=== PATIENT | male | born 1980 | race Caucasian/White ===

== ENCOUNTER 2019-09-11 08:44 | Observation (INO) | payer MEDICARE, MEDICAID, SELFPAY ==
[2019-09-11] VITALS (19 sets, daily range): BP systolic 164–207; BP diastolic 98–124; PULSE 82–112; RESP 16–26; TEMP 36.5–36.6; O2SAT 91–98; BMI 22.1
--- NOTE | 2019-09-11 08:47 | XR_ITS ---
WS: [id number] XR chest 1V portable [id number] REASON FOR EXAM: cough FINDINGS: There is evidence of a diffuse interstitial reaction the right lower lung base suggesting i nterstitial pneumonia. The heart remaining lung cantu show increased markings markedly accentuated from previous exam of [place] 2018. The heart is borderline enlarged. The hilum since and apices are normal. XR/XR chest 1V portable [id number] IMPRESSION: Interstitial infiltrate right lung base.
--- NOTE | 2019-09-11 08:48 | ED_ITS ---
HPI - General Adult General: Chief complaint: General Medical Stated complaint: SOB/missed dialysis Time Seen by Provider: 09/11/19 08:47 History of Present Illness: HPI narrative: Mr. Gibbs is a pleasant 39-year-old male who was transferred here from [facility] for dialysis. The patient was treated there for shortness of breath after missing his last 2 dialysis treatments. He denies any fever but occasionally has a cough productive of brown sputum. He has had increasing edema in his legs and orthopnea. The patient is a smoker but denies any history of COPD. He was noted to be in pulmonary edema at [facility] but also had a CT scan to evaluate for pulmonary embolism. Associated symptoms: Reports dyspnea; Deny chest pain, confusion, diaphoresis, headache(s), malaise, nausea, rash, palpitations, syncope or vomiting Review of Systems General: Reports: other (negative unless marked) Const: Denies: fever, chills, body aches, fatigue, malaise or diaphoresis Eyes: Denies: change in vision or blurry vision ENMT: Denies: throat pain, painful swallowing, hoarseness, ear pain, ear discharge, Change in hearing or nasal discharge Card: Reports: swelling of feet/ankles; Denies: chest pain, palpitations, irregular heart rhythm, syncope, pre-syncope, shortness of breath on exertion or shortness of breath when lying down Resp: Reports: shortness of breath, productive cough and non-productive cough; Denies: wheezing, coughing up blood or chest congestion GI: Denies: abdominal pain, nausea, vomiting, vomiting blood, coffee grounds in vomit, diarrhea, constipation, cramping, blood in stool or black tarry stool : Denies: flank pain, difficulty urinating, painful urination, urinary frequency, urinary urgency, decreased urine ouput, urinary incontinence or blood in urine Musc: Denies: neck pain, back pain, extremity pain, extremity swelling, joint pain, joint swelling, joint warmth or joint stiffness Skin/Breast: Denies: rash, skin tenderness or yellow skin Neuro: Denies: headache, numbness in extremities, weakness in extremities, changes in sensation, lack of coordination, difficulty walking, dizziness, vertigo or confusion Endo: Denies: excessive thirst, tired all the time, cold intolerance, excessive sweating, flushing or hot flashes Jefferson/Lymph: Denies: easy bruising, easy bleeding, petechiae or enlarged lymph nodes All/Imm: Denies: hives, throat swelling, tongue swelling, facial swelling or acute wheezing PFSH ED PFSH: Medical History End-stage renal disease on hemodialysis Hypertension Surgical History H/O hand surgery History of adenoidectomy Social History Smoking and tobacco status: current every day smoker Physical Exam Const: COMMON NORMALS: no apparent distress, oriented x3, no limitations, healthy appearing and well nourished EXAM LIMITATIONS: no altered mental status GENERAL APPEARANCE: cooperative, well kempt and well developed ORIENTATION/CONSCIOUSNESS: Yes awake HENMT: COMMON NORMALS: normocephalic, head/scalp atraumatic, hearing grossly normal bilaterally, external ears normal, EAC's normal, external nose normal and moist oral mucous membranes HEAD & SCALP: normal to inspection, normocephalic and atraumatic FACE & SINUS: normal facial exam and face symmetric NOSE: external nose normal and nares normal EXTERNAL EAR: Yes external ears normal EXTERNAL AUDITORY CANAL: EAC's normal MOUTH: oral and palatal mucosa normal and tongue normal Eye: COMMON NORMALS: PERRL, EOMs intact bilaterally, conjunctivae normal and no scleral icterus GENERAL EYE: normal appearance of both eyes and normal light reflex CONJUNCTIVA: Yes conjunctivae normal SCLERA: sclerae normal CORNEA: Yes corneas normal PUPIL: Yes PERRL DIRECT OPHTHALMOSCOPY: Yes normal light reflex Neck/C-Spine: COMMON NORMALS: full ROM, no lymphadenopathy, supple, no meningeal signs and no JVD GENERAL: Yes normal visual inspection and Yes trachea midline CERVICAL SPINE: Yes cervical ROM normal Chest: COMMONS NORMALS: inspection of chest normal and palpation of chest normal Resp: COMMON NORMALS: normal respiratory effort, no retractions and no use of accessory muscles EFFORT & INSPECTION: Yes able to speak in complete sentences AUSCULTATION: rales bilateral and diffuse Cardio: COMMON NORMALS: no JVD, regular rate, regular rhythm, S1 normal heart sound, S2 normal heart sound, no gallops, no clicks, no murmurs and no rub JUGULAR VENOUS DISTENTION: no JVD RATE: regular rate RHYTHM: regular rhythm HEART SOUNDS: S1 normal and S2 normal GI: COMMON NORMALS: soft to palpation, non-tender, no hepatosplenomegaly and no masses INSPECTION: Yes normal to inspection PALPATION: Yes soft and Yes no hepatosplenomegaly : COMMON NORMALS: Yes no CVA tenderness BLADDER/KIDNEY EXAM: Yes no CVA tenderness Back/Pelvis: COMMON NORMALS: no CVA tenderness, thoracic and lumbar spine normal to inspection, no thoracic nor lumbar tenderness and thoraco-lumbar ROM normal Extremity: COMMON NORMALS: normal to inspection, full ROM, normal capillary refill, no joint enlargement, no clubbing, cyanosis or edema and no calf tenderness Neuro: COMMON NORMALS: oriented x3, CN's II-XII intact bilaterally, moves all extremities, no focal motor deficits and no sensory deficits noted MENINGEAL SIGNS: Yes no meningeal signs Psych: COMMON NORMALS: mental status grossly normal, thought process normal, cooperative, affect normal, speech normal and activity/motor behavior normal APPEARANCE: Yes well kempt SPEECH: Yes normal speech THOUGHT PROCESS: normal thought process Skin: COMMON NORMALS: no rashes or lesions noted, skin turgor normal, no jaundice, no petechiae and no mottling GENERAL SKIN EXAM: no rashes or lesions noted and turgor normal Course Vital Signs: Vital signs: Vital Signs Temperature 97.7 F 09/11/19 08:50 Pulse Rate 101 H 09/11/19 08:50 Respiratory Rate 18 09/11/19 08:50 Blood Pressure 167/109 09/11/19 08:50 Pulse Oximetry 94 09/11/19 08:57 MDM - General Adult MDM Narrative: Medical decision making narrative: Mr. Gibbs is a nice 39-year-old male who comes from [facility] for the need of dialysis. Please see the chart that will be scanned in to the record for labs and work-up done there. Ultimately he had a normal white count and was slightly anemic with a hemoglobin of 9.4 but a normal platelet count. His potassium was normal at 4.9 but BUN and creatinine are elevated as expected for a dialysis patient. Calcium uncorrected was 7.5. Chest x-ray and CT revealed probable pulmonary edema but no pulmonary embolism. Dr. Seo was consulted from the ER is aware. Dr. Villegas is aware the patient and will see him when he arrives for dialysis. Patient will be tested for the coronavirus and be on precautions. EKG Data^: EKG 1: Attestation: I personally reviewed and interpreted this EKG as follows: EKG interpretation date: 09/11/19 EKG interpretation time: 05:09 Interpretation: EKG obtained from [facility], normal sinus rhythm at 98 beats a minute, prolonged QTC at 492 ms, normal axis, no other acute ST or T wave changes Computer generated interpretation: Chest X-Ray 09/11/19 08:47 IMPRESSION: Interstitial infiltrate right lung base. Discharge Plan Discharge Patient Disposition: Admitted As Inpatient Clinical Impression: End-stage renal disease on hemodialysis, Pulmonary edema Condition: Stable Referrals: Mal Junior [Primary Care Provider] - Coding Level of Care Code ED Manager Chemical for Chg Fwd Exam Comprehensive
[2019-09-11] MEDS: cefTRIAXone 1,000 MG in sodium chloride 0.9% (plus) 50 ML 100 MG IV (09:49)
--- NOTE | 2019-09-11 10:04 | PM.CONSULT ---
Providers/Reason For Consult Consulting Physican/Specialty*: Imani Seo DO, telenephrology Reason for Consult*: ESRD, pulmonary edema Requesting Physcian: Dr Hand Primary Care Provider: Mal Junior History of Present Illness History of Present Illness Mal Gibbs is a 39 year old male who presented to outside hospital with chief complaint of shortness of breath. Has ESRD, last dialysis was September 04. States he missed last 2 HD treatments because he needed to take daughter to physician out of town. + weakness, mild nonproductive cough, no fever, no chest pain Meds/Allergies Home Medications and Allergies Home Medications Medication Instructions Recorded Confirmed Last Taken Type albuterol sulfate 1 - 2 puff INHALATION PRN PRN 09/11/19 09/11/19 09/10/19 History clonidine HCl 0.1 mg PO PRN PRN 09/11/19 09/11/19 09/11/19 History lisinopril 20 mg PO DAILY 09/11/19 09/11/19 09/11/19 History minoxidil 2.5 mg PO DAILY 09/11/19 09/11/19 09/10/19 History nifedipine 60 mg PO DAILY 09/11/19 09/11/19 09/10/19 History Allergies Allergy/AdvReac Type Severity Reaction Status Date / Time No Known Allergies Allergy Verified 09/11/19 08:55 PFSH Acute PFSH: Medical History End-stage renal disease on hemodialysis Hypertension Surgical History H/O hand surgery History of adenoidectomy Social History Smoking and tobacco status: current every day smoker Vitals/I&O/Wt Last Vital Signs Temp 97.7 F 09/11/19 08:50 Pulse 90 09/11/19 09:32 Resp 18 09/11/19 08:50 BP 175/114 09/11/19 09:32 Pulse Ox 95 09/11/19 09:32 Weight last 48 hrs Weight 76.204 kg Physical Exam Const: GENERAL APPEARANCE: cooperative and lethargic ORIENTATION/CONSCIOUSNESS: Yes lethargic Eye: COMMON NORMALS: no scleral icterus Resp: EFFORT & INSPECTION: Yes symmetric chest movement AUSCULTATION: rales Cardio: COMMON NORMALS: regular rhythm RHYTHM: regular rhythm Extremity: NARRATIVE EXTREMITY EXAM: left arm AVF + bruit, no signs of infection Neuro: SENSORIUM/ORIENTATION: Yes lethargic Data Micro: Micro: Microbiology 09/11/19 09:32 Blood Culture - Pr eliminary Blood SPECIMEN [facility] 09/11/19 09:31 Blood Culture - Pr eliminary Blood SPECIMEN [facility] Other Data: Other data: CXR FINDINGS: There is evidence of a diffuse interstitial reaction the right lower lung base suggesting interstitial pneumonia. The heart remaining lung cantu show increased markings markedly accentuated from previous exam of December 13, 2018. The heart is borderline enlarged. The hilum since and apices are normal. A&P Additional A&P Information 1. ESRD 2. Possible pneumonia 3. Hypertension Recommend: HD today 3.5 hours, 2 liter UF as BP tolerates. HD again tomorrow to return to MWF schedule. Mal agrees with this plan. COVID test pending. Labs pending. No IVS, BPs, blood draws left arm. Adjust any medication for eGFR < 10 ml/min Coding Level of Care Code Acute Aviation Survival Technician for Chg Roxi
[2019-09-11 11:13] LABS: Hepatitis C Virus Antibody Non-Reactive (Nonreactive)
[2019-09-11 11:14] LABS: Hepatitis B Surface Antigen Non-Reactive (Nonreactive)
[2019-09-11] MEDS: acetaminophen 500 mg Tablet 1000 MG PO (12:28)
[2019-09-11] MEDS: ondansetron 2 mg/ML SDV 2 mL 4 MG IVP (15:08)
[2019-09-11] MEDS: morphine 4 mg/mL SDV 1 mL IVP (15:14)
--- NOTE | 2019-09-11 17:08 | PM.HP ---
Providers/Chief Complaint Admitting Physician: Tiarra Villegas MD Primary Care Provider: Mal Junior Chief Complaint: PULM EDEMA History of Present Illness Mal Gibbs is a 39 year old male with past medical history of hypertension and end-stage renal disease for which he undergoes maintenance hemodialysis on Thursday and Thursday as an outpatient. He reports having missed his last 2 dialysis sessions as he had to take his daughter to [place] for orthopedic treatment. He presented at [facility] today complaining of shortness of breath and was found to have pulmonary edema. He was transferred to us for urgent dialysis. He also complained of some shortness of breath and orthopnea and leg swelling increasing over the past few weeks. He says he has been coughing over the past few weeks productive of a brownish sputum. He denied any fever. Given the travel history and history of cough, COVID-19 rule out was sent. He is currently undergoing dialysis at the time of my exam. States that his shortness of breath is persisting however improved from presentation at [facility]. Per outside hospital labs are notable for creatinine of 16, potassium normal range at 3.8. CT of the chest was negative for any PE. Review of Systems General: Reports: 10 or more systems reviewed and unremarkable except in HPI and below Const: Denies: fever, chills or body aches Eyes: Denies: change in vision, blurry vision or photophobia ENMT: Reports: hoarseness; Denies: throat pain, enlarged tonsils, painful swallowing or nasal congestion Card: Denies: chest pain, palpitations, irregular heart rhythm, edema, swelling of feet/ankles, lightheadedness, pre-syncope, shortness of breath on exertion or shortness of breath when lying down Resp: Reports: shortness of breath, productive cough and wheezing; Denies: non-productive cough, stridor, pain on inspiration, change in phlegm color, coughing up blood or chest congestion GI: Denies: abdominal pain, nausea, vomiting, vomiting blood, coffee grounds in vomit, difficulty swallowing, heartburn/indigestion, diarrhea, constipation, cramping, change in stool character, blood in stool or black tarry stool : Denies: flank pain, painful urination, urinary frequency, urinary urgency, urinary hesitancy or blood in urine Musc: Denies: neck pain, back pain, extremity pain, joint swelling, joint warmth or deformity Neuro: Denies: headache, numbness in extremities, weakness in extremities, changes in sensation, difficulty walking, frequent falls, dizziness, vertigo, behavioral changes, slurred speech or seizure-like activity Psych: Denies: anxiety, depression, suicidal ideation or homicidal ideation Endo: Denies: excessive urination, excessive thirst, tired all the time, cold intolerance or hot flashes Jefferson/Lymph: Denies: easy bruising or easy bleeding Medications/Allergies Home Medications Medication Instructions Recorded Confirmed Last Taken Type albuterol sulfate 1 - 2 puff INHALATION PRN PRN 09/11/19 09/11/19 09/10/19 History clonidine HCl 0.1 mg PO PRN PRN 09/11/19 09/11/19 09/11/19 History lisinopril 20 mg PO DAILY 09/11/19 09/11/19 09/11/19 History minoxidil 2.5 mg PO DAILY 09/11/19 09/11/19 09/10/19 History nifedipine 60 mg PO DAILY 09/11/19 09/11/19 09/10/19 History Allergies Allergy/AdvReac Type Severity Reaction Status Date / Time No Known Allergies Allergy Verified 09/11/19 08:55 PFSH Acute PFSH: Medical History End-stage renal disease on hemodialysis Hypertension Surgical History H/O hand surgery History of adenoidectomy Social History Smoking and tobacco status: current every day smoker Vitals/I&O/Wt Last Vital Signs Temp 97.7 F 09/11/19 08:50 Pulse 87 09/11/19 16:48 Resp 16 09/11/19 16:48 BP 170/118 09/11/19 16:45 Pulse Ox 93 09/11/19 16:48 09/11/19 09/11/19 09/11/19 06:59 14:59 22:59 Intake Total 300 / 300 Balance 300 / 300 Weight last 48 hrs Weight 76.204 kg Physical Exam Narrative: EXAM NARRATIVE: GEN: Awake, alert and oriented, no acute distress CVS: S1S2 N RS: CTA B/L Abd: Soft, nt/nd , bs+ ALLERGIST/PEDIATRIC PULMONOLOGIST: no focal neuro deficits SKIN: multiple healed abrasions over B/L upper extremities Data Micro: Microbiology 09/11/19 09:32 Blood Culture - Preliminary Blood SPECIMEN COLLECTED 09/11/19 09:31 Blood Culture - Preliminary Blood SPECIMEN COLLECTED A&P Assessment and plan (1) Pulmonary edema: Status: Acute Qualifiers: Chronicity: acute Qualified Code(s): J81.0 - Acute pulmonary edema (2) End-stage renal disease on hemodialysis: Status: Acute (3) Hypertension: Status: Acute Additional A&P Information Admit to ICU for urgent dialysis. 1. End-stage renal disease on maintenance hemodialysis Patient missed his 2 sessions recently and likely resulted in pulmonary edema because of missed dialysis. He is currently undergoing dialysis when seen in the ICU. Symptomatically he feels much improved. Likely to get another session tomorrow prior to discharge. Because of complaint of recent worsening cough and history of travel to [place], patient underwent COVID testing in the ER with results of which are still pending at this time 2. Hypertension resume his home meds of lisinopril nifedipine and minoxidil and clonidine. Full code DVT ppx: lovenox Attestations Medical Necessity Statement*: Anticipate less than 1 midnight admission for urgent dialysis. Coding Level of Care Code Acute Waste Management Recycling Technician for Cristi Diane Diagnoses Pulmonary edema J81.0 Chronicity: acute End-stage renal disease on hemodialysis N18.6; Z99.2 Hypertension I10
[2019-09-11] MEDS: cloNIDine 0.1 mg Tablet PO (19:59)
[2019-09-12] VITALS (149 sets, daily range): BP systolic 137–190; BP diastolic 77–127; PULSE 77–114; RESP 6–28; TEMP 36.9–37.1; O2SAT 88–100; BMI 22.1
[2019-09-12 04:58] LABS: Basophils # 0.1 10^3/uL (0.0-0.1); Basophils % 0.7 %; Eosinophils # 0.2 10^3/uL (0.0-0.8); Eosinophils % 2.7 %; Hematocrit 28.1 % (42.0-52.0); Hemoglobin 9.2 g/dL (11.7-16.6); Lymphocytes # 1.5 10^3/uL (0.8-4.8); Lymphocytes % 22.5 %; Mean Corpuscular HGB Conc 32.7 g/dL (30.0-36.0); Mean Corpuscular Hemoglobin 30.3 pg (28.0-34.0); Mean Corpuscular Volume 92.4 fL (80-94); Mean Platelet Volume 10.5 fL (7.4-10.4); Monocytes # 0.5 10^3/uL (0.2-0.9); Monocytes % 6.7 %; Neutrophils # 4.6 10^3/uL (1.8-7.7); Neutrophils % 67.3 %; Nucleated Red Blood Cells % 0 %; Platelet Count 224 10^3/cmm (130-400); Red Blood Count 3.04 10^6/uL (4.1-5.3); Red Cell Distribution Width 13.9 % (12.1-15.1); White Blood Count 6.8 10^3/uL (4.0-10.0)
[2019-09-12 05:28] LABS: Alanine Aminotransferase 9 U/L (0-41); Albumin Level 3.1 g/dL (3.5-5.2); Alkaline Phosphatase 83 IU/L (40-130); Blood Urea Nitrogen 34 mg/dL (6-20); Carbon Dioxide 27 mmol/L (22-29); Chloride 96 mmol/L (98-107); Globulin 3.1 g/dL (1.3-4.6); Glomerular Filtration Rate 5.8 mL/min (90-130); Glucose 67 mg/dL (65-115); Osmolality Calculated 280 mOsm/kg (285-295); Sodium 137 mmol/L (136-145); Total Bilirubin 0.2 mg/dL (0.15-1.2); Total Protein 6.2 g/dL (6.6-8.7)
[2019-09-12 05:41] LABS: Aspartate Amino Transferase 12 U/L (0-40)
[2019-09-12 06:16] LABS: Phosphorus 7.9 mg/dL (2.5-4.5)
[2019-09-12] MEDS: minoxidil 10 mg Tablet 2.5 MG PO (08:27)
[2019-09-12] MEDS: NIFEdipine ER (24 hr) 30 mg Tablet 60 MG PO (08:27)
[2019-09-12] MEDS: lisinopril 20 mg Tablet PO (08:27)
--- NOTE | 2019-09-12 09:19 | P.PN_ITS ---
Subjective Subjective: Interval history: Patient discussed with RN as he is currently under COVID rule out and he doesn't have a phone in the room. Per RN he is well today after dialysis yesterday with improving SOB. Bps remain high today. No other acute uremic Sx. Vitals/I&O/Wt Last Vital Signs Temp 98.5 F 09/12/19 05:54 Pulse 99 09/12/19 08:40 Resp 28 H 09/12/19 08:40 BP 180/114 09/12/19 08:45 Pulse Ox 94 09/12/19 08:40 09/11/19 09/12/19 09/12/19 22:59 06:59 14:59 Intake Total 540 / 540 120 / 660 Balance 540 / 540 120 / 660 Weight last 48 hrs Weight 76.204 kg Weight 76.204 kg Physical Exam Narrative: EXAM NARRATIVE: PE relayed to me by bedside RN GEN: Awake, alert and oriented, no acute distress CVS: S1S2 N RS: CTA B/L Abd: Soft, nt/nd , bs+ SHIP'S ELECTRONIC WARFARE OFFICER: no focal neuro deficits SKIN: multiple healed abrasions over B/L upper extremities Const: COMMON NORMALS: no apparent distress, oriented x3, no limitations, healthy appearing and well nourished EXAM LIMITATIONS: no altered mental status GENERAL APPEARANCE: cooperative, well kempt, well developed and lethargic ORIENTATION/CONSCIOUSNESS: Yes awake and Yes lethargic HENMT: COMMON NORMALS: normocephalic, head/scalp atraumatic, hearing grossly normal bilaterally, external ears normal, EAC's normal, external nose normal and moist oral mucous membranes HEAD & SCALP: normal to inspection, normocephalic and atraumatic FACE & SINUS: normal facial exam and face symmetric NOSE: external nose normal and nares normal EXTERNAL EAR: Yes external ears normal EXTERNAL AUDITORY CANAL: EAC's normal MOUTH: oral and palatal mucosa normal and tongue normal Eye: COMMON NORMALS: PERRL, EOMs intact bilaterally, conjunctivae normal and n o scleral icterus GENERAL EYE: normal appearance of both eyes and normal light reflex CONJUNCTIVA: Yes conjunctivae normal SCLERA: sclerae normal CORNEA: Yes corneas normal PUPIL: Yes PERRL DIRECT OPHTHALMOSCOPY: Yes normal light reflex Neck/C-Spine: COMMON NORMALS: full ROM, no lymphadenopathy, supple, no meningeal signs and no JVD GENERAL: Yes normal visual inspection and Yes trachea midline CERVICAL SPINE: Yes cervical ROM normal Chest: COMMONS NORMALS: inspection of chest normal and palpation of chest normal Resp: COMMON NORMALS: normal respiratory effort, no retractions and no use of accessory muscles EFFORT & INSPECTION: Yes able to speak in complete sentences and Yes symmetric chest movement AUSCULTATION: rales bilateral and diffuse Cardio: COMMON NORMALS: no JVD, regular rate, regular rhythm, S1 normal heart sound, S2 normal heart sound, no gallops, no clicks, no murmurs and no rub JUGULAR VENOUS DISTENTION: no JVD RATE: regular rate RHYTHM: regular rhythm HEART SOUNDS: S1 normal and S2 normal GI: COMMON NORMALS: soft to palpation, non-tender, no hepatosplenomegaly and no masses INSPECTION: Yes normal to inspection PALPATION: Yes soft and Yes no hepatosplenomegaly : COMMON NORMALS: Yes no CVA tenderness BLADDER/KIDNEY EXAM: Yes no CVA tenderness Back/Pelvis: COMMON NORMALS: no CVA tenderness, thoracic and lumbar spine normal to inspection, no thoracic nor lumbar tenderness and thoraco-lumbar ROM normal Extremity: COMMON NORMALS: normal to inspection, full ROM, normal capillary refill, no joint enlargement, no clubbing, cyanosis or edema and no calf tenderness NARRATIVE EXTREMITY EXAM: left arm AVF + bruit, no signs of infection Neuro: COMMON NORMALS: oriented x3, CN's II-XII intact bilaterally, moves all extremities, no focal motor deficits and no sensory deficits noted SENSORIUM/ORIENTATION: Yes lethargic MENINGEAL SIGNS: Yes no meningeal signs Psych: COMMON NORMALS: mental status grossly normal, thought process normal, cooperative, affect normal, speech normal and activity/motor behavior normal APPEARANCE: Yes well kempt SPEECH: Yes normal speech THOUGHT PROCESS: normal thought process Skin: COMMON NORMALS: no rashes or lesions noted, skin turgor normal, no jaundice, no petechiae and no mottling GENERAL SKIN EXAM: no rashes or lesions noted and turgor normal Data : 09/12/19 04:40 09/12/19 04:40 Micro: Microbiology 09/11/19 09:32 Blood Culture - Preliminary Blood SPECIMEN COLLECTED 09/11/19 09:31 Blood Culture - Preliminary Blood SPECIMEN COLLECTED A&P Additional A&P Information 1. ESRD - will dialyze now (it'll make life easier for the dialysis team) - 2K, UF 2-3L 2. Hypertension - no change in meds until after ultrafiltration today 3. Anemia/ Bone metabolism of ESRD to be managed in the outpatient clinic, cont home meds 4. SOB; likely just needed dialysis to clean him up - pending COVID rule out then ok to go home Attestations Medical Necessity Statement*: ESRD mgmt Coding Level of Care Code Acute Freight Air Brake Fitter for Cristi Diane
[2019-09-12 15:40] LABS: Coronavirus Lab Test PTC NOT DETECTED
--- NOTE | 2019-09-12 15:56 | P.DS_ITS ---
Discharge Providers Date of Admission: 09/11/19 09:20 Date of Discharge: September 12, 2019 Attending Provider at Admission: Tiarra Villegas MD Attending Provider at Discharge: Anya Vargas MD Primary Care Provider: Mal Junior Diagnoses at Discharge Discharge Diagnosis (1) Noncompliance: Status: Resolved Problem details: secondary to acute family medical issues (2) Pulmonary edema: Status: Acute Qualifiers: Chronicity: acute Qualified Code(s): J81.0 - Acute pulmonary edema (3) End-stage renal disease on hemodialysis: Status: Chronic (4) Hypertension: Status: Chronic Qualifiers: Hypertension type: renovascular hypertension Qualified Code(s): I15.0 - Renovascular hypertension Reason for Visit Reason for Visit: Reason For Visit: PULM EDEMA Hospital Course Hospital Course: Patient is a 39-year-old on hemodialysis Wednesdays and Fridays, following with Dr. Delcid, who presented to the hospital with increasing shortness of breath. He presented originally to [facility] and was transferred here for urgent dialysis. This was done on the day of admission and again the following day. Patient's daughter has been ill and receiving medical care in [place]. This was actually why he had missed dialysis. With his travel history and report of worsening cough, he did undergo COVID testing which was negative. Blood pressures were quite variable the did respond to his usual home medication regimen. Patient was in stable condition for discharge. No changes to chronic medications although I did provide him with a refill of albuterol. Physical Exam Const: OTHER: Alert, oriented x3, cooperative Resp: OTHER: Clear to auscultation bilaterally rales rhonchi or wheezes noted, no accessory muscle use noted Cardio: OTHER: Regular rate and rhythm, no murmurs gallops or rubs. Pulses 2+ and equal at both feet. GI: OTHER: Abdomen soft, nontender Discharge Data Data Completed and Pending: Completed Studies During Hospitalization Category Date Time Status XR chest 1V sabino ble [id number] Stat Exams 09/11/19 08:47 Completed Pending at discharge Category Date Time Status Blood Culture Sta t Lab 09/11/19 09:32 Results Labs from last 24 hours 09/12/19 09/12/19 09/12/19 04:40 04:40 04:40 WBC 6.8 RBC 3.04 L Hgb 9.2 L Hct 28.1 L MCV 92.4 MCH 30.3 MCHC 32.7 RDW 13.9 Plt Count 224 MPV 10.5 H Neut % (Auto) 67.3 Lymph % (Auto) 22.5 Flagler % (Auto) 6.7 Eos % (Auto) 2.7 Baso % (Auto) 0.7 Neut # (Auto) 4.6 Lymph # (Auto) 1.5 Flagler # (Auto) 0.5 Eos # (Auto) 0.2 Baso # (Auto) 0.1 Nucleated RBC % (a uto) 0 Nucleated RBCs # 0.0 Sodium 137 Potassium 5.0 Chloride 96 L Carbon Dioxide 27 Anion Gap 19.0 BUN 34 H Creatinine 10.2 H* GFR Calculation 5.8 L Glucose 67 Calculated Osmolal ity 280 L Calcium 8.0 L Phosphorus 7.9 H* Total Bilirubin 0.2 AST 12 ALT 9 Alkaline Phosphata se 83 Total Protein 6.2 L Albumin 3.1 L Globulin 3.1 Nasal/Oral COVID-1 9 PCR 09/11/19 10:05 WBC RBC Hgb Hct MCV MCH MCHC RDW Plt Count MPV Neut % (Auto) Lymph % (Auto) Flag[place] % (Auto) Eos % (Auto) Baso % (Auto) Neut # (Auto) Lymph # (Auto) [place] # (Auto) Eos # (Auto) Baso # (Auto) Nucleated RBC % (a uto) Nucleated RBCs # Sodium Potassium Chloride Carbon Dioxide Anion Gap BUN Creatinine GFR Calculation Glucose Calculated Osmolal ity Calcium Phosphorus Total Bilirubin AST ALT Alkaline Phosphata se Total Protein Albumin Globulin Nasal/Oral COVID-1 9 PCR Not detected Vitals: Last Vital Signs Temp 98.5 F 09/12/19 05:54 Pulse 109 H 09/12/19 14:25 Resp 17 09/12/19 14:25 BP 137/77 09/12/19 14:25 Pulse Ox 93 09/12/19 14:25 Discharge Plan Discharge Patient Disposition: Home, Self-Care Condition: Stable Prescriptions: Continued clonidine HCl 0.1 mg tablet 0.1 mg PO PRN PRN (Reason: Anxiety) RF: 0 lisinopril 20 mg tablet 20 mg PO DAILY RF: 0 minoxidil 2.5 mg tablet 2.5 mg PO DAILY RF: 0 nifedipine 60 mg tablet extended release 60 mg PO DAILY RF: 0 Changed albuterol sulfate 90 mcg/actuation HFA aerosol inhaler 1 - 2 puff INHALATION Q6H PRN (Reason: DIFFICULTY BREATHING) Qty: 18 RF: 0 Discharge Orders: Discharge Order (Routine); Ordered 09/12/19 Ordered By: Anya Vargas Referrals: Dialysis, as scheduled [Other] - 1-3 days Nephrology [Provider Group] - 7-10 days Mal Junior [Primary Care Provider] - 1 week (Appointment made for Thursday, September 19, 2019 at 1:40pm. ) Discharge Diet: Usual diet Discharge Activity: Resume usual activity Patient Instructions: Pulmonary Edema (DC), Hemodialysis (DC) Discharge Date/Time: 09/12/19 18:32 Discharge Attestations Time Spent in Discharge Care*: less than 30 min Quality Metrics Clinical Quality Measures During this hospital stay, did patient experience: None Coding Level of Care Code Acute Ticket Speculator for Chg Fwd Diagnoses Noncompliance Z91.19 Pulmonary edema J81.0 Chronicity: acute End-stage renal disease on hemodialysis N18.6; Z99.2 Hypertension I15.0 Hypertension type: renovascular hypertension
[2019-09-12] MEDS: cloNIDine 0.1 mg Tablet PO (16:27)
== END 2019-09-12 18:32 | disposition home or self-care (01) ==
LOC: ER 12:40 → ICU 15:23
PROVIDERS: Internal Medicine; Admitting Provider Student in an Organized Health Care Education/Training Program; Emergency Provider Emergency Medicine; PCP Family Medicine; Visit Provider Hospitalist
DX: J81.0 Acute pulmonary edema (principal); I12.0 Hypertensive chronic kidney disease with stage 5 chronic kidney disease or end stage renal disease; N18.6 End stage renal disease; Z99.2 Dependence on renal dialysis; Z91.19 Patient's noncompliance with other medical treatment and regimen; D63.1 Anemia in chronic kidney disease; F17.210 Nicotine dependence, cigarettes, uncomplicated
CPT/HCPCS: 12345; 36415; 71045; 80053; 84100; 85025; 86706; 86803; 87040; 87340; 87635; 90935; 96365; 96375; 99283; 99285; G0378; J0696; J2270; J2405

== ENCOUNTER 2019-10-22 20:48 | Inpatient (IN) | payer MEDICARE, MEDICAID, SELFPAY ==
[2019-10-22 20:49] VITALS: BP 184/126; PULSE 99; RESP 18; TEMP 36.6; O2SAT 96; BMI 21.3
[2019-10-22] MEDS: hyDRALAzine 20 mg/mL INJ 1 mL IVP ×2 (21:19→23:57)
[2019-10-22 21:21] VITALS: BP 181/122; PULSE 101; RESP 22; O2SAT 100
[2019-10-22 22:20] LABS: Bilirubin Urine Neg (NEGATIVE); Blood Urine 2+ (Negative); Glucose Urine UA 1+ (Normal); Ketones Urine Negative (Negative); Leukocyte Esterase Urine Negative (Negative); Nitrate Urine Negative (Negative); Protein Urine 3+ (Negative); Sulfosalicylic Acid Urine Positive (Negative); Urine Appearance Clear (CLEAR); Urine Color Yellow (Yellow); Urobilinogen Urine Norm (Negative); pH Urine 9 (5-7)
[2019-10-22 22:21] LABS: Add Urine Microscopic? YES
[2019-10-22 22:22] LABS: Add Urine Culture? Yes; Bacteria Urine TRACE; Mucus Urine TRACE; Squamous Epithelial Cell Urine RARE (0-5); WBC Urine 0-4 /hpf (0-5)
[2019-10-22 22:45] VITALS: BP 192/126; PULSE 76; RESP 16; O2SAT 100
--- NOTE | 2019-10-22 22:50 | PM.HP ---
Providers/Chief Complaint Admitting Physician: Bob Gonzalez Primary Care Provider: Mal Junior Chief Complaint: NEEDS DIALYSIS History of Present Illness Mal Gibbs is a 39 year old gentleman transferred to our ER from [facility] where he presented with dyspnea, severe orthopnea where he cannot lay down flat, the symptoms have been reportedly progressively worsening for about a week. He does get hemodialysis 3 times a week, and says he did miss a session last week, but this week has undergone all of them. Last dialysis was yesterday. At [facility] he was assessed by CTA PE protocol, which did not reveal PE, but revealed interstitial edema, possibly pneumonitis. D-dimer was abnormal at 3.45. Troponin was elevated 59. Otherwise no leukocytosis, mild anemia hemoglobin 10.4, mild hyponatremia sodium 135, potassium 3.5, BUN 22, creatinine 0.24, phosphorus mildly elevated 5.3. He was transferred here for additional assessment and admission. In ER he is noted to be very hypertensive, blood pressure 190s over 130s, for which he received 20 mg of hydralazine, yet blood pressure still 192/126 after initial improvement. He states that his blood pressure is very often very elevated, and in fact for him these numbers are actually good . He states that not infrequently his top numbers may be in the high 200s, bottom number close to 200. 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 He does not have an automatic 1. He has not had any fever, but does report that he has been having cough, also lasting for about a week. He says cough is productive of phlegm, sometimes yellowish in appearance. He is not having chest pain. Denies any hemoptysis. He is feeling somewhat cold, denies chills. Review of Systems Const: Denies: fever(s), chills, body aches or malaise Eyes: Denies: change in vision or eye redness ENMT: Denies: throat pain, oral sores or ear or mastoid pain Card: Reports: edema (trace), dyspnea on exertion and orthopnea; Denies: chest pain or pre-syncope Resp: Reports: dyspnea and productive cough; Denies: change in phlegm color or hemoptysis GI: Denies: abdominal pain, nausea, vomiting, diarrhea, constipation, hematochezia or melena : Denies: flank pain, difficulty urinating, urinary frequency or hematuria Musc: Denies: back pain, joint swelling or joint redness Skin/Breast: Denies: rash, sores or new lesions Neuro: Denies: headache(s), numbness in extremities, weakness in extremities, dizziness, confusion or seizure-like activity Endo: Denies: polyuria or polydipsia Jefferson/Lymph: Denies: easy bleeding or purpura All/Imm: Denies: urticaria, throat swelling or tongue swelling Medications/Allergies Home Medications Medication Instructions Recorded Confirmed Last Taken Type clonidine HCl 0.1 mg PO PRN PRN 09/11/19 09/11/19 09/11/19 History lisinopril 20 mg PO DAILY 09/11/19 09/11/19 09/11/19 History minoxidil 2.5 mg PO DAILY 09/11/19 09/11/19 09/10/19 History nifedipine 60 mg PO DAILY 09/11/19 09/11/19 09/10/19 History albuterol sulfate 1 - 2 puff INHALATION Q6H PRN #18 09/12/19 Unknown Rx gm Allergies Allergy/AdvReac Type Severity Reaction Status Date / Time No Known Allergies Allergy Verified 09/11/19 08:55 PFSH Acute PFSH: Medical History End-stage renal disease on hemodialysis Hypertension Surgical History H/O hand surgery History of adenoidectomy Family History Other Healthy adult Social History Smoking and tobacco status: current every day smoker Alcohol intake: never Substance/Drug Use: never Household members: family Marital status: Current occupational status: disabled Vitals/I&O/Wt Last Vital Signs Temp 97.9 F 10/22/19 20:49 Pulse 76 10/22/19 22:45 Resp 16 10/22/19 22:45 BP 192/126 10/22/19 22:45 Pulse Ox 100 10/22/19 22:45 Weight last 48 hrs Weight 73.482 kg Physical Exam Const: COMMON NORMALS: no acute distress and patient oriented x3 OTHER: Sitting forward HENMT: COMMON NORMALS: oropharynx normal Neck/C-Spine: COMMON NORMALS: no JVD Resp: COMMON NORMALS: normal respiratory effort AUSCULTATION: wheezes and diminished lung sounds Cardio: COMMON NORMALS: no JVD, regular rhythm, S1 normal heart sound present, S2 normal heart sound present and No murmurs present (Cardio) RHYTHM: regular rhythm HEART SOUNDS: S1 normal heart sound present and S2 normal heart sound present GI: COMMON NORMALS: Normal to inspection, nondistended, normoactive bowel sounds present, Soft to palpation and non-tender PALPATION: Yes Soft to palpation Extremity: COMMON NORMALS: no joint enlargement GENERAL: Yes edema (trace) Neuro: COMMON NORMALS: patient oriented x3 and moves all extremities Skin: COMMON NORMALS: no rashes or lesions noted GENERAL SKIN EXAM: no rashes or lesions noted A&P Assessment and plan (1) Dyspnea: Progressive dyspnea, orthopnea, progressive over the last 7 days or so. At [facility] had CTA of the chest which did not reveal PE. Bilateral inflow trace, interstitial edema, pneumonitis cannot be ruled out. He does have productive cough. He is also wheezing on exam. He is a current smoker. I cannot rule out he also has underlying COPD, although he was never formally assessed. He does at least have some bronchitis. Reports yellow sputum. I do not see that he received any medications at [facility]. At this time he is not requiring any oxygen, but is dyspneic, sitting forward in bed. Distal request for nephrology assessment, additional hemodialysis session. We will treat for community-acquired pneumonia. Check for COVID-19. Check UDS. Assess TTE. Treat suspected undiagnosed underlying COPD exacerbation. Status: Acute (2) Pulmonary edema: Additional session hemodialysis tonight. Treatment extremely high blood pressures. Interstitial pulmonary edema, assess for COVID-19 as above. Possible pneumonitis, treated as above for suspected community acquired pneumonia. Monitor oxygenation. TTE. Renal, hemodialysis, cardiac diet. Status: Acute Qualifiers: Chronicity: acute Qualified Code(s): J81.0 - Acute pulmonary edema (3) Pneumonitis: As above. Collect sputum culture, bacterial antigens. Rapid flu negative. Antibiotics as above. Status: Acute (4) Hypertension: Extremely poorly controlled, resistant hypertension, on multiple medications following with nephrology. Reports his blood pressures not infrequently may be in 300s systolic, 200s diastolic. Here after receiving a dose of hydralazine 20 mg blood pressure initially down into 180s over 120s, however, subsequently with a rise again into 190s systolic. At this time will resume his home medications. Will make clonidine scheduled. Add hydralazine as needed for persistently elevated blood pressures. HD tonight. He states he has not been measuring blood pressures at home as he does not know how to do that by himself. Discussed with him his extreme elevated blood pressures, risk for cardiovascular complications, and other complications, to which she states understands and will try to purchase himself and automatic pressure monitor. Status: Chronic Qualifiers: Hypertension type: renovascular hypertension Qualified Code(s): I15.0 - Renovascular hypertension (5) Troponin level elevated: Troponin level 59 over at [facility]. Will order troponin EKG series here. He denies any chest pain at this time. EKG without obvious changes indicative of ischemia. Will assess A1c, lipid profile. Status: Acute (6) Smoking addiction: Discussed for 3 and half minutes. He reports he understands he needs to quit, and has actually been cutting down. Will provide nicotine replacement while in the hospital. Status: Acute (7) End-stage renal disease on hemodialysis: Hemodialysis Thursday. Reports secondary to hypertensive nephropathy. Follows with Dr. Ramsey. Appreciate nephrology assessment. Status: Chronic Attestations Medical Necessity Statement*: Admission of over 2 midnights is been needed for assessment of management of pulmonary edema, possible pneumonia, poorly controlled, severely elevated blood pressure, in the setting of end-stage renal disease and other comorbidities. Coding Level of Care Code Acute Nutritional Services Cook for Cristi Diane Diagnoses Dyspnea R06.00 Pulmonary edema J81.0 Chronicity: acute Pneumonitis J18.9 Hypertension I15.0 Hypertension type: renovascular hypertension Troponin level elevated R79.89 Smoking addiction F17.200 End-stage renal disease on hemodialysis N18.6; Z99.2
[2019-10-22 23:21] VITALS: BP 188/132; PULSE 109; RESP 16; O2SAT 97
--- NOTE | 2019-10-22 23:32 | PM.CONSULT ---
Providers/Reason For Consult Consulting Physican/Specialty*: Imani Seo DO, telenephrology Reason for Consult*: ESRD, pulmonary edema Requesting Physcian: Bob Gonzalez Attending Physician: Bob Gonzalez Primary Care Provider: Mal Junior History of Present Illness History of Present Illness Mal Gibbs is a 39 year old male who presented to outside hospital with chief complaint of dyspnea. + orthopnea. CTA no PE. CXR pulmonary edema v interstital pneumonia. ESRD, receives [facility]center HD MWF. Last treatment 10/21/2019 Meds/Allergies Home Medications and Allergies Home Medications Medication Instructions Recorded Confirmed Last Taken Type clonidine HCl 0.1 mg PO PRN PRN 09/11/19 09/11/19 09/11/19 History lisinopril 20 mg PO DAILY 09/11/19 09/11/19 09/11/19 History minoxidil 2.5 mg PO DAILY 09/11/19 09/11/19 09/10/19 History nifedipine 60 mg PO DAILY 09/11/19 09/11/19 09/10/19 History albuterol sulfate 1 - 2 puff INHALATION Q6H PRN #18 09/12/19 Unknown Rx gm Allergies Allergy/AdvReac Type Severity Reaction Status Date / Time No Known Allergies Allergy Verified 09/11/19 08:55 PFSH Acute PFSH: Medical History End-stage renal disease on hemodialysis Hypertension Surgical History H/O hand surgery History of adenoidectomy Family History Other Healthy adult Social History Smoking and tobacco status: current every day smoker Alcohol intake: never Substance/Drug Use: never Household members: family Marital status: Current occupational status: disabled Vitals/I&O/Wt Last Vital Signs Temp 97.9 F 10/22/19 20:49 Pulse 109 H 10/22/19 23:21 Resp 16 10/22/19 23:21 BP 188/132 10/22/19 23:21 Pulse Ox 97 10/22/19 23:21 Weight last 48 hrs Weight 73.482 kg A&P Additional A&P Information Impression: Orthopnea, severe hypertension, ESRD Recommendation: HD/UF 2 liters/ 2hours tonight. Agree with IV hydralazine. Lisinopril can be increased. Consult Attestations Medical Necessity Statement: per primary service Coding Level of Care Code Acute Pressure Steamer Tender for Cristi Diane
[2019-10-23] VITALS (50 sets, daily range): BP systolic 130–215; BP diastolic 90–133; PULSE 88–115; RESP 4–25; TEMP 37–37.2; O2SAT 89–98; BMI 21.3
[2019-10-23 00:14] LABS: Amphetamines Screen Urine Negative (Negative); Barbiturates Screen Urine Negative (Negative); Benzodiazepines Screen Urine Negative (Negative); Cocaine Screen Urine Negative (Negative); Opiate Screen Urine Negative (Negative); PCP Screen Urine Negative (Negative); THC Screen Urine Negative (Negative)
--- NOTE | 2019-10-23 00:15 | ECG_ITS ---
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 Measurements Intervals [place] Rate: 111 P: 55 HI: 144 QRS: 81 QRSD: 94 T: 88 QT: 394 QTc: 538 Interpretive Statements SINUS TACHYCARDIA POSSIBLE LEFT ATRIAL ENLARGEMENT [-0.1mV P WAVE IN V1/V2] NONSPECIFIC T-WAVE ABNORMALITY Compared to ECG 08/01/2018 03:42:44 T-wave abnormality now present Electronically Signed On 10-23-2019 13:39:08 CDT by Rosalia Dia M.D. [email or web address]
[2019-10-23] MEDS: cefTRIAXone 1,000 MG in sodium chloride 0.9% (plus) 50 ML 100 MG IV (00:38)
[2019-10-23] MEDS: heparin 5,000 unit/mL INJ 1 mL 5000 UNIT SUBCUT ×3 (00:38→16:58)
[2019-10-23] MEDS: nicotine 14 mg Patch 1 PATCH TRANSDERMA (00:39)
[2019-10-23 00:55] LABS: Chol HDL Ratio 4.31 mg/dL (1.0-5.00); Cholesterol 151 mg/dL (0-200); HDL Cholesterol 35 mg/dL (60-100); LDL Cholesterol Calculated 93 mg/dL (50-129); Triglycerides 114 mg/dL (0-150); Troponin(5th) Baseline 58 ng/L (0-15); VLDL Cholestrol Calculation 23 mg/dL (0-30)
--- NOTE | 2019-10-23 01:00 | PC.NURSE ---
Dialysis nurse at bedside. Telenephrology cart used to receive call from Dr. Sanders in nephrology. She was made aware of pt high BP and instructed nurse to NOT give any medicine for BP until we see how dialysis affects pressures.
[2019-10-23] MEDS: azithromycin 500 MG in sodium chloride 0.9% 250 ML 250 MG IV (01:06)
--- NOTE | 2019-10-23 01:24 | ED_ITS ---
HPI - SOB/Dyspnea General: Chief Complaint: Shortness of Breath/Dyspnea Stated Complaint: Direct Admit Time Seen by Provider: 10/22/19 20:57 History of Present Illness: HPI Narrative: 39-year-old male dialysis patient, transferred here from an outside facility, with shortness of breath. The patient states he cannot lie down without feeling significantly short of breath. He is hypertensive, which is not terribly abnormal for him. He had dialysis yesterday normally. He is not had fever. He has no contact that is known with any patients with coronavirus he is no more swollen than usual. CTA was performed during work-up at the outside facility showing no pulmonary embolus, but significant interstitial edema/pneumonitis. MD elicited complaint: shortness of breath Pertinent past history: other (No failure) Onset (ago): hour(s) Timing: constant Severity: moderate Exacerbating factors: lying flat Relieving factors: oxygen Associated symptoms: Reports chest pain and cough; Deny abdominal pain, dizziness, fever(s), nausea or vomiting Treatment prior to arrival: oxygen Related Data: Home oxygen amount: none Review of Systems Const: Denies: fever(s) or chills Eyes: Denies: change in vision ENMT: Denies: swelling of lips/tongue, epistaxis, post nasal drip or sinus pain Card: Reports: chest pain Resp: Denies: dyspnea, productive cough, non-productive cough or wheezing GI: Denies: abdominal pain, nausea or vomiting : Denies: difficulty urinating or hematuria Musc: Reports: back pain; Denies: neck pain or joint warmth Skin/Breast: Denies: rash, pruritus or erythema Neuro: Denies: headache(s), dizziness or vertigo Psych: Denies: anxiety PFSH ED PFSH: Medical History End-stage renal disease on hemodialysis Hypertension Surgical History H/O hand surgery History of adenoidectomy Family History Other Healthy adult Social History Smoking and tobacco status: current every day smoker Alcohol intake: never Substance/Drug Use: never Household members: family Marital status: Current occupational status: disabled Physical Exam Const: GENERAL APPEARANCE: well developed ORIENTATION/CONSCIOUSNESS: Yes oriented to person, Yes oriented to place and Yes oriented to time HENMT: COMMON NORMALS: normocephalic, external ears normal and Normal external nose present HEAD & SCALP: normocephalic FACE & SINUS: normal facial exam NOSE: Normal external nose present and No nasal discharge present EXTERNAL EAR: Yes external ears normal MOUTH: tongue normal Eye: COMMON NORMALS: Equal, round and reactive pupils present, EOMs intact bilaterally and conjunctivae normal EYELID: eyelids normal CONJUNCTIVA: Yes conjunctivae normal PUPIL: Yes Equal, round and reactive pupils present Neck/C-Spine: GENERAL: No tracheal deviation Chest: COMMONS NORMALS: normal inspection of the chest CHEST: No tenderness Resp: EFFORT & INSPECTION: Yes tachypneic, Yes respiratory distress, No retractions, No uses accessory muscles and No tracheal deviation AUSCULTATION: rhonchi, wheezes and lung sounds not diminished Cardio: COMMON NORMALS: regular rate and regular rhythm RATE: regular rate RHYTHM: regular rhythm HEART SOUNDS: no murmurs PERIPHERAL PULSES: radial pulses present GI: INSPECTION: No abdominal distension AUSCULTATION: No Hyperactive bowel sounds present and No Hypoactive bowel sounds present PALPATION: No Guarding due to palpation present (GI) and No Rigid due to palpation PERCUSSION: no dullness to percussion and no tympanic to percussion Neuro: SENSORIUM/ORIENTATION: Yes oriented to person, Yes oriented to place and Yes oriented to time Psych: COMMON NORMALS: mental status grossly normal Skin: COMMON NORMALS: no rashes or lesions noted GENERAL SKIN EXAM: no rashes or lesions noted Course Vital Signs: Vital signs: Vital Signs Temperature 97.9 F 10/22/19 20:49 Pulse Rate 108 H 10/23/19 00:10 Respiratory Rate 20 H 10/23/19 00:10 Blood Pressure 198/122 10/23/19 00:10 Pulse Oximetry 96 10/23/19 00:10 MDM - SOB/Dyspnea MDM Narrative: Medical decision making narrative: 39-year-old male with chronic renal failure presents with significant shortness of breath. CTA at outside facility shows interstitial edema versus pneumonitis. He is significantly hypertensive. There are no effusions. This is likely related to the hypertension, although other causes cannot be ruled out. He is placed on oxygen, and feels better. His blood pressure is treated. Nephrology was consulted from the ER, and will provide a couple of hours of ultrafiltration given his presenting symptoms. He is tested for novel coronavirus from the ER, and will remain on isolation precautions in the ICU. Lab Data: Labs: Lab Results 10/22/19 10/22/19 Range/Units 21:17 21:17 Urine Color Yellow (Yellow) Urine Appearance Clear (CLEAR) Urine pH 9 H (5-7) Ur Specific Gravit y 1.010 (1.005-1.030) Urine Protein 3+ H (Negative) Urine Glucose (UA) 1+ (Normal) Urine Ketones Negative (Negative) Urine Blood 2+ H (Negative) Urine Nitrate Negative (Negative) Urine Bilirubin Neg (NEGATIVE) Prot Sulfosalicyli c Acd Positive (Negative) Urine Urobilinogen Norm (Negative) mg/dL Ur Leukocyte Maricel ase Negative (Negative) Urine RBC 10-15 H (0-2) /hpf Urine WBC 0-4 H (0-5) /hpf Ur Squamous Epith Cells Rare (0-5) Urine Bacteria Trace (NONE) Urine Mucus Trace Urine Opiates Scre en Negative (Negative) ng/mL Ur Barbiturates Sc reen Negative (Negative) ng/mL Ur Phencyclidine S crn Negative (Negative) ng/mL Ur Amphetamines Sc reen Negative (Negative) ng/mL U Benzodiazepines Scrn Negative (Negative) ng/mL Urine Cocaine Scre en Negative (Negative) ng/mL U Marijuana (THC) Screen Negative (Negative) ng/mL Discharge Plan Discharge Patient Disposition: Admitted As Inpatient Admit Provider: Bob Gonzalez Clinical Impression: End-stage renal disease on hemodialysis Hypertension Qualifiers: Hypertension type: secondary to other renal disorders Qualified Code(s): I15.1 - Hypertension secondary to other renal disorders Pulmonary edema Qualifiers: Chronicity: acute Qualified Code(s): J81.0 - Acute pulmonary edema Condition: Stable Discharge Date/Time: 10/23/19 00:14 Coding Level of Care Code ED Wire Communications Engineer for Cristi Fwd Exam Comprehensive
[2019-10-23] MEDS: ondansetron 2 mg/ML SDV 2 mL 4 MG IVP (01:47)
[2019-10-23 02:24] LABS: Troponin 5 2HR 58.22 ng/L (0-15); Troponin 5 2HR Delta 0.22 ABS# (0-10)
[2019-10-23] MEDS: hyDRALAzine 20 mg/mL INJ 1 mL IVP ×3 (03:03→22:29)
[2019-10-23] MEDS: cloNIDine 0.1 mg Tablet PO (03:40)
--- NOTE | 2019-10-23 03:43 | PC.NURSE ---
Pt has been very stoic since arrival to ICU. Pt was nauseated when the nicotine oatch was applied, but once it was removied and zofran was given, pt stated nausea went away. Pt said his head was hurting but that this was normal when his BP was high. Pt denies any other pain, but seems to be anxious or in pain. Pt was sitting up, curled into a ball on the bed for the duration of dialysis. Nurse was able to get pt to lay back and rest a bit afterwards, but pt continues to have a high BP. Dr. Gonzalez wa notified.
[2019-10-23] MEDS: albuterol 8 gm MDI 1 PUFF INHALATION (03:54)
--- NOTE | 2019-10-23 05:12 | ECG_ITS ---
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 Measurements Intervals [place] Rate: -1 P: NC: -1 QRS: 0 QRSD: -1 T: 0 QT: -1 QTc: Interpretive Statements SINUS TACHYCARDIA POSSIBLE LEFT ATRIAL ENLARGEMENT WARNING: DATA QUALITY MAY AFFECT INTERPRETATION Compared to ECG 10/23/2019 00:39:19 Sinus tachycardia no longer present T-wave abnormality no longer present Electronically Signed On 10-23-2019 13:45:43 CDT by Rosalia Dia M.D. [id number]
[2019-10-23 06:18] LABS: Basophils # 0.1 10^3/uL (0.0-0.1); Basophils % 0.7 %; Eosinophils # 0.2 10^3/uL (0.0-0.8); Eosinophils % 2.3 %; Hematocrit 32.7 % (42.0-52.0); Hemoglobin 10.4 g/dL (11.7-16.6); Lymphocytes % 13.9 %; Mean Corpuscular HGB Conc 31.8 g/dL (30.0-36.0); Mean Corpuscular Hemoglobin 30.1 pg (28.0-34.0); Mean Corpuscular Volume 94.8 fL (80-94); Mean Platelet Volume 9.3 fL (7.4-10.4); Monocytes # 0.5 10^3/uL (0.2-0.9); Monocytes % 6.6 %; Neutrophils # 5.4 10^3/uL (1.8-7.7); Neutrophils % 76.4 %; Nucleated Red Blood Cells % 0 %; Platelet Count 225 10^3/cmm (130-400); Red Blood Count 3.45 10^6/uL (4.1-5.3); Red Cell Distribution Width 14.2 % (12.1-15.1); White Blood Count 7.1 10^3/uL (4.0-10.0)
[2019-10-23 06:40] LABS: Alanine Aminotransferase 13 U/L (0-41); Albumin Level 3.4 g/dL (3.5-5.2); Alkaline Phosphatase 82 IU/L (40-130); Anion Gap 19.1 (5-19); Aspartate Amino Transferase 13 U/L (0-40); Blood Urea Nitrogen 26 mg/dL (6-20); Calcium 9.1 mg/dL (8.5-10.5); Carbon Dioxide 28 mmol/L (22-29); Chloride 93 mmol/L (98-107); Globulin 3.1 g/dL (1.3-4.6); Glomerular Filtration Rate 6.3 mL/min (90-130); Glucose 84 mg/dL (65-115); Osmolality Calculated 278 mOsm/kg (285-295); Potassium 4.1 mmol/L (3.5-5.1); Sodium 136 mmol/L (136-145); Total Bilirubin 0.3 mg/dL (0.15-1.2); Total Protein 6.5 g/dL (6.6-8.7)
[2019-10-23 06:41] LABS: Troponin 5 6HR 80.98 ng/L (0-15)
[2019-10-23 07:01] LABS: Troponin 5 6HR Delta 22.98 ng/L (0-12)
[2019-10-23 07:11] LABS: Estmated Average Glucose 80; Hemoglobin A1C 4.4 % (4.0-6.0)
[2019-10-23] MEDS: minoxidil 10 mg Tablet 2.5 MG PO ×2 (08:16→16:59)
[2019-10-23] MEDS: NIFEdipine ER (24 hr) 30 mg Tablet 60 MG PO (08:16)
[2019-10-23] MEDS: lisinopril 20 mg Tablet PO ×2 (08:17→17:00)
[2019-10-23] MEDS: acetaminophen 325 mg Tablet 650 MG PO ×2 (09:35→23:22)
[2019-10-23 10:52] LABS: Hepatitis B Surface Antigen Non-Reactive (Nonreactive)
--- NOTE | 2019-10-23 11:16 | P.PN_ITS ---
Subjective Subjective: Interval history: Admitted overnight. H&P and labs noted. Patient underwent dialysis overnight and was 2 L negative ultrafiltrate. Today morning examination patient is lying comfortably in bed without oxygen and sleeping. He is responding to verbal cues. Denies of having any nausea, vomiting, headache, palpitations. Vitals noted. Medications: Reviewed: Yes Vitals/I&O/Wt Last Vital Signs Temp 98.7 F 10/23/19 08:00 Pulse 109 H 10/23/19 10:00 Resp 18 10/23/19 10:00 BP 168/108 10/23/19 10:00 Pulse Ox 92 10/23/19 10:00 10/22/19 10/23/19 10/23/19 22:59 06:59 14:59 Intake Total 300 / 300 30 / 30 Output Total 275 / 275 Balance 300 / 300 -245 / -245 Weight last 48 hrs Weight 73.391 kg Weight 73.482 kg Physical Exam Const: COMMON NORMALS: no acute distress and patient oriented x3 HENMT: COMMON NORMALS: oropharynx normal Neck/C-Spine: COMMON NORMALS: no JVD Resp: COMMON NORMALS: normal respiratory effort AUSCULTATION: wheezes and diminished lung sounds Cardio: COMMON NORMALS: no JVD, regular rhythm, S1 normal heart sound present, S2 normal heart sound present and No murmurs present (Cardio) RHYTHM: regular rhythm HEART SOUNDS: S1 normal heart sound present and S2 normal heart sound present GI: COMMON NORMALS: Normal to inspection, nondistended, normoactive bowel sounds present, Soft to palpation and non-tender PALPATION: Yes Soft to palpation Extremity: COMMON NORMALS: no joint enlargement GENERAL: Yes edema (trace) Neuro: COMMON NORMALS: patient oriented x3 and moves all extremities Skin: COMMON NORMALS: no rashes or lesions noted GENERAL SKIN EXAM: no rashes or lesions noted Data : 10/23/19 06:12 10/23/19 06:12 A&P Assessment and plan (1) Dyspnea: Progressive shortness of breath, orthopnea for last 7 days. CTA PE done at [facility] negative for PE but concerning for a possible pneumonitis versus congestion pattern. Patient is 2 L negative ultrafiltrate overnight. Overnight COVID-19 was sent. Results awaited. Last checked on September 10 and was negative. Patient has remained afebrile. Saturating 95% on room air while lying down. Overnight started on ceftriaxone and azithromycin. We will continue for now. If patient remains afebrile for next 24 hours can most likely discontinue a ntibiotics. Urine Legionella, bacterial antigen, sputum culture awaited. We will do blood cultures as not done last night. Oxygen supplementation keeping saturation over 92%. As patient is COVID-19 rule out will avoid nebulizations. Can give Spiriva and Advair for now. Status: Acute (2) Pneumonitis: As above. Status: Acute (3) Hypertension: Extremely poorly controlled, resistant hypertension, on multiple medications following with nephrology. Reports his blood pressures not infrequently may be in 300s systolic, 200s diastolic. At present patient is on lisinopril 20 mg twice daily, nifedipine 60 mg, minoxidil 2.5 mg twice daily was added today morning. Blood pressure still on elevated side. As patient has remained tachycardic we will add carvedilol 6.25 mg twice daily. Will uptitrate medications as required. Will not put higher dose right now to avoid reactionary hypotension. Hydralazine 20 mg every 4 hours as needed . Status: Chronic Qualifiers: Hypertension type: secondary to other renal disorders Qualified Code(s): I15.1 - Hypertension secondary to other renal disorders; N28.89 - Other specified disorders of kidney and ureter (4) Hypertensive urgency: Resolved. Target blood pressure 25% of blood pressure on admission. We will try to avoid sudden decrease in blood pressures as well. Status: Acute (5) Pulmonary edema: Most likely because of hypertensive urgency. No echocardiogram on file. Echocardiogram has been requested results awaited. If required patient will get 1 more session of dialysis today. For now patient seems to be at his baseline volume status. Status: Acute Qualifiers: Chronicity: acute Qualified Code(s): J81.0 - Acute pulmonary edema (6) Troponin level elevated: No active chest pain. Troponin delta most likely because of type II CA due to hypertensive urgency. We will continue to monitor for chest pain. A1c and lipid panel results appreciated. Status: Acute (7) Smoking addiction: Discussed for 3 and half minutes. He reports he understands he needs to quit, and has actually been cutting down. Will provide nicotine replacement while in the hospital. Status: Acute (8) End-stage renal disease on hemodialysis: Hemodialysis Thursday. Reports secondary to hypertensive nephropathy. Follows with Dr. Ramsey. Appreciate nephrology assessment. Status: Chronic Additional A&P Information Full code. Heparin 5000 q. 8 hourly for DVT prophylaxis Continue contact isolation/droplet isolation until COVID-19 has been ruled out. Continue ICU care. Attestations Medical Necessity Statement*: Hypertensive urgency, shortness of breath, pulmonary edema, end-stage renal disease on hemodialysis Time Spent in Patient Care: Greater than 35 minutes (>than 50% of time spent in counselling and/or direct pt care on unit) . Coding Level of Care Code Acute Layer Out for [facility] Fwd Diagnoses Dyspnea R06.00 Pneumonitis J18.9 Hypertension I15.1; N28.89 Hypertension type: secondary to other renal disorders Hypertensive urgency I16.0 Pulmonary edema J81.0 Chronicity: acute Troponin level elevated R79.89 Smoking addiction F17.200 End-stage renal disease on hemodialysis N18.6; Z99.2
[2019-10-23] MEDS: carvedilol 6.25 mg Tablet PO ×2 (11:41→17:00)
--- NOTE | 2019-10-23 11:54 | P.PN_ITS ---
Subjective Subjective: Interval history: severe hypertension, pulmonary edema, ESRD unable to visit patient due to COVID19 isolation pending lab result Medications: Reviewed: Yes Vitals/I&O/Wt Last Vital Signs Temp 98.7 F 10/23/19 08:00 Pulse 106 H 10/23/19 11:30 Resp 16 10/23/19 11:30 BP 193/113 10/23/19 11:30 Pulse Ox 95 10/23/19 11:30 10/22/19 10/23/19 10/23/19 22:59 06:59 14:59 Intake Total 300 / 300 30 / 30 Output Total 275 / 275 Balance 300 / 300 -245 / -245 Weight last 48 hrs Weight 73.391 kg Weight 73.482 kg Data : 10/23/19 06:12 10/23/19 06:12 A&P Additional A&P Information Impression: Orthopnea, severe hypertension, ESRD Recommendation: increase lisinopril and minoxidil to BID, fluid restrict, HD 10/24/2019 Attestations Medical Necessity Statement*: per primary service Coding Level of Care Code Acute Industrial Controls Technician for Cristi Diane
[2019-10-23 20:28] LABS: Coronavirus Lab Test PTC SEE COMMENTS
[2019-10-23] MEDS: albuterol 8 gm MDI INHALATION (20:34)
--- NOTE | 2019-10-23 20:40 | PC.NURSE ---
COVID results Lab called with patients pending COVID results. results are negative. notified
[2019-10-24] VITALS (19 sets, daily range): BP systolic 136–178; BP diastolic 87–108; PULSE 87–108; RESP 9–25; TEMP 36.4–36.9; O2SAT 93–97
--- NOTE | 2019-10-24 00:15 | USCV_ITS ---
Mal Gibbs Age: 39 Gender: M : 1980 Exam Date: 10/24/2019 06:33 Ordering Phys: Bob Gonzalez MD Technologist: Grabiel Camacho Exam Location: [facility] [place] Indication: HTN BP: 163 / 100 HR: 100 Rhythm: Sinus Technical Quality: Good MEASUREMENTS (Male / Female) Normal Values 2D ECHO LV Diastolic Diameter PLAX 4.1 cm 4.2 - 5.9 / 3.9 - 5.3 cm LV Systolic Diameter PLAX 3.7 cm IVS Diastolic Thickness 1.3 cm 0.6 - 1.0 / 0.6 - 0.9 cm IVS Systolic Thickness 2.0 cm LVPW Diastolic Thickness 1.0 cm 0.6 - 1.0 / 0.6 - 0.9 cm LVPW Systolic Thickness 1.7 cm LVOT Diameter 2.0 cm LV Ejection Fraction 2D Teich 23.8 % LV Ejection Fraction MOD 2C 66.3 % LV Ejection Fraction 2C AL 65.6 % LA Diameter 4.3 cm LA Width 4.6 cm LA Height 5.4 cm RA Width 4.6 cm RA Height 4.8 cm Aorta at Sinotubular Diameter 2.8 cm M-MODE LV Diastolic Diameter MM 5.7 cm 4.2 - 5.9 / 3.9 - 5.3 cm LV Systolic Diameter MM 3.6 cm LV Ejection Fraction MM Teich 65.7 % IVS Diastolic Thickness MM 1.2 cm 0.6 - 1.0 / 0.6 - 0.9 cm IVS Systolic Thickness MM 1.8 cm LVPW Diastolic Thickness MM 1.3 cm 0.6 - 1.0 / 0.6 - 0.9 cm LVPW Systolic Thickness MM 2.3 cm RV Diastolic Diameter MM 2.2 cm Aortic Annulus Diameter 3.2 cm LA Ao Ratio MM 1.3 MV E Point Septal Separation 1.6 cm DOPPLER AV Peak Velocity 195.0 cm/s LVOT Peak Velocity 150.0 cm/s AV Area Cont Eq vti 3.4 cm squared AV Area Cont Eq pk 2.5 cm squared MV Area PHT 3.9 cm squared Mitral E to A Ratio 3.0 MV E' Velocity 15.0 cm/s Mitral E to MV E' Ratio 9.6 Mitral E to LV E' Lateral Ratio 9.8 Mitral E to LV E' Septal Ratio 9.6 TR Peak Velocity 167.0 cm/s TR Peak Gradient 11.2 mmHg TV Peak E Velocity 141.0 cm/s Right Atrial Pressure 3.0 mmHg Pulmonary Artery Systolic Pressu 14.2 mmHg PV Peak Velocity 146.0 cm/s FINDINGS Left Ventricle Normal left ventricular size and systolic function, EF 65 %. Mild left ventricular hypertrophy. No regional wall motion abnormalities. Right Ventricle The right ventricle is normal in size and function. Right Atrium Mildly increased right atrial size. Left Atrium Mildly increased left atrial size. Mitral Valve Trace mitral valve regurgitation. Aortic Valve Structurally normal aortic valve without significant sclerosis or stenosis. There is no aortic regurgitation. Tricuspid Valve Trace tricuspid valve regurgitation. Pulmonic Valve Mild pulmonary valve regurgitation. Pericardium Normal pericardium without effusion. Aorta Normal aortic annulus size. CONCLUSIONS Normal left ventricular size and systolic function, EF 65 %. Mild left ventricular hypertrophy. No regional wall motion abnormalities. Mild biatrial enlargement Trace of mitral and tricuspid regurgitation There is no pericardial effusion. There are no intracardiac masses. No previous study is available for comparison. Dr Ruba Hussein MD FAC (Electronically Signed) Final Date: 24 October 2019 08:38 S
[2019-10-24] MEDS: cefTRIAXone 1,000 MG in sodium chloride 0.9% (plus) 50 ML 100 MG IV (00:48)
[2019-10-24] MEDS: heparin 5,000 unit/mL INJ 1 mL 5000 UNIT SUBCUT ×2 (00:48→07:55)
[2019-10-24] MEDS: hyDRALAzine 20 mg/mL INJ 1 mL IVP (06:26)
--- NOTE | 2019-10-24 07:41 | PM.PN ---
Subjective Subjective: Interval history: History and physical reviewed. Mal reports a headache currently. Otherwise he is hungry. He reports he may be a little short of breath. Medications: Reviewed: Yes Vitals/I&O/Wt Last Vital Signs Temp 98.5 F 10/24/19 04:00 Pulse 95 10/24/19 04:00 Resp 16 10/24/19 04:00 BP 168/90 10/24/19 04:00 Pulse Ox 94 10/24/19 04:00 10/23/19 10/24/19 10/24/19 22:59 06:59 14:59 Intake Total 360 / 510 222 / 732 Output Total 0 / 275 0 / 275 Balance 360 / 235 222 / 457 Weight last 48 hrs Weight 72.235 kg Weight 73.391 kg Weight 73.482 kg Physical Exam Narrative: EXAM NARRATIVE: Laying flat when I entered the room with adequate oxygen saturation Cardiovascular slight tachycardia, no murmur Lungs clear no wheezing or crackles Abdomen is soft, positive bowel sounds Extremities no cyanosis clubbing or edema Data : 10/23/19 06:12 10/23/19 06:12 Micro: Microbiology 10/23/19 18:30 Blood Culture - Preliminary Blood SPECIMEN COLLECTED 10/23/19 18:30 Blood Culture - Preliminary Blood SPECIMEN COLLECTED 10/22/19 21:17 Bacterial Antigens - Final Urine,Voided 10/22/19 21:17 Legionella Urinary Antigen - Final Urine Kidney A&P Assessment and plan (1) Dyspnea: CTA negative for pulmonary embolism Imaging concerning for pneumonitis. Placed on Rocephin and azithromycin Covid 19 is negative May also be secondary to mild pulmonary congestion from end-stage renal disease on hemodialysis, hypertensive urgency. Ultrafiltrate of 2 L night of October 21 after admission. Blood cultures negative to date No evidence of COPD exacerbation on exam Status: Acute (2) Pneumonitis: As above. Status: Acute (3) Hypertension: Poorly controlled. Continue nifedipine lisinopril minoxidil. Increase carvedilol. Has hydralazine PRN. Nephrology will address as well. Status: Chronic Qualifiers: Hypertension type: secondary to other renal disorders Qualified Code(s): I15.1 - Hypertension secondary to other renal disorders; N28.89 - Other specified disorders of kidney and ureter (4) Hypertensive urgency: Resolved. Medication being adjusted. Status: Acute (5) Pulmonary edema: Most likely because of hypertensive urgency. Awaiting echocardiogram Status: Acute Qualifiers: Chronicity: acute Qualified Code(s): J81.0 - Acute pulmonary edema (6) Troponin level elevated: No active chest pain. No concerning EKG changes. Appears to be type II Status: Acute (7) Smoking addiction: Counseling occurred, 3 to 5 minutes Status: Acute (8) End-stage renal disease on hemodialysis: Receives dialysis Thursday Status: Chronic Additional A&P Information Full code Heparin for DVT prophylaxis Attestations Medical Necessity Statement*: Needs continued hospitalization for further adjustment of medications secondary to hypertensive urgency and possibly providing dialysis today. Coding Level of Care Code Acute Clinical Quality Manager for [facility] Fwd Diagnoses Dyspnea R06.00 Pneumonitis J18.9 Hypertension I15.1; N28.89 Hypertension type: secondary to other renal disorders Hypertensive urgency I16.0 Pulmonary edema J81.0 Chronicity: acute Troponin level elevated R79.89 Smoking addiction F17.200 End-stage renal disease on hemodialysis N18.6; Z99.2
[2019-10-24] MEDS: acetaminophen 325 mg Tablet 650 MG PO (07:55)
[2019-10-24] MEDS: albuterol 8 gm MDI INHALATION (07:59)
--- NOTE | 2019-10-24 08:01 | PC.NURSE ---
ROUNDED WITH DR MARTINEZ. PT SOB, APPEARS TO NOT FEEL WELL. C/O HEADACHE, TYLENOL GIVEN DIALYSIS NURSE CHITO HERE, STATES THAT THIS IS NOT NORMAL FOR PT.
[2019-10-24 09:29] LABS: Basophils % 0.8 %; Eosinophils # 0.2 10^3/uL (0.0-0.8); Eosinophils % 3.3 %; Hematocrit 32.1 % (42.0-52.0); Hemoglobin 10.5 g/dL (11.7-16.6); Lymphocytes # 1.1 10^3/uL (0.8-4.8); Lymphocytes % 21.8 %; Mean Corpuscular HGB Conc 32.7 g/dL (30.0-36.0); Mean Corpuscular Hemoglobin 30.3 pg (28.0-34.0); Mean Corpuscular Volume 92.8 fL (80-94); Monocytes # 0.1 10^3/uL (0.2-0.9); Monocytes % 2.9 %; Neutrophils # 3.4 10^3/uL (1.8-7.7); Neutrophils % 70.8 %; Nucleated Red Blood Cells % 0 %; Platelet Count 213 10^3/cmm (130-400); Red Blood Count 3.46 10^6/uL (4.1-5.3); Red Cell Distribution Width 14.4 % (12.1-15.1); White Blood Count 4.8 10^3/uL (4.0-10.0)
[2019-10-24 09:48] LABS: Alanine Aminotransferase 10 U/L (0-41); Albumin Level 3.4 g/dL (3.5-5.2); Alkaline Phosphatase 77 IU/L (40-130); Anion Gap 20.5 (5-19); Aspartate Amino Transferase 11 U/L (0-40); Blood Urea Nitrogen 38 mg/dL (6-20); Calcium 9.2 mg/dL (8.5-10.5); Carbon Dioxide 26 mmol/L (22-29); Chloride 93 mmol/L (98-107); Globulin 2.5 g/dL (1.3-4.6); Glomerular Filtration Rate 5.6 mL/min (90-130); Glucose 142 mg/dL (65-115); Magnesium 1.9 mg/dL (1.7-2.3); Osmolality Calculated 282 mOsm/kg (285-295); Potassium 3.5 mmol/L (3.5-5.1); Sodium 136 mmol/L (136-145); Thyroid Stimulating Hormone 0.59 uIU/mL (0.27-4.20); Total Bilirubin 0.2 mg/dL (0.15-1.2); Total Protein 5.9 g/dL (6.6-8.7)
--- NOTE | 2019-10-24 12:03 | PC.RESP ---
Smoking Cessation information and a schedule of classes to patient.
[2019-10-24] MEDS: azithromycin 250 mg Tablet 500 MG PO (13:15)
[2019-10-24] MEDS: minoxidil 10 mg Tablet 2.5 MG PO (13:15)
[2019-10-24] MEDS: lisinopril 20 mg Tablet PO (13:16)
[2019-10-24] MEDS: NIFEdipine ER (24 hr) 30 mg Tablet 60 MG PO (13:16)
[2019-10-24] MEDS: carvedilol 12.5 mg Tablet PO (13:16)
--- NOTE | 2019-10-24 16:04 | P.PN_ITS ---
Subjective Subjective: Interval history: HD today with 3 L UF. Dyspnea prior to dialysis now resolved. Medications: Reviewed: Yes Vitals/I&O/Wt Last Vital Signs Temp 97.5 F L 10/24/19 07:53 Pulse 87 10/24/19 14:00 Resp 19 H 10/24/19 14:00 BP 148/94 10/24/19 14:00 Pulse Ox 95 10/24/19 14:00 10/24/19 10/24/19 10/24/19 06:59 14:59 22:59 Intake Total 222 / 732 60 / 60 Output Total 0 / 275 250 / 250 Balance 222 / 457 -190 / -190 Weight last 48 hrs Weight 72.235 kg Weight 73.391 kg Weight 73.482 kg Physical Exam Const: COMMON NORMALS: no acute distress GENERAL APPEARANCE: cooperative Resp: COMMON NORMALS: normal respiratory effort and clear to auscultation bilaterally AUSCULTATION: clear to auscultation bilaterally Cardio: COMMON NORMALS: regular rate RATE: regular rate Extremity: COMMON NORMALS: no clubbing, cyanosis or edema Data : 10/24/19 08:35 10/24/19 08:35 Micro: Microbiology 10/22/19 21:17 Urine Culture - Preliminary Urine,Clean Catch 10/23/19 18:30 Blood Culture - Preliminary Blood SPECIMEN COLLECTED 10/23/19 18:30 Blood Culture - Preliminary Blood SPECIMEN COLLECTED 10/22/19 21:17 Bacterial Antigens - Final Urine,Voided 10/22/19 21:17 Legionella Urinary Antigen - Final Urine Kidney A&P Additional A&P Information Impression: 1. Volume overload - improved 2. severe hypertension - improved 3. ESRD s/p HD today 4. anemia Recommendation: Stable for discharge - return to outpatient dialysis unit. Continue to restrict salt and water. Reduce target weight at dialysis Attestations 2 Medical Necessity Statement*: per primary service Time Spent in Patient Care: 16 - 35 minutes Coding Level of Care Code Acute Grain Elevator Superintendent for Cristi Diane
--- NOTE | 2019-10-24 16:20 | P.DS_ITS ---
Discharge Providers Date of Admission: 10/22/19 21:49 Date of Discharge: October 24, 2019 Attending Provider at Admission: Bob Gonzalez Attending Provider at Discharge: Db Bauman MD Primary Care Provider: Mal Junior Diagnoses at Discharge Discharge Diagnosis (1) Dyspnea: Status: Acute Problem details: Resolved with hemodialysis (2) Pneumonitis: Status: Acute Problem details: To finish 7 days of cefuroxime (3) Hypertension: Status: Chronic Problem details: Improved. Medications adjusted Qualifiers: Hypertension type: secondary to other renal disorders Qualified Code(s): I15.1 - Hypertension secondary to other renal disorders; N28.89 - Other specified disorders of kidney and ureter (4) Hypertensive urgency: Status: Acute Problem details: Resolved (5) Pulmonary edema: Status: Acute Problem details: Resolved Qualifiers: Chronicity: acute Qualified Code(s): J81.0 - Acute pulmonary edema (6) Troponin level elevated: Status: Acute (7) Smoking addiction: Status: Acute (8) End-stage renal disease on hemodialysis: Status: Chronic Reason for Visit Reason for Visit: NEEDS DIALYSIS Hospital Course Hospital Course: Mal is a 39-year-old patient with end-stage renal disease on hemodialysis that presented to the hospital short of breath. There was concern for pneumonia, as well as pulmonary edema. He was ultrafiltrated soon after admission. He received Rocephin and Zithromax for possible pneumonia. Blood pressure medications were adjusted for markedly elevated blood pressures. By October 23 he was doing much better. He received dialysis again and reported he was back to normal with no significant shortness of breath. It was thought he could be discharged home, to finish up a course of cefuroxime. Again, blood pressure medications were adjusted with addition of carvedilol and increase of lisinopril. He will follow-up with his solar sales consultant as well as his primary care provider. Troponin was elevated during hospital stay but patient had no chest pain or EKG changes and this was thought to be a type II elevation. Echocardiogram was performed and demonstrated no wall motion abnormalities, normal EF. He will be visiting with his solar sales consultant regarding his recent hospital stay, to determine how much fluid will need to be removed at subsequent hemodialysis and his compliance with fluid intake. Physical Exam Narrative: EXAM NARRATIVE: See exam from today Discharge Data Data Completed and Pending: Completed Studies During Hospitalization Category Date Time Status CV echo complete* [id number] Routine Ultrasound 10/24/19 00:15 Completed Pending at discharge Category Date Time Status Blood Culture Sta t Lab 10/23/19 18:30 Results Complete Blood Co unt w/Auto AM LABS Lab 10/25/19 04:00 Ordered Comprehensive Met abolic Panel AM LA BS Lab 10/25/19 04:00 Ordered Sputum Culture an d Gram Stain Routi ne Lab 10/23/19 00:15 Uncollected Urine Culture Sta t Lab 10/22/19 21:17 Results Labs from last 24 hours 10/24/19 10/24/19 10/22/19 08:35 08:35 22:55 WBC 4.8 RBC 3.46 L Hgb 10.5 L Hct 32.1 L MCV 92.8 MCH 30.3 MCHC 32.7 RDW 14.4 Plt Count 213 MPV 10.0 Neut % (Auto) 70.8 Lymph % (Auto) 21.8 Dane % (Auto) 2.9 Eos % (Auto) 3.3 Baso % (Auto) 0.8 Neut # (Auto) 3.4 Lymph # (Auto) 1.1 Dane # (Auto) 0.1 L Eos # (Auto) 0.2 Baso # (Auto) 0.0 Nucleated RBC % (a uto) 0 Nucleated RBCs # 0.0 Sodium 136 Potassium 3.5 Chloride 93 L Carbon Dioxide 26 Anion Gap 20.5 H BUN 38 H Creatinine 10.5 H* GFR Calculation 5.6 L Glucose 142 H Calculated Osmolal ity 282 L Calcium 9.2 Phosphorus 6.0 H Magnesium 1.9 Total Bilirubin 0.2 AST 11 ALT 10 Alkaline Phosphata se 77 Total Protein 5.9 L Albumin 3.4 L Globulin 2.5 TSH 0.59 Nasal/Oral COVID-1 9 PCR See comments Vitals: Last Vital Signs Temp 97.5 F L 10/24/19 07:53 Pulse 87 10/24/19 14:00 Resp 19 H 10/24/19 14:00 BP 148/94 10/24/19 14:00 Pulse Ox 95 10/24/19 14:00 Discharge Plan Discharge Patient Disposition: Home, Self-Care Condition: Stable Prescriptions: New carvedilol 12.5 mg Tablet 12.5 mg PO BID Qty: 60 RF: 0 cefuroxime axetil 500 mg tablet 500 mg PO BID 7 Days Qty: 14 RF: 0 lisinopril 20 mg Tablet 20 mg PO BID Qty: 60 RF: 0 Continued clonidine HCl 0.1 mg tablet 0.1 mg PO PRN PRN (Reason: Blood Pressure) RF: 0 minoxidil 2.5 mg tablet 2.5 mg PO DAILY RF: 0 nifedipine 60 mg tablet extended release 60 mg PO DAILY RF: 0 albuterol sulfate 90 mcg/actuation HFA aerosol inhaler 1 - 2 puff INHALATION Q6H PRN (Reason: DIFFICULTY BREATHING) Qty: 18 RF: 0 Discontinued lisinopril 20 mg tablet 20 mg PO DAILY RF: 0 Discharge Orders: Discharge Order (Routine); Ordered 10/24/19 Ordered By: Db Bauman Referrals: Mal Junior [Primary Care Provider] - 4-7 days Discharge Diet: Cardiac Discharge Activity: Increase activity as tolerated Activity Restrictions/Additional Instructions: Follow-up with primary care provider 3 to 5 days Follow-up with nephrology for his dialysis on Thursday. Discharge Attestations Time Spent in Discharge Care*: greater than 30 min Quality Metrics Clinical Quality Measures During this hospital stay, did patient experience: None Coding Level of Care Code Acute Rn Internal Medicine for g Fwd Diagnoses Dyspnea R06.00 Pneumonitis J18.9 Hypertension I15.1; N28.89 Hypertension type: secondary to other renal disorders Hypertensive urgency I16.0 Pulmonary edema J81.0 Chronicity: acute Troponin level elevated R79.89 Smoking addiction F17.200 End-stage renal disease on hemodialysis N18.6; Z99.2
--- NOTE | 2019-10-24 19:00 | PC.NURSE ---
1809- REVIEWED DISCHARGE INSTRUCTIONS WITH PT. VERBALIZED UNDERSTANDING. RESP INHALERS GIVEN TO PT, HE STATED THAT THEY DID MAKE A BIG DIFFERENCE. [facility] DELIVERED NEW MEDICATIONS TO HIS ROOM. HIS MOM WAS GOING TO PICK HIM UP, AMBULATED TO EMERGENCY ROOM WITH THIS NURSE. TOLERATED WELL. WISHED HIM GOOD LUCK. PERSONAL BELONGINGS WITH PT.
== END 2019-10-24 18:10 | disposition home or self-care (01) | DRG 193 ==
LOC: ER 21:07 → ICU 22:46
PROVIDERS: Emergency Medicine; Internal Medicine; Admitting Provider Internal Medicine; PCP Family Medicine; Visit Provider Internal Medicine
DX: J18.9 Pneumonia, unspecified organism (principal); J81.0 Acute pulmonary edema; N18.6 End stage renal disease; I12.0 Hypertensive chronic kidney disease with stage 5 chronic kidney disease or end stage renal disease; J44.1 Chronic obstructive pulmonary disease with (acute) exacerbation; J44.0 Chronic obstructive pulmonary disease with (acute) lower respiratory infection; I16.0 Hypertensive urgency; Z99.2 Dependence on renal dialysis; F17.210 Nicotine dependence, cigarettes, uncomplicated
CPT/HCPCS: 12345; 36415; 80053; 80061; 80306; 81001; 83036; 83735; 84100; 84443; 84484; 85025; 86403; 87040; 87086; 87340; 87449; 87635; 90935; 93005; 93306; 94640; 94664; 96372; 96374; 96375; 96376; 99284; 99285; J0360; J0456; J0696; J1644; J2405; J7050; Q0144; Q3014

== ENCOUNTER 2019-10-22 20:48 | Emergency (ER) | payer MEDICARE, MEDICAID, SELFPAY | END 2019-10-23 00:14 | disposition admitted as inpatient to this hospital (09) | LOC: ER 10-23 04:42 | PROVIDERS: Emergency Provider Emergency Medicine; PCP Family Medicine | DX: I12.0 Hypertensive chronic kidney disease with stage 5 chronic kidney disease or end stage renal disease (principal); N18.6 End stage renal disease; Z99.2 Dependence on renal dialysis; J81.0 Acute pulmonary edema; F17.210 Nicotine dependence, cigarettes, uncomplicated | CPT/HCPCS: 80306; 86403; 87086; 87449; 96374; 96375; 96376; 99284; 99285; J0360; Q3014 ==

== ENCOUNTER 2019-12-01 12:23 | Outpatient (CLI) | payer MEDICARE, MEDICAID, SELFPAY ==
--- NOTE | 2019-12-01 12:36 | CT_ITS ---
WS: [id number] CT ABDOMEN AND PELVIS NONCONTRAST HISTORY: HEMATURIA TECHNIQUE: Imaging performed through the abdomen and pelvis. Coronal and sagittal reformats are submi tted. All CT scans at [facility] use at least one of these dose optimization techniques: automated exposure control; mA and/or kV adjustment per patient size (includes targeted exams where d ose is matched to clinical indication); or iterative reconstruction. DLP: 1152.75 mGycm COMPARISON: 08/01/2018 Lower thorax: New small RIGHT pleural effusion. At the RIGHT lung base. Increased opacification and m ild groundglass attenuation. At the posterior LEFT lung base there is also some mild groundglass atte nuation. Liver: Marked hepatomegaly. Liver extends over length of at least 21 cm. Bile ducts are normal size. There is a small amount of fluid adjacent to the RIGHT lobe of the liver inferiorly. Gallbladder: Unremarkable. Pancreas: Normal. Spleen: 13.0 cm in length. Mild splenomegaly. Adrenal glands: Normal. Right kidney: Moderate atrophy of the RIGHT kidney. RIGHT kidney measures 7.7 cm in length with mild diffuse cortical thinning. There is a small amount of perinephric stranding. No obstruction. Left kidney: Small atrophied kidney with no obstruction. Kidney measures 7.7 cm in length. Mild atherosclerosis distal aorta. No lymph nodes are identified on this unenhanced study. Lack of fat makes evaluation for lymph nodes difficult. There are a few small, subcentimeter retroperitoneal lymph nodes measuring 7 to 8 mm. GI tract: The appendix is identified and contains increased density which may be calcification. No ad jacent inflammation. Mild constipation. No obstruction. Abdominal wall: Mild diffuse anasarca. Pelvis: Normally distended urinary bladder. No free fluid. Bilateral inguinal lymph nodes. Largest ly mph node measures 12 mm on the RIGHT and maintains an ovoid shaped. Loss of the normal fatty moiz. Osseous structures: Grade 1 anterolisthesis of L5 due to bilateral pars defects. 9 mm [address] of L5. CT/CT abdomen pelvis wo con [id number] IMPRESSION: 1. Moderate bilateral renal atrophy with no obstruction. Atrophy has progresse d since 08/01/2018. 2. Marked hepatomegaly and mild splenomegaly. New since 08/01/2018. 3. Small, new RIGHT pleural effusion with bibasilar groundglass attenuation wh ich is probably pneumonitis. 4. Small amount of fluid around the RIGHT lobe of the liver and around the sup erior pole RIGHT kidney. 5. Bilateral inguinal lymph nodes with the largest measuring 12 mm on the RIGH T. May be reactive. Increase in size since 08/01/2018.
== END 2019-12-01 12:24 | disposition home or self-care (01) ==
PROVIDERS: PCP Family Medicine; Visit Provider Internal Medicine Nephrology
DX: R31.9 Hematuria, unspecified (principal); N26.1 Atrophy of kidney (terminal); R16.0 Hepatomegaly, not elsewhere classified; R16.1 Splenomegaly, not elsewhere classified; J90 Pleural effusion, not elsewhere classified; R59.9 Enlarged lymph nodes, unspecified
CPT/HCPCS: 74176

== ENCOUNTER → 2019-12-26 09:28 | Outpatient (BNVA) | payer MEDICARE, MEDICAID, SELFPAY | PROVIDERS: PCP Family Medicine; Visit Provider Nurse Practitioner Family | DX: N18.6 End stage renal disease (principal); Z99.2 Dependence on renal dialysis; I15.1 Hypertension secondary to other renal disorders; N28.89 Other specified disorders of kidney and ureter; F17.200 Nicotine dependence, unspecified, uncomplicated; F41.9 Anxiety disorder, unspecified; F32.9 Major depressive disorder, single episode, unspecified; M79.89 Other specified soft tissue disorders; R06.02 Shortness of breath; M54.5 Low back pain | CPT/HCPCS: 80053; 80061; 84443; 85025 ==

== ENCOUNTER 2020-01-12 14:54 | Outpatient (CLI) | payer MEDICARE, MEDICAID, SELFPAY ==
--- NOTE | 2020-01-12 15:45 | XR_ITS ---
WS: [id number] Lumbar spine, 3 views, 01/12/2020 Clinical Data: low back pain Comparison: None. Findings: No compression fractures are seen. Degenerative disc narrowing at L5-S1 is noted. There is a subluxat ion of L5 on S1 of 1.2 cm. Bilateral spondylolysis is present. Minimal osteoarthritic change of the a nterior aspect of the L4 and L5 vertebral bodies is noted. The transverse processes and SI joints are normal. The liver is enlarged. XR/XR lumbar spine 2-3V* [id number] Impression: 1. Degenerative disc narrowing at L5-S1. 2. Anterior subluxation with bilateral spondylolysis at L5-S1. 3. Mild osteoarthritic spurring at L4 and L5. 4. Hepatomegaly.
--- NOTE | 2020-01-12 15:45 | XR_ITS ---
WS: [id number] Chest 2 views, 01/12/2020 Clinical Data: SOB Comparison: Portable chest, 09/11/2019. Findings: No nodules, masses or effusions are seen. The heart is enlarged. The pulmonary vascularity is not increased. No pneumonia or pneumothorax is seen. The diaphragms are flattened. XR/XR chest 2V* [id number] Impression: Cardiomegaly and hyperinflation.
== END 2020-01-12 14:55 | disposition home or self-care (01) ==
LOC: RAD 14:57
PROVIDERS: PCP Family Medicine; Visit Provider Nurse Practitioner Family
DX: M54.5 Low back pain (principal); R06.02 Shortness of breath; R16.0 Hepatomegaly, not elsewhere classified; M47.817 Spondylosis without myelopathy or radiculopathy, lumbosacral region; I51.7 Cardiomegaly
CPT/HCPCS: 71046; 72100

== ENCOUNTER 2020-04-13 10:32 | Inpatient (IN) | payer MEDICARE, MEDICAID, SELFPAY ==
[2020-04-13] VITALS (9 sets, daily range): BP systolic 148–198; BP diastolic 88–110; PULSE 59–88; RESP 18–21; TEMP 36.9; O2SAT 85–99; BMI 24.4
--- NOTE | 2020-04-13 11:17 | CT_ITS ---
WS: [id number] CT ABDOMEN AND PELVIS WITH CONTRAST HISTORY: abdominal pain TECHNIQUE: Imaging performed of the abdomen and pelvis with IV contrast. Single phase imaging of the abdomen. Coronal and sagittal reformats are submitted. All CT scans at [facility] use at least one of these dose optimization techniques: automated exposure control; mA and/or kV adjustment per patient size (includes targeted exams where dose is matched to clinical indication); or iterativ e reconstruction. IV CONTRAST: Visipaque 320; 95 mL IV. Oral contrast: No DLP: 881.39 mGy.cm COMPARISON: 12/01/2019 Lower thorax: Small bilateral pleural effusions have increased in size. Mild groundglass attenuation at the lung bases. Heart is moderately enlarged. There is a small pericardial effusion. No hiatal her domenica. Liver/biliary system: Liver is enlarged and heterogeneous. Marked decreased attenuation throughout th e liver suspect hepatic congestion. Gallbladder: Normal. No gallstones or wall thickening. No pericholecystic fluid. Pancreas: Normal. Spleen: Slightly enlarged at 14 cm in length. Adrenal glands: Normal. Right kidney: Severe atrophy, unchanged. No hydronephrosis. Left kidney: Severe atrophy, unchanged. No hydronephrosis. Aorta: Mild atherosclerosis with no aneurysm. Lymphadenopathy: None. Free fluid: There is a small amount of ascites throughout the peritoneal cavity. There is marked mese nteric edema. Marked anasarca. GI tract: No obstruction. Mildly distended fluid-filled small bowel loops. Abdominal wall: Diffuse marked anasarca. Pelvis: Small amount of free fluid in the pelvis. The urinary bladder is minimally distended. Bones: L5 anterolisthesis by 4.9 mm. Bilateral pars defects. CT/CT abdomen pelvis w con* [id number] IMPRESSION: 1. Diffuse severe development of anasarca and a small amount of ascites with m esenteric edema. 2. Mild but increasing bilateral pleural effusions. 3. Small pericardial effusion. 4. No GI tract obstruction. There is mild fluid-filled distal loops of small b owel but at this time no obstruction.
--- NOTE | 2020-04-13 11:18 | ED_ITS ---
HPI - Abdominal Pain General: Chief Complaint: Nausea/Vomiting/Diarrhea Stated Complaint: ABD PAIN/PCP STATED POSS BOWEL OBSTRUCTION Time Seen by Provider: 04/13/20 11:10 History of Present Illness: HPI narrative: This patient is a 39 year old on ESRD presenting with abdominal pain and distension for the past 3 - 4 weeks. He was sent from dialysis today due to the abdominal pain with concerns for a bowel obstruction. He last got dialysis on Thursday - Thursday he was in the ED at [place] with abdominal pain and so missed dialysis and he didn't get it today because he was sent here. He says that [place] ED didn't do anything other than blood work. He has not had a bowel movement in 3 weeks. He is not a very good historian due to being in severe pain. He does not make any urine. He has a history of hypertension and apparently that is the cause of his renal failure. MD elicited complaint: abdominal pain Pertinent past history: constipation and other (ESRD) Onset (ago): week(s) (4) Pain Consistency: constant Location: Diffuse Severity: severe Quality: stabbing and aching Radiation: none Migration to: no migration Exacerbating factors: nothing Relieving factors: nothing Associated Symptoms: Reports constipation and vomiting; Denies chills and fever(s) Review of Systems General: Reports: 10 or more systems reviewed and unremarkable except in HPI and below Const: Reports: fatigue and malaise; Denies: fever(s) or chills Eyes: Denies: change in vision ENMT: Denies: odynophagia Card: Reports: swelling of feet/ankles; Denies: chest pain Resp: Reports: dyspnea; Denies: productive cough or non-productive cough GI: Reports: abdominal pain, vomiting and constipation : Denies: flank pain Musc: Denies: neck pain or back pain Skin/Breast: Denies: rash Neuro: Denies: headache(s), numbness in extremities or weakness in extremities Jefferson/Lymph: Denies: easy bruising or easy bleeding [facility] ED PFSH: Medical History Anxiety with depression Arteriovenous fistula for hemodialysis in place, secondary COPD (chronic obstructive pulmonary disease) Current smoker Degenerative disc disease, lumbar End-stage renal disease on hemodialysis Hepatomegaly Hypertension Surgical History H/O hand surgery Amputation right 2&3 fingers 2017 History of adenoidectomy Family History Other Hypertension Denies family history of Diabetes Chronic kidney disease (CKD) Lung disease Cancer Stroke Social History Smoking and tobacco status: current every day smoker Second hand smoke exposure: Yes Smoking risk assessment/counseling performed?: Yes Alcohol intake: never Desire information about alcohol rehabilitation?: No Counseling given: No Desire information about substance/drug rehabilitation?: No Counseling given: No Adopted: No Caregiver/support person: No Lives independently: Yes Household members: spouse and family Housing: House Marital status: Number of children: 3 service: No Current occupational status: disabled Pets and animals: Yes Pets & animals: cat(s) and dog(s) History of recent travel: No Current gender identity: Male Physical Exam Const: COMMON NORMALS: patient oriented x3 and alert EXAM LIMITATIONS: other limitations (pain) GENERAL APPEARANCE: cooperative, in distress, ill appearing and other (poor skin tone) ORIENTATION/CONSCIOUSNESS: Yes awake HENMT: HEAD & SCALP: normal to inspection FACE & SINUS: normal facial exam Eye: GENERAL EYE: appearance normal, both eyes and all related structures Neck/C-Spine: COMMON NORMALS: supple, no meningeal signs and no JVD Chest: COMMONS NORMALS: normal inspection of the chest Resp: COMMON NORMALS: normal respiratory effort, No use of accessory muscles and clear to auscultation bilaterally AUSCULTATION: clear to auscultation bilaterally Cardio: COMMON NORMALS: no JVD, regular rate, regular rhythm and No murmurs present (Cardio) RATE: regular rate RHYTHM: regular rhythm GI: INSPECTION: Yes abdominal distension AUSCULTATION: Yes Hypoactive bowel sounds present PALPATION: Yes Firmness to palpation present (GI) and Yes Tenderness to palpation present (GI) PERCUSSION: tympanic to percussion Back/Pelvis: COMMON NORMALS: thoracic and lumbar spine normal to inspection Extremity: GENERAL: Yes edema (3) Neuro: COMMON NORMALS: patient oriented x3, moves all extremities, no focal motor deficits and no sensory deficits noted SENSORIUM/ORIENTATION: Yes alert MENINGEAL SIGNS: Yes no meningeal signs Psych: COMMON NORMALS: mental status grossly normal, cooperative and normal affect Skin: COMMON NORMALS: no rashes or lesions noted and turgor normal GENERAL SKIN EXAM: no rashes or lesions noted and turgor normal Course ED course: Patient with a tender and distended abdomen - vomiting and no BM. CT does not show an obstruction but ascites and edema of the mesentary. He is overdue for dialysis and will be admitted here for further evaluation of his abdominal pain as well as dialysis. Vital Signs: Vital signs: Vital Signs Temperature 98.4 F 04/13/20 11:02 Pulse Rate 78 04/13/20 13:07 Respiratory Rate 18 04/13/20 13:07 Blood Pressure 158/100 04/13/20 13:07 Pulse Oximetry 98 04/13/20 13:07 MDM - Abdominal Pain Lab Data: Labs: Lab Results 04/13/20 04/13/20 04/13/20 Range/Units 11:50 11:50 11:50 WBC 5.5 (4.0-10.0) 10^3/ uL RBC 2.88 L (4.1-5.3) 10^6/u L Hgb 8.6 L (11.7-16.6) g/dL Hct 27.2 L (42.0-52.0) % MCV 94.4 H (80-94) fL MCH 29.9 (28.0-34.0) pg MCHC 31.6 (30.0-36.0) g/dL RDW 18.6 H (12.1-15.1) % Plt Count 173 (130-400) 10^3/c mm MPV 9.4 (7.4-10.4) fL Neut % (Auto) 74.4 % Lymph % (Auto) 11.9 % [place] % (Auto) 7.1 % Eos % (Auto) 5.5 % Baso % (Auto) 0.9 % Neut # (Auto) 4.07 (1.8-7.7) 10^3/u L Lymph # (Auto) 0.7 L (0.8-4.8) 10^3/u L [place] # (Auto) 0.4 (0.2-0.9) 10^3/u L Eos # (Auto) 0.3 (0.0-0.8) 10^3/u L Baso # (Auto) 0.1 (0.0-0.1) 10^3/u L Nucleated RBC % (a uto) 0 % Nucleated RBCs # 0.0 /100WBC Sodium 133 L (136-145) mmol/L Potassium 6.1 H (3.5-5.1) mmol/L Chloride 93 L (98-107) mmol/L Carbon Dioxide 30 H (22-29) mmol/L Anion Gap 16.1 (5-19) BUN 49 H (6-20) mg/dL Creatinine 10.4 H* (0.7-1.2) mg/dL GFR Calculation 5.6 L (90-130) mL/min Glucose 89 (65-115) mg/dL Calculated Osmolal ity 288 (285-295) mOsm/k g Lactic Acid 0.6 (0.5-2.2) mmol/L Calcium 9.0 (8.5-10.5) mg/dL Total Bilirubin 0.5 (0.15-1.2) mg/dL AST 9 (0-40) U/L ALT 8 (0-41) U/L Alkaline Phosphata se 117 (40-130) IU/L Total Protein 7.0 (6.6-8.7) g/dL Albumin 3.3 L (3.5-5.2) g/dL Globulin 3.7 (1.3-4.6) g/dL Lipase 19 (13-60) U/L Discharge Plan Discharge Admit Provider: Tiarra Villegas Coding Level of Care Code 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
[2020-04-13] MEDS: ondansetron 2 mg/ML SDV 2 mL 4 MG IVP (11:56)
[2020-04-13] MEDS: morphine 4 mg/mL SDV 1 mL IVP (11:56)
[2020-04-13 12:01] LABS: Basophils # 0.1 10^3/uL (0.0-0.1); Basophils % 0.9 %; Eosinophils # 0.3 10^3/uL (0.0-0.8); Eosinophils % 5.5 %; Hematocrit 27.2 % (42.0-52.0); Hemoglobin 8.6 g/dL (11.7-16.6); Lymphocytes # 0.7 10^3/uL (0.8-4.8); Lymphocytes % 11.9 %; Mean Corpuscular HGB Conc 31.6 g/dL (30.0-36.0); Mean Corpuscular Hemoglobin 29.9 pg (28.0-34.0); Mean Corpuscular Volume 94.4 fL (80-94); Mean Platelet Volume 9.4 fL (7.4-10.4); Monocytes # 0.4 10^3/uL (0.2-0.9); Monocytes % 7.1 %; Neutrophils # 4.07 10^3/uL (1.8-7.7); Neutrophils % 74.4 %; Nucleated Red Blood Cells % 0 %; Platelet Count 173 10^3/cmm (130-400); Red Blood Count 2.88 10^6/uL (4.1-5.3); Red Cell Distribution Width 18.6 % (12.1-15.1); White Blood Count 5.5 10^3/uL (4.0-10.0)
[2020-04-13] MEDS: iodixanol 320 mg/mL 100mL Btl IV (12:21)
[2020-04-13 12:22] LABS: Lactic Sepsis W/Reflex 0.6 mmol/L (0.5-2.2)
[2020-04-13 12:23] LABS: Alanine Aminotransferase 8 U/L (0-41); Albumin Level 3.3 g/dL (3.5-5.2); Alkaline Phosphatase 117 IU/L (40-130); Anion Gap 16.1 (5-19); Aspartate Amino Transferase 9 U/L (0-40); Blood Urea Nitrogen 49 mg/dL (6-20); Carbon Dioxide 30 mmol/L (22-29); Chloride 93 mmol/L (98-107); Globulin 3.7 g/dL (1.3-4.6); Glomerular Filtration Rate 5.6 mL/min (90-130); Glucose 89 mg/dL (65-115); Lipase 19 U/L (13-60); Osmolality Calculated 288 mOsm/kg (285-295); Potassium 6.1 mmol/L (3.5-5.1); Sodium 133 mmol/L (136-145); Total Bilirubin 0.5 mg/dL (0.15-1.2)
--- NOTE | 2020-04-13 14:19 | P.HP_ITS ---
Providers/Chief Complaint Admitting Physician: Tiarra Villegas MD Primary Care Provider: Mal Junior Chief Complaint: ABD PAIN/PCP STATED POSS BOWEL OBSTRUCTION History of Present Illness Mal Gibbs is a 39 year old male with past medical history of hypertension and end-stage renal disease for which he undergoes maintenance hemodialysis on Thursday and Thursday as an outpatient. He reports having missed his last session 2 days ago as he was at [facility] ER for abdominal pain and nausea. He still c/o abdominal pain and increasing distension over this period along with mutlipel episodes of vomiting. CT abdomen performed in the ER withotu any acute events, however shows increased ascites. He is due for HD today. Hb today is at 8.6, baseline ~9-10, K 6.1, cr 10.4 (CKD) Review of Systems General: Reports: 10 or more systems reviewed and unremarkable except in HPI and below Const: Denies: fever(s), chills or body aches Eyes: Denies: change in vision, blurry vision or photophobia ENMT: Reports: hoarseness; Denies: throat pain, enlarged tonsils, odynophagia or nasal congestion Card: Denies: chest pain, palpitations, irregular heart rhythm, edema, swelling of feet/ankles, lightheadedness, pre-syncope, dyspnea on exertion or orthopnea Resp: Denies: dyspnea, productive cough, non-productive cough, wheezing, stridor, pain on inspiration, change in phlegm color, hemoptysis or chest congestion GI: Denies: abdominal pain, nausea, vomiting, hematemesis, coffee ground emesis, dysphagia, heartburn, diarrhea, constipation, GI cramping, change in stool character, hematochezia or melena : Denies: flank pain, dysuria, urinary frequency, urinary urgency, urinary hesitancy or hematuria Musc: Denies: neck pain, back pain, extremity pain, joint swelling, joint warmth or deformity Skin/Breast: Denies: rash Neuro: Denies: headache(s), numbness in extremities, weakness in extremities, sensory changes, difficulty walking, frequent falls, dizziness, vertigo, behavioral changes, Slurred speech present or seizure-like activity Psych: Denies: anxiety, depression, suicidal ideation or homicidal ideation Endo: Denies: polyuria, polydipsia, tired all the time, cold intolerance or hot flashes Jefferson/Lymph: Denies: easy bruising or easy bleeding All/Imm: Denies: acute wheezing Medications/Allergies Home Medications Medication Instructions Recorded Confirmed Last Taken Type clonidine HCl 0.1 mg tablet 0.1 mg PO BID PRN 30 Days #60 tab 12/26/19 04/13/20 Unknown Rx calcium acetate 667 mg tablet See Rx Instructions .ROUTE 01/24/20 04/13/20 04/12/20 History .COMPLEX tab carvedilol 25 mg tablet 12.5 mg PO Q12H tab 01/24/20 04/13/20 04/13/20 History levalbuterol tartrate 45 2 inh INHALATION Q6H PRN #15 gm 01/24/20 04/13/20 Unknown Rx mcg/actuation aerosol inhaler minoxidil 2.5 mg tablet 10 mg PO BID@ tab 01/24/20 04/13/20 04/13/20 History spironolactone 25 mg tablet 25 mg PO DAILY@ tab 01/24/20 04/13/20 04/13/20 History umeclidinium 62.5 mcg/actuation 1 inh INHALATION Q24H #30 each 02/02/20 04/13/20 Unknown Rx blister powder for inhalation Lexapro 10 mg PO DAILY@199904/13/20 04/13/20 04/12/20 History docusate sodium 200 mg PO BID@04/13/20 04/13/20 04/12/20 History lisinopril 20 mg PO BID@04/13/20 04/13/20 04/13/20 History terazosin 2 mg PO BEDTIME@04/13/20 04/13/20 04/12/20 History trazodone 50 mg PO BEDTIME@04/13/20 04/13/20 04/12/20 History Allergies Allergy/AdvReac Type Severity Reaction Status Date / Time No Known Allergies Allergy Verified 09/11/19 08:55 PFSH Acute PFSH: Medical History Anxiety with depression Arteriovenous fistula for hemodialysis in place, secondary COPD (chronic obstructive pulmonary disease) Current smoker Degenerative disc disease, lumbar End-stage renal disease on hemodialysis Hepatomegaly Hypertension Surgical History H/O hand surgery Amputation right 2&3 fingers 2017 History of adenoidectomy Family History Other Hypertension Denies family history of Diabetes Chronic kidney disease (CKD) Lung disease Cancer Stroke Social History Smoking and tobacco status: current every day smoker Second hand smoke exposure: Yes Smoking risk assessment/counseling performed?: Yes Alcohol intake: never Desire information about alcohol rehabilitation?: No Counseling given: No Desire information about substance/drug rehabilitation?: No Counseling given: No Adopted: No Caregiver/support person: No Lives independently: Yes Household members: spouse and family Housing: House Marital status: Number of children: 3 service: No Current occupational status: disabled Pets and animals: Yes Pets & animals: cat(s) and dog(s) History of recent travel: No Current gender identity: Male Vitals/I&O/Wt Last Vital Signs Temp 98.4 F 04/13/20 11:02 Pulse 88 04/13/20 14:00 Resp 19 H 04/13/20 14:00 BP 148/88 04/13/20 14:00 Pulse Ox 98 04/13/20 14:00 Weight last 48 hrs Weight 81.647 kg Physical Exam Narrative: EXAM NARRATIVE: GEN: Awake, alert, chronically ill appearing man in no acute distress CVS: S1S2 N RS: B/L crackles to auscultation Abd: Soft, distended, discomfort to palpation 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 Data : 04/13/20 11:50 04/13/20 11:50 A&P Assessment and plan (1) Intractable nausea and vomiting: Symptoatic managemenet with prn zofran and compazine alternating may be related to uremia from missed dialysis vs mesenteric edema as noted on CT CT abdomen without acute events , anasarca noted check covid 19 ag to evalute for viral gastroenteritis Status: Acute (2) Abdominal pain: Status: Acute (3) COPD (chronic obstructive pulmonary disease): not currently excarebated duonebs q4h prn Status: Chronic (4) Anxiety with depression: Status: Acute (5) End-stage renal disease on hemodialysis: Renal consulted for HD today, hyperkalemia on labs, expect to resolve with HD Status: Chronic Attestations Medical Necessity Statement*: inpatient admission for HD, hyperkalemia and intractable nausea and vomiting Coding Level of Care Code Acute Oliving Machine Operator for Chg Fwd Diagnoses Intractable nausea and vomiting R11.2 Abdominal pain R10.9 COPD (chronic obstructive pulmonary disease) J44.9 Anxiety with depression F41.8 End-stage renal disease on hemodialysis N18.6; Z99.2
--- NOTE | 2020-04-13 14:25 | XR_ITS ---
WS: [id number] PORTABLE CHEST HISTORY: dyspnea COMPARISON: 01/12/2020 Mild interstitial edema. No pneumonia. Tiny LEFT pleural effusion is suspected. Cardiac size: Mildly enlarged cardiac silhouette. Mediastinum/Aorta: Normal mediastinum. No osseous abnormality seen. XR/XR chest 1V portable [id number] IMPRESSION: Mild interstitial edema. Cardiac silhouette is also slightly increased in size.
--- NOTE | 2020-04-13 15:00 | P.CONIM_ITS ---
Providers/Reason For Consult Consulting Physican/Specialty*: Imani Seo DO, telenephrology Reason for Consult*: ESRD, hyperkalemia Attending Physician: Tiarra Villegas MD Primary Care Provider: Mal Junior History of Present Illness History of Present Illness Mal Gibbs is a 39 year old male presenting to ER for evaluation of abdominal pain. Has not had bowel movement in > 1 week. Has taken many different laxatives. Denies vomiting. Missed HD 04/11 - was seen at another hospital that day Meds/Allergies Home Medications and Allergies Home Medications Medication Instructions Recorded Confirmed Last Taken Type clonidine HCl 0.1 mg tablet 0.1 mg PO BID PRN 30 Days #60 tab 12/26/19 04/13/20 Unknown Rx calcium acetate 667 mg tablet See Rx Instructions .ROUTE 01/24/20 04/13/20 04/12/20 History .COMPLEX tab carvedilol 25 mg tablet 12.5 mg PO Q12H tab 01/24/20 04/13/20 04/13/20 History levalbuterol tartrate 45 2 inh INHALATION Q6H PRN #15 gm 01/24/20 04/13/20 Unknown Rx mcg/actuation aerosol inhaler minoxidil 2.5 mg tablet 10 mg PO BID@ tab 01/24/20 04/13/20 04/13/20 History spironolactone 25 mg tablet 25 mg PO DAILY@ tab 01/24/20 04/13/20 04/13/20 History umeclidinium 62.5 mcg/actuation 1 inh INHALATION Q24H #30 each 02/02/20 04/13/20 Unknown Rx blister powder for inhalation Lexapro 10 mg PO DAILY@199904/13/20 04/13/20 04/12/20 History docusate sodium 200 mg PO BID@04/13/20 04/13/20 04/12/20 History lisinopril 20 mg PO BID@04/13/20 04/13/20 04/13/20 History terazosin 2 mg PO BEDTIME@04/13/20 04/13/20 04/12/20 History trazodone 50 mg PO BEDTIME@04/13/20 04/13/20 04/12/20 History Allergies Allergy/AdvReac Type Severity Reaction Status Date / Time No Known Allergies Allergy Verified 09/11/19 08:55 PFSH Acute PFSH: Medical History Anxiety with depression Arteriovenous fistula for hemodialysis in place, secondary COPD (chronic obstructive pulmonary disease) Current smoker Degenerative disc disease, lumbar End-stage renal disease on hemodialysis Hepatomegaly Hypertension Surgical History H/O hand surgery Amputation right 2&3 fingers 2017 History of adenoidectomy Family History Other Hypertension Denies family history of Diabetes Chronic kidney disease (CKD) Lung disease Cancer Stroke Social History Smoking and tobacco status: current every day smoker Second hand smoke exposure: Yes Smoking risk assessment/counseling performed?: Yes Alcohol intake: never Desire information about alcohol rehabilitation?: No Counseling given: No Desire information about substance/drug rehabilitation?: No Counseling given: No Adopted: No Caregiver/support person: No Lives independently: Yes Household members: spouse and family Housing: House Marital status: Number of children: 3 service: No Current occupational status: disabled Pets and animals: Yes Pets & animals: cat(s) and dog(s) History of recent travel: No Current gender identity: Male Vitals/I&O/Wt Last Vital Signs Temp 98.4 F 04/13/20 11:02 Pulse 88 04/13/20 14:22 Resp 19 H 04/13/20 14:22 BP 148/88 04/13/20 14:22 Pulse Ox 98 04/13/20 14:22 Weight last 48 hrs Weight 81.647 kg Physical Exam Extremity: NARRATIVE EXTREMITY EXAM: left forearm AVF no signs of infection GENERAL: Yes edema Data Imaging^: CT Abd/Pel: Radiologist's impression: 1. Diffuse severe development of anasarca and a small amount of ascites with mesenteric edema. 2. Mild but increasing bilateral pleural effusions. 3. Small pericardial effusion. 4. No GI tract obstruction. There is mild fluid-filled distal loops of small bowel but at this time no obstruction. A&P Additional A&P Information Impression: 1. ESRD, volume overload, hyperkalemia. Missed HD 04/11/2020. Volume overload is chronic. 2. Obstipation 3. Anemia Recommendation: HD today 4 hours, 4 liter UF, 2K bath - again tomorrow No IVs, BPs, blood drawns left arm Epogen at dialysis GI or surgery evaluation Consult Attestations Medical Necessity Statement: per primary service Time Spent in Patient Care: 16 - 35 minutes Coding Level of Care Code Acute Service Administrator for Cristi Diane
[2020-04-13 18:35] LABS: Hepatitis B Surface Antigen Non-Reactive (Nonreactive); Hepatitis C Virus Antibody Non-Reactive (Nonreactive)
[2020-04-13] MEDS: heparin 5,000 unit/mL INJ 1 mL 5000 UNIT SUBCUT (19:17)
[2020-04-13] MEDS: acetaminophen 325 mg Tablet 650 MG PO (19:18)
[2020-04-13] MEDS: carvedilol 25 mg Tablet 12.5 MG PO (20:58)
[2020-04-13] MEDS: trazodone 50 mg Tablet PO (20:58)
[2020-04-13] MEDS: minoxidil 10 mg Tablet PO (20:58)
[2020-04-13] MEDS: lisinopril 20 mg Tablet PO (20:58)
[2020-04-13] MEDS: escitalopram 10 mg Tablet PO (20:58)
[2020-04-13] MEDS: docusate sodium 100 mg Capsule 200 MG PO (20:58)
[2020-04-14] VITALS (13 sets, daily range): BP systolic 120–188; BP diastolic 75–92; PULSE 82–94; RESP 14–24; TEMP 36.4–37.5; O2SAT 92–97
[2020-04-14] MEDS: morphine 4 mg/mL SDV 1 mL 2 MG IVP ×2 (02:12→17:18)
--- NOTE | 2020-04-14 03:32 | PC.NURSE ---
Patient refused his rapid covid test, stating that he had one last week.
[2020-04-14 03:49] LABS: Basophils % 0.7 %; Eosinophils # 0.3 10^3/uL (0.0-0.8); Eosinophils % 7.3 %; Hematocrit 27.9 % (42.0-52.0); Hemoglobin 8.5 g/dL (11.7-16.6); Lymphocytes # 0.7 10^3/uL (0.8-4.8); Lymphocytes % 15.6 %; Mean Corpuscular HGB Conc 30.5 g/dL (30.0-36.0); Mean Corpuscular Hemoglobin 28.9 pg (28.0-34.0); Mean Corpuscular Volume 94.9 fL (80-94); Mean Platelet Volume 9.3 fL (7.4-10.4); Monocytes # 0.3 10^3/uL (0.2-0.9); Monocytes % 7.3 %; Neutrophils # 3.01 10^3/uL (1.8-7.7); Neutrophils % 68.9 %; Nucleated Red Blood Cells % 0 %; Platelet Count 158 10^3/cmm (130-400); Red Blood Count 2.94 10^6/uL (4.1-5.3); Red Cell Distribution Width 18.5 % (12.1-15.1); White Blood Count 4.4 10^3/uL (4.0-10.0)
[2020-04-14 04:12] LABS: Alanine Aminotransferase 7 U/L (0-41); Albumin Level 3.2 g/dL (3.5-5.2); Alkaline Phosphatase 104 IU/L (40-130); Aspartate Amino Transferase 8 U/L (0-40); Blood Urea Nitrogen 26 mg/dL (6-20); Calcium 8.7 mg/dL (8.5-10.5); Carbon Dioxide 31 mmol/L (22-29); Chloride 95 mmol/L (98-107); Globulin 3.3 g/dL (1.3-4.6); Glomerular Filtration Rate 8.2 mL/min (90-130); Glucose 92 mg/dL (65-115); Osmolality Calculated 284 mOsm/kg (285-295); Sodium 135 mmol/L (136-145); Total Bilirubin 0.5 mg/dL (0.15-1.2); Total Protein 6.5 g/dL (6.6-8.7)
[2020-04-14] MEDS: heparin 5,000 unit/mL INJ 1 mL 5000 UNIT SUBCUT ×2 (05:18→17:17)
[2020-04-14] MEDS: carvedilol 25 mg Tablet 12.5 MG PO ×2 (08:29→19:35)
[2020-04-14] MEDS: calcium acetate 667 mg Capsule PO (08:29)
[2020-04-14] MEDS: spironolactone 25 mg Tablet PO (08:30)
[2020-04-14] MEDS: docusate sodium 100 mg Capsule 200 MG PO ×2 (08:30→19:47)
[2020-04-14] MEDS: levalbuterol 1.25 mg/3 mL Neb INHALATION (08:31)
[2020-04-14] MEDS: minoxidil 10 mg Tablet PO ×2 (08:32→19:38)
[2020-04-14] MEDS: lisinopril 20 mg Tablet PO ×2 (08:32→19:35)
--- NOTE | 2020-04-14 09:23 | P.PN_ITS ---
Subjective Subjective: Interval history: Seen during dialysis. Received IV morphine for abdominal pain. Reports no bowel movement Medications: Reviewed: Yes Vitals/I&O/Wt Last Vital Signs Temp 98.1 F 04/14/20 07:54 Pulse 84 04/14/20 08:40 Resp 18 04/14/20 08:36 BP 161/90 04/14/20 07:54 Pulse Ox 92 04/14/20 08:36 04/13/20 04/14/20 04/14/20 22:59 06:59 14:59 Intake Total 0 / 0 Output Total 0 / 0 Balance 0 / 0 Weight last 48 hrs Weight 81.647 kg Data : 04/14/20 03:22 04/14/20 03:22 A&P Additional A&P Information Impression: 1. ESRD, volume overload, hyperkalemia. Missed HD 04/11/2020. Volume overload is chronic. 2. Obstipation 3. Anemia 4. Hypertension Recommendation: HD today 4 hours, 3 liter UF, 2K bath. Next HD 04/16/2020 No IVs, BPs, blood drawns left arm Epogen at dialysis Lactulose 30 ml BID, stop spironolactone, hold calcium acetate for now. GI or surgery evaluation Attestations Medical Necessity Statement*: per primary service Time Spent in Patient Care: 16 - 35 minutes Coding Level of Care Code Acute Television Announcer for Cristi Diane
[2020-04-14] MEDS: morphine 4 mg/mL SDV 1 mL IVP (10:50)
--- NOTE | 2020-04-14 12:17 | PC.CHAP ---
Pastoral Care Encounter/Spiritual Assessment Type of Contact [] Declined lead worker of housekeeping and laundry visit [] Patient/Family/Request visit [] Outpatient visit [] Follow-up visit [] Physician referral [] Code/Alert [x] Routine visit [] Staff referral [] Actively dying [] Patient sleeping [] Family support [] [] Out of room [] Palliative care [] [] Receiving care in room [] Pre-surgical visit [] Trauma [] Long length of stay [] ICU visit [] Other: Relational/Emotional Strength [] Patient feels connected with others/family/visitors/staff [] Distress [] Loneliness/isolation [] Abandonment Spirituality of Patient [] Person of Ct [] Attends Christian of their Ct [] Believes in Prayer [] Reads Bible or Samaritan materials [] There are Spiritual issues to be addressed Applied Statistician Interventions [] Prayer [] Active listening [] Non-anxious presence [] Spiritual/emotional support [] Crisis/trauma care [] Spiritual counseling [] Bereavement support [] Provided bereavement packet [] Provided Bible/devotional materials [] Provided toy/stuffed animal, coloring book to patient or family member [] Provided Communion [] Anointing/[place] [] Salvation [] Completed spiritual assessment [] Other: Impact on Illness or Injury [] Angry [] Fearful [] Anxious [] Often cries [] Exhaustion [] Unable to work [] Unable to attend scientology [] Unable to walk/stand [] Unable to read [] Unable to drive [] Unable to eat/drink [] Unable to sleep [] Unable to be with family [] Patient intubated [] Other: Summary Time spent with patient
--- NOTE | 2020-04-14 13:48 | P.PN_ITS ---
Subjective Subjective: Interval history: Complains of ongoing back pain today. Abdominal pain is resolved as is nausea and vomiting. Also complains of tenderness to palpation over the lower back today. Plan for another session of dialysis today. Medications: Reviewed: Yes Vitals/I&O/Wt Last Vital Signs Temp 98.1 F 04/14/20 07:54 Pulse 84 04/14/20 08:40 Resp 18 04/14/20 10:50 BP 161/90 04/14/20 07:54 Pulse Ox 92 04/14/20 08:36 04/13/20 04/14/20 04/14/20 22:59 06:59 14:59 Intake Total 0 / 0 320 / 320 Output Total 0 / 0 Balance 0 / 0 320 / 320 Weight last 48 hrs Weight 81.647 kg Physical Exam Narrative: EXAM NARRATIVE: GEN: Awake, alert, chronically ill appearing man in moderate distress due to pain CVS: S1S2 N RS: B/L clear Abd: Soft, less distended than yesterday's exams, tenderness to palpation lower back Extremities multiple scabs seen over upper extremities, which patient attributes to itching, however appear more to be healed scabs from folliculitis. KETTLE CHIPPER: no focal neuro deficits Data : 04/14/20 03:22 04/14/20 03:22 A&P Assessment and plan (1) Intractable nausea and vomiting: Symptoatic managemenet with prn zofran and compazine alternating may be related to uremia from missed dialysis vs mesenteric edema as noted on CT CT abdomen without acute events , anasarca noted Patient refused checking of COVID-19 antigen Status: Acute (2) Abdominal pain: States this is imrpoved today, reports site of pain as mostly to be lower back today Status: Acute Qualifiers: Abdominal location: generalized Qualified Code(s): R10.84 - Generalized abdominal pain (3) COPD (chronic obstructive pulmonary disease): not currently excarebated duonebs q4h prn Status: Chronic (4) Anxiety with depression: Status: Acute (5) End-stage renal disease on hemodialysis: Renal consulted for HD today, hyperkalemia on labs, expect to resolve with HD Dialysis session planned for today Status: Chronic (6) Back pain: Patient has previously had x-ray of the lumbar spine dating back to January 2020 which showed degenerative disc narrowing at L5-S1, anterior subluxation with bilateral spondylolysis at L5-S1 and osteoarthritic spurring at L4 and L5. Added morphine for pain control as needed, lidocaine patch to site. Status: Acute Attestations Medical Necessity Statement*: HD today, pain control Coding Level of Care Code Acute Aircraft Detail Draftsperson for Adriannag Fwd Diagnoses Intractable nausea and vomiting R11.2 Abdominal pain R10.84 Abdominal location: generalized COPD (chronic obstructive pulmonary disease) J44.9 Anxiety with depression F41.8 End-stage renal disease on hemodialysis N18.6; Z99.2 Back pain M54.9
[2020-04-14] MEDS: lidocaine 2% viscous 15 ML, aluminum-mag hydrox-simethicon 30 ML, sucralfate oral liq 1 GM PO (15:36)
[2020-04-14] MEDS: lactulose oral liq 20 gm/30 mL UDC 30 GM PO (15:37)
[2020-04-14] MEDS: bisacodyl 10 mg Supp PR (15:43)
[2020-04-14] MEDS: trazodone 50 mg Tablet PO (19:35)
[2020-04-14] MEDS: escitalopram 10 mg Tablet PO (19:35)
[2020-04-14] MEDS: lidocaine 5% Patch 1 PATCH TOPICAL (21:19)
[2020-04-15] VITALS (9 sets, daily range): BP systolic 149–189; BP diastolic 63–103; PULSE 80–98; RESP 14–24; TEMP 36.7–37.1; O2SAT 93–95
[2020-04-15] MEDS: lactulose oral liq 20 gm/30 mL UDC 30 GM PO (00:07)
--- NOTE | 2020-04-15 04:00 | XRR_ITS ---
PROCEDURE INFORMATION: Exam: XR Abdomen, 1 View Exam date and time: 04/15/2020 5:51 AM Age: 39 years old Clinical indication: Abdominal pain; Additional info: [place] for sbo/ileus TECHNIQUE: Imaging protocol: XR of the abdomen. Views: Frontal supine view of the abdomen. 1 View. COMPARISON: CT abdomen pelvis w con* [id number] 04/13/2020 12:11 PM FINDINGS: Gastrointestinal tract: Gas distention of bowel centrally and within the upper pelvis predominantly colonic most suggestive of colonic ileus. Paucity of bowel gas in the right upper quadrant possibly on the basis of abdominal ascites and hepatomegaly. Minor central left small bowel gas. No extreme dilatation of bowel. Bones/joints: Unremarkable. XR/XR abdomen 1V* [id number] IMPRESSION: 1. Likely minor left central and colonic ileus. 2. Prominent soft tissues upper abdomen likely secondary to combination ascites and hepatomegaly.
[2020-04-15] MEDS: heparin 5,000 unit/mL INJ 1 mL 5000 UNIT SUBCUT (05:04)
[2020-04-15] MEDS: cloNIDine 0.1 mg Tablet PO ×2 (05:06→15:57)
[2020-04-15 07:23] LABS: Basophils # 0.1 10^3/uL (0.0-0.1); Basophils % 1.1 %; Eosinophils # 0.3 10^3/uL (0.0-0.8); Eosinophils % 6.6 %; Hematocrit 27.7 % (42.0-52.0); Hemoglobin 8.6 g/dL (11.7-16.6); Lymphocytes # 0.7 10^3/uL (0.8-4.8); Lymphocytes % 16.1 %; Mean Corpuscular Hemoglobin 29.7 pg (28.0-34.0); Mean Corpuscular Volume 95.5 fL (80-94); Mean Platelet Volume 9.2 fL (7.4-10.4); Monocytes # 0.4 10^3/uL (0.2-0.9); Monocytes % 8.4 %; Neutrophils # 2.99 10^3/uL (1.8-7.7); Neutrophils % 67.6 %; Nucleated Red Blood Cells % 0 %; Platelet Count 148 10^3/cmm (130-400); Red Cell Distribution Width 18.1 % (12.1-15.1); White Blood Count 4.4 10^3/uL (4.0-10.0)
[2020-04-15 08:04] LABS: Anion Gap 12.4 (5-19); Blood Urea Nitrogen 14 mg/dL (6-20); Calcium 9.1 mg/dL (8.5-10.5); Carbon Dioxide 31 mmol/L (22-29); Chloride 94 mmol/L (98-107); Glomerular Filtration Rate 12.3 mL/min (90-130); Glucose 72 mg/dL (65-115); Osmolality Calculated 275 mOsm/kg (285-295); Phosphorus 4.2 mg/dL (2.5-4.5); Potassium 4.4 mmol/L (3.5-5.1); Sodium 133 mmol/L (136-145)
[2020-04-15] MEDS: lidocaine 5% Patch 1 PATCH TOPICAL (08:15)
[2020-04-15] MEDS: docusate sodium 100 mg Capsule 200 MG PO (08:15)
[2020-04-15] MEDS: lisinopril 20 mg Tablet PO (08:15)
[2020-04-15] MEDS: carvedilol 25 mg Tablet 12.5 MG PO (08:16)
[2020-04-15] MEDS: minoxidil 10 mg Tablet PO (08:18)
--- NOTE | 2020-04-15 12:30 | P.DS_ITS ---
Discharge Providers Date of Admission: 04/13/20 13:11 Date of Discharge: April 15, 2020 Attending Provider at Admission: Tiarra Villegas MD Attending Provider at Discharge: Tiarra Villegas MD Primary Care Provider: Mal Junior Diagnoses at Discharge Discharge Diagnosis (1) Intractable nausea and vomiting: Status: Acute (2) Abdominal pain: Status: Acute Qualifiers: Abdominal location: generalized Qualified Code(s): R10.84 - Generalized abdominal pain (3) COPD (chronic obstructive pulmonary disease): Status: Chronic (4) Anxiety with depression: Status: Acute (5) End-stage renal disease on hemodialysis: Status: Chronic (6) Back pain: Status: Acute Reason for Visit Reason for Visit: ABD PAIN/PCP STATED POSS BOWEL OBSTRUCTION Hospital Course Hospital Course Mal Gibbs is a 39 year old male with past medical history of hypertension and end-stage renal disease for which he undergoes maintenance hemodialysis on Thursday and Thursday as an outpatient. He reports having missed his last session 2 days ago as he was at [facility] for abdominal pain and nausea. He complains of abdominal pain, distention over this. Along with episodes of vomiting. CT abdomen performed in the ER without any acute events however showed increased ascites. Upon admission his labs were with a potassium of 6.1 creatinine 10.4, he underwent hemodialysis on 04/13/2012 with significant improvement in his nausea and vomiting. Likely that this could have been related to uremia. Also possible that this may have been related to mesenteric edema as noted on CT. Patient refused COVID-19 antigen testing better controlled with enteritis. He was given laxatives including lactulose and docusate. She had 1 bowel movement today. He is passing gas freely. He is tolerating a p.o. intake and requesting advancement from change to regular diet. He tolerated a regular meal at lunch without any adverse events. He also complained of some back pain, review of previous x-rays showed that he had degenerative disease. Lidocaine patch was placed with significant relief of his back pain. Discharged today in stable improved condition. He will continue outpatient dialysis tomorrow. 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: no focal neuro deficits Discharge Data Data Completed and Pending: Completed Studies During Hospitalization Category Date Time Status CT abdomen pelvis w con* [id number] Urge nt Cat Scan 04/13/20 11:17 Completed XR abdomen 1V* 74 018 AM LABS Exams 04/15/20 04:00 Completed XR chest 1V sabino ble [id number] Routine Exams 04/13/20 14:25 Completed Pending at discharge Category Date Time Status Blood Culture AM LABS Lab 04/15/20 07:09 Results Labs from last 24 hours 04/15/20 04/15/20 07:05 07:05 WBC 4.4 RBC 2.90 L Hgb 8.6 L Hct 27.7 L MCV 95.5 H MCH 29.7 MCHC 31.0 RDW 18.1 H Plt Count 148 MPV 9.2 Neut % (Auto) 67.6 Lymph % (Auto) 16.1 [place] % (Auto) 8.4 Eos % (Auto) 6.6 Baso % (Auto) 1.1 Neut # (Auto) 2.99 Lymph # (Auto) 0.7 L [place] # (Auto) 0.4 Eos # (Auto) 0.3 Baso # (Auto) 0.1 Nucleated RBC % (a uto) 0 Nucleated RBCs # 0.0 Sodium 133 L Potassium 4.4 Chloride 94 L Carbon Dioxide 31 H Anion Gap 12.4 BUN 14 Creatinine 5.3 H GFR Calculation 12.3 L Glucose 72 Calculated Osmolal ity 275 L Calcium 9.1 Phosphorus 4.2 Vitals: Last Vital Signs Temp 98.1 F 04/15/20 12:00 Pulse 98 04/15/20 12:00 Resp 18 04/15/20 12:00 BP 173/63 04/15/20 12:00 Pulse Ox 93 04/15/20 09:16 Discharge Plan Discharge Patient Disposition: Home Condition: Stable Prescriptions: New lactulose 20 gram/30 mL Solution 30 g PO Q12H 15 Days Qty: 1350 RF: 0 lidocaine 4 % adhesive patch,medicated 1 patch topical DAILY Qty: 10 RF: 0 Percocet 5-325 mg tablet 1 tab PO Q8H PRN (Reason: pain) Qty: 20 RF: 0 Continued clonidine HCl 0.1 mg tablet 0.1 mg PO BID PRN (Reason: Blood Pressure) 30 Days Qty: 60 RF: 2 carvedilol 25 mg tablet 12.5 mg PO Q12H RF: 0 spironolactone 25 mg tablet 25 mg PO DAILY@08 RF: 0 calcium acetate 667 mg tablet See Rx Instructions .ROUTE .COMPLEX RF: 0 levalbuterol tartrate [Xopenex HFA] 45 mcg/actuation HFA aerosol inhaler 2 inh INHALATION Q6H PRN (Reason: shortness of breath or wheezing) Qty: 15 R F: 2 Incruse Ellipta 62.5 mcg/actuation blister with device 1 inh INHALATION Q24H Qty: 30 RF: 2 minoxidil 2.5 mg tablet 10 mg PO BID@08,20 RF: 0 Lexapro 10 mg tablet 10 mg PO DAILY@1999 RF: 0 trazodone 50 mg Tablet 50 mg PO BEDTIME@20 RF: 0 terazosin 2 mg Capsule 2 mg PO BEDTIME@20 RF: 0 docusate sodium 100 mg Capsule 200 mg PO BID@08,20 RF: 0 lisinopril 20 mg tablet 20 mg PO BID@,20 RF: 0 Discharge Orders: Discharge Order (Routine); Ordered 04/15/20 Ordered By: Tiarra Villegas Referrals: Mal Junior [Primary Care Provider] - 4-7 days (Please call Thursday to make a follow up appointment.) Discharge Diet: Usual diet Discharge Activity: Resume usual activity Patient Instructions: Back Pain, COPD, Oxycodone/Acetaminophen (By mouth), Lactulose (By mouth), Lidocaine (On the skin), COPD Stoplight Discharge Attestations Time Spent in Discharge Care*: less than 30 min Quality Metrics Clinical Quality Measures During this hospital stay, did patient experience: None Coding Level of Care Code Acute Residential Appliance Repair Technician for Chg Fwd Diagnoses Intractable nausea and vomiting R11.2 Abdominal pain R10.84 Abdominal location: generalized COPD (chronic obstructive pulmonary disease) J44.9 Anxiety with depression F41.8 End-stage renal disease on hemodialysis N18.6; Z99.2 Back pain M54.9
--- NOTE | 2020-04-16 13:44 | PC.RESP ---
Smoking Cessation and Pulmonary Rehab packet sent to patient.
== END 2020-04-15 17:30 | disposition home or self-care (01) | DRG 640 ==
LOC: ER 12:38 → MEDSURG 14:04
PROVIDERS: Internal Medicine; Admitting Provider Student in an Organized Health Care Education/Training Program; Emergency Provider Emergency Medicine; PCP Family Medicine; Visit Provider Student in an Organized Health Care Education/Training Program
DX: E87.5 Hyperkalemia (principal); N18.6 End stage renal disease; I12.0 Hypertensive chronic kidney disease with stage 5 chronic kidney disease or end stage renal disease; R18.8 Other ascites; R11.2 Nausea with vomiting, unspecified; Z99.2 Dependence on renal dialysis; F41.8 Other specified anxiety disorders; J44.9 Chronic obstructive pulmonary disease, unspecified; F17.210 Nicotine dependence, cigarettes, uncomplicated; M47.897 Other spondylosis, lumbosacral region; M47.816 Spondylosis without myelopathy or radiculopathy, lumbar region; R16.0 Hepatomegaly, not elsewhere classified; Z89.021 Acquired absence of right finger(s); K59.00 Constipation, unspecified; D63.1 Anemia in chronic kidney disease
CPT/HCPCS: 12345; 36415; 71045; 74018; 74177; 80048; 80053; 83605; 83690; 84100; 85025; 86803; 87040; 87340; 94640; 96372; 96375; 99283; J1644; J2270; J2405; J7614; Q4081; Q9967

== ENCOUNTER 2020-05-03 12:48 | Inpatient (IN) | payer MEDICARE, MEDICAID, SELFPAY ==
[2020-05-03 12:57] VITALS: BP 204/126; PULSE 91; RESP 26; TEMP 36.3; O2SAT 97; BMI 24.6
--- NOTE | 2020-05-03 13:45 | CT_ITS ---
WS: [id number] Exam: CT abdomen pelvis w con* [id number] Date/Time of Exam: 05/03/2020 3:25 PM Reason For Exam: abd pain Moderate sized left posterior pleural effusion with small posterior right pleural effusion. Visualize d lower lung zones are clear. The heart is enlarged. Pericardial effusion noted. Effusion measures a maximum of 1.6 cm at greatest thickness along the posterior right heart border. Large amount of abdom inal and pelvic ascites. Hepatosplenomegaly. The liver measures 23 cm in greatest dimension, the sple en 15 cm. The abdominal aorta is normal in caliber. Bilateral atrophic kidneys. Normal bilateral adre nal glands. Anasarca. The pancreas is unremarkable. The stomach appears to be grossly intact. No calc ified stones in the gallbladder. No lymphadenopathy or free air. Mild fluid distention of several sma ll bowel loops in the left abdomen which may represent localized ileus. There is gas and stool in the colon. Normal appendix. No lymphadenopathy in the abdomen or pelvis. Intact urinary bladder. Enlarge d bilateral inguinal lymph nodes. The largest nodes measure about 1.8 cm at greatest short axis dimen jonnie. Some lymph nodes demonstrate fatty replacement. No destructive bone lesions. Bilateral pars def ect of L5 with grade 1 spondylolisthesis of L5 on S1. CT/CT abdomen pelvis w con* [id number] IMPRESSION: 1. Bilateral pleural effusions most marked on the right. Pericardial effusion. Cardiac enlargement. 2. Extensive abdominal and pelvic ascites. Anasarca. 3. Hepatosplenomegaly. Bilateral renal atrophy. 4. Fluid distention of several small bowel loops in the left abdomen probably r epresenting localized ileus. No sign of maida bowel obstruction or pneumoperito neum. 5. Bilateral inguinal lymphadenopathy.
--- NOTE | 2020-05-03 13:55 | W.ED.ABDPA2 ---
HPI - Abdominal Pain General: Chief Complaint: Abdominal Pain Stated Complaint: abd pain Time Seen by Provider: 05/03/20 13:03 History of Present Illness: HPI narrative: 39-year-old male with end-stage renal disease. Presents emergency room complaining of abdominal pain. He previously was on peritoneal dialysis several years ago he has scars from his abdomen from peritoneal dialysis of port attempt. He states his last BM was 3 to 4 days ago. He missed dialysis yesterday he usually gets it Thursday he has been taking lactulose as prescribed but has not been having a bowel movement. He was here 3 weeks ago for similar complaint denies any medication melena hematemesis or coffee-ground emesis. MD elicited complaint: abdominal pain Pertinent past history: constipation Onset (ago): day(s) Pain Consistency: constant Location: Diffuse Quality: cramping Migration to: no migration Exacerbating factors: movement Relieving factors: rest Associated Symptoms: Reports anorexia, bloating, change in bowel habits, constipation, GI cramping, loose stools and poor appetite; Denies belching, change in stool character, chills, coffee ground emesis, diarrhea, dyspepsia, dysuria, excessive flatus, fever(s), heartburn, hematochezia, hematuria, hematemesis, fecal incontinence, melena, nausea, syncope and vomiting Review of Systems Const: Denies: fever(s) or chills ENMT: Denies: throat pain, ear or mastoid pain, nasal discharge or nasal congestion Card: Denies: syncope Resp: Denies: dyspnea, productive cough or non-productive cough GI: Reports: constipation, bloating, GI cramping and change in bowel habits; Denies: nausea, vomiting, hematemesis, coffee ground emesis, heartburn, diarrhea, belching, excessive flatus, fecal incontinence, change in stool character, hematochezia or melena : Denies: dysuria or hematuria Skin/Breast: Denies: rash or pruritus PFSH ED PFSH: Medical History Anxiety with depression Arteriovenous fistula for hemodialysis in place, secondary COPD (chronic obstructive pulmonary disease) Current smoker Degenerative disc disease, lumbar End-stage renal disease on hemodialysis Hepatomegaly Hypertension Surgical History H/O hand surgery Amputation right 2&3 fingers 2017 History of adenoidectomy Family History Other Hypertension Denies family history of Diabetes Chronic kidney disease (CKD) Lung disease Cancer Stroke Social History Smoking and tobacco status: current every day smoker Second hand smoke exposure: Yes Smoking risk assessment/counseling performed?: Yes Alcohol intake: never Desire information about alcohol rehabilitation?: No Counseling given: No Desire information about substance/drug rehabilitation?: No Counseling given: No Adopted: No Caregiver/support person: No Lives independently: Yes Household members: spouse and family Housing: House Marital status: Number of children: 3 service: No Current occupational status: disabled Pets and animals: Yes Pets & animals: cat(s) and dog(s) History of recent travel: No Current gender identity: Male Physical Exam Const: COMMON NORMALS: no acute distress GENERAL APPEARANCE: cooperative and comfortable ORIENTATION/CONSCIOUSNESS: Yes awake, Yes oriented to person, Yes oriented to place and Yes oriented to time HENMT: COMMON NORMALS: normocephalic, atraumatic, hearing grossly normal bilaterally, external ears normal, EAC's normal, TM's normal bilaterally, Normal nasal mucous membranes and turbinates present, moist oral mucous membranes and oropharynx normal HEAD & SCALP: normocephalic and atraumatic NOSE: Normal nasal mucous membranes and turbinates present EXTERNAL EAR: Yes external ears normal EXTERNAL AUDITORY CANAL: EAC's normal TYMPANIC MEMBRANE: TM's normal bilaterally Eye: COMMON NORMALS: Equal, round and reactive pupils present, EOMs intact bilaterally, conjunctivae normal and no scleral icterus CONJUNCTIVA: Yes conjunctivae normal PUPIL: Yes Equal, round and reactive pupils present Neck/C-Spine: COMMON NORMALS: full ROM, no lymphadenopathy, supple and no JVD Lymph: LYMPHATIC: no lymphadenopathy noted and no lymphedema noted Resp: COMMON NORMALS: normal respiratory effort, No retractions, No use of accessory muscles and clear to auscultation bilaterally AUSCULTATION: clear to auscultation bilaterally Cardio: COMMON NORMALS: no JVD, regular rate, regular rhythm and No murmurs present (Cardio) RATE: regular rate RHYTHM: regular rhythm GI: COMMON NORMALS: No hepatosplenomegaly present AUSCULTATION: Yes normoactive bowel sounds PALPATION: No Tenderness to palpation present (GI), No Guarding due to palpation present (GI) and Yes No hepatosplenomegaly present Extremity: COMMON NORMALS: normal to inspection, capillary refill normal, no clubbing, cyanosis or edema, no calf tenderness and no pedal edema Neuro: SENSORIUM/ORIENTATION: Yes oriented to person, Yes oriented to place and Yes oriented to time Skin: COMMON NORMALS: no rashes or lesions noted GENERAL SKIN EXAM: no rashes or lesions noted Course Vital Signs: Vital signs: Vital Signs Temperature 99.0 F 05/04/20 07:49 Pulse Rate 89 05/04/20 07:49 Respiratory Rate 20 H 05/04/20 07:49 Blood Pressure 211/141 05/04/20 07:49 Pulse Oximetry 93 05/04/20 07:49 MDM - Abdominal Pain MDM Narrative: Medical decision making narrative: CT showed poor contrast perfusion to the abdomen. He does have significant hepatomegaly he also has some fluid in his abdomen. Concerned about SBP. He did miss his dialysis yesterday. Will consult nephrology and admit with the hospitalist discussed Dr. Villegas Lab Data: Labs: Lab Results 05/03/20 05/03/20 05/03/20 Range/Units 14:08 14:08 14:08 WBC 5.7 (4.0-10.0) 10^3/ uL RBC 3.22 L (4.1-5.3) 10^6/u L Hgb 9.4 L (11.7-16.6) g/dL Hct 29.9 L (42.0-52.0) % MCV 92.9 (80-94) fL MCH 29.2 (28.0-34.0) pg MCHC 31.4 (30.0-36.0) g/dL RDW 17.0 H (12.1-15.1) % Plt Count 261 (130-400) 10^3/c mm MPV 10.3 (7.4-10.4) fL Neut % (Auto) 73.2 % Lymph % (Auto) 12.6 % [place] % (Auto) 7.9 % Eos % (Auto) 4.9 % Baso % (Auto) 1.2 % Neut # (Auto) 4.18 (1.8-7.7) 10^3/u L Lymph # (Auto) 0.7 L (0.8-4.8) 10^3/u L [place] # (Auto) 0.5 (0.2-0.9) 10^3/u L Eos # (Auto) 0.3 (0.0-0.8) 10^3/u L Baso # (Auto) 0.1 (0.0-0.1) 10^3/u L Nucleated RBC % (a uto) 0 % Nucleated RBCs # 0.0 /100WBC Sodium 133 L (136-145) mmol/L Potassium 4.6 (3.5-5.1) mmol/L Chloride 90 L (98-107) mmol/L Carbon Dioxide 29 (22-29) mmol/L Anion Gap 18.6 (5-19) BUN 38 H (6-20) mg/dL Creatinine 9.5 H* (0.7-1.2) mg/dL GFR Calculation 6.3 L (90-130) mL/min Glucose 80 (65-115) mg/dL Calculated Osmolal ity 284 L (285-295) mOsm/k g Calcium 9.3 (8.5-10.5) mg/dL Total Bilirubin 0.5 (0.15-1.2) mg/dL AST 8 (0-40) U/L ALT 7 (0-41) U/L Alkaline Phosphata se 96 (40-130) IU/L Creatine Kinase 47 (39-308) U/L C-Reactive Protein (0.0-4.9) mg/L Total Protein 7.5 (6.6-8.7) g/dL Albumin 3.5 (3.5-5.2) g/dL Globulin 4.0 (1.3-4.6) g/dL Hep Bs Antigen Non-reactive (Nonreactive) Hep Bs Antibody 245.1 H (0-8.5) Hepatitis C Antibo dy Non-reactive (Nonreactive) 05/03/20 Range/Units 16:40 WBC (4.0-10.0) 10^3/ uL RBC (4.1-5.3) 10^6/u L Hgb (11.7-16.6) g/dL Hct (42.0-52.0) % MCV (80-94) fL MCH (28.0-34.0) pg MCHC (30.0-36.0) g/dL RDW (12.1-15.1) % Plt Count (130-400) 10^3/c mm MPV (7.4-10.4) fL Neut % (Auto) % Lymph % (Auto) % [place] % (Auto) % Eos % (Auto) % Baso % (Auto) % Neut # (Auto) (1.8-7.7) 10^3/u L Lymph # (Auto) (0.8-4.8) 10^3/u L [place] # (Auto) (0.2-0.9) 10^3/u L Eos # (Auto) (0.0-0.8) 10^3/u L Baso # (Auto) (0.0-0.1) 10^3/u L Nucleated RBC % (a uto) % Nucleated RBCs # /100WBC Sodium (136-145) mmol/L Potassium (3.5-5.1) mmol/L Chloride (98-107) mmol/L Carbon Dioxide (22-29) mmol/L Anion Gap (5-19) BUN (6-20) mg/dL Creatinine (0.7-1.2) mg/dL GFR Calculation (90-130) mL/min Glucose (65-115) mg/dL Calculated Osmolal ity (285-295) mOsm/k g Calcium (8.5-10.5) mg/dL Total Bilirubin (0.15-1.2) mg/dL AST (0-40) U/L ALT (0-41) U/L Alkaline Phosphata se (40-130) IU/L Creatine Kinase (39-308) U/L C-Reactive Protein 51.4 H (0.0-4.9) mg/L Total Protein (6.6-8.7) g/dL Albumin (3.5-5.2) g/dL Globulin (1.3-4.6) g/dL Hep Bs Antigen (Nonreactive) Hep Bs Antibody (0-8.5) Hepatitis C Antibo dy (Nonreactive) Discharge Plan Discharge Patient Disposition: Admitted As Inpatient Admit Provider: Emanuel Nation Coding Level of Care Code ED Nurse Private Duty for Chg Fwd Exam Comprehensive
[2020-05-03 14:27] LABS: Basophils # 0.1 10^3/uL (0.0-0.1); Basophils % 1.2 %; Eosinophils # 0.3 10^3/uL (0.0-0.8); Eosinophils % 4.9 %; Hematocrit 29.9 % (42.0-52.0); Hemoglobin 9.4 g/dL (11.7-16.6); Lymphocytes # 0.7 10^3/uL (0.8-4.8); Lymphocytes % 12.6 %; Mean Corpuscular HGB Conc 31.4 g/dL (30.0-36.0); Mean Corpuscular Hemoglobin 29.2 pg (28.0-34.0); Mean Corpuscular Volume 92.9 fL (80-94); Mean Platelet Volume 10.3 fL (7.4-10.4); Monocytes # 0.5 10^3/uL (0.2-0.9); Monocytes % 7.9 %; Neutrophils # 4.18 10^3/uL (1.8-7.7); Neutrophils % 73.2 %; Nucleated Red Blood Cells % 0 %; Platelet Count 261 10^3/cmm (130-400); Red Blood Count 3.22 10^6/uL (4.1-5.3); White Blood Count 5.7 10^3/uL (4.0-10.0)
--- NOTE | 2020-05-03 16:21 | US_ITS ---
WS: [id number] ULTRASOUND ABDOMEN LIMITED CLINICAL INFORMATION: suspected SBP COMPARISON: None. FINDINGS: Small volume perihepatic and pelvic ascites. Adequate window cannot be obtained to safely perform par acentesis. Liver extends into the right lower quadrant. US/US abdomen limited [id number] IMPRESSION: No suitable window to safely perform paracentesis
[2020-05-03] MEDS: morphine 4 mg/mL SDV 1 mL IVP ×2 (16:47→23:12)
[2020-05-03] MEDS: nitroglycerin 1 gm/inch oint Pkt 1 INCH TOPICAL (16:48)
[2020-05-03] MEDS: ondansetron 2 mg/ML SDV 2 mL 4 MG IVP (16:48)
[2020-05-03] MEDS: cefTRIAXone 2,000 MG in sodium chloride 0.9% (plus) 50 ML 100 MG IV (16:48)
[2020-05-03 16:51] VITALS: BP 208/139; PULSE 88; O2SAT 100
[2020-05-03 16:51] LABS: Alanine Aminotransferase 7 U/L (0-41); Albumin Level 3.5 g/dL (3.5-5.2); Alkaline Phosphatase 96 IU/L (40-130); Anion Gap 18.6 (5-19); Aspartate Amino Transferase 8 U/L (0-40); Blood Urea Nitrogen 38 mg/dL (6-20); Calcium 9.3 mg/dL (8.5-10.5); Carbon Dioxide 29 mmol/L (22-29); Chloride 90 mmol/L (98-107); Creatine Phosphokinase 47 U/L (39-308); Glomerular Filtration Rate 6.3 mL/min (90-130); Glucose 80 mg/dL (65-115); Osmolality Calculated 284 mOsm/kg (285-295); Potassium 4.6 mmol/L (3.5-5.1); Sodium 133 mmol/L (136-145); Total Bilirubin 0.5 mg/dL (0.15-1.2); Total Protein 7.5 g/dL (6.6-8.7)
[2020-05-03 17:05] LABS: C Reactive Protein 51.4 mg/L (0.0-4.9)
--- NOTE | 2020-05-03 17:36 | P.CONIM_ITS ---
Providers/Reason For Consult Consulting Physican/Specialty*: tona Betancourt md / telenephrology Reason for Consult*: ESRD care Primary Care Provider: Mal Junior History of Present Illness History of Present Illness Mal Gibbs is a 39 year old male HSM, anxiety, htn, esrd. pt has missed HD due to abd pain. he has hadmultiple episodes of abd pain and weight gain. usually his pain improves w/ a couple of dialysis sessions. Pt states he has abd pain, constipation, nausea, swelling, headaches, feels sick. Review of Systems General: Reports: 10 or more systems reviewed and unremarkable except in HPI and below Narrative: weak sob, swollen, abd pain and distention, edema, headaches Meds/Allergies Home Medications and Allergies Home Medications Medication Instructions Recorded Confirmed Last Taken Type calcium acetate 667 mg tablet See Rx Instructions .ROUTE 01/24/20 05/03/20 04/12/20 History .COMPLEX tab carvedilol 25 mg tablet 12.5 mg PO Q12H tab 01/24/20 05/03/20 05/03/20 History levalbuterol tartrate 45 2 inh INHALATION Q6H PRN #15 gm 01/24/20 05/03/20 Unknown Rx mcg/actuation aerosol inhaler minoxidil 2.5 mg tablet 10 mg PO BID@,20 tab 01/24/20 05/03/20 05/03/20 History spironolactone 25 mg tablet 25 mg PO DAILY@08 tab 01/24/20 05/03/20 05/03/20 History docusate sodium 200 mg PO BID@,04/13/20 05/03/20 05/03/20 History lisinopril 20 mg PO BID@,20 04/13/20 05/03/20 05/03/20 History terazosin 2 mg PO BEDTIME@20 04/13/20 05/03/20 05/02/20 History trazodone 50 mg PO BEDTIME@20 04/13/20 05/03/20 05/02/20 History Incruse Ellipta 1 inh INHALATION DAILY@0800 05/03/20 05/03/20 05/03/20 History Allergies Allergy/AdvReac Type Severity Reaction Status Date / Time No Known Allergies Allergy Verified 09/11/19 08:55 PFSH Acute PFSH: Medical History Anxiety with depression Arteriovenous fistula for hemodialysis in place, secondary COPD (chronic obstructive pulmonary disease) Current smoker Degenerative disc disease, lumbar End-stage renal disease on hemodialysis Hepatomegaly Hypertension Surgical History H/O hand surgery Amputation right 2&3 fingers 2017 History of adenoidectomy Family History Other Hypertension Denies family history of Diabetes Chronic kidney disease (CKD) Lung disease Cancer Stroke Social History Smoking and tobacco status: current every day smoker Second hand smoke exposure: Yes Smoking risk assessment/counseling performed?: Yes Alcohol intake: never Desire information about alcohol rehabilitation?: No Counseling given: No Desire information about substance/drug rehabilitation?: No Counseling given: No Adopted: No Caregiver/support person: No Lives independently: Yes Household members: spouse and family Housing: House Marital status: Number of children: 3 service: No Current occupational status: disabled Pets and animals: Yes Pets & animals: cat(s) and dog(s) History of recent travel: No Current gender identity: Male Vitals/I&O/Wt Last Vital Signs Temp 97.3 F L 05/03/20 12:57 Pulse 88 05/03/20 16:51 Resp 26 H 05/03/20 12:57 BP 208/139 05/03/20 16:51 Pulse Ox 100 05/03/20 16:51 Weight last 48 hrs Weight 84.822 kg Physical Exam Narrative: EXAM NARRATIVE: uncomfortable, BP elevated heent- nc/at, eomi, anicteric neck no jvp lungs dull bases heart- no rub abd soft, +BS, tender, HSM ext b/l edema LUE AVF neuro- a,a, o x2 pulses poor Data Micro: Micro: Microbiology 05/03/20 14:08 Blood Culture - Pr eliminary Blood SPECIMEN COLLEC CLARI A&P Additional A&P Information 39 yr old man 1. volume overload, abd pain, ct w/ pericardial effusion and pleural effusion, and htn- pt needs HD now for voluem remoal and repeat in am 2. Q of ileus- per medicine- monitor w/ HD 3. pericardial and pleural effusion- voluem overload- please get echo to assess pericardial effusion -pt can not miss HD sessions- as his uremia can be contrinuiting to pericardial effusions. also missing hd is contribuiting to volume overload 4. monitor hgb, phos discussed w/ pt, RN, HD rN, and ER physician Consult Attestations Medical Necessity Statement: ESRD, htn, abd pain, pericardial and pleural effusion Time Spent in Patient Care: Greater than 35 minutes Coding Level of Care Code Acute Biology Internship for [facility]
[2020-05-03] MEDS: hyDRALAzine 25 mg Tablet PO (17:39)
--- NOTE | 2020-05-03 17:54 | USCV_ITS ---
Mal Gibbs Age: 39 Gender: M : 1980 Exam Date: 05/03/2020 18:19 Ordering Phys: Sina Betancourt MD Technologist: Francesca Head Exam Location: [facility] [place] Indication: pericardial effusion BP: 204 / 131 HR: 84 Rhythm: Sinus Technical Quality: Good MEASUREMENTS (Male / Female) Normal Values 2D ECHO LV Diastolic Diameter PLAX 5.1 cm 4.2 - 5.9 / 3.9 - 5.3 cm LV Systolic Diameter PLAX 3.8 cm LV Chamber Size 3.3 cm IVS Diastolic Thickness 1.4 cm 0.6 - 1.0 / 0.6 - 0.9 cm IVS Systolic Thickness 1.4 cm LVPW Diastolic Thickness 2.1 cm 0.6 - 1.0 / 0.6 - 0.9 cm LVPW Systolic Thickness 2.5 cm RV Chamber Size 2.6 cm LVOT Diameter 2.0 cm LV Ejection Fraction 2D Teich 51.4 % LV Ejection Fraction MOD 2C 55.2 % LV Ejection Fraction 2C AL 55.5 % LA Diameter 4.3 cm LA Width 3.7 cm LA Height 6.7 cm RA Width 4.8 cm RA Height 4.8 cm Aorta at Sinotubular Diameter 2.3 cm M-MODE LV Diastolic Diameter MM 5.8 cm 4.2 - 5.9 / 3.9 - 5.3 cm LV Systolic Diameter MM 4.4 cm LV Ejection Fraction MM Teich 48.2 % IVS Diastolic Thickness MM 1.5 cm 0.6 - 1.0 / 0.6 - 0.9 cm IVS Systolic Thickness MM 1.7 cm LVPW Diastolic Thickness MM 1.4 cm 0.6 - 1.0 / 0.6 - 0.9 cm LVPW Systolic Thickness MM 2.1 cm Aortic Annulus Diameter 3.1 cm LA Ao Ratio MM 1.6 MV E Point Septal Separation 1.2 cm DOPPLER AV Peak Velocity 165.0 cm/s LVOT Peak Velocity 136.0 cm/s AV Area Cont Eq vti 2.6 cm squared AV Area Cont Eq pk 2.7 cm squared MV Area PHT 6.7 cm squared Mitral E to A Ratio 3.3 MV E' Velocity 88.0 cm/s Mitral E to MV E' Ratio 15.8 Mitral E to LV E' Lateral Ratio 17.1 Mitral E to LV E' Septal Ratio 14.7 TR Peak Velocity 310.6 cm/s TR Peak Gradient 38.6 mmHg TR Mean Velocity 257.1 cm/s TR Mean Gradient 29.9 mmHg TR Velocity Time Integral 118.9 cm TV Peak E Velocity 64.0 cm/s Right Atrial Pressure 3.0 mmHg Pulmonary Artery Systolic Pressu 41.6 mmHg PV Peak Velocity 100.0 cm/s RV Acceleration Time 0.1 s RV Ejection Time 0.4 s RV AcT/ET 0.3 FINDINGS Left Ventricle Normal left ventricular size and systolic function with no regional wall motion abnormalities. LVEF is 55 to 60%. Mild left ventricular hypertrophy is noted. Diastolic function is abnormal with elevated filling pressures. Right Ventricle The right ventricle is normal in size and function. Right Atrium The right atrium is mildly enlarged Left Atrium The left atrium is mildly enlarged Mitral Valve Structurally normal mitral valve without significant stenosis or prolapse. There is mild mitral regurgitation. Aortic Valve Structurally normal aortic valve without significant sclerosis or stenosis. There is no aortic regurgitation. Tricuspid Valve Structurally normal tricuspid valve without significant stenosis. There is mild tricuspid regurgitation. RVSP is 40 to 45 mmHg. This is consistent with mild pulmonary hypertension. Pulmonic Valve Structurally normal pulmonic valve without significant stenosis. There is trace pulmonic regurgitation. Pericardium There is small pericardial effusion seen. No echocardiographic features of Pericardial tamponade. Aorta Normal ascending aorta dimension. CONCLUSIONS LV systolic function is normal with EF of 55 to 60%. Diastolic function is abnormal with elevated filling pressures. Mild biatrial enlargement. Mild mitral regurgitation, mild tricuspid regurgitation. Mild pulmonary hypertension is noted. Small pericardial effusion is seen without echo features of pericardial tamponade. Compared to prior echocardiogram from 10/24/2019, small pericardial effusion is now seen. Brijesh King MD (Electronically Signed) Final Date: 04 May 2020 10:12 S
[2020-05-03 18:34] VITALS: BP 196/128; PULSE 85; O2SAT 99
[2020-05-03 19:19] VITALS: BP 200/131; PULSE 88; RESP 17; O2SAT 100
--- NOTE | 2020-05-03 20:40 | PC.NURSE ---
Dialysis nurse assumed care of pt at 1950
--- NOTE | 2020-05-03 21:54 | PM.HP ---
Providers/Chief Complaint Primary Care Provider: Mal Junior Chief Complaint: abd pain History of Present Illness Mal Gibbs is a 39 year old male past medical history of hypertension and end-stage renal disease for which he undergoes maintenance hemodialysis on Thursday and Thursday as an outpatient. He reports having missed his last session 1 days ago. C/o abdominal pain, hypertenhsive urgency upon admission. Taken for HD from ER. Parecentesis attempted but not enough fkluid. CT wiyj possible ileus. Last BM thursday, passing less flatus than usual per him Review of Systems General: Reports: 10 or more systems reviewed and unremarkable except in HPI and below Const: Denies: fever(s), chills or body aches Eyes: Denies: change in vision, blurry vision or photophobia ENMT: Reports: hoarseness; Denies: throat pain, enlarged tonsils, odynophagia or nasal congestion Card: Denies: chest pain, palpitations, irregular heart rhythm, edema, swelling of feet/ankles, lightheadedness, pre-syncope, dyspnea on exertion or orthopnea Resp: Denies: dyspnea, productive cough, non-productive cough, wheezing, stridor, pain on inspiration, change in phlegm color, hemoptysis or chest congestion GI: Denies: abdominal pain, nausea, vomiting, hematemesis, coffee ground emesis, dysphagia, heartburn, diarrhea, constipation, GI cramping, change in stool character, hematochezia or melena : Denies: flank pain, dysuria, urinary frequency, urinary urgency, urinary hesitancy or hematuria Musc: Denies: neck pain, back pain, extremity pain, joint swelling, joint warmth or deformity Neuro: Denies: headache(s), numbness in extremities, weakness in extremities, sensory changes, difficulty walking, frequent falls, dizziness, vertigo, behavioral changes, Slurred speech present or seizure-like activity Psych: Denies: anxiety, depression, suicidal ideation or homicidal ideation Endo: Denies: polyuria, polydipsia, tired all the time, cold intolerance or hot flashes [place]/Lymph: Denies: easy bruising or easy bleeding Medications/Allergies Home Medications Medication Instructions Recorded Confirmed Last Taken Type calcium acetate 667 mg tablet See Rx Instructions .ROUTE 01/24/20 05/03/20 04/12/20 History .COMPLEX tab carvedilol 25 mg tablet 12.5 mg PO Q12H tab 01/24/20 05/03/20 05/03/20 History levalbuterol tartrate 45 2 inh INHALATION Q6H PRN #15 gm 01/24/20 05/03/20 Unknown Rx mcg/actuation aerosol inhaler minoxidil 2.5 mg tablet 10 mg PO BID@08,20 tab 01/24/20 05/03/20 05/03/20 History spironolactone 25 mg tablet 25 mg PO DAILY@08 tab 01/24/20 05/03/20 05/03/20 History docusate sodium 200 mg PO BID@,04/13/20 05/03/20 05/03/20 History lisinopril 20 mg PO BID@,04/13/20 05/03/20 05/03/20 History terazosin 2 mg PO BEDTIME@20 04/13/20 05/03/20 05/02/20 History trazodone 50 mg PO BEDTIME@20 04/13/20 05/03/20 05/02/20 History Incruse Ellipta 1 inh INHALATION DAILY@0800 05/03/20 05/03/20 05/03/20 History Allergies Allergy/AdvReac Type Severity Reaction Status Date / Time No Known Allergies Allergy Verified 05/04/20 16:45 PFSH Acute PFSH: Medical History Anxiety with depression Arteriovenous fistula for hemodialysis in place, secondary COPD (chronic obstructive pulmonary disease) Current smoker Degenerative disc disease, lumbar End-stage renal disease on hemodialysis Hepatomegaly Hypertension Surgical History H/O hand surgery Amputation right 2&3 fingers 2017 History of adenoidectomy Family History Other Hypertension Denies family history of Diabetes Chronic kidney disease (CKD) Lung disease Cancer Stroke Social History Smoking and tobacco status: current every day smoker Second hand smoke exposure: Yes Smoking risk assessment/counseling performed?: Yes Alcohol intake: never Desire information about alcohol rehabilitation?: No Counseling given: No Desire information about substance/drug rehabilitation?: No Counseling given: No Adopted: No Caregiver/support person: No Lives independently: Yes Household members: spouse and family Housing: House Marital status: Number of children: 3 service: No Current occupational status: disabled Pets and animals: Yes Pets & animals: cat(s) and dog(s) History of recent travel: No Current gender identity: Male Vitals/I&O/Wt Last Vital Signs Temp 97.3 F L 05/03/20 12:57 Pulse 88 05/03/20 19:19 Resp 17 05/03/20 19:19 BP 200/131 05/03/20 19:19 Pulse Ox 100 05/03/20 19:19 05/03/20 05/03/20 05/03/20 06:59 14:59 22:59 Intake Total 50 / 50 Balance 50 / 50 Weight last 48 hrs Weight 84.822 kg Physical Exam Const: COMMON NORMALS: no acute distress, average body habitus, patient oriented x3, no limitations, healthy appearing, alert and well nourished HENMT: COMMON NORMALS: normocephalic and atraumatic HEAD & SCALP: normocephalic and atraumatic Eye: COMMON NORMALS: Equal, round and reactive pupils present, EOMs intact bilaterally, conjunctivae normal and no scleral icterus CONJUNCTIVA: Yes conjunctivae normal PUPIL: Yes Equal, round and reactive pupils present Neck/C-Spine: COMMON NORMALS: no JVD Resp: COMMON NORMALS: normal respiratory effort, No retractions, No use of accessory muscles, clear to auscultation bilaterally and percussion normal AUSCULTATION: clear to auscultation bilaterally PERCUSSION: percussion normal Cardio: COMMON NORMALS: no JVD, regular rate, regular rhythm, S1 normal heart sound present, S2 normal heart sound present, No gallops present (Cardio), No clicks present (Cardio), No murmurs present (Cardio), No rub (Cardio) and Peripheral pulses 2+ throughout RATE: regular rate RHYTHM: regular rhythm HEART SOUNDS: S1 normal heart sound present and S2 normal heart sound present PERIPHERAL PULSES: Peripheral pulses 2+ throughout GI: COMMON NORMALS: Normal to inspection, nondistended, normoactive bowel sounds present, Soft to palpation, non-tender, No hepatosplenomegaly present, no masses and no bruits PALPATION: Yes Soft to palpation and Yes No hepatosplenomegaly present Extremity: COMMON NORMALS: normal to inspection, full ROM, capillary refill normal, no joint enlargement, no clubbing, cyanosis or edema, no calf tenderness and no pedal edema Neuro: COMMON NORMALS: patient oriented x3, CN's II-XII intact bilaterally, moves all extremities, no focal motor deficits, no sensory deficits noted, deep tendon reflexes 2+ bilaterally and gait normal SENSORIUM/ORIENTATION: Yes alert Psych: COMMON NORMALS: mental status grossly normal, Normal thought process present, cooperative, normal affect, speech normal, activity/motor behavior normal, denies hallucinations, denies homicidal ideation and denies suicidal ideation SPEECH: Yes normal speech THOUGHT PROCESS: Normal thought process present Skin: COMMON NORMALS: no rashes or lesions noted, no wounds, turgor normal, no jaundice, no petechiae and no mottling GENERAL SKIN EXAM: no rashes or lesions noted and turgor normal Data : 05/04/20 04:50 05/04/20 04:50 Micro: Microbiology 05/03/20 18:55 Blood Culture - Preliminary Blood SPECIMEN COLLECTED 05/03/20 14:08 Blood Culture - Preliminary Blood SPECIMEN COLLECTED A&P Assessment and plan (1) End-stage renal disease on hemodialysis: Status: Chronic (2) Hypertension: Status: Chronic Qualifiers: Hypertension type: secondary to other renal disorders Qualified Code(s): I15.1 - Hypertension secondary to other renal disorders; N28.89 - Other specified disorders of kidney and ureter (3) Anasarca: Status: Acute (4) Ileus: Status: Acute Additional A&P Information Admit med/surg Anarsarca likely 2/2 ESRD , H Dtoday Abdominal pain, likely 2/2 anasarca, ileus on CT, bowel rest for now, montior paracentesis unsuccessful in ER may have SBP given tendernes son exam, empirioc CTX, unable to obtain specimen HTN, likely to improve post hD, add amlodipine to regimen and NitroBID, monitot Attestations Medical Necessity Statement*: expected to cross >2MN for HD, anasarca, iv abx for SBP, ileus Coding Level of Care Code Acute Ocean Lifeguard Specialist for [facility] Fwd Diagnoses End-stage renal disease on hemodialysis N18.6; Z99.2 Hypertension I15.1; N28.89 Hypertension type: secondary to other renal disorders Anasarca R60.1 Ileus K56.7
[2020-05-03 22:50] VITALS: PULSE 88; O2SAT 97
[2020-05-03 23:18] LABS: Hepatitis B Surface AB 245.1 (0-8.5); Hepatitis B Surface Antigen Non-Reactive (Nonreactive); Hepatitis C Virus Antibody Non-Reactive (Nonreactive)
--- NOTE | 2020-05-03 23:19 | PC.NURSE ---
Report called to Genesis MONTESINOS at [phone]
[2020-05-04] VITALS (10 sets, daily range): BP systolic 154–240; BP diastolic 85–141; PULSE 83–97; RESP 12–20; TEMP 36.4–37.5; O2SAT 90–100
--- NOTE | 2020-05-04 00:32 | PC.NURSE ---
dialysis completed and pt taken to [facility]
[2020-05-04] MEDS: carvedilol 12.5 mg Tablet PO ×3 (01:01→22:33)
[2020-05-04] MEDS: sennosides 8.6 mg Tablet 17.2 MG PO ×2 (01:01→19:41)
[2020-05-04] MEDS: docusate sodium 100 mg Capsule 200 MG PO ×3 (01:01→19:40)
[2020-05-04] MEDS: morphine 4 mg/mL SDV 1 mL 2 MG IVP (03:38)
[2020-05-04] MEDS: enalaprilat 1.25 mg/mL Inj 0.625 MG IVP (04:19)
[2020-05-04 05:13] LABS: Basophils # 0.1 10^3/uL (0.0-0.1); Basophils % 0.9 %; Eosinophils # 0.2 10^3/uL (0.0-0.8); Eosinophils % 2.9 %; Hemoglobin 9.5 g/dL (11.7-16.6); Lymphocytes # 0.6 10^3/uL (0.8-4.8); Lymphocytes % 8.5 %; Mean Corpuscular HGB Conc 31.7 g/dL (30.0-36.0); Mean Corpuscular Hemoglobin 29.1 pg (28.0-34.0); Mean Platelet Volume 9.6 fL (7.4-10.4); Monocytes # 0.4 10^3/uL (0.2-0.9); Monocytes % 6.5 %; Neutrophils # 5.21 10^3/uL (1.8-7.7); Neutrophils % 80.9 %; Nucleated Red Blood Cells % 0 %; Platelet Count 256 10^3/cmm (130-400); Red Blood Count 3.26 10^6/uL (4.1-5.3); White Blood Count 6.5 10^3/uL (4.0-10.0)
[2020-05-04 05:49] LABS: Calcium 9.2 mg/dL (8.5-10.5); Parathyroid Hormone 294.3 pg/mL (15-65)
[2020-05-04 05:56] LABS: Alanine Aminotransferase 8 U/L (0-41); Albumin Level 3.3 g/dL (3.5-5.2); Alkaline Phosphatase 98 IU/L (40-130); Anion Gap 15.6 (5-19); Aspartate Amino Transferase 7 U/L (0-40); Blood Urea Nitrogen 21 mg/dL (6-20); Calcium 9.4 mg/dL (8.5-10.5); Carbon Dioxide 29 mmol/L (22-29); Chloride 94 mmol/L (98-107); Glomerular Filtration Rate 10.8 mL/min (90-130); Glucose 90 mg/dL (65-115); Lipase 10 U/L (13-60); Magnesium 2.1 mg/dL (1.7-2.3); Osmolality Calculated 281 mOsm/kg (285-295); Phosphorus 5.1 mg/dL (2.5-4.5); Potassium 4.6 mmol/L (3.5-5.1); Sodium 134 mmol/L (136-145); Total Bilirubin 0.5 mg/dL (0.15-1.2); Total Protein 7.3 g/dL (6.6-8.7)
[2020-05-04 06:29] LABS: HIV 1 & 2 Antibody Non-Reactive (Non-Reactiv); HIV 1 & 2 Antigen Non-Reactive (Non-Reactiv)
[2020-05-04] MEDS: lisinopril 20 mg Tablet PO ×2 (07:15→19:41)
[2020-05-04] MEDS: minoxidil 10 mg Tablet PO (07:15)
--- NOTE | 2020-05-04 09:25 | PC.CHAP ---
Pastoral Care Encounter/Spiritual Assessment Type of Contact [] Declined lyric writer visit [] Patient/Family/Request visit [] Outpatient visit [] Follow-up visit [] Physician referral [] Code/Alert [] Routine visit [] Staff referral [] Actively dying [x] Patient sleeping [] Family support [] [] Out of room [] Palliative care [] [] Receiving care in room [] Pre-surgical visit [] Trauma [] Long length of stay [] ICU visit [] Other: Relational/Emotional Strength [] Patient feels connected with others/family/visitors/staff [] Distress [] Loneliness/isolation [] Abandonment Spirituality of Patient [] Person of Ct [] Attends Protestant of their Ct [] Believes in Prayer [] Reads Bible or Taoism materials [] There are Spiritual issues to be addressed Patent Attorney Interventions [] Prayer [] Active listening [] Non-anxious presence [] Spiritual/emotional support [] Crisis/trauma care [] Spiritual counseling [] Bereavement support [] Provided bereavement packet [] Provided Bible/devotional materials [] Provided toy/stuffed animal, coloring book to patient or family member [] Provided Communion [] Anointing/[place] [] Salvation [] Completed spiritual assessment [] Other: Impact on Illness or Injury [] Angry [] Fearful [] Anxious [] Often cries [] Exhaustion [] Unable to work [] Unable to attend gnosticist [] Unable to walk/stand [] Unable to read [] Unable to drive [] Unable to eat/drink [] Unable to sleep [] Unable to be with family [] Patient intubated [] Other: Summary Time spent with patient
[2020-05-04] MEDS: calcium acetate 667 mg Capsule 1334 MG PO ×3 (09:39→17:26)
[2020-05-04] MEDS: spironolactone 25 mg Tablet PO (09:39)
[2020-05-04] MEDS: amlodipine 10 mg Tablet PO (09:40)
[2020-05-04] MEDS: pantoprazole DR 40 mg Tablet PO (09:40)
[2020-05-04] MEDS: cefTRIAXone 1,000 MG in sodium chloride 0.9% (plus) 50 ML 100 MG IV (09:40)
--- NOTE | 2020-05-04 09:46 | PC.NURSE ---
Told nurse about high blood pressure. Manual:220/110 Automatic: 211/141
[2020-05-04] MEDS: morphine 4 mg/mL SDV 1 mL IVP (09:48)
[2020-05-04] MEDS: nitroglycerin 1 gm/inch oint Pkt 1 INCH TOPICAL ×2 (10:18→17:25)
--- NOTE | 2020-05-04 11:23 | PM.PN ---
Subjective Subjective: Interval history: Feels a little better since admission, dialyzed last night. On ice chip diet. Denies abdominal pain. No nausea and vomiting on my exam. Vitals/I&O/Wt Last Vital Signs Temp 99.0 F 05/04/20 07:49 Pulse 89 05/04/20 07:49 Resp 16 05/04/20 09:48 BP 211/141 05/04/20 07:49 Pulse Ox 93 05/04/20 07:49 05/03/20 05/04/20 05/04/20 22:59 06:59 14:59 Intake Total 50 / 50 100 / 150 Balance 50 / 50 100 / 150 Weight last 48 hrs Weight 84.822 kg Physical Exam Narrative: EXAM NARRATIVE: Constitutional: Awake, conversant HEENT: Wet mucosa, no jvp, non icteric Lungs: Bilaterally clear without discernible wheeze or rales in all lung zones CVS: S1 S2, no murmurs Abdo: Soft, BS ok Ext 4: 1+ edema, peripheral perfusion with no cyanosis Neurological: Grossly non-focal Data : 05/04/20 04:50 05/04/20 04:50 Micro: Microbiology 05/03/20 18:55 Blood Culture - Preliminary Blood SPECIMEN COLLECTED 05/03/20 14:08 Blood Culture - Preliminary Blood SPECIMEN COLLECTED A&P Additional A&P Information 1. ESRD - plan for dialysis in the am, 3K, UF 3-4L - than continue MWF schedule - dose meds for eGFR < 15 on dialysis 2. HTN - Bp high, recalcitrant - DC minixidil; it is assoc with pericardial/pleural effusions - will change Amlodipine to high dose Nifedipine ER 90mg po BID - aggressive UF will help 3. Anemia mild, follow for now 4. Abdo pain - mgmt per medical team; ? SBP, on Rocephin - ice chips - Ileus Thank you for consultation, it is a pleasure to follow these cases with you Exam and interview performed with aid of bedside RN using telemedicine Time spent 20 min inc > 50% of time in face to face counseling Caden Salazar MD [facility] [phone] Attestations Medical Necessity Statement*: eval for ESRD Coding Level of Care Code Acute Phlebotomy Manager for Chg Fwd
--- NOTE | 2020-05-04 11:46 | PC.NURSE ---
Told nurse about high blood pressure. Automatic: 181/100
[2020-05-04] MEDS: NIFEdipine ER (24 hr) 30 mg Tablet 90 MG PO ×2 (11:53→17:24)
--- NOTE | 2020-05-04 15:57 | PM.CONSULT ---
Providers/Reason For Consult Consulting Physican/Specialty*: Bhavik Hurst MD Reason for Consult*: Abdominal pain assocaited with constipation Attending Physician: Tiarra Vlilegas MD Primary Care Provider: Mal Junior History of Present Illness History of Present Illness Chief Complaint: My belly hurts History of present illness:Mr Mal Gibbs is a 39 year old male with multiple medical comorbidities in the form of COPD. End-stage renal disease on hemodialysis via left upper extremity. Hepatomegaly and history of hypertension. Patient on chronic hemodialysis Thursday,Thursday and Fridays. Has been complaining of abdominal pain for the past few months or so,he reports that his last bowel movement was last Thursday as well as passing gas. Patient is admitted to the hospital service because of the worsening abdominal discomfort and he did undergo multiple imaging studies as shown below. CT scan of the abdomen and pelvis done in December 01 2019 1. Moderate bilateral renal atrophy with no obstruction. Atrophy has progressed since 08/01/2018. 2. Marked hepatomegaly and mild splenomegaly. New since 08/01/2018. 3. Small, new RIGHT pleural effusion with bibasilar groundglass attenuation which is probably pneumonitis. 4. Small amount of fluid around the RIGHT lobe of the liver and around the superior pole RIGHT kidney. 5. Bilateral inguinal lymph nodes with the largest measuring 12 mm on the RIGHT. May be reactive. Increase in size since 08/01/2018. CT scan of the abdomen and pelvis 04/13/2020 IMPRESSION: 1. Diffuse severe development of anasarca and a small amount of ascites with mesenteric edema. 2. Mild but increasing bilateral pleural effusions. 3. Small pericardial effusion. 4. No GI tract obstruction. There is mild fluid-filled distal loops of small bowel but at this time no obstruction. CT scan of the abdomen and pelvis 05/03/2020: Moderate sized left posterior pleural effusion with small posterior right pleural effusion. Visualized lower lung zones are clear. The heart is enlarged. Pericardial effusion noted. Effusion measures a maximum of 1.6 cm at greatest thickness along the posterior right heart border. Large amount of abdominal and pelvic ascites. Hepatosplenomegaly. The liver measures 23 cm in greatest dimension, the spleen 15 cm. The abdominal aorta is normal in caliber. Bilateral atrophic kidneys. Normal bilateral adrenal glands. Anasarca. The pancreas is unremarkable. The stomach appears to be grossly intact. No calcified stones in the gallbladder. No lymphadenopathy or free air. Mild fluid distention of several small bowel loops in the left abdomen which may represent localized ileus. There is gas and stool in the colon. Normal appendix. No lymphadenopathy in the abdomen or pelvis. Intact urinary bladder. Enlarged bilateral inguinal lymph nodes. The largest nodes measure about 1.8 cm at greatest short axis dimension. Some lymph nodes demonstrate fatty replacement. No destructive bone lesions. Bilateral pars defect of L5 with grade 1 spondylolisthesis of L5 on S1. CT/CT abdomen pelvis w con* [id number] IMPRESSION: 1. Bilateral pleural effusions most marked on the right. Pericardial effusion. Cardiac enlargement. 2. Extensive abdominal and pelvic ascites. Anasarca. 3. Hepatosplenomegaly. Bilateral renal atrophy. 4. Fluid distention of several small bowel loops in the left abdomen probably representing localized ileus. No sign of maida bowel obstruction or pneumoperitoneum. 5. Bilateral inguinal lymphadenopathy. Patient denies any nausea or vomiting or fevers yet he does have some chills he was tested recently for COVID-19 and was negative for that,patient reports also that he had been receiving MiraLAX but without obvious results General surgery was consulted for further evaluation of patient's abdominal pain and chronic constipation. Review of Systems General: Reports: 10 or more systems reviewed and unremarkable except in HPI and below Meds/Allergies Home Medications and Allergies Home Medications Medication Instructions Recorded Confirmed Last Taken Type calcium acetate 667 mg tablet See Rx Instructions .ROUTE 01/24/20 05/03/20 04/12/20 History .COMPLEX tab carvedilol 25 mg tablet 12.5 mg PO Q12H tab 01/24/20 05/03/20 05/03/20 History levalbuterol tartrate 45 2 inh INHALATION Q6H PRN #15 gm 01/24/20 05/03/20 Unknown Rx mcg/actuation aerosol inhaler minoxidil 2.5 mg tablet 10 mg PO BID@ tab 01/24/20 05/03/20 05/03/20 History spironolactone 25 mg tablet 25 mg PO DAILY@08 tab 01/24/20 05/03/20 05/03/20 History docusate sodium 200 mg PO BID@,20 04/13/20 05/03/20 05/03/20 History lisinopril 20 mg PO BID@08,20 04/13/20 05/03/20 05/03/20 History terazosin 2 mg PO BEDTIME@04/13/20 05/03/20 05/02/20 History trazodone 50 mg PO BEDTIME@04/13/20 05/03/20 05/02/20 History Incruse Ellipta 1 inh INHALATION DAILY@0800 05/03/20 05/03/20 05/03/20 History Allergies Allergy/AdvReac Type Severity Reaction Status Date / Time No Known Allergies Allergy Verified 05/04/20 16:45 Current Medications Current Medications Generic Name Dose Route Start Last Admin Trade Name Freq PRN Reason Stop Dose Admin Calcium Acetate 1,334 mg 05/04/20 08:00 05/04/20 11:52 Calcium Acetate 667 Mg Capsule PO 1,334 mg TIDWM ARTEM Administration Carvedilol 12.5 mg 05/03/20 22:45 05/04/20 09:43 Carvedilol 12.5 Mg Tablet PO 12.5 mg Q12H ARTEM Administration Docusate Sodium 200 mg 05/03/20 22:30 05/04/20 09:40 Docusate Sodium 100 Mg Capsule PO 200 mg BID@ ARTEM Administration Ceftriaxone Sodium 1,000 mg/ 50 mls @ 100 mls/hr 05/04/20 09:00 05/04/20 09:40 Sodium Chloride IV 100 mls/hr DAILY ARTEM Administration Protocol Lisinopril 20 mg 05/04/20 08:00 05/04/20 07:15 Lisinopril 20 Mg Tablet PO 20 mg BID@ ARTEM Administration Nifedipine 90 mg 05/04/20 12:00 05/04/20 11:53 Nifedipine Er (24 Hr) 30 Mg Tablet PO 90 mg BID ARTEM Administration Non-Formulary Medication 1 inh 05/04/20 08:00 05/04/20 09:38 Umeclidinium [Incruse Ellipta] INHALATION Not Given DAILY@0800 [facility] Pantoprazole Sodium 40 mg 05/04/20 09:00 05/04/20 09:[address] 40 Mg Tablet PO 40 mg DAILY ARTEM Administration Senna 17.2 mg 05/03/20 22:15 05/04/20 01:01 Sennosides 8.6 Mg Tablet PO 17.2 mg BEDTIME ARTEM Administration Spironolactone 25 mg 05/04/20 08:00 05/04/20 09:39 Spironolactone 25 Mg Tablet PO 25 mg DAILY@08 ARTEM Administration PFSH Acute PFSH: Medical History Anxiety with depression Arteriovenous fistula for hemodialysis in place, secondary COPD (chronic obstructive pulmonary disease) Current smoker Degenerative disc disease, lumbar End-stage renal disease on hemodialysis Hepatomegaly Hypertension Surgical History H/O hand surgery Amputation right 2&3 fingers 2017 History of adenoidectomy Family History Other Hypertension Denies family history of Diabetes Chronic kidney disease (CKD) Lung disease Cancer Stroke Social History Smoking and tobacco status: current every day smoker Second hand smoke exposure: Yes Smoking risk assessment/counseling performed?: Yes Alcohol intake: never Desire information about alcohol rehabilitation?: No Counseling given: No Desire information about substance/drug rehabilitation?: No Counseling given: No Adopted: No Caregiver/support person: No Lives independently: Yes Household members: spouse and family Housing: House Marital status: Number of children: 3 service: No Current occupational status: disabled Pets and animals: Yes Pets & animals: cat(s) and dog(s) History of recent travel: No Current gender identity: Male Vitals/I&O/Wt Last Vital Signs Temp 99.5 F 05/04/20 11:42 Pulse 85 05/04/20 11:42 Resp 17 05/04/20 11:42 BP 181/100 05/04/20 11:42 Pulse Ox 92 05/04/20 11:42 05/04/20 05/04/20 05/04/20 06:59 14:59 22:59 Intake Total 100 / 150 Balance 100 / 150 Weight last 48 hrs Weight 187 lb Physical Exam Narrative: EXAM NARRATIVE: Patient is conscious alert oriented X3 BMI 25 Head and neck examination PERRLA no masses no cervical lymphadenopathy no jaundice Cardiac examination audible S1-S2 no murmurs no gallops no arrhythmias Chest is clear bilateral,abscence of Rhonchi or wheezes,no surgical emphysema Abdomen diffusley tender nondistended soft no organomegaly guarding or rigidity/no signs of peritonitis Anasarca with associated bilateral soft pitting edema of the lower extremity LUE AV hemodialysis graft in place without complications Data Micro: Micro: Microbiology 05/04/20 04:50 Cryptococcal Antig en - Final Blood 05/03/20 18:55 Blood Culture - Pr eliminary Blood SPECIMEN [facility] 05/03/20 14:08 Blood Culture - Pr eliminary Blood SPECIMEN [facility] A&P Assessment and plan (1) Constipation: After thorough history physical examination and reviewing the chart and reviewing images of the CT scan of the abdomen pelvis and with my personal interpretation. I do not see indication for any surgical intervention at this point yet I do believe that the patient is constipated and will require a bowel regimen. I will start the patient on mag citrate and will see how he would perform once he start having bowel movements we will start him on clear liquid diet and then advance as tolerated, I will hold on milk and molasses enema for now. Repeated physical examination We will continue coordinating care with Dr. Brewster Assurance and education All questions have been answered and all concerns have been addressed to patient's satisfaction. Thank you for consulting general surgery to participate taking care Mr. Gibbs Status: Acute Consult Attestations Medical Necessity Statement: Continue hospitalization for medical and surgical care Time Spent in Patient Care: 16 - 35 minutes (>than 50% of time spent in counselling and/or direct pt care on unit). Coding Level of Care Code Acute Marble Cleaner for Cristi Diane Diagnoses Constipation K59.00
[2020-05-04] MEDS: magnesium citrate Btl 296 mL 150 ML PO (17:24)
--- NOTE | 2020-05-04 18:26 | P.PN_ITS ---
Subjective Subjective: Interval history: conitnues to c/o pain. states cant pass flatus. HD tomorrow Medications: Reviewed: Yes Vitals/I&O/Wt Last Vital Signs Temp 98.2 F 05/04/20 16:00 Pulse 94 05/04/20 16:00 Resp 16 05/04/20 16:00 BP 171/86 05/04/20 16:00 Pulse Ox 91 05/04/20 16:00 05/04/20 05/04/20 05/04/20 06:59 14:59 22:59 Intake Total 100 / 150 30 / 30 Balance 100 / 150 30 / 30 Weight last 48 hrs Weight 84.822 kg Physical Exam Narrative: EXAM NARRATIVE: GEN: Awake, alert and oriented, no acute distress CVS: S1S2 N RS: CTA B/L Abd: Soft, distended, tender FOOT TENDER: no focal neuro deficits Data : 05/04/20 04:50 05/04/20 04:50 Micro: Microbiology 05/03/20 14:08 Blood Culture - Preliminary Blood NEGATIVE TO DATE 05/04/20 04:50 Cryptococcal Antigen - Final Blood 05/03/20 18:55 Blood Culture - Preliminary Blood SPECIMEN COLLECTED A&P Assessment and plan (1) End-stage renal disease on hemodialysis: Status: Chronic (2) Hypertension: Status: Chronic Qualifiers: Hypertension type: secondary to other renal disorders Qualified Code(s): I15.1 - Hypertension secondary to other renal disorders; N28.89 - Other specified disorders of kidney and ureter (3) Anasarca: Status: Acute (4) Ileus: Status: Acute Additional A&P Information Admit med/surg Anarsarca likely 2/2 ESRD , HD tomorrow Abdominal pain, likely 2/2 anasarca, ileus on CT, bowel rest for now, montior, surgery consult paracentesis unsuccessful in ER may have SBP given tendernes son exam, empirioc CTX, unable to obtain specimen HTN, likely to improve post hD, add amlodipine to regimen, add also imdur 30mg po qd full code dvt ppx: heparin Attestations Medical Necessity Statement*: ileus, awaiting return of bowel function Coding Level of Care Code Acute Operations Liaison for [facility] Fwd Diagnoses End-stage renal disease on hemodialysis N18.6; Z99.2 Hypertension I15.1; N28.89 Hypertension type: secondary to other renal disorders Anasarca R60.1 Ileus K56.7
[2020-05-04] MEDS: heparin 5,000 unit/mL INJ 1 mL 5000 UNIT SUBCUT (19:41)
[2020-05-04] MEDS: trazodone 50 mg Tablet PO (22:33)
[2020-05-05 03:29] VITALS: BP 146/75; PULSE 83; RESP 18; TEMP 36.7; O2SAT 94
[2020-05-05 06:09] LABS: Basophils # 0.1 10^3/uL (0.0-0.1); Basophils % 1.6 %; Eosinophils # 0.3 10^3/uL (0.0-0.8); Eosinophils % 5.6 %; Hematocrit 29.4 % (42.0-52.0); Hemoglobin 9.3 g/dL (11.7-16.6); Lymphocytes # 0.9 10^3/uL (0.8-4.8); Lymphocytes % 20.4 %; Mean Corpuscular HGB Conc 31.6 g/dL (30.0-36.0); Mean Corpuscular Hemoglobin 29.3 pg (28.0-34.0); Mean Corpuscular Volume 92.7 fL (80-94); Mean Platelet Volume 9.9 fL (7.4-10.4); Monocytes # 0.4 10^3/uL (0.2-0.9); Monocytes % 9.7 %; Neutrophils # 2.78 10^3/uL (1.8-7.7); Neutrophils % 62.5 %; Nucleated Red Blood Cells % 0 %; Platelet Count 266 10^3/cmm (130-400); Red Blood Count 3.17 10^6/uL (4.1-5.3); Red Cell Distribution Width 16.8 % (12.1-15.1); White Blood Count 4.5 10^3/uL (4.0-10.0)
[2020-05-05 06:13] LABS: Alanine Aminotransferase < 5 U/L (0-41); Albumin Level 3.3 g/dL (3.5-5.2); Alkaline Phosphatase 88 IU/L (40-130); Anion Gap 17.4 (5-19); Aspartate Amino Transferase 6 U/L (0-40); Blood Urea Nitrogen 31 mg/dL (6-20); Calcium 9.6 mg/dL (8.5-10.5); Carbon Dioxide 29 mmol/L (22-29); Chloride 91 mmol/L (98-107); Globulin 3.6 g/dL (1.3-4.6); Glomerular Filtration Rate 7.4 mL/min (90-130); Glucose 68 mg/dL (65-115); Magnesium 2.3 mg/dL (1.7-2.3); Osmolality Calculated 281 mOsm/kg (285-295); Potassium 4.4 mmol/L (3.5-5.1); Sodium 133 mmol/L (136-145); Total Bilirubin 0.4 mg/dL (0.15-1.2); Total Protein 6.9 g/dL (6.6-8.7)
[2020-05-05 06:54] VITALS: BP 140/61; PULSE 81; RESP 18; TEMP 36.4; O2SAT 90
--- NOTE | 2020-05-05 07:47 | P.PN_ITS ---
Subjective Subjective: Interval history: Attempted to ingest mag citrate yesterday when the patient vomited and still did not have any bowel movement. Patient expressed his interest to start some broth this can stimulate him to have a bowel movement. Otherwise no acute events overnight Vitals/I&O/Wt Last Vital Signs Temp 97.6 F 05/05/20 06:54 Pulse 81 05/05/20 06:54 Resp 18 05/05/20 06:54 BP 140/61 05/05/20 06:54 Pulse Ox 90 05/05/20 06:54 05/04/20 05/05/20 05/05/20 22:59 06:59 14:59 Intake Total 120 / 150 Output Total 800 / 800 Balance -680 / -650 Weight last 48 hrs Weight 187 lb Physical Exam Narrative: EXAM NARRATIVE: Patient is conscious alert oriented X3 BMI 25 Head and neck examination PERRLA no masses no cervical lymphadenopathy no jaundice Abdomen relatively less diffusely tender mildly distended soft no organomegaly guarding or rigidity/no signs of peritonitis Left upper extremity AV graft in place with good bruit and thrill Data : 05/05/20 04:20 05/05/20 04:20 Micro: Microbiology 05/03/20 18:55 Blood Culture - Preliminary Blood NEGATIVE TO DATE 05/03/20 14:08 Blood Culture - Preliminary Blood NEGATIVE TO DATE 05/04/20 04:50 Cryptococcal Antigen - Final Blood A&P Assessment and plan (1) Constipation: We will start the patient slowly on clear liquid diet and if that did not stimulate him to have a bowel movement will order GoLYTELY mixed with Powerade or Gatorade to help him have a bowel movement Encourage ambulation Repeated physical examination We will continue coordinating care with Dr. Brewster Assurance and education All questions have been answered and all concerns have been addressed to patient's satisfaction. Thank you for consulting general surgery to participate taking care Mr. Gibbs Status: Acute Attestations Medical Necessity Statement*: Continue hospitalization for medical and surgical care Time Spent in Patient Care: (>than 50% of time spent in counselling and/or direct pt care on unit) . Coding Level of Care Code Acute General Milling Superintendent for Cristi Diane Diagnoses Constipation K59.00
[2020-05-05] MEDS: NIFEdipine ER (24 hr) 30 mg Tablet 90 MG PO ×2 (08:06→17:36)
[2020-05-05] MEDS: pantoprazole DR 40 mg Tablet PO (08:06)
[2020-05-05] MEDS: isosorbide mononitrate ER 30 mg Tablet PO (08:06)
[2020-05-05] MEDS: lisinopril 20 mg Tablet PO ×2 (08:07→20:20)
[2020-05-05] MEDS: cefTRIAXone 1,000 MG in sodium chloride 0.9% (plus) 50 ML 100 MG IV (08:07)
[2020-05-05] MEDS: spironolactone 25 mg Tablet PO (08:07)
[2020-05-05] MEDS: nitroglycerin 1 gm/inch oint Pkt 1 INCH TOPICAL (08:07)
[2020-05-05] MEDS: calcium acetate 667 mg Capsule 1334 MG PO ×3 (08:07→17:36)
[2020-05-05] MEDS: docusate sodium 100 mg Capsule 200 MG PO ×2 (08:07→20:20)
[2020-05-05 08:43] VITALS: PULSE 81; RESP 18; O2SAT 94
--- NOTE | 2020-05-05 09:36 | PC.NURSE ---
Pt taken to dialysis via bed.
--- NOTE | 2020-05-05 11:53 | P.PN_ITS ---
Subjective Subjective: Interval history: Seen and examined on dialysis today. So far tolerating it well, his blood pressure has come down nicely to 140/61. Still not having any bowel movements or passing gas. Mild abdominal discomfort. Now he has progressed to clear liquid diet. No uremic symptoms. Medications: Reviewed: Yes Vitals/I&O/Wt Last Vital Signs Temp 97.6 F 05/05/20 06:54 Pulse 81 05/05/20 08:43 Resp 18 05/05/20 08:43 BP 140/61 05/05/20 06:54 Pulse Ox 94 05/05/20 08:43 05/04/20 05/05/20 05/05/20 22:59 06:59 14:59 Intake Total 30 / 80 120 / 200 1200 / 1200 Output Total 800 / 800 Balance 30 / 80 -680 / -600 1200 / 1200 Weight last 48 hrs Weight 84.822 kg Physical Exam Narrative: EXAM NARRATIVE: Constitutional: Awake, conversant HEENT: Wet mucosa, no jvp, non icteric Lungs: Bilaterally clear without discernible wheeze or rales in all lung zones CVS: S1 S2, no murmurs Abdo: Soft, BS ok Ext 4: 1+ edema, peripheral perfusion with no cyanosis Neurological: Grossly non-focal Data : 05/05/20 04:20 05/05/20 04:20 Micro: Microbiology 05/03/20 18:55 Blood Culture - Preliminary Blood NEGATIVE TO DATE 05/03/20 14:08 Blood Culture - Preliminary Blood NEGATIVE TO DATE 05/04/20 04:50 Cryptococcal Antigen - Final Blood A&P Additional A&P Information 1. ESRD - Seen and examined on dialysis 3K, UF 3-4L - then continue MWF schedule - dose meds for eGFR < 15 on dialysis 2. HTN - Bp better controlled - Imdur, Nifedipine ER 90mg po BID - aggressive UF will help 3. Anemia mild, follow for now 4. Abdo pain - mgmt per medical team; ? SBP, on Rocephin - clear liquid diet - Ileus Thank you for consultation, it is a pleasure to follow these cases with you Exam and interview performed with aid of bedside RN using telemedicine Time spent 20 min inc > 50% of time in face to face counseling Caden Salazar MD [facility] [phone] Attestations Medical Necessity Statement*: eval for ESRD mgmt Coding Level of Care Code Acute Hand Roller for Cristi Diane
--- NOTE | 2020-05-05 12:31 | P.PN_ITS ---
Subjective Subjective: Interval history: Blood pressure is better controlled today after addition on Imdur and changing amlodipine to nifedipine, HD today, still complains of ongoing abdominal pain, attempted mag citrate this morning but ended up vomiting, trial of GoLYTELY later today. Wishes to advance diet, clears up and started Medications: Reviewed: Yes Vitals/I&O/Wt Last Vital Signs Temp 97.6 F 05/05/20 06:54 Pulse 81 05/05/20 08:43 Resp 18 05/05/20 08:43 BP 140/61 05/05/20 06:54 Pulse Ox 94 05/05/20 08:43 05/04/20 05/05/20 05/05/20 22:59 06:59 14:59 Intake Total 30 / 80 120 / 200 1200 / 1200 Output Total 800 / 800 Balance 30 / 80 -680 / -600 1200 / 1200 Weight last 48 hrs Weight 84.822 kg Physical Exam Narrative: EXAM NARRATIVE: GEN: Awake, alert and oriented, no acute distress CVS: S1S2 N RS: CTA B/L Abd: Soft, distended, discomfort to palpation THREADER: no focal neuro deficits Data : 05/05/20 04:20 05/05/20 04:20 Micro: Microbiology 05/03/20 18:55 Blood Culture - Preliminary Blood NEGATIVE TO DATE 05/03/20 14:08 Blood Culture - Preliminary Blood NEGATIVE TO DATE 05/04/20 04:50 Cryptococcal Antigen - Final Blood A&P Assessment and plan (1) End-stage renal disease on hemodialysis: Continue dialysis Thursday Appreciate renal recommendations Status: Chronic (2) Hypertension: Continue nifedipine 90 mg p.o. twice daily Continue lisinopril 20 mg p.o. twice daily Continue spironolactone 25, 25 mg p.o. daily Continue Imdur 30 mg daily, discontinue Nitro-Bid today, will increase Imdur if needed after removal of Nitro-Bid. Continue carvedilol 12.5 mg p.o. every 12 hours Status: Chronic Qualifiers: Hypertension type: secondary to other renal disorders Qualified Code(s): I15.1 - Hypertension secondary to other renal disorders; N28.89 - Other specified disorders of kidney and ureter (3) Anasarca: Likely related to end-stage renal disease, HD ongoing Due to possibility of SBP, patient is currently on empiric doses of ceftriaxone, plan for 5 days course total. Status: Acute (4) Ileus: Likely related to constipation, trial of GoLYTELY today Appreciate surgical recommendations Status: Acute Additional A&P Information full code dvt ppx: heparin Attestations Medical Necessity Statement*: Ongoing need for HD, ileus, abdominal pain, titration of blood pressure medications, monitor for response Coding Level of Care Code Acute Dinkey Engine Mechanic for [facility] Fwd Diagnoses End-stage renal disease on hemodialysis N18.6; Z99.2 Hypertension I15.1; N28.89 Hypertension type: secondary to other renal disorders Anasarca R60.1 Ileus K56.7
[2020-05-05] MEDS: HYDROcodone-acetaminophen 5-325 mg Tablet 1 TAB PO ×2 (12:58→23:22)
[2020-05-05] MEDS: peg /e-lyte soln 4,000 mL Btl 1500 ML PO (14:36)
[2020-05-05] MEDS: carvedilol 12.5 mg Tablet PO ×2 (14:36→23:19)
[2020-05-05 15:13] VITALS: BP 144/63; PULSE 84; RESP 18; TEMP 36.6; O2SAT 92
[2020-05-05] MEDS: heparin 5,000 unit/mL INJ 1 mL 5000 UNIT SUBCUT (17:36)
[2020-05-05 19:36] VITALS: PULSE 79; RESP 19; O2SAT 95
[2020-05-05 20:00] VITALS: BP 161/84; PULSE 78; RESP 17; TEMP 36.8; O2SAT 95
[2020-05-05] MEDS: sennosides 8.6 mg Tablet 17.2 MG PO (20:19)
[2020-05-05] MEDS: trazodone 50 mg Tablet PO (20:20)
[2020-05-06] VITALS (7 sets, daily range): BP systolic 131–163; BP diastolic 70–94; PULSE 69–76; RESP 16–18; TEMP 36.3–36.9; O2SAT 93–98
[2020-05-06 05:24] LABS: Basophils # 0.1 10^3/uL (0.0-0.1); Basophils % 1.5 %; Eosinophils # 0.3 10^3/uL (0.0-0.8); Eosinophils % 6.9 %; Hematocrit 29.9 % (42.0-52.0); Hemoglobin 9.5 g/dL (11.7-16.6); Lymphocytes % 23.8 %; Mean Corpuscular HGB Conc 31.8 g/dL (30.0-36.0); Mean Corpuscular Hemoglobin 29.1 pg (28.0-34.0); Mean Corpuscular Volume 91.7 fL (80-94); Mean Platelet Volume 9.8 fL (7.4-10.4); Monocytes # 0.4 10^3/uL (0.2-0.9); Monocytes % 8.8 %; Neutrophils % 58.8 %; Nucleated Red Blood Cells % 0 %; Platelet Count 249 10^3/cmm (130-400); Red Blood Count 3.26 10^6/uL (4.1-5.3); Red Cell Distribution Width 16.4 % (12.1-15.1); White Blood Count 4.1 10^3/uL (4.0-10.0)
[2020-05-06] MEDS: heparin 5,000 unit/mL INJ 1 mL 5000 UNIT SUBCUT ×2 (05:41→17:54)
[2020-05-06 05:52] LABS: Alanine Aminotransferase < 5 U/L (0-41); Albumin Level 3.2 g/dL (3.5-5.2); Alkaline Phosphatase 88 IU/L (40-130); Anion Gap 15.1 (5-19); Aspartate Amino Transferase 8 U/L (0-40); Blood Urea Nitrogen 17 mg/dL (6-20); Calcium 9.1 mg/dL (8.5-10.5); Carbon Dioxide 28 mmol/L (22-29); Chloride 91 mmol/L (98-107); Globulin 3.7 g/dL (1.3-4.6); Glomerular Filtration Rate 10.6 mL/min (90-130); Glucose 93 mg/dL (65-115); Magnesium 2.2 mg/dL (1.7-2.3); Osmolality Calculated 271 mOsm/kg (285-295); Phosphorus 3.3 mg/dL (2.5-4.5); Potassium 4.1 mmol/L (3.5-5.1); Sodium 130 mmol/L (136-145); Total Bilirubin 0.3 mg/dL (0.15-1.2); Total Protein 6.9 g/dL (6.6-8.7)
--- NOTE | 2020-05-06 06:31 | PM.PN ---
Subjective Subjective: Interval history: Patient had 2 relatively large bowel movements overnight and feels better in response to GoLYTELY Vitals/I&O/Wt Last Vital Signs Temp 97.9 F 05/06/20 03:29 Pulse 76 05/06/20 03:29 Resp 16 05/06/20 03:29 BP 138/70 05/06/20 03:29 Pulse Ox 94 05/06/20 03:29 05/05/20 05/05/20 05/06/20 14:59 22:59 06:59 Intake Total 1200 / 1200 600 / 1800 1400 / 3200 Output Total 600 / 600 Balance 600 / 600 600 / 1200 1400 / 2600 Physical Exam Narrative: EXAM NARRATIVE: Patient is conscious alert oriented X3 BMI 24.7 Head and neck examination PERRLA no masses no cervical lymphadenopathy no jaundice Abdomen less tender nondistended soft no organomegaly guarding or rigidity/no signs of peritonitis Data : 05/06/20 04:25 05/06/20 04:25 A&P Assessment and plan (1) Constipation: From surgical standpoint of view we will start the patient on soft GI renal diet Encourage ambulation If patient continues to do well with that regard can be discharged from surgery side High-fiber diet Metamucil twice a day/Benefiber Assurance and education All questions have been answered and all concerns have been addressed to patient's satisfaction. Thank you for consulting general surgery to participate taking care Mr. Gibbs Status: Acute Attestations Medical Necessity Statement*: Inpatient hospitalization for medical and surgical care Time Spent in Patient Care: (>than 50% of time spent in counselling and/or direct pt care on unit). Coding Level of Care Code Acute Leisure Travel Agent for Cristi Diane Diagnoses Constipation K59.00
--- NOTE | 2020-05-06 06:41 | PC.NURSE ---
Patient stated to Dr. Hurst with this nurse that he had two bowel movements through the night. Neither one witnessed by staff.
[2020-05-06] MEDS: docusate sodium 100 mg Capsule 200 MG PO ×2 (08:07→20:03)
[2020-05-06] MEDS: calcium acetate 667 mg Capsule 1334 MG PO ×3 (08:07→17:20)
[2020-05-06] MEDS: pantoprazole DR 40 mg Tablet PO (08:07)
[2020-05-06] MEDS: spironolactone 25 mg Tablet PO (08:07)
[2020-05-06] MEDS: NIFEdipine ER (24 hr) 30 mg Tablet 90 MG PO ×2 (08:07→17:20)
[2020-05-06] MEDS: lisinopril 20 mg Tablet PO ×2 (08:07→09:00)
[2020-05-06] MEDS: isosorbide mononitrate ER 30 mg Tablet PO (08:07)
[2020-05-06] MEDS: cefTRIAXone 1,000 MG in sodium chloride 0.9% (plus) 50 ML 100 MG IV (08:11)
--- NOTE | 2020-05-06 08:22 | PM.PN ---
Subjective Subjective: Interval history: feels better. 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 Medications: Reviewed: Yes Medication Review Details: Current Medications Hydrocodone Bitart/Acetaminophen (Hydrocodone-Acetaminophen 5-325 Mg Tablet) 1 tab PO Q4H PRN PRN Reason: MODERATE PAIN Last Admin: 05/05/20 23:22 Dose: 1 tab Documented by: Bisacodyl (Bisacodyl 5 Mg Tablet) 10 mg PO DAILY PRN PRN Reason: CONSTIPATION Calcium Acetate (Calcium Acetate 667 Mg Capsule) 1,334 mg PO TIDWM [facility] Last Admin: 05/06/20 08:07 Dose: 1,334 mg Documented by: Carvedilol (Carvedilol 12.5 Mg Tablet) 12.5 mg PO Q12H [facility] Last Admin: 05/05/20 23:19 Dose: 12.5 mg Documented by: Docusate Sodium (Docusate Sodium 100 Mg Capsule) 200 mg PO BID@, [facility] Last Admin: 05/06/20 08:07 Dose: 200 mg Documented by: Heparin Sodium (Beef Lung) (Heparin 5,000 Unit/Ml Inj 1 Ml) 5,000 unit SUBCUT Q12H [facility] Last Admin: 05/06/20 05:41 Dose: 5,000 unit Documented by: Hydromorphone HCl (Hydromorphone 1 Mg/Ml Inj 1 Ml) 0.4 mg IVP Q8H PRN PRN Reason: PAIN Ceftriaxone Sodium 1,000 mg/ (Sodium Chloride) 50 mls @ 100 mls/hr IV DAILY [facility]; Protocol Last Admin: 05/06/20 08:11 Dose: 100 mls/hr Documented by: Albumin Human (Albumin) 12.5 gm in 50 mls @ 60 mls/hr IV PRN PRN PRN Reason: Hypotension and/or symptomatic Isosorbide Mononitrate (Isosorbide Mononitrate Er 30 Mg Tablet) 30 mg PO DAILY [facility] Last Admin: 05/06/20 08:07 Dose: 30 mg Documented by: Lisinopril (Lisinopril 20 Mg Tablet) 20 mg PO BID@08,20 [facility] Last Admin: 05/06/20 08:07 Dose: 20 mg Documented by: Naloxone HCl (Naloxone 0.4 Mg/Ml Sdv) 0.1 mg IVP Q2M PRN PRN Reason: OPIATERV Nifedipine (Nifedipine Er (24 Hr) 30 Mg Tablet) 90 mg PO BID [facility] Last Admin: 05/06/20 08:07 Dose: 90 mg Documented by: Non-Formulary Medication (Levalbuterol Tartrate [Xopenex Hfa]) 2 inh INHALATION Q6H PRN PRN Reason: shortness of breath or wheezing Non-Formulary Medication (Umeclidinium [Incruse Ellipta]) 1 inh INHALATION DAILY@0800 [facility] Last Admin: 05/05/20 14:30 Dose: Not Given Documented by: Ondansetron HCl (Ondansetron 2 Mg/Ml Sdv 2 Ml) 4 mg IVP Q8H PRN PRN Reason: vomiting, or N/V if npo Ondansetron HCl (Ondansetron 2 Mg/Ml Sdv 2 Ml) 4 mg IVP Q6H PRN PRN Reason: NAUSEA AND VOMITING Pantoprazole Sodium (Pantoprazole Dr 40 Mg Tablet) 40 mg PO DAILY [facility] Last Admin: 05/06/20 08:07 Dose: 40 mg Documented by: Senna (Sennosides 8.6 Mg Tablet) 17.2 mg PO BEDTIME [facility] Last Admin: 05/05/20 20:19 Dose: 17.2 mg Documented by: Spironolactone (Spironolactone 25 Mg Tablet) 25 mg PO DAILY@08 [facility] Last Admin: 05/06/20 08:07 Dose: 25 mg Documented by: Terazosin HCl (Terazosin 1 Mg Capsule) 2 mg PO BEDTIME@20 [facility] Last Admin: 05/05/20 20:20 Dose: 2 mg Documented by: Trazodone HCl (Trazodone 50 Mg Tablet) 50 mg PO BEDTIME@20 [facility] Last Admin: 05/05/20 20:20 Dose: 50 mg Documented by: Vitals/I&O/Wt Last Vital Signs Temp 97.9 F 05/06/20 08:00 Pulse 71 05/06/20 08:00 Resp 18 05/06/20 08:00 BP 142/88 05/06/20 08:00 Pulse Ox 97 05/06/20 08:00 05/05/20 05/06/20 05/06/20 22:59 06:59 14:59 Intake Total 600 / 1850 1400 / 3250 Balance 600 / 1250 1400 / 2650 Physical Exam Narrative: EXAM NARRATIVE: comfortable in bed, NARd, VSS heent- nc/at, eomi, anicteric neck no jvp lungs- clear heart- no rub abd soft, +BS, tender, HSM ext b/l edema in feet LUE AVF neuro- a,a, o x3 pulses poor Data : 05/06/20 04:25 05/06/20 04:25 A&P Additional A&P Information 1. ESRD - needs to go to all of his dialysis sessions -continue MWF schedule - dose meds for eGFR < 15 on dialysis 2. HTN - Bp better controlled - taper down meds- as difficult for outpt compliance- attempt to put on daily meds, not bid or tid - aggressive UF will help 3. Anemia-epo on hd 4. Abdo pain - per surgery -is improving 5. pericardial and pleural effusions -echo- CONCLUSIONS LV systolic function is normal with EF of 55 to 60%. Diastolic function is abnormal with elevated filling pressures. Mild biatrial enlargement. Mild mitral regurgitation, mild tricuspid regurgitation. Mild pulmonary hypertension is noted. Small pericardial effusion is seen without echo features of pericardial tamponade. Compared to prior echocardiogram from 10/24/2019, small pericardial effusion is now seen. 6. pth 294 Exam and interview performed with aid of bedside RN using telemedicine Attestations Medical Necessity Statement*: esrd, htn, abd pain Time Spent in Patient Care: 16 - 35 minutes Coding Level of Care Code Acute [employer] for [employer] Diane
--- NOTE | 2020-05-06 10:15 | PC.SOCIAL ---
Pg 2 IMM Explained to pt Pg 2 IMM. No questions voiced. Provided pt a copy. Signed, dated, & timed a copy & placed in chart.
--- NOTE | 2020-05-06 10:54 | P.PN_ITS ---
Subjective Subjective: Interval history: Had 2 large BM overnight, diet advanved, still c/o abdominal pain but improving. 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 twice daily Continue lisinopril 20 mg p.o. twice daily Continue 25 mg p.o. daily Continue Imdur 30 mg daily Continue carvedilol 12.5 mg p.o. every 12 hours Status: Chronic Qualifiers: Hypertension type: secondary to other renal disorders Qualified Code(s): I15.1 - Hypertension secondary to other renal disorders; N28.89 - Other specified disorders of kidney and ureter (3) Anasarca: Likely related to end-stage renal disease, HD ongoing Due to possibility of SBP, patient is currently on empiric doses of ceftriaxone, plan for 5 days course total. Status: Acute (4) Ileus: Likely related to constipation, 2 Bm overnight after golytely, diet advanced Appreciate surgical recommendations Status: Acute Additional A&P Information full code dvt ppx: heparin Attestations Medical Necessity Statement*: monitor bowel function, HD tomorrow w Coding Level of Care Code Acute Qc Analyst for [facility] Fwd Diagnoses End-stage renal disease on hemodialysis N18.6; Z99.2 Hypertension I15.1; N28.89 Hypertension type: secondary to other renal disorders Anasarca R60.1 Ileus K56.7
[2020-05-06] MEDS: carvedilol 12.5 mg Tablet PO ×2 (11:02→22:51)
[2020-05-06] MEDS: HYDROcodone-acetaminophen 5-325 mg Tablet 1 TAB PO ×2 (15:23→20:02)
--- NOTE | 2020-05-06 17:53 | PC.NURSE ---
Patient reported to nurse that he had another bowel movement. This was not visualized by nurse herself. Patient's abdomen still distended but has good bowel sounds.
[2020-05-06] MEDS: sennosides 8.6 mg Tablet 17.2 MG PO (20:03)
[2020-05-06] MEDS: trazodone 50 mg Tablet PO (20:03)
[2020-05-07 04:00] VITALS: BP 157/86; PULSE 76; RESP 17; TEMP 36.9; O2SAT 94
[2020-05-07] MEDS: heparin 5,000 unit/mL INJ 1 mL 5000 UNIT SUBCUT (06:50)
[2020-05-07 07:29] VITALS: BP 162/91; PULSE 68; RESP 18; TEMP 36.8; O2SAT 98
[2020-05-07] MEDS: lisinopril 20 mg Tablet PO (08:03)
[2020-05-07] MEDS: HYDROcodone-acetaminophen 5-325 mg Tablet 1 TAB PO ×2 (08:03→13:18)
[2020-05-07] MEDS: isosorbide mononitrate ER 30 mg Tablet PO (08:03)
[2020-05-07] MEDS: NIFEdipine ER (24 hr) 30 mg Tablet 90 MG PO (08:03)
[2020-05-07] MEDS: spironolactone 25 mg Tablet PO (08:03)
[2020-05-07] MEDS: calcium acetate 667 mg Capsule 1334 MG PO ×2 (08:12→13:17)
--- NOTE | 2020-05-07 09:42 | P.PN_ITS ---
Subjective Subjective: Interval history: seen on HD. feels better. eating, +BM, dec abd pain Medications: Reviewed: Yes Medication Review Details: Current Medications Hydrocodone Bitart/Acetaminophen (Hydrocodone-Acetaminophen 5-325 Mg Tablet) 1 tab PO Q4H PRN PRN Reason: MODERATE PAIN Last Admin: 05/07/20 08:03 Dose: 1 tab Documented by: Bisacodyl (Bisacodyl 5 Mg Tablet) 10 mg PO DAILY PRN PRN Reason: CONSTIPATION Calcium Acetate (Calcium Acetate 667 Mg Capsule) 1,334 mg PO TIDWM [facility] Last Admin: 05/07/20 08:12 Dose: 1,334 mg Documented by: Carvedilol (Carvedilol 12.5 Mg Tablet) 12.5 mg PO Q12H [facility] Last Admin: 05/06/20 22:51 Dose: 12.5 mg Documented by: Docusate Sodium (Docusate Sodium 100 Mg Capsule) 200 mg PO BID@08,20 [facility] Last Admin: 05/07/20 08:15 Dose: Not Given Documented by: Heparin Sodium (Beef Lung) (Heparin 5,000 Unit/Ml Inj 1 Ml) 5,000 unit SUBCUT Q12H [facility] Last Admin: 05/07/20 06:50 Dose: 5,000 unit Documented by: Hydromorphone HCl (Hydromorphone 1 Mg/Ml Inj 1 Ml) 0.4 mg IVP Q8H PRN PRN Reason: PAIN Ceftriaxone Sodium 1,000 mg/ (Sodium Chloride) 50 mls @ 100 mls/hr IV DAILY [facility]; Protocol Last Admin: 05/07/20 08:14 Dose: Not Given Documented by: Albumin Human (Albumin) 12.5 gm in 50 mls @ 60 mls/hr IV PRN PRN PRN Reason: Hypotension and/or symptomatic Isosorbide Mononitrate (Isosorbide Mononitrate Er 30 Mg Tablet) 30 mg PO DAILY [facility] Last Admin: 05/07/20 08:03 Dose: 30 mg Documented by: Lisinopril (Lisinopril 20 Mg Tablet) 20 mg PO DAILY [facility] Last Admin: 05/07/20 08:03 Dose: 20 mg Documented by: Naloxone HCl (Naloxone 0.4 Mg/Ml Sdv) 0.1 mg IVP Q2M PRN PRN Reason: OPIATERV Nifedipine (Nifedipine Er (24 Hr) 30 Mg Tablet) 90 mg PO BID [facility] Last Admin: 05/07/20 08:03 Dose: 90 mg Documented by: Non-Formulary Medication (Levalbuterol Tartrate [Xopenex Hfa]) 2 inh INHALATION Q6H PRN PRN Reason: shortness of breath or wheezing Non-Formulary Medication (Umeclidinium [Incruse Ellipta]) 1 inh INHALATION DAILY@0800 [facility] Last Admin: 05/05/20 14:30 Dose: Not Given Documented by: Ondansetron HCl (Ondansetron 2 Mg/Ml Sdv 2 Ml) 4 mg IVP Q8H PRN PRN Reason: vomiting, or N/V if npo Ondansetron HCl (Ondansetron 2 Mg/Ml Sdv 2 Ml) 4 mg IVP Q6H PRN PRN Reason: NAUSEA AND VOMITING Pantoprazole Sodium (Pantoprazole Dr 40 Mg Tablet) 40 mg PO DAILY [facility] Last Admin: 05/07/20 08:15 Dose: Not Given Documented by: Senna (Sennosides 8.6 Mg Tablet) 17.2 mg PO BEDTIME [facility] Last Admin: 05/06/20 20:03 Dose: 17.2 mg Documented by: Spironolactone (Spironolactone 25 Mg Tablet) 25 mg PO DAILY@08 [facility] Last Admin: 05/07/20 08:03 Dose: 25 mg Documented by: Terazosin HCl (Terazosin 1 Mg Capsule) 2 mg PO BEDTIME@20 [facility] Last Admin: 05/06/20 20:23 Dose: 2 mg Documented by: Trazodone HCl (Trazodone 50 Mg Tablet) 50 mg PO BEDTIME@20 [facility] Last Admin: 05/06/20 20:03 Dose: 50 mg Documented by: Vitals/I&O/Wt Last Vital Signs Temp 98.3 F 05/07/20 07:29 Pulse 68 05/07/20 07:29 Resp 18 05/07/20 07:29 BP 162/91 05/07/20 07:29 Pulse Ox 98 05/07/20 07:29 05/06/20 05/07/20 05/07/20 22:59 06:59 14:59 Intake Total 840 / 1440 Output Total Balance 840 / 1440 - / 1438 Physical Exam Narrative: EXAM NARRATIVE: comfortable in bed, NARD, VS noted- BP elevated heent- nc/at, eomi, anicteric neck no jvp lungs- clear heart- no rub abd soft, +BS, less tender, HSM ext b/l edema in feet LUE AVF neuro- a,a, o x3 pulses poor Data : 05/06/20 04:25 05/06/20 04:25 A&P Additional A&P Information 1. ESRD - needs to go to all of his dialysis sessions -continue MWF schedule -on HD now- 4 hrs, 3k, remove 3.5l - dose meds for eGFR < 15 on dialysis 2. HTN - Bp better controlled - taper down meds- as difficult for outpt compliance- attempt to put on daily meds, not bid or tid - aggressive UF will help 3. Anemia-epo on hd 4. Abdo pain and ileus - per surgery -is improving 5. pericardial and pleural effusions -echo- CONCLUSIONS LV systolic function is normal with EF of 55 to 60%. Diastolic function is abnormal with elevated filling pressures. Mild biatrial enlargement. Mild mitral regurgitation, mild tricuspid regurgitation. Mild pulmonary hypertension is noted. Small pericardial effusion is seen without echo features of pericardial tamponade. Compared to prior echocardiogram from 10/24/2019, small pericardial effusion is now seen. -hope to improve w/ HD and fluid removal. however, pt needs to come to all dialysis sessions 6. 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
--- NOTE | 2020-05-07 14:24 | PC.RESP ---
Smoking Cessation and Pulmonary Rehab information sent to patient.
--- NOTE | 2020-05-07 14:30 | P.DS_ITS ---
Discharge Providers Date of Admission: 05/03/20 16:49 Date of Discharge: May 07, 2020 Attending Provider at Admission: Emanuel Nation MD Attending Provider at Discharge: Tiarra Villegas MD Primary Care Provider: Mal Junior Diagnoses at Discharge Discharge Diagnosis (1) End-stage renal disease on hemodialysis: Status: Chronic (2) Hypertension: Status: Chronic Qualifiers: Hypertension type: secondary to other renal disorders Qualified Code(s): I15.1 - Hypertension secondary to other renal disorders; N28.89 - Other specified disorders of kidney and ureter (3) Anasarca: Status: Acute (4) Ileus: Status: Acute Reason for Visit Reason for Visit: [facility] Hospital Course Hospital Course Mal Gibbs is a 39 year old male past medical history of hypertension and end-stage renal disease for which he undergoes maintenance hemodialysis on Thursday and Thursday as an outpatient. He was admitted on May 03 with chief complaints of abdominal pain and hypertensive urgency. He did undergo dialysis on the day of admission. A paracentesis was attempted but there was not enough fluid to be safely removed. CT of the abdomen and pelvis was performed which showed possibility of ileus, he did report having constipation and difficulty passing flatus. He was evaluated by general surgery and his constipation did improve after being administered GoLYTELY. At the time of discharge he is advised to continue Metamucil and a high-fiber diet to prevent constipation. He has been able to have bowel movements prior to discharge. Abdominal pain is improved. Because SBP could not be excluded conclusively, he did receive an empiric course of ceftriaxone for 5 days while being admitted. For his hypertensive urgency, blood pressure medicines were adjusted. He is continued on his home doses of carvedilol at 12.5 mg p.o. every 12 hours, lisinopril 20 mg p.o. daily, spironolactone 25 mg p.o. daily, nifedipine 90 mg p.o. twice daily and Imdur 60 mg p.o. daily has been newly added with better blood pressure control. Home medications were arranged to be delivered to bedside and he is encouraged to comply with his blood pressure regimen. Reasons for missed dialysis were discussed and extensively with the patient. He states the most common reason why he misses dialysis is due to lack of transport. Usually he drives himself or his drives him, however due to abdominal pain recently he has not felt up to driving. I did offer to arrange ready transport/medical transportation to and fro to his dialysis facility, however he declined this saying he has tried this in the past but does not like the way that those drivers usually drive and feels unsafe with them. Physical Exam Narrative: EXAM NARRATIVE: GEN: Awake, alert and oriented, no acute distress CVS: S1S2 N RS: CTA B/L Abd: Soft, distended, improved discomfort , bs+ DIRECTOR OF ANNUAL GIVING: no focal neuro deficits Discharge Data Data Completed and Pending: Completed Studies During Hospitalization Category Date Time Status CT abdomen pelvis w con* [id number] Stat Cat Scan 05/03/20 13:45 Completed CV echo complete* [id number] Urgent Ultrasound 05/03/20 17:54 Completed US abdomen limite d [id number] Stat Ultrasound 05/03/20 16:21 Completed Pending at discharge Category Date Time Status Blood Culture Sta t Lab 05/03/20 18:55 Results Vitals: Last Vital Signs Temp 98.3 F 05/07/20 07:29 Pulse 68 05/07/20 07:29 Resp 18 05/07/20 07:29 BP 162/91 05/07/20 07:29 Pulse Ox 98 05/07/20 07:29 Discharge Plan Discharge Patient Disposition: Home Condition: Stable Prescriptions: New nifedipine 30 mg Tablet Extended Release 24hr 90 mg PO BID 30 Days Qty: 60 RF: 0 Senna Lax 8.6 mg Tablet 17.2 mg PO BEDTIME 10 Days Qty: 10 RF: 0 hydrocodone-acetaminophen 5-325 mg Tablet 1 tab PO Q4H PRN (Reason: Moderate Pain) 5 Days Qty: 20 RF: 0 isosorbide mononitrate 30 mg Tablet Extended Release 24 Hr 60 mg PO DAILY 30 Days Qty: 30 RF: 0 pantoprazole 40 mg Tablet,Delayed Release (Dr/Ec) 40 mg PO DAILY 30 Days Qty: 30 RF: 0 bisacodyl 5 mg Tablet,Delayed Release (Dr/Ec) 10 mg PO DAILY PRN (Reason: Constipation) 10 Days Qty: 10 RF: 0 Continued carvedilol 25 mg tablet 12.5 mg PO Q12H RF: 0 spironolactone 25 mg tablet 25 mg PO DAILY@08 RF: 0 calcium acetate 667 mg tablet See Rx Instructions .ROUTE .COMPLEX RF: 0 levalbuterol tartrate [Xopenex HFA] 45 mcg/actuation HFA aerosol inhaler 2 inh INHALATION Q6H PRN (Reason: shortness of breath or wheezing) Qty: 15 RF: 2 trazodone 50 mg Tablet 50 mg PO BEDTIME@20 RF: 0 terazosin 2 mg Capsule 2 mg PO BEDTIME@20 RF: 0 docusate sodium 100 mg Capsule 200 mg PO BID@08,20 RF: 0 lisinopril 20 mg tablet 20 mg PO BID@08,20 RF: 0 Incruse Ellipta 62.5 mcg/actuation blister with device 1 inh INHALATION DAILY@0800 RF: 0 Discontinued minoxidil 2.5 mg tablet 10 mg PO BID@08,20 RF: 0 Discharge Orders: Discharge Order (Routine); Ordered 05/07/20 Ordered By: Tiarra Villegas Referrals: Mal Junior [Primary Care Provider] - 05/15/20 9:00 am Discharge Activity: Resume usual activity Patient Instructions: Nifedipine (By mouth), Hydrocodone/Acetaminophen (By mouth), Laxative, Stimulant (By mouth), Isosorbide Mononitrate (By mouth), Pantoprazole (By mouth), Bisacodyl (By mouth), Constipation (DC), Dialysis Diet (DC), Chronic Hypertension (DC), Ileus (DC) Discharge Attestations Time Spent in Discharge Care*: greater than 30 min Specific Discharge Activities: documenting/other paperwork and evaluating patient/reviewing data Quality Metrics Clinical Quality Measures During this hospital stay, did patient experience: None 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
[2020-05-07 14:42] VITALS: BP 162/91; PULSE 68; RESP 18; TEMP 36.8; O2SAT 98
== END 2020-05-07 14:43 | disposition home or self-care (01) | DRG 388 ==
LOC: ER 13:03 → MEDSURG 21:58
PROVIDERS: Internal Medicine Nephrology; Admitting Provider Internal Medicine; Emergency Provider Family Medicine; PCP Family Medicine; Visit Provider Student in an Organized Health Care Education/Training Program
DX: K56.7 Ileus, unspecified (principal); N18.6 End stage renal disease; I12.0 Hypertensive chronic kidney disease with stage 5 chronic kidney disease or end stage renal disease; I31.3 Pericardial effusion (noninflammatory); J90 Pleural effusion, not elsewhere classified; Z99.2 Dependence on renal dialysis; F41.8 Other specified anxiety disorders; J44.9 Chronic obstructive pulmonary disease, unspecified; F17.210 Nicotine dependence, cigarettes, uncomplicated; M51.36 Other intervertebral disc degeneration, lumbar region; R16.0 Hepatomegaly, not elsewhere classified; Z89.021 Acquired absence of right finger(s); D63.1 Anemia in chronic kidney disease; K59.00 Constipation, unspecified; I16.0 Hypertensive urgency; I08.1 Rheumatic disorders of both mitral and tricuspid valves; I27.20 Pulmonary hypertension, unspecified
CPT/HCPCS: 12345; 36415; 74177; 76705; 80053; 82310; 82550; 83690; 83735; 83970; 84100; 85025; 86140; 86706; 86803; 87040; 87327; 87340; 87806; 90935; 93306; 96372; 99283; J0696; J1644; J2270; J2405; J3490; Q3014

== ENCOUNTER 2020-09-13 04:22 | Inpatient (IN) | payer MEDICARE, MEDICAID, SELFPAY ==
[2020-09-13] VITALS (33 sets, daily range): BP systolic 138–224; BP diastolic 82–134; PULSE 71–109; RESP 15–22; TEMP 36.8–37.2; O2SAT 77–100; BMI 25.6
--- NOTE | 2020-09-13 04:24 | XRR_ITS ---
PROCEDURE INFORMATION: Exam: XR Chest Exam date and time: 09/13/2020 4:25 AM Age: 40 years old Clinical indication: Dyspnea and shortness of breath; Patient HX: SOB and dyspnea TECHNIQUE: Imaging protocol: XR of the chest. Views: 1 view. COMPARISON: CR XR chest 1V portable [id number] 04/13/2020 2:25 PM FINDINGS: Lungs: Mildly increased lung markings, suggestive of mild pulmonary congestion. No focal consolidation. Pleural spaces: No pleural effusion or pneumothorax. Heart/Mediastinum: Stable mildly enlarged heart. Bones/joints: Unremarkable. XR/XR chest 1V portable [id number] IMPRESSION: Possible mild pulmonary congestion.
--- NOTE | 2020-09-13 04:43 | ECG_ITS ---
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 Measurements Intervals [place] Rate: 80 P: 54 MS: 186 QRS: 63 QRSD: 112 T: 62 QT: 413 QTc: 477 Interpretive Statements SINUS RHYTHM MODERATE INTRAVENTRICULAR CONDUCTION DELAY [110+ ms QRS DURATION] Compared to ECG 10/23/2019 05:11:16 Intraventricular conduction delay now present Sinus tachycardia no longer present Electronically Signed On 09-13-2020 19:26:25 CDT by Brijesh King M.D. [email or web address] [employer] hospitalVyyknselect [id number]
[2020-09-13] MEDS: HYDROmorphone 1 mg/mL INJ 1 mL IVP ×2 (04:55→20:50)
[2020-09-13] MEDS: ondansetron 2 mg/ML SDV 2 mL 4 MG IVP (04:55)
[2020-09-13 05:00] LABS: Basophils # 0.1 10^3/uL (0.0-0.1); Basophils % 0.8 %; Eosinophils # 0.2 10^3/uL (0.0-0.8); Eosinophils % 2.5 %; Hematocrit 25.3 % (42.0-52.0); Hemoglobin 7.9 g/dL (11.7-16.6); Lymphocytes # 0.7 10^3/uL (0.8-4.8); Lymphocytes % 7.5 %; Mean Corpuscular HGB Conc 31.2 g/dL (30.0-36.0); Mean Corpuscular Hemoglobin 25.1 pg (28.0-34.0); Mean Corpuscular Volume 80.3 fL (80-94); Mean Platelet Volume 10.3 fL (7.4-10.4); Monocytes # 0.7 10^3/uL (0.2-0.9); Monocytes % 8.6 %; Neutrophils # 6.94 10^3/uL (1.8-7.7); Neutrophils % 80.3 %; Nucleated Red Blood Cells % 0 %; Platelet Count 384 10^3/cmm (130-400); Red Blood Count 3.15 10^6/uL (4.1-5.3); Red Cell Distribution Width 19.1 % (12.1-15.1); White Blood Count 8.7 10^3/uL (4.0-10.0)
[2020-09-13] MEDS: labetalol 5 mg/mL SDV 20mL 20 MG IVP ×2 (05:06→05:21)
--- NOTE | 2020-09-13 05:22 | W.ED.SOB ---
Documented by User: Dayana Nunez MD 09/13/20 05:36 HPI - SOB/Dyspnea General: Chief Complaint: Shortness of Breath/Dyspnea Stated Complaint: difficulty breathing, back pain Time Seen by Provider: 09/13/20 04:24 Source: patient Mode of arrival: ambulatory Limitations: no limitations History of Present Illness: HPI Narrative: 40-year-old male has a history of chronic uncontrolled hypertension leading to end-stage renal disease and is currently on dialysis. Patient receives dialysis Thursday. He did receive his dialysis yesterday. States that he also is chronic back pain and had increasing back pain throughout the night. States pain is sharp nature and rates it a 7 out of 10. He states he is also had some shortness of breath. He denies any fevers or cough. Patient denies any chest pain. Patient currently is 97% on room air. He is quite hypertensive here. Associated symptoms: Deny abdominal pain, chest pain, fever(s), nausea or vomiting Review of Systems Const: Denies: fever(s), chills, body aches or change in appetite Eyes: Denies: blurry vision or eye discomfort ENMT: Denies: throat pain or dental pain Card: Denies: chest pain Resp: Reports: dyspnea GI: Denies: abdominal pain, nausea, vomiting or diarrhea : Denies: dysuria Musc: Reports: back pain Skin/Breast: Denies: rash Neuro: Denies: headache(s) Psych: Denies: depression Jefferson/Lymph: Denies: easy bruising All/Imm: Denies: urticaria PFSH ED PFSH: Medical History Anxiety with depression Arteriovenous fistula for hemodialysis in place, secondary COPD (chronic obstructive pulmonary disease) Current smoker Degenerative disc disease, lumbar End-stage renal disease on hemodialysis Hepatomegaly Hypertension Surgical History H/O hand surgery Amputation right 2&3 fingers 2017 History of adenoidectomy Family History Other Hypertension Denies family history of Diabetes Chronic kidney disease (CKD) Lung disease Cancer Stroke Social History Smoking and tobacco status: current every day smoker Second hand smoke exposure: Yes Smoking risk assessment/counseling performed?: Yes Alcohol intake: never Desire information about alcohol rehabilitation?: No Counseling given: No Desire information about substance/drug rehabilitation?: No Counseling given: No Adopted: No Caregiver/support person: No Lives independently: Yes Household members: spouse and family Housing: House Marital status: Number of children: 3 service: No Current occupational status: disabled Pets and animals: Yes Pets & animals: cat(s) and dog(s) History of recent travel: No Current gender identity: Male Physical Exam Const: COMMON NORMALS: no acute distress and patient oriented x3 GENERAL APPEARANCE: disheveled, frail appearing and appears older than stated age HENMT: COMMON NORMALS: normocephalic and atraumatic HEAD & SCALP: normocephalic and atraumatic Eye: COMMON NORMALS: Equal, round and reactive pupils present and EOMs intact bilaterally PUPIL: Yes Equal, round and reactive pupils present Neck/C-Spine: COMMON NORMALS: full ROM and supple Chest: COMMONS NORMALS: normal inspection of the chest and normal palpation of entire chest wall Resp: COMMON NORMALS: normal respiratory effort, No retractions, No use of accessory muscles and clear to auscultation bilaterally AUSCULTATION: clear to auscultation bilaterally Cardio: COMMON NORMALS: regular rate, regular rhythm and No murmurs present (Cardio) RATE: regular rate RHYTHM: regular rhythm GI: COMMON NORMALS: Normal to inspection, nondistended, normoactive bowel sounds present, Soft to palpation, non-tender and no masses PALPATION: Yes Soft to palpation Extremity: COMMON NORMALS: full ROM NARRATIVE EXTREMITY EXAM: 2+ edema Neuro: COMMON NORMALS: patient oriented x3, moves all extremities and no focal motor deficits Psych: COMMON NORMALS: mental status grossly normal, Normal thought process present and cooperative THOUGHT PROCESS: Normal thought process present Skin: COMMON NORMALS: no rashes or lesions noted and no wounds GENERAL SKIN EXAM: no rashes or lesions noted Course Vital Signs: Vital signs: Vital Signs Temperature 98.9 F 09/13/20 04:37 Pulse Rate 82 09/13/20 06:58 Respiratory Rate 21 H 09/13/20 06:58 Blood Pressure 166/101 09/13/20 06:58 Pulse Oximetry 93 09/13/20 06:58 MDM - SOB/Dyspnea Lab Data: Labs: Lab Results 09/13/20 09/13/20 09/13/20 Range/Units 04:51 04:51 04:51 WBC 8.7 (4.0-10.0) 10^3/ uL RBC 3.15 L (4.1-5.3) 10^6/u L Hgb 7.9 L (11.7-16.6) g/dL Hct 25.3 L (42.0-52.0) % MCV 80.3 (80-94) fL MCH 25.1 L (28.0-34.0) pg MCHC 31.2 (30.0-36.0) g/dL RDW 19.1 H (12.1-15.1) % Plt Count 384 (130-400) 10^3/c mm MPV 10.3 (7.4-10.4) fL Neut % (Auto) 80.3 % Lymph % (Auto) 7.5 % Dixon % (Auto) 8.6 % Eos % (Auto) 2.5 % Baso % (Auto) 0.8 % Neut # (Auto) 6.94 (1.8-7.7) 10^3/u L Lymph # (Auto) 0.7 L (0.8-4.8) 10^3/u L Dixon # (Auto) 0.7 (0.2-0.9) 10^3/u L Eos # (Auto) 0.2 (0.0-0.8) 10^3/u L Baso # (Auto) 0.1 (0.0-0.1) 10^3/u L Nucleated RBC % (a uto) 0 % Nucleated RBCs # 0.0 /100WBC PT 17.90 H (12.1-14.9) SECO NDS INR 1.44 H (0.8-1.2) Sodium 133 L (136-145) mmol/L Potassium 3.9 (3.5-5.1) mmol/L Chloride 90 L (98-107) mmol/L Carbon Dioxide 34 H (22-29) mmol/L Anion Gap 12.9 (5-19) BUN 21 H (6-20) mg/dL Creatinine 4.2 H (0.7-1.2) mg/dL GFR Calculation 16.0 L (90-130) mL/min Glucose 90 (65-115) mg/dL Calculated Osmolal ity 279 L (285-295) mOsm/k g Calcium 8.9 (8.5-10.5) mg/dL Total Bilirubin 0.8 (0.15-1.2) mg/dL AST 11 (0-40) U/L ALT 6 (0-41) U/L Alkaline Phosphata se 150 H (40-130) IU/L Troponin T Baselin e (0-15) ng/L Troponin T 120 Min [place] (0-15) ng/L Delta Troponin T (0-10) ABS# NT-Pro-B Natriuret Pep > 17828 H (0-125) pg/mL Total Protein 8.5 (6.6-8.7) g/dL Albumin 3.3 L (3.5-5.2) g/dL Globulin 5.2 H (1.3-4.6) g/dL 09/13/20 09/13/20 Range/Units 04:51 06:20 WBC (4.0-10.0) 10^3/ uL RBC (4.1-5.3) 10^6/u L Hgb (11.7-16.6) g/dL Hct (42.0-52.0) % MCV (80-94) fL MCH (28.0-34.0) pg MCHC (30.0-36.0) g/dL RDW (12.1-15.1) % Plt Count (130-400) 10^3/c mm MPV (7.4-10.4) fL Neut % (Auto) % Lymph % (Auto) % Dixon % (Auto) % Eos % (Auto) % Baso % (Auto) % Neut # (Auto) (1.8-7.7) 10^3/u L Lymph # (Auto) (0.8-4.8) 10^3/u L Dixon # (Auto) (0.2-0.9) 10^3/u L Eos # (Auto) (0.0-0.8) 10^3/u L Baso # (Auto) (0.0-0.1) 10^3/u L Nucleated RBC % (a uto) % Nucleated RBCs # /100WBC PT (12.1-14.9) SECO NDS INR (0.8-1.2) Sodium (136-145) mmol/L Potassium (3.5-5.1) mmol/L Chloride (98-107) mmol/L Carbon Dioxide (22-29) mmol/L Anion Gap (5-19) BUN (6-20) mg/dL Creatinine (0.7-1.2) mg/dL GFR Calculation (90-130) mL/min Glucose (65-115) mg/dL Calculated Osmolal ity (285-295) mOsm/k g Calcium (8.5-10.5) mg/dL Total Bilirubin (0.15-1.2) mg/dL AST (0-40) U/L ALT (0-41) U/L Alkaline Phosphata se (40-130) IU/L Troponin T Baselin e 102 H* (0-15) ng/L Troponin T 120 Min [place] 81.66 H (0-15) ng/L Delta Troponin T -20.34 L (0-10) ABS# NT-Pro-B Natriuret Pep (0-125) pg/mL Total Protein (6.6-8.7) g/dL Albumin (3.5-5.2) g/dL Globulin (1.3-4.6) g/dL Imaging Data^: CXR: Attestation: I personally reviewed and interpreted this imaging study as follows: Radiologist's impression: [address] [address] XRay Report Signed Patient: Mal Gibbs V Unit #: [id number] : 1980 Age/Sex: 40 / M ADM Date: 09/13/20 Loc: ER Room/Bed: Attending Dr: Ordering Provider/Ordering MD: Dayana Nunez MD Date of Service: 09/13/20 Procedure(s): XR chest 1V portable [id number] Accession Number(s): [id number] Report Number: [id number] PROCEDURE INFORMATION: Exam: XR Chest Exam date and time: 09/13/2020 4:25 AM Age: 40 years old Clinical indication: Dyspnea and shortness of breath; Patient HX: SOB and dyspnea TECHNIQUE: Imaging protocol: XR of the chest. Views: 1 view. COMPARISON: CR XR chest 1V portable [id number] 04/13/2020 2:25 PM FINDINGS: Lungs: Mildly increased lung markings, suggestive of mild pulmonary congestion. No focal consolidation. Pleural spaces: No pleural effusion or pneumothorax. Heart/Mediastinum: Stable mildly enlarged heart. Bones/joints: Unremarkable. XR/XR chest 1V portable [id number] IMPRESSION: Possible mild pulmonary congestion. EKG Data^: EKG 1: Attestation: I personally reviewed and interpreted this EKG as follows: EKG Interpretation Date: 09/13/20 EKG interpretation time: 05:33 Interpretation: nsr hr [address] or t wave abnormalities qrs 112 qtc 448 Discharge Plan Discharge Patient Disposition: Admitted As Inpatient Clinical Impression: Hypertension, End-stage renal disease on hemodialysis, Congestive heart failure, Anemia Condition: Stable Sign Out Sign Out Data: Patient Sign Out occurred on 09/13/20 at 06:10. Patient's care was discussed, and care was transferred from to Pato Rivera DO. Coding Level of Care Code ED Pharmacy Affairs Assistant for Chg Fwd Exam Comprehensive Documented by User: Pato Rivera DO 09/13/20 07:45 HPI - SOB/Dyspnea General: Chief Complaint: Shortness of Breath/Dyspnea Stated Complaint: difficulty breathing, back pain Time Seen by Provider: 09/13/20 04:24 History of Present Illness: HPI Narrative: Care assumed a change of shift. 40-year-old male history of end-stage renal disease and COPD comes in with accelerated hypertension shortness of breath. Increasing orthopnea. Patient gets dialysis Thursday he did receive dialysis yesterday he reports he went from 93.2 kg to 88.1 kg with his dialysis run yesterday. He denies any chest pain. He is unsure about if he has been taking all of his medications. MD elicited complaint: shortness of breath Pertinent past history: congestive heart failure and other (ESRD) Onset (ago): day(s) Timing: constant Severity: severe Exacerbating factors: lying flat and exertion Relieving factors: oxygen, rest and upright position Known history of: congestive heart failure and other (ESRD) [facility] ED PFSH: Medical History Anxiety with depression Arteriovenous fistula for hemodialysis in place, secondary COPD (chronic obstructive pulmonary disease) Current smoker Degenerative disc disease, lumbar End-stage renal disease on hemodialysis Hepatomegaly Hypertension Surgical History H/O hand surgery Amputation right 2&3 fingers 2017 History of adenoidectomy Family History Other Hypertension Denies family history of Diabetes Chronic kidney disease (CKD) Lung disease Cancer Stroke Social History Smoking and tobacco status: current every day smoker Second hand smoke exposure: Yes Smoking risk assessment/counseling performed?: Yes Alcohol intake: never Desire information about alcohol rehabilitation?: No Counseling given: No Desire information about substance/drug rehabilitation?: No Counseling given: No Adopted: No Caregiver/support person: No Lives independently: Yes Household members: spouse and family Housing: House Marital status: Number of children: 3 service: No Current occupational status: disabled Pets and animals: Yes Pets & animals: cat(s) and dog(s) History of recent travel: No Current gender identity: Male Physical Exam Const: COMMON NORMALS: no acute distress GENERAL APPEARANCE: cooperative and comfortable ORIENTATION/CONSCIOUSNESS: Yes awake, Yes oriented to person, Yes oriented to place and Yes oriented to time HENMT: COMMON NORMALS: normocephalic, atraumatic and hearing grossly normal bilaterally HEAD & SCALP: normocephalic and atraumatic Neck/C-Spine: COMMON NORMALS: no JVD Resp: AUSCULTATION: crackles and diminished lung sounds Cardio: COMMON NORMALS: no JVD, regular rate, regular rhythm and No murmurs present (Cardio) RATE: regular rate RHYTHM: regular rhythm GI: COMMON NORMALS: Soft to palpation and No hepatosplenomegaly present AUSCULTATION: Yes normoactive bowel sounds PALPATION: Yes Soft to palpation, No Tenderness to palpation present (GI), No Guarding due to palpation present (GI) and Yes No hepatosplenomegaly present Extremity: GENERAL: Yes edema (2+ edema lower extremities) Neuro: SENSORIUM/ORIENTATION: Yes oriented to person, Yes oriented to place and Yes oriented to time Skin: COMMON NORMALS: no rashes or lesions noted GENERAL SKIN EXAM: no rashes or lesions noted Course Vital Signs: Vital signs: Vital Signs Temperature 98.9 F 09/13/20 04:37 Pulse Rate 82 09/13/20 06:58 Respiratory Rate 21 H 09/13/20 06:58 Blood Pressure 166/101 09/13/20 06:58 Pulse Oximetry 93 09/13/20 06:58 MDM - SOB/Dyspnea MDM Narrative: Medical decision making narrative: Patient is in acute congestive heart failure had a previous echo that showed Ejection fraction of 55 to 60% with diastolic dysfunction left ventricular hypertrophy. Will need further diuresis and blood pressure control. Will consult nephrology and admit patient. I am starting him on Nitropaste and discussed with hospitalist. Lab Data: Labs: Lab Results 09/13/20 09/13/20 09/13/20 Range/Units 04:51 04:51 04:51 WBC 8.7 (4.0-10.0) 10^3/ uL RBC 3.15 L (4.1-5.3) 10^6/u L Hgb 7.9 L (11.7-16.6) g/dL Hct 25.3 L (42.0-52.0) % MCV 80.3 (80-94) fL MCH 25.1 L (28.0-34.0) pg MCHC 31.2 (30.0-36.0) g/dL RDW 19.1 H (12.1-15.1) % Plt Count 384 (130-400) 10^3/c mm MPV 10.3 (7.4-10.4) fL Neut % (Auto) 80.3 % Lymph % (Auto) 7.5 % Dixon % (Auto) 8.6 % Eos % (Auto) 2.5 % Baso % (Auto) 0.8 % Neut # (Auto) 6.94 (1.8-7.7) 10^3/u L Lymph # (Auto) 0.7 L (0.8-4.8) 10^3/u L Dixon # (Auto) 0.7 (0.2-0.9) 10^3/u L Eos # (Auto) 0.2 (0.0-0.8) 10^3/u L Baso # (Auto) 0.1 (0.0-0.1) 10^3/u L Nucleated RBC % (a uto) 0 % Nucleated RBCs # 0.0 /100WBC PT 17.90 H (12.1-14.9) SECO NDS INR 1.44 H (0.8-1.2) Sodium 133 L (136-145) mmol/L Potassium 3.9 (3.5-5.1) mmol/L Chloride 90 L (98-107) mmol/L Carbon Dioxide 34 H (22-29) mmol/L Anion Gap 12.9 (5-19) BUN 21 H (6-20) mg/dL Creatinine 4.2 H (0.7-1.2) mg/dL GFR Calculation 16.0 L (90-130) mL/min Glucose 90 (65-115) mg/dL Calculated Osmolal ity 279 L (285-295) mOsm/k g Calcium 8.9 (8.5-10.5) mg/dL Total Bilirubin 0.8 (0.15-1.2) mg/dL AST 11 (0-40) U/L ALT 6 (0-41) U/L Alkaline Phosphata se 150 H (40-130) IU/L Troponin T Baselin e (0-15) ng/L Troponin T 120 Min [place] (0-15) ng/L Delta Troponin T (0-10) ABS# NT-Pro-B Natriuret Pep > 86985 H (0-125) pg/mL Total Protein 8.5 (6.6-8.7) g/dL Albumin 3.3 L (3.5-5.2) g/dL Globulin 5.2 H (1.3-4.6) g/dL 09/13/20 09/13/20 Range/Units 04:51 06:20 WBC (4.0-10.0) 10^3/ uL RBC (4.1-5.3) 10^6/u L Hgb (11.7-16.6) g/dL Hct (42.0-52.0) % MCV (80-94) fL MCH (28.0-34.0) pg MCHC (30.0-36.0) g/dL RDW (12.1-15.1) % Plt Count (130-400) 10^3/c mm MPV (7.4-10.4) fL Neut % (Auto) % Lymph % (Auto) % Dixon % (Auto) % Eos % (Auto) % Baso % (Auto) % Neut # (Auto) (1.8-7.7) 10^3/u L Lymph # (Auto) (0.8-4.8) 10^3/u L Dixon # (Auto) (0.2-0.9) 10^3/u L Eos # (Auto) (0.0-0.8) 10^3/u L Baso # (Auto) (0.0-0.1) 10^3/u L Nucleated RBC % (a uto) % Nucleated RBCs # /100WBC PT (12.1-14.9) SECO NDS INR (0.8-1.2) Sodium (136-145) mmol/L Potassium (3.5-5.1) mmol/L Chloride (98-107) mmol/L Carbon Dioxide (22-29) mmol/L Anion Gap (5-19) BUN (6-20) mg/dL Creatinine (0.7-1.2) mg/dL GFR Calculation (90-130) mL/min Glucose (65-115) mg/dL Calculated Osmolal ity (285-295) mOsm/k g Calcium (8.5-10.5) mg/dL Total Bilirubin (0.15-1.2) mg/dL AST (0-40) U/L ALT (0-41) U/L Alkaline Phosphata se (40-130) IU/L Troponin T Baselin e 102 H* (0-15) ng/L Troponin T 120 Min [place] 81.66 H (0-15) ng/L Delta Troponin T -20.34 L (0-10) ABS# NT-Pro-B Natriuret Pep (0-125) pg/mL Total Protein (6.6-8.7) g/dL Albumin (3.5-5.2) g/dL Globulin (1.3-4.6) g/dL Discharge Plan Discharge Patient Disposition: Admitted As Inpatient Clinical Impression: Hypertension, End-stage renal disease on hemodialysis, Congestive heart failure, Anemia Condition: Stable Sign Out Sign Out Data: Patient Sign Out occurred on 09/13/20 at 06:10. Patient's care was discussed, and care was transferred from to Pato Rivera DO. Coding Level of Care Code ED Pharmacy Affairs Assistant for Adriannag Fwd Exam Comprehensive
[2020-09-13 05:24] LABS: INR 1.44 (0.8-1.2)
--- NOTE | 2020-09-13 05:37 | ECG_ITS ---
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 Measurements Intervals [place] Rate: 78 P: 58 HI: 180 QRS: 58 QRSD: 109 T: 68 QT: 432 QTc: 495 Interpretive Statements SINUS RHYTHM POSSIBLE LEFT ATRIAL ENLARGEMENT [-0.1mV P WAVE IN V1/V2] NONSPECIFIC T-WAVE ABNORMALITY PROLONGED QT INTERVAL WARNING: DATA QUALITY MAY AFFECT INTERPRETATION Compared to ECG 09/13/2020 05:33:01 T-wave abnormality now present Prolonged QT interval now present Intraventricular conduction delay no longer present Electronically Signed On 09-13-2020 19:26:22 CDT by Brijesh King M.D. [id number]
[2020-09-13 05:44] LABS: Alanine Aminotransferase 6 U/L (0-41); Albumin Level 3.3 g/dL (3.5-5.2); Alkaline Phosphatase 150 IU/L (40-130); Anion Gap 12.9 (5-19); Aspartate Amino Transferase 11 U/L (0-40); Blood Urea Nitrogen 21 mg/dL (6-20); Calcium 8.9 mg/dL (8.5-10.5); Carbon Dioxide 34 mmol/L (22-29); Chloride 90 mmol/L (98-107); Globulin 5.2 g/dL (1.3-4.6); Glucose 90 mg/dL (65-115); Osmolality Calculated 279 mOsm/kg (285-295); Potassium 3.9 mmol/L (3.5-5.1); Sodium 133 mmol/L (136-145); Total Bilirubin 0.8 mg/dL (0.15-1.2); Total Protein 8.5 g/dL (6.6-8.7)
[2020-09-13 06:12] LABS: NT Pro B Type Natriuretic Pept > 70000 pg/mL (0-125)
[2020-09-13 06:13] LABS: Troponin(5th) Baseline 102 ng/L (0-15)
[2020-09-13 06:46] LABS: Troponin 5 2HR 81.66 ng/L (0-15)
--- NOTE | 2020-09-13 07:37 | ECG_ITS ---
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 Measurements Intervals [place] Rate: 85 P: 57 OH: 203 QRS: 67 QRSD: 112 T: 59 QT: 401 QTc: 479 Interpretive Statements SINUS RHYTHM POSSIBLE LEFT ATRIAL ENLARGEMENT [-0.1mV P WAVE IN V1/V2] MODERATE INTRAVENTRICULAR CONDUCTION DELAY [110+ ms QRS DURATION] Compared to ECG 09/13/2020 06:17:20 Intraventricular conduction delay now present T-wave abnormality no longer present Prolonged QT interval no longer present Electronically Signed On 09-13-2020 19:33:03 CDT by Brijesh King M.D. [id number]
[2020-09-13] MEDS: nitroglycerin 1 gm/inch oint Pkt 1 INCH TOPICAL ×3 (07:50→22:38)
--- NOTE | 2020-09-13 08:46 | PM.CONSULT ---
Providers/Reason For Consult Consulting Physican/Specialty*: Imani Seo DO, telenephrology Reason for Consult*: ESRD, volume overload Attending Physician: Db Bauman MD Primary Care Provider: Mal Junior History of Present Illness History of Present Illness Mal Gibbs is a 40 year old male presenting with severe hypertension and dyspnea. Had HD yesterday with removal 5L fluid. States he is compliant with medications and fluid restriction. Review of Systems Card: Reports: edema, swelling of feet/ankles and dyspnea on exertion; Denies: chest pain Resp: Reports: dyspnea Meds/Allergies Home Medications and Allergies Home Medications Medication Instructions Recorded Confirmed Last Taken Type calcium acetate 667 mg tablet See Rx Instructions .ROUTE 01/24/20 09/13/20 04/12/20 History .COMPLEX tab carvedilol 25 mg tablet 25 mg PO Q12H tab 01/24/20 09/13/20 05/03/20 History levalbuterol tartrate 45 2 inh INHALATION Q6H PRN #15 gm 01/24/20 09/13/20 Unknown Rx mcg/actuation aerosol inhaler spironolactone 25 mg tablet 50 mg PO DAILY@08 tab 01/24/20 09/13/20 05/03/20 History docusate sodium 200 mg PO BID@08,20 04/13/20 09/13/20 05/03/20 History lisinopril 20 mg PO DAILY 04/13/20 09/13/20 05/03/20 History trazodone 50 mg PO BEDTIME@20 04/13/20 09/13/20 05/02/20 History Incruse Ellipta 1 inh INHALATION DAILY@0800 05/03/20 09/13/20 05/03/20 History bisacodyl 5 mg PO BID PRN 09/13/20 09/13/20 Unknown History clonidine HCl 0.2 mg PO BID PRN 09/13/20 09/13/20 Unknown History hydrocodone-acetaminophen 1 tab PO TID PRN 09/13/20 09/13/20 Unknown History isosorbide mononitrate 60 mg PO DAILY 09/13/20 09/13/20 Unknown History minoxidil 20 mg PO BID 09/13/20 09/13/20 Unknown History pantoprazole 40 mg PO DAILY 09/13/20 09/13/20 Unknown History sennosides-docusate sodium 1 tab PO BID 09/13/20 09/13/20 Unknown History [Stimulant Laxative Plus] terazosin 10 mg PO BEDTIME@199909/13/20 09/13/20 Unknown History Allergies Allergy/AdvReac Type Severity Reaction Status Date / Time No Known Allergies Allergy Verified 05/04/20 16:45 PFSH Acute PFSH: Medical History Anxiety with depression Arteriovenous fistula for hemodialysis in place, secondary COPD (chronic obstructive pulmonary disease) Current smoker Degenerative disc disease, lumbar End-stage renal disease on hemodialysis Hepatomegaly Hypertension Surgical History H/O hand surgery Amputation right 2&3 fingers 2017 History of adenoidectomy Family History Other Hypertension Denies family history of Diabetes Chronic kidney disease (CKD) Lung disease Cancer Stroke Social History Smoking and tobacco status: current every day smoker Second hand smoke exposure: Yes Smoking risk assessment/counseling performed?: Yes Alcohol intake: never Desire information about alcohol rehabilitation?: No Counseling given: No Desire information about substance/drug rehabilitation?: No Counseling given: No Adopted: No Caregiver/support person: No Lives independently: Yes Household members: spouse and family Housing: House Marital status: Number of children: 3 service: No Current occupational status: disabled Pets and animals: Yes Pets & animals: cat(s) and dog(s) History of recent travel: No Current gender identity: Male Vitals/I&O/Wt Last Vital Signs Temp 98.9 F 09/13/20 04:37 Pulse 82 09/13/20 08:05 Resp 18 09/13/20 08:05 BP 142/93 09/13/20 08:05 Pulse Ox 94 09/13/20 08:05 Weight last 48 hrs Weight 88.1 kg Physical Exam Const: GENERAL APPEARANCE: cooperative; not well kempt Extremity: GENERAL: Yes edema OTHER: LUE AVF no signs of infection Psych: APPEARANCE: No well kempt Data Labs: Other Labs: BNP > 70,000, SF 1278, TSAT 11%, trop +, albumin 3.3 Imaging^: CTA Chest: Radiologist's impression: 1. No significant pulmonary embolism centrally. Inconclusive for very tiny peripheral LEFT lower lobe pulmonary artery subsegmental emboli versus poor opacification. 2. Significant change in appearance of the heart and pulmonary artery since 12/01/2018. 3. Marked cardiac enlargement with RIGHT heart strain. 4. Marked enlargement of the pulmonary artery consistent with pulmonary hypertension. Pulmonary artery diameter has increased from 2.8 to 4.0 cm. 5. Small axillary and hilar lymph nodes. Minimal increase in size since the prior study. 6. Severe hepatomegaly and hepatic venous congestion. 7. Diffuse soft tissue anasarca. 8. Diffuse groundglass attenuation throughout both lungs. May be due to edema, pneumonitis or chronic PE. CXR: Radiologist's impression: Lungs: Mildly increased lung markings, suggestive of mild pulmonary congestion. No focal consolidation. Pleural spaces: No pleural effusion or pneumothorax. Heart/Mediastinum: Stable mildly enlarged heart. Bones/joints: Unremarkable. CT Abd/Pel: Radiologist's impression: April 2020: 1. Bilateral pleural effusions most marked on the right. Pericardial effusion. Cardiac enlargement. 2. Extensive abdominal and pelvic ascites. Anasarca. 3. Hepatosplenomegaly. Bilateral renal atrophy. 4. Fluid distention of several small bowel loops in the left abdomen probably representing localized ileus. No sign of maida bowel obstruction or pneumoperitoneum. 5. Bilateral inguinal lymphadenopathy. A&P Additional A&P Information Impression: 1. ESRD 2. Volume overload, anasarca, pulmonary edema 3. Pulmonary hypertension, right heart strain, hepatosplenomegaly 4. Anemia 5. Severe hypertension Recommendation: HD today, 3H, 3L UF; HD again tomorrow. No IVs, BPs, blood draws left arm. Consider echocardiogram and abdominal ultrasound. Cardiology evaluation. Continue ACEi and beta patricia. Consult Attestations Medical Necessity Statement: critically ill in ICU Time Spent in Patient Care: Greater than 35 minutes Coding Level of Care Code Acute Mass Spectrometry Manager for Cristi Diane
--- NOTE | 2020-09-13 09:13 | CT_ITS ---
WS: [id number] CT CHEST ANGIOGRAPHY WITH REFORMATS HISTORY: hemoptysis TECHNIQUE: Contiguous axial images are obtained through the chest during arterial injection of intrav enous contrast. Images are reconstructed to evaluate the pulmonary arteries. MIP imaging also reviewe d. All CT scans at [facility] use at least one of these dose optimization techniques: aut omated exposure control; mA and/or kV adjustment per patient size (includes targeted exams where dose is matched to clinical indication); or iterative reconstruction. CONTRAST: Visipaque 320; 95 mL IV. DLP: 515.06 mGy.cm COMPARISON: 12/01/2018 Good opacification of the pulmonary arteries. There is a very small filling defect in the distal LEFT lower lobe pulmonary artery subsegmental branch. This could be poor opacification due to injection o r very small emboli. Not likely symptomatic. There is good opacification of the remaining pulmonary a rteries. Pulmonary artery is enlarged measuring 4.0 cm. Normal size thoracic aorta. Marked enlargement of the heart. There is RIGHT heart strain with clockwise rotation of the heart as compared to 12/01/2018. Diffuse groundglass attenuation throughout both lungs. More focal increasing opacification but still groundglass at the lung bases. No effusion. Prominent axillary and hilar lymph nodes. Largest hilar l ymph node on the RIGHT measures 2.0 cm in diameter. There is diffuse soft tissue edema and anasarca. Liver is severely enlarged and edematous. There is a small amount of fluid surrounding the liver and spleen. CT/CT angio chest PE protcl [id number] IMPRESSION: 1. No significant pulmonary embolism centrally. Inconclusive for very tiny per ipheral LEFT lower lobe pulmonary artery subsegmental emboli versus poor opacif ication. 2. Significant change in appearance of the heart and pulmonary artery since . 3. Marked cardiac enlargement with RIGHT heart strain. 4. Marked enlargement of the pulmonary artery consistent with pulmonary hypert ension. Pulmonary artery diameter has increased from 2.8 to 4.0 cm. 5. Small axillary and hilar lymph nodes. Minimal increase in size since the pr ior study. 6. Severe hepatomegaly and hepatic venous congestion. 7. Diffuse soft tissue anasarca. 8. Diffuse groundglass attenuation throughout both lungs. May be due to edema, pneumonitis or chronic PE.
[2020-09-13] MEDS: lisinopril 20 mg Tablet 40 MG PO (09:18)
--- NOTE | 2020-09-13 09:18 | USCV_ITS ---
Mal Gibbs Age: 40 Gender: M : 1980 Exam Date: 09/13/2020 15:22 Ordering Phys: Db Bauman MD Technologist: Francesca Head Exam Location: [facility] [place]_ Indication: SWELLING HISTORY: Lower extremity swelling. PROCEDURES: Venous duplex imaging was performed in bilateral lower extremities. The following venous structures were evaluated: common femoral vein, profunda vein, proximal portion of the greater saphenous vein, superficial femoral vein, and the popliteal vein. In addition, the posterior tibial and peroneal trunk were evaluated. Serial compression, augmentation maneuvers, and spectral Doppler flow evaluation were performed. FINDINGS: Normal 2-D Doppler and augmentation and compressibility throughout the lower extremity venous structures. Additional imaging through the proximal calf veins also reveals no thrombus. Limited evaluation of the greater saphenous vein is patent with no thrombus. Extensive soft tissue edema. CONCLUSIONS No DVT bilateral lower extremities. Dr. Judie Peter DO (Electronically Signed) Final Date: 13 Sep 2020 16:26 S
--- NOTE | 2020-09-13 09:23 | P.HP_ITS ---
Providers/Chief Complaint Admitting Physician: Db Bauman MD Primary Care Provider: Mal Vernon Chief Complaint: difficulty breathing, back pain History of Present Illness Mal Gibbs is a 40 year old male who presents with swelling, and shortness of breath. He states is really been going on for a month but worse in the last several days. He occasionally will miss dialysis with his last missed dialysis on Thursday. He reports that he frequently talked to him regarding fluid restriction. He denies having to stop dialysis early yesterday. He reports after he got dialysis he felt better and less short of breath but after going home he realized he still could not lay flat. He has had some mid back pain. He has an occasional cough and reports to me occasional hemoptysis. He reports his abdomen, penis, and legs are swollen. He reports occasional sharp chest discomfort that lasts seconds. He has had no vomiting. He reports he tries to be compliant with his medication. He reports no history of Covid, exposure to it or vaccine for it. Review of Systems General: Reports: 10 or more systems reviewed and unremarkable except in HPI and below Const: Reports: fatigue; Denies: fever(s) or chills Eyes: Denies: change in vision ENMT: Denies: throat pain Card: Reports: chest pain, swelling of feet/ankles, dyspnea on exertion and orthopnea Resp: Reports: dyspnea and hemoptysis GI: Denies: abdominal pain, nausea or vomiting : Denies: flank pain Musc: Denies: neck pain Skin/Breast: Denies: rash Neuro: Denies: headache(s) Psych: Denies: anxiety or depression Endo: Denies: polyuria [place]/Lymph: Denies: easy bruising All/Imm: Denies: urticaria Medications/Allergies Home Medications Medication Instructions Recorded Confirmed Last Taken Type calcium acetate 667 mg tablet See Rx Instructions .ROUTE 01/24/20 09/13/20 04/12/20 History .COMPLEX tab carvedilol 25 mg tablet 25 mg PO Q12H tab 01/24/20 09/13/20 05/03/20 History levalbuterol tartrate 45 2 inh INHALATION Q6H PRN #15 gm 01/24/20 09/13/20 Unknown Rx mcg/actuation aerosol inhaler spironolactone 25 mg tablet 50 mg PO DAILY@08 tab 01/24/20 09/13/20 05/03/20 History docusate sodium 200 mg PO BID@08,20 04/13/20 09/13/20 05/03/20 History lisinopril 20 mg PO DAILY 04/13/20 09/13/20 05/03/20 History trazodone 50 mg PO BEDTIME@20 04/13/20 09/13/20 05/02/20 History Incruse Ellipta 1 inh INHALATION DAILY@0800 05/03/20 09/13/20 05/03/20 History bisacodyl 5 mg PO BID PRN 09/13/20 09/13/20 Unknown History clonidine HCl 0.2 mg PO BID PRN 09/13/20 09/13/20 Unknown History hydrocodone-acetaminophen 1 tab PO TID PRN 09/13/20 09/13/20 Unknown History isosorbide mononitrate 60 mg PO DAILY 09/13/20 09/13/20 Unknown History minoxidil 20 mg PO BID 09/13/20 09/13/20 Unknown History pantoprazole 40 mg PO DAILY 09/13/20 09/13/20 Unknown History sennosides-docusate sodium 1 tab PO BID 09/13/20 09/13/20 Unknown History [Stimulant Laxative Plus] terazosin 10 mg PO BEDTIME@199909/13/20 09/13/20 Unknown History Allergies Allergy/AdvReac Type Severity Reaction Status Date / Time No Known Allergies Allergy Verified 05/04/20 16:45 PFSH Acute PFSH: Medical History Anxiety with depression Arteriovenous fistula for hemodialysis in place, secondary COPD (chronic obstructive pulmonary disease) Current smoker Degenerative disc disease, lumbar End-stage renal disease on hemodialysis Hepatomegaly Hypertension Surgical History H/O hand surgery Amputation right 2&3 fingers 2017 History of adenoidectomy Family History Other Hypertension Denies family history of Diabetes Chronic kidney disease (CKD) Lung disease Cancer Stroke Social History Smoking and tobacco status: current every day smoker Second hand smoke exposure: Yes Smoking risk assessment/counseling performed?: Yes Alcohol intake: never Desire information about alcohol rehabilitation?: No Counseling given: No Desire information about substance/drug rehabilitation?: No Counseling given: No Adopted: No Caregiver/support person: No Lives independently: Yes Household members: spouse and family Housing: House Marital status: Number of children: 3 service: No Current occupational status: disabled Pets and animals: Yes Pets & animals: cat(s) and dog(s) History of recent travel: No Current gender identity: Male Vitals/I&O/Wt Last Vital Signs Temp 98.9 F 09/13/20 04:37 Pulse 86 09/13/20 08:47 Resp 18 09/13/20 08:05 BP 142/93 09/13/20 08:05 Pulse Ox 96 09/13/20 08:47 Weight last 48 hrs Weight 88.1 kg Physical Exam Narrative: EXAM NARRATIVE: General exam is an edematous appearing white male sitting up in bed. HEENT: Pupils equally round. Oropharynx is clear. Neck is supple no lymphadenopathy or thyromegaly Cardiovascular regular rate and rhythm without murmur, no S3 or S4 Lungs crackles bibasilar Abdomen is soft. Appears to have some distention likely fluid. Some mild global tenderness demonstrates edematous penis and scrotum Extremities 3+ edema, cap refill brisk Skin no rash Neuro no obvious focal deficits Data : 09/13/20 04:51 09/13/20 04:51 Other data: INR is 1.44 AST and ALT are 11, 6. Calcium normal at 8.9. Alk phos 150 Troponin I 02 with repeat 81 BNP 70,000 Chest x-ray which I reviewed demonstrates cardiomegaly, pulmonary congestion EKG demonstrates sinus rhythm, normal axis, intraventricular conduction delay A&P Assessment and plan (1) Anasarca: Significant fluid overload, that may be compounded with patient's compliance with dialysis overall or fluid restriction. Either way dialysis will be the most effective method to reduce his total body fluid. Status: Acute (2) Hemoptysis: Patient complaints of hemoptysis, and concomitant dyspnea brings up concern of pulmonary emboli. Patient without hypotension, or significant tachycardia currently. I have ordered a CTA, which is now back demonstrating indeterminate pulmonary embolus left lung. Will initiate heparin drip secondary to concordant CT findings of right heart strain, enlargement of pulmonary arteries consistent with pulmonary hypertension. Will obtain echocardiogram. Check venous duplex lower extremities Status: Acute (3) Congestive heart failure: Secondary to fluid overload. Consistent with acute diastolic heart f ailure. Effective means of reducing fluid is dialysis. Elevated troponin consistent with type II elevation. Check echocardiogram secondary to concern of right heart strain on CTA, history of pericardial effusion on last echocardiogram Status: Acute (4) Anemia: Likely secondary to chronic kidney disease. Add Protonix Check stool Hemoccult, iron studies No need for transfusion at this point. Status: Acute (5) End-stage renal disease on hemodialysis: Nephrology consult for dialysis Status: Chronic (6) Hypertension: Continue many of his home medications, with addition of nitroglycerin ointment. Hydralazine as needed Status: Chronic Additional A&P Information Acute respiratory failure, hypoxic. Secondary to fluid overload. Tobacco dependency. Counseled on abstinence. Full code Heparin for DVT prophylaxis. Attestations Medical Necessity Statement*: Will need greater than 2 midnight stay for evaluation and treatment of anasarca, acute diastolic heart failure, probable pulmonary embolism Time Spent in Patient Care: Greater than 35 minutes Coding Level of Care Code Acute Clinical Nurse Educator for [facility] Fwd Diagnoses Anasarca R60.1 Hemoptysis R04.2 Congestive heart failure I50.9 Anemia D64.9 End-stage renal disease on hemodialysis N18.6; Z99.2 Hypertension I10
--- NOTE | 2020-09-13 09:26 | PC.CHAP ---
Pastoral Care Encounter/Spiritual Assessment Type of Contact [] Declined service center representative visit [] Patient/Family/Request visit [] Outpatient visit [] Follow-up visit [] Physician referral [] Code/Alert [x] Routine visit [] Staff referral [] Actively dying [x] Patient sleeping [] Family support [] [] Out of room [] Palliative care [] [] Receiving care in room [] Pre-surgical visit [] Trauma [] Long length of stay [x] ICU visit [x] Other: feet swollen ...recent intake .. Relational/Emotional Strength [] Patient feels connected with others/family/visitors/staff [] Distress [] Loneliness/isolation [] Abandonment Spirituality of Patient [] Person of Ct [] Attends Jew of their Ct [] Believes in Prayer [] Reads Bible or Uatsdin materials [] There are Spiritual issues to be addressed Director Of Public Safety Interventions [x] Prayer [] Active listening [] Non-anxious presence [] Spiritual/emotional support [] Crisis/trauma care [] Spiritual counseling [] Bereavement support [] Provided bereavement packet [] Provided Bible/devotional materials [] Provided toy/stuffed animal, coloring book to patient or family member [] Provided Communion [] Anointing/[place] [] Salvation [x] Completed spiritual assessment [] Other: Impact on Illness or Injury [] Angry [] Fearful [] Anxious [] Often cries [] Exhaustion [] Unable to work [] Unable to attend anabaptism [] Unable to walk/stand [] Unable to read [] Unable to drive [] Unable to eat/drink [] Unable to sleep [] Unable to be with family [] Patient intubated [] Other: Summary Time spent with patient
[2020-09-13] MEDS: iodixanol 320 mg/mL 100mL Btl IV (09:38)
[2020-09-13] MEDS: heparin 5,000 unit/mL INJ 1 mL 5000 UNIT SUBCUT (09:54)
[2020-09-13] MEDS: carvedilol 25 mg Tablet PO ×2 (09:54→20:50)
--- NOTE | 2020-09-13 10:20 | USCV_ITS ---
Mal Gibbs Age: 40 Gender: M : 1980 Exam Date: 09/13/2020 15:09 Ordering Phys: Db Bauman MD Technologist: Francesca Head Exam Location: [facility] [place] Indication: PE BP: 164 / 105 HR: 76 Rhythm: Sinus Technical Quality: Adequate MEASUREMENTS (Male / Female) Normal Values 2D ECHO LV Diastolic Diameter PLAX 5.1 cm 4.2 - 5.9 / 3.9 - 5.3 cm LV Systolic Diameter PLAX 3.9 cm LV Chamber Size 2.6 cm IVS Diastolic Thickness 1.3 cm 0.6 - 1.0 / 0.6 - 0.9 cm IVS Systolic Thickness 1.5 cm LVPW Diastolic Thickness 2.1 cm 0.6 - 1.0 / 0.6 - 0.9 cm LVPW Systolic Thickness 2.8 cm RV Chamber Size 3.3 cm LVOT Diameter 2.1 cm LV Ejection Fraction 2D Teich 47.6 % LV Ejection Fraction MOD 2C 36.7 % LV Ejection Fraction 2C AL 35.3 % LA Diameter 4.7 cm LA Width 4.5 cm LA Height 5.9 cm RA Width 4.9 cm RA Height 5.8 cm Aorta at Sinotubular Diameter 2.7 cm M-MODE LV Diastolic Diameter MM 5.5 cm 4.2 - 5.9 / 3.9 - 5.3 cm LV Systolic Diameter MM 4.3 cm LV Ejection Fraction MM Teich 43.9 % IVS Diastolic Thickness MM 1.4 cm 0.6 - 1.0 / 0.6 - 0.9 cm IVS Systolic Thickness MM 1.4 cm LVPW Diastolic Thickness MM 1.6 cm 0.6 - 1.0 / 0.6 - 0.9 cm LVPW Systolic Thickness MM 1.7 cm Aortic Annulus Diameter 3.1 cm LA Ao Ratio MM 1.5 MV E Point Septal Separation 1.3 cm DOPPLER AV Peak Velocity 147.0 cm/s LVOT Peak Velocity 156.0 cm/s AV Area Cont Eq vti 3.2 cm squared AV Area Cont Eq pk 3.5 cm squared MV Area PHT 5.1 cm squared Mitral E to A Ratio 1.5 MV E' Velocity 72.0 cm/s Mitral E to MV E' Ratio 13.6 Mitral E to LV E' Lateral Ratio 11.1 Mitral E to LV E' Septal Ratio 17.3 TR Peak Velocity 280.0 cm/s TR Peak Gradient 31.4 mmHg TV Peak E Velocity 67.0 cm/s Right Atrial Pressure 3.0 mmHg Pulmonary Artery Systolic Pressu 34.4 mmHg PV Peak Velocity 107.0 cm/s RV Acceleration Time 0.1 s RV Ejection Time 0.3 s RV AcT/ET 0.4 FINDINGS Left Ventricle Normal left ventricular size. LV systolic function is normal with EF of 50-55%. No regional wall motion abnormalities. Diastolic function is abnormal Right Ventricle The right ventricle is normal in size and function. Right Atrium The right atrium is enlarged Left Atrium The left atrium is enlarged Mitral Valve Structurally normal mitral valve without significant stenosis or prolapse. There is mild mitral regurgitation. Aortic Valve Structurally normal aortic valve without significant sclerosis or stenosis. There is no aortic regurgitation. Tricuspid Valve Structurally normal tricuspid valve without significant stenosis. Mild tricuspid regurgitation. RVSP is 40-45mmHg. This is consistent with moderate pulmonary hypertension Pulmonic Valve Structurally normal pulmonic valve without significant stenosis. There is no pulmonic regurgitation. Pericardium Trivial pericardial effusion is present. Pleural effusion is noted as well. Aorta Normal ascending aorta dimension. CONCLUSIONS LV systolic function is normal with EF of 50-55% Diastolic function is abnormal Biatrial enlargement Mild mitral regurgitation Moderate pulmonary hypertension Trivial pericardial effusion and moderate pleural effusion noted Compared to prior echocardiogram from 05/02/2021, no significant changes are noted Brijesh King MD (Electronically Signed) Final Date: 13 Sep 2020 17:06 S
[2020-09-13 10:53] LABS: Iron 20 ug/dL (59-158); Percent Saturation 11.3 % (20-50); Total Iron Binding Capacity 176 mcg/dl; Unsaturated Iron Binding 156 ug/dL (112-347)
[2020-09-13 11:08] LABS: Ferritin 1278 ng/mL (30-400)
--- NOTE | 2020-09-13 11:37 | ECG_ITS ---
[facility] Test Date: 2020-09-13 Pat Name: Mal Gibbs Department: Room: [facility] Gender: Male House Visitor: : 1980 Requested By: Dayana Nunez Order Number: [id number] Mohini MD: Brijesh King M.D. Measurements Intervals [place] Rate: 86 P: 55 RI: 185 QRS: 60 QRSD: 110 T: 87 QT: 390 QTc: 468 Interpretive Statements SINUS RHYTHM POSSIBLE LEFT ATRIAL ENLARGEMENT [-0.1mV P WAVE IN V1/V2] NONSPECIFIC T-WAVE ABNORMALITY Compared to ECG 09/13/2020 08:32:36 T-wave abnormality now present Intraventricular conduction delay no longer present Electronically Signed On 09-13-2020 19:32:33 CDT by Brijesh King M.D. [id number]
[2020-09-13 11:44] LABS: Troponin 5 6HR 79.37 ng/L (0-15)
[2020-09-13] MEDS: hyDRALAzine 20 mg/mL INJ 1 mL 10 MG IVP (12:14)
[2020-09-13] MEDS: cloNIDine 0.1 mg Tablet PO (13:31)
[2020-09-13 13:52] LABS: Glucose Point of Care 107 mg/dL (70-110)
[2020-09-13 14:03] LABS: Hepatitis B Surface Antigen Non-Reactive (Nonreactive)
[2020-09-13] MEDS: HYDROcodone-acetaminophen 5-325 mg Tablet 1 TAB PO ×2 (14:18→19:29)
--- NOTE | 2020-09-13 14:19 | US_ITS ---
WS: [id number] Complete ABDOMINAL ULTRASOUND HISTORY: distention, pain COMPARISON: None available. Liver: 23.2 cm in length. Marked hepatomegaly. Mild heterogeneity within the liver consistent with he patic congestion. No mass or bile duct dilatation. Gallbladder: Mildly contracted gallbladder with diffuse wall thickening measuring up to 3 mm. Wall th ickening is likely due to the ascites. Gallbladder wall thickness: 0.3 cm. Pancreas: Normal size and echogenicity. CBD: 0.4 cm. Right kidney: 7.7 cm x 4.4 cm x 3.4 cm. Poorly visualized kidney. Left kidney: Not identified. Spleen: Not identified. IVC is dilated. Mild atherosclerosis aorta. Small amount of ascites around the liver and spleen. US/US abdomen complete* [id number] IMPRESSION: 1. Limited evaluation of the abdominal structures due to body habitus and flui d/edema. 2. Contracted gallbladder with wall thickening on the basis of ascites and/or hepatocellular disease. 3. Marked hepatomegaly with hepatic venous congestion. 4. Spleen and LEFT kidney are not identified.
[2020-09-13] MEDS: heparin 5,000 unit/mL INJ 1 mL IV (18:27)
[2020-09-13] MEDS: heparin drip 25,000 UNIT/500 ML PREMIX 25 UNIT IV (18:27)
[2020-09-13] MEDS: terazosin 5 mg Capsule 10 MG PO (19:29)
[2020-09-14] VITALS (23 sets, daily range): BP systolic 132–189; BP diastolic 87–123; PULSE 70–88; RESP 15–18; TEMP 36.6–37.1; O2SAT 87–100
[2020-09-14] MEDS: HYDROcodone-acetaminophen 5-325 mg Tablet 1 TAB PO ×2 (00:29→16:30)
[2020-09-14] MEDS: lidocaine 5% Patch 1 PATCH TOPICAL (00:51)
[2020-09-14 01:26] LABS: Partial Thromboplastin Time 47.8 SECONDS (23.9-36.7)
[2020-09-14] MEDS: heparin 5,000 unit/mL INJ 1 mL IV ×2 (01:31→10:23)
[2020-09-14] MEDS: HYDROmorphone 1 mg/mL INJ 1 mL IVP (01:50)
--- NOTE | 2020-09-14 02:04 | PC.NURSE ---
PT refusing to leave BP cuff on for measurement
[2020-09-14] MEDS: hyDRALAzine 20 mg/mL INJ 1 mL 10 MG IVP (03:02)
[2020-09-14] MEDS: HYDROmorphone 1 mg/mL INJ 1 mL 2 MG IVP ×3 (03:16→20:32)
[2020-09-14] MEDS: nitroglycerin 1 gm/inch oint Pkt 1 INCH TOPICAL ×4 (03:50→22:05)
[2020-09-14 04:11] LABS: Basophils # 0.1 10^3/uL (0.0-0.1); Basophils % 0.8 %; Eosinophils # 0.3 10^3/uL (0.0-0.8); Hematocrit 23.1 % (42.0-52.0); Lymphocytes # 0.7 10^3/uL (0.8-4.8); Lymphocytes % 8.7 %; Mean Corpuscular HGB Conc 30.3 g/dL (30.0-36.0); Mean Corpuscular Hemoglobin 24.6 pg (28.0-34.0); Mean Corpuscular Volume 81.3 fL (80-94); Mean Platelet Volume 10.3 fL (7.4-10.4); Monocytes # 0.6 10^3/uL (0.2-0.9); Monocytes % 8.2 %; Neutrophils # 5.97 10^3/uL (1.8-7.7); Nucleated Red Blood Cells % 0 %; Platelet Count 353 10^3/cmm (130-400); Red Blood Count 2.84 10^6/uL (4.1-5.3); White Blood Count 7.7 10^3/uL (4.0-10.0)
[2020-09-14 04:23] LABS: Alanine Aminotransferase 13 U/L (0-41); Alkaline Phosphatase 130 IU/L (40-130); Anion Gap 10.6 (5-19); Aspartate Amino Transferase 19 U/L (0-40); Blood Urea Nitrogen 24 mg/dL (6-20); Calcium 8.6 mg/dL (8.5-10.5); Carbon Dioxide 33 mmol/L (22-29); Chloride 93 mmol/L (98-107); Globulin 4.6 g/dL (1.3-4.6); Glomerular Filtration Rate 15.1 mL/min (90-130); Glucose 86 mg/dL (65-115); Osmolality Calculated 277 mOsm/kg (285-295); Potassium 4.6 mmol/L (3.5-5.1); Sodium 132 mmol/L (136-145); Total Bilirubin 0.6 mg/dL (0.15-1.2); Total Protein 7.6 g/dL (6.6-8.7)
--- NOTE | 2020-09-14 06:57 | P.PN_ITS ---
Subjective Subjective: Interval history: No complaints. Seen during dialysis Medications: Reviewed: Yes Vitals/I&O/Wt Last Vital Signs Temp 98.2 F 09/13/20 08:30 Pulse 87 09/14/20 06:00 Resp 15 09/14/20 06:20 BP 158/96 09/14/20 06:00 Pulse Ox 87 L 09/14/20 06:00 09/13/20 09/13/20 09/14/20 14:59 22:59 06:59 Intake Total 850 / 850 176.667 / 1026.667 Output Total 0 / 0 Balance 850 / 850 176.667 / 1026.667 Weight last 48 hrs Weight 88.1 kg Physical Exam Const: COMMON NORMALS: no acute distress GENERAL APPEARANCE: disheveled NUTRITIONAL APPEARANCE: thin Extremity: GENERAL: Yes edema OTHER: Left forearm AVF - no signs of infection Data : 09/14/20 03:28 09/14/20 03:28 Other Labs: TSAT 10%, SF > 1000 A&P Additional A&P Information Impression: 1. ESRD, receiving 3rd daily HD today 2. Volume overload, anasarca, pulmonary edema 3. Pulmonary hypertension, right heart strain, hepatosplenomegaly 4. Anemia, received 1u PRBC today 5. Severe hypertension Recommendation: HD today, 3H, 3L UF. No IVs, BPs, blood draws left arm. EPogen at HD Attestations Medical Necessity Statement*: see above Time Spent in Patient Care: 16 - 35 minutes Coding Level of Care Code Acute Quality Cloth Tester for [facility]
--- NOTE | 2020-09-14 08:00 | PC.NURSE ---
Pt requested milk with breakfast. Discussed Renal diet, milk not on tray. Pt verbalized understanding. Pt still wanted milk. Milk provided at his request and understanding it was against his diet order.
[2020-09-14] MEDS: pantoprazole DR 40 mg Tablet PO (08:23)
[2020-09-14] MEDS: lisinopril 20 mg Tablet 40 MG PO (08:23)
[2020-09-14] MEDS: carvedilol 25 mg Tablet PO ×2 (08:30→20:29)
[2020-09-14] MEDS: sodium chloride 0.9% (100 ml) 100 ML (09:35)
--- NOTE | 2020-09-14 09:50 | PM.PN ---
Subjective Subjective: Interval history: Mal reports he feels much better than he did. He is less short of breath. Abdomen does not feel as distended. Medications: Reviewed: Yes Vitals/I&O/Wt Last Vital Signs Temp 98.8 F 09/14/20 09:29 Pulse 76 09/14/20 09:29 Resp 16 09/14/20 09:29 BP 155/100 09/14/20 09:29 Pulse Ox 100 09/14/20 09:29 09/13/20 09/14/20 09/14/20 22:59 06:59 14:59 Intake Total 850 / 850 176.667 / 1026.667 0 / 0 Output Total 0 / 0 Balance 850 / 850 176.667 / 1026.667 0 / 0 Weight last 48 hrs Weight 88.1 kg Physical Exam Narrative: EXAM NARRATIVE: General exam no apparent distress Neck is supple no lymphadenopathy or thyromegaly Cardiovascular regular rate and rhythm without murmur, no S3 or S4 Lungs crackles improved aeration. Still a few crackles. Abdomen is soft. Appears to have some distention likely fluid. Some mild global tenderness Extremities 2+ edema, brisk capillary refill Data : 09/14/20 03:28 09/14/20 03:28 A&P Assessment and plan (1) Anasarca: Significant fluid overload, that may be compounded with patient's compliance with dialysis overall or fluid restriction. Either way dialysis will be the most effective method to reduce his total body fluid. Received dialysis September 13, and I believe there are plans for it again today. Status: Acute (2) Hemoptysis: Patient complaints of hemoptysis, and concomitant dyspnea brings up concern of pulmonary emboli. Patient without hypotension, or significant tachycardia currently. I have ordered a CTA, which is now back demonstrating indeterminate pulmonary embolus left lung. Heparin drip secondary to concordant CT findings of right heart strain, enlargement of pulmonary arteries consistent with pulmonary hypertension. Venous duplex lower extremities was negative. Echocardiogram demonstrated EF 50 to 55%, abnormal diastolic dysfunction and moderate pulmonary hypertension. Pericardial effusion was trivial. I believe his pulmonary hypertension could be secondary to pulmonary embolism, or perhaps chronic fluid overload from noncompliance with fluid restriction/noncompliance with dialysis treatments. Will need to transition to oral anticoagulation prior to discharge if hemoglobin remained stable. Status: Acute (3) Congestive heart failure: Secondary to fluid overload. Consistent with acute diastolic heart failure. Effective means of reducing fluid is dialysis. He has already started to improve Elevated troponin consistent with type II elevation. See echocardiogram results listed above Status: Acute (4) Anemia: Likely secondary to chronic kidney disease. Add Protonix Awaiting stool Hemoccult Hemoglobin has drifted down to 7, despite dialysis. No clear evidence for active bleeding. Transfuse 1 unit of packed red blood cells with dialysis. Status: Acute (5) End-stage renal disease on hemodialysis: Nephrology consult for dialysis Status: Chronic (6) Hypertension: Continue many of his home medications, with addition of nitroglycerin ointment. Hydralazine as needed Blood pressure has markedly improved with above as well as dialysis. Status: Chronic Additional A&P Information Hepatomegaly, elevated INR. Hepatitis panel recently negative. I suspect this is congestion from chronic heart failure. Acute respiratory failure, hypoxic. Secondary to fluid overload. Improved. Currently on 2 L of oxygen Tobacco dependency. Counseled on abstinence. Full code Heparin for DVT prophylaxis. May transition out of ICU today. Attestations Medical Necessity Statement*: Needs continued hospitalization for further dialysis secondary to acute diastolic heart failure, possible pulmonary embolism. Coding Level of Care Code Acute Jigger Machine Operator for [facility] Fwd Diagnoses Anasarca R60.1 Hemoptysis R04.2 Congestive heart failure I50.9 Anemia D64.9 End-stage renal disease on hemodialysis N18.6; Z99.2 Hypertension I10
[2020-09-14 10:03] LABS: Partial Thromboplastin Time 44.5 SECONDS (23.9-36.7)
--- NOTE | 2020-09-14 11:17 | PC.NURSE ---
Report faxed to [facility].
--- NOTE | 2020-09-14 11:28 | PC.NURSE ---
Report called to [facility], for room 279-1. Report given to
[2020-09-14] MEDS: heparin drip 25,000 UNIT/500 ML PREMIX 31 UNIT IV (13:54)
[2020-09-14] MEDS: apixaban 5 mg Tablet PO (20:28)
[2020-09-14] MEDS: terazosin 5 mg Capsule 10 MG PO (20:28)
[2020-09-15] VITALS (22 sets, daily range): BP systolic 144–206; BP diastolic 76–147; PULSE 76–92; RESP 16–18; TEMP 36.3–37.2; O2SAT 92–97
[2020-09-15] MEDS: HYDROmorphone 1 mg/mL INJ 1 mL 2 MG IVP ×4 (02:03→18:43)
[2020-09-15] MEDS: nitroglycerin 1 gm/inch oint Pkt 1 INCH TOPICAL ×4 (04:22→21:39)
[2020-09-15 05:03] LABS: Basophils % 0.7 %; Eosinophils # 0.3 10^3/uL (0.0-0.8); Eosinophils % 5.7 %; Hematocrit 22.8 % (42.0-52.0); Hemoglobin 6.9 g/dL (11.7-16.6); Lymphocytes # 0.7 10^3/uL (0.8-4.8); Mean Corpuscular HGB Conc 30.3 g/dL (30.0-36.0); Mean Corpuscular Hemoglobin 25.1 pg (28.0-34.0); Mean Corpuscular Volume 82.9 fL (80-94); Mean Platelet Volume 10.3 fL (7.4-10.4); Monocytes # 0.6 10^3/uL (0.2-0.9); Monocytes % 9.5 %; Neutrophils % 71.8 %; Nucleated Red Blood Cells % 0 %; Platelet Count 338 10^3/cmm (130-400); Red Blood Count 2.75 10^6/uL (4.1-5.3)
[2020-09-15 05:26] LABS: Alanine Aminotransferase 12 U/L (0-41); Albumin Level 2.9 g/dL (3.5-5.2); Alkaline Phosphatase 155 IU/L (40-130); Anion Gap 12.9 (5-19); Aspartate Amino Transferase 17 U/L (0-40); Blood Urea Nitrogen 27 mg/dL (6-20); Calcium 8.9 mg/dL (8.5-10.5); Carbon Dioxide 30 mmol/L (22-29); Chloride 96 mmol/L (98-107); Globulin 4.9 g/dL (1.3-4.6); Glomerular Filtration Rate 15.1 mL/min (90-130); Glucose 83 mg/dL (65-115); Osmolality Calculated 282 mOsm/kg (285-295); Potassium 4.9 mmol/L (3.5-5.1); Sodium 134 mmol/L (136-145); Total Bilirubin 0.6 mg/dL (0.15-1.2); Total Protein 7.8 g/dL (6.6-8.7)
[2020-09-15] MEDS: hyDRALAzine 20 mg/mL INJ 1 mL 10 MG IVP (05:37)
--- NOTE | 2020-09-15 07:08 | PM.PN ---
Subjective Subjective: Interval history: telenephrology cart not working. RN reports patient has chronic back and scrotal pain from edema Medications: Reviewed: Yes Vitals/I&O/Wt Last Vital Signs Temp 99.0 F 09/15/20 03:33 Pulse 79 09/15/20 03:33 Resp 18 09/15/20 03:33 BP 191/100 09/15/20 06:31 Pulse Ox 95 09/15/20 03:33 09/14/20 09/15/20 09/15/20 22:59 06:59 14:59 Intake Total 671 / 4.333 Output Total 0 / 0 0 / 0 Balance 671 / 2044.333 0 / 4.333 Weight last 48 hrs Weight 83.416 kg Data : 09/15/20 04:45 09/15/20 04:45 A&P Additional A&P Information 1. ESRD 2. Volume overload, anasarca, pulmonary edema, improving 3. Pulmonary hypertension, right heart strain, hepatosplenomegaly 4. Anemia, received 1u PRBC today 5. Severe hypertension Recommendation: amlodipine and minoxidil added Attestations Medical Necessity Statement*: per primary service Time Spent in Patient Care: less than 15 minutes Coding Level of Care Code Acute Machine Presser for Cristi Diane
[2020-09-15] MEDS: apixaban 5 mg Tablet PO ×2 (08:05→20:31)
[2020-09-15] MEDS: lisinopril 20 mg Tablet 40 MG PO (08:05)
[2020-09-15] MEDS: amlodipine 10 mg Tablet PO (08:06)
[2020-09-15] MEDS: pantoprazole DR 40 mg Tablet PO (08:06)
[2020-09-15] MEDS: minoxidil 10 mg Tablet PO ×2 (09:47→12:22)
[2020-09-15] MEDS: carvedilol 25 mg Tablet PO ×2 (09:47→20:32)
[2020-09-15] MEDS: polyethylene glycol 3350 Pkt 17 gm PO (12:21)
[2020-09-15] MEDS: sodium chloride 0.9% (100 ml) 100 ML 75 ML (12:28)
[2020-09-15] MEDS: HYDROcodone-acetaminophen 5-325 mg Tablet 1 TAB PO ×2 (14:25→20:37)
--- NOTE | 2020-09-15 14:54 | PC.NURSE ---
Late entry for 1200: Patients IV infiltrated while blood was running. New IV was started. Blood was started prior to the 20 minutes, it was double checked by CRIME, and restarted.
[2020-09-15] MEDS: cloNIDine 0.1 mg Tablet 0.2 MG PO ×2 (15:51→20:31)
[2020-09-15] MEDS: ALPRAZolam 0.5 mg Tablet PO (15:51)
[2020-09-15] MEDS: docusate sodium 100 mg Capsule PO (17:43)
--- NOTE | 2020-09-15 19:38 | PM.PN ---
Subjective Subjective: Interval history: Patient was complaining of chronic lower back pain.He was also very anxious this morning, wanted to leave AMA, we explained to him the importance of staying in the hospital,we told him that his hemoglobin has dropped to 6.9 in spite of 1 unit PRBC transfusion, and the need for transfusion as well as the need to monitor the hemoglobin, given the fact that he is on full anticoagulation with Eliquis. After much persuasion patient decided to stay overnight. Medications: Reviewed: Yes Vitals/I&O/Wt Last Vital Signs Temp 98.9 F 09/15/20 16:00 Pulse 78 09/15/20 16:00 Resp 16 09/15/20 18:43 BP 155/84 09/15/20 16:00 Pulse Ox 94 09/15/20 16:00 09/15/20 09/15/20 09/15/20 06:59 14:59 22:59 Intake Total 930 / 930 120 / 1050 Output Total 0 / 0 Balance 0 / 4.333 930 / 930 120 / 1050 Weight last 48 hrs Weight 83.416 kg Physical Exam Const: COMMON NORMALS: patient oriented x3 HENMT: COMMON NORMALS: normocephalic and atraumatic HEAD & SCALP: normocephalic and atraumatic Chest: CHEST: Yes Symmetrical chest wall rise OTHER: Minimal B/L Basal Crackles Resp: COMMON NORMALS: normal respiratory effort, No retractions, No use of accessory muscles and clear to auscultation bilaterally EFFORT & INSPECTION: Yes symmetric chest movement AUSCULTATION: clear to auscultation bilaterally Cardio: COMMON NORMALS: regular rate, regular rhythm, S1 normal heart sound present, S2 normal heart sound present, No gallops present (Cardio), No murmurs present (Cardio), No rub (Cardio) and Peripheral pulses 2+ throughout RATE: regular rate RHYTHM: regular rhythm HEART SOUNDS: S1 normal heart sound present and S2 normal heart sound present PERIPHERAL PULSES: Peripheral pulses 2+ throughout GI: COMMON NORMALS: Soft to palpation, non-tender, No hepatosplenomegaly present and no masses AUSCULTATION: Yes normoactive bowel sounds PALPATION: Yes Soft to palpation and Yes No hepatosplenomegaly present RECTAL EXAM: Yes deferred OTHER: Distended abdomen. Extremity: NARRATIVE EXTREMITY EXAM: 2+ B/L Pitting edema present in both l/e Neuro: COMMON NORMALS: patient oriented x3 Data : 09/15/20 04:45 09/15/20 04:45 A&P Assessment and plan (1) Anasarca: Significant fluid overload, that may be compounded with patient's compliance with dialysis overall or fluid restriction. Either way dialysis will be the most effective method to reduce his total body fluid. Received dialysis September 13, and I believe there are plans for it again today. Status: Acute (2) Hemoptysis: Patient complaints of hemoptysis, and concomitant dyspnea brings up concern of pulmonary emboli. Patient without hypotension, or significant tachycardia currently. I have ordered a CTA, which is now back demonstrating indeterminate pulmonary embolus left lung. Heparin drip secondary to concordant CT findings of right heart strain, enlargement of pulmonary arteries consistent with pulmonary hypertension. Venous duplex lower extremities was negative. Echocardiogram demonstrated EF 50 to 55%, abnormal diastolic dysfunction and moderate pulmonary hypertension. Pericardial effusion was trivial. I believe his pulmonary hypertension could be secondary to pulmonary embolism, or perhaps chronic fluid overload from noncompliance with fluid restriction/noncompliance with dialysis treatments. Will need to transition to oral anticoagulation prior to discharge if hemoglobin remained stable. Status: Acute (3) Congestive heart failure: Secondary to fluid overload. Consistent with acute diastolic heart failure. Effective means of reducing fluid is dialysis. He has already started to improve Elevated troponin consistent with type II elevation. See echocardiogram results listed above Status: Acute (4) Anemia: Likely secondary to chronic kidney disease. Add Protonix Awaiting stool Hemoccult Hemoglobin has drifted down to 7, despite dialysis. No clear evidence for active bleeding. S/P 1 U PRBC Transfusion hb : was 6.9. Will transfuse another unit today.CBC Am. Likely will have to discontinue Eliquis in Light of dropping H/H. Status: Acute (5) End-stage renal disease on hemodialysis: Nephrology consult for dialysis Status: Chronic (6) Hypertension: Continue many of his home medications, with addition of nitroglycerin ointment. Hydralazine as needed Blood pressure has markedly improved with above as well as dialysis. Status: Chronic Additional A&P Information Hepatomegaly, elevated INR. Hepatitis panel recently negative. I suspect this is congestion from chronic heart failure. Acute respiratory failure, hypoxic. Secondary to fluid overload. Improved. Currently on 2 L of oxygen Tobacco dependency. Counseled on abstinence. Full code Heparin for DVT prophylaxis. May transition out of ICU today. Attestations Medical Necessity Statement*: Patient needs to be in hospital for the management of above defined problems Coding Level of Care Code Acute Petrology Teacher for Cristi Fwd Diagnoses Anasarca R60.1 Hemoptysis R04.2 Congestive heart failure I50.9 Anemia D64.9 End-stage renal disease on hemodialysis N18.6; Z99.2 Hypertension I10
[2020-09-15] MEDS: terazosin 5 mg Capsule 10 MG PO (20:32)
[2020-09-16] VITALS (8 sets, daily range): BP systolic 113–134; BP diastolic 62–70; PULSE 80–86; RESP 16–20; TEMP 36.6–37.6; O2SAT 93–95
[2020-09-16] MEDS: HYDROmorphone 1 mg/mL INJ 1 mL 2 MG IVP (01:13)
[2020-09-16] MEDS: nitroglycerin 1 gm/inch oint Pkt 1 INCH TOPICAL ×2 (04:02→10:01)
[2020-09-16 05:18] LABS: Basophils % 0.8 %; Eosinophils # 0.3 10^3/uL (0.0-0.8); Eosinophils % 5.2 %; Hematocrit 26.3 % (42.0-52.0); Hemoglobin 8.3 g/dL (11.7-16.6); Lymphocytes # 0.7 10^3/uL (0.8-4.8); Lymphocytes % 12.4 %; Mean Corpuscular HGB Conc 31.6 g/dL (30.0-36.0); Mean Corpuscular Hemoglobin 25.9 pg (28.0-34.0); Mean Corpuscular Volume 81.9 fL (80-94); Mean Platelet Volume 10.2 fL (7.4-10.4); Monocytes # 0.5 10^3/uL (0.2-0.9); Monocytes % 9.2 %; Neutrophils # 3.78 10^3/uL (1.8-7.7); Neutrophils % 72.2 %; Nucleated Red Blood Cells % 0 %; Platelet Count 337 10^3/cmm (130-400); Red Blood Count 3.21 10^6/uL (4.1-5.3); Red Cell Distribution Width 18.7 % (12.1-15.1); White Blood Count 5.2 10^3/uL (4.0-10.0)
[2020-09-16 05:35] LABS: Blood Urea Nitrogen 44 mg/dL (6-20); Calcium 8.8 mg/dL (8.5-10.5); Carbon Dioxide 26 mmol/L (22-29); Chloride 92 mmol/L (98-107); Glucose 83 mg/dL (65-115); Osmolality Calculated 280 mOsm/kg (285-295); Sodium 130 mmol/L (136-145)
[2020-09-16 05:38] LABS: Anion Gap 16.9 (5-19); Potassium 4.9 mmol/L (3.5-5.1)
[2020-09-16] MEDS: cloNIDine 0.1 mg Tablet 0.2 MG PO (08:00)
[2020-09-16] MEDS: polyethylene glycol 3350 Pkt 17 gm PO (08:00)
[2020-09-16] MEDS: HYDROcodone-acetaminophen 5-325 mg Tablet 1 TAB PO (08:00)
[2020-09-16] MEDS: docusate sodium 100 mg Capsule PO (08:01)
[2020-09-16] MEDS: apixaban 5 mg Tablet PO (08:01)
[2020-09-16] MEDS: amlodipine 10 mg Tablet PO (08:01)
[2020-09-16] MEDS: lisinopril 20 mg Tablet 40 MG PO (08:01)
[2020-09-16] MEDS: ALPRAZolam 0.5 mg Tablet PO (08:01)
[2020-09-16] MEDS: pantoprazole DR 40 mg Tablet PO (08:01)
[2020-09-16] MEDS: minoxidil 10 mg Tablet 20 MG PO (08:06)
--- NOTE | 2020-09-16 09:01 | P.PN_ITS ---
Subjective Subjective: Interval history: No new issues today. He feels fine. Slightly fatigued but otherwise has no specific complaints. Chronic lower extremity edema. No shortness of breath at rest. No other uremic symptoms. Did receive dialysis on Thursday Vitals/I&O/Wt Last Vital Signs Temp 97.9 F 09/16/20 07:40 Pulse 82 09/16/20 07:45 Resp 20 H 09/16/20 07:45 BP 134/70 09/16/20 08:00 Pulse Ox 94 09/16/20 07:45 09/15/20 09/16/20 09/16/20 22:59 06:59 14:59 Intake Total 200 / 1130 440 / 1570 Balance 200 / 1130 440 / 1570 Weight last 48 hrs Weight 86.5 kg Weight 83.416 kg Physical Exam Narrative: EXAM NARRATIVE: Constitutional: Awake, comfortable HEENT: Wet mucosa, no jvp, non icteric Lungs: Bilaterally clear without discernible wheeze or rales in all lung zones CVS: S1 S2, no murmurs Abdo: Soft, BS ok Ext 4: 2-3+ edema, peripheral perfusion with no cyanosis Neurological: Grossly non-focal Data : 09/16/20 05:08 09/16/20 05:08 A&P Additional A&P Information 1. ESRD We will plan for dialysis for tomorrow, continue Thursday schedule. 2K, UF 3-4 L Dose medication for GFR less than 15 on dialysis. 2. Hypertension and anasarca. Hemodynamics currently reviewed, blood pressure remains well controlled. Will stop minoxidil as this can be associated with significant edema. Would favor getting him down to dry weight using ultrafiltration with dialysis. 3. Anemia. Hemoglobin is currently stable, iron and EPO as outpatient in outpatient dialysis clinic 4. Chemistry Minor aberration, noncritical, continue to follow Thank you for consultation, it is a pleasure to follow these cases with you Exam and interview performed with aid of bedside RN using telemedicine Time spent 20 min inc > 50% of time in face to face counseling Caden Salazar MD [facility] [phone] Attestations Medical Necessity Statement*: Eval for ESRD Coding Level of Care Code Acute Operating Room Specialist for Chg Roxi
[2020-09-16] MEDS: carvedilol 25 mg Tablet PO (10:01)
--- NOTE | 2020-09-16 10:58 | PC.SOCIAL ---
Pg 2 IMM Explained to pt Pg 2 IMM. No questions voiced. Provided pt a copy. Signed, dated, & timed a copy & placed in chart.
--- NOTE | 2020-09-16 13:05 | PM.DCS ---
Discharge Providers Date of Admission: 09/13/20 07:41 Date of Discharge: September 16, 2020 Attending Provider at Admission: Db Bauman MD Attending Provider at Discharge: Carroll Hercules MD Primary Care Provider: Mal Junior Diagnoses at Discharge Discharge Diagnosis (1) Anasarca: Status: Chronic (2) Hemoptysis: Status: Resolved (3) Congestive heart failure: Status: Chronic (4) Anemia: Status: Chronic (5) End-stage renal disease on hemodialysis: Status: Chronic (6) Hypertension: Status: Chronic Reason for Visit Reason for Visit: difficulty breathing, back pain Hospital Course Hospital Course 40-year-old male with past medical history of, uncontrolled hypertension end-stage renal disease dialysis dependent Thursday, COPD, anxiety with depression, was admitted with chief complaint of worsening shortness of breath as well as generalized swelling, worsening shortness of breath and generalized swelling has been going on for a month, it is more marked when he misses his dialysis, he occasionally does miss his dialysis, patient was also complaining of worsening cough with occasional hemoptysis. He was admitted for management of anasarca, Hemoptysis, decompensated diastolic congestive heart failure, chronic anemia of CKD, uncontrolled hypertension. He was started on routine hemodialysis during the admission, to which he responded very well, shortness of breath improved, for his anasarca he will have to continue with routine dialysis, that will help him overall with his fluid state, during his hospital stay he also received CT angio of the chest as on admission the patient was hypotensive tachycardic and was having hemoptysis, CT angiogram chest with contrast was indeterminate for PE in left lung, given the high clinical suspicion, as well as right heart strain seen on CT he was started on heparin and later was transitioned to Eliquis p.o. 5 mg every 12 hours daily.Venous duplex lower extremities was negative. Echocardiogram demonstrated EF 50 to 55%, abnormal diastolic dysfunction and moderate pulmonary hypertension. Pericardial effusion was trivial. pulmonary hypertension seen on echo, could be possible due to PE or volume overload.Hospital course was also complicated by development of anemia, requiring 2 units PRBC transfer, anemia is likely secondary to anemia of renal disease, no obvious source of bleeding was identified.Post post 2 units PRBC transfusion his hemoglobin remained Stable. Patient has been educated regarding complications of anticoagulation, most important being bleeding, he has been educated on the signs and symptoms of blood loss, CBC should be monitored very closely, and if the patient fails to tolerate anticoagulation due to bleeding, either repeat CT angiogram chest should be done, to confirm the PE diagnosis, or anticoagulation should be withheld, depending upon the clinical course of the patient after being on anticoagulation.Patient has been started on Protonix also. There was no fresh episodes of hemoptysis during the hospital stay.Trazodone was discontinued during this hospital stay as the patient was not tolerating it well. At the time of discharge he was saturating well on room air, no home oxygen was needed. 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 Physical Exam Const: COMMON NORMALS: patient oriented x3 HENMT: COMMON NORMALS: normocephalic, atraumatic, hearing grossly normal bilaterally and external ears normal HEAD & SCALP: normocephalic and atraumatic EXTERNAL EAR: Yes external ears normal Eye: COMMON NORMALS: no scleral icterus GENERAL EYE: appearance normal, both eyes and all related structures Chest: COMMONS NORMALS: normal inspection of the chest and normal palpation of entire chest wall CHEST: Yes Symmetrical chest wall rise Resp: OTHER: B/L BASAL CRACKLES PRESENT IN BOTH QUARLES Cardio: COMMON NORMALS: regular rate, regular rhythm, S1 normal heart sound present, S2 normal heart sound present, No gallops present (Cardio), No murmurs present (Cardio), No rub (Cardio) and Peripheral pulses 2+ throughout RATE: regular rate RHYTHM: regular rhythm HEART SOUNDS: S1 normal heart sound present and S2 normal heart sound present PERIPHERAL PULSES: Peripheral pulses 2+ throughout GI: COMMON NORMALS: Soft to palpation, non-tender, No hepatosplenomegaly present and no masses AUSCULTATION: Yes normoactive bowel sounds PALPATION: Yes Soft to palpation and Yes No hepatosplenomegaly present RECTAL EXAM: Yes deferred OTHER: Distended abdomen, with fluid thrill. Extremity: COMMON NORMALS: no clubbing, cyanosis or edema and no pedal edema Neuro: COMMON NORMALS: patient oriented x3 Discharge Data Data Completed and Pending: Completed Studies During Hospitalization Category Date Time Status CT angio chest PE protcl [id number] Stat Cat Scan 09/13/20 09:13 Completed XR chest 1V sabino ble [id number] Stat Exams 09/13/20 04:24 Completed CV echo complete* [id number] Routine Ultrasound 09/13/20 10:20 [place] [id number] Routin e Ultrasound 09/13/20 09:18 Completed US abdomen comple te* [id number] Routine Ultrasound 09/13/20 14:19 Completed Pending at discharge Category Date Time Status Basic Metabolic P tennille AM LABS Lab 09/17/20 04:00 Ordered Complete Blood Co unt w/Auto AM LABS Lab 09/17/20 04:00 Ordered Immunochemical Fe nikos OCB Routine Lab 09/13/20 10:28 Uncollected Platelet Count Q2 D Lab 09/17/20 04:00 Ordered Urinalysis Routin e Lab 09/13/20 09:17 Uncollected Labs from last 24 hours 09/16/20 09/16/20 09/14/20 05:08 05:08 08:05 WBC 5.2 RBC 3.21 L Hgb 8.3 L Hct 26.3 L MCV 81.9 MCH 25.9 L MCHC 31.6 RDW 18.7 H Plt Count 337 MPV 10.2 Neut % (Auto) 72.2 Lymph % (Auto) 12.4 Hamlin % (Auto) 9.2 Eos % (Auto) 5.2 Baso % (Auto) 0.8 Neut # (Auto) 3.78 Lymph # (Auto) 0.7 L Hamlin # (Auto) 0.5 Eos # (Auto) 0.3 Baso # (Auto) 0.0 Nucleated RBC % (a uto) 0 Nucleated RBCs # 0.0 Sodium 130 L Potassium 4.9 Chloride 92 L Carbon Dioxide 26 Anion Gap 16.9 BUN 44 H Creatinine 5.8 H* GFR Calculation 11.0 L Glucose 83 Calculated Osmolal ity 280 L Calcium 8.8 Blood Type O Positive Rho(D) Type Positive / 4+ Antibody Screen Negative Crossmatch See Detail Vitals: Last Vital Signs Temp 98.3 F 09/16/20 10:45 Pulse 82 09/16/20 10:45 Resp 18 09/16/20 10:45 BP 113/69 09/16/20 10:45 Pulse Ox 94 09/16/20 10:45 Discharge Plan Discharge Patient Disposition: Home Condition: Stable Prescriptions: New Eliquis 5 mg Tablet 5 mg PO BID@0900,2100 Qty: 60 RF: 3 alprazolam 0.5 mg Tablet 0.5 mg PO TID PRN (Reason: Anxiety) 30 Days Qty: 15 RF: 0 Continued carvedilol 25 mg tablet 25 mg PO Q12H RF: 0 spironolactone 25 mg tablet 50 mg PO DAILY@08 RF: 0 calcium acetate 667 mg tablet See Rx Instructions .ROUTE .COMPLEX RF: 0 levalbuterol tartrate [Xopenex HFA] 45 mcg/actuation HFA aerosol inhaler 2 inh INHALATION Q6H PRN (Reason: shortness of breath or wheezing) Qty: 15 RF: 2 docusate sodium 100 mg Capsule 200 mg PO BID@08,20 RF: 0 lisinopril 20 mg tablet 20 mg PO DAILY RF: 0 Incruse Ellipta 62.5 mcg/actuation blister with device 1 inh INHALATION DAILY@0800 RF: 0 hydrocodone-acetaminophen 5-325 mg tablet 1 tab PO TID PRN (Reason: Pain) RF: 0 Stimulant Laxative Plus 8.6-50 mg tablet 1 tab PO BID RF: 0 minoxidil 2.5 mg Tablet 20 mg PO BID RF: 0 isosorbide mononitrate 60 mg tablet extended release 24 hr 60 mg PO DAILY RF: 0 clonidine HCl 0.2 mg tablet 0.2 mg PO BID PRN (Reason: Blood Pressure) RF: 0 pantoprazole 40 mg tablet,delayed release (DR/EC) 40 mg PO DAILY RF: 0 bisacodyl 5 mg tablet,delayed release (DR/EC) 5 mg PO BID PRN (Reason: Constipation) RF: 0 terazosin 10 mg capsule 10 mg PO BEDTIME@1999 RF: 0 Discontinued trazodone 50 mg Tablet 50 mg PO BEDTIME@20 RF: 0 Discharge Orders: Discharge Order (Routine); Ordered 09/16/20 Ordered By: Carroll Hercules Referrals: Mal Junior [Primary Care Provider] - 1 week (Please call office tomorrow to make follow up appointment. ) Discharge Diet: Low Salt Discharge Activity: Resume usual activity Patient Instructions: Anemia, Alprazolam (By mouth), Apixaban (By mouth), Heart Failure (GEN), Ileus (GEN), Anxiety (GEN), Anticoagulation Therapy, COPD Stoplight, Opioid Safety Discharge Attestations Time Spent in Discharge Care*: less than 30 min Specific Discharge Activities: educating patient, educating and/or supporting family/caregiver, discussing with pcp/other providers, discussing with supportive employment case manager/social workers/dc planners, documenting/other paperwork and evaluating patient/reviewing data Status at Discharge: Cognitive status at discharge: cognitively intact, Behavioral status at discharge: cooperative, Functional status at discharge: independent ambulation Overall status at discharge: patient is back to baseline Quality Metrics Clinical Quality Measures During this hospital stay, did patient experience: None Coding Level of Care Code Acute g DC note Diagnoses Anasarca R60.1 Hemoptysis R04.2 Congestive heart failure I50.9 Anemia D64.9 End-stage renal disease on hemodialysis N18.6; Z99.2 Hypertension I10
--- NOTE | 2020-09-16 16:28 | PC.NURSE ---
Discharge instructions given to and patient, all questions answered. Patient states verbal understanding. IV catheter removed, tip intact. Patient tolerated well. Patient discharged at this time in stable condition in the care of his .
--- NOTE | 2020-09-17 12:25 | PC.RESP ---
Smoking Cessation and Pulmonary Rehab information sent to patient.
== END 2020-09-16 16:30 | disposition home or self-care (01) | DRG 291 ==
LOC: ER 07:20 → ICU 07:56 → MEDSURG 09-14 14:30
PROVIDERS: Emergency Medicine; Internal Medicine; Admitting Provider Internal Medicine; Emergency Provider Family Medicine; PCP Family Medicine; Visit Provider Internal Medicine
DX: I13.2 Hypertensive heart and chronic kidney disease with heart failure and with stage 5 chronic kidney disease, or end stage renal disease (principal); I50.33 Acute on chronic diastolic (congestive) heart failure; N18.6 End stage renal disease; J96.01 Acute respiratory failure with hypoxia; I26.99 Other pulmonary embolism without acute cor pulmonale; R04.2 Hemoptysis; D63.1 Anemia in chronic kidney disease; I27.20 Pulmonary hypertension, unspecified; R16.2 Hepatomegaly with splenomegaly, not elsewhere classified; F17.200 Nicotine dependence, unspecified, uncomplicated; F41.8 Other specified anxiety disorders; Z99.2 Dependence on renal dialysis; Z79.891 Long term (current) use of opiate analgesic
CPT/HCPCS: 36415; 36416; 36430; 71045; 71275; 76700; 80048; 80053; 82728; 82962; 83540; 83550; 83880; 84484; 85025; 85610; 85730; 86850; 86900; 86920; 87340; 90935; 93005; 93306; 93970; 96372; J0360; J1170; J1644; J2405; J3490; P9016; Q3014; Q4081; Q9967

== ENCOUNTER 2020-10-01 09:25 | Inpatient (IN) | payer MEDICARE, MEDICAID, SELFPAY ==
[2020-10-01] VITALS (10 sets, daily range): BP systolic 153–220; BP diastolic 83–113; PULSE 72–89; RESP 15–24; TEMP 36.9–37.1; O2SAT 93–98; BMI 28.3
--- NOTE | 2020-10-01 09:52 | CTR_ITS ---
PROCEDURE INFORMATION: Exam: CT Abdomen And Pelvis With Contrast Exam date and time: 10/01/2020 10:05 AM Age: 40 years old Clinical indication: Bloating and nausea and vomiting; Abdominal pain; Generalized; Patient HX: Abd pain and distention with n/v. End stage renal failure. TECHNIQUE: Imaging protocol: Computed tomography of the abdomen and pelvis with contrast. Radiation optimization: All CT scans at this facility use at least one of these dose optimization techniques: automated exposure control; mA and/or kV adjustment per patient size (includes targeted exams where dose is matched to clinical indication); or iterative reconstruction. Contrast material: VISI 320; Contrast volume: 75 ml; Contrast route: INTRAVENOUS (IV); COMPARISON: CT abdomen pelvis w con* [id number] 05/03/2020 3:19 PM RADIATION DOSE METRICS: Total DLP (mGy-cm): 1738.62 FINDINGS: Pleural spaces: There are trace pleural effusions that are decreased compared to the prior. Heart: The heart is enlarged. There is and unchanged small pericardial fluid collection present. Liver: The liver is enlarged and very heterogeneous in density. No discrete mass. The heterogeneous appearance of the liver could reflect cirrhosis or infiltrative neoplasm. The liver measures 24.2 cm in length. Gallbladder and bile ducts: Normal. No calcified stones. No ductal dilation. Pancreas: The pancreas is normal. Spleen: The spleen is normal. An accessory splenule is present. Adrenal glands: The adrenal glands are normal. Kidneys and ureters: There is bilateral renal cortical thinning and renal atrophy. No hydronephrosis or nephrolithiasis. Stomach and bowel: There is no evidence of intestinal perforation or obstruction. There is no evidence of colitis/diverticulitis. Appendix: A normal appendix is identified. Intraperitoneal space: There is a large volume of ascites. The ascites has increased compared to the prior exam. Vasculature: Unremarkable.No abdominal aortic aneurysm. Lymph nodes: enlarged bilateral inguinal lymph nodes with fatty centers measuring up to 2.3 cm in short axis on the right. Subcentimeter lymph nodes are noted in the retroperitoneum and along the pelvic sidewalls. Urinary bladder: The bladder is decompressed. Reproductive: Unremarkable as visualized. Bones/joints: There are unchanged there is bilateral spondylolysis of L5 with grade 1 spondylolisthesis of L5 on S1. No acute bony abnormality. Soft tissues: Unremarkable. CT/CT abdomen pelvis w con* [id number] IMPRESSION: 1. Large volume ascites increased compared to the prior exam. Hepatomegaly with very heterogeneous liver. 2. The heterogeneous appearance of the liver could reflect cirrhosis or infiltrative neoplasm. Abdomen/liver MRI would be most sensitive for further characterization. 3. Bilateral unchanged renal atrophy. 4. No bowel thickening or inflammatory changes. No ileus or obstruction. Radiation Dose CTDIVOL = (mGy): DLP = 1738.62 (mGy-cm)
[2020-10-01 10:11] LABS: Basophils # 0.1 10^3/uL (0.0-0.1); Eosinophils # 0.3 10^3/uL (0.0-0.8); Eosinophils % 3.8 %; Lymphocytes # 0.7 10^3/uL (0.8-4.8); Lymphocytes % 9.9 %; Mean Corpuscular Hemoglobin 25.5 pg (28.0-34.0); Mean Corpuscular Volume 82.2 fL (80-94); Mean Platelet Volume 9.2 fL (7.4-10.4); Monocytes # 0.5 10^3/uL (0.2-0.9); Monocytes % 7.9 %; Neutrophils # 5.27 10^3/uL (1.8-7.7); Neutrophils % 77.1 %; Nucleated Red Blood Cells % 0 %; Platelet Count 269 10^3/cmm (130-400); Red Blood Count 3.53 10^6/uL (4.1-5.3); Red Cell Distribution Width 19.9 % (12.1-15.1); White Blood Count 6.8 10^3/uL (4.0-10.0)
[2020-10-01] MEDS: iodixanol 320 mg/mL 100mL Btl IV (10:17)
[2020-10-01 10:26] LABS: Lactic Sepsis W/Reflex 0.6 mmol/L (0.5-2.2)
[2020-10-01] MEDS: cloNIDine 0.1 mg Tablet 0.2 MG PO (10:33)
[2020-10-01] MEDS: hyDRALAzine 20 mg/mL INJ 1 mL IVP (10:33)
[2020-10-01] MEDS: metoprolol tartrate 1 mg/1 mL SDV 5 mL 5 MG IV (10:33)
[2020-10-01 10:36] LABS: Alanine Aminotransferase 8 U/L (0-41); Albumin Level 3.3 g/dL (3.5-5.2); Alkaline Phosphatase 119 IU/L (40-130); Anion Gap 18.5 (5-19); Aspartate Amino Transferase 10 U/L (0-40); Blood Urea Nitrogen 51 mg/dL (6-20); Calcium 8.7 mg/dL (8.5-10.5); Carbon Dioxide 29 mmol/L (22-29); Chloride 94 mmol/L (98-107); Globulin 4.3 g/dL (1.3-4.6); Glomerular Filtration Rate 7.9 mL/min (90-130); Glucose 88 mg/dL (65-115); Osmolality Calculated 295 mOsm/kg (285-295); Potassium 5.5 mmol/L (3.5-5.1); Sodium 136 mmol/L (136-145); Total Bilirubin 0.4 mg/dL (0.15-1.2); Total Protein 7.6 g/dL (6.6-8.7)
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
[2020-10-01] MEDS: morphine 4 mg/mL SDV 1 mL 2 MG IVP (11:20)
[2020-10-01] MEDS: ondansetron 2 mg/ML SDV 2 mL 4 MG IVP (11:20)
--- NOTE | 2020-10-01 12:19 | P.CONIM_ITS ---
Providers/Reason For Consult Consulting Physician/Specialty*: tona rosario md / telenephrology Reason for Consult*: ESRD care Attending Physician: Tunde Umana MD Primary Care Provider: Mal Junior History of Present Illness History of Present Illness Mal Gibbs is a 40 year old male presented to ER w/ n/v, and b/l arm pain. he is very swollen and has missed some dialysis over the last week. pt is weak and SOB Review of Systems General: Reports: 10 or more systems reviewed and unremarkable except in HPI and below Narrative: weak, nausea, swollen, sob, edema, arm numbness, confusion, weakness. Meds/Allergies Home Medications and Allergies Home Medications Medication Instructions Recorded Confirmed Last Taken Type calcium acetate 667 mg tablet See Rx Instructions .ROUTE 01/24/20 10/01/20 09/27/20 History .COMPLEX tab carvedilol 25 mg tablet 25 mg PO Q12H tab 01/24/20 10/01/20 09/27/20 History levalbuterol tartrate 45 2 inh INHALATION Q6H PRN #15 gm 01/24/20 10/01/20 Unknown Rx mcg/actuation aerosol inhaler spironolactone 25 mg tablet 50 mg PO DAILY@08 tab 01/24/20 10/01/20 09/27/20 History docusate sodium 200 mg PO BID@08,20 04/13/20 10/01/20 05/03/20 History lisinopril 20 mg PO DAILY 04/13/20 10/01/20 09/27/20 History Incruse Ellipta 1 inh INHALATION DAILY@0800 05/03/20 10/01/20 09/30/20 History bisacodyl 5 mg PO BID PRN 09/13/20 10/01/20 09/27/20 History clonidine HCl 0.2 mg PO BID PRN 09/13/20 10/01/20 Unknown History hydrocodone-acetaminophen 1 tab PO TID PRN 09/13/20 10/01/20 Unknown History isosorbide mononitrate 60 mg PO DAILY 09/13/20 10/01/20 09/27/20 History minoxidil 20 mg PO BID 09/13/20 10/01/20 09/27/20 History pantoprazole 40 mg PO DAILY 09/13/20 10/01/20 09/27/20 History sennosides-docusate sodium 1 tab PO BID 09/13/20 10/01/20 09/27/20 History [Stimulant Laxative Plus] terazosin 10 mg PO BEDTIME@199909/13/20 10/01/20 09/27/20 History alprazolam 0.5 mg PO TID PRN 30 Days #15 tab 09/16/20 10/01/20 09/27/20 Rx apixaban [Eliquis] 5 mg PO BID@0900,2100 #60 tab 09/16/20 10/01/20 09/27/20 Rx Allergies Allergy/AdvReac Type Severity Reaction Status Date / Time No Known Allergies Allergy Verified 05/04/20 16:45 PFSH Acute PFSH: Medical History Anasarca Anemia Anxiety with depression Arteriovenous fistula for hemodialysis in place, secondary Congestive heart failure COPD (chronic obstructive pulmonary disease) Current smoker Degenerative disc disease, lumbar End-stage renal disease on hemodialysis Hemoptysis Hepatomegaly Hypertension Surgical History H/O hand surgery Amputation right 2&3 fingers 2017 History of adenoidectomy Family History Other Hypertension Denies family history of Diabetes Chronic kidney disease (CKD) Lung disease Cancer Stroke Social History Smoking and tobacco status: current every day smoker Second hand smoke exposure: Yes Smoking risk assessment/counseling performed?: Yes Alcohol intake: never Desire information about alcohol rehabilitation?: No Counseling given: No Desire information about substance/drug rehabilitation?: No Counseling given: No Adopted: No Caregiver/support person: No Lives independently: Yes Household members: spouse and family Housing: House Marital status: Number of children: 3 service: No Current occupational status: disabled Pets and animals: Yes Pets & animals: cat(s) and dog(s) History of recent travel: No Current gender identity: Male Vitals/I&O/Wt Last Vital Signs Temp 98.4 F 10/01/20 09:38 Pulse 89 10/01/20 09:38 Resp 24 H 10/01/20 11:20 BP 220/113 10/01/20 09:38 Pulse Ox 97 10/01/20 09:38 Weight last 48 hrs Weight 97.522 kg Physical Exam Narrative: EXAM NARRATIVE: vs noted uncomfortable in bed, anasarca heent- nc/at, eomi, anicteric neck + jvp lungs - dull bases and b/l crackles heart +s1, s2, +NASEEM abd soft, distended, ascites ext LUE AVF w/ thrill and bruit leg edema neuro- a,a, o x 2+ mood- depressed Data Micro: Micro: Microbiology 10/01/20 10:40 Blood Culture - Pr eliminary Blood SPECIMEN [facility] 10/01/20 10:30 Blood Culture - Pr eliminary Blood SPECIMEN [facility] A&P Additional A&P Information 40 yr old man 1. ESRD- HD now- 4 hrs, 2k, remove 4 l as tolerated 2. htn- monitor w/ hd 3. anasarca- limit IDWG 4. diastolic dysfunction 5. bone- mineral- metabolism of ESRD - monitor ca, phos, pth 6. anemia- hgb above baseline recent ferritin 1278. 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
[2020-10-01 13:30] LABS: Hepatitis B Surface AB 146.6 (11.5-1000); Hepatitis B Surface Antigen Non-Reactive (Nonreactive); Hepatitis C Virus Antibody Non-Reactive (Nonreactive)
--- NOTE | 2020-10-01 13:44 | PM.HP ---
Providers/Chief Complaint Admitting Physician: Tunde Umana MD Primary Care Provider: Mal Junior Chief Complaint: Numbness in Arms, Possible Sepsis History of Present Illness Mal Gibbs is a 40 year old male with a past medical history of end-stage renal disease hemodialysis dependent, CHF, COPD, current smoker, history of anemia, history of high suspicion of pulmonary emboli on Eliquis, hypertension, hyperlipidemia, who presents to [facility] due to feeling unwell, and an abdominal pain. Patient tells me that he is not been feeling well for the last few days, he might of had a fever 1 day, is not sure, he started developing abdominal pain, increased abdominal distention. He missed dialysis on Thursday, but is adamant he went to dialysis on Thursday. Mildly nauseous, some has some acid reflux. No sick contacts, no known exposure to COVID-19. Has not had a bowel movement, no diarrhea. No dysuria, no hematuria. Denies a history of SBP. Denies a history of alcohol use. Denies history of esophageal varices. Review of Systems Const: Reports: fever(s), fatigue and malaise; Denies: chills Eyes: Denies: change in vision or blurry vision ENMT: Denies: nasal congestion Card: Denies: chest pain or palpitations Resp: Denies: dyspnea, productive cough, non-productive cough or wheezing GI: Reports: abdominal pain and nausea; Denies: vomiting, hematemesis, diarrhea, constipation, hematochezia or melena : Denies: flank pain, difficulty urinating, dysuria or urinary frequency Musc: Denies: neck pain or back pain Skin/Breast: Reports: rash Neuro: Denies: headache(s), dizziness or vertigo Endo: Denies: polydipsia Medications/Allergies Home Medications Medication Instructions Recorded Confirmed Last Taken Type calcium acetate 667 mg tablet See Rx Instructions .ROUTE 01/24/20 10/01/20 09/27/20 History .COMPLEX tab carvedilol 25 mg tablet 25 mg PO Q12H tab 01/24/20 10/01/20 09/27/20 History levalbuterol tartrate 45 2 inh INHALATION Q6H PRN #15 gm 01/24/20 10/01/20 Unknown Rx mcg/actuation aerosol inhaler spironolactone 25 mg tablet 50 mg PO DAILY@08 tab 01/24/20 10/01/20 09/27/20 History docusate sodium 200 mg PO BID@08,20 04/13/20 10/01/20 05/03/20 History lisinopril 20 mg PO DAILY 04/13/20 10/01/20 09/27/20 History Incruse Ellipta 1 inh INHALATION DAILY@0800 05/03/20 10/01/20 09/30/20 History bisacodyl 5 mg PO BID PRN 09/13/20 10/01/20 09/27/20 History clonidine HCl 0.2 mg PO BID PRN 09/13/20 10/01/20 Unknown History hydrocodone-acetaminophen 1 tab PO TID PRN 09/13/20 10/01/20 Unknown History isosorbide mononitrate 60 mg PO DAILY 09/13/20 10/01/20 09/27/20 History minoxidil 20 mg PO BID 09/13/20 10/01/20 09/27/20 History pantoprazole 40 mg PO DAILY 09/13/20 10/01/20 09/27/20 History sennosides-docusate sodium 1 tab PO BID 09/13/20 10/01/20 09/27/20 History [Stimulant Laxative Plus] terazosin 10 mg PO BEDTIME@199909/13/20 10/01/20 09/27/20 History alprazolam 0.5 mg PO TID PRN 30 Days #15 tab 09/16/20 10/01/20 09/27/20 Rx apixaban [Eliquis] 5 mg PO BID@0900,2100 #60 tab 09/16/20 10/01/20 09/27/20 Rx Allergies Allergy/AdvReac Type Severity Reaction Status Date / Time No Known Allergies Allergy Verified 05/04/20 16:45 PFSH Acute PFSH: Medical History Anasarca Anemia Anxiety with depression Arteriovenous fistula for hemodialysis in place, secondary Congestive heart failure COPD (chronic obstructive pulmonary disease) Current smoker Degenerative disc disease, lumbar End-stage renal disease on hemodialysis Hemoptysis Hepatomegaly Hypertension Surgical History H/O hand surgery Amputation right 2&3 fingers 2017 History of adenoidectomy Family History Other Hypertension Denies family history of Diabetes Chronic kidney disease (CKD) Lung disease Cancer Stroke Social History Smoking and tobacco status: current every day smoker Second hand smoke exposure: Yes Smoking risk assessment/counseling performed?: Yes Alcohol intake: never Desire information about alcohol rehabilitation?: No Counseling given: No Desire information about substance/drug rehabilitation?: No Counseling given: No Adopted: No Caregiver/support person: No Lives independently: Yes Household members: spouse and family Housing: House Marital status: Number of children: 3 service: No Current occupational status: disabled Pets and animals: Yes Pets & animals: cat(s) and dog(s) History of recent travel: No Current gender identity: Male Vitals/I&O/Wt Last Vital Signs Temp 98.8 F 10/01/20 13:25 Pulse 87 10/01/20 13:25 Resp 18 10/01/20 13:25 BP 163/96 10/01/20 13:25 Pulse Ox 95 10/01/20 13:25 Weight last 48 hrs Weight 97.522 kg Physical Exam Const: COMMON NORMALS: no acute distress and patient oriented x3 HENMT: COMMON NORMALS: normocephalic HEAD & SCALP: normocephalic Eye: COMMON NORMALS: Equal, round and reactive pupils present and EOMs intact bilaterally GENERAL EYE: appearance normal, both eyes and all related structures PUPIL: Yes Equal, round and reactive pupils present Neck/C-Spine: COMMON NORMALS: full ROM and no lymphadenopathy THYROID: Thyroid normal Lymph: LYMPHATIC: no lymphadenopathy noted Resp: COMMON NORMALS: normal respiratory effort, No retractions, No use of accessory muscles and clear to auscultation bilaterally AUSCULTATION: clear to auscultation bilaterally Cardio: COMMON NORMALS: regular rate, regular rhythm, S1 normal heart sound present, S2 normal heart sound present, No gallops present (Cardio), No clicks present (Cardio) and No murmurs present (Cardio) RATE: regular rate RHYTHM: regular rhythm HEART SOUNDS: S1 normal heart sound present and S2 normal heart sound present GI: COMMON NORMALS: Soft to palpation INSPECTION: Yes normal to inspection and Yes abdominal distension PALPATION: Yes Soft to palpation and Yes Tenderness to palpation present (GI) (Generalized tenderness) Extremity: COMMON NORMALS: normal to inspection, full ROM and no pedal edema Neuro: COMMON NORMALS: patient oriented x3, CN's II-XII intact bilaterally, moves all extremities and no focal motor deficits Psych: COMMON NORMALS: mental status grossly normal, Normal thought process present and cooperative THOUGHT PROCESS: Normal thought process present Data : 10/01/20 10:00 10/01/20 10:00 Micro: Microbiology 10/01/20 10:40 Blood Culture - Preliminary Blood SPECIMEN COLLECTED 10/01/20 10:30 Blood Culture - Preliminary Blood SPECIMEN COLLECTED A&P Assessment and plan (1) Abdominal distention: -Likely secondary to fluid overload from missed dialysis days, -However given abdominal pain, abdominal distention, complains of fevers, needs to be evaluated for spontaneous bacterial peritonitis Plan: -Monitor for fevers -Start Cipro and Flagyl -We will hold off on albumin -Unfortunately do not have a radiologist in house, will consult radiology tomorrow morning for paracentesis, paracentesis cultures -We will have dialysis today -Morphine for pain -Hold Eliquis, heparin drip for history of PE, heparin drip will have to be held before paracentesis, will coordinate with radiology department tomorrow morning -Full code -SCDs -Cardiac diet Status: Acute (2) Constipation: Status: Acute (3) COPD (chronic obstructive pulmonary disease): Status: Chronic (4) Arteriovenous fistula for hemodialysis in place, secondary: Status: Acute (5) Hepatomegaly: Status: Acute (6) Smoking addiction: Status: Acute (7) Fluid overload: Status: Acute (8) ESRD (end stage renal disease): Status: Acute (9) Anemia: Acute on chronic anemia, did require 2 units PRBC during last hospital admission, no overt signs of bleeding, Hemoccult stools, heparin drip as above, monitor hemoglobin Status: Acute (10) Pulmonary embolism: ct angio: 09/13/2020 . No significant pulmonary embolism centrally. Inconclusive for very tiny peripheral LEFT lower lobe pulmonary artery subsegmental emboli versus poor opacification. 2. Significant change in appearance of the heart and pulmonary artery since 12/01/2018. 3. Marked cardiac enlargement with RIGHT heart strain. 4. Marked enlargement of the pulmonary artery consistent with pulmonary hypertension. Pulmonary artery diameter has increased from 2.8 to 4.0 cm -cardiac echo showed: LV systolic function is normal with EF of 50-55% Diastolic function is abnormal Biatrial enlargement Mild mitral regurgitation Moderate pulmonary hypertension Trivial pericardial effusion and moderate pleural effusion noted -Venous duplex negative forvenous duplex negative for dvt -Due to complaints of shortness of breath on last hospital admission, evidence of right heart strain, CT angiogram of the chest was indeterminate for PE, decision was made to anticoagulate with Eliquis -Hold Eliquis, start heparin drip, monitor hemoglobin Status: Acute (11) PHT (pulmonary hypertension): Status: Acute Additional A&P Information Of note patient is wanted by the behavioral pediatrician department, I was told our in-house security team is managing this, monitoring patient Attestations Medical Necessity Statement*: Patient requires hospitalization, inpatient, fro fluid overload and sbp Coding Level of Care Code Acute Absorption And Adsorption Engineer for Chg Fwd Diagnoses Abdominal distention R14.0 Constipation K59.00 COPD (chronic obstructive pulmonary disease) J44.9 Arteriovenous fistula for hemodialysis in place, secondary Z99.2 Hepatomegaly R16.0 Smoking addiction F17.200 Fluid overload E87.70 ESRD (end stage renal disease) N18.6 Anemia D64.9 Pulmonary embolism I26.99 PHT (pulmonary hypertension) I27.20
[2020-10-01] MEDS: pantoprazole 40 mg SDV IVP (14:51)
[2020-10-01] MEDS: ciprofloxacin 400 MG/200 ML PREMIX 200 MG IV (14:51)
[2020-10-01] MEDS: polyethylene glycol 3350 Pkt 17 gm PO (14:55)
[2020-10-01] MEDS: carvedilol 25 mg Tablet PO (14:55)
--- NOTE | 2020-10-01 15:19 | PC.NURSE ---
Patient to dialysis at this time.
--- NOTE | 2020-10-01 15:25 | PC.NURSE ---
Dr. Umana gave a verbal order at this time to hold Heparin drip until after dialysis.
[2020-10-01 15:34] LABS: Procalcitonin 0.49 ng/mL (0-0.5); Thyroid Stimulating Hormone 9.37 uIU/mL (0.27-4.20)
[2020-10-01 15:45] LABS: C Reactive Protein 25.5 mg/L (0.0-4.9)
--- NOTE | 2020-10-01 15:46 | PC.NURSE ---
Patient has what he calls chigger biters all over his arms and abdomen
[2020-10-01 15:53] LABS: Erythrocyte Sedimentation Rate 64 mm/hr (0-10)
[2020-10-01 16:00] LABS: NT Pro B Type Natriuretic Pept > 70000 pg/mL (0-125)
[2020-10-01 18:10] LABS: Hematocrit 26.9 % (42.0-52.0); Hemoglobin 8.5 g/dL (11.7-16.6)
[2020-10-01 18:33] LABS: Ammonia 19 umol/L (16-60)
--- NOTE | 2020-10-01 18:50 | PC.NURSE ---
Report to Haley RN at this time.
[2020-10-01] MEDS: morphine 4 mg/mL SDV 1 mL 1 MG IVP (19:11)
[2020-10-01 20:09] LABS: Partial Thromboplastin Time 43.9 SECONDS (23.9-36.7)
[2020-10-01] MEDS: metroNIDAZOLE IV 500 MG/100 ML PREMIX 100 MG IV (20:16)
[2020-10-01] MEDS: sucralfate 1 gm Tablet PO (20:16)
[2020-10-01] MEDS: docusate sodium 100 mg Capsule 200 MG PO (20:16)
[2020-10-01] MEDS: terazosin 5 mg Capsule 10 MG PO (20:16)
[2020-10-01] MEDS: heparin 5,000 unit/mL INJ 1 mL IV (22:24)
[2020-10-01] MEDS: heparin drip 25,000 UNIT/500 ML PREMIX 27 UNIT IV (22:25)
[2020-10-02] VITALS (13 sets, daily range): BP systolic 108–200; BP diastolic 79–119; PULSE 74–88; RESP 16–18; TEMP 36.4–37.2; O2SAT 95
[2020-10-02] MEDS: morphine 4 mg/mL SDV 1 mL 1 MG IVP ×4 (00:11→16:34)
[2020-10-02 02:00] LABS: Hematocrit 28.4 % (42.0-52.0); Hemoglobin 8.7 g/dL (11.7-16.6)
[2020-10-02] MEDS: carvedilol 25 mg Tablet PO ×2 (02:41→14:32)
[2020-10-02] MEDS: ciprofloxacin 400 MG/200 ML PREMIX 200 MG IV ×2 (02:41→14:33)
[2020-10-02] MEDS: pantoprazole 40 mg SDV IVP ×2 (02:41→14:32)
[2020-10-02] MEDS: metroNIDAZOLE IV 500 MG/100 ML PREMIX 100 MG IV ×3 (04:38→20:31)
[2020-10-02 04:45] LABS: Basophils % 0.8 %; Eosinophils # 0.2 10^3/uL (0.0-0.8); Eosinophils % 4.3 %; Hematocrit 27.6 % (42.0-52.0); Hemoglobin 8.3 g/dL (11.7-16.6); Lymphocytes # 0.7 10^3/uL (0.8-4.8); Lymphocytes % 14.5 %; Mean Corpuscular HGB Conc 30.1 g/dL (30.0-36.0); Mean Corpuscular Hemoglobin 25.2 pg (28.0-34.0); Mean Corpuscular Volume 83.6 fL (80-94); Mean Platelet Volume 8.9 fL (7.4-10.4); Monocytes # 0.5 10^3/uL (0.2-0.9); Neutrophils % 70.2 %; Nucleated Red Blood Cells % 0 %; Platelet Count 212 10^3/cmm (130-400); Red Cell Distribution Width 20.3 % (12.1-15.1); White Blood Count 5.1 10^3/uL (4.0-10.0)
[2020-10-02] MEDS: labetalol 5 mg/mL SDV 20mL 10 MG IVP ×2 (05:00→10:14)
[2020-10-02 05:02] LABS: Alanine Aminotransferase 7 U/L (0-41); Albumin Level 3.1 g/dL (3.5-5.2); Alkaline Phosphatase 100 IU/L (40-130); Anion Gap 16.1 (5-19); Aspartate Amino Transferase 8 U/L (0-40); Blood Urea Nitrogen 32 mg/dL (6-20); Calcium 8.6 mg/dL (8.5-10.5); Carbon Dioxide 29 mmol/L (22-29); Chloride 96 mmol/L (98-107); Glomerular Filtration Rate 11.5 mL/min (90-130); Glucose 86 mg/dL (65-115); Magnesium 1.9 mg/dL (1.7-2.3); Osmolality Calculated 288 mOsm/kg (285-295); Phosphorus 5.8 mg/dL (2.5-4.5); Potassium 5.1 mmol/L (3.5-5.1); Sodium 136 mmol/L (136-145); Total Bilirubin 0.5 mg/dL (0.15-1.2); Total Protein 7.1 g/dL (6.6-8.7)
[2020-10-02 05:30] LABS: Calcium 8.3 mg/dL (8.5-10.5)
--- NOTE | 2020-10-02 05:47 | PC.NURSE ---
shift summary Patient got back to room from dialysis around 19:30. 4 liters if fluid was removed. Has had a fairly good night, did complain of pain a couple of times and morphine was given. Heparin drip was started at 22:27 and a second IV was placed to give antibiotics and other IV medications. Patient has been NPO since mid-night. BP was 200/102 manually during 4:00 rounding, prn of 10mg of labetalol was given.
[2020-10-02] MEDS: sucralfate 1 gm Tablet PO ×4 (06:10→20:30)
[2020-10-02 06:17] LABS: Parathyroid Hormone 562.7 pg/mL (15-65)
[2020-10-02] MEDS: acetaminophen 325 mg Tablet 650 MG PO (08:29)
[2020-10-02] MEDS: minoxidil 10 mg Tablet 20 MG PO ×2 (08:29→18:01)
[2020-10-02] MEDS: bisacodyl 5 mg Tablet PO (08:29)
[2020-10-02] MEDS: docusate sodium 100 mg Capsule 200 MG PO ×2 (08:29→20:30)
[2020-10-02] MEDS: sennosides-docusate Tablet 1 TAB PO ×2 (08:30→18:01)
[2020-10-02] MEDS: b-complex-vitamin c Tablet 1 EACH PO (08:30)
[2020-10-02] MEDS: spironolactone 25 mg Tablet 50 MG PO (08:30)
[2020-10-02] MEDS: lisinopril 20 mg Tablet PO (08:30)
[2020-10-02] MEDS: isosorbide mononitrate ER 60 mg Tablet PO (08:30)
--- NOTE | 2020-10-02 09:40 | PC.NURSE ---
heparin drip stopped at 0937 for procedure.
[2020-10-02] MEDS: Fleet Enema 133 mL Enema PR (10:13)
[2020-10-02] MEDS: amlodipine 10 mg Tablet PO (10:13)
[2020-10-02 10:43] LABS: Hematocrit 27.3 % (42.0-52.0); Hemoglobin 8.3 g/dL (11.7-16.6)
--- NOTE | 2020-10-02 10:48 | PC.CHAP ---
Pastoral Care Encounter/Spiritual Assessment Type of Contact [] Declined senior lead developer visit [] Patient/Family/Request visit [] Outpatient visit [] Follow-up visit [] Physician referral [] Code/Alert [x] Routine visit [] Staff referral [] Actively dying [x] Patient sleeping [] Family support [] [] Out of room [] Palliative care [] [] Receiving care in room [] Pre-surgical visit [] Trauma [] Long length of stay [] ICU visit [] Other: Relational/Emotional Strength [] Patient feels connected with others/family/visitors/staff [] Distress [] Loneliness/isolation [] Abandonment Spirituality of Patient [] Person of Ct [] Attends Rastafarian of their Ct [] Believes in Prayer [] Reads Bible or Uatsdin materials [] There are Spiritual issues to be addressed Remote Broadcast Technician Interventions [] Prayer [] Active listening [] Non-anxious presence [] Spiritual/emotional support [] Crisis/trauma care [] Spiritual counseling [] Bereavement support [] Provided bereavement packet [] Provided Bible/devotional materials [] Provided toy/stuffed animal, coloring book to patient or family member [] Provided Communion [] Anointing/[place] [] Salvation [] Completed spiritual assessment [] Other: Impact on Illness or Injury [] Angry [] Fearful [] Anxious [] Often cries [] Exhaustion [] Unable to work [] Unable to attend tenriism [] Unable to walk/stand [] Unable to read [] Unable to drive [] Unable to eat/drink [] Unable to sleep [] Unable to be with family [] Patient intubated [] Other: Summary Time spent with patient
[2020-10-02 10:51] LABS: Partial Thromboplastin Time 40.3 SECONDS (23.9-36.7)
--- NOTE | 2020-10-02 10:53 | P.PN_ITS ---
Subjective Subjective: Interval history: ABD PAIN, nausea, sob, weak, swollen Medications: Reviewed: Yes Medication Review Details: Current Medications Acetaminophen (Acetaminophen 325 Mg Tablet) 650 mg PO Q6H PRN PRN Reason: Mild/Mod Pain Or Temp >/= 101 Last Admin: 10/02/20 08:29 Dose: 650 mg Documented by: Alprazolam (Alprazolam 0.5 Mg Tablet) 0.5 mg PO TID PRN PRN Reason: Anxiety Amlodipine Besylate (Amlodipine 10 Mg Tablet) 10 mg PO DAILY [facility] Last Admin: 10/02/20 10:13 Dose: 10 mg Documented by: Bisacodyl (Bisacodyl 5 Mg Tablet) 5 mg PO BID PRN PRN Reason: Constipation Last Admin: 10/02/20 08:29 Dose: 5 mg Documented by: Carvedilol (Carvedilol 25 Mg Tablet) 25 mg PO Q12H [facility] Last Admin: 10/02/20 02:41 Dose: 25 mg Documented by: Docusate Sodium (Docusate Sodium 100 Mg Capsule) 200 mg PO BID@08,20 [facility] Last Admin: 10/02/20 08:29 Dose: 200 mg Documented by: Heparin Sodium (Beef Lung) (Heparin 5,000 Unit/Ml Inj 1 Ml) 0 unit IV PRN PRN; Protocol PRN Reason: Heparin weight-base protocol Last Admin: 10/01/20 22:24 Dose: 4,800 unit Documented by: Ciprofloxacin/Dextrose (Cipro) 400 mg in 200 mls @ 200 mls/hr IV Q12H [facility]; Protocol Last Infusion: 10/02/20 04:38 Dose: Infused Documented by: Metronidazole (Flagyl Iv) 500 mg in 100 mls @ 100 mls/hr IV Q8H [facility]; Protocol Last Infusion: 10/02/20 06:16 Dose: Infused Documented by: Heparin Sodium/Sodium Chloride (Heparin Drip) 25,000 unit in 500 mls @ 0 mls/hr IV .Q0M [facility]; Protocol Last Admin: 10/01/20 22:25 Dose: 13.84 unit/kg/hr, 27 mls/hr Documented by: Isosorbide Mononitrate (Isosorbide Mononitrate Er 60 Mg Tablet) 60 mg PO DAILY [facility] Last Admin: 10/02/20 08:30 Dose: 60 mg Documented by: Labetalol HCl (Labetalol 5 Mg/Ml Sdv 20ml) 10 mg IVP Q4H PRN PRN Reason: FOR SBP>180 or DBP>100, HOLD IF HR<60 Last Admin: 10/02/20 10:14 Dose: 10 mg Documented by: Lactulose (Lactulose Oral Liq 20 Gm/30 Ml Udc) 20 gm PO Q12H PRN PRN Reason: constipation Lisinopril (Lisinopril 20 Mg Tablet) 20 mg PO DAILY [facility] Last Admin: 10/02/20 08:30 Dose: 20 mg Documented by: Minoxidil (Minoxidil 10 Mg Tablet) 20 mg PO BID [facility] Last Admin: 10/02/20 08:29 Dose: 20 mg Documented by: Morphine Sulfate (Morphine 4 Mg/Ml Sdv 1 Ml) 1 mg IVP Q4H PRN PRN Reason: SEVERE PAIN Last Admin: 10/02/20 06:10 Dose: 1 mg Documented by: Multivitamins (Q-Uuhwdjz-Rsgqprb C Tablet) 1 each PO DAILY [facility] Last Admin: 10/02/20 08:30 Dose: 1 each Documented by: Non-Formulary Medication (Levalbuterol Tartrate [Xopenex Hfa]) 2 inh INHALATION Q6H PRN PRN Reason: shortness of breath or wheezing Non-Formulary Medication (Umeclidinium [Incruse Ellipta]) 1 inh INHALATION DAILY@0800 [facility] Ondansetron HCl (Ondansetron 2 Mg/Ml Sdv 2 Ml) 4 mg IVP Q6H PRN PRN Reason: NAUSEA AND VOMITING Pantoprazole Sodium (Pantoprazole 40 Mg Sdv) 40 mg IVP Q12H [facility] Last Admin: 10/02/20 02:41 Dose: 40 mg Documented by: Polyethylene Glycol (Polyethylene Glycol 3350 Pkt 17 Gm) 17 gm PO Q24H [facility] Last Admin: 10/01/20 14:55 Dose: 17 gm Documented by: Senna/Docusate Sodium (Sennosides-Docusate Tablet) 1 tab PO BID [facility] Last Admin: 10/02/20 08:30 Dose: 1 tab Documented by: Spironolactone (Spironolactone 25 Mg Tablet) 50 mg PO DAILY@08 [facility] Last Admin: 10/02/20 08:30 Dose: 50 mg Documented by: Sucralfate (Sucralfate 1 Gm Tablet) 1 gm PO AC&BEDTIME [facility] Last Admin: 10/02/20 06:10 Dose: 1 gm Documented by: Terazosin HCl (Terazosin 5 Mg Capsule) 10 mg PO BEDTIME@1999 [facility] Last Admin: 10/01/20 20:16 Dose: 10 mg Documented by: Vitals/I&O/Wt Last Vital Signs Temp 98.1 F 10/02/20 07:18 Pulse 81 10/02/20 07:18 Resp 18 10/02/20 07:18 BP 189/119 10/02/20 07:18 Pulse Ox 95 10/02/20 07:18 10/01/20 10/02/20 10/02/20 22:59 06:59 14:59 Intake Total 420 / 420 300 / 720 Output Total 0 / 0 Balance 420 / 420 300 / 720 Weight last 48 hrs Weight 97.522 kg Physical Exam Narrative: EXAM NARRATIVE: vs noted - remains hypertensive uncomfortable in bed, anasarca heent- nc/at, eomi, anicteric neck + jvp lungs - dull bases and b/l crackles heart +s1, s2, +NASEEM abd soft, distended, ascites ext LUE AVF w/ thrill and bruit leg edema neuro- a,a, o x 2+ mood- depressed/ anxious Data : 10/02/20 10:22 10/02/20 04:34 Micro: Microbiology 10/01/20 10:40 Blood Culture - Preliminary Blood SPECIMEN COLLECTED 10/01/20 10:30 Blood Culture - Preliminary Blood SPECIMEN COLLECTED A&P Additional A&P Information 40 yr old man 1. ESRD- HD MWF- for paracentesis in am -plan repeat HD in am- 4 hrs, 2k, remove 4 l as tolerated 2. htn- monitor w/ hd and paracentesis- as gets more euvolemic, will likely need to dec bp meds- i doubt he is compliant w/ all of them as outpt 3. anasarca- limit IDWG -paracentesis today -abd ct : - Large volume ascites increased compared to the prior exam. Hepatomegaly with very heterogeneous liver. -The heterogeneous appearance of the liver could reflect cirrhosis or infiltrative neoplasm. Abdomen/liver MRI would be most sensitive for further characterization. - No bowel thickening or inflammatory changes. No ileus or obstruction. 4. diastolic dysfunction - hold aldactone till pt shows up regurally for HD 5. bone- mineral- metabolism of ESRD - monitor ca normal, phos - 5.8- binders and hd, pth 562- zemplar w/ hd 6. anemia- hgb 8.3 recent ferritin 1278. yet tsat 11% seen and examined w/ rN discussed w/ pt, his mom, and HD RN Attestations Medical Necessity Statement*: ESRD, anasarca, htn Time Spent in Patient Care: 16 - 35 minutes Coding Level of Care Code Acute Industrial Engineering Director for Chg Roxi
--- NOTE | 2020-10-02 13:37 | US_ITS ---
WS: [id number] ULTRASOUND-GUIDED PARACENTESIS CLINICAL INFORMATION: ascites, sbp COMPARISON: None. Procedure Informed consent: The risks, benefits, and alternatives of the procedure were discussed with the mariah ent. Verbal and written consent was obtained. Timeout: A timeout was performed to confirm the correct patient, procedure, and site. Preparation: A suitable skin site was identified. The patient was prepped and draped in usual sterile fashion. Lidocaine 1% was used for local anesthesia. Catheter: 4 Setswana One-step Yueh catheter. Side: Left Lower quadrant. Fluid Volume: 4500 ml Color: Clear yellow DISPOSITION: 50 cc sent for requested diagnostic tests. Complications: None. US/[place] abd w [id number] IMPRESSION: Uncomplicated ultrasound-guided paracentesis. Removal of 4500 cc
[2020-10-02] MEDS: polyethylene glycol 3350 Pkt 17 gm PO (14:32)
--- NOTE | 2020-10-02 15:10 | PM.PN ---
Subjective Subjective: Interval history: This morning patient was examined, denies fevers, chills overnight, has not had a bowel movement, his abdomen still feels quite tight, no bloody or black stools, no lightheadedness, no nausea, no vomiting, he did receive dialysis yesterday, feels a bit better in terms of his breathing Vitals/I&O/Wt Last Vital Signs Temp 98.1 F 10/02/20 11:03 Pulse 79 10/02/20 14:00 Resp 18 10/02/20 11:07 BP 108/79 10/02/20 11:03 Pulse Ox 95 10/02/20 11:03 10/02/20 10/02/20 10/02/20 06:59 14:59 22:59 Intake Total 300 / 720 100 / 100 Output Total 0 / 0 Balance 300 / 720 100 / 100 Weight last 48 hrs Weight 97.522 kg Physical Exam Const: COMMON NORMALS: no acute distress and patient oriented x3 Resp: COMMON NORMALS: normal respiratory effort, No retractions, No use of accessory muscles and clear to auscultation bilaterally AUSCULTATION: clear to auscultation bilaterally Cardio: COMMON NORMALS: regular rate, regular rhythm, S1 normal heart sound present and S2 normal heart sound present RATE: regular rate RHYTHM: regular rhythm HEART SOUNDS: S1 normal heart sound present and S2 normal heart sound present GI: COMMON NORMALS: Soft to palpation INSPECTION: Yes normal to inspection and Yes abdominal distension AUSCULTATION: Yes normoactive bowel sounds PALPATION: Yes Soft to palpation and Yes Tenderness to palpation present (GI) Extremity: COMMON NORMALS: no pedal edema Neuro: COMMON NORMALS: patient oriented x3 Psych: COMMON NORMALS: mental status grossly normal Data : 10/02/20 10:22 10/02/20 04:34 Micro: Microbiology 10/02/20 12:03 Occult Blood (FIT) - Final Stool Routine Collection 10/01/20 10:30 Blood Culture - Preliminary Blood 10/01/20 10:40 Blood Culture - Preliminary Blood NEGATIVE TO DATE A&P Assessment and plan (1) Abdominal distention: -Likely secondary to fluid overload from missed dialysis days, -However given abdominal pain, abdominal distention, complains of fevers, needs to be evaluated for spontaneous bacterial peritonitis -We will have an abdominal paracentesis this morning, with peritoneal studies Plan: -Monitor for fevers -Continue with Cipro and Flagyl -We will hold off on albumin -We will have dialysis tomorrow -Bowel regimen -Morphine for pain -Hold heparin drip 4 hours before paracentesis, hemoglobin down to 8.3, no signs of bleeding -Full code -SCDs -Cardiac diet Status: Acute (2) Constipation: Status: Acute (3) COPD (chronic obstructive pulmonary disease): Status: Chronic (4) Arteriovenous fistula for hemodialysis in place, secondary: Status: Acute (5) Hepatomegaly: Status: Acute (6) Smoking addiction: Status: Acute (7) Fluid overload: Status: Acute (8) ESRD (end stage renal disease): Status: Acute (9) Anemia: Acute on chronic anemia, did require 2 units PRBC during last hospital admission, no overt signs of bleeding, Hemoccult stools, heparin drip as above, monitor hemoglobin Status: Acute (10) Pulmonary embolism: ct angio: 09/13/2020 . No significant pulmonary embolism centrally. Inconclusive for very tiny peripheral LEFT lower lobe pulmonary artery subsegmental emboli versus poor opacification. 2. Significant change in appearance of the heart and pulmonary artery since 12/01/2018. 3. Marked cardiac enlargement with RIGHT heart strain. 4. Marked enlargement of the pulmonary artery consistent with pulmonary hypertension. Pulmonary artery diameter has increased from 2.8 to 4.0 cm -cardiac echo showed: LV systolic function is normal with EF of 50-55% Diastolic function is abnormal Biatrial enlargement Mild mitral regurgitation Moderate pulmonary hypertension Trivial pericardial effusion and moderate pleural effusion noted -Venous duplex negative forvenous duplex negative for dvt -Due to complaints of shortness of breath on last hospital admission, evidence of right heart strain, CT angiogram of the chest was indeterminate for PE, decision was made to anticoagulate with Eliquis -Hold Eliquis, start heparin drip, monitor hemoglobin Status: Acute (11) PHT (pulmonary hypertension): Status: Acute Additional A&P Information Of note patient is wanted by the surface supply breathing apparatus department, I was told our in-house security team is managing this, monitoring patient Attestations Medical Necessity Statement*: Patient requires hospitalization for abdominal distention concerning for fluid overload, possible SBP, requiring IV antibiotics, paracentesis, peritoneal studies, dialysis Coding Level of Care Code Acute Painting Supervisor for Chg Fwd Diagnoses Abdominal distention R14.0 Constipation K59.00 COPD (chronic obstructive pulmonary disease) J44.9 Arteriovenous fistula for hemodialysis in place, secondary Z99.2 Hepatomegaly R16.0 Smoking addiction F17.200 Fluid overload E87.70 ESRD (end stage renal disease) N18.6 Anemia D64.9 Pulmonary embolism I26.99 PHT (pulmonary hypertension) I27.20
[2020-10-02 16:01] LABS: Body Fluid Polynuclear #Cells 0.022; Body Fluid WBC 185 /uL; Monocytes # Body Fluid 0.163
[2020-10-02 16:27] LABS: Apprearance, Body Fluid CLEAR; Color, Body Fluid YELLOW; Fluid Alkaline Phos. 51 IU/L
[2020-10-02 16:28] LABS: Albumin Body Fluid 2.3 g/dL; Amylase Body Fluid 15 U/L; Cholesterol Body Fluid 65 mg/dL (0-200); LDH Body Fluid 132 U/L; PATH Referral YES; Total Protein Body Fluid 4.9 g/dL; Triglycerides Body Fluid 27 mg/dL (0-150); Uric Acid Body Fluid 4 mg/dL
[2020-10-02 16:41] LABS: Body Fluid Specific Gravity 1.005
[2020-10-02 17:42] LABS: Hematocrit 32.5 % (42.0-52.0)
[2020-10-02] MEDS: terazosin 5 mg Capsule 10 MG PO (20:30)
[2020-10-02 22:10] LABS: Partial Thromboplastin Time 41.5 SECONDS (23.9-36.7)
[2020-10-02] MEDS: heparin 5,000 unit/mL INJ 1 mL IV (22:25)
[2020-10-03] VITALS (11 sets, daily range): BP systolic 135–151; BP diastolic 71–88; PULSE 75–91; RESP 16–18; TEMP 36.6–37.1; O2SAT 94–96
[2020-10-03] MEDS: morphine 4 mg/mL SDV 1 mL 1 MG IVP ×2 (00:53→14:11)
[2020-10-03] MEDS: pantoprazole 40 mg SDV IVP ×2 (02:18→15:28)
[2020-10-03] MEDS: carvedilol 25 mg Tablet PO ×2 (02:18→15:27)
[2020-10-03] MEDS: ciprofloxacin 400 MG/200 ML PREMIX 200 MG IV (02:18)
[2020-10-03] MEDS: metroNIDAZOLE IV 500 MG/100 ML PREMIX 100 MG IV ×2 (03:48→20:20)
[2020-10-03] MEDS: heparin drip 25,000 UNIT/500 ML PREMIX 31 UNIT IV (04:12)
[2020-10-03 04:26] LABS: Basophils % 0.8 %; Eosinophils # 0.2 10^3/uL (0.0-0.8); Eosinophils % 4.2 %; Hematocrit 27.8 % (42.0-52.0); Hemoglobin 8.7 g/dL (11.7-16.6); Lymphocytes # 0.6 10^3/uL (0.8-4.8); Lymphocytes % 13.5 %; Mean Corpuscular HGB Conc 31.3 g/dL (30.0-36.0); Mean Corpuscular Hemoglobin 25.7 pg (28.0-34.0); Mean Corpuscular Volume 82.2 fL (80-94); Mean Platelet Volume 9.1 fL (7.4-10.4); Monocytes # 0.5 10^3/uL (0.2-0.9); Monocytes % 11.4 %; Neutrophils % 69.7 %; Nucleated Red Blood Cells % 0 %; Platelet Count 220 10^3/cmm (130-400); Red Blood Count 3.38 10^6/uL (4.1-5.3); Red Cell Distribution Width 20.4 % (12.1-15.1); White Blood Count 4.7 10^3/uL (4.0-10.0)
[2020-10-03 04:33] LABS: Partial Thromboplastin Time 44.1 SECONDS (23.9-36.7)
[2020-10-03] MEDS: heparin 5,000 unit/mL INJ 1 mL IV (04:54)
[2020-10-03 04:55] LABS: Alanine Aminotransferase < 5 U/L (0-41); Albumin Level 2.9 g/dL (3.5-5.2); Alkaline Phosphatase 93 IU/L (40-130); Anion Gap 16.7 (5-19); Aspartate Amino Transferase 7 U/L (0-40); Blood Urea Nitrogen 47 mg/dL (6-20); Calcium 8.1 mg/dL (8.5-10.5); Carbon Dioxide 28 mmol/L (22-29); Chloride 94 mmol/L (98-107); Globulin 3.8 g/dL (1.3-4.6); Glomerular Filtration Rate 8.7 mL/min (90-130); Glucose 100 mg/dL (65-115); Magnesium 1.9 mg/dL (1.7-2.3); Osmolality Calculated 288 mOsm/kg (285-295); Phosphorus 6.4 mg/dL (2.5-4.5); Potassium 5.7 mmol/L (3.5-5.1); Sodium 133 mmol/L (136-145); Total Bilirubin 0.4 mg/dL (0.15-1.2); Total Protein 6.7 g/dL (6.6-8.7)
[2020-10-03] MEDS: sucralfate 1 gm Tablet PO ×3 (06:23→20:20)
[2020-10-03] MEDS: lisinopril 20 mg Tablet PO (07:55)
[2020-10-03] MEDS: b-complex-vitamin c Tablet 1 EACH PO (07:55)
[2020-10-03] MEDS: amlodipine 10 mg Tablet PO (07:55)
[2020-10-03] MEDS: minoxidil 10 mg Tablet 20 MG PO (07:55)
[2020-10-03] MEDS: isosorbide mononitrate ER 60 mg Tablet PO (07:55)
[2020-10-03] MEDS: sennosides-docusate Tablet 1 TAB PO ×2 (07:55→17:38)
[2020-10-03] MEDS: docusate sodium 100 mg Capsule 200 MG PO ×2 (07:55→20:20)
--- NOTE | 2020-10-03 08:30 | PM.PN ---
Subjective Subjective: Interval history: abd less distended after paracentesis. c/o abd pain, weak, swollen Medications: Reviewed: Yes Medication Review Details: Current Medications Acetaminophen (Acetaminophen 325 Mg Tablet) 650 mg PO Q6H PRN PRN Reason: Mild/Mod Pain Or Temp >/= 101 Last Admin: 10/02/20 08:29 Dose: 650 mg Documented by: Alprazolam (Alprazolam 0.5 Mg Tablet) 0.5 mg PO TID PRN PRN Reason: Anxiety Amlodipine Besylate (Amlodipine 10 Mg Tablet) 10 mg PO DAILY [facility] Last Admin: 10/03/20 07:55 Dose: 10 mg Documented by: Bisacodyl (Bisacodyl 5 Mg Tablet) 5 mg PO BID PRN PRN Reason: Constipation Last Admin: 10/02/20 08:29 Dose: 5 mg Documented by: Carvedilol (Carvedilol 25 Mg Tablet) 25 mg PO Q12H [facility] Last Admin: 10/03/20 02:18 Dose: 25 mg Documented by: Docusate Sodium (Docusate Sodium 100 Mg Capsule) 200 mg PO BID@08,20 [facility] Last Admin: 10/03/20 07:55 Dose: 200 mg Documented by: Heparin Sodium (Beef Lung) (Heparin 5,000 Unit/Ml Inj 1 Ml) 0 unit IV PRN PRN; Protocol PRN Reason: Heparin weight-base protocol Last Admin: 10/03/20 04:54 Dose: 3,800 unit Documented by: Ciprofloxacin/Dextrose (Cipro) 400 mg in 200 mls @ 200 mls/hr IV Q12H [facility]; Protocol Last Infusion: 10/03/20 03:30 Dose: Infused Documented by: Metronidazole (Flagyl Iv) 500 mg in 100 mls @ 100 mls/hr IV Q8H [facility]; Protocol Last Infusion: 10/03/20 05:05 Dose: Infused Documented by: Heparin Sodium/Sodium Chloride (Heparin Drip) 25,000 unit in 500 mls @ 0 mls/hr IV .Q0M [facility]; Protocol Last Admin: 10/03/20 04:12 Dose: 15.89 unit/kg/hr, 31 mls/hr Documented by: Isosorbide Mononitrate (Isosorbide Mononitrate Er 60 Mg Tablet) 60 mg PO DAILY [facility] Last Admin: 10/03/20 07:55 Dose: 60 mg Documented by: Labetalol HCl (Labetalol 5 Mg/Ml Sdv 20ml) 10 mg IVP Q4H PRN PRN Reason: FOR SBP>180 or DBP>100, HOLD IF HR<60 Last Admin: 10/02/20 10:14 Dose: 10 mg Documented by: Lactulose (Lactulose Oral Liq 20 Gm/30 Ml Udc) 20 gm PO Q12H PRN PRN Reason: constipation Lisinopril (Lisinopril 20 Mg Tablet) 20 mg PO DAILY [facility] Last Admin: 10/03/20 07:55 Dose: 20 mg Documented by: Minoxidil (Minoxidil 10 Mg Tablet) 20 mg PO BID [facility] Last Admin: 10/03/20 07:55 Dose: 20 mg Documented by: Morphine Sulfate (Morphine 4 Mg/Ml Sdv 1 Ml) 1 mg IVP Q4H PRN PRN Reason: SEVERE PAIN Last Admin: 10/03/20 00:53 Dose: 1 mg Documented by: Multivitamins (I-Ywxucis-Jstrczp C Tablet) 1 each PO DAILY [facility] Last Admin: 10/03/20 07:55 Dose: 1 each Documented by: Non-Formulary Medication (Levalbuterol Tartrate [Xopenex Hfa]) 2 inh INHALATION Q6H PRN PRN Reason: shortness of breath or wheezing Non-Formulary Medication (Umeclidinium [Incruse Ellipta]) 1 inh INHALATION DAILY@0800 [facility] Ondansetron HCl (Ondansetron 2 Mg/Ml Sdv 2 Ml) 4 mg IVP Q6H PRN PRN Reason: NAUSEA AND VOMITING Pantoprazole Sodium (Pantoprazole 40 Mg Sdv) 40 mg IVP Q12H [facility] Last Admin: 10/03/20 02:18 Dose: 40 mg Documented by: Polyethylene Glycol (Polyethylene Glycol 3350 Pkt 17 Gm) 17 gm PO Q24H [facility] Last Admin: 10/02/20 14:32 Dose: 17 gm Documented by: Senna/Docusate Sodium (Sennosides-Docusate Tablet) 1 tab PO BID [facility] Last Admin: 10/03/20 07:55 Dose: 1 tab Documented by: Sucralfate (Sucralfate 1 Gm Tablet) 1 gm PO AC&BEDTIME [facility] Last Admin: 10/03/20 06:23 Dose: 1 gm Documented by: Terazosin HCl (Terazosin 5 Mg Capsule) 10 mg PO BEDTIME@1999 [facility] Last Admin: 10/02/20 20:30 Dose: 10 mg Documented by: Vitals/I&O/Wt Last Vital Signs Temp 98.1 F 10/03/20 07:12 Pulse 75 10/03/20 07:12 Resp 16 10/03/20 07:12 BP 141/76 10/03/20 07:12 Pulse Ox 96 10/03/20 07:12 10/02/20 10/03/20 10/03/20 22:59 06:59 14:59 Intake Total 1660 / 1760 520 / 2280 Output Total 0 / 0 Balance 1660 / 1760 520 / 2280 Weight last 48 hrs Weight 97.522 kg Physical Exam Narrative: EXAM NARRATIVE: vs noted -BP improved comfortable sitting up, dec anasarca heent- nc/at, eomi, anicteric neck + jvp lungs - dull bases and b/l crackles heart +s1, s2, +NASEEM abd soft, +BS, less distended ext LUE AVF w/ thrill and bruit leg edema neuro- a,a, o x 3 mood- improved Data : 10/03/20 04:11 10/03/20 04:11 Micro: Microbiology 10/01/20 Unknown Gram Stain - Final Peritoneal Fluid 10/02/20 12:03 Occult Blood (FIT) - Final Stool Routine Collection 10/01/20 10:30 Blood Culture - Preliminary Blood 10/01/20 10:40 Blood Culture - Preliminary Blood NEGATIVE TO DATE A&P Additional A&P Information 40 yr old man 1. ESRD- HD MWF- for HD now- 4 hrs, 2k, remove 4 l as tolerated 2. htn- BP improving w/ hd and paracentesis- will dec meds 3. anasarca- limit IDWG -paracentesis yesterday w/ 4. 5 l removed -abd ct : - Large volume ascites increased compared to the prior exam. Hepatomegaly with very heterogeneous liver. -The heterogeneous appearance of the liver could reflect cirrhosis or infiltrative neoplasm. Abdomen/liver MRI would be most sensitive for further characterization. - No bowel thickening or inflammatory changes. No ileus or obstruction. 4. diastolic dysfunction - hold aldactone till pt shows up regurally for HD 5. bone- mineral- metabolism of ESRD - monitor ca normal, phos - 6.4- binders and hd, pth 562- zemplar w/ hd 6. anemia- hgb 8.7 -epo recent ferritin 1278. iron sat 11%- epo seen and examined w/ rN discussed w/ pt and RN Attestations Medical Necessity Statement*: esrd, volume overload, esrd, anemia Time Spent in Patient Care: 16 - 35 minutes Coding Level of Care Code Acute Overhead Line Worker for Chg Roxi
--- NOTE | 2020-10-03 10:20 | PC.CHAP ---
Pastoral Care Encounter/Spiritual Assessment Type of Contact [] Declined sales order administrator visit [] Patient/Family/Request visit [] Outpatient visit [] Follow-up visit [] Physician referral [] Code/Alert [x] Routine visit [] Staff referral [] Actively dying [] Patient sleeping [] Family support [] [] Out of room [] Palliative care [] [] Receiving care in room [] Pre-surgical visit [] Trauma [] Long length of stay [] ICU visit [] Other: Relational/Emotional Strength []x Patient feels connected with others/family/visitors/staff [] Distress [] Loneliness/isolation [] Abandonment Spirituality of Patient [x] Person of Ct [] Attends Voodoo of their Ct [] Believes in Prayer [] Reads Bible or Gnosticist materials [] There are Spiritual issues to be addressed Bi Data Architect Interventions [x] Prayer [x] Active listening [x] Non-anxious presence [] Spiritual/emotional support [] Crisis/trauma care [] Spiritual counseling [] Bereavement support [] Provided bereavement packet [] Provided Bible/devotional materials [] Provided toy/stuffed animal, coloring book to patient or family member [] Provided Communion [] Anointing/[place] [] Salvation [x] Completed spiritual assessment [] Other: Impact on Illness or Injury [] Angry [x] Fearful [] Anxious [] Often cries [] Exhaustion [] Unable to work [] Unable to attend orthodox [] Unable to walk/stand [] Unable to read [] Unable to drive [] Unable to eat/drink [] Unable to sleep [] Unable to be with family [] Patient intubated [] Other: Summary patient uncertain about his future Time spent with patient 15 min
[2020-10-03 11:31] LABS: Partial Thromboplastin Time 69.9 SECONDS (23.9-36.7)
[2020-10-03] MEDS: paricalcitol 2 mcg/mL SDV 1 mL 3 MCG IV (13:02)
[2020-10-03] MEDS: polyethylene glycol 3350 Pkt 17 gm PO (15:28)
[2020-10-03] MEDS: minoxidil 10 mg Tablet 5 MG PO (17:38)
[2020-10-03 17:46] LABS: Partial Thromboplastin Time > 250.0 SECONDS (23.9-36.7)
--- NOTE | 2020-10-03 17:47 | PM.PN ---
Subjective Subjective: Interval history: Patient tells me that he is just not feeling well this morning, his abdomen is less distended, he did have a paracentesis of over 4.5 L, he is getting dialysis at the moment, he did have bowel movement yesterday, Vitals/I&O/Wt Last Vital Signs Temp 97.9 F 10/03/20 15:24 Pulse 91 10/03/20 15:24 Resp 18 10/03/20 15:24 BP 151/79 10/03/20 15:24 Pulse Ox 96 10/03/20 15:24 10/03/20 10/03/20 10/03/20 06:59 14:59 22:59 Intake Total 520 / 2280 240 / 240 120 / 360 Output Total 0 / 0 Balance 520 / 2280 240 / 240 120 / 360 Physical Exam Const: COMMON NORMALS: no acute distress ORIENTATION/CONSCIOUSNESS: Yes awake, Yes oriented to person, Yes oriented to place and Yes oriented to time Resp: COMMON NORMALS: normal respiratory effort, No retractions, No use of accessory muscles and clear to auscultation bilaterally AUSCULTATION: clear to auscultation bilaterally Cardio: COMMON NORMALS: regular rate, regular rhythm, S1 normal heart sound present and S2 normal heart sound present RATE: regular rate RHYTHM: regular rhythm HEART SOUNDS: S1 normal heart sound present and S2 normal heart sound present GI: INSPECTION: Yes normal to inspection and Yes abdominal distension AUSCULTATION: Yes normoactive bowel sounds PALPATION: No Tenderness to palpation present (GI) Extremity: COMMON NORMALS: no pedal edema Neuro: SENSORIUM/ORIENTATION: Yes oriented to person, Yes oriented to place and Yes oriented to time Data : 10/03/20 04:11 10/03/20 04:11 Micro: Microbiology 10/01/20 10:30 Blood Culture - Preliminary Blood Staphylococcus sp coag neg 10/01/20 Unknown Gram Stain - Final Peritoneal Fluid A&P Assessment and plan (1) Abdominal distention: -Likely secondary to fluid overload from missed dialysis days, -However given abdominal pain, abdominal distention, complains of fevers, needs to be evaluated for spontaneous bacterial peritonitis -Status post paracentesis, over 4.5 L removed, PMN cells less than 250, culture so far negative, stain so far negative, but continues to complain of abdominal pain and fatigue and malaise Plan: -Monitor for fevers -Continue with Cipro and Flagyl -Will have dialysis today -If cultures are -48 hours will discharge -Bowel regimen -Morphine for pain -Continue heparin, monitor hemoglobin, currently 8.7, no overt signs of bleeding -Full code -SCDs -Cardiac diet Status: Acute (2) Constipation: Status: Acute (3) COPD (chronic obstructive pulmonary disease): Status: Chronic (4) Arteriovenous fistula for hemodialysis in place, secondary: Status: Acute (5) Hepatomegaly: Status: Acute (6) Smoking addiction: Status: Acute (7) Fluid overload: Status: Acute (8) ESRD (end stage renal disease): Status: Acute (9) Anemia: Acute on chronic anemia, did require 2 units PRBC during last hospital admission, no overt signs of bleeding, Hemoccult stools, heparin drip as above, monitor hemoglobin Status: Acute (10) Pulmonary embolism: ct angio: 09/13/2020 . No significant pulmonary embolism centrally. Inconclusive for very tiny peripheral LEFT lower lobe pulmonary artery subsegmental emboli versus poor opacification. 2. Significant change in appearance of the heart and pulmonary artery since 12/01/2018. 3. Marked cardiac enlargement with RIGHT heart strain. 4. Marked enlargement of the pulmonary artery consistent with pulmonary hypertension. Pulmonary artery diameter has increased from 2.8 to 4.0 cm -cardiac echo showed: LV systolic function is normal with EF of 50-55% Diastolic function is abnormal Biatrial enlargement Mild mitral regurgitation Moderate pulmonary hypertension Trivial pericardial effusion and moderate pleural effusion noted -Venous duplex negative forvenous duplex negative for dvt -Due to complaints of shortness of breath on last hospital admission, evidence of right heart strain, CT angiogram of the chest was indeterminate for PE, decision was made to anticoagulate with Eliquis -Hold Eliquis, start heparin drip, monitor hemoglobin Status: Acute (11) PHT (pulmonary hypertension): Status: Acute Additional A&P Information Of note patient is wanted by the community coordinator department, I was told our in-house security team is managing this, monitoring patient Attestations Medical Necessity Statement*: Patient requires hospitalization for abdominal pain concerning for fluid overload, SBP Coding Level of Care Code Acute Carbider for Chg Fwd Diagnoses Abdominal distention R14.0 Constipation K59.00 COPD (chronic obstructive pulmonary disease) J44.9 Arteriovenous fistula for hemodialysis in place, secondary Z99.2 Hepatomegaly R16.0 Smoking addiction F17.200 Fluid overload E87.70 ESRD (end stage renal disease) N18.6 Anemia D64.9 Pulmonary embolism I26.99 PHT (pulmonary hypertension) I27.20
[2020-10-03] MEDS: HYDROcodone-acetaminophen 5-325 mg Tablet 1 TAB PO ×2 (18:18→21:29)
--- NOTE | 2020-10-03 19:12 | PC.NURSE ---
LAB CALLED WITH CRITICAL PTT OF GREATER THAN 250. DR. CAMACHO NOTIFIED. ORDER GIVEN TO STOP HEPARIN DRIP AND REPEAT PTT IN 6 HOURS.
[2020-10-03] MEDS: terazosin 5 mg Capsule 10 MG PO (20:26)
[2020-10-04] VITALS: BP 157/81; PULSE 90; RESP 18; TEMP 36.7; O2SAT 95
[2020-10-04 00:19] LABS: Partial Thromboplastin Time 36.3 SECONDS (23.9-36.7)
[2020-10-04] MEDS: heparin 5,000 unit/mL INJ 1 mL IV (00:42)
[2020-10-04] MEDS: heparin drip 25,000 UNIT/500 ML PREMIX 33 UNIT IV (02:00)
[2020-10-04] MEDS: ciprofloxacin 400 MG/200 ML PREMIX 200 MG IV (03:21)
[2020-10-04] MEDS: carvedilol 25 mg Tablet PO (03:21)
[2020-10-04] MEDS: HYDROcodone-acetaminophen 5-325 mg Tablet 1 TAB PO ×2 (03:23→09:27)
[2020-10-04] MEDS: ALPRAZolam 0.5 mg Tablet PO (03:26)
[2020-10-04] MEDS: pantoprazole 40 mg SDV IVP (03:46)
[2020-10-04 04:00] VITALS: BP 159/84; PULSE 89; RESP 20; TEMP 37.2; O2SAT 95
[2020-10-04] MEDS: metroNIDAZOLE IV 500 MG/100 ML PREMIX 100 MG IV (04:37)
[2020-10-04 06:00] VITALS: PULSE 84
[2020-10-04 06:53] LABS: Basophils % 0.8 %; Eosinophils # 0.2 10^3/uL (0.0-0.8); Eosinophils % 4.4 %; Hematocrit 27.3 % (42.0-52.0); Hemoglobin 8.4 g/dL (11.7-16.6); Lymphocytes # 0.8 10^3/uL (0.8-4.8); Lymphocytes % 15.5 %; Mean Corpuscular HGB Conc 30.8 g/dL (30.0-36.0); Mean Corpuscular Hemoglobin 25.5 pg (28.0-34.0); Mean Corpuscular Volume 82.7 fL (80-94); Mean Platelet Volume 9.2 fL (7.4-10.4); Monocytes # 0.6 10^3/uL (0.2-0.9); Neutrophils # 3.38 10^3/uL (1.8-7.7); Neutrophils % 67.9 %; Nucleated Red Blood Cells % 0 %; Platelet Count 209 10^3/cmm (130-400); Red Cell Distribution Width 20.9 % (12.1-15.1)
[2020-10-04 07:06] LABS: Partial Thromboplastin Time 56.8 SECONDS (23.9-36.7)
[2020-10-04 07:11] LABS: Alanine Aminotransferase < 5 U/L (0-41); Alkaline Phosphatase 90 IU/L (40-130); Anion Gap 16.4 (5-19); Aspartate Amino Transferase 7 U/L (0-40); Blood Urea Nitrogen 36 mg/dL (6-20); Calcium 8.5 mg/dL (8.5-10.5); Carbon Dioxide 27 mmol/L (22-29); Chloride 95 mmol/L (98-107); Glomerular Filtration Rate 11.9 mL/min (90-130); Glucose 82 mg/dL (65-115); Magnesium 1.8 mg/dL (1.7-2.3); Osmolality Calculated 283 mOsm/kg (285-295); Phosphorus 5.7 mg/dL (2.5-4.5); Potassium 5.4 mmol/L (3.5-5.1); Sodium 133 mmol/L (136-145); Total Bilirubin 0.4 mg/dL (0.15-1.2)
[2020-10-04 07:29] VITALS: BP 153/83; PULSE 83; RESP 14; TEMP 37.1; O2SAT 94
[2020-10-04] MEDS: sucralfate 1 gm Tablet PO (07:29)
--- NOTE | 2020-10-04 08:43 | PM.PN ---
Subjective Subjective: Interval history: still sob, swollen, weak, abd pain. improving appetite Medications: Reviewed: Yes Medication Review Details: Current Medications Acetaminophen (Acetaminophen 325 Mg Tablet) 650 mg PO Q6H PRN PRN Reason: Mild/Mod Pain Or Temp >/= 101 Last Admin: 10/02/20 08:29 Dose: 650 mg Documented by: Hydrocodone Bitart/Acetaminophen (Hydrocodone-Acetaminophen 5-325 Mg Tablet) 1 tab PO Q4H PRN PRN Reason: MODERATE PAIN Last Admin: 10/04/20 03:23 Dose: 1 tab Documented by: Alprazolam (Alprazolam 0.5 Mg Tablet) 0.5 mg PO TID PRN PRN Reason: Anxiety Last Admin: 10/04/20 03:26 Dose: 0.5 mg Documented by: Amlodipine Besylate (Amlodipine 5 Mg Tablet) 5 mg PO DAILY [facility] Bisacodyl (Bisacodyl 5 Mg Tablet) 5 mg PO BID PRN PRN Reason: Constipation Last Admin: 10/02/20 08:29 Dose: 5 mg Documented by: Carvedilol (Carvedilol 25 Mg Tablet) 25 mg PO Q12H ARTEM Last Admin: 10/04/20 03:21 Dose: 25 mg Documented by: Docusate Sodium (Docusate Sodium 100 Mg Capsule) 200 mg PO BID@08,20 [facility] Last Admin: 10/03/20 20:20 Dose: 200 mg Documented by: Heparin Sodium (Beef Lung) (Heparin 5,000 Unit/Ml Inj 1 Ml) 0 unit IV PRN PRN; Protocol PRN Reason: Heparin weight-base protocol Last Admin: 10/04/20 00:42 Dose: 3,800 unit Documented by: Metronidazole (Flagyl Iv) 500 mg in 100 mls @ 100 mls/hr IV Q8H ARTEM; Protocol Last Infusion: 10/04/20 06:03 Dose: Infused Documented by: Heparin Sodium/Sodium Chloride (Heparin Drip) 25,000 unit in 500 mls @ 0 mls/hr IV .Q0M ARTEM; Protocol Last Admin: 10/04/20 02:00 Dose: 16.92 unit/kg/hr, 33 mls/hr Documented by: Ciprofloxacin/Dextrose (Cipro) 400 mg in 200 mls @ 200 mls/hr IV Q24H ARTEM; Protocol Last Infusion: 10/04/20 04:23 Dose: Infused Documented by: Isosorbide Mononitrate (Isosorbide Mononitrate Er 60 Mg Tablet) 60 mg PO DAILY [facility] Last Admin: 10/03/20 07:55 Dose: 60 mg Documented by: Labetalol HCl (Labetalol 5 Mg/Ml Sdv 20ml) 10 mg IVP Q4H PRN PRN Reason: FOR SBP>180 or DBP>100, HOLD IF HR<60 Last Admin: 10/02/20 10:14 Dose: 10 mg Documented by: Lactulose (Lactulose Oral Liq 20 Gm/30 Ml Udc) 20 gm PO Q12H PRN PRN Reason: constipation Lisinopril (Lisinopril 20 Mg Tablet) 20 mg PO DAILY [facility] Last Admin: 10/03/20 07:55 Dose: 20 mg Documented by: Minoxidil (Minoxidil 10 Mg Tablet) 5 mg PO BID [facility] Last Admin: 10/03/20 17:38 Dose: 5 mg Documented by: Multivitamins (Z-Jklfvfr-Yuvnbis C Tablet) 1 each PO DAILY [facility] Last Admin: 10/03/20 07:55 Dose: 1 each Documented by: Non-Formulary Medication (Levalbuterol Tartrate [Xopenex Hfa]) 2 inh INHALATION Q6H PRN PRN Reason: shortness of breath or wheezing Non-Formulary Medication (Umeclidinium [Incruse Ellipta]) 1 inh INHALATION DAILY@0800 [facility] Ondansetron HCl (Ondansetron 2 Mg/Ml Sdv 2 Ml) 4 mg IVP Q6H PRN PRN Reason: NAUSEA AND VOMITING Pantoprazole Sodium (Pantoprazole 40 Mg Sdv) 40 mg IVP Q12H [facility] Last Admin: 10/04/20 03:46 Dose: 40 mg Documented by: Polyethylene Glycol (Polyethylene Glycol 3350 Pkt 17 Gm) 17 gm PO Q24H [facility] Last Admin: 10/03/20 15:28 Dose: 17 gm Documented by: Senna/Docusate Sodium (Sennosides-Docusate Tablet) 1 tab PO BID [facility] Last Admin: 10/03/20 17:38 Dose: 1 tab Documented by: Sucralfate (Sucralfate 1 Gm Tablet) 1 gm PO AC&BEDTIME [facility] Last Admin: 10/04/20 07:29 Dose: 1 gm Documented by: Terazosin HCl (Terazosin 5 Mg Capsule) 10 mg PO BEDTIME@1999 [facility] Last Admin: 10/03/20 20:26 Dose: 10 mg Documented by: Vitals/I&O/Wt Last Vital Signs Temp 98.8 F 10/04/20 07:29 Pulse 83 10/04/20 07:29 Resp 14 10/04/20 07:29 BP 153/83 10/04/20 07:29 Pulse Ox 94 10/04/20 07:29 10/03/20 10/04/20 10/04/20 22:59 06:59 14:59 Intake Total 835.517 / 0226.201 5737.483 / 2210.000 Balance 835.517 / 8551.651 1218.483 / 2210.000 Physical Exam Narrative: EXAM NARRATIVE: vs noted -BP improving comfortable sitting up, still has anasarca heent- nc/at, eomi, anicteric neck + jvp lungs - dull bases and b/l crackles heart +s1, s2, +NASEEM abd soft, +BS, less distended ext LUE AVF w/ thrill and bruit leg edema neuro- a,a, o x 3 mood- improved Data : 10/04/20 06:30 10/04/20 06:30 Micro: Microbiology 10/01/20 10:30 Blood Culture - Preliminary Blood Staphylococcus sp coag neg A&P Additional A&P Information 40 yr old man 1. ESRD- HD MWF- s/p HD yesterday- as htn, swollen, sob, hyperkalemia- repeat HD now- 3.5 hrs, 2k, remove 3 l as tolerated 2. htn- BP improving w/ hd and paracentesis- will apr meds 3. anasarca- limit IDWG -paracentesis yesterday w/ 4. 5 l removed -abd ct 10/01-: - Large volume ascites increased compared to the prior exam. Hepatomegaly with very heterogeneous liver. -The heterogeneous appearance of the liver could reflect cirrhosis or infiltrative neoplasm. Abdomen/liver MRI would be most sensitive for further characterization. - No bowel thickening or inflammatory changes. No ileus or obstruction. 4. diastolic dysfunction - hold aldactone till pt shows up regurally for HD 5. bone- mineral- metabolism of ESRD - monitor ca normal, phos - 6.4 to 5.7 w/ binders and hd, pth 562- zemplar w/ hd 6. anemia- hgb 8.4 -epo recent ferritin 1278. iron sat 11%- epo seen and examined w/ rN discussed w/ pt and RN Attestations Medical Necessity Statement*: htn, esrd Time Spent in Patient Care: 16 - 35 minutes Coding Level of Care Code Acute Resin Mixer for Chg Roxi
[2020-10-04] MEDS: minoxidil 10 mg Tablet 5 MG PO (09:19)
[2020-10-04] MEDS: docusate sodium 100 mg Capsule 200 MG PO (09:20)
[2020-10-04] MEDS: isosorbide mononitrate ER 60 mg Tablet PO (09:20)
[2020-10-04] MEDS: b-complex-vitamin c Tablet 1 EACH PO (09:20)
[2020-10-04] MEDS: amlodipine 5 mg Tablet PO (09:20)
[2020-10-04] MEDS: lisinopril 20 mg Tablet PO (09:20)
[2020-10-04] MEDS: sennosides-docusate Tablet 1 TAB PO (09:20)
--- NOTE | 2020-10-04 10:24 | PC.SOCIAL ---
*IMM UPDATE* Gave patient IMM update, provided copy of page 2. 10/04/20 @ 0915 Initialed, dated, timed and placed in chart.
[2020-10-04 12:42] LABS: Partial Thromboplastin Time 56.5 SECONDS (23.9-36.7)
--- NOTE | 2020-10-04 13:34 | PM.DCS ---
Discharge Providers Date of Admission: 10/01/20 11:47 Date of Discharge: October 04, 2020 Attending Provider at Admission: Tunde Umana MD Attending Provider at Discharge: Tunde Umana MD Primary Care Provider: Mal Junior Diagnoses at Discharge Discharge Diagnosis (1) Abdominal distention: Status: Acute (2) Constipation: Status: Acute (3) COPD (chronic obstructive pulmonary disease): Status: Chronic (4) Arteriovenous fistula for hemodialysis in place, secondary: Status: Acute (5) Hepatomegaly: Status: Acute (6) Smoking addiction: Status: Acute (7) Fluid overload: Status: Acute (8) ESRD (end stage renal disease): Status: Acute (9) Anemia: Status: Acute (10) Pulmonary embolism: Status: Acute (11) PHT (pulmonary hypertension): Status: Acute Reason for Visit Reason for Visit: Numbness in Arms, Possible Sepsis Hospital Course Hospital Course Mal Gibbs is a 40 year old male with a past medical history of end-stage renal disease hemodialysis dependent, CHF, COPD, current smoker, history of anemia, history of high suspicion of pulmonary emboli on Eliquis, hypertension, hyperlipidemia, who presents to [facility] due to feeling unwell, and an abdominal pain. For abdominal distention, likely due to missed dialysis days, there was a suspicion of spontaneous bacterial peritonitis given his complaints of fever, abdominal pain he received paracentesis over 4.5 L removed, PMN cells less than 250s, Gram stain was negative, culture so far negative, thus SBP is fairly unlikely. Patient's abdominal distention improved, remained afebrile, I will nonetheless discharged him on 5 remaining days of Cipro and Flagyl. For his fluid overload, he was dialyzed as inpatient, tolerated it well, advised to be compliant with dialysis days For anemia, patient has chronic anemia, hemoglobin 8 - 9, he is on Eliquis for recent history of possible pulmonary emboli, I kept him on heparin drip as inpatient to monitor his hemoglobin, no overt signs of bleeding, no bloody or black stools, no hemodynamic compromise, hemoglobin remained 8-9, his Hemoccults were negative. Likely significant component of his anemia is related to his end-stage renal disease. But cannot rule out a slow GI bleed. Discharged on Protonix, Carafate. Nonetheless I have discharged him with a close follow-up with Dr. Caputo for recheck CBC in 1 week. Follow-up with general surgery for EGD and colonoscopy in 1 month. Patient was advised if he were to have bloody or black stools, lightheadedness or dizziness go to the emergency room. Patient was also found to have a heterogeneous appearance of the liver on CT imaging, infiltrative neoplasm versus cirrhosis, patient will follow up with hematology oncology as outpatient. Physical Exam Const: COMMON NORMALS: no acute distress and patient oriented x3 Resp: COMMON NORMALS: normal respiratory effort, No retractions, No use of accessory muscles and clear to auscultation bilaterally AUSCULTATION: clear to auscultation bilaterally Cardio: COMMON NORMALS: regular rate, regular rhythm, S1 normal heart sound present, S2 normal heart sound present, No gallops present (Cardio), No clicks present (Cardio) and No murmurs present (Cardio) RATE: regular rate RHYTHM: regular rhythm HEART SOUNDS: S1 normal heart sound present and S2 normal heart sound present GI: COMMON NORMALS: Normal to inspection, nondistended, normoactive bowel sounds present, Soft to palpation and non-tender PALPATION: Yes Soft to palpation Extremity: COMMON NORMALS: no pedal edema Neuro: COMMON NORMALS: patient oriented x3 Psych: COMMON NORMALS: mental status grossly normal, Normal thought process present and cooperative THOUGHT PROCESS: Normal thought process present Discharge Data Data Completed and Pending: Completed Studies During Hospitalization Category Date Time Status CT abdomen pelvis w con* [id number] Stat Cat Scan 10/01/20 09:52 [place] w [id number] Routine Ultrasound 10/02/20 13:37 Completed Pending at discharge Category Date Time Status Anaerobic Culture Routine Lab 10/01/20 Results Blood Culture Sta t Lab 10/01/20 10:40 Results Blood Culture Sta t Lab 10/04/20 12:13 Results Body Fluid Cultur e & GS Routine Lab 10/01/20 Results Complete Blood Co unt w/Auto AM LABS Lab 10/05/20 04:00 Ordered Complete Blood Co unt w/Auto AM LABS Lab 10/06/20 04:00 Ordered Complete Blood Co unt w/Auto AM LABS Lab 10/07/20 04:00 Ordered Comprehensive Met abolic Panel AM LA BS Lab 10/05/20 04:00 Ordered Comprehensive Met abolic Panel AM LA BS Lab 10/06/20 04:00 Ordered Comprehensive Met abolic Panel AM LA BS Lab 10/07/20 04:00 Ordered Magnesium AM LABS Lab 10/05/20 04:00 Ordered Magnesium AM LABS Lab 10/06/20 04:00 Ordered Magnesium AM LABS Lab 10/07/20 04:00 Ordered PTT [Partial Thro mboplastin Time] T imed Lab 10/04/20 18:30 Ordered Phosphorus AM LAB S Lab 10/05/20 04:00 Ordered Phosphorus AM LAB S Lab 10/06/20 04:00 Ordered Phosphorus AM LAB S Lab 10/07/20 04:00 Ordered Platelet Count Q2 D Lab 10/05/20 04:00 Ordered Urinalysis Stat Lab 10/01/20 09:51 Uncollected Cytology [PTH] Ro utine Pth 10/01/20 13:39 Received Labs from last 24 hours 10/04/20 10/04/20 10/04/20 12:11 06:30 06:30 WBC RBC Hgb Hct MCV MCH MCHC RDW Plt Count MPV Neut % (Auto) Lymph % (Auto) [place] % (Auto) Eos % (Auto) Baso % (Auto) Neut # (Auto) Lymph # (Auto) [place] # (Auto) Eos # (Auto) Baso # (Auto) Nucleated RBC % (a uto) Nucleated RBCs # APTT 56.5 H 56.8 H D Sodium 133 L Potassium 5.4 H Chloride 95 L Carbon Dioxide 27 Anion Gap 16.4 BUN 36 H Creatinine 5.4 H GFR Calculation 11.9 L Glucose 82 Calculated Osmolal ity 283 L Calcium 8.5 Phosphorus 5.7 H Magnesium 1.8 Total Bilirubin 0.4 AST 7 ALT < 5 Alkaline Phosphata se 90 Total Protein 7.0 Albumin 3.0 L Globulin 4.0 10/04/20 10/04/20 10/03/20 06:30 00:00 16:53 WBC 5.0 RBC 3.30 L Hgb 8.4 L Hct 27.3 L MCV 82.7 MCH 25.5 L MCHC 30.8 RDW 20.9 H Plt Count 209 MPV 9.2 Neut % (Auto) 67.9 Lymph % (Auto) 15.5 [place] % (Auto) 11.0 Eos % (Auto) 4.4 Baso % (Auto) 0.8 Neut # (Auto) 3.38 Lymph # (Auto) 0.8 [place] # (Auto) 0.6 Eos # (Auto) 0.2 Baso # (Auto) 0.0 Nucleated RBC % (a uto) 0 Nucleated RBCs # 0.0 APTT 36.3 D > 250.0 H* D Sodium Potassium Chloride Carbon Dioxide Anion Gap BUN Creatinine GFR Calculation Glucose Calculated Osmolal ity Calcium Phosphorus Magnesium Total Bilirubin AST ALT Alkaline Phosphata se Total Protein Albumin Globulin Vitals: Last Vital Signs Temp 98.8 F 10/04/20 07:29 Pulse 83 10/04/20 07:29 Resp 14 10/04/20 07:29 BP 153/83 10/04/20 07:29 Pulse Ox 94 10/04/20 07:29 Discharge Plan Discharge Patient Disposition: Home Condition: Stable Prescriptions: New B-complex with vitamin C Tablet 1 ea PO DAILY 30 Days Qty: 30 RF: 0 amlodipine 5 mg Tablet 5 mg PO DAILY 30 Days Qty: 30 RF: 0 metronidazole [Flagyl] 500 mg tablet 500 mg PO Q8H 5 Days Qty: 15 RF: 0 pantoprazole [Protonix] 40 mg tablet,delayed release (DR/EC) 40 mg PO Q12H 30 Days Qty: 60 RF: 0 sucralfate [Carafate] 1 gram tablet 1 g PO BID 28 Days Qty: 56 RF: 0 ciprofloxacin HCl [Cipro] 250 mg tablet 250 mg PO BID 5 Days Qty: 10 RF: 0 Continued carvedilol 25 mg tablet 25 mg PO Q12H RF: 0 spironolactone 25 mg tablet 50 mg PO DAILY@08 RF: 0 calcium acetate 667 mg tablet See Rx Instructions .ROUTE .COMPLEX RF: 0 levalbuterol tartrate [Xopenex HFA] 45 mcg/actuation HFA aerosol inhaler 2 inh INHALATION Q6H PRN (Reason: shortness of breath or wheezing) Qty: 15 RF: 2 docusate sodium 100 mg Capsule 200 mg PO BID@08,20 RF: 0 lisinopril 20 mg tablet 20 mg PO DAILY RF: 0 Incruse Ellipta 62.5 mcg/actuation blister with device 1 inh INHALATION DAILY@0800 RF: 0 hydrocodone-acetaminophen 5-325 mg tablet 1 tab PO TID PRN (Reason: Pain) RF: 0 sennosides-docusate sodium [Stimulant Laxative Plus] 8.6-50 mg tablet 1 tab PO BID RF: 0 minoxidil 2.5 mg Tablet 20 mg PO BID RF: 0 isosorbide mononitrate 60 mg tablet extended release 24 hr 60 mg PO DAILY RF: 0 clonidine HCl 0.2 mg tablet 0.2 mg PO BID PRN (Reason: Blood Pressure) RF: 0 pantoprazole 40 mg tablet,delayed release (DR/EC) 40 mg PO DAILY RF: 0 bisacodyl 5 mg tablet,delayed release (DR/EC) 5 mg PO BID PRN (Reason: Constipation) RF: 0 terazosin 10 mg capsule 10 mg PO BEDTIME@2000 RF: 0 Eliquis 5 mg Tablet 5 mg PO BID@0900,2100 Qty: 60 RF: 3 alprazolam 0.5 mg Tablet 0.5 mg PO TID PRN (Reason: Anxiety) 30 Days Qty: 15 RF: 0 Discharge Orders: Discharge Order (Routine); Ordered 10/04/20 Ordered By: Tunde Umana Referrals: Sam Resendez MD [Physician] - 2 weeks (egd and colonosocpy) Mal Junior [Primary Care Provider] - 4-7 days (recheck cbc) Vahe Gagnon MD [Hospitalist] - 1 month (heterogenous liver, possible liver neoplam) Discharge Diet: Cardiac Discharge Activity: Increase activity as tolerated Patient Instructions: Opioid Safety Activity Restrictions/Additional Instructions: -Take antibiotics as prescribed -Please be compliant with dialysis schedule -Monitor for bloody black stools if so go to emergency room -if you feel lightheaded or dizzy go to the emergency room -Follow-up with Dr. Caputo in a week for recheck CBC -Follow-up with general surgery in 2 to 4 weeks for consideration of EGD Discharge Attestations Time Spent in Discharge Care*: greater than 30 min Status at Discharge: Cognitive status at discharge: cognitively intact, Behavioral status at discharge: cooperative, Quality Metrics Clinical Quality Measures During this hospital stay, did patient experience: None Coding Level of Care Code Acute Chg [facility] note Exam Detailed Diagnoses Abdominal distention R14.0 Constipation K59.00 COPD (chronic obstructive pulmonary disease) J44.9 Arteriovenous fistula for hemodialysis in place, secondary Z99.2 Hepatomegaly R16.0 Smoking addiction F17.200 Fluid overload E87.70 ESRD (end stage renal disease) N18.6 Anemia D64.9 Pulmonary embolism I26.99 PHT (pulmonary hypertension) I27.20
[2020-10-04 15:22] VITALS: BP 156/73; PULSE 86; PULSE 97; RESP 16; TEMP 36.7; O2SAT 92; O2SAT 98
[2020-10-04 15:25] VITALS: O2SAT 98
--- NOTE | 2020-10-09 10:31 | PC.SOCIAL ---
Addendum entered by Savanah Wiseman, RN 10/10/20 14:30: Still unable to reach patient or . Original Note: Critical micro report received from lab on blood culture 1 out of 4 positive for Staph Aureus. Discussed with Dr Umana by phone and no further orders given. Per Dr Umana suspect a contaminate. Tried to reach patient 4 times on 10/08/2020 would answer but was unable to hear me therefore unable to communicate results. Contacted [facility]3] (PCP Dr Junior office) and spoke to [facility].Explained results and provider opinion listed above who dc'd patient from hospital. Confirmed fax number and asked that information be given to provider to review. Fax number given was [phone] Faxed micro report along with dc summary to provider office with confirmation that it was sent successfully and to Dr Junior/ Kallie attention. Per Kallie patient had appt this am at 10am and did attend. Will attempt again today to reach patient to notify of result.
== END 2020-10-04 16:13 | disposition home or self-care (01) | DRG 640 ==
LOC: ER 09:46 → MEDSURG 12:09
PROVIDERS: Internal Medicine; Internal Medicine Nephrology; Admitting Provider Family Medicine; Emergency Provider Family Medicine; PCP Family Medicine; Visit Provider Family Medicine
DX: E87.79 Other fluid overload (principal); N18.6 End stage renal disease; I13.2 Hypertensive heart and chronic kidney disease with heart failure and with stage 5 chronic kidney disease, or end stage renal disease; I50.32 Chronic diastolic (congestive) heart failure; R18.8 Other ascites; Z91.15 Patient's noncompliance with renal dialysis; Z99.2 Dependence on renal dialysis; J44.9 Chronic obstructive pulmonary disease, unspecified; F17.210 Nicotine dependence, cigarettes, uncomplicated; D63.1 Anemia in chronic kidney disease; Z86.711 Personal history of pulmonary embolism; E78.5 Hyperlipidemia, unspecified; F41.8 Other specified anxiety disorders; M51.36 Other intervertebral disc degeneration, lumbar region; R16.0 Hepatomegaly, not elsewhere classified; Z89.021 Acquired absence of right finger(s); K59.00 Constipation, unspecified; I27.20 Pulmonary hypertension, unspecified; Z79.891 Long term (current) use of opiate analgesic; Z79.01 Long term (current) use of anticoagulants; E87.5 Hyperkalemia
CPT/HCPCS: 36415; 49083; 74177; 80053; 80500; 82042; 82140; 82150; 82274; 82310; 82465; 82945; 83605; 83615; 83735; 83880; 83970; 83986; 84075; 84100; 84145; 84157; 84315; 84443; 84478; 84560; 85014; 85018; 85025; 85651; 85730; 86140; 86706; 86803; 87040; 87070; 87075; 87077; 87186; 87205; 87340; 88304; 89050; 94664; 96374; 96375; 99285; C9113; J0360; J0744; J1644; J2270; J2405; J2501; J3490; Q3014; Q4081; Q9967; S0030

== ENCOUNTER 2020-11-01 11:25 | Outpatient (CLI) | payer MEDICARE, MEDICAID, SELFPAY ==
--- NOTE | 2020-11-01 11:00 | US_ITS ---
WS: [id number] ULTRASOUND-GUIDED PARACENTESIS CLINICAL INFORMATION: N18.6 - End stage renal disease COMPARISON: None. Procedure Informed consent: The risks, benefits, and alternatives of the procedure were discussed with the mariah ent. Verbal and written consent was obtained. Timeout: A timeout was performed to confirm the correct patient, procedure, and site. Preparation: A suitable skin site was identified. The patient was prepped and draped in usual sterile fashion. Lidocaine 1% was used for local anesthesia. Catheter: 4 [place] One-step Yueh catheter. Side: Left Lower quadrant. Fluid Volume: 5400 ml Color: Bonny DISPOSITION: Discarded safely. Complications: None. Patient disposition: Discharged from the department in stable condition. US/US paracentesis abd w [id number] IMPRESSION: Uncomplicated ultrasound-guided paracentesis. Removal of 5400 cc
[2020-11-01 11:42] VITALS: BMI 25.8
[2020-11-01 11:48] VITALS: BP 188/113; PULSE 102; RESP 20; TEMP 36.8; O2SAT 96
[2020-11-01 12:18] VITALS: BP 182/119; PULSE 92; RESP 18; O2SAT 95
--- NOTE | 2020-11-01 12:19 | PC.NURSE ---
pt states he did not take blood pressure medication this morning. pt states he will take medication as soon as he gets home. states he has a machine to check blood pressure at home.
[2020-11-01 12:47] VITALS: BP 214/136; PULSE 91; RESP 20; O2SAT 95
--- NOTE | 2020-11-01 12:48 | PC.NURSE ---
pt instructed that he should see the ER dr concerning his blood pressure. pt states i've seen it higher. does not want to go to the ER at this time.
[2020-11-01 13:12] VITALS: BP 174/109; PULSE 90; RESP 18; O2SAT 97
== END 2020-11-01 11:26 | disposition home or self-care (01) ==
PROVIDERS: PCP Family Medicine; Visit Provider Surgery
DX: N18.6 End stage renal disease (principal)
CPT/HCPCS: 49083

== ENCOUNTER → 2020-11-08 07:48 | Day surgery (SDC) | payer MEDICARE, MEDICAID, SELFPAY ==
--- NOTE | 2020-11-08 08:00 | PC.NURSE ---
Pt to GI Lab via wheelcair for transfusion of one unit PRBC's. Pt short of breath. States he has been this way for some time and that it is not a new thing. States he has had a paracentesis in the past and that it feels like he needs another one. Abdomen very round and firm. Pt encouraged to contact Dr. Hurst's office and discuss ascities with physician. VSS. Sao2 at 97% on RA. BP slightly elevated at 180/93. Pt states he woke up late and forgot to take his medicine prior to coming in for transfusion. Lung sounds very diminished in bases. Will continue to monitor.
[2020-11-08 08:11] VITALS: BP 180/93; PULSE 97; RESP 18; TEMP 36.7; O2SAT 96
[2020-11-08 08:16] VITALS: BP 171/106; PULSE 95; RESP 18; TEMP 36.3; O2SAT 94
[2020-11-08 08:34] VITALS: BP 189/109; PULSE 96; RESP 18; TEMP 36.7; O2SAT 98
[2020-11-08 08:49] VITALS: BP 185/96; PULSE 93; RESP 18; TEMP 36.7; O2SAT 98
[2020-11-08 09:49] VITALS: BP 194/92; PULSE 92; RESP 18; TEMP 36.8; O2SAT 94
[2020-11-08 10:49] VITALS: BP 188/98; PULSE 96; RESP 18; TEMP 36.7; O2SAT 95
--- NOTE | 2020-11-08 10:55 | PC.NURSE ---
Transfusion of one unit PRBC complete. No reaction noted. Pt VSS. BP remains elevated at 180/90. Pt states he will take his BP medicine as soon as he gets home. Sao2 remains stabe at 96% on room air. Pt continues to work at breathing. Pt encouraged to call primary physician for ascites and possibly scheduling another paracentesis. Pt denied the need to be evaluated in the ER. States this is normal for him and he is fine. [facility] dialysis clinical nurse occupational medicine called and updated on patient status. Pt scheduled to receive hemodialysis tomorrow.
[2020-11-08] MEDS: sodium chloride 0.9% (100 ml) 100 ML 10 ML (11:08)
== END ==
PROVIDERS: PCP Family Medicine; Visit Provider Internal Medicine Nephrology
DX: D63.1 Anemia in chronic kidney disease (principal)
CPT/HCPCS: 36430; 86850; 86900; 86920; P9016

== ENCOUNTER → 2020-11-20 07:38 | Day surgery (SDC) | payer MEDICARE, MEDICAID, SELFPAY ==
--- NOTE | 2020-11-20 | US_ITS ---
WS: [id number] ULTRASOUND-GUIDED THERAPEUTIC PARACENTESIS Procedure, risks, and complications have been explained to the patient. Consent is obtained. Utilizing aseptic technique and 1% buffered lidocaine, a small dermatome was made through which a 5 F rench Yueh catheter was inserted. Approximately 2700 ml of clear peritoneal fluid was obtained witho ut difficulty. No complications encountered. US/US paracentesis abd w [id number] IMPRESSION: Uncomplicated paracentesis yielding 2700 ml of peritoneal fluid.
[2020-11-20 07:58] VITALS: BP 188/101; PULSE 101; RESP 18; TEMP 36.5; O2SAT 98
--- NOTE | 2020-11-20 08:35 | PC.NURSE ---
Albumin 50 gm infusing as ordered. Lot #[id number] Exp Jun 2022. Dr. Peter at bedside earlier to perform paracentesis. Bonny fluid draining without difficulty. Pt tolerating well.
== END ==
PROVIDERS: PCP Family Medicine; Visit Provider Surgery
DX: R18.8 Other ascites (principal)
CPT/HCPCS: 49083; 96365; P9047

== ENCOUNTER → 2020-12-06 12:34 | Day surgery (SDC) | payer MEDICARE, MEDICAID, SELFPAY ==
--- NOTE | 2020-12-06 12:28 | US_ITS ---
WS: [id number] ULTRASOUND-GUIDED THERAPEUTIC PARACENTESIS Procedure, risks, and complications have been explained to the patient. Consent is obtained. Utilizing aseptic technique and 1% buffered lidocaine, a small dermatome was made through which a 5 F rench Yueh catheter was inserted. Approximately 300 ml of clear peritoneal fluid was obtained withou t difficulty. No complications encountered. US/US paracentesis abd w [id number] IMPRESSION: Uncomplicated paracentesis yielding 3300 ml of peritoneal fluid.
[2020-12-06 12:53] VITALS: BP 170/101; PULSE 84; RESP 18; TEMP 36.5; O2SAT 92
--- NOTE | 2020-12-06 13:19 | PC.NURSE ---
1300 Dr Peter at bedside for US guided paracentesis. Lidocaine 1% 10 mL used for local and injected into LLQ para site. Bonny liquid returned and draining without difficulty. Albumin 50 gm IVPB started to right hand. Lot #[id number]. Exp Mar 2022.
[2020-12-06 13:45] VITALS: BP 168/89; PULSE 89; RESP 20; O2SAT 92
== END ==
PROVIDERS: PCP Family Medicine; Visit Provider Surgery
DX: R18.8 Other ascites (principal)
CPT/HCPCS: 49083; 96365; P9047

== ENCOUNTER → 2020-12-18 07:14 | Day surgery (SDC) | payer MEDICARE, MEDICAID, SELFPAY ==
[2020-12-18 07:44] VITALS: BP 195/118; PULSE 87; RESP 18; TEMP 36.6; O2SAT 96
[2020-12-18 07:45] VITALS: BMI 23.8
[2020-12-18 08:34] VITALS: BP 205/124; PULSE 92; RESP 18; TEMP 36.8; O2SAT 100
[2020-12-18] MEDS: sodium chloride 0.9% (100 ml) 100 ML 10 ML (08:40)
--- NOTE | 2020-12-18 08:41 | PC.NURSE ---
The patient came in with high B/p today. He stated he did not take his blood pressure medication this morning. He denies any headache with the high B/P. He stated this was normal for him. He is asymptomatic at this time.
[2020-12-18 08:55] VITALS: BP 207/120; PULSE 95; RESP 18; TEMP 36.9; O2SAT 100
[2020-12-18 09:10] VITALS: BP 207/135; PULSE 95; RESP 18; TEMP 36.7; O2SAT 93
[2020-12-18 10:10] VITALS: BP 224/136; PULSE 97; RESP 18; TEMP 36.8; O2SAT 97
[2020-12-18 10:33] VITALS: BP 198/124; PULSE 99; RESP 18; TEMP 36.7; O2SAT 98
--- NOTE | 2020-12-18 10:47 | PC.NURSE ---
Patient was advised to go the ER to be checked out due to his high B/P. The patient refused. Reminded the patient to take his B/P medication at home. His mother drove him home from the appointment.
== END ==
PROVIDERS: PCP Family Medicine; Visit Provider Internal Medicine Nephrology
DX: D64.9 Anemia, unspecified (principal)
CPT/HCPCS: 36415; 36430; 86850; 86900; 86920; P9016

== ENCOUNTER 2020-12-20 11:10 | Outpatient (CLI) | payer MEDICARE, MEDICAID, SELFPAY ==
--- NOTE | 2020-12-20 09:36 | US_ITS ---
WS: [id number] ULTRASOUND-GUIDED THERAPEUTIC PARACENTESIS Procedure, risks, and complications have been explained to the patient. Consent is obtained. Utilizing aseptic technique and 1% buffered lidocaine, a small dermatome was made through which a 5 F rench Yueh catheter was inserted. Approximately 4200 ml of clear peritoneal fluid was obtained witho ut difficulty. No complications encountered. US/US paracentesis abd w [id number] IMPRESSION: Uncomplicated paracentesis yielding 4200 ml of peritoneal fluid.
--- NOTE | 2020-12-20 09:50 | US_ITS ---
WS: [id number] RENAL ULTRASOUND HISTORY: hematuria COMPARISON: None available. TECHNIQUE: 2-D and color Doppler imaging of the kidney submitted. Right kidney: 6.1 cm x 3.5 cm x 2.8 cm. Marked atrophy of the kidney. No obstruction or solid mass. Left kidney: 6.8 cm x 3.4 cm x 3.1 cm. Marked atrophy of the kidney. No obstruction or solid mass. Aorta: Normal. Urinary Bladder: Bladder is not visualized. There is a large amount of ascites throughout the periton eal cavity. US/US renal BI* [id number] IMPRESSION: 1. Marked atrophy of each kidney with no hydronephrosis. 2. Urinary bladder is not identified. 3. Large amount of ascites.
[2020-12-20 11:31] VITALS: BP 181/106; PULSE 87; RESP 18; TEMP 36.9; O2SAT 93
--- NOTE | 2020-12-20 11:58 | PC.NURSE ---
Pt to GI lab for US guided paracentesis and Renal US. Dr. Peter at bedside. Lidocaine 1% 10 mL used to numb RLQ paracentesis site. Clear, fer fluid draining without difficulty. Albumin 50 gm IVPB initiated as ordered per Dr. Cruz. Lot# [id number], Exp 07/24.
[2020-12-20 12:35] VITALS: BP 183/111; PULSE 89; RESP 18; O2SAT 93
== END 2020-12-20 11:11 | disposition home or self-care (01) ==
LOC: GILAB 11:13
PROVIDERS: PCP Family Medicine; Visit Provider Internal Medicine Nephrology
DX: R18.8 Other ascites (principal)
CPT/HCPCS: 49083; 76770; 96365; P9047

== ENCOUNTER → 2020-12-21 09:54 | Outpatient (BNVA) | payer MEDICARE, MEDICAID, SELFPAY | PROVIDERS: PCP Family Medicine; Visit Provider Surgery | DX: D64.9 Anemia, unspecified (principal); Z20.822 Contact with and (suspected) exposure to COVID-19 | CPT/HCPCS: 87635 ==

== ENCOUNTER 2021-01-03 11:16 | Outpatient (CLI) | payer MEDICARE, MEDICAID, SELFPAY ==
--- NOTE | 2021-01-03 11:31 | US_ITS ---
WS: [id number] ULTRASOUND-GUIDED THERAPEUTIC PARACENTESIS Procedure, risks, and complications have been explained to the patient. Consent is obtained. Utilizing aseptic technique and 1% buffered lidocaine, a small dermatome was made through which a 5 F rench Yueh catheter was inserted. Approximately 3100 ml of clear peritoneal fluid was obtained witho ut difficulty. No complications encountered. US/US paracentesis abd w [id number] IMPRESSION: Uncomplicated paracentesis yielding 3100 ml of peritoneal fluid.
[2021-01-03 11:41] VITALS: BP 186/120; PULSE 83; RESP 18; TEMP 36.7; O2SAT 94
[2021-01-03 13:02] VITALS: BP 181/108; PULSE 70; RESP 18; O2SAT 92
== END 2021-01-03 11:17 | disposition home or self-care (01) ==
LOC: GILAB 11:19
PROVIDERS: PCP Family Medicine; Visit Provider Internal Medicine Nephrology
DX: R18.8 Other ascites (principal)
CPT/HCPCS: 49083; 96365; P9047

== ENCOUNTER → 2021-01-17 11:15 | Day surgery (SDC) | payer MEDICARE, MEDICAID, SELFPAY ==
--- NOTE | 2021-01-17 11:39 | US_ITS ---
WS: [id number] ULTRASOUND-GUIDED THERE ARE A FEW INTACT PARACENTESIS Procedure, risks, and complications have been explained to the patient. Consent is obtained. Utilizing aseptic technique and 1% buffered lidocaine, a small dermatome was made through which a 5 F rench Yueh catheter was inserted. Approximately 2800 ml of clear peritoneal fluid was obtained witho ut difficulty. No complications encountered. US/US paracentesis abd w [id number] IMPRESSION: Uncomplicated paracentesis yielding 2800 ml of peritoneal fluid.
[2021-01-17 11:45] VITALS: BP 159/99; PULSE 78; RESP 18; TEMP 36.7; O2SAT 100
--- NOTE | 2021-01-17 12:24 | PC.NURSE ---
Albumin 25% 50 gm IV given as ordered with paracentesis. Lot [id number] Aug 24
== END ==
PROVIDERS: PCP Family Medicine; Visit Provider Surgery
DX: R18.8 Other ascites (principal)
CPT/HCPCS: 49083; 96365; P9047

== ENCOUNTER → 2021-01-31 11:09 | Day surgery (SDC) | payer MEDICARE, MEDICAID, SELFPAY ==
--- NOTE | 2021-01-31 11:32 | US_ITS ---
WS: [id number] Abdominal ultrasound, limited. History: Evaluate for ascites. Comparison: None. All 4 quadrants are imaged by ultrasound to evaluate for ascites. There is a small amount of ascites in all 4 quadrants. Patient has elected to wait for accumulation of fluid before having a paracentesi s. US/US abdomen limited [id number] IMPRESSION: No paracentesis performed today due to only a small amount of ascites in all 4 quadrants.
--- NOTE | 2021-01-31 12:14 | PC.NURSE ---
Per doctor Rome, not enough fluid to safely drain. reason explained to patient who understood. Patient instructed to return if condition worsens.
[2021-01-31 12:19] VITALS: BP 158/108; PULSE 70; RESP 20; TEMP 36.2; O2SAT 96
== END ==
PROVIDERS: PCP Family Medicine; Visit Provider Surgery
DX: R18.8 Other ascites (principal)
CPT/HCPCS: 76705

== ENCOUNTER → 2021-02-14 11:21 | Day surgery (SDC) | payer MEDICARE, MEDICAID, SELFPAY ==
[2021-02-14 11:28] VITALS: BP 184/124; PULSE 91; RESP 20; TEMP 37.2; O2SAT 95; BMI 22.3
--- NOTE | 2021-02-14 11:34 | US_ITS ---
WS: [id number] ULTRASOUND-GUIDED THERAPEUTIC PARACENTESIS Procedure, risks, and complications have been explained to the patient. Consent is obtained. Utilizing aseptic technique and 1% buffered lidocaine, a small dermatome was made through which a 5 F rench Yueh catheter was inserted. Approximately 2200 ml of clear peritoneal fluid was obtained witho ut difficulty. No complications encountered. US/US paracentesis abd w [id number] IMPRESSION: Uncomplicated paracentesis yielding 2200 ml of peritoneal fluid.
== END ==
PROVIDERS: PCP Family Medicine; Visit Provider Surgery
DX: R18.8 Other ascites (principal)
CPT/HCPCS: 49083; 96365; P9047

== ENCOUNTER 2021-02-18 13:07 | Emergency (ER) | payer MEDICARE, MEDICAID, SELFPAY ==
[2021-02-18 13:25] VITALS: BP 179/102; PULSE 75; RESP 20; TEMP 36.4; O2SAT 99; BMI 18.3
[2021-02-18 14:39] VITALS: BP 176/106; PULSE 71; RESP 18; O2SAT 98
--- NOTE | 2021-02-18 14:41 | XRR_ITS ---
PROCEDURE INFORMATION: Exam: XR Right Ribs with PA Chest Exam date and time: 02/18/2021 2:41 PM Age: 40 years old Clinical indication: Pain and injury or trauma; Rib area; Blunt trauma (contusions or hematomas); Chest wall pain; Injury date: 2 weeks ago; Patient HX: --fall 2 wks ago, mid back pain right sided rib pain; Additional info: Fall 2 weeks ago. Rib pain TECHNIQUE: Imaging protocol: XR Right ribs with PA chest. Views: 3 views COMPARISON: CR XR chest 1V portable [id number] 09/13/2020 4:29 AM FINDINGS: Lungs: Pulmonary vascular congestion. No overt edema. No consolidation. Pleural spaces: No large pleural effusion. No pneumothorax. Heart/Mediastinum: Markedly enlarged cardiac silhouette. Bones/joints: Minimally displaced fracture right posterior rib 7 with angular margins. No other confirmed fractures. XR/XR ribs RT mn 3V w CXR1V [id number] IMPRESSION: 1. Minimally displaced fracture right posterior rib 7. 2. Enlarged cardiac silhouette with pulmonary vascular congestion but no overt edema. 3. No evidence of pneumothorax. Radiation Dose CTDIVOL = (mGy): DLP = (mGy-cm)
--- NOTE | 2021-02-18 14:41 | XRR_ITS ---
PROCEDURE INFORMATION: Exam: XR Thoracic Spine Exam date and time: 02/18/2021 2:41 PM Age: 40 years old Clinical indication: Pain and injury or trauma; Fall; Blunt trauma (contusions or hematomas); Pain in thoracic spine; Injury date: 2 weeks ago; Additional info: Fall 2 weeks ago, mid back pain TECHNIQUE: Imaging protocol: XR of the thoracic spine. Views: 3 views. COMPARISON: 1. CT abdomen pelvis w con* [id number] 10/01/2020 10:12 AM 2. CR XR ribs RT mn 3V w CXR1V [id number] 02/18/2021 3:21:28 PM FINDINGS: Bones/joints: Vertebral bodies and posterior elements appear intact and normally aligned. The cervicothoracic junction is difficult to visualized on lateral projections due to soft tissues. Soft tissues: Unremarkable. XR/XR thoracic spine 3V* [id number] IMPRESSION: Spine appears intact and normally aligned. Radiation Dose CTDIVOL = (mGy): DLP = (mGy-cm)
--- NOTE | 2021-02-18 14:45 | W.ED.BACK ---
HPI - Back Pain/Injury General: Chief Complaint: Back Pain/Injury Stated Complaint: SOB/RIB & BACK PAIN Time Seen by Provider: 02/18/21 14:29 History of Present Illness: HPI Narrative: Patient is a 40-year-old male comes to the ED with right rib pain and and mid back pain. Patient says 2 weeks ago he lost his balance and had a fall. He went to the emergency department in [place] after fall and he was cleared and told to rest. Patient says he still having right rib pain and mid back pain that he rates a 10 out of 10. Denies any head injury, headache or loss of consciousness after the fall. Associated symptoms: Deny abdominal pain, chills, dysuria, fatigue, fever(s), hematuria, nausea or vomiting Review of Systems Const: Denies: fever(s), chills or fatigue Eyes: Denies: change in vision or eye discomfort ENMT: Denies: throat pain, odynophagia, nasal discharge or nasal congestion Card: Denies: chest pain, palpitations, edema, swelling of feet/ankles, dyspnea on exertion or orthopnea Resp: Reports: pain on inspiration (Right rib); Denies: dyspnea, productive cough or non-productive cough GI: Denies: abdominal pain, nausea, vomiting, diarrhea, constipation or hematochezia : Denies: flank pain, difficulty urinating, dysuria or hematuria Musc: Reports: back pain (Mid back); Denies: neck pain or extremity swelling Skin/Breast: Denies: rash or new lesions Neuro: Denies: headache(s), numbness in extremities or weakness in extremities PFS ED PFSH: Medical History Anasarca Anemia Anxiety with depression Arteriovenous fistula for hemodialysis in place, secondary Congestive heart failure COPD (chronic obstructive pulmonary disease) Current smoker Degenerative disc disease, lumbar End-stage renal disease on hemodialysis Gross hematuria Hemoptysis Hepatomegaly Hypertension Surgical History H/O hand surgery Amputation right 2&3 fingers 2017 History of adenoidectomy Family History Father No problems noted. Other Hypertension Social History Smoking and tobacco status: current every day smoker Alcohol intake: never Marital status: Number of children: 3 Current occupational status: disabled History of recent travel: No Physical Exam Const: COMMON NORMALS: no acute distress, patient oriented x3 and alert GENERAL APPEARANCE: cooperative and comfortable HENMT: COMMON NORMALS: normocephalic HEAD & SCALP: normocephalic MOUTH: Normal oral and palatal mucosa present THROAT: posterior oropharynx normal and uvula midline Eye: COMMON NORMALS: Equal, round and reactive pupils present PUPIL: Yes Equal, round and reactive pupils present Neck/C-Spine: COMMON NORMALS: supple GENERAL: Yes normal visual inspection Chest: CHEST: Yes tenderness rib right anterior-axillary line involving the 7th rib, involving the 8th rib and involving the 9th rib Resp: COMMON NORMALS: normal respiratory effort, No retractions, No use of accessory muscles and clear to auscultation bilaterally AUSCULTATION: clear to auscultation bilaterally Cardio: COMMON NORMALS: regular rate, regular rhythm, S1 normal heart sound present, S2 normal heart sound present, No gallops present (Cardio), No clicks present (Cardio), No murmurs present (Cardio) and Peripheral pulses 2+ throughout RATE: regular rate RHYTHM: regular rhythm HEART SOUNDS: S1 normal heart sound present and S2 normal heart sound present PERIPHERAL PULSES: Peripheral pulses 2+ throughout GI: COMMON NORMALS: Normal to inspection, nondistended, normoactive bowel sounds present, Soft to palpation, non-tender and no masses PALPATION: Yes Soft to palpation : COMMON NORMALS: Yes no CVA tenderness BLADDER/KIDNEY EXAM: Yes no CVA tenderness Back/Pelvis: COMMON NORMALS: no CVA tenderness THORACIC SPINE/UPPER BACK: Yes pain with ROM, Yes thoracic spinal tenderness and Yes paraspinal muscle tenderness Extremity: COMMON NORMALS: normal to inspection Neuro: COMMON NORMALS: patient oriented x3 and moves all extremities SENSORIUM/ORIENTATION: Yes alert Skin: GENERAL SKIN EXAM: dry skin Course Vital Signs: Vital signs: Vital Signs Temperature 97.6 F 02/18/21 13:25 Pulse Rate 73 02/18/21 16:44 Respiratory Rate 14 02/18/21 16:44 Blood Pressure 156/96 02/18/21 16:44 Pulse Oximetry 92 02/18/21 16:44 MDM - Back Pain/Injury MDM Narrative: Medical decision making narrative: Patient is a 40-year-old male who comes to the ED with right rib pain and midthoracic back pain after having a fall 2 weeks ago. Vitals are stable. Patient has some right rib tenderness upon palpation along with bilateral thoracic paraspinal muscle tenderness. Lungs clear to auscultation bilaterally. X-ray of right ribs showed minimally displaced fracture of right posterior rib 7. Thoracic spine x-ray showed no acute fractures or findings. Patient was diagnosed with a right rib fracture and discharged home with a prescription for hydrocodone for pain. He was told to rest and apply cold pack on right ribs to help with symptoms. Follow-up with PCP in 7 to 10 days for reevaluation. Return to ED precautions given. Patient understood and agree with plan. Imaging Data^: Other Xray: Attestation: I personally reviewed and interpreted this imaging study as follows: Radiologist's impression: [address] [place] [address] XRay Report Signed Patient: Mal Gibbs V Unit #: [id number] : 1980 Age/Sex: 40 / M ADM Date: 02/18/21 Loc: ER Room/Bed: Attending Dr: Ordering Provider/Ordering MD: Caden Mcpherson Date of Service: 02/18/21 Procedure(s): XR ribs RT mn 3V w CXR1V [id number] Accession Number(s): [id number] Report Number: [id number] PROCEDURE INFORMATION: Exam: XR Right Ribs with PA Chest Exam date and time: 02/18/2021 2:41 PM Age: 40 years old Clinical indication: Pain and injury or trauma; Rib area; Blunt trauma (contusions or hematomas); Chest wall pain; Injury date: 2 weeks ago; Patient HX: --fall 2 wks ago, mid back pain right sided rib pain; Additional info: Fall 2 weeks ago. Rib pain TECHNIQUE: Imaging protocol: XR Right ribs with PA chest. Views: 3 views COMPARISON: CR XR chest 1V portable [id number] 09/13/2020 4:29 AM FINDINGS: Lungs: Pulmonary vascular congestion. No overt edema. No consolidation. Pleural spaces: No large pleural effusion. No pneumothorax. Heart/Mediastinum: Markedly enlarged cardiac silhouette. Bones/joints: Minimally displaced fracture right posterior rib 7 with angular margins. No other confirmed fractures. XR/XR ribs RT mn 3V w CXR1V [id number] IMPRESSION: 1. Minimally displaced fracture right posterior rib 7. 2. Enlarged cardiac silhouette with pulmonary vascular congestion but no overt edema. 3. No evidence of pneumothorax. Radiation Dose CTDIVOL = (mGy): DLP = (mGy-cm) Dictated By: Dre Naylor MD Signed By: Dre Naylor MD Signed Date/Time: 02/18/21 162 DD/ [address] [address] XRay Report Signed Patient: Mal Gibbs V Unit #: [id number] : 1980 Age/Sex: 40 / M ADM Date: 02/18/21 Loc: ER Room/Bed: Attending Dr: Ordering Provider/Ordering MD: Caden Mcpherson Date of Service: 02/18/21 Procedure(s): XR thoracic spine 3V* [id number] Accession Number(s): [id number] Report Number: [id number] PROCEDURE INFORMATION: Exam: XR Thoracic Spine Exam date and time: 02/18/2021 2:41 PM Age: 40 years old Clinical indication: Pain and injury or trauma; Fall; Blunt trauma (contusions or hematomas); Pain in thoracic spine; Injury date: 2 weeks ago; Additional info: Fall 2 weeks ago, mid back pain TECHNIQUE: Imaging protocol: XR of the thoracic spine. Views: 3 views. COMPARISON: 1. CT abdomen pelvis w con* [id number] 10/01/2020 10:12 AM 2. CR XR ribs RT mn 3V w CXR1V [id number] 02/18/2021 3:21:28 PM FINDINGS: Bones/joints: Vertebral bodies and posterior elements appear intact and normally aligned. The cervicothoracic junction is difficult to visualized on lateral projections due to soft tissues. Soft tissues: Unremarkable. XR/XR thoracic spine 3V* [id number] IMPRESSION: Spine appears intact and normally aligned. Radiation Dose CTDIVOL = (mGy): DLP = (mGy-cm) Dictated By: Dre Naylor MD Signed By: Dre Naylor MD Signed Date/Time: 02/18/21 1623 DD/ 1441 Discharge Plan Discharge Patient Disposition: Home Clinical Impression: Right rib fracture Qualifiers: Encounter type: initial encounter Rib fracture type: single rib Fracture type: closed Qualified Code(s): S22.31XA - Fracture of one rib, right side, initial encounter for closed fracture Condition: Stable Prescriptions: No Action carvedilol 25 mg tablet 25 mg PO Q12H RF: 0 calcium acetate 667 mg tablet See Rx Instructions .ROUTE .COMPLEX RF: 0 levalbuterol tartrate [Xopenex HFA] 45 mcg/actuation HFA aerosol inhaler 2 inh INHALATION Q6H PRN (Reason: shortness of breath or wheezing) Qty: 15 RF: 2 lisinopril 20 mg tablet 20 mg PO DAILY RF: 0 Incruse Ellipta 62.5 mcg/actuation blister with device 1 inh INHALATION DAILY@0800 RF: 0 clonidine 0.3 mg/24 hr patch weekly 0.3 mg transdermal AC RF: 0 amlodipine 10 mg tablet 10 mg PO DAILY RF: 0 Discharge Orders: Discharge ED (Routine); Ordered 02/18/21 Ordered By: Caden Mcpherson Referrals: Mal Junior [Primary Care Provider] - Discharge Diet: Regular Discharge Activity: Increase activity as tolerated Patient Instructions: Rib Fracture (ED), Opioid Safety Activity Restrictions/Additional Instructions: Follow-up with medical provider as directed in 7 to 10 days for reevaluation. Rest and apply cold pack on sore ribs to help with symptoms. Take medications as prescribed. Return to the ER or your medical provider if condition worsens. Please read and understand discharge instructions. Thank you for choosing [facility] for your healthcare needs today. Please realize this is an emergency room and that we are providing you with a medical screening exam and this may not be complete and all inclusive of all the testing and or work up that you may need to determine your ailment or severity of your illness. It is very important that you follow up as instructed or that you return to the Emergency Department should you have concerns or if your condition changes or worsens in any way. Coding Level of Care Code ED Guest Services Director for Cristi Diane Exam Comprehensive
[2021-02-18] MEDS: HYDROcodone-acetaminophen 7.5-325 mg Tablet 1 TAB PO (15:00)
[2021-02-18 16:44] VITALS: BP 156/96; PULSE 73; RESP 14; O2SAT 92
== END 2021-02-18 16:38 | disposition home or self-care (01) ==
PROVIDERS: Emergency Provider Physician Assistant; PCP Family Medicine
DX: S22.31XA Fracture of one rib, right side, initial encounter for closed fracture (principal); I13.2 Hypertensive heart and chronic kidney disease with heart failure and with stage 5 chronic kidney disease, or end stage renal disease; N18.6 End stage renal disease; I50.9 Heart failure, unspecified; J44.9 Chronic obstructive pulmonary disease, unspecified; F17.210 Nicotine dependence, cigarettes, uncomplicated; W19.XXXA Unspecified fall, initial encounter
CPT/HCPCS: 71101; 72072; 99283

== ENCOUNTER 2021-02-25 10:56 | Inpatient (IN) | payer MEDICARE, MEDICAID, SELFPAY ==
[2021-02-25] VITALS (94 sets, daily range): BP systolic 136–235; BP diastolic 83–155; PULSE 72–107; RESP 11–35; TEMP 36.4–36.9; O2SAT 75–100; BMI 23.7
--- NOTE | 2021-02-25 10:59 | ECG_ITS ---
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 Measurements Intervals [place] Rate: 83 P: 46 VA: 235 QRS: 16 QRSD: 78 T: 60 QT: 352 QTc: 416 Interpretive Statements SINUS RHYTHM WITH FIRST DEGREE AV BLOCK Compared to ECG 09/13/2020 11:27:21 First degree AV block now present T-wave abnormality no longer present Electronically Signed On 02-25-2021 23:47:29 CDT by Ruba Hussein M.D. [id number]
--- NOTE | 2021-02-25 11:13 | ECG_ITS ---
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 Measurements Intervals [place] Rate: 86 P: 73 MT: 232 QRS: 56 QRSD: 133 T: 80 QT: 383 QTc: 459 Interpretive Statements SINUS RHYTHM WITH FIRST DEGREE AV BLOCK LEFT ATRIAL ENLARGEMENT [-0.15mV P-WAVE IN V1/V2] INTRAVENTRICULAR CONDUCTION DELAY [130+ ms QRS DURATION] POSSIBLE LEFT VENTRICULAR HYPERTROPHY [VOLTAGE CRITERIA PLUS LAE OR QRS WIDENING] Compared to ECG 02/25/2021 12:28:26 Atrial abnormality now present Intraventricular conduction delay now present Electronically Signed On 02-25-2021 23:47:47 CDT by Ruba Hussein M.D. [id number]
--- NOTE | 2021-02-25 11:13 | XR_ITS ---
WS: [id number] Exam: XR chest 1V portable [id number] Date/Time of Exam: 02/25/2021 11:13 AM Reason For Exam: dyspnea Comparison 02/18/2021. Mild infiltrate in the mid right lung suspicious for developing pneumonia. Remaining lung cantu are clear. The heart is enlarged but unchanged in size. The mediastinum is not widened. No pleural effusi on or pneumothorax. Previously noted fracture of the posterior right seventh rib not definitely seen on today's exam. XR/XR chest 1V portable [id number] IMPRESSION: 1. Mild infiltrate in the mid right lung suspicious for developing pneumonia. 2. Cardiac enlargement unchanged. No obvious sign of CHF.
[2021-02-25 11:33] LABS: Basophils # 0.1 10^3/uL (0.0-0.1); Basophils % 1.5 %; Eosinophils # 0.5 10^3/uL (0.0-0.8); Hematocrit 32.3 % (42.0-52.0); Hemoglobin 10.1 g/dL (11.7-16.6); Lymphocytes # 0.9 10^3/uL (0.8-4.8); Lymphocytes % 13.2 %; Mean Corpuscular HGB Conc 31.3 g/dL (30.0-36.0); Mean Corpuscular Hemoglobin 28.9 pg (28.0-34.0); Mean Corpuscular Volume 92.6 fl (80-94); Mean Platelet Volume 9.9 fL (7.4-10.4); Monocytes # 0.4 10^3/uL (0.2-0.9); Monocytes % 5.5 %; Neutrophils # 4.73 10^3/uL (1.8-7.7); Neutrophils % 72.5 %; Nucleated Red Blood Cells % 0 %; Platelet Count 237 10^3/cmm (130-400); Red Blood Count 3.49 10^6/uL (4.1-5.3); Red Cell Distribution Width 17.7 % (12.1-15.1); White Blood Count 6.5 10^3/uL (4.0-10.0)
--- NOTE | 2021-02-25 11:37 | CT_ITS ---
WS: [id number] CT CHEST ANGIOGRAPHY WITH REFORMATS HISTORY: hypoxia/tachycardia TECHNIQUE: Contiguous axial images are obtained through the chest during arterial injection of intrav enous contrast. Images are reconstructed to evaluate the pulmonary arteries. MIP imaging also reviewe d. All CT scans at [facility] use at least one of these dose optimization techniques: automat ed exposure control; mA and/or kV adjustment per patient size (includes targeted exams where dose is matched to clinical indication); or iterative reconstruction. CONTRAST: Omnipaque 350; 95 mL IV. DLP: 605.91 mGy.cm COMPARISON: 09/13/2020 Opacification of the pulmonary arteries. Portions of the RIGHT main pulmonary artery are obscured by the incoming contrast in the SVC. No filling defects are identified to the segmental and portions of the subsegmental pulmonary arteries. The pulmonary artery is enlarged as seen on the prior examinatio n measuring 3.9 cm in diameter. Normal aorta. Enlargement of the LEFT heart chambers. There is a smal l pericardial effusion. Small layering RIGHT pleural effusion. Atelectatic lung at the RIGHT lung bas e. There is mild haziness throughout both lungs suggesting mild pulmonary edema. Mediastinal and hilar prominent lymphoid tissue. Lymph nodes measure up to 20 mm. Similar to the prio r examination. Destruction of the lateral posterior RIGHT sixth rib. New finding since the prior study. Could be a h ealing remote fracture with callus. New since 09/13/2020. Ascites within the upper abdomen. The liver is enlarged. Bilateral gynecomastia. CT/CT angio chest PE protcl [id number] IMPRESSION: 1. No pulmonary embolism is identified. 2. Enlarged LEFT heart chambers. Similar to the prior examination. 3. Ascites and hepatomegaly. 4. Small RIGHT pleural effusion with adjacent RIGHT lower lobe atelectasis. 5. Abnormality in the posterior RIGHT sixth rib. Suspect this is probably a he aling fracture. New since 09/13/2020. Alternatively could be an of destructive b one lesion but no history of malignancy has been provided.
--- NOTE | 2021-02-25 11:39 | ED_ITS ---
HPI - SOB/Dyspnea General: Chief Complaint: Shortness of Breath/Dyspnea Stated Complaint: TROUBLE BREATHING Time Seen by Provider: 02/25/21 11:13 History of Present Illness: MD elicited complaint: shortness of breath and pain with inspiration Pertinent past history: COPD and other (ESRD) Onset (ago): hour(s) Timing: constant Severity: mild Exacerbating factors: nothing Relieving factors: nothing Known history of: COPD and other (ESRD) Associated symptoms: Reports cough and sense of impending doom; Deny abdominal pain, chest congestion, chest pain, diaphoresis, dizziness, extremity pain, fever(s), hemoptysis, lightheadedness, myalgias, nausea, orthopnea, palpitations, paresthesias, polydipsia, polyuria, rash, syncope or vomiting Treatment prior to arrival: none Review of Systems Const: Denies: fever(s) or diaphoresis ENMT: Denies: throat pain, ear or mastoid pain, nasal discharge or nasal congestion Card: Denies: chest pain, palpitations, lightheadedness, syncope or orthopnea Resp: Denies: hemoptysis or chest congestion GI: Denies: abdominal pain, nausea or vomiting : Denies: flank pain, dysuria, urinary frequency or urinary urgency Musc: Denies: extremity pain Skin/Breast: Denies: rash or pruritus Neuro: Denies: dizziness Endo: Denies: polyuria or polydipsia PFSH ED PFSH: Medical History Acute diastolic CHF (congestive heart failure) Anasarca Anemia Anxiety with depression Arteriovenous fistula for hemodialysis in place, secondary Congestive heart failure COPD (chronic obstructive pulmonary disease) Current smoker Degenerative disc disease, lumbar End-stage renal disease on hemodialysis Gross hematuria Hemoptysis Hepatomegaly Hyperkalemia Hypertension Hypertensive emergency PHT (pulmonary hypertension) Surgical History H/O hand surgery Amputation right 2&3 fingers 2017 History of adenoidectomy Family History Father No problems noted. Other Hypertension Social History Smoking and tobacco status: current every day smoker Alcohol intake: never Marital status: Number of children: 3 Current occupational status: disabled History of recent travel: No Physical Exam Const: COMMON NORMALS: no acute distress GENERAL APPEARANCE: cooperative and comfortable ORIENTATION/CONSCIOUSNESS: Yes awake, Yes oriented to person, Yes oriented to place and Yes oriented to time HENMT: COMMON NORMALS: normocephalic, atraumatic and hearing grossly normal bilaterally HEAD & SCALP: normocephalic and atraumatic Neck/C-Spine: COMMON NORMALS: no JVD Resp: COMMON NORMALS: normal respiratory effort, No retractions, No use of accessory muscles and clear to auscultation bilaterally AUSCULTATION: clear to auscultation bilaterally Cardio: COMMON NORMALS: no JVD, regular rate, regular rhythm and No murmurs present (Cardio) RATE: regular rate RHYTHM: regular rhythm GI: COMMON NORMALS: Soft to palpation and No hepatosplenomegaly present AUSCULTATION: Yes normoactive bowel sounds PALPATION: Yes Soft to palpation, No Tenderness to palpation present (GI), No Guarding due to palpation present (GI) and Yes No hepatosplenomegaly present Extremity: COMMON NORMALS: normal to inspection, capillary refill normal, no clubbing, cyanosis or edema, no calf tenderness and no pedal edema Neuro: SENSORIUM/ORIENTATION: Yes oriented to person, Yes oriented to place and Yes oriented to time Skin: COMMON NORMALS: no rashes or lesions noted GENERAL SKIN EXAM: no rashes or lesions noted Course Vital Signs: Vital signs: Vital Signs Temperature 97.9 F 02/27/21 18:00 Pulse Rate 81 02/27/21 18:55 Respiratory Rate 20 H 02/27/21 18:55 Blood Pressure 158/91 02/27/21 18:55 Pulse Oximetry 97 02/27/21 18:55 MDM - SOB/Dyspnea MDM Narrative: Medical decision making narrative: Accelerated hypertension end-stage renal disease with hyperkalemia. Troponin is elevated as well. He has exacerbation of COPD. Multiple system involvement. Discussed with Dr. Gonzalez consult nephrology. Orders written for admission. Lab Data: Labs: Lab Results 02/25/21 02/25/21 02/25/21 11:10 11:20 11:20 WBC 6.5 10^3/uL 10^3/ uL (4.0-10.0) RBC 3.49 10^6/uL L 10 ^6/uL (4.1-5.3) Hgb 10.1 g/dL L g/dL (11.7-16.6) Hct 32.3 % L % (42.0-52.0) MCV 92.6 fl fl (80-94) MCH 28.9 pg pg (28.0-34.0) MCHC 31.3 g/dL g/dL (30.0-36.0) RDW 17.7 % H % (12.1-15.1) Plt Count 237 10^3/cmm 10^3 /cmm (130-400) MPV 9.9 fL fL (7.4-10.4) Neut % (Auto) 72.5 % % Lymph % (Auto) 13.2 % % Humphreys % (Auto) 5.5 % % Eos % (Auto) 7.0 % % Baso % (Auto) 1.5 % % Neut # (Auto) 4.73 10^3/uL 10^3 /uL (1.8-7.7) Lymph # (Auto) 0.9 10^3/uL 10^3/ uL (0.8-4.8) Humphreys # (Auto) 0.4 10^3/uL 10^3/ uL (0.2-0.9) Eos # (Auto) 0.5 10^3/uL 10^3/ uL (0.0-0.8) Baso # (Auto) 0.1 10^3/uL 10^3/ uL (0.0-0.1) Nucleated RBC % (a uto) 0 % % Nucleated RBCs # 0.0 /100WBC /100W BC Specimen Type Sample Site ABG pH ABG pCO2 ABG pO2 ABG HCO3 ABG O2 Saturation ABG Base Excess Alexei Test A-a O2 Gradient Hematocrit Hgb O2 Saturation Carboxyhemoglobin Methemoglobin Total Hemoglobin Ionized Calcium O2 Delivery Device Indoor Landscape Architect ID Sodium 132 mmol/L L mmol /L (136-145) Potassium 7.0 mmol/L H* mmo l/L (3.5-5.1) Chloride 91 mmol/L L mmol/ L (98-107) Carbon Dioxide 24 mmol/L mmol/L (22-29) Anion Gap 24.0 H (5-19) BUN 43 mg/dL H mg/dL (6-20) Creatinine 8.0 mg/dL H* mg/d L (0.7-1.2) GFR Calculation 7.6 mL/min L mL/m in (90-130) Glucose 81 mg/dL mg/dL (65-115) Calculated Osmolal ity 284 mOsm/kg L mOs m/kg (285-295) Calcium 9.8 mg/dL mg/dL (8.5-10.5) Total Bilirubin 0.6 mg/dL mg/dL (0.15-1.2) AST 12 U/L U/L (0-40) ALT 7 U/L U/L (0-41) Alkaline Phosphata se 142 IU/L H IU/L (40-130) Troponin T Baselin e NT-Pro-B Natriuret Pep > 96221 pg/mL H p g/mL (0-125) Total Protein 8.1 g/dL g/dL (6.6-8.7) Albumin 4.2 g/dL g/dL (3.5-5.2) Globulin 3.9 g/dL g/dL (1.3-4.6) Nasal/Oral COVID-1 9 PCR Not detected Hep Bs Antigen Hep Bs Antibody Hepatitis C Antibo dy 02/25/21 02/25/21 02/25/21 11:20 11:20 11:34 WBC RBC Hgb Hct MCV MCH MCHC RDW Plt Count MPV Neut % (Auto) Lymph % (Auto) Humphreys % (Auto) Eos % (Auto) Baso % (Auto) Neut # (Auto) Lymph # (Auto) Humphreys # (Auto) Eos # (Auto) Baso # (Auto) Nucleated RBC % (a uto) Nucleated RBCs # Specimen Type Venous Sample Site Brachial, right ABG pH 7.32 L (7.35-7.45) ABG pCO2 53.7 mmHg H mmHg (35-45) ABG pO2 31.3 mmHg L* mmHg (80.0-100.0) ABG HCO3 27.6 mmol/L H mmo l/L (22-26) ABG O2 Saturation 51.3 ABG Base Excess 0.9 mmol/L mmol/L (-2.0-2.0) Alexei Test Pos A-a O2 Gradient 7.0 mmHg mmHg (5-10) Hematocrit 30.5 % L % (42-52) Hgb O2 Saturation 49.6 % L % (95-100) Carboxyhemoglobin 2.3 %THgb %THgb (0.4-20.1) Methemoglobin 1.0 % % (0.4-1.5) Total Hemoglobin 10.0 g/dL L g/dL (14-18) Ionized Calcium 1.2 mmol/L mmol/L (1.1-1.4) O2 Delivery Device Nrb Indoor Landscape Architect ID Amh Sodium 131.0 mmol/L mmol /L (131-143) Potassium 6.9 mmol/L H mmol /L (3.5-5.0) Chloride Carbon Dioxide Anion Gap BUN Creatinine GFR Calculation Glucose 84.0 mg/dL mg/dL (70-115) Calculated Osmolal ity Calcium Total Bilirubin AST ALT Alkaline Phosphata se Troponin T Baselin e 67 ng/L H ng/L (0-15) NT-Pro-B Natriuret Pep Total Protein Albumin Globulin Nasal/Oral COVID-1 9 PCR Hep Bs Antigen Non-reactive (Nonreactive) Hep Bs Antibody > 1000.0 H (11.5-1000) Hepatitis C Antibo dy Non-reactive (Nonreactive) Discharge Plan Discharge Patient Disposition: Admitted As Inpatient Admit Provider: Bob Gonzalez Clinical Impression: Acute exacerbation of chronic obstructive airways disease, ESRD (end stage renal disease), Troponin level elevated, Hypertensive emergency, Hyperkalemia Condition: Stable Discharge Diet: As Directed Discharge Activity: Increase activity as tolerated Coding Level of Care Code 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
[2021-02-25 11:40] LABS: ABG PCO2 53.7 mmHg (35-45); ABG PH Result 7.32 (7.35-7.45); Arterial Blood Gas Hematocrit 30.5 % (42-52); Base Excess ABG 0.9 mmol/L (-2.0-2.0); Blood Gas Allen Test Pos; Blood Gas Operator Identificat AMH; Blood Gas Sample Site Brachial, right; Carboxyhemoglobin 2.3 %THgb (0.4-20.1); HCO3 ABG 27.6 mmol/L (22-26); HGB O2 Sat 49.6 % (95-100); Ionized Calcium Level - ABG 1.2 mmol/L (1.1-1.4); Oxygen Device NRB; Oxygen Saturation ABG 51.3; PO2 ABG 31.3 mmHg (80.0-100.0); Potassium Level - ABG 6.9 mmol/L (3.5-5.0)
[2021-02-25] MEDS: ipratropium-albuterol 3 mL Neb INHALATION (11:45)
[2021-02-25 11:59] LABS: Troponin(5th) Baseline 67 ng/L (0-15)
[2021-02-25 12:00] LABS: Alanine Aminotransferase 7 U/L (0-41); Albumin Level 4.2 g/dL (3.5-5.2); Alkaline Phosphatase 142 IU/L (40-130); Aspartate Amino Transferase 12 U/L (0-40); Blood Urea Nitrogen 43 mg/dL (6-20); Calcium 9.8 mg/dL (8.5-10.5); Carbon Dioxide 24 mmol/L (22-29); Chloride 91 mmol/L (98-107); Globulin 3.9 g/dL (1.3-4.6); Glomerular Filtration Rate 7.6 mL/min (90-130); Glucose 81 mg/dL (65-115); Osmolality Calculated 284 mOsm/kg (285-295); Sodium 132 mmol/L (136-145); Total Bilirubin 0.6 mg/dL (0.15-1.2); Total Protein 8.1 g/dL (6.6-8.7)
[2021-02-25] MEDS: morphine 4 mg/mL SDV 1 mL IVP ×2 (12:02→21:10)
[2021-02-25 12:07] LABS: Blood Gas Sample Type Venous
[2021-02-25 12:27] LABS: NT Pro B Type Natriuretic Pept > 70000 pg/mL (0-125)
[2021-02-25] MEDS: insulin regular-human 100 units/1 mL 5 UNIT IVP (12:33)
--- NOTE | 2021-02-25 12:43 | P.CONIM_ITS ---
Providers/Reason For Consult Consulting Physician/Specialty*: tona rosario md/ telenephrology Reason for Consult*: ESRD, hyperkalemia, htn urgency Requesting Physician: Dr. Schwarz Primary Care Provider: Mal Junior History of Present Illness History of Present Illness Mal Gibbs is a 40 year old male ESRD on HD MWF, diastolic dysfunction, anemia, copd, and anxiety. pt presents w/ SOB, PEDRAZA, julio, htn, weakness. Pt found htn on labetalol drip and hyperkalemic. renal called for ESRD management. Review of Systems General: Reports: 10 or more systems reviewed and unremarkable except in HPI and below Narrative: weak, julio. swollen, htn, sob, edema, sad Meds/Allergies Home Medications and Allergies Home Medications Medication Instructions Recorded Confirmed Last Taken Type calcium acetate 667 mg tablet See Rx Instructions .ROUTE 01/24/20 02/14/21 02/14/21 History .COMPLEX tab carvedilol 25 mg tablet 25 mg PO Q12H tab 01/24/20 02/14/21 02/14/21 History levalbuterol tartrate 45 2 inh INHALATION Q6H PRN #15 gm 01/24/20 02/14/21 02/14/21 Rx mcg/actuation aerosol inhaler lisinopril 20 mg PO DAILY 04/13/20 02/14/21 02/14/21 History Incruse Ellipta 1 inh INHALATION DAILY@0800 05/03/20 02/14/21 02/14/21 History amlodipine 10 mg PO DAILY 01/17/21 02/14/21 02/14/21 History clonidine 0.3 mg TRANSDERMAL AC 01/17/21 02/14/21 02/14/21 History Allergies Allergy/AdvReac Type Severity Reaction Status Date / Time nifedipine Allergy KATERINY-Swell Verified 02/14/21 11:35 Lip/Tongue/Throat PFSH Acute PFSH: Medical History Anasarca Anemia Anxiety with depression Arteriovenous fistula for hemodialysis in place, secondary Congestive heart failure COPD (chronic obstructive pulmonary disease) Current smoker Degenerative disc disease, lumbar End-stage renal disease on hemodialysis Gross hematuria Hemoptysis Hepatomegaly Hypertension Surgical History H/O hand surgery Amputation right 2&3 fingers 2017 History of adenoidectomy Family History Father No problems noted. Other Hypertension Social History Smoking and tobacco status: current every day smoker Alcohol intake: never Marital status: Number of children: 3 Current occupational status: disabled History of recent travel: No Vitals/I&O/Wt Last Vital Signs Temp 97.6 F 02/25/21 11:14 Pulse 85 02/25/21 12:26 Resp 16 02/25/21 12:26 BP 226/142 02/25/21 12:26 Pulse Ox 90 02/25/21 12:26 Weight last 48 hrs Weight 81.647 kg Physical Exam Narrative: EXAM NARRATIVE: uncomfortable, SOB, weak vs noted- BP elevated heent- nc/at, eomi, anicteric neck- no jvp lungs crackles and wheezes b/l heart reg, + s1, s2 abd soft, nt, distended, + bs ext b/l edema LUE AVF w/ thrill and bruit neuro-a,a, o x 2, weak A&P Additional A&P Information 40 yr old man 1. ESRD- HD now- 3.5 hrs, 2k, remove 4 l as tolerated 1b. hyperkalemia- emergent HD 2. htn- monitor w/ hd - wean off labetalol 3. hyponatremia - should improve w/ hd -check tsh 4. diastolic dysfunction - remove fluids w/ hd -bp control 5. bone- mineral- metabolism of ESRD - monitor ca, phos, pth 6. anemia- hgb above baseline - monitor -hold epo w/ htn 7. f/u abg seen and examined w/ RN- telehealth visit time spent 55 minutes discussed w/ RN, Dr. Torres and Dr. Aponte Consult Attestations Medical Necessity Statement: htn emergency and ESRD w/ hyperkalemia Time Spent in Patient Care: Greater than 35 minutes (>than 50% of time spent in counselling and/or direct pt care on unit) . 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
[2021-02-25] MEDS: sodium bicarbonate 8.4% 1 mEq/mL 50mL Syr 50 MEQ IVP (12:44)
[2021-02-25] MEDS: dextrose 50% syringe 50 mL IVP (12:44)
[2021-02-25] MEDS: calcium gluconate 0.1 gm/mL 10% SDV 10mL 1 GM IVP (12:45)
[2021-02-25 12:54] LABS: Glucose Point of Care 73 mg/dL (70-110)
[2021-02-25] MEDS: labetalol 300 MG in sodium chloride 0.9% 240 ML 30 MG IV (13:10)
--- NOTE | 2021-02-25 13:13 | ECG_ITS ---
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 Measurements Intervals [place] Rate: 84 P: 63 NM: 192 QRS: 80 QRSD: 118 T: 98 QT: 427 QTc: 506 Interpretive Statements SINUS RHYTHM LEFT ATRIAL ENLARGEMENT [-0.15mV P-WAVE IN V1/V2] MODERATE INTRAVENTRICULAR CONDUCTION DELAY [110+ ms QRS DURATION] PROLONGED QT INTERVAL Compared to ECG 02/25/2021 12:33:02 Prolonged QT interval now present First degree AV block no longer present Electronically Signed On 02-25-2021 23:57:36 CDT by Ruba Hussein M.D. [id number]
--- NOTE | 2021-02-25 13:14 | PC.PHAR ---
PT STATES HE TAKES CARE OF HIS OWN MEDICATIONS-PT STATES HE IS UNSURE OF THE NAMES OF WHAT HE TAKES -CALLED PTS NO ANSWER-MEDICATIONS ENTERED ARE MEDS THAT SHOW HAVE BEEN FILLED RECENTLY-NOTES ARE MADE IN THE PHARMACY COMMENTS-EXT MED HISTORY SHOWS ELIQUIS 5MG BID LAST FILLED ON 11/13/20 30D/S AND LEXAPRO 20MG DAILY LAST FILLED ON 11/15/20 30D/S
[2021-02-25] MEDS: iohexol 350 mg/mL 100 mL Btl IV (13:41)
--- NOTE | 2021-02-25 15:47 | P.HP_ITS ---
Providers/Chief Complaint Admitting Physician: Bob Gonzalez Primary Care Provider: Mal Junior Chief Complaint: TROUBLE BREATHING History of Present Illness 40-year-old gentleman with history of ESRD, hemodialysis MWF, poor adherence, recurrent episodes of somnolence, abdominal distention, congestive heart failure, chronic lower extremity swelling, COPD, smoking addiction, other chronic problems, has been experiencing shortness of breath over the last 3 days, reports with productive cough, sometimes with color change to the phlegm, denies any fever, has been having mild headache, in ER hypoxic on presentation, saturation as low as 75%, initially requiring up to 15 L of oxygen, subsequently down to 4, currently 6 L to maintain saturation 93%. CTA without PE, enlarged left heart chambers, small right pleural effusion with adjacent right lower lobe atelectasis. Abnormality in posterior right sixth rib noted incidentally on CTA, probably a healing fracture, new since 09/13/2020. Bone lesion could not be excluded. He reported also sharp sternal chest pain worse with coughing and inspiration, currently resolved, but reproducible on palpation. His blood pressure initially was very elevated up as high as 235/155, had to be started on labetalol drip in ER. He is afebrile, without leukocytosis. Noted mild hyponatremia, 132, hyperkalemia, potassium 7, bicarb 24, anion gap 24. Alk phos 142, other liver parameters normal. Troponin baseline 67, 2-hour 53.7. NT proBNP more than 70,000, similar to last 2 values in September. He does not usually use supplemental oxygen. He lives at home with his mother. He had vaccination for COVID-19. When asked when his last hemodialysis was, states Thursday. When asked if state for the full session, states he has. When asked if he missed any sessions last week, does not reply. Denies taking any extra medication has been in his usual. Abdomen chronically distended, reports some abdominal discomfort recently. No nausea or vomiting. No diarrhea, no melena or hematochezia. Reports last bowel movement day before yesterday, last meal yesterday. Reports is passing flatus. States he is hungry and wants to eat. Review of Systems Const: Denies: fever(s), chills, body aches or malaise Eyes: Denies: change in vision or eye redness ENMT: Denies: throat pain, oral sores or ear or mastoid pain Card: Reports: chest pain and edema; Denies: pre-syncope or dyspnea on exertion Resp: Reports: dyspnea, productive cough and change in phlegm color; Denies: hemoptysis GI: Reports: abdominal pain; Denies: nausea, vomiting, diarrhea, constipation, hematochezia or melena : Denies: flank pain, difficulty urinating, urinary frequency or hematuria Musc: Denies: back pain, joint swelling or joint redness Skin/Breast: Denies: rash, sores or new lesions Neuro: Denies: headache(s), numbness in extremities, weakness in extremities, dizziness, confusion or seizure-like activity Endo: Denies: polyuria or polydipsia [place]/Lymph: Denies: easy bleeding or purpura All/Imm: Denies: urticaria, throat swelling or tongue swelling Medications/Allergies Home Medications Medication Instructions Recorded Confirmed Last Taken Type carvedilol 25 mg tablet 50 mg PO BID tab 01/24/20 02/25/21 02/14/21 History lisinopril 20 mg PO DAILY 04/13/20 02/25/21 02/14/21 History Incruse Ellipta 1 inh INHALATION DAILY 05/03/20 02/25/21 02/14/21 History amlodipine 10 mg PO BEDTIME 01/17/21 02/25/21 02/14/21 History clonidine 0.3 mg TRANSDERMAL Q7D 01/17/21 02/25/21 02/14/21 History clonidine HCl 0.2 mg PO BID 02/25/21 02/25/21 Unknown History cyclobenzaprine 5 mg PO TID PRN 02/25/21 02/25/21 Unknown History hydrocodone-acetaminophen 1 tab PO Q6H PRN 02/25/21 02/25/21 Unknown History isosorbide mononitrate 60 mg PO DAILY 02/25/21 02/25/21 Unknown History lactulose 15 ml PO TID 02/25/21 02/25/21 Unknown History lisinopril 40 mg PO DAILY 02/25/21 02/25/21 Unknown History minoxidil 2.5 mg PO BID 02/25/21 02/25/21 Unknown History omeprazole 40 mg PO BID 02/25/21 02/25/21 Unknown History pantoprazole 40 mg PO BID 02/25/21 02/25/21 Unknown History sennosides-docusate sodium 1 tab PO BID 02/25/21 02/25/21 Unknown History [Stimulant Laxative Plus] sevelamer carbonate [Renvela] See Rx Instructions .ROUTE .COMPLEX 02/25/21 02/25/21 Unknown History spironolactone 50 mg PO DAILY 02/25/21 02/25/21 Unknown History vit B,U-FF-fwhw-selen-vit D3-E 1 tab PO BEDTIME 02/25/21 02/25/21 Unknown Histor y [RenaPlex-D] Allergies Allergy/AdvReac Type Severity Reaction Status Date / Time nifedipine Allergy ALGY-Swell Verified 02/14/21 11:35 Lip/Tongue/Throat PFSH Acute PFSH: Medical History Anasarca Anemia Anxiety with depression Arteriovenous fistula for hemodialysis in place, secondary Congestive heart failure COPD (chronic obstructive pulmonary disease) Current smoker Degenerative disc disease, lumbar End-stage renal disease on hemodialysis Gross hematuria Hemoptysis Hepatomegaly Hypertension Surgical History H/O hand surgery Amputation right 2&3 fingers 2017 History of adenoidectomy Family History Father No problems noted. Other Hypertension Social History Smoking and tobacco status: current every day smoker Alcohol intake: never Marital status: Number of children: 3 Current occupational status: disabled History of recent travel: No Vitals/I&O/Wt Last Vital Signs Temp 98.3 F 02/25/21 14:23 Pulse 78 02/25/21 14:23 Resp 16 02/25/21 14:23 BP 168/114 02/25/21 14:23 Pulse Ox 93 02/25/21 14:23 Weight last 48 hrs Weight 85.5 kg Weight 81.647 kg Physical Exam Const: COMMON NORMALS: no acute distress and patient oriented x3 EXAM LIMITATIONS: altered mental status GENERAL APPEARANCE: cooperative ORIENTATION/CONSCIOUSNESS: Yes lethargic OTHER: Wakes up to voice, shoulder squeeze answers a few questions, promptly falls back asleep. HENMT: COMMON NORMALS: oropharynx normal Neck/C-Spine: COMMON NORMALS: no JVD Resp: COMMON NORMALS: normal respiratory effort AUSCULTATION: diminished lung sounds Cardio: COMMON NORMALS: no JVD, regular rhythm, S1 normal heart sound present, S2 normal heart sound present and No murmurs present (Cardio) RHYTHM: regular rhythm HEART SOUNDS: S1 normal heart sound present and S2 normal heart sound present GI: COMMON NORMALS: Normal to inspection, nondistended, normoactive bowel sounds present, Soft to palpation and non-tender PALPATION: Yes Soft to palpation Extremity: GENERAL: Yes edema (Chronic pitting and non-piting edema BL LE, 2+) Neuro: COMMON NORMALS: patient oriented x3 and moves all extremities Skin: COMMON NORMALS: no rashes or lesions noted GENERAL SKIN EXAM: no rashes or lesions noted Data : 02/25/21 11:20 02/25/21 11:20 A&P Assessment and plan (1) Hypertensive emergency: Hypertensive emergency at presentation, extremely elevated blood pressure associated with chest pain. Blood pressure improved with labetalol drip, hemodialysis. Chest pain resolved. Monitor. Resume clonidine, Imdur, carvedilol. Hold spironolactone, lisinopril for now due to hyperkalemia. Follow-up troponin EKG series. Status: Acute (2) Acute respiratory failure with hypoxia: Requiring 6 L oxygen by nasal cannula, at presentation needing up to 15 L. States has been ill for about 3 days with productive cough with change in sputum color. Diminished air entry. Severe acute COPD exacerbation. Levaquin, prednisone, collect sputum culture. Cannot entirely exclude pneumonia, although appears less likely. Small right pleural effusion, right lower lobe atelectasis. Acute diastolic congestive heart failure. Hemodialysis today. COVID-19 PCR. Status: Acute (3) Hyperkalemia: Hemodialysis today. Status: Acute (4) Atelectasis: Incentive spirometry. Status: Acute (5) Acute diastolic CHF (congestive heart failure): Acute diastolic congestive heart failure. Hemodialysis today. Status: Acute (6) PHT (pulmonary hypertension): Noted. Status: Acute (7) Abnormality of rib determined by X-ray: Possibly healing fracture, but other etiologies, including due to malignant lesion not excluded. Will need follow-up. Status: Acute (8) Chest pain: Sternal sharp chest pain, possibly related to hypertensive emergency, although not as report pleuritic nature, worse with cough, deep inspiration, reproducible on palpation. Perhaps more so related to his recent shortness of breath, cough in the last 3 days. Complete troponin EKG series. Monitor blood pressures, treat severe hypertension. Status: Acute Additional A&P Information Acute/chronic encephalopathy: Recurrent episodes of somnolence. May be related to medications he is taking including cyclobenzaprine, [place]. He denies taking more than prescribed. I do not see documented history of liver cirrhosis, although CT repeat paracentesis. Heterogenous appearing liver, enlarged on CT in September, possibly cirrhosis or infiltrative neoplasm. History of ileus Smoking addiction Attestations Medical Necessity Statement*: Admission of over 2 midnights is going to be needed for assessment of management of hypoxic respiratory failure with severe COPD exacerbation, diastolic congestive heart failure in the setting of ESRD and hemodialysis, hypertensive emergency on presentation with elevated blood pressure and chest pain, abnormal troponin. Severe hyperkalemia. 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
--- NOTE | 2021-02-25 16:22 | PC.NURSE ---
Admit Note Patient admitted to ICU from [ER. Patient presents with ABD distention, lower extremity edema, JVD, and Lethargy. Patient presented on a non rebreather and was able to be put on 6L NC. Scabs in different stages of healing cover patients entire body. Orders reviewed & will continue to monitor. 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 Other education includes:call light education and dialysis. Patient aware.
[2021-02-25 16:58] LABS: Thyroid Stimulating Hormone 3.02 uIU/mL (0.27-4.20)
[2021-02-25] MEDS: heparin 5,000 unit/mL INJ 1 mL 5000 UNIT SUBCUT (17:16)
[2021-02-25] MEDS: sevelamer 800 mg Tablet 3200 MG PO (17:16)
[2021-02-25] MEDS: sennosides-docusate Tablet 1 TAB PO (17:17)
[2021-02-25] MEDS: levoFLOXacin 750 mg Tablet PO (17:17)
[2021-02-25] MEDS: pantoprazole DR 40 mg Tablet PO (17:17)
[2021-02-25 18:17] LABS: Troponin 5 6HR 54.77 ng/L (0-15); Troponin 5 6HR Delta -12.23 ng/L (0-12)
[2021-02-25] MEDS: labetalol 300 MG in sodium chloride 0.9% 240 ML 60 MG IV (18:26)
[2021-02-25] MEDS: hyDRALAzine 20 mg/mL INJ 1 mL 5 MG IVP ×2 (18:26→19:50)
--- NOTE | 2021-02-25 19:15 | PC.NURSE ---
Labetolol Drip Upon assessment of patient at 1914, Labetolol drip running at 2 mg/min. MAR displaying 1 mg/min; MAR adjusted to show running dose at 1914.
--- NOTE | 2021-02-25 20:21 | PC.NURSE ---
Clonidine Patch Clonidine patch on left shoulder of patient on assessment. Patch undated; when asked, patient states he does wear these regularly and this one was put on about 1 week ago. Patch removed and placed in sharps container. Pharmacy notified of continued use.
[2021-02-25] MEDS: lactulose oral liq 20 gm/30 mL UDC 10 GM PO (20:39)
[2021-02-25] MEDS: carvedilol 25 mg Tablet 50 MG PO (20:39)
[2021-02-25] MEDS: cloNIDine 0.3 mg/24 hr Patch 1 PATCH TRANSDERMA (20:40)
--- NOTE | 2021-02-25 20:45 | PC.NURSE ---
Pain Patient complains of rib pain 9 out of 10 on a numeric 1-[address] Vargas notified and orders received for PRN pain medication. Morphine administered per JUL. Pain to be reassessed.
--- NOTE | 2021-02-25 20:47 | PC.NURSE ---
Clonidine Patch New patch applied to right shoulder. Dated and initialed
[2021-02-25] MEDS: labetalol 300 MG in sodium chloride 0.9% 240 ML 120 MG IV (21:23)
--- NOTE | 2021-02-25 23:10 | PC.NURSE ---
Vital Signs Vital signs charted at 2255 and 2258 were actually obtained prior to and following dialysis received earlier in the day. Refer to updated vital signs for patient status.
--- NOTE | 2021-02-25 23:30 | PC.NURSE ---
Nasal Cannula Off Message to nurse received from Dr. Gonzalez: target oxygen saturation 88-92%. Nasal cannula weaned down to 2 L at 2315 and turned off completely at 2330. Patients sats have maintained within target range.
[2021-02-25 23:34] LABS: Hepatitis C Virus Antibody Non-Reactive (Nonreactive)
[2021-02-26] VITALS (63 sets, daily range): BP systolic 120–203; BP diastolic 73–117; PULSE 66–99; RESP 9–25; TEMP 36.1–36.7; O2SAT 88–98; BMI 24.1
--- NOTE | 2021-02-26 01:27 | PC.NURSE ---
Labetolol Drip Off Patient blood pressure sustaining around 130 systolic, labetolol drip turned off per JUL. Dr. Vargas notified and blood pressure 144/86 at 0115.
[2021-02-26 03:21] LABS: ABG PCO2 44.9 mmHg (35-45); ABG PH Result 7.41 (7.35-7.45); Arterial Blood Gas Hematocrit 32.1 % (42-52); Base Excess ABG 3.6 mmol/L (-2.0-2.0); Blood Gas Allen Test Pos; Blood Gas Sample Site Radial, right; Blood Gas Sample Type Arterial; HCO3 ABG 28.7 mmol/L (22-26); Oxygen Device ROOM AIR; PO2 ABG 62.2 mmHg (80.0-100.0)
[2021-02-26] MEDS: morphine 4 mg/mL SDV 1 mL IVP ×2 (04:34→20:39)
[2021-02-26] MEDS: labetalol 300 MG in sodium chloride 0.9% 240 ML 90 MG IV (05:24)
[2021-02-26] MEDS: HYDROcodone-acetaminophen 5-325 mg Tablet 1 TAB PO ×3 (05:51→21:15)
[2021-02-26] MEDS: heparin 5,000 unit/mL INJ 1 mL 5000 UNIT SUBCUT ×2 (05:52→17:43)
[2021-02-26 06:08] LABS: Basophils % 0.1 %; Hematocrit 27.2 % (42.0-52.0); Hemoglobin 8.6 g/dL (11.7-16.6); Lymphocytes # 0.3 10^3/uL (0.8-4.8); Lymphocytes % 4.6 %; Mean Corpuscular HGB Conc 31.6 g/dL (30.0-36.0); Mean Corpuscular Hemoglobin 29.3 pg (28.0-34.0); Mean Corpuscular Volume 92.5 fl (80-94); Mean Platelet Volume 10.2 fL (7.4-10.4); Monocytes # 0.2 10^3/uL (0.2-0.9); Monocytes % 3.6 %; Neutrophils # 6.11 10^3/uL (1.8-7.7); Neutrophils % 91.3 %; Nucleated Red Blood Cells % 0 %; Platelet Count 196 10^3/cmm (130-400); Red Blood Count 2.94 10^6/uL (4.1-5.3); Red Cell Distribution Width 17.5 % (12.1-15.1); White Blood Count 6.7 10^3/uL (4.0-10.0)
--- NOTE | 2021-02-26 06:20 | PC.NURSE ---
Pain Patient received Hydrocodone for a pain level of 5 out of 10. Upon pain reassessment, patient rates pain at a 4 out of 10. Patient states this is an acceptable pain level and that he does not want any additional pain medication.
[2021-02-26 06:31] LABS: Alanine Aminotransferase < 5 U/L (0-41); Albumin Level 3.4 g/dL (3.5-5.2); Alkaline Phosphatase 106 IU/L (40-130); Anion Gap 18.6 (5-19); Aspartate Amino Transferase 11 U/L (0-40); Blood Urea Nitrogen 32 mg/dL (6-20); Calcium 9.5 mg/dL (8.5-10.5); Carbon Dioxide 26 mmol/L (22-29); Chloride 93 mmol/L (98-107); Globulin 3.7 g/dL (1.3-4.6); Glomerular Filtration Rate 10.6 mL/min (90-130); Glucose 126 mg/dL (65-115); Magnesium 1.9 mg/dL (1.7-2.3); Osmolality Calculated 280 mOsm/kg (285-295); Phosphorus 6.5 mg/dL (2.5-4.5); Sodium 131 mmol/L (136-145); Total Bilirubin 0.5 mg/dL (0.15-1.2); Total Protein 7.1 g/dL (6.6-8.7)
[2021-02-26 06:33] LABS: Ammonia 21 umol/L (16-60)
--- NOTE | 2021-02-26 06:36 | PC.NURSE ---
Shift Note Frequent safety and comfort rounds continue. Orders and/or nursing care completed as indicated. Patient monitored for response to intervention and treatment(s). Education provided includes information regarding SCDs, a clear liquid diet, and morphine/hydrocodone administration. Patient verbalized understanding. Will continue to monitor.
[2021-02-26 06:39] LABS: Potassium 6.6 mmol/L (3.5-5.1)
--- NOTE | 2021-02-26 07:18 | PM.PN ---
Subjective Subjective: Interval history: weak, lethargic. weaning off labetalol drip. still sob and edema Medications: Reviewed: Yes Medication Review Details: Current Medications Acetaminophen (Acetaminophen 325 Mg Tablet) 650 mg PO Q6H PRN PRN Reason: Mild/Mod Pain Or Temp >/= 101 Hydrocodone Bitart/Acetaminophen (Hydrocodone-Acetaminophen 5-325 Mg Tablet) 1 tab PO Q6H PRN PRN Reason: MODERATE PAIN Last Admin: 02/26/21 05:51 Dose: 1 tab Documented by: Carvedilol (Carvedilol 25 Mg Tablet) 50 mg PO BID@0900,2100 [facility] Last Admin: 02/25/21 20:39 Dose: 50 mg Documented by: Clonidine HCl (Clonidine 0.3 Mg/24 Hr Patch) 1 patch TRANSDERMA Q7D PRN PRN Reason: HIGH BLOOD PRESSURE Last Admin: 02/25/21 20:40 Dose: 1 patch Documented by: Cyclobenzaprine HCl (Cyclobenzaprine 10 Mg Tablet) 5 mg PO TID PRN PRN Reason: MUSCLE SPASMS Heparin Sodium (Porcine) (Heparin 5,000 Unit/Ml Inj 1 Ml) 5,000 unit SUBCUT Q12H [facility] Last Admin: 02/26/21 05:52 Dose: 5,000 unit Documented by: Hydralazine HCl (Hydralazine 20 Mg/Ml Inj 1 Ml) 5 mg IVP Q4H PRN PRN Reason: HYPERTENSION Last Admin: 02/25/21 19:50 Dose: 5 mg Documented by: Labetalol HCl 300 mg/ Sodium (Chloride) 300 mls @ 0 mls/hr IV .Q0M [facility]; Protocol Last Titration: 02/26/21 06:15 Dose: 0 mg/min, 0 mls/hr Documented by: Isosorbide Mononitrate (Isosorbide Mononitrate Er 60 Mg Tablet) 60 mg PO DAILY [facility] Lactulose (Lactulose Oral Liq 20 Gm/30 Ml Udc) 10 gm PO TID [facility] Last Admin: 02/25/21 20:39 Dose: 10 gm Documented by: Levofloxacin (Levofloxacin 500 Mg Tablet) 500 mg PO Q48H [facility] Morphine Sulfate (Morphine 4 Mg/Ml Sdv 1 Ml) 4 mg IVP Q6H PRN PRN Reason: SEVERE PAIN Last Admin: 02/26/21 04:34 Dose: 4 mg Documented by: Non-Formulary Medication (Minoxidil) 2.5 mg PO BID [facility] Last Admin: 02/25/21 17:42 Dose: Not Given Documented by: Non-Formulary Medication (Vit B,O-Wb-Mire-Selen-Vit D3-E [Renaplex-D]) 1 tab PO BEDTIME [facility] Last Admin: 02/25/21 21:19 Dose: Not Given Documented by: Non-Formulary Medication (Umeclidinium [Incruse Ellipta]) 1 inh INHALATION DAILY [facility] Ondansetron HCl (Ondansetron 2 Mg/Ml Sdv 2 Ml) 4 mg IVP Q4H PRN PRN Reason: NAUSEA AND VOMITING Pantoprazole Sodium (Pantoprazole Dr 40 Mg Tablet) 40 mg PO BID [facility] Last Admin: 02/25/21 17:17 Dose: 40 mg Documented by: Prednisone (Prednisone 20 Mg Tablet) 40 mg PO DAILY [facility] Senna/Docusate Sodium (Sennosides-Docusate Tablet) 1 tab PO BID [facility] Last Admin: 02/25/21 17:17 Dose: 1 tab Documented by: Sevelamer Carbonate (Sevelamer 800 Mg Tablet) 3,200 mg PO TIDWM [facility] Last Admin: 02/25/21 18:25 Dose: Not Given Documented by: Sevelamer Carbonate (Sevelamer 800 Mg Tablet) 800 mg PO BID PRN PRN Reason: WITH SNACKS Vitals/I&O/Wt Last Vital Signs Temp 97.9 F 02/26/21 04:15 Pulse 76 02/26/21 06:30 Resp 12 02/26/21 06:30 BP 155/93 02/26/21 06:30 Pulse Ox 95 02/26/21 06:30 02/25/21 02/26/21 02/26/21 22:59 06:59 14:59 Intake Total 1393.0 / 1393.0 1101.0 / 2494.0 Output Total 4300 / 4300 Balance -2907.0 / -2907.0 1101.0 / -1806.0 Weight last 48 hrs Weight 83.143 kg Weight 82.6 kg Weight 85.5 kg Weight 81.647 kg Physical Exam Narrative: EXAM NARRATIVE: more comfortable, SOB, weak in bed vs noted- BP improving heent- nc/at, eomi, anicteric neck- no jvp lungs crackles and wheezes b/l heart reg, + s1, s2 abd soft, nt, distended, + bs ext b/l edema LUE AVF w/ thrill and bruit neuro-a,a, o x 3, weak Data : 02/26/21 05:42 02/26/21 05:42 A&P Additional A&P Information 40 yr old man 1. ESRD- HD now- 3.5 hrs, 2k, remove 3 l as tolerated 2. hyperkalemia- med therapy and emergent HD 3. htn- monitor w/ hd - wean off labetalol- add norvasc -no ron-i/ arb until k improves 4. hyponatremia - should improve w/ hd -normal tsh 5. diastolic dysfunction - remove fluids w/ hd -bp control 6. bone- mineral- metabolism of ESRD - monitor ca, phos binders, f/u pth 7. anemia- hgb 8.6- epo when bp improves -check iron studies 8. + trop per cardiology seen and examined w/ RN- telehealth visit time spent 30 minutes discussed w/ RN Attestations Medical Necessity Statement*: esrd, htn, hyperkalemia, NSTEMI Time Spent in Patient Care: 16 - 35 minutes (>than 50% of time spent in counselling and/or direct pt care on unit). Coding Level of Care Code Acute Baker Bench for Cristi Diane
[2021-02-26 07:48] LABS: Ferritin 863 ng/mL (30-400); Iron 36 ug/dL (59-158); Total Iron Binding Capacity 224 mcg/dl; Unsaturated Iron Binding 188 ug/dL (112-347)
[2021-02-26] MEDS: insulin regular-human 10 UNIT in SYRINGE 1 EACH IVP (08:54)
[2021-02-26] MEDS: isosorbide mononitrate ER 60 mg Tablet PO (08:57)
[2021-02-26] MEDS: sodium polystyrene sulfonate 15 gm/60 mL Btl 30 GM PO (08:57)
[2021-02-26] MEDS: sevelamer 800 mg Tablet 3200 MG PO ×3 (08:57→17:42)
[2021-02-26] MEDS: lactulose oral liq 20 gm/30 mL UDC 10 GM PO ×3 (08:57→20:26)
[2021-02-26] MEDS: carvedilol 25 mg Tablet 50 MG PO ×2 (08:58→20:26)
[2021-02-26] MEDS: pantoprazole DR 40 mg Tablet PO ×2 (08:58→17:43)
[2021-02-26] MEDS: sennosides-docusate Tablet 1 TAB PO (08:58)
[2021-02-26] MEDS: cyclobenzaprine 10 mg Tablet 5 MG PO ×2 (08:59→23:58)
[2021-02-26] MEDS: dextrose 50% syringe 50 mL 25 ML IVP (08:59)
[2021-02-26] MEDS: predniSONE 20 mg Tablet 40 MG PO (09:00)
--- NOTE | 2021-02-26 09:36 | PM.PN ---
Subjective Subjective: Interval history: Is having some pain in his right side posterior rib cage, stating that he fell off a chair several days back. Denies formal diagnosis of cirrhosis. Abdomen is nondistended, but no pain, and tolerating oral intake well. Denies nausea or vomiting. No trouble breathing. More awake/alert today. Vitals/I&O/Wt Last Vital Signs Temp 97.9 F 02/26/21 04:15 Pulse 76 02/26/21 06:30 Resp 12 02/26/21 06:30 BP 155/93 02/26/21 06:30 Pulse Ox 95 02/26/21 06:30 02/25/21 02/26/21 02/26/21 22:59 06:59 14:59 Intake Total 1393.0 / 1393.0 1101.0 / 2494.0 Output Total 4300 / 4300 Balance -2907.0 / -2907.0 1101.0 / -1806.0 Weight last 48 hrs Weight 83.143 kg Weight 82.6 kg Weight 85.5 kg Weight 81.647 kg Physical Exam Const: COMMON NORMALS: no acute distress and patient oriented x3 EXAM LIMITATIONS: altered mental status GENERAL APPEARANCE: cooperative and lethargic ORIENTATION/CONSCIOUSNESS: Yes lethargic OTHER: Wakes up to voice, shoulder squeeze answers a few questions, promptly falls back asleep. HENMT: COMMON NORMALS: oropharynx normal Neck/C-Spine: COMMON NORMALS: no JVD Resp: COMMON NORMALS: normal respiratory effort AUSCULTATION: diminished lung sounds (Better) Cardio: COMMON NORMALS: no JVD, regular rhythm, S1 normal heart sound present, S2 normal heart sound present and No murmurs present (Cardio) RHYTHM: regular rhythm HEART SOUNDS: S1 normal heart sound present and S2 normal heart sound present GI: COMMON NORMALS: Normal to inspection, nondistended, normoactive bowel sounds present, Soft to palpation and non-tender PALPATION: Yes Soft to palpation Extremity: GENERAL: Yes edema (Chronic pitting and non-piting edema BL LE, 2+) Neuro: COMMON NORMALS: patient oriented x3 and moves all extremities SENSORIUM/ORIENTATION: Yes lethargic Skin: COMMON NORMALS: no rashes or lesions noted GENERAL SKIN EXAM: no rashes or lesions noted Data : 02/26/21 05:42 02/26/21 05:42 A&P Assessment and plan (1) Hypertensive emergency: Resolved. Weaned off labetalol. Will need to confirm whether he in fact takes amlodipine given angioedema reported with nifedipine. Monitor blood pressures. Additional hemodialysis today. Hypertensive emergency at presentation, extremely elevated blood pressure associated with chest pain. Blood pressure improved with labetalol drip, hemodialysis. Chest pain resolved. Monitor. Resume clonidine, Imdur, carvedilol. Hold spironolactone, lisinopril for now due to hyperkalemia. Follow-up troponin EKG series. Status: Acute (2) Acute respiratory failure with hypoxia: Improving. Weaning off oxygen. Air entry appears to be showing improvement. Requiring 6 L oxygen by nasal cannula on admission, at presentation needing up to 15 L. States has been ill for about 3 days with productive cough with change in sputum color. Diminished air entry. Severe acute COPD exacerbation. Levaquin, prednisone, collect sputum culture. Cannot entirely exclude pneumonia, although appears less likely. Small right pleural effusion, right lower lobe atelectasis. Acute diastolic congestive heart failure. Additional hemodialysis today. COVID-19 PCR pending. Status: Acute (3) Hyperkalemia: Better. Potassium still 6.6. Additional hemodialysis today. Status: Acute (4) Atelectasis: Incentive spirometry. Status: Acute (5) Acute diastolic CHF (congestive heart failure): Acute diastolic congestive heart failure. Hemodialysis today. Status: Acute (6) PHT (pulmonary hypertension): Noted. Status: Acute (7) Abnormality of rib determined by X-ray: Possibly healing fracture, but other etiologies, including due to malignant lesion not excluded. He now reports falling off a stool several days back. Discussed with him etiology other than fracture cannot be excluded also entirely. Will need follow-up. Status: Acute (8) Chest pain: Sternal sharp chest pain, possibly related to hypertensive emergency, although not as report pleuritic nature, worse with cough, deep inspiration, reproducible on palpation. Perhaps more so related to his recent shortness of breath, cough in the last 3 days. Complete troponin EKG series. Monitor blood pressures, treat severe hypertension. Troponin trend not suggestive of acute [place]. No chest pain apart from rib cage pain after recent fall off a chair. Consider follow-up assessment with stress testing. Status: Acute Additional A&P Information Acute/chronic encephalopathy: Recurrent episodes of somnolence. May be related to medications he is taking including cyclobenzaprine, [place]. He denies taking more than prescribed. I do not see documented history of liver cirrhosis, although CT repeat paracentesis. Heterogenous appearing liver, enlarged on CT in September, possibly cirrhosis or infiltrative neoplasm. History of ileus Smoking addiction Attestations Medical Necessity Statement*: Continue admission for additional hemodialysis given persistent hyperkalemia, potassium 6.6, treatment of improving respiratory failure with severe COPD exacerbation, optimization of blood pressure control in a gentleman with underlying ESRD. Coding Level of Care Code Acute Assembly Stock Supervisor for g Fwd Exam Comprehensive Diagnoses Hypertensive emergency I16.1 Acute respiratory failure with hypoxia J96.01 Hyperkalemia E87.5 Atelectasis J98.11 Acute diastolic CHF (congestive heart failure) I50.31 PHT (pulmonary hypertension) I27.20 Abnormality of rib determined by X-ray Q76.6 Chest pain R07.9
[2021-02-26 10:43] LABS: Glucose Point of Care 134 mg/dL (70-110)
[2021-02-26 11:23] LABS: Hepatitis B Surface AB > 1000.0 (11.5-1000); Hepatitis B Surface Antigen Non-Reactive (Nonreactive)
[2021-02-26] MEDS: amlodipine 10 mg Tablet PO (12:14)
[2021-02-26] MEDS: hyDRALAzine 20 mg/mL INJ 1 mL 5 MG IVP ×3 (15:20→20:45)
--- NOTE | 2021-02-26 15:23 | PC.NURSE ---
Dr. Gonzalez aware of multiple bag of labetalol running over yesterday and through the night. No new orders
[2021-02-26] MEDS: ipratropium-albuterol 3 mL Neb INHALATION ×2 (15:25→19:59)
--- NOTE | 2021-02-26 16:31 | PC.NURSE ---
PRN hydralazine was given with no results. SBP still 190's. New orders.
--- NOTE | 2021-02-26 20:00 | PC.NURSE ---
Addendum entered by Mague Trinh RN 02/26/21 23:01: Mother, Jo, would like to be contacted and informed of COVID test results upon receiving them. Original Note: Family Update MotherJo, called and received update on patient status from nurse. Information given on patient's blood pressure control, oxygen requirements, and dialysis treatments. Mother verbalized understanding.
--- NOTE | 2021-02-26 22:15 | PC.NURSE ---
Physician Communication Patient's systolic blood pressure ranging from 160-180s despite receiving doses of amlodipine, carvedilol, clonidine patch, PRN hydralazine, and pain medication per JUL. Dr. Vargas notified of patient status and message received to alert her if systolic BP remains =/>190. Further orders received for additional medication at 2315, orders carried out per JUL.
[2021-02-26] MEDS: hyDRALAzine 25 mg Tablet PO (23:22)
[2021-02-26] MEDS: ondansetron 2 mg/ML SDV 2 mL 4 MG IVP (23:58)
[2021-02-27] VITALS (42 sets, daily range): BP systolic 106–176; BP diastolic 59–108; PULSE 71–96; RESP 7–22; TEMP 36.6–36.7; O2SAT 88–97; BMI 23.3
--- NOTE | 2021-02-27 00:07 | PC.NURSE ---
Abdominal Pain/Nausea Patient complains of abdominal pain and slight nausea. Abdomen remains to be firm, round, and distended with no additional distention. Upon assessment, patient states abdomen is tender. Bowel sounds present in all 4 quadrants. All vital signs remain stable. Medications administered per JUL.
[2021-02-27] MEDS: ipratropium-albuterol 3 mL Neb INHALATION ×2 (02:54→08:02)
[2021-02-27] MEDS: heparin 5,000 unit/mL INJ 1 mL 5000 UNIT SUBCUT ×2 (05:31→18:26)
[2021-02-27 05:36] LABS: Hematocrit 27.4 % (42.0-52.0); Hemoglobin 8.6 g/dL (11.7-16.6); Lymphocytes # 0.4 10^3/uL (0.8-4.8); Lymphocytes % 5.9 %; Mean Corpuscular HGB Conc 31.4 g/dL (30.0-36.0); Mean Corpuscular Hemoglobin 29.2 pg (28.0-34.0); Mean Corpuscular Volume 92.9 fl (80-94); Mean Platelet Volume 9.9 fL (7.4-10.4); Monocytes # 0.5 10^3/uL (0.2-0.9); Monocytes % 6.8 %; Neutrophils # 5.93 10^3/uL (1.8-7.7); Nucleated Red Blood Cells % 0 %; Platelet Count 216 10^3/cmm (130-400); Red Blood Count 2.95 10^6/uL (4.1-5.3); Red Cell Distribution Width 17.9 % (12.1-15.1); White Blood Count 6.8 10^3/uL (4.0-10.0)
[2021-02-27] MEDS: HYDROcodone-acetaminophen 5-325 mg Tablet 1 TAB PO ×2 (05:38→15:08)
[2021-02-27 05:58] LABS: Alanine Aminotransferase 6 U/L (0-41); Albumin Level 3.5 g/dL (3.5-5.2); Alkaline Phosphatase 100 IU/L (40-130); Anion Gap 15.3 (5-19); Aspartate Amino Transferase 9 U/L (0-40); Blood Urea Nitrogen 22 mg/dL (6-20); Calcium 9.3 mg/dL (8.5-10.5); Carbon Dioxide 28 mmol/L (22-29); Chloride 92 mmol/L (98-107); Globulin 3.5 g/dL (1.3-4.6); Glomerular Filtration Rate 12.8 mL/min (90-130); Glucose 99 mg/dL (65-115); Magnesium 1.9 mg/dL (1.7-2.3); Osmolality Calculated 273 mOsm/kg (285-295); Phosphorus 6.6 mg/dL (2.5-4.5); Potassium 5.3 mmol/L (3.5-5.1); Sodium 130 mmol/L (136-145); Total Bilirubin 0.4 mg/dL (0.15-1.2)
--- NOTE | 2021-02-27 06:28 | PC.NURSE ---
Pain Education provided on PO hydrocodone on hlaf life and time taken to be effective. Patient does not wish for additional pain medication at this time.
--- NOTE | 2021-02-27 06:41 | PC.NURSE ---
Shift Note Frequent safety and comfort rounds continue. Orders and/or nursing care completed as indicated. Patient monitored for response to intervention and treatment(s). Education provided includes information regarding zofran/hydrocodone, SCDs, prescribed diet, and pain management goals. Patient verbalized understanding. Will continue to monitor.
--- NOTE | 2021-02-27 08:02 | PM.PN ---
Subjective Subjective: Interval history: arm pain, sob, less weak, very hungry. Medications: Reviewed: Yes Medication Review Details: Current Medications Acetaminophen (Acetaminophen 325 Mg Tablet) 650 mg PO Q6H PRN PRN Reason: Mild/Mod Pain Or Temp >/= 101 Hydrocodone Bitart/Acetaminophen (Hydrocodone-Acetaminophen 5-325 Mg Tablet) 1 tab PO Q6H PRN PRN Reason: MODERATE PAIN Last Admin: 02/27/21 05:38 Dose: 1 tab Documented by: Albuterol/Ipratropium (Ipratropium-Albuterol 3 Ml Neb) 3 ml INHALATION Q6H.RESPIRATORY [facility] Last Admin: 02/27/21 08:02 Dose: 3 ml Documented by: Amlodipine Besylate (Amlodipine 10 Mg Tablet) 10 mg PO DAILY [facility] Last Admin: 02/26/21 12:14 Dose: 10 mg Documented by: Carvedilol (Carvedilol 25 Mg Tablet) 50 mg PO BID@0900,2100 [facility] Last Admin: 02/26/21 20:26 Dose: 50 mg Documented by: Clonidine HCl (Clonidine 0.3 Mg/24 Hr Patch) 1 patch TRANSDERMA Q7D PRN PRN Reason: HIGH BLOOD PRESSURE Last Admin: 02/25/21 20:40 Dose: 1 patch Documented by: Cyclobenzaprine HCl (Cyclobenzaprine 10 Mg Tablet) 5 mg PO TID PRN PRN Reason: MUSCLE SPASMS Last Admin: 02/26/21 23:58 Dose: 5 mg Documented by: Heparin Sodium (Porcine) (Heparin 5,000 Unit/Ml Inj 1 Ml) 5,000 unit SUBCUT Q12H [facility] Last Admin: 02/27/21 05:31 Dose: 5,000 unit Documented by: Hydralazine HCl (Hydralazine 20 Mg/Ml Inj 1 Ml) 5 mg IVP Q4H PRN PRN Reason: HYPERTENSION Last Admin: 02/26/21 20:45 Dose: 5 mg Documented by: Hydralazine HCl (Hydralazine 25 Mg Tablet) 25 mg PO TID [facility] Last Admin: 02/26/21 23:22 Dose: 25 mg Documented by: Isosorbide Mononitrate (Isosorbide Mononitrate Er 60 Mg Tablet) 120 mg PO DAILY [facility] Lactulose (Lactulose Oral Liq 20 Gm/30 Ml Udc) 10 gm PO TID [facility] Last Admin: 02/26/21 20:26 Dose: 10 gm Documented by: Levofloxacin (Levofloxacin 500 Mg Tablet) 500 mg PO Q48H [facility] Morphine Sulfate (Morphine 4 Mg/Ml Sdv 1 Ml) 4 mg IVP Q6H PRN PRN Reason: SEVERE PAIN Last Admin: 02/26/21 20:39 Dose: 4 mg Documented by: Non-Formulary Medication (Minoxidil) 2.5 mg PO BID [facility] Last Admin: 02/26/21 17:43 Dose: Not Given Documented by: Non-Formulary Medication (Vit B,J-Iy-Vrdp-Selen-Vit D3-E [Renaplex-D]) 1 tab PO BEDTIME [facility] Last Admin: 02/26/21 20:50 Dose: Not Given Documented by: Non-Formulary Medication (Umeclidinium [Incruse Ellipta]) 1 inh INHALATION DAILY [facility] Last Admin: 02/26/21 10:58 Dose: Not Given Documented by: Ondansetron HCl (Ondansetron 2 Mg/Ml Sdv 2 Ml) 4 mg IVP Q4H PRN PRN Reason: NAUSEA AND VOMITING Last Admin: 02/26/21 23:58 Dose: 4 mg Documented by: Pantoprazole Sodium (Pantoprazole Dr 40 Mg Tablet) 40 mg PO BID [facility] Last Admin: 02/26/21 17:43 Dose: 40 mg Documented by: Prednisone (Prednisone 20 Mg Tablet) 40 mg PO DAILY [facility] Last Admin: 02/26/21 09:00 Dose: 40 mg Documented by: Senna/Docusate Sodium (Sennosides-Docusate Tablet) 1 tab PO BID [facility] Last Admin: 02/26/21 17:43 Dose: Not Given Documented by: Sevelamer Carbonate (Sevelamer 800 Mg Tablet) 3,200 mg PO TIDWM [facility] Last Admin: 02/26/21 17:42 Dose: 3,200 mg Documented by: Vitals/I&O/Wt Last Vital Signs Temp 98.1 F 02/27/21 04:00 Pulse 90 02/27/21 06:00 Resp 12 02/27/21 06:00 BP 152/84 02/27/21 06:00 Pulse Ox 93 02/27/21 06:00 02/26/21 02/27/21 02/27/21 22:59 06:59 14:59 Intake Total 600 / 900.1 582 / 1482.1 Balance 600 / -2399.9 582 / -1817.9 Weight last 48 hrs Weight 80.104 kg Weight 83.6 kg Weight 83.143 kg Weight 82.6 kg Weight 85.5 kg Weight 81.647 kg Physical Exam Narrative: EXAM NARRATIVE: uncomfortable in bed, less sob. vs noted- BP still elevated and has edeam heent- nc/at, eomi, anicteric neck- no jvp lungs crackles b/l heart reg, + s1, s2 abd soft, nt, distended, + bs ext b/l edema LUE AVF w/ thrill and bruit neuro-a,a, o x 3, weak Data : 02/27/21 04:20 02/27/21 04:20 A&P Additional A&P Information 40 yr old man 1. ESRD- HD now- 3.5 hrs, 2k, remove 3 l as tolerated 2. hyperkalemia- cont HD. -recommend fistulagram by vascular surgery as outpt 3. htn- monitor w/ hd - wean off BP meds - dec EDW -no ron-i/ arb until k improves -try to place on daily meds to help w/ compliance 4. hyponatremia - should improve w/ hd -normal tsh 5. diastolic dysfunction - remove fluids w/ hd -bp control 6. bone- mineral- metabolism of ESRD - monitor ca, phos binders, f/u pth 7. anemia- hgb 8.6- epo - iron sat 16% ferritin 863- one dose iv iron 8. + trop per cardiology seen and examined w/ RN- telehealth visit time spent 30 minutes discussed w/ RN Attestations Medical Necessity Statement*: chf, htn, esrd Time Spent in Patient Care: 16 - 35 minutes Coding Level of Care Code Acute Certified Ophthalmic Assistant for Cristi Diane
[2021-02-27] MEDS: amlodipine 10 mg Tablet PO (08:32)
[2021-02-27] MEDS: pantoprazole DR 40 mg Tablet PO ×2 (08:32→18:25)
[2021-02-27] MEDS: isosorbide mononitrate ER 60 mg Tablet 120 MG PO (08:35)
[2021-02-27] MEDS: carvedilol 25 mg Tablet 50 MG PO (08:35)
[2021-02-27] MEDS: lactulose oral liq 20 gm/30 mL UDC 10 GM PO ×2 (08:35→15:08)
[2021-02-27] MEDS: sennosides-docusate Tablet 1 TAB PO ×2 (08:35→18:30)
[2021-02-27] MEDS: sevelamer 800 mg Tablet 3200 MG PO ×3 (08:36→18:30)
[2021-02-27] MEDS: ferric gluconate 125 MG in sodium chloride 0.9% (100 ml) 100 ML 110 MG IV (08:37)
[2021-02-27] MEDS: acetaminophen 325 mg Tablet 650 MG PO ×2 (08:45→18:26)
[2021-02-27] MEDS: morphine 4 mg/mL SDV 1 mL IVP (09:50)
--- NOTE | 2021-02-27 10:08 | PC.CHAP ---
Pastoral Care Encounter/Spiritual Assessment Type of Contact [] Declined crm architect visit [] Patient/Family/Request visit [] Outpatient visit [] Follow-up visit [] Physician referral [] Code/Alert [x] Routine visit [] Staff referral [] Actively dying [] Patient sleeping [] Family support [] [] Out of room [] Palliative care [] [x] Receiving care in room [] Pre-surgical visit [] Trauma [] Long length of stay [x] ICU visit [x] Other: sitting up in bed Relational/Emotional Strength [] Patient feels connected with others/family/visitors/staff [] Distress [] Loneliness/isolation [] Abandonment Spirituality of Patient [] Person of Ct [] Attends Hindu of their Ct [] Believes in Prayer [] Reads Bible or Christianity materials [] There are Spiritual issues to be addressed Guest Relations Representative Interventions [x] Prayer [] Active listening [] Non-anxious presence [] Spiritual/emotional support [] Crisis/trauma care [] Spiritual counseling [] Bereavement support [] Provided bereavement packet [] Provided Bible/devotional materials [] Provided toy/stuffed animal, coloring book to patient or family member [] Provided Communion [] Anointing/[place] [] Salvation [x] Completed spiritual assessment [] Other: Impact on Illness or Injury [] Angry [] Fearful [] Anxious [] Often cries [] Exhaustion [] Unable to work [] Unable to attend restorationist [] Unable to walk/stand [] Unable to read [] Unable to drive [] Unable to eat/drink [] Unable to sleep [] Unable to be with family [] Patient intubated [] Other: Summary Time spent with patient
[2021-02-27 11:04] LABS: Coronavirus Test Green County Not Detected
--- NOTE | 2021-02-27 13:54 | PC.NURSE ---
Patient reported pain of 7 on 0-10 pain scale this AM. Tylenol brought pain to 6. PRN morphine brought pain to 3. Current plan is for patient to receive dialysis this afternoon and discharge to home. Patient is currently resting after consuming lunch. SR 73, O2 91, BP 136/86.
[2021-02-27] MEDS: lidocaine 5% Patch 1 PATCH TOPICAL (14:01)
[2021-02-27] MEDS: levoFLOXacin 500 mg Tablet PO (18:25)
--- NOTE | 2021-02-27 22:18 | PM.DCS ---
Discharge Providers Date of Admission: 02/25/21 12:23 Date of Discharge: February 27, 2021 Attending Provider at Admission: Bob Gonzalez Attending Provider at Discharge: Bob Gonzalez Primary Care Provider: Mal Junior Diagnoses at Discharge Discharge Diagnosis (1) Hypertensive emergency: Status: Acute (2) Acute respiratory failure with hypoxia: Status: Acute (3) Hyperkalemia: Status: Acute (4) Atelectasis: Status: Acute (5) Acute diastolic CHF (congestive heart failure): Status: Acute (6) PHT (pulmonary hypertension): Status: Acute (7) Abnormality of rib determined by X-ray: Status: Acute (8) Chest pain: Status: Acute Reason for Visit Reason for Visit: TROUBLE BREATHING Brief History: 40-year-old gentleman with history of ESRD, hemodialysis MWF, poor adherence, recurrent episodes of somnolence, abdominal distention, congestive heart failure, chronic lower extremity swelling, COPD, smoking addiction, other chronic problems, has been experiencing shortness of breath over the last 3 days, reports with productive cough, sometimes with color change to the phlegm, denies any fever, has been having mild headache, in ER hypoxic on presentation, saturation as low as 75%, initially requiring up to 15 L of oxygen, subsequently down to 4, currently 6 L to maintain saturation 93%. CTA without PE, enlarged left heart chambers, small right pleural effusion with adjacent right lower lobe atelectasis. Abnormality in posterior right sixth rib noted incidentally on CTA, probably a healing fracture, new since 09/13/2020. Bone lesion could not be excluded. He reported also sharp sternal chest pain worse with coughing and inspiration, currently resolved, but reproducible on palpation. His blood pressure initially was very elevated up as high as 235/155, had to be started on labetalol drip in ER. He is afebrile, without leukocytosis. Noted mild hyponatremia, 132, hyperkalemia, potassium 7, bicarb 24, anion gap 24. Alk phos 142, other liver parameters normal. Troponin baseline 67, 2-hour 53.7. NT proBNP more than 70,000, similar to last 2 values in September. He does not usually use supplemental oxygen. He lives at home with his mother. He had vaccination for COVID-19. When asked when his last hemodialysis was, states Thursday. When asked if state for the full session, states he has. When asked if he missed any sessions last week, does not reply. Denies taking any extra medication has been in his usual. Abdomen chronically distended, reports some abdominal discomfort recently. No nausea or vomiting. No diarrhea, no melena or hematochezia. Reports last bowel movement day before yesterday, last meal yesterday. Reports is passing flatus. States he is hungry and wants to eat. Hospital Course Hospital Course In the hospital underwent treatment of multifactorial causes of hypoxia including for severe COPD exacerbation with short course of prednisone, Levaquin, breathing treatments. Continue antibiotic due to possible pneumonia as well. Noted small right pleural effusion, right lower lobe atelectasis. At presentation also noted acute hypercapnia which improved with treatment. Encouraged to incentive spirometry. For acute CHF exacerbation with fluid overload underwent hemodialysis with additional session on Thursday, and again today. On presentation with severe hyperkalemia which improved with initial dialysis, but required additional dialysis yesterday and today. Of note left wrist fistula noted not functioning optimally, due to this he is encouraged to make sure to keep his appointment with his vascular surgeon. Due to recurrent hyperkalemia his lisinopril and spironolactone are discontinued. Please follow-up lab work in office. On presentation with chest pain in the setting of elevated blood pressure, subsequently with pain in the right posterior rib cage. Reproducible on palpation. Reported a fall off a chair recently. Of note seen to have abnormality of 6 right rib, possibly healing fracture, but other etiologies including due to lytic malignant lesion not excluded. Discussed with him. This will need additional follow-up. Discussed with him also prior imaging of the liver showing heterogenous appearance, again with malignancy not excluded, this will also need additional follow-up. Consider referral to hepatology. Perhaps biopsy may be considered given suspicion for possible cirrhosis otherwise, not so far formally diagnosed. Initially with noted acute encephalopathy/somnolence, possibly combination secondary to hypoxia, hypercapnia, metabolic abnormalities, there is gradually resolved. Ammonia level checked and was normal. Today he is doing much better. He denies trouble breathing. Bothered by some pain in the posterior rib cage for which he is provided also with lidocaine patch. Feels ready to return home. Of note blood pressure is very elevated at presentation and intermittently through hospitalization requiring several doses of IV hydralazine. These gradually improved with treatment and additional sessions of hemodialysis. Initially with hypertensive emergency due to elevated blood pressure chest pain. No recurrence of chest pain, no suggestion of acute VT while in the hospital, with some triple elevation without peak. Please consider referral for additional risk stratification by stress testing. He is encouraged to continue monitoring his blood pressure closely and maintain a log his Imdur dose is increased to 120 mg daily. Continue to encourage smoking cessation. Physical Exam Const: COMMON NORMALS: no acute distress, patient oriented x3 and alert GENERAL APPEARANCE: cooperative and comfortable ORIENTATION/CONSCIOUSNESS: Yes awake HENMT: COMMON NORMALS: oropharynx normal Neck/C-Spine: COMMON NORMALS: no JVD Resp: COMMON NORMALS: normal respiratory effort and clear to auscultation bilaterally AUSCULTATION: clear to auscultation bilaterally Cardio: COMMON NORMALS: no JVD, regular rhythm, S1 normal heart sound present, S2 normal heart sound present and No murmurs present (Cardio) RHYTHM: regular rhythm HEART SOUNDS: S1 normal heart sound present and S2 normal heart sound present GI: COMMON NORMALS: Normal to inspection, nondistended, normoactive bowel sounds present, Soft to palpation and non-tender PALPATION: Yes Soft to palpation Extremity: GENERAL: Yes edema (Chronic pitting and non-piting edema BL LE, 2+) Neuro: COMMON NORMALS: patient oriented x3 and moves all extremities SENSORIUM/ORIENTATION: Yes alert Skin: COMMON NORMALS: no rashes or lesions noted GENERAL SKIN EXAM: no rashes or lesions noted Discharge Data Data Completed and Pending: Completed Studies During Hospitalization Category Date Time Status CT angio chest PE protcl [id number] Stat Cat Scan 02/25/21 11:37 Completed XR chest 1V sabino ble [id number] Urgent Exams 02/25/21 11:13 Completed Labs from last 24 hours 02/27/21 02/27/21 02/25/21 04:20 04:20 11:10 WBC 6.8 RBC 2.95 L Hgb 8.6 L Hct 27.4 L MCV 92.9 MCH 29.2 MCHC 31.4 RDW 17.9 H Plt Count 216 MPV 9.9 Neut % (Auto) 87.0 Lymph % (Auto) 5.9 [place] % (Auto) 6.8 Eos % (Auto) 0.0 Baso % (Auto) 0.0 Neut # (Auto) 5.93 Lymph # (Auto) 0.4 L [place] # (Auto) 0.5 Eos # (Auto) 0.0 Baso # (Auto) 0.0 Nucleated RBC % (a uto) 0 Nucleated RBCs # 0.0 Sodium 130 L Potassium 5.3 H Chloride 92 L Carbon Dioxide 28 Anion Gap 15.3 BUN 22 H Creatinine 5.1 H GFR Calculation 12.8 L Glucose 99 Calculated Osmolal ity 273 L Calcium 9.3 Phosphorus 6.6 H Magnesium 1.9 Total Bilirubin 0.4 AST 9 ALT 6 Alkaline Phosphata se 100 Total Protein 7.0 Albumin 3.5 Globulin 3.5 Nasal/Oral COVID-1 9 PCR Not detected Vitals: Last Vital Signs Temp 97.9 F 02/27/21 18:00 Pulse 81 02/27/21 18:55 Resp 20 H 02/27/21 18:55 BP 158/91 02/27/21 18:55 Pulse Ox 97 02/27/21 18:55 Discharge Plan Discharge Patient Disposition: Home Condition: Stable Prescriptions: New levofloxacin 500 mg Tablet 500 mg PO Q48H Qty: 3 RF: 0 Continued carvedilol 25 mg tablet 50 mg PO BID RF: 0 Incruse Ellipta 62.5 mcg/actuation blister with device 1 inh INHALATION DAILY RF: 0 clonidine 0.3 mg/24 hr patch weekly 0.3 mg transdermal Q7D RF: 0 amlodipine 10 mg tablet 10 mg PO BEDTIME RF: 0 hydrocodone-acetaminophen 5-325 mg tablet 1 tab PO Q6H PRN (Reason: Pain) RF: 0 omeprazole 40 mg capsule,delayed release(DR/EC) 40 mg PO BID RF: 0 minoxidil 2.5 mg tablet 2.5 mg PO BID RF: 0 clonidine HCl 0.2 mg tablet 0.2 mg PO BID RF: 0 pantoprazole 40 mg tablet,delayed release (DR/EC) 40 mg PO BID RF: 0 cyclobenzaprine 5 mg tablet 5 mg PO TID PRN (Reason: Spasms) RF: 0 lactulose 10 gram/15 mL solution 15 ml PO TID RF: 0 sevelamer carbonate [Renvela] 800 mg tablet See Rx Instructions .ROUTE .COMPLEX RF: 0 Stimulant Laxative Plus 8.6-50 mg tablet 1 tab PO BID RF: 0 RenaPlex-D 800 mcg-12.5 mg -2,000 unit tablet 1 tab PO BEDTIME RF: 0 Changed isosorbide mononitrate 60 mg tablet extended release 24 hr 120 mg PO DAILY Qty: 60 RF: 0 Discontinued lisinopril 20 mg tablet 20 mg PO DAILY RF: 0 lisinopril 40 mg tablet 40 mg PO DAILY RF: 0 spironolactone 50 mg tablet 50 mg PO DAILY RF: 0 Discharge Orders: Discharge Order (Routine); Ordered 02/27/21 Ordered By: Bob Gonzalez Referrals: Vascular, surgeon [Other] (THIS APPOINTMENT WILL BE THRU [facility] , SCHEDULED .PATIENT KNOWS THIS INSTRUCTIONS. ) Hank Cruz MD [Referring] - 2 weeks (MAL FOR HIS USUAL FOLLOW UP AND TIME Thursday TIME AT 11:30 AMA TO FOLLOW PATIENT AT [facility]) Mal Junior [Primary Care Provider] - 4-7 days (THIS APPOINTMENT SCHEDULED AT [facility] FOR THE FOLLOWING DATE OF MARCH 05, 2021 AT 1:20 PM ) Discharge Diet: As Directed Discharge Activity: Increase activity as tolerated Patient Instructions: Levofloxacin (By mouth), Dialysis Diet (DC), Hyperkalemia (DC), End Stage Kidney Disease (DC), Shortness of Breath (DC), COPD Stoplight, Chest Pain Stoplight, Opioid Safety Activity Restrictions/Additional Instructions: Please continue follow-up with your hemodialysis center and [employer] education teacher. Continue hemodialysis renal diet. Complete antibiotic course for COPD exacerbation. Please follow-up with your primary doctor to assess for resolution of COPD exacerbation. Please note your COVID-19 confirmatory test is pending. Please follow-up with your primary doctor for additional closer assessment of your liver. Please note that back in January your liver was seen enlarged and with very heterogenous appearance on abdominal CT. This may be concerning for liver cirrhosis or infiltrative neoplasm. Please discuss with your primary doctor referral for additional imaging/testing, referral to liver specialist, consideration of liver biopsy. Continue to abstain from any alcohol, even in small amounts. Avoid any NSAIDs like ibuprofen, Aleve, etc. Do not take more than 2000 mg of acetaminophen a day. Please follow-up also with your primary doctor with regards to sixth right rib lesion, which may be a healing fracture after recent fall, but cannot at this time exclude destructive bone lesion/possible malignant cause. Please make sure to follow-up with your vascular surgeon on March 12 to reassess your fistula which is found not functioning optimally. Please monitor your blood pressures closely at home 3 times daily, write down values to discuss with your primary doctor, [employer] education teacher. Please note your Imdur dose is increased. If your blood pressure persistently stays elevated above 190 systolic (top number or 110 diastolic (bottom number), despite taking your medications or you experience chest pain or pressure, or other concerning symptoms, please call 911. Please do not take lisinopril or spironolactone any further due to very high potassium seen on admission. Both these medications can contribute to retention of potassium. Please maintain low potassium diet. Discharge Attestations Time Spent in Discharge Care*: greater than 30 min Status at Discharge: Cognitive status at discharge: cognitively intact, Behavioral status at discharge: cooperative, Quality Metrics Clinical Quality Measures During this hospital stay, did patient experience: None Coding Level of Care Code Acute [facility] note Diagnoses Hypertensive emergency I16.1 Acute respiratory failure with hypoxia J96.01 Hyperkalemia E87.5 Atelectasis J98.11 Acute diastolic CHF (congestive heart failure) I50.31 PHT (pulmonary hypertension) I27.20 Abnormality of rib determined by X-ray Q76.6 Chest pain R07.9
--- NOTE | 2021-03-04 14:55 | PC.RESP ---
SMOKING CESSATION AND PULMONARY REHAB INFORMATION SENT TO PATIENT.
== END 2021-02-27 18:57 | disposition home or self-care (01) | DRG 304 ==
LOC: ER 11:16 → ICU 13:00
PROVIDERS: Emergency Medicine; Internal Medicine Nephrology; Admitting Provider Internal Medicine; Emergency Provider Family Medicine; PCP Family Medicine; Visit Provider Internal Medicine
DX: I16.1 Hypertensive emergency (principal); N18.6 End stage renal disease; I50.31 Acute diastolic (congestive) heart failure; J96.02 Acute respiratory failure with hypercapnia; J96.01 Acute respiratory failure with hypoxia; J44.1 Chronic obstructive pulmonary disease with (acute) exacerbation; G93.40 Encephalopathy, unspecified; I13.2 Hypertensive heart and chronic kidney disease with heart failure and with stage 5 chronic kidney disease, or end stage renal disease; Z99.2 Dependence on renal dialysis; D63.1 Anemia in chronic kidney disease; F41.9 Anxiety disorder, unspecified; F17.210 Nicotine dependence, cigarettes, uncomplicated; M51.36 Other intervertebral disc degeneration, lumbar region; E87.5 Hyperkalemia; I27.20 Pulmonary hypertension, unspecified; S22.31XD Fracture of one rib, right side, subsequent encounter for fracture with routine healing; W19.XXXD Unspecified fall, subsequent encounter; Z79.891 Long term (current) use of opiate analgesic
CPT/HCPCS: 36415; 36416; 36600; 71045; 71275; 80051; 80053; 82140; 82330; 82728; 82803; 82805; 82962; 83540; 83550; 83735; 83880; 84100; 84443; 84484; 85025; 86706; 86803; 87340; 87635; 90935; 93005; 94640; 94664; 94760; 96365; 96372; 96375; 99285; J0360; J0610; J1644; J1815; J2270; J2405; J2916; J2930; J3490; J7050; J7512; Q3014; Q9967

== ENCOUNTER 2021-03-01 13:41 | Emergency (ER) | payer MEDICARE, MEDICAID, SELFPAY ==
[2021-03-01 13:51] VITALS: BP 208/118; PULSE 90; RESP 18; TEMP 36.2; O2SAT 96; BMI 23.1
--- NOTE | 2021-03-01 14:20 | ED_ITS ---
HPI - Headache General: Chief Complaint: Headache Stated Complaint: PAIN IN BACK OF HEAD SWELLING AROUND EYES Time Seen by Provider: 03/01/21 14:19 History of Present Illness: HPI Narrative: Mr. Gibbs is a 40-year-old gentleman with complex past medical history including end-stage renal disease on dialysis, COPD, pulmonary embolism and recent hospitalization for hypertensive emergency presents the emergency department due to generalized complaint. He en dorses headache, abdominal pain, and generalized malaise. Symptom onset was last night and woke him up from sleep. He describes a moderate intensity stabbing pain in the back of his head. He additionally notes left eye swelling. He denies frequent history of headaches. He has mild chest discomfort. His abdominal pain is generalized without GI upset or diarrhea. He has not tried home medications. He reports compliance with his medication regimen. No other specific exacerbating or alleviating factors. Review of Systems General: Reports: 10 or more systems reviewed and unremarkable except in HPI and below PFSH ED PFSH: Medical History Acute diastolic CHF (congestive heart failure) Anasarca Anemia Anxiety with depression Arteriovenous fistula for hemodialysis in place, secondary Congestive heart failure COPD (chronic obstructive pulmonary disease) Current smoker Degenerative disc disease, lumbar End-stage renal disease on hemodialysis Gross hematuria Hemoptysis Hepatomegaly Hyperkalemia Hypertension Hypertensive emergency PHT (pulmonary hypertension) Surgical History H/O hand surgery Amputation right 2&3 fingers 2017 History of adenoidectomy Family History Father No problems noted. Other Hypertension Social History Smoking and tobacco status: current every day smoker Alcohol intake: never Marital status: Number of children: 3 Current occupational status: disabled History of recent travel: No Physical Exam Narrative: EXAM NARRATIVE: GENERAL/CONSTITUTIONAL -chronically ill-appearing. Eyes - PERRL, no conjunctival injection. Left periorbital edema greater than right. No pain with extraocular movements. No evidence of entrapment. ENMT - Atraumatic external nose and ears. Moist mucous membranes NECK - supple. trachea midline CARDIOVASCULAR - regular rate and rhythm. RESPIRATORY -clear to auscultation bilaterally. ABDOMEN/GI -mild generalized tenderness palpation. Nondistended. No peritonitis. MSK - Extremities without obvious deformity or tenderness to palpation SKIN - Warm, Dry NEURO - alert and appropriately oriented. Moves all extremities equally. Course ED course: - Patient was seen and evaluated by me at bedside - Patient placed on cardiac monitors, IV access obtained - Initial evaluation notable for exam as noted, no acute distress. - Labs notable for no leukocytosis, normocytic anemia. Metabolic panel evidence of likely dehydration, fluids given. No emergent need for dialysis. - Imaging notable for no acute abnormality to explain patient's symptoms - Upon serial reexamination after treatment the patient was improved - Based on patient history, evaluation, labs, and imaging as interpreted the most likely cause of the patient's condition is unclear, there does appear to be mild preseptal cellulitis without evidence of deep infection - The results of ED evaluation were discussed with the patient including prescriptions and/or symptomatic cares (if applicable) including appropriate and responsible use, followup plan, and return precautions. The patient verbalized understanding and felt safe for discharge. Additionally patient felt that he could safely wait for his dialysis appointment. - Patient discharged in satisfactory condition. Vital Signs: Vital signs: Vital Signs Temperature 97.1 F L 03/01/21 13:51 Pulse Rate 70 03/01/21 19:46 Respiratory Rate 18 03/01/21 19:46 Blood Pressure 178/96 03/01/21 19:46 Pulse Oximetry 100 03/01/21 19:46 MDM - Headache Medical Records: Attestation: I reviewed the patient's medical records. Lab Data: Attestation: I reviewed the patient's lab results. Labs: Lab Results 03/01/21 03/01/21 03/01/21 14:40 14:40 14:40 WBC 6.5 10^3/uL 10^3/ uL (4.0-10.0) RBC 3.07 10^6/uL L 10 ^6/uL (4.1-5.3) Hgb 9.0 g/dL L g/dL (11.7-16.6) Hct 28.5 % L % (42.0-52.0) MCV 92.8 fl fl (80-94) MCH 29.3 pg pg (28.0-34.0) MCHC 31.6 g/dL g/dL (30.0-36.0) RDW 17.7 % H % (12.1-15.1) Plt Count 222 10^3/cmm 10^3 /cmm (130-400) MPV 9.8 fL fL (7.4-10.4) Neut % (Auto) 74.0 % % Lymph % (Auto) 11.8 % % [place] % (Auto) 6.5 % % Eos % (Auto) 6.6 % % Baso % (Auto) 0.8 % % Neut # (Auto) 4.81 10^3/uL 10^3 /uL (1.8-7.7) Lymph # (Auto) 0.8 10^3/uL 10^3/ uL (0.8-4.8) Piatt # (Auto) 0.4 10^3/uL 10^3/ uL (0.2-0.9) Eos # (Auto) 0.4 10^3/uL 10^3/ uL (0.0-0.8) Baso # (Auto) 0.1 10^3/uL 10^3/ uL (0.0-0.1) Nucleated RBC % (a uto) 0 % % Nucleated RBCs # 0.0 /100WBC /100W BC Sodium 132 mmol/L L mmol /L (136-145) Potassium 5.2 mmol/L H mmol /L (3.5-5.1) Chloride 93 mmol/L L mmol/ L (98-107) Carbon Dioxide 24 mmol/L mmol/L (22-29) Anion Gap 20.2 H (5-19) BUN 41 mg/dL H mg/dL (6-20) Creatinine 5.8 mg/dL H* mg/d L (0.7-1.2) GFR Calculation 11.0 mL/min L mL/ min (90-130) Glucose 72 mg/dL mg/dL (65-115) Calculated Osmolal ity 283 mOsm/kg L mOs m/kg (285-295) Lactate 0.7 mmol/L mmol/L (0.5-2.2) Calcium 9.3 mg/dL mg/dL (8.5-10.5) Total Bilirubin 0.5 mg/dL mg/dL (0.15-1.2) AST 8 U/L U/L (0-40) ALT 6 U/L U/L (0-41) Alkaline Phosphata se 108 IU/L IU/L (40-130) Troponin T Baselin e Troponin T 120 Min [place] Troponin T Total Protein 7.2 g/dL g/dL (6.6-8.7) Albumin 3.5 g/dL g/dL (3.5-5.2) Globulin 3.7 g/dL g/dL (1.3-4.6) Lipase 21 U/L U/L (13-60) 03/01/21 03/01/21 14:40 17:09 WBC RBC Hgb Hct MCV MCH MCHC RDW Plt Count MPV Neut % (Auto) Lymph % (Auto) [place] % (Auto) Eos % (Auto) Baso % (Auto) Neut # (Auto) Lymph # (Auto) [place] # (Auto) Eos # (Auto) Baso # (Auto) Nucleated RBC % (a uto) Nucleated RBCs # Sodium Potassium Chloride Carbon Dioxide Anion Gap BUN Creatinine GFR Calculation Glucose Calculated Osmolal ity Lactate Calcium Total Bilirubin AST ALT Alkaline Phosphata se Troponin T Baselin e 56 ng/L H ng/L (0-15) Troponin T 120 Min [place] 50.25 ng/L H ng/L (0-15) Delta Troponin T -5.75 ABS# L ABS# (0-10) Total Protein Albumin Globulin Lipase EKG Data^: EKG 1: Attestation: I personally reviewed and interpreted this EKG as follows: EKG interpretation date: 03/01/21 EKG interpretation time: 15:16 Interpretation: Twelve-lead EKG shows a regular rhythm at a rate of 83. NH interval 199, QRS duration 112, QTc 418 Normal axis Interpretation: Sinus rhythm. Interventricular conduction delay EKG 2: Attestation: I personally reviewed and interpreted this EKG as follows: EKG interpretation date: 03/01/21 EKG interpretation time: 16:58 Interpretation: Twelve-lead EKG shows a regular rhythm and rate of 59. NH interval 180, QRS duration 110, QTc 427. Normal axis. Interpretation: Sinus rhythm. Interventricular conduction delay. Similar to prior. Discharge Plan Discharge Patient Disposition: Home Clinical Impression: Headache, ESRD (end stage renal disease), Preseptal cellulitis of left eye Condition: Stable Prescriptions: New clindamycin HCl 150 mg capsule 450 mg PO TID 7 Days Qty: 63 RF: 0 No Action carvedilol 25 mg tablet 50 mg PO BID RF: 0 Incruse Ellipta 62.5 mcg/actuation blister with device 1 inh INHALATION DAILY RF: 0 clonidine 0.3 mg/24 hr patch weekly 0.3 mg transdermal Q7D RF: 0 amlodipine 10 mg tablet 10 mg PO BEDTIME RF: 0 hydrocodone-acetaminophen 5-325 mg tablet 1 tab PO Q6H PRN (Reason: Pain) RF: 0 omeprazole 40 mg capsule,delayed release(DR/EC) 40 mg PO BID RF: 0 minoxidil 2.5 mg tablet 2.5 mg PO BID RF: 0 clonidine HCl 0.2 mg tablet 0.2 mg PO BID RF: 0 pantoprazole 40 mg tablet,delayed release (DR/EC) 40 mg PO BID RF: 0 cyclobenzaprine 5 mg tablet 5 mg PO TID PRN (Reason: Spasms) RF: 0 lactulose 10 gram/15 mL solution 15 ml PO TID RF: 0 sevelamer carbonate [Renvela] 800 mg tablet See Rx Instructions .ROUTE .COMPLEX RF: 0 Stimulant Laxative Plus 8.6-50 mg tablet 1 tab PO BID RF: 0 RenaPlex-D 800 mcg-12.5 mg -2,000 unit tablet 1 tab PO BEDTIME RF: 0 levofloxacin 500 mg Tablet 500 mg PO Q48H Qty: 3 RF: 0 isosorbide mononitrate 60 mg tablet extended release 24 hr 120 mg PO DAILY Qty: 60 RF: 0 Discharge Orders: Discharge ED (Routine); Ordered 03/01/21 Ordered By: Jerry Stevens Referrals: Mal Junior [Primary Care Provider] - Discharge Diet: Usual diet Discharge Activity: Resume usual activity Patient Instructions: Acute Headache (ED), Periorbital Cellulitis in Adults (ED), Opioid Safety Activity Restrictions/Additional Instructions: Thank you for visiting the emergency department. You were seen and evaluated for headache. The exact cause of your symptoms is unclear though we are pleased that this improved with symptom treatment. Additionally you have cellulitis of the left eye. Please follow-up with your primary care provider. Please return to the emergency department for worsening symptoms, need for dialysis, or anyth ing else that you are concerned about and feel needs emergency department evaluation. Coding Level of Care Code ED Director [employer] for Cristi Diane
--- NOTE | 2021-03-01 14:31 | CT_ITS ---
WS: [id number] CT HEAD NONCONTRAST HISTORY: headache TECHNIQUE: Contiguous axial imaging performed through the brain in 2.5 mm imaging. Bone and soft tiss ue windows. Sagittal and coronal reformats reviewed. All CT scans at [facility] use at least one of these dose optimization techniques: automated exposure control; mA and/or kV adjustment per pa tient size (includes targeted exams where dose is matched to clinical indication); or iterative recon struction. DLP: 806.63 mGy.cm COMPARISON: None available. No acute intracranial hemorrhage, midline shift or mass effect. Very mild cerebral atrophy. Prominent perivascular space along the inferior RIGHT basal ganglia. Norm al silva-white matter differentiation. Ventricles: Normal size with no hydrocephalus. Paranasal sinuses: As visualized are clear. Mastoid air cells: Well pneumatized. Calvarium and scalp: Skull is intact with no soft tissue edema or swelling. CT/CT head wo con* [id number] IMPRESSION: 1. No acute intracranial hemorrhage or edema. 2. Very minimal cerebral atrophy. Prominent RIGHT perivascular space.
--- NOTE | 2021-03-01 14:31 | ECG_ITS ---
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 Measurements Intervals [place] Rate: 83 P: 59 PA: 199 QRS: 74 QRSD: 112 T: 79 QT: 378 QTc: 446 Interpretive Statements SINUS RHYTHM POSSIBLE LEFT ATRIAL ENLARGEMENT [-0.1mV P-WAVE IN V1/V2] MODERATE INTRAVENTRICULAR CONDUCTION DELAY [110+ ms QRS DURATION] Compared to ECG 02/25/2021 18:16:36 Prolonged QT interval no longer present Electronically Signed On 03-02-2021 8:52:24 CDT by Rosalia Dia M.D. [email or web address]
--- NOTE | 2021-03-01 14:31 | XR_ITS ---
WS: [id number] Exam: XR chest 1V portable [id number] Date/Time of Exam: 03/01/2021 2:43 PM Reason For Exam: chest pain Comparison 02/25/2021. The lungs are fully expanded. Small area of infiltrate and/or atelectasis along the left heart border . This is new since prior study. No pleural effusion seen. The heart is enlarged but unchanged in siz e. Pulmonary vascularity is within normal limits. The mediastinum and bony thorax are unremarkable XR/XR chest 1V portable [id number] IMPRESSION: 1. Small area of infiltrate and/or atelectasis along the left heart border. 2. Mild cardiac enlargement unchanged.
[2021-03-01 14:50] LABS: Basophils # 0.1 10^3/uL (0.0-0.1); Basophils % 0.8 %; Eosinophils # 0.4 10^3/uL (0.0-0.8); Eosinophils % 6.6 %; Hematocrit 28.5 % (42.0-52.0); Lymphocytes # 0.8 10^3/uL (0.8-4.8); Lymphocytes % 11.8 %; Mean Corpuscular HGB Conc 31.6 g/dL (30.0-36.0); Mean Corpuscular Hemoglobin 29.3 pg (28.0-34.0); Mean Corpuscular Volume 92.8 fl (80-94); Mean Platelet Volume 9.8 fL (7.4-10.4); Monocytes # 0.4 10^3/uL (0.2-0.9); Monocytes % 6.5 %; Neutrophils # 4.81 10^3/uL (1.8-7.7); Nucleated Red Blood Cells % 0 %; Platelet Count 222 10^3/cmm (130-400); Red Blood Count 3.07 10^6/uL (4.1-5.3); Red Cell Distribution Width 17.7 % (12.1-15.1); White Blood Count 6.5 10^3/uL (4.0-10.0)
[2021-03-01 15:12] LABS: Lactate (Lactic Acid level) 0.7 mmol/L (0.5-2.2)
[2021-03-01 15:13] LABS: Alanine Aminotransferase 6 U/L (0-41); Albumin Level 3.5 g/dL (3.5-5.2); Alkaline Phosphatase 108 IU/L (40-130); Anion Gap 20.2 (5-19); Aspartate Amino Transferase 8 U/L (0-40); Blood Urea Nitrogen 41 mg/dL (6-20); Calcium 9.3 mg/dL (8.5-10.5); Carbon Dioxide 24 mmol/L (22-29); Chloride 93 mmol/L (98-107); Globulin 3.7 g/dL (1.3-4.6); Glucose 72 mg/dL (65-115); Lipase 21 U/L (13-60); Osmolality Calculated 283 mOsm/kg (285-295); Potassium 5.2 mmol/L (3.5-5.1); Sodium 132 mmol/L (136-145); Total Bilirubin 0.5 mg/dL (0.15-1.2); Total Protein 7.2 g/dL (6.6-8.7); Troponin(5th) Baseline 56 ng/L (0-15)
[2021-03-01] MEDS: morphine 4 mg/mL SDV 1 mL IVP (15:23)
[2021-03-01] MEDS: hyDRALAzine 20 mg/mL INJ 1 mL 10 MG IVP ×2 (15:23→16:47)
[2021-03-01] MEDS: metoclopramide 5 mg/mL SDV 2 mL 10 MG IVP ×2 (15:23→17:36)
[2021-03-01] MEDS: diphenhydrAMINE 50 mg/mL SDV 1mL 25 MG IVP ×2 (15:23→17:35)
--- NOTE | 2021-03-01 15:55 | CTR_ITS ---
PROCEDURE INFORMATION: Exam: CT Chest Without Contrast; Diagnostic Exam date and time: 03/01/2021 3:55 PM Age: 40 years old Clinical indication: Abdominal pain; Generalized; Chest pressure; Patient HX: Dialysis PT C/O SOB cp and gen abd pain w malaise; Additional info: Chest and abdominal pain TECHNIQUE: Imaging protocol: Diagnostic computed tomography of the chest without contrast. Radiation optimization: All CT scans at this facility use at least one of these dose optimization techniques: automated exposure control; mA and/or kV adjustment per patient size (includes targeted exams where dose is matched to clinical indication); or iterative reconstruction. COMPARISON: CT angio chest PE protcl [id number] 02/25/2021 1:37 PM RADIATION DOSE METRICS: Total DLP (mGy-cm): 1223.17 FINDINGS: Lungs: Minor curvilinear scarring at the left mid and lower lung. Calcified granulomas noted in the right lower lobe. No consolidation. No masses. Pleural spaces: No pneumothorax. Small volume pericardial effusions. Heart: Mild cardiomegaly. Small volume pericardial effusion. Aorta: Unremarkable. No aortic aneurysm. Lymph nodes: Unremarkable. No enlarged lymph nodes. Bones/joints: No acute fracture. Soft tissues: Unremarkable. IMPRESSION: 1. Small volume pericardial effusions. 2. Mild cardiomegaly and small volume pericardial effusion. PROCEDURE INFORMATION: Exam: CT Abdomen And Pelvis Without Contrast Exam date and time: 03/01/2021 3:55 PM Age: 40 years old Clinical indication: Abdominal pain; Generalized; Chest pressure; Patient HX: Dialysis PT C/O SOB cp and gen abd pain w malaise; Additional info: Chest and abdominal pain TECHNIQUE: Imaging protocol: Computed tomography of the abdomen and pelvis without contrast. Radiation optimization: All CT scans at this facility use at least one of these dose optimization techniques: automated exposure control; mA and/or kV adjustment per patient size (includes targeted exams where dose is matched to clinical indication); or iterative reconstruction. COMPARISON: CT angio chest PE protcl [id number] 02/25/2021 1:37 PM RADIATION DOSE METRICS: Total DLP (mGy-cm): 1223.17 FINDINGS: Liver: Hepatomegaly with the right hepatic lobe measuring 23 cm in length. No mass. Gallbladder and bile ducts: Normal. No calcified stones. No ductal dilation. Pancreas: Normal. No ductal dilation. Spleen: Normal. No splenomegaly. Adrenal glands: Normal. No mass. Kidneys and ureters: Atrophic kidneys. Stomach and bowel: Unremarkable. No obstruction. No mucosal thickening. Appendix: No evidence of appendicitis. Intraperitoneal space: No free air. Moderate volume abdominal/pelvic ascites. Vasculature: No abdominal aortic aneurysm. Lymph nodes: Unremarkable. No enlarged lymph nodes. Urinary bladder: Unremarkable as visualized. Reproductive: Unremarkable as visualized. Bones/joints: No acute fracture. Grade 1 anterolisthesis of L5 on S1 with bilateral pars defects. Soft tissues: Unremarkable. CT/CT chest abd pel wo con IMPRESSION: 1. Moderate volume abdominal/pelvic ascites. 2. Hepatomegaly. Radiation Dose CTDIVOL = (mGy): DLP = 1223.17~1223.17 (mGy-cm)
[2021-03-01 16:06] VITALS: BP 170/104; PULSE 91; RESP 20; O2SAT 95
--- NOTE | 2021-03-01 16:31 | ECG_ITS ---
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 Measurements Intervals [place] Rate: 89 P: 55 WA: 180 QRS: 76 QRSD: 110 T: 85 QT: 380 QTc: 464 Interpretive Statements SINUS RHYTHM POSSIBLE LEFT ATRIAL ENLARGEMENT [-0.1mV P-WAVE IN V1/V2] Compared to ECG 03/01/2021 14:50:45 Intraventricular conduction delay no longer present Electronically Signed On 03-02-2021 8:55:48 CDT by Rosalia Dia M.D. [id number]
[2021-03-01] MEDS: sodium chloride 0.9% 500 ML 999 ML IV (16:47)
[2021-03-01] MEDS: ketorolac 30 mg/mL INJ 15 MG IVP (17:36)
[2021-03-01 17:51] LABS: Troponin 5 2HR 50.25 ng/L (0-15)
[2021-03-01 17:52] LABS: Troponin 5 2HR Delta -5.75 ABS# (0-10)
[2021-03-01 19:46] VITALS: BP 178/96; PULSE 70; RESP 18; O2SAT 100
== END 2021-03-01 19:47 | disposition home or self-care (01) ==
PROVIDERS: Emergency Provider Emergency Medicine; PCP Family Medicine
DX: R51.9 Headache, unspecified (principal); I12.0 Hypertensive chronic kidney disease with stage 5 chronic kidney disease or end stage renal disease; N18.6 End stage renal disease; L03.213 Periorbital cellulitis; I11.0 Hypertensive heart disease with heart failure; I50.9 Heart failure, unspecified; J44.9 Chronic obstructive pulmonary disease, unspecified; F41.9 Anxiety disorder, unspecified; F32.A Depression, unspecified; F17.200 Nicotine dependence, unspecified, uncomplicated
CPT/HCPCS: 70450; 71045; 71250; 74176; 80053; 83605; 83690; 84484; 85025; 93005; 96374; 96375; 96376; 99284; J0360; J1200; J1885; J2270; J2765; J2930; J7040

== ENCOUNTER → 2021-03-08 09:34 | Day surgery (SDC) | payer MEDICARE, MEDICAID, SELFPAY ==
--- NOTE | 2021-03-08 09:58 | US_ITS ---
WS: [id number] ULTRASOUND-GUIDED THERAPEUTIC PARACENTESIS Procedure, risks, and complications have been explained to the patient. Consent is obtained. Utilizing aseptic technique and 1% buffered lidocaine, a small dermatome was made through which a 5 F rench Yueh catheter was inserted. Approximately 3400 ml of clear peritoneal fluid was obtained witho ut difficulty. No complications encountered. US/US paracentesis abd w [id number] IMPRESSION: Uncomplicated paracentesis yielding 3400 ml of peritoneal fluid.
[2021-03-08 10:02] VITALS: BP 183/112; PULSE 80; RESP 18; TEMP 36.8; O2SAT 97
--- NOTE | 2021-03-08 10:37 | PC.NURSE ---
Pt to GI lab for US guided paracentesis. Dr. Peter at bedside. Approx 12 mL Lidocaine used as local to RLQ para site. Albumin 25% 50 grams to be infused as ordered. Lot [id number]. Exp September 2022. Pt tolerating well.
[2021-03-08 11:03] VITALS: BP 157/95; PULSE 74; RESP 18; O2SAT 93
== END ==
LOC: RAD 09:35 → GILAB 09:57
PROVIDERS: PCP Family Medicine; Visit Provider Surgery
DX: R18.8 Other ascites (principal)
CPT/HCPCS: 49083; 96365; P9047

== ENCOUNTER → 2021-04-04 11:02 | Day surgery (SDC) | payer MEDICARE, MEDICAID, SELFPAY ==
--- NOTE | 2021-04-04 11:18 | US_ITS ---
WS: [id number] INDICATION: Paracentesis ascites TECHNIQUE: Ultrasound 4 quadrants FINDINGS: Ultrasound abdomen 4 quadrants for paracentesis. Only a small amount of ascites visualized today. Insufficient ascites for paracentesis. US/US abdomen lmt fluid [id number] IMPRESSION: Insufficient ascites for paracentesis.
[2021-04-04 11:30] VITALS: BMI 23.7
[2021-04-04 11:33] VITALS: BP 148/87; PULSE 75; RESP 16; TEMP 36.8; O2SAT 99
== END | disposition home or self-care (01) ==
PROVIDERS: PCP Family Medicine; Visit Provider Surgery
DX: R18.8 Other ascites (principal)
CPT/HCPCS: 76705

== ENCOUNTER → 2021-05-02 10:17 | Day surgery (SDC) | payer MEDICARE, MEDICAID, SELFPAY ==
[2021-05-02 10:32] VITALS: BMI 23.1
[2021-05-02 10:41] VITALS: BP 186/112; PULSE 73; RESP 18; TEMP 36.5; O2SAT 95
--- NOTE | 2021-05-02 10:44 | US_ITS ---
WS: [id number] ULTRASOUND ABDOMEN LIMITED CLINICAL INFORMATION: ascites COMPARISON: None. FINDINGS: Mild ascites is visualized. Insufficient fluid for paracentesis at this time US/US abdomen limited [id number] IMPRESSION: Insufficient fluid for paracentesis at this time
--- NOTE | 2021-05-02 11:03 | PC.NURSE ---
Procedure aborted due to not enough fluid at this time.
== END ==
PROVIDERS: PCP Family Medicine; Visit Provider Internal Medicine Nephrology
DX: R18.8 Other ascites (principal)
CPT/HCPCS: 76705

== ENCOUNTER 2021-05-16 10:24 | Day surgery (SDC) | payer MEDICARE, MEDICAID, SELFPAY ==
[2021-05-14 12:25] VITALS: BMI 23.1
--- NOTE | 2021-05-16 10:32 | US_ITS ---
WS: [id number] INDICATION: Ascites TECHNIQUE: Ultrasound abdomen limited FINDINGS: Ultrasound of the 4 quadrants. Small amount of abdominal ascites. Insufficient fluid for pa racentesis. US/US abdomen lmt fluid [id number] IMPRESSION: Small volume abdominal ascites.
[2021-05-16 10:37] VITALS: BP 170/104; PULSE 76; RESP 20; TEMP 36.5; O2SAT 98
--- NOTE | 2021-05-16 10:49 | PC.NURSE ---
Case aborted due to lack of peritoneal fluid.
== END 2021-05-16 12:11 | disposition home or self-care (01) ==
LOC: GILAB 10:26
PROVIDERS: Radiology Neuroradiology; PCP Family Medicine; Visit Provider Surgery
DX: R18.8 Other ascites (principal)
CPT/HCPCS: 49083; 76705

== ENCOUNTER 2021-05-17 12:40 | Emergency (ER) | payer MEDICARE, MEDICAID, SELFPAY ==
[2021-05-17 12:56] VITALS: BP 202/124; PULSE 77; RESP 16; TEMP 36.6; O2SAT 97
--- NOTE | 2021-05-17 13:21 | CT_ITS ---
WS: [id number] CT ORBITS TECHNIQUE: Noncontrast CT of the orbits with coronal and sagittal reformatted images. CLINICAL INFORMATION: hit by horse COMPARISON: None. DLP: 400.[address] scans at [facility] use at least one of these dose optimization techniques: automated e xposure control; mA and/or kV adjustment per patient size (includes targeted exams where dose is matc hed to clinical indication); or iterative reconstruction. FINDINGS: Orbits are normal in appearance. Chronic appearing left to right nasal septal deviation measuring 3 t o 4 mm with a rightward directed spur. Anterior nasal tip is normal in appearance. No evidence of acu te nasal bone fracture. Normal pterygoid plates. Mild soft tissue edema overlying the right facial so ft tissues. Right orbit appears intact. Normal lamina papyracea. Inferior orbits are normal. No acute orbital fractures. Zygoma appear normal. Maxillary sinuses are well aerated. Paranasal sinuses are w ell aerated. Mucosal thickening in the partially visualized mastoid air cells. Advanced degenerative changes involving the left mandible condyle and condylar fossa. This may be posttraumatic. CT/CT orbit BI wo con* [id number] IMPRESSION: 1. No acute nasal bone fractures. Chronic appearing mild left to right nasal s eptal deviation described above. 2. Orbits are normal. 3. Paranasal sinuses are well aerated. 4. Mild mucosal thickening in the mastoid air cells. 5. Advanced degenerative changes involving the left mandible condyle in the co ndylar fossa. This may be posttraumatic.
--- NOTE | 2021-05-17 13:44 | ED_ITS ---
Documented by User: Danielle Noble PA-C 05/17/21 15:04 HPI - Eye Problem General: Chief complaint: Eye Problems Stated complaint: RIGHT EYE INJURY Time Seen by Provider: 05/17/21 13:16 Source: patient Mode of arrival: ambulatory Limitations: no limitations History of Present Illness: HPI Narrative: 40-year-old male with a history of COPD, end-stage renal disease, and anxiety and depression, presents to the ER today for right eye pain and face pain after being hit by a horse. Patient reports he was trying to get the horses back in the pen about 2 hours ago when one of the horses spun their head around and hit patient in the eye. Patient reports blurry vision, headache and some dizziness. Patient went to dialysis and they sent patient to the ER given the eye injury. Patient reports pain opening the eye, swelling in the face. MD chief complaint: eye pain, eye injury and vision change Onset (ago): hour(s) Location: right eye Eye Symptoms: blurry vision Place: home Mechanism: direct trauma Severity: moderate Severity scale (1-10): 6 If Pain, Quality: sharp and aching Context: trauma Associated symptoms: Reports headache(s) Treatments Prior to Arrival: none Review of Systems General: Reports: 10 or more systems reviewed and unremarkable except in HPI and below Neuro: Reports: headache(s) PFSH ED PFSH: Medical History Acute diastolic CHF (congestive heart failure) Anasarca Anemia Anxiety with depression Arteriovenous fistula for hemodialysis in place, secondary Congestive heart failure COPD (chronic obstructive pulmonary disease) Current smoker Degenerative disc disease, lumbar End-stage renal disease on hemodialysis Gross hematuria Hemoptysis Hepatomegaly Hyperkalemia Hypertension Hypertensive emergency PHT (pulmonary hypertension) Surgical History H/O hand surgery Amputation right 2&3 fingers 2017 History of adenoidectomy Family History Father No problems noted. Other Hypertension Social History Smoking and tobacco status: current every day smoker Alcohol intake: never Marital status: Number of children: 3 Current occupational status: disabled History of recent travel: No Physical Exam Const: COMMON NORMALS: average body habitus, patient oriented x3 and alert GENERAL APPEARANCE: cooperative ORIENTATION/CONSCIOUSNESS: Yes oriented to time HENMT: COMMON NORMALS: normocephalic, atraumatic, external ears normal and Normal external nose present HEAD & SCALP: normocephalic and atraumatic NOSE: Normal external nose present EXTERNAL EAR: Yes external ears normal Eye: CONJUNCTIVA: Yes conjunctival abnormal (Right conjunctiva is noted to be swollen and blistered.) positive right OTHER: Patient has tenderness to the inferior right orbit Neck/C-Spine: COMMON NORMALS: full ROM and no lymphadenopathy Resp: COMMON NORMALS: normal respiratory effort EFFORT & INSPECTION: Yes able to speak in complete sentences Cardio: COMMON NORMALS: regular rate and regular rhythm RATE: regular rate RHYTHM: regular rhythm Neuro: COMMON NORMALS: patient oriented x3 SENSORIUM/ORIENTATION: Yes alert and Yes oriented to time Psych: COMMON NORMALS: mental status grossly normal, Normal thought process present and cooperative THOUGHT PROCESS: Normal thought process present Skin: COMMON NORMALS: no rashes or lesions noted and no wounds GENERAL SKIN EXAM: no rashes or lesions noted Course ED course: Patient presents to the ER today after being hit in the head by a horse. Patient reports the horse spun his head around and hit patient just below the right eye and in the right eye. Patient reports blurry vision, swelling, pain to the right eye, and a headache. Patient was on his way to dialysis and dialysis sent him to the ER to be examined. We will get CT of the orbit given injury. Patient does have abnormalities in the conjunctiva noted on exam. Vital Signs: Vital signs: Vital Signs Temperature 97.8 F 05/17/21 12:56 Pulse Rate 70 05/17/21 13:54 Respiratory Rate 18 05/17/21 13:54 Blood Pressure 188/107 05/17/21 13:54 Pulse Oximetry 98 05/17/21 13:54 MDM - Eye Problem MDM Narrative: Medical decision making narrative: 40-year-old male presents to the ER today for right eye pain that started after a horse head butted him. Patient reported facial pain and swelling and redness of the eye. This occurred about 2 hours ago. On exam patient is noted to have swelling of the conjunctive a, the iris and cornea appear intact. CT of the orbit appears normal at this time. Discussed findings with patient. We will treat with gentamicin and refer to ophthalmology. Patient will follow-up first of next week. For any new or worsening symptoms return to the ER. Patient verbalized understanding and is in agreement with the treatment plan. Imaging Data^: Other CT: Radiologist's impression: [facility] [address] [address] CT Scan Report Signed Patient: Mal Gibbs V Unit #: [id number] : 1980 Age/Sex: 40 / M ADM Date: 05/17/21 Loc: ER Room/Bed: Attending Dr: Ordering Provider/Ordering MD: Danielle Noble Date of Service: 05/17/21 Procedure(s): CT orbit BI wo con* [id number] Accession Number(s): [id number] Report Number: [id number] WS: [id number] CT ORBITS TECHNIQUE: Noncontrast CT of the orbits with coronal and sagittal reformatted images. CLINICAL INFORMATION: hit by horse COMPARISON: None. DLP: 400.[address] scans at [facility] use at least one of these dose optimization techniques: automated exposure control; mA and/or kV adjustment per patient size (includes targeted exams where dose is matched to clinical indication); or iterative reconstruction. FINDINGS: Orbits are normal in appearance. Chronic appearing left to right nasal septal deviation measuring 3 to 4 mm with a rightward directed spur. Anterior nasal tip is normal in appearance. No evidence of acute nasal bone fracture. Normal pterygoid plates. Mild soft tissue edema overlying the right facial soft tissues. Right orbit appears intact. Normal lamina papyracea. Inferior orbits are normal. No acute orbital fractures. Zygoma appear normal. Maxillary sinuses are well aerated. Paranasal sinuses are well aerated. Mucosal thickening in the partially visualized mastoid air cells. Advanced degenerative changes involving the left mandible condyle and condylar fossa. This may be posttraumatic. CT/CT orbit BI wo con* [id number] IMPRESSION: 1. No acute nasal bone fractures. Chronic appearing mild left to right nasal septal deviation described above. 2. Orbits are normal. 3. Paranasal sinuses are well aerated. 4. Mild mucosal thickening in the mastoid air cells. 5. Advanced degenerative changes involving the left mandible condyle in the condylar fossa. This may be posttraumatic. Dictated By: Saurabh Leslie MD Signed By: Saurabh Leslie MD Signed Date/Time: 05/17/21 1444 DD/ 1438 Critical Care Time Critical Care Time: Critical Care Time: No Discharge Plan Discharge Patient Disposition: Home Clinical Impression: Right eye trauma Qualifiers: Encounter type: initial encounter Qualified Code(s): S05.91XA - Unspecified injury of right eye and orbit, initial encounter Condition: Stable Prescriptions: New gentamicin 0.3 % drops 1 drp ophthalmic (eye) Q6H Qty: 5 RF: 0 No Action carvedilol 25 mg tablet 50 mg PO BID RF: 0 Incruse Ellipta 62.5 mcg/actuation blister with device 1 inh INHALATION DAILY RF: 0 clonidine 0.3 mg/24 hr patch weekly 0.3 mg transdermal Q7D RF: 0 amlodipine 10 mg tablet 10 mg PO DAILY RF: 0 minoxidil 2.5 mg tablet 5 mg PO BID RF: 0 pantoprazole 40 mg tablet,delayed release (DR/EC) 40 mg PO BID RF: 0 sevelamer carbonate [Renvela] 800 mg tablet See Rx Instructions .ROUTE .COMPLEX RF: 0 RenaPlex-D 800 mcg-12.5 mg -2,000 unit tablet 1 tab PO BEDTIME RF: 0 isosorbide mononitrate 60 mg tablet extended release 24 hr 120 mg PO DAILY Qty: 60 RF: 0 Discharge Orders: Discharge ED (Routine); Ordered 05/17/21 Ordered By: Danielle Noble Referrals: Mal Junior [Primary Care Provider] - Discharge Diet: Usual diet Discharge Activity: Resume usual activity Patient Instructions: Opioid Safety Activity Restrictions/Additional Instructions: Use eyedrops as prescribed. Follow-up with testing projects administrator next week. Apply ice to reduce swelling and pain. Return to the ER with new or worsening symptoms. Coding Level of Care Code ED Meter Tester Polyphase for Adriannag Fwd Exam Comprehensive Documented by User: Pato Rivera DO 05/21/21 06:55 HPI - Eye Problem General: Chief complaint: Eye Problems Stated complaint: RIGHT EYE INJURY Time Seen by Provider: 05/17/21 13:16 [facility] ED PFSH: Medical History Acute diastolic CHF (congestive heart failure) Anasarca Anemia Anxiety with depression Arteriovenous fistula for hemodialysis in place, secondary Congestive heart failure COPD (chronic obstructive pulmonary disease) Current smoker Degenerative disc disease, lumbar End-stage renal disease on hemodialysis Gross hematuria Hemoptysis Hepatomegaly Hyperkalemia Hypertension Hypertensive emergency PHT (pulmonary hypertension) Surgical History H/O hand surgery Amputation right 2&3 fingers 2017 History of adenoidectomy Family History Father No problems noted. Other Hypertension Social History Smoking and tobacco status: current every day smoker Alcohol intake: never Marital status: Number of children: 3 Current occupational status: disabled History of recent travel: No Course Vital Signs: Vital signs: Vital Signs Temperature 97.8 F 05/17/21 12:56 Pulse Rate 70 05/17/21 13:54 Respiratory Rate 18 05/17/21 13:54 Blood Pressure 188/107 05/17/21 13:54 Pulse Oximetry 98 05/17/21 13:54 MDM - Eye Problem MDM Narrative: Medical decision making narrative: Chart reviewed and patient discussed with midlevel. Agree with assessment and plan. Discharge Plan Discharge Patient Disposition: Home Clinical Impression: Right eye trauma Qualifiers: Encounter type: initial encounter Qualified Code(s): S05.91XA - Unspecified injury of right eye and orbit, initial encounter Condition: Stable Prescriptions: New gentamicin 0.3 % drops 1 drp ophthalmic (eye) Q6H Qty: 5 RF: 0 No Action carvedilol 25 mg tablet 50 mg PO BID RF: 0 Incruse Ellipta 62.5 mcg/actuation blister with device 1 inh INHALATION DAILY RF: 0 clonidine 0.3 mg/24 hr patch weekly 0.3 mg transdermal Q7D RF: 0 amlodipine 10 mg tablet 10 mg PO DAILY RF: 0 minoxidil 2.5 mg tablet 5 mg PO BID RF: 0 pantoprazole 40 mg tablet,delayed release (DR/EC) 40 mg PO BID RF: 0 sevelamer carbonate [Renvela] 800 mg tablet See Rx Instructions .ROUTE .COMPLEX RF: 0 RenaPlex-D 800 mcg-12.5 mg -2,000 unit tablet 1 tab PO BEDTIME RF: 0 isosorbide mononitrate 60 mg tablet extended release 24 hr 120 mg PO DAILY Qty: 60 RF: 0 Discharge Orders: Discharge ED (Routine); Ordered 05/17/21 Ordered By: Danielle Noble Referrals: Mal Junior [Primary Care Provider] - Discharge Diet: Usual diet Discharge Activity: Resume usual activity Patient Instructions: Opioid Safety Activity Restrictions/Additional Instructions: Use eyedrops as prescribed. Follow-up with testing projects administrator next week. Apply ice to reduce swelling and pain. Return to the ER with new or worsening symptoms. Coding Level of Care Code ED Meter Tester Polyphase for Cristi Fwchloé Exam Comprehensive
[2021-05-17 13:54] VITALS: BP 188/107; PULSE 70; RESP 18; O2SAT 98
--- NOTE | 2021-05-20 10:33 | DCPLANNER ---
Addendum entered by Sharmin Scott 06/14/21 08:56: manager heart failure called the office of Dr. Bingham to confirm if an appointment had been scheduled for patient. manager heart failure was told that clinic called patient and left a message for patient to call clinic to schedule an appointment. Clinic is waiting on patient. Original Note: manager heart failure had message to schedule a follow up appointment for patient with ophthamology for right eye trauma. manager heart failure attempted to call patient at phone number [phone], unable to speak with patient at this time, a voicemail was left for patient. manager heart failure faxed patients information to the office of Dr. Bingham for review. Clinic will call patient with appointment information.
== END 2021-05-17 15:24 | disposition home or self-care (01) ==
PROVIDERS: Emergency Provider Physician Assistant; PCP Family Medicine
DX: S05.91XA Unspecified injury of right eye and orbit, initial encounter (principal); W55.12XA Struck by horse, initial encounter; I13.2 Hypertensive heart and chronic kidney disease with heart failure and with stage 5 chronic kidney disease, or end stage renal disease; N18.6 End stage renal disease; I50.31 Acute diastolic (congestive) heart failure; J44.9 Chronic obstructive pulmonary disease, unspecified; F17.210 Nicotine dependence, cigarettes, uncomplicated
CPT/HCPCS: 70480; 99282

== ENCOUNTER 2021-05-26 13:15 | Inpatient (IN) | payer MEDICARE, MEDICAID, SELFPAY ==
[2021-05-26] VITALS (11 sets, daily range): BP systolic 201–267; BP diastolic 118–152; PULSE 76–87; RESP 16–24; TEMP 36.6; O2SAT 94–98; BMI 23.1
--- NOTE | 2021-05-26 16:04 | CTR_ITS ---
PROCEDURE INFORMATION: Exam: CT Abdomen And Pelvis With Contrast Exam date and time: 05/26/2021 4:04 PM Age: 40 years old Clinical indication: Abdominal pain; Generalized; Additional info: Eval for infection TECHNIQUE: Imaging protocol: Computed tomography of the abdomen and pelvis with contrast. Radiation optimization: All CT scans at this facility use at least one of these dose optimization techniques: automated exposure control; mA and/or kV adjustment per patient size (includes targeted exams where dose is matched to clinical indication); or iterative reconstruction. Contrast material: OMNI 300; Contrast volume: 95 ml; Contrast route: INTRAVENOUS (IV); COMPARISON: 1. CT chest abd pel wo con 03/01/2021 4:[address] abdomen pelvis w con* [id number] 10/01/2020 10:12 AM RADIATION DOSE METRICS: Total DLP (mGy-cm): 1602.01 FINDINGS: Lungs: Lung bases are clear. Pleural spaces: Thank you there is a tiny left pleural effusion smaller than on 03/01/2021. Heart: The heart is moderately enlarged. Liver: There is a diffuse decrease in hepatic parenchymal density, consistent with mild fatty infiltration. Liver demonstrates heterogeneous enhancement pattern similar to 10/01/2020. This could represent hepatic fibrosis or cirrhosis or other infiltrating hepatic disease. There is moderate enlargement of the liver. Liver measures 25 cm in height. Gallbladder and bile ducts: Normal. No calcified stones. No ductal dilation. Pancreas: The pancreas is normal. Spleen: There is mild nonspecific splenomegaly. The spleen measures approximately 16 cm in length. Adrenal glands: The adrenal glands are normal. Kidneys and ureters: Kidneys are atrophic, not significantly changed. There is no evidence of hydronephrosis. There is no evidence of renal or ureteral calcifications. Stomach and bowel: There is no evidence of colitis/diverticulitis. Appendix: Not identified Intraperitoneal space: There is a large amount of free intraperitoneal fluid present. Ascites is more than on 03/01/2021. Vasculature: The aorta demonstrates mild atherosclerotic calcification. There is no evidence of an abdominal aortic aneurysm. Lymph nodes: There are prominent inguinal lymph nodes not significantly changed. There is also prominent periaortic adenopathy measuring up to 12 x 26 mm not significantly changed. Urinary bladder: Unremarkable as visualized. Reproductive: Unremarkable as visualized. Bones/joints: Unremarkable. No acute fracture. Soft tissues: Unremarkable. CT/CT abdomen pelvis w con* [id number] IMPRESSION: 1. Severe ascites 2. Abnormal enhancement pattern of the liver suggesting underlying liver disease. 3. Splenomegaly 4. Atrophic kidneys
--- NOTE | 2021-05-26 16:20 | ED_ITS ---
Documented by User: Ratna Vázquez MD 05/30/21 08:04 HPI - General Adult General: Chief complaint: ER Hold Stated complaint: body aches,sob Time Seen by Provider: 05/26/21 15:39 History of Present Illness: HPI narrative: Patient is a 40-year-old male with a history of diastolic heart failure, anasarca, COPD, ESRD on dialysis Thursday/Thursday/Thursday emergency room with complaints of 1 day of generalized abdominal pain, nausea, fever/chills, and sore throat. Patient denies any diarrhea. Patient tells me that he is unable to hold anything down. Patient has not had any prior paracentesis given the fact that he has never had large-volume ascites. Patient denies any melena/hematochezia or hematemesis. Reports shortness of breath and non- productive cough. Onset: 1 day ago Duration:1 day Location:home Severity:moderate Associated symptoms: Reports dyspnea, malaise, nausea and vomiting; Deny chest pain, rash or palpitations Review of Systems 2 Const: Reports: fever(s), chills, fatigue and malaise Eyes: Denies: change in vision ENMT: Denies: mouth pain Card: Denies: chest pain or palpitations Resp: Reports: dyspnea and non-productive cough GI: Reports: abdominal pain, nausea, vomiting and other (+abdominal distension); Denies: diarrhea : Denies: dysuria Musc: Denies: extremity pain Skin/Breast: Denies: rash or new lesions Neuro: Denies: weakness in extremities Psych: Reports: other (Normal mood) Jefferson/Lymph: Denies: easy bruising [facility] ED PFSH: Medical History (Updated 05/27/21 @ 13:05 by Emanuel Nation MD) Acute diastolic CHF (congestive heart failure) Anasarca Anemia Anxiety with depression Arteriovenous fistula for hemodialysis in place, secondary Congestive heart failure COPD (chronic obstructive pulmonary disease) Current smoker Degenerative disc disease, lumbar End-stage renal disease on hemodialysis Gross hematuria Hematuria Hemoptysis Hepatomegaly Hyperkalemia Hypertension Hypertensive emergency PHT (pulmonary hypertension) Surgical History H/O hand surgery Amputation right 2&3 fingers 2017 History of adenoidectomy Family History Father No problems noted. Other Hypertension Social History Smoking and tobacco status: current every day smoker Alcohol intake: never Marital status: Number of children: 3 Current occupational status: disabled History of recent travel: No Physical Exam Const: COMMON NORMALS: alert HENMT: COMMON NORMALS: atraumatic HEAD & SCALP: atraumatic MOUTH: moist mucous membranes not abnormal Eye: COMMON NORMALS: EOMs intact bilaterally and conjunctivae normal CONJUNCTIVA: Yes conjunctivae normal Neck/C-Spine: COMMON NORMALS: full ROM and supple Resp: COMMON NORMALS: normal respiratory effort and clear to auscultation bilaterally AUSCULTATION: clear to auscultation bilaterally Cardio: COMMON NORMALS: regular rate RATE: regular rate GI: OTHER: +Diffuse abdominal distention, moderate tenderness to palpation diffusely. NO guarding rebound, guarding, rigidity. No CVA tenderness to percussion. Neg Hemphill/Neg McBurney's point tenderness, no suprabupic tenderness to palpation. Extremity: COMMON NORMALS: full ROM Neuro: SENSORIUM/ORIENTATION: Yes alert MOTOR EXAM: No Abnormal motor strength present and Other motor observations present (no focal motor deficits) Psych: COMMON NORMALS: speech normal SPEECH: Yes normal speech MOOD & AFFECT: Yes euthymic mood Procedures Paracentesis Amount of fluid obtained (mL): 2 Fluid: clear Post Procedure Exam: awake, alert, normal BP, normal HR and normal SpO2 Patient Tolerated Procedure: well Complications: none Course Vital Signs: Vital signs: Vital Signs Temperature 98.6 F 05/29/21 23:45 Pulse Rate 80 05/30/21 06:30 Respiratory Rate 13 05/30/21 06:30 Blood Pressure 141/72 05/30/21 06:30 Pulse Oximetry 94 05/30/21 06:30 MDM - General Adult MDM Narrative Medical decision making narrative: 40-year-old male with a history of CHF, prior anasarca, ESRD on dialysis M/W/Fpresenting to the emergency room for evaluation of dyspnea, cough, abdominal distention and generalized abdominal pain x1 day. On exam, patient is afebrile with focal tenderness to palpation diffusely in the abdomen. No guarding or rebound tenderness. Work-up: CBC, CMP, lipase, CT abdomen pelvis, UA lactic acid, blood culture Intervention: IVF, morphine CT abd+pelvis shows severe ascites. I looked with the ultrasound and did not see any targettable pockets for paracentesis. Patient has bowel that reach the surface of the abdomen. WBC of 3.3, afebrile but patient exhibit significant pain, will treat as SBP though most likely tense sascites. A diagnostic paracentesis was performed and sample was sent for culture and WBC analysis. (Please refer to the procedure note) S/p zosyn for coverage of SBP. Patient c ontinues to be hemodynamically stable. Will need therapeutic paracentesis. Patient is also covid positive today. Continues to be satting well on RA. Disposition: admission Lab Data Result diagrams: 05/30/21 03:07 05/30/21 03:07 Labs: Lab Results 05/26/21 05/26/21 05/26/21 17:15 17:35 17:35 WBC 3.3 10^3/uL L 10^3/uL (4.0-10.0) RBC 3.68 10^6/uL L 10^6/uL (4.1-5.3) Hgb 10.0 g/dL L g/dL (11.7-16.6) Hct 32.1 % L % (42.0-52.0) MCV 87.2 fl fl (80-94) MCH 27.2 pg L pg (28.0-34.0) MCHC 31.2 g/dL g/dL (30.0-36.0) RDW 18.7 % H % (12.1-15.1) Plt Count 107 10^3/cmm L 10^3/cmm (130-400) MPV 10.3 fL fL (7.4-10.4) Neut % (Auto) 73.8 % % Lymph % (Auto) 16.5 % % Ritchie % (Auto) 6.1 % % Eos % (Auto) 2.7 % % Baso % (Auto) 0.6 % % Neut # (Auto) 2.42 10^3/uL 10^3/uL (1.8-7.7) Lymph # (Auto) 0.5 10^3/uL L 10^3/uL (0.8-4.8) Ritchie # (Auto) 0.2 10^3/uL 10^3/uL (0.2-0.9) Eos # (Auto) 0.1 10^3/uL 10^3/uL (0.0-0.8) Baso # (Auto) 0.0 10^3/uL 10^3/uL (0.0-0.1) Nucleated RBC % (auto) 0 % % Nucleated RBCs # 0.0 /100WBC /100WBC PT 15.00 SECONDS H SECONDS (12.1-14.9) INR 1.15 (0.8-1.2) APTT 40.2 SECONDS H SECONDS (23.9-36.7) Sodium Potassium Chloride Carbon Dioxide Anion Gap BUN Creatinine GFR Calculation Glucose POC Glucose Calculated Osmolality Lactate Calcium Total Bilirubin AST ALT Alkaline Phosphatase Total Protein Albumin Globulin Lipase Coronavirus 229E (PCR) Not detected (NOT DETECT) SARS-CoV-2 (PCR) Detected A (NOT DETECT) 05/26/21 05/26/21 05/27/21 17:35 17:35 00:39 WBC RBC Hgb Hct MCV MCH MCHC RDW Plt Count MPV Neut % (Auto) Lymph % (Auto) Ritchie % (Auto) Eos % (Auto) Baso % (Auto) Neut # (Auto) Lymph # (Auto) Ritchie # (Auto) Eos # (Auto) Baso # (Auto) Nucleated RBC % (auto) Nucleated RBCs # PT INR APTT Sodium 129 mmol/L L mmol/L (136-145) Potassium 6.1 mmol/L H mmol/L (3.5-5.1) Chloride 91 mmol/L L mmol/L (98-107) Carbon Dioxide 22 mmol/L mmol/L (22-29) Anion Gap 22.1 H (5-19) BUN 32 mg/dL H mg/dL (6-20) Creatinine 8.8 mg/dL H* mg/dL (0.7-1.2) GFR Calculation 6.8 mL/min L mL/min (90-130) Glucose 77 mg/dL mg/dL (65-115) POC Glucose 28 mg/dL L* mg/dL (70-110) Calculated Osmolality 274 mOsm/kg L mOsm/kg (285-295) Lactate 0.8 mmol/L mmol/L (0.5-2.2) Calcium 8.2 mg/dL L mg/dL (8.5-10.5) Total Bilirubin 0.4 mg/dL mg/dL (0.15-1.2) AST 32 U/L U/L (0-40) ALT 31 U/L U/L (0-41) Alkaline Phosphatase 149 IU/L H IU/L (40-130) Total Protein 7.0 g/dL g/dL (6.6-8.7) Albumin 3.5 g/dL g/dL (3.5-5.2) Globulin 3.5 g/dL g/dL (1.3-4.6) Lipase 31 U/L U/L (13-60) Coronavirus 229E (PCR) SARS-CoV-2 (PCR) 05/27/21 05/27/21 05/27/21 00:42 00:43 00:45 WBC RBC Hgb Hct MCV MCH MCHC RDW Plt Count MPV Neut % (Auto) Lymph % (Auto) Ritchie % (Auto) Eos % (Auto) Baso % (Auto) Neut # (Auto) Lymph # (Auto) Ritchie # (Auto) Eos # (Auto) Baso # (Auto) Nucleated RBC % (auto) Nucleated RBCs # PT INR APTT Sodium Potassium Chloride Carbon Dioxide Anion Gap BUN Creatinine GFR Calculation Glucose POC Glucose 301 mg/dL H mg/dL 207 mg/dL H mg/dL 118 mg/dL H mg/dL (70-110) (70-110) (70-110) Calculated Osmolality Lactate Calcium Total Bilirubin AST ALT Alkaline Phosphatase Total Protein Albumin Globulin Lipase Coronavirus 229E (PCR) SARS-CoV-2 (PCR) 05/27/21 05/27/21 05/27/21 01:05 01:38 02:06 WBC RBC Hgb Hct MCV MCH MCHC RDW Plt Count MPV Neut % (Auto) Lymph % (Auto) Ritchie % (Auto) Eos % (Auto) Baso % (Auto) Neut # (Auto) Lymph # (Auto) Ritchie # (Auto) Eos # (Auto) Baso # (Auto) Nucleated RBC % (auto) Nucleated RBCs # PT INR APTT Sodium Potassium Chloride Carbon Dioxide Anion Gap BUN Creatinine GFR Calculation Glucose POC Glucose 80 mg/dL mg/dL 49 mg/dL L mg/dL 79 mg/dL mg/dL (70-110) (70-110) (70-110) Calculated Osmolality Lactate Calcium Total Bilirubin AST ALT Alkaline Phosphatase Total Protein Albumin Globulin Lipase Coronavirus 229E (PCR) SARS-CoV-2 (PCR) 05/27/21 05/27/21 02:46 02:49 WBC RBC Hgb Hct MCV MCH MCHC RDW Plt Count MPV Neut % (Auto) Lymph % (Auto) Ritchie % (Auto) Eos % (Auto) Baso % (Auto) Neut # (Auto) Lymph # (Auto) Ritchie # (Auto) Eos # (Auto) Baso # (Auto) Nucleated RBC % (auto) Nucleated RBCs # PT INR APTT Sodium Potassium Chloride Carbon Dioxide Anion Gap BUN Creatinine GFR Calculation Glucose POC Glucose 58 mg/dL L mg/dL 55 mg/dL L mg/dL (70-110) (70-110) Calculated Osmolality Lactate Calcium Total Bilirubin AST ALT Alkaline Phosphatase Total Protein Albumin Globulin Lipase Coronavirus 229E (PCR) SARS-CoV-2 (PCR) Imaging Data^ Other Imaging: Radiologist's impression: [address] [place] [id number] ReportSigned Patient: Mal Gibbs #: [id number]: 1980Acct#:[id number]/Sex: 40 / MADM Date: 05/26/21Loc: [facility]/Bed:Attending Dr: Ordering Provider/Ordering MD: Ratna Vázquez MD Date of Service: 05/26/21 Procedure(s): XR chest 1V portable [id number] Accession Number(s): [id number] Report Number: [id number] PROCEDURE INFORMATION: Exam: XR Chest Exam date and time: 05/26/2021 4:25 PM Age: 40 years old Clinical indication: Dyspnea TECHNIQUE: Imaging protocol: XR of the chest. Views: 1 view. COMPARISON: 1. CT chest abd pel wo con 03/01/2021 4:22 PM 2. CR XR chest 1V portable [id number] 03/01/2021 2:40 PM FINDINGS: Lungs: There is calcified granuloma in the right mid lung. No focal infiltrate is identified. Pleural spaces: The pleural effusion is cleared compared with 03/01/2021. Heart/Mediastinum: The heart is mildly enlarged. Bones/joints: Unremarkable. XR/XR chest 1V portable [id number] IMPRESSION: Mild cardiomegaly. No acute infiltrate. Dictated By:Indira Tavaresigned By:Alejo Tavares Date/Time:05/26/21 1710DD/ [address] [facility] [place], [place] [address]NQ Scan ReportSigned Patient: Mal Gibbs #: [id number]: [id number]#:[id number]/Sex: 40 / MADM Date: 05/26/21Loc: [facility]/B ed:Attending Dr: Ordering Provider/Ordering MD: Ratna Vázquez MD Date of Service: 05/26/21 Procedure(s): CT abdomen pelvis w con* [id number] Accession Number(s): [id number] Report Number: [id number] PROCEDURE INFORMATION: Exam: CT Abdomen And Pelvis With Contrast Exam date and time: 05/26/2021 4:04 PM Age: 40 years old Clinical indication: Abdominal pain; Generalized; Additional info: Eval for infection TECHNIQUE: Imaging protocol: Computed tomography of the abdomen and pelvis with contrast. Radiation optimization: All CT scans at this facility use at least one of these dose optimization techniques: automated exposure control; mA and/or kV adjustment per patient size (includes targeted exams where dose is matched to clinical indication); or iterative reconstruction. Contrast material: OMNI 300; Contrast volume: 95 ml; Contrast route: INTRAVENOUS (IV); COMPARISON: 1. CT chest abd pel wo con 03/01/2021 4:[address] abdomen pelvis w con* [id number] 10/01/2020 10:12 AM RADIATION DOSE METRICS: Total DLP (mGy-cm): 1602.01 FINDINGS: Lungs: Lung bases are clear. Pleural spaces: Thank you there is a tiny left pleural effusion smaller than on 03/01/2021. Heart: The heart is moderately enlarged. Liver: There is a diffuse decrease in hepatic parenchymal density, consistent with mild fatty infiltration. Liver demonstrates heterogeneous enhancement pattern similar to 10/01/2020. This could represent hepatic fibrosis or cirrhosis or other infiltrating hepatic disease. There is moderate enlargement of the liver. Liver measures 25 cm in height. Gallbladder and bile ducts: Normal. No calcified stones. No ductal dilation. Pancreas: The pancreas is normal. Spleen: There is mild nonspecific splenomegaly. The spleen measures approximately 16 cm in length. Adrenal glands: The adrenal glands are normal. Kidneys and ureters: Kidneys are atrophic, not significantly changed. There is no evidence of hydronephrosis. There is no evidence of renal or ureteral calcifications. Stomach and bowel: There is no evidence of colitis/diverticulitis. Appendix: Not identified Intraperitoneal space: There is a large amount of free intraperitoneal fluid present. Ascites is more than on 03/01/2021. Vasculature: The aorta demonstrates mild atherosclerotic calcification. There is no evidence of an abdominal aortic aneurysm. Lymph nodes: There are prominent inguinal lymph nodes not significantly changed. There is also prominent periaortic adenopathy measuring up to 12 x 26 mm not significantly changed. Urinary bladder: Unremarkable as visualized. Reproductive: Unremarkable as visualized. Bones/joints: Unremarkable. No acute fracture. Soft tissues: Unremarkable. CT/CT abdomen pelvis w con* [id number] IMPRESSION: 1. Severe ascites 2. Abnormal enhancement pattern of the liver suggesting underlying liver disease. 3. Splenomegaly 4. Atrophic kidneys Dictated By:Indira Tavaresigned By:Alejo Tavares Date/Time:05/26/21 1840DD/ 1604 Discharge Plan Discharge Patient Disposition: Admitted As Inpatient Admit Provider: Carroll Hercules Clinical Impression: Generalized abdominal pain, Nausea & vomiting, Abdominal distension, Abdominal ascites, COVID Condition: Stable Coding Level of Care Code ED Motion Study Analyst for Chg Fwd Exam Comprehensive Documented by User: Pato Rivera DO 05/27/21 08:46 HPI - General Adult General: Chief complaint: ER Hold Stated complaint: body aches,sob Time Seen by Provider: 05/26/21 15:39 PFSH ED PFSH: Medical History (Updated 05/27/21 @ 13:05 by Emanuel Nation MD) Acute diastolic CHF (congestive heart failure) Anasarca Anemia Anxiety with depression Arteriovenous fistula for hemodialysis in place, secondary Congestive heart failure COPD (chronic obstructive pulmonary disease) Current smoker Degenerative disc disease, lumbar End-stage renal disease on hemodialysis Gross hematuria Hematuria Hemoptysis Hepatomegaly Hyperkalemia Hypertension Hypertensive emergency PHT (pulmonary hypertension) Surgical History H/O hand surgery Amputation right 2&3 fingers 2017 History of adenoidectomy Family History Father No problems noted. Other Hypertension Social History Smoking and tobacco status: current every day smoker Alcohol intake: never Marital status: Number of children: 3 Current occupational status: disabled History of recent travel: No Course Vital Signs: Vital signs: Vital Signs Temperature 98.6 F 05/29/21 23:45 Pulse Rate 80 05/30/21 06:30 Respiratory Rate 13 05/30/21 06:30 Blood Pressure 141/72 05/30/21 06:30 Pulse Oximetry 94 05/30/21 06:30 MDM - General Adult MDM Narrative Medical decision making narrative: Patient still present emergency room on ER hold. Nephrology's been consulted they are planning to go ahead and dialyze him in the department. Dr. Vázquze and Dr. Leigh attempted paracentesis and evidently were not able to get any fluid out. Ultrasound has been ordered and I discussed with Dr. Peter to do paracentesis here in the department. Lab Data Result diagrams: 05/30/21 03:07 05/30/21 03:07 Labs: Lab Results 05/26/21 05/26/21 05/26/21 17:15 17:35 17:35 WBC 3.3 10^3/uL L 10^3/uL (4.0-10.0) RBC 3.68 10^6/uL L 10^6/uL (4.1-5.3) Hgb 10.0 g/dL L g/dL (11.7-16.6) Hct 32.1 % L % (42.0-52.0) MCV 87.2 fl fl (80-94) MCH 27.2 pg L pg (28.0-34.0) MCHC 31.2 g/dL g/dL (30.0-36.0) RDW 18.7 % H % (12.1-15.1) Plt Count 107 10^3/cmm L 10^3/cmm (130-400) MPV 10.3 fL fL (7.4-10.4) Neut % (Auto) 73.8 % % Lymph % (Auto) 16.5 % % Ritchie % (Auto) 6.1 % % Eos % (Auto) 2.7 % % Baso % (Auto) 0.6 % % Neut # (Auto) 2.42 10^3/uL 10^3/uL (1.8-7.7) Lymph # (Auto) 0.5 10^3/uL L 10^3/uL (0.8-4.8) Ritchie # (Auto) 0.2 10^3/uL 10^3/uL (0.2-0.9) Eos # (Auto) 0.1 10^3/uL 10^3/uL (0.0-0.8) Baso # (Auto) 0.0 10^3/uL 10^3/uL (0.0-0.1) Nucleated RBC % (auto) 0 % % Nucleated RBCs # 0.0 /100WBC /100WBC PT 15.00 SECONDS H SECONDS (12.1-14.9) INR 1.15 (0.8-1.2) APTT 40.2 SECONDS H SECONDS (23.9-36.7) Sodium Potassium Chloride Carbon Dioxide Anion Gap BUN Creatinine GFR Calculation Glucose POC Glucose Calculated Osmolality Lactate Calcium Total Bilirubin AST ALT Alkaline Phosphatase Total Protein Albumin Globulin Lipase Coronavirus 229E (PCR) Not detected (NOT DETECT) SARS-CoV-2 (PCR) Detected A (NOT DETECT) 05/26/21 05/26/21 05/27/21 17:35 17:35 00:39 WBC RBC Hgb Hct MCV MCH MCHC RDW Plt Count MPV Neut % (Auto) Lymph % (Auto) Ritchie % (Auto) Eos % (Auto) Baso % (Auto) Neut # (Auto) Lymph # (Auto) Ritchie # (Auto) Eos # (Auto) Baso # (Auto) Nucleated RBC % (auto) Nucleated RBCs # PT INR APTT Sodium 129 mmol/L L mmol/L (136-145) Potassium 6.1 mmol/L H mmol/L (3.5-5.1) Chloride 91 mmol/L L mmol/L (98-107) Carbon Dioxide 22 mmol/L mmol/L (22-29) Anion Gap 22.1 H (5-19) BUN 32 mg/dL H mg/dL (6-20) Creatinine 8.8 mg/dL H* mg/dL (0.7-1.2) GFR Calculation 6.8 mL/min L mL/min (90-130) Glucose 77 mg/dL mg/dL (65-115) POC Glucose 28 mg/dL L* mg/dL (70-110) Calculated Osmolality 274 mOsm/kg L mOsm/kg (285-295) Lactate 0.8 mmol/L mmol/L (0.5-2.2) Calcium 8.2 mg/dL L mg/dL (8.5-10.5) Total Bilirubin 0.4 mg/dL mg/dL (0.15-1.2) AST 32 U/L U/L (0-40) ALT 31 U/L U/L (0-41) Alkaline Phosphatase 149 IU/L H IU/L (40-130) Total Protein 7.0 g/dL g/dL (6.6-8.7) Albumin 3.5 g/dL g/dL (3.5-5.2) Globulin 3.5 g/dL g/dL (1.3-4.6) Lipase 31 U/L U/L (13-60) Coronavirus 229E (PCR) SARS-CoV-2 (PCR) 05/27/21 05/27/21 05/27/21 00:42 00:43 00:45 WBC RBC Hgb Hct MCV MCH MCHC RDW Plt Count MPV Neut % (Auto) Lymph % (Auto) Ritchie % (Auto) Eos % (Auto) Baso % (Auto) Neut # (Auto) Lymph # (Auto) Ritchie # (Auto) Eos # (Auto) Baso # (Auto) Nucleated RBC % (auto) Nucleated RBCs # PT INR APTT Sodium Potassium Chloride Carbon Dioxide Anion Gap BUN Creatinine GFR Calculation Glucose POC Glucose 301 mg/dL H mg/dL 207 mg/dL H mg/dL 118 mg/dL H mg/dL (70-110) (70-110) (70-110) Calculated Osmolality Lactate Calcium Total Bilirubin AST ALT Alkaline Phosphatase Total Protein Albumin Globulin Lipase Coronavirus 229E (PCR) SARS-CoV-2 (PCR) 05/27/21 05/27/21 05/27/21 01:05 01:38 02:06 WBC RBC Hgb Hct MCV MCH MCHC RDW Plt Count MPV Neut % (Auto) Lymph % (Auto) Ritchie % (Auto) Eos % (Auto) Baso % (Auto) Neut # (Auto) Lymph # (Auto) Ritchie # (Auto) Eos # (Auto) Baso # (Auto) Nucleated RBC % (auto) Nucleated RBCs # PT INR APTT Sodium Potassium Chloride Carbon Dioxide Anion Gap BUN Creatinine GFR Calculation Glucose POC Glucose 80 mg/dL mg/dL 49 mg/dL L mg/dL 79 mg/dL mg/dL (70-110) (70-110) (70-110) Calculated Osmolality Lactate Calcium Total Bilirubin AST ALT Alkaline Phosphatase Total Protein Albumin Globulin Lipase Coronavirus 229E (PCR) SARS-CoV-2 (PCR) 05/27/21 05/27/21 02:46 02:49 WBC RBC Hgb Hct MCV MCH MCHC RDW Plt Count MPV Neut % (Auto) Lymph % (Auto) Ritchie % (Auto) Eos % (Auto) Baso % (Auto) Neut # (Auto) Lymph # (Auto) Ritchie # (Auto) Eos # (Auto) Baso # (Auto) Nucleated RBC % (auto) Nucleated RBCs # PT INR APTT Sodium Potassium Chloride Carbon Dioxide Anion Gap BUN Creatinine GFR Calculation Glucose POC Glucose 58 mg/dL L mg/dL 55 mg/dL L mg/dL (70-110) (70-110) Calculated Osmolality Lactate Calcium Total Bilirubin AST ALT Alkaline Phosphatase Total Protein Albumin Globulin Lipase Coronavirus 229E (PCR) SARS-CoV-2 (PCR) Discharge Plan Discharge Patient Disposition: Admitted As Inpatient Admit Provider: Carroll Hercules Clinical Impression: Generalized abdominal pain, Nausea & vomiting, Abdominal distension, Abdominal ascites, COVID Condition: Stable Coding Level of Care Code ED Motion Study Analyst for Chg Fwd Exam Comprehensive
--- NOTE | 2021-05-26 16:25 | XRR_ITS ---
PROCEDURE INFORMATION: Exam: XR Chest Exam date and time: 05/26/2021 4:25 PM Age: 40 years old Clinical indication: Dyspnea TECHNIQUE: Imaging protocol: XR of the chest. Views: 1 view. COMPARISON: 1. CT chest abd pel wo con 03/01/2021 4:22 PM 2. CR XR chest 1V portable [id number] 03/01/2021 2:40 PM FINDINGS: Lungs: There is calcified granuloma in the right mid lung. No focal infiltrate is identified. Pleural spaces: The pleural effusion is cleared compared with 03/01/2021. Heart/Mediastinum: The heart is mildly enlarged. Bones/joints: Unremarkable. XR/XR chest 1V portable [id number] IMPRESSION: Mild cardiomegaly. No acute infiltrate.
[2021-05-26] MEDS: sodium chloride 0.9% 1,000 ML 999 ML IV (16:48)
[2021-05-26] MEDS: morphine 4 mg/mL SDV 1 mL 2 MG IVP (16:58)
[2021-05-26] MEDS: iodixanol 320 mg/mL 100mL Btl IV (17:41)
[2021-05-26 17:51] LABS: Basophils % 0.6 %; Eosinophils # 0.1 10^3/uL (0.0-0.8); Eosinophils % 2.7 %; Hematocrit 32.1 % (42.0-52.0); Lymphocytes # 0.5 10^3/uL (0.8-4.8); Lymphocytes % 16.5 %; Mean Corpuscular HGB Conc 31.2 g/dL (30.0-36.0); Mean Corpuscular Hemoglobin 27.2 pg (28.0-34.0); Mean Corpuscular Volume 87.2 fl (80-94); Mean Platelet Volume 10.3 fL (7.4-10.4); Monocytes # 0.2 10^3/uL (0.2-0.9); Monocytes % 6.1 %; Neutrophils # 2.42 10^3/uL (1.8-7.7); Neutrophils % 73.8 %; Nucleated Red Blood Cells % 0 %; Platelet Count 107 10^3/cmm (130-400); Red Blood Count 3.68 10^6/uL (4.1-5.3); Red Cell Distribution Width 18.7 % (12.1-15.1); White Blood Count 3.3 10^3/uL (4.0-10.0)
[2021-05-26 18:05] LABS: INR 1.15 (0.8-1.2)
[2021-05-26 18:06] LABS: Partial Thromboplastin Time 40.2 SECONDS (23.9-36.7)
[2021-05-26 18:09] LABS: Lactate (Lactic Acid level) 0.8 mmol/L (0.5-2.2)
[2021-05-26 18:10] LABS: Alanine Aminotransferase 31 U/L (0-41); Albumin Level 3.5 g/dL (3.5-5.2); Alkaline Phosphatase 149 IU/L (40-130); Anion Gap 22.1 (5-19); Aspartate Amino Transferase 32 U/L (0-40); Blood Urea Nitrogen 32 mg/dL (6-20); Calcium 8.2 mg/dL (8.5-10.5); Carbon Dioxide 22 mmol/L (22-29); Chloride 91 mmol/L (98-107); Globulin 3.5 g/dL (1.3-4.6); Glomerular Filtration Rate 6.8 mL/min (90-130); Glucose 77 mg/dL (65-115); Lipase 31 U/L (13-60); Osmolality Calculated 274 mOsm/kg (285-295); Potassium 6.1 mmol/L (3.5-5.1); Sodium 129 mmol/L (136-145); Total Bilirubin 0.4 mg/dL (0.15-1.2)
[2021-05-26 19:01] LABS: Adenovirus Not Detected (NOT DETECT); Chlamydia Pneumoniae Not Detected (NOT DETECT); Coronavirus 229E,HKU1,NL63,OC4 Not Detected (NOT DETECT); Human Metapneumovirus Not Detected (NOT DETECT); Human Rhinovirus/Enterovirus Not Detected (NOT DETECT); Influenza A Not Detected (NOT DETECT); Influenza A H1 Not Detected (NOT DETECT); Influenza A H1-2009 Not Detected (NOT DETECT); Influenza A H3 Not Detected (NOT DETECT); Influenza B Not Detected (NOT DETECT); Mycoplasma Pneumoniae Not Detected (NOT DETECT); Parainfluenza Virus Type 1 Not Detected (NOT DETECT); Parainfluenza Virus Type 2 Not Detected (NOT DETECT); Parainfluenza Virus Type 3 Not Detected (NOT DETECT); Parainfluenza Virus Type 4 Not Detected (NOT DETECT); Respiratory Syncytial Virus A Not Detected (NOT DETECT); Respiratory Syncytial Virus B Not Detected (NOT DETECT); SARS-COV-2 Detected (NOT DETECT)
[2021-05-26] MEDS: piperacillin-tazobactam 4.5 GM in sodium chloride 0.9% (plus) 50 ML IV (19:52)
[2021-05-26] MEDS: HYDROmorphone 1 mg/mL INJ 1 mL 0.5 MG IVP (19:52)
[2021-05-26] MEDS: fentaNYL 50 mcg/mL INJ 2mL 75 MCG IVP (21:19)
--- NOTE | 2021-05-26 21:32 | P.HP_ITS ---
Providers/Chief Complaint Primary Care Provider: Mal Junior Chief Complaint: body aches,sob History of Present Illness Mal Gibbs is a 40 year old male with past medical history of end-stage renal disease dialysis dependent Thursday, hypertension, diastolic congestive heart failure, COPD, came in with chief complaint of generalized abdominal pain nausea, vomiting , fever, chills with sore throat, going on for the last 2 days. Upon arrival in the ER he was worked up for above-mentioned complaints. Pertinent imaging studies: CT abdomen pelvis w con: 1. Severe ascites 2. Abnormal enhancement pattern of the liver suggesting underlying liver disease. 3. Splenomegaly 4. Atrophic kidneys XR chest : Mild cardiomegaly. No acute infiltrate. Pertinent labs: WBC 3.3, H&H 10/ 32 , PLT : 107 , serum sodium 129, serum potassium 6.1, BUN/SCR : 32/8.8 Patient was given a dose of Zosyn in the ER. Diagnostic tap was attempted: With insufficient fluid: Review of Systems Const: Denies: diaphoresis Card: Denies: palpitations or leg pain with exertion Resp: Denies: wheezing or pain on inspiration GI: Denies: constipation : Denies: flank pain Musc: Denies: back pain, extremity pain or extremity swelling Neuro: Denies: headache(s), difficulty walking or confusion Medications/Allergies Home Medications Medication Instructions Recorded Confirmed Last Taken Type carvedilol 25 mg tablet 50 mg PO BID tab 01/24/20 05/16/21 05/16/21 History Incruse Ellipta 1 inh INHALATION DAILY 05/03/20 05/16/21 05/16/21 History amlodipine 10 mg PO DAILY 01/17/21 05/16/21 05/16/21 History clonidine 0.3 mg TRANSDERMAL Q7D 01/17/21 05/16/21 05/12/21 History RenaPlex-D 1 tab PO BEDTIME 02/25/21 05/16/21 05/15/21 History minoxidil 5 mg PO BID 02/25/21 05/16/21 05/16/21 History pantoprazole 40 mg PO BID 02/25/21 05/16/21 05/16/21 History sevelamer carbonate [Renvela] See Rx Instructions .ROUTE .COMPLEX 02/25/21 05/16/21 05/16/21 History isosorbide mononitrate 120 mg PO DAILY #60 tab 02/27/21 05/16/21 05/16/21 Rx gentamicin 1 drp OPHTHALMIC (EYE) Q6H #5 ml 05/17/21 Unknown Rx Allergies Allergy/AdvReac Type Severity Reaction Status Date / Time nifedipine Allergy Seth Verified 05/17/21 12:59 Lip/Tongue/Throat PFSH Acute PFSH: Medical History Acute diastolic CHF (congestive heart failure) Anasarca Anemia Anxiety with depression Arteriovenous fistula for hemodialysis in place, secondary Congestive heart failure COPD (chronic obstructive pulmonary disease) Current smoker Degenerative disc disease, lumbar End-stage renal disease on hemodialysis Gross hematuria Hemoptysis Hepatomegaly Hyperkalemia Hypertension Hypertensive emergency PHT (pulmonary hypertension) Surgical History H/O hand surgery Amputation right 2&3 fingers 2017 History of adenoidectomy Family History Father No problems noted. Other Hypertension Social History Smoking and tobacco status: current every day smoker Alcohol intake: never Marital status: Number of children: 3 Current occupational status: disabled History of recent travel: No Vitals/I&O/Wt Last Vital Signs Temp 97.8 F 05/26/21 14:13 Pulse 77 05/26/21 21:18 Resp 22 H 05/26/21 21:19 BP 217/151 05/26/21 21:18 Pulse Ox 95 05/26/21 21:18 05/26/21 05/26/21 05/26/21 06:59 14:59 22:59 Intake Total 1050 / 1050 Balance 1050 / 1050 Weight last 48 hrs Weight 79.379 kg Physical Exam Const: COMMON NORMALS: patient oriented x3 HENMT: COMMON NORMALS: normocephalic and atraumatic HEAD & SCALP: normocephalic and atraumatic Resp: COMMON NORMALS: clear to auscultation bilaterally AUSCULTATION: clear to auscultation bilaterally Cardio: COMMON NORMALS: regular rate, regular rhythm, S1 normal heart sound present, S2 normal heart sound present, No gallops present (Cardio), No murmurs present (Cardio), No rub (Cardio) and Peripheral pulses 2+ throughout RATE: regular rate RHYTHM: regular rhythm HEART SOUNDS: S1 normal heart sound present and S2 normal heart sound present PERIPHERAL PULSES: Peripheral pulses 2+ throughout GI: AUSCULTATION: Yes normoactive bowel sounds RECTAL EXAM: Yes deferred OTHER: Distended abdomen, with fluid thrill , generalized abdominal tenderness, no rebound tenderness Extremity: COMMON NORMALS: no clubbing, cyanosis or edema and no pedal edema Neuro: COMMON NORMALS: patient oriented x3 Data : 05/26/21 17:35 05/26/21 17:35 A&P Assessment and plan (1) Generalized abdominal pain: Status: Acute (2) Abdominal ascites: Status: Acute (3) Hyperkalemia: Status: Acute (4) COVID: Status: Acute (5) ESRD (end stage renal disease): Status: Acute (6) Hyponatremia: Status: Acute (7) COPD (chronic obstructive pulmonary disease): Status: Chronic (8) Diastolic heart failure: Status: Acute Additional A&P Information Mal Gibbs is a 40 year old male with past medical history of end-stage renal disease dialysis dependent Thursday, hypertension, diastolic congestive heart failure, COPD, came in with chief complaint of gener alized abdominal pain nausea, vomiting , fever, chills with sore throat, going on for the last 2 days. #Generalized abdominal pain secondary to tense ascites cannot conclusively rule out underlying SBP: #Hypertensive urgency: #Hyperkalemia #COVID-19 infection #Hyponatremia #End-stage renal disease dialysis dependent #HFpEF #COPD #Liver cirrhosis #Hypoglycemia : likely 2/2 to Liver Cirrhosis Current plan is to IR guided paracentesis Continue ceftriaxone 2 g every 24 hours Continue home antihypertensive medication on nitro drip as patient is allergic to Nifedpine. Currently patient is saturating well on minimal supplemental oxygen, x-ray did not suggest infiltrates Will avoid dexamethasone and remdesivir for now Hyperkalemia cocktail correction given Renal Consult in a.m. for routine hemodialysis Has received 4 AMps of dextrose but currently on D10W @100CC/Hr Monitor FSG Q1 Hrs Follow ascitic fluid cell count and differential, as well as Gram stain culture and sensitivity Procedures Paracentesis Time out performed: Yes Indication: possible spontaneous bacterial peritonitis Procedure: diagnostic paracentesis Location: RLQ Local anesthetic used: lidocaine 1% Bedside ultrasound used: yes, real-time guidance Preparation: sterile prep and drape Amount of fluid obtained (ml): 10 Fluid: clear Post procedure exam: awake, alert, normal BP and normal HR Patient tolerated procedure: well Complications: none Attestations Medical Necessity Statement*: Patient needs to be in hospital for the management of Hypertensive urgency, tense ascites, hyperkalemia. Anticipated LOS Greater then 2 midnights. Time Spent in Patient Care: Greater than 35 minutes Critical Care Time: Critical Care Time (min): 40 Other Attestations: The high probability of a clinically significant, sudden or life threatening deterioration of the patient's [] system(s) required my full and direct attention, intervention and personal management. The critical care time is as shown. This time is in addition to time spent performing any reported procedures but includes the following: [x] Data and vital sign review and interpretation [x] Patient assessment, examination and intervention [x] Documentation [x] Medication orders and management Coding Level of Care Code Acute Acidizer Helper for [facility] Fwd Exam Detailed Diagnoses Generalized abdominal pain R10.84 Abdominal ascites R18.8 Hyperkalemia E87.5 COVID U07.1 ESRD (end stage renal disease) N18.6 Hyponatremia E87.1 COPD (chronic obstructive pulmonary disease) J44.9 Diastolic heart failure I50.30
[2021-05-26] MEDS: cloNIDine 0.1 mg Tablet 0.2 MG PO (22:00)
[2021-05-26] MEDS: cefTRIAXone 2,000 MG in sodium chloride 0.9% (plus) 50 ML 100 MG IV (22:00)
[2021-05-26] MEDS: minoxidil 10 mg Tablet 5 MG PO (22:26)
[2021-05-26] MEDS: dextrose 50% syringe 50 mL IVP (22:26)
[2021-05-26] MEDS: insulin regular-human 100 units/1 mL 10 UNIT IVP (22:27)
[2021-05-26] MEDS: sodium polystyrene sulfonate 15 gm/60 mL Btl PO (23:47)
[2021-05-27] VITALS (24 sets, daily range): BP systolic 162–258; BP diastolic 105–160; PULSE 60–111; RESP 15–26; TEMP 36.5; O2SAT 95–100; BMI 23.2
[2021-05-27 00:42] LABS: Glucose Point of Care 28 mg/dL (70-110)
[2021-05-27] MEDS: dextrose 50% syringe 50 mL ×2 (00:45→02:52)
[2021-05-27 00:51] LABS: Glucose Point of Care 118 mg/dL (70-110)
[2021-05-27 00:52] LABS: Glucose Point of Care 207 mg/dL (70-110)
[2021-05-27 00:52] LABS: Glucose Point of Care 301 mg/dL (70-110)
[2021-05-27 01:08] LABS: Glucose Point of Care 80 mg/dL (70-110)
[2021-05-27] MEDS: dextrose 5%-sod chloride 0.9% 1,000 ML 125 ML IV (01:24)
[2021-05-27] MEDS: dextrose 50% syringe 50 mL IVP (01:40)
[2021-05-27 01:41] LABS: Glucose Point of Care 49 mg/dL (70-110)
--- NOTE | 2021-05-27 01:46 | PC.NURSE ---
rebekah Dyson, advised Dr. Ward, received order for amp d50w IVP
--- NOTE | 2021-05-27 01:57 | PC.NURSE ---
called Dr. Hercules about patient BP of 225/127. Dr. Hercules gave verbal order for clonidine 0.3 mg PO once now and minoxidil 5 mg PO once now.
[2021-05-27 02:09] LABS: Glucose Point of Care 79 mg/dL (70-110)
[2021-05-27] MEDS: cloNIDine 0.1 mg Tablet 0.3 MG PO (02:17)
[2021-05-27 02:53] LABS: Glucose Point of Care 55 mg/dL (70-110)
[2021-05-27 02:53] LABS: Glucose Point of Care 58 mg/dL (70-110)
[2021-05-27] MEDS: dextrose 10% 1,000 ML 100 ML IV (03:02)
[2021-05-27] MEDS: minoxidil 10 mg Tablet 5 MG PO ×2 (03:07→10:18)
[2021-05-27 03:29] LABS: Glucose Point of Care 79 mg/dL (70-110)
[2021-05-27 04:05] LABS: Glucose Point of Care 62 mg/dL (70-110)
[2021-05-27] MEDS: dextrose 50% syringe 50 mL 100 ML IVP (04:35)
[2021-05-27] MEDS: hyDRALAzine 20 mg/mL INJ 1 mL 10 MG IVP (04:35)
[2021-05-27] MEDS: enalaprilat 1.25 mg/mL Inj IVP ×2 (05:00→22:45)
[2021-05-27 05:08] LABS: Glucose Point of Care 135 mg/dL (70-110)
--- NOTE | 2021-05-27 05:15 | PC.NURSE ---
Notified Dr. Hercules of patient blood pressure of 252/150 after hydralazine 10 mg IVP and Vasotec 1.25 mg IVP. No new orders received.
[2021-05-27 05:55] LABS: Glucose Point of Care 87 mg/dL (70-110)
--- NOTE | 2021-05-27 06:27 | PC.NURSE ---
Advised Dr. Hercules of patient BP, verbal order for nitroglycerin titratable drip IV
[2021-05-27] MEDS: dextrose 10% 1,000 ML 50 ML IV (06:36)
[2021-05-27] MEDS: nitroglycerin drip 50 MG/250 ML PREMIX IV (06:45)
[2021-05-27 06:52] LABS: Glucose Point of Care 90 mg/dL (70-110)
[2021-05-27 08:04] LABS: Basophils % 0.7 %; Eosinophils # 0.1 10^3/uL (0.0-0.8); Eosinophils % 2.3 %; Hematocrit 32.5 % (42.0-52.0); Hemoglobin 10.3 g/dL (11.7-16.6); Lymphocytes # 0.6 10^3/uL (0.8-4.8); Lymphocytes % 13.2 %; Mean Corpuscular HGB Conc 31.7 g/dL (30.0-36.0); Mean Corpuscular Hemoglobin 27.3 pg (28.0-34.0); Mean Corpuscular Volume 86.2 fl (80-94); Monocytes # 0.1 10^3/uL (0.2-0.9); Monocytes % 3.2 %; Neutrophils # 3.54 10^3/uL (1.8-7.7); Neutrophils % 80.4 %; Nucleated Red Blood Cells % 0.5 %; Platelet Count 109 10^3/cmm (130-400); Red Blood Count 3.77 10^6/uL (4.1-5.3); Red Cell Distribution Width 18.7 % (12.1-15.1); White Blood Count 4.4 10^3/uL (4.0-10.0)
[2021-05-27 08:21] LABS: INR 1.09 (0.8-1.2)
[2021-05-27 08:25] LABS: Alanine Aminotransferase 30 U/L (0-41); Albumin Level 3.4 g/dL (3.5-5.2); Alkaline Phosphatase 134 IU/L (40-130); Anion Gap 24.4 (5-19); Aspartate Amino Transferase 25 U/L (0-40); Blood Urea Nitrogen 35 mg/dL (6-20); Calcium 9.1 mg/dL (8.5-10.5); Carbon Dioxide 20 mmol/L (22-29); Chloride 90 mmol/L (98-107); Globulin 3.9 g/dL (1.3-4.6); Glomerular Filtration Rate 6.9 mL/min (90-130); Glucose 85 mg/dL (65-115); Osmolality Calculated 275 mOsm/kg (285-295); Potassium 5.4 mmol/L (3.5-5.1); Sodium 129 mmol/L (136-145); Total Bilirubin 0.5 mg/dL (0.15-1.2); Total Protein 7.3 g/dL (6.6-8.7)
[2021-05-27 08:26] LABS: Lactic Sepsis W/Reflex 0.9 mmol/L (0.5-2.2)
[2021-05-27] MEDS: labetalol 300 MG in sodium chloride 0.9% 240 ML 30 MG IV (08:29)
[2021-05-27 08:40] LABS: Phosphorus 7.8 mg/dL (2.5-4.5)
[2021-05-27 08:41] LABS: Glucose Point of Care 69 mg/dL (70-110)
[2021-05-27 08:41] LABS: Glucose Point of Care 101 mg/dL (70-110)
[2021-05-27 08:41] LABS: Glucose Point of Care 122 mg/dL (70-110)
[2021-05-27 08:45] LABS: Procalcitonin 17.22 ng/mL (0-0.5)
[2021-05-27] MEDS: amlodipine 10 mg Tablet PO (09:00)
[2021-05-27] MEDS: bisacodyl 5 mg Tablet 10 MG PO (09:00)
[2021-05-27] MEDS: isosorbide mononitrate ER 60 mg Tablet PO (09:01)
[2021-05-27] MEDS: carvedilol 25 mg Tablet PO ×2 (09:01→21:15)
--- NOTE | 2021-05-27 09:01 | PC.PHAR ---
Addendum entered by Lou Giraldo 05/27/21 09:06: pt states he is no longer taking renaplex d ext med history shows last filled 10/16/20 90ds=pt states he is no longer taking eliquis 5mg bid ext med history shows last filled 11/13/20 30d/s Original Note: pt states he takes care of his own medications-notes are made in the pharmacy comments
[2021-05-27] MEDS: cloNIDine 0.1 mg Tablet 0.2 MG PO ×2 (10:18→21:15)
--- NOTE | 2021-05-27 10:18 | PM.CONSULT ---
Providers/Reason For Consult Consulting Physician/Specialty*: tona rosario md Reason for Consult*: ESRD, htn, AMS, hypoglycemia Attending Physician: Emanuel Nation MD Primary Care Provider: Mal uJnior History of Present Illness History of Present Illness Mal Gibbs is a 40 year old male with past medical history of end-stage renal disease dialysis dependent Thursday, hypertension, diastolic congestive heart failure, COPD. Pt admitted w/ htn, volume overload and hypoglycemia. CT abdomen pelvis w con: 1. Severe ascites 2. Abnormal enhancement pattern of the liver suggesting underlying liver disease. 3. Splenomegaly 4. Atrophic kidneys XR chest : Mild cardiomegaly. No acute infiltrate. Review of Systems General: Reports: ROS unobtainable due to medical condition and ROS unobtainable due to mental status Narrative: lethargic, weak. confused, edema. sob Medications/Allergies Home Medications Medication Instructions Recorded Confirmed Last Taken Type carvedilol 25 mg tablet 50 mg PO BID tab 01/24/20 05/27/21 05/16/21 History Incruse Ellipta 1 inh INHALATION DAILY 05/03/20 05/27/21 05/16/21 History amlodipine 10 mg PO DAILY 01/17/21 05/27/21 05/16/21 History clonidine 0.3 mg TRANSDERMAL Q7D 01/17/21 05/27/21 05/19/21 History minoxidil 2.5 mg PO BID 02/25/21 05/27/21 05/16/21 History pantoprazole 40 mg PO BID 02/25/21 05/27/21 05/16/21 History sevelamer carbonate [Renvela] See Rx Instructions .ROUTE .COMPLEX 02/25/21 05/27/21 05/16/21 History albuterol sulfate [ProAir HFA] 2 puff INHALATION QID PRN 05/27/21 05/27/21 Unknown History clonidine HCl See Rx Instructions .ROUTE .COMPLEX 05/27/21 05/27/21 Unknown History fluticasone propionate 2 spray INTRANASAL DAILY PRN 05/27/21 05/27/21 Unknown History gentamicin 1 drp OPHTHALMIC (EYE) Q6H 05/27/21 05/27/21 Unknown History isosorbide mononitrate 60 mg PO QAM 05/27/21 05/27/21 Unknown History lisinopril 40 mg PO DAILY 05/27/21 05/27/21 Unknown History trazodone 50 mg PO BEDTIME PRN 05/27/21 05/27/21 Unknown History Allergies Allergy/AdvReac Type Severity Reaction Status Date / Time nifedipine Allergy Seth Verified 05/27/21 09:01 Lip/Tongue/Throat Current Medications Generic Name Dose Route Start Last Admin Trade Name Freq PRN Reason Stop Dose Admin Amlodipine Besylate 10 mg 05/27/21 09:00 05/27/21 09:00 Amlodipine 10 Mg Tablet PO 10 mg DAILY ARTEM Administration Bisacodyl 10 mg 05/26/21 21:16 05/27/21 09:00 Bisacodyl 5 Mg Tablet PO 10 mg DAILY PRN Administration Constipation (see protocol) Protocol Carvedilol 25 mg 05/27/21 09:00 05/27/21 09:01 Carvedilol 25 Mg Tablet PO 25 mg BID ARTEM Administration Clonidine HCl 0.2 mg 05/26/21 21:25 05/26/21 22:00 Clonidine 0.1 Mg Tablet PO 0.2 mg TID ARTEM Administration Enalaprilat 1.25 mg 05/27/21 04:39 05/27/21 05:00 Enalaprilat 1.25 Mg/Ml Inj IVP 1.25 mg Q6H PRN Administration HYPERTENSION Hydromorphone HCl 2 mg 05/26/21 21:45 05/27/21 03:46 Hydromorphone 4 Mg Tablet PO 2 mg Q6H ARTEM Administration Ceftriaxone Sodium 2,000 mg/ 50 mls @ 100 mls/hr 05/26/21 21:30 05/27/21 01:24 Sodium Chloride IV Infused Q24H ARTEM Infusion Protocol Dextrose 1,000 mls @ 100 mls/hr 05/27/21 03:00 05/27/21 09:34 D10w IV Infused .Q10H ARTEM Infusion Nitroglycerin/Dextrose 50 mg in 250 mls @ 0 mls/hr 05/27/21 06:15 05/27/21 07:59 Nitroglycerin Drip IV 15 mcg/min .Q0M ARTEM 4.5 mls/hr Titration Protocol Per Protocol Dextrose 1,000 mls @ 50 mls/hr 05/27/21 06:30 05/27/21 09:34 D10w IV 0 mls/hr .Q20H ARTEM Infusion Labetalol HCl 300 mg/ Sodium 300 mls @ 0 mls/hr 05/27/21 08:00 05/27/21 08:29 Chloride IV 0.5 mg/min .Q0M ARTEM 30 mls/hr Administration Protocol Per Protocol Isosorbide Mononitrate 60 mg 05/27/21 09:00 05/27/21 09:01 Isosorbide Mononitrate Er 60 Mg Tablet PO 60 mg DAILY ARTEM Administration Minoxidil 5 mg 05/26/21 21:25 05/26/21 22:26 Minoxidil 10 Mg Tablet PO 5 mg BID ARTEM Administration PFSH Acute PFSH: Medical History Acute diastolic CHF (congestive heart failure) Anasarca Anemia Anxiety with depression Arteriovenous fistula for hemodialysis in place, secondary Congestive heart failure COPD (chronic obstructive pulmonary disease) Current smoker Degenerative disc disease, lumbar End-stage renal disease on hemodialysis Gross hematuria Hemoptysis Hepatomegaly Hyperkalemia Hypertension Hypertensive emergency PHT (pulmonary hypertension) Surgical History H/O hand surgery Amputation right 2&3 fingers 2017 History of adenoidectomy Family History Father No problems noted. Other Hypertension Social History Smoking and tobacco status: current every day smoker Alcohol intake: never Marital status: Number of children: 3 Current occupational status: disabled History of recent travel: No Vitals/I&O/Wt Last Vital Signs Temp 97.8 F 05/26/21 14:13 Pulse 79 05/27/21 08:41 Resp 18 05/27/21 08:41 BP 196/136 05/27/21 09:35 Pulse Ox 99 05/27/21 08:41 05/26/21 05/27/21 05/27/21 22:59 06:59 14:59 Intake Total 1050 / 1050 614.583 / 1664.583 793.700 / 793.700 Balance 1050 / 1050 614.583 / 1664.583 793.700 / 793.700 Weight last 48 hrs Weight 79.379 kg Physical Exam Narrative: EXAM NARRATIVE: swollen, sob in bed vs noted- on nitro and labetalol drips heent- nc/at, eomi, anicteric neck supple lungs wheezes and crackles heart reg abd soft, distended, ascites ext b/l 2+ edema neuro- lethrgic + avf Data Micro: Micro: Microbiology 05/26/21 22:00 Blood Culture - Pr eliminary Blood SPECIMEN [facility] 05/26/21 22:03 Blood Culture - Pr eliminary Blood SPECIMEN [facility] A&P Additional A&P Information 40 yr old man 1. ESRD, hyperkalemia, htn- emergent HD- for HD today - 3.5 hrs, 2k, remove 3.5 l 2. htn- monitor w/ hd - wean off labetalol and nitro 3. hyponatremia - should improve w/ hd -check tsh 4. diastolic dysfunction - remove fluids w/ hd -bp control 5. bone- mineral- metabolism of ESRD - monitor ca, phos, pth- phos binders 6. anemia- hgb stable -hold epo w/ htn seen and examined w/ RN- telehealth visit time spent 50 minutes discussed w/ RN, and Dr. Nation Consult Attestations Medical Necessity Statement: esrd, hyperkalemia, volume overload, htn urgency Time Spent in Patient Care: Greater than 35 minutes (>than 50% of time spent in counselling and/or direct pt care on unit). Coding Level of Care Code Acute Funnel Coater for Cristi Diane
[2021-05-27 10:21] LABS: Glucose Point of Care 108 mg/dL (70-110)
[2021-05-27 10:59] LABS: Glucose Point of Care 87 mg/dL (70-110)
--- NOTE | 2021-05-27 10:59 | PC.NURSE ---
AT APPROXIMATELY 934, PROVIDER SPOKE WITH NURSE ABOUT PATIENT BLOOD SUGARS AND BLOOD PRESSURE. PROVIDER STATED TO STOP DEXTROSE AND CONTINUE WITH LABETALOL AND NITRO. NURSE VERBALIZED BACK. AT APPROXIMATELY 1100, PROVIDER NOTIFIED THAT PATIENT BLOOD SUGAR HAD DROPPED 40 POINTS IN 1 HOUR. PROVIDER STATED TO PROVIDER FOOD AND RESTART DEXTROSE AND CONTINUE TO RECHECK BLOOD SUGARS. IF STABILIZED, CAN REMOVE DEXTROSE.
[2021-05-27 11:56] LABS: Hepatitis B Surface Antigen Non-Reactive (Nonreactive); Hepatitis C Virus Antibody Non-Reactive (Nonreactive)
[2021-05-27 12:09] LABS: Glucose Point of Care 95 mg/dL (70-110)
--- NOTE | 2021-05-27 12:56 | PM.PN ---
Subjective Subjective: Interval history: This morning patient was seen in the ER He was sitting in the bed very lethargic and tired Able to answer my question appropriately I updated his mother as well and talked about active clinical issues, treatment plan, as she is high risk for cardiac and respiratory complications All questions were answered to her satisfaction I spoke with with employment coach Dr. Betancourt as well Vitals/I&O/Wt Last Vital Signs Temp 97.8 F 05/26/21 14:13 Pulse 65 05/27/21 12:29 Resp 17 05/27/21 12:29 BP 177/114 05/27/21 12:09 Pulse Ox 98 05/27/21 12:29 05/26/21 05/27/21 05/27/21 22:59 06:59 14:59 Intake Total 1050 / 1050 614.583 / 1664.583 793.700 / 793.700 Balance 1050 / 1050 614.583 / 1664.583 793.700 / 793.700 Weight last 48 hrs Weight 79.379 kg Physical Exam Narrative: EXAM NARRATIVE: Patient sitting in his bed Lethargic and fatigued Saturating well on 3 L nasal cannula Unkept appearance Venous stasis dermatitis Left arm fistula Nonfocal neuro exam His abdomen is soft and most of the quadrant except at the site of attempted paracentesis in the right lower quadrant, distended abdomen, ascites Organomegaly noted Bilateral breath sound with rhonchi at the bases Diminished airflow Patient is on 2 antihypertensive gtt. Hyperglycemia noted this morning Data : 05/27/21 08:00 05/27/21 08:00 Micro: Microbiology 05/26/21 22:00 Blood Culture - Preliminary Blood SPECIMEN COLLECTED 05/26/21 22:03 Blood Culture - Preliminary Blood SPECIMEN COLLECTED A&P Assessment and plan (1) Diastolic heart failure: Status: Acute (2) Hyponatremia: Status: Acute (3) Acute exacerbation of chronic obstructive airways disease: Status: Acute (4) Hypertensive emergency: Status: Acute (5) Hyperkalemia: Status: Acute (6) Generalized abdominal pain: Status: Acute (7) Abdominal distension: Status: Acute (8) Abdominal ascites: Status: Acute (9) COVID: Status: Acute (10) Anemia: Status: Acute (11) ESRD (end stage renal disease): Status: Acute Additional A&P Information COVID-19 related hypoxia currently on 3 to nasal cannula Hypertensive emergency currently on 2 antibiotics rigidity, mean arterial pressure reduction 25 to 30% in next 6 to 8 hours Abdominal pain Rule out SBP continue ceftriaxone 2 g, We will add nadolol No active signs of hepatic encephalopathy, check ammonia level Awaiting therapeutic and diagnostic paracentesis, 10 mL of peritoneal fluid was sent by admitting MD End-stage renal disease telemetry nephro consulted We also trying to find ICU bed for him in outside facility if no beds available for him in next few hours in our hospital Appreciate nephro recommendations Hyperkalemia: Improved Anemia of chronic disease: Stable Full code Mother updated DVT prophylaxis: Start heparin 8-12 hours after paracentesis Attestations Medical Necessity Statement*: Needs ICU Time Spent in Patient Care: 16 - 35 minutes Coding Level of Care Code Acute Ice House Supervisor for [facility] Fwd Diagnoses Diastolic heart failure I50.30 Hyponatremia E87.1 Acute exacerbation of chronic obstructive airways disease J44.1 Hypertensive emergency I16.1 Hyperkalemia E87.5 Generalized abdominal pain R10.84 Abdominal distension R14.0 Abdominal ascites R18.8 COVID U07.1 Anemia D64.9 ESRD (end stage renal disease) N18.6
[2021-05-27 12:58] LABS: Glucose Point of Care 97 mg/dL (70-110)
--- NOTE | 2021-05-27 13:57 | PC.NURSE ---
PATIENT VERY LETHARGIC IN ROOM AND RESPONDS TO VERBAL COMMAND AND PAIN. PATIENT STATES THAT HE IS TAPPED OUT AND VERY SORE.
[2021-05-27 13:59] LABS: Glucose Point of Care 99 mg/dL (70-110)
--- NOTE | 2021-05-27 15:20 | PC.NURSE ---
PROVIDER PRESENT FOR DISCUSSION OF CURRENT PATIENT STATUS. PROVIDER NOTIFIED THAT PHYSICIAN HAS BEEN IN LETHARGIC AND DROWSY STUPOR FOR MOST OF THE DAY. PROVIDER VERBALIZED TO HOLD CLONIDINE AND DILAUDID AT 3 PM DUE TO BLOOD PRESSURE AND LOC. NURSE VERBALIZED BACK.
--- NOTE | 2021-05-27 15:38 | PC.NURSE ---
PATIENT PROVIDED WITH BEDSIDE COMMODE.
[2021-05-27 15:40] LABS: Glucose Point of Care 98 mg/dL (70-110)
[2021-05-27 15:46] LABS: Hepatitis B Surface AB > 1000.0 (11.5-1000)
--- NOTE | 2021-05-27 15:57 | PC.NURSE ---
PROVIDER NOTIFIED OF CHANGES. PROVIDER VERBALIZED TO TURN OFF THE LABETALOL AND CONTINUE TO INCREASE THE NITRO. PROVIDER WANTS THE PATIENT BP MAP BETWEEN 100-120.
[2021-05-27 16:03] LABS: ABG PCO2 40.7 mmHg (35-45); ABG PH Result 7.35 (7.35-7.45); Arterial Blood Gas Hematocrit 29.6 % (42-52); Base Excess ABG -3.2 mmol/L (-2.0-2.0); Blood Gas Allen Test Pos; Blood Gas Operator Identificat GD; Blood Gas Sample Site Radial, right; Blood Gas Sample Type Arterial; HCO3 ABG 22.3 mmol/L (22-26); Oxygen Device NC
[2021-05-27 17:15] LABS: Glucose Point of Care 77 mg/dL (70-110)
--- NOTE | 2021-05-27 18:32 | PC.NURSE ---
PATIENT IN DIALYSIS TREATMENT AT THIS TIME.
[2021-05-27 18:53] LABS: Ammonia 26 umol/L (16-60)
--- NOTE | 2021-05-27 20:00 | PC.NURSE ---
HD continuing. patient tolerating well. BP still elevated.
[2021-05-27] MEDS: cefTRIAXone 2,000 MG in sodium chloride 0.9% (plus) 50 ML 100 MG IV (21:16)
[2021-05-27 22:16] LABS: Glucose Point of Care 95 mg/dL (70-110)
[2021-05-27] MEDS: ondansetron 2 mg/ML SDV 2 mL 4 MG IVP (23:39)
[2021-05-27] MEDS: hyDRALAzine 20 mg/mL INJ 1 mL IVP (23:55)
[2021-05-28] VITALS (86 sets, daily range): BP systolic 118–252; BP diastolic 52–130; PULSE 65–90; RESP 12–32; TEMP 36.5–36.8; O2SAT 88–99; BMI 23.2
[2021-05-28] MEDS: metoprolol tartrate 1 mg/1 mL SDV 5 mL 5 MG IVP ×2 (01:05→02:01)
[2021-05-28] MEDS: ondansetron 2 mg/ML SDV 2 mL 4 MG IVP ×2 (02:04→09:23)
[2021-05-28] MEDS: hyDRALAzine 50 mg Tablet PO ×3 (02:11→17:48)
[2021-05-28] MEDS: esmolol drip 2,500 MG/250 ML PREMIX 23.99 MG IV (02:12)
[2021-05-28] MEDS: nitroglycerin drip 50 MG/250 ML PREMIX 60 MG IV ×3 (02:27→11:32)
[2021-05-28] MEDS: enalaprilat 1.25 mg/mL Inj IVP (05:15)
[2021-05-28 05:32] LABS: Alanine Aminotransferase 20 U/L (0-41); Alkaline Phosphatase 108 IU/L (40-130); Anion Gap 21.5 (5-19); Aspartate Amino Transferase 14 U/L (0-40); Blood Urea Nitrogen 21 mg/dL (6-20); Calcium 8.9 mg/dL (8.5-10.5); Carbon Dioxide 21 mmol/L (22-29); Chloride 94 mmol/L (98-107); Globulin 3.7 g/dL (1.3-4.6); Glomerular Filtration Rate 9.8 mL/min (90-130); Glucose 95 mg/dL (65-115); Magnesium 1.8 mg/dL (1.7-2.3); Osmolality Calculated 277 mOsm/kg (285-295); Phosphorus 5.8 mg/dL (2.5-4.5); Potassium 4.5 mmol/L (3.5-5.1); Sodium 132 mmol/L (136-145); Total Bilirubin 0.4 mg/dL (0.15-1.2); Total Protein 6.7 g/dL (6.6-8.7)
[2021-05-28 05:40] LABS: Basophils % 0.5 %; Eosinophils # 0.2 10^3/uL (0.0-0.8); Hematocrit 30.3 % (42.0-52.0); Hemoglobin 9.6 g/dL (11.7-16.6); Lymphocytes # 0.4 10^3/uL (0.8-4.8); Mean Corpuscular HGB Conc 31.7 g/dL (30.0-36.0); Mean Corpuscular Hemoglobin 27.7 pg (28.0-34.0); Mean Corpuscular Volume 87.6 fl (80-94); Mean Platelet Volume 10.4 fL (7.4-10.4); Monocytes # 0.2 10^3/uL (0.2-0.9); Monocytes % 4.8 %; Neutrophils # 2.96 10^3/uL (1.8-7.7); Neutrophils % 79.4 %; Nucleated Red Blood Cells % 0 %; Platelet Count 122 10^3/cmm (130-400); Red Blood Count 3.46 10^6/uL (4.1-5.3); White Blood Count 3.7 10^3/uL (4.0-10.0)
[2021-05-28] MEDS: esmolol drip 2,500 MG/250 ML PREMIX 95.96 MG IV ×3 (06:00→11:28)
[2021-05-28] MEDS: hyDRALAzine 20 mg/mL INJ 1 mL IVP (06:04)
[2021-05-28] MEDS: dextrose 10% 1,000 ML 50 ML IV (06:14)
[2021-05-28] MEDS: cloNIDine 0.1 mg Tablet 0.2 MG PO (07:05)
--- NOTE | 2021-05-28 07:11 | PC.NURSE ---
Blood Pressure See vital sign entries for high blood pressures throughout the night. See MAR for titrations of drips and administration of PRN medications. The following communication occurred at the designated times with Dr. Umana in attempts to decrease hypertension. 05/27/21 at 2350: Dr. Umana called and aware that patient is on the maximum rate of nitroglycerin drip administration per protocol with vasotec previously administered. Order received for hydralazine 20 mg IVP Q6H as needed for HTN and to alert of BP in 30 minutes after administration. 05/28/21 at 0030: Communication with Dr. Umana placed; order for 5 mg metoprolol IVP one time now and to alert of BP 30 minutes after medication administration. at 0130: BP relayed. Order received to repeat the one time dose of 5 mg Metoprolol IVP and alert of following BP. at 0200: BP relayed. Order received to begin Esmolol drip per protocol. Additionally, Dr. Umana made aware of patient being physically ill; order received for 4 mg Zofran IVP Q4H PRN. Esmolol drip titrated per JUL. BP started to decrease slightly; Dr. Umana aware of critical HTN during this period of time. at 0435: BP relayed yet again. Goal BP order received for SBP <160. No additional orders. at 0700: After administering PRN medications as per JUL, BP still high. Dr. Umana notified. ORder received to administer clonidine 0900 dose now. Order carried out per JUL. No additional orders received.
--- NOTE | 2021-05-28 08:02 | PM.PN ---
Subjective Subjective: Interval history: weak, nausea, swollen, sob, julio Medications: Reviewed: Yes Medication Review Details: Current Medications Acetaminophen (Acetaminophen 325 Mg Tablet) 650 mg PO Q6H PRN PRN Reason: Mild/Mod Pain Or Temp >/= 101 Albuterol/Ipratropium (Ipratropium-Albuterol 3 Ml Neb) 3 ml INHALATION Q6H.RESPIRATORY PRN PRN Reason: SHORTNESS OF BREATH Amlodipine Besylate (Amlodipine 10 Mg Tablet) 10 mg PO DAILY [facility] [place] Last Admin: 05/27/21 09:00 Dose: 10 mg Documented by: Bisacodyl (Bisacodyl 5 Mg Tablet) 10 mg PO DAILY PRN; Protocol PRN Reason: Constipation (see protocol) Last Admin: 05/27/21 09:00 Dose: 10 mg Documented by: Carvedilol (Carvedilol 25 Mg Tablet) 25 mg PO BID [facility] [place] Last Admin: 05/27/21 21:15 Dose: 25 mg Documented by: Clonidine HCl (Clonidine 0.1 Mg Tablet) 0.2 mg PO TID [facility] Last Admin: 05/28/21 07:05 Dose: 0.2 mg Documented by: Enalaprilat (Enalaprilat 1.25 Mg/Ml Inj) 1.25 mg IVP Q6H PRN PRN Reason: HYPERTENSION Last Admin: 05/28/21 05:15 Dose: 1.25 mg Documented by: Hydralazine HCl (Hydralazine 20 Mg/Ml Inj 1 Ml) 20 mg IVP Q6H PRN PRN Reason: HYPERTENSION Last Admin: 05/28/21 06:04 Dose: 20 mg Documented by: Hydralazine HCl (Hydralazine 50 Mg Tablet) 50 mg PO Q8H [facility] [place] Last Admin: 05/28/21 02:11 Dose: 50 mg Documented by: Hydromorphone HCl (Hydromorphone 4 Mg Tablet) 2 mg PO Q6H [facility] [place] Last Admin: 05/28/21 04:05 Dose: 2 mg Documented by: Ceftriaxone Sodium 2,000 mg/ (Sodium Chloride) 50 mls @ 100 mls/hr IV Q24H [facility] [place]; Protocol Last Admin: 05/27/21 21:16 Dose: 100 mls/hr Documented by: Dextrose (D10w) 1,000 mls @ 100 mls/hr IV .Q10H [facility] [place] Last Admin: 05/28/21 00:38 Dose: Not Given Documented by: Nitroglycerin/Dextrose (Nitroglycerin Drip) 50 mg in 250 mls @ 0 mls/hr IV .Q0M [facility] [place]; Protocol Last Admin: 05/28/21 06:33 Dose: 200 mcg/min, 60 mls/hr Documented by: Dextrose (D10w) 1,000 mls @ 50 mls/hr IV .Q20H [facility] [place] Last Admin: 05/28/21 06:14 Dose: 50 mls/hr Documented by: Labetalol HCl 300 mg/ Sodium (Chloride) 300 mls @ 0 mls/hr IV .Q0M [facility]; Protocol Last Admin: 05/27/21 08:29 Dose: 0.5 mg/min, 30 mls/hr Documented by: Esmolol HCl (Brevibloc Drip) 2,500 mg in 250 mls @ 0 mls/hr IV .Q0M [facility] [place]; Protocol Last Admin: 05/28/21 06:00 Dose: 200 mcg/kg/min, 95.96 mls/hr Documented by: Isosorbide Mononitrate (Isosorbide Mononitrate Er 60 Mg Tablet) 60 mg PO DAILY [facility] [place] Last Admin: 05/27/21 09:01 Dose: 60 mg Documented by: Minoxidil (Minoxidil 10 Mg Tablet) 5 mg PO BID [facility] [place] Last Admin: 05/28/21 00:04 Dose: Not Given Documented by: Naloxone HCl (Naloxone 0.4 Mg/Ml Sdv) 0.1 mg IVP Q2M PRN PRN Reason: OPIATERV Ondansetron HCl (Ondansetron 2 Mg/Ml Sdv 2 Ml) 4 mg IVP Q4H PRN PRN Reason: vomiting, or N/V if npo Vitals/I&O/Wt Last Vital Signs Temp 98.2 F 05/28/21 04:00 Pulse 76 05/28/21 06:45 Resp 17 05/28/21 06:45 BP 207/67 05/28/21 07:05 Pulse Ox 95 05/28/21 06:45 05/27/21 05/28/21 05/28/21 22:59 06:59 14:59 Intake Total 36.675 / 570.110 8380.292 / 2645.667 Balance 36.675 / 586.768 0526.292 / 2645.667 Weight last 48 hrs Weight 79.968 kg Weight 79.968 kg Weight 79.379 kg Physical Exam Narrative: EXAM NARRATIVE: swollen, sob in bed vs noted- on nitro and labetalol drips heent- nc/at, eomi, anicteric neck supple lungs wheezes and crackles heart reg abd soft, distended, ascites ext b/l 2+ edema neuro- lethrgic + avf Data : 05/28/21 04:20 05/28/21 04:20 Micro: Microbiology 05/26/21 22:03 Blood Culture - Preliminary Blood NEGATIVE TO DATE 05/26/21 22:00 Blood Culture - Preliminary Blood NEGATIVE TO DATE 05/26/21 19:08 Gram Stain - Final Peritoneal Fluid A&P Assessment and plan (1) ESRD (end stage renal disease): see below Status: Acute Plan 40? yr old man ascites, ESRD, COVID-19+ 1. ESRD,? hyperkalemia, htn- s/p HD yesterday. -repeat HD today - 3 hrs, 3k, remove 3 l 2. htn- monitor w/ hd 3. hyponatremia - should improve w/ hd -check tsh 4. diastolic dysfunction - remove fluids w/ hd -bp control 5. bone- mineral-? metabolism of ESRD - monitor ca, phos, pth- phos binders 6. anemia-? hgb okay for ESRD and COVID-19 -hold epo w/ htn and covid -check iron studies seen and examined w/ RN- telehealth visit time spent 30 minutes discussed w/ RN, Attestations Medical Necessity Statement*: sob, htn, esrd, covid Time Spent in Patient Care: 16 - 35 minutes (>than 50% of time spent in counselling and/or direct pt care on unit). 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
[2021-05-28 08:56] LABS: Iron 31 ug/dL (59-158); Percent Saturation 15.8 % (20-50); Total Iron Binding Capacity 196 mcg/dl; Unsaturated Iron Binding 165 ug/dL (112-347)
[2021-05-28] MEDS: carvedilol 25 mg Tablet PO ×2 (09:05→17:48)
[2021-05-28] MEDS: amlodipine 10 mg Tablet PO (09:06)
[2021-05-28] MEDS: isosorbide mononitrate ER 60 mg Tablet PO (09:07)
[2021-05-28 09:17] LABS: Ferritin 1523 ng/mL (30-400)
[2021-05-28] MEDS: minoxidil 10 mg Tablet 5 MG PO ×2 (09:17→17:48)
[2021-05-28 09:45] LABS: Glucose Point of Care 115 mg/dL (70-110)
[2021-05-28] MEDS: LORazepam 2 mg/mL INJ 1 mL 1 MG IVP (09:47)
[2021-05-28 11:48] LABS: Calcium 8.5 mg/dL (8.5-10.5)
--- NOTE | 2021-05-28 12:04 | PM.PN ---
Subjective Subjective: Interval history: This morning patient is stating as per the nurse he was able to wake up for a brief moment had some conversation, he was able to notify the nurse about his right side abdominal pain Vitals/I&O/Wt Last Vital Signs Temp 98.2 F 05/28/21 04:00 Pulse 78 05/28/21 08:28 Resp 18 05/28/21 08:28 BP 207/67 05/28/21 07:05 Pulse Ox 93 05/28/21 09:05 05/27/21 05/28/21 05/28/21 22:59 06:59 14:59 Intake Total 36.675 / 274.017 4368.292 / 2645.667 725.506 / 725.506 Balance 36.675 / 742.704 9910.292 / 2645.667 725.506 / 725.506 Weight last 48 hrs Weight 79.968 kg Weight 79.968 kg Weight 79.379 kg Physical Exam Narrative: EXAM NARRATIVE: No new neurological focal deficit He responds to verbal command Blood pressure this morning slightly better, however labile Abdomen with ascites, no guarding or rigidity or rebound tenderness however he is very tender on right lower quadrant Hepatomegaly noted Venous stasis dermatitis Unkept appearance No signs of meningitis Muscle mass loss Data : 05/28/21 04:20 05/28/21 04:20 Micro: Microbiology 05/26/21 22:03 Blood Culture - Preliminary Blood NEGATIVE TO DATE 05/26/21 22:00 Blood Culture - Preliminary Blood NEGATIVE TO DATE 05/26/21 19:08 Gram Stain - Final Peritoneal Fluid A&P Assessment and plan (1) Diastolic heart failure: Status: Acute (2) Hyponatremia: Status: Acute (3) Acute exacerbation of chronic obstructive airways disease: Status: Acute (4) COVID: Status: Acute (5) Abdominal ascites: Status: Acute (6) Generalized abdominal pain: Status: Acute (7) Hyperkalemia: Status: Acute (8) Hypertensive emergency: Status: Acute (9) Nausea & vomiting: Status: Acute (10) Abdominal distension: Status: Acute (11) ESRD (end stage renal disease): Status: Acute Plan Hypertensive emergency Patient is still drowsy and with labetalol blood pressure has not really improved, not able to do drug screen as he does not make any urine, my differential would definitely include polysubstance abuse I would use Cardene drip COVID-19 related hypoxia this morning he is on room air saturating well no active shortness of breath no conversational dyspnea Abdominal pain: Continue ceftriaxone Rule out SBP Ammonia level unremarkable Add nadolol Lactulose and rifaximin End-stage renal disease Dialysis session today appreciate nephro recommendations, Hyperkalemia: Improved DVT prophylaxis: Heparin Full code Attestations Medical Necessity Statement*: Continue ICU management Coding Level of Care Code 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
--- NOTE | 2021-05-28 12:40 | PC.NURSE ---
Report received from JAGUAR Dunbar. Care assumed. Pt resting in bed with eyes closed. SBP less cantrell 160. Esmolol gtt at 200mcg/kg/min, Nitro gtt at 200mcg/min, D10 infusing at 50ml/hr.
[2021-05-28] MEDS: cloNIDine 0.1 mg Tablet 0.3 MG PO ×3 (13:31→20:45)
[2021-05-28] MEDS: esmolol drip 2,500 MG/250 ML PREMIX 91.16 MG IV ×3 (15:11→21:14)
[2021-05-28] MEDS: nitroglycerin drip 50 MG/250 ML PREMIX 51 MG IV (15:11)
--- NOTE | 2021-05-28 19:46 | PC.NURSE ---
Shift Note: Pt rested in bed most of shift, with eyes closed. When he did wake up he would sit straight up in bed. 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 Abdomen remains firm, round and tender to touch. Pt afebrile. Oliguria noted. SBP improved enough to reduce Nitro gtt to 130mcg/min and Esmolol to 190mcg/kg/min. Frequent safety and comfort rounds continue. Orders and/or nursing care completed as indicated. Patient monitored for response to intervention and treatment(s). Education provided includes clonidine, Esmolol, Nitro and plan of care. Patient and/or licensing representative verbalized understanding of mediations, progress and plan of care. Will continue to monitor.
[2021-05-28 20:00] LABS: Glucose Point of Care 115 mg/dL (70-110)
[2021-05-28] MEDS: cefTRIAXone 2,000 MG in sodium chloride 0.9% (plus) 50 ML 100 MG IV (20:45)
--- NOTE | 2021-05-28 21:15 | PC.NURSE ---
Dialysis Patient receiving dialysis treatment at this time. All vitals stable.
[2021-05-28] MEDS: nitroglycerin drip 50 MG/250 ML PREMIX 30 MG IV (21:29)
[2021-05-29] VITALS (68 sets, daily range): BP systolic 121–209; BP diastolic 57–108; PULSE 64–81; RESP 12–33; TEMP 36.4–37; O2SAT 85–100; BMI 24.4
[2021-05-29] MEDS: esmolol drip 2,500 MG/250 ML PREMIX 91.16 MG IV (00:10)
--- NOTE | 2021-05-29 01:00 | PC.NURSE ---
Dialysis Finished At about this time patient finished dialysis. Brief discussion with dialysis nurse reveals no complications during therapy and approximately 3L of fluid removed. All vitals remain stable.
[2021-05-29] MEDS: dextrose 10% 1,000 ML 50 ML IV ×2 (01:18→20:32)
[2021-05-29] MEDS: hyDRALAzine 50 mg Tablet PO ×3 (02:23→17:09)
[2021-05-29] MEDS: esmolol drip 2,500 MG/250 ML PREMIX 79.17 MG IV ×4 (03:02→13:14)
[2021-05-29 03:49] LABS: Basophils % 0.5 %; Eosinophils # 0.1 10^3/uL (0.0-0.8); Eosinophils % 5.4 %; Hematocrit 29.3 % (42.0-52.0); Lymphocytes # 0.5 10^3/uL (0.8-4.8); Lymphocytes % 25.6 %; Mean Corpuscular HGB Conc 30.7 g/dL (30.0-36.0); Mean Corpuscular Hemoglobin 26.9 pg (28.0-34.0); Mean Corpuscular Volume 87.7 fl (80-94); Mean Platelet Volume 10.8 fL (7.4-10.4); Monocytes # 0.2 10^3/uL (0.2-0.9); Monocytes % 9.9 %; Neutrophils # 1.18 10^3/uL (1.8-7.7); Neutrophils % 58.1 %; Nucleated Red Blood Cells % 0 %; Platelet Count 129 10^3/cmm (130-400); Red Blood Count 3.34 10^6/uL (4.1-5.3); Red Cell Distribution Width 19.1 % (12.1-15.1)
[2021-05-29 04:11] LABS: Alanine Aminotransferase 15 U/L (0-41); Alkaline Phosphatase 108 IU/L (40-130); Anion Gap 16.3 (5-19); Aspartate Amino Transferase 11 U/L (0-40); Blood Urea Nitrogen 13 mg/dL (6-20); Calcium 7.6 mg/dL (8.5-10.5); Carbon Dioxide 25 mmol/L (22-29); Chloride 93 mmol/L (98-107); Globulin 3.3 g/dL (1.3-4.6); Glomerular Filtration Rate 11.7 mL/min (90-130); Glucose 100 mg/dL (65-115); Magnesium 1.9 mg/dL (1.7-2.3); Osmolality Calculated 270 mOsm/kg (285-295); Phosphorus 4.9 mg/dL (2.5-4.5); Potassium 4.3 mmol/L (3.5-5.1); Sodium 130 mmol/L (136-145); Total Bilirubin 0.3 mg/dL (0.15-1.2); Total Protein 6.3 g/dL (6.6-8.7)
[2021-05-29] MEDS: ondansetron 2 mg/ML SDV 2 mL 4 MG IVP ×4 (07:52→21:49)
[2021-05-29] MEDS: dexamethasone 10 mg/mL INJ 6 MG IVP (08:22)
[2021-05-29] MEDS: isosorbide mononitrate ER 60 mg Tablet PO (08:22)
[2021-05-29] MEDS: cloNIDine 0.1 mg Tablet 0.3 MG PO ×3 (08:23→20:31)
[2021-05-29] MEDS: minoxidil 10 mg Tablet 5 MG PO ×2 (08:23→17:09)
[2021-05-29] MEDS: remdesivir 200 MG in sodium chloride 0.9% (100 ml) 60 ML 100 MG IV (08:24)
[2021-05-29] MEDS: amlodipine 10 mg Tablet PO (08:24)
[2021-05-29] MEDS: carvedilol 25 mg Tablet PO ×2 (08:24→17:09)
--- NOTE | 2021-05-29 08:27 | PM.PN ---
Subjective Subjective: Interval history: pt only wants paracentesis from GI. dec edema. improved breathing. no julio. dec nausea. dec sob. + weak Medications: Reviewed: Yes Medication Review Details: Current Medications Acetaminophen (Acetaminophen 325 Mg Tablet) 650 mg PO Q6H PRN PRN Reason: Mild/Mod Pain Or Temp >/= 101 Albuterol/Ipratropium (Ipratropium-Albuterol 3 Ml Neb) 3 ml INHALATION Q6H.RESPIRATORY PRN PRN Reason: SHORTNESS OF BREATH Amlodipine Besylate (Amlodipine 10 Mg Tablet) 10 mg PO DAILY [facility] Last Admin: 05/29/21 08:24 Dose: 10 mg Documented by: Bisacodyl (Bisacodyl 5 Mg Tablet) 10 mg PO DAILY PRN; Protocol PRN Reason: Constipation (see protocol) Last Admin: 05/27/21 09:00 Dose: 10 mg Documented by: Carvedilol (Carvedilol 25 Mg Tablet) 25 mg PO BID [facility] Last Admin: 05/29/21 08:24 Dose: 25 mg Documented by: Clonidine HCl (Clonidine 0.1 Mg Tablet) 0.3 mg PO TID [facility] Last Admin: 05/29/21 08:23 Dose: 0.3 mg Documented by: Dexamethasone (Dexamethasone 10 Mg/Ml Inj) 6 mg IVP Q24H [facility] Last Admin: 05/29/21 08:22 Dose: 6 mg Documented by: Enalaprilat (Enalaprilat 1.25 Mg/Ml Inj) 1.25 mg IVP Q6H PRN PRN Reason: HYPERTENSION Last Admin: 05/28/21 05:15 Dose: 1.25 mg Documented by: Hydralazine HCl (Hydralazine 20 Mg/Ml Inj 1 Ml) 20 mg IVP Q6H PRN PRN Reason: HYPERTENSION Last Admin: 05/28/21 06:04 Dose: 20 mg Documented by: Hydralazine HCl (Hydralazine 50 Mg Tablet) 50 mg PO Q8H [facility] Last Admin: 05/29/21 08:22 Dose: 50 mg Documented by: Hydromorphone HCl (Hydromorphone 4 Mg Tablet) 2 mg PO Q6H [facility] Last Admin: 05/29/21 08:24 Dose: 2 mg Documented by: Ceftriaxone Sodium 2,000 mg/ (Sodium Chloride) 50 mls @ 100 mls/hr IV Q24H [facility]; Protocol Last Infusion: 05/28/21 21:21 Dose: Infused Documented by: Dextrose (D10w) 1,000 mls @ 100 mls/hr IV .Q10H [facility] Last Admin: 05/29/21 06:30 Dose: Not Given Documented by: Nitroglycerin/Dextrose (Nitroglycerin Drip) 50 mg in 250 mls @ 0 mls/hr IV .Q0M [facility]; Protocol Last Titration: 05/29/21 07:39 Dose: 0 mcg/min, 0 mls/hr Documented by: Dextrose (D10w) 1,000 mls @ 50 mls/hr IV .Q20H [facility] Last Admin: 05/29/21 01:18 Dose: 50 mls/hr Documented by: Labetalol HCl 300 mg/ Sodium (Chloride) 300 mls @ 0 mls/hr IV .Q0M [facility]; Protocol Last Admin: 05/27/21 08:29 Dose: 0.5 mg/min, 30 mls/hr Documented by: Esmolol HCl (Brevibloc Drip) 2,500 mg in 250 mls @ 0 mls/hr IV .Q0M [facility]; Protocol Last Admin: 05/29/21 06:53 Dose: 165 mcg/kg/min, 79.17 mls/hr Documented by: Albumin Human (Albumin) 12.5 gm in 50 mls @ 60 mls/hr IV PRN PRN PRN Reason: Hypotension and/or symptomatic Remdesivir 100 mg/ Sodium (Chloride) 100 mls @ 100 mls/hr IV Q24H [facility] Stop: 06/02/21 06:59 Remdesivir 200 mg/ Sodium (Chloride) 60 mls @ 100 mls/hr IV ONCE ONE Stop: 05/29/21 08:35 Last Admin: 05/29/21 08:24 Dose: 100 mls/hr Documented by: Isosorbide Mononitrate (Isosorbide Mononitrate Er 60 Mg Tablet) 60 mg PO DAILY [facility] Last Admin: 05/29/21 08:22 Dose: 60 mg Documented by: Minoxidil (Minoxidil 10 Mg Tablet) 5 mg PO BID [facility] Last Admin: 05/29/21 08:23 Dose: 5 mg Documented by: Naloxone HCl (Naloxone 0.4 Mg/Ml Sdv) 0.1 mg IVP Q2M PRN PRN Reason: OPIATERV Ondansetron HCl (Ondansetron 2 Mg/Ml Sdv 2 Ml) 4 mg IVP Q4H PRN PRN Reason: vomiting, or N/V if npo Last Admin: 05/29/21 07:52 Dose: 4 mg Documented by: Vitals/I&O/Wt Last Vital Signs Temp 98.2 F 05/29/21 04:15 Pulse 70 05/29/21 06:15 Resp 16 05/29/21 06:15 BP 152/80 05/29/21 08:23 Pulse Ox 97 05/29/21 06:15 05/28/21 05/29/21 05/29/21 22:59 06:59 14:59 Intake Total 1638.525 / 2882.031 2457.250 / 5339.281 7.05 / 7.05 Output Total 0 / 0 Balance 1638.525 / 2882.031 2457.250 / 5339.281 7.05 / 7.05 Weight last 48 hrs Weight 84.051 kg Weight 79.968 kg Weight 79.968 kg Physical Exam Narrative: EXAM NARRATIVE: less swollen, looks much improved, comfortable in bed vs noted- on nitro and esmolol drips heent- nc/at, eomi, anicteric neck supple lungs -improved air movement, dec dullness, dec wheezes heart reg abd soft, distended, ascites ext b/l 2+ edema neuro- a,a, o x 3 + avf Data : 05/29/21 02:55 05/29/21 02:55 Micro: Microbiology 05/26/21 19:08 Gram Stain - Final Peritoneal Fluid Body Fluid Culture - Preliminary A&P Assessment and plan (1) ESRD (end stage renal disease): see below Status: Acute Plan 40? yr old man ascites, ESRD, COVID-19+ 1. ESRD,? hyperkalemia, htn- s/p HD x 2days -repeat HD in am - 3.5 hrs, 3k, remove 3 l 2. htn- monitor w/ paracentesis - on coreg 25 bid, clonidine .3 tid, hydralazine - wean off drips 3. covid-19 on remdesivir 4. hyponatremia - should improve w/ hd -check tsh 4. bone- mineral-? metabolism of ESRD - monitor ca, phos, pth- phos binders -zemplar w/ hd 6. anemia-? hgb okay for ESRD and COVID-19 -hold epo w/ htn and covid -check iron studies - ferritin 1523 from covid- no iron seen and examined w/ RN- telehealth visit time spent 30 minutes discussed w/ RN, Attestations Medical Necessity Statement*: covid- 19, ascites, esrd, htn urgency Time Spent in Patient Care: 16 - 35 minutes (>than 50% of time spent in counselling and/or direct pt care on unit). Coding Level of Care Code Acute Dinker for Chg Fwd Diagnoses ESRD (end stage renal disease) N18.6
--- NOTE | 2021-05-29 10:35 | PC.CHAP ---
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 [] Patient/Family/Request visit [] Outpatient visit [] Follow-up visit [] Physician referral [] Code/Alert [x] Routine visit [] Staff referral [] Actively dying [] Patient sleeping [] Family support [] [] Out of room [] Palliative care [] [] Receiving care in room [] Pre-surgical visit [] Trauma [] Long length of stay [x] ICU visit [] Other: Relational/Emotional Strength [] Patient feels connected with others/family/visitors/staff [] Distress [] Loneliness/isolation [] Abandonment Spirituality of Patient [] Person of Ct [] Attends Shinto of their Ct [] Believes in Prayer [] Reads Bible or Nondenominational materials [] There are Spiritual issues to be addressed Generator Technician Interventions [x] Prayer [] Active listening [] Non-anxious presence [] Spiritual/emotional support [] Crisis/trauma care [] Spiritual counseling [] Bereavement support [] Provided bereavement packet [] Provided Bible/devotional materials [] Provided toy/stuffed animal, coloring book to patient or family member [] Provided Communion [] Anointing/[place] [] Salvation [x] Completed spiritual assessment [] Other: Impact on Illness or Injury [] Angry [] Fearful [] Anxious [] Often cries [] Exhaustion [] Unable to work [] Unable to attend jewish [] Unable to walk/stand [] Unable to read [] Unable to drive [] Unable to eat/drink [] Unable to sleep [] Unable to be with family [] Patient intubated [] Other: Summary Time spent with patient
--- NOTE | 2021-05-29 10:47 | US_ITS ---
WS: [id number] ULTRASOUND-GUIDED PARACENTESIS CLINICAL INFORMATION: sbp COMPARISON: None. Procedure Informed consent: The risks, benefits, and alternatives of the procedure were discussed with the mariah ent. Verbal and written consent was obtained. Timeout: A timeout was performed to confirm the correct patient, procedure, and site. Preparation: A suitable skin site was identified. The patient was prepped and draped in usual sterile fashion. Lidocaine 1% was used for local anesthesia. Catheter: 4 [place] One-step Yueh catheter. Side: Left Lower quadrant. Fluid Volume: 3300 ml Color: Clear yellow DISPOSITION: Discarded safely. Complications: None. US/US paracentesis abd w [id number] IMPRESSION: Uncomplicated ultrasound-guided paracentesis. Removal of 3300 cc
--- NOTE | 2021-05-29 14:00 | P.PN_ITS ---
Subjective Subjective: Interval history: Blood pressure improved, nitro drip has been turned off, esmolol drip to region weaned off Patient is endorsing feeling better, Inadequate sample at the time of admission for paracentesis, requested abdominal paracentesis for diagnostic purposes Neutropenia noted Febrile Mentation is better Today requiring 2 L nasal cannula Abdominal pain is better No bowel movement yet Vitals/I&O/Wt Last Vital Signs Temp 98.2 F 05/29/21 04:15 Pulse 73 05/29/21 13:40 Resp 14 05/29/21 12:00 BP 161/108 05/29/21 12:00 Pulse Ox 99 05/29/21 12:00 05/28/21 05/29/21 05/29/21 22:59 06:59 14:59 Intake Total 1638.525 / 2882.031 2457.250 / 5339.281 1291.009 / 1291.009 Output Total 0 / 0 3300 / 3300 Balance 1638.525 / 2882.031 2457.250 / 5339.281 -2007.991 / -2007.991 Weight last 48 hrs Weight 84.051 kg Weight 79.968 kg Weight 79.968 kg Physical Exam Narrative: EXAM NARRATIVE: Patient's mentation has improved He is awake and alert Able to answer all my question Nonfocal neuro exam No active signs of encephalopathy Abdominal pain right lower quadrant, hepatomegaly Tenderness to deep palpation , Ascites Venous stasis dermatitis Nonpitting edema Lymphedema Saturating well on 2 L nasal cannula EOMI, PERRLA Data : 05/29/21 02:55 05/29/21 02:55 Micro: Microbiology 05/26/21 19:08 Gram Stain - Final Peritoneal Fluid Body Fluid Culture - Preliminary A&P Assessment and plan (1) Diastolic heart failure: Status: Acute (2) Hyponatremia: Status: Acute (3) Acute exacerbation of chronic obstructive airways disease: Status: Acute (4) Hypertensive emergency: Status: Acute (5) Hyperkalemia: Status: Acute (6) Abdominal distension: Status: Acute (7) Abdominal ascites: Status: Acute (8) COVID: Status: Acute (9) ESRD (end stage renal disease): Status: Acute (10) Anemia: Status: Acute Plan Hypertensive emergency: Nitro drip has been turned off, esmolol drip to be weaned off today Continue p.o. antibiotic regimen Appreciate nephro recommendation SBP: Requested IR paracentesis Continue ceftriaxone Afebrile Neutropenia noted End-stage renal disease Dialysis as per nephro Anemia of chronic disease hemoglobin stable Chronic hyponatremia related to hypervolemia: Patient does not make any urine Dialysis would help COVID-19 related hypoxia currently on 2 L cannula Remdesivir and Decadron Ultrasound-guided paracentesis 3 L out Albumin 3.0 Attestations Medical Necessity Statement*: Plan to discharge patient in next 48 hours, he is refusing [facility], Time Spent in Patient Care: 20mins Coding Level of Care Code 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
[2021-05-29 14:46] LABS: Apprearance, Body Fluid CLEAR; Body Fluid Polynuclear #Cells 0.006; Body Fluid WBC 134 /uL; Color, Body Fluid AMBER; Monocytes # Body Fluid 0.128; PATH Referral YES
[2021-05-29] MEDS: esmolol drip 2,500 MG/250 ML PREMIX 57.58 MG IV (16:50)
--- NOTE | 2021-05-29 17:59 | PC.NURSE ---
PT sitting up in bed, c/o nausea multiple times today. Zofran given several times. C/o some abd pain. Paracentesis performed per MD, 3300ml fluid obtained. Samples sent to lab. Pt AAOx4. VSS. Brevibloc drip titrated down throughout shift. Nitro gtt stopped this AM. No UOP. Will monitor.
[2021-05-29] MEDS: cefTRIAXone 2,000 MG in sodium chloride 0.9% (plus) 50 ML 100 MG IV (20:31)
[2021-05-29] MEDS: oxyCODONE 5 mg IR Tab/Cap 10 MG PO (21:49)
[2021-05-29] MEDS: esmolol drip 2,500 MG/250 ML PREMIX 47.98 MG IV (21:52)
--- NOTE | 2021-05-29 22:03 | PC.NURSE ---
pt c/o of ongoing heartburn and nausea, no emesis observed; requesting antiemetic more frequently that is currently ordered along with request for something for heartburn ; no antacid, H2 or PPI currently ordered. notified dr Umana, on-call hospitalist, of pt c/o and request. new orders received.
[2021-05-29] MEDS: famotidine 20 mg Tablet 40 MG PO (22:09)
[2021-05-29] MEDS: hyDRALAzine 20 mg/mL INJ 1 mL IVP (23:53)
--- NOTE | 2021-05-29 23:58 | PC.NURSE ---
Pt BP elevated at 209/88 at this time, confirmed thru repeat reading; pt nauseous and having dry heaves without emesis. Hydralizine IVP given PRN at this time.
[2021-05-30] VITALS (59 sets, daily range): BP systolic 112–196; BP diastolic 51–116; PULSE 66–94; RESP 9–27; TEMP 36.5–36.6; O2SAT 86–99; BMI 24.1
--- NOTE | 2021-05-30 00:43 | PC.NURSE ---
Pt c/o my heartburn is so bad, I can't stand it at this time; sitting up in bed rocking back and forth holding basin for potential emesis. initially had stated one time dose of famotidine had really helped . notified Dr Umana of pt c/o. new order received.
[2021-05-30] MEDS: hyDRALAzine 50 mg Tablet PO ×3 (00:58→17:04)
[2021-05-30] MEDS: lidocaine 2% viscous 15 ML, aluminum-mag hydrox-simethicon 30 ML, sucralfate oral liq 1 GM PO (00:58)
[2021-05-30] MEDS: ondansetron 2 mg/ML SDV 2 mL 4 MG IVP (02:37)
[2021-05-30] MEDS: esmolol drip 2,500 MG/250 ML PREMIX 47.98 MG IV (02:54)
[2021-05-30 03:44] LABS: Hematocrit 29.9 % (42.0-52.0); Hemoglobin 9.4 g/dL (11.7-16.6); Lymphocytes # 0.3 10^3/uL (0.8-4.8); Mean Corpuscular HGB Conc 31.4 g/dL (30.0-36.0); Mean Corpuscular Hemoglobin 27.1 pg (28.0-34.0); Mean Corpuscular Volume 86.2 fl (80-94); Mean Platelet Volume 10.3 fL (7.4-10.4); Monocytes # 0.2 10^3/uL (0.2-0.9); Monocytes % 5.4 %; Neutrophils % 86.3 %; Nucleated Red Blood Cells % 0 %; Platelet Count 148 10^3/cmm (130-400); Red Blood Count 3.47 10^6/uL (4.1-5.3); White Blood Count 3.1 10^3/uL (4.0-10.0)
[2021-05-30 04:18] LABS: Alanine Aminotransferase 12 U/L (0-41); Albumin Level 2.9 g/dL (3.5-5.2); Alkaline Phosphatase 101 IU/L (40-130); Anion Gap 21.9 (5-19); Aspartate Amino Transferase 9 U/L (0-40); Blood Urea Nitrogen 20 mg/dL (6-20); Calcium 8.9 mg/dL (8.5-10.5); Carbon Dioxide 20 mmol/L (22-29); Chloride 88 mmol/L (98-107); Globulin 3.5 g/dL (1.3-4.6); Glomerular Filtration Rate 9.5 mL/min (90-130); Glucose 108 mg/dL (65-115); Magnesium 1.7 mg/dL (1.7-2.3); Osmolality Calculated 263 mOsm/kg (285-295); Potassium 4.9 mmol/L (3.5-5.1); Sodium 125 mmol/L (136-145); Total Bilirubin 0.3 mg/dL (0.15-1.2); Total Protein 6.4 g/dL (6.6-8.7)
[2021-05-30] MEDS: remdesivir 100 MG in sodium chloride 0.9% (100 ml) 100 ML IV (05:39)
--- NOTE | 2021-05-30 07:18 | P.PN_ITS ---
Subjective Subjective: Interval history: seen and examined in ICU- feels better. remains on esmolol drip. s/p paracentesis and 3300 ml removed yesterday Medications: Reviewed: Yes Medication Review Details: Current Medications Acetaminophen (Acetaminophen 325 Mg Tablet) 650 mg PO Q6H PRN PRN Reason: Mild/Mod Pain Or Temp >/= 101 Albuterol/Ipratropium (Ipratropium-Albuterol 3 Ml Neb) 3 ml INHALATION Q6H.RESPIRATORY PRN PRN Reason: SHORTNESS OF BREATH Amlodipine Besylate (Amlodipine 10 Mg Tablet) 10 mg PO DAILY [facility] Last Admin: 05/29/21 08:24 Dose: 10 mg Documented by: Bisacodyl (Bisacodyl 5 Mg Tablet) 10 mg PO DAILY PRN; Protocol PRN Reason: Constipation (see protocol) Last Admin: 05/27/21 09:00 Dose: 10 mg Documented by: Carvedilol (Carvedilol 25 Mg Tablet) 25 mg PO BID [facility] Last Admin: 05/29/21 17:09 Dose: 25 mg Documented by: Clonidine HCl (Clonidine 0.1 Mg Tablet) 0.3 mg PO TID [facility] Last Admin: 05/29/21 20:31 Dose: 0.3 mg Documented by: Dexamethasone (Dexamethasone 10 Mg/Ml Inj) 6 mg IVP Q24H [facility] Last Admin: 05/29/21 08:22 Dose: 6 mg Documented by: Enalaprilat (Enalaprilat 1.25 Mg/Ml Inj) 1.25 mg IVP Q6H PRN PRN Reason: HYPERTENSION Last Admin: 05/28/21 05:15 Dose: 1.25 mg Documented by: Hydralazine HCl (Hydralazine 20 Mg/Ml Inj 1 Ml) 20 mg IVP Q6H PRN PRN Reason: HYPERTENSION Last Admin: 05/29/21 23:53 Dose: 20 mg Documented by: Hydralazine HCl (Hydralazine 50 Mg Tablet) 50 mg PO Q8H [facility] Last Admin: 05/30/21 00:58 Dose: 50 mg Documented by: Ceftriaxone Sodium 2,000 mg/ (Sodium Chloride) 50 mls @ 100 mls/hr IV Q24H [facility]; Protocol Last Infusion: 05/29/21 21:01 Dose: Infused Documented by: Dextrose (D10w) 1,000 mls @ 100 mls/hr IV .Q10H [facility] Last Admin: 05/29/21 17:11 Dose: Not Given Documented by: Nitroglycerin/Dextrose (Nitroglycerin Drip) 50 mg in 250 mls @ 0 mls/hr IV .Q0M [facility]; Protocol Last Titration: 05/29/21 07:39 Dose: 0 mcg/min, 0 mls/hr Documented by: Dextrose (D10w) 1,000 mls @ 50 mls/hr IV .Q20H [facility] Last Admin: 05/29/21 20:32 Dose: 50 mls/hr Documented by: Labetalol HCl 300 mg/ Sodium (Chloride) 300 mls @ 0 mls/hr IV .Q0M [facility]; Protocol Last Admin: 05/27/21 08:29 Dose: 0.5 mg/min, 30 mls/hr Documented by: Esmolol HCl (Brevibloc Drip) 2,500 mg in 250 mls @ 0 mls/hr IV .Q0M [facility]; Protocol Last Admin: 05/30/21 02:54 Dose: 100 mcg/kg/min, 47.98 mls/hr Documented by: Albumin Human (Albumin) 12.5 gm in 50 mls @ 60 mls/hr IV PRN PRN PRN Reason: Hypotension and/or symptomatic Remdesivir 100 mg/ Sodium (Chloride) 100 mls @ 100 mls/hr IV Q24H [facility] Stop: 06/02/21 06:59 Last Infusion: 05/30/21 06:39 Dose: Infused Documented by: Albumin Human (Albumin) 12.5 gm in 50 mls @ 60 mls/hr IV PRN PRN PRN Reason: Hypotension and/or symptomatic Isosorbide Mononitrate (Isosorbide Mononitrate Er 60 Mg Tablet) 60 mg PO DAILY [facility] Last Admin: 05/29/21 08:22 Dose: 60 mg Documented by: Minoxidil (Minoxidil 10 Mg Tablet) 5 mg PO BID [facility] Last Admin: 05/29/21 17:09 Dose: 5 mg Documented by: Naloxone HCl (Naloxone 0.4 Mg/Ml Sdv) 0.1 mg IVP Q2M PRN PRN Reason: OPIATERV Ondansetron HCl (Ondansetron 2 Mg/Ml Sdv 2 Ml) 4 mg IVP Q4H PRN PRN Reason: vomiting, or N/V if npo Last Admin: 05/30/21 02:37 Dose: 4 mg Documented by: Oxycodone HCl (Oxycodone 5 Mg Ir Tab/Cap) 10 mg PO Q4H PRN PRN Reason: SEVERE PAIN Last Admin: 05/29/21 21:49 Dose: 10 mg Documented by: Vitals/I&O/Wt Last Vital Signs Temp 98.6 F 05/29/21 23:45 Pulse 80 05/30/21 06:30 Resp 13 05/30/21 06:30 BP 141/72 05/30/21 06:30 Pulse Ox 94 05/30/21 06:30 05/29/21 05/30/21 05/30/21 22:59 06:59 14:59 Intake Total 1687.708 / 2978.717 581.499 / 3560.216 Output Total 0 / 3300 300 / 3600 Balance 1687.708 / -321.283 281.499 / -39.784 Weight last 48 hrs Weight 82.962 kg Weight 84.051 kg Physical Exam Narrative: EXAM NARRATIVE: less swollen, comfortable in bed vs noted- on esmolol drip heent- nc/at, eomi, anicteric neck supple lungs -improved air movement, dec dullness, dec wheezes heart reg abd soft, nt, less distended ext b/l 2+ edema neuro- a,a, o x 3 + avf Data : 05/30/21 03:07 05/30/21 03:07 Micro: Microbiology 05/26/21 19:08 Gram Stain - Final Peritoneal Fluid Body Fluid Culture - Preliminary A&P Assessment and plan (1) ESRD (end stage renal disease): see below Status: Acute Plan 40? yr old man ascites, ESRD, COVID-19+ 1. ESRD,? hyperkalemia, htn- s/p HD x 2days -repeat HD now - 3.5 hrs, 2k, remove 3 - 3.5 l 2. htn- improving s/p paracentesis - on esmolol, coreg 25 bid, clonidine .3 tid, hydralazine, minoxidil, enalapril. -wean off esmolol 3. covid-19 on remdesivir 4. hyponatremia - should improve w/ hd -check tsh 4. bone- mineral-? metabolism of ESRD - monitor ca, phos, pth- phos binders -zemplar w/ hd 6. anemia-? hgb okay for ESRD and COVID-19 -hold epo w/ htn and covid - ferritin 1523 from covid- no iron seen and examined w/ RN- telehealth visit time spent 30 minutes discussed w/ RN Attestations Medical Necessity Statement*: on esmolol dip for htn, covid-19, esrd Time Spent in Patient Care: 16 - 35 minutes (>than 50% of time spent in counselling and/or direct pt care on unit) . Coding Level of Care Code Acute Sales Agent Financial Report Service for Chg Fwd Diagnoses ESRD (end stage renal disease) N18.6
[2021-05-30] MEDS: minoxidil 10 mg Tablet 5 MG PO ×2 (08:01→17:05)
[2021-05-30] MEDS: cloNIDine 0.1 mg Tablet 0.3 MG PO ×3 (08:01→20:16)
[2021-05-30] MEDS: isosorbide mononitrate ER 60 mg Tablet PO (08:01)
[2021-05-30] MEDS: carvedilol 25 mg Tablet PO ×2 (08:02→17:05)
[2021-05-30] MEDS: amlodipine 10 mg Tablet PO (08:02)
[2021-05-30] MEDS: dexamethasone 10 mg/mL INJ 6 MG IVP (08:02)
[2021-05-30 08:40] LABS: Tumor Marker Alpha Fetoprotein 0.6 ng/mL (0-8.3)
[2021-05-30] MEDS: esmolol drip 2,500 MG/250 ML PREMIX 35.99 MG IV (09:32)
[2021-05-30] MEDS: oxyCODONE 5 mg IR Tab/Cap 10 MG PO (09:34)
--- NOTE | 2021-05-30 12:07 | PC.SOCIAL ---
IMM update IMM updated with patient's mother. Verbalized an understanding. Initialled, dated, timed, and placed in chart.
[2021-05-30] MEDS: guaiFENesin-dextromethorphan UDC 10 mL PO (17:16)
[2021-05-30] MEDS: paricalcitol 2 mcg/mL SDV 1 mL 3 MCG IV (17:46)
[2021-05-30] MEDS: dextrose 10% 1,000 ML 50 ML IV (17:59)
--- NOTE | 2021-05-30 18:21 | PC.NURSE ---
PT sitting up in bed. AAOx4, vss. Esmolol turned off at 1715. BP stable at this time. Dialysis completed at this time, 2500 off. Tolerated well. No other issues noted. Will monitor.
[2021-05-30] MEDS: cefTRIAXone 2,000 MG in sodium chloride 0.9% (plus) 50 ML 100 MG IV (20:15)
--- NOTE | 2021-05-30 20:26 | PM.PN ---
Subjective Subjective: Interval history: Patient is endorsing feeling slightly better, endorsing cough, abdominal pain present however slightly improved, SBP ruled out Requested alpha-fetoprotein, Paracentesis 05/29 Albumin to be given with dialysis When I asked patient what caused liver damage he was not able to answer he is denying drug abuse, family history of liver cirrhosis, alcohol abuse, Vitals/I&O/Wt Last Vital Signs Temp 97.9 F 05/30/21 08:01 Pulse 82 05/30/21 18:00 Resp 17 05/30/21 18:00 BP 158/79 05/30/21 18:00 Pulse Ox 95 05/30/21 18:00 05/30/21 05/30/21 05/30/21 06:59 14:59 22:59 Intake Total 581.499 / 3560.216 1517.549 / 2789.478 1974 / 2997.549 Output Total 300 / 3600 2500 / 2500 Balance 281.499 / -39.784 1517.549 / 1517.549 -1020 / 497.549 Weight last 48 hrs Weight 82.962 kg Weight 84.051 kg Physical Exam Narrative: EXAM NARRATIVE: Young male Malnourished Muscle mass loss Ascites Tender abdomen on deep palpation right quadrant Awake and alert Nonfocal neuro exam No signs of asterixis S1, S2 Venous stasis dermatitis Anasarca Data : 05/30/21 03:07 05/30/21 03:07 Micro: Microbiology 05/26/21 19:08 Gram Stain - Final Peritoneal Fluid Body Fluid Culture - Final 05/29/21 14:25 Gram Stain - Final Ascites Fluid A&P Assessment and plan (1) Diastolic heart failure: Status: Acute (2) Hyponatremia: Status: Acute (3) Hypertensive emergency: Status: Acute (4) Generalized abdominal pain: Status: Acute (5) Abdominal ascites: Status: Acute (6) COVID: Status: Acute (7) ESRD (end stage renal disease): Status: Acute (8) Hepatomegaly: Status: Acute Plan Recurrent ascites Hepatosplenomegaly SBP ruled out No organism, neutrophil less than 250 I would continue ceftriaxone for now Patient has hepatomegaly alpha-fetoprotein level ordered Lymphocytes noted on the paracentesis sample Malignancy has not been ruled out Patient is not sure what caused liver cirrhosis however no biopsy has been taken, TIPS never discussed with the patient Patient has child Bruner class B No asterixis My suspicion is high for hepatorenal syndrome, undiagnosed etiology for liver cirrhosis I am going to discuss this case with GI to see if he would benefit from TIPS Patient denied polysubstance abuse, alcohol abuse, hepatitis panel, HIV panel negative Hypertensive emergency: Esmolol being titrated Patient does look cachectic and malnourished appearance Anemia of chronic disease stable Hyponatremia related to hypervolemia End-stage renal disease appreciate nephro recommendations Attestations Medical Necessity Statement*: Continue medical management Time Spent in Patient Care: 30min Coding Level of Care Code Acute 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
[2021-05-30 22:43] LABS: Iron 46 ug/dL (59-158); Percent Saturation 24.5 % (20-50); Total Iron Binding Capacity 187 mcg/dl; Unsaturated Iron Binding 141 ug/dL (112-347)
[2021-05-30 22:55] LABS: Ferritin 1172 ng/mL (30-400)
[2021-05-31] VITALS (56 sets, daily range): BP systolic 99–157; BP diastolic 40–116; PULSE 62–77; RESP 8–21; TEMP 36.3–36.8; O2SAT 92–99; BMI 23.7
[2021-05-31] MEDS: guaiFENesin-dextromethorphan UDC 10 mL PO (00:55)
[2021-05-31] MEDS: hyDRALAzine 50 mg Tablet PO ×3 (00:55→17:16)
[2021-05-31] MEDS: remdesivir 100 MG in sodium chloride 0.9% (100 ml) 100 ML IV (05:17)
[2021-05-31 06:01] LABS: Alanine Aminotransferase 10 U/L (0-41); Alkaline Phosphatase 102 IU/L (40-130); Anion Gap 17.4 (5-19); Aspartate Amino Transferase 10 U/L (0-40); Blood Urea Nitrogen 16 mg/dL (6-20); Calcium 8.1 mg/dL (8.5-10.5); Carbon Dioxide 26 mmol/L (22-29); Chloride 91 mmol/L (98-107); Globulin 3.5 g/dL (1.3-4.6); Glomerular Filtration Rate 12.5 mL/min (90-130); Glucose 120 mg/dL (65-115); Magnesium 1.9 mg/dL (1.7-2.3); Osmolality Calculated 272 mOsm/kg (285-295); Phosphorus 5.8 mg/dL (2.5-4.5); Potassium 4.4 mmol/L (3.5-5.1); Sodium 130 mmol/L (136-145); Total Bilirubin 0.2 mg/dL (0.15-1.2); Total Protein 6.5 g/dL (6.6-8.7)
[2021-05-31] MEDS: oxyCODONE 5 mg IR Tab/Cap 10 MG PO ×2 (08:03→17:20)
[2021-05-31] MEDS: isosorbide mononitrate ER 60 mg Tablet PO (08:04)
[2021-05-31] MEDS: minoxidil 10 mg Tablet 5 MG PO ×2 (08:04→17:16)
[2021-05-31] MEDS: cloNIDine 0.1 mg Tablet 0.3 MG PO ×3 (08:04→20:25)
[2021-05-31] MEDS: carvedilol 25 mg Tablet PO ×2 (08:04→17:16)
[2021-05-31] MEDS: amlodipine 10 mg Tablet PO (08:04)
[2021-05-31] MEDS: dexamethasone 10 mg/mL INJ 6 MG IVP (08:05)
--- NOTE | 2021-05-31 09:37 | P.PN_ITS ---
Subjective Subjective: Interval history: This morning patient is stating that he does not want liver biopsy, I try to explain him why it is needed, He is adamant that he does not want to be transferred to any facility for TIPS or want liver biopsy Agreeable for treatment of Covid Off esmolol drip Blood pressure stable Still complaining of nonproductive cough which makes abdominal pain worse, 1 bowel movement Vitals/I&O/Wt Last Vital Signs Temp 97.6 F 05/31/21 08:00 Pulse 68 05/31/21 08:37 Resp 20 H 05/31/21 08:37 BP 118/53 05/31/21 08:30 Pulse Ox 97 05/31/21 08:37 05/30/21 05/31/21 05/31/21 22:59 06:59 14:59 Intake Total 1680.2 / 3197.749 460 / 3657.749 480 / 480 Output Total 2500 / 2500 0 / 2500 Balance -819.8 / 697.749 460 / 1157.749 480 / 480 Weight last 48 hrs Weight 81.511 kg Weight 82.962 kg Physical Exam Narrative: EXAM NARRATIVE: Patient is awake and alert On 2 L nasal cannula Abdomen soft tender in the right quadrants Bowel sound present No active signs of hepatic encephalopathy Nonfocal neuro exam Nonproductive cough Venous stasis dermatitis S1, S2 sinus rhythm Data : 05/30/21 03:07 05/31/21 05:00 Micro: Microbiology 05/26/21 19:08 Gram Stain - Final Peritoneal Fluid Body Fluid Culture - Final 05/29/21 14:25 Gram Stain - Final Ascites Fluid A&P Assessment and plan (1) Diastolic heart failure: Status: Acute (2) Hyponatremia: Status: Acute (3) ESRD (end stage renal disease): Status: Acute (4) Anemia: Status: Acute (5) Abdominal ascites: Status: Acute (6) Abdominal distension: Status: Acute (7) Nausea & vomiting: Status: Acute (8) Generalized abdominal pain: Status: Acute (9) Hyperkalemia: Status: Acute (10) Hypertensive emergency: Status: Acute (11) Acute exacerbation of chronic obstructive airways disease: Status: Acute Plan Hypertensive emergency: Off esmolol drip today Hepatomegaly, ascites, 3300 cc drained, child Bruner score B, a Candidate for liver transplant and TIPS however patient refused to be transferred to higher level of care He also refused liver biopsy COVID-19 related hypoxia continue remdesivir and Decadron currently on 2 L Electrolyte imbalance: Resolved Hyponatremia improved with dialysis I have started liver cirrhosis work-up, he is HIV and hepatitis panel negative Patient denies alcohol abuse, polysubstance abuse Full code Renal dialysis diet DVT prophylaxis to be started today Attestations Medical Necessity Statement*: Transfer out of ICU for stay stable Time Spent in Patient Care: 15 Coding Level of Care Code Acute Meat Cutting Teacher for Chg Fwd Diagnoses Diastolic heart failure I50.30 Hyponatremia E87.1 ESRD (end stage renal disease) N18.6 Anemia D64.9 Abdominal ascites R18.8 Abdominal distension R14.0 Nausea & vomiting R11.2 Generalized abdominal pain R10.84 Hyperkalemia E87.5 Hypertensive emergency I16.1 Acute exacerbation of chronic obstructive airways disease J44.1
--- NOTE | 2021-05-31 09:39 | USCV_ITS ---
Mal Gibbs Age: 40 Gender: M : 1980 Exam Date: 05/31/2021 10:36 Ordering Phys: Emanuel Nation MD Technologist: SUSIE Exam Location: [facility] [place] Indication: COVID isolation. c/o BLE edema. No hx DVT per patient. HISTORY: COVID isolation. c/o BLE edema. No hx DVT per patient. PROCEDURES: The venous duplex Doppler examination of both lower extremities was performed in the standard fashion. In addition, the posterior tibial veins and peroneal veins were evaluated. FINDINGS: Normal 2-D Doppler and augmentation and compressibility throughout the lower extremity venous structures. Additional imaging through the proximal calf veins also reveals no thrombus. Limited evaluation of the greater saphenous vein is patent with no thrombus. CONCLUSIONS No DVT bilateral lower extremities. Dr. Judie Peter DO (Electronically Signed) Final Date: 31 May 2021 11:36 S
[2021-05-31] MEDS: cefTRIAXone 1,000 MG in sodium chloride 0.9% (plus) 50 ML 100 MG IV (09:57)
--- NOTE | 2021-05-31 11:34 | P.PN_ITS ---
Subjective Subjective: Interval history: Mr. Gibbs is comfortable today. Esmolol infusion has been tapered off. His edema is significantly improved. No uremic symptoms. No other acute issues. Plan for dialysis tomorrow. Vitals/I&O/Wt Last Vital Signs Temp 97.6 F 05/31/21 08:00 Pulse 64 05/31/21 10:00 Resp 19 H 05/31/21 10:00 BP 132/65 05/31/21 10:00 Pulse Ox 96 05/31/21 10:00 05/30/21 05/31/21 05/31/21 22:59 06:59 14:59 Intake Total 1680.2 / 3197.749 460 / 3657.749 530 / 530 Output Total 2500 / 2500 0 / 2500 Balance -819.8 / 697.749 460 / 1157.749 530 / 530 Weight last 48 hrs Weight 81.511 kg Weight 82.962 kg Physical Exam Narrative: EXAM NARRATIVE: Constitutional: Awake, comfortable HEENT: Wet mucosa, no jvp, non icteric Lungs: Bilaterally clear without discernible wheeze, rales in all lung zones CVS: S1 S2, no murmurs Abdo: Soft, BS ok Ext 4: Minimal edema, peripheral perfusion with no cyanosis Neurological: Grossly non-focal Data : 05/30/21 03:07 05/31/21 05:00 Micro: Microbiology 05/29/21 14:25 Gram Stain - Final Ascites Fluid Body Fluid Culture - Preliminary 05/26/21 19:08 Gram Stain - Final Peritoneal Fluid Body Fluid Culture - Final A&P Assessment and plan (1) ESRD (end stage renal disease): Status: Acute Plan 1. ESRD Plan for dialysis tomorrow, 3K, ultrafiltration 2-3 L. Continue TTS schedule, Dose medication for GFR less than 15 on dialysis 2. Chemistry Noncritical minor aberration, continue to monitor. 3. Anemia Hemoglobin relatively stable at 9.4, continue to monitor 4. Hemodynamics, Just tapered off esmolol infusion, hemodynamics currently look nicely stable. 5. Liver cirrhosis Appreciate the need for liver biopsy/potential candidate for TIPS, at this time patient does not wish to proceed with this. I appreciate the input from Dr. Rios Salazar MD Nephrology [phone] Patient seen and examined via telemedicine, with the assistance of the bedside RN > 25 min spent in evaluation and mgmt of patient Attestations Medical Necessity Statement*: esrd mgmt Coding Level of Care Code Acute Underwriting Operations Manager for Chg Fwd Diagnoses ESRD (end stage renal disease) N18.6
[2021-05-31] MEDS: dextrose 10% 1,000 ML 50 ML IV (14:43)
--- NOTE | 2021-05-31 17:53 | PC.NURSE ---
PT sitting up in bed, VSS. AAOX4. Makes all needs known. C/O abd pain intermittently throughout the day. Pain meds given as ordered. On RA with no SOB. Uses BSC PRN. D10 infusing at 50ml/h per orders. BP have remained WNL throughout the shift. No other needs issued. Will monitor.
[2021-05-31] MEDS: ondansetron 2 mg/ML SDV 2 mL 4 MG IVP (19:14)
--- NOTE | 2021-05-31 20:00 | PC.NURSE ---
Temperature Extra blankets applied to patient.
[2021-06-01] VITALS (53 sets, daily range): BP systolic 96–148; BP diastolic 46–82; PULSE 59–71; RESP 8–23; TEMP 36.4–36.8; O2SAT 90–99; BMI 23.8
[2021-06-01] MEDS: hyDRALAzine 50 mg Tablet PO ×3 (01:21→16:29)
[2021-06-01] MEDS: oxyCODONE 5 mg IR Tab/Cap 10 MG PO ×2 (03:56→16:29)
[2021-06-01] MEDS: remdesivir 100 MG in sodium chloride 0.9% (100 ml) 100 ML IV (05:10)
[2021-06-01 06:30] LABS: Alanine Aminotransferase 7 U/L (0-41); Albumin Level 2.8 g/dL (3.5-5.2); Alkaline Phosphatase 100 IU/L (40-130); Anion Gap 17.7 (5-19); Aspartate Amino Transferase 9 U/L (0-40); Blood Urea Nitrogen 31 mg/dL (6-20); Calcium 8.2 mg/dL (8.5-10.5); Carbon Dioxide 25 mmol/L (22-29); Chloride 88 mmol/L (98-107); Globulin 3.5 g/dL (1.3-4.6); Glomerular Filtration Rate 9.2 mL/min (90-130); Glucose 102 mg/dL (65-115); Magnesium 1.9 mg/dL (1.7-2.3); Osmolality Calculated 269 mOsm/kg (285-295); Phosphorus 6.8 mg/dL (2.5-4.5); Potassium 4.7 mmol/L (3.5-5.1); Sodium 126 mmol/L (136-145); Total Bilirubin 0.2 mg/dL (0.15-1.2); Total Protein 6.3 g/dL (6.6-8.7)
--- NOTE | 2021-06-01 08:02 | PM.PN ---
Subjective Subjective: Interval history: No new issues. Remains weak but otherwise comfortable. Dialysis is pending for today. No extremity edema. Ascites is appreciated. Hemodynamics soft but stable Medications: Reviewed: Yes Medication Review Details: Current Medications Acetaminophen (Acetaminophen 325 Mg Tablet) 650 mg PO Q6H PRN PRN Reason: Mild/Mod Pain Or Temp >/= 101 Albuterol/Ipratropium (Ipratropium-Albuterol 3 Ml Neb) 3 ml INHALATION Q6H.RESPIRATORY PRN PRN Reason: SHORTNESS OF BREATH Amlodipine Besylate (Amlodipine 10 Mg Tablet) 10 mg PO DAILY [facility] Last Admin: 05/29/21 08:24 Dose: 10 mg Documented by: Bisacodyl (Bisacodyl 5 Mg Tablet) 10 mg PO DAILY PRN; Protocol PRN Reason: Constipation (see protocol) Last Admin: 05/27/21 09:00 Dose: 10 mg Documented by: Carvedilol (Carvedilol 25 Mg Tablet) 25 mg PO BID [facility] Last Admin: 05/29/21 17:09 Dose: 25 mg Documented by: Clonidine HCl (Clonidine 0.1 Mg Tablet) 0.3 mg PO TID [facility] Last Admin: 05/29/21 20:31 Dose: 0.3 mg Documented by: Dexamethasone (Dexamethasone 10 Mg/Ml Inj) 6 mg IVP Q24H [facility] Last Admin: 05/29/21 08:22 Dose: 6 mg Documented by: Enalaprilat (Enalaprilat 1.25 Mg/Ml Inj) 1.25 mg IVP Q6H PRN PRN Reason: HYPERTENSION Last Admin: 05/28/21 05:15 Dose: 1.25 mg Documented by: Hydralazine HCl (Hydralazine 20 Mg/Ml Inj 1 Ml) 20 mg IVP Q6H PRN PRN Reason: HYPERTENSION Last Admin: 05/29/21 23:53 Dose: 20 mg Documented by: Hydralazine HCl (Hydralazine 50 Mg Tablet) 50 mg PO Q8H [facility] Last Admin: 05/30/21 00:58 Dose: 50 mg Documented by: Ceftriaxone Sodium 2,000 mg/ (Sodium Chloride) 50 mls @ 100 mls/hr IV Q24H [facility]; Protocol Last Infusion: 05/29/21 21:01 Dose: Infused Documented by: Dextrose (D10w) 1,000 mls @ 100 mls/hr IV .Q10H [facility] Last Admin: 05/29/21 17:11 Dose: Not Given Documented by: Nitroglycerin/Dextrose (Nitroglycerin Drip) 50 mg in 250 mls @ 0 mls/hr IV .Q0M [facility]; Protocol Last Titration: 05/29/21 07:39 Dose: 0 mcg/min, 0 mls/hr Documented by: Dextrose (D10w) 1,000 mls @ 50 mls/hr IV .Q20H [facility] Last Admin: 05/29/21 20:32 Dose: 50 mls/hr Documented by: Labetalol HCl 300 mg/ Sodium (Chloride) 300 mls @ 0 mls/hr IV .Q0M [facility]; Protocol Last Admin: 05/27/21 08:29 Dose: 0.5 mg/min, 30 mls/hr Documented by: Esmolol HCl (Brevibloc Drip) 2,500 mg in 250 mls @ 0 mls/hr IV .Q0M [facility]; Protocol Last Admin: 05/30/21 02:54 Dose: 100 mcg/kg/min, 47.98 mls/hr Documented by: Albumin Human (Albumin) 12.5 gm in 50 mls @ 60 mls/hr IV PRN PRN PRN Reason: Hypotension and/or symptomatic Remdesivir 100 mg/ Sodium (Chloride) 100 mls @ 100 mls/hr IV Q24H [facility] Stop: 06/02/21 06:59 Last Infusion: 05/30/21 06:39 Dose: Infused Documented by: Albumin Human (Albumin) 12.5 gm in 50 mls @ 60 mls/hr IV PRN PRN PRN Reason: Hypotension and/or symptomatic Isosorbide Mononitrate (Isosorbide Mononitrate Er 60 Mg Tablet) 60 mg PO DAILY [facility] Last Admin: 05/29/21 08:22 Dose: 60 mg Documented by: Minoxidil (Minoxidil 10 Mg Tablet) 5 mg PO BID [facility] Last Admin: 05/29/21 17:09 Dose: 5 mg Documented by: Naloxone HCl (Naloxone 0.4 Mg/Ml Sdv) 0.1 mg IVP Q2M PRN PRN Reason: OPIATERV Ondansetron HCl (Ondansetron 2 Mg/Ml Sdv 2 Ml) 4 mg IVP Q4H PRN PRN Reason: vomiting, or N/V if npo Last Admin: 05/30/21 02:37 Dose: 4 mg Documented by: Oxycodone HCl (Oxycodone 5 Mg Ir Tab/Cap) 10 mg PO Q4H PRN PRN Reason: SEVERE PAIN Last Admin: 05/29/21 21:49 Dose: 10 mg Documented by: Vitals/I&O/Wt Last Vital Signs Temp 97.6 F 06/01/21 04:01 Pulse 60 06/01/21 06:00 Resp 11 L 06/01/21 06:00 BP 107/51 06/01/21 06:00 Pulse Ox 97 06/01/21 06:00 05/31/21 06/01/21 06/01/21 22:59 06:59 14:59 Intake Total 240 / 2250 340 / 2590 Balance 240 / 2250 340 / 2590 Weight last 48 hrs Weight 81.964 kg Weight 81.511 kg Physical Exam Narrative: EXAM NARRATIVE: Constitutional: Awake, comfortable HEENT: Wet mucosa, no jvp, non icteric Lungs: Bilaterally clear without discernible wheeze, rales in all lung zones CVS: S1 S2, no murmurs Abdo: Soft, BS ok Ext 4: Minimal edema, peripheral perfusion with no cyanosis Neurological: Grossly non-focal Data : 05/30/21 03:07 06/01/21 05:05 Micro: Microbiology 05/26/21 22:03 Blood Culture - Final Blood NO GROWTH AFTER 5 DAYS 05/26/21 22:00 Blood Culture - Final Blood NO GROWTH AFTER 5 DAYS 05/29/21 14:25 Gram Stain - Final Ascites Fluid Body Fluid Culture - Preliminary A&P Assessment and plan (1) ESRD (end stage renal disease): Status: Acute Plan 1. ESRD Plan for dialysis today, 3K, ultrafiltration 2-3 L. Continue TTS schedule, Dose medication for GFR less than 15 on dialysis 2. Chemistry Noncritical aberration, continue to monitor. Will improve with dialysis (ie sodium should come up) 3. Anemia Hemoglobin relatively stable at 9.4, continue to monitor 4. Hemodynamics, Just tapered off esmolol infusion, hemodynamics currently look nicely stable. 5. Liver cirrhosis Appreciate the need for liver biopsy/potential candidate for TIPS, at this time patient does not wish to proceed with this. I appreciate the input from Dr. Rios Salazar MD Nephrology [phone] Patient seen and examined via telemedicine, with the assistance of the bedside RN > 25 min spent in evaluation and mgmt of patient Attestations Medical Necessity Statement*: ESRD mgmt Coding Level of Care Code Acute Edger Tailer for Chg Fwd Diagnoses ESRD (end stage renal disease) N18.6
[2021-06-01] MEDS: dexamethasone 10 mg/mL INJ 6 MG IVP (08:11)
[2021-06-01] MEDS: amlodipine 10 mg Tablet PO (08:11)
[2021-06-01] MEDS: isosorbide mononitrate ER 60 mg Tablet PO (08:11)
[2021-06-01] MEDS: minoxidil 10 mg Tablet 5 MG PO ×2 (08:11→17:05)
[2021-06-01] MEDS: ondansetron 2 mg/ML SDV 2 mL 4 MG IVP ×2 (08:20→21:44)
[2021-06-01] MEDS: cefTRIAXone 1,000 MG in sodium chloride 0.9% (plus) 50 ML 100 MG IV (09:12)
[2021-06-01] MEDS: dextrose 10% 1,000 ML 50 ML IV (10:13)
--- NOTE | 2021-06-01 12:40 | PC.SOCIAL ---
IMM Updated Updated pt's mother on IMM, via phone. No questions voiced. Provided pt care nurse a copy to give to pt. Initialed, dated, & timed copy in chart.
--- NOTE | 2021-06-01 15:25 | PM.PN ---
Subjective Subjective: Interval history: Patient abdominal pain is slightly better, he experienced one episode of emesis after breakfast, now he is stating that he does not want to go to [place] I would like to get his liver biopsy done during this hospitalization, his blood pressure is stable on p.o. regimen, he is bradycardic held metoprolol and clonidine this morning Hold Coreg, nitro I will decrease dose of clonidine at lisinopril currently patient is on amlodipine, hydralazine, clonidine lower dose, Imdur, lisinopril On 2 L nasal cannula which transitioned down to room air later today Vitals/I&O/Wt Last Vital Signs Temp 97.5 F L 06/01/21 14:45 Pulse 62 06/01/21 14:45 Resp 18 06/01/21 14:45 BP 110/50 06/01/21 14:55 Pulse Ox 94 06/01/21 14:30 06/01/21 06/01/21 06/01/21 06:59 14:59 22:59 Intake Total 340 / 2590 1625 / 1625 Balance 340 / 2590 1625 / 1625 Weight last 48 hrs Weight 81.964 kg Weight 81.511 kg Physical Exam Narrative: EXAM NARRATIVE: Patient is much more awake and alert today Nonfocal neuro exam Unkept appearance S1, S2 Bilateral breath sounds currently on room air No audible stridor or wheezing Abdomen tender on deep palpation right quadrant Tender hepatomegaly Venous stasis dermatitis Data : 05/30/21 03:07 06/01/21 05:05 Micro: Microbiology 05/29/21 14:25 Gram Stain - Final Ascites Fluid Body Fluid Culture - Preliminary 05/26/21 22:03 Blood Culture - Final Blood NO GROWTH AFTER 5 DAYS 05/26/21 22:00 Blood Culture - Final Blood NO GROWTH AFTER 5 DAYS A&P Assessment and plan (1) Diastolic heart failure: Status: Acute (2) Hyponatremia: Status: Acute (3) Acute exacerbation of chronic obstructive airways disease: Status: Acute (4) Hypertensive emergency: Status: Acute (5) Hyperkalemia: Status: Acute (6) Generalized abdominal pain: Status: Acute (7) Nausea & vomiting: Status: Acute (8) Abdominal ascites: Status: Acute (9) COVID: Status: Acute (10) Hepatomegaly: Status: Acute (11) ESRD (end stage renal disease): Status: Acute Plan Hypertensive emergency: Off gtt. currently on p.o. regimen Currently on amlodipine, Imdur, lisinopril, hydralazine, low-dose of clonidine Hold off on Coreg and albuterol because of bradycardia End-stage renal disease Thursday SBP ruled out, patient has tender hepatomegaly, hepatic cancer not ruled out, patient is agreeable for biopsy, he does not want to be transferred to another facility, this will prolong his hospitalization, most likely IR will be able to do it on Thursday COVID-19 related hypoxia patient does require oxygen time to time, 2 L to room air Continue remdesivir and Decadron Full code Renal dialysis diet DVT prophylaxis on board No signs of DVT on venous Doppler Attestations Medical Necessity Statement*: Continue medical management, needs liver biopsy Time Spent in Patient Care: 15 minutes Coding Level of Care Code Acute Financial Planning Analyst for g Fwd Diagnoses Diastolic heart failure I50.30 Hyponatremia E87.1 Acute exacerbation of chronic obstructive airways disease J44.1 Hypertensive emergency I16.1 Hyperkalemia E87.5 Generalized abdominal pain R10.84 Nausea & vomiting R11.2 Abdominal ascites R18.8 COVID U07.1 Hepatomegaly R16.0 ESRD (end stage renal disease) N18.6
[2021-06-01] MEDS: heparin 5,000 unit/mL INJ 1 mL 5000 UNIT SUBCUT (16:03)
--- NOTE | 2021-06-01 16:42 | PC.NURSE ---
Dialysis nurse reports 2850ml fluid off
--- NOTE | 2021-06-01 17:52 | PC.NURSE ---
Pt resting in bed, AAOx4. VSS. Awaiting transfer to med surg. Attempted to call report but was unable as the nurse was waiting to transfer another pt. Pt dialyzed today, tolerated well. Bp has been stable all day. Denies any needs at this time. Requires pain meds occasionally. Will monitor
[2021-06-01] MEDS: cloNIDine 0.1 mg Tablet PO (21:44)
--- NOTE | 2021-06-01 22:24 | PC.NURSE ---
Report called to Tiff MONTESINOS on Med/Surg. Full report provided. All questions answered. Pt transferred via wheelchair by one nurse
[2021-06-02] VITALS (15 sets, daily range): BP systolic 106–143; BP diastolic 52–74; PULSE 0–77; RESP 15–20; TEMP 36.5–37.1; O2SAT 87–94
[2021-06-02] MEDS: oxyCODONE 5 mg IR Tab/Cap 10 MG PO ×2 (01:09→13:18)
[2021-06-02] MEDS: hyDRALAzine 50 mg Tablet PO ×3 (01:23→17:34)
[2021-06-02] MEDS: ondansetron 2 mg/ML SDV 2 mL 4 MG IVP ×3 (01:25→22:03)
[2021-06-02] MEDS: remdesivir 100 MG in sodium chloride 0.9% (100 ml) 100 ML IV (05:29)
[2021-06-02] MEDS: heparin 5,000 unit/mL INJ 1 mL 5000 UNIT SUBCUT (05:30)
[2021-06-02 05:42] LABS: Alanine Aminotransferase 6 U/L (0-41); Albumin Level 2.9 g/dL (3.5-5.2); Alkaline Phosphatase 103 IU/L (40-130); Blood Urea Nitrogen 27 mg/dL (6-20); Calcium 8.5 mg/dL (8.5-10.5); Carbon Dioxide 25 mmol/L (22-29); Chloride 93 mmol/L (98-107); Globulin 3.5 g/dL (1.3-4.6); Glomerular Filtration Rate 10.8 mL/min (90-130); Glucose 95 mg/dL (65-115); Magnesium 1.9 mg/dL (1.7-2.3); Osmolality Calculated 273 mOsm/kg (285-295); Phosphorus 5.8 mg/dL (2.5-4.5); Sodium 129 mmol/L (136-145); Total Bilirubin 0.3 mg/dL (0.15-1.2); Total Protein 6.4 g/dL (6.6-8.7)
[2021-06-02 06:47] LABS: INR 1.21 (0.8-1.2)
[2021-06-02 07:46] LABS: Anion Gap 15.4 (5-19); Aspartate Amino Transferase 13 U/L (0-40); Potassium 4.4 mmol/L (3.5-5.1)
[2021-06-02] MEDS: dexamethasone 10 mg/mL INJ 6 MG IVP (10:30)
[2021-06-02] MEDS: amlodipine 10 mg Tablet PO (10:31)
[2021-06-02] MEDS: cloNIDine 0.1 mg Tablet PO ×2 (10:31→21:46)
[2021-06-02] MEDS: lisinopril 20 mg Tablet PO (10:31)
[2021-06-02] MEDS: isosorbide mononitrate ER 60 mg Tablet PO (10:31)
[2021-06-02] MEDS: dextrose 10% 1,000 ML 50 ML IV (10:37)
[2021-06-02] MEDS: cefTRIAXone 1,000 MG in sodium chloride 0.9% (plus) 50 ML 100 MG IV (10:38)
--- NOTE | 2021-06-02 11:35 | P.PN_ITS ---
Subjective Subjective: Interval history: Adequate urine output, no overnight events, patient is waiting for liver biopsy tomorrow morning Vitals/I&O/Wt Last Vital Signs Temp 98.5 F 06/02/21 08:44 Pulse 72 06/02/21 08:44 Resp 15 06/02/21 08:44 BP 116/67 06/02/21 10:31 Pulse Ox 88 L 06/02/21 08:44 06/01/21 06/02/21 06/02/21 22:59 06:59 14:59 Intake Total 720 / 2345 1340 / 3685 50 / 50 Output Total 3050 / 3050 Balance -2330 / -705 1340 / 635 50 / 50 Weight last 48 hrs Weight 83.779 kg Weight 81.964 kg Physical Exam Narrative: EXAM NARRATIVE: Nonfocal neuro exam S1, S2 Abdomen slightly distended, tender right quadrant area EOMI, PERRLA No signs of meningitis Renasys dermatitis No active sign of cellulitis Nonlabored breathing O2 saturation 88% on room air Requires 2 L on ambulation Data : 05/30/21 03:07 06/02/21 04:52 Micro: Microbiology 05/29/21 14:25 Gram Stain - Final Ascites Fluid Body Fluid Culture - Preliminary A&P Assessment and plan (1) Abdominal ascites: Status: Acute (2) Abdominal distension: Status: Acute (3) Nausea & vomiting: Status: Acute (4) Generalized abdominal pain: Status: Acute (5) Hyperkalemia: Status: Acute (6) Acute exacerbation of chronic obstructive airways disease: Status: Acute (7) Hyponatremia: Status: Acute (8) Diastolic heart failure: Status: Acute (9) Hepatomegaly: Status: Acute (10) Hypertensive emergency: Status: Acute (11) COVID: Status: Acute Plan Hypertensive emergency: Improved currently doing well on p.o. regimen Tender hepatomegaly, patient agreeable for liver biopsy for tomorrow we will hold heparin, check INR Status post 300 cc paracentesis, no signs of SBP continue ceftriaxone 1 g daily COVID-19 currently doing well on room air however requires 2 L of oxygen on ambulation Continue Decadron, remdesivir ESRD Thursday, Next dialysis session tomorrow Full code N.p.o. after midnight DVT prophylaxis on hold for the procedure Child Bruner score B he is an ideal candidate for liver transplant and TIPS procedure however he is adamant that he would not go to [place] or [place] for higher level of care from this visit Ceruloplasmin, copper, JESÚS screen is pending AFP unremarkable Ferritin high, low iron, normal TIBC Attestations Medical Necessity Statement*: Continue medical management Time Spent in Patient Care: 15min Coding Level of Care Code Acute Group Chief Operator for Chg Fwd Diagnoses Abdominal ascites R18.8 Abdominal distension R14.0 Nausea & vomiting R11.2 Generalized abdominal pain R10.84 Hyperkalemia E87.5 Acute exacerbation of chronic obstructive airways disease J44.1 Hyponatremia E87.1 Diastolic heart failure I50.30 Hepatomegaly R16.0 Hypertensive emergency I16.1 COVID U07.1
[2021-06-02] MEDS: minoxidil 10 mg Tablet 5 MG PO ×2 (13:20→17:34)
--- NOTE | 2021-06-02 17:21 | PC.NURSE ---
Patient refused clonidine at 1500
[2021-06-02] MEDS: acetaminophen 325 mg Tablet 650 MG PO (22:12)
--- NOTE | 2021-06-02 23:25 | PC.NURSE ---
Patient refused to wear tele box
[2021-06-03] VITALS (16 sets, daily range): BP systolic 106–153; BP diastolic 55–84; PULSE 0–76; RESP 10–22; TEMP 36.4–37.3; O2SAT 92–100
[2021-06-03 05:59] LABS: Eosinophils % 0.2 %; Hematocrit 35.2 % (42.0-52.0); Hemoglobin 11.2 g/dL (11.7-16.6); Lymphocytes # 0.6 10^3/uL (0.8-4.8); Lymphocytes % 9.6 %; Mean Corpuscular HGB Conc 31.8 g/dL (30.0-36.0); Mean Corpuscular Hemoglobin 26.9 pg (28.0-34.0); Mean Corpuscular Volume 84.4 fl (80-94); Mean Platelet Volume 10.4 fL (7.4-10.4); Monocytes # 0.5 10^3/uL (0.2-0.9); Monocytes % 8.8 %; Neutrophils # 4.94 10^3/uL (1.8-7.7); Neutrophils % 80.6 %; Nucleated Red Blood Cells % 0 %; Platelet Count 236 10^3/cmm (130-400); Red Blood Count 4.17 10^6/uL (4.1-5.3); Red Cell Distribution Width 18.6 % (12.1-15.1); White Blood Count 6.1 10^3/uL (4.0-10.0)
[2021-06-03 06:09] LABS: INR 1.29 (0.8-1.2)
[2021-06-03 06:26] LABS: Alanine Aminotransferase 7 U/L (0-41); Albumin Level 2.9 g/dL (3.5-5.2); Alkaline Phosphatase 105 IU/L (40-130); Aspartate Amino Transferase 7 U/L (0-40); Blood Urea Nitrogen 43 mg/dL (6-20); Calcium 8.4 mg/dL (8.5-10.5); Carbon Dioxide 26 mmol/L (22-29); Chloride 89 mmol/L (98-107); Globulin 3.5 g/dL (1.3-4.6); Glomerular Filtration Rate 8.4 mL/min (90-130); Glucose 132 mg/dL (65-115); Osmolality Calculated 281 mOsm/kg (285-295); Sodium 129 mmol/L (136-145); Total Bilirubin 0.2 mg/dL (0.15-1.2); Total Protein 6.4 g/dL (6.6-8.7)
[2021-06-03] MEDS: dextrose 10% 1,000 ML 50 ML IV (06:34)
--- NOTE | 2021-06-03 09:33 | P.PN_ITS ---
Subjective Subjective: Interval history: weak, belly pain. dec n/v/f/c/julio/d/leg pains Medications: Reviewed: Yes Medication Review Details: Current Medications Acetaminophen (Acetaminophen 325 Mg Tablet) 650 mg PO Q6H PRN PRN Reason: Mild/Mod Pain Or Temp >/= 101 Last Admin: 06/02/21 22:12 Dose: 650 mg Documented by: Albuterol/Ipratropium (Ipratropium-Albuterol 3 Ml Neb) 3 ml INHALATION Q6H.RESPIRATORY PRN PRN Reason: SHORTNESS OF BREATH Amlodipine Besylate (Amlodipine 10 Mg Tablet) 10 mg PO DAILY [facility] Last Admin: 06/02/21 10:31 Dose: 10 mg Documented by: Bisacodyl (Bisacodyl 5 Mg Tablet) 10 mg PO DAILY PRN; Protocol PRN Reason: Constipation (see protocol) Last Admin: 05/27/21 09:00 Dose: 10 mg Documented by: Calcium Carbonate (Calcium Carbonate 500 Mg Chew Tablet) 500 mg PO Q4H PRN PRN Reason: INDIGESTION Carvedilol (Carvedilol 25 Mg Tablet) 25 mg PO BID [facility] Last Admin: 06/01/21 08:11 Dose: Not Given Documented by: Clonidine HCl (Clonidine 0.1 Mg Tablet) 0.1 mg PO TID [facility] Last Admin: 06/02/21 21:46 Dose: 0.1 mg Documented by: Dexamethasone (Dexamethasone 10 Mg/Ml Inj) 6 mg IVP Q24H [facility] Last Admin: 06/02/21 10:30 Dose: 6 mg Documented by: Guaifenesin/Dextromethorphan (Guaifenesin-Dextromethorphan Udc 10 Ml) 10 ml PO Q4H PRN PRN Reason: COUGH Last Admin: 05/31/21 00:55 Dose: 10 ml Documented by: Heparin Sodium (Porcine) (Heparin 5,000 Unit/Ml Inj 1 Ml) 5,000 unit SUBCUT Q12H [facility] Last Admin: 06/02/21 05:30 Dose: 5,000 unit Documented by: Hydralazine HCl (Hydralazine 50 Mg Tablet) 50 mg PO Q8H [facility] Last Admin: 06/03/21 01:23 Dose: Not Given Documented by: Nitroglycerin/Dextrose (Nitroglycerin Drip) 50 mg in 250 mls @ 0 mls/hr IV .Q0M [facility]; Protocol Last Titration: 06/02/21 11:02 Dose: Infused Documented by: Dextrose (D10w) 1,000 mls @ 50 mls/hr IV .Q20H [facility] Last Admin: 06/03/21 06:34 Dose: 50 mls/hr Documented by: Esmolol HCl (Brevibloc Drip) 2,500 mg in 250 mls @ 0 mls/hr IV .Q0M [facility]; Protocol Last Titration: 05/30/21 17:15 Dose: 0 mcg/kg/min, 0 mls/hr Documented by: Albumin Human (Albumin) 12.5 gm in 50 mls @ 60 mls/hr IV PRN PRN PRN Reason: Hypotension and/or symptomatic Ceftriaxone Sodium 1,000 mg/ (Sodium Chloride) 50 mls @ 100 mls/hr IV Q24H [facility]; Protocol Last Infusion: 06/02/21 11:08 Dose: Infused Documented by: Isosorbide Mononitrate (Isosorbide Mononitrate Er 60 Mg Tablet) 60 mg PO DAILY [facility] Last Admin: 06/02/21 10:31 Dose: 60 mg Documented by: Lisinopril (Lisinopril 20 Mg Tablet) 20 mg PO DAILY [facility] Last Admin: 06/02/21 10:31 Dose: 20 mg Documented by: Minoxidil (Minoxidil 10 Mg Tablet) 5 mg PO BID [facility] Last Admin: 06/02/21 17:34 Dose: 5 mg Documented by: Nadolol (Nadolol 20 Mg Tablet) 20 mg PO DAILY [facility] Last Admin: 06/01/21 08:12 Dose: Not Given Documented by: Naloxone HCl (Naloxone 0.4 Mg/Ml Sdv) 0.1 mg IVP Q2M PRN PRN Reason: OPIATERV Ondansetron HCl (Ondansetron 2 Mg/Ml Sdv 2 Ml) 4 mg IVP Q4H PRN PRN Reason: vomiting, or N/V if npo Last Admin: 06/02/21 22:03 Dose: 4 mg Documented by: Vitals/I&O/Wt Last Vital Signs Temp 98.9 F 06/03/21 04:00 Pulse 0 L 06/03/21 06:00 Resp 16 06/03/21 04:00 BP 133/61 06/03/21 04:00 Pulse Ox 93 06/03/21 04:00 06/02/21 06/03/21 06/03/21 22:59 06:59 14:59 Intake Total 240 / 530 850 / 1380 Balance 240 / 530 850 / 1380 Weight last 48 hrs Weight 84.368 kg Weight 83.779 kg Physical Exam Narrative: EXAM NARRATIVE: comfortable in bed vs noted heent- nc/at, eomi, anicteric neck supple lungs - dull bases, + wheezes heart reg, +NASEEM abd soft, nt, less distended, +BS ext b/l 2+ edema neuro- a,a, o x 2+ + avf Data : 06/03/21 05:31 06/03/21 05:31 Micro: Microbiology 05/29/21 14:25 Gram Stain - Final Ascites Fluid Body Fluid Culture - Final A&P Assessment and plan (1) ESRD (end stage renal disease): see below Status: Acute Plan 40? yr old man ascites, ESRD, COVID-19+ 1. ESRD,? hyperkalemia, htn- s/p HD x 2days -repeat HD now - 3.5 hrs, 3k - fluid removal as tolerated 2. htn- improving s/p paracentesis - dec meds 3. covid-19 -improving 4. hyponatremia - should improve w/ hd 5. for liver bx today 4. bone- mineral-? metabolism of ESRD - phos binders -zemplar w/ hd 6. anemia-? hgb okay for ESRD and COVID-19 -hold epo w/ htn and covid - ferritin 1523 from covid- no iron seen and examined w/ RN- telehealth visit time spent 30 minutes discussed w/ RN Attestations Medical Necessity Statement*: for liver bx, esrd, htn Time Spent in Patient Care: 16 - 35 minutes (>than 50% of time spent in counselling and/or direct pt care on unit) . Coding Level of Care Code Acute Merchandise Team Manager for Chg Fwd Diagnoses ESRD (end stage renal disease) N18.6
--- NOTE | 2021-06-03 09:44 | PC.NURSE ---
Held morning meds per GI Lab. BP was 134/67
--- NOTE | 2021-06-03 10:00 | US_ITS ---
WS: [id number] ULTRASOUND GUIDED BIOPSY LIVER HISTORY: HEPATOMEGALY, CIRRHOSIS Procedure, risks, and complications are explained to the patient. Consent was obtained. Skin is clean sed with ChloraPrep and anesthetized with 1% buffered lidocaine. Prior imaging studies and laboratory values are reviewed. Prior medications are reviewed. Procedure w as explained in detail to the patient including complications of bleeding and peritonitis. There is a small amount of ascites noted. Skin is closed with ChloraPrep and anesthetized with 1% buffered lidocaine. 20-gauge core needle biop sy is performed in the inferior RIGHT lobe of the liver. 3 core biopsies are performed without diffic ulty with a 20-gauge needle. A small needle was used due to the patient's liver disease and increased risk for bleeding. Patient did not experience any complications and will be observed for 2 hours pos t procedure for any complications or change in vital signs. Specimen is placed in formalin and sent to pathology. US/US biopsy liver [id number] IMPRESSION: 1. Ultrasound-guided core biopsy of the liver. 3 core biopsies are performed. No complications are encountered. 2. Specimen placed in formalin to be sent to pathology.
[2021-06-03] MEDS: sodium chloride 0.9% 1,000 ML 30 ML IV (10:05)
[2021-06-03] MEDS: fentaNYL 50 mcg/mL INJ 2mL 25 MCG IVP (10:40)
[2021-06-03 10:57] LABS: Ceruloplasmin 32 mg/dL (18-36)
--- NOTE | 2021-06-03 11:51 | PC.SOCIAL ---
IMM Update pg 2 of IMM updated and reviewed w/ patient. Copy provided and Copy in chart signed.
--- NOTE | 2021-06-03 12:08 | PC.NURSE ---
Addendum entered by Rossi Monzon LPN 06/03/21 12:34: dressing check was 123 Original Note: 1230 dressing to right abdomen dry/intact.
--- NOTE | 2021-06-03 12:32 | PC.NURSE ---
1230 dressing cont dry and intact.
--- NOTE | 2021-06-03 12:38 | PC.NURSE ---
1200 dressing to right abdomen dry/intact.
--- NOTE | 2021-06-03 12:41 | PM.PN ---
Subjective Subjective: Interval history: Patient does not make too much urine, there was an error on my previous progress note, his urine output was only 200 mL yesterday, no output today, plan for dialysis today and liver biopsy, spoke with IR as well Patient is agreeable and motivated for this biopsy diagnostic testing Vitals/I&O/Wt Last Vital Signs Temp 97.7 F 06/03/21 11:30 Pulse 67 06/03/21 11:30 Resp 18 06/03/21 11:30 BP 140/81 06/03/21 11:30 Pulse Ox 99 06/03/21 11:30 06/02/21 06/03/21 06/03/21 22:59 06:59 14:59 Intake Total 240 / 530 850 / 1380 Balance 240 / 530 850 / 1380 Weight last 48 hrs Weight 84.368 kg Weight 83.779 kg Physical Exam Narrative: EXAM NARRATIVE: Patient is sitting in his bed Saturating well on room air Abdomen nondistended, tender hepatomegaly No signs of active hepatic encephalopathy No signs of fluid overload Unkept appearance He is awake and alert Oriented to time place and person Nonfocal exam Data : 06/03/21 05:31 06/03/21 05:31 Micro: Microbiology 05/29/21 14:25 Gram Stain - Final Ascites Fluid Body Fluid Culture - Final A&P Assessment and plan (1) Hepatomegaly: Status: Acute (2) Diastolic heart failure: Status: Acute (3) Hyponatremia: Status: Acute (4) Hypertensive emergency: Status: Acute (5) Generalized abdominal pain: Status: Acute (6) Nausea & vomiting: Status: Acute (7) Abdominal distension: Status: Acute (8) Abdominal ascites: Status: Acute (9) COVID: Status: Acute (10) Arteriovenous fistula for hemodialysis in place, secondary: Status: Acute (11) ESRD (end stage renal disease): Status: Acute Plan There is plan for hemodialysis and liver biopsy today INR 1.2, platelet above 200,000 No overnight events He is not requiring oxygen Plan to discharge him home tomorrow I have asked him to follow-up with a operator cavity pump in [place] or [place] he is an ideal candidate for TIPS and liver transplant History of adamant that he does not want to be transferred during this hospitalization Agreeable for the biopsy Advance diet after the procedure Attestations Medical Necessity Statement*: Discharge tomorrow morning Time Spent in Patient Care: 20 minutes Coding Level of Care Code Acute Voip Network Technician for Chg Fwd Diagnoses Hepatomegaly R16.0 Diastolic heart failure I50.30 Hyponatremia E87.1 Hypertensive emergency I16.1 Generalized abdominal pain R10.84 Nausea & vomiting R11.2 Abdominal distension R14.0 Abdominal ascites R18.8 COVID U07.1 Arteriovenous fistula for hemodialysis in place, secondary Z99.2 ESRD (end stage renal disease) N18.6
[2021-06-03 13:02] LABS: Anti-Double Strand DNA AB <1 IU/mL; Jo-1 Antibody <1.0 NEG AI (<1.0 NEG); SM/RNP Antibodies <1.0 NEG AI (<1.0 NEG); SS-B/LA IGG <1.0 NEG AI (<1.0 NEG); Scleroderma Ab(Scl-70) Ab <1.0 NEG AI (<1.0 NEG); Ss-A/Ro Igg <1.0 NEG AI (<1.0 NEG)
--- NOTE | 2021-06-03 13:21 | PC.NURSE ---
1100 dressing dry and intact, no s/s of leaking, oozing, bruising, hematoma.
--- NOTE | 2021-06-03 13:24 | PC.NURSE ---
1130 dressing dry and intact, no s/s of leaking, oozing, bruising, hematoma.
[2021-06-03 14:48] LABS: Anti-Nuclear Antibody Screen NEGATIVE (NEGATIVE)
--- NOTE | 2021-06-03 19:46 | PC.NURSE ---
Patient off floor for procedures (liver biopsy/dialysis all day.) still out for procedure.106/55
--- NOTE | 2021-06-03 19:53 | PC.NURSE ---
Patient in dialysis. Was going to give Heparin but the woman doing dialysis said not to. She still had to pull the needles and he would bleed.
[2021-06-03] MEDS: heparin 5,000 unit/mL INJ 1 mL 5000 UNIT SUBCUT (21:45)
[2021-06-04] VITALS: BP 154/76; PULSE 76; RESP 17; TEMP 37.3; O2SAT 94
[2021-06-04] MEDS: ondansetron 2 mg/ML SDV 2 mL 4 MG IVP (03:16)
[2021-06-04 04:00] VITALS: BP 164/74; PULSE 79; RESP 16; TEMP 37.3; O2SAT 93
[2021-06-04] MEDS: calcium carbonate 500 mg Chew Tablet PO (05:31)
[2021-06-04 05:40] LABS: Basophils % 0.2 %; Eosinophils # 0.1 10^3/uL (0.0-0.8); Eosinophils % 1.2 %; Hematocrit 36.5 % (42.0-52.0); Hemoglobin 11.4 g/dL (11.7-16.6); Lymphocytes # 0.9 10^3/uL (0.8-4.8); Lymphocytes % 13.6 %; Mean Corpuscular HGB Conc 31.2 g/dL (30.0-36.0); Mean Corpuscular Hemoglobin 26.5 pg (28.0-34.0); Mean Corpuscular Volume 84.7 fl (80-94); Mean Platelet Volume 10.7 fL (7.4-10.4); Monocytes # 0.6 10^3/uL (0.2-0.9); Monocytes % 9.5 %; Neutrophils # 4.94 10^3/uL (1.8-7.7); Neutrophils % 74.9 %; Nucleated Red Blood Cells % 0 %; Platelet Count 237 10^3/cmm (130-400); Red Blood Count 4.31 10^6/uL (4.1-5.3); Red Cell Distribution Width 18.6 % (12.1-15.1); White Blood Count 6.6 10^3/uL (4.0-10.0)
[2021-06-04 06:03] LABS: Anion Gap 13.8 (5-19); Blood Urea Nitrogen 32 mg/dL (6-20); Calcium 8.3 mg/dL (8.5-10.5); Carbon Dioxide 27 mmol/L (22-29); Chloride 95 mmol/L (98-107); Glomerular Filtration Rate 10.4 mL/min (90-130); Glucose 73 mg/dL (65-115); Osmolality Calculated 279 mOsm/kg (285-295); Potassium 3.8 mmol/L (3.5-5.1); Sodium 132 mmol/L (136-145)
--- NOTE | 2021-06-04 08:17 | P.PN_ITS ---
Subjective Subjective: Interval history: WEAK, TIRED, NOT FEELING WELL, NAUSEA. NO SOB, NO CP, + ascites, dec edema, bp improving. Medications: Reviewed: Yes Medication Review Details: Current Medications Acetaminophen (Acetaminophen 325 Mg Tablet) 650 mg PO Q6H PRN PRN Reason: Mild/Mod Pain Or Temp >/= 101 Last Admin: 06/02/21 22:12 Dose: 650 mg Documented by: Albuterol/Ipratropium (Ipratropium-Albuterol 3 Ml Neb) 3 ml INHALATION Q6H.RESPIRATORY PRN PRN Reason: SHORTNESS OF BREATH Amlodipine Besylate (Amlodipine 10 Mg Tablet) 10 mg PO DAILY [facility] Last Admin: 06/03/21 19:45 Dose: Not Given Documented by: Bisacodyl (Bisacodyl 5 Mg Tablet) 10 mg PO DAILY PRN; Protocol PRN Reason: Constipation (see protocol) Last Admin: 05/27/21 09:00 Dose: 10 mg Documented by: Calcium Carbonate (Calcium Carbonate 500 Mg Chew Tablet) 500 mg PO Q4H PRN PRN Reason: INDIGESTION Last Admin: 06/04/21 05:31 Dose: 500 mg Documented by: Carvedilol (Carvedilol 25 Mg Tablet) 25 mg PO BID [facility] Last Admin: 06/01/21 08:11 Dose: Not Given Documented by: Guaifenesin/Dextromethorphan (Guaifenesin-Dextromethorphan Udc 10 Ml) 10 ml PO Q4H PRN PRN Reason: COUGH Last Admin: 05/31/21 00:55 Dose: 10 ml Documented by: Heparin Sodium (Porcine) (Heparin 5,000 Unit/Ml Inj 1 Ml) 5,000 unit SUBCUT Q12H [facility] Hydralazine HCl (Hydralazine 50 Mg Tablet) 50 mg PO Q8H [facility] Last Admin: 06/03/21 01:23 Dose: Not Given Documented by: Nitroglycerin/Dextrose (Nitroglycerin Drip) 50 mg in 250 mls @ 0 mls/hr IV .Q0M [facility]; Protocol Last Titration: 06/02/21 11:02 Dose: Infused Documented by: Dextrose (D10w) 1,000 mls @ 50 mls/hr IV .Q20H [facility] Last Admin: 06/03/21 06:34 Dose: 50 mls/hr Documented by: Albumin Human (Albumin) 12.5 gm in 50 mls @ 60 mls/hr IV PRN PRN PRN Reason: Hypotension and/or symptomatic Isosorbide Mononitrate (Isosorbide Mononitrate Er 60 Mg Tablet) 60 mg PO DAILY [facility] Last Admin: 06/03/21 19:45 Dose: Not Given Documented by: Lisinopril (Lisinopril 20 Mg Tablet) 20 mg PO DAILY [facility] Last Admin: 06/03/21 19:46 Dose: Not Given Documented by: Midazolam HCl (Midazolam 1 Mg/Ml Inj 2 Ml) 2 mg IVP PRN PRN PRN Reason: SEDATION Midazolam HCl (Midazolam 1 Mg/Ml Inj 2 Ml) 1 mg IVP PRN PRN PRN Reason: SEDATION Minoxidil (Minoxidil 10 Mg Tablet) 5 mg PO DAILY [facility] Nadolol (Nadolol 20 Mg Tablet) 20 mg PO DAILY [facility] Last Admin: 06/01/21 08:12 Dose: Not Given Documented by: Naloxone HCl (Naloxone 0.4 Mg/Ml Sdv) 0.1 mg IVP Q2M PRN PRN Reason: OPIATERV Ondansetron HCl (Ondansetron 2 Mg/Ml Sdv 2 Ml) 4 mg IVP Q4H PRN PRN Reason: vomiting, or N/V if npo Last Admin: 06/04/21 03:16 Dose: 4 mg Documented by: Vitals/I&O/Wt Last Vital Signs Temp 99.2 F 06/04/21 04:00 Pulse 79 06/04/21 04:00 Resp 16 06/04/21 04:00 BP 164/74 06/04/21 04:00 Pulse Ox 93 06/04/21 04:00 06/03/21 06/04/21 06/04/21 22:59 06:59 14:59 Intake Total 480 / 530 Balance 480 / 530 Weight last 48 hrs Weight 82.418 kg Weight 84.368 kg Physical Exam Narrative: EXAM NARRATIVE: comfortable in bed vs noted - BP improving heent- nc/at, eomi, anicteric neck supple lungs -good air movement b/l heart reg, +NASEEM abd soft, nt, less distended, +BS ext b/l improved leg edema neuro- a,a, o x 2+ + avf Data : 06/04/21 04:05 06/04/21 04:05 A&P Assessment and plan (1) ESRD (end stage renal disease): see below Status: Acute Plan 40? yr old man ascites, ESRD, COVID-19+ 1. ESRD- s/p HD yesterday -repeat HD in AM - 3.5 hrs, 2k - 3 l fluid removal as tolerated 2. htn- improving 3. covid-19 -improving 4. hyponatremia - slowly improving w/ hd 5. f/u liver bx done 06-03-21 6. bone- mineral-? metabolism of ESRD - phos binders -zemplar w/ hd 7. anemia-? hgb okay for ESRD and COVID-19 -hold epo w/ htn and covid also hgb 11 - ferritin 1523 from covid- no iron seen and examined w/ RN- telehealth visit time spent 25 minutes discussed w/ RN Attestations Medical Necessity Statement*: per medicine Time Spent in Patient Care: 16 - 35 minutes (>than 50% of time spent in counselling and/or direct pt care on unit) . Coding Level of Care Code Acute Hospital Insurance Representative for Cristi Diane Diagnoses ESRD (end stage renal disease) N18.6
[2021-06-04] MEDS: amlodipine 10 mg Tablet PO (08:32)
[2021-06-04] MEDS: lisinopril 20 mg Tablet PO (08:32)
[2021-06-04] MEDS: isosorbide mononitrate ER 60 mg Tablet PO (08:33)
--- NOTE | 2021-06-04 09:55 | PM.DCS ---
Discharge Providers Date of Admission: 05/27/21 03:14 Date of Discharge: June 04, 2021 Attending Provider at Admission: Carroll Hercules MD Attending Provider at Discharge: Emanuel Nation MD Primary Care Provider: Mal Junior Diagnoses at Discharge Discharge Diagnosis (1) ESRD (end stage renal disease): Status: Acute Reason for Visit Reason for Visit: body aches,sob Hospital Course Hospital Course Note done by Dr. Diomedes Resendez Deedee Gibbs is a 40 year old male with past medical history of end-stage renal disease dialysis dependent Thursday, hypertension, diastolic congestive heart failure, COPD, came in with chief complaint of generalized abdominal pain nausea, vomiting , fever, chills with sore throat, going on for the last 2 days. Upon arrival in the ER he was worked up for above-mentioned complaints. Pertinent imaging studies: CT abdomen pelvis w con: 1. Severe ascites 2. Abnormal enhancement pattern of the liver suggesting underlying liver disease. 3. Splenomegaly 4. Atrophic kidneys XR chest : Mild cardiomegaly. No acute infiltrate. Pertinent labs: WBC 3.3, H&H 10/ 32 , PLT : 107 , serum sodium 129, serum potassium 6.1, BUN/SCR : 32/8.8 Patient was given a dose of Zosyn in the ER. Diagnostic tap was attempted: With insufficient fluid: Hospital course Patient was admitted for management of hepatic encephalopathy, hypertensive emergency, he was kept on esmolol and labetalol drip which she required for at least 72 hours in the ICU, his blood pressure slowly started trending down, he was kept on multiple antihypertensives including clonidine and minoxidil, he was getting dialysis as per his schedule, he was not able to tell me what caused portal hypertension, hepatomegaly, I requested a liver biopsy which she initially refused however agreed to get it done during this hospitalization, liver biopsy was done on 06/03/2021, ceruloplasmin level normal, low iron, high ferritin, normal TIBC, HIV, hepatitis panel negative, JESÚS, SCL 70, double-stranded DNA antibodies negative, exact cause of hepatomegaly has not been identified yet. Alpha-fetoprotein level unremarkable. His signs and symptoms are consistent with hepatorenal syndrome which I believe is the reason for his end-stage renal disease, primary sclerosing cholangitis has not been ruled out, I advised patient to go to [facility] or [facility] hepatology service for TIPS as he is an ideal candidate for liver transplant and TIPS can be offered in the interim. Patient refused adamantly. He carries guarded prognosis, he does have hyponatremia with his hepatorenal syndrome and active COVID-19 he does have poor prognosis. Paracentesis was done, 3300 cc obtained, no signs of SBP. His ceftriaxone 2 g was de-escalate it 1 g. For his COVID-19 he was given Decadron and remdesivir, he was not requiring oxygen at rest or ambulation. Patient will be discharged on 06/04/2021 I have tried to call his PCP Dr. Barrientos's office to get him a referral with Dr. Kim information technology director at [facility], I was not able to get in touch with the nursing staff. Patient is reluctant to travel outside [place] and unfortunately there are no information technology director available here. In case he gets readmitted to the ER for his worsening of symptoms I would recommend transfer him to [place] hepatology service. Liver biopsy report is pending, pathologist called me and stated that he is not seeing any malignant cells. Final report is pending Physical Exam Narrative: EXAM NARRATIVE: Patient is sitting in his bed Saturating well on room air Abdomen nondistended, tender hepatomegaly No signs of active hepatic encephalopathy No signs of fluid overload Unkept appearance He is awake and alert Oriented to time place and person Nonfocal exam Discharge Data Studies Completed and Pending Completed Studies During Hospitalization Category Date Time Status CT abdomen pelvis w con* [id number] Urgent Cat Scan 05/26/21 16:04 Completed XR chest 1V portable [id number] Urgent Exams 05/26/21 16:25 [place] [id number] Routine Ultrasound 05/31/21 09:39 Completed US biopsy liver [id number] Routine Ultrasound 06/03/21 10:00 [place] [id number] Routine Ultrasound 05/29/21 10:47 Completed Pending at discharge Category Date Time Status Comprehensive Metabolic Panel AM LABS Lab 06/05/21 04:00 Ordered Comprehensive Metabolic Panel AM LABS Lab 06/06/21 04:00 Ordered Comprehensive Metabolic Panel AM LABS Lab 06/07/21 04:00 Ordered Copper Level Routine Lab 05/30/21 20:44 Received Phosphorus AM LABS Lab 06/05/21 04:00 Ordered Phosphorus AM LABS Lab 06/06/21 04:00 Ordered Phosphorus AM LABS Lab 06/07/21 04:00 Ordered Pathology: Surgical [PTH] Routine Pth 06/03/21 07:00 Ordered Pathology: Surgical [PTH] Routine Pth 06/03/21 07:00 Stop Req Radiology Impressions Abdomen/Pelvis CT 05/26/21 16:04 IMPRESSION: 1. Severe ascites 2. Abnormal enhancement pattern of the liver suggesting underlying liver disease. 3. Splenomegaly 4. Atrophic kidneys Chest X-Ray 05/26/21 16:25 IMPRESSION: Mild cardiomegaly. No acute infiltrate. Paracentesis Ultrasound 05/29/21 10:47 IMPRESSION: Uncomplicated ultrasound-guided paracentesis. Removal of 3300 cc Liver Biopsy Ultrasound 06/03/21 10:00 IMPRESSION: 1. Ultrasound-guided core biopsy of the liver. 3 core biopsies are performed. No complications are encountered. 2. Specimen placed in formalin to be sent to pathology. Laboratory Results WBC 6.6 10^3/uL (4.0-10.0) 06/04/21 04:05 RBC 4.31 10^6/uL (4.1-5.3) 06/04/21 04:05 Hgb 11.4 g/dL (11.7-16.6) L 06/04/21 04:05 Hct 36.5 % (42.0-52.0) L 06/04/21 04:05 MCV 84.7 fl (80-94) 06/04/21 04:05 MCH 26.5 pg (28.0-34.0) L 06/04/21 04:05 MCHC 31.2 g/dL (30.0-36.0) 06/04/21 04:05 RDW 18.6 % (12.1-15.1) H 06/04/21 04:05 Plt Count 237 10^3/cmm (130-400) 06/04/21 04:05 MPV 10.7 fL (7.4-10.4) H 06/04/21 04:05 Neut % (Auto) 74.9 % 06/04/21 04:05 Lymph % (Auto) 13.6 % 06/04/21 04:05 [place] % (Auto) 9.5 % 06/04/21 04:05 Eos % (Auto) 1.2 % 06/04/21 04:05 Baso % (Auto) 0.2 % 06/04/21 04:05 Neut # (Auto) 4.94 10^3/uL (1.8-7.7) 06/04/21 04:05 Lymph # (Auto) 0.9 10^3/uL (0.8-4.8) 06/04/21 04:05 [place] # (Auto) 0.6 10^3/uL (0.2-0.9) 06/04/21 04:05 Eos # (Auto) 0.1 10^3/uL (0.0-0.8) 06/04/21 04:05 Baso # (Auto) 0.0 10^3/uL (0.0-0.1) 06/04/21 04:05 Nucleated RBC % (auto) 0 % 06/04/21 04:05 Nucleated RBCs # 0.0 /100WBC 06/04/21 04:05 Differential Comment Yes 05/29/21 14:25 PT 16.50 SECONDS (12.1-14.9) H 06/03/21 05:31 INR 1.29 (0.8-1.2) H 06/03/21 05:31 APTT 40.2 SECONDS (23.9-36.7) H 05/26/21 17:35 Specimen Type Arterial 05/27/21 15:45 Sample Site Radial, right 05/27/21 15:45 ABG pH 7.35 (7.35-7.45) 05/27/21 15:45 ABG pCO2 40.7 mmHg (35-45) 05/27/21 15:45 ABG pO2 102.0 mmHg (80.0-100.0) H 05/27/21 15:45 ABG HCO3 22.3 mmol/L (22-26) 05/27/21 15:45 ABG Base Excess -3.2 mmol/L (-2.0-2.0) L 05/27/21 15:45 Alexei Test Pos 05/27/21 15:45 Hematocrit 29.6 % (42-52) L 05/27/21 15:45 O2 Delivery Device Nc 05/27/21 15:45 O2 Liters/Min 2.0 % 05/27/21 15:45 FiO2 28.0 % 05/27/21 15:45 Digital Field Service Technician ID Gd 05/27/21 15:45 Sodium 132 mmol/L (136-145) L 06/04/21 04:05 Potassium 3.8 mmol/L (3.5-5.1) 06/04/21 04:05 Chloride 95 mmol/L (98-107) L 06/04/21 04:05 Carbon Dioxide 27 mmol/L (22-29) 06/04/21 04:05 Anion Gap 13.8 (5-19) 06/04/21 04:05 BUN 32 mg/dL (6-20) H 06/04/21 04:05 Creatinine 6.1 mg/dL (0.7-1.2) H* 06/04/21 04:05 GFR Calculation 10.4 mL/min (90-130) L 06/04/21 04:05 Glucose 73 mg/dL (65-115) 06/04/21 04:05 POC Glucose 115 mg/dL (70-110) H 05/28/21 19:56 Calculated Osmolality 279 mOsm/kg (285-295) L 06/04/21 04:05 Lactic Acid 0.9 mmol/L (0.5-2.2) 05/27/21 08:00 Lactate 0.8 mmol/L (0.5-2.2) 05/26/21 17:35 Calcium 8.3 mg/dL (8.5-10.5) L 06/04/21 04:05 Phosphorus 5.8 mg/dL (2.5-4.5) H 06/02/21 04:52 Magnesium 1.9 mg/dL (1.7-2.3) 06/02/21 04:52 Iron 46 ug/dL (59-158) L 05/30/21 03:07 TIBC 187 mcg/dl 05/30/21 03:07 % Saturation 24.5 % (20-50) 05/30/21 03:07 Unsat Iron Binding 141 ug/dL (112-347) 05/30/21 03:07 Ferritin 1172 ng/mL (30-400) H 05/30/21 03:07 Total Bilirubin 0.2 mg/dL (0.15-1.2) 06/03/21 05:31 AST 7 U/L (0-40) 06/03/21 05:31 ALT 7 U/L (0-41) 06/03/21 05:31 Alkaline Phosphatase 105 IU/L (40-130) 06/03/21 05:31 Ammonia 26 umol/L (16-60) 05/27/21 17:58 Total Protein 6.4 g/dL (6.6-8.7) L 06/03/21 05:31 Albumin 2.9 g/dL (3.5-5.2) L 06/03/21 05:31 Globulin 3.5 g/dL (1.3-4.6) 06/03/21 05:31 Ceruloplasmin 32 mg/dL (18-36) 05/31/21 05:00 Lipase 31 U/L (13-60) 05/26/21 17:35 Tumor Marker AFP 0.6 ng/mL (0-8.3) 05/30/21 03:07 Procalcitonin 17.22 ng/mL (0-0.5) H 05/27/21 08:00 PTH Intact 646.0 pg/mL (15-65) H 05/28/21 10:50 Calcium (PTH Intact) 8.5 mg/dL (8.5-10.5) 05/28/21 10:50 Fluid Color Bonny 05/29/21 14:25 Fluid Appearance Clear 05/29/21 14:25 Fluid WBC 134 /uL 05/29/21 14:25 Fluid RBC 5.000 10^3/uL 05/29/21 14:25 Fld Polynuclear WBCs # 0.006 05/29/21 14:25 Fld Polynuclear WBCs % 4.500 % 05/29/21 14:25 Fl Mononucl WBCs #(Auto) 0.128 05/29/21 14:25 Fl Mononuclear % Auto 95.500 % 05/29/21 14:25 JESÚS Screen Negative (NEGATIVE) 05/31/21 05:00 TONIA-1 Antibody <1.0 neg AI (<1.0 NEG) 05/31/21 05:00 SS-A/Ro IgG Antibody <1.0 neg AI (<1.0 NEG) 05/31/21 05:00 SS-B/La IgG Antibody <1.0 neg AI (<1.0 NEG) 05/31/21 05:00 Anti-nRNP/Sm IgG Ab <1.0 neg AI (<1.0 NEG) 05/31/21 05:00 Scl-70 Scleroderma Ab <1.0 neg AI (<1.0 NEG) 05/31/21 05:00 Anti-ds DNA IgG Ab <1 IU/mL 05/31/21 05:00 Coronavirus 229E (PCR) Not detected (NOT DETECT) 05/26/21 17:15 Hep Bs Antigen Non-reactive (Nonreactive) 05/27/21 08:00 Hep Bs Antibody > 1000.0 (11.5-1000) H 05/27/21 08:00 Hepatitis C Antibody Non-reactive (Nonreactive) 05/27/21 08:00 SARS-CoV-2 (PCR) Detected (NOT DETECT) A 05/26/21 17:15 Vitals Last Vital Signs Temp 99.2 F 06/04/21 04:00 Pulse 79 06/04/21 04:00 Resp 16 06/04/21 04:00 BP 164/74 06/04/21 04:00 Pulse Ox 93 06/04/21 04:00 Discharge Plan Discharge Patient Disposition: Home Condition: Stable Prescriptions: New lisinopril 20 mg tablet 20 mg PO DAILY Qty: 60 3RF hydralazine 10 mg tablet 10 mg PO Q8H Qty: 60 2RF lactulose 10 gram/15 mL solution 10 g PO TID Qty: 946 5RF Xifaxan 550 mg tablet 550 mg PO BID Qty: 60 4RF Continued Incruse Ellipta 62.5 mcg/actuation blister with device 1 inh INHALATION DAILY 0RF minoxidil 2.5 mg tablet 2.5 mg PO BID 0RF pantoprazole 40 mg tablet,delayed release (DR/EC) 40 mg PO BID 0RF sevelamer carbonate [Renvela] 800 mg tablet See Rx Instructions .ROUTE .COMPLEX 0RF Rx Instructions: 4 TABS PO TID AND ONE TAB BID WITH SNACKS trazodone 50 mg tablet 50 mg PO BEDTIME PRN (Reason: Sleep) 0RF Rx Instructions: pt states he has this medication but doesnt take fluticasone propionate 50 mcg/actuation spray,suspension 2 spray INTRANASAL DAILY PRN (Reason: Allergy Symptoms) 0RF gentamicin 0.3 % drops 1 drp ophthalmic (eye) Q6H 0RF carvedilol 25 mg tablet 50 mg PO BID Qty: 60 3RF isosorbide mononitrate 60 mg tablet extended release 24 hr 60 mg PO QAM Qty: 60 3RF amlodipine 10 mg tablet 10 mg PO DAILY Qty: 2 3RF ProAir HFA 90 mcg/actuation Hfa Aerosol Inhaler 2 puff INHALATION QID PRN (Reason: Shortness Of Breath) Qty: 2 4RF Discontinued clonidine 0.3 mg/24 hr patch weekly 0.3 mg transdermal Q7D 0RF clonidine HCl 0.2 mg tablet See Rx Instructions .ROUTE .COMPLEX 0RF Rx Instructions: take 0.2mg po bid prn for sbp greater than 180 or dbp greater than 110 lisinopril 40 mg tablet 40 mg PO DAILY 0RF Discharge Orders: Discharge Order (Routine); Ordered 06/04/21 Ordered By: Emanuel Nation Referrals: Mal Junior [Primary Care Provider] - 06/07/21 10:05 am Elsie Kim MD [Referring] - 2 weeks (PLEASE GET APPOINMENT WITH DOCTOR IN [facility] FAXED FOR REFERRAL) Discharge Diet: Cardiac Discharge Activity: Increase activity as tolerated Patient Instructions: Lisinopril (By mouth), Hydralazine (By mouth), Hyponatremia (GEN), COVID-19 (Coronavirus Disease 2019) (DC), Opioid Safety Discharge Attestations Time Spent in Discharge Care*: less than 30 min Status at Discharge: Cognitive status at discharge: cognitively intact, Behavioral status at discharge: cooperative, Quality Metrics Clinical Quality Measures [ No reported AMI, CVA or VTE this stay] Coding Level of Care Code Acute Chg FW DC note Diagnoses ESRD (end stage renal disease) N18.6
--- NOTE | 2021-06-04 12:14 | PC.NURSE ---
Discharge paperwork discussed with patient. Verbalized understanding.
[2021-06-04 12:17] VITALS: BP 164/74; PULSE 79; RESP 16; TEMP 37.3; O2SAT 93
--- NOTE | 2021-06-04 12:20 | PC.NURSE ---
Jhonathan was called for patient and tried to call mother for last three hours. Tried to keep patient here to wait for ride. Patient would not wait any longer and walked out the door.
[2021-06-04 19:19] LABS: Copper Level 118 mcg/dL (70-175)
== END 2021-06-04 12:20 | disposition home or self-care (01) | DRG 177 ==
LOC: ER 19:34 → MEDSURG 05-27 00:43 → ER 05-27 02:37 → ER IP 05-27 07:53 → ICU 05-27 21:02 → MEDSURG 06-01 22:39
PROVIDERS: Emergency Medicine; Internal Medicine Nephrology; Radiology Diagnostic Radiology; Admitting Provider Internal Medicine; Emergency Provider Family Medicine; PCP Family Medicine; Visit Provider Internal Medicine
DX: U07.1 COVID-19 (principal); N18.6 End stage renal disease; I50.33 Acute on chronic diastolic (congestive) heart failure; I13.2 Hypertensive heart and chronic kidney disease with heart failure and with stage 5 chronic kidney disease, or end stage renal disease; E87.1 Hypo-osmolality and hyponatremia; R18.8 Other ascites; J44.1 Chronic obstructive pulmonary disease with (acute) exacerbation; Z99.2 Dependence on renal dialysis; F17.200 Nicotine dependence, unspecified, uncomplicated; E87.5 Hyperkalemia; I16.0 Hypertensive urgency; E16.1 Other hypoglycemia; K74.60 Unspecified cirrhosis of liver; D63.1 Anemia in chronic kidney disease
CPT/HCPCS: 36415; 36416; 36600; 47000; 49083; 71045; 74177; 76942; 80048; 80053; 80500; 82105; 82140; 82310; 82390; 82525; 82728; 82803; 82962; 83540; 83550; 83605; 83690; 83735; 83970; 84100; 84145; 85025; 85610; 85730; 86038; 86225; 86235; 86706; 86803; 87040; 87070; 87075; 87205; 87340; 87635; 88307; 88313; 88342; 89050; 90935; 93970; 96365; 96367; 96372; 96374; 96375; 99291; J0360; J0696; J1100; J1170; J1644; J1815; J2060; J2270; J2405; J2501; J2543; J3010; J3490; J7030; J7050; J7799; Q3014; Q9967

== ENCOUNTER 2021-06-10 07:30 | Inpatient (IN) | payer MEDICARE, MEDICAID, SELFPAY ==
[2021-06-10] VITALS (35 sets, daily range): BP systolic 154–221; BP diastolic 102–145; PULSE 95–117; RESP 8–24; TEMP 36.9–37.1; O2SAT 84–98; BMI 23.1
--- NOTE | 2021-06-10 07:37 | W.ED.GENADLT ---
HPI - General Adult General: Chief complaint: General Medical Stated complaint: LOWER EDEMA, DIALYSIS Time Seen by Provider: 06/10/21 07:37 History of Present Illness: 40-year-old male with a known history of end-stage renal disease as well as significant liver disease. He was recently hospitalized here for an extended period of time he comes in today complaining of significant swelling of his leg. He states his legs are swollen because he fell. He has been ambulatory. Later we found that he had not done his dialysis for the previous week. Patient has been very noncompliant in the past. Old records reviewed and they had recommended the patient to go to [place] however he has been refusing. Onset (ago): day(s) Location: lower extremity Severity: severe Quality: aching Pain Consistency: constant Relieving factors: rest Exacerbating factors: movement Associated symptoms: Reports confusion, decreased appetite, dyspnea, malaise, nausea, short of breath and weakness; Deny chest pain, cough, diaphoresis, fevers/chills, headache(s), rash, palpitations, seizures, syncope or vomiting Treatments prior to arrival: none Review of Systems Const: Reports: malaise; Denies: diaphoresis ENMT: Denies: throat pain, ear or mastoid pain, nasal discharge or nasal congestion Card: Reports: edema, swelling of feet/ankles, dyspnea on exertion and orthopnea; Denies: chest pain, palpitations or syncope Resp: Reports: dyspnea GI: Reports: nausea; Denies: vomiting : Denies: flank pain, dysuria, urinary frequency or urinary urgency Skin/Breast: Denies: rash Neuro: Reports: confusion; Denies: headache(s) [facility] PFSH: Medical History Abdominal ascites Acute diastolic CHF (congestive heart failure) Anasarca Anemia Anemia Anxiety with depression Arteriovenous fistula for hemodialysis in place, secondary Congestive heart failure COPD (chronic obstructive pulmonary disease) Current smoker Degenerative disc disease, lumbar End-stage renal disease on hemodialysis ESRD (end stage renal disease) Gross hematuria Hematuria Hemoptysis Hepatomegaly Hyperkalemia Hypertension Hypertensive emergency PHT (pulmonary hypertension) Surgical History H/O hand surgery Amputation right 2&3 fingers 2017 History of adenoidectomy Family History Father No problems noted. Other Hypertension Social History Smoking and tobacco status: current every day smoker Alcohol intake: never Marital status: Number of children: 3 Current occupational status: disabled History of recent travel: No Physical Exam Const: ORIENTATION/CONSCIOUSNESS: Yes awake HENMT: COMMON NORMALS: normocephalic, atraumatic and hearing grossly normal bilaterally HEAD & SCALP: normocephalic and atraumatic Neck/C-Spine: GENERAL: Yes JVD Resp: COMMON NORMALS: normal respiratory effort, No retractions and No use of accessory muscles AUSCULTATION: crackles (Bilaterally) Cardio: COMMON NORMALS: regular rate, regular rhythm and No murmurs present (Cardio) RATE: regular rate RHYTHM: regular rhythm GI: COMMON NORMALS: Soft to palpation AUSCULTATION: Yes normoactive bowel sounds PALPATION: Yes Soft to palpation, No Tenderness to palpation present (GI), No Guarding due to palpation present (GI), Yes Hepatomegaly present and Yes Splenomegaly present Extremity: GENERAL: Yes edema (Anasarca to the level of the umbilicus with presacral edema as well 3+ ruddy) Course Vital Signs: Vital signs: Vital Signs Temperature 98.5 F 06/10/21 22:11 Pulse Rate 83 06/11/21 06:00 Respiratory Rate 15 06/11/21 06:00 Blood Pressure 136/81 06/11/21 06:00 Pulse Oximetry 93 06/11/21 06:[address] [facility] - General Adult Medical Decision Making Patient has severe peaked T waves on his EKG. On initial evaluation his potassium came back at 8.6. He was started on Kayexalate sodium bicarb albuterol insulin and D50. Consulted nephrology for dialysis discussed with hospitalist orders written. Patient be admitted to the ICU. Medical Records I reviewed the patient's medical records. Lab Data I reviewed the patient's lab results. : 06/11/21 03:43 06/11/21 03:43 Radiology Impressions Chest X-Ray 06/10/21 07:51 IMPRESSION: 1. Very mild interstitial edema. 2. Mild cardiomegaly. 3. No pneumonia. Ankle X-Ray 06/10/21 07:52 IMPRESSION: Normal RIGHT ankle. Laboratory Results WBC 12.6 10^3/uL (4.0-10.0) H 06/10/21 08:01 RBC 3.59 10^6/uL (4.1-5.3) L 06/10/21 08:01 Hgb 9.9 g/dL (11.7-16.6) L 06/10/21 08:01 Hct 30.6 % (42.0-52.0) L 06/10/21 08:01 MCV 85.2 fl (80-94) 06/10/21 08:01 MCH 27.6 pg (28.0-34.0) L 06/10/21 08:01 MCHC 32.4 g/dL (30.0-36.0) 06/10/21 08:01 RDW 19.5 % (12.1-15.1) H 06/10/21 08:01 Plt Count 176 10^3/cmm (130-400) 06/10/21 08:01 MPV 11.1 fL (7.4-10.4) H 06/10/21 08:01 Neut % (Auto) 87.6 % 06/10/21 08:01 Lymph % (Auto) 3.2 % 06/10/21 08:01 [place] % (Auto) 8.1 % 06/10/21 08:01 Eos % (Auto) 0.0 % 06/10/21 08:01 Baso % (Auto) 0.2 % 06/10/21 08:01 Neut # (Auto) 11.04 10^3/uL (1.8-7.7) H 06/10/21 08:01 Lymph # (Auto) 0.4 10^3/uL (0.8-4.8) L 06/10/21 08:01 [place] # (Auto) 1.0 10^3/uL (0.2-0.9) H 06/10/21 08:01 Eos # (Auto) 0.0 10^3/uL (0.0-0.8) 06/10/21 08:01 Baso # (Auto) 0.0 10^3/uL (0.0-0.1) 06/10/21 08:01 Nucleated RBC % (auto) 0 % 06/10/21 08:01 Nucleated RBCs # 0.0 /100WBC 06/10/21 08:01 Sodium 133 mmol/L (136-145) L 06/10/21 08:01 Potassium 8.3 mmol/L (3.5-5.1) H* 06/10/21 08:01 Chloride 91 mmol/L (98-107) L 06/10/21 08:01 Carbon Dioxide 16 mmol/L (22-29) L 06/10/21 08:01 Anion Gap 34.3 (5-19) H 06/10/21 08:01 BUN 108 mg/dL (6-20) H* D 06/10/21 08:01 Creatinine 14.8 mg/dL (0.7-1.2) H* 06/10/21 08:01 GFR Calculation 3.7 mL/min (90-130) L 06/10/21 08:01 Glucose 71 mg/dL (65-115) 06/10/21 08:01 Calculated Osmolality 309 mOsm/kg (285-295) H 06/10/21 08:01 Calcium 9.3 mg/dL (8.5-10.5) 06/10/21 08:01 Total Bilirubin 1.6 mg/dL (0.15-1.2) H 06/10/21 08:01 Direct Bilirubin 1.00 mg/dL (0.00-0.30) H 06/10/21 08:01 AST 1103 U/L (0-40) H 06/10/21 08:01 ALT 471 U/L (0-41) H 06/10/21 08:01 Alkaline Phosphatase 155 IU/L (40-130) H 06/10/21 08:01 Ammonia 39 umol/L (16-60) 06/10/21 09:34 Total Protein 7.4 g/dL (6.6-8.7) 06/10/21 08:01 Albumin 3.8 g/dL (3.5-5.2) 06/10/21 08:01 Globulin 3.6 g/dL (1.3-4.6) 06/10/21 08:01 Critical Care Time Critical Care Time: Critical Care Time: Yes Total Critical Care Time: 40 Attestation: The high probability of a clinically significant, sudden or life threatening deterioration of the patient's cardiovascular and renal (severe hyperkalemia) required my full and direct attention, intervention and personal management. The critical care time is as shown. This time is in addition to time spent performing any reported procedures but includes the following: [x] Data and vital sign review and interpretation [x] Patient assessment, examination and intervention [x] Documentation [x] Medication orders and management Discharge Plan Discharge Patient Disposition: Admitted As Inpatient Admit Provider: Db Bauman Clinical Impression: Hyperkalemia, Hyponatremia, Hepatomegaly, Transaminitis, Troponin level elevated, Fluid overload, ESRD (end stage renal disease) Condition: Stable Coding Level of Care Code ED Halftone Operator for Cristi Diane
--- NOTE | 2021-06-10 07:51 | XR_ITS ---
WS: [id number] PORTABLE CHEST HISTORY: dyspnea/cough COMPARISON: 05/26/2021 Lungs are well-aerated. There is very mild interstitial edema with no pneumonia. Suspect the intersti tial thickening is related to edema and fluid overload. No pleural effusion or pneumothorax. Cardiac size: Mildly enlarged cardiac silhouette. Mediastinum/Aorta: Normal mediastinum. Healing rib fracture in the posterior RIGHT seventh rib. XR/XR chest 1V portable [id number] IMPRESSION: 1. Very mild interstitial edema. 2. Mild cardiomegaly. 3. No pneumonia.
--- NOTE | 2021-06-10 07:52 | XR_ITS ---
WS: [id number] LEFT ANKLE: 3 VIEW(S) TECHNIQUE: AP, oblique(s) and lateral. HISTORY: fall COMPARISON: None available. Normal alignment at the ankle. Well-corticated osseous densities at the medial and lateral malleolus. Probably from old remote fractures. No acute fracture is appreciated. No joint effusion or widening of the ankle mortise. No significant degenerative changes at the joint spaces. Mild soft tissue edema at the ankle. Peripheral vascular calcifications are noted in the anterior tib ial artery. XR/XR ankle LT min 3V* [id number] IMPRESSION: 1. No acute ankle fracture. 2. Bilateral well-corticated osseous densities probably related to prior injur ies. Cannot confirm acute fracture.
--- NOTE | 2021-06-10 07:52 | XR_ITS ---
WS: [id number] RIGHT ANKLE: 3 VIEW(S) TECHNIQUE: AP, oblique(s) and lateral. HISTORY: fall COMPARISON: None available. Normal anatomic alignment with no fracture or dislocation. No joint effusion or widening of the ankle mortise. No significant degenerative changes at the joint spaces. No soft tissue abnormality. XR/XR ankle RT min 3V* [id number] IMPRESSION: Normal RIGHT ankle.
[2021-06-10 08:06] LABS: Basophils % 0.2 %; Hematocrit 30.6 % (42.0-52.0); Hemoglobin 9.9 g/dL (11.7-16.6); Lymphocytes # 0.4 10^3/uL (0.8-4.8); Lymphocytes % 3.2 %; Mean Corpuscular HGB Conc 32.4 g/dL (30.0-36.0); Mean Corpuscular Hemoglobin 27.6 pg (28.0-34.0); Mean Corpuscular Volume 85.2 fl (80-94); Mean Platelet Volume 11.1 fL (7.4-10.4); Monocytes % 8.1 %; Neutrophils # 11.04 10^3/uL (1.8-7.7); Neutrophils % 87.6 %; Nucleated Red Blood Cells % 0 %; Platelet Count 176 10^3/cmm (130-400); Red Blood Count 3.59 10^6/uL (4.1-5.3); Red Cell Distribution Width 19.5 % (12.1-15.1); White Blood Count 12.6 10^3/uL (4.0-10.0)
--- NOTE | 2021-06-10 08:22 | PC.NURSE ---
Pt was seen in the ER last week. was told to go to Dialysis today. instead pt came here. Pt lower extremities swollen. pt states he does not know why did not go to dialysis today instead.
[2021-06-10 08:34] LABS: Anion Gap 34.3 (5-19); Calcium 9.3 mg/dL (8.5-10.5); Carbon Dioxide 16 mmol/L (22-29); Chloride 91 mmol/L (98-107); Glomerular Filtration Rate 3.7 mL/min (90-130); Glucose 71 mg/dL (65-115); Osmolality Calculated 309 mOsm/kg (285-295); Sodium 133 mmol/L (136-145)
[2021-06-10 08:38] LABS: Blood Urea Nitrogen 108 mg/dL (6-20); Potassium 8.3 mmol/L (3.5-5.1)
--- NOTE | 2021-06-10 08:48 | ECG_ITS ---
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 Measurements Intervals [place] Rate: 103 P: AK: QRS: -35 QRSD: 205 T: 76 QT: 429 QTc: 564 Interpretive Statements UNCERTAIN REGULAR RHYTHM LEFT AXIS DEVIATION [QRS AXIS < -30] INTRAVENTRICULAR CONDUCTION DELAY [130+ ms QRS DURATION] CRITICAL TEST RESULT Compared to ECG 03/01/2021 16:53:24 Left-axis deviation now present Intraventricular conduction delay now present Sinus rhythm no longer present Electronically Signed On 06-11-2021 5:16:06 TEACHER OF G[employer] by Rosalia Dia M.D. [id number]
[2021-06-10 09:00] LABS: Alanine Aminotransferase 471 U/L (0-41); Alkaline Phosphatase 155 IU/L (40-130); Aspartate Amino Transferase 1103 U/L (0-40); Total Bilirubin 1.6 mg/dL (0.15-1.2)
[2021-06-10] MEDS: promethazine 25 mg/mL SDV 1 mL IM (09:05)
[2021-06-10] MEDS: hyDRALAzine 20 mg/mL INJ 1 mL IVP (09:06)
[2021-06-10] MEDS: insulin regular-human 100 units/1 mL 10 UNIT IVP (09:07)
[2021-06-10] MEDS: calcium chloride 10% Syr 10 mL 2 GM IVP (09:10)
[2021-06-10] MEDS: sodium bicarbonate 8.4% 1 mEq/mL 50mL Syr 100 MEQ IVP (09:12)
[2021-06-10] MEDS: sodium polystyrene sulfonate 15 gm/60 mL Btl 45 GM PO (09:14)
[2021-06-10 09:18] LABS: Albumin Level 3.8 g/dL (3.5-5.2); Globulin 3.6 g/dL (1.3-4.6); Total Protein 7.4 g/dL (6.6-8.7)
[2021-06-10] MEDS: dextrose 50% syringe 50 mL IVP (09:26)
--- NOTE | 2021-06-10 09:57 | PC.PHAR ---
pt states he takes care of his own medications-pt states he hasnt taken any medications since he was discharged on 06/04/21-pt states his [facility] didnt have a pharmacist on duty so they couldnt release his medications-notes are made in the pharmacy comments medications entered are meds that he was discharged with and what the pharmacy has filled recently-
[2021-06-10 10:08] LABS: Ammonia 39 umol/L (16-60)
--- NOTE | 2021-06-10 10:09 | P.HP_ITS ---
Providers/Chief Complaint Admitting Physician: Db Ochoa Primary Care Provider: Mal Junior Chief Complaint: LOWER EDEMA, DIALYSIS History of Present Illness Mal Gibbs is a 40 year old male with end-stage renal disease who presents to the hospital with complaints of leg pain, swelling, and shortness of breath. He reports he has not had his dialysis in over 1 week, secondary to some transportation issues with the snow. It is not known how many runs that he missed last week, and history is somewhat difficult from him as he continually goes to sleep during the interview. I gather that he does not have any significant pain, no chest pain, no history of fevers. Recently discharged from the hospital June 04. At that time he had had a liver biopsy, and diagnosis of liver disease. Biopsy ultimately showed inflammation. In the emergency department he was given insulin and glucose, sodium bicarb, Kayexalate, calcium chloride for his hyperkalemia. He was given hydralazine for hypertension. There are notes from medicine reconciliation nurse that he has not taken any of his medications since discharge, but this will need to be confirmed from the pat ient after his sleepiness improves. Review of Systems General: Reports: ROS unobtainable due to mental status (Continues to fall asleep during interview. Difficult to obtain full review) Medications/Allergies Home Medications Medication Instructions Recorded Confirmed Last Taken Type umeclidinium 62.5 mcg/actuation 1 inh INHALATION DAILY 05/03/20 06/10/21 05/16/21 History blister powder for inhalation (Incruse Ellipta) minoxidil 2.5 mg tablet 2.5 mg PO BID 02/25/21 06/10/21 05/16/21 History pantoprazole 40 mg tablet,delayed 40 mg PO BID 02/25/21 06/10/21 05/16/21 History release sevelamer carbonate 800 mg tablet See Rx Instructions .ROUTE .COMPLEX 02/25/21 06/10/21 05/16/21 History (Renvela) fluticasone propionate 50 2 spray INTRANASAL DAILY PRN 05/27/21 06/10/21 Unknown History mcg/actuation nasal spray,suspension gentamicin 0.3 % eye drops 1 drp OPHTHALMIC (EYE) Q6H 05/27/21 06/10/21 Unknown History trazodone 50 mg tablet 50 mg PO BEDTIME PRN 05/27/21 06/10/21 Unknown History albuterol sulfate 90 mcg/actuation 2 puff INHALATION QID PRN #2 g 06/04/21 06/10/21 Unknown Rx aerosol inhaler (ProAir HFA) amlodipine 10 mg tablet 10 mg PO DAILY 06/10/21 06/10/21 Unknown History carvedilol 25 mg tablet 50 mg PO BID 06/10/21 06/10/21 Unknown History hydralazine 10 mg tablet 10 mg PO Q8H 06/10/21 06/10/21 Unknown History isosorbide mononitrate 60 mg 60 mg PO QAM 06/10/21 06/10/21 Unknown History tablet,extended release 24 hr lactulose 10 gram/15 mL oral 10 g PO TID 06/10/21 06/10/21 Unknown History solution lisinopril 20 mg tablet 20 mg PO DAILY 06/10/21 06/10/21 Unknown History rifaximin 550 mg tablet (Xifaxan) 550 mg PO BID 06/10/21 06/10/21 Unknown History Allergies Allergy/AdvReac Type Severity Reaction Status Date / Time nifedipine Allergy ALGY-Swell Verified 06/10/21 09:56 Lip/Tongue/Throat PFSH Acute PFSH: Medical History (Updated 06/10/21 @ 10:19 by Db Bauman MD) Abdominal ascites Acute diastolic CHF (congestive heart failure) Anasarca Anemia Anemia Anxiety with depression Arteriovenous fistula for hemodialysis in place, secondary Congestive heart failure COPD (chronic obstructive pulmonary disease) Current smoker Degenerative disc disease, lumbar End-stage renal disease on hemodialysis ESRD (end stage renal disease) Gross hematuria Hematuria Hemoptysis Hepatomegaly Hyperkalemia Hypertension Hypertensive emergency PHT (pulmonary hypertension) Surgical History H/O hand surgery Amputation right 2&3 fingers 2017 History of adenoidectomy Family History Father No problems noted. Other Hypertension Social History Smoking and tobacco status: current every day smoker Alcohol intake: never Marital status: Number of children: 3 Current occupational status: disabled History of recent travel: No Vitals/I&O/Wt Last Vital Signs Pulse 107 H 06/10/21 09:17 Resp 23 H 06/10/21 09:17 BP 217/128 06/10/21 09:17 Pulse Ox 93 06/10/21 09:17 Weight last 48 hrs Weight 79.379 kg Physical Exam Narrative: EXAM NARRATIVE: General exam demonstrates a white male, sleepy, who will awaken and answer a few questions but quickly goes back to sleep HEENT: Atraumatic and normocephalic. Oropharynx clear. Dentition poor. Neck is supple no lymphadenopathy or thyromegaly Cardiovascular tachycardic, no murmur. Blood pressure noted to be elevated Lungs clear but diminished breath sounds bilaterally. Abdomen is soft. Positive bowel sounds. No obvious organomegaly. Fluid wave consistent with ascites. is deferred Extremities 3+ edema bilaterally. No cyanosis or clubbing. Data : 06/10/21 08:01 06/10/21 08:01 Other Labs: Bilirubin 1.6, AST 1100, ALT 471, alk phos 155, ammonia 39, albumin 3.8 Ankle x-ray no fracture. Chest x-ray mild cardiomegaly, interstitial edema. EKG demonstrated left axis deviation, intraventricular conduction delay, peak T waves A&P Assessment and plan (1) Hyperkalemia: Significant hyperkalemia, consistent with him not receiving dialysis last week. Calcium chloride, insulin and glucose, Kayexalate given in the emergency department. Nephrology has been consulted, and dialysis imminent. I suspect he is significantly acidotic, but this is unlikely to add anything to his treatment by doing an ABG currently. Status: Acute (2) Fluid overload: Should improve with hemodialysis Consistent with acute diastolic heart failure Check echocardiogram Status: Acute (3) ESRD (end stage renal disease): Nephrology consultation Check urinalysis Status: Acute (4) Transaminitis: Likely secondary to fluid overload. Check echocardiogram secondary to valvular abnormalities in the past Extensive recent work-up including liver biopsy. Also check antimitochondrial antibody. Status: Acute (5) COPD (chronic obstructive pulmonary disease): No evidence of exacerbation. DuoNeb as needed. Status: Acute Plan Hypertensive urgency. He received some hydralazine in the emergency department. We will restart his home medicines he has not been taking. Adjust as n ecessary. Dialysis should lower blood pressure some as well. Continue hydralazine as needed as well. appreciate nephrology consultation. Multiple other medical problems as outlined in past medical history Full code Heparin for DVT prophylaxis Attestations Medical Necessity Statement*: Will need greater than 2 midnight stay secondary to severe hyperkalemia, fluid overload secondary to noncompliance with dialysis. Critical Care Time: The high probability of a clinically significant, sudden or life threatening deterioration of the patient's [pulmonary, cardiac, renal system(s) required my full and direct attention, intervention and personal management. The critical care time is as shown. This time is in addition to time spent performing any reported procedures but includes the following: [x] Data and vital sign review and interpretation [x] Patient assessment, examination and intervention [x] Documentation [x] Medication orders and management Critical Care Time (min): 56 Coding Level of Care Code Acute Channel Marketing Specialist for g Fwd Diagnoses Hyperkalemia E87.5 Fluid overload E87.70 ESRD (end stage renal disease) N18.6 Transaminitis R74.01 COPD (chronic obstructive pulmonary disease) J44.9 Time Spent (min) 56
--- NOTE | 2021-06-10 10:12 | PM.CONSULT ---
Providers/Reason For Consult Consulting Physician/Specialty*: Nephrology Reason for Consult*: Eval for ESRD Primary Care Provider: Mal Junior History of Present Illness History of Present Illness Thank you consultation, today had the pleasure of reviewing Mr. Gibbs whom I know well from prior hospitalizations. On interview, he can give little history, he simply lost his answers to simple questions. He appears to be very weak, very unwell. It is apparent that he has not had dialysis since he was last admitted, the last dialysis session I believe to be on 06/03. Blood pressure is obviously very high, a lot of swelling in his lower extremities on his abdomen. He has a fistula in his left forearm, this appears to be a healthy fistula with no recent problems. Potassium noted to be 8 on arrival, currently receiving temporizing medical therapy until dialysis is ready this morning. Review of Systems Narrative: Unobtainable Medications/Allergies Home Medications Medication Instructions Recorded Confirmed Last Taken Type umeclidinium 62.5 mcg/actuation 1 inh INHALATION DAILY 05/03/20 06/10/21 05/16/21 History blister powder for inhalation (Incruse Ellipta) minoxidil 2.5 mg tablet 2.5 mg PO BID 02/25/21 06/10/21 05/16/21 History pantoprazole 40 mg tablet,delayed 40 mg PO BID 02/25/21 06/10/21 05/16/21 History release sevelamer carbonate 800 mg tablet See Rx Instructions .ROUTE .COMPLEX 02/25/21 06/10/21 05/16/21 History (Renvela) fluticasone propionate 50 2 spray INTRANASAL DAILY PRN 05/27/21 06/10/21 Unknown History mcg/actuation nasal spray,suspension gentamicin 0.3 % eye drops 1 drp OPHTHALMIC (EYE) Q6H 05/27/21 06/10/21 Unknown History trazodone 50 mg tablet 50 mg PO BEDTIME PRN 05/27/21 06/10/21 Unknown History albuterol sulfate 90 mcg/actuation 2 puff INHALATION QID PRN #2 g 06/04/21 06/10/21 Unknown Rx aerosol inhaler (ProAir HFA) amlodipine 10 mg tablet 10 mg PO DAILY 06/10/21 06/10/21 Unknown History carvedilol 25 mg tablet 50 mg PO BID 06/10/21 06/10/21 Unknown History hydralazine 10 mg tablet 10 mg PO Q8H 06/10/21 06/10/21 Unknown History isosorbide mononitrate 60 mg 60 mg PO QAM 06/10/21 06/10/21 Unknown History tablet,extended release 24 hr lactulose 10 gram/15 mL oral 10 g PO TID 06/10/21 06/10/21 Unknown History solution lisinopril 20 mg tablet 20 mg PO DAILY 06/10/21 06/10/21 Unknown History rifaximin 550 mg tablet (Xifaxan) 550 mg PO BID 06/10/21 06/10/21 Unknown History Allergies Allergy/AdvReac Type Severity Reaction Status Date / Time nifedipine Allergy ALGY-Swell Verified 06/10/21 09:56 Lip/Tongue/Throat PFSH Acute PFSH: Medical History (Updated 06/10/21 @ 10:13 by Caden Salazar) Abdominal ascites Acute diastolic CHF (congestive heart failure) Anasarca Anemia Anemia Anxiety with depression Arteriovenous fistula for hemodialysis in place, secondary Congestive heart failure COPD (chronic obstructive pulmonary disease) Current smoker Degenerative disc disease, lumbar End-stage renal disease on hemodialysis ESRD (end stage renal disease) Gross hematuria Hematuria Hemoptysis Hepatomegaly Hyperkalemia Hypertension Hypertensive emergency PHT (pulmonary hypertension) Surgical History H/O hand surgery Amputation right 2&3 fingers 2017 History of adenoidectomy Family History Father No problems noted. Other Hypertension Social History Smoking and tobacco status: current every day smoker Alcohol intake: never Marital status: Number of children: 3 Current occupational status: disabled History of recent travel: No Vitals/I&O/Wt Last Vital Signs Pulse 107 H 06/10/21 09:17 Resp 23 H 06/10/21 09:17 BP 217/128 06/10/21 09:17 Pulse Ox 93 06/10/21 09:17 Weight last 48 hrs Weight 79.379 kg Physical Exam Narrative: EXAM NARRATIVE: Constitutional: Drowsy HEENT: Wet mucosa, elevated jvp, non icteric Lungs: Bilaterally clear without discernible wheeze, rales in all lung zones CVS: S1 S2, no murmurs Abdo: Soft, BS ok, obvious ascites Ext 4: 2-3+ edema, peripheral perfusion with no cyanosis Neurological: Grossly non-focal Data : 06/10/21 08:01 06/10/21 08:01 A&P Assessment and plan (1) ESRD (end stage renal disease): Status: Acute Plan 1. End-stage renal disease Dialysis this morning, 2K bath, ultrafiltration 3-4 L. I will evaluate him tomorrow morning for additional dialysis sessions. Dose medication for GFR less than 15 on dialysis. 2. Chemistry Reflective of poor compliance with dialysis. Currently receiving temporizing therapy to bring his potassium acutely down, will dialyze him on a 2K bath, recheck labs later on this afternoon after dialysis. 3. Hypertension Secondary to massive fluid overload, continue home medication, ultrafiltration with dialysis should help to bring this down. 4. Chronic ESRD issues To be managed as an outpatient as part of standard monthly management. Caden Salazar MD Nephrology [phone] Patient seen and examined via telemedicine, with the assistance of the bedside RN > 25 min spent in evaluation and mgmt of patient Coding Level of Care Code Acute Passenger Service Supervisor for Cristi Diane Diagnoses ESRD (end stage renal disease) N18.6
[2021-06-10] MEDS: heparin 5,000 unit/mL INJ 1 mL 5000 UNIT SUBCUT ×2 (11:20→22:18)
[2021-06-10] MEDS: hyDRALAzine 20 mg/mL INJ 1 mL 10 MG IVP ×3 (11:20→23:01)
--- NOTE | 2021-06-10 12:00 | PC.NURSE ---
Patient started dialysis on ED floor at 1200pm.
[2021-06-10] MEDS: ondansetron 2 mg/ML SDV 2 mL 4 MG IVP (12:41)
--- NOTE | 2021-06-10 14:56 | PC.NURSE ---
PATIENT REMAINS IN DIALYSIS CLINIC AT THIS TIME.
[2021-06-10] MEDS: pantoprazole DR 40 mg Tablet PO (18:18)
[2021-06-10] MEDS: sevelamer 800 mg Tablet 3200 MG PO (18:28)
[2021-06-10] MEDS: hyDRALAzine 10 mg Tablet PO (19:01)
--- NOTE | 2021-06-10 19:55 | PC.HD ---
Pt dialyzed in ED. Urgent dialysis for potassium >8, shortness of breath with resp rate 24 and O2 sat 91% on 2L NC, 4+ edema from abdomen to toes. Unable to weigh pt due to pt being on ED stretcher. Prescribed treatment time 3.5 hours, however pt was incontinent liquid stool with abd cramping and additional stool pending so blood returned so pt could get up to bedside commode. Treatment was inturrupted for an hour while pt moved his bowels and got cleaned up. Treatment was resumed and was completed. At end of treatment, pt's breathing was unlabored, resp rate 16, O2 sat 97%. Pt's BP was extremely elevated prior to and throughout treatment.
[2021-06-10] MEDS: minoxidil 10 mg Tablet 2.5 MG PO (21:22)
[2021-06-10] MEDS: carvedilol 25 mg Tablet 50 MG PO (21:22)
--- NOTE | 2021-06-10 22:17 | PC.NURSE ---
Patient arrived to ICU from ED at 2200.
[2021-06-11] VITALS (109 sets, daily range): BP systolic 113–164; BP diastolic 66–102; PULSE 57–100; RESP 10–27; TEMP 36.3–36.7; O2SAT 80–98
[2021-06-11] MEDS: hyDRALAzine 10 mg Tablet PO ×3 (01:47→18:31)
[2021-06-11 04:05] LABS: Basophils # 0.1 10^3/uL (0.0-0.1); Basophils % 0.7 %; Eosinophils # 0.1 10^3/uL (0.0-0.8); Eosinophils % 0.8 %; Hematocrit 31.9 % (42.0-52.0); Hemoglobin 10.3 g/dL (11.7-16.6); Lymphocytes # 0.6 10^3/uL (0.8-4.8); Lymphocytes % 7.8 %; Mean Corpuscular HGB Conc 32.3 g/dL (30.0-36.0); Mean Corpuscular Hemoglobin 27.3 pg (28.0-34.0); Mean Corpuscular Volume 84.6 fl (80-94); Mean Platelet Volume 11.2 fL (7.4-10.4); Monocytes # 0.3 10^3/uL (0.2-0.9); Neutrophils # 6.36 10^3/uL (1.8-7.7); Neutrophils % 85.9 %; Nucleated Red Blood Cells % 0 %; Platelet Count 163 10^3/cmm (130-400); Red Blood Count 3.77 10^6/uL (4.1-5.3); Red Cell Distribution Width 19.3 % (12.1-15.1); White Blood Count 7.4 10^3/uL (4.0-10.0)
[2021-06-11 04:34] LABS: Albumin Level 3.3 g/dL (3.5-5.2); Alkaline Phosphatase 156 IU/L (40-130); Anion Gap 22.4 (5-19); Blood Urea Nitrogen 69 mg/dL (6-20); Calcium 9.1 mg/dL (8.5-10.5); Carbon Dioxide 25 mmol/L (22-29); Chloride 96 mmol/L (98-107); Globulin 3.3 g/dL (1.3-4.6); Glomerular Filtration Rate 5.4 mL/min (90-130); Glucose 97 mg/dL (65-115); Osmolality Calculated 306 mOsm/kg (285-295); Potassium 5.4 mmol/L (3.5-5.1); Sodium 138 mmol/L (136-145); Total Bilirubin 1.4 mg/dL (0.15-1.2); Total Protein 6.6 g/dL (6.6-8.7)
[2021-06-11 05:01] LABS: Aspartate Amino Transferase 1909 U/L (0-40)
[2021-06-11 05:02] LABS: Alanine Aminotransferase 1166 U/L (0-41)
[2021-06-11] MEDS: isosorbide mononitrate ER 60 mg Tablet PO (05:08)
--- NOTE | 2021-06-11 07:43 | US_ITS ---
WS: [id number] RIGHT UPPER QUADRANT ULTRASOUND HISTORY: increasing LFT's COMPARISON: 09/13/2020 Liver: 19.0 cm in length. Liver is mild to moderately enlarged. Mild coarse echotexture. Portal triad s are still apparent. There is variable echogenicity throughout the liver but no mass identified. No hematoma evident. Perihepatic fluid is evident. Portal Vein: Portal vein is only minimally prominent. Hepatopetal flow. There is mild undulation of t he waveform. Flow extends just below the baseline but this may be due to color gain setting. Visually the flow is forward within the portal vein. Gallbladder: Contracted thick walled gallbladder. Increased echogenicity in the gallbladder may be so me stones or sludge. CBD: 0.5 cm Pancreas: Normal size and echogenicity. Right kidney: 6.0 cm in length. Small kidney with atrophy and increased echogenicity. Aorta and IVC: Unremarkable abdominal aorta and IVC. Small to moderate amount of ascites throughout the abdomen. US/US liver [id number] IMPRESSION: 1. Mildly enlarged liver. 2. No bile duct dilatation. 3. Normal forward flow within the portal vein. 4. Diffuse gallbladder wall thickening is probably on the basis of ascites and hepatocellular disease. Small stones cannot be excluded. Gallbladder is contra cted. 5. Small to moderate amount of ascites.
--- NOTE | 2021-06-11 07:49 | P.PN_ITS ---
Subjective Subjective: Mal reports he does not feel any better today, but he certainly appears like he is doing better. He is able to answer questions, and reports no severe pain. He does not report any shortness of breath. Medications: Reviewed: Yes Vitals/I&O/Wt Last Vital Signs Temp 98.5 F 06/10/21 22:11 Pulse 83 06/11/21 06:00 Resp 15 06/11/21 06:00 BP 136/81 06/11/21 06:00 Pulse Ox 93 06/11/21 06:00 06/10/21 06/11/21 06/11/21 22:59 06:59 14:59 Intake Total 1000 / 1000 480 / 1480 Output Total 4321 / 4321 Balance -3321 / -3321 480 / -2841 Weight last 48 hrs Weight 77.819 kg Weight 77.337 kg Weight 0 g Weight 79.379 kg Physical Exam Narrative: General exam conversant male Neck is supple no lymphadenopathy or thyromegaly Cardiovascular tachycardic, no murmur. Blood pressure noted to be elevated Lungs clear but diminished breath sounds bilaterally. Abdomen is soft. Positive bowel sounds. No obvious organomegaly. Abdomen appears softer Extremities 1 edema bilaterally. No cyanosis or clubbing. Data : 06/11/21 03:43 06/11/21 03:43 A&P Assessment and plan (1) Hyperkalemia: Significant hyperkalemia, consistent with him not receiving dialysis last week. Calcium chloride, insulin and glucose, Kayexalate given in the emergency department. Nephrology has been consulted, and dialysis was initiated 06/12 I suspect he is significantly acidotic, but this is unlikely to add anything to his treatment by doing an ABG currently. Status: Acute (2) Fluid overload: Improving with hemodialysis Consistent with acute diastolic heart failure Await echocardiogram Status: Acute (3) ESRD (end stage renal disease): Appreciate nephrology consultation No urinalysis will be obtained, patient no longer makes urine Status: Acute (4) Transaminitis: Likely secondary to fluid overload. Await echocardiogram Extensive recent work-up including liver biopsy. Also check antimitochondrial antibody. This is pending LFTs are worse in regards to enzymes although bilirubin is better Check hepatic ultrasound Repeat LFTs tomorrow Status: Acute (5) COPD (chronic obstructive pulmonary disease): No evidence of exacerbation. DuoNeb as needed. Status: Acute Plan Hypertensive urgency. He received some hydralazine in the emergency department. Blood pressure markedly improved. Many of his home medication dose is lowered. Multiple other medical problems as outlined in past medical history Full code Heparin for DVT prophylaxis Attestations Medical Necessity Statement*: Needs continued hospitalization to address fluid overload with dialysis. Coding Level of Care Code Acute Quality Assurance Consultant for g Fwd Diagnoses Hyperkalemia E87.5 Fluid overload E87.70 ESRD (end stage renal disease) N18.6 Transaminitis R74.01 COPD (chronic obstructive pulmonary disease) J44.9
[2021-06-11] MEDS: pantoprazole DR 40 mg Tablet PO ×2 (08:06→18:31)
[2021-06-11] MEDS: sevelamer 800 mg Tablet 3200 MG PO ×3 (08:06→18:32)
[2021-06-11] MEDS: carvedilol 25 mg Tablet 50 MG PO ×2 (08:06→21:59)
[2021-06-11 08:11] LABS: Acetaminophen < 5.0 ug/mL (10-30); Salicylate < 0.3 mg/dL (3-10)
[2021-06-11 10:07] LABS: Hepatitis A Antibody IgM Non-Reactive (Nonreactive); Hepatitis B Core IgM Non-Reactive (Nonreactive); Hepatitis B Surface Antigen Non-Reactive (Nonreactive); Hepatitis C Virus Antibody Non-Reactive (Nonreactive)
--- NOTE | 2021-06-11 10:29 | USCV_ITS ---
Mal Gibbs Age: 40 Gender: M : 1980 Exam Date: 06/11/2021 06:10 Ordering Phys: Db Bauman MD Technologist: SUSIE Exam Location: [facility] [place] Indication: Dialysis, volume overload BP: 133 / 81 HR: 76 Rhythm: Sinus Technical Quality: Adequate MEASUREMENTS (Male / Female) Normal Values 2D ECHO LV Diastolic Diameter PLAX 4.7 cm 4.2 - 5.9 / 3.9 - 5.3 cm LV Systolic Diameter PLAX 3.4 cm IVS Diastolic Thickness 2.0 cm 0.6 - 1.0 / 0.6 - 0.9 cm IVS Systolic Thickness 2.1 cm LVPW Diastolic Thickness 1.8 cm 0.6 - 1.0 / 0.6 - 0.9 cm LVPW Systolic Thickness 2.2 cm LVOT Diameter 2.1 cm LV Ejection Fraction 2D Teich 54.9 % LV Ejection Fraction MOD 2C 61.4 % LV Ejection Fraction 2C AL 61.6 % LA Diameter 4.7 cm LA Width 3.4 cm LA Height 6.6 cm RA Width 6.5 cm RA Height 5.7 cm Aorta at Sinotubular Diameter 3.0 cm M-MODE Aortic Annulus Diameter 3.2 cm LA Ao Ratio MM 1.5 MV E Point Septal Separation 0.5 cm DOPPLER AV Peak Velocity 121.0 cm/s LVOT Peak Velocity 111.0 cm/s AV Area Cont Eq vti 2.8 cm squared AV Area Cont Eq pk 3.2 cm squared MV Peak Velocity 145.0 cm/s MV Area PHT 5.9 cm squared Mitral E to A Ratio 1.4 MV E' Velocity 66.0 cm/s Mitral E to MV E' Ratio 15.0 Mitral E to LV E' Lateral Ratio 10.3 Mitral E to LV E' Septal Ratio 27.9 TR Peak Velocity 392.8 cm/s TR Peak Gradient 61.7 mmHg TV Peak E Velocity 69.0 cm/s Right Atrial Pressure 15.0 mmHg Pulmonary Artery Systolic Pressu 76.7 mmHg PV Peak Velocity 137.0 cm/s RV Acceleration Time 0.0 s RV Ejection Time 0.3 s RV AcT/ET 0.1 FINDINGS Left Ventricle Normal left ventricular cavity size and systolic function. Severely increased left ventricle wall thickness. Severe concentric left ventricular hypertrophy. Left ventricular ejection fraction is estimated at 60%. No regional wall motion abnormalities. Grade II diastolic dysfunction, moderately elevated filling pressures. Flattened septum in systole consistent with right ventricle pressure overload. Right Ventricle Moderately dilated right ventricle with moderately decreased right ventricle systolic function. Right ventricular systolic pressure 82 mmHg. Right Atrium Moderately to severely increased right atrial size. Right atrial pressure estimated at 15 mmHg. Bowing of interatrial septum to left. Left Atrium Moderately increased left atrial size. Mitral Valve Mild mitral annular calcification. No mitral valve stenosis. Mild mitral valve regurgitation. Aortic Valve Structurally normal trileaflet aortic valve. No aortic valve stenosis. No aortic valve regurgitation. Tricuspid Valve Structurally normal tricuspid valve. No tricuspid valve stenosis. At least moderate tricuspid valve regurgitation. Pulmonic Valve Structurally normal pulmonic valve. No pulmonary valve stenosis. Mild to moderate pulmonary valve regurgitation. Pericardium Trivial pericardial effusion. Left pleural effusion. Aorta Normal size aortic root and proximal ascending aorta. Normal- sized inferior vena cava with less than 50% respiratory variation. CONCLUSIONS 1. Normal left ventricular cavity size and systolic function. Severe concentric left ventricular hypertrophy. Left ventricular ejection fraction is estimated at 60%. No regional wall motion abnormalities. Grade II diastolic dysfunction, moderately elevated filling pressures. Flattened septum in systole consistent with right ventricle pressure overload. 2. Moderately dilated right ventricle with moderately decreased right ventricle systolic function. 3. Severe pulmonary hypertension with pulmonary artery pressure estimated at 82 mmHg. 4. Moderately to severely increased right atrial size. Moderately increased left atrial size. 5. At least moderate tricuspid valve regurgitation. 6. Mild mitral valve regurgitation. 7. When compared to previous echocardiogram dated 09/13/2020, right ventricle is dilated and right ventricle systolic function is decreased. Pulmonary artery pressure has markedly increased now. Rosalia Dia MD (Electronically Signed) Final Date: 11 June 2021 19:06 S
[2021-06-11] MEDS: heparin 5,000 unit/mL INJ 1 mL 5000 UNIT SUBCUT ×2 (11:18→21:59)
--- NOTE | 2021-06-11 13:30 | PC.NURSE ---
Report called to JAGUAR Hirsch on [facility] floor. Pt to be transferred to [facility] via wheelchair to 278 bed 1.
--- NOTE | 2021-06-11 14:39 | PM.PN ---
Subjective Subjective: No new issues with Mr. Gibbs today. He remains very weak, minimally interactive. Dialysis went well yesterday, uncomplicated therapy. He still has significant ascites and significant lower extremity edema. Blood pressure did improve some after dialysis and ultrafiltration yesterday. Medications: Reviewed: Yes Vitals/I&O/Wt Last Vital Signs Temp 98.5 F 06/10/21 22:11 Pulse 76 06/11/21 14:00 Resp 16 06/11/21 10:49 BP 130/83 06/11/21 14:00 Pulse Ox 93 06/11/21 13:45 06/10/21 06/11/21 06/11/21 22:59 06:59 14:59 Intake Total 1000 / 1000 480 / 1480 1080 / 1080 Output Total 4321 / 4321 Balance -3321 / -3321 480 / -2841 1080 / 1080 Weight last 48 hrs Weight 77.819 kg Weight 77.337 kg Weight 0 g Weight 79.379 kg Physical Exam Narrative: Constitutional: Drowsy HEENT: Wet mucosa, elevated jvp, non icteric Lungs: Bilaterally clear without discernible wheeze, rales in all lung zones CVS: S1 S2, no murmurs Abdo: Soft, BS ok, obvious ascites Ext 4: 2-3+ edema, peripheral perfusion with no cyanosis Neurological: Grossly non-focal Data : 06/11/21 03:43 06/11/21 03:43 A&P Assessment and plan (1) ESRD (end stage renal disease): Status: Acute Plan 1. End-stage renal disease Dialysis planned for tomorrow, 2K bath, ultrafiltration 3-4 L. I will evaluate him tomorrow morning for additional dialysis sessions. Dose medication for GFR less than 15 on dialysis. 2. Chemistry Improved after dialysis, K a little high, renal diet 3. Hypertension Secondary to massive fluid overload, continue home medication, ultrafiltration with dialysis helped to bring this down. 4. Chronic ESRD issues To be managed as an outpatient as part of standard monthly management. 5. Dispo DC planning, ok from my perspective Caden Salazar MD Nephrology [phone] Patient seen and examined via telemedicine, with the assistance of the bedside RN > 25 min spent in evaluation and mgmt of patient Attestations Medical Necessity Statement*: mgmt of ESRD Coding Level of Care Code Acute Escrow Officer for Chg Fwd Diagnoses ESRD (end stage renal disease) N18.6
[2021-06-12] VITALS (10 sets, daily range): BP systolic 142–214; BP diastolic 85–126; PULSE 65–74; RESP 16–18; TEMP 36.4–37; O2SAT 95–98
[2021-06-12] MEDS: acetaminophen 325 mg Tablet 650 MG PO (03:20)
[2021-06-12] MEDS: hyDRALAzine 10 mg Tablet PO ×3 (03:20→18:10)
[2021-06-12 05:32] LABS: Basophils % 0.7 %; Eosinophils # 0.3 10^3/uL (0.0-0.8); Hematocrit 29.6 % (42.0-52.0); Hemoglobin 9.3 g/dL (11.7-16.6); Lymphocytes # 0.6 10^3/uL (0.8-4.8); Mean Corpuscular HGB Conc 31.4 g/dL (30.0-36.0); Mean Corpuscular Hemoglobin 27.4 pg (28.0-34.0); Mean Corpuscular Volume 87.3 fl (80-94); Mean Platelet Volume 11.8 fL (7.4-10.4); Monocytes # 0.4 10^3/uL (0.2-0.9); Monocytes % 7.3 %; Neutrophils # 4.58 10^3/uL (1.8-7.7); Neutrophils % 76.5 %; Nucleated Red Blood Cells % 0 %; Platelet Count 156 10^3/cmm (130-400); Red Blood Count 3.39 10^6/uL (4.1-5.3); Red Cell Distribution Width 19.2 % (12.1-15.1)
[2021-06-12 05:50] LABS: Alanine Aminotransferase 605 U/L (0-41); Albumin Level 2.8 g/dL (3.5-5.2); Alkaline Phosphatase 111 IU/L (40-130); Anion Gap 20.6 (5-19); Aspartate Amino Transferase 314 U/L (0-40); Calcium 8.6 mg/dL (8.5-10.5); Carbon Dioxide 19 mmol/L (22-29); Chloride 94 mmol/L (98-107); Globulin 3.1 g/dL (1.3-4.6); Glucose 83 mg/dL (65-115); Osmolality Calculated 292 mOsm/kg (285-295); Potassium 4.6 mmol/L (3.5-5.1); Sodium 129 mmol/L (136-145); Total Bilirubin 0.7 mg/dL (0.15-1.2); Total Protein 5.9 g/dL (6.6-8.7)
[2021-06-12 06:11] LABS: Blood Urea Nitrogen 81 mg/dL (6-20)
[2021-06-12] MEDS: isosorbide mononitrate ER 60 mg Tablet PO (06:38)
[2021-06-12] MEDS: carvedilol 25 mg Tablet 50 MG PO (08:04)
[2021-06-12] MEDS: sevelamer 800 mg Tablet 3200 MG PO ×3 (08:04→18:10)
[2021-06-12] MEDS: pantoprazole DR 40 mg Tablet PO ×2 (08:05→18:10)
--- NOTE | 2021-06-12 09:37 | PM.PN ---
Subjective Subjective: No new issues with Mr. Gibbs today. He still has some mild nausea but otherwise feels relatively well. Still requiring some nasal oxygen. Dialysis is pending for today. Medications: Reviewed: Yes Vitals/I&O/Wt Last Vital Signs Temp 97.6 F 06/12/21 07:56 Pulse 68 06/12/21 09:08 Resp 17 06/12/21 09:08 BP 153/91 06/12/21 07:56 Pulse Ox 97 06/12/21 09:09 06/11/21 06/12/21 06/12/21 22:59 06:59 14:59 Intake Total 480 / 1560 700 / 2260 Balance 480 / 1560 700 / 2260 Weight last 48 hrs Weight 82.871 kg Weight 77.819 kg Weight 77.337 kg Weight 0 g Physical Exam Narrative: Constitutional: Drowsy HEENT: Wet mucosa, elevated jvp, non icteric Lungs: Bilaterally clear without discernible wheeze, rales in all lung zones CVS: S1 S2, no murmurs Abdo: Soft, BS ok, obvious ascites Ext 4: 2-3+ edema, peripheral perfusion with no cyanosis Neurological: Grossly non-focal Data : 06/12/21 05:12 06/12/21 05:12 A&P Assessment and plan (1) ESRD (end stage renal disease): Status: Acute Plan 1. End-stage renal disease Dialysis planned for today, 2K bath, ultrafiltration 3-4 L. I will evaluate him tomorrow morning for additional dialysis sessions. Dose medication for GFR less than 15 on dialysis. 2. Chemistry Improved after dialysis, renal diet 3. Hypertension Secondary to massive fluid overload, continue home medication, ultrafiltration with dialysis helped to bring this down. 4. Chronic ESRD issues To be managed as an outpatient as part of standard monthly management. 5. Dispo DC planning, ok from my perspective Caden Salazar MD Nephrology [phone] Patient seen and examined via telemedicine, with the assistance of the bedside RN > 25 min spent in evaluation and mgmt of patient Attestations Medical Necessity Statement*: eval for ESRD Coding Level of Care Code Acute Branch Sales And Service Representative for Chg Fwd Diagnoses ESRD (end stage renal disease) N18.6
[2021-06-12] MEDS: ondansetron 2 mg/ML SDV 2 mL 4 MG IVP (09:51)
[2021-06-12] MEDS: heparin 5,000 unit/mL INJ 1 mL 5000 UNIT SUBCUT (09:51)
--- NOTE | 2021-06-12 11:57 | PM.DCS ---
Discharge Providers Date of Admission: 06/10/21 10:32 Date of Discharge: June 12, 2021 Attending Provider at Admission: Db Bauman MD Attending Provider at Discharge: Db Bauman MD Primary Care Provider: Mal Junior Diagnoses at Discharge Discharge Diagnosis (1) ESRD (end stage renal disease): Status: Acute Reason for Visit Reason for Visit: LOWER EDEMA, DIALYSIS Hospital Course Hospital Course Mal is a 40-year-old male with end-stage renal disease on hemodialysis who presented to the hospital after missing dialysis for 1 week. He had significant fluid overload, shortness of breath, and severe hyperkalemia. He was given Kayexalate, insulin and glucose, and bronchodilators. Nephrology was consulted and hemodialysis was performed shortly after admission. He tolerated this well. LFTs were noted to be significantly elevated. There was a question of liver disease for which she is to follow-up with his primary care provider at his last admission. Hepatitis panel was negative, antimitochondrial antibody ordered, previous autoimmune work-up reviewed, salicylate and acetaminophen level less than detectable. Hepatic ultrasound demonstrated diffuse gallbladder wall thickening not thought to be cholecystitis, small to moderate ascites, mildly enlarged liver, no duct dilation, and normal flow through the portal vein. With dialysis he rapidly improved, with liver tests also improving. He will need to follow-up with his primary care provider regarding his elevated LFTs, to determine if any other testing is needed and follow-up of pending laboratory. AST and ALT 314 and 605 respectively on discharge. Bilirubin was normal. On admission bilirubin was 1.6, AST 1100, ALT 470. Echocardiogram was also done demonstrating grade 2/4 diastolic dysfunction, EF of 60%, moderately dilated right ventricle, pulmonary hypertension. It should be noted that this was done in the face of severe fluid overload. He had had no complaints of chest discomfort, a rather recent venous duplex that was negative. Complaints of shortness of breath he had on admission with fluid overload went away quickly with ultrafiltration on dialysis. He did not require any significant amount of oxygen, on room air most of his hospital stay. He reports he has 2 L at home he uses as needed. He will follow-up with pulmonary in regards to his tobacco dependency, likely lung disease, pulmonary hypertension. Physical Exam Narrative: General exam no distress Neck is supple Cardiovascular regular rate and rhythm Lungs clear Abdomen is soft, positive bowel sounds Extremities trace edema. No cyanosis or clubbing Discharge Data Studies Completed and Pending Completed Studies During Hospitalization Category Date Time Status XR ankle LT min 3V* [id number] Stat Exams 06/10/21 07:52 Completed XR ankle RT min 3V* [id number] Stat Exams 06/10/21 07:52 Completed XR chest 1V portable [id number] Stat Exams 06/10/21 07:51 Completed CV. echo complete* [id number] Routine Ultrasound 06/11/21 10:29 [place] liver [id number] Routine Ultrasound 06/11/21 07:43 Completed Pending at discharge Category Date Time Status Mitochondrial AB Screen Routine Lab 06/10/21 08:01 Received Radiology Impressions Chest X-Ray 06/10/21 07:51 IMPRESSION: 1. Very mild interstitial edema. 2. Mild cardiomegaly. 3. No pneumonia. Ankle X-Ray 06/10/21 07:52 IMPRESSION: Normal RIGHT ankle. Liver Ultrasound 06/11/21 07:43 IMPRESSION: 1. Mildly enlarged liver. 2. No bile duct dilatation. 3. Normal forward flow within the portal vein. 4. Diffuse gallbladder wall thickening is probably on the basis of ascites and hepatocellular disease. Small stones cannot be excluded. Gallbladder is contracted. 5. Small to moderate amount of ascites. Laboratory Results WBC 6.0 10^3/uL (4.0-10.0) 06/12/21 05:12 RBC 3.39 10^6/uL (4.1-5.3) L 06/12/21 05:12 Hgb 9.3 g/dL (11.7-16.6) L 06/12/21 05:12 Hct 29.6 % (42.0-52.0) L 06/12/21 05:12 MCV 87.3 fl (80-94) 06/12/21 05:12 MCH 27.4 pg (28.0-34.0) L 06/12/21 05:12 MCHC 31.4 g/dL (30.0-36.0) 06/12/21 05:12 RDW 19.2 % (12.1-15.1) H 06/12/21 05:12 Plt Count 156 10^3/cmm (130-400) 06/12/21 05:12 MPV 11.8 fL (7.4-10.4) H 06/12/21 05:12 Neut % (Auto) 76.5 % 06/12/21 05:12 Lymph % (Auto) 10.0 % 06/12/21 05:12 [place] % (Auto) 7.3 % 06/12/21 05:12 Eos % (Auto) 5.0 % 06/12/21 05:12 Baso % (Auto) 0.7 % 06/12/21 05:12 Neut # (Auto) 4.58 10^3/uL (1.8-7.7) 06/12/21 05:12 Lymph # (Auto) 0.6 10^3/uL (0.8-4.8) L 06/12/21 05:12 [place] # (Auto) 0.4 10^3/uL (0.2-0.9) 06/12/21 05:12 Eos # (Auto) 0.3 10^3/uL (0.0-0.8) 06/12/21 05:12 Baso # (Auto) 0.0 10^3/uL (0.0-0.1) 06/12/21 05:12 Nucleated RBC % (auto) 0 % 06/12/21 05:12 Nucleated RBCs # 0.0 /100WBC 06/12/21 05:12 Sodium 129 mmol/L (136-145) L 06/12/21 05:12 Potassium 4.6 mmol/L (3.5-5.1) 06/12/21 05:12 Chloride 94 mmol/L (98-107) L 06/12/21 05:12 Carbon Dioxide 19 mmol/L (22-29) L 06/12/21 05:12 Anion Gap 20.6 (5-19) H 06/12/21 05:12 BUN 81 mg/dL (6-20) H 06/12/21 05:12 Creatinine 11.5 mg/dL (0.7-1.2) H* 06/12/21 05:12 GFR Calculation 5.0 mL/min (90-130) L 06/12/21 05:12 Glucose 83 mg/dL (65-115) 06/12/21 05:12 Calculated Osmolality 292 mOsm/kg (285-295) 06/12/21 05:12 Calcium 8.6 mg/dL (8.5-10.5) 06/12/21 05:12 Total Bilirubin 0.7 mg/dL (0.15-1.2) 06/12/21 05:12 Direct Bilirubin 1.00 mg/dL (0.00-0.30) H 06/10/21 08:01 AST 314 U/L (0-40) H 06/12/21 05:12 ALT 605 U/L (0-41) H 06/12/21 05:12 Alkaline Phosphatase 111 IU/L (40-130) 06/12/21 05:12 Ammonia 39 umol/L (16-60) 06/10/21 09:34 Total Protein 5.9 g/dL (6.6-8.7) L 06/12/21 05:12 Albumin 2.8 g/dL (3.5-5.2) L 06/12/21 05:12 Globulin 3.1 g/dL (1.3-4.6) 06/12/21 05:12 Salicylates < 0.3 mg/dL (3-10) L 06/11/21 03:43 Acetaminophen < 5.0 ug/mL (10-30) L 06/11/21 03:43 Hepatitis A IgM Ab Non-reactive (Nonreactive) 06/11/21 09:15 Hep Bs Antigen Non-reactive (Nonreactive) 06/11/21 09:15 Hep B Core IgM Ab Non-reactive (Nonreactive) 06/11/21 09:15 Hepatitis C Antibody Non-reactive (Nonreactive) 06/11/21 09:15 Vitals Last Vital Signs Temp 97.5 F L 06/12/21 11:32 Pulse 70 06/12/21 11:32 Resp 18 06/12/21 11:32 BP 156/92 06/12/21 11:32 Pulse Ox 95 06/12/21 11:32 Discharge Plan Discharge Patient Disposition: Home Condition: Stable Prescriptions: Continued Incruse Ellipta 62.5 mcg/actuation blister with device 1 inh INHALATION DAILY 0RF pantoprazole 40 mg tablet,delayed release (DR/EC) 40 mg PO BID 0RF sevelamer carbonate [Renvela] 800 mg tablet See Rx Instructions .ROUTE .COMPLEX 0RF Rx Instructions: 4 TABS PO TID AND ONE TAB BID WITH SNACKS trazodone 50 mg tablet 50 mg PO BEDTIME PRN (Reason: Sleep) 0RF Rx Instructions: pt states he has this medication but doesnt take ext med history shows last filled 05/01/21 30d/s fluticasone propionate 50 mcg/actuation spray,suspension 2 spray INTRANASAL DAILY PRN (Reason: Allergy Symptoms) 0RF albuterol sulfate [ProAir HFA] 90 mcg/actuation Hfa Aerosol Inhaler 2 puff INHALATION QID PRN (Reason: Shortness Of Breath) Qty: 2 4RF hydralazine 10 mg tablet 10 mg PO Q8H 0RF carvedilol 25 mg tablet 50 mg PO BID 0RF isosorbide mononitrate 60 mg tablet extended release 24 hr 60 mg PO QAM 0RF amlodipine 10 mg tablet 10 mg PO DAILY 0RF Xifaxan 550 mg tablet 550 mg PO BID 0RF Discontinued minoxidil 2.5 mg tablet 2.5 mg PO BID 0RF gentamicin 0.3 % drops 1 drp ophthalmic (eye) Q6H 0RF lisinopril 20 mg tablet 20 mg PO DAILY 0RF lactulose 10 gram/15 mL solution 10 g PO TID 0RF Discharge Orders: Discharge Order (Routine); Ordered 06/12/21 Ordered By: Db Bauman Referrals: Mal Junior [Primary Care Provider] - 4-7 days (Please obtain LFTs on follow-up) Discharge Diet: Usual diet Discharge Activity: Increase activity as tolerated Patient Instructions: Opioid Safety Activity Restrictions/Additional Instructions: Follow your renal diet, low potassium. Note that your lisinopril and minoxidil have been discontinued. Take all your medicine as prescribed, and follow-up with dialysis and nephrology this Thursday. No alcohol tobacco or illicit substances. May discharge after dialysis today. Please arrange follow-up with pulmonary regarding to development of pulmonary hypertension in this patient with end-stage renal disease who is actively abusing tobacco. Will need follow-up in approximately 2 weeks. Discharge Attestations Time Spent in Discharge Care*: greater than 30 min Status at Discharge: Cognitive status at discharge: cognitively intact, Behavioral status at discharge: cooperative, Quality Metrics Clinical Quality Measures [ No reported AMI, CVA or VTE this stay] Coding Level of Care Code Acute Chg FW DC note Diagnoses ESRD (end stage renal disease) N18.6
[2021-06-12] MEDS: hyDRALAzine 20 mg/mL INJ 1 mL 10 MG IVP (15:33)
[2021-06-12] MEDS: HYDROcodone-acetaminophen 5-325 mg Tablet 1 TAB PO (16:08)
== END 2021-06-12 18:00 | disposition home or self-care (01) | DRG 291 ==
LOC: ER 07:54 → ER IP 10:40 → ICU 10:46 → ER IP 17:54 → ICU 21:29 → MEDSURG 06-11 14:05
PROVIDERS: Internal Medicine Nephrology; Admitting Provider Internal Medicine; Emergency Provider Family Medicine; PCP Family Medicine; Visit Provider Internal Medicine
DX: I13.2 Hypertensive heart and chronic kidney disease with heart failure and with stage 5 chronic kidney disease, or end stage renal disease (principal); I50.33 Acute on chronic diastolic (congestive) heart failure; N18.6 End stage renal disease; E87.1 Hypo-osmolality and hyponatremia; Z99.2 Dependence on renal dialysis; Z91.15 Patient's noncompliance with renal dialysis; F41.8 Other specified anxiety disorders; F17.210 Nicotine dependence, cigarettes, uncomplicated; J44.9 Chronic obstructive pulmonary disease, unspecified; M51.36 Other intervertebral disc degeneration, lumbar region; I27.20 Pulmonary hypertension, unspecified; M79.606 Pain in leg, unspecified; E87.5 Hyperkalemia
CPT/HCPCS: 36415; 71045; 73610; 76705; 80048; 80053; 80074; 80076; 80307; 82140; 83516; 84132; 85025; 93005; 93306; 94640; 96372; 96374; 96375; 99285; J0360; J1644; J1815; J2405; J2550; J3490; J7611

== ENCOUNTER 2021-06-16 13:58 | Emergency (ER) | payer MEDICARE, MEDICAID, SELFPAY ==
[2021-06-16] VITALS (12 sets, daily range): BP systolic 170–224; BP diastolic 114–151; PULSE 67–84; RESP 13–22; TEMP 36.5; O2SAT 91–98; BMI 22.4
--- NOTE | 2021-06-16 14:35 | XRR_ITS ---
PROCEDURE INFORMATION: Exam: XR Chest Exam date and time: 06/16/2021 2:35 PM Age: 40 years old Clinical indication: Shortness of breath; Additional info: SOB TECHNIQUE: Imaging protocol: XR of the chest. Views: 1 view. COMPARISON: CR XR chest 1V portable [id number] 06/10/2021 8:00 AM FINDINGS: Lungs: Unremarkable. No consolidation. Pleural spaces: Unremarkable. No pleural effusion. No pneumothorax. Heart/Mediastinum: Unremarkable. No cardiomegaly. Bones/joints: Unremarkable. XR/XR chest 1V portable [id number] IMPRESSION: No acute findings.
--- NOTE | 2021-06-16 14:35 | CTR_ITS ---
PROCEDURE INFORMATION: Exam: CT Abdomen And Pelvis With Contrast Exam date and time: 06/16/2021 2:35 PM Age: 40 years old Clinical indication: Abdominal pain; Additional info: Abd pain TECHNIQUE: Imaging protocol: Computed tomography of the abdomen and pelvis with contrast. Radiation optimization: All CT scans at this facility use at least one of these dose optimization techniques: automated exposure control; mA and/or kV adjustment per patient size (includes targeted exams where dose is matched to clinical indication); or iterative reconstruction. Contrast material: VISI 320; Contrast volume: 75 ml; Contrast route: INTRAVENOUS (IV); COMPARISON: CT abdomen pelvis w con* [id number] 05/26/2021 5:43 PM RADIATION DOSE METRICS: Total DLP (mGy-cm): 1452.66 FINDINGS: Liver: Hepatomegaly the liver span is 21 cm. No dilated bile ducts. No mass. Gallbladder and bile ducts: Normal. No calcified stones. No ductal dilation. Pancreas: Normal. No ductal dilation. Spleen: There is splenomegaly. The spleen measures 14 cm. Adrenal glands: Normal. No mass. Kidneys and ureters: The kidneys are small in size. Right 5.6 cm, left 6.8 cm. No hydronephrosis. Stomach and bowel: Unremarkable. No obstruction. No mucosal thickening. There is scattered colonic diverticulosis without diverticulitis. Appendix: No evidence of appendicitis. Intraperitoneal space: There is diffuse fluid within the abdominal and pelvic peritoneum consistent with ascites. The volume of ascites is stable comparing to prior examination. Vasculature: Unremarkable. No abdominal aortic aneurysm. Lymph nodes: Unremarkable. No enlarged lymph nodes. Urinary bladder: Unremarkable as visualized. Reproductive: Unremarkable as visualized. Bones/joints: Unremarkable. No acute fracture. Soft tissues: Unremarkable. CT/CT abdomen pelvis w con* [id number] IMPRESSION: 1. Diffuse ascites stable since prior 2. Small bilateral kidneys stable since prior 3. Hepatosplenomegaly. 4. Colonic diverticulosis without diverticulitis.
--- NOTE | 2021-06-16 14:37 | ED_ITS ---
HPI - SOB/Dyspnea General: Chief Complaint: Shortness of Breath/Dyspnea Stated Complaint: sob Time Seen by Provider: 06/16/21 14:23 Source: patient Mode of arrival: ambulatory Limitations: no limitations History of Present Illness: HPI Narrative: 40-year-old male has a history end-stage renal disease is currently on dialysis goes Thursday he is also has liver issues in the past along with ascites and has to have monthly paracenteses he states he had increased distention to his abdomen with pain. States pain is a 5 out of 10 has had some mild shortness of breath as well. Denies any worsening improving factors denies any fever denies any vomiting or diarrhea. Associated symptoms: Reports abdominal pain; Deny chest pain, fever(s), nausea or vomiting Review of Systems Const: Denies: fever(s), chills, body aches or change in appetite Eyes: Denies: blurry vision or eye discomfort ENMT: Denies: throat pain or dental pain Card: Denies: chest pain Resp: Reports: dyspnea GI: Reports: abdominal pain; Denies: nausea, vomiting or diarrhea : Denies: dysuria Musc: Denies: neck pain or back pain Skin/Breast: Denies: rash Neuro: Denies: headache(s) Psych: Denies: depression [place]/Lymph: Denies: easy bruising All/Imm: Denies: urticaria PFSH ED PFSH: Medical History Abdominal ascites Acute diastolic CHF (congestive heart failure) Anasarca Anemia Anemia Anxiety with depression Arteriovenous fistula for hemodialysis in place, secondary Congestive heart failure COPD (chronic obstructive pulmonary disease) Current smoker Degenerative disc disease, lumbar End-stage renal disease on hemodialysis ESRD (end stage renal disease) Gross hematuria Hematuria Hemoptysis Hepatomegaly Hyperkalemia Hypertension Hypertensive emergency PHT (pulmonary hypertension) Surgical History H/O hand surgery Amputation right 2&3 fingers 2017 History of adenoidectomy Family History Father No problems noted. Other Hypertension Social History Smoking and tobacco status: current every day smoker Alcohol intake: never Marital status: Number of children: 3 Current occupational status: disabled History of recent travel: No Physical Exam Const: COMMON NORMALS: patient oriented x3 and healthy appearing GENERAL APPEARANCE: ill appearing HENMT: COMMON NORMALS: normocephalic and atraumatic HEAD & SCALP: n ormocephalic and atraumatic Eye: COMMON NORMALS: Equal, round and reactive pupils present and EOMs intact bilaterally PUPIL: Yes Equal, round and reactive pupils present Neck/C-Spine: COMMON NORMALS: full ROM and supple Chest: COMMONS NORMALS: normal inspection of the chest and normal palpation of entire chest wall Resp: COMMON NORMALS: normal respiratory effort, No retractions, No use of accessory muscles and clear to auscultation bilaterally AUSCULTATION: clear to auscultation bilaterally Cardio: COMMON NORMALS: regular rate, regular rhythm and No murmurs present (Cardio) RATE: regular rate RHYTHM: regular rhythm GI: COMMON NORMALS: no masses OTHER: diffuse tenderness mild in nature, abdominal distention Extremity: COMMON NORMALS: normal to inspection and full ROM Neuro: COMMON NORMALS: patient oriented x3, moves all extremities and no focal motor deficits Psych: COMMON NORMALS: mental status grossly normal, Normal thought process present and cooperative THOUGHT PROCESS: Normal thought process present Skin: COMMON NORMALS: no rashes or lesions noted and no wounds GENERAL SKIN EXAM: no rashes or lesions noted Course Vital Signs: Vital signs: Vital Signs Temperature 97.7 F 06/16/21 14:19 Pulse Rate 67 06/16/21 16:15 Respiratory Rate 13 06/16/21 16:15 Blood Pressure 173/116 06/16/21 16:15 Pulse Oximetry 94 06/16/21 16:15 MDM - SOB/Dyspnea Medical Decision Making Patient presents with abdominal pain that is chronic in nature from ascites. He has no signs of spontaneous bacterial peritonitis his white count here is normal CT of his abdomen is normal as well. He does have chronic hypertension as well his blood pressure is improved he is to get dialysis is scheduled tomorrow he is to follow-up with his PCP and we will also try to set up him an outpatient paracenteses. He is return if worsening he understands agrees to plan. Lab Data : 06/16/21 14:37 06/16/21 14:37 Labs/Radiology: Radiology Impressions Abdomen/Pelvis CT 06/16/21 14:35 IMPRESSION: 1. Diffuse ascites stable since prior 2. Small bilateral kidneys stable since prior 3. Hepatosplenomegaly. 4. Colonic diverticulosis without diverticulitis. Chest X-Ray 06/16/21 14:35 IMPRESSION: No acute findings. Laboratory Results WBC 6.8 10^3/uL (4.0-10.0) 06/16/21 14:37 RBC 3.47 10^6/uL (4.1-5.3) L 06/16/21 14:37 Hgb 9.7 g/dL (11.7-16.6) L 06/16/21 14:37 Hct 30.6 % (42.0-52.0) L 06/16/21 14:37 MCV 88.2 fl (80-94) 06/16/21 14:37 MCH 28.0 pg (28.0-34.0) 06/16/21 14:37 MCHC 31.7 g/dL (30.0-36.0) 06/16/21 14:37 RDW 19.9 % (12.1-15.1) H 06/16/21 14:37 Plt Count 164 10^3/cmm (130-400) 06/16/21 14:37 MPV 10.9 fL (7.4-10.4) H 06/16/21 14:37 Neut % (Auto) 78.7 % 06/16/21 14:37 Lymph % (Auto) 8.1 % 06/16/21 14:37 [place] % (Auto) 7.8 % 06/16/21 14:37 Eos % (Auto) 4.7 % 06/16/21 14:37 Baso % (Auto) 0.6 % 06/16/21 14:37 Neut # (Auto) 5.37 10^3/uL (1.8-7.7) 06/16/21 14:37 Lymph # (Auto) 0.6 10^3/uL (0.8-4.8) L 06/16/21 14:37 [place] # (Auto) 0.5 10^3/uL (0.2-0.9) 06/16/21 14:37 Eos # (Auto) 0.3 10^3/uL (0.0-0.8) 06/16/21 14:37 Baso # (Auto) 0.0 10^3/uL (0.0-0.1) 06/16/21 14:37 Nucleated RBC % (auto) 0 % 06/16/21 14:37 Nucleated RBCs # 0.0 /100WBC 06/16/21 14:37 Sodium 129 mmol/L (136-145) L 06/16/21 14:37 Potassium 5.1 mmol/L (3.5-5.1) 06/16/21 14:37 Chloride 91 mmol/L (98-107) L 06/16/21 14:37 Carbon Dioxide 26 mmol/L (22-29) 06/16/21 14:37 Anion Gap 17.1 (5-19) 06/16/21 14:37 BUN 56 mg/dL (6-20) H 06/16/21 14:37 Creatinine 8.0 mg/dL (0.7-1.2) H* 06/16/21 14:37 GFR Calculation 7.6 mL/min (90-130) L 06/16/21 14:37 Glucose 109 mg/dL (65-115) 06/16/21 14:37 Calculated Osmolality 284 mOsm/kg (285-295) L 06/16/21 14:37 Lactate 1.1 mmol/L (0.5-2.2) 06/16/21 14:37 Calcium 10.2 mg/dL (8.5-10.5) 06/16/21 14:37 Total Bilirubin 0.6 mg/dL (0.15-1.2) 06/16/21 14:37 AST 48 U/L (0-40) H 06/16/21 14:37 ALT 235 U/L (0-41) H 06/16/21 14:37 Alkaline Phosphatase 158 IU/L (40-130) H 06/16/21 14:37 Total Protein 7.7 g/dL (6.6-8.7) 06/16/21 14:37 Albumin 3.5 g/dL (3.5-5.2) 06/16/21 14:37 Globulin 4.2 g/dL (1.3-4.6) 06/16/21 14:37 EKG Data EKG 1: I personally reviewed and interpreted this EKG as follows: EKG Interpretation Date: 06/16/21 EKG interpretation time: 14:56 Interpretation: nsr hr [address] or t wave abnormalities qrs 119 qtc 444 Discharge Plan Discharge Patient Disposition: Home Clinical Impression: ESRD (end stage renal disease), Abdominal pain Condition: Stable Prescriptions: No Action Incruse Ellipta 62.5 mcg/actuation blister with device 1 inh INHALATION DAILY 0RF pantoprazole 40 mg tablet,delayed release (DR/EC) 40 mg PO BID 0RF sevelamer carbonate [Renvela] 800 mg tablet See Rx Instructions .ROUTE .COMPLEX 0RF Rx Instructions: 4 TABS PO TID AND ONE TAB BID WITH SNACKS trazodone 50 mg tablet 50 mg PO BEDTIME PRN (Reason: Sleep) 0RF Rx Instructions: pt states he has this medication but doesnt take ext med history shows last filled 05/01/21 30d/s fluticasone propionate 50 mcg/actuation spray,suspension 2 spray INTRANASAL DAILY PRN (Reason: Allergy Symptoms) 0RF albuterol sulfate [ProAir HFA] 90 mcg/actuation Hfa Aerosol Inhaler 2 puff INHALATION QID PRN (Reason: Shortness Of Breath) Qty: 2 4RF hydralazine 10 mg tablet 10 mg PO Q8H 0RF carvedilol 25 mg tablet 50 mg PO BID 0RF isosorbide mononitrate 60 mg tablet extended release 24 hr 60 mg PO QAM 0RF amlodipine 10 mg tablet 10 mg PO DAILY 0RF Xifaxan 550 mg tablet 550 mg PO BID 0RF Discharge Orders: Discharge ED (Routine); Ordered 06/16/21 Ordered By: Dayana Nunez Referrals: Mal Junior [Primary Care Provider] - Discharge Diet: Advance as tolerated Discharge Activity: Resume usual activity Patient Instructions: Abdominal Pain (ED) Coding Level of Care Code ED Radio Station Engineer for Chg Fwd Exam Comprehensive
--- NOTE | 2021-06-16 14:41 | ECG_ITS ---
[facility] Test Date: 2021-06-16 Pat Name: Mal Gibbs Department: Room: Gender: Male Guardian Family Member: : 1980 Requested By: Dayana Nunez Order Number: [id number] Mohini MD: Brijesh King M.D. 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 [id number]
[2021-06-16] MEDS: HYDROmorphone 1 mg/mL INJ 1 mL IVP (14:48)
[2021-06-16] MEDS: labetalol 5 mg/mL SDV 20mL 10 MG IVP (14:48)
[2021-06-16] MEDS: ondansetron 2 mg/ML SDV 2 mL 4 MG IVP (14:49)
[2021-06-16 14:54] LABS: Basophils % 0.6 %; Eosinophils # 0.3 10^3/uL (0.0-0.8); Eosinophils % 4.7 %; Hematocrit 30.6 % (42.0-52.0); Hemoglobin 9.7 g/dL (11.7-16.6); Lymphocytes # 0.6 10^3/uL (0.8-4.8); Lymphocytes % 8.1 %; Mean Corpuscular HGB Conc 31.7 g/dL (30.0-36.0); Mean Corpuscular Volume 88.2 fl (80-94); Mean Platelet Volume 10.9 fL (7.4-10.4); Monocytes # 0.5 10^3/uL (0.2-0.9); Monocytes % 7.8 %; Neutrophils # 5.37 10^3/uL (1.8-7.7); Neutrophils % 78.7 %; Nucleated Red Blood Cells % 0 %; Platelet Count 164 10^3/cmm (130-400); Red Blood Count 3.47 10^6/uL (4.1-5.3); Red Cell Distribution Width 19.9 % (12.1-15.1); White Blood Count 6.8 10^3/uL (4.0-10.0)
[2021-06-16] MEDS: labetalol 5 mg/mL SDV 20mL 20 MG IVP ×2 (15:07→16:10)
[2021-06-16] MEDS: iodixanol 320 mg/mL 100mL Btl IV (15:22)
[2021-06-16 15:28] LABS: Lactate (Lactic Acid level) 1.1 mmol/L (0.5-2.2)
[2021-06-16 15:29] LABS: Alanine Aminotransferase 235 U/L (0-41); Albumin Level 3.5 g/dL (3.5-5.2); Alkaline Phosphatase 158 IU/L (40-130); Anion Gap 17.1 (5-19); Aspartate Amino Transferase 48 U/L (0-40); Blood Urea Nitrogen 56 mg/dL (6-20); Calcium 10.2 mg/dL (8.5-10.5); Carbon Dioxide 26 mmol/L (22-29); Chloride 91 mmol/L (98-107); Globulin 4.2 g/dL (1.3-4.6); Glomerular Filtration Rate 7.6 mL/min (90-130); Glucose 109 mg/dL (65-115); Osmolality Calculated 284 mOsm/kg (285-295); Potassium 5.1 mmol/L (3.5-5.1); Sodium 129 mmol/L (136-145); Total Bilirubin 0.6 mg/dL (0.15-1.2); Total Protein 7.7 g/dL (6.6-8.7)
[2021-06-16] MEDS: hyDRALAzine 20 mg/mL INJ 1 mL 10 MG IVP (15:53)
[2021-06-16] MEDS: morphine 4 mg/mL SDV 1 mL IVP (16:10)
--- NOTE | 2021-06-18 11:16 | DCPLANNER ---
Addendum entered by Sharmin Scott 08/09/21 08:02: Patient had paracenteses scheduled for 07.25.21 - appointment cancelled Addendum entered by Sharmin Scott 06/27/21 19:11: parking manager received conformation that centralized scheduling has received the order. Patient has an appointment scheduled for July at 12:00, patient is aware of appointment. Original Note: parking manager had message to schedule an outpatient paracenteses. parking manager faxed signed order to centralized scheduling, who will call patient with appointment information.
== END 2021-06-16 16:56 | disposition home or self-care (01) ==
PROVIDERS: Emergency Provider Emergency Medicine; PCP Family Medicine
DX: R10.9 Unspecified abdominal pain (principal); I13.2 Hypertensive heart and chronic kidney disease with heart failure and with stage 5 chronic kidney disease, or end stage renal disease; N18.6 End stage renal disease; I50.31 Acute diastolic (congestive) heart failure; J44.9 Chronic obstructive pulmonary disease, unspecified; F17.210 Nicotine dependence, cigarettes, uncomplicated; Z99.2 Dependence on renal dialysis
CPT/HCPCS: 71045; 74177; 80053; 83605; 85025; 93005; 96374; 96375; 96376; 99284; J0360; J1170; J2270; J2405; J3490; Q9967

== ENCOUNTER 2021-06-26 09:03 | Inpatient (IN) | payer MEDICARE, MEDICAID, SELFPAY ==
[2021-06-26] VITALS (14 sets, daily range): BP systolic 160–229; BP diastolic 90–142; PULSE 63–104; RESP 14–24; TEMP 36.4–37.2; O2SAT 92–100; BMI 22.4
--- NOTE | 2021-06-26 | US_ITS ---
WS: [id number] RIGHT UPPER QUADRANT ULTRASOUND HISTORY: EVAL FOR ASCITES, PV FLOW, RUQ PAIN COMPARISON: 06/11/2021 Liver: 22.9 cm in length. Liver is moderately enlarged. No mass identified. Mild increased echogenici ty throughout. Portal Vein: Normal hepatopetal flow with monophasic waveform. Gallbladder: Normally distended gallbladder with no stones. Mild wall thickening on the basis of asci kandi. CBD: 0.6 cm Pancreas: Normal size and echogenicity. Right kidney: 6.4 cm in length. Small atrophic kidney with diffuse cortical thinning. No hydronephros is. Aorta and IVC: Unremarkable abdominal aorta and IVC. There is a small amount of ascites throughout the peritoneal cavity in all 4 quadrants. No sufficient pocket in order to perform paracentesis safely. US/US abdomen limited [id number] IMPRESSION: 1. Small amount of ascites throughout the peritoneal cavity. Insufficient to p erform paracentesis safely. 2. Hepatomegaly. 3. Severe atrophy RIGHT kidney.
--- NOTE | 2021-06-26 09:23 | XR_ITS ---
WS: [id number] Exam: XR chest 1V portable [id number] Date/Time of Exam: 06/26/2021 9:24 AM Reason For Exam: dyspnea/cough Comparison 02/25/2021 There is cardiac enlargement unchanged. Pulmonary vascularity is increased. No pleural effusions or p neumothorax. No consolidating infiltrates. The mediastinum and bony thorax are unremarkable. Monitori ng leads superimpose the chest. XR/XR chest 1V portable [id number] IMPRESSION: 1. Cardiac enlargement with increased pulmonary vascularity. The pattern is unc hanged. 2. No acute infiltrate or other significant finding.
--- NOTE | 2021-06-26 09:23 | ECG_ITS ---
[facility] Test Date: 2021-06-26 Pat Name: Mal Gibbs Department: Room: Gender: Male Faith Doctor: : 1980 Requested By: Pato Spencer Order Number: [id number] Mohini MD: Ruba Hussein M.D. 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 [id number]
--- NOTE | 2021-06-26 09:32 | ED_ITS ---
HPI - SOB/Dyspnea General: Chief Complaint: Shortness of Breath/Dyspnea Stated Complaint: SOB/ HTN Time Seen by Provider: 06/26/21 09:09 Source: patient Mode of arrival: EMS History of Present Illness: HPI Narrative: 40-year-old male presents to the emergency room via EMS from nephrology clinic. He had been receiving his usual dialysis run but custodial through he began complaining of severe shortness of breath. He was brought by EMS to the ER. Patient is often here in the emergency room he does have a history of some heart failure. He is oxygen dependent and becomes short of breath he insists on plac ing nasal cannula in his mouth. He denies any chest pain at this time. MD elicited complaint: shortness of breath Pertinent past history: congestive heart failure, IV drug use and other (End- stage renal disease) Onset (ago): minute(s) Context: medication noncompliance Timing: progressively worsening Severity: severe Exacerbating factors: exertion Relieving factors: oxygen and rest Known history of: congestive heart failure and other (End-stage renal disease) Associated symptoms: Reports chest congestion, cough and orthopnea; Deny abdominal pain, chest pain, diaphoresis, dizziness, extremity pain, fever(s), hemoptysis, lightheadedness, myalgias, nausea, palpitations, paresthesias, polydipsia, polyuria, rash, sense of impending doom, syncope or vomiting Treatment prior to arrival: oxygen and bronchodilator Review of Systems Const: Denies: fever(s) or diaphoresis ENMT: Denies: throat pain, ear or mastoid pain, nasal discharge or nasal congestion Card: Reports: orthopnea; Denies: chest pain, palpitations, lightheadedness or syncope Resp: Reports: chest congestion; Denies: hemoptysis GI: Denies: abdominal pain, nausea or vomiting : Denies: flank pain, dysuria, urinary frequency or urinary urgency Musc: Denies: extremity pain Skin/Breast: Denies: rash or pruritus Neuro: Denies: dizziness Endo: Denies: polyuria or polydipsia PFSH ED PFSH: Medical History Abdominal ascites Acute diastolic CHF (congestive heart failure) Anasarca Anemia Anemia Anxiety with depression Arteriovenous fistula for hemodialysis in place, secondary Congestive heart failure COPD (chronic obstructive pulmonary disease) Current smoker Degenerative disc disease, lumbar End-stage renal disease on hemodialysis ESRD (end stage renal disease) Gross hematuria Hematuria Hemoptysis Hepatomegaly Hyperkalemia Hypertension Hypertensive emergency PHT (pulmonary hypertension) Surgical History H/O hand surgery Amputation right 2&3 fingers 2017 History of adenoidectomy Family History Father No problems noted. Other Hypertension Social History Smoking and tobacco status: current every day smoker Alcohol intake: never Marital status: Number of children: 3 Current occupational status: disabled History of recent travel: No Physical Exam Const: COMMON NORMALS: no acute distress GENERAL APPEARANCE: cooperative and comfortable ORIENTATION/CONSCIOUSNESS: Yes awake, Yes oriented to person, Yes oriented to place and Yes oriented to time HENMT: COMMON NORMALS: normocephalic, atraumatic, hearing grossly normal bilaterally, external ears normal, EAC's normal, TM's normal bilaterally, Normal nasal mucous membranes and turbinates present, moist oral mucous membranes and oropharynx normal HEAD & SCALP: normocephalic and atraumatic NOSE: Normal nasal mucous membranes and turbinates present EXTERNAL EAR: Yes external ears normal EXTERNAL AUDITORY CANAL: EAC's normal TYMPANIC MEMBRANE: TM's normal bilaterally Eye: COMMON NORMALS: Equal, round and reactive pupils present, EOMs intact bilaterally, conjunctivae normal and no scleral icterus CONJUNCTIVA: Yes conjunctivae normal PUPIL: Yes Equal, round and reactive pupils present Neck/C-Spine: COMMON NORMALS: full ROM, no lymphadenopathy and supple Resp: AUSCULTATION: crackles and wheezes Cardio: RATE: tachycardic HEART SOUNDS: no murmurs GI: COMMON NORMALS: Soft to palpation and No hepatosplenomegaly present AUSCULTATION: Yes normoactive bowel sounds PALPATION: Yes Soft to palpation, No Tenderness to palpation present (GI), No Guarding due to palpation present (GI) and Yes No hepatosplenomegaly present : COMMON NORMALS: Yes no CVA tenderness BLADDER/KIDNEY EXAM: Yes no CVA tenderness Back/Pelvis: COMMON NORMALS: no CVA tenderness Extremity: COMMON NORMALS: normal to inspection, capillary refill normal and no calf tenderness Neuro: SENSORIUM/ORIENTATION: Yes oriented to person, Yes oriented to place and Yes oriented to time Course Vital Signs: Vital signs: Vital Signs Temperature 99.4 F 06/28/21 04:00 Pulse Rate 72 06/28/21 05:43 Respiratory Rate 18 06/28/21 04:16 Blood Pressure 168/92 06/28/21 05:11 Pulse Oximetry 96 06/28/21 04:00 MDM - SOB/Dyspnea Medical Decision Making Acute congestive heart failure in the setting of end-stage renal disease. Elect rolytes for this particular patient are good at the moment however I believe he needs more fluid drawn off via diuresis. Patient was recently treated evidently with a paracentesis he has some mild abdominal discomfort is very vague will going get an ultrasound reviewed his laboratory studies discussed with hospitalist and with nephrology will admit. He also needs further evaluation for PE. He had pulmonary hypertension on his last echo. Medical Records I reviewed the patient's medical records. Lab Data I reviewed the patient's lab results. : 06/28/21 04:56 06/28/21 04:56 Labs/Radiology: Radiology Impressions Abdomen Ultrasound 06/26/21 00:00 IMPRESSION: 1. Small amount of ascites throughout the peritoneal cavity. Insufficient to perform paracentesis safely. 2. Hepatomegaly. 3. Severe atrophy RIGHT kidney. Chest X-Ray 06/26/21 09:23 IMPRESSION: 1. Cardiac enlargement with increased pulmonary vascularity. The pattern is unchanged. 2. No acute infiltrate or other significant finding. Chest CTA 06/26/21 11:16 IMPRESSION: 1. No pulmonary embolism. 2. Small pericardial and very small bilateral pleural effusions. 3. Small amount of ascites noted in the upper abdomen. 4. Reactive mediastinal and hilar lymphadenopathy. 5. Moderate cardiomegaly, greatest involving the LEFT heart chambers. Laboratory Results WBC 4.7 10^3/uL (4.0-10.0) 06/26/21 09:30 RBC 3.53 10^6/uL (4.1-5.3) L 06/26/21 09:30 Hgb 9.9 g/dL (11.7-16.6) L 06/26/21 09:30 Hct 30.9 % (42.0-52.0) L 06/26/21 09:30 MCV 87.5 fl (80-94) 06/26/21 09:30 MCH 28.0 pg (28.0-34.0) 06/26/21 09:30 MCHC 32.0 g/dL (30.0-36.0) 06/26/21 09:30 RDW 21.8 % (12.1-15.1) H 06/26/21 09:30 Plt Count 205 10^3/cmm (130-400) 06/26/21 09:30 MPV 10.1 fL (7.4-10.4) 06/26/21 09:30 Neut % (Auto) 71.0 % 06/26/21 09:30 Lymph % (Auto) 9.0 % 06/26/21 09:30 [place] % (Auto) 10.3 % 06/26/21 09:30 Eos % (Auto) 8.0 % 06/26/21 09:30 Baso % (Auto) 1.3 % 06/26/21 09:30 Neut # (Auto) 3.30 10^3/uL (1.8-7.7) 06/26/21 09:30 Lymph # (Auto) 0.4 10^3/uL (0.8-4.8) L 06/26/21 09:30 [place] # (Auto) 0.5 10^3/uL (0.2-0.9) 06/26/21 09:30 Eos # (Auto) 0.4 10^3/uL (0.0-0.8) 06/26/21 09:30 Baso # (Auto) 0.1 10^3/uL (0.0-0.1) 06/26/21 09:30 Nucleated RBC % (auto) 0 % 06/26/21 09:30 Nucleated RBCs # 0.0 /100WBC 06/26/21:30 PT 16.00 SECONDS (12.1-14.9) H 06/26/21 09:30 INR 1.24 (0.8-1.2) H 06/26/21 09:30 Specimen Type Arterial 06/26/21 09:21 Sample Site Radial, right 06/26/21:21 ABG pH 7.47 (7.35-7.45) H 06/26/21 09:21 ABG pCO2 42.0 mmHg (35-45) 06/26/21 09:21 ABG pO2 62.9 mmHg (80.0-100.0) L 06/26/21 09:21 ABG HCO3 30.3 mmol/L (22-26) H 06/26/21 09:21 ABG O2 Saturation 94.3 06/26/21 09:21 ABG Base Excess 6.0 mmol/L (-2.0-2.0) H 06/26/21 09:21 Alexei Test Pos 06/26/21 09:21 A-a O2 Gradient 15.2 mmHg (5-10) H 06/26/21 09:21 Hematocrit 30.0 % (42-52) L 06/26/21 09:21 Hgb O2 Saturation 91.0 % (95-100) L 06/26/21 09:21 Carboxyhemoglobin 2.8 %THgb (0.4-20.1) 06/26/21 09:21 Methemoglobin 0.6 % (0.4-1.5) 06/26/21 09:21 Total Hemoglobin 9.8 g/dL (14-18) L 06/26/21 09:21 Sodium 135.0 mmol/L (131-143) 06/26/21 09:21 Potassium 4.4 mmol/L (3.5-5.0) 06/26/21 09:21 Glucose 76.0 mg/dL (70-115) 06/26/21 09:21 Ionized Calcium 1.2 mmol/L (1.1-1.4) 06/26/21 09:21 O2 Delivery Device Nc 06/26/21 09:21 O2 Liters/Min 3.0 % 06/26/21 09:21 FiO2 32.0 % 06/26/21 09:21 Plating Inspector ID [id number] 06/26/21 09:21 Sodium 135 mmol/L (136-145) L 06/26/21 09:30 Potassium 4.6 mmol/L (3.5-5.1) 06/26/21 09:30 Chloride 94 mmol/L (98-107) L 06/26/21 09:30 Carbon Dioxide 28 mmol/L (22-29) 06/26/21 09:30 Anion Gap 17.6 (5-19) 06/26/21 09:30 BUN 29 mg/dL (6-20) H 06/26/21 09:30 Creatinine 5.2 mg/dL (0.7-1.2) H 06/26/21 09:30 GFR Calculation 12.5 mL/min (90-130) L 06/26/21 09:30 Glucose 70 mg/dL (65-115) 06/26/21 09:30 Calculated Osmolality 284 mOsm/kg (285-295) L 06/26/21 09:30 Lactic Acid 0.8 mmol/L (0.5-2.2) 06/26/21 09:30 Calcium 9.2 mg/dL (8.5-10.5) 06/26/21 09:30 Total Bilirubin 0.7 mg/dL (0.15-1.2) 06/26/21 09:30 AST 11 U/L (0-40) 06/26/21 09:30 ALT 23 U/L (0-41) 06/26/21 09:30 Alkaline Phosphatase 143 IU/L (40-130) H 06/26/21 09:30 Creatine Kinase 33 U/L (39-308) L 06/26/21 09:30 Troponin T Baseline 92 ng/L (0-15) H 06/26/21 09:30 Total Protein 6.6 g/dL (6.6-8.7) 06/26/21 09:30 Albumin 3.7 g/dL (3.5-5.2) 06/26/21 09:30 Globulin 2.9 g/dL (1.3-4.6) 06/26/21 09:30 Discharge Plan Discharge Patient Disposition: Admitted As Inpatient Admit Provider: Db Bauman Clinical Impression: Acute diastolic CHF (congestive heart failure), ESRD (end stage renal disease), COPD (chronic obstructive pulmonary disease), Hypertension, PHT (pulmonary hypertension) Condition: Stable Coding Level of Care Code 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
[2021-06-26 09:33] LABS: ABG PH Result 7.47 (7.35-7.45); Alveolar-Arterial Oxygen Gradi 15.2 mmHg (5-10); Blood Gas Allen Test Pos; Blood Gas Operator Identificat glc; Blood Gas Sample Site Radial, right; Blood Gas Sample Type Arterial; Carboxyhemoglobin 2.8 %THgb (0.4-20.1); HCO3 ABG 30.3 mmol/L (22-26); Ionized Calcium Level - ABG 1.2 mmol/L (1.1-1.4); Methemoglobin 0.6 % (0.4-1.5); Oxygen Device NC; Oxygen Saturation ABG 94.3; PO2 ABG 62.9 mmHg (80.0-100.0); Potassium Level - ABG 4.4 mmol/L (3.5-5.0); Total Hemoglobin 9.8 g/dL (14-18)
[2021-06-26] MEDS: labetalol 5 mg/mL SDV 20mL 10 MG IVP ×2 (09:36→10:32)
[2021-06-26] MEDS: hyDRALAzine 20 mg/mL INJ 1 mL IVP (09:37)
--- NOTE | 2021-06-26 09:42 | PC.NURSE ---
PATIENT STATES HE DOES NOT MAKE URINE ANY MORE
[2021-06-26 09:59] LABS: Basophils # 0.1 10^3/uL (0.0-0.1); Basophils % 1.3 %; Eosinophils # 0.4 10^3/uL (0.0-0.8); Hematocrit 30.9 % (42.0-52.0); Hemoglobin 9.9 g/dL (11.7-16.6); Lymphocytes # 0.4 10^3/uL (0.8-4.8); Mean Corpuscular Volume 87.5 fl (80-94); Mean Platelet Volume 10.1 fL (7.4-10.4); Monocytes # 0.5 10^3/uL (0.2-0.9); Monocytes % 10.3 %; Nucleated Red Blood Cells % 0 %; Platelet Count 205 10^3/cmm (130-400); Red Blood Count 3.53 10^6/uL (4.1-5.3); Red Cell Distribution Width 21.8 % (12.1-15.1); White Blood Count 4.7 10^3/uL (4.0-10.0)
[2021-06-26 10:19] LABS: Troponin(5th) Baseline 92 ng/L (0-15)
[2021-06-26 10:20] LABS: Alanine Aminotransferase 23 U/L (0-41); Albumin Level 3.7 g/dL (3.5-5.2); Alkaline Phosphatase 143 IU/L (40-130); Anion Gap 17.6 (5-19); Aspartate Amino Transferase 11 U/L (0-40); Blood Urea Nitrogen 29 mg/dL (6-20); Calcium 9.2 mg/dL (8.5-10.5); Carbon Dioxide 28 mmol/L (22-29); Chloride 94 mmol/L (98-107); Creatine Phosphokinase 33 U/L (39-308); Globulin 2.9 g/dL (1.3-4.6); Glomerular Filtration Rate 12.5 mL/min (90-130); Glucose 70 mg/dL (65-115); Lactic Sepsis W/Reflex 0.8 mmol/L (0.5-2.2); Osmolality Calculated 284 mOsm/kg (285-295); Potassium 4.6 mmol/L (3.5-5.1); Sodium 135 mmol/L (136-145); Total Bilirubin 0.7 mg/dL (0.15-1.2); Total Protein 6.6 g/dL (6.6-8.7)
[2021-06-26] MEDS: cloNIDine 0.1 mg Tablet PO (10:35)
[2021-06-26] MEDS: nitroglycerin 1 gm/inch oint Pkt 2 INCH TOPICAL (10:35)
--- NOTE | 2021-06-26 11:16 | CT_ITS ---
WS: [id number] CT CHEST ANGIOGRAPHY WITH REFORMATS HISTORY: dyspnea TECHNIQUE: Contiguous axial images are obtained through the chest during arterial injection of intrav enous contrast. Images are reconstructed to evaluate the pulmonary arteries. MIP imaging also reviewe d. All CT scans at [facility] use at least one of these dose optimization techniques: automat ed exposure control; mA and/or kV adjustment per patient size (includes targeted exams where dose is matched to clinical indication); or iterative reconstruction. CONTRAST: Visipaque 320; 95 mL IV. DLP: 1062.83 mGy.cm COMPARISON: 03/01/2021, 02/25/2021 Good opacification of the pulmonary arteries. No central pulmonary embolism. Pulmonary artery is enla rged measuring 4.2 cm. Normal-sized thoracic aorta. No dissection or aneurysm. Heart is moderately en larged. Most significant enlargement of the LEFT heart chambers. No RIGHT heart strain. Small pericar dial effusion. Small bilateral pleural effusions. There is mild pulmonary venous congestion. No pneum onia. Mediastinal and hilar enlarged lymph nodes. RIGHT paratracheal lymph node at 1.4 cm. RIGHT hilar lymp h node 2.1 cm. LEFT hilar lymph node 1.0 cm. There is additional lymphadenopathy extending along the pulmonary arteries into the lower lung cantu. Prominent lymphoid tissue was also present on a prior study from 02/25/2021 with minimal progression. This is probably reactive. Bilateral gynecomastia. Soft tissue anasarca. Small amount of ascites adjacent to the liver and splee n. Liver is enlarged. Healed rib fracture posterior RIGHT thorax. CT/CT angio chest PE protcl [id number] IMPRESSION: 1. No pulmonary embolism. 2. Small pericardial and very small bilateral pleural effusions. 3. Small amount of ascites noted in the upper abdomen. 4. Reactive mediastinal and hilar lymphadenopathy. 5. Moderate cardiomegaly, greatest involving the LEFT heart chambers.
--- NOTE | 2021-06-26 11:38 | PM.CONSULT ---
Providers/Reason For Consult Consulting Physician/Specialty*: tona rosario md Reason for Consult*: ESRD care Requesting Physician: Dr. Jackson Bauman Attending Physician: Dr. Jackson Bauman Primary Care Provider: Mal Junior History of Present Illness History of Present Illness Mal Gibbs is a 40 year old male ESRD, cirrhosis/ liver inflammation, pulm htn. Recent hospitalization on 06/10/21- 06/12/21. Pt is being admitted w/ SOB, edema, HTN, CP, weajness. Renal called for ESRD care and HD. Review of Systems Narrative: weak, sob, swollen, abd distention, leg edema, orthopnea, PND. Medications/Allergies Home Medications Medication Instructions Recorded Confirmed Last Taken Type umeclidinium 62.5 mcg/actuation 1 inh INHALATION DAILY 05/03/20 06/10/21 05/16/21 History blister powder for inhalation (Incruse Ellipta) pantoprazole 40 mg tablet,delayed 40 mg PO BID 02/25/21 06/10/21 05/16/21 History release sevelamer carbonate 800 mg tablet See Rx Instructions .ROUTE .COMPLEX 02/25/21 06/10/21 05/16/21 History (Renvela) fluticasone propionate 50 2 spray INTRANASAL DAILY PRN 05/27/21 06/10/21 Unknown History mcg/actuation nasal spray,suspension trazodone 50 mg tablet 50 mg PO BEDTIME PRN 05/27/21 06/10/21 Unknown History albuterol sulfate 90 mcg/actuation 2 puff INHALATION QID PRN #2 g 06/04/21 06/10/21 Unknown Rx aerosol inhaler (ProAir HFA) amlodipine 10 mg tablet 10 mg PO DAILY 06/10/21 06/10/21 Unknown History carvedilol 25 mg tablet 50 mg PO BID 06/10/21 06/10/21 Unknown History hydralazine 10 mg tablet 10 mg PO Q8H 06/10/21 06/10/21 Unknown History isosorbide mononitrate 60 mg 60 mg PO QAM 06/10/21 06/10/21 Unknown History tablet,extended release 24 hr rifaximin 550 mg tablet (Xifaxan) 550 mg PO BID 06/10/21 06/10/21 Unknown History Allergies Allergy/AdvReac Type Severity Reaction Status Date / Time nifedipine Allergy ALGY-Swell Verified 06/10/21 09:56 Lip/Tongue/Throat PFSH Acute PFSH: Medical History Abdominal ascites Acute diastolic CHF (congestive heart failure) Anasarca Anemia Anemia Anxiety with depression Arteriovenous fistula for hemodialysis in place, secondary Congestive heart failure COPD (chronic obstructive pulmonary disease) Current smoker Degenerative disc disease, lumbar End-stage renal disease on hemodialysis ESRD (end stage renal disease) Gross hematuria Hematuria Hemoptysis Hepatomegaly Hyperkalemia Hypertension Hypertensive emergency PHT (pulmonary hypertension) Surgical History H/O hand surgery Amputation right 2&3 fingers 2017 History of adenoidectomy Family History Father No problems noted. Other Hypertension Social History Smoking and tobacco status: current every day smoker Alcohol intake: never Marital status: Number of children: 3 Current occupational status: disabled History of recent travel: No Vitals/I&O/Wt Last Vital Signs Temp 99.0 F 06/26/21 09:04 Pulse 75 06/26/21 10:30 Resp 20 H 06/26/21 10:12 BP 184/117 06/26/21 10:35 Pulse Ox 99 06/26/21 10:30 Weight last 48 hrs Weight 77.2 kg Physical Exam Narrative: SOB, uncomfortable on oxygen vs noted- BP high lungs dull bases heart reg, +serene abd soft, nt, distended, + bs ext b/l edema LUE AVF w/ thrill and bruit neuro-a,a, o x 2+ Data : 06/26/21 09:30 06/26/21 09:30 A&P Assessment and plan (1) ESRD (end stage renal disease): 40 yr old man diastolic dysfunction, hepatomegaly, ESRD. pt here w/ htn and sob 1. echo: - Normal left ventricular cavity size and systolic function.? ?Severe concentric left ventricular hypertrophy. Left ventricular ?ejection fraction is estimated at 60%.? No regional wall motion ?abnormalities. Grade II diastolic dysfunction, moderately ?elevated filling pressures. Flattened septum in systole ?consistent with right ventricle pressure overload. - Moderately dilated right ventricle with moderately decreased ?right ventricle systolic function. ?- Severe pulmonary hypertension with pulmonary artery pressure ?estimated at 82 mmHg. ?- Moderately to severely increased right atrial size. ?- Moderately increased left atrial size.? ?- At least moderate tricuspid valve regurgitation. ?-When compared to previous echocardiogram dated 09/13/2020, ?right ventricle is dilated and right ventricle systolic function ?is decreased.? Pulmonary artery pressure has markedly increased ?now. -w/u per cardiology and pulm -pt for a CTA -would attempt to remove fluids w/dialysis 2. SOB, ESRD - Had partial HD today. -will do SUF- remove 3l, 3 hrs 3. anemia- monitor hgb 4. LFT's improved 5. htn- consider ARB/ ron-i. -. max fluid removal on HD 4. met alkalosis- from partial HD seen and examined w/ rN -telehealth visit informed consent for telehealth obtained from pt discussed w/ Drs. Rivera and Mitul time spent 50 min Status: Acute Plan see above Consult Attestations Medical Necessity Statement: diastolic dysfunction, sob, volume overload, htn Time Spent in Patient Care: Greater than 35 minutes (>than 50% of time spent in counselling and/or direct pt care on unit). 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
[2021-06-26 11:52] LABS: Troponin 5 2HR 83.01 ng/L (0-15)
--- NOTE | 2021-06-26 12:00 | PM.HP ---
Providers/Chief Complaint Admitting Physician: Db Bauman MD Primary Care Provider: Mal Junior Chief Complaint: SOB/ HTN History of Present Illness Mal Gibbs is a 40 year old male with end-stage renal disease on hemodialysis who is receiving dialysis today and had markedly elevated blood pressure so he was sent to the emergency department. From my understanding he was also feeling short of breath. Now the patient reports he is not very short of breath on the current amount of oxygen but he is having abdominal pain. He states this is on the right side. He reports over a week ago he was hospitalized at [facility] with significant abdominal distention and had a paracentesis at that time. He does not believe he had any infection. He reports his abdomen does not feel like that today, as at that time it hurt all over. No fevers, cough, chest discomfort. He reports he has been compliant with dialysis recently. Review of Systems General: Reports: 10 or more systems reviewed and unremarkable except in HPI and below Const: Reports: fatigue and malaise; Denies: fever(s) or chills Eyes: Denies: change in vision ENMT: Denies: throat pain Card: Reports: swelling of feet/ankles and dyspnea on exertion; Denies: chest pain Resp: Reports: dyspnea GI: Reports: abdominal pain; Denies: vomiting : Denies: flank pain Musc: Denies: neck pain Skin/Breast: Denies: rash Neuro: Denies: headache(s) Psych: Denies: anxiety Endo: Denies: polyuria Jefferson/Lymph: Denies: easy bruising All/Imm: Denies: urticaria Medications/Allergies Home Medications Medication Instructions Recorded Confirmed Last Taken Type umeclidinium 62.5 mcg/actuation 1 inh INHALATION DAILY 05/03/20 06/10/21 05/16/21 History blister powder for inhalation (Incruse Ellipta) pantoprazole 40 mg tablet,delayed 40 mg PO BID 02/25/21 06/10/21 05/16/21 History release sevelamer carbonate 800 mg tablet See Rx Instructions .ROUTE .COMPLEX 02/25/21 06/10/21 05/16/21 History (Renvela) fluticasone propionate 50 2 spray INTRANASAL DAILY PRN 05/27/21 06/10/21 Unknown History mcg/actuation nasal spray,suspension trazodone 50 mg tablet 50 mg PO BEDTIME PRN 05/27/21 06/10/21 Unknown History albuterol sulfate 90 mcg/actuation 2 puff INHALATION QID PRN #2 g 06/04/21 06/10/21 Unknown Rx aerosol inhaler (ProAir HFA) amlodipine 10 mg tablet 10 mg PO DAILY 06/10/21 06/10/21 Unknown History carvedilol 25 mg tablet 50 mg PO BID 06/10/21 06/10/21 Unknown History hydralazine 10 mg tablet 10 mg PO Q8H 06/10/21 06/10/21 Unknown History isosorbide mononitrate 60 mg 60 mg PO QAM 06/10/21 06/10/21 Unknown History tablet,extended release 24 hr rifaximin 550 mg tablet (Xifaxan) 550 mg PO BID 06/10/21 06/10/21 Unknown History Allergies Allergy/AdvReac Type Severity Reaction Status Date / Time nifedipine Allergy ALGY-Swell Verified 06/10/21 09:56 Lip/Tongue/Throat PFSH Acute PFSH: Medical History (Updated 06/26/21 @ 12:10 by Db Bauman MD) Abdominal ascites Acute diastolic CHF (congestive heart failure) Anasarca Anemia Anemia Anxiety with depression Arteriovenous fistula for hemodialysis in place, secondary Congestive heart failure COPD (chronic obstructive pulmonary disease) Current smoker Degenerative disc disease, lumbar End-stage renal disease on hemodialysis ESRD (end stage renal disease) Gross hematuria Hematuria Hemoptysis Hepatomegaly Hyperkalemia Hypertension Hypertensive emergency PHT (pulmonary hypertension) Surgical History H/O hand surgery Amputation right 2&3 fingers 2017 History of adenoidectomy Family History Father No problems noted. Other Hypertension Social History Smoking and tobacco status: current every day smoker Alcohol intake: never Marital status: Number of children: 3 Current occupational status: disabled History of recent travel: No Vitals/I&O/Wt Last Vital Signs Temp 99.0 F 06/26/21 09:04 Pulse 75 06/26/21 10:30 Resp 20 H 06/26/21 10:12 BP 184/117 06/26/21 10:35 Pulse Ox 99 06/26/21 10:30 Weight last 48 hrs Weight 77.2 kg Physical Exam Narrative: General exam is a conversant male, reporting he has abdominal pain. HEENT: Pupils equally round. Oropharynx clear. Neck is supple no lymphadenopathy or thyromegaly Cardiovascular regular rate and rhythm, no murmur Lungs diminished breath sounds bilaterally. No crackles Abdomen soft. Positive bowel sounds. Tenderness right side. Liver edge generous. Extremities no cyanosis clubbing. 1+ edema is noted.. Slight amount of swelling right wrist where he reports he had an IV 1 week ago. Skin no rash Neuro no focal deficits deferred Data : 06/26/21 09:30 06/26/21 09:30 Other Labs: INR 1.24 ABG demonstrates pH 7.47, PCO2 42, PO2 62 on 3 L LFTs normal with exception of alk phos of 143 Troponin 92 with repeat of 83 Previous recent echocardiogram demonstrated severe pulmonary hypertension, preserved EF, moderate TR, moderately reduced RV function, severe LVH EKG demonstrates sinus rhythm left atrial enlargement LVH changes Chest x-ray cardiomegaly without infiltrate A&P Assessment and plan (1) Abdominal pain: Patient reports currently his biggest issue is abdominal discomfort. He has had previous recent ultrasounds and CT imaging which demonstrated thickened gallbladder wall, hepatosplenomegaly, small to moderate amount of ascites. He recently had an admission at an outside hospital where he received a paracentesis. Those records will be obtained. At this point we will proceed with doing an ultrasound to determine if he has significant ascites. If so consider paracentesis to rule out SBP. Currently he does not have a white blood cell count, and no significant fever. During the ultrasound we will also take a look at his gallbladder again, and make sure there is no evidence of hepatic/portal vein thrombosis. Overall his hepatosplenomegaly could be secondary to his heart failure. Note that his liver function tests appear improved from last admission. If fluid cannot be obtained will place on Rocephin empirically. Status: Acute (2) Hypoxia: Hypoxia is most likely secondary to acute diastolic heart failure. CTA will be obtained. Status: Acute (3) PHT (pulmonary hypertension): He has developed significant pulmonary hypertension. Although CTA has been done in the past, the worsening of the pulmonary hypertension recently warrants another CTA. Overall this may be secondary to his severe hypertension, not well controlled secondary to noncompliance with medications as well as dialysis leading to pulmonary hypertension and reduced right heart function. At last hospital stay he was to follow-up with pulmonary regarding pulmonary hypertension but this does not seem to have happened. Status: Acute (4) Acute diastolic CHF (congestive heart failure): Dialysis should improve this condition. I have spoken briefly with nephrology. They expect to remove a significant amount of fluid. Continue nitroglycerin ointment Status: Acute (5) Hypertension: Markedly elevated on admission Dialysis should improve this substantially Restart his home medications Continue nitroglycerin ointment at this time Status: Acute Plan Multiple other medical problems as outlined in past medical history Full code Heparin for DVT prophylaxis Attestations Medical Necessity Statement*: Will need greater than 2 midnight stay for evaluation and treatment of marked hypertension, acute diastolic heart failure, abdominal pain, hypoxia Coding Level of Care Code Acute Replenishment Analyst for g Fwd Diagnoses Abdominal pain R10.9 Hypoxia R09.02 PHT (pulmonary hypertension) I27.20 Acute diastolic CHF (congestive heart failure) I50.31 Hypertension I10
[2021-06-26 12:02] LABS: INR 1.24 (0.8-1.2)
[2021-06-26 13:09] LABS: Hepatitis B Surface Antigen Non-Reactive (Nonreactive); Hepatitis C Virus Antibody Non-Reactive (Nonreactive)
[2021-06-26] MEDS: iodixanol 320 mg/mL 100mL Btl IV ×2 (13:15→13:19)
[2021-06-26] MEDS: hyDRALAzine 20 mg/mL INJ 1 mL 10 MG IVP (14:05)
[2021-06-26] MEDS: acetaminophen 325 mg Tablet 650 MG PO (14:06)
[2021-06-26] MEDS: hyDRALAzine 10 mg Tablet PO ×2 (14:06→21:39)
[2021-06-26] MEDS: cefTRIAXone 1,000 MG in sodium chloride 0.9% (plus) 50 ML 100 MG IV (14:11)
[2021-06-26] MEDS: morphine 4 mg/mL SDV 1 mL 2 MG IVP ×2 (14:21→21:38)
[2021-06-26] MEDS: heparin 5,000 unit/mL INJ 1 mL 5000 UNIT SUBCUT (14:22)
[2021-06-26 14:23] LABS: Hepatitis B Surface AB > 1000.0 (11.5-1000)
--- NOTE | 2021-06-26 15:23 | ECG_ITS ---
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 Measurements Intervals Robson Rate: 73 P: 70 WA: 210 QRS: 57 QRSD: 113 T: 85 QT: 436 QTc: 481 Interpretive Statements SINUS RHYTHM WITH FIRST DEGREE AV BLOCK POSSIBLE LEFT ATRIAL ENLARGEMENT [-0.1mV P-WAVE IN V1/V2] POSSIBLE LEFT VENTRICULAR HYPERTROPHY [VOLTAGE CRITERIA PLUS LAE OR QRS WIDENING] NONSPECIFIC ST & T-WAVE ABNORMALITY PROLONGED QT INTERVAL Compared to ECG 06/26/2021 09:15:25 First degree AV block now present T-wave abnormality now present Prolonged QT interval now present ST (T wave) deviation no longer present Electronically Signed On 06-26-2021 20:12:34 MOLASSES COLORING OPERATOR by Ruba Hussein M.D. [id number]
[2021-06-26 16:03] LABS: Troponin 5 6HR 75.55 ng/L (0-15)
[2021-06-26] MEDS: pantoprazole DR 40 mg Tablet PO (18:46)
[2021-06-26] MEDS: sevelamer 800 mg Tablet 3200 MG PO (18:46)
--- NOTE | 2021-06-26 19:28 | PC.NURSE ---
1930 Patient in dialysis in bed sleeping. No distress noted. Dialysis nurse at bedside states patient is tolerating treatment well and has about 1.5 left.
[2021-06-26] MEDS: trazodone 50 mg Tablet PO (21:38)
[2021-06-26] MEDS: carvedilol 25 mg Tablet 50 MG PO (21:39)
[2021-06-27] VITALS (16 sets, daily range): BP systolic 168–188; BP diastolic 89–103; PULSE 63–90; RESP 12–24; TEMP 36.5–37.4; O2SAT 93–100
[2021-06-27] MEDS: hyDRALAzine 20 mg/mL INJ 1 mL 10 MG IVP (00:09)
--- NOTE | 2021-06-27 00:16 | PC.NURSE ---
Medicated with IVP hydralazine for elevated bp see vital signs per mar.
[2021-06-27 02:56] LABS: Basophils # 0.1 10^3/uL (0.0-0.1); Basophils % 1.4 %; Eosinophils # 0.4 10^3/uL (0.0-0.8); Eosinophils % 10.6 %; Hematocrit 30.9 % (42.0-52.0); Hemoglobin 9.8 g/dL (11.7-16.6); Lymphocytes # 0.7 10^3/uL (0.8-4.8); Lymphocytes % 16.1 %; Mean Corpuscular HGB Conc 31.7 g/dL (30.0-36.0); Mean Corpuscular Hemoglobin 28.3 pg (28.0-34.0); Mean Corpuscular Volume 89.3 fl (80-94); Mean Platelet Volume 10.5 fL (7.4-10.4); Monocytes # 0.4 10^3/uL (0.2-0.9); Monocytes % 10.6 %; Neutrophils # 2.53 10^3/uL (1.8-7.7); Neutrophils % 61.1 %; Nucleated Red Blood Cells % 0 %; Platelet Count 204 10^3/cmm (130-400); Red Blood Count 3.46 10^6/uL (4.1-5.3); Red Cell Distribution Width 21.9 % (12.1-15.1); White Blood Count 4.2 10^3/uL (4.0-10.0)
[2021-06-27 03:20] LABS: Alanine Aminotransferase 18 U/L (0-41); Albumin Level 3.4 g/dL (3.5-5.2); Alkaline Phosphatase 133 IU/L (40-130); Anion Gap 16.4 (5-19); Aspartate Amino Transferase 9 U/L (0-40); Blood Urea Nitrogen 37 mg/dL (6-20); Calcium 9.2 mg/dL (8.5-10.5); Carbon Dioxide 28 mmol/L (22-29); Chloride 94 mmol/L (98-107); Globulin 3.2 g/dL (1.3-4.6); Glomerular Filtration Rate 9.6 mL/min (90-130); Glucose 82 mg/dL (65-115); Magnesium 2.2 mg/dL (1.7-2.3); Osmolality Calculated 284 mOsm/kg (285-295); Phosphorus 6.2 mg/dL (2.5-4.5); Potassium 5.4 mmol/L (3.5-5.1); Sodium 133 mmol/L (136-145); Total Bilirubin 0.6 mg/dL (0.15-1.2); Total Protein 6.6 g/dL (6.6-8.7)
[2021-06-27] MEDS: heparin 5,000 unit/mL INJ 1 mL 5000 UNIT SUBCUT ×2 (03:32→16:27)
[2021-06-27] MEDS: isosorbide mononitrate ER 60 mg Tablet PO (05:31)
[2021-06-27] MEDS: hyDRALAzine 10 mg Tablet PO (05:31)
[2021-06-27] MEDS: morphine 4 mg/mL SDV 1 mL 2 MG IVP ×4 (05:36→21:45)
--- NOTE | 2021-06-27 07:49 | P.PN_ITS ---
Subjective Subjective: feels better. BP remains elevated Medications: Reviewed: Yes Medication Review Details: Current Medications Acetaminophen (Acetaminophen 325 Mg Tablet) 650 mg PO Q6H PRN PRN Reason: Mild/Mod Pain Or Temp >/= 101 Last Admin: 06/26/21 14:06 Dose: 650 mg Documented by: Albuterol/Ipratropium (Ipratropium-Albuterol 3 Ml Neb) 3 ml INHALATION Q6H.RESPIRATORY PRN PRN Reason: SHORTNESS OF BREATH Amlodipine Besylate (Amlodipine 10 Mg Tablet) 10 mg PO DAILY [facility] Budesonide (Budesonide 0.5 Mg/2 Ml Neb) 0.5 mg INHALATION BID.RESPIRATORY [facility] Last Admin: 06/26/21 21:10 Dose: Not Given Documented by: Carvedilol (Carvedilol 25 Mg Tablet) 50 mg PO BID@0900,2100 [facility] Last Admin: 06/26/21 21:39 Dose: 50 mg Documented by: Heparin Sodium (Porcine) (Heparin 5,000 Unit/Ml Inj 1 Ml) 5,000 unit SUBCUT Q12H [facility] Last Admin: 06/27/21 03:32 Dose: 5,000 unit Documented by: Hydralazine HCl (Hydralazine 10 Mg Tablet) 10 mg PO Q8H [facility] Last Admin: 06/27/21 05:31 Dose: 10 mg Documented by: Hydralazine HCl (Hydralazine 20 Mg/Ml Inj 1 Ml) 10 mg IVP Q4H PRN PRN Reason: HYPERTENSION Last Admin: 06/27/21 00:09 Dose: 10 mg Documented by: Albumin Human (Albumin) 12.5 gm in 50 mls @ 60 mls/hr IV PRN PRN PRN Reason: Hypotension and/or symptomatic Ceftriaxone Sodium 1,000 mg/ (Sodium Chloride) 50 mls @ 100 mls/hr IV Q24H [facility]; Protocol Last Infusion: 06/26/21 15:04 Dose: Infused Documented by: Isosorbide Mononitrate (Isosorbide Mononitrate Er 60 Mg Tablet) 60 mg PO QAM SC H Last Admin: 06/27/21 05:31 Dose: 60 mg Documented by: Morphine Sulfate (Morphine 4 Mg/Ml Sdv 1 Ml) 2 mg IVP Q4H PRN PRN Reason: SEVERE PAIN Last Admin: 06/27/21 05:36 Dose: 2 mg Documented by: Ondansetron HCl (Ondansetron 2 Mg/Ml Sdv 2 Ml) 4 mg IVP Q6H PRN PRN Reason: vomiting, or N/V if npo Pantoprazole Sodium (Pantoprazole Dr 40 Mg Tablet) 40 mg PO BID [facility] Last Admin: 06/26/21 18:46 Dose: 40 mg Documented by: Rifaximin (Rifaximin 550 Mg Tablet) 550 mg PO BID [facility]; Protocol Last Admin: 06/26/21 18:46 Dose: 550 mg Documented by: Sevelamer Carbonate (Sevelamer 800 Mg Tablet) 3,200 mg PO TIDWM [facility] Last Admin: 06/26/21 18:46 Dose: 3,200 mg Documented by: Sevelamer Carbonate (Sevelamer 800 Mg Tablet) 800 mg PO BID PRN PRN Reason: WITH SNACKS Trazodone HCl (Trazodone 50 Mg Tablet) 50 mg PO BEDTIME PRN PRN Reason: Sleep Last Admin: 06/26/21 21:38 Dose: 50 mg Documented by: Vitals/I&O/Wt Last Vital Signs Temp 99.3 F 06/27/21 03:54 Pulse 70 06/27/21 05:48 Resp 16 06/27/21 05:36 BP 175/89 06/27/21 03:54 Pulse Ox 98 06/27/21 03:54 06/26/21 06/27/21 06/27/21 22:59 06:59 14:59 Intake Total 530 / 530 820 / 1350 Balance 530 / 530 820 / 1350 Weight last 48 hrs Weight 76.158 kg Weight 77.2 kg Weight 77.2 kg Physical Exam Narrative: comfortable in bed. Off of oxygen vs noted- BP high lungs dull bases heart reg, +serene abd soft, nt, less distended, + bs ext dec b/l edema LUE AVF w/ thrill and bruit neuro-a,a, o x 2+ Data : 06/27/21 02:07 06/27/21 02:07 A&P Assessment and plan (1) ESRD (end stage renal disease): 40 yr old man diastolic dysfunction, hepatomegaly, ESRD. pt here w/ htn and sob 1. echo: - Normal left ventricular cavity size and systolic function.? ?Severe concentric left ventricular hypertrophy. Left ventricular ?ejection fraction is estimated at 60%.? No regional wall motion ?abnormalities. Grade II diastolic dysfunction, moderately ?elevated filling pressures. Flattened septum in systole ?consistent with right ventricle pressure overload. - Moderately dilated right ventricle with moderately decreased ?right ventricle systolic function. ?- Severe pulmonary hypertension with pulmonary artery pressure ?estimated at 82 mmHg. ?- Moderately to severely increased right atrial size. ?- Moderately increased left atrial size.? ?- At least moderate tricuspid valve regurgitation. ?-When compared to previous echocardiogram dated 09/13/2020, ?right ventricle is dilated and right ventricle systolic function ?is decreased.? Pulmonary artery pressure has markedly increased ?now. CTA -?No pulmonary embolism. - Small pericardial and very small bilateral pleural effusions. - Small amount of ascites noted in the upper abdomen. -Reactive mediastinal and hilar lymphadenopathy. - Moderate cardiomegaly, greatest involving the LEFT heart chambers -complete pulm and cardiology eval needed- here or as outpt per hospitalist 2. ESRD - did well w/ HD yesterday repeat HD today for 3 hrs, 2k, remove 2.5 l 3. anemia- monitor hgb 4. LFT's improved 5. htn- consider ARB/ ron-i. -. max fluid removal on HD 6. met alkalosis- from partial HD 7. phos binders seen and examined w/ rN -telehealth visit time spent 30 min Status: Acute Plan see above Attestations Medical Necessity Statement*: htn, hyperkalemia- monitor w/ HD. abnormal echo w/ pulm htn and CTA w/ lymphadeonapathy per medicine Time Spent in Patient Care: 16 - 35 minutes (>than 50% of time spent in counselling and/or direct pt care on unit) . Coding Level of Care Code Acute Proposition Player for Chg Fwd Diagnoses ESRD (end stage renal disease) N18.6
[2021-06-27] MEDS: ipratropium-albuterol 3 mL Neb INHALATION ×2 (08:55→21:23)
[2021-06-27] MEDS: budesonide 0.5 mg/2 mL Neb INHALATION ×2 (08:55→21:24)
--- NOTE | 2021-06-27 09:02 | PM.PN ---
Subjective Subjective: Mal reports he feels better. Less short of breath. Abdominal pain is present but improved. We had an extensive discussion regarding the need for compliance, and follow-up for control of blood pressure. Medications: Reviewed: Yes Vitals/I&O/Wt Last Vital Signs Temp 99.3 F 06/27/21 03:54 Pulse 88 06/27/21 08:59 Resp 18 06/27/21 08:59 BP 175/89 06/27/21 03:54 Pulse Ox 94 06/27/21 08:59 06/26/21 06/27/21 06/27/21 22:59 06:59 14:59 Intake Total 530 / 530 820 / 1350 Balance 530 / 530 820 / 1350 Weight last 48 hrs Weight 76.158 kg Weight 77.2 kg Weight 77.2 kg Physical Exam Narrative: General exam is a conversant male, reporting he has abdominal pain. Neck is supple no lymphadenopathy or thyromegaly Cardiovascular regular rate and rhythm, no murmur Lungs diminished breath sounds bilaterally. No crackles Abdomen soft. Positive bowel sounds. Tenderness right side. Liver edge generous. Extremities no cyanosis clubbing. 1+ edema is noted.. Slight amount of swelling right wrist where he reports he had an IV 1 week ago. AV fistula with bruit Data : 06/27/21 02:07 06/27/21 02:07 A&P Assessment and plan (1) Abdominal pain: Patient reports currently his biggest issue is abdominal discomfort. He has had previous recent ultrasounds and CT imaging which demonstrated thickened gallbladder wall, hepatosplenomegaly, small to moderate amount of ascites. He recently had an admission at an outside hospital where he received a paracentesis. These records were obtained and reviewed Ultrasound performed here, this admission did not demonstrate significant fluid to be able to perform a paracentesis. No evidence of hepatic vasculature thrombosis. Rocephin was started empirically in case SBP was present Status: Acute (2) Hypoxia: Hypoxia is most likely secondary to acute diastolic heart failure. CTA was obtained and demonstrated no thromboembolic disease He is improving with dialysis Status: Acute (3) PHT (pulmonary hypertension): He has developed significant pulmonary hypertension. Although CTA has been done in the past, the worsening of the pulmonary hypertension recently warrants another CTA. Overall this may be secondary to his severe hypertension, not well controlled secondary to noncompliance with medications as well as dialysis leading to pulmonary hypertension and reduced right heart function. At last hospital stay he was to follow-up with pulmonary regarding pulmonary hypertension but this does not seem to have happened. Repeat referral will collect her on discharge. Status: Acute (4) Acute diastolic CHF (congestive heart failure): He is improving with dialysis Appreciate nephrology consultation He is not yet down to his baseline oxygen requirement. Status: Acute (5) Hypertension: Markedly elevated on admission Dialysis should improve this substantially Home medications were restarted. Hydralazine increased. Status: Acute Plan Multiple other medical problems as outlined in past medical history Full code Heparin for DVT prophylaxis Attestations Medical Necessity Statement*: Needs continued hospitalization for treatment of fluid overload, acute diastolic heart failure with dialysis and adjustment of blood pressure medications secondary to marked hypertension. Coding Level of Care Code Acute Water Main Pipe Layer for Cristi Diane Diagnoses Abdominal pain R10.9 Hypoxia R09.02 PHT (pulmonary hypertension) I27.20 Acute diastolic CHF (congestive heart failure) I50.31 Hypertension I10
--- NOTE | 2021-06-27 09:45 | PC.CHAP ---
Pastoral Care Encounter/Spiritual Assessment Type of Contact [] Declined manager biologics visit [] Patient/Family/Request visit [] Outpatient visit [] Follow-up visit [] Physician referral [] Code/Alert [x] Routine visit [] Staff referral [] Actively dying [] Patient sleeping [] Family support [] [] Out of room [] Palliative care [] [x] Receiving care in room [] Pre-surgical visit [] Trauma [] Long length of stay [] ICU visit [] Other: Relational/Emotional Strength [] Patient feels connected with others/family/visitors/staff [] Distress [] Loneliness/isolation [] Abandonment Spirituality of Patient [] Person of Ct [] Attends Druze of their Ct [] Believes in Prayer [] Reads Bible or Taoist materials [] There are Spiritual issues to be addressed Janitor And Cleaner Interventions [] Prayer [] Active listening [] Non-anxious presence [] Spiritual/emotional support [] Crisis/trauma care [] Spiritual counseling [] Bereavement support [] Provided bereavement packet [] Provided Bible/devotional materials [] Provided toy/stuffed animal, coloring book to patient or family member [] Provided Communion [] Anointing/[place] [] Salvation [] Completed spiritual assessment [] Other: Impact on Illness or Injury [] Angry [] Fearful [] Anxious [] Often cries [] Exhaustion [] Unable to work [] Unable to attend tenriism [] Unable to walk/stand [] Unable to read [] Unable to drive [] Unable to eat/drink [] Unable to sleep [] Unable to be with family [] Patient intubated [] Other: Summary Time spent with patient
[2021-06-27] MEDS: b-complex-vitamin c Tablet 1 EACH PO (09:50)
[2021-06-27] MEDS: amlodipine 10 mg Tablet PO (09:50)
[2021-06-27] MEDS: pantoprazole DR 40 mg Tablet PO ×2 (09:50→17:51)
[2021-06-27] MEDS: sevelamer 800 mg Tablet 3200 MG PO ×2 (09:56→17:51)
[2021-06-27] MEDS: carvedilol 25 mg Tablet 50 MG PO ×2 (10:00→20:03)
[2021-06-27] MEDS: cefTRIAXone 1,000 MG in sodium chloride 0.9% (plus) 50 ML 100 MG IV (16:26)
[2021-06-27] MEDS: hyDRALAzine 25 mg Tablet PO ×2 (16:27→20:03)
[2021-06-28] VITALS (16 sets, daily range): BP systolic 159–223; BP diastolic 85–121; PULSE 70–94; RESP 18–20; TEMP 36.9–37.4; O2SAT 93–97
[2021-06-28] MEDS: hyDRALAzine 20 mg/mL INJ 1 mL 10 MG IVP ×4 (00:10→17:18)
[2021-06-28] MEDS: morphine 4 mg/mL SDV 1 mL 2 MG IVP (04:16)
[2021-06-28] MEDS: heparin 5,000 unit/mL INJ 1 mL 5000 UNIT SUBCUT ×2 (04:16→14:24)
[2021-06-28] MEDS: isosorbide mononitrate ER 60 mg Tablet PO (05:09)
--- NOTE | 2021-06-28 05:21 | P.PN_ITS ---
Subjective Subjective: Jennifer feels significantly better today with no acute issues. He has very mild lower extremity edema but it is quite mild. Otherwise breathing comfortably. Dialysis went well yesterday. No acute uremic symptoms. Keen to go home today Vitals/I&O/Wt Last Vital Signs Temp 99.4 F 06/28/21 04:00 Pulse 75 06/28/21 04:00 Resp 18 06/28/21 04:16 BP 168/92 06/28/21 05:11 Pulse Ox 96 06/28/21 04:00 06/27/21 06/27/21 06/28/21 14:59 22:59 06:59 Intake Total 1160 / 1160 1530 / 2690 280 / 2970 Balance 1160 / 1160 1530 / 2690 280 / 2970 Weight last 48 hrs Weight 76.022 kg Weight 76.158 kg Weight 77.2 kg Weight 77.2 kg Physical Exam Narrative: Constitutional: Awake, comfortable HEENT: Wet mucosa, no jvp, non icteric Lungs: Bilaterally clear without discernible wheeze or rales in all lung zones CVS: S1 S2, no murmurs Abdo: Soft, BS ok Ext 4: Minimal edema, peripheral perfusion with no cyanosis Neurological: Grossly non-focal Data : 06/27/21 02:07 06/27/21 02:07 A&P Assessment and plan (1) ESRD (end stage renal disease): Status: Acute Plan 1. End-stage renal disease We will plan for short session of dialysis today, day 3 of 3 of serial dialysis sessions. We will just make it a 2-hour treatment today, UF 2 L, he will then be okay until Thursday. Dose medication for GFR less than 15 on dialysis. 2. Chemistry Improved after dialysis, renal diet 3. Hypertension Secondary to massive fluid overload, continue home medication, ultrafiltration with dialysis helped to bring this down. 4. Chronic ESRD issues To be managed as an outpatient as part of standard monthly management. 5. Dispo TORI planning, ok from my perspective after dialysis today Caden Salazar MD Nephrology [phone] Patient seen and examined via telemedicine, with the assistance of the bedside RN > 25 min spent in evaluation and mgmt of patient Attestations Medical Necessity Statement*: esrd mgmt Coding Level of Care Code Acute Manufacturing Intern for Chg Fwd Diagnoses ESRD (end stage renal disease) N18.6
[2021-06-28 05:50] LABS: Basophils # 0.1 10^3/uL (0.0-0.1); Basophils % 1.4 %; Eosinophils # 0.4 10^3/uL (0.0-0.8); Eosinophils % 12.7 %; Hematocrit 29.4 % (42.0-52.0); Hemoglobin 9.1 g/dL (11.7-16.6); Lymphocytes # 0.8 10^3/uL (0.8-4.8); Lymphocytes % 21.7 %; Mean Corpuscular Hemoglobin 28.3 pg (28.0-34.0); Mean Corpuscular Volume 91.3 fl (80-94); Mean Platelet Volume 10.3 fL (7.4-10.4); Monocytes # 0.5 10^3/uL (0.2-0.9); Neutrophils # 1.77 10^3/uL (1.8-7.7); Neutrophils % 51.2 %; Nucleated Red Blood Cells % 0 %; Platelet Count 187 10^3/cmm (130-400); Red Blood Count 3.22 10^6/uL (4.1-5.3); Red Cell Distribution Width 21.5 % (12.1-15.1); White Blood Count 3.5 10^3/uL (4.0-10.0)
[2021-06-28 06:07] LABS: Alanine Aminotransferase 15 U/L (0-41); Albumin Level 3.3 g/dL (3.5-5.2); Alkaline Phosphatase 120 IU/L (40-130); Anion Gap 16.7 (5-19); Aspartate Amino Transferase 9 U/L (0-40); Blood Urea Nitrogen 26 mg/dL (6-20); Calcium 9.1 mg/dL (8.5-10.5); Carbon Dioxide 26 mmol/L (22-29); Chloride 96 mmol/L (98-107); Globulin 3.2 g/dL (1.3-4.6); Glucose 78 mg/dL (65-115); Osmolality Calculated 282 mOsm/kg (285-295); Phosphorus 6.1 mg/dL (2.5-4.5); Potassium 4.7 mmol/L (3.5-5.1); Sodium 134 mmol/L (136-145); Total Bilirubin 0.5 mg/dL (0.15-1.2); Total Protein 6.5 g/dL (6.6-8.7)
[2021-06-28] MEDS: budesonide 0.5 mg/2 mL Neb INHALATION (07:50)
[2021-06-28] MEDS: ipratropium-albuterol 3 mL Neb INHALATION ×2 (07:50→14:36)
[2021-06-28] MEDS: sevelamer 800 mg Tablet 3200 MG PO ×2 (08:25→17:18)
[2021-06-28] MEDS: pantoprazole DR 40 mg Tablet PO ×2 (08:25→17:18)
[2021-06-28] MEDS: carvedilol 25 mg Tablet 50 MG PO (08:25)
[2021-06-28] MEDS: amlodipine 10 mg Tablet PO (08:26)
[2021-06-28] MEDS: lisinopril 20 mg Tablet PO ×2 (08:26→18:20)
[2021-06-28] MEDS: b-complex-vitamin c Tablet 1 EACH PO (08:26)
[2021-06-28] MEDS: hyDRALAzine 25 mg Tablet PO ×2 (08:26→14:24)
--- NOTE | 2021-06-28 09:07 | P.DS_ITS ---
Discharge Providers Date of Admission: 06/26/21 11:17 Date of Discharge: June 28, 2021 Attending Provider at Admission: Db Bauman MD Attending Provider at Discharge: Db Bauman MD Primary Care Provider: Mal Junior Diagnoses at Discharge Discharge Diagnosis (1) ESRD (end stage renal disease): Status: Acute Reason for Visit Reason for Visit: SOB/ HTN Hospital Course Hospital Course Mal presented to the hospital with abdominal pain and shortness of breath. It was apparent he had had fluid overload. He did not get his full run of dialysis at the dialysis center secondary to his blood pressure being elevated according to the patient. Patient admits he does not take all of his blood pressure medicine as prescribed. He has not missed any recent dialysis. He was recently in the hospital in [place] where paracentesis was performed. On evaluation here he did not have enough ascitic fluid for paracentesis. He was placed on Rocephin empirically. Dialysis was initiated, and he received dialysis 3 days in a row with significant improvement in abdominal discomfort, shortness of breath, and peripheral edema. Blood pressure was still quite variable at times, and blood pressure medicine was adjusted. On June 28 it was thought he could be discharged home. He should follow-up closely with nephrology. Again, blood pressure medication was encouraged. Patient was adamant he would go home today even if blood pressure was elevated. I discussed the great importance of follow-up with cardiology in regards to his left sided heart failure exacerbating right heart failure with pulmonary hypertension. He was encouraged not to smoke. He was encouraged to take all his medicines as prescribed and never missed a dialysis session. He will finish 3 days of Cipro, secondary to his abdominal pain with inability to obtain peritoneal fluid. Physical Exam Narrative: General exam no distress Neck supple Cardiovascular regular rate and rhythm Lungs clear Abdomen is soft. Positive bowel sounds. Extremities no cyanosis clubbing or edema Discharge Data Studies Completed and Pending Completed Studies During Hospitalization Category Date Time Status CT angio chest PE protcl [id number] Stat Cat Scan 06/26/21 11:16 Completed XR chest 1V portable [id number] Stat Exams 06/26/21 09:23 Completed US abdomen limited [id number] Routine Ultrasound 06/26/21 Completed Pending at discharge Category Date Time Status Complete Blood Count w/Auto AM LABS Lab 06/29/21 04:00 Ordered Comprehensive Metabolic Panel AM LABS Lab 06/29/21 04:00 Ordered Magnesium AM LABS Lab 06/29/21 04:00 Ordered Phosphorus AM LABS Lab 06/29/21 04:00 Ordered Urinalysis Stat Lab 06/26/21 09:23 Uncollected Radiology Impressions Abdomen Ultrasound 06/26/21 00:00 IMPRESSION: 1. Small amount of ascites throughout the peritoneal cavity. Insufficient to perform paracentesis safely. 2. Hepatomegaly. 3. Severe atrophy RIGHT kidney. Chest X-Ray 06/26/21 09:23 IMPRESSION: 1. Cardiac enlargement with increased pulmonary vascularity. The pattern is unchanged. 2. No acute infiltrate or other significant finding. Chest CTA 06/26/21 11:16 IMPRESSION: 1. No pulmonary embolism. 2. Small pericardial and very small bilateral pleural effusions. 3. Small amount of ascites noted in the upper abdomen. 4. Reactive mediastinal and hilar lymphadenopathy. 5. Moderate cardiomegaly, greatest involving the LEFT heart chambers. Laboratory Results WBC 3.5 10^3/uL (4.0-10.0) L 06/28/21 04:56 RBC 3.22 10^6/uL (4.1-5.3) L 06/28/21 04:56 Hgb 9.1 g/dL (11.7-16.6) L 06/28/21 04:56 Hct 29.4 % (42.0-52.0) L 06/28/21 04:56 MCV 91.3 fl (80-94) 06/28/21 04:56 MCH 28.3 pg (28.0-34.0) 06/28/21 04:56 MCHC 31.0 g/dL (30.0-36.0) 06/28/21 04:56 RDW 21.5 % (12.1-15.1) H 06/28/21 04:56 Plt Count 187 10^3/cmm (130-400) 06/28/21 04:56 MPV 10.3 fL (7.4-10.4) 06/28/21 04:56 Neut % (Auto) 51.2 % 06/28/21 04:56 Lymph % (Auto) 21.7 % 06/28/21 04:56 [place] % (Auto) 13.0 % 06/28/21 04:56 Eos % (Auto) 12.7 % 06/28/21 04:56 Baso % (Auto) 1.4 % 06/28/21 04:56 Neut # (Auto) 1.77 10^3/uL (1.8-7.7) L 06/28/21 04:56 Lymph # (Auto) 0.8 10^3/uL (0.8-4.8) 06/28/21 04:56 [place] # (Auto) 0.5 10^3/uL (0.2-0.9) 06/28/21 04:56 Eos # (Auto) 0.4 10^3/uL (0.0-0.8) 06/28/21 04:56 Baso # (Auto) 0.1 10^3/uL (0.0-0.1) 06/28/21 04:56 Nucleated RBC % (auto) 0 % 06/28/21 04:56 Nucleated RBCs # 0.0 /100WBC 06/28/21 04:56 PT 16.00 SECONDS (12.1-14.9) H 06/26/21 09:30 INR 1.24 (0.8-1.2) H 06/26/21 09:30 Specimen Type Arterial 06/26/21 09:21 Sample Site Radial, right 06/26/21 09:21 ABG pH 7.47 (7.35-7.45) H 06/26/21 09:21 ABG pCO2 42.0 mmHg (35-45) 06/26/21 09:21 ABG pO2 62.9 mmHg (80.0-100.0) L 06/26/21 09:21 ABG HCO3 30.3 mmol/L (22-26) H 06/26/21 09:21 ABG O2 Saturation 94.3 06/26/21 09:21 ABG Base Excess 6.0 mmol/L (-2.0-2.0) H 06/26/21 09:21 Alexei Test Pos 06/26/21 09:21 A-a O2 Gradient 15.2 mmHg (5-10) H 06/26/21 09:21 Hematocrit 30.0 % (42-52) L 06/26/21 09:21 Hgb O2 Saturation 91.0 % (95-100) L 06/26/21 09:21 Carboxyhemoglobin 2.8 %THgb (0.4-20.1) 06/26/21 09:21 Methemoglobin 0.6 % (0.4-1.5) 06/26/21 09:21 Total Hemoglobin 9.8 g/dL (14-18) L 06/26/21 09:21 Sodium 135.0 mmol/L (131-143) 06/26/21 09:21 Potassium 4.4 mmol/L (3.5-5.0) 06/26/21 09:21 Glucose 76.0 mg/dL (70-115) 06/26/21 09:21 Ionized Calcium 1.2 mmol/L (1.1-1.4) 06/26/21 09:21 O2 Delivery Device Nc 06/26/21 09:21 O2 Liters/Min 3.0 % 06/26/21 09:21 FiO2 32.0 % 06/26/21 09:21 Hydraulic Rubbish Compactor Mechanic ID glc 06/26/21 09:21 Sodium 134 mmol/L (136-145) L 06/28/21 04:56 Potassium 4.7 mmol/L (3.5-5.1) 06/28/21 04:56 Chloride 96 mmol/L (98-107) L 06/28/21 04:56 Carbon Dioxide 26 mmol/L (22-29) 06/28/21 04:56 Anion Gap 16.7 (5-19) 06/28/21 04:56 BUN 26 mg/dL (6-20) H 06/28/21 04:56 Creatinine 5.8 mg/dL (0.7-1.2) H* 06/28/21 04:56 GFR Calculation 11.0 mL/min (90-130) L 06/28/21 04:56 Glucose 78 mg/dL (65-115) 06/28/21 04:56 Calculated Osmolality 282 mOsm/kg (285-295) L 06/28/21 04:56 Lactic Acid 0.8 mmol/L (0.5-2.2) 06/26/21 09:30 Calcium 9.1 mg/dL (8.5-10.5) 06/28/21 04:56 Phosphorus 6.1 mg/dL (2.5-4.5) H 06/28/21 04:56 Magnesium 2.0 mg/dL (1.7-2.3) 06/28/21 04:56 Total Bilirubin 0.5 mg/dL (0.15-1.2) 06/28/21 04:56 AST 9 U/L (0-40) 06/28/21 04:56 ALT 15 U/L (0-41) 06/28/21 04:56 Alkaline Phosphatase 120 IU/L (40-130) 06/28/21 04:56 Creatine Kinase 33 U/L (39-308) L 06/26/21 09:30 Troponin T Baseline 92 ng/L (0-15) H 06/26/21 09:30 Troponin T 120 Minute 83.01 ng/L (0-15) H 06/26/21 11:18 Delta Troponin T -8.99 ABS# (0-10) L 06/26/21 11:18 Troponin T Hi Sens 6Hr 75.55 ng/L (0-15) H 06/26/21 15:13 Troponin T Hi Sens 6Hr Delta -16.45 ng/L (0-12) L 06/26/21 15:13 Total Protein 6.5 g/dL (6.6-8.7) L 06/28/21 04:56 Albumin 3.3 g/dL (3.5-5.2) L 06/28/21 04:56 Globulin 3.2 g/dL (1.3-4.6) 06/28/21 04:56 Hep Bs Antigen Non-reactive (Nonreactive) 06/26/21 12:20 Hep Bs Antibody > 1000.0 (11.5-1000) H 06/26/21 12:20 Hepatitis C Antibody Non-reactive (Nonreactive) 06/26/21 12:20 Vitals Last Vital Signs Temp 98.5 F 06/28/21 08:00 Pulse 80 06/28/21 08:00 Resp 18 06/28/21 08:00 BP 207/121 06/28/21 08:00 Pulse Ox 96 06/28/21 08:00 Discharge Plan Discharge Patient Disposition: Home Condition: Stable Prescriptions: New hydralazine 25 mg Tablet 25 mg PO TID Qty: 90 0RF ciprofloxacin HCl [Cipro] 500 mg tablet 500 mg PO DAILY Qty: 3 0RF Rx Instructions: if taking on dialysis day take after dialysis Continued Incruse Ellipta 62.5 mcg/actuation blister with device 1 inh INHALATION DAILY 0RF pantoprazole 40 mg tablet,delayed release (DR/EC) 40 mg PO BID 0RF sevelamer carbonate [Renvela] 800 mg tablet See Rx Instructions .ROUTE .COMPLEX 0RF Rx Instructions: 4 TABS PO TID AND ONE TAB BID WITH SNACKS trazodone 50 mg tablet 50 mg PO BEDTIME PRN (Reason: Sleep) 0RF fluticasone propionate 50 mcg/actuation spray,suspension 2 spray INTRANASAL DAILY PRN (Reason: Allergy Symptoms) 0RF albuterol sulfate [ProAir HFA] 90 mcg/actuation Hfa Aerosol Inhaler 2 puff INHALATION QID PRN (Reason: Shortness Of Breath) Qty: 2 4RF carvedilol 25 mg tablet 50 mg PO BID 0RF isosorbide mononitrate 60 mg tablet extended release 24 hr 60 mg PO QAM 0RF amlodipine 10 mg tablet 10 mg PO DAILY 0RF Xifaxan 550 mg tablet 550 mg PO BID 0RF clonidine 0.3 mg/24 hr Patch Weekly 0.3 mg transdermal Q7D 0RF lisinopril 20 mg tablet 20 mg PO DAILY 0RF minoxidil 2.5 mg tablet 2.5 mg PO BID 0RF Discontinued hydralazine 10 mg tablet 10 mg PO Q8H 0RF Discharge Orders: Discharge Order (Routine); Ordered 06/28/21 Ordered By: Db Bauman Referrals: Mal Junior [Primary Care Provider] - 4-7 days Trinity Bridges FNP [Nurse Practitioner] - 1 week Discharge Activity: Increase activity as tolerated Patient Instructions: Opioid Safety Activity Restrictions/Additional Instructions: Renal dialysis diet Please follow-up with mobile paramedical examiner as soon as possible for further adjustment of antihypertensives Referral to cardiology secondary to left causing right heart failure and severe pulmonary hypertension Follow-up with your primary care provider Discharge Attestations Time Spent in Discharge Care*: greater than 30 min Status at Discharge: Cognitive status at discharge: cognitively intact , Behavioral status at discharge: cooperative , Quality Metrics Clinical Quality Measures [ No reported AMI, CVA or VTE this stay] Coding Level of Care Code Acute Chg FW DC note Diagnoses ESRD (end stage renal disease) N18.6
[2021-06-28] MEDS: minoxidil 10 mg Tablet 2.5 MG PO (12:07)
[2021-06-28] MEDS: cloNIDine 0.3 mg/24 hr Patch 1 PATCH TRANSDERMA (12:07)
[2021-06-28] MEDS: acetaminophen 325 mg Tablet 650 MG PO (12:54)
[2021-06-28] MEDS: cefTRIAXone 1,000 MG in sodium chloride 0.9% (plus) 50 ML 100 MG IV (14:24)
--- NOTE | 2021-06-28 17:39 | PC.NURSE ---
Notified Dr. Bauman of Patient's blood pressure being 220/120. Patient has had Dialysis today, and has discharge orders. Patient verbalized that he was leaving at 1830 regardless. RBVO of Lisinopril 20mg PO now. Physician aware of patients request to leave.
== END 2021-06-28 19:27 | disposition home or self-care (01) | DRG 291 ==
LOC: ER 09:32 → MEDSURG 11:56
PROVIDERS: Internal Medicine Nephrology; Admitting Provider Internal Medicine; Emergency Provider Family Medicine; PCP Family Medicine; Visit Provider Internal Medicine
DX: I13.2 Hypertensive heart and chronic kidney disease with heart failure and with stage 5 chronic kidney disease, or end stage renal disease (principal); I50.31 Acute diastolic (congestive) heart failure; N18.6 End stage renal disease; R18.8 Other ascites; Z99.2 Dependence on renal dialysis; Z99.81 Dependence on supplemental oxygen; D63.1 Anemia in chronic kidney disease; F41.8 Other specified anxiety disorders; F17.210 Nicotine dependence, cigarettes, uncomplicated; M51.36 Other intervertebral disc degeneration, lumbar region; I27.20 Pulmonary hypertension, unspecified; R16.0 Hepatomegaly, not elsewhere classified; Z91.14 Patient's other noncompliance with medication regimen
CPT/HCPCS: 36415; 36600; 71045; 71275; 76705; 80051; 80053; 82330; 82550; 82805; 83605; 83735; 84100; 84484; 85025; 85610; 86706; 86803; 87340; 93005; 94640; 96365; 96372; 96375; 96376; 99285; J0360; J0696; J1644; J2270; J3490; J7626; Q9967

== ENCOUNTER 2021-07-02 11:22 | Emergency (ER) | payer MEDICARE, MEDICAID, SELFPAY ==
[2021-07-02 11:27] VITALS: BP 202/117; PULSE 74; RESP 18; TEMP 36.8; O2SAT 93; BMI 21.5
[2021-07-02 11:32] VITALS: BP 183/150; PULSE 73; RESP 20; O2SAT 96
--- NOTE | 2021-07-02 12:08 | ECG_ITS ---
[facility] Test Date: 2021-07-02 Pat Name: Mal Gibbs Department: Room: Gender: Male Complaint Evaluation Officer: : 1980 Requested By: Pato Spencer Order Number: [id number] Mohini MD: Rosalia Dia M.D. Measurements Intervals [place] Rate: 72 P: 30 [place]: 222 QRS: 87 QRSD: 120 T: 19 QT: 421 QTc: 461 Interpretive Statements SINUS RHYTHM WITH FIRST DEGREE AV BLOCK POSSIBLE LEFT ATRIAL ENLARGEMENT [-0.1mV P-WAVE IN V1/V2] MODERATE INTRAVENTRICULAR CONDUCTION DELAY [110+ ms QRS DURATION] NONSPECIFIC ST & T-WAVE ABNORMALITY Compared to ECG 06/26/2021 11:24:13 Intraventricular conduction delay now present Prolonged QT interval no longer present T-wave abnormality still present Electronically Signed On 07-03-2021 5:38:34 LAND MEASURER by Rosalia Dia M.D. [id number]
[2021-07-02 12:18] LABS: Basophils # 0.1 10^3/uL (0.0-0.1); Basophils % 0.9 %; Eosinophils # 0.6 10^3/uL (0.0-0.8); Eosinophils % 10.8 %; Hemoglobin 8.9 g/dL (11.7-16.6); Lymphocytes # 0.8 10^3/uL (0.8-4.8); Lymphocytes % 14.9 %; Mean Corpuscular HGB Conc 30.7 g/dL (30.0-36.0); Mean Corpuscular Volume 91.2 fl (80-94); Mean Platelet Volume 10.3 fL (7.4-10.4); Monocytes # 0.4 10^3/uL (0.2-0.9); Monocytes % 7.8 %; Neutrophils # 3.68 10^3/uL (1.8-7.7); Neutrophils % 65.4 %; Nucleated Red Blood Cells % 0 %; Platelet Count 222 10^3/cmm (130-400); Red Blood Count 3.18 10^6/uL (4.1-5.3); Red Cell Distribution Width 21.7 % (12.1-15.1); White Blood Count 5.6 10^3/uL (4.0-10.0)
--- NOTE | 2021-07-02 12:40 | US_ITS ---
WS: [id number] Abdominal ultrasound, limited. History: Evaluate for ascites. Comparison: None. All 4 quadrants are imaged by ultrasound to evaluate for ascites. There is a small amount of ascites in all 4 quadrants. At this time paracentesis will not be performed. US/US abdomen limited [id number] IMPRESSION: Small amount of ascites. No paracentesis to be performed.
--- NOTE | 2021-07-02 12:41 | W.ED.ABDPA2 ---
HPI - Abdominal Pain General: Chief Complaint: Abdominal Pain Stated Complaint: abd pain , SOB Time Seen by Provider: 07/02/21 11:35 Source: patient Mode of arrival: ambulatory History of Present Illness: 40-year-old male with end-stage renal disease and liver cirrhosis presents with complaint of abdominal pain this is a chronic recurring issue he previously was seen at the pain clinic is no longer receiving there frequently shows up now hypertensive and tachycardic and it is been resistant generally to antihypertensives but responsive to narcotics. We have admitted him a couple of times for hypertensive crisis and found that by treating with narcotics his blood pressure improves and his symptoms are resolved. I talked to Dr. Hill about him previously after admission we are concerned that some of his symptoms were withdrawal. He is not had any fever sweats chills dysuria urgency or frequency. Severe abdominal discomfort no vomiting. MD elicited complaint: abdominal pain Pertinent past history: other (End-stage renal disease, liver cirrhosis, ascites) Onset (ago): minute(s) Pain Consistency: constant Location: Diffuse Severity: severe Quality: cramping Radiation: none Exacerbating factors: nothing Relieving factors: nothing Associated Symptoms: Reports anorexia, bloating, GI cramping and poor appetite; Denies belching, change in bowel habits, change in stool character, chills, coffee ground emesis, constipation, diarrhea, dyspepsia, dysuria, excessive flatus, fever(s), heartburn, hematochezia, hematuria, hematemesis, fecal incontinence, loose stools, melena, nausea, syncope and vomiting Review of Systems Const: Denies: fever(s) or chills ENMT: Denies: throat pain, ear or mastoid pain, nasal discharge or nasal congestion Card: Denies: syncope Resp: Denies: dyspnea, productive cough or non-productive cough GI: Reports: bloating and GI cramping; Denies: nausea, vomiting, hematemesis, coffee ground emesis, heartburn, diarrhea, constipation, belching, excessive flatus, fecal incontinence, change in bowel habits, change in stool character, hematochezia or melena : Denies: dysuria or hematuria Skin/Breast: Denies: rash or pruritus PFSH ED PFSH: Medical History Abdominal ascites Acute diastolic CHF (congestive heart failure) Anasarca Anemia Anemia Anxiety with depression Arteriovenous fistula for hemodialysis in place, secondary Congestive heart failure COPD (chronic obstructive pulmonary disease) Current smoker Degenerative disc disease, lumbar End-stage renal disease on hemodialysis ESRD (end stage renal disease) Gross hematuria Hematuria Hemoptysis Hepatomegaly Hyperkalemia Hypertension Hypertensive emergency PHT (pulmonary hypertension) Surgical History H/O hand surgery Amputation right 2&3 fingers 2017 History of adenoidectomy Family History Father No problems noted. Other Hypertension Social History Smoking and tobacco status: current every day smoker Alcohol intake: never Marital status: Number of children: 3 Current occupational status: disabled History of recent travel: No Physical Exam Const: GENERAL APPEARANCE: cooperative ORIENTATION/CONSCIOUSNESS: Yes awake, Yes oriented to person, Yes oriented to place and Yes oriented to time HENMT: COMMON NORMALS: normocephalic and atraumatic HEAD & SCALP: normocephalic and atraumatic Neck/C-Spine: COMMON NORMALS: no JVD Resp: COMMON NORMALS: normal respiratory effort, No retractions, No use of accessory muscles and clear to auscultation bilaterally AUSCULTATION: clear to auscultation bilaterally Cardio: COMMON NORMALS: no JVD, regular rate, regular rhythm and No murmurs present (Cardio) RATE: regular rate RHYTHM: regular rhythm GI: COMMON NORMALS: No hepatosplenomegaly present AUSCULTATION: Yes normoactive bowel sounds PALPATION: Yes Tenderness to palpation present (GI) (Diffuse), No Guarding due to palpation present (GI) and Yes No hepatosplenomegaly present Extremity: COMMON NORMALS: normal to inspection, capillary refill normal, no clubbing, cyanosis or edema, no calf tenderness and no pedal edema Neuro: SENSORIUM/ORIENTATION: Yes oriented to person, Yes oriented to place and Yes oriented to time OTHER: No focal neurologic deficits noted Skin: COMMON NORMALS: no rashes or lesions noted GENERAL SKIN EXAM: no rashes or lesions noted Course Vital Signs: Vital signs: Vital Signs Temperature 98.2 F 07/02/21 11:27 Pulse Rate 78 07/02/21 15:27 Respiratory Rate 16 07/02/21 15:27 Blood Pressure 187/126 07/02/21 15:27 Pulse Oximetry 92 07/02/21 15:27 MDM - Abdominal Pain Medical Decision Making Symptoms improved patient is sleeping comfortably. Discussed with MRI feel he needs to be back to the pain clinic this is chronic abdominal pain. Refer him back to his PCP for referral to pain clinic. Patient is in agreement with plan he was at dialysis morning and nearly finished his full course of the dialysis. His potassium is normal and his creatinine is at what is generally been his baseline. His anemia is also chronic. Medical Records I reviewed the patient's medical records. Lab Data I reviewed the patient's lab results. : 07/02/21 11:55 07/02/21 11:55 Labs/Radiology: Radiology Impressions Abdomen Ultrasound 07/02/21 12:40 IMPRESSION: Small amount of ascites. No paracentesis to be performed. Laboratory Results WBC 5.6 10^3/uL (4.0-10.0) 07/02/21 11:55 RBC 3.18 10^6/uL (4.1-5.3) L 07/02/21 11:55 Hgb 8.9 g/dL (11.7-16.6) L 07/02/21 11:55 Hct 29.0 % (42.0-52.0) L 07/02/21 11:55 MCV 91.2 fl (80-94) 07/02/21 11:55 MCH 28.0 pg (28.0-34.0) 07/02/21 11:55 MCHC 30.7 g/dL (30.0-36.0) 07/02/21 11:55 RDW 21.7 % (12.1-15.1) H 07/02/21 11:55 Plt Count 222 10^3/cmm (130-400) 07/02/21 11:55 MPV 10.3 fL (7.4-10.4) 07/02/21 11:55 Neut % (Auto) 65.4 % 07/02/21 11:55 Lymph % (Auto) 14.9 % 07/02/21 11:55 [place] % (Auto) 7.8 % 07/02/21 11:55 Eos % (Auto) 10.8 % 07/02/21 11:55 Baso % (Auto) 0.9 % 07/02/21 11:55 Neut # (Auto) 3.68 10^3/uL (1.8-7.7) 07/02/21 11:55 Lymph # (Auto) 0.8 10^3/uL (0.8-4.8) 07/02/21 11:55 [place] # (Auto) 0.4 10^3/uL (0.2-0.9) 07/02/21 11:55 Eos # (Auto) 0.6 10^3/uL (0.0-0.8) 07/02/21 11:55 Baso # (Auto) 0.1 10^3/uL (0.0-0.1) 07/02/21 11:55 Nucleated RBC % (auto) 0 % 07/02/21 11:55 Nucleated RBCs # 0.0 /100WBC 07/02/21 11:55 Specimen Type Arterial 07/02/21 13:06 Sample Site Radial, right 07/02/21 13:06 ABG pH 7.48 (7.35-7.45) H 07/02/21 13:06 ABG pCO2 37.3 mmHg (35-45) 07/02/21 13:06 ABG pO2 94.3 mmHg (80.0-100.0) 07/02/21 13:06 ABG HCO3 27.6 mmol/L (22-26) H 07/02/21 13:06 ABG O2 Saturation 98.8 07/02/21 13:06 ABG Base Excess 3.9 mmol/L (-2.0-2.0) H 07/02/21 13:06 Alexei Test Pos 07/02/21 13:06 A-a O2 Gradient 1.1 mmHg (5-10) L 07/02/21 13:06 Hematocrit 32.8 % (42-52) L 07/02/21 13:06 Hgb O2 Saturation 94.6 % (95-100) L 07/02/21 13:06 Carboxyhemoglobin 3.6 %THgb (0.4-20.1) 07/02/21 13:06 Methemoglobin 0.7 % (0.4-1.5) 07/02/21 13:06 Total Hemoglobin 10.7 g/dL (14-18) L 07/02/21 13:06 Sodium 134.0 mmol/L (131-143) 07/02/21 13:06 Potassium 4.8 mmol/L (3.5-5.0) 07/02/21 13:06 Glucose 82.0 mg/dL (70-115) 07/02/21 13:06 Ionized Calcium 1.2 mmol/L (1.1-1.4) 07/02/21 13:06 O2 Delivery Device Room air 07/02/21 13:06 FiO2 21.0 % 07/02/21 13:06 Fishing Lure Assembler ID glc 07/02/21 13:06 Sodium 131 mmol/L (136-145) L 07/02/21 11:55 Potassium 4.9 mmol/L (3.5-5.1) 07/02/21 11:55 Chloride 93 mmol/L (98-107) L 07/02/21 11:55 Carbon Dioxide 27 mmol/L (22-29) 07/02/21 11:55 Anion Gap 15.9 (5-19) 07/02/21 11:55 BUN 31 mg/dL (6-20) H 07/02/21 11:55 Creatinine 6.5 mg/dL (0.7-1.2) H* 07/02/21 11:55 GFR Calculation 9.6 mL/min (90-130) L 07/02/21 11:55 Glucose 94 mg/dL (65-115) 07/02/21 11:55 Calculated Osmolality 278 mOsm/kg (285-295) L 07/02/21 11:55 Lactic Acid 1.1 mmol/L (0.5-2.2) 07/02/21 11:55 Calcium 8.7 mg/dL (8.5-10.5) 07/02/21 11:55 Total Bilirubin 0.6 mg/dL (0.15-1.2) 07/02/21 11:55 AST 10 U/L (0-40) 07/02/21 11:55 ALT 9 U/L (0-41) 07/02/21 11:55 Alkaline Phosphatase 124 IU/L (40-130) 07/02/21 11:55 Creatine Kinase 27 U/L (39-308) L 07/02/21 11:55 Total Protein 6.8 g/dL (6.6-8.7) 07/02/21 11:55 Albumin 3.6 g/dL (3.5-5.2) 07/02/21 11:55 Globulin 3.2 g/dL (1.3-4.6) 07/02/21 11:55 Lipase 18 U/L (13-60) 07/02/21 11:55 Serum Ketones Negative (Negative) 07/02/21 11:55 Discharge Plan Discharge Patient Disposition: Home Clinical Impression: Chronic abdominal pain, ESRD (end stage renal disease), Hypertension, COPD (chronic obstructive pulmonary disease) Condition: Stable Prescriptions: No Action Incruse Ellipta 62.5 mcg/actuation blister with device 1 inh INHALATION DAILY 0RF pantoprazole 40 mg tablet,delayed release (DR/EC) 40 mg PO BID 0RF sevelamer carbonate [Renvela] 800 mg tablet See Rx Instructions .ROUTE .COMPLEX 0RF Rx Instructions: 4 TABS PO TID AND ONE TAB BID WITH SNACKS trazodone 50 mg tablet 50 mg PO BEDTIME PRN (Reason: Sleep) 0RF fluticasone propionate 50 mcg/actuation spray,suspension 2 spray INTRANASAL DAILY PRN (Reason: Allergy Symptoms) 0RF albuterol sulfate [ProAir HFA] 90 mcg/actuation Hfa Aerosol Inhaler 2 puff INHALATION QID PRN (Reason: Shortness Of Breath) Qty: 2 4RF carvedilol 25 mg tablet 50 mg PO BID 0RF isosorbide mononitrate 60 mg tablet extended release 24 hr 60 mg PO QAM 0RF amlodipine 10 mg tablet 10 mg PO DAILY 0RF Xifaxan 550 mg tablet 550 mg PO BID 0RF clonidine 0.3 mg/24 hr Patch Weekly 0.3 mg transdermal Q7D 0RF lisinopril 20 mg tablet 20 mg PO DAILY 0RF minoxidil 2.5 mg tablet 2.5 mg PO BID 0RF hydralazine 25 mg Tablet 25 mg PO TID Qty: 90 0RF ciprofloxacin HCl [Cipro] 500 mg tablet 500 mg PO DAILY Qty: 3 0RF Rx Instructions: if taking on dialysis day take after dialysis Discharge Orders: Discharge ED (Routine); Ordered 07/02/21 Ordered By: Pato Rivera Referrals: Mal Junior [Primary Care Provider] - Activity Restrictions/Additional Instructions: Follow-up with your primary care doctor recommend a referral to pain clinic for your chronic recurrent abdominal pain Coding Level of Care Code ED Molecular Biology Scientist for Chg Fwd Exam Comprehensive
[2021-07-02 12:43] LABS: Lactic Sepsis W/Reflex 1.1 mmol/L (0.5-2.2)
[2021-07-02 12:44] LABS: Alanine Aminotransferase 9 U/L (0-41); Albumin Level 3.6 g/dL (3.5-5.2); Alkaline Phosphatase 124 IU/L (40-130); Anion Gap 15.9 (5-19); Aspartate Amino Transferase 10 U/L (0-40); Blood Urea Nitrogen 31 mg/dL (6-20); Calcium 8.7 mg/dL (8.5-10.5); Carbon Dioxide 27 mmol/L (22-29); Chloride 93 mmol/L (98-107); Creatine Phosphokinase 27 U/L (39-308); Globulin 3.2 g/dL (1.3-4.6); Glomerular Filtration Rate 9.6 mL/min (90-130); Glucose 94 mg/dL (65-115); Lipase 18 U/L (13-60); Osmolality Calculated 278 mOsm/kg (285-295); Potassium 4.9 mmol/L (3.5-5.1); Sodium 131 mmol/L (136-145); Total Bilirubin 0.6 mg/dL (0.15-1.2); Total Protein 6.8 g/dL (6.6-8.7)
[2021-07-02 12:53] LABS: Ketone (Acetest) Serum Negative (Negative)
[2021-07-02 13:18] LABS: ABG PCO2 37.3 mmHg (35-45); ABG PH Result 7.48 (7.35-7.45); Alveolar-Arterial Oxygen Gradi 1.1 mmHg (5-10); Arterial Blood Gas Hematocrit 32.8 % (42-52); Base Excess ABG 3.9 mmol/L (-2.0-2.0); Blood Gas Allen Test Pos; Blood Gas Operator Identificat glc; Blood Gas Sample Site Radial, right; Blood Gas Sample Type Arterial; Carboxyhemoglobin 3.6 %THgb (0.4-20.1); HCO3 ABG 27.6 mmol/L (22-26); HGB O2 Sat 94.6 % (95-100); Ionized Calcium Level - ABG 1.2 mmol/L (1.1-1.4); Methemoglobin 0.7 % (0.4-1.5); Oxygen Device ROOM AIR; Oxygen Saturation ABG 98.8; PO2 ABG 94.3 mmHg (80.0-100.0); Potassium Level - ABG 4.8 mmol/L (3.5-5.0); Total Hemoglobin 10.7 g/dL (14-18)
[2021-07-02 13:41] VITALS: BP 133/82; PULSE 60; RESP 25; O2SAT 98
[2021-07-02 14:00] VITALS: RESP 17
[2021-07-02] MEDS: morphine 4 mg/mL SDV 1 mL IVP ×3 (14:00→15:14)
[2021-07-02] MEDS: promethazine 25 mg/mL SDV 1 mL IM (14:29)
[2021-07-02 14:30] VITALS: RESP 24
[2021-07-02 15:27] VITALS: BP 187/126; PULSE 78; RESP 16; O2SAT 92
== END 2021-07-02 15:25 | disposition home or self-care (01) ==
PROVIDERS: Emergency Provider Family Medicine; PCP Family Medicine
DX: G89.29 Other chronic pain (principal); R10.9 Unspecified abdominal pain; J44.9 Chronic obstructive pulmonary disease, unspecified; I13.2 Hypertensive heart and chronic kidney disease with heart failure and with stage 5 chronic kidney disease, or end stage renal disease; N18.6 End stage renal disease; I50.31 Acute diastolic (congestive) heart failure; F17.210 Nicotine dependence, cigarettes, uncomplicated
CPT/HCPCS: 36600; 76705; 80051; 80053; 82009; 82330; 82550; 82805; 83605; 83690; 85025; 87040; 93005; 96372; 96374; 96376; 99284; J2270; J2550

== ENCOUNTER 2021-07-07 04:40 | Inpatient (IN) | payer MEDICARE, MEDICAID, SELFPAY ==
[2021-07-07] VITALS (82 sets, daily range): BP systolic 119–209; BP diastolic 76–155; PULSE 22–97; RESP 11–70; TEMP 36.3–37.1; O2SAT 85–100; BMI 21.6
--- NOTE | 2021-07-07 05:20 | XRR_ITS ---
PROCEDURE INFORMATION: Exam: XR Chest Exam date and time: 07/07/2021 5:20 AM Age: 40 years old Clinical indication: Dyspnea; Additional info: SOB TECHNIQUE: Imaging protocol: XR of the chest. Views: 1 view. COMPARISON: CR XR chest 1V portable [id number] 06/26/2021 9:29 AM FINDINGS: Lungs: Unremarkable. No consolidation. Pleural spaces: Unremarkable. No pleural effusion. No pneumothorax. Heart/Mediastinum: Increased [id number] globular cardiomegaly consistent with 4-chamber enlargment and/or pericardial effusion. Bones/joints: Idiopathic S-shaped scoliosis. XR/XR chest 1V portable [id number] IMPRESSION: Increased [id number] globular cardiomegaly consistent with 4-chamber enlargment and/or pericardial effusion.
--- NOTE | 2021-07-07 05:22 | ECG_ITS ---
[facility] Test Date: 2021-07-07 Pat Name: Mal Gibbs Department: Room: Gender: Male [employer] Dean: : 1980 Requested By: Jose Negrete Order Number: [id number] Rajan MD: Rosalia Dia M.D. Measurements Intervals [place] Rate: 95 P: 53 [place]: 239 QRS: 4 QRSD: 147 T: 72 QT: 388 QTc: 490 Interpretive Statements SINUS RHYTHM WITH FIRST DEGREE AV BLOCK POSSIBLE LEFT ATRIAL ENLARGEMENT [-0.1mV P-WAVE IN V1/V2] INTRAVENTRICULAR CONDUCTION DELAY [130+ ms QRS DURATION] Compared to ECG 07/02/2021 11:35:26 T-wave abnormality no longer present Electronically Signed On 07-07-2021 12:02:48 RAMP LEAD by Rosalia Dia M.D. [id number] [email or web address]
[2021-07-07 05:34] LABS: Basophils % 0.4 %; Hematocrit 35.3 % (42.0-52.0); Hemoglobin 11.3 g/dL (11.7-16.6); Lymphocytes # 0.6 10^3/uL (0.8-4.8); Lymphocytes % 5.6 %; Mean Corpuscular Hemoglobin 28.9 pg (28.0-34.0); Mean Corpuscular Volume 90.3 fl (80-94); Mean Platelet Volume 11.2 fL (7.4-10.4); Monocytes # 0.6 10^3/uL (0.2-0.9); Monocytes % 5.3 %; Neutrophils # 9.54 10^3/uL (1.8-7.7); Neutrophils % 88.1 %; Nucleated Red Blood Cells # 0.1 /100WBC; Nucleated Red Blood Cells % 0.5 %; Platelet Count 193 10^3/cmm (130-400); Red Blood Count 3.91 10^6/uL (4.1-5.3); Red Cell Distribution Width 21.8 % (12.1-15.1); White Blood Count 10.8 10^3/uL (4.0-10.0)
[2021-07-07] MEDS: amlodipine 10 mg Tablet PO (05:46)
[2021-07-07] MEDS: nitroglycerin 1 gm/inch oint Pkt 2 INCH TOPICAL (05:47)
[2021-07-07] MEDS: labetalol 5 mg/mL SDV 20mL 20 MG IVP ×2 (05:52→06:50)
[2021-07-07 06:04] LABS: Lactate (Lactic Acid level) 4.6 mmol/L (0.5-2.2)
--- NOTE | 2021-07-07 06:14 | CTR_ITS ---
PROCEDURE INFORMATION: Exam: CT Abdomen And Pelvis With Contrast Exam date and time: 07/07/2021 6:14 AM Age: 40 years old Clinical indication: Abdominal pain; Additional info: Abd pain TECHNIQUE: Imaging protocol: Computed tomography of the abdomen and pelvis with contrast. Radiation optimization: All CT scans at this facility use at least one of these dose optimization techniques: automated exposure control; mA and/or kV adjustment per patient size (includes targeted exams where dose is matched to clinical indication); or iterative reconstruction. Contrast material: VISI 320; Contrast volume: 75 ml; Contrast route: INTRAVENOUS (IV); COMPARISON: CT abdomen pelvis w con* [id number] 06/16/2021 3:20 PM RADIATION DOSE METRICS: Total DLP (mGy-cm): 1514.48 FINDINGS: Lungs: Linear scarring or atelectasis left lower lung. Ground-glass interstitial process in the right lower lobe. Right lower lobe calcified granuloma. Pleural spaces: Small right pleural effusion. Heart: Cardiac enlargement. Calcification distribution of coronary arteries. Liver: Hepatomegaly longitudinally measures 23.4 cm. Diffuse heterogeneity of liver parenchyma. Gallbladder and bile ducts: Differential density in the gallbladder suggestive of sludge. Pancreas: Normal. No ductal dilation. Spleen: Normal. No splenomegaly. Adrenal glands: Normal. No mass. Kidneys and ureters: Severely diminutive kidneys size bilaterally. Stomach and bowel: Partial fluid-filled small bowel without dilatation. Appendix: No evidence of appendicitis. Intraperitoneal space: Abdominal ascites diffusely. Vasculature: Likely venous contrast mixing at the right atrium. Atherosclerotic vascular calcification abdominal aorta. Lymph nodes: Unremarkable. No enlarged lymph nodes. Urinary bladder: Unremarkable as visualized. Reproductive: Unremarkable as visualized. Bones/joints: Chronic fracture deformity lower right rib posteriorly. Pars defect bilaterally at L5 with spondylolisthesis of L5 on the sacrum. Degenerative vacuum disc L5-S1. Soft tissues: Partially visible oval subcutaneous nodule in the lower right chest wall measuring 4.[address]/CT abdomen pelvis w con* [id number] IMPRESSION: 1. Hepatomegaly with diffuse heterogeneous appearance of the liver which could be due to congestion or underlying intrinsic hepatic disorder. 2. Marked cardiac enlargement with atherosclerosis thoracic aorta and distribution of coronary arteries. 3. Anasarca and prominent abdominal ascites. 4. Severely diminutive renal size bilaterally. 5. Oval right chest wall nodule partially included should be correlated clinically for palpable abnormality. Correlate to prior imaging and report of CT angiography of the chest which is not available. The possibility of gynecomastia although sub optimal visualization superiorly.
[2021-07-07] MEDS: ondansetron 2 mg/ML SDV 2 mL 4 MG IVP ×2 (06:20→19:10)
[2021-07-07] MEDS: HYDROmorphone 1 mg/mL INJ 1 mL IVP (06:22)
--- NOTE | 2021-07-07 06:28 | ED_ITS ---
HPI - SOB/Dyspnea General: Chief Complaint: Shortness of Breath/Dyspnea Stated Complaint: Off Meds, SOB Time Seen by Provider: 07/07/21 05:05 Source: patient Mode of arrival: ambulatory Limitations: no limitations History of Present Illness: HPI Narrative: 40-year-old male who has a history of chronic kidney disease is on dialysis. He supposed to dialysis Thursday states he did not receive dialysis on Thursday states he been out camping all weekend as well and has not been taking any of his blood pressure medicine. States he been having shortness of breath c hest pain and abdominal pain. He denies any worsening improving factors. Rates his pain a 7 out of 10. Associated symptoms: Reports abdominal pain and chest pain; Deny fever(s) Review of Systems Const: Denies: fever(s), chills, body aches or change in appetite Eyes: Denies: blurry vision or eye discomfort ENMT: Denies: throat pain or dental pain Card: Reports: chest pain Resp: Reports: dyspnea GI: Reports: abdominal pain : Denies: dysuria Musc: Denies: neck pain or back pain Skin/Breast: Denies: rash Neuro: Denies: headache(s) Psych: Denies: depression Jefferson/Lymph: Denies: easy bruising All/Imm: Denies: urticaria PFSH ED PFSH: Medical History Abdominal ascites Acute diastolic CHF (congestive heart failure) Anasarca Anemia Anemia Anxiety with depression Arteriovenous fistula for hemodialysis in place, secondary Congestive heart failure COPD (chronic obstructive pulmonary disease) Current smoker Degenerative disc disease, lumbar End-stage renal disease on hemodialysis ESRD (end stage renal disease) Gross hematuria Hematuria Hemoptysis Hepatomegaly Hyperkalemia Hypertension Hypertensive emergency PHT (pulmonary hypertension) Surgical History H/O hand surgery Amputation right 2&3 fingers 2017 History of adenoidectomy Family History Father No problems noted. Other Hypertension Social History Smoking and tobacco status: current every day smoker Alcohol intake: never Marital status: Number of children: 3 Current occupational status: disabled History of recent travel: No Physical Exam Const: COMMON NORMALS: patient oriented x3 GENERAL APPEARANCE: in distress, disheveled, ill appearing and frail appearing HENMT: COMMON NORMALS: normocephalic and atraumatic HEAD & SCALP: normocep halic and atraumatic Eye: COMMON NORMALS: Equal, round and reactive pupils present and EOMs intact bilaterally PUPIL: Yes Equal, round and reactive pupils present Neck/C-Spine: COMMON NORMALS: full ROM and supple Chest: COMMONS NORMALS: normal inspection of the chest and normal palpation of entire chest wall Resp: COMMON NORMALS: normal respiratory effort, No retractions, No use of accessory muscles and clear to auscultation bilaterally AUSCULTATION: clear to auscultation bilaterally Cardio: COMMON NORMALS: regular rate, regular rhythm and No murmurs present (Cardio) RATE: regular rate RHYTHM: regular rhythm GI: COMMON NORMALS: Normal to inspection, nondistended, normoactive bowel sounds present, Soft to palpation and no masses PALPATION: Yes Soft to palpation OTHER: diffuse abd tenderness Extremity: COMMON NORMALS: normal to inspection and full ROM Neuro: COMMON NORMALS: patient oriented x3, moves all extremities and no focal motor deficits Psych: COMMON NORMALS: mental status grossly normal, Normal thought process present and cooperative THOUGHT PROCESS: Normal thought process present Skin: COMMON NORMALS: no rashes or lesions noted and no wounds GENERAL SKIN EXAM: no rashes or lesions noted Course Vital Signs: Vital signs: Vital Signs Temperature 98.6 F 07/07/21 08:00 Pulse Rate 73 07/07/21 08:00 Respiratory Rate 15 07/07/21 08:00 Blood Pressure 166/106 07/07/21 08:00 Pulse Oximetry 93 07/07/21 08:00 MDM - SOB/Dyspnea Medical Decision Making Patient presents here with dyspnea also high blood pressure he does have a history of end-stage renal disease he did miss dialysis on Thursday. Patient is hyperkalemic here to give insulin and calcium will admit at this time for emergent dialysis to the ICU. Lab Data : 07/07/21 05:00 07/07/21 07:30 Labs/Radiology: Radiology Impressions Chest X-Ray 07/07/21 05:20 IMPRESSION: Increased [id number] globular cardiomegaly consistent with 4-chamber enlargment and/or pericardial effusion. Abdomen/Pelvis CT 07/07/21 06:14 IMPRESSION: 1. Hepatomegaly with diffuse heterogeneous appearance of the liver which could be due to congestion or underlying intrinsic hepatic disorder. 2. Marked cardiac enlargement with atherosclerosis thoracic aorta and distribution of coronary arteries. 3. Anasarca and prominent abdominal ascites. 4. Severely diminutive renal size bilaterally. 5. Oval right chest wall nodule partially included should be correlated clinically for palpable abnormality. Correlate to prior imaging and report of CT angiography of the chest which is not available. The possibility of gynecomastia although sub optimal visualization superiorly. Laboratory Results WBC 10.8 10^3/uL (4.0-10.0) H 07/07/21 05:00 RBC 3.91 10^6/uL (4.1-5.3) L 07/07/21 05:00 Hgb 11.3 g/dL (11.7-16.6) L 07/07/21 05:00 Hct 35.3 % (42.0-52.0) L 07/07/21 05:00 MCV 90.3 fl (80-94) 07/07/21 05:00 MCH 28.9 pg (28.0-34.0) 07/07/21 05:00 MCHC 32.0 g/dL (30.0-36.0) 07/07/21 05:00 RDW 21.8 % (12.1-15.1) H 07/07/21 05:00 Plt Count 193 10^3/cmm (130-400) 07/07/21 05:00 MPV 11.2 fL (7.4-10.4) H 07/07/21 05:00 Neut % (Auto) 88.1 % 07/07/21 05:00 Lymph % (Auto) 5.6 % 07/07/21 05:00 [place] % (Auto) 5.3 % 07/07/21 05:00 Eos % (Auto) 0.0 % 07/07/21 05:00 Baso % (Auto) 0.4 % 07/07/21 05:00 Neut # (Auto) 9.54 10^3/uL (1.8-7.7) H 07/07/21 05:00 Lymph # (Auto) 0.6 10^3/uL (0.8-4.8) L 07/07/21 05:00 [place] # (Auto) 0.6 10^3/uL (0.2-0.9) 07/07/21 05:00 Eos # (Auto) 0.0 10^3/uL (0.0-0.8) 07/07/21 05:00 Baso # (Auto) 0.0 10^3/uL (0.0-0.1) 07/07/21 05:00 Nucleated RBC % (auto) 0.5 % 07/07/21 05:00 Nucleated RBCs # 0.1 /100WBC 07/07/21 05:00 Sodium 130 mmol/L (136-145) L 07/07/21 07:30 Potassium 7.0 mmol/L (3.5-5.1) H* 07/07/21 07:30 Chloride 88 mmol/L (98-107) L 07/07/21 07:30 Carbon Dioxide 18 mmol/L (22-29) L 07/07/21 07:30 Anion Gap 31.0 (5-19) H 07/07/21 07:30 BUN 75 mg/dL (6-20) H 07/07/21 07:30 Creatinine 9.8 mg/dL (0.7-1.2) H* 07/07/21 07:30 GFR Calculation 6.0 mL/min (90-130) L 07/07/21 07:30 Glucose 62 mg/dL (65-115) L 07/07/21 07:30 Calculated Osmolality 290 mOsm/kg (285-295) 07/07/21 07:30 Lactate 4.6 mmol/L (0.5-2.2) H* 07/07/21 05:00 Calcium 9.0 mg/dL (8.5-10.5) 07/07/21 07:30 Phosphorus 10.9 mg/dL (2.5-4.5) H* 07/07/21 07:30 Magnesium 2.3 mg/dL (1.7-2.3) 07/07/21 07:30 Total Bilirubin 1.8 mg/dL (0.15-1.2) H 07/07/21 07:30 AST 2325 U/L (0-40) H 07/07/21 07:30 ALT 1271 U/L (0-41) H 07/07/21 07:30 Alkaline Phosphatase 111 IU/L (40-130) 07/07/21 07:30 Troponin T Baseline 113 ng/L (0-15) H* 07/07/21 07:30 C-Reactive Protein 120.8 mg/L (0.0-4.9) H 07/07/21 07:30 Total Protein 6.9 g/dL (6.6-8.7) 07/07/21 07:30 Albumin 3.6 g/dL (3.5-5.2) 07/07/21 07:30 Globulin 3.3 g/dL (1.3-4.6) 07/07/21 07:30 Critical Care Time Critical Care Time: Critical Care Time: Yes Total Critical Care Time: 40 Attestation: The high probability of a clinically significant, sudden or life threatening deterioration of the patient's renal system(s) required my full and direct attention, intervention and personal management. The critical care time is as shown. This time is in addition to time spent performing any reported procedures but includes the following: [x] Data and vital sign review and interpretation [x] Patient assessment, examination and intervention [x] Documentation [x] Medication orders and management Discharge Plan Discharge Patient Disposition: Admitted As Inpatient Clinical Impression: Acute hyperkalemia, Hypertension, ESRD (end stage renal disease) Condition: Stable Prescriptions: No Action Incruse Ellipta 62.5 mcg/actuation blister with device 1 inh INHALATION DAILY 0RF pantoprazole 40 mg tablet,delayed release (DR/EC) 40 mg PO BID 0RF sevelamer carbonate [Renvela] 800 mg tablet See Rx Instructions .ROUTE .COMPLEX 0RF Rx Instructions: 4 TABS PO TID AND ONE TAB BID WITH SNACKS trazodone 50 mg tablet 50 mg PO BEDTIME PRN (Reason: Sleep) 0RF fluticasone propionate 50 mcg/actuation spray,suspension 2 spray INTRANASAL DAILY PRN (Reason: Allergy Symptoms) 0RF albuterol sulfate [ProAir HFA] 90 mcg/actuation Hfa Aerosol Inhaler 2 puff INHALATION QID PRN (Reason: Shortness Of Breath) Qty: 2 4RF carvedilol 25 mg tablet 50 mg PO BID 0RF isosorbide mononitrate 60 mg tablet extended release 24 hr 60 mg PO QAM 0RF amlodipine 10 mg tablet 10 mg PO DAILY 0RF Xifaxan 550 mg tablet 550 mg PO BID 0RF clonidine 0.3 mg/24 hr Patch Weekly 0.3 mg transdermal Q7D 0RF lisinopril 20 mg tablet 20 mg PO DAILY 0RF minoxidil 2.5 mg tablet 2.5 mg PO BID 0RF hydralazine 25 mg Tablet 25 mg PO TID Qty: 90 0RF ciprofloxacin HCl [Cipro] 500 mg tablet 500 mg PO DAILY Qty: 3 0RF Rx Instructions: if taking on dialysis day take after dialysis Referrals: Mal Junior [Primary Care Provider] - Coding Level of Care Code ED Reheat Furnace Operator for g Fwd Exam Comprehensive
[2021-07-07] MEDS: iodixanol 320 mg/mL 100mL Btl IV (06:42)
--- NOTE | 2021-07-07 08:13 | ECG_ITS ---
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 Measurements Intervals Rogers Rate: 82 P: 92 ME: 208 QRS: 72 QRSD: 133 T: -11 QT: 406 QTc: 477 Interpretive Statements SINUS RHYTHM with first degree AV block INTRAVENTRICULAR CONDUCTION DELAY [130+ ms QRS DURATION] Compared to ECG 07/07/2021 05:14:16 No significant change Electronically Signed On 07-09-2021 8:06:01 HUMAN DEVELOPMENT PROFESSOR by Rosalia Dia M.D. [id number]
[2021-07-07 08:15] LABS: Albumin Level 3.6 g/dL (3.5-5.2); Alkaline Phosphatase 111 IU/L (40-130); Blood Urea Nitrogen 75 mg/dL (6-20); C Reactive Protein 120.8 mg/L (0.0-4.9); Carbon Dioxide 18 mmol/L (22-29); Chloride 88 mmol/L (98-107); Globulin 3.3 g/dL (1.3-4.6); Glucose 62 mg/dL (65-115); Magnesium 2.3 mg/dL (1.7-2.3); Osmolality Calculated 290 mOsm/kg (285-295); Sodium 130 mmol/L (136-145); Total Bilirubin 1.8 mg/dL (0.15-1.2); Total Protein 6.9 g/dL (6.6-8.7)
[2021-07-07 08:27] LABS: Alanine Aminotransferase 1271 U/L (0-41)
[2021-07-07 08:53] LABS: Aspartate Amino Transferase 2325 U/L (0-40)
[2021-07-07 08:54] LABS: Phosphorus 10.9 mg/dL (2.5-4.5)
[2021-07-07 08:55] LABS: Troponin(5th) Baseline 113 ng/L (0-15)
[2021-07-07] MEDS: dextrose 50% syringe 50 mL IVP (09:09)
[2021-07-07] MEDS: calcium gluconate 0.9% NaCL 1 GM/50 ML PREMIX IV (09:09)
[2021-07-07] MEDS: insulin regular-human 100 units/1 mL 10 UNIT IVP (09:10)
--- NOTE | 2021-07-07 09:49 | PM.HP ---
Providers/Chief Complaint Admitting Physician: Carroll Hercules MD Primary Care Provider: Mal Junior Chief Complaint: Off Meds, SOB History of Present Illness Mal Gibbs is 40 year old male with past medical history of end-stage renal disease dialysis dependent Thursday, hypertension, diastolic congestive heart failure, COPD, was brought in with chief complaint of shortness of breath and generalized abdominal pain, patient missed his dialysis on Thursday, he was also not taking his medication over the weekend as he was camping. Upon arrival in the ER he was worked up for above mentioned complaint: Pertinent imaging studies: CT abdomen pelvis w con: Hepatomegaly with diffuse heterogeneous appearance of the liver which could be due to congestion or underlying intrinsic hepatic disorder. Marked cardiac enlargement with atherosclerosis thoracic aorta and distribution of coronary arteries. Anasarca and prominent abdominal ascites. Severely diminutive renal size bilaterally. Oval right chest wall nodule partially included should be correlated. XR chest?: No infiltrates no pleural effusion no pneumothorax Pertinent labs: WBC 10.8 , H&H : 11.3/35.3 , PLT : 193 , serum sodium 130 , serum potassium 7 , BUN/ serum creatinine: 75 /9.8 , serum lactate 4.6 Total bilirubin 1.8 , AST 2325 , ALT 1271 , Baseline troponin 113 , 6 H T : 100 , Patient received hyperkalemia cocktail in the ER, plan was to dialyze him Patient also received labetalol, IV 20 mg IV x2 doses for hypertensive urgency. Review of Systems General: Reports: 10 or more systems reviewed and unremarkable except in HPI and below Const: Denies: chills or body aches Card: Denies: palpitations, edema or leg pain with exertion Resp: Denies: dyspnea, productive cough, wheezing or pain on inspiration GI: Denies: diarrhea or constipation : Denies: flank pain or difficulty urinating Musc: Denies: back pain, extremity pain or extremity swelling Neuro: Denies: headache(s), difficulty walking or confusion Medications/Allergies Home Medications Medication Instructions Recorded Confirmed Last Taken Type umeclidinium 62.5 mcg/actuation 1 inh INHALATION DAILY 05/03/20 07/07/21 05/16/21 History blister powder for inhalation (Incruse Ellipta) pantoprazole 40 mg tablet,delayed 40 mg PO DAILY 02/25/21 07/07/21 05/16/21 History release sevelamer carbonate 800 mg tablet See Rx Instructions .ROUTE .COMPLEX 02/25/21 07/07/21 05/16/21 History (Renvela) fluticasone propionate 50 2 spray INTRANASAL DAILY PRN 05/27/21 07/07/21 Unknown History mcg/actuation nasal spray,suspension trazodone 50 mg tablet 50 mg PO BEDTIME PRN 05/27/21 07/07/21 Unknown History albuterol sulfate 90 mcg/actuation 2 puff INHALATION QID PRN #2 g 06/04/21 07/07/21 Unknown Rx aerosol inhaler (ProAir HFA) amlodipine 10 mg tablet 10 mg PO DAILY 06/10/21 07/07/21 Unknown History carvedilol 25 mg tablet 50 mg PO BID 06/10/21 07/07/21 Unknown History isosorbide mononitrate 60 mg 60 mg PO QAM 06/10/21 07/07/21 Unknown History tablet,extended release 24 hr rifaximin 550 mg tablet (Xifaxan) 550 mg PO BID 06/10/21 07/07/21 Unknown History clonidine 0.3 mg/24 hr weekly 0.3 mg TRANSDERMAL Q7D 06/26/21 07/07/21 Unknown History transdermal patch lisinopril 20 mg tablet 20 mg PO DAILY 06/26/21 07/07/21 Unknown History minoxidil 2.5 mg tablet 2.5 mg PO BID 06/26/21 07/07/21 Unknown History ciprofloxacin HCl 500 mg tablet 500 mg PO DAILY #3 tab 06/28/21 07/07/21 Unknown Rx (Cipro) hydralazine 25 mg tablet 25 mg PO TID #90 tab 06/28/21 07/07/21 Unknown Rx Allergies Allergy/AdvReac Type Severity Reaction Status Date / Time nifedipine Allergy ALGY-Swell Verified 07/02/21 10:15 Lip/Tongue/Throat PFSH Acute PFSH: Medical History Abdominal ascites Acute diastolic CHF (congestive heart failure) Anasarca Anemia Anemia Anxiety with depression Arteriovenous fistula for hemodialysis in place, secondary Congestive heart failure COPD (chronic obstructive pulmonary disease) Current smoker Degenerative disc disease, lumbar End-stage renal disease on hemodialysis ESRD (end stage renal disease) Gross hematuria Hematuria Hemoptysis Hepatomegaly Hyperkalemia Hypertension Hypertensive emergency PHT (pulmonary hypertension) Surgical History H/O hand surgery Amputation right 2&3 fingers 2017 History of adenoidectomy Family History Father No problems noted. Other Hypertension Social History Smoking and tobacco status: current every day smoker Alcohol intake: never Marital status: Number of children: 3 Current occupational status: disabled History of recent travel: No Vitals/I&O/Wt Last Vital Signs Temp 98.6 F 07/07/21 08:00 Pulse 85 07/07/21 09:30 Resp 20 H 07/07/21 09:30 BP 177/120 07/07/21 09:30 Pulse Ox 94 07/07/21 09:30 Physical Exam Const: COMMON NORMALS: patient oriented x3 HENMT: COMMON NORMALS: normocephalic and atraumatic HEAD & SCALP: normocephalic and atraumatic Chest: CHEST: Yes Symmetrical chest wall rise Resp: EFFORT & INSPECTION: Yes symmetric chest movement OTHER: Diminished air entry bilaterally bilateral basal crackles Cardio: COMMON NORMALS: regular rate, regular rhythm, S1 normal heart sound present, S2 normal heart sound present, No gallops present (Cardio), No murmurs present (Cardio), No rub (Cardio) and Peripheral pulses 2+ throughout RATE: regular rate RHYTHM: regular rhythm HEART SOUNDS: S1 normal heart sound present and S2 normal heart sound present PERIPHERAL PULSES: Peripheral pulses 2+ throughout GI: AUSCULTATION: Yes normoactive bowel sounds RECTAL EXAM: Yes deferred OTHER: Distended abdomen with generalized abdominal tenderness, no guarding no rigidity no rebound tenderness Extremity: COMMON NORMALS: no clubbing, cyanosis or edema and no pedal edema Neuro: COMMON NORMALS: patient oriented x3 Data : 07/07/21 05:00 07/07/21 07:30 A&P Assessment and plan (1) Acute hyperkalemia: Status: Acute (2) COPD (chronic obstructive pulmonary disease): Status: Acute (3) ESRD (end stage renal disease): Status: Acute (4) Abdominal pain: Status: Acute Plan 40 year old male with past medical history of end-stage renal disease dialysis dependent Thursday, hypertension, diastolic congestive heart failure, COPD, was brought in with chief complaint of shortness of breath and generalized abdominal pain. #Hyperkalemia: likely secondary to missed dialysis Arrival serum potassium was 7 Patient has received hyperkalemia cocktail in the ER Current plan is to dialyze the patient Follow repeat BMP #Hypertensive urgency Resume home medications, minoxidil, hydralazine, amlodipine, carvedilol, Imdur Monitor blood pressure #Abdominal pain: Likely secondary to ascites Patient receives paracentesis as an outpatient, recently was scheduled for paracentesis but due to inadequate fluid no paracentesis was done. Currently is empirically on Zosyn, for possible SBP Can plan for diagnostic/therapeutic tap #End-stage renal disease dialysis dependent: Patient was dialyzed today Continue with routine dialysis Nephrology on board #HFpEF : Currently compensated #Shortness of breath likely secondary to missed dialysis #COPD: Currently noted exacerbation Continue duo nebs Supplemental oxygen as needed #DVT PPX: On heparin #CODE STATUS: Full code Attestations Medical Necessity Statement*: Patient needs to be hospital for management of acute hyperkalemia, hypertensive urgency. Anticipated length of stay greater than 2 midnights. Time Spent in Patient Care: Greater than 35 minutes (>than 50% of time spent in counselling and/or direct pt care on unit). Critical Care Time: 40 Other Attestations: The high probability of a clinically significant, sudden or life threatening deterioration of the patient's [] system(s) required my full and direct attention, intervention and personal management. The critical care time is as shown. This time is in addition to time spent performing any reported procedures but includes the following: [x] Data and vital sign review and interpretation [x] Patient assessment, examination and intervention [x] Documentation [x] Medication orders and management Coding Level of Care Code Acute Human Resources Services Specialist for Cristi Diane Diagnoses Acute hyperkalemia E87.5 COPD (chronic obstructive pulmonary disease) J44.9 ESRD (end stage renal disease) N18.6 Abdominal pain R10.9
[2021-07-07 09:55] LABS: Glucose Point of Care 108 mg/dL (70-110)
[2021-07-07] MEDS: heparin 5,000 unit/mL INJ 1 mL 5000 UNIT SUBCUT ×2 (10:05→21:26)
[2021-07-07] MEDS: piperacillin-tazobactam 3.375 GM in sodium chloride 0.9% (plus) 50 ML IV ×2 (10:06→21:26)
[2021-07-07 10:13] LABS: NT Pro B Type Natriuretic Pept > 70000 pg/mL (0-125)
[2021-07-07] MEDS: cloNIDine 0.1 mg Tablet 0.2 MG PO ×2 (14:21→20:04)
[2021-07-07] MEDS: hyDRALAzine 25 mg Tablet PO ×2 (14:21→20:04)
[2021-07-07 15:01] LABS: Troponin 5 6HR Delta -12.5 ng/L (0-12)
[2021-07-07 15:03] LABS: Troponin 5 6HR 100.5 ng/L (0-15)
[2021-07-07] MEDS: minoxidil 10 mg Tablet 5 MG PO (15:32)
--- NOTE | 2021-07-07 16:31 | PM.CONSULT ---
Providers/Reason For Consult Consulting Physician/Specialty*: nephro Reason for Consult*: Eval for ESRD Attending Physician: Carroll Hercules MD Primary Care Provider: Mal Junior History of Present Illness History of Present Illness Mr. Gibbs is seen and examined on hemodialysis today. He went camping and skipped dialysis, comes in feeling unwell, short of breath, some chest abdominal discomfort. Potassium 7, dialysis provided this afternoon. Going well. No new issues on dialysis, hemodynamics remained stable. Medications/Allergies Home Medications Medication Instructions Recorded Confirmed Last Taken Type umeclidinium 62.5 mcg/actuation 1 inh INHALATION DAILY 05/03/20 07/07/21 05/16/21 History blister powder for inhalation (Incruse Ellipta) pantoprazole 40 mg tablet,delayed 40 mg PO DAILY 02/25/21 07/07/21 05/16/21 History release sevelamer carbonate 800 mg tablet See Rx Instructions .ROUTE .COMPLEX 02/25/21 07/07/21 05/16/21 History (Renvela) fluticasone propionate 50 2 spray INTRANASAL DAILY PRN 05/27/21 07/07/21 Unknown History mcg/actuation nasal spray,suspension trazodone 50 mg tablet 50 mg PO BEDTIME PRN 05/27/21 07/07/21 Unknown History albuterol sulfate 90 mcg/actuation 2 puff INHALATION QID PRN #2 g 06/04/21 07/07/21 Unknown Rx aerosol inhaler (ProAir HFA) amlodipine 10 mg tablet 10 mg PO DAILY 06/10/21 07/07/21 Unknown History carvedilol 25 mg tablet 50 mg PO BID 06/10/21 07/07/21 Unknown History isosorbide mononitrate 60 mg 60 mg PO QAM 06/10/21 07/07/21 Unknown History tablet,extended release 24 hr rifaximin 550 mg tablet (Xifaxan) 550 mg PO BID 06/10/21 07/07/21 Unknown History clonidine 0.3 mg/24 hr weekly 0.3 mg TRANSDERMAL Q7D 06/26/21 07/07/21 Unknown History transdermal patch lisinopril 20 mg tablet 20 mg PO DAILY 06/26/21 07/07/21 Unknown History minoxidil 2.5 mg tablet 2.5 mg PO BID 06/26/21 07/07/21 Unknown History ciprofloxacin HCl 500 mg tablet 500 mg PO DAILY #3 tab 06/28/21 07/07/21 Unknown Rx (Cipro) hydralazine 25 mg tablet 25 mg PO TID #90 tab 06/28/21 07/07/21 Unknown Rx Allergies Allergy/AdvReac Type Severity Reaction Status Date / Time nifedipine Allergy LIZ-Mac Verified 07/02/21 10:15 Lip/Tongue/Throat Current Medications Generic Name Dose Route Start Last Admin Trade Name Yadiel PRN Reason Stop Dose Admin Clonidine HCl 0.2 mg 07/07/21 15:00 07/07/21 14:21 Clonidine 0.1 Mg Tablet PO 0.2 mg TID ARTEM Administration Heparin Sodium (Porcine) 5,000 unit 07/07/21 09:45 07/07/21 10:05 Heparin 5,000 Unit/Ml Inj 1 Ml SUBCUT 5,000 unit Q12H ARTEM Administration Hydralazine HCl 25 mg 07/07/21 15:00 07/07/21 14:21 Hydralazine 25 Mg Tablet PO 25 mg TID ARTEM Administration Piperacillin Sod/Tazobactam 50 mls @ 12.5 mls/hr 07/07/21 10:00 07/07/21 10:14 Sod 3.375 gm/ Sodium Chloride IV 12.5 mls/hr Q12H ARTEM Infusion Protocol PFSH Acute PFSH: Medical History Abdominal ascites Acute diastolic CHF (congestive heart failure) Anasarca Anemia Anemia Anxiety with depression Arteriovenous fistula for hemodialysis in place, secondary Congestive heart failure COPD (chronic obstructive pulmonary disease) Current smoker Degenerative disc disease, lumbar End-stage renal disease on hemodialysis ESRD (end stage renal disease) Gross hematuria Hematuria Hemoptysis Hepatomegaly Hyperkalemia Hypertension Hypertensive emergency PHT (pulmonary hypertension) Surgical History H/O hand surgery Amputation right 2&3 fingers 2017 History of adenoidectomy Family History Father No problems noted. Other Hypertension Social History Smoking and tobacco status: current every day smoker Alcohol intake: never Marital status: Number of children: 3 Current occupational status: disabled History of recent travel: No Vitals/I&O/Wt Last Vital Signs Temp 98.7 F 07/07/21 12:17 Pulse 81 07/07/21 14:46 Resp 13 07/07/21 13:20 BP 169/117 07/07/21 13:20 Pulse Ox 94 07/07/21 13:20 07/07/21 07/07/21 07/07/21 06:59 14:59 22:59 Intake Total 51.667 / 51.667 Balance 51.667 / 51.667 Weight last 48 hrs Weight 74.417 kg Data : 07/07/21 05:00 07/07/21 07:30 Micro: Microbiology 07/07/21 11:29 Blood Culture - Preliminary Blood SPECIMEN COLLECTED 07/07/21 11:28 Blood Culture - Preliminary Blood SPECIMEN COLLECTED A&P Assessment and plan (1) Acute hyperkalemia: 1. ESRD Emergency dialysis this afternoon We will evaluate tomorrow versus provide dialysis for him on Thursday Dose medication for GFR less than 15 2. Hypertension Blood pressure should come down with ultrafiltration on dialysis, continue home medications, no adjustment until after ultrafiltration 3. Chemistry Hypokalemia noted, will check potassium levels tomorrow as dialysis was successful today. 4. Dialysis compliance Use of plan his vacation trips better to avoid critical hyperkalemia and risk of . I did discuss this with him neuro, on voices no working Thank you for consultation, as always it is a pleasure to follow these cases with you Caden Salazar MD Nephrology [phone] Patient seen and examined via telemedicine, with the assistance of the bedside RN > 25 min spent in evaluation and mgmt of patient Status: Acute Coding Level of Care Code Acute Cephalometric Tracer for Cristi Fwchloé Diagnoses Acute hyperkalemia E87.5
[2021-07-07] MEDS: carvedilol 25 mg Tablet 50 MG PO (18:10)
[2021-07-07] MEDS: HYDROcodone-acetaminophen 5-325 mg Tablet 1 TAB PO (19:10)
[2021-07-07] MEDS: bisacodyl 5 mg Tablet 10 MG PO (19:13)
[2021-07-07] MEDS: trazodone 50 mg Tablet PO (21:26)
[2021-07-08] VITALS (38 sets, daily range): BP systolic 107–134; BP diastolic 59–92; PULSE 53–60; RESP 10–21; TEMP 36.6–36.7; O2SAT 89–100
[2021-07-08 03:32] LABS: Basophils # 0.1 10^3/uL (0.0-0.1); Basophils % 1.7 %; Eosinophils # 0.7 10^3/uL (0.0-0.8); Eosinophils % 9.2 %; Hematocrit 33.4 % (42.0-52.0); Hemoglobin 10.5 g/dL (11.7-16.6); Lymphocytes # 0.7 10^3/uL (0.8-4.8); Lymphocytes % 9.2 %; Mean Corpuscular HGB Conc 31.4 g/dL (30.0-36.0); Mean Corpuscular Hemoglobin 28.7 pg (28.0-34.0); Mean Corpuscular Volume 91.3 fl (80-94); Mean Platelet Volume 11.2 fL (7.4-10.4); Monocytes # 0.2 10^3/uL (0.2-0.9); Monocytes % 3.2 %; Neutrophils # 5.47 10^3/uL (1.8-7.7); Neutrophils % 76.4 %; Nucleated Red Blood Cells % 0.4 %; Platelet Count 161 10^3/cmm (130-400); Red Blood Count 3.66 10^6/uL (4.1-5.3); Red Cell Distribution Width 21.9 % (12.1-15.1); White Blood Count 7.2 10^3/uL (4.0-10.0)
[2021-07-08 03:50] LABS: Lactic Sepsis W/Reflex 0.8 mmol/L (0.5-2.2)
[2021-07-08 03:58] LABS: Slide Review Slide Review Perform
[2021-07-08 03:59] LABS: Albumin Level 2.9 g/dL (3.5-5.2); Alkaline Phosphatase 116 IU/L (40-130); Anion Gap 21.8 (5-19); Blood Urea Nitrogen 60 mg/dL (6-20); Carbon Dioxide 24 mmol/L (22-29); Chloride 93 mmol/L (98-107); Globulin 2.8 g/dL (1.3-4.6); Glomerular Filtration Rate 7.5 mL/min (90-130); Glucose 90 mg/dL (65-115); Osmolality Calculated 294 mOsm/kg (285-295); Potassium 4.8 mmol/L (3.5-5.1); Procalcitonin 26.28 ng/mL (0-0.5); Sodium 134 mmol/L (136-145); Total Bilirubin 1.2 mg/dL (0.15-1.2); Total Protein 5.7 g/dL (6.6-8.7)
[2021-07-08 04:06] LABS: Phosphorus 8.8 mg/dL (2.5-4.5)
[2021-07-08 04:13] LABS: Alanine Aminotransferase 1163 U/L (0-41)
[2021-07-08 04:15] LABS: Aspartate Amino Transferase 1130 U/L (0-40)
[2021-07-08] MEDS: amlodipine 10 mg Tablet PO (08:41)
[2021-07-08] MEDS: hyDRALAzine 25 mg Tablet PO ×2 (08:41→14:26)
[2021-07-08] MEDS: cloNIDine 0.1 mg Tablet 0.2 MG PO ×2 (08:41→14:26)
[2021-07-08] MEDS: pantoprazole DR 40 mg Tablet PO (08:41)
[2021-07-08] MEDS: heparin 5,000 unit/mL INJ 1 mL 5000 UNIT SUBCUT (08:44)
[2021-07-08] MEDS: piperacillin-tazobactam 3.375 GM in sodium chloride 0.9% (plus) 50 ML IV (09:06)
--- NOTE | 2021-07-08 09:11 | US_ITS ---
WS: [id number] INDICATION: Ascites TECHNIQUE: ultrasound 4 quadrant abdomen. FINDINGS: Mild abdominal ascites similar in appearance to July 02, 2021. Ascites appears slightly i ncreased in some areas compared to previous. US/US abdomen lmt fluid [id number] IMPRESSION: Mild abdominal ascites.
--- NOTE | 2021-07-08 11:14 | PC.CHAP ---
Pastoral Care Encounter/Spiritual Assessment Type of Contact [] Declined portfolio mgr visit [] Patient/Family/Request visit [] Outpatient visit [] Follow-up visit [] Physician referral [] Code/Alert [x] Routine visit [] Staff referral [] Actively dying [x] Patient sleeping [] Family support [] [] Out of room [] Palliative care [] [] Receiving care in room [] Pre-surgical visit [] Trauma [] Long length of stay [x] ICU visit [] Other: Relational/Emotional Strength [] Patient feels connected with others/family/visitors/staff [] Distress [] Loneliness/isolation [] Abandonment Spirituality of Patient [] Person of Ct [] Attends Religion of their Ct [] Believes in Prayer [] Reads Bible or Sabianist materials [] There are Spiritual issues to be addressed Tooling Engineering Tech Interventions [x] Prayer [] Active listening [] Non-anxious presence [] Spiritual/emotional support [] Crisis/trauma care [] Spiritual counseling [] Bereavement support [] Provided bereavement packet [] Provided Bible/devotional materials [] Provided toy/stuffed animal, coloring book to patient or family member [] Provided Communion [] Anointing/[place] [] Salvation [x] Completed spiritual assessment [] Other: Impact on Illness or Injury [] Angry [] Fearful [] Anxious [] Often cries [] Exhaustion [] Unable to work [] Unable to attend yarsani [] Unable to walk/stand [] Unable to read [] Unable to drive [] Unable to eat/drink [] Unable to sleep [] Unable to be with family [] Patient intubated [] Other: Summary Time spent with patient
[2021-07-08 12:31] LABS: INR 2.17 (0.8-1.2)
[2021-07-08 12:32] LABS: Partial Thromboplastin Time 42.6 SECONDS (23.9-36.7)
--- NOTE | 2021-07-08 15:48 | PM.DCS ---
Discharge Providers Date of Admission: 07/07/21 08:58 Date of Discharge: July 08, 2021 Attending Provider at Admission: Carroll Hercules MD Attending Provider at Discharge: Kerwin Platt MD Consults: Telemetry nephrology: Primary Care Provider: Mal Junior Diagnoses at Discharge Discharge Diagnosis (1) Acute hyperkalemia: Status: Acute (2) COPD (chronic obstructive pulmonary disease): Status: Acute (3) ESRD (end stage renal disease): Status: Acute (4) Abdominal pain: Status: Acute (5) Transaminitis: Status: Acute (6) Right heart failure with reduced right ventricular function: Status: Acute Reason for Visit Reason for Visit: Off Meds, SOB Brief History: History as per HPI: Mal Gibbs is 40 year old male with past medical history of end-stage renal disease dialysis dependent Thursday, hypertension, diastolic congestive heart failure, COPD, was brought in with chief complaint of shortness of breath and generalized abdominal pain, patient missed his dialysis on Thursday, he was also not taking his medication over the weekend as he was camping. Hospital Course Hospital Course Patient was admitted to the ICU for further evaluation and management of hypercalcemia, uncontrolled hypertension, mild congestive heart failure secondary to missed dialysis. Nephrology was consulted and he underwent [id number] dialysis. Patient's antihypertensives were restarted. His blood pressures were better controlled. He was found to have transaminitis during hospitalization. CT chest abdomen pelvis was done which ruled out any acute abnormality leading to transaminitis. Patient's HIV and hepatitis panel has been negative in the past.. It is believed if transaminitis is most likely secondary to right-sided heart failure with reduced right-sided systolic functions secondary to chronic uncontrolled hypertension and diastolic heart failure. CT abdomen pelvis showed moderate ascites for which ultrasound-guided paracentesis was requested but could not be done as patient had received heparin in the morning and on reassessment with ultrasound patient only had mild peritoneal fluid. Patient has been set up as an outpatient to follow-up for paracentesis in 1 week. Is been discharged in hemodynamically stable condition with advice and counseling to continue taking his oral antihypertensives, compliance with dialysis and outpatient paracentesis. Discharge Data Studies Completed and Pending Completed Studies During Hospitalization Category Date Time Status CT abdomen pelvis w con* [id number] Urgent Cat Scan 07/07/21 06:14 Completed XR chest 1V portable [id number] Urgent Exams 07/07/21 05:20 Completed US abdomen lmt fluid [id number] Routine Ultrasound 07/08/21 09:11 Completed Pending at discharge Category Date Time Status Albumin Body Fluid Routine Lab 07/08/21 13:09 Ordered Amylase Body Fluid Routine Lab 07/08/21 13:09 Ordered Anaerobic Culture Routine Lab 07/08/21 13:09 Ordered Blood Culture Routine Lab 07/07/21 11:29 Results Body Fluid Analysis Routine Lab 07/08/21 13:09 Ordered Body Fluid Culture & GS Routine Lab 07/08/21 13:09 Ordered Body Fluid Specific Harris Routine Lab 07/08/21 13:09 Ordered Cholesterol Body Fluid Routine Lab 07/08/21 13:09 Ordered Complete Blood Count w/Auto AM LABS Lab 07/09/21 04:00 Ordered Complete Blood Count w/Auto AM LABS Lab 07/10/21 04:00 Ordered Comprehensive Metabolic Panel AM LABS Lab 07/09/21 04:00 Ordered Comprehensive Metabolic Panel AM LABS Lab 07/10/21 04:00 Ordered Fluid Alkaline Phos. Routine Lab 07/08/21 13:09 Ordered Glucose Body Fluid Routine Lab 07/08/21 13:09 Ordered LDH Body Fluid Routine Lab 07/08/21 13:09 Ordered Mycobacteria, Culture w/Fluor Routine Lab 07/08/21 13:09 Ordered Total Protein Body Fluid Routine Lab 07/08/21 13:09 Ordered Triglycerides Body Fluid Routine Lab 07/08/21 13:09 Ordered Uric Acid Body Fluid Routine Lab 07/08/21 13:09 Ordered pH Body Fluid Routine Lab 07/08/21 13:09 Ordered Cytology [PTH] Routine Pth 07/08/21 13:09 Ordered Radiology Impressions Chest X-Ray 07/07/21 05:20 IMPRESSION: Increased seby-[id number] globular cardiomegaly consistent with 4-chamber enlargment and/or pericardial effusion. Abdomen/Pelvis CT 07/07/21 06:14 IMPRESSION: 1. Hepatomegaly with diffuse heterogeneous appearance of the liver which could be due to congestion or underlying intrinsic hepatic disorder. 2. Marked cardiac enlargement with atherosclerosis thoracic aorta and distribution of coronary arteries. 3. Anasarca and prominent abdominal ascites. 4. Severely diminutive renal size bilaterally. 5. Oval right chest wall nodule partially included should be correlated clinically for palpable abnormality. Correlate to prior imaging and report of CT angiography of the chest which is not available. The possibility of gynecomastia although sub optimal visualization superiorly. Abdomen Ultrasound 07/08/21 09:11 IMPRESSION: Mild abdominal ascites. Laboratory Results WBC 7.2 10^3/uL (4.0-10.0) 07/08/21 02:39 RBC 3.66 10^6/uL (4.1-5.3) L 07/08/21 02:39 Hgb 10.5 g/dL (11.7-16.6) L 07/08/21 02:39 Hct 33.4 % (42.0-52.0) L 07/08/21 02:39 MCV 91.3 fl (80-94) 07/08/21 02:39 MCH 28.7 pg (28.0-34.0) 07/08/21 02:39 MCHC 31.4 g/dL (30.0-36.0) 07/08/21 02:39 RDW 21.9 % (12.1-15.1) H 07/08/21 02:39 Plt Count 161 10^3/cmm (130-400) 07/08/21 02:39 MPV 11.2 fL (7.4-10.4) H 07/08/21 02:39 Neut % (Auto) 76.4 % 07/08/21 02:39 Lymph % (Auto) 9.2 % 07/08/21 02:39 [place] % (Auto) 3.2 % 07/08/21 02:39 Eos % (Auto) 9.2 % 07/08/21 02:39 Baso % (Auto) 1.7 % 07/08/21 02:39 Neut # (Auto) 5.47 10^3/uL (1.8-7.7) 07/08/21 02:39 Lymph # (Auto) 0.7 10^3/uL (0.8-4.8) L 07/08/21 02:39 [place] # (Auto) 0.2 10^3/uL (0.2-0.9) 07/08/21 02:39 Eos # (Auto) 0.7 10^3/uL (0.0-0.8) 07/08/21 02:39 Baso # (Auto) 0.1 10^3/uL (0.0-0.1) 07/08/21 02:39 Nucleated RBC % (auto) 0.4 % 07/08/21 02:39 Nucleated RBCs # 0.0 /100WBC 07/08/21 02:39 PT 24.60 SECONDS (12.1-14.9) H 07/08/21 11:40 INR 2.17 (0.8-1.2) H 07/08/21 11:40 APTT 42.6 SECONDS (23.9-36.7) H 07/08/21 11:40 Sodium 134 mmol/L (136-145) L 07/08/21 02:39 Potassium 4.8 mmol/L (3.5-5.1) 07/08/21 02:39 Chloride 93 mmol/L (98-107) L 07/08/21 02:39 Carbon Dioxide 24 mmol/L (22-29) 07/08/21 02:39 Anion Gap 21.8 (5-19) H 07/08/21 02:39 BUN 60 mg/dL (6-20) H 07/08/21 02:39 Creatinine 8.1 mg/dL (0.7-1.2) H* 07/08/21 02:39 GFR Calculation 7.5 mL/min (90-130) L 07/08/21 02:39 Glucose 90 mg/dL (65-115) 07/08/21 02:39 POC Glucose 108 mg/dL (70-110) 07/07/21 09:51 Calculated Osmolality 294 mOsm/kg (285-295) 07/08/21 02:39 Lactic Acid 0.8 mmol/L (0.5-2.2) 07/08/21 02:39 Lactate 4.6 mmol/L (0.5-2.2) H* 07/07/21 05:00 Calcium 8.0 mg/dL (8.5-10.5) L 07/08/21 02:39 Phosphorus 8.8 mg/dL (2.5-4.5) H* 07/08/21 02:39 Magnesium 2.3 mg/dL (1.7-2.3) 07/07/21 07:30 Total Bilirubin 1.2 mg/dL (0.15-1.2) 07/08/21 02:39 AST 1130 U/L (0-40) H 07/08/21 02:39 ALT 1163 U/L (0-41) H 07/08/21 02:39 Alkaline Phosphatase 116 IU/L (40-130) 07/08/21 02:39 Troponin T Baseline 113 ng/L (0-15) H* 07/07/21 07:30 Troponin T Hi Sens 6Hr 100.5 ng/L (0-15) H 07/07/21 13:35 Troponin T Hi Sens 6Hr Delta -12.5 ng/L (0-12) L 07/07/21 13:35 C-Reactive Protein 120.8 mg/L (0.0-4.9) H 07/07/21 07:30 NT-Pro-B Natriuret Pep > 33209 pg/mL (0-125) H 07/07/21 07:30 Total Protein 5.7 g/dL (6.6-8.7) L 07/08/21 02:39 Albumin 2.9 g/dL (3.5-5.2) L 07/08/21 02:39 Globulin 2.8 g/dL (1.3-4.6) 07/08/21 02:39 Procalcitonin 26.28 ng/mL (0-0.5) H 07/08/21 02:39 Vitals Last Vital Signs Temp 98.0 F 07/08/21 07:30 Pulse 56 L 07/08/21 14:00 Resp 11 L 07/08/21 14:00 BP 114/72 07/08/21 14:26 Pulse Ox 96 07/08/21 14:00 Discharge Plan Discharge Patient Disposition: Home Condition: Stable Prescriptions: Continued Incruse Ellipta 62.5 mcg/actuation blister with device 1 inh INHALATION DAILY 0RF pantoprazole 40 mg tablet,delayed release (DR/EC) 40 mg PO DAILY 0RF sevelamer carbonate [Renvela] 800 mg tablet See Rx Instructions .ROUTE .COMPLEX 0RF Rx Instructions: 4 TABS PO TID AND ONE TAB BID WITH SNACKS trazodone 50 mg tablet 50 mg PO BEDTIME PRN (Reason: Sleep) 0RF fluticasone propionate 50 mcg/actuation spray,suspension 2 spray INTRANASAL DAILY PRN (Reason: Allergy Symptoms) 0RF albuterol sulfate [ProAir HFA] 90 mcg/actuation Hfa Aerosol Inhaler 2 puff INHALATION QID PRN (Reason: Shortness Of Breath) Qty: 2 4RF carvedilol 25 mg tablet 50 mg PO BID 0RF isosorbide mononitrate 60 mg tablet extended release 24 hr 60 mg PO QAM 0RF amlodipine 10 mg tablet 10 mg PO DAILY 0RF Xifaxan 550 mg tablet 550 mg PO BID 0RF clonidine 0.3 mg/24 hr Patch Weekly 0.3 mg transdermal Q7D 0RF minoxidil 2.5 mg tablet 2.5 mg PO BID 0RF hydralazine 25 mg Tablet 25 mg PO TID Qty: 90 0RF ciprofloxacin HCl [Cipro] 500 mg tablet 500 mg PO DAILY Qty: 3 0RF Rx Instructions: if taking on dialysis day take after dialysis Discontinued lisinopril 20 mg tablet 20 mg PO DAILY 0RF Discharge Orders: Discharge Order (Routine); Ordered 07/08/21 Ordered By: Kerwin Platt Referrals: Mal Junior [Primary Care Provider] - 2 weeks Discharge Diet: Cardiac Discharge Activity: Resume usual activity and Increase activity as tolerated Patient Instructions: Opioid Safety Activity Restrictions/Additional Instructions: Please continue taking antihypertensives as prescribed. Please continue to be compliant with your dialysis sessions as an outpatient. Please follow-up with a primary care provider within next 2 weeks. Please follow-up for GI Lab onset appointment for outpatient paracentesis. Discharge Attestations Time Spent in Discharge Care*: greater than 30 min Status at Discharge: Cognitive status at discharge: cognitively intact, Behavioral status at discharge: cooperative, Functional status at discharge: independent ambulation, Overall status at discharge: patient is back to baseline Quality Metrics Clinical Quality Measures [ No reported AMI, CVA or VTE this stay] Coding Level of Care Code Acute Chg FW DC note Diagnoses Acute hyperkalemia E87.5 COPD (chronic obstructive pulmonary disease) J44.9 ESRD (end stage renal disease) N18.6 Abdominal pain R10.9 Transaminitis R74.01 Right heart failure with reduced right ventricular function I50.810
--- NOTE | 2021-07-08 15:56 | PM.PN ---
Subjective Subjective: No new issues with Mr. Gibbs today. Some abdominal distention which is not new for him, some chronic extremity edema which is relatively mild. Dialysis went well yesterday. Possible discharge later on today noted. Vitals/I&O/Wt Last Vital Signs Temp 98.0 F 07/08/21 07:30 Pulse 60 07/08/21 14:00 Resp 11 L 07/08/21 14:00 BP 114/72 07/08/21 14:26 Pulse Ox 96 07/08/21 14:00 07/08/21 07/08/21 07/08/21 06:59 14:59 22:59 Intake Total 250 / 822.000 530 / 530 Output Total 500 / 3450 Balance -250 / -2628.000 530 / 530 Weight last 48 hrs Weight 71.1 kg Weight 74.417 kg Data : 07/08/21 02:39 07/08/21 02:39 Micro: Microbiology 07/07/21 11:29 Blood Culture - Preliminary Blood NEGATIVE TO DATE 07/07/21 11:28 Blood Culture - Preliminary Blood NEGATIVE TO DATE A&P Assessment and plan (1) Acute hyperkalemia: 1. ESRD Okay to wait for dialysis until Thursday and continue his outpatient schedule. If he is here tomorrow for what ever reason I will dialyze him in the hospital. Dose medication for GFR less than 15 2. Hypertension Blood pressure came down nicely with hemodynamics and outpatient medication. 3. Chemistry well balanced 4. Dialysis compliance Use of plan his vacation trips better to avoid critical hyperkalemia and risk of . I did discuss this with him neuro, on voices no working Okay for discharge later on today from my own perspective. Thank you for consultation, as always it is a pleasure to follow these cases with you Caden Salazar MD Nephrology [phone] Patient seen and examined via telemedicine, with the assistance of the bedside RN > 25 min spent in evaluation and mgmt of patient Status: Acute Attestations Medical Necessity Statement*: eval for ESRD Coding Level of Care Code Acute Senior Integration Architect for Adriannag Fwchloé Diagnoses Acute hyperkalemia E87.5
== END 2021-07-08 17:10 | disposition home or self-care (01) | DRG 291 ==
LOC: ER 09:08 → ICU 09:41
PROVIDERS: Emergency Medicine; Admitting Provider Internal Medicine; Emergency Provider Emergency Medicine; PCP Family Medicine; Visit Provider Student in an Organized Health Care Education/Training Program
DX: I13.2 Hypertensive heart and chronic kidney disease with heart failure and with stage 5 chronic kidney disease, or end stage renal disease (principal); N18.6 End stage renal disease; J44.1 Chronic obstructive pulmonary disease with (acute) exacerbation; R18.8 Other ascites; I50.32 Chronic diastolic (congestive) heart failure; E87.5 Hyperkalemia; I16.0 Hypertensive urgency; T46.5X6A Underdosing of other antihypertensive drugs, initial encounter; F17.200 Nicotine dependence, unspecified, uncomplicated; I50.810 Right heart failure, unspecified; Z99.2 Dependence on renal dialysis; Z91.15 Patient's noncompliance with renal dialysis; Z89.021 Acquired absence of right finger(s)
CPT/HCPCS: 36415; 36416; 49083; 71045; 74177; 76705; 80053; 82962; 83605; 83735; 83880; 84100; 84145; 84484; 85025; 85610; 85730; 86140; 87040; 90935; 93005; 96372; 96374; 96375; 96376; 99285; J0610; J1170; J1644; J1815; J2405; J2543; J3490; Q9967

== ENCOUNTER 2021-07-17 11:41 | Inpatient (IN) | payer MEDICARE, MEDICAID, SELFPAY ==
[2021-07-17] VITALS (7 sets, daily range): BP systolic 147–191; BP diastolic 76–109; PULSE 71–89; RESP 15–22; TEMP 36.5–36.9; O2SAT 95–98; BMI 23.1
--- NOTE | 2021-07-17 12:10 | ECG_ITS ---
[facility] Test Date: 2021-07-17 Pat Name: Mal Gibbs Department: Room: Gender: Male Social Worker Aide: : 1980 Requested By: Pato Spencer Order Number: [id number] Mohini MD: Brijesh King M.D. Measurements Intervals [place] Rate: 75 P: 53 IL: 213 QRS: 64 QRSD: 114 T: -61 QT: 399 QTc: 448 Interpretive Statements SINUS RHYTHM WITH FIRST DEGREE AV BLOCK MODERATE INTRAVENTRICULAR CONDUCTION DELAY [110+ ms QRS DURATION] MODERATE T-WAVE ABNORMALITY, CONSIDER INFERIOR ISCHEMIA [-0.1+ mV T-WAVE IN II/aVF] Compared to ECG 07/15/2021 07:33:36 First degree AV block now present T-wave abnormality still present Possible ischemia still present Electronically Signed On 07-17-2021 18:42:52 CDT by Brijesh King M.D. [id number] f
--- NOTE | 2021-07-17 12:10 | XR_ITS ---
WS: [id number] XR chest 1V portable [id number] REASON FOR EXAM: dyspnea/cough FINDINGS: There is marked cardiomegaly. Compared to previous examination of 07/14/2021, there is a decrease in the overall interstitial bronch ovascular opacities suggesting decreased vascular congestion and decreased interstitial edema. There is increased opacity in the left lower lung which presumably represents interval atelectasis. Blunting of the left costophrenic angle indicative of small effusion and/or scarring is again noted. XR/XR chest 1V portable [id number] IMPRESSION: Overall improvement in the appearance of the chest as above with interval devel opment of atelectasis in the left lower lung.
--- NOTE | 2021-07-17 12:11 | US_ITS ---
WS: [id number] ULTRASOUND-GUIDED PARACENTESIS CLINICAL INFORMATION: ascites COMPARISON: None. Procedure Informed consent: The risks, benefits, and alternatives of the procedure were discussed with the mariah ent. Verbal and written consent was obtained. Timeout: A timeout was performed to confirm the correct patient, procedure, and site. Preparation: A suitable skin site was identified. The patient was prepped and draped in usual sterile fashion. Lidocaine 1% was used for local anesthesia. Catheter: 4 [place] One-step Yueh catheter. Side: LEFT Lower quadrant. Fluid Volume: 5600 ml Color: Dark yellow DISPOSITION: Discarded safely. Complications: None. US/US paracentesis abd w [id number] IMPRESSION: Uncomplicated ultrasound-guided paracentesis. Removal of 5600 cc
[2021-07-17 12:24] LABS: Basophils % 0.5 %; Eosinophils # 0.7 10^3/uL (0.0-0.8); Eosinophils % 16.4 %; Hematocrit 33.6 % (42.0-52.0); Hemoglobin 10.3 g/dL (11.7-16.6); Lymphocytes # 0.3 10^3/uL (0.8-4.8); Lymphocytes % 6.3 %; Mean Corpuscular HGB Conc 30.7 g/dL (30.0-36.0); Mean Corpuscular Hemoglobin 28.4 pg (28.0-34.0); Mean Corpuscular Volume 92.6 fl (80-94); Mean Platelet Volume 10.2 fL (7.4-10.4); Monocytes # 0.5 10^3/uL (0.2-0.9); Monocytes % 11.9 %; Neutrophils # 2.76 10^3/uL (1.8-7.7); Neutrophils % 64.7 %; Nucleated Red Blood Cells % 0 %; Platelet Count 205 10^3/cmm (130-400); Red Blood Count 3.63 10^6/uL (4.1-5.3); Red Cell Distribution Width 22.2 % (12.1-15.1); White Blood Count 4.3 10^3/uL (4.0-10.0)
[2021-07-17] MEDS: haloperidol inj 5 mg/mL INJ 1 mL 2.5 MG IVP (12:33)
[2021-07-17] MEDS: HYDROmorphone 1 mg/mL INJ 1 mL 0.5 MG IVP (12:33)
[2021-07-17 12:52] LABS: Alanine Aminotransferase 105 U/L (0-41); Albumin Level 3.6 g/dL (3.5-5.2); Alkaline Phosphatase 130 IU/L (40-130); Anion Gap 18.8 (5-19); Aspartate Amino Transferase 21 U/L (0-40); Blood Urea Nitrogen 44 mg/dL (6-20); Calcium 9.6 mg/dL (8.5-10.5); Carbon Dioxide 25 mmol/L (22-29); Chloride 91 mmol/L (98-107); Globulin 3.4 g/dL (1.3-4.6); Glomerular Filtration Rate 8.3 mL/min (90-130); Glucose 76 mg/dL (65-115); Osmolality Calculated 278 mOsm/kg (285-295); Phosphorus 6.1 mg/dL (2.5-4.5); Potassium 5.8 mmol/L (3.5-5.1); Sodium 129 mmol/L (136-145); Total Bilirubin 0.6 mg/dL (0.15-1.2)
--- NOTE | 2021-07-17 13:13 | ED_ITS ---
HPI - Nausea/Vomiting/Diarrhea General: Chief complaint: Nausea/Vomiting/Diarrhea Stated complaint: n/v, abdominal pain Time Seen by Provider: 07/17/21 11:56 Source: patient Mode of arrival: ambulatory Limitations: no limitations History of Present Illness: 40-year-old male presents emergency room with complaint of nausea vomiting abdominal pain pain. Patient has history of end- stage liver disease and renal disease. He has been referred to tertiary care but has declined. He was discharged yesterday after being here for nausea and vomiting he is having recurrence again today he frequently attends the ER with this complaint usually resolves with administration of narcotics. He was being seen at the pain clinic but that doctor retired and is not been getting any pain medications as well as meds for now. MD elicited complaint: nausea and vomiting Pertinent past history: other (Chronic abdominal pain) Onset (ago): hour(s) Description of vomiting: food contents and bilious Associated nausea: Yes Associated abdominal pain: Yes Location of pain: Diffuse Radiation: diffuse Pain consistency: constant Severity: severe Quality: cramping Exacerbating factors: eating and vomiting Relieving factors: medication Associated symtoms: Reports anxiety, bloating, anorexia, malaise, nausea and weakness; Denies altered mental status, change in vision, chest pain, cough, diaphoresis, dizziness, dysuria, epistaxis, fatigue, fecal incontinence, fevers/chills, headache(s), myalgias, numbness, palpitations, rash, short of breath, syncope, tenesmus or tinnitus Treatment prior to arrival: none Review of Systems Const: Reports: malaise; Denies: fatigue or diaphoresis Eyes: Denies: change in vision ENMT: Denies: tinnitus or epistaxis Card: Denies: chest pain, palpitations or syncope Resp: Denies: dyspnea, productive cough or non-productive cough GI: Reports: nausea and bloating; Denies: fecal incontinence : Denies: dysuria Skin/Breast: Denies: rash or pruritus Neuro: Denies: headache(s) or dizziness Psych: Reports: anxiety PFSH ED PFSH: Medical History (HFpEF) heart failure with preserved ejection fraction Abdominal ascites Abdominal distention Abnormality of rib determined by X-ray Acute diastolic CHF (congestive heart failure) Anasarca Anemia Anxiety with depression Arteriovenous fistula for hemodialysis in place, secondary Ascites Chronic abdominal pain Congestive heart failure COPD (chronic obstructive pulmonary disease) COPD (chronic obstructive pulmonary disease) COVID 05/25 Current smoker Degenerative disc disease, lumbar End stage renal disease End-stage renal disease on hemodialysis ESRD (end stage renal disease) Gross hematuria Hemoptysis Hepatomegaly Hyperkalemia Hyperkalemia Hypertension Hypertension Hypertensive emergency Ileus PHT (pulmonary hypertension) Pulmonary embolism 09/21 Inconclusive for very tiny peripheral LEFT lower lobe pulmonary artery sub segmental emboli versus poor opacification. Right heart failure with reduced right ventricular function Smoking addiction Transaminitis Urethral stricture Surgical History H/O hand surgery Amputation right 2&3 fingers 2017 History of adenoidectomy Family History Father No problems noted. Other Hypertension Social History Smoking and tobacco status: current every day smoker Alcohol intake: never Marital status: Number of children: 3 Current occupational status: disabled History of recent travel: No Physical Exam Const: COMMON NORMALS: no acute distress EXAM LIMITATIONS: no altered mental status GENERAL APPEARANCE: cooperative and comfortable ORIENTATION/CONSCIOUSNESS: Yes awake, Yes oriented to person, Yes oriented to place and Yes oriented to time HENMT: COMMON NORMALS: normocephalic, atraumatic and hearing grossly normal bilaterally HEAD & SCALP: normocephalic and atraumatic Neck/C-Spine: COMMON NORMALS: no JVD Resp: COMMON NORMALS: normal respiratory effort, No retractions, No use of accessory muscles and clear to auscultation bilaterally AUSCULTATION: clear to auscultation bilaterally Cardio: COMMON NORMALS: no JVD, regular rate, regular rhythm and No murmurs present (Cardio) RATE: regular rate RHYTHM: regular rhythm GI: AUSCULTATION: Yes normoactive bowel sounds PALPATION: Yes Tenderness to palpation present (GI) (Diffuse abdominal tenderness), No Guarding due to palpation present (GI) and Yes Hepatomegaly present : COMMON NORMALS: Yes no CVA tenderness BLADDER/KIDNEY EXAM: Yes no CVA tenderness Back/Pelvis: COMMON NORMALS: no CVA tenderness Extremity: COMMON NORMALS: normal to inspection, capillary refill normal, no clubbing, cyanosis or edema, no calf tenderness and no pedal edema Neuro: SENSORIUM/ORIENTATION: Yes oriented to person, Yes oriented to place and Yes oriented to time Skin: COMMON NORMALS: no rashes or lesions noted GENERAL SKIN EXAM: no rashes or lesions noted Course Vital Signs: Vital signs: Vital Signs Temperature 97.8 F 07/18/21 11:46 Pulse Rate 72 07/18/21 11:46 Respiratory Rate 16 07/18/21 11:46 Blood Pressure 147/81 07/18/21 11:46 Pulse Oximetry 95 07/18/21 11:46 MDM - Nausea/Vomiting/Diarrhea Medical Decision Making Patient was due for dialysis today as acute hyperkalemia. Do not believe it is safe to allow him to go home. His abdominal pain is improved. He is recurrently presenting with nausea vomiting abdominal pain becoming more often since the pain clinic physician he had been seeing retired and he is not have a replacement. We did have radiology do a paracentesis which improved his symptoms along with medication for abdominal pain and nausea. Unfortunately however he is going to require dialysis because of his hyperkalemia he was initially treated calcium chloride and sodium bicarb discussed with nephrology make him an observation patient with plan for dialysis to relieve his hyperkalemia and likely discharge shortly after. Medical Records I reviewed the patient's medical records. Lab Data I reviewed the patient's lab results. : 07/18/21 04:52 07/18/21 04:52 Radiology Impressions Chest X-Ray 07/17/21 12:10 IMPRESSION: Overall improvement in the appearance of the chest as above with interval development of atelectasis in the left lower lung. Paracentesis Ultrasound 07/17/21 12:11 IMPRESSION: Uncomplicated ultrasound-guided paracentesis. Removal of 5600 cc Laboratory Results WBC 4.3 10^3/uL (4.0-10.0) 07/17/21 12:05 RBC 3.63 10^6/uL (4.1-5.3) L 07/17/21 12:05 Hgb 10.3 g/dL (11.7-16.6) L 07/17/21 12:05 Hct 33.6 % (42.0-52.0) L 07/17/21 12:05 MCV 92.6 fl (80-94) 07/17/21 12:05 MCH 28.4 pg (28.0-34.0) 07/17/21 12:05 MCHC 30.7 g/dL (30.0-36.0) 07/17/21 12:05 RDW 22.2 % (12.1-15.1) H 07/17/21 12:05 Plt Count 205 10^3/cmm (130-400) 07/17/21 12:05 MPV 10.2 fL (7.4-10.4) 07/17/21 12:05 Neut % (Auto) 64.7 % 07/17/21 12:05 Lymph % (Auto) 6.3 % 07/17/21 12:05 [place] % (Auto) 11.9 % 07/17/21 12:05 Eos % (Auto) 16.4 % 07/17/21 12:05 Baso % (Auto) 0.5 % 07/17/21 12:05 Neut # (Auto) 2.76 10^3/uL (1.8-7.7) 07/17/21 12:05 Lymph # (Auto) 0.3 10^3/uL (0.8-4.8) L 07/17/21 12:05 [place] # (Auto) 0.5 10^3/uL (0.2-0.9) 07/17/21 12:05 Eos # (Auto) 0.7 10^3/uL (0.0-0.8) 07/17/21 12:05 Baso # (Auto) 0.0 10^3/uL (0.0-0.1) 07/17/21 12:05 Nucleated RBC % (auto) 0 % 07/17/21 12:05 Nucleated RBCs # 0.0 /100WBC 07/17/21 12:05 Sodium 129 mmol/L (136-145) L 07/17/21 12:05 Potassium 5.8 mmol/L (3.5-5.1) H 07/17/21 12:05 Chloride 91 mmol/L (98-107) L 07/17/21 12:05 Carbon Dioxide 25 mmol/L (22-29) 07/17/21 12:05 Anion Gap 18.8 (5-19) 07/17/21 12:05 BUN 44 mg/dL (6-20) H 07/17/21 12:05 Creatinine 7.4 mg/dL (0.7-1.2) H* 07/17/21 12:05 GFR Calculation 8.3 mL/min (90-130) L 07/17/21 12:05 Glucose 76 mg/dL (65-115) 07/17/21 12:05 Calculated Osmolality 278 mOsm/kg (285-295) L 07/17/21 12:05 Calcium 9.6 mg/dL (8.5-10.5) 07/17/21 12:05 Phosphorus 6.1 mg/dL (2.5-4.5) H 07/17/21 12:05 Magnesium 2.0 mg/dL (1.7-2.3) 07/17/21 12:05 Total Bilirubin 0.6 mg/dL (0.15-1.2) 07/17/21 12:05 AST 21 U/L (0-40) 07/17/21 12:05 ALT 105 U/L (0-41) H 07/17/21 12:05 Alkaline Phosphatase 130 IU/L (40-130) 07/17/21 12:05 Total Protein 7.0 g/dL (6.6-8.7) 07/17/21 12:05 Albumin 3.6 g/dL (3.5-5.2) 07/17/21 12:05 Globulin 3.4 g/dL (1.3-4.6) 07/17/21 12:05 Discharge Plan Discharge Admit Provider: Carroll Hercules Condition: Stable Discharge Orders: Discharge Order (Routine); Ordered 07/18/21 Ordered By: Carroll Hercules Discharge Activity: Resume usual activity Coding Level of Care Code ED Stitcher Special Machine for Chg Roxi
--- NOTE | 2021-07-17 15:11 | P.HP_ITS ---
Providers/Chief Complaint Primary Care Provider: Mal Junior Chief Complaint: n/v, abdominal pain History of Present Illness Mal Gibbs 40 year old male with past medical history of end-stage renal disease dialysis dependent Thursday, hypertension, diastolic congestive heart failure, COPD, was brought in with chief complaint of shortness of breath and generalized abdominal pain, nausea and vomitting .He deny any fever, cough,headache,sick contact. Upon arrival in the ER he was worked up for above mention complain. Pertinent imaging studies: ULT Abdomen for Ascites evaluation:5.6 Ls ascitic fluid removed ( Dark Yellow ) Xray Chest : increased opacity in the left lower lung which presumably re presents interval atelectasis. Pertinent labs: WBC 4.3 , H&H : 10.3/33 , PLT : 205 , serum sodium 129? , serum potassium 6.7 , BUN/ serum creatinine: 46 /7.8, Total bilirubin 1.8 , AST 2325 , ALT 1271 , Review of Systems General: Reports: 10 or more systems reviewed and unremarkable except in HPI and below Const: Denies: fever(s), chills, body aches, change in appetite or diaphoresis Card: Denies: palpitations or leg pain with exertion Resp: Denies: productive cough, wheezing or pain on inspiration GI: Denies: diarrhea or constipation : Denies: flank pain or difficulty urinating Musc: Denies: back pain, extremity pain or extremity swelling Neuro: Denies: headache(s), difficulty walking or confusion Medications/Allergies Home Medications Medication Instructions Recorded Confirmed Last Taken Type umeclidinium 62.5 mcg/actuation 1 inh INHALATION DAILY 05/03/20 07/17/21 05/16/21 History blister powder for inhalation (Incruse Ellipta) pantoprazole 40 mg tablet,delayed 40 mg PO DAILY 02/25/21 07/17/21 07/17/21 History release fluticasone propionate 50 2 spray INTRANASAL DAILY PRN 05/27/21 07/17/21 Unknown History mcg/actuation nasal spray,suspension albuterol sulfate 90 mcg/actuation 2 puff INHALATION QID PRN #2 g 06/04/21 07/17/21 Unknown Rx aerosol inhaler (ProAir HFA) rifaximin 550 mg tablet (Xifaxan) 550 mg PO BID 06/10/21 07/17/21 07/17/21 History amlodipine 10 mg tablet 10 mg PO DAILY 30 Days #30 tab 07/16/21 07/17/21 07/17/21 Rx carvedilol 25 mg tablet 50 mg PO BID 30 Days #60 tab 07/16/21 07/17/21 07/17/21 Rx hydralazine 50 mg tablet 50 mg PO Q6H 30 Days #120 tab 07/16/21 07/17/21 07/17/21 Rx isosorbide mononitrate 60 mg 60 mg PO Q12H 30 Days #60 tab 07/16/21 07/17/21 07/17/21 Rx tablet,extended release 24 hr minoxidil 10 mg tablet 10 mg PO BID@0900,2100 30 Days #60 07/16/21 07/17/21 07/17/21 Rx tab Allergies Allergy/AdvReac Type Severity Reaction Status Date / Time nifedipine Allergy ALGY-Swell Verified 07/17/21 13:12 Lip/Tongue/Throat PFSH Acute PFSH: Medical History (Updated 07/17/21 @ 22:19 by Carroll Hercules MD) Abdominal ascites Abdominal distention Abnormality of rib determined by X-ray Acute diastolic CHF (congestive heart failure) Anasarca Anemia Anxiety with depression Arteriovenous fistula for hemodialysis in place, secondary Chronic abdominal pain Congestive heart failure COPD (chronic obstructive pulmonary disease) COVID 05/25 Current smoker Degenerative disc disease, lumbar End-stage renal disease on hemodialysis ESRD (end stage renal disease) Gross hematuria Hemoptysis Hepatomegaly Hyperkalemia Hypertension Hypertensive emergency Ileus PHT (pulmonary hypertension) Pulmonary embolism 09/21 Inconclusive for very tiny peripheral LEFT lower lobe pulmonary artery sub segmental emboli versus poor opacification. Right heart failure with reduced right ventricular function Smoking addiction Transaminitis Urethral stricture Surgical History H/O hand surgery Amputation right 2&3 fingers 2017 History of adenoidectomy Family History Father No problems noted. Other Hypertension Social History Smoking and tobacco status: current every day smoker Alcohol intake: never Marital status: Number of children: 3 Current occupational status: disabled History of recent travel: No Vitals/I&O/Wt Last Vital Signs Temp 98 F 07/17/21 11:52 Pulse 76 07/17/21 13:16 Resp 22 H 07/17/21 13:16 BP 150/99 07/17/21 13:16 Pulse Ox 95 07/17/21 13:16 Weight last 48 hrs Weight 79.379 kg Physical Exam Const: COMMON NORMALS: patient oriented x3 HENMT: COMMON NORMALS: normocephalic, atraumatic, hearing grossly normal bilaterally and external ears normal HEAD & SCALP: normocephalic and atraumatic EXTERNAL EAR: Yes external ears normal Eye: COMMON NORMALS: no scleral icterus GENERAL EYE: appearance normal, both eyes and all related structures Chest: COMMONS NORMALS: normal inspection of the chest and normal palpation of entire chest wall CHEST: Yes Symmetrical chest wall rise Resp: COMMON NORMALS: normal respiratory effort, No retractions, No use of acc essory muscles and clear to auscultation bilaterally EFFORT & INSPECTION: Yes symmetric chest movement AUSCULTATION: clear to auscultation bilaterally Cardio: COMMON NORMALS: regular rate, regular rhythm, S1 normal heart sound present, S2 normal heart sound present, No gallops present (Cardio), No murmurs present (Cardio), No rub (Cardio) and Peripheral pulses 2+ throughout RATE: regular rate RHYTHM: regular rhythm HEART SOUNDS: S1 normal heart sound present and S2 normal heart sound present PERIPHERAL PULSES: Peripheral pulses 2+ throughout GI: COMMON NORMALS: Normal to inspection, nondistended, normoactive bowel sounds present, Soft to palpation, non-tender, No hepatosplenomegaly present and no masses AUSCULTATION: Yes normoactive bowel sounds PALPATION: Yes Soft to palpation and Yes No hepatosplenomegaly present RECTAL EXAM: Yes deferred Extremity: COMMON NORMALS: no clubbing, cyanosis or edema and no pedal edema Neuro: COMMON NORMALS: patient oriented x3 Data : 07/17/21 12:05 07/17/21 15:25 A&P Assessment and plan (1) End stage renal disease: Status: Acute (2) Hypertension: Status: Acute (3) PHT (pulmonary hypertension): Status: Acute (4) (HFpEF) heart failure with preserved ejection fraction: Status: Acute (5) Ascites: Status: Acute (6) COPD (chronic obstructive pulmonary disease): Status: Acute (7) Hyperkalemia: Status: Acute (8) Chronic abdominal pain: Status: Acute Plan 40 year old male with past medical history of end-stage renal disease dialysis dependent Thursday, hypertension, diastolic congestive heart failure, COPD, was brought in with chief complaint of shortness of breath and generalized abdominal pain, nausea and vomiting. Assesment #Hyperkalemia #Chronic Abdominal Pain 2/2 Ascites #Ascites #ESRD D/D MWF #HTN #COPD #HFpEF Plan : Continue with [facility] H/D , Nephrology on board S/P Paracentesis with removal of 5.6 Ls Continue Home Anti HTN medications DuO Nebs Heparin 5000 sc q12 h Full code Attestations Medical Necessity Statement*: Patient needs to be in hospital for management of Hyperkalemia, routine H/D,Anticipated LOS Greater then 2 midnights. Time Spent in Patient Care: Greater than 35 minutes (>than 50% of time spent in counselling and/or direct pt care on unit) . Coding Level of Care Code Acute Prison Warden for Cristi Fwd Diagnoses End stage renal disease N18.6 Hypertension I10 PHT (pulmonary hypertension) I27.20 (HFpEF) heart failure with preserved ejection fraction I50.30 Ascites R18.8 COPD (chronic obstructive pulmonary disease) J44.9 Hyperkalemia E87.5 Chronic abdominal pain R10.9; G89.29
[2021-07-17] MEDS: sodium bicarbonate 8.4% 1 mEq/mL 50mL Syr 100 MEQ IVP (15:58)
[2021-07-17] MEDS: calcium chloride 10% Syr 10 mL 1 GM IVP (15:58)
[2021-07-17 16:08] LABS: Anion Gap 19.7 (5-19); Blood Urea Nitrogen 46 mg/dL (6-20); Calcium 9.4 mg/dL (8.5-10.5); Carbon Dioxide 23 mmol/L (22-29); Chloride 93 mmol/L (98-107); Glomerular Filtration Rate 7.8 mL/min (90-130); Glucose 65 mg/dL (65-115); Osmolality Calculated 278 mOsm/kg (285-295); Sodium 129 mmol/L (136-145)
[2021-07-17 16:16] LABS: Potassium 6.7 mmol/L (3.5-5.1)
--- NOTE | 2021-07-17 17:01 | PM.CONSULT ---
Providers/Reason For Consult Consulting Physician/Specialty*: Nephro Reason for Consult*: ESRD mgmt Attending Physician: Carroll Hercules MD Primary Care Provider: Mal Junior History of Present Illness History of Present Illness Mr. Gibbs is well-known to our team. He was recently discharged. He now comes back to the emergency room with abdominal pain and vomiting. Noted to have edema, noted to have a high potassium. Due to have dialysis today. Medications/Allergies Home Medications Medication Instructions Recorded Confirmed Last Taken Type umeclidinium 62.5 mcg/actuation 1 inh INHALATION DAILY 05/03/20 07/17/21 05/16/21 History blister powder for inhalation (Incruse Ellipta) pantoprazole 40 mg tablet,delayed 40 mg PO DAILY 02/25/21 07/17/21 07/17/21 History release fluticasone propionate 50 2 spray INTRANASAL DAILY PRN 05/27/21 07/17/21 Unknown History mcg/actuation nasal spray,suspension albuterol sulfate 90 mcg/actuation 2 puff INHALATION QID PRN #2 g 06/04/21 07/17/21 Unknown Rx aerosol inhaler (ProAir HFA) rifaximin 550 mg tablet (Xifaxan) 550 mg PO BID 06/10/21 07/17/21 07/17/21 History amlodipine 10 mg tablet 10 mg PO DAILY 30 Days #30 tab 07/16/21 07/17/21 07/17/21 Rx carvedilol 25 mg tablet 50 mg PO BID 30 Days #60 tab 07/16/21 07/17/21 07/17/21 Rx hydralazine 50 mg tablet 50 mg PO Q6H 30 Days #120 tab 07/16/21 07/17/21 07/17/21 Rx isosorbide mononitrate 60 mg 60 mg PO Q12H 30 Days #60 tab 07/16/21 07/17/21 07/17/21 Rx tablet,extended release 24 hr minoxidil 10 mg tablet 10 mg PO BID@0900,2100 30 Days #60 07/16/21 07/17/21 07/17/21 Rx tab Allergies Allergy/AdvReac Type Severity Reaction Status Date / Time nifedipine Allergy ALGY-Swell Verified 07/17/21 13:12 Lip/Tongue/Throat PFSH Acute PFSH: Medical History Abdominal ascites Abdominal distention Abnormality of rib determined by X-ray Acute diastolic CHF (congestive heart failure) Anasarca Anemia Anxiety with depression Arteriovenous fistula for hemodialysis in place, secondary Chronic abdominal pain Congestive heart failure COPD (chronic obstructive pulmonary disease) COVID 05/25 Current smoker Degenerative disc disease, lumbar End-stage renal disease on hemodialysis ESRD (end stage renal disease) Gross hematuria Hemoptysis Hepatomegaly Hyperkalemia Hypertension Hypertensive emergency Ileus PHT (pulmonary hypertension) Pulmonary embolism 09/21 Inconclusive for very tiny peripheral LEFT lower lobe pulmonary artery sub segmental emboli versus poor opacification. Right heart failure with reduced right ventricular function Smoking addiction Transaminitis Urethral stricture Surgical History H/O hand surgery Amputation right 2&3 fingers 2017 History of adenoidectomy Family History Father No problems noted. Other Hypertension Social History Smoking and tobacco status: current every day smoker Alcohol intake: never Marital status: Number of children: 3 Current occupational status: disabled History of recent travel: No Vitals/I&O/Wt Last Vital Signs Temp 98 F 07/17/21 11:52 Pulse 71 07/17/21 16:19 Resp 15 07/17/21 16:19 BP 147/76 07/17/21 16:19 Pulse Ox 98 07/17/21 16:19 Weight last 48 hrs Weight 79.379 kg Physical Exam Narrative: Constitutional: Awake, comfortable HEENT: Wet mucosa, no jvp, non icteric Lungs: Bilaterally clear without discernible wheeze, rales in all lung zones CVS: S1 S2, no murmurs Abdo: Soft, BS ok Ext 4: 2-3+ edema, peripheral perfusion with no cyanosis Neurological: Grossly non-focal Data : 07/17/21 12:05 07/17/21 15:25 A&P Assessment and plan (1) End stage renal disease: Status: Acute Plan 1. ESRD We will plan for dialysis this afternoon, 2K ultrafiltration 3 L Dose medication for GFR less than 15 2. Hypertension Blood pressure remains elevated, ultrafiltration with dialysis 3. Chemistry HyperK, will come down with HD, follow up levels in the am 4. Chronic dialysis issues To be managed as outpatient including titration of phosphate binders, secondary hyperparathyroidism etc. Continue home medication including Renvela Thank you for consultation, as always it is a pleasure to follow these cases with you Caden Salazar MD Nephrology [phone] Patient seen and examined via telemedicine, with the assistance of the bedside RN > 25 min spent in evaluation and mgmt of patient Coding Level of Care Code Acute Unit Reactor Operator for Chg Fwd Diagnoses End stage renal disease N18.6
[2021-07-17] MEDS: hyDRALAzine 50 mg Tablet PO (21:09)
[2021-07-17] MEDS: carvedilol 25 mg Tablet 50 MG PO (21:09)
[2021-07-17] MEDS: minoxidil 10 mg Tablet PO (21:22)
[2021-07-18] VITALS: BP 203/100; PULSE 89; RESP 19; TEMP 37.3; O2SAT 94
[2021-07-18 00:30] VITALS: BP 172/100
[2021-07-18] MEDS: trazodone 50 mg Tablet 25 MG PO (00:47)
[2021-07-18] MEDS: heparin 5,000 unit/mL INJ 1 mL 5000 UNIT SUBCUT (03:08)
[2021-07-18] MEDS: hyDRALAzine 50 mg Tablet PO ×2 (03:08→09:54)
[2021-07-18] MEDS: isosorbide mononitrate ER 60 mg Tablet PO (03:08)
[2021-07-18 04:00] VITALS: BP 151/79; PULSE 80; RESP 19; TEMP 37; O2SAT 94
[2021-07-18 05:02] LABS: Basophils % 0.9 %; Eosinophils # 0.5 10^3/uL (0.0-0.8); Eosinophils % 14.5 %; Hematocrit 32.2 % (42.0-52.0); Hemoglobin 10.1 g/dL (11.7-16.6); Lymphocytes # 0.4 10^3/uL (0.8-4.8); Lymphocytes % 12.7 %; Mean Corpuscular HGB Conc 31.4 g/dL (30.0-36.0); Mean Corpuscular Hemoglobin 28.9 pg (28.0-34.0); Mean Corpuscular Volume 92.3 fl (80-94); Mean Platelet Volume 9.5 fL (7.4-10.4); Monocytes # 0.6 10^3/uL (0.2-0.9); Monocytes % 18.2 %; Neutrophils # 1.73 10^3/uL (1.8-7.7); Neutrophils % 53.4 %; Nucleated Red Blood Cells % 0 %; Platelet Count 185 10^3/cmm (130-400); Red Blood Count 3.49 10^6/uL (4.1-5.3); Red Cell Distribution Width 22.1 % (12.1-15.1); White Blood Count 3.2 10^3/uL (4.0-10.0)
[2021-07-18 05:28] LABS: Alanine Aminotransferase 78 U/L (0-41); Albumin Level 3.2 g/dL (3.5-5.2); Alkaline Phosphatase 149 IU/L (40-130); Anion Gap 15.5 (5-19); Aspartate Amino Transferase 15 U/L (0-40); Blood Urea Nitrogen 30 mg/dL (6-20); Calcium 8.8 mg/dL (8.5-10.5); Carbon Dioxide 27 mmol/L (22-29); Chloride 96 mmol/L (98-107); Globulin 2.7 g/dL (1.3-4.6); Glomerular Filtration Rate 11.2 mL/min (90-130); Glucose 77 mg/dL (65-115); Osmolality Calculated 281 mOsm/kg (285-295); Potassium 5.5 mmol/L (3.5-5.1); Sodium 133 mmol/L (136-145); Total Bilirubin 0.5 mg/dL (0.15-1.2); Total Protein 5.9 g/dL (6.6-8.7)
[2021-07-18 05:29] LABS: Phosphorus 4.8 mg/dL (2.5-4.5)
[2021-07-18 08:00] VITALS: BP 167/84; PULSE 82; RESP 16; TEMP 36.5
[2021-07-18 08:08] VITALS: PULSE 85; RESP 18; O2SAT 92
[2021-07-18] MEDS: pantoprazole DR 40 mg Tablet PO (09:54)
[2021-07-18] MEDS: amlodipine 10 mg Tablet PO (09:54)
[2021-07-18] MEDS: carvedilol 25 mg Tablet 50 MG PO (09:54)
[2021-07-18] MEDS: minoxidil 10 mg Tablet PO (10:02)
--- NOTE | 2021-07-18 10:25 | P.PN_ITS ---
Subjective Subjective: No new issues with Mr. Gibbs today. He feels comfortable. His pain is controlled. Dialysis went well yesterday. Minimal global edema, his abdomen is still distended with ascites. Hemodynamics reviewed and remained stable. No other acute issues. Vitals/I&O/Wt Last Vital Signs Temp 97.7 F 07/18/21 08:00 Pulse 85 07/18/21 08:08 Resp 18 07/18/21 08:08 BP 167/84 07/18/21 08:00 Pulse Ox 92 07/18/21 08:08 07/17/21 07/18/21 07/18/21 22:59 06:59 14:59 Intake Total 1940 / 1940 480 / 2420 600 / 600 Output Total 3300 / 3300 Balance -1360 / -1360 480 / -880 600 / 600 Weight last 48 hrs Weight 79.333 kg Weight 80.5 kg Weight 79.379 kg Physical Exam Narrative: Constitutional: Awake, comfortable HEENT: Wet mucosa, no jvp, non icteric Lungs: Bilaterally clear without discernible wheeze, rales in all lung zones CVS: S1 S2, no murmurs Abdo: Soft, BS ok Ext 4: 2-3+ edema, peripheral perfusion with no cyanosis Neurological: Grossly non-focal Data : 07/18/21 04:52 07/18/21 04:52 A&P Assessment and plan (1) End stage renal disease: Status: Acute Plan 1. ESRD We will plan for dialysis tomorrow if he remains in house, 2K ultrafiltration 3 L Dose medication for GFR less than 15 2. Hypertension Blood pressure remains elevated this morning, drop dry weight with HD over next few sessions 3. Chemistry HyperK, Kayexalate this morning, dialysis tomorrow, low K diet 4. Chronic dialysis issues To be managed as outpatient including titration of phosphate binders, secondary hyperparathyroidism etc. Continue home medication including Renvela - ok for DC from my perspective Thank you for consultation, as always it is a pleasure to follow these cases with you Caden Salazar MD Nephrology [phone] Patient seen and examined via telemedicine, with the assistance of the bedside RN > 25 min spent in evaluation and mgmt of patient Attestations 2 Medical Necessity Statement*: Eval for ESRD Coding Level of Care Code Acute Ground Support Equipment Fitter for Chg Fwd Diagnoses End stage renal disease N18.6
--- NOTE | 2021-07-18 10:42 | PC.CHAP ---
Pastoral Care Encounter/Spiritual Assessment Type of Contact [] Declined tablet making machine operator helper visit [] Patient/Family/Request visit [] Outpatient visit [x] Follow-up visit [] Physician referral [] Code/Alert [] Routine visit [] Staff referral [] Actively dying [] Patient sleeping [] Family support [] [] Out of room [] Palliative care [] [] Receiving care in room [] Pre-surgical visit [] Trauma [] Long length of stay [] ICU visit [] Other: Relational/Emotional Strength [] Patient feels connected with others/family/visitors/staff [] Distress [] Loneliness/isolation [] Abandonment Spirituality of Patient [] Person of Ct [] Attends Sikhism of their Ct [] Believes in Prayer [] Reads Bible or Muslim materials [] There are Spiritual issues to be addressed Specification Manager Interventions [] Prayer [] Active listening [] Non-anxious presence [] Spiritual/emotional support [] Crisis/trauma care [] Spiritual counseling [] Bereavement support [] Provided bereavement packet [] Provided Bible/devotional materials [] Provided toy/stuffed animal, coloring book to patient or family member [] Provided Communion [] Anointing/[place] [] Salvation [] Completed spiritual assessment [] Other: Impact on Illness or Injury [] Angry [] Fearful [] Anxious [] Often cries [] Exhaustion [] Unable to work [] Unable to attend caodaism [] Unable to walk/stand [] Unable to read [] Unable to drive [] Unable to eat/drink [] Unable to sleep [] Unable to be with family [] Patient intubated [] Other: Summary Follow-up visit Time spent with patient 5 mins
[2021-07-18 11:46] VITALS: BP 147/81; PULSE 72; RESP 16; TEMP 36.6; O2SAT 95
--- NOTE | 2021-07-18 12:37 | PM.DCS ---
Discharge Providers Date of Admission: 07/17/21 14:22 Date of Discharge: July 18, 2021 Attending Provider at Admission: Carroll Hercules MD Attending Provider at Discharge: Carroll Hercules MD Primary Care Provider: Mal Junior Diagnoses at Discharge Discharge Diagnosis (1) End stage renal disease: Status: Acute Reason for Visit Reason for Visit: n/v, abdominal pain Hospital Course Hospital Course HPI: Mal Gibbs 40 year old male with past medical history of end-stage renal disease dialysis dependent Thursday, hypertension, diastolic congestive heart failure, COPD, was brought in with chief complaint of shortness of breath and generalized abdominal pain, nausea and vomitting .He deny any fever, cough,headache,sick contact. Upon arrival in the ER he was worked up for above mention complain. Pertinent imaging studies: ULT Abdomen for Ascites evaluation:5.6 Ls ascitic fluid removed ( Dark Yellow ) Xray Chest : increased opacity in the left lower lung which presumably represents interval atelectasis Pertinent labs: WBC 4.3? , H&H : 10.3/33? , PLT : 205? , serum sodium 129? , serum potassium 6.7 , BUN/ serum creatinine: 46 /7.8, Total bilirubin 1.8 , AST 2325 , ALT 1271 , Patient was admitted for the management of chronic abdominal pain nausea and vomiting likely secondary to ascites Status post paracentesis with removal of 5.6 LS yellow-colored ascitic fluid. Patient was also managed for hyperkalemia underwent routine hemodialysis with resolution of hyperkalemia. Patient was continued to be managed for his other comorbid conditions: For his #HFpEF: He was compensated and euvolemic, for his COPD not exacerbation he was continued on Duo nebs as needed, he was continued on his home home antihypertensive medications for his resistant hypertension.Not on any diuretics since he do not make urine. Patient responded well to above medical management at the time of discharge denied any abdominal pain nausea vomiting, denied any shortness of breath. Patient will continue with routine hemodialysis as an outpatient. He was discharged in stable condition to home Physical Exam Const: COMMON NORMALS: patient oriented x3 HENMT: COMMON NORMALS: normocephalic, atraumatic, hearing grossly normal bilaterally and external ears normal HEAD & SCALP: normocephalic and atraumatic EXTERNAL EAR: Yes external ears normal Eye: COMMON NORMALS: no scleral icterus GENERAL EYE: appearance normal, both eyes and all related structures Chest: COMMONS NORMALS: normal inspection of the chest and normal palpation of entire chest wall CHEST: Yes Symmetrical chest wall rise Resp: COMMON NORMALS: normal respiratory effort, No retractions, No use of accessory muscles and clear to auscultation bilaterally EFFORT & INSPECTION: Yes symmetric chest movement AUSCULTATION: clear to auscultation bilaterally Cardio: COMMON NORMALS: regular rate, regular rhythm, S1 normal heart sound present, S2 normal heart sound present, No gallops present (Cardio), No murmurs present (Cardio), No rub (Cardio) and Peripheral pulses 2+ throughout RATE: regular rate RHYTHM: regular rhythm HEART SOUNDS: S1 normal heart sound present and S2 normal heart sound present PERIPHERAL PULSES: Peripheral pulses 2+ throughout GI: COMMON NORMALS: Normal to inspection, nondistended, normoactive bowel sounds present, Soft to palpation, non-tender, No hepatosplenomegaly present and no masses AUSCULTATION: Yes normoactive bowel sounds PALPATION: Yes Soft to palpation and Yes No hepatosplenomegaly present RECTAL EXAM: Yes deferred Extremity: COMMON NORMALS: no clubbing, cyanosis or edema and no pedal edema Neuro: COMMON NORMALS: patient oriented x3 Discharge Data Studies Completed and Pending Completed Studies During Hospitalization Category Date Time Status XR chest 1V portable [id number] Stat Exams 07/17/21 12:10 Completed US paracentesis abdomen [US paracentesis abd w [id number]] Ultrasound 07/17/21 12:11 Completed Stat Pending at discharge Category Date Time Status Complete Blood Count w/Auto AM LABS Lab 07/19/21 04:00 Ordered Complete Blood Count w/Auto AM LABS Lab 07/20/21 04:00 Ordered Phosphorus AM LABS Lab 07/19/21 04:00 Ordered Phosphorus AM LABS Lab 07/20/21 04:00 Ordered Radiology Impressions Chest X-Ray 07/17/21 12:10 IMPRESSION: Overall improvement in the appearance of the chest as above with interval development of atelectasis in the left lower lung. Paracentesis Ultrasound 07/17/21 12:11 IMPRESSION: Uncomplicated ultrasound-guided paracentesis. Removal of 5600 cc Laboratory Results WBC 3.2 10^3/uL (4.0-10.0) L 07/18/21 04:52 RBC 3.49 10^6/uL (4.1-5.3) L 07/18/21 04:52 Hgb 10.1 g/dL (11.7-16.6) L 07/18/21 04:52 Hct 32.2 % (42.0-52.0) L 07/18/21 04:52 MCV 92.3 fl (80-94) 07/18/21 04:52 MCH 28.9 pg (28.0-34.0) 07/18/21 04:52 MCHC 31.4 g/dL (30.0-36.0) 07/18/21 04:52 RDW 22.1 % (12.1-15.1) H 07/18/21 04:52 Plt Count 185 10^3/cmm (130-400) 07/18/21 04:52 MPV 9.5 fL (7.4-10.4) 07/18/21 04:52 Neut % (Auto) 53.4 % 07/18/21 04:52 Lymph % (Auto) 12.7 % 07/18/21 04:52 [place] % (Auto) 18.2 % 07/18/21 04:52 Eos % (Auto) 14.5 % 07/18/21 04:52 Baso % (Auto) 0.9 % 07/18/21 04:52 Neut # (Auto) 1.73 10^3/uL (1.8-7.7) L 07/18/21 04:52 Lymph # (Auto) 0.4 10^3/uL (0.8-4.8) L 07/18/21 04:52 [place] # (Auto) 0.6 10^3/uL (0.2-0.9) 07/18/21 04:52 Eos # (Auto) 0.5 10^3/uL (0.0-0.8) 07/18/21 04:52 Baso # (Auto) 0.0 10^3/uL (0.0-0.1) 07/18/21 04:52 Nucleated RBC % (auto) 0 % 07/18/21 04:52 Nucleated RBCs # 0.0 /100WBC 07/18/21 04:52 Sodium 133 mmol/L (136-145) L 07/18/21 04:52 Potassium 5.5 mmol/L (3.5-5.1) H 07/18/21 04:52 Chloride 96 mmol/L (98-107) L 07/18/21 04:52 Carbon Dioxide 27 mmol/L (22-29) 07/18/21 04:52 Anion Gap 15.5 (5-19) 07/18/21 04:52 BUN 30 mg/dL (6-20) H 07/18/21 04:52 Creatinine 5.7 mg/dL (0.7-1.2) H* 07/18/21 04:52 GFR Calculation 11.2 mL/min (90-130) L 07/18/21 04:52 Glucose 77 mg/dL (65-115) 07/18/21 04:52 Calculated Osmolality 281 mOsm/kg (285-295) L 07/18/21 04:52 Calcium 8.8 mg/dL (8.5-10.5) 07/18/21 04:52 Phosphorus 4.8 mg/dL (2.5-4.5) H 07/18/21 04:52 Magnesium 2.0 mg/dL (1.7-2.3) 07/17/21 12:05 Total Bilirubin 0.5 mg/dL (0.15-1.2) 07/18/21 04:52 AST 15 U/L (0-40) 07/18/21 04:52 ALT 78 U/L (0-41) H 07/18/21 04:52 Alkaline Phosphatase 149 IU/L (40-130) H 07/18/21 04:52 Total Protein 5.9 g/dL (6.6-8.7) L 07/18/21 04:52 Albumin 3.2 g/dL (3.5-5.2) L 07/18/21 04:52 Globulin 2.7 g/dL (1.3-4.6) 07/18/21 04:52 Vitals Last Vital Signs Temp 97.8 F 07/18/21 11:46 Pulse 72 07/18/21 11:46 Resp 16 07/18/21 11:46 BP 147/81 07/18/21 11:46 Pulse Ox 95 07/18/21 11:46 Discharge Plan Discharge Patient Disposition: Home Condition: Stable Prescriptions: Continued minoxidil 10 mg Tablet 10 mg PO BID@0900,2100 30 Days Qty: 60 0RF hydralazine 50 mg Tablet 50 mg PO Q6H 30 Days Qty: 120 0RF carvedilol 25 mg tablet 50 mg PO BID 30 Days Qty: 60 0RF isosorbide mononitrate 60 mg tablet extended release 24 hr 60 mg PO Q12H 30 Days Qty: 60 0RF amlodipine 10 mg tablet 10 mg PO DAILY 30 Days Qty: 30 0RF Incruse Ellipta 62.5 mcg/actuation blister with device 1 inh INHALATION DAILY 0RF pantoprazole 40 mg tablet,delayed release (DR/EC) 40 mg PO DAILY 0RF fluticasone propionate 50 mcg/actuation spray,suspension 2 spray INTRANASAL DAILY PRN (Reason: Allergy Symptoms) 0RF albuterol sulfate [ProAir HFA] 90 mcg/actuation Hfa Aerosol Inhaler 2 puff INHALATION QID PRN (Reason: Shortness Of Breath) Qty: 2 4RF Xifaxan 550 mg tablet 550 mg PO BID 0RF Discharge Orders: Discharge Order (Routine); Ordered 07/18/21 Ordered By: Carroll Hercules Referrals: Mal Junior [Primary Care Provider] - Discharge Activity: Resume usual activity Patient Instructions: Opioid Safety Discharge Attestations Time Spent in Discharge Care*: greater than 30 min Specific Discharge Activities: educating patient, educating and/or supporting family/caregiver, discussing with pcp/other providers, discussing with classification case manager/social workers/dc planners, documenting/other paperwork and evaluating patient/reviewing data Status at Discharge: Cognitive status at discharge: cognitively intact, Behavioral status at discharge: cooperative, Quality Metrics Clinical Quality Measures [ No reported AMI, CVA or VTE this stay] Coding Level of Care Code Acute Chg FW DC note Diagnoses End stage renal disease N18.6
[2021-07-18] MEDS: sodium polystyrene sulfonate 15 gm/60 mL Btl 30 GM PO (13:42)
--- NOTE | 2021-07-26 08:21 | PC.SOCIAL ---
[facility] pharmacy left message about Clonidine script. Called and talked to Batsheva at [facility]. We did not have this listed however was told pt previously presribed Clonidine patches from Dr Umana and since then recently prescribed Clonidine 0.2mg tab three times daily by Dr Cruz. Verifeid these can be scored. Called Dr Platt and order given to use the 0.2mg tabs and half these take at current dose prescribed 01. BID. Notified patient that he does not need to roll picker additional meds but to make the change listed above to this medication. He verbalized understanding and had no questions. Batsheva entered note at pharmacy as well of change.
== END 2021-07-18 13:00 | disposition home or self-care (01) | DRG 640 ==
LOC: ER 14:14 → MEDSURG 15:42
PROVIDERS: Admitting Provider Internal Medicine; Emergency Provider Family Medicine; PCP Family Medicine; Visit Provider Internal Medicine
DX: E87.5 Hyperkalemia (principal); N18.6 End stage renal disease; R18.8 Other ascites; I13.2 Hypertensive heart and chronic kidney disease with heart failure and with stage 5 chronic kidney disease, or end stage renal disease; I50.30 Unspecified diastolic (congestive) heart failure; K72.10 Chronic hepatic failure without coma; D63.1 Anemia in chronic kidney disease; Z99.2 Dependence on renal dialysis; J44.9 Chronic obstructive pulmonary disease, unspecified; Z86.16 Personal history of COVID-19; F17.210 Nicotine dependence, cigarettes, uncomplicated; M51.36 Other intervertebral disc degeneration, lumbar region; I27.20 Pulmonary hypertension, unspecified; Z79.51 Long term (current) use of inhaled steroids
CPT/HCPCS: 36415; 36416; 36592; 36600; 49083; 71045; 80048; 80053; 80061; 80202; 80307; 82310; 82728; 82803; 82962; 83036; 83540; 83550; 83605; 83735; 83880; 83970; 84100; 84443; 84484; 85025; 85347; 85610; 85730; 86706; 86803; 87040; 87340; 87635; 87804; 90935; 93005; 93308; 93454; 94660; 94664; 94760; 96372; 96374; 96375; 96376; 99285; C1725; C1769; C1874; C1887; C1894; C9113; C9600; J0360; J1170; J1630; J1644; J2060; J2250; J2270; J2405; J2501; J2543; J3010; J3370; J3490; J7030; J7050; Q0163; Q3014; Q4081; Q9967

== ENCOUNTER → 2021-08-02 09:30 | Outpatient (BNVA) | payer MEDICARE, MEDICAID, SELFPAY | PROVIDERS: PCP Family Medicine; Visit Provider Nurse Practitioner Family | DX: Z09 Encounter for follow-up examination after completed treatment for conditions other than malignant neoplasm (principal); F17.200 Nicotine dependence, unspecified, uncomplicated; I25.10 Atherosclerotic heart disease of native coronary artery without angina pectoris; I10 Essential (primary) hypertension | CPT/HCPCS: 99214 ==

== ENCOUNTER 2021-08-03 04:07 | Emergency (ER) | payer MEDICARE, MEDICAID, SELFPAY ==
[2021-08-03 04:27] VITALS: BP 163/80; PULSE 96; RESP 24; TEMP 36.6; O2SAT 93; BMI 22.9
[2021-08-03 05:08] LABS: Basophils # 0.1 10^3/uL (0.0-0.1); Basophils % 1.7 %; Eosinophils # 0.6 10^3/uL (0.0-0.8); Eosinophils % 13.6 %; Hematocrit 29.2 % (42.0-52.0); Hemoglobin 9.2 g/dL (11.7-16.6); Lymphocytes # 0.7 10^3/uL (0.8-4.8); Lymphocytes % 17.8 %; Mean Corpuscular HGB Conc 31.5 g/dL (30.0-36.0); Mean Corpuscular Hemoglobin 29.1 pg (28.0-34.0); Mean Corpuscular Volume 92.4 fl (80-94); Mean Platelet Volume 9.7 fL (7.4-10.4); Monocytes # 0.5 10^3/uL (0.2-0.9); Monocytes % 12.3 %; Neutrophils % 54.4 %; Nucleated Red Blood Cells % 0 %; Platelet Count 200 10^3/cmm (130-400); Red Blood Count 3.16 10^6/uL (4.1-5.3); Red Cell Distribution Width 18.5 % (12.1-15.1); White Blood Count 4.1 10^3/uL (4.0-10.0)
[2021-08-03 05:16] LABS: Alanine Aminotransferase 8 U/L (0-41); Albumin Level 3.6 g/dL (3.5-5.2); Alkaline Phosphatase 134 IU/L (40-130); Anion Gap 14.2 (5-19); Aspartate Amino Transferase 14 U/L (0-40); Blood Urea Nitrogen 22 mg/dL (6-20); Calcium 9.8 mg/dL (8.5-10.5); Carbon Dioxide 27 mmol/L (22-29); Chloride 98 mmol/L (98-107); Glomerular Filtration Rate 13.7 mL/min (90-130); Glucose 93 mg/dL (65-115); Osmolality Calculated 283 mOsm/kg (285-295); Potassium 4.2 mmol/L (3.5-5.1); Sodium 135 mmol/L (136-145); Total Bilirubin 0.6 mg/dL (0.15-1.2); Total Protein 6.6 g/dL (6.6-8.7)
--- NOTE | 2021-08-03 05:22 | XRR_ITS ---
PROCEDURE INFORMATION: Exam: XR Chest Exam date and time: 08/03/2021 5:26 AM Age: 40 years old Clinical indication: Shortness of breath; Prior surgery; Surgery type: Coronary stent. ; Patient HX: C/O SOB. TECHNIQUE: Imaging protocol: XR of the chest. Views: 1 view. COMPARISON: CR (CHEST, ) 08/01/2021 10:30 PM FINDINGS: Lungs: There are some increased interstitial opacity seen predominately within the right hemithorax, findings that could represent a right-sided pneumonitis. Pleural spaces: Unremarkable. No pleural effusion. No pneumothorax. Heart/Mediastinum: Unremarkable. No cardiomegaly. Bones/joints: Unremarkable. XR/XR chest 1V portable [id number] IMPRESSION: Subtle increased interstitial opacity seen in the right hemithorax, findings that could represent a right-sided pneumonitis.
[2021-08-03 05:41] LABS: Magnesium 1.8 mg/dL (1.7-2.3); Phosphorus 4.8 mg/dL (2.5-4.5)
[2021-08-03 06:27] VITALS: RESP 20
[2021-08-03] MEDS: morphine 4 mg/mL SDV 1 mL IVP ×2 (06:27→09:33)
[2021-08-03] MEDS: ondansetron 2 mg/ML SDV 2 mL 4 MG IVP (06:27)
--- NOTE | 2021-08-03 06:35 | ED_ITS ---
Documented by User: Jose Ward DO 08/04/21 05:00 HPI - SOB/Dyspnea General: Chief Complaint: Shortness of Breath/Dyspnea Stated Complaint: stomach/pain, sob Time Seen by Provider: 08/03/21 05:35 Source: patient History of Present Illness: HPI Narrative: 40-year-old male with a history of end-stage renal disease on dialysis and recurrent abdominal ascites presents with shortness of breath that belly pressure and discomfort. He notes that he was last dialyzed yesterday, and that he had paracentesis 2 weeks ago here. Since that time, fluid is continued to accumulate in his belly such that it makes him short of breath. He denies any fever, significant cough, or other edema. MD elicited complaint: shortness of breath Onset (ago): hour(s) Context: other Timing: progressively worsening Severity: moderate Exacerbating factors: lying flat and exertion Relieving factors: oxygen Known history of: congestive heart failure and other Associated symptoms: Reports abdominal pain, chest pain, dizziness and nausea; Deny chest congestion, cough, fever(s) or vomiting Treatment prior to arrival: bronchodilator Review of Systems Const: Denies: fever(s) Card: Reports: chest pain Resp: Reports: dyspnea; Denies: productive cough, non-productive cough or chest congestion GI: Reports: abdominal pain and nausea; Denies: vomiting Neuro: Reports: dizziness PENDING SALE TO [facility] ED PFSH: Medical History (HFpEF) heart failure with preserved ejection fraction Abdominal ascites Abdominal distention Abnormality of rib determined by X-ray Acute diastolic CHF (congestive heart failure) Anasarca Anemia Anxiety with depression Arteriovenous fistula for hemodialysis in place, secondary Ascites Atherosclerosis of coronary artery Chronic abdominal pain Congestive heart failure COPD (chronic obstructive pulmonary disease) COPD (chronic obstructive pulmonary disease) COVID 05/25 Current smoker Degenerative disc disease, lumbar End-stage renal disease on hemodialysis Gross hematuria Hemoptysis Hepatomegaly Hyperkalemia Hypertension Hypertensive emergency Ileus PHT (pulmonary hypertension) Pulmonary embolism 09/21 Inconclusive for very tiny peripheral LEFT lower lobe pulmonary artery sub segmental emboli versus poor opacification. Right heart failure with reduced right ventricular function Smoking addiction Transaminitis Urethral stricture Surgical History H/O hand surgery Amputation right 2&3 fingers 2017 History of adenoidectomy Stented coronary artery Family History Father No problems noted. Other Hypertension Social History Smoking and tobacco status: current every day smoker Alcohol intake: never Marital status: Number of children: 3 Current occupational status: disabled History of recent travel: No Physical Exam Const: GENERAL APPEARANCE: cooperative and frail appearing NUTRITIONAL APPEARANCE: cachectic HENMT: COMMON NORMALS: atraumatic and Normal external nose present HEAD & SCALP: atraumatic NOSE: Normal external nose present Eye: COMMON NORMALS: Equal, round and reactive pupils present PUPIL: Yes Equal, round and reactive pupils present Chest: COMMONS NORMALS: normal inspection of the chest Resp: EFFORT & INSPECTION: Yes tachypneic and Yes labored AUSCULTATION: rhonchi Cardio: COMMON NORMALS: regular rate and regular rhythm RATE: regular rate RHYTHM: regular rhythm GI: COMMON NORMALS: Soft to palpation INSPECTION: Yes abdominal distension PALPATION: Yes Soft to palpation and Yes Tenderness to palpation present (GI) Neuro: BUCK COMA SCALE: document GCS findings Hubbell coma scale eye opening: Spontaneous Buck coma scale verbal response: Orientated Hubbell coma scale motor response: Obey commands Buck coma scale total score: 15 Course Vital Signs: Vital signs: Vital Signs Temperature 97.9 F 08/03/21 04:27 Pulse Rate 95 08/03/21 11:36 Respiratory Rate 14 08/03/21 11:36 Blood Pressure 163/80 08/03/21 11:36 Pulse Oximetry 94 08/03/21 11:36 MDM - SOB/Dyspnea Medical Decision Making Hemoglobin is 9.2 which is stable. Creatinine is 4.8. Electrolytes are normal. The patient does have abdominal distention, and he is tachypneic. He is on 2 L currently satting 96%. We have no radiology availability for guided paracentesis this weekend. Lab Data : 08/03/21 04:42 08/03/21 04:42 Labs/Radiology: Radiology Impressions Chest X-Ray 08/03/21 05:22 IMPRESSION: Subtle increased interstitial opacity seen in the right hemithorax, findings that could represent a right-sided pneumonitis. Paracentesis Ultrasound 08/03/21 07:05 IMPRESSION: Uncomplicated paracentesis yielding 1600 ml of peritoneal fluid. Laboratory Results WBC 4.1 10^3/uL (4.0-10.0) 08/03/21 04:42 RBC 3.16 10^6/uL (4.1-5.3) L 08/03/21 04:42 Hgb 9.2 g/dL (11.7-16.6) L 08/03/21 04:42 Hct 29.2 % (42.0-52.0) L 08/03/21 04:42 MCV 92.4 fl (80-94) 08/03/21 04:42 MCH 29.1 pg (28.0-34.0) 08/03/21 04:42 MCHC 31.5 g/dL (30.0-36.0) 08/03/21 04:42 RDW 18.5 % (12.1-15.1) H 08/03/21 04:42 Plt Count 200 10^3/cmm (130-400) 08/03/21 04:42 MPV 9.7 fL (7.4-10.4) 08/03/21 04:42 Neut % (Auto) 54.4 % 08/03/21 04:42 Lymph % (Auto) 17.8 % 08/03/21 04:42 [place] % (Auto) 12.3 % 08/03/21 04:42 Eos % (Auto) 13.6 % 08/03/21 04:42 Baso % (Auto) 1.7 % 08/03/21 04:42 Neut # (Auto) 2.20 10^3/uL (1.8-7.7) 08/03/21 04:42 Lymph # (Auto) 0.7 10^3/uL (0.8-4.8) L 08/03/21 04:42 [place] # (Auto) 0.5 10^3/uL (0.2-0.9) 08/03/21 04:42 Eos # (Auto) 0.6 10^3/uL (0.0-0.8) 08/03/21 04:42 Baso # (Auto) 0.1 10^3/uL (0.0-0.1) 08/03/21 04:42 Nucleated RBC % (auto) 0 % 08/03/21 04:42 Nucleated RBCs # 0.0 /100WBC 08/03/21 04:42 PT 15.00 SECONDS (12.1-14.9) H 08/03/21 04:42 INR 1.15 (0.8-1.2) 08/03/21 04:42 APTT 38.9 SECONDS (23.9-36.7) H 08/03/21 04:42 Sodium 135 mmol/L (136-145) L 08/03/21 04:42 Potassium 4.2 mmol/L (3.5-5.1) 08/03/21 04:42 Chloride 98 mmol/L (98-107) 08/03/21 04:42 Carbon Dioxide 27 mmol/L (22-29) 08/03/21 04:42 Anion Gap 14.2 (5-19) 08/03/21 04:42 BUN 22 mg/dL (6-20) H 08/03/21 04:42 Creatinine 4.8 mg/dL (0.7-1.2) H 08/03/21 04:42 GFR Calculation 13.7 mL/min (90-130) L 08/03/21 04:42 Glucose 93 mg/dL (65-115) 08/03/21 04:42 Calculated Osmolality 283 mOsm/kg (285-295) L 08/03/21 04:42 Calcium 9.8 mg/dL (8.5-10.5) 08/03/21 04:42 Phosphorus 4.8 mg/dL (2.5-4.5) H 08/03/21 04:42 Magnesium 1.8 mg/dL (1.7-2.3) 08/03/21 04:42 Total Bilirubin 0.6 mg/dL (0.15-1.2) 08/03/21 04:42 AST 14 U/L (0-40) 08/03/21 04:42 ALT 8 U/L (0-41) 08/03/21 04:42 Alkaline Phosphatase 134 IU/L (40-130) H 08/03/21 04:42 Total Protein 6.6 g/dL (6.6-8.7) 08/03/21 04:42 Albumin 3.6 g/dL (3.5-5.2) 08/03/21 04:42 Globulin 3.0 g/dL (1.3-4.6) 08/03/21 04:42 Discharge Plan Discharge Patient Disposition: Home Clinical Impression: Abdominal ascites, ESRD on dialysis Condition: Stable Prescriptions: No Action isosorbide mononitrate 60 mg tablet extended release 24 hr 60 mg PO Q12H 30 Days Qty: 60 0RF amlodipine 10 mg tablet 10 mg PO DAILY 30 Days Qty: 30 0RF Incruse Ellipta 62.5 mcg/actuation blister with device 1 inh INHALATION DAILY 0RF pantoprazole 40 mg tablet,delayed release (DR/EC) 40 mg PO DAILY 0RF albuterol sulfate [ProAir HFA] 90 mcg/actuation Hfa Aerosol Inhaler 2 puff INHALATION QID PRN (Reason: Shortness Of Breath) Qty: 2 4RF Xifaxan 550 mg tablet 550 mg PO BID 0RF aspirin 81 mg Tablet,Delayed Release (Dr/Ec) 81 mg PO DAILY Qty: 30 0RF atorvastatin 40 mg Tablet 40 mg PO BEDTIME Qty: 30 0RF clonidine HCl 0.1 mg Tablet 0.1 mg PO BID Qty: 60 0RF clopidogrel 75 mg Tablet 75 mg PO DAILY Qty: 30 0RF carvedilol 25 mg tablet 25 mg PO BID 30 Days Qty: 60 0RF minoxidil 10 mg Tablet 5 mg PO BID@0900,2100 30 Days Qty: 60 0RF hydralazine 50 mg Tablet 50 mg PO Q8H 30 Days Qty: 120 0RF Discharge Orders: Discharge ED (Routine); Ordered 08/03/21 Ordered By: Pato Rivera Referrals: Mal Junior [Primary Care Provider] - Discharge Diet: Usual diet Patient Instructions: Ascites (ED), Paracentesis (DC) Activity Restrictions/Additional Instructions: Attend dialysis at your regularly scheduled visit. Keep area clean and dry with bandage covered for 48 hours, then you may shower. Do not soak. Return for worsening shortness of breath, pain, low blood pressure, any other concerning symptoms. Coding Level of Care Code ED Rope Cutter for Chg Fwd Documented by User: Pato Rivera DO 08/03/21 11:18 HPI - SOB/Dyspnea General: Chief Complaint: Shortness of Breath/Dyspnea Stated Complaint: stomach/pain, sob Time Seen by Provider: 08/03/21 05:35 PFSH ED PFSH: Medical History (HFpEF) heart failure with preserved ejection fraction Abdominal ascites Abdominal distention Abnormality of rib determined by X-ray Acute diastolic CHF (congestive heart failure) Anasarca Anemia Anxiety with depression Arteriovenous fistula for hemodialysis in place, secondary Ascites Atherosclerosis of coronary artery Chronic abdominal pain Congestive heart failure COPD (chronic obstructive pulmonary disease) COPD (chronic obstructive pulmonary disease) COVID 05/25 Current smoker Degenerative disc disease, lumbar End-stage renal disease on hemodialysis Gross hematuria Hemoptysis Hepatomegaly Hyperkalemia Hypertension Hypertensive emergency Ileus PHT (pulmonary hypertension) Pulmonary embolism 09/21 Inconclusive for very tiny peripheral LEFT lower lobe pulmonary artery sub segmental emboli versus poor opacification. Right heart failure with reduced right ventricular function Smoking addiction Transaminitis Urethral stricture Surgical History H/O hand surgery Amputation right 2&3 fingers 2017 History of adenoidectomy Stented coronary artery Family History Father No problems noted. Other Hypertension Social History Smoking and tobacco status: current every day smoker Alcohol intake: never Marital status: Number of children: 3 Current occupational status: disabled History of recent travel: No Course Vital Signs: Vital signs: Vital Signs Temperature 97.9 F 08/03/21 04:27 Pulse Rate 95 08/03/21 11:36 Respiratory Rate 14 08/03/21 11:36 Blood Pressure 163/80 08/03/21 11:36 Pulse Oximetry 94 08/03/21 11:36 MDM - SOB/Dyspnea Medical Decision Making Hemoglobin is 9.2 which is stable. Creatinine is 4.8. Electrolytes are normal. The patient does have abdominal distention, and he is tachypneic. He is on 2 L currently satting 96%. We have no radiology availability for guided paracent esis this weekend. Ultrasound paracentesis ordered. He does have a moderate amount of fluid discus sed with Dr. Peter she came into the paracentesis after which patient is doing well discharge home with follow-up with primary care and continued scheduled dialysis. Medical Records I reviewed the patient's medical records. Lab Data I reviewed the patient's lab results. : 08/03/21 04:42 08/03/21 04:42 Labs/Radiology: Radiology Impressions Chest X-Ray 08/03/21 05:22 IMPRESSION: Subtle increased interstitial opacity seen in the right hemithorax, findings that could represent a right-sided pneumonitis. Paracentesis Ultrasound 08/03/21 07:05 IMPRESSION: Uncomplicated paracentesis yielding 1600 ml of peritoneal fluid. Laboratory Results WBC 4.1 10^3/uL (4.0-10.0) 08/03/21 04:42 RBC 3.16 10^6/uL (4.1-5.3) L 08/03/21 04:42 Hgb 9.2 g/dL (11.7-16.6) L 08/03/21 04:42 Hct 29.2 % (42.0-52.0) L 08/03/21 04:42 MCV 92.4 fl (80-94) 08/03/21 04:42 MCH 29.1 pg (28.0-34.0) 08/03/21 04:42 MCHC 31.5 g/dL (30.0-36.0) 08/03/21 04:42 RDW 18.5 % (12.1-15.1) H 08/03/21 04:42 Plt Count 200 10^3/cmm (130-400) 08/03/21 04:42 MPV 9.7 fL (7.4-10.4) 08/03/21 04:42 Neut % (Auto) 54.4 % 08/03/21 04:42 Lymph % (Auto) 17.8 % 08/03/21 04:42 [place] % (Auto) 12.3 % 08/03/21 04:42 Eos % (Auto) 13.6 % 08/03/21 04:42 Baso % (Auto) 1.7 % 08/03/21 04:42 Neut # (Auto) 2.20 10^3/uL (1.8-7.7) 08/03/21 04:42 Lymph # (Auto) 0.7 10^3/uL (0.8-4.8) L 08/03/21 04:42 [place] # (Auto) 0.5 10^3/uL (0.2-0.9) 08/03/21 04:42 Eos # (Auto) 0.6 10^3/uL (0.0-0.8) 08/03/21 04:42 Baso # (Auto) 0.1 10^3/uL (0.0-0.1) 08/03/21 04:42 Nucleated RBC % (auto) 0 % 08/03/21 04:42 Nucleated RBCs # 0.0 /100WBC 08/03/21 04:42 PT 15.00 SECONDS (12.1-14.9) H 08/03/21 04:42 INR 1.15 (0.8-1.2) 08/03/21 04:42 APTT 38.9 SECONDS (23.9-36.7) H 08/03/21 04:42 Sodium 135 mmol/L (136-145) L 08/03/21 04:42 Potassium 4.2 mmol/L (3.5-5.1) 08/03/21 04:42 Chloride 98 mmol/L (98-107) 08/03/21 04:42 Carbon Dioxide 27 mmol/L (22-29) 08/03/21 04:42 Anion Gap 14.2 (5-19) 08/03/21 04:42 BUN 22 mg/dL (6-20) H 08/03/21 04:42 Creatinine 4.8 mg/dL (0.7-1.2) H 08/03/21 04:42 GFR Calculation 13.7 mL/min (90-130) L 08/03/21 04:42 Glucose 93 mg/dL (65-115) 08/03/21 04:42 Calculated Osmolality 283 mOsm/kg (285-295) L 08/03/21 04:42 Calcium 9.8 mg/dL (8.5-10.5) 08/03/21 04:42 Phosphorus 4.8 mg/dL (2.5-4.5) H 08/03/21 04:42 Magnesium 1.8 mg/dL (1.7-2.3) 08/03/21 04:42 Total Bilirubin 0.6 mg/dL (0.15-1.2) 08/03/21 04:42 AST 14 U/L (0-40) 08/03/21 04:42 ALT 8 U/L (0-41) 08/03/21 04:42 Alkaline Phosphatase 134 IU/L (40-130) H 08/03/21 04:42 Total Protein 6.6 g/dL (6.6-8.7) 08/03/21 04:42 Albumin 3.6 g/dL (3.5-5.2) 08/03/21 04:42 Globulin 3.0 g/dL (1.3-4.6) 08/03/21 04:42 Discharge Plan Discharge Patient Disposition: Home Clinical Impression: Abdominal ascites, ESRD on dialysis Condition: Stable Prescriptions: No Action isosorbide mononitrate 60 mg tablet extended release 24 hr 60 mg PO Q12H 30 Days Qty: 60 0RF amlodipine 10 mg tablet 10 mg PO DAILY 30 Days Qty: 30 0RF Incruse Ellipta 62.5 mcg/actuation blister with device 1 inh INHALATION DAILY 0RF pantoprazole 40 mg tablet,delayed release (DR/EC) 40 mg PO DAILY 0RF albuterol sulfate [ProAir HFA] 90 mcg/actuation Hfa Aerosol Inhaler 2 puff INHALATION QID PRN (Reason: Shortness Of Breath) Qty: 2 4RF Xifaxan 550 mg tablet 550 mg PO BID 0RF aspirin 81 mg Tablet,Delayed Release (Dr/Ec) 81 mg PO DAILY Qty: 30 0RF atorvastatin 40 mg Tablet 40 mg PO BEDTIME Qty: 30 0RF clonidine HCl 0.1 mg Tablet 0.1 mg PO BID Qty: 60 0RF clopidogrel 75 mg Tablet 75 mg PO DAILY Qty: 30 0RF carvedilol 25 mg tablet 25 mg PO BID 30 Days Qty: 60 0RF minoxidil 10 mg Tablet 5 mg PO BID@0900,2100 30 Days Qty: 60 0RF hydralazine 50 mg Tablet 50 mg PO Q8H 30 Days Qty: 120 0RF Discharge Orders: Discharge ED (Routine); Ordered 04/02/22 Ordered By: Pato Rivera Referrals: Mal Junior [Primary Care Provider] - Discharge Diet: Usual diet Patient Instructions: Ascites (ED), Paracentesis (DC) Activity Restrictions/Additional Instructions: Attend dialysis at your regularly scheduled visit. Keep area clean and dry with bandage covered for 48 hours, then you may shower. Do not soak. Return for worsening shortness of breath, pain, low blood pressure, any other concerning symptoms. Coding Level of Care Code ED Rope Cutter for Cristi Diane
--- NOTE | 2021-08-03 07:05 | US_ITS ---
WS: [id number] ULTRASOUND-GUIDED THERAPEUTIC PARACENTESIS Procedure, risks, and complications have been explained to the patient. Consent is obtained. Utilizing aseptic technique and 1% buffered lidocaine, a small dermatome was made through which a 5 F rench Yueh catheter was inserted. Approximately 1600 ml of clear peritoneal fluid was obtained witho ut difficulty. No complications encountered. US/US paracentesis [id number] IMPRESSION: Uncomplicated paracentesis yielding 1600 ml of peritoneal fluid.
[2021-08-03 07:06] VITALS: PULSE 93; RESP 14; O2SAT 94
--- NOTE | 2021-08-03 08:10 | PC.NURSE ---
Pt reporting abdominal cramping. Pt states that it feels like an elephant stepping on my belly . Pt states it has been occuring off and on all night. Provider notified.
[2021-08-03 08:28] LABS: INR 1.15 (0.8-1.2); Partial Thromboplastin Time 38.9 SECONDS (23.9-36.7)
[2021-08-03] MEDS: LORazepam 2 mg/mL INJ 1 mL IVP (09:29)
[2021-08-03 09:33] VITALS: RESP 22
[2021-08-03 11:36] VITALS: BP 163/80; PULSE 95; RESP 14; O2SAT 94
== END 2021-08-03 11:38 | disposition home or self-care (01) ==
PROVIDERS: Emergency Medicine; Emergency Provider Family Medicine; PCP Family Medicine
DX: R18.8 Other ascites (principal); I13.2 Hypertensive heart and chronic kidney disease with heart failure and with stage 5 chronic kidney disease, or end stage renal disease; N18.6 End stage renal disease; I50.32 Chronic diastolic (congestive) heart failure; I50.810 Right heart failure, unspecified; Z99.2 Dependence on renal dialysis; Z86.16 Personal history of COVID-19; F17.200 Nicotine dependence, unspecified, uncomplicated; Z79.02 Long term (current) use of antithrombotics/antiplatelets; Z79.82 Long term (current) use of aspirin
CPT/HCPCS: 49083; 71045; 80053; 83735; 84100; 85025; 85610; 85730; 96374; 96375; 96376; 99284; J2060; J2270; J2405

== ENCOUNTER 2021-08-03 14:46 | Inpatient (IN) | payer MEDICARE, MEDICAID, SELFPAY ==
[2021-08-03] VITALS (24 sets, daily range): BP systolic 138–218; BP diastolic 66–135; PULSE 70–106; RESP 10–28; TEMP 36.6–37; O2SAT 91–97; BMI 29.5
--- NOTE | 2021-08-03 14:47 | W.ED.CHESTPA ---
HPI - Chest Pain General: Chief Complaint: Chest Pain Stated Complaint: CHEST PAIN; SOB Time Seen by Provider: 08/03/21 14:47 Limitations: altered mental status and other (Mental status change, marked respiratory distress) History of Present Illness: Mr. Gibbs is a 40-year-old gentleman with complex past medical history including end-stage renal disease, CAD, history of NSTEMI, abdominal ascites with ED visit prior evening and paracentesis performed a few hours prior to returning to the emergency department who presents to the emergency department due to shortness of breath. Upon initial arrival the patient has marked respiratory distress and is requiring 15 L of oxygen via nonrebreather, history significantly limited secondary to this. Unable to obtain course, onset, quality, severity, exacerbating, or alleviating factors. Review of Systems General: Reports: ROS unobtainable due to mental status PFSH ED PFSH: Medical History (Updated 08/10/21 @ 00:01 by ) (HFpEF) heart failure with preserved ejection fraction Abdominal ascites Abdominal distention Abnormality of rib determined by X-ray Acute diastolic CHF (congestive heart failure) Anasarca Anemia Anxiety with depression Arteriovenous fistula for hemodialysis in place, secondary Ascites Atherosclerosis of coronary artery Chronic abdominal pain Congestive heart failure COPD (chronic obstructive pulmonary disease) COPD (chronic obstructive pulmonary disease) COVID 05/25 Current smoker Degenerative disc disease, lumbar End-stage renal disease on hemodialysis Gross hematuria Hemoptysis Hepatomegaly Hyperkalemia Hypertension Hypertensive emergency Ileus PHT (pulmonary hypertension) Pulmonary embolism 09/21 Inconclusive for very tiny peripheral LEFT lower lobe pulmonary artery sub segmental emboli versus poor opacification. Right heart failure with reduced right ventricular function Smoking addiction Transaminitis Urethral stricture Surgical History H/O hand surgery Amputation right 2&3 fingers 2017 History of adenoidectomy Stented coronary artery Family History Father No problems noted. Other Hypertension Social History Smoking and tobacco status: never smoked Alcohol intake: never Marital status: Number of children: 3 Current occupational status: disabled History of recent travel: No Physical Exam Const: GENERAL APPEARANCE: in distress and ill appearing ORIENTATION/CONSCIOUSNESS: Yes Other orientation findings (Somnolent) HENMT: COMMON NORMALS: normocephalic and atraumatic HEAD & SCALP: normocephalic and atraumatic THROAT: posterior oropharynx normal Eye: COMMON NORMALS: conjunctivae normal CONJUNCTIVA: Yes conjunctivae normal SCLERA: sclerae normal Neck/C-Spine: COMMON NORMALS: supple GENERAL: Yes trachea midline Resp: EFFORT & INSPECTION: Yes tachypneic, Yes respiratory distress and Yes decreased respiratory effort AUSCULTATION: crackles (For bilateral) Cardio: COMMON NORMALS: regular rhythm RATE: tachycardic RHYTHM: regular rhythm GI: COMMON NORMALS: Soft to palpation PALPATION: Yes Soft to palpation and No Tenderness to palpation present (GI) PERCUSSION: normal to percussion Extremity: GENERAL: Yes normal exam except as noted and No edema Neuro: COMMON NORMALS: moves all extremities SENSORIUM/ORIENTATION: Yes somnolent Course ED course: - Patient was seen and evaluated by me at bedside - Patient placed on cardiac monitors, IV access obtained - Initial evaluation notable for ill appearance, respiratory distress with mental status change. -ABG with hypercapnia. BiPAP ordered - Labs and xrays personally interpreted by me. EKGs at 1510 and 1703 interpreted by me. Sinus rhythm. Nonspecific ST segment abnormalities and QRS abnormalities. No STEMI. - Labs notable for no leukocytosis, hemoglobin similar to prior. Metabolic panel without acute electrolyte derangement. Troponin elevated though chronic elevation present and delta troponin negative. - Imaging notable for bilateral lower opacities - Upon serial reexamination after treatment the patient was improved with regards to mental status though patient still remains markedly ill (acute on chronic) - Based on patient history, evaluation, and testing as interpreted the most likely cause of the patient's condition is acute hypercapnic respiratory failure of uncertain etiology - The results of ED evaluation were discussed with the patient including plan for admission due to requirement for level of care not available if discharged to prevent significant worsening/deterioration. -Hospitalist service contacted and agreed to admit the patient - Patient was admitted without further deterioration or significant events. Note: Click bubbles or prepopulated cantu in note writing are used for assistance with data collection and billing and are inherently more limited than narrative and other text portions of this note. Please use narrative for additional clinical history and defer to narrative/free test for any case of contradictory information. If information appears in only free text or click bubble it should be considered present or absent as reported. Please contact note assembly instructions writer for clarifications of clinical information or contradictory information. MDM is a brief summary, contradictory or erroneous seeming information should be clarified and full note should be reviewed. Vital Signs: Vital signs: Vital Signs Temperature 97.8 F 08/05/21 07:14 Pulse Rate 88 08/05/21 13:02 Respiratory Rate 14 08/05/21 07:14 Blood Pressure 176/95 08/05/21 13:02 Pulse Oximetry 92 08/05/21 13:02 MDM - Chest Pain Medical Decision Making 40-year-old gentleman with complex past medical history recently discharged after paracentesis presenting with respiratory distress with acute hypoxic and hypercapnic respiratory failure. Possibly related to fluid shifts. Patient placed on BiPAP and admitted for definitive management. Medical Records I reviewed the patient's medical records. Lab Data I reviewed the patient's lab results. : 08/05/21 02:28 08/05/21 02:28 Radiology Impressions Chest X-Ray 08/04/21 07:00 IMPRESSION: 1. Worsening patchy bilateral interstitial opacities suggesting worsening bilateral pneumonia versus pulmonary edema. Laboratory Results WBC 6.3 10^3/uL (4.0-10.0) 08/03/21 14:58 RBC 3.31 10^6/uL (4.1-5.3) L 08/03/21 14:58 Hgb 9.8 g/dL (11.7-16.6) L 08/03/21 14:58 Hct 31.7 % (42.0-52.0) L 08/03/21 14:58 MCV 95.8 fl (80-94) H 08/03/21 14:58 MCH 29.6 pg (28.0-34.0) 08/03/21 14:58 MCHC 30.9 g/dL (30.0-36.0) 08/03/21 14:58 RDW 18.6 % (12.1-15.1) H 08/03/21 14:58 Plt Count 198 10^3/cmm (130-400) 08/03/21 14:58 MPV 9.6 fL (7.4-10.4) 08/03/21 14:58 Neut % (Auto) 60.8 % 08/03/21 14:58 Lymph % (Auto) 15.1 % 08/03/21 14:58 Phillips % (Auto) 9.9 % 08/03/21 14:58 Eos % (Auto) 12.3 % 08/03/21 14:58 Baso % (Auto) 1.4 % 08/03/21 14:58 Neut # (Auto) 3.85 10^3/uL (1.8-7.7) 08/03/21 14:58 Lymph # (Auto) 1.0 10^3/uL (0.8-4.8) 08/03/21 14:58 Phillips # (Auto) 0.6 10^3/uL (0.2-0.9) 08/03/21 14:58 Eos # (Auto) 0.8 10^3/uL (0.0-0.8) 08/03/21 14:58 Baso # (Auto) 0.1 10^3/uL (0.0-0.1) 08/03/21 14:58 Nucleated RBC % (auto) 0 % 08/03/21 14:58 Nucleated RBCs # 0.0 /100WBC 08/03/21 14:58 Specimen Type Arterial 08/03/21 14:57 Sample Site Brachial, right 08/03/21 14:57 ABG pH 7.34 (7.35-7.45) L 08/03/21 14:57 ABG pCO2 57.6 mmHg (35-45) H 08/03/21 14:57 ABG pO2 80.2 mmHg (80.0-100.0) 08/03/21 14:57 ABG HCO3 30.7 mmol/L (22-26) H 08/03/21 14:57 ABG Base Excess 3.8 mmol/L (-2.0-2.0) H 08/03/21 14:57 Alexei Test Pos 08/03/21 14:57 Hematocrit 31.0 % (42-52) L 08/03/21 14:57 O2 Delivery Device Nrb 08/03/21 14:57 O2 Liters/Min 15.0 % 08/03/21 14:57 FiO2 100.0 % 08/03/21 14:57 Cellular Plastics Cutter ID Monro 08/03/21 14:57 Sodium 136 mmol/L (136-145) 08/03/21 14:58 Potassium 4.4 mmol/L (3.5-5.1) 08/03/21 14:58 Chloride 98 mmol/L (98-107) 08/03/21 14:58 Carbon Dioxide 26 mmol/L (22-29) 08/03/21 14:58 Anion Gap 16.4 (5-19) 08/03/21 14:58 BUN 16 mg/dL (6-20) 08/03/21 14:58 Creatinine 1.2 mg/dL (0.7-1.2) 08/03/21 14:58 GFR Calculation 67.8 mL/min (90-130) L 08/03/21 14:58 Glucose 116 mg/dL (65-115) H 08/03/21 14:58 Calculated Osmolality 284 mOsm/kg (285-295) L 08/03/21 14:58 Calcium 9.4 mg/dL (8.5-10.5) 08/03/21 14:58 Total Bilirubin 0.4 mg/dL (0.15-1.2) 08/03/21 14:58 AST 30 U/L (0-40) 08/03/21 14:58 ALT 32 U/L (0-41) 08/03/21 14:58 Alkaline Phosphatase 83 IU/L (40-130) 08/03/21 14:58 Troponin T Baseline 128 ng/L (0-15) H* 08/03/21 14:58 Troponin T 120 Minute 116.0 ng/L (0-15) H 08/03/21 16:39 Delta Troponin T -12.0 ABS# (0-10) L 08/03/21 16:39 NT-Pro-B Natriuret Pep 619 pg/mL (0-125) H 08/03/21 14:58 Total Protein 6.2 g/dL (6.6-8.7) L 08/03/21 14:58 Albumin 3.9 g/dL (3.5-5.2) 08/03/21 14:58 Globulin 2.3 g/dL (1.3-4.6) 08/03/21 14:58 Lipase 13 U/L (13-60) 08/03/21 14:58 Hep Bs Antigen Non-reactive (Nonreactive) 08/03/21 14:58 Hep Bs Antibody > 1000.0 (11.5-1000) H 08/03/21 14:58 Hepatitis C Antibody Non-reactive (Nonreactive) 08/03/21 14:58 Critical Care Time Critical Care Time: Critical Care Time: Yes Total Critical Care Time: 55 Attestation: Due to a high probability of clinically significant, possibly life threatening deterioration, the patient required my highest level of attention and preparedness to intervene emergently and I personally spent this critical care time directly and personally managing the patient. This critical care time included obtaining a history; examining the patient; pulse oximetry; ordering and review of laboratory and imaging studies; arranging urgent treatment with development of a management plan; evaluation of patient's response to treatment; frequent reassessment; and, discussions with other providers as applicable. It was exclusive of separately billable procedures. Primary system involved is respiratory Discharge Plan Discharge Patient Disposition: Admitted As Inpatient Admit Provider: Tunde Umana Clinical Impression: Acute respiratory failure with hypoxia and hypercarbia, Abdominal ascites, ESRD on dialysis, Pulmonary edema, S/P abdominal paracentesis, Hypertensive emergency Condition: Stable Discharge Diet: Cardiac Discharge Activity: Resume usual activity Coding Level of Care Code ED Wiring Inspector for Cristi Diane
--- NOTE | 2021-08-03 14:49 | XRR_ITS ---
PROCEDURE INFORMATION: Exam: XR Chest Exam date and time: 08/03/2021 2:56 PM Age: 40 years old Clinical indication: Shortness of breath; Additional info: SOB TECHNIQUE: Imaging protocol: XR of the chest. Views: 1 view. COMPARISON: CR (CHEST, ) 08/03/2021 5:26 AM FINDINGS: Lungs: Subtle ill-defined patulous opacities within the lungs, right greater than left. Pleural spaces: Unremarkable. No pleural effusion. No pneumothorax. Heart/Mediastinum: Similar cardiomegaly. Bones/joints: Unremarkable. Bones/joints: Unremarkable. XR/XR chest 1V portable [id number] IMPRESSION: Worsening subtle ill-defined patulous opacities within the lungs, right greater than left. Findings may reflect developing infection or pulmonary edema.
--- NOTE | 2021-08-03 14:50 | ECG_ITS ---
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 Measurements Intervals [place] Rate: 99 P: 43 MD: 205 QRS: 55 QRSD: 112 T: 83 QT: 345 QTc: 445 Interpretive Statements SINUS RHYTHM LEFT ATRIAL ENLARGEMENT [-0.15mV P-WAVE IN V1/V2] MODERATE INTRAVENTRICULAR CONDUCTION DELAY [110+ ms QRS DURATION] MINIMAL ST DEPRESSION [0.025+ mV ST DEPRESSION] Compared to ECG 08/01/2021 22:29:20 Atrial abnormality now present ST (T wave) deviation now present First degree AV block no longer present T-wave abnormality no longer present Possible ischemia no longer present Electronically Signed On 08-04-2021 9:35:37 CDT by Bharathi Markham M.D. [id number]
[2021-08-03 15:09] LABS: Basophils # 0.1 10^3/uL (0.0-0.1); Basophils % 1.4 %; Eosinophils # 0.8 10^3/uL (0.0-0.8); Eosinophils % 12.3 %; Hematocrit 31.7 % (42.0-52.0); Hemoglobin 9.8 g/dL (11.7-16.6); Lymphocytes % 15.1 %; Mean Corpuscular HGB Conc 30.9 g/dL (30.0-36.0); Mean Corpuscular Hemoglobin 29.6 pg (28.0-34.0); Mean Corpuscular Volume 95.8 fl (80-94); Mean Platelet Volume 9.6 fL (7.4-10.4); Monocytes # 0.6 10^3/uL (0.2-0.9); Monocytes % 9.9 %; Neutrophils # 3.85 10^3/uL (1.8-7.7); Neutrophils % 60.8 %; Nucleated Red Blood Cells % 0 %; Platelet Count 198 10^3/cmm (130-400); Red Blood Count 3.31 10^6/uL (4.1-5.3); Red Cell Distribution Width 18.6 % (12.1-15.1); White Blood Count 6.3 10^3/uL (4.0-10.0)
[2021-08-03 15:10] LABS: ABG PCO2 57.6 mmHg (35-45); ABG PH Result 7.34 (7.35-7.45); Base Excess ABG 3.8 mmol/L (-2.0-2.0); Blood Gas Allen Test Pos; Blood Gas Operator Identificat MONRO; Blood Gas Sample Site Brachial, right; Blood Gas Sample Type Arterial; HCO3 ABG 30.7 mmol/L (22-26); Oxygen Device NRB; PO2 ABG 80.2 mmHg (80.0-100.0)
[2021-08-03 16:08] LABS: Alanine Aminotransferase 32 U/L (0-41); Albumin Level 3.9 g/dL (3.5-5.2); Alkaline Phosphatase 83 IU/L (40-130); Anion Gap 16.4 (5-19); Aspartate Amino Transferase 30 U/L (0-40); Blood Urea Nitrogen 16 mg/dL (6-20); Calcium 9.4 mg/dL (8.5-10.5); Carbon Dioxide 26 mmol/L (22-29); Chloride 98 mmol/L (98-107); Globulin 2.3 g/dL (1.3-4.6); Glomerular Filtration Rate 67.8 mL/min (90-130); Glucose 116 mg/dL (65-115); Lipase 13 U/L (13-60); NT Pro B Type Natriuretic Pept 619 pg/mL (0-125); Osmolality Calculated 284 mOsm/kg (285-295); Potassium 4.4 mmol/L (3.5-5.1); Sodium 136 mmol/L (136-145); Total Bilirubin 0.4 mg/dL (0.15-1.2); Total Protein 6.2 g/dL (6.6-8.7)
[2021-08-03 16:11] LABS: Troponin(5th) Baseline 128 ng/L (0-15)
--- NOTE | 2021-08-03 16:50 | ECG_ITS ---
[facility] Test Date: 2021-08-03 Pat Name: Mal Gibbs Department: Room: ICU09 Gender: Male Family Independence Case Manager: : 1980 Requested By: Jerry Stevens Order Number: [id number] Mohini MD: Bharathi Markham M.D. Measurements Intervals [place] Rate: 82 P: DC: QRS: 50 QRSD: 113 T: 107 QT: 404 QTc: 473 Interpretive Statements Sinus rhythm Left atrial abnormality Nonspecific ST wave changes MODERATE INTRAVENTRICULAR CONDUCTION DELAY [110+ ms QRS DURATION] ABNORMAL RHYTHM ECG Compared to ECG 08/03/2021 15:10:45 No change Electronically Signed On 08-04-2021 9:42:19 CDT by Bharathi Markham M.D. [id number]
[2021-08-03 17:34] LABS: ABG PCO2 47.9 mmHg (35-45); ABG PH Result 7.42 (7.35-7.45); Arterial Blood Gas Hematocrit 27.9 % (42-52); Base Excess ABG 5.8 mmol/L (-2.0-2.0); Blood Gas Operator Identificat GD; Blood Gas Sample Site Brachial, right; Blood Gas Sample Type Arterial; HCO3 ABG 31.1 mmol/L (22-26); Oxygen Device BIPAP; PO2 ABG 80.3 mmHg (80.0-100.0)
--- NOTE | 2021-08-03 17:44 | PM.HP ---
Providers/Chief Complaint Admitting Physician: Tunde Umana MD Primary Care Provider: Mal Junior Chief Complaint: CHEST PAIN; SOB History of Present Illness Mal Gibbs is a 40 year old male with past medical history of end-stage renal disease dialysis dependent (M, W, F), history of uncontrolled hypertension with hypertensive cardiovascular disease,? history of heart failure with preserved ejection fraction/RV dysfunction on last echo, COPD, history of noncompliance with recurrent hospitalization for pulmonary edema, hypertensive emergency and missed dialysis. Recent hospitalization for acute respiratory failure pulmonary edema, NSTEMI, requiring stenting to OM1. Who presents [facility] due to increasing shortness of breath and chest pain. Currently patient is alert to person, not to place, not to time, his head is slumped over to the right, he is arousable, but falls asleep, like to get out of the exam he is feeling short of breath and he was having chest pain. pupils equal round reactive to light, no evidence of intercostal subcostal retractions no nasal flaring. He was at [facility] early this morning, with abdominal distention, recurrent ascites, Dr. Peter performed a radiographic paracentesis, 1600 mL removed. Currently patient is hypotensive, blood pressure 160s over 100, breathing 20-30 times a minute, afebrile, normal sinus rhythm, on 45% FiO2, baseline troponin I 28, EKG showing ST depressions in anterior leads, elevated BNP Review of Systems General: Reports: ROS unobtainable due to mental status Medications/Allergies Home Medications Medication Instructions Recorded Confirmed Last Taken Type umeclidinium 62.5 mcg/actuation 1 inh INHALATION DAILY 05/03/20 08/03/21 05/16/21 History blister powder for inhalation (Incruse Ellipta) pantoprazole 40 mg tablet,delayed 40 mg PO DAILY 02/25/21 08/03/21 07/17/21 History release albuterol sulfate 90 mcg/actuation 2 puff INHALATION QID PRN #2 g 06/04/21 08/03/21 Unknown Rx aerosol inhaler (ProAir HFA) rifaximin 550 mg tablet (Xifaxan) 550 mg PO BID 06/10/21 08/03/21 07/17/21 History amlodipine 10 mg tablet 10 mg PO DAILY 30 Days #30 tab 0308/03/21 07/17/21 Rx isosorbide mononitrate 60 mg 60 mg PO Q12H 30 Days #60 tab 07/16/21 08/03/21 07/17/21 Rx tablet,extended release 24 hr aspirin 81 mg tablet,delayed 81 mg PO DAILY #30 tab 07/25/21 08/03/21 Unknown Rx release atorvastatin 40 mg tablet 40 mg PO BEDTIME #30 tab 07/25/21 08/03/21 Unknown Rx carvedilol 25 mg tablet 25 mg PO BID 30 Days #60 tab 07/25/21 08/03/21 07/17/21 Rx clonidine HCl 0.1 mg tablet 0.1 mg PO BID #60 tab 07/25/21 08/03/21 Unknown Rx clopidogrel 75 mg tablet 75 mg PO DAILY #30 tab 07/25/21 08/03/21 Unknown Rx hydralazine 50 mg tablet 50 mg PO Q8H 30 Days #120 tab 07/25/21 08/03/21 07/17/21 Rx minoxidil 10 mg tablet 5 mg PO BID@0900,2100 30 Days #60 07/25/21 08/03/21 07/17/21 Rx tab Allergies Allergy/AdvReac Type Severity Reaction Status Date / Time nifedipine Allergy ALGY-Swell Verified 08/02/21 09:55 Lip/Tongue/Throat PFSH Acute PFSH: Medical History (HFpEF) heart failure with preserved ejection fraction Abdominal ascites Abdominal distention Abnormality of rib determined by X-ray Acute diastolic CHF (congestive heart failure) Anasarca Anemia Anxiety with depression Arteriovenous fistula for hemodialysis in place, secondary Ascites Atherosclerosis of coronary artery Chronic abdominal pain Congestive heart failure COPD (chronic obstructive pulmonary disease) COPD (chronic obstructive pulmonary disease) COVID 05/25 Current smoker Degenerative disc disease, lumbar End-stage renal disease on hemodialysis Gross hematuria Hemoptysis Hepatomegaly Hyperkalemia Hypertension Hypertensive emergency Ileus PHT (pulmonary hypertension) Pulmonary embolism 09/21 Inconclusive for very tiny peripheral LEFT lower lobe pulmonary artery sub segmental emboli versus poor opacification. Right heart failure with reduced right ventricular function Smoking addiction Transaminitis Urethral stricture Surgical History H/O hand surgery Amputation right 2&3 fingers 2017 History of adenoidectomy Stented coronary artery Family History Father No problems noted. Other Hypertension Social History Smoking and tobacco status: current every day smoker Alcohol intake: never Marital status: Number of children: 3 Current occupational status: disabled History of recent travel: No Vitals/I&O/Wt Last Vital Signs Temp 97.9 F 08/03/21 14:46 Pulse 86 08/03/21 16:10 Resp 18 08/03/21 16:10 BP 162/101 08/03/21 16:10 Pulse Ox 96 08/03/21 16:10 Weight last 48 hrs Weight 101.605 kg Physical Exam Const: COMMON NORMALS: no acute distress and alert EXAM LIMITATIONS: altered mental status ORIENTATION/CONSCIOUSNESS: Yes awake; not oriented to person, not oriented to place and not oriented to time HENMT: COMMON NORMALS: normocephalic HEAD & SCALP: normocephalic Eye: COMMON NORMALS: Equal, round and reactive pupils present Neck/C-Spine: COMMON NORMALS: no JVD Lymph: LYMPHATIC: no lymphadenopathy noted Resp: COMMON NORMALS: normal respiratory effort, No retractions and No use of accessory muscles AUSCULTATION: crackles OTHER: Respiratory rate 20-30 Cardio: COMMON NORMALS: no JVD, regular rate, regular rhythm, S1 normal heart sound present and S2 normal heart sound present RATE: regular rate RHYTHM: regular rhythm HEART SOUNDS: S1 normal heart sound present and S2 normal heart sound present GI: COMMON NORMALS: Soft to palpation, non-tender, no masses and no bruits INSPECTION: Yes Abdominal wall edema and Yes abdominal distension AUSCULTATION: Yes normoactive bowel sounds PALPATION: Yes Soft to palpation and Yes No hepatosplenomegaly present Extremity: COMMON NORMALS: capillary refill normal, no calf tenderness and no pedal edema Neuro: OTHER: Alert to person, does not follow neurologic testing, falls back asleep Psych: COMMON NORMALS: mental status grossly normal Data : 08/03/21 14:58 08/03/21 14:58 Micro: Microbiology 08/03/21 16:55 Blood Culture - Preliminary Blood SPECIMEN COLLECTED 08/03/21 16:45 Blood Culture - Preliminary Blood SPECIMEN COLLECTED A&P Assessment and plan (1) ESRD on dialysis: Status: Acute (2) Abdominal ascites: Status: Acute (3) Acute respiratory failure with hypoxia and hypercarbia: Status: Acute (4) Pulmonary edema: Status: Acute (5) Hypertensive emergency: Status: Acute (6) NSTEMI (non-ST elevated myocardial infarction): Status: Acute (7) Encephalopathy: Status: Acute Plan Acute hypoxic respiratory failure -Likely secondary to pulmonary edema -Possible aspiration pneumonia, right lower lobe infiltrate Plan -Admit to ICU -Consulted nephrology for dialysis -Continue BiPAP, monitor respiratory status closely -Full code -Heparin for DVT prophylaxis Acute encephalopathy -Likely secondary respiratory failure, pulmonary edema, aspiration pneumonia, hypertensive encephalopathy Hyper tensive encephalopathy, hypertensive emergency -Start on nitro drip Non-ST elevation AK -With history of ICD, recent history of PCI to OM1 -Continue aspirin, Plavix, statin, Coreg -Start heparin drip -Serial EKGs consider troponins -Telemetry monitoring -Monitor for chest pain End-stage renal disease on dialysis, consult pulmonary for dialysis Hypertension, continue home medications Abdominal ascites, status post paracentesis Attestations Medical Necessity Statement*: Patient requires hospitalization, inpatient, greater than 2 midnights, for hypertensive emergency, NSTEMI, acute hypoxic respiratory failure, fluid overload, hypertensive encephalopathy Critical Care Time: 35 minutes Coding Level of Care Code Acute Corporate Coordinator for Chg Fwd Diagnoses ESRD on dialysis N18.6; Z99.2 Abdominal ascites R18.8 Acute respiratory failure with hypoxia and hypercarbia J96.01; J96.02 Pulmonary edema J81.1 Hypertensive emergency I16.1 NSTEMI (non-ST elevated myocardial infarction) I21.4 Encephalopathy G93.40
[2021-08-03] MEDS: hyDRALAzine 50 mg Tablet PO (18:44)
[2021-08-03] MEDS: piperacillin-tazobactam 3.375 GM in sodium chloride 0.9% (plus) 50 ML IV (18:44)
[2021-08-03] MEDS: cloNIDine 0.1 mg Tablet PO (18:44)
[2021-08-03] MEDS: carvedilol 25 mg Tablet PO (18:44)
[2021-08-03] MEDS: isosorbide mononitrate ER 60 mg Tablet PO (18:44)
[2021-08-03] MEDS: heparin drip 25,000 UNIT/500 ML PREMIX 23 UNIT IV (18:59)
[2021-08-03] MEDS: heparin 5,000 unit/mL INJ 1 mL IV (19:04)
--- NOTE | 2021-08-03 20:01 | P.PN_ITS ---
Subjective Subjective: Thank for consultation, today had the pleasure of reviewing this very pleasant 56-year-old female that I know well from prior hospitalizations. She had her surgery for her left AV fistula last week, she felt unwell on after this procedure and so she did not go to dialysis on Thursday. She now presents with some shortness of breath, some chest discomfort. No acute uremic symptoms. Breathing comfortably on room air. No overt extremity edema. Vitals/I&O/Wt Last Vital Signs Temp 97.9 F 08/03/21 14:46 Pulse 77 08/03/21 18:34 Resp 15 08/03/21 18:30 BP 163/113 08/03/21 18:44 Pulse Ox 95 08/03/21 18:46 Weight last 48 hrs Weight 82.554 kg Weight 101.605 kg Physical Exam Narrative: Constitutional: Drowsy HEENT: Wet mucosa, elevated jvp, non icteric Lungs: Bilaterally clear without discernible wheeze or rales in all lung zones CVS: S1 S2, no murmurs Abdo: Soft, BS ok, distended with ascites Ext 4: 2-3+ edema, peripheral perfusion with no cyanosis Neurological: Grossly non-focal Data : 08/03/21 14:58 08/03/21 14:58 Micro: Microbiology 08/03/21 16:55 Blood Culture - Preliminary Blood SPECIMEN COLLECTED 08/03/21 16:45 Blood Culture - Preliminary Blood SPECIMEN COLLECTED A&P Assessment and plan (1) ESRD on dialysis: 1. ESRD We will plan for dialysis tomorrow morning, 3-4 L of ultrafiltrate, 3K bath Continue M, W, F schedule 2. Chest discomfort Management per medical team in terms of ACS rule out etc. 3. Hypertension Continue home medication, ultrafiltration will help 4. Disposition okay for discharge tomorrow Thank you for consultation, it is a pleasure to follow these cases with you Exam and interview performed with aid of bedside RN using telemedicine Time spent 20 min inc > 50% of time in face to face counseling Caden Salazar MD [facility] [phone] Status: Acute Attestations Medical Necessity Statement*: eval for ESRD Coding Level of Care Code Acute Sweeper Operator Highways for Chg Fwd Diagnoses ESRD on dialysis N18.6; Z99.2
--- NOTE | 2021-08-03 20:04 | P.PN_ITS ---
Subjective Subjective: Thank you consultation, today I had the pleasure of reviewing Mr. Gibbs whom I know well from prior hospitalizations. He returns to the hospital with shortness of breath, pain in his abdomen and chest, it is unclear when he last received hemodialysis. He is not completely lucid, alert to person but not to place or time, easily falling asleep. He is not clear when he last had dialysis. As he is currently dependent on BiPAP. Dialysis ordered for this evening and he is now seen and examined on hemodialysis. Tolerating the therapy well so far. Vitals/I&O/Wt Last Vital Signs Temp 97.9 F 08/03/21 14:46 Pulse 77 08/03/21 18:34 Resp 15 08/03/21 18:30 BP 163/113 08/03/21 18:44 Pulse Ox 95 08/03/21 18:46 Weight last 48 hrs Weight 82.554 kg Weight 101.605 kg Physical Exam Narrative: Constitutional: Awake, comfortable HEENT: Wet mucosa, elevated jvp, non icteric Lungs: Bilaterally clear without discernible wheeze or rales in all lung zones CVS: S1 S2, no murmurs Abdo: Soft, BS ok, ascites Ext 4: Minimal edema, peripheral perfusion with no cyanosis Neurological: Grossly non-focal Data : 08/03/21 14:58 08/03/21 14:58 Micro: Microbiology 08/03/21 16:55 Blood Culture - Preliminary Blood SPECIMEN COLLECTED 08/03/21 16:45 Blood Culture - Preliminary Blood SPECIMEN COLLECTED A&P Assessment and plan (1) ESRD on dialysis: Status: Acute Attestations Medical Necessity Statement*: 1. ESRD Typically Thursday, Thursday and Thursday schedule. Seen and examined on hemodialysis this evening, 2K bath, UF 3-4 L over the next 3 hours. I will evaluate him tomorrow, however, plans to dialysis again on Thursday. 2. Shortness of breath Likely hypervolemia, unclear when he last had dialysis and effective ultrafiltration. Dialysis should help 3. Confusion He is falling asleep easily, he is arousable with only alert to person. Dialysis may help with there is an element of uremia. Work-up per medical team. 4. Chronic ESRD issues To be handled as an outpatient as part of standard monthly management 5. Hemodynamics Blood pressure elevated Continue home medication, aggressive ultrafiltration seeming should help. Thank you for consultation, it is a pleasure to follow these cases with you Exam and interview performed with aid of bedside RN using telemedicine Time spent 20 min inc > 50% of time in face to face counseling Caden Salazar MD [facility] [phone] Coding Level of Care Code Acute Special Procedures Tech for Chg Fwd Diagnoses ESRD on dialysis N18.6; Z99.2
[2021-08-03] MEDS: ipratropium-albuterol 3 mL Neb INHALATION (20:28)
--- NOTE | 2021-08-03 20:50 | ECG_ITS ---
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 Measurements Intervals [place] Rate: 80 P: 48 NH: 200 QRS: 50 QRSD: 120 T: 113 QT: 414 QTc: 479 Interpretive Statements SINUS RHYTHM POSSIBLE LEFT ATRIAL ENLARGEMENT [-0.1mV P-WAVE IN V1/V2] MODERATE INTRAVENTRICULAR CONDUCTION DELAY [110+ ms QRS DURATION] NONSPECIFIC T-WAVE ABNORMALITY Compared to ECG 08/03/2021 18:20:13 T-wave abnormality now present ST (T wave) deviation no longer present Electronically Signed On 08-06-2021 9:20:16 CDT by Bharathi Markham M.D. [id number]
[2021-08-03] MEDS: atorvastatin 40 mg Tablet PO (21:00)
[2021-08-03] MEDS: ondansetron 2 mg/ML SDV 2 mL 4 MG IVP (21:26)
[2021-08-03] MEDS: morphine 4 mg/mL SDV 1 mL 2 MG IVP (21:30)
[2021-08-03] MEDS: minoxidil 10 mg Tablet 5 MG PO (21:37)
[2021-08-03 22:06] LABS: Troponin 5 6HR Delta 3.9 ng/L (0-12)
[2021-08-03 22:07] LABS: Troponin 5 6HR 131.9 ng/L (0-15)
[2021-08-04] VITALS (31 sets, daily range): BP systolic 113–170; BP diastolic 63–110; PULSE 69–90; RESP 12–21; TEMP 36.4–36.9; O2SAT 90–99
[2021-08-04] MEDS: morphine 4 mg/mL SDV 1 mL 2 MG IVP ×2 (01:22→06:20)
[2021-08-04 01:38] LABS: Partial Thromboplastin Time 52.9 SECONDS (23.9-36.7)
[2021-08-04] MEDS: heparin 5,000 unit/mL INJ 1 mL IV ×2 (02:04→09:35)
[2021-08-04] MEDS: hyDRALAzine 50 mg Tablet PO (02:15)
[2021-08-04] MEDS: piperacillin-tazobactam 3.375 GM in sodium chloride 0.9% (plus) 50 ML IV ×3 (02:15→17:05)
[2021-08-04] MEDS: ipratropium-albuterol 3 mL Neb INHALATION ×3 (03:19→14:51)
[2021-08-04 03:58] LABS: Basophils # 0.1 10^3/uL (0.0-0.1); Basophils % 1.8 %; Eosinophils # 0.5 10^3/uL (0.0-0.8); Eosinophils % 13.5 %; Hematocrit 27.3 % (42.0-52.0); Hemoglobin 8.3 g/dL (11.7-16.6); Lymphocytes # 0.8 10^3/uL (0.8-4.8); Mean Corpuscular HGB Conc 30.4 g/dL (30.0-36.0); Mean Corpuscular Hemoglobin 29.3 pg (28.0-34.0); Mean Corpuscular Volume 96.5 fl (80-94); Mean Platelet Volume 10.3 fL (7.4-10.4); Monocytes # 0.4 10^3/uL (0.2-0.9); Monocytes % 9.1 %; Neutrophils # 2.22 10^3/uL (1.8-7.7); Neutrophils % 56.3 %; Nucleated Red Blood Cells % 0 %; Platelet Count 172 10^3/cmm (130-400); Red Blood Count 2.83 10^6/uL (4.1-5.3); Red Cell Distribution Width 18.5 % (12.1-15.1); White Blood Count 3.9 10^3/uL (4.0-10.0)
[2021-08-04 04:25] LABS: Procalcitonin 2.53 ng/mL (0-0.5)
[2021-08-04 04:41] LABS: ABG PCO2 54.9 mmHg (35-45); Arterial Blood Gas Hematocrit 35.7 % (42-52); Base Excess ABG 7.9 mmol/L (-2.0-2.0); Blood Gas Allen Test Pos; Blood Gas Sample Site Radial, right; Blood Gas Sample Type Arterial; HCO3 ABG 34.2 mmol/L (22-26); Oxygen Device BIPAP; PO2 ABG 62.9 mmHg (80.0-100.0)
[2021-08-04 04:41] LABS: Alanine Aminotransferase 7 U/L (0-41); Albumin Level 3.2 g/dL (3.5-5.2); Alkaline Phosphatase 107 IU/L (40-130); Aspartate Amino Transferase 14 U/L (0-40); Blood Urea Nitrogen 18 mg/dL (6-20); C Reactive Protein 32.2 mg/L (0.0-4.9); Calcium 9.2 mg/dL (8.5-10.5); Carbon Dioxide 28 mmol/L (22-29); Chloride 97 mmol/L (98-107); Globulin 2.9 g/dL (1.3-4.6); Glomerular Filtration Rate 14.7 mL/min (90-130); Glucose 66 mg/dL (65-115); Magnesium 1.9 mg/dL (1.7-2.3); Osmolality Calculated 282 mOsm/kg (285-295); Phosphorus 5.7 mg/dL (2.5-4.5); Sodium 136 mmol/L (136-145); Total Bilirubin 0.6 mg/dL (0.15-1.2); Total Protein 6.1 g/dL (6.6-8.7)
[2021-08-04 04:43] LABS: Anion Gap 15.3 (5-19); Potassium 4.3 mmol/L (3.5-5.1)
[2021-08-04 04:57] LABS: Glucose Point of Care 63 mg/dL (70-110)
[2021-08-04 06:04] LABS: Glucose Point of Care 66 mg/dL (70-110)
[2021-08-04] MEDS: ondansetron 2 mg/ML SDV 2 mL 4 MG IVP ×2 (06:11→14:31)
[2021-08-04] MEDS: isosorbide mononitrate ER 60 mg Tablet PO ×2 (06:11→17:05)
--- NOTE | 2021-08-04 07:00 | XRR_ITS ---
PROCEDURE INFORMATION: Exam: XR Chest Exam date and time: 08/04/2021 4:57 AM Age: 40 years old Clinical indication: Dyspnea; Additional info: SOB TECHNIQUE: Imaging protocol: XR of the chest. Views: 1 view. COMPARISON: CR (CHEST, ) 08/03/2021 2:56 PM FINDINGS: Lungs: There are patchy bilateral interstitial opacities present, right worse than left, findings suggesting worsening bilateral interstitial pneumonia versus pulmonary edema. Pleural spaces: Unremarkable. No pleural effusion. No pneumothorax. Heart/Mediastinum: Unremarkable. No cardiomegaly. Bones/joints: Unremarkable. XR/XR chest 1V portable [id number] IMPRESSION: 1. Worsening patchy bilateral interstitial opacities suggesting worsening bilateral pneumonia versus pulmonary edema.
--- NOTE | 2021-08-04 07:32 | PM.PN ---
Subjective Subjective: still sob and uncomfortable Medications: Reviewed: Yes Medication Review Details: Current Medications Acetaminophen (Acetaminophen 325 Mg Tablet) 650 mg PO Q6H PRN PRN Reason: Mild/Mod Pain Or Temp >/= 101 Albuterol/Ipratropium (Ipratropium-Albuterol 3 Ml Neb) 3 ml INHALATION Q6H.RESPIRATORY [facility] Last Admin: 08/04/21 03:19 Dose: 3 ml Documented by: Amlodipine Besylate (Amlodipine 10 Mg Tablet) 10 mg PO DAILY [facility] Aspirin (Aspirin 81 Mg Ec Tablet) 81 mg PO DAILY [facility] Atorvastatin Calcium (Atorvastatin 40 Mg Tablet) 40 mg PO BEDTIME [facility] Last Admin: 08/03/21 21:00 Dose: 40 mg Documented by: Carvedilol (Carvedilol 25 Mg Tablet) 25 mg PO BID [facility] Last Admin: 08/03/21 18:44 Dose: 25 mg Documented by: Clonidine HCl (Clonidine 0.1 Mg Tablet) 0.1 mg PO BID [facility] Last Admin: 08/03/21 18:44 Dose: 0.1 mg Documented by: Clopidogrel Bisulfate (Clopidogrel 75 Mg Tablet) 75 mg PO DAILY [facility] Heparin Sodium (Porcine) (Heparin 5,000 Unit/Ml Inj 1 Ml) 0 unit IV PRN PRN; Protocol PRN Reason: Heparin weight-base protocol Last Admin: 08/04/21 02:04 Dose: 1,700 unit Documented by: Hydralazine HCl (Hydralazine 50 Mg Tablet) 50 mg PO Q8H [facility] Last Admin: 08/04/21 02:15 Dose: 50 mg Documented by: Nitroglycerin/Dextrose (Nitroglycerin Drip) 50 mg in 250 mls @ 0 mls/hr IV .Q0M [facility]; Protocol Heparin Sodium/Sodium Chloride (Heparin Drip) 25,000 unit in 500 mls @ 0 mls/hr IV .Q0M [facility]; Protocol Last Titration: 08/04/21 01:55 Dose: 12.3 unit/kg/hr, 25 mls/hr Documented by: Piperacillin Sod/Tazobactam (Sod 3.375 gm/ Sodium Chloride) 50 mls @ 12.5 mls/hr IV Q8H [facility]; Protocol Last Admin: 08/04/21 02:15 Dose: 12.5 mls/hr Documented by: Isosorbide Mononitrate (Isosorbide Mononitrate Er 60 Mg Tablet) 60 mg PO Q12H [facility] Last Admin: 08/04/21 06:11 Dose: 60 mg Documented by: Minoxidil (Minoxidil 10 Mg Tablet) 5 mg PO BID@0900,2100 [facility] Last Admin: 08/03/21 21:37 Dose: 5 mg Documented by: Morphine Sulfate (Morphine 4 Mg/Ml Sdv 1 Ml) 2 mg IVP Q4H PRN PRN Reason: SEVERE PAIN Last Admin: 08/04/21 06:20 Dose: 2 mg Documented by: Ondansetron HCl (Ondansetron 2 Mg/Ml Sdv 2 Ml) 4 mg IVP Q8H PRN PRN Reason: vomiting, or N/V if npo Last Admin: 08/04/21 06:11 Dose: 4 mg Documented by: Pantoprazole Sodium (Pantoprazole Dr 40 Mg Tablet) 40 mg PO DAILY [facility] Rifaximin (Rifaximin 550 Mg Tablet) 550 mg PO BID [facility]; Protocol Last Admin: 08/03/21 18:44 Dose: 550 mg Documented by: Vitals/I&O/Wt Last Vital Signs Temp 98.2 F 08/04/21 05:50 Pulse 81 08/04/21 06:02 Resp 18 08/04/21 06:20 BP 151/82 08/04/21 04:00 Pulse Ox 94 08/04/21 06:02 08/03/21 08/04/21 08/04/21 22:59 06:59 14:59 Intake Total 175 / 175 309.467 / 484.467 Output Total 0 / 0 0 / 0 Balance 175 / 175 309.467 / 484.467 Weight last 48 hrs Weight 82.554 kg Weight 101.605 kg Physical Exam Narrative: sob in bed on bipap vs noted heent- nc/at, eomi, anicteric neck -supple lungs poor air movement and dull bases b/l heart reg, + s1, s2 abd soft, ascites ext- 1+ edema LUE aVG w/ bruit neuro- a,a, o x 2+ Data : 08/04/21 03:20 08/04/21 03:20 Micro: Microbiology 08/03/21 16:55 Blood Culture - Preliminary Blood SPECIMEN COLLECTED 08/03/21 16:45 Blood Culture - Preliminary Blood SPECIMEN COLLECTED A&P Assessment and plan (1) ESRD on dialysis: 40 yr old man 1. ESRD - MWF- remains voluem overloaded- repeat HD 3.5 hrs, 3k, remove 4l 2. hnt- hold meds- allow volume removal on HD 3. s/p Cardiac cath and stent of OM on 07-24-21- Ca npt possibly have restonosis 4. resp acidosis on bipap- consider steroids 5. Renal- bone- mineral metabolism- -phos binders - zemplar w/ hd 6. DM- monitor low gluc 7. anemia- po iron and TREY 8. abx per mesicine seen and examined w/ RN- telehealth visit time spent 25 min informed consent obtained for telehealth Status: Acute Plan see above Attestations Medical Necessity Statement*: resp distress, htn Time Spent in Patient Care: 16 - 35 minutes (>than 50% of time spent in counselling and/or direct pt care on unit). Coding Level of Care Code Acute Clinical Practice Consultant for [employer] Fwd Diagnoses ESRD on dialysis N18.6; Z99.2
[2021-08-04 08:30] LABS: Hepatitis B Surface Antigen Non-Reactive (Nonreactive); Hepatitis C Virus Antibody Non-Reactive (Nonreactive)
[2021-08-04 08:47] LABS: Partial Thromboplastin Time 50.8 SECONDS (23.9-36.7)
[2021-08-04] MEDS: dextrose 5%-sod chloride 0.9% 1,000 ML 30 ML IV (09:02)
[2021-08-04] MEDS: cloNIDine 0.1 mg Tablet PO ×2 (09:03→17:04)
[2021-08-04] MEDS: clopidogrel 75 mg Tablet PO (09:03)
[2021-08-04] MEDS: carvedilol 25 mg Tablet PO ×2 (09:03→17:04)
[2021-08-04] MEDS: vancomycin 1,500 MG/300 ML PIGGYBACK 200 MG IV (09:03)
[2021-08-04] MEDS: aspirin 81 mg EC Tablet PO (09:03)
[2021-08-04] MEDS: pantoprazole DR 40 mg Tablet PO (09:03)
[2021-08-04] MEDS: amlodipine 5 mg Tablet PO (09:10)
[2021-08-04] MEDS: hyDRALAzine 25 mg Tablet PO ×2 (09:11→17:04)
[2021-08-04 09:55] LABS: Hepatitis B Surface AB > 1000.0 (11.5-1000)
--- NOTE | 2021-08-04 10:17 | USCV_ITS ---
Mal Gibbs Age: 40 Gender: M : 1980 Exam Date: 08/04/2021 11:08 Ordering Phys: Tunde Umana MD Technologist: Jenny Cano Exam Location: [facility] [place] Indication: POST STENT SOB BP: 146 / 86 HR: 77 Rhythm: Sinus Technical Quality: MEASUREMENTS (Male / Female) Normal Values 2D ECHO LV Diastolic Diameter PLAX 4.4 cm 4.2 - 5.9 / 3.9 - 5.3 cm LV Systolic Diameter PLAX 2.7 cm LV Chamber Size 4.5 cm IVS Diastolic Thickness 1.8 cm 0.6 - 1.0 / 0.6 - 0.9 cm IVS Systolic Thickness 2.6 cm LVPW Diastolic Thickness 1.8 cm 0.6 - 1.0 / 0.6 - 0.9 cm LVPW Systolic Thickness 2.4 cm RV Chamber Size 3.1 cm LVOT Diameter 2.0 cm LV Ejection Fraction 2D Teich 68.6 % LV Ejection Fraction MOD 2C 60.5 % LV Ejection Fraction 2C AL 59.9 % LA Diameter 5.1 cm LA Width 4.7 cm LA Height 6.5 cm RA Width 5.2 cm RA Height 5.2 cm Aorta at Sinotubular Diameter 2.9 cm M-MODE Aortic Annulus Diameter 3.4 cm LA Ao Ratio MM 1.8 MV E Point Septal Separation 0.7 cm DOPPLER AV Peak Velocity 199.0 cm/s LVOT Peak Velocity 140.0 cm/s AV Area Cont Eq vti 2.3 cm squared AV Area Cont Eq pk 2.3 cm squared MV Area PHT 4.4 cm squared Mitral E to A Ratio 2.7 MV E' Velocity 86.0 cm/s Mitral E to MV E' Ratio 23.0 Mitral E to LV E' Lateral Ratio 25.5 Mitral E to LV E' Septal Ratio 21.2 TR Peak Velocity 252.1 cm/s TR Peak Gradient 25.4 mmHg TR Mean Velocity 260.0 cm/s TR Mean Gradient 31.1 mmHg TR Velocity Time Integral 127.1 cm Right Atrial Pressure 3.0 mmHg Pulmonary Artery Systolic Pressu 28.4 mmHg PV Peak Velocity 101.0 cm/s RV Acceleration Time 0.1 s RV Ejection Time 0.4 s RV AcT/ET 0.4 FINDINGS Left Ventricle Normal left ventricular cavity size. Moderate left ventricular hypertrophy. Normal left ventricular systolic function. Left ventricular ejection fraction is estimated at 60 %. Grade II/IV diastolic dysfunction, moderately elevated filling pressures. Right Ventricle Normal right ventricular size and systolic function. Right Atrium Moderately increased right atrial size. Left Atrium Moderately increased left atrial size. Mitral Valve Structurally normal mitral valve. Mild mitral valve regurgitation. Aortic Valve Structurally normal trileaflet aortic valve. No aortic valve regurgitation. No aortic valve stenosis. Tricuspid Valve Structurally normal tricuspid valve. Trace tricuspid valve regurgitation. Pulmonic Valve Pulmonic valve not well visualized. Pericardium Small pericardial effusion. Echocardiographic findings suggest a non hemodynamically significant pericardial effusion. Aorta Normal size aortic root and proximal ascending aorta. CONCLUSIONS Normal left ventricular cavity size. Moderate left ventricular hypertrophy. Normal left ventricular systolic function. Left ventricular ejection fraction is estimated at 60 %. Grade II/IV diastolic dysfunction, moderately elevated filling pressures. Moderately increased right atrial size. Moderately increased left atrial size. Structurally normal mitral valve. Mild mitral valve regurgitation. Small pericardial effusion. Echocardiographic findings suggest a non hemodynamically significant pericardial effusion. Dr. Bharathi Markham MD (Electronically Signed) Final Date: 04 August 2021 21:00 S
[2021-08-04] MEDS: heparin drip 25,000 UNIT/500 ML PREMIX 27 UNIT IV (13:16)
[2021-08-04 14:10] LABS: Basophils # 0.1 10^3/uL (0.0-0.1); Basophils % 1.6 %; Eosinophils # 0.6 10^3/uL (0.0-0.8); Eosinophils % 13.2 %; Hematocrit 26.5 % (42.0-52.0); Hemoglobin 8.2 g/dL (11.7-16.6); Lymphocytes # 0.6 10^3/uL (0.8-4.8); Lymphocytes % 12.6 %; Mean Corpuscular HGB Conc 30.9 g/dL (30.0-36.0); Mean Corpuscular Hemoglobin 29.5 pg (28.0-34.0); Mean Corpuscular Volume 95.3 fl (80-94); Mean Platelet Volume 10.1 fL (7.4-10.4); Monocytes # 0.6 10^3/uL (0.2-0.9); Monocytes % 12.8 %; Neutrophils # 2.61 10^3/uL (1.8-7.7); Neutrophils % 59.6 %; Nucleated Red Blood Cells % 0 %; Platelet Count 153 10^3/cmm (130-400); Red Blood Count 2.78 10^6/uL (4.1-5.3); White Blood Count 4.4 10^3/uL (4.0-10.0)
[2021-08-04 14:38] LABS: Partial Thromboplastin Time 55.6 SECONDS (23.9-36.7)
--- NOTE | 2021-08-04 15:22 | PM.PN ---
Subjective Subjective: Patient was seen this morning, family at bedside, he tells me he suddenly felt more short of breath and chest pain and that is what brought him to the hospital after his paracentesis, currently feeling better, no chest pain, no shortness of breath, received dialysis last night, off BiPAP Vitals/I&O/Wt Last Vital Signs Temp 98.2 F 08/04/21 05:50 Pulse 73 08/04/21 14:53 Resp 18 08/04/21 14:45 BP 170/98 08/04/21 13:00 Pulse Ox 97 08/04/21 14:45 08/04/21 08/04/21 08/04/21 06:59 14:59 22:59 Intake Total 359.467 / 534.467 490.533 / 490.533 Output Total 0 / 0 Balance 359.467 / 534.467 490.533 / 490.533 Weight last 48 hrs Weight 82.554 kg Weight 101.605 kg Physical Exam Const: COMMON NORMALS: no acute distress and patient oriented x3 Resp: COMMON NORMALS: normal respiratory effort, No retractions, No use of accessory muscles and clear to auscultation bilaterally AUSCULTATION: clear to auscultation bilaterally Cardio: COMMON NORMALS: regular rate, regular rhythm, S1 normal heart sound present and S2 normal heart sound present RATE: regular rate RHYTHM: regular rhythm HEART SOUNDS: S1 normal heart sound present and S2 normal heart sound present GI: COMMON NORMALS: Normal to inspection, nondistended, normoactive bowel sounds present, Soft to palpation and non-tender PALPATION: Yes Soft to palpation Extremity: COMMON NORMALS: no pedal edema Neuro: COMMON NORMALS: patient oriented x3 Psych: COMMON NORMALS: mental status grossly normal Data : 08/04/21 13:55 08/04/21 03:20 Micro: Microbiology 08/03/21 16:55 Blood Culture - Preliminary Blood SPECIMEN COLLECTED 08/03/21 16:45 Blood Culture - Preliminary Blood SPECIMEN COLLECTED A&P Assessment and plan (1) ESRD on dialysis: Status: Acute (2) Abdominal ascites: Status: Acute (3) Acute respiratory failure with hypoxia and hypercarbia: Status: Acute (4) Pulmonary edema: Status: Acute (5) Hypertensive emergency: Status: Acute (6) NSTEMI (non-ST elevated myocardial infarction): Status: Acute (7) Encephalopathy: Status: Acute Plan Acute hypoxic respiratory failure -Likely secondary to pulmonary edema -Possible aspiration pneumonia, right lower lobe infiltrate Plan -We will moved to general medical floors -Consulted nephrology for dialysis -Continue BiPAP as needed, monitor respiratory status closely -Full code -Heparin for DVT prophylaxis Acute encephalopathy -Resolved -Likely secondary respiratory failure, pulmonary edema, aspiration pneumonia, hypertensive encephalopathy Hyper tensive encephalopathy, hypertensive emergency -Off nitro drip Non-ST elevation TN -With history of ICD, recent history of PCI to OM1 -Continue aspirin, Plavix, statin, Coreg -Continue heparin drip -Serial EKGs consider troponins, negative delta troponin -Order cardiac echogram -Telemetry monitoring -Monitor for chest pain End-stage renal disease on dialysis, consult pulmonary for dialysis Hypertension, continue home medications Abdominal ascites, status post paracentesis Attestations Medical Necessity Statement*: Patient requires hospitalization for pulmonary edema, chest pain, NSTEMI Coding Level of Care Code Acute Constitutional Law Professor for [facility] Fwd Diagnoses ESRD on dialysis N18.6; Z99.2 Abdominal ascites R18.8 Acute respiratory failure with hypoxia and hypercarbia J96.01; J96.02 Pulmonary edema J81.1 Hypertensive emergency I16.1 NSTEMI (non-ST elevated myocardial infarction) I21.4 Encephalopathy G93.40
[2021-08-04 21:04] LABS: Partial Thromboplastin Time 58.5 SECONDS (23.9-36.7)
[2021-08-04] MEDS: atorvastatin 40 mg Tablet PO (23:23)
[2021-08-05] VITALS (11 sets, daily range): BP systolic 155–176; BP diastolic 85–95; PULSE 79–89; RESP 14–18; TEMP 36.6–37.3; O2SAT 90–94
[2021-08-05 00:17] LABS: Glucose Point of Care 112 mg/dL (70-110)
[2021-08-05] MEDS: piperacillin-tazobactam 3.375 GM in sodium chloride 0.9% (plus) 50 ML IV (01:56)
[2021-08-05] MEDS: hyDRALAzine 25 mg Tablet PO ×2 (01:59→09:26)
[2021-08-05 02:58] LABS: Basophils # 0.1 10^3/uL (0.0-0.1); Basophils % 1.4 %; Eosinophils # 0.5 10^3/uL (0.0-0.8); Eosinophils % 15.4 %; Hematocrit 26.3 % (42.0-52.0); Hemoglobin 8.2 g/dL (11.7-16.6); Lymphocytes # 0.6 10^3/uL (0.8-4.8); Lymphocytes % 16.8 %; Mean Corpuscular HGB Conc 31.2 g/dL (30.0-36.0); Mean Corpuscular Hemoglobin 29.7 pg (28.0-34.0); Mean Corpuscular Volume 95.3 fl (80-94); Monocytes # 0.5 10^3/uL (0.2-0.9); Monocytes % 13.1 %; Neutrophils # 1.86 10^3/uL (1.8-7.7); Nucleated Red Blood Cells % 0 %; Platelet Count 153 10^3/cmm (130-400); Red Blood Count 2.76 10^6/uL (4.1-5.3); Red Cell Distribution Width 17.8 % (12.1-15.1); White Blood Count 3.5 10^3/uL (4.0-10.0)
[2021-08-05] MEDS: morphine 4 mg/mL SDV 1 mL 2 MG IVP (03:20)
[2021-08-05 03:22] LABS: Procalcitonin 2.87 ng/mL (0-0.5)
[2021-08-05 03:35] LABS: Alanine Aminotransferase 6 U/L (0-41); Albumin Level 3.3 g/dL (3.5-5.2); Alkaline Phosphatase 106 IU/L (40-130); Anion Gap 15.5 (5-19); Aspartate Amino Transferase 11 U/L (0-40); Blood Urea Nitrogen 13 mg/dL (6-20); C Reactive Protein 47.7 mg/L (0.0-4.9); Carbon Dioxide 26 mmol/L (22-29); Chloride 95 mmol/L (98-107); Globulin 3.4 g/dL (1.3-4.6); Glomerular Filtration Rate 19.7 mL/min (90-130); Glucose 92 mg/dL (65-115); Magnesium 1.8 mg/dL (1.7-2.3); Osmolality Calculated 274 mOsm/kg (285-295); Phosphorus 3.9 mg/dL (2.5-4.5); Potassium 4.5 mmol/L (3.5-5.1); Sodium 132 mmol/L (136-145); Total Bilirubin 0.7 mg/dL (0.15-1.2); Total Protein 6.7 g/dL (6.6-8.7)
[2021-08-05 03:44] LABS: Partial Thromboplastin Time 53.9 SECONDS (23.9-36.7)
[2021-08-05] MEDS: heparin 5,000 unit/mL INJ 1 mL IV (04:09)
[2021-08-05] MEDS: isosorbide mononitrate ER 60 mg Tablet PO (05:35)
[2021-08-05] MEDS: dextrose 5%-sod chloride 0.9% 1,000 ML 30 ML IV (06:01)
[2021-08-05] MEDS: ipratropium-albuterol 3 mL Neb INHALATION (06:30)
[2021-08-05 06:36] LABS: Glucose Point of Care 77 mg/dL (70-110)
--- NOTE | 2021-08-05 07:57 | P.PN_ITS ---
Subjective Subjective: feels better. no n/v/f/c/julio/d/sob/ itching/ diarrhea. Medications: Reviewed: Yes Medication Review Details: Current Medications Acetaminophen (Acetaminophen 325 Mg Tablet) 650 mg PO Q6H PRN PRN Reason: Mild/Mod Pain Or Temp >/= 101 Albuterol/Ipratropium (Ipratropium-Albuterol 3 Ml Neb) 3 ml INHALATION Q6H.RESPIRATORY [facility] Last Admin: 08/05/21 05:46 Dose: Not Given Documented by: Albuterol/Ipratropium (Ipratropium-Albuterol 3 Ml Neb) 3 ml INHALATION Q4H PRN PRN Reason: SHORTNESS OF BREATH Last Admin: 08/05/21 06:30 Dose: 3 ml Documented by: Amlodipine Besylate (Amlodipine 5 Mg Tablet) 5 mg PO DAILY [facility] Last Admin: 08/04/21 09:10 Dose: 5 mg Documented by: Aspirin (Aspirin 81 Mg Ec Tablet) 81 mg PO DAILY [facility] Last Admin: 08/04/21 09:03 Dose: 81 mg Documented by: Atorvastatin Calcium (Atorvastatin 40 Mg Tablet) 40 mg PO BEDTIME [facility] Last Admin: 08/04/21 23:23 Dose: 40 mg Documented by: Carvedilol (Carvedilol 25 Mg Tablet) 25 mg PO BID [facility] Last Admin: 08/04/21 17:04 Dose: 25 mg Documented by: Clonidine HCl (Clonidine 0.1 Mg Tablet) 0.1 mg PO BID [facility] Last Admin: 08/04/21 17:04 Dose: 0.1 mg Documented by: Clopidogrel Bisulfate (Clopidogrel 75 Mg Tablet) 75 mg PO DAILY [facility] Last Admin: 08/04/21 09:03 Dose: 75 mg Documented by: Dextrose (Dextrose 50% Syringe 50 Ml) 25 ml IVP ONCE PRN; Protocol PRN Reason: hypoglycemia protocol Dextrose (Dextrose 50% Syringe 50 Ml) 50 ml IVP PRN PRN; Protocol PRN Reason: hypoglycemia protocol Glucagon (Glucagon 1 Mg/Ml Inj 1 Ml) 1 mg IM ONCE PRN; Protocol PRN Reason: Adult Acute Hypoglycemia Prot. Heparin Sodium (Porcine) (Heparin 5,000 Unit/Ml Inj 1 Ml) 0 unit IV PRN PRN; Protocol PRN Reason: Heparin weight-base protocol Last Admin: 08/05/21 04:09 Dose: 1,700 unit Documented by: Hydralazine HCl (Hydralazine 25 Mg Tablet) 25 mg PO Q8H [facility] Last Admin: 08/05/21 01:59 Dose: 25 mg Documented by: Nitroglycerin/Dextrose (Nitroglycerin Drip) 50 mg in 250 mls @ 0 mls/hr IV .Q0M [facility]; Protocol Heparin Sodium/Sodium Chloride (Heparin Drip) 25,000 unit in 500 mls @ 0 mls/hr IV .Q0M [facility]; Protocol Last Admin: 08/04/21 13:16 Dose: 13.29 unit/kg/hr, 27 mls/hr Documented by: Piperacillin Sod/Tazobactam (Sod 3.375 gm/ Sodium Chloride) 50 mls @ 12.5 mls/hr IV Q8H [facility]; Protocol Last Infusion: 08/05/21 05:56 Dose: Infused Documented by: Albumin Human (Albumin) 12.5 gm in 50 mls @ 60 mls/hr IV PRN PRN PRN Reason: Hypotension and/or symptomatic Dextrose (D5w) 500 mls @ 100 mls/hr IV ONCE PRN; Protocol PRN Reason: Adult Acute Hypoglycemia Prot Dextrose/Sodium Chloride (Dextrose 5%-Sod Chloride 0.9%) 1,000 mls @ 30 mls/hr IV .Q24H [facility] Last Admin: 08/05/21 06:01 Dose: 30 mls/hr Documented by: Vancomycin HCl 750 mg/ Sodium (Chloride) 250 mls @ 250 mls/hr IV MoWeFr [facility]; Protocol Isosorbide Mononitrate (Isosorbide Mononitrate Er 60 Mg Tablet) 60 mg PO Q12H [facility] Last Admin: 08/05/21 05:35 Dose: 60 mg Documented by: Morphine Sulfate (Morphine 4 Mg/Ml Sdv 1 Ml) 2 mg IVP Q4H PRN PRN Reason: SEVERE PAIN Last Admin: 08/05/21 03:20 Dose: 2 mg Documented by: Ondansetron HCl (Ondansetron 2 Mg/Ml Sdv 2 Ml) 4 mg IVP Q8H PRN PRN Reason: vomiting, or N/V if npo Last Admin: 08/04/21 14:31 Dose: 4 mg Documented by: Pantoprazole Sodium (Pantoprazole Dr 40 Mg Tablet) 40 mg PO DAILY [facility] Last Admin: 08/04/21 09:03 Dose: 40 mg Documented by: Rifaximin (Rifaximin 550 Mg Tablet) 550 mg PO BID [facility]; Protocol Last Admin: 08/04/21 17:04 Dose: 550 mg Documented by: Vitals/I&O/Wt Last Vital Signs Temp 97.8 F 08/05/21 07:14 Pulse 80 08/05/21 07:14 Resp 14 08/05/21 07:14 BP 176/95 08/05/21 07:14 Pulse Ox 94 08/05/21 07:14 08/04/21 08/05/21 08/05/21 22:59 06:59 14:59 Intake Total 1070 / 1610.533 679.5 / 2290.033 Output Total 0 / 0 4020 / 4020 Balance 1070 / 1610.533 -3340.5 / -1729.967 Weight last 48 hrs Weight 77.6 kg Weight 77.5 kg Weight 82.554 kg Weight 101.605 kg Physical Exam Narrative: comfortable in bed, NARD, VSS heent- nc/at, eomi, anicteric neck -supple lungs improved air movement and dull bases b/l heart reg, + s1, s2 abd soft, ascites dec ext- no edema +LUE aVG w/ bruit neuro- a,a, o x 3 Data : 08/05/21 02:28 08/05/21 02:28 Micro: Microbiology 08/03/21 16:55 Blood Culture - Preliminary Blood NEGATIVE TO DATE 08/03/21 16:45 Blood Culture - Preliminary Blood NEGATIVE TO DATE A&P Assessment and plan (1) ESRD on dialysis: 40 yr old man 1. ESRD - MWF- s/p HD last 2 days -plan repeat HD in am 3.5 hrs, 2k, remove 3 l 2. htn- monitor on current meds and volume removal 3. s/p Cardiac cath and stent of OM on 07-24-21. echo- Normal left ventricular cavity size. Moderate left ventricular ?hypertrophy. Normal left ventricular systolic function. Left ?ventricular ejection fraction is estimated at 60 %. Grade II/IV ?diastolic dysfunction, moderately elevated filling pressures. -small pericardial effusion- monitor BNP remains 24850 4. resp acidosis on bipap- consider steroids -appears more comfortable 5. Renal- bone- mineral metabolism- -phos normal - zemplar w/ hd 6. DM- monitor low gluc 7. anemia- po iron and TREY 8. abx per medicine 9. hyponatremia - monitor w/ HD seen and examined w/ RN- telehealth visit time spent 25 min informed consent obtained for telehealth Status: Acute Plan see above Attestations Medical Necessity Statement*: per medicine- needs hd in am prior to dc Time Spent in Patient Care: 16 - 35 minutes (>than 50% of time spent in counselling and/or direct pt care on unit) . Coding Level of Care Code Acute Cloth Trimmer Hand for Chg Fwd Diagnoses ESRD on dialysis N18.6; Z99.2
--- NOTE | 2021-08-05 08:11 | PC.NURSE ---
Patient unhappy with his meal brought up. He said he's not eating that and wanted biscuits and gravy. I called dietary and asked if he could have that on his renal diet. Mckayla in dietary advised that he could and would check to see him they had any left. If they don't patients family member stated that she would go get him some
--- NOTE | 2021-08-05 08:29 | PC.NURSE ---
Patient pulled out IV. Patient didn't want another placed r/t him suppose to be discharged today. I called Dr Umana since patient was on heparin drip. Order was gave to hold heparin at this time.
--- NOTE | 2021-08-05 08:55 | PC.NURSE ---
Patient had 2 IV's, heparin drip to be restarted
[2021-08-05] MEDS: heparin drip 25,000 UNIT/500 ML PREMIX 27 UNIT IV (09:20)
[2021-08-05] MEDS: cloNIDine 0.1 mg Tablet PO (09:25)
[2021-08-05] MEDS: clopidogrel 75 mg Tablet PO (09:25)
[2021-08-05] MEDS: carvedilol 25 mg Tablet PO (09:26)
[2021-08-05] MEDS: aspirin 81 mg EC Tablet PO (09:26)
[2021-08-05] MEDS: amlodipine 5 mg Tablet PO (09:26)
[2021-08-05] MEDS: pantoprazole DR 40 mg Tablet PO (09:26)
--- NOTE | 2021-08-05 12:03 | PM.DCS ---
Discharge Providers Date of Admission: 08/03/21 17:04 Date of Discharge: August 05, 2021 Attending Provider at Admission: Tunde Umana MD Attending Provider at Discharge: Tunde Umana MD Primary Care Provider: Mal Junior Diagnoses at Discharge Discharge Diagnosis (1) ESRD on dialysis: Status: Acute Reason for Visit Reason for Visit: CHEST PAIN; SOB Hospital Course Hospital Course Mal Gibbs is a 40 year old male with past medical history of end-stage renal disease dialysis dependent (M, W, F), history of uncontrolled hypertension with hypertensive cardiovascular disease,? history of heart failure with preserved ejection fraction/RV dysfunction on last echo, COPD, history of noncompliance with recurrent hospitalization for pulmonary edema, hypertensive emergency and missed dialysis.? Recent hospitalization for acute respiratory failure pulmonary edema, NSTEMI, requiring stenting to OM1.? Who presents [facility] due to increasing shortness of breath and chest pain.? Patient was admitted to [facility] for acute hypoxic respiratory failure secondary to limb edema, and aspiration pneumonia, with right lower lobe infiltrate. Received emergency dialysis, broad-spectrum antibiotic therapy, BiPAP therapy, clinically monitored, patient clinically improved, discharged with antibiotic therapy with close follow-up with primary care provider as outpatient, advised to be compliant with dialysis. Patient is dialysis days is Thursday, on 08/05/2021 patient refused dialysis as he needed to get to an appointment with his resource coordinator for his disability. Patient also had acute encephalopathy secondary to respiratory failure, pleural edema, aspiration pneumonia, hypertensive encephalopathy, resolved Hypertensive encephalopathy, nitro drip was on current, managed with p.o. medication, discharged on his oral medications Patient had troponin elevation during his hospitalization, recent history of PCI to OM1, history of ICD, medically managed with heparin drip, aspirin, Plavix, statin, Coreg. No recurrent chest pain, no telemetry events, no acute ST-T wave changes on EKG. Echocardiogram showed an EF of 60%, grade 2 out of 4 diastolic dysfunction, mildly elevated filling pressure, small pericardial effusion, nonhemodynamically significant pericardial effusion. Patient remained chest pain-free, discharged on his home aspirin, statin, Coreg, Plavix with close follow-up with cardiology as outpatient. Patient was advised if he were to have recurrent chest pain to the emergency room Physical Exam Const: COMMON NORMALS: no acute distress and patient oriented x3 Resp: COMMON NORMALS: normal respiratory effort, No retractions, No use of accessory muscles and clear to auscultation bilaterally AUSCULTATION: clear to auscultation bilaterally Cardio: COMMON NORMALS: regular rate, regular rhythm, S1 normal heart sound present and S2 normal heart sound present RATE: regular rate RHYTHM: regular rhythm HEART SOUNDS: S1 normal heart sound present and S2 normal heart sound present GI: COMMON NORMALS: Normal to inspection, nondistended, normoactive bowel sounds present and Soft to palpation PALPATION: Yes Soft to palpation Extremity: COMMON NORMALS: no pedal edema Neuro: COMMON NORMALS: patient oriented x3 Psych: COMMON NORMALS: mental status grossly normal Discharge Data Studies Completed and Pending Completed Studies During Hospitalization Category Date Time Status XR chest 1V portable [id number] Routine Exams 08/04/21 07:00 Completed XR chest 1V portable [id number] Urgent Exams 08/03/21 14:49 Completed CV. echo complete* [id number] Routine Ultrasound 08/04/21 10:17 Completed Pending at discharge Category Date Time Status Arterial Blood Gas W/O Coox AM LABS Lab 08/05/21 04:00 Ordered Arterial Blood Gas W/O Coox AM LABS Lab 08/06/21 04:00 Ordered Blood Culture Stat Lab 08/03/21 16:55 Results C Reactive Protein AM LABS Lab 08/06/21 04:00 Ordered Complete Blood Count w/Auto AM LABS Lab 08/06/21 04:00 Ordered Comprehensive Metabolic Panel AM LABS Lab 08/06/21 04:00 Ordered Drug Screen, Urine Routine Lab 08/04/21 08:16 Uncollected Magnesium AM LABS Lab 08/06/21 04:00 Ordered NT Pro B Type Natriuretic Pept QAM Lab 08/06/21 06:00 Ordered PTT [Partial Thromboplastin Time] Timed Lab 08/05/21 10:15 Ordered Phosphorus AM LABS Lab 08/06/21 04:00 Ordered Platelet Count Q2D Lab 08/07/21 04:00 Ordered Procalcitonin AM LABS Lab 08/06/21 04:00 Ordered Radiology Impressions Chest X-Ray 08/04/21 07:00 IMPRESSION: 1. Worsening patchy bilateral interstitial opacities suggesting worsening bilateral pneumonia versus pulmonary edema. Laboratory Results WBC 3.5 10^3/uL (4.0-10.0) L 08/05/21 02:28 RBC 2.76 10^6/uL (4.1-5.3) L 08/05/21 02: Hgb 8.2 g/dL (11.7-16.6) L 08/05/21 02: Hct 26.3 % (42.0-52.0) L 08/05/21 02: MCV 95.3 fl (80-94) H 08/05/21 02: MCH 29.7 pg (28.0-34.0) 08/05/21 02: MCHC 31.2 g/dL (30.0-36.0) 08/05/21 02: RDW 17.8 % (12.1-15.1) H 08/05/21 02: Plt Count 153 10^3/cmm (130-400) 08/05/21 02: MPV 10.0 fL (7.4-10.4) 08/05/21 02: Neut % (Auto) 53.0 % 08/05/21 02: Lymph % (Auto) 16.8 % 08/05/21 02: [place] % (Auto) 13.1 % 08/05/21 02: Eos % (Auto) 15.4 % 08/05/21 02: Baso % (Auto) 1.4 % 08/05/21 02: Neut # (Auto) 1.86 10^3/uL (1.8-7.7) 08/05/21 02: Lymph # (Auto) 0.6 10^3/uL (0.8-4.8) L 08/05/21 02: [place] # (Auto) 0.5 10^3/uL (0.2-0.9) 08/05/21 02: Eos # (Auto) 0.5 10^3/uL (0.0-0.8) 08/05/21 02: Baso # (Auto) 0.1 10^3/uL (0.0-0.1) 08/05/21 02: Nucleated RBC % (auto) 0 % 08/05/21 02: Nucleated RBCs # 0.0 /100WBC 08/05/21 02: APTT 53.9 SECONDS (23.9-36.7) H 08/05/21 02:28 Specimen Type Arterial 08/04/21 04:10 Sample Site Radial, right 08/04/21 04:10 ABG pH 7.40 (7.35-7.45) 08/04/21 04:10 ABG pCO2 54.9 mmHg (35-45) H 08/04/21 04:10 ABG pO2 62.9 mmHg (80.0-100.0) L 08/04/21 04:10 ABG HCO3 34.2 mmol/L (22-26) H 08/04/21 04:10 ABG Base Excess 7.9 mmol/L (-2.0-2.0) H 08/04/21 04:10 Alexei Test Pos 08/04/21 04:10 Hematocrit 35.7 % (42-52) L 08/04/21 04:10 O2 Delivery Device Bipap 08/04/21 04:10 O2 Liters/Min 15.0 % 08/03/21 14:57 FiO2 40.0 % 08/04/21 04:10 Clinical Nutrition Manager ID Rieri 08/04/21 04:10 Sodium 132 mmol/L (136-145) L 08/05/21 02:28 Potassium 4.5 mmol/L (3.5-5.1) 08/05/21 02:28 Chloride 95 mmol/L (98-107) L 08/05/21 02:28 Carbon Dioxide 26 mmol/L (22-29) 08/05/21 02:28 Anion Gap 15.5 (5-19) 08/05/21 02:28 BUN 13 mg/dL (6-20) 08/05/21 02:28 Creatinine 3.5 mg/dL (0.7-1.2) H 08/05/21 02:28 GFR Calculation 19.7 mL/min (90-130) L 08/05/21 02:28 Glucose 92 mg/dL (65-115) 08/05/21 02:28 POC Glucose 77 mg/dL (70-110) 08/05/21 06:33 Calculated Osmolality 274 mOsm/kg (285-295) L 08/05/21 02:28 Calcium 9.0 mg/dL (8.5-10.5) 08/05/21 02:28 Phosphorus 3.9 mg/dL (2.5-4.5) 08/05/21 02:28 Magnesium 1.8 mg/dL (1.7-2.3) 08/05/21 02:28 Total Bilirubin 0.7 mg/dL (0.15-1.2) 08/05/21 02:28 AST 11 U/L (0-40) 08/05/21 02:28 ALT 6 U/L (0-41) 08/05/21 02:28 Alkaline Phosphatase 106 IU/L (40-130) 08/05/21 02:28 Troponin T Baseline 128 ng/L (0-15) H* 08/03/21 14:58 Troponin T 120 Minute 116.0 ng/L (0-15) H 08/03/21 16:39 Delta Troponin T -12.0 ABS# (0-10) L 08/03/21 16:39 Troponin T Hi Sens 6Hr 131.9 ng/L (0-15) H 08/03/21 21:22 Troponin T Hi Sens 6Hr Delta 3.9 ng/L (0-12) 08/03/21 21:22 C-Reactive Protein 47.7 mg/L (0.0-4.9) H 08/05/21 02:28 NT-Pro-B Natriuret Pep 63404 pg/mL (0-125) H 08/05/21 02:28 Total Protein 6.7 g/dL (6.6-8.7) 08/05/21 02:28 Albumin 3.3 g/dL (3.5-5.2) L 08/05/21 02:28 Globulin 3.4 g/dL (1.3-4.6) 08/05/21 02:28 Lipase 13 U/L (13-60) 08/03/21 14:58 Procalcitonin 2.87 ng/mL (0-0.5) H 08/05/21 02:28 Hep Bs Antigen Non-reactive (Nonreactive) 08/03/21 14:58 Hep Bs Antibody > 1000.0 (11.5-1000) H 08/03/21 14:58 Hepatitis C Antibody Non-reactive (Nonreactive) 08/03/21 14:58 Vitals Last Vital Signs Temp 97.8 F 08/05/21 07:14 Pulse 88 08/05/21 08:51 Resp 14 08/05/21 07:14 BP 176/95 08/05/21 10:00 Pulse Ox 92 08/05/21 08:51 Discharge Plan Discharge Patient Disposition: Home Condition: Stable Prescriptions: New doxycycline hyclate 100 mg capsule 100 mg PO BID 7 Days Qty: 14 0RF nitroglycerin 0.4 mg tablet, sublingual 0.4 mg sublingual Q5M PRN (Reason: chest pain) 30 Days Qty: 30 0RF Rx Instructions: do not exceed 3 doses per episode Continued isosorbide mononitrate 60 mg tablet extended release 24 hr 60 mg PO Q12H 30 Days Qty: 60 0RF amlodipine 10 mg tablet 10 mg PO DAILY 30 Days Qty: 30 0RF Incruse Ellipta 62.5 mcg/actuation blister with device 1 inh INHALATION DAILY 0RF pantoprazole 40 mg tablet,delayed release (DR/EC) 40 mg PO DAILY 0RF albuterol sulfate [ProAir HFA] 90 mcg/actuation Hfa Aerosol Inhaler 2 puff INHALATION QID PRN (Reason: Shortness Of Breath) Qty: 2 4RF Xifaxan 550 mg tablet 550 mg PO BID 0RF aspirin 81 mg Tablet,Delayed Release (Dr/Ec) 81 mg PO DAILY Qty: 30 0RF atorvastatin 40 mg Tablet 40 mg PO BEDTIME Qty: 30 0RF clonidine HCl 0.1 mg Tablet 0.1 mg PO BID Qty: 60 0RF clopidogrel 75 mg Tablet 75 mg PO DAILY Qty: 30 0RF carvedilol 25 mg tablet 25 mg PO BID 30 Days Qty: 60 0RF minoxidil 10 mg Tablet 5 mg PO BID@0900,2100 30 Days Qty: 60 0RF hydralazine 50 mg Tablet 50 mg PO Q8H 30 Days Qty: 120 0RF Discharge Orders: Discharge Order (Routine); Ordered 08/05/21 Ordered By: Tunde Umana Referrals: Brijesh King M.D [Physician] - 4-7 days Mal Junior [Primary Care Provider] - Discharge Diet: Cardiac Discharge Activity: Resume usual activity Patient Instructions: Opioid Safety Activity Restrictions/Additional Instructions: -If you have recurrent chest pain please go to the emergency room -Please follow-up with cardiology in 1 week -Use nitro as needed for chest pain -Please use antibiotics as prescribed Discharge Attestations Time Spent in Discharge Care*: less than 30 min Status at Discharge: Cognitive status at discharge: cognitively intact, Behavioral status at discharge: cooperative, Quality Metrics Clinical Quality Measures [ No reported AMI, CVA or VTE this stay] Coding Level of Care Code Acute Chg FW DC note Exam Detailed Diagnoses ESRD on dialysis N18.6; Z99.2
[2021-08-05 12:57] LABS: Partial Thromboplastin Time 53.9 SECONDS (23.9-36.7)
== END 2021-08-05 13:00 | disposition home or self-care (01) | DRG 177 ==
LOC: ER 17:04 → ICU 17:23 → MEDSURG 08-04 17:33
PROVIDERS: Internal Medicine; Internal Medicine Nephrology; Admitting Provider Family Medicine; Emergency Provider Emergency Medicine; PCP Family Medicine; Visit Provider Family Medicine
DX: J69.0 Pneumonitis due to inhalation of food and vomit (principal); N18.6 End stage renal disease; J96.01 Acute respiratory failure with hypoxia; J96.02 Acute respiratory failure with hypercapnia; I13.2 Hypertensive heart and chronic kidney disease with heart failure and with stage 5 chronic kidney disease, or end stage renal disease; I67.4 Hypertensive encephalopathy; R18.8 Other ascites; I50.32 Chronic diastolic (congestive) heart failure; Z99.2 Dependence on renal dialysis; Z91.15 Patient's noncompliance with renal dialysis; J44.9 Chronic obstructive pulmonary disease, unspecified; I16.0 Hypertensive urgency; Z79.82 Long term (current) use of aspirin; Z79.02 Long term (current) use of antithrombotics/antiplatelets; I25.10 Atherosclerotic heart disease of native coronary artery without angina pectoris; E11.9 Type 2 diabetes mellitus without complications; D63.1 Anemia in chronic kidney disease
CPT/HCPCS: 36415; 36416; 36600; 49083; 71045; 80053; 82803; 82962; 83690; 83735; 83880; 84100; 84145; 84484; 85025; 85610; 85730; 86140; 86706; 86803; 87040; 87340; 93005; 93306; 94640; 94660; 94664; 96374; 96375; 96376; 99214; 99283; 99284; 99285; J1644; J2060; J2270; J2405; J2543; J3370

== ENCOUNTER 2021-08-11 08:54 | Emergency (ER) | payer MEDICARE, MEDICAID, SELFPAY ==
[2021-08-11] VITALS (8 sets, daily range): BP systolic 164–202; BP diastolic 99–124; PULSE 82–98; RESP 19–24; TEMP 36.5; O2SAT 90–95; BMI 23.2
--- NOTE | 2021-08-11 09:35 | XRR_ITS ---
PROCEDURE INFORMATION: Exam: XR Chest Exam date and time: 08/11/2021 9:56 AM Age: 40 years old Clinical indication: Shortness of breath; Prior surgery; Additional info: SOB TECHNIQUE: Imaging protocol: XR of the chest. Views: 1 view. COMPARISON: CR (CHEST, ) 08/04/2021 4:57 AM FINDINGS: Lungs: Improved bilateral airspace opacities. Pleural spaces: Unremarkable. No pleural effusion. No pneumothorax. Heart/Mediastinum: Cardiomegaly. Bones/joints: Unremarkable. XR/XR chest 1V portable [id number] IMPRESSION: Interval improvement in bilateral airspace opacities.
--- NOTE | 2021-08-11 09:36 | ECG_ITS ---
[facility] Test Date: 2021-08-11 Pat Name: Mal Gibbs Department: Room: Gender: Male Authorization Nurse: : 1980 Requested By: Elizabeth Malave Order Number: [id number] Mohini MD: Ruba Hussein M.D. Measurements Intervals Curtis Rate: 91 P: 62 MA: 180 QRS: 77 QRSD: 110 T: 66 QT: 379 QTc: 469 Interpretive Statements SINUS RHYTHM MODERATE T-WAVE ABNORMALITY, CONSIDER INFERIOR ISCHEMIA [-0.1+ mV T-WAVE IN II/aVF] Compared to ECG 08/04/2021 09:38:53 Possible ischemia now present Intraventricular conduction delay no longer present T-wave abnormality still present Electronically Signed On 08-11-2021 21:59:59 CDT by Ruba Hussein M.D. [id number]
--- NOTE | 2021-08-11 09:40 | ED_ITS ---
HPI - SOB/Dyspnea General: Chief Complaint: Shortness of Breath/Dyspnea Stated Complaint: ABD Pain with back pain SOB Time Seen by Provider: 08/11/21 09:26 Source: patient and family Mode of arrival: wheelchair Limitations: no limitations History of Present Illness: HPI Narrative: Patient is a 40 year old male with past medical history of end-stage renal disease on MWF dialysis (did complete dialysis on Thursday), uncontrolled hypertension (did not take BP meds today), heart failure with preserved ejection fraction/RV dysfunction on last echo (reports weight/fluid seems at his baseline currently), COPD continues to smoke, pulmonary edema, and history of noncompliance here with complaints of SOB, back pain, abdominal pains starting yesterday. Patient was discharged from hospital on 08/05 where he was admitted for acute respiratory failure, pulmonary edema, NSTEMI, encephalopathy, hypertensive emergency. Patient was discharged home on Doxycycline for treatment of pneumonia (CXR pneumonia vs pulmonary edema). States he was doing okay until last night. Last paracentesis I believe was 08/03 and he states he has one scheduled for 08/15. Has recently established PCP care with Dr. Peres. elicited complaint: shortness of breath Pertinent past history: COPD and congestive heart failure Onset (ago): day(s) (yesterday) Timing: constant Exacerbating factors: lying flat and stress Relieving factors: upright position Known history of: COPD and congestive heart failure Associated symptoms: Reports abdominal pain, nausea and orthopnea; Deny chest congestion, chest pain, dizziness, extremity pain, fever(s), hemoptysis, lightheadedness, palpitations, syncope or vomiting Related Data: Home oxygen amount: none Review of Systems Const: Denies: fever(s), chills, body aches, fatigue or malaise ENMT: Denies: throat pain, odynophagia, nasal discharge or nasal congestion Card: Reports: edema (chronic-at baseline), swelling of feet/ankles (chronic- at baseline), dyspnea on exertion and orthopnea; Denies: chest pain, palpitations, irregular heart rhythm, lightheadedness, syncope or pre-syncope Resp: Reports: dyspnea; Denies: wheezing, hemoptysis or chest congestion GI: Reports: abdominal pain and nausea; Denies: vomiting, diarrhea, change in bowel habits or change in stool character : Denies: flank pain Musc: Reports: back pain; Denies: neck pain, extremity pain or joint pain Skin/Breast: Denies: rash Neuro: Denies: headache(s), numbness in extremities, sensory changes or dizziness Psych: Reports: anxiety PFSH ED PFSH: Medical History (HFpEF) heart failure with preserved ejection fraction Abdominal ascites Abdominal distention Abnormality of rib determined by X-ray Acute diastolic CHF (congestive heart failure) Anasarca Anemia Anxiety with depression Arteriovenous fistula for hemodialysis in place, secondary Ascites Atherosclerosis of coronary artery Chronic abdominal pain Congestive heart failure COPD (chronic obstructive pulmonary disease) COPD (chronic obstructive pulmonary disease) COVID 05/25 Current smoker Degenerative disc disease, lumbar End-stage renal disease on hemodialysis Gross hematuria Hemoptysis Hepatomegaly Hyperkalemia Hypertension Hypertensive emergency Ileus PHT (pulmonary hypertension) Pulmonary embolism 09/21 Inconclusive for very tiny peripheral LEFT lower lobe pulmonary artery sub segmental emboli versus poor opacification. Right heart failure with reduced right ventricular function Smoking addiction Transaminitis Urethral stricture Surgical History H/O hand surgery Amputation right 2&3 fingers 2017 History of adenoidectomy Stented coronary artery Family History Father No problems noted. Other Hypertension Social History Smoking and tobacco status: never smoked Alcohol intake: never Marital status: Number of children: 3 Current occupational status: disabled History of recent travel: No Physical Exam Const: COMMON NORMALS: patient oriented x3, no limitations and alert GENERAL APPEARANCE: cooperative, disheveled and appears older than stated age ORIENTATION/CONSCIOUSNESS: Yes awake, Yes oriented to person, Yes oriented to p lace and Yes oriented to time HENMT: COMMON NORMALS: normocephalic and atraumatic HEAD & SCALP: normal to inspection, normocephalic and atraumatic TEETH & GINGIVA: Yes poor dentition Eye: GENERAL EYE: appearance normal, both eyes and all related structures Neck/C-Spine: COMMON NORMALS: full ROM, no lymphadenopathy and no meningeal signs Chest: COMMONS NORMALS: normal inspection of the chest and normal palpation of entire chest wall Resp: EFFORT & INSPECTION: Yes respiratory distress (requiring 2L of O2 at this time-sats 94%), No stridor, No Actively coughing and No retractions AUSCULTATION: rales bilateral Cardio: COMMON NORMALS: regular rate and regular rhythm RATE: regular rate RHYTHM: regular rhythm GI: COMMON NORMALS: Soft to palpation INSPECTION: Yes other (abdominal distention-ascities; patient states this is about his normal) PALPATION: Yes Soft to palpation and Yes Ascites present : COMMON NORMALS: Yes no CVA tenderness BLADDER/KIDNEY EXAM: Yes no CVA tenderness Back/Pelvis: COMMON NORMALS: no CVA tenderness Extremity: GENERAL: Yes normal exam except as noted OTHER: chronic bilateral LE edema-pt states swelling currently is at baseline and has not noticed much worsening Neuro: BUCK COMA SCALE: document GCS findings Buck coma scale eye opening: Spontaneous [place] coma scale verbal response: Orientated [place] coma scale motor response: Obey commands [place] coma scale total score: 15 COMMON NORMALS: patient oriented x3, moves all extremities, no focal motor deficits and no sensory deficits noted SENSORIUM/ORIENTATION: Yes alert, Yes oriented to person, Yes oriented to place and Yes oriented to time MENINGEAL SIGNS: Yes no meningeal signs Skin: COMMON NORMALS: no rashes or lesions noted GENERAL SKIN EXAM: no rashes or lesions noted Course Vital Signs: Vital signs: Vital Signs Temperature 97.7 F 08/11/21 09:19 Pulse Rate 82 08/11/21 11:51 Respiratory Rate 20 H 08/11/21 11:51 Blood Pressure 164/104 08/11/21 11:51 Pulse Oximetry 92 08/11/21 13:09 MDM - SOB/Dyspnea Medical Decision Making Patient is a 40-year-old male well-known to our emergency department as well as our hospitalist team. He has a rather extensive medical history consisting of COPD, ESRD on dialysis, CAD, uncontrolled HTN, CHF, chronic pain, liver cirrhosis/ascites requiring routine paracenteses, pulmonary edema. Patient's complaint today is shortness of breath, back pain, abdominal pain. His initial CXR shows interval improvement in bilateral airspace opacities when compared to previous plain films. CTA of his chest however shows multilobar pneumonia with interstitial pulmonary edema and small bilateral pleural effusions. He also has a moderate pericardial effusion. CT/abdomen pelvis portion shows moderate to large volume abdominal pelvic ascites. Patient states he felt like his abdominal distention today is fairly normal for him. He has a paracentesis scheduled on . He has dialysis scheduled for tomorrow. Patient did arrive very hypertensive. He admittedly did not take his medications this morning. Patient has a long standing history of noncompliance. Pressure has improved after giving him his morning meds as well as IV medications. He did arrive hypoxic requiring 2L of O2 on room air. Remainder of blood work shows chronic anemia, elevated kidney functions with a BUN/Cr 30/6.1-these are a li ttle high for him however probably normal given last dialysis was Thursday. Elevated baseline troponin at 101 however patient has chronic elevations to his troponins-delta negative. There are no ischemic changes on his initial or repeat EKGs. He is not having any active chest pain. BNP over 70,000 which appears to be close to his baseline. He is not complaining of worsening swelling and feels like his weight has been normal. I spoke to Dr. Vázquez regarding patient especially regarding CTA findings and need for oxygen. He evaluated patient (please see his note) and recommends hospitalization. I spoke to Dr. Hercules who is very familiar with patient and felt like patient could be safely discharged given the chronicity of the majority of his symptoms. He did recommend getting a home health O2 eval from the emergency department-order was been placed for this and RT completed-he did not qualify for home O2. Dr. Vázquez spoke directly to Dr. Hercules and requested consult on patient if the hospitalist feels he is stable for discharge. Dr. Hercules agreed and will evaluate patient. Recommended DC with extended doxycycline therapy to 14 days and addition of Augmentin. Lab Data : 08/11/21 10:18 08/11/21 10:18 Labs/Radiology: Radiology Impressions Chest X-Ray 08/11/21 09:35 IMPRESSION: Interval improvement in bilateral airspace opacities. Chest/Abdomen/Pelvis CT 08/11/21 10:11 IMPRESSION: 1. Multilobar pneumonia with interstitial pulmonary edema and small bilateral pleural effusions. 2. Moderate pericardial effusion. IMPRESSION: Hepatomegaly and splenomegaly and moderate to large volume abdominopelvic ascites. Laboratory Results WBC 6.8 10^3/uL (4.0-10.0) 08/11/21 10:18 RBC 3.32 10^6/uL (4.1-5.3) L 08/11/21 10:18 Hgb 9.7 g/dL (11.7-16.6) L 08/11/21 10:18 Hct 30.7 % (42.0-52.0) L 08/11/21 10:18 MCV 92.5 fl (80-94) 08/11/21 10:18 MCH 29.2 pg (28.0-34.0) 08/11/21 10:18 MCHC 31.6 g/dL (30.0-36.0) 08/11/21 10: RDW 19.0 % (12.1-15.1) H 08/11/21 10:18 Plt Count 186 10^3/cmm (130-400) 08/11/21 10:18 MPV 9.7 fL (7.4-10.4) 08/11/21 10:18 Neut % (Auto) 69.9 % 08/11/21 10:18 Lymph % (Auto) 11.3 % 08/11/21 10:18 [place] % (Auto) 8.0 % 08/11/21 10:18 Eos % (Auto) 9.5 % 08/11/21 10:18 Baso % (Auto) 1.0 % 08/11/21 10:18 Neut # (Auto) 4.72 10^3/uL (1.8-7.7) 08/11/21 10:18 Lymph # (Auto) 0.8 10^3/uL (0.8-4.8) 08/11/21 10:18 [place] # (Auto) 0.5 10^3/uL (0.2-0.9) 08/11/21 10:18 Eos # (Auto) 0.6 10^3/uL (0.0-0.8) 08/11/21:18 Baso # (Auto) 0.1 10^3/uL (0.0-0.1) 08/11/21 10:18 Nucleated RBC % (auto) 0 % 08/11/21 10:18 Nucleated RBCs # 0.0 /100WBC 08/11/21 10:18 Specimen Type Arterial 08/11/21 09:50 Sample Site Radial, right 08/11/21 09:50 ABG pH 7.44 (7.35-7.45) 08/11/21 09:50 ABG pCO2 39.9 mmHg (35-45) 08/11/21 09:50 ABG pO2 65.6 mmHg (80.0-100.0) L 08/11/21 09:50 ABG HCO3 27.0 mmol/L (22-26) H 08/11/21 09:50 ABG O2 Saturation 94.1 08/11/21 09:50 ABG Base Excess 2.7 mmol/L (-2.0-2.0) H 08/11/21 09:50 Alexei Test Pos 08/11/21 09:50 A-a O2 Gradient 4.3 mmHg (5-10) L 08/11/21 09:50 Hematocrit 28.9 % (42-52) L 08/11/21 09:50 Hgb O2 Saturation 90.4 % (95-100) L 08/11/21 09:50 Carboxyhemoglobin 3.0 %THgb (0.4-20.1) 08/11/21 09:50 Methemoglobin 1.0 % (0.4-1.5) 08/11/21 09:50 Total Hemoglobin 9.4 g/dL (14-18) L 08/11/21 09:50 Sodium 138.0 mmol/L (131-143) 08/11/21 09:50 Potassium 4.3 mmol/L (3.5-5.0) 08/11/21 09:50 Glucose 78.0 mg/dL (70-115) 08/11/21 09:50 Ionized Calcium 1.3 mmol/L (1.1-1.4) 08/11/21 09:50 O2 Delivery Device Nc 08/11/21 09:50 O2 Liters/Min 1.5 % 08/11/21 09:50 Vitamin Manager ID Nas 08/11/21 09:50 Sodium 135 mmol/L (136-145) L 08/11/21 10:18 Potassium 4.4 mmol/L (3.5-5.1) 08/11/21 10:18 Chloride 95 mmol/L (98-107) L 08/11/21 10:18 Carbon Dioxide 24 mmol/L (22-29) 08/11/21 10:18 Anion Gap 20.4 (5-19) H 08/11/21 10:18 BUN 30 mg/dL (6-20) H 08/11/21 10:18 Creatinine 6.1 mg/dL (0.7-1.2) H* 08/11/21 10:18 GFR Calculation 10.4 mL/min (90-130) L 08/11/21 10:18 Glucose 81 mg/dL (65-115) 08/11/21 10:18 Calculated Osmolality 285 mOsm/kg (285-295) 08/11/21 10:18 Lactic Acid 0.7 mmol/L (0.5-2.2) 08/11/21 10:18 Calcium 10.4 mg/dL (8.5-10.5) 08/11/21 10:18 Total Bilirubin 0.7 mg/dL (0.15-1.2) 08/11/21 10:18 AST 12 U/L (0-40) 08/11/21 10:18 ALT 6 U/L (0-41) 08/11/21 10:18 Alkaline Phosphatase 146 IU/L (40-130) H 08/11/21 10:18 Troponin T Baseline 101 ng/L (0-15) H* 08/11/21 10:18 Troponin T 120 Minute 90.98 ng/L (0-15) H 08/11/21 12:19 Delta Troponin T -10.02 ABS# (0-10) L 08/11/21 12:19 NT-Pro-B Natriuret Pep > 58007 pg/mL (0-125) H 08/11/21 10:18 Total Protein 7.5 g/dL (6.6-8.7) 08/11/21 10:18 Albumin 4.1 g/dL (3.5-5.2) 08/11/21 10:18 Globulin 3.4 g/dL (1.3-4.6) 08/11/21 10:18 Procalcitonin 1.00 ng/mL (0-0.5) H 08/11/21 10:18 Discharge Plan Discharge Patient Disposition: Home Clinical Impression: COPD (chronic obstructive pulmonary disease), ESRD on dialysis, CHF (congestive heart failure), Abdominal ascites, Bilateral pneumonia Condition: Stable Prescriptions: New amoxicillin-pot clavulanate 875-125 mg tablet 1 tab PO BID Qty: 14 0RF doxycycline hyclate 100 mg tablet 100 mg PO BID 8 Days Qty: 16 0RF No Action Incruse Ellipta 62.5 mcg/actuation blister with device 1 inh INHALATION DAILY Qty: 30 2RF quetiapine [Seroquel] 25 mg tablet 25 mg PO DAILY Qty: 30 1RF albuterol sulfate 2.5 mg /3 mL (0.083 %) solution for nebulization 2.5 mg inhalation BID Qty: 15 2RF albuterol sulfate [ProAir HFA] 90 mcg/actuation HFA aerosol inhaler 2 puff INHALATION QID PRN (Reason: Shortness Of Breath) Qty: 2 4RF nicotine 14 mg/24 hr patch 24 hour 1 patch transdermal DAILY Qty: 14 2RF cyclobenzaprine 10 mg tablet 10 mg PO Q12H PRN (Reason: muscle spasm) Qty: 30 0RF amoxicillin-pot clavulanate 875-125 mg tablet 1 tab PO Q12H 7 Days Qty: 14 0RF isosorbide mononitrate 60 mg tablet extended release 24 hr 60 mg PO Q12H 30 Days Qty: 60 0RF amlodipine 10 mg tablet 10 mg PO DAILY 30 Days Qty: 30 0RF pantoprazole 40 mg tablet,delayed release (DR/EC) 40 mg PO DAILY 0RF Xifaxan 550 mg tablet 550 mg PO BID 0RF aspirin 81 mg Tablet,Delayed Release (Dr/Ec) 81 mg PO DAILY Qty: 30 0RF atorvastatin 40 mg Tablet 40 mg PO BEDTIME Qty: 30 0RF clonidine HCl 0.1 mg Tablet 0.1 mg PO BID Qty: 60 0RF clopidogrel 75 mg Tablet 75 mg PO DAILY Qty: 30 0RF carvedilol 25 mg tablet 25 mg PO BID 30 Days Qty: 60 0RF minoxidil 10 mg Tablet 5 mg PO BID@0900,2100 30 Days Qty: 60 0RF hydralazine 50 mg Tablet 50 mg PO Q8H 30 Days Qty: 120 0RF doxycycline hyclate 100 mg capsule 100 mg PO BID 7 Days Qty: 14 0RF nitroglycerin 0.4 mg tablet, sublingual 0.4 mg sublingual Q5M PRN (Reason: chest pain) 30 Days Qty: 30 0RF Rx Instructions: do not exceed 3 doses per episode Discharge Orders: Discharge ED (Routine); Ordered 08/11/21 Ordered By: Elizabeth Malave Referrals: Mal Peres DO [Primary Care Provider] - Activity Restrictions/Additional Instructions: You have been evaluated by our hospitalist Dr. Hercules who feels you are stable to be treated as an outpatient at this time. We are extending your doxycycline antibiotic to a full 14-day course therefore I have written you for an additional 8 days. We are also placing you on Augmentin. You need to fill these medications and begin them immediately. You did not qualify for home oxygen. Make sure you attend your dialysis appointment tomorrow. You need to complete your paracentesis on as scheduled. You may return to the emergency department at any point for any concerns you may have. Coding Level of Care Code ED Clinical Documentation Nurse for Cristi Fwd Exam Comprehensive
[2021-08-11 10:00] LABS: ABG PCO2 39.9 mmHg (35-45); ABG PH Result 7.44 (7.35-7.45); Alveolar-Arterial Oxygen Gradi 4.3 mmHg (5-10); Arterial Blood Gas Hematocrit 28.9 % (42-52); Base Excess ABG 2.7 mmol/L (-2.0-2.0); Blood Gas Allen Test Pos; Blood Gas LPM 1.5 %; Blood Gas Sample Site Radial, right; Blood Gas Sample Type Arterial; HGB O2 Sat 90.4 % (95-100); Ionized Calcium Level - ABG 1.3 mmol/L (1.1-1.4); Oxygen Device NC; Oxygen Saturation ABG 94.1; PO2 ABG 65.6 mmHg (80.0-100.0); Potassium Level - ABG 4.3 mmol/L (3.5-5.0); Total Hemoglobin 9.4 g/dL (14-18)
--- NOTE | 2021-08-11 10:11 | CTR_ITS ---
PROCEDURE INFORMATION: Exam: CTA Chest With Contrast Exam date and time: 08/11/2021 10:58 AM Age: 40 years old Clinical indication: Abdominal pain and other: Mid back; Generalized; Chest pressure and on breathing; Patient HX: Recent heart attack; Additional info: SOB, mid back pain, abdominal pain TECHNIQUE: Imaging protocol: Computed tomographic angiography of the chest with contrast. 3D rendering (Not supervised by radiologist): MIP and/or 3D reconstructed images were created by the technologist. Radiation optimization: All CT scans at this facility use at least one of these dose optimization techniques: automated exposure control; mA and/or kV adjustment per patient size (includes targeted exams where dose is matched to clinical indication); or iterative reconstruction. Contrast material: VISIPAQUE 320; Contrast volume: 95 ml; Contrast route: INTRAVENOUS (IV); COMPARISON: 1. CT angio chest PE protcl [id number] 06/26/2021 1:[address] abdomen pelvis w con* [id number] 07/07/2021 6:41 AM RADIATION DOSE METRICS: Total DLP (mGy-cm): 1446.02 FINDINGS: Pulmonary arteries: No central or lobar pulmonary emboli. Evaluation for more distal pulmonary emboli is limited by suboptimal contrast bolus timing. Aorta: Unremarkable. No aortic aneurysm. No aortic dissection. Lungs: Calcified granulomas in the lungs bilaterally. Interstitial pulmonary edema. Patchy ground-glass opacities are noted in the lungs bilaterally, worsened from 06/26/2021. Pleural spaces: Small bilateral pleural effusions. No pneumothorax. Heart: Moderate coronary artery calcification. Moderate pericardial effusion. Lymph nodes: Similar mildly enlarged mediastinal lymph nodes. Index right paratracheal lymph node measures up to 1.6 cm, similar to prior. Bones/joints: Remote right rib fractures. Soft tissues: Bilateral gynecomastia. PROCEDURE INFORMATION: Exam: CT Abdomen And Pelvis With Contrast Exam date and time: 08/11/2021 10:58 AM Age: 40 years old Clinical indication: Abdominal pain and other: Mid back; Generalized; Chest pressure and on breathing; Patient HX: Recent heart attack; Additional info: SOB, mid back pain, abdominal pain TECHNIQUE: Imaging protocol: Computed tomography of the abdomen and pelvis with contrast. Radiation optimization: All CT scans at this facility use at least one of these dose optimization techniques: automated exposure control; mA and/or kV adjustment per patient size (includes targeted exams where dose is matched to clinical indication); or iterative reconstruction. Contrast material: VISIPAQUE 320; Contrast volume: 95 ml; Contrast route: INTRAVENOUS (IV); COMPARISON: 1. CT angio chest PE protcl [id number] 06/26/2021 1:[address] abdomen pelvis w con* [id number] 07/07/2021 6:41 AM RADIATION DOSE METRICS: Total DLP (mGy-cm): 1446.02 FINDINGS: Liver: Hepatomegaly. Gallbladder and bile ducts: Normal. No calcified stones. No ductal dilation. Pancreas: Normal. No ductal dilation. Spleen: Splenomegaly. Adrenal glands: Normal. No mass. Kidneys and ureters: Atrophic false pass kidneys without hydronephrosis. Stomach and bowel: Unremarkable. No obstruction. No mucosal thickening. Appendix: No evidence of appendicitis. Intraperitoneal space: Moderate to large volume abdominopelvic ascites. Arteries: Moderate burden of atherosclerotic plaque in the abdominal aorta and branch vessels. No aneurysm. Lymph nodes: Unremarkable. No enlarged lymph nodes. Urinary bladder: Unremarkable as visualized. Reproductive: Unremarkable as visualized. Bones/joints: Bilateral L5 pars defects with grade 1 anterolisthesis of L5 on S1. Soft tissues: Unremarkable. CT/CT angio chest w abd pel w con IMPRESSION: 1. Multilobar pneumonia with interstitial pulmonary edema and small bilateral pleural effusions. 2. Moderate pericardial effusion. IMPRESSION: Hepatomegaly and splenomegaly and moderate to large volume abdominopelvic ascites.
[2021-08-11 10:26] LABS: Basophils # 0.1 10^3/uL (0.0-0.1); Eosinophils # 0.6 10^3/uL (0.0-0.8); Eosinophils % 9.5 %; Hematocrit 30.7 % (42.0-52.0); Hemoglobin 9.7 g/dL (11.7-16.6); Lymphocytes # 0.8 10^3/uL (0.8-4.8); Lymphocytes % 11.3 %; Mean Corpuscular HGB Conc 31.6 g/dL (30.0-36.0); Mean Corpuscular Hemoglobin 29.2 pg (28.0-34.0); Mean Corpuscular Volume 92.5 fl (80-94); Mean Platelet Volume 9.7 fL (7.4-10.4); Monocytes # 0.5 10^3/uL (0.2-0.9); Neutrophils # 4.72 10^3/uL (1.8-7.7); Neutrophils % 69.9 %; Nucleated Red Blood Cells % 0 %; Platelet Count 186 10^3/cmm (130-400); Red Blood Count 3.32 10^6/uL (4.1-5.3); White Blood Count 6.8 10^3/uL (4.0-10.0)
[2021-08-11] MEDS: amlodipine 10 mg Tablet PO (10:45)
[2021-08-11] MEDS: carvedilol 25 mg Tablet PO (10:45)
[2021-08-11] MEDS: hyDRALAzine 25 mg Tablet PO (10:46)
[2021-08-11 10:47] LABS: Lactic Sepsis W/Reflex 0.7 mmol/L (0.5-2.2)
[2021-08-11 10:56] LABS: Troponin(5th) Baseline 101 ng/L (0-15)
[2021-08-11 11:10] LABS: Alanine Aminotransferase 6 U/L (0-41); Albumin Level 4.1 g/dL (3.5-5.2); Alkaline Phosphatase 146 IU/L (40-130); Anion Gap 20.4 (5-19); Aspartate Amino Transferase 12 U/L (0-40); Blood Urea Nitrogen 30 mg/dL (6-20); Calcium 10.4 mg/dL (8.5-10.5); Carbon Dioxide 24 mmol/L (22-29); Chloride 95 mmol/L (98-107); Creatinine Clr Calc Pharmacy 18.5497; Globulin 3.4 g/dL (1.3-4.6); Glomerular Filtration Rate 10.4 mL/min (90-130); Glucose 81 mg/dL (65-115); Osmolality Calculated 285 mOsm/kg (285-295); Potassium 4.4 mmol/L (3.5-5.1); Sodium 135 mmol/L (136-145); Total Bilirubin 0.7 mg/dL (0.15-1.2); Total Protein 7.5 g/dL (6.6-8.7)
[2021-08-11] MEDS: cloNIDine 0.1 mg Tablet PO (11:11)
[2021-08-11 11:24] LABS: NT Pro B Type Natriuretic Pept > 70000 pg/mL (0-125)
[2021-08-11] MEDS: hyDRALAzine 20 mg/mL INJ 1 mL 5 MG IVP (11:24)
--- NOTE | 2021-08-11 11:36 | ECG_ITS ---
[facility] Test Date: 2021-08-11 Pat Name: Mal Gibbs Department: Room: Gender: Male Report Analyst: : 1980 Requested By: Elizabeth Malave Order Number: [id number] Mohini MD: Ruba Hussein M.D. Measurements Intervals [place] Rate: 87 P: 65 FL: 207 QRS: 78 QRSD: 113 T: 90 QT: 386 QTc: 465 Interpretive Statements SINUS RHYTHM MODERATE INTRAVENTRICULAR CONDUCTION DELAY [110+ ms QRS DURATION] MODERATE T-WAVE ABNORMALITY, CONSIDER INFERIOR ISCHEMIA [-0.1+ mV T-WAVE IN II/aVF] Compared to ECG 08/04/2021 09:38:53 Possible ischemia now present T-wave abnormality still present Electronically Signed On 08-11-2021 22:03:24 CDT by Ruba Hussein M.D. [email or web address]
[2021-08-11] MEDS: iodixanol 320 mg/mL 100mL Btl IV (11:49)
--- NOTE | 2021-08-11 12:24 | PM.CONSULT ---
Providers/Reason For Consult Primary Care Provider: Mal Peres DO History of Present Illness History of Present Illness Mal Gibbs is a 40 year old male Medications/Allergies Home Medications Medication Instructions Recorded Confirmed Last Taken Type pantoprazole 40 mg tablet,delayed 40 mg PO DAILY 02/25/21 08/08/21 07/17/21 History release rifaximin 550 mg tablet (Xifaxan) 550 mg PO BID 06/10/21 08/08/21 07/17/21 History amlodipine 10 mg tablet 10 mg PO DAILY 30 Days #30 tab 07/16/21 08/08/21 07/17/21 Rx isosorbide mononitrate 60 mg 60 mg PO Q12H 30 Days #60 tab 07/16/21 08/08/21 07/17/21 Rx tablet,extended release 24 hr aspirin 81 mg tablet,delayed 81 mg PO DAILY #30 tab 07/25/21 08/08/21 Unknown Rx release atorvastatin 40 mg tablet 40 mg PO BEDTIME #30 tab 07/25/21 08/08/21 Unknown Rx carvedilol 25 mg tablet 25 mg PO BID 30 Days #60 tab 07/25/21 08/08/21 07/17/21 Rx clonidine HCl 0.1 mg tablet 0.1 mg PO BID #60 tab 07/25/21 08/08/21 Unknown Rx clopidogrel 75 mg tablet 75 mg PO DAILY #30 tab 07/25/21 08/08/21 Unknown Rx hydralazine 50 mg tablet 50 mg PO Q8H 30 Days #120 tab 07/25/21 08/08/21 07/17/21 Rx minoxidil 10 mg tablet 5 mg PO BID@0900,2100 30 Days #60 07/25/21 08/08/21 07/17/21 Rx tab doxycycline hyclate 100 mg capsule 100 mg PO BID 7 Days #14 cap 08/05/21 08/08/21 Unknown Rx nitroglycerin 0.4 mg sublingual 0.4 mg SUBLINGUAL Q5M PRN 30 Days 08/05/21 08/08/21 Unknown Rx tablet #30 tab albuterol sulfate 2.5 mg (3 mL) INHALATION BID #15 ml 08/06/21 08/08/21 Unknown Rx albuterol sulfate 90 mcg/actuation 2 puff INHALATION QID PRN #2 g 08/06/21 08/08/21 Unknown Rx aerosol inhaler (ProAir HFA) nicotine 14 mg/24 hr daily 1 patch TRANSDERMAL DAILY #14 ea 08/06/21 08/08/21 Unknown Rx transdermal patch quetiapine 25 mg tablet (Seroquel) 25 mg PO DAILY #30 tab 08/06/21 08/08/21 Unknown Rx umeclidinium 62.5 mcg/actuation 1 inh INHALATION DAILY #30 ea 08/06/21 08/08/21 Unknown Rx blister powder for inhalation (Incruse Ellipta) amoxicillin 875 mg-potassium 1 tab PO Q12H 7 Days #14 tab 08/08/21 08/08/21 Unknown Rx clavulanate 125 mg tablet cyclobenzaprine 10 mg tablet 10 mg PO Q12H PRN #30 tab 08/08/21 08/08/21 Unknown Rx Allergies Allergy/AdvReac Type Severity Reaction Status Date / Time nifedipine Allergy ALGY-Swell Verified 08/08/21 14:14 Lip/Tongue/Throat PFSH Acute PFSH: Medical History (HFpEF) heart failure with preserved ejection fraction Abdominal ascites Abdominal distention Abnormality of rib determined by X-ray Acute diastolic CHF (congestive heart failure) Anasarca Anemia Anxiety with depression Arteriovenous fistula for hemodialysis in place, secondary Ascites Atherosclerosis of coronary artery Chronic abdominal pain Congestive heart failure COPD (chronic obstructive pulmonary disease) COPD (chronic obstructive pulmonary disease) COVID 05/25 Current smoker Degenerative disc disease, lumbar End-stage renal disease on hemodialysis Gross hematuria Hemoptysis Hepatomegaly Hyperkalemia Hypertension Hypertensive emergency Ileus PHT (pulmonary hypertension) Pulmonary embolism 09/21 Inconclusive for very tiny peripheral LEFT lower lobe pulmonary artery sub segmental emboli versus poor opacification. Right heart failure with reduced right ventricular function Smoking addiction Transaminitis Urethral stricture Surgical History H/O hand surgery Amputation right 2&3 fingers 2017 History of adenoidectomy Stented coronary artery Family History Father No problems noted. 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
[2021-08-11] MEDS: cefTRIAXone 1,000 MG in sodium chloride 0.9% (plus) 50 ML 100 MG IV (12:35)
[2021-08-11 12:47] LABS: Troponin 5 2HR 90.98 ng/L (0-15)
[2021-08-11 12:52] LABS: Troponin 5 2HR Delta -10.02 ABS# (0-10)
[2021-08-11] MEDS: vancomycin 1,000 MG in sodium chloride 0.9% 250 ML 250 MG IV (13:24)
[2021-08-11] MEDS: orphenadrine 30 mg/mL Inj 2 mL 60 MG IVP (13:45)
== END 2021-08-11 14:37 | disposition home or self-care (01) ==
PROVIDERS: Emergency Provider Physician Assistant; PCP Family Medicine
DX: J44.9 Chronic obstructive pulmonary disease, unspecified (principal); N18.6 End stage renal disease; I50.9 Heart failure, unspecified; R18.8 Other ascites; J18.9 Pneumonia, unspecified organism; I10 Essential (primary) hypertension; I25.10 Atherosclerotic heart disease of native coronary artery without angina pectoris; J81.1 Chronic pulmonary edema; Z99.2 Dependence on renal dialysis
CPT/HCPCS: 36415; 36600; 71045; 71275; 74177; 80051; 80053; 82330; 82805; 83605; 83880; 84145; 84484; 85025; 93005; 96365; 96367; 96375; 99284; J0360; J0696; J2360; J3370; J7050; Q9967

== ENCOUNTER 2021-08-12 03:36 | Inpatient (IN) | payer MEDICARE, MEDICAID, SELFPAY ==
[2021-08-12] VITALS (190 sets, daily range): BP systolic 99–209; BP diastolic 55–115; PULSE 65–101; RESP 12–32; TEMP 36.6–37.1; O2SAT 77–99; BMI 23.1
--- NOTE | 2021-08-12 03:41 | XRR_ITS ---
PROCEDURE INFORMATION: Exam: XR Chest Exam date and time: 08/12/2021 4:37 AM Age: 40 years old Clinical indication: Dyspnea; Additional info: SOB TECHNIQUE: Imaging protocol: XR of the chest. Views: 1 view. COMPARISON: CR (CHEST, ) 08/11/2021 9:56 AM FINDINGS: Lungs: Interval appearance of patchy slight airspace opacities in the right lung base and suspicion of slight worsening of the increased interstitial markings in the left lung base and the right perihilar region. Very small calcified granuloma in the lower right lung still likely. Pleural spaces: Interval increase in the small right pleural effusion. Still no obvious left pleural fluid. No interval pneumothorax. Heart/Mediastinum: Continued prominently enlarged heart size. Recent chest CTA reported as showing a moderate pericardial effusion. Bones/joints: No suggestion of acute bony disease. XR/XR chest 1V portable [id number] IMPRESSION: Continued prominently enlarged heart size. Suspicion of interval worsening of pulmonary edema; interval early pneumonia in the right lung base not excluded. Interval increase in the small right pleural effusion.
--- NOTE | 2021-08-12 03:42 | ECG_ITS ---
[facility] Test Date: 2021-08-12 Pat Name: Mal Gibbs Department: Room: Gender: Male Air Quality Specialist: : 1980 Requested By: Dayana Nunez Order Number: [id number] Moihni MD: Ruba Hussein M.D. Measurements Intervals [place] Rate: 97 P: 64 IA: 195 QRS: 64 QRSD: 113 T: 81 QT: 360 QTc: 458 Interpretive Statements SINUS RHYTHM POSSIBLE RIGHT ATRIAL ENLARGEMENT [0.25mV P-WAVE] MODERATE INTRAVENTRICULAR CONDUCTION DELAY [110+ ms QRS DURATION] Compared to ECG 08/11/2021 12:04:18 T-wave abnormality no longer present Possible ischemia no longer present Electronically Signed On 08-12-2021 22:50:33 CDT by Ruba Hussein M.D. [id number]
--- NOTE | 2021-08-12 03:47 | ED_ITS ---
HPI - SOB/Dyspnea General: Chief Complaint: Shortness of Breath/Dyspnea Stated Complaint: SOB Time Seen by Provider: 08/12/21 03:38 Source: patient Mode of arrival: ambulatory Limitations: no limitations History of Present Illness: HPI Narrative: 40-year-old male who is very well-known to the ER has a history of end-stage renal disease is on dialysis Thursday has uncontrolled hypertension as well. He states that since yesterday has been having increasing shortness of breath chest pain. He is hypertensive here he is hypoxic here as well into the 70s requiring oxygen he does not require oxygen at baseline he states he did receive dialysis last Thursday. Denies any worsening improving factors. Associated symptoms: Reports chest pain; Deny abdominal pain, fever(s), nausea or vomiting Review of Systems Const: Denies: fever(s), chills, body aches or change in appetite Eyes: Denies: blurry vision or eye discomfort ENMT: Denies: throat pain or dental pain Card: Reports: chest pain Resp: Reports: dyspnea GI: Denies: abdominal pain, nausea, vomiting or diarrhea : Denies: dysuria Musc: Denies: neck pain or back pain Skin/Breast: Denies: rash Neuro: Denies: headache(s) Psych: Denies: depression Jefferson/Lymph: Denies: easy bruising All/Imm: Denies: urticaria PFSH ED PFSH: Medical History (HFpEF) heart failure with preserved ejection fraction Abdominal ascites Abdominal distention Abnormality of rib determined by X-ray Acute diastolic CHF (congestive heart failure) Anasarca Anemia Anxiety with depression Arteriovenous fistula for hemodialysis in place, secondary Ascites Atherosclerosis of coronary artery Chronic abdominal pain Congestive heart failure COPD (chronic obstructive pulmonary disease) COPD (chronic obstructive pulmonary disease) COVID 05/25 Current smoker Degenerative disc disease, lumbar End-stage renal disease on hemodialysis Gross hematuria Hemoptysis Hepatomegaly Hyperkalemia Hypertension Hypertensive emergency Ileus PHT (pulmonary hypertension) Pulmonary embolism 09/21 Inconclusive for very tiny peripheral LEFT lower lobe pulmonary artery sub segmental emboli versus poor opacification. Right heart failure with reduced right ventricular function Smoking addiction Transaminitis Urethral stricture Surgical History H/O hand surgery Amputation right 2&3 fingers 2017 History of adenoidectomy Stented coronary artery Family History Father No problems noted. Other Hypertension Social History Smoking and tobacco status: never smoked Alcohol intake: never Marital status: Number of children: 3 Current occupational status: disabled History of recent travel: No Physical Exam Const: COMMON NORMALS: patient oriented x3 GENERAL APPEARANCE: in distress and ill appearing HENMT: COMMON NORMALS: normocephalic and atraumatic HEAD & SCALP: normocephalic and atraumatic Eye: COMMON NORMALS: Equal, round and reactive pupils present and EOMs intact bilaterally PUPIL: Yes Equal, round and reactive pupils present Neck/C-Spine: COMMON NORMALS: full ROM and supple Chest: COMMONS NORMALS: normal inspection of the chest and normal palpation of entire chest wall Resp: EFFORT & INSPECTION: Yes tachypneic and Yes respiratory distress AUSCULTATION: rales Cardio: COMMON NORMALS: regular rate, regular rhythm and No murmurs present (Cardio) RATE: regular rate RHYTHM: regular rhythm GI: COMMON NORMALS: Normal to inspection, nondistended, normoactive bowel sounds present, Soft to palpation, non-tender and no masses PALPATION: Yes Soft to palpation Extremity: COMMON NORMALS: normal to inspection and full ROM Neuro: COMMON NORMALS: patient oriented x3, moves all extremities and no focal motor deficits Psych: COMMON NORMALS: mental status grossly normal, Normal thought process present and cooperative THOUGHT PROCESS: Normal thought process present Skin: COMMON NORMALS: no rashes or lesions noted and no wounds GENERAL SKIN EXAM: no rashes or lesions noted Course Vital Signs: Vital signs: Vital Signs Temperature 98.0 F 08/12/21 03:50 Pulse Rate 95 08/12/21 05:13 Respiratory Rate 28 H 08/12/21 05:13 Blood Pressure 144/83 08/12/21 05:34 Pulse Oximetry 96 08/12/21 05:34 MDM - SOB/Dyspnea Medical Decision Making Patient presents here with pulmonary edema from hypertensive emergency and congestive heart failure patient is requiring BiPAP at this time his potassium level here is normal. He is doing well on BiPAP spoke to the hospitalist will admit at this time. Lab Data : 08/12/21 04:00 08/12/21 04:36 Labs/Radiology: Radiology Impressions Chest X-Ray 08/12/21 03:41 IMPRESSION: Continued prominently enlarged heart size. Suspicion of interval worsening of pulmonary edema; interval early pneumonia in the right lung base not excluded. Interval increase in the small right pleural effusion. Laboratory Results WBC 7.2 10^3/uL (4.0-10.0) 08/12/21 04:00 RBC 3.42 10^6/uL (4.1-5.3) L 08/12/21 04:00 Hgb 10.1 g/dL (11.7-16.6) L 08/12/21 04:00 Hct 31.4 % (42.0-52.0) L 08/12/21 04:00 MCV 91.8 fl (80-94) 08/12/21 04:00 MCH 29.5 pg (28.0-34.0) 08/12/21 04:00 MCHC 32.2 g/dL (30.0-36.0) 08/12/21 04:00 RDW 19.3 % (12.1-15.1) H 08/12/21 04:00 Plt Count 204 10^3/cmm (130-400) 08/12/21 04:00 MPV 10.2 fL (7.4-10.4) 08/12/21 04:00 Neut % (Auto) 73.5 % 08/12/21 04:00 Lymph % (Auto) 9.9 % 08/12/21 04:00 Roane % (Auto) 7.5 % 08/12/21 04:00 Eos % (Auto) 7.8 % 08/12/21 04:00 Baso % (Auto) 1.0 % 08/12/21 04:00 Neut # (Auto) 5.29 10^3/uL (1.8-7.7) 08/12/21 04:00 Lymph # (Auto) 0.7 10^3/uL (0.8-4.8) L 08/12/21 04:00 Roane # (Auto) 0.5 10^3/uL (0.2-0.9) 08/12/21 04:00 Eos # (Auto) 0.6 10^3/uL (0.0-0.8) 08/12/21 04:00 Baso # (Auto) 0.1 10^3/uL (0.0-0.1) 08/12/21 04:00 Nucleated RBC % (auto) 0 % 08/12/21 04:00 Nucleated RBCs # 0.0 /100WBC 08/12/21 04:00 Specimen Type Arterial 08/12/21 03:54 Sample Site Radial, right 08/12/21 03:54 ABG pH 7.40 (7.35-7.45) 08/12/21 03:54 ABG pCO2 40.9 mmHg (35-45) 08/12/21 03:54 ABG pO2 62.2 mmHg (80.0-100.0) L 08/12/21 03:54 ABG HCO3 25.6 mmol/L (22-26) 08/12/21 03:54 ABG Base Excess 0.7 mmol/L (-2.0-2.0) 08/12/21 03:54 Alexei Test Pos 08/12/21 03:54 Hematocrit 28.1 % (42-52) L 08/12/21 03:54 O2 Delivery Device Nc 08/12/21 03:54 O2 Liters/Min 3.0 % 08/12/21 03:54 Permanent Waver ID [email or web address] 08/12/21 03:54 Sodium 131 mmol/L (136-145) L 08/12/21 04:36 Potassium 4.3 mmol/L (3.5-5.1) 08/12/21 04:36 Chloride 94 mmol/L (98-107) L 08/12/21 04:36 Carbon Dioxide 23 mmol/L (22-29) 08/12/21 04:36 Anion Gap 18.3 (5-19) 08/12/21 04:36 BUN 36 mg/dL (6-20) H 08/12/21 04:36 Creatinine 6.7 mg/dL (0.7-1.2) H* 08/12/21 04:36 GFR Calculation 9.3 mL/min (90-130) L 08/12/21 04:36 Glucose 82 mg/dL (65-115) 08/12/21 04:36 Calculated Osmolality 279 mOsm/kg (285-295) L 08/12/21 04:36 Calcium 9.9 mg/dL (8.5-10.5) 08/12/21 04:36 Total Bilirubin 0.7 mg/dL (0.15-1.2) 08/12/21 04:36 AST 11 U/L (0-40) 08/12/21 04:36 ALT < 5 U/L (0-41) 08/12/21 04:36 Alkaline Phosphatase 116 IU/L (40-130) 08/12/21 04:36 Troponin T Baseline 110 ng/L (0-15) H* 08/12/21 04:36 NT-Pro-B Natriuret Pep Cancelled 08/12/21 04:00 Total Protein 7.4 g/dL (6.6-8.7) 08/12/21 04:36 Albumin 3.7 g/dL (3.5-5.2) 08/12/21 04:36 Globulin 3.7 g/dL (1.3-4.6) 08/12/21 04:36 EKG Data EKG 1: I personally reviewed and interpreted this EKG as follows: EKG Interpretation Date: 08/12/21 EKG interpretation time: 03:52 Interpretation: nsr hr [address] or t wave abnormalities qrs 113 qtc 414 Critical Care Time Critical Care Time: Critical Care Time: Yes Total Critical Care Time: 45 Attestation: The high probability of a clinically significant, sudden or life threatening deterioration of the patient's resp system(s) required my full and direct attention, intervention and personal management. The critical care time is as shown. This time is in addition to time spent performing any reported procedures but includes the following: [x] Data and vital sign review and interpretation [x] Patient assessment, examination and intervention [x] Documentation [x] Medication orders and management Discharge Plan Discharge Patient Disposition: Admitted As Inpatient Clinical Impression: ESRD on dialysis, Hypertension, CHF (congestive heart failure) Condition: Stable Coding Level of Care Code ED Crew Dispatcher for Chg Fwd Exam Comprehensive
[2021-08-12] MEDS: ondansetron 2 mg/ML SDV 2 mL 4 MG IVP ×2 (04:10→17:38)
--- NOTE | 2021-08-12 04:12 | PC.NURSE ---
Labetalol out of stock, pharmacy bringing medication up.
[2021-08-12 04:14] LABS: Basophils # 0.1 10^3/uL (0.0-0.1); Eosinophils # 0.6 10^3/uL (0.0-0.8); Eosinophils % 7.8 %; Hematocrit 31.4 % (42.0-52.0); Hemoglobin 10.1 g/dL (11.7-16.6); Lymphocytes # 0.7 10^3/uL (0.8-4.8); Lymphocytes % 9.9 %; Mean Corpuscular HGB Conc 32.2 g/dL (30.0-36.0); Mean Corpuscular Hemoglobin 29.5 pg (28.0-34.0); Mean Corpuscular Volume 91.8 fl (80-94); Mean Platelet Volume 10.2 fL (7.4-10.4); Monocytes # 0.5 10^3/uL (0.2-0.9); Monocytes % 7.5 %; Neutrophils # 5.29 10^3/uL (1.8-7.7); Neutrophils % 73.5 %; Nucleated Red Blood Cells % 0 %; Platelet Count 204 10^3/cmm (130-400); Red Blood Count 3.42 10^6/uL (4.1-5.3); Red Cell Distribution Width 19.3 % (12.1-15.1); White Blood Count 7.2 10^3/uL (4.0-10.0)
[2021-08-12] MEDS: labetalol 5 mg/mL SDV 20mL 20 MG IVP (04:22)
[2021-08-12 04:25] LABS: ABG PCO2 40.9 mmHg (35-45); Arterial Blood Gas Hematocrit 28.1 % (42-52); Base Excess ABG 0.7 mmol/L (-2.0-2.0); Blood Gas Allen Test Pos; Blood Gas Sample Site Radial, right; Blood Gas Sample Type Arterial; HCO3 ABG 25.6 mmol/L (22-26); Oxygen Device NC; PO2 ABG 62.2 mmHg (80.0-100.0)
--- NOTE | 2021-08-12 05:06 | PC.NURSE ---
Addendum entered by Sergey Cr RN 08/12/21 05:07: called lab to make sure they received the second draw of labs, lab states they are running it right now. Original Note: Called lab to make sure they received the second draw of labs. Lab states they
[2021-08-12 05:31] LABS: Troponin(5th) Baseline 110 ng/L (0-15)
--- NOTE | 2021-08-12 05:33 | PC.NURSE ---
Notified Dr. Nunez of baseline trop. of 110
[2021-08-12 05:35] LABS: Alanine Aminotransferase < 5 U/L (0-41); Albumin Level 3.7 g/dL (3.5-5.2); Alkaline Phosphatase 116 IU/L (40-130); Anion Gap 18.3 (5-19); Aspartate Amino Transferase 11 U/L (0-40); Blood Urea Nitrogen 36 mg/dL (6-20); Calcium 9.9 mg/dL (8.5-10.5); Carbon Dioxide 23 mmol/L (22-29); Chloride 94 mmol/L (98-107); Globulin 3.7 g/dL (1.3-4.6); Glomerular Filtration Rate 9.3 mL/min (90-130); Glucose 82 mg/dL (65-115); Osmolality Calculated 279 mOsm/kg (285-295); Potassium 4.3 mmol/L (3.5-5.1); Sodium 131 mmol/L (136-145); Total Bilirubin 0.7 mg/dL (0.15-1.2); Total Protein 7.4 g/dL (6.6-8.7)
--- NOTE | 2021-08-12 05:42 | PC.NURSE ---
Notified Dr. Nunez of critical values.
--- NOTE | 2021-08-12 06:09 | PC.NURSE ---
Attempted to call report for patient, unable to receive report until after shift change.
--- NOTE | 2021-08-12 06:20 | PM.HP ---
Providers/Chief Complaint Primary Care Provider: Mal Peres DO Chief Complaint: SOB History of Present Illness The patient is a 40-year-old male who presents with chief complaint of dyspnea. Please note, the patient is stuporous during the course of my encounter and he requires frequent arousal. He is minimally cooperative and provides vague answers. He does not appear to be forthcoming regarding his past medical history. Unfortunately because of this, I am unable to obtain further history of present illness. He presents for further evaluation Review of Systems General: Reports: 10 or more systems reviewed and unremarkable except in HPI and below Medications/Allergies Home Medications Medication Instructions Recorded Confirmed Last Taken Type pantoprazole 40 mg tablet,delayed 40 mg PO DAILY 02/25/21 08/08/21 07/17/21 History release rifaximin 550 mg tablet (Xifaxan) 550 mg PO BID 06/10/21 08/08/21 07/17/21 History amlodipine 10 mg tablet 10 mg PO DAILY 30 Days #30 tab 07/16/21 08/08/21 07/17/21 Rx isosorbide mononitrate 60 mg 60 mg PO Q12H 30 Days #60 tab 07/16/21 08/08/21 07/17/21 Rx tablet,extended release 24 hr aspirin 81 mg tablet,delayed 81 mg PO DAILY #30 tab 07/25/21 08/08/21 Unknown Rx release atorvastatin 40 mg tablet 40 mg PO BEDTIME #30 tab 07/25/21 08/08/21 Unknown Rx carvedilol 25 mg tablet 25 mg PO BID 30 Days #60 tab 07/25/21 08/08/21 07/17/21 Rx clonidine HCl 0.1 mg tablet 0.1 mg PO BID #60 tab 07/25/21 08/08/21 Unknown Rx clopidogrel 75 mg tablet 75 mg PO DAILY #30 tab 07/25/21 08/08/21 Unknown Rx hydralazine 50 mg tablet 50 mg PO Q8H 30 Days #120 tab 07/25/21 08/08/21 07/17/21 Rx minoxidil 10 mg tablet 5 mg PO BID@0900,2100 30 Days #60 07/25/21 08/08/21 07/17/21 Rx tab nitroglycerin 0.4 mg sublingual 0.4 mg SUBLINGUAL Q5M PRN 30 Days 08/05/21 08/08/21 Unknown Rx tablet #30 tab albuterol sulfate 2.5 mg (3 mL) INHALATION BID #15 ml 08/06/21 08/08/21 Unknown Rx albuterol sulfate 90 mcg/actuation 2 puff INHALATION QID PRN #2 g 08/06/21 08/08/21 Unknown Rx aerosol inhaler (ProAir HFA) nicotine 14 mg/24 hr daily 1 patch TRANSDERMAL DAILY #14 ea 08/06/21 08/08/21 Unknown Rx transdermal patch quetiapine 25 mg tablet (Seroquel) 25 mg PO DAILY #30 tab 08/06/21 08/08/21 Unknown Rx umeclidinium 62.5 mcg/actuation 1 inh INHALATION DAILY #30 ea 08/06/21 08/08/21 Unknown Rx blister powder for inhalation (Incruse Ellipta) amoxicillin 875 mg-potassium 1 tab PO Q12H 7 Days #14 tab 08/08/21 08/08/21 Unknown Rx clavulanate 125 mg tablet cyclobenzaprine 10 mg tablet 10 mg PO Q12H PRN #30 tab 08/08/21 08/08/21 Unknown Rx amoxicillin 875 mg-potassium 1 tab PO BID #14 tab 08/11/21 Unknown Rx clavulanate 125 mg tablet doxycycline hyclate 100 mg tablet 100 mg PO BID 8 Days #16 tab 08/11/21 Unknown Rx Allergies Allergy/AdvReac Type Severity Reaction Status Date / Time nifedipine Allergy ALGY-Swell Verified 08/08/21 14:14 Lip/Tongue/Throat PFSH Acute PFSH: Medical History (HFpEF) heart failure with preserved ejection fraction Abdominal ascites Abdominal distention Abnormality of rib determined by X-ray Acute diastolic CHF (congestive heart failure) Anasarca Anemia Anxiety with depression Arteriovenous fistula for hemodialysis in place, secondary Ascites Atherosclerosis of coronary artery Chronic abdominal pain Congestive heart failure COPD (chronic obstructive pulmonary disease) COPD (chronic obstructive pulmonary disease) COVID 05/25 Current smoker Degenerative disc disease, lumbar End-stage renal disease on hemodialysis Gross hematuria Hemoptysis Hepatomegaly Hyperkalemia Hypertension Hypertensive emergency Ileus PHT (pulmonary hypertension) Pulmonary embolism 09/21 Inconclusive for very tiny peripheral LEFT lower lobe pulmonary artery sub segmental emboli versus poor opacification. Right heart failure with reduced right ventricular function Smoking addiction Transaminitis Urethral stricture Surgical History H/O hand surgery Amputation right 2&3 fingers 2017 History of adenoidectomy Stented coronary artery Family History Father No problems noted. Other Hypertension Social History Smoking and tobacco status: never smoked Alcohol intake: never Marital status: Number of children: 3 Current occupational status: disabled History of recent travel: No Vitals/I&O/Wt Last Vital Signs Temp 98.0 F 08/12/21 03:50 Pulse 79 08/12/21 06:06 Resp 28 H 08/12/21 05:13 BP 149/88 08/12/21 06:06 Pulse Ox 95 08/12/21 06:06 Weight last 48 hrs Weight 79.379 kg Physical Exam Narrative: General: -Alert -No acute distress -No dyspnea -No tachypnea Head: -Atraumatic -Normocephalic Eyes: -Pupils equally round and reactive to light and accommodation -Extraocular muscles intact Neurological: -Cranial nerves II-XII intact Neck: -No jugular venous distention -No thyromegaly -No cervical lymphadenopathy Heart: -Regular rate -Regular rhythm -No murmurs -No gallops -No rubs Lungs: -No wheeze -No rhonchi -No rales ? Abdomen: -Normal bowel sounds in all four quadrants -No rebound -No guarding -No tenderness Extremities: -2/4 pulse in all four extremities -No clubbing -No cyanosis -No edema -No calf tenderness present bilaterally -Negative Clifford?s sign bilaterally Musculoskeletal: -5/5 bilateral upper extremity strength -5/5 bilateral lower extremity strength -Sensorium of bilateral upper extremities are equal and intact -Sensorium of bilateral lower extremities are equal and intact ? Additional Details / Additional Findings / Exceptions / Miscellaneous: Data : 08/12/21 04:00 08/12/21 04:36 A&P Assessment and plan (1) CHF (congestive heart failure): Status: Acute Plan Dyspnea. Secondary to fluid overload due to suspected/likely medical noncompliance with his hemodialysis. Pneumonia is a possibility however it appears less likely. Patient does not appear to be an exacerbation of COPD Fluid overload likely due to medical noncompliance with hemodialysis. Nephrology consult pending. Strict I/O. Daily weight. Will monitor serum electro lites periodically Hyperparathyroidism Hypothyroidism Hyponatremia, chronic. We will monitor sodium level intermittently. Will see if hemodialysis is able to correct this Query pneumonia. If we see no improvement the patient's respiratory status following hemodialysis, we may consider initiation of antibiotics however they do not appear warranted at this time Elevated troponin, chronic. Will monitor patient on telemetry and checks her cardiac enzymes. Will monitor EKGs. Aspirin 81 Mill grams by mouth daily plus Lipitor 40 Mill grams by mouth daily at bedtime prescribed 25 Mill grams by mouth twice a day plus Imdur 60 Mill grams by mouth every 12 hours plus Plavix any 5 Mill grams by mouth daily Moderate pulmonary hypertension Anxiety Muscle spasm Anemia, chronic. We will monitor her hemoglobin intermittently. Check serum ferritin, iron panel, fecal occult blood COPD. I do not believe that the patient is O2 dependent. I do not believe that the patient's in exacerbation at this time CHF, ejection fraction 45%. Strict I/O. Daily weight. Coreg 25 Mill grams by mouth twice a day Coronary artery disease, status post stent, status post angioplasty. Coreg 25 Mill grams by mouth twice a day plus aspirin 81 Mill grams by mouth daily plus Lipitor 40 Mill grams by mouth daily at bedtime plus Plavix 75 Mill grams by mouth daily plus Imdur 60 Mill grams by mouth every 12 hours GERD Hyperlipidemia. Lipitor 40 Mill grams by mouth daily at bedtime Hypertension. Norvasc 10 mg by mouth daily plus Coreg 25 Mill grams by mouth twice a day plus minoxidil 5 Mill grams by mouth twice a day plus Imdur 60 Mill grams by mouth every 12 hours plus hydralazine 50 mg by mouth daily at 2 8 hours plus clonidine 0.1 mg by mouth twice a day Smoker. The patient becomes regarding smoking cessation Luis arthritis Depression. Seroquel 25 mg by mouth daily Degenerative disc disease Query history of hyperammonemia. Ammonia level pending. Xifaxan 550 mg by mouth twice a day Likely/suspected medical noncompliance. The patient will need to be counseled regarding medical compliance DVT prophylaxis. Heparin 5000 units subcutaneous leak every 12 hours I placed an order for request for case management evaluation to introduce the patient to hospice given his poor short-term and long-term prognosis Attestations Medical Necessity Statement*: The patient's hospitalization is expected to be greater than 2 midnights due to his dyspnea due to fluid overload Coding Level of Care Code Acute Hydro Excavation Operator for g Fwd Diagnoses CHF (congestive heart failure) I50.9
[2021-08-12 06:29] LABS: NT Pro B Type Natriuretic Pept 84709 pg/mL (0-125)
--- NOTE | 2021-08-12 06:50 | PC.NURSE ---
Patient in bed, resting with eyes closed, BIpap on patient at this time, vitals stable.
[2021-08-12 06:56] LABS: Troponin 5 2HR 98.52 ng/L (0-15); Troponin 5 2HR Delta -11.48 ABS# (0-10)
--- NOTE | 2021-08-12 07:23 | PC.NURSE ---
Assumed care, pt resting comfortably w bipap, no needs voiced at this time.
--- NOTE | 2021-08-12 08:00 | PM.CONSULT ---
Providers/Reason For Consult Consulting Physician/Specialty*: tona rosario md /telenephrology Reason for Consult*: ESRD care Requesting Physician: Dr Amin and DR Hernandez Attending Physician: Brigitte Amin MD Primary Care Provider: Mal Peres DO History of Present Illness History of Present Illness Mal Gibbs is a 40 year old male ESRD here w/ AMS and inc edema and SOB. Pt states he did not miss dialysis. Pt was recently discharged on 08/05/21. He was treated for HTN urgency and PNA. He came to eR 2 times yesterday for SOB. Review of Systems Narrative: weak, confused, SOB, edema, confused, nausea. Medications/Allergies Home Medications Medication Instructions Recorded Confirmed Last Taken Type pantoprazole 40 mg tablet,delayed 40 mg PO DAILY 02/25/21 08/08/21 07/17/21 History release rifaximin 550 mg tablet (Xifaxan) 550 mg PO BID 06/10/21 08/08/21 07/17/21 History amlodipine 10 mg tablet 10 mg PO DAILY 30 Days #30 tab 07/16/21 08/08/21 07/17/21 Rx isosorbide mononitrate 60 mg 60 mg PO Q12H 30 Days #60 tab 07/16/21 08/08/21 07/17/21 Rx tablet,extended release 24 hr aspirin 81 mg tablet,delayed 81 mg PO DAILY #30 tab 07/25/21 08/08/21 Unknown Rx release atorvastatin 40 mg tablet 40 mg PO BEDTIME #30 tab 07/25/21 08/08/21 Unknown Rx carvedilol 25 mg tablet 25 mg PO BID 30 Days #60 tab 07/25/21 08/08/21 07/17/21 Rx clonidine HCl 0.1 mg tablet 0.1 mg PO BID #60 tab 07/25/21 08/08/21 Unknown Rx clopidogrel 75 mg tablet 75 mg PO DAILY #30 tab 07/25/21 08/08/21 Unknown Rx hydralazine 50 mg tablet 50 mg PO Q8H 30 Days #120 tab 07/25/21 08/08/21 07/17/21 Rx minoxidil 10 mg tablet 5 mg PO BID@0900,2100 30 Days #60 07/25/21 08/08/21 07/17/21 Rx tab nitroglycerin 0.4 mg sublingual 0.4 mg SUBLINGUAL Q5M PRN 30 Days 08/05/21 08/08/21 Unknown Rx tablet #30 tab albuterol sulfate 2.5 mg (3 mL) INHALATION BID #15 ml 08/06/21 08/08/21 Unknown Rx albuterol sulfate 90 mcg/actuation 2 puff INHALATION QID PRN #2 g 08/06/21 08/08/21 Unknown Rx aerosol inhaler (ProAir HFA) nicotine 14 mg/24 hr daily 1 patch TRANSDERMAL DAILY #14 ea 08/06/21 08/08/21 Unknown Rx transdermal patch quetiapine 25 mg tablet (Seroquel) 25 mg PO DAILY #30 tab 08/06/21 08/08/21 Unknown Rx umeclidinium 62.5 mcg/actuation 1 inh INHALATION DAILY #30 ea 08/06/21 08/08/21 Unknown Rx blister powder for inhalation (Incruse Ellipta) amoxicillin 875 mg-potassium 1 tab PO Q12H 7 Days #14 tab 08/08/21 08/08/21 Unknown Rx clavulanate 125 mg tablet cyclobenzaprine 10 mg tablet 10 mg PO Q12H PRN #30 tab 08/08/21 08/08/21 Unknown Rx amoxicillin 875 mg-potassium 1 tab PO BID #14 tab 08/11/21 Unknown Rx clavulanate 125 mg tablet doxycycline hyclate 100 mg tablet 100 mg PO BID 8 Days #16 tab 08/11/21 Unknown Rx Allergies Allergy/AdvReac Type Severity Reaction Status Date / Time nifedipine Allergy ALGY-Swell Verified 08/08/21 14:14 Lip/Tongue/Throat PFSH Acute PFSH: Medical History (HFpEF) heart failure with preserved ejection fraction Abdominal ascites Abdominal distention Abnormality of rib determined by X-ray Acute diastolic CHF (congestive heart failure) Anasarca Anemia Anxiety with depression Arteriovenous fistula for hemodialysis in place, secondary Ascites Atherosclerosis of coronary artery Chronic abdominal pain Congestive heart failure COPD (chronic obstructive pulmonary disease) COPD (chronic obstructive pulmonary disease) COVID 05/25 Current smoker Degenerative disc disease, lumbar End-stage renal disease on hemodialysis Gross hematuria Hemoptysis Hepatomegaly Hyperkalemia Hypertension Hypertensive emergency Ileus PHT (pulmonary hypertension) Pulmonary embolism 09/21 Inconclusive for very tiny peripheral LEFT lower lobe pulmonary artery sub segmental emboli versus poor opacification. Right heart failure with reduced right ventricular function Smoking addiction Transaminitis Urethral stricture Surgical History H/O hand surgery Amputation right 2&3 fingers 2017 History of adenoidectomy Stented coronary artery Family History Father No problems noted. Other Hypertension Social History Smoking and tobacco status: never smoked Alcohol intake: never Marital status: Number of children: 3 Current occupational status: disabled History of recent travel: No Vitals/I&O/Wt Last Vital Signs Temp 98.0 F 08/12/21 03:50 Pulse 98 08/12/21 06:49 Resp 20 H 08/12/21 07:11 BP 152/90 08/12/21 07:11 Pulse Ox 96 08/12/21 07:11 Weight last 48 hrs Weight 79.379 kg Physical Exam Narrative: confused, comfortable in bed vs noted heent- nc/at, eomi, anicteric neck supple lungs dull bases heart reg abd soft, nt, ascites, + bs ext b/l edema LUE AVG w/ thrill/ bruit neuro- a,a, o x 1-2 Data : 08/12/21 04:00 08/12/21 04:36 A&P Assessment and plan (1) ESRD on dialysis: 40 yr old man 1. ESRD- HD now- 3.5 hrs, 3k, remove 3.5l 2. htn- i am concerned that pt does not take all of his meds at home- monitor bp 3. pna per medicine 4. ?s/p Cardiac cath and stent of OM on 07-24-21. echo-?Normal left ventricular cavity size. Moderate left ventricular ?hypertrophy. Normal left ventricular systolic function. Left ?ventricular ejection fraction is estimated at 60 %. Grade II/IV ?diastolic dysfunction, moderately elevated filling pressures. -small pericardial effusion 5. Renal- bone- mineral metabolism- -phos normal - zemplar w/ hd 6. DM- monitor for high and low glucose 7. anemia- po iron and TREY as needed 8. hyponatremia - monitor w/ HD 9. SANDY- CPAP per medicine. -per ER charts- pt did not meet qualifications for home 02 seen and examined w/ RN- telehealth visit time spent 50 min informed consent obtained for telehealth Status: Acute Plan HD now Consult Attestations Medical Necessity Statement: sob Time Spent in Patient Care: Greater than 35 minutes (>than 50% of time spent in counselling and/or direct pt care on unit). Coding Level of Care Code Acute Electronic Warfare Specialist for Chg Fwd Diagnoses ESRD on dialysis N18.6; Z99.2
[2021-08-12 08:12] LABS: Ammonia 25 umol/L (16-60)
[2021-08-12 08:22] LABS: Iron 29 ug/dL (59-158); Percent Saturation 12.8 % (20-50); Total Iron Binding Capacity 226 mcg/dl; Unsaturated Iron Binding 197 ug/dL (112-347)
[2021-08-12 08:34] LABS: Ferritin 1071 ng/mL (30-400)
[2021-08-12] MEDS: quetiapine 25 mg Tablet PO (08:54)
[2021-08-12] MEDS: amlodipine 10 mg Tablet PO (08:54)
[2021-08-12] MEDS: carvedilol 25 mg Tablet PO ×2 (08:54→18:18)
[2021-08-12] MEDS: cloNIDine 0.1 mg Tablet PO (08:54)
[2021-08-12] MEDS: b-complex-vitamin c Tablet 1 EACH PO (08:54)
[2021-08-12] MEDS: isosorbide mononitrate ER 60 mg Tablet PO ×2 (08:54→20:44)
[2021-08-12] MEDS: clopidogrel 75 mg Tablet PO (08:55)
[2021-08-12] MEDS: heparin 5,000 unit/mL INJ 1 mL 5000 UNIT SUBCUT ×2 (08:55→20:45)
[2021-08-12] MEDS: aspirin 81 mg EC Tablet PO (08:55)
[2021-08-12 09:41] LABS: Hepatitis B Surface AB 962.3 (11.5-1000); Hepatitis B Surface Antigen Non-Reactive (Nonreactive); Hepatitis C Virus Antibody Non-Reactive (Nonreactive)
--- NOTE | 2021-08-12 09:45 | PC.CHAP ---
Pastoral Care Encounter/Spiritual Assessment Type of Contact [] Declined consumer insights specialist visit [] Patient/Family/Request visit [] Outpatient visit [] Follow-up visit [] Physician referral [] Code/Alert [x] Routine visit [] Staff referral [] Actively dying [x] Patient sleeping [] Family support [] [] Out of room [] Palliative care [] [x] Receiving care in room [] Pre-surgical visit [] Trauma [] Long length of stay [x] ICU visit [] Other: Relational/Emotional Strength [] Patient feels connected with others/family/visitors/staff [] Distress [] Loneliness/isolation [] Abandonment Spirituality of Patient [] Person of Ct [] Attends Oriental Orthodox of their Ct [] Believes in Prayer [] Reads Bible or Scientology materials [] There are Spiritual issues to be addressed Sales Utility Representative Interventions [x] Prayer [] Active listening [] Non-anxious presence [] Spiritual/emotional support [] Crisis/trauma care [] Spiritual counseling [] Bereavement support [] Provided bereavement packet [] Provided Bible/devotional materials [] Provided toy/stuffed animal, coloring book to patient or family member [] Provided Communion [] Anointing/[place] [] Salvation [x] Completed spiritual assessment [] Other: Impact on Illness or Injury [] Angry [] Fearful [] Anxious [] Often cries [] Exhaustion [] Unable to work [] Unable to attend islam [] Unable to walk/stand [] Unable to read [] Unable to drive [] Unable to eat/drink [] Unable to sleep [] Unable to be with family [] Patient intubated [] Other: Summary Time spent with patient
--- NOTE | 2021-08-12 09:46 | ECG_ITS ---
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 Measurements Intervals [place] Rate: 75 P: 39 ME: 205 QRS: 88 QRSD: 110 T: 91 QT: 432 QTc: 483 Interpretive Statements SINUS RHYTHM POSSIBLE LEFT ATRIAL ENLARGEMENT [-0.1mV P-WAVE IN V1/V2] NONSPECIFIC T-WAVE ABNORMALITY Compared to ECG 08/12/2021 03:52:54 T-wave abnormality now present Intraventricular conduction delay no longer present Electronically Signed On 08-12-2021 23:06:19 CDT by Ruba Hussein M.D. [id number]
[2021-08-12] MEDS: minoxidil 10 mg Tablet 5 MG PO ×2 (09:54→20:44)
[2021-08-12 11:03] LABS: Troponin 5 6HR Delta -5.3 ng/L (0-12)
[2021-08-12 11:05] LABS: Troponin 5 6HR 104.7 ng/L (0-15)
--- NOTE | 2021-08-12 12:19 | ECG_ITS ---
[facility] Test Date: 2021-08-12 Pat Name: Mal Gibbs Department: Room: ICU11 Gender: Male Vp Business Development: : 1980 Requested By: Jeanette Hernandez Order Number: [id number] Mohini MD: Ruba Hussein M.D. Measurements Intervals [place] Rate: 76 P: HI: QRS: 26 QRSD: 114 T: 120 QT: 421 QTc: 475 Interpretive Statements Normal sinus rhythm Possible left atrial enlargement MODERATE INTRAVENTRICULAR CONDUCTION DELAY [110+ ms QRS DURATION] NONSPECIFIC T-WAVE ABNORMALITY Compared to ECG 08/12/2021 07:16:08 Intraventricular conduction delay now present Sinus rhythm no longer present T-wave abnormality still present Electronically Signed On 08-12-2021 23:12:53 CDT by Ruba Hussein M.D. [id number]
--- NOTE | 2021-08-12 12:27 | PC.PHAR ---
pt unable to verify medications-pts verified medications-notes are made in the pharmacy comments
--- NOTE | 2021-08-12 16:17 | PC.NURSE ---
Clarified 50mg PO Q8 hydralazine for patient with blood pressure 142/75. Dr. Amin confirmed to hold med.
--- NOTE | 2021-08-12 18:10 | XRR_ITS ---
PROCEDURE INFORMATION: Exam: XR Abdomen Exam date and time: 08/12/2021 7:06 PM Age: 40 years old Clinical indication: Abdominal pain TECHNIQUE: Imaging protocol: XR of the abdomen. Views: Frontal supine view of the abdomen. 1 View. COMPARISON: CT abdomen pelvis w con* [id number] 07/07/2021 6:41 AM FINDINGS: Pleural space: There are bilateral pleural effusions. Gastrointestinal tract: The bowel gas pattern is nonobstructive. Intraperitoneal space: There is increased hazy opacity throughout the abdomen consistent with large volume ascites. Bones/joints: Unremarkable. XR/XR abdomen 1V* [id number] IMPRESSION: 1. Large volume ascites. 2. Bilateral pleural effusions.
[2021-08-12] MEDS: acetaminophen 325 mg Tablet 650 MG PO (18:22)
[2021-08-12 19:09] LABS: D Dimer 12.07 ug/mIFEU (0-0.59)
[2021-08-12] MEDS: atorvastatin 40 mg Tablet PO (20:45)
[2021-08-12] MEDS: TRAMadol 50 mg Tablet PO (21:16)
[2021-08-13] VITALS (76 sets, daily range): BP systolic 130–185; BP diastolic 69–110; PULSE 72–94; RESP 0–28; TEMP 36.3–36.5; O2SAT 82–97
[2021-08-13] MEDS: hyDRALAzine 50 mg Tablet PO ×2 (00:48→07:20)
[2021-08-13 00:58] LABS: Adenovirus Not Detected (NOT DETECT); Chlamydia Pneumoniae Not Detected (NOT DETECT); Coronavirus 229E,HKU1,NL63,OC4 Not Detected (NOT DETECT); Human Metapneumovirus Not Detected (NOT DETECT); Human Rhinovirus/Enterovirus Not Detected (NOT DETECT); Influenza A Not Detected (NOT DETECT); Influenza A H1 Not Detected (NOT DETECT); Influenza A H1-2009 Not Detected (NOT DETECT); Influenza A H3 Not Detected (NOT DETECT); Influenza B Not Detected (NOT DETECT); Mycoplasma Pneumoniae Not Detected (NOT DETECT); Parainfluenza Virus Type 1 Not Detected (NOT DETECT); Parainfluenza Virus Type 2 Not Detected (NOT DETECT); Parainfluenza Virus Type 3 Not Detected (NOT DETECT); Parainfluenza Virus Type 4 Not Detected (NOT DETECT); Respiratory Syncytial Virus A Not Detected (NOT DETECT); Respiratory Syncytial Virus B Not Detected (NOT DETECT); SARS-COV-2 Not Detected (NOT DETECT)
[2021-08-13 03:57] LABS: ABG PH Result 7.41 (7.35-7.45); Arterial Blood Gas Hematocrit 31.9 % (42-52); Base Excess ABG 4.4 mmol/L (-2.0-2.0); Blood Gas Allen Test Pos; Blood Gas Sample Site Radial, right; Blood Gas Sample Type Arterial; HCO3 ABG 29.8 mmol/L (22-26); Oxygen Device BIPAP
[2021-08-13 04:44] LABS: Basophils # 0.1 10^3/uL (0.0-0.1); Basophils % 1.5 %; Eosinophils # 0.5 10^3/uL (0.0-0.8); Eosinophils % 9.2 %; Hematocrit 27.5 % (42.0-52.0); Hemoglobin 8.6 g/dL (11.7-16.6); Lymphocytes # 0.7 10^3/uL (0.8-4.8); Lymphocytes % 12.3 %; Mean Corpuscular HGB Conc 31.3 g/dL (30.0-36.0); Mean Corpuscular Hemoglobin 29.5 pg (28.0-34.0); Mean Corpuscular Volume 94.2 fl (80-94); Mean Platelet Volume 10.2 fL (7.4-10.4); Monocytes # 0.5 10^3/uL (0.2-0.9); Monocytes % 9.4 %; Neutrophils # 3.57 10^3/uL (1.8-7.7); Neutrophils % 67.4 %; Nucleated Red Blood Cells % 0 %; Platelet Count 161 10^3/cmm (130-400); Red Blood Count 2.92 10^6/uL (4.1-5.3); Red Cell Distribution Width 18.4 % (12.1-15.1); White Blood Count 5.3 10^3/uL (4.0-10.0)
[2021-08-13 06:07] LABS: Alanine Aminotransferase < 5 U/L (0-41); Albumin Level 3.5 g/dL (3.5-5.2); Alkaline Phosphatase 131 IU/L (40-130); Anion Gap 19.4 (5-19); Aspartate Amino Transferase 11 U/L (0-40); Blood Urea Nitrogen 35 mg/dL (6-20); Calcium 9.7 mg/dL (8.5-10.5); Carbon Dioxide 25 mmol/L (22-29); Chloride 98 mmol/L (98-107); Globulin 3.2 g/dL (1.3-4.6); Glucose 71 mg/dL (65-115); Magnesium 2.2 mg/dL (1.7-2.3); Osmolality Calculated 290 mOsm/kg (285-295); Phosphorus 7.3 mg/dL (2.5-4.5); Potassium 5.4 mmol/L (3.5-5.1); Sodium 137 mmol/L (136-145); Total Bilirubin 0.7 mg/dL (0.15-1.2); Total Protein 6.7 g/dL (6.6-8.7)
[2021-08-13] MEDS: heparin 5,000 unit/mL INJ 1 mL 5000 UNIT SUBCUT (07:20)
[2021-08-13] MEDS: isosorbide mononitrate ER 60 mg Tablet PO (07:20)
[2021-08-13] MEDS: aspirin 81 mg EC Tablet PO (08:11)
[2021-08-13] MEDS: cloNIDine 0.1 mg Tablet PO (08:11)
[2021-08-13] MEDS: carvedilol 25 mg Tablet PO (08:11)
[2021-08-13] MEDS: b-complex-vitamin c Tablet 1 EACH PO (08:11)
[2021-08-13] MEDS: minoxidil 10 mg Tablet 5 MG PO (08:11)
[2021-08-13] MEDS: quetiapine 25 mg Tablet PO (08:11)
[2021-08-13] MEDS: clopidogrel 75 mg Tablet PO (08:11)
[2021-08-13] MEDS: amlodipine 10 mg Tablet PO (08:11)
--- NOTE | 2021-08-13 10:32 | PC.NURSE ---
0837 Off unit- Patient in dialysis MS room 274 with Paula at 0837.
--- NOTE | 2021-08-13 10:57 | P.PN_ITS ---
Subjective Subjective: Mr. Gibbs is seen and examined on hemodialysis today. He is doing well. Tolerating the therapy well. Blood pressure and pulse look good. No other acute new issues, he is awake, lucid, conversant. Vitals/I&O/Wt Last Vital Signs Temp 97.7 F 08/13/21 07:30 Pulse 94 08/13/21 08:25 Resp 17 08/13/21 08:25 BP 176/99 08/13/21 08:25 Pulse Ox 89 L 08/13/21 08:25 08/12/21 08/13/21 08/13/21 22:59 06:59 14:59 Intake Total 480 / 702 222 / 222 Balance 480 / 702 222 / 222 Weight last 48 hrs Weight 80.286 kg Weight 79.379 kg Weight 79.379 kg Data : 08/13/21 04:30 08/13/21 04:30 A&P Assessment and plan (1) ESRD on dialysis: 40 yr old man 1. ESRD Seen and examined on HD, cont MWF schedule after today Likely DC late toray 2. htn - good control today 3. pna per medicine - relatively asymptomatic from this perspective 4. ?s/p Cardiac cath and stent of OM on 07-24-21. echo-?Normal left ventricular cavity size. Moderate left ventricular ?hypertrophy. Normal left ventricular systolic function. Left ?ventricular ejection fraction is estimated at 60 %. Grade II/IV ?diastolic dysfunction, moderately elevated filling pressures. -small pericardial effusion 5. Renal- bone- mineral metabolism- -phos normal - zemplar w/ hd 6. DM- monitor for high and low glucose 7. anemia- po iron and TREY as needed 8. hyponatremia - monitor w/ HD 9. SANDY- CPAP per medicine. -per ER charts- pt did not meet qualifications for home 02 seen and examined w/ RN- telehealth visit time spent 10 mins ok for DC after dialysis today Status: Acute Plan HD now Attestations Medical Necessity Statement*: eval for ESRD Coding Level of Care Code Acute Surface Miner for Cristi Diane Diagnoses ESRD on dialysis N18.6; Z99.2
--- NOTE | 2021-08-13 12:14 | PC.NURSE ---
Patient back in room from dialysis.
--- NOTE | 2021-08-13 14:12 | PM.DCS ---
Discharge Providers Date of Admission: 08/12/21 05:44 Date of Discharge: August 13, 2021 Attending Provider at Admission: Jeanette Hernandez DO Attending Provider at Discharge: Brigitte Amin MD Primary Care Provider: Mal Peres DO Diagnoses at Discharge Discharge Diagnosis (1) ESRD on dialysis: Status: Acute Reason for Visit Reason for Visit: SOB Brief History: HPI as per Dr. Hernandez The patient is a 40-year-old male who presents with chief complaint of dyspnea.? Please note, the patient is stuporous during the course of my encounter and he requires frequent arousal.? He is minimally cooperative and provides vague answers.? He does not appear to be forthcoming regarding his past medical history.? Unfortunately because of this, I am unable to obtain further history of present illness.? He presents for further evaluation Hospital Course Hospital Course Patient was admitted for fluid overload and suspected medical noncompliance with dialysis. He was also short of breath on admission. CTA was done which ruled out PE. COVID-19 was also negative. Patient was dialyzed twice with 3.5 L removed 1 day and another 3 L removed the next day. Patient felt back to baseline and therefore was discharged. I did not suspect a pneumonia. Patient was already on Augmentin from home and was to continue that prescription and finish his 14-day course. Patient also had an appointment on for paracentesis on 08/15 which he will be going to as an outpatient. Patient also has an appointment with his primary care doctor on 08/15 which he will be attending. Patient significant other was present at bedside at time of discharge and the whole plan was gone over with them in detail. Home oxygen evaluation was also done during hospital stay and patient did not qualify for home oxygen. He was given referral to pulmonology clinic for possible sleep study as patient's oxygen dropped during the time he is sleeping. Patient significant other states that patient does have sleep apnea but did not have a CPAP machine. They are unsure if he has had a sleep study in the past. Patient feels well to go home today and has no complaints of shortness of breath or chest pain and feels back to baseline. Physical Exam Narrative: General: Alert oriented x3, patient seen during dialysis in the morning. HEENT: Normocephalic, atraumatic, EOMI, breathing normally. He is on 2 L nasal cannula at this time. Cardio: Normal S1-S2, no apparent murmurs Respiratory: Diminished bilateral air entry but clear to auscultation with bilateral mild crackles at the bases. Actively getting dialyzed at the time of exam. GI: Abdomen soft, nontender, distended secondary to ascites, bowel sounds + Behavior: Appropriate and cooperative Extremities: No lower extremity edema noted. Discharge Data Studies Completed and Pending Completed Studies During Hospitalization Category Date Time Status XR abdomen 1V* [id number] Routine Exams 08/12/21 18:10 Completed XR chest 1V portable [id number] Urgent Exams 08/12/21 03:41 Completed Pending at discharge Category Date Time Status Complete Blood Count w/Auto AM LABS Lab 08/14/21 04:00 Ordered Complete Blood Count w/Auto AM LABS Lab 08/15/21 04:00 Ordered Comprehensive Metabolic Panel AM LABS Lab 08/14/21 04:00 Ordered Comprehensive Metabolic Panel AM LABS Lab 08/15/21 04:00 Ordered Fecal Occult Blood [Immunochemical Fecal OCB] Routine Lab 08/12/21 08:08 Uncollected Magnesium AM LABS Lab 08/14/21 04:00 Ordered Magnesium AM LABS Lab 08/15/21 04:00 Ordered Phosphorus AM LABS Lab 08/14/21 04:00 Ordered Phosphorus AM LABS Lab 08/15/21 04:00 Ordered Radiology Impressions Chest X-Ray 08/12/21 03:41 IMPRESSION: Continued prominently enlarged heart size. Suspicion of interval worsening of pulmonary edema; interval early pneumonia in the right lung base not excluded. Interval increase in the small right pleural effusion. Abdomen X-Ray 08/12/21 18:10 IMPRESSION: 1. Large volume ascites. 2. Bilateral pleural effusions. Laboratory Results WBC 5.3 10^3/uL (4.0-10.0) 08/13/21 04:30 RBC 2.92 10^6/uL (4.1-5.3) L 08/13/21 04:30 Hgb 8.6 g/dL (11.7-16.6) L 08/13/21 04:30 Hct 27.5 % (42.0-52.0) L 08/13/21 04:30 MCV 94.2 fl (80-94) H 08/13/21 04:30 MCH 29.5 pg (28.0-34.0) 08/13/21 04:30 MCHC 31.3 g/dL (30.0-36.0) 08/13/21 04:30 RDW 18.4 % (12.1-15.1) H 08/13/21 04:30 Plt Count 161 10^3/cmm (130-400) 08/13/21 04:30 MPV 10.2 fL (7.4-10.4) 08/13/21 04:30 Neut % (Auto) 67.4 % 08/13/21 04:30 Lymph % (Auto) 12.3 % 08/13/21 04:30 Wilkes % (Auto) 9.4 % 08/13/21 04:30 Eos % (Auto) 9.2 % 08/13/21 04:30 Baso % (Auto) 1.5 % 08/13/21 04:30 Neut # (Auto) 3.57 10^3/uL (1.8-7.7) 08/13/21 04:30 Lymph # (Auto) 0.7 10^3/uL (0.8-4.8) L 08/13/21 04:30 Wilkes # (Auto) 0.5 10^3/uL (0.2-0.9) 08/13/21 04:30 Eos # (Auto) 0.5 10^3/uL (0.0-0.8) 08/13/21 04:30 Baso # (Auto) 0.1 10^3/uL (0.0-0.1) 08/13/21 04:30 Nucleated RBC % (auto) 0 % 08/13/21 04:30 Nucleated RBCs # 0.0 /100WBC 08/13/21 04:30 D-Dimer 12.07 ug/mIFEU (0-0.59) H 08/12/21 18:35 Specimen Type Arterial 08/13/21 04:00 Sample Site Radial, right 08/13/21 04:00 ABG pH 7.41 (7.35-7.45) 08/13/21 04:00 ABG pCO2 47.0 mmHg (35-45) H 08/13/21 04:00 ABG pO2 72.0 mmHg (80.0-100.0) L 08/13/21 04:00 ABG HCO3 29.8 mmol/L (22-26) H 08/13/21 04:00 ABG Base Excess 4.4 mmol/L (-2.0-2.0) H 08/13/21 04:00 Alexei Test Pos 08/13/21 04:00 Hematocrit 31.9 % (42-52) L 08/13/21 04:00 O2 Delivery Device Bipap 08/13/21 04:00 O2 Liters/Min 3.0 % 08/12/21 03:54 FiO2 40.0 % 08/13/21 04:00 Biomass Technician ID [email or web address] 08/13/21 04:00 Sodium 137 mmol/L (136-145) 08/13/21 04:30 Potassium 5.4 mmol/L (3.5-5.1) H 08/13/21 04:30 Chloride 98 mmol/L (98-107) 08/13/21 04:30 Carbon Dioxide 25 mmol/L (22-29) 08/13/21 04:30 Anion Gap 19.4 (5-19) H 08/13/21 04:30 BUN 35 mg/dL (6-20) H 08/13/21 04:30 Creatinine 5.8 mg/dL (0.7-1.2) H* 08/13/21 04:30 GFR Calculation 11.0 mL/min (90-130) L 08/13/21 04:30 Glucose 71 mg/dL (65-115) 08/13/21 04:30 Calculated Osmolality 290 mOsm/kg (285-295) 08/13/21 04:30 Calcium 9.7 mg/dL (8.5-10.5) 08/13/21 04:30 Phosphorus 7.3 mg/dL (2.5-4.5) H 08/13/21 04:30 Magnesium 2.2 mg/dL (1.7-2.3) 08/13/21 04:30 Iron 29 ug/dL (59-158) L 08/12/21 07:45 TIBC 226 mcg/dl 08/12/21 07:45 % Saturation 12.8 % (20-50) L 08/12/21 07:45 Unsat Iron Binding 197 ug/dL (112-347) 08/12/21 07:45 Ferritin 1071 ng/mL (30-400) H 08/12/21 07:45 Total Bilirubin 0.7 mg/dL (0.15-1.2) 08/13/21 04:30 AST 11 U/L (0-40) 08/13/21 04:30 ALT < 5 U/L (0-41) 08/13/21 04:30 Alkaline Phosphatase 131 IU/L (40-130) H 08/13/21 04:30 Ammonia 25 umol/L (16-60) 08/12/21 07:45 Troponin T Baseline 110 ng/L (0-15) H* 08/12/21 04:36 Troponin T 120 Minute 98.52 ng/L (0-15) H 08/12/21 06:11 Delta Troponin T -11.48 ABS# (0-10) L 08/12/21 06:11 Troponin T Hi Sens 6Hr 104.7 ng/L (0-15) H 08/12/21 10:32 Troponin T Hi Sens 6Hr Delta -5.3 ng/L (0-12) L 08/12/21 10:32 NT-Pro-B Natriuret Pep 13231 pg/mL (0-125) H 08/12/21 04:36 Total Protein 6.7 g/dL (6.6-8.7) 08/13/21 04:30 Albumin 3.5 g/dL (3.5-5.2) 08/13/21 04:30 Globulin 3.2 g/dL (1.3-4.6) 08/13/21 04:30 Coronavirus 229E (PCR) Not detected (NOT DETECT) 08/12/21 23:00 Hep Bs Antigen Non-reactive (Nonreactive) 08/12/21 08:44 Hep Bs Antibody 962.3 (11.5-1000) 08/12/21 08:44 Hepatitis C Antibody Non-reactive (Nonreactive) 08/12/21 08:44 SARS-CoV-2 (PCR) Not detected (NOT DETECT) 08/12/21 23:00 Vitals Last Vital Signs Temp 97.7 F 08/13/21 07:30 Pulse 81 08/13/21 14:02 Resp 14 08/13/21 12:15 BP 131/70 08/13/21 12:15 Pulse Ox 93 08/13/21 12:54 Discharge Plan Discharge Patient Disposition: Home Condition: Stable Prescriptions: Continued Incruse Ellipta 62.5 mcg/actuation blister with device 1 inh INHALATION DAILY Qty: 30 2RF quetiapine [Seroquel] 25 mg tablet 25 mg PO DAILY Qty: 30 1RF albuterol sulfate 2.5 mg /3 mL (0.083 %) solution for nebulization 2.5 mg inhalation BID Qty: 15 2RF albuterol sulfate [ProAir HFA] 90 mcg/actuation HFA aerosol inhaler 2 puff INHALATION QID PRN (Reason: Shortness Of Breath) Qty: 2 4RF nicotine 14 mg/24 hr patch 24 hour 1 patch transdermal DAILY Qty: 14 2RF cyclobenzaprine 10 mg tablet 10 mg PO Q12H PRN (Reason: muscle spasm) Qty: 30 0RF amoxicillin-pot clavulanate 875-125 mg tablet 1 tab PO Q12H 7 Days Qty: 14 0RF amlodipine 10 mg tablet 10 mg PO DAILY 30 Days Qty: 30 0RF pantoprazole 40 mg tablet,delayed release (DR/EC) 40 mg PO DAILY 0RF Xifaxan 550 mg tablet 550 mg PO BID 0RF aspirin 81 mg Tablet,Delayed Release (Dr/Ec) 81 mg PO DAILY Qty: 30 0RF atorvastatin 40 mg Tablet 40 mg PO BEDTIME Qty: 30 0RF clonidine HCl 0.1 mg Tablet 0.1 mg PO BID Qty: 60 0RF clopidogrel 75 mg Tablet 75 mg PO DAILY Qty: 30 0RF carvedilol 25 mg tablet 25 mg PO BID 30 Days Qty: 60 0RF hydralazine 50 mg Tablet 50 mg PO Q8H 30 Days Qty: 120 0RF isosorbide mononitrate 60 mg tablet extended release 24 hr 60 mg PO DAILY 0RF minoxidil 10 mg tablet 10 mg PO BID 0RF fluticasone propionate 50 mcg/actuation spray,suspension 2 spray INTRANASAL DAILY PRN (Reason: Allergy Symptoms) 0RF sevelamer carbonate [Renvela] 800 mg tablet See Rx Instructions .ROUTE .COMPLEX 0RF Rx Instructions: 4 tabs po tid with meals and one tab bid with snacks nitroglycerin 0.4 mg tablet, sublingual 0.4 mg sublingual Q5M PRN (Reason: chest pain) 30 Days Qty: 30 0RF Rx Instructions: do not exceed 3 doses per episode doxycycline hyclate 100 mg tablet 100 mg PO BID 8 Days Qty: 16 0RF Discharge Orders: Discharge Order (Routine); Ordered 08/13/21 Ordered By: Brigitte Amin Referrals: Mal Peres DO [Primary Care Provider] - 08/20/21 1:00 pm Datar,Sanchez Lemus MD [Physician] - 09/26/21 1:45 pm (COPD) Discharge Diet: Usual diet and Low Salt Discharge Activity: Resume usual activity Patient Instructions: Hypertension, Heart Failure (DC), Dialysis Diet (DC), Ascites (DC), DASH Eating Plan (DC), Low-Sodium Diet (DC), Hemodialysis for Acute Kidney Failure (DC), Opioid Safety Activity Restrictions/Additional Instructions: Renal Diet Please follow up for your existing appointment for paracentesis on august 15. Discharge Attestations Time Spent in Discharge Care*: less than 30 min Status at Discharge: Cognitive status at discharge: cognitively intact, Behavioral status at discharge: cooperative, Quality Metrics Clinical Quality Measures [ No reported AMI, CVA or VTE this stay] Coding Level of Care Code Acute Chg FW DC note Diagnoses ESRD on dialysis N18.6; Z99.2
--- NOTE | 2021-08-13 15:30 | PC.NURSE ---
Discharge- Patient and family member in room received discharge education, CHF, ESRD, Diet and activity, home medications, and follow up appointments. All patient questions answered. No further questions from patient or family. Written education provided as well. Patient transported via wheelchair to [facility] parking lot, patient left with family via personal vehicle.
== END 2021-08-13 15:20 | disposition home or self-care (01) | DRG 291 ==
LOC: ER 05:58 → ICU 06:42
PROVIDERS: Internal Medicine; Internal Medicine Nephrology; Admitting Provider Internal Medicine; Emergency Provider Emergency Medicine; PCP Family Medicine; Visit Provider Internal Medicine
DX: I13.2 Hypertensive heart and chronic kidney disease with heart failure and with stage 5 chronic kidney disease, or end stage renal disease (principal); N18.6 End stage renal disease; I50.33 Acute on chronic diastolic (congestive) heart failure; E87.1 Hypo-osmolality and hyponatremia; Z99.2 Dependence on renal dialysis; Z91.15 Patient's noncompliance with renal dialysis; Z86.16 Personal history of COVID-19; F17.210 Nicotine dependence, cigarettes, uncomplicated; J44.9 Chronic obstructive pulmonary disease, unspecified; E21.3 Hyperparathyroidism, unspecified; I27.20 Pulmonary hypertension, unspecified; D63.1 Anemia in chronic kidney disease; I25.10 Atherosclerotic heart disease of native coronary artery without angina pectoris; Z95.5 Presence of coronary angioplasty implant and graft; K21.9 Gastro-esophageal reflux disease without esophagitis; Z79.02 Long term (current) use of antithrombotics/antiplatelets; Z79.82 Long term (current) use of aspirin; Z79.51 Long term (current) use of inhaled steroids; G47.33 Obstructive sleep apnea (adult) (pediatric); F32.A Depression, unspecified; E78.5 Hyperlipidemia, unspecified
CPT/HCPCS: 36415; 36600; 71045; 71275; 74018; 74177; 80048; 80051; 80053; 82140; 82330; 82728; 82803; 82805; 83540; 83550; 83605; 83735; 83880; 84100; 84145; 84484; 85025; 85378; 86706; 86803; 87340; 87635; 90935; 93005; 94660; 96365; 96367; 96372; 96374; 96375; 99284; 99291; J0360; J0696; J1644; J2360; J2405; J3370; J3490; J7050; Q3014; Q9967

== ENCOUNTER 2021-08-14 08:40 | Emergency (ER) | payer MEDICARE, MEDICAID, SELFPAY ==
[2021-08-14] VITALS (7 sets, daily range): BP systolic 166–181; BP diastolic 83–100; PULSE 85–90; RESP 18–27; O2SAT 87–95; BMI 25.0
--- NOTE | 2021-08-14 08:49 | ECG_ITS ---
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 Measurements Intervals [place] Rate: 90 P: 30 SC: 172 QRS: 53 QRSD: 117 T: -67 QT: 387 QTc: 476 Interpretive Statements SINUS RHYTHM POSSIBLE LEFT ATRIAL ENLARGEMENT [-0.1mV P-WAVE IN V1/V2] LEFT VENTRICULAR HYPERTROPHY AND ST-T CHANGE [VOLTAGE CRITERIA PLUS ST/T ABNORMALITY] Compared to ECG 08/12/2021 14:00:56 Left ventricular hypertrophy now present ST (T wave) deviation now present Intraventricular conduction delay no longer present T-wave abnormality no longer present Electronically Signed On 08-14-2021 23:17:17 CDT by Ruba Hussein M.D. [id number]
--- NOTE | 2021-08-14 08:49 | XR_ITS ---
WS: [id number] PORTABLE CHEST HISTORY: dyspnea/cough COMPARISON: 08/12/2021 Mildly hyperinflated lungs. Diffuse interstitial thickening and edema. No focal consolidation. Slightly greater atelectasis at th e LEFT lung base. Minimal blunting of the LEFT costophrenic angle. Cardiac size: Moderately enlarged cardiac silhouette. Mediastinum/Aorta: Normal mediastinum. No osseous abnormality seen. XR/XR chest 1V portable [id number] IMPRESSION: Mild diffuse pulmonary edema with cardiomegaly.
[2021-08-14 09:13] LABS: Basophils % 0.7 %; Eosinophils # 0.4 10^3/uL (0.0-0.8); Eosinophils % 8.9 %; Hematocrit 27.3 % (42.0-52.0); Hemoglobin 8.7 g/dL (11.7-16.6); Lymphocytes # 0.3 10^3/uL (0.8-4.8); Lymphocytes % 7.4 %; Mean Corpuscular HGB Conc 31.9 g/dL (30.0-36.0); Mean Corpuscular Hemoglobin 29.2 pg (28.0-34.0); Mean Corpuscular Volume 91.6 fl (80-94); Mean Platelet Volume 9.2 fL (7.4-10.4); Monocytes # 0.3 10^3/uL (0.2-0.9); Monocytes % 6.9 %; Neutrophils % 75.9 %; Nucleated Red Blood Cells % 0 %; Platelet Count 155 10^3/cmm (130-400); Red Blood Count 2.98 10^6/uL (4.1-5.3); Red Cell Distribution Width 18.3 % (12.1-15.1); White Blood Count 4.5 10^3/uL (4.0-10.0)
--- NOTE | 2021-08-14 09:27 | ED_ITS ---
HPI - SOB/Dyspnea General: Chief Complaint: Shortness of Breath/Dyspnea Stated Complaint: DIFFICULTY BREATHING Time Seen by Provider: 08/14/21 08:42 Source: patient Mode of arrival: ambulatory Limitations: no limitations History of Present Illness: HPI Narrative: 40-year-old male presents to the emergency room with complaints of shortness of breath.Patient has end-stage renal disease congestive heart failure and liver disease. He is not a candidate for any kind of liver transplant. He is frequently here and frequently hospitalized. She was just discharged yesterday. Is complaining of shortness of breath this morning he is due for dialysis at 10:00. He is not having any chest pain he is normally on 5 L per nasal cannula here he was able to maintain on 3 L/min on nasal cannula with sats in the low 70s. No chest pain at this time. MD elicited complaint: shortness of breath Pertinent past history: congestive heart failure and other (ESRD) Onset (ago): hour(s) Timing: constant Severity: moderate Exacerbating factors: lying flat and exertion Relieving factors: oxygen, rest and upright position Known history of: congestive heart failure and other (ESRD) Associated symptoms: Reports chest congestion and orthopnea; Deny abdominal pain, chest pain, cough, diaphoresis, dizziness, extremity pain, fever(s), hemoptysis, lightheadedness, myalgias, nausea, palpitations, paresthesias, polydipsia, polyuria, rash, sense of impending doom, syncope or vomiting Treatment prior to arrival: oxygen Review of Systems Const: Denies: fever(s), chills or diaphoresis ENMT: Denies: throat pain, ear or mastoid pain, nasal discharge or nasal congestion Card: Reports: edema, swelling of feet/ankles, dyspnea on exertion and orthopnea; Denies: chest pain, palpitations, lightheadedness or syncope Resp: Reports: dyspnea, non-productive cough and chest congestion; Denies: hemoptysis GI: Denies: abdominal pain, nausea or vomiting : Denies: flank pain, dysuria, urinary frequency or urinary urgency Musc: Denies: extremity pain Skin/Breast: Denies: rash or pruritus Neuro: Denies: dizziness Endo: Denies: polyuria or polydipsia PFS ED PFSH: Medical History (HFpEF) heart failure with preserved ejection fraction Abdominal ascites Abdominal distention Abnormality of rib determined by X-ray Acute diastolic CHF (congestive heart failure) Anasarca Anemia Anxiety with depression Arteriovenous fistula for hemodialysis in place, secondary Ascites Atherosclerosis of coronary artery Chronic abdominal pain Congestive heart failure COPD (chronic obstructive pulmonary disease) COPD (chronic obstructive pulmonary disease) COVID 05/25 Current smoker Degenerative disc disease, lumbar End-stage renal disease on hemodialysis Gross hematuria Hemoptysis Hepatomegaly Hyperkalemia Hypertension Hypertensive emergency Ileus PHT (pulmonary hypertension) Pulmonary embolism 09/21 Inconclusive for very tiny peripheral LEFT lower lobe pulmonary artery sub segmental emboli versus poor opacification. Right heart failure with reduced right ventricular function Smoking addiction Transaminitis Urethral stricture Surgical History H/O hand surgery Amputation right 2&3 fingers 2017 History of adenoidectomy Stented coronary artery Family History Father No problems noted. Other Hypertension Social History Smoking and tobacco status: never smoked Alcohol intake: never Marital status: Number of children: 3 Current occupational status: disabled History of recent travel: No Physical Exam Const: GENERAL APPEARANCE: cooperative ORIENTATION/CONSCIOUSNESS: Yes awake, Yes oriented to person, Yes oriented to place and Yes oriented to time HENMT: COMMON NORMALS: normocephalic, atraumatic and hearing grossly normal bilaterally HEAD & SCALP: normocephalic and atraumatic Neck/C-Spine: COMMON NORMALS: no JVD Resp: COMMON NORMALS: No retractions and No use of accessory muscles AUSCULTATION: crackles Cardio: COMMON NORMALS: no JVD, regular rate, regular rhythm and No murmurs present (Cardio) RATE: regular rate RHYTHM: regular rhythm GI: COMMON NORMALS: No hepatosplenomegaly present INSPECTION: Yes abdominal distension AUSCULTATION: Yes normoactive bowel sounds PALPATION: No Guarding due to palpation present (GI), Yes No hepatosplenomegaly present and Yes Ascites present Extremity: COMMON NORMALS: normal to inspection, capillary refill normal and no calf tenderness GENERAL: Yes edema (Chronic lower extremity edema) Neuro: SENSORIUM/ORIENTATION: Yes oriented to person, Yes oriented to place and Yes oriented to time Skin: COMMON NORMALS: no rashes or lesions noted GENERAL SKIN EXAM: no rashes or lesions noted Course Vital Signs: Vital signs: Vital Signs Pulse Rate 88 08/14/21 12:19 Respiratory Rate 18 08/14/21 12:19 Blood Pressure 175/86 08/14/21 12:19 Pulse Oximetry 93 08/14/21 12:19 MDM - SOB/Dyspnea Medical Decision Making Patient well visors liters by nasal cannula he is now resting comfortably. 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 Medical Records I reviewed the patient's medical records. Lab Data I reviewed the patient's lab results. : 08/14/21 09:07 08/14/21 09:07 Labs/Radiology: Radiology Impressions Chest X-Ray 08/14/21 08:49 IMPRESSION: Mild diffuse pulmonary edema with cardiomegaly. Laboratory Results WBC 4.5 10^3/uL (4.0-10.0) 08/14/21 09:07 RBC 2.98 10^6/uL (4.1-5.3) L 08/14/21 09:07 Hgb 8.7 g/dL (11.7-16.6) L 08/14/21 09:07 Hct 27.3 % (42.0-52.0) L 08/14/21 09:07 MCV 91.6 fl (80-94) 08/14/21 09:07 MCH 29.2 pg (28.0-34.0) 08/14/21 09:07 MCHC 31.9 g/dL (30.0-36.0) 08/14/21 09:07 RDW 18.3 % (12.1-15.1) H 08/14/21 09:07 Plt Count 155 10^3/cmm (130-400) 08/14/21 09:07 MPV 9.2 fL (7.4-10.4) 08/14/21 09:07 Neut % (Auto) 75.9 % 08/14/21 09:07 Lymph % (Auto) 7.4 % 08/14/21 09:07 [place] % (Auto) 6.9 % 08/14/21 09:07 Eos % (Auto) 8.9 % 08/14/21 09:07 Baso % (Auto) 0.7 % 08/14/21 09:07 Neut # (Auto) 3.40 10^3/uL (1.8-7.7) 08/14/21 09:07 Lymph # (Auto) 0.3 10^3/uL (0.8-4.8) L 08/14/21 09:07 [place] # (Auto) 0.3 10^3/uL (0.2-0.9) 08/14/21 09:07 Eos # (Auto) 0.4 10^3/uL (0.0-0.8) 08/14/21 09:07 Baso # (Auto) 0.0 10^3/uL (0.0-0.1) 08/14/21 09:07 Nucleated RBC % (auto) 0 % 08/14/21 09:07 Nucleated RBCs # 0.0 /100WBC 08/14/21 09:07 Sodium 138 mmol/L (136-145) 08/14/21 09:07 Potassium 4.3 mmol/L (3.5-5.1) 08/14/21 09:07 Chloride 96 mmol/L (98-107) L 08/14/21 09:07 Carbon Dioxide 28 mmol/L (22-29) 08/14/21 09:07 Anion Gap 18.3 (5-19) 08/14/21 09:07 BUN 31 mg/dL (6-20) H 08/14/21 09:07 Creatinine 5.3 mg/dL (0.7-1.2) H 08/14/21 09:07 GFR Calculation 12.2 mL/min (90-130) L 08/14/21 09:07 Glucose 89 mg/dL (65-115) 08/14/21 09:07 Calculated Osmolality 292 mOsm/kg (285-295) 08/14/21 09:07 Calcium 10.2 mg/dL (8.5-10.5) 08/14/21 09:07 Total Bilirubin 0.8 mg/dL (0.15-1.2) 08/14/21 09:07 AST 15 U/L (0-40) 08/14/21 09:07 ALT 6 U/L (0-41) 08/14/21 09:07 Alkaline Phosphatase 130 IU/L (40-130) 08/14/21 09:07 Total Protein 7.7 g/dL (6.6-8.7) 08/14/21 09:07 Albumin 3.8 g/dL (3.5-5.2) 08/14/21 09:07 Globulin 3.9 g/dL (1.3-4.6) 08/14/21 09:07 Discharge Plan Discharge Patient Disposition: Home Clinical Impression: ESRD on dialysis, COPD (chronic obstructive pulmonary disease), Hypertension, CHF (congestive heart failure) Condition: Stable Prescriptions: No Action Incruse Ellipta 62.5 mcg/actuation blister with device 1 inh INHALATION DAILY Qty: 30 2RF quetiapine [Seroquel] 25 mg tablet 25 mg PO DAILY Qty: 30 1RF albuterol sulfate 2.5 mg /3 mL (0.083 %) solution for nebulization 2.5 mg inhalation BID Qty: 15 2RF albuterol sulfate [ProAir HFA] 90 mcg/actuation HFA aerosol inhaler 2 puff INHALATION QID PRN (Reason: Shortness Of Breath) Qty: 2 4RF nicotine 14 mg/24 hr patch 24 hour 1 patch transdermal DAILY Qty: 14 2RF cyclobenzaprine 10 mg tablet 10 mg PO Q12H PRN (Reason: muscle spasm) Qty: 30 0RF amoxicillin-pot clavulanate 875-125 mg tablet 1 tab PO Q12H 7 Days Qty: 14 0RF amlodipine 10 mg tablet 10 mg PO DAILY 30 Days Qty: 30 0RF pantoprazole 40 mg tablet,delayed release (DR/EC) 40 mg PO DAILY 0RF Xifaxan 550 mg tablet 550 mg PO BID 0RF aspirin 81 mg Tablet,Delayed Release (Dr/Ec) 81 mg PO DAILY Qty: 30 0RF atorvastatin 40 mg Tablet 40 mg PO BEDTIME Qty: 30 0RF clonidine HCl 0.1 mg Tablet 0.1 mg PO BID Qty: 60 0RF clopidogrel 75 mg Tablet 75 mg PO DAILY Qty: 30 0RF carvedilol 25 mg tablet 25 mg PO BID 30 Days Qty: 60 0RF hydralazine 50 mg Tablet 50 mg PO Q8H 30 Days Qty: 120 0RF isosorbide mononitrate 60 mg tablet extended release 24 hr 60 mg PO DAILY 0RF minoxidil 10 mg tablet 10 mg PO BID 0RF fluticasone propionate 50 mcg/actuation spray,suspension 2 spray INTRANASAL DAILY PRN (Reason: Allergy Symptoms) 0RF sevelamer carbonate [Renvela] 800 mg tablet See Rx Instructions .ROUTE .COMPLEX 0RF Rx Instructions: 4 tabs po tid with meals and one tab bid with snacks nitroglycerin 0.4 mg tablet, sublingual 0.4 mg sublingual Q5M PRN (Reason: chest pain) 30 Days Qty: 30 0RF Rx Instructions: do not exceed 3 doses per episode doxycycline hyclate 100 mg tablet 100 mg PO BID 8 Days Qty: 16 0RF Discharge Orders: Discharge ED (Routine); Ordered 08/14/21 Ordered By: Pato Rivera Other Ambulatory Orders: DME: Oxygen (Order) Location: None Selected Ordered By: Pato Rivera Referrals: Mal Peres DO [Primary Care Provider] - Discharge Diet: Usual diet Discharge Activity: Resume usual activity Patient Instructions: Opioid Safety Activity Restrictions/Additional Instructions: Proceed directly to dialysis from the emergency room. Follow-up with Dr. Perez within the next 2 days. Coding Level of Care Code ED Turret Lathe Set Up Operator for Cristi Fwchloé Exam Comprehensive
--- NOTE | 2021-08-14 09:28 | PC.NURSE ---
Patient in bed, manager telemarketing placed on patient. Patient comes today via EMS from urgent care for shortness of breath. Patient here recently for same thing per patient. Patient on 2 L nc at this time. Patient denies any needs, call light within reach.
[2021-08-14 09:54] LABS: Alanine Aminotransferase 6 U/L (0-41); Albumin Level 3.8 g/dL (3.5-5.2); Alkaline Phosphatase 130 IU/L (40-130); Anion Gap 18.3 (5-19); Aspartate Amino Transferase 15 U/L (0-40); Blood Urea Nitrogen 31 mg/dL (6-20); Calcium 10.2 mg/dL (8.5-10.5); Carbon Dioxide 28 mmol/L (22-29); Chloride 96 mmol/L (98-107); Globulin 3.9 g/dL (1.3-4.6); Glomerular Filtration Rate 12.2 mL/min (90-130); Glucose 89 mg/dL (65-115); Osmolality Calculated 292 mOsm/kg (285-295); Potassium 4.3 mmol/L (3.5-5.1); Sodium 138 mmol/L (136-145); Total Bilirubin 0.8 mg/dL (0.15-1.2); Total Protein 7.7 g/dL (6.6-8.7)
--- NOTE | 2021-08-14 11:02 | PC.NURSE ---
Called [facility], patient's for ride to dialysis. Patient states Tia can be reached at [phone]. This RN called, no answer.
--- NOTE | 2021-08-14 11:08 | PC.NURSE ---
Spoke with patient he states that the number previously listed is the only number to reach [facility] at. He states she is probably at her job interview. This RN has attempted to call [facility]ia x2 no answer.
--- NOTE | 2021-08-14 11:29 | PC.NURSE ---
third attempt made to reach patient ride from [facility], no contact made, patient denies permission to call uber or taxi service.
--- NOTE | 2021-08-14 11:31 | PC.NURSE ---
Spoke with dialysis center, they were asking when patient would be arriving, notified them we are trying to arrange a ride at this time.
== END 2021-08-14 12:22 | disposition home or self-care (01) ==
PROVIDERS: Emergency Provider Family Medicine; PCP Family Medicine
DX: I13.2 Hypertensive heart and chronic kidney disease with heart failure and with stage 5 chronic kidney disease, or end stage renal disease (principal); N18.6 End stage renal disease; I50.30 Unspecified diastolic (congestive) heart failure; Z99.2 Dependence on renal dialysis; J44.9 Chronic obstructive pulmonary disease, unspecified; Z79.51 Long term (current) use of inhaled steroids; Z79.82 Long term (current) use of aspirin; Z79.02 Long term (current) use of antithrombotics/antiplatelets; F17.210 Nicotine dependence, cigarettes, uncomplicated
CPT/HCPCS: 71045; 80053; 85025; 93005; 99283

== ENCOUNTER 2021-08-16 00:32 | Inpatient (IN) | payer MEDICARE, MEDICAID, SELFPAY ==
[2021-08-16] VITALS (36 sets, daily range): BP systolic 144–201; BP diastolic 87–131; PULSE 78–102; RESP 14–36; TEMP 36.3–37.2; O2SAT 88–100; BMI 22.9; BMI 23.1
--- NOTE | 2021-08-16 00:43 | XRR_ITS ---
PROCEDURE INFORMATION: Exam: XR Chest Exam date and time: 08/16/2021 12:54 AM Age: 40 years old Clinical indication: Dyspnea and shortness of breath TECHNIQUE: Imaging protocol: XR of the chest. Views: 1 view. COMPARISON: CR XR chest 1V portable [id number] 08/14/2021 9:15 AM FINDINGS: Lungs: There increased interstitial markings present bilaterally, findings that could represent a bilateral interstitial pneumonitis. Some strandy opacities are seen in the lower hemithoraces most probably representing atelectasis. Pleural spaces: Unremarkable. No pleural effusion. No pneumothorax. Heart/Mediastinum: Unremarkable. No cardiomegaly. Bones/joints: Unremarkable. XR/XR chest 1V portable [id number] IMPRESSION: 1. Increased interstitial markings present bilaterally may represent bilateral interstitial pneumonitis. 2. Strandy opacities in the lower hemithoraces likely represents atelectasis.
--- NOTE | 2021-08-16 00:54 | ED_ITS ---
HPI - SOB/Dyspnea General: Chief Complaint: Shortness of Breath/Dyspnea Stated Complaint: SOB with Oxygen Time Seen by Provider: 08/16/21 00:50 History of Present Illness: HPI Narrative: Mr. Gibbs is a 40-year-old gentleman with complex past medical history presents to the emergency department due to shortness of breath despite home oxygen. He reports symptom onset 2 to 3 hours prior to arrival. Onset of symptoms was sudden while at rest. He endorses mild associated cough and feeling of shortness of breath. Earlier today he did have mild nausea. He reports compliance with his dialysis and medications, last dialysis was Monday 08/14 and he completed a full run. He reports pain at his baseline weight. Overall intensity symptoms is moderate to severe. Course has persisted. No other specific changes in health, exacerbating, or alleviating factors identified. Pertinent past history: COPD, congestive heart failure and other Onset (ago): hour(s) Severity: severe Exacerbating factors: lying flat, exertion and coughing Relieving factors: oxygen Known history of: COPD, congestive heart failure and other Review of Systems 2 General: Reports: 10 or more systems reviewed and unremarkable except in HPI and below PFSH ED PFSH: Medical History (HFpEF) heart failure with preserved ejection fraction Abdominal ascites Abdominal distention Abnormality of rib determined by X-ray Acute diastolic CHF (congestive heart failure) Anasarca Anemia Anxiety with depression Arteriovenous fistula for hemodialysis in place, secondary Ascites Atherosclerosis of coronary artery Chronic abdominal pain Congestive heart failure COPD (chronic obstructive pulmonary disease) COPD (chronic obstructive pulmonary disease) COVID 05/25 Current smoker Degenerative disc disease, lumbar End-stage renal disease on hemodialysis Gross hematuria Hemoptysis Hepatomegaly Hyperkalemia Hypertension Hypertensive emergency Ileus PHT (pulmonary hypertension) Pulmonary embolism 09/21 Inconclusive for very tiny peripheral LEFT lower lobe pulmonary artery sub segmental emboli versus poor opacification. Right heart failure with reduced right ventricular function Smoking addiction Transaminitis Urethral stricture Surgical History H/O hand surgery Amputation right 2&3 fingers 2017 History of adenoidectomy Stented coronary artery Family History Father No problems noted. Other Hypertension Social History Smoking and tobacco status: never smoked Alcohol intake: never Marital status: Number of children: 3 Current occupational status: disabled History of recent travel: No Physical Exam Const: COMMON NORMALS: alert GENERAL APPEARANCE: cooperative, well developed, in distress and ill appearing HENMT: COMMON NORMALS: normocephalic and atraumatic HEAD & SCALP: normocephalic and atraumatic THROAT: posterior oropharynx normal Eye: COMMON NORMALS: conjunctivae normal CONJUNCTIVA: Yes conjunctivae normal SCLERA: sclerae normal Neck/C-Spine: COMMON NORMALS: supple GENERAL: Yes trachea midline Resp: EFFORT & INSPECTION: Yes tachypneic and Yes Actively coughing AUSCULTATION: rales and diminished lung sounds Cardio: COMMON NORMALS: regular rhythm RATE: tachycardic RHYTHM: regular rhythm GI: COMMON NORMALS: Soft to palpation PALPATION: Yes Soft to palpation and No Tenderness to palpation present (GI) PERCUSSION: normal to percussion Extremity: GENERAL: Yes normal exam except as noted and No edema Neuro: COMMON NORMALS: moves all extremities SENSORIUM/ORIENTATION: Yes alert and No Orientation impaired Psych: COMMON NORMALS: mental status grossly normal and Normal thought process present THOUGHT PROCESS: Normal thought process present Course ED course: - Patient was seen and evaluated by me at bedside - Patient placed on cardiac monitors, IV access obtained - Initial evaluation notable for exam as above, ill appearance with respiratory distress on greater than normal supplemental oxygen. - Labs and xrays personally interpreted by me. EKGs at 0043 and 0304 personally interpreted by me and show sinus rhythm with first-degree AV block, nonspecific ST segment abnormalities. No STEMI. No peaked T waves. - RT treatment ordered - Labs notable for no leukocytosis, near baseline hemoglobin. Metabolic panel with similar findings to prior, no emergent requirement for dialysis. Delta troponin at 2 hours is uptrending in intermittent range though likely challenging to interpret in this clinical context BNP elevated. - Imaging notable for pulmonary vascular congestion, no lobar consolidation or pneumothorax. - Upon serial reexamination after treatment the patient was initially improved though patient subsequently once again developed worsening respiratory status and BiPAP was ordered. - Based on patient history, evaluation, and testing as interpreted the most likely cause of the patient's condition is multifactorial likely reflecting pulmonary edema resulting in acute on chronic respiratory failure with hypoxia and hypercapnia - Discussed with nephrology. - The results of ED evaluation were discussed with the patient including plan for admission due to requirement for level of care not available if discharged to prevent significant worsening/deterioration. - Admitting service was contacted and Dr Hernandez with the hospitalist service agreed to admit the patient - Patient was admitted without further deterioration or significant events. Note: Click bubbles or prepopulated cantu in note writing are used for assistance with data collection and billing and are inherently more limited than narrative and other text portions of this note. Please use narrative for additional clinical history and defer to narrative/free test for any case of contradictory information. If information appears in only free text or click bubble it should be considered present or absent as reported. Please contact note screenplay writer for clarifications of clinical information or contradictory information. MDM is a brief summary, contradictory or erroneous seeming information should be clarified and full note should be reviewed. Vital Signs: Vital signs: Vital Signs Temperature 97.8 F 08/18/21 07:24 Pulse Rate 90 08/18/21 12:28 Respiratory Rate 18 08/18/21 12:28 Blood Pressure 169/106 08/18/21 12:00 Pulse Oximetry 96 08/18/21 12:28 MDM - SOB/Dyspnea Medical Decision Making 40-year-old gentleman with complex past medical history presenting to the emergency department for respiratory distress. Patient required worse than baseline oxygen, had mild improvement initially with RT treatments however subsequently worsened again and placed on BiPAP and admitted for further management. Etiology of symptoms is likely multifactorial including volume overload and fluid shifts secondary to paracentesis and end-stage renal disease. Medical Records I reviewed the patient's medical records. Lab Data I reviewed the patient's lab results. : 08/18/21 03:42 08/18/21 03:37 Labs/Radiology: Radiology Impressions Chest X-Ray 08/16/21 00:43 IMPRESSION: 1. Increased interstitial markings present bilaterally may represent bilateral interstitial pneumonitis. 2. Strandy opacities in the lower hemithoraces likely represents atelectasis. Laboratory Results WBC 4.2 10^3/uL (4.0-10.0) 08/16/21 01:00 RBC 3.01 10^6/uL (4.1-5.3) L 08/16/21 01:00 Hgb 8.8 g/dL (11.7-16.6) L 08/16/21 01:00 Hct 28.0 % (42.0-52.0) L 08/16/21 01:00 MCV 93.0 fl (80-94) 08/16/21 01:00 MCH 29.2 pg (28.0-34.0) 08/16/21 01:00 MCHC 31.4 g/dL (30.0-36.0) 08/16/21 01:00 RDW 17.7 % (12.1-15.1) H 08/16/21 01:00 Plt Count 171 10^3/cmm (130-400) 08/16/21 01:00 MPV 9.7 fL (7.4-10.4) 08/16/21 01:00 Neut % (Auto) 62.1 % 08/16/21 01:00 Lymph % (Auto) 15.8 % 08/16/21 01:00 [place] % (Auto) 9.8 % 08/16/21 01:00 Eos % (Auto) 10.8 % 08/16/21 01:00 Baso % (Auto) 1.0 % 08/16/21 01:00 Neut # (Auto) 2.60 10^3/uL (1.8-7.7) 08/16/21 01:00 Lymph # (Auto) 0.7 10^3/uL (0.8-4.8) L 08/16/21 01:00 [place] # (Auto) 0.4 10^3/uL (0.2-0.9) 08/16/21 01:00 Eos # (Auto) 0.5 10^3/uL (0.0-0.8) 08/16/21 01:00 Baso # (Auto) 0.0 10^3/uL (0.0-0.1) 08/16/21 01:00 Nucleated RBC % (auto) 0 % 08/16/21 01:00 Nucleated RBCs # 0.0 /100WBC 08/16/21 01:00 Specimen Type Arterial 08/16/21 01:24 Sample Site Radial, right 08/16/21 01:24 ABG pH 7.45 (7.35-7.45) 08/16/21 01:24 ABG pCO2 48.1 mmHg (35-45) H 08/16/21 01:24 ABG pO2 42.7 mmHg (80.0-100.0) L 08/16/21 01:24 ABG HCO3 33.3 mmol/L (22-26) H 08/16/21 01:24 ABG Base Excess 8.3 mmol/L (-2.0-2.0) H 08/16/21 01:24 Alexei Test Pos 08/16/21 01:24 Hematocrit 27.3 % (42-52) L 08/16/21 01:24 O2 Delivery Device Nc 08/16/21 01:24 O2 Liters/Min 5.0 % 08/16/21 01:24 Bore Mill Operator For Plastic ID Hensa 08/16/21 01:24 Sodium 137 mmol/L (136-145) 08/16/21 01:00 Potassium 4.0 mmol/L (3.5-5.1) 08/16/21 01:00 Chloride 95 mmol/L (98-107) L 08/16/21 01:00 Carbon Dioxide 30 mmol/L (22-29) H 08/16/21 01:00 Anion Gap 16.0 (5-19) 08/16/21 01:00 BUN 24 mg/dL (6-20) H 08/16/21 01:00 Creatinine 5.2 mg/dL (0.7-1.2) H 08/16/21 01:00 GFR Calculation 12.5 mL/min (90-130) L 08/16/21 01:00 Glucose 104 mg/dL (65-115) 08/16/21 01:00 Calculated Osmolality 288 mOsm/kg (285-295) 08/16/21 01:00 Calcium 9.2 mg/dL (8.5-10.5) 08/16/21 01:00 Total Bilirubin 0.6 mg/dL (0.15-1.2) 08/16/21 01:00 AST 15 U/L (0-40) 08/16/21 01:00 ALT 6 U/L (0-41) 08/16/21 01:00 Alkaline Phosphatase 161 IU/L (40-130) H 08/16/21 01:00 Troponin T Baseline 68 ng/L (0-15) H 08/16/21 01:00 Troponin T 120 Minute 76.18 ng/L (0-15) H 08/16/21 02:58 Delta Troponin T 8.18 ABS# (0-10) 08/16/21 02:58 NT-Pro-B Natriuret Pep 80120 pg/mL (0-125) H 08/16/21 01:00 Total Protein 7.1 g/dL (6.6-8.7) 08/16/21 01:00 Albumin 4.0 g/dL (3.5-5.2) 08/16/21 01:00 Globulin 3.1 g/dL (1.3-4.6) 08/16/21 01:00 Coronavirus 229E (PCR) Not detected (NOT DETECT) 08/16/21 01:44 SARS-CoV-2 (PCR) Not detected (NOT DETECT) 08/16/21 01:44 Critical Care Time Critical Care Time: Critical Care Time: Yes Total Critical Care Time: 55 Attestation: Due to a high probability of clinically significant, possibly life threatening deterioration, the patient required my highest level of attention and preparedness to intervene emergently and I personally spent this critical care time directly and personally managing the patient. This critical care time included obtaining a history; examining the patient; pulse oximetry; ordering and review of laboratory and imaging studies; arranging urgent treatment with development of a management plan; evaluation of patient's response to treatment; frequent reassessment; and, discussions with other providers as applicable. It was exclusive of separately billable procedures. Primary system involved is pulmonary Discharge Plan Discharge Patient Disposition: Admitted As Inpatient Admit Provider: Jeanette Hernandez Clinical Impression: Acute on chronic respiratory failure with hypoxia and hypercapnia, Pulmonary edema, End-stage renal disease needing dialysis Condition: Stable Discharge Diet: As Directed and Cardiac Discharge Activity: Increase activity as tolerated Coding Level of Care Code ED Rubber Vulcanizing Machine Operator for Cristi Fwd Exam Comprehensive
--- NOTE | 2021-08-16 00:58 | ECG_ITS ---
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 Measurements Intervals [place] Rate: 96 P: 45 LA: 211 QRS: 79 QRSD: 114 T: 100 QT: 374 QTc: 473 Interpretive Statements SINUS RHYTHM WITH FIRST DEGREE AV BLOCK POSSIBLE LEFT ATRIAL ENLARGEMENT [-0.1mV P-WAVE IN V1/V2] MODERATE INTRAVENTRICULAR CONDUCTION DELAY [105+ ms QRS DURATION, 80+ ms Q/S IN V1/V2, NO Q AND 60+ ms R IN I/aVL/V5/V6] MODERATE T-WAVE ABNORMALITY, CONSIDER INFERIOR ISCHEMIA [-0.1+ mV T-WAVE IN II/aVF] Compared to ECG 08/14/2021 09:01:36 First degree AV block now present Intraventricular conduction delay now present T-wave abnormality now present Possible ischemia now present Left ventricular hypertrophy no longer present ST (T wave) deviation no longer present Electronically Signed On 08-16-2021 18:16:59 CDT by Ruba Hussein M.D. [id number]
[2021-08-16 01:22] LABS: Eosinophils # 0.5 10^3/uL (0.0-0.8); Eosinophils % 10.8 %; Hemoglobin 8.8 g/dL (11.7-16.6); Lymphocytes # 0.7 10^3/uL (0.8-4.8); Lymphocytes % 15.8 %; Mean Corpuscular HGB Conc 31.4 g/dL (30.0-36.0); Mean Corpuscular Hemoglobin 29.2 pg (28.0-34.0); Mean Platelet Volume 9.7 fL (7.4-10.4); Monocytes # 0.4 10^3/uL (0.2-0.9); Monocytes % 9.8 %; Neutrophils % 62.1 %; Nucleated Red Blood Cells % 0 %; Platelet Count 171 10^3/cmm (130-400); Red Blood Count 3.01 10^6/uL (4.1-5.3); Red Cell Distribution Width 17.7 % (12.1-15.1); White Blood Count 4.2 10^3/uL (4.0-10.0)
[2021-08-16] MEDS: ipratropium-albuterol 3 mL Neb INHALATION ×4 (01:23→21:46)
[2021-08-16 01:37] LABS: ABG PCO2 48.1 mmHg (35-45); ABG PH Result 7.45 (7.35-7.45); Arterial Blood Gas Hematocrit 27.3 % (42-52); Base Excess ABG 8.3 mmol/L (-2.0-2.0); Blood Gas Allen Test Pos; Blood Gas Sample Site Radial, right; Blood Gas Sample Type Arterial; HCO3 ABG 33.3 mmol/L (22-26); Oxygen Device NC; PO2 ABG 42.7 mmHg (80.0-100.0)
[2021-08-16 01:47] LABS: Troponin(5th) Baseline 68 ng/L (0-15)
[2021-08-16 01:54] LABS: Alanine Aminotransferase 6 U/L (0-41); Alkaline Phosphatase 161 IU/L (40-130); Aspartate Amino Transferase 15 U/L (0-40); Blood Urea Nitrogen 24 mg/dL (6-20); Calcium 9.2 mg/dL (8.5-10.5); Carbon Dioxide 30 mmol/L (22-29); Chloride 95 mmol/L (98-107); Globulin 3.1 g/dL (1.3-4.6); Glomerular Filtration Rate 12.5 mL/min (90-130); Glucose 104 mg/dL (65-115); Osmolality Calculated 288 mOsm/kg (285-295); Sodium 137 mmol/L (136-145); Total Bilirubin 0.6 mg/dL (0.15-1.2); Total Protein 7.1 g/dL (6.6-8.7)
[2021-08-16 02:33] LABS: NT Pro B Type Natriuretic Pept 57245 pg/mL (0-125)
[2021-08-16] MEDS: doxycycline 100 MG in sodium chloride 0.9% (plus) 100 ML IV (02:41)
--- NOTE | 2021-08-16 02:58 | ECG_ITS ---
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 Measurements Intervals [place] Rate: 85 P: [place]: QRS: 57 QRSD: 116 T: -37 QT: 394 QTc: 470 Interpretive Statements Sinus rhythm with a diffuse nonspecific ST-T changes MODERATE INTRAVENTRICULAR CONDUCTION DELAY [105+ ms QRS DURATION, 80+ ms Q/S IN V1/V2, NO Q AND 60+ ms R IN I/aVL/V5/V6] ST DEVIATION AND MODERATE T-WAVE ABNORMALITY, CONSIDER INFERIOR ISCHEMIA [-0.1+ mV T-WAVE IN II/aVF] Compared to ECG 08/16/2021 00:43:20 Sinus rhythm no longer present First degree AV block no longer present T-wave abnormality still present Possible ischemia still present Electronically Signed On 08-16-2021 18:23:28 CDT by Ruba Hussein M.D. [id number]
[2021-08-16] MEDS: acetaminophen 325 mg Tablet 650 MG PO (03:04)
[2021-08-16] MEDS: ketorolac 30 mg/mL INJ 15 MG IVP (03:05)
[2021-08-16 03:45] LABS: Adenovirus Not Detected (NOT DETECT); Chlamydia Pneumoniae Not Detected (NOT DETECT); Coronavirus 229E,HKU1,NL63,OC4 Not Detected (NOT DETECT); Human Metapneumovirus Not Detected (NOT DETECT); Human Rhinovirus/Enterovirus Not Detected (NOT DETECT); Influenza A Not Detected (NOT DETECT); Influenza A H1 Not Detected (NOT DETECT); Influenza A H1-2009 Not Detected (NOT DETECT); Influenza A H3 Not Detected (NOT DETECT); Influenza B Not Detected (NOT DETECT); Mycoplasma Pneumoniae Not Detected (NOT DETECT); Parainfluenza Virus Type 1 Not Detected (NOT DETECT); Parainfluenza Virus Type 2 Not Detected (NOT DETECT); Parainfluenza Virus Type 3 Not Detected (NOT DETECT); Parainfluenza Virus Type 4 Not Detected (NOT DETECT); Respiratory Syncytial Virus A Not Detected (NOT DETECT); Respiratory Syncytial Virus B Not Detected (NOT DETECT); SARS-COV-2 Not Detected (NOT DETECT)
[2021-08-16 03:49] LABS: Troponin 5 2HR 76.18 ng/L (0-15)
[2021-08-16 03:57] LABS: Troponin 5 2HR Delta 8.18 ABS# (0-10)
[2021-08-16] MEDS: morphine 4 mg/mL SDV 1 mL 2 MG IVP (04:14)
--- NOTE | 2021-08-16 05:03 | PM.HP ---
Providers/Chief Complaint Admitting Physician: Jeanette Hernandez DO Primary Care Provider: Mal Peres DO Chief Complaint: SOB with Oxygen History of Present Illness The patient is a 40-year-old male who was recently hospitalized at this facility from August 12, 2021 until August 13, 2021 who frequently presents to the emergency department who presents with true clear dyspnea. He states that his dyspnea developed a few hours prior to presenting to the emergency department on this morning. He admits to onset of fever, nausea, vomiting, cough productive of yellow sputum, wheeze, abdominal pain. He denies rigors, diarrhea, myalgia, chest pain, peripheral edema. Patient appears to have a longstanding history of medical noncompliance, specifically with regards to his hemodialysis schedule. He claims to have been compliant with his hemodialysis schedule. He is a smoker who is recently O2 dependent for his COPD at 3 L/min via nasal cannula. He presents for further evaluation Review of Systems General: Reports: 10 or more systems reviewed and unremarkable except in HPI and below Medications/Allergies Home Medications Medication Instructions Recorded Confirmed Last Taken Type pantoprazole 40 mg tablet,delayed 40 mg PO DAILY 02/25/21 08/14/21 07/17/21 History release rifaximin 550 mg tablet (Xifaxan) 550 mg PO BID 06/10/21 08/14/21 07/17/21 History amlodipine 10 mg tablet 10 mg PO DAILY 30 Days #30 tab 07/16/21 08/14/21 07/17/21 Rx aspirin 81 mg tablet,delayed 81 mg PO DAILY #30 tab 07/25/21 08/14/21 Unknown Rx release atorvastatin 40 mg tablet 40 mg PO BEDTIME #30 tab 07/25/21 08/14/21 Unknown Rx carvedilol 25 mg tablet 25 mg PO BID 30 Days #60 tab 07/25/21 08/14/21 07/17/21 Rx clonidine HCl 0.1 mg tablet 0.1 mg PO BID #60 tab 07/25/21 08/14/21 Unknown Rx clopidogrel 75 mg tablet 75 mg PO DAILY #30 tab 07/25/21 08/14/21 Unknown Rx nitroglycerin 0.4 mg sublingual 0.4 mg SUBLINGUAL Q5M PRN 30 Days 08/05/21 08/14/21 Unknown Rx tablet #30 tab albuterol sulfate 2.5 mg (3 mL) INHALATION BID #15 ml 08/06/21 08/14/21 Unknown Rx albuterol sulfate 90 mcg/actuation 2 puff INHALATION QID PRN #2 g 08/06/21 08/14/21 Unknown Rx aerosol inhaler (ProAir HFA) nicotine 14 mg/24 hr daily 1 patch TRANSDERMAL DAILY #14 ea 08/06/21 08/14/21 Unknown Rx transdermal patch quetiapine 25 mg tablet (Seroquel) 25 mg PO DAILY #30 tab 08/06/21 08/14/21 Unknown Rx umeclidinium 62.5 mcg/actuation 1 inh INHALATION DAILY #30 ea 08/06/21 08/14/21 Unknown Rx blister powder for inhalation (Incruse Ellipta) amoxicillin 875 mg-potassium 1 tab PO Q12H 7 Days #14 tab 08/08/21 08/14/21 Unknown Rx clavulanate 125 mg tablet cyclobenzaprine 10 mg tablet 10 mg PO Q12H PRN #30 tab 08/08/21 08/14/21 Unknown Rx doxycycline hyclate 100 mg tablet 100 mg PO BID 8 Days #16 tab 08/11/21 08/14/21 Unknown Rx fluticasone propionate 50 2 spray INTRANASAL DAILY PRN 08/12/21 08/14/21 Unknown History mcg/actuation nasal spray,suspension isosorbide mononitrate 60 mg 60 mg PO DAILY 08/12/21 08/14/21 Unknown History tablet,extended release 24 hr minoxidil 10 mg tablet 10 mg PO BID 08/12/21 08/14/21 Unknown History sevelamer carbonate 800 mg tablet See Rx Instructions .ROUTE .COMPLEX 08/12/21 08/14/21 Unknown History (Renvela) Allergies Allergy/AdvReac Type Severity Reaction Status Date / Time nifedipine Allergy ALGY-Swell Verified 08/15/21 11:21 Lip/Tongue/Throat PFSH Acute PFSH: Medical History (HFpEF) heart failure with preserved ejection fraction Abdominal ascites Abdominal distention Abnormality of rib determined by X-ray Acute diastolic CHF (congestive heart failure) Anasarca Anemia Anxiety with depression Arteriovenous fistula for hemodialysis in place, secondary Ascites Atherosclerosis of coronary artery Chronic abdominal pain Congestive heart failure COPD (chronic obstructive pulmonary disease) COPD (chronic obstructive pulmonary disease) COVID 01/22 Current smoker Degenerative disc disease, lumbar End-stage renal disease on hemodialysis Gross hematuria Hemoptysis Hepatomegaly Hyperkalemia Hypertension Hypertensive emergency Ileus PHT (pulmonary hypertension) Pulmonary embolism 09/21 Inconclusive for very tiny peripheral LEFT lower lobe pulmonary artery sub segmental emboli versus poor opacification. Right heart failure with reduced right ventricular function Smoking addiction Transaminitis Urethral stricture Surgical History H/O hand surgery Amputation right 2&3 fingers 2017 History of adenoidectomy Stented coronary artery Family History Father No problems noted. Other Hypertension Social History Smoking and tobacco status: never smoked Alcohol intake: never Marital status: Number of children: 3 Current occupational status: disabled History of recent travel: No Vitals/I&O/Wt Last Vital Signs Temp 97.4 F L 08/16/21 00:41 Pulse 87 08/16/21 04:27 Resp 27 H 08/16/21 04:14 BP 161/131 08/16/21 04:00 Pulse Ox 95 08/16/21 04:27 08/15/21 08/15/21 08/16/21 14:59 22:59 06:59 Intake Total 100 / 100 Balance 100 / 100 Weight last 48 hrs Weight 78.925 kg Physical Exam Narrative: General: -Alert -No acute distress -No dyspnea -No tachypnea Head: -Atraumatic -Normocephalic Eyes: -Pupils equally round and reactive to light and accommodation -Extraocular muscles intact Neurological: -Cranial nerves II-XII intact Neck: -No jugular venous distention -No thyromegaly -No cervical lymphadenopathy Heart: -Regular rate -Regular rhythm -No murmurs -No gallops -No rubs Lungs: -No wheeze -No rhonchi -No rales ? Abdomen: -Normal bowel sounds in all four quadrants -No rebound -No guarding -No tenderness Extremities: -2/4 pulse in all four extremities -No clubbing -No cyanosis -No edema -No calf tenderness present bilaterally -Negative Clifford?s sign bilaterally Musculoskeletal: -5/5 bilateral upper extremity strength -5/5 bilateral lower extremity strength -Sensorium of bilateral upper extremities are equal and intact -Sensorium of bilateral lower extremities are equal and intact ? Additional Details / Additional Findings / Exceptions / Miscellaneous: Data : 08/16/21 01:00 08/16/21 01:00 A&P Assessment and plan (1) Acute on chronic respiratory failure with hypoxia and hypercapnia: Status: Acute Plan Dyspnea, likely due to COPD exacerbation and/or questionable pneumonia Query pneumonia. Azithromycin 500 mg IV daily plus Rocephin 1 g IV daily plus DuoNeb every 4 hours. We will attempt to wean the patient off of BiPAP COPD, recently O2 dependent at 3 L/min via nasal cannula. Site Medrol 60 mg IV every 8 hours plus DuoNeb every 4 hours. Will attempt to wean the patient off of BiPAP Hyperparathyroidism Hypothyroidism End-stage renal disease for which the patient is hemodialysis dependent. The emergency department physician has informed me that he spoke with the registered nurse maternity who will evaluate the patient during his hospitalization. We will monitor serum electrolytes periodically Elevated troponin, chronic. Patient asymptomatic with regards to symptoms for ACS. Will monitor patient on telemetry and check serial cardiac enzymes. Will monitor EKG periodically Moderate pulmonary hypertension Anxiety Muscle spasm Chronic anemia/anemia of chronic disease. Will monitor hemoglobin intermittently CHF, ejection fraction 45%. Strict I's/O. Daily weight Coronary artery disease, status post [place], status post stent, status post coronary angioplasty GERD. Protonix 40 mg p.o. daily Hyperlipidemia Hypertension Smoker. The patient will be counseled regarding smoking cessation Osteoarthritis Depression Degenerative disc disease Query history of hyperammonemia. Ammonia level pending Suspected medical noncompliance. The patient be counseled regarding medical compliance DVT prophylaxis. Bilateral SCD Attestations Medical Necessity Statement*: The patient's anticipated length of stay is greater than 2 midnights for treatment of his O2 dependent COPD as well as likely pneumonia Coding Level of Care Code Acute Multifocal Button Generator for g Fwd Diagnoses Acute on chronic respiratory failure with hypoxia and hypercapnia J96.21; J96.22
[2021-08-16] MEDS: cefTRIAXone 1,000 MG in sodium chloride 0.9% (plus) 50 ML 100 MG IV (06:12)
[2021-08-16] MEDS: azithromycin 500 MG in sodium chloride 0.9% 250 ML 250 MG IV (06:13)
[2021-08-16 06:47] LABS: Troponin 5 6HR 62.21 ng/L (0-15)
[2021-08-16 06:52] LABS: Troponin 5 6HR Delta -5.79 ng/L (0-12)
--- NOTE | 2021-08-16 06:58 | ECG_ITS ---
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 Measurements Intervals [place] Rate: 88 P: 67 [place]: 184 QRS: 87 QRSD: 122 T: 95 QT: 408 QTc: 494 Interpretive Statements SINUS RHYTHM POSSIBLE LEFT ATRIAL ENLARGEMENT [-0.1mV P-WAVE IN V1/V2] MODERATE INTRAVENTRICULAR CONDUCTION DELAY [110+ ms QRS DURATION] NONSPECIFIC T-WAVE ABNORMALITY Compared to ECG 08/16/2021 03:04:56 Atrial flutter no longer present Possible ischemia no longer present T-wave abnormality still present Electronically Signed On 08-16-2021 18:23:54 CDT by Ruba Hussein M.D. [id number]
[2021-08-16 06:59] LABS: Magnesium 1.9 mg/dL (1.7-2.3); Phosphorus 4.7 mg/dL (2.5-4.5)
--- NOTE | 2021-08-16 07:17 | PC.NURSE ---
received bedside report from night rn. Pt c/o headache but otherwise breathing comfortably on bipap. will address with md. reviewed poc, assumed care of pt.
[2021-08-16 08:26] LABS: Ammonia 19 umol/L (16-60)
[2021-08-16] MEDS: pantoprazole DR 40 mg Tablet PO (08:34)
--- NOTE | 2021-08-16 10:43 | PC.CHAP ---
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 [] Patient/Family/Request visit [] Outpatient visit [] Follow-up visit [] Physician referral [] Code/Alert [x] Routine visit [] Staff referral [] Actively dying [x] Patient sleeping [] Family support [] [] Out of room [] Palliative care [] [] Receiving care in room [] Pre-surgical visit [] Trauma [] Long length of stay [] ICU visit [] Other: Relational/Emotional Strength [] Patient feels connected with others/family/visitors/staff [] Distress [] Loneliness/isolation [] Abandonment Spirituality of Patient [] Person of Ct [] Attends L[employer] of their Ct [] Believes in Prayer [] Reads Bible or Zoroastrianism materials [] There are Spiritual issues to be addressed Account Classification Clerk Interventions [x] Prayer [] Active listening [] Non-anxious presence [] Spiritual/emotional support [] Crisis/trauma care [] Spiritual counseling [] Bereavement support [] Provided bereavement packet [] Provided Bible/devotional materials [] Provided toy/stuffed animal, coloring book to patient or family member [] Provided Communion [] Anointing/[place] [] Salvation [x] Completed spiritual assessment [] Other: Impact on Illness or Injury [] Angry [] Fearful [] Anxious [] Often cries [] Exhaustion [] Unable to work [] Unable to attend mu-ism [] Unable to walk/stand [] Unable to read [] Unable to drive [] Unable to eat/drink [] Unable to sleep [] Unable to be with family [] Patient intubated [] Other: Summary Time spent with patient
--- NOTE | 2021-08-16 12:42 | PM.PN ---
Subjective Subjective: He reports he is not feeling much better. Feels cold. Having dry cough. Denies chest pain or pressure. Vitals/I&O/Wt Last Vital Signs Temp 97.5 F L 08/16/21 12:00 Pulse 85 08/16/21 12:00 Resp 17 08/16/21 12:00 BP 159/94 08/16/21 12:00 Pulse Ox 95 08/16/21 12:00 08/15/21 08/16/21 08/16/21 22:59 06:59 14:59 Intake Total 150 / 150 250 / 250 Balance 150 / 150 250 / 250 Weight last 48 hrs Weight 79.469 kg Weight 78.925 kg Physical Exam Const: COMMON NORMALS: alert GENERAL APPEARANCE: cooperative ORIENTATION/CONSCIOUSNESS: Yes awake HENMT: COMMON NORMALS: normocephalic, EAC's normal, Normal external nose present and moist oral mucous membranes HEAD & SCALP: normocephalic NOSE: Normal external nose present EXTERNAL AUDITORY CANAL: EAC's normal Neck/C-Spine: COMMON NORMALS: no meningeal signs Chest: CHEST: Yes Symmetrical chest wall rise Resp: AUSCULTATION: diminished lung sounds Cardio: COMMON NORMALS: regular rate, regular rhythm and No murmurs present (Cardio) RATE: regular rate RHYTHM: regular rhythm GI: COMMON NORMALS: Normal to inspection, nondistended, normoactive bowel sounds present, Soft to palpation and non-tender PALPATION: Yes Soft to palpation OTHER: Abdomen large, reports some mild diffuse tenderness Extremity: COMMON NORMALS: no pedal edema Neuro: COMMON NORMALS: moves all extremities SENSORIUM/ORIENTATION: Yes alert MENINGEAL SIGNS: Yes no meningeal signs Psych: COMMON NORMALS: mental status grossly normal Skin: COMMON NORMALS: no wounds RASHES: no rashes Data : 08/16/21 01:00 08/16/21 01:00 Micro: Microbiology 08/16/21 01:00 Blood Culture - Preliminary Blood SPECIMEN COLLECTED 08/16/21 01:50 Blood Culture - Preliminary Blood SPECIMEN COLLECTED A&P Assessment and plan (1) Acute on chronic respiratory failure with hypoxia and hypercapnia: COPD exacerbation, possible atypical pneumonia. COVID-19 PCR negative. Continue empiric antibiotics with ceftriaxone, azithromycin, continue IV steroid, continue breathing treatments, will add as needed. Requested bacterial antigens. MRSA PCR. BiPAP support as needed, continue oxygen support. Wean down as tolerating. Baseline reported at 3 L nasal cannula. Status: Acute Plan COPD exacerbation Possible atypical pneumonia, versus CHF exacerbation History of ascites: States has required paracentesis in the past. States that his abdomen was checked for ascites yesterday in ER and none were found. Hyperparathyroidism Hypothyroidism End-stage renal disease for which the patient is hemodialysis dependent. Normally gets dialysis MWF. Elevated troponin, chronic. No chest pain or pressure. Appears to have chronic troponin ovation in setting of ESRD. Moderate pulmonary hypertension Anxiety Muscle spasm Chronic anemia/anemia of chronic disease. Will monitor hemoglobin intermittently CHF, ejection fraction 45%. Cannot exclude possible minimal exacerbation, minimal edema in lower extremities. Some increased interstitial markings on chest x-ray. Strict I's/O. Daily weight Coronary artery disease, status post [place], status post stent, status post coronary angioplasty GERD. Protonix 40 mg p.o. daily Hyperlipidemia Hypertension Smoker. Nicotine replacement as needed. Osteoarthritis Depression Degenerative disc disease Query history of hyperammonemia. Ammonia level normal Suspected medical noncompliance. Attestations Medical Necessity Statement*: Continue admission for assessment management of acute hypoxic respiratory failure. Coding Level of Care Code Acute Vp Customer Service for g Fwd Diagnoses Acute on chronic respiratory failure with hypoxia and hypercapnia J96.21; J96.22
--- NOTE | 2021-08-16 13:11 | P.CONIM_ITS ---
Providers/Reason For Consult Consulting Physician/Specialty*: Nephrology Reason for Consult*: Eval for ESRD Attending Physician: Bob Gonzalez Primary Care Provider: Mal Peres DO History of Present Illness History of Present Illness Thank you for consultation. Today I reviewed Mr. Gibbs that we know from numerous hospitalizations in the past. Presents with increasing dyspnea. [place] to be secondary to COPD, being also covered for pneumonia. Currently on BiPAP, breathing comfortably and maintaining his oxygen saturations. I received dialysis on Thursday. Minimal global edema except for ascites which is a known chronic issue for him. Access is working, no new issues with that either. Hemodynamics reviewed and remained stable. No acute abnormalities in his chemistry either. Review of Systems 2 Narrative: 12 point review of systems completed per HPI and subjective assessment, this includes Constitutional:Weakness, fatigue Respiratory: No SOB on exertion, comfortable at rest CardioVasc: No chest pain, palpitations Gastrointestinal: No nausea, no vomiting Neurological: No seizures, no AMS Derm: No new rashes, lesions or wounds Immunological: No seasonal and no food allergies Medications/Allergies Home Medications Medication Instructions Recorded Confirmed Last Taken Type pantoprazole 40 mg tablet,delayed 40 mg PO DAILY 02/25/21 08/16/21 08/15/21 History release rifaximin 550 mg tablet (Xifaxan) 550 mg PO BID 06/10/21 08/16/21 08/15/21 History amlodipine 10 mg tablet 10 mg PO DAILY 30 Days #30 tab 07/16/21 08/16/21 08/15/21 Rx aspirin 81 mg tablet,delayed 81 mg PO DAILY #30 tab 07/25/21 08/16/21 08/15/21 Rx release atorvastatin 40 mg tablet 40 mg PO BEDTIME #30 tab 07/25/21 08/16/21 08/15/21 Rx carvedilol 25 mg tablet 25 mg PO BID 30 Days #60 tab 07/25/21 08/16/21 08/15/21 Rx clonidine HCl 0.1 mg tablet 0.1 mg PO BID #60 tab 07/25/21 08/16/21 08/15/21 Rx clopidogrel 75 mg tablet 75 mg PO DAILY #30 tab 07/25/21 08/16/21 08/15/21 Rx nitroglycerin 0.4 mg sublingual 0.4 mg SUBLINGUAL Q5M PRN 30 Days 08/05/21 08/16/21 Unknown Rx tablet #30 tab albuterol sulfate 2.5 mg (3 mL) INHALATION BID #15 ml 08/06/21 08/16/21 08/15/21 Rx albuterol sulfate 90 mcg/actuation 2 puff INHALATION QID PRN #2 g 08/06/21 08/16/21 08/15/21 Rx aerosol inhaler (ProAir HFA) nicotine 14 mg/24 hr daily 1 patch TRANSDERMAL DAILY #14 ea 08/06/21 08/16/21 Unknown Rx transdermal patch quetiapine 25 mg tablet (Seroquel) 25 mg PO DAILY #30 tab 08/06/21 08/16/21 08/15/21 Rx umeclidinium 62.5 mcg/actuation 1 inh INHALATION DAILY #30 ea 08/06/21 08/16/21 08/15/21 Rx blister powder for inhalation (Incruse Ellipta) amoxicillin 875 mg-potassium 1 tab PO Q12H 7 Days #14 tab 08/08/21 08/16/21 08/15/21 Rx clavulanate 125 mg tablet cyclobenzaprine 10 mg tablet 10 mg PO Q12H PRN #30 tab 08/08/21 08/16/21 Rx doxycycline hyclate 100 mg tablet 100 mg PO BID 8 Days #16 tab 08/11/21 08/16/21 08/15/21 Rx fluticasone propionate 50 2 spray INTRANASAL DAILY PRN 08/12/21 08/16/21 08/15/21 History mcg/actuation nasal spray,suspension isosorbide mononitrate 60 mg 60 mg PO DAILY 08/12/21 08/16/21 08/15/21 History tablet,extended release 24 hr minoxidil 10 mg tablet 10 mg PO BID 08/12/21 08/16/21 08/15/21 History sevelamer carbonate 800 mg tablet See Rx Instructions .ROUTE .COMPLEX 08/12/21 08/16/21 08/15/21 History (Renvela) hydralazine 50 mg tablet 50 mg PO TID 08/16/21 08/16/21 08/15/21 History Allergies Allergy/AdvReac Type Severity Reaction Status Date / Time nifedipine Allergy ALGY-Swell Verified 08/15/21 11:21 Lip/Tongue/Throat Current Medications Generic Name Dose Route Start Last Admin Trade Name Freq PRN Reason Stop Dose Admin Albuterol/Ipratropium 3 ml 08/16/21 08:00 08/16/21 11:21 Ipratropium-Albuterol 3 Ml Neb INHALATION 3 ml Q4H.RESPIRATORY ARTEM Administration Azithromycin 500 mg/ Sodium 250 mls @ 250 mls/hr 08/16/21 05:31 08/16/21 07:15 Chloride IV Infused Q24H ARTEM Infusion Protocol Ceftriaxone Sodium 1,000 mg/ 50 mls @ 100 mls/hr 08/16/21 06:31 08/16/21 06:42 Sodium Chloride IV Infused Q24H ARTEM Infusion Protocol Methylprednisolone Sodium Succinate 60 mg 08/16/21 05:31 08/16/21 06:13 Methylprednisolone Sod Succ 125 Mg/2 Ml Inj IVP 60 mg Q8H ARTEM Administration Pantoprazole Sodium 40 mg 08/16/21 09:00 08/16/21 08:[address] 40 Mg Tablet PO 40 mg DAILY ARTEM Administration PFSH Acute PFSH: Medical History (HFpEF) heart failure with preserved ejection fraction Abdominal ascites Abdominal distention Abnormality of rib determined by X-ray Acute diastolic CHF (congestive heart failure) Anasarca Anemia Anxiety with depression Arteriovenous fistula for hemodialysis in place, secondary Ascites Atherosclerosis of coronary artery Chronic abdominal pain Congestive heart failure COPD (chronic obstructive pulmonary disease) COPD (chronic obstructive pulmonary disease) COVID 05/25 Current smoker Degenerative disc disease, lumbar End-stage renal disease on hemodialysis Gross hematuria Hemoptysis Hepatomegaly Hyperkalemia Hypertension Hypertensive emergency Ileus PHT (pulmonary hypertension) Pulmonary embolism 09/21 Inconclusive for very tiny peripheral LEFT lower lobe pulmonary artery sub s egmental emboli versus poor opacification. Right heart failure with reduced right ventricular function Smoking addiction Transaminitis Urethral stricture Surgical History H/O hand surgery Amputation right 2&3 fingers 2017 History of adenoidectomy Stented coronary artery Family History Father No problems noted. Other Hypertension Social History Smoking and tobacco status: never smoked Alcohol intake: never Marital status: Number of children: 3 Current occupational status: disabled History of recent travel: No Vitals/I&O/Wt Last Vital Signs Temp 97.5 F L 08/16/21 12:00 Pulse 85 08/16/21 12:00 Resp 17 08/16/21 12:00 BP 159/94 08/16/21 12:00 Pulse Ox 95 08/16/21 12:00 08/15/21 08/16/21 08/16/21 22:59 06:59 14:59 Intake Total 150 / 150 250 / 250 Balance 150 / 150 250 / 250 Weight last 48 hrs Weight 79.469 kg Weight 78.925 kg Physical Exam Narrative: Constitutional: Awake, comfortable HEENT: Wet mucosa, no jvp, non icteric Lungs: Bilaterally clear without discernible wheeze, rales in all lung zones CVS: S1 S2, no murmurs Abdo: Soft, BS ok Ext 4: Minimal edema, peripheral perfusion with no cyanosis Neurological: Grossly non-focal Data : 08/16/21 01:00 08/16/21 01:00 Micro: Microbiology 08/16/21 01:00 Blood Culture - Preliminary Blood SPECIMEN COLLECTED 08/16/21 01:50 Blood Culture - Preliminary Blood SPECIMEN COLLECTED A&P Assessment and plan (1) End-stage renal disease needing dialysis: Status: Acute Plan 1. ESRD We will dialyze today and continue Thursday, Thursday and Thursday schedule 3K bath, ultrafiltration 3-4 L, it appears he could benefit from the ultrafiltration Dose medication for GFR less than 15 on dialysis 2. Shortness of breath Being treated for COPD and pneumonia. Management per medical team Currently on BiPAP, I hope ultrafiltration will also help. 3. Hemodynamics Blood pressure on the higher side, this is standard for him as well, hopefully ultrafiltration will help, continue home medications without up titration at this time. 4. Chronic ESRD issues To be handled as an outpatient as part of standard monthly management, continue outpatient home medication. Thank you for consultation, as always it is a pleasure to follow patients with you > 20 minutes spent in evaluation management of case with greater than 50% of time in [id number] counseling. 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
[2021-08-17] VITALS (19 sets, daily range): BP systolic 150–181; BP diastolic 88–125; PULSE 86–100; RESP 13–21; TEMP 36.3–36.8; O2SAT 94–98; BMI 22.3
[2021-08-17] MEDS: ipratropium-albuterol 3 mL Neb INHALATION ×5 (00:15→15:24)
[2021-08-17 04:44] LABS: Basophils % 0.1 %; Hematocrit 28.8 % (42.0-52.0); Lymphocytes # 0.3 10^3/uL (0.8-4.8); Lymphocytes % 3.8 %; Mean Corpuscular HGB Conc 31.3 g/dL (30.0-36.0); Mean Corpuscular Hemoglobin 29.1 pg (28.0-34.0); Mean Corpuscular Volume 93.2 fl (80-94); Mean Platelet Volume 10.3 fL (7.4-10.4); Monocytes # 0.2 10^3/uL (0.2-0.9); Monocytes % 2.6 %; Neutrophils # 7.53 10^3/uL (1.8-7.7); Neutrophils % 92.6 %; Nucleated Red Blood Cells % 0.2 %; Platelet Count 201 10^3/cmm (130-400); Red Blood Count 3.09 10^6/uL (4.1-5.3); Red Cell Distribution Width 17.6 % (12.1-15.1); White Blood Count 8.1 10^3/uL (4.0-10.0)
[2021-08-17 05:02] LABS: Alanine Aminotransferase < 5 U/L (0-41); Albumin Level 3.6 g/dL (3.5-5.2); Alkaline Phosphatase 126 IU/L (40-130); Anion Gap 15.7 (5-19); Aspartate Amino Transferase 14 U/L (0-40); Blood Urea Nitrogen 24 mg/dL (6-20); Calcium 10.6 mg/dL (8.5-10.5); Carbon Dioxide 28 mmol/L (22-29); Chloride 96 mmol/L (98-107); Glomerular Filtration Rate 14.7 mL/min (90-130); Glucose 132 mg/dL (65-115); Osmolality Calculated 286 mOsm/kg (285-295); Potassium 4.7 mmol/L (3.5-5.1); Sodium 135 mmol/L (136-145); Total Bilirubin 0.6 mg/dL (0.15-1.2); Total Protein 7.6 g/dL (6.6-8.7)
[2021-08-17] MEDS: cefTRIAXone 1,000 MG in sodium chloride 0.9% (plus) 50 ML 50 MG IV (05:21)
[2021-08-17] MEDS: azithromycin 500 MG in sodium chloride 0.9% 250 ML 250 MG IV (05:22)
[2021-08-17] MEDS: pantoprazole DR 40 mg Tablet PO (08:40)
--- NOTE | 2021-08-17 11:06 | P.PN_ITS ---
Subjective Subjective: No new issues with Mr. Gibbs, still on and off BiPAP. Dialysis went well yesterday with no acute issues. He is otherwise comfortable. Eating and drinking normally. No uremic symptoms otherwise. Vitals/I&O/Wt Last Vital Signs Temp 97.9 F 08/17/21 07:20 Pulse 88 08/17/21 11:01 Resp 19 H 08/17/21 11:00 BP 150/88 08/17/21 07:20 Pulse Ox 96 08/17/21 11:01 08/16/21 08/17/21 08/17/21 22:59 06:59 14:59 Intake Total 480 / 1180 540 / 1720 300 / 300 Output Total 0 / 0 0 / 0 Balance 480 / 1180 540 / 1720 300 / 300 Weight last 48 hrs Weight 76.839 kg Weight 79.469 kg Weight 78.925 kg Physical Exam Narrative: Constitutional: Awake, comfortable HEENT: Wet mucosa, no jvp, non icteric Lungs: Bilaterally clear without discernible wheeze, rales in all lung zones CVS: S1 S2, no murmurs Abdo: Soft, BS ok Ext 4: Minimal edema, peripheral perfusion with no cyanosis Neurological: Grossly non-focal Data : 08/17/21 03:37 08/17/21 03:37 Micro: Microbiology 08/16/21 01:00 Blood Culture - Preliminary Blood NEGATIVE TO DATE 08/16/21 01:50 Blood Culture - Preliminary Blood NEGATIVE TO DATE 08/16/21 08:40 MRSA Culture - Final Nose A&P Assessment and plan (1) End-stage renal disease needing dialysis: Status: Acute Plan 1. ESRD We will dialyze today and continue Thursday, Thursday and Thursday schedule I will plan on doing dialysis again today for him, to get a little bit more fluid off, hopefully will help him stay off BiPAP. 3K bath, ultrafiltration 3-4 L, it appears he could benefit from the ultrafiltration Dose medication for GFR less than 15 on dialysis 2. Shortness of breath Being treated for COPD and pneumonia. Management per medical team Currently on BiPAP, I hope ultrafiltration will also help. 3. Hemodynamics Blood pressure on the higher side, this is standard for him as well, hopefully ultrafiltration will help, continue home medications without up titration at this time. 4. Chronic ESRD issues To be handled as an outpatient as part of standard monthly management, continue outpatient home medication. Thank you for consultation, as always it is a pleasure to follow patients with you > 20 minutes spent in evaluation management of case with greater than 50% of time in [id number] counseling. 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
--- NOTE | 2021-08-17 14:19 | PC.NURSE ---
patient asked for a snack, okay by nurse. Gave a pudding, and four ar crackers.
--- NOTE | 2021-08-17 17:33 | PC.NURSE ---
Patient off floor for dialysis
[2021-08-17] MEDS: cyclobenzaprine 10 mg Tablet 5 MG PO (18:40)
--- NOTE | 2021-08-17 20:23 | P.PN_ITS ---
Subjective Subjective: He is overall feeling better. His oxygenation has been improving. He is weaning down off BiPAP support during the day. Vitals/I&O/Wt Last Vital Signs Temp 97.9 F 08/17/21 15:27 Pulse 91 08/17/21 15:27 Resp 18 08/17/21 15:27 BP 163/125 08/17/21 15:27 Pulse Ox 98 08/17/21 15:27 08/17/21 08/17/21 08/17/21 06:59 14:59 22:59 Intake Total 540 / 1720 300 / 300 240 / 540 Output Total 0 / 0 Balance 540 / 1720 300 / 300 240 / 540 Weight last 48 hrs Weight 76.839 kg Weight 79.469 kg Weight 78.925 kg Physical Exam Narrative: Undergoing dialysis. at bedside. Const: COMMON NORMALS: alert GENERAL APPEARANCE: cooperative ORIENTATION/CONSCIOUSNESS: Yes awake HENMT: COMMON NORMALS: normocephalic, EAC's normal, Normal external nose present and moist oral mucous membranes HEAD & SCALP: normocephalic NOSE: Normal external nose present EXTERNAL AUDITORY CANAL: EAC's normal Neck/C-Spine: COMMON NORMALS: no meningeal signs Chest: CHEST: Yes Symmetrical chest wall rise Resp: AUSCULTATION: diminished lung sounds Cardio: COMMON NORMALS: regular rate, regular rhythm and No murmurs present (Cardio) RATE: regular rate RHYTHM: regular rhythm GI: COMMON NORMALS: Normal to inspection, nondistended, normoactive bowel sounds present, Soft to palpation and non-tender PALPATION: Yes Soft to palpation OTHER: Abdomen large, states no different than usual, tenderness improving Extremity: COMMON NORMALS: no pedal edema Neuro: COMMON NORMALS: moves all extremities SENSORIUM/ORIENTATION: Yes alert MENINGEAL SIGNS: Yes no meningeal signs Psych: COMMON NORMALS: mental status grossly normal Skin: COMMON NORMALS: no wounds RASHES: no rashes Data : 08/17/21 03:37 08/17/21 03:37 Micro: Microbiology 08/16/21 01:00 Blood Culture - Preliminary Blood NEGATIVE TO DATE 08/16/21 01:50 Blood Culture - Preliminary Blood NEGATIVE TO DATE A&P Assessment and plan (1) Acute on chronic respiratory failure with hypoxia and hypercapnia: Discussed with him and his noted small pericardial effusion on echo 08/04, but then noted moderate effusion on CT prior to presentation 08/11. Discussed consideration of possible enlarging effusion. He is agreeable to stay to obtain limited echocardiogram to further assess size of effusion given recent increase. Currently undergoing hemodialysis. COPD exacerbation, possible atypical pneumonia. COVID-19 PCR negative. Continue empiric antibiotics with ceftriaxone, azithromycin, continue IV steroid, continue breathing treatments. Requested bacterial antigens. MRSA PCR. Baseline reported at 3 L nasal cannula. Status: Acute Plan COPD exacerbation Possible atypical pneumonia, versus CHF exacerbation History of ascites: States has required paracentesis in the past. States that his abdomen was checked for ascites yesterday in ER and none were found. Hyperparathyroidism Hypothyroidism End-stage renal disease for which the patient is hemodialysis dependent. Normally gets dialysis MWF. Elevated troponin, chronic. No chest pain or pressure. Appears to have chronic troponin ovation in setting of ESRD. Moderate pulmonary hypertension Anxiety Muscle spasm Chronic anemia/anemia of chronic disease. Will monitor hemoglobin intermittently CHF, ejection fraction 45%. Cannot exclude possible minimal exacerbation, minimal edema in lower extremities. Some increased interstitial markings on chest x-ray. Strict I's/O. Daily weight Coronary artery disease, status post ID, status post stent, status post coronary angioplasty GERD. Protonix 40 mg p.o. daily Hyperlipidemia Hypertension Smoker. Nicotine replacement as needed. Osteoarthritis Depression Degenerative disc disease Query history of hyperammonemia. Ammonia level normal Suspected medical noncompliance. Attestations Medical Necessity Statement*: Continue admission for additional hemodialysis, continued treatment of pneumonia, assessment of pericardial effusion. 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
--- NOTE | 2021-08-17 22:22 | PC.NURSE ---
returned from HD via bed at 22:00, per report of HD nurse pt BP remain elevated with SBP >180. pt is not currently receiving his home antihypertensives; call placed to Dr Hernandez to discuss. New orders received.
[2021-08-17] MEDS: cloNIDine 0.1 mg Tablet 0.3 MG PO (22:52)
[2021-08-17] MEDS: hyDRALAzine 50 mg Tablet 100 MG PO (22:52)
[2021-08-18] VITALS (12 sets, daily range): BP systolic 163–184; BP diastolic 101–127; PULSE 83–96; RESP 15–23; TEMP 36.6; O2SAT 94–98
[2021-08-18] MEDS: ipratropium-albuterol 3 mL Neb INHALATION ×4 (01:02→12:27)
--- NOTE | 2021-08-18 02:23 | USCV_ITS ---
Mal Gibbs Age: 40 Gender: M : 1980 Exam Date: 08/18/2021 02:33 Ordering Phys: Bob Gonzalez MD Technologist: Darian Vazquez [place] [facility] [place]: Evaluation of pericardial effusion BP: 163 / 93 HR: 90 Rhythm: Sinus Technical Quality: Adequate MEASUREMENTS (Male / Female) Normal Values 2D ECHO LV Diastolic Diameter PLAX 4.5 cm 4.2 - 5.9 / 3.9 - 5.3 cm LV Systolic Diameter PLAX 2.9 cm IVS Diastolic Thickness 2.1 cm 0.6 - 1.0 / 0.6 - 0.9 cm IVS Systolic Thickness 2.5 cm LVPW Diastolic Thickness 2.5 cm 0.6 - 1.0 / 0.6 - 0.9 cm LVPW Systolic Thickness 3.0 cm LVOT Diameter 2.1 cm LV Ejection Fraction 2D Teich 64.3 % LV Ejection Fraction MOD 2C 60.9 % LV Ejection Fraction 2C AL 61.8 % LA Diameter 5.1 cm LA Width 5.2 cm LA Height 6.0 cm RA Width 4.1 cm RA Height 6.5 cm Aorta at Sinotubular Diameter 2.1 cm M-MODE Aortic Annulus Diameter 2.6 cm LA Ao Ratio MM 2.1 MV E Point Septal Separation 1.4 cm DOPPLER Right Atrial Pressure 13.0 mmHg FINDINGS Left Ventricle Normal left ventricular size, systolic function and severely increased wall thickness, with no regional wall motion abnormalities. Severe concentric left ventricular hypertrophy. Left ventricular ejection fraction is estimated at 62 %. Right Ventricle Normal right ventricular size and systolic function. Right Atrium Moderately increased right atrial size. Right atrial pressure estimated at 3 mm Hg. Left Atrium Moderately increased left atrial size. Mitral Valve Structurally normal mitral valve. Mild mitral annular calcification. No mitral valve stenosis. Aortic Valve Structurally normal trileaflet aortic valve. Tricuspid Valve Structurally normal tricuspid valve. Pulmonic Valve Structurally normal pulmonic valve. Pericardium Small circumferential pericardial effusion. No evidence of hemodynamic compromise. Aorta Normal size aortic root. Normal sized inferior vena cava. CONCLUSIONS 1. This is a limited echocardiogram. 2. Normal left ventricular size and systolic function with no regional wall motion abnormalities. Severe concentric left ventricular hypertrophy. Left ventricular ejection fraction is estimated at 62 %. 3. Small circumferential pericardial effusion. No evidence of hemodynamic compromise. 4. No change when compared to study dated 08/04/21. Rosalia Dia MD (Electronically Signed) Final Date: 18 August 2021 08:42 S
[2021-08-18 03:57] LABS: Basophils % 0.1 %; Hematocrit 29.9 % (42.0-52.0); Hemoglobin 9.2 g/dL (11.7-16.6); Lymphocytes # 0.8 10^3/uL (0.8-4.8); Lymphocytes % 7.7 %; Mean Corpuscular HGB Conc 30.8 g/dL (30.0-36.0); Mean Corpuscular Hemoglobin 29.1 pg (28.0-34.0); Mean Corpuscular Volume 94.6 fl (80-94); Mean Platelet Volume 9.6 fL (7.4-10.4); Monocytes # 0.6 10^3/uL (0.2-0.9); Neutrophils # 8.54 10^3/uL (1.8-7.7); Neutrophils % 84.7 %; Nucleated Red Blood Cells # 0.1 /100WBC; Nucleated Red Blood Cells % 0.6 %; Platelet Count 215 10^3/cmm (130-400); Red Blood Count 3.16 10^6/uL (4.1-5.3); Red Cell Distribution Width 18.3 % (12.1-15.1); White Blood Count 10.1 10^3/uL (4.0-10.0)
[2021-08-18 04:52] LABS: Alanine Aminotransferase 7 U/L (0-41); Albumin Level 3.8 g/dL (3.5-5.2); Alkaline Phosphatase 138 IU/L (40-130); Anion Gap 17.1 (5-19); Aspartate Amino Transferase 14 U/L (0-40); Blood Urea Nitrogen 21 mg/dL (6-20); Calcium 8.9 mg/dL (8.5-10.5); Carbon Dioxide 29 mmol/L (22-29); Chloride 97 mmol/L (98-107); Globulin 3.1 g/dL (1.3-4.6); Glomerular Filtration Rate 19.1 mL/min (90-130); Glucose 143 mg/dL (65-115); Osmolality Calculated 293 mOsm/kg (285-295); Potassium 4.1 mmol/L (3.5-5.1); Sodium 139 mmol/L (136-145); Total Bilirubin 0.5 mg/dL (0.15-1.2); Total Protein 6.9 g/dL (6.6-8.7)
[2021-08-18] MEDS: azithromycin 500 MG in sodium chloride 0.9% 250 ML 250 MG IV (06:44)
[2021-08-18] MEDS: cefTRIAXone 1,000 MG in sodium chloride 0.9% (plus) 50 ML 50 MG IV (06:45)
[2021-08-18] MEDS: hyDRALAzine 50 mg Tablet 100 MG PO (08:07)
[2021-08-18] MEDS: pantoprazole DR 40 mg Tablet PO (08:07)
--- NOTE | 2021-08-18 08:57 | P.PN_ITS ---
Subjective Subjective: Sharath has some mild dyspnea but otherwise no acute problems. Did have dialysis yesterday, the second day in a row. No other new issues today. Typically he does use nasal cannula oxygen at home, 3 L, today he is at 2.5 L and maintaining his oxygen saturation levels just fine. No other acute new uremic symptoms. His belly is little distended. Minimal extremity edema. Currently pending echocardiogram result prior to discharge. Vitals/I&O/Wt Last Vital Signs Temp 97.8 F 08/18/21 07:24 Pulse 92 08/18/21 08:02 Resp 18 08/18/21 07:51 BP 176/101 08/18/21 07:24 Pulse Ox 95 08/18/21 07:51 08/17/21 08/18/21 08/18/21 22:59 06:59 14:59 Intake Total 960 / 1260 360 / 1620 240 / 240 Output Total 0 / 0 0 / 0 Balance 960 / 1260 360 / 1620 240 / 240 Weight last 48 hrs Weight 76.839 kg Physical Exam Narrative: Constitutional: Awake, comfortable HEENT: Wet mucosa, no jvp, non icteric Lungs: Bilaterally clear without discernible wheeze, rales in all lung zones CVS: S1 S2, no murmurs Abdo: Soft, BS ok Ext 4: Minimal edema, peripheral perfusion with no cyanosis Neurological: Grossly non-focal Data : 08/18/21 03:42 08/18/21 03:37 Micro: Microbiology 08/16/21 01:00 Blood Culture - Preliminary Blood NEGATIVE TO DATE 08/16/21 01:50 Blood Culture - Preliminary Blood NEGATIVE TO DATE A&P Assessment and plan (1) End-stage renal disease needing dialysis: Status: Acute Plan 1. ESRD Continue Thursday, Thursday and Thursday schedule, ordered for the am 3K bath, ultrafiltration 3-4 L, it appears he could benefit from the ultrafiltration Dose medication for GFR less than 15 on dialysis 2. Shortness of breath Being treated for COPD and pneumonia. Management per medical team UF with HD will help Echo result pending 3. Hemodynamics Blood pressure on the higher side,drop dry weight with dialysis 4. Chronic ESRD issues To be handled as an outpatient as part of standard monthly management, continue outpatient home medication. - ok for DC after echo result Thank you for consultation, as always it is a pleasure to follow patients with you > 20 minutes spent in evaluation management of case with greater than 50% of time in [id number] counseling. 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
[2021-08-18] MEDS: cloNIDine 0.1 mg Tablet 0.3 MG PO (10:41)
[2021-08-18] MEDS: tizanidine 4 mg Tablet PO (10:42)
--- NOTE | 2021-08-18 14:28 | P.DS_ITS ---
Discharge Providers Date of Admission: 08/16/21 04:34 Date of Discharge: August 18, 2021 Attending Provider at Admission: Jeanette Hernandez DO Attending Provider at Discharge: Bob Gonzalez Primary Care Provider: Mal Peres DO Diagnoses at Discharge Discharge Diagnosis (1) End-stage renal disease needing dialysis: Status: Acute Reason for Visit Reason for Visit: SOB with Oxygen Hospital Course Hospital Course 40-year-old gentleman with history of ESRD, diastolic CHF, recurrent ascites, liver biopsy negative for cirrhosis, COPD, current smoker, on 3 L nasal cannula oxygen, hepatosplenomegaly, persistent small pericardial effusion, other chronic medical problems was admitted for assessment management of acute on chronic respiratory failure with hypoxia, required BiPAP support, wean down to nasal cannula oxygen support 7 L. Underwent hemodialysis, with additional session as well for possibility of fluid overload adding to the picture. He does state that on the he was assessed with ultrasound and not found to have sufficient ascites for paracentesis, although CT chest abdomen pelvis on 08/11 did show multilobar pneumonia with interstitial pulmonary edema, moderate pericardial effusion, hepatosplenomegaly and moderate to large volume ascites. He had been treated with Augmentin and doxycycline on outpatient side. While in the hospital received treatment with ceftriaxone and azithromycin, methylprednisolone. His oxygenation improved, he is currently down to 2 L. Given moderate pericardial effusion seen on CT additional limited TTE assessment was obtained, which revealed small effusion. He does reveal LVH, discussed with him as his blood pressures are not optimally controlled. He does not want to stay in the hospital any longer due to Easter and wanting to spend it with his family, however, discussed with him to continue optimized blood pressure control, continue his medications, monitor blood pressures at least twice daily, continue work with primary provider and specialist providers to improve blood pressures to slow progression of LVH. He does get intermittent hyperkalemia, and in the past was not always adherent with dialysis, so for now DAMIEN inhibitor/ARB is not started, but his states that now he has been compliant with dialysis, attending all his sessions, and so if potassium stays good, perhaps this medication could be added. He is asked to follow-up with cardiology as well. The nature of his recurrent ascites is still not clear. Liver biopsy was negative for cirrhosis. Cytology of ascitic fluid also did not reveal malignancy on 10/02/2020 and 05/29/2021. Triglycerides not elevated in fluid. Basic JESÚS profile was negative 05/31/2021. SAAG 10/01/20 was 1 - not necessarily portal hypertension. Consider repeating SAAG and additional studies to look for chronic infectious or other causes of ascites, including still possible malignancy once fluid reaccumulate. Consider referral to tertiary facility. Physical Exam Narrative: Some muscle spasms today, with some improvement after muscle relaxer. does not want to stay in the hospital further, will use his muscle relaxer medication at home. Const: COMMON NORMALS: alert GENERAL APPEARANCE: cooperative ORIENTATION/CONSCIOUSNESS: Yes awake HENMT: COMMON NORMALS: normocephalic, EAC's normal, Normal external nose present and moist oral mucous membranes HEAD & SCALP: normocephalic NOSE: Normal external nose present EXTERNAL AUDITORY CANAL: EAC's normal Neck/C-Spine: COMMON NORMALS: no meningeal signs Chest: CHEST: Yes Symmetrical chest wall rise Resp: AUSCULTATION: diminished lung sounds Cardio: COMMON NORMALS: regular rate, regular rhythm and No murmurs present (Cardio) RATE: regular rate RHYTHM: regular rhythm GI: COMMON NORMALS: Normal to inspection, nondistended, normoactive bowel sounds present, Soft to palpation and non-tender PALPATION: Yes Soft to palpation OTHER: Abdomen large, soft. Extremity: COMMON NORMALS: no pedal edema Neuro: COMMON NORMALS: moves all extremities SENSORIUM/ORIENTATION: Yes alert MENINGEAL SIGNS: Yes no meningeal signs Psych: COMMON NORMALS: mental status grossly normal Skin: COMMON NORMALS: no wounds RASHES: no rashes Discharge Data Studies Completed and Pending Completed Studies During Hospitalization Category Date Time Status XR chest 1V portable [id number] Stat Exams 08/16/21 00:43 Completed CV. echo limited [id number] Routine Ultrasound 08/18/21 02:23 Completed Pending at discharge Category Date Time Status Blood Culture Stat Lab 08/16/21 01:00 Results Drug Screen Serum [Serum Drug Panel 7] Routine Lab 08/16/21 07:56 Received Radiology Impressions Chest X-Ray 08/16/21 00:43 IMPRESSION: 1. Increased interstitial markings present bilaterally may represent bilateral interstitial pneumonitis. 2. Strandy opacities in the lower hemithoraces likely represents atelectasis. Laboratory Results WBC 10.1 10^3/uL (4.0-10.0) H 08/18/21 03:42 RBC 3.16 10^6/uL (4.1-5.3) L 08/18/21 03:42 Hgb 9.2 g/dL (11.7-16.6) L 08/18/21 03:42 Hct 29.9 % (42.0-52.0) L 08/18/21 03:42 MCV 94.6 fl (80-94) H 08/18/21 03:42 MCH 29.1 pg (28.0-34.0) 08/18/21 03:42 MCHC 30.8 g/dL (30.0-36.0) 08/18/21 03:42 RDW 18.3 % (12.1-15.1) H 08/18/21 03:42 Plt Count 215 10^3/cmm (130-400) 08/18/21 03:42 MPV 9.6 fL (7.4-10.4) 08/18/21 03:42 Neut % (Auto) 84.7 % 08/18/21 03:42 Lymph % (Auto) 7.7 % 08/18/21 03:42 [place] % (Auto) 6.0 % 08/18/21 03:42 Eos % (Auto) 0.0 % 08/18/21 03:42 Baso % (Auto) 0.1 % 08/18/21 03:42 Neut # (Auto) 8.54 10^3/uL (1.8-7.7) H 08/18/21 03:42 Lymph # (Auto) 0.8 10^3/uL (0.8-4.8) 08/18/21 03:42 [place] # (Auto) 0.6 10^3/uL (0.2-0.9) 08/18/21 03:42 Eos # (Auto) 0.0 10^3/uL (0.0-0.8) 08/18/21 03:42 Baso # (Auto) 0.0 10^3/uL (0.0-0.1) 08/18/21 03:42 Nucleated RBC % (auto) 0.6 % 08/18/21 03:42 Nucleated RBCs # 0.1 /100WBC 08/18/21 03:42 Specimen Type Arterial 08/16/21 01:24 Sample Site Radial, right 08/16/21 01:24 ABG pH 7.45 (7.35-7.45) 08/16/21 01:24 ABG pCO2 48.1 mmHg (35-45) H 08/16/21 01:24 ABG pO2 42.7 mmHg (80.0-100.0) L 08/16/21 01:24 ABG HCO3 33.3 mmol/L (22-26) H 08/16/21 01:24 ABG Base Excess 8.3 mmol/L (-2.0-2.0) H 08/16/21 01:24 Alexei Test Pos 08/16/21 01:24 Hematocrit 27.3 % (42-52) L 08/16/21 01:24 O2 Delivery Device Nc 08/16/21 01:24 O2 Liters/Min 5.0 % 08/16/21 01:24 Medical Record Transcriber ID Hensa 08/16/21 01:24 Sodium 139 mmol/L (136-145) 08/18/21 03:37 Potassium 4.1 mmol/L (3.5-5.1) 08/18/21 03:37 Chloride 97 mmol/L (98-107) L 08/18/21 03:37 Carbon Dioxide 29 mmol/L (22-29) 08/18/21 03:37 Anion Gap 17.1 (5-19) 08/18/21 03:37 BUN 21 mg/dL (6-20) H 08/18/21 03:37 Creatinine 3.6 mg/dL (0.7-1.2) H 08/18/21 03:37 GFR Calculation 19.1 mL/min (90-130) L 08/18/21 03:37 Glucose 143 mg/dL (65-115) H 08/18/21 03:37 Calculated Osmolality 293 mOsm/kg (285-295) 08/18/21 03:37 Calcium 8.9 mg/dL (8.5-10.5) 08/18/21 03:37 Phosphorus 4.7 mg/dL (2.5-4.5) H 08/16/21 06:20 Magnesium 1.9 mg/dL (1.7-2.3) 08/16/21 06:20 Total Bilirubin 0.5 mg/dL (0.15-1.2) 08/18/21 03:37 AST 14 U/L (0-40) 08/18/21 03:37 ALT 7 U/L (0-41) 08/18/21 03:37 Alkaline Phosphatase 138 IU/L (40-130) H 08/18/21 03:37 Ammonia 19 umol/L (16-60) 08/16/21 07:56 Troponin T Baseline 68 ng/L (0-15) H 08/16/21 01:00 Troponin T 120 Minute 76.18 ng/L (0-15) H 08/16/21 02:58 Delta Troponin T 8.18 ABS# (0-10) 08/16/21 02:58 Troponin T Hi Sens 6Hr 62.21 ng/L (0-15) H 08/16/21 06:20 Troponin T Hi Sens 6Hr Delta -5.79 ng/L (0-12) L 08/16/21 06:20 NT-Pro-B Natriuret Pep 85357 pg/mL (0-125) H 08/16/21 01:00 Total Protein 6.9 g/dL (6.6-8.7) 08/18/21 03:37 Albumin 3.8 g/dL (3.5-5.2) 08/18/21 03:37 Globulin 3.1 g/dL (1.3-4.6) 08/18/21 03:37 Coronavirus 229E (PCR) Not detected (NOT DETECT) 08/16/21 01:44 SARS-CoV-2 (PCR) Not detected (NOT DETECT) 08/16/21 01:44 Vitals Last Vital Signs Temp 97.8 F 08/18/21 07:24 Pulse 90 08/18/21 12:28 Resp 18 08/18/21 12:28 BP 169/106 08/18/21 12:00 Pulse Ox 96 08/18/21 12:28 Discharge Plan Discharge Patient Disposition: Home Condition: Stable Prescriptions: Continued Incruse Ellipta 62.5 mcg/actuation blister with device 1 inh INHALATION DAILY Qty: 30 2RF quetiapine [Seroquel] 25 mg tablet 25 mg PO DAILY Qty: 30 1RF albuterol sulfate 2.5 mg /3 mL (0.083 %) solution for nebulization 2.5 mg inhalation BID Qty: 15 2RF albuterol sulfate [ProAir HFA] 90 mcg/actuation HFA aerosol inhaler 2 puff INHALATION QID PRN (Reason: Shortness Of Breath) Qty: 2 4RF nicotine 14 mg/24 hr patch 24 hour 1 patch transdermal DAILY Qty: 14 2RF cyclobenzaprine 10 mg tablet 10 mg PO Q12H PRN (Reason: muscle spasm) Qty: 30 0RF amoxicillin-pot clavulanate 875-125 mg tablet 1 tab PO Q12H 7 Days Qty: 14 0RF amlodipine 10 mg tablet 10 mg PO DAILY 30 Days Qty: 30 0RF pantoprazole 40 mg tablet,delayed release (DR/EC) 40 mg PO DAILY 0RF Xifaxan 550 mg tablet 550 mg PO BID 0RF aspirin 81 mg Tablet,Delayed Release (Dr/Ec) 81 mg PO DAILY Qty: 30 0RF atorvastatin 40 mg Tablet 40 mg PO BEDTIME Qty: 30 0RF clonidine HCl 0.1 mg Tablet 0.1 mg PO BID Qty: 60 0RF clopidogrel 75 mg Tablet 75 mg PO DAILY Qty: 30 0RF carvedilol 25 mg tablet 25 mg PO BID 30 Days Qty: 60 0RF isosorbide mononitrate 60 mg tablet extended release 24 hr 60 mg PO DAILY 0RF minoxidil 10 mg tablet 10 mg PO BID 0RF fluticasone propionate 50 mcg/actuation spray,suspension 2 spray INTRANASAL DAILY PRN (Reason: Allergy Symptoms) 0RF sevelamer carbonate [Renvela] 800 mg tablet See Rx Instructions .ROUTE .COMPLEX 0RF Rx Instructions: 4 tabs po tid with meals and one tab bid with snacks nitroglycerin 0.4 mg tablet, sublingual 0.4 mg sublingual Q5M PRN (Reason: chest pain) 30 Days Qty: 30 0RF Rx Instructions: do not exceed 3 doses per episode doxycycline hyclate 100 mg tablet 100 mg PO BID 8 Days Qty: 16 0RF hydralazine 50 mg Tablet 50 mg PO TID 0RF Discharge Orders: Discharge Order (Routine); Ordered 08/18/21 Ordered By: Bob Gonzalez Referrals: Mal Peres, [Primary Care Provider] - 4-7 days ([facility] will contact you to schedule an follow-up appointment in 4 to 7 days. If you haven't heard from them by Thursday. Please call ) Sanchez Harden MD [Physician] - ([facility] will contact you schedule an follow-up as needed. If you haven't heard from them by Thursday. Please call ) Rosalia Dia MD [Physician] - 2 weeks ([facility] will contact you to schedule an follow-up appointment in 2 weeks. If you haven't from them by Thursday. Please call ) Discharge Diet: As Directed and Cardiac Discharge Activity: Increase activity as tolerated Patient Instructions: Hemodialysis, Heart Failure (DC), How to Stop Smoking (GEN), Dialysis Diet (DC), Cigarette Smoking and Your Health (GEN), Chronic Hypertension (GEN), Opioid Safety Activity Restrictions/Additional Instructions: Please follow-up with your primary doctor for reassessment of pneumonia, resolution of acute on chronic respiratory failure. Complete antibiotic course as prescribed by your primary doctor with Augmentin, doxycycline. Continue oxygen at home as previously. Target oxygen saturation 92%. Continue reevaluation of ascites, paracentesis. Please continue to follow with your primary doctor regarding recurrent ascites and consideration of other causes since liver biopsy did not reveal liver cirrhosis. In case you experience worsening shortness of breath, any chest area pressure, abdominal pain, fever, nausea vomiting or inability to tolerate oral intake, or other concerning symptoms, seek medical attention. You are found to have thickening of the left side of your heart. This condition puts you at risk of heart failure, heart attack, abnormal heart rhythms. High blood pressure causes this condition to worsen. Please monitor your blood pressure at home at least 2 times daily. Target systolic blood pressure (top number) of 130 mmHg. Continue your blood pressure medications and work with your primary doctor and hose inspector and patcher to continue to improve blood pressure control. Continue to get all your dialysis treatments. Continue renal hemodialysis, cardiac diet. Please stop smoking. Discharge Attestations Time Spent in Discharge Care*: greater than 30 min Status at Discharge: Cognitive status at discharge: cognitively intact , Behavioral status at discharge: [facility] , Quality Metrics Clinical Quality Measures [ No reported AMI, CVA or VTE this stay] Coding Level of Care Code Acute Chg FW DC note Diagnoses End-stage renal disease needing dialysis N18.6; Z99.2
[2021-08-20 22:18] LABS: Amphetamine negative; Barbiturates negative; Benzodiazepines negative; Cocaine Metabolites negative; Marijuana(Tetrahydrocannabino) negative; Opiates negative; PCP (Phencyclidine) negative
== END 2021-08-18 13:21 | disposition home or self-care (01) | DRG 189 ==
LOC: ER 04:33 → CSU 04:51
PROVIDERS: Nurse Practitioner Family; Admitting Provider Internal Medicine; Emergency Provider Emergency Medicine; PCP Family Medicine; Visit Provider Internal Medicine
DX: J96.21 Acute and chronic respiratory failure with hypoxia (principal); N18.6 End stage renal disease; J18.9 Pneumonia, unspecified organism; I13.2 Hypertensive heart and chronic kidney disease with heart failure and with stage 5 chronic kidney disease, or end stage renal disease; J44.1 Chronic obstructive pulmonary disease with (acute) exacerbation; I50.32 Chronic diastolic (congestive) heart failure; R18.8 Other ascites; J96.22 Acute and chronic respiratory failure with hypercapnia; E21.3 Hyperparathyroidism, unspecified; E03.9 Hypothyroidism, unspecified; R77.8 Other specified abnormalities of plasma proteins; I27.20 Pulmonary hypertension, unspecified; F41.9 Anxiety disorder, unspecified; R25.2 Cramp and spasm; D63.8 Anemia in other chronic diseases classified elsewhere; I25.10 Atherosclerotic heart disease of native coronary artery without angina pectoris; I25.2 Old myocardial infarction; K21.9 Gastro-esophageal reflux disease without esophagitis; E78.5 Hyperlipidemia, unspecified; F17.200 Nicotine dependence, unspecified, uncomplicated; M19.90 Unspecified osteoarthritis, unspecified site; F32.A Depression, unspecified; Z95.5 Presence of coronary angioplasty implant and graft; Z99.2 Dependence on renal dialysis; Z95.1 Presence of aortocoronary bypass graft; Z79.02 Long term (current) use of antithrombotics/antiplatelets; Z79.82 Long term (current) use of aspirin; Z20.822 Contact with and (suspected) exposure to COVID-19; Z86.16 Personal history of COVID-19
CPT/HCPCS: 36415; 36600; 71045; 76705; 80053; 80307; 82140; 82803; 83735; 83880; 84100; 84484; 85025; 87040; 87635; 87641; 93005; 93308; 94640; 94660; 96365; 96375; 99283; 99291; J0456; J0696; J1885; J2270; J2930; J3490; J7050; J7611

== ENCOUNTER 2021-08-23 05:10 | Emergency (ER) | payer MEDICARE, MEDICAID, SELFPAY ==
[2021-08-23] VITALS (7 sets, daily range): BP systolic 155–193; BP diastolic 94–124; PULSE 88–102; RESP 16–36; TEMP 36.8; O2SAT 90–97; BMI 23.1
--- NOTE | 2021-08-23 05:23 | ED_ITS ---
HPI - SOB/Dyspnea General: Chief Complaint: Shortness of Breath/Dyspnea Stated Complaint: SOB ABD Pain Time Seen by Provider: 08/23/21 05:22 Source: patient Mode of arrival: wheelchair Limitations: no limitations History of Present Illness: HPI Narrative: 40-year-old male presents to the emergency room with complaint of shortness of breath. Patient is well-known and to the emergency room and is seen here frequently as well as hospitalized. He has end-stage renal disease complicated by liver failure. He has coronary artery disease congestive heart failure with a well-preserved ejection fraction. On July 24 of this year he had an angiogram with drug-eluting stent placed as well as angioplasty of a marginal branch. He is denying any chest pain at this time he presents hypertensive and severely short of breath however his sats are preserved. His oxygen sat with prabhakar pplemental oxygen is in the low 90s. Patient is chronically on oxygen. He has had frequent paracentesis his last one has been nearly a month ago. He is dialyzed on Wednesdays and Fridays. MD elicited complaint: shortness of breath Pertinent past history: congestive heart failure Onset (ago): minute(s) Context: recent illness Timing: constant Severity: moderate Exacerbating factors: lying flat, exertion and coughing Relieving factors: oxygen and upright position Known history of: COPD and congestive heart failure Associated symptoms: Reports abdominal pain and cough; Deny chest congestion, chest pain, diaphoresis, dizziness, extremity pain, fever(s), hemoptysis, lightheadedness, myalgias, nausea, orthopnea, palpitations, paresthesias, polydipsia, polyuria, rash, sense of impending doom, syncope or vomiting Treatment prior to arrival: oxygen Review of Systems Const: Denies: fever(s), chills, body aches or diaphoresis ENMT: Denies: throat pain, ear or mastoid pain, nasal discharge or nasal congestion Card: Denies: chest pain, palpitations, lightheadedness, syncope or orthopnea Resp: Reports: dyspnea, non-productive cough and wheezing; Denies: productive cough, hemoptysis or chest congestion GI: Reports: abdominal pain; Denies: nausea or vomiting : Denies: flank pain Musc: Reports: back pain; Denies: extremity pain Skin/Breast: Denies: rash or pruritus Neuro: Denies: dizziness Endo: Denies: polyuria or polydipsia PFSH ED PFSH: Medical History (HFpEF) heart failure with preserved ejection fraction Abdominal ascites Abdominal distention Abnormality of rib determined by X-ray Acute diastolic CHF (congestive heart failure) Anasarca Anemia Anxiety with depression Arteriovenous fistula for hemodialysis in place, secondary Ascites Atherosclerosis of coronary artery Chronic abdominal pain Congestive heart failure COPD (chronic obstructive pulmonary disease) COPD (chronic obstructive pulmonary disease) COVID 05/25 Current smoker Degenerative disc disease, lumbar End-stage renal disease needing dialysis End-stage renal disease on hemodialysis Gross hematuria Hemoptysis Hepatomegaly Hyperkalemia Hypertension Hypertensive emergency Ileus PHT (pulmonary hypertension) Pulmonary embolism 09/21 Inconclusive for very tiny peripheral LEFT lower lobe pulmonary artery sub segmental emboli versus poor opacification. Right heart failure with reduced right ventricular function Smoking addiction Transaminitis Urethral stricture Surgical History H/O hand surgery Amputation right 2&3 fingers 2017 History of adenoidectomy Stented coronary artery Family History Father No problems noted. Other Hypertension Social History Smoking and tobacco status: never smoked Alcohol intake: never Marital status: Number of children: 3 Current occupational status: disabled History of recent travel: No Physical Exam Const: GENERAL APPEARANCE: cooperative ORIENTATION/CONSCIOUSNESS: Yes awake, Yes oriented to person, Yes oriented to place and Yes oriented to time HENMT: COMMON NORMALS: normocephalic, atraumatic and hearing grossly normal bilaterally HEAD & SCALP: normocephalic and atraumatic Eye: COMMON NORMALS: Equal, round and reactive pupils present, EOMs intact bilaterally, conjunctivae normal and no scleral icterus CONJUNCTIVA: Yes conjunctivae normal PUPIL: Yes Equal, round and reactive pupils present Neck/C-Spine: GENERAL: Yes JVD Resp: COMMON NORMALS: normal respiratory effort, No retractions, No use of accessory muscles and clear to auscultation bilaterally AUSCULTATION: clear to auscultation bilaterally Cardio: COMMON NORMALS: regular rate, regular rhythm and No murmurs present (Cardio) RATE: regular rate RHYTHM: regular rhythm GI: COMMON NORMALS: Soft to palpation and No hepatosplenomegaly present AUSCULTATION: Yes normoactive bowel sounds PALPATION: Yes Soft to palpation, No Tenderness to palpation present (GI), No Guarding due to palpation present (GI) and Yes No hepatosplenomegaly present Extremity: COMMON NORMALS: normal to inspection, capillary refill normal, no clubbing, cyanosis or edema, no calf tenderness and no pedal edema Neuro: SENSORIUM/ORIENTATION: Yes oriented to person, Yes oriented to place and Yes oriented to time Skin: COMMON NORMALS: no rashes or lesions noted GENERAL SKIN EXAM: no rashes or lesions noted Course Vital Signs: Vital signs: Vital Signs Temperature 98.2 F 08/23/21 05:18 Pulse Rate 91 08/23/21 06:30 Respiratory Rate 28 H 08/23/21 06:30 Blood Pressure 155/95 08/23/21 06:30 Pulse Oximetry 96 08/23/21 06:30 MDM - SOB/Dyspnea Medical Decision Making SignificantSymptoms improved after Ativan. His oxygen sats are good he does not evaluate Lc certainly not enough to be causing symptoms he is doing better. Unfortunately did not bring his oxygen here that we set him up with last time. Organ to discharge him home but encouraged him to go directly to as dialysis. On his chest x-ray looks mildly fluid overloaded but he is due for dialysis today and that that would be the best treatment for him at this point return if he has problems. Medical Records I reviewed the patient's medical records. Lab Data I reviewed the patient's lab results. : 08/23/21 05:37 08/23/21 05:37 Labs/Radiology: Radiology Impressions Abdomen Ultrasound 08/23/21 05:48 IMPRESSION: Small amount of ascites. Patient does not wish to proceed with paracentesis at this time due to his anxiety. Laboratory Results WBC 7.3 10^3/uL (4.0-10.0) 08/23/21 05:37 RBC 3.05 10^6/uL (4.1-5.3) L 08/23/21 05:37 Hgb 9.1 g/dL (11.7-16.6) L 08/23/21 05:37 Hct 28.8 % (42.0-52.0) L 08/23/21 05:37 MCV 94.4 fl (80-94) H 08/23/21 05:37 MCH 29.8 pg (28.0-34.0) 08/23/21 05:37 MCHC 31.6 g/dL (30.0-36.0) 08/23/21 05:37 RDW 19.1 % (12.1-15.1) H 08/23/21 05:37 Plt Count 203 10^3/cmm (130-400) 08/23/21 05:37 MPV 10.1 fL (7.4-10.4) 08/23/21 05:37 Neut % (Auto) 71.8 % 08/23/21 05:37 Lymph % (Auto) 11.7 % 08/23/21 05:37 [place] % (Auto) 9.1 % 08/23/21 05:37 Eos % (Auto) 6.2 % 08/23/21 05:37 Baso % (Auto) 0.6 % 08/23/21 05:37 Neut # (Auto) 5.23 10^3/uL (1.8-7.7) 08/23/21 05:37 Lymph # (Auto) 0.9 10^3/uL (0.8-4.8) 08/23/21 05:37 [place] # (Auto) 0.7 10^3/uL (0.2-0.9) 08/23/21 05:37 Eos # (Auto) 0.5 10^3/uL (0.0-0.8) 08/23/21 05:37 Baso # (Auto) 0.0 10^3/uL (0.0-0.1) 08/23/21 05:37 Nucleated RBC % (auto) 0 % 08/23/21 05:37 Nucleated RBCs # 0.0 /100WBC 08/23/21 05:37 PT 16.00 SECONDS (12.1-14.9) H 08/23/21 05:37 INR 1.25 (0.8-1.2) H 08/23/21 05:37 APTT 39.0 SECONDS (23.9-36.7) H 08/23/21 05:37 Sodium 135 mmol/L (136-145) L 08/23/21 05:37 Potassium 4.6 mmol/L (3.5-5.1) 08/23/21 05:37 Chloride 95 mmol/L (98-107) L 08/23/21 05:37 Carbon Dioxide 24 mmol/L (22-29) 08/23/21 05:37 Anion Gap 20.6 (5-19) H 08/23/21 05:37 BUN 47 mg/dL (6-20) H 08/23/21 05:37 Creatinine 5.9 mg/dL (0.7-1.2) H* 08/23/21 05:37 GFR Calculation 10.8 mL/min (90-130) L 08/23/21 05:37 Glucose 81 mg/dL (65-115) 08/23/21 05:37 Calculated Osmolality 291 mOsm/kg (285-295) 08/23/21 05:37 Calcium 8.7 mg/dL (8.5-10.5) 08/23/21 05:37 Total Bilirubin 0.6 mg/dL (0.15-1.2) 08/23/21 05:37 AST 14 U/L (0-40) 08/23/21 05:37 ALT 11 U/L (0-41) 08/23/21 05:37 Alkaline Phosphatase 156 IU/L (40-130) H 08/23/21 05:37 Troponin T Baseline 77 ng/L (0-15) H 08/23/21 05:37 Troponin T 120 Minute 69.05 ng/L (0-15) H 08/23/21 07:28 Delta Troponin T -7.95 ABS# (0-10) L 08/23/21 07:28 Total Protein 7.8 g/dL (6.6-8.7) 08/23/21 05:37 Albumin 4.0 g/dL (3.5-5.2) 08/23/21 05:37 Globulin 3.8 g/dL (1.3-4.6) 08/23/21 05:37 Lipase 63 U/L (13-60) H 08/23/21 05:37 Discharge Plan Discharge Patient Disposition: Home Clinical Impression: ESRD on dialysis, COPD (chronic obstructive pulmonary disease), Hypertension, Generalized anxiety disorder with panic attacks Condition: Stable Prescriptions: No Action Incruse Ellipta 62.5 mcg/actuation blister with device 1 inh INHALATION DAILY Qty: 30 2RF quetiapine [Seroquel] 25 mg tablet 25 mg PO DAILY Qty: 30 1RF albuterol sulfate 2.5 mg /3 mL (0.083 %) solution for nebulization 2.5 mg inhalation BID Qty: 15 2RF albuterol sulfate [ProAir HFA] 90 mcg/actuation HFA aerosol inhaler 2 puff INHALATION QID PRN (Reason: Shortness Of Breath) Qty: 2 4RF nicotine 14 mg/24 hr patch 24 hour 1 patch transdermal DAILY Qty: 14 2RF cyclobenzaprine 10 mg tablet 10 mg PO Q12H PRN (Reason: muscle spasm) Qty: 30 0RF amoxicillin-pot clavulanate 875-125 mg tablet 1 tab PO Q12H 7 Days Qty: 14 0RF amlodipine 10 mg tablet 10 mg PO DAILY 30 Days Qty: 30 0RF pantoprazole 40 mg tablet,delayed release (DR/EC) 40 mg PO DAILY 0RF Xifaxan 550 mg tablet 550 mg PO BID 0RF aspirin 81 mg Tablet,Delayed Release (Dr/Ec) 81 mg PO DAILY Qty: 30 0RF atorvastatin 40 mg Tablet 40 mg PO BEDTIME Qty: 30 0RF clonidine HCl 0.1 mg Tablet 0.1 mg PO BID Qty: 60 0RF clopidogrel 75 mg Tablet 75 mg PO DAILY Qty: 30 0RF carvedilol 25 mg tablet 25 mg PO BID 30 Days Qty: 60 0RF isosorbide mononitrate 60 mg tablet extended release 24 hr 60 mg PO DAILY 0RF minoxidil 10 mg tablet 10 mg PO BID 0RF fluticasone propionate 50 mcg/actuation spray,suspension 2 spray INTRANASAL DAILY PRN (Reason: Allergy Symptoms) 0RF sevelamer carbonate [Renvela] 800 mg tablet See Rx Instructions .ROUTE .COMPLEX 0RF Rx Instructions: 4 tabs po tid with meals and one tab bid with snacks nitroglycerin 0.4 mg tablet, sublingual 0.4 mg sublingual Q5M PRN (Reason: chest pain) 30 Days Qty: 30 0RF Rx Instructions: do not exceed 3 doses per episode hydralazine 50 mg Tablet 50 mg PO TID 0RF Discharge Orders: Discharge ED (Routine); Ordered 08/23/21 Ordered By: Pato Rivera Referrals: Mal Peres, [Primary Care Provider] - Patient Instructions: Opioid Safety Activity Restrictions/Additional Instructions: Continue medications as previously prescribed. Continue to use oxygen. Proceed to dialysis from the emergency room. 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
--- NOTE | 2021-08-23 05:24 | XR_ITS ---
WS: [id number] Exam: XR chest 1V portable [id number] Date/Time of Exam: 08/23/2021 5:30 AM Reason For Exam: dyspnea/cough Compared to the most recent exam 08/14/2021. Interstitial and airspace infiltrates are noted in the mid and lower right lung. The left lung is [place] ar. The heart is enlarged but unchanged in size. No pneumothorax or pleural effusion. The mediastinum is normal in contour. Regional bony elements are intact. XR/XR chest 1V portable [id number] IMPRESSION: 1. Interstitial and airspace infiltrates in the mid and lower right lung which have worsened slightly since the prior study. The left lung has cleared since t he previous exam. 2. Cardiac enlargement unchanged.
--- NOTE | 2021-08-23 05:29 | ECG_ITS ---
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 Measurements Intervals [place] Rate: 99 P: 67 TX: 190 QRS: 83 QRSD: 117 T: 67 QT: 363 QTc: 467 Interpretive Statements SINUS RHYTHM POSSIBLE LEFT ATRIAL ENLARGEMENT [-0.1mV P-WAVE IN V1/V2] MODERATE INTRAVENTRICULAR CONDUCTION DELAY [110+ ms QRS DURATION] NONSPECIFIC T-WAVE ABNORMALITY Compared to ECG 08/16/2021 06:42:12 No significant changes Electronically Signed On 08-23-2021 23:21:59 CDT by Ruba Hussein M.D. [id number]
[2021-08-23] MEDS: labetalol 5 mg/mL SDV 20mL 10 MG IVP (05:39)
[2021-08-23] MEDS: hyDRALAzine 20 mg/mL INJ 1 mL IVP (05:39)
--- NOTE | 2021-08-23 05:48 | US_ITS ---
WS: [id number] Abdominal ultrasound, limited. History: Evaluate for ascites. Comparison: 08/15/2021. All 4 quadrants are imaged by ultrasound to evaluate for ascites. There is a small amount of ascites throughout all 4 quadrants. Loops of small bowel are mobile within the fluid. The amount of ascites is much less than the typically see on this patient prior to paracentesis. Also , the patient does not think he can proceed with paracentesis at this time. US/US abdomen lmt fluid [id number] IMPRESSION: Small amount of ascites. Patient does not wish to proceed with paracentesis at this time due to his anxi ety.
[2021-08-23 06:08] LABS: Basophils % 0.6 %; Eosinophils # 0.5 10^3/uL (0.0-0.8); Eosinophils % 6.2 %; Hematocrit 28.8 % (42.0-52.0); Hemoglobin 9.1 g/dL (11.7-16.6); Lymphocytes # 0.9 10^3/uL (0.8-4.8); Lymphocytes % 11.7 %; Mean Corpuscular HGB Conc 31.6 g/dL (30.0-36.0); Mean Corpuscular Hemoglobin 29.8 pg (28.0-34.0); Mean Corpuscular Volume 94.4 fl (80-94); Mean Platelet Volume 10.1 fL (7.4-10.4); Monocytes # 0.7 10^3/uL (0.2-0.9); Monocytes % 9.1 %; Neutrophils # 5.23 10^3/uL (1.8-7.7); Neutrophils % 71.8 %; Nucleated Red Blood Cells % 0 %; Platelet Count 203 10^3/cmm (130-400); Red Blood Count 3.05 10^6/uL (4.1-5.3); Red Cell Distribution Width 19.1 % (12.1-15.1); White Blood Count 7.3 10^3/uL (4.0-10.0)
[2021-08-23 06:30] LABS: Alanine Aminotransferase 11 U/L (0-41); Alkaline Phosphatase 156 IU/L (40-130); Anion Gap 20.6 (5-19); Aspartate Amino Transferase 14 U/L (0-40); Blood Urea Nitrogen 47 mg/dL (6-20); Calcium 8.7 mg/dL (8.5-10.5); Carbon Dioxide 24 mmol/L (22-29); Chloride 95 mmol/L (98-107); Globulin 3.8 g/dL (1.3-4.6); Glomerular Filtration Rate 10.8 mL/min (90-130); Glucose 81 mg/dL (65-115); Lipase 63 U/L (13-60); Osmolality Calculated 291 mOsm/kg (285-295); Potassium 4.6 mmol/L (3.5-5.1); Sodium 135 mmol/L (136-145); Total Bilirubin 0.6 mg/dL (0.15-1.2); Total Protein 7.8 g/dL (6.6-8.7)
[2021-08-23 06:31] LABS: Troponin(5th) Baseline 77 ng/L (0-15)
[2021-08-23 06:33] LABS: INR 1.25 (0.8-1.2)
[2021-08-23] MEDS: LORazepam 2 mg Tablet PO (06:41)
--- NOTE | 2021-08-23 07:29 | ECG_ITS ---
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 Measurements Intervals [place] Rate: 92 P: 66 PA: 168 QRS: 82 QRSD: 110 T: 60 QT: 382 QTc: 473 Interpretive Statements SINUS RHYTHM POSSIBLE LEFT ATRIAL ENLARGEMENT [-0.1mV P-WAVE IN V1/V2] NONSPECIFIC T-WAVE ABNORMALITY Compared to ECG 08/23/2021 05:36:36 Intraventricular conduction delay no longer present T-wave abnormality still present Electronically Signed On 08-23-2021 23:31:18 CDT by Ruba Hussein M.D. [id number]
[2021-08-23 07:51] LABS: Troponin 5 2HR 69.05 ng/L (0-15)
[2021-08-23 07:52] LABS: Troponin 5 2HR Delta -7.95 ABS# (0-10)
== END 2021-08-23 08:49 | disposition home or self-care (01) ==
PROVIDERS: Emergency Provider Family Medicine; PCP Family Medicine
DX: I12.0 Hypertensive chronic kidney disease with stage 5 chronic kidney disease or end stage renal disease (principal); N18.6 End stage renal disease; Z99.2 Dependence on renal dialysis; R18.8 Other ascites; J44.9 Chronic obstructive pulmonary disease, unspecified; F41.1 Generalized anxiety disorder; F41.0 Panic disorder [episodic paroxysmal anxiety]; Z79.51 Long term (current) use of inhaled steroids; Z79.82 Long term (current) use of aspirin; Z79.02 Long term (current) use of antithrombotics/antiplatelets
CPT/HCPCS: 36415; 71045; 76705; 80053; 83690; 84484; 85025; 85610; 85730; 93005; 96374; 96375; 99284; J0360; J3490

== ENCOUNTER 2021-08-24 06:59 | Emergency (ER) | payer MEDICARE, MEDICAID, SELFPAY ==
[2021-08-24 07:22] VITALS: BP 174/96; PULSE 106; RESP 25; O2SAT 92; BMI 21.0
--- NOTE | 2021-08-24 07:34 | XRR_ITS ---
PROCEDURE INFORMATION: Exam: XR Chest Exam date and time: 08/24/2021 7:58 AM Age: 40 years old Clinical indication: Cough and dyspnea; Additional info: Dyspnea/cough TECHNIQUE: Imaging protocol: XR of the chest. Views: 1 view. COMPARISON: 1. CR (CHEST, ) 08/23/2021 5:[address] angio chest w abd pel w con 08/11/2021 10:58 AM FINDINGS: Lungs: The lungs are symmetrically expanded. Mild diffuse interstitial prominence with no focal consolidation appreciated. Pleural spaces: No visible pleural effusion or pneumothorax. Heart/Mediastinum: Cardiac silhouette remains enlarged, similar to priors. Bones/joints: Posterior right 7th rib fracture with associated callus redemonstrated. XR/XR chest 1V portable [id number] IMPRESSION: Nonspecific mild diffuse interstitial prominence with no focal consolidation appreciated. Overall this appears slightly improved.
--- NOTE | 2021-08-24 07:34 | W.ED.SOB ---
HPI - SOB/Dyspnea General: Chief Complaint: Shortness of Breath/Dyspnea Stated Complaint: SOB, panic attack Time Seen by Provider: 08/24/21 07:06 Source: patient Mode of arrival: wheelchair History of Present Illness: HPI Narrative: 40-year-old male presents to the emergency room complaining of shortness of breath. Mr. Gibbs is well-known to the ER he comes in's several times a week. He was here yesterday does have increasing oxygen requirements but was due for dialysis. He was discharged to dialysis he states he did go and completed his full run of dialysis he is still complaining of shortness of breath. On arrival here he is hyperventilating. He is complaining of orthopnea which is also chronic. His oxygen saturation are in the mid to low 90s on 3-1/2 L since stayed approximately the same level and increased to 4 L. He is moderately hypertensive. He denies any chest pain. No other new or different symptoms. MD elicited complaint: shortness of breath Pertinent past history: COPD and congestive heart failure Onset (ago): month(s) Timing: constant Severity: moderate Exacerbating factors: lying flat, exertion and stress Relieving factors: oxygen and rest Known history of: COPD, congestive heart failure and other (End-stage renal disease, liver failure) Associated symptoms: Deny abdominal pain, chest congestion, chest pain, cough, diaphoresis, dizziness, extremity pain, fever(s), hemoptysis, lightheadedness, myalgias, nausea, orthopnea, palpitations, paresthesias, polydipsia, polyuria, rash, sense of impending doom, syncope or vomiting Treatment prior to arrival: oxygen Review of Systems Const: Denies: fever(s) or diaphoresis ENMT: Denies: throat pain, ear or mastoid pain, nasal discharge or nasal congestion Card: Denies: chest pain, palpitations, lightheadedness, syncope or orthopnea Resp: Denies: hemoptysis or chest congestion GI: Denies: abdominal pain, nausea or vomiting Musc: Denies: extremity pain Skin/Breast: Denies: rash or pruritus Neuro: Denies: dizziness Endo: Denies: polyuria or polydipsia PFS ED PFSH: Medical History (HFpEF) heart failure with preserved ejection fraction Abdominal ascites Abdominal distention Abnormality of rib determined by X-ray Acute diastolic CHF (congestive heart failure) Anasarca Anemia Anxiety with depression Arteriovenous fistula for hemodialysis in place, secondary Ascites Atherosclerosis of coronary artery Chronic abdominal pain Congestive heart failure COPD (chronic obstructive pulmonary disease) COPD (chronic obstructive pulmonary disease) COVID 05/25 Current smoker Degenerative disc disease, lumbar End-stage renal disease needing dialysis End-stage renal disease on hemodialysis Gross hematuria Hemoptysis Hepatomegaly Hyperkalemia Hypertension Hypertensive emergency Ileus PHT (pulmonary hypertension) Pulmonary embolism 09/21 Inconclusive for very tiny peripheral LEFT lower lobe pulmonary artery sub segmental emboli versus poor opacification. Right heart failure with reduced right ventricular function Smoking addiction Transaminitis Urethral stricture Surgical History H/O hand surgery Amputation right 2&3 fingers 2017 History of adenoidectomy Stented coronary artery Family History Father No problems noted. Other Hypertension Social History Smoking and tobacco status: never smoked Alcohol intake: never Marital status: Number of children: 3 Current occupational status: disabled History of recent travel: No Physical Exam Const: GENERAL APPEARANCE: cooperative ORIENTATION/CONSCIOUSNESS: Yes awake, Yes oriented to person, Yes oriented to place and Yes oriented to time HENMT: COMMON NORMALS: normocephalic, atraumatic and hearing grossly normal bilaterally HEAD & SCALP: normocephalic and atraumatic Resp: COMMON NORMALS: normal respiratory effort and No retractions EFFORT & INSPECTION: Yes tachypneic AUSCULTATION: crackles and diminished lung sounds Cardio: COMMON NORMALS: regular rhythm and No murmurs present (Cardio) RATE: tachycardic RHYTHM: regular rhythm GI: COMMON NORMALS: Soft to palpation and No hepatosplenomegaly present AUSCULTATION: Yes normoactive bowel sounds PALPATION: Yes Soft to palpation, No Tenderness to palpation present (GI), No Guarding due to palpation present (GI) and Yes No hepatosplenomegaly present Extremity: COMMON NORMALS: normal to inspection, capillary refill normal and no calf tenderness GENERAL: Yes edema (Lower extremities bilaterally) Neuro: SENSORIUM/ORIENTATION: Yes oriented to person, Yes oriented to place and Yes oriented to time Skin: COMMON NORMALS: no rashes or lesions noted GENERAL SKIN EXAM: no rashes or lesions noted Course Vital Signs: Vital signs: Vital Signs Pulse Rate 92 08/24/21 09:25 Respiratory Rate 16 08/24/21 09:25 Blood Pressure 188/94 08/24/21 09:25 Pulse Oximetry 95 08/24/21 09:25 MDM - SOB/Dyspnea Medical Decision Making Patient is due for dialysis this morning his oxygen sats remain good. At this point I think the best thing for him to do is to go ahead and get dialysis done. He is not hyperkalemic at the moment he remains subjectively short of breath. His blood pressure is elevated but I think taking his medications this morning as well as getting his dialysis completed will help that. We will discharge him to dialysis to complete his dialysis symptoms persist he can return. Medical Records I reviewed the patient's medical records. Lab Data I reviewed the patient's lab results. : 08/24/21 07:42 08/24/21 07:42 Labs/Radiology: Radiology Impressions Chest X-Ray 08/24/21 07:34 IMPRESSION: Nonspecific mild diffuse interstitial prominence with no focal consolidation appreciated. Overall this appears slightly improved. Laboratory Results WBC 6.4 10^3/uL (4.0-10.0) 08/24/21 07:42 RBC 2.99 10^6/uL (4.1-5.3) L 08/24/21 07:42 Hgb 8.9 g/dL (11.7-16.6) L 08/24/21 07:42 Hct 28.4 % (42.0-52.0) L 08/24/21 07:42 MCV 95.0 fl (80-94) H 08/24/21 07:42 MCH 29.8 pg (28.0-34.0) 08/24/21 07:42 MCHC 31.3 g/dL (30.0-36.0) 08/24/21 07:42 RDW 19.2 % (12.1-15.1) H 08/24/21 07:42 Plt Count 186 10^3/cmm (130-400) 08/24/21 07:42 MPV 9.5 fL (7.4-10.4) 08/24/21 07:42 Neut % (Auto) 71.3 % 08/24/21 07:42 Lymph % (Auto) 11.5 % 08/24/21 07:42 Mclean % (Auto) 10.4 % 08/24/21 07:42 Eos % (Auto) 5.7 % 08/24/21 07:42 Baso % (Auto) 0.5 % 08/24/21 07:42 Neut # (Auto) 4.55 10^3/uL (1.8-7.7) 08/24/21 07:42 Lymph # (Auto) 0.7 10^3/uL (0.8-4.8) L 08/24/21 07:42 Mclean # (Auto) 0.7 10^3/uL (0.2-0.9) 08/24/21 07:42 Eos # (Auto) 0.4 10^3/uL (0.0-0.8) 08/24/21 07:42 Baso # (Auto) 0.0 10^3/uL (0.0-0.1) 08/24/21 07:42 Nucleated RBC % (auto) 0 % 08/24/21 07:42 Nucleated RBCs # 0.0 /100WBC 08/24/21 07:42 Specimen Type Arterial 08/24/21 08:02 Sample Site Radial, right 08/24/21 08:02 ABG pH 7.42 (7.35-7.45) 08/24/21 08:02 ABG pCO2 42.2 mmHg (35-45) 08/24/21 08:02 ABG pO2 76.9 mmHg (80.0-100.0) L 08/24/21 08:02 ABG HCO3 27.0 mmol/L (22-26) H 08/24/21 08:02 ABG O2 Saturation 96.6 08/24/21 08:02 ABG Base Excess 2.2 mmol/L (-2.0-2.0) H 08/24/21 08:02 Alexei Test Pos 08/24/21 08:02 A-a O2 Gradient 16.5 mmHg (5-10) H 08/24/21 08:02 Hematocrit 24.5 % (42-52) L 08/24/21 08:02 Hgb O2 Saturation 93.1 % (95-100) L 08/24/21 08:02 Carboxyhemoglobin 2.6 %THgb (0.4-20.1) 08/24/21 08:02 Methemoglobin 1.1 % (0.4-1.5) 08/24/21 08:02 Total Hemoglobin 8.0 g/dL (14-18) L 08/24/21 08:02 Sodium 138.0 mmol/L (131-143) 08/24/21 08:02 Potassium 4.4 mmol/L (3.5-5.0) 08/24/21 08:02 Glucose 87.0 mg/dL (70-115) 08/24/21 08:02 Ionized Calcium 1.3 mmol/L (1.1-1.4) 08/24/21 08:02 O2 Delivery Device Nc 08/24/21 08:02 O2 Liters/Min 4.0 % 08/24/21 08:02 FiO2 36.0 % 08/24/21 08:02 Ems Helicopter Pilot ID [place] 08/24/21 08:02 Sodium 136 mmol/L (136-145) 08/24/21 07:42 Potassium 4.5 mmol/L (3.5-5.1) 08/24/21 07:42 Chloride 98 mmol/L (98-107) 08/24/21 07:42 Carbon Dioxide 25 mmol/L (22-29) 08/24/21 07:42 Anion Gap 17.5 (5-19) 08/24/21 07:42 BUN 43 mg/dL (6-20) H 08/24/21 07:42 Creatinine 5.2 mg/dL (0.7-1.2) H 08/24/21 07:42 GFR Calculation 12.5 mL/min (90-130) L 08/24/21 07:42 Glucose 85 mg/dL (65-115) 08/24/21 07:42 Calculated Osmolality 292 mOsm/kg (285-295) 08/24/21 07:42 Calcium 9.0 mg/dL (8.5-10.5) 08/24/21 07:42 Discharge Plan Discharge Patient Disposition: Home Clinical Impression: Generalized anxiety disorder with panic attacks, Hypertension, COPD (chronic obstructive pulmonary disease), Atherosclerosis of coronary artery, ESRD on dialysis, Chronic respiratory failure Condition: Stable Prescriptions: New clonazepam 0.5 mg tablet 0.5 mg PO TID Qty: 90 0RF No Action Incruse Ellipta 62.5 mcg/actuation blister with device 1 inh INHALATION DAILY Qty: 30 2RF quetiapine [Seroquel] 25 mg tablet 25 mg PO DAILY Qty: 30 1RF albuterol sulfate 2.5 mg /3 mL (0.083 %) solution for nebulization 2.5 mg inhalation BID Qty: 15 2RF albuterol sulfate [ProAir HFA] 90 mcg/actuation HFA aerosol inhaler 2 puff INHALATION QID PRN (Reason: Shortness Of Breath) Qty: 2 4RF nicotine 14 mg/24 hr patch 24 hour 1 patch transdermal DAILY Qty: 14 2RF cyclobenzaprine 10 mg tablet 10 mg PO Q12H PRN (Reason: muscle spasm) Qty: 30 0RF amlodipine 10 mg tablet 10 mg PO DAILY 30 Days Qty: 30 0RF pantoprazole 40 mg tablet,delayed release (DR/EC) 40 mg PO DAILY 0RF Xifaxan 550 mg tablet 550 mg PO BID 0RF aspirin 81 mg Tablet,Delayed Release (Dr/Ec) 81 mg PO DAILY Qty: 30 0RF atorvastatin 40 mg Tablet 40 mg PO BEDTIME Qty: 30 0RF clonidine HCl 0.1 mg Tablet 0.1 mg PO BID Qty: 60 0RF clopidogrel 75 mg Tablet 75 mg PO DAILY Qty: 30 0RF carvedilol 25 mg tablet 25 mg PO BID 30 Days Qty: 60 0RF isosorbide mononitrate 60 mg tablet extended release 24 hr 60 mg PO DAILY 0RF fluticasone propionate 50 mcg/actuation spray,suspension 2 spray INTRANASAL DAILY PRN (Reason: Allergy Symptoms) 0RF sevelamer carbonate [Renvela] 800 mg tablet See Rx Instructions .ROUTE .COMPLEX 0RF Rx Instructions: 4 tabs po tid with meals and one tab bid with snacks minoxidil 2.5 mg tablet 2.5 mg PO BID 0RF nitroglycerin 0.4 mg tablet, sublingual 0.4 mg sublingual Q5M PRN (Reason: chest pain) 30 Days Qty: 30 0RF Rx Instructions: do not exceed 3 doses per episode hydralazine 50 mg Tablet 50 mg PO TID 0RF Discharge Orders: Discharge ED (Routine); Ordered 08/24/21 Ordered By: Pato Rivera Referrals: Mal Peres, [Primary Care Provider] - Discharge Diet: Usual diet Discharge Activity: Resume usual activity Patient Instructions: Opioid Safety Activity Restrictions/Additional Instructions: Follow-up with your primary care doctor on Thursday or Thursday Coding Level of Care Code ED Hearings Reporter for Chg Fwd Exam Detailed
[2021-08-24] MEDS: LORazepam 2 mg/mL INJ 1 mL IVP (07:41)
[2021-08-24 07:45] VITALS: BP 174/96; PULSE 90; RESP 16; O2SAT 93
[2021-08-24 07:51] LABS: Basophils % 0.5 %; Eosinophils # 0.4 10^3/uL (0.0-0.8); Eosinophils % 5.7 %; Hematocrit 28.4 % (42.0-52.0); Hemoglobin 8.9 g/dL (11.7-16.6); Lymphocytes # 0.7 10^3/uL (0.8-4.8); Lymphocytes % 11.5 %; Mean Corpuscular HGB Conc 31.3 g/dL (30.0-36.0); Mean Corpuscular Hemoglobin 29.8 pg (28.0-34.0); Mean Platelet Volume 9.5 fL (7.4-10.4); Monocytes # 0.7 10^3/uL (0.2-0.9); Monocytes % 10.4 %; Neutrophils # 4.55 10^3/uL (1.8-7.7); Neutrophils % 71.3 %; Nucleated Red Blood Cells % 0 %; Platelet Count 186 10^3/cmm (130-400); Red Blood Count 2.99 10^6/uL (4.1-5.3); Red Cell Distribution Width 19.2 % (12.1-15.1); White Blood Count 6.4 10^3/uL (4.0-10.0)
[2021-08-24 08:11] LABS: Anion Gap 17.5 (5-19); Blood Urea Nitrogen 43 mg/dL (6-20); Carbon Dioxide 25 mmol/L (22-29); Chloride 98 mmol/L (98-107); Glomerular Filtration Rate 12.5 mL/min (90-130); Glucose 85 mg/dL (65-115); Osmolality Calculated 292 mOsm/kg (285-295); Potassium 4.5 mmol/L (3.5-5.1); Sodium 136 mmol/L (136-145)
[2021-08-24 08:13] LABS: ABG PCO2 42.2 mmHg (35-45); ABG PH Result 7.42 (7.35-7.45); Alveolar-Arterial Oxygen Gradi 16.5 mmHg (5-10); Arterial Blood Gas Hematocrit 24.5 % (42-52); Base Excess ABG 2.2 mmol/L (-2.0-2.0); Blood Gas Allen Test Pos; Blood Gas Operator Identificat CAAK; Blood Gas Sample Site Radial, right; Blood Gas Sample Type Arterial; Carboxyhemoglobin 2.6 %THgb (0.4-20.1); HGB O2 Sat 93.1 % (95-100); Ionized Calcium Level - ABG 1.3 mmol/L (1.1-1.4); Methemoglobin 1.1 % (0.4-1.5); Oxygen Device NC; Oxygen Saturation ABG 96.6; PO2 ABG 76.9 mmHg (80.0-100.0); Potassium Level - ABG 4.4 mmol/L (3.5-5.0)
[2021-08-24 09:25] VITALS: BP 188/94; PULSE 92; RESP 16; O2SAT 95
[2021-08-24] MEDS: CLONazepam 0.5 mg Tablet PO (09:25)
== END 2021-08-24 09:26 | disposition home or self-care (01) ==
PROVIDERS: Emergency Provider Family Medicine; PCP Family Medicine
DX: F41.1 Generalized anxiety disorder (principal); F41.0 Panic disorder [episodic paroxysmal anxiety]; J44.9 Chronic obstructive pulmonary disease, unspecified; I25.10 Atherosclerotic heart disease of native coronary artery without angina pectoris; I12.0 Hypertensive chronic kidney disease with stage 5 chronic kidney disease or end stage renal disease; N18.6 End stage renal disease; J96.10 Chronic respiratory failure, unspecified whether with hypoxia or hypercapnia; Z99.2 Dependence on renal dialysis; Z79.82 Long term (current) use of aspirin
CPT/HCPCS: 36600; 71045; 80048; 80051; 82330; 82805; 85025; 96374; 99283; J2060

== ENCOUNTER 2021-08-25 07:04 | Inpatient (IN) | payer MEDICARE, MEDICAID, SELFPAY ==
[2021-08-25] VITALS (55 sets, daily range): BP systolic 148–210; BP diastolic 73–140; PULSE 85–99; RESP 13–32; TEMP 36.6–37.2; O2SAT 89–99; BMI 22.1
--- NOTE | 2021-08-25 07:28 | XRR_ITS ---
PROCEDURE INFORMATION: Exam: XR Chest Exam date and time: 08/25/2021 7:40 AM Age: 40 years old Clinical indication: Pain; Chest pressure; Additional info: Chest pain TECHNIQUE: Imaging protocol: XR of the chest. Views: 1 view. COMPARISON: CR (CHEST, ) 08/24/2021 7:58 AM FINDINGS: Lungs: Diffusely increased interstitial markings with some worsening in the interval. No focal consolidation. Pleural spaces: Unremarkable. No pleural effusion. No pneumothorax. Heart/Mediastinum: Cardiac silhouette remains moderately enlarged. Bones/joints: Posterior right 7th rib fracture with associated callus redemonstrated. XR/XR chest 1V portable [id number] IMPRESSION: Diffusely increased interstitial markings with some worsening in the interval. Findings suggestive of congestive failure versus atypical.
--- NOTE | 2021-08-25 07:32 | ED_ITS ---
HPI - SOB/Dyspnea General: Chief Complaint: Chest Pain Stated Complaint: SOB, chest pain, anxiety Time Seen by Provider: 08/25/21 07:08 Source: patient and family Mode of arrival: wheelchair Limitations: no limitations History of Present Illness: HPI Narrative: Patient is a 40-year-old male well-known to the emergency department here with complaints of shortness of breath and chest pain. This will be patient's third ED visit in the last 48-72 hours. Patient is chronically on 3L of oxygen. Significant other in the room states she has increased to this due to him complaining of shortness of breath. Patient did receive dialysis on Thursday. He has plans to receive dialysis again tomorrow. On arrival he is hyperventilating. Oxygen is currently roughly 92% on 3.5 to 4 L. He is hypertensive but reportedly has not taken his home blood pressure medications this morning as he normally takes them at 9 AM. He does complain of chest pain today. MD elicited complaint: shortness of breath and chest pain Pertinent past history: congestive heart failure and other (liver failure, kidney failure) Onset (ago): hour(s) Timing: constant Severity: moderate Associated symptoms: Reports chest pain and orthopnea (chronic); Deny abdominal pain, extremity pain, fever(s), hemoptysis, nausea, palpitations, syncope or vomiting Related Data: Home oxygen amount: 3 liters Review of Systems Const: Denies: fever(s), chills, body aches, fatigue or malaise Eyes: Denies: change in vision Card: Reports: chest pain, dyspnea on exertion (chronic) and orthopnea (chronic); Denies: palpitations, irregular heart rhythm, syncope or pre-syncope Resp: Reports: dyspnea; Denies: wheezing, stridor or hemoptysis GI: Denies: abdominal pain, nausea, vomiting or diarrhea Musc: Denies: neck pain, back pain, extremity pain or joint pain Skin/Breast: Denies: rash Neuro: Denies: headache(s) [facility] ED PFSH: Medical History (HFpEF) heart failure with preserved ejection fraction Abdominal ascites Abdominal distention Abnormality of rib determined by X-ray Acute diastolic CHF (congestive heart failure) Anasarca Anemia Anxiety with depression Arteriovenous fistula for hemodialysis in place, secondary Ascites Atherosclerosis of coronary artery Chronic abdominal pain Congestive heart failure COPD (chronic obstructive pulmonary disease) COPD (chronic obstructive pulmonary disease) COVID 05/25 Current smoker Degenerative disc disease, lumbar End-stage renal disease needing dialysis End-stage renal disease on hemodialysis Gross hematuria Hemoptysis Hepatomegaly Hyperkalemia Hypertension Hypertensive emergency Ileus PHT (pulmonary hypertension) Pulmonary embolism 09/21 Inconclusive for very tiny peripheral LEFT lower lobe pulmonary artery sub segmental emboli versus poor opacification. Right heart failure with reduced right ventricular function Smoking addiction Transaminitis Urethral stricture Surgical History H/O hand surgery Amputation right 2&3 fingers 2017 History of adenoidectomy Stented coronary artery Family History Father No problems noted. Other Hypertension Social History Smoking and tobacco status: never smoked Alcohol intake: never Marital status: Number of children: 3 Current occupational status: disabled History of recent travel: No Physical Exam Const: COMMON NORMALS: patient oriented x3, no limitations and alert GENERAL APPEARANCE: cooperative, in distress (respiratory-tachypnea with accessory muscle use), anxious and other (chronically ill appearing) ORIENTATION/CONSCIOUSNESS: Yes awake, Yes oriented to person, Yes oriented to place and Yes oriented to time HENMT: COMMON NORMALS: normocephalic and atraumatic HEAD & SCALP: normocephalic and atraumatic Chest: COMMONS NORMALS: normal inspection of the chest and normal palpation of entire chest wall Resp: COMMON NORMALS: clear to auscultation bilaterally EFFORT & INSPECTION: Yes tachypneic, No stridor, No Actively coughing, No retractions and Yes uses accessory muscles AUSCULTATION: clear to auscultation bilaterally Cardio: COMMON NORMALS: regular rate and regular rhythm RATE: regular rate RHYTHM: regular rhythm GI: INSPECTION: Yes abdominal distension (chronic ascities) Extremity: COMMON NORMALS: normal to inspection GENERAL: Yes normal exam except as noted Neuro: GWEN COMA SCALE: document GCS findings [place] coma scale eye opening: Spontaneous [place] coma scale verbal response: Orientated [place] coma scale motor response: Obey commands [place] coma scale total score: 15 COMMON NORMALS: patient oriented x3, moves all extremities, no focal motor deficits and no sensory deficits noted SENSORIUM/ORIENTATION: Yes alert, Yes oriented to person, Yes oriented to place and Yes oriented to time Skin: COMMON NORMALS: no rashes or lesions noted GENERAL SKIN EXAM: no rashes or lesions noted Course Reevaluation(s): Reevaluation #1: Patient appears improved after IV Ativan. Breathing has slowed. He is currently satting at 93% on 3.5L O2 which is baseline for patient. Vital Signs: Vital signs: Vital Signs Temperature 98.0 F 08/25/21 07:45 Pulse Rate 89 08/25/21 11:03 Respiratory Rate 22 H 08/25/21 11:03 Blood Pressure 171/111 08/25/21 07:57 Pulse Oximetry 95 08/25/21 11:03 MDM - SOB/Dyspnea Medical Decision Making Patient is a 40-year-old male with a history of chronic respiratory failure, chronically uncontrolled hypertension, ESRD on MWF dialysis, chronic/recurrent ascites, CHF, anxiety who is well-known to our emergency department here for complaints of chest pain, shortness of breath, anxiety. This makes patient's third visit in 3 days for similar symptoms. He arrived very anxious and tachypneic. This has improved after IV Ativan. During throughout most of his stay he did not require any additional oxygen and was satting at roughly 93% on his normal 3.5L O2. He did later start requiring more O2 to maintain saturations. His ABG is stable compared to previous. CXR does show some increased interstitial markings when compared to films performed yesterday. Baseline trop is elevated (chronically elevated) likely multifactorial secondary to kidney functions and fluid status/pulmonary edema. Delta is negative. EKG w/o ischemic findings and no change from previous. His kidney functions today are 63/7.1 which are worse than his baseline. He did receive dialysis on Thursday and is scheduled for dialysis tomorrow. I initially spoke to hospitalist Dr. Umana who recommended consulting with nephrology and felt he most likely could go home if cleared from a nephrology standpoint. I spoke to Dr. Salazar who will consult on patient but felt he most likely could be discharged home with instructions for scheduled dialysis tomorrow. Dr. Umana later decided to keep patient stating if he were to be discharged-he most likely would return yet again later this evening which I agree would most likely happen. Dr. Umana will admit to ICU. Of note patient was found smoking in his room while on 4L of oxygen. Lab Data : 08/25/21 07:40 08/25/21 07:40 Labs/Radiology: Radiology Impressions Chest X-Ray 08/25/21 07:28 IMPRESSION: Diffusely increased interstitial markings with some worsening in the interval. Findings suggestive of congestive failure versus atypical. Laboratory Results WBC 7.8 10^3/uL (4.0-10.0) 08/25/21 07:40 RBC 3.04 10^6/uL (4.1-5.3) L 08/25/21 07:40 Hgb 9.1 g/dL (11.7-16.6) L 08/25/21 07:40 Hct 28.1 % (42.0-52.0) L 08/25/21 07:40 MCV 92.4 fl (80-94) 08/25/21 07:40 MCH 29.9 pg (28.0-34.0) 08/25/21 07:40 MCHC 32.4 g/dL (30.0-36.0) 08/25/21 07:40 RDW 18.6 % (12.1-15.1) H 08/25/21 07:40 Plt Count 171 10^3/cmm (130-400) 08/25/21 07:40 MPV 9.7 fL (7.4-10.4) 08/25/21 07:40 Neut % (Auto) 76.1 % 08/25/21 07:40 Lymph % (Auto) 8.9 % 08/25/21 07:40 [place] % (Auto) 8.9 % 08/25/21 07:40 Eos % (Auto) 5.0 % 08/25/21 07:40 Baso % (Auto) 0.5 % 08/25/21 07:40 Neut # (Auto) 5.95 10^3/uL (1.8-7.7) 08/25/21 07:40 Lymph # (Auto) 0.7 10^3/uL (0.8-4.8) L 08/25/21 07:40 [place] # (Auto) 0.7 10^3/uL (0.2-0.9) 08/25/21 07:40 Eos # (Auto) 0.4 10^3/uL (0.0-0.8) 08/25/21 07:40 Baso # (Auto) 0.0 10^3/uL (0.0-0.1) 08/25/21 07:40 Nucleated RBC % (auto) 0 % 08/25/21 07:40 Nucleated RBCs # 0.0 /100WBC 08/25/21 07:40 Specimen Type Arterial 08/25/21 07:41 Sample Site Brachial, right 08/25/21 07:41 ABG pH 7.41 (7.35-7.45) 08/25/21 07:41 ABG pCO2 39.6 mmHg (35-45) 08/25/21 07:41 ABG pO2 68.3 mmHg (80.0-100.0) L 08/25/21 07:41 ABG HCO3 24.8 mmol/L (22-26) 08/25/21 07:41 ABG O2 Saturation 94.7 08/25/21 07:41 ABG Base Excess 0.1 mmol/L (-2.0-2.0) 08/25/21 07:41 Alexei Test Pos 08/25/21 07:41 A-a O2 Gradient 18.0 mmHg (5-10) H 08/25/21 07:41 Hematocrit 23.5 % (42-52) L 08/25/21 07:41 Hgb O2 Saturation 91.3 % (95-100) L 08/25/21 07:41 Carboxyhemoglobin 2.5 %THgb (0.4-20.1) 08/25/21 07:41 Methemoglobin 1.1 % (0.4-1.5) 08/25/21 07:41 Total Hemoglobin 7.7 g/dL (14-18) L 08/25/21 07:41 Sodium 138.0 mmol/L (131-143) 08/25/21 07:41 Potassium 4.8 mmol/L (3.5-5.0) 08/25/21 07:41 Glucose 86.0 mg/dL (70-115) 08/25/21 07:41 Ionized Calcium 1.2 mmol/L (1.1-1.4) 08/25/21 07:41 O2 Delivery Device Nc 08/25/21 07:41 O2 Liters/Min 4.0 % 08/25/21 07:41 FiO2 36.0 % 08/25/21 07:41 [employer] Designer ID Cak 08/25/21 07:41 Sodium 130 mmol/L (136-145) L 08/25/21 07:40 Potassium 4.7 mmol/L (3.5-5.1) 08/25/21 07:40 Chloride 92 mmol/L (98-107) L 08/25/21 07:40 Carbon Dioxide 23 mmol/L (22-29) 08/25/21 07:40 Anion Gap 19.7 (5-19) H 08/25/21 07:40 BUN 63 mg/dL (6-20) H 08/25/21 07:40 Creatinine 7.1 mg/dL (0.7-1.2) H* 08/25/21 07:40 GFR Calculation 8.7 mL/min (90-130) L 08/25/21 07:40 Glucose 88 mg/dL (65-115) 08/25/21 07:40 Calculated Osmolality 287 mOsm/kg (285-295) 08/25/21 07:40 Lactic Acid 0.8 mmol/L (0.5-2.2) 08/25/21 07:40 Calcium 9.3 mg/dL (8.5-10.5) 08/25/21 07:40 Total Bilirubin 0.8 mg/dL (0.15-1.2) 08/25/21 07:40 AST 14 U/L (0-40) 08/25/21 07:40 ALT 10 U/L (0-41) 08/25/21 07:40 Alkaline Phosphatase 171 IU/L (40-130) H 08/25/21 07:40 Troponin T Baseline 85 ng/L (0-15) H 08/25/21 07:40 Troponin T 120 Minute 77.03 ng/L (0-15) H 08/25/21 09:42 Delta Troponin T -7.97 ABS# (0-10) L 08/25/21 09:42 C-Reactive Protein 22.3 mg/L (0.0-4.9) H 08/25/21 07:40 Total Protein 8.2 g/dL (6.6-8.7) 08/25/21 07:40 Albumin 4.2 g/dL (3.5-5.2) 08/25/21 07:40 Globulin 4.0 g/dL (1.3-4.6) 08/25/21 07:40 Procalcitonin 0.58 ng/mL (0-0.5) H 08/25/21 07:40 TSH 2.08 uIU/mL (0.27-4.20) 08/25/21 07:40 EKG Data EKG 1: EKG Interpretation Date: 08/25/21 EKG interpretation time: 07:18 Interpretation: Sinus rhythm Rate [address] elevation or depression noted No acute changes when compared to EKG performed two days ago Discharge Plan Discharge Patient Disposition: Admitted As Inpatient Admit Provider: Tunde Umana Clinical Impression: Chronic respiratory failure, Hypertensive urgency, COPD (chronic obstructive pulmonary disease), Acute respiratory failure with hypoxia, ESRD on dialysis, Generalized anxiety disorder with panic attacks Condition: Stable Coding Level of Care Code ED [employer] Architect for Chg Fwd Exam Comprehensive
[2021-08-25 07:53] LABS: Basophils % 0.5 %; Eosinophils # 0.4 10^3/uL (0.0-0.8); Hematocrit 28.1 % (42.0-52.0); Hemoglobin 9.1 g/dL (11.7-16.6); Lymphocytes # 0.7 10^3/uL (0.8-4.8); Lymphocytes % 8.9 %; Mean Corpuscular HGB Conc 32.4 g/dL (30.0-36.0); Mean Corpuscular Hemoglobin 29.9 pg (28.0-34.0); Mean Corpuscular Volume 92.4 fl (80-94); Mean Platelet Volume 9.7 fL (7.4-10.4); Monocytes # 0.7 10^3/uL (0.2-0.9); Monocytes % 8.9 %; Neutrophils # 5.95 10^3/uL (1.8-7.7); Neutrophils % 76.1 %; Nucleated Red Blood Cells % 0 %; Platelet Count 171 10^3/cmm (130-400); Red Blood Count 3.04 10^6/uL (4.1-5.3); Red Cell Distribution Width 18.6 % (12.1-15.1); White Blood Count 7.8 10^3/uL (4.0-10.0)
[2021-08-25 07:53] LABS: Blood Gas Allen Test Pos; Blood Gas Operator Identificat CAK; Blood Gas Sample Type Arterial; Carboxyhemoglobin 2.5 %THgb (0.4-20.1); Oxygen Device NC
[2021-08-25] MEDS: amlodipine 10 mg Tablet PO (07:57)
[2021-08-25] MEDS: LORazepam 2 mg/mL INJ 1 mL IVP ×2 (07:57→09:11)
[2021-08-25] MEDS: cloNIDine 0.1 mg Tablet PO ×2 (07:57→20:38)
[2021-08-25] MEDS: hyDRALAzine 25 mg Tablet PO (07:57)
[2021-08-25] MEDS: carvedilol 25 mg Tablet PO ×2 (07:57→20:39)
[2021-08-25 08:06] LABS: ABG PCO2 39.6 mmHg (35-45); ABG PH Result 7.41 (7.35-7.45); Arterial Blood Gas Hematocrit 23.5 % (42-52); Base Excess ABG 0.1 mmol/L (-2.0-2.0); Blood Gas Sample Site Brachial, right; HCO3 ABG 24.8 mmol/L (22-26); HGB O2 Sat 91.3 % (95-100); Ionized Calcium Level - ABG 1.2 mmol/L (1.1-1.4); Methemoglobin 1.1 % (0.4-1.5); Oxygen Saturation ABG 94.7; PO2 ABG 68.3 mmHg (80.0-100.0); Potassium Level - ABG 4.8 mmol/L (3.5-5.0); Total Hemoglobin 7.7 g/dL (14-18)
[2021-08-25 08:21] LABS: Alanine Aminotransferase 10 U/L (0-41); Albumin Level 4.2 g/dL (3.5-5.2); Alkaline Phosphatase 171 IU/L (40-130); Anion Gap 19.7 (5-19); Aspartate Amino Transferase 14 U/L (0-40); Blood Urea Nitrogen 63 mg/dL (6-20); Calcium 9.3 mg/dL (8.5-10.5); Carbon Dioxide 23 mmol/L (22-29); Chloride 92 mmol/L (98-107); Glomerular Filtration Rate 8.7 mL/min (90-130); Glucose 88 mg/dL (65-115); Osmolality Calculated 287 mOsm/kg (285-295); Potassium 4.7 mmol/L (3.5-5.1); Sodium 130 mmol/L (136-145); Total Bilirubin 0.8 mg/dL (0.15-1.2); Total Protein 8.2 g/dL (6.6-8.7)
[2021-08-25 08:25] LABS: Troponin(5th) Baseline 85 ng/L (0-15)
--- NOTE | 2021-08-25 09:28 | ECG_ITS ---
[facility] Test Date: 2021-08-25 Pat Name: Mal Gibbs Department: Room: Gender: Male Mystery Shopper: : 1980 Requested By: Elizabeth Malave Order Number: [id number] Rajan MD: Brijesh King M.D. Measurements Intervals [place] Rate: 99 P: 64 OR: 200 QRS: 81 QRSD: 104 T: 79 QT: 349 QTc: 448 Interpretive Statements SINUS RHYTHM POSSIBLE LEFT ATRIAL ENLARGEMENT [-0.1mV P-WAVE IN V1/V2] Compared to ECG 08/23/2021 07:28:30 T-wave abnormality no longer present Electronically Signed On 08-25-2021 19:32:21 CDT by Brijesh King M.D. [id number]
[2021-08-25] MEDS: ipratropium-albuterol 3 mL Neb INHALATION ×3 (10:09→20:00)
[2021-08-25 10:11] LABS: Troponin 5 2HR 77.03 ng/L (0-15)
--- NOTE | 2021-08-25 10:35 | P.HP_ITS ---
Providers/Chief Complaint Primary Care Provider: Mal Peres DO Chief Complaint: SOB, chest pain, anxiety History of Present Illness Mal Gibbs is a 40 year old male with a past medical history of CAD, status post stenting in July 2021, history of hypertension, history of diastolic CHF, history of recurrent fluid overload, history of recurrent abdominal ascites, heart failure with preserved ejection fraction, right RV dysfunction, COPD, history of end-stage renal disease on dialysis, who presents to [facility] due to increasing shortness of breath. Currently patient's in tripod position, no nasal flaring, no intercostal retractions, on 5 L, saturating the mid 90s, and he is complaining of shortness of breath, he also reports a cough, no fevers, no chills, no chest pain. He is adamant that he went to dialysis on Thursday. He is hypertensive, systolic blood pressure in the 190s, diastolic blood pressure in the 140s, he is adamant that he took all his medications this morning, no nausea, no vomiting, no headache, no blurry vision, no chest pain. Review of Systems Const: Denies: fever(s), chills, fatigue or malaise Eyes: Denies: change in vision or blurry vision ENMT: Denies: nasal congestion Resp: Denies: wheezing GI: Denies: abdominal pain, nausea, vomiting, hematemesis, diarrhea, constipat ion, hematochezia or melena : Denies: flank pain, difficulty urinating, dysuria or urinary frequency Musc: Denies: neck pain or back pain Skin/Breast: Denies: rash Neuro: Denies: headache(s), dizziness or vertigo Endo: Denies: polyuria or polydipsia Medications/Allergies Home Medications Medication Instructions Recorded Confirmed Last Taken Type pantoprazole 40 mg tablet,delayed 40 mg PO DAILY 02/25/21 08/16/21 08/15/21 History release rifaximin 550 mg tablet (Xifaxan) 550 mg PO BID 06/10/21 08/16/21 08/15/21 History amlodipine 10 mg tablet 10 mg PO DAILY 30 Days #30 tab 07/16/21 08/16/21 08/15/21 Rx aspirin 81 mg tablet,delayed 81 mg PO DAILY #30 tab 07/25/21 08/16/21 08/15/21 Rx release atorvastatin 40 mg tablet 40 mg PO BEDTIME #30 tab 07/25/21 08/16/21 08/15/21 Rx carvedilol 25 mg tablet 25 mg PO BID 30 Days #60 tab 07/25/21 08/16/21 08/15/21 Rx clonidine HCl 0.1 mg tablet 0.1 mg PO BID #60 tab 07/25/21 08/16/21 08/15/21 Rx clopidogrel 75 mg tablet 75 mg PO DAILY #30 tab 07/25/21 08/16/21 08/15/21 Rx nitroglycerin 0.4 mg sublingual 0.4 mg SUBLINGUAL Q5M PRN 30 Days 08/05/21 08/16/21 Unknown Rx tablet #30 tab albuterol sulfate 2.5 mg (3 mL) INHALATION BID #15 ml 08/06/21 08/16/21 08/15/21 Rx albuterol sulfate 90 mcg/actuation 2 puff INHALATION QID PRN #2 g 08/06/21 08/16/21 08/15/21 Rx aerosol inhaler (ProAir HFA) nicotine 14 mg/24 hr daily 1 patch TRANSDERMAL DAILY #14 ea 08/06/21 08/16/21 Unknown Rx transdermal patch quetiapine 25 mg tablet (Seroquel) 25 mg PO DAILY #30 tab 08/06/21 08/16/21 08/15/21 Rx umeclidinium 62.5 mcg/actuation 1 inh INHALATION DAILY #30 ea 08/06/21 08/16/21 08/15/21 Rx blister powder for inhalation (Incruse Ellipta) amoxicillin 875 mg-potassium 1 tab PO Q12H 7 Days #14 tab 08/08/21 08/16/21 08/15/21 Rx clavulanate 125 mg tablet cyclobenzaprine 10 mg tablet 10 mg PO Q12H PRN #30 tab 08/08/21 08/16/21 08/15/21 Rx fluticasone propionate 50 2 spray INTRANASAL DAILY PRN 08/12/21 08/16/21 08/15/21 History mcg/actuation nasal spray,suspension isosorbide mononitrate 60 mg 60 mg PO DAILY 08/12/21 08/16/21 08/15/21 History tablet,extended release 24 hr minoxidil 10 mg tablet 10 mg PO BID 08/12/21 08/16/21 08/15/21 History sevelamer carbonate 800 mg tablet See Rx Instructions .ROUTE .COMPLEX 08/12/21 08/16/21 08/15/21 History (Renvela) hydralazine 50 mg tablet 50 mg PO TID 08/16/21 08/16/21 08/15/21 History clonazepam 0.5 mg tablet 0.5 mg PO TID #90 tab 08/24/21 Unknown Rx Allergies Allergy/AdvReac Type Severity Reaction Status Date / Time nifedipine Allergy LIZ-Swell Verified 08/15/21 11:21 Lip/Tongue/Throat PFSH Acute PFSH: Medical History (HFpEF) heart failure with preserved ejection fraction Abdominal ascites Abdominal distention Abnormality of rib determined by X-ray Acute diastolic CHF (congestive heart failure) Anasarca Anemia Anxiety with depression Arteriovenous fistula for hemodialysis in place, secondary Ascites Atherosclerosis of coronary artery Chronic abdominal pain Congestive heart failure COPD (chronic obstructive pulmonary disease) COPD (chronic obstructive pulmonary disease) COVID 05/25 Current smoker Degenerative disc disease, lumbar End-stage renal disease needing dialysis End-stage renal disease on hemodialysis Gross hematuria Hemoptysis Hepatomegaly Hyperkalemia Hypertension Hypertensive emergency Ileus PHT (pulmonary hypertension) Pulmonary embolism 09/21 Inconclusive for very tiny peripheral LEFT lower lobe pulmonary artery sub segmental emboli versus poor opacification. Right heart failure with reduced right ventricular function Smoking addiction Transaminitis Urethral stricture Surgical History H/O hand surgery Amputation right 2&3 fingers 2017 History of adenoidectomy Stented coronary artery Family History Father No problems noted. Other Hypertension Social History Smoking and tobacco status: never smoked Alcohol intake: never Marital status: Number of children: 3 Current occupational status: disabled History of recent travel: No Vitals/I&O/Wt Last Vital Signs Temp 98.0 F 08/25/21 07:45 Pulse 91 08/25/21 10:13 Resp 24 H 04/24/22 10:10 BP 171/111 08/25/21 07:57 Pulse Ox 93 08/25/21 10:10 Weight last 48 hrs Weight 75.9 kg Physical Exam Const: COMMON NORMALS: no acute distress and patient oriented x3 HENMT: COMMON NORMALS: normocephalic HEAD & SCALP: normocephalic Eye: COMMON NORMALS: Equal, round and reactive pupils present and EOMs intact bilaterally Neck/C-Spine: COMMON NORMALS: no JVD Lymph: LYMPHATIC: no lymphadenopathy noted Resp: COMMON NORMALS: normal respiratory effort, No retractions, No use of accessory muscles and clear to auscultation bilaterally AUSCULTATION: crackles and wheezes Cardio: COMMON NORMALS: no JVD, regular rate, regular rhythm, S1 normal heart sound present and S2 normal heart sound present RATE: regular rate RHYTHM: regular rhythm HEART SOUNDS: S1 normal heart sound present and S2 normal heart sound present GI: COMMON NORMALS: Normal to inspection, nondistended, normoactive bowel sounds present, Soft to palpation, non-tender, No hepatosplenomegaly present, no masses and no bruits PALPATION: Yes Soft to palpation and Yes No hepatosplenomegaly present Extremity: COMMON NORMALS: capillary refill normal, no clubbing, cyanosis or edema, no calf tenderness and no pedal edema Neuro: COMMON NORMALS: patient oriented x3 Psych: COMMON NORMALS: mental status grossly normal Data : 08/25/21 07:40 08/25/21 07:40 A&P Assessment and plan (1) Chronic respiratory failure: Status: Acute (2) Acute on chronic respiratory failure with hypoxemia: Status: Acute (3) Hypertensive urgency: Status: Acute Plan Hypertensive urgency -Patient has been given multiple p.o. blood pressure medications, systolics greater than 190, diastolic greater than 140, shortness of breath with pulm edema -Continue home blood pressure medications -Start nitroglycerin drip, moved to ICU -Full code -Heparin for DVT prophylaxis Acute on chronic hypoxic hypercarbic respiratory failure -We will do a trial of BiPAP for fluid overload -Likely diastolic CHF exacerbation with preserved ejection fraction -We will consult nephrology, consider dialysis sooner -No focal pneumonia, Pro-Lonny, CRP, blood cultures -DuoNeb, budesonide -See if his respirations improved with blood pressure improvement End-stage renal disease on dialysis CAD, continue aspirin, Plavix, statin Hypertension continue home medications Attestations Medical Necessity Statement*: Patient requires hospitalization, for hypertensive urgency, pulm edema, shortness of breath, inpatient, greater than 2 midnights Coding Level of Care Code Acute Electrical Installation Inspector for Chg Fwd Diagnoses Chronic respiratory failure J96.10 Acute on chronic respiratory failure with hypoxemia J96.21 Hypertensive urgency I16.0
[2021-08-25 10:58] LABS: Lactic Sepsis W/Reflex 0.8 mmol/L (0.5-2.2)
[2021-08-25 11:09] LABS: Procalcitonin 0.58 ng/mL (0-0.5); Thyroid Stimulating Hormone 2.08 uIU/mL (0.27-4.20)
[2021-08-25] MEDS: labetalol 5 mg/mL SDV 20mL 10 MG IVP (11:09)
[2021-08-25 11:19] LABS: C Reactive Protein 22.3 mg/L (0.0-4.9)
--- NOTE | 2021-08-25 11:51 | PM.CONSULT ---
Providers/Reason For Consult Consulting Physician/Specialty*: Nephrology Reason for Consult*: ESRD mgmt Attending Physician: Tunde Umana MD Primary Care Provider: Mal Peres DO History of Present Illness History of Present Illness Mr. Gibbs presents to the hospital with shortness of breath and weakness. Lungs are coarse, chest x-ray with vascular congestion, currently on BiPAP maintain his oxygen levels. Please see prior consultations in the past for further details. There are no new other issues. Medications/Allergies Home Medications Medication Instructions Recorded Confirmed Last Taken Type pantoprazole 40 mg tablet,delayed 40 mg PO DAILY 02/25/21 08/25/21 08/15/21 History release rifaximin 550 mg tablet (Xifaxan) 550 mg PO BID 06/10/21 08/25/21 08/15/21 History amlodipine 10 mg tablet 10 mg PO DAILY 30 Days #30 tab 07/16/21 08/25/21 08/15/21 Rx aspirin 81 mg tablet,delayed 81 mg PO DAILY #30 tab 07/25/21 08/25/21 08/15/21 Rx release atorvastatin 40 mg tablet 40 mg PO BEDTIME #30 tab 07/25/21 08/25/21 08/15/21 Rx carvedilol 25 mg tablet 25 mg PO BID 30 Days #60 tab 07/25/21 08/25/21 08/15/21 Rx clonidine HCl 0.1 mg tablet 0.1 mg PO BID #60 tab 07/25/21 08/25/21 08/15/21 Rx clopidogrel 75 mg tablet 75 mg PO DAILY #30 tab 07/25/21 08/25/21 08/15/21 Rx nitroglycerin 0.4 mg sublingual 0.4 mg SUBLINGUAL Q5M PRN 30 Days 08/05/21 08/25/21 Unknown Rx tablet #30 tab albuterol sulfate 2.5 mg (3 mL) INHALATION BID #15 ml 08/06/21 08/25/21 08/15/21 Rx albuterol sulfate 90 mcg/actuation 2 puff INHALATION QID PRN #2 g 08/06/21 08/25/21 08/15/21 Rx aerosol inhaler (ProAir HFA) nicotine 14 mg/24 hr daily 1 patch TRANSDERMAL DAILY #14 ea 08/06/21 08/25/21 Unknown Rx transdermal patch quetiapine 25 mg tablet (Seroquel) 25 mg PO DAILY #30 tab 08/06/21 08/25/21 08/15/21 Rx umeclidinium 62.5 mcg/actuation 1 inh INHALATION DAILY #30 ea 08/06/21 08/25/21 08/15/21 Rx blister powder for inhalation (Incruse Ellipta) cyclobenzaprine 10 mg tablet 10 mg PO Q12H PRN #30 tab 08/08/21 08/25/21 08/15/21 Rx fluticasone propionate 50 2 spray INTRANASAL DAILY PRN 08/12/21 08/25/21 08/15/21 History mcg/actuation nasal spray,suspension isosorbide mononitrate 60 mg 60 mg PO DAILY 08/12/21 08/25/21 08/15/21 History tablet,extended release 24 hr sevelamer carbonate 800 mg tablet See Rx Instructions .ROUTE .COMPLEX 08/12/21 08/25/21 08/15/21 History (Renvela) hydralazine 50 mg tablet 50 mg PO TID 08/16/21 08/25/21 08/15/21 History clonazepam 0.5 mg tablet 0.5 mg PO TID #90 tab 08/24/21 08/25/21 Unknown Rx minoxidil 2.5 mg tablet 2.5 mg PO BID 08/25/21 08/25/21 Unknown History Allergies Allergy/AdvReac Type Severity Reaction Status Date / Time nifedipine Allergy ALGY-Swell Verified 08/15/21 11:21 Lip/Tongue/Throat PFSH Acute PFSH: Medical History (HFpEF) heart failure with preserved ejection fraction Abdominal ascites Abdominal distention Abnormality of rib determined by X-ray Acute diastolic CHF (congestive heart failure) Anasarca Anemia Anxiety with depression Arteriovenous fistula for hemodialysis in place, secondary Ascites Atherosclerosis of coronary artery Chronic abdominal pain Congestive heart failure COPD (chronic obstructive pulmonary disease) COPD (chronic obstructive pulmonary disease) COVID 05/25 Current smoker Degenerative disc disease, lumbar End-stage renal disease needing dialysis End-stage renal disease on hemodialysis Gross hematuria Hemoptysis Hepatomegaly Hyperkalemia Hypertension Hypertensive emergency Ileus PHT (pulmonary hypertension) Pulmonary embolism 09/21 Inconclusive for very tiny peripheral LEFT lower lobe pulmonary artery sub segmental emboli versus poor opacification. Right heart failure with reduced right ventricular function Smoking addiction Transaminitis Urethral stricture Surgical History H/O hand surgery Amputation right 2&3 fingers 2017 History of adenoidectomy Stented coronary artery Family History Father No problems noted. Other Hypertension Social History Smoking and tobacco status: never smoked Alcohol intake: never Marital status: Number of children: 3 Current occupational status: disabled History of recent travel: No Vitals/I&O/Wt Last Vital Signs Temp 98.0 F 08/25/21 07:45 Pulse 89 08/25/21 11:03 Resp 22 H 08/25/21 11:03 BP 171/111 08/25/21 07:57 Pulse Ox 95 08/25/21 11:03 Weight last 48 hrs Weight 75.9 kg Physical Exam Narrative: Constitutional: Awake, comfortable HEENT: Wet mucosa, no jvp, non icteric Lungs: Bilaterally wheeze, rales in all lung zones CVS: S1 S2, no murmurs Abdo: Soft, BS ok, ascites Ext 4: 2-3+ edema, peripheral perfusion with no cyanosis Neurological: Grossly non-focal Data : 08/25/21 07:40 08/25/21 07:40 Micro: Microbiology 08/25/21 10:54 Blood Culture - Preliminary Blood SPECIMEN COLLECTED 08/25/21 10:50 Blood Culture - Preliminary Blood SPECIMEN COLLECTED A&P Assessment and plan (1) ESRD on dialysis: 1. ESRD We will dialyze today and continue Thursday, Thursday and Thursday schedule 2K bath, ultrafiltration 3-4 L, it appears he could benefit from the ultrafiltration Dose medication for GFR less than 15 on dialysis 2. Shortness of breath Being treated for COPD and pulm edema, currently on BIPAP now 3. Hemodynamics Blood pressure on the higher side, this is standard for him as well, hopefully ultrafiltration will help, continue home medications without up titration at this time. 4. Chronic ESRD issues To be handled as an outpatient as part of standard monthly management, continue outpatient home medication. Thank you for consultation, as always it is a pleasure to follow patients with you > 20 minutes spent in evaluation management of case with greater than 50% of time in [id number] counseling. Caden Salazar MD Nephrology [phone] Patient seen and examined via telemedicine, with the assistance of the bedside RN Status: Acute Coding Level of Care Code Acute Solar Panel Installation Supervisor for Chg Fwd Diagnoses ESRD on dialysis N18.6; Z99.2
[2021-08-25] MEDS: heparin 5,000 unit/mL INJ 1 mL 5000 UNIT SUBCUT ×2 (13:19→21:37)
[2021-08-25] MEDS: budesonide 0.5 mg/2 mL Neb 0.25 MG INHALATION (13:37)
--- NOTE | 2021-08-25 13:51 | PC.NURSE ---
recieved from er awake and alert very short of breath sitting tripod to breath abdomen large and distended.. on bipap to assist breathing
[2021-08-25] MEDS: hyDRALAzine 50 mg Tablet PO ×2 (14:18→20:38)
[2021-08-25] MEDS: CLONazepam 0.5 mg Tablet PO ×2 (14:18→20:38)
[2021-08-25 14:36] LABS: Troponin 5 6HR 77.75 ng/L (0-15)
[2021-08-25 14:38] LABS: Troponin 5 6HR Delta -7.25 ng/L (0-12)
[2021-08-25] MEDS: atorvastatin 40 mg Tablet PO (20:38)
[2021-08-26] VITALS (58 sets, daily range): BP systolic 112–184; BP diastolic 50–112; PULSE 70–102; RESP 13–23; TEMP 36.7–37.2; O2SAT 91–100
[2021-08-26 03:50] LABS: ABG PCO2 41.4 mmHg (35-45); ABG PH Result 7.44 (7.35-7.45); Arterial Blood Gas Hematocrit 27.2 % (42-52); Base Excess ABG 3.6 mmol/L (-2.0-2.0); Blood Gas Allen Test Pos; Blood Gas Sample Site Radial, right; Blood Gas Sample Type Arterial; HCO3 ABG 28.1 mmol/L (22-26); Oxygen Device BIPAP; PO2 ABG 64.5 mmHg (80.0-100.0)
[2021-08-26 05:05] LABS: Basophils % 0.7 %; Eosinophils # 0.2 10^3/uL (0.0-0.8); Eosinophils % 5.3 %; Hematocrit 24.9 % (42.0-52.0); Lymphocytes # 0.7 10^3/uL (0.8-4.8); Mean Corpuscular HGB Conc 32.1 g/dL (30.0-36.0); Mean Corpuscular Hemoglobin 29.7 pg (28.0-34.0); Mean Corpuscular Volume 92.6 fl (80-94); Monocytes # 0.6 10^3/uL (0.2-0.9); Monocytes % 12.9 %; Neutrophils # 2.86 10^3/uL (1.8-7.7); Neutrophils % 65.9 %; Nucleated Red Blood Cells % 0 %; Platelet Count 161 10^3/cmm (130-400); Red Blood Count 2.69 10^6/uL (4.1-5.3); Red Cell Distribution Width 18.6 % (12.1-15.1); White Blood Count 4.3 10^3/uL (4.0-10.0)
[2021-08-26 05:27] LABS: Alanine Aminotransferase 8 U/L (0-41); Albumin Level 3.4 g/dL (3.5-5.2); Alkaline Phosphatase 130 IU/L (40-130); Anion Gap 17.3 (5-19); Aspartate Amino Transferase 11 U/L (0-40); Blood Urea Nitrogen 41 mg/dL (6-20); Carbon Dioxide 26 mmol/L (22-29); Chloride 98 mmol/L (98-107); Globulin 3.3 g/dL (1.3-4.6); Glomerular Filtration Rate 12.8 mL/min (90-130); Glucose 72 mg/dL (65-115); Osmolality Calculated 293 mOsm/kg (285-295); Phosphorus 6.1 mg/dL (2.5-4.5); Potassium 4.3 mmol/L (3.5-5.1); Sodium 137 mmol/L (136-145); Total Protein 6.7 g/dL (6.6-8.7)
[2021-08-26 05:49] LABS: NT Pro B Type Natriuretic Pept 48826 pg/mL (0-125)
--- NOTE | 2021-08-26 07:00 | XR_ITS ---
WS: [id number] Portable AP supine chest, 08/26/2021 Clinical Data: sob Comparison: Portable chest, 08/25/2021 Findings: There is increased interstitial opacity throughout both lungs which may represent pulmonary edema. The heart is slightly enlarged. No pneumothorax is present. Monitor leads are on the chest wa ll. XR/XR chest 1V portable [id number] Impression: No change in possible pulmonary edema and cardiomegaly.
[2021-08-26] MEDS: nicotine 14 mg Patch 1 PATCH TRANSDERMA (07:50)
[2021-08-26] MEDS: isosorbide mononitrate ER 60 mg Tablet PO (07:51)
[2021-08-26] MEDS: sevelamer 800 mg Tablet 3200 MG PO ×3 (07:51→17:15)
[2021-08-26] MEDS: quetiapine 25 mg Tablet PO (07:52)
[2021-08-26] MEDS: cloNIDine 0.1 mg Tablet PO ×2 (07:52→20:27)
[2021-08-26] MEDS: pantoprazole DR 40 mg Tablet PO (07:52)
[2021-08-26] MEDS: amlodipine 10 mg Tablet PO (07:52)
[2021-08-26] MEDS: minoxidil 10 mg Tablet PO ×2 (07:52→17:15)
[2021-08-26] MEDS: carvedilol 25 mg Tablet PO ×2 (07:52→20:27)
[2021-08-26] MEDS: clopidogrel 75 mg Tablet PO (07:53)
[2021-08-26] MEDS: aspirin 81 mg EC Tablet PO (07:53)
[2021-08-26] MEDS: hyDRALAzine 50 mg Tablet PO ×3 (07:53→20:28)
[2021-08-26] MEDS: CLONazepam 0.5 mg Tablet PO ×4 (07:53→20:27)
[2021-08-26] MEDS: budesonide 0.5 mg/2 mL Neb 0.25 MG INHALATION (07:58)
--- NOTE | 2021-08-26 09:32 | PC.CHAP ---
Pastoral Care Encounter/Spiritual Assessment Type of Contact [] Declined financial aid coordinator visit [] Patient/Family/Request visit [] Outpatient visit [] Follow-up visit [] Physician referral [] Code/Alert [x] Routine visit [] Staff referral [] Actively dying [] Patient sleeping [] Family support [] [] Out of room [] Palliative care [] [x] Receiving care in room [] Pre-surgical visit [] Trauma [] Long length of stay [x] ICU visit [x] Other: setter... dialysis Relational/Emotional Strength [] Patient feels connected with others/family/visitors/staff [] Distress [] Loneliness/isolation [] Abandonment Spirituality of Patient [] Person of Ct [] Attends Restoration of their Ct [] Believes in Prayer [] Reads Bible or Taoism materials [] There are Spiritual issues to be addressed [employer] And Material Cutter Interventions [x] Prayer [] Active listening [] Non-anxious presence [] Spiritual/emotional support [] Crisis/trauma care [] Spiritual counseling [] Bereavement support [] Provided bereavement packet [] Provided Bible/devotional materials [] Provided toy/stuffed animal, coloring book to patient or family member [] Provided Communion [] Anointing/[place] [] Salvation [x] Completed spiritual assessment [] Other: Impact on Illness or Injury [] Angry [] Fearful [] Anxious [] Often cries [] Exhaustion [] Unable to work [] Unable to attend jainism [] Unable to walk/stand [] Unable to read [] Unable to drive [] Unable to eat/drink [] Unable to sleep [] Unable to be with family [] Patient intubated [] Other: Summary Time spent with patient
--- NOTE | 2021-08-26 10:12 | PM.PN ---
Subjective Subjective: Sharath is seen and examined on dialysis today. Tolerating the therapy well. Awake, conversant, breathing comfortably on 4 L nasal cannula oxygen. Hemodynamics reviewed, remained stable. Lab work reviewed, also remained stable. Vitals/I&O/Wt Last Vital Signs Temp 98.1 F 08/26/21 09:00 Pulse 87 08/26/21 09:00 Resp 16 08/26/21 09:00 BP 151/84 08/26/21 09:00 Pulse Ox 94 08/26/21 09:00 08/25/21 08/26/21 08/26/21 22:59 06:59 14:59 Intake Total 300 / 300 360 / 360 Output Total 4300 / 4300 0 / 4300 Balance -4000 / -4000 0 / -4000 360 / 360 Weight last 48 hrs Weight 78.5 kg Weight 75.9 kg Weight 75.9 kg Physical Exam Narrative: Constitutional: Awake, comfortable HEENT: Wet mucosa, no jvp, non icteric Lungs: Bilaterally wheeze, rales in all lung zones CVS: S1 S2, no murmurs Abdo: Soft, BS ok, ascites Ext 4: 2-3+ edema, peripheral perfusion with no cyanosis Neurological: Grossly non-focal Data : 08/26/21 04:24 08/26/21 04:24 Micro: Microbiology 08/25/21 10:54 Blood Culture - Preliminary Blood SPECIMEN COLLECTED 08/25/21 10:50 Blood Culture - Preliminary Blood SPECIMEN COLLECTED A&P Assessment and plan (1) ESRD on dialysis: 1. ESRD Seen on dialysis today and continue Thursday, Thursday and Thursday schedule 2K bath, ultrafiltration 3-4 L, it appears he could benefit from the ultrafiltration Dose medication for GFR less than 15 on dialysis 2. Shortness of breath Being treated for COPD and pulm edema, currently on nasal juliano O2 3. Hemodynamics Blood pressure coming down with effective UF. 4. Chronic ESRD issues To be handled as an outpatient as part of standard monthly management, continue outpatient home medication. - ok for DC after dialysis from my own perspective Thank you for consultation, as always it is a pleasure to follow patients with you > 20 minutes spent in evaluation management of case with greater than 50% of time in [id number] counseling. Caden Salazar MD Nephrology [phone] Patient seen and examined via telemedicine, with the assistance of the bedside RN Status: Acute Attestations Medical Necessity Statement*: ESRD mgmt Coding Level of Care Code Acute Small Stock Facer for g Fwd Diagnoses ESRD on dialysis N18.6; Z99.2
[2021-08-26] MEDS: heparin 5,000 unit/mL INJ 1 mL 5000 UNIT SUBCUT ×2 (10:44→20:33)
--- NOTE | 2021-08-26 18:19 | PC.NURSE ---
Report given to Fab RN. Pt transferred to room 255-2 without issues
[2021-08-26] MEDS: ipratropium-albuterol 3 mL Neb INHALATION (19:30)
[2021-08-26] MEDS: atorvastatin 40 mg Tablet PO (20:27)
--- NOTE | 2021-08-26 20:31 | PM.PN ---
Subjective Subjective: Today still feels like he is having dyspnea, although saturation 95% on 4 L nasal cannula oxygen. Request to be put on BiPAP. Later on in the day having anxiety attack. Required extra dose of clonazepam. Vitals/I&O/Wt Last Vital Signs Temp 98.6 F 08/26/21 19:42 Pulse 82 08/26/21 19:42 Resp 18 08/26/21 19:42 BP 120/60 08/26/21 20:27 Pulse Ox 96 08/26/21 19:42 08/26/21 08/26/21 08/26/21 06:59 14:59 22:59 Intake Total 900 / 900 360 / 1260 Output Total 0 / 4300 8300 / 8300 Balance 0 / -4000 -7400 / -7400 360 / -7040 Weight last 48 hrs Weight 74.5 kg Weight 78.5 kg Weight 75.9 kg Weight 75.9 kg Physical Exam Narrative: Undergoing dialysis Const: COMMON NORMALS: alert GENERAL APPEARANCE: cooperative ORIENTATION/CONSCIOUSNESS: Yes awake HENMT: COMMON NORMALS: normocephalic, EAC's normal, Normal external nose present and moist oral mucous membranes HEAD & SCALP: normocephalic NOSE: Normal external nose present EXTERNAL AUDITORY CANAL: EAC's normal Neck/C-Spine: COMMON NORMALS: no meningeal signs Chest: CHEST: Yes Symmetrical chest wall rise Resp: COMMON NORMALS: clear to auscultation bilaterally AUSCULTATION: clear to auscultation bilaterally Cardio: COMMON NORMALS: regular rate, regular rhythm and No murmurs present (Cardio) RATE: regular rate RHYTHM: regular rhythm GI: COMMON NORMALS: Normal to inspection, nondistended, normoactive bowel sounds present, Soft to palpation and non-tender PALPATION: Yes Soft to palpation Extremity: COMMON NORMALS: no pedal edema Neuro: COMMON NORMALS: moves all extremities SENSORIUM/ORIENTATION: Yes alert MENINGEAL SIGNS: Yes no meningeal signs Psych: COMMON NORMALS: mental status grossly normal Skin: COMMON NORMALS: no wounds RASHES: no rashes Data : 08/26/21 04:24 08/26/21 04:24 Micro: Microbiology 08/25/21 10:54 Blood Culture - Preliminary Blood NEGATIVE TO DATE 08/25/21 10:50 Blood Culture - Preliminary Blood NEGATIVE TO DATE A&P Assessment and plan (1) Hypertensive urgency: Blood pressures improved. Better still with dialysis. Continue to monitor blood pressures. Continue antihypertensive regimen. In case blood pressures remain controlled, no further worsening of respiratory function, may consider possible discharge tomorrow. Status: Acute (2) Acute on chronic respiratory failure with hypoxemia: Continue oxygen support. BiPAP support as needed. Clonazepam for air hunger/anxiety. Suspected diastolic congestive heart failure, continue hemodialysis. However, discussed with him also consideration of additional including pulmonary causes. Does appear to have some persistence of groundglass opacities, and would benefit from pulmonary function test once out of acute episode. Additionally states that he is awaiting to be scheduled for a sleep study. In addition to hemodialysis, continue optimization of blood pressure control. Status: Acute (3) Chronic respiratory failure: Diastolic CHF with ESRD, anuria, dialysis dependence, as well as poorly controlled hypertension. Recurrent episodes of diastolic heart failure exacerbation. Worsened also by recurrent episodes of anxiety, air hunger. Consider additional evaluation with PFT, sleep study. Persistent small pericardial effusion, nonhemodynamically significant on repeat limited echo recent admission. Status: Acute Plan End-stage renal disease on dialysis CAD, continue aspirin, Plavix, statin Hypertension continue home medications Attestations Medical Necessity Statement*: Continue admission for assessment management of acute on chronic hypoxic respiratory failure, diastolic congestive heart failure exacerbation, in the setting of ESRD and anuria. Coding Level of Care Code Acute Lithograph Press Feeder for Cristi Diane Diagnoses Chronic respiratory failure J96.10 Acute on chronic respiratory failure with hypoxemia J96.21 Hypertensive urgency I16.0
[2021-08-27] VITALS (10 sets, daily range): BP systolic 130–157; BP diastolic 65–81; PULSE 78–88; RESP 18–22; TEMP 36.4–37; O2SAT 92–97
[2021-08-27 05:14] LABS: Basophils # 0.1 10^3/uL (0.0-0.1); Eosinophils # 0.2 10^3/uL (0.0-0.8); Eosinophils % 4.6 %; Hematocrit 25.9 % (42.0-52.0); Hemoglobin 8.2 g/dL (11.7-16.6); Lymphocytes # 0.8 10^3/uL (0.8-4.8); Lymphocytes % 15.6 %; Mean Corpuscular HGB Conc 31.7 g/dL (30.0-36.0); Mean Corpuscular Hemoglobin 29.6 pg (28.0-34.0); Mean Corpuscular Volume 93.5 fl (80-94); Monocytes # 0.6 10^3/uL (0.2-0.9); Monocytes % 11.6 %; Neutrophils # 3.48 10^3/uL (1.8-7.7); Nucleated Red Blood Cells % 0 %; Platelet Count 180 10^3/cmm (130-400); Red Blood Count 2.77 10^6/uL (4.1-5.3); Red Cell Distribution Width 17.8 % (12.1-15.1); White Blood Count 5.2 10^3/uL (4.0-10.0)
[2021-08-27 05:48] LABS: Alanine Aminotransferase 8 U/L (0-41); Albumin Level 3.3 g/dL (3.5-5.2); Alkaline Phosphatase 135 IU/L (40-130); Anion Gap 17.5 (5-19); Aspartate Amino Transferase 11 U/L (0-40); Blood Urea Nitrogen 37 mg/dL (6-20); Calcium 8.9 mg/dL (8.5-10.5); Carbon Dioxide 27 mmol/L (22-29); Chloride 98 mmol/L (98-107); Globulin 3.6 g/dL (1.3-4.6); Glomerular Filtration Rate 12.8 mL/min (90-130); Glucose 109 mg/dL (65-115); Magnesium 2.1 mg/dL (1.7-2.3); Osmolality Calculated 295 mOsm/kg (285-295); Phosphorus 5.9 mg/dL (2.5-4.5); Potassium 4.5 mmol/L (3.5-5.1); Sodium 138 mmol/L (136-145); Total Bilirubin 0.7 mg/dL (0.15-1.2); Total Protein 6.9 g/dL (6.6-8.7)
[2021-08-27] MEDS: quetiapine 25 mg Tablet PO (08:05)
[2021-08-27] MEDS: nicotine 14 mg Patch 1 PATCH TRANSDERMA (08:05)
[2021-08-27] MEDS: cloNIDine 0.1 mg Tablet PO (08:05)
[2021-08-27] MEDS: hyDRALAzine 50 mg Tablet PO (08:05)
[2021-08-27] MEDS: isosorbide mononitrate ER 60 mg Tablet PO (08:05)
[2021-08-27] MEDS: carvedilol 25 mg Tablet PO (08:06)
[2021-08-27] MEDS: aspirin 81 mg EC Tablet PO (08:06)
[2021-08-27] MEDS: pantoprazole DR 40 mg Tablet PO (08:06)
[2021-08-27] MEDS: amlodipine 10 mg Tablet PO (08:06)
[2021-08-27] MEDS: clopidogrel 75 mg Tablet PO (08:06)
[2021-08-27] MEDS: CLONazepam 0.5 mg Tablet PO (08:06)
[2021-08-27] MEDS: budesonide 0.5 mg/2 mL Neb 0.25 MG INHALATION (08:09)
[2021-08-27] MEDS: sevelamer 800 mg Tablet 3200 MG PO (08:10)
[2021-08-27] MEDS: acetaminophen 325 mg Tablet 650 MG PO (08:10)
[2021-08-27] MEDS: minoxidil 10 mg Tablet PO (08:34)
[2021-08-27] MEDS: heparin 5,000 unit/mL INJ 1 mL 5000 UNIT SUBCUT (10:36)
--- NOTE | 2021-08-27 11:29 | P.PN_ITS ---
Subjective Subjective: Mr Gibbs remains comfortable today with no acute issues. Breathing comfortably on room air. Was on BiPAP overnight. Dialysis went well yesterday with no complications. No uremic symptoms. Keen to go home. Vitals/I&O/Wt Last Vital Signs Temp 97.6 F 08/27/21 07:34 Pulse 82 08/27/21 10:56 Resp 22 H 08/27/21 07:34 BP 137/73 08/27/21 08:05 Pulse Ox 96 08/27/21 10:56 08/26/21 08/27/21 08/27/21 22:59 06:59 14:59 Intake Total 600 / 1500 200 / 1700 840 / 840 Balance 600 / -6800 200 / -6600 840 / 840 Weight last 48 hrs Weight 74.5 kg Weight 78.5 kg Weight 75.9 kg Physical Exam Narrative: Constitutional: Awake, comfortable HEENT: Wet mucosa, no jvp, non icteric Lungs: Bilaterally wheeze, rales in all lung zones CVS: S1 S2, no murmurs Abdo: Soft, BS ok, ascites Ext 4: 2-3+ edema, peripheral perfusion with no cyanosis Neurological: Grossly non-focal Data : 08/27/21 04:20 08/27/21 04:20 Micro: Microbiology 08/25/21 10:54 Blood Culture - Preliminary Blood NEGATIVE TO DATE 08/25/21 10:50 Blood Culture - Preliminary Blood NEGATIVE TO DATE A&P Assessment and plan (1) ESRD on dialysis: 1. ESRD Will dialyze tomorrow if he is still here 2K bath, ultrafiltration 3-4 L, it appears he could benefit from the ultrafiltration Dose medication for GFR less than 15 on dialysis 2. Shortness of breath Being treated for COPD and pulm edema, currently on room air and appears comfortable 3. Hemodynamics Blood pressure coming down with effective UF. 4. Chronic ESRD issues To be handled as an outpatient as part of standard monthly management, continue outpatient home medication. - ok for DC from my perspective Thank you for consultation, as always it is a pleasure to follow patients with you > 20 minutes spent in evaluation management of case with greater than 50% of time in [id number] counseling. Caden Salazar MD Nephrology [phone] Patient seen and examined via telemedicine, with the assistance of the bedside RN Status: Acute Attestations Medical Necessity Statement*: eval for ESRD Coding Level of Care Code Acute Outside Property Agent for [facility] Fwd Diagnoses ESRD on dialysis N18.6; Z99.2
[2021-08-27] MEDS: sevelamer 800 mg Tablet PO (12:00)
--- NOTE | 2021-08-27 12:58 | P.DS_ITS ---
Discharge Providers Date of Admission: 08/25/21 10:36 Date of Discharge: August 27, 2021 Attending Provider at Admission: Tunde Umana MD Attending Provider at Discharge: Bob Gonzalez Primary Care Provider: Mal Peres DO Diagnoses at Discharge Discharge Diagnosis (1) ESRD on dialysis: Status: Acute Reason for Visit Reason for Visit: SOB, chest pain, anxiety Hospital Course Hospital Course 40-year-old gentleman return to the hospital after recent discharge due to shortness of breath, with hypertensive urgency, systolic blood pressure in 190s, diastolic reported as high as 140s, he received labetalol push 10 mg, as well as oral medications including amlodipine, carvedilol, clonidine, hydralazine, Ativan, was initially started on nitroglycerin drip with admission to ICU, wean down. Chest x-ray with diffusely increased interstitial markings with some worsening and interval, suggestive of congestive heart failure versus atypical. Received transient BiPAP support. Received hemodialysis with improvement in oxygen requirement down from 6 L when weaned off BiPAP to currently 4 L nasal cannula. Required continued benzodiazepines due to anxiety, received a few extra doses. Noted to be reaching his fluid restriction limit very easily, and requesting for more fluids, drinking soda. High concern that he may be going over his fluid restriction at home. Additionally with persisting groundglass changes on images, discussed with him that these certainly may be secondary to his diastolic congestive heart failure and fluid overload with dependence on hemodialysis, however, we are also referring him for pulmonary function testing to exclude also underlying pulmonary etiology. He states he also is awaiting arrangements for sleep study later this month. He is encouraged to follow through with this. He is asked to follow-up in addition to nephrology and dialysis also with cardiology with regards to diastolic congestive heart failure, frequent fluid overload, persistent small pericardial effusion, and consideration of other etiologies that may be contributing to recurrent ascites in the absence of liver cirrhosis. Physical Exam Const: COMMON NORMALS: alert GENERAL APPEARANCE: cooperative and comfortable ORIENTATION/CONSCIOUSNESS: Yes awake HENMT: COMMON NORMALS: normocephalic, EAC's normal, Normal external nose present and moist oral mucous membranes HEAD & SCALP: normocephalic NOSE: Normal external nose present EXTERNAL AUDITORY CANAL: EAC's normal Neck/C-Spine: COMMON NORMALS: no meningeal signs Chest: CHEST: Yes Symmetrical chest wall rise Resp: COMMON NORMALS: clear to auscultation bilaterally AUSCULTATION: clear to auscultation bilaterally Cardio: COMMON NORMALS: regular rate, regular rhythm and No murmurs present (Cardio) RATE: regular rate RHYTHM: regular rhythm GI: COMMON NORMALS: Soft to palpation and non-tender PALPATION: Yes Soft to palpation OTHER: Chronically enlarged Extremity: COMMON NORMALS: no pedal edema Neuro: COMMON NORMALS: moves all extremities SENSORIUM/ORIENTATION: Yes alert MENINGEAL SIGNS: Yes no meningeal signs Psych: COMMON NORMALS: mental status grossly normal Skin: COMMON NORMALS: no wounds RASHES: no rashes Discharge Data Studies Completed and Pending Completed Studies During Hospitalization Category Date Time Status XR chest 1V portable [id number] Routine Exams 08/26/21 07:00 Completed XR chest 1V portable [id number] Urgent Exams 08/25/21 07:28 Completed Pending at discharge Category Date Time Status Blood Culture Stat Lab 08/25/21 10:54 Results Complete Blood Count w/Auto AM LABS Lab 08/28/21 04:00 Ordered Comprehensive Metabolic Panel AM LABS Lab 08/28/21 04:00 Ordered Magnesium AM LABS Lab 08/28/21 04:00 Ordered NT Pro B Type Natriuretic Pept QAM Lab 08/28/21 06:00 Ordered Phosphorus AM LABS Lab 08/28/21 04:00 Ordered Radiology Impressions Chest X-Ray 08/26/21 07:00 Impression: No change in possible pulmonary edema and cardiomegaly. Laboratory Results WBC 5.2 10^3/uL (4.0-10.0) 08/27/21 04:20 RBC 2.77 10^6/uL (4.1-5.3) L 08/27/21 04:20 Hgb 8.2 g/dL (11.7-16.6) L 08/27/21 04:20 Hct 25.9 % (42.0-52.0) L 08/27/21 04:20 MCV 93.5 fl (80-94) 08/27/21 04:20 MCH 29.6 pg (28.0-34.0) 08/27/21 04:20 MCHC 31.7 g/dL (30.0-36.0) 08/27/21 04:20 RDW 17.8 % (12.1-15.1) H 08/27/21 04:20 Plt Count 180 10^3/cmm (130-400) 08/27/21 04:20 MPV 10.0 fL (7.4-10.4) 08/27/21 04:20 Neut % (Auto) 67.0 % 08/27/21 04:20 Lymph % (Auto) 15.6 % 08/27/21 04:20 [place] % (Auto) 11.6 % 08/27/21 04:20 Eos % (Auto) 4.6 % 08/27/21 04:20 Baso % (Auto) 1.0 % 08/27/21 04:20 Neut # (Auto) 3.48 10^3/uL (1.8-7.7) 08/27/21 04:20 Lymph # (Auto) 0.8 10^3/uL (0.8-4.8) 08/27/21 04:20 [place] # (Auto) 0.6 10^3/uL (0.2-0.9) 08/27/21 04:20 Eos # (Auto) 0.2 10^3/uL (0.0-0.8) 08/27/21 04:20 Baso # (Auto) 0.1 10^3/uL (0.0-0.1) 08/27/21 04:20 Nucleated RBC % (auto) 0 % 08/27/21 04:20 Nucleated RBCs # 0.0 /100WBC 08/27/21 04:20 Specimen Type Arterial 08/26/21 04:00 Sample Site Radial, right 08/26/21 04:00 ABG pH 7.44 (7.35-7.45) 08/26/21 04:00 ABG pCO2 41.4 mmHg (35-45) 08/26/21 04:00 ABG pO2 64.5 mmHg (80.0-100.0) L 08/26/21 04:00 ABG HCO3 28.1 mmol/L (22-26) H 08/26/21 04:00 ABG O2 Saturation 94.7 08/25/21 07:41 ABG Base Excess 3.6 mmol/L (-2.0-2.0) H 08/26/21 04:00 Alexei Test Pos 08/26/21 04:00 A-a O2 Gradient 18.0 mmHg (5-10) H 08/25/21 07:41 Hematocrit 27.2 % (42-52) L 08/26/21 04:00 Hgb O2 Saturation 91.3 % (95-100) L 08/25/21 07:41 Carboxyhemoglobin 2.5 %THgb (0.4-20.1) 08/25/21 07:41 Methemoglobin 1.1 % (0.4-1.5) 08/25/21 07:41 Total Hemoglobin 7.7 g/dL (14-18) L 08/25/21 07:41 Sodium 138.0 mmol/L (131-143) 08/25/21 07:41 Potassium 4.8 mmol/L (3.5-5.0) 08/25/21 07:41 Glucose 86.0 mg/dL (70-115) 08/25/21 07:41 Ionized Calcium 1.2 mmol/L (1.1-1.4) 08/25/21 07:41 O2 Delivery Device Bipap 08/26/21 04:00 O2 Liters/Min 4.0 % 08/25/21 07:41 FiO2 30.0 % 08/26/21 04:00 Wetlands Technician ID [email or web address] 08/26/21 04:00 Sodium 138 mmol/L (136-145) 08/27/21 04:20 Potassium 4.5 mmol/L (3.5-5.1) 08/27/21 04:20 Chloride 98 mmol/L (98-107) 08/27/21 04:20 Carbon Dioxide 27 mmol/L (22-29) 08/27/21 04:20 Anion Gap 17.5 (5-19) 08/27/21 04:20 BUN 37 mg/dL (6-20) H 08/27/21 04:20 Creatinine 5.1 mg/dL (0.7-1.2) H 08/27/21 04:20 GFR Calculation 12.8 mL/min (90-130) L 08/27/21 04:20 Glucose 109 mg/dL (65-115) 08/27/21 04:20 Calculated Osmolality 295 mOsm/kg (285-295) 08/27/21 04:20 Lactic Acid 0.8 mmol/L (0.5-2.2) 08/25/21 07:40 Calcium 8.9 mg/dL (8.5-10.5) 08/27/21 04:20 Phosphorus 5.9 mg/dL (2.5-4.5) H 08/27/21 04:20 Magnesium 2.1 mg/dL (1.7-2.3) 08/27/21 04:20 Total Bilirubin 0.7 mg/dL (0.15-1.2) 08/27/21 04:20 AST 11 U/L (0-40) 08/27/21 04:20 ALT 8 U/L (0-41) 08/27/21 04:20 Alkaline Phosphatase 135 IU/L (40-130) H 08/27/21 04:20 Troponin T Baseline 85 ng/L (0-15) H 08/25/21 07:40 Troponin T 120 Minute 77.03 ng/L (0-15) H 08/25/21 09:42 Delta Troponin T -7.97 ABS# (0-10) L 08/25/21 09:42 Troponin T Hi Sens 6Hr 77.75 ng/L (0-15) H 08/25/21 13:50 Troponin T Hi Sens 6Hr Delta -7.25 ng/L (0-12) L 08/25/21 13:50 C-Reactive Protein 22.3 mg/L (0.0-4.9) H 08/25/21 07:40 NT-Pro-B Natriuret Pep 16636 pg/mL (0-125) H 08/27/21 04:20 Total Protein 6.9 g/dL (6.6-8.7) 08/27/21 04:20 Albumin 3.3 g/dL (3.5-5.2) L 08/27/21 04:20 Globulin 3.6 g/dL (1.3-4.6) 08/27/21 04:20 Procalcitonin 0.58 ng/mL (0-0.5) H 08/25/21 07:40 TSH 2.08 uIU/mL (0.27-4.20) 08/25/21 07:40 Vitals Last Vital Signs Temp 97.5 F L 08/27/21 12:00 Pulse 80 08/27/21 12:00 Resp 18 08/27/21 12:00 BP 130/65 08/27/21 12:00 Pulse Ox 93 08/27/21 12:00 Discharge Plan Discharge Patient Disposition: Home Condition: Stable Prescriptions: New minoxidil 10 mg Tablet 10 mg PO BID Qty: 180 0RF nicotine (polacrilex) 4 mg lozenge 4 mg buccal Q1H PRN (Reason: nicotine cravings) Qty: 81 2RF Rx Instructions: do not exceed more than 20 mar per day Continued Incruse Ellipta 62.5 mcg/actuation blister with device 1 inh INHALATION DAILY Qty: 30 2RF quetiapine [Seroquel] 25 mg tablet 25 mg PO DAILY Qty: 30 1RF albuterol sulfate 2.5 mg /3 mL (0.083 %) solution for nebulization 2.5 mg inhalation BID Qty: 15 2RF albuterol sulfate [ProAir HFA] 90 mcg/actuation HFA aerosol inhaler 2 puff INHALATION QID PRN (Reason: Shortness Of Breath) Qty: 2 4RF cyclobenzaprine 10 mg tablet 10 mg PO Q12H PRN (Reason: muscle spasm) Qty: 30 0RF amlodipine 10 mg tablet 10 mg PO DAILY 30 Days Qty: 30 0RF pantoprazole 40 mg tablet,delayed release (DR/EC) 40 mg PO DAILY 0RF Xifaxan 550 mg tablet 550 mg PO BID 0RF aspirin 81 mg Tablet,Delayed Release (Dr/Ec) 81 mg PO DAILY Qty: 30 0RF atorvastatin 40 mg Tablet 40 mg PO BEDTIME Qty: 30 0RF clonidine HCl 0.1 mg Tablet 0.1 mg PO BID Qty: 60 0RF clopidogrel 75 mg Tablet 75 mg PO DAILY Qty: 30 0RF carvedilol 25 mg tablet 25 mg PO BID 30 Days Qty: 60 0RF isosorbide mononitrate 60 mg tablet extended release 24 hr 60 mg PO DAILY 0RF fluticasone propionate 50 mcg/actuation spray,suspension 2 spray INTRANASAL DAILY PRN (Reason: Allergy Symptoms) 0RF sevelamer carbonate [Renvela] 800 mg tablet See Rx Instructions .ROUTE .COMPLEX 0RF Rx Instructions: 4 tabs po tid with meals and one tab bid with snacks nicotine 14 mg/24 hr patch 24 hour 1 patch transdermal DAILY Qty: 14 2RF nitroglycerin 0.4 mg tablet, sublingual 0.4 mg sublingual Q5M PRN (Reason: chest pain) 30 Days Qty: 30 0RF Rx Instructions: do not exceed 3 doses per episode hydralazine 50 mg Tablet 50 mg PO TID 0RF clonazepam 0.5 mg tablet 0.5 mg PO TID Qty: 90 0RF Discontinued minoxidil 2.5 mg tablet 2.5 mg PO BID 0RF Discharge Orders: Discharge Order (Routine); Ordered 08/27/21 Ordered By: Bob Gonzalez Other Ambulatory Orders: Pulmonary Function Screen with Bronchodilator (Routine) Timeframe: 2 Days Facility: [facility] - Location: Respiratory Therapy Ordered By: Bob Gonzalez Referrals: Mal Peres DO [Primary Care Provider] - 09/02/21 8:45 am Rosalia Dia MD [Physician] - 09/05/21 1:45 pm Patient Instructions: Nicotine (Into the mouth), Minoxidil (By mouth), Dialysis Diet (GEN), Fluid Restriction (GEN) Activity Restrictions/Additional Instructions: Please restrict fluid intake to 1500mL per day. Continue renal, hemodialysis diet. Monitor blood pressure 3 times a day, if blood pressures are rising above 150/90, take an extra dose of hydralazine 50 mg. Contact your primary doctor. In case blood pressures continue to rise despite taking her medications and extra dose of hydralazine, increasing above 190/100, seek medical attention. Continue hemodialysis and follow-up with nephrology. Please follow-up with cardiology in office regarding diastolic congestive heart failure, persistent small pericardial effusion, high blood pressure. Please quit smoking. Please follow-up with pulmonary function testing continue arrangements for sleep study. Follow-up with your primary doctor. In case of abnormal results discussed referral to pulmonology. Discharge Attestations Time Spent in Discharge Care*: greater than 30 min Status at Discharge: Cognitive status at discharge: cognitively intact , Behavioral status at discharge: cooperative , Quality Metrics Clinical Quality Measures [ No reported AMI, CVA or VTE this stay] Coding Level of Care Code Acute g FW DC note Diagnoses ESRD on dialysis N18.6; Z99.2
== END 2021-08-27 14:00 | disposition home or self-care (01) | DRG 291 ==
LOC: ER 07:33 → ICU 10:47 → MEDSURG 08-26 18:08
PROVIDERS: Admitting Provider Family Medicine; Emergency Provider Physician Assistant; PCP Family Medicine; Visit Provider Internal Medicine
DX: I13.2 Hypertensive heart and chronic kidney disease with heart failure and with stage 5 chronic kidney disease, or end stage renal disease (principal); N18.6 End stage renal disease; I50.33 Acute on chronic diastolic (congestive) heart failure; J96.22 Acute and chronic respiratory failure with hypercapnia; J96.21 Acute and chronic respiratory failure with hypoxia; I16.0 Hypertensive urgency; Z99.2 Dependence on renal dialysis; Z86.16 Personal history of COVID-19; F17.210 Nicotine dependence, cigarettes, uncomplicated; J44.9 Chronic obstructive pulmonary disease, unspecified; F41.1 Generalized anxiety disorder; F41.0 Panic disorder [episodic paroxysmal anxiety]; I25.10 Atherosclerotic heart disease of native coronary artery without angina pectoris; Z95.5 Presence of coronary angioplasty implant and graft; Z79.02 Long term (current) use of antithrombotics/antiplatelets; Z79.82 Long term (current) use of aspirin; Z79.51 Long term (current) use of inhaled steroids
CPT/HCPCS: 36415; 36600; 71045; 76705; 80048; 80051; 80053; 82330; 82803; 82805; 83605; 83690; 83735; 83880; 84100; 84145; 84443; 84484; 85025; 85610; 85730; 86140; 87040; 90935; 93005; 94640; 94660; 94762; 96365; 96366; 96372; 96374; 96375; 96376; 99283; 99284; 99291; G0378; J0360; J1644; J2060; J3490; J7611; J7626; Q3014

== ENCOUNTER 2021-08-30 23:18 | Emergency (ER) | payer MEDICARE, MEDICAID, SELFPAY ==
[2021-08-30 23:33] VITALS: BP 178/95; PULSE 92; RESP 24; TEMP 37.2; O2SAT 92; BMI 21.7
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
--- NOTE | 2021-08-31 00:52 | XRR_ITS ---
PROCEDURE INFORMATION: Exam: XR Left Knee Exam date and time: 08/31/2021 1:01 AM Age: 41 years old Clinical indication: Injury or trauma; Blunt trauma; Left; Patient HX: C/O L knee pain after falling; Additional info: Fall TECHNIQUE: Imaging protocol: XR Left knee. Views: 3 views. COMPARISON: CR XR femur LT min 2V* [id number] 08/28/2021 4:47 PM FINDINGS: Bones/joints: Normal. Soft tissues: Normal. XR/XR knee LT 3V* [id number] IMPRESSION: No acute findings.
--- NOTE | 2021-08-31 00:52 | CTR_ITS ---
PROCEDURE INFORMATION: Exam: CT Head Without Contrast Exam date and time: 08/31/2021 1:14 AM Age: 41 years old Clinical indication: Injury or trauma; Blunt trauma (contusions or hematomas); Without loss of consciousness; Patient HX: C/O BEJARANO after falling denies loc; Additional info: Fall hit head TECHNIQUE: Imaging protocol: Computed tomography of the head without contrast. Radiation optimization: All CT scans at this facility use at least one of these dose optimization techniques: automated exposure control; mA and/or kV adjustment per patient size (includes targeted exams where dose is matched to clinical indication); or iterative reconstruction. COMPARISON: CT head wo con* [id number] 08/28/2021 5:23 PM RADIATION DOSE METRICS: Total DLP (mGy-cm): 870.65 FINDINGS: Brain: Normal. No hemorrhage. Unremarkable white matter. No mass effect. Cerebral ventricles: No ventriculomegaly. Paranasal sinuses: Visualized sinuses are unremarkable. No fluid levels. Mastoid air cells: Visualized mastoid air cells are well aerated. Bones/joints: Unremarkable. No acute fracture. Soft tissues: Unremarkable. CT/CT head wo con* [id number] IMPRESSION: No acute intracranial abnormality.
--- NOTE | 2021-08-31 00:52 | XRR_ITS ---
PROCEDURE INFORMATION: Exam: XR Right Hand Exam date and time: 08/31/2021 12:57 AM Age: 41 years old Clinical indication: Injury or trauma; Blunt trauma (contusions or hematomas); Right; Prior surgery; Surgery date: 6+ months; Surgery type: Amputation; Patient HX: C/O R hand pain after falling; Additional info: Fall TECHNIQUE: Imaging protocol: XR Right hand. Views: 3 or more views. COMPARISON: No relevant prior studies available. FINDINGS: Bones/joints: Status post amputation of the 2nd digit of the right hand at the level of the proximal interphalangeal joint. Status post amputation of the 3rd digit right hand at the level of the distal diaphysis of the proximal phalanx. There is deformity of the proximal phalanx of the 5th digit compatible with a healed fracture. There is foreshortening of the 5th metacarpal likely idiopathic in this patient. Soft tissues: Normal. XR/XR hand RT min 3V* [id number] IMPRESSION: 1. There are no acute osseous findings. 2. Amputations of the 2nd 3rd digits of the right hand as described above. 3. Evidence of a healed fracture of the proximal phalanx of the 5th digit.
--- NOTE | 2021-08-31 00:52 | XRR_ITS ---
PROCEDURE INFORMATION: Exam: XR Left Ribs with PA Chest Exam date and time: 08/31/2021 1:04 AM Age: 41 years old Clinical indication: Injury or trauma; Rib area, left side; Blunt trauma; Patient HX: C/O L lat rib pain after falling; Additional info: Fall chest inj TECHNIQUE: Imaging protocol: XR Left ribs with PA chest. Views: 3 views COMPARISON: CR (CHEST, ) 08/28/2021 5:05 PM FINDINGS: Lungs: There is a background of emphysema and pulmonary fibrosis. There are some increased interstitial opacities seen predominately within the lower hemithoraces and mild indistinctness seen within the pulmonary vasculature, findings that could represent mild pulmonary edema. There are some strandy opacities present in lung bases likely representing atelectasis. Pleural spaces: There may be small bilateral pleural effusions. Heart/Mediastinum: Unremarkable. No cardiomegaly. Bones/joints: Unremarkable. XR/XR ribs LT mn 3V w CXR1V [id number] IMPRESSION: 1. There are no acute osseous findings. 2. Background of emphysema and pulmonary fibrosis. 3. Increased interstitial opacities and mild indistinctness of the pulmonary vasculature in the lower hemithoraces may represent mild pulmonary edema. 4. Strandy opacities in the lung bases compatible with atelectasis. 5. There may be small bilateral pleural effusions.
[2021-08-31] MEDS: oxyCODONE-APAP 5-325 mg Tablet 2 TAB PO (01:10)
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
--- NOTE | 2021-08-31 02:18 | PC.NURSE ---
pt rates pain 6/10 pain medication helped a little
[2021-08-31 02:45] VITALS: BP 177/108; PULSE 92; RESP 22; O2SAT 92
== END 2021-08-31 02:45 | disposition home or self-care (01) ==
PROVIDERS: Emergency Provider Emergency Medicine; PCP Family Medicine
DX: R07.9 Chest pain, unspecified (principal); R51.9 Headache, unspecified; W01.0XXA Fall on same level from slipping, tripping and stumbling without subsequent striking against object, initial encounter; Z79.82 Long term (current) use of aspirin; Z79.02 Long term (current) use of antithrombotics/antiplatelets
CPT/HCPCS: 70450; 71101; 73130; 73562; 99283

== ENCOUNTER 2021-08-31 09:08 | Inpatient (IN) | payer MEDICARE, MEDICAID, SELFPAY ==
[2021-08-31] VITALS (59 sets, daily range): BP systolic 164–258; BP diastolic 88–166; PULSE 83–114; RESP 0–33; TEMP 36.2–37.1; O2SAT 80–100; BMI 33.0
--- NOTE | 2021-08-31 09:13 | ED_ITS ---
HPI - SOB/Dyspnea General: Chief Complaint: Shortness of Breath/Dyspnea Stated Complaint: SOB Time Seen by Provider: 08/31/21 09:13 Limitations: other (Severe respiratory distress) History of Present Illness: HPI Narrative: Mr. Gibbs is a 41-year-old gentleman with complex past medical history presenting to the emergency department due to shortness of breath and respiratory distress. Upon arrival patient is markedly ill appearance with respiratory distress which severely limits history. Per supplemental history provided by bystander bedside he missed the last dialysis on Thursday. Onset (ago): hour(s) Timing: progressively worsening Severity: severe Review of Systems General: Reports: ROS unobtainable due to medical condition PFSH ED PFSH: Medical History (HFpEF) heart failure with preserved ejection fraction Abdominal ascites Abdominal distention Abnormality of rib determined by X-ray Acute diastolic CHF (congestive heart failure) Anasarca Anemia Anxiety with depression Arteriovenous fistula for hemodialysis in place, secondary Ascites Atherosclerosis of coronary artery Chronic abdominal pain Chronic respiratory failure Congestive heart failure COPD (chronic obstructive pulmonary disease) COPD (chronic obstructive pulmonary disease) COVID 05/25 Current smoker Degenerative disc disease, lumbar End-stage renal disease needing dialysis End-stage renal disease on hemodialysis ESRD on dialysis Generalized anxiety disorder with panic attacks Gross hematuria Hemoptysis Hepatomegaly Hyperkalemia Hypertension Hypertensive emergency Ileus PHT (pulmonary hypertension) Pulmonary embolism 09/21 Inconclusive for very tiny peripheral LEFT lower lobe pulmonary artery sub segmental emboli versus poor opacification. Right heart failure with reduced right ventricular function Smoking addiction Transaminitis Urethral stricture Surgical History H/O hand surgery Amputation right 2&3 fingers 2017 History of adenoidectomy Stented coronary artery Family History Father No problems noted. Other Hypertension Social History Smoking and tobacco status: never smoked Alcohol intake: never Marital status: Number of children: 3 Current occupational status: disabled History of recent travel: No Physical Exam Const: COMMON NORMALS: alert GENERAL APPEARANCE: in distress and ill appearing HENMT: COMMON NORMALS: normocephalic and atraumatic HEAD & SCALP: normocephalic and atraumatic Eye: COMMON NORMALS: conjunctivae normal CONJUNCTIVA: Yes conjunctivae normal SCLERA: sclerae normal Neck/C-Spine: COMMON NORMALS: supple GENERAL: Yes trachea midline Resp: EFFORT & INSPECTION: Yes tachypneic, Yes respiratory distress, Yes labored, Yes retractions and Yes uses accessory muscles AUSCULTATION: diminished lung sounds Cardio: COMMON NORMALS: regular rhythm RATE: tachycardic RHYTHM: regular rhythm GI: COMMON NORMALS: Soft to palpation PALPATION: Yes Soft to palpation, No Tenderness to palpation present (GI), No Guarding due to palpation present (GI), No Rigid due to palpation and Yes Other GI palpation findings present (Fluid present) Extremity: GENERAL: Yes normal exam except as noted and No edema Neuro: COMMON NORMALS: moves all extremities SENSORIUM/ORIENTATION: Yes alert and No Orientation impaired Psych: COMMON NORMALS: mental status grossly normal and Normal thought process present THOUGHT PROCESS: Normal thought process present Course ED course: - Patient was seen and evaluated by me at bedside - Patient placed on cardiac monitors, IV access obtained - Initial evaluation notable for severe respiratory distress. - BiPAP ordered with inline breathing treatments for markedly diminished breath sounds and wheezes. Given hypertension nitro drip also ordered for hypertensive emergency - Labs and xrays personally interpreted by me. EKGs reviewed with sinus tachycardia, no STEMI. Mild peaking of T waves, calcium ordered. - Labs notable for mild leukocytosis, near baseline macrocytic anemia. Metabolic panel with mild hypokalemia. Initial ABG with evidence of respiratory failure including hypercapnia. BNP is elevated. Delta troponin positive likely secondary to type II NSTEMI - Imaging notable for increased pulmonary vascular congestion. Per radiology read right perihilar and lower lobe interstitial congestion which is worse than prior. - Upon serial reexamination after treatment the patient was improved with improving ABG - Based on patient history, evaluation, and testing as interpreted the most likely cause of the patient's condition is acute on chronic hypercapnic and hypoxic respiratory failure which is likely multifactorial secondary to COPD, volume overload, hypertensive emergency - The results of ED evaluation were discussed with the patient including plan for admission due to requirement for level of care not available if discharged to prevent significant worsening/deterioration. - Admitting service was contacted and Dr Amin with the hospitalist service agreed to admit the patient. Additionally consulted nephrology. - Patient was admitted without further deterioration or significant events. Note: Click bubbles or prepopulated cantu in note writing are used for assistance with data collection and billing and are inherently more limited than narrative and other text portions of this note. Please use narrative for additional clin ical history and defer to narrative/free test for any case of contradictory information. If information appears in only free text or click bubble it should be considered present or absent as reported. Please contact note parts data writer for clarifications of clinical information or contradictory information. MDM is a brief summary, contradictory or erroneous seeming information should be clarified and full note should be reviewed. Vital Signs: Vital signs: Vital Signs Temperature 97.5 F L 09/05/21 17:20 Pulse Rate 92 09/05/21 18:00 Respiratory Rate 14 09/05/21 18:00 Blood Pressure 169/100 09/05/21 18:00 Pulse Oximetry 95 09/05/21 18:00 MDM - SOB/Dyspnea Medical Decision Making 41-year-old gentleman with complex past medical history presenting with severe respiratory distress. Placed on BiPAP with improving ABG. Etiology of symptoms likely multifactorial given history of end-stage renal disease and COPD as well as severe hypertension. Admitted on BiPAP and nitro drip in critical condition. Medical Records I reviewed the patient's medical records. Lab Data I reviewed the patient's lab results. : 09/05/21 04:13 09/05/21 04:13 Labs/Radiology: Radiology Impressions Chest CT 09/01/21 12:57 IMPRESSION: 1. Suspect CHF or fluid overload. Cannot rule out a diffuse pneumonitis. 2. Mediastinal adenopathy. 3. Pericardial effusion and cardiomegaly. 4. Ascites. 5. Questionable renal disease. Head CT 09/01/21 17:02 IMPRESSION: 1. No CT evidence of acute intracranial pathology. 2. Additional findings, as above. Abdomen Ultrasound 09/03/21 13:30 IMPRESSION: Small amount of peritoneal ascites. No paracentesis performed. Abdomen/Pelvis CT 09/03/21 14:10 IMPRESSION: 1. Small RIGHT greater than LEFT pleural effusions with compressive atelectasis in the lung bases. 2. Mild/moderate pericardial effusion. 3. Marked hepatomegaly unchanged from previous. 4. Perihepatic and perisplenic ascites. Moderate abdominal and pelvic ascites. 5. Moderate diffuse pancolonic constipation. Distended stomach with food products. 6. No evidence of high-grade small or large bowel obstruction. 7. Grade 1 anterolisthesis L5 on S1 with chronic spondylolysis. Chest X-Ray 09/04/21 17:44 IMPRESSION: 1. Left upper lobe and bilateral lower lobe atelectasis and/or pneumonia. A small left pleural effusion is also noted. 2. Mild cardiomegaly. Laboratory Results WBC 11.2 10^3/uL (4.0-10.0) H 08/31/21 09:39 RBC 3.08 10^6/uL (4.1-5.3) L 08/31/21 09:39 Hgb 9.2 g/dL (11.7-16.6) L 08/31/21 09:39 Hct 29.5 % (42.0-52.0) L 08/31/21 09:39 MCV 95.8 fl (80-94) H 08/31/21 09:39 MCH 29.9 pg (28.0-34.0) 08/31/21 09:39 MCHC 31.2 g/dL (30.0-36.0) 08/31/21 09:39 RDW 18.3 % (12.1-15.1) H 08/31/21 09:39 Plt Count 241 10^3/cmm (130-400) 08/31/21 09:39 MPV 10.1 fL (7.4-10.4) 08/31/21 09:39 Neut % (Auto) 69.4 % 08/31/21 09:39 Lymph % (Auto) 17.5 % 08/31/21 09:39 [place] % (Auto) 7.9 % 08/31/21 09:39 Eos % (Auto) 4.0 % 08/31/21 09:39 Baso % (Auto) 0.8 % 08/31/21 09:39 Neut # (Auto) 7.73 10^3/uL (1.8-7.7) H 08/31/21 09:39 Lymph # (Auto) 2.0 10^3/uL (0.8-4.8) 08/31/21 09:39 [place] # (Auto) 0.9 10^3/uL (0.2-0.9) 08/31/21 09:39 Eos # (Auto) 0.5 10^3/uL (0.0-0.8) 08/31/21 09:39 Baso # (Auto) 0.1 10^3/uL (0.0-0.1) 08/31/21 09:39 Nucleated RBC % (auto) 0.4 % 08/31/21 09:39 Nucleated RBCs # 0.0 /100WBC 08/31/21 09:39 Specimen Type Arterial 08/31/21 10:05 Sample Site Radial, right 08/31/21 10:05 ABG pH 7.08 (7.35-7.45) L* 08/31/21 10:05 ABG pCO2 82.8 mmHg (35-45) H* 08/31/21 10:05 ABG pO2 122.0 mmHg (80.0-100.0) H 08/31/21 10:05 ABG HCO3 24.7 mmol/L (22-26) 08/31/21 10:05 ABG Base Excess -5.9 mmol/L (-2.0-2.0) L 08/31/21 10:05 Alexei Test Pos 08/31/21 10:05 Hematocrit 28.6 % (42-52) L 08/31/21 10:05 O2 Delivery Device Bipap 08/31/21 10:05 FiO2 50.0 % 08/31/21 10:05 PEEP 8.0 cmH20 08/31/21 10:05 Executive Legal Secretary ID Nas 08/31/21 10:05 Sodium 132 mmol/L (136-145) L 08/31/21 09:39 Potassium 5.2 mmol/L (3.5-5.1) H 08/31/21 09:39 Chloride 92 mmol/L (98-107) L 08/31/21 09:39 Carbon Dioxide 24 mmol/L (22-29) 08/31/21 09:39 Anion Gap 21.2 (5-19) H 08/31/21 09:39 BUN 67 mg/dL (6-20) H 08/31/21 09:39 Creatinine 8.2 mg/dL (0.7-1.2) H* 08/31/21 09:39 GFR Calculation 7.3 mL/min (90-130) L 08/31/21 09:39 Glucose 124 mg/dL (65-115) H 08/31/21 09:39 Calculated Osmolality 295 mOsm/kg (285-295) 08/31/21 09:39 Calcium 9.0 mg/dL (8.5-10.5) 08/31/21 09:39 Total Bilirubin 0.7 mg/dL (0.15-1.2) 08/31/21 09:39 AST 20 U/L (0-40) 08/31/21 09:39 ALT 14 U/L (0-41) 08/31/21 09:39 Alkaline Phosphatase 188 IU/L (40-130) H 08/31/21 09:39 Troponin T Baseline 75 ng/L (0-15) H 08/31/21 09:39 NT-Pro-B Natriuret Pep 81695 pg/mL (0-125) H 08/31/21 09:39 Total Protein 8.0 g/dL (6.6-8.7) 08/31/21 09:39 Albumin 4.6 g/dL (3.5-5.2) 08/31/21 09:39 Globulin 3.4 g/dL (1.3-4.6) 08/31/21 09:39 Critical Care Time Critical Care Time: Critical Care Time: Yes Total Critical Care Time: 80 Attestation: Due to a high probability of clinically significant, possibly life threatening deterioration, the patient required my highest level of attention and preparedness to intervene emergently and I personally spent this critical care time directly and personally managing the patient. This critical care time included obtaining a history; examining the patient; pulse oximetry; ordering and review of laboratory and imaging studies; arranging urgent treatment with development of a management plan; evaluation of patient's response to treatment; frequent reassessment; and, discussions with other providers as applicable. It was exclusive of separately billable procedures. Primary system involved cardiopulmonary Discharge Plan Discharge Patient Disposition: Admitted As Inpatient Admit Provider: Brigitte Amin Clinical Impression: ESRD on dialysis, COPD (chronic obstructive pulmonary disease), Hypertensive emergency, Pulmonary edema, Acute on chronic respiratory failure with hypoxia and hypercapnia Condition: Critical Coding Level of Care Code ED Securities Underwriter for Cristi Fwd Exam Comprehensive
--- NOTE | 2021-08-31 09:14 | ECG_ITS ---
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 Measurements Intervals [place] Rate: 118 P: 60 AR: 183 QRS: 65 QRSD: 113 T: 73 QT: 308 QTc: 432 Interpretive Statements SINUS TACHYCARDIA with significant baseline artifact POSSIBLE LEFT VENTRICULAR HYPERTROPHY [VOLTAGE CRITERIA PLUS LAE OR QRS WIDENING] MODERATE ST DEPRESSION [0.05+ mV ST DEPRESSION] Compared to ECG 08/28/2021 07:13:09 Sinus rhythm no longer present ST (T wave) deviation still present Electronically Signed On 09-01-2021 8:09:01 CDT by Bharathi Markham M.D. [id number]
--- NOTE | 2021-08-31 09:14 | XRR_ITS ---
PROCEDURE INFORMATION: Exam: XR Chest Exam date and time: 08/31/2021 9:24 AM Age: 41 years old Clinical indication: Shortness of breath; Additional info: SOB TECHNIQUE: Imaging protocol: XR of the chest. Views: 1 view. COMPARISON: CR XR ribs LT mn 3V w CXR1V [id number] 08/31/2021 1:04 AM FINDINGS: Lungs: Right perihilar vascular and interstitial congestion extending into the right lower lobe. This finding has increased since prior examination. The lungs are otherwise clear. No consolidation. Pleural spaces: Unremarkable. No pleural effusion. No pneumothorax. Heart/Mediastinum: Unremarkable. No cardiomegaly. Bones/joints: Unremarkable. XR/XR chest 1V portable [id number] IMPRESSION: 1. Right perihilar and lower lobe interstitial congestion increased since prior 2. Otherwise negative chest examination
[2021-08-31] MEDS: calcium gluconate 0.9% NaCL 1 GM/50 ML PREMIX IV (09:43)
[2021-08-31 09:48] LABS: Basophils # 0.1 10^3/uL (0.0-0.1); Basophils % 0.8 %; Eosinophils # 0.5 10^3/uL (0.0-0.8); Hematocrit 29.5 % (42.0-52.0); Hemoglobin 9.2 g/dL (11.7-16.6); Lymphocytes % 17.5 %; Mean Corpuscular HGB Conc 31.2 g/dL (30.0-36.0); Mean Corpuscular Hemoglobin 29.9 pg (28.0-34.0); Mean Corpuscular Volume 95.8 fl (80-94); Mean Platelet Volume 10.1 fL (7.4-10.4); Monocytes # 0.9 10^3/uL (0.2-0.9); Monocytes % 7.9 %; Neutrophils # 7.73 10^3/uL (1.8-7.7); Neutrophils % 69.4 %; Nucleated Red Blood Cells % 0.4 %; Platelet Count 241 10^3/cmm (130-400); Red Blood Count 3.08 10^6/uL (4.1-5.3); Red Cell Distribution Width 18.3 % (12.1-15.1); White Blood Count 11.2 10^3/uL (4.0-10.0)
[2021-08-31] MEDS: nitroglycerin drip 50 MG/250 ML PREMIX IV (09:51)
[2021-08-31 10:12] LABS: Arterial Blood Gas Hematocrit 28.6 % (42-52); Base Excess ABG -5.9 mmol/L (-2.0-2.0); Blood Gas Allen Test Pos; Blood Gas Sample Site Radial, right; Blood Gas Sample Type Arterial; HCO3 ABG 24.7 mmol/L (22-26); Oxygen Device BIPAP
[2021-08-31 10:13] LABS: Troponin(5th) Baseline 75 ng/L (0-15)
[2021-08-31 10:15] LABS: ABG PCO2 82.8 mmHg (35-45); ABG PH Result 7.08 (7.35-7.45)
[2021-08-31 10:23] LABS: Alanine Aminotransferase 14 U/L (0-41); Albumin Level 4.6 g/dL (3.5-5.2); Alkaline Phosphatase 188 IU/L (40-130); Anion Gap 21.2 (5-19); Aspartate Amino Transferase 20 U/L (0-40); Blood Urea Nitrogen 67 mg/dL (6-20); Carbon Dioxide 24 mmol/L (22-29); Chloride 92 mmol/L (98-107); Globulin 3.4 g/dL (1.3-4.6); Glomerular Filtration Rate 7.3 mL/min (90-130); Glucose 124 mg/dL (65-115); Osmolality Calculated 295 mOsm/kg (285-295); Potassium 5.2 mmol/L (3.5-5.1); Sodium 132 mmol/L (136-145); Total Bilirubin 0.7 mg/dL (0.15-1.2)
--- NOTE | 2021-08-31 11:14 | ECG_ITS ---
[facility] Test Date: 2021-08-31 Pat Name: Mal Gibbs Department: Room: Gender: Male Director Of Technology: : 1980 Requested By: Jerry Stevens Order Number: [id number] Mohini MD: Bharathi Markham M.D. Measurements Intervals [place] Rate: 87 P: NM: QRS: 49 QRSD: 112 T: 71 QT: 374 QTc: 452 Interpretive Statements Sinus rhythm MODERATE INTRAVENTRICULAR CONDUCTION DELAY [110+ ms QRS DURATION] ABNORMAL RHYTHM ECG Compared to ECG 08/28/2021 07:13:09 Intraventricular conduction delay now present Left ventricular hypertrophy no longer present ST (T wave) deviation no longer present Electronically Signed On 09-01-2021 8:20:02 CDT by Bharathi Markham M.D. [id number]
[2021-08-31 11:27] LABS: Troponin 5 2HR 85.52 ng/L (0-15)
[2021-08-31 11:29] LABS: Troponin 5 2HR Delta 10.52 ABS# (0-10)
[2021-08-31 11:38] LABS: Arterial Blood Gas Hematocrit 26.1 % (42-52); Base Excess ABG -3.9 mmol/L (-2.0-2.0); Blood Gas Allen Test Pos; Blood Gas Sample Site Radial, right; Blood Gas Sample Type Arterial; HCO3 ABG 22.3 mmol/L (22-26); Oxygen Device BIPAP
--- NOTE | 2021-08-31 11:43 | PM.HP ---
Providers/Chief Complaint Admitting Physician: Brigitte Amin MD Primary Care Provider: Mal Peres DO Chief Complaint: SOB History of Present Illness Mal Gibbs is a 41 year old male with past medical history of congestive heart failure with preserved ejection fraction, COPD, end-stage renal disease on dialysis Thursday, recurrent admissions for fluid overload due to sometimes missed dialysis sessions and sometimes noncompliance to medications presents to the hospital today for shortness of breath and respiratory distress. Supplemental history was provided by bystander bedside who stated that patient misses last dialysis on Thursday. Patient is well-known to myself and hospital staff as he has had numerous admissions in the past couple of months. Review of systems negative except noted in HPI. Pt unable to provide much Hx. ED course: Blood pressure 258/166, respiratory 28, pulse 110, temperature 97.1, pulse ox 97%. BNP 48,000, chest x-ray showed right perihilar and lower lobe interstitial congestion increased since prior. Ribs x-ray shows pulmonary fibrosis and increased interstitial opacities and mild indistinctness of the pulmonary vasculature and lower hemithoraces may represent pulmonary edema, strandy opacities in lung bases compatible with atelectasis, small bilateral pleural effusions. Knee x-ray has no acute findings, head CT is unremarkable. Patient was placed on BiPAP and nitroglycerin drip was started. Nephrology was consulted stat. Plan is to do dialysis. Patient will be admitted to ICU. Medications/Allergies Home Medications Medication Instructions Recorded Confirmed Last Taken Type pantoprazole 40 mg tablet,delayed 40 mg PO DAILY 02/25/21 08/31/21 08/15/21 History release rifaximin 550 mg tablet (Xifaxan) 550 mg PO BID 06/10/21 08/31/21 08/15/21 History amlodipine 10 mg tablet 10 mg PO DAILY 30 Days #30 tab 07/16/21 08/31/21 08/15/21 Rx aspirin 81 mg tablet,delayed 81 mg PO DAILY #30 tab 07/25/21 08/31/21 08/15/21 Rx release atorvastatin 40 mg tablet 40 mg PO BEDTIME #30 tab 07/25/21 08/31/21 08/15/21 Rx carvedilol 25 mg tablet 25 mg PO BID 30 Days #60 tab 07/25/21 08/31/21 08/15/21 Rx clopidogrel 75 mg tablet 75 mg PO DAILY #30 tab 07/25/21 08/31/21 08/15/21 Rx nitroglycerin 0.4 mg sublingual 0.4 mg SUBLINGUAL Q5M PRN 30 Days 08/05/21 08/31/21 Unknown Rx tablet #30 tab albuterol sulfate 90 mcg/actuation 2 puff INHALATION QID PRN #2 g 08/06/21 08/31/21 08/15/21 Rx aerosol inhaler (ProAir HFA) quetiapine 25 mg tablet (Seroquel) 25 mg PO DAILY #30 tab 08/06/21 08/31/21 08/15/21 Rx umeclidinium 62.5 mcg/actuation 1 inh INHALATION DAILY #30 ea 08/06/21 08/31/21 08/15/21 Rx blister powder for inhalation (Incruse Ellipta) cyclobenzaprine 10 mg tablet 10 mg PO Q12H PRN #30 tab 08/08/21 08/31/21 08/15/21 Rx fluticasone propionate 50 2 spray INTRANASAL DAILY PRN 08/12/21 08/31/21 08/15/21 History mcg/actuation nasal spray,suspension isosorbide mononitrate 60 mg 60 mg PO DAILY 08/12/21 08/31/21 08/15/21 History tablet,extended release 24 hr sevelamer carbonate 800 mg tablet See Rx Instructions .ROUTE .COMPLEX 08/12/21 08/31/21 08/15/21 History (Renvela) hydralazine 50 mg tablet 50 mg PO TID 08/16/21 08/31/21 08/15/21 History minoxidil 10 mg tablet 10 mg PO BID #180 tab 08/27/21 08/31/21 Unknown Rx nicotine (polacrilex) 4 mg buccal 4 mg BUCCAL Q1H PRN #81 ea 08/27/21 08/31/21 Unknown Rx lozenge nicotine 14 mg/24 hr daily 1 patch TRANSDERMAL DAILY #14 ea 08/27/21 08/31/21 Unknown Rx transdermal patch clonazepam 0.5 mg tablet 1 mg PO TID #90 tab 08/28/21 08/31/21 Unknown Rx clonidine 0.1 mg/24 hr weekly 1 patch TRANSDERMAL .weekly #4 ea 08/28/21 08/31/21 Unknown Rx transdermal patch albuterol sulfate 2.5 mg INHALATION BID PRN 08/31/21 08/31/21 Unknown History tramadol 50 mg tablet 50 mg PO BID PRN #10 tab 08/31/21 08/31/21 Unknown Rx Allergies Allergy/AdvReac Type Severity Reaction Status Date / Time nifedipine Allergy LIZ-Stevenll Verified 08/28/21 16:31 Lip/Tongue/Throat PFSH Acute PFSH: Medical History (HFpEF) heart failure with preserved ejection fraction Abdominal ascites Abdominal distention Abnormality of rib determined by X-ray Acute diastolic CHF (congestive heart failure) Anasarca Anemia Anxiety with depression Arteriovenous fistula for hemodialysis in place, secondary Ascites Atherosclerosis of coronary artery Chronic abdominal pain Chronic respiratory failure Congestive heart failure COPD (chronic obstructive pulmonary disease) COPD (chronic obstructive pulmonary disease) COVID 05/25 Current smoker Degenerative disc disease, lumbar End-stage renal disease needing dialysis End-stage renal disease on hemodialysis ESRD on dialysis Generalized anxiety disorder with panic attacks Gross hematuria Hemoptysis Hepatomegaly Hyperkalemia Hypertension Hypertensive emergency Ileus PHT (pulmonary hypertension) Pulmonary embolism 09/21 Inconclusive for very tiny peripheral LEFT lower lobe pulmonary artery sub segmental emboli versus poor opacification. Right heart failure with reduced right ventricular function Smoking addiction Transaminitis Urethral stricture Surgical History H/O hand surgery Amputation right 2&3 fingers 2017 History of adenoidectomy Stented coronary artery Family History Father No problems noted. Other Hypertension Social History Smoking and tobacco status: never smoked Alcohol intake: never Marital status: Number of children: 3 Current occupational status: disabled History of recent travel: No Vitals/I&O/Wt Last Vital Signs Temp 97.1 F L 08/31/21 10:01 Pulse 110 H 08/31/21 10:03 Resp 28 H 08/31/21 10:03 BP 258/166 08/31/21 10:01 Pulse Ox 97 08/31/21 10:03 Weight last 48 hrs Weight 113.398 kg Physical Exam Narrative: General: Awakes when prompted, patient seen in ER. Pt on bipap, slightly drowsy. Does open eyes and responds if asked a question. HEENT: NC/ atraumatic, EOMI, on bipap Cardio: Normal S1-S2, S3 heard, no apparent murmurs Respiratory: Diminished bilateral air entry bilateral crackles at the bases.? GI: Abdomen soft, nontender, distended secondary to ascites, bowel sounds + Extremities: 2+ pitting edema b/l Data : 08/31/21 09:39 08/31/21 09:39 A&P Assessment and plan (1) ESRD on dialysis: Status: Acute (2) ARTEM (subconjunctival hemorrhage): Status: Acute Qualifiers: Laterality: left Qualified Code(s): H11.32 - Conjunctival hemorrhage, left eye (3) COPD (chronic obstructive pulmonary disease): Status: Acute Qualifiers: COPD type: unspecified COPD Qualified Code(s): J44.9 - Chronic obstructive pulmonary disease, unspecified (4) Hypertensive emergency: Status: Acute (5) Pulmonary edema: Status: Acute Qualifiers: Chronicity: acute Qualified Code(s): J81.0 - Acute pulmonary edema (6) Acute on chronic respiratory failure with hypoxia and hypercapnia: Status: Acute (7) Hypertension: Status: Acute (8) Nicotine dependence, cigarettes, with other nicotine-induced disorders: Status: Acute Plan #Hypertensive emergency #Acute on chronic respiratory failure with hypercarbia #Respiratory acidosis #End-stage renal disease dialysis dependent Thursday #Noncompliance to dialysis #Elevated troponin most likely demand ischemia - Admit to ICU ? Continue nitroglycerin drip. Gradually resume home antihypertensives. Not to lower blood pressure more than 25% for 6 hours. ? Consult nephrology.. Plan to dialyze today ? Continue BiPAP. -Echo was performed 08/18/2021. ? Monitor on telemetry Full code Attestations Medical Necessity Statement*: requires ICu level care. Coding Level of Care Code Acute Freelance Director for Chg Fwd Diagnoses ESRD on dialysis N18.6; Z99.2 ARTEM (subconjunctival hemorrhage) H11.32 Laterality: left COPD (chronic obstructive pulmonary disease) J44.9 COPD type: unspecified COPD Hypertensive emergency I16.1 Pulmonary edema J81.0 Chronicity: acute Acute on chronic respiratory failure with hypoxia and hypercapnia J96.21; J96.22 Hypertension I10 Nicotine dependence, cigarettes, with other nicotine-induced disorders F17.218
--- NOTE | 2021-08-31 12:34 | PM.CONSULT ---
Providers/Reason For Consult Consulting Physician/Specialty*: Nephrology Reason for Consult*: ESRD Attending Physician: Brigitte Amin MD Primary Care Provider: Mal Peres DO History of Present Illness History of Present Illness Mr. Gibbs is well-known to us. Came in with shortness of breath, now maintaining her levels of oxygen on BiPAP. We are unsure as to when he received his last session of dialysis, however, we gave him dialysis on on Thursday during his last hospitalization. Medications/Allergies Home Medications Medication Instructions Recorded Confirmed Last Taken Type pantoprazole 40 mg tablet,delayed 40 mg PO DAILY 02/25/21 08/31/21 08/15/21 History release rifaximin 550 mg tablet (Xifaxan) 550 mg PO BID 06/10/21 08/31/21 08/15/21 History amlodipine 10 mg tablet 10 mg PO DAILY 30 Days #30 tab 07/16/21 08/31/21 08/15/21 Rx aspirin 81 mg tablet,delayed 81 mg PO DAILY #30 tab 07/25/21 08/31/21 08/15/21 Rx release atorvastatin 40 mg tablet 40 mg PO BEDTIME #30 tab 07/25/21 08/31/21 08/15/21 Rx carvedilol 25 mg tablet 25 mg PO BID 30 Days #60 tab 07/25/21 08/31/21 08/15/21 Rx clopidogrel 75 mg tablet 75 mg PO DAILY #30 tab 07/25/21 08/31/21 08/15/21 Rx nitroglycerin 0.4 mg sublingual 0.4 mg SUBLINGUAL Q5M PRN 30 Days 08/05/21 08/31/21 Unknown Rx tablet #30 tab albuterol sulfate 90 mcg/actuation 2 puff INHALATION QID PRN #2 g 08/06/21 08/31/21 08/15/21 Rx aerosol inhaler (ProAir HFA) quetiapine 25 mg tablet (Seroquel) 25 mg PO DAILY #30 tab 08/06/21 08/31/21 08/15/21 Rx umeclidinium 62.5 mcg/actuation 1 inh INHALATION DAILY #30 ea 08/06/21 08/31/21 08/15/21 Rx blister powder for inhalation (Incruse Ellipta) cyclobenzaprine 10 mg tablet 10 mg PO Q12H PRN #30 tab 08/08/21 08/31/21 08/15/21 Rx fluticasone propionate 50 2 spray INTRANASAL DAILY PRN 08/12/21 08/31/21 08/15/21 History mcg/actuation nasal spray,suspension isosorbide mononitrate 60 mg 60 mg PO DAILY 08/12/21 08/31/21 08/15/21 History tablet,extended release 24 hr sevelamer carbonate 800 mg tablet See Rx Instructions .ROUTE .COMPLEX 08/12/21 08/31/21 08/15/21 History (Renvela) hydralazine 50 mg tablet 50 mg PO TID 08/16/21 08/31/21 08/15/21 History minoxidil 10 mg tablet 10 mg PO BID #180 tab 08/27/21 08/31/21 Unknown Rx nicotine (polacrilex) 4 mg buccal 4 mg BUCCAL Q1H PRN #81 ea 08/27/21 08/31/21 Unknown Rx lozenge nicotine 14 mg/24 hr daily 1 patch TRANSDERMAL DAILY #14 ea 08/27/21 08/31/21 Unknown Rx transdermal patch clonazepam 0.5 mg tablet 1 mg PO TID #90 tab 08/28/21 08/31/21 Unknown Rx clonidine 0.1 mg/24 hr weekly 1 patch TRANSDERMAL .weekly #4 ea 08/28/21 08/31/21 Unknown Rx transdermal patch albuterol sulfate 2.5 mg INHALATION BID PRN 08/31/21 08/31/21 Unknown History tramadol 50 mg tablet 50 mg PO BID PRN #10 tab 08/31/21 08/31/21 Unknown Rx Allergies Allergy/AdvReac Type Severity Reaction Status Date / Time nifedipine Allergy ALGY-Swell Verified 08/28/21 16:31 Lip/Tongue/Throat Current Medications Generic Name Dose Route Start Last Admin Trade Name Freq PRN Reason Stop Dose Admin Nitroglycerin/Dextrose 50 mg in 250 mls @ 0 mls/hr 08/31/21 09:45 08/31/21 09:51 Nitroglycerin Drip IV 5 mcg/min .Q0M ARTEM 1.5 mls/hr Administration Protocol Per Protocol PFSH Acute PFSH: Medical History (HFpEF) heart failure with preserved ejection fraction Abdominal ascites Abdominal distention Abnormality of rib determined by X-ray Acute diastolic CHF (congestive heart failure) Anasarca Anemia Anxiety with depression Arteriovenous fistula for hemodialysis in place, secondary Ascites Atherosclerosis of coronary artery Chronic abdominal pain Chronic respiratory failure Congestive heart failure COPD (chronic obstructive pulmonary disease) COPD (chronic obstructive pulmonary disease) COVID 05/25 Current smoker Degenerative disc disease, lumbar End-stage renal disease needing dialysis End-stage renal disease on hemodialysis ESRD on dialysis Generalized anxiety disorder with panic attacks Gross hematuria Hemoptysis Hepatomegaly Hyperkalemia Hypertension Hypertensive emergency Ileus PHT (pulmonary hypertension) Pulmonary embolism 09/21 Inconclusive for very tiny peripheral LEFT lower lobe pulmonary artery sub segmental emboli versus poor opacification. Right heart failure with reduced right ventricular function Smoking addiction Transaminitis Urethral stricture Surgical History H/O hand surgery Amputation right 2&3 fingers 2017 History of adenoidectomy Stented coronary artery Family History Father No problems noted. Other Hypertension Social History Smoking and tobacco status: never smoked Alcohol intake: never Marital status: Number of children: 3 Current occupational status: disabled History of recent travel: No Vitals/I&O/Wt Last Vital Signs Temp 97.1 F L 08/31/21 10:01 Pulse 85 08/31/21 12:27 Resp 20 H 08/31/21 12:27 BP 187/119 08/31/21 12:27 Pulse Ox 98 08/31/21 12:27 Weight last 48 hrs Weight 113.398 kg Data : 08/31/21 09:39 08/31/21 09:39 A&P Assessment and plan (1) ESRD on dialysis: Status: Acute Plan 1. ESRD HD today 2K bath, ultrafiltration 3-4 L, it appears he could benefit from the ultrafiltration Dose medication for GFR less than 15 on dialysis 2. Shortness of breath Being treated for COPD and pulm edema, currently on BIPAP 3. Hemodynamics Blood pressure gih pre-dialysis, typical for him 4. Chronic ESRD issues To be handled as an outpatient as part of standard monthly management, continue outpatient home medication. Thank you for consultation, as always it is a pleasure to follow patients with you > 20 minutes spent in evaluation management of case with greater than 50% of time in [id number] counseling. Caden Salazar MD Nephrology [phone] Patient seen and examined via telemedicine, with the assistance of the bedside RN Coding Level of Care Code Acute Screw Machine Set Up Operator for [facility] Fwd Diagnoses ESRD on dialysis N18.6; Z99.2
[2021-08-31 15:39] LABS: Troponin 5 6HR 75.49 ng/L (0-15)
[2021-08-31 15:46] LABS: Troponin 5 6HR Delta 0.49 ng/L (0-12)
--- NOTE | 2021-08-31 19:00 | PC.NURSE ---
Bedside report completed with Kita Mohr Rn. Shift Note: Pt rested in bed through out shift. pt oriented but lethargic. Pt received Hemodialysis today, 4000ml removed. Nitro gtt off, per parameters. SBP remains elevated 180's. Pt remains on BiPap, FIO2 decreased to 30%. Frequent safety and comfort rounds continue. Orders and/or nursing care completed as indicated. Patient monitored for response to intervention and treatment(s). Education provided includes hemodialysis, nitro and plan of care. Patient and/or credit representative verbalized understanding of paln of care and ongoing care. Will continue to monitor.
[2021-08-31] MEDS: hyDRALAzine 50 mg Tablet PO (19:57)
[2021-08-31] MEDS: amlodipine 10 mg Tablet PO (19:57)
[2021-08-31] MEDS: cloNIDine 0.1 mg/24 hr Patch 1 PATCH TRANSDERMA (19:58)
[2021-08-31] MEDS: atorvastatin 40 mg Tablet PO (20:06)
--- NOTE | 2021-08-31 20:08 | PC.NURSE ---
Clonidine Patch New clonidine patch applied to right upper chest per Dr. mello
[2021-08-31] MEDS: carvedilol 25 mg Tablet PO (22:09)
[2021-08-31] MEDS: minoxidil 10 mg Tablet PO (22:09)
--- NOTE | 2021-08-31 22:14 | PC.NURSE ---
Blood Pressure Patient systolic blood pressure noted to be 211, informed gave orders to administer Coreg and Minoxidil.
[2021-09-01] VITALS (90 sets, daily range): BP systolic 123–230; BP diastolic 63–129; PULSE 74–96; RESP 7–31; TEMP 36.3–37; O2SAT 89–99; BMI 23.5
--- NOTE | 2021-09-01 03:05 | PC.NURSE ---
Restart Nitro Gtt Patient blood pressure increased, restarted Nitro gtt per protocol.
[2021-09-01] MEDS: ondansetron 2 mg/ML SDV 2 mL 4 MG IVP (06:06)
--- NOTE | 2021-09-01 06:24 | PC.NURSE ---
Shift Summary Patient had an uneventful shift-he remains alert/oriented x4 and on BIPAP 30% FiO2. Nitro gtt infusing per protocol please see MAR for infusion rate. Left eye bruised, no others wounds noted at this time. Patient reported nausea overnight-PRN medication administered.
[2021-09-01] MEDS: sevelamer 800 mg Tablet 3200 MG PO ×3 (08:12→17:19)
[2021-09-01] MEDS: nicotine 14 mg Patch 1 PATCH TRANSDERMA (08:12)
[2021-09-01] MEDS: hyDRALAzine 50 mg Tablet PO ×3 (08:12→20:21)
[2021-09-01] MEDS: clopidogrel 75 mg Tablet PO (08:12)
[2021-09-01] MEDS: quetiapine 25 mg Tablet PO (08:13)
[2021-09-01] MEDS: carvedilol 25 mg Tablet PO ×2 (08:13→17:18)
[2021-09-01] MEDS: pantoprazole 40 mg SDV IVP (08:13)
[2021-09-01] MEDS: aspirin 81 mg EC Tablet PO (08:13)
[2021-09-01] MEDS: minoxidil 10 mg Tablet PO ×2 (08:13→17:18)
--- NOTE | 2021-09-01 12:57 | CTR_ITS ---
PROCEDURE INFORMATION: Exam: CT Chest Without Contrast; Diagnostic Exam date and time: 09/01/2021 1:31 PM Age: 41 years old Clinical indication: Shortness of breath; Additional info: Shortness of breath, rule out pneumonia/effusion TECHNIQUE: Imaging protocol: Diagnostic computed tomography of the chest without contrast. Radiation optimization: All CT scans at this facility use at least one of these dose optimization techniques: automated exposure control; mA and/or kV adjustment per patient size (includes targeted exams where dose is matched to clinical indication); or iterative reconstruction. COMPARISON: CT angio chest w abd pel w con 08/11/2021 10:58 AM RADIATION DOSE METRICS: Total DLP (mGy-cm): 649.82 FINDINGS: Lungs: Diffuse ground-glass appearance to lungs which could be fluid overload evidence of heart failure. Bilateral basilar atelectasis. Pleural spaces: Slight increase in size of pleural effusions bilaterally. Heart: A cardiomegaly with a suspected stable pericardial effusion. Coronary artery stent and moderate coronary artery calcifications. Lymph nodes: Calcified right hilar lymph nodes. Multiple enlarged mediastinal lymph nodes to 16 mm in the pretracheal space. Vasculature: Coronary artery stents and moderate calcifications. Kidneys and ureters: Questionable atrophic left kidney for which only the superior pole is partially seen. Intraperitoneal space: Ascites. Bones/joints: Unremarkable. No acute fracture. Soft tissues: Stable gynecomastia. CT/CT chest con [id number] IMPRESSION: 1. Suspect CHF or fluid overload. Cannot rule out a diffuse pneumonitis. 2. Mediastinal adenopathy. 3. Pericardial effusion and cardiomegaly. 4. Ascites. 5. Questionable renal disease.
--- NOTE | 2021-09-01 13:34 | PM.PN ---
Subjective Subjective: Seen this morning. Patient is keeping the BiPAP mask on for now. He had dialysis yesterday. He gets a little short of breath when we take the BiPAP off. On BiPAP however he states comfortable. Blood pressure has come down very nicely. It has been okay since morning. I discussed with Dr. Ballard plan is to dialyze Mr. Gibbs again tomorrow. Vitals/I&O/Wt Last Vital Signs Temp 98.6 F 09/01/21 09:15 Pulse 81 09/01/21 13:19 Resp 19 H 09/01/21 12:15 BP 148/79 09/01/21 12:15 Pulse Ox 95 09/01/21 13:19 08/31/21 09/01/21 09/01/21 22:59 06:59 14:59 Intake Total 307.0 / 366.975 480 / 846.975 459.125 / 459.125 Output Total 4300 / 4300 0 / 4300 Balance -3993.0 / -3933.025 480 / -3453.025 459.125 / 459.125 Weight last 48 hrs Weight 80.91 kg Weight 78.8 kg Weight 113.398 kg Physical Exam Narrative: General: Pt on bipap, but awake. Answers appropriately. He states he just had breakfast. He says he is comfortable right now. HEENT: NC/ atraumatic, EOMI, on bipap Cardio: Normal S1-S2, no apparent murmurs Respiratory: Diminished bilateral air entry but clear to auscultation to all lung cantu including the bases today. GI: Abdomen soft, nontender, distended secondary to ascites, bowel sounds + Extremities:1+ pitting edema b/l Data : 08/31/21 09:39 08/31/21 09:39 A&P Assessment and plan (1) ESRD on dialysis: Status: Acute (2) COPD (chronic obstructive pulmonary disease): Status: Acute Qualifiers: COPD type: unspecified COPD Qualified Code(s): J44.9 - Chronic obstructive pulmonary disease, unspecified (3) Contusion of face: Status: Acute Qualifiers: Encounter type: initial encounter Qualified Code(s): S00.83XA - Contusion of other part of head, initial encounter (4) ARTEM (subconjunctival hemorrhage): Status: Acute Qualifiers: Laterality: left Qualified Code(s): H11.32 - Conjunctival hemorrhage, left eye (5) Anxiety: Status: Acute (6) Hypertensive emergency: Status: Acute (7) Pulmonary edema: Status: Acute Qualifiers: Chronicity: acute Qualified Code(s): J81.0 - Acute pulmonary edema (8) Acute on chronic respiratory failure with hypoxia and hypercapnia: Status: Acute (9) Hypertension: Status: Acute Plan #Hypertensive emergency #Acute on chronic respiratory failure with hypercarbia #Respiratory acidosis #End-stage renal disease dialysis dependent Thursday #Noncompliance to dialysis #Elevated troponin most likely demand ischemia -Patient was gently admitted to ICU and had 1 dialysis session. He was also on a nitroglycerin drip which was later discontinued. All at home medications for blood pressure have been reordered. ? Plan to dialyze again tomorrow. Patient continuing to require BiPAP at this time. ? White count slightly elevated. Stress leukocytosis versus real infection. I will check procalcitonin and a CT chest. Patient did have a pneumonia 3 weeks ago. I will hold off on starting antibiotics right now as he is afebrile. Will await for CAT scan before making any decisions. ? Continue BiPAP for now ? Check gas ? Echo performed 08/18/2021 showed stable small pericardial effusion. We will repeat an echo if clinically indicated. I do not believe that is needed right now. Continue to monitor in ICU. In case patient's respiratory status does deteriorate, we will intubate the patient. Full code Attestations Medical Necessity Statement*: Patient BiPAP dependent right now. Requires ICU level care. Plan for dialysis in a.m. Coding Level of Care Code Acute Certified Professional Ergonomist for [facility] Fwd Diagnoses ESRD on dialysis N18.6; Z99.2 COPD (chronic obstructive pulmonary disease) J44.9 COPD type: unspecified COPD Contusion of face S00.83XA Encounter type: initial encounter ARTEM (subconjunctival hemorrhage) H11.32 Laterality: left Anxiety F41.9 Hypertensive emergency I16.1 Pulmonary edema J81.0 Chronicity: acute Acute on chronic respiratory failure with hypoxia and hypercapnia J96.21; J96.22 Hypertension I10
[2021-09-01 13:35] LABS: Procalcitonin 2.28 ng/mL (0-0.5)
[2021-09-01 14:09] LABS: ABG PCO2 43.9 mmHg (35-45); ABG PH Result 7.43 (7.35-7.45); Alveolar-Arterial Oxygen Gradi 9.9 mmHg (5-10); Arterial Blood Gas Hematocrit 21.9 % (42-52); Base Excess ABG 4.2 mmol/L (-2.0-2.0); Blood Gas Allen Test Pos; Blood Gas Operator Identificat GD; Blood Gas Sample Site Radial, right; Blood Gas Sample Type Arterial; HGB O2 Sat 94.9 % (95-100); Ionized Calcium Level - ABG 1.2 mmol/L (1.1-1.4); Methemoglobin 0.9 % (0.4-1.5); Oxygen Device BIPAP; Oxygen Saturation ABG 97.8; PO2 ABG 82.7 mmHg (80.0-100.0); Potassium Level - ABG 4.6 mmol/L (3.5-5.0); Total Hemoglobin 7.1 g/dL (14-18)
[2021-09-01 14:29] LABS: Basophils % 0.6 %; Eosinophils # 0.3 10^3/uL (0.0-0.8); Eosinophils % 4.8 %; Hematocrit 23.4 % (42.0-52.0); Hemoglobin 7.1 g/dL (11.7-16.6); Lymphocytes # 0.5 10^3/uL (0.8-4.8); Lymphocytes % 9.5 %; Mean Corpuscular HGB Conc 30.3 g/dL (30.0-36.0); Mean Corpuscular Hemoglobin 29.6 pg (28.0-34.0); Mean Corpuscular Volume 97.5 fl (80-94); Mean Platelet Volume 9.3 fL (7.4-10.4); Monocytes # 0.6 10^3/uL (0.2-0.9); Monocytes % 11.2 %; Neutrophils # 3.81 10^3/uL (1.8-7.7); Neutrophils % 73.5 %; Nucleated Red Blood Cells % 0 %; Platelet Count 159 10^3/cmm (130-400); Red Cell Distribution Width 18.7 % (12.1-15.1); White Blood Count 5.2 10^3/uL (4.0-10.0)
[2021-09-01 14:48] LABS: Alanine Aminotransferase 9 U/L (0-41); Albumin Level 3.6 g/dL (3.5-5.2); Alkaline Phosphatase 123 IU/L (40-130); Anion Gap 17.7 (5-19); Aspartate Amino Transferase 12 U/L (0-40); Blood Urea Nitrogen 42 mg/dL (6-20); Calcium 8.2 mg/dL (8.5-10.5); Carbon Dioxide 25 mmol/L (22-29); Chloride 95 mmol/L (98-107); Globulin 2.6 g/dL (1.3-4.6); Glomerular Filtration Rate 9.6 mL/min (90-130); Glucose 102 mg/dL (65-115); Osmolality Calculated 287 mOsm/kg (285-295); Potassium 4.7 mmol/L (3.5-5.1); Sodium 133 mmol/L (136-145); Total Bilirubin 0.6 mg/dL (0.15-1.2); Total Protein 6.2 g/dL (6.6-8.7)
--- NOTE | 2021-09-01 17:02 | CTR_ITS ---
PROCEDURE INFORMATION: Exam: CT Head Without Contrast Exam date and time: 09/01/2021 5:34 PM Age: 41 years old Clinical indication: Pain; Headache; Post-traumatic; Patient HX: C/O continued BEJARANO from recent fall; Additional info: Headache/ previous head injury TECHNIQUE: Imaging protocol: Computed tomography of the head without contrast. Radiation optimization: All CT scans at this facility use at least one of these dose optimization techniques: automated exposure control; mA and/or kV adjustment per patient size (includes targeted exams where dose is matched to clinical indication); or iterative reconstruction. COMPARISON: CT Head 08/31/2021 1:14 AM RADIATION DOSE METRICS: Total DLP (mGy-cm): 874.13 FINDINGS: Brain: Focal, well-circumscribed hypodensity in the right inferior basal ganglia, suggestive of a dilated perivascular space. No CT evidence of acute intracranial hemorrhage or acute territorial infarction. No significant mass effect or midline shift. Basal cisterns patent. Cerebral ventricles: Normal in size and configuration. Paranasal sinuses: Unremarkable. No fluid levels. Mastoid air cells: Grossly unremarkable. Bones/joints: No acute osseous abnormality. Soft tissues: Grossly unremarkable. CT/CT head wo con* [id number]: 1. No CT evidence of acute intracranial pathology. 2. Additional findings, as above.
[2021-09-01] MEDS: ibuprofen 200 mg Tablet 400 MG PO (17:18)
[2021-09-01] MEDS: amlodipine 10 mg Tablet PO (20:21)
[2021-09-01] MEDS: atorvastatin 40 mg Tablet PO (20:21)
--- NOTE | 2021-09-01 21:41 | PC.NURSE ---
Pt c/o pain to left orbit and eye, at bedside stating pt was given eye gtts when seen in post injury. Call placed to Dr Nation notifying MD of pt c/o with no available PRNs and pt statement that pt was prescribed eye gtts on initial visit. MD states will review chart and place appropriate orders.
[2021-09-02] VITALS (48 sets, daily range): BP systolic 143–193; BP diastolic 74–119; PULSE 75–100; RESP 16–32; TEMP 36.2–37.1; O2SAT 90–100
--- NOTE | 2021-09-02 03:24 | PC.NURSE ---
pt c/o anxiety, requesting he received home dose of Klonopin and Seroquel. call to Dr Nation. new order received for clonazepam 1mg TID PRN anxiety. did not want to renew his seroquel at this time.
[2021-09-02] MEDS: CLONazepam 1 mg Tablet PO ×2 (03:51→16:10)
[2021-09-02 05:48] LABS: Basophils % 0.6 %; Eosinophils # 0.3 10^3/uL (0.0-0.8); Eosinophils % 6.3 %; Hematocrit 23.3 % (42.0-52.0); Hemoglobin 7.4 g/dL (11.7-16.6); Lymphocytes # 0.6 10^3/uL (0.8-4.8); Lymphocytes % 12.1 %; Mean Corpuscular HGB Conc 31.8 g/dL (30.0-36.0); Mean Corpuscular Hemoglobin 29.2 pg (28.0-34.0); Mean Corpuscular Volume 92.1 fl (80-94); Mean Platelet Volume 9.8 fL (7.4-10.4); Monocytes # 0.5 10^3/uL (0.2-0.9); Monocytes % 9.6 %; Neutrophils # 3.63 10^3/uL (1.8-7.7); Nucleated Red Blood Cells % 0 %; Platelet Count 179 10^3/cmm (130-400); Red Blood Count 2.53 10^6/uL (4.1-5.3); Red Cell Distribution Width 18.6 % (12.1-15.1); White Blood Count 5.1 10^3/uL (4.0-10.0)
[2021-09-02 06:09] LABS: Anion Gap 20.1 (5-19); Blood Urea Nitrogen 51 mg/dL (6-20); Calcium 8.5 mg/dL (8.5-10.5); Carbon Dioxide 26 mmol/L (22-29); Chloride 93 mmol/L (98-107); Glucose 89 mg/dL (65-115); Osmolality Calculated 291 mOsm/kg (285-295); Potassium 5.1 mmol/L (3.5-5.1); Sodium 134 mmol/L (136-145)
[2021-09-02] MEDS: nicotine 14 mg Patch 1 PATCH TRANSDERMA (08:17)
[2021-09-02] MEDS: pantoprazole 40 mg SDV IVP (08:17)
[2021-09-02] MEDS: clopidogrel 75 mg Tablet PO (08:18)
[2021-09-02] MEDS: aspirin 81 mg EC Tablet PO (08:18)
[2021-09-02] MEDS: sevelamer 800 mg Tablet 3200 MG PO ×2 (08:18→18:02)
[2021-09-02] MEDS: quetiapine 25 mg Tablet PO (08:18)
--- NOTE | 2021-09-02 09:07 | PC.CHAP ---
Pastoral Care Encounter/Spiritual Assessment Type of Contact [] Declined simulation educator visit [] Patient/Family/Request visit [] Outpatient visit [] Follow-up visit [] Physician referral [] Code/Alert [x] Routine visit [] Staff referral [] Actively dying [] Patient sleeping [] Family support [] [] Out of room [] Palliative care [] [] Receiving care in room [] Pre-surgical visit [] Trauma [] Long length of stay [x] ICU visit [x] Other: patient setting up in bed eating... Relational/Emotional Strength [] Patient feels connected with others/family/visitors/staff [] Distress [] Loneliness/isolation [] Abandonment Spirituality of Patient [] Person of Ct [] Attends Nondenominational of their Ct [] Believes in Prayer [] Reads Bible or Druze materials [] There are Spiritual issues to be addressed Stock Speculator Interventions [x] Prayer [] Active listening [] Non-anxious presence [] Spiritual/emotional support [] Crisis/trauma care [] Spiritual counseling [] Bereavement support [] Provided bereavement packet [] Provided Bible/devotional materials [] Provided toy/stuffed animal, coloring book to patient or family member [] Provided Communion [] Anointing/[place] [] Salvation [x] Completed spiritual assessment [] Other: Impact on Illness or Injury [] Angry [] Fearful [] Anxious [] Often cries [] Exhaustion [] Unable to work [] Unable to attend christian [] Unable to walk/stand [] Unable to read [] Unable to drive [] Unable to eat/drink [] Unable to sleep [] Unable to be with family [] Patient intubated [] Other: Summary Time spent with patient
--- NOTE | 2021-09-02 09:09 | P.PN_ITS ---
Subjective Subjective: Seen this am. Patient stated that his eye pain was better. No acute events overnight. He just finished eating his breakfast and reported he was slightly short of breath. he is looking forward to dialysis session today. BP stable range. Patient also underwent dialysis yesterday. Goal is 5L ultrafil trate today as per nephrology. He is requesting to wear bipap again. Saturating 94% on room air Vitals/I&O/Wt Last Vital Signs Temp 97.1 F L 09/02/21 00:00 Pulse 93 09/02/21 10:00 Resp 22 H 09/02/21 08:30 BP 164/105 09/02/21 10:00 Pulse Ox 96 09/02/21 10:00 09/01/21 09/02/21 09/02/21 22:59 06:59 14:59 Intake Total 1164 / 1623.125 480 / 2103.125 436 / 436 Output Total 0 / 0 0 / 0 Balance 1164 / 1623.125 480 / 2103.125 436 / 436 Weight last 48 hrs Weight 80.558 kg Weight 80.91 kg Weight 78.8 kg Physical Exam Narrative: General: Eating breakfast, appears slight short of breath. Saturating 94% on room air. HEENT: NC/ atraumatic, EOMI, left conjunctival hemorrhage present Cardio: Normal S1-S2, no apparent murmurs Respiratory: Clear to auscultation with coarse sounds at bases bilaterally. GI: Abdomen soft, nontender, slightly distended due to ascites, bowel sounds + Extremities:Trace to 1+ pitting edema b/l Data : 09/02/21 05:07 09/02/21 05:07 A&P Assessment and plan (1) ESRD on dialysis: Status: Acute (2) COPD (chronic obstructive pulmonary disease): Status: Acute Qualifiers: COPD type: unspecified COPD Qualified Code(s): J44.9 - Chronic obstructive pulmonary disease, unspecified (3) Anxiety: Status: Acute (4) ARTEM (subconjunctival hemorrhage): Status: Acute Qualifiers: Laterality: left Qualified Code(s): H11.32 - Conjunctival hemorrhage, left eye (5) Hypertensive emergency: Status: Acute (6) Pulmonary edema: Status: Acute Qualifiers: Chronicity: acute Qualified Code(s): J81.0 - Acute pulmonary edema (7) Acute on chronic respiratory failure with hypoxia and hypercapnia: Status: Acute (8) Hypertension: Status: Acute (9) Nicotine dependence, cigarettes, with other nicotine-induced disorders: Status: Acute (10) Hypertension: Status: Acute Plan #Hypertensive emergency #Acute on chronic respiratory failure with hypercarbia #Respiratory acidosis #End-stage renal disease dialysis dependent Thursday #Noncompliance to dialysis #Elevated troponin most likely demand ischemia -Patient was initially admitted to ICU and had 1 dialysis session.? He was also on a nitroglycerin drip which was later discontinued.? All at home medications for blood pressure have been reordered. Continue. - Plan for dialysis today afternoon. Will replace on bipap as he is still short of breath. ? CT chest similar to prior study. I dont believe he has a new pneumonia. He has been afebrile, denies a cough. ? Echo performed 08/18/2021 showed stable small pericardial effusion.? - Patient is slightly short of breath. Plan for dialysis again today. Hopefully he will clinically get better to where he can be sent home. Full Code Attestations Medical Necessity Statement*: Dialysis again today. Possible DC tomorrow pending clinical improvement. Coding Level of Care Code Acute Videotape Operator for [facility] Fwd Diagnoses ESRD on dialysis N18.6; Z99.2 COPD (chronic obstructive pulmonary disease) J44.9 COPD type: unspecified COPD Anxiety F41.9 ARTEM (subconjunctival hemorrhage) H11.32 Laterality: left Hypertensive emergency I16.1 Pulmonary edema J81.0 Chronicity: acute Acute on chronic respiratory failure with hypoxia and hypercapnia J96.21; J96.22 Hypertension I10 Nicotine dependence, cigarettes, with other nicotine-induced disorders F17.218 Hypertension I10
--- NOTE | 2021-09-02 09:30 | PM.PN ---
Subjective Subjective: When Mr. Gibbs comes off BiPAP he feels extremely tachypneic, uncomfortable. No other acute issues since yesterday. Blood pressure looks robust, blood pressure if anything is elevated. Some global mild edema. Vitals/I&O/Wt Last Vital Signs Temp 97.1 F L 09/02/21 00:00 Pulse 82 09/02/21 08:06 Resp 24 H 09/02/21 03:30 BP 178/115 09/02/21 07:30 Pulse Ox 90 09/02/21 08:06 09/01/21 09/02/21 09/02/21 22:59 06:59 14:59 Intake Total 1164 / 1623.125 480 / 2103.125 436 / 436 Output Total 0 / 0 0 / 0 Balance 1164 / 1623.125 480 / 2103.125 436 / 436 Weight last 48 hrs Weight 80.558 kg Weight 80.91 kg Weight 78.8 kg Physical Exam Narrative: Constitutional: Awake, comfortable, on BIPAP HEENT: Wet mucosa, no jvp, non icteric Lungs: Bilaterally clear without discernible wheeze, rales in all lung zones CVS: S1 S2, no murmurs Abdo: Soft, BS ok, distended Ext 4: Minimal edema, peripheral perfusion with no cyanosis Neurological: Grossly non-focal Data : 09/02/21 05:07 09/02/21 05:07 A&P Assessment and plan (1) ESRD on dialysis: Status: Acute Plan 1. ESRD HD today 2K bath, ultrafiltration 5L Daily eval for additional dialysis needs Dose medication for GFR less than 15 on dialysis 2. Shortness of breath Being treated for COPD and pulm edema, currently on BIPAP, hopefully UF will help 3. Hemodynamics Blood pressure elevated pre-dialysis, typical for him, should come down with UF No Bp goals for dialysis patients 4. Chronic ESRD issues To be handled as an outpatient as part of standard monthly management, continue outpatient home medication. Thank you for consultation, as always it is a pleasure to follow patients with you > 20 minutes spent in evaluation management of case with greater than 50% of time in [id number] counseling. Caden Salazar MD Nephrology [phone] Patient seen and examined via telemedicine, with the assistance of the bedside RN Attestations Medical Necessity Statement*: eval for ESRD Coding Level of Care Code Acute Office Technology Instructor for g Fwd Diagnoses ESRD on dialysis N18.6; Z99.2
[2021-09-02] MEDS: LORazepam 2 mg/mL INJ 1 mL 0.5 MG IVP (09:39)
[2021-09-02] MEDS: carvedilol 25 mg Tablet PO ×2 (14:37→21:42)
[2021-09-02] MEDS: minoxidil 10 mg Tablet PO ×2 (14:37→21:42)
[2021-09-02] MEDS: hyDRALAzine 50 mg Tablet PO ×2 (14:38→20:38)
[2021-09-02] MEDS: amlodipine 10 mg Tablet PO (19:29)
[2021-09-02] MEDS: atorvastatin 40 mg Tablet PO (20:38)
[2021-09-02] MEDS: LORazepam 2 mg/mL INJ 1 mL 0.25 MG IVP (20:38)
[2021-09-03] VITALS (28 sets, daily range): BP systolic 130–189; BP diastolic 68–111; PULSE 73–92; RESP 15–41; TEMP 36.6–36.7; O2SAT 95–100; BMI 23.3
[2021-09-03] MEDS: CLONazepam 1 mg Tablet PO ×2 (00:28→20:33)
[2021-09-03 03:58] LABS: Basophils % 0.5 %; Eosinophils # 0.2 10^3/uL (0.0-0.8); Eosinophils % 3.7 %; Hematocrit 22.9 % (42.0-52.0); Hemoglobin 7.1 g/dL (11.7-16.6); Lymphocytes # 0.5 10^3/uL (0.8-4.8); Lymphocytes % 8.1 %; Mean Corpuscular Hemoglobin 29.3 pg (28.0-34.0); Mean Corpuscular Volume 94.6 fl (80-94); Mean Platelet Volume 9.9 fL (7.4-10.4); Monocytes # 0.6 10^3/uL (0.2-0.9); Monocytes % 9.4 %; Neutrophils # 5.12 10^3/uL (1.8-7.7); Neutrophils % 77.8 %; Nucleated Red Blood Cells % 0 %; Platelet Count 197 10^3/cmm (130-400); Red Blood Count 2.42 10^6/uL (4.1-5.3); Red Cell Distribution Width 18.7 % (12.1-15.1); White Blood Count 6.6 10^3/uL (4.0-10.0)
[2021-09-03 04:28] LABS: Anion Gap 16.5 (5-19); Blood Urea Nitrogen 32 mg/dL (6-20); Calcium 9.3 mg/dL (8.5-10.5); Carbon Dioxide 27 mmol/L (22-29); Chloride 97 mmol/L (98-107); Glomerular Filtration Rate 12.1 mL/min (90-130); Glucose 95 mg/dL (65-115); Osmolality Calculated 289 mOsm/kg (285-295); Potassium 4.5 mmol/L (3.5-5.1); Sodium 136 mmol/L (136-145)
[2021-09-03 04:29] LABS: Creatinine Clr Calc Pharmacy 21.2172
[2021-09-03] MEDS: sevelamer 800 mg Tablet 3200 MG PO ×3 (07:57→17:03)
[2021-09-03] MEDS: quetiapine 25 mg Tablet PO (07:58)
[2021-09-03] MEDS: minoxidil 10 mg Tablet PO ×2 (07:58→17:03)
[2021-09-03] MEDS: pantoprazole 40 mg SDV IVP (07:58)
[2021-09-03] MEDS: aspirin 81 mg EC Tablet PO (07:58)
[2021-09-03] MEDS: hyDRALAzine 50 mg Tablet PO ×3 (07:58→20:31)
[2021-09-03] MEDS: carvedilol 25 mg Tablet PO ×2 (07:58→17:03)
[2021-09-03] MEDS: nicotine 14 mg Patch 1 PATCH TRANSDERMA (07:59)
[2021-09-03] MEDS: clopidogrel 75 mg Tablet PO (07:59)
--- NOTE | 2021-09-03 09:21 | PC.SOCIAL ---
IMM Update Pg. 2 of IMM Updated. Patient resting with bipap on, did not awake. Copy left at bedside.
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
[2021-09-03 12:51] LABS: INR 1.24 (0.8-1.2)
--- NOTE | 2021-09-03 13:30 | US_ITS ---
WS: [id number] Abdominal ultrasound, limited. History: Evaluate for ascites. Comparison: None. All 4 quadrants are imaged by ultrasound to evaluate for ascites. There is only very small amount of ascites throughout the abdomen. Not a significant amount in order for paracentesis to be beneficial. US/US abdomen lmt fluid [id number] IMPRESSION: Small amount of peritoneal ascites. No paracentesis performed.
--- NOTE | 2021-09-03 14:10 | CT_ITS ---
WS: [id number] CT ABDOMEN PELVIS TECHNIQUE: Noncontrast CT of the abdomen and pelvis with coronal and sagittal reformatted images. CLINICAL INFORMATION: distention COMPARISON: CT August 11, 2021 DLP: 1578.[address] scans at [facility] use at least one of these dose optimization techniques: automated e xposure control; mA and/or kV adjustment per patient size (includes targeted exams where dose is matc hed to clinical indication); or iterative reconstruction. FINDINGS: Marked hepatomegaly. Moderate pericardial effusion. Small RIGHT greater than LEFT pleural e ffusions. Compressive atelectasis in the lung bases. Slight hazy atelectasis in the lingula. Calcifie d granuloma RIGHT lower lobe. Gallbladder is contracted. Perihepatic and perisplenic ascites. Moderat e abdominal and pelvic ascites. No intrahepatic biliary duct dilatation. Normal caliber abdominal aor ta. Aortic calcification. Adrenal glands are normal. Bilateral renal atrophy. Noncontrast pancreas ap pears normal. Dense residual oral contrast in the sigmoid colon. Moderate pancolonic constipation. Fo od products in the stomach. Grade 1 anterolisthesis L5 on S1 with chronic spondylolysis. This is unchanged from previous. CT/CT abdomen pelvis wo con [id number] IMPRESSION: 1. Small RIGHT greater than LEFT pleural effusions with compressive atelectasi s in the lung bases. 2. Mild/moderate pericardial effusion. 3. Marked hepatomegaly unchanged from previous. 4. Perihepatic and perisplenic ascites. Moderate abdominal and pelvic ascites. 5. Moderate diffuse pancolonic constipation. Distended stomach with food produ cts. 6. No evidence of high-grade small or large bowel obstruction. 7. Grade 1 anterolisthesis L5 on S1 with chronic spondylolysis.
--- NOTE | 2021-09-03 16:41 | P.PN_ITS ---
Subjective Subjective: history obtained from . dyspnea persists Vitals/I&O/Wt Last Vital Signs Temp 98.1 F 09/03/21 08:24 Pulse 86 09/03/21 16:34 Resp 21 H 09/03/21 16:34 BP 186/98 09/03/21 14:11 Pulse Ox 95 09/03/21 13:37 09/03/21 09/03/21 09/03/21 06:59 14:59 22:59 Intake Total 444 / 1102 600 / 600 Balance 444 / -8898 600 / 600 Weight last 48 hrs Weight 80.195 kg Weight 80.558 kg Weight 79.5 kg Weight 80.558 kg Data : 09/03/21 03:16 09/03/21 03:16 CT Abd/Pel: Radiologist's impression: 1.?Small RIGHT greater than LEFT pleural effusions with compressive atelectasis in the lung bases. 2.? Mild/moderate pericardial effusion. 3.? Marked hepatomegaly unchanged from previous. 4.? Perihepatic and perisplenic ascites. Moderate abdominal and pelvic ascites. 5.? Moderate diffuse pancolonic constipation. Distended stomach with food products. 6.? No evidence of high-grade small or large bowel obstruction. 7.? Grade 1 anterolisthesis L5 on S1 with chronic spondylolysis. ? A&P Assessment and plan (1) COPD (chronic obstructive pulmonary disease): Status: Acute Qualifiers: COPD type: unspecified COPD Qualified Code(s): J44.9 - Chronic obstructive pulmonary disease, unspecified Plan 1. ESRD 2. Anemia 3. Hypertension Plan: HD tomorrow. 4L UF/4h. Consider transfusion pRBC. Check iron studies. Epogen at HD. Consider paracentesis. Can increase hydralazine, carvedilol and/or clonidine Attestations Medical Necessity Statement*: per primary service Time Spent in Patient Care: 16 - 35 minutes Other Attestations: visit performed via telemedicine with assitance of RN at [facility] Coding Level of Care Code Acute Manufacturing Analyst for Cristi Diane Diagnoses COPD (chronic obstructive pulmonary disease) J44.9 COPD type: unspecified COPD
[2021-09-03] MEDS: LORazepam 0.5 mg Tablet 0.25 MG PO (17:16)
[2021-09-03] MEDS: amlodipine 10 mg Tablet PO (19:27)
[2021-09-03] MEDS: atorvastatin 40 mg Tablet PO (20:31)
[2021-09-03] MEDS: morphine 4 mg/mL SDV 1 mL 2 MG IVP (22:36)
[2021-09-04] VITALS (71 sets, daily range): BP systolic 133–205; BP diastolic 69–125; PULSE 86–103; RESP 12–33; TEMP 36.7–37.3; O2SAT 83–100; BMI 24.8
[2021-09-04] MEDS: CLONazepam 1 mg Tablet PO (02:56)
[2021-09-04] MEDS: morphine IR 15 mg Tablet PO (03:35)
[2021-09-04] MEDS: minoxidil 10 mg Tablet PO ×2 (07:48→16:28)
[2021-09-04] MEDS: quetiapine 25 mg Tablet PO (07:48)
[2021-09-04] MEDS: carvedilol 25 mg Tablet PO ×2 (07:48→16:28)
[2021-09-04] MEDS: clopidogrel 75 mg Tablet PO (07:48)
[2021-09-04] MEDS: hyDRALAzine 50 mg Tablet PO ×3 (07:48→20:00)
[2021-09-04] MEDS: sevelamer 800 mg Tablet 3200 MG PO ×3 (07:48→16:28)
[2021-09-04] MEDS: nicotine 14 mg Patch 1 PATCH TRANSDERMA (07:49)
[2021-09-04] MEDS: pantoprazole 40 mg SDV IVP (07:49)
[2021-09-04] MEDS: aspirin 81 mg EC Tablet PO (07:49)
[2021-09-04] MEDS: azithromycin 500 MG in sodium chloride 0.9% 250 ML 250 MG IV (09:10)
[2021-09-04 09:27] LABS: Basophils % 0.7 %; Eosinophils # 0.4 10^3/uL (0.0-0.8); Eosinophils % 6.1 %; Hematocrit 23.3 % (42.0-52.0); Hemoglobin 7.3 g/dL (11.7-16.6); Lymphocytes # 0.7 10^3/uL (0.8-4.8); Lymphocytes % 11.2 %; Mean Corpuscular HGB Conc 31.3 g/dL (30.0-36.0); Mean Corpuscular Hemoglobin 29.1 pg (28.0-34.0); Mean Corpuscular Volume 92.8 fl (80-94); Mean Platelet Volume 9.6 fL (7.4-10.4); Monocytes # 0.5 10^3/uL (0.2-0.9); Monocytes % 7.8 %; Neutrophils # 4.33 10^3/uL (1.8-7.7); Neutrophils % 73.9 %; Nucleated Red Blood Cells % 0 %; Platelet Count 192 10^3/cmm (130-400); Red Blood Count 2.51 10^6/uL (4.1-5.3); Red Cell Distribution Width 18.4 % (12.1-15.1); White Blood Count 5.9 10^3/uL (4.0-10.0)
--- NOTE | 2021-09-04 09:30 | P.PN_ITS ---
Subjective Subjective: Seen this AM. Patient is lying in bed wearing BiPAP. He did drop on pulse ox overnight and was placed on oxygen none. He has been intermittently on room air and sometimes feels short of breath and therefore goes back on the BiPAP. We will transfuse 1 unit of blood today. He is to get dialyzed today. He states for the most part he is comfortable but did have a little bit of heartburn. Nursing staff reports that he has been drinking a lot of energy drinks and his family has been bringing him fast food. I found sodas energy drink at bedside. Paracentesis unable to be done yesterday. I spoke to radiologist. Patient ultimately declined to get tapped. Patient has also been having some anxiety for which he has received a few extra doses of Ativan. He has been taking a lot of caffeine. Vitals/I&O/Wt Last Vital Signs Temp 97.8 F 09/03/21 20:19 Pulse 90 09/04/21 08:10 Resp 18 09/04/21 08:10 BP 191/115 09/04/21 08:10 Pulse Ox 92 09/04/21 08:10 09/03/21 09/04/21 09/04/21 22:59 06:59 14:59 Intake Total 822 / 1422 222 / 1644 120 / 120 Balance 822 / 1422 222 / 1644 120 / 120 Weight last 48 hrs Weight 85.411 kg Weight 80.195 kg Weight 80.558 kg Weight 79.5 kg Physical Exam Narrative: General: Comfortable. Saturating 96% on bipap HEENT: NC/ atraumatic, EOMI, left conjunctival hemorrhage present Cardio: Normal S1-S2, no apparent murmurs, Respiratory: Clear to auscultation bilaterally. GI: Abdomen soft, nontender, mildly distended, ascites present,bowel sounds + Extremities:Trace to 1+ pitting edema b/l Data : 09/04/21 09:06 09/04/21 09:06 A&P Assessment and plan (1) ESRD on dialysis: Status: Acute (2) Anxiety: Status: Acute (3) ARTEM (subconjunctival hemorrhage): Status: Acute Qualifiers: Laterality: left Qualified Code(s): H11.32 - Conjunctival hemorrhage, left eye (4) COPD (chronic obstructive pulmonary disease): Status: Acute Qualifiers: COPD type: unspecified COPD Qualified Code(s): J44.9 - Chronic obstructive pulmonary disease, unspecified (5) Pulmonary edema: Status: Acute Qualifiers: Chronicity: acute Qualified Code(s): J81.0 - Acute pulmonary edema (6) Hypertensive emergency: Status: Acute (7) Acute on chronic respiratory failure with hypoxia and hypercapnia: Status: Acute (8) Nicotine dependence, cigarettes, with other nicotine-induced disorders: Status: Acute (9) S/P abdominal paracentesis: Status: Acute (10) Hypertension: Status: Acute Plan #Hypertensive emergency #Acute on chronic respiratory failure with hypercarbia #Respiratory acidosis #End-stage renal disease dialysis dependent Thursday #Noncompliance to dialysis #Elevated troponin most likely demand ischemia #History of CAD status post stent to OM1 #Mild pulmonary hypertension #History of RV dysfunction possible right-sided heart failure #DIstended abdomen, likely ascites #Noncompliance -Patient admitted to the ICU initially. He has been having dialysis since hospital stay. Total of 13 L of fluid has been removed so far. Patient has been on room air intermittently and has been requiring BiPAP intermittently as well. He has never dropped his oxygen saturations. He stated he just feels better when he has BiPAP on. ? Hemoglobin dropped to 7. Repeat hemoglobin 7.4. Again dropped to 7.1. We will transfuse 1 unit of blood timed with dialysis. - Plan for dialysis today. Patient will be sent home with BiPAP eventually. ? CT chest similar to prior study. CT abdomen does show moderate to large amount ascites. Patient declined to have paracentesis done. ? Echo performed 08/18/2021 showed stable small pericardial effusion.? -Due to patient's ongoing report of shortness of breath we will repeat an echo. I will check EKG and troponin. Delta Trope was negative on admission. Patient did not report any chest pain since admission however today said that he had little bit of pain overnight. -Patient will need pulmonary function test as outpatient and to see pulmonology. ? He is noncompliant to his diet. He has been drinking energy drinks and eating fast food during hospital stay. I have placed a restriction on outside food and drinks and placed him on a 1200 cc fluid restriction as well. ? I will talk to his today as well. -Hopefully patient can feel better and get closer to his baseline. Will dis charge pending clinical improvement. Full Code Prognosis is poor. Attestations Medical Necessity Statement*: >24 hr stay Coding Level of Care Code Acute Chemist Physical for Chg Fwd Diagnoses ESRD on dialysis N18.6; Z99.2 Anxiety F41.9 ARTEM (subconjunctival hemorrhage) H11.32 Laterality: left COPD (chronic obstructive pulmonary disease) J44.9 COPD type: unspecified COPD Pulmonary edema J81.0 Chronicity: acute Hypertensive emergency I16.1 Acute on chronic respiratory failure with hypoxia and hypercapnia J96.21; J96.22 Nicotine dependence, cigarettes, with other nicotine-induced disorders F17.218 S/P abdominal paracentesis Z98.890 Hypertension I10
[2021-09-04 09:51] LABS: Anion Gap 16.7 (5-19); Blood Urea Nitrogen 37 mg/dL (6-20); Calcium 9.5 mg/dL (8.5-10.5); Carbon Dioxide 26 mmol/L (22-29); Chloride 97 mmol/L (98-107); Glomerular Filtration Rate 11.2 mL/min (90-130); Glucose 85 mg/dL (65-115); Osmolality Calculated 288 mOsm/kg (285-295); Potassium 4.7 mmol/L (3.5-5.1); Sodium 135 mmol/L (136-145)
[2021-09-04] MEDS: LORazepam 0.5 mg Tablet 0.25 MG PO ×2 (10:15→20:17)
--- NOTE | 2021-09-04 10:28 | PC.CHAP ---
Pastoral Care Encounter/Spiritual Assessment Type of Contact [] Declined mud jack nozzleman visit [] Patient/Family/Request visit [] Outpatient visit [] Follow-up visit [] Physician referral [] Code/Alert [x] Routine visit [] Staff referral [] Actively dying [] Patient sleeping [] Family support [] [] Out of room [] Palliative care [] [] Receiving care in room [] Pre-surgical visit [] Trauma [] Long length of stay [x] ICU visit [x] Other: dialyses- oxygen Relational/Emotional Strength [] Patient feels connected with others/family/visitors/staff [] Distress [] Loneliness/isolation [] Abandonment Spirituality of Patient [] Person of Ct [] Attends Sabianist of their Ct [] Believes in Prayer [] Reads Bible or Scientologist materials [] There are Spiritual issues to be addressed Complaint Manager Interventions [x] Prayer [] Active listening [] Non-anxious presence [] Spiritual/emotional support [] Crisis/trauma care [] Spiritual counseling [] Bereavement support [] Provided bereavement packet [] Provided Bible/devotional materials [] Provided toy/stuffed animal, coloring book to patient or family member [] Provided Communion [] Anointing/Cranberry [] Salvation [x] Completed spiritual assessment [] Other: Impact on Illness or Injury [] Angry [] Fearful [] Anxious [] Often cries [] Exhaustion [] Unable to work [] Unable to attend zoroastrianism [] Unable to walk/stand [] Unable to read [] Unable to drive [] Unable to eat/drink [] Unable to sleep [] Unable to be with family [] Patient intubated [] Other: Summary Time spent with patient
--- NOTE | 2021-09-04 10:39 | PC.NURSE ---
Blood to be infused per HD nurse. Baseline VS charted. All other blood VS to be pulled over from monitor. HD nurse at bedside for infusion.
--- NOTE | 2021-09-04 10:41 | ECG_ITS ---
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 Measurements Intervals [place] Rate: 86 P: 66 KS: 214 QRS: 87 QRSD: 118 T: -83 QT: 402 QTc: 483 Interpretive Statements SINUS RHYTHM WITH FIRST DEGREE AV BLOCK POSSIBLE LEFT ATRIAL ENLARGEMENT [-0.1mV P-WAVE IN V1/V2] MODERATE INTRAVENTRICULAR CONDUCTION DELAY [110+ ms QRS DURATION] MODERATE T-WAVE ABNORMALITY, CONSIDER INFERIOR ISCHEMIA [-0.1+ mV T-WAVE IN II/aVF] Compared to ECG 08/31/2021 10:58:20 First degree AV block now present T-wave abnormality now present Possible ischemia now present Electronically Signed On 09-04-2021 19:59:33 CDT by Rosalia Dia M.D. [id number]
[2021-09-04] MEDS: sodium chloride 0.9% 250 ML 125 ML IV (10:44)
--- NOTE | 2021-09-04 10:44 | USCV_ITS ---
Mal Gibbs Age: 41 Gender: M : 1980 Exam Date: 09/04/2021 14:13 Ordering Phys: Brigitte Amin MD Technologist: SUSIE [place] [facility] [place]: evaluated pericardial effusion, RV and LV function. Patient on BIPAP in ICU-12, non- communicative. BP: 147 / 86 HR: 99 Rhythm: Sinus Technical Quality: Adequate MEASUREMENTS (Male / Female) Normal Values 2D ECHO LV Diastolic Diameter PLAX 5.3 cm 4.2 - 5.9 / 3.9 - 5.3 cm LV Systolic Diameter PLAX 3.2 cm IVS Diastolic Thickness 1.8 cm 0.6 - 1.0 / 0.6 - 0.9 cm IVS Systolic Thickness 2.5 cm LVPW Diastolic Thickness 1.9 cm 0.6 - 1.0 / 0.6 - 0.9 cm LVPW Systolic Thickness 2.6 cm LVOT Diameter 2.1 cm LV Ejection Fraction 2D Teich 70.8 % LV Ejection Fraction MOD 2C 59.4 % LV Ejection Fraction 2C AL 60.5 % LA Diameter 5.2 cm LA Width 5.7 cm LA Height 6.5 cm RA Width 5.9 cm RA Height 6.5 cm Aorta at Sinotubular Diameter 2.7 cm M-MODE Aortic Annulus Diameter 2.9 cm LA Ao Ratio MM 1.6 MV E Point Septal Separation 0.5 cm DOPPLER AV Peak Velocity 214.0 cm/s LVOT Peak Velocity 149.0 cm/s AV Area Cont Eq vti 2.6 cm squared AV Area Cont Eq pk 2.4 cm squared MV Peak Velocity 182.0 cm/s MV Area PHT 5.5 cm squared Mitral E to A Ratio 0.9 MV E' Velocity 80.0 cm/s Mitral E to MV E' Ratio 19.5 Mitral E to LV E' Lateral Ratio 19.3 Mitral E to LV E' Septal Ratio 20.0 TR Peak Velocity 280.8 cm/s TR Peak Gradient 31.5 mmHg TV Peak E Velocity 123.0 cm/s Right Atrial Pressure 15.0 mmHg Pulmonary Artery Systolic Pressu 46.5 mmHg PV Peak Velocity 177.0 cm/s FINDINGS Left Ventricle Normal left ventricular size. Moderate left ventricular hypertrophy. Normal left ventricular wall motion and function. Ejection fraction 60%. Grade 1 diastolic dysfunction. Right Ventricle Normal right ventricular size and systolic function. Mild pulmonary hypertension, RVSP 46.5 mmHg. Right Atrium Moderately increased right atrial size. Increased right atrial pressure about 10 mmHg. Left Atrium Moderately increased left atrial size. Mitral Valve Structurally normal mitral valve. Trace mitral valve regurgitation. Aortic Valve Structurally normal aortic valve without significant sclerosis or stenosis. There is no aortic regurgitation. Tricuspid Valve Structurally normal tricuspid valve. Mild tricuspid valve regurgitation. Pulmonic Valve Pulmonic valve not well visualized. Pericardium There is a small nonhemodynamically significant pericardial effusion most prominent in the posterior region. There is a large pleural effusion. Aorta Normal ascending aorta dimension. CONCLUSIONS Normal left ventricular size. Moderate left ventricular hypertrophy. Normal left ventricular wall motion and function. Ejection fraction 60%. Grade 1 diastolic dysfunction. Normal right ventricular size and systolic function. Mild pulmonary hypertension, RVSP 46.5 mmHg. Moderately increased right atrial size. Increased right atrial pressure about 10 mmHg. Moderately increased left atrial size. Structurally normal mitral valve. Trace mitral valve regurgitation. There is a small nonhemodynamically significant pericardial effusion most prominent in the posterior region. There is a large pleural effusion. Dr. Bharathi Markham MD (Electronically Signed) Final Date: 04 Sep 2021 17:40 S
[2021-09-04 12:06] LABS: Troponin T (5th) Once 71 ng/L (0-15)
[2021-09-04] MEDS: hyDRALAzine 20 mg/mL INJ 1 mL 10 MG IVP (12:55)
--- NOTE | 2021-09-04 16:03 | PM.PN ---
Subjective Subjective: HD today 3900 UF Medications: Reviewed: Yes Vitals/I&O/Wt Last Vital Signs Temp 98.3 F 09/04/21 13:15 Pulse 99 09/04/21 14:23 Resp 20 H 09/04/21 14:00 BP 147/86 09/04/21 14:00 Pulse Ox 93 09/04/21 14:23 09/04/21 09/04/21 09/04/21 06:59 14:59 22:59 Intake Total 222 / 1644 1012.083 / 1012.083 Output Total 3930 / 3930 Balance 222 / 1644 -2917.917 / -2917.917 Weight last 48 hrs Weight 85.411 kg Weight 80.195 kg Data : 09/04/21 09:06 09/04/21 09:06 A&P Assessment and plan (1) Fluid overload: Status: Acute Plan 1. ESRD, HD today 2. Anemia, received transfusion 1 unit pRBC today 3. Hypertension Plan: Continue HD 3x weekly. No IVs, BPs, blood draws left arm Attestations Medical Necessity Statement*: per primary service Time Spent in Patient Care: 16 - 35 minutes Coding Level of Care Code Acute Type Bar And Segment Assembler for Chg Fwd Diagnoses Fluid overload E87.70
--- NOTE | 2021-09-04 17:44 | XRR_ITS ---
PROCEDURE INFORMATION: Exam: XR Chest Exam date and time: 09/04/2021 5:51 PM Age: 41 years old Clinical indication: Shortness of breath; Additional info: Assess pleural effusion TECHNIQUE: Imaging protocol: XR of the chest. Views: 1 view. COMPARISON: CT chest con [id number] 09/01/2021 1:31 PM FINDINGS: Lungs: Left upper lobe and bilateral lower lobe opacities are again seen, which may be atelectasis and/or pneumonia. A calcified granuloma is present in the right lower lobe. Pleural spaces: A small left pleural effusion is present. No pneumothorax is seen. Heart/Mediastinum: The heart is mildly enlarged. Bones/joints: Unremarkable. XR/XR chest 1V portable [id number] IMPRESSION: 1. Left upper lobe and bilateral lower lobe atelectasis and/or pneumonia. A small left pleural effusion is also noted. 2. Mild cardiomegaly.
[2021-09-04] MEDS: cefTRIAXone 1,000 MG in sodium chloride 0.9% (plus) 50 ML 100 MG IV (18:31)
[2021-09-04] MEDS: atorvastatin 40 mg Tablet PO (20:00)
[2021-09-04] MEDS: amlodipine 10 mg Tablet PO (20:00)
[2021-09-05] VITALS (95 sets, daily range): BP systolic 133–207; BP diastolic 70–124; PULSE 79–99; RESP 0–26; TEMP 36.4–37.1; O2SAT 87–100
[2021-09-05 05:50] LABS: Basophils % 0.3 %; Hematocrit 26.7 % (42.0-52.0); Hemoglobin 8.2 g/dL (11.7-16.6); Lymphocytes # 0.4 10^3/uL (0.8-4.8); Lymphocytes % 6.3 %; Mean Corpuscular HGB Conc 30.7 g/dL (30.0-36.0); Mean Corpuscular Hemoglobin 29.4 pg (28.0-34.0); Mean Corpuscular Volume 95.7 fl (80-94); Mean Platelet Volume 9.8 fL (7.4-10.4); Monocytes # 0.7 10^3/uL (0.2-0.9); Monocytes % 10.9 %; Neutrophils # 5.19 10^3/uL (1.8-7.7); Neutrophils % 82.3 %; Nucleated Red Blood Cells % 0 %; Platelet Count 194 10^3/cmm (130-400); Red Blood Count 2.79 10^6/uL (4.1-5.3); Red Cell Distribution Width 18.1 % (12.1-15.1); White Blood Count 6.3 10^3/uL (4.0-10.0)
[2021-09-05 06:10] LABS: INR 1.29 (0.8-1.2)
[2021-09-05 06:11] LABS: Partial Thromboplastin Time 41.4 SECONDS (23.9-36.7)
[2021-09-05 06:15] LABS: Anion Gap 19.4 (5-19); Blood Urea Nitrogen 39 mg/dL (6-20); Calcium 9.8 mg/dL (8.5-10.5); Carbon Dioxide 24 mmol/L (22-29); Chloride 96 mmol/L (98-107); Glomerular Filtration Rate 11.4 mL/min (90-130); Glucose 99 mg/dL (65-115); Osmolality Calculated 287 mOsm/kg (285-295); Potassium 5.4 mmol/L (3.5-5.1); Sodium 134 mmol/L (136-145)
[2021-09-05 06:20] LABS: Fibrinogen 490 mg/dL (174-498)
[2021-09-05 06:22] LABS: Platelet Count 194 10^3/cmm (130-400)
[2021-09-05] MEDS: sevelamer 800 mg Tablet 3200 MG PO ×3 (07:58→17:09)
[2021-09-05] MEDS: pantoprazole 40 mg SDV IVP (07:58)
[2021-09-05] MEDS: aspirin 81 mg EC Tablet PO (07:59)
[2021-09-05] MEDS: carvedilol 25 mg Tablet PO ×2 (07:59→17:09)
[2021-09-05] MEDS: clopidogrel 75 mg Tablet PO (07:59)
[2021-09-05] MEDS: quetiapine 25 mg Tablet PO (07:59)
[2021-09-05] MEDS: minoxidil 10 mg Tablet PO ×2 (07:59→17:09)
[2021-09-05] MEDS: hyDRALAzine 50 mg Tablet PO (07:59)
[2021-09-05] MEDS: azithromycin 500 MG in sodium chloride 0.9% 250 ML 250 MG IV (07:59)
[2021-09-05] MEDS: nicotine 14 mg Patch 1 PATCH TRANSDERMA (08:00)
--- NOTE | 2021-09-05 08:55 | PC.SOCIAL ---
IMM Updated Updated pt on IMM. No questions voiced. Provided pt a copy. Initialed, dated & timed copy in chart.
--- NOTE | 2021-09-05 09:19 | PC.NURSE ---
baseline blood vs in tar, all other vs to be pulled over automatically. VSS.
[2021-09-05] MEDS: sodium chloride 0.9% 250 ML 125 ML IV (09:20)
--- NOTE | 2021-09-05 09:24 | PM.PN ---
Subjective Subjective: remains short of breath when not using BiPAP Vitals/I&O/Wt Last Vital Signs Temp 97.6 F 09/05/21 09:07 Pulse 85 09/05/21 09:07 Resp 26 H 09/05/21 09:07 BP 157/98 09/05/21 09:07 Pulse Ox 96 09/05/21 09:07 09/04/21 09/05/21 09/05/21 22:59 06:59 14:59 Intake Total 290 / 1302.083 456 / 1758.083 490 / 490 Output Total 0 / 3930 Balance 290 / -2627.917 456 / -2171.917 490 / 490 Weight last 48 hrs Weight 84.459 kg Weight 85.411 kg Data : 09/05/21 04:13 09/05/21 04:13 A&P Assessment and plan (1) ESRD on dialysis: Status: Acute Plan Seen via telemedicine with assistance of RN at bedside Assessment and plan (1) Fluid overload (2) Symptomatic anemia (3) ESRD (4) Hypertension. I do not know why he is not on ACEi or ARB. Recommend adding. If ACEi or ARB are contraindicated, increase carvedilol Plan 2 h UF 2L fluid removal today Will receive additional transfusion 1 unit pRBC today No IVs, BPs, blood draws left arm Attestations Medical Necessity Statement*: see above Time Spent in Patient Care: 16 - 35 minutes Coding Level of Care Code Acute Armored Vehicle Officer for Cristi Diane Diagnoses ESRD on dialysis N18.6; Z99.2
[2021-09-05] MEDS: hyDRALAzine 20 mg/mL INJ 1 mL 10 MG IVP (11:25)
--- NOTE | 2021-09-05 11:39 | P.PN_ITS ---
Subjective Subjective: Seen this morning. Patient has BiPAP on again. He states he is no longer short of breath and feels better however not back to baseline. Hemoglobin 8.2 status post 1 unit today. 1 more unit has been ordered. Plan for dialysis today 2 L. His blood pressure has been elevated at different times. He required IV hydralazine 10 mg yesterday x1. He was also planned to start on a very strict fluid restriction along with no outside food or drinks allowed. Adjustments to his home medications have been done today. Vitals/I&O/Wt Last Vital Signs Temp 97.6 F 09/05/21 09:07 Pulse 88 09/05/21 11:00 Resp 10 L 09/05/21 09:45 BP 168/103 09/05/21 10:00 Pulse Ox 94 09/05/21 11:00 09/04/21 09/05/21 09/05/21 22:59 06:59 14:59 Intake Total 290 / 1302.083 456 / 1758.083 490 / 490 Output Total 0 / 3930 Balance 290 / -2627.917 456 / -2171.917 490 / 490 Weight last 48 hrs Weight 84.459 kg Weight 85.411 kg Physical Exam Narrative: General: Comfortable. Saturating 96% on bipap HEENT: NC/ atraumatic, EOMI, left conjunctival hemorrhage present Cardio: Normal S1-S2, no apparent murmurs, Respiratory: Clear to auscultation bilaterally. GI: Abdomen soft, nontender, mildly distended, ascites present,bowel sounds + Extremities:Trace to 1+ pitting edema b/l Data : 09/05/21 04:13 09/05/21 04:13 A&P Assessment and plan (1) Fluid overload: Status: Acute (2) COPD (chronic obstructive pulmonary disease): Status: Acute Qualifiers: COPD type: unspecified COPD Qualified Code(s): J44.9 - Chronic obstructive pulmonary disease, unspecified (3) Pulmonary edema: Status: Acute Qualifiers: Chronicity: acute Qualified Code(s): J81.0 - Acute pulmonary edema (4) Acute on chronic respiratory failure with hypoxia and hypercapnia: Status: Acute (5) Hypertensive emergency: Status: Acute (6) Hypertension: Status: Acute (7) Lumbar back pain: Status: Acute (8) Low back pain: Status: Acute (9) Nicotine dependence, cigarettes, with other nicotine-induced disorders: Status: Acute (10) S/P abdominal paracentesis: Status: Acute (11) Atherosclerosis of coronary artery: Status: Acute (12) Hypertension: Status: Acute Plan #Hypertensive emergency #Acute on chronic respiratory failure with hypercarbia #Respiratory acidosis #End-stage renal disease dialysis dependent Thursday #Noncompliance to dialysis #Elevated troponin most likely demand ischemia #History of CAD status post stent to OM1 #Mild pulmonary hypertension #History of RV dysfunction possible right-sided heart failure #DIstended abdomen, likely ascites #Noncompliance -Patient admitted to the ICU initially.? He has been having dialysis since hospital stay.? Total of 13 L of fluid has been removed so far.? Patient has been on room air intermittently and has been requiring BiPAP intermittently as well.? He has never dropped his oxygen saturations.? He stated he just feels better when he has BiPAP on. ? Hemoglobin dropped to 8.3 today. He is status post 1 unit. Order 1 more unit packed RBC today. Hemoglobin goal should be 9 given his history of CAD. - Plan for dialysis today.? Patient will be sent home with BiPAP eventually. ? CT chest similar to prior study.? CT abdomen does show moderate to large amount ascites.? Patient declined to have paracentesis done. ? Echo performed 08/18/2021 showed stable small pericardial effusion.? ??He is noncompliant to his diet.? He has been drinking energy drinks and eating fast food during hospital stay.??I have placed a restriction on outside food and drinks and placed him on a 1200 cc fluid restriction as well. ? Discussed with his yesterday regarding fluid restriction and she agreed. ? Dialysis to take place today 2 L ultrafiltration goal. -Pulmonology consulted. Patient had an appointment today with pulm outpatient. Due to dialysis and blood transfusion he cannot be discharged today. Pulmonology will see him as an inpatient. He will most likely need PFTs which will be done as an outpatient. Will await further recommendations. -Blood pressure medications have been adjusted. Clonidine patch dose has been increased and Coreg dose has been increased as well. -Hopefully patient can feel better and get closer to his baseline.? Will discharge pending clinical improvement. Full Code Attestations Medical Necessity Statement*: Requires blood transfusion. 24 to 48-hour stay expected. Coding Level of Care Code Acute Protective Services Case Worker for Chg Fwd Diagnoses Fluid overload E87.70 COPD (chronic obstructive pulmonary disease) J44.9 COPD type: unspecified COPD Pulmonary edema J81.0 Chronicity: acute Acute on chronic respiratory failure with hypoxia and hypercapnia J96.21; J96.22 Hypertensive emergency I16.1 Hypertension I10 Lumbar back pain M54.50 Low back pain M54.50 Nicotine dependence, cigarettes, with other nicotine-induced disorders F17.218 S/P abdominal paracentesis Z98.890 Atherosclerosis of coronary artery I25.10 Hypertension I10
[2021-09-05] MEDS: LORazepam 0.5 mg Tablet 0.25 MG PO (11:51)
[2021-09-05] MEDS: heparin 5,000 unit/mL INJ 1 mL 5000 UNIT SUBCUT (12:17)
[2021-09-05] MEDS: cloNIDine 0.2 mg/24 hr Patch 1 PATCH TRANSDERMA (12:53)
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
[2021-09-05] MEDS: hyDRALAzine 50 mg Tablet 75 MG PO ×2 (14:39→20:59)
[2021-09-05] MEDS: cefTRIAXone 1,000 MG in sodium chloride 0.9% (plus) 50 ML 100 MG IV (17:10)
[2021-09-05 17:21] LABS: Ferritin 716 ng/mL (30-400); Iron 31 ug/dL (59-158); Percent Saturation 13.9 % (20-50); Total Iron Binding Capacity 223 mcg/dl; Unsaturated Iron Binding 192 ug/dL (112-347)
[2021-09-05] MEDS: amlodipine 10 mg Tablet PO (19:14)
[2021-09-05] MEDS: CLONazepam 1 mg Tablet PO (19:16)
[2021-09-05] MEDS: atorvastatin 40 mg Tablet PO (20:59)
[2021-09-06] VITALS (49 sets, daily range): BP systolic 113–177; BP diastolic 51–94; PULSE 71–93; RESP 1–29; TEMP 36.6–37.1; O2SAT 60–100
[2021-09-06] MEDS: heparin 5,000 unit/mL INJ 1 mL 5000 UNIT SUBCUT ×2 (00:03→11:14)
[2021-09-06 04:35] LABS: Basophils % 0.2 %; Hematocrit 26.6 % (42.0-52.0); Hemoglobin 8.5 g/dL (11.7-16.6); Lymphocytes # 0.6 10^3/uL (0.8-4.8); Lymphocytes % 9.8 %; Mean Corpuscular Hemoglobin 28.9 pg (28.0-34.0); Mean Corpuscular Volume 90.5 fl (80-94); Monocytes # 0.5 10^3/uL (0.2-0.9); Neutrophils # 4.66 10^3/uL (1.8-7.7); Neutrophils % 80.5 %; Nucleated Red Blood Cells % 0 %; Platelet Count 205 10^3/cmm (130-400); Red Blood Count 2.94 10^6/uL (4.1-5.3); Red Cell Distribution Width 18.9 % (12.1-15.1); White Blood Count 5.8 10^3/uL (4.0-10.0)
[2021-09-06 04:57] LABS: Anion Gap 18.2 (5-19); Blood Urea Nitrogen 55 mg/dL (6-20); Calcium 9.8 mg/dL (8.5-10.5); Carbon Dioxide 27 mmol/L (22-29); Chloride 94 mmol/L (98-107); Glomerular Filtration Rate 8.8 mL/min (90-130); Glucose 101 mg/dL (65-115); Magnesium 2.4 mg/dL (1.7-2.3); Osmolality Calculated 293 mOsm/kg (285-295); Potassium 5.2 mmol/L (3.5-5.1); Sodium 134 mmol/L (136-145)
[2021-09-06 05:06] LABS: Cortisol Random 2.46 ug/dL (2.47-19.5)
--- NOTE | 2021-09-06 06:50 | PC.NURSE ---
Bedside report completed with Umu Trinh RN.
--- NOTE | 2021-09-06 08:00 | USCV_ITS ---
Mal Gibbs Age: 41 Gender: M : 1980 Exam Date: 09/06/2021 07:16 Ordering Phys: Brigitte Amin MD Technologist: Grabiel Camacho Exam Location: [facility] [place]_ Indication: ? renal stenosis Aortic Velocity @ SMA (cm/s) RIGHT KIDNEY LEFT KIDNEY 61.5 Kidney Length (mm) 60.9 FINDINGS small strophied kidneys bilat unable to get doppler signals in aorta , renal arts, or kidneys due to pt condition CONCLUSIONS Atrophic kidneys bilaterally. Unable to obtain doppler signal in renal arteries, aorta, or kidneys due to patient condition Right kidney measures 6.4 x 2.8 x 4.3cm Left kidney measures 6.0 x 3.0 x 2.9cm Perihepatic ascites Saurabh Leslie MD (Electronically Signed) Final Date: 06 Sep 2021 16:24 S
--- NOTE | 2021-09-06 08:20 | PC.NURSE ---
Pt quarrelsome. He stated he was going to leave today. He refused paracentisis stated he know when he needs it. . He did not want to discuss plan, probable discharge today after paracentisis and hemodialysis today, He stated I have been hearing discharge today for days. I do not want to hear it anymore. I AM going home today After pt's outburst explained the paracentisiis was to help him breath, it would let his diaphragm work , the fluid os pushing up on it. Pt relented and agreed to paracentisis.
[2021-09-06] MEDS: quetiapine 25 mg Tablet PO (08:40)
[2021-09-06] MEDS: LORazepam 0.5 mg Tablet 0.25 MG PO (08:41)
[2021-09-06] MEDS: hyDRALAzine 50 mg Tablet 75 MG PO ×2 (08:42→15:16)
[2021-09-06] MEDS: predniSONE 20 mg Tablet PO (08:42)
[2021-09-06] MEDS: aspirin 81 mg EC Tablet PO (08:42)
[2021-09-06] MEDS: minoxidil 10 mg Tablet PO (08:42)
[2021-09-06] MEDS: carvedilol 25 mg Tablet PO (08:42)
[2021-09-06] MEDS: clopidogrel 75 mg Tablet PO (08:43)
[2021-09-06] MEDS: azithromycin 500 MG in sodium chloride 0.9% 250 ML 250 MG IV (08:43)
[2021-09-06] MEDS: pantoprazole 40 mg SDV IVP (08:44)
--- NOTE | 2021-09-06 08:54 | PM.PN ---
Subjective Subjective: now on 3L NC. will be discharged home after HD today. BiPAP will be delivered to his home Medications: Reviewed: Yes Vitals/I&O/Wt Last Vital Signs Temp 98.2 F 09/06/21 06:15 Pulse 83 09/06/21 06:20 Resp 17 09/06/21 06:15 BP 136/77 09/06/21 06:15 Pulse Ox 94 09/06/21 06:20 09/05/21 09/06/21 09/06/21 22:59 06:59 14:59 Intake Total 290 / 1420 60 / 1480 Output Total 4007 / 4007 Balance -3717 / -2587 60 / -2527 Weight last 48 hrs Weight 83.092 kg Weight 82 kg Weight 84.459 kg Weight 82.7 kg Physical Exam Extremity: NARRATIVE EXTREMITY EXAM: LUE AVF no signs of infection Data : 09/06/21 04:02 09/06/21 04:02 Other Labs: TSAT 14% A&P Assessment and plan (1) ESRD on dialysis: Status: Acute Plan Seen via telemedicine with assistance of RN at bedside Assessment and plan (1) Fluid overload (2) Anemia (3) ESRD Plan 24h HD 4.5L fluid removal today, 2K bath. Epogen at dialysis, IV venofer No IVs, BPs, blood draws left arm If discharged, will return to his outpatient HD unit on Thursday Attestations Medical Necessity Statement*: per primary service Time Spent in Patient Care: 16 - 35 minutes Coding Level of Care Code Acute Solid Waste Collector for Cristi Diane Diagnoses ESRD on dialysis N18.6; Z99.2
[2021-09-06] MEDS: nicotine 14 mg Patch 1 PATCH TRANSDERMA (09:35)
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
[2021-09-06] MEDS: sevelamer 800 mg Tablet 3200 MG PO (10:42)
[2021-09-06] MEDS: iron sucrose 200 MG in sodium chloride 0.9% (100 ml) 100 ML 220 MG IV (10:43)
--- NOTE | 2021-09-06 10:45 | PC.NURSE ---
Clonidine patch removed after paracentisis. SBP 106. Will continue to monitor.
[2021-09-06] MEDS: sodium chloride 0.9% 250 ML IV (11:14)
[2021-09-06 11:29] LABS: Peritoneal Fluid Spec Gravity 1.015
--- NOTE | 2021-09-06 12:00 | US_ITS ---
WS: [id number] ULTRASOUND-GUIDED THERAPEUTIC AND DIAGNOSTIC PARACENTESIS Procedure, risks, and complications have been explained to the patient. Consent is obtained. Utilizing aseptic technique and 1% buffered lidocaine, a small dermatome was made through which a 5 F rench Yueh catheter was inserted. Approximately 4500 ml of dark yellow peritoneal fluid was obtained without difficulty. No complications encountered. Peritoneal fluid collected for analysis as requeste d. US/US paracentesis abd w [id number] IMPRESSION: Uncomplicated paracentesis yielding 4500 ml of peritoneal fluid.
--- NOTE | 2021-09-06 12:10 | PC.NURSE ---
Paracentisis completed. 5200ml of dark yellow fluid noted in canisters.
[2021-09-06 12:12] LABS: Albumin Peritoneal Fluid 2.4 g/dL; Triglycerides,Peritoneal Fluid 23 mg/dL
[2021-09-06 12:13] LABS: Amylase Peritoneal Fluid 12 U/L (88-109)
--- NOTE | 2021-09-06 15:00 | PC.NURSE ---
Hemodialysis completed. 4500 ml removed.
[2021-09-06] MEDS: epoetin alfa 10,000 unit/mL INJ 10000 UNIT IVP (15:17)
--- NOTE | 2021-09-06 16:48 | PC.NURSE ---
Discharge instructions provided. Pt nor wanted to review [place]. Both verbalized understanding of limit caffeine, refrain from fast food and energy drink, 3lpm/NC day time and CPAP at night, and to take B/P daily and follow-up with primary physician. Both patient and verbalized understanding of foolw-up appt with Dr Perez scheduled and to call Thursday to make appt with Dr Harden and Dr Cruz.
--- NOTE | 2021-09-06 17:28 | PC.SOCIAL ---
Spriva is not covered under insurance. Substitution permitted per verbal order from Dr Amin for Incruse Ellipta 62.5 mcg once daily. One month supply. Notified [facility] pharmacy and they verified this is the preferred drug.
[2021-09-10 17:37] LABS: Plasma Renin Activity LC/MS/MS 1.97 ng/mL/h (0.25-5.82)
[2021-09-12 15:43] LABS: Metanephrine Total Free 179 pg/mL (<=205)
== END 2021-09-06 16:48 | disposition home or self-care (01) | DRG 291 ==
LOC: ER 10:55 → ICU 11:07
PROVIDERS: Internal Medicine; Admitting Provider Internal Medicine; Emergency Provider Emergency Medicine; PCP Family Medicine; Visit Provider Internal Medicine
DX: I13.2 Hypertensive heart and chronic kidney disease with heart failure and with stage 5 chronic kidney disease, or end stage renal disease (principal); J96.22 Acute and chronic respiratory failure with hypercapnia; J96.21 Acute and chronic respiratory failure with hypoxia; N18.6 End stage renal disease; I16.1 Hypertensive emergency; R18.8 Other ascites; I24.8 Other forms of acute ischemic heart disease; E87.2 Acidosis; I50.32 Chronic diastolic (congestive) heart failure; Z99.2 Dependence on renal dialysis; Z91.15 Patient's noncompliance with renal dialysis; F41.8 Other specified anxiety disorders; D63.1 Anemia in chronic kidney disease; I25.10 Atherosclerotic heart disease of native coronary artery without angina pectoris; Z95.5 Presence of coronary angioplasty implant and graft; J44.9 Chronic obstructive pulmonary disease, unspecified; Z86.16 Personal history of COVID-19; M51.36 Other intervertebral disc degeneration, lumbar region; F17.210 Nicotine dependence, cigarettes, uncomplicated; Z86.711 Personal history of pulmonary embolism; H11.32 Conjunctival hemorrhage, left eye; Z79.02 Long term (current) use of antithrombotics/antiplatelets; Z79.82 Long term (current) use of aspirin; Z79.51 Long term (current) use of inhaled steroids; I27.20 Pulmonary hypertension, unspecified; S00.83XA Contusion of other part of head, initial encounter; V49.9XXA Car occupant (driver) (passenger) injured in unspecified traffic accident, initial encounter
CPT/HCPCS: 36415; 36430; 36600; 49083; 70450; 70486; 71045; 71046; 71101; 71250; 72125; 73130; 73552; 73562; 74176; 76705; 80048; 80051; 80053; 82042; 82088; 82150; 82330; 82533; 82728; 82803; 82805; 83540; 83550; 83615; 83735; 83835; 83880; 83986; 84145; 84157; 84244; 84315; 84478; 84484; 85025; 85049; 85384; 85610; 85730; 86850; 86900; 86920; 87070; 87075; 87205; 90935; 93005; 93306; 93975; 94640; 94660; 94664; 96365; 96366; 96367; 96372; 96374; 96375; 97116; 97161; 99283; 99284; 99291; C9113; J0360; J0456; J0610; J0696; J1644; J1756; J2060; J2270; J2405; J2920; J3490; J7050; J7512; J7611; P9016; Q3014; Q4081

== ENCOUNTER → 2021-09-12 11:50 | Outpatient (BNVA) | payer MEDICARE, MEDICAID, SELFPAY | PROVIDERS: PCP Family Medicine; Visit Provider Internal Medicine Pulmonary Disease | DX: J44.9 Chronic obstructive pulmonary disease, unspecified (principal); I10 Essential (primary) hypertension; N18.6 End stage renal disease; R06.00 Dyspnea, unspecified; R18.8 Other ascites; Z09 Encounter for follow-up examination after completed treatment for conditions other than malignant neoplasm; Z99.2 Dependence on renal dialysis; F17.210 Nicotine dependence, cigarettes, uncomplicated | CPT/HCPCS: 99214 ==

== ENCOUNTER 2021-10-03 11:15 | Day surgery (SDC) | payer MEDICARE, MEDICAID, SELFPAY ==
--- NOTE | 2021-10-03 11:27 | US_ITS ---
WS: [id number] ULTRASOUND-GUIDED PARACENTESIS CLINICAL INFORMATION: Ascites COMPARISON: None. Small amount of ascites is visualized. Insufficient fluid to safely perform paracentesis. US/US abdomen lmt fluid [id number] IMPRESSION: Insufficient fluid for paracentesis
[2021-10-03 11:49] VITALS: BP 127/72; PULSE 77; RESP 18; TEMP 36.8; O2SAT 99
--- NOTE | 2021-10-03 12:32 | SUR.OPER ---
ultrasound performed and noted not enough intraperitoneal fluid to preform procedure.
== END 2021-10-03 12:15 | disposition home or self-care (01) ==
LOC: GILAB 11:20
PROVIDERS: Radiology Neuroradiology; PCP Family Medicine; Visit Provider Internal Medicine Nephrology
DX: R18.8 Other ascites (principal)
CPT/HCPCS: 76705

== ENCOUNTER 2021-11-03 10:01 | Inpatient (IN) | payer MEDICARE, MEDICAID, SELFPAY ==
[2021-11-03] VITALS (60 sets, daily range): BP systolic 127–240; BP diastolic 65–149; PULSE 70–109; RESP 12–78; TEMP 36.5–36.8; O2SAT 89–100; BMI 22.6
--- NOTE | 2021-11-03 11:02 | ECG_ITS ---
[facility] Test Date: 2021-11-03 Pat Name: Mal Gibbs Department: Room: ICU10 Gender: Male Bed Setter: : 1980 Requested By: Jerry Stevens Order Number: [id number] Mohini MD: Bharathi Markham M.D. Measurements Intervals [place] Rate: 84 P: 116 CA: 201 QRS: 101 QRSD: 121 T: 114 QT: 408 QTc: 484 Interpretive Statements SINUS RHYTHM ARM LEADS REVERSED [INVERTED P AND QRS IN I] Compared to ECG 09/04/2021 11:06:07 First degree AV block no longer present Intraventricular conduction delay no longer present T-wave abnormality no longer present Possible ischemia no longer present Electronically Signed On 11-04-2021 8:38:46 CDT by Bharathi Markham M.D. [id number]
--- NOTE | 2021-11-03 11:02 | XRR_ITS ---
PROCEDURE INFORMATION: Exam: XR Chest Exam date and time: 11/03/2021 11:56 AM Age: 41 years old Clinical indication: Shortness of breath. TECHNIQUE: Imaging protocol: Radiologic exam of the chest. Views: 1 view. COMPARISON: CR (CHEST, ) 09/04/2021 5:51 PM FINDINGS: Lungs: There are patchy hazy opacities throughout the chest bilaterally more prominent in the lower chest. Pleural spaces: No pleural effusion. No pneumothorax. Heart/Mediastinum: The cardiac silhouette is approximately unchanged. No gross evidence of pneumomediastinum. Bones/joints: No gross fracture. XR/XR chest 1V portable [id number] IMPRESSION: 1. Patchy hazy opacities throughout the chest bilaterally more prominent in the lower chest. This is suspicious for pneumonia (including COVID [address] to better characterize if clinically warranted. 2. Stable cardiomegaly.
--- NOTE | 2021-11-03 11:06 | ED_ITS ---
HPI - SOB/Dyspnea General: Chief Complaint: Shortness of Breath/Dyspnea Stated Complaint: sob Time Seen by Provider: 11/03/21 11:04 History of Present Illness: HPI Narrative: Mr. Gibbs is a 41-year-old gentleman with complex past medical history including COPD with chronic hypoxic respiratory failure, end-stage renal disease on dialysis, hypertension, hyperlipidemia who presents to the emergency department due to shortness of breath. He reports onset of symptoms last night without known specific provoking event. He has had progressive worsening of symptoms that are now moderate in intensity. Mild associated cough. He reports compliance with dialysis regimen including full run on Thursday. No other specific changes in health, exacerbating, or alleviating factors identified. Onset (ago): hour(s) Timing: progressively worsening Severity: moderate Exacerbating factors: exertion Associated symptoms: Reports cough Review of Systems General: Reports: 10 or more systems reviewed and unremarkable except in HPI and below PFSH ED PFSH: Medical History (HFpEF) heart failure with preserved ejection fraction Abdominal ascites Abdominal distention Abnormality of rib determined by X-ray Acute diastolic CHF (congestive heart failure) Anasarca Anemia Anxiety with depression Arteriovenous fistula for hemodialysis in place, secondary Ascites Atherosclerosis of coronary artery Chronic abdominal pain Chronic respiratory failure Congestive heart failure COPD (chronic obstructive pulmonary disease) COPD (chronic obstructive pulmonary disease) COVID 05/25 Current smoker Degenerative disc disease, lumbar End-stage renal disease needing dialysis End-stage renal disease on hemodialysis ESRD on dialysis Generalized anxiety disorder with panic attacks Gross hematuria Hemoptysis Hepatomegaly Hyperkalemia Hypertension Hypertensive emergency Ileus PHT (pulmonary hypertension) Pulmonary embolism 09/21 Inconclusive for very tiny peripheral LEFT lower lobe pulmonary artery sub segmental emboli versus poor opacification. Right heart failure with reduced right ventricular function Smoking addiction Transaminitis Urethral stricture Surgical History H/O hand surgery Amputation right 2&3 fingers 2017 History of adenoidectomy Stented coronary artery Family History Father No problems noted. Other Hypertension Social History Smoking and tobacco status: current every day smoker cigarettes Packs smoked per day: 1.5 Years cigarettes smoked: 21 [ Other cigarette details: started age 20, currently 0.5ppd ] Alcohol intake: never Marital status: Number of children: 3 Current occupational status: disabled History of recent travel: No Physical Exam Const: COMMON NORMALS: alert GENERAL APPEARANCE: cooperative, well developed and ill appearing (Chronically) HENMT: COMMON NORMALS: normocephalic and atraumatic HEAD & SCALP: normocephalic and atraumatic Eye: COMMON NORMALS: conjunctivae normal CONJUNCTIVA: Yes conjunctivae normal SCLERA: sclerae normal Neck/C-Spine: COMMON NORMALS: supple GENERAL: Yes trachea midline Resp: EFFORT & INSPECTION: Yes tachypneic AUSCULTATION: wheezes expiratory wheezes (Mild) and lower bilaterally and diminished lung sounds Cardio: COMMON NORMALS: regular rate and regular rhythm RATE: regular rate RHYTHM: regular rhythm OTHER: Palpable thrill at dialysis access site GI: COMMON NORMALS: Soft to palpation PALPATION: Yes Soft to palpation and No Tenderness to palpation present (GI) PERCUSSION: normal to percussion Extremity: GENERAL: Yes normal exam except as noted and No edema Neuro: COMMON NORMALS: moves all extremities SENSORIUM/ORIENTATION: Yes alert and No Orientation impaired Psych: COMMON NORMALS: mental status grossly normal and Normal thought process present THOUGHT PROCESS: Normal thought process present Course ED course: - Patient was seen and evaluated by me at bedside - Patient placed on cardiac monitors, IV access obtained - Initial evaluation notable for ill appearance mild to moderate respiratory distress as above. - RT treatment ordered - Labs and xrays personally interpreted by me. EKG with nonspecific ST segment abnormalities, no STEMI. - Analgesia, antiemetic, COPD exacerbation treatment ordered - Labs notable for no leukocytosis, essentially baseline normocytic anemia. Metabolic panel with mild hyponatremia, elevated creatinine consistent with known end-stage renal disease. Delta troponin negative. BNP greater than 70,000. - Imaging notable for patchy opacity throughout lung cantu, no pneumothorax or lobar consolidation. - Upon serial reexamination after treatment the patient was worsening with rega rds to respiratory status. BiPAP ordered. Nitro drip ordered for severe hypertension - Based on patient history, evaluation, and testing as interpreted the most likely cause of the patient's condition is hypertensive emergency, acute exacerbation of COPD, acute on chronic respiratory failure - The results of ED evaluation were discussed with the patient including plan for admission due to requirement for level of care not available if discharged to prevent significant worsening/deterioration. - Admitting service was contacted and Dr [] with [] agreed to admit the patient - Patient was admitted without further deterioration or significant events. Note: Click bubbles or prepopulated cantu in note writing are used for assistance with data collection and billing and are inherently more limited than narrative and other text portions of this note. Please use narrative for additional cl inical history and defer to narrative/free test for any case of contradictory information. If information appears in only free text or click bubble it should be considered present or absent as reported. Please contact note sba underwriter for clarifications of clinical information or contradictory information. MDM is a brief summary, contradictory or erroneous seeming information should be clarified and full note should be reviewed. Vital Signs: Vital signs: Vital Signs Temperature 97.9 F 11/05/21 11:00 Pulse Rate 65 11/05/21 11:00 Respiratory Rate 21 H 11/05/21 11:00 Blood Pressure 123/64 11/05/21 11:00 Pulse Oximetry 96 11/05/21 11:00 MDM - SOB/Dyspnea Medical Decision Making 41-year-old gentleman with complex past medical history including COPD with chronic hypoxic respiratory failure, end-stage renal disease on dialysis presenting with shortness of breath. Initial attempt of bronchodilators failed to improve respiratory distress and patient was placed on BiPAP with nitro drip for hypertensive emergency. Also treated for COPD exacerbation. Admitted for further management. Medical Records I reviewed the patient's medical records. Lab Data I reviewed the patient's lab results. : 11/05/21 05:46 11/05/21 05:46 Labs/Radiology: Radiology Impressions Chest X-Ray 11/03/21 11:02 IMPRESSION: 1. Patchy hazy opacities throughout the chest bilaterally more prominent in the lower chest. This is suspicious for pneumonia (including COVID [address] to better characterize if clinically warranted. 2. Stable cardiomegaly. Chest CT 11/04/21 13:51 IMPRESSION: 1. Small volume bilateral pleural effusions with bibasilar atelectasis. 2. Small volume pericardial effusion and cardiomegaly. 3. Small volume upper abdominal ascites. Laboratory Results WBC 6.7 10^3/uL (4.0-10.0) 11/03/21 11:15 RBC 3.64 10^6/uL (4.1-5.3) L 11/03/21 11:15 Hgb 9.9 g/dL (11.7-16.6) L 11/03/21 11:15 Hct 29.7 % (42.0-52.0) L 11/03/21 11:15 MCV 81.6 fl (80-94) 11/03/21 11:15 MCH 27.2 pg (28.0-34.0) L 11/03/21 11:15 MCHC 33.3 g/dL (30.0-36.0) 11/03/21 11:15 RDW 17.7 % (12.1-15.1) H 11/03/21 11:15 Plt Count 177 10^3/cmm (130-400) 11/03/21 11:15 MPV 9.1 fL (7.4-10.4) 11/03/21 11:15 Neut % (Auto) 76.3 % 11/03/21 11:15 Lymph % (Auto) 10.4 % 11/03/21 11:15 [place] % (Auto) 5.6 % 11/03/21 11:15 Eos % (Auto) 6.2 % 11/03/21 11:15 Baso % (Auto) 1.2 % 11/03/21 11:15 Neut # (Auto) 5.13 10^3/uL (1.8-7.7) 11/03/21 11:15 Lymph # (Auto) 0.7 10^3/uL (0.8-4.8) L 11/03/21 11:15 [place] # (Auto) 0.4 10^3/uL (0.2-0.9) 11/03/21 11:15 Eos # (Auto) 0.4 10^3/uL (0.0-0.8) 11/03/21 11:15 Baso # (Auto) 0.1 10^3/uL (0.0-0.1) 11/03/21 11:15 Nucleated RBC % (auto) 0 % 11/03/21 11:15 Nucleated RBCs # 0.0 /100WBC 11/03/21 11:15 Specimen Type Arterial 11/03/21 11:25 Sample Site Radial, right 11/03/21 11:25 ABG pH 7.43 (7.35-7.45) 11/03/21 11:25 ABG pCO2 39.4 mmHg (35-45) 11/03/21 11:25 ABG pO2 73.7 mmHg (80.0-100.0) L 11/03/21 11:25 ABG HCO3 26.4 mmol/L (22-26) H 11/03/21 11:25 ABG Base Excess 2.0 mmol/L (-2.0-2.0) 11/03/21 11:25 Alexei Test Pos 11/03/21 11:25 Hematocrit 31.0 % (42-52) L 11/03/21 11:25 Hgb O2 Saturation 92.4 % (95-100) L 11/03/21 11:25 Carboxyhemoglobin 2.5 %THgb (0.4-20.1) 11/03/21 11:25 Methemoglobin 1.0 % (0.4-1.5) 11/03/21 11:25 Total Hemoglobin 10.1 g/dL (14-18) L 11/03/21 11:25 O2 Delivery Device Nc 11/03/21 11:25 FiO2 3.0 % 11/03/21 11:25 Educational Technologist ID Rc 11/03/21 11:25 Sodium 126 mmol/L (136-145) L 11/03/21 11:15 Potassium 4.3 mmol/L (3.5-5.1) 11/03/21 11:15 Chloride 87 mmol/L (98-107) L 11/03/21 11:15 Carbon Dioxide 25 mmol/L (22-29) 11/03/21 11:15 Anion Gap 18.3 (5-19) 11/03/21 11:15 BUN 36 mg/dL (6-20) H 11/03/21 11:15 Creatinine 6.3 mg/dL (0.7-1.2) H* 11/03/21 11:15 GFR Calculation 9.9 mL/min (90-130) L 11/03/21 11:15 Glucose 83 mg/dL (65-115) 11/03/21 11:15 Calculated Osmolality 269 mOsm/kg (285-295) L 11/03/21 11:15 Calcium 9.8 mg/dL (8.5-10.5) 11/03/21 11:15 Total Bilirubin 0.8 mg/dL (0.15-1.2) 11/03/21 11:15 AST 11 U/L (0-40) 11/03/21 11:15 ALT 6 U/L (0-41) 11/03/21 11:15 Alkaline Phosphatase 145 IU/L (40-130) H 11/03/21 11:15 Troponin T Baseline 65 ng/L (0-15) H 11/03/21 11:15 NT-Pro-B Natriuret Pep > 48196 pg/mL (0-125) H 11/03/21 11:15 Total Protein 7.8 g/dL (6.6-8.7) 11/03/21 11:15 Albumin 4.2 g/dL (3.5-5.2) 11/03/21 11:15 Globulin 3.6 g/dL (1.3-4.6) 11/03/21 11:15 Coronavirus 229E (PCR) Not detected (NOT DETECT) 11/03/21 12:55 SARS-CoV-2 (PCR) Not detected (NOT DETECT) 11/03/21 12:55 Critical Care Time Critical Care Time: Critical Care Time: Yes Total Critical Care Time: 50 Attestation: Due to a high probability of clinically significant, possibly life threatening deterioration, the patient required my highest level of attention and preparedness to intervene emergently and I personally spent this critical care time directly and personally managing the patient. This critical care time inc luded obtaining a history; examining the patient; pulse oximetry; ordering and review of laboratory and imaging studies; arranging urgent treatment with development of a management plan; evaluation of patient's response to treatment; frequent reassessment; and, discussions with other providers as applicable. It was exclusive of separately billable procedures. Primary system involved is cardiopulmonary and renal Discharge Plan Discharge Patient Disposition: Admitted As Inpatient Admit Provider: Emanuel Nation Clinical Impression: Hypertensive emergency, ESRD on dialysis, Acute exacerbation of chronic obstructive airways disease, Pneumonia, Acute and chronic respiratory failure with hypoxia Condition: Stable Discharge Diet: Cardiac Discharge Activity: Increase activity as tolerated Coding Level of Care Code ED Electrical Panel Builder for [facility] Fwd Exam Comprehensive
[2021-11-03 11:25] LABS: Basophils # 0.1 10^3/uL (0.0-0.1); Basophils % 1.2 %; Eosinophils # 0.4 10^3/uL (0.0-0.8); Eosinophils % 6.2 %; Hematocrit 29.7 % (42.0-52.0); Hemoglobin 9.9 g/dL (11.7-16.6); Lymphocytes # 0.7 10^3/uL (0.8-4.8); Lymphocytes % 10.4 %; Mean Corpuscular HGB Conc 33.3 g/dL (30.0-36.0); Mean Corpuscular Hemoglobin 27.2 pg (28.0-34.0); Mean Corpuscular Volume 81.6 fl (80-94); Mean Platelet Volume 9.1 fL (7.4-10.4); Monocytes # 0.4 10^3/uL (0.2-0.9); Monocytes % 5.6 %; Neutrophils # 5.13 10^3/uL (1.8-7.7); Neutrophils % 76.3 %; Nucleated Red Blood Cells % 0 %; Platelet Count 177 10^3/cmm (130-400); Red Blood Count 3.64 10^6/uL (4.1-5.3); Red Cell Distribution Width 17.7 % (12.1-15.1); White Blood Count 6.7 10^3/uL (4.0-10.0)
[2021-11-03 11:35] LABS: ABG PCO2 39.4 mmHg (35-45); ABG PH Result 7.43 (7.35-7.45); Blood Gas Allen Test Pos; Blood Gas Operator Identificat RC; Blood Gas Sample Site Radial, right; Blood Gas Sample Type Arterial; Carboxyhemoglobin 2.5 %THgb (0.4-20.1); HCO3 ABG 26.4 mmol/L (22-26); HGB O2 Sat 92.4 % (95-100); Oxygen Device NC; PO2 ABG 73.7 mmHg (80.0-100.0); Total Hemoglobin 10.1 g/dL (14-18)
[2021-11-03] MEDS: ipratropium-albuterol 3 mL Neb INHALATION (11:42)
[2021-11-03 11:52] LABS: Troponin(5th) Baseline 65 ng/L (0-15)
[2021-11-03] MEDS: doxycycline 100 MG in sodium chloride 0.9% (plus) 100 ML IV (11:57)
[2021-11-03 12:01] LABS: Alanine Aminotransferase 6 U/L (0-41); Albumin Level 4.2 g/dL (3.5-5.2); Alkaline Phosphatase 145 IU/L (40-130); Anion Gap 18.3 (5-19); Aspartate Amino Transferase 11 U/L (0-40); Blood Urea Nitrogen 36 mg/dL (6-20); Calcium 9.8 mg/dL (8.5-10.5); Carbon Dioxide 25 mmol/L (22-29); Chloride 87 mmol/L (98-107); Globulin 3.6 g/dL (1.3-4.6); Glomerular Filtration Rate 9.9 mL/min (90-130); Glucose 83 mg/dL (65-115); Osmolality Calculated 269 mOsm/kg (285-295); Potassium 4.3 mmol/L (3.5-5.1); Sodium 126 mmol/L (136-145); Total Bilirubin 0.8 mg/dL (0.15-1.2); Total Protein 7.8 g/dL (6.6-8.7)
[2021-11-03] MEDS: morphine 4 mg/mL SDV 1 mL IVP (12:15)
[2021-11-03] MEDS: ondansetron 2 mg/ML SDV 2 mL 4 MG IVP (12:16)
[2021-11-03 12:26] LABS: NT Pro B Type Natriuretic Pept > 70000 pg/mL (0-125)
[2021-11-03] MEDS: nitroglycerin drip 50 MG/250 ML PREMIX IV (12:27)
[2021-11-03] MEDS: cefTRIAXone 1,000 MG in sodium chloride 0.9% (plus) 50 ML 100 MG IV (12:59)
--- NOTE | 2021-11-03 13:09 | ECG_ITS ---
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 Measurements Intervals [place] Rate: 70 P: -50 IN: 214 QRS: -68 QRSD: 120 T: -48 QT: 449 QTc: 487 Interpretive Statements ECTOPIC ATRIAL RHYTHM WITH FIRST DEGREE AV BLOCK LEFT AXIS DEVIATION [QRS AXIS < -30] POSSIBLE LEFT VENTRICULAR HYPERTROPHY [VOLTAGE CRITERIA PLUS LAE OR QRS WIDENING] PROLONGED QT INTERVAL Compared to ECG 11/03/2021 12:43:23 Ectopic atrial rhythm now present First degree AV block now present Left-axis deviation now present Prolonged QT interval now present Sinus rhythm no longer present Electronically Signed On 11-04-2021 8:47:20 CDT by Bharathi Markham M.D. [id number]
[2021-11-03 13:53] LABS: Lactic Sepsis W/Reflex 0.4 mmol/L (0.5-2.2)
[2021-11-03 13:55] LABS: Troponin 5 2HR 57.64 ng/L (0-15)
[2021-11-03 13:59] LABS: Troponin 5 2HR Delta -7.36 ABS# (0-10)
--- NOTE | 2021-11-03 14:30 | PC.NURSE ---
Pt arrvies to ICU from ED. Rt at bedside. BiPAp on. NItrogtt infusing at 20mcg/min, SBP greater than 200, nitro titrated up.
[2021-11-03 15:23] LABS: Adenovirus Not Detected (NOT DETECT); Chlamydia Pneumoniae Not Detected (NOT DETECT); Coronavirus 229E,HKU1,NL63,OC4 Not Detected (NOT DETECT); Human Metapneumovirus Not Detected (NOT DETECT); Human Rhinovirus/Enterovirus Not Detected (NOT DETECT); Influenza A Not Detected (NOT DETECT); Influenza A H1 Not Detected (NOT DETECT); Influenza A H1-2009 Not Detected (NOT DETECT); Influenza A H3 Not Detected (NOT DETECT); Influenza B Not Detected (NOT DETECT); Mycoplasma Pneumoniae Not Detected (NOT DETECT); Parainfluenza Virus Type 1 Not Detected (NOT DETECT); Parainfluenza Virus Type 2 Not Detected (NOT DETECT); Parainfluenza Virus Type 3 Not Detected (NOT DETECT); Parainfluenza Virus Type 4 Not Detected (NOT DETECT); Respiratory Syncytial Virus A Not Detected (NOT DETECT); Respiratory Syncytial Virus B Not Detected (NOT DETECT); SARS-COV-2 Not Detected (NOT DETECT)
--- NOTE | 2021-11-03 15:36 | PM.CONSULT ---
Providers/Reason For Consult Consulting Physician/Specialty*: Nephro Reason for Consult*: ESRD mgmt Attending Physician: Emanuel Nation MD Primary Care Provider: Mal Peres DO History of Present Illness History of Present Illness Thank you for consultation, today the pleasure of reviewing this 41-year-old gentleman I know well from prior hospitalizations. Apparently he went to his dialysis on Thursday, however, there are conflicting reports and it is quite possible that he did not go. He now comes in with shortness of breath. On arrival he was found to have malignant hypertension with a blood pressure of 210/114 going up to 240/149 and he is now initiated on the nitro infusion. He is also on BiPAP for his shortness of breath and is able to maintain his oxygen levels. No other acute new issues. Medications/Allergies Home Medications Medication Instructions Recorded Confirmed Last Taken Type rifaximin 550 mg tablet (Xifaxan) 550 mg PO BID 06/10/21 11/03/21 11/02/21 History amlodipine 10 mg tablet 10 mg PO DAILY 30 Days #30 tab 07/16/21 11/03/21 11/02/21 Rx atorvastatin 40 mg tablet 40 mg PO BEDTIME #30 tab 07/25/21 11/03/21 11/02/21 Rx carvedilol 25 mg tablet 25 mg PO BID 30 Days #60 tab 07/25/21 11/03/21 11/02/21 Rx clopidogrel 75 mg tablet 75 mg PO DAILY #30 tab 07/25/21 11/03/21 11/02/21 Rx albuterol sulfate 90 mcg/actuation 2 puff INHALATION QID PRN #2 g 08/06/21 11/03/21 10/03/21 Rx aerosol inhaler (ProAir HFA) umeclidinium 62.5 mcg/actuation 1 inh INHALATION DAILY #30 ea 08/06/21 11/03/21 11/02/21 Rx blister powder for inhalation (Incruse Ellipta) fluticasone propionate 50 2 spray INTRANASAL DAILY PRN 08/12/21 11/03/21 10/03/21 History mcg/actuation nasal spray,suspension isosorbide mononitrate 60 mg 60 mg PO DAILY 08/12/21 11/03/21 11/02/21 History tablet,extended release 24 hr minoxidil 10 mg tablet 10 mg PO BID #180 tab 08/27/21 11/03/21 11/02/21 Rx clonazepam 0.5 mg tablet 1 mg PO TID #90 tab 08/28/21 11/03/21 11/02/21 Rx albuterol sulfate 2.5 mg INHALATION BID PRN 08/31/21 11/03/21 10/03/21 History hydralazine 50 mg tablet 75 mg PO TID #0 tab 09/06/21 11/03/21 11/02/21 Rx cyclobenzaprine 10 mg tablet 10 mg PO Q12H PRN #30 tab 09/11/21 11/03/21 10/03/21 Rx aspirin 81 mg tablet,delayed 81 mg PO DAILY #30 tab 09/12/21 11/03/21 11/02/21 Rx release pantoprazole 40 mg tablet,delayed 40 mg PO DAILY #30 tab 09/12/21 11/03/21 11/02/21 Rx release clonidine HCl 0.2 mg tablet 0.2 mg PO TID 11/03/21 11/03/21 11/02/21 History ferric citrate 210 mg iron tablet 420 mg PO TID 11/03/21 11/03/21 11/02/21 History (Auryxia) lactulose 20 gram/30 mL oral 10 g PO TID PRN 11/03/21 11/03/21 Unknown History solution lisinopril 40 mg tablet 40 mg PO DAILY 11/03/21 11/03/21 11/02/21 History nitroglycerin 0.4 mg sublingual 0.4 mg SUBLINGUAL Q5M PRN 11/03/21 11/03/21 Unknown History tablet quetiapine 25 mg tablet (Seroquel) 25 mg PO BEDTIME 11/03/21 11/03/21 11/02/21 History Allergies Allergy/AdvReac Type Severity Reaction Status Date / Time nifedipine Allergy ALGY-Swell Verified 10/15/21 09:22 Lip/Tongue/Throat Current Medications Generic Name Dose Route Start Last Admin Trade Name Freq PRN Reason Stop Dose Admin Nitroglycerin/Dextrose 50 mg in 250 mls @ 0 mls/hr 11/03/21 12:15 11/03/21 14:39 Nitroglycerin Drip IV 20 mcg/min .Q0M ARTEM 6 mls/hr Titration Protocol Per Protocol PFSH Acute PFSH: Medical History (HFpEF) heart failure with preserved ejection fraction Abdominal ascites Abdominal distention Abnormality of rib determined by X-ray Acute diastolic CHF (congestive heart failure) Anasarca Anemia Anxiety with depression Arteriovenous fistula for hemodialysis in place, secondary Ascites Atherosclerosis of coronary artery Chronic abdominal pain Chronic respiratory failure Congestive heart failure COPD (chronic obstructive pulmonary disease) COPD (chronic obstructive pulmonary disease) COVID 05/25 Current smoker Degenerative disc disease, lumbar End-stage renal disease needing dialysis End-stage renal disease on hemodialysis ESRD on dialysis Generalized anxiety disorder with panic attacks Gross hematuria Hemoptysis Hepatomegaly Hyperkalemia Hypertension Hypertensive emergency Ileus PHT (pulmonary hypertension) Pulmonary embolism 09/21 Inconclusive for very tiny peripheral LEFT lower lobe pulmonary artery sub segmental emboli versus poor opacification. Right heart failure with reduced right ventricular function Smoking addiction Transaminitis Urethral stricture Surgical History H/O hand surgery Amputation right 2&3 fingers 2017 History of adenoidectomy Stented coronary artery Family History Father No problems noted. Other Hypertension Social History Smoking and tobacco status: current every day smoker cigarettes Packs smoked per day: 1.5 Years cigarettes smoked: 21 [ Other cigarette details: started age 20, currently 0.5ppd ] Alcohol intake: never Marital status: Number of children: 3 Current occupational status: disabled History of recent travel: No Vitals/I&O/Wt Last Vital Signs Temp 98.3 F 11/03/21 10:08 Pulse 78 11/03/21 15:10 Resp 21 H 11/03/21 15:09 BP 206/131 11/03/21 14:15 Pulse Ox 99 11/03/21 15:10 11/03/21 11/03/21 11/03/21 06:59 14:59 22:59 Intake Total 158.9 / 158.9 Balance 158.9 / 158.9 Weight last 48 hrs Weight 79.832 kg Physical Exam Narrative: Constitutional: Awake, comfortable HEENT: Wet mucosa, no jvp, non icteric Lungs: Bilaterally clear without discernible wheeze or rales in all lung zones CVS: S1 S2, no murmurs Abdo: Soft, BS ok, distended belly Ext 4: Minimal edema, peripheral perfusion with no cyanosis Neurological: Grossly non-focal Data : 11/03/21 11:15 11/03/21 11:15 Micro: Microbiology 11/03/21 13:15 Blood Culture - Preliminary Blood SPECIMEN COLLECTED 11/03/21 13:19 Blood Culture - Preliminary Blood SPECIMEN COLLECTED A&P Assessment and plan (1) ESRD on dialysis: Status: Acute Plan 1. ESRD We will dialyze him emergently this evening to control his volume and blood pressure. 3K bath, ultrafiltration 4 L. Daily evaluation, will likely dialyze him again on Thursday. Dose medication for GFR less than 15 on dialysis 2. Hypertension Likely in part secondary to fluid overload either from dietary noncompliance or skipping dialysis. Currently on nitro infusion Ultrafiltration with dialysis will help 3. Chronic ESRD issues This can be handled as an outpatient as part of standard monthly management including anemia, hyperphosphatemia, secondary hyperparathyroidism etc. 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
[2021-11-03] MEDS: hyDRALAzine 50 mg Tablet 75 MG PO ×2 (17:23→21:05)
[2021-11-03] MEDS: minoxidil 10 mg Tablet PO (17:23)
[2021-11-03] MEDS: heparin 5,000 unit/mL INJ 1 mL 5000 UNIT SUBCUT (17:23)
[2021-11-03] MEDS: carvedilol 25 mg Tablet PO (17:23)
--- NOTE | 2021-11-03 17:26 | PM.HP ---
Providers/Chief Complaint Admitting Physician: Emanuel Nation MD Primary Care Provider: Mal Peres DO Chief Complaint: sob History of Present Illness Mal Gibbs is a 41 year old male who has had multiple admissions secondary to heart failure preserved ejection fraction exacerbation, fluid overload, recurrent ascites, worsening shortness of breath hypertensive emergencies, on previous admission he was seen by the exhaust emissions automotive technician and a management professionals, he qualified for BiPAP, he was also given appointment to see new PCP Dr. Perez, patient carries history of ascites however etiology has been undiagnosed after extensive work-up including liver biopsy, his hemoglobin was optimized on last admission, BiPAP was set up for home, presenting today with chief complaint of worsening shortness of breath and hypertensive emergency. Dr. Bell recommended 6-minute walk test and pulmonary function test. Patient stating that reason he decided to come to the hospital because of worsening of shortness of breath, he stating that he was compliant with his BiPAP and his dialysis was 4 hours On Thursday he has not noticed any chest pain, diarrhea, fever, he has multiple bug bites on his body attributing to recent camping In the ER he was put on BiPAP, nitro drip was started, he was transferred to ICU for further management Review of Systems Const: Reports: body aches Eyes: Denies: change in vision ENMT: Denies: throat pain Card: Denies: chest pain Resp: Reports: dyspnea GI: Denies: abdominal pain Skin/Breast: Reports: new lesions and changing lesions Neuro: Denies: headache(s) Psych: Reports: anxiety Endo: Denies: polyuria Jefferson/Lymph: Denies: easy bruising All/Imm: Denies: urticaria Medications/Allergies Home Medications Medication Instructions Recorded Confirmed Last Taken Type rifaximin 550 mg tablet (Xifaxan) 550 mg PO BID 06/10/21 11/03/21 11/02/21 History amlodipine 10 mg tablet 10 mg PO DAILY 30 Days #30 tab 07/16/21 11/03/21 11/02/21 Rx atorvastatin 40 mg tablet 40 mg PO BEDTIME #30 tab 07/25/21 11/03/21 11/02/21 Rx carvedilol 25 mg tablet 25 mg PO BID 30 Days #60 tab 07/25/21 11/03/21 11/02/21 Rx clopidogrel 75 mg tablet 75 mg PO DAILY #30 tab 07/25/21 11/03/21 11/02/21 Rx albuterol sulfate 90 mcg/actuation 2 puff INHALATION QID PRN #2 g 08/06/21 11/03/21 10/03/21 Rx aerosol inhaler (ProAir HFA) umeclidinium 62.5 mcg/actuation 1 inh INHALATION DAILY #30 ea 08/06/21 11/03/21 11/02/21 Rx blister powder for inhalation (Incruse Ellipta) fluticasone propionate 50 2 spray INTRANASAL DAILY PRN 08/12/21 11/03/21 10/03/21 History mcg/actuation nasal spray,suspension isosorbide mononitrate 60 mg 60 mg PO DAILY 08/12/21 11/03/21 11/02/21 History tablet,extended release 24 hr minoxidil 10 mg tablet 10 mg PO BID #180 tab 08/27/21 11/03/21 11/02/21 Rx clonazepam 0.5 mg tablet 1 mg PO TID #90 tab 08/28/21 11/03/21 11/02/21 Rx albuterol sulfate 2.5 mg INHALATION BID PRN 08/31/21 11/03/21 10/03/21 History hydralazine 50 mg tablet 75 mg PO TID #0 tab 09/06/21 11/03/21 11/02/21 Rx cyclobenzaprine 10 mg tablet 10 mg PO Q12H PRN #30 tab 09/11/21 11/03/21 10/03/21 Rx aspirin 81 mg tablet,delayed 81 mg PO DAILY #30 tab 09/12/21 11/03/21 11/02/21 Rx release pantoprazole 40 mg tablet,delayed 40 mg PO DAILY #30 tab 09/12/21 11/03/21 11/02/21 Rx release clonidine HCl 0.2 mg tablet 0.2 mg PO TID 11/03/21 11/03/21 11/02/21 History ferric citrate 210 mg iron tablet 420 mg PO TID 11/03/21 11/03/21 11/02/21 History (Auryxia) lactulose 20 gram/30 mL oral 10 g PO TID PRN 11/03/21 11/03/21 Unknown History solution lisinopril 40 mg tablet 40 mg PO DAILY 11/03/21 11/03/21 11/02/21 History nitroglycerin 0.4 mg sublingual 0.4 mg SUBLINGUAL Q5M PRN 11/03/21 11/03/21 Unknown History tablet quetiapine 25 mg tablet (Seroquel) 25 mg PO BEDTIME 11/03/21 11/03/21 11/02/21 History Allergies Allergy/AdvReac Type Severity Reaction Status Date / Time nifedipine Allergy ALGY-Swell Verified 10/15/21 09:22 Lip/Tongue/Throat PFSH Acute PFSH: Medical History (HFpEF) heart failure with preserved ejection fraction Abdominal ascites Abdominal distention Abnormality of rib determined by X-ray Acute diastolic CHF (congestive heart failure) Anasarca Anemia Anxiety with depression Arteriovenous fistula for hemodialysis in place, secondary Ascites Atherosclerosis of coronary artery Chronic abdominal pain Chronic respiratory failure Congestive heart failure COPD (chronic obstructive pulmonary disease) COPD (chronic obstructive pulmonary disease) COVID 05/25 Current smoker Degenerative disc disease, lumbar End-stage renal disease needing dialysis End-stage renal disease on hemodialysis ESRD on dialysis Generalized anxiety disorder with panic attacks Gross hematuria Hemoptysis Hepatomegaly Hyperkalemia Hypertension Hypertensive emergency Ileus PHT (pulmonary hypertension) Pulmonary embolism 09/21 Inconclusive for very tiny peripheral LEFT lower lobe pulmonary artery sub segmental emboli versus poor opacification. Right heart failure with reduced right ventricular function Smoking addiction Transaminitis Urethral stricture Surgical History H/O hand surgery Amputation right 2&3 fingers 2017 History of adenoidectomy Stented coronary artery Family History Father No problems noted. Other Hypertension Social History Smoking and tobacco status: current every day smoker cigarettes Packs smoked per day: 1.5 Years cigarettes smoked: 21 [ Other cigarette details: started age 20, currently 0.5ppd ] Alcohol intake: never Marital status: Number of children: 3 Current occupational status: disabled History of recent travel: No Vitals/I&O/Wt Last Vital Signs Temp 98.3 F 11/03/21 10:08 Pulse 78 07/03/22 15:10 Resp 21 H 11/03/21 15:09 BP 206/131 11/03/21 14:15 Pulse Ox 99 11/03/21 15:10 11/03/21 11/03/21 11/03/21 06:59 14:59 22:59 Intake Total 158.9 / 158.9 Balance 158.9 / 158.9 Weight last 48 hrs Weight 79.832 kg Physical Exam Narrative: Young male Patient does not look fluid overloaded Lower extremity venous stasis dermatitis I am able to appreciate wrinkling of skin Abdomen is nontender Appears more than stated age On BiPAP Nitro drip at the bedside S1, S2 Nonfocal neuro exam Data : 11/04/21 05:12 11/04/21 05:12 Micro: Microbiology 11/03/21 13:15 Blood Culture - Preliminary Blood SPECIMEN COLLECTED 11/03/21 13:19 Blood Culture - Preliminary Blood SPECIMEN COLLECTED A&P Assessment and plan (1) Hypertensive emergency: Status: Acute (2) Acute exacerbation of chronic obstructive airways disease: Status: Acute (3) Acute and chronic respiratory failure with hypoxia: Status: Acute (4) Ascites: Status: Acute (5) ESRD on dialysis: Status: Acute (6) Anemia: Status: Acute Plan Hypertensive emergency currently on nitro drip Shortness of breath related to fluid overload: Pulmonary edema, currently on BiPAP Patient is seeing Dr. Harden outpatient Noncompliance End-stage renal disease hemodialysis Thursday Appreciate nephro recommendations Renal dialysis diet with strict restrictions not to eat anything from outside Patient is full code DVT prophylaxis: Heparin nephro consult Ascites? bedbugs vs tickbites Attestations Medical Necessity Statement*: More than 2 midnights anticipated for management of fluid overload, end-stage renal disease,htn emergency Time Spent in Patient Care: 40 Coding Level of Care Code Acute Product Manager for Chg Fwd Diagnoses Hypertensive emergency I16.1 Acute exacerbation of chronic obstructive airways disease J44.1 Acute and chronic respiratory failure with hypoxia J96.21 Ascites R18.8 ESRD on dialysis N18.6; Z99.2 Anemia D64.9
[2021-11-03 17:50] LABS: Troponin 5 6HR 50.25 ng/L (0-15)
[2021-11-03 18:47] LABS: Glucose Point of Care 110 mg/dL (70-110)
--- NOTE | 2021-11-03 19:16 | PC.NURSE ---
Bedside report completed with JAGUAR Angulo.
--- NOTE | 2021-11-03 19:25 | PC.NURSE ---
Pt resting quietly in bed with eyes closed. Hemodialysis in progress. Pt opens eyes to voice, and shakes his head yes and no to questions, but remains lethargic. Pt has fistula in left arm. Pt's skin is sallow.
--- NOTE | 2021-11-03 19:25 | PC.NURSE ---
Shift summary: Pt resting in bed, with BiPap at 35% FIO2. Pt answers questions appropriately, but is lethargic , preferring to rest with eyes closed. Monitor shows sinus rhythm. BP is still elevated, NItro gtt has been increased up to 120mcg/min this shift. Dialysis in process at this time.
[2021-11-03] MEDS: cloNIDine 0.1 mg Tablet 0.2 MG PO (21:04)
[2021-11-03 21:24] LABS: Glucose Point of Care 171 mg/dL (70-110)
[2021-11-03] MEDS: nitroglycerin drip 50 MG/250 ML PREMIX 34.5 MG IV (21:46)
[2021-11-03] MEDS: acetaminophen 500 mg Tablet PO (22:46)
[2021-11-04] VITALS (72 sets, daily range): BP systolic 108–191; BP diastolic 48–116; PULSE 62–88; RESP 11–29; TEMP 36.6; O2SAT 92–100
--- NOTE | 2021-11-04 00:49 | PC.NURSE ---
Pt resting quietly in bed with eyes closed. Respirations even and unlabored. BiPAP in place with zero leak.
[2021-11-04] MEDS: heparin 5,000 unit/mL INJ 1 mL 5000 UNIT SUBCUT ×2 (02:59→15:02)
--- NOTE | 2021-11-04 05:50 | PC.NURSE ---
Pt continues to be very drowsy, but now speaks when spoken to. Pt is alert and oriented x 4.
[2021-11-04 05:54] LABS: Basophils % 0.2 %; Hematocrit 27.4 % (42.0-52.0); Hemoglobin 8.9 g/dL (11.7-16.6); Lymphocytes # 0.3 10^3/uL (0.8-4.8); Lymphocytes % 6.9 %; Mean Corpuscular HGB Conc 32.5 g/dL (30.0-36.0); Mean Corpuscular Hemoglobin 26.4 pg (28.0-34.0); Mean Corpuscular Volume 81.3 fl (80-94); Mean Platelet Volume 9.8 fL (7.4-10.4); Monocytes # 0.2 10^3/uL (0.2-0.9); Monocytes % 5.5 %; Neutrophils # 3.81 10^3/uL (1.8-7.7); Neutrophils % 87.2 %; Nucleated Red Blood Cells % 0 %; Platelet Count 215 10^3/cmm (130-400); Red Blood Count 3.37 10^6/uL (4.1-5.3); White Blood Count 4.4 10^3/uL (4.0-10.0)
[2021-11-04 06:09] LABS: Anion Gap 17.1 (5-19); Blood Urea Nitrogen 28 mg/dL (6-20); Calcium 9.3 mg/dL (8.5-10.5); Carbon Dioxide 26 mmol/L (22-29); Chloride 92 mmol/L (98-107); Glomerular Filtration Rate 12.4 mL/min (90-130); Glucose 132 mg/dL (65-115); Magnesium 1.9 mg/dL (1.7-2.3); Osmolality Calculated 279 mOsm/kg (285-295); Potassium 4.1 mmol/L (3.5-5.1); Sodium 131 mmol/L (136-145)
--- NOTE | 2021-11-04 08:44 | P.PN_ITS ---
Subjective Subjective: No new issues. He remains comfortable on BIPAP, breathing better after dialysis yesterday Bp coming down with UF and nitro gtt No edema Still has ascites Vitals/I&O/Wt Last Vital Signs Temp 97.9 F 11/04/21 04:00 Pulse 73 11/04/21 07:54 Resp 13 11/04/21 07:52 BP 162/93 11/04/21 06:15 Pulse Ox 98 11/04/21 07:54 11/03/21 11/04/21 11/04/21 22:59 06:59 14:59 Intake Total 300.250 / 459.150 183.275 / 642.425 Output Total 4000 / 4000 Balance -3699.750 / -3540.850 183.275 / -3357.575 Weight last 48 hrs Weight 73.89 kg Weight 73.9 kg Weight 79.832 kg Physical Exam Narrative: Constitutional: Awake, comfortable HEENT: Wet mucosa, no jvp, non icteric Lungs: Bilaterally clear without discernible wheeze or rales in all lung zones CVS: S1 S2, no murmurs Abdo: Soft, BS ok, distended belly Ext 4: Minimal edema, peripheral perfusion with no cyanosis Neurological: Grossly non-focal Data : 11/04/21 05:12 11/04/21 05:12 Micro: Microbiology 11/03/21 13:15 Blood Culture - Preliminary Blood SPECIMEN COLLECTED 11/03/21 13:19 Blood Culture - Preliminary Blood SPECIMEN COLLECTED A&P Assessment and plan (1) ESRD on dialysis: Status: Acute Plan 1. ESRD Dialyzed last night Next session tomorrow 3K bath, ultrafiltration 4 L. Dose medication for GFR less than 15 on dialysis 2. Hypertension Likely in part secondary to fluid overload either from dietary noncompliance or skipping dialysis. Better with UF Ultrafiltration with dialysis will help 3. Chronic ESRD issues This can be handled as an outpatient as part of standard monthly management including anemia, hyperphosphatemia, secondary hyperparathyroidism etc. Continue home medication Thank you for consultation, it is a pleasure to follow these cases with you Exam and interview performed with aid of bedside RN using telemedicine Time spent 20 min inc > 50% of time in face to face counseling Caden Salazar MD [facility] [phone] Attestations Medical Necessity Statement*: eval for ESRD mgmt Coding Level of Care Code Acute Distribution System Operator for Chg Fwd Diagnoses ESRD on dialysis N18.6; Z99.2
[2021-11-04] MEDS: cloNIDine 0.1 mg Tablet 0.2 MG PO ×3 (09:32→20:21)
[2021-11-04] MEDS: isosorbide mononitrate ER 60 mg Tablet PO (09:32)
[2021-11-04] MEDS: carvedilol 25 mg Tablet PO ×2 (09:32→18:10)
[2021-11-04] MEDS: lisinopril 20 mg Tablet 40 MG PO (09:32)
[2021-11-04] MEDS: amlodipine 10 mg Tablet PO (09:32)
[2021-11-04] MEDS: hyDRALAzine 50 mg Tablet 75 MG PO (09:32)
[2021-11-04] MEDS: minoxidil 10 mg Tablet PO ×2 (09:33→18:10)
--- NOTE | 2021-11-04 09:56 | PC.CHAP ---
Pastoral Care Encounter/Spiritual Assessment Type of Contact [] Declined medical supply technician visit [] Patient/Family/Request visit [] Outpatient visit [] Follow-up visit [] Physician referral [] Code/Alert [x] Routine visit [] Staff referral [] Actively dying [] Patient sleeping [] Family support [] [] Out of room [] Palliative care [] [] Receiving care in room [] Pre-surgical visit [] Trauma [] Long length of stay [x] ICU visit [x] Other: oxg mask.... responded Relational/Emotional Strength [] Patient feels connected with others/family/visitors/staff [] Distress [] Loneliness/isolation [] Abandonment Spirituality of Patient [] Person of Ct [] Attends Zoroastrian of their Ct [] Believes in Prayer [] Reads Bible or Hoahaoism materials [] There are Spiritual issues to be addressed Window Treatment Installer Interventions [x] Prayer [] Active listening [] Non-anxious presence [] Spiritual/emotional support [] Crisis/trauma care [] Spiritual counseling [] Bereavement support [] Provided bereavement packet [] Provided Bible/devotional materials [] Provided toy/stuffed animal, coloring book to patient or family member [] Provided Communion [] Anointing/Neversink [] Salvation [x] Completed spiritual assessment [] Other: Impact on Illness or Injury [] Angry [] Fearful [] Anxious [] Often cries [] Exhaustion [] Unable to work [] Unable to attend hindu [] Unable to walk/stand [] Unable to read [] Unable to drive [] Unable to eat/drink [] Unable to sleep [] Unable to be with family [] Patient intubated [] Other: Summary Time spent with patient
[2021-11-04] MEDS: nitroglycerin drip 50 MG/250 ML PREMIX 12 MG IV (11:06)
--- NOTE | 2021-11-04 13:44 | PM.PN ---
Subjective Subjective: Blood pressure was better this morning however dbp>116 by noon Patient is not complaining active chest pain Stating that his shortness of breath is improved, used BiPAP all night Might have to restart nitro drip Resistant hypertension Vitals/I&O/Wt Last Vital Signs Temp 97.9 F 11/04/21 04:00 Pulse 84 11/04/21 12:58 Resp 17 11/04/21 09:30 BP 191/116 11/04/21 09:32 Pulse Ox 96 11/04/21 12:58 11/03/21 11/04/21 11/04/21 22:59 06:59 14:59 Intake Total 300.250 / 459.150 183.275 / 642.425 374.2 / 374.2 Output Total 4000 / 4000 Balance -3699.750 / -3540.850 183.275 / -3357.575 374.2 / 374.2 Weight last 48 hrs Weight 73.89 kg Weight 73.9 kg Weight 79.832 kg Physical Exam Narrative: Patient looks euvolemic Awake and alert On BiPAP Multiple bug bites on his abdomen No signs of cellulitis Venous stasis dermatitis No active signs of he is awake and alert Nonfocal neuro exam Currently on BiPAP no sign of fluid overload Data : 11/04/21 05:12 11/04/21 05:12 Micro: Microbiology 11/03/21 13:15 Blood Culture - Preliminary Blood NEGATIVE TO DATE 11/03/21 13:19 Blood Culture - Preliminary Blood NEGATIVE TO DATE A&P Assessment and plan (1) Hypertensive emergency: Status: Acute (2) Acute exacerbation of chronic obstructive airways disease: Status: Acute (3) Ascites: Status: Acute (4) GERD without esophagitis: Status: Acute (5) Anemia: Status: Acute (6) ESRD on dialysis: Status: Acute Plan Malignant hypertension Unfortunately he has to stay in ICU he might need nitro drip blood pressure is fluctuant Will follow with nephro recommendations He was dialyzed on Thursday acute COPD exacerbation due to fluid overload due to end-stage renal disease Patient symptoms improved with use of BiPAP and dialysis He can get BiPAP break, he can have renal dialysis diet I am not treating him for pneumonia, his x-ray infiltrates are chronic He has been afebrile Pending 6-minute walk test and pulmonary function test as per Dr. Datar's recommendation No leukocytosis Will request CT chest He does have emphysematous COPD I will start him on low-dose azithromycin for anti-inflammatory effect rule out pneumonia Resistant hypertension Secondary hypertension work-up was finished on previous admission Noncompliance Ascites Hepatomegaly Full code Renal dialysis diet DVT prophylaxis Heparin Attestations Medical Necessity Statement*: Continue medical management Time Spent in Patient Care: 30 Coding Level of Care Code Acute Cutter And Edge Trimmer for g Fwd Diagnoses Hypertensive emergency I16.1 Acute exacerbation of chronic obstructive airways disease J44.1 Ascites R18.8 GERD without esophagitis K21.9 Anemia D64.9 ESRD on dialysis N18.6; Z99.2
--- NOTE | 2021-11-04 13:51 | CTR_ITS ---
PROCEDURE INFORMATION: Exam: CT Chest Without Contrast; Diagnostic Exam date and time: 11/04/2021 2:25 PM Age: 41 years old Clinical indication: Shortness of breath; Additional info: SOB TECHNIQUE: Imaging protocol: Diagnostic computed tomography of the chest without contrast. Radiation optimization: All CT scans at this facility use at least one of these dose optimization techniques: automated exposure control; mA and/or kV adjustment per patient size (includes targeted exams where dose is matched to clinical indication); or iterative reconstruction. COMPARISON: CT chest con [id number] 09/01/2021 1:31 PM RADIATION DOSE METRICS: Total DLP (mGy-cm): 585.75 FINDINGS: Lungs: Bibasilar atelectasis. Calcified granulomas noted in the right lower lobe. No consolidations. No masses. Pleural spaces: Small volume pleural effusions. No pneumothorax. Heart: Coronary artery calcifications present. Cardiomegaly. Small volume pericardial effusion. Lymph nodes: No enlarged lymph nodes. Vasculature: No aortic aneurysm. Intraperitoneal space: Small volume upper abdominal ascites. Bones/joints: Unremarkable. No acute fracture. Soft tissues: Unremarkable. CT/CT chest con [id number] IMPRESSION: 1. Small volume bilateral pleural effusions with bibasilar atelectasis. 2. Small volume pericardial effusion and cardiomegaly. 3. Small volume upper abdominal ascites.
[2021-11-04] MEDS: hyDRALAzine 50 mg Tablet 100 MG PO ×2 (15:02→20:22)
[2021-11-04 20:35] LABS: Glucose Point of Care 146 mg/dL (70-110)
[2021-11-05] VITALS (25 sets, daily range): BP systolic 99–144; BP diastolic 42–84; PULSE 60–71; RESP 11–35; TEMP 36.5–36.6; O2SAT 96–100
--- NOTE | 2021-11-05 00:33 | PC.NURSE ---
Pt remains a sallow color. Pt intermittently breathing shallow with rates in the 30s. Pt awakened, and he denies any distress or pain.
--- NOTE | 2021-11-05 00:54 | PC.NURSE ---
Pt now laying on his side, respiratory rate 14-18, normal depth.
[2021-11-05] MEDS: heparin 5,000 unit/mL INJ 1 mL 5000 UNIT SUBCUT (03:37)
[2021-11-05 06:23] LABS: Basophils # 0.1 10^3/uL (0.0-0.1); Basophils % 0.8 %; Eosinophils # 0.1 10^3/uL (0.0-0.8); Eosinophils % 1.5 %; Hemoglobin 8.3 g/dL (11.7-16.6); Lymphocytes # 1.1 10^3/uL (0.8-4.8); Lymphocytes % 18.5 %; Mean Corpuscular HGB Conc 31.9 g/dL (30.0-36.0); Mean Corpuscular Hemoglobin 26.4 pg (28.0-34.0); Mean Corpuscular Volume 82.8 fl (80-94); Mean Platelet Volume 9.7 fL (7.4-10.4); Monocytes # 0.4 10^3/uL (0.2-0.9); Monocytes % 6.7 %; Neutrophils # 4.29 10^3/uL (1.8-7.7); Neutrophils % 72.2 %; Nucleated Red Blood Cells % 0 %; Platelet Count 187 10^3/cmm (130-400); Red Blood Count 3.14 10^6/uL (4.1-5.3); Red Cell Distribution Width 18.7 % (12.1-15.1)
[2021-11-05 06:46] LABS: Anion Gap 17.3 (5-19); Blood Urea Nitrogen 47 mg/dL (6-20); Calcium 9.3 mg/dL (8.5-10.5); Carbon Dioxide 27 mmol/L (22-29); Chloride 93 mmol/L (98-107); Glomerular Filtration Rate 7.9 mL/min (90-130); Glucose 94 mg/dL (65-115); Osmolality Calculated 288 mOsm/kg (285-295); Potassium 4.3 mmol/L (3.5-5.1); Sodium 133 mmol/L (136-145)
[2021-11-05 07:44] LABS: Glucose Point of Care 90 mg/dL (70-110)
[2021-11-05] MEDS: cloNIDine 0.1 mg Tablet 0.2 MG PO (09:01)
[2021-11-05] MEDS: amlodipine 10 mg Tablet PO (09:02)
[2021-11-05] MEDS: lisinopril 20 mg Tablet 40 MG PO (09:02)
[2021-11-05] MEDS: carvedilol 25 mg Tablet PO (09:03)
[2021-11-05] MEDS: minoxidil 10 mg Tablet PO (09:03)
[2021-11-05] MEDS: hyDRALAzine 50 mg Tablet 100 MG PO (09:04)
[2021-11-05] MEDS: isosorbide mononitrate ER 60 mg Tablet PO (09:05)
--- NOTE | 2021-11-05 09:34 | P.PN_ITS ---
Subjective Subjective: Mr. Gibbs is seen and examined on hemodialysis today. Tolerating therapy well. Blood pressure now up nicely controlled. Remains on BiPAP. Dialysis uneventful so far. Dialysis parameters reviewed in detail. Vitals/I&O/Wt Last Vital Signs Temp 97.7 F 11/05/21 04:00 Pulse 63 11/05/21 09:17 Resp 14 11/05/21 09:00 BP 135/66 11/05/21 09:01 Pulse Ox 100 11/05/21 09:17 11/04/21 11/05/21 11/05/21 22:59 06:59 14:59 Intake Total 590 / 964.2 120 / 1084.2 250 / 250 Balance 590 / 964.2 120 / 1084.2 250 / 250 Weight last 48 hrs Weight 75.16 kg Weight 73.89 kg Weight 73.9 kg Weight 79.832 kg Physical Exam Narrative: Constitutional: Awake, comfortable HEENT: Wet mucosa, no jvp, non icteric Lungs: Bilaterally clear without discernible wheeze or rales in all lung zones CVS: S1 S2, no murmurs Abdo: Soft, BS ok, distended belly Ext 4: Minimal edema, peripheral perfusion with no cyanosis Neurological: Grossly non-focal Data : 11/05/21 05:46 11/05/21 05:46 Micro: Microbiology 11/03/21 13:15 Blood Culture - Preliminary Blood NEGATIVE TO DATE 11/03/21 13:19 Blood Culture - Preliminary Blood NEGATIVE TO DATE A&P Assessment and plan (1) ESRD on dialysis: Status: Acute Plan 1. ESRD Seen on dialysis today 3K bath, ultrafiltration 4 L. Next session on while in house, can go to outpatient clinic tomorrow if discharged Dose medication for GFR less than 15 on dialysis 2. Hypertension Likely in part secondary to fluid overload either from dietary noncompliance or skipping dialysis. Better with UF Ultrafiltration with dialysis will help 3. Chronic ESRD issues This can be handled as an outpatient as part of standard monthly management including anemia, hyperphosphatemia, secondary hyperparathyroidism etc. Continue home medication Thank you for consultation, it is a pleasure to follow these cases with you Exam and interview performed with aid of bedside RN using telemedicine Time spent 20 min inc > 50% of time in face to face counseling Caden Salazar MD [facility] [phone] Attestations Medical Necessity Statement*: eval for ESRD Coding Level of Care Code Acute Mortician Helper for g Fwd Diagnoses ESRD on dialysis N18.6; Z99.2
--- NOTE | 2021-11-05 12:01 | P.DS_ITS ---
Discharge Providers Date of Admission: 11/03/21 13:11 Date of Discharge: November 05, 2021 Attending Provider at Admission: Emanuel Nation MD Attending Provider at Discharge: Emanuel Nation MD Primary Care Provider: Mal Peres DO Diagnoses at Discharge Discharge Diagnosis (1) ESRD on dialysis: Status: Acute Reason for Visit Reason for Visit: sob Hospital Course Hospital Course 41-year-old male who was admitted to the hospital for management of hypertensive emergency, shortness of breath despite attending his dialysis 3 times a week. Patient is stating that he was recently camping, has started being compliant with his BiPAP and dialysis schedule but despite all that he started experiencing worsening of shortness of breath. In the ER he was diagnosed with hypertensive emergency required nitro drip, he got admitted to the ICU. After dialysis his blood pressure and shortness of breath improved. He was dialyzed on 11/05 as well, his blood pressure improved nitro drip has been turned off since 11/04. He has remained on BiPAP at night. He is currently being discharged on his current regimen. Counseled him to stay compliant with his BiPAP at night and dialysis schedule. I am taking liberty to copy paste a very detailed discharge note from previous visit which would help understanding his underlying disease Discharge course by Dr. Amin patient was admitted for hypertensive emergency with his pressure being 258/166 on admission.? He was also tachycardic and BNP was 48,000.? Patient was placed on a nitroglycerin drip and then transitioned over to his home medications.? Patient also missed his dialysis appointment on Thursday prior to coming in.? Patient was also emergently dialyzed.? Blood pressure remained okay for about a day and then he started getting hypertensive again.? It was noted that patient was drinking energy drinks and eating fast food from [email or web address] and [employer] that was being brought to him by family.? At that point patient was placed on a strict fluid and fluid restriction for foods from the outside.? WE recommended h im to have hospital food.? Patient also had large volume ascites for which paracentesis was ordered but could not be done initially for not having good ultrasonic window and ultimately patient refusing at the end.? During hospital stay hemoglobin also dropped to 7.1.? Level was repeated and it remained low and therefore blood transfusion was ordered.? Received 2 units of packed RBC total.? Hemoglobin 8.5.? Iron studies were also done.? FOBT was ordered but result is pending.? There is no hematochezia present.? There is no melena present.? Patient was ordered IV iron along with Epogen by nephrology.? CT chest was also completed during this hospital stay which did show a questionable pneumonia.? Procalcitonin was elevated at 2.58.? Patient was covered with ceftriaxone and azithromycin.? He is to complete 5 days of that.? He also received Solu-Medrol 40 daily which will be tapered with prednisone.? He had quite a few dialysis sessions while here a total of 13 to 15 L of fluid was removed.? Day of discharge patient again went for paracentesis and this time they were able to remove 5 L of fluid.? The fluid has been sent for cytology.? Patient also had a pulmonology appointment day before discharge but since he was in the hospital he could not make it.? Pulmonology was requested to see him as an inpatient since he was still short of breath and requiring the use of BiPAP.? Pulmonary critical care suggested to do a complete work-up of secondary hypertension for which renin aldosterone, metanephrines were ordered.? Cortisol was also ordered.? Patient is going to follow-up outpatient with pulmonology to go over these results and for further management.? Patient and the patient have been extensively counseled on being compliant to diet recommendations and to avoid fast food and energy drinks.? Patient's hydralazine was increased to 75 3 times daily..? Patient will be given a prescription for CBC to be checked as an outpatient in 1 week.? He is also to follow-up with pulmonology outpatient within a week of discharge.? He will also get a prescription for doing pulmonary function testing outpatient.? Patient also qualified for BiPAP during hospital stay.? Due to patient's recurring ascites requiring heart failure exacerbation with pulmonary edema and fluid overload patient will need BiPAP at nighttime.? He is to wear BiPAP at nighttime at the settings of 16/8 and he has 3 little nasal cannula oxygen during the day.? The above cannot be achieved with a CPAP.? Patient was discharged home to follow-up with pulmonology and his PCP. Physical Exam Narrative: Patient looks euvolemic Awake and alert On BiPAP Multiple bug bites on his abdomen No signs of cellulitis Venous stasis dermatitis No active signs of he is awake and alert Nonfocal neuro exam Currently on BiPAP no sign of fluid overload Discharge Data Studies Completed and Pending Completed Studies During Hospitalization Category Date Time Status CT chest wo con [id number] Routine Cat Scan 11/04/21 13:51 Completed XR chest 1V portable [id number] Urgent Exams 11/03/21 11:02 Completed Pending at discharge Category Date Time Status Blood Culture Stat Lab 11/03/21 13:15 Results Radiology Impressions Chest X-Ray 11/03/21 11:02 IMPRESSION: 1. Patchy hazy opacities throughout the chest bilaterally more prominent in the lower chest. This is suspicious for pneumonia (including COVID [address] to better characterize if clinically warranted. 2. Stable cardiomegaly. Chest CT 11/04/21 13:51 IMPRESSION: 1. Small volume bilateral pleural effusions with bibasilar atelectasis. 2. Small volume pericardial effusion and cardiomegaly. 3. Small volume upper abdominal ascites. Laboratory Results WBC 6.0 10^3/uL (4.0-10.0) 11/05/21 05:46 RBC 3.14 10^6/uL (4.1-5.3) L 11/05/21 05:46 Hgb 8.3 g/dL (11.7-16.6) L 11/05/21 05:46 Hct 26.0 % (42.0-52.0) L 11/05/21 05:46 MCV 82.8 fl (80-94) 11/05/21 05:46 MCH 26.4 pg (28.0-34.0) L 11/05/21 05:46 MCHC 31.9 g/dL (30.0-36.0) 11/05/21 05:46 RDW 18.7 % (12.1-15.1) H 11/05/21 05:46 Plt Count 187 10^3/cmm (130-400) 11/05/21 05:46 MPV 9.7 fL (7.4-10.4) 11/05/21 05:46 Neut % (Auto) 72.2 % 11/05/21 05:46 Lymph % (Auto) 18.5 % 11/05/21 05:46 [place] % (Auto) 6.7 % 11/05/21 05:46 Eos % (Auto) 1.5 % 11/05/21 05:46 Baso % (Auto) 0.8 % 11/05/21 05:46 Neut # (Auto) 4.29 10^3/uL (1.8-7.7) 11/05/21 05:46 Lymph # (Auto) 1.1 10^3/uL (0.8-4.8) 11/05/21 05:46 [place] # (Auto) 0.4 10^3/uL (0.2-0.9) 11/05/21 05:46 Eos # (Auto) 0.1 10^3/uL (0.0-0.8) 11/05/21 05:46 Baso # (Auto) 0.1 10^3/uL (0.0-0.1) 11/05/21 05:46 Nucleated RBC % (auto) 0 % 11/05/21 05:46 Nucleated RBCs # 0.0 /100WBC 11/05/21 05:46 Specimen Type Arterial 11/03/21 11:25 Sample Site Radial, right 11/03/21 11:25 ABG pH 7.43 (7.35-7.45) 11/03/21 11:25 ABG pCO2 39.4 mmHg (35-45) 11/03/21 11:25 ABG pO2 73.7 mmHg (80.0-100.0) L 11/03/21 11:25 ABG HCO3 26.4 mmol/L (22-26) H 11/03/21 11:25 ABG Base Excess 2.0 mmol/L (-2.0-2.0) 11/03/21 11:25 Alexei Test Pos 11/03/21 11:25 Hematocrit 31.0 % (42-52) L 11/03/21 11:25 Hgb O2 Saturation 92.4 % (95-100) L 11/03/21 11:25 Carboxyhemoglobin 2.5 %THgb (0.4-20.1) 11/03/21 11:25 Methemoglobin 1.0 % (0.4-1.5) 11/03/21 11:25 Total Hemoglobin 10.1 g/dL (14-18) L 11/03/21 11:25 O2 Delivery Device Nc 11/03/21 11:25 FiO2 3.0 % 11/03/21 11:25 Dredge Pump Operator ID Rc 11/03/21 11:25 Sodium 133 mmol/L (136-145) L 11/05/21 05:46 Potassium 4.3 mmol/L (3.5-5.1) 11/05/21 05:46 Chloride 93 mmol/L (98-107) L 11/05/21 05:46 Carbon Dioxide 27 mmol/L (22-29) 11/05/21 05:46 Anion Gap 17.3 (5-19) 11/05/21 05:46 BUN 47 mg/dL (6-20) H 11/05/21 05:46 Creatinine 7.7 mg/dL (0.7-1.2) H* 11/05/21 05:46 GFR Calculation 7.9 mL/min (90-130) L 11/05/21 05:46 Glucose 94 mg/dL (65-115) 11/05/21 05:46 POC Glucose 90 mg/dL (70-110) 11/05/21 07:42 Calculated Osmolality 288 mOsm/kg (285-295) 11/05/21 05:46 Lactic Acid 0.4 mmol/L (0.5-2.2) L 11/03/21 13:15 Calcium 9.3 mg/dL (8.5-10.5) 11/05/21 05:46 Magnesium 1.9 mg/dL (1.7-2.3) 11/04/21 05:12 Total Bilirubin 0.8 mg/dL (0.15-1.2) 11/03/21 11:15 AST 11 U/L (0-40) 11/03/21 11:15 ALT 6 U/L (0-41) 11/03/21 11:15 Alkaline Phosphatase 145 IU/L (40-130) H 11/03/21 11:15 Troponin T Baseline 65 ng/L (0-15) H 11/03/21 11:15 Troponin T 120 Minute 57.64 ng/L (0-15) H 11/03/21 13:15 Delta Troponin T -7.36 ABS# (0-10) L 11/03/21 13:15 Troponin T Hi Sens 6Hr 50.25 ng/L (0-15) H 11/03/21 17:05 Troponin T Hi Sens 6Hr Delta -14.75 ng/L (0-12) L 11/03/21 17:05 NT-Pro-B Natriuret Pep > 57219 pg/mL (0-125) H 11/03/21 11:15 Total Protein 7.8 g/dL (6.6-8.7) 11/03/21 11:15 Albumin 4.2 g/dL (3.5-5.2) 11/03/21 11:15 Globulin 3.6 g/dL (1.3-4.6) 11/03/21 11:15 Coronavirus 229E (PCR) Not detected (NOT DETECT) 11/03/21 12:55 SARS-CoV-2 (PCR) Not detected (NOT DETECT) 11/03/21 12:55 Vitals Last Vital Signs Temp 97.7 F 11/05/21 04:00 Pulse 63 11/05/21 09:17 Resp 14 11/05/21 09:00 BP 135/66 11/05/21 09:01 Pulse Ox 100 11/05/21 09:17 Discharge Plan Discharge Patient Disposition: Home Condition: Stable Prescriptions: Continued aspirin 81 mg tablet,delayed release (DR/EC) 81 mg PO DAILY Qty: 30 4RF pantoprazole 40 mg tablet,delayed release (DR/EC) 40 mg PO DAILY Qty: 30 4RF Incruse Ellipta 62.5 mcg/actuation blister with device 1 inh INHALATION DAILY Qty: 30 2RF albuterol sulfate [ProAir HFA] 90 mcg/actuation HFA aerosol inhaler 2 puff INHALATION QID PRN (Reason: Shortness Of Breath) Qty: 2 4RF cyclobenzaprine 10 mg tablet 10 mg PO Q12H PRN (Reason: muscle spasm) Qty: 30 2RF amlodipine 10 mg tablet 10 mg PO DAILY 30 Days Qty: 30 0RF Xifaxan 550 mg tablet 550 mg PO BID 0RF atorvastatin 40 mg Tablet 40 mg PO BEDTIME Qty: 30 0RF clopidogrel 75 mg Tablet 75 mg PO DAILY Qty: 30 0RF carvedilol 25 mg tablet 25 mg PO BID 30 Days Qty: 60 0RF isosorbide mononitrate 60 mg tablet extended release 24 hr 60 mg PO DAILY 0RF fluticasone propionate 50 mcg/actuation spray,suspension 2 spray INTRANASAL DAILY PRN (Reason: Allergy Symptoms) 0RF minoxidil 10 mg Tablet 10 mg PO BID Qty: 180 0RF clonazepam 0.5 mg tablet 1 mg PO TID Qty: 90 0RF clonidine HCl 0.2 mg tablet 0.2 mg PO TID 0RF Seroquel 25 mg tablet 25 mg PO BEDTIME 0RF nitroglycerin 0.4 mg Tablet, Sublingual 0.4 mg SUBLINGUAL Q5M PRN (Reason: Chest Pain) 0RF Rx Instructions: do not exceed 3 doses per episode lisinopril 40 mg Tablet 40 mg PO DAILY 0RF lactulose 20 gram/30 mL Solution 10 g PO TID PRN (Reason: Constipation) 0RF Auryxia 210 mg iron Tablet 420 mg PO TID 0RF Rx Instructions: administer with a meal albuterol sulfate 2.5 mg /3 mL (0.083 %) solution for nebulization 2.5 mg inhalation BID PRN (Reason: Shortness Of Breath) 0RF hydralazine 50 mg Tablet 75 mg PO TID Qty: 0 0RF Discharge Orders: Discharge Order (Routine); Ordered 11/05/21 Ordered By: Emanuel Nation Referrals: Mal Peres DO [Primary Care Provider] - 4-7 days Discharge Diet: Cardiac Discharge Activity: Increase activity as tolerated Patient Instructions: Opioid Safety Discharge Attestations Time Spent in Discharge Care*: less than 30 min Status at Discharge: Cognitive status at discharge: cognitively intact , Behavioral status at discharge: cooperative , Quality Metrics Clinical Quality Measures [ No reported AMI, CVA or VTE this stay] Coding Level of Care Code Acute Chg FW DC note Diagnoses ESRD on dialysis N18.6; Z99.2
--- NOTE | 2021-11-05 12:14 | PC.CHAP ---
Pastoral Care Encounter/Spiritual Assessment Type of Contact [] Declined on site nurse visit [] Patient/Family/Request visit [] Outpatient visit [] Follow-up visit [] Physician referral [] Code/Alert [x] Routine visit [] Staff referral [] Actively dying [] Patient sleeping [] Family support [] [] Out of room [] Palliative care [] [x] Receiving care in room [] Pre-surgical visit [] Trauma [] Long length of stay [x] ICU visit [] Other: Relational/Emotional Strength [] Patient feels connected with others/family/visitors/staff [] Distress [] Loneliness/isolation [] Abandonment Spirituality of Patient [] Person of Ct [] Attends Mormon of their Ct [] Believes in Prayer [] Reads Bible or Evangelical materials [] There are Spiritual issues to be addressed Range Operator Interventions [x] Prayer [] Active listening [] Non-anxious presence [] Spiritual/emotional support [] Crisis/trauma care [] Spiritual counseling [] Bereavement support [] Provided bereavement packet [] Provided Bible/devotional materials [] Provided toy/stuffed animal, coloring book to patient or family member [] Provided Communion [] Anointing/[place] [] Salvation [x] Completed spiritual assessment [] Other: Impact on Illness or Injury [] Angry [] Fearful [] Anxious [] Often cries [] Exhaustion [] Unable to work [] Unable to attend advent [] Unable to walk/stand [] Unable to read [] Unable to drive [] Unable to eat/drink [] Unable to sleep [] Unable to be with family [] Patient intubated [] Other: Summary Time spent with patient
--- NOTE | 2021-11-05 12:38 | PC.NURSE ---
Dr. Nation gave t.o. to leave IV in for outpatient dialysis appointment immediately after D/C from ICU
--- NOTE | 2021-11-05 13:04 | PC.NURSE ---
Patient signed d/c paperwork, all d/c instructions educated to patient. IV left in for out patient thoracentesis per t.o. from dr. baker. patient taken to out patient surgery registration by ICU staff, care then handed over to registration and out patient staff
== END 2021-11-05 13:08 | disposition home or self-care (01) | DRG 304 ==
LOC: ER 13:05 → ICU 13:23
PROVIDERS: Admitting Provider Internal Medicine; Emergency Provider Emergency Medicine; PCP Family Medicine; Visit Provider Internal Medicine
DX: I16.1 Hypertensive emergency (principal); N18.6 End stage renal disease; I50.32 Chronic diastolic (congestive) heart failure; J44.1 Chronic obstructive pulmonary disease with (acute) exacerbation; J96.11 Chronic respiratory failure with hypoxia; R18.8 Other ascites; I13.2 Hypertensive heart and chronic kidney disease with heart failure and with stage 5 chronic kidney disease, or end stage renal disease; Z99.2 Dependence on renal dialysis; E78.5 Hyperlipidemia, unspecified; D63.1 Anemia in chronic kidney disease; I25.10 Atherosclerotic heart disease of native coronary artery without angina pectoris; G89.29 Other chronic pain; Z86.16 Personal history of COVID-19; M51.36 Other intervertebral disc degeneration, lumbar region; F41.1 Generalized anxiety disorder; F41.0 Panic disorder [episodic paroxysmal anxiety]; Z86.711 Personal history of pulmonary embolism; I27.20 Pulmonary hypertension, unspecified; K21.9 Gastro-esophageal reflux disease without esophagitis; E21.3 Hyperparathyroidism, unspecified; Z79.891 Long term (current) use of opiate analgesic; Z79.02 Long term (current) use of antithrombotics/antiplatelets; Z79.51 Long term (current) use of inhaled steroids; Z79.82 Long term (current) use of aspirin; F17.210 Nicotine dependence, cigarettes, uncomplicated
CPT/HCPCS: 36415; 36416; 36600; 71045; 71250; 80048; 80053; 82805; 82962; 83605; 83735; 83880; 84484; 85025; 87040; 87635; 90935; 93005; 94640; 94660; 96365; 96367; 96372; 96375; 99291; J0696; J1644; J2270; J2405; J2930; J3490; Q3014

== ENCOUNTER 2021-11-05 13:06 | Day surgery (SDC) | payer MEDICARE, MEDICAID, SELFPAY ==
--- NOTE | 2021-11-05 | US_ITS ---
WS: [id number] ULTRASOUND-GUIDED PARACENTESIS CLINICAL INFORMATION: ascites COMPARISON: None. FINDINGS: Minimal abdominal ascites. Paracentesis not performed. US/US abdomen lmt fluid [id number] IMPRESSION: Minimal abdominal ascites. Paracentesis not performed.
--- NOTE | 2021-11-05 13:13 | US_ITS ---
WS: [id number] ULTRASOUND-GUIDED PARACENTESIS CLINICAL INFORMATION: ascites COMPARISON: None. FINDINGS: Minimal abdominal ascites. Paracentesis not performed.
[2021-11-05 13:19] VITALS: BP 111/64; PULSE 62; RESP 16; TEMP 36.3; O2SAT 98
== END 2021-11-05 13:45 | disposition home or self-care (01) ==
LOC: GILAB 13:08
PROVIDERS: Radiology Diagnostic Radiology; PCP Family Medicine; Visit Provider Internal Medicine Nephrology
DX: R18.8 Other ascites (principal)
CPT/HCPCS: 49083; 76705

== ENCOUNTER 2021-11-22 10:27 | Inpatient (IN) | payer MEDICARE, MEDICAID, SELFPAY ==
[2021-11-22] VITALS (46 sets, daily range): BP systolic 145–203; BP diastolic 72–119; PULSE 71–101; RESP 15–24; TEMP 36.6–37.4; O2SAT 95–98; BMI 21.7
--- NOTE | 2021-11-22 11:35 | ECG_ITS ---
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 Measurements Intervals [place] Rate: 90 P: 71 VA: 199 QRS: 72 QRSD: 109 T: 79 QT: 378 QTc: 463 Interpretive Statements SINUS RHYTHM Compared to ECG 11/03/2021 15:14:30 Ectopic atrial rhythm no longer present First degree AV block no longer present Left-axis deviation no longer present Prolonged QT interval no longer present Electronically Signed On 11-22-2021 20:29:59 CDT by Brijesh King M.D. [id number]
--- NOTE | 2021-11-22 11:55 | XR_ITS ---
WS: [id number] XR chest 2V* [id number] REASON FOR EXAM: short of breath FINDINGS: There is cardiomegaly. Compared to the examination of 11/03/2021, the most recent examination, there is significant decrease i n the interstitial reticular lung opacities. Reticular interstitial opacities persist in the referral left midlung and left lower lung. There is also a small area in the right lower lung similar in appe arance. There are bilateral pleural effusions, small larger on the left. XR/XR chest 2V* [id number] IMPRESSION: Interval change with residual abnormalities as above.
--- NOTE | 2021-11-22 11:56 | ED_ITS ---
Documented by User: Danielle Noble PA-C 11/22/21 14:13 HPI - SOB/Dyspnea General: Chief Complaint: Shortness of Breath/Dyspnea Stated Complaint: panic attack Time Seen by Provider: 11/22/21 11:47 Source: patient Mode of arrival: ambulatory Limitations: no limitations History of Present Illness: HPI Narrative: 41-year-old male with a significant medical history including end-stage kidney disease, anxiety, hypertension, chronic pain, presents to the ER today for increasing shortness of breath and not feeling well. Patient reports he has not been feeling well for couple of days and became very anxious last night. He reports increased shortness of breath with anxiety. He reports he was due for dialysis today but did not go because he did not feel well. Patient denies a cough or fever. Patient just describes increased fatigue. Patient reports he is never missed a dialysis appointment before. Patient denies any sick contacts. Patient reports he did not sleep well last night due to shortness of breath. Associated symptoms: Deny abdominal pain, chest pain, fever(s), nausea, palpitations or vomiting Review of Systems General: Reports: 10 or more systems reviewed and unremarkable except in HPI and below Const: Reports: fatigue, malaise and change in sleep pattern; Denies: fever(s), chills or body aches ENMT: Denies: throat pain, nasal discharge or nasal congestion Card: Denies: chest pain, palpitations or edema Resp: Reports: dyspnea; Denies: productive cough or wheezing GI: Denies: abdominal pain, nausea, vomiting or diarrhea PFS ED PFSH: Medical History (Updated 11/22/21 @ 13:32 by Imani Seo DO) (HFpEF) heart failure with preserved ejection fraction Abdominal ascites Abdominal distention Abnormality of rib determined by X-ray Acute and chronic respiratory failure with hypoxia Acute diastolic CHF (congestive heart failure) Anasarca Anemia Anxiety with depression Arteriovenous fistula for hemodialysis in place, secondary Ascites Atherosclerosis of coronary artery Chronic abdominal pain Chronic respiratory failure Congestive heart failure COPD (chronic obstructive pulmonary disease) COPD (chronic obstructive pulmonary disease) COVID 05/25 Current smoker Degenerative disc disease, lumbar End-stage renal disease needing dialysis End-stage renal disease on hemodialysis ESRD on dialysis ESRD on dialysis Generalized anxiety disorder with panic attacks GERD without esophagitis Gross hematuria Hemoptysis Hepatomegaly Hyperkalemia Hypertension Hypertensive emergency Ileus PHT (pulmonary hypertension) Pneumonia Pulmonary embolism 09/21 Inconclusive for very tiny peripheral LEFT lower lobe pulmonary artery sub segmental emboli versus poor opacification. Right heart failure with reduced right ventricular function Smoking addiction Transaminitis Urethral stricture Surgical History H/O hand surgery Amputation right 2&3 fingers 2017 History of adenoidectomy Stented coronary artery Family History Father No problems noted. Other Hypertension Social History Smoking and tobacco status: current every day smoker cigarettes Packs smoked per day: 1.5 Years cigarettes smoked: 21 [ Other cigarette details: started age 20, currently 0.5ppd ] Alcohol intake: never Marital status: Number of children: 3 Current occupational status: disabled History of recent travel: No Physical Exam Const: COMMON NORMALS: no acute distress and patient oriented x3 GENERAL APPEARANCE: disheveled, frail appearing and appears older than stated age NUTRITIONAL APPEARANCE: cachectic ORIENTATION/CONSCIOUSNESS: Yes awake Resp: COMMON NORMALS: clear to auscultation bilaterally EFFORT & INSPECTION: Yes able to speak in complete sentences, Yes tachypneic, No respiratory distress, No retractions and No audible wheezes AUSCULTATION: clear to auscultation bilaterally, no crackles, no rales, no rhonchi and no wheezes Cardio: COMMON NORMALS: regular rate and regular rhythm RATE: regular rate RHYTHM: regular rhythm Extremity: NARRATIVE EXTREMITY EXAM: chronic weakness; pt in wheelchair Neuro: COMMON NORMALS: patient oriented x3 Psych: COMMON NORMALS: Normal thought process present and cooperative THOUGHT PROCESS: Normal thought process present Skin: COMMON NORMALS: no rashes or lesions noted and no wounds GENERAL SKIN EXAM: no rashes or lesions noted Course ED course: 41-year-old male with a significant medical history including end- stage CKD, COPD, hypertension, chronic pain presents to the ER today for weakness and fatigue. Patient reports this is been going on several days. He reports last night he became very anxious and short of breath. He reports feeling like he cannot breathe and did not sleep well last night due to that. Patient denies a cough, fever, chills. Patient reports he was due for dialysis but missed it today due to not feeling well and came here instead. We will start with a chest x-ray and lab work. My concern is patient should have gone to dialysis as that is only going to make the situation worse. Patient is currently taking anxiety medications including clonazepam. Consultations: Consultation #1: I contacted [facility] dialysis [place] and they report they have no openings this afternoon to get patient in. He missed his appointment this morning. I spoke with Dr. Vázquez who will work on admitting patient for dialysis at the hospital. Time: 13:06 Consultation #2: Dr. Amin saw pt in VF and will admit pt to ICU9 for dialysis and a drip given elevated BPs and minimal improvement with recent dialysis sessions. Time: 13:18 Consultation #3: Dr. Seo notified and she will see him in ICU. Time: 13:23 Vital Signs: Vital signs: Vital Signs Temperature 98.7 F 11/22/21 14:48 Pulse Rate 82 11/22/21 14:48 Respiratory Rate 16 11/22/21 14:48 Blood Pressure 169/85 11/22/21 14:48 Pulse Oximetry 97 11/22/21 14:48 MDM - SOB/Dyspnea Medical Decision Making 41-year-old male with a significant medical history including end-stage CKD, COPD, hypertension, chronic pain presents to the ER today for weakness and fatigue. Patient reports this is been going on several days. He reports last night he became very anxious and short of breath. He reports feeling like he cannot breathe and did not sleep well last night due to that. Patient denies a cough, fever, chills. Patient reports he was due for dialysis but missed it today due to not feeling well and came here instead. We will start with a chest x-ray and lab work. My concern is patient should have gone to dialysis as that is only going to make the situation worse. Patient is currently taking anxiety medications including clonazepam. Patient's chest x-ray appears slightly worse than the last 1. There shows to be some increased fluid. Patient's labs are about the same however patient does need dialysis. I contacted [facility] dialysis and patient missed his appointment this morning and they have no room to get him in this afternoon. Spoke with Dr. Vázquez who will work on admitting patient for dialysis here. Lab Data : 11/22/21 12:08 11/22/21 12:08 Labs/Radiology: Radiology Impressions Chest X-Ray 11/22/21 11:55 IMPRESSION: Interval change with residual abnormalities as above. Laboratory Results WBC 6.2 10^3/uL (4.0-10.0) 11/22/21 12:08 RBC 3.45 10^6/uL (4.1-5.3) L 11/22/21 12:08 Hgb 9.5 g/dL (11.7-16.6) L 11/22/21 12:08 Hct 29.9 % (42.0-52.0) L 11/22/21 12:08 MCV 86.7 fl (80-94) 11/22/21 12:08 MCH 27.5 pg (28.0-34.0) L 11/22/21 12:08 MCHC 31.8 g/dL (30.0-36.0) 11/22/21 12:08 RDW 19.3 % (12.1-15.1) H 11/22/21 12:08 Plt Count 155 10^3/cmm (130-400) 11/22/21 12:08 MPV 9.2 fL (7.4-10.4) 11/22/21 12:08 Neut % (Auto) 78.4 % 11/22/21 12:08 Lymph % (Auto) 8.6 % 11/22/21 12:08 [place] % (Auto) 7.3 % 11/22/21 12:08 Eos % (Auto) 4.7 % 11/22/21 12:08 Baso % (Auto) 0.8 % 11/22/21 12:08 Neut # (Auto) 4.86 10^3/uL (1.8-7.7) 11/22/21 12:08 Lymph # (Auto) 0.5 10^3/uL (0.8-4.8) L 11/22/21 12:08 [place] # (Auto) 0.5 10^3/uL (0.2-0.9) 11/22/21 12:08 Eos # (Auto) 0.3 10^3/uL (0.0-0.8) 11/22/21 12:08 Baso # (Auto) 0.1 10^3/uL (0.0-0.1) 11/22/21 12:08 Nucleated RBC % (auto) 0 % 11/22/21 12:08 Nucleated RBCs # 0.0 /100WBC 11/22/21 12:08 Sodium 133 mmol/L (136-145) L 11/22/21 12:08 Potassium 4.9 mmol/L (3.5-5.1) 11/22/21 12:08 Chloride 95 mmol/L (98-107) L 11/22/21 12:08 Carbon Dioxide 25 mmol/L (22-29) 11/22/21 12:08 Anion Gap 17.9 (5-19) 11/22/21 12:08 BUN 38 mg/dL (6-20) H 11/22/21 12:08 Creatinine 7.4 mg/dL (0.7-1.2) H* 11/22/21 12:08 GFR Calculation 8.3 mL/min (90-130) L 11/22/21 12:08 Glucose 76 mg/dL (65-115) 11/22/21 12:08 Calculated Osmolality 284 mOsm/kg (285-295) L 11/22/21 12:08 Calcium 9.1 mg/dL (8.5-10.5) 11/22/21 12:08 Total Bilirubin 0.8 mg/dL (0.15-1.2) 11/22/21 12:08 AST 17 U/L (0-40) 11/22/21 12:08 ALT < 5 U/L (0-41) 11/22/21 12:08 Alkaline Phosphatase 140 IU/L (40-130) H 11/22/21 12:08 Total Protein 7.2 g/dL (6.6-8.7) 11/22/21 12:08 Albumin 3.9 g/dL (3.5-5.2) 11/22/21 12:08 Globulin 3.3 g/dL (1.3-4.6) 11/22/21 12:08 Discharge Plan Discharge Patient Disposition: Admitted As Inpatient Admit Provider: Brigitte Amin Clinical Impression: CKD (chronic kidney disease) stage 5, GFR less than 15 ml/min, Pleural effusion, Hypertension Condition: Stable Coding Level of Care Code ED 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 Exam Detailed Documented by User: Pato Rivera DO 11/22/21 16:58 HPI - SOB/Dyspnea General: Chief Complaint: Shortness of Breath/Dyspnea Stated Complaint: panic attack Time Seen by Provider: 11/22/21 11:47 PFSH ED PFSH: Medical History (Updated 11/22/21 @ 13:32 by Imani Seo DO) (HFpEF) heart failure with preserved ejection fraction Abdominal ascites Abdominal distention Abnormality of rib determined by X-ray Acute and chronic respiratory failure with hypoxia Acute diastolic CHF (congestive heart failure) Anasarca Anemia Anxiety with depression Arteriovenous fistula for hemodialysis in place, secondary Ascites Atherosclerosis of coronary artery Chronic abdominal pain Chronic respiratory failure Congestive heart failure COPD (chronic obstructive pulmonary disease) COPD (chronic obstructive pulmonary disease) COVID 05/25 Current smoker Degenerative disc disease, lumbar End-stage renal disease needing dialysis End-stage renal disease on hemodialysis ESRD on dialysis ESRD on dialysis Generalized anxiety disorder with panic attacks GERD without esophagitis Gross hematuria Hemoptysis Hepatomegaly Hyperkalemia Hypertension Hypertensive emergency Ileus PHT (pulmonary hypertension) Pneumonia Pulmonary embolism 09/21 Inconclusive for very tiny peripheral LEFT lower lobe pulmonary artery sub segmental emboli versus poor opacification. Right heart failure with reduced right ventricular function Smoking addiction Transaminitis Urethral stricture Surgical History H/O hand surgery Amputation right 2&3 fingers 2017 History of adenoidectomy Stented coronary artery Family History Father No problems noted. Other Hypertension Social History Smoking and tobacco status: current every day smoker cigarettes Packs smoked per day: 1.5 Years cigarettes smoked: 21 [ Other cigarette details: started age 20, currently 0.5ppd ] Alcohol intake: never Marital status: Number of children: 3 Current occupational status: disabled History of recent travel: No Course Vital Signs: Vital signs: Vital Signs Temperature 98.7 F 11/22/21 14:48 Pulse Rate 82 11/22/21 14:48 Respiratory Rate 16 07/22/22 14:48 Blood Pressure 169/85 11/22/21 14:48 Pulse Oximetry 97 11/22/21 14:48 MDM - SOB/Dyspnea Medical Decision Making 41-year-old male with a significant medical history including end-stage CKD, COPD, hypertension, chronic pain presents to the ER today for weakness and fatigue. Patient reports this is been going on several days. He reports last night he became very anxious and short of breath. He reports feeling like he cannot breathe and did not sleep well last night due to that. Patient denies a cough, fever, chills. Patient reports he was due for dialysis but missed it today due to not feeling well and came here instead. We will start with a chest x-ray and lab work. My concern is patient should have gone to dialysis as that is only going to make the situation worse. Patient is currently taking anxiety medications including clonazepam. Patient's chest x-ray appears slightly worse than the last 1. There shows to be some increased fluid. Patient's labs are about the same however patient does need dialysis. I contacted [facility] dialysis and patient missed his appointment this morning and they have no room to get him in this afternoon. Spoke with Dr. Vázquez who will work on admitting patient for dialysis here. Chart reviewed and patient discussed with midlevel. Agree with assessment and plan. Lab Data : 11/22/21 12:08 11/22/21 12:08 Labs/Radiology: Radiology Impressions Chest X-Ray 11/22/21 11:55
[2021-11-22 12:25] LABS: Basophils # 0.1 10^3/uL (0.0-0.1); Basophils % 0.8 %; Eosinophils # 0.3 10^3/uL (0.0-0.8); Eosinophils % 4.7 %; Hematocrit 29.9 % (42.0-52.0); Hemoglobin 9.5 g/dL (11.7-16.6); Lymphocytes # 0.5 10^3/uL (0.8-4.8); Lymphocytes % 8.6 %; Mean Corpuscular HGB Conc 31.8 g/dL (30.0-36.0); Mean Corpuscular Hemoglobin 27.5 pg (28.0-34.0); Mean Corpuscular Volume 86.7 fl (80-94); Mean Platelet Volume 9.2 fL (7.4-10.4); Monocytes # 0.5 10^3/uL (0.2-0.9); Monocytes % 7.3 %; Neutrophils # 4.86 10^3/uL (1.8-7.7); Neutrophils % 78.4 %; Nucleated Red Blood Cells % 0 %; Platelet Count 155 10^3/cmm (130-400); Red Blood Count 3.45 10^6/uL (4.1-5.3); Red Cell Distribution Width 19.3 % (12.1-15.1); White Blood Count 6.2 10^3/uL (4.0-10.0)
[2021-11-22 12:48] LABS: Alanine Aminotransferase < 5 U/L (0-41); Albumin Level 3.9 g/dL (3.5-5.2); Alkaline Phosphatase 140 IU/L (40-130); Anion Gap 17.9 (5-19); Aspartate Amino Transferase 17 U/L (0-40); Blood Urea Nitrogen 38 mg/dL (6-20); Calcium 9.1 mg/dL (8.5-10.5); Carbon Dioxide 25 mmol/L (22-29); Chloride 95 mmol/L (98-107); Globulin 3.3 g/dL (1.3-4.6); Glomerular Filtration Rate 8.3 mL/min (90-130); Glucose 76 mg/dL (65-115); Osmolality Calculated 284 mOsm/kg (285-295); Potassium 4.9 mmol/L (3.5-5.1); Sodium 133 mmol/L (136-145); Total Bilirubin 0.8 mg/dL (0.15-1.2); Total Protein 7.2 g/dL (6.6-8.7)
--- NOTE | 2021-11-22 13:29 | PM.CONSULT ---
Providers/Reason For Consult Consulting Physician/Specialty*: Imani Seo DO, telenephrology Reason for Consult*: ESRD Primary Care Provider: Mal Peres DO History of Present Illness History of Present Illness Mal Gibbs is a 41 year old male presented to ER for evaluation of dyspnea. Missed HD today. States he was too short of breath to go to dialysis. Medications/Allergies Home Medications Medication Instructions Recorded Confirmed Last Taken Type rifaximin 550 mg tablet (Xifaxan) 550 mg PO BID 06/10/21 11/03/21 11/02/21 History amlodipine 10 mg tablet 10 mg PO DAILY 30 Days #30 tab 07/16/21 11/03/21 11/02/21 Rx atorvastatin 40 mg tablet 40 mg PO BEDTIME #30 tab 07/25/21 11/03/21 11/02/21 Rx carvedilol 25 mg tablet 25 mg PO BID 30 Days #60 tab 07/25/21 11/03/21 11/02/21 Rx clopidogrel 75 mg tablet 75 mg PO DAILY #30 tab 07/25/21 11/03/21 11/02/21 Rx albuterol sulfate 90 mcg/actuation 2 puff INHALATION QID PRN #2 g 08/06/21 11/03/21 10/03/21 Rx aerosol inhaler (ProAir HFA) umeclidinium 62.5 mcg/actuation 1 inh INHALATION DAILY #30 ea 08/06/21 11/03/21 11/02/21 Rx blister powder for inhalation (Incruse Ellipta) fluticasone propionate 50 2 spray INTRANASAL DAILY PRN 08/12/21 11/03/21 10/03/21 History mcg/actuation nasal spray,suspension isosorbide mononitrate 60 mg 60 mg PO DAILY 08/12/21 11/03/21 11/02/21 History tablet,extended release 24 hr minoxidil 10 mg tablet 10 mg PO BID #180 tab 08/27/21 11/03/21 11/02/21 Rx clonazepam 0.5 mg tablet 1 mg PO TID #90 tab 08/28/21 11/03/21 11/02/21 Rx albuterol sulfate 2.5 mg INHALATION BID PRN 08/31/21 11/03/21 10/03/21 History hydralazine 50 mg tablet 75 mg PO TID #0 tab 09/06/21 11/03/21 11/02/21 Rx cyclobenzaprine 10 mg tablet 10 mg PO Q12H PRN #30 tab 09/11/21 11/03/21 10/03/21 Rx aspirin 81 mg tablet,delayed 81 mg PO DAILY #30 tab 09/12/21 11/03/21 11/02/21 Rx release pantoprazole 40 mg tablet,delayed 40 mg PO DAILY #30 tab 09/12/21 11/03/21 11/02/21 Rx release clonidine HCl 0.2 mg tablet 0.2 mg PO TID 11/03/21 11/03/21 11/02/21 History ferric citrate 210 mg iron tablet 420 mg PO TID 11/03/21 11/03/21 11/02/21 History (Auryxia) lactulose 20 gram/30 mL oral 10 g PO TID PRN 11/03/21 11/03/21 Unknown History solution lisinopril 40 mg tablet 40 mg PO DAILY 11/03/21 11/03/21 11/02/21 History nitroglycerin 0.4 mg sublingual 0.4 mg SUBLINGUAL Q5M PRN 11/03/21 11/03/21 Unknown History tablet quetiapine 25 mg tablet (Seroquel) 25 mg PO BEDTIME 11/03/21 11/03/21 11/02/21 History Allergies Allergy/AdvReac Type Severity Reaction Status Date / Time nifedipine Allergy KATERINY-Swell Verified 10/15/21 09:22 Lip/Tongue/Throat PFSH Acute PFSH: Medical History (Updated 11/22/21 @ 13:32 by Imani Seo DO) (HFpEF) heart failure with preserved ejection fraction Abdominal ascites Abdominal distention Abnormality of rib determined by X-ray Acute and chronic respiratory failure with hypoxia Acute diastolic CHF (congestive heart failure) Anasarca Anemia Anxiety with depression Arteriovenous fistula for hemodialysis in place, secondary Ascites Atherosclerosis of coronary artery Chronic abdominal pain Chronic respiratory failure Congestive heart failure COPD (chronic obstructive pulmonary disease) COPD (chronic obstructive pulmonary disease) COVID 05/25 Current smoker Degenerative disc disease, lumbar End-stage renal disease needing dialysis End-stage renal disease on hemodialysis ESRD on dialysis ESRD on dialysis Generalized anxiety disorder with panic attacks GERD without esophagitis Gross hematuria Hemoptysis Hepatomegaly Hyperkalemia Hypertension Hypertensive emergency Ileus PHT (pulmonary hypertension) Pneumonia Pulmonary embolism 09/21 Inconclusive for very tiny peripheral LEFT lower lobe pulmonary artery sub segmental emboli versus poor opacification. Right heart failure with reduced right ventricular function Smoking addiction Transaminitis Urethral stricture Surgical History H/O hand surgery Amputation right 2&3 fingers 2017 History of adenoidectomy Stented coronary artery Family History Father No problems noted. Other Hypertension Social History Smoking and tobacco status: current every day smoker cigarettes Packs smoked per day: 1.5 Years cigarettes smoked: 21 [ Other cigarette details: started age 20, currently 0.5ppd ] Alcohol intake: never Marital status: Number of children: 3 Current occupational status: disabled History of recent travel: No Vitals/I&O/Wt Last Vital Signs Temp 98.8 F 11/22/21 13:19 Pulse 78 11/22/21 13:19 Resp 16 11/22/21 13:19 BP 169/85 11/22/21 13:19 Pulse Ox 96 11/22/21 13:19 Weight last 48 hrs Weight 74.843 kg Physical Exam Const: COMMON NORMALS: no acute distress; negative for alert GENERAL APPEARANCE: lethargic ORIENTATION/CONSCIOUSNESS: Yes lethargic Extremity: NARRATIVE EXTREMITY EXAM: left forearm mature AVF - no signs of infection OTHER: 1+ edema Neuro: SENSORIUM/ORIENTATION: No alert and Yes lethargic Data : 11/22/21 12:08 11/22/21 12:08 CXR: Radiologist's impression: There is cardiomegaly. Compared to the examination of 11/03/2021, the most recent examination, there is significant decrease in the interstitial reticular lung opacities. Reticular interstitial opacities persist in the referral left midlung and left lower lung. There is also a small area in the right lower lung similar in appearance. There are bilateral pleural effusions, small larger on the left. A&P Assessment and plan (1) End stage renal disease: seen via telemedicine with assistance of RN at bedside Status: Acute Plan 1. ESRD 2. Severe hypertension will improve with fluid removal at dialysis 3. Volume overload 4. Anemia Recommend: HD today. 4h 4L UF 2K bath. No IVs, BPs, blood draws lefr arm Coding Level of Care Code Acute Group Work Program Director for Chg Fwd Diagnoses End stage renal disease N18.6
--- NOTE | 2021-11-22 16:16 | P.HP_ITS ---
Providers/Chief Complaint Admitting Physician: Brigitte Amin MD Primary Care Provider: Mal Peres DO Chief Complaint: panic attack History of Present Illness Mal Gibbs is a 41 year old male well-known to the hospital presenting to the hospital today for missing dialysis because dialysis center was closed. He states he was having shortness of breath which is worsening and not feeling well overall. He has not been feeling well for the last couple of days and became very anxious last night. He was unsure what is not going on. He was due for dialysis today but did not go because he was not feeling well. Also incidentally the dialysis center was closed. He has increased fatigue. He did not sleep well last night due to shortness of breath. Denies any chest pain, abdominal pain, diarrhea, constipation, nausea, vomiting, headache, cough at this time. ED course:On arrival blood pressure 209/120. Chest x-ray shows pulmonary edema. Medications/Allergies Home Medications Medication Instructions Recorded Confirmed Last Taken Type rifaximin 550 mg tablet (Xifaxan) 550 mg PO BID 06/10/21 11/22/21 11/21/21 History amlodipine 10 mg tablet 10 mg PO DAILY 30 Days #30 tab 07/16/21 11/22/21 11/21/21 08:00 Rx atorvastatin 40 mg tablet 40 mg PO BEDTIME #30 tab 07/25/21 11/22/21 11/02/21 Rx carvedilol 25 mg tablet 25 mg PO BID 30 Days #60 tab 07/25/21 11/22/21 11/21/21 21:00 Rx clopidogrel 75 mg tablet 75 mg PO DAILY #30 tab 07/25/21 11/22/21 11/02/21 Rx albuterol sulfate 90 mcg/actuation 2 puff INHALATION QID PRN #2 g 08/06/21 11/22/21 10/03/21 Rx aerosol inhaler (ProAir HFA) umeclidinium 62.5 mcg/actuation 1 inh INHALATION DAILY #30 ea 08/06/21 11/22/21 11/21/21 Rx blister powder for inhalation (Incruse Ellipta) fluticasone propionate 50 2 spray INTRANASAL DAILY PRN 08/12/21 11/22/21 10/03/21 History mcg/actuation nasal spray,suspension isosorbide mononitrate 60 mg 60 mg PO DAILY 08/12/21 11/22/21 11/21/21 History tablet,extended release 24 hr clonazepam 0.5 mg tablet 1 mg PO TID #90 tab 08/28/21 11/22/21 11/20/21 21:30 Rx cyclobenzaprine 10 mg tablet 10 mg PO Q12H PRN #30 tab 09/11/21 11/22/21 11/21/21 21:00 Rx aspirin 81 mg tablet,delayed 81 mg PO DAILY #30 tab 09/12/21 11/22/21 11/21/21 08:00 Rx release pantoprazole 40 mg tablet,delayed 40 mg PO DAILY #30 tab 09/12/21 11/22/21 11/21/21 Rx release clonidine HCl 0.2 mg tablet 0.2 mg PO TID 11/03/21 11/22/21 11/21/21 22:00 History ferric citrate 210 mg iron tablet 420 mg PO TID 11/03/21 11/22/21 11/02/21 History (Auryxia) lactulose 20 gram/30 mL oral 10 g PO TID PRN 11/03/21 11/22/21 Unknown History solution lisinopril 40 mg tablet 40 mg PO DAILY 11/03/21 11/22/21 11/02/21 History nitroglycerin 0.4 mg sublingual 0.4 mg SUBLINGUAL Q5M PRN 11/03/21 11/22/21 Unknown History tablet quetiapine 25 mg tablet (Seroquel) 25 mg PO BEDTIME 11/03/21 11/22/21 11/21/21 History minoxidil 2.5 mg tablet 2.5 mg PO BID 11/22/21 11/22/21 Unknown History Allergies Allergy/AdvReac Type Severity Reaction Status Date / Time nifedipine Allergy KATERINY-Swell Verified 10/15/21 09:22 Lip/Tongue/Throat PFSH Acute PFSH: Medical History (Updated 11/22/21 @ 13:32 by Imani Seo DO) (HFpEF) heart failure with preserved ejection fraction Abdominal ascites Abdominal distention Abnormality of rib determined by X-ray Acute and chronic respiratory failure with hypoxia Acute diastolic CHF (congestive heart failure) Anasarca Anemia Anxiety with depression Arteriovenous fistula for hemodialysis in place, secondary Ascites Atherosclerosis of coronary artery Chronic abdominal pain Chronic respiratory failure Congestive heart failure COPD (chronic obstructive pulmonary disease) COPD (chronic obstructive pulmonary disease) COVID 05/25 Current smoker Degenerative disc disease, lumbar End-stage renal disease needing dialysis End-stage renal disease on hemodialysis ESRD on dialysis ESRD on dialysis Generalized anxiety disorder with panic attacks GERD without esophagitis Gross hematuria Hemoptysis Hepatomegaly Hyperkalemia Hypertension Hypertensive emergency Ileus PHT (pulmonary hypertension) Pneumonia Pulmonary embolism 09/21 Inconclusive for very tiny peripheral LEFT lower lobe pulmonary artery sub segmental emboli versus poor opacification. Right heart failure with reduced right ventricular function Smoking addiction Transaminitis Urethral stricture Surgical History H/O hand surgery Amputation right 2&3 fingers 2017 History of adenoidectomy Stented coronary artery Family History Father No problems noted. Other Hypertension Social History Smoking and tobacco status: current every day smoker cigarettes Packs smoked per day: 1.5 Years cigarettes smoked: 21 [ Other cigarette details: started age 20, currently 0.5ppd ] Alcohol intake: never Marital status: Number of children: 3 Current occupational status: disabled History of recent travel: No Vitals/I&O/Wt Last Vital Signs Temp 98.7 F 11/22/21 14:48 Pulse 82 11/22/21 14:48 Resp 16 11/22/21 14:48 BP 169/85 11/22/21 14:48 Pulse Ox 97 11/22/21 14:48 Weight last 48 hrs Weight 74.843 kg Physical Exam Narrative: General: Comfortable. On 3 L nasal cannula at this time, appears tired HEENT: NC/ atraumatic, EOMI, Cardio: Normal S1-S2, no apparent murmurs Respiratory: Bilateral crackles at bases and rhonchi throughout lung cantu GI: Abdomen soft, nontender, mildly distended bowel sounds + Extremities:Trace to 1+ pitting edema b/l Data : 11/22/21 12:08 11/22/21 12:08 A&P Assessment and plan (1) ESRD on dialysis: Status: Acute (2) End stage renal disease: Status: Acute (3) CKD (chronic kidney disease) stage 5, GFR less than 15 ml/min: Status: Acute (4) Exertional dyspnea: Status: Acute (5) COPD (chronic obstructive pulmonary disease): Status: Acute Qualifiers: COPD type: unspecified COPD Qualified Code(s): J44.9 - Chronic obstructive pulmonary disease, unspecified (6) Nicotine dependence, cigarettes, with other nicotine-induced disorders: Status: Acute (7) Hypertension: Status: Acute Plan #Hypertensive urgency #Acute on chronic respiratory failure with hypercarbia #End-stage renal disease dialysis dependent Thursday #Noncompliance to dialysis - Missed dialysis today. Not feeling well ? Check iron panel ? Consult nephrology. Start dialysis ? Bilateral pleural effusions present. - Will start nitro drip for hypertension - Continue all home medications - Pt fatigue most likely due to missed dialysis. No signs clinically of infection. Afebrile, no WBC, no cough, no increased sputum production, no dysuria. Will hold off on infectious workup or antibiotics at this time. I will however check a procalcitonin and troponin. - Continue bipap - Duoneb q6h PRN - Recheck labs in AM Full Code DVT PPX: Heparin Attestations Medical Necessity Statement*: Will admit for observation. Dialysis to be done today. Coding Level of Care Code Acute Decorating And Assembly Supervisor for g Fwd Diagnoses ESRD on dialysis N18.6; Z99.2 End stage renal disease N18.6 CKD (chronic kidney disease) stage 5, GFR less than 15 ml/min N18.5 Exertional dyspnea R06.00 COPD (chronic obstructive pulmonary disease) J44.9 COPD type: unspecified COPD Nicotine dependence, cigarettes, with other nicotine-induced disorders F17.218 Hypertension I10
[2021-11-22 16:57] LABS: Hepatitis B Surface Antigen Non-Reactive (Nonreactive)
[2021-11-22] MEDS: heparin 5,000 unit/mL INJ 1 mL 5000 UNIT SUBCUT (18:48)
--- NOTE | 2021-11-22 19:10 | PC.NURSE ---
Bedside report completed with JAGUAR Mercado
--- NOTE | 2021-11-22 19:33 | PC.NURSE ---
Shift Note Pt arrived to ICU shortly before 1500. He ws on his hoe O2 amount of 3lpm/NC. Sinus rhythm on monitor. Afebrile . CPP549's. Per pt, during admission, no new changes. His abdomen is round but much softer than it has been on previous admission. Dialysis finishing up as this note is written. Pt denied pain. e is now resting with eyes closed on BiPap at 30%. HIs , Leesa, is requested parencentisis appointment be arranged prior to his discharge. Frequent safety and comfort rounds continue. Orders and/or nursing care completed as indicated. Patient monitored for response to intervention and treatment(s). Education provided includes Heparin, orientation to room, and paln of care. Patient and/or personnel representative verbalized understanding of paln of care, heparin Will continue to monitor.
--- NOTE | 2021-11-22 19:54 | PC.NURSE ---
Patient woke asking where Cell Phone was, this RN was unaware of cell phone presence at admission. Called , Leesa, who reported she had taken patient cell phone home with her. also reported that she had updated patients mother about situation.
--- NOTE | 2021-11-22 19:58 | PC.NURSE ---
Dialysis nurse stated 4L removed following HD, patient tolerated well, HTN persisted through treatment.
[2021-11-22] MEDS: ipratropium-albuterol 3 mL Neb INHALATION (20:23)
[2021-11-22] MEDS: atorvastatin 40 mg Tablet PO (20:46)
[2021-11-22] MEDS: quetiapine 25 mg Tablet PO (20:47)
[2021-11-22] MEDS: cloNIDine 0.1 mg Tablet 0.2 MG PO (20:47)
[2021-11-22] MEDS: CLONazepam 0.5 mg Tablet 1 MG PO (20:47)
[2021-11-22 22:20] LABS: Troponin(5th) Baseline 492 ng/L (0-15)
--- NOTE | 2021-11-22 22:23 | USCV_ITS ---
Mal Gibbs Age: 41 Gender: M : 1980 Exam Date: 11/22/2021 23:00 Ordering Phys: Bob Gonzalez MD Technologist: Darian Vazquez [place] [facility] [place]: Abnormally high trop BP: 156 / 77 HR: 81 Rhythm: Sinus Technical Quality: Adequate MEASUREMENTS (Male / Female) Normal Values 2D ECHO LV Diastolic Diameter PLAX 4.5 cm 4.2 - 5.9 / 3.9 - 5.3 cm LV Systolic Diameter PLAX 3.2 cm IVS Diastolic Thickness 2.0 cm 0.6 - 1.0 / 0.6 - 0.9 cm IVS Systolic Thickness 1.8 cm LVPW Diastolic Thickness 2.0 cm 0.6 - 1.0 / 0.6 - 0.9 cm LVPW Systolic Thickness 2.3 cm LVOT Diameter 2.1 cm LV Ejection Fraction 2D Teich 57.6 % LV Ejection Fraction MOD 2C 45.6 % LV Ejection Fraction 2C AL 47.7 % LA Diameter 4.3 cm LA Width 5.2 cm LA Height 5.6 cm RA Width 5.2 cm RA Height 6.9 cm Aorta at Sinotubular Diameter 2.9 cm IVC Diameter 1.7 cm M-MODE Aortic Annulus Diameter 2.8 cm LA Ao Ratio MM 1.7 MV E Point Septal Separation 0.8 cm DOPPLER Right Atrial Pressure 13.0 mmHg FINDINGS Left Ventricle Normal left ventricular size and systolic function, EF 55 %. Mild to moderate concentric left tubular hypertrophy Right Ventricle The right ventricle is normal in size and function. Right Atrium Mildly increased right atrial size. Left Atrium Mildly increased left atrial size. Mitral Valve Thickened mitral valve. Moderate mitral annular calcification. Aortic Valve No gross abnormalities noted Tricuspid Valve No gross abnormalities noted Pulmonic Valve Pulmonic valve not well visualized. Pericardium Small pericardial effusion. Aorta Normal aortic annulus size. IVC Normal inferior vena cava. CONCLUSIONS Normal left ventricular size and systolic function, EF 55 %. Mild to moderate concentric left tubular hypertrophy. Thickened mitral valve. Moderate mitral annular calcification. Mild biatrial enlargement Small pericardial effusion. There are no intracardiac masses. Compared to the study from 09/04/2021, there may not be a significant change in the 2D findings Dr Ruba Hussein MD FACC (Electronically Signed) Final Date: 23 November 2021 13:38 S
[2021-11-22 22:26] LABS: Procalcitonin 0.34 ng/mL (0-0.5)
--- NOTE | 2021-11-22 22:37 | PC.NURSE ---
Addendum entered by Rogelio Quezada RN 11/23/21 01:01: Reported to Dr Gonzalez at 1021 Original Note: Received critical lab result from Lizzette in Lab at 1019, reported critical troponin to Dr. Stevens.
[2021-11-22] MEDS: aspirin 325 mg Tablet PO (22:55)
[2021-11-22] MEDS: heparin drip 25,000 UNIT/500 ML PREMIX 20.92 UNIT IV (23:06)
[2021-11-22 23:07] LABS: Iron 19 ug/dL (59-158); Percent Saturation 10.5 % (20-50); Total Iron Binding Capacity 180 mcg/dl; Unsaturated Iron Binding 161 ug/dL (112-347)
[2021-11-23] VITALS (72 sets, daily range): BP systolic 132–193; BP diastolic 67–146; PULSE 61–90; RESP 12–29; TEMP 36.4–36.9; O2SAT 89–99; BMI 21.7
[2021-11-23 00:20] LABS: Troponin 5 2HR 504.3 ng/L (0-15); Troponin 5 2HR Delta 12.3 ABS# (0-10)
--- NOTE | 2021-11-23 00:21 | PC.NURSE ---
Notified by Lizzette of Critical Troponin at 0019, see lab results, called to notify Dr Gonzalez of critical troponin at 0021. Heparin has been initiated and PTT scheduled.
[2021-11-23] MEDS: ipratropium-albuterol 3 mL Neb INHALATION ×4 (02:24→20:59)
--- NOTE | 2021-11-23 03:25 | ECG_ITS ---
[facility] Test Date: 2021-11-23 Pat Name: Mal Gibbs Department: Room: [facility]09 Gender: Male Aws Architect: : 1980 Requested By: Brigitte Amin Order Number: [id number] Mohini MD: Ruba Hussein M.D. Measurements Intervals [place] Rate: 73 P: 58 [place]: 191 QRS: 56 QRSD: 113 T: 74 QT: 447 QTc: 494 Interpretive Statements SINUS RHYTHM Possible left atrial enlargement MODERATE INTRAVENTRICULAR CONDUCTION DELAY [110+ ms QRS DURATION] NONSPECIFIC T-WAVE ABNORMALITY PROLONGED QT INTERVAL Compared to ECG 11/22/2021 11:53:11 Intraventricular conduction delay now present T-wave abnormality now present Prolonged QT interval now present Electronically Signed On 11-23-2021 20:19:56 CDT by Ruba Hussein M.D. [email or web address].[employer]/store/[id number]
[2021-11-23 05:02] LABS: Basophils % 0.8 %; Eosinophils # 0.3 10^3/uL (0.0-0.8); Hematocrit 26.7 % (42.0-52.0); Hemoglobin 8.9 g/dL (11.7-16.6); Lymphocytes # 0.7 10^3/uL (0.8-4.8); Lymphocytes % 18.4 %; Mean Corpuscular HGB Conc 33.3 g/dL (30.0-36.0); Mean Corpuscular Hemoglobin 27.7 pg (28.0-34.0); Mean Corpuscular Volume 83.2 fl (80-94); Mean Platelet Volume 9.8 fL (7.4-10.4); Monocytes # 0.3 10^3/uL (0.2-0.9); Monocytes % 9.1 %; Neutrophils # 2.41 10^3/uL (1.8-7.7); Neutrophils % 64.4 %; Nucleated Red Blood Cells % 0 %; Platelet Count 154 10^3/cmm (130-400); Red Blood Count 3.21 10^6/uL (4.1-5.3); Red Cell Distribution Width 18.8 % (12.1-15.1); White Blood Count 3.7 10^3/uL (4.0-10.0)
[2021-11-23 05:13] LABS: Partial Thromboplastin Time 56.4 SECONDS (23.9-36.7)
[2021-11-23 05:22] LABS: Anion Gap 14.4 (5-19); Blood Urea Nitrogen 23 mg/dL (6-20); Calcium 9.6 mg/dL (8.5-10.5); Carbon Dioxide 29 mmol/L (22-29); Chloride 97 mmol/L (98-107); Glomerular Filtration Rate 13.3 mL/min (90-130); Glucose 73 mg/dL (65-115); Osmolality Calculated 284 mOsm/kg (285-295); Phosphorus 4.6 mg/dL (2.5-4.5); Potassium 4.4 mmol/L (3.5-5.1); Sodium 136 mmol/L (136-145)
[2021-11-23 05:23] LABS: Creatinine Clr Calc Pharmacy 22.2784
[2021-11-23 05:25] LABS: Troponin 5 6HR 570.6 ng/L (0-15); Troponin 5 6HR Delta 78.6 ng/L (0-12)
--- NOTE | 2021-11-23 05:27 | PC.NURSE ---
Notified of Critical troponin at 0524, contacted Dr Watts to report new critical at 0525. No new orders at this time.
--- NOTE | 2021-11-23 08:00 | XRR_ITS ---
PROCEDURE INFORMATION: Exam: XR Chest Exam date and time: 11/23/2021 7:34 AM Age: 41 years old Clinical indication: Condition or disease; Lung condition and disease; Pulmonary edema; Status not specified; Additional info: Re-assess pulm edema TECHNIQUE: Imaging protocol: Radiologic exam of the chest. Views: 1 view. COMPARISON: CR XR chest 2V* [id number] 11/22/2021 12:02 PM FINDINGS: Lungs: There is increased interstitial markings, in association with haziness of the lungs, which in the setting of cardiomegaly is consistent with pulmonary congestion. No large pleural effusion or pneumothorax. Pleural spaces: See Lungs finding. Heart/Mediastinum: Stable cardiomediastinal silhouette. Bones/joints: Unremarkable. XR/XR chest 1V portable [id number] IMPRESSION: Imaging findings of pulmonary congestion. Pneumonia should be excluded clinically.
--- NOTE | 2021-11-23 08:23 | PM.PN ---
Subjective Subjective: Seen this morning. Patient is on BiPAP at this time. Trope overnight came back high at 465. Delta troponin was also positive at 78. Heparin drip started for ACS protocol. Awaiting results of echo. No other acute events overnight. X-ray ordered for this morning showed increasing worsening pulmonary edema. BNP greater than 70,000. Vitals/I&O/Wt Last Vital Signs Temp 97.6 F 11/23/21 04:00 Pulse 69 11/23/21 07:57 Resp 13 11/23/21 07:57 BP 154/89 11/23/21 06:45 Pulse Ox 96 11/23/21 07:57 11/22/21 11/23/21 11/23/21 22:59 06:59 14:59 Intake Total 300 / 300 0 / 300 Output Total 4300 / 4300 Balance -4000 / -4000 0 / -4000 Weight last 48 hrs Weight 74.701 kg Weight 74.7 kg Weight 74.843 kg Physical Exam Narrative: General: Comfortable.? On bipap at this time, appears tired HEENT: NC/ atraumatic, EOMI, Cardio: Normal S1-S2, no apparent murmurs Respiratory: Bilateral crackles at bases and rhonchi throughout lung cantu GI: Abdomen soft, nontender, mildly distended, bowel sounds + Extremities:Trace to 1+ pitting edema b/l Data : 11/23/21 04:49 11/23/21 04:49 A&P Assessment and plan (1) ESRD on dialysis: Status: Acute (2) End stage renal disease: Status: Acute (3) Pleural effusion: Status: Acute (4) CKD (chronic kidney disease) stage 5, GFR less than 15 ml/min: Status: Acute (5) Exertional dyspnea: Status: Acute (6) COPD (chronic obstructive pulmonary disease): Status: Acute Qualifiers: COPD type: unspecified COPD Qualified Code(s): J44.9 - Chronic obstructive pulmonary disease, unspecified (7) Hypertension: Status: Acute (8) Nicotine dependence, cigarettes, with other nicotine-induced disorders: Status: Acute (9) Hypertension: Status: Acute (10) NSTEMI (non-ST elevated myocardial infarction): Status: Acute Plan #NSTEMI #Hypertensive urgency #Acute on chronic respiratory failure with hypercarbia #End-stage renal disease dialysis dependent Thursday #Pulm Edema #Hx of CAD with recent MARYAM x1 07/23 #Noncompliance to dialysis #Hx of chronic CHF with preserved EF, RV dysfunction - Missed dialysis today.? Not feeling well ? Check iron panel ? Consult nephrology.?Continue dialysis. Second session today. ? Bilateral pleural effusions present. Worsening pulm edema. BNP > 52478 - Contine on heparin drip to complete 48 hours. Will Consult cardiology for NSTEMI. Initial Trop 465, delta 78 - Check echo, report pending - Continue all home medications - Pt fatigue most likely due to missed dialysis. No signs clinically of infection. Afebrile, no WBC, no cough, no increased sputum production, no dysuria. Will hold off on infectious workup or antibiotics at this time. Procalcitonin negative. - Continue bipap - Duoneb q6h PRN - Recheck labs in AM Full Code DVT PPX: Heparin Attestations Medical Necessity Statement*: Will need continued hospitalization for management of pulm edema, and NSTEMI. Coding Level of Care Code Acute District Manager [employer] for g Fwd Diagnoses ESRD on dialysis N18.6; Z99.2 End stage renal disease N18.6 Pleural effusion J90 CKD (chronic kidney disease) stage 5, GFR less than 15 ml/min N18.5 Exertional dyspnea R06.00 COPD (chronic obstructive pulmonary disease) J44.9 COPD type: unspecified COPD Hypertension I10 Nicotine dependence, cigarettes, with other nicotine-induced disorders F17.218 Hypertension I10 NSTEMI (non-ST elevated myocardial infarction) I21.4
--- NOTE | 2021-11-23 08:34 | ECG_ITS ---
[facility] Test Date: 2021-11-23 Pat Name: Mal Gibbs Department: Room: [facility]09 Gender: Male Federal Mediator: : 1980 Requested By: Brigitte Amin Order Number: [id number] Mohini MD: Ruba Hussein M.D. Measurements Intervals [place] Rate: P: [place]: QRS: QRSD: T: QT: QTc: Interpretive Statements Sinus rhythm with a poor R wave progression. Ventricular and supraventricular ectopics. Some nonspecific T wave changes. NO FURTHER INTERPRETATION POSSIBLE ATYPICAL ECG WARNING: DATA QUALITY MAY AFFECT INTERPRETATION Compared to ECG 11/23/2021 04:19:34 Intraventricular conduction delay no longer present T-wave abnormality no longer present Prolonged QT interval no longer present Electronically Signed On 11-23-2021 20:21:17 CDT by Ruba Hussein M.D. [id number]
[2021-11-23] MEDS: pantoprazole DR 40 mg Tablet PO (08:38)
[2021-11-23] MEDS: amlodipine 10 mg Tablet PO (08:39)
[2021-11-23] MEDS: carvedilol 25 mg Tablet PO ×2 (08:39→18:48)
[2021-11-23] MEDS: CLONazepam 0.5 mg Tablet 1 MG PO ×2 (08:39→21:43)
[2021-11-23] MEDS: clopidogrel 75 mg Tablet PO (08:39)
[2021-11-23] MEDS: minoxidil 10 mg Tablet 2.5 MG PO ×2 (08:39→18:47)
[2021-11-23] MEDS: lisinopril 20 mg Tablet 40 MG PO (08:39)
[2021-11-23] MEDS: cloNIDine 0.1 mg Tablet 0.2 MG PO (08:40)
[2021-11-23] MEDS: isosorbide mononitrate ER 60 mg Tablet PO (08:50)
[2021-11-23 09:37] LABS: NT Pro B Type Natriuretic Pept > 70000 pg/mL (0-125)
--- NOTE | 2021-11-23 11:42 | P.PN_ITS ---
Subjective Subjective: on BiPAP while sleeping, 4L NC when awake Vitals/I&O/Wt Last Vital Signs Temp 97.6 F 11/23/21 04:00 Pulse 65 11/23/21 10:00 Resp 15 11/23/21 10:00 BP 148/81 11/23/21 10:00 Pulse Ox 97 11/23/21 10:00 11/22/21 11/23/21 11/23/21 22:59 06:59 14:59 Intake Total 300 / 300 0 / 300 240 / 240 Output Total 4300 / 4300 Balance -4000 / -4000 0 / -4000 240 / 240 Weight last 48 hrs Weight 74.701 kg Weight 74.7 kg Weight 74.843 kg Physical Exam Const: COMMON NORMALS: no acute distress Extremity: NARRATIVE EXTREMITY EXAM: 1+ edema Data : 11/23/21 04:49 11/23/21 04:49 Other Labs: BNO > 70,000 + troponins Ca 9.6, phos 4.6, Mg 2.0 TSAT 10% CXR: Radiologist's impression: Lungs: There is increased interstitial markings, in association with haziness of the lungs, which in the setting of cardiomegaly is consistent with pulmonary congestion. No large pleural effusion or pneumothorax. A&P Assessment and plan (1) ESRD on dialysis: Status: Acute Plan seen via telemedicine with assistance of RN at bedside 1. ESRD 2. Severe hypertension, improved 3. Volume overload, + troponins, on heparin gtt. Cardiology consulted. 4. Anemia, iron deficient Recommend: HD today. 3h 3L UF 2K bath. No IVs, BPs, blood draws left arm. IV iron at dialysis Attestations Medical Necessity Statement*: see above Time Spent in Patient Care: 16 - 35 minutes Coding Level of Care Code Acute Emd Special Education Teacher for Chg Fwd Diagnoses ESRD on dialysis N18.6; Z99.2
--- NOTE | 2021-11-23 13:15 | P.CONIM_ITS ---
Providers/Reason For Consult Consulting Physician/Specialty*: My ANGELINE Hussein MD/cardiology Reason for Consult*: Patient with elevated troponin T/congestive heart failure/end-stage renal disease Requesting Physician: Dr. Amin Attending Physician: Brigitte Amin MD Primary Care Provider: Mal Peres DO History of Present Illness History of Present Illness Mal Gibbs is a 41 year old male with a history of end-stage renal d isease, on hemodialysis, atherosclerotic heart disease, status post PCI, recurrent episodes of accelerated hypertension complicated with diastolic heart failure and multiple medical problems, is admitted to the hospital through the emergency room, where he presented with an acute onset of shortness of breath. According to patient, last night while he was in the bed, woke up with sudden onset of shortness of breath. It started gradually getting worse. She did have any chest pain or palpitations. No fever no chills or cough. No other associated symptoms. Because of worsening shortness of breath, he came to the hospital emergency room. He was found to have elevated troponin T in the 400 range. He also was found in heart failure. His troponin T seems to be trending upwards. He had hemodialysis yesterday. Cardiology consult is requested for further cardiac evaluation recommendations. Patient is a poor historian. He is known to have end-stage renal disease and is on hemodialysis, 3 times a week. He also is known to have recurrent episodes of decompensated diastolic heart failure. He also had a multiple hospitalization in the past for accelerated hypertension. Currently his blood pressure seems to be slowly getting under control. He has a history of COPD, history of non compliance with recurrent hospitalization for pulmonary edema, hypertensive emergencies and missed dialysis. Lately he has been compliant with hemodialysis and medications. Since the hemodialysis yesterday, he is feeling much better. He has no fever no chills. No cough. Review of Systems Narrative: CONSTITUTIONAL: No fever or chills. [] EYES: No blurring of vision or other visual disturbances lately. ENT: No hoarseness of voice, auditory disturbances or sore throat. CARDIOVASCULAR: As mentioned above. RESPIRATORY: Shortness of breath as mentioned above. GASTROINTESTINAL: No hematemesis or melena. GENITOURINARY: No dysuria or hematuria. INTEGUMENTARY: No skin rashes or history of skin cancer. NEURO: No transient ischemic attacks or amaurosis. PSYCHIATRIC: No history of psychosis or major depression. HEMATOLOGIC: No bleeding disorders or significant anemia. ENDOCRINE: No history of polyuria or polydipsia. MUSCULOSKELETAL: No recent joint pain or swelling. ALLERGY/IMMUNOLOGY: As mentioned above. Medications/Allergies Home Medications Medication Instructions Recorded Confirmed Last Taken Type rifaximin 550 mg tablet (Xifaxan) 550 mg PO BID 06/10/21 11/22/21 11/21/21 History amlodipine 10 mg tablet 10 mg PO DAILY 30 Days #30 tab 07/16/21 11/22/21 11/21/21 08:00 Rx atorvastatin 40 mg tablet 40 mg PO BEDTIME #30 tab 07/25/21 11/22/21 11/02/21 Rx carvedilol 25 mg tablet 25 mg PO BID 30 Days #60 tab 07/25/21 11/22/21 11/21/21 21:00 Rx clopidogrel 75 mg tablet 75 mg PO DAILY #30 tab 07/25/21 11/22/21 11/02/21 Rx albuterol sulfate 90 mcg/actuation 2 puff INHALATION QID PRN #2 g 08/06/21 11/22/21 10/03/21 Rx aerosol inhaler (ProAir HFA) umeclidinium 62.5 mcg/actuation 1 inh INHALATION DAILY #30 ea 08/06/21 11/22/21 11/21/21 Rx blister powder for inhalation (Incruse Ellipta) fluticasone propionate 50 2 spray INTRANASAL DAILY PRN 08/12/21 11/22/21 10/03/21 History mcg/actuation nasal spray,suspension isosorbide mononitrate 60 mg 60 mg PO DAILY 08/12/21 11/22/21 11/21/21 History tablet,extended release 24 hr clonazepam 0.5 mg tablet 1 mg PO TID #90 tab 08/28/21 11/22/21 11/20/21 21:30 Rx cyclobenzaprine 10 mg tablet 10 mg PO Q12H PRN #30 tab 09/11/21 11/22/21 11/21/21 21:00 Rx aspirin 81 mg tablet,delayed 81 mg PO DAILY #30 tab 09/12/21 11/22/21 11/21/21 08:00 Rx release pantoprazole 40 mg tablet,delayed 40 mg PO DAILY #30 tab 09/12/21 11/22/21 11/21/21 Rx release clonidine HCl 0.2 mg tablet 0.2 mg PO TID 11/03/21 11/22/21 11/21/21 22:00 History ferric citrate 210 mg iron tablet 420 mg PO TID 11/03/21 11/22/21 11/02/21 History (Auryxia) lactulose 20 gram/30 mL oral 10 g PO TID PRN 11/03/21 11/22/21 Unknown History solution lisinopril 40 mg tablet 40 mg PO DAILY 11/03/21 11/22/21 11/02/21 History nitroglycerin 0.4 mg sublingual 0.4 mg SUBLINGUAL Q5M PRN 11/03/21 11/22/21 Unknown History tablet quetiapine 25 mg tablet (Seroquel) 25 mg PO BEDTIME 11/03/21 11/22/21 11/21/21 History minoxidil 2.5 mg tablet 2.5 mg PO BID 11/22/21 11/22/21 Unknown History Allergies Allergy/AdvReac Type Severity Reaction Status Date / Time nifedipine Allergy ALGY-Swell Verified 10/15/21 09:22 Lip/Tongue/Throat Current Medications Generic Name Dose Route Start Last Admin Trade Name Freq PRN Reason Stop Dose Admin Albuterol/Ipratropium 3 ml 11/22/21 20:00 11/23/21 07:53 Ipratropium-Albuterol 3 Ml Neb INHALATION 3 ml Q6H.RESP ARTEM Administration Amlodipine Besylate 10 mg 11/23/21 09:00 11/23/21 08:39 Amlodipine 10 Mg Tablet PO 10 mg DAILY ARTEM Administration Aspirin 325 mg 11/22/21 22:30 11/22/21 22:55 Aspirin 325 Mg Tablet PO 325 mg Q24H ARTEM Administration Atorvastatin Calcium 40 mg 11/22/21 21:00 11/22/21 20:46 Atorvastatin 40 Mg Tablet PO 40 mg BEDTIME ARTEM Administration Carvedilol 25 mg 11/23/21 09:00 11/23/21 08:39 Carvedilol 25 Mg Tablet PO 25 mg BID ARTEM Administration Clonazepam 1 mg 11/22/21 21:00 11/23/21 08:39 Clonazepam 0.5 Mg Tablet PO 1 mg TID ARTEM Administration Clonidine HCl 0.2 mg 11/22/21 21:00 11/23/21 08:40 Clonidine 0.1 Mg Tablet PO 0.2 mg TID ARTEM Administration Clopidogrel Bisulfate 75 mg 11/23/21 09:00 11/23/21 08:39 Clopidogrel 75 Mg Tablet PO 75 mg DAILY ARTEM Administration Heparin Sodium/Sodium Chloride 25,000 unit in 500 mls @ 0 mls/hr 11/22/21 22:30 11/22/21 23:06 Heparin Drip IV 14 unit/kg/hr .Q0M ARTEM 20.92 mls/hr Administration Protocol Per Protocol Isosorbide Mononitrate 60 mg 11/23/21 09:00 11/23/21 08:50 Isosorbide Mononitrate Er 60 Mg Tablet PO 60 mg DAILY ARTEM Administration Lisinopril 40 mg 11/23/21 09:00 11/23/21 08:39 Lisinopril 20 Mg Tablet PO 40 mg DAILY ARTEM Administration Minoxidil 2.5 mg 11/23/21 09:00 11/23/21 08:39 Minoxidil 10 Mg Tablet PO 2.5 mg BID ARTEM Administration Non-Formulary Medication 1 inh 11/23/21 09:00 11/23/21 08:51 Umeclidinium [Incruse Ellipta] INHALATION Not Given DAILY [facility] Pantoprazole Sodium 40 mg 11/23/21 09:00 11/23/21 08:[address] 40 Mg Tablet PO 40 mg DAILY ARTEM Administration Quetiapine Fumarate 25 mg 11/22/21 21:00 11/22/21 20:47 Quetiapine 25 Mg Tablet PO 25 mg BEDTIME ARTEM Administration Rifaximin 550 mg 11/23/21 09:00 11/23/21 08:39 Rifaximin 550 Mg Tablet PO 550 mg BID ARTEM Administration Protocol PFSH Acute PFSH: Medical History (HFpEF) heart failure with preserved ejection fraction Abdominal ascites Abdominal distention Abnormality of rib determined by X-ray Acute and chronic respiratory failure with hypoxia Acute diastolic CHF (congestive heart failure) Anasarca Anemia Anxiety with depression Arteriovenous fistula for hemodialysis in place, secondary Ascites Atherosclerosis of coronary artery Chronic abdominal pain Chronic respiratory failure Congestive heart failure COPD (chronic obstructive pulmonary disease) COPD (chronic obstructive pulmonary disease) COVID 05/25 Current smoker Degenerative disc disease, lumbar End-stage renal disease needing dialysis End-stage renal disease on hemodialysis ESRD on dialysis ESRD on dialysis Generalized anxiety disorder with panic attacks GERD without esophagitis Gross hematuria Hemoptysis Hepatomegaly Hyperkalemia Hypertension Hypertensive emergency Ileus PHT (pulmonary hypertension) Pneumonia Pulmonary embolism 09/21 Inconclusive for very tiny peripheral LEFT lower lobe pulmonary artery sub segmental emboli versus poor opacification. Right heart failure with reduced right ventricular function Smoking addiction Transaminitis Urethral stricture Surgical History H/O hand surgery Amputation right 2&3 fingers 2017 History of adenoidectomy Stented coronary artery Family History Father No problems noted. Other Hypertension Social History Smoking and tobacco status: current every day smoker cigarettes Packs smoked per day: 1.5 Years cigarettes smoked: 21 [ Other cigarette details: started age 20, currently 0.5ppd ] Alcohol intake: never Marital status: Number of children: 3 Current occupational status: disabled History of recent travel: No Vitals/I&O/Wt Last Vital Signs Temp 97.6 F 11/23/21 04:00 Pulse 74 11/23/21 13:00 Resp 17 11/23/21 13:00 BP 160/85 11/23/21 13:00 Pulse Ox 90 11/23/21 13:00 11/22/21 11/23/21 11/23/21 22:59 06:59 14:59 Intake Total 300 / 300 0 / 300 480 / 480 Output Total 4300 / 4300 Balance -4000 / -4000 0 / -4000 480 / 480 Weight last 48 hrs Weight 164 lb 11 oz Weight 164 lb 10.965 oz Weight 165 lb Physical Exam Narrative: GENERAL: The patient is alert and oriented times three. Not in any acute distress. Slightly lethargic HEENT: No significant pallor, icterus or lymphadenopathy.Oral cavity: There are no mucous membrane lesions. NECK: Trachea appears to be central. No masses noted. No JVD or thyromegaly appreciated. RESPIRATORY: Chest is symmetrical. No intercostals muscle retraction or any acc essory muscle activation. There is no chest wall tenderness. Breath sounds are heard bilaterally. No rales or rhonchi heard. No evidence of any consolidation. BREASTS: Deferred. HEART: The heart sounds are normal. No S3 or S4. Short systolic murmur the left sternal border. No diastolic murmurs. ABDOMEN: No vessel pulsations or distention. No tenderness. No organomegaly appreciated. Bowel sounds are normally heard. : Deferred. RECTAL: Deferred. LYMPHATIC: No lymphadenopathy noted in the neck. EXTREMITIES: No edema or cyanosis. No clubbing. MUSCULOSKELETAL: No acute joint deformities or swelling SKIN: There are no significant rashes or ecchymosis NEUROPSYCHIATRIC: The patient is alert and oriented x3. Appears to be in a good mood. No tremors or rigidity noted. Data : 11/23/21 04:49 11/23/21 04:49 Other Labs: Laboratory Last Values WBC 3.7 10^3/uL (4.0-10.0) L 11/23/21 04:49 RBC 3.21 10^6/uL (4.1-5.3) L 11/23/21 04:49 Hgb 8.9 g/dL (11.7-16.6) L 11/23/21 04:49 Hct 26.7 % (42.0-52.0) L 11/23/21 04:49 MCV 83.2 fl (80-94) 11/23/21 04:49 MCH 27.7 pg (28.0-34.0) L 11/23/21 04:49 MCHC 33.3 g/dL (30.0-36.0) 11/23/21 04:49 RDW 18.8 % (12.1-15.1) H 11/23/21 04:49 Plt Count 154 10^3/cmm (130-400) 11/23/21 04:49 MPV 9.8 fL (7.4-10.4) 11/23/21 04:49 Neut % (Auto) 64.4 % 11/23/21 04:49 Lymph % (Auto) 18.4 % 11/23/21 04:49 [place] % (Auto) 9.1 % 11/23/21 04:49 Eos % (Auto) 7.0 % 11/23/21 04:49 Baso % (Auto) 0.8 % 11/23/21 04:49 Neut # (Auto) 2.41 10^3/uL (1.8-7.7) 11/23/21 04:49 Lymph # (Auto) 0.7 10^3/uL (0.8-4.8) L 11/23/21 04:49 [place] # (Auto) 0.3 10^3/uL (0.2-0.9) 11/23/21 04:49 Eos # (Auto) 0.3 10^3/uL (0.0-0.8) 11/23/21 04:49 Baso # (Auto) 0.0 10^3/uL (0.0-0.1) 11/23/21 04:49 Nucleated RBC % (auto) 0 % 11/23/21 04:49 Nucleated RBCs # 0.0 /100WBC 11/23/21 04:49 APTT 49.0 SECONDS (23.9-36.7) H 11/23/21 11:42 Sodium 136 mmol/L (136-145) 11/23/21 04:49 Potassium 4.4 mmol/L (3.5-5.1) 11/23/21 04:49 Chloride 97 mmol/L (98-107) L 11/23/21 04:49 Carbon Dioxide 29 mmol/L (22-29) 11/23/21 04:49 Anion Gap 14.4 (5-19) 11/23/21 04:49 BUN 23 mg/dL (6-20) H 11/23/21 04:49 Creatinine 4.9 mg/dL (0.7-1.2) H 11/23/21 04:49 GFR Calculation 13.3 mL/min (90-130) L 11/23/21 04:49 Glucose 73 mg/dL (65-115) 11/23/21 04:49 Calculated Osmolality 284 mOsm/kg (285-295) L 11/23/21 04:49 Calcium 9.6 mg/dL (8.5-10.5) 11/23/21 04:49 Phosphorus 4.6 mg/dL (2.5-4.5) H 11/23/21 04:49 Magnesium 2.0 mg/dL (1.7-2.3) 11/23/21 04:49 Iron 19 ug/dL (59-158) L 11/22/21 21:42 Iron 19 ug/dL (59-158) L 11/22/21 21:42 TIBC 180 mcg/dl 11/22/21 21:42 % Saturation 10.5 % (20-50) L 11/22/21 21:42 Unsat Iron Binding 161 ug/dL (112-347) 11/22/21 21:42 Total Bilirubin 0.8 mg/dL (0.15-1.2) 11/22/21 12:08 AST 17 U/L (0-40) 11/22/21 12:08 ALT < 5 U/L (0-41) 11/22/21 12:08 Alkaline Phosphatase 140 IU/L (40-130) H 11/22/21 12:08 Troponin T Baseline 492 ng/L (0-15) H* 11/22/21 21:42 Troponin T 120 Minute 504.3 ng/L (0-15) H 11/22/21 23:42 Delta Troponin T 12.3 ABS# (0-10) H* 11/22/21 23:42 Troponin T Hi Sens 6Hr 570.6 ng/L (0-15) H 11/23/21 04:49 Troponin T Hi Sens 6Hr Delta 78.6 ng/L (0-12) H* 11/23/21 04:49 NT-Pro-B Natriuret Pep > 20762 pg/mL (0-125) H 11/23/21 04:49 Total Protein 7.2 g/dL (6.6-8.7) 11/22/21 12:08 Albumin 3.9 g/dL (3.5-5.2) 11/22/21 12:08 Globulin 3.3 g/dL (1.3-4.6) 11/22/21 12:08 Procalcitonin 0.40 ng/mL (0-0.5) 11/23/21 04:49 Hep Bs Antigen Non-reactive (Nonreactive) 11/22/21 15:47 Cardiac catheterization: My impression: 07/21/2021 ?* Angiography shows a right coronary dominant system. ? * Very short normal left main. ? * Normal left anterior descending artery. ? * Normal caliber circumflex with 1 large obtuse marginal branch.? Proximal portion of high obtuse marginal branch has a short segment 80% stenosis (culprit vessel). ? * Dominant right coronary artery with minor luminal irregularities. The PCI was performed by Dr. Blakely 4.0 x 15 mm resolute Corey drug-eluting stent placement. Echo: My impression: Echocardiogram on 09/13/2021 ?LV systolic function is normal with EF of 50-55% ?Diastolic function is abnormal ?Biatrial enlargement ?Mild mitral regurgitation ?Moderate pulmonary hypertension ?Trivial pericardial effusion and moderate pleural effusion noted ?Compared to prior echocardiogram from 05/02/2021, no significant ?changes are noted EKG 1: My Interpretation: Normal sinus rhythm with supraventricular and ventricular ectopics. Poor R wave progression. Moderate criteria for LVH. EKG computer-generated impression: Chest X-Ray 11/23/21 08:00 IMPRESSION: Imaging findings of pulmonary congestion. Pneumonia should be excluded clinically. A&P Assessment and plan (1) NSTEMI (non-ST elevated myocardial infarction): Patient did present with a troponin to level in the 400 range. He has a history of chronically elevated troponin T. I reviewed his medical records. His baseline troponin T has been ranging anywhere from 56- 12, except for July 29 of this year. He was in the 170 range. Apparently he never had troponin T going up into the 400 range. He has a delta of 12 and 79 at 2 hours and 6 hours respectively. He has no pain. The shortness of breath has improved. At this point, he may be started on IV heparin. Continue the Plavix and aspirin. He had an echocardiogram and the findings are as mentioned above. He may benefit from a cardiac catheterization, to further evaluate his coronary status and to decide on further management. Status: Acute (2) ESRD on dialysis: Patient had a hemodialysis yesterday. He is going to have another dialysis today. Status: Acute (3) Acute on chronic diastolic (congestive) heart failure: The uncontrolled blood pressure, ischemia and the renal failure, all are contributing factors. We will try to optimize her antihypertensive medications. I may start her on hydralazine 50 mg p.o. every 8 hours. Change the clonidine to as needed Status: Acute (4) Hypertension: As mentioned above. Status: Acute (5) Atherosclerosis of coronary artery: The most recent cardiac catheterization the July of this year revealed high- grade lesion in the obtuse marginal artery. He underwent a PCI of this lesion. He was found to have no significant coronary artery disease in the other vessels. Possibility of stent thrombosis is a concern. This needs to be further evaluated. Status: Acute Plan The other problems are History of ascites, status post paracentesis, currently resolved. Pleural effusion COPD Small pericardial effusion We may consider repeat cardiac catheterization to reevaluate the coronary arteries and decide on further management. The risk of bleeding, hematoma, vascular injury, myocardial infarction, CVA, CHF and other concomitant complications were explained in detail. Patient understood this well and consented to proceed. Consult Attestations Medical Necessity Statement: Patient requires continued hospital stay for close monitoring and further management Coding Level of Care Code Acute Lettuce Trimmer for Chg Fwd History Detailed Exam Detailed Medical Decision Making High Complexity Diagnoses NSTEMI (non-ST elevated myocardial infarction) I21.4 ESRD on dialysis N18.6; Z99.2 Acute on chronic diastolic (congestive) heart failure I50.33 Hypertension I10 Atherosclerosis of coronary artery I25.10
[2021-11-23] MEDS: iron sucrose 200 MG in sodium chloride 0.9% (100 ml) 100 ML 220 MG IV (14:04)
[2021-11-23 18:44] LABS: Partial Thromboplastin Time 42.5 SECONDS (23.9-36.7)
[2021-11-23] MEDS: hyDRALAzine 50 mg Tablet PO ×2 (18:48→21:43)
[2021-11-23] MEDS: heparin drip 25,000 UNIT/500 ML PREMIX 25.4 UNIT IV (19:22)
[2021-11-23] MEDS: aspirin 325 mg Tablet PO (21:43)
[2021-11-23] MEDS: atorvastatin 40 mg Tablet PO (21:44)
[2021-11-23] MEDS: quetiapine 25 mg Tablet PO (21:44)
[2021-11-24] VITALS (66 sets, daily range): BP systolic 134–273; BP diastolic 73–119; PULSE 61–78; RESP 12–31; TEMP 36.2–36.3; O2SAT 89–100
[2021-11-24 00:35] LABS: Partial Thromboplastin Time 49.6 SECONDS (23.9-36.7)
[2021-11-24] MEDS: ipratropium-albuterol 3 mL Neb INHALATION ×4 (02:46→20:23)
[2021-11-24 05:45] LABS: Basophils % 0.9 %; Eosinophils # 0.3 10^3/uL (0.0-0.8); Eosinophils % 6.6 %; Hematocrit 26.3 % (42.0-52.0); Hemoglobin 8.6 g/dL (11.7-16.6); Lymphocytes # 0.9 10^3/uL (0.8-4.8); Lymphocytes % 20.9 %; Mean Corpuscular HGB Conc 32.7 g/dL (30.0-36.0); Mean Corpuscular Hemoglobin 27.1 pg (28.0-34.0); Mean Platelet Volume 9.5 fL (7.4-10.4); Monocytes # 0.4 10^3/uL (0.2-0.9); Neutrophils # 2.59 10^3/uL (1.8-7.7); Neutrophils % 61.4 %; Nucleated Red Blood Cells % 0 %; Platelet Count 170 10^3/cmm (130-400); Red Blood Count 3.17 10^6/uL (4.1-5.3); Red Cell Distribution Width 18.6 % (12.1-15.1); White Blood Count 4.2 10^3/uL (4.0-10.0)
[2021-11-24 05:59] LABS: Partial Thromboplastin Time 56.3 SECONDS (23.9-36.7)
[2021-11-24 06:03] LABS: Alanine Aminotransferase 6 U/L (0-41); Albumin Level 3.5 g/dL (3.5-5.2); Alkaline Phosphatase 136 IU/L (40-130); Anion Gap 15.3 (5-19); Aspartate Amino Transferase 11 U/L (0-40); Blood Urea Nitrogen 28 mg/dL (6-20); Calcium 9.3 mg/dL (8.5-10.5); Carbon Dioxide 30 mmol/L (22-29); Chloride 96 mmol/L (98-107); Globulin 3.2 g/dL (1.3-4.6); Glomerular Filtration Rate 13.9 mL/min (90-130); Glucose 81 mg/dL (65-115); Magnesium 2.1 mg/dL (1.7-2.3); Osmolality Calculated 289 mOsm/kg (285-295); Potassium 4.3 mmol/L (3.5-5.1); Sodium 137 mmol/L (136-145); Total Bilirubin 0.7 mg/dL (0.15-1.2); Total Protein 6.7 g/dL (6.6-8.7)
[2021-11-24] MEDS: cloNIDine 0.1 mg Tablet 0.2 MG PO ×2 (06:04→15:46)
[2021-11-24 06:06] LABS: Troponin T (5th) Once 630 ng/L (0-15)
--- NOTE | 2021-11-24 06:45 | PM.PN ---
Subjective Subjective: letahrgic, sob on bipap Medications: Reviewed: Yes Medication Review Details: Current Medications Albuterol Sulfate (Albuterol 8 Gm Mdi) 2 puff INHALATION QID PRN PRN Reason: Shortness Of Breath Albuterol/Ipratropium (Ipratropium-Albuterol 3 Ml Neb) 3 ml INHALATION Q6H.RESP [facility] Last Admin: 11/24/21 02:46 Dose: 3 ml Documented by: Amlodipine Besylate (Amlodipine 10 Mg Tablet) 10 mg PO DAILY [facility] Last Admin: 11/23/21 08:39 Dose: 10 mg Documented by: Aspirin (Aspirin 325 Mg Tablet) 325 mg PO Q24H [facility] Last Admin: 11/23/21 21:43 Dose: 325 mg Documented by: Atorvastatin Calcium (Atorvastatin 40 Mg Tablet) 40 mg PO BEDTIME [facility] Last Admin: 11/23/21 21:44 Dose: 40 mg Documented by: Carvedilol (Carvedilol 25 Mg Tablet) 25 mg PO BID [facility] Last Admin: 11/23/21 18:48 Dose: 25 mg Documented by: Clonazepam (Clonazepam 0.5 Mg Tablet) 1 mg PO TID [facility] Last Admin: 11/23/21 21:43 Dose: 1 mg Documented by: Clonidine HCl (Clonidine 0.1 Mg Tablet) 0.2 mg PO Q8H PRN PRN Reason: HYPERTENSION Last Admin: 11/24/21 06:04 Dose: 0.2 mg Documented by: Clopidogrel Bisulfate (Clopidogrel 75 Mg Tablet) 75 mg PO DAILY [facility] Last Admin: 11/23/21 08:39 Dose: 75 mg Documented by: Cyclobenzaprine HCl (Cyclobenzaprine 10 Mg Tablet) 10 mg PO Q12H PRN PRN Reason: muscle spasm Fluticasone Propionate (Fluticasone Nasal [place] 16gm Btl) 2 spray INTRANASAL DAILY PRN PRN Reason: Allergy Symptoms Hydralazine HCl (Hydralazine 50 Mg Tablet) 50 mg PO QID [facility] Last Admin: 11/23/21 21:43 Dose: 50 mg Documented by: Sodium Chloride (Sodium Chloride 0.9%) 1,000 mls @ 0 mls/hr IV .Q0M PRN PRN Reason: hypotension or symptomatic Heparin Sodium/Sodium Chloride (Heparin Drip) 25,000 unit in 500 mls @ 0 mls/hr IV .Q0M [facility]; Protocol Last Titration: 11/24/21 00:41 Dose: 18 unit/kg/hr, 26.89 mls/hr Documented by: Sodium Chloride (Sodium Chloride 0.9%) 1,000 mls @ 0 mls/hr IV .Q0M PRN PRN Reason: hypotension or symptomatic Isosorbide Mononitrate (Isosorbide Mononitrate Er 60 Mg Tablet) 60 mg PO DAILY [facility] Last Admin: 11/23/21 08:50 Dose: 60 mg Documented by: Lactulose (Lactulose Oral Liq 20 Gm/30 Ml Udc) 10 gm PO TID PRN PRN Reason: Constipation Lisinopril (Lisinopril 20 Mg Tablet) 40 mg PO DAILY [facility] Last Admin: 11/23/21 08:39 Dose: 40 mg Documented by: Minoxidil (Minoxidil 10 Mg Tablet) 2.5 mg PO BID [facility] Last Admin: 11/23/21 18:47 Dose: 2.5 mg Documented by: Nitroglycerin (Nitroglycerin 0.4 Mg Sublingual Tablet) 0.4 mg SUBLINGUAL Q5M PRN PRN Reason: CHEST PAIN Non-Formulary Medication (Umeclidinium [Incruse Ellipta]) 1 inh INHALATION DAILY [facility] Last Admin: 11/23/21 08:51 Dose: Not Given Documented by: Ondansetron HCl (Ondansetron 2 Mg/Ml Sdv 2 Ml) 4 mg IVP Q6H PRN PRN Reason: NAUSEA AND VOMITING Pantoprazole Sodium (Pantoprazole Dr 40 Mg Tablet) 40 mg PO DAILY [facility] Last Admin: 11/23/21 08:38 Dose: 40 mg Documented by: Quetiapine Fumarate (Quetiapine 25 Mg Tablet) 25 mg PO BEDTIME [facility] Last Admin: 11/23/21 21:44 Dose: 25 mg Documented by: Rifaximin (Rifaximin 550 Mg Tablet) 550 mg PO BID [facility]; Protocol Last Admin: 11/23/21 18:47 Dose: 550 mg Documented by: Vitals/I&O/Wt Last Vital Signs Temp 98.4 F 11/23/21 19:21 Pulse 78 11/24/21 06:00 Resp 12 11/24/21 06:00 BP 190/119 11/24/21 06:04 Pulse Ox 97 11/24/21 05:00 11/23/21 11/23/21 11/24/21 14:59 22:59 06:59 Intake Total 853.592 / 212.778 2301.853 / 3585.445 74.083 / 3659.528 Output Total 3300 / 3300 0 / 3300 Balance 853.592 / 853.592 -568.147 / 285.445 74.083 / 359.528 Weight last 48 hrs Weight 75.478 kg Weight 74.6 kg Weight 74.701 kg Weight 74.7 kg Weight 74.843 kg Physical Exam Narrative: sleeping in bed on bipap BP eleavtaed heent- nc/at, eomi neck no jvp lungs crackles heart reg abd soft, nt, nd, +bs ext min edema. LUE AVF w/ thrill and bruit Data : 11/24/21 05:36 11/24/21 05:36 A&P Assessment and plan (1) ESRD on dialysis: Status: Acute Plan 41 yr old man 1. ESRD- s/p HD fri and Sat. repeat hd in am 2. CAD-NSTEMI, HfpEF 3. HTN- cont to remove fluids on dialysis -norvasc, coreg, lisinopril, minoxidil 4. anemia- TREY in am on HD iron sat 10%, check ferritin Attestations Medical Necessity Statement*: chf, esrd Time Spent in Patient Care: 16 - 35 minutes (>than 50% of time spent in counselling and/or direct pt care on unit). Coding Level of Care Code Acute Broke Beater Machine Operator for Chg Fwd Diagnoses ESRD on dialysis N18.6; Z99.2
--- NOTE | 2021-11-24 07:05 | PC.NURSE ---
Bedside report completed with JAGUAR Mercado
[2021-11-24 07:23] LABS: Ferritin 720 ng/mL (30-400)
--- NOTE | 2021-11-24 08:00 | XRR_ITS ---
PROCEDURE INFORMATION: Exam: XR Chest Exam date and time: 11/24/2021 8:16 AM Age: 41 years old Clinical indication: Condition or disease; Lung condition and disease; Pulmonary edema; Chronic; Additional info: Pulm edema TECHNIQUE: Imaging protocol: Radiologic exam of the chest. Views: 1 view. Total images: 114 COMPARISON: CR (CHEST, ) 11/23/2021 7:34 AM FINDINGS: Lungs: Nonspecific bibasilar opacities, favoring atelectasis or pneumonia. Pleural spaces: Unremarkable. No pleural effusion. No pneumothorax. Heart/Mediastinum: Heart is enlarged but stable when compared to the prior exam. Bones/joints: Old right rib fracture evident. XR/XR chest 1V portable [id number] IMPRESSION: 1. Heart is enlarged but stable when compared to the prior exam. 2. Nonspecific bibasilar opacities, favoring atelectasis or pneumonia.
[2021-11-24] MEDS: pantoprazole DR 40 mg Tablet PO (08:03)
[2021-11-24] MEDS: carvedilol 25 mg Tablet PO ×2 (08:03→17:22)
[2021-11-24] MEDS: minoxidil 10 mg Tablet 2.5 MG PO ×2 (08:04→17:21)
[2021-11-24] MEDS: amlodipine 10 mg Tablet PO (08:07)
[2021-11-24] MEDS: CLONazepam 0.5 mg Tablet 1 MG PO ×3 (08:07→21:15)
[2021-11-24] MEDS: clopidogrel 75 mg Tablet PO (08:07)
[2021-11-24] MEDS: lisinopril 20 mg Tablet 40 MG PO (08:08)
[2021-11-24] MEDS: isosorbide mononitrate ER 60 mg Tablet PO (08:08)
[2021-11-24] MEDS: hyDRALAzine 50 mg Tablet PO ×4 (08:09→21:16)
--- NOTE | 2021-11-24 09:18 | PM.PN ---
Subjective Subjective: Patient denies any chest pain . Has a baseline shortness of breath. Currently on BiPAP. No fever or chills. The blood pressure has continues to remain high with a diastolic in the 110s. No new symptoms. Medications: Medication Review Details: Current Medications Albuterol Sulfate (Albuterol 8 Gm Mdi) 2 puff INHALATION QID PRN PRN Reason: Shortness Of Breath Albuterol/Ipratropium (Ipratropium-Albuterol 3 Ml Neb) 3 ml INHALATION Q6H.RESP [facility] Last Admin: 11/24/21 07:33 Dose: 3 ml Documented by: Amlodipine Besylate (Amlodipine 10 Mg Tablet) 10 mg PO DAILY [facility] Last Admin: 11/24/21 08:07 Dose: 10 mg Documented by: Aspirin (Aspirin 325 Mg Tablet) 325 mg PO Q24H [facility] Last Admin: 11/23/21 21:43 Dose: 325 mg Documented by: Atorvastatin Calcium (Atorvastatin 40 Mg Tablet) 40 mg PO BEDTIME [facility] Last Admin: 11/23/21 21:44 Dose: 40 mg Documented by: Carvedilol (Carvedilol 25 Mg Tablet) 25 mg PO BID [facility] Last Admin: 11/24/21 08:03 Dose: 25 mg Documented by: Clonazepam (Clonazepam 0.5 Mg Tablet) 1 mg PO TID [facility] Last Admin: 11/24/21 08:07 Dose: 1 mg Documented by: Clonidine HCl (Clonidine 0.1 Mg Tablet) 0.2 mg PO Q8H PRN PRN Reason: HYPERTENSION Last Admin: 11/24/21 06:04 Dose: 0.2 mg Documented by: Clopidogrel Bisulfate (Clopidogrel 75 Mg Tablet) 75 mg PO DAILY [facility] Last Admin: 11/24/21 08:07 Dose: 75 mg Documented by: Cyclobenzaprine HCl (Cyclobenzaprine 10 Mg Tablet) 10 mg PO Q12H PRN PRN Reason: muscle spasm Diphenhydramine HCl (Diphenhydramine 50 Mg Capsule) 50 mg PO ONCE ONE Stop: 11/24/21 09:17 Fluticasone Propionate (Fluticasone Nasal [place] 16gm Btl) 2 spray INTRANASAL DAILY PRN PRN Reason: Allergy Symptoms Hydralazine HCl (Hydralazine 50 Mg Tablet) 50 mg PO QID [facility] Last Admin: 11/24/21 08:09 Dose: 50 mg Documented by: Sodium Chloride (Sodium Chloride 0.9%) 1,000 mls @ 0 mls/hr IV .Q0M PRN PRN Reason: hypotension or symptomatic Heparin Sodium/Sodium Chloride (Heparin Drip) 25,000 unit in 500 mls @ 0 mls/hr IV .Q0M ARTEM; Protocol Last Titration: 11/24/21 00:41 Dose: 18 unit/kg/hr, 26.89 mls/hr Documented by: Sodium Chloride (Sodium Chloride 0.9%) 1,000 mls @ 0 mls/hr IV .Q0M PRN PRN Reason: hypotension or symptomatic Sodium Chloride (Sodium Chloride 0.9%) 1,000 mls @ 50 mls/hr IV .Q20H ONE Stop: 11/25/21 05:15 Isosorbide Mononitrate (Isosorbide Mononitrate Er 60 Mg Tablet) 60 mg PO DAILY [facility] Last Admin: 11/24/21 08:08 Dose: 60 mg Documented by: Lactulose (Lactulose Oral Liq 20 Gm/30 Ml Udc) 10 gm PO TID PRN PRN Reason: Constipation Lisinopril (Lisinopril 20 Mg Tablet) 40 mg PO DAILY [facility] Last Admin: 11/24/21 08:08 Dose: 40 mg Documented by: Minoxidil (Minoxidil 10 Mg Tablet) 2.5 mg PO BID [facility] Last Admin: 11/24/21 08:04 Dose: 2.5 mg Documented by: Nitroglycerin (Nitroglycerin 0.4 Mg Sublingual Tablet) 0.4 mg SUBLINGUAL Q5M PRN PRN Reason: CHEST PAIN Non-Formulary Medication (Umeclidinium [Incruse Ellipta]) 1 inh INHALATION DAILY [facility] Last Admin: 11/24/21 08:09 Dose: Not Given Documented by: Ondansetron HCl (Ondansetron 2 Mg/Ml Sdv 2 Ml) 4 mg IVP Q6H PRN PRN Reason: NAUSEA AND VOMITING Pantoprazole Sodium (Pantoprazole Dr 40 Mg Tablet) 40 mg PO DAILY [facility] Last Admin: 11/24/21 08:03 Dose: 40 mg Documented by: Quetiapine Fumarate (Quetiapine 25 Mg Tablet) 25 mg PO BEDTIME [facility] Last Admin: 11/23/21 21:44 Dose: 25 mg Documented by: Rifaximin (Rifaximin 550 Mg Tablet) 550 mg PO BID ARTEM; Protocol Last Admin: 11/24/21 08:07 Dose: 550 mg Documented by: Vitals/I&O/Wt Last Vital Signs Temp 98.4 F 11/23/21 19:21 Pulse 66 11/24/21 07:33 Resp 18 11/24/21 07:33 BP 187/108 11/24/21 06:45 Pulse Ox 100 11/24/21 07:33 11/23/21 11/24/21 11/24/21 22:59 06:59 14:59 Intake Total 2731.853 / 3585.445 74.083 / 3659.528 Output Total 3300 / 3300 0 / 3300 Balance -568.147 / 285.445 74.083 / 359.528 Weight last 48 hrs Weight 166 lb 6.4 oz Weight 164 lb 7.437 oz Weight 164 lb 11 oz Weight 164 lb 10.965 oz Weight 165 lb Physical Exam Narrative: GENERAL: The patient is on a BiPAP. Alert and oriented. HEENT: Mild pallor, no icterus or lymphadenopathy.Oral cavity: There are no mucous membrane lesions. NECK: Trachea appears to be central. No masses noted. No JVD or thyromegaly appreciated. RESPIRATORY: Chest is symmetrical. No intercostal muscle retraction or any accessory muscle activation. There is no chest wall tenderness. Breath sounds are heard bilaterally. No rales or rhonchi heard. No evidence of any consolidation. BREASTS: Deferred. HEART: The heart sounds are normal. No S3 or S4. No significant murmurs. No pericardial rub ABDOMEN: No vessel pulsations or distention. No tenderness. No organomegaly appreciated. Bowel sounds are normally heard. : Deferred. RECTAL: Deferred. LYMPHATIC: No lymphadenopathy noted in the neck. EXTREMITIES: No edema or cyanosis. No clubbing. MUSCULOSKELETAL: No acute joint deformities or swelling SKIN: There are no significant rashes or ecchymosis NEUROPSYCHIATRIC: No focal motor deficit. Data : 11/24/21 05:36 11/24/21 05:36 Other Labs: Laboratory Last Values WBC 4.2 10^3/uL (4.0-10.0) 11/24/21 05:36 RBC 3.17 10^6/uL (4.1-5.3) L 11/24/21 05:36 Hgb 8.6 g/dL (11.7-16.6) L 11/24/21 05:36 Hct 26.3 % (42.0-52.0) L 11/24/21 05:36 MCV 83.0 fl (80-94) 11/24/21 05:36 MCH 27.1 pg (28.0-34.0) L 11/24/21 05:36 MCHC 32.7 g/dL (30.0-36.0) 11/24/21 05:36 RDW 18.6 % (12.1-15.1) H 11/24/21 05:36 Plt Count 170 10^3/cmm (130-400) 11/24/21 05:36 MPV 9.5 fL (7.4-10.4) 11/24/21 05:36 Neut % (Auto) 61.4 % 11/24/21 05:36 Lymph % (Auto) 20.9 % 11/24/21 05:36 [place] % (Auto) 10.0 % 11/24/21 05:36 Eos % (Auto) 6.6 % 11/24/21 05:36 Baso % (Auto) 0.9 % 11/24/21 05:36 Neut # (Auto) 2.59 10^3/uL (1.8-7.7) 11/24/21 05:36 Lymph # (Auto) 0.9 10^3/uL (0.8-4.8) 11/24/21 05:36 [place] # (Auto) 0.4 10^3/uL (0.2-0.9) 11/24/21 05:36 Eos # (Auto) 0.3 10^3/uL (0.0-0.8) 11/24/21 05:36 Baso # (Auto) 0.0 10^3/uL (0.0-0.1) 11/24/21 05:36 Nucleated RBC % (auto) 0 % 11/24/21 05:36 Nucleated RBCs # 0.0 /100WBC 11/24/21 05:36 APTT 56.3 SECONDS (23.9-36.7) H 11/24/21 05:36 Sodium 137 mmol/L (136-145) 11/24/21 05:36 Potassium 4.3 mmol/L (3.5-5.1) 11/24/21 05:36 Chloride 96 mmol/L (98-107) L 11/24/21 05:36 Carbon Dioxide 30 mmol/L (22-29) H 11/24/21 05:36 Anion Gap 15.3 (5-19) 11/24/21 05:36 BUN 28 mg/dL (6-20) H 11/24/21 05:36 Creatinine 4.7 mg/dL (0.7-1.2) H 11/24/21 05:36 GFR Calculation 13.9 mL/min (90-130) L 11/24/21 05:36 Glucose 81 mg/dL (65-115) 11/24/21 05:36 Calculated Osmolality 289 mOsm/kg (285-295) 11/24/21 05:36 Calcium 9.3 mg/dL (8.5-10.5) 11/24/21 05:36 Phosphorus 4.6 mg/dL (2.5-4.5) H 11/23/21 04:49 Magnesium 2.1 mg/dL (1.7-2.3) 11/24/21 05:36 Iron 19 ug/dL (59-158) L 11/22/21 21:42 Iron 19 ug/dL (59-158) L 11/22/21 21:42 TIBC 180 mcg/dl 11/22/21 21:42 % Saturation 10.5 % (20-50) L 11/22/21 21:42 Unsat Iron Binding 161 ug/dL (112-347) 11/22/21 21:42 Ferritin 720 ng/mL (30-400) H 11/24/21 06:01 Total Bilirubin 0.7 mg/dL (0.15-1.2) 11/24/21 05:36 AST 11 U/L (0-40) 11/24/21 05:36 ALT 6 U/L (0-41) 11/24/21 05:36 Alkaline Phosphatase 136 IU/L (40-130) H 11/24/21 05:36 Troponin T Gen 5 ng/L 630 ng/L (0-15) H* 11/24/21 05:36 Troponin T Baseline 492 ng/L (0-15) H* 11/22/21 21:42 Troponin T 120 Minute 504.3 ng/L (0-15) H 11/22/21 23:42 Delta Troponin T 12.3 ABS# (0-10) H* 11/22/21 23:42 Troponin T Hi Sens 6Hr 570.6 ng/L (0-15) H 11/23/21 04:49 Troponin T Hi Sens 6Hr Delta 78.6 ng/L (0-12) H* 11/23/21 04:49 NT-Pro-B Natriuret Pep > 14107 pg/mL (0-125) H 11/23/21 04:49 Total Protein 6.7 g/dL (6.6-8.7) 11/24/21 05:36 Albumin 3.5 g/dL (3.5-5.2) 11/24/21 05:36 Globulin 3.2 g/dL (1.3-4.6) 11/24/21 05:36 Procalcitonin 0.40 ng/mL (0-0.5) 11/23/21 04:49 Hep Bs Antigen Non-reactive (Nonreactive) 11/22/21 15:47 A&P Assessment and plan (1) NSTEMI (non-ST elevated myocardial infarction): Patient did present with a troponin to level in the 400 range. He has a history of chronically elevated troponin T. I reviewed his medical records. His baseline troponin T has been ranging anywhere from 56-1 12, except for July 29 of this year. He was in the 170 range. Apparently he never had troponin T going up into the 400 range. He has a delta of 12 and 79 at 2 hours and 6 hours respectively. He has no pain. The shortness of breath has improved. At this point, he may be started on IV heparin. Continue the Plavix and aspirin. He had an echocardiogram and the findings are as mentioned above. He may benefit from a cardiac catheterization, to further evaluate his coronary status and to decide on further management. Will consider cardiac catheterization this afternoon. Status: Acute (2) ESRD on dialysis: Patient had a hemodialysis yesterday. May have a repeat dialysis tomorrow. Status: Acute (3) Acute on chronic diastolic (congestive) heart failure: The uncontrolled blood pressure, ischemia and the renal failure, all are contributing factors. We will try to optimize her antihypertensive medications. I may start her on hydralazine 50 mg p.o. every 8 hours. Change the clonidine to as needed Status: Acute (4) Hypertension: As mentioned above. Status: Acute (5) Atherosclerosis of coronary artery: The most recent cardiac catheterization the July of this year revealed high-grade lesion in the obtuse marginal artery. He underwent a PCI of this lesion. He was found to have no significant coronary artery disease in the other vessels. Possibility of stent thrombosis is a concern. This needs to be further evaluated. Status: Acute Plan The other problems are History of ascites, status post paracentesis, currently resolved. Pleural effusion COPD Small pericardial effusion Discussed with the patient about the cardiac catheterization. The risk of bleeding, hematoma, vascular injury, myocardial infarction, CVA, acute congestive heart failure and other concomitant complications were explained in detail. Patient understood this well and consented to proceed. We may go and schedule the procedure for this afternoon. Continue current medications as it is Attestations Medical Necessity Statement*: Patient requires continued hospital stay for close monitoring and further management Coding Level of Care Code Acute Neurology Director for Chg Fwd History Expanded Problem Focused Exam Detailed Medical Decision Making Moderate Complexity Diagnoses NSTEMI (non-ST elevated myocardial infarction) I21.4 ESRD on dialysis N18.6; Z99.2 Acute on chronic diastolic (congestive) heart failure I50.33 Hypertension I10 Atherosclerosis of coronary artery I25.10
--- NOTE | 2021-11-24 10:50 | PC.NURSE ---
Pt having a temper tantrum about getting food right now. 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 While this nurse attempting to confirm cardiac cath time pt. went back to sleep.
[2021-11-24 12:07] LABS: Partial Thromboplastin Time 66.7 SECONDS (23.9-36.7)
--- NOTE | 2021-11-24 13:50 | P.HPUD_ITS ---
Surgery/Procedure H&P Update DATE OF PROCEDURE: November 24, 2021 DATE H&P PERFORMED: 11/23/21 H&P UPDATE INFORMATION: I have reviewed H&P completed within last 30 days, I have examined patient prior to procedure and No changes to prior documentation PREOP DIAGNOSIS: NSTEMI/CHF/ Recent PCI PRIMARY INDICATION FOR PROCEDURE: NSTEMI/CHF PLANNED PROCEDURE: [facility] with coronary angio and possible PCI PATIENT REASSESSED PRIOR TO SEDATION, WITH NO CHANGE NOTED: Yes PHYSICAL EXAM: alert, oriented x 3, clear to auscultation bilaterally and regular rate & rhythm AIRWAY EVAL/ANESTHESIA PLAN: normal airway, see other exam findings, ASA III, Monitored Anesthesia, Local Anesthesia, Risks, benefits & alternatives of sedation and/or procedure discussed and Patient agrees to continue as planned ADDITIONAL INFORMATION: Pt on hemodialysis
--- NOTE | 2021-11-24 14:10 | XACV_ITS ---
Exam Room: [facility] Ht: 185 cm Wt: 75 kg BSA: 1.96 m2 Gender: Male : 1980 Exam Priority: Routine Procedure(s): Procedure Description: Diagnostic procedure Procedure Description: Left Heart Catheterization Procedure Description: Coronary Angiography Keenan CORTES; Diagnostic Cath Status: Urgent Diagnostic Findings * The left main is extremely short vessel which appears to bifurcate to the LAD and circumflex artery. No significant stenotic lesions were noted. * The left anterior descending artery is a medium to large caliber vessel which appears to wrap around the LV apex minimally. It gives off a large diagonal branch which then trifurcates at the mid segment. Mild diffuse disease intimal irregularities were noted in the proximal to mid LAD.. * The left circumflex artery is a medium caliber orthopedic use of a high obtuse marginal branch. The proximal stented segment of this artery is widely patent. No significant obstructive lesions were noted. The circumflex artery was found to have minimal intimal irregularities.. * The right coronary artery is a medium caliber dominant vessel which is found to have around 20 to 30% irregular narrowing of the mid segment. The distal segment of the artery also was found to have minimal irregular narrowing. No significant stenotic lesions were noted. The right coronary artery is the dominant vessel.. Conclusions 1. 41-year-old white male with history of atherosclerotic heart disease, recent PCI, end-stage renal disease, on hemodialysis, presented with features of congestive heart failure. His troponin T was found to be in the 500 range. He had a PCI of the obtuse marginal artery in July of this year. In view of his presenting symptoms of heart failure and markedly elevated troponin T, in order to further evaluate his coronary status, a repeat cardiac catheterization was recommended. Patient underwent left heart catheterization with a left and right coronary angiogram today. The findings are as follows. 2. Patent stented segment of the first obtuse marginal artery. Mild diffuse disease in the other vessels. Markedly elevated LVEDP of 34 mmHg. Diagnostic RX Recommendation: medical therapy and/or counseling LV EDP: 34 mmHg Left Ventriculography Findings: * LV gram was not performed because of the limitations in the diet usage. The LVEDP was found to be 34 mmHg. Pressures Phase:Rest AO : 124 / 99 ( 113 ) @ 3:45:00 PM 130 / 104 ( 118 ) @ 3:54:00 PM 149 / 92 ( 118 ) @ 3:56:00 PM 149 / 92 ( 118 ) @ 3:56:00 PM LV : 147 / 11 / 34 @ 3:56:00 PM 148 / 10 / 34 @ 3:56:00 PM Valves Phase:DefaultPhase AV : 0.0 @ 3:02:21 PM AV Mean Gradient: 0.0 @ 3:02:21 PM Clinical Evaluation EBL: 5mL-10mL Procedural Details Procedure Consent Obtained. Admit Source: In Patient. Pre-Procedure Time Out. Identified patient by full name and date of as verbalized by the patient/guarantor. Does the consent match the physician's order: Yes. Accurate & Complete Informed Consent: Yes. Inpatient/Outpatient History & Physical on Chart: Yes. If H&P is completed, is and addenduem needed: N/A; If yes, is the addendum complete: N/A. Visualize and Verify Site with Patient/Guarantor: N/A. Relevant Radiology Images available: N/A Emergent; Informed Consent not obtained due to time critical life threat. Pre-op teaching completed and patient verbalized understanding. The risks, benefits, and alternatives of sedation and/or procedure were discussed by physician. The patient agrees to continue. Procedure started. [facility] Clinical Fraility Score: 4: Vulnerable. Price Analyst Indications: Worsening Angina. Chest Pain Symptom Assessment: Typical Angina Symptoms. Correct patient, site and procedure confirmed by cath team. Current diagnosis: NSTEMI. PERRLA. Strong, equal hand pulpwood buyer bilaterally. Lungs clear x 5 lobes. IV Site on Arrival: 20 gauge in the right forearm. IV Fluids: 0.9% NaCl at KVO. 50 mL infused prior to director of cardiac cath lab. Pre Procedural Pulses: right radial was 2+. Pre Procedural Pulses: bilateral dorsalis pedis was 2+. Oxygen started at 2liters/min via nasal canula. right groin was prepped with chloroprep then draped in the usual sterile fashion. right radial was prepped with chloroprep then draped in the usual sterile fashion. Physician notified. Baseline sample Acquired. HR: 68 BPM. Physician arrived. Physician scrubbed in. Immediate Pre-Procedure Time Out. Correct Patient: Yes; Correct Procedure: Yes; Correct Site: Yes; Correct Patient Position: Yes; Correct Supplies: Yes; Dried Flammable Prep: Yes; Blood Products Available: N/A. Lidocaine 1% infiltrated to the right radial. Arterial access obtained. A 5 tajik Lawson catheter in over wire. Multiple views taken of left coronary artery. Catheter out. A 5 tajik JR4 catheter in over wire. Multiple views taken of right coronary artery. EDP Sample taken: LV 147/11,34; HR: 67 BPM; SpO2: 97%. Pullback taken: LV 148/10,34; AO 149/92(118); Mean: 0mmHg, Peak to Peak: 0mmHg, SEP: 7sec/min; HR: 68 BPM; SpO2: 96%. Catheter removed over the standard wire. Physician review of cine films. Post Procedure: Pulses reassessed and unchanged. PERRLA. Strong, equal hand pulpwood buyer bilaterally. No VTE prophylaxis required. Medication's Wasted: Heparin = 1000 u. Medication's Wasted: Nitro = 49.8 mg. Medication's Wasted: Lidocaine 1% = 2 mL. Medication's Wasted: Other = Fentanyl 50mcg. Medication's Wasted: Other = Versed 1 mg. Total IV fluids: 50 mL. A TR Band was successful obtaining hemostatsis at the Right Radial artery insertion site. Post-op diagnosis: Non Obstructive CAD. Complications: none. Estimated blood loss: 5mL-10mL. Responsiveness - Normal response to verbal stimuli; alert and oriented, PERRLA. Airway - Unaffected, no intervention required; spontaneous ventilation. Circulation: W/N/L, pulses unchanged. Nausea/Vomiting: No. Procedure completed. Patient transferred by bed to ICU. Vital chart was stopped. Access Site Site: Right Radial artery Sheath Size: 6 Fr Hemostasis Method: TR Band Hemostasis Success: Successful Procedure Medications Start: 2:36 PM Stop: 2:36 PM Medication: Versed Amount: 1 mg Route: I.V. Start: 2:36 PM Stop: 2:36 PM Medication: Fentanyl Amount: 50 mcg Route: I.V. Start: 2:42 PM Stop: 2:42 PM Medication: Lopressor (metoprolol) Amount: 5 mg Route: I.V. Start: 2:42 PM Stop: 2:42 PM Medication: Verapamil Amount: 5 mg Route: I.A. Start: 2:43 PM Stop: 2:43 PM Medication: Nitrogylcerin Amount: 200 mcg Route: I.A. Start: 2:45 PM Stop: 2:45 PM Medication: Benadryl Amount: 50 mg Route: I.V. Start: 2:45 PM Stop: 2:45 PM Medication: Heparin Amount: 5000 units Route: I.V. I, the attending physician, have reviewed and verified all procedure medications. Yes, all medications given per verbal order History/Risk Factors Hypertension: Yes Dyslipidemia: Yes Peripheral Arterial Disease (PAD): No Myocardial Infarction ([place]): No Obesity: No Renal Disease: Yes Tobacco Use: Current/Recent(w/in 1 year) Dialysis: Current Prior Interventions PCI: Yes Valve Surgery: No Date of PCI: 07/11/2021 Report Signatures Finalized by Dr Ruba Hussein MD [facility] on 11/24/2021 07:04 PM
[2021-11-24] MEDS: diphenhydrAMINE 50 mg Capsule PO (14:13)
[2021-11-24] MEDS: sodium chloride 0.9% 1,000 ML 50 ML IV (14:13)
[2021-11-24] MEDS: heparin drip 25,000 UNIT/500 ML PREMIX 26.89 UNIT IV (14:13)
--- NOTE | 2021-11-24 14:20 | PC.NURSE ---
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 Heparin gtt stopped for procedure.
--- NOTE | 2021-11-24 14:43 | P.PN_ITS ---
Subjective Subjective: Seen this AM. No acute events overnight. Still on bipap. Had dialysis yesterday and day of admission. Going for cath today at 1 pm. Vitals/I&O/Wt Last Vital Signs Temp 97.2 F L 11/24/21 07:00 Pulse 70 11/24/21 14:00 Resp 16 11/24/21 13:32 BP 154/91 11/24/21 12:00 Pulse Ox 98 11/24/21 13:32 11/23/21 11/24/21 11/24/21 22:59 06:59 14:59 Intake Total 2731.853 / 3585.445 74.083 / 3659.528 397.048 / 397.048 Output Total 3300 / 3300 0 / 3300 Balance -568.147 / 285.445 74.083 / 359.528 397.048 / 397.048 Weight last 48 hrs Weight 75.478 kg Weight 74.6 kg Weight 74.701 kg Weight 74.7 kg Physical Exam Narrative: General: Comfortable.? On bipap? at this time, appears tired HEENT: NC/ atraumatic, EOMI, Cardio: Normal S1-S2, no apparent murmurs Respiratory: Bilateral crackles at bases and rhonchi throughout lung cantu, Improved from admission GI: Abdomen soft, nontender, mildly distended, bowel sounds + Extremities:Trace to 1+ pitting edema b/l Data : 11/24/21 05:36 11/24/21 05:36 A&P Assessment and plan (1) Acute on chronic diastolic (congestive) heart failure: Status: Acute (2) NSTEMI (non-ST elevated myocardial infarction): Status: Acute (3) End stage renal disease: Status: Acute (4) Pleural effusion: Status: Acute (5) Exertional dyspnea: Status: Acute (6) COPD (chronic obstructive pulmonary disease): Status: Acute Qualifiers: COPD type: unspecified COPD Qualified Code(s): J44.9 - Chronic obstructive pulmonary disease, unspecified (7) Hypertension: Status: Acute (8) Establishing care with new doctor, encounter for: Status: Acute (9) Nicotine dependence, cigarettes, with other nicotine-induced disorders: Status: Acute (10) Hypertension: Status: Acute (11) Atherosclerosis of coronary artery: Status: Acute Plan #NSTEMI #Hypertensive urgency #Acute on chronic respiratory failure with hypercarbia #End-stage renal disease dialysis dependent Thursday #Pulm Edema #Hx of CAD with recent MARYAM x1 07/23 #Noncompliance to dialysis #Hx of chronic CHF with preserved EF, RV dysfunction - Missed dialysis today.? Not feeling well ? Check iron panel ? Consult nephrology.?Continue dialysis. PLan for dialysis after cath in AM. ? Bilateral pleural effusions present. Worsening pulm edema. BNP > 35079 - Contine on heparin drip to complete 48 hours. Will Consult cardiology for NSTEMI. Initial Trop 465, delta 78 - Check echo, report pending - Continue all home medications - Pt fatigue most likely due to missed dialysis. No signs clinically of infection. Afebrile, no WBC, no cough, no increased sputum production, no dysuria. Will hold off on infectious workup or antibiotics at this time. Procalcitonin negative. - Continue bipap - Duoneb q6h PRN - Recheck labs in AM - CATH TODAY at 1 PM. DIALYSIS IN AM - Patient's had request for paracentesis during this hospital stay but patient refused to have it done. I talked to him today regarding this. Full Code DVT PPX: Heparin Attestations Medical Necessity Statement*: Will need continued hospitalization for management of pulm edema, and NSTEMI. Coding Level of Care Code Acute Retail Account Manager for Cristi Diane Diagnoses Acute on chronic diastolic (congestive) heart failure I50.33 NSTEMI (non-ST elevated myocardial infarction) I21.4 End stage renal disease N18.6 Pleural effusion J90 Exertional dyspnea R06.00 COPD (chronic obstructive pulmonary disease) J44.9 COPD type: unspecified COPD Hypertension I10 Establishing care with new doctor, encounter for Z76.89 Nicotine dependence, cigarettes, with other nicotine-induced disorders F17.218 Hypertension I10 Atherosclerosis of coronary artery I25.10
--- NOTE | 2021-11-24 15:15 | PC.NURSE ---
Pt back from metallurgical lab technician. TR band intact . NO bleeding or hematomas noted. Meal provided.
--- NOTE | 2021-11-24 16:05 | PC.NURSE ---
Awaiting BP improvement to start loosening TR band.
--- NOTE | 2021-11-24 16:52 | PC.NURSE ---
Addendum entered by Carmina Barcenas RN 11/24/21 16:58: Started loosening TR band. Original Note: Pt came back from slabber light with B/P cuff on lower left leg. SBP 180-225. Changed cuff to right upper arm SBP 147.
--- NOTE | 2021-11-24 17:58 | PC.NURSE ---
Pt demanding to go home. Notified Dr Amin, Pt will have to AMA if he goes ow. Call Pt's at his direction, She asked what was going on, informed her of his decision. Leesa, his , said she would be right here. Elfego here, yelled at pt he was staying. Pt decided to stay.
--- NOTE | 2021-11-24 18:03 | PC.NURSE ---
Shift Note Pt spent the majority of his time today resting with eyes closed, in the bed. RT put him on room air and/or 3lpm?NC this am. Pt will put the CPAP mask back on so he can just sleep without being disturbed. Discussed with pt, RT wanted him to wear the O2 during the day not the CPAP. Pt refuses to wear O2 at this time. He has had some HTN episodes, but they were prior to scheduled BP med times. He went to slab lifting engineer today, no new findings, TR band on right wrist. RIght wrist soft with no hematomas or bleeding noted. Heparin gtt discontinued after cath per Dr Hussein, due to no findings. Pt demanding to go home,, Tia, came in at yelled at him to stay. Pt now surly wanting something for anger. Frequent safety and comfort rounds continue. Orders and/or nursing care completed as indicated. Patient monitored for response to intervention and treatment(s). Education provided includes slab lifting engineer, TR band, Minixodil . Patient and/or practice representative verbalized understanding of plan of care at first the pt denied the plan and wanting to D/C. Will continue to monitor.
[2021-11-24 18:55] LABS: Partial Thromboplastin Time 44.4 SECONDS (23.9-36.7)
--- NOTE | 2021-11-24 19:11 | PC.NURSE ---
Bedside report completed with JAGUAR Mercado.
[2021-11-24] MEDS: aspirin 325 mg Tablet PO (21:15)
[2021-11-24] MEDS: quetiapine 25 mg Tablet PO (21:16)
[2021-11-24] MEDS: atorvastatin 40 mg Tablet PO (21:16)
[2021-11-25] VITALS (26 sets, daily range): BP systolic 134–169; BP diastolic 75–123; PULSE 61–75; RESP 8–28; TEMP 36.6; O2SAT 87–99
[2021-11-25] MEDS: ipratropium-albuterol 3 mL Neb INHALATION ×3 (02:29→14:19)
[2021-11-25 05:27] LABS: Basophils % 0.9 %; Eosinophils # 0.4 10^3/uL (0.0-0.8); Hematocrit 27.9 % (42.0-52.0); Hemoglobin 8.6 g/dL (11.7-16.6); Lymphocytes # 0.7 10^3/uL (0.8-4.8); Lymphocytes % 15.8 %; Mean Corpuscular HGB Conc 30.8 g/dL (30.0-36.0); Mean Corpuscular Volume 87.5 fl (80-94); Mean Platelet Volume 9.8 fL (7.4-10.4); Monocytes # 0.4 10^3/uL (0.2-0.9); Monocytes % 9.1 %; Neutrophils # 2.89 10^3/uL (1.8-7.7); Nucleated Red Blood Cells % 0 %; Platelet Count 175 10^3/cmm (130-400); Red Blood Count 3.19 10^6/uL (4.1-5.3); White Blood Count 4.4 10^3/uL (4.0-10.0)
[2021-11-25 05:48] LABS: Calcium 9.3 mg/dL (8.5-10.5)
[2021-11-25 05:54] LABS: Alanine Aminotransferase 6 U/L (0-41); Albumin Level 3.5 g/dL (3.5-5.2); Alkaline Phosphatase 127 IU/L (40-130); Anion Gap 17.1 (5-19); Aspartate Amino Transferase 10 U/L (0-40); Blood Urea Nitrogen 46 mg/dL (6-20); Calcium 9.5 mg/dL (8.5-10.5); Carbon Dioxide 29 mmol/L (22-29); Chloride 95 mmol/L (98-107); Globulin 3.3 g/dL (1.3-4.6); Glomerular Filtration Rate 9.4 mL/min (90-130); Glucose 87 mg/dL (65-115); Magnesium 2.3 mg/dL (1.7-2.3); Osmolality Calculated 293 mOsm/kg (285-295); Phosphorus 5.8 mg/dL (2.5-4.5); Potassium 5.1 mmol/L (3.5-5.1); Sodium 136 mmol/L (136-145); Total Bilirubin 0.5 mg/dL (0.15-1.2); Total Protein 6.8 g/dL (6.6-8.7)
[2021-11-25 05:56] LABS: Parathyroid Hormone 299.6 pg/mL (15-65)
--- NOTE | 2021-11-25 06:43 | P.PN_ITS ---
Subjective Subjective: feels better. s/p cardiac cath yesterday. no n/v/c/f/julio/d/leg pains. improved sob. Medications: Reviewed: Yes Medication Review Details: Current Medications Acetaminophen (Acetaminophen 325 Mg Tablet) 650 mg PO Q6H PRN PRN Reason: MILD PAIN Al Hydrox/Mg Hydrox/Simethicone (Pxjs-Kch-Eslpklbgc-Kortney 30 Ml Udc) 30 ml PO Q15M PRN PRN Reason: INDIGESTION Albuterol Sulfate (Albuterol 8 Gm Mdi) 2 puff INHALATION QID PRN PRN Reason: Shortness Of Breath Albuterol/Ipratropium (Ipratropium-Albuterol 3 Ml Neb) 3 ml INHALATION Q6H.RESP [facility] Last Admin: 11/25/21 02:29 Dose: 3 ml Documented by: Amlodipine Besylate (Amlodipine 10 Mg Tablet) 10 mg PO DAILY [facility] Last Admin: 11/24/21 08:07 Dose: 10 mg Documented by: Aspirin (Aspirin 325 Mg Tablet) 325 mg PO Q24H [facility] Last Admin: 11/24/21 21:15 Dose: 325 mg Documented by: Atorvastatin Calcium (Atorvastatin 40 Mg Tablet) 40 mg PO BEDTIME [facility] Last Admin: 11/24/21 21:16 Dose: 40 mg Documented by: Atropine Sulfate (Atropine 1 Mg/Ml Sdv 1 Ml) 0.5 mg IVP PRN PRN PRN Reason: Symptomatic bradycardia Carvedilol (Carvedilol 25 Mg Tablet) 25 mg PO BID [facility] Last Admin: 11/24/21 17:22 Dose: 25 mg Documented by: Clonazepam (Clonazepam 0.5 Mg Tablet) 1 mg PO TID [facility] Last Admin: 11/24/21 21:15 Dose: 1 mg Documented by: Clonidine HCl (Clonidine 0.1 Mg Tablet) 0.2 mg PO Q8H PRN PRN Reason: HYPERTENSION Last Admin: 11/24/21 15:46 Dose: 0.2 mg Documented by: Clonidine HCl (Clonidine 0.1 Mg/24 Hr Patch) 1 patch TRANSDERMA Q7D [facility] Last Admin: 11/24/21 13:45 Dose: Not Given Documented by: Clopidogrel Bisulfate (Clopidogrel 75 Mg Tablet) 75 mg PO DAILY [facility] Last Admin: 11/24/21 08:07 Dose: 75 mg Documented by: Cyclobenzaprine HCl (Cyclobenzaprine 10 Mg Tablet) 10 mg PO Q12H PRN PRN Reason: muscle spasm Fentanyl (Fentanyl 50 Mcg/Ml Inj 2ml) 50 mcg IVP PRN PRN PRN Reason: Prior to sheath removal Fluticasone Propionate (Fluticasone Nasal [place] 16gm Btl) 2 spray INTRANASAL DAILY PRN PRN Reason: Allergy Symptoms Hydralazine HCl (Hydralazine 50 Mg Tablet) 50 mg PO QID [facility] Last Admin: 11/24/21 21:16 Dose: 50 mg Documented by: Sodium Chloride (Sodium Chloride 0.9%) 1,000 mls @ 0 mls/hr IV .Q0M PRN PRN Reason: hypotension or symptomatic Heparin Sodium/Sodium Chloride (Heparin Drip) 25,000 unit in 500 mls @ 0 mls/hr IV .Q0M ARTEM; Protocol Last Titration: 11/24/21 14:20 Dose: 0 unit/kg/hr, 0 mls/hr Documented by: Sodium Chloride (Sodium Chloride 0.9%) 1,000 mls @ 0 mls/hr IV .Q0M PRN PRN Reason: hypotension or symptomatic Isosorbide Mononitrate (Isosorbide Mononitrate Er 60 Mg Tablet) 60 mg PO DAILY [facility] Last Admin: 11/24/21 08:08 Dose: 60 mg Documented by: Lactulose (Lactulose Oral Liq 20 Gm/30 Ml Udc) 10 gm PO TID PRN PRN Reason: Constipation Lisinopril (Lisinopril 20 Mg Tablet) 40 mg PO DAILY [facility] Last Admin: 11/24/21 08:08 Dose: 40 mg Documented by: Magnesium Hydroxide (Magnesium Hydroxide 30 Ml Udc) 30 ml PO DAILY PRN PRN Reason: CONSTIPATION Minoxidil (Minoxidil 10 Mg Tablet) 2.5 mg PO BID [facility] Last Admin: 11/24/21 17:21 Dose: 2.5 mg Documented by: Naloxone HCl (Naloxone 0.4 Mg/Ml Sdv) 0.1 mg IVP Q2M PRN PRN Reason: RESPIRATORY RATE < 8/MIN Nitroglycerin (Nitroglycerin 0.4 Mg Sublingual Tablet) 0.4 mg SUBLINGUAL Q5M PRN PRN Reason: CHEST PAIN Non-Formulary Medication (Umeclidinium [Incruse Ellipta]) 1 inh INHALATION DAILY [facility] Last Admin: 11/24/21 08:09 Dose: Not Given Documented by: Ondansetron HCl (Ondansetron 2 Mg/Ml Sdv 2 Ml) 4 mg IVP Q6H PRN PRN Reason: NAUSEA AND VOMITING Pantoprazole Sodium (Pantoprazole Dr 40 Mg Tablet) 40 mg PO DAILY [facility] Last Admin: 11/24/21 08:03 Dose: 40 mg Documented by: Quetiapine Fumarate (Quetiapine 25 Mg Tablet) 25 mg PO BEDTIME [facility] Last Admin: 11/24/21 21:16 Dose: 25 mg Documented by: Rifaximin (Rifaximin 550 Mg Tablet) 550 mg PO BID [facility]; Protocol Last Admin: 11/24/21 17:22 Dose: 550 mg Documented by: Vitals/I&O/Wt Last Vital Signs Temp 97.4 F L 11/24/21 15:45 Pulse 63 11/25/21 06:00 Resp 18 11/25/21 06:00 BP 165/104 11/25/21 06:00 Pulse Ox 97 11/25/21 04:30 11/24/21 11/24/21 11/25/21 14:59 22:59 06:59 Intake Total 397.048 / 397.048 740 / 1137.048 240 / 1377.048 Balance 397.048 / 397.048 740 / 1137.048 240 / 1377.048 Weight last 48 hrs Weight 71.486 kg Weight 75.478 kg Weight 74.6 kg Physical Exam Narrative: sleeping in bed on bipap BP eleavtaed heent- nc/at, eomi neck no jvp lungs clear heart reg abd soft, nt, nd, +bs ext min edema. LUE AVF w/ thrill and bruit neuro- a,a, o x 3 Data : 11/25/21 04:50 11/25/21 04:50 A&P Assessment and plan (1) ESRD on dialysis: see below Status: Acute Plan 41 yr old man 1. ESRD- s/p HD fri and Sat. repeat hd now- 4 hrs, 2k, remove 3l 2. CAD-NSTEMI, HfpEF 3. HTN- cont to remove fluids on dialysis -norvasc, coreg, lisinopril, minoxidil- dec if bp drops on hd 4. anemia- TREY on HD iron sat 10%, [id number]- weekly iron 5. phos nash pth 299- outpt hecterol/ zemplar seen and examine dw/ rN- telehealth visit Attestations Medical Necessity Statement*: erd, diastdysfunction- per medicine Time Spent in Patient Care: 16 - 35 minutes (>than 50% of time spent in counselling and/or direct pt care on unit) . Coding Level of Care Code Acute Spray Technician for Chg Fwd Diagnoses ESRD on dialysis N18.6; Z99.2
[2021-11-25] MEDS: ferric gluconate 125 MG in sodium chloride 0.9% (100 ml) 100 ML 110 MG IV (07:26)
[2021-11-25] MEDS: clopidogrel 75 mg Tablet PO (08:36)
[2021-11-25] MEDS: CLONazepam 0.5 mg Tablet 1 MG PO (08:36)
[2021-11-25] MEDS: epoetin alfa 10,000 unit/mL INJ 10000 UNIT SUBCUT (08:36)
[2021-11-25] MEDS: sevelamer 800 mg Tablet 1600 MG PO (08:38)
[2021-11-25] MEDS: minoxidil 10 mg Tablet 2.5 MG PO (08:39)
[2021-11-25] MEDS: amlodipine 10 mg Tablet PO (08:40)
[2021-11-25] MEDS: lisinopril 20 mg Tablet 40 MG PO (08:40)
[2021-11-25] MEDS: hyDRALAzine 50 mg Tablet PO ×2 (08:40→13:42)
[2021-11-25] MEDS: carvedilol 25 mg Tablet PO (08:40)
[2021-11-25] MEDS: pantoprazole DR 40 mg Tablet PO (08:40)
[2021-11-25] MEDS: isosorbide mononitrate ER 60 mg Tablet PO (08:41)
--- NOTE | 2021-11-25 09:26 | P.PN_ITS ---
Subjective Subjective: Patient underwent left heart catheterization with coronary angiogram yesterday. He was found to have patent stented segment of the obtuse marginal artery. Mild disease was noted in the other vessels. His LVEDP is moderately elevated at 34. Based on the angiogram findings, it was decided to optimize his medical treatment Medications: Medication Review Details: Current Medications Acetaminophen (Acetaminophen 325 Mg Tablet) 650 mg PO Q6H PRN PRN Reason: MILD PAIN Al Hydrox/Mg Hydrox/Simethicone (Egni-Tat-Ncrmwkdzg-Kortney 30 Ml Udc) 30 ml PO Q15M PRN PRN Reason: INDIGESTION Albuterol Sulfate (Albuterol 8 Gm Mdi) 2 puff INHALATION QID PRN PRN Reason: Shortness Of Breath Albuterol/Ipratropium (Ipratropium-Albuterol 3 Ml Neb) 3 ml INHALATION Q6H.RESP [facility] Last Admin: 11/25/21 08:50 Dose: 3 ml Documented by: Amlodipine Besylate (Amlodipine 10 Mg Tablet) 10 mg PO DAILY [facility] Last Admin: 11/25/21 08:40 Dose: 10 mg Documented by: Aspirin (Aspirin 325 Mg Tablet) 325 mg PO Q24H [facility] Last Admin: 11/24/21 21:15 Dose: 325 mg Documented by: Atorvastatin Calcium (Atorvastatin 40 Mg Tablet) 40 mg PO BEDTIME [facility] Last Admin: 11/24/21 21:16 Dose: 40 mg Documented by: Atropine Sulfate (Atropine 1 Mg/Ml Sdv 1 Ml) 0.5 mg IVP PRN PRN PRN Reason: Symptomatic bradycardia Carvedilol (Carvedilol 25 Mg Tablet) 25 mg PO BID [facility] Last Admin: 11/25/21 08:40 Dose: 25 mg Documented by: Clonazepam (Clonazepam 0.5 Mg Tablet) 1 mg PO TID [facility] Last Admin: 11/25/21 08:36 Dose: 1 mg Documented by: Clonidine HCl (Clonidine 0.1 Mg Tablet) 0.2 mg PO Q8H PRN PRN Reason: HYPERTENSION Last Admin: 11/24/21 15:46 Dose: 0.2 mg Documented by: Clonidine HCl (Clonidine 0.1 Mg/24 Hr Patch) 1 patch TRANSDERMA Q7D [facility] Last Admin: 11/24/21 13:45 Dose: Not Given Documented by: Clopidogrel Bisulfate (Clopidogrel 75 Mg Tablet) 75 mg PO DAILY [facility] Last Admin: 11/25/21 08:36 Dose: 75 mg Documented by: Cyclobenzaprine HCl (Cyclobenzaprine 10 Mg Tablet) 10 mg PO Q12H PRN PRN Reason: muscle spasm Fentanyl (Fentanyl 50 Mcg/Ml Inj 2ml) 50 mcg IVP PRN PRN PRN Reason: Prior to sheath removal Fluticasone Propionate (Fluticasone Nasal [place] 16gm Btl) 2 spray INTRANASAL DAILY PRN PRN Reason: Allergy Symptoms Hydralazine HCl (Hydralazine 50 Mg Tablet) 50 mg PO QID [facility] Last Admin: 11/25/21 08:40 Dose: 50 mg Documented by: Sodium Chloride (Sodium Chloride 0.9%) 1,000 mls @ 0 mls/hr IV .Q0M PRN PRN Reason: hypotension or symptomatic Heparin Sodium/Sodium Chloride (Heparin Drip) 25,000 unit in 500 mls @ 0 mls/hr IV .Q0M ART[facility]; Protocol Last Titration: 11/24/21 14:20 Dose: 0 unit/kg/hr, 0 mls/hr Documented by: Sodium Chloride (Sodium Chloride 0.9%) 1,000 mls @ 0 mls/hr IV .Q0M PRN PRN Reason: hypotension or symptomatic Isosorbide Mononitrate (Isosorbide Mononitrate Er 60 Mg Tablet) 60 mg PO DAILY [facility] Last Admin: 11/25/21 08:41 Dose: 60 mg Documented by: Lactulose (Lactulose Oral Liq 20 Gm/30 Ml Udc) 10 gm PO TID PRN PRN Reason: Constipation Lisinopril (Lisinopril 20 Mg Tablet) 40 mg PO DAILY [facility] Last Admin: 11/25/21 08:40 Dose: 40 mg Documented by: Magnesium Hydroxide (Magnesium Hydroxide 30 Ml Udc) 30 ml PO DAILY PRN PRN Reason: CONSTIPATION Minoxidil (Minoxidil 10 Mg Tablet) 2.5 mg PO BID [facility] Last Admin: 11/25/21 08:39 Dose: 2.5 mg Documented by: Naloxone HCl (Naloxone 0.4 Mg/Ml Sdv) 0.1 mg IVP Q2M PRN PRN Reason: RESPIRATORY RATE < 8/MIN Nitroglycerin (Nitroglycerin 0.4 Mg Sublingual Tablet) 0.4 mg SUBLINGUAL Q5M PRN PRN Reason: CHEST PAIN Non-Formulary Medication (Umeclidinium [Incruse Ellipta]) 1 inh INHALATION DAILY [facility] Last Admin: 11/25/21 08:22 Dose: Not Given Documented by: Ondansetron HCl (Ondansetron 2 Mg/Ml Sdv 2 Ml) 4 mg IVP Q6H PRN PRN Reason: NAUSEA AND VOMITING Pantoprazole Sodium (Pantoprazole Dr 40 Mg Tablet) 40 mg PO DAILY [facility] Last Admin: 11/25/21 08:40 Dose: 40 mg Documented by: Quetiapine Fumarate (Quetiapine 25 Mg Tablet) 25 mg PO BEDTIME [facility] Last Admin: 11/24/21 21:16 Dose: 25 mg Documented by: Rifaximin (Rifaximin 550 Mg Tablet) 550 mg PO BID [facility]; Protocol Last Admin: 11/25/21 08:37 Dose: 550 mg Documented by: Sevelamer Carbonate (Sevelamer 800 Mg Tablet) 1,600 mg PO TID [facility] Last Admin: 11/25/21 08:38 Dose: 1,600 mg Documented by: Vitals/I&O/Wt Last Vital Signs Temp 97.4 F L 11/24/21 15:45 Pulse 66 11/25/21 08:54 Resp 13 11/25/21 08:45 BP 165/104 11/25/21 06:00 Pulse Ox 87 L 11/25/21 08:54 11/24/21 11/25/21 11/25/21 22:59 06:59 14:59 Intake Total 740 / 1137.048 240 / 1377.048 Balance 740 / 1137.048 240 / 1377.048 Weight last 48 hrs Weight 157 lb 9.6 oz Weight 166 lb 6.4 oz Weight 164 lb 7.437 oz Physical Exam Narrative: GENERAL: The patient is alert and oriented times three. Not in any acute distress. Chronically wasted appearance HEENT: No significant pallor, icterus or lymphadenopathy.Oral cavity: There are no mucous membrane lesions. NECK: Trachea appears to be central. No masses noted. No JVD or thyromegaly appreciated. RESPIRATORY: Chest is symmetrical. No intercostals muscle retraction or any accessory muscle activation. There is no chest wall tenderness. Breath sounds are heard bilaterally. No rales or rhonchi heard. No evidence of any consol idation. BREASTS: Deferred. HEART: The heart sounds are normal. No S3 or S4. No significant murmurs. No pericardial rub ABDOMEN: No vessel pulsations or distention. No tenderness. No organomegaly appreciated. Bowel sounds are normally heard. : Deferred. RECTAL: Deferred. LYMPHATIC: No lymphadenopathy noted in the neck. EXTREMITIES: No edema or cyanosis. No clubbing. MUSCULOSKELETAL: No acute joint deformities or swelling SKIN: There are no significant rashes or ecchymosis NEUROPSYCHIATRIC: The patient is alert and oriented x3. Appears to be in a good mood. No tremors or rigidity noted. Data : 11/25/21 04:50 11/25/21 04:50 A&P Assessment and plan (1) Atherosclerosis of coronary artery: Coronary angiogram revealed a patent stented segment of the circumflex artery. The other vessels were found to have only minimal disease. Status: Acute (2) Acute on chronic diastolic (congestive) heart failure: The heart failure is fairly compensated. May continue the current medications. Status: Acute (3) ESRD on dialysis: Patient is getting hemodialysis at least 3 times a week. This may be continued. He is going to have dialysis today. Status: Acute (4) Hypertension: The blood pressure is usually getting under control. He may continue taking the current medications. Status: Acute (5) COPD (chronic obstructive pulmonary disease): My as per primary Status: Acute Qualifiers: COPD type: unspecified COPD Qualified Code(s): J44.9 - Chronic obstructive pulmonary disease, unspecified Plan In the event of the patient developing any unusual chest pain, palpitations, SOB or any other new symptoms, advised to contact our office. I may see the patient back in the office in 6 months Attestations Medical Necessity Statement*: Possible discharge home today Coding Level of Care Code Acute Paralegals for [facility] Diagnoses Acute on chronic diastolic (congestive) heart failure I50.33 ESRD on dialysis N18.6; Z99.2 Atherosclerosis of coronary artery I25.10 Hypertension I10 COPD (chronic obstructive pulmonary disease) J44.9 COPD type: unspecified COPD
--- NOTE | 2021-11-25 13:32 | PM.PN ---
Subjective Subjective: Patient was seen this morning, currently on BiPAP, he is abdomen is distended, he declines to have a paracentesis, does complain of shortness of breath, did receive dialysis yesterday, Vitals/I&O/Wt Last Vital Signs Temp 97.4 F L 11/24/21 15:45 Pulse 66 11/25/21 08:54 Resp 13 11/25/21 08:45 BP 165/104 11/25/21 06:00 Pulse Ox 87 L 11/25/21 08:54 11/24/21 11/25/21 11/25/21 22:59 06:59 14:59 Intake Total 740 / 1137.048 240 / 1377.048 Balance 740 / 1137.048 240 / 1377.048 Weight last 48 hrs Weight 71.486 kg Weight 75.478 kg Weight 74.6 kg Physical Exam Const: COMMON NORMALS: no acute distress and patient oriented x3 Resp: COMMON NORMALS: normal respiratory effort, No retractions, No use of accessory muscles and clear to auscultation bilaterally AUSCULTATION: clear to auscultation bilaterally Cardio: COMMON NORMALS: regular rate, regular rhythm, S1 normal heart sound present and S2 normal heart sound present RATE: regular rate RHYTHM: regular rhythm HEART SOUNDS: S1 normal heart sound present and S2 normal heart sound present GI: COMMON NORMALS: Normal to inspection, nondistended, normoactive bowel sounds present, Soft to palpation and non-tender PALPATION: Yes Soft to palpation Extremity: COMMON NORMALS: no pedal edema Neuro: COMMON NORMALS: patient oriented x3 Psych: COMMON NORMALS: mental status grossly normal Data : 11/25/21 04:50 11/25/21 04:50 A&P Assessment and plan (1) Acute on chronic diastolic (congestive) heart failure: Status: Acute (2) NSTEMI (non-ST elevated myocardial infarction): Status: Acute (3) End stage renal disease: Status: Acute (4) Pleural effusion: Status: Acute (5) Exertional dyspnea: Status: Acute (6) COPD (chronic obstructive pulmonary disease): Status: Acute Qualifiers: COPD type: unspecified COPD Qualified Code(s): J44.9 - Chronic obstructive pulmonary disease, unspecified (7) Hypertension: Status: Acute (8) Establishing care with new doctor, encounter for: Status: Acute (9) Nicotine dependence, cigarettes, with other nicotine-induced disorders: Status: Acute (10) Hypertension: Status: Acute (11) Atherosclerosis of coronary artery: Status: Acute Plan #NSTEMI #Hypertensive urgency #Acute on chronic respiratory failure with hypercarbia #End-stage renal disease dialysis dependent Thursday #Pulm Edema #Hx of CAD with recent MARYAM x1 07/23 #Noncompliance to dialysis #Hx of chronic CHF with preserved EF, RV dysfunction -Status post cath yesterday, nonobstructive CAD -Still complains of shortness of breath, evidence of fluid overload, will do another 24 hours of inpatient monitoring and dialysis ? Plans on dialysis ? Bilateral pleural effusions present. Worsening pulm edema. BNP > 15552 -Cardiology on consult for NSTEMI. Initial Trop 465, delta 78 -Cardiac echo - ?Normal left ventricular size and systolic function, EF 55 %.? ?Mild to moderate concentric left tubular hypertrophy. ?Thickened mitral valve. Moderate mitral annular calcification. ?Mild biatrial enlargement ?Small pericardial effusion. ?There are no intracardiac masses. ?Compared to the study from 09/04/2021, there may not be a ?significant change in the 2D findings - Continue all home medications - Pt fatigue most likely due to missed dialysis. No signs clinically of infection. Afebrile, no WBC, no cough, no increased sputum production, no dysuria. Will hold off on infectious workup or antibiotics at this time. Procalcitonin negative. - Continue bipap - Duoneb q6h PRN - Patient's had request for paracentesis during this hospital stay but patient refused to have it done. I talked to him today regarding this. Full Code DVT PPX: Heparin Attestations Medical Necessity Statement*: Patient requires position for fluid overload Coding Level of Care Code Acute Drafter Engineering for g Fwd Diagnoses Acute on chronic diastolic (congestive) heart failure I50.33 NSTEMI (non-ST elevated myocardial infarction) I21.4 End stage renal disease N18.6 Pleural effusion J90 Exertional dyspnea R06.00 COPD (chronic obstructive pulmonary disease) J44.9 COPD type: unspecified COPD Hypertension I10 Establishing care with new doctor, encounter for Z76.89 Nicotine dependence, cigarettes, with other nicotine-induced disorders F17.218 Hypertension I10 Atherosclerosis of coronary artery I25.10
--- NOTE | 2021-11-25 15:11 | PM.DCS ---
Discharge Providers Date of Admission: 11/23/21 16:01 Date of Discharge: November 25, 2021 Attending Provider at Admission: Brigitte Amin MD Attending Provider at Discharge: Tunde Umana MD Primary Care Provider: Mal Peres DO Diagnoses at Discharge Discharge Diagnosis (1) Acute on chronic diastolic (congestive) heart failure: Status: Acute (2) NSTEMI (non-ST elevated myocardial infarction): Status: Acute (3) End stage renal disease: Status: Acute (4) Pleural effusion: Status: Acute (5) Exertional dyspnea: Status: Acute (6) COPD (chronic obstructive pulmonary disease): Status: Acute Qualifiers: COPD type: unspecified COPD Qualified Code(s): J44.9 - Chronic obstructive pulmonary disease, unspecified (7) Hypertension: Status: Acute (8) Establishing care with new doctor, encounter for: Status: Acute (9) Nicotine dependence, cigarettes, with other nicotine-induced disorders: Status: Acute (10) Hypertension: Status: Acute (11) Atherosclerosis of coronary artery: Status: Acute Reason for Visit Reason for Visit: panic attack Hospital Course Hospital Course Mal Gibbs is a 41 year old male well-known to the hospital presenting to the hospital today for missing dialysis because dialysis center was closed.? Patient requires hospitalization for fluid overload, missed dialysis, received inpatient dialysis, clinically improved, patient was discharged home Patient was admitted for NSTEMI, underwent cardiac catheterization, no evidence of obstructive CAD, discharged on aspirin, statin, Plavix Patient was found to have acute on chronic respiratory failure with hypercarbia during hospitalization, secondary fluid overload, pulm edema, received inpatient dialysis, overall clinically improved, discharged home with follow-up with outpatient dialysis schedule Physical Exam Const: COMMON NORMALS: no acute distress and patient oriented x3 Resp: COMMON NORMALS: normal respiratory effort, No retractions, No use of accessory muscles and clear to auscultation bilaterally AUSCULTATION: clear to auscultation bilaterally Cardio: COMMON NORMALS: regular rate, regular rhythm, S1 normal heart sound present and S2 normal heart sound present RATE: regular rate RHYTHM: regular rhythm HEART SOUNDS: S1 normal heart sound present and S2 normal heart sound present GI: COMMON NORMALS: Normal to inspection, nondistended, normoactive bowel sounds present, Soft to palpation, non-tender and No hepatosplenomegaly present PALPATION: Yes Soft to palpation and Yes No hepatosplenomegaly present Extremity: COMMON NORMALS: no pedal edema Neuro: COMMON NORMALS: patient oriented x3 Psych: COMMON NORMALS: mental status grossly normal Discharge Data Studies Completed and Pending Completed Studies During Hospitalization Category Date Time Status 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 echo limited [id number] Routine Ultrasound 11/22/21 22:23 Completed Pending at discharge Category Date Time Status Complete Blood Count w/Auto AM LABS Lab 11/26/21 04:00 Ordered Complete Blood Count w/Auto AM LABS Lab 11/27/21 04:00 Ordered Comprehensive Metabolic Panel AM LABS Lab 11/26/21 04:00 Ordered Comprehensive Metabolic Panel AM LABS Lab 11/27/21 04:00 Ordered Magnesium AM LABS Lab 11/26/21 04:00 Ordered Magnesium AM LABS Lab 11/27/21 04:00 Ordered Phosphorus AM LABS Lab 11/26/21 04:00 Ordered Phosphorus AM LABS Lab 11/27/21 04:00 Ordered Radiology Impressions Chest X-Ray 11/24/21 08:00 IMPRESSION: 1. Heart is enlarged but stable when compared to the prior exam. 2. Nonspecific bibasilar opacities, favoring atelectasis or pneumonia. Laboratory Results WBC 4.4 10^3/uL (4.0-10.0) 11/25/21 04:50 RBC 3.19 10^6/uL (4.1-5.3) L 11/25/21 04:50 Hgb 8.6 g/dL (11.7-16.6) L 11/25/21 04:50 Hct 27.9 % (42.0-52.0) L 11/25/21 04:50 MCV 87.5 fl (80-94) D 11/25/21 04:50 MCH 27.0 pg (28.0-34.0) L 11/25/21 04:50 MCHC 30.8 g/dL (30.0-36.0) D 11/25/21 04:50 RDW 19.0 % (12.1-15.1) H 11/25/21 04:50 Plt Count 175 10^3/cmm (130-400) 11/25/21 04:50 MPV 9.8 fL (7.4-10.4) 11/25/21 04:50 Neut % (Auto) 66.0 % 11/25/21 04:50 Lymph % (Auto) 15.8 % 11/25/21 04:50 [place] % (Auto) 9.1 % 11/25/21 04:50 Eos % (Auto) 8.0 % 11/25/21 04:50 Baso % (Auto) 0.9 % 11/25/21 04:50 Neut # (Auto) 2.89 10^3/uL (1.8-7.7) 11/25/21 04:50 Lymph # (Auto) 0.7 10^3/uL (0.8-4.8) L 11/25/21 04:50 [place] # (Auto) 0.4 10^3/uL (0.2-0.9) 11/25/21 04:50 Eos # (Auto) 0.4 10^3/uL (0.0-0.8) 11/25/21 04:50 Baso # (Auto) 0.0 10^3/uL (0.0-0.1) 11/25/21 04:50 Nucleated RBC % (auto) 0 % 11/25/21 04:50 Nucleated RBCs # 0.0 /100WBC 11/25/21 04:50 APTT 44.4 SECONDS (23.9-36.7) H 11/24/21 18:13 Sodium 136 mmol/L (136-145) 11/25/21 04:50 Potassium 5.1 mmol/L (3.5-5.1) 11/25/21 04:50 Chloride 95 mmol/L (98-107) L 11/25/21 04:50 Carbon Dioxide 29 mmol/L (22-29) 11/25/21 04:50 Anion Gap 17.1 (5-19) 11/25/21 04:50 BUN 46 mg/dL (6-20) H 11/25/21 04:50 Creatinine 6.6 mg/dL (0.7-1.2) H* 11/25/21 04:50 GFR Calculation 9.4 mL/min (90-130) L 11/25/21 04:50 Glucose 87 mg/dL (65-115) 11/25/21 04:50 Calculated Osmolality 293 mOsm/kg (285-295) 11/25/21 04:50 Calcium 9.5 mg/dL (8.5-10.5) 11/25/21 04:50 Phosphorus 5.8 mg/dL (2.5-4.5) H 11/25/21 04:50 Magnesium 2.3 mg/dL (1.7-2.3) 11/25/21 04:50 Iron 19 ug/dL (59-158) L 11/22/21 21:42 Iron 19 ug/dL (59-158) L 11/22/21 21:42 TIBC 180 mcg/dl 11/22/21 21:42 % Saturation 10.5 % (20-50) L 11/22/21 21:42 Unsat Iron Binding 161 ug/dL (112-347) 11/22/21 21:42 Ferritin 720 ng/mL (30-400) H 11/24/21 06:01 Total Bilirubin 0.5 mg/dL (0.15-1.2) 11/25/21 04:50 AST 10 U/L (0-40) 11/25/21 04:50 ALT 6 U/L (0-41) 11/25/21 04:50 Alkaline Phosphatase 127 IU/L (40-130) 11/25/21 04:50 Troponin T Gen 5 ng/L 630 ng/L (0-15) H* 11/24/21 05:36 Troponin T Baseline 492 ng/L (0-15) H* 11/22/21 21:42 Troponin T 120 Minute 504.3 ng/L (0-15) H 11/22/21 23:42 Delta Troponin T 12.3 ABS# (0-10) H* 11/22/21 23:42 Troponin T Hi Sens 6Hr 570.6 ng/L (0-15) H 11/23/21 04:49 Troponin T Hi Sens 6Hr Delta 78.6 ng/L (0-12) H* 11/23/21 04:49 NT-Pro-B Natriuret Pep > 94761 pg/mL (0-125) H 11/23/21 04:49 Total Protein 6.8 g/dL (6.6-8.7) 11/25/21 04:50 Albumin 3.5 g/dL (3.5-5.2) 11/25/21 04:50 Globulin 3.3 g/dL (1.3-4.6) 11/25/21 04:50 Procalcitonin 0.40 ng/mL (0-0.5) 11/23/21 04:49 PTH Intact 299.6 pg/mL (15-65) H 11/25/21 04:50 Calcium (PTH Intact) 9.3 mg/dL (8.5-10.5) 11/25/21 04:50 Hep Bs Antigen Non-reactive (Nonreactive) 11/22/21 15:47 Vitals Last Vital Signs Temp 97.9 F 11/25/21 14:00 Pulse 68 11/25/21 14:19 Resp 16 11/25/21 14:19 BP 149/82 11/25/21 14:00 Pulse Ox 96 11/25/21 14:19 Discharge Plan Discharge Patient Disposition: Home Condition: Stable Prescriptions: New hydralazine 50 mg Tablet 50 mg PO QID 30 Days Qty: 120 0RF clonidine 0.1 mg/24 hr Patch Weekly 1 patch transdermal Q7D Qty: 4 0RF sevelamer carbonate 800 mg Tablet 1,600 mg PO TID 30 Days Qty: 180 0RF Continued aspirin 81 mg tablet,delayed release (DR/EC) 81 mg PO DAILY Qty: 30 4RF pantoprazole 40 mg tablet,delayed release (DR/EC) 40 mg PO DAILY Qty: 30 4RF Incruse Ellipta 62.5 mcg/actuation blister with device 1 inh INHALATION DAILY Qty: 30 2RF albuterol sulfate [ProAir HFA] 90 mcg/actuation HFA aerosol inhaler 2 puff INHALATION QID PRN (Reason: Shortness Of Breath) Qty: 2 4RF cyclobenzaprine 10 mg tablet 10 mg PO Q12H PRN (Reason: muscle spasm) Qty: 30 2RF amlodipine 10 mg tablet 10 mg PO DAILY 30 Days Qty: 30 0RF Xifaxan 550 mg tablet 550 mg PO BID 0RF atorvastatin 40 mg Tablet 40 mg PO BEDTIME Qty: 30 0RF clopidogrel 75 mg Tablet 75 mg PO DAILY Qty: 30 0RF carvedilol 25 mg tablet 25 mg PO BID 30 Days Qty: 60 0RF isosorbide mononitrate 60 mg tablet extended release 24 hr 60 mg PO DAILY 0RF fluticasone propionate 50 mcg/actuation spray,suspension 2 spray INTRANASAL DAILY PRN (Reason: Allergy Symptoms) 0RF clonazepam 0.5 mg tablet 1 mg PO TID Qty: 90 0RF quetiapine [Seroquel] 25 mg tablet 25 mg PO BEDTIME 0RF nitroglycerin 0.4 mg Tablet, Sublingual 0.4 mg SUBLINGUAL Q5M PRN (Reason: Chest Pain) 0RF Rx Instructions: do not exceed 3 doses per episode lisinopril 40 mg Tablet 40 mg PO DAILY 0RF lactulose 20 gram/30 mL Solution 10 g PO TID PRN (Reason: Constipation) 0RF Auryxia 210 mg iron Tablet 420 mg PO TID 0RF Rx Instructions: administer with a meal minoxidil 2.5 mg Tablet 2.5 mg PO BID 0RF Discontinued clonidine HCl 0.2 mg tablet 0.2 mg PO TID 0RF Discharge Orders: Discharge Order (Routine); Ordered 11/25/21 Ordered By: Tunde Umana Referrals: Mal Peres DO [Primary Care Provider] - Ruba Hussein MD [Physician] - 2 weeks Discharge Diet: Cardiac Discharge Activity: Resume usual activity Patient Instructions: Opioid Safety Activity Restrictions/Additional Instructions: -Please follow-up with your primary care provider in 1 week -Please follow-up with cardiology in 6 weeks -Please follow-up with dialysis schedule Discharge Attestations Time Spent in Discharge Care*: less than 30 min Status at Discharge: Cognitive status at discharge: cognitively intact, Behavioral status at discharge: cooperative, Quality Metrics Clinical Quality Measures [ No reported AMI, CVA or VTE this stay] Coding Level of Care Code Acute Chg FW DC note Diagnoses Acute on chronic diastolic (congestive) heart failure I50.33 NSTEMI (non-ST elevated myocardial infarction) I21.4 End stage renal disease N18.6 Pleural effusion J90 Exertional dyspnea R06.00 COPD (chronic obstructive pulmonary disease) J44.9 COPD type: unspecified COPD Hypertension I10 Establishing care with new doctor, encounter for Z76.89 Nicotine dependence, cigarettes, with other nicotine-induced disorders F17.218 Hypertension I10 Atherosclerosis of coronary artery I25.10
--- NOTE | 2021-11-25 15:45 | PC.NURSE ---
Pt discharged. Discharge instructions provided and discussed. Follow-up appt with [facility] made. Patient needs to call Dr Perez's office to make follow-up, as staff unable to bet through to make appt. New prescriptions discussed. Pt and stated he would not take the clonidine patch as it was what caused his pressure to go down so quick and give him a heart attack last time he had it. Carenotes on new medications , heart healthy diet , stoplight provided. Pt and declined to discuss.
--- NOTE | 2021-11-25 16:12 | PC.NURSE ---
Pt called and notified of discahrge medication change to Clonidine .1 mg TID PO PRN for hypertension emrgency. Pt verbalized understanding
== END 2021-11-25 15:51 | disposition home or self-care (01) | DRG 280 ==
LOC: ER 13:23 → ICU 14:01
PROVIDERS: Internal Medicine; Internal Medicine Cardiovascular Disease; Internal Medicine Nephrology; Admitting Provider Internal Medicine; Emergency Provider Physician Assistant; PCP Family Medicine; Visit Provider Family Medicine
PROC: 4A023N7 Measurement of Cardiac Sampling and Pressure, Left Heart, Percutaneous Approach (ICD-10-PCS; principal; 2021-11-24 14:30)
DX: I21.4 Non-ST elevation (NSTEMI) myocardial infarction (principal); I50.33 Acute on chronic diastolic (congestive) heart failure; N18.6 End stage renal disease; J96.21 Acute and chronic respiratory failure with hypoxia; I13.2 Hypertensive heart and chronic kidney disease with heart failure and with stage 5 chronic kidney disease, or end stage renal disease; E11.22 Type 2 diabetes mellitus with diabetic chronic kidney disease; I50.84 End stage heart failure; Z99.2 Dependence on renal dialysis; Z91.15 Patient's noncompliance with renal dialysis; I25.10 Atherosclerotic heart disease of native coronary artery without angina pectoris; Z95.5 Presence of coronary angioplasty implant and graft; F41.0 Panic disorder [episodic paroxysmal anxiety]; F41.8 Other specified anxiety disorders; G89.29 Other chronic pain; D63.1 Anemia in chronic kidney disease; J44.9 Chronic obstructive pulmonary disease, unspecified; Z86.16 Personal history of COVID-19; K21.9 Gastro-esophageal reflux disease without esophagitis; Z99.89 Dependence on other enabling machines and devices; Z79.02 Long term (current) use of antithrombotics/antiplatelets; Z79.51 Long term (current) use of inhaled steroids; Z79.82 Long term (current) use of aspirin; D50.9 Iron deficiency anemia, unspecified; I16.0 Hypertensive urgency; F17.210 Nicotine dependence, cigarettes, uncomplicated; Z86.711 Personal history of pulmonary embolism; Z87.440 Personal history of urinary (tract) infections; I27.20 Pulmonary hypertension, unspecified
CPT/HCPCS: 36415; 71045; 71046; 80048; 80053; 82310; 82728; 83540; 83550; 83735; 83880; 83970; 84100; 84145; 84484; 85025; 85730; 87340; 93005; 93308; 93452; 93458; 94640; 94660; 94664; 96360; 96372; 99152; 99153; 99291; 99292; C1769; C1887; C1894; G0378; J1200; J1644; J1756; J2250; J2916; J3010; J3490; J7030; Q0163; Q3014; Q4081; Q9967

== ENCOUNTER 2021-12-01 11:02 | Emergency (ER) | payer MEDICARE, MEDICAID, SELFPAY ==
[2021-12-01 11:16] VITALS: BP 206/113; PULSE 91; RESP 20; O2SAT 91; BMI 21.7
--- NOTE | 2021-12-01 11:33 | XRR_ITS ---
PROCEDURE INFORMATION: Exam: XR Right Knee Exam date and time: 12/01/2021 12:03 PM Age: 41 years old Clinical indication: Injury or trauma; Fall; Blunt trauma; Knee; Right TECHNIQUE: Imaging protocol: Radiologic exam of the Right knee. Views: 3 views. COMPARISON: No relevant prior studies available. FINDINGS: Bones/joints: Negative for acute bone abnormality Soft tissues: Normal. XR/XR knee RT 3V* [id number] IMPRESSION: No acute findings.
--- NOTE | 2021-12-01 11:33 | XRR_ITS ---
PROCEDURE INFORMATION: Exam: XR Left Knee Exam date and time: 12/01/2021 12:04 PM Age: 41 years old Clinical indication: Injury or trauma; Fall; Blunt trauma; Knee; Left TECHNIQUE: Imaging protocol: Radiologic exam of the Left knee. Views: 3 views. COMPARISON: No relevant prior studies available. FINDINGS: Bones/joints: Normal. Soft tissues: Normal. XR/XR knee LT 3V* [id number] IMPRESSION: No acute findings.
[2021-12-01 12:07] VITALS: BP 187/123
[2021-12-01] MEDS: cloNIDine 0.1 mg Tablet PO (12:07)
--- NOTE | 2021-12-01 12:07 | ED_ITS ---
HPI - Fall General: Chief Complaint: Fall Stated Complaint: fall Time Seen by Provider: 12/01/21 11:22 History of Present Illness: 41-year-old male presents with bilateral knee pain but today left is greater than right. Patient reports he has had pain in his knees and ankles for a while. That last night he fell and has worse pain in his left knee today. He has full range of motion. He reports he came in just because it continued to hurt. Patient also has a history of elevated blood pressure and is on a significant number of blood pressure medications. He reports that he did not take his blood pressure medications this morning because he just woke up and came to the ER because of his knee pain. Patient with no other acute complaints. Associated symptoms-after fall: Denies abdominal pain, chest pain, headache(s) or lightheadedness Review of Systems Const: Denies: fever(s) or chills Eyes: Denies: change in vision ENMT: Denies: throat pain or ear or mastoid pain Card: Denies: chest pain, palpitations or lightheadedness Resp: Denies: dyspnea or wheezing GI: Denies: abdominal pain, nausea or vomiting Musc: Reports: joint pain (Please see HPI) Skin/Breast: Denies: rash Neuro: Denies: headache(s) or numbness in extremities PFSH ED PFSH: Medical History (HFpEF) heart failure with preserved ejection fraction Abdominal ascites Abdominal distention Abnormality of rib determined by X-ray Acute and chronic respiratory failure with hypoxia Acute diastolic CHF (congestive heart failure) Anasarca Anemia Anxiety with depression Arteriovenous fistula for hemodialysis in place, secondary Ascites Atherosclerosis of coronary artery Chronic abdominal pain Chronic respiratory failure Congestive heart failure COPD (chronic obstructive pulmonary disease) COPD (chronic obstructive pulmonary disease) COVID 05/25 Current smoker Degenerative disc disease, lumbar End-stage renal disease needing dialysis End-stage renal disease on hemodialysis ESRD on dialysis ESRD on dialysis Generalized anxiety disorder with panic attacks GERD without esophagitis Gross hematuria Hemoptysis Hepatomegaly Hyperkalemia Hypertension Hypertensive emergency Ileus PHT (pulmonary hypertension) Pneumonia Pulmonary embolism 09/21 Inconclusive for very tiny peripheral LEFT lower lobe pulmonary artery sub segmental emboli versus poor opacification. Right heart failure with reduced right ventricular function Smoking addiction Transaminitis Urethral stricture Surgical History H/O hand surgery Amputation right 2&3 fingers 2017 History of adenoidectomy Stented coronary artery Family History Father No problems noted. Other Hypertension Social History Smoking and tobacco status: current every day smoker cigarettes Packs smoked per day: 1.5 Years cigarettes smoked: 21 [ Other cigarette details: started age 20, currently 0.5ppd ] Alcohol intake: never Marital status: Number of children: 3 Current occupational status: disabled History of recent travel: No Physical Exam Const: COMMON NORMALS: no acute distress, patient oriented x3 and no limitations HENMT: HEAD & SCALP: normal to inspection Eye: GENERAL EYE: appearance normal, both eyes and all related structures Resp: COMMON NORMALS: normal respiratory effort, No use of accessory muscles and clear to auscultation bilaterally AUSCULTATION: clear to auscultation bilaterally Cardio: COMMON NORMALS: regular rate and regular rhythm RATE: regular rate RHYTHM: regular rhythm Extremity: NARRATIVE EXTREMITY EXAM: Tenderness to bilateral knees but no acute findings, ligament weakness or deformity noted GENERAL: Yes normal exam except as noted Neuro: COMMON NORMALS: patient oriented x3, moves all extremities and no focal motor deficits Psych: COMMON NORMALS: cooperative APPEARANCE: Yes unkempt and Yes disheveled ATTITUDE: Yes calm Course Vital Signs: Vital signs: Vital Signs Pulse Rate 91 12/01/21 11:16 Respiratory Rate 20 H 12/01/21 11:16 Blood Pressure 193/113 12/01/21 12:30 Pulse Oximetry 87 L 12/01/21 12:30 Oxygen Delivery Me thod 12/01/21 11:16 MDM - Fall Medical Decision Making Patient with no acute findings on x-rays. Patient with chronic knee pain. Patient with uncontrolled hypertension has not taken his home meds today. Patient to be discharged home. Recommend he goes home and takes his daily blood pressure medications. Patient stable and discharged home Discharge Plan Discharge Patient Disposition: Home Clinical Impression: Fall, Hypertension, Low back pain, Knee buckling, Knee pain, bilateral Condition: Stable Prescriptions: No Action aspirin 81 mg tablet,delayed release (DR/EC) 81 mg PO DAILY Qty: 30 4RF pantoprazole 40 mg tablet,delayed release (DR/EC) 40 mg PO DAILY Qty: 30 4RF Incruse Ellipta 62.5 mcg/actuation blister with device 1 inh INHALATION DAILY Qty: 30 2RF albuterol sulfate [ProAir HFA] 90 mcg/actuation HFA aerosol inhaler 2 puff INHALATION QID PRN (Reason: Shortness Of Breath) Qty: 2 4RF cyclobenzaprine 10 mg tablet 10 mg PO Q12H PRN (Reason: muscle spasm) Qty: 30 2RF amlodipine 10 mg tablet 10 mg PO DAILY 30 Days Qty: 30 0RF Xifaxan 550 mg tablet 550 mg PO BID atorvastatin 40 mg Tablet 40 mg PO BEDTIME Qty: 30 0RF clopidogrel 75 mg Tablet 75 mg PO DAILY Qty: 30 0RF carvedilol 25 mg tablet 25 mg PO BID 30 Days Qty: 60 0RF isosorbide mononitrate 60 mg tablet extended release 24 hr 60 mg PO DAILY fluticasone propionate 50 mcg/actuation spray,suspension 2 spray INTRANASAL DAILY PRN (Reason: Allergy Symptoms) clonazepam 0.5 mg tablet 1 mg PO TID Qty: 90 0RF quetiapine [Seroquel] 25 mg tablet 25 mg PO BEDTIME nitroglycerin 0.4 mg Tablet, Sublingual 0.4 mg SUBLINGUAL Q5M PRN (Reason: Chest Pain) Rx Instructions: do not exceed 3 doses per episode lisinopril 40 mg Tablet 40 mg PO DAILY lactulose 20 gram/30 mL Solution 10 g PO TID PRN (Reason: Constipation) Auryxia 210 mg iron Tablet 420 mg PO TID Rx Instructions: administer with a meal minoxidil 2.5 mg Tablet 2.5 mg PO BID hydralazine 50 mg Tablet 50 mg PO QID 30 Days Qty: 120 0RF sevelamer carbonate 800 mg Tablet 1,600 mg PO TID 30 Days Qty: 180 0RF clonidine HCl 0.1 mg tablet 0.1 mg PO TID PRN (Reason: hypertensive emergency) 30 Days Qty: 90 0RF Rx Instructions: for sbp>180 or dbp>100, hold if HR<60 Discharge Orders: Discharge ED (Routine); Ordered 12/01/21 Ordered By: Jose Reyes Referrals: Jennings,Mal W, DO [Primary Care Provider] - Discharge Diet: Advance as tolerated Discharge Activity: Resume usual activity Patient Instructions: Opioid Safety, Fall Prevention (ED), Knee Pain (ED), Hypertension (ED) Activity Restrictions/Additional Instructions: 4% topical lidocaine with menthol, cream gel or patch. Use as needed for pain, use as directed on package Follow-up with your primary care provider for further evaluation of your chronic knee pain and continued management of your high blood pressure Coding Level of Care Code ED Auto Clutch Specialist for Chg Fwd Exam Comprehensive
[2021-12-01 12:09] VITALS: O2SAT 90
[2021-12-01 12:30] VITALS: BP 193/113; O2SAT 87
[2021-12-01 13:00] VITALS: BP 191/114; O2SAT 88
== END 2021-12-01 13:21 | disposition home or self-care (01) ==
PROVIDERS: Emergency Provider Student in an Organized Health Care Education/Training Program; PCP Family Medicine
DX: M25.561 Pain in right knee (principal); M25.562 Pain in left knee; I10 Essential (primary) hypertension; M54.50 Low back pain, unspecified; Z79.82 Long term (current) use of aspirin; Z79.02 Long term (current) use of antithrombotics/antiplatelets; I25.10 Atherosclerotic heart disease of native coronary artery without angina pectoris; J44.9 Chronic obstructive pulmonary disease, unspecified; I13.2 Hypertensive heart and chronic kidney disease with heart failure and with stage 5 chronic kidney disease, or end stage renal disease; N18.6 End stage renal disease; I50.31 Acute diastolic (congestive) heart failure; Z99.2 Dependence on renal dialysis; F17.210 Nicotine dependence, cigarettes, uncomplicated
CPT/HCPCS: 73562; 99283

== ENCOUNTER → 2021-12-03 10:47 | Day surgery (SDC) | payer MEDICARE, MEDICAID, SELFPAY ==
[2021-11-29 09:28] VITALS: BMI 21.7
--- NOTE | 2021-12-03 10:59 | US_ITS ---
WS: [id number] Abdominal ultrasound, limited. History: Evaluate for ascites. Comparison: None. All 4 quadrants are imaged by ultrasound to evaluate for ascites. Very small amount of ascites in all 4 quadrants. Insufficient amount for paracentesis. US/US abdomen lmt fluid [id number] IMPRESSION: Insufficient amount of ascites for paracentesis.
[2021-12-03 11:07] VITALS: BP 157/98; PULSE 82; RESP 18; TEMP 36.1; O2SAT 94
== END ==
PROVIDERS: PCP Family Medicine; Visit Provider Internal Medicine Nephrology
PROC: (CPT 49082; principal; 2021-12-03 12:30)
DX: R18.8 Other ascites (principal)
CPT/HCPCS: 76705

== ENCOUNTER 2022-01-02 10:59 | Day surgery (SDC) | payer MEDICARE, MEDICAID, SELFPAY ==
[2022-01-02 11:12] VITALS: BP 172/100; PULSE 73; RESP 18; TEMP 37.1; O2SAT 95
--- NOTE | 2022-01-02 11:14 | US_ITS ---
WS: [id number] ULTRASOUND-GUIDED PARACENTESIS CLINICAL INFORMATION: ascites COMPARISON: None. Procedure Informed consent: The risks, benefits, and alternatives of the procedure were discussed with the mariah ent. Verbal and written consent was obtained. Timeout: A timeout was performed to confirm the correct patient, procedure, and site. Preparation: A suitable skin site was identified. The patient was prepped and draped in usual sterile fashion. Lidocaine 1% was used for local anesthesia. Catheter: 4 Cymraes One-step Yueh catheter. Side: LEFT Lower quadrant. Fluid Volume: 3250 ml Color: Bonny DISPOSITION: Discarded safely. Complications: None. Patient disposition: Discharged from the department in stable condition. US/US paracentesis abd w [id number] IMPRESSION: Uncomplicated ultrasound-guided paracentesis. Removal of 3250 cc ascites
[2022-01-02 12:42] VITALS: BMI 21.8
== END 2022-01-02 12:50 | disposition home or self-care (01) ==
PROVIDERS: PCP Family Medicine; Visit Provider Internal Medicine Nephrology
PROC: (CPT 49082; principal; 2022-01-02 12:00)
DX: I25.10 Atherosclerotic heart disease of native coronary artery without angina pectoris (principal); I50.9 Heart failure, unspecified; F17.210 Nicotine dependence, cigarettes, uncomplicated
CPT/HCPCS: 49083; 96365; 99213; P9047

== ENCOUNTER 2022-02-04 09:57 | Day surgery (SDC) | payer MEDICARE, MEDICAID, SELFPAY ==
[2022-01-31 13:46] VITALS: BMI 19.8
--- NOTE | 2022-02-04 10:39 | US_ITS ---
WS: [id number] Abdominal ultrasound, limited. History: Evaluate for ascites. Comparison: None. All 4 quadrants are imaged by ultrasound to evaluate for ascites. There is only very small amount of ascites within the peritoneal cavity. Insufficient for paracentesis. Also the patient is on Plavix. US/US abdomen lmt fluid [id number] IMPRESSION: Minimal peritoneal ascites. No paracentesis performed today.
--- NOTE | 2022-02-04 11:04 | PC.NURSE ---
Patient arrived to GI Lab for Para. During intake, patient stated he had issues yesterday after he got home for Dialysis with bleeding from access site for 1.5 hours. Patient stated he was bleeding enough to soak up a whole roll of paper towels . Pt stated I was scared . Pt also stated he felt dizzy and lightheaded yesterday. Pt denies any symptoms today. Called Dr Cruz's office and spoke with nurse. Stated to check H&H. US completed and determined insufficient fluids and r/t patient being on blood thinner, PARA canceled. Will update Dr Cruz's office on H&H results. Patient denies needs at this time.
[2022-02-04 11:24] LABS: Hemoglobin 8.2 g/dL (11.7-16.6)
--- NOTE | 2022-02-04 11:53 | PC.NURSE ---
Hbg 8.[address] Anthony Sanz. No new orders at this time.
--- NOTE | 2022-02-04 11:55 | PC.NURSE ---
Report of hemoglobin and hematocrit was called to Dr. Cruz's office. This RN spoke to
== END 2022-02-04 11:02 | disposition home or self-care (01) ==
LOC: GILAB 10:23
PROVIDERS: Radiology Diagnostic Radiology; PCP Family Medicine; Visit Provider Internal Medicine Nephrology
DX: R18.8 Other ascites (principal)
CPT/HCPCS: 36415; 49083; 76705; 85014; 85018

== ENCOUNTER 2022-02-21 10:17 | Emergency (ER) | payer MEDICARE, MEDICAID, SELFPAY ==
[2022-02-21] VITALS (60 sets, daily range): BP systolic 167–208; BP diastolic 103–146; PULSE 81–93; RESP 0–35; O2SAT 84–100; BMI 23.7
--- NOTE | 2022-02-21 10:20 | XR_ITS ---
WS: [id number] Portable AP upright chest, 02/21/2022 Clinical Data: dyspnea/cough Comparison: None. Findings: No nodules, masses or effusions are seen. The heart is enlarged. The pulmonary vascularity is slightly increased. No pneumonia or pneumothorax is seen. There is an old right posterior lateral seventh rib fracture. Monitor leads are on the chest wall. XR/XR chest 1V portable [id number] Impression: Cardiomegaly with mild pulmonary vascular congestion.
--- NOTE | 2022-02-21 10:21 | ECG_ITS ---
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 Measurements Intervals [place] Rate: 91 P: 53 WA: 184 QRS: 71 QRSD: 109 T: 60 QT: 374 QTc: 462 Interpretive Statements SINUS RHYTHM Compared to ECG 11/23/2021 09:28:30 Poor R-wave progression no longer present T-wave abnormality no longer present Electronically Signed On 02-21-2022 16:50:05 CDT by Ruba Hussein M.D. [id number]
--- NOTE | 2022-02-21 10:21 | ED_ITS ---
HPI - SOB/Dyspnea General: Chief Complaint: Shortness of Breath/Dyspnea Stated Complaint: difficulty breathing Time Seen by Provider: 02/21/22 10:20 Source: patient Mode of arrival: EMS History of Present Illness: HPI Narrative: 41-year-old male presents emergency room complaining of shortness of breath d ifficulty breathing. He is tripod breathing when he arrives here he is CPAP in place. EMS reports when they initially encountered him he was moderately hypoxic gasping for breath. Patient is well-known to our services he has a history of COPD end-stage renal disease and liver cirrhosis. He has a history of chronic diastolic congestive heart failure as well. He denies any chest pain at this time. He is due for dialysis today has noticed increased swelling in his legs. MD elicited complaint: shortness of breath and cough Pertinent past history: COPD Onset (ago): hour(s) Timing: constant Severity: severe Exacerbating factors: lying flat, exertion and coughing Relieving factors: oxygen, rest, upright position and medication Known history of: COPD and other (End-stage renal disease) Associated symptoms: Reports chest congestion and cough; Deny abdominal pain, chest pain, diaphoresis, dizziness, extremity pain, fever(s), hemoptysis, lightheadedness, myalgias, nausea, orthopnea, palpitations, paresthesias, polydipsia, polyuria, rash, syncope or vomiting Treatment prior to arrival: oxygen Review of Systems Const: Denies: fever(s), chills, fatigue, malaise or diaphoresis ENMT: Denies: throat pain, ear or mastoid pain, nasal discharge or nasal congestion Card: Denies: chest pain, palpitations, lightheadedness, syncope or orthopnea Resp: Reports: chest congestion; Denies: hemoptysis GI: Denies: abdominal pain, nausea or vomiting : Denies: flank pain, difficulty urinating, dysuria, urinary frequency or urinary urgency Musc: Denies: neck pain, back pain or extremity pain Skin/Breast: Denies: rash or pruritus Neuro: Denies: dizziness Endo: Denies: polyuria or polydipsia [facility] ED PFSH: Medical History (Updated 03/04/22 @ 09:05 by Pato Rivera DO) (HFpEF) heart failure with preserved ejection fraction Abdominal ascites Abdominal distention Abnormality of rib determined by X-ray Acute and chronic respiratory failure with hypoxia Acute diastolic CHF (congestive heart failure) Anasarca Anemia Anxiety with depression Arteriovenous fistula for hemodialysis in place, secondary Ascites Atherosclerosis of coronary artery Chronic abdominal pain Chronic respiratory failure Congestive heart failure COPD (chronic obstructive pulmonary disease) COPD (chronic obstructive pulmonary disease) COVID 05/25 Current smoker Degenerative disc disease, lumbar End-stage renal disease needing dialysis End-stage renal disease on hemodialysis ESRD on dialysis ESRD on dialysis Generalized anxiety disorder with panic attacks GERD without esophagitis Gross hematuria Hemoptysis Hepatomegaly Hyperkalemia Hypertension Hypertensive emergency Ileus PHT (pulmonary hypertension) Pneumonia Pulmonary embolism 09/21 Inconclusive for very tiny peripheral LEFT lower lobe pulmonary artery sub segmental emboli versus poor opacification. Right heart failure with reduced right ventricular function Smoking addiction Transaminitis Urethral stricture Surgical History H/O hand surgery Amputation right 2&3 fingers 2016 History of adenoidectomy Stented coronary artery Family History Father No problems noted. Other Hypertension Social History Smoking and tobacco status: never smoked Alcohol intake: never Marital status: Number of children: 3 Current occupational status: disabled History of recent travel: No Course Vital Signs: Vital signs: Vital Signs Pulse Rate 81 02/21/22 22:19 Respiratory Rate 20 H 02/21/22 22:19 Blood Pressure 167/103 02/21/22 22:19 Pulse Oximetry 94 02/21/22 22:19 Oxygen Delivery Me thod 02/21/22 10:56 Fraction of Inspir ed Oxygen 50 02/21/22 19:57 MDM - SOB/Dyspnea Medical Decision Making Unfortunately we are unable to run today. He continues to have difficulty breathing we gave him several anxiety lytics that did help some BiPAP did not seem to help him maintain his sats good he was hypertensive which we also treated. Patient arranged to transfer to tertiary care center with hemodialysis available. Dialysis hemodialysis here in the inpatient side at this time. He will have to be transferred he is missed his dialysis. Patient intermittently complaining of difficulty breathing and sats remain good anxiety lytics difficulty with symptoms patient has presented multiple times in the past with similar issues. Medical Records I reviewed the patient's medical records. Lab Data I reviewed the patient's lab results. : 02/21/22 10:15 02/21/22 10:15 Labs/Radiology: Radiology Impressions Chest X-Ray 02/21/22 10:20 Impression: Cardiomegaly with mild pulmonary vascular congestion. Laboratory Results WBC 5.0 10^3/uL (4.0-10.0) 02/21/22 10:15 RBC 3.62 10^6/uL (4.1-5.3) L 02/21/22 10:15 Hgb 9.6 g/dL (11.7-16.6) L 02/21/22 10:15 Hct 31.3 % (42.0-52.0) L 02/21/22 10:15 MCV 86.5 fl (80-94) 02/21/22 10:15 MCH 26.5 pg (28.0-34.0) L 02/21/22 10:15 MCHC 30.7 g/dL (30.0-36.0) 02/21/22 10:15 RDW 18.9 % (12.1-15.1) H 02/21/22 10:15 Plt Count 280 10^3/cmm (130-400) 02/21/22 10:15 MPV 9.7 fL (7.4-10.4) 02/21/22 10:15 Neut % (Auto) 69.6 % 02/21/22 10:15 Lymph % (Auto) 13.6 % 02/21/22 10:15 [place] % (Auto) 6.8 % 02/21/22 10:15 Eos % (Auto) 8.2 % 02/21/22 10:15 Baso % (Auto) 1.4 % 02/21/22 10:15 Neut # (Auto) 3.48 10^3/uL (1.8-7.7) 02/21/22 10:15 Lymph # (Auto) 0.7 10^3/uL (0.8-4.8) L 02/21/22 10:15 [place] # (Auto) 0.3 10^3/uL (0.2-0.9) 02/21/22 10:15 Eos # (Auto) 0.4 10^3/uL (0.0-0.8) 02/21/22 10:15 Baso # (Auto) 0.1 10^3/uL (0.0-0.1) 02/21/22 10:15 Nucleated RBC % (auto) 0 % 02/21/22 10:15 Nucleated RBCs # 0.0 /100WBC 02/21/22 10:15 Specimen Type Arterial 02/21/22 10:13 Sample Site Radial, right 02/21/22 10:13 ABG pH 7.45 (7.35-7.45) 02/21/22 10:13 ABG pCO2 49.1 mmHg (35-45) H 02/21/22 10:13 ABG pO2 133.0 mmHg (80.0-100.0) H 02/21/22 10:13 ABG HCO3 33.8 mmol/L (22-26) H 02/21/22 10:13 ABG O2 Saturation > 100.0 02/21/22 10:13 ABG Base Excess 8.7 mmol/L (-2.0-2.0) H 02/21/22 10:13 Alexei Test Pos 02/21/22 10:13 A-a O2 Gradient 11.7 mmHg (5-10) H 02/21/22 10:13 Hematocrit 27.2 % (42-52) L 02/21/22 10:13 Hgb O2 Saturation 96.1 % (95-100) 02/21/22 10:13 Carboxyhemoglobin 3.1 %THgb (0.4-20.1) 02/21/22 10:13 Methemoglobin 0.9 % (0.4-1.5) 02/21/22 10:13 Total Hemoglobin 8.9 g/dL (14-18) L 02/21/22 10:13 Sodium 134.0 mmol/L (131-143) 02/21/22 10:13 Potassium 4.3 mmol/L (3.5-5.0) 02/21/22 10:13 Glucose 100.0 mg/dL (70-115) 02/21/22 10:13 Ionized Calcium 1.3 mmol/L (1.1-1.4) 02/21/22 10:13 O2 Delivery Device Bipap 02/21/22 10:13 FiO2 40.0 % 02/21/22 10:13 Rf Test Technician ID Rosa Isela 02/21/22 10:13 Sodium 134 mmol/L (136-145) L 02/21/22 10:15 Potassium 4.7 mmol/L (3.5-5.1) 02/21/22 10:15 Chloride 89 mmol/L (98-107) L 02/21/22 10:15 Carbon Dioxide 31 mmol/L (22-29) H 02/21/22 10:15 Anion Gap 18.7 (5-19) 02/21/22 10:15 BUN 28 mg/dL (6-20) H 02/21/22 10:15 Creatinine 5.9 mg/dL (0.7-1.2) H* 02/21/22 10:15 GFR Calculation 10.7 mL/min (90-130) L 02/21/22 10:15 Glucose 109 mg/dL (65-115) 02/21/22 10:15 Calculated Osmolality 284 mOsm/kg (285-295) L 02/21/22 10:15 Lactic Acid 0.8 mmol/L (0.5-2.2) 02/21/22 10:25 Calcium 10.6 mg/dL (8.5-10.5) H 02/21/22 10:15 Magnesium 2.3 mg/dL (1.7-2.3) 02/21/22 10:15 Total Bilirubin 0.5 mg/dL (0.15-1.2) 02/21/22 10:15 AST 21 U/L (0-40) 02/21/22 10:15 ALT 8 U/L (0-41) 02/21/22 10:15 Alkaline Phosphatase 159 U/L (40-130) H 02/21/22 10:15 Ammonia 25 umol/L (16-60) 02/21/22 10:15 Total Protein 8.4 g/dL (6.6-8.7) 02/21/22 10:15 Albumin 3.9 g/dL (3.5-5.2) 02/21/22 10:15 Globulin 4.5 g/dL (1.3-4.6) 02/21/22 10:15 Lipase 25 U/L (13-60) 02/21/22 10:15 Discharge Plan Discharge Patient Disposition: Xfer Short-Term Hosp Clinical Impression: CKD (chronic kidney disease) stage 5, GFR less than 15 ml/min, ESRD on dialysis, COPD (chronic obstructive pulmonary disease), Hypertension, Chronic respiratory failure, Abdominal ascites, Lumbar back pain Condition: Stable Referrals: Mal Peres DO [Primary Care Provider] - Coding Level of Care Code ED Pet Counselor for Cristi Diane
[2022-02-21 10:27] LABS: ABG PCO2 49.1 mmHg (35-45); ABG PH Result 7.45 (7.35-7.45); Alveolar-Arterial Oxygen Gradi 11.7 mmHg (5-10); Arterial Blood Gas Hematocrit 27.2 % (42-52); Base Excess ABG 8.7 mmol/L (-2.0-2.0); Blood Gas Allen Test Pos; Blood Gas Operator Identificat MONRO; Blood Gas Sample Site Radial, right; Blood Gas Sample Type Arterial; Carboxyhemoglobin 3.1 %THgb (0.4-20.1); HCO3 ABG 33.8 mmol/L (22-26); HGB O2 Sat 96.1 % (95-100); Ionized Calcium Level - ABG 1.3 mmol/L (1.1-1.4); Methemoglobin 0.9 % (0.4-1.5); Oxygen Device BIPAP; Oxygen Saturation ABG > 100.0; Potassium Level - ABG 4.3 mmol/L (3.5-5.0); Total Hemoglobin 8.9 g/dL (14-18)
[2022-02-21 10:32] LABS: Basophils # 0.1 10^3/uL (0.0-0.1); Basophils % 1.4 %; Eosinophils # 0.4 10^3/uL (0.0-0.8); Eosinophils % 8.2 %; Hematocrit 31.3 % (42.0-52.0); Hemoglobin 9.6 g/dL (11.7-16.6); Lymphocytes # 0.7 10^3/uL (0.8-4.8); Lymphocytes % 13.6 %; Mean Corpuscular HGB Conc 30.7 g/dL (30.0-36.0); Mean Corpuscular Hemoglobin 26.5 pg (28.0-34.0); Mean Corpuscular Volume 86.5 fl (80-94); Mean Platelet Volume 9.7 fL (7.4-10.4); Monocytes # 0.3 10^3/uL (0.2-0.9); Monocytes % 6.8 %; Neutrophils # 3.48 10^3/uL (1.8-7.7); Neutrophils % 69.6 %; Nucleated Red Blood Cells % 0 %; Platelet Count 280 10^3/cmm (130-400); Red Blood Count 3.62 10^6/uL (4.1-5.3); Red Cell Distribution Width 18.9 % (12.1-15.1)
[2022-02-21] MEDS: midazolam 1 mg/mL INJ 2 mL IVP (10:32)
[2022-02-21 10:52] LABS: Ammonia 25 umol/L (16-60)
[2022-02-21] MEDS: hyDRALAzine 20 mg/mL INJ 1 mL IVP ×2 (10:52→18:52)
[2022-02-21 10:54] LABS: Lactic Sepsis W/Reflex 0.8 mmol/L (0.5-2.2)
[2022-02-21 10:56] LABS: Alanine Aminotransferase 8 U/L (0-41); Albumin Level 3.9 g/dL (3.5-5.2); Alkaline Phosphatase 159 U/L (40-130); Aspartate Amino Transferase 21 U/L (0-40); Blood Urea Nitrogen 28 mg/dL (6-20); Calcium 10.6 mg/dL (8.5-10.5); Carbon Dioxide 31 mmol/L (22-29); Chloride 89 mmol/L (98-107); Globulin 4.5 g/dL (1.3-4.6); Glomerular Filtration Rate 10.7 mL/min (90-130); Glucose 109 mg/dL (65-115); Lipase 25 U/L (13-60); Magnesium 2.3 mg/dL (1.7-2.3); Osmolality Calculated 284 mOsm/kg (285-295); Sodium 134 mmol/L (136-145); Total Bilirubin 0.5 mg/dL (0.15-1.2); Total Protein 8.4 g/dL (6.6-8.7)
[2022-02-21 10:58] LABS: Anion Gap 18.7 (5-19); Potassium 4.7 mmol/L (3.5-5.1)
--- NOTE | 2022-02-21 11:00 | PC.NURSE ---
critical lab creatinine 5.9
[2022-02-21] MEDS: morphine 4 mg/mL SDV 1 mL IVP ×2 (11:13→13:01)
[2022-02-21] MEDS: labetalol 5 mg/mL SDV 20mL 10 MG IVP ×3 (12:01→18:52)
[2022-02-21] MEDS: LORazepam 2 mg Tablet PO (12:46)
[2022-02-21] MEDS: midazolam 1 mg/mL INJ 2 mL 2 MG IVP (15:40)
[2022-02-21] MEDS: labetalol 5 mg/mL SDV 20mL 20 MG IVP (22:09)
== END 2022-02-21 22:40 | disposition short-term general hospital (02) ==
PROVIDERS: Emergency Provider Family Medicine; PCP Family Medicine
DX: J44.9 Chronic obstructive pulmonary disease, unspecified (principal); I13.2 Hypertensive heart and chronic kidney disease with heart failure and with stage 5 chronic kidney disease, or end stage renal disease; N18.6 End stage renal disease; I50.9 Heart failure, unspecified; J96.10 Chronic respiratory failure, unspecified whether with hypoxia or hypercapnia; R18.8 Other ascites; M54.50 Low back pain, unspecified; I25.10 Atherosclerotic heart disease of native coronary artery without angina pectoris; Z99.2 Dependence on renal dialysis
CPT/HCPCS: 36600; 71045; 80051; 80053; 82140; 82330; 82805; 83605; 83690; 83735; 85025; 93005; 94660; 96374; 96375; 96376; 99291; J0360; J2250; J2270; J3490

== ENCOUNTER 2022-03-06 12:04 | Day surgery (SDC) | payer MEDICARE, MEDICAID, SELFPAY ==
[2022-03-04 12:24] VITALS: BMI 22.4
[2022-03-06 12:20] VITALS: BP 196/110; PULSE 84; RESP 18; TEMP 37.1; O2SAT 94
--- NOTE | 2022-03-06 12:24 | US_ITS ---
WS: [id number] ULTRASOUND-GUIDED THERAPEUTIC PARACENTESIS Procedure, risks, and complications have been explained to the patient. Consent is obtained. Utilizing aseptic technique and 1% buffered lidocaine, a small dermatome was made through which a 5 F rench Yueh catheter was inserted. Approximately 3400 ml of clear peritoneal fluid was obtained witho ut difficulty. No complications encountered. US/US paracentesis abd w [id number] IMPRESSION: Uncomplicated paracentesis yielding 3400 ml of peritoneal fluid.
== END 2022-03-06 12:39 | disposition home or self-care (01) ==
LOC: GILAB 12:07
PROVIDERS: PCP Family Medicine; Visit Provider Internal Medicine Nephrology
PROC: (CPT 49082; principal; 2022-03-06 12:00)
DX: R18.8 Other ascites (principal)
CPT/HCPCS: 49083; P9046

== ENCOUNTER 2022-03-14 13:47 | Inpatient (IN) | payer MEDICARE, MEDICAID, SELFPAY ==
[2022-03-14] VITALS (54 sets, daily range): BP systolic 178–208; BP diastolic 107–126; PULSE 78–97; RESP 13–26; TEMP 36.7–36.8; O2SAT 81–100; BMI 24.4
--- NOTE | 2022-03-14 14:02 | XRR_ITS ---
PROCEDURE INFORMATION: Exam: XR Chest Exam date and time: 03/14/2022 3:06 PM Age: 41 years old Clinical indication: Cough and dyspnea and shortness of breath; Additional info: Dyspnea/cough TECHNIQUE: Imaging protocol: Radiologic exam of the chest. Views: 1 view. COMPARISON: CR XR chest 1V portable [id number] 02/21/2022 11:20 AM FINDINGS: Lungs: Unremarkable. No consolidation. Pleural spaces: Unremarkable. No pleural effusion. No pneumothorax. Heart/Mediastinum: Unremarkable. No cardiomegaly. Bones/joints: Unremarkable. XR/XR chest 1V portable [id number] IMPRESSION: No acute findings.
[2022-03-14 14:39] LABS: Basophils % 0.8 %; Eosinophils # 0.4 10^3/uL (0.0-0.8); Eosinophils % 8.2 %; Hematocrit 32.9 % (42.0-52.0); Hemoglobin 10.4 g/dL (11.7-16.6); Lymphocytes # 0.5 10^3/uL (0.8-4.8); Lymphocytes % 8.6 %; Mean Corpuscular HGB Conc 31.6 g/dL (30.0-36.0); Mean Corpuscular Hemoglobin 27.2 pg (28.0-34.0); Mean Corpuscular Volume 85.9 fl (80-94); Mean Platelet Volume 9.4 fL (7.4-10.4); Monocytes # 0.4 10^3/uL (0.2-0.9); Monocytes % 7.8 %; Neutrophils # 3.91 10^3/uL (1.8-7.7); Neutrophils % 74.4 %; Nucleated Red Blood Cells % 0 %; Platelet Count 183 10^3/cmm (130-400); Red Blood Count 3.83 10^6/uL (4.1-5.3); Red Cell Distribution Width 19.2 % (12.1-15.1); White Blood Count 5.3 10^3/uL (4.0-10.0)
--- NOTE | 2022-03-14 14:41 | PC.NURSE ---
received report 1440 from [facility]
--- NOTE | 2022-03-14 14:41 | PC.PHAR ---
PT UNABLE TO VERIFY MEDS- PTS CONTACTS ARE UNREACHABLE- MEDS VERIFIED USING EXTERNAL MED LIST LAST FILLED
[2022-03-14 14:58] LABS: Alanine Aminotransferase 11 U/L (0-41); Alkaline Phosphatase 138 U/L (40-130); Anion Gap 16.2 (5-19); Aspartate Amino Transferase 16 U/L (0-40); Blood Urea Nitrogen 30 mg/dL (6-20); Calcium 9.9 mg/dL (8.5-10.5); Carbon Dioxide 32 mmol/L (22-29); Chloride 86 mmol/L (98-107); Globulin 3.9 g/dL (1.3-4.6); Glomerular Filtration Rate 9.8 mL/min (90-130); Glucose 72 mg/dL (65-115); Osmolality Calculated 273 mOsm/kg (285-295); Potassium 5.2 mmol/L (3.5-5.1); Sodium 129 mmol/L (136-145); Total Bilirubin 0.6 mg/dL (0.15-1.2); Total Protein 7.9 g/dL (6.6-8.7)
--- NOTE | 2022-03-14 15:04 | ECG_ITS ---
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 Measurements Intervals [place] Rate: 77 P: 8 WA: 206 QRS: -13 QRSD: 109 T: -5 QT: 392 QTc: 444 Interpretive Statements SINUS RHYTHM with a borderline first-degree AV block Poor R wave progression Compared to ECG 02/21/2022 11:30:40 No significant changes Electronically Signed On 03-15-2022 15:00:23 PATIENT ACCOUNTS SPECIALIST by Ruba Hussein M.D. [email or web address], [id number]
[2022-03-14 15:25] LABS: INR 1.15 (0.8-1.2)
[2022-03-14 15:26] LABS: Partial Thromboplastin Time 45.3 SECONDS (23.9-36.7)
--- NOTE | 2022-03-14 15:30 | ED_ITS ---
HPI - Chest Pain General: Chief Complaint: Chest Pain Stated Complaint: chest pain Time Seen by Provider: 03/14/22 14:01 Source: patient and EMS Mode of arrival: EMS History of Present Illness: 41-year-old male well-known to our service. He has a history of end-stage renal disease and end-stage liver failure he is on dialysis. He had hemodialysis today and was poorly responsive. There is a complaint of chest pain and shortness of breath he only completed 1 of 3 to 4 hours. They did pull off 2 L of fluid at dialysis today. He is difficult to arouse here. He says he has some chest discomfort. He is requiring 3 to 4 L by nasal cannula to maintain his oxygen sat. He denies any abdominal pain or extremity pain denies any other recent illness. MD complaint: chest discomfort Onset (ago): hour(s) Timing of current episode: episodic Prior episodes: Yes Onset: during rest Pain location: substernal Pain radiation: left arm and left shoulder Severity: moderate Quality: aching and heaviness Relieving factors: nothing Exacerbating factors: nothing Associated symptoms: Reports dyspnea, nausea, palpitations and sense of impending doom; Deny abdominal pain, diaphoresis, fever(s), leg edema, syncope or vomiting Treatment prior to arrival: none Review of Systems General: Reports: ROS unobtainable due to mental status Const: Reports: fatigue and malaise; Denies: fever(s), chills or diaphoresis ENMT: Denies: throat pain, ear or mastoid pain, nasal discharge or nasal congestion Card: Reports: chest pain and palpitations; Denies: syncope Resp: Reports: dyspnea GI: Reports: nausea; Denies: abdominal pain or vomiting : Denies: flank pain, dysuria, urinary frequency or urinary urgency Skin/Breast: Denies: rash or pruritus Psych: Reports: anxiety PFSH ED PFSH: Medical History (HFpEF) heart failure with preserved ejection fraction Abdominal ascites Abdominal distention Abnormality of rib determined by X-ray Acute and chronic respiratory failure with hypoxia Acute diastolic CHF (congestive heart failure) Anasarca Anemia Anxiety with depression Arteriovenous fistula for hemodialysis in place, secondary Ascites Atherosclerosis of coronary artery Chronic abdominal pain Chronic respiratory failure Congestive heart failure COPD (chronic obstructive pulmonary disease) COPD (chronic obstructive pulmonary disease) COVID 05/25 Current smoker Degenerative disc disease, lumbar End-stage renal disease needing dialysis End-stage renal disease on hemodialysis ESRD on dialysis ESRD on dialysis Generalized anxiety disorder with panic attacks GERD without esophagitis Gross hematuria Hemoptysis Hepatomegaly Hyperkalemia Hypertension Hypertensive emergency Ileus PHT (pulmonary hypertension) Pneumonia Pulmonary embolism 09/21 Inconclusive for very tiny peripheral LEFT lower lobe pulmonary artery sub segmental emboli versus poor opacification. Right heart failure with reduced right ventricular function Smoking addiction Transaminitis Urethral stricture Surgical History H/O hand surgery Amputation right 2&3 fingers 2017 History of adenoidectomy Stented coronary artery Family History Father No problems noted. Other Hypertension Social History Smoking and tobacco status: current every day smoker cigarettes Packs smoked per day: 1.5 Years cigarettes smoked: 21 [ Other cigarette details: started age 20, currently 0.5ppd ] Alcohol intake: never Marital status: Number of children: 3 Current occupational status: disabled History of recent travel: No Physical Exam Const: GENERAL APPEARANCE: cooperative ORIENTATION/CONSCIOUSNESS: Yes awake, Yes oriented to person, Yes oriented to place and Yes oriented to time HENMT: COMMON NORMALS: normocephalic, atraumatic and hearing grossly normal bilaterally HEAD & SCALP: normocephalic and atraumatic Resp: EFFORT & INSPECTION: Yes abnormal respiratory pattern and Yes pursed lip breathing AUSCULTATION: rhonchi, wheezes and diminished lung sounds Cardio: COMMON NORMALS: regular rate, regular rhythm and No murmurs present (Cardio) RATE: regular rate RHYTHM: regular rhythm GI: COMMON NORMALS: Soft to palpation and No hepatosplenomegaly present AUSCULTATION: Yes normoactive bowel sounds PALPATION: Yes Soft to palpation, No Tenderness to palpation present (GI), No Guarding due to palpation present (GI) and Yes No hepatosplenomegaly present Extremity: COMMON NORMALS: normal to inspection, capillary refill normal, no clubbing, cyanosis or edema, no calf tenderness and no pedal edema Neuro: SENSORIUM/ORIENTATION: Yes oriented to person, Yes oriented to place and Yes oriented to time Skin: COMMON NORMALS: no rashes or lesions noted GENERAL SKIN EXAM: no rashes or lesions noted Course Vital Signs: Vital signs: Vital Signs Temperature 98.9 F 03/19/22 13:34 Pulse Rate 96 03/19/22 13:34 Respiratory Rate 18 03/19/22 13:34 Blood Pressure 160/81 03/19/22 13:34 Pulse Oximetry 99 03/19/22 13:34 Oxygen Delivery Me thod 03/19/22 11:42 Oxygen Flow Rate 4 03/19/22 08:00 Fraction of Inspir ed Oxygen 30 03/19/22 02:44 MDM - Chest Pain Medical Decision Making End-stage renal disease was concurrent end-stage liver disease. CT showed right lower lobe pneumonia has been started on antibiotics. Consult salt nephrology admit to hospitalist discussed with both Services orders written. EKG reviewed no acute changes. Medical Records I reviewed the patient's medical records. Lab Data I reviewed the patient's lab results. 03/19/22 02:09 03/19/22 02:09 Radiology Impressions Chest X-Ray 03/14/22 14:02 IMPRESSION: No acute findings. Head CT 03/14/22 16:20 IMPRESSION: Negative for acute intracranial abnormality Chest CTA 03/14/22 17:04 IMPRESSION: 1. Negative for pulmonary embolism. 2. Heavy coronary artery calcifications. 3. Negative for right heart strain 4. Right lower lobe pneumonia. 5. Diffuse abdominal ascites Laboratory Results PT 15.10 SECONDS (12.1-14.9) H 03/14/22 14:00 INR 1.15 (0.8-1.2) 03/14/22 14:00 APTT 45.3 SECONDS (23.9-36.7) H 03/14/22 14:00 Specimen Type Arterial 03/14/22 18:17 Sample Site Radial, right 03/14/22 18:17 ABG pH 7.44 (7.35-7.45) 03/14/22 18:17 ABG pCO2 47.1 mmHg (35-45) H 03/14/22 18:17 ABG pO2 83.2 mmHg (80.0-100.0) 03/14/22 18:17 ABG HCO3 31.6 mmol/L (22-26) H 03/14/22 18:17 ABG O2 Saturation 97.6 03/14/22 18:17 ABG Base Excess 6.5 mmol/L (-2.0-2.0) H 03/14/22 18:17 Alexei Test Pos 03/14/22 18:17 A-a O2 Gradient 14.0 mmHg (5-10) H 03/14/22 18:17 Hematocrit 30.4 % (42-52) L 03/14/22 18:17 Hgb O2 Saturation 94.3 % (95-100) L 03/14/22 18:17 Carboxyhemoglobin 2.5 %THgb (0.4-20.1) 03/14/22 18:17 Methemoglobin 0.9 % (0.4-1.5) 03/14/22 18:17 Total Hemoglobin 9.9 g/dL (14-18) L 03/14/22 18:17 Sodium 130.0 mmol/L (131-143) L 03/14/22 18:17 Potassium 5.2 mmol/L (3.5-5.0) H 03/14/22 18:17 Glucose 64.0 mg/dL (70-115) L 03/14/22 18:17 Ionized Calcium 1.2 mmol/L (1.1-1.4) 03/14/22 18:17 O2 Delivery Device Bipap 03/14/22 18:17 O2 Liters/Min 5.0 % 03/14/22 16:30 FiO2 35.0 % 03/14/22 18:17 Therapeutic Massage Technician ID [facility] 03/14/22 18:17 Sodium 129 mmol/L (136-145) L 03/14/22 14:00 Potassium 5.2 mmol/L (3.5-5.1) H 03/14/22 14:00 Chloride 86 mmol/L (98-107) L 03/14/22 14:00 Carbon Dioxide 32 mmol/L (22-29) H 03/14/22 14:00 Anion Gap 16.2 (5-19) 03/14/22 14:00 BUN 30 mg/dL (6-20) H 03/14/22 14:00 Creatinine 6.4 mg/dL (0.7-1.2) H* 03/14/22 14:00 GFR Calculation 9.8 mL/min (90-130) L 03/14/22 14:00 Glucose 72 mg/dL (65-115) 03/14/22 14:00 Calculated Osmolality 273 mOsm/kg (285-295) L 03/14/22 14:00 Lactic Acid 0.5 mmol/L (0.5-2.2) 03/14/22 15:19 Calcium 9.9 mg/dL (8.5-10.5) 03/14/22 14:00 Total Bilirubin 0.6 mg/dL (0.15-1.2) 03/14/22 14:00 AST 16 U/L (0-40) 03/14/22 14:00 ALT 11 U/L (0-41) 03/14/22 14:00 Alkaline Phosphatase 138 U/L (40-130) H 03/14/22 14:00 Ammonia 23 umol/L (16-60) 03/14/22 19:15 Total Protein 7.9 g/dL (6.6-8.7) 03/14/22 14:00 Albumin 4.0 g/dL (3.5-5.2) 03/14/22 14:00 Globulin 3.9 g/dL (1.3-4.6) 03/14/22 14:00 Procalcitonin 0.32 ng/mL (0-0.5) 03/14/22 14:00 Discharge Plan Discharge Patient Disposition: Admitted As Inpatient Admit Provider: Emanuel Nation Clinical Impression: Pneumonia, Hypertension, COPD (chronic obstructive pulmonary disease), CKD (chronic kidney disease) stage 5, GFR less than 15 ml/min, Acute on chronic diastolic (congestive) heart failure, ESRD on dialysis, Generalized anxiety disorder with panic attacks Condition: Stable Discharge Diet: Cardiac Discharge Activity: Resume usual activity Coding Level of Care Code ED Grass Farmer for Cristi Diane
[2022-03-14 15:52] LABS: Ammonia 35 umol/L (16-60)
[2022-03-14 15:53] LABS: Lactic Sepsis W/Reflex 0.5 mmol/L (0.5-2.2)
--- NOTE | 2022-03-14 16:20 | CTR_ITS ---
PROCEDURE INFORMATION: Exam: CT Head Without Contrast Exam date and time: 03/14/2022 4:45 PM Age: 41 years old Clinical indication: Altered mental status/memory loss; Additional info: AMS TECHNIQUE: Imaging protocol: Computed tomography of the head without contrast. Radiation optimization: All CT scans at this facility use at least one of these dose optimization techniques: automated exposure control; mA and/or kV adjustment per patient size (includes targeted exams where dose is matched to clinical indication); or iterative reconstruction. COMPARISON: CT head wo con* [id number] 09/01/2021 5:34 PM RADIATION DOSE METRICS: Total DLP (mGy-cm): 1141.58 FINDINGS: Brain: Normal. No hemorrhage. Unremarkable white matter. No mass effect. Cerebral ventricles: No ventriculomegaly. Paranasal sinuses: Visualized sinuses are unremarkable. No fluid levels. Mastoid air cells: Visualized mastoid air cells are well aerated. Bones/joints: Unremarkable. No acute fracture. Soft tissues: Unremarkable. CT/CT head wo con* [id number] IMPRESSION: Negative for acute intracranial abnormality
[2022-03-14 16:41] LABS: ABG PCO2 51.1 mmHg (35-45); ABG PH Result 7.42 (7.35-7.45); Alveolar-Arterial Oxygen Gradi 6.1 mmHg (5-10); Arterial Blood Gas Hematocrit 29.5 % (42-52); Base Excess ABG 7.7 mmol/L (-2.0-2.0); Blood Gas Allen Test Pos; Blood Gas Operator Identificat CAK; Blood Gas Sample Site Radial, right; Blood Gas Sample Type Arterial; Carboxyhemoglobin 2.5 %THgb (0.4-20.1); HCO3 ABG 33.2 mmol/L (22-26); HGB O2 Sat 72.9 % (95-100); Ionized Calcium Level - ABG 1.2 mmol/L (1.1-1.4); Oxygen Device NC; Oxygen Saturation ABG 75.6; PO2 ABG 40.8 mmHg (80.0-100.0); Potassium Level - ABG 5.5 mmol/L (3.5-5.0); Total Hemoglobin 9.6 g/dL (14-18)
--- NOTE | 2022-03-14 17:04 | CTR_ITS ---
PROCEDURE INFORMATION: Exam: CTA Chest With Contrast Exam date and time: 03/14/2022 5:29 PM Age: 41 years old Clinical indication: Shortness of breath; Additional info: Hypoxia/lethargy TECHNIQUE: Imaging protocol: Computed tomographic angiography of the chest with contrast. 3D rendering (Not supervised by radiologist): MIP and/or 3D reconstructed images were created by the technologist. Radiation optimization: All CT scans at this facility use at least one of these dose optimization techniques: automated exposure control; mA and/or kV adjustment per patient size (includes targeted exams where dose is matched to clinical indication); or iterative reconstruction. Contrast material: OMNIPAQUE 350; Contrast volume: 100 ml; Contrast route: INTRAVENOUS (IV); COMPARISON: CT angio chest w abd pel w con 08/11/2021 10:58 AM RADIATION DOSE METRICS: Total DLP (mGy-cm): 376.71 FINDINGS: Pulmonary arteries: Normal. No pulmonary emboli. Aorta: Unremarkable. No aortic aneurysm. No aortic dissection. Lungs: Right lower lobe parenchymal density in the posteromedial aspect. These findings suggest pneumonia. These findings were not present on prior examination. There was a right lower lobe effusion present which has now resolved.. No masses. Scattered interstitial densities seen right upper lobe. Prior exam showed multiple interstitial densities in the right lung which have now resolved Pleural spaces: Unremarkable. No pneumothorax. No pleural effusion. Heart: There is heavy coronary artery calcifications. Negative for right heart strain No cardiomegaly. No pericardial effusion. Lymph nodes: A few mediastinal lymph nodes are seen these were present on prior examination and appears similar. Bones/joints: Unremarkable. No acute fracture. Soft tissues: Diffuse abdominal peritoneal ascites CT/CT angio chest PE protcl [id number] IMPRESSION: 1. Negative for pulmonary embolism. 2. Heavy coronary artery calcifications. 3. Negative for right heart strain 4. Right lower lobe pneumonia. 5. Diffuse abdominal ascites
[2022-03-14] MEDS: hyDRALAzine 20 mg/mL INJ 1 mL IVP (17:07)
--- NOTE | 2022-03-14 17:22 | PM.HP ---
Providers/Chief Complaint Primary Care Provider: Mal Peres DO Chief Complaint: chest pain History of Present Illness Mal Gibbs is a 41 year old male Medications/Allergies Home Medications Medication Instructions Recorded Confirmed Last Taken Type carvedilol 25 mg tablet 25 mg PO BID 30 days #60 tabs 07/25/21 03/14/22 03/05/22 Rx umeclidinium 62.5 mcg/actuation 1 inh inhalation DAILY #30 ea 08/06/21 03/14/22 03/05/22 Rx blister powder for inhalation (Incruse Ellipta) isosorbide mononitrate 60 mg 60 mg PO DAILY 08/12/21 03/14/22 03/05/22 History tablet,extended release 24 hr ferric citrate 210 mg iron tablet 420 mg PO TID 11/03/21 03/14/22 03/05/22 History (Auryxia) lactulose 20 gram/30 mL oral 10 g PO TID PRN Constipation 11/03/21 03/14/22 03/05/22 History solution lisinopril 40 mg tablet 40 mg PO DAILY 11/03/21 03/14/22 03/05/22 History minoxidil 2.5 mg tablet 2.5 mg PO BID 11/22/21 03/14/22 03/05/22 History nitroglycerin 0.4 mg sublingual 0.4 mg sublingual Q5M PRN Chest 12/02/21 03/14/22 02/04/22 Rx tablet Pain #30 tabs clopidogrel 75 mg tablet 75 mg PO DAILY #90 tabs 01/28/22 03/14/22 03/05/22 Rx cyclobenzaprine 10 mg tablet 10 mg PO Q12H PRN muscle spasm #30 02/04/22 03/14/22 03/05/22 Rx tabs rifaximin 550 mg tablet (Xifaxan) 550 mg PO BID #60 tabs 02/04/22 03/14/22 03/05/22 Rx albuterol sulfate 90 mcg/actuation 2 puff inhalation Q6H PRN 02/21/22 03/14/22 03/05/22 History aerosol inhaler Shortness Of Breath Or Wheezing amlodipine 10 mg tablet 10 mg PO BEDTIME 02/21/22 03/14/22 03/05/22 History aspirin 81 mg tablet,delayed 81 mg PO DAILY 02/21/22 03/14/22 03/05/22 History release clonazepam 0.5 mg tablet 0.5 mg PO BEDTIME 02/21/22 03/14/22 03/05/22 History clonidine HCl 0.2 mg tablet 0.2 mg PO TID 02/21/22 03/14/22 03/05/22 History hydralazine 50 mg tablet 50 mg PO TID 02/21/22 03/14/22 03/05/22 History pantoprazole 40 mg tablet,delayed 40 mg PO DAILY 02/21/22 03/14/22 03/05/22 History release quetiapine 25 mg tablet 25 mg PO DAILY 02/21/22 03/14/22 03/05/22 History DME - BIPAP #1 ea 02/25/22 03/14/22 Unknown Rx DME - Oxygen #1 ea 02/25/22 03/14/22 Unknown Rx vit B,C-folic ac 800 mcg-zinc 12.5 1 tab PO QPM 03/14/22 03/14/22 Unknown History mg-selen-D3 2,000 unit-vit E tablet (RenaPlex-D) Allergies Allergy/AdvReac Type Severity Reaction Status Date / Time nifedipine Allergy ALGY-Swell Verified 03/14/22 14:40 Lip/Tongue/Throat PFSH Acute PFSH: Medical History (Updated 03/04/22 @ 09:05 by Pato Rivera DO) (HFpEF) heart failure with preserved ejection fraction Abdominal ascites Abdominal distention Abnormality of rib determined by X-ray Acute and chronic respiratory failure with hypoxia Acute diastolic CHF (congestive heart failure) Anasarca Anemia Anxiety with depression Arteriovenous fistula for hemodialysis in place, secondary Ascites Atherosclerosis of coronary artery Chronic abdominal pain Chronic respiratory failure Congestive heart failure COPD (chronic obstructive pulmonary disease) COPD (chronic obstructive pulmonary disease) COVID 05/25 Current smoker Degenerative disc disease, lumbar End-stage renal disease needing dialysis End-stage renal disease on hemodialysis ESRD on dialysis ESRD on dialysis Generalized anxiety disorder with panic attacks GERD without esophagitis Gross hematuria Hemoptysis Hepatomegaly Hyperkalemia Hypertension Hypertensive emergency Ileus PHT (pulmonary hypertension) Pneumonia Pulmonary embolism 09/21 Inconclusive for very tiny peripheral LEFT lower lobe pulmonary artery sub segmental emboli versus poor opacification. Right heart failure with reduced right ventricular function Smoking addiction Transaminitis Urethral stricture Surgical History H/O hand surgery Amputation right 2&3 fingers 2017 History of adenoidectomy Stented coronary artery Family History Father No problems noted. Other Hypertension Social History Smoking and tobacco status: current every day smoker cigarettes Packs smoked per day: 1.5 Years cigarettes smoked: 21 [ Other cigarette details: started age 20, currently 0.5ppd ] Alcohol intake: never Marital status: Number of children: 3 Current occupational status: disabled History of recent travel: No Vitals/I&O/Wt Last Vital Signs Temp 98.2 F 03/14/22 13:58 Pulse 78 03/14/22 16:57 Resp 22 H 03/14/22 15:51 BP 190/119 03/14/22 15:51 Pulse Ox 94 03/14/22 16:57 O2 Del Method 03/14/22 15:51 O2 Flow Rate 5 03/14/22 15:51 FiO2 40 03/14/22 16:57 Weight last 48 hrs Weight 81.647 kg Data : 03/14/22 Unknown 03/14/22 14:00 Micro: Microbiology 03/14/22 15:25 Blood Culture - Preliminary Blood SPECIMEN COLLECTED 03/14/22 15:19 Blood Culture - Preliminary Blood SPECIMEN COLLECTED Coding Level of Care Code 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
[2022-03-14] MEDS: iohexol 350 mg/mL 500 mL Btl (per mL) IV (17:40)
--- NOTE | 2022-03-14 18:14 | P.HP_ITS ---
Providers/Chief Complaint Primary Care Provider: Mal Peres DO Chief Complaint: chest pain History of Present Illness Mal gloria, who carries history of end-stage renal disease, noncompliance, oxygen dependent COPD, uses BiPAP at home as well presenting for shortness of breath. Patient is stating that he has not missed any dialysis sessions however according to the ER report he did miss 1 dialysis session. [place] is stating that he has been experiencing nausea, vomiting as well. He is very lethargic and fatigued. He decided to come to the hospital for worsening of his symptoms. He has been experiencing shortness of breath for last couple weeks. In the ER he received antibiotics, CT scan does show right lower lobe pneumonia Patient is not septic, he is hypertensive Will need ICU he is currently on BiPAP, adding Cardene drip Review of Systems Const: Reports: chills Eyes: Denies: change in vision ENMT: Denies: throat pain Card: Reports: swelling of feet/ankles, dyspnea on exertion and orthopnea Resp: Reports: dyspnea and productive cough GI: Reports: nausea and vomiting; Denies: abdominal pain : Denies: flank pain Musc: Denies: neck pain Skin/Breast: Denies: rash Neuro: Reports: headache(s) Psych: Denies: anxiety or sleeping less Endo: Denies: polyuria [place]/Lymph: Denies: easy bruising All/Imm: Denies: urticaria Medications/Allergies Home Medications Medication Instructions Recorded Confirmed Last Taken Type carvedilol 25 mg tablet 25 mg PO BID 30 days #60 tabs 07/25/21 03/14/22 03/05/22 Rx umeclidinium 62.5 mcg/actuation 1 inh inhalation DAILY #30 ea 08/06/21 03/14/22 03/05/22 Rx blister powder for inhalation (Incruse Ellipta) isosorbide mononitrate 60 mg 60 mg PO DAILY 08/12/21 03/14/22 03/05/22 History tablet,extended release 24 hr ferric citrate 210 mg iron tablet 420 mg PO TID 11/03/21 03/14/22 03/05/22 History (Auryxia) lactulose 20 gram/30 mL oral 10 g PO TID PRN Constipation 11/03/21 03/14/22 03/05/22 History solution lisinopril 40 mg tablet 40 mg PO DAILY 11/03/21 03/14/22 03/05/22 History minoxidil 2.5 mg tablet 2.5 mg PO BID 11/22/21 03/14/22 03/05/22 History nitroglycerin 0.4 mg sublingual 0.4 mg sublingual Q5M PRN Chest 12/02/21 03/14/22 02/04/22 Rx tablet Pain #30 tabs clopidogrel 75 mg tablet 75 mg PO DAILY #90 tabs 01/28/22 03/14/22 03/05/22 Rx cyclobenzaprine 10 mg tablet 10 mg PO Q12H PRN muscle spasm #30 02/04/22 03/14/22 03/05/22 Rx tabs rifaximin 550 mg tablet (Xifaxan) 550 mg PO BID #60 tabs 02/04/22 03/14/22 03/05/22 Rx albuterol sulfate 90 mcg/actuation 2 puff inhalation Q6H PRN 02/21/22 03/14/22 03/05/22 History aerosol inhaler Shortness Of Breath Or Wheezing amlodipine 10 mg tablet 10 mg PO BEDTIME 02/21/22 03/14/22 03/05/22 History aspirin 81 mg tablet,delayed 81 mg PO DAILY 02/21/22 03/14/22 03/05/22 History release clonazepam 0.5 mg tablet 0.5 mg PO BEDTIME 02/21/22 03/14/22 03/05/22 History clonidine HCl 0.2 mg tablet 0.2 mg PO TID 02/21/22 03/14/22 03/05/22 History hydralazine 50 mg tablet 50 mg PO TID 02/21/22 03/14/22 03/05/22 History pantoprazole 40 mg tablet,delayed 40 mg PO DAILY 02/21/22 03/14/22 03/05/22 History release quetiapine 25 mg tablet 25 mg PO DAILY 02/21/22 03/14/22 03/05/22 History DME - BIPAP #1 ea 02/25/22 03/14/22 Unknown Rx DME - Oxygen #1 ea 02/25/22 03/14/22 Unknown Rx vit B,C-folic ac 800 mcg-zinc 12.5 1 tab PO QPM 03/14/22 03/14/22 Unknown History mg-selen-D3 2,000 unit-vit E tablet (RenaPlex-D) Allergies Allergy/AdvReac Type Severity Reaction Status Date / Time nifedipine Allergy LIZ-Swell Verified 03/14/22 14:40 Lip/Tongue/Throat PFSH Acute PFSH: Medical History (HFpEF) heart failure with preserved ejection fraction Abdominal ascites Abdominal distention Abnormality of rib determined by X-ray Acute and chronic respiratory failure with hypoxia Acute diastolic CHF (congestive heart failure) Anasarca Anemia Anxiety with depression Arteriovenous fistula for hemodialysis in place, secondary Ascites Atherosclerosis of coronary artery Chronic abdominal pain Chronic respiratory failure Congestive heart failure COPD (chronic obstructive pulmonary disease) COPD (chronic obstructive pulmonary disease) COVID 05/25 Current smoker Degenerative disc disease, lumbar End-stage renal disease needing dialysis End-stage renal disease on hemodialysis ESRD on dialysis ESRD on dialysis Generalized anxiety disorder with panic attacks GERD without esophagitis Gross hematuria Hemoptysis Hepatomegaly Hyperkalemia Hypertension Hypertensive emergency Ileus PHT (pulmonary hypertension) Pneumonia Pulmonary embolism 09/21 Inconclusive for very tiny peripheral LEFT lower lobe pulmonary artery sub segmental emboli versus poor opacification. Right heart failure with reduced right ventricular function Smoking addiction Transaminitis Urethral stricture Surgical History H/O hand surgery Amputation right 2&3 fingers 2017 History of adenoidectomy Stented coronary artery Family History Father No problems noted. Other Hypertension Social History Smoking and tobacco status: current every day smoker cigarettes Packs smoked per day: 1.5 Years cigarettes smoked: 21 [ Other cigarette details: started age 20, currently 0.5ppd ] Alcohol intake: never Marital status: Number of children: 3 Current occupational status: disabled History of recent travel: No Vitals/I&O/Wt Last Vital Signs Temp 98.2 F 03/14/22 13:58 Pulse 78 03/14/22 16:57 Resp 22 H 03/14/22 15:51 BP 190/119 03/14/22 15:51 Pulse Ox 94 03/14/22 16:57 O2 Del Method 03/14/22 15:51 O2 Flow Rate 5 03/14/22 15:51 FiO2 40 03/14/22 16:57 Weight last 48 hrs Weight 81.647 kg Physical Exam Narrative: Patient is hunched over, however arousable to verbal stimuli Currently on BiPAP Bilateral breath sound with rhonchi Venous stasis dermatitis Edema of legs positive Abdomen soft, umbilical hernia Abdomen is nontender Patient looks dehydrated, malnourished unkept appearance Able to follow commands I do not appreciate active focal deficits Data : 03/14/22 Unknown 03/14/22 14:00 Micro: Microbiology 03/14/22 15:25 Blood Culture - Preliminary Blood SPECIMEN COLLECTED 03/14/22 15:19 Blood Culture - Preliminary Blood SPECIMEN COLLECTED A&P Assessment and plan (1) Abdominal ascites: (2) Generalized anxiety disorder with panic attacks: (3) Chronic respiratory failure: (4) End stage renal disease: (5) ESRD on dialysis: (6) COPD (chronic obstructive pulmonary disease): (7) Community acquired pneumonia: (8) Hypertensive emergency: Plan Acute on chronic hypoxia Increased work of breathing Currently on BiPAP Patient uses 3 L of oxygen at home and does use BiPAP at home as well Right-sided pneumonia evident Will give him broad-spectrum antibiotics, renally dose DuoNeb Continue BiPAP Add low-dose steroids End-stage renal disease Thursday dialysis sessions Consulted nephro Unsure whether he has completed his dialysis sessions Hyperkalemia noted Hypertensive emergency Start Cardene drip Continue home tablets of regimen as well Preserved ejection fraction heart failure no acute exacerbation He is prone to develop pulm edema related to fluid overload due to end-stage renal disease as well Ascites multiple paracentesis in the past Unkept appearance Patient is full code Renal diet Attestations Medical Necessity Statement*: Continue medical management requiring more than 2 midnight Time Spent in Patient Care: 40 Coding Level of Care Code 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
[2022-03-14 18:28] LABS: ABG PCO2 47.1 mmHg (35-45); ABG PH Result 7.44 (7.35-7.45); Arterial Blood Gas Hematocrit 30.4 % (42-52); Base Excess ABG 6.5 mmol/L (-2.0-2.0); Blood Gas Allen Test Pos; Blood Gas Operator Identificat AMH; Blood Gas Sample Site Radial, right; Blood Gas Sample Type Arterial; Carboxyhemoglobin 2.5 %THgb (0.4-20.1); HCO3 ABG 31.6 mmol/L (22-26); HGB O2 Sat 94.3 % (95-100); Ionized Calcium Level - ABG 1.2 mmol/L (1.1-1.4); Methemoglobin 0.9 % (0.4-1.5); Oxygen Device BIPAP; Oxygen Saturation ABG 97.6; PO2 ABG 83.2 mmHg (80.0-100.0); Potassium Level - ABG 5.2 mmol/L (3.5-5.0); Total Hemoglobin 9.9 g/dL (14-18)
[2022-03-14] MEDS: piperacillin-tazobactam 3.375 GM in sodium chloride 0.9% (plus) 50 ML IV (18:38)
[2022-03-14 19:01] LABS: Procalcitonin 0.32 ng/mL (0-0.5)
[2022-03-14 19:41] LABS: Ammonia 23 umol/L (16-60)
--- NOTE | 2022-03-14 20:12 | PC.NURSE ---
REC'D SHIFT CHANGE REPORT FROM JAGUAR KEARNEY ON THIS PT. PT MASOODY ON BIPAP MACHINE, ASLEEP. HIS BIPAP IS AT 35% O2 WITH A RATE OF 18-19. PT WAS SOB AT DIALYSIS TODAY AND WAS SENT OVER HERE PER CAIO. ZOSYN IV ANTIBX IS CURRENTLY RUNNING IN PT'S RIGHT FA AND ONCE COMPLETE - LEVAQUIN WILL BE STARTED.
[2022-03-14] MEDS: levofloxacin-dextrose 5 % 750 MG/150 ML PREMIX 100 MG IV (20:14)
[2022-03-14] MEDS: cloNIDine 0.1 mg Tablet 0.2 MG PO (22:02)
[2022-03-14] MEDS: hyDRALAzine 50 mg Tablet PO (22:02)
[2022-03-14] MEDS: morphine IR 15 mg Tablet PO (22:03)
[2022-03-14] MEDS: CLONazepam 0.5 mg Tablet PO (22:03)
[2022-03-14] MEDS: heparin 5,000 unit/mL INJ 1 mL 5000 UNIT SUBCUT (22:04)
[2022-03-14] MEDS: amlodipine 10 mg Tablet PO (22:04)
[2022-03-14] MEDS: nitroglycerin drip 50 MG/250 ML PREMIX IV (22:11)
[2022-03-15] VITALS (106 sets, daily range): BP systolic 139–185; BP diastolic 79–129; PULSE 64–93; RESP 1–23; TEMP 36.3–37.4; O2SAT 89–98
[2022-03-15 03:33] LABS: Basophils % 0.9 %; Eosinophils # 0.3 10^3/uL (0.0-0.8); Eosinophils % 7.4 %; Hematocrit 27.4 % (42.0-52.0); Hemoglobin 8.4 g/dL (11.7-16.6); Lymphocytes # 0.5 10^3/uL (0.8-4.8); Lymphocytes % 11.5 %; Mean Corpuscular HGB Conc 30.7 g/dL (30.0-36.0); Mean Corpuscular Hemoglobin 26.6 pg (28.0-34.0); Mean Corpuscular Volume 86.7 fl (80-94); Mean Platelet Volume 9.3 fL (7.4-10.4); Monocytes # 0.4 10^3/uL (0.2-0.9); Monocytes % 7.6 %; Neutrophils # 3.32 10^3/uL (1.8-7.7); Neutrophils % 72.4 %; Nucleated Red Blood Cells % 0 %; Platelet Count 163 10^3/cmm (130-400); Red Blood Count 3.16 10^6/uL (4.1-5.3); Red Cell Distribution Width 19.1 % (12.1-15.1); White Blood Count 4.6 10^3/uL (4.0-10.0)
[2022-03-15 04:04] LABS: Anion Gap 17.1 (5-19); Blood Urea Nitrogen 37 mg/dL (6-20); C Reactive Protein 61.5 mg/L (0.0-4.9); Calcium 9.4 mg/dL (8.5-10.5); Carbon Dioxide 30 mmol/L (22-29); Chloride 88 mmol/L (98-107); Glomerular Filtration Rate 8.1 mL/min (90-130); Glucose 50 mg/dL (65-115); Magnesium 1.7 mg/dL (1.7-2.3); Osmolality Calculated 274 mOsm/kg (285-295); Potassium 6.1 mmol/L (3.5-5.1); Sodium 129 mmol/L (136-145)
[2022-03-15 05:56] LABS: ABG PCO2 52.1 mmHg (35-45); ABG PH Result 7.39 (7.35-7.45); Arterial Blood Gas Hematocrit 32.8 % (42-52); Base Excess ABG 5.2 mmol/L (-2.0-2.0); Blood Gas Allen Test Pos; Blood Gas Sample Type Arterial; HCO3 ABG 31.2 mmol/L (22-26); PO2 ABG 67.2 mmHg (80.0-100.0)
[2022-03-15 05:58] LABS: Blood Gas Operator Identificat JB; Blood Gas Sample Site Radial, right; Oxygen Device BIPAP
[2022-03-15 06:07] LABS: Glucose Point of Care 53 mg/dL (70-110)
--- NOTE | 2022-03-15 06:15 | PC.NURSE ---
Addendum entered by Maggie Bingham RN 03/15/22 06:17: Notified Dr. Aponte. Original Note: Blood glucose noted to be 50 on AM labs. Juice and milk given. Patient alert and awake and answers all questions. Will recheck blood sugar.
--- NOTE | 2022-03-15 06:40 | PC.NURSE ---
Blood glucose 81, resting comfortably.
[2022-03-15 06:41] LABS: Glucose Point of Care 81 mg/dL (70-110)
--- NOTE | 2022-03-15 06:55 | PC.NURSE ---
Report given to JAGUAR Eddy.
[2022-03-15] MEDS: ipratropium-albuterol 3 mL Neb INHALATION (08:17)
[2022-03-15] MEDS: quetiapine 25 mg Tablet PO (08:23)
[2022-03-15] MEDS: cloNIDine 0.1 mg Tablet 0.2 MG PO ×3 (08:23→20:48)
[2022-03-15] MEDS: carvedilol 25 mg Tablet PO ×2 (08:23→17:28)
[2022-03-15] MEDS: aspirin 81 mg EC Tablet PO (08:23)
[2022-03-15] MEDS: pantoprazole DR 40 mg Tablet PO (08:23)
[2022-03-15] MEDS: sennosides-docusate Tablet 1 TAB PO (08:24)
[2022-03-15] MEDS: cefepime 1,000 MG in sodium chloride 0.9% (plus) 50 ML 100 MG IV (08:24)
[2022-03-15] MEDS: piperacillin-tazobactam 3.375 GM in sodium chloride 0.9% (plus) 50 ML IV ×2 (08:32→20:49)
[2022-03-15 08:53] LABS: Glucose Point of Care 96 mg/dL (70-110)
[2022-03-15] MEDS: isosorbide mononitrate ER 60 mg Tablet PO (09:37)
[2022-03-15] MEDS: hyDRALAzine 50 mg Tablet PO ×3 (09:38→20:49)
[2022-03-15] MEDS: minoxidil 10 mg Tablet 2.5 MG PO ×2 (09:38→17:28)
[2022-03-15] MEDS: lisinopril 20 mg Tablet 40 MG PO (09:38)
[2022-03-15] MEDS: heparin 5,000 unit/mL INJ 1 mL 5000 UNIT SUBCUT ×2 (10:04→20:49)
[2022-03-15] MEDS: nitroglycerin drip 50 MG/250 ML PREMIX 19.5 MG IV (11:54)
--- NOTE | 2022-03-15 13:15 | PM.PN ---
Subjective Subjective: pt seen this am he is on bipap visited last night appears comfortable on bipap at this time Vitals/I&O/Wt Last Vital Signs Temp 98.1 F 03/15/22 12:45 Pulse 64 03/15/22 12:45 Resp 18 03/15/22 12:45 BP 139/80 03/15/22 12:45 Pulse Ox 95 03/15/22 12:45 O2 Del Method 03/15/22 12:45 O2 Flow Rate 5 03/14/22 15:51 FiO2 35 03/15/22 12:45 03/14/22 03/15/22 03/15/22 22:59 06:59 14:59 Intake Total 52.225 / 52.225 159.50 / 211.725 237.825 / 237.825 Output Total 0 / 0 0 / 0 0 / 0 Balance 52.225 / 52.225 159.50 / 211.725 237.825 / 237.825 Weight last 48 hrs Weight 80.104 kg Weight 81.647 kg Physical Exam Narrative: Patient laying in bed on bipap, Currently on BiPAP Bilateral breath sound with rhonchi Venous stasis dermatitis Edema of legs positive Abdomen soft, umbilical hernia Abdomen is nontender malnourished unkept appearance Able to follow commands Data : 03/15/22 02:48 03/15/22 02:48 Micro: Microbiology 03/14/22 15:25 Blood Culture - Preliminary Blood SPECIMEN COLLECTED 03/14/22 15:19 Blood Culture - Preliminary Blood SPECIMEN COLLECTED A&P Assessment and plan (1) Abdominal ascites: (2) Generalized anxiety disorder with panic attacks: (3) Chronic respiratory failure: (4) End stage renal disease: (5) ESRD on dialysis: (6) COPD (chronic obstructive pulmonary disease): (7) Community acquired pneumonia: (8) Hypertensive emergency: Plan Acute on chronic hypoxia Increased work of breathing Currently on BiPAP Patient uses 3 L of oxygen at home and does use BiPAP at home as well Right-sided pneumonia evident Will give him broad-spectrum antibiotics, renally dose DuoNeb Continue BiPAP continue low-dose steroids Continue nitro drip for now and try to wean off dialysis session again today. Chest pain at admission. Will check troponins End-stage renal disease Thursday dialysis sessions Consulted nephro Unsure whether he has completed his dialysis sessions Hyperkalemia noted Hypertensive emergency Continue home tablets of regimen as well Preserved ejection fraction heart failure no acute exacerbation He is prone to develop pulm edema related to fluid overload due to end-stage renal disease as well Ascites multiple paracentesis in the past Unkept appearance Patient is full code Renal diet Attestations Medical Necessity Statement*: Continue medical management requiring more than 2 midnight Time Spent in Patient Care: 40 Coding Level of Care Code 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
[2022-03-15 14:13] LABS: Troponin(5th) Baseline 76 ng/L (0-15)
[2022-03-15 16:04] LABS: Troponin 5 2HR 79.98 ng/L (0-15)
[2022-03-15 16:05] LABS: Troponin 5 2HR Delta 3.98 ABS# (0-10)
--- NOTE | 2022-03-15 18:11 | PM.CONSULT ---
Providers/Reason For Consult Consulting Physician/Specialty*: ER Reason for Consult*: ESRD Requesting Physician: ER Attending Physician: Brigitte Amin MD Primary Care Provider: Mal Peres DO History of Present Illness History of Present Illness Mal Gibbs is a 41 year old male with past medical history of end-stage renal disease on hemodialysis per Thursday schedule as outpatient, COPD, hypertension presented to the emergency department complaining of worsening shortness of breath. Patient reports that he did not miss any dialysis. Noted to have hyperkalemia and hypertensive urgency he is currently on nitro drip. Patient denies any other complaints currently. Review of Systems Const: Reports: chills Eyes: Denies: change in vision ENMT: Denies: throat pain Card: Reports: swelling of feet/ankles, dyspnea on exertion and orthopnea Resp: Reports: dyspnea and productive cough GI: Reports: nausea and vomiting; Denies: abdominal pain : Denies: flank pain Musc: Denies: neck pain Skin/Breast: Denies: rash Neuro: Reports: headache(s) Psych: Denies: anxiety or sleeping less Endo: Denies: polyuria [place]/Lymph: Denies: easy bruising All/Imm: Denies: urticaria Medications/Allergies Home Medications Medication Instructions Recorded Confirmed Last Taken Type carvedilol 25 mg tablet 25 mg PO BID 30 days #60 tabs 07/25/21 03/14/22 03/05/22 Rx umeclidinium 62.5 mcg/actuation 1 inh inhalation DAILY #30 ea 08/06/21 03/14/22 03/05/22 Rx blister powder for inhalation (Incruse Ellipta) isosorbide mononitrate 60 mg 60 mg PO DAILY 08/12/21 03/14/22 03/05/22 History tablet,extended release 24 hr ferric citrate 210 mg iron tablet 420 mg PO TID 11/03/21 03/14/22 03/05/22 History (Auryxia) lactulose 20 gram/30 mL oral 10 g PO TID PRN Constipation 11/03/21 03/14/22 03/05/22 History solution lisinopril 40 mg tablet 40 mg PO DAILY 11/03/21 03/14/22 03/05/22 History minoxidil 2.5 mg tablet 2.5 mg PO BID 11/22/21 03/14/22 03/05/22 History nitroglycerin 0.4 mg sublingual 0.4 mg sublingual Q5M PRN Chest 12/02/21 03/14/22 02/04/22 Rx tablet Pain #30 tabs clopidogrel 75 mg tablet 75 mg PO DAILY #90 tabs 01/28/22 03/14/22 03/05/22 Rx cyclobenzaprine 10 mg tablet 10 mg PO Q12H PRN muscle spasm #30 02/04/22 03/14/22 03/05/22 Rx tabs rifaximin 550 mg tablet (Xifaxan) 550 mg PO BID #60 tabs 02/04/22 03/14/22 03/05/22 Rx albuterol sulfate 90 mcg/actuation 2 puff inhalation Q6H PRN 02/21/22 03/14/22 03/05/22 History aerosol inhaler Shortness Of Breath Or Wheezing amlodipine 10 mg tablet 10 mg PO BEDTIME 02/21/22 03/14/22 03/05/22 History aspirin 81 mg tablet,delayed 81 mg PO DAILY 02/21/22 03/14/22 03/05/22 History release clonazepam 0.5 mg tablet 0.5 mg PO BEDTIME 02/21/22 03/14/22 03/05/22 History clonidine HCl 0.2 mg tablet 0.2 mg PO TID 02/21/22 03/14/22 03/05/22 History hydralazine 50 mg tablet 50 mg PO TID 02/21/22 03/14/22 03/05/22 History pantoprazole 40 mg tablet,delayed 40 mg PO DAILY 02/21/22 03/14/22 03/05/22 History release quetiapine 25 mg tablet 25 mg PO DAILY 02/21/22 03/14/22 03/05/22 History DME - BIPAP #1 ea 02/25/22 03/14/22 Unknown Rx DME - Oxygen #1 ea 02/25/22 03/14/22 Unknown Rx vit B,C-folic ac 800 mcg-zinc 12.5 1 tab PO QPM 03/14/22 03/14/22 Unknown History mg-selen-D3 2,000 unit-vit E tablet (RenaPlex-D) Allergies Allergy/AdvReac Type Severity Reaction Status Date / Time nifedipine Allergy Seth Verified 03/14/22 14:40 Lip/Tongue/Throat Current Medications Generic Name Dose Route Start Last Admin Trade Name Freq PRN Reason Stop Dose Admin Albuterol/Ipratropium 3 ml 03/14/22 21:31 03/15/22 08:17 Ipratropium-Albuterol 3 Ml Neb INHALATION 3 ml Q6H PRN Administration SHORTNESS OF BREATH Amlodipine Besylate 10 mg 03/14/22 21:31 03/14/22 22:04 Amlodipine 10 Mg Tablet PO 10 mg BEDTIME ARTME Administration Aspirin 81 mg 03/15/22 09:00 03/15/22 08:23 Aspirin 81 Mg Ec Tablet PO 81 mg DAILY ARTEM Administration Carvedilol 25 mg 03/15/22 09:00 03/15/22 17:28 Carvedilol 25 Mg Tablet PO 25 mg BID ARTEM Administration Clonazepam 0.5 mg 03/14/22 21:31 03/14/22 22:03 Clonazepam 0.5 Mg Tablet PO 0.5 mg BEDTIME ARTEM Administration Clonidine HCl 0.2 mg 03/14/22 21:31 03/15/22 14:43 Clonidine 0.1 Mg Tablet PO 0.2 mg TID ARTEM Administration Heparin Sodium (Porcine) 5,000 unit 03/14/22 21:31 03/15/22 10:04 Heparin 5,000 Unit/Ml Inj 1 Ml SUBCUT 5,000 unit Q12H ARTEM Administration Hydralazine HCl 50 mg 03/14/22 21:31 03/15/22 14:43 Hydralazine 50 Mg Tablet PO 50 mg TID ARTEM Administration Piperacillin Sod/Tazobactam 50 mls @ 12.5 mls/hr 03/15/22 09:00 03/15/22 17:30 Sod 3.375 gm/ Sodium Chloride IV Infused Q12H ARTEM Infusion Protocol As Directed Cefepime HCl 1,000 mg/ Sodium 50 mls @ 100 mls/hr 03/15/22 09:00 03/15/22 12:02 Chloride IV Infused DAILY ARTEM Infusion Protocol Nitroglycerin/Dextrose 50 mg in 250 mls @ 0 mls/hr 03/14/22 21:31 03/15/22 17:30 Nitroglycerin Drip IV 60 mcg/min .Q0M ARTEM 18 mls/hr Titration Protocol Per Protocol Isosorbide Mononitrate 60 mg 03/15/22 09:00 03/15/22 09:37 Isosorbide Mononitrate Er 60 Mg Tablet PO 60 mg DAILY ARTEM Administration Lisinopril 40 mg 03/15/22 09:00 03/15/22 09:38 Lisinopril 20 Mg Tablet PO 40 mg DAILY ARTEM Administration Minoxidil 2.5 mg 03/15/22 09:00 03/15/22 17:28 Minoxidil 10 Mg Tablet PO 2.5 mg BID ARTEM Administration Morphine Sulfate 15 mg 03/14/22 21:31 03/14/22 22:03 Morphine Ir 15 Mg Tablet PO 15 mg Q6H PRN Administration pAIN Non-Formulary Medication 420 mg 03/14/22 21:31 03/15/22 14:44 Ferric Citrate [Auryxia] PO Not Given TID [facility] Pantoprazole Sodium 40 mg 03/15/22 09:00 03/15/22 08:[address] 40 Mg Tablet PO 40 mg DAILY ARTEM Administration Quetiapine Fumarate 25 mg 03/15/22 09:00 03/15/22 08:23 Quetiapine 25 Mg Tablet PO 25 mg DAILY ARTEM Administration Senna/Docusate Sodium 1 tab 03/15/22 09:00 03/15/22 08:24 Sennosides-Docusate Tablet PO 1 tab DAILY ARTEM Administration PFSH Acute PFSH: Medical History (HFpEF) heart failure with preserved ejection fraction Abdominal ascites Abdominal distention Abnormality of rib determined by X-ray Acute and chronic respiratory failure with hypoxia Acute diastolic CHF (congestive heart failure) Anasarca Anemia Anxiety with depression Arteriovenous fistula for hemodialysis in place, secondary Ascites Atherosclerosis of coronary artery Chronic abdominal pain Chronic respiratory failure Congestive heart failure COPD (chronic obstructive pulmonary disease) COPD (chronic obstructive pulmonary disease) COVID 05/25 Current smoker Degenerative disc disease, lumbar End-stage renal disease needing dialysis End-stage renal disease on hemodialysis ESRD on dialysis ESRD on dialysis Generalized anxiety disorder with panic attacks GERD without esophagitis Gross hematuria Hemoptysis Hepatomegaly Hyperkalemia Hypertension Hypertensive emergency Ileus PHT (pulmonary hypertension) Pneumonia Pulmonary embolism 09/21 Inconclusive for very tiny peripheral LEFT lower lobe pulmonary artery sub segmental emboli versus poor opacification. Right heart failure with reduced right ventricular function Smoking addiction Transaminitis Urethral stricture Surgical History H/O hand surgery Amputation right 2&3 fingers 2017 History of adenoidectomy Stented coronary artery Family History Father No problems noted. Other Hypertension Social History Smoking and tobacco status: current every day smoker cigarettes Packs smoked per day: 1.5 Years cigarettes smoked: 21 [ Other cigarette details: started age 20, currently 0.5ppd ] Alcohol intake: never Marital status: Number of children: 3 Current occupational status: disabled History of recent travel: No Vitals/I&O/Wt Last Vital Signs Temp 99.3 F 03/15/22 15:45 Pulse 85 03/15/22 17:41 Resp 20 H 03/15/22 17:30 BP 180/102 03/15/22 17:30 Pulse Ox 94 03/15/22 17:41 O2 Del Method 03/15/22 15:45 O2 Flow Rate 5 03/14/22 15:51 FiO2 35 03/15/22 17:41 03/15/22 03/15/22 03/15/22 06:59 14:59 22:59 Intake Total 159.50 / 211.725 237.825 / 237.825 281.475 / 519.300 Output Total 0 / 0 0 / 0 Balance 159.50 / 211.725 237.825 / 237.825 281.475 / 519.300 Weight last 48 hrs Weight 80.104 kg Weight 81.647 kg Physical Exam Narrative: Patient laying in bed on bipap, Bilateral breath sound with rhonchi Venous stasis dermatitis Edema of legs positive Abdomen soft, umbilical hernia Abdomen is nontender malnourished unkept appearance Data : 03/15/22 02:48 03/15/22 02:48 Micro: Microbiology 03/14/22 21:39 MRSA Culture - Final Nose 03/14/22 21:39 Gram Stain - Final Sputum - Expectorated Sputum 03/14/22 15:25 Blood Culture - Preliminary Blood NEGATIVE TO DATE 03/14/22 15:19 Blood Culture - Preliminary Blood NEGATIVE TO DATE A&P Assessment and plan (1) ESRD on dialysis: 1. End-stage renal disease: On HD per MWF schedule, patient now presented with volume overload hypertensive urgency and hyperkalemia. Plan for dialysis today-3 and half hours 2K and 3 to 4 L ultrafiltration 2. Hypertensive urgency: On nitro drip, restart home medications and should improve after ultrafiltration with HD. 3. Hyperkalemia: Plan for hemodialysis today 4. Acute on chronic respiratory failure: On BiPAP currently, due to volume overload and possible COPD Patient evaluated using audiovisual cart. Time spent 35 minutes. Consult Attestations Medical Necessity Statement: Patient requires continued hospital stay for close monitoring and further management Coding Level of Care Code Established Pt Acute Receiving Teller for Chg Fwd Patient Type Established History Problem Focused Exam Problem Focused Medical Decision Making Straight Forward Diagnoses ESRD on dialysis N18.6; Z99.2
--- NOTE | 2022-03-15 18:29 | PC.NURSE ---
SHift SUmmary: Uneventful shift. Patient rested in bed throughout the day on Bipap. Occaisonally off of bipap for PO meds or sips of water, but he only can tolerate about 10 minutes off of bipap before becoming tachypnic and an increased work of breathing. Patient had dialysis today and 3L of fluid removed. Patient can answer orientation questions and follow commands, but is very lethargic.
[2022-03-15 19:55] LABS: Troponin 5 6HR 79.06 ng/L (0-15); Troponin 5 6HR Delta 3.06 ng/L (0-12)
[2022-03-15] MEDS: CLONazepam 0.5 mg Tablet PO (20:49)
[2022-03-15] MEDS: amlodipine 10 mg Tablet PO (20:49)
[2022-03-16] VITALS (103 sets, daily range): BP systolic 127–172; BP diastolic 59–99; PULSE 58–86; RESP 0–33; TEMP 36.4–37.4; O2SAT 91–100
[2022-03-16] MEDS: ondansetron 2 mg/ML SDV 2 mL 4 MG IVP (01:20)
[2022-03-16] MEDS: nitroglycerin drip 50 MG/250 ML PREMIX 15 MG IV (01:35)
[2022-03-16] MEDS: ipratropium-albuterol 3 mL Neb INHALATION (08:34)
[2022-03-16] MEDS: aspirin 81 mg EC Tablet PO (08:54)
[2022-03-16] MEDS: minoxidil 10 mg Tablet 2.5 MG PO ×2 (08:55→17:58)
[2022-03-16] MEDS: pantoprazole DR 40 mg Tablet PO (08:55)
[2022-03-16] MEDS: quetiapine 25 mg Tablet PO (08:55)
[2022-03-16] MEDS: carvedilol 25 mg Tablet PO (08:55)
[2022-03-16] MEDS: sennosides-docusate Tablet 1 TAB PO (08:55)
[2022-03-16] MEDS: cloNIDine 0.1 mg Tablet 0.2 MG PO ×2 (08:55→20:32)
[2022-03-16] MEDS: hyDRALAzine 50 mg Tablet PO ×3 (08:55→20:30)
[2022-03-16] MEDS: lisinopril 20 mg Tablet 40 MG PO (08:55)
[2022-03-16] MEDS: isosorbide mononitrate ER 60 mg Tablet PO (08:55)
[2022-03-16] MEDS: piperacillin-tazobactam 3.375 GM in sodium chloride 0.9% (plus) 50 ML IV ×2 (08:56→20:34)
[2022-03-16] MEDS: heparin 5,000 unit/mL INJ 1 mL 5000 UNIT SUBCUT ×2 (08:56→20:33)
[2022-03-16] MEDS: cefepime 1,000 MG in sodium chloride 0.9% (plus) 50 ML 100 MG IV (08:56)
[2022-03-16 10:19] LABS: Basophils % 1.1 %; Eosinophils # 0.3 10^3/uL (0.0-0.8); Eosinophils % 8.1 %; Hematocrit 27.1 % (42.0-52.0); Hemoglobin 8.2 g/dL (11.7-16.6); Lymphocytes # 0.6 10^3/uL (0.8-4.8); Lymphocytes % 15.3 %; Mean Corpuscular HGB Conc 30.3 g/dL (30.0-36.0); Mean Corpuscular Volume 89.1 fl (80-94); Mean Platelet Volume 9.7 fL (7.4-10.4); Monocytes # 0.3 10^3/uL (0.2-0.9); Monocytes % 8.1 %; Neutrophils # 2.43 10^3/uL (1.8-7.7); Neutrophils % 67.4 %; Nucleated Red Blood Cells % 0 %; Platelet Count 163 10^3/cmm (130-400); Red Blood Count 3.04 10^6/uL (4.1-5.3); Red Cell Distribution Width 18.7 % (12.1-15.1); White Blood Count 3.6 10^3/uL (4.0-10.0)
[2022-03-16 10:34] LABS: Anion Gap 14.5 (5-19); Blood Urea Nitrogen 20 mg/dL (6-20); Calcium 9.2 mg/dL (8.5-10.5); Carbon Dioxide 30 mmol/L (22-29); Chloride 94 mmol/L (98-107); Glomerular Filtration Rate 11.6 mL/min (90-130); Glucose 108 mg/dL (65-115); Osmolality Calculated 281 mOsm/kg (285-295); Potassium 4.5 mmol/L (3.5-5.1); Sodium 134 mmol/L (136-145)
--- NOTE | 2022-03-16 11:22 | PM.PN ---
Subjective Subjective: Seen this morning. No acute events overnight. Patient still feels short of breath without BiPAP on. Blood pressure elevated this a.m. 170 systolic. He had dialysis yesterday and plan for another dialysis session today. Vitals/I&O/Wt Last Vital Signs Temp 98.9 F 03/16/22 08:30 Pulse 73 03/16/22 10:00 Resp 33 H 03/16/22 10:00 BP 141/77 03/16/22 10:00 Pulse Ox 98 03/16/22 10:00 O2 Del Method 03/16/22 08:34 O2 Flow Rate 35 03/16/22 08:37 FiO2 35 03/16/22 08:37 03/15/22 03/16/22 03/16/22 22:59 06:59 14:59 Intake Total 535.000 / 772.825 322.925 / 1095.750 560 / 560 Output Total 0 / 0 0 / 0 Balance 535.000 / 772.825 322.925 / 1095.750 560 / 560 Weight last 48 hrs Weight 78.426 kg Weight 80.104 kg Weight 81.647 kg Physical Exam Narrative: Currently sitting up in recliner having breakfast. On nasal cannula Bilateral breath sound with rhonchi Venous stasis dermatitis Edema of legs positive Abdomen soft, umbilical hernia Abdomen is nontender malnourished unkept appearance Able to follow commands Data : 03/16/22 09:45 03/16/22 09:45 Micro: Microbiology 03/14/22 21:39 Gram Stain - Final Sputum - Expectorated Sputum Sputum Culture - Preliminary 03/14/22 21:39 MRSA Culture - Final Nose 03/14/22 15:25 Blood Culture - Preliminary Blood NEGATIVE TO DATE 03/14/22 15:19 Blood Culture - Preliminary Blood NEGATIVE TO DATE A&P Assessment and plan (1) Abdominal ascites: (2) Generalized anxiety disorder with panic attacks: (3) Chronic respiratory failure: (4) End stage renal disease: (5) ESRD on dialysis: (6) COPD (chronic obstructive pulmonary disease): (7) Community acquired pneumonia: (8) Hypertensive emergency: Plan #Acute on chronic hypoxia #Right sided pneumonia Increased work of breathing Currently on BiPAP Patient uses 3 L of oxygen at home and does use BiPAP at home as well DuoNeb Continue BiPAP continue low-dose steroids Wean off nitro drip. dialysis session again today. Chest pain at admission. No longer having chest pain. Troponins negative. Delta negative. -Continue IV Zosyn for now for pneumonia. #End-stage renal disease Thursday dialysis sessions Consulted nephro Did not complete dialysis session on day of admission. Presented to ER instead. Possibly with a plan to dialyze him today. Continue BiPAP as needed #Hypertensive emergency Continue home tablets of regimen as well #Preserved ejection fraction heart failure no acute exacerbation He is prone to develop pulm edema related to fluid overload due to end-stage renal disease as well Ascites multiple paracentesis in the past Unkept appearance Patient is full code Renal diet Attestations Medical Necessity Statement*: Continue medical management requiring more than 2 midnight Time Spent in Patient Care: 40 Coding Level of Care Code Acute Clinical Applications Specialist for Adriannag Fwd Diagnoses Abdominal ascites R18.8 Generalized anxiety disorder with panic attacks F41.1; F41.0 Chronic respiratory failure J96.10 End stage renal disease N18.6 ESRD on dialysis N18.6; Z99.2 COPD (chronic obstructive pulmonary disease) J44.9 Community acquired pneumonia J18.9 Hypertensive emergency I16.1
--- NOTE | 2022-03-16 12:48 | P.PN_ITS ---
Subjective Subjective: on 3L o2 Vitals/I&O/Wt Last Vital Signs Temp 98.9 F 03/16/22 08:30 Pulse 60 03/16/22 11:49 Resp 33 H 03/16/22 10:00 BP 141/77 03/16/22 10:00 Pulse Ox 99 03/16/22 11:49 O2 Del Method 03/16/22 08:34 O2 Flow Rate 35 03/16/22 11:49 FiO2 35 03/16/22 11:49 03/15/22 03/16/22 03/16/22 22:59 06:59 14:59 Intake Total 535.000 / 772.825 322.925 / 1095.750 560 / 560 Output Total 0 / 0 0 / 0 Balance 535.000 / 772.825 322.925 / 1095.750 560 / 560 Weight last 48 hrs Weight 78.426 kg Weight 80.104 kg Weight 81.647 kg Physical Exam Narrative: Currently sitting upt. On nasal cannula Bilateral breath sound with rhonchi Venous stasis dermatitis Edema of legs positive Abdomen soft, umbilical hernia Abdomen is nontender Data : 03/16/22 09:45 03/16/22 09:45 Micro: Microbiology 03/14/22 21:39 Gram Stain - Final Sputum - Expectorated Sputum Sputum Culture - Preliminary 03/14/22 21:39 MRSA Culture - Final Nose 03/14/22 15:25 Blood Culture - Preliminary Blood NEGATIVE TO DATE 03/14/22 15:19 Blood Culture - Preliminary Blood NEGATIVE TO DATE A&P Assessment and plan (1) ESRD on dialysis: 1.? End-stage renal disease: On HD per MWF schedule, patient presented with volume overload hypertensive urgency and hyperkalemia.?s/p dialysis yesterday -3 and half hours 2K and 3 to 4 L ultrafiltration 2.? Hypertensive urgency: s/p nitro drip, restarted home medications , BP improved 3.? Hyperkalemia: improved 4.? Acute on chronic respiratory failure: On BiPAP currently, due to volume overload and possible COPD Patient evaluated using audiovisual cart.? Time spent 35 minutes. Attestations Medical Necessity Statement*: Continue medical management requiring more than 2 midnight Time Spent in Patient Care: 40 Coding Level of Care Code Established Pt Acute Assistant Infant Teacher for Chg Fwd Patient Type Established History Problem Focused Exam Problem Focused Medical Decision Making Straight Forward Diagnoses ESRD on dialysis N18.6; Z99.2
--- NOTE | 2022-03-16 18:36 | PC.NURSE ---
Shift Summary: Uneventful shift. Patient rested in bed for most of the day, was up to the chair for 1 hour, but had to get back to bed due to fatigue. On bipap at 35% for most of the day, on 4L NC when eating meals. Occaisonal caridac meds held due to borderline bradycardia, notified. Dialysis is likely tomorrow.
[2022-03-16] MEDS: CLONazepam 0.5 mg Tablet PO (20:31)
[2022-03-16] MEDS: morphine IR 15 mg Tablet PO (20:31)
[2022-03-16] MEDS: amlodipine 10 mg Tablet PO (20:33)
--- NOTE | 2022-03-16 21:40 | PC.NURSE ---
Shift report by Nura Celis RN. Patient resting on Bipap %30 Fi02. Heart murmur auscultated upon patient assessment. Physician notified of finding that had not been previously observed. Patient reported pain level of 6 in Right abdomen, treated with PO morphine.
[2022-03-17] VITALS (61 sets, daily range): BP systolic 143–171; BP diastolic 83–112; PULSE 64–92; RESP 0–26; TEMP 36.6–37.1; O2SAT 91–97; BMI 23.3
[2022-03-17 04:51] LABS: Basophils % 1.1 %; Eosinophils # 0.3 10^3/uL (0.0-0.8); Eosinophils % 8.5 %; Hematocrit 24.8 % (42.0-52.0); Hemoglobin 7.6 g/dL (11.7-16.6); Lymphocytes # 0.6 10^3/uL (0.8-4.8); Lymphocytes % 17.3 %; Mean Corpuscular HGB Conc 30.6 g/dL (30.0-36.0); Mean Corpuscular Volume 87.9 fl (80-94); Mean Platelet Volume 9.2 fL (7.4-10.4); Monocytes # 0.3 10^3/uL (0.2-0.9); Monocytes % 7.9 %; Neutrophils # 2.29 10^3/uL (1.8-7.7); Neutrophils % 64.9 %; Nucleated Red Blood Cells % 0 %; Platelet Count 157 10^3/cmm (130-400); Red Blood Count 2.82 10^6/uL (4.1-5.3); Red Cell Distribution Width 18.7 % (12.1-15.1); White Blood Count 3.5 10^3/uL (4.0-10.0)
[2022-03-17 05:20] LABS: Anion Gap 17.1 (5-19); Blood Urea Nitrogen 35 mg/dL (6-20); Calcium 9.5 mg/dL (8.5-10.5); Carbon Dioxide 29 mmol/L (22-29); Chloride 93 mmol/L (98-107); Glomerular Filtration Rate 8.4 mL/min (90-130); Glucose 81 mg/dL (65-115); Osmolality Calculated 285 mOsm/kg (285-295); Potassium 5.1 mmol/L (3.5-5.1); Sodium 134 mmol/L (136-145)
[2022-03-17] MEDS: ipratropium-albuterol 3 mL Neb INHALATION ×3 (07:49→19:55)
[2022-03-17] MEDS: hyDRALAzine 50 mg Tablet PO ×3 (08:50→20:46)
[2022-03-17] MEDS: minoxidil 10 mg Tablet 2.5 MG PO ×2 (08:50→17:51)
[2022-03-17] MEDS: quetiapine 25 mg Tablet PO (08:50)
[2022-03-17] MEDS: pantoprazole DR 40 mg Tablet PO (08:50)
[2022-03-17] MEDS: lisinopril 20 mg Tablet 40 MG PO (08:50)
[2022-03-17] MEDS: isosorbide mononitrate ER 60 mg Tablet PO (08:51)
[2022-03-17] MEDS: aspirin 81 mg EC Tablet PO (08:51)
[2022-03-17] MEDS: sennosides-docusate Tablet 1 TAB PO (08:51)
[2022-03-17] MEDS: carvedilol 25 mg Tablet PO ×2 (08:51→17:51)
[2022-03-17] MEDS: cloNIDine 0.1 mg Tablet 0.2 MG PO ×3 (08:51→20:46)
[2022-03-17] MEDS: cefepime 1,000 MG in sodium chloride 0.9% (plus) 50 ML 100 MG IV (08:52)
[2022-03-17] MEDS: heparin 5,000 unit/mL INJ 1 mL 5000 UNIT SUBCUT ×2 (08:52→20:47)
[2022-03-17] MEDS: piperacillin-tazobactam 3.375 GM in sodium chloride 0.9% (plus) 50 ML IV ×2 (08:53→20:47)
--- NOTE | 2022-03-17 10:20 | PC.SOCIAL ---
Pg 2 IMM Explained to pt Pg 2 IMM. No questions voiced. Provided pt a copy. Initialed, dated, & timed a copy & placed in chart.
--- NOTE | 2022-03-17 11:53 | PM.PN ---
Subjective Subjective: c/o SOB Medications: Reviewed: Yes Vitals/I&O/Wt Last Vital Signs Temp 98 F 03/17/22 07:51 Pulse 66 03/17/22 11:27 Resp 12 03/17/22 10:00 BP 146/88 03/17/22 10:00 Pulse Ox 95 03/17/22 11:27 O2 Del Method 03/17/22 07:45 O2 Flow Rate 35 03/16/22 08:37 FiO2 30 03/17/22 11:27 03/16/22 03/17/22 03/17/22 22:59 06:59 14:59 Intake Total 526 / 1336 290 / 1626 Balance 526 / 1336 290 / 1626 Weight last 48 hrs Weight 78.018 kg Weight 78.426 kg Physical Exam Narrative: Currently sitting upt. On nasal cannula Bilateral breath sound with rhonchi Venous stasis dermatitis Edema of legs positive Abdomen soft, umbilical hernia Abdomen is nontender Data : 03/17/22 04:40 03/17/22 04:40 Micro: Microbiology 03/14/22 21:39 Gram Stain - Final Sputum - Expectorated Sputum Sputum Culture - Final A&P Assessment and plan (1) ESRD on dialysis: 1.? End-stage renal disease: On HD per MWF schedule, patient? presented with volume overload hypertensive urgency and hyperkalemia.?Plan for HD today -3 and half hours 2K and 3 to 4 L ultrafiltration 2.? Hypertensive urgency: s/p? nitro drip, restarted home medications , BP improved 3.? Hyperkalemia: improved 4.? Acute on chronic respiratory failure: On BiPAP currently, due to volume overload and possible COPD Patient evaluated using audiovisual cart.? Time spent 35 minutes. Attestations Medical Necessity Statement*: Continue medical management requiring more than 2 midnight Time Spent in Patient Care: 40 Coding Level of Care Code Acute Residential Tech for Chg Fwd Diagnoses ESRD on dialysis N18.6; Z99.2
--- NOTE | 2022-03-17 12:05 | PC.CHAP ---
Pastoral Care Encounter/Spiritual Assessment Type of Contact [] Declined brands editor visit [] Patient/Family/Request visit [] Outpatient visit [] Follow-up visit [] Physician referral [] Code/Alert [x] Routine visit [] Staff referral [] Actively dying [x] Patient sleeping [] Family support [] [] Out of room [] Palliative care [] [] Receiving care in room [] Pre-surgical visit [] Trauma [] Long length of stay [x] ICU visit [x] Other: oxygen Relational/Emotional Strength [] Patient feels connected with others/family/visitors/staff [] Distress [] Loneliness/isolation [] Abandonment Spirituality of Patient [] Person of Ct [] Attends Congregational of their Ct [] Believes in Prayer [] Reads Bible or Hindu materials [] There are Spiritual issues to be addressed Voting Machine Mechanic Interventions [x] Prayer [] Active listening [] Non-anxious presence [] Spiritual/emotional support [] Crisis/trauma care [] Spiritual counseling [] Bereavement support [] Provided bereavement packet [] Provided Bible/devotional materials [] Provided toy/stuffed animal, coloring book to patient or family member [] Provided Communion [] Anointing/[place] [] Salvation [x] Completed spiritual assessment [] Other: Impact on Illness or Injury [] Angry [] Fearful [] Anxious [] Often cries [] Exhaustion [] Unable to work [] Unable to attend baptist [] Unable to walk/stand [] Unable to read [] Unable to drive [] Unable to eat/drink [] Unable to sleep [] Unable to be with family [] Patient intubated [] Other: Summary Time spent with patient
--- NOTE | 2022-03-17 12:51 | P.PN_ITS ---
Vitals/I&O/Wt Last Vital Signs Temp 98 F 03/17/22 07:51 Pulse 66 03/17/22 11:27 Resp 12 03/17/22 10:00 BP 146/88 03/17/22 10:00 Pulse Ox 95 03/17/22 11:27 O2 Del Method 03/17/22 07:45 O2 Flow Rate 35 03/16/22 08:37 FiO2 30 03/17/22 11:27 03/16/22 03/17/22 03/17/22 22:59 06:59 14:59 Intake Total 526 / 1336 290 / 1626 Balance 526 / 1336 290 / 1626 Weight last 48 hrs Weight 78.018 kg Weight 78.426 kg Physical Exam Const: COMMON NORMALS: no acute distress and patient oriented x3 Resp: COMMON NORMALS: normal respiratory effort, No retractions and No use of accessory muscles AUSCULTATION: wheezes Cardio: COMMON NORMALS: regular rate, regular rhythm, S1 normal heart sound present and S2 normal heart sound present RATE: regular rate RHYTHM: reg ular rhythm HEART SOUNDS: S1 normal heart sound present and S2 normal heart sound present GI: COMMON NORMALS: Normal to inspection, nondistended, normoactive bowel sounds present and non-tender Extremity: COMMON NORMALS: no pedal edema Neuro: COMMON NORMALS: patient oriented x3 Psych: COMMON NORMALS: mental status grossly normal Data : 03/17/22 04:40 03/17/22 04:40 Micro: Microbiology 03/14/22 21:39 Gram Stain - Final Sputum - Expectorated Sputum Sputum Culture - Final A&P Assessment and plan (1) Abdominal ascites: (2) Generalized anxiety disorder with panic attacks: (3) Chronic respiratory failure: (4) End stage renal disease: (5) ESRD on dialysis: (6) COPD (chronic obstructive pulmonary disease): (7) Community acquired pneumonia: (8) Hypertensive emergency: Plan #Acute on chronic hypoxic respiratory failure #Right sided pneumonia #Fluid overload Respiratory status improved, alert oriented x3, still wheezing on exam Currently on BiPAP Patient uses 3 L of oxygen at home and does use BiPAP at home as well DuoNeb Continue BiPAP Will give 1 dose of 125 mg Solu-Medrol, with followed by 40 IV every 8 hours Wean off nitro drip. dialysis session again today. Chest pain at admission. No longer having chest pain. Troponins negative. Delta negative. -Continue IV Zosyn for now for pneumonia -Follow blood cultures, respiratory cultures -Follow echocardiogram #End-stage renal disease Thursday dialysis sessions Consulted nephro Did not complete dialysis session on day of admission. Presented to ER instead. Dialysis as per nephrology Continue BiPAP as needed #Hypertensive emergency, resolving -No focal neurologic deficits -Continue home blood pressure medications, adding clonidine #Preserved ejection fraction heart failure no acute exacerbation He is prone to develop pulm edema related to fluid overload due to end-stage renal disease as well Ascites multiple paracentesis in the past Unkept appearance Patient is full code Renal diet Attestations Medical Necessity Statement*: Patient requires hospitalization for acute on chronic respiratory failure, pneumonia, fluid overload, end-stage renal disease, hypertensive emergency, Coding Level of Care Code Acute Field Nurse Case Manager for Chg Fwd Diagnoses Abdominal ascites R18.8 Generalized anxiety disorder with panic attacks F41.1; F41.0 Chronic respiratory failure J96.10 End stage renal disease N18.6 ESRD on dialysis N18.6; Z99.2 COPD (chronic obstructive pulmonary disease) J44.9 Community acquired pneumonia J18.9 Hypertensive emergency I16.1
[2022-03-17] MEDS: morphine IR 15 mg Tablet PO (20:45)
[2022-03-17] MEDS: amlodipine 10 mg Tablet PO (20:45)
[2022-03-17] MEDS: CLONazepam 0.5 mg Tablet PO (20:46)
--- NOTE | 2022-03-17 22:45 | USCV_ITS ---
Mal Gibbs Age: 41 Gender: M : 1980 Exam Date: 03/17/2022 00:49 Ordering Phys: Bob Gonzalez MD Technologist: Jenny Cano [place] [facility] [place]: New Murmur IVDU Hx BP: 160 / 93 HR: 67 Rhythm: Sinus Technical Quality: Adequate MEASUREMENTS (Male / Female) Normal Values 2D ECHO LV Diastolic Diameter PLAX 5.1 cm 4.2 - 5.9 / 3.9 - 5.3 cm LV Systolic Diameter PLAX 3.5 cm LV Chamber Size 4.9 cm IVS Diastolic Thickness 1.8 cm 0.6 - 1.0 / 0.6 - 0.9 cm IVS Systolic Thickness 2.0 cm LVPW Diastolic Thickness 1.9 cm 0.6 - 1.0 / 0.6 - 0.9 cm LVPW Systolic Thickness 2.7 cm RV Chamber Size 4.3 cm LVOT Diameter 2.0 cm LV Ejection Fraction 2D Teich 57.3 % LV Ejection Fraction MOD 2C 69.2 % LV Ejection Fraction 2C AL 69.8 % LA Diameter 5.0 cm LA Width 4.1 cm LA Height 5.4 cm RA Width 5.5 cm RA Height 5.3 cm Aorta at Sinotubular Diameter 2.6 cm IVC Diameter 1.9 cm M-MODE Aortic Annulus Diameter 3.8 cm LA Ao Ratio MM 1.5 MV E Point Septal Separation 0.6 cm DOPPLER AV Peak Velocity 223.0 cm/s LVOT Peak Velocity 125.0 cm/s AV Area Cont Eq vti 2.0 cm squared AV Area Cont Eq pk 1.8 cm squared MV Area PHT 3.6 cm squared Mitral E to A Ratio 1.8 MV E' Velocity 92.2 cm/s Mitral E to MV E' Ratio 9.3 Mitral E to LV E' Lateral Ratio 19.4 Mitral E to LV E' Septal Ratio 6.1 TR Peak Velocity 300.5 cm/s TR Peak Gradient 36.1 mmHg TR Mean Velocity 230.0 cm/s TR Mean Gradient 24.4 mmHg TR Velocity Time Integral 108.4 cm TV Peak E Velocity 79.0 cm/s Right Atrial Pressure 3.0 mmHg Pulmonary Artery Systolic Pressu 39.1 mmHg RV Acceleration Time 0.1 s RV Ejection Time 0.4 s RV AcT/ET 0.4 FINDINGS Left Ventricle Normal left ventricular size and systolic function, EF 63 %. Moderate concentric left ventricular hypertrophy. No regional wall motion abnormalities. Grade III/IV diastolic dysfunction (restrictive filling pattern), severely elevated filling pressures. Right Ventricle The right ventricle is normal in size and function. Right Atrium Mildly increased right atrial size. Left Atrium Moderately increased left atrial size. Mitral Valve Mild mitral valve regurgitation. Aortic Valve Thickened aortic valve. Tricuspid Valve Mild tricuspid valve regurgitation. Pulmonic Valve Structurally normal pulmonic valve without significant stenosis. There is no pulmonic regurgitation. Pericardium Small pericardial effusion. Aorta Normal aortic annulus size. IVC Normal inferior vena cava. CONCLUSIONS Normal left ventricular size and systolic function, EF 63 %. Moderate concentric left ventricular hypertrophy. No regional wall motion abnormalities. Grade III/IV diastolic dysfunction (restrictive filling pattern), severely elevated filling pressures. Moderately increased left atrial size. Thickened aortic valve. Mildly increased right atrial size. Mild mitral valve regurgitation. Mild tricuspid valve regurgitation. Small pericardial effusion. Compared to the study from 11/22/2021, there may not be a significant change Dr Ruba Hussein MD FAC (Electronically Signed) Final Date: 17 March 2022 08:10 S
[2022-03-18] VITALS (46 sets, daily range): BP systolic 137–166; BP diastolic 74–121; PULSE 72–91; RESP 0–27; TEMP 36.9–37.1; O2SAT 92–99; BMI 23.3
[2022-03-18] MEDS: ipratropium-albuterol 3 mL Neb INHALATION ×4 (03:21→20:22)
[2022-03-18 04:02] LABS: Basophils % 0.2 %; Eosinophils % 0.2 %; Hematocrit 26.9 % (42.0-52.0); Hemoglobin 8.4 g/dL (11.7-16.6); Lymphocytes # 0.2 10^3/uL (0.8-4.8); Lymphocytes % 5.4 %; Mean Corpuscular HGB Conc 31.2 g/dL (30.0-36.0); Mean Corpuscular Hemoglobin 26.5 pg (28.0-34.0); Mean Corpuscular Volume 84.9 fl (80-94); Mean Platelet Volume 9.6 fL (7.4-10.4); Monocytes # 0.2 10^3/uL (0.2-0.9); Monocytes % 3.6 %; Neutrophils % 90.1 %; Nucleated Red Blood Cells % 0 %; Platelet Count 179 10^3/cmm (130-400); Red Blood Count 3.17 10^6/uL (4.1-5.3); Red Cell Distribution Width 18.6 % (12.1-15.1); White Blood Count 4.1 10^3/uL (4.0-10.0)
[2022-03-18 04:56] LABS: Alanine Aminotransferase 6 U/L (0-41); Albumin Level 3.1 g/dL (3.5-5.2); Alkaline Phosphatase 109 U/L (40-130); Anion Gap 14.8 (5-19); Aspartate Amino Transferase 11 U/L (0-40); Blood Urea Nitrogen 26 mg/dL (6-20); C Reactive Protein 48.7 mg/L (0.0-4.9); Carbon Dioxide 30 mmol/L (22-29); Chloride 91 mmol/L (98-107); Globulin 3.5 g/dL (1.3-4.6); Glomerular Filtration Rate 11.4 mL/min (90-130); Glucose 140 mg/dL (65-115); Osmolality Calculated 279 mOsm/kg (285-295); Phosphorus 4.7 mg/dL (2.5-4.5); Potassium 4.8 mmol/L (3.5-5.1); Sodium 131 mmol/L (136-145); Total Bilirubin 0.4 mg/dL (0.15-1.2); Total Protein 6.6 g/dL (6.6-8.7)
[2022-03-18 05:23] LABS: NT Pro B Type Natriuretic Pept > 70000 pg/mL (0-125)
[2022-03-18] MEDS: minoxidil 10 mg Tablet 2.5 MG PO ×2 (09:42→17:07)
[2022-03-18] MEDS: carvedilol 25 mg Tablet PO ×2 (09:43→17:07)
[2022-03-18] MEDS: piperacillin-tazobactam 3.375 GM in sodium chloride 0.9% (plus) 50 ML IV ×2 (09:43→21:22)
[2022-03-18] MEDS: cloNIDine 0.1 mg Tablet 0.2 MG PO ×3 (09:43→21:21)
[2022-03-18] MEDS: hyDRALAzine 50 mg Tablet PO ×3 (09:43→21:21)
[2022-03-18] MEDS: sennosides-docusate Tablet 1 TAB PO (09:43)
[2022-03-18] MEDS: aspirin 81 mg EC Tablet PO (09:43)
[2022-03-18] MEDS: isosorbide mononitrate ER 60 mg Tablet PO (09:43)
[2022-03-18] MEDS: quetiapine 25 mg Tablet PO (09:43)
[2022-03-18] MEDS: lisinopril 20 mg Tablet 40 MG PO (09:43)
[2022-03-18] MEDS: pantoprazole DR 40 mg Tablet PO (09:43)
[2022-03-18] MEDS: heparin 5,000 unit/mL INJ 1 mL 5000 UNIT SUBCUT ×2 (09:44→21:21)
[2022-03-18] MEDS: cefepime 1,000 MG in sodium chloride 0.9% (plus) 50 ML 100 MG IV (09:44)
--- NOTE | 2022-03-18 12:37 | PM.PN ---
Subjective Subjective: Patient was seen this morning, he feels a better, wheezing is improved, currently on BiPAP, following all commands Vitals/I&O/Wt Last Vital Signs Temp 98.8 F 03/18/22 10:00 Pulse 76 03/18/22 10:00 Resp 15 03/18/22 10:00 BP 155/88 03/18/22 08:00 Pulse Ox 97 03/18/22 10:00 O2 Del Method 03/18/22 10:00 O2 Flow Rate 3.5 03/17/22 19:56 FiO2 30 03/18/22 10:00 03/17/22 03/18/22 03/18/22 22:59 06:59 14:59 Intake Total 940 / 1040 450 / 1490 Output Total 4300 / 4300 0 / 0 Balance -3360 / -3260 450 / -2810 0 / 0 Weight last 48 hrs Weight 78.018 kg Weight 78.018 kg Physical Exam Const: COMMON NORMALS: no acute distress and patient oriented x3 Resp: COMMON NORMALS: normal respiratory effort, No retractions, No use of accessory muscles and clear to auscultation bilaterally AUSCULTATION: clear to auscultation bilaterally Cardio: COMMON NORMALS: regular rate, regular rhythm, S1 normal heart sound present and S2 normal heart sound present RATE: regular rate RHYTHM: regular rhythm HEART SOUNDS: S1 normal heart sound present and S2 normal heart sound present GI: COMMON NORMALS: Normal to inspection, nondistended, normoactive bowel sounds present and non-tender Extremity: COMMON NORMALS: no pedal edema Neuro: COMMON NORMALS: patient oriented x3 Psych: COMMON NORMALS: mental status grossly normal Data 03/18/22 03:37 03/18/22 03:37 Micro: Microbiology 03/14/22 21:39 Gram Stain - Final Sputum - Expectorated Sputum Sputum Culture - Final A&P Assessment and plan (1) Abdominal ascites: (2) Generalized anxiety disorder with panic attacks: (3) Chronic respiratory failure: (4) End stage renal disease: (5) ESRD on dialysis: (6) COPD (chronic obstructive pulmonary disease): (7) Community acquired pneumonia: (8) Hypertensive emergency: Plan #Acute on chronic hypoxic respiratory failure #Right sided pneumonia #Fluid overload Respiratory status improved, alert oriented x3, still wheezing on exam Currently on BiPAP Patient uses 3 L of oxygen at home and does use BiPAP at home as well DuoNeb Continue BiPAP Continue Solu-Medrol with followed by 40 IV every 8 hours dialysis session as per nephrology Chest pain at admission. No longer having chest pain. Troponins negative. Delta negative. -Continue IV Zosyn for now for pneumonia -Follow blood cultures, respiratory cultures -Follow echocardiogram Normal left ventricular size and systolic function, EF 63 %.? ?Moderate concentric left ventricular hypertrophy. No regional ?wall motion abnormalities. Grade III/IV diastolic dysfunction ?(restrictive filling pattern), severely elevated filling ?pressures. ?Moderately increased left atrial size. ?Thickened aortic valve. ?Mildly increased right atrial size. ?Mild mitral valve regurgitation. ?Mild tricuspid valve regurgitation. ?Small pericardial effusion. ?Compared to the study from 11/22/2021, there may not be a ?significant change #End-stage renal disease Thursday dialysis sessions Consulted nephro Did not complete dialysis session on day of admission. Presented to ER instead. Dialysis as per nephrology Continue BiPAP as needed #Hypertensive emergency, resolving -No focal neurologic deficits -Continue home blood pressure medications, adding clonidine #Preserved ejection fraction heart failure no acute exacerbation He is prone to develop pulm edema related to fluid overload due to end-stage renal disease as well Ascites multiple paracentesis in the past We will moved to general medical floors, continue antibiotic therapy, cefepime stopped, monitor for the next 24 hours, discharged Patient is full code Renal diet Attestations Medical Necessity Statement*: Patient requires hospitalization for fluid overload, pneumonia Coding Level of Care Code Acute Threat Monitoring Analyst for Chg Fwd Diagnoses Abdominal ascites R18.8 Generalized anxiety disorder with panic attacks F41.1; F41.0 Chronic respiratory failure J96.10 End stage renal disease N18.6 ESRD on dialysis N18.6; Z99.2 COPD (chronic obstructive pulmonary disease) J44.9 Community acquired pneumonia J18.9 Hypertensive emergency I16.1
--- NOTE | 2022-03-18 13:19 | P.PN_ITS ---
Subjective Subjective: doing well Medications: Reviewed: Yes Vitals/I&O/Wt Last Vital Signs Temp 98.8 F 03/18/22 10:00 Pulse 76 03/18/22 10:00 Resp 15 03/18/22 10:00 BP 155/88 03/18/22 08:00 Pulse Ox 97 03/18/22 10:00 O2 Del Method 03/18/22 10:00 O2 Flow Rate 3.5 03/17/22 19:56 FiO2 30 03/18/22 10:00 03/17/22 03/18/22 03/18/22 22:59 06:59 14:59 Intake Total 940 / 1040 450 / 1490 Output Total 4300 / 4300 0 / 0 Balance -3360 / -3260 450 / -2810 0 / 0 Weight last 48 hrs Weight 78.018 kg Weight 78.018 kg Physical Exam Const: COMMON NORMALS: no acute distress and patient oriented x3 Resp: COMMON NORMALS: normal respiratory effort, No retractions, No use of accessory muscles and clear to auscultation bilaterally AUSCULTATION: clear to auscultation bilaterally Cardio: COMMON NORMALS: regular rate, regular rhythm, S1 normal heart sound present and S2 normal heart sound present RATE: regular rate RHYTHM: regular rhythm HEART SOUNDS: S1 normal heart sound present and S2 normal heart sound present GI: COMMON NORMALS: Normal to inspection, nondistended, normoactive bowel sounds present and non-tender Extremity: COMMON NORMALS: no pedal edema Neuro: COMMON NORMALS: patient oriented x3 Psych: COMMON NORMALS: mental status grossly normal Data : 03/18/22 03:37 03/18/22 03:37 Micro: Microbiology 03/14/22 21:39 Gram Stain - Final Sputum - Expectorated Sputum Sputum Culture - Final A&P Assessment and plan (1) ESRD on dialysis: Plan (1) ESRD on dialysis: 1.? End-stage renal disease: On HD per [facility] schedule, patient? presented with volume overload hypertensive urgency and hyperkalemia.?HD tomorrow 2.? Hypertensive urgency: s/p? nitro drip, restarted home medications , BP impro levy 3.? Hyperkalemia: improved 4.? Acute on chronic respiratory failure: On BiPAP currently, due to volume overload and possible COPD Patient evaluated using audiovisual cart.? Time spent 35 minutes. Attestations Medical Necessity Statement*: Patient requires hospitalization for fluid overload, pneumonia Coding Level of Care Code Acute Gang Punch Operator for Chg Fwd Diagnoses ESRD on dialysis N18.6; Z99.2
[2022-03-18] MEDS: CLONazepam 0.5 mg Tablet PO (21:21)
[2022-03-18] MEDS: amlodipine 10 mg Tablet PO (21:21)
[2022-03-19] VITALS (9 sets, daily range): BP systolic 140–160; BP diastolic 73–82; PULSE 67–96; RESP 12–18; TEMP 36.7–37.2; O2SAT 95–99
[2022-03-19] MEDS: acetaminophen 500 mg Tablet PO (01:56)
[2022-03-19] MEDS: ipratropium-albuterol 3 mL Neb INHALATION (02:44)
[2022-03-19 03:07] LABS: Hemoglobin 8.6 g/dL (11.7-16.6); Lymphocytes # 0.3 10^3/uL (0.8-4.8); Lymphocytes % 3.9 %; Mean Corpuscular HGB Conc 30.7 g/dL (30.0-36.0); Mean Corpuscular Hemoglobin 26.5 pg (28.0-34.0); Mean Corpuscular Volume 86.2 fl (80-94); Mean Platelet Volume 10.2 fL (7.4-10.4); Monocytes # 0.2 10^3/uL (0.2-0.9); Monocytes % 2.2 %; Neutrophils # 6.68 10^3/uL (1.8-7.7); Neutrophils % 93.1 %; Nucleated Red Blood Cells % 0 %; Platelet Count 206 10^3/cmm (130-400); Red Blood Count 3.25 10^6/uL (4.1-5.3); Red Cell Distribution Width 18.7 % (12.1-15.1); White Blood Count 7.2 10^3/uL (4.0-10.0)
[2022-03-19 03:21] LABS: Alanine Aminotransferase 6 U/L (0-41); Albumin Level 3.3 g/dL (3.5-5.2); Alkaline Phosphatase 110 U/L (40-130); Anion Gap 19.8 (5-19); Aspartate Amino Transferase 11 U/L (0-40); Blood Urea Nitrogen 42 mg/dL (6-20); C Reactive Protein 35.2 mg/L (0.0-4.9); Calcium 10.3 mg/dL (8.5-10.5); Carbon Dioxide 27 mmol/L (22-29); Chloride 91 mmol/L (98-107); Globulin 3.7 g/dL (1.3-4.6); Glucose 115 mg/dL (65-115); Magnesium 2.2 mg/dL (1.7-2.3); Osmolality Calculated 285 mOsm/kg (285-295); Phosphorus 5.9 mg/dL (2.5-4.5); Potassium 5.8 mmol/L (3.5-5.1); Sodium 132 mmol/L (136-145); Total Bilirubin 0.4 mg/dL (0.15-1.2)
[2022-03-19 03:57] LABS: NT Pro B Type Natriuretic Pept > 70000 pg/mL (0-125)
--- NOTE | 2022-03-19 10:44 | PC.SOCIAL ---
IMM update IMM updated with patient. Verbalized an understanding. Copy Pg 2 provided. Initialled, dated, timed, and placed in chart.
[2022-03-19] MEDS: quetiapine 25 mg Tablet PO (11:00)
[2022-03-19] MEDS: hyDRALAzine 50 mg Tablet PO (11:01)
[2022-03-19] MEDS: isosorbide mononitrate ER 60 mg Tablet PO (11:01)
[2022-03-19] MEDS: cloNIDine 0.1 mg Tablet 0.2 MG PO (11:01)
[2022-03-19] MEDS: carvedilol 25 mg Tablet PO (11:01)
[2022-03-19] MEDS: lisinopril 20 mg Tablet 40 MG PO (11:01)
[2022-03-19] MEDS: aspirin 81 mg EC Tablet PO (11:02)
[2022-03-19] MEDS: pantoprazole DR 40 mg Tablet PO (11:02)
[2022-03-19] MEDS: sennosides-docusate Tablet 1 TAB PO (11:02)
[2022-03-19] MEDS: insulin regular-human 10 UNIT in SYRINGE 1 EACH IVP (11:04)
[2022-03-19] MEDS: heparin 5,000 unit/mL INJ 1 mL 5000 UNIT SUBCUT (11:08)
[2022-03-19] MEDS: piperacillin-tazobactam 3.375 GM in sodium chloride 0.9% (plus) 50 ML IV (11:12)
[2022-03-19] MEDS: minoxidil 10 mg Tablet 2.5 MG PO (11:53)
--- NOTE | 2022-03-19 12:16 | PM.DCS ---
Discharge Providers Date of Admission: 03/14/22 20:17 Date of Discharge: March 19, 2022 Attending Provider at Admission: Emanuel Nation MD Attending Provider at Discharge: Tunde Umana MD Primary Care Provider: Mal Peres DO Diagnoses at Discharge Discharge Diagnosis (1) ESRD on dialysis: Status: Acute Reason for Visit Reason for Visit: chest pain Hospital Course Hospital Course This is a 41-year-old male with a past medical history of end-stage renal disease on hemodialysis, hypertension, noncompliance, COPD, uses BiPAP at home, who presents [facility] for shortness of breath Patient was admitted to [facility] for acute on chronic hypoxic respiratory failure with right-sided pneumonia, fluid overload, managed in the ICU with BiPAP steroid therapy antibiotic therapy, dialysis therapy, and clinically monitored. Overall patient clinically improved, will be discharged on prednisone burst, Augmentin therapy with close follow-up with primary care provider as outpatient. Patient was advised of the importance of dialysis, to keep up with his dialysis schedule. He also had hypertensive emergency during his hospitalization, requiring blood pressure management, discharged on blood pressure regimen. Advised of compliance, follow with primary care provider in 1 week for blood pressure check Physical Exam Const: COMMON NORMALS: no acute distress and patient oriented x3 Resp: COMMON NORMALS: normal respiratory effort, No retractions, No use of accessory muscles and clear to auscultation bilaterally AUSCULTATION: clear to auscultation bilaterally Cardio: COMMON NORMALS: regular rate, regular rhythm, S1 normal heart sound present and S2 normal heart sound present RATE: regular rate RHYTHM: regular rhythm HEART SOUNDS: S1 normal heart sound present and S2 normal heart sound present GI: COMMON NORMALS: Normal to inspection, nondistended, normoactive bowel sounds present and non-tender Extremity: COMMON NORMALS: no pedal edema Neuro: COMMON NORMALS: patient oriented x3 Psych: COMMON NORMALS: mental status grossly normal Discharge Data Studies Completed and Pending Completed Studies During Hospitalization Category Date Time Status CT angio chest PE protcl [id number] Stat Cat Scan 03/14/22 17:[address] head wo con* [id number] Stat Cat Scan 03/14/22 16:20 Completed XR chest 1V portable [id number] Stat Exams 03/14/22 14:02 Completed CV. echo complete* [id number] Routine Ultrasound 03/17/22 22:45 Completed Pending at discharge Category Date Time Status Blood Culture Stat Lab 03/14/22 15:25 Results C Reactive Protein AM LABS Lab 03/20/22 04:00 Ordered Complete Blood Count w/Auto AM LABS Lab 03/20/22 04:00 Ordered Comprehensive Metabolic Panel AM LABS Lab 03/20/22 04:00 Ordered Magnesium AM LABS Lab 03/20/22 04:00 Ordered NT Pro B Type Natriuretic Pept QAM Lab 03/20/22 06:00 Ordered Phosphorus AM LABS Lab 03/20/22 04:00 Ordered Radiology Impressions Chest X-Ray 03/14/22 14:02 IMPRESSION: No acute findings. Head CT 03/14/22 16:20 IMPRESSION: Negative for acute intracranial abnormality Chest CTA 03/14/22 17:04 IMPRESSION: 1. Negative for pulmonary embolism. 2. Heavy coronary artery calcifications. 3. Negative for right heart strain 4. Right lower lobe pneumonia. 5. Diffuse abdominal ascites Laboratory Results WBC 7.2 10^3/uL (4.0-10.0) 03/19/22 02:09 RBC 3.25 10^6/uL (4.1-5.3) L 03/19/22 02:09 Hgb 8.6 g/dL (11.7-16.6) L 03/19/22 02:09 Hct 28.0 % (42.0-52.0) L 03/19/22 02:09 MCV 86.2 fl (80-94) 03/19/22 02:09 MCH 26.5 pg (28.0-34.0) L 03/19/22 02:09 MCHC 30.7 g/dL (30.0-36.0) 03/19/22 02:09 RDW 18.7 % (12.1-15.1) H 03/19/22 02:09 Plt Count 206 10^3/cmm (130-400) 03/19/22 02:09 MPV 10.2 fL (7.4-10.4) 03/19/22 02:09 Neut % (Auto) 93.1 % 03/19/22 02:09 Lymph % (Auto) 3.9 % 03/19/22 02:09 [place] % (Auto) 2.2 % 03/19/22 02:09 Eos % (Auto) 0.0 % 03/19/22 02:09 Baso % (Auto) 0.0 % 03/19/22 02:09 Neut # (Auto) 6.68 10^3/uL (1.8-7.7) 03/19/22 02:09 Lymph # (Auto) 0.3 10^3/uL (0.8-4.8) L 03/19/22 02:09 [place] # (Auto) 0.2 10^3/uL (0.2-0.9) 03/19/22 02:09 Eos # (Auto) 0.0 10^3/uL (0.0-0.8) 03/19/22 02:09 Baso # (Auto) 0.0 10^3/uL (0.0-0.1) 03/19/22 02:09 Nucleated RBC % (auto) 0 % 03/19/22 02:09 Nucleated RBCs # 0.0 /100WBC 03/19/22 02:09 PT 15.10 SECONDS (12.1-14.9) H 03/14/22 14:00 INR 1.15 (0.8-1.2) 03/14/22 14:00 APTT 45.3 SECONDS (23.9-36.7) H 03/14/22 14:00 Specimen Type Arterial 03/15/22 04:31 Sample Site Radial, right 03/15/22 04:31 ABG pH 7.39 (7.35-7.45) 03/15/22 04:31 ABG pCO2 52.1 mmHg (35-45) H 03/15/22 04:31 ABG pO2 67.2 mmHg (80.0-100.0) L 03/15/22 04:31 ABG HCO3 31.2 mmol/L (22-26) H 03/15/22 04:31 ABG O2 Saturation 97.6 03/14/22 18:17 ABG Base Excess 5.2 mmol/L (-2.0-2.0) H 03/15/22 04:31 Alexei Test Pos 03/15/22 04:31 A-a O2 Gradient 14.0 mmHg (5-10) H 03/14/22 18:17 Hematocrit 32.8 % (42-52) L 03/15/22 04:31 Hgb O2 Saturation 94.3 % (95-100) L 03/14/22 18:17 Carboxyhemoglobin 2.5 %THgb (0.4-20.1) 03/14/22 18:17 Methemoglobin 0.9 % (0.4-1.5) 03/14/22 18:17 Total Hemoglobin 9.9 g/dL (14-18) L 03/14/22 18:17 Sodium 130.0 mmol/L (131-143) L 03/14/22 18:17 Potassium 5.2 mmol/L (3.5-5.0) H 03/14/22 18:17 Glucose 64.0 mg/dL (70-115) L 03/14/22 18:17 Ionized Calcium 1.2 mmol/L (1.1-1.4) 03/14/22 18:17 O2 Delivery Device Bipap 03/15/22 04:31 O2 Liters/Min 5.0 % 03/14/22 16:30 FiO2 40.0 % 03/15/22 04:31 Automatic Buffer ID Bennett 03/15/22 04:31 Sodium 132 mmol/L (136-145) L 03/19/22 02:09 Potassium 5.8 mmol/L (3.5-5.1) H 03/19/22 02:09 Chloride 91 mmol/L (98-107) L 03/19/22 02:09 Carbon Dioxide 27 mmol/L (22-29) 03/19/22 02:09 Anion Gap 19.8 (5-19) H 03/19/22 02:09 BUN 42 mg/dL (6-20) H 03/19/22 02:09 Creatinine 6.9 mg/dL (0.7-1.2) H* 03/19/22 02:09 GFR Calculation 9.0 mL/min (90-130) L 03/19/22 02:09 Glucose 115 mg/dL (65-115) 03/19/22 02:09 POC Glucose 96 mg/dL (70-110) 03/15/22 08:39 Calculated Osmolality 285 mOsm/kg (285-295) 03/19/22 02:09 Lactic Acid 0.5 mmol/L (0.5-2.2) 03/14/22 15:19 Calcium 10.3 mg/dL (8.5-10.5) 03/19/22 02:09 Phosphorus 5.9 mg/dL (2.5-4.5) H 03/19/22 02:09 Magnesium 2.2 mg/dL (1.7-2.3) 03/19/22 02:09 Total Bilirubin 0.4 mg/dL (0.15-1.2) 03/19/22 02:09 AST 11 U/L (0-40) 03/19/22 02:09 ALT 6 U/L (0-41) 03/19/22 02:09 Alkaline Phosphatase 110 U/L (40-130) 03/19/22 02:09 Ammonia 23 umol/L (16-60) 03/14/22 19:15 Troponin T Baseline 76 ng/L (0-15) H 03/15/22 13:46 Troponin T 120 Minute 79.98 ng/L (0-15) H 03/15/22 15:34 Delta Troponin T 3.98 ABS# (0-10) 03/15/22 15:34 Troponin T Hi Sens 6Hr 79.06 ng/L (0-15) H 03/15/22 19:28 Troponin T Hi Sens 6Hr Delta 3.06 ng/L (0-12) 03/15/22 19:28 C-Reactive Protein 35.2 mg/L (0.0-4.9) H 03/19/22 02:09 NT-Pro-B Natriuret Pep > 76383 pg/mL (0-125) H 03/19/22 02:09 Total Protein 7.0 g/dL (6.6-8.7) 03/19/22 02:09 Albumin 3.3 g/dL (3.5-5.2) L 03/19/22 02:09 Globulin 3.7 g/dL (1.3-4.6) 03/19/22 02:09 Procalcitonin 0.32 ng/mL (0-0.5) 03/14/22 14:00 Vitals Last Vital Signs Temp 98.9 F 03/19/22 11:42 Pulse 96 03/19/22 11:42 Resp 18 03/19/22 11:42 BP 160/81 03/19/22 11:42 Pulse Ox 99 03/19/22 11:42 O2 Del Method 03/19/22 11:42 O2 Flow Rate 4 03/19/22 08:00 FiO2 30 03/19/22 02:44 Discharge Plan Discharge Patient Disposition: Home Condition: Stable Prescriptions: New prednisone 20 mg tablet 20 mg PO BID 5 Days Qty: 10 0RF amoxicillin-pot clavulanate [Augmentin] 500-125 mg tablet 1 tab PO Q12H 7 Days Qty: 14 0RF Continued cyclobenzaprine 10 mg tablet 10 mg PO Q12H PRN (Reason: muscle spasm) Qty: 30 2RF Xifaxan 550 mg tablet 550 mg PO BID Qty: 60 2RF Incruse Ellipta 62.5 mcg/actuation blister with device 1 inh INHALATION DAILY Qty: 30 2RF nitroglycerin 0.4 mg tablet, sublingual 0.4 mg SUBLINGUAL Q5M PRN (Reason: Chest Pain) Qty: 30 5RF Rx Instructions: do not exceed 3 doses per episode clopidogrel 75 mg tablet 75 mg PO DAILY Qty: 90 3RF (DME) DME - BIPAP See Rx Instructions .Route .MEDSUPPLY Qty: 1 0RF Rx Instructions: Inspiratory Pressure: 16mmHg Expiratory Pressure: 8 mmHg Will need oxygen bled in to the machine to maintain sats >/= 90%. (DME) DME - Oxygen See Rx Instructions .Route .MEDSUPPLY Qty: 1 0RF Rx Instructions: Supplemental Oxygen bled into BIPAP at 2-3L to maintain oxygen sats at >/= 90%. carvedilol 25 mg tablet 25 mg PO BID 30 Days Qty: 60 0RF isosorbide mononitrate 60 mg tablet extended release 24 hr 60 mg PO DAILY lisinopril 40 mg Tablet 40 mg PO DAILY lactulose 20 gram/30 mL Solution 10 g PO TID PRN (Reason: Constipation) Auryxia 210 mg iron Tablet 420 mg PO TID Rx Instructions: administer with a meal minoxidil 2.5 mg Tablet 2.5 mg PO BID clonazepam 0.5 mg tablet 0.5 mg PO BEDTIME aspirin 81 mg tablet,delayed release (DR/EC) 81 mg PO DAILY amlodipine 10 mg tablet 10 mg PO BEDTIME pantoprazole 40 mg tablet,delayed release (DR/EC) 40 mg PO DAILY albuterol sulfate 90 mcg/actuation HFA aerosol inhaler 2 puff inhalation Q6H PRN (Reason: Shortness Of Breath Or Wheezing) clonidine HCl 0.2 mg tablet 0.2 mg PO TID hydralazine 50 mg tablet 50 mg PO TID quetiapine 25 mg tablet 25 mg PO DAILY RenaPlex-D 800 mcg-12.5 mg -2,000 unit tablet 1 tab PO QPM Discharge Orders: Discharge Order (Routine); Ordered 03/19/22 Ordered By: Tunde Umana Referrals: Mal Peres DO [Primary Care Provider] - 1-3 days Discharge Diet: Cardiac Discharge Activity: Resume usual activity Patient Instructions: Opioid Safety Activity Restrictions/Additional Instructions: - Please follow-up with primary care provider in 1 week -Take antibiotics as prescribed To-blood pressure medications as prescribed Discharge Attestations Time Spent in Discharge Care*: less than 30 min Status at Discharge: Cognitive status at discharge: cognitively intact, Behavioral status at discharge: cooperative, Quality Metrics Clinical Quality Measures [ No reported AMI, CVA or VTE this stay] Coding Level of Care Code Acute g DC note Diagnoses ESRD on dialysis N18.6; Z99.2
--- NOTE | 2022-03-19 14:29 | PC.NURSE ---
Pt states he does not want to have US before he leaves today he has a paracentesis scheduled every 2 weeks.
== END 2022-03-19 14:33 | disposition home or self-care (01) | DRG 193 ==
LOC: ER 16:32 → ICU 20:25 → MEDSURG 03-18 17:44
PROVIDERS: Internal Medicine; Admitting Provider Internal Medicine; Emergency Provider Family Medicine; PCP Family Medicine; Visit Provider Family Medicine
DX: J18.9 Pneumonia, unspecified organism (principal); J96.21 Acute and chronic respiratory failure with hypoxia; N18.6 End stage renal disease; J44.0 Chronic obstructive pulmonary disease with (acute) lower respiratory infection; I13.2 Hypertensive heart and chronic kidney disease with heart failure and with stage 5 chronic kidney disease, or end stage renal disease; I50.32 Chronic diastolic (congestive) heart failure; R18.8 Other ascites; Z99.2 Dependence on renal dialysis; Z91.15 Patient's noncompliance with renal dialysis; I25.10 Atherosclerotic heart disease of native coronary artery without angina pectoris; Z99.81 Dependence on supplemental oxygen; Z99.89 Dependence on other enabling machines and devices; F32.A Depression, unspecified; Z86.16 Personal history of COVID-19; F17.210 Nicotine dependence, cigarettes, uncomplicated; F41.1 Generalized anxiety disorder; K21.9 Gastro-esophageal reflux disease without esophagitis; I27.20 Pulmonary hypertension, unspecified; Z86.711 Personal history of pulmonary embolism; I16.0 Hypertensive urgency; E87.5 Hyperkalemia; Z79.51 Long term (current) use of inhaled steroids; Z79.82 Long term (current) use of aspirin; Z79.02 Long term (current) use of antithrombotics/antiplatelets; E87.70 Fluid overload, unspecified
CPT/HCPCS: 12345; 36415; 36416; 36600; 70450; 71045; 71275; 80048; 80051; 80053; 82140; 82330; 82803; 82805; 82962; 83605; 83735; 83880; 84100; 84145; 84484; 85025; 85610; 85730; 86140; 87040; 87070; 87205; 87641; 90935; 93005; 93306; 94640; 94660; 94762; 96365; 96367; 96372; 96375; 99285; 99291; J0360; J0692; J1644; J1815; J1956; J2405; J2543; J2920; J2930; J3490; Q3014; Q9967

== ENCOUNTER 2022-03-28 11:03 | Inpatient (IN) | payer MEDICARE, MEDICAID, SELFPAY ==
[2022-03-28] VITALS (7 sets, daily range): BP systolic 146–177; BP diastolic 92–104; PULSE 60–77; RESP 14–20; TEMP 36.5–36.7; O2SAT 96–98
--- NOTE | 2022-03-28 11:40 | ECG_ITS ---
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 Measurements Intervals [place] Rate: 71 P: 40 KS: 200 QRS: 17 QRSD: 114 T: 77 QT: 389 QTc: 425 Interpretive Statements SINUS RHYTHM MODERATE INTRAVENTRICULAR CONDUCTION DELAY [110+ ms QRS DURATION] Compared to ECG 03/14/2022 15:04:48 Intraventricular conduction delay now present Poor R-wave progression no longer present Electronically Signed On 03-29-2022 11:06:08 DICE MANAGER by Brijesh King M.D. [id number]
--- NOTE | 2022-03-28 13:47 | XRR_ITS ---
PROCEDURE INFORMATION: Exam: XR Chest Exam date and time: 03/28/2022 2:54 PM Age: 41 years old Clinical indication: Shortness of breath; Additional info: SOB TECHNIQUE: Imaging protocol: Radiologic exam of the chest. Views: 1 view. COMPARISON: CR XR chest 1V portable [id number] 03/14/2022 3:06 PM FINDINGS: Lungs: Unremarkable. No consolidation. Pleural spaces: Unremarkable. No pleural effusion. No pneumothorax. Heart/Mediastinum: Unremarkable. No cardiomegaly. Bones/joints: Unremarkable. XR/XR chest 1V portable [id number] IMPRESSION: No acute findings.
--- NOTE | 2022-03-28 13:52 | ECG_ITS ---
[facility] Test Date: 2022-03-28 Pat Name: Mal Gibbs Department: Room: Gender: Male Cell Biologist: : 1980 Requested By: Dayana Nunez Order Number: [id number] Mohini MD: Brijesh King M.D. Measurements Intervals [place] Rate: 64 P: 55 W[place]: 201 QRS: 66 QRSD: 109 T: 79 QT: 409 QTc: 424 Interpretive Statements SINUS RHYTHM Compared to ECG 03/28/2022 11:42:20 Intraventricular conduction delay no longer present Electronically Signed On 03-29-2022 11:02:08 MEDICAL RECORDS TECHNICIAN by Brijesh King M.D. [id number]
[2022-03-28] MEDS: morphine 4 mg/mL SDV 1 mL IVP (14:10)
[2022-03-28] MEDS: ondansetron 2 mg/ML SDV 2 mL 4 MG IVP ×2 (14:10→17:38)
[2022-03-28 14:24] LABS: Basophils % 0.2 %; Eosinophils # 0.3 10^3/uL (0.0-0.8); Eosinophils % 3.3 %; Hematocrit 30.9 % (42.0-52.0); Hemoglobin 9.5 g/dL (11.7-16.6); Lymphocytes # 1.1 10^3/uL (0.8-4.8); Lymphocytes % 13.5 %; Mean Corpuscular HGB Conc 30.7 g/dL (30.0-36.0); Mean Corpuscular Hemoglobin 27.4 pg (28.0-34.0); Mean Platelet Volume 9.4 fL (7.4-10.4); Monocytes # 0.6 10^3/uL (0.2-0.9); Monocytes % 7.2 %; Neutrophils # 6.29 10^3/uL (1.8-7.7); Neutrophils % 74.6 %; Nucleated Red Blood Cells # 0.1 /100WBC; Nucleated Red Blood Cells % 0.7 %; Platelet Count 216 10^3/cmm (130-400); Red Blood Count 3.47 10^6/uL (4.1-5.3); White Blood Count 8.4 10^3/uL (4.0-10.0)
--- NOTE | 2022-03-28 14:25 | CT_ITS ---
WS: [id number] CT ABDOMEN AND PELVIS NONCONTRAST HISTORY: abd pain TECHNIQUE: Imaging performed through the abdomen and pelvis. Coronal and sagittal reformats are submi tted. All CT scans at [facility] use at least one of these dose optimization techniques: auto mated exposure control; mA and/or kV adjustment per patient size (includes targeted exams where dose is matched to clinical indication); or iterative reconstruction. DLP: 651.98 mGy.cm COMPARISON: 09/03/2021 Lower thorax: Hazy opacifications in the lower lung cantu probably related to edema. Suspect very sm all bilateral pleural effusions. Moderate cardiomegaly and small pericardial effusion. Liver: Enlarged liver. Hepatic congestion is likely. Gallbladder: Normal gallbladder. Pancreas: Normal size and attenuation. Normal pancreatic duct. No pancreatitis or mass. Spleen: Normal size spleen. Adrenal glands: Normal. No mass. Right kidney: Severe atrophy. Left kidney: Severe atrophy. Aorta: Mild atherosclerosis abdominal aorta with no aneurysm. Moderate amount of ascites throughout all 4 quadrants. There is soft tissue anasarca and mesenteric e david. GI tract: No GI tract obstruction. Abdominal wall: Soft tissue edema. Pelvis: Fluid free fluid in the pelvis. Minimally distended bladder. Soft tissue anasarca. Enlarged i nguinal lymph nodes. Osseous structures: L5 anterolisthesis by [address] mm. [address]ilateral pars defects. CT/CT abdomen pelvis wo con [id number] IMPRESSION: 1. Moderate amount of ascites throughout all 4 quadrants. 2. Very small bilateral pleural effusions and small pericardial effusion. 3. Cardiomegaly. 4. Hepatomegaly. 5. Severe atrophy of each kidney.
--- NOTE | 2022-03-28 14:28 | W.ED.SOB ---
HPI - SOB/Dyspnea General: Chief Complaint: Shortness of Breath/Dyspnea Stated Complaint: SOB Time Seen by Provider: 03/28/22 13:44 Source: patient and EMS Mode of arrival: EMS Limitations: no limitations History of Present Illness: HPI Narrative: 41-year-old male who has extensive history including on dialysis he states he went to dialysis today had been having abdominal pain shortness of breath and they sent him here he did not receive his dialysis. States his pain is sharp in nature rates it an 8 out of 10 he denies any cough denies any fever denies any worsening proving factors. Associated symptoms: Reports abdominal pain and fever(s); Deny chest pain Review of Systems Const: Reports: fever(s) Eyes: Denies: blurry vision or eye discomfort ENMT: Denies: throat pain or dental pain Card: Denies: chest pain Resp: Reports: dyspnea GI: Reports: abdominal pain : Denies: dysuria Musc: Denies: neck pain or back pain Skin/Breast: Denies: rash Neuro: Denies: headache(s) Psych: Denies: depression [place]/Lymph: Denies: easy bruising All/Imm: Denies: urticaria PFSH ED PFSH: Medical History (HFpEF) heart failure with preserved ejection fraction Abdominal ascites Abdominal distention Abnormality of rib determined by X-ray Acute and chronic respiratory failure with hypoxia Acute diastolic CHF (congestive heart failure) Anasarca Anemia Anxiety with depression Arteriovenous fistula for hemodialysis in place, secondary Ascites Atherosclerosis of coronary artery Chronic abdominal pain Chronic respiratory failure Congestive heart failure COPD (chronic obstructive pulmonary disease) COPD (chronic obstructive pulmonary disease) COVID 05/25 Current smoker Degenerative disc disease, lumbar End-stage renal disease needing dialysis End-stage renal disease on hemodialysis ESRD on dialysis ESRD on dialysis Generalized anxiety disorder with panic attacks GERD without esophagitis Gross hematuria Hemoptysis Hepatomegaly Hyperkalemia Hypertension Hypertensive emergency Ileus PHT (pulmonary hypertension) Pneumonia Pulmonary embolism 09/21 Inconclusive for very tiny peripheral LEFT lower lobe pulmonary artery sub segmental emboli versus poor opacification. Right heart failure with reduced right ventricular function Smoking addiction Transaminitis Urethral stricture Surgical History H/O hand surgery Amputation right 2&3 fingers 2017 History of adenoidectomy Stented coronary artery Family History Father No problems noted. Other Hypertension Social History Smoking and tobacco status: current every day smoker cigarettes Packs smoked per day: 1.5 Years cigarettes smoked: 21 [ Other cigarette details: started age 20, currently 0.5ppd ] Alcohol intake: never Marital status: Number of children: 3 Current occupational status: disabled History of recent travel: No Physical Exam Const: COMMON NORMALS: patient oriented x3 GENERAL APPEARANCE: ill appearing HENMT: COMMON NORMALS: normocephalic and atraumatic HEAD & SCALP: normocephalic and atraumatic Eye: COMMON NORMALS: Equal, round and reactive pupils present and EOMs intact bilaterally PUPIL: Yes Equal, round and reactive pupils present Neck/C-Spine: COMMON NORMALS: full ROM and supple Chest: COMMONS NORMALS: normal inspection of the chest and normal palpation of entire chest wall Resp: COMMON NORMALS: normal respiratory effort, No retractions, No use of accessory muscles and clear to auscultation bilaterally AUSCULTATION: clear to auscultation bilaterally Cardio: COMMON NORMALS: regular rate, regular rhythm and No murmurs present (Cardio) RATE: regular rate RHYTHM: regular rhythm GI: COMMON NORMALS: Normal to inspection, nondistended, normoactive bowel sounds present, Soft to palpation and no masses PALPATION: Yes Soft to palpation OTHER: diffuse tenderness Extremity: COMMON NORMALS: normal to inspection and full ROM Neuro: COMMON NORMALS: patient oriented x3, moves all extremities and no focal motor deficits Psych: COMMON NORMALS: mental status grossly normal, Normal thought process present and cooperative THOUGHT PROCESS: Normal thought process present Skin: COMMON NORMALS: no rashes or lesions noted and no wounds GENERAL SKIN EXAM: no rashes or lesions noted Course Vital Signs: Vital signs: Vital Signs Temperature 98.0 F 03/28/22 11:38 Pulse Rate 75 03/28/22 11:38 Respiratory Rate 17 03/28/22 14:10 Blood Pressure 148/92 03/28/22 11:38 Pulse Oximetry 96 03/28/22 14:10 Oxygen Delivery Me thod 03/28/22 11:38 MDM - SOB/Dyspnea Medical Decision Making Patient presents here with dyspnea along with some abdominal pain. He did not receive his dialysis today he is fluid overloaded CT abdomen shows ascites no other findings spoke to hospitalist will admit for dialysis. Lab Data 03/28/22 14:00 03/28/22 14:00 Labs/Radiology: Radiology Impressions Chest X-Ray 03/28/22 13:47 IMPRESSION: No acute findings. Abdomen/Pelvis CT 03/28/22 14:25 IMPRESSION: 1. Moderate amount of ascites throughout all 4 quadrants. 2. Very small bilateral pleural effusions and small pericardial effusion. 3. Cardiomegaly. 4. Hepatomegaly. 5. Severe atrophy of each kidney. Laboratory Results WBC 8.4 10^3/uL (4.0-10.0) 03/28/22 14:00 RBC 3.47 10^6/uL (4.1-5.3) L 03/28/22 14:00 Hgb 9.5 g/dL (11.7-16.6) L 03/28/22 14:00 Hct 30.9 % (42.0-52.0) L 03/28/22 14:00 MCV 89.0 fl (80-94) 03/28/22 14:00 MCH 27.4 pg (28.0-34.0) L 03/28/22 14:00 MCHC 30.7 g/dL (30.0-36.0) 03/28/22 14:00 RDW 22.0 % (12.1-15.1) H 03/28/22 14:00 Plt Count 216 10^3/cmm (130-400) 03/28/22 14:00 MPV 9.4 fL (7.4-10.4) 03/28/22 14:00 Neut % (Auto) 74.6 % 03/28/22 14:00 Lymph % (Auto) 13.5 % 03/28/22 14:00 [place] % (Auto) 7.2 % 03/28/22 14:00 Eos % (Auto) 3.3 % 03/28/22 14:00 Baso % (Auto) 0.2 % 03/28/22 14:00 Neut # (Auto) 6.29 10^3/uL (1.8-7.7) 03/28/22 14:00 Lymph # (Auto) 1.1 10^3/uL (0.8-4.8) 03/28/22 14:00 [place] # (Auto) 0.6 10^3/uL (0.2-0.9) 03/28/22 14:00 Eos # (Auto) 0.3 10^3/uL (0.0-0.8) 03/28/22 14:00 Baso # (Auto) 0.0 10^3/uL (0.0-0.1) 03/28/22 14:00 Nucleated RBC % (auto) 0.7 % 03/28/22 14:00 Nucleated RBCs # 0.1 /100WBC 03/28/22 14:00 Specimen Type Arterial 03/28/22 15:23 Sample Site Radial, right 03/28/22 15:23 ABG pH 7.40 (7.35-7.45) 03/28/22 15:23 ABG pCO2 43.0 mmHg (35-45) 03/28/22 15:23 ABG pO2 92.4 mmHg (80.0-100.0) 03/28/22 15:23 ABG HCO3 26.6 mmol/L (22-26) H 03/28/22 15:23 ABG Base Excess 1.6 mmol/L (-2.0-2.0) 03/28/22 15:23 Alexei Test Pos 03/28/22 15:23 Hematocrit 27.5 % (42-52) L 03/28/22 15:23 O2 Delivery Device Nc 03/28/22 15:23 O2 Liters/Min 2.0 % 03/28/22 15:23 FiO2 28.0 % 03/28/22 15:23 Energy Director ID Monro 03/28/22 15:23 Sodium 133 mmol/L (136-145) L 03/28/22 14:00 Potassium 5.5 mmol/L (3.5-5.1) H 03/28/22 14:00 Chloride 93 mmol/L (98-107) L 03/28/22 14:00 Carbon Dioxide 25 mmol/L (22-29) 03/28/22 14:00 Anion Gap 20.5 (5-19) H 03/28/22 14:00 BUN 76 mg/dL (6-20) H 03/28/22 14:00 Creatinine 9.7 mg/dL (0.7-1.2) H* 03/28/22 14:00 GFR Calculation 6.0 mL/min (90-130) L 03/28/22 14:00 Glucose 81 mg/dL (65-115) 03/28/22 14:00 Calculated Osmolality 298 mOsm/kg (285-295) H 03/28/22 14:00 Calcium 9.7 mg/dL (8.5-10.5) 03/28/22 14:00 Total Bilirubin 0.4 mg/dL (0.15-1.2) 03/28/22 14:00 AST 10 U/L (0-40) 03/28/22 14:00 ALT 11 U/L (0-41) 03/28/22 14:00 Alkaline Phosphatase 103 U/L (40-130) 03/28/22 14:00 NT-Pro-B Natriuret Pep > 40637 pg/mL (0-125) H 03/28/22 14:00 Total Protein 6.5 g/dL (6.6-8.7) L 03/28/22 14:00 Albumin 3.4 g/dL (3.5-5.2) L 03/28/22 14:00 Globulin 3.1 g/dL (1.3-4.6) 03/28/22 14:00 EKG Data EKG 1: I personally reviewed and interpreted this EKG as follows: EKG Interpretation Date: 03/28/22 EKG interpretation time: 11:42 Interpretation: nsr hr [address] or t wave abnormalities qrs 114 qtc 412 Discharge Plan Discharge Patient Disposition: Admitted As Inpatient Admit Provider: Tunde Umana Clinical Impression: End stage renal disease, Fluid overload, Acute respiratory failure with hypoxia Condition: Stable Coding Level of Care Code ED Mechanical Integrity Specialist for Chg Fwd Exam Comprehensive
[2022-03-28 14:47] LABS: Alanine Aminotransferase 11 U/L (0-41); Albumin Level 3.4 g/dL (3.5-5.2); Alkaline Phosphatase 103 U/L (40-130); Anion Gap 20.5 (5-19); Aspartate Amino Transferase 10 U/L (0-40); Blood Urea Nitrogen 76 mg/dL (6-20); Calcium 9.7 mg/dL (8.5-10.5); Carbon Dioxide 25 mmol/L (22-29); Chloride 93 mmol/L (98-107); Globulin 3.1 g/dL (1.3-4.6); Glucose 81 mg/dL (65-115); Osmolality Calculated 298 mOsm/kg (285-295); Potassium 5.5 mmol/L (3.5-5.1); Sodium 133 mmol/L (136-145); Total Bilirubin 0.4 mg/dL (0.15-1.2); Total Protein 6.5 g/dL (6.6-8.7)
[2022-03-28 15:14] LABS: NT Pro B Type Natriuretic Pept > 70000 pg/mL (0-125)
--- NOTE | 2022-03-28 15:34 | PM.HP ---
Providers/Chief Complaint Primary Care Provider: Mal Peres DO Chief Complaint: SOB History of Present Illness Mal Gibbs is a 41 year old male with a past medical history of end-stage renal disease on dialysis, history of diastolic CHF history of fluid overload history of COPD, current smoker, history of hypertensive urgency, history of abdominal ascites status post paracentesis, uses BiPAP at home, who presents [facility] due to shortness of breath. Patient tells me that he was at dialysis he was complaining of increased shortness of breath, no increased oxygen requirements, no chest pain, palpitations. He was sent over from dialysis suite to [facility]. He does report a cough, increased shortness of breath, increased wheezing. Does report increased abdominal distention, no second abdominal pain, no fevers. No sick contacts, recent travel. No calf pain, no calf swelling, no hemoptysis. Currently blood pressure 148/92, pulse 75, respiratory 17: No evidence of respiratory distress, no nasal flaring, no intercostal retractions, does have 2+ pitting edema bilateral extremity, 96% on 3 L hospital stay was called for admission. Review of Systems Card: Denies: chest pain Resp: Reports: dyspnea and non-productive cough GI: Reports: abdominal pain Medications/Allergies Home Medications Medication Instructions Recorded Confirmed Last Taken Type carvedilol 25 mg tablet 25 mg PO BID 30 days #60 tabs 07/25/21 03/20/22 03/20/22 Rx umeclidinium 62.5 mcg/actuation 1 inh inhalation DAILY #30 ea 08/06/21 03/20/22 03/20/22 Rx blister powder for inhalation (Incruse Ellipta) isosorbide mononitrate 60 mg 60 mg PO DAILY 08/12/21 03/20/22 03/20/22 History tablet,extended release 24 hr ferric citrate 210 mg iron tablet 420 mg PO TID 11/03/21 03/20/22 03/20/22 History (Auryxia) lactulose 20 gram/30 mL oral 10 g PO TID PRN Constipation 11/03/21 03/20/22 03/20/22 History solution lisinopril 40 mg tablet 40 mg PO DAILY 11/03/21 03/20/22 03/20/22 History minoxidil 2.5 mg tablet 2.5 mg PO BID 11/22/21 03/20/22 03/20/22 History nitroglycerin 0.4 mg sublingual 0.4 mg sublingual Q5M PRN Chest 12/02/21 03/20/22 03/20/22 Rx tablet Pain #30 tabs clopidogrel 75 mg tablet 75 mg PO DAILY #90 tabs 01/28/22 03/20/22 03/20/22 Rx cyclobenzaprine 10 mg tablet 10 mg PO Q12H PRN muscle spasm #30 02/04/22 03/20/22 03/20/22 Rx tabs rifaximin 550 mg tablet (Xifaxan) 550 mg PO BID #60 tabs 02/04/22 03/20/22 03/20/22 Rx albuterol sulfate 90 mcg/actuation 2 puff inhalation Q6H PRN 02/21/22 03/20/22 03/20/22 History aerosol inhaler Shortness Of Breath Or Wheezing amlodipine 10 mg tablet 10 mg PO BEDTIME 02/21/22 03/20/22 03/20/22 History aspirin 81 mg tablet,delayed 81 mg PO DAILY 02/21/22 03/20/22 03/20/22 History release clonazepam 0.5 mg tablet 0.5 mg PO BEDTIME 02/21/22 03/20/22 03/20/22 History clonidine HCl 0.2 mg tablet 0.2 mg PO TID 02/21/22 03/20/22 03/20/22 History hydralazine 50 mg tablet 50 mg PO TID 02/21/22 03/20/22 03/20/22 History pantoprazole 40 mg tablet,delayed 40 mg PO DAILY 02/21/22 03/20/22 03/20/22 History release quetiapine 25 mg tablet 25 mg PO DAILY 02/21/22 03/20/22 03/20/22 History DME - BIPAP #1 ea 02/25/22 03/20/22 03/20/22 Rx DME - Oxygen #1 ea 02/25/22 03/20/22 03/20/22 Rx vit B,C-folic ac 800 mcg-zinc 12.5 1 tab PO QPM 03/14/22 03/20/22 03/20/22 History mg-selen-D3 2,000 unit-vit E tablet (RenaPlex-D) Allergies Allergy/AdvReac Type Severity Reaction Status Date / Time nifedipine Allergy ALGY-Swell Verified 03/20/22 11:17 Lip/Tongue/Throat PFSH Acute PFSH: Medical History (HFpEF) heart failure with preserved ejection fraction Abdominal ascites Abdominal distention Abnormality of rib determined by X-ray Acute and chronic respiratory failure with hypoxia Acute diastolic CHF (congestive heart failure) Anasarca Anemia Anxiety with depression Arteriovenous fistula for hemodialysis in place, secondary Ascites Atherosclerosis of coronary artery Chronic abdominal pain Chronic respiratory failure Congestive heart failure COPD (chronic obstructive pulmonary disease) COPD (chronic obstructive pulmonary disease) COVID 05/25 Current smoker Degenerative disc disease, lumbar End-stage renal disease needing dialysis End-stage renal disease on hemodialysis ESRD on dialysis ESRD on dialysis Generalized anxiety disorder with panic attacks GERD without esophagitis Gross hematuria Hemoptysis Hepatomegaly Hyperkalemia Hypertension Hypertensive emergency Ileus PHT (pulmonary hypertension) Pneumonia Pulmonary embolism 09/21 Inconclusive for very tiny peripheral LEFT lower lobe pulmonary artery sub segmental emboli versus poor opacification. Right heart failure with reduced right ventricular function Smoking addiction Transaminitis Urethral stricture Surgical History H/O hand surgery Amputation right 2&3 fingers 2017 History of adenoidectomy Stented coronary artery Family History Father No problems noted. Other Hypertension Social History Smoking and tobacco status: current every day smoker cigarettes Packs smoked per day: 1.5 Years cigarettes smoked: 21 [ Other cigarette details: started age 20, currently 0.5ppd ] Alcohol intake: never Marital status: Number of children: 3 Current occupational status: disabled History of recent travel: No Vitals/I&O/Wt Last Vital Signs Temp 98.0 F 03/28/22 11:38 Pulse 75 03/28/22 11:38 Resp 17 03/28/22 14:10 BP 148/92 03/28/22 11:38 Pulse Ox 96 03/28/22 14:10 O2 Del Method 03/28/22 11:38 Weight last 48 hrs Weight 77.111 kg Physical Exam Const: COMMON NORMALS: no acute distress and patient oriented x3 HENMT: COMMON NORMALS: normocephalic HEAD & SCALP: normocephalic Eye: COMMON NORMALS: Equal, round and reactive pupils present and EOMs intact bilaterally Neck/C-Spine: COMMON NORMALS: no JVD Resp: COMMON NORMALS: normal respiratory effort, No retractions, No use of accessory muscles and clear to auscultation bilaterally AUSCULTATION: crackles Cardio: COMMON NORMALS: regular rate, regular rhythm, S1 normal heart sound present and S2 normal heart sound present RATE: regular rate RHYTHM: regular rhythm HEART SOUNDS: S1 normal heart sound present and S2 normal heart sound present GI: COMMON NORMALS: Soft to palpation INSPECTION: Yes Abdominal wall edema and Yes abdominal distension AUSCULTATION: Yes normoactive bowel sounds PALPATION: Yes Soft to palpation and Yes No hepatosplenomegaly present Extremity: COMMON NORMALS: capillary refill normal and no calf tenderness NARRATIVE EXTREMITY EXAM: 1+ pitting edema bilaterally Neuro: COMMON NORMALS: patient oriented x3, CN's II-XII intact bilaterally and moves all extremities Psych: COMMON NORMALS: mental status grossly normal Data 03/28/22 14:00 03/28/22 14:00 A&P Assessment and plan (1) ESRD (end stage renal disease): (2) CKD (chronic kidney disease) stage 5, GFR less than 15 ml/min: (3) COPD (chronic obstructive pulmonary disease): (4) Hypertension: (5) CHF exacerbation: (6) Fluid overload: (7) Acute respiratory failure with hypoxia: Plan Acute hypoxic respiratory failure -Likely secondary to CHF diastolic exacerbation, fluid overload -Some component COPD exacerbation -Possible respiratory tract infection Plan -Currently on 4 L, resting comfortably, no evidence of respiratory distress, no hemodynamic compromise no hypertensive emergency, following all commands -Admit to general medical floors -Consult nephrology, for dialysis as inpatient -Solu-Medrol, budesonide, ipratropium, doxycycline for antibiotic coverage -Follow troponins, serial EKGs serial troponins telemetry monitoring CRP, Pro-Lonny, blood cultures, flu, COVID -Monitor respiratory status closely -Kidneys BiPAP as needed during the day, scheduled during the night -Full code -Heparin for DVT prophylaxis Hypertension continue home medications End-stage renal disease on dialysis History of hypertensive emergency, monitor, currently normotensive Heart failure with preserved ejection fraction History of ascites, currently with abdominal distention, ascites present on CT scan -No significant abdominal tenderness no leukocytosis -Will require paracentesis at some point -We will see how he does after dialysis Attestations Medical Necessity Statement*: Patient requires hospitalization for fluid overload, acute hypoxic respiratory failure, end-stage renal disease requiring dialysis Coding Level of Care Code Acute Post Acute Care Nurse for Chg Fwd Diagnoses ESRD (end stage renal disease) N18.6 CKD (chronic kidney disease) stage 5, GFR less than 15 ml/min N18.5 COPD (chronic obstructive pulmonary disease) J44.9 Hypertension I10 CHF exacerbation I50.9 Fluid overload E87.70 Acute respiratory failure with hypoxia J96.01
[2022-03-28 15:39] LABS: Arterial Blood Gas Hematocrit 27.5 % (42-52); Base Excess ABG 1.6 mmol/L (-2.0-2.0); Blood Gas Allen Test Pos; Blood Gas Operator Identificat MONRO; Blood Gas Sample Site Radial, right; Blood Gas Sample Type Arterial; HCO3 ABG 26.6 mmol/L (22-26); Oxygen Device NC; PO2 ABG 92.4 mmHg (80.0-100.0)
--- NOTE | 2022-03-28 15:43 | PM.CONSULT ---
Providers/Reason For Consult Consulting Physician/Specialty*: Imani Seo DO, telenephrology Reason for Consult*: ESRD, volume overload Requesting Physician: Tunde Umana MD Primary Care Provider: Mal Peres DO History of Present Illness History of Present Illness Mal Gibbs is a 41 year old male was sent to ER from dialysis with CC of shortness of breath. He did not receive dialysis. Medications/Allergies Home Medications Medication Instructions Recorded Confirmed Last Taken Type carvedilol 25 mg tablet 25 mg PO BID 30 days #60 tabs 07/25/21 03/20/22 03/20/22 Rx umeclidinium 62.5 mcg/actuation 1 inh inhalation DAILY #30 ea 08/06/21 03/20/22 03/20/22 Rx blister powder for inhalation (Incruse Ellipta) isosorbide mononitrate 60 mg 60 mg PO DAILY 08/12/21 03/20/22 03/20/22 History tablet,extended release 24 hr ferric citrate 210 mg iron tablet 420 mg PO TID 11/03/21 03/20/22 03/20/22 History (Auryxia) lactulose 20 gram/30 mL oral 10 g PO TID PRN Constipation 11/03/21 03/20/22 03/20/22 History solution lisinopril 40 mg tablet 40 mg PO DAILY 11/03/21 03/20/22 03/20/22 History minoxidil 2.5 mg tablet 2.5 mg PO BID 11/22/21 03/20/22 03/20/22 History nitroglycerin 0.4 mg sublingual 0.4 mg sublingual Q5M PRN Chest 12/02/21 03/20/22 03/20/22 Rx tablet Pain #30 tabs clopidogrel 75 mg tablet 75 mg PO DAILY #90 tabs 01/28/22 03/20/22 03/20/22 Rx cyclobenzaprine 10 mg tablet 10 mg PO Q12H PRN muscle spasm #30 02/04/22 03/20/22 03/20/22 Rx tabs rifaximin 550 mg tablet (Xifaxan) 550 mg PO BID #60 tabs 02/04/22 03/20/22 03/20/22 Rx albuterol sulfate 90 mcg/actuation 2 puff inhalation Q6H PRN 02/21/22 03/20/22 03/20/22 History aerosol inhaler Shortness Of Breath Or Wheezing amlodipine 10 mg tablet 10 mg PO BEDTIME 02/21/22 03/20/22 03/20/22 History aspirin 81 mg tablet,delayed 81 mg PO DAILY 02/21/22 03/20/22 03/20/22 History release clonazepam 0.5 mg tablet 0.5 mg PO BEDTIME 02/21/22 03/20/22 03/20/22 History clonidine HCl 0.2 mg tablet 0.2 mg PO TID 02/21/22 03/20/22 03/20/22 History hydralazine 50 mg tablet 50 mg PO TID 02/21/22 03/20/22 03/20/22 History pantoprazole 40 mg tablet,delayed 40 mg PO DAILY 02/21/22 03/20/22 03/20/22 History release quetiapine 25 mg tablet 25 mg PO DAILY 02/21/22 03/20/22 03/20/22 History DME - BIPAP #1 ea 02/25/22 03/20/22 03/20/22 Rx DME - Oxygen #1 ea 02/25/22 03/20/22 03/20/22 Rx vit B,C-folic ac 800 mcg-zinc 12.5 1 tab PO QPM 03/14/22 03/20/22 03/20/22 History mg-selen-D3 2,000 unit-vit E tablet (RenaPlex-D) Allergies Allergy/AdvReac Type Severity Reaction Status Date / Time nifedipine Allergy ALGY-Swell Verified 03/28/22 15:48 Lip/Tongue/Throat PFSH Acute PFSH: Medical History (HFpEF) heart failure with preserved ejection fraction Abdominal ascites Abdominal distention Abnormality of rib determined by X-ray Acute and chronic respiratory failure with hypoxia Acute diastolic CHF (congestive heart failure) Anasarca Anemia Anxiety with depression Arteriovenous fistula for hemodialysis in place, secondary Ascites Atherosclerosis of coronary artery Chronic abdominal pain Chronic respiratory failure Congestive heart failure COPD (chronic obstructive pulmonary disease) COPD (chronic obstructive pulmonary disease) COVID 05/25 Current smoker Degenerative disc disease, lumbar End-stage renal disease needing dialysis End-stage renal disease on hemodialysis ESRD on dialysis ESRD on dialysis Generalized anxiety disorder with panic attacks GERD without esophagitis Gross hematuria Hemoptysis Hepatomegaly Hyperkalemia Hypertension Hypertensive emergency Ileus PHT (pulmonary hypertension) Pneumonia Pulmonary embolism 09/21 Inconclusive for very tiny peripheral LEFT lower lobe pulmonary artery sub segmental emboli versus poor opacification. Right heart failure with reduced right ventricular function Smoking addiction Transaminitis Urethral stricture Surgical History H/O hand surgery Amputation right 2&3 fingers 2017 History of adenoidectomy Stented coronary artery Family History Father No problems noted. Other Hypertension Social History Smoking and tobacco status: current every day smoker cigarettes Packs smoked per day: 1.5 Years cigarettes smoked: 21 [ Other cigarette details: started age 20, currently 0.5ppd ] Alcohol intake: never Marital status: Number of children: 3 Current occupational status: disabled History of recent travel: No Vitals/I&O/Wt Last Vital Signs Temp 98.0 F 03/28/22 11:38 Pulse 75 03/28/22 11:38 Resp 17 03/28/22 14:10 BP 148/92 03/28/22 11:38 Pulse Ox 96 03/28/22 14:10 O2 Del Method 03/28/22 11:38 RA Weight last 48 hrs Weight 77.111 kg Data 03/28/22 14:00 03/28/22 14:00 Other Labs: Ca 9.7, LFT normal, proBNP > 70,000 CT Abd/Pel: Radiologist's impression: 1. Moderate amount of ascites throughout all 4 quadrants. 2.? Very small bilateral pleural effusions and small pericardial effusion. 3.? Cardiomegaly. 4.? Hepatomegaly. 5.? Severe atrophy of each kidney. CXR: Radiologist's impression: No acute findings A&P Assessment and plan (1) End stage renal disease: seen via telemedicine with assistance of RN at bedside Plan 1. ESRD 2. Volume overload 3. Anemia 4. Hyperkalemia 5. Hypertension Plan: HD today, Consult Attestations Medical Necessity Statement: per primary service Coding Level of Care Code Acute Lithographers Printer for Cristi Diane Diagnoses End stage renal disease N18.6
[2022-03-28 15:53] LABS: Troponin(5th) Baseline 70 ng/L (0-15)
[2022-03-28 15:59] LABS: C Reactive Protein 9.1 mg/L (0.0-4.9)
[2022-03-28 16:18] LABS: Troponin 5 2HR 69.58 ng/L (0-15)
[2022-03-28 16:19] LABS: Troponin 5 2HR Delta -0.42 ABS# (0-10)
--- NOTE | 2022-03-28 16:36 | ECG_ITS ---
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 Measurements Intervals [place] Rate: 58 P: 48 [place]: 204 QRS: 63 QRSD: 109 T: 84 QT: 424 QTc: 420 Interpretive Statements SINUS BRADYCARDIA Compared to ECG 03/28/2022 13:52:11 Sinus rhythm no longer present Electronically Signed On 03-29-2022 11:01:49 FINANCE INTERN by Brijesh King M.D. [id number]
[2022-03-28 16:38] LABS: Influenza A by IFA negative (Negative); Influenza B by IFA negative (Negative); SARS Covid-2 Antigen negative (Negative)
[2022-03-28 16:40] LABS: Hepatitis B Surface Antigen Non-Reactive (Nonreactive); Hepatitis C Virus Antibody Non-Reactive (Nonreactive)
--- NOTE | 2022-03-28 17:17 | ECG_ITS ---
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 Measurements Intervals [place] Rate: 60 P: 38 CT: 197 QRS: 62 QRSD: 113 T: 84 QT: 430 QTc: 431 Interpretive Statements SINUS RHYTHM MODERATE INTRAVENTRICULAR CONDUCTION DELAY [110+ ms QRS DURATION] Compared to ECG 03/28/2022 16:36:19 Intraventricular conduction delay now present Sinus bradycardia no longer present Electronically Signed On 03-29-2022 11:10:09 WEDGER MACHINE by Brijesh King M.D. [id number]
[2022-03-28] MEDS: morphine 4 mg/mL SDV 1 mL 1 MG IVP (17:37)
[2022-03-28] MEDS: heparin 5,000 unit/mL INJ 1 mL 5000 UNIT SUBCUT (17:37)
[2022-03-28] MEDS: carvedilol 25 mg Tablet PO (17:38)
[2022-03-28] MEDS: doxycycline 100 MG in sodium chloride 0.9% (plus) 100 ML IV (17:39)
[2022-03-28] MEDS: minoxidil 10 mg Tablet 2.5 MG PO (17:51)
[2022-03-28 18:21] LABS: Lactic Sepsis W/Reflex 0.6 mmol/L (0.5-2.2)
[2022-03-28 20:26] LABS: Troponin 5 6HR 66.64 ng/L (0-15)
[2022-03-28 20:28] LABS: Troponin 5 6HR Delta -3.36 ng/L (0-12)
--- NOTE | 2022-03-28 21:18 | ECG_ITS ---
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 Measurements Intervals [place] Rate: 76 P: 59 [place]: 190 QRS: 64 QRSD: 112 T: 84 QT: 402 QTc: 454 Interpretive Statements SINUS RHYTHM POSSIBLE LEFT ATRIAL ENLARGEMENT [-0.1mV P-WAVE IN V1/V2] MODERATE INTRAVENTRICULAR CONDUCTION DELAY [110+ ms QRS DURATION] Compared to ECG 03/28/2022 17:17:28 No significant changes Electronically Signed On 03-29-2022 11:07:46 RETAIL FIELD REPRESENTATIVE by Brijesh King M.D. [id number]
--- NOTE | 2022-03-28 21:35 | PC.NURSE ---
Patient is off of unit in dialysis.
[2022-03-28] MEDS: cloNIDine 0.1 mg Tablet 0.2 MG PO (23:49)
[2022-03-28] MEDS: hyDRALAzine 50 mg Tablet PO (23:51)
[2022-03-28] MEDS: amlodipine 10 mg Tablet PO (23:51)
[2022-03-28] MEDS: CLONazepam 0.5 mg Tablet PO (23:52)
--- NOTE | 2022-03-28 23:54 | PC.NURSE ---
Patient is back up to floor from dialysis.
[2022-03-29] VITALS (17 sets, daily range): BP systolic 126–170; BP diastolic 70–90; PULSE 68–79; RESP 14–22; TEMP 36.4–37.1; O2SAT 94–98
--- NOTE | 2022-03-29 00:56 | PC.NURSE ---
Patient was in dialysis. Was not able to retrieve information on intake and output.
[2022-03-29] MEDS: doxycycline 100 MG in sodium chloride 0.9% (plus) 100 ML IV (04:48)
[2022-03-29] MEDS: heparin 5,000 unit/mL INJ 1 mL 5000 UNIT SUBCUT (04:48)
[2022-03-29] MEDS: ondansetron 2 mg/ML SDV 2 mL 4 MG IVP (05:01)
[2022-03-29] MEDS: morphine 4 mg/mL SDV 1 mL 1 MG IVP ×2 (05:01→09:58)
[2022-03-29 05:04] LABS: Hematocrit 32.4 % (42.0-52.0); Hemoglobin 10.2 g/dL (11.7-16.6); Lymphocytes # 0.2 10^3/uL (0.8-4.8); Mean Corpuscular HGB Conc 31.5 g/dL (30.0-36.0); Mean Corpuscular Hemoglobin 27.4 pg (28.0-34.0); Mean Corpuscular Volume 87.1 fl (80-94); Mean Platelet Volume 9.4 fL (7.4-10.4); Monocytes # 0.1 10^3/uL (0.2-0.9); Monocytes % 0.9 %; Neutrophils # 6.22 10^3/uL (1.8-7.7); Neutrophils % 94.9 %; Nucleated Red Blood Cells % 0 %; Platelet Count 217 10^3/cmm (130-400); Red Blood Count 3.72 10^6/uL (4.1-5.3); Red Cell Distribution Width 21.6 % (12.1-15.1); White Blood Count 6.6 10^3/uL (4.0-10.0)
[2022-03-29 05:35] LABS: Anion Gap 13.5 (5-19); Blood Urea Nitrogen 38 mg/dL (6-20); Calcium 9.4 mg/dL (8.5-10.5); Carbon Dioxide 28 mmol/L (22-29); Chloride 92 mmol/L (98-107); Glomerular Filtration Rate 10.1 mL/min (90-130); Glucose 133 mg/dL (65-115); Magnesium 1.8 mg/dL (1.7-2.3); Osmolality Calculated 277 mOsm/kg (285-295); Phosphorus 4.5 mg/dL (2.5-4.5); Potassium 5.5 mmol/L (3.5-5.1); Sodium 128 mmol/L (136-145)
[2022-03-29 06:14] LABS: NT Pro B Type Natriuretic Pept > 70000 pg/mL (0-125)
[2022-03-29] MEDS: budesonide 0.5 mg/2 mL Neb INHALATION (08:00)
[2022-03-29] MEDS: ipratropium-albuterol 3 mL Neb INHALATION ×3 (08:00→15:05)
--- NOTE | 2022-03-29 08:17 | PM.PN ---
Subjective Subjective: feeling better today, less abdominal pain, denies dyspnea Vitals/I&O/Wt Last Vital Signs Temp 97.9 F 03/29/22 04:00 Pulse 74 03/29/22 08:13 Resp 18 03/29/22 08:00 BP 152/83 03/29/22 04:00 Pulse Ox 98 03/29/22 08:00 O2 Del Method 03/29/22 08:00 O2 Flow Rate 2 03/28/22 17:50 FiO2 30 03/29/22 08:00 03/28/22 03/29/22 03/29/22 22:59 06:59 14:59 Intake Total 100 / 100 460 / 560 Balance 100 / 100 460 / 560 Weight last 48 hrs Weight 77.111 kg Physical Exam Const: COMMON NORMALS: no acute distress and alert Neuro: SENSORIUM/ORIENTATION: Yes alert Data 03/29/22 04:43 03/29/22 04:43 Micro: Microbiology 03/28/22 17:48 Blood Culture - Preliminary Blood SPECIMEN COLLECTED 03/28/22 17:45 Blood Culture - Preliminary Blood SPECIMEN COLLECTED A&P Assessment and plan (1) End stage renal disease: seen via telemedicine with assistance of RN at bedside Plan 1. ESRD, HD MWF 2. Volume overload, improved 3. Anemia, Hb stable 4. Hyperkalemia 5. Hypertension Plan: reviewed low K diet. Kayexyalte today. Next HD Thursday Attestations Medical Necessity Statement*: per primary service Time Spent in Patient Care: 16 - 35 minutes Coding Level of Care Code Acute Change House Attendant for Cristi Diane Diagnoses End stage renal disease N18.6
[2022-03-29] MEDS: cloNIDine 0.1 mg Tablet 0.2 MG PO ×2 (09:43→15:00)
[2022-03-29] MEDS: lisinopril 20 mg Tablet 40 MG PO (09:44)
[2022-03-29] MEDS: quetiapine 25 mg Tablet PO (09:44)
[2022-03-29] MEDS: isosorbide mononitrate ER 60 mg Tablet PO (09:44)
[2022-03-29] MEDS: minoxidil 10 mg Tablet 2.5 MG PO (09:45)
[2022-03-29] MEDS: hyDRALAzine 50 mg Tablet PO ×2 (09:45→15:02)
[2022-03-29] MEDS: clopidogrel 75 mg Tablet PO (09:45)
[2022-03-29] MEDS: pantoprazole DR 40 mg Tablet PO (09:45)
[2022-03-29] MEDS: aspirin 81 mg EC Tablet PO (09:45)
[2022-03-29] MEDS: carvedilol 25 mg Tablet PO (09:45)
[2022-03-29] MEDS: sodium polystyrene sulfonate 15 gm/60 mL Btl PO (09:48)
--- NOTE | 2022-03-29 13:36 | PM.DCS ---
Discharge Providers Date of Admission: 03/28/22 15:49 Date of Discharge: March 29, 2022 Attending Provider at Admission: Tunde Umana MD Attending Provider at Discharge: Tiarra Villegas MD Primary Care Provider: Mal Peres DO Diagnoses at Discharge Discharge Diagnosis (1) End stage renal disease: Status: Acute Reason for Visit Reason for Visit: SOB Brief History: Mal Gibbs is a 41 year old male with a past medical history of end-stage renal disease on dialysis, history of diastolic CHF history of fluid overload history of COPD, current smoker, history of hypertensive urgency, history of abdominal ascites status post paracentesis, uses BiPAP at home, who presents [facility] due to shortness of breath.? Hospital Course Hospital Course Patient was admitted to the hospital in view of acute hypoxic respiratory failure secondary to CHF diastolic exacerbation and also some component of COPD exacerbation. Patient underwent dialysis on 03/28/2022 and received treatment additionally with inhaled and IV steroids, inhaled ipratropium and p.o. doxycycline. Rapid flu and COVID antigens were negative. His respiratory symptoms improved after undergoing dialysis. He may need additional paracentesis at CT of his abdomen and pelvis showed moderate amount of ascites, however radiology is not available until Thursday. Patient is okay with scheduling this as outpatient. Since patient is otherwise clinically improved, will discharge him to home today. Recommended to continue BiPAP use at home as he is currently at nighttime. Nephrology was consulted, next dialysis is recommended for Thursday. Which can be performed as outpatient per his regular schedule MW. Physical Exam Narrative: General: No acute distress, AO x3 HEENT: PERRLA, pupils bilaterally equal and reactive, pallors not present Chest: Normal vesicular breath sounds, no added sounds, equal good air entry bilaterally CVS: S1-S2 regular, no murmurs, no tachycardia, no gallops, no rubs Abdomen: Soft, distended, FF+ Neuro: No focal deficits, no facial deformity, AO x3, power 5/5 in all limbs Extremities: no edema, clubbing or cyanosis. Discharge Data Studies Completed and Pending Completed Studies During Hospitalization Category Date Time Status CT abdomen pelvis wo con [id number] Stat Cat Scan 03/28/22 14:25 Completed XR chest 1V portable [id number] Stat Exams 03/28/22 13:47 Completed Pending at discharge Category Date Time Status Blood Culture Routine Lab 03/28/22 17:48 Results Sputum Culture and Gram Stain Stat Lab 03/28/22 15:42 Uncollected Radiology Impressions Chest X-Ray 03/28/22 13:47 IMPRESSION: No acute findings. Abdomen/Pelvis CT 03/28/22 14:25 IMPRESSION: 1. Moderate amount of ascites throughout all 4 quadrants. 2. Very small bilateral pleural effusions and small pericardial effusion. 3. Cardiomegaly. 4. Hepatomegaly. 5. Severe atrophy of each kidney. Laboratory Results WBC 6.6 10^3/uL (4.0-10.0) 03/29/22 04:43 RBC 3.72 10^6/uL (4.1-5.3) L 03/29/22 04:43 Hgb 10.2 g/dL (11.7-16.6) L 03/29/22 04:43 Hct 32.4 % (42.0-52.0) L 03/29/22 04:43 MCV 87.1 fl (80-94) 03/29/22 04:43 MCH 27.4 pg (28.0-34.0) L 03/29/22 04:43 MCHC 31.5 g/dL (30.0-36.0) 03/29/22 04:43 RDW 21.6 % (12.1-15.1) H 03/29/22 04:43 Plt Count 217 10^3/cmm (130-400) 03/29/22 04:43 MPV 9.4 fL (7.4-10.4) 03/29/22 04:43 Neut % (Auto) 94.9 % 03/29/22 04:43 Lymph % (Auto) 3.0 % 03/29/22 04:43 Gage % (Auto) 0.9 % 03/29/22 04:43 Eos % (Auto) 0.0 % 03/29/22 04:43 Baso % (Auto) 0.0 % 03/29/22 04:43 Neut # (Auto) 6.22 10^3/uL (1.8-7.7) 03/29/22 04:43 Lymph # (Auto) 0.2 10^3/uL (0.8-4.8) L 03/29/22 04:43 Gage # (Auto) 0.1 10^3/uL (0.2-0.9) L 03/29/22 04:43 Eos # (Auto) 0.0 10^3/uL (0.0-0.8) 03/29/22 04:43 Baso # (Auto) 0.0 10^3/uL (0.0-0.1) 03/29/22 04:43 Nucleated RBC % (auto) 0 % 03/29/22 04:43 Nucleated RBCs # 0.0 /100WBC 03/29/22 04:43 Specimen Type Arterial 03/28/22 15:23 Sample Site Radial, right 03/28/22 15:23 ABG pH 7.40 (7.35-7.45) 03/28/22 15:23 ABG pCO2 43.0 mmHg (35-45) 03/28/22 15:23 ABG pO2 92.4 mmHg (80.0-100.0) 03/28/22 15:23 ABG HCO3 26.6 mmol/L (22-26) H 03/28/22 15:23 ABG Base Excess 1.6 mmol/L (-2.0-2.0) 03/28/22 15:23 Alexei Test Pos 03/28/22 15:23 Hematocrit 27.5 % (42-52) L 03/28/22 15:23 O2 Delivery Device Nc 03/28/22 15:23 O2 Liters/Min 2.0 % 03/28/22 15:23 FiO2 28.0 % 03/28/22 15:23 Application Integration Engineer ID Monro 03/28/22 15:23 Sodium 128 mmol/L (136-145) L 03/29/22 04:43 Potassium 5.5 mmol/L (3.5-5.1) H 03/29/22 04:43 Chloride 92 mmol/L (98-107) L 03/29/22 04:43 Carbon Dioxide 28 mmol/L (22-29) 03/29/22 04:43 Anion Gap 13.5 (5-19) 03/29/22 04:43 BUN 38 mg/dL (6-20) H 03/29/22 04:43 Creatinine 6.2 mg/dL (0.7-1.2) H* 03/29/22 04:43 GFR Calculation 10.1 mL/min (90-130) L 03/29/22 04:43 Glucose 133 mg/dL (65-115) H 03/29/22 04:43 Calculated Osmolality 277 mOsm/kg (285-295) L 03/29/22 04:43 Lactic Acid 0.6 mmol/L (0.5-2.2) 03/28/22 17:45 Calcium 9.4 mg/dL (8.5-10.5) 03/29/22 04:43 Phosphorus 4.5 mg/dL (2.5-4.5) 03/29/22 04:43 Magnesium 1.8 mg/dL (1.7-2.3) 03/29/22 04:43 Total Bilirubin 0.4 mg/dL (0.15-1.2) 03/28/22 14:00 AST 10 U/L (0-40) 03/28/22 14:00 ALT 11 U/L (0-41) 03/28/22 14:00 Alkaline Phosphatase 103 U/L (40-130) 03/28/22 14:00 Troponin T Baseline 70 ng/L (0-15) H 03/28/22 14:00 Troponin T 120 Minute 69.58 ng/L (0-15) H 03/28/22 15:52 Delta Troponin T -0.42 ABS# (0-10) L 03/28/22 15:52 Troponin T Hi Sens 6Hr 66.64 ng/L (0-15) H 03/28/22 19:55 Troponin T Hi Sens 6Hr Delta -3.36 ng/L (0-12) L 03/28/22 19:55 C-Reactive Protein 9.1 mg/L (0.0-4.9) H 03/28/22 14:00 NT-Pro-B Natriuret Pep > 96859 pg/mL (0-125) H 03/29/22 04:43 Total Protein 6.5 g/dL (6.6-8.7) L 03/28/22 14:00 Albumin 3.4 g/dL (3.5-5.2) L 03/28/22 14:00 Globulin 3.1 g/dL (1.3-4.6) 03/28/22 14:00 Procalcitonin 0.90 ng/mL (0-0.5) H 03/28/22 14:00 Hep Bs Antigen Non-reactive (Nonreactive) 03/28/22 14:00 Hepatitis C Antibody Non-reactive (Nonreactive) 03/28/22 14:00 Influenza Type A Ag negative (Negative) 03/28/22 14:00 Influenza Type B Ag negative (Negative) 03/28/22 14:00 SARS-CoV-2 Ag (Rapid) negative (Negative) 03/28/22 14:[address] Abd/Pel: Radiologist's impression: Radiology Impressions Chest X-Ray 03/28/22 13:47 IMPRESSION: No acute findings. Abdomen/Pelvis CT 03/28/22 14:25 IMPRESSION: 1. Moderate amount of ascites throughout all 4 quadrants. 2. Very small bilateral pleural effusions and small pericardial effusion. 3. Cardiomegaly. 4. Hepatomegaly. 5. Severe atrophy of each kidney. Laboratory Results WBC 6.6 10^3/uL (4.0-10.0) 03/29/22 04:43 RBC 3.72 10^6/uL (4.1-5.3) L 03/29/22 04:43 Hgb 10.2 g/dL (11.7-16.6) L 03/29/22 04:43 Hct 32.4 % (42.0-52.0) L 03/29/22 04:43 MCV 87.1 fl (80-94) 03/29/22 04:43 MCH 27.4 pg (28.0-34.0) L 03/29/22 04:43 MCHC 31.5 g/dL (30.0-36.0) 03/29/22 04:43 RDW 21.6 % (12.1-15.1) H 03/29/22 04:43 Plt Count 217 10^3/cmm (130-400) 03/29/22 04:43 MPV 9.4 fL (7.4-10.4) 03/29/22 04:43 Neut % (Auto) 94.9 % 03/29/22 04:43 Lymph % (Auto) 3.0 % 03/29/22 04:43 Gage % (Auto) 0.9 % 03/29/22 04:43 Eos % (Auto) 0.0 % 03/29/22 04:43 Baso % (Auto) 0.0 % 03/29/22 04:43 Neut # (Auto) 6.22 10^3/uL (1.8-7.7) 03/29/22 04:43 Lymph # (Auto) 0.2 10^3/uL (0.8-4.8) L 03/29/22 04:43 Gage # (Auto) 0.1 10^3/uL (0.2-0.9) L 03/29/22 04:43 Eos # (Auto) 0.0 10^3/uL (0.0-0.8) 03/29/22 04:43 Baso # (Auto) 0.0 10^3/uL (0.0-0.1) 03/29/22 04:43 Nucleated RBC % (auto) 0 % 03/29/22 04:43 Nucleated RBCs # 0.0 /100WBC 03/29/22 04:43 Specimen Type Arterial 03/28/22 15:23 Sample Site Radial, right 03/28/22 15:23 ABG pH 7.40 (7.35-7.45) 03/28/22 15:23 ABG pCO2 43.0 mmHg (35-45) 03/28/22 15:23 ABG pO2 92.4 mmHg (80.0-100.0) 03/28/22 15:23 ABG HCO3 26.6 mmol/L (22-26) H 03/28/22 15:23 ABG Base Excess 1.6 mmol/L (-2.0-2.0) 03/28/22 15:23 Alexei Test Pos 03/28/22 15:23 Hematocrit 27.5 % (42-52) L 03/28/22 15:23 O2 Delivery Device Nc 03/28/22 15:23 O2 Liters/Min 2.0 % 03/28/22 15:23 FiO2 28.0 % 03/28/22 15:23 Application Integration Engineer ID Kasiaro 03/28/22 15:23 Sodium 128 mmol/L (136-145) L 03/29/22 04:43 Potassium 5.5 mmol/L (3.5-5.1) H 03/29/22 04:43 Chloride 92 mmol/L (98-107) L 03/29/22 04:43 Carbon Dioxide 28 mmol/L (22-29) 03/29/22 04:43 Anion Gap 13.5 (5-19) 03/29/22 04:43 BUN 38 mg/dL (6-20) H 03/29/22 04:43 Creatinine 6.2 mg/dL (0.7-1.2) H* 03/29/22 04:43 GFR Calculation 10.1 mL/min (90-130) L 03/29/22 04:43 Glucose 133 mg/dL (65-115) H 03/29/22 04:43 Calculated Osmolality 277 mOsm/kg (285-295) L 03/29/22 04:43 Lactic Acid 0.6 mmol/L (0.5-2.2) 03/28/22 17:45 Calcium 9.4 mg/dL (8.5-10.5) 03/29/22 04:43 Phosphorus 4.5 mg/dL (2.5-4.5) 03/29/22 04:43 Magnesium 1.8 mg/dL (1.7-2.3) 03/29/22 04:43 Total Bilirubin 0.4 mg/dL (0.15-1.2) 03/28/22 14:00 AST 10 U/L (0-40) 03/28/22 14:00 ALT 11 U/L (0-41) 03/28/22 14:00 Alkaline Phosphatase 103 U/L (40-130) 03/28/22 14:00 Troponin T Baseline 70 ng/L (0-15) H 03/28/22 14:00 Troponin T 120 Minute 69.58 ng/L (0-15) H 03/28/22 15:52 Delta Troponin T -0.42 ABS# (0-10) L 03/28/22 15:52 Troponin T Hi Sens 6Hr 66.64 ng/L (0-15) H 03/28/22 19:55 Troponin T Hi Sens 6Hr Delta -3.36 ng/L (0-12) L 03/28/22 19:55 C-Reactive Protein 9.1 mg/L (0.0-4.9) H 03/28/22 14:00 NT-Pro-B Natriuret Pep > 45390 pg/mL (0-125) H 03/29/22 04:43 Total Protein 6.5 g/dL (6.6-8.7) L 03/28/22 14:00 Albumin 3.4 g/dL (3.5-5.2) L 03/28/22 14:00 Globulin 3.1 g/dL (1.3-4.6) 03/28/22 14:00 Procalcitonin 0.90 ng/mL (0-0.5) H 03/28/22 14:00 Hep Bs Antigen Non-reactive (Nonreactive) 03/28/22 14:00 Hepatitis C Antibody Non-reactive (Nonreactive) 03/28/22 14:00 Influenza Type A Ag negative (Negative) 03/28/22 14:00 Influenza Type B Ag negative (Negative) 03/28/22 14:00 SARS-CoV-2 Ag (Rapid) negative (Negative) 03/28/22 14:00 Vitals Last Vital Signs Temp 97.7 F 03/29/22 12:00 Pulse 79 03/29/22 12:00 Resp 16 03/29/22 12:00 BP 170/89 03/29/22 12:00 Pulse Ox 97 03/29/22 12:00 O2 Del Method 03/29/22 12:00 O2 Flow Rate 2 03/28/22 17:50 FiO2 30 03/29/22 11:26 Discharge Plan Discharge Patient Disposition: Home Condition: Stable Prescriptions: New doxycycline hyclate 100 mg capsule 100 mg PO BID 3 Days Qty: 6 0RF prednisone 20 mg tablet 20 mg PO DAILY 5 Days Qty: 5 0RF Continued cyclobenzaprine 10 mg tablet 10 mg PO Q12H PRN (Reason: muscle spasm) Qty: 30 2RF Xifaxan 550 mg tablet 550 mg PO BID Qty: 60 2RF Incruse Ellipta 62.5 mcg/actuation blister with device 1 inh INHALATION DAILY Qty: 30 2RF nitroglycerin 0.4 mg tablet, sublingual 0.4 mg SUBLINGUAL Q5M PRN (Reason: Chest Pain) Qty: 30 5RF Rx Instructions: do not exceed 3 doses per episode clopidogrel 75 mg tablet 75 mg PO DAILY Qty: 90 3RF (DME) DME - BIPAP See Rx Instructions .Route .MEDSUPPLY Qty: 1 0RF Rx Instructions: Inspiratory Pressure: 16mmHg Expiratory Pressure: 8 mmHg Will need oxygen bled in to the machine to maintain sats >/= 90%. (DME) DME - Oxygen See Rx Instructions .Route .MEDSUPPLY Qty: 1 0RF Rx Instructions: Supplemental Oxygen bled into BIPAP at 2-3L to maintain oxygen sats at >/= 90%. carvedilol 25 mg tablet 25 mg PO BID 30 Days Qty: 60 0RF isosorbide mononitrate 60 mg tablet extended release 24 hr 60 mg PO DAILY lisinopril 40 mg Tablet 40 mg PO DAILY lactulose 20 gram/30 mL Solution 10 g PO TID PRN (Reason: Constipation) Auryxia 210 mg iron Tablet 420 mg PO TID Rx Instructions: administer with a meal minoxidil 2.5 mg Tablet 2.5 mg PO BID clonazepam 0.5 mg tablet 0.5 mg PO BEDTIME aspirin 81 mg tablet,delayed release (DR/EC) 81 mg PO DAILY amlodipine 10 mg tablet 10 mg PO BEDTIME pantoprazole 40 mg tablet,delayed release (DR/EC) 40 mg PO DAILY albuterol sulfate 90 mcg/actuation HFA aerosol inhaler 2 puff inhalation Q6H PRN (Reason: Shortness Of Breath Or Wheezing) clonidine HCl 0.2 mg tablet 0.2 mg PO TID hydralazine 50 mg tablet 50 mg PO TID quetiapine 25 mg tablet 25 mg PO DAILY RenaPlex-D 800 mcg-12.5 mg -2,000 unit tablet 1 tab PO QPM Discharge Orders: Discharge Order (Routine); Ordered 03/29/22 Ordered By: Tiarra Villegas Other Ambulatory Orders: paracentesis jean bates [id number] (Routine) Timeframe: 20220331 Facility: [facility] - Location: Radiology Ordered By: Tiarra Villegas Referrals: Mal Peres DO [Primary Care Provider] - Patient Instructions: Opioid Safety Discharge Attestations Time Spent in Discharge Care*: less than 30 min Status at Discharge: Cognitive status at discharge: cognitively intact, Behavioral status at discharge: cooperative, Quality Metrics Clinical Quality Measures [ No reported AMI, CVA or VTE this stay] Coding Level of Care Code Acute Chg FW DC note Diagnoses End stage renal disease N18.6
--- NOTE | 2022-03-30 15:44 | PC.HD ---
Tx completed without incident. Pt dyspneic pre-treatment, unlabored post treatment, tolerated tx well.
== END 2022-03-29 18:14 | disposition home or self-care (01) | DRG 291 ==
LOC: ER 15:34 → MEDSURG 15:49
PROVIDERS: Internal Medicine; Admitting Provider Family Medicine; Emergency Provider Emergency Medicine; PCP Family Medicine; Visit Provider Student in an Organized Health Care Education/Training Program
DX: I13.2 Hypertensive heart and chronic kidney disease with heart failure and with stage 5 chronic kidney disease, or end stage renal disease (principal); I50.33 Acute on chronic diastolic (congestive) heart failure; N18.6 End stage renal disease; J44.1 Chronic obstructive pulmonary disease with (acute) exacerbation; R18.8 Other ascites; Z99.2 Dependence on renal dialysis; F17.210 Nicotine dependence, cigarettes, uncomplicated; Z99.89 Dependence on other enabling machines and devices; D63.1 Anemia in chronic kidney disease; F41.8 Other specified anxiety disorders; I25.10 Atherosclerotic heart disease of native coronary artery without angina pectoris; Z95.5 Presence of coronary angioplasty implant and graft; Z86.16 Personal history of COVID-19; I27.20 Pulmonary hypertension, unspecified; Z87.01 Personal history of pneumonia (recurrent); Z86.711 Personal history of pulmonary embolism; Z79.51 Long term (current) use of inhaled steroids; Z79.82 Long term (current) use of aspirin; Z79.02 Long term (current) use of antithrombotics/antiplatelets
CPT/HCPCS: 36415; 36600; 71045; 74176; 80048; 80053; 82803; 83605; 83735; 83880; 84100; 84145; 84484; 85025; 86140; 86803; 87040; 87340; 87426; 87804; 93005; 94640; 94660; 94664; 94762; 96361; 96372; 96374; 96375; 99285; J1644; J2270; J2405; J2920; J2930; J3490; J7626; Q3014

== ENCOUNTER 2022-04-03 12:12 | Day surgery (SDC) | payer MEDICARE, MEDICAID, SELFPAY ==
[2022-04-02 08:15] VITALS: BMI 23.2
[2022-04-03 12:20] VITALS: BP 183/115; PULSE 77; RESP 18; TEMP 36.7; O2SAT 96
--- NOTE | 2022-04-03 12:20 | US_ITS ---
WS: [id number] ULTRASOUND-GUIDED THERAPEUTIC PARACENTESIS Procedure, risks, and complications have been explained to the patient. Consent is obtained. Utilizing aseptic technique and 1% buffered lidocaine, a small dermatome was made through which a 5 F rench Yueh catheter was inserted. Approximately 3250 ml of clear peritoneal fluid was obtained witho ut difficulty. No complications encountered. US/US paracentesis abd w [id number] IMPRESSION: Uncomplicated paracentesis yielding 3250 ml of peritoneal fluid.
[2022-04-03 13:42] VITALS: BP 152/96; PULSE 72; RESP 16; O2SAT 96
== END 2022-04-03 13:49 | disposition home or self-care (01) ==
LOC: GILAB 12:14
PROVIDERS: Radiology Diagnostic Radiology; PCP Family Medicine; Visit Provider Registered Nurse
PROC: (CPT 49082; principal; 2022-04-03 12:00)
DX: R18.8 Other ascites (principal)
CPT/HCPCS: 49083; 76705; 96365; P9047

== ENCOUNTER 2022-04-07 21:18 | Emergency (ER) | payer MEDICARE, MEDICAID, SELFPAY ==
[2022-04-07 21:30] VITALS: BP 173/88; PULSE 86; RESP 20; TEMP 37.2; O2SAT 96; BMI 24.2
--- NOTE | 2022-04-07 22:31 | ED_ITS ---
HPI - General Adult General: Chief complaint: General Medical Stated complaint: back pain Time Seen by Provider: 04/07/22 22:28 Source: patient Mode of arrival: ambulatory Limitations: no limitations History of Present Illness: 41-year-old male is very well-known to the ER has a history of end-stage renal disease states has been having some left lower back pain over the last day he does have a history of some chronic back pain states pain is worse with movement and palpation improved with rest he denies any vomiting denies any diarrhea has had no fevers states he does have a chronic abdominal hernia as well. Had some mild pain around the hernia. Associated symptoms: Deny chest pain, dyspnea, headache(s) or rash Review of Systems Const: Denies: fever(s), chills, body aches or change in appetite Eyes: Denies: blurry vision or eye discomfort ENMT: Denies: throat pain or dental pain Card: Denies: chest pain Resp: Denies: dyspnea GI: Reports: abdominal pain : Denies: dysuria Musc: Reports: back pain Skin/Breast: Denies: rash Neuro: Denies: headache(s) Psych: Denies: depression Jefferson/Lymph: Denies: easy bruising All/Imm: Denies: urticaria PFSH ED PFSH: Medical History (HFpEF) heart failure with preserved ejection fraction Abdominal ascites Abdominal distention Abnormality of rib determined by X-ray Acute and chronic respiratory failure with hypoxia Acute diastolic CHF (congestive heart failure) Anasarca Anemia Anxiety with depression Arteriovenous fistula for hemodialysis in place, secondary Ascites Atherosclerosis of coronary artery Chronic abdominal pain Chronic respiratory failure CKD (chronic kidney disease) stage 5, GFR less than 15 ml/min Congestive heart failure COPD (chronic obstructive pulmonary disease) COPD (chronic obstructive pulmonary disease) COPD (chronic obstructive pulmonary disease) COVID 05/25 Current smoker Degenerative disc disease, lumbar End stage renal disease End-stage renal disease needing dialysis End-stage renal disease on hemodialysis ESRD (end stage renal disease) ESRD on dialysis ESRD on dialysis Generalized anxiety disorder with panic attacks GERD without esophagitis Gross hematuria Hemoptysis Hepatomegaly Hyperkalemia Hypertension Hypertensive emergency Ileus PHT (pulmonary hypertension) Pneumonia Pulmonary embolism 09/21 Inconclusive for very tiny peripheral LEFT lower lobe pulmonary artery sub segmental emboli versus poor opacification. Right heart failure with reduced right ventricular function Smoking addiction Transaminitis Urethral stricture Surgical History H/O hand surgery Amputation right 2&3 fingers 2017 History of adenoidectomy Stented coronary artery Family History Father No problems noted. Other Hypertension Social History Smoking and tobacco status: current every day smoker cigarettes Packs smoked per day: 1.5 Years cigarettes smoked: 21 [ Other cigarette details: started age 20, currently 0.5ppd ] Alcohol intake: never Marital status: Number of children: 3 Current occupational status: disabled History of recent travel: No Physical Exam Const: COMMON NORMALS: no acute distress and patient oriented x3 HENMT: COMMON NORMALS: normocephalic and atraumatic HEAD & SCALP: normocephalic and atraumatic Eye: COMMON NORMALS: Equal, round and reactive pupils present and EOMs intact bilaterally PUPIL: Yes Equal, round and reactive pupils present Neck/C-Spine: COMMON NORMALS: full ROM and supple Chest: COMMONS NORMALS: normal inspection of the chest and normal palpation of entire chest wall Resp: COMMON NORMALS: normal respiratory effort, No retractions, No use of accessory muscles and clear to auscultation bilaterally AUSCULTATION: clear to auscultation bilaterally Cardio: COMMON NORMALS: regular rate, regular rhythm and No murmurs present (Cardio) RATE: regular rate RHYTHM: regular rhythm GI: COMMON NORMALS: Normal to inspection, nondistended, normoactive bowel sounds present, Soft to palpation, non-tender and no masses PALPATION: Yes Soft to palpation OTHER: Umbilical hernia noted very easily reduced no tenderness Back/Pelvis: OTHER: Point tender over left lower back Extremity: COMMON NORMALS: normal to inspection and full ROM Neuro: COMMON NORMALS: patient oriented x3, moves all extremities and no focal motor deficits Psych: COMMON NORMALS: mental status grossly normal, Normal thought process present and cooperative THOUGHT PROCESS: Normal thought process present Skin: COMMON NORMALS: no rashes or lesions noted and no wounds GENERAL SKIN EXAM: no rashes or lesions noted Course Vital Signs: Vital signs: Vital Signs Temperature 99.0 F 04/07/22 21:30 Pulse Rate 86 04/07/22 21:30 Respiratory Rate 16 04/07/22 22:44 Blood Pressure 173/88 04/07/22 21:30 Pulse Oximetry 99 04/07/22 22:44 Oxygen Delivery Me thod 04/07/22 21:30 MDM - General Adult Medical Decision Making Patient presents here with back pain is likely muscular in nature he is point tender over left lower back he has no signs of any kidney infection or kidney stone does have an umbilical hernia that is easily reduced no signs of strangulation he is otherwise at his baseline we will give him pain meds he is to follow-up with PCP and return if worsening he understands agrees to plan. Discharge Plan Discharge Patient Disposition: Home Clinical Impression: Low back pain, Hernia, umbilical Condition: Stable Prescriptions: No Action cyclobenzaprine 10 mg tablet 10 mg PO Q12H PRN (Reason: muscle spasm) Qty: 30 2RF Xifaxan 550 mg tablet 550 mg PO BID Qty: 60 2RF Incruse Ellipta 62.5 mcg/actuation blister with device 1 inh INHALATION DAILY Qty: 30 2RF nitroglycerin 0.4 mg tablet, sublingual 0.4 mg SUBLINGUAL Q5M PRN (Reason: Chest Pain) Qty: 30 5RF Rx Instructions: do not exceed 3 doses per episode clopidogrel 75 mg tablet 75 mg PO DAILY Qty: 90 3RF (DME) DME - BIPAP See Rx Instructions .Route .MEDSUPPLY Qty: 1 0RF Rx Instructions: Inspiratory Pressure: 16mmHg Expiratory Pressure: 8 mmHg Will need oxygen bled in to the machine to maintain sats >/= 90%. (DME) DME - Oxygen See Rx Instructions .Route .MEDSUPPLY Qty: 1 0RF Rx Instructions: Supplemental Oxygen bled into BIPAP at 2-3L to maintain oxygen sats at >/= 90%. carvedilol 25 mg tablet 25 mg PO BID 30 Days Qty: 60 0RF isosorbide mononitrate 60 mg tablet extended release 24 hr 60 mg PO DAILY lisinopril 40 mg Tablet 40 mg PO DAILY lactulose 20 gram/30 mL Solution 10 g PO TID PRN (Reason: Constipation) Auryxia 210 mg iron Tablet 420 mg PO TID Rx Instructions: administer with a meal minoxidil 2.5 mg Tablet 2.5 mg PO BID clonazepam 0.5 mg tablet 0.5 mg PO BEDTIME aspirin 81 mg tablet,delayed release (DR/EC) 81 mg PO DAILY amlodipine 10 mg tablet 10 mg PO BEDTIME pantoprazole 40 mg tablet,delayed release (DR/EC) 40 mg PO DAILY albuterol sulfate 90 mcg/actuation HFA aerosol inhaler 2 puff inhalation Q6H PRN (Reason: Shortness Of Breath Or Wheezing) clonidine HCl 0.2 mg tablet 0.2 mg PO TID hydralazine 50 mg tablet 50 mg PO TID quetiapine 25 mg tablet 25 mg PO DAILY RenaPlex-D 800 mcg-12.5 mg -2,000 unit tablet 1 tab PO QPM doxycycline hyclate 100 mg capsule 100 mg PO DAILY Discharge Orders: Discharge ED (Routine); Ordered 04/07/22 Ordered By: Dayana Nunez Referrals: Mal Peres DO [Primary Care Provider] - 1-3 days Discharge Diet: Advance as tolerated Discharge Activity: Resume usual activity Patient Instructions: Back Pain (ED) Coding Level of Care Code ED Circular Knife Cutter Machine for Cristi Diane
[2022-04-07] MEDS: morphine 4 mg/mL SDV 1 mL IM (22:41)
[2022-04-07 22:44] VITALS: RESP 16; O2SAT 99
== END 2022-04-07 22:45 | disposition home or self-care (01) ==
PROVIDERS: Emergency Provider Emergency Medicine; PCP Family Medicine
DX: M54.50 Low back pain, unspecified (principal); K42.9 Umbilical hernia without obstruction or gangrene; Z79.02 Long term (current) use of antithrombotics/antiplatelets; Z79.82 Long term (current) use of aspirin; F17.210 Nicotine dependence, cigarettes, uncomplicated; I13.2 Hypertensive heart and chronic kidney disease with heart failure and with stage 5 chronic kidney disease, or end stage renal disease; N18.6 End stage renal disease; I50.31 Acute diastolic (congestive) heart failure; Z99.2 Dependence on renal dialysis; I25.10 Atherosclerotic heart disease of native coronary artery without angina pectoris; J44.9 Chronic obstructive pulmonary disease, unspecified
CPT/HCPCS: 96372; 99284; J2270

== ENCOUNTER 2022-04-11 04:34 | Emergency (ER) | payer MEDICARE, MEDICAID, SELFPAY ==
--- NOTE | 2022-04-11 04:37 | ECG_ITS ---
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 Measurements Intervals [place] Rate: 84 P: 61 VA: 189 QRS: 49 QRSD: 101 T: 84 QT: 386 QTc: 457 Interpretive Statements SINUS RHYTHM POSSIBLE LEFT ATRIAL ENLARGEMENT [-0.1mV P-WAVE IN V1/V2] Compared to ECG 03/28/2022 23:57:18 Intraventricular conduction delay no longer present Electronically Signed On 04-11-2022 13:08:33 LAND SURVEYOR MANAGER by Rosalia Dia M.D. [id number]
--- NOTE | 2022-04-11 04:37 | XRR_ITS ---
PROCEDURE INFORMATION: Exam: XR Chest Exam date and time: 04/11/2022 4:53 AM Age: 41 years old Clinical indication: Chest pressure; Patient HX: C/O chest pain with SOB. ; Additional info: Cp TECHNIQUE: Imaging protocol: Radiologic exam of the chest. Views: 1 view. COMPARISON: CR (CHEST, ) 03/28/2022 2:54 PM FINDINGS: Lungs: Moderate diffuse COPD. Diffuse chronic interstitial lung scarring again seen. No new consolidation or other change. Pleural spaces: Unremarkable. No pleural effusion. No pneumothorax. Heart/Mediastinum: The heart remains enlarged. Diffuse vascular calcification. Bones/joints: A few old right rib deformities. XR/XR chest 1V portable [id number] IMPRESSION: Stable chest with chronic findings but no significant change from 03/28/2022.
[2022-04-11 04:39] VITALS: BP 206/116; PULSE 87; RESP 24; TEMP 36.4; O2SAT 92; BMI 23.7
--- NOTE | 2022-04-11 04:45 | W.ED.SOB ---
HPI - SOB/Dyspnea General: Chief Complaint: Shortness of Breath/Dyspnea Stated Complaint: SOB, cp Time Seen by Provider: 04/11/22 04:42 Source: patient Mode of arrival: ambulatory Limitations: no limitations History of Present Illness: HPI Narrative: 41-year-old male is very well-known to the ER has extensive history of coronary artery disease end-stage renal disease on dialysis uncontrolled hypertension patient gets dialysis Thursday states he did go Thursday he states that he has had increasing shortness of breath throughout the night. He is also been having chest pain that sharp in nature. He denies any worsening proving factors denies any vomiting. Associated symptoms: Reports chest pain; Deny abdominal pain, fever(s), nausea or vomiting Review of Systems Const: Denies: fever(s), chills, body aches or change in appetite Eyes: Denies: blurry vision or eye discomfort ENMT: Denies: throat pain or dental pain Card: Reports: chest pain Resp: Reports: dyspnea GI: Denies: abdominal pain, nausea, vomiting or diarrhea : Denies: dysuria Musc: Denies: neck pain or back pain Skin/Breast: Denies: rash Neuro: Denies: headache(s) Psych: Denies: depression [place]/Lymph: Denies: easy bruising All/Imm: Denies: urticaria PFSH ED PFSH: Medical History (HFpEF) heart failure with preserved ejection fraction Abdominal ascites Abdominal distention Abnormality of rib determined by X-ray Acute and chronic respiratory failure with hypoxia Acute diastolic CHF (congestive heart failure) Anasarca Anemia Anxiety with depression Arteriovenous fistula for hemodialysis in place, secondary Ascites Atherosclerosis of coronary artery Chronic abdominal pain Chronic respiratory failure CKD (chronic kidney disease) stage 5, GFR less than 15 ml/min Congestive heart failure COPD (chronic obstructive pulmonary disease) COPD (chronic obstructive pulmonary disease) COPD (chronic obstructive pulmonary disease) COVID 05/25 Current smoker Degenerative disc disease, lumbar End stage renal disease End-stage renal disease needing dialysis End-stage renal disease on hemodialysis ESRD (end stage renal disease) ESRD on dialysis ESRD on dialysis Generalized anxiety disorder with panic attacks GERD without esophagitis Gross hematuria Hemoptysis Hepatomegaly Hyperkalemia Hypertension Hypertensive emergency Ileus PHT (pulmonary hypertension) Pneumonia Pulmonary embolism 09/21 Inconclusive for very tiny peripheral LEFT lower lobe pulmonary artery sub segmental emboli versus poor opacification. Right heart failure with reduced right ventricular function Smoking addiction Transaminitis Urethral stricture Surgical History H/O hand surgery Amputation right 2&3 fingers 2017 History of adenoidectomy Stented coronary artery Family History Father No problems noted. Other Hypertension Social History Smoking and tobacco status: current every day smoker cigarettes Packs smoked per day: 1.5 Years cigarettes smoked: 21 [ Other cigarette details: started age 20, currently 0.5ppd ] Alcohol intake: never Marital status: Number of children: 3 Current occupational status: disabled History of recent travel: No Physical Exam Const: COMMON NORMALS: patient oriented x3 HENMT: COMMON NORMALS: normocephalic and atraumatic HEAD & SCALP: normocephalic and atraumatic Eye: COMMON NORMALS: Equal, round and reactive pupils present and EOMs intact bilaterally PUPIL: Yes Equal, round and reactive pupils present Neck/C-Spine: COMMON NORMALS: full ROM and supple Chest: COMMONS NORMALS: normal inspection of the chest and normal palpation of entire chest wall Resp: COMMON NORMALS: No retractions, No use of accessory muscles and clear to auscultation bilaterally EFFORT & INSPECTION: Yes tachypneic AUSCULTATION: clear to auscultation bilaterally Cardio: COMMON NORMALS: regular rate, regular rhythm and No murmurs present (Cardio) RATE: regular rate RHYTHM: regular rhythm GI: COMMON NORMALS: Normal to inspection, nondistended, normoactive bowel sounds present, Soft to palpation, non-tender and no masses PALPATION: Yes Soft to palpation Extremity: COMMON NORMALS: normal to inspection and full ROM Neuro: COMMON NORMALS: patient oriented x3, moves all extremities and no focal motor deficits Psych: COMMON NORMALS: mental status grossly normal, Normal thought process present and cooperative THOUGHT PROCESS: Normal thought process present Skin: COMMON NORMALS: no rashes or lesions noted and no wounds GENERAL SKIN EXAM: no rashes or lesions noted Course Vital Signs: Vital signs: Vital Signs Temperature 97.5 F L 04/11/22 04:39 Pulse Rate 78 04/11/22 05:54 Respiratory Rate 20 H 04/11/22 05:54 Blood Pressure 171/118 04/11/22 05:54 Pulse Oximetry 95 04/11/22 05:54 Oxygen Delivery Me thod 04/11/22 05:23 Oxygen Flow Rate 3 04/11/22 05:23 MDM - SOB/Dyspnea Medical Decision Making Patient presents here with chest pain along with hypertension his pain is improved blood pressure has improved as well he is scheduled for dialysis today but he stable for discharge he is to go to dialysis in a few hours when it scheduled return if worsening. Lab Data 04/11/22 04:50 04/11/22 04:50 Labs/Radiology: Radiology Impressions Chest X-Ray 04/11/22 04:37 IMPRESSION: Stable chest with chronic findings but no significant change from 03/28/2022. Laboratory Results WBC 5.1 10^3/uL (4.0-10.0) 04/11/22 04:50 RBC 3.25 10^6/uL (4.1-5.3) L 04/11/22 04:50 Hgb 9.2 g/dL (11.7-16.6) L 04/11/22 04:50 Hct 28.9 % (42.0-52.0) L 04/11/22 04:50 MCV 88.9 fl (80-94) 04/11/22 04:50 MCH 28.3 pg (28.0-34.0) 04/11/22 04:50 MCHC 31.8 g/dL (30.0-36.0) 04/11/22 04:50 RDW 21.6 % (12.1-15.1) H 04/11/22 04:50 Plt Count 185 10^3/cmm (130-400) 04/11/22 04:50 MPV 9.7 fL (7.4-10.4) 04/11/22 04:50 Neut % (Auto) 68.5 % 04/11/22 04:50 Lymph % (Auto) 15.1 % 04/11/22 04:50 [place] % (Auto) 8.0 % 04/11/22 04:50 Eos % (Auto) 7.4 % 04/11/22 04:50 Baso % (Auto) 0.8 % 04/11/22 04:50 Neut # (Auto) 3.50 10^3/uL (1.8-7.7) 04/11/22 04:50 Lymph # (Auto) 0.8 10^3/uL (0.8-4.8) 04/11/22 04:50 [place] # (Auto) 0.4 10^3/uL (0.2-0.9) 04/11/22 04:50 Eos # (Auto) 0.4 10^3/uL (0.0-0.8) 04/11/22 04:50 Baso # (Auto) 0.0 10^3/uL (0.0-0.1) 04/11/22 04:50 Nucleated RBC % (auto) 0 % 04/11/22 04:50 Nucleated RBCs # 0.0 /100WBC 04/11/22 04:50 Sodium 135 mmol/L (136-145) L 04/11/22 04:50 Potassium 5.4 mmol/L (3.5-5.1) H 04/11/22 04:50 Chloride 90 mmol/L (98-107) L 04/11/22 04:50 Carbon Dioxide 29 mmol/L (22-29) 04/11/22 04:50 Anion Gap 21.4 (5-19) H 04/11/22 04:50 BUN 37 mg/dL (6-20) H 04/11/22 04:50 Creatinine 6.9 mg/dL (0.7-1.2) H* 04/11/22 04:50 GFR Calculation 9.0 mL/min (90-130) L 04/11/22 04:50 Glucose 79 mg/dL (65-115) 04/11/22 04:50 Calculated Osmolality 288 mOsm/kg (285-295) 04/11/22 04:50 Calcium 9.0 mg/dL (8.5-10.5) 04/11/22 04:50 Total Bilirubin 0.6 mg/dL (0.15-1.2) 04/11/22 04:50 AST 12 U/L (0-40) 04/11/22 04:50 ALT 11 U/L (0-41) 04/11/22 04:50 Alkaline Phosphatase 135 U/L (40-130) H 04/11/22 04:50 Troponin T Baseline 127 ng/L (0-15) H* 04/11/22 04:50 NT-Pro-B Natriuret Pep > 46900 pg/mL (0-125) H 04/11/22 04:50 Total Protein 6.5 g/dL (6.6-8.7) L 04/11/22 04:50 Albumin 3.7 g/dL (3.5-5.2) 04/11/22 04:50 Globulin 2.8 g/dL (1.3-4.6) 04/11/22 04:50 Discharge Plan Discharge Patient Disposition: Home Clinical Impression: Hypertension, ESRD on dialysis, Breath shortness Condition: Stable Prescriptions: No Action Xifaxan 550 mg tablet 550 mg PO BID Qty: 60 2RF Incruse Ellipta 62.5 mcg/actuation blister with device 1 inh INHALATION DAILY Qty: 30 2RF clonazepam 0.5 mg tablet 0.5 mg PO BEDTIME Qty: 30 0RF quetiapine 25 mg tablet 25 mg PO DAILY Qty: 90 0RF cyclobenzaprine 10 mg tablet 10 mg PO Q12H PRN (Reason: muscle spasm) Qty: 30 2RF nitroglycerin 0.4 mg tablet, sublingual 0.4 mg SUBLINGUAL Q5M PRN (Reason: Chest Pain) Qty: 30 5RF Rx Instructions: do not exceed 3 doses per episode clopidogrel 75 mg tablet 75 mg PO DAILY Qty: 90 3RF (DME) DME - BIPAP See Rx Instructions .Route .MEDSUPPLY Qty: 1 0RF Rx Instructions: Inspiratory Pressure: 16mmHg Expiratory Pressure: 8 mmHg Will need oxygen bled in to the machine to maintain sats >/= 90%. (DME) DME - Oxygen See Rx Instructions .Route .MEDSUPPLY Qty: 1 0RF Rx Instructions: Supplemental Oxygen bled into BIPAP at 2-3L to maintain oxygen sats at >/= 90%. carvedilol 25 mg tablet 25 mg PO BID 30 Days Qty: 60 0RF isosorbide mononitrate 60 mg tablet extended release 24 hr 60 mg PO DAILY lisinopril 40 mg Tablet 40 mg PO DAILY lactulose 20 gram/30 mL Solution 10 g PO TID PRN (Reason: Constipation) Auryxia 210 mg iron Tablet 420 mg PO TID Rx Instructions: administer with a meal minoxidil 2.5 mg Tablet 2.5 mg PO BID aspirin 81 mg tablet,delayed release (DR/EC) 81 mg PO DAILY amlodipine 10 mg tablet 10 mg PO BEDTIME pantoprazole 40 mg tablet,delayed release (DR/EC) 40 mg PO DAILY albuterol sulfate 90 mcg/actuation HFA aerosol inhaler 2 puff inhalation Q6H PRN (Reason: Shortness Of Breath Or Wheezing) clonidine HCl 0.2 mg tablet 0.2 mg PO TID hydralazine 50 mg tablet 50 mg PO TID RenaPlex-D 800 mcg-12.5 mg -2,000 unit tablet 1 tab PO QPM doxycycline hyclate 100 mg capsule 100 mg PO DAILY Discharge Orders: Discharge ED (Routine); Ordered 04/11/22 Ordered By: Dayana Nunez Referrals: Mal Peres DO [Primary Care Provider] - Discharge Diet: Advance as tolerated Discharge Activity: Resume usual activity Patient Instructions: Hypertension (ED), Shortness of Breath (ED) Coding Level of Care Code ED Pelt Inspector for Chg Fwd Exam Comprehensive
[2022-04-11 04:51] VITALS: RESP 30; O2SAT 93
[2022-04-11] MEDS: morphine 4 mg/mL SDV 1 mL IVP (04:51)
[2022-04-11] MEDS: ondansetron 2 mg/ML SDV 2 mL 4 MG IVP (04:51)
[2022-04-11] MEDS: labetalol 5 mg/mL SDV 20mL 20 MG IVP (04:54)
[2022-04-11 05:01] LABS: Basophils % 0.8 %; Eosinophils # 0.4 10^3/uL (0.0-0.8); Eosinophils % 7.4 %; Hematocrit 28.9 % (42.0-52.0); Hemoglobin 9.2 g/dL (11.7-16.6); Lymphocytes # 0.8 10^3/uL (0.8-4.8); Lymphocytes % 15.1 %; Mean Corpuscular HGB Conc 31.8 g/dL (30.0-36.0); Mean Corpuscular Hemoglobin 28.3 pg (28.0-34.0); Mean Corpuscular Volume 88.9 fl (80-94); Mean Platelet Volume 9.7 fL (7.4-10.4); Monocytes # 0.4 10^3/uL (0.2-0.9); Neutrophils % 68.5 %; Nucleated Red Blood Cells % 0 %; Platelet Count 185 10^3/cmm (130-400); Red Blood Count 3.25 10^6/uL (4.1-5.3); Red Cell Distribution Width 21.6 % (12.1-15.1); White Blood Count 5.1 10^3/uL (4.0-10.0)
[2022-04-11 05:23] VITALS: BP 193/116; PULSE 68; RESP 20; O2SAT 96
[2022-04-11] MEDS: hyDRALAzine 20 mg/mL INJ 1 mL 10 MG IVP (05:27)
[2022-04-11 05:29] LABS: Troponin(5th) Baseline 127 ng/L (0-15)
[2022-04-11 05:32] LABS: Alanine Aminotransferase 11 U/L (0-41); Albumin Level 3.7 g/dL (3.5-5.2); Alkaline Phosphatase 135 U/L (40-130); Anion Gap 21.4 (5-19); Aspartate Amino Transferase 12 U/L (0-40); Blood Urea Nitrogen 37 mg/dL (6-20); Carbon Dioxide 29 mmol/L (22-29); Chloride 90 mmol/L (98-107); Globulin 2.8 g/dL (1.3-4.6); Glucose 79 mg/dL (65-115); Osmolality Calculated 288 mOsm/kg (285-295); Potassium 5.4 mmol/L (3.5-5.1); Sodium 135 mmol/L (136-145); Total Bilirubin 0.6 mg/dL (0.15-1.2); Total Protein 6.5 g/dL (6.6-8.7)
[2022-04-11 05:54] VITALS: BP 171/118; PULSE 78; RESP 20; O2SAT 95
[2022-04-11 05:59] LABS: NT Pro B Type Natriuretic Pept > 70000 pg/mL (0-125)
== END 2022-04-11 05:50 | disposition home or self-care (01) ==
PROVIDERS: Emergency Provider Emergency Medicine; PCP Family Medicine
DX: I13.2 Hypertensive heart and chronic kidney disease with heart failure and with stage 5 chronic kidney disease, or end stage renal disease (principal); N18.6 End stage renal disease; I50.32 Chronic diastolic (congestive) heart failure; I25.10 Atherosclerotic heart disease of native coronary artery without angina pectoris; F17.210 Nicotine dependence, cigarettes, uncomplicated; Z99.2 Dependence on renal dialysis; Z79.82 Long term (current) use of aspirin; Z79.02 Long term (current) use of antithrombotics/antiplatelets; Z79.899 Other long term (current) drug therapy
CPT/HCPCS: 71045; 80053; 83880; 84484; 85025; 93005; 96374; 96375; 99285; J0360; J2270; J2405; J3490

== ENCOUNTER 2022-04-13 02:37 | Inpatient (IN) | payer MEDICARE, MEDICAID, SELFPAY ==
[2022-04-13] VITALS (83 sets, daily range): BP systolic 139–209; BP diastolic 62–147; PULSE 62–92; RESP 14–32; TEMP 36.6–36.9; O2SAT 80–100; BMI 23.7
--- NOTE | 2022-04-13 02:54 | ED_ITS ---
HPI - SOB/Dyspnea General: Chief Complaint: Shortness of Breath/Dyspnea Stated Complaint: SOB Time Seen by Provider: 04/13/22 02:48 Source: patient History of Present Illness: HPI Narrative: 41-year-old noncompliant patient with a history of coronary disease and end- stage renal disease on dialysis. His complaint is that of shortness of breath. He was seen the day prior with a complaint of chest discomfort and shortness of breath. He was hypertensive. His blood pressure was controlled at that visit and felt improved, so he was allowed home. He returns this morning. His main complaint is shortness of breath. He is hypertensive again. Evidently, he was going to attend dialysis, an extra session, on Thursday, but did not. MD elicited complaint: shortness of breath Pertinent past history: congestive heart failure and other Onset (ago): hour(s) Context: other Timing: progressively worsening Severity: severe Exacerbating factors: lying flat, exertion and other Relieving factors: oxygen Known history of: other Associated symptoms: Reports chest congestion and chest pain; Deny abdominal pain, fever(s), nausea, palpitations or vomiting Treatment prior to arrival: none Review of Systems Const: Denies: fever(s) ENMT: Denies: throat pain Card: Reports: chest pain; Denies: palpitations Resp: Reports: dyspnea, productive cough and chest congestion GI: Denies: abdominal pain, nausea or vomiting PFSH ED PFSH: Medical History (HFpEF) heart failure with preserved ejection fraction Abdominal ascites Abdominal distention Abnormality of rib determined by X-ray Acute and chronic respiratory failure with hypoxia Acute diastolic CHF (congestive heart failure) Anasarca Anemia Anxiety with depression Arteriovenous fistula for hemodialysis in place, secondary Ascites Atherosclerosis of coronary artery Chronic abdominal pain Chronic respiratory failure CKD (chronic kidney disease) stage 5, GFR less than 15 ml/min Congestive heart failure COPD (chronic obstructive pulmonary disease) COPD (chronic obstructive pulmonary disease) COPD (chronic obstructive pulmonary disease) COVID 05/25 Current smoker Degenerative disc disease, lumbar End stage renal disease End-stage renal disease needing dialysis End-stage renal disease on hemodialysis ESRD (end stage renal disease) ESRD on dialysis ESRD on dialysis Generalized anxiety disorder with panic attacks GERD without esophagitis Gross hematuria Hemoptysis Hepatomegaly Hyperkalemia Hypertension Hypertensive emergency Ileus PHT (pulmonary hypertension) Pneumonia Pulmonary embolism 09/21 Inconclusive for very tiny peripheral LEFT lower lobe pulmonary artery sub segmental emboli versus poor opacification. Right heart failure with reduced right ventricular function Smoking addiction Transaminitis Urethral stricture Surgical History H/O hand surgery Amputation right 2&3 fingers 2017 History of adenoidectomy Stented coronary artery Family History Father No problems noted. Other Hypertension Social History Smoking and tobacco status: current every day smoker cigarettes Packs smoked per day: 1.5 Years cigarettes smoked: 21 [ Other cigarette details: started age 20, currently 0.5ppd ] Alcohol intake: never Marital status: Number of children: 3 Current occupational status: disabled History of recent travel: No Physical Exam Const: GENERAL APPEARANCE: cooperative and ill appearing ORIENTATION/CONSCIOUSNESS: Yes awake, Yes oriented to person, Yes oriented to place and Yes oriented to time HENMT: COMMON NORMALS: normocephalic, atraumatic and Normal external nose present HEAD & SCALP: normocephalic and atraumatic FACE & SINUS: normal facial exam NOSE: Normal external nose present Eye: COMMON NORMALS: Equal, round and reactive pupils present and EOMs intact bilaterally PUPIL: Yes Equal, round and reactive pupils present Neck/C-Spine: GENERAL: Yes trachea midline Chest: CHEST: Yes Symmetrical chest wall rise Resp: EFFORT & INSPECTION: Yes tachypneic and Yes labored AUSCULTATION: rales and diminished lung sounds Cardio: COMMON NORMALS: regular rate and regular rhythm RATE: regular rate RHYTHM: regular rhythm GI: COMMON NORMALS: Normal to inspection, nondistended, normoactive bowel sounds present Extremity: COMMON NORMALS: no pedal edema Neuro: BUCK COMA SCALE: document GCS findings [place] coma scale eye opening: Spontaneous Buck coma scale verbal response: Orientated [place] coma scale motor response: Obey commands [place] coma scale total score: 15 SENSORIUM/ORIENTATION: Yes oriented to person, Yes oriented to place and Yes oriented to time SENSORY EXAM: Yes extremities (intact) Psych: COMMON NORMALS: speech normal SPEECH: Yes normal speech Skin: COMMON NORMALS: no rashes or lesions noted GENERAL SKIN EXAM: no rashes or lesions noted Course Vital Signs: Vital signs: Vital Signs Temperature 98 F 04/13/22 11:00 Pulse Rate 66 04/13/22 13:50 Respiratory Rate 17 04/13/22 12:00 Blood Pressure 182/117 04/13/22 12:00 Pulse Oximetry 97 04/13/22 13:50 Oxygen Delivery Me thod 04/13/22 08:45 Oxygen Flow Rate 4 04/13/22 08:45 Fraction of Inspir ed Oxygen 40 04/13/22 13:50 MDM - SOB/Dyspnea Medical Decision Making Mr Gibbs has significantly labored breathing. he is quite hypertensive. He was placed originally on 2 inches of nitropaste, and given labetalol without much improvement. He will be placed on a nitroglycerin drip for control of blood pressure. He is clearly in pulmonary edema. As he does not make significant urine, he'll need urgent dialysis. We consulted nephrology from the ER. He will go to the ICU on nitroglycerin drip, for dialysis there. His sodium is 124, which is significantly low for him. Hospitalist is aware. Lab Data 04/13/22 02:54 04/13/22 02:54 Labs/Radiology: Radiology Impressions Chest X-Ray 04/13/22 02:55 IMPRESSION: Stable chest with chronic findings but no acute process. Laboratory Results WBC 4.8 10^3/uL (4.0-10.0) 04/13/22 02:54 RBC 3.38 10^6/uL (4.1-5.3) L 04/13/22 02:54 Hgb 9.3 g/dL (11.7-16.6) L 04/13/22 02:54 Hct 30.0 % (42.0-52.0) L 04/13/22 02:54 MCV 88.8 fl (80-94) 04/13/22 02:54 MCH 27.5 pg (28.0-34.0) L 04/13/22 02:54 MCHC 31.0 g/dL (30.0-36.0) 04/13/22 02:54 RDW 21.2 % (12.1-15.1) H 04/13/22 02:54 Plt Count 207 10^3/cmm (130-400) 04/13/22 02:54 MPV 9.7 fL (7.4-10.4) 04/13/22 02:54 Neut % (Auto) 69.0 % 04/13/22 02:54 Lymph % (Auto) 14.9 % 04/13/22 02:54 [place] % (Auto) 7.9 % 04/13/22 02:54 Eos % (Auto) 7.0 % 04/13/22 02:54 Baso % (Auto) 0.8 % 04/13/22 02:54 Neut # (Auto) 3.33 10^3/uL (1.8-7.7) 04/13/22 02:54 Lymph # (Auto) 0.7 10^3/uL (0.8-4.8) L 04/13/22 02:54 [place] # (Auto) 0.4 10^3/uL (0.2-0.9) 04/13/22 02:54 Eos # (Auto) 0.3 10^3/uL (0.0-0.8) 04/13/22 02:54 Baso # (Auto) 0.0 10^3/uL (0.0-0.1) 04/13/22 02:54 Nucleated RBC % (auto) 0 % 04/13/22 02:54 Nucleated RBCs # 0.0 /100WBC 04/13/22 02:54 Specimen Type Arterial 04/13/22 04:19 Sample Site Radial, right 04/13/22 04:19 ABG pH 7.46 (7.35-7.45) H 04/13/22 04:19 ABG pCO2 45.9 mmHg (35-45) H 04/13/22 04:19 ABG pO2 64.8 mmHg (80.0-100.0) L 04/13/22 04:19 ABG HCO3 32.3 mmol/L (22-26) H 04/13/22 04:19 ABG Base Excess 7.6 mmol/L (-2.0-2.0) H 04/13/22 04:19 Alexei Test Pos 04/13/22 04:19 Hematocrit 28.2 % (42-52) L 04/13/22 04:19 O2 Delivery Device Nc 04/13/22 04:19 O2 Liters/Min 3.0 % 04/13/22 04:19 Datastage Developer ID [place] 04/13/22 04:19 Sodium 124 mmol/L (136-145) L 04/13/22 02:54 Potassium 5.0 mmol/L (3.5-5.1) 04/13/22 02:54 Chloride 84 mmol/L (98-107) L 04/13/22 02:54 Carbon Dioxide 31 mmol/L (22-29) H 04/13/22 02:54 Anion Gap 14.0 (5-19) 04/13/22 02:54 BUN 34 mg/dL (6-20) H 04/13/22 02:54 Creatinine 6.2 mg/dL (0.7-1.2) H* 04/13/22 02:54 GFR Calculation 10.1 mL/min (90-130) L 04/13/22 02:54 Glucose 82 mg/dL (65-115) 04/13/22 02:54 Calculated Osmolality 265 mOsm/kg (285-295) L 04/13/22 02:54 Calcium 9.6 mg/dL (8.5-10.5) 04/13/22 02:54 Phosphorus 6.2 mg/dL (2.5-4.5) H 04/13/22 02:54 Magnesium 1.9 mg/dL (1.7-2.3) 04/13/22 05:24 Total Bilirubin 0.7 mg/dL (0.15-1.2) 04/13/22 02:54 AST 11 U/L (0-40) 04/13/22 02:54 ALT 9 U/L (0-41) 04/13/22 02:54 Alkaline Phosphatase 140 U/L (40-130) H 04/13/22 02:54 Troponin T Baseline 138 ng/L (0-15) H* 04/13/22 05:24 NT-Pro-B Natriuret Pep > 10415 pg/mL (0-125) H 04/13/22 02:54 Total Protein 7.2 g/dL (6.6-8.7) 04/13/22 02:54 Albumin 3.6 g/dL (3.5-5.2) 04/13/22 02:54 Globulin 3.6 g/dL (1.3-4.6) 04/13/22 02:54 Procalcitonin 0.42 ng/mL (0-0.5) 04/13/22 05:24 Hep Bs Antigen Non-reactive (Nonreactive) 04/13/22 02:54 Discharge Plan Discharge Patient Disposition: Admitted As Inpatient Admit Provider: Brigitte Amin Clinical Impression: Acute on chronic diastolic (congestive) heart failure, ESRD on dialysis, Acute hyponatremia, Pulmonary edema Condition: Fair Coding Level of Care Code ED Target Network Analyst for Cristi Diane
--- NOTE | 2022-04-13 02:55 | XRR_ITS ---
PROCEDURE INFORMATION: Exam: XR Chest Exam date and time: 04/13/2022 3:08 AM Age: 41 years old Clinical indication: Shortness of breath; Patient HX: C/O persistent SOB. TECHNIQUE: Imaging protocol: Radiologic exam of the chest. Views: 1 view. COMPARISON: CR (CHEST, ) 04/11/2022 4:53 AM FINDINGS: Lungs: Moderate COPD. Diffuse chronic interstitial lung scarring again noted. No new consolidation or other change. Pleural spaces: Unremarkable. No pleural effusion. No pneumothorax. Heart/Mediastinum: The heart remains quite large. Diffuse vascular calcification. Bones/joints: Old right rib deformities. XR/XR chest 1V portable [id number] IMPRESSION: Stable chest with chronic findings but no acute process.
[2022-04-13 04:11] LABS: Alanine Aminotransferase 9 U/L (0-41); Albumin Level 3.6 g/dL (3.5-5.2); Alkaline Phosphatase 140 U/L (40-130); Aspartate Amino Transferase 11 U/L (0-40); Blood Urea Nitrogen 34 mg/dL (6-20); Calcium 9.6 mg/dL (8.5-10.5); Carbon Dioxide 31 mmol/L (22-29); Chloride 84 mmol/L (98-107); Globulin 3.6 g/dL (1.3-4.6); Glomerular Filtration Rate 10.1 mL/min (90-130); Glucose 82 mg/dL (65-115); Magnesium 1.8 mg/dL (1.7-2.3); Osmolality Calculated 265 mOsm/kg (285-295); Phosphorus 6.2 mg/dL (2.5-4.5); Sodium 124 mmol/L (136-145); Total Bilirubin 0.7 mg/dL (0.15-1.2); Total Protein 7.2 g/dL (6.6-8.7)
[2022-04-13] MEDS: nitroglycerin 1 gm/inch oint Pkt 2 INCH TOPICAL (04:16)
[2022-04-13] MEDS: labetalol 5 mg/mL SDV 20mL 20 MG IVP (04:19)
[2022-04-13 04:30] LABS: ABG PCO2 45.9 mmHg (35-45); ABG PH Result 7.46 (7.35-7.45); Arterial Blood Gas Hematocrit 28.2 % (42-52); Base Excess ABG 7.6 mmol/L (-2.0-2.0); Blood Gas Allen Test Pos; Blood Gas Operator Identificat WALCI; Blood Gas Sample Site Radial, right; Blood Gas Sample Type Arterial; HCO3 ABG 32.3 mmol/L (22-26); Oxygen Device NC; PO2 ABG 64.8 mmHg (80.0-100.0)
[2022-04-13 04:37] LABS: NT Pro B Type Natriuretic Pept > 70000 pg/mL (0-125)
[2022-04-13 04:59] LABS: Basophils % 0.8 %; Eosinophils # 0.3 10^3/uL (0.0-0.8); Hemoglobin 9.3 g/dL (11.7-16.6); Lymphocytes # 0.7 10^3/uL (0.8-4.8); Lymphocytes % 14.9 %; Mean Corpuscular Hemoglobin 27.5 pg (28.0-34.0); Mean Corpuscular Volume 88.8 fl (80-94); Mean Platelet Volume 9.7 fL (7.4-10.4); Monocytes # 0.4 10^3/uL (0.2-0.9); Monocytes % 7.9 %; Neutrophils # 3.33 10^3/uL (1.8-7.7); Nucleated Red Blood Cells % 0 %; Platelet Count 207 10^3/cmm (130-400); Red Blood Count 3.38 10^6/uL (4.1-5.3); Red Cell Distribution Width 21.2 % (12.1-15.1); White Blood Count 4.8 10^3/uL (4.0-10.0)
[2022-04-13] MEDS: ondansetron 2 mg/ML SDV 2 mL 4 MG IVP ×2 (04:59→19:18)
[2022-04-13] MEDS: morphine 4 mg/mL SDV 1 mL IVP (05:00)
[2022-04-13] MEDS: nitroglycerin drip 50 MG/250 ML PREMIX IV (06:06)
--- NOTE | 2022-04-13 06:21 | P.HP_ITS ---
Providers/Chief Complaint Admitting Physician: Brigitte Amin MD Primary Care Provider: Mal Peres DO Chief Complaint: SOB History of Present Illness Mal gloria, who carries history of end-stage renal disease, noncompliance, oxygen dependent COPD, uses BiPAP at home as well presenting for shortness of breath.?Patient is stating that he has been experiencing nausea, as well.?He recently had paracentesis done on Apr 03 and had 3600 cc removed. He says he has not missed any dialysis sessions. He decided to come to the hospital for worsening of his symptoms.? He has been experiencing shortness of breath. BP on arrival: 196/129, 87, 92 32. Nitro paste placed and then converted to nitro drip. Labs show sodium 124, K 5. Pipe Smoker Machine Operator consulted. CXR shows: pulm vasc congestion. Medications/Allergies Home Medications Medication Instructions Recorded Confirmed Last Taken Type carvedilol 25 mg tablet 25 mg PO BID 30 days #60 tabs 07/25/21 04/10/22 04/03/22 Rx umeclidinium 62.5 mcg/actuation 1 inh inhalation DAILY #30 ea 08/06/21 04/10/22 03/20/22 Rx blister powder for inhalation (Incruse Ellipta) isosorbide mononitrate 60 mg 60 mg PO DAILY 08/12/21 04/10/22 04/03/22 History tablet,extended release 24 hr ferric citrate 210 mg iron tablet 420 mg PO TID 11/03/21 04/10/22 03/20/22 History (Auryxia) lactulose 20 gram/30 mL oral 10 g PO TID PRN Constipation 11/03/21 04/10/22 03/20/22 History solution lisinopril 40 mg tablet 40 mg PO DAILY 11/03/21 04/10/22 04/03/22 History minoxidil 2.5 mg tablet 2.5 mg PO BID 11/22/21 04/10/22 03/20/22 History nitroglycerin 0.4 mg sublingual 0.4 mg sublingual Q5M PRN Chest 12/02/21 04/10/22 03/31/22 Rx tablet Pain #30 tabs clopidogrel 75 mg tablet 75 mg PO DAILY #90 tabs 01/28/22 04/10/22 04/03/22 Rx rifaximin 550 mg tablet (Xifaxan) 550 mg PO BID #60 tabs 02/04/22 04/10/22 04/03/22 Rx albuterol sulfate 90 mcg/actuation 2 puff inhalation Q6H PRN 02/21/22 04/10/22 03/20/22 History aerosol inhaler Shortness Of Breath Or Wheezing amlodipine 10 mg tablet 10 mg PO BEDTIME 02/21/22 04/10/22 04/02/22 History aspirin 81 mg tablet,delayed 81 mg PO DAILY 02/21/22 04/10/22 04/01/22 History release clonidine HCl 0.2 mg tablet 0.2 mg PO TID 02/21/22 04/10/22 04/03/22 History hydralazine 50 mg tablet 50 mg PO TID 02/21/22 04/10/22 04/03/22 History pantoprazole 40 mg tablet,delayed 40 mg PO DAILY 02/21/22 04/10/22 04/03/22 History release DME - BIPAP #1 ea 02/25/22 04/10/22 03/20/22 Rx DME - Oxygen #1 ea 02/25/22 04/10/22 03/20/22 Rx vit B,C-folic ac 800 mcg-zinc 12.5 1 tab PO QPM 03/14/22 04/10/22 03/20/22 History mg-selen-D3 2,000 unit-vit E tablet (RenaPlex-D) doxycycline hyclate 100 mg capsule 100 mg PO DAILY 04/02/22 04/10/22 04/03/22 History clonazepam 0.5 mg tablet 0.5 mg PO BEDTIME #30 tabs 04/10/22 04/10/22 Unknown Rx cyclobenzaprine 10 mg tablet 10 mg PO Q12H PRN muscle spasm #30 04/10/22 04/10/22 Unknown Rx tabs quetiapine 25 mg tablet 25 mg PO DAILY #90 tabs 04/10/22 04/10/22 Unknown Rx Allergies Allergy/AdvReac Type Severity Reaction Status Date / Time nifedipine Allergy Seth Verified 04/10/22 09:37 Lip/Tongue/Throat PFSH Acute PFSH: Medical History (HFpEF) heart failure with preserved ejection fraction Abdominal ascites Abdominal distention Abnormality of rib determined by X-ray Acute and chronic respiratory failure with hypoxia Acute diastolic CHF (congestive heart failure) Anasarca Anemia Anxiety with depression Arteriovenous fistula for hemodialysis in place, secondary Ascites Atherosclerosis of coronary artery Chronic abdominal pain Chronic respiratory failure CKD (chronic kidney disease) stage 5, GFR less than 15 ml/min Congestive heart failure COPD (chronic obstructive pulmonary disease) COPD (chronic obstructive pulmonary disease) COPD (chronic obstructive pulmonary disease) COVID 05/25 Current smoker Degenerative disc disease, lumbar End stage renal disease End-stage renal disease needing dialysis End-stage renal disease on hemodialysis ESRD (end stage renal disease) ESRD on dialysis ESRD on dialysis Generalized anxiety disorder with panic attacks GERD without esophagitis Gross hematuria Hemoptysis Hepatomegaly Hyperkalemia Hypertension Hypertensive emergency Ileus PHT (pulmonary hypertension) Pneumonia Pulmonary embolism 09/21 Inconclusive for very tiny peripheral LEFT lower lobe pulmonary artery sub segmental emboli versus poor opacification. Right heart failure with reduced right ventricular function Smoking addiction Transaminitis Urethral stricture Surgical History H/O hand surgery Amputation right 2&3 fingers 2017 History of adenoidectomy Stented coronary artery Family History Father No problems noted. Other Hypertension Social History Smoking and tobacco status: current every day smoker cigarettes Packs smoked per day: 1.5 Years cigarettes smoked: 21 [ Other cigarette details: started age 20, currently 0.5ppd ] Alcohol intake: never Marital status: Number of children: 3 Current occupational status: disabled History of recent travel: No Vitals/I&O/Wt Last Vital Signs Temp 98.2 F 04/13/22 02:44 Pulse 71 04/13/22 06:11 Resp 19 H 04/13/22 06:11 BP 174/114 04/13/22 06:11 Pulse Ox 92 04/13/22 06:11 O2 Del Method 04/13/22 06:11 O2 Flow Rate 4 04/13/22 06:11 Weight last 48 hrs Weight 79.379 kg Physical Exam Narrative: General: No acute distress, AO x3 HEENT: PERRLA, pupils bilaterally equal and reactive, pallors not present Chest: cta b/l with mild ronchi at bases. CVS: S1-S2 regular, no murmurs, no tachycardia, no gallops, no rubs Abdomen: Soft, distended, FF+ Neuro: No focal deficits, no facial deformity, AO x3, power 5/5 in all limbs Extremities: no edema, clubbing or cyanosis. Data 04/13/22 02:54 04/13/22 02:54 A&P Assessment and plan (1) Hypertension: (2) ESRD on dialysis: (3) Anxiety: (4) Incarcerated right inguinal hernia: (5) Hernia, umbilical: Qualifiers: Obstruction and gangrene presence: without obstruction or gangrene Qualified Code(s): K42.9 - Umbilical hernia without obstruction or gangrene (6) Generalized anxiety disorder with panic attacks: (7) Acute on chronic diastolic (congestive) heart failure: (8) ESRD on dialysis: (9) Breath shortness: Plan Acute on chronic hypoxia Increased work of breathing Patient uses 3 L of oxygen at home and does use BiPAP at home as well Use bipap if needed DuoNeb Continue nitro drip for now and try to wean off dialysis session again today. Chest pain at admission. Will check troponins End-stage renal disease Thursday dialysis sessions Consulted nephro Unsure whether he has completed his dialysis sessions potassium high end of normal Hypertensive emergency Continue home tablets of regimen as well nitro drip, wean as able Preserved ejection fraction heart failure no acute exacerbation He is prone to develop pulm edema related to fluid overload due to end-stage renal disease as well Ascites multiple paracentesis in the past most recent session apr 03 re-order paracentesis for thursday. has significant ascites today. Unkept appearance Patient is full code Renal diet. No outside food allowed. Attestations Medical Necessity Statement*: Continue medical management requiring more than 2 midnight Coding Level of Care Code Acute Commissioning Manager for g Fwd Diagnoses Hypertension I10 ESRD on dialysis N18.6; Z99.2 Anxiety F41.9 Incarcerated right inguinal hernia K40.30 Hernia, umbilical K42.9 Obstruction and gangrene presence: without obstruction or gangrene Generalized anxiety disorder with panic attacks F41.1; F41.0 Acute on chronic diastolic (congestive) heart failure I50.33 ESRD on dialysis N18.6; Z99.2 Breath shortness R06.02
--- NOTE | 2022-04-13 06:47 | P.CONIM_ITS ---
Providers/Reason For Consult Consulting Physician/Specialty*: Imani Seo DO, telenephrology Reason for Consult*: ESRD, fluid overload Requesting Physician: Brigitte Amin MD Attending Physician: Brigitte Amin MD Primary Care Provider: Mal Peres DO History of Present Illness History of Present Illness Mal Gibbs is a 41 year old male presented to ER for evaluation of shortness of breath and nausea. Gets HD MWF, had paracentesis 04/03/22. O2 dependent COPD, BiPAP at home. Reports no missed HD this week. States he is following 32 oz daily fluid restriction. Review of Systems Const: Reports: fatigue Card: Denies: chest pain Resp: Reports: dyspnea GI: Reports: nausea; Denies: vomiting Medications/Allergies Home Medications Medication Instructions Recorded Confirmed Last Taken Type carvedilol 25 mg tablet 25 mg PO BID 30 days #60 tabs 07/25/21 04/10/22 04/03/22 Rx umeclidinium 62.5 mcg/actuation 1 inh inhalation DAILY #30 ea 08/06/21 04/10/22 03/20/22 Rx blister powder for inhalation (Incruse Ellipta) isosorbide mononitrate 60 mg 60 mg PO DAILY 08/12/21 04/10/22 04/03/22 History tablet,extended release 24 hr ferric citrate 210 mg iron tablet 420 mg PO TID 11/03/21 04/10/22 03/20/22 History (Auryxia) lactulose 20 gram/30 mL oral 10 g PO TID PRN Constipation 11/03/21 04/10/22 03/20/22 History solution lisinopril 40 mg tablet 40 mg PO DAILY 11/03/21 04/10/22 04/03/22 History minoxidil 2.5 mg tablet 2.5 mg PO BID 11/22/21 04/10/22 03/20/22 History nitroglycerin 0.4 mg sublingual 0.4 mg sublingual Q5M PRN Chest 12/02/21 04/10/22 03/31/22 Rx tablet Pain #30 tabs clopidogrel 75 mg tablet 75 mg PO DAILY #90 tabs 01/28/22 04/10/22 04/03/22 Rx rifaximin 550 mg tablet (Xifaxan) 550 mg PO BID #60 tabs 02/04/22 04/10/22 04/03/22 Rx albuterol sulfate 90 mcg/actuation 2 puff inhalation Q6H PRN 02/21/22 04/10/22 03/20/22 History aerosol inhaler Shortness Of Breath Or Wheezing amlodipine 10 mg tablet 10 mg PO BEDTIME 02/21/22 04/10/22 04/02/22 History aspirin 81 mg tablet,delayed 81 mg PO DAILY 02/21/22 04/10/22 04/01/22 History release clonidine HCl 0.2 mg tablet 0.2 mg PO TID 02/21/22 04/10/22 04/03/22 History hydralazine 50 mg tablet 50 mg PO TID 02/21/22 04/10/22 04/03/22 History pantoprazole 40 mg tablet,delayed 40 mg PO DAILY 02/21/22 04/10/22 04/03/22 History release DME - BIPAP #1 ea 02/25/22 04/10/22 03/20/22 Rx DME - Oxygen #1 ea 02/25/22 04/10/22 03/20/22 Rx vit B,C-folic ac 800 mcg-zinc 12.5 1 tab PO QPM 03/14/22 04/10/22 03/20/22 History mg-selen-D3 2,000 unit-vit E tablet (RenaPlex-D) doxycycline hyclate 100 mg capsule 100 mg PO DAILY 04/02/22 04/10/22 04/03/22 History clonazepam 0.5 mg tablet 0.5 mg PO BEDTIME #30 tabs 04/10/22 04/10/22 Unknown Rx cyclobenzaprine 10 mg tablet 10 mg PO Q12H PRN muscle spasm #30 04/10/22 04/10/22 Unknown Rx tabs quetiapine 25 mg tablet 25 mg PO DAILY #90 tabs 04/10/22 04/10/22 Unknown Rx Allergies Allergy/AdvReac Type Severity Reaction Status Date / Time nifedipine Allergy Seth Verified 04/10/22 09:37 Lip/Tongue/Throat Current Medications Generic Name Dose Route Start Last Admin Trade Name Freq PRN Reason Stop Dose Admin Nitroglycerin/Dextrose 50 mg in 250 mls @ 0 mls/hr 04/13/22 05:15 04/13/22 06:06 Nitroglycerin Drip IV 5 mcg/min .Q0M ARTEM 1.5 mls/hr Administration Protocol Per Protocol PFSH Acute PFSH: Medical History (HFpEF) heart failure with preserved ejection fraction Abdominal ascites Abdominal distention Abnormality of rib determined by X-ray Acute and chronic respiratory failure with hypoxia Acute diastolic CHF (congestive heart failure) Anasarca Anemia Anxiety with depression Arteriovenous fistula for hemodialysis in place, secondary Ascites Atherosclerosis of coronary artery Chronic abdominal pain Chronic respiratory failure CKD (chronic kidney disease) stage 5, GFR less than 15 ml/min Congestive heart failure COPD (chronic obstructive pulmonary disease) COPD (chronic obstructive pulmonary disease) COPD (chronic obstructive pulmonary disease) COVID 05/25 Current smoker Degenerative disc disease, lumbar End stage renal disease End-stage renal disease needing dialysis End-stage renal disease on hemodialysis ESRD (end stage renal disease) ESRD on dialysis ESRD on dialysis Generalized anxiety disorder with panic attacks GERD without esophagitis Gross hematuria Hemoptysis Hepatomegaly Hyperkalemia Hypertension Hypertensive emergency Ileus PHT (pulmonary hypertension) Pneumonia Pulmonary embolism 09/21 Inconclusive for very tiny peripheral LEFT lower lobe pulmonary artery sub segmental emboli versus poor opacification. Right heart failure with reduced right ventricular function Smoking addiction Transaminitis Urethral stricture Surgical History H/O hand surgery Amputation right 2&3 fingers 2017 History of adenoidectomy Stented coronary artery Family History Father No problems noted. Other Hypertension Social History Smoking and tobacco status: current every day smoker cigarettes Packs smoked per day: 1.5 Years cigarettes smoked: 21 [ Other cigarette details: started age 20, currently 0.5ppd ] Alcohol intake: never Marital status: Number of children: 3 Current occupational status: disabled History of recent travel: No Vitals/I&O/Wt Last Vital Signs Temp 98.2 F 04/13/22 02:44 Pulse 71 04/13/22 06:11 Resp 19 H 04/13/22 06:11 BP 174/114 04/13/22 06:11 Pulse Ox 92 04/13/22 06:11 O2 Del Method 04/13/22 06:11 O2 Flow Rate 4 04/13/22 06:11 Weight last 48 hrs Weight 79.379 kg Physical Exam Const: COMMON NORMALS: no acute distress and alert Extremity: NARRATIVE EXTREMITY EXAM: very large left forearm AVF, skin intact, + thrill per RN, no signs of infection Neuro: SENSORIUM/ORIENTATION: Yes alert Data 04/13/22 02:54 04/13/22 02:54 Other Labs: albumin 3.6, Ca 9.6, phos 6.2, BNP > 70,000 CXR: Radiologist's impression: Lungs: Moderate COPD. Diffuse chronic interstitial lung scarring again noted. No new consolidation or other change. Pleural spaces: Unremarkable. No pleural effusion. No pneumothorax. Heart/Mediastinum: The heart remains quite large. Diffuse vascular calcification. Bones/joints: Old right rib deformities. ABG Interpretation 1: 04/13/22 04:19 ABG pH 7.46 H ABG pCO2 45.9 H ABG pO2 64.8 L ABG HCO3 32.3 H ABG Base Excess 7.6 H My Interpretation: 3L NC, metabolic alkalosis, respiratory acidosis Other data: written and verbal consent obtained for telehealth visit seen and examined via telehealth with assistance of RN at bedside A&P Assessment and plan (1) ESRD on dialysis: Plan 1. ESRD, usual HD MWF 2. Volume overload, chronic CHF 3. Hypervolemic hyponatremia, asymptomatic 4. Severe hypertension 5. Anemia. Hb will improve with fluid removal Recommend: HD today 4h, 4L UF as tolerated, 2K bath. HD again tomorrow. Fluid and salt restrict, no IVs, BPs, blood draws left arm. I suggested that his chronic HD rx be 4 x weekly. Consult Attestations Medical Necessity Statement: see above Time Spent in Patient Care: 16 - 35 minutes Coding Level of Care Code Acute Residence Life Coordinator for g Fwd Diagnoses ESRD on dialysis N18.6; Z99.2
[2022-04-13 06:52] LABS: Magnesium 1.9 mg/dL (1.7-2.3)
[2022-04-13 06:59] LABS: Procalcitonin 0.42 ng/mL (0-0.5)
[2022-04-13 07:15] LABS: Troponin(5th) Baseline 138 ng/L (0-15)
[2022-04-13] MEDS: heparin 5,000 unit/mL INJ 1 mL 5000 UNIT SUBCUT ×2 (07:25→17:38)
[2022-04-13 07:28] LABS: Hepatitis B Surface Antigen Non-Reactive (Nonreactive)
[2022-04-13 08:13] LABS: Troponin 5 2HR Delta -2.4 ABS# (0-10)
[2022-04-13 08:14] LABS: Troponin 5 2HR 135.6 ng/L (0-15)
--- NOTE | 2022-04-13 08:41 | ECG_ITS ---
[facility] Test Date: 2022-04-13 Pat Name: Mal Gibbs Department: Room: [facility] Gender: Male [employer] Pilot: : 1980 Requested By: Brigitte Amin Order Number: [id number] Mohini MD: Bharathi Markham M.D. Measurements Intervals [place] Rate: 74 P: 69 TN: 205 QRS: 67 QRSD: 110 T: 84 QT: 405 QTc: 451 Interpretive Statements SINUS RHYTHM POSSIBLE LEFT ATRIAL ENLARGEMENT [-0.1mV P-WAVE IN V1/V2] Compared to ECG 04/11/2022 04:45:42 No significant changes Electronically Signed On 04-13-2022 12:55:31 SIGNALS INTELLIGENCE ANALYSIS MANAGER by Bharathi Markham M.D. [id number]
[2022-04-13] MEDS: aspirin 81 mg EC Tablet PO (09:04)
[2022-04-13] MEDS: carvedilol 25 mg Tablet PO ×2 (09:04→17:39)
[2022-04-13] MEDS: clopidogrel 75 mg Tablet PO (09:04)
[2022-04-13] MEDS: quetiapine 25 mg Tablet PO (09:04)
[2022-04-13] MEDS: pantoprazole DR 40 mg Tablet PO (09:04)
--- NOTE | 2022-04-13 11:24 | PC.NURSE ---
dyspnic note still pending dialysis placed on bipap at this time .
[2022-04-13 11:37] LABS: Troponin 5 6HR 132.6 ng/L (0-15); Troponin 5 6HR Delta -5.4 ng/L (0-12)
--- NOTE | 2022-04-13 12:16 | ECG_ITS ---
[facility] Test Date: 2022-04-13 Pat Name: Mal Gibbs Department: Room: [facility] Gender: Male Raw Products Director: : 1980 Requested By: Brigitte Amin Order Number: [id number] Mohini MD: Bharathi Markham M.D. Measurements Intervals [place] Rate: 64 P: 23 NV: 207 QRS: 67 QRSD: 105 T: 87 QT: 437 QTc: 451 Interpretive Statements SINUS RHYTHM Compared to ECG 04/13/2022 08:41:27 No significant changes Electronically Signed On 04-13-2022 12:55:43 CHANNEL PROGRAM MANAGER by Bharathi Markham M.D. [id number]
[2022-04-13] MEDS: ipratropium-albuterol 3 mL Neb INHALATION (15:35)
[2022-04-13] MEDS: acetaminophen 325 mg Tablet 650 MG PO (19:19)
--- NOTE | 2022-04-13 20:03 | P.MISC_ITS ---
Miscellaneous Note Note: Patient admitted with hypertensive urgency. Seen by dispensing operator late this morning. On NTG drip. Chart reviewed. Agree with plan of care.
--- NOTE | 2022-04-13 20:03 | PM.MISC ---
Miscellaneous Note Note: Patient admitted with hypertensive urgency. Seen by wood boat builder supervisor late this morning. On NTG drip. Chart reviewed. Agree with plan of care.
--- NOTE | 2022-04-13 20:21 | PC.NURSE ---
Notified Dr. Amin that patient is currently at 50mcg/min on NTG drip and blood pressure is currently 189/119. Home medications confirmed for patient. Awaiting orders.
[2022-04-13] MEDS: CLONazepam 0.5 mg Tablet PO (20:33)
[2022-04-13] MEDS: hyDRALAzine 50 mg Tablet PO (20:34)
[2022-04-13] MEDS: cloNIDine 0.1 mg Tablet 0.2 MG PO (20:34)
[2022-04-13] MEDS: minoxidil 10 mg Tablet 2.5 MG PO (22:49)
--- NOTE | 2022-04-13 23:08 | PC.NURSE ---
Nitro drip turned off per patient request. Educated patient that his blood pressure is very high and could be detrimental to him. States I am used of my blood pressure being shanna, turn off the nitro, my head is hurting and I can't stand it . Dr. Amin notified.
[2022-04-13] MEDS: acetaminophen 500 mg Tablet 1000 MG PO (23:24)
[2022-04-14] VITALS (100 sets, daily range): BP systolic 128–205; BP diastolic 68–149; PULSE 61–92; RESP 13–27; TEMP 36.4–36.9; O2SAT 90–100
[2022-04-14 02:19] LABS: Basophils # 0.1 10^3/uL (0.0-0.1); Basophils % 1.2 %; Eosinophils # 0.3 10^3/uL (0.0-0.8); Eosinophils % 7.5 %; Hematocrit 26.4 % (42.0-52.0); Lymphocytes # 0.5 10^3/uL (0.8-4.8); Lymphocytes % 11.7 %; Mean Corpuscular HGB Conc 30.3 g/dL (30.0-36.0); Mean Corpuscular Hemoglobin 27.6 pg (28.0-34.0); Mean Platelet Volume 10.1 fL (7.4-10.4); Monocytes # 0.3 10^3/uL (0.2-0.9); Monocytes % 8.2 %; Neutrophils # 2.85 10^3/uL (1.8-7.7); Neutrophils % 71.2 %; Nucleated Red Blood Cells % 0 %; Platelet Count 202 10^3/cmm (130-400); Red Cell Distribution Width 20.6 % (12.1-15.1)
[2022-04-14 02:55] LABS: Alanine Aminotransferase 7 U/L (0-41); Albumin Level 3.1 g/dL (3.5-5.2); Alkaline Phosphatase 117 U/L (40-130); Anion Gap 11.2 (5-19); Aspartate Amino Transferase 8 U/L (0-40); Blood Urea Nitrogen 25 mg/dL (6-20); Calcium 9.1 mg/dL (8.5-10.5); Carbon Dioxide 31 mmol/L (22-29); Chloride 92 mmol/L (98-107); Globulin 3.1 g/dL (1.3-4.6); Glomerular Filtration Rate 14.3 mL/min (90-130); Glucose 92 mg/dL (65-115); Osmolality Calculated 272 mOsm/kg (285-295); Potassium 5.2 mmol/L (3.5-5.1); Sodium 129 mmol/L (136-145); Total Bilirubin 0.6 mg/dL (0.15-1.2); Total Protein 6.2 g/dL (6.6-8.7)
[2022-04-14] MEDS: hyDRALAzine 20 mg/mL INJ 1 mL 10 MG IVP (06:28)
[2022-04-14] MEDS: ipratropium-albuterol 3 mL Neb INHALATION (07:57)
[2022-04-14] MEDS: cloNIDine 0.1 mg Tablet 0.2 MG PO ×3 (08:29→20:00)
[2022-04-14] MEDS: minoxidil 10 mg Tablet 2.5 MG PO ×2 (08:29→17:37)
[2022-04-14] MEDS: aspirin 81 mg EC Tablet PO (08:30)
[2022-04-14] MEDS: lisinopril 20 mg Tablet 40 MG PO (08:30)
[2022-04-14] MEDS: quetiapine 25 mg Tablet PO (08:30)
[2022-04-14] MEDS: pantoprazole DR 40 mg Tablet PO (08:30)
[2022-04-14] MEDS: clopidogrel 75 mg Tablet PO (08:30)
[2022-04-14] MEDS: hyDRALAzine 50 mg Tablet PO ×3 (08:30→20:00)
[2022-04-14] MEDS: carvedilol 25 mg Tablet PO ×2 (08:30→17:37)
--- NOTE | 2022-04-14 10:14 | PC.CHAP ---
Pastoral Care Encounter/Spiritual Assessment Type of Contact [] Declined lab technician visit [] Patient/Family/Request visit [] Outpatient visit [] Follow-up visit [] Physician referral [] Code/Alert [x] Routine visit [] Staff referral [] Actively dying [x] Patient sleeping [] Family support [] [] Out of room [] Palliative care [] [] Receiving care in room [] Pre-surgical visit [] Trauma [] Long length of stay [x] ICU visit [x] Other: oxg mask Relational/Emotional Strength [] Patient feels connected with others/family/visitors/staff [] Distress [] Loneliness/isolation [] Abandonment Spirituality of Patient [] Person of Ct [] Attends Restorationist of their Ct [] Believes in Prayer [] Reads Bible or Taoism materials [] There are Spiritual issues to be addressed Monument Stonecutter Interventions [x] Prayer [] Active listening [] Non-anxious presence [] Spiritual/emotional support [] Crisis/trauma care [] Spiritual counseling [] Bereavement support [] Provided bereavement packet [] Provided Bible/devotional materials [] Provided toy/stuffed animal, coloring book to patient or family member [] Provided Communion [] Anointing/[place] [] Salvation [x] Completed spiritual assessment [] Other: Impact on Illness or Injury [] Angry [] Fearful [] Anxious [] Often cries [] Exhaustion [] Unable to work [] Unable to attend congregation [] Unable to walk/stand [] Unable to read [] Unable to drive [] Unable to eat/drink [] Unable to sleep [] Unable to be with family [] Patient intubated [] Other: Summary Time spent with patient
--- NOTE | 2022-04-14 11:40 | PM.PN ---
Subjective Subjective: on BIPAP Medications: Reviewed: Yes Vitals/I&O/Wt Last Vital Signs Temp 98.3 F 04/14/22 09:00 Pulse 75 04/14/22 10:00 Resp 17 04/14/22 10:00 BP 194/118 04/14/22 10:00 Pulse Ox 98 04/14/22 10:00 O2 Del Method 04/14/22 08:00 O2 Flow Rate 4 04/13/22 19:00 FiO2 40 04/14/22 10:00 04/13/22 04/14/22 04/14/22 22:59 06:59 14:59 Intake Total 870.375 / 870.375 72.6 / 942.975 Output Total 4571 / 4571 0 / 4571 Balance -3700.625 / -3700.625 72.6 / -3628.025 Weight last 48 hrs Weight 76.34 kg Weight 75.9 kg Weight 79.379 kg Physical Exam Const: COMMON NORMALS: no acute distress and alert Extremity: NARRATIVE EXTREMITY EXAM: very large left forearm AVF, skin intact, + thrill per RN, no signs of infection Neuro: SENSORIUM/ORIENTATION: Yes alert Data 04/14/22 01:42 04/14/22 01:42 A&P Assessment and plan (1) ESRD on dialysis: Plan 1. ESRD, usual HD MWF 2. Volume overload, chronic CHF 3. Hypervolemic hyponatremia, asymptomatic 4. Severe hypertension 5. Anemia. Hb will improve with fluid removal Recommend: HD today 4h, 4L UF as tolerated, 2K bath. HD again tomorrow. Fluid and salt restrict, no IVs, BPs, blood draws left arm. I suggested that his chronic HD rx be 4 x weekly. Attestations Medical Necessity Statement*: Continue medical management requiring more than 2 midnight Coding Level of Care Code Acute Gluing Machine Feeder for g Fwd Diagnoses ESRD on dialysis N18.6; Z99.2
[2022-04-14] MEDS: heparin, porcine 1,000 unit/mL INJ 10 mL 1000 UNIT IV (12:10)
--- NOTE | 2022-04-14 12:55 | US_ITS ---
WS: [id number] Limited abdomen ultrasound. HISTORY: Ascites. 4 quadrants are imaged. There is a small amount of fluid within all 4 quadrants. This is simple fluid . US/US abdomen lmt fluid [id number] IMPRESSION: 1. Small amount of ascites. Paracentesis will not yield very much fluid or reli ef. Discussed with Dr. Umana. At this time no paracentesis will be performed unle ss otherwise requested.
--- NOTE | 2022-04-14 14:09 | PM.PN ---
Subjective Subjective: Patient was seen this morning, overnight he refused a nitroglycerin drip due to headaches, currently his blood pressure is 190s over 110, is alert oriented x3, following all commands, he received dialysis last night, plans on dialysis this morning, he is on BiPAP, he denies any headache currently not, no nausea, vomiting, chest pain, he does complain of abdominal distention and abdominal tightness Vitals/I&O/Wt Last Vital Signs Temp 98.3 F 04/14/22 12:00 Pulse 70 04/14/22 12:00 Resp 17 04/14/22 12:00 BP 194/118 04/14/22 12:00 Pulse Ox 99 04/14/22 12:00 O2 Del Method 04/14/22 08:00 O2 Flow Rate 4 04/13/22 19:00 FiO2 40 04/14/22 12:00 04/13/22 04/14/22 04/14/22 22:59 06:59 14:59 Intake Total 870.375 / 870.375 72.6 / 942.975 60 / 60 Output Total 4571 / 4571 0 / 4571 0 / 0 Balance -3700.625 / -3700.625 72.6 / -3628.025 60 / 60 Weight last 48 hrs Weight 76.34 kg Weight 75.9 kg Weight 79.379 kg Physical Exam Const: COMMON NORMALS: no acute distress and patient oriented x3 Resp: COMMON NORMALS: normal respiratory effort, No retractions, No use of accessory muscles and clear to auscultation bilaterally AUSCULTATION: clear to auscultation bilaterally Cardio: COMMON NORMALS: regular rate, regular rhythm, S1 normal heart sound present and S2 normal heart sound present RATE: regular rate RHYTHM: regular rhythm HEART SOUNDS: S1 normal heart sound present and S2 normal heart sound present GI: COMMON NORMALS: Soft to palpation, non-tender and No hepatosplenomegaly present INSPECTION: Yes Abdominal wall edema AUSCULTATION: Yes normoactive bowel sounds PALPATION: Yes Soft to palpation and Yes No hepatosplenomegaly present Extremity: COMMON NORMALS: no pedal edema Neuro: COMMON NORMALS: patient oriented x3 Psych: COMMON NORMALS: mental status grossly normal Data 04/14/22 01:42 04/14/22 01:42 A&P Assessment and plan (1) Hypertension: (2) ESRD on dialysis: (3) Anxiety: (4) Incarcerated right inguinal hernia: (5) Hernia, umbilical: Qualifiers: Obstruction and gangrene presence: without obstruction or gangrene Qualified Code(s): K42.9 - Umbilical hernia without obstruction or gangrene (6) Generalized anxiety disorder with panic attacks: (7) Acute on chronic diastolic (congestive) heart failure: (8) ESRD on dialysis: (9) Breath shortness: (10) Acute respiratory failure with hypoxia: Plan Acute on chronic hypoxic respiratory failure secondary to fluid overload Increased work of breathing Patient uses 3 L of oxygen at home and does use BiPAP at home as well Continue BiPAP, BiPAP as needed DuoNeb Refused nitroglycerin drip, optimize p.o. medication Dialysis today End-stage renal disease Thursday dialysis sessions Consulted nephro Unsure whether he has completed his dialysis sessions potassium high end of normal Hypertensive emergency Continue home tablets of regimen as well Refused nitroglycerin drip Preserved ejection fraction heart failure no acute exacerbation He is prone to develop pulm edema related to fluid overload due to end-stage renal disease as well Ascites multiple paracentesis in the past most recent session dec re-order paracentesis for today Unkept appearance Patient is full code Renal diet. No outside food allowed. Attestations Medical Necessity Statement*: Patient requires hospitalization, inpatient, greater than 2 midnights, for acute hypoxic respiratory failure, pulm edema, ascites Coding Level of Care Code Acute [employer] for [facility] Fwd Diagnoses Hypertension I10 ESRD on dialysis N18.6; Z99.2 Anxiety F41.9 Incarcerated right inguinal hernia K40.30 Hernia, umbilical K42.9 Obstruction and gangrene presence: without obstruction or gangrene Generalized anxiety disorder with panic attacks F41.1; F41.0 Acute on chronic diastolic (congestive) heart failure I50.33 ESRD on dialysis N18.6; Z99.2 Breath shortness R06.02 Acute respiratory failure with hypoxia J96.01
[2022-04-14] MEDS: isosorbide mononitrate ER 60 mg Tablet PO (15:36)
[2022-04-14 16:49] LABS: INR 1.08 (0.8-1.2)
[2022-04-14] MEDS: heparin 5,000 unit/mL INJ 1 mL 5000 UNIT SUBCUT (17:36)
[2022-04-14] MEDS: amlodipine 10 mg Tablet PO (20:00)
[2022-04-14] MEDS: CLONazepam 0.5 mg Tablet PO (20:00)
[2022-04-15] VITALS (49 sets, daily range): BP systolic 138–174; BP diastolic 73–125; PULSE 70–88; RESP 13–30; TEMP 36.9; O2SAT 92–100
[2022-04-15 03:18] LABS: Basophils % 0.8 %; Eosinophils # 0.3 10^3/uL (0.0-0.8); Eosinophils % 6.7 %; Hematocrit 26.8 % (42.0-52.0); Hemoglobin 8.4 g/dL (11.7-16.6); Lymphocytes # 0.5 10^3/uL (0.8-4.8); Lymphocytes % 10.6 %; Mean Corpuscular HGB Conc 31.3 g/dL (30.0-36.0); Mean Corpuscular Hemoglobin 28.2 pg (28.0-34.0); Mean Corpuscular Volume 89.9 fl (80-94); Mean Platelet Volume 10.1 fL (7.4-10.4); Monocytes # 0.5 10^3/uL (0.2-0.9); Monocytes % 9.6 %; Neutrophils # 3.54 10^3/uL (1.8-7.7); Neutrophils % 72.1 %; Nucleated Red Blood Cells % 0 %; Platelet Count 222 10^3/cmm (130-400); Red Blood Count 2.98 10^6/uL (4.1-5.3); Red Cell Distribution Width 20.5 % (12.1-15.1); White Blood Count 4.9 10^3/uL (4.0-10.0)
[2022-04-15 03:41] LABS: Alanine Aminotransferase 6 U/L (0-41); Albumin Level 3.1 g/dL (3.5-5.2); Alkaline Phosphatase 124 U/L (40-130); Anion Gap 13.5 (5-19); Aspartate Amino Transferase 8 U/L (0-40); Blood Urea Nitrogen 14 mg/dL (6-20); Calcium 9.2 mg/dL (8.5-10.5); Carbon Dioxide 29 mmol/L (22-29); Chloride 91 mmol/L (98-107); Globulin 2.9 g/dL (1.3-4.6); Glomerular Filtration Rate 17.8 mL/min (90-130); Glucose 92 mg/dL (65-115); Magnesium 1.9 mg/dL (1.7-2.3); Osmolality Calculated 268 mOsm/kg (285-295); Phosphorus 5.3 mg/dL (2.5-4.5); Potassium 4.5 mmol/L (3.5-5.1); Sodium 129 mmol/L (136-145); Total Bilirubin 0.5 mg/dL (0.15-1.2)
[2022-04-15 04:34] LABS: NT Pro B Type Natriuretic Pept > 70000 pg/mL (0-125)
--- NOTE | 2022-04-15 06:13 | PC.NURSE ---
Shift Note Frequent safety and comfort rounds continue. Orders and/or nursing care completed as indicated. Patient monitored for response to intervention and treatment(s). Education provided includes treatment plan. Patient verbalized understanding of teaching. Patient had an uneventful shift, remains on BIPAP 40% FiO2 and is alert/oriented x4. No wounds or skin issues noted at this time. Patient reported abd. pain at beginning of shift, denied pain medication when offered by nurse. Will continue to monitor.
[2022-04-15] MEDS: minoxidil 10 mg Tablet 2.5 MG PO (08:48)
[2022-04-15] MEDS: cloNIDine 0.1 mg Tablet 0.2 MG PO (08:48)
[2022-04-15] MEDS: aspirin 81 mg EC Tablet PO (08:50)
[2022-04-15] MEDS: quetiapine 25 mg Tablet PO (08:50)
[2022-04-15] MEDS: hyDRALAzine 50 mg Tablet PO (08:50)
[2022-04-15] MEDS: pantoprazole DR 40 mg Tablet PO (08:50)
[2022-04-15] MEDS: clopidogrel 75 mg Tablet PO (08:50)
[2022-04-15] MEDS: carvedilol 25 mg Tablet PO (08:50)
[2022-04-15] MEDS: lisinopril 20 mg Tablet 40 MG PO (08:51)
--- NOTE | 2022-04-15 11:56 | P.DS_ITS ---
Discharge Providers Date of Admission: 04/13/22 05:26 Date of Discharge: April 15, 2022 Attending Provider at Admission: Brigitte Amin MD Attending Provider at Discharge: Tunde Umana MD Primary Care Provider: Mal Peres DO Diagnoses at Discharge Discharge Diagnosis (1) Hypertension: Status: Acute (2) ESRD on dialysis: Status: Acute (3) Anxiety: Status: Acute (4) Incarcerated right inguinal hernia: Status: Acute (5) Hernia, umbilical: Status: Inactive Qualifiers: Obstruction and gangrene presence: without obstruction or gangrene Qualified Code(s): K42.9 - Umbilical hernia without obstruction or gangrene (6) Generalized anxiety disorder with panic attacks: Status: Acute (7) Acute on chronic diastolic (congestive) heart failure: Status: Acute (8) ESRD on dialysis: Status: Acute (9) Breath shortness: Status: Acute (10) Acute respiratory failure with hypoxia: Status: Acute Reason for Visit Reason for Visit: SOB Hospital Course Hospital Course [facility] [place] disease, who carries history of end-stage renal disease, noncompliance, oxygen dependent COPD, uses BiPAP at home as well presenting for shortness of breath. Patient was admitted to [facility] for fluid overload, pulm edema, hypertensive emergency, anasarca, managed in the ICU, nephrology consulted, placed on BiPAP, nitroglycerin drip. Patient received inpatient dialysis, required blood pressure management, he refused nitroglycerin drip, was managed with his p.o. medications. His p.o. blood pressure medications were resumed, his blood pressure returned back to normal range, asymptomatic, no chest pain, no shortness of breath, no strokelike symptoms. After receiving several sessions of dialysis, his fluid overload improved, pulm edema improved, shortness of breath improved. Will be discharged with instructions to increase his dialysis days to 4 times a week as per nephrology. He also had slight abdominal distention, ultrasound of the abdomen did not show any significant ascites that was drainable, if he develops worsening abdominal distention advised him to come back to the hospital for consideration of paracentesis. Follow-up with primary care provider in 1 week Physical Exam Const: COMMON NORMALS: no acute distress and patient oriented x3 Resp: COMMON NORMALS: normal respiratory effort, No retractions, No use of accessory muscles and clear to auscultation bilaterally AUSCULTATION: clear to auscultation bilaterally Cardio: COMMON NORMALS: regular rate, regular rhythm, S1 normal heart sound present and S2 normal heart sound present RATE: regular rate RHYTHM: regular rhythm HEART SOUNDS: S1 normal heart sound present and S2 normal heart sound present GI: COMMON NORMALS: Normal to inspection, nondistended, normoactive bowel sounds present and non-tender Extremity: COMMON NORMALS: no pedal edema Neuro: COMMON NORMALS: patient oriented x3 Psych: COMMON NORMALS: mental status grossly normal Discharge Data Studies Completed and Pending Completed Studies During Hospitalization Category Date Time Status XR chest 1V portable [id number] Stat Exams 04/13/22 02:55 Completed US abdomen lmt fluid [id number] Routine Ultrasound 04/14/22 12:55 Completed Pending at discharge Category Date Time Status Complete Blood Count w/Auto AM LABS Lab 04/16/22 04:00 Ordered Complete Blood Count w/Auto AM LABS Lab 04/17/22 04:00 Ordered Comprehensive Metabolic Panel AM LABS Lab 04/16/22 04:00 Ordered Comprehensive Metabolic Panel AM LABS Lab 04/17/22 04:00 Ordered Magnesium AM LABS Lab 04/16/22 04:00 Ordered Magnesium AM LABS Lab 04/17/22 04:00 Ordered NT Pro B Type Natriuretic Pept QAM Lab 04/16/22 06:00 Ordered NT Pro B Type Natriuretic Pept QAM Lab 04/17/22 06:00 Ordered Phosphorus AM LABS Lab 04/16/22 04:00 Ordered Phosphorus AM LABS Lab 04/17/22 04:00 Ordered Sputum Culture and Gram Stain Stat Lab 04/13/22 06:29 Uncollected Radiology Impressions Chest X-Ray 04/13/22 02:55 IMPRESSION: Stable chest with chronic findings but no acute process. Abdomen Ultrasound 04/14/22 12:55 IMPRESSION: 1. Small amount of ascites. Paracentesis will not yield very much fluid or relief. Discussed with Dr. Umana. At this time no paracentesis will be performed unless otherwise requested. Laboratory Results WBC 4.9 10^3/uL (4.0-10.0) 04/15/22 02:43 RBC 2.98 10^6/uL (4.1-5.3) L 04/15/22 02:43 Hgb 8.4 g/dL (11.7-16.6) L 04/15/22 02:43 Hct 26.8 % (42.0-52.0) L 04/15/22 02:43 MCV 89.9 fl (80-94) 04/15/22 02:43 MCH 28.2 pg (28.0-34.0) 04/15/22 02:43 MCHC 31.3 g/dL (30.0-36.0) 04/15/22 02:43 RDW 20.5 % (12.1-15.1) H 04/15/22 02:43 Plt Count 222 10^3/cmm (130-400) 04/15/22 02:43 MPV 10.1 fL (7.4-10.4) 04/15/22 02:43 Neut % (Auto) 72.1 % 04/15/22 02:43 Lymph % (Auto) 10.6 % 04/15/22 02:43 [place] % (Auto) 9.6 % 04/15/22 02:43 Eos % (Auto) 6.7 % 04/15/22 02:43 Baso % (Auto) 0.8 % 04/15/22 02:43 Neut # (Auto) 3.54 10^3/uL (1.8-7.7) 04/15/22 02:43 Lymph # (Auto) 0.5 10^3/uL (0.8-4.8) L 04/15/22 02:43 [place] # (Auto) 0.5 10^3/uL (0.2-0.9) 04/15/22 02:43 Eos # (Auto) 0.3 10^3/uL (0.0-0.8) 04/15/22 02:43 Baso # (Auto) 0.0 10^3/uL (0.0-0.1) 04/15/22 02:43 Nucleated RBC % (auto) 0 % 04/15/22 02:43 Nucleated RBCs # 0.0 /100WBC 04/15/22 02:43 PT 14.30 SECONDS (12.1-14.9) 04/14/22 15:56 INR 1.08 (0.8-1.2) 04/14/22 15:56 Specimen Type Arterial 04/13/22 04:19 Sample Site Radial, right 04/13/22 04:19 ABG pH 7.46 (7.35-7.45) H 04/13/22 04:19 ABG pCO2 45.9 mmHg (35-45) H 04/13/22 04:19 ABG pO2 64.8 mmHg (80.0-100.0) L 04/13/22 04:19 ABG HCO3 32.3 mmol/L (22-26) H 04/13/22 04:19 ABG Base Excess 7.6 mmol/L (-2.0-2.0) H 04/13/22 04:19 Alexei Test Pos 04/13/22 04:19 Hematocrit 28.2 % (42-52) L 04/13/22 04:19 O2 Delivery Device Nc 04/13/22 04:19 O2 Liters/Min 3.0 % 04/13/22 04:19 Geometry Tutor ID [place] 04/13/22 04:19 Sodium 129 mmol/L (136-145) L 04/15/22 02:43 Potassium 4.5 mmol/L (3.5-5.1) 04/15/22 02:43 Chloride 91 mmol/L (98-107) L 04/15/22 02:43 Carbon Dioxide 29 mmol/L (22-29) 04/15/22 02:43 Anion Gap 13.5 (5-19) 04/15/22 02:43 BUN 14 mg/dL (6-20) 04/15/22 02:43 Creatinine 3.8 mg/dL (0.7-1.2) H 04/15/22 02:43 GFR Calculation 17.8 mL/min (90-130) L 04/15/22 02:43 Glucose 92 mg/dL (65-115) 04/15/22 02:43 Calculated Osmolality 268 mOsm/kg (285-295) L 04/15/22 02:43 Calcium 9.2 mg/dL (8.5-10.5) 04/15/22 02:43 Phosphorus 5.3 mg/dL (2.5-4.5) H 04/15/22 02:43 Magnesium 1.9 mg/dL (1.7-2.3) 04/15/22 02:43 Total Bilirubin 0.5 mg/dL (0.15-1.2) 04/15/22 02:43 AST 8 U/L (0-40) 04/15/22 02:43 ALT 6 U/L (0-41) 04/15/22 02:43 Alkaline Phosphatase 124 U/L (40-130) 04/15/22 02:43 Troponin T Baseline 138 ng/L (0-15) H* 04/13/22 05:24 Troponin T 120 Minute 135.6 ng/L (0-15) H 04/13/22 07:42 Delta Troponin T -2.4 ABS# (0-10) L 04/13/22 07:42 Troponin T Hi Sens 6Hr 132.6 ng/L (0-15) H 04/13/22 11:08 Troponin T Hi Sens 6Hr Delta -5.4 ng/L (0-12) L 04/13/22 11:08 NT-Pro-B Natriuret Pep > 06866 pg/mL (0-125) H 04/15/22 02:43 Total Protein 6.0 g/dL (6.6-8.7) L 04/15/22 02:43 Albumin 3.1 g/dL (3.5-5.2) L 04/15/22 02:43 Globulin 2.9 g/dL (1.3-4.6) 04/15/22 02:43 Procalcitonin 0.42 ng/mL (0-0.5) 04/13/22 05:24 Hep Bs Antigen Non-reactive (Nonreactive) 04/13/22 02:54 Vitals Last Vital Signs Temp 98.4 F 04/14/22 19:45 Pulse 88 04/15/22 11:00 Resp 17 04/15/22 11:00 BP 152/87 04/15/22 09:00 Pulse Ox 97 04/15/22 11:00 O2 Del Method 04/15/22 07:41 O2 Flow Rate 4 04/14/22 20:18 FiO2 40 04/15/22 08:00 Discharge Plan Discharge Patient Disposition: Home Condition: Good Prescriptions: Continued Xifaxan 550 mg tablet 550 mg PO BID Qty: 60 2RF Incruse Ellipta 62.5 mcg/actuation blister with device 1 inh INHALATION DAILY Qty: 30 2RF clonazepam 0.5 mg tablet 0.5 mg PO BEDTIME Qty: 30 0RF quetiapine 25 mg tablet 25 mg PO DAILY Qty: 90 0RF cyclobenzaprine 10 mg tablet 10 mg PO Q12H PRN (Reason: muscle spasm) Qty: 30 2RF nitroglycerin 0.4 mg tablet, sublingual 0.4 mg SUBLINGUAL Q5M PRN (Reason: Chest Pain) Qty: 30 5RF Rx Instructions: do not exceed 3 doses per episode clopidogrel 75 mg tablet 75 mg PO DAILY Qty: 90 3RF (DME) DME - BIPAP See Rx Instructions .Route .MEDSUPPLY Qty: 1 0RF Rx Instructions: Inspiratory Pressure: 16mmHg Expiratory Pressure: 8 mmHg Will need oxygen bled in to the machine to maintain sats >/= 90%. (DME) DME - Oxygen See Rx Instructions .Route .MEDSUPPLY Qty: 1 0RF Rx Instructions: Supplemental Oxygen bled into BIPAP at 2-3L to maintain oxygen sats at >/= 90%. carvedilol 25 mg tablet 25 mg PO BID 30 Days Qty: 60 0RF isosorbide mononitrate 60 mg tablet extended release 24 hr 60 mg PO DAILY lisinopril 40 mg Tablet 40 mg PO DAILY lactulose 20 gram/30 mL Solution 10 g PO TID PRN (Reason: Constipation) Auryxia 210 mg iron Tablet 420 mg PO TID Rx Instructions: administer with a meal minoxidil 2.5 mg Tablet 2.5 mg PO BID aspirin 81 mg tablet,delayed release (DR/EC) 81 mg PO DAILY amlodipine 10 mg tablet 10 mg PO BEDTIME pantoprazole 40 mg tablet,delayed release (DR/EC) 40 mg PO DAILY albuterol sulfate 90 mcg/actuation HFA aerosol inhaler 2 puff inhalation Q6H PRN (Reason: Shortness Of Breath Or Wheezing) clonidine HCl 0.2 mg tablet 0.2 mg PO TID hydralazine 50 mg tablet 50 mg PO TID RenaPlex-D 800 mcg-12.5 mg -2,000 unit tablet 1 tab PO QPM Discontinued doxycycline hyclate 100 mg capsule 100 mg PO DAILY Discharge Orders: Discharge Order (Routine); Ordered 04/15/22 Ordered By: Tunde Umana Referrals: Mal Peres DO [Primary Care Provider] - 1-3 days Discharge Diet: Cardiac Discharge Activity: Resume usual activity Patient Instructions: Opioid Safety Activity Restrictions/Additional Instructions: - Please see your primary care in 48 hours for blood pressure check -Please be compliant with dialysis therapy - Discharge Attestations Time Spent in Discharge Care*: less than 30 min Status at Discharge: Cognitive status at discharge: cognitively intact , Behavioral status at discharge: cooperative , Quality Metrics Clinical Quality Measures [ No reported AMI, CVA or VTE this stay] Coding Level of Care Code Acute Chg FW DC note Diagnoses Hypertension I10 ESRD on dialysis N18.6; Z99.2 Anxiety F41.9 Incarcerated right inguinal hernia K40.30 Hernia, umbilical K42.9 Obstruction and gangrene presence: without obstruction or gangrene Generalized anxiety disorder with panic attacks F41.1; F41.0 Acute on chronic diastolic (congestive) heart failure I50.33 ESRD on dialysis N18.6; Z99.2 Breath shortness R06.02 Acute respiratory failure with hypoxia J96.01
--- NOTE | 2022-04-15 12:36 | PC.NURSE ---
All IVs removed catheter intact. All discharge instructions given to patient. Patient exited facility via W/C to main entrance. Patient verbalzied understanding.
== END 2022-04-15 12:37 | disposition home or self-care (01) | DRG 640 ==
LOC: ER 04:56 → ICU 05:37
PROVIDERS: Internal Medicine; Admitting Provider Internal Medicine; Emergency Provider Emergency Medicine; PCP Family Medicine; Visit Provider Family Medicine
DX: E87.70 Fluid overload, unspecified (principal); N18.6 End stage renal disease; I13.2 Hypertensive heart and chronic kidney disease with heart failure and with stage 5 chronic kidney disease, or end stage renal disease; I50.32 Chronic diastolic (congestive) heart failure; K40.30 Unilateral inguinal hernia, with obstruction, without gangrene, not specified as recurrent; I16.1 Hypertensive emergency; R18.8 Other ascites; Z91.15 Patient's noncompliance with renal dialysis; Z99.2 Dependence on renal dialysis; K42.9 Umbilical hernia without obstruction or gangrene; F41.1 Generalized anxiety disorder; F41.0 Panic disorder [episodic paroxysmal anxiety]; Z99.81 Dependence on supplemental oxygen; J44.9 Chronic obstructive pulmonary disease, unspecified; Z79.02 Long term (current) use of antithrombotics/antiplatelets; Z79.82 Long term (current) use of aspirin; Z79.51 Long term (current) use of inhaled steroids; Z86.16 Personal history of COVID-19; I27.20 Pulmonary hypertension, unspecified; Z86.711 Personal history of pulmonary embolism; I25.10 Atherosclerotic heart disease of native coronary artery without angina pectoris; Z95.5 Presence of coronary angioplasty implant and graft; F17.210 Nicotine dependence, cigarettes, uncomplicated; D63.1 Anemia in chronic kidney disease
CPT/HCPCS: 12345; 36415; 36600; 71045; 76705; 80048; 80053; 82803; 83735; 83880; 84100; 84145; 84484; 85025; 85610; 87340; 90935; 93005; 94640; 94660; 94664; 96365; 96372; 96374; 96375; 99285; J0360; J1644; J2270; J2405; J3490; Q3014

== ENCOUNTER 2022-04-17 11:42 | Day surgery (SDC) | payer MEDICARE, MEDICAID, SELFPAY ==
[2022-04-16 07:58] VITALS: BMI 23.1
[2022-04-17 11:49] VITALS: BP 184/120; PULSE 79; RESP 20; TEMP 36.7; O2SAT 92
[2022-04-17 11:52] VITALS: BP 206/122; PULSE 72; RESP 20; O2SAT 92
--- NOTE | 2022-04-17 11:54 | US_ITS ---
WS: [id number] ULTRASOUND-GUIDED THERAPEUTIC PARACENTESIS Procedure, risks, and complications have been explained to the patient. Consent is obtained. Utilizing aseptic technique and 1% buffered lidocaine, a small dermatome was made through which a 5 F rench Yueh catheter was inserted. Approximately 2750 ml of clear peritoneal fluid was obtained witho ut difficulty. No complications encountered. US/US paracentesis abd w [id number] IMPRESSION: Uncomplicated paracentesis yielding 2750 ml of peritoneal fluid.
--- NOTE | 2022-04-17 11:57 | PC.NURSE ---
patient c/o pain to RLQ and belly button, states he has a hernia and that is what is causing his pain. States nothing helps with the pain. Noted elevated BP, patient states he just took his medicine 30 minutes ago.
[2022-04-17 13:12] VITALS: BP 162/99; PULSE 69; RESP 18; O2SAT 92
--- NOTE | 2022-04-17 13:18 | PC.NURSE ---
1310 patient states pain is better just hurts in my groin from the hernia . During procedure drainage slowed around 2600, moved patient, had patient cough, manipulated tubing. Stopped at 2750.
== END 2022-04-17 13:14 | disposition home or self-care (01) ==
LOC: GILAB 11:43
PROVIDERS: PCP Family Medicine; Visit Provider Registered Nurse
PROC: (CPT 49082; principal; 2022-04-17 12:30)
DX: R18.8 Other ascites (principal)
CPT/HCPCS: 49083; P9047

== ENCOUNTER 2022-04-19 08:48 | Emergency (ER) | payer MEDICARE, MEDICAID, SELFPAY ==
--- NOTE | 2022-04-19 08:54 | XRR_ITS ---
PROCEDURE INFORMATION: Exam: XR Chest Exam date and time: 04/19/2022 9:15 AM Age: 41 years old Clinical indication: Shortness of breath; Patient HX: C/O SOB; Additional info: Dyspnea/cough TECHNIQUE: Imaging protocol: Radiologic exam of the chest. Views: 1 view. COMPARISON: CR (CHEST, ) 04/13/2022 3:08 AM FINDINGS: Lungs: Interstitial pulmonary edema. Similar rounded nodular opacities in the right lung. Pleural spaces: Unremarkable. No pleural effusion. No pneumothorax. Heart/Mediastinum: Cardiomegaly. Bones/joints: Unremarkable. XR/XR chest 1V portable [id number] IMPRESSION: Similar cardiomegaly with interstitial pulmonary edema and small rounded nodules in the right lung.
[2022-04-19 08:59] VITALS: BP 204/124; PULSE 88; RESP 22; TEMP 37.1; O2SAT 98
--- NOTE | 2022-04-19 09:00 | ED_ITS ---
HPI - SOB/Dyspnea General: Chief Complaint: Shortness of Breath/Dyspnea Stated Complaint: SOB Time Seen by Provider: 04/19/22 08:49 Source: patient Mode of arrival: EMS History of Present Illness: HPI Narrative: 41-year-old male with a history of end-stage renal disease on dialysis and end- stage liver disease. Patient frequently presents emergency room with complaint of shortness of breath which is a manifestation of his anxiety. He is at the point now he even recognizes and comments this morning that he is very anxious. On arrival here he is hyperventilating he denies any fever sweats or chills he denies any productive cough he has no chest pain he had a full dialysis run yesterday. His blood pressure is markedly elevated he has not taken any of his regular morning antihypertensives. 2 days ago patient had paracentesis for his ascites. He is normally on oxygen at 3 L/min on presentation here he is at 3 L/min satting [id number]%. MD elicited complaint: shortness of breath and cough Pertinent past history: COPD, congestive heart failure and diabetes Onset (ago): minute(s) Timing: constant Exacerbating factors: nothing Relieving factors: nothing Known history of: COPD, congestive heart failure and diabetes Associated symptoms: Reports sense of impending doom; Deny abdominal pain, chest congestion, chest pain, cough, diaphoresis, dizziness, extremity pain, fever(s), hemoptysis, lightheadedness, myalgias, nausea, orthopnea, palpitations, paresthesias, polydipsia, polyuria, rash, syncope or vomiting Treatment prior to arrival: oxygen Review of Systems Const: Denies: fever(s) or diaphoresis ENMT: Denies: throat pain, ear or mastoid pain, nasal discharge or nasal congestion Card: Denies: chest pain, palpitations, lightheadedness, syncope or orthopnea Resp: Denies: hemoptysis or chest congestion GI: Denies: abdominal pain, nausea or vomiting : Denies: flank pain, dysuria, urinary frequency or urinary urgency Musc: Denies: extremity pain Skin/Breast: Denies: rash or pruritus Neuro: Denies: dizziness Endo: Denies: polyuria or polydipsia PFS ED PFSH: Medical History (HFpEF) heart failure with preserved ejection fraction Abdominal ascites Abdominal distention Abnormality of rib determined by X-ray Acute and chronic respiratory failure with hypoxia Acute diastolic CHF (congestive heart failure) Anasarca Anemia Anxiety with depression Arteriovenous fistula for hemodialysis in place, secondary Ascites Atherosclerosis of coronary artery Chronic abdominal pain Chronic respiratory failure CKD (chronic kidney disease) stage 5, GFR less than 15 ml/min Congestive heart failure COPD (chronic obstructive pulmonary disease) COPD (chronic obstructive pulmonary disease) COPD (chronic obstructive pulmonary disease) COVID 05/25 Current smoker Degenerative disc disease, lumbar End stage renal disease End-stage renal disease needing dialysis End-stage renal disease on hemodialysis ESRD (end stage renal disease) ESRD on dialysis ESRD on dialysis Generalized anxiety disorder with panic attacks GERD without esophagitis Gross hematuria Hemoptysis Hepatomegaly Hyperkalemia Hypertension Hypertensive emergency Ileus PHT (pulmonary hypertension) Pneumonia Pulmonary embolism 09/21 Inconclusive for very tiny peripheral LEFT lower lobe pulmonary artery sub segmental emboli versus poor opacification. Right heart failure with reduced right ventricular function Smoking addiction Transaminitis Urethral stricture Surgical History H/O hand surgery Amputation right 2&3 fingers 2017 History of adenoidectomy Stented coronary artery Family History Father No problems noted. Other Hypertension Social History Smoking and tobacco status: current every day smoker cigarettes Packs smoked per day: 1.5 Years cigarettes smoked: 21 [ Other cigarette details: started age 20, currently 0.5ppd ] Alcohol intake: never Marital status: Number of children: 3 Current occupational status: disabled History of recent travel: No Physical Exam Const: COMMON NORMALS: no acute distress GENERAL APPEARANCE: cooperative and comfortable ORIENTATION/CONSCIOUSNESS: Yes awake, Yes oriented to person, Yes oriented to place and Yes oriented to time HENMT: COMMON NORMALS: normocephalic, atraumatic, hearing grossly normal bilaterally, external ears normal, EAC's normal, TM's normal bilaterally, Normal nasal mucous membranes and turbinates present and moist oral mucous membranes HEAD & SCALP: normocephalic and atraumatic NOSE: Normal nasal mucous membranes and turbinates present EXTERNAL EAR: Yes external ears normal EXTERNAL AUDITORY CANAL: EAC's normal TYMPANIC MEMBRANE: TM's normal bilaterally Eye: COMMON NORMALS: Equal, round and reactive pupils present, EOMs intact bilaterally, conjunctivae normal and no scleral icterus CONJUNCTIVA: Yes conjunctivae normal PUPIL: Yes Equal, round and reactive pupils present Neck/C-Spine: COMMON NORMALS: full ROM and supple Lymph: LYMPHATIC: no lymphadenopathy noted and no lymphedema noted Resp: COMMON NORMALS: normal respiratory effort, No retractions, No use of accessory muscles and clear to auscultation bilaterally AUSCULTATION: clear to auscultation bilaterally Cardio: COMMON NORMALS: regular rate, regular rhythm and No murmurs present ( Cardio) RATE: regular rate RHYTHM: regular rhythm GI: COMMON NORMALS: Soft to palpation and No hepatosplenomegaly present AUSCULTATION: Yes normoactive bowel sounds PALPATION: Yes Soft to palpation, No Tenderness to palpation present (GI), No Guarding due to palpation present (GI) and Yes No hepatosplenomegaly present Extremity: COMMON NORMALS: normal to inspection, capillary refill normal and no calf tenderness GENERAL: Yes edema Neuro: SENSORIUM/ORIENTATION: Yes oriented to person, Yes oriented to place and Yes oriented to time Skin: COMMON NORMALS: no rashes or lesions noted GENERAL SKIN EXAM: no rashes or lesions noted Course Vital Signs: Vital signs: Vital Signs Temperature 98.7 F 04/19/22 12:14 Pulse Rate 84 04/19/22 12:14 Respiratory Rate 26 H 04/19/22 12:14 Blood Pressure 185/116 04/19/22 12:14 Pulse Oximetry 94 04/19/22 12:14 Oxygen Delivery Me thod 04/19/22 11:15 Oxygen Flow Rate 4 04/19/22 11:15 MDM - SOB/Dyspnea Medical Decision Making Patient has significant anxiety has had recurrent problems with in the past with Ativan he is improved will discharge home continue same medications. His hyperventilation is decreased from when he first arrived from Medical Records I reviewed the patient's medical records. Lab Data I reviewed the patient's lab results. 04/19/22 09:00 04/19/22 09:00 Labs/Radiology: Radiology Impressions Chest X-Ray 04/19/22 08:54 IMPRESSION: Similar cardiomegaly with interstitial pulmonary edema and small rounded nodules in the right lung. Laboratory Results WBC 3.7 10^3/uL (4.0-10.0) L 04/19/22 09:00 RBC 3.73 10^6/uL (4.1-5.3) L 04/19/22 09:00 Hgb 10.4 g/dL (11.7-16.6) L 04/19/22 09:00 Hct 32.9 % (42.0-52.0) L 04/19/22 09:00 MCV 88.2 fl (80-94) 04/19/22 09:00 MCH 27.9 pg (28.0-34.0) L 04/19/22 09:00 MCHC 31.6 g/dL (30.0-36.0) 04/19/22 09:00 RDW 20.1 % (12.1-15.1) H 04/19/22 09:00 Plt Count 287 10^3/cmm (130-400) 04/19/22 09:00 MPV 9.6 fL (7.4-10.4) 04/19/22 09:00 Neut % (Auto) 64.5 % 04/19/22 09:00 Lymph % (Auto) 16.8 % 04/19/22 09:00 [place] % (Auto) 10.0 % 04/19/22 09:00 Eos % (Auto) 6.8 % 04/19/22 09:00 Baso % (Auto) 1.6 % 04/19/22 09:00 Neut # (Auto) 2.39 10^3/uL (1.8-7.7) 04/19/22 09:00 Lymph # (Auto) 0.6 10^3/uL (0.8-4.8) L 04/19/22 09:00 [place] # (Auto) 0.4 10^3/uL (0.2-0.9) 04/19/22 09:00 Eos # (Auto) 0.3 10^3/uL (0.0-0.8) 04/19/22 09:00 Baso # (Auto) 0.1 10^3/uL (0.0-0.1) 04/19/22 09:00 Nucleated RBC % (auto) 0 % 04/19/22 09:00 Nucleated RBCs # 0.0 /100WBC 04/19/22 09:00 Sodium 137 mmol/L (136-145) 04/19/22 09:00 Potassium 4.9 mmol/L (3.5-5.1) 04/19/22 09:00 Chloride 91 mmol/L (98-107) L 04/19/22 09:00 Carbon Dioxide 32 mmol/L (22-29) H 04/19/22 09:00 Anion Gap 18.9 (5-19) 04/19/22 09:00 BUN 20 mg/dL (6-20) 04/19/22 09:00 Creatinine 4.4 mg/dL (0.7-1.2) H 04/19/22 09:00 GFR Calculation 15.0 mL/min (90-130) L 04/19/22 09:00 Glucose 87 mg/dL (65-115) 04/19/22 09:00 Calculated Osmolality 286 mOsm/kg (285-295) 04/19/22 09:00 Calcium 9.9 mg/dL (8.5-10.5) 04/19/22 09:00 Total Bilirubin 0.6 mg/dL (0.15-1.2) 04/19/22 09:00 AST 16 U/L (0-40) 04/19/22 09:00 ALT 8 U/L (0-41) 04/19/22 09:00 Alkaline Phosphatase 159 U/L (40-130) H 04/19/22 09:00 Total Protein 7.3 g/dL (6.6-8.7) 04/19/22 09:00 Albumin 4.2 g/dL (3.5-5.2) 04/19/22 09:00 Globulin 3.1 g/dL (1.3-4.6) 04/19/22 09:00 Discharge Plan Discharge Patient Disposition: Home Clinical Impression: Anxiety, ESRD on dialysis, S/P abdominal paracentesis, Hypertension Condition: Stable Prescriptions: No Action Xifaxan 550 mg tablet 550 mg PO BID Qty: 60 2RF Incruse Ellipta 62.5 mcg/actuation blister with device 1 inh INHALATION DAILY Qty: 30 2RF clonazepam 0.5 mg tablet 0.5 mg PO BEDTIME Qty: 30 0RF quetiapine 25 mg tablet 25 mg PO DAILY Qty: 90 0RF cyclobenzaprine 10 mg tablet 10 mg PO Q12H PRN (Reason: muscle spasm) Qty: 30 2RF nitroglycerin 0.4 mg tablet, sublingual 0.4 mg SUBLINGUAL Q5M PRN (Reason: Chest Pain) Qty: 30 5RF Rx Instructions: do not exceed 3 doses per episode clopidogrel 75 mg tablet 75 mg PO DAILY Qty: 90 3RF (DME) DME - BIPAP See Rx Instructions .Route .MEDSUPPLY Qty: 1 0RF Rx Instructions: Inspiratory Pressure: 16mmHg Expiratory Pressure: 8 mmHg Will need oxygen bled in to the machine to maintain sats >/= 90%. (DME) DME - Oxygen See Rx Instructions .Route .MEDSUPPLY Qty: 1 0RF Rx Instructions: Supplemental Oxygen bled into BIPAP at 2-3L to maintain oxygen sats at >/= 90%. carvedilol 25 mg tablet 25 mg PO BID 30 Days Qty: 60 0RF isosorbide mononitrate 60 mg tablet extended release 24 hr 60 mg PO DAILY lisinopril 40 mg Tablet 40 mg PO DAILY lactulose 20 gram/30 mL Solution 10 g PO TID PRN (Reason: Constipation) Auryxia 210 mg iron Tablet 420 mg PO TID Rx Instructions: administer with a meal minoxidil 2.5 mg Tablet 2.5 mg PO BID aspirin 81 mg tablet,delayed release (DR/EC) 81 mg PO DAILY amlodipine 10 mg tablet 10 mg PO BEDTIME pantoprazole 40 mg tablet,delayed release (DR/EC) 40 mg PO DAILY albuterol sulfate 90 mcg/actuation HFA aerosol inhaler 2 puff inhalation Q6H PRN (Reason: Shortness Of Breath Or Wheezing) clonidine HCl 0.2 mg tablet 0.2 mg PO TID hydralazine 50 mg tablet 50 mg PO TID RenaPlex-D 800 mcg-12.5 mg -2,000 unit tablet 1 tab PO QPM Discharge Orders: Discharge ED (Routine); Ordered 04/19/22 Ordered By: Pato Rivera Referrals: Mal Peres DO [Primary Care Provider] - Activity Restrictions/Additional Instructions: You are seen today with a complaint of shortness of breath. You are hyperventilating when you arrived. Labs are consistent with your underlying medical problems. Your oxygen saturation was normal. You are given Ativan orally for anxiety. Discharge home continue your same medications follow-up as previously prescribed. Coding Level of Care Code ED Vegetable Trimmer for Cristi Diane
[2022-04-19 09:12] LABS: Basophils # 0.1 10^3/uL (0.0-0.1); Basophils % 1.6 %; Eosinophils # 0.3 10^3/uL (0.0-0.8); Eosinophils % 6.8 %; Hematocrit 32.9 % (42.0-52.0); Hemoglobin 10.4 g/dL (11.7-16.6); Lymphocytes # 0.6 10^3/uL (0.8-4.8); Lymphocytes % 16.8 %; Mean Corpuscular HGB Conc 31.6 g/dL (30.0-36.0); Mean Corpuscular Hemoglobin 27.9 pg (28.0-34.0); Mean Corpuscular Volume 88.2 fl (80-94); Mean Platelet Volume 9.6 fL (7.4-10.4); Monocytes # 0.4 10^3/uL (0.2-0.9); Neutrophils # 2.39 10^3/uL (1.8-7.7); Neutrophils % 64.5 %; Nucleated Red Blood Cells % 0 %; Platelet Count 287 10^3/cmm (130-400); Red Blood Count 3.73 10^6/uL (4.1-5.3); Red Cell Distribution Width 20.1 % (12.1-15.1); White Blood Count 3.7 10^3/uL (4.0-10.0)
[2022-04-19 09:14] VITALS: BP 182/126; PULSE 85; RESP 23; O2SAT 96
[2022-04-19] MEDS: LORazepam 2 mg Tablet PO (09:14)
[2022-04-19 09:30] LABS: Alanine Aminotransferase 8 U/L (0-41); Albumin Level 4.2 g/dL (3.5-5.2); Alkaline Phosphatase 159 U/L (40-130); Anion Gap 18.9 (5-19); Aspartate Amino Transferase 16 U/L (0-40); Blood Urea Nitrogen 20 mg/dL (6-20); Calcium 9.9 mg/dL (8.5-10.5); Carbon Dioxide 32 mmol/L (22-29); Chloride 91 mmol/L (98-107); Globulin 3.1 g/dL (1.3-4.6); Glucose 87 mg/dL (65-115); Osmolality Calculated 286 mOsm/kg (285-295); Potassium 4.9 mmol/L (3.5-5.1); Sodium 137 mmol/L (136-145); Total Bilirubin 0.6 mg/dL (0.15-1.2); Total Protein 7.3 g/dL (6.6-8.7)
[2022-04-19] MEDS: hyDRALAzine 25 mg Tablet 50 MG PO (11:10)
[2022-04-19] MEDS: lisinopril 20 mg Tablet 40 MG PO (11:10)
[2022-04-19] MEDS: isosorbide mononitrate ER 60 mg Tablet PO (11:10)
[2022-04-19] MEDS: carvedilol 25 mg Tablet PO (11:10)
[2022-04-19] MEDS: amlodipine 10 mg Tablet PO (11:10)
[2022-04-19 11:15] VITALS: BP 206/120; PULSE 87; RESP 21; O2SAT 94
[2022-04-19 11:24] VITALS: BP 210/120
[2022-04-19 11:57] VITALS: BP 185/116; PULSE 84; RESP 26
[2022-04-19 12:14] VITALS: BP 185/116; PULSE 84; RESP 26; TEMP 37.1; O2SAT 94
== END 2022-04-19 12:11 | disposition home or self-care (01) ==
PROVIDERS: Emergency Provider Family Medicine; PCP Family Medicine
DX: F41.9 Anxiety disorder, unspecified (principal); I13.2 Hypertensive heart and chronic kidney disease with heart failure and with stage 5 chronic kidney disease, or end stage renal disease; N18.6 End stage renal disease; I50.9 Heart failure, unspecified; Z99.2 Dependence on renal dialysis; I25.10 Atherosclerotic heart disease of native coronary artery without angina pectoris; J44.9 Chronic obstructive pulmonary disease, unspecified; F17.210 Nicotine dependence, cigarettes, uncomplicated
CPT/HCPCS: 71045; 80053; 85025; 99284

== ENCOUNTER 2022-04-19 17:57 | Emergency (ER) | payer MEDICARE, MEDICAID, SELFPAY ==
[2022-04-19 18:14] VITALS: BP 178/103; PULSE 75; RESP 20; TEMP 36.7; O2SAT 91; BMI 23.1
--- NOTE | 2022-04-19 18:24 | ED_ITS ---
HPI - General Adult General: Chief complaint: General Medical Stated complaint: SOB Time Seen by Provider: 04/19/22 18:24 History of Present Illness: 41-year-old male patient comes in today for complaints of feeling strange since being discharged this morning. Patient has end-stage renal disease, anxiety, CHF, nicotine dependence, atherosclerosis. Patient appears chronically ill. Patient appears anxious. Associated symptoms: Deny chest pain Review of Systems Const: Denies: fever(s) Card: Denies: chest pain Psych: Reports: anxiety PFSH ED PFSH: Medical History (HFpEF) heart failure with preserved ejection fraction Abdominal ascites Abdominal distention Abnormality of rib determined by X-ray Acute and chronic respiratory failure with hypoxia Acute diastolic CHF (congestive heart failure) Anasarca Anemia Anxiety with depression Arteriovenous fistula for hemodialysis in place, secondary Ascites Atherosclerosis of coronary artery Chronic abdominal pain Chronic respiratory failure CKD (chronic kidney disease) stage 5, GFR less than 15 ml/min Congestive heart failure COPD (chronic obstructive pulmonary disease) COPD (chronic obstructive pulmonary disease) COPD (chronic obstructive pulmonary disease) COVID 05/25 Current smoker Degenerative disc disease, lumbar End stage renal disease End-stage renal disease needing dialysis End-stage renal disease on hemodialysis ESRD (end stage renal disease) ESRD on dialysis ESRD on dialysis Generalized anxiety disorder with panic attacks GERD without esophagitis Gross hematuria Hemoptysis Hepatomegaly Hyperkalemia Hypertension Hypertensive emergency Ileus PHT (pulmonary hypertension) Pneumonia Pulmonary embolism 09/21 Inconclusive for very tiny peripheral LEFT lower lobe pulmonary artery sub segmental emboli versus poor opacification. Right heart failure with reduced right ventricular function Smoking addiction Transaminitis Urethral stricture Surgical History H/O hand surgery Amputation right 2&3 fingers 2017 History of adenoidectomy Stented coronary artery Family History Father No problems noted. Other Hypertension Social History Smoking and tobacco status: current every day smoker cigarettes Packs smoked p er day: 1.5 Years cigarettes smoked: 21 [ Other cigarette details: started age 20, currently 0.5ppd ] Alcohol intake: never Marital status: Number of children: 3 Current occupational status: disabled History of recent travel: No Physical Exam Const: COMMON NORMALS: alert HENMT: COMMON NORMALS: normocephalic HEAD & SCALP: normocephalic Resp: COMMON NORMALS: normal respiratory effort and clear to auscultation bilaterally AUSCULTATION: clear to auscultation bilaterally Cardio: COMMON NORMALS: regular rate RATE: regular rate RHYTHM: abnormal rhythm Extremity: COMMON NORMALS: normal to inspection Neuro: SENSORIUM/ORIENTATION: Yes alert Skin: COMMON NORMALS: turgor normal GENERAL SKIN EXAM: turgor normal Course Vital Signs: Vital signs: Vital Signs Temperature 98.1 F 04/19/22 18:14 Pulse Rate 85 04/19/22 19:56 Respiratory Rate 16 04/19/22 19:56 Blood Pressure 151/97 04/19/22 19:56 Pulse Oximetry 94 04/19/22 19:56 Oxygen Delivery Me thod 04/19/22 18:49 MDM - General Adult Medical Decision Making 41-year-old male patient comes in today with feeling poorly. On exam re spirations are even lungs are clear to auscultation. Heart rate is irregular. No edema is noted in the extremities. Patient has mildly distended abdomen. Differential diagnosis includes but not limited to arrhythmia, anxiety, CHF, depression. EKG showed a normal sinus rhythm. CBC and CMP were unchanged from prior exam. No signs of infection were noted. Recommend follow-up with primary care for further instructions. Return to ED for new concerns. Lab Data 04/19/22 18:36 04/19/22 18:36 Laboratory Results WBC 3.5 10^3/uL (4.0-10.0) L 04/19/22 18:36 RBC 3.44 10^6/uL (4.1-5.3) L 04/19/22 18:36 Hgb 9.5 g/dL (11.7-16.6) L 04/19/22 18:36 Hct 30.4 % (42.0-52.0) L 04/19/22 18:36 MCV 88.4 fl (80-94) 04/19/22 18:36 MCH 27.6 pg (28.0-34.0) L 04/19/22 18:36 MCHC 31.3 g/dL (30.0-36.0) 04/19/22 18:36 RDW 20.1 % (12.1-15.1) H 04/19/22 18:36 Plt Count 273 10^3/cmm (130-400) 04/19/22 18:36 MPV 9.5 fL (7.4-10.4) 04/19/22 18:36 Neut % (Auto) 61.2 % 04/19/22 18:36 Lymph % (Auto) 18.7 % 04/19/22 18:36 [place] % (Auto) 11.8 % 04/19/22 18:36 Eos % (Auto) 6.6 % 04/19/22 18:36 Baso % (Auto) 1.7 % 04/19/22 18:36 Neut # (Auto) 2.13 10^3/uL (1.8-7.7) 04/19/22 18:36 Lymph # (Auto) 0.7 10^3/uL (0.8-4.8) L 04/19/22 18:36 [place] # (Auto) 0.4 10^3/uL (0.2-0.9) 04/19/22 18:36 Eos # (Auto) 0.2 10^3/uL (0.0-0.8) 04/19/22 18:36 Baso # (Auto) 0.1 10^3/uL (0.0-0.1) 04/19/22 18:36 Nucleated RBC % (auto) 0 % 04/19/22 18:36 Nucleated RBCs # 0.0 /100WBC 04/19/22 18:36 Sodium 135 mmol/L (136-145) L 04/19/22 18:36 Potassium 5.1 mmol/L (3.5-5.1) 04/19/22 18:36 Chloride 93 mmol/L (98-107) L 04/19/22 18:36 Carbon Dioxide 33 mmol/L (22-29) H 04/19/22 18:36 Anion Gap 14.1 (5-19) 04/19/22 18:36 BUN 26 mg/dL (6-20) H 04/19/22 18:36 Creatinine 5.5 mg/dL (0.7-1.2) H 04/19/22 18:36 GFR Calculation 11.6 mL/min (90-130) L 04/19/22 18:36 Glucose 78 mg/dL (65-115) 04/19/22 18:36 Calculated Osmolality 284 mOsm/kg (285-295) L 04/19/22 18:36 Calcium 9.6 mg/dL (8.5-10.5) 04/19/22 18:36 Total Bilirubin 0.8 mg/dL (0.15-1.2) 04/19/22 18:36 AST 14 U/L (0-40) 04/19/22 18:36 ALT 9 U/L (0-41) 04/19/22 18:36 Alkaline Phosphatase 132 U/L (40-130) H 04/19/22 18:36 Total Protein 6.9 g/dL (6.6-8.7) 04/19/22 18:36 Albumin 3.5 g/dL (3.5-5.2) 04/19/22 18:36 Globulin 3.4 g/dL (1.3-4.6) 04/19/22 18:36 EKG Data EKG 1: EKG interpretation date: 04/19/22 EKG interpretation time: 18:46 Prior EKG tracings: not available for review Interpretation: EKG shows a sinus rhythm with a regular rate at [address] elevation is noted. No other ectopy is noted. No prior exam was available for comparison. Discharge Plan Discharge Patient Disposition: Home Clinical Impression: Complaint of debility and malaise, ESRD on dialysis Condition: Stable Prescriptions: No Action Xifaxan 550 mg tablet 550 mg PO BID Qty: 60 2RF Incruse Ellipta 62.5 mcg/actuation blister with device 1 inh INHALATION DAILY Qty: 30 2RF clonazepam 0.5 mg tablet 0.5 mg PO BEDTIME Qty: 30 0RF quetiapine 25 mg tablet 25 mg PO DAILY Qty: 90 0RF cyclobenzaprine 10 mg tablet 10 mg PO Q12H PRN (Reason: muscle spasm) Qty: 30 2RF nitroglycerin 0.4 mg tablet, sublingual 0.4 mg SUBLINGUAL Q5M PRN (Reason: Chest Pain) Qty: 30 5RF Rx Instructions: do not exceed 3 doses per episode clopidogrel 75 mg tablet 75 mg PO DAILY Qty: 90 3RF (DME) DME - BIPAP See Rx Instructions .Route .MEDSUPPLY Qty: 1 0RF Rx Instructions: Inspiratory Pressure: 16mmHg Expiratory Pressure: 8 mmHg Will need oxygen bled in to the machine to maintain sats >/= 90%. (DME) DME - Oxygen See Rx Instructions .Route .MEDSUPPLY Qty: 1 0RF Rx Instructions: Supplemental Oxygen bled into BIPAP at 2-3L to maintain oxygen sats at >/= 90%. carvedilol 25 mg tablet 25 mg PO BID 30 Days Qty: 60 0RF isosorbide mononitrate 60 mg tablet extended release 24 hr 60 mg PO DAILY lisinopril 40 mg Tablet 40 mg PO DAILY lactulose 20 gram/30 mL Solution 10 g PO TID PRN (Reason: Constipation) Auryxia 210 mg iron Tablet 420 mg PO TID Rx Instructions: administer with a meal minoxidil 2.5 mg Tablet 2.5 mg PO BID aspirin 81 mg tablet,delayed release (DR/EC) 81 mg PO DAILY amlodipine 10 mg tablet 10 mg PO BEDTIME pantoprazole 40 mg tablet,delayed release (DR/EC) 40 mg PO DAILY albuterol sulfate 90 mcg/actuation HFA aerosol inhaler 2 puff inhalation Q6H PRN (Reason: Shortness Of Breath Or Wheezing) clonidine HCl 0.2 mg tablet 0.2 mg PO TID hydralazine 50 mg tablet 50 mg PO TID RenaPlex-D 800 mcg-12.5 mg -2,000 unit tablet 1 tab PO QPM Discharge Orders: Discharge ED (Routine); Ordered 04/19/22 Ordered By: Zan Bailey Referrals: Mal Peres DO [Primary Care Provider] - Discharge Diet: Usual diet Discharge Activity: Increase activity as tolerated Activity Restrictions/Additional Instructions: Home and rest. Hold clonazepam tonight. Continue routine medications tomorrow. Follow-up with primary care as needed. Return to ED for fever greater than 100.4, worsening shortness of breath, or new concerns. Coding Level of Care Code ED Packaging Machine Operator for Cristi Fwd Exam Detailed
--- NOTE | 2022-04-19 18:31 | ECG_ITS ---
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
[2022-04-19] MEDS: LORazepam 1 mg Tablet PO (18:47)
[2022-04-19 18:49] VITALS: BP 154/109; PULSE 80; RESP 20; O2SAT 92
[2022-04-19 19:04] LABS: Basophils # 0.1 10^3/uL (0.0-0.1); Basophils % 1.7 %; Eosinophils # 0.2 10^3/uL (0.0-0.8); Eosinophils % 6.6 %; Hematocrit 30.4 % (42.0-52.0); Hemoglobin 9.5 g/dL (11.7-16.6); Lymphocytes # 0.7 10^3/uL (0.8-4.8); Lymphocytes % 18.7 %; Mean Corpuscular HGB Conc 31.3 g/dL (30.0-36.0); Mean Corpuscular Hemoglobin 27.6 pg (28.0-34.0); Mean Corpuscular Volume 88.4 fl (80-94); Mean Platelet Volume 9.5 fL (7.4-10.4); Monocytes # 0.4 10^3/uL (0.2-0.9); Monocytes % 11.8 %; Neutrophils # 2.13 10^3/uL (1.8-7.7); Neutrophils % 61.2 %; Nucleated Red Blood Cells % 0 %; Platelet Count 273 10^3/cmm (130-400); Red Blood Count 3.44 10^6/uL (4.1-5.3); Red Cell Distribution Width 20.1 % (12.1-15.1); White Blood Count 3.5 10^3/uL (4.0-10.0)
[2022-04-19 19:22] LABS: Alanine Aminotransferase 9 U/L (0-41); Albumin Level 3.5 g/dL (3.5-5.2); Alkaline Phosphatase 132 U/L (40-130); Anion Gap 14.1 (5-19); Aspartate Amino Transferase 14 U/L (0-40); Blood Urea Nitrogen 26 mg/dL (6-20); Calcium 9.6 mg/dL (8.5-10.5); Carbon Dioxide 33 mmol/L (22-29); Chloride 93 mmol/L (98-107); Globulin 3.4 g/dL (1.3-4.6); Glomerular Filtration Rate 11.6 mL/min (90-130); Glucose 78 mg/dL (65-115); Osmolality Calculated 284 mOsm/kg (285-295); Potassium 5.1 mmol/L (3.5-5.1); Sodium 135 mmol/L (136-145); Total Bilirubin 0.8 mg/dL (0.15-1.2); Total Protein 6.9 g/dL (6.6-8.7)
[2022-04-19 19:56] VITALS: BP 151/97; PULSE 85; RESP 16; O2SAT 94
== END 2022-04-19 19:57 | disposition home or self-care (01) ==
PROVIDERS: Emergency Provider Nurse Practitioner Family; PCP Family Medicine
DX: R53.81 Other malaise (principal); I13.2 Hypertensive heart and chronic kidney disease with heart failure and with stage 5 chronic kidney disease, or end stage renal disease; N18.6 End stage renal disease; I50.9 Heart failure, unspecified; Z99.2 Dependence on renal dialysis; I25.10 Atherosclerotic heart disease of native coronary artery without angina pectoris; J44.9 Chronic obstructive pulmonary disease, unspecified; F17.210 Nicotine dependence, cigarettes, uncomplicated; Z79.82 Long term (current) use of aspirin; Z79.02 Long term (current) use of antithrombotics/antiplatelets
CPT/HCPCS: 36415; 71045; 80053; 85025; 93005; 99284

== ENCOUNTER 2022-04-20 22:34 | Emergency (ER) | payer MEDICARE, MEDICAID, SELFPAY ==
[2022-04-20 22:58] VITALS: BP 200/112; PULSE 87; RESP 27; TEMP 37.3; O2SAT 90; BMI 22.1
[2022-04-20 23:59] LABS: Basophils % 0.9 %; Eosinophils # 0.2 10^3/uL (0.0-0.8); Eosinophils % 4.3 %; Hemoglobin 9.1 g/dL (11.7-16.6); Lymphocytes # 0.7 10^3/uL (0.8-4.8); Lymphocytes % 16.3 %; Mean Corpuscular HGB Conc 31.4 g/dL (30.0-36.0); Mean Corpuscular Hemoglobin 27.4 pg (28.0-34.0); Mean Corpuscular Volume 87.3 fl (80-94); Mean Platelet Volume 9.6 fL (7.4-10.4); Monocytes # 0.4 10^3/uL (0.2-0.9); Monocytes % 8.8 %; Neutrophils # 3.07 10^3/uL (1.8-7.7); Neutrophils % 69.5 %; Nucleated Red Blood Cells % 0 %; Platelet Count 291 10^3/cmm (130-400); Red Blood Count 3.32 10^6/uL (4.1-5.3); Red Cell Distribution Width 20.4 % (12.1-15.1); White Blood Count 4.4 10^3/uL (4.0-10.0)
[2022-04-21] VITALS (8 sets, daily range): BP systolic 96–195; BP diastolic 63–128; PULSE 60–83; RESP 15–26; O2SAT 92–96
[2022-04-21 00:07] LABS: Lactate (Lactic Acid level) 0.5 mmol/L (0.5-2.2)
[2022-04-21 00:08] LABS: Alanine Aminotransferase 7 U/L (0-41); Albumin Level 3.7 g/dL (3.5-5.2); Alkaline Phosphatase 127 U/L (40-130); Anion Gap 17.2 (5-19); Aspartate Amino Transferase 11 U/L (0-40); Blood Urea Nitrogen 40 mg/dL (6-20); C Reactive Protein 52.9 mg/L (0.0-4.9); Calcium 9.7 mg/dL (8.5-10.5); Carbon Dioxide 31 mmol/L (22-29); Chloride 90 mmol/L (98-107); Globulin 3.3 g/dL (1.3-4.6); Glomerular Filtration Rate 7.9 mL/min (90-130); Glucose 91 mg/dL (65-115); Lipase 26 U/L (13-60); Osmolality Calculated 285 mOsm/kg (285-295); Potassium 5.2 mmol/L (3.5-5.1); Sodium 133 mmol/L (136-145); Total Bilirubin 0.7 mg/dL (0.15-1.2)
[2022-04-21] MEDS: ondansetron 2 mg/ML SDV 2 mL 4 MG IVP (00:10)
[2022-04-21] MEDS: fentaNYL 50 mcg/mL INJ 2mL 75 MCG IVP ×2 (00:12→02:35)
--- NOTE | 2022-04-21 00:58 | W.ED.ABDPA2 ---
HPI - Abdominal Pain General: Chief Complaint: Abdominal Pain Stated Complaint: stomach pain Time Seen by Provider: 04/20/22 23:07 Source: patient History of Present Illness: 41-year-old male well-known to the ER service. This is his third time visiting in 36 hours. He presents with abdominal pain. He notes that while coughing, he felt an intense pain in his umbilical region. He says that he has never felt pain like that. He has had ascites in the past, and fullness in his belly, but this is entirely different he says. He said he does not usually have an outie type bellybutton but now does. MD elicited complaint: abdominal pain Onset (ago): hour(s) Location: Periumbilical Severity: moderate Quality: stabbing Migration to: no migration Exacerbating factors: other (Cough and) Relieving factors: nothing Associated Symptoms: Denies constipation, diarrhea, dysuria, fever(s), hematochezia and vomiting Review of Systems Const: Denies: fever(s) Card: Denies: chest pain Resp: Reports: dyspnea; Denies: productive cough or non-productive cough GI: Denies: vomiting, diarrhea, constipation or hematochezia : Denies: dysuria Psych: Reports: anxiety PFSH ED PFSH: Medical History (HFpEF) heart failure with preserved ejection fraction Abdominal ascites Abdominal distention Abnormality of rib determined by X-ray Acute and chronic respiratory failure with hypoxia Acute diastolic CHF (congestive heart failure) Anasarca Anemia Anxiety with depression Arteriovenous fistula for hemodialysis in place, secondary Ascites Atherosclerosis of coronary artery Chronic abdominal pain Chronic respiratory failure CKD (chronic kidney disease) stage 5, GFR less than 15 ml/min Congestive heart failure COPD (chronic obstructive pulmonary disease) COPD (chronic obstructive pulmonary disease) COPD (chronic obstructive pulmonary disease) COVID 05/25 Current smoker Degenerative disc disease, lumbar End stage renal disease End-stage renal disease needing dialysis End-stage renal disease on hemodialysis ESRD (end stage renal disease) ESRD on dialysis ESRD on dialysis Generalized anxiety disorder with panic attacks GERD without esophagitis Gross hematuria Hemoptysis Hepatomegaly Hyperkalemia Hypertension Hypertensive emergency Ileus PHT (pulmonary hypertension) Pneumonia Pulmonary embolism 09/21 Inconclusive for very tiny peripheral LEFT lower lobe pulmonary artery sub segmental emboli versus poor opacification. Right heart failure with reduced right ventricular function Smoking addiction Transaminitis Urethral stricture Surgical History H/O hand surgery Amputation right 2&3 fingers 2017 History of adenoidectomy Stented coronary artery Family History Father No problems noted. Other Hypertension Social History Smoking and tobacco status: current every day smoker cigarettes Packs smoked per day: 1.5 Years cigarettes smoked: 21 [ Other cigarette details: started age 20, currently 0.5ppd ] Alcohol intake: never Marital status: Number of children: 3 Current occupational status: disabled History of recent travel: No Physical Exam Const: GENERAL APPEARANCE: cooperative NUTRITIONAL APPEARANCE: other ORIENTATION/CONSCIOUSNESS: Yes awake, Yes oriented to person and Yes oriented to time HENMT: COMMON NORMALS: normocephalic, atraumatic and Normal external nose present HEAD & SCALP: normocephalic and atraumatic NOSE: Normal external nose present Eye: COMMON NORMALS: Equal, round and reactive pupils present and EOMs intact bilaterally PUPIL: Yes Equal, round and reactive pupils present Chest: CHEST: Yes Symmetrical chest wall rise Resp: COMMON NORMALS: clear to auscultation bilaterally EFFORT & INSPECTION: Yes tachypneic AUSCULTATION: clear to auscultation bilaterally Cardio: COMMON NORMALS: regular rate and regular rhythm RATE: regular rate RHYTHM: regular rhythm GI: COMMON NORMALS: Soft to palpation INSPECTION: Yes abdominal distension (mild) PALPATION: Yes Soft to palpation OTHER: Umbilical herniation present that is hard by palpation, and quite tender. No warmth. Extremity: COMMON NORMALS: no pedal edema Neuro: SENSORIUM/ORIENTATION: Yes oriented to person and Yes oriented to time Skin: NARRATIVE SKIN EXAM: Healing paracentesis wound left lower abdomen. Procedures Procedural Sedation Indication: other (Hernia reduction) ASA Class: IV Preparation: hospital monitor applied, pulse oximeter, supplemental O2 applied, suction/airway equipment at bedside and IV secured IV Propofol dose (mg): 100 Patient Tolerated Procedure: no complications Complications: none Additional Comments: 100 mg total propofol used in increments of 20 mg. No complications. Course Vital Signs: Vital signs: Vital Signs Temperature 99.1 F 12/18/22 22:58 Pulse Rate 78 04/21/22 01:30 Respiratory Rate 20 H 04/21/22 02:35 Blood Pressure 185/98 04/21/22 01:30 Pulse Oximetry 94 04/21/22 01:30 Oxygen Delivery Me thod 04/21/22 01:30 Oxygen Flow Rate 3 04/21/22 01:30 MDM - Abdominal Pain Medical Decision Making Patient has a umbilical hernia that appeared incarcerated. It is quite tender to touch. Patient was given fentanyl and attempt was made to reduce, without success. Patient brought to the trauma room, and under conscious sedation hernia was reduced by about 80% in size. It is now soft. platinum and palladium kettle tender. CT is pending. His laboratory is stable. CT shows no bowel obstruction. No definite strangulation of bowel within that hernia. It now appears stable from his CT on 03/28. His symptoms are improved although he sanding machine tender automatic. He was counseled on this. He has been hypertensive here, which is not abnormal for him. He has dialysis later today. He will be allowed discharge. Lab Data 04/20/22 23:18 04/20/22 23:18 Labs/Radiology: Radiology Impressions Abdomen/Pelvis CT 04/21/22 01:22 IMPRESSION: 1. Small right pleural effusion and bibasilar opacities which may represent atelectasis, aspiration, inflammation, or infection. 2. Cardiomegaly and small pericardial effusion. 3. Hepatomegaly and hepatic congestion. 4. Bilateral renal atrophy. 5. Large amount of ascites. 6. Vascular atherosclerosis. Laboratory Results WBC 4.4 10^3/uL (4.0-10.0) 04/20/22 23:18 RBC 3.32 10^6/uL (4.1-5.3) L 04/20/22 23:18 Hgb 9.1 g/dL (11.7-16.6) L 04/20/22 23:18 Hct 29.0 % (42.0-52.0) L 04/20/22 23:18 MCV 87.3 fl (80-94) 04/20/22 23:18 MCH 27.4 pg (28.0-34.0) L 04/20/22 23:18 MCHC 31.4 g/dL (30.0-36.0) 04/20/22 23:18 RDW 20.4 % (12.1-15.1) H 04/20/22 23:18 Plt Count 291 10^3/cmm (130-400) 04/20/22 23:18 MPV 9.6 fL (7.4-10.4) 04/20/22 23:18 Neut % (Auto) 69.5 % 04/20/22 23:18 Lymph % (Auto) 16.3 % 04/20/22 23:18 [place] % (Auto) 8.8 % 04/20/22 23:18 Eos % (Auto) 4.3 % 04/20/22 23:18 Baso % (Auto) 0.9 % 04/20/22 23:18 Neut # (Auto) 3.07 10^3/uL (1.8-7.7) 04/20/22 23:18 Lymph # (Auto) 0.7 10^3/uL (0.8-4.8) L 04/20/22 23:18 [place] # (Auto) 0.4 10^3/uL (0.2-0.9) 04/20/22 23:18 Eos # (Auto) 0.2 10^3/uL (0.0-0.8) 04/20/22 23:18 Baso # (Auto) 0.0 10^3/uL (0.0-0.1) 04/20/22 23:18 Nucleated RBC % (auto) 0 % 04/20/22 23:18 Nucleated RBCs # 0.0 /100WBC 04/20/22 23:18 Sodium 133 mmol/L (136-145) L 04/20/22 23:18 Potassium 5.2 mmol/L (3.5-5.1) H 04/20/22 23:18 Chloride 90 mmol/L (98-107) L 04/20/22 23:18 Carbon Dioxide 31 mmol/L (22-29) H 04/20/22 23:18 Anion Gap 17.2 (5-19) 04/20/22 23:18 BUN 40 mg/dL (6-20) H 04/20/22 23:18 Creatinine 7.7 mg/dL (0.7-1.2) H* 04/20/22 23:18 GFR Calculation 7.9 mL/min (90-130) L 04/20/22 23:18 Glucose 91 mg/dL (65-115) 04/20/22 23:18 Calculated Osmolality 285 mOsm/kg (285-295) 04/20/22 23:18 Lactate 0.5 mmol/L (0.5-2.2) 04/20/22 23:18 Calcium 9.7 mg/dL (8.5-10.5) 04/20/22 23:18 Total Bilirubin 0.7 mg/dL (0.15-1.2) 04/20/22 23:18 AST 11 U/L (0-40) 04/20/22 23:18 ALT 7 U/L (0-41) 04/20/22 23:18 Alkaline Phosphatase 127 U/L (40-130) 04/20/22 23:18 C-Reactive Protein 52.9 mg/L (0.0-4.9) H 04/20/22 23:18 Total Protein 7.0 g/dL (6.6-8.7) 04/20/22 23:18 Albumin 3.7 g/dL (3.5-5.2) 04/20/22 23:18 Globulin 3.3 g/dL (1.3-4.6) 04/20/22 23:18 Lipase 26 U/L (13-60) 04/20/22 23:18 Discharge Plan Discharge Patient Disposition: Home Clinical Impression: ESRD on dialysis Hernia, umbilical Qualifiers: Obstruction and gangrene presence: without obstruction or gangrene Qualified Code(s): K42.9 - Umbilical hernia without obstruction or gangrene Condition: Stable Prescriptions: No Action Xifaxan 550 mg tablet 550 mg PO BID Qty: 60 2RF Incruse Ellipta 62.5 mcg/actuation blister with device 1 inh INHALATION DAILY Qty: 30 2RF clonazepam 0.5 mg tablet 0.5 mg PO BEDTIME Qty: 30 0RF quetiapine 25 mg tablet 25 mg PO DAILY Qty: 90 0RF cyclobenzaprine 10 mg tablet 10 mg PO Q12H PRN (Reason: muscle spasm) Qty: 30 2RF nitroglycerin 0.4 mg tablet, sublingual 0.4 mg SUBLINGUAL Q5M PRN (Reason: Chest Pain) Qty: 30 5RF Rx Instructions: do not exceed 3 doses per episode clopidogrel 75 mg tablet 75 mg PO DAILY Qty: 90 3RF (DME) DME - BIPAP See Rx Instructions .Route .MEDSUPPLY Qty: 1 0RF Rx Instructions: Inspiratory Pressure: 16mmHg Expiratory Pressure: 8 mmHg Will need oxygen bled in to the machine to maintain sats >/= 90%. (DME) DME - Oxygen See Rx Instructions .Route .MEDSUPPLY Qty: 1 0RF Rx Instructions: Supplemental Oxygen bled into BIPAP at 2-3L to maintain oxygen sats at >/= 90%. carvedilol 25 mg tablet 25 mg PO BID 30 Days Qty: 60 0RF isosorbide mononitrate 60 mg tablet extended release 24 hr 60 mg PO DAILY lisinopril 40 mg Tablet 40 mg PO DAILY lactulose 20 gram/30 mL Solution 10 g PO TID PRN (Reason: Constipation) Auryxia 210 mg iron Tablet 420 mg PO TID Rx Instructions: administer with a meal minoxidil 2.5 mg Tablet 2.5 mg PO BID aspirin 81 mg tablet,delayed release (DR/EC) 81 mg PO DAILY amlodipine 10 mg tablet 10 mg PO BEDTIME pantoprazole 40 mg tablet,delayed release (DR/EC) 40 mg PO DAILY albuterol sulfate 90 mcg/actuation HFA aerosol inhaler 2 puff inhalation Q6H PRN (Reason: Shortness Of Breath Or Wheezing) clonidine HCl 0.2 mg tablet 0.2 mg PO TID hydralazine 50 mg tablet 50 mg PO TID RenaPlex-D 800 mcg-12.5 mg -2,000 unit tablet 1 tab PO QPM Discharge Orders: Discharge ED (Routine); Ordered 04/21/22 Ordered By: Jose Ward Referrals: Mal Peres DO [Primary Care Provider] - 4-7 days Patient Instructions: Opioid Safety, Pain Management Activity Restrictions/Additional Instructions: Attend dialysis later today as scheduled. Return for fever greater than 100, worsening belly pain, vomiting, any other concerning symptoms. Follow-up with surgery as directed as well. Coding Level of Care Code ED Insole Tack Puller Hand for Chg Fwd Exam Comprehensive
[2022-04-21] MEDS: propofol 10 mg/mL SDV 20 mL IVP (01:05)
--- NOTE | 2022-04-21 01:22 | CTR_ITS ---
PROCEDURE INFORMATION: Exam: CT Abdomen And Pelvis Without Contrast Exam date and time: 04/21/2022 1:30 AM Age: 41 years old Clinical indication: Abdominal pain; Periumbilical; Additional info: Periumb abd pain. Hernia? TECHNIQUE: Imaging protocol: Computed tomography of the abdomen and pelvis without contrast. Radiation optimization: All CT scans at this facility use at least one of these dose optimization techniques: automated exposure control; mA and/or kV adjustment per patient size (includes targeted exams where dose is matched to clinical indication); or iterative reconstruction. COMPARISON: CT abdomen pelvis wo con [id number] 03/28/2022 2:36 PM RADIATION DOSE METRICS: Total DLP (mGy-cm): 512.47 FINDINGS: Lungs: Patchy airspace opacities in the right lower lobe may represent aspiration or pneumonia. Minimal similar changes are noted in the left lung base. Bibasilar opacities, likely atelectasis. Pleural spaces: Small right pleural effusion is noted. Heart: There is cardiomegaly and the trace volume of pericardial effusion. Liver: No hepatic focal lesions. There is hepatomegaly and dilation of the hepatic veins. Gallbladder and bile ducts: The gallbladder is contracted and not well visualized. Pancreas: The pancreas is stable in appearance. Spleen: The spleen is normal. Adrenal glands: The adrenal glands appear grossly unremarkable. Kidneys and ureters: Severe atrophy of the left kidney. No hydronephrosis or renal stones. Severe atrophy of the right kidney. No hydronephrosis or renal stones. Stomach and bowel: Thickening of the gastric chisholm. Mild thickening of the small bowel chisholm which are distended with fluid. Mild wall thickening of the colon. No evidence of intestinal obstruction. Appendix: The appendix can not be well visualized. Intraperitoneal space: Large amount of free ascites is again noted. Vasculature: There are atherosclerotic calcifications of the abdominal aorta and its branches. Lymph nodes: Unremarkable. No enlarged lymph nodes. Urinary bladder: The urinary bladder is completely collapsed. Reproductive: Unremarkable as visualized. Bones/joints: There are degenerative changes of the SI joints. Grade 1 anterolisthesis of L5 on S1 with bilateral L5 pars interarticularis defects. Soft tissues: Unremarkable. CT/CT abdomen pelvis wo con [id number] IMPRESSION: 1. Small right pleural effusion and bibasilar opacities which may represent atelectasis, aspiration, inflammation, or infection. 2. Cardiomegaly and small pericardial effusion. 3. Hepatomegaly and hepatic congestion. 4. Bilateral renal atrophy. 5. Large amount of ascites. 6. Vascular atherosclerosis.
== END 2022-04-21 03:25 | disposition home or self-care (01) ==
PROVIDERS: Emergency Provider Emergency Medicine; PCP Family Medicine
DX: K42.9 Umbilical hernia without obstruction or gangrene (principal); I13.2 Hypertensive heart and chronic kidney disease with heart failure and with stage 5 chronic kidney disease, or end stage renal disease; I50.31 Acute diastolic (congestive) heart failure; N18.6 End stage renal disease; Z99.2 Dependence on renal dialysis; I25.10 Atherosclerotic heart disease of native coronary artery without angina pectoris; J44.9 Chronic obstructive pulmonary disease, unspecified; F17.210 Nicotine dependence, cigarettes, uncomplicated; Z79.02 Long term (current) use of antithrombotics/antiplatelets; Z79.82 Long term (current) use of aspirin
CPT/HCPCS: 74176; 80053; 83605; 83690; 85025; 86140; 96374; 96375; 96376; 99285; J2405; J2704; J3010

== ENCOUNTER 2022-04-22 00:08 | Emergency (ER) | payer MEDICARE, MEDICAID, SELFPAY ==
[2022-04-22 00:10] VITALS: BMI 22.4
[2022-04-22 00:13] VITALS: BP 208/118; PULSE 76; RESP 17; TEMP 37.1; O2SAT 97
--- NOTE | 2022-04-22 00:16 | W.ED.ABDPA2 ---
HPI - Abdominal Pain General: Chief Complaint: Abdominal Pain Stated Complaint: groin/abd pain Time Seen by Provider: 04/22/22 00:11 Source: patient and EMS Mode of arrival: EMS Limitations: no limitations History of Present Illness: 41-year-old male who is very well-known to ER has history end-stage renal disease on dialysis he did receive dialysis today patient was seen last night for hernia that was reduced he states he coughed today and is hernia popped back out he is having abdominal pain from the hernia. He rates his pain a 6 out of 10 he has no other complaints at this time. He is hypertensive here patient is chronically hypertensive. Associated Symptoms: Denies chills, dysuria and fever(s) Review of Systems Const: Denies: fever(s), chills, body aches or change in appetite Eyes: Denies: blurry vision or eye discomfort ENMT: Denies: throat pain or dental pain Card: Denies: chest pain Resp: Denies: dyspnea GI: Reports: abdominal pain : Denies: dysuria Musc: Denies: neck pain or back pain Skin/Breast: Denies: rash Neuro: Denies: headache(s) Psych: Denies: depression [place]/Lymph: Denies: easy bruising All/Imm: Denies: urticaria PFSH ED PFSH: Medical History (HFpEF) heart failure with preserved ejection fraction Abdominal ascites Abdominal distention Abnormality of rib determined by X-ray Acute and chronic respiratory failure with hypoxia Acute diastolic CHF (congestive heart failure) Anasarca Anemia Anxiety with depression Arteriovenous fistula for hemodialysis in place, secondary Ascites Atherosclerosis of coronary artery Chronic abdominal pain Chronic respiratory failure CKD (chronic kidney disease) stage 5, GFR less than 15 ml/min Congestive heart failure COPD (chronic obstructive pulmonary disease) COPD (chronic obstructive pulmonary disease) COPD (chronic obstructive pulmonary disease) COVID 05/25 Current smoker Degenerative disc disease, lumbar End stage renal disease End-stage renal disease needing dialysis End-stage renal disease on hemodialysis ESRD (end stage renal disease) ESRD on dialysis ESRD on dialysis Generalized anxiety disorder with panic attacks GERD without esophagitis Gross hematuria Hemoptysis Hepatomegaly Hyperkalemia Hypertension Hypertensive emergency Ileus PHT (pulmonary hypertension) Pneumonia Pulmonary embolism 09/21 Inconclusive for very tiny peripheral LEFT lower lobe pulmonary artery sub segmental emboli versus poor opacification. Right heart failure with reduced right ventricular function Smoking addiction Transaminitis Urethral stricture Surgical History H/O hand surgery Amputation right 2&3 fingers 2017 History of adenoidectomy Stented coronary artery Family History Father No problems noted. Other Hypertension Social History Smoking and tobacco status: current every day smoker cigarettes Packs smoked per day: 1.5 Years cigarettes smoked: 21 [ Other cigarette details: started age 20, currently 0.5ppd ] Alcohol intake: never Marital status: Number of children: 3 Current occupational status: disabled History of recent travel: No Physical Exam Const: COMMON NORMALS: no acute distress, patient oriented x3 and healthy appearing HENMT: COMMON NORMALS: normocephalic and atraumatic HEAD & SCALP: normocephalic and atraumatic Eye: COMMON NORMALS: Equal, round and reactive pupils present and EOMs intact bilaterally PUPIL: Yes Equal, round and reactive pupils present Neck/C-Spine: COMMON NORMALS: full ROM and supple Chest: COMMONS NORMALS: normal inspection of the chest and normal palpation of entire chest wall Resp: COMMON NORMALS: normal respiratory effort, No retractions, No use of accessory muscles and clear to auscultation bilaterally AUSCULTATION: clear to auscultation bilaterally Cardio: COMMON NORMALS: regular rate, regular rhythm and No murmurs present (Cardio) RATE: regular rate RHYTHM: regular rhythm GI: COMMON NORMALS: Normal to inspection, nondistended, normoactive bowel sounds present, Soft to palpation and non-tender PALPATION: Yes Soft to palpation OTHER: Umbilical hernia noted Extremity: COMMON NORMALS: normal to inspection and full ROM Neuro: COMMON NORMALS: patient oriented x3, moves all extremities and no focal motor deficits Psych: COMMON NORMALS: mental status grossly normal, Normal thought process present and cooperative THOUGHT PROCESS: Normal thought process present Skin: COMMON NORMALS: no rashes or lesions noted and no wounds GENERAL SKIN EXAM: no rashes or lesions noted Course Vital Signs: Vital signs: Vital Signs Temperature 98.8 F 04/22/22 00:13 Pulse Rate 87 04/22/22 02:10 Respiratory Rate 20 H 04/22/22 02:10 Blood Pressure 200/122 04/22/22 02:10 Pulse Oximetry 96 04/22/22 02:10 Oxygen Delivery Me thod 04/22/22 00:13 Oxygen Flow Rate 4 04/22/22 00:13 MDM - Abdominal Pain Medical Decision Making Patient presents here with abdominal pain he does have a hernia does not contain any bowel is not strangulated he is well-appearing here he stable for discharge. Lab Data Labs/Radiology: Radiology Impressions Abdomen/Pelvis CT 04/22/22 00:49 IMPRESSION: Intra-abdominal abnormalities noted previously have shown no appreciable change. Ascites appears similar. Bilateral renal atrophy. Hepatosplenomegaly. Pulmonary interstitial edema/congestion. Small fatty umbilical hernia contains ascites fluid. Discharge Plan Discharge Patient Disposition: Home Clinical Impression: Hernia, umbilical Condition: Stable Prescriptions: No Action Xifaxan 550 mg tablet 550 mg PO BID Qty: 60 2RF Incruse Ellipta 62.5 mcg/actuation blister with device 1 inh INHALATION DAILY Qty: 30 2RF clonazepam 0.5 mg tablet 0.5 mg PO BEDTIME Qty: 30 0RF quetiapine 25 mg tablet 25 mg PO DAILY Qty: 90 0RF cyclobenzaprine 10 mg tablet 10 mg PO Q12H PRN (Reason: muscle spasm) Qty: 30 2RF nitroglycerin 0.4 mg tablet, sublingual 0.4 mg SUBLINGUAL Q5M PRN (Reason: Chest Pain) Qty: 30 5RF Rx Instructions: do not exceed 3 doses per episode clopidogrel 75 mg tablet 75 mg PO DAILY Qty: 90 3RF (DME) DME - BIPAP See Rx Instructions .Route .MEDSUPPLY Qty: 1 0RF Rx Instructions: Inspiratory Pressure: 16mmHg Expiratory Pressure: 8 mmHg Will need oxygen bled in to the machine to maintain sats >/= 90%. (DME) DME - Oxygen See Rx Instructions .Route .MEDSUPPLY Qty: 1 0RF Rx Instructions: Supplemental Oxygen bled into BIPAP at 2-3L to maintain oxygen sats at >/= 90%. carvedilol 25 mg tablet 25 mg PO BID 30 Days Qty: 60 0RF isosorbide mononitrate 60 mg tablet extended release 24 hr 60 mg PO DAILY lisinopril 40 mg Tablet 40 mg PO DAILY lactulose 20 gram/30 mL Solution 10 g PO TID PRN (Reason: Constipation) Auryxia 210 mg iron Tablet 420 mg PO TID Rx Instructions: administer with a meal minoxidil 2.5 mg Tablet 2.5 mg PO BID aspirin 81 mg tablet,delayed release (DR/EC) 81 mg PO DAILY amlodipine 10 mg tablet 10 mg PO BEDTIME pantoprazole 40 mg tablet,delayed release (DR/EC) 40 mg PO DAILY albuterol sulfate 90 mcg/actuation HFA aerosol inhaler 2 puff inhalation Q6H PRN (Reason: Shortness Of Breath Or Wheezing) clonidine HCl 0.2 mg tablet 0.2 mg PO TID hydralazine 50 mg tablet 50 mg PO TID RenaPlex-D 800 mcg-12.5 mg -2,000 unit tablet 1 tab PO QPM Discharge Orders: Discharge ED (Routine); Ordered 04/22/22 Ordered By: Dayana Nunez Referrals: Mal Peres, [Primary Care Provider] - Discharge Diet: Advance as tolerated Discharge Activity: Resume usual activity Patient Instructions: Umbilical Hernia (ED) Coding Level of Care Code ED Linking Machine Operator for Chg Fwd Exam Comprehensive
[2022-04-22 00:36] VITALS: RESP 18
[2022-04-22] MEDS: morphine 4 mg/mL SDV 1 mL IM (00:36)
[2022-04-22] MEDS: midazolam 1 mg/mL INJ 2 mL IM (00:36)
--- NOTE | 2022-04-22 00:49 | CTR_ITS ---
PROCEDURE INFORMATION: Exam: CT Abdomen And Pelvis Without Contrast Exam date and time: 04/22/2022 12:56 AM Age: 41 years old Clinical indication: Abdominal pain; Prior surgery; Surgery type: Coronary stent; Patient HX: C/O periumbilical pain. History of umbilical hernia. TECHNIQUE: Imaging protocol: Computed tomography of the abdomen and pelvis without contrast. Radiation optimization: All CT scans at this facility use at least one of these dose optimization techniques: automated exposure control; mA and/or kV adjustment per patient size (includes targeted exams where dose is matched to clinical indication); or iterative reconstruction. COMPARISON: CT abdomen pelvis wo con [id number] 04/21/2022 1:30 AM RADIATION DOSE METRICS: Total DLP (mGy-cm): 462.99 FINDINGS: Lungs: Interstitial thickening at lung bases likely relates to edema/congestion. Parenchymal abnormalities suggested previously have decreased. Minimal bilateral pleural fluid. Heart: Stable mild cardiac prominence and small pericardial fluid. Liver: Hepatomegaly. No gross focal abnormalities. Gallbladder and bile ducts: Normal. No calcified stones. No ductal dilation. Pancreas: Normal. No ductal dilation. Spleen: Mild splenomegaly. A few calcified granulomatous findings are noted. Adrenal glands: Normal. No mass. Kidneys and ureters: Marked atrophy both kidneys. No hydronephrosis. Stomach and bowel: Unremarkable. No obstruction. No mucosal thickening. Appendix: No evidence of appendicitis. Intraperitoneal space: Ascites unchanged. Vasculature: Vascular calcifications are noted. No abdominal aortic aneurysm. Lymph nodes: Unremarkable. No enlarged lymph nodes. Urinary bladder: Unremarkable as visualized. Reproductive: Unremarkable as visualized. Bones/joints: Spondylolysis and grade 1 spondylolisthesis L5. Soft tissues: Small fatty umbilical hernia suggested with ascites fluid within the hernia. CT/CT kidney stone [id number] IMPRESSION: Intra-abdominal abnormalities noted previously have shown no appreciable change. Ascites appears similar. Bilateral renal atrophy. Hepatosplenomegaly. Pulmonary interstitial edema/congestion. Small fatty umbilical hernia contains ascites fluid.
[2022-04-22 02:10] VITALS: BP 200/122; PULSE 87; RESP 20; O2SAT 96
== END 2022-04-22 03:53 | disposition home or self-care (01) ==
PROVIDERS: Emergency Provider Emergency Medicine; PCP Family Medicine
DX: K42.9 Umbilical hernia without obstruction or gangrene (principal); F17.210 Nicotine dependence, cigarettes, uncomplicated; I12.0 Hypertensive chronic kidney disease with stage 5 chronic kidney disease or end stage renal disease; N18.6 End stage renal disease; Z99.2 Dependence on renal dialysis
CPT/HCPCS: 74176; 96372; 99284; J2250; J2270

== ENCOUNTER 2022-04-22 14:51 | Emergency (ER) | payer MEDICARE, MEDICAID, SELFPAY ==
[2022-04-22] VITALS (43 sets, daily range): BP systolic 155–257; BP diastolic 107–162; PULSE 69–105; RESP 19–40; O2SAT 66–98; BMI 22.4
--- NOTE | 2022-04-22 15:02 | XR_ITS ---
WS: [id number] Exam: XR chest 1V portable [id number] Date/Time of Exam: 04/22/2022 3:13 PM Reason For Exam: dyspnea/cough Comparison 04/19/2022. There is cardiac enlargement with focal pulmonary vascular engorgement suggesting CHF. The lungs are fully expanded. No significant pleural effusion is seen. Scattered nodular densities in both lungs un changed since prior study. The mediastinum is normal in contour. Bony structures are intact. XR/XR chest 1V portable [id number] IMPRESSION: 1. Cardiac enlargement with pulmonary vascular congestion suggesting early CHF. 2. Scattered nonspecific nodular densities in both lungs unchanged.
[2022-04-22] MEDS: LORazepam 2 mg Tablet PO (15:07)
[2022-04-22 15:18] LABS: ABG PCO2 47.8 mmHg (35-45); ABG PH Result 7.47 (7.35-7.45); Alveolar-Arterial Oxygen Gradi 5.1 mmHg (5-10); Arterial Blood Gas Hematocrit 30.9 % (42-52); Base Excess ABG 10.2 mmol/L (-2.0-2.0); Blood Gas Allen Test Pos; Blood Gas Operator Identificat WALCI; Blood Gas Sample Site Radial, right; Blood Gas Sample Type Arterial; HGB O2 Sat 86.5 % (95-100); Ionized Calcium Level - ABG 1.2 mmol/L (1.1-1.4); Methemoglobin 0.7 % (0.4-1.5); Oxygen Device NC; Oxygen Saturation ABG 89.9; PO2 ABG 54.3 mmHg (80.0-100.0); Potassium Level - ABG 5.3 mmol/L (3.5-5.0); Total Hemoglobin 10.1 g/dL (14-18)
[2022-04-22 15:28] LABS: Basophils # 0.1 10^3/uL (0.0-0.1); Eosinophils # 0.2 10^3/uL (0.0-0.8); Hematocrit 31.2 % (42.0-52.0); Hemoglobin 9.8 g/dL (11.7-16.6); Lymphocytes # 0.6 10^3/uL (0.8-4.8); Lymphocytes % 12.5 %; Mean Corpuscular HGB Conc 31.4 g/dL (30.0-36.0); Mean Corpuscular Hemoglobin 27.9 pg (28.0-34.0); Mean Corpuscular Volume 88.9 fl (80-94); Monocytes # 0.4 10^3/uL (0.2-0.9); Monocytes % 8.5 %; Neutrophils # 3.67 10^3/uL (1.8-7.7); Neutrophils % 73.8 %; Nucleated Red Blood Cells % 0 %; Platelet Count 259 10^3/cmm (130-400); Red Blood Count 3.51 10^6/uL (4.1-5.3); Red Cell Distribution Width 20.1 % (12.1-15.1)
--- NOTE | 2022-04-22 15:42 | W.ED.SOB ---
HPI - SOB/Dyspnea General: Chief Complaint: Shortness of Breath/Dyspnea Stated Complaint: SOB Time Seen by Provider: 04/22/22 15:02 Source: patient Mode of arrival: EMS History of Present Illness: HPI Narrative: 41-year-old male returns emergency room and complains of shortness of breath. Patient frequently is in with these complaints. Majority times he is hyperventilating with anxiety. EMS reported he is 91% on 6 L by nasal cannula on arrival here he is at 93% on 6 L we titrated him down to 3 L and is maintaining 90%. He is significantly hypertensive he states he is taking all his medications. Initially on arrival he was tachycardic and tachypneic with respiratory rate as high as the 30s at times. Patient has end-stage renal disease and severe cirrhosis of the liver. MD elicited complaint: shortness of breath and cough Pertinent past history: COPD and congestive heart failure Onset (ago): hour(s) Timing: constant Severity: moderate Exacerbating factors: nothing Relieving factors: nothing Known history of: COPD and congestive heart failure Associated symptoms: Reports cough; Deny abdominal pain, chest congestion, chest pain, diaphoresis, dizziness, extremity pain, fever(s), hemoptysis, lightheadedness, myalgias, nausea, orthopnea, palpitations, paresthesias, polydipsia, polyuria, rash, sense of impending doom, syncope or vomiting Treatment prior to arrival: oxygen Review of Systems Const: Denies: fever(s) or diaphoresis ENMT: Denies: throat pain, ear or mastoid pain, nasal discharge or nasal congestion Card: Denies: chest pain, palpitations, lightheadedness, syncope or orthopnea Resp: Denies: hemoptysis or chest congestion GI: Denies: abdominal pain, nausea or vomiting : Denies: flank pain, dysuria, urinary frequency or urinary urgency Musc: Denies: extremity pain Skin/Breast: Denies: rash or pruritus Neuro: Denies: dizziness Endo: Denies: polyuria or polydipsia PFSH ED PFSH: Medical History (HFpEF) heart failure with preserved ejection fraction Abdominal ascites Abdominal distention Abnormality of rib determined by X-ray Acute and chronic respiratory failure with hypoxia Acute diastolic CHF (congestive heart failure) Anasarca Anemia Anxiety with depression Arteriovenous fistula for hemodialysis in place, secondary Ascites Atherosclerosis of coronary artery Chronic abdominal pain Chronic respiratory failure CKD (chronic kidney disease) stage 5, GFR less than 15 ml/min Congestive heart failure COPD (chronic obstructive pulmonary disease) COPD (chronic obstructive pulmonary disease) COPD (chronic obstructive pulmonary disease) COVID 05/25 Current smoker Degenerative disc disease, lumbar End stage renal disease End-stage renal disease needing dialysis End-stage renal disease on hemodialysis ESRD (end stage renal disease) ESRD on dialysis ESRD on dialysis Generalized anxiety disorder with panic attacks GERD without esophagitis Gross hematuria Hemoptysis Hepatomegaly Hyperkalemia Hypertension Hypertensive emergency Ileus PHT (pulmonary hypertension) Pneumonia Pulmonary embolism 09/21 Inconclusive for very tiny peripheral LEFT lower lobe pulmonary artery sub segmental emboli versus poor opacification. Right heart failure with reduced right ventricular function Smoking addiction Transaminitis Urethral stricture Surgical History H/O hand surgery Amputation right 2&3 fingers 2017 History of adenoidectomy Stented coronary artery Family History Father No problems noted. Other Hypertension Social History Smoking and tobacco status: current every day smoker cigarettes Packs smoked per day: 1.5 Years cigarettes smoked: 21 [ Other cigarette details: started age 20, currently 0.5ppd ] Alcohol intake: never Marital status: Number of children: 3 Current occupational status: disabled History of recent travel: No Physical Exam Const: GENERAL APPEARANCE: cooperative and anxious ORIENTATION/CONSCIOUSNESS: Yes awake, Yes oriented to person, Yes oriented to place and Yes oriented to time HENMT: COMMON NORMALS: normocephalic, atraumatic and hearing grossly normal bilaterally HEAD & SCALP: normocephalic and atraumatic Resp: COMMON NORMALS: normal respiratory effort, No retractions, No use of accessory muscles and clear to auscultation bilaterally AUSCULTATION: clear to auscultation bilaterally, rhonchi and wheezes Cardio: COMMON NORMALS: regular rhythm and No murmurs present (Cardio) RATE: tachycardic RHYTHM: regular rhythm GI: COMMON NORMALS: Soft to palpation and No hepatosplenomegaly present AUSCULTATION: Yes normoactive bowel sounds PALPATION: Yes Soft to palpation, No Tenderness to palpation present (GI), No Guarding due to palpation present (GI) and Yes No hepatosplenomegaly present Extremity: COMMON NORMALS: normal to inspection, capillary refill normal, no clubbing, cyanosis or edema, no calf tenderness and no pedal edema Neuro: SENSORIUM/ORIENTATION: Yes oriented to person, Yes oriented to place and Yes oriented to time Skin: COMMON NORMALS: no rashes or lesions noted GENERAL SKIN EXAM: no rashes or lesions noted Course Vital Signs: Vital signs: Vital Signs Pulse Rate 69 04/22/22 16:05 Respiratory Rate 20 H 04/22/22 16:05 Blood Pressure 174/112 04/22/22 16:05 Pulse Oximetry 91 04/22/22 16:05 Oxygen Delivery Me thod 04/22/22 14:52 Oxygen Flow Rate 6 04/22/22 14:52 MDM - SOB/Dyspnea Medical Decision Making Mr. Gibbs represent difficult patient has end-stage liver and renal disease. He has chronic anxiety issues that affect his breathing. His carbon dioxide is actually on the lower end for his usual range. He is oxygenating well his respiratory rate is normal his blood pressure is significantly elevated we did give him medications for it lowered it briefly but elevated again he does not want a wait to treat that any further. From his perspective he states his blood pressure is always at that rate and does not want to stay here to have it treated changed. He does not need BiPAP at this time he was insistent for time that he be placed on BiPAP but I do not really have any indication at this point. He does have significant anxiety we usually give him Ativan which will help we gave him a very small dose of Haldol he had typical side effects from but it actually seemed to induce more anxiety with him discussed this with him at length. He prefer just to go home at this point he does have mild increased pulmonary vascular congestion but he is due for dialysis tomorrow and is tolerating well. Medical Records I reviewed the patient's medical records. Lab Data I reviewed the patient's lab results. 04/22/22 15:10 04/22/22 15:10 Labs/Radiology: Radiology Impressions Chest X-Ray 04/22/22 15:02 IMPRESSION: 1. Cardiac enlargement with pulmonary vascular congestion suggesting early CHF. 2. Scattered nonspecific nodular densities in both lungs unchanged. Laboratory Results WBC 5.0 10^3/uL (4.0-10.0) 04/22/22 15:10 RBC 3.51 10^6/uL (4.1-5.3) L 04/22/22 15:10 Hgb 9.8 g/dL (11.7-16.6) L 04/22/22 15:10 Hct 31.2 % (42.0-52.0) L 04/22/22 15:10 MCV 88.9 fl (80-94) 04/22/22 15:10 MCH 27.9 pg (28.0-34.0) L 04/22/22 15:10 MCHC 31.4 g/dL (30.0-36.0) 04/22/22 15:10 RDW 20.1 % (12.1-15.1) H 04/22/22 15:10 Plt Count 259 10^3/cmm (130-400) 04/22/22 15:10 MPV 9.0 fL (7.4-10.4) 04/22/22 15:10 Neut % (Auto) 73.8 % 04/22/22 15:10 Lymph % (Auto) 12.5 % 04/22/22 15:10 Parmer % (Auto) 8.5 % 04/22/22 15:10 Eos % (Auto) 4.0 % 04/22/22 15:10 Baso % (Auto) 1.0 % 04/22/22 15:10 Neut # (Auto) 3.67 10^3/uL (1.8-7.7) 04/22/22 15:10 Lymph # (Auto) 0.6 10^3/uL (0.8-4.8) L 04/22/22 15:10 Parmer # (Auto) 0.4 10^3/uL (0.2-0.9) 04/22/22 15:10 Eos # (Auto) 0.2 10^3/uL (0.0-0.8) 04/22/22 15:10 Baso # (Auto) 0.1 10^3/uL (0.0-0.1) 04/22/22 15:10 Nucleated RBC % (auto) 0 % 04/22/22 15:10 Nucleated RBCs # 0.0 /100WBC 04/22/22 15:10 Specimen Type Arterial 04/22/22 15:06 Sample Site Radial, right 04/22/22 15:06 ABG pH 7.47 (7.35-7.45) H 04/22/22 15:06 ABG pCO2 47.8 mmHg (35-45) H 04/22/22 15:06 ABG pO2 54.3 mmHg (80.0-100.0) L 04/22/22 15:06 ABG HCO3 35.0 mmol/L (22-26) H 04/22/22 15:06 ABG O2 Saturation 89.9 04/22/22 15:06 ABG Base Excess 10.2 mmol/L (-2.0-2.0) H 04/22/22 15:06 Alexei Test Pos 04/22/22 15:06 A-a O2 Gradient 5.1 mmHg (5-10) 04/22/22 15:06 Hematocrit 30.9 % (42-52) L 04/22/22 15:06 Hgb O2 Saturation 86.5 % (95-100) L 04/22/22 15:06 Carboxyhemoglobin 3.0 %THgb (0.4-20.1) 04/22/22 15:06 Methemoglobin 0.7 % (0.4-1.5) 04/22/22 15:06 Total Hemoglobin 10.1 g/dL (14-18) L 04/22/22 15:06 Sodium 133.0 mmol/L (131-143) 04/22/22 15:06 Potassium 5.3 mmol/L (3.5-5.0) H 04/22/22 15:06 Glucose 82.0 mg/dL (70-115) 04/22/22 15:06 Ionized Calcium 1.2 mmol/L (1.1-1.4) 04/22/22 15:06 O2 Delivery Device Nc 04/22/22 15:06 O2 Liters/Min 6.0 % 04/22/22 15:06 Member Certification Manager ID Walci 04/22/22 15:06 Sodium 134 mmol/L (136-145) L 04/22/22 15:10 Potassium 5.5 mmol/L (3.5-5.1) H 04/22/22 15:10 Chloride 92 mmol/L (98-107) L 04/22/22 15:10 Carbon Dioxide 32 mmol/L (22-29) H 04/22/22 15:10 Anion Gap 15.5 (5-19) 04/22/22 15:10 BUN 26 mg/dL (6-20) H 04/22/22 15:10 Creatinine 5.8 mg/dL (0.7-1.2) H* 04/22/22 15:10 GFR Calculation 10.9 mL/min (90-130) L 04/22/22 15:10 Glucose 78 mg/dL (65-115) 04/22/22 15:10 Calculated Osmolality 282 mOsm/kg (285-295) L 04/22/22 15:10 Calcium 9.6 mg/dL (8.5-10.5) 04/22/22 15:10 Total Bilirubin 0.8 mg/dL (0.15-1.2) 04/22/22 15:10 AST 11 U/L (0-40) 04/22/22 15:10 ALT 7 U/L (0-41) 04/22/22 15:10 Alkaline Phosphatase 129 U/L (40-130) 04/22/22 15:10 Total Protein 6.9 g/dL (6.6-8.7) 04/22/22 15:10 Albumin 3.7 g/dL (3.5-5.2) 04/22/22 15:10 Globulin 3.2 g/dL (1.3-4.6) 04/22/22 15:10 Discharge Plan Discharge Patient Disposition: Home Clinical Impression: ESRD on dialysis, Complaint of debility and malaise, Congestive heart failure, Generalized anxiety disorder with panic attacks, Hypertension Condition: Stable Prescriptions: No Action Xifaxan 550 mg tablet 550 mg PO BID Qty: 60 2RF Incruse Ellipta 62.5 mcg/actuation blister with device 1 inh INHALATION DAILY Qty: 30 2RF clonazepam 0.5 mg tablet 0.5 mg PO BEDTIME Qty: 30 0RF quetiapine 25 mg tablet 25 mg PO DAILY Qty: 90 0RF cyclobenzaprine 10 mg tablet 10 mg PO Q12H PRN (Reason: muscle spasm) Qty: 30 2RF nitroglycerin 0.4 mg tablet, sublingual 0.4 mg SUBLINGUAL Q5M PRN (Reason: Chest Pain) Qty: 30 5RF Rx Instructions: do not exceed 3 doses per episode clopidogrel 75 mg tablet 75 mg PO DAILY Qty: 90 3RF (DME) DME - BIPAP See Rx Instructions .Route .MEDSUPPLY Qty: 1 0RF Rx Instructions: Inspiratory Pressure: 16mmHg Expiratory Pressure: 8 mmHg Will need oxygen bled in to the machine to maintain sats >/= 90%. (DME) DME - Oxygen See Rx Instructions .Route .MEDSUPPLY Qty: 1 0RF Rx Instructions: Supplemental Oxygen bled into BIPAP at 2-3L to maintain oxygen sats at >/= 90%. isosorbide mononitrate 60 mg tablet extended release 24 hr 60 mg PO DAILY lisinopril 40 mg Tablet 40 mg PO DAILY lactulose 20 gram/30 mL Solution 10 g PO TID PRN (Reason: Constipation) Auryxia 210 mg iron Tablet 420 mg PO TID Rx Instructions: administer with a meal minoxidil 2.5 mg Tablet 2.5 mg PO BID aspirin 81 mg tablet,delayed release (DR/EC) 81 mg PO DAILY amlodipine 10 mg tablet 10 mg PO BEDTIME pantoprazole 40 mg tablet,delayed release (DR/EC) 40 mg PO DAILY albuterol sulfate 90 mcg/actuation HFA aerosol inhaler 2 puff inhalation Q6H PRN (Reason: Shortness Of Breath Or Wheezing) clonidine HCl 0.2 mg tablet 0.2 mg PO TID hydralazine 50 mg tablet 50 mg PO TID RenaPlex-D 800 mcg-12.5 mg -2,000 unit tablet 1 tab PO QPM carvedilol 25 mg tablet 50 mg PO BID Discharge Orders: Discharge ED (Routine); Ordered 04/22/22 Ordered By: Pato Rivera Referrals: Mal Peres DO [Primary Care Provider] - Discharge Diet: Usual diet Discharge Activity: Resume usual activity Patient Instructions: Opioid Safety, Pain Management Activity Restrictions/Additional Instructions: You are seen today for shortness of breath. Your labs were all at their expected ranges for your medical problems. Your oxygen saturations maintaining normal at 3 L/min on your nasal cannula. Your carbon dioxide was actually slightly lower than it usually is for you which is good. Your blood pressure was markedly elevated but this is been a chronic problem for you. You were given Ativan and Haldol to help with anxiety. The uncomfortable sensation you reported was likely from the Haldol. Strongly recommend that you keep your dialysis appointment tomorrow. Coding Level of Care Code ED Head Setter for Adriannag Fwd Exam Detailed
[2022-04-22 15:45] LABS: Alanine Aminotransferase 7 U/L (0-41); Albumin Level 3.7 g/dL (3.5-5.2); Alkaline Phosphatase 129 U/L (40-130); Anion Gap 15.5 (5-19); Aspartate Amino Transferase 11 U/L (0-40); Blood Urea Nitrogen 26 mg/dL (6-20); Calcium 9.6 mg/dL (8.5-10.5); Carbon Dioxide 32 mmol/L (22-29); Chloride 92 mmol/L (98-107); Globulin 3.2 g/dL (1.3-4.6); Glomerular Filtration Rate 10.9 mL/min (90-130); Glucose 78 mg/dL (65-115); Osmolality Calculated 282 mOsm/kg (285-295); Potassium 5.5 mmol/L (3.5-5.1); Sodium 134 mmol/L (136-145); Total Bilirubin 0.8 mg/dL (0.15-1.2); Total Protein 6.9 g/dL (6.6-8.7)
[2022-04-22] MEDS: labetalol 5 mg/mL SDV 20mL 10 MG IVP (15:59)
[2022-04-22] MEDS: hyDRALAzine 20 mg/mL INJ 1 mL IVP (16:00)
[2022-04-22] MEDS: haloperidol inj 5 mg/mL INJ 1 mL 1.25 MG IVP (16:00)
== END 2022-04-22 18:22 | disposition home or self-care (01) ==
PROVIDERS: Emergency Provider Family Medicine; PCP Family Medicine
DX: I13.2 Hypertensive heart and chronic kidney disease with heart failure and with stage 5 chronic kidney disease, or end stage renal disease (principal); N18.6 End stage renal disease; I50.9 Heart failure, unspecified; Z99.2 Dependence on renal dialysis; R53.81 Other malaise; F41.1 Generalized anxiety disorder; F41.0 Panic disorder [episodic paroxysmal anxiety]
CPT/HCPCS: 36600; 71045; 80051; 80053; 82330; 82805; 85025; 96374; 96375; 99284; J0360; J1630; J3490

== ENCOUNTER → 2022-04-24 10:10 | Outpatient (BNVA) | payer MEDICARE, MEDICAID, SELFPAY | PROVIDERS: PCP Family Medicine; Visit Provider Internal Medicine Cardiovascular Disease | DX: I13.2 Hypertensive heart and chronic kidney disease with heart failure and with stage 5 chronic kidney disease, or end stage renal disease (principal); F17.210 Nicotine dependence, cigarettes, uncomplicated; N18.6 End stage renal disease; I50.30 Unspecified diastolic (congestive) heart failure; Z99.2 Dependence on renal dialysis; I25.10 Atherosclerotic heart disease of native coronary artery without angina pectoris; R18.8 Other ascites | CPT/HCPCS: 99214 ==

== ENCOUNTER 2022-06-09 05:20 | Emergency (ER) | payer MEDICARE, MEDICAID, SELFPAY ==
[2022-06-09] VITALS (51 sets, daily range): BP systolic 197–244; BP diastolic 128–148; PULSE 86–120; RESP 18–32; TEMP 36.7; O2SAT 92–99; BMI 21.1
--- NOTE | 2022-06-09 06:02 | XRR_ITS ---
PROCEDURE INFORMATION: Exam: XR Chest Exam date and time: 06/09/2022 6:13 AM Age: 41 years old Clinical indication: Cough and dyspnea; Prior surgery; Surgery type: Stents; Additional info: Dyspnea/cough TECHNIQUE: Imaging protocol: Radiologic exam of the chest. Views: 1 view. COMPARISON: CR XR chest 1V portable [id number] 04/22/2022 3:22 PM FINDINGS: Lungs: Ill-defined opacity in the mid to lower lungs bilaterally, greater on the right. Pleural spaces: No pneumothorax. The left lateral costophrenic sulcus is blunted. Heart/Mediastinum: There is mild enlargement of the cardiac silhouette. Bones/joints: Bones are unremarkable. XR/XR chest 1V portable [id number] IMPRESSION: 1. Nonspecific bilateral pulmonary opacity is similar to 04/22/2022 suggesting a chronic or recurrent acute process. Infection and interstitial edema are possibilities. Superimposed chronic interstitial lung disease may be present. Recommend correlation with prior chest CT imaging (not available currently). 2. Suspect left pleural effusion. 3. Cardiac enlargement.
[2022-06-09] MEDS: LORazepam 2 mg/mL INJ 1 mL IVP ×2 (06:21→09:29)
--- NOTE | 2022-06-09 06:23 | W.ED.GENADLT ---
HPI - General Adult General: Chief complaint: Shortness of Breath/Dyspnea Stated complaint: respiratory distress Time Seen by Provider: 06/09/22 06:00 Source: patient Mode of arrival: ambulatory History of Present Illness: 41-year-old male presents to the emergency room with complaint of swelling in his groin on the right side. He has a known inguinal hernia has been admitted for with reduction in the past no vomiting no diarrhea he also has end-stage renal disease he is due for dialysis today. Patient has a history of COPD end-stage renal disease as well as advanced liver cirrhosis. No vomiting no diarrhea Onset (ago): hour(s) Location: genitals Severity: moderate Pain Consistency: constant Relieving factors: none Exacerbating factors: none Associated symptoms: Reports cough, decreased appetite, dyspnea, short of breath and weakness; Deny chest pain, confusion, diaphoresis, fevers/chills, headache(s), malaise, nausea, rash, palpitations, seizures, syncope or vomiting Treatments prior to arrival: none Review of Systems Const: Denies: malaise or diaphoresis Card: Denies: chest pain, palpitations or syncope Resp: Reports: dyspnea GI: Denies: nausea or vomiting Skin/Breast: Denies: rash Neuro: Denies: headache(s) or confusion PFS ED PFSH: Medical History (Updated 06/10/22 @ 11:32 by Emanuel Nation MD) Abdominal ascites history of intermittent paracentesis, transudative fluid; prior work up has included negative biopsy, ceruloplasmin level normal, low iron, high ferritin, normal TIBC, negative HIV, hepatitis panel negative, JESÚS/SCL 70/double-stranded DNA antibodies negative, Alpha-fetoprotein level unremarkable, nonalcoholic by history Anemia chronic kidney disease Anxiety with depression Arteriovenous fistula for hemodialysis in place, secondary Atherosclerosis of coronary artery Stent and balloon angioplasty to proximal 1 OM branch Chronic abdominal pain Chronic respiratory failure on home oxygen and bipap Congestive heart failure preserved ejection fraction COPD (chronic obstructive pulmonary disease) COVID 05/25 Degenerative disc disease, lumbar ESRD on dialysis Generalized anxiety disorder with panic attacks History of coronary angiogram 11/2021 - patent stent Hypertension uncontrolled Hypertensive emergency recurrent episodes Inguinal hernia Nicotine dependence, cigarettes, with other nicotine-induced disorders Pulmonary embolism 09/21 CTA inconclusive for very tiny peripheral LEFT lower lobe pulmonary artery sub segmental emboli versus poor opacification. Pulmonary hypertension Umbilical hernia Urethral stricture Surgical History H/O hand surgery Amputation right 2&3 fingers 2017 History of adenoidectomy Stented coronary artery Family History Father No problems noted. Other Hypertension Social History (Updated 06/09/22 @ 17:19 by Anya Vargas MD) Smoking and tobacco status: current every day smoker cigarettes Packs smoked per day: 1.5 Years cigarettes smoked: 21 [ Other cigarette details: started age 20, currently 0.5ppd ] Alcohol intake: never Marital status: Number of children: 3 Current occupational status: disabled Physical Exam Const: GENERAL APPEARANCE: cooperative and comfortable ORIENTATION/CONSCIOUSNESS: Yes awake, Yes oriented to person, Yes oriented to place and Yes oriented to time HENMT: COMMON NORMALS: normocephalic, atraumatic and hearing grossly normal bilaterally HEAD & SCALP: normocephalic and atraumatic Resp: COMMON NORMALS: normal respiratory effort, No retractions, No use of accessory muscles and clear to auscultation bilaterally AUSCULTATION: clear to auscultation bilaterally Cardio: COMMON NORMALS: regular rate, regular rhythm and No murmurs present (Cardio) RATE: regular rate RHYTHM: regular rhythm GI: COMMON NORMALS: Soft to palpation and No hepatosplenomegaly present AUSCULTATION: Yes normoactive bowel sounds PALPATION: Yes Soft to palpation, No Tenderness to palpation present (GI), No Guarding due to palpation present (GI) and Yes No hepatosplenomegaly present : OTHER: Incarcerated inguinal hernia on the right moderate pain with attempts to reduce unable to fully reduce at the bedside with initial attempt Extremity: COMMON NORMALS: normal to inspection, capillary refill normal, no clubbing, cyanosis or edema, no calf tenderness and no pedal edema Neuro: SENSORIUM/ORIENTATION: Yes oriented to person, Yes oriented to place and Yes oriented to time Skin: COMMON NORMALS: no rashes or lesions noted GENERAL SKIN EXAM: no rashes or lesions noted Course Vital Signs: Vital signs: Vital Signs Temperature 98.1 F 06/09/22 05:25 Pulse Rate 120 H 06/09/22 10:10 Respiratory Rate 19 H 06/09/22 11:25 Blood Pressure 244/146 06/09/22 11:10 Pulse Oximetry 96 06/09/22 11:25 Oxygen Delivery Me thod 06/09/22 05:47 Oxygen Flow Rate 4 06/09/22 05:47 MDM - General Adult Medical Decision Making Patient extremely anxious but his sats are normal he is complaining of being short of breath this is his frequent problem for him he is also complaining some scrotal discomfort CT was unremarkable he has his chronic hernia is easily reducible and there is no obstruction. Patient is due for dialysis today he was given Ativan. He still complaining of scrotal pain he was given 2 mg of morphine prior to discharge. He is mildly anemic at 7.7 I think some of this is delusional he is chronically anemic his MCV is elevated. At this point he is stable does not appear to be acute blood loss he has no source of acute blood loss and is vitals are typical for him he is chronically hypertensive. Will discharge to dialysis clinic. Medical Records I reviewed the patient's medical records. Lab Data I reviewed the patient's lab results. 06/09/22 06:30 06/09/22 06:30 Radiology Impressions Chest X-Ray 06/09/22 06:02 IMPRESSION: 1. Nonspecific bilateral pulmonary opacity is similar to 04/22/2022 suggesting a chronic or recurrent acute process. Infection and interstitial edema are possibilities. Superimposed chronic interstitial lung disease may be present. Recommend correlation with prior chest CT imaging (not available currently). 2. Suspect left pleural effusion. 3. Cardiac enlargement. Abdomen/Pelvis CT 06/09/22 07:04 IMPRESSION: 1. Small right inguinal hernia containing fluid. No bowel in the hernia. 2. Nonspecific bilateral inguinal lymphadenopathy is increased since 04/22/2022. 3. Moderate ascites. 4. Small bilateral pleural effusions. 5. Bilateral lower lung opacity suggests interstitial edema. 6. Chronic bilateral L5 pars defects with grade 1 anterolisthesis of L5 on S1. 7. Incidental findings above. Laboratory Results WBC 6.6 10^3/uL (4.0-10.0) 06/09/22 06:30 RBC 2.64 10^6/uL (4.1-5.3) L 06/09/22 06:30 Hgb 7.7 g/dL (11.7-16.6) L 06/09/22 06:30 Hct 24.9 % (42.0-52.0) L 06/09/22 06:30 MCV 94.3 fl (80-94) H 06/09/22 06:30 MCH 29.2 pg (28.0-34.0) 06/09/22 06:30 MCHC 30.9 g/dL (30.0-36.0) 06/09/22 06:30 RDW 17.7 % (12.1-15.1) H 06/09/22 06:30 Plt Count 192 10^3/cmm (130-400) 06/09/22 06:30 MPV 9.8 fL (7.4-10.4) 06/09/22 06:30 Neut % (Auto) 73.3 % 06/09/22 06:30 Lymph % (Auto) 12.1 % 06/09/22 06:30 [place] % (Auto) 5.6 % 06/09/22 06:30 Eos % (Auto) 7.5 % 06/09/22 06:30 Baso % (Auto) 1.2 % 06/09/22 06:30 Neut # (Auto) 4.80 10^3/uL (1.8-7.7) 06/09/22 06:30 Lymph # (Auto) 0.8 10^3/uL (0.8-4.8) 06/09/22 06:30 [place] # (Auto) 0.4 10^3/uL (0.2-0.9) 06/09/22 06:30 Eos # (Auto) 0.5 10^3/uL (0.0-0.8) 06/09/22 06:30 Baso # (Auto) 0.1 10^3/uL (0.0-0.1) 06/09/22 06:30 Nucleated RBC % (auto) 0 % 06/09/22 06:30 Nucleated RBCs # 0.0 /100WBC 06/09/22 06:30 Sodium 132 mmol/L (136-145) L 06/09/22 06:30 Potassium 5.1 mmol/L (3.5-5.1) 06/09/22 06:30 Chloride 95 mmol/L (98-107) L 06/09/22 06:30 Carbon Dioxide 24 mmol/L (22-29) 06/09/22 06:30 Anion Gap 18.1 (5-19) 06/09/22 06:30 BUN 38 mg/dL (6-20) H 06/09/22 06:30 Creatinine 8.0 mg/dL (0.7-1.2) H* 06/09/22 06:30 GFR Calculation 7.5 mL/min (90-130) L 06/09/22 06:30 Glucose 87 mg/dL (65-115) 06/09/22 06:30 Calculated Osmolality 282 mOsm/kg (285-295) L 06/09/22 06:30 Lactic Acid 0.7 mmol/L (0.5-2.2) 06/09/22 06:30 Calcium 9.5 mg/dL (8.5-10.5) 06/09/22 06:30 Total Bilirubin 0.4 mg/dL (0.15-1.2) 06/09/22 06:30 AST 10 U/L (0-40) 06/09/22 06:30 ALT 7 U/L (0-41) 06/09/22 06:30 Alkaline Phosphatase 100 U/L (40-130) 06/09/22 06:30 Total Protein 6.4 g/dL (6.6-8.7) L 06/09/22 06:30 Albumin 3.6 g/dL (3.5-5.2) 06/09/22 06:30 Globulin 2.8 g/dL (1.3-4.6) 06/09/22 06:30 Discharge Plan Discharge Patient Disposition: Home Clinical Impression: ESRD on dialysis, Inguinal hernia, Scrotal edema Condition: Stable Prescriptions: No Action isosorbide mononitrate 120 mg tablet extended release 24 hr 120 mg PO DAILY Qty: 90 2RF hydralazine 100 mg tablet 100 mg PO TID Qty: 270 3RF Incruse Ellipta 62.5 mcg/actuation blister with device 1 inh INHALATION DAILY Qty: 30 2RF clonazepam 0.5 mg tablet 0.5 mg PO BEDTIME Qty: 30 0RF quetiapine 25 mg tablet 25 mg PO DAILY Qty: 90 0RF cyclobenzaprine 10 mg tablet 10 mg PO Q12H PRN (Reason: muscle spasm) Qty: 30 2RF nitroglycerin 0.4 mg tablet, sublingual 0.4 mg SUBLINGUAL Q5M PRN (Reason: Chest Pain) Qty: 30 5RF Rx Instructions: do not exceed 3 doses per episode clopidogrel 75 mg tablet 75 mg PO DAILY Qty: 90 3RF (DME) DME - BIPAP See Rx Instructions .Route .MEDSUPPLY Qty: 1 0RF Rx Instructions: Inspiratory Pressure: 16mmHg Expiratory Pressure: 8 mmHg Will need oxygen bled in to the machine to maintain sats >/= 90%. (DME) DME - Oxygen See Rx Instructions .Route .MEDSUPPLY Qty: 1 0RF Rx Instructions: Supplemental Oxygen bled into BIPAP at 2-3L to maintain oxygen sats at >/= 90%. lisinopril 40 mg Tablet 40 mg PO DAILY lactulose 20 gram/30 mL Solution 10 g PO TID PRN (Reason: Constipation) Auryxia 210 mg iron Tablet 420 mg PO TID Rx Instructions: administer with a meal minoxidil 2.5 mg Tablet 2.5 mg PO BID aspirin 81 mg tablet,delayed release (DR/EC) 81 mg PO DAILY amlodipine 10 mg tablet 10 mg PO BEDTIME pantoprazole 40 mg tablet,delayed release (DR/EC) 40 mg PO DAILY albuterol sulfate 90 mcg/actuation HFA aerosol inhaler 2 puff inhalation Q6H PRN (Reason: Shortness Of Breath Or Wheezing) clonidine HCl 0.2 mg tablet 0.2 mg PO TID RenaPlex-D 800 mcg-12.5 mg -2,000 unit tablet 1 tab PO QPM carvedilol 25 mg tablet 50 mg PO BID doxycycline hyclate 100 mg capsule 100 mg PO BID polyethylene glycol 3350 [Miralax] 17 gram Powder In Packet 17 g PO DAILY warfarin 1 mg tablet See Rx Instructions .ROUTE .COMPLEX Rx Instructions: 3mg once daily Discharge Orders: Discharge ED (Routine); Ordered 06/09/22 Ordered By: Pato Rivera Referrals: Mal Peres DO [Primary Care Provider] - Discharge Diet: Usual diet Discharge Activity: Resume usual activity Patient Instructions: Opioid Safety, Pain Management Activity Restrictions/Additional Instructions: You were seen today for scrotal swelling and pain. The right inguinal hernia is reducible and not incarcerated. There is no sign of a bowel obstruction. You have a moderate amount of scrotal edema which is due to fluid overload. This is best treated by your dialysis which is scheduled this morning. You will be discharged from the emergency room directly to dialysis. 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
[2022-06-09] MEDS: fentaNYL 50 mcg/mL INJ 2mL IVP (06:25)
[2022-06-09 06:48] LABS: Basophils # 0.1 10^3/uL (0.0-0.1); Basophils % 1.2 %; Eosinophils # 0.5 10^3/uL (0.0-0.8); Eosinophils % 7.5 %; Hematocrit 24.9 % (42.0-52.0); Hemoglobin 7.7 g/dL (11.7-16.6); Lymphocytes # 0.8 10^3/uL (0.8-4.8); Lymphocytes % 12.1 %; Mean Corpuscular HGB Conc 30.9 g/dL (30.0-36.0); Mean Corpuscular Hemoglobin 29.2 pg (28.0-34.0); Mean Corpuscular Volume 94.3 fl (80-94); Mean Platelet Volume 9.8 fL (7.4-10.4); Monocytes # 0.4 10^3/uL (0.2-0.9); Monocytes % 5.6 %; Neutrophils % 73.3 %; Nucleated Red Blood Cells % 0 %; Platelet Count 192 10^3/cmm (130-400); Red Blood Count 2.64 10^6/uL (4.1-5.3); Red Cell Distribution Width 17.7 % (12.1-15.1); White Blood Count 6.6 10^3/uL (4.0-10.0)
[2022-06-09 06:57] LABS: Alanine Aminotransferase 7 U/L (0-41); Albumin Level 3.6 g/dL (3.5-5.2); Alkaline Phosphatase 100 U/L (40-130); Anion Gap 18.1 (5-19); Aspartate Amino Transferase 10 U/L (0-40); Blood Urea Nitrogen 38 mg/dL (6-20); Calcium 9.5 mg/dL (8.5-10.5); Carbon Dioxide 24 mmol/L (22-29); Chloride 95 mmol/L (98-107); Globulin 2.8 g/dL (1.3-4.6); Glomerular Filtration Rate 7.5 mL/min (90-130); Glucose 87 mg/dL (65-115); Osmolality Calculated 282 mOsm/kg (285-295); Potassium 5.1 mmol/L (3.5-5.1); Sodium 132 mmol/L (136-145); Total Bilirubin 0.4 mg/dL (0.15-1.2); Total Protein 6.4 g/dL (6.6-8.7)
[2022-06-09 07:01] LABS: Lactic Sepsis W/Reflex 0.7 mmol/L (0.5-2.2)
--- NOTE | 2022-06-09 07:04 | CTR_ITS ---
PROCEDURE INFORMATION: Exam: CT Abdomen And Pelvis Without Contrast Exam date and time: 06/09/2022 7:20 AM Age: 41 years old Clinical indication: Abdominal pain; Other: RT ing hernia; Additional info: Ingiunal hernia TECHNIQUE: Imaging protocol: Computed tomography of the abdomen and pelvis without contrast. Radiation optimization: All CT scans at this facility use at least one of these dose optimization techniques: automated exposure control; mA and/or kV adjustment per patient size (includes targeted exams where dose is matched to clinical indication); or iterative reconstruction. Other protocol: This patient has received 17 known CTs and 0 known cardiac nuclear medicine studies in the 12 months prior to the current study. COMPARISON: CT kidney stone [id number] 04/22/2022 12:56 AM RADIATION DOSE METRICS: Total DLP (mGy-cm): 627.83 FINDINGS: Lungs: There is ill-defined ground-glass opacity and interlobular septal thickening in the lower lungs bilaterally, more apparent on the right. Pleural spaces: Small bilateral pleural effusions. Heart: There is moderate enlargement of the heart. Liver: The liver is moderately enlarged. There is no focal liver abnormality. Gallbladder and bile ducts: The gallbladder is normal. There is no biliary dilation. Pancreas: The pancreas is unremarkable. Spleen: The spleen is mildly enlarged. Adrenal glands: The adrenal glands are unremarkable. Kidneys and ureters: There is moderate atrophy of both kidneys. There is no hydronephrosis or ureteral dilation. Stomach and bowel: The stomach is unremarkable. The small bowel is nondilated. The colon is unremarkable. Appendix: The appendix is normal. Intraperitoneal space: Moderate ascites. There is no intraperitoneal free air. Vasculature: There is moderate aortic atherosclerotic disease. Lymph nodes: There are mildly enlarged bilateral inguinal lymph nodes measuring up to 2.6 x 1.5 cm on the right on series 4, image 89 and 2.4 x 2.0 cm on the left on series 4, image 88. No enlarged retroperitoneal, mesenteric or iliac chain lymph nodes. Urinary bladder: The urinary bladder is decompressed, preventing meaningful evaluation of wall thickness. Reproductive: The prostate and seminal vesicles are unremarkable. Bones/joints: There are chronic bilateral L5 pars defects with grade 1 anterolisthesis of L5 on S1. The pelvis and hips are unremarkable. Soft tissues: There is a small right inguinal hernia containing fluid. CT/CT abdomen pelvis wo con [id number] IMPRESSION: 1. Small right inguinal hernia containing fluid. No bowel in the hernia. 2. Nonspecific bilateral inguinal lymphadenopathy is increased since 04/22/2022. 3. Moderate ascites. 4. Small bilateral pleural effusions. 5. Bilateral lower lung opacity suggests interstitial edema. 6. Chronic bilateral L5 pars defects with grade 1 anterolisthesis of L5 on S1. 7. Incidental findings above.
[2022-06-09] MEDS: hyDRALAzine 20 mg/mL INJ 1 mL IVP (07:27)
[2022-06-09] MEDS: labetalol 5 mg/mL SDV 20mL 10 MG IVP (07:29)
--- NOTE | 2022-06-09 09:18 | PC.NURSE ---
spoke with Umu at dialysis clinic. informed that patient is up for DC but will be a little late for appointment due to no ride at this time. umu stated that as long as he makes before 1PM they will still give him dialysis. mother is on her way to get him.
[2022-06-09] MEDS: HYDROcodone-acetaminophen 10-325 mg Tablet 1 TAB PO (09:58)
--- NOTE | 2022-06-09 10:22 | PC.NURSE ---
Patient has pulled off all cardiac monitoring, BP and pulse ox at this time. patient co pain in his groin area. educated patient of comfort techniques and informed of pain medication just given
--- NOTE | 2022-06-09 10:26 | PC.NURSE ---
attempted to call mother to give update at this time and verify that she is picking up patient. no answer at this time. voicemail left
[2022-06-09] MEDS: morphine 4 mg/mL SDV 1 mL 2 MG IVP (11:25)
== END 2022-06-09 11:33 | disposition home or self-care (01) ==
PROVIDERS: Emergency Provider Family Medicine; PCP Family Medicine
DX: K40.90 Unilateral inguinal hernia, without obstruction or gangrene, not specified as recurrent (principal); N50.89 Other specified disorders of the male genital organs; I13.2 Hypertensive heart and chronic kidney disease with heart failure and with stage 5 chronic kidney disease, or end stage renal disease; N18.6 End stage renal disease; I50.9 Heart failure, unspecified; Z99.2 Dependence on renal dialysis; Z79.01 Long term (current) use of anticoagulants; Z79.82 Long term (current) use of aspirin; Z79.02 Long term (current) use of antithrombotics/antiplatelets; I25.10 Atherosclerotic heart disease of native coronary artery without angina pectoris; J44.9 Chronic obstructive pulmonary disease, unspecified; F17.210 Nicotine dependence, cigarettes, uncomplicated
CPT/HCPCS: 71045; 74176; 80053; 83605; 85025; 96374; 96375; 96376; 99285; J0360; J2060; J2270; J3010; J3490

== ENCOUNTER 2022-06-09 12:27 | Inpatient (IN) | payer MEDICARE, MEDICAID, SELFPAY ==
[2022-06-09] VITALS (101 sets, daily range): BP systolic 117–239; BP diastolic 83–167; PULSE 74–110; RESP 14–37; TEMP 36.6–37; O2SAT 87–100; BMI 16.5
--- NOTE | 2022-06-09 12:37 | W.ED.GENADLT ---
HPI - General Adult General: Chief complaint: Altered Mental Status Stated complaint: INCOHERENT Time Seen by Provider: 06/09/22 12:36 Source: patient History of Present Illness: 41-year-old male returns to the emergency room he just been here very briefly ago. He was discharged back to dialysis The dialysis they did not feel he was stable and they sent him back to the emergency room while he was here previously he was hypertensive and is complaining of abdominal and groin pain. He had a moderate amount of dependent edema in the scrotum and he had a reducible right inguinal hernia CT of his abdomen was negative at that time. He did have a moderate anemia but it was thought that that was likely related to being fluid overloaded his vital signs actually showed hypertension. And it was felt that it was best to have him dialyzed first. While he was here is extremely anxious which is often the case with this patient he was given Ativan. He was complaining of severe pain he was given 2 mg of morphine before leaving to believe resulted in him being over sedate. When he returns here he is awake and alert answers questions appropriately. He is still very anxious. Patient has multiple comorbidities frequently is in the emergency room complaining of difficulty breathing usually during those times he has severe anxiety when he has normal oxygen saturations. It seems most often when he becomes fluid overloaded he becomes more uncomfortable and more anxious. Onset (ago): hour(s) Severity: moderate Pain Consistency: constant Relieving factors: none Exacerbating factors: none Associated symptoms: Reports confusion, decreased appetite, dyspnea, malaise, short of breath and weakness; Deny chest pain, cough, diaphoresis, fevers/chills, headache(s), nausea, rash, palpitations, seizures, syncope or vomiting Treatments prior to arrival: none Review of Systems Const: Reports: malaise; Denies: fever(s), chills, fatigue or diaphoresis ENMT: Denies: throat pain, ear or mastoid pain, nasal discharge or nasal congestion Card: Reports: edema; Denies: chest pain, palpitations, irregular heart rhythm or syncope Resp: Reports: dyspnea; Denies: productive cough, non-productive cough or wheezing GI: Denies: abdominal pain, nausea or vomiting : Denies: flank pain, dysuria, urinary frequency or urinary urgency Skin/Breast: Denies: rash Neuro: Reports: confusion; Denies: headache(s) PFSH ED PFSH: Medical History (Updated 06/11/22 @ 06:47 by Pato Rivera DO) Abdominal ascites history of intermittent paracentesis, transudative fluid; prior work up has included negative biopsy, ceruloplasmin level normal, low iron, high ferritin, normal TIBC, negative HIV, hepatitis panel negative, JESÚS/SCL 70/double-stranded DNA antibodies negative, Alpha-fetoprotein level unremarkable, nonalcoholic by history Anemia chronic kidney disease Anxiety with depression Arteriovenous fistula for hemodialysis in place, secondary Atherosclerosis of coronary artery Stent and balloon angioplasty to proximal 1 OM branch Chronic abdominal pain Chronic respiratory failure on home oxygen and bipap Congestive heart failure preserved ejection fraction COPD (chronic obstructive pulmonary disease) COVID 05/25 Degenerative disc disease, lumbar ESRD on dialysis Generalized anxiety disorder with panic attacks History of coronary angiogram 11/2021 - patent stent Hypertension uncontrolled Hypertensive emergency recurrent episodes Inguinal hernia Nicotine dependence, cigarettes, with other nicotine-induced disorders Pulmonary embolism 09/21 CTA inconclusive for very tiny peripheral LEFT lower lobe pulmonary artery sub segmental emboli versus poor opacification. Pulmonary hypertension Umbilical hernia Urethral stricture Surgical History H/O hand surgery Amputation right 2&3 fingers 2017 History of adenoidectomy Stented coronary artery Family History Father No problems noted. Other Hypertension Social History (Updated 06/09/22 @ 17:19 by Anya Vargas MD) Smoking and tobacco status: current every day smoker cigarettes Packs smoked per day: 1.5 Years cigarettes smoked: 21 [ Other cigarette details: started age 20, currently 0.5ppd ] Alcohol intake: never Marital status: Number of children: 3 Current occupational status: disabled Physical Exam HENMT: COMMON NORMALS: normocephalic, atraumatic and hearing grossly normal bilaterally HEAD & SCALP: normocephalic and atraumatic Resp: COMMON NORMALS: normal respiratory effort, No retractions, No use of accessory muscles and clear to auscultation bilaterally AUSCULTATION: clear to auscultation bilaterally Cardio: COMMON NORMALS: regular rate, regular rhythm and No murmurs present (Cardio) RATE: regular rate RHYTHM: regular rhythm GI: COMMON NORMALS: Soft to palpation and No hepatosplenomegaly present AUSCULTATION: Yes normoactive bowel sounds PALPATION: Yes Soft to palpation, No Tenderness to palpation present (GI), No Guarding due to palpation present (GI) and Yes No hepatosplenomegaly present Extremity: COMMON NORMALS: normal to inspection, capillary refill normal, no clubbing, cyanosis or edema, no calf tenderness and no pedal edema Skin: COMMON NORMALS: no rashes or lesions noted GENERAL SKIN EXAM: no rashes or lesions noted Course Vital Signs: Vital signs: Vital Signs Temperature 98.2 F 06/10/22 20:00 Pulse Rate 72 06/11/22 06:00 Respiratory Rate 16 06/11/22 05:15 Blood Pressure 183/96 06/11/22 05:15 Pulse Oximetry 96 06/11/22 05:36 Oxygen Delivery Me thod 06/10/22 19:30 Oxygen Flow Rate 5 06/10/22 17:30 Fraction of Inspir ed Oxygen 35 06/11/22 05:36 MDM - General Adult Medical Decision Making Patient here earlier in the morning and evaluation was negative he was anemic however he is chronically anemic and we had recommended patient go to dialysis. He is also extremely hypertensive he was given his morning medications that he usually takes as well as other antihypertensive at this point he will have to be admitted for his accelerated hypertension which is chronic for him he is currently at levels we typically see with him and he has been resistant to antihypertensives in the past. He will need dialysis discussed Dr. Vargas. He did also get a scrotal ultrasound which showed epididymitis and diffuse scrotal wall thickening but no testicular mass or torsion. Discussed Dr. Vargas patient admitted Medical Records I reviewed the patient's medical records. Lab Data I reviewed the patient's lab results. 06/09/22 13:07 06/09/22 13:07 Radiology Impressions Scrotum Ultrasound 06/09/22 15:43 IMPRESSION: 1. No testicular mass or torsion. 2. Bilateral acute epididymitis. Markedly enlarged epididymis with heterogeneity. 3. Diffuse scrotal wall thickening. Laboratory Results WBC 6.4 10^3/uL (4.0-10.0) 06/10/22 04:17 RBC 2.54 10^6/uL (4.1-5.3) L 06/10/22 04:17 Hgb 7.3 g/dL (11.7-16.6) L 06/10/22 04:17 Hct 23.2 % (42.0-52.0) L 06/10/22 04:17 MCV 91.3 fl (80-94) 06/10/22 04:17 MCH 28.7 pg (28.0-34.0) 06/10/22 04:17 MCHC 31.5 g/dL (30.0-36.0) 06/10/22 04:17 RDW 17.7 % (12.1-15.1) H 06/10/22 04:17 Plt Count 192 10^3/cmm (130-400) 06/10/22 04:17 MPV 10.0 fL (7.4-10.4) 06/10/22 04:17 Neut % (Auto) 77.1 % 06/10/22 04:17 Lymph % (Auto) 7.8 % 06/10/22 04:17 [place] % (Auto) 7.6 % 06/10/22 04:17 Eos % (Auto) 6.1 % 06/10/22 04:17 Baso % (Auto) 0.9 % 06/10/22 04:17 Neut # (Auto) 4.96 10^3/uL (1.8-7.7) 06/10/22 04:17 Lymph # (Auto) 0.5 10^3/uL (0.8-4.8) L 06/10/22 04:17 [place] # (Auto) 0.5 10^3/uL (0.2-0.9) 06/10/22 04:17 Eos # (Auto) 0.4 10^3/uL (0.0-0.8) 06/10/22 04:17 Baso # (Auto) 0.1 10^3/uL (0.0-0.1) 06/10/22 04:17 Nucleated RBC % (auto) 0 % 06/10/22 04:17 Nucleated RBCs # 0.0 /100WBC 06/10/22 04:17 PT 14.40 SECONDS (12.1-14.9) 06/09/22 13:07 INR 1.09 (0.8-1.2) 06/09/22 13:07 Sodium 134 mmol/L (136-145) L 06/10/22 04:17 Potassium 5.1 mmol/L (3.5-5.1) 06/10/22 04:17 Chloride 96 mmol/L (98-107) L 06/10/22 04:17 Carbon Dioxide 28 mmol/L (22-29) 06/10/22 04:17 Anion Gap 15.1 (5-19) 06/10/22 04:17 BUN 29 mg/dL (6-20) H 06/10/22 04:17 Creatinine 5.6 mg/dL (0.7-1.2) H* 06/10/22 04:17 GFR Calculation 11.4 mL/min (90-130) L 06/10/22 04:17 Glucose 77 mg/dL (65-115) 06/10/22 04:17 Calculated Osmolality 283 mOsm/kg (285-295) L 06/10/22 04:17 Calcium 9.2 mg/dL (8.5-10.5) 06/10/22 04:17 Phosphorus 5.1 mg/dL (2.5-4.5) H 06/10/22 04:17 Magnesium 1.8 mg/dL (1.7-2.3) 06/10/22 04:17 Total Bilirubin 0.5 mg/dL (0.15-1.2) 06/10/22 04:17 AST 9 U/L (0-40) 06/10/22 04:17 ALT 6 U/L (0-41) 06/10/22 04:17 Alkaline Phosphatase 89 U/L (40-130) 06/10/22 04:17 Total Protein 6.1 g/dL (6.6-8.7) L 06/10/22 04:17 Albumin 3.4 g/dL (3.5-5.2) L 06/10/22 04:17 Globulin 2.7 g/dL (1.3-4.6) 06/10/22 04:17 Discharge Plan Discharge Patient Disposition: Admitted As Inpatient Admit Provider: Anya Vargas Clinical Impression: Altered mental status, Anxiety, Inguinal hernia, Epididymitis, COPD (chronic obstructive pulmonary disease), Anemia, Congestive heart failure, ESRD on dialysis, Hypertension Condition: Stable 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
[2022-06-09] MEDS: labetalol 5 mg/mL SDV 20mL 10 MG IVP (12:40)
[2022-06-09] MEDS: hyDRALAzine 20 mg/mL INJ 1 mL IVP (12:40)
[2022-06-09 13:18] LABS: Basophils # 0.1 10^3/uL (0.0-0.1); Basophils % 0.8 %; Eosinophils # 0.5 10^3/uL (0.0-0.8); Eosinophils % 5.4 %; Hemoglobin 7.8 g/dL (11.7-16.6); Lymphocytes # 0.6 10^3/uL (0.8-4.8); Lymphocytes % 7.3 %; Mean Corpuscular HGB Conc 31.2 g/dL (30.0-36.0); Mean Corpuscular Hemoglobin 28.7 pg (28.0-34.0); Mean Corpuscular Volume 91.9 fl (80-94); Mean Platelet Volume 9.8 fL (7.4-10.4); Monocytes # 0.5 10^3/uL (0.2-0.9); Monocytes % 5.6 %; Neutrophils # 7.06 10^3/uL (1.8-7.7); Neutrophils % 80.6 %; Nucleated Red Blood Cells % 0 %; Platelet Count 199 10^3/cmm (130-400); Red Blood Count 2.72 10^6/uL (4.1-5.3); Red Cell Distribution Width 17.8 % (12.1-15.1); White Blood Count 8.8 10^3/uL (4.0-10.0)
[2022-06-09] MEDS: isosorbide mononitrate ER 60 mg Tablet 120 MG PO (13:23)
[2022-06-09] MEDS: amlodipine 10 mg Tablet PO (13:23)
[2022-06-09] MEDS: cloNIDine 0.1 mg Tablet 0.2 MG PO (13:24)
[2022-06-09] MEDS: quetiapine 25 mg Tablet PO (13:24)
[2022-06-09] MEDS: CLONazepam 0.5 mg Tablet PO (13:24)
[2022-06-09] MEDS: lisinopril 20 mg Tablet 40 MG PO (13:24)
[2022-06-09] MEDS: clopidogrel 75 mg Tablet PO (13:24)
[2022-06-09] MEDS: hyDRALAzine 25 mg Tablet 100 MG PO (13:24)
[2022-06-09 13:33] LABS: Anion Gap 17.7 (5-19); Blood Urea Nitrogen 39 mg/dL (6-20); Calcium 9.4 mg/dL (8.5-10.5); Carbon Dioxide 24 mmol/L (22-29); Chloride 95 mmol/L (98-107); Glomerular Filtration Rate 7.5 mL/min (90-130); Glucose 81 mg/dL (65-115); Magnesium 1.7 mg/dL (1.7-2.3); Osmolality Calculated 280 mOsm/kg (285-295); Phosphorus 7.2 mg/dL (2.5-4.5); Potassium 5.7 mmol/L (3.5-5.1); Sodium 131 mmol/L (136-145)
--- NOTE | 2022-06-09 15:43 | US_ITS ---
WS: [id number] TESTICULAR ULTRASOUND HISTORY: pain COMPARISON: CT 06/09/2022 reviewed. TECHNIQUE: Real-time and color Doppler imaging or utilized to perform a testicular ultrasound. Right testicle: 3.3 cm x 2.5 cm x 2.3 cm. Normal size and echogenicity. No mass or torsion. Normal color Doppler is present throughout. Systolic and diastolic velocities are both present. No significant hydrocele. Right epididymis: Markedly enlarged heterogeneous hypervascular epididymis. Hyperechoic and hypoechoi c areas throughout the epididymis with mildly increased vascularity. There is marked scrotal wall thi ckening. Left testicle: 3.7 cm x 2.8 cm x 2.0 cm. Normal size and echogenicity. No mass or torsion. Normal color Doppler is present throughout. Systolic and diastolic velocities are both present. No significant hydrocele. Left epididymis: Moderately enlarged heterogeneous epididymis. The entire epididymis is enlarged with hyperechoic and hypoechoic areas. Mild increased vascularity. Mild diffuse scrotal wall thickening. US/US scrotum [id number] IMPRESSION: 1. No testicular mass or torsion. 2. Bilateral acute epididymitis. Markedly enlarged epididymis with heterogenei ty. 3. Diffuse scrotal wall thickening.
--- NOTE | 2022-06-09 16:00 | PC.PHAR ---
pt unable to verify - verified by last filled on external med history
--- NOTE | 2022-06-09 16:58 | PM.HP ---
Providers/Chief Complaint Admitting Physician: Anya Vargas MD Primary Care Provider: Mal Peres DO Chief Complaint: INCOHERENT History of Present Illness Mal Gibbs is a 41 year old male who presented to the emergency room for the second time today with a complaint of being incoherent at hemodialysis. He had originally presented to the emergency room in the insurance processor hours with a complaint of difficulty breathing and groin pain. He was evaluated and felt to most need dialysis. He had a reducible inguinal hernia, hypertension and evidence of fluid overload. He is a known chronic kidney disease patient on hemodialysis Wednesdays and Fridays. He denies missing any dialysis last week. He has a history of recurrent admissions with hypertensive emergency. He denies missing his medications but simultaneously is unable to tell me what medications he normally takes at home. He is frequently in the emergency room and admitted to the hospital. While in the ER this morning he received a dose of Ativan for anxiety and a dose of morphine for repeated complaints of pain. He also received antihypertensive therapy. At that ED visit his blood pressures were noted to be as high as 230s over 140s. By the time patient arrived at dialysis he was not able to provide much in the way of any history, continued to be hypertensive and was sent back to the ER has not felt stable for outpatient dialysis. On arrival back to the emergency room he continued to complain of pain when aroused but was quite lethargic. At the time of my evaluation I am not really able to get much in in the way of detailed history from him. He tells me that he is having pain in his right groin and in his back. Does not answer when I ask if he has chest pain or difficulty breathing. He sitting in bed with his legs crossed, leaning forward. When I ask him questions, he asks for pain medicine and anxiety medicine. In the emergency room today during his second visit he has already had the following: Amlodipine 10 mg, clonidine 0.2 mg, hydralazine 30 mg IV and 100 mg p.o., isosorbide mononitrate ER 120 mg, labetalol 10 mg, lisinopril 40 mg along with 0.5 mg of clonazepam, 25 mg of Seroquel and 75 mg of Plavix. During his visit to the emergency room this morning he received 50 mg of IV fentanyl for reduction of his hernia, 20 mg of IV hydralazine, 1 dose of hydrocodone 10/325, labetalol 10 mg IV x1 dose, Ativan 2 mg IV x2 doses, morphine 2 mg IV x1 dose. Blood pressures in the emergency room have continued to be quite elevated ranging from roughly 200-240 systolic over 100-130 diastolic. Review of vital signs during previous visits both to the emergency room and when admitted shows that he has had similar blood pressures in the past at least at times during prior stays though current values are at the upper range of what I have been able to find. When specifically asked patient denies any focal weakness that is new. No complaints of headache. No nausea or vomiting. No diarrhea. No reports of fever. His only complaints are pain in his back and pain in his groin. A CT of the abdomen and pelvis was performed with results as noted below. A scrotal ultrasound has also been completed though results are pending. Patient does not make urine that he has been able to tell me. Review of Systems General: Reports: Other (Review of systems as per HPI or otherwise unobtainable presently) Medications/Allergies Home Medications Medication Instructions Recorded Confirmed Last Taken Type umeclidinium 62.5 mcg/actuation 1 inh inhalation DAILY #30 ea 08/06/21 04/22/22 04/22/22 Rx blister powder for inhalation (Incruse Ellipta) ferric citrate 210 mg iron tablet 420 mg PO TID 11/03/21 04/22/22 04/22/22 History (Auryxia) lactulose 20 gram/30 mL oral 10 g PO TID PRN Constipation 11/03/21 04/22/22 04/17/22 History solution lisinopril 40 mg tablet 40 mg PO DAILY 11/03/21 04/22/22 04/22/22 History minoxidil 2.5 mg tablet 2.5 mg PO BID 11/22/21 04/22/22 04/22/22 History nitroglycerin 0.4 mg sublingual 0.4 mg sublingual Q5M PRN Chest 12/02/21 04/22/22 04/17/22 Rx tablet Pain #30 tabs clopidogrel 75 mg tablet 75 mg PO DAILY #90 tabs 01/28/22 04/22/22 04/22/22 Rx albuterol sulfate 90 mcg/actuation 2 puff inhalation Q6H PRN 02/21/22 04/22/22 04/16/22 History aerosol inhaler Shortness Of Breath Or Wheezing amlodipine 10 mg tablet 10 mg PO BEDTIME 02/21/22 04/22/22 04/22/22 History aspirin 81 mg tablet,delayed 81 mg PO DAILY 02/21/22 04/22/22 04/22/22 History release clonidine HCl 0.2 mg tablet 0.2 mg PO TID 02/21/22 04/22/22 04/22/22 History pantoprazole 40 mg tablet,delayed 40 mg PO DAILY 02/21/22 04/22/22 04/22/22 History release DME - BIPAP #1 ea 02/25/22 04/22/22 03/20/22 Rx DME - Oxygen #1 ea 02/25/22 04/22/22 03/20/22 Rx vit B,C-folic ac 800 mcg-zinc 12.5 1 tab PO QPM 03/14/22 04/22/22 04/22/22 History mg-selen-D3 2,000 unit-vit E tablet (RenaPlex-D) clonazepam 0.5 mg tablet 0.5 mg PO BEDTIME #30 tabs 04/10/22 04/22/22 04/21/22 Rx cyclobenzaprine 10 mg tablet 10 mg PO Q12H PRN muscle spasm #30 04/10/22 04/22/22 04/16/22 Rx tabs quetiapine 25 mg tablet 25 mg PO DAILY #90 tabs 04/10/22 04/22/22 04/21/22 Rx carvedilol 25 mg tablet 50 mg PO BID 04/22/22 04/22/22 04/22/22 History hydralazine 100 mg tablet 100 mg PO TID #270 tabs 04/24/22 04/24/22 Unknown Rx isosorbide mononitrate 120 mg 120 mg PO DAILY #90 tabs 04/24/22 04/24/22 Unknown Rx tablet,extended release 24 hr doxycycline hyclate 100 mg capsule 100 mg PO BID 06/09/22 Unknown History polyethylene glycol 3350 17 gram 17 g PO DAILY 06/09/22 Unknown History oral powder packet (Miralax) warfarin 1 mg tablet See Rx Instructions .Route .COMPLEX 06/09/22 Unknown History Allergies Allergy/AdvReac Type Severity Reaction Status Date / Time nifedipine Allergy ALGY-Swell Verified 04/16/22 07:57 Lip/Tongue/Throat Additional Medication Information Above medication list is what we have in [facility] records. Patient has not been able or not agreeable to confirming or denying current medication list thus far during the stay. According to available external pharmacy records that I can see within [facility], I have found the following, although unknown if patient picked up these prescriptions: Prescribed in either May or June 2022 Doxycycline on June 06 through [facility], unknown indication MiraLAX Isosorbide mononitrate Coumadin Aldactone Hydrocodone 5/325 Hydralazine Levaquin on May 23, unknown indication Prescribed in April 2022 for 30-day supply only Flexeril Clonazepam Auryxia Prescribed in March 2022 for 30-day supply or less Seroquel Augmentin, unknown indication Prednisone, unknown indication Protonix Xifaxin Prescribed in March 2022 for a 90-day supply Carvedilol Isosorbide mononitrate Clonidine PFSH Acute PFSH: Medical History (Updated 06/09/22 @ 18:23 by Anya Vargas MD) Abdominal ascites history of intermittent paracentesis, transudative fluid; prior work up has included negative biopsy, ceruloplasmin level normal, low iron, high ferritin, normal TIBC, negative HIV, hepatitis panel negative, JEÚSS/SCL 70/double-stranded DNA antibodies negative, Alpha-fetoprotein level unremarkable, nonalcoholic by history Anemia chronic kidney disease Anxiety with depression Arteriovenous fistula for hemodialysis in place, secondary Atherosclerosis of coronary artery Stent and balloon angioplasty to proximal 1 OM branch Chronic abdominal pain Chronic respiratory failure on home oxygen and bipap Congestive heart failure preserved ejection fraction COPD (chronic obstructive pulmonary disease) COVID 05/25 Degenerative disc disease, lumbar ESRD on dialysis Generalized anxiety disorder with panic attacks History of coronary angiogram 11/2021 - patent stent Hypertension uncontrolled Hypertensive emergency recurrent episodes Inguinal hernia Nicotine dependence, cigarettes, with other nicotine-induced disorders Pulmonary embolism 09/21 CTA inconclusive for very tiny peripheral LEFT lower lobe pulmonary artery sub segmental emboli versus poor opacification. Pulmonary hypertension Umbilical hernia Urethral stricture Surgical History H/O hand surgery Amputation right 2&3 fingers 2017 History of adenoidectomy Stented coronary artery Family History Father No problems noted. Other Hypertension Social History (Updated 06/09/22 @ 17:19 by Anya Vargas MD) Smoking and tobacco status: current every day smoker cigarettes Packs smoked per day: 1.5 Years cigarettes smoked: 21 [ Other cigarette details: started age 20, currently 0.5ppd ] Alcohol intake: never Marital status: Number of children: 3 Current occupational status: disabled Vitals/I&O/Wt Last Vital Signs Pulse 98 06/09/22 16:30 Resp 20 H 06/09/22 16:30 BP 210/120 06/09/22 16:34 Pulse Ox 97 06/09/22 16:30 O2 Del Method 06/09/22 12:27 Weight last 48 hrs Weight 56.699 kg Physical Exam Narrative: Patient is lethargic during examination and requires stimulation to stay awake and attempt to answer questions. Most responses are a few words with limited details. Normocephalic. Pupils are equally reactive, not pinpoint. Anicteric sclera. Nasopharynx is clear. Oral mucosa are dry. Neck is supple. Lungs with decreased breath sounds both bases, tachypnea but no accessory muscle use. Unable to lie flat currently. Prefers to stay upright. Regular rhythm with distant heart sounds. Pulses are 2+ x4. Pitting edema is noted to the lower thoracic region. Abdomen is rotund, no rebound or guarding, no appreciable tenderness in the upper quadrants, patient is uncomfortable with attempts at palpation of the lower quadrants but not able to localize pain within the abdomen. Bowel sounds are positive. Reducible right inguinal hernia noted with no overlying erythema or skin discoloration. Mild scrotal edema. Chronic stasis changes noted to both lower extremities. There is thickened and scabbed skin over the fifth MTP of the right foot and at the medial base of the great toe on the left foot. Patient moves all extremities with equal handgrips and grossly normal motor function of lower extremities. Restless at times during examination but no involuntary movements noted. Data 06/09/22 13:07 06/09/22 13:07 Other Labs: Laboratory Results WBC 8.8 10^3/uL (4.0-10.0) 06/09/22 13:07 RBC 2.72 10^6/uL (4.1-5.3) L 06/09/22 13:07 Hgb 7.8 g/dL (11.7-16.6) L 06/09/22 13:07 Hct 25.0 % (42.0-52.0) L 06/09/22 13:07 MCV 91.9 fl (80-94) 06/09/22 13:07 MCH 28.7 pg (28.0-34.0) 06/09/22 13:07 MCHC 31.2 g/dL (30.0-36.0) 06/09/22 13:07 RDW 17.8 % (12.1-15.1) H 06/09/22 13:07 Plt Count 199 10^3/cmm (130-400) 06/09/22 13:07 MPV 9.8 fL (7.4-10.4) 06/09/22 13:07 Neut % (Auto) 80.6 % 06/09/22 13:07 Lymph % (Auto) 7.3 % 06/09/22 13:07 [place]les % (Auto) 5.6 % 06/09/22 13:07 Eos % (Auto) 5.4 % 06/09/22 13:07 Baso % (Auto) 0.8 % 06/09/22 13:07 Neut # (Auto) 7.06 10^3/uL (1.8-7.7) 06/09/22 13:07 Lymph # (Auto) 0.6 10^3/uL (0.8-4.8) L 06/09/22 13:07 [place]les # (Auto) 0.5 10^3/uL (0.2-0.9) 06/09/22 13:07 Eos # (Auto) 0.5 10^3/uL (0.0-0.8) 06/09/22 13:07 Baso # (Auto) 0.1 10^3/uL (0.0-0.1) 06/09/22 13:07 Nucleated RBC % (auto) 0 % 06/09/22 13:07 Nucleated RBCs # 0.0 /100WBC 06/09/22 13:07 Sodium 131 mmol/L (136-145) L 06/09/22 13:07 Potassium 5.7 mmol/L (3.5-5.1) H 06/09/22 13:07 Chloride 95 mmol/L (98-107) L 06/09/22 13:07 Carbon Dioxide 24 mmol/L (22-29) 06/09/22 13:07 Anion Gap 17.7 (5-19) 06/09/22 13:07 BUN 39 mg/dL (6-20) H 06/09/22 13:07 Creatinine 8.0 mg/dL (0.7-1.2) H* 06/09/22 13:07 GFR Calculation 7.5 mL/min (90-130) L 06/09/22 13:07 Glucose 81 mg/dL (65-115) 06/09/22 13:07 Calculated Osmolality 280 mOsm/kg (285-295) L 06/09/22 13:07 Calcium 9.4 mg/dL (8.5-10.5) 06/09/22 13:07 Phosphorus 7.2 mg/dL (2.5-4.5) H 06/09/22 13:07 Magnesium 1.7 mg/dL (1.7-2.3) 06/09/22 13:07 Laboratory Tests 06/09/22 06/09/22 06:30 06:30 Hgb 7.7 L Hct 24.9 L Potassium 5.1 Total Bilirubin 0.4 AST 10 ALT 7 Alkaline Phosphatase 100 Total Protein 6.4 L Albumin 3.6 Globulin 2.8 A&P Assessment and plan (1) Altered mental status: [place] secondary to anxiolytic and pain medications received today. Could also be secondary to hypertensive emergency in this patient who has repeated episodes of such but currently no other neurological deficits identifiable. Qualifiers: Altered mental status type: somnolence Qualified Code(s): R40.0 - Somnolence (2) Hypertensive emergency: In a patient who did not take his medications today and has a history of repeated hypertensive emergencies. He is also due for dialysis today and has not yet had it as a contributing factor. (3) ESRD on dialysis: On dialysis Wednesdays and Fridays. Has not had dialysis today yet. (4) Anemia: Anemia of chronic kidney disease with hemoglobin lower than usual. No reported bleeding but may be on chronic anticoagulation. Have been unable to clarify medication list thus far. Qualifiers: Anemia type: due to chronic kidney disease Chronic kidney disease stage: on chronic dialysis Qualified Code(s): N18.6 - End stage renal disease; D63.1 - Anemia in chronic kidney disease; Z99.2 - Dependence on renal dialysis (5) Atherosclerosis of coronary artery: Known history of coronary artery disease with prior angioplasty and stent to proximal first OM branch, last angiogram in November 2021 with patent stent. Not currently complaining of chest pain. (6) Congestive heart failure: Chronic heart failure with preserved ejection fraction. Acute component secondary to volume overload, requiring supplemental oxygen beyond usual at various times today. Unable to lie flat. (7) Inguinal hernia: Reducible right inguinal hernia, scrotal ultrasound pending read (8) Low back pain: Chronic low back pain not responding to oral medications, no areas of obvious tenderness to palpation along the thoracolumbar spine on my examination though with palpable edema to the upper lumbar and lower thoracic area (9) Abdominal ascites: Chronic issue that has been evaluated in the past, transudative, not currently with significant abdominal pain associated with guarding or tympany on my examination (10) Anxiety: Unclear what medications patient is on chronically for this though he has had prescriptions for clonazepam as recently as April. It was a 30-day supply. Acute withdrawal from this or other benzodiazepines could account for difficulty controlling blood pressure and managing other symptoms presently in addition to other medical conditions. (11) Nicotine dependence, cigarettes, with other nicotine-induced disorders: Unclear how much patient is currently smoking Plan Prescribed doxycycline a few days ago for unclear reasons Observation admission Nephrology consultation for dialysis today Will initiate nitroglycerin drip for blood pressure control followed by hydralazine 100 mg 3 times a day and isosorbide mononitrate ER 120 mg daily. Plan to wean nitroglycerin drip as able for blood pressures around 180/100 at this point in time. We will need to monitor blood pressures and address potential need for other medications. I have ordered clonidine as needed because it does look like he has been prescribed that with a 90-day supply as recently as March. We really need to get a clear idea of what he does and does not take on a regular basis to be able to better manage his blood pressure safely but I am not able to get that information from him currently. Check INR as he may be on Coumadin Repeat hemoglobin after dialysis and monitor for any signs of bleeding EKG secondary to known history of coronary artery disease Oxygen therapy and BiPAP if needed Follow-up pending scrotal ultrasound Monitor inguinal hernia for signs of incarceration, none currently present For pain control will try oxycodone 5 mg as he reports that hydrocodone 5 mg does not help nor did 10 mg. He indicates that he does not get any relief with home pain control regimens. Tylenol with a max of 2 g a day for mild pain or fever Will add Flexeril for muscular pain/spasms Low-dose benzodiazepines for anxiolytic coverage monitoring mental status Nicotine patch if needed Continue doxycycline as per outpatient prescription at this time SCDs for DVT prophylaxis currently We will address pharmacological DVT prophylaxis after INR available given possibility of outpatient Coumadin use Clarify home medication list when patient is more alert or family is available. An accurate representation of what he does and does not take at home may help manage him more safely during acute episodes. ABG was ordered to evaluate CO2 and oxygenation given difficulty getting accurate history but patient declined stating that he would not allow an ABG to be done until he received IV pain medication. I explained that I was not comfortable providing IV pain medication currently given difficulty getting information from him combined with the fact that medications administered this morning led to him being so lethargic that he was sent back to the emergency room. Mr. Gibbs says that he has not slept for several days which is a common problem for him and that oral pain medications have not provided him any relief in the outpatient setting. The only medication he stated that he has had orally is hydrocodone, hence changed to oxycodone to see if he has any more relief as noted above Anticipate after receiving dialysis patient's blood pressure will improve as well his labs. We will monitor his response to treatment as outlined and determine further course of care. Currently anticipate discharge home with outpatient follow-up with usual dialysis schedule and follow-up to primary care provider. Full code Attestations Medical Necessity Statement*: Currently anticipate a stay less than two midnights patient with known end-stage renal disease and other comorbid conditions as noted above presenting with hypertensive emergency and mental status changes related to medications that led to him missing dialysis today. Plans are as noted above. Coding Level of Care Code 86780 High MDM includes risk/complexity, reviewing previous or external records, reviewing test results, ordering lab/other test(s) and speaking with independent historian (other than patient) (Reviewed prior history and presentation with dialysis nurse familiar with patient) and High Time for a total of 85 minutes, includes reviewing past or interval history, examining/interviewing patient, placing orders, discussing plan of care with staff and documenting encounter Diagnoses Altered mental status R40.0 Altered mental status type: somnolence Hypertensive emergency I16.1 ESRD on dialysis N18.6; Z99.2 Anemia N18.6; D63.1; Z99.2 Anemia type: due to chronic kidney disease Chronic kidney disease stage: on chronic dialysis Atherosclerosis of coronary artery I25.10 Congestive heart failure I50.9 Inguinal hernia K40.90 Low back pain M54.50 Abdominal ascites R18.8 Anxiety F41.9 Nicotine dependence, cigarettes, with other nicotine-induced disorders F17.218
--- NOTE | 2022-06-09 18:14 | PC.NURSE ---
ATTEMPTED REPORT NURSE UNAVAILABLE.
[2022-06-09 18:16] LABS: INR 1.09 (0.8-1.2)
--- NOTE | 2022-06-09 18:19 | PC.NURSE ---
verbal from . goal for BP is 190/80
[2022-06-09] MEDS: nitroglycerin drip 50 MG/250 ML PREMIX IV (18:20)
--- NOTE | 2022-06-09 18:26 | PC.RESP ---
rt attempted to perform ordered abg but patient refused stating rt was not allowed to touch his arm unless he gets pain meds first. dr. underwood notified and ask rt to document as a refusal from pt
--- NOTE | 2022-06-09 18:31 | PC.NURSE ---
Assessment: Inguinal hernia present. On assessment Bilateral edema refers to his flank and abdomen
--- NOTE | 2022-06-09 18:45 | PC.NURSE ---
Pt arrives to ICU fro Ed. Pt sitting up in bed rocking stating his back is killing him.
[2022-06-09] MEDS: oxyCODONE 5 mg IR Tab/Cap PO (19:12)
[2022-06-09] MEDS: ALPRAZolam 0.5 mg Tablet PO (19:12)
--- NOTE | 2022-06-09 21:06 | ECG_ITS ---
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 Measurements Intervals [place] Rate: 77 P: 13 MA: 189 QRS: 49 QRSD: 106 T: 69 QT: 404 QTc: 458 Interpretive Statements SINUS RHYTHM Compared to ECG 04/19/2022 18:43:55 Intraventricular conduction delay no longer present Electronically Signed On 06-09-2022 22:01:55 TOOL DRESSER by Rosalia Dia M.D. [id number]
[2022-06-09] MEDS: heparin 5,000 unit/mL INJ 1 mL 5000 UNIT SUBCUT (21:43)
[2022-06-09] MEDS: hyDRALAzine 50 mg Tablet 100 MG PO (21:43)
[2022-06-09] MEDS: docusate sodium 100 mg Capsule PO (21:44)
[2022-06-09] MEDS: cloNIDine 0.1 mg Tablet PO (23:21)
[2022-06-09] MEDS: acetaminophen 500 mg Tablet PO (23:23)
[2022-06-09] MEDS: cyclobenzaprine 10 mg Tablet PO (23:23)
[2022-06-09] MEDS: ondansetron 2 mg/ML SDV 2 mL 4 MG IVP (23:23)
[2022-06-10] VITALS (68 sets, daily range): BP systolic 146–226; BP diastolic 84–139; PULSE 66–98; RESP 10–32; TEMP 36.8; O2SAT 91–99
[2022-06-10] MEDS: oxyCODONE 5 mg IR Tab/Cap PO ×3 (02:00→17:38)
[2022-06-10 05:13] LABS: Basophils # 0.1 10^3/uL (0.0-0.1); Basophils % 0.9 %; Eosinophils # 0.4 10^3/uL (0.0-0.8); Eosinophils % 6.1 %; Hematocrit 23.2 % (42.0-52.0); Hemoglobin 7.3 g/dL (11.7-16.6); Lymphocytes # 0.5 10^3/uL (0.8-4.8); Lymphocytes % 7.8 %; Mean Corpuscular HGB Conc 31.5 g/dL (30.0-36.0); Mean Corpuscular Hemoglobin 28.7 pg (28.0-34.0); Mean Corpuscular Volume 91.3 fl (80-94); Monocytes # 0.5 10^3/uL (0.2-0.9); Monocytes % 7.6 %; Neutrophils # 4.96 10^3/uL (1.8-7.7); Neutrophils % 77.1 %; Nucleated Red Blood Cells % 0 %; Platelet Count 192 10^3/cmm (130-400); Red Blood Count 2.54 10^6/uL (4.1-5.3); Red Cell Distribution Width 17.7 % (12.1-15.1); White Blood Count 6.4 10^3/uL (4.0-10.0)
[2022-06-10 05:33] LABS: Alanine Aminotransferase 6 U/L (0-41); Albumin Level 3.4 g/dL (3.5-5.2); Alkaline Phosphatase 89 U/L (40-130); Anion Gap 15.1 (5-19); Aspartate Amino Transferase 9 U/L (0-40); Blood Urea Nitrogen 29 mg/dL (6-20); Calcium 9.2 mg/dL (8.5-10.5); Carbon Dioxide 28 mmol/L (22-29); Chloride 96 mmol/L (98-107); Globulin 2.7 g/dL (1.3-4.6); Glomerular Filtration Rate 11.4 mL/min (90-130); Glucose 77 mg/dL (65-115); Magnesium 1.8 mg/dL (1.7-2.3); Osmolality Calculated 283 mOsm/kg (285-295); Phosphorus 5.1 mg/dL (2.5-4.5); Potassium 5.1 mmol/L (3.5-5.1); Sodium 134 mmol/L (136-145); Total Bilirubin 0.5 mg/dL (0.15-1.2); Total Protein 6.1 g/dL (6.6-8.7)
[2022-06-10] MEDS: nitroglycerin drip 50 MG/250 ML PREMIX 24 MG IV (05:44)
--- NOTE | 2022-06-10 06:24 | PC.HD ---
Awaiting pt admission from ED for hours, to ICU appx 1845, extremely hypertensive on NTG gtt. Pt c/o pain to groin 01/[address] Dr Vargas in to see pt and pt medicated for pain and anxiety. Requested bipap and it was ordered and set up and applied. Consent obtained. HepB ab pos less than 1 year ago, August 2021, and HepB ag neg in April 2022. LFA fistula cannulated without difficulty and treatment initiated. Pt slept through treatment but remained hypertensive, no other issues, and treatment completed, blood returned, needles removed with pressure held to sites until bleeding stopped, and dressing applied. Pt then c/o severe headache, then N/V. SLIP LASTER aware and in with medication for pt. Report given to SLIP LASTER.
[2022-06-10] MEDS: ondansetron 2 mg/ML SDV 2 mL 4 MG IVP (08:20)
[2022-06-10] MEDS: clopidogrel 75 mg Tablet PO (09:28)
[2022-06-10] MEDS: aspirin 81 mg EC Tablet PO (09:28)
[2022-06-10] MEDS: pantoprazole DR 40 mg Tablet PO (09:28)
[2022-06-10] MEDS: docusate sodium 100 mg Capsule PO ×2 (09:28→17:38)
[2022-06-10] MEDS: hyDRALAzine 50 mg Tablet 100 MG PO ×3 (09:28→20:22)
[2022-06-10] MEDS: doxycycline 100 mg Tablet PO ×2 (09:29→17:38)
[2022-06-10] MEDS: isosorbide mononitrate ER 60 mg Tablet 120 MG PO (09:30)
[2022-06-10] MEDS: heparin 5,000 unit/mL INJ 1 mL 5000 UNIT SUBCUT ×2 (09:30→20:21)
--- NOTE | 2022-06-10 09:57 | PM.CONSULT ---
Providers/Reason For Consult Consulting Physician/Specialty*: [facility]/Nephrology Reason for Consult*: ESRD Attending Physician: Emanuel Nation MD Primary Care Provider: Mal Peres DO History of Present Illness History of Present Illness Mal Gibbs is a 41 year old male with past medical history of end-stage renal disease on hemodialysis per Thursday schedule, COPD, Cirrhosis with recurrent ascites, recent noncompliance with HD History of multiple admissions for hypertensive emergencies presented initially to the emergency department complaining of weakness, shortness of breath and groin pain. Patient was discharged after some pain medications and was felt the patient will require HD. At the dialysis center patient was incoherent and HD center sent back to the ED for evaluation. He underwent dialysis last night,. Review of Systems Narrative: other ROS negative Medications/Allergies Home Medications Medication Instructions Recorded Confirmed Last Taken Type umeclidinium 62.5 mcg/actuation 1 inh inhalation DAILY #30 ea 08/06/21 04/22/22 04/22/22 Rx blister powder for inhalation (Incruse Ellipta) ferric citrate 210 mg iron tablet 420 mg PO TID 11/03/21 04/22/22 04/22/22 History (Auryxia) lactulose 20 gram/30 mL oral 10 g PO TID PRN Constipation 11/03/21 04/22/22 04/17/22 History solution lisinopril 40 mg tablet 40 mg PO DAILY 11/03/21 04/22/22 04/22/22 History minoxidil 2.5 mg tablet 2.5 mg PO BID 11/22/21 04/22/22 04/22/22 History nitroglycerin 0.4 mg sublingual 0.4 mg sublingual Q5M PRN Chest 12/02/21 04/22/22 04/17/22 Rx tablet Pain #30 tabs clopidogrel 75 mg tablet 75 mg PO DAILY #90 tabs 01/28/22 04/22/22 04/22/22 Rx albuterol sulfate 90 mcg/actuation 2 puff inhalation Q6H PRN 02/21/22 04/22/22 04/16/22 History aerosol inhaler Shortness Of Breath Or Wheezing amlodipine 10 mg tablet 10 mg PO BEDTIME 02/21/22 04/22/22 04/22/22 History aspirin 81 mg tablet,delayed 81 mg PO DAILY 02/21/22 04/22/22 04/22/22 History release clonidine HCl 0.2 mg tablet 0.2 mg PO TID 02/21/22 04/22/22 04/22/22 History pantoprazole 40 mg tablet,delayed 40 mg PO DAILY 02/21/22 04/22/22 04/22/22 History release DME - BIPAP #1 ea 02/25/22 04/22/22 03/20/22 Rx DME - Oxygen #1 ea 02/25/22 04/22/22 03/20/22 Rx vit B,C-folic ac 800 mcg-zinc 12.5 1 tab PO QPM 03/14/22 04/22/22 04/22/22 History mg-selen-D3 2,000 unit-vit E tablet (RenaPlex-D) clonazepam 0.5 mg tablet 0.5 mg PO BEDTIME #30 tabs 04/10/22 04/22/22 04/21/22 Rx cyclobenzaprine 10 mg tablet 10 mg PO Q12H PRN muscle spasm #30 04/10/22 04/22/22 04/16/22 Rx tabs quetiapine 25 mg tablet 25 mg PO DAILY #90 tabs 04/10/22 04/22/22 04/21/22 Rx carvedilol 25 mg tablet 50 mg PO BID 04/22/22 04/22/22 04/22/22 History hydralazine 100 mg tablet 100 mg PO TID #270 tabs 04/24/22 04/24/22 Unknown Rx isosorbide mononitrate 120 mg 120 mg PO DAILY #90 tabs 04/24/22 04/24/22 Unknown Rx tablet,extended release 24 hr doxycycline hyclate 100 mg capsule 100 mg PO BID 06/09/22 Unknown History polyethylene glycol 3350 17 gram 17 g PO DAILY 06/09/22 Unknown History oral powder packet (Miralax) warfarin 1 mg tablet See Rx Instructions .Route .COMPLEX 06/09/22 Unknown History Allergies Allergy/AdvReac Type Severity Reaction Status Date / Time nifedipine Allergy KATERINY-Stevenll Verified 04/16/22 07:57 Lip/Tongue/Throat Current Medications Generic Name Dose Route Start Last Admin Trade Name Freq PRN Reason Stop Dose Admin Acetaminophen 500 mg 06/09/22 18:56 06/09/22 23:23 Acetaminophen 500 Mg Tablet PO 500 mg Q6H PRN Administration MILD PAIN OR INCREASE TEMP Alprazolam 0.5 mg 06/09/22 18:56 06/09/22 19:12 Alprazolam 0.5 Mg Tablet PO 0.5 mg TID PRN Administration ANXIETY Aspirin 81 mg 06/10/22 09:00 06/10/22 09:28 Aspirin 81 Mg Ec Tablet PO 81 mg DAILY ARTEM Administration Clonidine HCl 0.1 mg 06/09/22 18:56 06/09/22 23:21 Clonidine 0.1 Mg Tablet PO 0.1 mg Q4H PRN Administration BP > 180/110 Clopidogrel Bisulfate 75 mg 06/10/22 09:00 06/10/22 09:28 Clopidogrel 75 Mg Tablet PO 75 mg DAILY ARTEM Administration Cyclobenzaprine HCl 10 mg 06/09/22 18:56 06/09/22 23:23 Cyclobenzaprine 10 Mg Tablet PO 10 mg Q12H PRN Administration muscle spasm Docusate Sodium 100 mg 06/09/22 18:56 06/10/22 09:28 Docusate Sodium 100 Mg Capsule PO 100 mg BID [facility] Administration Doxycycline Monohydrate 100 mg 06/10/22 09:00 06/10/22 09:29 Doxycycline 100 Mg Tablet PO 100 mg BID ARTEM Administration Protocol Heparin Sodium (Porcine) 5,000 unit 06/09/22 19:45 06/10/22 09:30 Heparin 5,000 Unit/Ml Inj 1 Ml SUBCUT 5,000 unit Q12H ARTEM Administration Hydralazine HCl 100 mg 06/09/22 21:00 06/10/22 09:28 Hydralazine 50 Mg Tablet PO 100 mg TID ARTEM Administration Nitroglycerin/Dextrose 50 mg in 250 mls @ 0 mls/hr 06/09/22 18:15 06/10/22 05:44 Nitroglycerin Drip IV 80 mcg/min .Q0M ARTEM 24 mls/hr Administration Protocol Per Protocol Isosorbide Mononitrate 120 mg 06/10/22 09:00 06/10/22 09:30 Isosorbide Mononitrate Er 60 Mg Tablet PO 120 mg DAILY ARTEM Administration Ondansetron HCl 4 mg 06/09/22 18:56 06/10/22 08:20 Ondansetron 2 Mg/Ml Sdv 2 Ml IVP 4 mg Q6H PRN Administration NAUSEA AND VOMITING Oxycodone HCl 5 mg 06/09/22 18:56 06/10/22 09:28 Oxycodone 5 Mg Ir Tab/Cap PO 5 mg Q6H PRN Administration MODERATE TO SEVERE PAIN Pantoprazole Sodium 40 mg 06/10/22 09:00 06/10/22 09:[address] 40 Mg Tablet PO 40 mg DAILY ARTEM Administration PFSH Acute PFSH: Medical History (Updated 06/09/22 @ 18:23 by Anya Vargas MD) Abdominal ascites history of intermittent paracentesis, transudative fluid; prior work up has included negative biopsy, ceruloplasmin level normal, low iron, high ferritin, normal TIBC, negative HIV, hepatitis panel negative, JESÚS/SCL 70/double-stranded DNA antibodies negative, Alpha-fetoprotein level unremarkable, nonalcoholic by history Anemia chronic kidney disease Anxiety with depression Arteriovenous fistula for hemodialysis in place, secondary Atherosclerosis of coronary artery Stent and balloon angioplasty to proximal 1 OM branch Chronic abdominal pain Chronic respiratory failure on home oxygen and bipap Congestive heart failure preserved ejection fraction COPD (chronic obstructive pulmonary disease) COVID 05/25 Degenerative disc disease, lumbar ESRD on dialysis Generalized anxiety disorder with panic attacks History of coronary angiogram 11/2021 - patent stent Hypertension uncontrolled Hypertensive emergency recurrent episodes Inguinal hernia Nicotine dependence, cigarettes, with other nicotine-induced disorders Pulmonary embolism 09/21 CTA inconclusive for very tiny peripheral LEFT lower lobe pulmonary artery sub segmental emboli versus poor opacification. Pulmonary hypertension Umbilical hernia Urethral stricture Surgical History H/O hand surgery Amputation right 2&3 fingers 2017 History of adenoidectomy Stented coronary artery Family History Father No problems noted. Other Hypertension Social History (Updated 06/09/22 @ 17:19 by Anya Vargas MD) Smoking and tobacco status: current every day smoker cigarettes Packs smoked per day: 1.5 Years cigarettes smoked: 21 [ Other cigarette details: started age 20, currently 0.5ppd ] Alcohol intake: never Marital status: Number of children: 3 Current occupational status: disabled Vitals/I&O/Wt Last Vital Signs Temp 98.6 F 06/09/22 23:30 Pulse 83 06/10/22 08:00 Resp 15 06/10/22 09:28 BP 203/119 06/10/22 08:00 Pulse Ox 95 06/10/22 09:28 O2 Del Method 06/10/22 08:00 O2 Flow Rate 3 06/09/22 18:45 FiO2 28 06/10/22 08:00 06/09/22 06/10/22 06/10/22 22:59 06:59 14:59 Intake Total 130.55 / 130.55 826.6 / 957.15 60 / 60 Output Total 3544 / 3544 Balance 130.55 / 130.55 -2717.4 / -2586.85 60 / 60 Weight last 48 hrs Weight 79.379 kg Weight 79.1 kg Weight 56.699 kg Physical Exam Narrative: Patient sleeping, on 40% FiO2 with BiPAP, no acute distress, crackles bilaterally per report, S1-S2 regular rate and rhythm per report, has edema. Data 06/10/22 04:17 06/10/22 04:17 A&P Assessment and plan (1) ESRD on dialysis: Plan 1. ESRD, usual HD MWF, status post HD last night, will plan another session of dialysis today for volume removal, 3 hours, 2K, 3 L ultrafiltration, patient should be on fluid and salt restriction 2. Volume overload, chronic CHF 3. H/o liver cirrhosis and ascites 4. History of hypertensive emergencies-multiple admissions in the past, blood pressures in 200s systolic, restart home meds and plan for HD today Patient evaluated using audiovisual cart, time spent 40 minutes. Consult Attestations Medical Necessity Statement: see above Time Spent in Patient Care: 16 - 35 minutes Coding Level of Care Code Acute Code for Chg Fwd Diagnoses ESRD on dialysis N18.6; Z99.2
--- NOTE | 2022-06-10 10:22 | PC.CHAP ---
Pastoral Care Encounter/Spiritual Assessment Type of Contact [] Declined color expert visit [] Patient/Family/Request visit [] Outpatient visit [] Follow-up visit [] Physician referral [] Code/Alert [x] Routine visit [] Staff referral [] Actively dying [] Patient sleeping [] Family support [] [] Out of room [] Palliative care [] [x] Receiving care in room [] Pre-surgical visit [] Trauma [] Long length of stay [x] ICU visit [x] Other: setter outside room Relational/Emotional Strength [] Patient feels connected with others/family/visitors/staff [] Distress [] Loneliness/isolation [] Abandonment Spirituality of Patient [] Person of Ct [] Attends Yarsani of their Ct [] Believes in Prayer [] Reads Bible or Christianity materials [] There are Spiritual issues to be addressed Centerpuncher Interventions [x] Prayer [] Active listening [] Non-anxious presence [] Spiritual/emotional support [] Crisis/trauma care [] Spiritual counseling [] Bereavement support [] Provided bereavement packet [] Provided Bible/devotional materials [] Provided toy/stuffed animal, coloring book to patient or family member [] Provided Communion [] Anointing/[place] [] Salvation [x] Completed spiritual assessment [] Other: Impact on Illness or Injury [] Angry [] Fearful [] Anxious [] Often cries [] Exhaustion [] Unable to work [] Unable to attend yarsani [] Unable to walk/stand [] Unable to read [] Unable to drive [] Unable to eat/drink [] Unable to sleep [] Unable to be with family [] Patient intubated [] Other: Summary Time spent with patient
--- NOTE | 2022-06-10 11:30 | P.PN_ITS ---
Subjective Subjective: Patient is hypertensive added Cardene drip Complaining of headache Patient is endorsing suicidal ideation I have spoken with Dr. Perales to see him in the ICU Patient is on suicidal precautions, he is not a 96-hour hold yet Hemoglobin 7.3 Vitals/I&O/Wt Last Vital Signs Temp 98.6 F 06/09/22 23:30 Pulse 89 06/10/22 10:22 Resp 15 06/10/22 09:28 BP 203/119 06/10/22 08:00 Pulse Ox 93 06/10/22 10:22 O2 Del Method 06/10/22 08:00 O2 Flow Rate 3 06/09/22 18:45 FiO2 35 06/10/22 10:22 06/09/22 06/10/22 06/10/22 22:59 06:59 14:59 Intake Total 130.55 / 130.55 826.6 / 957.15 60 / 60 Output Total 3544 / 3544 Balance 130.55 / 130.55 -2717.4 / -2586.85 60 / 60 Weight last 48 hrs Weight 79.379 kg Weight 79.1 kg Weight 56.699 kg Physical Exam 2 Narrative: Patient is able to communicate Endorsing suicidal ideation S1, S2 sinus tachycardia, nonfocal neuro exam Complaining of headache No active chest pain No audible stridor or wheezing Currently on room air Hypertensive currently on nitroglycerin drip Unkept appearance Left arm fistula Right arm swelling noted Data 06/10/22 04:17 06/10/22 04:17 A&P Assessment and plan (1) COPD (chronic obstructive pulmonary disease): (2) Congestive heart failure: (3) Anemia: Qualifiers: Anemia type: due to chronic kidney disease Chronic kidney disease stage: on chronic dialysis Qualified Code(s): N18.6 - End stage renal disease; D63.1 - Anemia in chronic kidney disease; Z99.2 - Dependence on renal dialysis (4) Abdominal ascites: (5) ESRD on dialysis: (6) Nicotine dependence, cigarettes, with other nicotine-induced disorders: (7) Hypertensive emergency: (8) Uses bilevel positive airway pressure (BPAP) ventilation at home: (9) Scrotal edema: (10) Epididymitis: Plan Generalized weakness and fatigue Related to end-stage renal disease Dialysis dependent Nephro is consulted he gets dialyzed Thursday Hypertensive emergency I will add Cardene drip titrate off nitroglycerin because of headache Suicidal ideation: Requested psychiatry evaluation On suicidal precautions Renal dialysis diet Scrotal edema, bilateral epididymitis, I will continue doxycycline for 10 days give ceftriaxone 500 mg IM, patient does not make enough urine to test for STDs, will attempt to obtain urine sample, I will give him 250mg IM and ceftriaxone CHF without acute exacerbation current fluid overload related to end-stage renal disease DVT prophylaxis heparin Low back pain responding to opioids, Insomnia: Judicious use of sedatives and opioids Lives with his mom, going through divorce Full code Attestations Medical Necessity Statement*: Continue ICU management Coding Level of Care Code 35784 Diagnoses COPD (chronic obstructive pulmonary disease) J44.9 Congestive heart failure I50.9 Anemia N18.6; D63.1; Z99.2 Anemia type: due to chronic kidney disease Chronic kidney disease stage: on chronic dialysis Abdominal ascites R18.8 ESRD on dialysis N18.6; Z99.2 Nicotine dependence, cigarettes, with other nicotine-induced disorders F17.218 Hypertensive emergency I16.1 Uses bilevel positive airway pressure (BPAP) ventilation at home Z99.89 Scrotal edema N50.89 Epididymitis N45.1
[2022-06-10] MEDS: cefTRIAXone 250 MG in water for injection-sterile 0.9 ML IM (13:07)
[2022-06-10] MEDS: ALPRAZolam 0.5 mg Tablet PO ×2 (13:14→20:22)
[2022-06-10] MEDS: labetalol 300 MG in sodium chloride 0.9% 240 ML 30 MG IV (14:05)
[2022-06-10] MEDS: cyclobenzaprine 10 mg Tablet PO (20:22)
[2022-06-10] MEDS: cloNIDine 0.1 mg Tablet PO (20:22)
[2022-06-11] VITALS (82 sets, daily range): BP systolic 128–225; BP diastolic 81–131; PULSE 61–84; RESP 10–24; TEMP 36.3–36.5; O2SAT 90–100
[2022-06-11 03:39] LABS: Basophils # 0.1 10^3/uL (0.0-0.1); Eosinophils # 0.4 10^3/uL (0.0-0.8); Eosinophils % 7.4 %; Hemoglobin 6.8 g/dL (11.7-16.6); Lymphocytes # 0.7 10^3/uL (0.8-4.8); Lymphocytes % 13.6 %; Mean Corpuscular HGB Conc 30.9 g/dL (30.0-36.0); Mean Corpuscular Hemoglobin 28.9 pg (28.0-34.0); Mean Corpuscular Volume 93.6 fl (80-94); Mean Platelet Volume 10.6 fL (7.4-10.4); Monocytes # 0.5 10^3/uL (0.2-0.9); Monocytes % 9.7 %; Neutrophils # 3.51 10^3/uL (1.8-7.7); Neutrophils % 68.3 %; Nucleated Red Blood Cells % 0 %; Platelet Count 179 10^3/cmm (130-400); Red Blood Count 2.35 10^6/uL (4.1-5.3); Red Cell Distribution Width 17.4 % (12.1-15.1); White Blood Count 5.1 10^3/uL (4.0-10.0)
[2022-06-11 03:46] LABS: Anion Gap 13.8 (5-19); Blood Urea Nitrogen 23 mg/dL (6-20); Calcium 8.9 mg/dL (8.5-10.5); Carbon Dioxide 29 mmol/L (22-29); Chloride 98 mmol/L (98-107); Glomerular Filtration Rate 13.3 mL/min (90-130); Glucose 99 mg/dL (65-115); Magnesium 1.9 mg/dL (1.7-2.3); Osmolality Calculated 286 mOsm/kg (285-295); Potassium 4.8 mmol/L (3.5-5.1); Sodium 136 mmol/L (136-145)
[2022-06-11] MEDS: cloNIDine 0.1 mg Tablet PO ×3 (06:50→21:47)
[2022-06-11] MEDS: oxyCODONE 5 mg IR Tab/Cap PO ×3 (06:51→19:21)
[2022-06-11] MEDS: docusate sodium 100 mg Capsule PO ×2 (08:39→17:33)
[2022-06-11] MEDS: pantoprazole DR 40 mg Tablet PO (08:39)
[2022-06-11] MEDS: clopidogrel 75 mg Tablet PO (08:39)
[2022-06-11] MEDS: cyclobenzaprine 10 mg Tablet PO ×2 (08:39→20:16)
[2022-06-11] MEDS: isosorbide mononitrate ER 60 mg Tablet 120 MG PO (08:39)
[2022-06-11] MEDS: ALPRAZolam 0.5 mg Tablet PO ×3 (08:39→23:45)
[2022-06-11] MEDS: hyDRALAzine 50 mg Tablet 100 MG PO ×3 (08:39→20:16)
[2022-06-11] MEDS: aspirin 81 mg EC Tablet PO (08:39)
[2022-06-11] MEDS: doxycycline 100 mg Tablet PO ×2 (08:39→17:33)
[2022-06-11] MEDS: acetaminophen 500 mg Tablet PO ×2 (08:40→23:45)
[2022-06-11] MEDS: nicotine 14 mg Patch 1 PATCH TRANSDERMA (08:40)
--- NOTE | 2022-06-11 08:40 | PM.PN ---
Subjective Subjective: BP ELEVATED Vitals/I&O/Wt Last Vital Signs Temp 98.2 F 06/10/22 20:00 Pulse 77 06/11/22 08:00 Resp 18 06/11/22 06:51 BP 225/123 06/11/22 06:50 Pulse Ox 95 06/11/22 08:00 O2 Del Method 06/10/22 19:30 O2 Flow Rate 5 06/10/22 17:30 FiO2 35 06/11/22 08:00 06/10/22 06/11/22 06/11/22 22:59 06:59 14:59 Intake Total 878.9 / 1281.3 480 / 1761.3 Balance 878.9 / 1281.3 480 / 1761.3 Weight last 48 hrs Weight 78.063 kg Weight 79.379 kg Weight 79.1 kg Weight 56.699 kg Physical Exam Narrative: awake , alert , no acute distress, crackles bilaterally per report, S1-S2 regular rate and rhythm per report, has edema. Data 06/11/22 02:57 06/11/22 02:57 A&P Assessment and plan (1) ESRD on dialysis: Plan 1. ESRD, usual HD MWF, HD today 2. Volume overload, chronic CHF 3. H/o liver cirrhosis and ascites 4. History of hypertensive emergencies-multiple admissions in the past, blood pressures in 200s systolic, restarted home meds and plan for HD today- added coreg and Losartan today Patient evaluated using audiovisual cart, time spent 40 minutes. Attestations Medical Necessity Statement*: Continue medical management requiring more than 2 midnight Coding Level of Care Code Acute Code for Chg Fwd Diagnoses ESRD on dialysis N18.6; Z99.2
--- NOTE | 2022-06-11 08:52 | P.PN_ITS ---
Subjective Subjective: Appreciate nephro recommendations Patient is still hypertensive I have requested ICU nurse to start Cardene drip if diastolic blood pressure remains above 110 Losartan and AV jill blocking agents resumed Patient is stating his headache is improved Complaining of abdominal pain, he had an appointment Dr. Daley outpatient for paracentesis Vitals/I&O/Wt Last Vital Signs Temp 98.2 F 06/10/22 20:00 Pulse 77 06/11/22 08:00 Resp 18 06/11/22 06:51 BP 225/123 06/11/22 06:50 Pulse Ox 95 06/11/22 08:00 O2 Del Method 06/10/22 19:30 O2 Flow Rate 5 06/10/22 17:30 FiO2 35 06/11/22 08:00 06/10/22 06/11/22 06/11/22 22:59 06:59 14:59 Intake Total 878.9 / 1281.3 480 / 1761.3 Balance 878.9 / 1281.3 480 / 1761.3 Weight last 48 hrs Weight 78.063 kg Weight 79.379 kg Weight 79.1 kg Weight 56.699 kg Physical Exam 2 Narrative: Patient is not complaining of headache Currently on 2 L nasal cannula Abdomen is tense, tender to palpate S1, S2 No audible stridor or wheezing Awake and alert GCS 15 Left arm fistula Lower extremity no edema Able to answer my questions appropriately Data 06/11/22 02:57 06/11/22 02:57 A&P Assessment and plan (1) Epididymitis: (2) COPD (chronic obstructive pulmonary disease): (3) Anemia: (4) Abdominal ascites: (5) ESRD on dialysis: (6) Nicotine dependence, cigarettes, with other nicotine-induced disorders: (7) Low back pain: (8) Hypertension: (9) Inguinal hernia: (10) Scrotal edema: (11) Hypertensive emergency: Plan Hypertensive emergency I have asked ICU nurse to start Cardene drip if blood pressure does not respond to oral antihypertensive regimen Target blood pressure below 180/100 mmHg Patient has been started on Coreg and losartan as per nephro Headache is improved End-stage renal disease Thursday Due for dialysis today Anemia of chronic disease No active GI bleed He will get erythropoietin and blood transfusion most likely around dialysis Abdominal tenderness Start ceftriaxone 2 g daily as prophylaxis We will request therapeutic paracentesis as well He was due for paracentesis tomorrow by Dr. Daley Epididymitis he has received STD dose of ceftriaxone and doxycycline, COPD without significant worsening Currently doing well on 2 L nasal cannula Laboratory data reviewed, anemia of chronic disease present We will coordinate with business management intern Suicidal ideation Dr. Perales consulted Renal diet DVT prophylaxis on Attestations Medical Necessity Statement*: Continue ICU management Coding Level of Care Code 18694 Moderate MDM includes risk/complexity, reviewing previous or external records, reviewing test results, ordering lab/other test(s) and discussion of management or test(s) w/ other healthcare professional Diagnoses Epididymitis N45.1 COPD (chronic obstructive pulmonary disease) J44.9 Anemia D64.9 Abdominal ascites R18.8 ESRD on dialysis N18.6; Z99.2 Nicotine dependence, cigarettes, with other nicotine-induced disorders F17.218 Low back pain M54.50 Hypertension I10 Inguinal hernia K40.90 Scrotal edema N50.89 Hypertensive emergency I16.1 Time Spent (min) 40
--- NOTE | 2022-06-11 08:53 | US_ITS ---
WS: [id number] Abdominal ultrasound, limited. History: Evaluate for ascites. Comparison: None. All 4 quadrants are imaged by ultrasound to evaluate for ascites. There is only a small amount of asc ites in all 4 quadrants. This does correspond to the recent CT. US/US abdomen lmt fluid [id number] IMPRESSION: Insufficient ascites for paracentesis.
[2022-06-11] MEDS: losartan 50 mg Tablet 100 MG PO (08:59)
[2022-06-11] MEDS: cefTRIAXone 2,000 MG in sodium chloride 0.9% (plus) 50 ML 100 MG IV (09:00)
[2022-06-11] MEDS: carvedilol 25 mg Tablet PO ×2 (09:00→17:33)
--- NOTE | 2022-06-11 10:29 | W.PM.PSYCONS ---
Providers/Reason for Consult Consulting Physican/Specialty*: Hugh Perales MD. Psychiatry. Reason for Consult*: Suicidal thoughts. Attending Physician: Emanuel Nation MD Primary Care Provider: Mal Peres DO Psych Consult HPI History of Present Illness Mal Gibbs is a 41 year old male who presented to the emergency department with the following report: Chief complaint: Altered Mental Status Stated complaint: INCOHERENT Time Seen by Provider: 06/09/22 12:36 Source: patient History of Present Illness: 41-year-old male returns to the emergency room he just been here very briefly ago. He was discharged back to dialysis The dialysis they did not feel he was stable and they sent him back to the emergency room while he was here previously he was hypertensive and is complaining of abdominal and groin pain. He had a moderate amount of dependent edema in the scrotum and he had a reducible right inguinal hernia CT of his abdomen was negative at that time. He did have a moderate anemia but it was thought that that was likely related to being fluid overloaded his vital signs actually showed hypertension. And it was felt that it was best to have him dialyzed first. While he was here is extremely anxious which is often the case with this patient he was given Ativan. He was complaining of severe pain he was given 2 mg of morphine before leaving to believe resulted in him being over sedate. When he returns here he is awake and alert answers questions appropriately. He is still very anxious. Patient has multiple comorbidities frequently is in the emergency room complaining of difficulty breathing usually during those times he has severe anxiety when he has normal oxygen saturations. It seems most often when he becomes fluid overloaded he becomes more uncomfortable and more anxious. Onset (ago): hour(s) Severity: moderate Pain Consistency: constant Relieving factors: none Exacerbating factors: none Associated symptoms: Reports confusion, decreased appetite, dyspnea, malaise, short of breath and weakness; Deny chest pain, cough, diaphoresis, fevers/chills, headache(s), nausea, rash, palpitations, seizures, syncope or vomiting Treatments prior to arrival: none. He was admitted to the ICU secondary to missing his dialysis reportedly with sequela. Psychiatric consult was requested secondary to suicidal statements. He presents today fairly lethargic and often needing to be aroused to answer questions. He does endorse having depression and that he has struggled with his needing dialysis at such a young age. He denies any significant psychiatric history and we discussed the risks, benefits and alternatives of starting Prozac 20 mg p.o. every morning and he understood and agreed to proceed as is documented in this note. We discussed Prozac as a reasonable option given it not being removed through the dialysis process. He did suggest that suicide was not something we should be concerned about. He reports that he was being honest about how he felt but that he was too chicken to do something like that to himself. We reviewed some of the psychosocial information and starts when she confirmed but no additional salient or germane information noted. Meds Home Medications and Allergies Home Medications Medication Instructions Recorded Confirmed Last Taken Type umeclidinium 62.5 mcg/actuation 1 inh inhalation DAILY #30 ea 08/06/21 04/22/22 04/22/22 Rx blister powder for inhalation (Incruse Ellipta) ferric citrate 210 mg iron tablet 420 mg PO TID 11/03/21 04/22/22 04/22/22 History (Auryxia) lactulose 20 gram/30 mL oral 10 g PO TID PRN Constipation 11/03/21 04/22/22 04/17/22 History solution lisinopril 40 mg tablet 40 mg PO DAILY 11/03/21 04/22/22 04/22/22 History minoxidil 2.5 mg tablet 2.5 mg PO BID 11/22/21 04/22/22 04/22/22 History nitroglycerin 0.4 mg sublingual 0.4 mg sublingual Q5M PRN Chest 12/02/21 04/22/22 04/17/22 Rx tablet Pain #30 tabs clopidogrel 75 mg tablet 75 mg PO DAILY #90 tabs 01/28/22 04/22/22 04/22/22 Rx albuterol sulfate 90 mcg/actuation 2 puff inhalation Q6H PRN 02/21/22 04/22/22 04/16/22 History aerosol inhaler Shortness Of Breath Or Wheezing amlodipine 10 mg tablet 10 mg PO BEDTIME 02/21/22 04/22/22 04/22/22 History aspirin 81 mg tablet,delayed 81 mg PO DAILY 02/21/22 04/22/22 04/22/22 History release clonidine HCl 0.2 mg tablet 0.2 mg PO TID 02/21/22 04/22/22 04/22/22 History pantoprazole 40 mg tablet,delayed 40 mg PO DAILY 02/21/22 04/22/22 04/22/22 History release DME - BIPAP #1 ea 02/25/22 04/22/22 03/20/22 Rx DME - Oxygen #1 ea 02/25/22 04/22/22 03/20/22 Rx vit B,C-folic ac 800 mcg-zinc 12.5 1 tab PO QPM 03/14/22 04/22/22 04/22/22 History mg-selen-D3 2,000 unit-vit E tablet (RenaPlex-D) clonazepam 0.5 mg tablet 0.5 mg PO BEDTIME #30 tabs 04/10/22 04/22/22 04/21/22 Rx cyclobenzaprine 10 mg tablet 10 mg PO Q12H PRN muscle spasm #30 04/10/22 04/22/22 04/16/22 Rx tabs quetiapine 25 mg tablet 25 mg PO DAILY #90 tabs 04/10/22 04/22/22 04/21/22 Rx carvedilol 25 mg tablet 50 mg PO BID 04/22/22 04/22/22 04/22/22 History hydralazine 100 mg tablet 100 mg PO TID #270 tabs 04/24/22 04/24/22 Unknown Rx isosorbide mononitrate 120 mg 120 mg PO DAILY #90 tabs 04/24/22 04/24/22 Unknown Rx tablet,extended release 24 hr doxycycline hyclate 100 mg capsule 100 mg PO BID 06/09/22 Unknown History polyethylene glycol 3350 17 gram 17 g PO DAILY 06/09/22 Unknown History oral powder packet (Miralax) warfarin 1 mg tablet See Rx Instructions .Route .COMPLEX 06/09/22 Unknown History Allergies Allergy/AdvReac Type Severity Reaction Status Date / Time nifedipine Allergy KATERINY-Stevenll Verified 04/16/22 07:57 Lip/Tongue/Throat Current Medications Current Medications Generic Name Dose Route Start Last Admin Trade Name Freq PRN Reason Stop Dose Admin Acetaminophen 500 mg 06/09/22 18:56 06/11/22 08:40 Acetaminophen 500 Mg Tablet PO 500 mg Q6H PRN Administration MILD PAIN OR INCREASE TEMP Alprazolam 0.5 mg 06/09/22 18:56 06/11/22 08:39 Alprazolam 0.5 Mg Tablet PO 0.5 mg TID PRN Administration ANXIETY Aspirin 81 mg 06/10/22 09:00 06/11/22 08:39 Aspirin 81 Mg Ec Tablet PO 81 mg DAILY ARTEM Administration Carvedilol 25 mg 06/11/22 09:00 06/11/22 09:00 Carvedilol 25 Mg Tablet PO 25 mg BID ARTEM Administration Clonidine HCl 0.1 mg 06/09/22 18:56 06/11/22 06:50 Clonidine 0.1 Mg Tablet PO 0.1 mg Q4H PRN Administration BP > 180/110 Clopidogrel Bisulfate 75 mg 06/10/22 09:00 06/11/22 08:39 Clopidogrel 75 Mg Tablet PO 75 mg DAILY ARTEM Administration Cyclobenzaprine HCl 10 mg 06/09/22 18:56 06/11/22 08:39 Cyclobenzaprine 10 Mg Tablet PO 10 mg Q12H PRN Administration muscle spasm Docusate Sodium 100 mg 06/09/22 18:56 06/11/22 08:39 Docusate Sodium 100 Mg Capsule PO 100 mg BID ARTEM Administration Doxycycline Monohydrate 100 mg 06/10/22 09:00 06/11/22 08:39 Doxycycline 100 Mg Tablet PO 100 mg BID ARTEM Administration Protocol Heparin Sodium (Porcine) 5,000 unit 06/09/22 19:45 06/10/22 20:21 Heparin 5,000 Unit/Ml Inj 1 Ml SUBCUT 5,000 unit Q12H ARTEM Administration Hydralazine HCl 100 mg 06/09/22 21:00 06/11/22 08:39 Hydralazine 50 Mg Tablet PO 100 mg TID RATEM Administration Nitroglycerin/Dextrose 50 mg in 250 mls @ 0 mls/hr 06/09/22 18:15 06/10/22 14:05 Nitroglycerin Drip IV 0 mcg/min .Q0M ARTEM 0 mls/hr Titration Protocol Per Protocol Labetalol HCl 300 mg/ Sodium 300 mls @ 0 mls/hr 06/10/22 10:00 06/10/22 20:30 Chloride IV Infused .Q0M ARTEM Titration Protocol Per Protocol Ceftriaxone Sodium 2,000 mg/ 50 mls @ 100 mls/hr 06/11/22 09:00 06/11/22 09:00 Sodium Chloride IV 100 mls/hr Q24H ARTEM Administration Protocol Isosorbide Mononitrate 120 mg 06/10/22 09:00 06/11/22 08:39 Isosorbide Mononitrate Er 60 Mg Tablet PO 120 mg DAILY ARTEM Administration Losartan Potassium 100 mg 06/11/22 09:00 06/11/22 08:59 Losartan 50 Mg Tablet PO 100 mg DAILY ARTEM Administration Nicotine 1 patch 06/09/22 18:56 06/11/22 08:40 Nicotine 14 Mg Patch TRANSDERMA 1 patch DAILY PRN Administration nicotine withdrawal Ondansetron HCl 4 mg 06/09/22 18:56 06/10/22 08:20 Ondansetron 2 Mg/Ml Sdv 2 Ml IVP 4 mg Q6H PRN Administration NAUSEA AND VOMITING Oxycodone HCl 5 mg 06/09/22 18:56 06/11/22 06:51 Oxycodone 5 Mg Ir Tab/Cap PO 5 mg Q6H PRN Administration MODERATE TO SEVERE PAIN Pantoprazole Sodium 40 mg 06/10/22 09:00 06/11/22 08:[address] 40 Mg Tablet PO 40 mg DAILY ARTEM Administration PFSH NPU PFSH: Medical History (Updated 06/24/22 @ 07:20 by Hugh Perales MD) Abdominal ascites history of intermittent paracentesis, transudative fluid; prior work up has included negative biopsy, ceruloplasmin level normal, low iron, high ferritin, normal TIBC, negative HIV, hepatitis panel negative, JESÚS/SCL 70/double-stranded DNA antibodies negative, Alpha-fetoprotein level unremarkable, nonalcoholic by history Altered mental status Anemia chronic kidney disease Anxiety Anxiety with depression Arteriovenous fistula for hemodialysis in place, secondary Atherosclerosis of coronary artery Stent and balloon angioplasty to proximal 1 OM branch Chronic abdominal pain Chronic respiratory failure on home oxygen and bipap Congestive heart failure preserved ejection fraction COPD (chronic obstructive pulmonary disease) COVID 05/25 Degenerative disc disease, lumbar Epididymitis ESRD on dialysis ESRD on dialysis Generalized anxiety disorder with panic attacks History of coronary angiogram 11/2021 - patent stent History of home oxygen therapy Hypertension uncontrolled Hypertension Hypertensive emergency recurrent episodes Hypertensive emergency Inguinal hernia Low back pain Nicotine dependence, cigarettes, with other nicotine-induced disorders Pulmonary embolism 09/21 CTA inconclusive for very tiny peripheral LEFT lower lobe pulmonary artery sub segmental emboli versus poor opacification. Pulmonary hypertension Scrotal edema Umbilical hernia Urethral stricture Uses bilevel positive airway pressure (BPAP) ventilation at home Surgical History H/O hand surgery Amputation right 2&3 fingers 2017 History of adenoidectomy Stented coronary artery Family History Father No problems noted. Other Hypertension Social History (Updated 06/09/22 @ 17:19 by Anya Vargas MD) Smoking and tobacco status: current every day smoker cigarettes Packs smoked per day: 1.5 Years cigarettes smoked: 21 [ Other cigarette details: started age 20, currently 0.5ppd ] Alcohol intake: never Marital status: Number of children: 3 Current occupational status: disabled Mental Status Exam MSE Comments: This is a slender white male in hospital gown with limited grooming and eye contact. No abnormal movements except for mild psychomotor agitation. Mostly cooperative with exam in moderate distress. Speech was decreased rate and volume. Mood described as depressed and frustrated, affect congruent. Thought process organized. Thought content: Patient denied suicidal or homicidal ideation but does endorse having said that. There are no delusions reported or noted, he denies any auditory or visual hallucinations. Attention and concentration are limited and memory is mostly reliable but none were formally tested. He is alert and oriented x3. Insight and judgment appear fair impulse control limited. Vitals/I&O/Wt Last Vital Signs Temp 97.3 F L 06/11/22 08:30 Pulse 83 06/11/22 09:00 Resp 20 H 06/11/22 09:00 BP 203/123 06/11/22 09:00 Pulse Ox 94 06/11/22 09:00 O2 Del Method 06/11/22 09:00 O2 Flow Rate 3 06/11/22 09:00 FiO2 35 06/11/22 08:00 06/10/22 06/11/22 06/11/22 22:59 06:59 14:59 Intake Total 878.9 / 1281.3 480 / 1761.3 480 / 480 Balance 878.9 / 1281.3 480 / 1761.3 480 / 480 Weight last 48 hrs Weight 78.063 kg Weight 79.379 kg Weight 79.1 kg Weight 56.699 kg Data NPU 06/11/22 02:57 06/11/22 02:57 A&P Assessment and plan (1) Depression: (2) Suicidal thoughts: (3) Adjustment disorder with mixed disturbance of emotions and conduct: Plan This is a 41-year-old white male with a long history of medical comorbidities including kidney failure requiring dialysis who presents for consult after reports of suicidal comments. 1. Continue current medication. Start Prozac 20 mg p.o. every morning. 2. Patient reporting that there is depression but downplayed chance for help having true suicidal thoughts. 3. We will continue to follow. Attestations NPU Medical Necessity Statement*: N/A. Please see primary team notes for medical necessity. However will continue to evaluate for need for acute psychiatric inpatient care. Coding Level of Care Code Acute Code for g Fwd Diagnoses Depression F32.A Suicidal thoughts R45.851 Adjustment disorder with mixed disturbance of emotions and conduct F43.25
[2022-06-11] MEDS: heparin 5,000 unit/mL INJ 1 mL 5000 UNIT SUBCUT ×2 (10:30→20:16)
[2022-06-11] MEDS: iron polysaccharide complex 150 mg Capsule PO (10:30)
[2022-06-11] MEDS: fluoxetine 20 mg Capsule PO (13:42)
[2022-06-11] MEDS: epoetin alfa 1000 Unit/0.05 mL (ESRD) 20000 UNIT SUBCUT (19:20)
[2022-06-12] VITALS (40 sets, daily range): BP systolic 165–226; BP diastolic 95–129; PULSE 59–82; RESP 11–33; TEMP 36.1–36.6; O2SAT 95–100
[2022-06-12] MEDS: oxyCODONE 5 mg IR Tab/Cap PO ×2 (01:59→14:18)
[2022-06-12] MEDS: cloNIDine 0.1 mg Tablet PO ×2 (02:00→05:48)
[2022-06-12] MEDS: labetalol 5 mg/mL SDV 20mL 10 MG IVP (02:43)
[2022-06-12 04:03] LABS: Basophils # 0.1 10^3/uL (0.0-0.1); Basophils % 1.3 %; Eosinophils # 0.4 10^3/uL (0.0-0.8); Eosinophils % 11.5 %; Hematocrit 21.2 % (42.0-52.0); Hemoglobin 6.6 g/dL (11.7-16.6); Lymphocytes # 0.7 10^3/uL (0.8-4.8); Lymphocytes % 18.5 %; Mean Corpuscular HGB Conc 31.1 g/dL (30.0-36.0); Mean Corpuscular Hemoglobin 29.1 pg (28.0-34.0); Mean Corpuscular Volume 93.4 fl (80-94); Mean Platelet Volume 10.3 fL (7.4-10.4); Monocytes # 0.4 10^3/uL (0.2-0.9); Monocytes % 10.2 %; Neutrophils # 2.24 10^3/uL (1.8-7.7); Neutrophils % 58.2 %; Nucleated Red Blood Cells % 0 %; Platelet Count 181 10^3/cmm (130-400); Red Blood Count 2.27 10^6/uL (4.1-5.3); Red Cell Distribution Width 17.5 % (12.1-15.1); White Blood Count 3.8 10^3/uL (4.0-10.0)
[2022-06-12 04:22] LABS: Anion Gap 11.5 (5-19); Blood Urea Nitrogen 22 mg/dL (6-20); Calcium 9.6 mg/dL (8.5-10.5); Carbon Dioxide 32 mmol/L (22-29); Chloride 98 mmol/L (98-107); Glomerular Filtration Rate 15.9 mL/min (90-130); Glucose 114 mg/dL (65-115); Osmolality Calculated 288 mOsm/kg (285-295); Potassium 4.5 mmol/L (3.5-5.1); Sodium 137 mmol/L (136-145)
--- NOTE | 2022-06-12 05:26 | PC.HD ---
Epoetin 20,000mcg given via HD lines.
[2022-06-12] MEDS: acetaminophen 500 mg Tablet PO ×2 (05:47→17:41)
--- NOTE | 2022-06-12 06:31 | PC.NURSE ---
Order received to give Imdur early.
[2022-06-12] MEDS: isosorbide mononitrate ER 60 mg Tablet 120 MG PO ×3 (06:32→17:41)
--- NOTE | 2022-06-12 07:24 | P.PN_ITS ---
Subjective Subjective: on bipap BP elevated Vitals/I&O/Wt Last Vital Signs Temp 97.9 F 06/12/22 04:12 Pulse 75 06/12/22 05:46 Resp 24 H 06/12/22 05:46 BP 209/111 06/12/22 06:29 Pulse Ox 98 06/12/22 06:29 O2 Del Method 06/12/22 06:29 O2 Flow Rate 3 06/12/22 05:46 FiO2 35 06/12/22 03:16 06/11/22 06/12/22 06/12/22 22:59 06:59 14:59 Intake Total 740 / 1630 360 / 1989 Output Total 4572 / 4572 Balance -3832 / -2942 360 / -2582 Weight last 48 hrs Weight 78.29 kg Weight 78.1 kg Weight 78.063 kg Weight 76.5 kg Physical Exam 2 Narrative: awake , alert , no acute distress, crackles bilaterally per report, S1-S2 regular rate and rhythm per report, has edema. Data 06/12/22 03:31 06/12/22 03:31 A&P Assessment and plan (1) ESRD on dialysis: Plan 1. ESRD, usual HD MWF, UF today 2. Volume overload, chronic CHF 3. H/o liver cirrhosis and ascites 4. History of hypertensive emergencies-multiple admissions in the past, blood pressures in 200s systolic, restarted home meds and plan for HD today- added c oreg and Losartan , will trtarte doses 5. Anemia : s/p procrit 20,000 units yesterday , plan for blood transfusion with hD today Patient evaluated using audiovisual cart, time spent 40 minutes. Attestations Medical Necessity Statement*: Continue ICU management Coding Level of Care Code Acute Code for Chg Fwd Diagnoses ESRD on dialysis N18.6; Z99.2
--- NOTE | 2022-06-12 08:22 | W.PM.NPUPNS ---
Subjective NPU Subjective: Patient presented today reporting that he has not noticed a difference with the medication. We discussed the fact that it generally takes some time before improvement is noted. He continued to report that he has no intention of hurting himself or killing himself and that his statements were made out a pure desperation for how crappy he was feeling. Otherwise he reports hoping that things resolve medically as quickly as possible so that he can leave the ICU and go home ultimately. We discussed making sure he had appropriate follow-up for his mental health challenges. Mental Status Exam MSE Comments: This is a slender white male in hospital gown with limited grooming and eye contact. No abnormal movements except for mild psychomotor retardation. Mostly cooperative with exam in mild distress. Speech was decreased rate and volume. Mood described as a little better, affect congruent. Thought process organized. Thought content: Patient denied suicidal or homicidal ideation but does endorse having said that. There are no delusions reported or noted, he denies any auditory or visual hallucinations. Attention and concentration are limited and memory is mostly reliable but none were formally tested. He is alert and oriented x3. Insight and judgment appear fair impulse control limited. Vitals/I&O/Wt Last Vital Signs Temp 97.9 F 06/12/22 04:12 Pulse 71 06/12/22 05:19 Resp 18 06/12/22 05:19 BP 195/116 06/12/22 05:19 Pulse Ox 96 06/12/22 05:19 O2 Del Method 06/12/22 05:19 O2 Flow Rate 98 06/12/22 02:40 FiO2 35 06/12/22 03:16 06/11/22 06/11/22 06/12/22 14:59 22:59 06:59 Intake Total 890 / 890 240 / 1130 360 / 1490 Balance 890 / 890 240 / 1130 360 / 1490 Weight last 48 hrs Weight 78.063 kg Weight 76.5 kg Weight 79.379 kg Data NPU 06/12/22 03:31 06/12/22 03:31 A&P Assessment and plan (1) Depression: (2) Suicidal thoughts: (3) Adjustment disorder with mixed disturbance of emotions and conduct: Plan This is a 41-year-old white male with a long history of medical comorbidities including kidney failure requiring dialysis who presents for consult after reports of suicidal comments. 1. Continue current medication. Started Prozac 20 mg p.o. every morning. 2. Patient continues to endorse comments being reactionary and not reflective of his true values. 3. We will sign off. Recommend ongoing mental health follow-up and continuing medication. 4. No need for acute/inpatient psychiatric treatment. Attestations NPU Medical Necessity Statement*: N/A. Please see primary team notes for medical necessity. Coding Level of Care Code Acute Code for Chg Fwd Diagnoses Depression F32.A Suicidal thoughts R45.851 Adjustment disorder with mixed disturbance of emotions and conduct F43.25
[2022-06-12] MEDS: docusate sodium 100 mg Capsule PO ×2 (08:33→17:42)
[2022-06-12] MEDS: losartan 50 mg Tablet 100 MG PO (08:33)
[2022-06-12] MEDS: fluoxetine 20 mg Capsule PO (08:33)
[2022-06-12] MEDS: doxycycline 100 mg Tablet PO ×2 (08:33→17:41)
[2022-06-12] MEDS: heparin 5,000 unit/mL INJ 1 mL 5000 UNIT SUBCUT (08:34)
[2022-06-12] MEDS: aspirin 81 mg EC Tablet PO (08:34)
[2022-06-12] MEDS: labetalol 200 mg Tablet PO (08:34)
[2022-06-12] MEDS: clopidogrel 75 mg Tablet PO (08:34)
[2022-06-12] MEDS: cefTRIAXone 2,000 MG in sodium chloride 0.9% (plus) 50 ML 100 MG IV (08:34)
[2022-06-12] MEDS: spironolactone 25 mg Tablet 50 MG PO (08:47)
[2022-06-12] MEDS: pantoprazole DR 40 mg Tablet PO (08:47)
--- NOTE | 2022-06-12 10:25 | PC.HD ---
Hemodialysis treatment initiated without issue. Patient to receive one unit packed red blood cells to be administered during dialysis. Primary RN obtained blood product. Patient wristband number matched blood product documentation. Unit number on blood product documentation matched unit number on product. Vitals checked prior to blood administration.
[2022-06-12] MEDS: sodium chloride 0.9% 100 mL Bag 50 ML IV (10:26)
--- NOTE | 2022-06-12 10:55 | PM.PN ---
Subjective Subjective: Not enough fluid to be drained paracentesis canceled Patient is still hypertensive Added labetalol discontinue Coreg Added spironolactone which she was taking at home Creatinine 4.2 Hemoglobin 6.9, requested PRBC Patient is much more awake and alert as compared to yesterday Not endorsing suicidal ideation anymore Vitals/I&O/Wt Last Vital Signs Temp 97.0 F L 06/12/22 10:13 Pulse 66 06/12/22 10:13 Resp 17 06/12/22 10:13 BP 165/96 06/12/22 10:13 Pulse Ox 99 06/12/22 10:13 O2 Del Method 06/12/22 08:30 O2 Flow Rate 3 06/12/22 05:46 FiO2 35 06/12/22 09:19 06/11/22 06/12/22 06/12/22 22:59 06:59 14:59 Intake Total 740 / 1630 360 / 1990 360 / 360 Output Total 4572 / 4572 Balance -3832 / -2942 360 / -2582 360 / 360 Weight last 48 hrs Weight 78.29 kg Weight 78.1 kg Weight 78.063 kg Weight 76.5 kg Physical Exam Narrative: Patient is eating breakfast Awake and alert Sitting in his bed currently on room room air Diastolic blood pressure 109 Afebrile No abdominal pain today No audible stridor or wheezing Awake and alert GCS 15 AOx3 Data 06/12/22 03:31 06/12/22 03:31 A&P Assessment and plan (1) Epididymitis: (2) COPD (chronic obstructive pulmonary disease): (3) Congestive heart failure: (4) Anemia: (5) Abdominal ascites: (6) ESRD on dialysis: (7) Nicotine dependence, cigarettes, with other nicotine-induced disorders: (8) Inguinal hernia: (9) History of home oxygen therapy: (10) Scrotal edema: (11) Hypertensive emergency: Plan Hypertensive emergency: Blood pressure improved after dialysis and use of labetalol, spironolactone along home regimen of antihypertensive regimen End-stage renal disease dialysis session today Anemia of chronic disease Patient has been given erythropoietin, will receive PRBC Abdominal tenderness has improved Not enough ascitic fluid to be drained as per the IR Epididymitis, he has received yesterday dose of ceftriaxone and doxycycline, I have kept him on ceftriaxone as SBP prophylactic measure COPD without exacerbation at home requires 2 to 3 L Suicidal ideation: Not endorsing any more Dr. Perales has evaluated him yesterday, awaiting his consultation note Patient is not a 96-hour hold If blood pressure remains stable by tomorrow I will discharge him if Dr. Perales does not want him to take him to neuropsych Attestations Medical Necessity Statement*: Continue ICU management Coding Level of Care Code 79697 Diagnoses Epididymitis N45.1 COPD (chronic obstructive pulmonary disease) J44.9 Congestive heart failure I50.9 Anemia D64.9 Abdominal ascites R18.8 ESRD on dialysis N18.6; Z99.2 Nicotine dependence, cigarettes, with other nicotine-induced disorders F17.218 Inguinal hernia K40.90 History of home oxygen therapy Z99.81 Scrotal edema N50.89 Hypertensive emergency I16.1
--- NOTE | 2022-06-12 12:27 | PC.NURSE ---
2.5 liters removed during dialysis. One unit of blood given.
[2022-06-12] MEDS: ALPRAZolam 0.5 mg Tablet PO (14:17)
[2022-06-12] MEDS: hyDRALAzine 50 mg Tablet 100 MG PO (14:17)
[2022-06-12] MEDS: cyclobenzaprine 10 mg Tablet PO (17:41)
[2022-06-12] MEDS: labetalol 200 mg Tablet 300 MG PO (17:47)
--- NOTE | 2022-06-12 19:22 | PM.DCS ---
Discharge Providers Date of Admission: 06/10/22 15:23 Date of Discharge: June 12, 2022 Attending Provider at Admission: Anya Vargas MD Attending Provider at Discharge: Emanuel Nation MD Primary Care Provider: Mal Peres DO Diagnoses at Discharge Discharge Diagnosis (1) Epididymitis: Status: Inactive (2) COPD (chronic obstructive pulmonary disease): Status: Inactive (3) Congestive heart failure: Status: Inactive Permanent problem details: preserved ejection fraction (4) Anemia: Status: Inactive Permanent problem details: chronic kidney disease (5) Abdominal ascites: Status: Inactive Permanent problem details: history of intermittent paracentesis, transudative fluid; prior work up has included negative biopsy, ceruloplasmin level normal, low iron, high ferritin, normal TIBC, negative HIV, hepatitis panel negative, JESÚS/SCL 70/double-stranded DNA antibodies negative, Alpha-fetoprotein level unremarkable, nonalcoholic by history (6) ESRD on dialysis: Status: Inactive (7) Nicotine dependence, cigarettes, with other nicotine-induced disorders: Status: Inactive (8) Inguinal hernia: Status: Inactive (9) History of home oxygen therapy: Status: Inactive (10) Scrotal edema: Status: Inactive (11) Hypertensive emergency: Status: Inactive Reason for Visit Reason for Visit: INCOHERENT Hospital Course Hospital Course 41-year male who presented to the hospital with confusion and drowsiness from dialysis center, he was diagnosed with hypertensive emergency required ICU nitroglycerin drip and labetalol gtt. to control his blood pressure every time we turned off antihypertensive gtt. his diastolic remained above 110 multiple antibiotic regimens have been added, Coreg discontinued, labetalol added 200 mg twice a day which seemed to make some improvement in his blood pressure, I have added clonidine as well along spironolactone, hydralazine, patient has allergies to nifedipine, amlodipine was not used at all. He takes lisinopril, minoxidil as well at home. He required 1 unit PRBC and erythropoietin for anemia of chronic disease during this hospitalization, nephrology was consulted. Patient is threatening to leave [place], Dr. Perales neuropsychiatrist has cleared him, neuropsychiatrist was consulted for his suicidal ideation. Patient is stating that he made those statements out of frustration he does not have any plans at all, ICU nursing staff did double check with Dr. Perales before patient left AMA, he is not on 96-hour hold Discharge Data Studies Completed and Pending Completed Studies During Hospitalization Category Date Time Status US abdomen lmt fluid 11133 Routine Ultrasound 06/11/22 08:53 Completed US testicular [US scrotum [id number]] Stat Ultrasound 06/09/22 15:43 Completed Pending at discharge Category Date Time Status Basic Metabolic Panel AM LABS Lab 06/13/22 04:00 Ordered Chlamydia / Gonorrhea Panel Routine Lab 06/10/22 11:35 Uncollected Complete Blood Count w/Auto AM LABS Lab 06/13/22 04:00 Ordered Radiology Impressions Scrotum Ultrasound 06/09/22 15:43 IMPRESSION: 1. No testicular mass or torsion. 2. Bilateral acute epididymitis. Markedly enlarged epididymis with heterogeneity. 3. Diffuse scrotal wall thickening. Abdomen Ultrasound 06/11/22 08:53 IMPRESSION: Insufficient ascites for paracentesis. Laboratory Results WBC 3.8 10^3/uL (4.0-10.0) L 06/12/22 03:31 RBC 2.27 10^6/uL (4.1-5.3) L 06/12/22 03:31 Hgb 6.6 g/dL (11.7-16.6) L 06/12/22 03:31 Hct 21.2 % (42.0-52.0) L 06/12/22 03:31 MCV 93.4 fl (80-94) 06/12/22 03:31 MCH 29.1 pg (28.0-34.0) 06/12/22 03:31 MCHC 31.1 g/dL (30.0-36.0) 06/12/22 03:31 RDW 17.5 % (12.1-15.1) H 06/12/22 03:31 Plt Count 181 10^3/cmm (130-400) 06/12/22 03:31 MPV 10.3 fL (7.4-10.4) 06/12/22 03:31 Neut % (Auto) 58.2 % 06/12/22 03:31 Lymph % (Auto) 18.5 % 06/12/22 03:31 [place] % (Auto) 10.2 % 06/12/22 03:31 Eos % (Auto) 11.5 % 06/12/22 03:31 Baso % (Auto) 1.3 % 06/12/22 03:31 Neut # (Auto) 2.24 10^3/uL (1.8-7.7) 06/12/22 03:31 Lymph # (Auto) 0.7 10^3/uL (0.8-4.8) L 06/12/22 03:31 [place] # (Auto) 0.4 10^3/uL (0.2-0.9) 06/12/22 03:31 Eos # (Auto) 0.4 10^3/uL (0.0-0.8) 06/12/22 03:31 Baso # (Auto) 0.1 10^3/uL (0.0-0.1) 06/12/22 03:31 Nucleated RBC % (auto) 0 % 06/12/22 03:31 Nucleated RBCs # 0.0 /100WBC 06/12/22 03:31 PT 14.40 SECONDS (12.1-14.9) 06/09/22 13:07 INR 1.09 (0.8-1.2) 06/09/22 13:07 Sodium 137 mmol/L (136-145) 06/12/22 03:31 Potassium 4.5 mmol/L (3.5-5.1) 06/12/22 03:31 Chloride 98 mmol/L (98-107) 06/12/22 03:31 Carbon Dioxide 32 mmol/L (22-29) H 06/12/22 03:31 Anion Gap 11.5 (5-19) 06/12/22 03:31 BUN 22 mg/dL (6-20) H 06/12/22 03:31 Creatinine 4.2 mg/dL (0.7-1.2) H 06/12/22 03:31 GFR Calculation 15.9 mL/min (90-130) L 06/12/22 03:31 Glucose 114 mg/dL (65-115) 06/12/22 03:31 Calculated Osmolality 288 mOsm/kg (285-295) 06/12/22 03:31 Calcium 9.6 mg/dL (8.5-10.5) 06/12/22 03:31 Phosphorus 5.0 mg/dL (2.5-4.5) H 06/11/22 02:57 Magnesium 1.9 mg/dL (1.7-2.3) 06/11/22 02:57 Total Bilirubin 0.5 mg/dL (0.15-1.2) 06/10/22 04:17 AST 9 U/L (0-40) 06/10/22 04:17 ALT 6 U/L (0-41) 06/10/22 04:17 Alkaline Phosphatase 89 U/L (40-130) 06/10/22 04:17 Total Protein 6.1 g/dL (6.6-8.7) L 06/10/22 04:17 Albumin 3.4 g/dL (3.5-5.2) L 06/10/22 04:17 Globulin 2.7 g/dL (1.3-4.6) 06/10/22 04:17 Blood Type O Positive 06/12/22 08:08 Rho(D) Type Positive 06/12/22 08:08 Antibody Screen Negative 06/12/22 08:08 Crossmatch See Detail 06/12/22 08:08 Vitals Last Vital Signs Temp 97.5 F L 06/12/22 12:13 Pulse 68 06/12/22 17:00 Resp 33 H 06/12/22 17:00 BP 190/117 06/12/22 17:00 Pulse Ox 98 06/12/22 17:00 O2 Del Method 06/12/22 17:00 O2 Flow Rate 3 06/12/22 17:00 FiO2 35 06/12/22 11:51 Discharge Plan Discharge Patient Disposition: Left Against Medical Advice Condition: Stable Prescriptions: No Action isosorbide mononitrate 120 mg tablet extended release 24 hr 120 mg PO DAILY Qty: 90 2RF hydralazine 100 mg tablet 100 mg PO TID Qty: 270 3RF Incruse Ellipta 62.5 mcg/actuation blister with device 1 inh INHALATION DAILY Qty: 30 2RF clonazepam 0.5 mg tablet 0.5 mg PO BEDTIME Qty: 30 0RF quetiapine 25 mg tablet 25 mg PO DAILY Qty: 90 0RF cyclobenzaprine 10 mg tablet 10 mg PO Q12H PRN (Reason: muscle spasm) Qty: 30 2RF nitroglycerin 0.4 mg tablet, sublingual 0.4 mg SUBLINGUAL Q5M PRN (Reason: Chest Pain) Qty: 30 5RF Rx Instructions: do not exceed 3 doses per episode clopidogrel 75 mg tablet 75 mg PO DAILY Qty: 90 3RF (DME) DME - BIPAP See Rx Instructions .Route .MEDSUPPLY Qty: 1 0RF Rx Instructions: Inspiratory Pressure: 16mmHg Expiratory Pressure: 8 mmHg Will need oxygen bled in to the machine to maintain sats >/= 90%. (DME) DME - Oxygen See Rx Instructions .Route .MEDSUPPLY Qty: 1 0RF Rx Instructions: Supplemental Oxygen bled into BIPAP at 2-3L to maintain oxygen sats at >/= 90%. lisinopril 40 mg Tablet 40 mg PO DAILY lactulose 20 gram/30 mL Solution 10 g PO TID PRN (Reason: Constipation) Auryxia 210 mg iron Tablet 420 mg PO TID Rx Instructions: administer with a meal minoxidil 2.5 mg Tablet 2.5 mg PO BID aspirin 81 mg tablet,delayed release (DR/EC) 81 mg PO DAILY amlodipine 10 mg tablet 10 mg PO BEDTIME pantoprazole 40 mg tablet,delayed release (DR/EC) 40 mg PO DAILY albuterol sulfate 90 mcg/actuation HFA aerosol inhaler 2 puff inhalation Q6H PRN (Reason: Shortness Of Breath Or Wheezing) clonidine HCl 0.2 mg tablet 0.2 mg PO TID RenaPlex-D 800 mcg-12.5 mg -2,000 unit tablet 1 tab PO QPM carvedilol 25 mg tablet 50 mg PO BID doxycycline hyclate 100 mg capsule 100 mg PO BID polyethylene glycol 3350 [Miralax] 17 gram Powder In Packet 17 g PO DAILY warfarin 1 mg tablet See Rx Instructions .ROUTE .COMPLEX Rx Instructions: 3mg once daily Referrals: Mla Peres DO [Primary Care Provider] - Patient Instructions: Opioid Safety Discharge Attestations Time Spent in Discharge Care*: less than 30 min Status at Discharge: Cognitive status at discharge: cognitively intact, Behavioral status at discharge: cooperative, Quality Metrics Clinical Quality Measures [ No reported AMI, CVA or VTE this stay] Coding Level of Care Code Acute Code for Chg Fwd Diagnoses Epididymitis N45.1 COPD (chronic obstructive pulmonary disease) J44.9 Congestive heart failure I50.9 Anemia D64.9 Abdominal ascites R18.8 ESRD on dialysis N18.6; Z99.2 Nicotine dependence, cigarettes, with other nicotine-induced disorders F17.218 Inguinal hernia K40.90 History of home oxygen therapy Z99.81 Scrotal edema N50.89 Hypertensive emergency I16.1
--- NOTE | 2022-06-12 19:38 | PC.NURSE ---
190 upon entering room during shift change, patient refusing further care and states he is leaving the hospital ; patient's mother at bedside 1914 Dr. Villegas contacted; discharge orders dependent on patient's blood pressure which remains high at this time (179/110); awaiting instructions [address] Villegas that patient will not be discharged by hospitalist team and patient may sign AMA papers 1931 patient educated on importance of staying in hospital to have high blood pressures treated, however patient still wants to leave; AMA papers signed 1932 right hand IV discontinued 1934 patient out of room with mother to ride home in personal vehicle
== END 2022-06-12 19:35 | disposition left against medical advice (07) | DRG 291 ==
LOC: ER 14:41 → ICU 18:31
PROVIDERS: Student in an Organized Health Care Education/Training Program; Admitting Provider Hospitalist; Emergency Provider Family Medicine; PCP Family Medicine; Visit Provider Internal Medicine
DX: I13.2 Hypertensive heart and chronic kidney disease with heart failure and with stage 5 chronic kidney disease, or end stage renal disease (principal); N18.6 End stage renal disease; I16.1 Hypertensive emergency; R45.851 Suicidal ideations; R18.8 Other ascites; I50.32 Chronic diastolic (congestive) heart failure; Z99.2 Dependence on renal dialysis; N45.1 Epididymitis; Z79.02 Long term (current) use of antithrombotics/antiplatelets; Z53.29 Procedure and treatment not carried out because of patient's decision for other reasons; Z99.89 Dependence on other enabling machines and devices; Z99.81 Dependence on supplemental oxygen; Z79.82 Long term (current) use of aspirin; Z79.01 Long term (current) use of anticoagulants; D63.1 Anemia in chronic kidney disease; M54.50 Low back pain, unspecified; I25.10 Atherosclerotic heart disease of native coronary artery without angina pectoris; Z95.5 Presence of coronary angioplasty implant and graft; Z86.711 Personal history of pulmonary embolism; Z86.16 Personal history of COVID-19; F41.1 Generalized anxiety disorder; F32.A Depression, unspecified; K40.90 Unilateral inguinal hernia, without obstruction or gangrene, not specified as recurrent; F17.210 Nicotine dependence, cigarettes, uncomplicated; J44.9 Chronic obstructive pulmonary disease, unspecified
CPT/HCPCS: 12345; 36415; 36430; 71045; 74176; 76705; 76870; 80048; 80053; 83605; 83735; 84100; 85025; 85610; 86850; 86900; 86920; 93005; 94660; 96365; 96372; 96374; 96375; 96376; 99285; G0378; J0360; J0696; J1644; J2060; J2270; J2405; J3010; J3490; J7050; P9016; Q3014; Q4081

== ENCOUNTER 2022-06-26 10:42 | Day surgery (SDC) | payer MEDICARE, MEDICAID, SELFPAY ==
[2022-06-25 08:55] VITALS: BMI 21.7
[2022-06-26 10:51] VITALS: BP 164/85; PULSE 73; RESP 20; TEMP 36.1; O2SAT 96
== END 2022-06-26 11:25 | disposition home or self-care (01) ==
LOC: GILAB 10:43
PROVIDERS: PCP Family Medicine; Visit Provider Registered Nurse
PROC: (CPT 49082; principal; 2022-06-26 12:00)
DX: R18.8 Other ascites (principal)

== ENCOUNTER 2022-07-01 14:33 | Emergency (ER) | payer MEDICARE, MEDICAID, SELFPAY ==
[2022-07-01] VITALS (40 sets, daily range): BP systolic 193–215; BP diastolic 109–133; PULSE 66; RESP 18; TEMP 36.7; O2SAT 89–98; BMI 21.6
--- NOTE | 2022-07-01 15:02 | XRR_ITS ---
PROCEDURE INFORMATION: Exam: XR Chest Exam date and time: 07/01/2022 5:00 PM Age: 41 years old Clinical indication: Shortness of breath; Additional info: Shortness of breath, only 1 view submitted TECHNIQUE: Imaging protocol: Radiologic exam of the chest. Views: 1 view. COMPARISON: CR XR chest 1V portable [id number] 06/09/2022 6:13 AM FINDINGS: Lungs: There is no pulmonary there is mild peribronchial cuffing and mild interstitial edema suggesting congestive failure. There is small calcified granuloma in the right mid lung. No focal consolidation is identified. Pleural spaces: There are small bilateral pleural effusions. Heart/Mediastinum: The heart is mildly enlarged. Bones/joints: Old healed fracture posterior right 7th rib. XR/XR chest 1V portable [id number] IMPRESSION: Mild congestive failure.
[2022-07-01 15:41] LABS: Basophils # 0.1 10^3/uL (0.0-0.1); Basophils % 0.9 %; Eosinophils # 0.4 10^3/uL (0.0-0.8); Eosinophils % 6.9 %; Hematocrit 29.4 % (42.0-52.0); Hemoglobin 9.2 g/dL (11.7-16.6); Lymphocytes # 0.7 10^3/uL (0.8-4.8); Lymphocytes % 12.6 %; Mean Corpuscular HGB Conc 31.3 g/dL (30.0-36.0); Mean Corpuscular Hemoglobin 28.6 pg (28.0-34.0); Mean Corpuscular Volume 91.3 fl (80-94); Monocytes # 0.4 10^3/uL (0.2-0.9); Monocytes % 7.6 %; Neutrophils # 3.88 10^3/uL (1.8-7.7); Neutrophils % 71.8 %; Nucleated Red Blood Cells % 0 %; Platelet Count 239 10^3/cmm (130-400); Red Blood Count 3.22 10^6/uL (4.1-5.3); White Blood Count 5.4 10^3/uL (4.0-10.0)
[2022-07-01 15:58] LABS: Troponin(5th) Baseline 91 ng/L (0-15)
[2022-07-01 15:59] LABS: Lactic Sepsis W/Reflex 0.7 mmol/L (0.5-2.2)
[2022-07-01 16:00] LABS: Alanine Aminotransferase 6 U/L (0-41); Albumin Level 3.8 g/dL (3.5-5.2); Alkaline Phosphatase 99 U/L (40-130); Anion Gap 17.8 (5-19); Aspartate Amino Transferase 12 U/L (0-40); Blood Urea Nitrogen 18 mg/dL (6-20); Calcium 9.7 mg/dL (8.5-10.5); Carbon Dioxide 32 mmol/L (22-29); Chloride 91 mmol/L (98-107); Globulin 2.6 g/dL (1.3-4.6); Glomerular Filtration Rate 9.8 mL/min (90-130); Glucose 82 mg/dL (65-115); Osmolality Calculated 283 mOsm/kg (285-295); Potassium 4.8 mmol/L (3.5-5.1); Sodium 136 mmol/L (136-145); Total Bilirubin 0.9 mg/dL (0.15-1.2); Total Protein 6.4 g/dL (6.6-8.7)
--- NOTE | 2022-07-01 16:05 | ECG_ITS ---
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 Measurements Intervals Tram Rate: 70 P: 55 MA: 207 QRS: 71 QRSD: 118 T: 71 QT: 444 QTc: 482 Interpretive Statements SINUS RHYTHM POSSIBLE LEFT ATRIAL ENLARGEMENT [-0.1mV P-WAVE IN V1/V2] MODERATE INTRAVENTRICULAR CONDUCTION DELAY [110+ ms QRS DURATION] PROLONGED QT INTERVAL Compared to ECG 06/09/2022 21:06:35 Intraventricular conduction delay now present Prolonged QT interval now present Electronically Signed On 07-02-2022 14:12:49 STEEL LOADER by Ruba Hussein M.D. [id number]
[2022-07-01] MEDS: hyDRALAzine 20 mg/mL INJ 1 mL 10 MG IVP ×2 (16:47→17:28)
--- NOTE | 2022-07-01 17:15 | ECG_ITS ---
[facility] Test Date: 2022-07-01 Pat Name: Mal Gibbs Department: Room: Gender: Male Internal Control Analyst: PIERCE: 1980 Requested By: Saskia Tolbert Order Number: [id number] Rajan MD: Ruba Hussein M.D. Measurements Intervals [place] Rate: 67 P: 70 KS: 218 QRS: 79 QRSD: 114 T: 90 QT: 436 QTc: 463 Interpretive Statements SINUS RHYTHM WITH FIRST DEGREE AV BLOCK POSSIBLE LEFT ATRIAL ENLARGEMENT [-0.1mV P-WAVE IN V1/V2] MODERATE INTRAVENTRICULAR CONDUCTION DELAY [110+ ms QRS DURATION] Compared to ECG 07/01/2022 16:05:29 First degree AV block now present Prolonged QT interval no longer present Electronically Signed On 07-02-2022 16:18:48 FLOUR BROKER by Ruba Hussein M.D. [id number]
[2022-07-01 17:52] LABS: Troponin 5 2HR 78.52 ng/L (0-15)
[2022-07-01 17:54] LABS: Troponin 5 2HR Delta -12.48 ABS# (0-10)
[2022-07-01 18:06] LABS: Alcohol Level < 10 mg/dL (0-10)
--- NOTE | 2022-07-01 18:11 | ED_ITS ---
HPI - SOB/Dyspnea General: Chief Complaint: Shortness of Breath/Dyspnea Stated Complaint: sob Time Seen by Provider: 07/01/22 15:42 History of Present Illness: HPI Narrative: 41-year-old male in with a variety of different complaints including shortness of breath and diffuse pain. The patient initially came in and had some somnolence and slept for quite a while was unable to wake up to answer my questions but then later when I went back in he was awake and alert asking for pain medication. Patient did not appear to be in any respiratory distress or have increased work of breathing. He had dialysis yesterday he tells me. At the time I was back in the room his oxygen saturations were in the mid 90s. Review of Systems General: Reports: 10 or more systems reviewed and unremarkable except in HPI and below PFSH ED PFSH: Medical History Abdominal ascites history of intermittent paracentesis, transudative fluid; prior work up has included negative biopsy, ceruloplasmin level normal, low iron, high ferritin , normal TIBC, negative HIV, hepatitis panel negative, JESÚS/SCL 70/double- stranded DNA antibodies negative, Alpha-fetoprotein level unremarkable, nonalcoholic by history Altered mental status Anemia chronic kidney disease Anxiety Anxiety with depression Arteriovenous fistula for hemodialysis in place, secondary Atherosclerosis of coronary artery Stent and balloon angioplasty to proximal 1 OM branch Chronic abdominal pain Chronic respiratory failure on home oxygen and bipap Congestive heart failure preserved ejection fraction COPD (chronic obstructive pulmonary disease) COVID 05/25 Degenerative disc disease, lumbar Epididymitis ESRD on dialysis ESRD on dialysis Generalized anxiety disorder with panic attacks History of coronary angiogram 11/2021 - patent stent History of home oxygen therapy Hypertension uncontrolled Hypertension Hypertensive emergency recurrent episodes Hypertensive emergency Inguinal hernia Low back pain Nicotine dependence, cigarettes, with other nicotine-induced disorders Pulmonary embolism 09/21 CTA inconclusive for very tiny peripheral LEFT lower lobe pulmonary artery sub segmental emboli versus poor opacification. Pulmonary hypertension Scrotal edema Umbilical hernia Urethral stricture Uses bilevel positive airway pressure (BPAP) ventilation at home Surgical History H/O hand surgery Amputation right 2&3 fingers 2017 History of adenoidectomy Stented coronary artery Family History Father No problems noted. Other Hypertension Social History Smoking and tobacco status: current every day smoker cigarettes Packs smoked per day: 1.5 Years cigarettes smoked: 21 [ Other cigarette details: started age 20, currently 0.5ppd ] Alcohol intake: never Marital status: Number of children: 3 Current occupational status: disabled Physical Exam HENMT: COMMON NORMALS: normocephalic HEAD & SCALP: normocephalic Eye: COMMON NORMALS: Equal, round and reactive pupils present, EOMs intact bilaterally and conjunctivae normal CONJUNCTIVA: Yes conjunctivae normal PUPIL: Yes Equal, round and reactive pupils present Neck/C-Spine: COMMON NORMALS: full ROM, no lymphadenopathy, supple, no meningeal signs, no JVD and Thyroid normal THYROID: Thyroid normal Chest: COMMONS NORMALS: normal inspection of the chest and normal palpation of entire chest wall Resp: COMMON NORMALS: normal respiratory effort, No retractions, No use of accessory muscles, clear to auscultation bilaterally and percussion normal AUSCULTATION: clear to auscultation bilaterally PERCUSSION: percussion normal Cardio: COMMON NORMALS: no JVD GI: COMMON NORMALS: Normal to inspection, nondistended, normoactive bowel sounds present, Soft to palpation, non-tender, No hepatosplenomegaly present, no masses and no bruits PALPATION: Yes Soft to palpation and Yes No hepatosplenomegaly present : COMMON NORMALS: Yes no CVA tenderness BLADDER/KIDNEY EXAM: Yes no CVA tenderness Back/Pelvis: COMMON NORMALS: no CVA tenderness Extremity: COMMON NORMALS: normal to inspection, full ROM, capillary refill normal, no joint enlargement, no clubbing, cyanosis or edema, no calf tenderness and no pedal edema Neuro: MENINGEAL SIGNS: Yes no meningeal signs Skin: COMMON NORMALS: no rashes or lesions noted, turgor normal and no jaundice GENERAL SKIN EXAM: no rashes or lesions noted and turgor normal Course Vital Signs: Vital signs: Vital Signs Temperature 98.1 F 07/01/22 14:53 Pulse Rate 66 07/01/22 14:53 Respiratory Rate 18 07/01/22 14:53 Blood Pressure 194/110 07/01/22 18:35 Pulse Oximetry 96 07/01/22 18:35 Oxygen Delivery Me thod 07/01/22 14:53 MDM - SOB/Dyspnea Medical Decision Making 41-year-old male in with concerns of shortness of breath. The patient's oxygen saturations seem fairly normal. Unfortunately he did not want to stay for further work-up after he was told he would not be getting any pain medication. I did review his labs which were nondiagnostic and most of which were improved from prior. There is no obvious metabolic cause to his complaints and he did not stay long enough to get a chest x-ray or further work-up. The patient did have an EKG that revealed a sinus rhythm and mild prolongation of the QT intervals as well as the QRS. The patient left prior to complete evaluation of encouraged him to follow-up with his primary care physician or return at any time. Lab Data 07/01/22 15:20 07/01/22 15:20 Labs/Radiology: Radiology Impressions Chest X-Ray 07/01/22 15:02 IMPRESSION: Mild congestive failure. Laboratory Results WBC 5.4 10^3/uL (4.0-10.0) 07/01/22 15:20 RBC 3.22 10^6/uL (4.1-5.3) L 07/01/22 15:20 Hgb 9.2 g/dL (11.7-16.6) L 07/01/22 15:20 Hct 29.4 % (42.0-52.0) L 07/01/22 15:20 MCV 91.3 fl (80-94) 07/01/22 15:20 MCH 28.6 pg (28.0-34.0) 07/01/22 15:20 MCHC 31.3 g/dL (30.0-36.0) 07/01/22 15:20 RDW 17.0 % (12.1-15.1) H 07/01/22 15:20 Plt Count 239 10^3/cmm (130-400) 07/01/22 15:20 MPV 10.0 fL (7.4-10.4) 07/01/22 15:20 Neut % (Auto) 71.8 % 07/01/22 15:20 Lymph % (Auto) 12.6 % 07/01/22 15:20 [place] % (Auto) 7.6 % 07/01/22 15:20 Eos % (Auto) 6.9 % 07/01/22 15:20 Baso % (Auto) 0.9 % 07/01/22 15:20 Neut # (Auto) 3.88 10^3/uL (1.8-7.7) 07/01/22 15:20 Lymph # (Auto) 0.7 10^3/uL (0.8-4.8) L 07/01/22 15:20 [place] # (Auto) 0.4 10^3/uL (0.2-0.9) 07/01/22 15:20 Eos # (Auto) 0.4 10^3/uL (0.0-0.8) 07/01/22 15:20 Baso # (Auto) 0.1 10^3/uL (0.0-0.1) 07/01/22 15:20 Nucleated RBC % (auto) 0 % 07/01/22 15:20 Nucleated RBCs # 0.0 /100WBC 07/01/22 15:20 Sodium 136 mmol/L (136-145) 07/01/22 15:20 Potassium 4.8 mmol/L (3.5-5.1) 07/01/22 15:20 Chloride 91 mmol/L (98-107) L 07/01/22 15:20 Carbon Dioxide 32 mmol/L (22-29) H 07/01/22 15:20 Anion Gap 17.8 (5-19) 07/01/22 15:20 BUN 18 mg/dL (6-20) 07/01/22 15:20 Creatinine 6.4 mg/dL (0.7-1.2) H* 07/01/22 15:20 GFR Calculation 9.8 mL/min (90-130) L 07/01/22 15:20 Glucose 82 mg/dL (65-115) 07/01/22 15:20 Calculated Osmolality 283 mOsm/kg (285-295) L 07/01/22 15:20 Lactic Acid 0.7 mmol/L (0.5-2.2) 07/01/22 15:20 Calcium 9.7 mg/dL (8.5-10.5) 07/01/22 15:20 Total Bilirubin 0.9 mg/dL (0.15-1.2) 07/01/22 15:20 AST 12 U/L (0-40) 07/01/22 15:20 ALT 6 U/L (0-41) 07/01/22 15:20 Alkaline Phosphatase 99 U/L (40-130) 07/01/22 15:20 Troponin T Baseline 91 ng/L (0-15) H 07/01/22 15:20 Troponin T 120 Minute 78.52 ng/L (0-15) H 07/01/22 17:21 Delta Troponin T -12.48 ABS# (0-10) L 07/01/22 17:21 Total Protein 6.4 g/dL (6.6-8.7) L 07/01/22 15:20 Albumin 3.8 g/dL (3.5-5.2) 07/01/22 15:20 Globulin 2.6 g/dL (1.3-4.6) 07/01/22 15:20 Ethyl Alcohol < 10 mg/dL (0-10) 07/01/22 17:21 Discharge Plan Discharge Patient Disposition: Home Clinical Impression: End-stage renal disease (ESRD) Chronic pain Qualifiers: Chronic pain type: chronic pain syndrome Qualified Code(s): G89.4 - Chronic pain syndrome Condition: Stable Prescriptions: No Action isosorbide mononitrate 120 mg tablet extended release 24 hr 120 mg PO DAILY Qty: 90 2RF hydralazine 100 mg tablet 100 mg PO TID Qty: 270 3RF Incruse Ellipta 62.5 mcg/actuation blister with device 1 inh INHALATION DAILY Qty: 30 2RF clonazepam 0.5 mg tablet 0.5 mg PO BEDTIME Qty: 30 0RF quetiapine 25 mg tablet 25 mg PO DAILY Qty: 90 0RF cyclobenzaprine 10 mg tablet 10 mg PO Q12H PRN (Reason: muscle spasm) Qty: 30 2RF nitroglycerin 0.4 mg tablet, sublingual 0.4 mg SUBLINGUAL Q5M PRN (Reason: Chest Pain) Qty: 30 5RF Rx Instructions: do not exceed 3 doses per episode clopidogrel 75 mg tablet 75 mg PO DAILY Qty: 90 3RF (DME) DME - BIPAP See Rx Instructions .Route .MEDSUPPLY Qty: 1 0RF Rx Instructions: Inspiratory Pressure: 16mmHg Expiratory Pressure: 8 mmHg Will need oxygen bled in to the machine to maintain sats >/= 90%. (DME) DME - Oxygen See Rx Instructions .Route .MEDSUPPLY Qty: 1 0RF Rx Instructions: Supplemental Oxygen bled into BIPAP at 2-3L to maintain oxygen sats at >/= 90%. lisinopril 40 mg Tablet 40 mg PO DAILY Auryxia 210 mg iron Tablet 420 mg PO TID Rx Instructions: administer with a meal minoxidil 2.5 mg Tablet 2.5 mg PO BID aspirin 81 mg tablet,delayed release (DR/EC) 81 mg PO DAILY amlodipine 10 mg tablet 10 mg PO BEDTIME pantoprazole 40 mg tablet,delayed release (DR/EC) 40 mg PO DAILY albuterol sulfate 90 mcg/actuation HFA aerosol inhaler 2 puff inhalation Q6H PRN (Reason: Shortness Of Breath Or Wheezing) clonidine HCl 0.2 mg tablet 0.2 mg PO TID carvedilol 25 mg tablet 50 mg PO BID polyethylene glycol 3350 [Miralax] 17 gram Powder In Packet 17 g PO DAILY warfarin 1 mg tablet See Rx Instructions .ROUTE .COMPLEX Rx Instructions: 3mg once daily labetalol 200 mg tablet 200 mg PO Q8H hydrocodone-acetaminophen 5-325 mg tablet 1 tab PO Q6H PRN (Reason: Pain) spironolactone 100 mg tablet 100 mg PO DAILY Discharge Orders: Discharge ED (Routine); Ordered 07/01/22 Ordered By: Jose Beckham Referrals: Mal Peres DO [Primary Care Provider] - Discharge Diet: As Directed Discharge Activity: Resume usual activity Patient Instructions: Opioid Safety, Pain Management Activity Restrictions/Additional Instructions: 1. Tylenol as directed for pain. Follow up with PCP for recheck in 1-3 days. Coding Level of Care Code ED Jigger Crown Pouncing Machine Operator for Cristi Diane
--- NOTE | 2022-07-01 18:48 | PC.NURSE ---
Upon informing pt of discharge orders, pt refused discharge. Pt stated, Do I look like I'm ready to go home? When you see my obituary, just know you are the one's who killed me. I don't even have a ride home. This nurse informed pt that we would set up a ride and that the doctor felt his labs were fine and saw no need to keep him in the hospital overnight. This nurse notified the doctor, Chapincito, of the pt concerns and statement. Chapincito still wants to proceed with discharge.
== END 2022-07-01 19:00 | disposition home or self-care (01) ==
PROVIDERS: Nurse Practitioner Family; Emergency Provider Family Medicine; PCP Family Medicine
DX: I12.0 Hypertensive chronic kidney disease with stage 5 chronic kidney disease or end stage renal disease (principal); N18.6 End stage renal disease; Z99.2 Dependence on renal dialysis
CPT/HCPCS: 36415; 71045; 80053; 80307; 83605; 84484; 85025; 87040; 93005; 96374; 96376; 99285; J0360

== ENCOUNTER 2022-07-23 04:11 | Emergency (ER) | payer MEDICARE, MEDICAID, SELFPAY ==
[2022-07-23] VITALS (7 sets, daily range): BP systolic 188–214; BP diastolic 113–141; PULSE 84–103; RESP 16–26; O2SAT 88–95; BMI 18.4
--- NOTE | 2022-07-23 04:18 | XRR_ITS ---
PROCEDURE INFORMATION: Exam: XR Chest Exam date and time: 07/23/2022 4:39 AM Age: 41 years old Clinical indication: Tachypnea; Prior surgery; Surgery type: Coronary stent; Patient HX: C/O SOB. Hypertensive on monitor. TECHNIQUE: Imaging protocol: Radiologic exam of the chest. Views: 1 view. COMPARISON: 1. CT angio chest PE protcl [id number] 03/14/2022 5:29 PM 2. CR XR chest 2V* [id number] 07/01/2022 5:00 PM FINDINGS: Lungs: There is ground-glass opacity throughout both lungs. There is a 5 mm calcified granuloma projecting over the lateral right mid lung (visible on chest CT 03/14/2022). Pleural spaces: The left lateral costophrenic sulcus is blunted. No pneumothorax. Heart/Mediastinum: There is mild enlargement of the cardiac silhouette. Bones/joints: Healed right posterolateral 7th rib fracture. No acute fracture. XR/XR chest 1V portable [id number] IMPRESSION: 1. No change since 07/01/2022. 2. Chronic or recurrent diffuse bilateral pulmonary ground-glass opacity. Probable pulmonary edema.
--- NOTE | 2022-07-23 04:19 | W.ED.ABDPA2 ---
HPI - Abdominal Pain General: Chief Complaint: Abdominal Pain Stated Complaint: ABD Pain\SOB Time Seen by Provider: 07/23/22 04:13 Source: patient Mode of arrival: ambulatory Limitations: no limitations History of Present Illness: 41-year-old male is very well-known to the ER has a history of chronic hypertension chronic abdominal pain along with end-stage renal disease. He states he is having abdominal pain tonight he has had chronic abdominal pain from ascites on his way here he had ran out of his oxygen and he is hypoxic here he is on 3 L at baseline he states he is short of breath now as he ran out oxygen did not have any dyspnea before denies any chest pain or fever. Associated Symptoms: Denies chills, dysuria and fever(s) Review of Systems Const: Denies: fever(s), chills, body aches or change in appetite Eyes: Denies: blurry vision or eye discomfort ENMT: Denies: throat pain or dental pain Card: Denies: chest pain Resp: Reports: dyspnea GI: Reports: abdominal pain : Denies: dysuria Musc: Denies: neck pain or back pain Skin/Breast: Denies: rash Neuro: Denies: headache(s) Psych: Denies: depression [place]/Lymph: Denies: easy bruising All/Imm: Denies: urticaria PFSH ED PFSH: Medical History Abdominal ascites history of intermittent paracentesis, transudative fluid; prior work up has included negative biopsy, ceruloplasmin level normal, low iron, high ferritin, normal TIBC, negative HIV, hepatitis panel negative, JESÚS/SCL 70/double-stranded DNA antibodies negative, Alpha-fetoprotein level unremarkable, nonalcoholic by history Altered mental status Anemia chronic kidney disease Anxiety Anxiety with depression Arteriovenous fistula for hemodialysis in place, secondary Atherosclerosis of coronary artery Stent and balloon angioplasty to proximal 1 OM branch Chronic abdominal pain Chronic respiratory failure on home oxygen and bipap Congestive heart failure preserved ejection fraction COPD (chronic obstructive pulmonary disease) COVID 05/25 Degenerative disc disease, lumbar Epididymitis ESRD on dialysis ESRD on dialysis Generalized anxiety disorder with panic attacks History of coronary angiogram 11/2021 - patent stent History of home oxygen therapy Hypertension uncontrolled Hypertension Hypertensive emergency recurrent episodes Hypertensive emergency Inguinal hernia Low back pain Nicotine dependence, cigarettes, with other nicotine-induced disorders Pulmonary embolism 09/21 CTA inconclusive for very tiny peripheral LEFT lower lobe pulmonary artery sub segmental emboli versus poor opacification. Pulmonary hypertension Scrotal edema Umbilical hernia Urethral stricture Uses bilevel positive airway pressure (BPAP) ventilation at home Surgical History H/O hand surgery Amputation right 2&3 fingers 2017 History of adenoidectomy Stented coronary artery Family History Father No problems noted. Other Hypertension Social History Smoking and tobacco status: current every day smoker cigarettes Packs smoked per day: 1.5 Years cigarettes smoked: 21 [ Other cigarette details: started age 20, currently 0.5ppd ] Alcohol intake: never Marital status: Number of children: 3 Current occupational status: disabled Physical Exam Const: COMMON NORMALS: patient oriented x3 HENMT: COMMON NORMALS: normocephalic and atraumatic HEAD & SCALP: normocephalic and atraumatic Eye: COMMON NORMALS: Equal, round and reactive pupils present and EOMs intact bilaterally PUPIL: Yes Equal, round and reactive pupils present Neck/C-Spine: COMMON NORMALS: full ROM and supple Chest: COMMONS NORMALS: normal inspection of the chest and normal palpation of entire chest wall Resp: COMMON NORMALS: normal respiratory effort, No retractions, No use of accessory muscles and clear to auscultation bilaterally AUSCULTATION: clear to auscultation bilaterally Cardio: COMMON NORMALS: regular rate, regular rhythm and No murmurs present (Cardio) RATE: regular rate RHYTHM: regular rhythm GI: COMMON NORMALS: Normal to inspection, nondistended, normoactive bowel sounds present, Soft to palpation, non-tender and no masses PALPATION: Yes Soft to palpation Extremity: COMMON NORMALS: normal to inspection and full ROM Neuro: COMMON NORMALS: patient oriented x3, moves all extremities and no focal motor deficits Psych: COMMON NORMALS: mental status grossly normal, Normal thought process present and cooperative THOUGHT PROCESS: Normal thought process present Skin: COMMON NORMALS: no rashes or lesions noted and no wounds GENERAL SKIN EXAM: no rashes or lesions noted Course Vital Signs: Vital signs: Vital Signs Pulse Rate 90 07/23/22 04:37 Respiratory Rate 20 H 07/23/22 04:37 Blood Pressure 189/118 07/23/22 04:37 Pulse Oximetry 91 07/23/22 04:37 Oxygen Delivery Me thod 07/23/22 04:37 Oxygen Flow Rate 3 07/23/22 04:16 MDM - Abdominal Pain Medical Decision Making Patient presents here with abdominal pain he does have a chronic umbilical hernia that was easily reduced here. He has been seen here multiple times for that from his ascites. His pains improved here he gets dialysis today at 10 he does have some hyperkalemia and hypoxia I did offer him admission but he states he feels improved and refused admission wants to go home and just got dialyzed today. Lab Data 07/23/22 04:32 07/23/22 04:32 Labs/Radiology: Laboratory Results WBC 6.7 10^3/uL (4.0-10.0) 07/23/22 04:32 RBC 3.18 10^6/uL (4.1-5.3) L 07/23/22 04:32 Hgb 9.3 g/dL (11.7-16.6) L 07/23/22 04:32 Hct 29.2 % (42.0-52.0) L 07/23/22 04:32 MCV 91.8 fl (80-94) 07/23/22 04:32 MCH 29.2 pg (28.0-34.0) 07/23/22 04:32 MCHC 31.8 g/dL (30.0-36.0) 07/23/22 04:32 RDW 17.4 % (12.1-15.1) H 07/23/22 04:32 Plt Count 167 10^3/cmm (130-400) 07/23/22 04:32 MPV 9.2 fL (7.4-10.4) 07/23/22 04:32 Neut % (Auto) 77.8 % 07/23/22 04:32 Lymph % (Auto) 9.4 % 07/23/22 04:32 [place] % (Auto) 6.4 % 07/23/22 04:32 Eos % (Auto) 5.7 % 07/23/22 04:32 Baso % (Auto) 0.4 % 07/23/22 04:32 Neut # (Auto) 5.18 10^3/uL (1.8-7.7) 07/23/22 04:32 Lymph # (Auto) 0.6 10^3/uL (0.8-4.8) L 07/23/22 04:32 [place] # (Auto) 0.4 10^3/uL (0.2-0.9) 07/23/22 04:32 Eos # (Auto) 0.4 10^3/uL (0.0-0.8) 07/23/22 04:32 Baso # (Auto) 0.0 10^3/uL (0.0-0.1) 07/23/22 04:32 Nucleated RBC % (auto) 0 % 07/23/22 04:32 Nucleated RBCs # 0.0 /100WBC 07/23/22 04:32 Sodium 138 mmol/L (136-145) 07/23/22 04:32 Potassium 5.8 mmol/L (3.5-5.1) H 07/23/22 04:32 Chloride 93 mmol/L (98-107) L 07/23/22 04:32 Carbon Dioxide 28 mmol/L (22-29) 07/23/22 04:32 Anion Gap 22.8 (5-19) H 07/23/22 04:32 BUN 42 mg/dL (6-20) H 07/23/22 04:32 Creatinine 7.0 mg/dL (0.7-1.2) H* 07/23/22 04:32 GFR Calculation 8.8 mL/min (90-130) L 07/23/22 04:32 Glucose 88 mg/dL (65-115) 07/23/22 04:32 Calculated Osmolality 296 mOsm/kg (285-295) H 07/23/22 04:32 Calcium 10.3 mg/dL (8.5-10.5) 07/23/22 04:32 Total Bilirubin 1.3 mg/dL (0.15-1.2) H 07/23/22 04:32 AST 13 U/L (0-40) 07/23/22 04:32 ALT 10 U/L (0-41) 07/23/22 04:32 Alkaline Phosphatase 119 U/L (40-130) 07/23/22 04:32 NT-Pro-B Natriuret Pep > 36518 pg/mL (0-125) H 07/23/22 04:32 Total Protein 8.1 g/dL (6.6-8.7) 07/23/22 04:32 Albumin 4.2 g/dL (3.5-5.2) 07/23/22 04:32 Globulin 3.9 g/dL (1.3-4.6) 07/23/22 04:32 Lipase 20 U/L (13-60) 07/23/22 04:32 Discharge Plan Discharge Patient Disposition: Home Clinical Impression: Abdominal pain, ESRD (end stage renal disease), Hyperkalemia Condition: Stable Prescriptions: No Action isosorbide mononitrate 120 mg tablet extended release 24 hr 120 mg PO DAILY Qty: 90 2RF hydralazine 100 mg tablet 100 mg PO TID Qty: 270 3RF Incruse Ellipta 62.5 mcg/actuation blister with device 1 inh INHALATION DAILY Qty: 30 2RF clonazepam 0.5 mg tablet 0.5 mg PO BEDTIME Qty: 30 0RF quetiapine 25 mg tablet 25 mg PO DAILY Qty: 90 0RF cyclobenzaprine 10 mg tablet 10 mg PO Q12H PRN (Reason: muscle spasm) Qty: 30 2RF nitroglycerin 0.4 mg tablet, sublingual 0.4 mg SUBLINGUAL Q5M PRN (Reason: Chest Pain) Qty: 30 5RF Rx Instructions: do not exceed 3 doses per episode clopidogrel 75 mg tablet 75 mg PO DAILY Qty: 90 3RF (DME) DME - BIPAP See Rx Instructions .Route .MEDSUPPLY Qty: 1 0RF Rx Instructions: Inspiratory Pressure: 16mmHg Expiratory Pressure: 8 mmHg Will need oxygen bled in to the machine to maintain sats >/= 90%. (DME) DME - Oxygen See Rx Instructions .Route .MEDSUPPLY Qty: 1 0RF Rx Instructions: Supplemental Oxygen bled into BIPAP at 2-3L to maintain oxygen sats at >/= 90%. lisinopril 40 mg Tablet 40 mg PO DAILY Auryxia 210 mg iron Tablet 420 mg PO TID Rx Instructions: administer with a meal minoxidil 2.5 mg Tablet 2.5 mg PO BID aspirin 81 mg tablet,delayed release (DR/EC) 81 mg PO DAILY amlodipine 10 mg tablet 10 mg PO BEDTIME pantoprazole 40 mg tablet,delayed release (DR/EC) 40 mg PO DAILY albuterol sulfate 90 mcg/actuation HFA aerosol inhaler 2 puff inhalation Q6H PRN (Reason: Shortness Of Breath Or Wheezing) clonidine HCl 0.2 mg tablet 0.2 mg PO TID carvedilol 25 mg tablet 50 mg PO BID polyethylene glycol 3350 [Miralax] 17 gram Powder In Packet 17 g PO DAILY labetalol 200 mg tablet 200 mg PO Q8H hydrocodone-acetaminophen 5-325 mg tablet 1 tab PO Q6H PRN (Reason: Pain) spironolactone 100 mg tablet 100 mg PO DAILY Discharge Orders: Discharge ED (Routine); Ordered 07/23/22 Ordered By: Dayana Nunez Referrals: Mal Peres DO [Primary Care Provider] - 1-3 days Discharge Diet: Advance as tolerated Discharge Activity: Resume usual activity Patient Instructions: Abdominal Pain (ED) Coding Level of Care Code ED Machine Preservative Filler for Cristi Diane
[2022-07-23] MEDS: HYDROmorphone 1 mg/mL INJ 1 mL IVP ×2 (04:31→05:41)
[2022-07-23] MEDS: ondansetron 2 mg/ML SDV 2 mL 4 MG IVP (04:33)
--- NOTE | 2022-07-23 04:35 | ECG_ITS ---
[facility] Test Date: 2022-07-23 Pat Name: Mal Gibbs Department: Room: Gender: Male Head Porter: : 1980 Requested By: Dayana Nunez Order Number: [id number] Mohini MD: Brijesh King M.D. Measurements Intervals [place] Rate: 94 P: 42 RI: 198 QRS: 39 QRSD: 110 T: 86 QT: 390 QTc: 488 Interpretive Statements SINUS RHYTHM POSSIBLE LEFT ATRIAL ENLARGEMENT [-0.1mV P-WAVE IN V1/V2] POSSIBLE LEFT VENTRICULAR HYPERTROPHY [VOLTAGE CRITERIA PLUS LAE OR QRS WIDENING] NONSPECIFIC ST & T-WAVE ABNORMALITY Compared to ECG 07/01/2022 17:24:48 T-wave abnormality now present First degree AV block no longer present Intraventricular conduction delay no longer present Electronically Signed On 07-23-2022 16:44:15 CDT by Brijesh King M.D. [id number]
[2022-07-23] MEDS: hyDRALAzine 20 mg/mL INJ 1 mL IVP ×2 (04:36→09:29)
[2022-07-23 04:39] LABS: Basophils % 0.4 %; Eosinophils # 0.4 10^3/uL (0.0-0.8); Eosinophils % 5.7 %; Hematocrit 29.2 % (42.0-52.0); Hemoglobin 9.3 g/dL (11.7-16.6); Lymphocytes # 0.6 10^3/uL (0.8-4.8); Lymphocytes % 9.4 %; Mean Corpuscular HGB Conc 31.8 g/dL (30.0-36.0); Mean Corpuscular Hemoglobin 29.2 pg (28.0-34.0); Mean Corpuscular Volume 91.8 fl (80-94); Mean Platelet Volume 9.2 fL (7.4-10.4); Monocytes # 0.4 10^3/uL (0.2-0.9); Monocytes % 6.4 %; Neutrophils # 5.18 10^3/uL (1.8-7.7); Neutrophils % 77.8 %; Nucleated Red Blood Cells % 0 %; Platelet Count 167 10^3/cmm (130-400); Red Blood Count 3.18 10^6/uL (4.1-5.3); Red Cell Distribution Width 17.4 % (12.1-15.1); White Blood Count 6.7 10^3/uL (4.0-10.0)
[2022-07-23 05:03] LABS: Alanine Aminotransferase 10 U/L (0-41); Albumin Level 4.2 g/dL (3.5-5.2); Alkaline Phosphatase 119 U/L (40-130); Anion Gap 22.8 (5-19); Aspartate Amino Transferase 13 U/L (0-40); Blood Urea Nitrogen 42 mg/dL (6-20); Calcium 10.3 mg/dL (8.5-10.5); Carbon Dioxide 28 mmol/L (22-29); Chloride 93 mmol/L (98-107); Globulin 3.9 g/dL (1.3-4.6); Glomerular Filtration Rate 8.8 mL/min (90-130); Glucose 88 mg/dL (65-115); Lipase 20 U/L (13-60); Osmolality Calculated 296 mOsm/kg (285-295); Potassium 5.8 mmol/L (3.5-5.1); Sodium 138 mmol/L (136-145); Total Bilirubin 1.3 mg/dL (0.15-1.2); Total Protein 8.1 g/dL (6.6-8.7)
[2022-07-23] MEDS: insulin regular-human 100 units/1 mL 10 UNIT IVP (05:27)
[2022-07-23 05:28] LABS: NT Pro B Type Natriuretic Pept > 70000 pg/mL (0-125)
[2022-07-23] MEDS: lidocaine 2% viscous 15 ML, aluminum-mag hydrox-simethicon 30 ML, sucralfate oral liq 1 GM PO (09:08)
== END 2022-07-23 09:35 | disposition home or self-care (01) ==
PROVIDERS: Emergency Provider Emergency Medicine; PCP Family Medicine
DX: R10.9 Unspecified abdominal pain (principal); I13.2 Hypertensive heart and chronic kidney disease with heart failure and with stage 5 chronic kidney disease, or end stage renal disease; N18.6 End stage renal disease; I50.9 Heart failure, unspecified; I25.10 Atherosclerotic heart disease of native coronary artery without angina pectoris; J44.9 Chronic obstructive pulmonary disease, unspecified; F17.210 Nicotine dependence, cigarettes, uncomplicated
CPT/HCPCS: 71045; 80053; 83690; 83880; 85025; 93005; 96374; 96375; 96376; 99285; J0360; J1170; J1815; J2405

== ENCOUNTER → 2022-07-24 11:09 | Day surgery (SDC) | payer MEDICARE, MEDICAID, SELFPAY ==
[2022-07-22 08:11] VITALS: BMI 22.1
--- NOTE | 2022-07-24 11:12 | US_ITS ---
WS: [id number] EXAMINATION: US abdomen lmt fluid [id number] REASON FOR EXAM: ascites COMPARISON: None available. ORDER DATE: 07/24/2022 11:48 AM TECHNIQUE: Transabdominal ultrasound of 4 abdominal quadrants FINDINGS: All 4 quadrants are imaged by ultrasound to evaluate for ascites. There is only a small amount of ascites in all 4 quadrants. US/US abdomen lmt fluid [id number] IMPRESSION: Insufficient ascites for paracentesis.
[2022-07-24 11:19] VITALS: BP 194/110; PULSE 88; RESP 16; TEMP 36.9; O2SAT 92
== END ==
PROVIDERS: Radiology Neuroradiology; PCP Family Medicine; Visit Provider Family Medicine
DX: R18.8 Other ascites (principal)
CPT/HCPCS: 76705

== ENCOUNTER 2022-07-26 21:08 | Inpatient (IN) | payer MEDICARE, MEDICAID, SELFPAY ==
[2022-07-26 21:30] VITALS: BP 225/125; PULSE 97; RESP 18; TEMP 36.8; O2SAT 95; BMI 19.8
[2022-07-26 22:46] VITALS: BP 223/138; PULSE 113; RESP 25; O2SAT 94
[2022-07-26 23:22] LABS: Basophils % 0.7 %; Eosinophils # 0.4 10^3/uL (0.0-0.8); Eosinophils % 8.1 %; Hematocrit 25.7 % (42.0-52.0); Hemoglobin 8.2 g/dL (11.7-16.6); Lymphocytes # 0.7 10^3/uL (0.8-4.8); Lymphocytes % 11.9 %; Mean Corpuscular HGB Conc 31.9 g/dL (30.0-36.0); Mean Corpuscular Hemoglobin 29.9 pg (28.0-34.0); Mean Corpuscular Volume 93.8 fl (80-94); Monocytes # 0.5 10^3/uL (0.2-0.9); Monocytes % 8.6 %; Neutrophils # 3.82 10^3/uL (1.8-7.7); Neutrophils % 70.3 %; Nucleated Red Blood Cells % 0 %; Platelet Count 175 10^3/cmm (130-400); Red Blood Count 2.74 10^6/uL (4.1-5.3); Red Cell Distribution Width 17.3 % (12.1-15.1); White Blood Count 5.4 10^3/uL (4.0-10.0)
[2022-07-26 23:31] LABS: Alanine Aminotransferase 12 U/L (0-41); Alkaline Phosphatase 125 U/L (40-130); Anion Gap 18.6 (5-19); Aspartate Amino Transferase 17 U/L (0-40); Blood Urea Nitrogen 27 mg/dL (6-20); C Reactive Protein 48.8 mg/L (0.0-4.9); Calcium 9.7 mg/dL (8.5-10.5); Carbon Dioxide 29 mmol/L (22-29); Chloride 93 mmol/L (98-107); Globulin 3.4 g/dL (1.3-4.6); Glomerular Filtration Rate 12.4 mL/min (90-130); Glucose 96 mg/dL (65-115); Magnesium 1.9 mg/dL (1.7-2.3); Osmolality Calculated 287 mOsm/kg (285-295); Phosphorus 4.7 mg/dL (2.5-4.5); Potassium 4.6 mmol/L (3.5-5.1); Sodium 136 mmol/L (136-145); Total Bilirubin 1.1 mg/dL (0.15-1.2); Total Protein 7.4 g/dL (6.6-8.7)
[2022-07-26] MEDS: ondansetron 2 mg/ML SDV 2 mL 4 MG IVP (23:36)
[2022-07-26 23:37] VITALS: RESP 17
[2022-07-26] MEDS: fentaNYL 50 mcg/mL INJ 2mL IVP (23:37)
[2022-07-26] MEDS: labetalol 5 mg/mL SDV 20mL 20 MG IVP (23:39)
[2022-07-26 23:41] VITALS: BP 228/133; PULSE 101; RESP 20; O2SAT 91
--- NOTE | 2022-07-26 23:56 | CTR_ITS ---
PROCEDURE INFORMATION: Exam: CT Abdomen And Pelvis Without Contrast Exam date and time: 07/27/2022 12:02 AM Age: 41 years old Clinical indication: Abdominal pain; Localized; Other: Central; Prior surgery; Surgery type: Coronary stents; Additional info: Abd pain, HX right inguinal hernia TECHNIQUE: Imaging protocol: Computed tomography of the abdomen and pelvis without contrast. Radiation optimization: All CT scans at this facility use at least one of these dose optimization techniques: automated exposure control; mA and/or kV adjustment per patient size (includes targeted exams where dose is matched to clinical indication); or iterative reconstruction. REPORTING DATA: Count of CT and Cardiac NM exams in prior 12 months: This patient has received 15 known CTs and 0 known cardiac nuclear medicine studies in the 12 months prior to the current study. COMPARISON: CT abdomen pelvis con [id number] 06/09/2022 7:20 AM RADIATION DOSE METRICS: Total DLP (mGy-cm): 393.73 FINDINGS: Lungs: Interstitial septal thickening with nodular opacities in the lung bases which appear improved since previous. Pleural spaces: Trace right pleural effusion. Heart: Cardiomegaly is again present. Small pericardial effusion. Liver: Stable hepatomegaly. Gallbladder and bile ducts: Normal. No calcified stones. No ductal dilation. Pancreas: Normal. No ductal dilation. Spleen: Mild splenomegaly is unchanged. Adrenal glands: Normal. No mass. Kidneys and ureters: Markedly atrophic [place] kidneys are unchanged. Stomach and bowel: Scattered regions of bowel wall thickening is seen secondary to ascites. There is no evidence of bowel obstruction. Appendix: No evidence of appendicitis. Intraperitoneal space: Moderate volume ascites is unchanged. There is layering high density material in the deep pelvis on series 3, image 69 which is unchanged. Vasculature: Stable atherosclerosis. Lymph nodes: Bilateral inguinal adenopathy is similar. Urinary bladder: Decompressed bladder. Reproductive: Unremarkable as visualized. Bones/joints: The bones are stable. Soft tissues: Umbilical hernia with fluid in the hernia sac is unchanged. Moderate right inguinal hernia with fluid in the sac is unchanged. CT/CT abdomen pelvis wo con [id number] IMPRESSION: 1. Stable moderate volume complex ascites with stable hepatomegaly and splenomegaly. 2. Trace right pleural effusion. Infiltrates versus pulmonary vascular congestion in the lung bases appear improved. Correlate for continued infection. Trace right pleural effusion also present.
[2022-07-27] VITALS (86 sets, daily range): BP systolic 138–217; BP diastolic 73–134; PULSE 67–116; RESP 11–31; TEMP 36.7–36.8; O2SAT 85–99; BMI 20.2
[2022-07-27] MEDS: hyDRALAzine 20 mg/mL INJ 1 mL IVP (01:15)
[2022-07-27] MEDS: fentaNYL 50 mcg/mL INJ 2mL IVP (01:16)
[2022-07-27] MEDS: labetalol 5 mg/mL SDV 20mL 20 MG IVP (01:19)
[2022-07-27] MEDS: nitroglycerin 0.4 mg sublingual Tablet SUBLINGUAL (02:07)
--- NOTE | 2022-07-27 03:04 | ED_ITS ---
HPI - Abdominal Pain General: Chief Complaint: Abdominal Pain Stated Complaint: abd/groin pain Time Seen by Provider: 07/26/22 22:26 Source: patient History of Present Illness: 41-year-old male well-known to the emergency department. He presents with chest discomfort, shortness of breath, and right groin pain as well as periumbilical pain. MD elicited complaint: abdominal pain Location: Periumbilical, Pelvis and Groin Severity: moderate Quality: cramping and aching Radiation: none Migration to: no migration Exacerbating factors: movement and other (Coughing) Relieving factors: nothing Associated Symptoms: Reports bloating, nausea and poor appetite; Denies diarrhea, fever(s) and vomiting Review of Systems Const: Denies: fever(s) ENMT: Denies: throat pain Card: Denies: chest pain Resp: Denies: dyspnea GI: Reports: abdominal pain, nausea and bloating; Denies: vomiting or diarrhea Musc: Reports: back pain PFS ED PFSH: Medical History (Updated 07/27/22 @ 05:38 by Anya Vargas MD) Abdominal ascites history of intermittent paracentesis, transudative fluid; prior work up has included negative biopsy, ceruloplasmin level normal, low iron, high ferriti n, normal TIBC, negative HIV, hepatitis panel negative, JESÚS/SCL 70/double- stranded DNA antibodies negative, Alpha-fetoprotein level unremarkable, nonalcoholic by history, has hepatomegaly and splenomegaly Anemia chronic kidney disease Arteriovenous fistula for hemodialysis in place, secondary Atherosclerosis of coronary artery Stent and balloon angioplasty to proximal 1 OM branch Chronic abdominal pain Chronic respiratory failure on home oxygen and bipap Congestive heart failure preserved ejection fraction COPD (chronic obstructive pulmonary disease) COVID 05/25 Degenerative disc disease, lumbar Depression Epididymitis 06/2022 ESRD on dialysis Generalized anxiety disorder with panic attacks History of cardiovascular stress test 07/2022 at [facility] perfusion imaging probably normal, no reversible defects, small fixed defect in apical anterior wall, EF 54%, nonischemic resp onse to stress by EKG criteria History of coronary angiogram 11/2021 - patent stent History of home oxygen therapy Hypertension uncontrolled Hypertensive emergency recurrent episodes Inguinal hernia Low back pain Nicotine dependence, cigarettes, with other nicotine-induced disorders Pulmonary embolism 09/21 CTA inconclusive for very tiny peripheral LEFT lower lobe pulmonary artery sub segmental emboli versus poor opacification. Pulmonary hypertension Umbilical hernia Urethral stricture Uses bilevel positive airway pressure (BPAP) ventilation at home Surgical History H/O hand surgery Amputation right 2&3 fingers 2017 History of adenoidectomy Stented coronary artery Family History (Updated 07/27/22 @ 04:56 by Anya Vargas MD) Other Hypertension Social History (Updated 07/27/22 @ 03:49 by Anya Vargas MD) Smoking and tobacco status: current every day smoker cigarettes Packs smoked per day: 1.5 Years cigarettes smoked: 21 [ Other cigarette details: started age 20, currently 0.5ppd ] Alcohol intake: never Number of children: 3 Current occupational status: disabled Physical Exam Const: GENERAL APPEARANCE: cooperative, ill appearing and frail appearing NUTRITIONAL APPEARANCE: thin ORIENTATION/CONSCIOUSNESS: Yes awake, Yes oriented to person, Yes oriented to place and Yes oriented to time HENMT: COMMON NORMALS: normocephalic, atraumatic and Normal external nose present HEAD & SCALP: normocephalic and atraumatic FACE & SINUS: normal facial exam NOSE: Normal external nose present Eye: COMMON NORMALS: Equal, round and reactive pupils present and EOMs intact bilaterally PUPIL: Yes Equal, round and reactive pupils present Neck/C-Spine: GENERAL: Yes trachea midline Chest: CHEST: Yes Symmetrical chest wall rise Resp: COMMON NORMALS: clear to auscultation bilaterally EFFORT & INSPECTION: Yes tachypneic and Yes uses accessory muscles AUSCULTATION: clear to auscultation bilaterally and diminished lung sounds Cardio: COMMON NORMALS: regular rate and regular rhythm RATE: regular rate RHYTHM: regular rhythm GI: INSPECTION: Yes Anasarca and Yes abdominal distension PALPATION: Yes Tenderness to palpation present (GI) OTHER: Umbilical hernia present. Soft and reducible, but tender. No significant warmth. : OTHER: Right inguinal hernia which is significant is present. Again soft and somewhat reducible, but very tender. No warmth or redness. Extremity: GENERAL: Yes edema (Mild) Neuro: BUCK COMA SCALE: document GCS findings Buck coma scale eye opening: Spontaneous Buck coma scale verbal response: Orientated Buck coma scale motor response: Obey commands [place] coma scale total score: 15 SENSORIUM/ORIENTATION: Yes oriented to person, Yes oriented to place and Yes oriented to time Psych: COMMON NORMALS: mental status grossly normal and cooperative Course Vital Signs: Vital signs: Vital Signs Temperature 98.2 F 07/26/22 21:30 Pulse Rate 89 07/27/22 01:00 Respiratory Rate 16 07/27/22 04:10 Blood Pressure 217/128 07/27/22 03:06 Pulse Oximetry 93 07/27/22 04:10 Oxygen Delivery Me thod 07/27/22 01:00 Oxygen Flow Rate 2 07/27/22 01:00 MDM - Abdominal Pain Medical Decision Making Patient with umbilical and right inguinal hernias. These are soft, not warm or red. They are very tender. CT reveals fluid present in inguinal hernia sac without bowel presents or strangulation, etc. There is moderate volume complex ascites on CT as well. Pulmonary vascular congestion is noted in the lungs on CT. Hemoglobin is 8.2. White cell count is 5.4. Creatinine is 5.2 potassium is 4.6. Magnesium 1.9. With hernia sacs only containing fluid, there is nothing to reduce. The patient has been hypertensive here. He has had multiple antihypertensive medications in the ER including more than 1 dose of labetalol, hydralazine, and nitroglycerin. His blood pressure still 217/128. This is despite having dialysis on Thursday as scheduled. With inability to control his blood pressure, likely partially due to pain involving his hernias, he may require admission. Were trying nitroglycerin paste, as well as clonidine currently. Hospitalist is aware. If observed, early dialysis could be an option. Lab Data 07/26/22 22:40 07/26/22 22:40 Labs/Radiology: Radiology Impressions Abdomen/Pelvis CT 07/26/22 23:56 IMPRESSION: 1. Stable moderate volume complex ascites with stable hepatomegaly and splenomegaly. 2. Trace right pleural effusion. Infiltrates versus pulmonary vascular congestion in the lung bases appear improved. Correlate for continued infection. Trace right pleural effusion also present. Laboratory Results WBC 5.4 10^3/uL (4.0-10.0) 07/26/22 22:40 RBC 2.74 10^6/uL (4.1-5.3) L 07/26/22 22:40 Hgb 8.2 g/dL (11.7-16.6) L 07/26/22 22:40 Hct 25.7 % (42.0-52.0) L 07/26/22 22:40 MCV 93.8 fl (80-94) 07/26/22 22:40 MCH 29.9 pg (28.0-34.0) 07/26/22 22:40 MCHC 31.9 g/dL (30.0-36.0) 07/26/22 22:40 RDW 17.3 % (12.1-15.1) H 07/26/22 22:40 Plt Count 175 10^3/cmm (130-400) 07/26/22 22:40 MPV 10.0 fL (7.4-10.4) 07/26/22 22:40 Neut % (Auto) 70.3 % 07/26/22 22:40 Lymph % (Auto) 11.9 % 07/26/22 22:40 [place] % (Auto) 8.6 % 07/26/22 22:40 Eos % (Auto) 8.1 % 07/26/22 22:40 Baso % (Auto) 0.7 % 07/26/22 22:40 Neut # (Auto) 3.82 10^3/uL (1.8-7.7) 07/26/22 22:40 Lymph # (Auto) 0.7 10^3/uL (0.8-4.8) L 07/26/22 22:40 [place] # (Auto) 0.5 10^3/uL (0.2-0.9) 07/26/22 22:40 Eos # (Auto) 0.4 10^3/uL (0.0-0.8) 07/26/22 22:40 Baso # (Auto) 0.0 10^3/uL (0.0-0.1) 07/26/22 22:40 Nucleated RBC % (auto) 0 % 07/26/22:40 Nucleated RBCs # 0.0 /100WBC 07/26/22 22:40 Sodium 136 mmol/L (136-145) 07/26/22 22:40 Potassium 4.6 mmol/L (3.5-5.1) 07/26/22 22:40 Chloride 93 mmol/L (98-107) L 07/26/22 22:40 Carbon Dioxide 29 mmol/L (22-29) 07/26/22 22:40 Anion Gap 18.6 (5-19) 07/26/22 22:40 BUN 27 mg/dL (6-20) H 07/26/22 22:40 Creatinine 5.2 mg/dL (0.7-1.2) H 07/26/22 22:40 GFR Calculation 12.4 mL/min (90-130) L 07/26/22 22:40 Glucose 96 mg/dL (65-115) 07/26/22 22:40 Calculated Osmolality 287 mOsm/kg (285-295) 07/26/22 22:40 Calcium 9.7 mg/dL (8.5-10.5) 07/26/22 22:40 Phosphorus 4.7 mg/dL (2.5-4.5) H 07/26/22 22:40 Magnesium 1.9 mg/dL (1.7-2.3) 07/26/22 22:40 Total Bilirubin 1.1 mg/dL (0.15-1.2) 07/26/22 22:40 AST 17 U/L (0-40) 07/26/22 22:40 ALT 12 U/L (0-41) 07/26/22 22:40 Alkaline Phosphatase 125 U/L (40-130) 07/26/22 22:40 C-Reactive Protein 48.8 mg/L (0.0-4.9) H 07/26/22 22:40 Total Protein 7.4 g/dL (6.6-8.7) 07/26/22 22:40 Albumin 4.0 g/dL (3.5-5.2) 07/26/22 22:40 Globulin 3.4 g/dL (1.3-4.6) 07/26/22 22:40 Discharge Plan Discharge Patient Disposition: Admitted As Inpatient Admit Provider: Anya Vargas Clinical Impression: Hypertensive urgency, ESRD on dialysis Condition: Stable Coding Level of Care Code ED Fitness And Wellness Instructor for Cristi Diane
[2022-07-27] MEDS: cloNIDine 0.1 mg Tablet 0.2 MG PO (03:06)
[2022-07-27] MEDS: nitroglycerin 1 gm/inch oint Pkt 2 INCH TOPICAL (03:06)
--- NOTE | 2022-07-27 03:37 | PM.HP ---
Providers/Chief Complaint Admitting Physician: Anya Vargas MD Primary Care Provider: Mal Peres DO Chief Complaint: abd/groin pain History of Present Illness Mal Gibbs is a 41 year old male who presented to the emergency room with chief complaint of abdominal and groin pain. He has problems with chronic abdominal pain related to ascites along with groin pain related to a right inguinal hernia. In June he had epididymitis for which he received antibiotic treatment. Not currently having same degree of pain in his scrotum as he did then, more in the right lower quadrant and inguinal canal. Denies recent fevers. He has had little improvement in his pain despite several doses of IV fentanyl and subsequent IV morphine. CT of the abdomen and pelvis showed stable ascites, hepatomegaly, splenomegaly and both umbilical and inguinal hernias with fluid unchanged from prior examinations. In addition to complaints of pain, patient was noted to have significant hypertension again with blood pressures as high as 228/138. In addition to pain medications, he has received 40 mg of labetalol in total, hydralazine 20 mg, nitroglycerin sublingual and topical, clonidine 0.2 mg with little improvement in blood pressures. Most recent value 217/128. At rest he is feeling okay but with movement he does get short of breath. Denies any chest pain. No nausea or vomiting. No recent fevers. Last dialysis was Thursday. He reports compliance with his medications but is not able to tell me what he takes at home. He was last hospitalized at [facility] from July 14 to . He had originally presented at [facility] with hypertensive emergency and fluid overload. He was on BiPAP therapy, received emergent dialysis and was treated with Cardene drip among multiple other medications. He had a renal artery ultrasound during that stay that showed no evidence of renal artery stenosis on the left. Right renal artery was not visualized. He underwent cardiovascular stress testing that did not show evidence of ischemia. EF was preserved. He was seen by both cardiology and nephrology during the hospital stay. He was treated empirically with antibiotics for possible pneumonia. Review of medication list for Mr. Gibbs at [facility] and here are different somewhat. This is not surprising given that patient is not able to confirm what he takes at home. He also admitted at [facility] that he had not been compliant with medication management at home per discharge summary. As one example of medication list variances, discharge summary from [facility] shows carvedilol 6.25 mg bid being started as a new medication whereas our list has shown carvedilol 50 mg twice daily since sometime last year. In reviewing external medication records it appears that he was taken off of high-dose carvedilol and switched to labetalol at some point, before that reinitiation of carvedilol. Instructions on discharge summary from [facility] earlier this month indicate that patient should stop taking labetalol. Lisinopril and spironolactone were also stopped due to significant hyperkalemia at that presentation. Again today patient is unable or unwilling to review medication list for accuracy. He reports that he is taking his medications as prescribed from [facility] earlier this month. Another variance is [facility] records indicate that he is on Eliquis 2.5 mg twice a day whereas we do not have that information. Again patient is unable or unwilling to assist with obtaining an accurate medication list. At the present time his primary complaint is pain in the groin and abdomen rated at a 10 out of 10. He has recently been started on a Cardene drip. He is being admitted to the ICU for hypertensive urgency. Review of Systems General: Reports: Other (As per history of present illness) Eyes: Denies: change in vision Card: Denies: chest pain or syncope Resp: Reports: dyspnea GI: Reports: abdominal pain; Denies: vomiting, constipation or hematochezia : Denies: testicular pain Skin/Breast: Reports: other (No new sores) Neuro: Reports: headache(s) and other (Denies new or acute motor or sensory deficits) Medications/Allergies Home Medications Medication Instructions Recorded Confirmed Last Taken Type umeclidinium 62.5 mcg/actuation 1 inh inhalation DAILY #30 ea 08/06/21 07/24/22 07/24/22 Rx blister powder for inhalation (Incruse Ellipta) ferric citrate 210 mg iron tablet 420 mg PO TID 11/03/21 07/24/22 07/24/22 History (Auryxia) lisinopril 40 mg tablet 40 mg PO DAILY 11/03/21 07/24/22 07/24/22 History minoxidil 2.5 mg tablet 2.5 mg PO BID 11/22/21 07/24/22 07/24/22 History nitroglycerin 0.4 mg sublingual 0.4 mg sublingual Q5M PRN Chest 12/02/21 07/24/22 07/24/22 Rx tablet Pain #30 tabs clopidogrel 75 mg tablet 75 mg PO DAILY #90 tabs 01/28/22 07/24/22 07/20/22 Rx albuterol sulfate 90 mcg/actuation 2 puff inhalation Q6H PRN 02/21/22 07/24/22 07/24/22 History aerosol inhaler Shortness Of Breath Or Wheezing amlodipine 10 mg tablet 10 mg PO BEDTIME 02/21/22 07/24/22 07/24/22 History aspirin 81 mg tablet,delayed 81 mg PO DAILY 02/21/22 07/24/22 07/20/22 History release clonidine HCl 0.2 mg tablet 0.2 mg PO TID 02/21/22 07/24/22 07/24/22 History pantoprazole 40 mg tablet,delayed 40 mg PO DAILY 02/21/22 07/24/22 07/24/22 History release DME - BIPAP #1 ea 02/25/22 07/22/22 07/22/22 Rx DME - Oxygen #1 ea 02/25/22 07/24/22 07/24/22 Rx clonazepam 0.5 mg tablet 0.5 mg PO BEDTIME #30 tabs 04/10/22 07/24/22 07/24/22 Rx cyclobenzaprine 10 mg tablet 10 mg PO Q12H PRN muscle spasm #30 04/10/22 07/24/22 07/24/22 Rx tabs quetiapine 25 mg tablet 25 mg PO DAILY #90 tabs 04/10/22 07/24/22 07/24/22 Rx carvedilol 25 mg tablet 50 mg PO BID 04/22/22 07/24/22 07/24/22 History hydralazine 100 mg tablet 100 mg PO TID #270 tabs 04/24/22 07/24/22 07/24/22 Rx isosorbide mononitrate 120 mg 120 mg PO DAILY #90 tabs 04/24/22 07/24/22 07/24/22 Rx tablet,extended release 24 hr polyethylene glycol 3350 17 gram 17 g PO DAILY 06/09/22 07/24/22 07/24/22 History oral powder packet (Miralax) hydrocodone 5 mg-acetaminophen 325 1 tab PO Q6H PRN Pain 07/01/22 07/24/22 07/24/22 History mg tablet labetalol 200 mg tablet 200 mg PO Q8H 07/01/22 07/24/22 07/24/22 History spironolactone 100 mg tablet 100 mg PO DAILY 07/01/22 07/24/22 07/24/22 History Allergies Allergy/AdvReac Type Severity Reaction Status Date / Time nifedipine Allergy Seth Verified 07/24/22 11:16 Lip/Tongue/Throat Additional Medication Information Patient unable to verify home medication list. Accuracy of above listed medications as highly suspect. Recent discharge from [facility] showed the following medications list on 07/16/2022: Amoxicillin clavulanic acid 500 mg on dialysis days x2 doses Carvedilol 6.25 mg p.o. every 12 hours Amlodipine 10 mg p.o. daily Bisacodyl 5 mg daily as needed PhosLo 667 mg p.o. 3 times a day with meals Clonidine 0.3 mg 3 times daily Eliquis 2.5 mg p.o. twice daily Fluticasone propionate 2 sprays each nostril daily Hydrocodone/acetaminophen 5/325 1 p.o. every 6 hours as needed for moderate pain Hydroxyzine 25 mg p.o. every 6 hours as needed anxiety Isosorbide mononitrate 120 mg extended release 2 tablets daily in the morning Lactulose 15 mL p.o. 3 times a day Minoxidil 10 mg p.o. 3 times a day Protonix 40 mg daily MiraLAX 1 packet by mouth daily as needed for constipation Rifaximin 550 mg p.o. twice daily Senokot S1 p.o. twice daily Triamcinolone acetamide cream to affected area twice daily Umeclidinium 1 puff bid PFSH Acute PFSH: Medical History (Updated 07/27/22 @ 05:38 by Anya Vargas MD) Abdominal ascites history of intermittent paracentesis, transudative fluid; prior work up has included negative biopsy, ceruloplasmin level normal, low iron, high ferritin, normal TIBC, negative HIV, hepatitis panel negative, JESÚS/SCL 70/double-stranded DNA antibodies negative, Alpha-fetoprotein level unremarkable, nonalcoholic by history, has hepatomegaly and splenomegaly Anemia chronic kidney disease Arteriovenous fistula for hemodialysis in place, secondary Atherosclerosis of coronary artery Stent and balloon angioplasty to proximal 1 OM branch Chronic abdominal pain Chronic respiratory failure on home oxygen and bipap Congestive heart failure preserved ejection fraction COPD (chronic obstructive pulmonary disease) COVID 05/25 Degenerative disc disease, lumbar Depression Epididymitis 06/2022 ESRD on dialysis Generalized anxiety disorder with panic attacks History of cardiovascular stress test 07/2022 at [facility] perfusion imaging probably normal, no reversible defects, small fixed defect in apical anterior wall, EF 54%, nonischemic response to stress by EKG criteria History of coronary angiogram 11/2021 - patent stent History of home oxygen therapy Hypertension uncontrolled Hypertensive emergency recurrent episodes Inguinal hernia Low back pain Nicotine dependence, cigarettes, with other nicotine-induced disorders Pulmonary embolism 09/21 CTA inconclusive for very tiny peripheral LEFT lower lobe pulmonary artery sub segmental emboli versus poor opacification. Pulmonary hypertension Umbilical hernia Urethral stricture Uses bilevel positive airway pressure (BPAP) ventilation at home Surgical History H/O hand surgery Amputation right 2&3 fingers 2016 History of adenoidectomy Stented coronary artery Family History (Updated 07/27/22 @ 04:56 by Anya Vargas MD) Other Hypertension Social History (Updated 07/27/22 @ 03:49 by Anya Vargas MD) Smoking and tobacco status: current every day smoker cigarettes Packs smoked per day: 1.5 Years cigarettes smoked: 21 [ Other cigarette details: started age 20, currently 0.5ppd ] Alcohol intake: never Number of children: 3 Current occupational status: disabled Vitals/I&O/Wt Last Vital Signs Temp 98.2 F 07/26/22 21:30 Pulse 89 07/27/22 01:00 Resp 24 H 07/27/22 01:16 BP 217/128 07/27/22 03:06 Pulse Ox 96 07/27/22 01:45 O2 Del Method 07/27/22 01:00 O2 Flow Rate 2 07/27/22 01:00 Weight last 48 hrs Weight 68.039 kg Physical Exam Narrative: Sitting straight up in bed, restless but cooperative. Normocephalic. Pupils are equally reactive. [place] sclera. Oropharynx with moist mucous membranes. Neck is supple. Lungs with scattered crackles and wheezes. When leans back becomes more short of breath with pursed lip breathing and mild retractions noted that resolve after a minute or 2. Not able to adequately assess for JVD. Cardiovascular exam reveals a regular rhythm. No murmurs. Apical impulse is nondisplaced. Abdomen is soft. Mild tenderness in the lower quadrants without rebound or guarding. Right inguinal hernia is again noted, tender, soft. Trace edema to the lower extremities. Fistula with thrill noted in left upper extremity. Patient has bronze colored skin that is dry with scattered minor sores and bruises. Speech is clear. Moves all extremities. Oriented to person, place and to situation though not able to provide details of history such as specifics regarding medications and when last taken. Data 07/26/22 22:40 07/26/22 22:40 Other Labs: Radiology Impressions Abdomen/Pelvis CT 07/26/22 23:56 IMPRESSION: 1. Stable moderate volume complex ascites with stable hepatomegaly and splenomegaly. 2. Trace right pleural effusion. Infiltrates versus pulmonary vascular congestion in the lung bases appear improved. Correlate for continued infection. Trace right pleural effusion also present. Laboratory Results WBC 5.4 10^3/uL (4.0-10.0) 07/26/22 22:40 RBC 2.74 10^6/uL (4.1-5.3) L 07/26/22 22:40 Hgb 8.2 g/dL (11.7-16.6) L 07/26/22 22:40 Hct 25.7 % (42.0-52.0) L 07/26/22:40 MCV 93.8 fl (80-94) 07/26/22 22:40 MCH 29.9 pg (28.0-34.0) 07/26/22 22:40 MCHC 31.9 g/dL (30.0-36.0) 07/26/22 22:40 RDW 17.3 % (12.1-15.1) H 07/26/22 22:40 Plt Count 175 10^3/cmm (130-400) 07/26/22 22:40 MPV 10.0 fL (7.4-10.4) 07/26/22 22:40 Neut % (Auto) 70.3 % 07/26/22 22:40 Lymph % (Auto) 11.9 % 03/25/23 22:40 [place] % (Auto) 8.6 % 07/26/22 22:40 Eos % (Auto) 8.1 % 07/26/22 22:40 Baso % (Auto) 0.7 % 07/26/22 22:40 Neut # (Auto) 3.82 10^3/uL (1.8-7.7) 07/26/22 22:40 Lymph # (Auto) 0.7 10^3/uL (0.8-4.8) L 07/26/22 22:40 [place] # (Auto) 0.5 10^3/uL (0.2-0.9) 07/26/22 22:40 Eos # (Auto) 0.4 10^3/uL (0.0-0.8) 07/26/22 22:40 Baso # (Auto) 0.0 10^3/uL (0.0-0.1) 07/26/22 22:40 Nucleated RBC % (auto) 0 % 07/26/22:40 Nucleated RBCs # 0.0 /100WBC 07/26/22 22:40 Sodium 136 mmol/L (136-145) 07/26/22 22:40 Potassium 4.6 mmol/L (3.5-5.1) 07/26/22 22:40 Chloride 93 mmol/L (98-107) L 07/26/22 22:40 Carbon Dioxide 29 mmol/L (22-29) 07/26/22 22:40 Anion Gap 18.6 (5-19) 07/26/22 22:40 BUN 27 mg/dL (6-20) H 07/26/22 22:40 Creatinine 5.2 mg/dL (0.7-1.2) H 07/26/22 22:40 GFR Calculation 12.4 mL/min (90-130) L 07/26/22 22:40 Glucose 96 mg/dL (65-115) 07/26/22 22:40 Calculated Osmolality 287 mOsm/kg (285-295) 07/26/22 22:40 Calcium 9.7 mg/dL (8.5-10.5) 07/26/22 22:40 Phosphorus 4.7 mg/dL (2.5-4.5) H 07/26/22 22:40 Magnesium 1.9 mg/dL (1.7-2.3) 07/26/22 22:40 Total Bilirubin 1.1 mg/dL (0.15-1.2) 07/26/22 22:40 AST 17 U/L (0-40) 07/26/22 22:40 ALT 12 U/L (0-41) 07/26/22 22:40 Alkaline Phosphatase 125 U/L (40-130) 07/26/22 22:40 C-Reactive Protein 48.8 mg/L (0.0-4.9) H 07/26/22 22:40 Total Protein 7.4 g/dL (6.6-8.7) 07/26/22 22:40 Albumin 4.0 g/dL (3.5-5.2) 07/26/22 22:40 Globulin 3.4 g/dL (1.3-4.6) 07/26/22 22:40 A&P Assessment and plan (1) Hypertensive urgency: In patient with malignant hypertension, historically on multiple medications to control. In reviewing recent records from [facility] along with records from here, it appears that patient is treated by multiple providers in [place] as well as more locally in [place] and [place]. Looking at medication list at both places, there are numerous providers prescribing medications. Patient reports compliance with medication regimen presently though admitted to noncompliance when up [facility]. I suspect inconsistent medication management by Mr. Gibbs himself along with multiple different providers attempting to treat him due to utilization of different health care centers is a contributing factor. Pain control and at times lack thereof also likely contributor. He does have chronic anxiety and has been on benzodiazepines as well. (2) Chronic abdominal pain: In areas where he has known hernias around the umbilicus and right inguinal region. Is intermittently prescribed narcotic pain medications outpatient, but does not currently have any available. CT without acute intra-abdominal abnormalities identified today. (3) ESRD on dialysis: Dialysis on Wednesdays and Fridays, has fistula in left upper extremity (4) Abdominal ascites: Stable volume ascites, hepatomegaly and splenomegaly (5) Anemia: Secondary to chronic kidney disease with iron deficiency, stable (6) COPD (chronic obstructive pulmonary disease): Chronic, not acutely exacerbated at this time (7) Inguinal hernia: Right inguinal hernia, partially reducible, fluid-filled on CT imaging, chronic (8) Umbilical hernia: Chronic, fluid-filled, reducible (9) Anxiety: Chronically on hydroxyzine as needed, at last hospital stay here had been prescribed Prozac for depression but does not appear to be taking medication. Had previously been on Seroquel for sleep but does not look like he is on it presently. (10) Patient under care of multiple providers: Many of whom prescribed differerent medications contributing to challenging health care managment, in addition to variable compliance with both medications and dialysis (11) Nicotine dependence, cigarettes, with other nicotine-induced disorders: Plan Observation admission We will continue Cardene drip for now, titrating as able to keep blood pressures between 170 and 200 systolic I have ordered antihypertensive management as per the recent discharge list from [facility] to include carvedilol 6.25 mg twice daily, clonidine 0.3 mg p.o. 3 times daily, minoxidil 10 mg p.o. 3 times daily, isosorbide though I will only order 120 mg daily (versus 240 prescribed at [facility]). I have not presently continued amlodipine. Monitor blood pressures closely for response to treatment We will consult nephrology for hemodialysis per usual schedule Mondays, Wednesdays and Fridays PhosLo with meals Continue home Eliquis Continue home lactulose and rifaximin We will provide hydrocodone/acetaminophen as needed for pain Hydroxyzine as needed for anxiety Try to avoid IV narcotics Add iron, known to be iron deficient Breathing treatments if needed Monitor hernias for acute change PPI Nicotine patch if needed Has followed with Dr. Dia on an outpatient basis, has a inspector poising and sees Dr. Peres for primary care. Anticipate follow-up with all providers after discharge. Encourage patient to maintain compliance with medications and to try to limit the number of places in which he seeks medical care as safely able to to decrease having multiple providers prescribe different medications and such. Plans were discussed with patient and he was given an opportunity to ask questions Full code Attestations Medical Necessity Statement*: Anticipated stay less than 2 midnights at this time in a patient again presenting with hypertensive urgency who has known chronically difficult to control hypertension. Plans are as described. and High Time for a total of 75 minutes, includes reviewing past or interval history, examining/interviewing patient, placing orders, counseling patient/family/other support and documenting encounter Diagnoses Hypertensive urgency I16.0 Chronic abdominal pain R10.9; G89.29 ESRD on dialysis N18.6; Z99.2 Abdominal ascites R18.8 Anemia D64.9 COPD (chronic obstructive pulmonary disease) J44.9 Inguinal hernia K40.90 Umbilical hernia K42.9 Anxiety F41.9 Patient under care of multiple providers Z78.9 Nicotine dependence, cigarettes, with other nicotine-induced disorders F17.218
[2022-07-27] MEDS: nicardipine 20 MG/200 ML PREMIX 50 MG IV (03:50)
[2022-07-27] MEDS: morphine 4 mg/mL SDV 1 mL IVP (04:10)
[2022-07-27] MEDS: minoxidil 10 mg Tablet PO ×3 (05:34→21:28)
[2022-07-27] MEDS: HYDROcodone-acetaminophen 5-325 mg Tablet 1 TAB PO ×3 (05:34→22:34)
[2022-07-27] MEDS: nicardipine 20 MG/200 ML PREMIX 125 MG IV (05:35)
[2022-07-27] MEDS: ondansetron 2 mg/ML SDV 2 mL 4 MG IVP (05:55)
--- NOTE | 2022-07-27 06:31 | PC.NURSE ---
Patient arrived on unit from ED 0500 with complaints of abd/groin pain. BP controlled with cardene drip <170 systolic. Patient has minimally communicated but is AOx4. Unable to confirm Home Meds, will advise dayshift to repeat attempt. Diet order not received however patient arrive on unit with drink in hand.
[2022-07-27] MEDS: apixaban 5 mg Tablet 2.5 MG PO ×2 (08:09→21:27)
[2022-07-27] MEDS: ferrous sulfate EC 325 mg Tablet PO ×2 (08:10→17:49)
[2022-07-27] MEDS: sennosides-docusate Tablet 1 TAB PO ×2 (08:10→17:49)
[2022-07-27] MEDS: carvedilol 6.25 mg Tablet PO ×2 (08:10→17:49)
[2022-07-27] MEDS: cloNIDine 0.1 mg Tablet 0.3 MG PO ×3 (08:10→21:29)
[2022-07-27] MEDS: pantoprazole DR 40 mg Tablet PO (08:10)
[2022-07-27] MEDS: isosorbide mononitrate ER 60 mg Tablet 120 MG PO (08:10)
[2022-07-27] MEDS: calcium acetate 667 mg Capsule 1334 MG PO ×3 (08:20→17:49)
[2022-07-27] MEDS: nicardipine 20 MG/200 ML PREMIX 75 MG IV (09:26)
--- NOTE | 2022-07-27 09:44 | PM.CONSULT ---
Providers/Reason For Consult Consulting Physician/Specialty*: [facility]/Nephrology Reason for Consult*: ESRD Attending Physician: Tiarra Villegas MD Primary Care Provider: Mal Peres DO History of Present Illness History of Present Illness Mal Gibbs is a 41 year old male with past medical history of hypertension, end-stage renal disease on hemodialysis Thursday, chronic anemia, coronary artery disease, COPD, CHF, chronic low back pain pulmonary hypertension presented to the hospital for groin pain. CT abdomen pelvis that showed ascites and hepatomegaly and splenomegaly with trace pleural effusion. Also showed cardiomegaly with pulmonary vascular congestion. Lab data significant for hemoglobin of 8.2 potassium of 4.6, creatinine 5.2. Blood pressure was elevated at 228/138, placed on nicardipine drip. Medications/Allergies Home Medications Medication Instructions Recorded Confirmed Last Taken Type umeclidinium 62.5 mcg/actuation 1 inh inhalation DAILY #30 ea 08/06/21 07/24/22 07/24/22 Rx blister powder for inhalation (Incruse Ellipta) ferric citrate 210 mg iron tablet 420 mg PO TID 11/03/21 07/24/22 07/24/22 History (Auryxia) lisinopril 40 mg tablet 40 mg PO DAILY 11/03/21 07/24/22 07/24/22 History minoxidil 2.5 mg tablet 2.5 mg PO BID 11/22/21 07/24/22 07/24/22 History nitroglycerin 0.4 mg sublingual 0.4 mg sublingual Q5M PRN Chest 12/02/21 07/24/22 07/24/22 Rx tablet Pain #30 tabs clopidogrel 75 mg tablet 75 mg PO DAILY #90 tabs 01/28/22 07/24/22 07/20/22 Rx albuterol sulfate 90 mcg/actuation 2 puff inhalation Q6H PRN 02/21/22 07/24/22 07/24/22 History aerosol inhaler Shortness Of Breath Or Wheezing amlodipine 10 mg tablet 10 mg PO BEDTIME 02/21/22 07/24/22 07/24/22 History aspirin 81 mg tablet,delayed 81 mg PO DAILY 02/21/22 07/24/22 07/20/22 History release clonidine HCl 0.2 mg tablet 0.2 mg PO TID 02/21/22 07/24/22 07/24/22 History pantoprazole 40 mg tablet,delayed 40 mg PO DAILY 02/21/22 07/24/22 07/24/22 History release DME - BIPAP #1 ea 02/25/22 07/22/22 07/22/22 Rx DME - Oxygen #1 ea 02/25/22 07/24/22 07/24/22 Rx clonazepam 0.5 mg tablet 0.5 mg PO BEDTIME #30 tabs 04/10/22 07/24/22 07/24/22 Rx cyclobenzaprine 10 mg tablet 10 mg PO Q12H PRN muscle spasm #30 04/10/22 07/24/22 07/24/22 Rx tabs quetiapine 25 mg tablet 25 mg PO DAILY #90 tabs 04/10/22 07/24/22 07/24/22 Rx carvedilol 25 mg tablet 50 mg PO BID 04/22/22 07/24/22 07/24/22 History hydralazine 100 mg tablet 100 mg PO TID #270 tabs 04/24/22 07/24/22 07/24/22 Rx isosorbide mononitrate 120 mg 120 mg PO DAILY #90 tabs 04/24/22 07/24/22 07/24/22 Rx tablet,extended release 24 hr polyethylene glycol 3350 17 gram 17 g PO DAILY 06/09/22 07/24/22 07/24/22 History oral powder packet (Miralax) hydrocodone 5 mg-acetaminophen 325 1 tab PO Q6H PRN Pain 07/01/22 07/24/22 07/24/22 History mg tablet labetalol 200 mg tablet 200 mg PO Q8H 07/01/22 07/24/22 07/24/22 History spironolactone 100 mg tablet 100 mg PO DAILY 07/01/22 07/24/22 07/24/22 History Allergies Allergy/AdvReac Type Severity Reaction Status Date / Time nifedipine Allergy ALGY-Swell Verified 07/24/22 11:16 Lip/Tongue/Throat Current Medications Generic Name Dose Route Start Last Admin Trade Name Freq PRN Reason Stop Dose Admin Hydrocodone Bitart/Acetaminophen 1 tab 07/27/22 05:01 07/27/22 05:34 Hydrocodone-Acetaminophen 5-325 Mg Tablet PO 1 tab Q4H PRN Administration Moderate to severe pain 1st Apixaban 2.5 mg 07/27/22 09:00 07/27/22 08:09 Apixaban 5 Mg Tablet PO 2.5 mg BID@0900,2100 ARTEM Administration Calcium Acetate 1,334 mg 07/27/22 08:00 07/27/22 08:20 Calcium Acetate 667 Mg Capsule PO 1,334 mg TIDWM ARTEM Administration Carvedilol 6.25 mg 07/27/22 09:00 07/27/22 08:10 Carvedilol 6.25 Mg Tablet PO 6.25 mg BID ARTEM Administration Clonidine HCl 0.3 mg 07/27/22 09:00 07/27/22 08:10 Clonidine 0.1 Mg Tablet PO 0.3 mg TID ARTEM Administration Ferrous Sulfate 325 mg 07/27/22 08:00 07/27/22 08:10 Ferrous Sulfate Ec 325 Mg Tablet PO 325 mg BIDWM ARTEM Administration Nicardipine/Sodium Chloride 20 mg in 200 mls @ 0 mls/hr 07/27/22 03:45 07/27/22 09:26 Cardene IV 7.5 mg/hr .Q0M ARTEM 75 mls/hr Administration Protocol Per Protocol Isosorbide Mononitrate 120 mg 07/27/22 09:00 07/27/22 08:10 Isosorbide Mononitrate Er 60 Mg Tablet PO 120 mg DAILY [facility] Administration Lactulose 10 gm 07/27/22 09:00 07/27/22 08:16 Lactulose Oral Liq 20 Gm/30 Ml Udc PO Not Given TID ARTEM Minoxidil 10 mg 07/27/22 06:00 07/27/22 05:34 Minoxidil 10 Mg Tablet PO 10 mg Q8H ARTEM Administration Ondansetron HCl 4 mg 07/27/22 05:01 07/27/22 05:55 Ondansetron 2 Mg/Ml Sdv 2 Ml IVP 4 mg Q6H PRN Administration NAUSEA AND VOMITING Pantoprazole Sodium 40 mg 07/27/22 09:00 07/27/22 08:[address] 40 Mg Tablet PO 40 mg DAILY ARTEM Administration Rifaximin 550 mg 07/27/22 09:00 07/27/22 08:10 Rifaximin 550 Mg Tablet PO 550 mg BID ARTEM Administration Protocol Senna/Docusate Sodium 1 tab 07/27/22 09:00 07/27/22 08:10 Sennosides-Docusate Tablet PO 1 tab BID ARTEM Administration PFSH Acute PFSH: Medical History (Updated 07/27/22 @ 05:38 by Anya Vargas MD) Abdominal ascites history of intermittent paracentesis, transudative fluid; prior work up has included negative biopsy, ceruloplasmin level normal, low iron, high ferritin, normal TIBC, negative HIV, hepatitis panel negative, JESÚS/SCL 70/double-stranded DNA antibodies negative, Alpha-fetoprotein level unremarkable, nonalcoholic by history, has hepatomegaly and splenomegaly Anemia chronic kidney disease Arteriovenous fistula for hemodialysis in place, secondary Atherosclerosis of coronary artery Stent and balloon angioplasty to proximal 1 OM branch Chronic abdominal pain Chronic respiratory failure on home oxygen and bipap Congestive heart failure preserved ejection fraction COPD (chronic obstructive pulmonary disease) COVID 05/25 Degenerative disc disease, lumbar Depression Epididymitis 06/2022 ESRD on dialysis Generalized anxiety disorder with panic attacks History of cardiovascular stress test 07/2022 at [facility] perfusion imaging probably normal, no reversible defects, small fixed defect in apical anterior wall, EF 54%, nonischemic response to stress by EKG criteria History of coronary angiogram 11/2021 - patent stent History of home oxygen therapy Hypertension uncontrolled Hypertensive emergency recurrent episodes Inguinal hernia Low back pain Nicotine dependence, cigarettes, with other nicotine-induced disorders Pulmonary embolism 09/21 CTA inconclusive for very tiny peripheral LEFT lower lobe pulmonary artery sub segmental emboli versus poor opacification. Pulmonary hypertension Umbilical hernia Urethral stricture Uses bilevel positive airway pressure (BPAP) ventilation at home Surgical History H/O hand surgery Amputation right 2&3 fingers 2017 History of adenoidectomy Stented coronary artery Family History (Updated 07/27/22 @ 04:56 by Anya Vargas MD) Other Hypertension Social History (Updated 07/27/22 @ 03:49 by Anya Vargas MD) Smoking and tobacco status: current every day smoker cigarettes Packs smoked per day: 1.5 Years cigarettes smoked: 21 [ Other cigarette details: started age 20, currently 0.5ppd ] Alcohol intake: never Number of children: 3 Current occupational status: disabled Vitals/I&O/Wt Last Vital Signs Temp 98.2 F 07/27/22 07:42 Pulse 101 H 07/27/22 08:58 Resp 18 07/27/22 08:58 BP 158/96 07/27/22 08:10 Pulse Ox 95 07/27/22 08:58 O2 Del Method 07/27/22 08:58 O2 Flow Rate 2 07/27/22 08:58 07/26/22 07/27/22 07/27/22 22:59 06:59 14:59 Intake Total 143.75 / 143.75 200 / 200 Balance 143.75 / 143.75 200 / 200 Weight last 48 hrs Weight 69.4 kg Weight 69.4 kg Weight 68.039 kg Data 07/26/22 22:40 07/26/22 22:40 A&P Assessment and plan (1) ESRD on dialysis: Plan 1. End-stage renal disease: On Thursday dialysis now presents with hypertensive urgency and volume overload, -Plan for hemodialysis today 2. Hypertensive urgency: On nicardipine drip, restart home meds and should improve after UF with HD 3. Liver cirrhosis and ascites 4. Chronic anemia: Monitor 5. Acute on chronic respiratory failure: O2 dependent, on BiPAP Patient evaluated using audiovisual cart. Time spent 45 minutes Consult Attestations Medical Necessity Statement: see above Coding Level of Care Code Acute Code for Chg Fwd Diagnoses ESRD on dialysis N18.6; Z99.2
--- NOTE | 2022-07-27 13:24 | PC.NURSE ---
Room change completed. Pt transferred from ICU 5 to ICU 8. ICU 8 dialysis capabilities/
--- NOTE | 2022-07-27 14:48 | PM.MISC ---
Miscellaneous Note Purpose of Documentation: Overnight labs and H&P reviewed. Patient getting dialysis now at the time of assessment. Currently blood pressure 143/78 while getting dialysis. He is also on Cardene drip. Plan for today is to continue with dialysis, attempt to wean off his Cardene drip, all home medications resumed
[2022-07-28] VITALS (50 sets, daily range): BP systolic 131–200; BP diastolic 71–117; PULSE 72–92; RESP 0–27; TEMP 36.6–37; O2SAT 85–100; BMI 20.2
[2022-07-28] MEDS: HYDROcodone-acetaminophen 5-325 mg Tablet 1 TAB PO ×4 (04:11→20:05)
--- NOTE | 2022-07-28 04:15 | PC.NURSE ---
BP has risen throughout this nurses shift. Dr. Vargas notified of last reading of 189/110. No new orders received. Scheduled BP meds begin at 0600. Patient has reported abdominal pain through shift which has been controlled with hydrocodone. No reports of N/V. Patient has remained AOx4 and cooperative. No morning labs were scheduled and hospitalist advised, no new orders received. Uneventful shift.
[2022-07-28] MEDS: minoxidil 10 mg Tablet PO ×3 (05:54→21:13)
[2022-07-28] MEDS: ferrous sulfate EC 325 mg Tablet PO ×2 (08:44→18:19)
[2022-07-28] MEDS: pantoprazole DR 40 mg Tablet PO (08:45)
[2022-07-28] MEDS: isosorbide mononitrate ER 60 mg Tablet 120 MG PO (08:45)
[2022-07-28] MEDS: cloNIDine 0.1 mg Tablet 0.3 MG PO ×3 (08:45→21:13)
[2022-07-28] MEDS: sennosides-docusate Tablet 1 TAB PO ×2 (08:46→18:20)
[2022-07-28] MEDS: calcium acetate 667 mg Capsule 1334 MG PO ×3 (08:46→18:19)
[2022-07-28] MEDS: carvedilol 6.25 mg Tablet PO ×2 (08:46→18:19)
[2022-07-28] MEDS: apixaban 5 mg Tablet 2.5 MG PO ×2 (08:46→21:14)
--- NOTE | 2022-07-28 13:11 | PC.NURSE ---
Pt refused his lunch tray. He demanded a cola, sandwich and a bag of chips. Cola and sandwich provided. Pt informed that it is not following his renal diet, he stated he did not care he does not eat like that at home. This nurse suggested to him that might be why he has to be admitted to hospital so frequently. Pt stated It is your fault , you cannot control my blood pressure. Attempt to re-educate pt about complying with renal diet would have better health outcomes. Per pt. he does not want to hear it.
--- NOTE | 2022-07-28 15:19 | PC.NURSE ---
Pt requested another sandwich and soda. Pt informed that was not renal diet. Pt stated knew. If I did not want it I would not have asked for it.
--- NOTE | 2022-07-28 18:10 | PC.NURSE ---
Pt requesting a sandwich and soda again. When asked about his dinner, pt stated he could not eat that crap, he does not like it. Discussed with pt the purpose and reasoning for a renal dialysis diet, also how high in phosphorus sodas can be. Pt said isn't that what the binders are for? Attempted to re educate pt on binders for helping keep phosphorus levels low in addition to the renal diet. Pt did not want to listen to any of this conversation as evidenced by his outburst this place is crap all the want to do is give me dialysis, you can't even control my blood pressure, I did not come in here for dialysis. I came in here for abdominal pain, my hernia pain. I do not eat that diet at home. You all are keeping me from getting on the transplant list with all of your bullshit. Camilo has no way of knowing what I eat at home . Informed pt that his chemistry panel could tell doctors many things, that could be related to his poor dietary habits. Also tried to discuss the abdominal pain could be related to ascites, fluid build up in his abdomen. Pt stated that it was not part of the problem. Pt provided the sandwich and soda per his demands.
--- NOTE | 2022-07-28 19:08 | P.PN_ITS ---
Subjective Subjective: Patient was seen and examined this morning blood pressure is appropriately controlled, renal plans to dialyze the patient tomorrow in the morning, and thereafter patient can be discharged. Medications: Medication Review Details: Generic Name Dose Route Start Last Admin Trade Name Freq PRN Reason Stop Dose Admin Hydrocodone Bitart /Acetaminophen 1 tab 07/27/22 05:01 07/28/22 15:15 Hydrocodone-Acet aminophen 5-325 Mg Tablet PO 1 tab Q4H PRN Administration Moderate to sever e pain 1st Apixaban 2.5 mg 07/27/22 09:00 07/28/22 08:46 Apixaban 5 Mg Ta blet PO 2.5 mg BID@0900,2100 ARTEM Administration Calcium Acetate 1,334 mg 07/27/22 08:00 07/28/22 18:19 Calcium Acetate 667 Mg Capsule PO 1,334 mg TIDWM ARTEM Administration Carvedilol 6.25 mg 07/27/22 09:00 07/28/22 18:19 Carvedilol 6.25 Mg Tablet PO 6.25 mg BID ARTEM Administration Clonidine HCl 0.3 mg 07/27/22 09:00 07/28/22 15:14 Clonidine 0.1 Mg Tablet PO 0.3 mg TID ARTEM Administration Ferrous Sulfate 325 mg 07/27/22 08:00 07/28/22 18:19 Ferrous Sulfate Ec 325 Mg Tablet PO 325 mg BIDWM ARTEM Administration Nicardipine/Sodium Chloride 20 mg in 200 mls @ 0 mls/hr 07/27/22 03:45 07/27/22 11:25 Cardene IV 0 mg/hr .Q0M ARTEM 0 mls/hr Titration Protocol Per Protocol Isosorbide Mononit rate 120 mg 07/27/22 09:00 07/28/22 08:45 Isosorbide [place] itrate Er 60 Mg Ta blet PO 120 mg DAILY ARTEM Administration Lactulose 10 gm 07/27/22 09:00 07/28/22 15:15 Lactulose Oral L iq 20 Gm/30 Ml Udc PO Not Given TID ARTEM Minoxidil 10 mg 07/27/22 06:00 07/28/22 15:14 Minoxidil 10 Mg Tablet PO 10 mg Q8H ARTEM Administration Ondansetron HCl 4 mg 07/27/22 05:01 07/27/22 05:55 Ondansetron 2 Mg /Ml Sdv 2 Ml IVP 4 mg Q6H PRN Administration NAUSEA AND VOMITI NG Pantoprazole Sodiu m 40 mg 07/27/22 09:00 07/28/22 08:[address] 40 Mg Tablet PO 40 mg DAILY ARTEM Administration Rifaximin 550 mg 07/27/22 09:00 07/28/22 18:19 Rifaximin 550 Mg Tablet PO 550 mg BID ARTEM Administration Protocol Senna/Docusate Sod ium 1 tab 07/27/22 09:00 07/28/22 18:20 Sennosides-Docus ate Tablet PO 1 tab BID ARTEM Administration Vitals/I&O/Wt Last Vital Signs Temp 97.8 F 07/28/22 08:00 Pulse 78 07/28/22 14:00 Resp 19 H 07/28/22 14:00 BP 143/84 07/28/22 15:14 Pulse Ox 90 07/28/22 14:00 O2 Del Method 07/28/22 14:00 O2 Flow Rate 3 07/28/22 14:00 07/28/22 07/28/22 07/28/22 06:59 14:59 22:59 Intake Total 0 / 997.083 500 / 500 Output Total 0 / 0 Balance 0 / 997.083 500 / 500 Weight last 48 hrs Weight 69.4 kg Weight 69.4 kg Weight 69.4 kg Weight 68.039 kg Physical Exam Const: COMMON NORMALS: patient oriented x3 HENMT: COMMON NORMALS: normocephalic and atraumatic HEAD & SCALP: no rmocephalic and atraumatic Resp: COMMON NORMALS: normal respiratory effort, No retractions, No use of accessory muscles and clear to auscultation bilaterally EFFORT & INSPECTION: Yes symmetric chest movement AUSCULTATION: clear to auscultation bilaterally Cardio: COMMON NORMALS: regular rate, regular rhythm, S1 normal heart sound present, S2 normal heart sound present, No gallops present (Cardio), No murmurs present (Cardio), No rub (Cardio) and Peripheral pulses 2+ throughout RATE: regular rate RHYTHM: regular rhythm HEART SOUNDS: S1 normal heart sound present and S2 normal heart sound present PERIPHERAL PULSES: Peripheral pulses 2+ throughout GI: COMMON NORMALS: Normal to inspection, nondistended, normoactive bowel sounds present, Soft to palpation, non-tender, No hepatosplenomegaly present and no masses AUSCULTATION: Yes normoactive bowel sounds PALPATION: Yes Soft to palpation and Yes No hepatosplenomegaly present RECTAL EXAM: Yes deferred Extremity: COMMON NORMALS: no clubbing, cyanosis or edema and no pedal edema Neuro: COMMON NORMALS: patient oriented x3 Data 07/26/22 22:40 07/26/22 22:40 A&P Assessment and plan (1) Hypertensive urgency: Initially was on nicardipine drip which has been turned off currently is on. Cl onidine isosorbide mononitrate minoxidil, carvedilol.Blood pressure is appropriately controlled. (2) COPD (chronic obstructive pulmonary disease): (3) Chronic abdominal pain: In inguinal and umbilical hernia region. CT abdomen and pelvis has not shown any acute pathology. (4) Abdominal ascites: (5) ESRD on dialysis: On dialysis Thursday and Thursday. Last dialysis received yesterday. Renal plan to dialyze the patient tomorrow morning again. (6) Anemia: Secondary to chronic kidney disease with iron deficiency, stable (7) Umbilical hernia: Chronic, fluid-filled, reducible (8) Inguinal hernia: Right inguinal hernia, partially reducible, fluid-filled on CT imaging, chronic Attestations Medical Necessity Statement*: She needs to be in hospital for management hypertensive urgency and need for hemodialysis Coding Level of Care Code 91829 Diagnoses Hypertensive urgency I16.0 COPD (chronic obstructive pulmonary disease) J44.9 Chronic abdominal pain R10.9; G89.29 Abdominal ascites R18.8 ESRD on dialysis N18.6; Z99.2 Anemia D64.9 Umbilical hernia K42.9 Inguinal hernia K40.90
--- NOTE | 2022-07-28 21:04 | P.PN_ITS ---
Subjective Subjective: on 2L O2 Medications: Reviewed: Yes Vitals/I&O/Wt Last Vital Signs Temp 97.8 F 07/28/22 08:00 Pulse 76 07/28/22 20:16 Resp 16 07/28/22 20:16 BP 165/98 07/28/22 19:00 Pulse Ox 96 07/28/22 20:16 O2 Del Method 07/28/22 20:16 O2 Flow Rate 3 07/28/22 20:16 07/28/22 07/28/22 07/28/22 06:59 14:59 22:59 Intake Total 0 / 997.083 500 / 500 600 / 1100 Output Total 0 / 0 0 / 0 Balance 0 / 997.083 500 / 500 600 / 1100 Weight last 48 hrs Weight 69.4 kg Weight 69.4 kg Weight 69.4 kg Weight 68.039 kg Physical Exam Narrative: awake , alert , no acute distress, crackles bilaterally per report, S1-S2 regular rate and rhythm per report, has edema. Data 07/26/22 22:40 07/26/22 22:40 A&P Assessment and plan (1) ESRD on dialysis: Plan 1. End-stage renal disease: On Thursday dialysis now presents with hypertensive urgency and volume overload, -Plan for hemodialysis tomorrow 2. Hypertensive urgency: s/p nicardipine drip, restarted home meds and UF with HD 3. Liver cirrhosis and ascites 4. Chronic anemia: Monitor 5. Acute on chronic respiratory failure: O2 dependent, on BiPAP Patient evaluated using audiovisual cart. Time spent 45 minutes Attestations 2 Medical Necessity Statement*: needs to be in hospital for management hypertensive urgency and need for hemodialysis Coding Level of Care Code Acute Code for Chg Fwd Diagnoses ESRD on dialysis N18.6; Z99.2
[2022-07-28] MEDS: hyDROXYzine 25 mg Capsule PO (21:19)
[2022-07-29] VITALS (17 sets, daily range): BP systolic 137–203; BP diastolic 66–121; PULSE 74–90; RESP 14–21; TEMP 36.4–37.2; O2SAT 88–100; BMI 21.6
[2022-07-29] MEDS: HYDROcodone-acetaminophen 5-325 mg Tablet 1 TAB PO ×2 (04:38→08:54)
[2022-07-29] MEDS: minoxidil 10 mg Tablet PO ×2 (06:19→13:24)
--- NOTE | 2022-07-29 06:35 | PC.NURSE ---
Patient has rested well through the night. Pain has been managed and BP has remained stable for patient's normal. Dialysis nurse is on unit at 0630 this morning.
[2022-07-29] MEDS: calcium acetate 667 mg Capsule 1334 MG PO ×2 (08:48→13:24)
[2022-07-29] MEDS: isosorbide mononitrate ER 60 mg Tablet 120 MG PO (08:49)
[2022-07-29] MEDS: apixaban 5 mg Tablet 2.5 MG PO (08:50)
[2022-07-29] MEDS: cloNIDine 0.1 mg Tablet 0.3 MG PO (08:50)
[2022-07-29] MEDS: ferrous sulfate EC 325 mg Tablet PO (08:50)
[2022-07-29] MEDS: sennosides-docusate Tablet 1 TAB PO (08:51)
[2022-07-29] MEDS: pantoprazole DR 40 mg Tablet PO (08:51)
[2022-07-29] MEDS: carvedilol 6.25 mg Tablet PO (08:51)
--- NOTE | 2022-07-29 11:04 | PM.PN ---
Subjective Subjective: getting HD Medications: Reviewed: Yes Vitals/I&O/Wt Last Vital Signs Temp 97.9 F 07/29/22 08:00 Pulse 78 07/29/22 10:17 Resp 17 07/29/22 10:00 BP 171/95 07/29/22 10:00 Pulse Ox 95 07/29/22 10:17 O2 Del Method 07/29/22 10:17 O2 Flow Rate 3 07/29/22 10:17 07/28/22 07/29/22 07/29/22 22:59 06:59 14:59 Intake Total 840 / 1340 640 / 1980 650 / 650 Output Total 0 / 0 Balance 840 / 1340 640 / 1980 650 / 650 Weight last 48 hrs Weight 74.389 kg Weight 69.4 kg Physical Exam Narrative: awake , alert , no acute distress, crackles bilaterally per report, S1-S2 regular rate and rhythm per report, has edema. Data 07/26/22 22:40 07/26/22 22:40 A&P Assessment and plan (1) ESRD on dialysis: Plan 1. End-stage renal disease: On Thursday dialysis now presents with hypertensive urgency and volume overload, -Plan for hemodialysis today 2. Hypertensive urgency: s/p nicardipine drip, restarted home meds and UF with HD 3. Liver cirrhosis and ascites 4. Chronic anemia: Monitor 5. Acute on chronic respiratory failure: O2 dependent, on BiPAP Patient evaluated using audiovisual cart. Time spent 30 minutes Attestations Medical Necessity Statement*: can DC Coding Level of Care Code Acute Code for Chg Fwd Diagnoses ESRD on dialysis N18.6; Z99.2
--- NOTE | 2022-07-29 12:36 | PM.DCS ---
Discharge Providers Date of Admission: 07/28/22 16:39 Date of Discharge: July 29, 2022 Attending Provider at Admission: Anya Vargas MD Attending Provider at Discharge: Carroll Hercules MD Primary Care Provider: Mal Peres DO Diagnoses at Discharge Discharge Diagnosis (1) ESRD on dialysis: Status: Inactive Reason for Visit Reason for Visit: abd/groin pain Hospital Course Hospital Course 41-year-old male with past medical history of hypertension, coronary artery disease status post PCI, end-stage renal disease dialysis dependent (MWF), HFpEF , initially presented with chief complaint of abdominal pain as well as groin pain: CT abdomen and pelvis showed: No acute intra-abdominal or pelvic pathology,stable ascites, hepatomegaly, splenomegaly and both umbilical and inguinal hernias with fluid unchanged from prior examinations, patient was also found to be in hypertensive urgency, on admission, for which she was started on nicardipine drip, later he was transitioned to p.o. antihypertensives, blood pressure was decently controlled at the time of discharge, he was also continued on his hemodialysis during the hospital stay. Patient has chronic abdominal pain mostly in the region of umbilical and inguinal hernia, not significantly changed since the past. Hypertensive urgency is likely secondary to medication noncompliance.Patient has been counseled regarding this and has been asked to be compliant with oral medications. overall patient responded well to above medical management and was discharged in stable condition to home, he will continue with his routine hemodialysis as outpatient. Physical Exam Const: COMMON NORMALS: patient oriented x3 HENMT: COMMON NORMALS: normocephalic and atraumatic HEAD & SCALP: normocephalic and atraumatic Resp: COMMON NORMALS: normal respiratory effort, No retractions, No use of accessory muscles and clear to auscultation bilaterally EFFORT & INSPECTION: Yes symmetric chest movement AUSCULTATION: clear to auscultation bilaterally Cardio: COMMON NORMALS: regular rate, regular rhythm, S1 normal heart sound present, S2 normal heart sound present, No gallops present (Cardio), No murmurs present (Cardio), No rub (Cardio) and Peripheral pulses 2+ throughout RATE: regular rate RHYTHM: regular rhythm HEART SOUNDS: S1 normal heart sound present and S2 normal heart sound present PERIPHERAL PULSES: Peripheral pulses 2+ throughout GI: COMMON NORMALS: Normal to inspection, nondistended, normoactive bowel sounds present, Soft to palpation, non-tender, No hepatosplenomegaly present and no masses AUSCULTATION: Yes normoactive bowel sounds PALPATION: Yes Soft to palpation and Yes No hepatosplenomegaly present RECTAL EXAM: Yes deferred Extremity: COMMON NORMALS: no clubbing, cyanosis or edema and no pedal edema Neuro: COMMON NORMALS: patient oriented x3 Discharge Data Studies Completed and Pending Completed Studies During Hospitalization Category Date Time Status CT abdomen pelvis wo con [id number] Stat Cat Scan 07/26/22 23:56 Completed Radiology Impressions Abdomen/Pelvis CT 07/26/22 23:56 IMPRESSION: 1. Stable moderate volume complex ascites with stable hepatomegaly and splenomegaly. 2. Trace right pleural effusion. Infiltrates versus pulmonary vascular congestion in the lung bases appear improved. Correlate for continued infection. Trace right pleural effusion also present. Laboratory Results WBC 5.4 10^3/uL (4.0-10.0) 07/26/22 22:40 RBC 2.74 10^6/uL (4.1-5.3) L 07/26/22 22:40 Hgb 8.2 g/dL (11.7-16.6) L 07/26/22 22:40 Hct 25.7 % (42.0-52.0) L 07/26/22 22:40 MCV 93.8 fl (80-94) 07/26/22 22:40 MCH 29.9 pg (28.0-34.0) 07/26/22 22:40 MCHC 31.9 g/dL (30.0-36.0) 07/26/22 22:40 RDW 17.3 % (12.1-15.1) H 07/26/22 22:40 Plt Count 175 10^3/cmm (130-400) 07/26/22 22:40 MPV 10.0 fL (7.4-10.4) 07/26/22 22:40 Neut % (Auto) 70.3 % 07/26/22 22:40 Lymph % (Auto) 11.9 % 07/26/22 22:40 [place] % (Auto) 8.6 % 07/26/22 22:40 Eos % (Auto) 8.1 % 07/26/22 22:40 Baso % (Auto) 0.7 % 07/26/22 22:40 Neut # (Auto) 3.82 10^3/uL (1.8-7.7) 07/26/22 22:40 Lymph # (Auto) 0.7 10^3/uL (0.8-4.8) L 07/26/22 22:40 [place] # (Auto) 0.5 10^3/uL (0.2-0.9) 07/26/22 22:40 Eos # (Auto) 0.4 10^3/uL (0.0-0.8) 07/26/22 22:40 Baso # (Auto) 0.0 10^3/uL (0.0-0.1) 07/26/22 22:40 Nucleated RBC % (auto) 0 % 07/26/22:40 Nucleated RBCs # 0.0 /100WBC 07/26/22 22:40 Sodium 136 mmol/L (136-145) 07/26/22 22:40 Potassium 4.6 mmol/L (3.5-5.1) 07/26/22 22:40 Chloride 93 mmol/L (98-107) L 07/26/22 22:40 Carbon Dioxide 29 mmol/L (22-29) 07/26/22 22:40 Anion Gap 18.6 (5-19) 07/26/22 22:40 BUN 27 mg/dL (6-20) H 07/26/22 22:40 Creatinine 5.2 mg/dL (0.7-1.2) H 07/26/22 22:40 GFR Calculation 12.4 mL/min (90-130) L 07/26/22 22:40 Glucose 96 mg/dL (65-115) 07/26/22 22:40 Calculated Osmolality 287 mOsm/kg (285-295) 07/26/22 22:40 Calcium 9.7 mg/dL (8.5-10.5) 07/26/22 22:40 Phosphorus 4.7 mg/dL (2.5-4.5) H 07/26/22 22:40 Magnesium 1.9 mg/dL (1.7-2.3) 07/26/22 22:40 Total Bilirubin 1.1 mg/dL (0.15-1.2) 07/26/22 22:40 AST 17 U/L (0-40) 07/26/22 22:40 ALT 12 U/L (0-41) 07/26/22 22:40 Alkaline Phosphatase 125 U/L (40-130) 07/26/22 22:40 C-Reactive Protein 48.8 mg/L (0.0-4.9) H 07/26/22 22:40 Total Protein 7.4 g/dL (6.6-8.7) 07/26/22 22:40 Albumin 4.0 g/dL (3.5-5.2) 07/26/22 22:40 Globulin 3.4 g/dL (1.3-4.6) 07/26/22 22:40 Vitals Last Vital Signs Temp 98.8 F 07/29/22 11:37 Pulse 90 07/29/22 11:37 Resp 14 07/29/22 11:37 BP 169/97 07/29/22 11:37 Pulse Ox 95 07/29/22 10:17 O2 Del Method 07/29/22 10:17 O2 Flow Rate 3 07/29/22 10:17 Discharge Plan Discharge Patient Disposition: Home Condition: Stable Prescriptions: Continued hydralazine 100 mg tablet 100 mg PO TID Qty: 270 3RF Incruse Ellipta 62.5 mcg/actuation blister with device 1 inh INHALATION DAILY Qty: 30 2RF clonazepam 0.5 mg tablet 0.5 mg PO BEDTIME Qty: 30 0RF quetiapine 25 mg tablet 25 mg PO DAILY Qty: 90 0RF cyclobenzaprine 10 mg tablet 10 mg PO Q12H PRN (Reason: muscle spasm) Qty: 30 2RF nitroglycerin 0.4 mg tablet, sublingual 0.4 mg SUBLINGUAL Q5M PRN (Reason: Chest Pain) Qty: 30 5RF Rx Instructions: do not exceed 3 doses per episode clopidogrel 75 mg tablet 75 mg PO DAILY Qty: 90 3RF (DME) DME - BIPAP See Rx Instructions .Route .MEDSUPPLY Qty: 1 0RF Rx Instructions: Inspiratory Pressure: 16mmHg Expiratory Pressure: 8 mmHg Will need oxygen bled in to the machine to maintain sats >/= 90%. (DME) DME - Oxygen See Rx Instructions .Route .MEDSUPPLY Qty: 1 0RF Rx Instructions: Supplemental Oxygen bled into BIPAP at 2-3L to maintain oxygen sats at >/= 90%. lisinopril 40 mg Tablet 40 mg PO DAILY Auryxia 210 mg iron Tablet 420 mg PO TID Rx Instructions: administer with a meal minoxidil 2.5 mg Tablet 2.5 mg PO BID aspirin 81 mg tablet,delayed release (DR/EC) 81 mg PO DAILY amlodipine 10 mg tablet 10 mg PO BEDTIME pantoprazole 40 mg tablet,delayed release (DR/EC) 40 mg PO DAILY albuterol sulfate 90 mcg/actuation HFA aerosol inhaler 2 puff inhalation Q6H PRN (Reason: Shortness Of Breath Or Wheezing) polyethylene glycol 3350 [Miralax] 17 gram Powder In Packet 17 g PO DAILY carvedilol 6.25 mg tablet 6.25 mg PO BID clonidine HCl 0.3 mg tablet 0.3 mg PO TID Eliquis 5 mg Tablet 2.5 mg PO BID isosorbide mononitrate 120 mg tablet extended release 24 hr 120 mg PO BID labetalol 200 mg tablet 200 mg PO Q8H hydrocodone-acetaminophen 5-325 mg tablet 1 tab PO Q6H PRN (Reason: Pain) spironolactone 100 mg tablet 100 mg PO DAILY Discharge Orders: Discharge Order (Routine); Ordered 07/29/22 Ordered By: Carroll Hercules Patient Instructions: Abdominal Hernia, Anemia, Heart Failure (DC), Hypertensive Crisis (DC), Opioid Safety Activity Restrictions/Additional Instructions: Keep your Thursday dialysis appointment Discharge Attestations Time Spent in Discharge Care*: less than 30 min Status at Discharge: Cognitive status at discharge: cognitively intact, Behavioral status at discharge: cooperative, Quality Metrics Clinical Quality Measures [ No reported AMI, CVA or VTE this stay] Coding Level of Care Code Acute Code for Chg Fwd Diagnoses ESRD on dialysis N18.6; Z99.2
--- NOTE | 2022-07-29 14:19 | PC.NURSE ---
Discharge instructions provided and discussed. Pt declined reviewing the care notes provided. No new prescriptions No new appointments needed at this time. Pt to go to his dialysis appoint tomorrow. Pt waiting in room on his ride to arrive. ( His mother).
--- NOTE | 2022-07-29 15:04 | PC.NURSE ---
Pt d/c Pt requested to wait for his ride outside. Pt did not have portable O2 to wear outside. Pt refused to wait on portable oxygen from family. Pt gathered his belongings, discharge packet and was walked to the front exit to wait on his ride without his oxygen.
== END 2022-07-29 15:04 | disposition home or self-care (01) | DRG 304 ==
LOC: ER 22:26 → ICU 07-27 04:47
PROVIDERS: Admitting Provider Hospitalist; Emergency Provider Emergency Medicine; PCP Family Medicine; Visit Provider Internal Medicine
DX: I16.0 Hypertensive urgency (principal); J18.9 Pneumonia, unspecified organism; N18.6 End stage renal disease; J96.00 Acute respiratory failure, unspecified whether with hypoxia or hypercapnia; I50.32 Chronic diastolic (congestive) heart failure; R18.8 Other ascites; J44.0 Chronic obstructive pulmonary disease with (acute) lower respiratory infection; I13.2 Hypertensive heart and chronic kidney disease with heart failure and with stage 5 chronic kidney disease, or end stage renal disease; Z99.2 Dependence on renal dialysis; I25.10 Atherosclerotic heart disease of native coronary artery without angina pectoris; Z95.5 Presence of coronary angioplasty implant and graft; Z91.128 Patient's intentional underdosing of medication regimen for other reason; Z79.02 Long term (current) use of antithrombotics/antiplatelets; Z79.82 Long term (current) use of aspirin; Z79.51 Long term (current) use of inhaled steroids; Z79.01 Long term (current) use of anticoagulants; K74.60 Unspecified cirrhosis of liver; K40.90 Unilateral inguinal hernia, without obstruction or gangrene, not specified as recurrent; K42.9 Umbilical hernia without obstruction or gangrene; D50.9 Iron deficiency anemia, unspecified; G89.29 Other chronic pain; F17.210 Nicotine dependence, cigarettes, uncomplicated; Z99.89 Dependence on other enabling machines and devices; M51.36 Other intervertebral disc degeneration, lumbar region; Z99.81 Dependence on supplemental oxygen; F41.1 Generalized anxiety disorder; F32.A Depression, unspecified; Z86.16 Personal history of COVID-19; D63.1 Anemia in chronic kidney disease; Z79.891 Long term (current) use of opiate analgesic
CPT/HCPCS: 12345; 74176; 80053; 83735; 84100; 85025; 86140; 90935; 96365; 96375; 96376; 99291; G0378; J0360; J2270; J2405; J3010; J3490; Q3014

== ENCOUNTER 2022-08-03 12:02 | Inpatient (IN) | payer MEDICARE, MEDICAID, SELFPAY ==
[2022-08-03] VITALS (45 sets, daily range): BP systolic 91–186; BP diastolic 43–117; PULSE 64–96; RESP 16–23; TEMP 36.9–37.7; O2SAT 94–100; BMI 21.6
--- NOTE | 2022-08-03 12:29 | P.HP_ITS ---
Providers/Chief Complaint Admitting Physician: Kerwin Platt MD Primary Care Provider: Mal Peres DO Chief Complaint: SOB History of Present Illness Mal Gibbs is a 41 year old male with past medical history of end-stage renal disease on maintenance hemodialysis with multiple admission in the past for hypertensive urgency, congestive heart failure, was transferred from outside hospital today. As per chart review patient was most recently in hospital and discharged on 07/29 where again he was admitted for hypoxic respiratory failure in setting of hypertensive urgency from medication noncompliance. As per chart review and conversation with physician at the hospital patient presented in [facility] today with difficulty breathing and found to be in hypertensive urgency. Patient was apparently mildly agitated hence was intubated to protect airway prior to coming. On presentation to the ICU he is on propofol of 80, nitro drip of 6 with blood pressures of 160 over 90 mmHg, sedated. Review of Systems 2 General: Reports: ROS unobtainable due to endotracheal tube Medications/Allergies Home Medications Medication Instructions Recorded Confirmed Last Taken Type umeclidinium 62.5 mcg/actuation 1 inh inhalation DAILY #30 ea 08/06/21 08/03/22 07/24/22 Rx blister powder for inhalation (Incruse Ellipta) ferric citrate 210 mg iron tablet 420 mg PO TID 11/03/21 08/03/22 07/24/22 History (Auryxia) lisinopril 40 mg tablet 40 mg PO DAILY 11/03/21 08/03/22 07/24/22 History minoxidil 2.5 mg tablet 2.5 mg PO BID 11/22/21 08/03/22 07/24/22 History nitroglycerin 0.4 mg sublingual 0.4 mg sublingual Q5M PRN Chest 12/02/21 08/03/22 07/24/22 Rx tablet Pain #30 tabs clopidogrel 75 mg tablet 75 mg PO DAILY #90 tabs 01/28/22 08/03/22 07/20/22 Rx albuterol sulfate 90 mcg/actuation 2 puff inhalation Q6H PRN 02/21/22 08/03/22 07/24/22 History aerosol inhaler Shortness Of Breath Or Wheezing amlodipine 10 mg tablet 10 mg PO BEDTIME 02/21/22 08/03/22 07/24/22 History aspirin 81 mg tablet,delayed 81 mg PO DAILY 02/21/22 08/03/22 07/20/22 History release pantoprazole 40 mg tablet,delayed 40 mg PO DAILY 02/21/22 08/03/22 07/24/22 History release DME - BIPAP #1 ea 02/25/22 07/30/22 07/22/22 Rx DME - Oxygen #1 ea 02/25/22 07/30/22 07/24/22 Rx clonazepam 0.5 mg tablet 0.5 mg PO BEDTIME #30 tabs 04/10/22 08/03/22 07/24/22 Rx cyclobenzaprine 10 mg tablet 10 mg PO Q12H PRN muscle spasm #30 04/10/22 08/03/22 07/24/22 Rx tabs quetiapine 25 mg tablet 25 mg PO DAILY #90 tabs 04/10/22 08/03/22 07/24/22 Rx hydralazine 100 mg tablet 100 mg PO TID #270 tabs 04/24/22 08/03/22 07/24/22 Rx polyethylene glycol 3350 17 gram 17 g PO DAILY 06/09/22 08/03/22 07/24/22 History oral powder packet (Miralax) hydrocodone 5 mg-acetaminophen 325 1 tab PO Q6H PRN Pain 07/01/22 08/03/22 07/24/22 History mg tablet labetalol 200 mg tablet 200 mg PO Q8H 07/01/22 08/03/22 07/24/22 History spironolactone 100 mg tablet 100 mg PO DAILY 07/01/22 08/03/22 07/24/22 History apixaban 5 mg tablet (Eliquis) 2.5 mg PO BID 07/27/22 08/03/22 Unknown History carvedilol 6.25 mg tablet 6.25 mg PO BID 07/27/22 08/03/22 Unknown History clonidine HCl 0.3 mg tablet 0.3 mg PO TID 07/27/22 08/03/22 Unknown History isosorbide mononitrate 120 mg 120 mg PO BID 07/27/22 08/03/22 Unknown History tablet,extended release 24 hr Allergies Allergy/AdvReac Type Severity Reaction Status Date / Time nifedipine Allergy ALGY-Swell Verified 07/24/22 11:16 Lip/Tongue/Throat PFSH Acute PFSH: Medical History (Updated 08/03/22 @ 16:14 by Kerwin Platt MD) Abdominal ascites history of intermittent paracentesis, transudative fluid; prior work up has included negative biopsy, ceruloplasmin level normal, low iron, high ferritin, normal TIBC, negative HIV, hepatitis panel negative, JESÚS/SCL 70/double-stranded DNA antibodies negative, Alpha-fetoprotein level unremarkable, nonalcoholic by history, has hepatomegaly and splenomegaly Anemia chronic kidney disease Anxiety Arteriovenous fistula for hemodialysis in place, secondary Atherosclerosis of coronary artery Stent and balloon angioplasty to proximal 1 OM branch Chronic abdominal pain Chronic respiratory failure on home oxygen and bipap Congestive heart failure preserved ejection fraction COPD (chronic obstructive pulmonary disease) COVID 05/25 Degenerative disc disease, lumbar Depression Epididymitis 06/2022 ESRD on dialysis Generalized anxiety disorder with panic attacks History of cardiovascular stress test 07/2022 at [facility] perfusion imaging probably normal, no reversible defects, small fixed defect in apical anterior wall, EF 54%, nonischemic response to stress by EKG criteria History of coronary angiogram 11/2021 - patent stent History of home oxygen therapy Hypertension uncontrolled Hypertensive emergency recurrent episodes Hypertensive urgency Inguinal hernia Low back pain Nicotine dependence, cigarettes, with other nicotine-induced disorders Patient under care of multiple providers Pulmonary embolism 09/21 CTA inconclusive for very tiny peripheral LEFT lower lobe pulmonary artery sub segmental emboli versus poor opacification. Pulmonary hypertension Umbilical hernia Urethral stricture Uses bilevel positive airway pressure (BPAP) ventilation at home Surgical History H/O hand surgery Amputation right 2&3 fingers 2016 History of adenoidectomy Stented coronary artery Family History (Updated 07/27/22 @ 04:56 by Anya Vargas MD) Other Hypertension Social History (Updated 07/27/22 @ 03:49 by Anya Vargas MD) Smoking and tobacco status: current every day smoker cigarettes Packs smoked per day: 1.5 Years cigarettes smoked: 21 [ Other cigarette details: started age 20, currently 0.5ppd ] Alcohol intake: never Number of children: 3 Current occupational status: disabled Physical Exam Narrative: General: Intubated, sedated, chronically sick appearing HEENT: PERRLA, pupils bilaterally equal and reactive Chest: Normal vesicular breath sounds, no added sounds, equal good air entry bilaterally CVS: S1-S2 regular, no murmurs, no tachycardia, no gallops, no rubs Abdomen: Soft, nontender, no organomegaly, bowel sounds present Neuro: Pupils bilaterally equal and reactive Data 08/03/22 14:32 08/03/22 14:32 A&P Assessment and plan (1) Respiratory failure: Most likely in setting of congestive heart failure from hypertensive emergency. Maintain saturation over 90%. Check ABG, chest x-ray. Adjust ET tube accordingly. Check MRSA swab, chest x-ray, procalcitonin, respiratory viral panel, sputum culture, blood culture, urine culture. Cannot rule out aspiration. For now start patient on vancomycin and Zosyn. Will de-escalate antibiotics as per culture results and if patient remains afebrile for next 24 hours. Trial of extubation post dialysis in a.m. tomorrow. (2) Hypertensive emergency: Most likely secondary to noncompliance. Target blood pressure less than 140/90 mmHg. For now continue home dose of amlodipine 10 mg, carvedilol 6.25 mg twice daily, clonidine 0.3 mg 3 times daily, hydralazine 100 mg 3 times daily, Imdur 120 mg twice daily, labetalol 200 mg every 8 hourly. Uptitrate as for goal blood pressures. Check urine drug screen. (3) Congestive heart failure: History of congestive heart failure with reduced ejection fraction. Last echocardiogram from March 2022 shows EF of 63% with moderate LVH and grade 3 diastolic dysfunction with mild MR. Patient will require extra session of dialysis. (4) Noncompliance: (5) ESRD on dialysis: Nephrology consulted. Plan for dialysis today. (6) Atherosclerosis of coronary artery: Continue with home dose of aspirin, Plavix. Cycle troponins Plan Anemia: Most likely in setting of iron deficiency and chronic disease from end- stage renal disease. Check iron panel, vitamin B12 and folate levels. Replace accordingly. Procrit 10,000 one time with dialysis. Start on IV iron supplementation for now. Target hemoglobin of more than 8. Will transfuse accordingly. Sedation: Propofol and fentanyl Glycemic control: Not needed. N.p.o. Nutrition: N.p.o. CODE STATUS: Full code PUD prophylaxis: Famotidine DVT prophylaxis: Eliquis 2.5 mg twice daily at home dose Discharge planning: Home with caregiver once medically stable Admit to ICU This documentation was created by [employer] operations clerk software. Every effort was made to ensure accuracy of operations clerk. Any obvious errors or omissions should be clarified with the author of the document. Attestations Medical Necessity Statement*: Admission for more than 2 midnights for management of respiratory failure in setting of hypertensive emergency leading to acute on chronic diastolic congestive heart failure in setting of end-stage renal disease on hemodialysis Coding Level of Care Code Critical Care >/= 30 minutes Critical care time (in minutes): 70 The high probability of a clinically significant, sudden or life threatening deterioration, as referenced in this documentation, required my full and direct attention, intervention and personal management. The critical care time shown is in addition to time spent performing any reported separately billable procedures and includes the following: [x] Data and vital sign review and interpretation [x ] Patient assessment, examination and intervention [x] Medication orders and management [x] Patient/Family updates as able [x] Care Coordination and Documentation. Other Coding Information This patient has a high probability of clinically significant, sudden or life threatening deterioration of the patient's (neurological/pulmonary/cardiac/renal/ID/endocrine) systems required my full, direct attention, the highest level of physician preparedness for urgent intervention and personal management. I managed/supervised life or organ supporting interventions that required frequent physician assessment. I devoted my full attention in the ICU to the direct care of this patient for the period of time indicated above. Time I spent with family or surrogate(s) is included only if the patient was incapable of providing necessary information or participating in decision making. This time includes the following services provided: Telemetry review Mechanical Ventilation Hemodynamic interpretation, assessment and management Review and interpretation of CXR Review and interpretation of lab values Review and interpretation of microbiologic data and culture results Review of medications and administration Review and interpretation of Nutrition requirements and management Discussion of management with other consultants and services Clinical update to family members Diagnoses Respiratory failure J96.90 Hypertensive emergency I16.1 Congestive heart failure I50.9 Noncompliance Z91.199 ESRD on dialysis N18.6; Z99.2 Atherosclerosis of coronary artery I25.10
[2022-08-03 13:50] LABS: ABG PCO2 50.8 mmHg (35-45); ABG PH Result 7.38 (7.35-7.45); Arterial Blood Gas Hematocrit 23.7 % (42-52); Base Excess ABG 4.4 mmol/L (-2.0-2.0); Blood Gas Allen Test Pos; Blood Gas Sample Type Arterial; HCO3 ABG 30.1 mmol/L (22-26); HGB O2 Sat 98.5 % (95-100); Ionized Calcium Level - ABG 1.2 mmol/L (1.1-1.4); Methemoglobin 0.4 % (0.4-1.5); Oxygen Saturation ABG > 100.0; Potassium Level - ABG 5.4 mmol/L (3.5-5.0); Total Hemoglobin 7.7 g/dL (14-18)
[2022-08-03 13:51] LABS: Alveolar-Arterial Oxygen Gradi 48.5 mmHg (5-10); Blood Gas Operator Identificat MONRO; Blood Gas Sample Site Brachial, right; Blood Gas Tidal Volume 0.45; Oxygen Device VENT
--- NOTE | 2022-08-03 13:52 | XRR_ITS ---
PROCEDURE INFORMATION: Exam: XR Chest Exam date and time: 08/03/2022 2:19 PM Age: 41 years old Clinical indication: Device placement; Other: Ng and et placement; Additional info: Intubated TECHNIQUE: Imaging protocol: Radiologic exam of the chest. Views: 1 view. COMPARISON: CR (CHEST, ) 07/23/2022 4:39 AM FINDINGS: Tubes, catheters and devices: Tip of the ET tube projects 3.2 cm superior to the avery. The G-tube passes below the hemidiaphragm. Distal tip of the G tube not visualized. Lungs: There are hazy infiltrates in the mid to lower right lung field. Pleural spaces: Left costophrenic angle not visualized. There is mild blunting of the right costophrenic angle suggestive of a small pleural effusion. Heart/Mediastinum: Cardiomegaly. Bones/joints: Unremarkable. XR/XR chest 1V portable [id number] IMPRESSION: 1. Tip of the ET tube projects 3.2 cm superior to the avery. 2. The G-tube passes below the hemidiaphragm. Distal tip of the G tube not visualized. 3. Cardiomegaly. 4. There are hazy infiltrates in the mid to lower right lung field. Differential includes pneumonia and/or pulmonary edema. 5. There is mild blunting of the right costophrenic angle suggestive of a small pleural effusion.
[2022-08-03] MEDS: famotidine 20 mg/2 mL INJ IVP (14:45)
[2022-08-03] MEDS: heparin 5,000 unit/mL INJ 1 mL 5000 UNIT SUBCUT (14:45)
[2022-08-03] MEDS: nitroglycerin drip 50 MG/250 ML PREMIX 6 MG (14:45)
[2022-08-03 14:55] LABS: Basophils % 0.5 %; Eosinophils # 0.1 10^3/uL (0.0-0.8); Eosinophils % 1.1 %; Hematocrit 21.5 % (42.0-52.0); Lymphocytes # 0.7 10^3/uL (0.8-4.8); Lymphocytes % 8.2 %; Mean Corpuscular HGB Conc 32.6 g/dL (30.0-36.0); Mean Corpuscular Hemoglobin 29.9 pg (28.0-34.0); Mean Corpuscular Volume 91.9 fl (80-94); Mean Platelet Volume 9.3 fL (7.4-10.4); Monocytes # 0.9 10^3/uL (0.2-0.9); Monocytes % 11.1 %; Neutrophils # 6.48 10^3/uL (1.8-7.7); Neutrophils % 78.7 %; Nucleated Red Blood Cells % 0 %; Platelet Count 237 10^3/cmm (130-400); Red Blood Count 2.34 10^6/uL (4.1-5.3); Red Cell Distribution Width 17.5 % (12.1-15.1); White Blood Count 8.2 10^3/uL (4.0-10.0)
[2022-08-03 15:42] LABS: Amphetamines Screen Urine Negative (Negative); Barbiturates Screen Urine Negative (Negative); Benzodiazepines Screen Urine Negative (Negative); Cocaine Screen Urine Negative (Negative); Opiate Screen Urine Negative (Negative); PCP Screen Urine Negative (Negative); THC Screen Urine Negative (Negative)
[2022-08-03 15:46] LABS: Urine Color Light yellow (Yellow)
[2022-08-03 15:47] LABS: Add Urine Microscopic? YES; Bilirubin Urine Neg (Negative); Blood Urine 2+ (Negative); Glucose Urine UA 2+ (Normal); Ketones Urine Negative (Negative); Leukocyte Esterase Urine Negative (Negative); Nitrate Urine Negative (Negative); Protein Urine 3+ (Negative); Specific Gravity, Urine 1.015 (1.005-1.030); Urine Appearance Clear (CLEAR); Urobilinogen Urine Norm (Negative); pH Urine 9 (5-7)
[2022-08-03 15:48] LABS: Folate Level 7.7 ng/mL (4.5-32.2)
[2022-08-03 15:49] LABS: Procalcitonin 2.24 ng/mL (0-0.5); Thyroid Stimulating Hormone 2.03 uIU/mL (0.27-4.20); Vitamin B12 221 pg/mL (232-1245)
[2022-08-03 15:50] LABS: Add Urine Culture? No; Amorphous Sediment Urine 2+ /hpf; Bacteria Urine TRACE /hpf; RBC Urine 0-4 /hpf (0-2); Squamous Epithelial Cell Urine 0-4 /hpf (0-5); Sulfosalicylic Acid Urine Positive (Negative); WBC Urine 0-4 /hpf (0-5)
[2022-08-03 16:00] LABS: Alanine Aminotransferase 7 U/L (0-41); Albumin Level 3.5 g/dL (3.5-5.2); Alkaline Phosphatase 103 U/L (40-130); Anion Gap 18.6 (5-19); Aspartate Amino Transferase 10 U/L (0-40); Blood Urea Nitrogen 43 mg/dL (6-20); Calcium 8.5 mg/dL (8.5-10.5); Carbon Dioxide 27 mmol/L (22-29); Chloride 89 mmol/L (98-107); Globulin 2.9 g/dL (1.3-4.6); Glomerular Filtration Rate 8.3 mL/min (90-130); Glucose 45 mg/dL (65-115); Iron 17 ug/dL (59-158); Osmolality Calculated 276 mOsm/kg (285-295); Percent Saturation 9.3 % (20-50); Potassium 5.6 mmol/L (3.5-5.1); Sodium 129 mmol/L (136-145); Total Bilirubin 0.5 mg/dL (0.15-1.2); Total Iron Binding Capacity 181 mcg/dl; Total Protein 6.4 g/dL (6.6-8.7); Unsaturated Iron Binding 164 ug/dL (112-347)
[2022-08-03] MEDS: propofol 1,000 MG/100 ML INJ 26.8 MG IV ×2 (16:29→19:29)
[2022-08-03] MEDS: epoetin alfa 10,000 unit/mL INJ 10000 UNIT SUBCUT (16:42)
[2022-08-03] MEDS: cyanocobalamin 1,000 mcg/mL SDV 1000 MCG IM (16:43)
[2022-08-03] MEDS: iron sucrose 200 MG in sodium chloride 0.9% (100 ml) 100 ML 220 MG IV (16:56)
[2022-08-03 17:07] LABS: Adenovirus Not Detected (NOT DETECT); Chlamydia Pneumoniae Not Detected (NOT DETECT); Coronavirus 229E,HKU1,NL63,OC4 Not Detected (NOT DETECT); Human Metapneumovirus Not Detected (NOT DETECT); Human Rhinovirus/Enterovirus Not Detected (NOT DETECT); Influenza A Not Detected (NOT DETECT); Influenza A H1 Not Detected (NOT DETECT); Influenza A H1-2009 Not Detected (NOT DETECT); Influenza A H3 Not Detected (NOT DETECT); Influenza B Not Detected (NOT DETECT); Mycoplasma Pneumoniae Not Detected (NOT DETECT); Parainfluenza Virus Type 1 Not Detected (NOT DETECT); Parainfluenza Virus Type 2 Not Detected (NOT DETECT); Parainfluenza Virus Type 3 Not Detected (NOT DETECT); Parainfluenza Virus Type 4 Not Detected (NOT DETECT); Respiratory Syncytial Virus A Not Detected (NOT DETECT); Respiratory Syncytial Virus B Not Detected (NOT DETECT); SARS-COV-2 Not Detected (NOT DETECT)
--- NOTE | 2022-08-03 17:13 | ECG_ITS ---
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: : [id number] Requested By: Kerwin Platt Order Number: [id number] Reading MD: Nilay Jackson Measurements Intervals [place] Rate: 94 P: 59 HI: 160 QRS: 64 QRSD: 113 T: 80 QT: 408 QTc: 511 Interpretive Statements SINUS RHYTHM POSSIBLE LEFT VENTRICULAR HYPERTROPHY [VOLTAGE CRITERIA PLUS LAE OR QRS WIDENING] NONSPECIFIC ST & T-WAVE ABNORMALITY WARNING: DATA QUALITY MAY AFFECT INTERPRETATION Compared to ECG 07/23/2022 04:35:15 No significant changes Electronically Signed On 08-03-2022 18:51:43 CDT by Nilay Jackson [id number]
[2022-08-03] MEDS: carvedilol 6.25 mg Tablet PO (17:20)
[2022-08-03] MEDS: labetalol 200 mg Tablet PO (17:20)
[2022-08-03] MEDS: apixaban 5 mg Tablet 2.5 MG PO (17:21)
--- NOTE | 2022-08-03 17:26 | P.CONIM_ITS ---
Providers/Reason For Consult Consulting Physician/Specialty*: kommana/Nephrology Reason for Consult*: ESRD Attending Physician: Kerwin Platt MD Primary Care Provider: Mal Peres DO History of Present Illness History of Present Illness Mal Gibbs is a 41 year old male with past medical history of end-stage renal disease on dialysis, hypertensive urgency, congestive cardiac failure, who was recently discharged from the hospital on 328 when he was admitted for h ypoxic respiratory failure and underwent dialysis. Patient has history of medication and dialysis noncompliance. Patient presented to an outlying facility with shortness of breath and was hypoxic and intubated and transferred here. Also noted to have hypertensive emergency with a blood pressures more than 200s and he was started on nitro drip. He is currently off nitro drip. He is currently intubated and sedated Review of Systems Narrative: cannot obtain Medications/Allergies Home Medications Medication Instructions Recorded Confirmed Last Taken Type umeclidinium 62.5 mcg/actuation 1 inh inhalation DAILY #30 ea 08/06/21 08/03/22 07/24/22 Rx blister powder for inhalation (Incruse Ellipta) ferric citrate 210 mg iron tablet 420 mg PO TID 11/03/21 08/03/22 07/24/22 History (Auryxia) lisinopril 40 mg tablet 40 mg PO DAILY 11/03/21 08/03/22 07/24/22 History minoxidil 2.5 mg tablet 2.5 mg PO BID 11/22/21 08/03/22 07/24/22 History nitroglycerin 0.4 mg sublingual 0.4 mg sublingual Q5M PRN Chest 12/02/21 08/03/22 07/24/22 Rx tablet Pain #30 tabs clopidogrel 75 mg tablet 75 mg PO DAILY #90 tabs 01/28/22 08/03/22 07/20/22 Rx albuterol sulfate 90 mcg/actuation 2 puff inhalation Q6H PRN 02/21/22 08/03/22 07/24/22 History aerosol inhaler Shortness Of Breath Or Wheezing amlodipine 10 mg tablet 10 mg PO BEDTIME 02/21/22 08/03/22 07/24/22 History aspirin 81 mg tablet,delayed 81 mg PO DAILY 02/21/22 08/03/22 07/20/22 History release pantoprazole 40 mg tablet,delayed 40 mg PO DAILY 02/21/22 08/03/22 07/24/22 History release DME - BIPAP #1 ea 02/25/22 07/30/22 07/22/22 Rx DME - Oxygen #1 ea 02/25/22 07/30/22 07/24/22 Rx clonazepam 0.5 mg tablet 0.5 mg PO BEDTIME #30 tabs 04/10/22 08/03/22 07/24/22 Rx cyclobenzaprine 10 mg tablet 10 mg PO Q12H PRN muscle spasm #30 04/10/22 08/03/22 07/24/22 Rx tabs quetiapine 25 mg tablet 25 mg PO DAILY #90 tabs 04/10/22 08/03/22 07/24/22 Rx hydralazine 100 mg tablet 100 mg PO TID #270 tabs 04/24/22 08/03/22 07/24/22 Rx polyethylene glycol 3350 17 gram 17 g PO DAILY 06/09/22 08/03/22 07/24/22 Hi story oral powder packet (Miralax) hydrocodone 5 mg-acetaminophen 325 1 tab PO Q6H PRN Pain 07/01/22 08/03/22 07/24/22 History mg tablet labetalol 200 mg tablet 200 mg PO Q8H 07/01/22 08/03/22 07/24/22 History spironolactone 100 mg tablet 100 mg PO DAILY 07/01/22 08/03/22 07/24/22 History apixaban 5 mg tablet (Eliquis) 2.5 mg PO BID 07/27/22 08/03/22 Unknown History carvedilol 6.25 mg tablet 6.25 mg PO BID 07/27/22 08/03/22 Unknown History clonidine HCl 0.3 mg tablet 0.3 mg PO TID 07/27/22 08/03/22 Unknown History isosorbide mononitrate 120 mg 120 mg PO BID 07/27/22 08/03/22 Unknown History tablet,extended release 24 hr Allergies Allergy/AdvReac Type Severity Reaction Status Date / Time nifedipine Allergy ALGY-Swell Verified 07/24/22 11:16 Lip/Tongue/Throat Current Medications Generic Name Dose Route Start Last Admin Trade Name Freq PRN Reason Stop Dose Admin Apixaban 2.5 mg 08/03/22 18:00 08/03/22 17:21 Apixaban 5 Mg Tablet PO 2.5 mg BID ARTEM Administration Carvedilol 6.25 mg 08/03/22 18:00 08/03/22 17:20 Carvedilol 6.25 Mg Tablet PO 6.25 mg BID ARTEM Administration Cyanocobalamin 1,000 mcg 08/03/22 17:00 08/03/22 16:43 Cyanocobalamin 1,000 Mcg/Ml Sdv IM 1,000 mcg DAILY ARTEM Administration Famotidine 20 mg 08/03/22 14:00 08/03/22 14:45 Famotidine 20 Mg/2 Ml Inj IVP 20 mg Q12H ARTEM Administration Propofol 1,000 mg in 100 mls @ 0 mls/hr 08/03/22 14:00 08/03/22 16:29 Diprivan IV 60 mcg/kg/min .Q0M ARTEM 26.8 mls/hr Administration Protocol Per Protocol Iron Sucrose 200 mg/ Sodium 110 mls @ 220 mls/hr 08/03/22 17:00 08/03/22 16:56 Chloride IV 08/07/22 17:29 220 mls/hr Q24H ARTEM Administration Labetalol HCl 200 mg 08/03/22 16:15 08/03/22 17:20 Labetalol 200 Mg Tablet PO 200 mg Q8H ARTEM Administration PFSH Acute PFSH: Medical History (Updated 08/03/22 @ 16:14 by Kerwin Platt MD) Abdominal ascites history of intermittent paracentesis, transudative fluid; prior work up has included negative biopsy, ceruloplasmin level normal, low iron, high ferritin, normal TIBC, negative HIV, hepatitis panel negative, JESÚS/SCL 70/esequiel ble-stranded DNA antibodies negative, Alpha-fetoprotein level unremarkable, nonalcoholic by history, has hepatomegaly and splenomegaly Anemia chronic kidney disease Anxiety Arteriovenous fistula for hemodialysis in place, secondary Atherosclerosis of coronary artery Stent and balloon angioplasty to proximal 1 OM branch Chronic abdominal pain Chronic respiratory failure on home oxygen and bipap Congestive heart failure preserved ejection fraction COPD (chronic obstructive pulmonary disease) COVID 05/25 Degenerative disc disease, lumbar Depression Epididymitis 06/2022 ESRD on dialysis Generalized anxiety disorder with panic attacks History of cardiovascular stress test 07/2022 at [facility] perfusion imaging probably normal, no reversible defects, small fixed defect in apical anterior wall, EF 54%, nonischemic response to stress by EKG criteria History of coronary angiogram 11/2021 - patent stent History of home oxygen therapy Hypertension uncontrolled Hypertensive emergency recurrent episodes Hypertensive urgency Inguinal hernia Low back pain Nicotine dependence, cigarettes, with other nicotine-induced disorders Patient under care of multiple providers Pulmonary embolism 09/21 CTA inconclusive for very tiny peripheral LEFT lower lobe pulmonary artery sub segmental emboli versus poor opacification. Pulmonary hypertension Umbilical hernia Urethral stricture Uses bilevel positive airway pressure (BPAP) ventilation at home Surgical History H/O hand surgery Amputation right 2&3 fingers 2016 History of adenoidectomy Stented coronary artery Family History (Updated 07/27/22 @ 04:56 by Anya Vargas MD) Other Hypertension Social History (Updated 07/27/22 @ 03:49 by Anya Vargas MD) Smoking and tobacco status: current every day smoker cigarettes Packs smoked per day: 1.5 Years cigarettes smoked: 21 [ Other cigarette details: started age 20, currently 0.5ppd ] Alcohol intake: never Number of children: 3 Current occupational status: disabled Vitals/I&O/Wt Last Vital Signs Pulse 84 08/03/22 15:30 Resp 17 08/03/22 16:53 BP 168/106 08/03/22 15:30 Pulse Ox 99 08/03/22 16:53 O2 Del Method 08/03/22 13:30 FiO2 50 08/03/22 16:53 Weight last 48 hrs Weight 74.446 kg Physical Exam Narrative: Patient is intubated, sedated 40% FiO2 Data 08/03/22 14:32 08/03/22 14:32 Micro: Microbiology 08/03/22 14:32 Blood Culture - Preliminary Blood SPECIMEN COLLECTED 08/03/22 14:39 Blood Culture - Preliminary Blood SPECIMEN COLLECTED A&P Assessment and plan (1) ESRD on dialysis: Plan End-stage renal disease: On dialysis per [facility] schedule as outpatient, now has volume overload, plan for HD today Hypertensive emergency: Status post nitro drip, restarted all home medications History of CHF History of coronary artery disease Anemia: We will order Epogen Patient evaluated using audiovisual cart. Time spent 45 minutes Consult Attestations Medical Necessity Statement: see above Coding Level of Care Code Acute Code for Chg Fwd Diagnoses ESRD on dialysis N18.6; Z99.2
[2022-08-03 17:28] LABS: Troponin(5th) Baseline 162 ng/L (0-15)
--- NOTE | 2022-08-03 18:11 | PC.NURSE ---
recieved to room 12 intubated placed on vent called for dialysis tropinin and cr elevated done in and out cath small amt urine out spec to lab .. sedated on diprivan gtt at this time
--- NOTE | 2022-08-03 18:22 | ECG_ITS ---
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: : 1980 Requested By: Kerwin Platt Order Number: [id number] Reading MD: Nilay Jackson Measurements Intervals [place] Rate: 81 P: 66 AL: 177 QRS: 63 QRSD: 117 T: 82 QT: 428 QTc: 499 Interpretive Statements SINUS RHYTHM POSSIBLE LEFT VENTRICULAR HYPERTROPHY [VOLTAGE CRITERIA PLUS LAE OR QRS WIDENING] NONSPECIFIC ST & T-WAVE ABNORMALITY PROLONGED QT INTERVAL Compared to ECG 08/03/2022 17:13:10 Prolonged QT interval now present T-wave abnormality still present Electronically Signed On 08-03-2022 19:03:20 CDT by Nilay Jackson [id number]
[2022-08-03] MEDS: albumin 12.5 GM/50 ML VIAL IV (19:29)
[2022-08-03 20:05] LABS: Troponin 5 2HR 160.8 ng/L (0-15); Troponin 5 2HR Delta -1.2 ABS# (0-10)
--- NOTE | 2022-08-03 20:11 | ECG_ITS ---
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 Measurements Intervals [place] Rate: 70 P: 12 VT: 176 QRS: 60 QRSD: 109 T: 93 QT: 489 QTc: 528 Interpretive Statements SINUS RHYTHM POSSIBLE LEFT VENTRICULAR HYPERTROPHY [VOLTAGE CRITERIA PLUS LAE OR QRS WIDENING] NONSPECIFIC ST & T-WAVE ABNORMALITY PROLONGED QT INTERVAL Compared to ECG 08/03/2022 18:22:55 No significant changes Electronically Signed On 08-04-2022 13:09:04 CDT by Brijesh King M.D. [id number]
[2022-08-03] MEDS: vancomycin 750 MG in sodium chloride 0.9% 250 ML 250 MG IV (20:26)
[2022-08-03] MEDS: piperacillin-tazobactam 3.375 GM in sodium chloride 0.9% (plus) 50 ML IV (22:47)
--- NOTE | 2022-08-03 23:13 | PC.NURSE ---
Patient trended hypotensive with a map in the upper 50s during dialysis. Dialysis nurse returned fluids and albumin was administered. Patient responded well. BP remained in low 140s systolic and Dr. Amin agreed that we should hold oral BP meds tonight as this patient typically runs closer to 200 systolic.
[2022-08-03 23:19] LABS: Glucose Point of Care 76 mg/dL (70-110)
[2022-08-03 23:24] LABS: Troponin 5 6HR 153.6 ng/L (0-15)
[2022-08-03 23:27] LABS: Troponin 5 6HR Delta -8.4 ng/L (0-12)
[2022-08-04] VITALS (95 sets, daily range): BP systolic 133–183; BP diastolic 78–128; PULSE 65–96; RESP 15–19; TEMP 36.6–36.9; O2SAT 84–100
[2022-08-04] MEDS: famotidine 20 mg/2 mL INJ IVP ×2 (02:02→14:08)
[2022-08-04] MEDS: propofol 1,000 MG/100 ML INJ 29.03 MG IV (02:09)
--- NOTE | 2022-08-04 02:14 | PC.NURSE ---
Patient was found sitting up in bed with Vent disconnected from ET tube. Propofol was titrated back up with patient still agitated. Fentanyl was started to help with pain control as well. Patient now sedated well but arousable.
[2022-08-04 03:05] LABS: Basophils # 0.1 10^3/uL (0.0-0.1); Basophils % 0.9 %; Eosinophils # 0.3 10^3/uL (0.0-0.8); Eosinophils % 4.1 %; Hematocrit 21.5 % (42.0-52.0); Lymphocytes # 0.7 10^3/uL (0.8-4.8); Mean Corpuscular HGB Conc 30.2 g/dL (30.0-36.0); Mean Corpuscular Hemoglobin 28.6 pg (28.0-34.0); Mean Corpuscular Volume 94.7 fl (80-94); Mean Platelet Volume 9.6 fL (7.4-10.4); Monocytes # 0.7 10^3/uL (0.2-0.9); Monocytes % 11.1 %; Neutrophils # 4.62 10^3/uL (1.8-7.7); Neutrophils % 72.4 %; Nucleated Red Blood Cells % 0 %; Platelet Count 284 10^3/cmm (130-400); Red Blood Count 2.27 10^6/uL (4.1-5.3); Red Cell Distribution Width 17.6 % (12.1-15.1); White Blood Count 6.4 10^3/uL (4.0-10.0)
[2022-08-04 03:19] LABS: Hemoglobin 6.5 g/dL (11.7-16.6)
[2022-08-04 03:26] LABS: Chol HDL Ratio 3.16 mg/dL (1.0-5.00); Cholesterol 101 mg/dL (0-200); HDL Cholesterol 32 mg/dL (60-100); LDL Cholesterol Calculated 53 mg/dL (50-129); LDL HDL Ratio 1.66 RATIO (0.00-3.22); Triglycerides 78 mg/dL (0-150)
[2022-08-04 03:28] LABS: Alanine Aminotransferase 6 U/L (0-41); Albumin Level 3.2 g/dL (3.5-5.2); Alkaline Phosphatase 89 U/L (40-130); Anion Gap 15.7 (5-19); Aspartate Amino Transferase 10 U/L (0-40); Blood Urea Nitrogen 22 mg/dL (6-20); Calcium 8.9 mg/dL (8.5-10.5); Carbon Dioxide 26 mmol/L (22-29); Chloride 93 mmol/L (98-107); Globulin 2.5 g/dL (1.3-4.6); Glomerular Filtration Rate 15.9 mL/min (90-130); Glucose 59 mg/dL (65-115); Magnesium 1.9 mg/dL (1.7-2.3); Osmolality Calculated 271 mOsm/kg (285-295); Phosphorus 5.2 mg/dL (2.5-4.5); Potassium 4.7 mmol/L (3.5-5.1); Sodium 130 mmol/L (136-145); Total Bilirubin 0.9 mg/dL (0.15-1.2); Total Protein 5.7 g/dL (6.6-8.7)
[2022-08-04] MEDS: propofol 1,000 MG/100 ML INJ 33.5 MG IV ×2 (04:11→06:26)
[2022-08-04 04:18] LABS: Estmated Average Glucose 68
[2022-08-04] MEDS: carvedilol 6.25 mg Tablet PO (08:25)
[2022-08-04] MEDS: hyDRALAzine 50 mg Tablet 100 MG PO ×3 (08:25→20:23)
[2022-08-04] MEDS: piperacillin-tazobactam 3.375 GM in sodium chloride 0.9% (plus) 50 ML IV ×2 (08:25→20:23)
[2022-08-04] MEDS: clopidogrel 75 mg Tablet PO (08:25)
[2022-08-04] MEDS: aspirin 81 mg EC Tablet PO (08:26)
[2022-08-04] MEDS: cyanocobalamin 1,000 mcg/mL SDV 1000 MCG IM (08:26)
[2022-08-04] MEDS: apixaban 5 mg Tablet 2.5 MG PO ×2 (08:26→17:50)
[2022-08-04] MEDS: labetalol 200 mg Tablet PO ×2 (08:28→15:04)
--- NOTE | 2022-08-04 08:57 | PM.PN ---
Subjective Subjective: Remains on vent, status post HD at yesterday with 3.5 L ultrafiltration Medications: Reviewed: Yes Vitals/I&O/Wt Last Vital Signs Temp 98.4 F 08/04/22 06:45 Pulse 66 08/04/22 06:45 Resp 16 08/04/22 07:43 BP 154/98 08/04/22 06:45 Pulse Ox 96 08/04/22 07:43 O2 Del Method 08/03/22 17:34 FiO2 35 08/04/22 07:43 08/03/22 08/04/22 08/04/22 22:59 06:59 14:59 Intake Total 272.235 / 272.235 243.428 / 515.663 Balance 272.235 / 272.235 243.428 / 515.663 Weight last 48 hrs Weight 74.446 kg Physical Exam Narrative: Patient is intubated, sedated 40% FiO2 Data 08/04/22 02:52 08/04/22 02:52 Micro: Microbiology 08/03/22 13:40 Gram Stain - Final Sputum - Endotracheal Tube Aspirate 08/03/22 14:32 Blood Culture - Preliminary Blood SPECIMEN COLLECTED 08/03/22 14:39 Blood Culture - Preliminary Blood SPECIMEN COLLECTED A&P Assessment and plan (1) ESRD on dialysis: Plan End-stage renal disease: On dialysis per [facility] schedule as outpatient, now has volume overload, status post HD yesterday with 3.5 L ultrafiltration. Noted plans for extubation today, if patient fails extubation we will plan on repeat dialysis today , Hypertensive emergency: Status post nitro drip, restarted all home medications History of CHF History of coronary artery disease Anemia: We will order Epogen Patient evaluated using audiovisual cart. Time spent 45 minutes Attestations Medical Necessity Statement*: Admission for more than 2 midnights for management of respiratory failure in setting of hypertensive emergency leading to acute on chronic diastolic congestive heart failure in setting of end-stage renal disease on hemodialysis Coding Level of Care Code Acute Code for Chg Fwd Diagnoses ESRD on dialysis N18.6; Z99.2
[2022-08-04] MEDS: cloNIDine 0.3 mg/24 hr Patch 1 PATCH TRANSDERMA (09:48)
[2022-08-04] MEDS: epoetin alfa 1000 Unit/0.05 mL (ESRD) 20000 UNIT SUBCUT (09:48)
--- NOTE | 2022-08-04 14:46 | PC.NURSE ---
Patient extubated earlier in shift per RT
--- NOTE | 2022-08-04 14:55 | PC.HD ---
Pt sedated and on vent.NTG gtt titrating for BP control per A/C TECH. Pt hypertensive,through most of treatment, but BP started trending down appx 40 minutes from end of treatment. NTG gtt off per A/C TECH, Machine temp decreased. However BP continued dropping to 95/43, and pulse also came down from 90 to 68 so Propofol titrating down per A/C TECH. BP still not rebounding and near treatment end time it dipped as low as 79/37 and blood was returned with additional 100ml NS given. BP up to 95/43 but stayed in that range, very low for this patient, so albumin 25% 50ml given and flushed through with additional 100ml NS. BP trending up so circuits disconnected and needles removed intact, pressure held to hemostasis, and dressings applied. By then (55 minutes post tx end) BP 134/78. Pt remains ventilated and sedated.
--- NOTE | 2022-08-04 17:03 | USCV_ITS ---
Mal Gibbs Age: 41 Gender: M : 1980 Exam Date: 08/04/2022 18:13 Ordering Phys: Kerwin Platt MD Technologist: SUSIE Exam Location: [facility] [place] Indication: renal failure Aortic Velocity @ SMA (cm/s) RIGHT KIDNEY LEFT KIDNEY 64.7 Kidney Length (mm) 54.0 FINDINGS Comparison: 09/06/21 Small atrophic kidneys with little vascularity identified as before. Right kidney 6.5 cm. Left kidney 5.7 cm. Small amount of ascites. Minimal urine in the bladder. CONCLUSIONS detention dialysis patient with known atrophic kidneys. Little vascularity to either kidney seen as on the prior exam from 09-06. Dr. Judie Peter DO (Electronically Signed) Final Date: 05 August 2022 07:38 S
--- NOTE | 2022-08-04 17:47 | P.PN_ITS ---
Subjective Subjective: Seen multiple times today. Extubated to nasal cannula. Patient is awake and alert but slightly drowsy. Got dialysis yesterday. Overnight has remained hemodynamically stable and afebrile. Blood pressures again creeping up. Antihypertensives added. Medications: Reviewed: Yes Vitals/I&O/Wt Last Vital Signs Temp 98.4 F 08/04/22 06:45 Pulse 74 08/04/22 13:30 Resp 16 08/04/22 07:43 BP 133/81 08/04/22 13:30 Pulse Ox 96 08/04/22 13:30 O2 Del Method 08/03/22 17:34 FiO2 35 08/04/22 07:43 08/04/22 08/04/22 08/04/22 06:59 14:59 22:59 Intake Total 243.428 / 1215.663 Balance 243.428 / -2855.337 Weight last 48 hrs Weight 71.3 kg Weight 74.446 kg Physical Exam Narrative: General: No acute distress, chronically sick appearing, slightly drowsy but waking up to verbal stimulus HEENT: PERRLA, pupils bilaterally equal and reactive Chest: Normal vesicular breath sounds, no added sounds, equal good air entry bilaterally CVS: S1-S2 regular, no murmurs, no tachycardia, no gallops, no rubs Abdomen: Soft, nontender, no organomegaly, bowel sounds present Neuro: Pupils bilaterally equal and reactive Data 08/04/22 02:52 08/04/22 02:52 Micro: Microbiology 08/03/22 14:05 MRSA Culture - Final Nose 08/03/22 14:32 Blood Culture - Preliminary Blood NEGATIVE TO DATE 08/03/22 14:39 Blood Culture - Preliminary Blood NEGATIVE TO DATE 08/03/22 13:40 Gram Stain - Final Sputum - Endotracheal Tube Aspirate Sputum Culture - Preliminary A&P Assessment and plan (1) Respiratory failure: Most likely in setting of congestive heart failure from hypertensive emergency. Extubated on 08/04. Maintain saturation over 90%. MRSA swab, respiratory viral panel negative. Sputum culture pending. Follow-up blood culture, urine culture. High concerns for aspiration. For now continue with vancomycin and Zosyn. Will de-escalate antibiotics if patient remains afebrile and likely stable for next 24 hours. Out of bed to chair. PT/OT/speech evaluation tomorrow. N.p.o. for now. (2) Hypertensive emergency: Most likely secondary to noncompliance. Target blood pressure less than 140/90 mmHg. On multiple antihypertensives at the maximum dose at home. Cannot rule out secondary hypertension. Check renal ultrasound with Doppler. For now continue home dose of amlodipine 10 mg, clonidine 0.3 mg patch, hydralazine 100 mg 3 times daily, Imdur 120 mg twice daily, labetalol 200 mg twice daily, minoxidil 2.5 mg twice daily. Add doxazosin 2 mg. (3) Congestive heart failure: History of congestive heart failure with preserved ejection fraction. Last echocardiogram from March 2022 shows EF of 63% with moderate LVH and grade 3 diastolic dysfunction with mild MR. Most likely in setting of hypertensive urgency (4) Noncompliance: (5) ESRD on dialysis: Nephrology consulted. Plan for dialysis today. (6) Atherosclerosis of coronary artery: Continue with home dose of aspirin, Plavix. Cycle troponins high but trending down. No active chest pain. Plan Anemia: Most likely in setting of iron deficiency and chronic disease from end- stage renal disease. Iron deficiency and vitamin B12 deficiency. Continue with IV iron 200 mg dative finish a 5-day course. Start on cyanocobalamin 1000 units IM daily. Received Procrit on 08/03 with dialysis. Target hemoglobin over 8. Transfuse monitor PRBC. Glycemic control: Not needed. Nutrition: N.p.o. for now. Speech evaluation in a.m. CODE STATUS: Full code PUD prophylaxis: Famotidine DVT prophylaxis: Eliquis 2.5 mg twice daily at home dose Discharge planning: Home with caregiver once medically stable Continue care at ICU. This documentation was created by [employer] plant physiology teacher software. Every effort was made to ensure accuracy of plant physiology teacher. Any obvious errors or omissions should be clarified with the author of the document. Attestations Medical Necessity Statement*: Requires further hospitalization for postextubation care and the patient with flash pulmonary edema in setting of hypertensive urgency, diastolic congestive heart failure, incisional disease on hemodialysis, uncontrolled hypertension Coding Level of Care Code Critical Care >/= 30 minutes Critical care time (in minutes): 90 The high probability of a clinically significant, sudden or life threatening deterioration, as referenced in this documentation, required my full and direct attention, intervention and personal management. The critical care time shown is in addition to time spent performing any reported separately billable procedures and includes the following: [x] Data and vital sign review and interpretation [x ] Patient assessment, examination and intervention [x] Medication orders and management [x] Patient/Family updates as able [x] Care Coordination and Documentation. Other Coding Information This patient has a high probability of clinically significant, sudden or life threatening deterioration of the patient's (neurological/pulmonary/cardiac/renal/ID/endocrine) systems required my full, direct attention, the highest level of physician preparedness for urgent intervention and personal management. I managed/supervised life or organ supporting interventions that required frequent physician assessment. I devoted my full attention in the ICU to the direct care of this patient for the period of time indicated above. Time I spent with family or surrogate(s) is included only if the patient was incapable of providing necessary information or participating in decision making. This time includes the following services provided: Telemetry review Mechanical Ventilation Hemodynamic interpretation, assessment and management Review and interpretation of CXR Review and interpretation of lab values Review and interpretation of microbiologic data and culture results Review of medications and administration Review and interpretation of Nutrition requirements and management Discussion of management with other consultants and services Clinical update to family members Diagnoses Respiratory failure J96.90 Hypertensive emergency I16.1 Congestive heart failure I50.9 Noncompliance Z91.199 ESRD on dialysis N18.6; Z99.2 Atherosclerosis of coronary artery I25.10
[2022-08-04] MEDS: isosorbide mononitrate ER 60 mg Tablet 120 MG PO (17:50)
[2022-08-04] MEDS: minoxidil 10 mg Tablet 2.5 MG PO (17:51)
[2022-08-04] MEDS: doxazosin 4 mg Tablet 2 MG PO (17:51)
[2022-08-04] MEDS: iron sucrose 200 MG in sodium chloride 0.9% (100 ml) 100 ML 220 MG IV (17:52)
[2022-08-04] MEDS: amlodipine 10 mg Tablet PO (20:23)
[2022-08-04] MEDS: morphine 4 mg/mL SDV 1 mL 2 MG IVP (20:24)
[2022-08-04] MEDS: vancomycin 750 MG in sodium chloride 0.9% 250 ML 250 MG IV (20:24)
[2022-08-05] VITALS (53 sets, daily range): BP systolic 102–171; BP diastolic 43–98; PULSE 64–103; RESP 12–23; TEMP 36.7–37.1; O2SAT 91–100; BMI 20.7
[2022-08-05] MEDS: morphine 4 mg/mL SDV 1 mL 2 MG IVP ×4 (00:33→23:56)
[2022-08-05] MEDS: labetalol 200 mg Tablet PO ×2 (00:33→08:10)
--- NOTE | 2022-08-05 01:02 | PC.NURSE ---
Addendum entered by ARIK Richards 08/05/22 01:16: Verified waste of fentanyl and propofol by this nurse Original Note: Witnessed Waste: Fentanyl- concentration 1000mg/100mL. Wasted 40mL of Fentanyl with JAGUAR Lieberman Propofol- concentration 1000mg/100mL. Wasted 50mL of Propofol with JAGURA Lieberman Wasted and disposed into sharps container per facility guidelines.
[2022-08-05] MEDS: famotidine 20 mg/2 mL INJ IVP ×2 (01:11→15:29)
[2022-08-05 04:42] LABS: Basophils # 0.1 10^3/uL (0.0-0.1); Basophils % 1.1 %; Eosinophils # 0.6 10^3/uL (0.0-0.8); Eosinophils % 10.4 %; Hematocrit 23.1 % (42.0-52.0); Hemoglobin 7.4 g/dL (11.7-16.6); Lymphocytes # 0.7 10^3/uL (0.8-4.8); Mean Corpuscular Hemoglobin 30.1 pg (28.0-34.0); Mean Corpuscular Volume 93.9 fl (80-94); Mean Platelet Volume 9.5 fL (7.4-10.4); Monocytes # 0.7 10^3/uL (0.2-0.9); Neutrophils # 3.61 10^3/uL (1.8-7.7); Neutrophils % 64.3 %; Nucleated Red Blood Cells % 0 %; Platelet Count 237 10^3/cmm (130-400); Red Blood Count 2.46 10^6/uL (4.1-5.3); Red Cell Distribution Width 17.9 % (12.1-15.1); White Blood Count 5.6 10^3/uL (4.0-10.0)
[2022-08-05 05:02] LABS: Alanine Aminotransferase 7 U/L (0-41); Albumin Level 3.2 g/dL (3.5-5.2); Alkaline Phosphatase 71 U/L (40-130); Anion Gap 21.1 (5-19); Aspartate Amino Transferase 9 U/L (0-40); Blood Urea Nitrogen 40 mg/dL (6-20); Calcium 8.8 mg/dL (8.5-10.5); Carbon Dioxide 24 mmol/L (22-29); Chloride 91 mmol/L (98-107); Globulin 3.2 g/dL (1.3-4.6); Glomerular Filtration Rate 9.3 mL/min (90-130); Glucose 59 mg/dL (65-115); Osmolality Calculated 280 mOsm/kg (285-295); Potassium 5.1 mmol/L (3.5-5.1); Sodium 131 mmol/L (136-145); Total Protein 6.4 g/dL (6.6-8.7)
[2022-08-05] MEDS: ondansetron 2 mg/ML SDV 2 mL 4 MG IVP (06:12)
[2022-08-05] MEDS: doxazosin 4 mg Tablet 2 MG PO (08:05)
[2022-08-05] MEDS: apixaban 5 mg Tablet 2.5 MG PO ×2 (08:05→17:37)
[2022-08-05] MEDS: isosorbide mononitrate ER 60 mg Tablet 120 MG PO (08:06)
[2022-08-05] MEDS: minoxidil 10 mg Tablet 2.5 MG PO ×2 (08:06→20:43)
[2022-08-05] MEDS: clopidogrel 75 mg Tablet PO (08:07)
[2022-08-05] MEDS: hyDRALAzine 50 mg Tablet 100 MG PO ×2 (08:07→20:45)
[2022-08-05] MEDS: aspirin 81 mg EC Tablet PO (08:07)
[2022-08-05] MEDS: piperacillin-tazobactam 3.375 GM in sodium chloride 0.9% (plus) 50 ML IV (08:08)
[2022-08-05] MEDS: cyanocobalamin 1,000 mcg/mL SDV 1000 MCG IM (08:08)
--- NOTE | 2022-08-05 09:43 | P.PN_ITS ---
Subjective Subjective: Patient extubated on 3 L FiO2 Medications: Reviewed: Yes Vitals/I&O/Wt Last Vital Signs Temp 98.6 F 08/05/22 04:00 Pulse 71 08/05/22 09:00 Resp 17 08/05/22 09:00 BP 117/54 08/05/22 09:00 Pulse Ox 97 08/05/22 09:00 O2 Del Method 08/05/22 09:00 O2 Flow Rate 3 08/05/22 09:00 FiO2 35 08/04/22 07:43 08/04/22 08/05/22 08/05/22 22:59 06:59 14:59 Intake Total 460 / 510 250 / 760 Output Total 0 / 0 Balance 460 / 510 250 / 760 Weight last 48 hrs Weight 71.384 kg Weight 71.3 kg Weight 74.446 kg Physical Exam Narrative: Awake alert, no acute distress Data 08/05/22 04:17 08/05/22 04:17 Micro: Microbiology 08/03/22 14:05 MRSA Culture - Final Nose 08/03/22 14:32 Blood Culture - Preliminary Blood NEGATIVE TO DATE 08/03/22 14:39 Blood Culture - Preliminary Blood NEGATIVE TO DATE 08/03/22 13:40 Gram Stain - Final Sputum - Endotracheal Tube Aspirate Sputum Culture - Preliminary A&P Assessment and plan (1) ESRD on dialysis: Plan End-stage renal disease: On dialysis per [facility] schedule as outpatient, now has volume overload, status post HD on Thursday with 3.5 L ultrafiltration. Patient now extubated, on 3 L FiO2 we will repeat HD today and again tomorrow , Hypertensive emergency: Status post nitro drip, restarted all home medications History of CHF History of coronary artery disease Anemia: We will order Epogen Patient evaluated using audiovisual cart. Time spent 45 minutes Attestations Medical Necessity Statement*: Requires further hospitalization for postextubation care and the patient with flash pulmonary edema in setting of hypertensive urgency, diastolic congestive heart failure, incisional disease on hemodialysis, uncontrolled hypertension Coding Level of Care Code Acute Code for Chg Fwd Diagnoses ESRD on dialysis N18.6; Z99.2
[2022-08-05] MEDS: acetaminophen 325 mg Tablet 650 MG PO ×2 (10:02→23:40)
[2022-08-05] MEDS: TRAMadol 50 mg Tablet PO ×2 (11:50→19:52)
[2022-08-05] MEDS: heparin, porcine 1,000 unit/mL INJ 10 mL 1000 UNIT IV (13:05)
--- NOTE | 2022-08-05 14:40 | PM.PN ---
Subjective Subjective: No acute events overnight. Patient has remained hemodynamically stable and afebrile. More awake today. Asking for food. Blood pressure is a lot better controlled after starting doxazosin. Plan for another session of dialysis today. Medications: Reviewed: Yes Vitals/I&O/Wt Last Vital Signs Temp 98.6 F 08/05/22 04:00 Pulse 67 08/05/22 14:35 Resp 14 08/05/22 14:00 BP 113/47 08/05/22 14:00 Pulse Ox 96 08/05/22 14:00 O2 Del Method 08/05/22 14:00 O2 Flow Rate 3 08/05/22 14:00 FiO2 35 08/04/22 07:43 08/04/22 08/05/22 08/05/22 22:59 06:59 14:59 Intake Total 460 / 510 250 / 760 350 / 350 Output Total 0 / 0 Balance 460 / 510 250 / 760 350 / 350 Weight last 48 hrs Weight 71.384 kg Weight 71.384 kg Weight 71.3 kg Physical Exam Narrative: General: No acute distress, chronically sick appearing, slightly drowsy but waking up to verbal stimulus HEENT: PERRLA, pupils bilaterally equal and reactive Chest: Normal vesicular breath sounds, no added sounds, equal good air entry bilaterally CVS: S1-S2 regular, no murmurs, no tachycardia, no gallops, no rubs Abdomen: Soft, nontender, no organomegaly, bowel sounds present Neuro: Pupils bilaterally equal and reactive Data 08/05/22 04:17 08/05/22 04:17 Micro: Microbiology 08/03/22 13:40 Gram Stain - Final Sputum - Endotracheal Tube Aspirate Sputum Culture - Preliminary 08/03/22 14:05 MRSA Culture - Final Nose 08/03/22 14:32 Blood Culture - Preliminary Blood NEGATIVE TO DATE 08/03/22 14:39 Blood Culture - Preliminary Blood NEGATIVE TO DATE A&P Assessment and plan (1) Respiratory failure: Most likely in setting of congestive heart failure from hypertensive emergency. Extubated on 08/04. Maintain saturation over 90%. Oxygen supplementation accordingly. MRSA swab, respiratory viral panel negative. Sputum culture pending. Follow-up blood culture, urine culture. High concerns for aspiration. Patient has remained hemodynamically stable and afebrile. Stop antibiotics and monitor. Start on regular renal dialysis diet. (2) Hypertensive emergency: Most likely secondary to noncompliance. Target blood pressure less than 140/90 mmHg. On multiple antihypertensives at the maximum dose at home. Cannot rule out secondary hypertension. Appreciate renal artery duplex. Cannot rule out underlying pheochromocytoma specially given episodes of sporadic hypertension leading to flash pulmonary edema and multiple admissions in the past. We will plan to send for catecholamines urinary and plasma fractions. Straight cath if needed. Blood pressure is a lot better after starting doxazosin. Continue with Cardura 2 mg oral daily, amlodipine 10 mg daily, minoxidil 2.5 mg twice daily, hydralazine 100 mg 3 times daily. Decrease labetalol to 100 mg 3 times daily, Imdur to 120 mg daily from twice daily. Hold off on clonidine. We will continue to monitor and change medications accordingly. (3) Congestive heart failure: History of congestive heart failure with preserved ejection fraction. Last echocardiogram from March 2022 shows EF of 63% with moderate LVH and grade 3 diastolic dysfunction with mild MR. Most likely in setting of hypertensive urgency (4) Noncompliance: (5) ESRD on dialysis: Nephrology consulted. Plan for dialysis today. (6) Atherosclerosis of coronary artery: Continue with home dose of aspirin, Plavix. Cycle troponins high but trending down. No active chest pain. Plan Anemia: Most likely in setting of iron deficiency and chronic disease from end-stage renal disease. Iron deficiency and vitamin B12 deficiency. Continue with IV iron 200 mg dative finish a 5-day course. Start on cyanocobalamin 1000 units IM daily. Received Procrit on 08/03 with dialysis. Target hemoglobin over 8. Transfuse monitor PRBC. Glycemic control: Not needed. Nutrition: Renal dialysis diet. CODE STATUS: Full code PUD prophylaxis: Famotidine DVT prophylaxis: Eliquis 2.5 mg twice daily at home dose Discharge planning: Home with caregiver once medically stable Continue care at ICU for close monitoring of blood pressures while multiple antihypertensives were adjusted. This documentation was created by [employer] configuration management consultant software. Every effort was made to ensure accuracy of configuration management consultant. Any obvious errors or omissions should be clarified with the author of the document. Attestations Medical Necessity Statement*: Requires further hospitalization for management of respiratory failure in setting of flash pulmonary edema secondary to uncontrolled hypertension in a patient with end-stage renal disease on hemodialysis. Diagnoses Respiratory failure J96.90 Hypertensive emergency I16.1 Congestive heart failure I50.9 Noncompliance Z91.199 ESRD on dialysis N18.6; Z99.2 Atherosclerosis of coronary artery I25.10
[2022-08-05] MEDS: iron sucrose 200 MG in sodium chloride 0.9% (100 ml) 100 ML 220 MG IV (17:37)
[2022-08-05] MEDS: amlodipine 10 mg Tablet PO (20:45)
[2022-08-05] MEDS: labetalol 200 mg Tablet 100 MG PO (22:19)
[2022-08-06] VITALS (59 sets, daily range): BP systolic 122–236; BP diastolic 58–145; PULSE 72–99; RESP 13–24; TEMP 36.6–37.1; O2SAT 83–100; BMI 20.7
[2022-08-06] MEDS: lidocaine 2% viscous 15 ML, aluminum-mag hydrox-simethicon 30 ML, sucralfate oral liq 1 GM PO (00:36)
[2022-08-06] MEDS: hyoscyamine ODT 0.125 mg Tablet PO (00:40)
--- NOTE | 2022-08-06 00:47 | PC.NURSE ---
08/05/22 2100 - Contacted MD on pt co abd pain. Described pain, pt clinical presentation, and medications given. Pt states that this is not a new pain for him and 'my hernia hurts.' New orders noted. 08/05/222229 - Pt continues to have pain despite prns and interventions. MD notified. 08/05/222344 - Pt continues to have pain. MD notified. New orders noted. 08/06/22 0010 - Discussed pt continued co pain and abd assessment. New orders noted.
[2022-08-06] MEDS: famotidine 20 mg/2 mL INJ IVP ×2 (01:13→14:59)
[2022-08-06 04:20] LABS: Basophils # 0.1 10^3/uL (0.0-0.1); Basophils % 1.1 %; Eosinophils # 0.5 10^3/uL (0.0-0.8); Eosinophils % 10.6 %; Hematocrit 23.7 % (42.0-52.0); Hemoglobin 7.4 g/dL (11.7-16.6); Lymphocytes # 0.6 10^3/uL (0.8-4.8); Lymphocytes % 12.5 %; Mean Corpuscular HGB Conc 31.2 g/dL (30.0-36.0); Mean Corpuscular Hemoglobin 29.1 pg (28.0-34.0); Mean Corpuscular Volume 93.3 fl (80-94); Mean Platelet Volume 9.4 fL (7.4-10.4); Monocytes # 0.6 10^3/uL (0.2-0.9); Monocytes % 13.2 %; Neutrophils # 2.88 10^3/uL (1.8-7.7); Neutrophils % 62.2 %; Nucleated Red Blood Cells % 0 %; Platelet Count 276 10^3/cmm (130-400); Red Blood Count 2.54 10^6/uL (4.1-5.3); Red Cell Distribution Width 17.5 % (12.1-15.1); White Blood Count 4.6 10^3/uL (4.0-10.0)
[2022-08-06 04:49] LABS: Alanine Aminotransferase 6 U/L (0-41); Albumin Level 3.6 g/dL (3.5-5.2); Alkaline Phosphatase 104 U/L (40-130); Anion Gap 15.3 (5-19); Aspartate Amino Transferase 9 U/L (0-40); Blood Urea Nitrogen 24 mg/dL (6-20); Calcium 9.5 mg/dL (8.5-10.5); Carbon Dioxide 29 mmol/L (22-29); Chloride 95 mmol/L (98-107); Globulin 3.4 g/dL (1.3-4.6); Glomerular Filtration Rate 12.1 mL/min (90-130); Glucose 97 mg/dL (65-115); Osmolality Calculated 284 mOsm/kg (285-295); Potassium 4.3 mmol/L (3.5-5.1); Sodium 135 mmol/L (136-145); Total Bilirubin 0.6 mg/dL (0.15-1.2)
[2022-08-06 04:51] LABS: Vancomycin Trough 9.9 ug/mL (10-15)
[2022-08-06] MEDS: apixaban 5 mg Tablet 2.5 MG PO ×2 (09:05→17:51)
[2022-08-06] MEDS: clopidogrel 75 mg Tablet PO (09:06)
[2022-08-06] MEDS: doxazosin 4 mg Tablet 2 MG PO (09:06)
[2022-08-06] MEDS: minoxidil 10 mg Tablet 2.5 MG PO ×2 (09:07→21:35)
[2022-08-06] MEDS: cyanocobalamin 1,000 mcg/mL SDV 1000 MCG IM (09:07)
[2022-08-06] MEDS: TRAMadol 50 mg Tablet PO ×3 (09:08→22:34)
--- NOTE | 2022-08-06 09:28 | PM.PN ---
Subjective Subjective: extubated Medications: Reviewed: Yes Vitals/I&O/Wt Last Vital Signs Temp 98.7 F 08/06/22 07:30 Pulse 88 08/06/22 08:58 Resp 18 08/06/22 08:58 BP 127/58 08/06/22 04:00 Pulse Ox 95 08/06/22 08:58 O2 Del Method 08/06/22 08:58 O2 Flow Rate 2 08/06/22 08:58 FiO2 35 08/04/22 07:43 08/05/22 08/06/22 08/06/22 22:59 06:59 14:59 Intake Total 240 / 590 240 / 830 Output Total 0 / 0 Balance 240 / 590 240 / 830 Weight last 48 hrs Weight 71.384 kg Weight 71.384 kg Physical Exam Narrative: Awake alert, no acute distress Data 08/06/22 03:55 08/06/22 03:55 Micro: Microbiology 08/03/22 13:40 Gram Stain - Final Sputum - Endotracheal Tube Aspirate Sputum Culture - Preliminary A&P Assessment and plan (1) ESRD on dialysis: Plan End-stage renal disease: On dialysis per [facility] schedule as outpatient, presented with volume overload, s Patient now extubated, on 3 L FiO2,plan for HD today , s/p hD yesterday , Hypertensive emergency: Status post nitro drip, restarted all home medications History of CHF History of coronary artery disease Anemia: We will order Epogen Patient evaluated using audiovisual cart. Time spent 45 minutes Attestations Medical Necessity Statement*: per medicine . Coding Level of Care Code Acute Code for Chg Fwd Diagnoses ESRD on dialysis N18.6; Z99.2
--- NOTE | 2022-08-06 11:21 | PC.SOCIAL ---
Pg 2 IMM Explained to pt Pg 2 IMM. No questions voiced. Provided pt a copy. Initialed, dated, & timed a copy & placed in chart.
--- NOTE | 2022-08-06 13:56 | PM.PN ---
Subjective Subjective: No acute events overnight. Today morning patient seen sitting up in bed, awake and alert. Blood pressure is better. Denies any nausea, vomiting, headache. On 2 L of oxygen supplementation maintaining more than 95%. Medications: Reviewed: Yes Vitals/I&O/Wt Last Vital Signs Temp 98.7 F 08/06/22 07:30 Pulse 84 08/06/22 11:30 Resp 14 08/06/22 11:30 BP 127/66 08/06/22 11:30 Pulse Ox 93 08/06/22 11:00 O2 Del Method 08/06/22 08:58 O2 Flow Rate 2 08/06/22 08:58 FiO2 35 08/04/22 07:43 08/05/22 08/06/22 08/06/22 22:59 06:59 14:59 Intake Total 240 / 590 240 / 830 Output Total 0 / 0 Balance 240 / 590 240 / 830 Weight last 48 hrs Weight 71.384 kg Weight 71.384 kg Weight 71.384 kg Physical Exam Narrative: General: No acute distress, chronically sick appearing, slightly drowsy but waking up to verbal stimulus HEENT: PERRLA, pupils bilaterally equal and reactive Chest: Normal vesicular breath sounds, no added sounds, equal good air entry bilaterally CVS: S1-S2 regular, no murmurs, no tachycardia, no gallops, no rubs Abdomen: Soft, nontender, no organomegaly, bowel sounds present Neuro: Pupils bilaterally equal and reactive Data 08/06/22 03:55 08/06/22 03:55 Micro: Microbiology 08/03/22 13:40 Gram Stain - Final Sputum - Endotracheal Tube Aspirate Sputum Culture - Final A&P Assessment and plan (1) Respiratory failure: Most likely in setting of congestive heart failure from hypertensive emergency. Extubated on 08/04. Maintain saturation over 90%. Oxygen supplementation accordingly. MRSA negative, respiratory viral panel negative. Sputum culture shows nornal jaylon. Follow-up blood culture, urine culture. High concerns for aspiration. Patient has remained hemodynamically stable and afebrile. Stop antibiotics and monitor. Start on regular renal dialysis diet. (2) Hypertensive emergency: Most likely secondary to noncompliance. Target blood pressure less than 140/90 mmHg. On multiple antihypertensives at the maximum dose at home. Cannot rule out secondary hypertension. Appreciate renal artery duplex. Cannot rule out underlying pheochromocytoma specially given episodes of sporadic hypertension leading to flash pulmonary edema and multiple admissions in the past. Plasma catecholamines sent. Patient refused straight catheter could not send urine catecholamines. Blood pressure is a lot better after starting doxazosin. Continue with Cardura 2 mg oral daily. Continue with minoxidil 2.5 mg twice daily, hydralazine 50 mg 3 times daily, Imdur 60 mg daily, Coreg 6.25 mg twice daily. Will uptitrate given goals and blood pressures. Otherwise hold off on all other antihypertensives which patient previously on for now. We will continue to monitor and change medications accordingly. (3) Congestive heart failure: History of congestive heart failure with preserved ejection fraction. Last echocardiogram from March 2022 shows EF of 63% with moderate LVH and grade 3 diastolic dysfunction with mild MR. Most likely in setting of hypertensive urgency (4) Noncompliance: (5) ESRD on dialysis: Nephrology consulted. Plan for dialysis today. (6) Atherosclerosis of coronary artery: Continue with home dose of aspirin, Plavix. Cycle troponins high but trending down. No active chest pain. Plan Anemia: Most likely in setting of iron deficiency and chronic disease from end-stage renal disease. Iron deficiency and vitamin B12 deficiency. Continue with IV iron 200 mg dative finish a 5-day course. Switch to oral cyanocobalamin mean 500 mcg daily. Received Procrit on 08/03 with dialysis. Target hemoglobin over 8. Continue to monitor PRBC. Glycemic control: Not needed. Nutrition: Renal dialysis diet. CODE STATUS: Full code PUD prophylaxis: Famotidine DVT prophylaxis: Eliquis 2.5 mg twice daily at home dose Discharge planning: Home with caregiver once medically stable Continue care at ICU for close monitoring of blood pressures while multiple antihypertensives were adjusted. This documentation was created by [employer] social worker assistant software. Every effort was made to ensure accuracy of social worker assistant. Any obvious errors or omissions should be clarified with the author of the document. Attestations Medical Necessity Statement*: Requires further hospitalization for management of end-stage renal disease on dialysis, uncontrolled hypertension while antihypertensives were adjusted Diagnoses Respiratory failure J96.90 Hypertensive emergency I16.1 Congestive heart failure I50.9 Noncompliance Z91.199 ESRD on dialysis N18.6; Z99.2 Atherosclerosis of coronary artery I25.10
[2022-08-06] MEDS: hyDRALAzine 50 mg Tablet PO ×2 (14:59→21:35)
[2022-08-06] MEDS: iron sucrose 200 MG in sodium chloride 0.9% (100 ml) 100 ML 220 MG IV (18:01)
--- NOTE | 2022-08-06 23:19 | PC.NURSE ---
2230 Patient c/o ABD pain 12/11. Tramadol administered per order. Upon PRN assessment patient reported that pain had not been relieved and requested more medication. Dr. Nation notified. No new orders were received at this time.
[2022-08-07] VITALS (23 sets, daily range): BP systolic 135–226; BP diastolic 73–116; PULSE 79–97; RESP 13–22; O2SAT 90–100
--- NOTE | 2022-08-07 00:48 | PC.NURSE ---
Patient continued to c/o ABD pain. Assessment findings include protrusion from umbilicus, soft abdomen, and positive bowel sounds. This was reported to Dr. Nation. Morphine was ordered at this time.
[2022-08-07] MEDS: morphine 4 mg/mL SDV 1 mL 2 MG IVP (01:01)
[2022-08-07] MEDS: famotidine 20 mg/2 mL INJ IVP (01:02)
[2022-08-07 04:07] LABS: Basophils # 0.1 10^3/uL (0.0-0.1); Basophils % 1.3 %; Eosinophils # 0.4 10^3/uL (0.0-0.8); Eosinophils % 9.2 %; Hematocrit 24.8 % (42.0-52.0); Hemoglobin 7.9 g/dL (11.7-16.6); Lymphocytes # 0.6 10^3/uL (0.8-4.8); Lymphocytes % 12.2 %; Mean Corpuscular HGB Conc 31.9 g/dL (30.0-36.0); Mean Corpuscular Hemoglobin 29.8 pg (28.0-34.0); Mean Corpuscular Volume 93.6 fl (80-94); Mean Platelet Volume 9.5 fL (7.4-10.4); Monocytes # 0.6 10^3/uL (0.2-0.9); Neutrophils % 64.4 %; Nucleated Red Blood Cells % 0 %; Platelet Count 290 10^3/cmm (130-400); Red Blood Count 2.65 10^6/uL (4.1-5.3); Red Cell Distribution Width 17.6 % (12.1-15.1); White Blood Count 4.7 10^3/uL (4.0-10.0)
[2022-08-07 04:32] LABS: Alanine Aminotransferase 6 U/L (0-41); Albumin Level 3.6 g/dL (3.5-5.2); Alkaline Phosphatase 106 U/L (40-130); Anion Gap 16.5 (5-19); Aspartate Amino Transferase 10 U/L (0-40); Blood Urea Nitrogen 17 mg/dL (6-20); Carbon Dioxide 28 mmol/L (22-29); Chloride 96 mmol/L (98-107); Globulin 3.6 g/dL (1.3-4.6); Glomerular Filtration Rate 16.3 mL/min (90-130); Glucose 84 mg/dL (65-115); Osmolality Calculated 283 mOsm/kg (285-295); Potassium 4.5 mmol/L (3.5-5.1); Sodium 136 mmol/L (136-145); Total Bilirubin 0.5 mg/dL (0.15-1.2); Total Protein 7.2 g/dL (6.6-8.7)
[2022-08-07] MEDS: hyDRALAzine 50 mg Tablet PO (08:23)
[2022-08-07] MEDS: apixaban 5 mg Tablet 2.5 MG PO (08:23)
[2022-08-07] MEDS: TRAMadol 50 mg Tablet PO (08:23)
[2022-08-07] MEDS: clopidogrel 75 mg Tablet PO (08:24)
[2022-08-07] MEDS: minoxidil 10 mg Tablet 2.5 MG PO (08:24)
[2022-08-07] MEDS: carvedilol 6.25 mg Tablet PO (08:24)
[2022-08-07] MEDS: isosorbide mononitrate ER 60 mg Tablet PO (08:25)
[2022-08-07] MEDS: doxazosin 4 mg Tablet PO (08:25)
--- NOTE | 2022-08-07 11:30 | PM.PN ---
Subjective Subjective: Status post HD yesterday, currently on 1 L FiO2 Medications: Reviewed: Yes Vitals/I&O/Wt Last Vital Signs Temp 97.8 F 08/06/22 19:15 Pulse 82 08/07/22 10:30 Resp 14 08/07/22 08:00 BP 157/84 08/07/22 10:30 Pulse Ox 94 08/07/22 10:30 O2 Del Method 08/07/22 08:00 O2 Flow Rate 2 08/07/22 08:00 FiO2 35 08/04/22 07:43 08/06/22 08/07/22 08/07/22 22:59 06:59 14:59 Intake Total 1270 / 1270 200 / 1470 350 / 350 Output Total 3000 / 3000 0 / 0 Balance -1730 / -1730 200 / -1530 350 / 350 Weight last 48 hrs Weight 70.76 kg Weight 71.1 kg Weight 71.384 kg Physical Exam Narrative: Awake alert, no acute distress Data 08/07/22 03:21 08/07/22 03:21 Micro: Microbiology 08/03/22 13:40 Gram Stain - Final Sputum - Endotracheal Tube Aspirate Sputum Culture - Final A&P Assessment and plan (1) ESRD on dialysis: Plan End-stage renal disease: On dialysis per [facility] schedule as outpatient, presented with volume overload, s Patient now extubated, on 2 L FiO2, , s/p hD yesterday , Hypertensive emergency: Status post nitro drip, restarted all home medications History of CHF History of coronary artery disease Anemia: We will order Epogen Patient evaluated using audiovisual cart. Time spent 45 minutes Attestations Medical Necessity Statement*: per medicine . Coding Level of Care Code Acute Code for Chg Fwd Diagnoses ESRD on dialysis N18.6; Z99.2
--- NOTE | 2022-08-07 11:49 | PM.DCS ---
Discharge Providers Date of Admission: 08/03/22 12:02 Date of Discharge: August 07, 2022 Attending Provider at Admission: Kerwin Platt MD Attending Provider at Discharge: Kerwin Platt MD Primary Care Provider: Mal Peres DO Diagnoses at Discharge Discharge Diagnosis (1) ESRD on dialysis: Status: Acute Reason for Visit Reason for Visit: SOB Hospital Course Hospital Course Mal Gibbs is a 41 year old male with past medical history of end-stage renal disease on maintenance hemodialysis with multiple admission in the past for hypertensive urgency, congestive heart failure, was transferred from outside hospital today. As per chart review patient was most recently in hospital and discharged on 07/29 where again he was admitted for hypoxic respiratory failure in setting of hypertensive urgency from medication noncompliance. As per chart review and conversation with physician at the hospital patient presented in principal bioinformatics specialist today with difficulty breathing and found to be in hypertensive urgency.? Patient was apparently mildly agitated hence was intubated to protect airway prior to coming. On presentation to the ICU he is on propofol of 80, nitro drip of 6 with blood pressures of 160 over 90 mmHg, sedated. Patient was admitted to the ICU for further evaluation and management of respiratory failure in setting of decompensated diastolic congestive heart failure from hypertensive urgency. He required extra session of dialysis after which he attained euvolemia and he was gradually extubated. At first he was started on broad-spectrum antibiotics which were later stopped and monitored for 24 hours during which he remained hemodynamic stable and afebrile. Postextubation patient was back to his baseline mentation. During hospitalization multiple antihypertensives were adjusted. At baseline patient is on multiple antihypertensives at the maximum dose. Given concerns for recurrent admissions in setting of respiratory failure from hypertensive urgency even though as per family patient is taking his medications regularly there were concerns for possible pheochromocytoma. Catecholamines levels were sent out. Patient was started on doxazosin after stopping his beta-blockers. He responded well to the treatment and his blood pressures are a lot better controlled on less antihypertensives. Patient was again monitored for 24 to 48 hours on new medications. He has been discharged on doxazosin 4 mg daily, Imdur 60 mg twice daily, amlodipine 10 mg nightly, hydralazine 50 mg 3 times daily, Coreg 12.5 mg twice daily, minoxidil 2.5 mg twice daily. He is advised to follow-up primary care provider within next 1 week. Continue checking his blood pressures daily at home and maintain a blood pressure diary. It is being tried to set up home health for patient for further help with medications and blood pressure checks. Physical Exam Narrative: General: No acute distress, chronically sick appearing, slightly drowsy but waking up to verbal stimulus HEENT: PERRLA, pupils bilaterally equal and reactive Chest: Normal vesicular breath sounds, no added sounds, equal good air entry bilaterally CVS: S1-S2 regular, no murmurs, no tachycardia, no gallops, no rubs Abdomen: Soft, nontender, no organomegaly, bowel sounds present Neuro: Pupils bilaterally equal and reactive Discharge Data Studies Completed and Pending Completed Studies During Hospitalization Category Date Time Status XR chest 1V portable [id number] Routine Exams 08/03/22 13:52 Completed US renal doppler [ renal doppler 44224] Routine Ultrasound 08/04/22 17:03 Completed Pending at discharge Category Date Time Status Blood Culture Stat Lab 08/03/22 14:32 Results Catecholamines Frac,Urine Guy Routine Lab 08/05/22 14:45 Uncollected Catecholamines Urine w/Creatin Routine Lab 08/05/22 14:45 Uncollected Catecholamines, Fraction Plasm Routine Lab 08/05/22 15:15 Received Radiology Impressions Chest X-Ray 08/03/22 13:52 IMPRESSION: 1. Tip of the ET tube projects 3.2 cm superior to the avery. 2. The G-tube passes below the hemidiaphragm. Distal tip of the G tube not visualized. 3. Cardiomegaly. 4. There are hazy infiltrates in the mid to lower right lung field. Differential includes pneumonia and/or pulmonary edema. 5. There is mild blunting of the right costophrenic angle suggestive of a small pleural effusion. Laboratory Results WBC 4.7 10^3/uL (4.0-10.0) 08/07/22 03:21 RBC 2.65 10^6/uL (4.1-5.3) L 08/07/22 03:21 Hgb 7.9 g/dL (11.7-16.6) L 08/07/22 03:21 Hct 24.8 % (42.0-52.0) L 08/07/22 03:21 MCV 93.6 fl (80-94) 08/07/22 03:21 MCH 29.8 pg (28.0-34.0) 08/07/22 03:21 MCHC 31.9 g/dL (30.0-36.0) 08/07/22 03:21 RDW 17.6 % (12.1-15.1) H 08/07/22 03:21 Plt Count 290 10^3/cmm (130-400) 08/07/22 03:21 MPV 9.5 fL (7.4-10.4) 08/07/22 03:21 Neut % (Auto) 64.4 % 08/07/22 03:21 Lymph % (Auto) 12.2 % 08/07/22 03:21 [place] % (Auto) 12.0 % 08/07/22 03:21 Eos % (Auto) 9.2 % 08/07/22 03:21 Baso % (Auto) 1.3 % 08/07/22 03:21 Neut # (Auto) 3.00 10^3/uL (1.8-7.7) 08/07/22 03:21 Lymph # (Auto) 0.6 10^3/uL (0.8-4.8) L 08/07/22 03:21 [place] # (Auto) 0.6 10^3/uL (0.2-0.9) 08/07/22 03:21 Eos # (Auto) 0.4 10^3/uL (0.0-0.8) 08/07/22 03:21 Baso # (Auto) 0.1 10^3/uL (0.0-0.1) 08/07/22 03:21 Nucleated RBC % (auto) 0 % 08/07/22 03:21 Nucleated RBCs # 0.0 /100WBC 08/07/22 03:21 Specimen Type Arterial 08/03/22 13:37 Sample Site Brachial, right 08/03/22 13:37 ABG pH 7.38 (7.35-7.45) 08/03/22 13:37 ABG pCO2 50.8 mmHg (35-45) H 08/03/22 13:37 ABG pO2 272.0 mmHg (80.0-100.0) H 08/03/22 13:37 ABG HCO3 30.1 mmol/L (22-26) H 08/03/22 13:37 ABG O2 Saturation > 100.0 08/03/22 13:37 ABG Base Excess 4.4 mmol/L (-2.0-2.0) H 08/03/22 13:37 Alexei Test Pos 08/03/22 13:37 A-a O2 Gradient 48.5 mmHg (5-10) H 08/03/22 13:37 Hematocrit 23.7 % (42-52) L 08/03/22 13:37 Hgb O2 Saturation 98.5 % (95-100) 08/03/22 13:37 Carboxyhemoglobin 2.0 %THgb (0.4-20.1) 08/03/22 13:37 Methemoglobin 0.4 % (0.4-1.5) 08/03/22 13:37 Total Hemoglobin 7.7 g/dL (14-18) L 08/03/22 13:37 Sodium 131.0 mmol/L (131-143) 08/03/22 13:37 Potassium 5.4 mmol/L (3.5-5.0) H 08/03/22 13:37 Glucose 54.0 mg/dL (70-115) L 08/03/22 13:37 Ionized Calcium 1.2 mmol/L (1.1-1.4) 08/03/22 13:37 O2 Delivery Device Vent 08/03/22 13:37 FiO2 100.0 % 08/03/22 13:37 Tidal Volume 0.45 08/03/22 13:37 PEEP 8.0 cmH20 08/03/22 13:37 Dry Cleaner Hand ID [place] 08/03/22 13:37 Sodium 136 mmol/L (136-145) 08/07/22 03:21 Potassium 4.5 mmol/L (3.5-5.1) 08/07/22 03:21 Chloride 96 mmol/L (98-107) L 08/07/22 03:21 Carbon Dioxide 28 mmol/L (22-29) 08/07/22 03:21 Anion Gap 16.5 (5-19) 08/07/22 03:21 BUN 17 mg/dL (6-20) 08/07/22 03:21 Creatinine 4.1 mg/dL (0.7-1.2) H 08/07/22 03:21 GFR Calculation 16.3 mL/min (90-130) L 08/07/22 03:21 Glucose 84 mg/dL (65-115) 08/07/22 03:21 POC Glucose 76 mg/dL (70-110) 08/03/22 23:16 Estimat Average Glucose 68 08/04/22 02:52 Hemoglobin A1c 4.0 % (4.0-6.0) 08/04/22 02:52 Calculated Osmolality 283 mOsm/kg (285-295) L 08/07/22 03:21 Calcium 10.0 mg/dL (8.5-10.5) 08/07/22 03:21 Phosphorus 5.2 mg/dL (2.5-4.5) H 08/04/22 02:52 Magnesium 1.9 mg/dL (1.7-2.3) 08/04/22 02:52 Iron 17 ug/dL (59-158) L 08/03/22 14:32 TIBC 181 mcg/dl 08/03/22 14:32 % Saturation 9.3 % (20-50) L 08/03/22 14:32 Unsat Iron Binding 164 ug/dL (112-347) 08/03/22 14:32 Total Bilirubin 0.5 mg/dL (0.15-1.2) 08/07/22 03:21 AST 10 U/L (0-40) 08/07/22 03:21 ALT 6 U/L (0-41) 08/07/22 03:21 Alkaline Phosphatase 106 U/L (40-130) 08/07/22 03:21 Troponin T Baseline 162 ng/L (0-15) H* 08/03/22 16:47 Troponin T 120 Minute 160.8 ng/L (0-15) H 08/03/22 18:43 Delta Troponin T -1.2 ABS# (0-10) L 08/03/22 18:43 Troponin T Hi Sens 6Hr 153.6 ng/L (0-15) H 08/03/22 22:48 Troponin T Hi Sens 6Hr Delta -8.4 ng/L (0-12) L 08/03/22 22:48 Total Protein 7.2 g/dL (6.6-8.7) 08/07/22 03:21 Albumin 3.6 g/dL (3.5-5.2) 08/07/22 03:21 Globulin 3.6 g/dL (1.3-4.6) 08/07/22 03:21 Triglycerides 78 mg/dL (0-150) 08/04/22 02:52 Cholesterol 101 mg/dL (0-200) 08/04/22 02:52 LDL Cholesterol, Calc 53 mg/dL (50-129) 08/04/22 02:52 HDL Cholesterol 32 mg/dL (60-100) L 08/04/22 02:52 LDL/HDL Ratio 1.66 RATIO (0.00-3.22) 08/04/22 02:52 Cholesterol/HDL Ratio 3.16 mg/dL (1.0-5.00) 08/04/22 02:52 Vitamin B12 221 pg/mL (232-1245) L 08/03/22 14:32 Folate 7.7 ng/mL (4.5-32.2) 08/03/22 14:32 Procalcitonin 2.24 ng/mL (0-0.5) H 08/03/22 14:32 TSH 2.03 uIU/mL (0.27-4.20) 08/03/22 14:32 Urine Color Light yellow (Yellow) 08/03/22 14:20 Urine Appearance Clear (CLEAR) 08/03/22 14:20 Urine pH 9 (5-7) H 08/03/22 14:20 Ur Specific [place] 1.015 (1.005-1.030) 08/03/22 14:20 Urine Protein 3+ (Negative) H 08/03/22 14:20 Urine Glucose (UA) 2+ (Normal) H 08/03/22 14:20 Urine Ketones Negative (Negative) 08/03/22 14:20 Urine Blood 2+ (Negative) H 08/03/22 14:20 Urine Nitrate Negative (Negative) 08/03/22 14:20 Urine Bilirubin Neg (Negative) 08/03/22 14:20 Prot Sulfosalicylic Acd Positive (Negative) 08/03/22 14:20 Urine Urobilinogen Norm mg/dL (Negative) 08/03/22 14:20 Ur Leukocyte Esterase Negative (Negative) 08/03/22 14:20 Urine RBC 0-4 /hpf (0-2) H 08/03/22 14:20 Urine WBC 0-4 /hpf (0-5) H 08/03/22 14:20 Ur Squamous Epith Cells 0-4 /hpf (0-5) H 08/03/22 14:20 Amorphous Sediment 2+ /hpf 08/03/22 14:20 Urine Bacteria Trace /hpf (NONE) 08/03/22 14:20 Nasal Influ A H1 2009 PCR Not detected (NOT DETECT) 08/03/22 14:05 Vancomycin Trough 9.9 ug/mL (10-15) L 08/06/22 03:55 Urine Opiates Screen Negative ng/mL (Negative) 08/03/22 14:20 Ur Barbiturates Screen Negative ng/mL (Negative) 08/03/22 14:20 Ur Phencyclidine Scrn Negative ng/mL (Negative) 08/03/22 14:20 Ur Amphetamines Screen Negative ng/mL (Negative) 08/03/22 14:20 U Benzodiazepines Scrn Negative ng/mL (Negative) 08/03/22 14:20 Urine Cocaine Screen Negative ng/mL (Negative) 08/03/22 14:20 U Marijuana (THC) Screen Negative ng/mL (Negative) 08/03/22 14:20 Adenovirus (PCR) Not detected (NOT DETECT) 08/03/22 14:05 C. pneumoniae DNA (PCR) Not detected (NOT DETECT) 08/03/22 14:05 Coronavirus 229E (PCR) Not detected (NOT DETECT) 08/03/22 14:05 Human Metapneumovir PCR Not detected (NOT DETECT) 08/03/22 14:05 Influenza A (H1) PCR Not detected (NOT DETECT) 08/03/22 14:05 Influenza A (H3) PCR Not detected (NOT DETECT) 08/03/22 14:05 Influenza Type A (PCR) Not detected (NOT DETECT) 08/03/22 14:05 Influenza Type B (PCR) Not detected (NOT DETECT) 08/03/22 14:05 M. pneumoniae (PCR) Not detected (NOT DETECT) 08/03/22 14:05 Parainfluenza 1 (PCR) Not detected (NOT DETECT) 08/03/22 14:05 Parainfluenza 2 (PCR) Not detected (NOT DETECT) 08/03/22 14:05 Parainfluenza 3 (PCR) Not detected (NOT DETECT) 08/03/22 14:05 Parainfluenza 4 (PCR) Not detected (NOT DETECT) 08/03/22 14:05 RSV Type A (PCR) Not detected (NOT DETECT) 08/03/22 14:05 RSV Type B (PCR) Not detected (NOT DETECT) 08/03/22 14:05 Entero/Rhino (PCR) Not detected (NOT DETECT) 08/03/22 14:05 SARS-CoV-2 (PCR) Not detected (NOT DETECT) 08/03/22 14:05 Blood Type O Positive 08/04/22 04:30 Rho(D) Type Positive 08/04/22 04:30 Antibody Screen Negative 08/04/22 04:30 Crossmatch See Detail 08/04/22 04:30 Vitals Last Vital Signs Temp 97.8 F 08/06/22 19:15 Pulse 82 08/07/22 10:30 Resp 14 08/07/22 08:00 BP 157/84 08/07/22 10:30 Pulse Ox 94 08/07/22 10:30 O2 Del Method 08/07/22 08:00 O2 Flow Rate 2 08/07/22 08:00 FiO2 35 08/04/22 07:43 Discharge Plan Discharge Patient Disposition: Home Health Service Condition: Stable Prescriptions: New hydralazine 50 mg Tablet 50 mg PO TID 30 Days Qty: 90 0RF isosorbide mononitrate 60 mg Tablet Extended Release 24 Hr 60 mg PO BID 30 Days Qty: 60 0RF doxazosin 4 mg Tablet 4 mg PO DAILY 30 Days Qty: 30 0RF cyanocobalamin (vitamin B-12) 1,000 mcg capsule 1,000 mcg PO DAILY Qty: 30 0RF ferrous gluconate 324 mg (37.5 mg iron) tablet 324 mg PO BID Qty: 60 0RF Continued Incruse Ellipta 62.5 mcg/actuation blister with device 1 inh INHALATION DAILY Qty: 30 2RF clonazepam 0.5 mg tablet 0.5 mg PO BEDTIME Qty: 30 0RF quetiapine 25 mg tablet 25 mg PO DAILY Qty: 90 0RF cyclobenzaprine 10 mg tablet 10 mg PO Q12H PRN (Reason: muscle spasm) Qty: 30 2RF nitroglycerin 0.4 mg tablet, sublingual 0.4 mg SUBLINGUAL Q5M PRN (Reason: Chest Pain) Qty: 30 5RF Rx Instructions: do not exceed 3 doses per episode clopidogrel 75 mg tablet 75 mg PO DAILY Qty: 90 3RF (DME) DME - BIPAP See Rx Instructions .Route .MEDSUPPLY Qty: 1 0RF Rx Instructions: Inspiratory Pressure: 16mmHg Expiratory Pressure: 8 mmHg Will need oxygen bled in to the machine to maintain sats >/= 90%. (DME) DME - Oxygen See Rx Instructions .Route .MEDSUPPLY Qty: 1 0RF Rx Instructions: Supplemental Oxygen bled into BIPAP at 2-3L to maintain oxygen sats at >/= 90%. Auryxia 210 mg iron Tablet 420 mg PO TID Rx Instructions: administer with a meal minoxidil 2.5 mg Tablet 2.5 mg PO BID aspirin 81 mg tablet,delayed release (DR/EC) 81 mg PO DAILY amlodipine 10 mg tablet 10 mg PO BEDTIME pantoprazole 40 mg tablet,delayed release (DR/EC) 40 mg PO DAILY albuterol sulfate 90 mcg/actuation HFA aerosol inhaler 2 puff inhalation Q6H PRN (Reason: Shortness Of Breath Or Wheezing) polyethylene glycol 3350 [Miralax] 17 gram Powder In Packet 17 g PO DAILY Eliquis 5 mg Tablet 2.5 mg PO BID hydrocodone-acetaminophen 5-325 mg tablet 1 tab PO Q6H PRN (Reason: Pain) Changed carvedilol 6.25 mg tablet 12.5 mg PO BID 30 Days Qty: 120 0RF Discontinued hydralazine 100 mg tablet 100 mg PO TID Qty: 270 3RF lisinopril 40 mg Tablet 40 mg PO DAILY clonidine HCl 0.3 mg tablet 0.3 mg PO TID isosorbide mononitrate 120 mg tablet extended release 24 hr 120 mg PO BID labetalol 200 mg tablet 200 mg PO Q8H spironolactone 100 mg tablet 100 mg PO DAILY Discharge Orders: Discharge Order (Routine); Ordered 08/07/22 Ordered By: Kerwin Platt Referrals: Mal Peres DO [Primary Care Provider] - 4-7 days Discharge Diet: Cardiac Discharge Activity: Resume usual activity and Increase activity as tolerated Patient Instructions: Opioid Safety Activity Restrictions/Additional Instructions: Continue dialysis sessions as before. Multiple medication changes has been done. Do not take labetalol, lisinopril, spironolactone and clonidine anymore. You are started on new medication called doxazosin 4 mg daily. Dose of other medications has been changed. Imdur is down to 60 mg twice daily from 120 mg twice daily, hydralazine 50 mg 3 times a day from 100 mg 3 times a day. Amlodipine 10 mg nightly, minoxidil 2.5 mg twice daily have been continued. Discharge Attestations Time Spent in Discharge Care*: greater than 30 min Specific Discharge Activities: educating patient, educating and/or supporting family/caregiver, discussing with pcp/other providers, discussing with immigration case manager/social workers/dc planners, documenting/other paperwork and evaluating patient/reviewing data Status at Discharge: Cognitive status at discharge: cognitively intact, Behavioral status at discharge: cooperative, Functional status at discharge: uses cane/walker, Overall status at discharge: patient is back to baseline Quality Metrics Clinical Quality Measures [ No reported AMI, CVA or VTE this stay] Coding Level of Care Code 89410 Total time (in minutes) for Discharge: 60 Diagnoses ESRD on dialysis N18.6; Z99.2
[2022-09-01 16:34] LABS: Dopamine Level 224 pg/mL; Epinephrine Level <80 pg/mL; Norepinephrine Level 1165 pg/mL; Total Catecholamines 1389 pg/mL
== END 2022-08-07 14:00 | disposition home health service (06) | DRG 208 ==
PROVIDERS: Admitting Provider Student in an Organized Health Care Education/Training Program; PCP Family Medicine; Visit Provider Student in an Organized Health Care Education/Training Program
DX: J96.21 Acute and chronic respiratory failure with hypoxia (principal); N18.6 End stage renal disease; I50.33 Acute on chronic diastolic (congestive) heart failure; I13.2 Hypertensive heart and chronic kidney disease with heart failure and with stage 5 chronic kidney disease, or end stage renal disease; I16.1 Hypertensive emergency; Z99.2 Dependence on renal dialysis; Z79.02 Long term (current) use of antithrombotics/antiplatelets; Z79.82 Long term (current) use of aspirin; Z79.01 Long term (current) use of anticoagulants; Z79.51 Long term (current) use of inhaled steroids; D35.00 Benign neoplasm of unspecified adrenal gland; D50.9 Iron deficiency anemia, unspecified; Z86.711 Personal history of pulmonary embolism; F17.210 Nicotine dependence, cigarettes, uncomplicated; F41.1 Generalized anxiety disorder; M51.36 Other intervertebral disc degeneration, lumbar region; F32.A Depression, unspecified; Z86.16 Personal history of COVID-19; J44.9 Chronic obstructive pulmonary disease, unspecified; Z99.81 Dependence on supplemental oxygen; I25.10 Atherosclerotic heart disease of native coronary artery without angina pectoris; F41.9 Anxiety disorder, unspecified; D63.1 Anemia in chronic kidney disease
CPT/HCPCS: 12345; 36415; 36416; 36430; 36600; 71045; 80051; 80053; 80061; 80202; 80306; 81001; 82330; 82384; 82607; 82746; 82805; 82962; 83036; 83540; 83550; 83735; 84100; 84145; 84443; 84484; 85025; 86850; 86900; 86920; 87040; 87070; 87205; 87486; 87581; 87633; 87641; 90935; 92610; 93005; 93975; 94002; 94003; 94664; 94799; 96372; 96376; J1644; J1756; J2270; J2405; J2543; J2704; J3010; J3370; J3420; J3490; J7050; P9016; P9047; Q4081

== ENCOUNTER 2022-08-25 06:37 | Emergency (ER) | payer MEDICARE, MEDICAID, SELFPAY ==
[2022-08-25 06:43] VITALS: BP 182/123; PULSE 74; RESP 28; TEMP 36.8; O2SAT 90; BMI 19.8
--- NOTE | 2022-08-25 06:50 | ECG_ITS ---
[facility] Test Date: 2022-08-25 Pat Name: Mal Gibbs Department: Room: Gender: Male Ambulatory Technologist: : 1980 Requested By: Pato Spencer Order Number: [id number] Mohini MD: Bharathi Markham M.D. Measurements Intervals [place] Rate: 74 P: 66 OR: 221 QRS: 76 QRSD: 120 T: 85 QT: 440 QTc: 489 Interpretive Statements SINUS RHYTHM WITH FIRST DEGREE AV BLOCK POSSIBLE LEFT ATRIAL ENLARGEMENT [-0.1mV P-WAVE IN V1/V2] POSSIBLE LEFT VENTRICULAR HYPERTROPHY [VOLTAGE CRITERIA PLUS LAE OR QRS WIDENING] PROLONGED QT INTERVAL Compared to ECG 08/03/2022 20:11:10 First degree AV block now present T-wave abnormality no longer present Electronically Signed On 08-25-2022 14:29:07 CDT by Bharathi Markham M.D. [id number]
--- NOTE | 2022-08-25 06:50 | XR_ITS ---
WS: [id number] Exam: XR chest 1V portable [id number] Date/Time of Exam: 08/25/2022 7:00 AM Reason For Exam: dyspnea/cough Comparison 08/03/2022. The lungs are fully expanded. Chronic interstitial changes noted bilaterally. No acute infiltrates ar e suspected. There is cardiac enlargement unchanged. The mediastinum is normal in contour. No pleural effusions. Regional bony structures are intact. Monitoring leads superimpose the chest. XR/XR chest 1V portable [id number] IMPRESSION: 1. Chronic interstitial changes noted. No consolidating infiltrates. 2. Cardiac enlargement unchanged.
--- NOTE | 2022-08-25 06:52 | W.ED.SOB ---
HPI - SOB/Dyspnea General: Chief Complaint: Shortness of Breath/Dyspnea Stated Complaint: SOB Time Seen by Provider: 08/25/22 06:49 Source: patient Mode of arrival: EMS History of Present Illness: HPI Narrative: 41-year-old male presents emergency room complaining shortness of breath began around 5 AM this morning is a history of end-stage renal disease diastolic congestive heart failure. No chest pain at this time. He is oxygen dependent usually uses 4 L/min. He states he had a couple episodes of vomiting over the weekend with some flecks of blood. He does have a known inguinal hernia on the right. He states every time he eats or drinks he it seems to exacerbate it. In addition to his end-stage renal disease he has some chronic abdominal ascites and has had several paracentesis in the past. Patient reports several episodes of vomiting over the weekend including a few with small flecks of blood. He is on Eliquis. He is chronically anemic due to his renal failure. Denies any chest pain at this time. He has had markedly elevated liver enzymes in the past however on the imaging there is no mention of radiographic [place] findings of cirrhosis. MD elicited complaint: shortness of breath Pertinent past history: COPD, congestive heart failure, diabetes and other (ESRD) Timing: intermittent Severity: mild Exacerbating factors: nothing Relieving factors: oxygen Known history of: COPD and congestive heart failure Associated symptoms: Reports orthopnea; Deny abdominal pain, chest congestion, chest pain, cough, diaphoresis, dizziness, extremity pain, fever(s), hemoptysis, lightheadedness, myalgias, nausea, palpitations, paresthesias, polydipsia, polyuria, rash, sense of impending doom, syncope or vomiting Treatment prior to arrival: none Review of Systems Const: Denies: fever(s), chills, fatigue, malaise or diaphoresis ENMT: Denies: throat pain, ear or mastoid pain, nasal discharge or nasal congestion Card: Reports: orthopnea; Denies: chest pain, palpitations, lightheadedness or syncope Resp: Denies: hemoptysis or chest congestion GI: Denies: abdominal pain, nausea or vomiting : Denies: flank pain, dysuria, urinary frequency or urinary urgency Musc: Denies: extremity pain Skin/Breast: Denies: rash or pruritus Neuro: Denies: dizziness Endo: Denies: polyuria or polydipsia PFSH ED PFSH: Medical History Abdominal ascites history of intermittent paracentesis, transudative fluid; prior work up has included negative biopsy, ceruloplasmin level normal, low iron, high ferritin, normal TIBC, negative HIV, hepatitis panel negative, JESÚS/SCL 70/double-stranded DNA antibodies negative, Alpha-fetoprotein level unremarkable, nonalcoholic by history, has hepatomegaly and splenomegaly Anemia chronic kidney disease Anxiety Arteriovenous fistula for hemodialysis in place, secondary Atherosclerosis of coronary artery Stent and balloon angioplasty to proximal 1 OM branch Chronic abdominal pain Chronic respiratory failure on home oxygen and bipap Congestive heart failure preserved ejection fraction COPD (chronic obstructive pulmonary disease) COVID 05/25 Degenerative disc disease, lumbar Depression Epididymitis 06/2022 ESRD on dialysis Generalized anxiety disorder with panic attacks History of cardiovascular stress test 07/2022 at [facility] perfusion imaging probably normal, no reversible defects, small fixed defect in apical anterior wall, EF 54%, nonischemic response to stress by EKG criteria History of coronary angiogram 11/2021 - patent stent History of home oxygen therapy Hypertension uncontrolled Hypertensive emergency recurrent episodes Hypertensive urgency Inguinal hernia Low back pain Nicotine dependence, cigarettes, with other nicotine-induced disorders Patient under care of multiple providers Pulmonary embolism 09/21 CTA inconclusive for very tiny peripheral LEFT lower lobe pulmonary artery sub segmental emboli versus poor opacification. Pulmonary hypertension Umbilical hernia Urethral stricture Uses bilevel positive airway pressure (BPAP) ventilation at home Surgical History H/O hand surgery Amputation right 2&3 fingers 2016 History of adenoidectomy Stented coronary artery Family History Other Hypertension Social History Smoking and tobacco status: current every day smoker cigarettes Packs smoked per day: 1.5 Years cigarettes smoked: 21 [ Other cigarette details: started age 20, currently 0.5ppd ] Alcohol intake: never Substance/Drug Use: never Number of children: 3 Current occupational status: disabled Do you think of yourself as: Straight/Heterosexual Physical Exam Const: GENERAL APPEARANCE: cooperative ORIENTATION/CONSCIOUSNESS: Yes awake, Yes oriented to person, Yes oriented to place and Yes oriented to time HENMT: COMMON NORMALS: normocephalic, atraumatic and hearing grossly normal bilaterally HEAD & SCALP: normocephalic and atraumatic Resp: COMMON NORMALS: normal respiratory effort, No retractions, No use of accessory muscles and clear to auscultation bilaterally AUSCULTATION: clear to auscultation bilaterally Cardio: COMMON NORMALS: regular rate, regular rhythm and No murmurs present (Cardio) RATE: regular rate RHYTHM: regular rhythm GI: COMMON NORMALS: No hepatosplenomegaly present INSPECTION: Yes abdominal distension AUSCULTATION: Yes normoactive bowel sounds PALPATION: No Tenderness to palpation present (GI), No Guarding due to palpation present (GI) and Yes No hepatosplenomegaly present Back/Pelvis: OTHER: Right inguinal hernia easily reducible Extremity: COMMON NORMALS: normal to inspection, capillary refill normal, no clubbing, cyanosis or edema, no calf tenderness and no pedal edema Neuro: SENSORIUM/ORIENTATION: Yes oriented to person, Yes oriented to place and Yes oriented to time Skin: COMMON NORMALS: no rashes or lesions noted GENERAL SKIN EXAM: no rashes or lesions noted Course Vital Signs: Vital signs: Vital Signs Temperature 98.2 F 08/25/22 06:43 Pulse Rate 68 08/25/22 08:18 Respiratory Rate 18 08/25/22 08:18 Blood Pressure 183/116 08/25/22 08:18 Pulse Oximetry 99 08/25/22 08:18 Oxygen Delivery Me thod Nasal Cannula 08/25/22 06:43 Oxygen Flow Rate 4 08/25/22 06:43 MDM - SOB/Dyspnea Medical Decision Making Patient stable at his baseline. His blood pressure is chronically markedly elevated we did give him all of his regular blood pressure medications additionally gave him IV hydralazine and labetalol prior to discharge. His oxygen sat is normalized on 4 L his biggest injury now is his dialysis. Reviewed findings with the patient we will discharge patient from here to dialysis to complete his usual run Medical Records I reviewed the patient's medical records. Lab Data I reviewed the patient's lab results. 08/25/22 06:46 08/25/22 06:46 Labs/Radiology: Radiology Impressions Chest X-Ray 08/25/22 06:50 IMPRESSION: 1. Chronic interstitial changes noted. No consolidating infiltrates. 2. Cardiac enlargement unchanged. Laboratory Results WBC 8.2 10^3/uL (4.0-10.0) 08/25/22 06:46 RBC 2.57 10^6/uL (4.1-5.3) L 08/25/22 06:46 Hgb 7.5 g/dL (11.7-16.6) L 08/25/22 06:46 Hct 24.2 % (42.0-52.0) L 08/25/22 06:46 MCV 94.2 fl (80-94) H 08/25/22 06:46 MCH 29.2 pg (28.0-34.0) 08/25/22 06:46 MCHC 31.0 g/dL (30.0-36.0) 08/25/22 06:46 RDW 17.1 % (12.1-15.1) H 08/25/22 06:46 Plt Count 242 10^3/cmm (130-400) 08/25/22 06:46 MPV 9.8 fL (7.4-10.4) 08/25/22 06:46 Neut % (Auto) 80.9 % 08/25/22 06:46 Lymph % (Auto) 7.8 % 08/25/22 06:46 [place] % (Auto) 3.9 % 08/25/22 06:46 Eos % (Auto) 6.2 % 08/25/22 06:46 Baso % (Auto) 1.0 % 08/25/22 06:46 Neut # (Auto) 6.66 10^3/uL (1.8-7.7) 08/25/22 06:46 Lymph # (Auto) 0.6 10^3/uL (0.8-4.8) L 08/25/22 06:46 [place] # (Auto) 0.3 10^3/uL (0.2-0.9) 08/25/22 06:46 Eos # (Auto) 0.5 10^3/uL (0.0-0.8) 08/25/22 06:46 Baso # (Auto) 0.1 10^3/uL (0.0-0.1) 08/25/22 06:46 Nucleated RBC % (auto) 0 % 08/25/22 06:46 Nucleated RBCs # 0.0 /100WBC 08/25/22 06:46 PT 16.40 SECONDS (12.1-14.9) H 08/25/22 06:46 INR 1.27 (0.8-1.2) H 08/25/22 06:46 APTT 36.6 SECONDS (23.9-36.7) 08/25/22 06:46 Specimen Type Arterial 08/25/22 07:13 Sample Site Radial, right 08/25/22 07:13 ABG pH 7.46 (7.35-7.45) H 08/25/22 07:13 ABG pCO2 44.6 mmHg (35-45) 08/25/22 07:13 ABG pO2 60.7 mmHg (80.0-100.0) L 08/25/22 07:13 ABG HCO3 31.6 mmol/L (22-26) H 08/25/22 07:13 ABG O2 Saturation 93.1 08/25/22 07:13 ABG Base Excess 7.0 mmol/L (-2.0-2.0) H 08/25/22 07:13 Alexei Test Pos 08/25/22 07:13 A-a O2 Gradient 22.3 mmHg (5-10) H 08/25/22 07:13 Hematocrit 23.1 % (42-52) L 08/25/22 07:13 Hgb O2 Saturation 88.8 % (95-100) L 08/25/22 07:13 Carboxyhemoglobin 3.6 %THgb (0.4-20.1) 08/25/22 07:13 Methemoglobin 1.0 % (0.4-1.5) 08/25/22 07:13 Total Hemoglobin 7.5 g/dL (14-18) L 08/25/22 07:13 Sodium 133.0 mmol/L (131-143) 08/25/22 07:13 Potassium 5.2 mmol/L (3.5-5.0) H 08/25/22 07:13 Glucose 97.0 mg/dL (70-115) 08/25/22 07:13 Ionized Calcium 1.2 mmol/L (1.1-1.4) 08/25/22 07:13 O2 Delivery Device Nc 08/25/22 07:13 O2 Liters/Min 5.0 % 08/25/22 07:13 FiO2 40.0 % 08/25/22 07:13 Tube Sorter ID Amh 08/25/22 07:13 Sodium 132 mmol/L (136-145) L 08/25/22 06:46 Potassium 5.4 mmol/L (3.5-5.1) H 08/25/22 06:46 Chloride 90 mmol/L (98-107) L 08/25/22 06:46 Carbon Dioxide 29 mmol/L (22-29) 08/25/22 06:46 Anion Gap 18.4 (5-19) 08/25/22 06:46 BUN 40 mg/dL (6-20) H 08/25/22 06:46 Creatinine 8.5 mg/dL (0.7-1.2) H* 08/25/22 06:46 GFR Calculation 7.0 mL/min (90-130) L 08/25/22 06:46 Glucose 94 mg/dL (65-115) 08/25/22 06:46 Calculated Osmolality 284 mOsm/kg (285-295) L 08/25/22 06:46 Calcium 9.5 mg/dL (8.5-10.5) 08/25/22 06:46 Total Bilirubin 0.5 mg/dL (0.15-1.2) 08/25/22 06:46 AST 9 U/L (0-40) 08/25/22 06:46 ALT < 5 U/L (0-41) 08/25/22 06:46 Alkaline Phosphatase 92 U/L (40-130) 08/25/22 06:46 Total Protein 7.0 g/dL (6.6-8.7) 08/25/22 06:46 Albumin 3.7 g/dL (3.5-5.2) 08/25/22 06:46 Globulin 3.3 g/dL (1.3-4.6) 08/25/22 06:46 Discharge Plan Discharge Patient Disposition: Home Clinical Impression: ESRD on dialysis, Hypertension, Anemia, Hernia, inguinal, right Condition: Stable Prescriptions: No Action clonazepam 0.5 mg tablet 0.5 mg PO BEDTIME Qty: 30 2RF clonidine HCl 0.3 mg tablet 0.3 mg PO TID Qty: 90 2RF tizanidine 4 mg tablet 4 mg PO Q8H PRN (Reason: muscle spasticity) Qty: 60 2RF Incruse Ellipta 62.5 mcg/actuation blister with device 1 inh INHALATION DAILY Qty: 30 2RF quetiapine 25 mg tablet 25 mg PO DAILY Qty: 90 0RF cyclobenzaprine 10 mg tablet 10 mg PO Q12H PRN (Reason: muscle spasm) Qty: 30 2RF nitroglycerin 0.4 mg tablet, sublingual 0.4 mg SUBLINGUAL Q5M PRN (Reason: Chest Pain) Qty: 30 5RF Rx Instructions: do not exceed 3 doses per episode clopidogrel 75 mg tablet 75 mg PO DAILY Qty: 90 3RF (DME) DME - BIPAP See Rx Instructions .Route .MEDSUPPLY Qty: 1 0RF Rx Instructions: Inspiratory Pressure: 16mmHg Expiratory Pressure: 8 mmHg Will need oxygen bled in to the machine to maintain sats >/= 90%. (DME) DME - Oxygen See Rx Instructions .Route .MEDSUPPLY Qty: 1 0RF Rx Instructions: Supplemental Oxygen bled into BIPAP at 2-3L to maintain oxygen sats at >/= 90%. Auryxia 210 mg iron Tablet 420 mg PO TID Rx Instructions: administer with a meal minoxidil 2.5 mg Tablet 2.5 mg PO BID aspirin 81 mg tablet,delayed release (DR/EC) 81 mg PO DAILY amlodipine 10 mg tablet 10 mg PO BEDTIME pantoprazole 40 mg tablet,delayed release (DR/EC) 40 mg PO DAILY albuterol sulfate 90 mcg/actuation HFA aerosol inhaler 2 puff inhalation Q6H PRN (Reason: Shortness Of Breath Or Wheezing) polyethylene glycol 3350 [Miralax] 17 gram Powder In Packet 17 g PO DAILY Eliquis 5 mg Tablet 2.5 mg PO BID isosorbide mononitrate 60 mg Tablet Extended Release 24 Hr 60 mg PO BID 30 Days Qty: 60 0RF doxazosin 4 mg Tablet 4 mg PO DAILY 30 Days Qty: 30 0RF hydralazine 50 mg Tablet 50 mg PO TID 30 Days Qty: 90 0RF cyanocobalamin (vitamin B-12) 1,000 mcg capsule 1,000 mcg PO DAILY Qty: 30 0RF ferrous gluconate 324 mg (37.5 mg iron) tablet 324 mg PO BID Qty: 60 0RF carvedilol 6.25 mg tablet 12.5 mg PO BID 30 Days Qty: 120 0RF Discharge Orders: Discharge ED (Routine); Ordered 08/25/22 Ordered By: Pato Rivera Referrals: Mla Peres, [Primary Care Provider] - Discharge Diet: Usual diet Discharge Activity: Resume usual activity Patient Instructions: Opioid Safety, Pain Management Activity Restrictions/Additional Instructions: You were seen today for shortness of breath. You are satting in the upper 90s on your usual 4 L by nasal cannula. Lab abnormalities are consistent with your known underlying kidney disease. Recommend that we discharge her from the emergency room to dialysis to complete your usual scheduled dialysis. Coding Level of Care Code ED Legal Paraprofessional for Cristi Diane
[2022-08-25 06:56] LABS: Basophils # 0.1 10^3/uL (0.0-0.1); Eosinophils # 0.5 10^3/uL (0.0-0.8); Eosinophils % 6.2 %; Hematocrit 24.2 % (42.0-52.0); Hemoglobin 7.5 g/dL (11.7-16.6); Lymphocytes # 0.6 10^3/uL (0.8-4.8); Lymphocytes % 7.8 %; Mean Corpuscular Hemoglobin 29.2 pg (28.0-34.0); Mean Corpuscular Volume 94.2 fl (80-94); Mean Platelet Volume 9.8 fL (7.4-10.4); Monocytes # 0.3 10^3/uL (0.2-0.9); Monocytes % 3.9 %; Neutrophils # 6.66 10^3/uL (1.8-7.7); Neutrophils % 80.9 %; Nucleated Red Blood Cells % 0 %; Platelet Count 242 10^3/cmm (130-400); Red Blood Count 2.57 10^6/uL (4.1-5.3); Red Cell Distribution Width 17.1 % (12.1-15.1); White Blood Count 8.2 10^3/uL (4.0-10.0)
[2022-08-25 07:09] LABS: Alanine Aminotransferase < 5 U/L (0-41); Albumin Level 3.7 g/dL (3.5-5.2); Alkaline Phosphatase 92 U/L (40-130); Anion Gap 18.4 (5-19); Aspartate Amino Transferase 9 U/L (0-40); Blood Urea Nitrogen 40 mg/dL (6-20); Calcium 9.5 mg/dL (8.5-10.5); Carbon Dioxide 29 mmol/L (22-29); Chloride 90 mmol/L (98-107); Globulin 3.3 g/dL (1.3-4.6); Glucose 94 mg/dL (65-115); Osmolality Calculated 284 mOsm/kg (285-295); Potassium 5.4 mmol/L (3.5-5.1); Sodium 132 mmol/L (136-145); Total Bilirubin 0.5 mg/dL (0.15-1.2)
[2022-08-25] MEDS: isosorbide mononitrate 20 mg Tablet 60 MG PO (07:13)
[2022-08-25] MEDS: hyDRALAzine 25 mg Tablet 50 MG PO (07:13)
[2022-08-25 07:14] VITALS: BP 182/123
[2022-08-25] MEDS: cloNIDine 0.1 mg Tablet 0.3 MG PO (07:14)
[2022-08-25] MEDS: carvedilol 12.5 mg Tablet PO (07:14)
[2022-08-25 07:24] LABS: ABG PCO2 44.6 mmHg (35-45); ABG PH Result 7.46 (7.35-7.45); Alveolar-Arterial Oxygen Gradi 22.3 mmHg (5-10); Arterial Blood Gas Hematocrit 23.1 % (42-52); Blood Gas Allen Test Pos; Blood Gas Operator Identificat AMH; Blood Gas Sample Site Radial, right; Blood Gas Sample Type Arterial; Carboxyhemoglobin 3.6 %THgb (0.4-20.1); HCO3 ABG 31.6 mmol/L (22-26); HGB O2 Sat 88.8 % (95-100); Ionized Calcium Level - ABG 1.2 mmol/L (1.1-1.4); Oxygen Device NC; Oxygen Saturation ABG 93.1; PO2 ABG 60.7 mmHg (80.0-100.0); Potassium Level - ABG 5.2 mmol/L (3.5-5.0); Total Hemoglobin 7.5 g/dL (14-18)
--- NOTE | 2022-08-25 07:36 | PC.NURSE ---
WHILE AT BEDSIDE PT IS SITTING IN BED. PT IS REQUESTING PAIN MEDICATION NOTIFIED DR. ALLEN.
[2022-08-25 07:41] LABS: INR 1.27 (0.8-1.2)
[2022-08-25 07:42] LABS: Partial Thromboplastin Time 36.6 SECONDS (23.9-36.7)
--- NOTE | 2022-08-25 08:06 | PC.NURSE ---
NOTIFIED DR. ALLEN OF BP OF 202/123. VO FOR HYDRALAZINE 20MG IVP AND LABETALOL 10 MG IVP AND CONTINUE WITH DC.
[2022-08-25] MEDS: HYDROcodone-acetaminophen 5-325 mg Tablet 2 TAB PO (08:08)
[2022-08-25] MEDS: hyDRALAzine 20 mg/mL INJ 1 mL IVP (08:11)
[2022-08-25] MEDS: labetalol 5 mg/mL SDV 20mL 10 MG IVP (08:12)
[2022-08-25 08:18] VITALS: BP 183/116; PULSE 68; RESP 18; O2SAT 99
== END 2022-08-25 09:36 | disposition home or self-care (01) ==
PROVIDERS: Emergency Provider Family Medicine; PCP Family Medicine
DX: I13.2 Hypertensive heart and chronic kidney disease with heart failure and with stage 5 chronic kidney disease, or end stage renal disease (principal); N18.6 End stage renal disease; I50.9 Heart failure, unspecified; Z99.2 Dependence on renal dialysis; I25.10 Atherosclerotic heart disease of native coronary artery without angina pectoris; J44.9 Chronic obstructive pulmonary disease, unspecified; F17.210 Nicotine dependence, cigarettes, uncomplicated; D64.9 Anemia, unspecified; K40.90 Unilateral inguinal hernia, without obstruction or gangrene, not specified as recurrent; Z79.02 Long term (current) use of antithrombotics/antiplatelets; Z79.82 Long term (current) use of aspirin; Z79.01 Long term (current) use of anticoagulants
CPT/HCPCS: 36600; 71045; 80051; 80053; 82330; 82805; 85025; 85610; 85730; 93005; 96374; 96375; 99285; J0360; J3490

== ENCOUNTER 2022-10-01 10:12 | Inpatient (IN) | payer MEDICARE, MEDICAID, SELFPAY ==
[2022-10-01] VITALS (110 sets, daily range): BP systolic 134–216; BP diastolic 59–139; PULSE 75–898; RESP 10–28; TEMP 36.6–37.3; O2SAT 79–100; BMI 22.4
--- NOTE | 2022-10-01 10:26 | XR_ITS ---
WS: [id number] Exam: XR chest 1V portable [id number] Date/Time of Exam: 10/01/2022 10:30 AM Reason For Exam: dyspnea Comparison 08/25/2022. There are patchy airspace infiltrates in the bilateral lower lung zones suspicious for pneumonia. The re are extensive superimposed chronic interstitial changes throughout both lungs. Cardiac enlargement noted unchanged. No pleural effusions or pneumothorax. The mediastinum is normal in contour. Regiona l bony structures are intact. Single old right rib fracture. XR/XR chest 1V portable [id number] IMPRESSION: 1. Areas of the patchy airspace infiltrate in the bilateral lower lung zone toney picious for active pneumonia. 2. Extensive superimposed chronic interstitial changes throughout both lungs. 3. Significant cardiac enlargement unchanged.
[2022-10-01 10:47] LABS: ABG PCO2 51.2 mmHg (35-45); Alveolar-Arterial Oxygen Gradi 26.6 mmHg (5-10); Arterial Blood Gas Hematocrit 25.4 % (42-52); Blood Gas Allen Test Pos; Blood Gas Operator Identificat MONRO; Blood Gas Sample Site Radial, right; Blood Gas Sample Type Arterial; HCO3 ABG 31.6 mmol/L (22-26); HGB O2 Sat 83.2 % (95-100); Ionized Calcium Level - ABG 1.2 mmol/L (1.1-1.4); Methemoglobin 0.7 % (0.4-1.5); Oxygen Device NC; Oxygen Saturation ABG 87.3; PO2 ABG 54.1 mmHg (80.0-100.0); Potassium Level - ABG 4.8 mmol/L (3.5-5.0); Total Hemoglobin 8.3 g/dL (14-18)
--- NOTE | 2022-10-01 10:47 | ED_ITS ---
HPI - SOB/Dyspnea General: Chief Complaint: Shortness of Breath/Dyspnea Stated Complaint: low 02 Time Seen by Provider: 10/01/22 10:25 History of Present Illness: HPI Narrative: Patient arrived with complaints of dyspnea. Patient was satting in the 60s on room air upon arrival. Patient should normally be on 4 L of oxygen at all times. Patient was seen over at [facility] for chronic pain and when released he was on 4 L of oxygen but I guess his oxygen ran out before he can make at home. Patient is a dialysis patient and should have dialysis today. MD elicited complaint: shortness of breath Pertinent past history: COPD and asthma Timing: constant Severity: similar to previous episodes Exacerbating factors: exertion Relieving factors: oxygen Known history of: COPD Treatment prior to arrival: none Review of Systems General: Reports: 10 or more systems reviewed and unremarkable except in HPI and below PFSH ED PFSH: Medical History Abdominal ascites history of intermittent paracentesis, transudative fluid; prior work up has included negative biopsy, ceruloplasmin level normal, low iron, high ferritin, normal TIBC, negative HIV, hepatitis panel negative, JESÚS/SCL 70/double-stranded DNA antibodies negative, Alpha-fetoprotein level unremarkable, nonalcoholic by history, has hepatomegaly and splenomegaly Anemia chronic kidney disease Anxiety Arteriovenous fistula for hemodialysis in place, secondary Atherosclerosis of coronary artery Stent and balloon angioplasty to proximal 1 OM branch Chronic abdominal pain Chronic respiratory failure on home oxygen and bipap Congestive heart failure preserved ejection fraction COPD (chronic obstructive pulmonary disease) COVID 05/25 Degenerative disc disease, lumbar Depression Epididymitis 06/2022 ESRD on dialysis Generalized anxiety disorder with panic attacks History of cardiovascular stress test 07/2022 at [facility] perfusion imaging probably normal, no reversible defects, small fixed defect in apical anterior wall, EF 54%, nonischemic response to stress by EKG criteria History of coronary angiogram 11/2021 - patent stent History of home oxygen therapy Hypertension uncontrolled Hypertensive emergency recurrent episodes Hypertensive urgency Inguinal hernia Low back pain Nicotine dependence, cigarettes, with other nicotine-induced disorders Patient under care of multiple providers Pulmonary embolism 09/21 CTA inconclusive for very tiny peripheral LEFT lower lobe pulmonary artery sub segmental emboli versus poor opacification. Pulmonary hypertension Umbilical hernia Urethral stricture Uses bilevel positive airway pressure (BPAP) ventilation at home Surgical History H/O hand surgery Amputation right 2&3 fingers 2017 History of adenoidectomy Stented coronary artery Family History Other Hypertension Social History Smoking and tobacco status: current every day smoker cigarettes Packs smoked per day: 1.5 Years cigarettes smoked: 21 [ Other cigarette details: started age 20, currently 0.5ppd ] Alcohol intake: never Substance/Drug Use: never Number of children: 3 Current occupational status: disabled Do you think of yourself as: Straight/Heterosexual Physical Exam Const: COMMON NORMALS: average body habitus and alert GENERAL APPEARANCE: disheveled, ill appearing and appears older than stated age; not well kempt HENMT: COMMON NORMALS: normocephalic, atraumatic, hearing grossly normal bilaterally, external ears normal, Normal external nose present and moist oral mucous membranes HEAD & SCALP: normocephalic and atraumatic NOSE: Normal external nose present EXTERNAL EAR: Yes external ears normal Eye: COMMON NORMALS: Equal, round and reactive pupils present, EOMs intact bilaterally, conjunctivae normal and no scleral icterus CONJUNCTIVA: Yes conjunctivae normal PUPIL: Yes Equal, round and reactive pupils present Neck/C-Spine: COMMON NORMALS: full ROM, no lymphadenopathy, supple, no meningeal signs, no JVD and Thyroid normal THYROID: Thyroid normal Chest: COMMONS NORMALS: normal inspection of the chest and normal palpation of entire chest wall Resp: EFFORT & INSPECTION: Yes labored AUSCULTATION: rhonchi, wheezes and diminished lung sounds Cardio: COMMON NORMALS: no JVD, regular rate, regular rhythm, S1 normal heart sound present, S2 normal heart sound present, No gallops present (Cardio), No clicks present (Cardio), No murmurs present (Cardio) and No rub (Cardio) RATE: regular rate RHYTHM: regular rhythm HEART SOUNDS: S1 normal heart sound present and S2 normal heart sound present GI: COMMON NORMALS: Normal to inspection, nondistended, normoactive bowel sounds present, Soft to palpation, non-tender, No hepatosplenomegaly present, no masses and no bruits PALPATION: Yes Soft to palpation and Yes No hepatosplenomegaly present : COMMON NORMALS: Yes no CVA tenderness BLADDER/KIDNEY EXAM: Yes no CVA tenderness Back/Pelvis: COMMON NORMALS: no CVA tenderness Neuro: SENSORIUM/ORIENTATION: Yes alert MENINGEAL SIGNS: Yes no meningeal signs Psych: APPEARANCE: No well kempt Course Vital Signs: Vital signs: Vital Signs Temperature 99.2 F 10/01/22 10:25 Pulse Rate 93 10/01/22 14:10 Respiratory Rate 19 H 10/01/22 14:10 Blood Pressure 183/113 10/01/22 14:10 Pulse Oximetry 91 10/01/22 14:10 Oxygen Delivery Me thod BiPAP 10/01/22 13:25 Oxygen Flow Rate 15 10/01/22 10:29 Fraction of Inspir ed Oxygen 40 10/01/22 13:18 MDM - SOB/Dyspnea Medical Decision Making Patient presents to the ER with O2 sat of 60%. Patient ran out of oxygen on the way here to dialysis. Patient should be on 4 L at all times. Work-up was obtained which showed he is in chronic renal failure with a BUN and creatinine of 37 and 7.5. His white count was normal at 6.7 chest x-ray showed patchy airspace infiltrate suggestive of pneumonia. Patient was placed on nasal cannula at 6 L and only improved to 79% therefore he was placed on BiPAP and improved to 96%. Dr. Gonzalez was consulted who agreed that patient needed further evaluation and treatment patient was given azithromycin and Rocephin IV and will be admitted observation to [facility]. Differential Diagnosis Likely acute exacerbation of chronic obstructive airways disease; Unlikely congestive heart failure, community acquired pneumonia, asthma with exacerbation or pulmonary embolism Medical Records I reviewed the patient's medical records. Lab Data I reviewed the patient's lab results. 10/01/22 10:30 10/01/22 10:30 Labs/Radiology: Radiology Impressions Chest X-Ray 10/01/22 10:26 IMPRESSION: 1. Areas of the patchy airspace infiltrate in the bilateral lower lung zone suspicious for active pneumonia. 2. Extensive superimposed chronic interstitial changes throughout both lungs. 3. Significant cardiac enlargement unchanged. Laboratory Results WBC 6.7 10^3/uL (4.0-10.0) 10/01/22 10:30 RBC 2.72 10^6/uL (4.1-5.3) L 10/01/22 10:30 Hgb 7.7 g/dL (11.7-16.6) L 10/01/22 10:30 Hct 25.2 % (42.0-52.0) L 10/01/22 10:30 MCV 92.6 fl (80-94) 10/01/22 10:30 MCH 28.3 pg (28.0-34.0) 10/01/22 10:30 MCHC 30.6 g/dL (30.0-36.0) 10/01/22 10:30 RDW 17.8 % (12.1-15.1) H 10/01/22 10:30 Plt Count 181 10^3/cmm (130-400) 10/01/22 10:30 MPV 9.3 fL (7.4-10.4) 10/01/22 10:30 Neut % (Auto) 78.5 % 10/01/22 10:30 Lymph % (Auto) 8.6 % 10/01/22 10:30 Sebastian % (Auto) 5.5 % 10/01/22 10:30 Eos % (Auto) 6.1 % 10/01/22 10:30 Baso % (Auto) 0.9 % 10/01/22 10:30 Neut # (Auto) 5.26 10^3/uL (1.8-7.7) 10/01/22 10:30 Lymph # (Auto) 0.6 10^3/uL (0.8-4.8) L 10/01/22 10:30 Sebastian # (Auto) 0.4 10^3/uL (0.2-0.9) 10/01/22 10:30 Eos # (Auto) 0.4 10^3/uL (0.0-0.8) 10/01/22 10:30 Baso # (Auto) 0.1 10^3/uL (0.0-0.1) 10/01/22 10:30 Nucleated RBC % (auto) 0 % 10/01/22 10:30 Nucleated RBCs # 0.0 /100WBC 10/01/22 10:30 PT 16.70 SECONDS (12.1-14.9) H 10/01/22 10:30 INR 1.31 (0.8-1.2) H 10/01/22 10:30 Specimen Type Arterial 10/01/22 10:34 Sample Site Radial, right 10/01/22 10:34 ABG pH 7.40 (7.35-7.45) 10/01/22 10:34 ABG pCO2 51.2 mmHg (35-45) H 10/01/22 10:34 ABG pO2 54.1 mmHg (80.0-100.0) L 10/01/22 10:34 ABG HCO3 31.6 mmol/L (22-26) H 10/01/22 10:34 ABG O2 Saturation 87.3 10/01/22 10:34 ABG Base Excess 6.0 mmol/L (-2.0-2.0) H 10/01/22 10:34 Alexei Test Pos 10/01/22 10:34 A-a O2 Gradient 26.6 mmHg (5-10) H 10/01/22 10:34 Hematocrit 25.4 % (42-52) L 10/01/22 10:34 Hgb O2 Saturation 83.2 % (95-100) L 10/01/22 10:34 Carboxyhemoglobin 4.0 %THgb (0.4-20.1) 10/01/22 10:34 Methemoglobin 0.7 % (0.4-1.5) 10/01/22 10:34 Total Hemoglobin 8.3 g/dL (14-18) L 10/01/22 10:34 Sodium 134.0 mmol/L (131-143) 10/01/22 10:34 Potassium 4.8 mmol/L (3.5-5.0) 10/01/22 10:34 Glucose 138.0 mg/dL (70-115) H 10/01/22 10:34 Ionized Calcium 1.2 mmol/L (1.1-1.4) 10/01/22 10:34 O2 Delivery Device Nc 10/01/22 10:34 O2 Liters/Min 6.0 % 10/01/22 10:34 FiO2 45.0 % 10/01/22 10:34 Drupal Developer ID Monro 10/01/22 10:34 Sodium 133 mmol/L (136-145) L 10/01/22 10:30 Potassium 5.1 mmol/L (3.5-5.1) 10/01/22 10:30 Chloride 91 mmol/L (98-107) L 10/01/22 10:30 Carbon Dioxide 29 mmol/L (22-29) 10/01/22 10:30 Anion Gap 18.1 (5-19) 10/01/22 10:30 BUN 37 mg/dL (6-20) H 10/01/22 10:30 Creatinine 7.5 mg/dL (0.7-1.2) H* 10/01/22 10:30 GFR Calculation 8.1 mL/min (90-130) L 10/01/22 10:30 Glucose 153 mg/dL (65-115) H 10/01/22 10:30 Calculated Osmolality 288 mOsm/kg (285-295) 10/01/22 10:30 Lactic Acid 0.9 mmol/L (0.5-2.2) 10/01/22 11:14 Calcium 9.4 mg/dL (8.5-10.5) 10/01/22 10:30 Phosphorus 7.0 mg/dL (2.5-4.5) H 10/01/22 10:30 Magnesium 2.1 mg/dL (1.7-2.3) 10/01/22 10:30 Total Bilirubin 0.9 mg/dL (0.15-1.2) 10/01/22 10:30 AST 12 U/L (0-40) 10/01/22 10:30 ALT < 5 U/L (0-41) 10/01/22 10:30 Alkaline Phosphatase 110 U/L (40-130) 10/01/22 10:30 Total Protein 7.6 g/dL (6.6-8.7) 10/01/22 10:30 Albumin 4.1 g/dL (3.5-5.2) 10/01/22 10:30 Globulin 3.5 g/dL (1.3-4.6) 10/01/22 10:30 Procalcitonin 0.44 ng/mL (0-0.5) 10/01/22 11:14 EKG Data EKG 1: I personally reviewed and interpreted this EKG as follows: EKG Interpretation Date: 10/01/22 EKG interpretation time: 10:49 Prior EKG tracings: not available for review Interpretation: EKG showed ventricular rate 98 bpm, VT interval 176, QRS duration 111, QTc of 405, sinus rhythm, possible left atrial enlargement, moderate intraventricular conduction delay. EKG 2: I personally reviewed and interpreted this EKG as follows: EKG Interpretation Date: 10/01/22 EKG interpretation time: 14:37 Prior EKG tracings: available for review Interpretation: EKG showed normal sinus rhythm with a ventricular rate of 85 bpm, VT interval 205, QRS duration 116, QTc 438, moderate intraventricular conduction delay, Discharge Plan Discharge Patient Disposition: Admitted As Inpatient Admit Provider: Bob Gonzalez Clinical Impression: End-stage renal disease on hemodialysis Community acquired pneumonia Qualifiers: Laterality: unspecified laterality Qualified Code(s): J18.9 - Pneumonia, unspecified organism Respiratory failure with hypoxia Qualifiers: Chronicity: acute on chronic Qualified Code(s): J96.21 - Acute and chronic respiratory failure with hypoxia Condition: Stable Coding Level of Care Code ED Performance Improvement Specialist for Cristi Diane
--- NOTE | 2022-10-01 10:49 | ECG_ITS ---
[facility] Test Date: 2022-10-01 Pat Name: Mal Gibbs Department: Room: Gender: Male [employer] Operator: : 1980 Requested By: Colton Child Order Number: [id number] Rajan MD: Rosalia Dia M.D. Measurements Intervals [place] Rate: 98 P: 52 CT: 176 QRS: 68 QRSD: 111 T: 96 QT: 350 QTc: 448 Interpretive Statements SINUS RHYTHM POSSIBLE LEFT ATRIAL ENLARGEMENT [-0.1mV P-WAVE IN V1/V2] MODERATE INTRAVENTRICULAR CONDUCTION DELAY [110+ ms QRS DURATION] Compared to ECG 08/25/2022 06:45:28 Intraventricular conduction delay now present First degree AV block no longer present Prolonged QT interval no longer present Electronically Signed On 10-02-2022 7:23:55 CDT by Rosalia Dia M.D. [id number]
[2022-10-01 10:57] LABS: Basophils # 0.1 10^3/uL (0.0-0.1); Basophils % 0.9 %; Eosinophils # 0.4 10^3/uL (0.0-0.8); Eosinophils % 6.1 %; Hematocrit 25.2 % (42.0-52.0); Hemoglobin 7.7 g/dL (11.7-16.6); Lymphocytes # 0.6 10^3/uL (0.8-4.8); Lymphocytes % 8.6 %; Mean Corpuscular HGB Conc 30.6 g/dL (30.0-36.0); Mean Corpuscular Hemoglobin 28.3 pg (28.0-34.0); Mean Corpuscular Volume 92.6 fl (80-94); Mean Platelet Volume 9.3 fL (7.4-10.4); Monocytes # 0.4 10^3/uL (0.2-0.9); Monocytes % 5.5 %; Neutrophils # 5.26 10^3/uL (1.8-7.7); Neutrophils % 78.5 %; Nucleated Red Blood Cells % 0 %; Platelet Count 181 10^3/cmm (130-400); Red Blood Count 2.72 10^6/uL (4.1-5.3); Red Cell Distribution Width 17.8 % (12.1-15.1); White Blood Count 6.7 10^3/uL (4.0-10.0)
[2022-10-01] MEDS: ipratropium-albuterol 3 mL Neb INHALATION ×2 (11:01→19:54)
[2022-10-01 11:10] LABS: INR 1.31 (0.8-1.2)
[2022-10-01 11:18] LABS: Alanine Aminotransferase < 5 U/L (0-41); Albumin Level 4.1 g/dL (3.5-5.2); Alkaline Phosphatase 110 U/L (40-130); Anion Gap 18.1 (5-19); Aspartate Amino Transferase 12 U/L (0-40); Blood Urea Nitrogen 37 mg/dL (6-20); Calcium 9.4 mg/dL (8.5-10.5); Carbon Dioxide 29 mmol/L (22-29); Chloride 91 mmol/L (98-107); Globulin 3.5 g/dL (1.3-4.6); Glomerular Filtration Rate 8.1 mL/min (90-130); Glucose 153 mg/dL (65-115); Magnesium 2.1 mg/dL (1.7-2.3); Osmolality Calculated 288 mOsm/kg (285-295); Potassium 5.1 mmol/L (3.5-5.1); Sodium 133 mmol/L (136-145); Total Bilirubin 0.9 mg/dL (0.15-1.2); Total Protein 7.6 g/dL (6.6-8.7)
[2022-10-01 11:56] LABS: Lactic Sepsis W/Reflex 0.9 mmol/L (0.5-2.2)
[2022-10-01 12:04] LABS: Procalcitonin 0.44 ng/mL (0-0.5)
[2022-10-01] MEDS: cefTRIAXone 1,000 MG in sodium chloride 0.9% (plus) 50 ML 100 MG IV (13:12)
--- NOTE | 2022-10-01 13:44 | PC.PHAR ---
PT UNABLE TO VERIFY MEDICATIONS- MEDICATIONS ARE VERIFIED USING EXTERNAL MED LIST LAST FILLED- PLEASE SEE NOTE ON PLAVIX IN PTS HOME MED LIST
--- NOTE | 2022-10-01 13:46 | PM.HP ---
Providers/Chief Complaint Primary Care Provider: Mal Peres DO Chief Complaint: low 02 History of Present Illness 42-year-old gentleman evaluated in ER due to dyspnea, hypoxia, reportedly had ran out of oxygen, on room air noted saturating in the 60s. Started on 6 L nasal cannula oxygen with saturation increasing up to 79%. Started on BiPAP. He is tolerating BiPAP. He is lethargic. With BiPAP acute up to 96%. Initially 50%, currently FiO2 40%. He was due for hemodialysis today but did not receive dialysis. He was initially seen at [place] [facility] for chronic pain, at the time of release from there was on 4 L of oxygen. Review of Systems General: Reports: ROS unobtainable due to mental status Medications/Allergies Home Medications Medication Instructions Recorded Confirmed Last Taken Type umeclidinium 62.5 mcg/actuation 1 inh inhalation DAILY #30 ea 08/06/21 10/01/22 07/24/22 Rx blister powder for inhalation (Incruse Ellipta) ferric citrate 210 mg iron tablet 420 mg PO TID 11/03/21 10/01/22 07/24/22 History (Auryxia) minoxidil 2.5 mg tablet 2.5 mg PO BID 11/22/21 10/01/22 07/24/22 History nitroglycerin 0.4 mg sublingual 0.4 mg sublingual Q5M PRN Chest 12/02/21 10/01/22 07/24/22 Rx tablet Pain #30 tabs clopidogrel 75 mg tablet 75 mg PO DAILY #90 tabs 01/28/22 10/01/22 07/20/22 Rx albuterol sulfate 90 mcg/actuation 2 puff inhalation Q6H PRN 02/21/22 10/01/22 07/24/22 History aerosol inhaler Shortness Of Breath Or Wheezing aspirin 81 mg tablet,delayed 81 mg PO DAILY 02/21/22 10/01/22 07/20/22 History release pantoprazole 40 mg tablet,delayed 40 mg PO DAILY 02/21/22 10/01/22 07/24/22 History release DME - BIPAP #1 ea 02/25/22 10/01/22 07/22/22 Rx DME - Oxygen #1 ea 02/25/22 10/01/22 07/24/22 Rx cyclobenzaprine 10 mg tablet 10 mg PO Q12H PRN muscle spasm #30 04/10/22 10/01/22 07/24/22 Rx tabs quetiapine 25 mg tablet 25 mg PO DAILY #90 tabs 04/10/22 10/01/22 07/24/22 Rx polyethylene glycol 3350 17 gram 17 g PO DAILY 06/09/22 10/01/22 07/24/22 History oral powder packet (Miralax) apixaban 5 mg tablet (Eliquis) 2.5 mg PO BID 07/27/22 10/01/22 Unknown History carvedilol 6.25 mg tablet 12.5 mg PO BID 30 days #120 tabs 08/07/22 10/01/22 Unknown Rx cyanocobalamin (vitamin B-12) 1,000 mcg PO DAILY #30 caps 08/07/22 10/01/22 Unknown Rx 1,000 mcg capsule ferrous gluconate 324 mg (37.5 mg 324 mg PO BID #60 tabs 08/07/22 10/01/22 Unknown Rx iron) tablet clonazepam 0.5 mg tablet 0.5 mg PO BEDTIME #30 tabs 08/20/22 10/01/22 Unknown Rx clonidine HCl 0.3 mg tablet 0.3 mg PO TID #90 tabs 08/20/22 10/01/22 Unknown Rx tizanidine 4 mg tablet 4 mg PO Q8H PRN muscle spasticity 08/20/22 10/01/22 Unknown Rx #60 tabs isosorbide mononitrate 120 mg 240 mg PO DAILY 10/01/22 10/01/22 Unknown History tablet,extended release 24 hr lorazepam 1 mg tablet 1 mg PO DAILY 10/01/22 10/01/22 Unknown History losartan 50 mg tablet 50 mg PO DAILY 10/01/22 10/01/22 Unknown History oxycodone 5 mg tablet 5 mg PO Q8H PRN Pain 10/01/22 10/01/22 Unknown History vit B,C-folic ac 800 mcg-zinc 12.5 1 tab PO DAILY 10/01/22 10/01/22 Unknown History mg-selen-D3 2,000 unit-vit E tablet (RenaPlex-D) Allergies Allergy/AdvReac Type Severity Reaction Status Date / Time nifedipine Allergy ALGY-Swell Verified 08/20/22 08:59 Lip/Tongue/Throat PFSH Acute PFSH: Medical History Abdominal ascites history of intermittent paracentesis, transudative fluid; prior work up has included negative biopsy, ceruloplasmin level normal, low iron, high ferritin, normal TIBC, negative HIV, hepatitis panel negative, JESÚS/SCL 70/double-stranded DNA antibodies negative, Alpha-fetoprotein level unremarkable, nonalcoholic by history, has hepatomegaly and splenomegaly Anemia chronic kidney disease Anxiety Arteriovenous fistula for hemodialysis in place, secondary Atherosclerosis of coronary artery Stent and balloon angioplasty to proximal 1 OM branch Chronic abdominal pain Chronic respiratory failure on home oxygen and bipap Congestive heart failure preserved ejection fraction COPD (chronic obstructive pulmonary disease) COVID 05/25 Degenerative disc disease, lumbar Depression Epididymitis 06/2022 ESRD on dialysis Generalized anxiety disorder with panic attacks History of cardiovascular stress test 07/2022 at [facility] perfusion imaging probably normal, no reversible defects, small fixed defect in apical anterior wall, EF 54%, nonischemic response to stress by EKG criteria History of coronary angiogram 11/2021 - patent stent History of home oxygen therapy Hypertension uncontrolled Hypertensive emergency recurrent episodes Hypertensive urgency Inguinal hernia Low back pain Nicotine dependence, cigarettes, with other nicotine-induced disorders Patient under care of multiple providers Pulmonary embolism 09/21 CTA inconclusive for very tiny peripheral LEFT lower lobe pulmonary artery sub segmental emboli versus poor opacification. Pulmonary hypertension Umbilical hernia Urethral stricture Uses bilevel positive airway pressure (BPAP) ventilation at home Surgical History H/O hand surgery Amputation right 2&3 fingers 2017 History of adenoidectomy Stented coronary artery Family History Other Hypertension Social History Smoking and tobacco status: current every day smoker cigarettes Packs smoked per day: 1.5 Years cigarettes smoked: 21 [ Other cigarette details: started age 20, currently 0.5ppd ] Alcohol intake: never Substance/Drug Use: never Number of children: 3 Current occupational status: disabled Do you think of yourself as: Straight/Heterosexual Vitals/I&O/Wt Last Vital Signs Temp 99.2 F 10/01/22 10:25 Pulse 898 H 10/01/22 13:18 Resp 19 H 10/01/22 13:05 BP 178/106 10/01/22 13:10 Pulse Ox 97 10/01/22 13:18 O2 Del Method BiPAP 10/01/22 13:05 O2 Flow Rate 15 10/01/22 10:29 FiO2 40 10/01/22 13:18 Weight last 48 hrs Weight 77.111 kg Physical Exam Resp: COMMON NORMALS: normal respiratory effort and clear to auscultation bilaterally AUSCULTATION: clear to auscultation bilaterally Cardio: COMMON NORMALS: regular rhythm, S1 normal heart sound present, S2 normal heart sound present and No murmurs present (Cardio) RHYTHM: regular rhythm HEART SOUNDS: S1 normal heart sound present and S2 normal heart sound present GI: COMMON NORMALS: Normal to inspection, nondistended, normoactive bowel sounds present, Soft to palpation and non-tender PALPATION: Yes Soft to palpation Extremity: COMMON NORMALS: no joint enlargement GENERAL: Yes edema Neuro: COMMON NORMALS: patient oriented x3 and moves all extremities Data 10/01/22 10:30 10/01/22 10:30 Micro: Microbiology 10/01/22 11:22 Blood Culture - Preliminary Blood SPECIMEN COLLECTED 10/01/22 11:14 Blood Culture - Preliminary Blood SPECIMEN COLLECTED A&P Assessment and plan (1) Respiratory failure with hypoxia: Hypoxic on presentation, despite going up to 6 L oxygen in the ER reportedly saturation still 79%. Was started on BiPAP which she is tolerating. Oxygenation so far has been improving, titrating down on FiO2. Currently decreased down to 40%. He does have lethargy. ABG on my interpretation with hypoxic respiratory failure, compensated hypercapnia. He is unable to provide any reliable history. Patchy areas of infiltrate noted on chest x-ray. Concern for possible pneumonia. Received ceftriaxone azithromycin, will continue for now. Also recently noted hospitalization with CHF, he is fluid overload currently, was not able to get his dialysis either. Cardiac enlargement on chest x-ray. He is hypertensive. Requesting nephrology consultation for hemodialysis. Incidentally noted also extensive superimposed chronic interstitial changes throughout both lungs. For now initial admission to intensive care unit given also lethargy. Continue to wean down FiO2, BiPAP support. Discussed with ER physician, RT Qualifiers: Chronicity: acute on chronic Qualified Code(s): J96.21 - Acute and chronic respiratory failure with hypoxia (2) Acute encephalopathy: Component possibly secondary to respiratory failure, but additionally does have chronic pain, has a number of pain medications and muscle relaxers on his home medication list, additionally was earlier today seen at ER in [place] for this reason, unknown whether he had received pain treatment or other medications there that could contribute to his lethargy although does not appear to be hypopneic. Requesting medical records. For now hold off his pain medications, muscle relaxers, monitor mentation. Initial admission to intensive care unit. Assess TSH. UDS. (3) Community acquired pneumonia: Ceftriaxone, azithromycin as above. Collect sputum culture, urine antigen panel, Legionella antigen as well. MRSA PCR back in August noted negative. Check respiratory viral panel. Droplet isolation for now. Additional treatment as above. Qualifiers: Laterality: unspecified laterality Qualified Code(s): J18.9 - Pneumonia, unspecified organism (4) End-stage renal disease on hemodialysis: Did not get his dialysis today. Appears fluid overloaded. Appreciate nephrology consultation. Discussed with nephrology. (5) Hypertension: Hypertensive emergency during recent admission. Today blood pressure fluctuating, not quite as high, but also getting up to 209/121 on 1 reading. Labetalol 10 mg x 1, additionally continue every 4 hours for blood pressures over 190 systolic or 110 diastolic. Continue home antihypertensives. (6) Congestive heart failure: Possible exacerbation of diastolic congestive heart failure. Appears fluid overloaded, with hypoxic aspiratory failure. Noted patchy airspace infiltrates. Hemodialysis. Monitor I&O, weights. Obtain troponin EKG series. Monitor on telemetry. Plan Chronic pain: Seen earlier today in ER in [place], currently with acute encephalopathy. Unclear if he received pain or other medication there that may be contributing to his lethargy. Requesting medical records. With acute encephalopathy hold his pain medications and muscle Roxicet at this time. Anemia CAD Other chronic problems Attestations Medical Necessity Statement*: Admission of over 2 midnights anticipated for assessment management of hypoxic respiratory failure, acute encephalopathy, pneumonia, possible CHF and gentleman with ESRD and additional comorbidities. Coding Level of Care Code Critical Care >/= 30 minutes Critical care time (in minutes): 30 The high probability of a clinically significant, sudden or life threatening deterioration, as referenced in this documentation, required my full and direct attention, intervention and personal management. The critical care time shown is in addition to time spent performing any reported separately billable procedures and includes the following: [x] Data and vital sign review and interpretation [x] Patient assessment, examination and intervention [x] Medication orders and management [x] Patient/Family updates as able [x] Care Coordination and Documentation. Diagnoses Respiratory failure with hypoxia J96.21 Chronicity: acute on chronic Acute encephalopathy G93.40 Community acquired pneumonia J18.9 Laterality: unspecified laterality End-stage renal disease on hemodialysis N18.6; Z99.2 Hypertension I10 Congestive heart failure I50.9
[2022-10-01] MEDS: azithromycin 500 MG in sodium chloride 0.9% 250 ML 250 MG IV (14:08)
[2022-10-01] MEDS: labetalol 5 mg/mL SDV 20mL 10 MG IVP ×2 (14:13→21:39)
--- NOTE | 2022-10-01 14:18 | ECG_ITS ---
[facility] Test Date: 2022-10-01 Pat Name: Mal Gibbs Department: Room: [facility] Gender: Male Director Emergency: : 1980 Requested By: Bob Gonzalez Order Number: [id number] Mohini MD: Rosalia Dia M.D. Measurements Intervals [place] Rate: 85 P: 51 SC: 205 QRS: 87 QRSD: 116 T: 56 QT: 395 QTc: 472 Interpretive Statements SINUS RHYTHM MODERATE INTRAVENTRICULAR CONDUCTION DELAY [110+ ms QRS DURATION] Compared to ECG 10/01/2022 10:49:16 No significant changes Electronically Signed On 10-02-2022 7:23:32 CDT by Rosalia Dia M.D. [id number]
[2022-10-01 15:51] LABS: Troponin(5th) Baseline 101 ng/L (0-15)
[2022-10-01 16:17] LABS: Hepatitis B Core AB, Total Non-Reactive (Nonreactive); Hepatitis B Surface AB 102.3 (11.5-1000); Hepatitis B Surface Antigen Non-Reactive (Nonreactive)
[2022-10-01] MEDS: morphine 4 mg/mL SDV 1 mL IVP (16:43)
[2022-10-01 17:09] LABS: Adenovirus Not Detected (NOT DETECT); Chlamydia Pneumoniae Not Detected (NOT DETECT); Coronavirus 229E,HKU1,NL63,OC4 Not Detected (NOT DETECT); Human Metapneumovirus Not Detected (NOT DETECT); Human Rhinovirus/Enterovirus Not Detected (NOT DETECT); Influenza A Not Detected (NOT DETECT); Influenza A H1 Not Detected (NOT DETECT); Influenza A H1-2009 Not Detected (NOT DETECT); Influenza A H3 Not Detected (NOT DETECT); Influenza B Not Detected (NOT DETECT); Mycoplasma Pneumoniae Not Detected (NOT DETECT); Parainfluenza Virus Type 1 Not Detected (NOT DETECT); Parainfluenza Virus Type 2 Not Detected (NOT DETECT); Parainfluenza Virus Type 3 Not Detected (NOT DETECT); Parainfluenza Virus Type 4 Not Detected (NOT DETECT); Respiratory Syncytial Virus A Not Detected (NOT DETECT); Respiratory Syncytial Virus B Not Detected (NOT DETECT); SARS-COV-2 Not Detected (NOT DETECT)
--- NOTE | 2022-10-01 17:29 | PC.NURSE ---
Transfer Note Patient transferred to ICU from ER via stretcher. Handoff received from JAGUAR Chris. Patient oriented to environment and equipment. Covering service notified. Orders reviewed and will continue to monitor. Patient transferred on 4LNC.
[2022-10-01] MEDS: heparin, porcine 1,000 unit/mL INJ 10 mL 1000 UNIT IV (17:35)
[2022-10-01] MEDS: epoetin alfa 1000 Unit/0.05 mL (non-esrd) 20000 UNIT SUBCUT (17:36)
--- NOTE | 2022-10-01 18:09 | ECG_ITS ---
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 Measurements Intervals [place] Rate: 86 P: 0 VA: 0 QRS: 80 QRSD: 113 T: 82 QT: 389 QTc: 467 Interpretive Statements Sinus rhythm MODERATE INTRAVENTRICULAR CONDUCTION DELAY [110+ ms QRS DURATION] Compared to ECG 10/01/2022 14:37:22 No changes Electronically Signed On 10-02-2022 17:39:29 CDT by Brijesh King M.D. [id number]
--- NOTE | 2022-10-01 18:49 | CTR_ITS ---
PROCEDURE INFORMATION: Exam: CT Abdomen And Pelvis Without Contrast Exam date and time: 10/02/2022 12:14 AM Age: 42 years old Clinical indication: Abdominal pain; Generalized; Prior surgery; Surgery date: 6+ months; Surgery type: Coronary stents; Patient HX: C/O diffuse abd pain. Chronic history of ascites due to renal failure. ; Additional info: Abdo pain TECHNIQUE: Imaging protocol: Computed tomography of the abdomen and pelvis without contrast. Radiation optimization: All CT scans at this facility use at least one of these dose optimization techniques: automated exposure control; mA and/or kV adjustment per patient size (includes targeted exams where dose is matched to clinical indication); or iterative reconstruction. REPORTING DATA: Count of CT and Cardiac NM exams in prior 12 months: This patient has received 8 known CTs and 0 known cardiac nuclear medicine studies in the 12 months prior to the current study. COMPARISON: CT abdomen pelvis wo con [id number] 07/27/2022 12:02 AM RADIATION DOSE METRICS: Total DLP (mGy-cm): 486.19 FINDINGS: Lungs: Mild pulmonary edema changes are noted. Bibasilar opacities may be atelectasis or pneumonia. Pleural spaces: Small bilateral pleural effusions are noted. Heart: The heart is moderately enlarged. Liver: The liver is enlarged and demonstrates a nodular surface contour. No mass is detected. Gallbladder and bile ducts: Normal. No calcified stones. No ductal dilation. Pancreas: Normal. No ductal dilation. Spleen: Normal. No splenomegaly. Adrenal glands: Normal. No mass. Kidneys and ureters: The kidneys are atrophic. Stomach and bowel: No intestinal obstruction. Diverticulosis coli is seen, without evidence of diverticulitis. Appendix: The appendix is normal. Intraperitoneal space: A large amount of ascites is present. No free air is seen. Vasculature: Unremarkable. No abdominal aortic aneurysm. Lymph nodes: Unremarkable. No enlarged lymph nodes. Urinary bladder: Unremarkable as visualized. Reproductive: Partially imaged large right scrotal hydrocele is appreciated. Bones/joints: Bilateral L5 spondylolysis and mild anterolisthesis of L5 over S1 are noted. No acute fracture is seen. Soft tissues: Mild anasarca is noted. A small umbilical hernia containing fluid is noted. CT/CT abdomen pelvis wo con [id number] IMPRESSION: 1. Bibasilar atelectasis versus pneumonia. 2. Mild pulmonary edema, mild cardiomegaly, and small bilateral pleural effusions. 3. Large volume ascites and mild anasarca. 4. Hepatomegaly and possible chronic liver disease. Correlate with LFTs. 5. Bilateral renal atrophy. 6. Diverticulosis coli. 7. Right scrotal hydrocele.
[2022-10-01 18:58] LABS: Troponin 5 2HR 96.94 ng/L (0-15)
[2022-10-01 18:59] LABS: Ammonia 24 umol/L (16-60)
[2022-10-01 19:01] LABS: Troponin 5 2HR Delta -4.06 ABS# (0-10)
[2022-10-01 19:11] LABS: Thyroid Stimulating Hormone 2.03 uIU/mL (0.27-4.20)
--- NOTE | 2022-10-01 19:58 | P.CONIM_ITS ---
Providers/Reason For Consult Consulting Physician/Specialty*: [facility]/Nephrology Reason for Consult*: ESRD Attending Physician: Bob Gonzalez Primary Care Provider: Mal Peres DO History of Present Illness History of Present Illness Mal Gibbs is a 42 year old male Past medical history of hypertension end-stage renal disease on hemodialysis Thursday, noncompliant with dialysis due to transportation issues per patient, chronic anemia CAD, COPD, CHF chronic low back pain, pulmonary hypertension, multiple prior admissions for hypertensive urgency under control for load presented to the emergency department today due to shortness of breath and hypoxia. He was noted to be saturating in the 60s in the ED and was placed on BiPAP and transferred to ICU. Patient due for his hemodialysis today. Lab data is significant for hemoglobin of 7.7, potassium of 5.1, sodium 133. Review of Systems Narrative: unable to obtain Medications/Allergies Home Medications Medication Instructions Recorded Confirmed Last Taken Type umeclidinium 62.5 mcg/actuation 1 inh inhalation DAILY #30 ea 08/06/21 10/01/22 07/24/22 Rx blister powder for inhalation (Incruse Ellipta) ferric citrate 210 mg iron tablet 420 mg PO TID 11/03/21 10/01/22 07/24/22 History (Auryxia) minoxidil 2.5 mg tablet 2.5 mg PO BID 11/22/21 10/01/22 07/24/22 History nitroglycerin 0.4 mg sublingual 0.4 mg sublingual Q5M PRN Chest 12/02/21 10/01/22 07/24/22 Rx tablet Pain #30 tabs clopidogrel 75 mg tablet 75 mg PO DAILY #90 tabs 01/28/22 10/01/22 07/20/22 Rx albuterol sulfate 90 mcg/actuation 2 puff inhalation Q6H PRN 02/21/22 10/01/22 07/24/22 History aerosol inhaler Shortness Of Breath Or Wheezing aspirin 81 mg tablet,delayed 81 mg PO DAILY 02/21/22 10/01/22 07/20/22 History release pantoprazole 40 mg tablet,delayed 40 mg PO DAILY 02/21/22 10/01/22 07/24/22 History release DME - BIPAP #1 ea 02/25/22 10/01/22 07/22/22 Rx DME - Oxygen #1 ea 02/25/22 10/01/22 07/24/22 Rx cyclobenzaprine 10 mg tablet 10 mg PO Q12H PRN muscle spasm #30 04/10/22 10/01/22 07/24/22 Rx tabs quetiapine 25 mg tablet 25 mg PO DAILY #90 tabs 04/10/22 10/01/22 07/24/22 Rx polyethylene glycol 3350 17 gram 17 g PO DAILY 06/09/22 10/01/22 07/24/22 Hi story oral powder packet (Miralax) apixaban 5 mg tablet (Eliquis) 2.5 mg PO BID 07/27/22 10/01/22 Unknown History carvedilol 6.25 mg tablet 12.5 mg PO BID 30 days #120 tabs 08/07/22 10/01/22 Unknown Rx cyanocobalamin (vitamin B-12) 1,000 mcg PO DAILY #30 caps 08/07/22 10/01/22 Unknown Rx 1,000 mcg capsule ferrous gluconate 324 mg (37.5 mg 324 mg PO BID #60 tabs 08/07/22 10/01/22 Unknown Rx iron) tablet clonazepam 0.5 mg tablet 0.5 mg PO BEDTIME #30 tabs 08/20/22 10/01/22 Unknown Rx clonidine HCl 0.3 mg tablet 0.3 mg PO TID #90 tabs 08/20/22 10/01/22 Unknown Rx tizanidine 4 mg tablet 4 mg PO Q8H PRN muscle spasticity 08/20/22 10/01/22 Unknown Rx #60 tabs isosorbide mononitrate 120 mg 240 mg PO DAILY 10/01/22 10/01/22 Unknown History tablet,extended release 24 hr lorazepam 1 mg tablet 1 mg PO DAILY 10/01/22 10/01/22 Unknown History losartan 50 mg tablet 50 mg PO DAILY 10/01/22 10/01/22 Unknown History oxycodone 5 mg tablet 5 mg PO Q8H PRN Pain 10/01/22 10/01/22 Unknown History vit B,C-folic ac 800 mcg-zinc 12.5 1 tab PO DAILY 10/01/22 10/01/22 Unknown History mg-selen-D3 2,000 unit-vit E tablet (RenaPlex-D) Allergies Allergy/AdvReac Type Severity Reaction Status Date / Time nifedipine Allergy LIZ-Mac Verified 08/20/22 08:59 Lip/Tongue/Throat Current Medications Generic Name Dose Route Start Last Admin Trade Name Freq PRN Reason Stop Dose Admin Albuterol/Ipratropium 3 ml 10/01/22 20:00 10/01/22 19:54 Ipratropium-Albuterol 3 Ml Neb INHALATION 3 ml Q6H.RESP ARTEM Administration Non-Formulary Medication 2.5 mg 10/01/22 18:00 10/01/22 17:51 Minoxidil PO Not Given BID ARTEM PFSH Acute PFSH: Medical History Abdominal ascites history of intermittent paracentesis, transudative fluid; prior work up has included negative biopsy, ceruloplasmin level normal, low iron, high ferritin, normal TIBC, negative HIV, hepatitis panel negative, JESÚS/SCL 70/double-stranded DNA antibodies negative, Alpha-fetoprotein level unremarkable, nonalcoholic by history, has hepatomegaly and splenomegaly Anemia chronic kidney disease Anxiety Arteriovenous fistula for hemodialysis in place, secondary Atherosclerosis of coronary artery Stent and balloon angioplasty to proximal 1 OM branch Chronic abdominal pain Chronic respiratory failure on home oxygen and bipap Congestive heart failure preserved ejection fraction COPD (chronic obstructive pulmonary disease) COVID 05/25 Degenerative disc disease, lumbar Depression Epididymitis 06/2022 ESRD on dialysis Generalized anxiety disorder with panic attacks History of cardiovascular stress test 07/2022 at [facility] perfusion imaging probably normal, no reversible defects, small fixed defect in apical anterior wall, EF 54%, nonischemic response to stress by EKG criteria History of coronary angiogram 11/2021 - patent stent History of home oxygen therapy Hypertension uncontrolled Hypertensive emergency recurrent episodes Hypertensive urgency Inguinal hernia Low back pain Nicotine dependence, cigarettes, with other nicotine-induced disorders Patient under care of multiple providers Pulmonary embolism 09/21 CTA inconclusive for very tiny peripheral LEFT lower lobe pulmonary artery sub segmental emboli versus poor opacification. Pulmonary hypertension Umbilical hernia Urethral stricture Uses bilevel positive airway pressure (BPAP) ventilation at home Surgical History H/O hand surgery Amputation right 2&3 fingers 2017 History of adenoidectomy Stented coronary artery Family History Other Hypertension Social History Smoking and tobacco status: current every day smoker cigarettes Packs smoked per day: 1.5 Years cigarettes smoked: 21 [ Other cigarette details: started age 20, currently 0.5ppd ] Alcohol intake: never Substance/Drug Use: never Number of children: 3 Current occupational status: disabled Do you think of yourself as: Straight/Heterosexual Vitals/I&O/Wt Last Vital Signs Temp 99.2 F 10/01/22 10:25 Pulse 88 10/01/22 19:56 Resp 15 10/01/22 19:54 BP 189/104 10/01/22 17:40 Pulse Ox 94 10/01/22 19:56 O2 Del Method BiPAP 10/01/22 19:54 O2 Flow Rate 15 10/01/22 10:29 FiO2 35 10/01/22 19:56 10/01/22 10/01/22 10/01/22 06:59 14:59 22:59 Intake Total 50 / 50 250 / 300 Balance 50 / 50 250 / 300 Weight last 48 hrs Weight 77.111 kg Physical Exam Narrative: lethargic , on BIPAP Data 10/01/22 10:30 10/01/22 10:30 Micro: Microbiology 10/01/22 11:22 Blood Culture - Preliminary Blood SPECIMEN COLLECTED 10/01/22 11:14 Blood Culture - Preliminary Blood SPECIMEN COLLECTED A&P Assessment and plan (1) End-stage renal disease on hemodialysis: Plan 1. End-stage renal disease: On HD Thursday per Thursday as outpatient. Patient is due for his HD today and now presents with volume overload and hypertensive urgency. -Plan for HD today, 4 hours and 4 L UF as tolerated 2. Hypertension: Blood pressure elevated, UF as tolerated and home meds to be restarted 3. Community-acquired pneumonia: On antibiotics of Rocephin and Zithromax. 4. Altered mental status: Likely multifactorial secondary to uremia and sepsis and respiratory failure. 4. Acute on chronic respiratory failure: Multifactorial 5. Anemia: Hemoglobin 7.7, TREY ordered, transfusion if hemoglobin less than 7 Patient evaluated using audiovisual cart. Time spent 45 minutes. Consult Attestations Medical Necessity Statement: per medicine Coding Level of Care Code Acute Code for Chg Fwd Diagnoses End-stage renal disease on hemodialysis N18.6; Z99.2
[2022-10-01] MEDS: ferrous gluconate 324 mg Tablet PO (20:25)
[2022-10-01] MEDS: cloNIDine 0.1 mg Tablet 0.3 MG PO (20:25)
[2022-10-01] MEDS: apixaban 5 mg Tablet 2.5 MG PO (20:26)
[2022-10-01] MEDS: carvedilol 12.5 mg Tablet PO (20:26)
[2022-10-01 20:27] LABS: Troponin 5 6HR 100.3 ng/L (0-15); Troponin 5 6HR Delta -0.7 ng/L (0-12)
[2022-10-02] VITALS (71 sets, daily range): BP systolic 121–224; BP diastolic 67–122; PULSE 62–95; RESP 12–28; TEMP 36.6–37.2; O2SAT 90–99; BMI 21.7
[2022-10-02] MEDS: morphine 4 mg/mL SDV 1 mL 2 MG IVP ×2 (00:43→12:12)
--- NOTE | 2022-10-02 00:57 | PC.NURSE ---
Morphine Patient complaining of severe abdominal pain at a 7 on a 1-[address] Villegas notified; order received for 2 mg morphine IVP PRN Q8Hr for pain. See MAR for administration.
[2022-10-02 02:45] LABS: Basophils # 0.1 10^3/uL (0.0-0.1); Basophils % 1.1 %; Eosinophils # 0.3 10^3/uL (0.0-0.8); Eosinophils % 6.2 %; Hematocrit 24.3 % (42.0-52.0); Hemoglobin 7.4 g/dL (11.7-16.6); Lymphocytes # 0.5 10^3/uL (0.8-4.8); Lymphocytes % 12.2 %; Mean Corpuscular HGB Conc 30.5 g/dL (30.0-36.0); Mean Corpuscular Hemoglobin 28.2 pg (28.0-34.0); Mean Corpuscular Volume 92.7 fl (80-94); Mean Platelet Volume 8.9 fL (7.4-10.4); Monocytes # 0.4 10^3/uL (0.2-0.9); Monocytes % 8.5 %; Neutrophils # 3.12 10^3/uL (1.8-7.7); Neutrophils % 71.8 %; Nucleated Red Blood Cells % 0 %; Platelet Count 149 10^3/cmm (130-400); Red Blood Count 2.62 10^6/uL (4.1-5.3); Red Cell Distribution Width 17.3 % (12.1-15.1); White Blood Count 4.4 10^3/uL (4.0-10.0)
[2022-10-02] MEDS: ipratropium-albuterol 3 mL Neb INHALATION ×4 (02:55→20:17)
[2022-10-02 03:08] LABS: Anion Gap 13.9 (5-19); Blood Urea Nitrogen 21 mg/dL (6-20); Calcium 9.4 mg/dL (8.5-10.5); Carbon Dioxide 30 mmol/L (22-29); Chloride 96 mmol/L (98-107); Glomerular Filtration Rate 12.9 mL/min (90-130); Glucose 63 mg/dL (65-115); Osmolality Calculated 283 mOsm/kg (285-295); Potassium 3.9 mmol/L (3.5-5.1); Sodium 136 mmol/L (136-145)
[2022-10-02] MEDS: labetalol 5 mg/mL SDV 20mL 10 MG IVP (05:05)
--- NOTE | 2022-10-02 07:17 | PC.NURSE ---
Blood pressure Dr. Villegas notified of patient's blood pressure remaining elevated despite labetolol administration. Order received to administer morning doses of clonidine, carvedilol, Imdur, and losartan early. Message to nurse placed in chart and receiving nurse made aware of desired early administration.
[2022-10-02] MEDS: cyanocobalamin 1,000 mcg Tablet 1000 MCG PO (07:48)
[2022-10-02] MEDS: losartan 50 mg Tablet PO (07:48)
[2022-10-02] MEDS: isosorbide mononitrate ER 60 mg Tablet 240 MG PO (07:49)
[2022-10-02] MEDS: carvedilol 12.5 mg Tablet PO ×2 (07:50→18:07)
[2022-10-02] MEDS: quetiapine 25 mg Tablet PO (07:50)
[2022-10-02] MEDS: aspirin 81 mg EC Tablet PO (07:50)
[2022-10-02] MEDS: clopidogrel 75 mg Tablet PO (07:51)
[2022-10-02] MEDS: apixaban 5 mg Tablet 2.5 MG PO (07:51)
[2022-10-02] MEDS: cloNIDine 0.1 mg Tablet 0.3 MG PO ×3 (07:51→20:08)
[2022-10-02] MEDS: ferrous gluconate 324 mg Tablet PO ×2 (07:54→18:07)
[2022-10-02] MEDS: pantoprazole DR 40 mg Tablet PO (07:55)
--- NOTE | 2022-10-02 09:43 | PM.PN ---
Subjective Subjective: s/p HD yesterday Medications: Reviewed: Yes Vitals/I&O/Wt Last Vital Signs Temp 98.5 F 10/02/22 08:30 Pulse 82 10/02/22 08:30 Resp 22 H 10/02/22 08:10 BP 224/122 10/02/22 08:30 Pulse Ox 96 10/02/22 08:30 O2 Del Method Nasal Cannula 10/02/22 08:30 O2 Flow Rate 5 10/02/22 08:30 FiO2 35 10/02/22 02:57 10/01/22 10/02/22 10/02/22 22:59 06:59 14:59 Intake Total 250 / 300 Balance 250 / 300 Weight last 48 hrs Weight 74.843 kg Weight 77.111 kg Physical Exam Narrative: lethargic , on BIPAP Data 10/02/22 02:22 10/02/22 02:22 Micro: Microbiology 10/01/22 11:22 Blood Culture - Preliminary Blood SPECIMEN COLLECTED 10/01/22 11:14 Blood Culture - Preliminary Blood SPECIMEN COLLECTED A&P Assessment and plan (1) End-stage renal disease on hemodialysis: Plan 1. End-stage renal disease: On HD Thursday per Thursday as outpatient. Patient is due for his HD today and now presents with volume overload and hypertensive urgency. -s/p HD yesterday , 4 hours and 4 L UF as tolerated, plan for HD again today 2. Hypertension: Blood pressure elevated, UF as tolerated and home meds to be restarted 3. Community-acquired pneumonia: On antibiotics of Rocephin and Zithromax. 4. Altered mental status: Likely multifactorial secondary to uremia and sepsis and respiratory failure. 4. Acute on chronic respiratory failure: Multifactorial 5. Anemia: Hemoglobin 7.7, TREY ordered, transfusion if hemoglobin less than 7 Patient evaluated using audiovisual cart. Time spent 45 minutes. Attestations Medical Necessity Statement*: per medicine Coding Level of Care Code Acute Code for Chg Fwd Diagnoses End-stage renal disease on hemodialysis N18.6; Z99.2
[2022-10-02] MEDS: cefTRIAXone 1,000 MG in sodium chloride 0.9% (plus) 50 ML 100 MG IV (14:26)
[2022-10-02] MEDS: azithromycin 500 MG in sodium chloride 0.9% 250 ML 250 MG IV (14:27)
[2022-10-02] MEDS: hyDRALAzine 25 mg Tablet PO ×2 (14:27→20:08)
--- NOTE | 2022-10-02 19:37 | P.PN_ITS ---
Subjective Subjective: Weaned off BiPAP to nasal cannula. This morning resting to eat, however, states still having abdominal pain. This morning she is more responsive, but still lethargic. Medications: Reviewed: Yes Vitals/I&O/Wt Last Vital Signs Temp 98.4 F 10/02/22 16:00 Pulse 70 10/02/22 18:00 Resp 15 10/02/22 18:00 BP 136/84 10/02/22 18:00 Pulse Ox 95 10/02/22 18:00 O2 Del Method Nasal Cannula 10/02/22 18:00 O2 Flow Rate 5 10/02/22 18:00 FiO2 35 10/02/22 02:57 10/02/22 10/02/22 10/02/22 06:59 14:59 22:59 Intake Total 470 / 470 250 / 720 Output Total 3300 / 3300 Balance -2830 / -2830 250 / -2580 Weight last 48 hrs Weight 73.3 kg Weight 74.843 kg Weight 77.111 kg Physical Exam Const: GENERAL APPEARANCE: lethargic ORIENTATION/CONSCIOUSNESS: Yes lethargic Resp: COMMON NORMALS: normal respiratory effort and clear to auscultation bilaterally AUSCULTATION: clear to auscultation bilaterally Cardio: COMMON NORMALS: regular rhythm, S1 normal heart sound present, S2 normal heart sound present and No murmurs present (Cardio) RHYTHM: regular rhythm HEART SOUNDS: S1 normal heart sound present and S2 normal heart sound present GI: COMMON NORMALS: Normal to inspection, nondistended, normoactive bowel sounds present and Soft to palpation PALPATION: Yes Soft to palpation OTHER: Mildly tender to palpation without specific point of more tenderness, soft. Extremity: COMMON NORMALS: no joint enlargement GENERAL: Yes edema Neuro: COMMON NORMALS: moves all extremities SENSORIUM/ORIENTATION: Yes lethargic Data 10/02/22 02:22 10/02/22 02:22 Micro: Microbiology 10/01/22 11:22 Blood Culture - Preliminary Blood NEGATIVE TO DATE 10/01/22 11:14 Blood Culture - Preliminary Blood NEGATIVE TO DATE A&P Assessment and plan (1) Abdominal pain: Noted chronic abdominal pain, has had multiple prior imaging studies done. However, is currently he is somewhat lethargic, cannot obtain a very good history from him, obtained additional imaging with CT abdomen pelvis. Discussed with him results, noted bibasilar atelectasis versus pneumonia, additionally large volume ascites, mild anasarca. Hepatomegaly. Discussed with him holding Eliquis for consideration of paracentesis for additional assessment for possibility of SBP. For now continues on empiric ceftriaxone and azithromycin. Qualifiers: Abdominal location: unspecified location Qualified Code(s): R10.9 - Unspecified abdominal pain (2) Respiratory failure with hypoxia: Continue treatment of CHF, hemodialysis, treatment of pneumonia with antibiotics. Wean down oxygen support as tolerated. He has weaned off BiPAP. Hypoxic on presentation, despite going up to 6 L oxygen in the ER reportedly saturation still 79%. Was started on BiPAP which she is tolerating. Oxygenation so far has been improving, titrating down on FiO2. Currently decreased down to 40%. Also recently noted hospitalization with CHF, he is fluid overload currently, was not able to get his dialysis either. Cardiac enlargement on chest x-ray. He is hypertensive. Requesting nephrology consultation for hemodialysis. Incidentally noted also extensive superimposed chronic interstitial changes throughout both lungs. For now initial admission to intensive care unit given also lethargy. Continue to wean down FiO2, BiPAP support. Discussed with ER physician, RT Qualifiers: Chronicity: acute on chronic Qualified Code(s): J96.21 - Acute and chronic respiratory failure with hypoxia (3) Acute encephalopathy: Continue with home medications that may be contributing. Treat underlying condition as above. Ammonia noted normal. Overnight was again restarted on IV morphine. Will decrease dose to 1 mg. Noted ascites, consideration of paracentesis, held Eliquis. Noted continues without leukocytosis, afebrile. He is on only small dose of quetiapine. Continue for now, but in case not improving may have to hold. Component possibly secondary to respiratory failure, but additionally does have chronic pain, has a number of pain medications and muscle relaxers on his home medication list, additionally was earlier today seen at ER in [place] for this reason, unknown whether he had received pain treatment or other medications there that could contribute to his lethargy although does not appear to be hypopneic. Requesting medical records. For now hold off his pain medications, muscle relaxers, monitor mentation. Initial admission to intensive care unit. Normal TSH. UDS. (4) Community acquired pneumonia: Blood culture so far without growth. Ceftriaxone, azithromycin as above. Requested sputum culture, urine antigen panel, Legionella antigen as well. MRSA PCR back in August noted negative. Negative respiratory viral panel. Additional treatment as above. Qualifiers: Laterality: unspecified laterality Qualified Code(s): J18.9 - Pneumonia, unspecified organism (5) End-stage renal disease on hemodialysis: Extra hemodialysis today. Nephrology recommendation appreciated. (6) Hypertension: Significantly worse blood pressure this morning up to 220/122. Give additional dose of labetalol, started hydralazine 25 mg p.o. 3 times daily since minoxidil is unavailable. Continue home antihypertensives. (7) Congestive heart failure: Possible exacerbation of diastolic congestive heart failure. Appears fluid overloaded, with hypoxic aspiratory failure. Noted patchy airspace infiltrates. Hemodialysis. Monitor I&O, weights. Obtain troponin EKG series. Monitor on telemetry. Plan Chronic pain: Requesting for pain medication, her, is also lethargic. Continue monitoring in ICU for now. Anemia CAD Other chronic problems Attestations Medical Necessity Statement*: Continue admission for assessment management of acute encephalopathy, CHF exacerbation and gentleman with ESRD, pneumonia, pending further evaluation of ascites, and gentleman with chronic pain. Diagnoses Abdominal pain R10.9 Abdominal location: unspecified location Respiratory failure with hypoxia J96.21 Chronicity: acute on chronic Acute encephalopathy G93.40 Community acquired pneumonia J18.9 Laterality: unspecified laterality End-stage renal disease on hemodialysis N18.6; Z99.2 Hypertension I10 Congestive heart failure I50.9
[2022-10-02] MEDS: morphine 4 mg/mL SDV 1 mL 1 MG IVP (20:07)
[2022-10-03] VITALS (51 sets, daily range): BP systolic 121–181; BP diastolic 65–119; PULSE 61–73; RESP 7–27; TEMP 36.6–36.8; O2SAT 86–100
[2022-10-03] MEDS: ipratropium-albuterol 3 mL Neb INHALATION ×4 (02:23→19:44)
[2022-10-03 04:13] LABS: Basophils # 0.1 10^3/uL (0.0-0.1); Basophils % 1.5 %; Eosinophils # 0.3 10^3/uL (0.0-0.8); Eosinophils % 8.3 %; Hemoglobin 7.6 g/dL (11.7-16.6); Lymphocytes # 0.6 10^3/uL (0.8-4.8); Lymphocytes % 13.8 %; Mean Corpuscular HGB Conc 30.4 g/dL (30.0-36.0); Mean Corpuscular Volume 92.3 fl (80-94); Mean Platelet Volume 9.7 fL (7.4-10.4); Monocytes # 0.4 10^3/uL (0.2-0.9); Monocytes % 8.5 %; Neutrophils # 2.79 10^3/uL (1.8-7.7); Neutrophils % 67.7 %; Nucleated Red Blood Cells % 0 %; Platelet Count 198 10^3/cmm (130-400); Red Blood Count 2.71 10^6/uL (4.1-5.3); Red Cell Distribution Width 17.1 % (12.1-15.1); White Blood Count 4.1 10^3/uL (4.0-10.0)
[2022-10-03 04:36] LABS: Anion Gap 14.1 (5-19); Blood Urea Nitrogen 22 mg/dL (6-20); Calcium 8.8 mg/dL (8.5-10.5); Carbon Dioxide 30 mmol/L (22-29); Chloride 97 mmol/L (98-107); Glomerular Filtration Rate 13.9 mL/min (90-130); Glucose 101 mg/dL (65-115); Osmolality Calculated 287 mOsm/kg (285-295); Potassium 4.1 mmol/L (3.5-5.1); Sodium 137 mmol/L (136-145)
[2022-10-03] MEDS: morphine 4 mg/mL SDV 1 mL 1 MG IVP ×2 (05:27→20:46)
[2022-10-03] MEDS: pantoprazole DR 40 mg Tablet PO (08:18)
[2022-10-03] MEDS: carvedilol 12.5 mg Tablet PO ×2 (08:18→17:37)
[2022-10-03] MEDS: quetiapine 25 mg Tablet PO (08:18)
[2022-10-03] MEDS: hyDRALAzine 25 mg Tablet PO ×3 (08:18→20:46)
[2022-10-03] MEDS: ferrous gluconate 324 mg Tablet PO ×2 (08:19→17:37)
[2022-10-03] MEDS: isosorbide mononitrate ER 60 mg Tablet 240 MG PO (08:19)
[2022-10-03] MEDS: losartan 50 mg Tablet PO (08:19)
[2022-10-03] MEDS: cyanocobalamin 1,000 mcg Tablet 1000 MCG PO (08:19)
[2022-10-03] MEDS: aspirin 81 mg EC Tablet PO (08:19)
[2022-10-03] MEDS: clopidogrel 75 mg Tablet PO (08:20)
[2022-10-03] MEDS: cloNIDine 0.1 mg Tablet 0.3 MG PO ×3 (08:20→20:46)
[2022-10-03] MEDS: polyethylene glycol 3350 Pkt 17 gm PO (08:23)
[2022-10-03] MEDS: acetaminophen 325 mg Tablet 650 MG PO ×2 (08:24→09:46)
--- NOTE | 2022-10-03 09:50 | P.PN_ITS ---
Subjective Subjective: on 4 L Fio2 Medications: Reviewed: Yes Vitals/I&O/Wt Last Vital Signs Temp 98.1 F 10/03/22 08:00 Pulse 66 10/03/22 08:55 Resp 16 10/03/22 08:45 BP 177/98 10/03/22 08:20 Pulse Ox 99 10/03/22 08:45 O2 Del Method Nasal Cannula 10/03/22 08:45 O2 Flow Rate 5 10/03/22 08:45 FiO2 35 10/02/22 02:57 10/02/22 10/03/22 10/03/22 22:59 06:59 14:59 Intake Total 250 / 720 480 / 1200 Balance 250 / -2580 480 / -2100 Weight last 48 hrs Weight 76.771 kg Weight 73.3 kg Weight 74.843 kg Weight 77.111 kg Physical Exam Narrative: awake alert no distress Data 10/03/22 03:55 10/03/22 03:55 Micro: Microbiology 10/01/22 11:22 Blood Culture - Preliminary Blood NEGATIVE TO DATE 10/01/22 11:14 Blood Culture - Preliminary Blood NEGATIVE TO DATE A&P Assessment and plan (1) End-stage renal disease on hemodialysis: Plan 1. End-stage renal disease: On HD per Thursday as outpatient. s/p HD thu and , Plan for HD tomorrow 2. Hypertension: Blood pressure elevated, UF as tolerated and home meds to be restarted 3. Community-acquired pneumonia: On antibiotics of Rocephin and Zithromax. 4. Altered mental status: Likely multifactorial secondary to uremia and sepsis and respiratory failure. 4. Acute on chronic respiratory failure: Multifactorial 5. Anemia: Hemoglobin 7.7, TREY ordered, transfusion if hemoglobin less than 7 Patient evaluated using audiovisual cart. Time spent 45 minutes. Attestations Medical Necessity Statement*: per medicine Coding Level of Care Code Acute Code for [facility] Diagnoses End-stage renal disease on hemodialysis N18.6; Z99.2
--- NOTE | 2022-10-03 10:00 | PC.NURSE ---
patient reports severe pain to ingunal hernia site, reports he often has pain here. He is requesting morphone, but base don the current order schedule he cannot have it yet. Nurse adminstered tylenol and alerted Dr mendiola. Dr mendiola did not want to increase morphone yet due to mental status. Increased tylenol frequency and give another dose now.
[2022-10-03] MEDS: TRAMadol 50 mg Tablet 25 MG PO ×2 (11:10→19:15)
--- NOTE | 2022-10-03 12:20 | P.CONIM_ITS ---
Providers/Reason For Consult Consulting Physician/Specialty*: Caterina Hewitt MD General Surgery Reason for Consult*: Right inguinal hernia Requesting Physician: Bob Gonzalez Attending Physician: Bob Gonzalez Primary Care Provider: Mal Peres DO History of Present Illness History of Present Illness Mal Gibbs is a 42 year old male with oxygen dependent COPD and end- stage renal disease on dialysis who is having pain and swelling in the right scrotum. He states that the swelling is there all the time. It does not seem to wax and wane but has been more painful in the past day or so. Review of Systems Card: Denies: chest pain Resp: Reports: dyspnea (at baseline, no worse than usual) GI: Denies: nausea, vomiting or change in bowel habits Jefferson/Lymph: Reports: other (on Eliqius, clopidogrel, and aspirin) Medications/Allergies Home Medications Medication Instructions Recorded Confirmed Last Taken Type umeclidinium 62.5 mcg/actuation 1 inh inhalation DAILY #30 ea 08/06/21 10/01/22 07/24/22 Rx blister powder for inhalation (Incruse Ellipta) ferric citrate 210 mg iron tablet 420 mg PO TID 11/03/21 10/01/22 07/24/22 History (Auryxia) minoxidil 2.5 mg tablet 2.5 mg PO BID 11/22/21 10/01/22 07/24/22 History nitroglycerin 0.4 mg sublingual 0.4 mg sublingual Q5M PRN Chest 12/02/21 10/01/22 07/24/22 Rx tablet Pain #30 tabs clopidogrel 75 mg tablet 75 mg PO DAILY #90 tabs 01/28/22 10/01/22 07/20/22 Rx albuterol sulfate 90 mcg/actuation 2 puff inhalation Q6H PRN 02/21/22 10/01/22 07/24/22 History aerosol inhaler Shortness Of Breath Or Wheezing aspirin 81 mg tablet,delayed 81 mg PO DAILY 02/21/22 10/01/22 07/20/22 History release pantoprazole 40 mg tablet,delayed 40 mg PO DAILY 02/21/22 10/01/22 07/24/22 History release DME - BIPAP #1 ea 02/25/22 10/01/22 07/22/22 Rx DME - Oxygen #1 ea 02/25/22 10/01/22 07/24/22 Rx cyclobenzaprine 10 mg tablet 10 mg PO Q12H PRN muscle spasm #30 04/10/22 10/01/22 07/24/22 Rx tabs quetiapine 25 mg tablet 25 mg PO DAILY #90 tabs 04/10/22 10/01/22 07/24/22 Rx polyethylene glycol 3350 17 gram 17 g PO DAILY 06/09/22 10/01/22 07/24/22 History oral powder packet (Miralax) apixaban 5 mg tablet (Eliquis) 2.5 mg PO BID 07/27/22 10/01/22 Unknown History carvedilol 6.25 mg tablet 12.5 mg PO BID 30 days #120 tabs 08/07/22 10/01/22 Unknown Rx cyanocobalamin (vitamin B-12) 1,000 mcg PO DAILY #30 caps 08/07/22 10/01/22 Unknown Rx 1,000 mcg capsule ferrous gluconate 324 mg (37.5 mg 324 mg PO BID #60 tabs 08/07/22 10/01/22 Unknown Rx iron) tablet clonazepam 0.5 mg tablet 0.5 mg PO BEDTIME #30 tabs 08/20/22 10/01/22 Unknown Rx clonidine HCl 0.3 mg tablet 0.3 mg PO TID #90 tabs 08/20/22 10/01/22 Unknown Rx tizanidine 4 mg tablet 4 mg PO Q8H PRN muscle spasticity 08/20/22 10/01/22 Unknown Rx #60 tabs isosorbide mononitrate 120 mg 240 mg PO DAILY 10/01/22 10/01/22 Unknown History tablet,extended release 24 hr lorazepam 1 mg tablet 1 mg PO DAILY 10/01/22 10/01/22 Unknown History losartan 50 mg tablet 50 mg PO DAILY 10/01/22 10/01/22 Unknown History oxycodone 5 mg tablet 5 mg PO Q8H PRN Pain 10/01/22 10/01/22 Unknown History vit B,C-folic ac 800 mcg-zinc 12.5 1 tab PO DAILY 10/01/22 10/01/22 Unknown History mg-selen-D3 2,000 unit-vit E tablet (RenaPlex-D) Allergies Allergy/AdvReac Type Severity Reaction Status Date / Time nifedipine Allergy LIZ-Mac Verified 08/20/22 08:59 Lip/Tongue/Throat Current Medications Generic Name Dose Route Start Last Admin Trade Name Yadiel PRN Reason Stop Dose Admin Acetaminophen 650 mg 10/03/22 09:17 10/03/22 09:46 Acetaminophen 325 Mg Tablet PO 650 mg Q4H PRN Administration MILD PAIN OR INCREASE TEMP Albuterol/Ipratropium 3 ml 10/01/22 20:00 10/03/22 08:52 Ipratropium-Albuterol 3 Ml Neb INHALATION 3 ml Q6H.RESP ARTEM Administration Apixaban 2.5 mg 10/01/22 18:00 10/02/22 07:51 Apixaban 5 Mg Tablet PO 2.5 mg BID ARTEM Administration Aspirin 81 mg 10/02/22 09:00 10/03/22 08:19 Aspirin 81 Mg Ec Tablet PO 81 mg DAILY ARTEM Administration Carvedilol 12.5 mg 10/01/22 18:00 10/03/22 08:18 Carvedilol 12.5 Mg Tablet PO 12.5 mg BID ARTEM Administration Clonidine HCl 0.3 mg 10/01/22 17:24 10/03/22 08:20 Clonidine 0.1 Mg Tablet PO 0.3 mg TID ARTEM Administration Clopidogrel Bisulfate 75 mg 10/02/22 09:00 10/03/22 08:20 Clopidogrel 75 Mg Tablet PO 75 mg DAILY ARTEM Administration Cyanocobalamin 1,000 mcg 10/02/22 09:00 10/03/22 08:19 Cyanocobalamin 1,000 Mcg Tablet PO 1,000 mcg DAILY ARTEM Administration Ferrous Gluconate 324 mg 10/01/22 18:00 10/03/22 08:19 Ferrous Gluconate 324 Mg Tablet PO 324 mg BID ARTEM Administration Hydralazine HCl 25 mg 10/02/22 15:00 10/03/22 08:18 Hydralazine 25 Mg Tablet PO 25 mg TID ARTEM Administration Ceftriaxone Sodium 1,000 mg/ 50 mls @ 100 mls/hr 10/02/22 13:00 10/02/22 14:56 Sodium Chloride IV Infused Q24H ARTEM Infusion Protocol Azithromycin 500 mg/ Sodium 250 mls @ 250 mls/hr 10/02/22 14:00 10/02/22 15:27 Chloride IV Infused Q24H ARTEM Infusion Protocol Isosorbide Mononitrate 240 mg 10/02/22 09:00 10/03/22 08:19 Isosorbide Mononitrate Er 60 Mg Tablet PO 240 mg DAILY ARTEM Administration Labetalol HCl 10 mg 10/01/22 14:07 10/02/22 05:05 Labetalol 5 Mg/Ml Sdv 20ml IVP 10 mg Q4H PRN Administration HYPERTENSION Losartan Potassium 50 mg 10/02/22 09:00 10/03/22 08:19 Losartan 50 Mg Tablet PO 50 mg DAILY ARTEM Administration Morphine Sulfate 1 mg 10/02/22 19:51 10/03/22 05:27 Morphine 4 Mg/Ml Sdv 1 Ml IVP 1 mg Q8H PRN Administration SEVERE PAIN Pantoprazole Sodium 40 mg 10/02/22 09:00 10/03/22 08:[address] 40 Mg Tablet PO 40 mg DAILY ARTEM Administration Polyethylene Glycol 17 gm 10/02/22 09:00 10/03/22 08:23 Polyethylene Glycol 3350 Pkt 17 Gm PO 17 gm DAILY ARTEM Administration Quetiapine Fumarate 25 mg 10/02/22 09:00 10/03/22 08:18 Quetiapine 25 Mg Tablet PO 25 mg DAILY ARTEM Administration Tramadol HCl 25 mg 10/03/22 10:08 10/03/22 11:10 Tramadol 50 Mg Tablet PO 25 mg Q6H PRN Administration MODERATE PAIN PFSH Acute PFSH: Medical History Abdominal ascites history of intermittent paracentesis, transudative fluid; prior work up has included negative biopsy, ceruloplasmin level normal, low iron, high ferritin, normal TIBC, negative HIV, hepatitis panel negative, JESÚS/SCL 70/double-stranded DNA antibodies negative, Alpha-fetoprotein level unremarkable, nonalcoholic by history, has hepatomegaly and splenomegaly Anemia chronic kidney disease Anxiety Arteriovenous fistula for hemodialysis in place, secondary Atherosclerosis of coronary artery Stent and balloon angioplasty to proximal 1 OM branch Chronic abdominal pain Chronic respiratory failure on home oxygen and bipap Congestive heart failure preserved ejection fraction COPD (chronic obstructive pulmonary disease) COVID 05/25 Degenerative disc disease, lumbar Depression Epididymitis 06/2022 ESRD on dialysis Generalized anxiety disorder with panic attacks History of cardiovascular stress test 07/[address] [facility] perfusion imaging probably normal, no reversible defects, small fixed defect in apical anterior wall, EF 54%, nonischemic response to stress by EKG criteria History of coronary angiogram 11/2021 - patent stent History of home oxygen therapy Hypertension uncontrolled Hypertensive emergency recurrent episodes Hypertensive urgency Inguinal hernia Low back pain Nicotine dependence, cigarettes, with other nicotine-induced disorders Patient under care of multiple providers Pulmonary embolism 09/21 CTA inconclusive for very tiny peripheral LEFT lower lobe pulmonary artery sub segmental emboli versus poor opacification. Pulmonary hypertension Umbilical hernia Urethral stricture Uses bilevel positive airway pressure (BPAP) ventilation at home Surgical History H/O hand surgery Amputation right 2&3 fingers 2017 History of adenoidectomy Stented coronary artery Family History Other Hypertension Social History Smoking and tobacco status: current every day smoker cigarettes Packs smoked per day: 1.5 Years cigarettes smoked: 21 [ Other cigarette details: started age 20, currently 0.5ppd ] Alcohol intake: never Substance/Drug Use: never Number of children: 3 Current occupational status: disabled Do you think of yourself as: Straight/Heterosexual Vitals/I&O/Wt Last Vital Signs Temp 98.1 F 10/03/22 09:00 Pulse 65 10/03/22 10:00 Resp 17 10/03/22 10:00 BP 167/98 10/03/22 10:00 Pulse Ox 96 10/03/22 10:00 O2 Del Method Nasal Cannula 10/03/22 09:00 O2 Flow Rate 4 10/03/22 09:00 FiO2 35 10/02/22 02:57 10/02/22 10/03/22 10/03/22 22:59 06:59 14:59 Intake Total 250 / 720 480 / 1200 Balance 250 / -2580 480 / -2100 Weight last 48 hrs Weight 169 lb 4 oz Weight 161 lb 9.581 oz Weight 165 lb Physical Exam Const: COMMON NORMALS: no acute distress and alert GENERAL APPEARANCE: ill appearing (appears chronically ill) Resp: COMMON NORMALS: normal respiratory effort and clear to auscultation radha aterally AUSCULTATION: clear to auscultation bilaterally Cardio: COMMON NORMALS: regular rate and regular rhythm RATE: regular rate RHYTHM: regular rhythm GI: INSPECTION: Yes abdominal distension and Yes visible herniation (umbilical) PALPATION: Yes Firmness to palpation present (GI), Yes Tenderness to palpation present (GI) (mild generalized tenderness, not particularly tender right inguinal region), No Guarding due to palpation present (GI), No Palpable mass present and No Rebound tenderness present : SCROTUM: Yes scrotal swelling (normal overlying skin without erythema or induration) Scrotal swelling laterality: right Scrotal swelling consistent with: hydrocele Neuro: COMMON NORMALS: moves all extremities SENSORIUM/ORIENTATION: Yes al ert Psych: APPEARANCE: Yes grossly normal Data 10/03/22 03:55 10/03/22 03:55 Micro: Microbiology 10/01/22 11:22 Blood Culture - Preliminary Blood NEGATIVE TO DATE 10/01/22 11:14 Blood Culture - Preliminary Blood NEGATIVE TO DATE CT Abd/Pel: My impression: Communicating hydrocele, patent along entirety of spermatic cord with no visceral herniation and no clear evidence of fascial defect. Radiologist's impression: Radiology Impressions Chest X-Ray 10/01/22 10:26 IMPRESSION: 1. Areas of the patchy airspace infiltrate in the bilateral lower lung zone suspicious for active pneumonia. 2. Extensive superimposed chronic interstitial changes throughout both lungs. 3. Significant cardiac enlargement unchanged. Abdomen/Pelvis CT 10/01/22 18:49 IMPRESSION: 1. Bibasilar atelectasis versus pneumonia. 2. Mild pulmonary edema, mild cardiomegaly, and small bilateral pleural effusions. 3. Large volume ascites and mild anasarca. 4. Hepatomegaly and possible chronic liver disease. Correlate with LFTs. 5. Bilateral renal atrophy. 6. Diverticulosis coli. 7. Right scrotal hydrocele. A&P Assessment and plan (1) Right hydrocele: This is not an inguinal hernia and thus no risk for incarceration. Patient unlikely to be a candidate for elective operative intervention. Recommend urology consultation if patient desires consideration of surgical repair. Paracentesis may provide some degree of relief as this is communicating. Coding Level of Care Code Acute Code for [facility] Diagnoses Right hydrocele N43.3
[2022-10-03] MEDS: cefTRIAXone 1,000 MG in sodium chloride 0.9% (plus) 50 ML 100 MG IV (13:27)
[2022-10-03] MEDS: LORazepam 1 mg Tablet PO (13:30)
[2022-10-03] MEDS: azithromycin 500 MG in sodium chloride 0.9% 250 ML 250 MG IV (14:01)
--- NOTE | 2022-10-03 20:14 | P.PN_ITS ---
Subjective Subjective: She is alert today. States that he was very sleepy because he had not slept for several days. Still having abdominal pain, but states it is in the right groin. Medications: Reviewed: Yes Vitals/I&O/Wt Last Vital Signs Temp 98.1 F 10/03/22 09:00 Pulse 67 10/03/22 19:45 Resp 20 H 10/03/22 19:45 BP 157/97 10/03/22 18:00 Pulse Ox 98 10/03/22 19:45 O2 Del Method Nasal Cannula 10/03/22 19:45 O2 Flow Rate 4 10/03/22 19:45 FiO2 35 10/02/22 02:57 10/03/22 10/03/22 10/03/22 06:59 14:59 22:59 Intake Total 480 / 1200 250 / 250 730 / 980 Balance 480 / -2100 250 / 250 730 / 980 Weight last 48 hrs Weight 76.771 kg Weight 73.3 kg Weight 74.843 kg Physical Exam Const: COMMON NORMALS: patient oriented x3 GENERAL APPEARANCE: lethargic ORIENTATION/CONSCIOUSNESS: Yes lethargic Resp: COMMON NORMALS: normal respiratory effort and clear to auscultation bilaterally AUSCULTATION: clear to auscultation bilaterally Cardio: COMMON NORMALS: regular rhythm, S1 normal heart sound present, S2 normal heart sound present and No murmurs present (Cardio) RHYTHM: regular rhythm HEART SOUNDS: S1 normal heart sound present and S2 normal heart sound present GI: COMMON NORMALS: Normal to inspection, nondistended, normoactive bowel sounds present, Soft to palpation and non-tender PALPATION: Yes Soft to palpation OTHER: Mildly tender to palpation without specific point of more tenderness, soft. : OTHER: Right groin swelling, soft, no erythema Extremity: COMMON NORMALS: no joint enlargement GENERAL: Yes edema Neuro: COMMON NORMALS: patient oriented x3 and moves all extremities SENSORIUM/ORIENTATION: Yes lethargic Data 10/03/22 03:55 10/03/22 03:55 A&P Assessment and plan (1) Abdominal pain: Again required IV morphine. Tylenol dose was increased but states is not working for him. Right groin pain, appreciate surgical consultation, no hernia, secondary to hydrocele. Discussed and documentation reviewed. May benefit from paracentesis. Were not able to arrange paracentesis today with radiology. Continue to withhold Eliquis as he is at risk of bleeding with also ESRD, concurrently also on aspirin and Plavix. In the meantime continue hemodialysis. Urology consultation I am told currently not available will be back on Thursday. Noted chronic abdominal pain, has had multiple prior imaging studies done. However, is currently he is somewhat lethargic, cannot obtain a very good history from him, obtained additional imaging with CT abdomen pelvis. Discussed with him results, noted bibasilar atelectasis versus pneumonia, additionally large volume ascites, mild anasarca. Hepatomegaly. For now continues on empiric ceftriaxone and azithromycin. Qualifiers: Abdominal location: unspecified location Qualified Code(s): R10.9 - Unspecified abdominal pain (2) Respiratory failure with hypoxia: Continue treatment of CHF, additional hemodialysis tomorrow, treatment of pneumonia with antibiotics. Doing well off BiPAP so far but still requiring 4 L. Did have a anxiety attack today, required restarting his home Ativan. Continue to monitor mental status. Should be able to continue care on medical surgical floor. We will continue wit h continuous pulse oximetry. Also recently noted hospitalization with CHF, he is fluid overload currently, was not able to get his dialysis either. Cardiac enlargement on chest x-ray. He is hypertensive. Requesting nephrology consultation for hemodialysis. Incidentally noted also extensive superimposed chronic interstitial changes throughout both lungs. For now initial admission to intensive care unit given also lethargy. Continue to wean down FiO2, BiPAP support. Discussed with ER physician, RT Qualifiers: Chronicity: acute on chronic Qualified Code(s): J96.21 - Acute and chronic respiratory failure with hypoxia (3) Acute encephalopathy: Improved. He states that has not slept in several days preadmission. Still caution with pain medications, started him on oral tramadol for now, attempt to wean off, Tylenol dose was increased but he states it does not work for him. Continue with home medications that may be contributing. Treat underlying condition as above. Ammonia noted normal. Noted ascites, consideration of paracentesis, held Eliquis. Noted continues without leukocytosis, afebrile. Lower likelihood of SBP. He is on only small dose of quetiapine. Continue for now, but in case not improving may have to hold. Component possibly secondary to respiratory failure. Normal TSH. UDS. (4) Community acquired pneumonia: Blood culture so far without growth. Ceftriaxone, azithromycin as above. Requested sputum culture, urine antigen panel, Legionella antigen as well. MRSA PCR back in August noted negative. Negative respiratory viral panel. Additional treatment as above. Qualifiers: Laterality: unspecified laterality Qualified Code(s): J18.9 - Pneumonia, unspecified organism (5) End-stage renal disease on hemodialysis: Extra hemodialysis tomorrow. Nephrology recommendation appreciated. (6) Hypertension: Blood pressures improved with treatment. Continue as needed labetalol, started hydralazine 25 mg p.o. 3 times daily since minoxidil is unavailable. Continue home antihypertensives. (7) Congestive heart failure: As above. Follow-up CMP requested. Noted patchy airspace infiltrates. Hemodialysis. Monitor I&O, weights. Monitor on telemetry. Plan Chronic pain: Cautious pain control acute encephalopathy. Anemia, hemoglobin noted 7.6. Follow-up CBC requested. CAD Other chronic problems Attestations Medical Necessity Statement*: Admission for assessment of CHF decompensation and abdomen with anuria, ESRD, ascites, treatment of pneumonia, assessment metabolic encephalopathy, additional comorbidities. Diagnoses Abdominal pain R10.9 Abdominal location: unspecified location Respiratory failure with hypoxia J96.21 Chronicity: acute on chronic Acute encephalopathy G93.40 Community acquired pneumonia J18.9 Laterality: unspecified laterality End-stage renal disease on hemodialysis N18.6; Z99.2 Hypertension I10 Congestive heart failure I50.9
--- NOTE | 2022-10-03 23:03 | PC.NURSE ---
Transferred to room 264 via wheelchair, report given to Kallie.
--- NOTE | 2022-10-03 23:16 | PC.NURSE ---
TRANSFER FROM ICU Pt brought to floor via wheelchair from ICU at 2250. Is alert and oriented. youth nutritional monitor applied. c/o abd/R groin pain on arrival. ICU nurse had given pain meds this evening and pt aware. Abd is firm & distended. Has had multiple paracentesis procedures done with 2 this hospitalization. Is a hemodialysis pt and has fistula in left arm. O2 in place at 4l per NC. Oriented to new room.
[2022-10-04] VITALS (15 sets, daily range): BP systolic 158–200; BP diastolic 64–127; PULSE 61–80; RESP 16–17; TEMP 36.5–37.2; O2SAT 94–98
[2022-10-04] MEDS: TRAMadol 50 mg Tablet 25 MG PO (02:58)
[2022-10-04 04:13] LABS: Basophils # 0.1 10^3/uL (0.0-0.1); Basophils % 1.5 %; Eosinophils # 0.5 10^3/uL (0.0-0.8); Eosinophils % 11.3 %; Hemoglobin 7.1 g/dL (11.7-16.6); Lymphocytes # 0.7 10^3/uL (0.8-4.8); Lymphocytes % 15.7 %; Mean Corpuscular HGB Conc 30.9 g/dL (30.0-36.0); Mean Corpuscular Hemoglobin 28.3 pg (28.0-34.0); Mean Corpuscular Volume 91.6 fl (80-94); Mean Platelet Volume 9.4 fL (7.4-10.4); Monocytes # 0.3 10^3/uL (0.2-0.9); Monocytes % 6.1 %; Neutrophils # 2.99 10^3/uL (1.8-7.7); Neutrophils % 65.2 %; Nucleated Red Blood Cells % 0 %; Platelet Count 185 10^3/cmm (130-400); Red Blood Count 2.51 10^6/uL (4.1-5.3); White Blood Count 4.6 10^3/uL (4.0-10.0)
[2022-10-04 04:31] LABS: Anion Gap 16.4 (5-19); Blood Urea Nitrogen 31 mg/dL (6-20); Calcium 9.2 mg/dL (8.5-10.5); Carbon Dioxide 28 mmol/L (22-29); Chloride 96 mmol/L (98-107); Glomerular Filtration Rate 10.9 mL/min (90-130); Glucose 117 mg/dL (65-115); Osmolality Calculated 290 mOsm/kg (285-295); Potassium 4.4 mmol/L (3.5-5.1); Sodium 136 mmol/L (136-145)
[2022-10-04] MEDS: morphine 4 mg/mL SDV 1 mL 1 MG IVP ×2 (05:32→13:56)
[2022-10-04] MEDS: ipratropium-albuterol 3 mL Neb INHALATION ×2 (07:26→14:02)
--- NOTE | 2022-10-04 08:41 | P.PN_ITS ---
Subjective Subjective: no new complaints Medications: Reviewed: Yes Vitals/I&O/Wt Last Vital Signs Temp 98.5 F 10/04/22 08:00 Pulse 63 10/04/22 08:00 Resp 17 10/04/22 08:00 BP 200/100 10/04/22 08:25 Pulse Ox 96 10/04/22 08:00 O2 Del Method Nasal Cannula 10/04/22 08:00 O2 Flow Rate 4 10/03/22 23:23 FiO2 35 10/02/22 02:57 10/03/22 10/04/22 10/04/22 22:59 06:59 14:59 Intake Total 830 / 1080 400 / 1480 Output Total 0 / 0 Balance 830 / 1080 400 / 1480 Weight last 48 hrs Weight 78.199 kg Weight 76.771 kg Weight 73.3 kg Data 10/04/22 04:00 10/04/22 04:00 A&P Assessment and plan (1) End-stage renal disease on hemodialysis: Plan 1. End-stage renal disease: On HD per Thursday as outpatient. HD today 2. Hypertension: Blood pressure elevated, UF as tolerated and home meds to be restarted 3. Community-acquired pneumonia: On antibiotics of Rocephin and Zithromax. 4. Altered mental status: Likely multifactorial secondary to uremia and sepsis and respiratory failure. 4. Acute on chronic respiratory failure: Multifactorial 5. Anemia: Hemoglobin 7.7, TREY ordered, transfusion if hemoglobin less than 7 Patient evaluated using audiovisual cart. Time spent 45 minutes. Attestations Medical Necessity Statement*: per medicine Coding Level of Care Code Acute Code for [facility] Fwd Diagnoses End-stage renal disease on hemodialysis N18.6; Z99.2
[2022-10-04] MEDS: isosorbide mononitrate ER 60 mg Tablet 240 MG PO (10:11)
[2022-10-04] MEDS: carvedilol 12.5 mg Tablet PO (10:11)
[2022-10-04] MEDS: hyDRALAzine 25 mg Tablet PO (10:11)
[2022-10-04] MEDS: cloNIDine 0.1 mg Tablet 0.3 MG PO (10:11)
[2022-10-04] MEDS: labetalol 5 mg/mL SDV 20mL 10 MG IVP (10:12)
[2022-10-04] MEDS: clopidogrel 75 mg Tablet PO (10:12)
[2022-10-04] MEDS: losartan 50 mg Tablet PO (10:12)
--- NOTE | 2022-10-04 10:30 | PC.NURSE ---
Pt in dialysis. BP is 210/120. PRN Labetalol push and PO BP medications given. Will give rest of scheduled medications post dialysis treatment. Dr. Gonzalez notified.
--- NOTE | 2022-10-04 10:56 | PC.SOCIAL ---
IMM Update pg 2 of IMM updated and reviewed w/ patient. Copy provided and copy dated, initialed and placed in chart.
[2022-10-04] MEDS: ferrous gluconate 324 mg Tablet PO (11:54)
[2022-10-04] MEDS: aspirin 81 mg EC Tablet PO (11:54)
[2022-10-04] MEDS: cyanocobalamin 1,000 mcg Tablet 1000 MCG PO (11:54)
[2022-10-04] MEDS: pantoprazole DR 40 mg Tablet PO (11:55)
[2022-10-04] MEDS: quetiapine 25 mg Tablet PO (11:55)
[2022-10-04] MEDS: LORazepam 1 mg Tablet PO (12:06)
[2022-10-04] MEDS: cefTRIAXone 1,000 MG in sodium chloride 0.9% (plus) 50 ML 100 MG IV (15:20)
--- NOTE | 2022-10-04 19:45 | P.DS_ITS ---
Discharge Providers Date of Admission: 10/01/22 14:09 Date of Discharge: October 04, 2022 Attending Provider at Admission: Bob Gonzalez Attending Provider at Discharge: Bob Gonzalez Primary Care Provider: Mal Peres DO Diagnoses at Discharge Discharge Diagnosis (1) End-stage renal disease on hemodialysis: Status: Acute Reason for Visit Reason for Visit: low 02 Hospital Course Hospital Course 42-year-old gentleman was admitted for assessment management due to dyspnea, hypoxia, he reportedly ran out of oxygen, on room air noted saturating in the 60s. Did not respond to oxygen 6 L, started on BiPAP. Initially encephalopathic with lethargy, this appears is not unusual for him with recurrent lethargy during prior admissions. Unable to provide history. Opioid, benzodiazepines and muscle relaxants were held. On review of systems subsequently with noted abdominal pain. On presentation respiratory failure secondary to decompensated CHF with fluid overload. He has history of ESRD and does not produce urine. He nephrology was consulted, he underwent extra sessions of hemodialysis. Additionally with noted community-acquired pneumonia, treated with ceftriaxone and azithromycin. With treatment with improvement in volume status and oxygenation. FiO2 requirement down to 4 L nasal cannula which he states is his baseline. Additional assessment by CT abdomen pelvis due to reported abdominal pain, with noted ascites, additional incidental findings as below. Once encephalopathy resolving and he was more awake, clarifying his pain more bothering him in the right groin. With concern for hernia evaluated by general surgery, but swelling in right groin noted to be secondary to right scrotal hydrocele. Consideration for urology evaluation, although consultation unavailable at this time. Anticipated to also achieve some relief from diagnostic and therapeutic paracentesis. Eliquis was held with anticipation of paracentesis. He continued on empiric antibiotics. Abdominal exam benign, remained without leukocytosis and afebrile. Discussed with him consideration of SBP, although this appears to be less likely. However, as his condition has improved, mental status improved, today after hemodialysis he decided he no longer wish to continue hospitalization and requested to be discharged. He did not want to have any further assessment or treatment in the hospital. He is agreeable to and wants to follow-up for paracentesis on outpatient basis. He is also given referral to urology for follow-up hydrocele to consider options for treatment. During hospitalization required additional treatments for poorly controlled hypertension. At discharge minoxidil dose is increased to 5 mg, losartan up to 100 mg, he is asked to continue monitoring blood pressure to continue optimization of control. He is asked to follow-up also regarding chronic anemia. Due to her current lethargy he is asked to change his benzodiazepine medications to as needed basis. He did have an episode of severe anxiety in the hospital and required a dose of lorazepam, so he is asked to at this time use it only in case of severe anxiety episode, as well as) only if insomnia. Please follow-up and attempt to wean off benzodiazepines. He is asked to stop muscle relaxants. Taper off/reduce/avoid where possible any other medications that may cause alteration in mental status. Physical Exam Const: COMMON NORMALS: patient oriented x3 GENERAL APPEARANCE: lethargic ORIENTATION/CONSCIOUSNESS: Yes lethargic OTHER: Undergoing dialysis, awake, alert. Resp: COMMON NORMALS: normal respiratory effort and clear to auscultation bilaterally AUSCULTATION: clear to auscultation bilaterally Cardio: COMMON NORMALS: regular rhythm, S1 normal heart sound present, S2 normal heart sound present and No murmurs present (Cardio) RHYTHM: regular rhythm HEART SOUNDS: S1 normal heart sound present and S2 normal heart sound present GI: COMMON NORMALS: Normal to inspection, nondistended, normoactive bowel sounds present, Soft to palpation and non-tender PALPATION: Yes Soft to palpation OTHER: Abdomen nontender. : OTHER: Some tenderness in right groin swelling. Extremity: COMMON NORMALS: no joint enlargement GENERAL: Yes edema Neuro: COMMON NORMALS: patient oriented x3 and moves all extremities SENSORIUM/ORIENTATION: Yes lethargic Discharge Data Studies Completed and Pending Completed Studies During Hospitalization Category Date Time Status CT abdomen pelvis wo con [id number] Urgent Cat Scan 10/01/22 18:49 Completed XR chest 1V portable [id number] Stat Exams 10/01/22 10:26 Completed Pending at discharge Category Date Time Status Blood Culture Stat Lab 10/01/22 11:22 Results Cyto Order Verification Routine Lab 10/04/22 11:21 Ordered Miscellaneous Test Routine Lab 10/01/22 14:25 Ordered Radiology Impressions Chest X-Ray 10/01/22 10:26 IMPRESSION: 1. Areas of the patchy airspace infiltrate in the bilateral lower lung zone suspicious for active pneumonia. 2. Extensive superimposed chronic interstitial changes throughout both lungs. 3. Significant cardiac enlargement unchanged. Abdomen/Pelvis CT 10/01/22 18:49 IMPRESSION: 1. Bibasilar atelectasis versus pneumonia. 2. Mild pulmonary edema, mild cardiomegaly, and small bilateral pleural effusions. 3. Large volume ascites and mild anasarca. 4. Hepatomegaly and possible chronic liver disease. Correlate with LFTs. 5. Bilateral renal atrophy. 6. Diverticulosis coli. 7. Right scrotal hydrocele. Laboratory Results WBC 4.6 10^3/uL (4.0-10.0) 10/04/22 04:00 RBC 2.51 10^6/uL (4.1-5.3) L 10/04/22 04:00 Hgb 7.1 g/dL (11.7-16.6) L 10/04/22 04:00 Hct 23.0 % (42.0-52.0) L 10/04/22 04:00 MCV 91.6 fl (80-94) 10/04/22 04:00 MCH 28.3 pg (28.0-34.0) 10/04/22 04:00 MCHC 30.9 g/dL (30.0-36.0) 10/04/22 04:00 RDW 17.0 % (12.1-15.1) H 10/04/22 04:00 Plt Count 185 10^3/cmm (130-400) 10/04/22 04:00 MPV 9.4 fL (7.4-10.4) 10/04/22 04:00 Neut % (Auto) 65.2 % 10/04/22 04:00 Lymph % (Auto) 15.7 % 10/04/22 04:00 [place] % (Auto) 6.1 % 10/04/22 04:00 Eos % (Auto) 11.3 % 10/04/22 04:00 Baso % (Auto) 1.5 % 10/04/22 04:00 Neut # (Auto) 2.99 10^3/uL (1.8-7.7) 10/04/22 04:00 Lymph # (Auto) 0.7 10^3/uL (0.8-4.8) L 10/04/22 04:00 [place] # (Auto) 0.3 10^3/uL (0.2-0.9) 10/04/22 04:00 Eos # (Auto) 0.5 10^3/uL (0.0-0.8) 10/04/22 04:00 Baso # (Auto) 0.1 10^3/uL (0.0-0.1) 10/04/22 04:00 Nucleated RBC % (auto) 0 % 10/04/22 04:00 Nucleated RBCs # 0.0 /100WBC 10/04/22 04:00 PT 16.70 SECONDS (12.1-14.9) H 10/01/22 10:30 INR 1.31 (0.8-1.2) H 10/01/22 10:30 Specimen Type Arterial 10/01/22 10:34 Sample Site Radial, right 10/01/22 10:34 ABG pH 7.40 (7.35-7.45) 10/01/22 10:34 ABG pCO2 51.2 mmHg (35-45) H 10/01/22 10:34 ABG pO2 54.1 mmHg (80.0-100.0) L 10/01/22 10:34 ABG HCO3 31.6 mmol/L (22-26) H 10/01/22 10:34 ABG O2 Saturation 87.3 10/01/22 10:34 ABG Base Excess 6.0 mmol/L (-2.0-2.0) H 10/01/22 10:34 Alexei Test Pos 10/01/22 10:34 A-a O2 Gradient 26.6 mmHg (5-10) H 10/01/22 10:34 Hematocrit 25.4 % (42-52) L 10/01/22 10:34 Hgb O2 Saturation 83.2 % (95-100) L 10/01/22 10:34 Carboxyhemoglobin 4.0 %THgb (0.4-20.1) 10/01/22 10:34 Methemoglobin 0.7 % (0.4-1.5) 10/01/22 10:34 Total Hemoglobin 8.3 g/dL (14-18) L 10/01/22 10:34 Sodium 134.0 mmol/L (131-143) 10/01/22 10:34 Potassium 4.8 mmol/L (3.5-5.0) 10/01/22 10:34 Glucose 138.0 mg/dL (70-115) H 10/01/22 10:34 Ionized Calcium 1.2 mmol/L (1.1-1.4) 10/01/22 10:34 O2 Delivery Device Nc 10/01/22 10:34 O2 Liters/Min 6.0 % 10/01/22 10:34 FiO2 45.0 % 10/01/22 10:34 Media Arts Professor ID Monro 10/01/22 10:34 Sodium 136 mmol/L (136-145) 10/04/22 04:00 Potassium 4.4 mmol/L (3.5-5.1) 10/04/22 04:00 Chloride 96 mmol/L (98-107) L 10/04/22 04:00 Carbon Dioxide 28 mmol/L (22-29) 10/04/22 04:00 Anion Gap 16.4 (5-19) 10/04/22 04:00 BUN 31 mg/dL (6-20) H 10/04/22 04:00 Creatinine 5.8 mg/dL (0.7-1.2) H* 10/04/22 04:00 GFR Calculation 10.9 mL/min (90-130) L 10/04/22 04:00 Glucose 117 mg/dL (65-115) H 10/04/22 04:00 Calculated Osmolality 290 mOsm/kg (285-295) 10/04/22 04:00 Lactic Acid 0.9 mmol/L (0.5-2.2) 10/01/22 11:14 Calcium 9.2 mg/dL (8.5-10.5) 10/04/22 04:00 Phosphorus 7.0 mg/dL (2.5-4.5) H 10/01/22 10:30 Magnesium 2.1 mg/dL (1.7-2.3) 10/01/22 10:30 Total Bilirubin 0.9 mg/dL (0.15-1.2) 10/01/22 10:30 AST 12 U/L (0-40) 10/01/22 10:30 ALT < 5 U/L (0-41) 10/01/22 10:30 Alkaline Phosphatase 110 U/L (40-130) 10/01/22 10:30 Ammonia 24 umol/L (16-60) 10/01/22 18:30 Troponin T Baseline 101 ng/L (0-15) H* 10/01/22 15:07 Troponin T 120 Minute 96.94 ng/L (0-15) H 10/01/22 18:30 Delta Troponin T -4.06 ABS# (0-10) L 10/01/22 18:30 Troponin T Hi Sens 6Hr 100.3 ng/L (0-15) H 10/01/22 19:56 Troponin T Hi Sens 6Hr Delta -0.7 ng/L (0-12) L 10/01/22 19:56 Total Protein 7.6 g/dL (6.6-8.7) 10/01/22 10:30 Albumin 4.1 g/dL (3.5-5.2) 10/01/22 10:30 Globulin 3.5 g/dL (1.3-4.6) 10/01/22 10:30 Procalcitonin 0.44 ng/mL (0-0.5) 10/01/22 11:14 TSH 2.03 uIU/mL (0.27-4.20) 10/01/22 18:30 Nasal Influ A H1 2008 PCR Not detected (NOT DETECT) 10/01/22 14:55 Adenovirus (PCR) Not detected (NOT DETECT) 10/01/22 14:55 C. pneumoniae DNA (PCR) Not detected (NOT DETECT) 10/01/22 14:55 Coronavirus 229E (PCR) Not detected (NOT DETECT) 10/01/22 14:55 Hep Bs Antigen Non-reactive (Nonreactive) 10/01/22 10:30 Hep Bs Antibody 102.3 (11.5-1000) 10/01/22 10:30 Hep B Core Total Ab Non-reactive (Nonreactive) 10/01/22 10:30 Human Metapneumovir PCR Not detected (NOT DETECT) 10/01/22 14:55 Influenza A (H1) PCR Not detected (NOT DETECT) 10/01/22 14:55 Influenza A (H3) PCR Not detected (NOT DETECT) 10/01/22 14:55 Influenza Type A (PCR) Not detected (NOT DETECT) 10/01/22 14:55 Influenza Type B (PCR) Not detected (NOT DETECT) 10/01/22 14:55 M. pneumoniae (PCR) Not detected (NOT DETECT) 10/01/22 14:55 Parainfluenza 1 (PCR) Not detected (NOT DETECT) 10/01/22 14:55 Parainfluenza 2 (PCR) Not detected (NOT DETECT) 10/01/22 14:55 Parainfluenza 3 (PCR) Not detected (NOT DETECT) 10/01/22 14:55 Parainfluenza 4 (PCR) Not detected (NOT DETECT) 10/01/22 14:55 RSV Type A (PCR) Not detected (NOT DETECT) 10/01/22 14:55 RSV Type B (PCR) Not detected (NOT DETECT) 10/01/22 14:55 Entero/Rhino (PCR) Not detected (NOT DETECT) 10/01/22 14:55 SARS-CoV-2 (PCR) Not detected (NOT DETECT) 10/01/22 14:55 Vitals Last Vital Signs Temp 98.2 F 10/04/22 16:00 Pulse 61 10/04/22 16:00 Resp 17 10/04/22 16:00 BP 193/97 10/04/22 16:00 Pulse Ox 96 10/04/22 18:19 O2 Del Method Nasal Cannula 10/04/22 17:34 O2 Flow Rate 2 10/04/22 17:34 FiO2 35 10/02/22 02:57 Discharge Plan Discharge Patient Disposition: Home Condition: Stable Prescriptions: New cefdinir 300 mg capsule 300 mg PO BID 5 Days Qty: 10 0RF azithromycin 250 mg tablet 250 mg PO DAILY 5 Days Qty: 5 0RF Continued clonidine HCl 0.3 mg tablet 0.3 mg PO TID Qty: 90 2RF Incruse Ellipta 62.5 mcg/actuation blister with device 1 inh INHALATION DAILY Qty: 30 2RF quetiapine 25 mg tablet 25 mg PO DAILY Qty: 90 0RF nitroglycerin 0.4 mg tablet, sublingual 0.4 mg SUBLINGUAL Q5M PRN (Reason: Chest Pain) Qty: 30 5RF Rx Instructions: do not exceed 3 doses per episode clopidogrel 75 mg tablet 75 mg PO DAILY Qty: 90 3RF (DME) DME - BIPAP See Rx Instructions .Route .MEDSUPPLY Qty: 1 0RF Rx Instructions: Inspiratory Pressure: 16mmHg Expiratory Pressure: 8 mmHg Will need oxygen bled in to the machine to maintain sats >/= 90%. (DME) DME - Oxygen See Rx Instructions .Route .MEDSUPPLY Qty: 1 0RF Rx Instructions: Supplemental Oxygen bled into BIPAP at 2-3L to maintain oxygen sats at >/= 90%. Auryxia 210 mg iron Tablet 420 mg PO TID Rx Instructions: administer with a meal aspirin 81 mg tablet,delayed release (DR/EC) 81 mg PO DAILY pantoprazole 40 mg tablet,delayed release (DR/EC) 40 mg PO DAILY albuterol sulfate 90 mcg/actuation HFA aerosol inhaler 2 puff inhalation Q6H PRN (Reason: Shortness Of Breath Or Wheezing) polyethylene glycol 3350 [Miralax] 17 gram Powder In Packet 17 g PO DAILY isosorbide mononitrate 120 mg tablet extended release 24 hr 240 mg PO DAILY oxycodone 5 mg tablet 5 mg PO Q8H PRN (Reason: Pain) RenaPlex-D 800 mcg-12.5 mg -2,000 unit tablet 1 tab PO DAILY cyanocobalamin (vitamin B-12) 1,000 mcg capsule 1,000 mcg PO DAILY Qty: 30 0RF ferrous gluconate 324 mg (37.5 mg iron) tablet 324 mg PO BID Qty: 60 0RF carvedilol 6.25 mg tablet 12.5 mg PO BID 30 Days Qty: 120 0RF Changed losartan 50 mg tablet 100 mg PO DAILY Qty: 60 0RF minoxidil 2.5 mg Tablet 5 mg PO BID Qty: 60 0RF lorazepam 1 mg tablet 1 mg PO DAILY PRN (Reason: Anxiety) Qty: 0.1 0RF Rx Instructions: No prescirption, only change to PRN clonazepam 0.5 mg tablet 0.5 mg PO BEDTIME PRN (Reason: Insomnia) Qty: 0.1 2RF Rx Instructions: No additional quantity, only change to PRN Held Eliquis 5 mg Tablet 2.5 mg PO BID Hold Instructions: Resume on 10/08/22. Discontinued tizanidine 4 mg tablet 4 mg PO Q8H PRN (Reason: muscle spasticity) Qty: 60 2RF cyclobenzaprine 10 mg tablet 10 mg PO Q12H PRN (Reason: muscle spasm) Qty: 30 2RF Discharge Orders: Discharge Order (Routine); Ordered 10/04/22 Ordered By: Bob Gonzalez Other Ambulatory Orders: US paracentesis abd w [id number] (Routine) Timeframe: 2 Days Facility: [facility] - Location: Radiology Ordered By: Bob Gonzalez Referrals: RADIOLOGY [Provider Group] - 1-3 days (Paracentesis. Please obtain GS and culture, albumin, send rest for cytology) UROLOGY GROUP [Provider Group] - 1 week (R groin hydrocele) Mal Peres DO [Primary Care Provider] - 4-7 days Discharge Diet: As Directed Patient Instructions: Heart Failure (GEN), Hydrocele (GEN), Ascites (GEN), Hypertension (GEN), Pneumonia (GEN), Opioid Safety Activity Restrictions/Additional Instructions: Consider returning to the hospital resume your hospitalization or be transferred to another facility to complete diagnostic evaluation and treatment including paracentesis with additional lab studies to make sure there are no signs of fluid infection. Assessment by urology. Complete antibiotic course for pneumonia. Continue hemodialysis for continued fluid removal with congestive heart failure. Continue renal dialysis diet. Do not take medications that may make his if you already are sleepy as this may be dangerous may lead to suppression of your breathing, stopping breathing, coma and/or . In particular avoid taking clonazepam, lorazepam, oxycodone and quetiapine if you are feeling sleepy. Please stop taking cyclobenzaprine and tizanidine. Please do not take lorazepam at any other time unless you are having severe anxiety. Please do not take clonazepam unless you are having insomnia. Please do not combine these medications as they may have cumulative effect especially with absent renal function. Please work with your primary doctor to gradually discontinue these medications and switch to safer alternatives. Your blood pressure medications are increased to help control your blood pressure. Please monitor blood pressure 3 times daily at home, write down values to bring to your appointment to continue help improve control. Minoxidil dose is increased to 5 mg, losartan dose is increased to 100 mg. Gradually you should target blood pressure 120/80, further increases in medication may be required. 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 Follow-up with your primary doctor and also clinic regarding chronic anemia. Please follow-up with urology with regards to swelling in your right groin to discuss options for treatment of the hydrocele. Discharge Attestations Time Spent in Discharge Care*: greater than 30 min Status at Discharge: Cognitive status at discharge: cognitively intact , Behavioral status at discharge: cooperative , Quality Metrics Clinical Quality Measures [ No reported AMI, CVA or VTE this stay] Coding Level of Care Code 55982 Total time (in minutes) for Discharge: 50 Diagnoses End-stage renal disease on hemodialysis N18.6; Z99.2
== END 2022-10-04 17:50 | disposition home or self-care (01) | DRG 291 ==
LOC: ER 12:54 → ICU 14:56 → MEDSURG 10-03 23:07
PROVIDERS: Hospitalist; Admitting Provider Internal Medicine; Emergency Provider Emergency Medicine; PCP Family Medicine; Visit Provider Internal Medicine
DX: I13.2 Hypertensive heart and chronic kidney disease with heart failure and with stage 5 chronic kidney disease, or end stage renal disease (principal); I50.33 Acute on chronic diastolic (congestive) heart failure; N18.6 End stage renal disease; J18.9 Pneumonia, unspecified organism; J96.21 Acute and chronic respiratory failure with hypoxia; G93.40 Encephalopathy, unspecified; R18.8 Other ascites; Z99.2 Dependence on renal dialysis; Z91.158 Patient's noncompliance with renal dialysis for other reason; N43.3 Hydrocele, unspecified; F41.1 Generalized anxiety disorder; Z79.02 Long term (current) use of antithrombotics/antiplatelets; Z79.82 Long term (current) use of aspirin; Z79.51 Long term (current) use of inhaled steroids; I27.20 Pulmonary hypertension, unspecified; M51.36 Other intervertebral disc degeneration, lumbar region; I25.10 Atherosclerotic heart disease of native coronary artery without angina pectoris; Z95.5 Presence of coronary angioplasty implant and graft; Z86.711 Personal history of pulmonary embolism; F17.210 Nicotine dependence, cigarettes, uncomplicated; F32.A Depression, unspecified; J44.9 Chronic obstructive pulmonary disease, unspecified; Z86.16 Personal history of COVID-19; Z99.81 Dependence on supplemental oxygen; G89.29 Other chronic pain; D63.1 Anemia in chronic kidney disease; Z79.891 Long term (current) use of opiate analgesic
CPT/HCPCS: 12345; 36415; 36600; 71045; 74176; 80048; 80051; 80053; 82140; 82330; 82805; 83605; 83735; 84100; 84145; 84443; 84484; 85025; 85610; 86705; 86706; 87040; 87340; 87486; 87581; 87633; 90935; 93005; 94640; 94660; 94664; 96372; 96376; 99291; J0456; J0696; J0885; J1644; J2270; J3490; J7050; Q3014

== ENCOUNTER 2022-10-09 11:12 | Day surgery (SDC) | payer MEDICARE, MEDICAID, SELFPAY ==
[2022-10-07 09:05] VITALS: BMI 22.4
--- NOTE | 2022-10-09 11:20 | US_ITS ---
WS: [id number] ULTRASOUND-GUIDED THERAPEUTIC PARACENTESIS Procedure, risks, and complications have been explained to the patient. Consent is obtained. Utilizing aseptic technique and 1% buffered lidocaine, a small dermatome was made through which a 5 F rench Yueh catheter was inserted. Approximately 3500 ml of light red peritoneal fluid was obtained wi thout difficulty. No complications encountered. US/US paracentesis abd w [id number] IMPRESSION: Uncomplicated paracentesis yielding 3500 ml of peritoneal fluid.
[2022-10-09 11:25] VITALS: BP 174/103; PULSE 84; RESP 18; TEMP 36.7; O2SAT 94
[2022-10-09] MEDS: lidocaine 1% INJ 10 mL (per mL) XX (12:21)
[2022-10-09] MEDS: albumin 50 G/200 ML BAG 60 G IV (12:26)
== END 2022-10-09 12:52 | disposition home or self-care (01) ==
LOC: GILAB 11:12
PROVIDERS: PCP Family Medicine; Visit Provider Internal Medicine Nephrology
PROC: (CPT 49082; principal; 2022-10-09 12:00)
DX: R18.8 Other ascites (principal)
CPT/HCPCS: 49083; 96365; P9046

== ENCOUNTER 2022-10-21 02:02 | Emergency (ER) | payer MEDICARE, MEDICAID, SELFPAY ==
--- NOTE | 2022-10-21 02:06 | USR_ITS ---
PROCEDURE INFORMATION: Exam: US Scrotum Exam date and time: 10/21/2022 3:35 AM Age: 42 years old Clinical indication: Groin pain and scrotum pain; Patient HX: Patient was seen here 06/09/2022 = scrotal sac thickening, bilateral hypervascular epididymitis r>l. ; Additional info: Testicle pain TECHNIQUE: Imaging protocol: Real-time ultrasound of the scrotum and contents with color Doppler and image documentation. COMPARISON: US scrotum [id number] 06/09/2022 3:59 PM FINDINGS: Right testicle: Normal. No mass. No torsion. Normal vascular flow. Left testicle: Normal. No mass. No torsion. Normal vascular flow. Epididymides: Tiny epididymal head cyst measuring 3 mm noted on the right. No evidence of hyperemia. Scrotum/soft tissues: There is diffuse thickening of the scrotal wall measuring up to 9 mm. Right-sided hydrocele noted. No varicocele identified. US/US scrotum [id number] IMPRESSION: 1. Diffuse thickening of the scrotal wall. Cellulitis should be considered. 2. Right-sided hydrocele. 3. No evidence of testicular torsion, orchitis or epididymitis.
[2022-10-21 02:09] VITALS: BMI 22.0
[2022-10-21 02:10] VITALS: BP 208/127; PULSE 90; RESP 16; TEMP 36.6; O2SAT 94
--- NOTE | 2022-10-21 02:20 | W.ED.MALEGU ---
HPI - Male Genitourinary General: Chief complaint: Urogenital-Male Stated complaint: Groin Pain Time Seen by Provider: 10/21/22 02:17 Source: patient Mode of arrival: ambulatory Limitations: no limitations History of Present Illness: 42-year-old male history of end-stage renal disease he has ascites and history of an inguinal hernia as well. He states that he hit his right testicle on a baby gate yesterday has been having increasing pain he was seen at another facility was transferred here for an ultrasound of the testicle he states he has pain in his right testicle he rates a 6 out of 10. He denies any other injuries or pain denies any vomiting or diarrhea Associated symptoms: Deny dysuria, nausea or vomiting Review of Systems Const: Denies: fever(s) or chills ENMT: Denies: throat pain or dental pain Card: Denies: chest pain Resp: Denies: dyspnea GI: Denies: abdominal pain, nausea, vomiting or diarrhea : Reports: testicular pain; Denies: dysuria Musc: Denies: neck pain or back pain Skin/Breast: Denies: rash Neuro: Denies: headache(s) PFSH ED PFSH: Medical History Abdominal ascites history of intermittent paracentesis, transudative fluid; prior work up has included negative biopsy, ceruloplasmin level normal, low iron, high ferritin, normal TIBC, negative HIV, hepatitis panel negative, JESÚS/SCL 70/double-stranded DNA antibodies negative, Alpha-fetoprotein level unremarkable, nonalcoholic by history, has hepatomegaly and splenomegaly Anemia chronic kidney disease Anxiety Arteriovenous fistula for hemodialysis in place, secondary Atherosclerosis of coronary artery Stent and balloon angioplasty to proximal 1 OM branch Chronic abdominal pain Chronic respiratory failure on home oxygen and bipap Congestive heart failure preserved ejection fraction COPD (chronic obstructive pulmonary disease) COVID 05/25 Degenerative disc disease, lumbar Depression Epididymitis 06/2022 ESRD on dialysis Generalized anxiety disorder with panic attacks History of cardiovascular stress test 07/2022 at [facility] perfusion imaging probably normal, no reversible defects, small fixed defect in apical anterior wall, EF 54%, nonischemic response to stress by EKG criteria History of coronary angiogram 11/2021 - patent stent History of home oxygen therapy Hypertension uncontrolled Hypertensive emergency recurrent episodes Hypertensive urgency Inguinal hernia Low back pain Nicotine dependence, cigarettes, with other nicotine-induced disorders Patient under care of multiple providers Pulmonary embolism 09/21 CTA inconclusive for very tiny peripheral LEFT lower lobe pulmonary artery sub segmental emboli versus poor opacification. Pulmonary hypertension Umbilical hernia Urethral stricture Uses bilevel positive airway pressure (BPAP) ventilation at home Surgical History H/O hand surgery Amputation right 2&3 fingers 2017 History of adenoidectomy Stented coronary artery Family History Other Hypertension Social History Smoking and tobacco status: current every day smoker cigarettes Packs smoked per day: 1.5 Years cigarettes smoked: 21 [ Other cigarette details: started age 20, currently 0.5ppd ] Alcohol intake: never Substance/Drug Use: never Number of children: 3 Current occupational status: disabled Do you think of yourself as: Straight/Heterosexual Physical Exam Const: COMMON NORMALS: no acute distress and patient oriented x3 HENMT: COMMON NORMALS: normocephalic and atraumatic HEAD & SCALP: normocephalic and atraumatic Eye: COMMON NORMALS: conjunctivae normal CONJUNCTIVA: Yes conjunctivae normal Neck/C-Spine: COMMON NORMALS: supple Chest: COMMONS NORMALS: normal inspection of the chest Resp: COMMON NORMALS: normal respiratory effort Cardio: COMMON NORMALS: regular rate RATE: regular rate GI: COMMON NORMALS: Normal to inspection, nondistended, normoactive bowel sounds present, Soft to palpation and non-tender PALPATION: Yes Soft to palpation : OTHER: Right inguinal hernia nontender testicle here is normal with minimal tenderness Extremity: COMMON NORMALS: normal to inspection Neuro: COMMON NORMALS: patient oriented x3 Psych: COMMON NORMALS: mental status grossly normal Skin: COMMON NORMALS: no rashes or lesions noted GENERAL SKIN EXAM: no rashes or lesions noted Course Vital Signs: Vital signs: Vital Signs Temperature 97.9 F 10/21/22 04:39 Pulse Rate 108 H 10/21/22 04:39 Respiratory Rate 16 10/21/22 04:39 Blood Pressure 188/121 10/21/22 04:39 Pulse Oximetry 98 10/21/22 04:39 Oxygen Delivery Me thod Nasal Cannula 10/21/22 03:30 Oxygen Flow Rate 4 10/21/22 03:30 MDM - Male Medical Decision Making She also presents with testicle pain after hitting it on a child's gait his ultrasound here showed no signs of torsion he does have a hydrocele he has no signs of any incarcerated hernia he is stable for discharge he is to follow-up with urology and return if worsening. Medical Records I reviewed the patient's medical records. Discharge Plan Discharge Patient Disposition: Home Clinical Impression: Testicular pain, right, Hydrocele, Hypertension Condition: Stable Prescriptions: No Action clonidine HCl 0.3 mg tablet 0.3 mg PO TID Qty: 90 2RF Incruse Ellipta 62.5 mcg/actuation blister with device 1 inh INHALATION DAILY Qty: 30 2RF quetiapine 25 mg tablet 25 mg PO DAILY Qty: 90 0RF nitroglycerin 0.4 mg tablet, sublingual 0.4 mg SUBLINGUAL Q5M PRN (Reason: Chest Pain) Qty: 30 5RF Rx Instructions: do not exceed 3 doses per episode (DME) DME - BIPAP See Rx Instructions .Route .MEDSUPPLY Qty: 1 0RF Rx Instructions: Inspiratory Pressure: 16mmHg Expiratory Pressure: 8 mmHg Will need oxygen bled in to the machine to maintain sats >/= 90%. (DME) DME - Oxygen See Rx Instructions .Route .MEDSUPPLY Qty: 1 0RF Rx Instructions: Supplemental Oxygen bled into BIPAP at 2-3L to maintain oxygen sats at >/= 90%. Auryxia 210 mg iron Tablet 420 mg PO TID Rx Instructions: administer with a meal aspirin 81 mg tablet,delayed release (DR/EC) 81 mg PO DAILY pantoprazole 40 mg tablet,delayed release (DR/EC) 40 mg PO DAILY albuterol sulfate 90 mcg/actuation HFA aerosol inhaler 2 puff inhalation Q6H PRN (Reason: Shortness Of Breath Or Wheezing) polyethylene glycol 3350 [Miralax] 17 gram Powder In Packet 17 g PO DAILY Eliquis 5 mg Tablet 2.5 mg PO BID Hold Instructions: Resume on 10/08/22. Eliquis 5 mg tablet 5 mg PO BID isosorbide mononitrate 120 mg tablet extended release 24 hr 240 mg PO DAILY oxycodone 5 mg tablet 5 mg PO Q8H PRN (Reason: Pain) RenaPlex-D 800 mcg-12.5 mg -2,000 unit tablet 1 tab PO DAILY losartan 50 mg tablet 100 mg PO DAILY Qty: 60 0RF minoxidil 2.5 mg Tablet 5 mg PO BID Qty: 60 0RF lorazepam 1 mg tablet 1 mg PO DAILY PRN (Reason: Anxiety) Qty: 0.1 0RF Rx Instructions: No prescirption, only change to PRN clonazepam 0.5 mg tablet 0.5 mg PO BEDTIME PRN (Reason: Insomnia) Qty: 0.1 2RF Rx Instructions: No additional quantity, only change to PRN cyanocobalamin (vitamin B-12) 1,000 mcg capsule 1,000 mcg PO DAILY Qty: 30 0RF ferrous gluconate 324 mg (37.5 mg iron) tablet 324 mg PO BID Qty: 60 0RF carvedilol 6.25 mg tablet 12.5 mg PO BID 30 Days Qty: 120 0RF Discharge Orders: Discharge ED (Routine); Ordered 10/21/22 Ordered By: Dayana Nunez Referrals: Mal Peres DO [Primary Care Provider] - Discharge Diet: Advance as tolerated Discharge Activity: Resume usual activity Patient Instructions: Hydrocele (ED), Testicle Pain (ED) Coding Level of Care Code ED Termite Helper for Cristi Diane
[2022-10-21] MEDS: HYDROcodone-acetaminophen 5-325 mg Tablet 1 TAB PO (02:25)
[2022-10-21] MEDS: hyDRALAzine 20 mg/mL INJ 1 mL 10 MG IM (02:25)
[2022-10-21 02:46] VITALS: BP 222/130; RESP 16; O2SAT 100
[2022-10-21] MEDS: morphine 4 mg/mL SDV 1 mL IM (03:13)
[2022-10-21] MEDS: hyDRALAzine 20 mg/mL INJ 1 mL IM (03:13)
[2022-10-21 03:30] VITALS: BP 206/112; PULSE 98; RESP 16; O2SAT 99
[2022-10-21] MEDS: LORazepam 2 mg/mL INJ 1 mL 1 MG IM (03:48)
[2022-10-21 04:00] VITALS: BP 188/121; PULSE 108; RESP 16; O2SAT 98
[2022-10-21 04:39] VITALS: BP 188/121; PULSE 108; RESP 16; TEMP 36.6; O2SAT 98
--- NOTE | 2022-10-21 10:50 | PC.SOCIAL ---
Addendum entered by Sharmin Scott 11/10/22 15:18: manager patient called to confirm that [facility] received patients information, clinic had received it, will call patient with appointment information. Original Note: Urology Referral Referral faxed to [facility] for f/u at this time.
== END 2022-10-21 04:40 | disposition home or self-care (01) ==
PROVIDERS: Emergency Provider Emergency Medicine; PCP Family Medicine
DX: N50.811 Right testicular pain (principal); N43.3 Hydrocele, unspecified; Z79.01 Long term (current) use of anticoagulants; Z79.82 Long term (current) use of aspirin; F17.210 Nicotine dependence, cigarettes, uncomplicated; I25.10 Atherosclerotic heart disease of native coronary artery without angina pectoris; J44.9 Chronic obstructive pulmonary disease, unspecified; I13.2 Hypertensive heart and chronic kidney disease with heart failure and with stage 5 chronic kidney disease, or end stage renal disease; N18.6 End stage renal disease; I50.9 Heart failure, unspecified; Z99.2 Dependence on renal dialysis
CPT/HCPCS: 76870; 96372; 99284; J0360; J2060; J2270

== ENCOUNTER 2022-12-05 10:15 | Day surgery (SDC) | payer MEDICARE, MEDICAID, SELFPAY ==
[2022-12-04 09:52] VITALS: BMI 22.4
--- NOTE | 2022-12-05 10:19 | US_ITS ---
WS: [id number] ULTRASOUND-GUIDED PARACENTESIS CLINICAL INFORMATION: ascites COMPARISON: None. Procedure Informed consent: The risks, benefits, and alternatives of the procedure were discussed with the mariah ent. Verbal and written consent was obtained. Timeout: A timeout was performed to confirm the correct patient, procedure, and site. Preparation: A suitable skin site was identified. The patient was prepped and draped in usual sterile fashion. Lidocaine 1% was used for local anesthesia. Catheter: 4 Cambodian One-step Yueh catheter. Side: LEFT Lower quadrant. Fluid Volume: 2500 ml Color: Clear yellow DISPOSITION: Discarded safely. Complications: None. Patient disposition: Discharged from the department in stable condition. US/US paracentesis abd w [id number] IMPRESSION: Uncomplicated ultrasound-guided paracentesis. Removal of 2500cc
--- NOTE | 2022-12-05 10:26 | SUR.PREOP ---
unable to confirm patients medications, he is unaware of what he is taking. states his sister takes care of medications. when telephone preop was done yesterday, pt was asked to please bring updated medication list. pt states he forgot the list on the table when he left this morning.
[2022-12-05 10:27] VITALS: BP 146/78; PULSE 87; RESP 17; TEMP 37.1; O2SAT 95
[2022-12-05 11:30] VITALS: BP 135/79; PULSE 83; RESP 16; O2SAT 93
--- NOTE | 2022-12-05 11:44 | SUR.PREOP ---
albumin not given. per dr. lewis if patient didn't drain 3,000 ml to not give albumin.
== END 2022-12-05 11:32 | disposition home or self-care (01) ==
PROVIDERS: Radiology Neuroradiology; PCP Family Medicine; Visit Provider Internal Medicine Nephrology
PROC: 0W9G3ZZ Drainage of Peritoneal Cavity, Percutaneous Approach (ICD-10-PCS; principal; 2022-12-05 11:00)
DX: R18.8 Other ascites (principal)
CPT/HCPCS: 49083

== ENCOUNTER 2023-01-09 10:29 | Emergency (ER) | payer MEDICARE, MEDICAID, SELFPAY ==
[2023-01-09 10:37] VITALS: BP 187/89; PULSE 98; RESP 22; TEMP 36.9; O2SAT 95; BMI 23.7
--- NOTE | 2023-01-09 10:53 | XR_ITS ---
WS: [id number] Portable AP upright chest, 01/09/2023 Clinical Data: dyspnea/cough Comparison: Portable chest, 10/01/2022 Findings: No nodules, masses or effusions are seen. The heart is enlarged. The pulmonary vascularity is increased. No pneumonia or pneumothorax is seen. Monitor leads are on the chest wall. There is an old right posterior lateral seventh rib fracture. Impression: Cardiomegaly and mild pulmonary vascular congestion.
--- NOTE | 2023-01-09 11:00 | ECG_ITS ---
[facility] Test Date: 2023-01-09 Pat Name: Mal Gibbs Department: Room: Gender: Male Administrative Appeals Tribunal Member: : 1980 Requested By: Pato Spencer Order Number: [id number] Mohini MD: Ruba Hussein M.D. Measurements Intervals [place] Rate: 97 P: 62 CO: 176 QRS: 72 QRSD: 110 T: 83 QT: 362 QTc: 461 Interpretive Statements SINUS RHYTHM LEFT ATRIAL ENLARGEMENT [-0.15mV P-WAVE IN V1/V2] LEFT VENTRICULAR HYPERTROPHY AND ST-T CHANGE [VOLTAGE CRITERIA PLUS ST/T ABNORMALITY] Compared to ECG 10/01/2022 18:09:32 Atrial abnormality now present Left ventricular hypertrophy now present ST (T wave) deviation now present Intraventricular conduction delay no longer present Electronically Signed On 01-09-2023 17:20:56 CDT by Ruba Hussein M.D. [id number]
[2023-01-09 11:02] VITALS: BP 174/109
--- NOTE | 2023-01-09 11:16 | W.ED.SOB ---
HPI - SOB/Dyspnea General: Chief Complaint: Shortness of Breath/Dyspnea Stated Complaint: sentbyGI/SOB Time Seen by Provider: 01/09/23 10:53 Source: patient Mode of arrival: ambulatory History of Present Illness: HPI Narrative: 42-year-old male presents to the emergency room complaining of shortness of breath. Patient has a history of end-stage renal disease he also has ascites and congestive heart failure he was brought to the emergency room from outpatient as he was being prepped for paracentesis began having tachypnea. It was felt he could not go forward with the paracentesis. He was brought to the emergency room for evaluation. He has had these episodes multiple times in the past as well. When arriving here he is awake and alert he denies chest pain or palpitations. He did recently switch his dialysis to Thursday and Saturdays. In the day he was seen was Thursday he did receive his dialysis yesterday routinely. He does have some moderate distention of his abdomen he denies any fever sweats or chills. He is tachypneic but on his usual oxygen support he remains of normal oxygen saturation. No fever sweats chills no productive cough. MD elicited complaint: shortness of breath and cough Pertinent past history: COPD and congestive heart failure Onset (ago): unknown Exacerbating factors: lying flat, exertion and coughing Relieving factors: nothing Associated symptoms: Deny abdominal pain, chest congestion, chest pain, cough, diaphoresis, dizziness, extremity pain, fever(s), hemoptysis, lightheadedness, myalgias, nausea, orthopnea, palpitations, paresthesias, polydipsia, polyuria, rash, sense of impending doom, syncope or vomiting Treatment prior to arrival: none Review of Systems Const: Reports: fatigue and malaise; Denies: fever(s), chills or diaphoresis Card: Denies: chest pain, palpitations, lightheadedness, syncope or orthopnea Resp: Reports: dyspnea; Denies: productive cough, non-productive cough, wheezing, hemoptysis or chest congestion GI: Denies: abdominal pain, nausea or vomiting : Denies: flank pain, dysuria, urinary frequency or urinary urgency Musc: Reports: back pain; Denies: extremity pain Skin/Breast: Denies: rash or pruritus Neuro: Denies: dizziness Endo: Denies: polyuria or polydipsia PFSH ED PFSH: Medical History Abdominal ascites history of intermittent paracentesis, transudative fluid; prior work up has included negative biopsy, ceruloplasmin level normal, low iron, high ferritin, normal TIBC, negative HIV, hepatitis panel negative, JESÚS/SCL 70/double-stranded DNA antibodies negative, Alpha-fetoprotein level unremarkable, nonalcoholic by history, has hepatomegaly and splenomegaly Anemia chronic kidney disease Anxiety Arteriovenous fistula for hemodialysis in place, secondary Atherosclerosis of coronary artery Stent and balloon angioplasty to proximal 1 OM branch Chronic abdominal pain Chronic respiratory failure on home oxygen and bipap Congestive heart failure preserved ejection fraction COPD (chronic obstructive pulmonary disease) COVID 05/25 Degenerative disc disease, lumbar Depression Epididymitis 06/2022 ESRD on dialysis Generalized anxiety disorder with panic attacks History of cardiovascular stress test 07/2022 at [facility] perfusion imaging probably normal, no reversible defects, small fixed defect in apical anterior wall, EF 54%, nonischemic response to stress by EKG criteria History of coronary angiogram 11/2021 - patent stent History of home oxygen therapy Hypertension uncontrolled Hypertensive emergency recurrent episodes Hypertensive urgency Inguinal hernia Low back pain Nicotine dependence, cigarettes, with other nicotine-induced disorders Patient under care of multiple providers Pulmonary embolism 09/21 CTA inconclusive for very tiny peripheral LEFT lower lobe pulmonary artery sub segmental emboli versus poor opacification. Pulmonary hypertension Umbilical hernia Urethral stricture Uses bilevel positive airway pressure (BPAP) ventilation at home Surgical History H/O hand surgery Amputation right 2&3 fingers 2017 History of adenoidectomy Stented coronary artery Family History Other Hypertension Social History Smoking and tobacco status: current every day smoker cigarettes Packs smoked per day: 1.5 Years cigarettes smoked: 21 [ Other cigarette details: started age 20, currently 0.5ppd ] Alcohol intake: never Substance/Drug Use: never Number of children: 3 Current occupational status: disabled Do you think of yourself as: Straight/Heterosexual Physical Exam Const: GENERAL APPEARANCE: cooperative ORIENTATION/CONSCIOUSNESS: Yes awake, Yes oriented to person, Yes oriented to place and Yes oriented to time HENMT: COMMON NORMALS: normocephalic, atraumatic and hearing grossly normal bilaterally HEAD & SCALP: normocephalic and atraumatic Resp: COMMON NORMALS: normal respiratory effort, No retractions, No use of accessory muscles and clear to auscultation bilaterally AUSCULTATION: clear to auscultation bilaterally Cardio: COMMON NORMALS: regular rate, regular rhythm and No murmurs present (Cardio) RATE: regular rate RHYTHM: regular rhythm GI: COMMON NORMALS: Soft to palpation and No hepatosplenomegaly present AUSCULTATION: Yes normoactive bowel sounds PALPATION: Yes Soft to palpation, No Tenderness to palpation present (GI), No Guarding due to palpation present (GI) and Yes No hepatosplenomegaly present Extremity: COMMON NORMALS: normal to inspection, capillary refill normal, no clubbing, cyanosis or edema, no calf tenderness and no pedal edema Neuro: SENSORIUM/ORIENTATION: Yes oriented to person, Yes oriented to place and Yes oriented to time Skin: COMMON NORMALS: no rashes or lesions noted GENERAL SKIN EXAM: no rashes or lesions noted Course Vital Signs: Vital signs: Vital Signs Temperature 98.4 F 01/09/23 10:37 Pulse Rate 98 01/09/23 10:37 Respiratory Rate 22 H 01/09/23 10:37 Blood Pressure 174/109 01/09/23 11:02 Pulse Oximetry 95 01/09/23 10:37 Oxygen Delivery Me thod Nasal Cannula 01/09/23 10:37 Oxygen Flow Rate 4 01/09/23 10:37 MDM - SOB/Dyspnea Medical Decision Making Patient quite anxious on arrival is also complaining of back pain which is chronic. Remainder of his exam is relatively unremarkable. He does not even have any significant wheezing at this time very minor crackles at the bases. He was given Ativan and morphine significantly improved his condition he states he is feeling better. We will discharge him home he has regular dialysis tomorrow. He does have some vascular congestion and significant cardiomegaly on his chest x-ray however he is about at his baseline and does not appear decompensated. Patient vies to return if is worsening problems. Medical Records I reviewed the patient's medical records. Lab Data I reviewed the patient's lab results. 01/09/23 11:10 01/09/23 11:10 Labs/Radiology: Laboratory Results WBC 7.05 10^3/uL (3.29-11.43) 01/09/23 11:10 RBC 3.49 10^6/uL (3.85-5.65) L 01/09/23 11:10 Hgb 9.90 g/dL (11.27-16.99) L 01/09/23 11:10 Hct 30.2 % (37-53) L 01/09/23 11:10 MCV 86.5 fl (82-101) 01/09/23 11:10 MCH 28.4 pg (27-33) 01/09/23 11:10 MCHC 32.8 g/dL (30-55) 01/09/23 11:10 RDW 18.5 % (12.1-15.1) H 01/09/23 11:10 Plt Count 195 10^3/cmm (157-399) 01/09/23 11:10 MPV 9.3 fL (7.4-10.4) 01/09/23 11:10 Neut % (Auto) 78.6 % 01/09/23 11:10 Lymph % (Auto) 6.2 % 01/09/23 11:10 [place] % (Auto) 10.5 % 01/09/23 11:10 Eos % (Auto) 3.4 % 01/09/23 11:10 Baso % (Auto) 1.0 % 01/09/23 11:10 Neut # (Auto) 5.54 10^3/uL (1.8-7.7) 01/09/23 11:10 Lymph # (Auto) 0.4 10^3/uL (0.8-4.8) L 01/09/23 11:10 [place] # (Auto) 0.7 10^3/uL (0.2-0.9) 01/09/23 11:10 Eos # (Auto) 0.2 10^3/uL (0.0-0.8) 01/09/23 11:10 Baso # (Auto) 0.1 10^3/uL (0.0-0.1) 01/09/23 11:10 Nucleated RBC % (auto) 0 % 01/09/23 11:10 Nucleated RBCs # 0.0 /100WBC 01/09/23 11:10 Sodium 132 mmol/L (136-145) L 01/09/23 11:10 Potassium 4.4 mmol/L (3.5-5.1) 01/09/23 11:10 Chloride 89 mmol/L (98-107) L 01/09/23 11:10 Carbon Dioxide 29 mmol/L (22-29) 01/09/23 11:10 Anion Gap 18.4 (5-19) 01/09/23 11:10 BUN 39 mg/dL (6-20) H 01/09/23 11:10 Creatinine 6.5 mg/dL (0.7-1.2) H* 01/09/23 11:10 GFR Calculation 9.5 mL/min (90-130) L 01/09/23 11:10 Glucose 86 mg/dL (65-115) 01/09/23 11:10 Calculated Osmolality 283 mOsm/kg (285-295) L 01/09/23 11:10 Calcium 10.6 mg/dL (8.5-10.5) H 01/09/23 11:10 Total Bilirubin 1.1 mg/dL (0.15-1.2) 01/09/23 11:10 AST 11 U/L (0-40) 01/09/23 11:10 ALT 6 U/L (0-41) 01/09/23 11:10 Alkaline Phosphatase 116 U/L (40-130) 01/09/23 11:10 Total Protein 7.6 g/dL (6.6-8.7) 01/09/23 11:10 Albumin 4.2 g/dL (3.5-5.2) 01/09/23 11:10 Globulin 3.4 g/dL (1.3-4.6) 01/09/23 11:10 Discharge Plan Discharge Patient Disposition: Home Clinical Impression: Low back pain, End-stage renal disease on hemodialysis, Abdominal ascites, Generalized anxiety disorder with panic attacks Condition: Stable Prescriptions: No Action (DME) DME - BIPAP See Rx Instructions .Route .MEDSUPPLY Qty: 1 0RF Rx Instructions: Inspiratory Pressure: 16mmHg Expiratory Pressure: 8 mmHg Will need oxygen bled in to the machine to maintain sats >/= 90%. (DME) DME - Oxygen See Rx Instructions .Route .MEDSUPPLY Qty: 1 0RF Rx Instructions: Supplemental Oxygen bled into BIPAP at 2-3L to maintain oxygen sats at >/= 90%. Auryxia 210 mg iron Tablet See Rx Instructions .ROUTE .COMPLEX Rx Instructions: 420 mg (2 tabs) orally three times a day and 210mg (1 tab) with snacks aspirin 81 mg tablet,delayed release (DR/EC) 81 mg PO DAILY pantoprazole 40 mg tablet,delayed release (DR/EC) 40 mg PO DAILY isosorbide mononitrate 120 mg tablet extended release 24 hr 240 mg PO DAILY oxycodone 5 mg tablet 5 mg PO Q6H MDD 4 tabs PRN (Reason: Pain) RenaPlex-D 800 mcg-12.5 mg -2,000 unit tablet 1 tab PO DAILY losartan 50 mg tablet 100 mg PO DAILY Qty: 60 0RF minoxidil 2.5 mg Tablet 5 mg PO BID Qty: 60 0RF lorazepam 1 mg tablet 1 mg PO DAILY PRN (Reason: Anxiety) Qty: 0.1 0RF carvedilol 25 mg tablet 37.5 mg PO Q12H clonidine 0.2 mg/24 hr patch weekly 0.2 mg topical Q7D atorvastatin 40 mg tablet 40 mg PO BEDTIME hydromorphone 2 mg tablet 2 mg PO Q8H MDD 3 tabs PRN (Reason: Pain) amlodipine 10 mg tablet 10 mg PO DAILY hydralazine 100 mg tablet 100 mg PO Q8H prasugrel 10 mg tablet 10 mg PO DAILY cyanocobalamin (vitamin B-12) 1,000 mcg capsule 1,000 mcg PO DAILY Qty: 30 0RF naloxone 4 mg/actuation spray,non-aerosol See Rx Instructions .ROUTE .COMPLEX Rx Instructions: ADMINISTER 1 SPRAY ( 4 MG ) IN ONE NOSTRIL ( ALTERNATE NOSTRIL WITH EACH DOSE ) EVERY 5 MINUTES NEEDED FOR OPIOID OVERDOSE SYMPTOMS Discharge Orders: Discharge ED (Routine); Ordered 01/09/23 Ordered By: Pato Rivera Referrals: Mal Peres DO [Primary Care Provider] - Discharge Diet: Usual diet Discharge Activity: Resume usual activity Patient Instructions: Opioid Safety, Pain Management Coding Level of Care Code ED Stationary Steam Engineer for Cristi Diane
[2023-01-09 11:20] LABS: Basophils # 0.1 10^3/uL (0.0-0.1); Eosinophils # 0.2 10^3/uL (0.0-0.8); Eosinophils % 3.4 %; Hematocrit 30.2 % (37-53); Lymphocytes # 0.4 10^3/uL (0.8-4.8); Lymphocytes % 6.2 %; Mean Corpuscular HGB Conc 32.8 g/dL (30-55); Mean Corpuscular Hemoglobin 28.4 pg (27-33); Mean Corpuscular Volume 86.5 fl (82-101); Mean Platelet Volume 9.3 fL (7.4-10.4); Monocytes # 0.7 10^3/uL (0.2-0.9); Monocytes % 10.5 %; Neutrophils # 5.54 10^3/uL (1.8-7.7); Neutrophils % 78.6 %; Nucleated Red Blood Cells % 0 %; Platelet Count 195 10^3/cmm (157-399); Red Blood Count 3.49 10^6/uL (3.85-5.65); Red Cell Distribution Width 18.5 % (12.1-15.1); White Blood Count 7.05 10^3/uL (3.29-11.43)
[2023-01-09 11:34] LABS: Alanine Aminotransferase 6 U/L (0-41); Albumin Level 4.2 g/dL (3.5-5.2); Alkaline Phosphatase 116 U/L (40-130); Anion Gap 18.4 (5-19); Aspartate Amino Transferase 11 U/L (0-40); Blood Urea Nitrogen 39 mg/dL (6-20); Calcium 10.6 mg/dL (8.5-10.5); Carbon Dioxide 29 mmol/L (22-29); Chloride 89 mmol/L (98-107); Globulin 3.4 g/dL (1.3-4.6); Glomerular Filtration Rate 9.5 mL/min (90-130); Glucose 86 mg/dL (65-115); Osmolality Calculated 283 mOsm/kg (285-295); Potassium 4.4 mmol/L (3.5-5.1); Sodium 132 mmol/L (136-145); Total Bilirubin 1.1 mg/dL (0.15-1.2); Total Protein 7.6 g/dL (6.6-8.7)
[2023-01-09] MEDS: LORazepam 2 mg/mL INJ 1 mL IVP (11:37)
[2023-01-09] MEDS: morphine 4 mg/mL SDV 1 mL 2 MG IVP (11:37)
== END 2023-01-09 14:49 | disposition home or self-care (01) ==
PROVIDERS: Emergency Provider Family Medicine; PCP Family Medicine
DX: F41.1 Generalized anxiety disorder (principal); F41.0 Panic disorder [episodic paroxysmal anxiety]; R18.8 Other ascites; M54.50 Low back pain, unspecified; I13.2 Hypertensive heart and chronic kidney disease with heart failure and with stage 5 chronic kidney disease, or end stage renal disease; N18.6 End stage renal disease; I50.9 Heart failure, unspecified; Z99.2 Dependence on renal dialysis; J44.9 Chronic obstructive pulmonary disease, unspecified; Z99.81 Dependence on supplemental oxygen; F17.210 Nicotine dependence, cigarettes, uncomplicated; Z79.82 Long term (current) use of aspirin
CPT/HCPCS: 36415; 71045; 80053; 85025; 93005; 96374; 96375; 99285; J2060; J2270

== ENCOUNTER 2023-01-12 05:08 | Inpatient (IN) | payer MEDICARE, MEDICAID, SELFPAY ==
[2023-01-12] VITALS (156 sets, daily range): BP systolic 97–203; BP diastolic 49–121; PULSE 0–108; RESP 10–29; TEMP 36.4–37.1; O2SAT 86–100; BMI 22.4
--- NOTE | 2023-01-12 05:17 | XRR_ITS ---
PROCEDURE INFORMATION: Exam: XR Chest Exam date and time: 01/12/2023 5:26 AM Age: 42 years old Clinical indication: Shortness of breath; Prior surgery; Surgery date: 6+ months; Surgery type: Coronary stents; Patient HX: SOB with hypoxia. History of copd. TECHNIQUE: Imaging protocol: Radiologic exam of the chest. Views: 1 view. COMPARISON: CR XR chest 1V portable [id number] 01/09/2023 10:58 AM FINDINGS: Lungs: There is significantly increased right lung infiltrate. Pleural spaces: Unremarkable. No pleural effusion. No pneumothorax. Heart/Mediastinum: The heart size is not well assessed. Bones/joints: There is an old right rib fracture again noted. XR/XR chest 1V portable [id number] IMPRESSION: Significantly increased right lung infiltrate.
--- NOTE | 2023-01-12 05:17 | ECG_ITS ---
[facility] Test Date: 2023-01-12 Pat Name: Mal Gibbs Department: Room: Gender: Male Tube Turner: : 1980 Requested By: Jose Negrete Order Number: [id number] Mohini MD: Bharathi Markham M.D. Measurements Intervals [place] Rate: 76 P: 54 OR: 197 QRS: 34 QRSD: 118 T: 94 QT: 432 QTc: 487 Interpretive Statements SINUS RHYTHM POSSIBLE LEFT ATRIAL ENLARGEMENT [-0.1mV P-WAVE IN V1/V2] MODERATE INTRAVENTRICULAR CONDUCTION DELAY [110+ ms QRS DURATION] NONSPECIFIC ST & T-WAVE ABNORMALITY PROLONGED QT INTERVAL Compared to ECG 01/09/2023 11:00:16 Intraventricular conduction delay now present T-wave abnormality now present Prolonged QT interval now present Left ventricular hypertrophy no longer present ST (T wave) deviation no longer present Electronically Signed On 01-12-2023 16:03:05 CDT by Bharathi Markham M.D. [id number]
[2023-01-12] MEDS: labetalol 5 mg/mL SDV 20mL 20 MG IVP (05:25)
[2023-01-12 05:26] LABS: Basophils # 0.1 10^3/uL (0.0-0.1); Basophils % 0.9 %; Eosinophils # 0.3 10^3/uL (0.0-0.8); Eosinophils % 4.4 %; Hematocrit 30.6 % (37-53); Lymphocytes # 0.7 10^3/uL (0.8-4.8); Lymphocytes % 10.1 %; Mean Corpuscular Hemoglobin 27.5 pg (27-33); Mean Corpuscular Volume 85.7 fl (82-101); Mean Platelet Volume 9.1 fL (7.4-10.4); Monocytes # 0.7 10^3/uL (0.2-0.9); Monocytes % 10.7 %; Neutrophils # 4.88 10^3/uL (1.8-7.7); Neutrophils % 73.3 %; Nucleated Red Blood Cells % 0.3 %; Platelet Count 209 10^3/cmm (157-399); Red Blood Count 3.57 10^6/uL (3.85-5.65); Red Cell Distribution Width 18.7 % (12.1-15.1); White Blood Count 6.65 10^3/uL (3.29-11.43)
[2023-01-12] MEDS: nitroglycerin 1 gm/inch oint Pkt 2 INCH TOPICAL (05:27)
--- NOTE | 2023-01-12 05:34 | W.ED.SOB ---
HPI - SOB/Dyspnea General: Chief Complaint: Shortness of Breath/Dyspnea Stated Complaint: Anxiety Time Seen by Provider: 01/12/23 05:12 Source: patient History of Present Illness: HPI Narrative: 42-year-old male well-known to the emergency department service. He presents with sudden onset shortness of breath. He was seen a couple of days ago with similar symptoms. He had dialysis on Thursday. He has not had his abdomen drained recently. He notes increased fluid in his belly, and severe shortness of breath this morning. He received Solu-Medrol, DuoNeb treatments in the ambulance on the way here with minimal improvement. He is usually on 4 L, now on 6, with saturations in the mid 80s. MD elicited complaint: shortness of breath and cough Pertinent past history: other Onset (ago): hour(s) Timing: constant and progressively worsening Associated symptoms: Reports abdominal pain, chest pain and nausea; Deny fever(s), palpitations or vomiting Related Data: Home oxygen amount: 4 liters Review of Systems Const: Denies: fever(s) ENMT: Denies: throat pain Card: Reports: chest pain; Denies: palpitations Resp: Reports: dyspnea and non-productive cough GI: Reports: abdominal pain and nausea; Denies: vomiting Psych: Reports: anxiety PFSH ED PFSH: Medical History Abdominal ascites history of intermittent paracentesis, transudative fluid; prior work up has included negative biopsy, ceruloplasmin level normal, low iron, high ferritin, normal TIBC, negative HIV, hepatitis panel negative, JESÚS/SCL 70/double-stranded DNA antibodies negative, Alpha-fetoprotein level unremarkable, nonalcoholic by history, has hepatomegaly and splenomegaly Anemia chronic kidney disease Anxiety Arteriovenous fistula for hemodialysis in place, secondary Atherosclerosis of coronary artery Stent and balloon angioplasty to proximal 1 OM branch Chronic abdominal pain Chronic respiratory failure on home oxygen and bipap Congestive heart failure preserved ejection fraction COPD (chronic obstructive pulmonary disease) COVID 05/25 Degenerative disc disease, lumbar Depression Epididymitis 06/2022 ESRD on dialysis Generalized anxiety disorder with panic attacks History of cardiovascular stress test 07/2022 at [facility] perfusion imaging probably normal, no reversible defects, small fixed defect in apical anterior wall, EF 54%, nonischemic response to stress by EKG criteria History of coronary angiogram 11/2021 - patent stent History of home oxygen therapy Hypertension uncontrolled Hypertensive emergency recurrent episodes Hypertensive urgency Inguinal hernia Low back pain Nicotine dependence, cigarettes, with other nicotine-induced disorders Patient under care of multiple providers Pulmonary embolism 09/21 CTA inconclusive for very tiny peripheral LEFT lower lobe pulmonary artery sub segmental emboli versus poor opacification. Pulmonary hypertension Umbilical hernia Urethral stricture Uses bilevel positive airway pressure (BPAP) ventilation at home Surgical History H/O hand surgery Amputation right 2&3 fingers 2017 History of adenoidectomy Stented coronary artery Family History Other Hypertension Social History Smoking and tobacco status: current every day smoker cigarettes Packs smoked per day: 1.5 Years cigarettes smoked: 21 [ Other cigarette details: started age 20, currently 0.5ppd ] Alcohol intake: never Substance/Drug Use: never Number of children: 3 Current occupational status: disabled Do you think of yourself as: Straight/Heterosexual Physical Exam Const: GENERAL APPEARANCE: cooperative, lethargic, ill appearing and frail appearing ORIENTATION/CONSCIOUSNESS: Yes lethargic HENMT: COMMON NORMALS: normocephalic and atraumatic HEAD & SCALP: normocephalic and atraumatic Eye: COMMON NORMALS: Equal, round and reactive pupils present and EOMs intact bilaterally PUPIL: Yes Equal, round and reactive pupils present Chest: CHEST: Yes Symmetrical chest wall rise Resp: EFFORT & INSPECTION: Yes tachypneic and Yes labored AUSCULTATION: rales Cardio: COMMON NORMALS: regular rate and regular rhythm RATE: regular rate RHYTHM: regular rhythm GI: INSPECTION: Yes abdominal distension PALPATION: Yes Firmness to palpation present (GI) PERCUSSION: dullness to percussion Extremity: GENERAL: Yes cyanosis and Yes edema Neuro: BUCK COMA SCALE: document GCS findings Buck coma scale eye opening: Spontaneous Calvin coma scale verbal response: Orientated Calvin coma scale motor response: Obey commands Calvin coma scale total score: 15 SENSORIUM/ORIENTATION: Yes lethargic Course Vital Signs: Vital signs: Vital Signs Temperature 98.0 F 01/12/23 05:08 Pulse Rate 76 01/12/23 05:49 Respiratory Rate 20 H 01/12/23 05:49 Blood Pressure 203/103 01/12/23 05:26 Pulse Oximetry 91 01/12/23 06:00 Oxygen Delivery Me thod Oxymask 01/12/23 06:00 Oxygen Flow Rate 10 01/12/23 06:00 Fraction of Inspir ed Oxygen 80 01/12/23 05:44 MDM - SOB/Dyspnea Medical Decision Making BiPAP will be placed on the patient. Blood gases pending. Chest x-ray shows maida pulmonary edema. Sodium 133. Potassium 4.3. Magnesium is normal. Hemoglobin is 10. Patient took his on BiPAP off. He is now on oxime mask at 6 L satting 93%. Respirations are down to 18. After Nitropaste, blood pressure is 165 systolic. Spoke with the hospitalist about admission for hypoxic respiratory failure and pulmonary edema. She has seen the patient in the ER. Nephrology has been consulted. He will go to the ICU. Lab Data 01/12/23 05:00 01/12/23 05:00 Labs/Radiology: Radiology Impressions Chest X-Ray 01/12/23 05:17 IMPRESSION: Significantly increased right lung infiltrate. Laboratory Results WBC 6.65 10^3/uL (3.29-11.43) 01/12/23 05:00 RBC 3.57 10^6/uL (3.85-5.65) L 01/12/23 05:00 Hgb 9.80 g/dL (11.27-16.99) L 01/12/23 05:00 Hct 30.6 % (37-53) L 01/12/23 05:00 MCV 85.7 fl (82-101) 01/12/23 05:00 MCH 27.5 pg (27-33) 01/12/23 05:00 MCHC 32.0 g/dL (30-55) 01/12/23 05:00 RDW 18.7 % (12.1-15.1) H 01/12/23 05:00 Plt Count 209 10^3/cmm (157-399) 01/12/23 05:00 MPV 9.1 fL (7.4-10.4) 01/12/23 05:00 Neut % (Auto) 73.3 % 01/12/23 05:00 Lymph % (Auto) 10.1 % 01/12/23 05:00 Edgar % (Auto) 10.7 % 01/12/23 05:00 Eos % (Auto) 4.4 % 01/12/23 05:00 Baso % (Auto) 0.9 % 01/12/23 05:00 Neut # (Auto) 4.88 10^3/uL (1.8-7.7) 01/12/23 05:00 Lymph # (Auto) 0.7 10^3/uL (0.8-4.8) L 01/12/23 05:00 Edgar # (Auto) 0.7 10^3/uL (0.2-0.9) 01/12/23 05:00 Eos # (Auto) 0.3 10^3/uL (0.0-0.8) 01/12/23 05:00 Baso # (Auto) 0.1 10^3/uL (0.0-0.1) 01/12/23 05:00 Nucleated RBC % (auto) 0.3 % 01/12/23 05:00 Nucleated RBCs # 0.0 /100WBC 01/12/23 05:00 Specimen Type Arterial 01/12/23 05:35 Sample Site Brachial, right 01/12/23 05:35 ABG pH 7.42 (7.35-7.45) 01/12/23 05:35 ABG pCO2 47.8 mmHg (35-45) H 01/12/23 05:35 ABG pO2 52.4 mmHg (80.0-100.0) L 01/12/23 05:35 ABG HCO3 30.9 mmol/L (22-26) H 01/12/23 05:35 ABG Base Excess 5.6 mmol/L (-2.0-2.0) H 01/12/23 05:35 Alexei Test N/a 01/12/23 05:35 Hematocrit 31.4 % (42-52) L 01/12/23 05:35 O2 Delivery Device Nc 01/12/23 05:35 O2 Liters/Min 6.0 % 01/12/23 05:35 FiO2 60.0 % 01/12/23 05:35 Milk Receiver Tank Truck ID [id number] 01/12/23 05:35 Sodium 133 mmol/L (136-145) L 01/12/23 05:00 Potassium 4.3 mmol/L (3.5-5.1) 01/12/23 05:00 Chloride 87 mmol/L (98-107) L 01/12/23 05:00 Carbon Dioxide 29 mmol/L (22-29) 01/12/23 05:00 Anion Gap 21.3 (5-19) H 01/12/23 05:00 BUN 58 mg/dL (6-20) H 01/12/23 05:00 Creatinine 7.9 mg/dL (0.7-1.2) H* 01/12/23 05:00 GFR Calculation 7.6 mL/min (90-130) L 01/12/23 05:00 Glucose 104 mg/dL (65-115) 01/12/23 05:00 Calculated Osmolality 292 mOsm/kg (285-295) 01/12/23 05:00 Lactic Acid 0.4 mmol/L (0.5-2.2) L 01/12/23 05:17 Calcium 11.1 mg/dL (8.5-10.5) H 01/12/23 05:00 Phosphorus 6.4 mg/dL (2.5-4.5) H 01/12/23 05:00 Magnesium 2.1 mg/dL (1.7-2.3) 01/12/23 05:00 Total Bilirubin 1.3 mg/dL (0.15-1.2) H 01/12/23 05:00 AST 15 U/L (0-40) 01/12/23 05:00 ALT 7 U/L (0-41) 01/12/23 05:00 Alkaline Phosphatase 125 U/L (40-130) 01/12/23 05:00 Total Protein 8.2 g/dL (6.6-8.7) 01/12/23 05:00 Albumin 4.5 g/dL (3.5-5.2) 01/12/23 05:00 Globulin 3.7 g/dL (1.3-4.6) 01/12/23 05:00 Discharge Plan Discharge Patient Disposition: Admitted As Inpatient Admit Provider: Lana Sawant Clinical Impression: ESRD on dialysis, Hypertensive emergency, Acute and chronic respiratory failure with hypoxia Condition: Serious Prescriptions: No Action (DME) DME - BIPAP See Rx Instructions .Route .MEDSUPPLY Qty: 1 0RF Rx Instructions: Inspiratory Pressure: 16mmHg Expiratory Pressure: 8 mmHg Will need oxygen bled in to the machine to maintain sats >/= 90%. (DME) DME - Oxygen See Rx Instructions .Route .MEDSUPPLY Qty: 1 0RF Rx Instructions: Supplemental Oxygen bled into BIPAP at 2-3L to maintain oxygen sats at >/= 90%. Auryxia 210 mg iron Tablet 420 mg PO TID Rx Instructions: administer with a meal aspirin 81 mg tablet,delayed release (DR/EC) 81 mg PO DAILY pantoprazole 40 mg tablet,delayed release (DR/EC) 40 mg PO DAILY isosorbide mononitrate 120 mg tablet extended release 24 hr 240 mg PO DAILY oxycodone 5 mg tablet 5 mg PO Q8H PRN (Reason: Pain) RenaPlex-D 800 mcg-12.5 mg -2,000 unit tablet 1 tab PO DAILY losartan 50 mg tablet 100 mg PO DAILY Qty: 60 0RF minoxidil 2.5 mg Tablet 5 mg PO BID Qty: 60 0RF lorazepam 1 mg tablet 1 mg PO DAILY PRN (Reason: Anxiety) Qty: 0.1 0RF carvedilol 25 mg tablet See Rx Instructions .ROUTE .COMPLEX Rx Instructions: TAKE 1 AND 1/2 TABLETS BY MOUTH EVERY 12 HOURS clonidine 0.2 mg/24 hr patch weekly 0.2 mg topical Q7D atorvastatin 40 mg tablet 40 mg PO BEDTIME hydromorphone 2 mg tablet 2 mg PO Q6H PRN (Reason: Pain) amlodipine 10 mg tablet 10 mg PO DAILY hydralazine 100 mg tablet 100 mg PO Q8H prasugrel 10 mg tablet 10 mg PO DAILY cyanocobalamin (vitamin B-12) 1,000 mcg capsule 1,000 mcg PO DAILY Qty: 30 0RF Referrals: Mal Peres DO [Primary Care Provider] - Coding Level of Care Code ED Authorization Specialist for Cristi Diane
[2023-01-12 05:44] LABS: ABG PCO2 47.8 mmHg (35-45); ABG PH Result 7.42 (7.35-7.45); Arterial Blood Gas Hematocrit 31.4 % (42-52); Base Excess ABG 5.6 mmol/L (-2.0-2.0); Blood Gas Sample Type Arterial; HCO3 ABG 30.9 mmol/L (22-26); PO2 ABG 52.4 mmHg (80.0-100.0)
[2023-01-12 05:46] LABS: Blood Gas Sample Site Brachial, right; Oxygen Device NC
[2023-01-12 05:47] LABS: Alanine Aminotransferase 7 U/L (0-41); Albumin Level 4.5 g/dL (3.5-5.2); Alkaline Phosphatase 125 U/L (40-130); Anion Gap 21.3 (5-19); Aspartate Amino Transferase 15 U/L (0-40); Blood Urea Nitrogen 58 mg/dL (6-20); Calcium 11.1 mg/dL (8.5-10.5); Carbon Dioxide 29 mmol/L (22-29); Chloride 87 mmol/L (98-107); Globulin 3.7 g/dL (1.3-4.6); Glomerular Filtration Rate 7.6 mL/min (90-130); Glucose 104 mg/dL (65-115); Magnesium 2.1 mg/dL (1.7-2.3); Osmolality Calculated 292 mOsm/kg (285-295); Phosphorus 6.4 mg/dL (2.5-4.5); Potassium 4.3 mmol/L (3.5-5.1); Sodium 133 mmol/L (136-145); Total Bilirubin 1.3 mg/dL (0.15-1.2); Total Protein 8.2 g/dL (6.6-8.7)
--- NOTE | 2023-01-12 05:48 | PC.NURSE ---
pt had dialysis on Thursday01/10/2023 and is supposed to have it on Thursday01/13/2023
--- NOTE | 2023-01-12 05:59 | PC.NURSE ---
pt refusing to use biPAP machine, respiratory and Dr. Ward notified. pt currently on OXYmask @10L
[2023-01-12 06:02] LABS: Lactic Sepsis W/Reflex 0.4 mmol/L (0.5-2.2)
--- NOTE | 2023-01-12 06:35 | P.HP_ITS ---
Providers/Chief Complaint Admitting Physician: Lana Sawant MD Primary Care Provider: Mal Peres DO Chief Complaint: Anxiety History of Present Illness Mal Gibbs is a 42 year old male with history of ESRD on hemodialysis Thursday and Thursday last dialysis was done on Thursday, was brought in by EMS for complaint of shortness of breath and abdominal distention. As per the ER he was recently here on Thursday with similar complaints. He is usually on 4 L nasal cannula at home but now he is on 6 L with saturation 90 to 92%. He was also found to be hypertensive with systolic blood pressure of 180s. Unable to obtain history due to altered mental status. Review of Systems Narrative: Unable to obtain Medications/Allergies Home Medications Medication Instructions Recorded Confirmed Last Taken Type ferric citrate 210 mg iron tablet 420 mg PO TID 11/03/21 01/09/23 01/07/23 History (Auryxia) aspirin 81 mg tablet,delayed 81 mg PO DAILY 02/21/22 01/09/23 01/07/23 History release pantoprazole 40 mg tablet,delayed 40 mg PO DAILY 02/21/22 01/09/23 01/07/23 His tory release DME - BIPAP #1 ea 02/25/22 01/09/23 01/07/23 Rx DME - Oxygen #1 ea 02/25/22 01/09/23 01/07/23 Rx cyanocobalamin (vitamin B-12) 1,000 mcg PO DAILY #30 caps 08/07/22 01/09/23 0 01/07/23 Rx 1,000 mcg capsule isosorbide mononitrate 120 mg 240 mg PO DAILY 10/01/22 01/09/23 01/07/23 History tablet,extended release 24 hr oxycodone 5 mg tablet 5 mg PO Q8H PRN Pain 10/01/22 01/09/23 01/07/23 History vit B,C-folic ac 800 mcg-zinc 12.5 1 tab PO DAILY 10/01/22 01/09/23 01/07/23 History mg-selen-D3 2,000 unit-vit E tablet (RenaPlex-D) lorazepam 1 mg tablet 1 mg PO DAILY PRN Anxiety #0.1 tabs 10/04/22 01/09/23 01/07/23 Rx losartan 50 mg tablet 100 mg PO DAILY #60 tabs 10/04/22 01/09/23 01/07/23 Rx minoxidil 2.5 mg tablet 5 mg PO BID #60 tabs 10/04/22 01/09/23 01/07/23 Rx amlodipine 10 mg tablet 10 mg PO DAILY 01/09/23 01/09/23 Unknown History atorvastatin 40 mg tablet 40 mg PO BEDTIME 01/09/23 01/09/23 Unknown History carvedilol 25 mg tablet See Rx Instructions .Route .COMPLEX 01/09/23 01/09/23 Unknown History clonidine 0.2 mg/24 hr weekly 0.2 mg topical Q7D 01/09/23 01/09/23 Unknown History transdermal patch hydralazine 100 mg tablet 100 mg PO Q8H 01/09/23 01/09/23 Unknown History hydromorphone 2 mg tablet 2 mg PO Q6H PRN Pain 01/09/23 01/09/23 Unknown History prasugrel 10 mg tablet 10 mg PO DAILY 01/09/23 01/09/23 Unknown History Allergies Allergy/AdvReac Type Severity Reaction Status Date / Time nifedipine Allergy ALGY-Swell Verified 10/09/22 11:19 Lip/Tongue/Throat PFSH Acute PFSH: Medical History Abdominal ascites history of intermittent paracentesis, transudative fluid; prior work up has included negative biopsy, ceruloplasmin level normal, low iron, high ferritin, normal TIBC, negative HIV, hepatitis panel negative, JESÚS/SCL 70/double-stranded DNA antibodies negative, Alpha-fetoprotein level un remarkable, nonalcoholic by history, has hepatomegaly and splenomegaly Anemia chronic kidney disease Anxiety Arteriovenous fistula for hemodialysis in place, secondary Atherosclerosis of coronary artery Stent and balloon angioplasty to proximal 1 OM branch Chronic abdominal pain Chronic respiratory failure on home oxygen and bipap Congestive heart failure preserved ejection fraction COPD (chronic obstructive pulmonary disease) COVID 05/25 Degenerative disc disease, lumbar Depression Epididymitis 06/2022 ESRD on dialysis Generalized anxiety disorder with panic attacks History of cardiovascular stress test 07/2022 at [facility] perfusion imaging probably normal, no reversible defects, small fixed defect in apical anterior wall, EF 54%, nonischemic response to stress by EKG criteria History of coronary angiogram 11/2021 - patent stent History of home oxygen therapy Hypertension uncontrolled Hypertensive emergency recurrent episodes Hypertensive urgency Inguinal hernia Low back pain Nicotine dependence, cigarettes, with other nicotine-induced disorders Patient under care of multiple providers Pulmonary embolism 09/21 CTA inconclusive for very tiny peripheral LEFT lower lobe pulmonary artery sub segmental emboli versus poor opacification. Pulmonary hypertension Umbilical hernia Urethral stricture Uses bilevel positive airway pressure (BPAP) ventilation at home Surgical History H/O hand surgery Amputation right 2&3 fingers 2017 History of adenoidectomy Stented coronary artery Family History Other Hypertension Social History Smoking and tobacco status: current every day smoker cigarettes Packs smoked per day: 1.5 Years cigarettes smoked: 21 [ Other cigarette details: started age 20, currently 0.5ppd ] Alcohol intake: never Substance/Drug Use: never Number of children: 3 Current occupational status: disabled Do you think of yourself as: Straight/Heterosexual Vitals/I&O/Wt Last Vital Signs Temp 98.0 F 01/12/23 05:08 Pulse 76 01/12/23 05:49 Resp 20 H 01/12/23 05:49 BP 165/93 01/12/23 06:29 Pulse Ox 91 01/12/23 06:00 O2 Del Method Oxymask 01/12/23 06:00 O2 Flow Rate 10 01/12/23 06:00 FiO2 80 01/12/23 05:44 Weight last 48 hrs Weight 77.111 kg Physical Exam Narrative: He is drowsy, responsive to verbal stimuli but not comprehensive Chest bilateral crackles present no wheezing Cardiovascular normal heart sounds regular rhythm Abdomen soft distended nontender normal bowel sounds Extremities 2+ bilateral lower extremity edema present Data 01/12/23 05:00 01/12/23 05:00 CXR: Radiologist's impression: Lungs: There is significantly increased right lung infiltrate. Pleural spaces: Unremarkable. No pleural effusion. No pneumothorax. Heart/Mediastinum:? The heart size is not well assessed. Bones/joints: There is an old right rib fracture again noted. A&P Assessment and plan (1) Acute and chronic respiratory failure with hypoxia: (2) Abdominal ascites: (3) End-stage renal disease on hemodialysis: (4) Uncontrolled hypertension: Plan 42-year-old male with history of ESRD on hemodialysis was brought in by EMS for severe shortness of breath and abdominal pain, found to have acute hypoxic respiratory failure likely secondary to fluid overload and ascites Admit to ICU Nephrology to see him in the morning Needs hemodialysis today and paracentesis as needed Patient was started on BiPAP in the ER. He is noncompliant hence we will continue continue supplemental oxygen for now Confirm home medications in the morning Renal diet Intermittent compression stockings for DVT prophylaxis IV Pepcid 20 mg every 12 for stress ulcer prophylaxis He is full code for now Attestations Medical Necessity Statement*: He might need continued hospitalization for more than 2 midnights for dialysis and further work-up for right lung infiltrate Time Spent in Patient Care: 35 minutes Coding Level of Care Code Critical Care >/= 30 minutes Diagnoses Acute and chronic respiratory failure with hypoxia J96.21 Abdominal ascites R18.8 End-stage renal disease on hemodialysis N18.6; Z99.2 Uncontrolled hypertension I10 Time Spent (min) 30
--- NOTE | 2023-01-12 07:52 | PC.PHAR ---
Addendum entered by Lou Giraldo 01/12/23 13:53: still no answer from pts sister lukas [phone] so medications entered are from what ext history shows and what was on previously entered med list-notes with last fill dates are in pharmacy comments Addendum entered by Lou Giraldo 01/12/23 11:21: called pts sister again still no answer Addendum entered by Lou Giraldo 01/12/23 09:39: called pts sister again still not accepting calls Original Note: pt states his sister lukas takes care of his medications-called lukas [phone] says not accepting phone calls at this time
[2023-01-12 07:58] LABS: Adenovirus Not Detected (NOT DETECT); Chlamydia Pneumoniae Not Detected (NOT DETECT); Coronavirus 229E,HKU1,NL63,OC4 Not Detected (NOT DETECT); Human Metapneumovirus Not Detected (NOT DETECT); Human Rhinovirus/Enterovirus Not Detected (NOT DETECT); Influenza A Not Detected (NOT DETECT); Influenza A H1 Not Detected (NOT DETECT); Influenza A H1-2009 Not Detected (NOT DETECT); Influenza A H3 Not Detected (NOT DETECT); Influenza B Not Detected (NOT DETECT); Mycoplasma Pneumoniae Not Detected (NOT DETECT); Parainfluenza Virus Type 1 Not Detected (NOT DETECT); Parainfluenza Virus Type 2 Not Detected (NOT DETECT); Parainfluenza Virus Type 3 Not Detected (NOT DETECT); Parainfluenza Virus Type 4 Not Detected (NOT DETECT); Respiratory Syncytial Virus A Not Detected (NOT DETECT); Respiratory Syncytial Virus B Not Detected (NOT DETECT); SARS-COV-2 Not Detected (NOT DETECT)
[2023-01-12 07:59] LABS: Hepatitis B Surface AB 71.3 (11.5-1000); Hepatitis B Surface Antigen Non-Reactive (Nonreactive)
[2023-01-12] MEDS: aspirin 81 mg EC Tablet PO (08:02)
[2023-01-12] MEDS: famotidine 20 mg/2 mL INJ IVP ×2 (08:02→20:40)
[2023-01-12] MEDS: amlodipine 10 mg Tablet PO (08:02)
[2023-01-12] MEDS: carvedilol 25 mg Tablet 37.5 MG PO (08:03)
[2023-01-12] MEDS: hyDRALAzine 50 mg Tablet 100 MG PO ×2 (08:03→17:00)
[2023-01-12] MEDS: isosorbide mononitrate ER 60 mg Tablet 240 MG PO (08:03)
[2023-01-12] MEDS: losartan 50 mg Tablet 100 MG PO (08:03)
[2023-01-12] MEDS: cloNIDine 0.2 mg/24 hr Patch 1 PATCH TOPICAL (08:04)
[2023-01-12] MEDS: prasugrel 10 MG Tablet PO (08:04)
[2023-01-12] MEDS: cyanocobalamin 1,000 mcg Tablet 1000 MCG PO (08:06)
[2023-01-12] MEDS: oxyCODONE 5 mg IR Tab/Cap PO (09:29)
--- NOTE | 2023-01-12 11:26 | P.CONIM_ITS ---
Providers/Reason For Consult Consulting Physician/Specialty*: [facility]/Nephrology Reason for Consult*: ESRD Attending Physician: Bob Gonzalez Primary Care Provider: Mal Peres DO History of Present Illness History of Present Illness Mal Gibbs is a 42 year old male Patient is a 42-year-old male with past medical history of congestive cardiac failure, hypertension, end-stage renal disease on dialysis per TTS schedule as outpatient, chronic respiratory failure recurrent prior admissions to the hospital for volume overload and CHF was brought to the emergency department due to shortness of breath. Patient was also noted to have altered mental status in the ER. Blood chills blood pressures were elevated with the systolics above 180s. Patient is currently transferred to ICU. Patient also has a history of COPD and cirrhosis and ascites. Review of Systems Narrative: UNABLE TO OBTAIN FROM PT Medications/Allergies Home Medications Medication Instructions Recorded Confirmed Last Taken Type ferric citrate 210 mg iron tablet 420 mg PO TID 11/03/21 01/09/23 01/07/23 Hist ory (Auryxia) aspirin 81 mg tablet,delayed 81 mg PO DAILY 02/21/22 01/09/23 01/07/23 History release pantoprazole 40 mg tablet,delayed 40 mg PO DAILY 02/21/22 01/09/23 01/07/23 History release DME - BIPAP #1 ea 02/25/22 01/09/23 01/07/23 Rx DME - Oxygen #1 ea 02/25/22 01/09/23 01/07/23 Rx cyanocobalamin (vitamin B-12) 1,000 mcg PO DAILY #30 caps 08/07/22 01/09/23 01/07/23 Rx 1,000 mcg capsule isosorbide mononitrate 120 mg 240 mg PO DAILY 10/01/22 01/09/23 01/07/23 History tablet,extended release 24 hr oxycodone 5 mg tablet 5 mg PO Q8H PRN Pain 10/01/22 01/09/23 01/07/23 History vit B,C-folic ac 800 mcg-zinc 12.5 1 tab PO DAILY 10/01/22 01/09/23 01/07/23 History mg-selen-D3 2,000 unit-vit E tablet (RenaPlex-D) lorazepam 1 mg tablet 1 mg PO DAILY PRN Anxiety #0.1 tabs 10/04/22 01/09/23 01/07/23 Rx losartan 50 mg tablet 100 mg PO DAILY #60 tabs 10/04/22 01/09/23 01/07/23 Rx minoxidil 2.5 mg tablet 5 mg PO BID #60 tabs 10/04/22 01/09/23 01/07/23 Rx amlodipine 10 mg tablet 10 mg PO DAILY 01/09/23 01/09/23 Unknown History atorvastatin 40 mg tablet 40 mg PO BEDTIME 01/09/23 01/09/23 Unknown History carvedilol 25 mg tablet See Rx Instructions .Route .COMPLEX 01/09/23 01/09/23 Unknown History clonidine 0.2 mg/24 hr weekly 0.2 mg topical Q7D 01/09/23 01/09/23 Unknown History transdermal patch hydralazine 100 mg tablet 100 mg PO Q8H 01/09/23 01/09/23 Unknown History hydromorphone 2 mg tablet 2 mg PO Q6H PRN Pain 01/09/23 01/09/23 Unknown History prasugrel 10 mg tablet 10 mg PO DAILY 01/09/23 01/09/23 Unknown History Allergies Allergy/AdvReac Type Severity Reaction Status Date / Time nifedipine Allergy ALGY-Swell Verified 10/09/22 11:19 Lip/Tongue/Throat Current Medications Generic Name Dose Route Start Last Admin Trade Name Nestorq PRN Reason Stop Dose Admin Amlodipine Besylate 10 mg 01/12/23 09:00 01/12/23 08:02 Amlodipine 10 Mg Tablet PO 10 mg DAILY ARTEM Administration Aspirin 81 mg 01/12/23 09:00 01/12/23 08:02 Aspirin 81 Mg Ec Tablet PO 81 mg DAILY ARTEM Administration Carvedilol 37.5 mg 01/12/23 09:00 01/12/23 08:03 Carvedilol 25 Mg Tablet PO 37.5 mg 0900,2100 ARTEM Administration Clonidine HCl 1 patch 01/12/23 08:00 01/12/23 08:04 Clonidine 0.2 Mg/24 Hr Patch TOPICAL 1 patch Q7D ARTEM Administration Cyanocobalamin 1,000 mcg 01/12/23 09:00 01/12/23 08:06 Cyanocobalamin 1,000 Mcg Tablet PO 1,000 mcg DAILY ARTEM Administration Famotidine 20 mg 01/12/23 08:00 01/12/23 08:02 Famotidine 20 Mg/2 Ml Inj IVP 20 mg Q12H ARTEM Administration Hydralazine HCl 100 mg 01/12/23 09:00 01/12/23 08:03 Hydralazine 50 Mg Tablet PO 100 mg TID ARTEM Administration Isosorbide Mononitrate 240 mg 01/12/23 09:00 01/12/23 08:03 Isosorbide Mononitrate Er 60 Mg Tablet PO 240 mg DAILY ARTEM Administration Losartan Potassium 100 mg 01/12/23 09:00 01/12/23 08:03 Losartan 50 Mg Tablet PO 100 mg DAILY ARTEM Administration Non-Formulary Medication 420 mg 01/12/23 09:00 01/12/23 08:06 Ferric Citrate [Auryxia] PO Not Given TID ARTEM Non-Formulary Medication 1 tab 01/12/23 09:00 01/12/23 08:05 Vit B,X-Rg-Clez-Selen-Vit D3-E [Renaplex-D] PO Not Given DAILY ARTEM Oxycodone HCl 5 mg 01/12/23 06:54 01/12/23 09:29 Oxycodone 5 Mg Ir Tab/Cap PO 5 mg Q8H PRN Administration MODERATE Pain Prasugrel 10 mg 01/12/23 09:00 01/12/23 08:04 Prasugrel 10 Mg Tablet PO 10 mg DAILY ARTEM Administration PFSH Acute PFSH: Medical History Abdominal ascites history of intermittent paracentesis, transudative fluid; prior work up has included negative biopsy, ceruloplasmin level normal, low iron, high ferritin, normal TIBC, negative HIV, hepatitis panel negative, JESÚS/SCL 70/double-stranded DNA antibodies negative, Alpha-fetoprotein level unremarkable, nonalcoholic by history, has hepatomegaly and splenomegaly Anemia chronic kidney disease Anxiety Arteriovenous fistula for hemodialysis in place, secondary Atherosclerosis of coronary artery Stent and balloon angioplasty to proximal 1 OM branch Chronic abdominal pain Chronic respiratory failure on home oxygen and bipap Congestive heart failure preserved ejection fraction COPD (chronic obstructive pulmonary disease) COVID 05/25 Degenerative disc disease, lumbar Depression Epididymitis 06/2022 ESRD on dialysis Generalized anxiety disorder with panic attacks History of cardiovascular stress test 07/2022 at [facility] perfusion imaging probably normal, no reversible defects, small fixed defect in apical anterior wall, EF 54%, nonischemic response to stress by EKG criteria History of coronary angiogram 11/2021 - patent stent History of home oxygen therapy Hypertension uncontrolled Hypertensive emergency recurrent episodes Hypertensive urgency Inguinal hernia Low back pain Nicotine dependence, cigarettes, with other nicotine-induced disorders Patient under care of multiple providers Pulmonary embolism 09/21 CTA inconclusive for very tiny peripheral LEFT lower lobe pulmonary artery sub segmental emboli versus poor opacification. Pulmonary hypertension Umbilical hernia Urethral stricture Uses bilevel positive airway pressure (BPAP) ventilation at home Surgical History H/O hand surgery Amputation right 2&3 fingers 2017 History of adenoidectomy Stented coronary artery Family History Other Hypertension Social History Smoking and tobacco status: current every day smoker cigarettes Packs smoked per day: 1.5 Years cigarettes smoked: 21 [ Other cigarette details: started age 20, currently 0.5ppd ] Alcohol intake: never Substance/Drug Use: never Number of children: 3 Current occupational status: disabled Do you think of yourself as: Straight/Heterosexual Vitals/I&O/Wt Last Vital Signs Temp 98.5 F 01/12/23 07:55 Pulse 102 H 01/12/23 09:10 Resp 20 H 01/12/23 09:29 BP 181/95 01/12/23 09:15 Pulse Ox 93 01/12/23 09:29 O2 Del Method Nasal Cannula 01/12/23 08:03 O2 Flow Rate 4 01/12/23 08:03 FiO2 80 01/12/23 05:44 Weight last 48 hrs Weight 77.111 kg Data 01/12/23 05:00 01/12/23 05:00 A&P Assessment and plan (1) ESRD on dialysis: Plan 1. End-stage renal disease: On TTS schedule as outpatient, last dialysis on Thursday, now presented with volume overload and hypertensive urgency. Plan for HD today, ultrafiltration as tolerated. 2. Hypertension: Restart home meds, blood pressure should improve after HD also. Acute on chronic respiratory failure: History of COPD CHF. Anemia: Hemoglobin 9.8, will order TREY Altered mental status: Likely multifactorial, monitor Patient evaluated using audiovisual cart. Time spent 40 minutes. Consult Attestations Medical Necessity Statement: Per medicine team Coding Level of Care Code Acute Code for Chg Fwd Diagnoses ESRD on dialysis N18.6; Z99.2
--- NOTE | 2023-01-12 12:37 | P.PN_ITS ---
Subjective Subjective: Lethargic, wakes up to voice, opens eyes, follows some basic directions. Not awake enough to provide history. Vitals/I&O/Wt Last Vital Signs Temp 98.5 F 01/12/23 07:55 Pulse 102 H 01/12/23 09:10 Resp 20 H 01/12/23 09:29 BP 181/95 01/12/23 09:15 Pulse Ox 93 01/12/23 09:29 O2 Del Method Nasal Cannula 01/12/23 08:03 O2 Flow Rate 4 01/12/23 08:03 FiO2 80 01/12/23 05:44 Weight last 48 hrs Weight 77.111 kg Physical Exam Const: GENERAL APPEARANCE: cooperative and lethargic ORIENTATION/CONSCIO USNESS: Yes lethargic HENMT: COMMON NORMALS: oropharynx normal Neck/C-Spine: COMMON NORMALS: no JVD Resp: COMMON NORMALS: normal respiratory effort and clear to auscultation bilaterally AUSCULTATION: clear to auscultation bilaterally Cardio: COMMON NORMALS: no JVD, regular rhythm, S1 normal heart sound present, S2 normal heart sound present and No murmurs present (Cardio) RHYTHM: regular rhythm HEART SOUNDS: S1 normal heart sound present and S2 normal heart sound present GI: COMMON NORMALS: Normal to inspection, nondistended, normoactive bowel sounds present, Soft to palpation and non-tender INSPECTION: Yes abdominal distension PALPATION: Yes Soft to palpation Extremity: COMMON NORMALS: no joint enlargement and no pedal edema Neuro: COMMON NORMALS: moves all extremities SENSORIUM/ORIENTATION: Yes lethargic Skin: COMMON NORMALS: no rashes or lesions noted GENERAL SKIN EXAM: no rashes or lesions noted Data 01/12/23 05:00 01/12/23 05:00 A&P Assessment and plan (1) Acute and chronic respiratory failure with hypoxia: (2) Abdominal ascites: (3) End-stage renal disease on hemodialysis: (4) Uncontrolled hypertension: Plan 42-year-old male with history of ESRD on hemodialysis was brought in by EMS for severe shortness of breath and abdominal pain, found to have acute hypoxic respiratory failure likely secondary to fluid overload and ascites Reviewed CBC, chemistry, ABG, chest x-ray. COVID PCR. Hepatitis panel are negative. Improving respiratory failure, weaned off BiPAP down to 4 L nasal cannula. Hemodialysis today. Reassess volume status. Noted significantly increased right lung infiltrate. Possibly aspiration pneumonitis secondary to AMS. Monitor for aspiration pneumonia. He is currently afebrile, without leukocytosis. Low threshold to initiate antibiotic. Aspiration precautions. Acute encephalopathy. Suspected acute metabolic encephalopathy versus possibly toxic secondary to medications. He remains with altered mental status, lethargy. Suspected uremia. Hold any medications that may contribute. Hold hydromorphone, lorazepam, oxycodone. Reviewed nephrology documentation, hemodialysis today. Discussed with case management. He is otherwise afebrile, leukocytosis. Abdomen soft, nontender. On Effient. ABG noted 7.42/47.8/50.4 Requesting to confirm home medication list. Renal diet Intermittent compression stockings for DVT prophylaxis IV Pepcid 20 mg every 12 for stress ulcer prophylaxis He is full code for now Discussed with case management. Attestations Medical Necessity Statement*: Continue admission for assessment management of acute encephalopathy, respiratory failure. Diagnoses Acute and chronic respiratory failure with hypoxia J96.21 Abdominal ascites R18.8 End-stage renal disease on hemodialysis N18.6; Z99.2 Uncontrolled hypertension I10
--- NOTE | 2023-01-12 15:26 | PC.NURSE ---
Received patient from ER at 0745. Patient is very difficult to rouse, but was able to move from er stretcher to ICU bed. was on 10L Oxymask, but switched to 3LNC and tolerated well. Temp: 98.1. BP: 182/102. HR: 97, SPO2: 97%. Joe is very lehatgic, will open eyes briefly and mumbles responses to orientation questions. WHen asked where he is he [facility], all other responses are too mumbled to understand.
--- NOTE | 2023-01-12 17:29 | PC.NURSE ---
Shift Summary: Uneventful shift. Patient rested in bed throughout the day, and received hemodialysis. 3,000ml was the HD goal, this nurse doesn't know the exact amount removed. Patient's lower extremities are less swollen, but would still describe as 3+ pitting edema. Mental status has improved, is now able to answer person, place, time, and situation questions, but is still lethargic. THis morning he was only able to say either his name, and sometimes where he was, that is if he didn't fall asleep while talking. .
[2023-01-12] MEDS: atorvastatin 40 mg Tablet PO (20:38)
[2023-01-13] VITALS (24 sets, daily range): BP systolic 110–174; BP diastolic 49–97; PULSE 67–85; RESP 12–22; TEMP 36.7–37.6; O2SAT 92–97
[2023-01-13] MEDS: oxyCODONE 5 mg IR Tab/Cap PO ×2 (00:39→10:21)
[2023-01-13 05:16] LABS: Basophils % 0.7 %; Eosinophils % 0.4 %; Hematocrit 27.1 % (37-53); Lymphocytes # 0.6 10^3/uL (0.8-4.8); Lymphocytes % 10.2 %; Mean Corpuscular HGB Conc 31.4 g/dL (30-55); Mean Corpuscular Hemoglobin 27.1 pg (27-33); Mean Corpuscular Volume 86.3 fl (82-101); Mean Platelet Volume 9.6 fL (7.4-10.4); Monocytes # 0.6 10^3/uL (0.2-0.9); Monocytes % 10.9 %; Neutrophils # 4.18 10^3/uL (1.8-7.7); Neutrophils % 77.4 %; Nucleated Red Blood Cells % 0 %; Platelet Count 213 10^3/cmm (157-399); Red Blood Count 3.14 10^6/uL (3.85-5.65)
[2023-01-13 05:41] LABS: Alanine Aminotransferase < 5 U/L (0-41); Albumin Level 3.6 g/dL (3.5-5.2); Alkaline Phosphatase 93 U/L (40-130); Anion Gap 13.9 (5-19); Aspartate Amino Transferase 13 U/L (0-40); Blood Urea Nitrogen 39 mg/dL (6-20); Calcium 9.7 mg/dL (8.5-10.5); Carbon Dioxide 29 mmol/L (22-29); Chloride 93 mmol/L (98-107); Glomerular Filtration Rate 11.1 mL/min (90-130); Glucose 112 mg/dL (65-115); Magnesium 2.1 mg/dL (1.7-2.3); Osmolality Calculated 284 mOsm/kg (285-295); Phosphorus 5.6 mg/dL (2.5-4.5); Potassium 3.9 mmol/L (3.5-5.1); Sodium 132 mmol/L (136-145); Total Bilirubin 0.9 mg/dL (0.15-1.2); Total Protein 6.6 g/dL (6.6-8.7)
[2023-01-13 06:11] LABS: NT Pro B Type Natriuretic Pept 70000 pg/mL (0-125)
[2023-01-13 10:11] LABS: Glucose Point of Care 97 mg/dL (70-110)
[2023-01-13] MEDS: isosorbide mononitrate ER 60 mg Tablet 240 MG PO (10:16)
[2023-01-13] MEDS: cyanocobalamin 1,000 mcg Tablet 1000 MCG PO (10:17)
[2023-01-13] MEDS: amlodipine 10 mg Tablet PO (10:17)
[2023-01-13] MEDS: losartan 50 mg Tablet 100 MG PO (10:17)
[2023-01-13] MEDS: famotidine 20 mg/2 mL INJ IVP (10:17)
--- NOTE | 2023-01-13 10:28 | PM.PN ---
Subjective Subjective: fels better Medications: Reviewed: Yes Vitals/I&O/Wt Last Vital Signs Temp 99.1 F 01/13/23 05:00 Pulse 85 01/13/23 08:00 Resp 18 01/13/23 10:21 BP 164/91 01/13/23 10:17 Pulse Ox 96 01/13/23 10:21 O2 Del Method Nasal Cannula 01/13/23 08:00 O2 Flow Rate 3 01/13/23 08:00 FiO2 80 01/12/23 05:44 01/12/23 01/13/23 01/13/23 22:59 06:59 14:59 Intake Total 600 / 700 222 / 922 Output Total 3300 / 3300 Balance -2700 / -2600 222 / -2378 Weight last 48 hrs Weight 82.6 kg Weight 77.111 kg Physical Exam Narrative: awake alert no distress Data 01/13/23 04:32 01/13/23 04:32 A&P Assessment and plan (1) ESRD on dialysis: Plan 1. End-stage renal disease: On TTS schedule as outpatient, last dialysis on Thursday, now presented with volume overload and hypertensive urgency. s/p HD yesterday and HD again today 2. Hypertension: Restart home meds, blood pressure should improve after HD Acute on chronic respiratory failure: History of COPD CHF. Anemia: Hemoglobin 8.5 , will order TREY Altered mental status: Likely multifactorial, monitor Patient evaluated using audiovisual cart. Time spent 40 minutes. Attestations Medical Necessity Statement*: per medicine team Coding Level of Care Code Acute Code for Chg Fwd Diagnoses ESRD on dialysis N18.6; Z99.2
[2023-01-13] MEDS: carvedilol 25 mg Tablet 37.5 MG PO (11:46)
[2023-01-13] MEDS: hyDRALAzine 50 mg Tablet 100 MG PO (11:46)
--- NOTE | 2023-01-13 14:41 | P.DS_ITS ---
Discharge Providers Date of Admission: 01/12/23 06:27 Date of Discharge: January 13, 2023 Attending Provider at Admission: Lana Sawant MD Attending Provider at Discharge: Bob Gonzalez Primary Care Provider: Mal Peres DO Diagnoses at Discharge Discharge Diagnosis (1) ESRD on dialysis: Status: Acute Reason for Visit Reason for Visit: Anxiety Brief History: 42-year-old male with a history of ESRD on hemodialysis Thursday and Thursday ascites chronic respiratory failure was brought in by EMS for complaint of severe shortness of breath and abdominal pain.? He was found to have altered mental status in the ER, hypertensive with systolic blood pressure of 180s and hypoxic on 4 L nasal cannula likely secondary to fluid overload and ascites. Hospital Course Hospital Course He underwent additional hemodialysis yesterday. We held medications which may be contributing to his mental status change, including hydrocodone, possibly lorazepam, possibly oxycodone. Today he is awake and alert. Oxygenation has improved, he has come down to 3 L nasal cannula oxygen. He states he is feeling back to his baseline. Discussed with him concern regarding fluid overload, but also buildup of medication/toxic effect, risk of overdose with opioid. He states he does not use oxycodone or lorazepam anymore. We will discontinue these medications. Additionally discussed with him risk of continuing hydrocodone. Possible disabling or life-threatening risk in case of severe toxicity/respiratory depression. He states that his family has been provided with naloxone before as well and know how to use it. He agreed to decrease the dose to 1 mg twice daily as needed and hydrocodone, taking it cautiously only if needed and while he is awake and alert. Please reassess. Continue to try to taper off opioids if possible. Avoid any other medications that may contribute to mental status changes. He states he has not missed any hemodialysis. He is undergoing additional dialy sis today prior to discharge. He is otherwise having abdominal distention, supposed to have paracentesis on Thursday, however, was not able to. He had been continued on prasugrel, which he normally holds beforehand, as such this medication is held for now, and he will be referred to return for paracentesis. Physical Exam Const: COMMON NORMALS: alert GENERAL APPEARANCE: cooperative ORIENTATION/CONSCIOUSNESS: Yes awake, Yes oriented to person, Yes oriented to place and Yes oriented to time HENMT: COMMON NORMALS: oropharynx normal Neck/C-Spine: COMMON NORMALS: no JVD Resp: COMMON NORMALS: normal respiratory effort and clear to auscultation bilaterally AUSCULTATION: clear to auscultation bilaterally Cardio: COMMON NORMALS: no JVD, regular rhythm, S1 normal heart sound present, S2 normal heart sound present and No murmurs present (Cardio) RHYTHM: regular rhythm HEART SOUNDS: S1 normal heart sound present and S2 normal heart sound present GI: COMMON NORMALS: Soft to palpation and non-tender INSPECTION: Yes abdominal distension PALPATION: Yes Soft to palpation Extremity: COMMON NORMALS: no joint enlargement and no pedal edema Neuro: COMMON NORMALS: moves all extremities SENSORIUM/ORIENTATION: Yes alert, Yes oriented to person, Yes oriented to place and Yes oriented to time Skin: COMMON NORMALS: no rashes or lesions noted GENERAL SKIN EXAM: no rashes or lesions noted Discharge Data Studies Completed and Pending Completed Studies During Hospitalization Category Date Time Status XR chest 1V portable [id number] Stat Exams 01/12/23 05:17 Completed Radiology Impressions Chest X-Ray 01/12/23 05:17 IMPRESSION: Significantly increased right lung infiltrate. Laboratory Results WBC 5.40 10^3/uL (3.29-11.43) 01/13/23 04:32 RBC 3.14 10^6/uL (3.85-5.65) L 01/13/23 04:32 Hgb 8.50 g/dL (11.27-16.99) L 01/13/23 04:32 Hct 27.1 % (37-53) L 01/13/23 04:32 MCV 86.3 fl (82-101) 01/13/23 04:32 MCH 27.1 pg (27-33) 01/13/23 04:32 MCHC 31.4 g/dL (30-55) 01/13/23 04:32 RDW 19.0 % (12.1-15.1) H 01/13/23 04:32 Plt Count 213 10^3/cmm (157-399) 01/13/23 04:32 MPV 9.6 fL (7.4-10.4) 01/13/23 04:32 Neut % (Auto) 77.4 % 01/13/23 04:32 Lymph % (Auto) 10.2 % 01/13/23 04:32 [place] % (Auto) 10.9 % 01/13/23 04:32 Eos % (Auto) 0.4 % 01/13/23 04:32 Baso % (Auto) 0.7 % 01/13/23 04:32 Neut # (Auto) 4.18 10^3/uL (1.8-7.7) 01/13/23 04:32 Lymph # (Auto) 0.6 10^3/uL (0.8-4.8) L 01/13/23 04:32 [place] # (Auto) 0.6 10^3/uL (0.2-0.9) 01/13/23 04:32 Eos # (Auto) 0.0 10^3/uL (0.0-0.8) 01/13/23 04:32 Baso # (Auto) 0.0 10^3/uL (0.0-0.1) 01/13/23 04:32 Nucleated RBC % (auto) 0 % 01/13/23 04:32 Nucleated RBCs # 0.0 /100WBC 01/13/23 04:32 Specimen Type Arterial 01/12/23 05:35 Sample Site Brachial, right 01/12/23 05:35 ABG pH 7.42 (7.35-7.45) 01/12/23 05:35 ABG pCO2 47.8 mmHg (35-45) H 01/12/23 05:35 ABG pO2 52.4 mmHg (80.0-100.0) L 01/12/23 05:35 ABG HCO3 30.9 mmol/L (22-26) H 01/12/23 05:35 ABG Base Excess 5.6 mmol/L (-2.0-2.0) H 01/12/23 05:35 Alexei Test N/a 01/12/23 05:35 Hematocrit 31.4 % (42-52) L 01/12/23 05:35 O2 Delivery Device Nc 01/12/23 05:35 O2 Liters/Min 6.0 % 01/12/23 05:35 FiO2 60.0 % 01/12/23 05:35 Research Administrator ID [email or web address] 01/12/23 05:35 Sodium 132 mmol/L (136-145) L 01/13/23 04:32 Potassium 3.9 mmol/L (3.5-5.1) 01/13/23 04:32 Chloride 93 mmol/L (98-107) L 01/13/23 04:32 Carbon Dioxide 29 mmol/L (22-29) 01/13/23 04:32 Anion Gap 13.9 (5-19) 01/13/23 04:32 BUN 39 mg/dL (6-20) H 01/13/23 04:32 Creatinine 5.7 mg/dL (0.7-1.2) H* 01/13/23 04:32 GFR Calculation 11.1 mL/min (90-130) L 01/13/23 04:32 Glucose 112 mg/dL (65-115) 01/13/23 04:32 POC Glucose 97 mg/dL (70-110) 01/13/23 08:05 Calculated Osmolality 284 mOsm/kg (285-295) L 01/13/23 04:32 Lactic Acid 0.4 mmol/L (0.5-2.2) L 01/12/23 05:17 Calcium 9.7 mg/dL (8.5-10.5) 01/13/23 04:32 Phosphorus 5.6 mg/dL (2.5-4.5) H 01/13/23 04:32 Magnesium 2.1 mg/dL (1.7-2.3) 01/13/23 04:32 Total Bilirubin 0.9 mg/dL (0.15-1.2) 01/13/23 04:32 AST 13 U/L (0-40) 01/13/23 04:32 ALT < 5 U/L (0-41) 01/13/23 04:32 Alkaline Phosphatase 93 U/L (40-130) 01/13/23 04:32 NT-Pro-B Natriuret Pep 74840 pg/mL (0-125) H 01/13/23 04:32 Total Protein 6.6 g/dL (6.6-8.7) 01/13/23 04:32 Albumin 3.6 g/dL (3.5-5.2) 01/13/23 04:32 Globulin 3.0 g/dL (1.3-4.6) 01/13/23 04:32 Coronavirus 229E (PCR) Not detected (NOT DETECT) 01/12/23 06:00 Hep Bs Antigen Non-reactive (Nonreactive) 01/12/23 05:00 Hep Bs Antibody 71.3 (11.5-1000) 01/12/23 05:00 SARS-CoV-2 (PCR) Not detected (NOT DETECT) 01/12/23 06:00 Vitals Last Vital Signs Temp 99.3 F 01/13/23 13:24 Pulse 76 01/13/23 13:24 Resp 15 01/13/23 13:24 BP 138/75 01/13/23 13:24 Pulse Ox 97 01/13/23 11:00 O2 Del Method Nasal Cannula 01/13/23 08:00 O2 Flow Rate 3 01/13/23 08:00 FiO2 80 01/12/23 05:44 Discharge Plan Discharge Patient Disposition: Home Condition: Stable Prescriptions: Continued (DME) DME - BIPAP See Rx Instructions .Route .MEDSUPPLY Qty: 1 0RF Rx Instructions: Inspiratory Pressure: 16mmHg Expiratory Pressure: 8 mmHg Will need oxygen bled in to the machine to maintain sats >/= 90%. (DME) DME - Oxygen See Rx Instructions .Route .MEDSUPPLY Qty: 1 0RF Rx Instructions: Supplemental Oxygen bled into BIPAP at 2-3L to maintain oxygen sats at >/= 90%. Auryxia 210 mg iron Tablet See Rx Instructions .ROUTE .COMPLEX Rx Instructions: 420 mg (2 tabs) orally three times a day and 210mg (1 tab) with snacks aspirin 81 mg tablet,delayed release (DR/EC) 81 mg PO DAILY pantoprazole 40 mg tablet,delayed release (DR/EC) 40 mg PO DAILY isosorbide mononitrate 120 mg tablet extended release 24 hr 240 mg PO DAILY RenaPlex-D 800 mcg-12.5 mg -2,000 unit tablet 1 tab PO DAILY losartan 50 mg tablet 100 mg PO DAILY Qty: 60 0RF minoxidil 2.5 mg Tablet 5 mg PO BID Qty: 60 0RF carvedilol 25 mg tablet 37.5 mg PO Q12H clonidine 0.2 mg/24 hr patch weekly 0.2 mg topical Q7D atorvastatin 40 mg tablet 40 mg PO BEDTIME amlodipine 10 mg tablet 10 mg PO DAILY hydralazine 100 mg tablet 100 mg PO Q8H prasugrel 10 mg tablet 10 mg PO DAILY cyanocobalamin (vitamin B-12) 1,000 mcg capsule 1,000 mcg PO DAILY Qty: 30 0RF naloxone 4 mg/actuation spray,non-aerosol See Rx Instructions .ROUTE .COMPLEX Rx Instructions: ADMINISTER 1 SPRAY ( 4 MG ) IN ONE NOSTRIL ( ALTERNATE NOSTRIL WITH EACH DOSE ) EVERY 5 MINUTES NEEDED FOR OPIOID OVERDOSE SYMPTOMS Changed hydromorphone 2 mg tablet 1 mg PO BID MDD 3 tabs PRN (Reason: Pain) Qty: 1 0RF Rx Instructions: Dose change only Discontinued oxycodone 5 mg tablet 5 mg PO Q6H MDD 4 tabs PRN (Reason: Pain) lorazepam 1 mg tablet 1 mg PO DAILY PRN (Reason: Anxiety) Qty: 0.1 0RF Discharge Orders: Discharge Order (Routine); Ordered 01/13/23 Ordered By: Bob Gonzalez Referrals: [facility] [Provider Group] - 01/16/23 (Paracentesis) Mal Peres DO [Primary Care Provider] - 01/19/23 2:45 pm Patient Instructions: Dialysis Diet (DC), Hemodialysis (DC), Opioid Safety Activity Restrictions/Additional Instructions: As discussed please decrease hydromorphone dose to 1 mg twice daily as needed for pain. Revisit with family use of Narcan if needed in case of respiratory depression due to opioid. Avoid any other medications that may contribute to changes in mental status. Hold blood thinner medication follow-up for paracentesis on Thursday (order schedule). Follow-up with your primary doctor for reassessment. Discharge Attestations Time Spent in Discharge Care*: greater than 30 min Status at Discharge: Cognitive status at discharge: cognitively intact , Behavioral status at discharge: cooperative , Quality Metrics Clinical Quality Measures [ No reported AMI, CVA or VTE this stay] Coding Level of Care Code 22806 Total time (in minutes) for Discharge: 40 Diagnoses ESRD on dialysis N18.6; Z99.2
--- NOTE | 2023-01-13 19:17 | PC.NURSE ---
patient discahrged at 1700. REviewed discharge instruction, medication changes, upcoming dialysis appointments, and activity. Right arm IV removed. signature form signed. Taken out to vehicle via wheelchair and family member took patient home.
== END 2023-01-13 17:00 | disposition home or self-care (01) | DRG 640 ==
LOC: ER 05:38 → ICU 06:28
PROVIDERS: Hospitalist; Admitting Provider Internal Medicine; Emergency Provider Emergency Medicine; PCP Family Medicine; Visit Provider Internal Medicine
DX: E87.79 Other fluid overload (principal); G92.8 Other toxic encephalopathy; J96.21 Acute and chronic respiratory failure with hypoxia; N18.6 End stage renal disease; R18.8 Other ascites; I13.2 Hypertensive heart and chronic kidney disease with heart failure and with stage 5 chronic kidney disease, or end stage renal disease; F17.210 Nicotine dependence, cigarettes, uncomplicated; Z99.2 Dependence on renal dialysis; Z95.828 Presence of other vascular implants and grafts; Z99.81 Dependence on supplemental oxygen; I50.9 Heart failure, unspecified; J44.9 Chronic obstructive pulmonary disease, unspecified; Z95.5 Presence of coronary angioplasty implant and graft; I27.20 Pulmonary hypertension, unspecified; R41.82 Altered mental status, unspecified; Z79.82 Long term (current) use of aspirin; I16.0 Hypertensive urgency
CPT/HCPCS: 36415; 36416; 36600; 71045; 80053; 82803; 82962; 83605; 83735; 83880; 84100; 85025; 86706; 87340; 87635; 90935; 93005; 94664; 96374; 96375; 96376; 99285; J2060; J2270; J3490; Q3014

== ENCOUNTER 2023-01-19 10:11 | Day surgery (SDC) | payer MEDICARE, MEDICAID, SELFPAY ==
[2023-01-19 10:34] VITALS: BP 155/84; PULSE 97; RESP 20; O2SAT 94
--- NOTE | 2023-01-19 10:55 | US_ITS ---
WS: [id number] ULTRASOUND-GUIDED THERAPEUTIC PARACENTESIS Procedure, risks, and complications have been explained to the patient. Consent is obtained. Utilizing aseptic technique and 1% buffered lidocaine, a small dermatome was made through which a 5 F rench Yueh catheter was inserted. Approximately 4700 ml of light pink peritoneal fluid was obtained w ithout difficulty. No complications encountered. IMPRESSION: Uncomplicated paracentesis yielding 4700 ml of peritoneal fluid.
[2023-01-19] MEDS: albumin 50 G/200 ML BAG 60 G IV (12:18)
== END 2023-01-19 12:29 | disposition home or self-care (01) ==
LOC: GILAB 10:23
PROVIDERS: Radiology Diagnostic Radiology; PCP Family Medicine; Visit Provider Internal Medicine
PROC: (CPT 49082; principal; 2023-01-19 11:30)
DX: R18.8 Other ascites (principal)
CPT/HCPCS: 49083; 96365; P9046

== ENCOUNTER 2023-01-28 12:42 | Day surgery (SDC) | payer MEDICARE, MEDICAID, SELFPAY ==
[2023-01-27 13:45] VITALS: BMI 24.6
--- NOTE | 2023-01-28 12:52 | US_ITS ---
WS: [id number] INDICATION: Ascites TECHNIQUE: Ultrasound abdomen limited FINDINGS: Mild four-quadrant ascites. Discussed with patient and paracentesis deferred at this time. IMPRESSION: See above
[2023-01-28 12:55] VITALS: BP 182/102; PULSE 96; RESP 22; TEMP 36.9; O2SAT 95
== END 2023-01-28 14:20 | disposition home or self-care (01) ==
LOC: GILAB 12:43
PROVIDERS: Radiology Neuroradiology; PCP Family Medicine; Visit Provider Internal Medicine
DX: R18.8 Other ascites (principal)
CPT/HCPCS: 49083; 76705

== ENCOUNTER → 2023-02-11 12:32 | Day surgery (SDC) | payer MEDICARE, MEDICAID, SELFPAY ==
[2023-02-10 08:39] VITALS: BMI 26.4
[2023-02-11 12:40] VITALS: BP 131/70; PULSE 85; RESP 20; TEMP 36.6; O2SAT 93; BMI 26.4
--- NOTE | 2023-02-11 12:41 | US_ITS ---
WS: [id number] ULTRASOUND-GUIDED PARACENTESIS CLINICAL INFORMATION: ascites COMPARISON: None. Procedure Informed consent: The risks, benefits, and alternatives of the procedure were discussed with the mariah ent. Verbal and written consent was obtained. Timeout: A timeout was performed to confirm the correct patient, procedure, and site. Preparation: A suitable skin site was identified. The patient was prepped and draped in usual sterile fashion. Lidocaine 1% was used for local anesthesia. Catheter: 4 Sinhala One-step Yueh catheter. Side: LEFT lower quadrant. Fluid Volume: 2950 ml Color: Clear yellow DISPOSITION: Discarded safely. Complications: None. Patient disposition: Discharged from the department in stable condition. IMPRESSION: Uncomplicated ultrasound-guided paracentesis. Removal of 2950 cc
[2023-02-11] MEDS: albumin 50 G/200 ML BAG 60 G IV (13:40)
== END ==
PROVIDERS: Radiology Neuroradiology; PCP Family Medicine; Visit Provider Internal Medicine Nephrology
PROC: (CPT 49082; principal; 2023-02-11 13:30)
DX: R18.8 Other ascites (principal)
CPT/HCPCS: 49083; 96365; P9046

== ENCOUNTER 2023-02-14 16:51 | Observation (INO) | payer MEDICARE, MEDICAID, SELFPAY ==
[2023-02-14] VITALS (9 sets, daily range): BP systolic 137–165; BP diastolic 77–84; PULSE 81–91; RESP 20–22; TEMP 36.7; O2SAT 93–96; BMI 29.0
--- NOTE | 2023-02-14 17:23 | XRR_ITS ---
PROCEDURE INFORMATION: Exam: XR Chest Exam date and time: 02/14/2023 5:46 PM Age: 42 years old Clinical indication: Shortness of breath; Additional info: SOB TECHNIQUE: Imaging protocol: Radiologic exam of the chest. Views: 1 view. COMPARISON: CR (CHEST, ) 01/12/2023 5:26 AM FINDINGS: Lungs: Diffuse increased interstitial markings with peribronchial cuffing throughout both lungs is nonspecific but can be seen the setting bronchitis, pulmonary vascular congestion and viral infection. No focal consolidation. Improved aeration in the right lung compared to the prior chest radiograph. Pleural spaces: Unremarkable. No pleural effusion. No pneumothorax. Heart/Mediastinum: The heart is enlarged. Bones/joints: Unremarkable. XR/XR chest 1V portable [id number] IMPRESSION: 1. Diffuse increased interstitial markings with peribronchial cuffing throughout both lungs is nonspecific but can be seen the setting bronchitis, pulmonary vascular congestion and viral infection. 2. No focal consolidation. Improved aeration in the right lung compared to the prior chest radiograph. 3. The heart is enlarged.
[2023-02-14 17:34] LABS: Eosinophils % 0.1 %; Hematocrit 24.9 % (37-53); Lymphocytes # 0.2 10^3/uL (0.8-4.8); Mean Corpuscular HGB Conc 32.5 g/dL (30-55); Mean Corpuscular Volume 86.2 fl (82-101); Mean Platelet Volume 9.1 fL (7.4-10.4); Monocytes # 0.3 10^3/uL (0.2-0.9); Monocytes % 4.6 %; Neutrophils # 6.19 10^3/uL (1.8-7.7); Neutrophils % 91.4 %; Nucleated Red Blood Cells % 0 %; Platelet Count 204 10^3/cmm (157-399); Red Blood Count 2.89 10^6/uL (3.85-5.65); Red Cell Distribution Width 18.3 % (12.1-15.1); White Blood Count 6.77 10^3/uL (3.29-11.43)
[2023-02-14 18:06] LABS: Alanine Aminotransferase 7 U/L (0-41); Alkaline Phosphatase 106 U/L (40-130); Anion Gap 14.7 (5-19); Aspartate Amino Transferase 11 U/L (0-40); Blood Urea Nitrogen 23 mg/dL (6-20); Calcium 9.8 mg/dL (8.5-10.5); Carbon Dioxide 33 mmol/L (22-29); Chloride 91 mmol/L (98-107); Globulin 3.3 g/dL (1.3-4.6); Glomerular Filtration Rate 15.4 mL/min (90-130); Glucose 126 mg/dL (65-115); Osmolality Calculated 285 mOsm/kg (285-295); Potassium 3.7 mmol/L (3.5-5.1); Sodium 135 mmol/L (136-145); Total Bilirubin 0.4 mg/dL (0.15-1.2); Total Protein 7.3 g/dL (6.6-8.7)
[2023-02-14 18:32] LABS: NT Pro B Type Natriuretic Pept > 70000 pg/mL (0-125)
[2023-02-14 19:01] LABS: ABG PCO2 51.8 mmHg (35-45); ABG PH Result 7.45 (7.35-7.45); Arterial Blood Gas Hematocrit 26.5 % (42-52); Base Excess ABG 10.4 mmol/L (-2.0-2.0); Blood Gas Allen Test Pos; Blood Gas Sample Type Arterial; Carboxyhemoglobin 2.3 %THgb (0.4-20.1); HCO3 ABG 35.7 mmol/L (22-26); HGB O2 Sat 93.6 % (95-100); Ionized Calcium Level - ABG 1.2 mmol/L (1.1-1.4); Methemoglobin 0.5 % (0.4-1.5); Oxygen Saturation ABG 96.3; PO2 ABG 70.9 mmHg (80.0-100.0); Potassium Level - ABG 3.8 mmol/L (3.5-5.0); Total Hemoglobin 8.7 g/dL (14-18)
[2023-02-14 19:02] LABS: Blood Gas Sample Site Radial, right; Oxygen Device NC
[2023-02-14] MEDS: morphine 4 mg/mL SDV 1 mL IVP (21:16)
--- NOTE | 2023-02-14 22:10 | PM.HP ---
Providers/Chief Complaint Admitting Physician: Lana Sawant MD Primary Care Provider: Mal Peres DO Chief Complaint: DECREASED LOC History of Present Illness Mal Gibbs is a 42 year old male with history of COPD CHF ESRD on hemodialysis Thursday abdominal ascites anemia presented today with complaint of shortness of breath postdialysis. He denies any history of fever cold cough abdominal pain nausea vomiting dizziness. He has had multiple admissions for similar complaints in the past. He is well-known to nephrology . His labs has been stable no new findings noted .as per the ER physician after discussion with nephrology he is planned for repeat dialysis in a.m. Review of Systems Narrative: As per HPI Medications/Allergies Home Medications Medication Instructions Recorded Confirmed Last Taken Type ferric citrate 210 mg iron tablet See Rx Instructions .Route .COMPLEX 11/03/21 02/11/23 02/09/23 History (Auryxia) aspirin 81 mg tablet,delayed 81 mg PO DAILY 02/21/22 02/11/23 02/09/23 History release pantoprazole 40 mg tablet,delayed 40 mg PO DAILY 02/21/22 02/11/23 02/09/23 History release DME - BIPAP #1 ea 02/25/22 02/11/23 01/16/23 Rx DME - Oxygen #1 ea 02/25/22 02/11/23 01/16/23 Rx cyanocobalamin (vitamin B-12) 1,000 mcg PO DAILY #30 caps 08/07/22 02/11/23 02/09/23 Rx 1,000 mcg capsule isosorbide mononitrate 120 mg 240 mg PO DAILY 10/01/22 02/11/23 02/09/23 History tablet,extended release 24 hr vit B,C-folic ac 800 mcg-zinc 12.5 1 tab PO DAILY 10/01/22 02/11/23 02/09/23 History mg-selen-D3 2,000 unit-vit E tablet (RenaPlex-D) losartan 50 mg tablet 100 mg PO DAILY #60 tabs 10/04/22 02/11/23 02/09/23 Rx minoxidil 2.5 mg tablet 5 mg PO BID #60 tabs 10/04/22 02/11/23 02/09/23 Rx amlodipine 10 mg tablet 10 mg PO DAILY 01/09/23 02/11/23 02/09/23 History atorvastatin 40 mg tablet 40 mg PO BEDTIME 01/09/23 02/11/23 02/09/23 History carvedilol 25 mg tablet 37.5 mg PO Q12H 01/09/23 02/11/23 02/09/23 History clonidine 0.2 mg/24 hr weekly 0.2 mg topical Q7D 01/09/23 02/11/23 02/09/23 History transdermal patch hydralazine 100 mg tablet 100 mg PO Q8H 01/09/23 02/11/23 02/09/23 History prasugrel 10 mg tablet 10 mg PO DAILY 01/09/23 02/11/23 02/09/23 History naloxone 4 mg/actuation nasal spray See Rx Instructions .Route .COMPLEX 01/12/23 02/11/23 01/16/23 History hydromorphone 2 mg tablet 1 mg PO BID PRN Pain #1 tab 01/13/23 02/11/23 02/09/23 Rx Allergies Allergy/AdvReac Type Severity Reaction Status Date / Time spironolactone Allergy Intermediate facial Verified 02/14/23 16:59 swelling nifedipine Allergy ALGY-Swell Verified 02/14/23 16:59 Lip/Tongue/Throat PFSH Acute PFSH: Medical History Abdominal ascites history of intermittent paracentesis, transudative fluid; prior work up has included negative biopsy, ceruloplasmin level normal, low iron, high ferritin, normal TIBC, negative HIV, hepatitis panel negative, JESÚS/SCL 70/double-stranded DNA antibodies negative, Alpha-fetoprotein level unremarkable, nonalcoholic by history, has hepatomegaly and splenomegaly Anemia chronic kidney disease Anxiety Arteriovenous fistula for hemodialysis in place, secondary Atherosclerosis of coronary artery Stent and balloon angioplasty to proximal 1 OM branch Chronic abdominal pain Chronic respiratory failure on home oxygen and bipap Congestive heart failure preserved ejection fraction COPD (chronic obstructive pulmonary disease) COVID 05/25 Degenerative disc disease, lumbar Depression Epididymitis 06/2022 ESRD on dialysis Generalized anxiety disorder with panic attacks History of cardiovascular stress test 07/2022 at [facility] perfusion imaging probably normal, no reversible defects, small fixed defect in apical anterior wall, EF 54%, nonischemic response to stress by EKG criteria History of coronary angiogram 11/2021 - patent stent History of home oxygen therapy Hypertension uncontrolled Hypertensive emergency recurrent episodes Hypertensive urgency Inguinal hernia Low back pain Nicotine dependence, cigarettes, with other nicotine-induced disorders Patient under care of multiple providers Pulmonary embolism 09/21 CTA inconclusive for very tiny peripheral LEFT lower lobe pulmonary artery sub segmental emboli versus poor opacification. Pulmonary hypertension Umbilical hernia Urethral stricture Uses bilevel positive airway pressure (BPAP) ventilation at home Surgical History H/O hand surgery Amputation right 2&3 fingers 2017 History of adenoidectomy Stented coronary artery Family History Other Hypertension Social History Smoking and tobacco/nicotine status: current every day tobacco/nicotine user cigarettes Packs smoked per day: 1.5 Years cigarettes smoked: 21 [ Other cigarette details: started age 20, currently 0.5ppd ] Alcohol intake: never Substance/Drug Use: never Number of children: 3 Current occupational status: disabled Do you think of yourself as: Straight/Heterosexual Vitals/I&O/Wt Last Vital Signs Temp 98.1 F 02/14/23 16:53 Pulse 87 02/14/23 21:52 Resp 20 H 02/14/23 21:52 BP 147/77 02/14/23 21:52 Pulse Ox 93 02/14/23 21:52 O2 Del Method Nasal Cannula 02/14/23 21:09 O2 Flow Rate 4 02/14/23 21:09 Weight last 48 hrs Weight 99.79 kg Physical Exam Narrative: She is drowsy but arousable, oriented x3 not in acute distress Chest clear to auscultation bilaterally Cardiovascular normal heart sounds no murmurs Abdomen soft distended nontender normal bowel sounds Extremity 2+ pitting edema bilateral lower extremity Data 02/14/23 17:32 02/14/23 17:32 CXR: Radiologist's impression: IMPRESSION: 1. ? Diffuse increased interstitial markings with peribronchial cuffing throughout both lungs is nonspecific but can be seen the setting bronchitis, pulmonary vascular congestion and viral infection. 2. ? No focal consolidation. Improved aeration in the right lung compared to the prior chest radiograph. 3. ? The heart is enlarged. ? A&P Assessment and plan (1) Acute and chronic respiratory failure with hypoxia: (2) Breath shortness: Plan 42 year old male with history of COPD CHF ESRD on hemodialysis Thursday abdominal ascites anemia presented today with complaint of shortness of breath postdialysis likely secondary to fluid overload Discussed with nephrology, patient to have repeat dialysis in a.m. Resume home medications IV Pepcid 20 mg every 12 hours for stress ulcer prophylaxis Subcutaneous Lovenox 30 mg daily for DVT prophylaxis He is full code for now. Attestations Medical Necessity Statement*: He is here for observation for shortness of breath due to fluid overload Time Spent in Patient Care: 25 minutes Coding Level of Care Code Acute Code for [facility] Diagnoses Acute and chronic respiratory failure with hypoxia J96.21 Breath shortness R06.02 Time Spent (min) 25
--- NOTE | 2023-02-14 22:32 | ED_ITS ---
HPI - SOB/Dyspnea General: Chief Complaint: Shortness of Breath/Dyspnea Stated Complaint: DECREASED LOC Time Seen by Provider: 02/14/23 16:59 History of Present Illness: HPI Narrative: 42-year-old male with complex medical history including end-stage renal disease, chronic leg swelling, chronic abdominal pain, CHF, COPD, mood disorder and panic attack. Patient presents emergency room today with shortness of breath after dialysis. Patient denies any cough, coughing up blood or vomiting blood. Patient reveals increased swelling of his leg and swelling. No fever or chills. Patient with multiple ER visit due to similar complaint in the past. Associated symptoms: Deny chest congestion, chest pain, fever(s), hemoptysis or palpitations Review of Systems General: Reports: 10 or more systems reviewed and unremarkable except in HPI and below Const: Denies: fever(s), chills, body aches, change in appetite, change in weight, fatigue or malaise Card: Reports: edema, swelling of feet/ankles and dyspnea on exertion; Denies: chest pain, palpitations or irregular heart rhythm Resp: Reports: dyspnea; Denies: productive cough, non-productive cough, wheezing, stridor, pain on inspiration, change in phlegm color, hemoptysis or chest congestion PFSH ED PFSH: Medical History Abdominal ascites history of intermittent paracentesis, transudative fluid; prior work up has included negative biopsy, ceruloplasmin level normal, low iron, high ferritin, normal TIBC, negative HIV, hepatitis panel negative, JESÚS/SCL 70/double-stranded DNA antibodies negative, Alpha-fetoprotein level un remarkable, nonalcoholic by history, has hepatomegaly and splenomegaly Anemia chronic kidney disease Anxiety Arteriovenous fistula for hemodialysis in place, secondary Atherosclerosis of coronary artery Stent and balloon angioplasty to proximal 1 OM branch Chronic abdominal pain Chronic respiratory failure on home oxygen and bipap Congestive heart failure preserved ejection fraction COPD (chronic obstructive pulmonary disease) COVID 05/25 Degenerative disc disease, lumbar Depression Epididymitis 06/2022 ESRD on dialysis Generalized anxiety disorder with panic attacks History of cardiovascular stress test 07/2022 at [facility] perfusion imaging probably normal, no reversible defects, small fixed defect in apical anterior wall, EF 54%, nonischemic response to stress by EKG criteria History of coronary angiogram 11/2021 - patent stent History of home oxygen therapy Hypertension uncontrolled Hypertensive emergency recurrent episodes Hypertensive urgency Inguinal hernia Low back pain Nicotine dependence, cigarettes, with other nicotine-induced disorders Patient under care of multiple providers Pulmonary embolism 09/21 CTA inconclusive for very tiny peripheral LEFT lower lobe pulmonary artery sub segmental emboli versus poor opacification. Pulmonary hypertension Umbilical hernia Urethral stricture Uses bilevel positive airway pressure (BPAP) ventilation at home Surgical History H/O hand surgery Amputation right 2&3 fingers 2017 History of adenoidectomy Stented coronary artery Family History Other Hypertension Social History Smoking and tobacco/nicotine status: current every day tobacco/nicotine user cigarettes Packs smoked per day: 1.5 Years cigarettes smoked: 21 [ Other cigarette details: started age 20, currently 0.5ppd ] Alcohol intake: never Substance/Drug Use: never Number of children: 3 Current occupational status: disabled Do you think of yourself as: Straight/Heterosexual Physical Exam Const: COMMON NORMALS: no acute distress HENMT: COMMON NORMALS: normocephalic, atraumatic, hearing grossly normal bilaterally, external ears normal, EAC's normal, TM's normal bilaterally, Normal external nose present, Normal nasal mucous membranes and turbinates present, moist oral mucous membranes, oropharynx normal, dentition normal and gingiva normal HEAD & SCALP: normocephalic and atraumatic NOSE: Normal external nose present and Normal nasal mucous membranes and turbinates present EXTERNAL EAR: Yes external ears normal EXTERNAL AUDITORY CANAL: EAC's normal TYMPANIC MEMBRANE: TM's normal bilaterally Neck/C-Spine: COMMON NORMALS: full ROM, no lymphadenopathy, supple, no meningeal signs, no JVD, Thyroid normal and No carotid bruits THYROID: Thyroid normal Chest: COMMONS NORMALS: normal inspection of the chest, normal palpation of entire chest wall, normal inspection of the breasts and normal palpation of the breasts Breast/axilla inspection: Yes normal inspection of the breasts BREAST/AXILLA PALPATION: Yes normal palpation of the breasts Resp: COMMON NORMALS: percussion normal EFFORT & INSPECTION: No respiratory distress, Yes decreased respiratory effort, No labored, No retractions and No uses accessory muscles AUSCULTATION: diminished lung sounds PERCUSSION: percussion normal Cardio: COMMON NORMALS: no JVD, regular rate, regular rhythm and S1 normal he art sound present PALPATION: normal PMI RATE: regular rate RHYTHM: regular rhythm HEART SOUNDS: S1 normal heart sound present BRUITS: no abdominal aortic bruits GI: COMMON NORMALS: Normal to inspection, nondistended, normoactive bowel sounds present, Soft to palpation, non-tender, No hepatosplenomegaly present, no masses and no bruits PALPATION: Yes Soft to palpation and Yes No hep atosplenomegaly present OTHER: Some edema Extremity: NARRATIVE EXTREMITY EXAM: Left arm with AV vascular shunt audible bruits and palpable thrills GENERAL: Yes AV fistula, No calf tenderness, No clubbing and Yes edema Neuro: MENINGEAL SIGNS: Yes no meningeal signs Course Reevaluation(s): Reevaluation #1: I discussed patient with the nephrologistAnd the hospitalist. Consultations: Consultation #1: Discussed patient with the ham boner. Vital Signs: Vital signs: Vital Signs Temperature 98.1 F 02/14/23 16:53 Pulse Rate 87 02/14/23 21:52 Respiratory Rate 20 H 02/14/23 21:52 Blood Pressure 147/77 02/14/23 21:52 Pulse Oximetry 93 02/14/23 21:52 Oxygen Delivery Me thod Nasal Cannula 02/14/23 21:09 Oxygen Flow Rate 4 02/14/23 21:09 MDM - SOB/Dyspnea Medical Decision Making Patient made comfortable emergency room patient was discussed with the hospitalist and ham boner. I was able to admit patient for observation for possible dialysis in the morning. Differential Diagnosis Likely acute exacerbation of chronic obstructive airways disease, congestive heart failure, community acquired pneumonia, asthma with exacerbation and pulmonary embolism Lab Data 02/14/23 17:32 02/14/23 17:32 Labs/Radiology: Radiology Impressions Chest X-Ray 02/14/23 17:23 IMPRESSION: 1. Diffuse increased interstitial markings with peribronchial cuffing throughout both lungs is nonspecific but can be seen the setting bronchitis, pulmonary vascular congestion and viral infection. 2. No focal consolidation. Improved aeration in the right lung compared to the prior chest radiograph. 3. The heart is enlarged. Laboratory Results WBC 6.77 10^3/uL (3.29-11.43) 02/14/23 17: RBC 2.89 10^6/uL (3.85-5.65) L 02/14/23 17:32 Hgb 8.10 g/dL (11.27-16.99) L 02/14/23 17:32 Hct 24.9 % (37-53) L 02/14/23 17: MCV 86.2 fl (82-101) 02/14/23 17: MCH 28.0 pg (27-33) 02/14/23 17: MCHC 32.5 g/dL (30-55) 02/14/23 17: RDW 18.3 % (12.1-15.1) H 02/14/23 17: Plt Count 204 10^3/cmm (157-399) 02/14/23 17: MPV 9.1 fL (7.4-10.4) 02/14/23 17:32 Neut % (Auto) 91.4 % 02/14/23 17: Lymph % (Auto) 3.0 % 02/14/23 17:32 Pickett % (Auto) 4.6 % 02/14/23 17: Eos % (Auto) 0.1 % 02/14/23 17: Baso % (Auto) 0.0 % 02/14/23 17: Neut # (Auto) 6.19 10^3/uL (1.8-7.7) 02/14/23 17:32 Lymph # (Auto) 0.2 10^3/uL (0.8-4.8) L 02/14/23 17:32 Pickett # (Auto) 0.3 10^3/uL (0.2-0.9) 02/14/23 17:32 Eos # (Auto) 0.0 10^3/uL (0.0-0.8) 02/14/23 17: Baso # (Auto) 0.0 10^3/uL (0.0-0.1) 02/14/23 17:32 Nucleated RBC % (auto) 0 % 02/14/23 17: Nucleated RBCs # 0.0 /100WBC 02/14/23 17:32 Specimen Type Arterial 02/14/23 18:52 Sample Site Radial, right 02/14/23 18:52 ABG pH 7.45 (7.35-7.45) 02/14/23 18:52 ABG pCO2 51.8 mmHg (35-45) H 02/14/23 18:52 ABG pO2 70.9 mmHg (80.0-100.0) L 02/14/23 18:52 ABG HCO3 35.7 mmol/L (22-26) H 02/14/23 18:52 ABG O2 Saturation 96.3 02/14/23 18:52 ABG Base Excess 10.4 mmol/L (-2.0-2.0) H 02/14/23 18:52 Alexei Test Pos 02/14/23 18:52 A-a O2 Gradient 2.0 mmHg (5-10) L 02/14/23 18:52 Hematocrit 26.5 % (42-52) L 02/14/23 18:52 Hgb O2 Saturation 93.6 % (95-100) L 02/14/23 18:52 Carboxyhemoglobin 2.3 %THgb (0.4-20.1) 02/14/23 18:52 Methemoglobin 0.5 % (0.4-1.5) 02/14/23 18:52 Total Hemoglobin 8.7 g/dL (14-18) L 02/14/23 18:52 Sodium 137.0 mmol/L (131-143) 02/14/23 18:52 Potassium 3.8 mmol/L (3.5-5.0) 02/14/23 18:52 Glucose 112.0 mg/dL (70-115) 02/14/23 18:52 Ionized Calcium 1.2 mmol/L (1.1-1.4) 02/14/23 18:52 O2 Delivery Device Nc 02/14/23 18:52 O2 Liters/Min 4.0 % 02/14/23 18:52 Single End Sewer ID [id number] 02/14/23 18:52 Sodium 135 mmol/L (136-145) L 02/14/23 17:32 Potassium 3.7 mmol/L (3.5-5.1) 02/14/23 17:32 Chloride 91 mmol/L (98-107) L 02/14/23 17:32 Carbon Dioxide 33 mmol/L (22-29) H 02/14/23 17:32 Anion Gap 14.7 (5-19) 02/14/23 17:32 BUN 23 mg/dL (6-20) H 02/14/23 17:32 Creatinine 4.3 mg/dL (0.7-1.2) H 02/14/23 17:32 GFR Calculation 15.4 mL/min (90-130) L 02/14/23 17:32 Glucose 126 mg/dL (65-115) H 02/14/23 17:32 Calculated Osmolality 285 mOsm/kg (285-295) 02/14/23 17:32 Calcium 9.8 mg/dL (8.5-10.5) 02/14/23 17:32 Total Bilirubin 0.4 mg/dL (0.15-1.2) 02/14/23 17:32 AST 11 U/L (0-40) 02/14/23 17:32 ALT 7 U/L (0-41) 02/14/23 17:32 Alkaline Phosphatase 106 U/L (40-130) 02/14/23 17:32 NT-Pro-B Natriuret Pep > 81184 pg/mL (0-125) H 02/14/23 17:32 Total Protein 7.3 g/dL (6.6-8.7) 02/14/23 17:32 Albumin 4.0 g/dL (3.5-5.2) 02/14/23 17:32 Globulin 3.3 g/dL (1.3-4.6) 02/14/23 17:32 XR interpretation done by ED provider, pending radiology final review Discharge Plan Discharge Patient Disposition: Admitted As Inpatient Admit Provider: Lana Sawant Clinical Impression: Hypertension, Congestive heart failure, ESRD on dialysis, Generalized anxiety disorder with panic attacks Condition: Stable Coding Level of Care Code ED Video Poker Floorman for Cristi Diane
[2023-02-15] VITALS (16 sets, daily range): BP systolic 147–199; BP diastolic 85–99; PULSE 82–91; RESP 16–18; TEMP 36–37.5; O2SAT 92–98
[2023-02-15] MEDS: morphine 4 mg/mL SDV 1 mL 2 MG IVP ×3 (01:21→18:33)
[2023-02-15] MEDS: carvedilol 25 mg Tablet 37.5 MG PO ×2 (03:08→16:59)
[2023-02-15] MEDS: hyDRALAzine 50 mg Tablet 100 MG PO ×2 (03:08→17:00)
[2023-02-15] MEDS: cloNIDine 0.2 mg/24 hr Patch 1 PATCH TOPICAL (03:09)
[2023-02-15 05:13] LABS: Basophils % 0.1 %; Hematocrit 24.8 % (37-53); Lymphocytes # 0.3 10^3/uL (0.8-4.8); Lymphocytes % 4.8 %; Mean Corpuscular HGB Conc 32.3 g/dL (30-55); Mean Corpuscular Hemoglobin 27.9 pg (27-33); Mean Corpuscular Volume 86.4 fl (82-101); Mean Platelet Volume 9.6 fL (7.4-10.4); Monocytes # 0.4 10^3/uL (0.2-0.9); Monocytes % 5.7 %; Neutrophils # 6.07 10^3/uL (1.8-7.7); Neutrophils % 88.2 %; Nucleated Red Blood Cells % 0 %; Platelet Count 219 10^3/cmm (157-399); Red Blood Count 2.87 10^6/uL (3.85-5.65); Red Cell Distribution Width 18.5 % (12.1-15.1); White Blood Count 6.88 10^3/uL (3.29-11.43)
[2023-02-15 05:44] LABS: Alanine Aminotransferase 7 U/L (0-41); Albumin Level 3.8 g/dL (3.5-5.2); Alkaline Phosphatase 94 U/L (40-130); Aspartate Amino Transferase 13 U/L (0-40); Blood Urea Nitrogen 30 mg/dL (6-20); Carbon Dioxide 33 mmol/L (22-29); Chloride 88 mmol/L (98-107); Globulin 3.3 g/dL (1.3-4.6); Glomerular Filtration Rate 12.1 mL/min (90-130); Glucose 92 mg/dL (65-115); Magnesium 2.1 mg/dL (1.7-2.3); Osmolality Calculated 276 mOsm/kg (285-295); Sodium 130 mmol/L (136-145); Total Bilirubin 0.4 mg/dL (0.15-1.2); Total Protein 7.1 g/dL (6.6-8.7)
[2023-02-15] MEDS: ipratropium-albuterol 3 mL Neb INHALATION ×2 (08:02→13:06)
--- NOTE | 2023-02-15 08:43 | PC.PHAR ---
PT WOULD NOT STAY AWAKE TO GO OVER HOME MEDICATIONS- MEDS VERIFIED USING EXTERNAL MED LIST
[2023-02-15 09:02] LABS: Hepatitis B Surface AB 50.5 (11.5-1000); Hepatitis B Surface Antigen Non-Reactive (Nonreactive)
[2023-02-15] MEDS: isosorbide mononitrate ER 60 mg Tablet 240 MG PO (09:23)
[2023-02-15] MEDS: amlodipine 10 mg Tablet PO (09:23)
[2023-02-15] MEDS: losartan 50 mg Tablet 100 MG PO (09:23)
[2023-02-15] MEDS: prasugrel 10 MG Tablet PO (09:23)
[2023-02-15] MEDS: pantoprazole DR 40 mg Tablet PO (09:23)
[2023-02-15] MEDS: cyanocobalamin 1,000 mcg Tablet 1000 MCG PO (09:24)
[2023-02-15] MEDS: aspirin 81 mg EC Tablet PO (09:24)
--- NOTE | 2023-02-15 10:39 | P.CONIM_ITS ---
Providers/Reason For Consult Consulting Physician/Specialty*: kommana/neprology Reason for Consult*: ESRD Attending Physician: Caden Constantino MD Primary Care Provider: Mal Peres DO History of Present Illness History of Present Illness Mal Gibbs is a 42 year old male With past medical history of COPD, CHF end-stage renal disease on dialysis per TTS schedule presented, liver cirrhosis and ascites requiring frequent paracentesis, chronic anemia presented to the hospital with shortness of breath., Vital signs are stable in the ED lab data was significant for hemoglobin of 8.1, creatinine 4.3 chest x-ray showed vascular congestion. Patient undergoing dialysis currently. Review of Systems Narrative: OTHER ros NEGATIVE Medications/Allergies Home Medications Medication Instructions Recorded Confirmed Last Taken Type ferric citrate 210 mg iron tablet See Rx Instructions .Route .COMPLEX 11/03/21 02/15/23 02/09/23 History (Auryxia) aspirin 81 mg tablet,delayed 81 mg PO DAILY 02/21/22 02/15/23 02/09/23 History release pantoprazole 40 mg tablet,delayed 40 mg PO DAILY 02/21/22 02/15/23 02/09/23 History release DME - BIPAP #1 ea 02/25/22 02/15/23 01/16/23 Rx DME - Oxygen #1 ea 02/25/22 02/15/23 01/16/23 Rx cyanocobalamin (vitamin B-12) 1,000 mcg PO DAILY #30 caps 08/07/22 02/15/23 02/09/23 Rx 1,000 mcg capsule isosorbide mononitrate 120 mg 240 mg PO DAILY 10/01/22 02/15/23 02/09/23 History tablet,extended release 24 hr vit B,C-folic ac 800 mcg-zinc 12.5 1 tab PO DAILY 10/01/22 02/15/23 02/09/23 History mg-selen-D3 2,000 unit-vit E tablet (RenaPlex-D) losartan 50 mg tablet 100 mg PO DAILY #60 tabs 10/04/22 02/15/23 02/09/23 Rx minoxidil 2.5 mg tablet 5 mg PO BID #60 tabs 10/04/22 02/15/23 02/09/23 Rx amlodipine 10 mg tablet 10 mg PO DAILY 01/09/23 02/15/23 02/09/23 History atorvastatin 40 mg tablet 40 mg PO BEDTIME 01/09/23 02/15/23 02/09/23 History carvedilol 25 mg tablet 37.5 mg PO Q12H 01/09/23 02/15/23 02/09/23 History clonidine 0.2 mg/24 hr weekly 0.2 mg topical Q7D 01/09/23 02/15/23 02/09/23 History transdermal patch hydralazine 100 mg tablet 100 mg PO Q8H 01/09/23 02/15/23 02/09/23 History prasugrel 10 mg tablet 10 mg PO DAILY 01/09/23 02/15/23 02/09/23 History naloxone 4 mg/actuation nasal spray See Rx Instructions .Route .COMPLEX 01/12/23 02/15/23 01/16/23 History doxycycline hyclate 100 mg tablet 100 mg PO BID 02/15/23 02/15/23 Unknown History gabapentin 100 mg capsule See Rx Instructions .Route .COMPLEX 02/15/23 02/15/23 Unknown History Allergies Allergy/AdvReac Type Severity Reaction Status Date / Time spironolactone Allergy Intermediate facial Verified 02/14/23 16:59 swelling nifedipine Allergy ALGY-Swell Verified 02/14/23 16:59 Lip/Tongue/Throat Current Medications Generic Name Dose Route Start Last Admin Trade Name Nestorq PRN Reason Stop Dose Admin Albuterol/Ipratropium 3 ml 02/15/23 08:00 02/15/23 08:02 Ipratropium-Albuterol 3 Ml Neb INHALATION 3 ml Q6H.RESP ARTEM Administration Amlodipine Besylate 10 mg 02/15/23 09:00 02/15/23 09:23 Amlodipine 10 Mg Tablet PO 10 mg DAILY ARTEM Administration Aspirin 81 mg 02/15/23 09:00 02/15/23 09:24 Aspirin 81 Mg Ec Tablet PO 81 mg DAILY ARTEM Administration Carvedilol 37.5 mg 02/15/23 02:45 02/15/23 03:08 Carvedilol 25 Mg Tablet PO 37.5 mg Q12H ARTEM Administration Clonidine HCl 1 patch 02/15/23 02:45 02/15/23 03:09 Clonidine 0.2 Mg/24 Hr Patch TOPICAL 1 patch Q7D ARTEM Administration Cyanocobalamin 1,000 mcg 02/15/23 09:00 02/15/23 09:24 Cyanocobalamin 1,000 Mcg Tablet PO 1,000 mcg DAILY ARTEM Administration Hydralazine HCl 100 mg 02/15/23 02:45 02/15/23 03:08 Hydralazine 50 Mg Tablet PO 100 mg Q8H ARTEM Administration Isosorbide Mononitrate 240 mg 02/15/23 09:00 02/15/23 09:23 Isosorbide Mononitrate Er 60 Mg Tablet PO 240 mg DAILY ARTEM Administration Losartan Potassium 100 mg 02/15/23 09:00 02/15/23 09:23 Losartan 50 Mg Tablet PO 100 mg DAILY ATREM Administration Morphine Sulfate 2 mg 02/15/23 01:14 02/15/23 09:22 Morphine 4 Mg/Ml Sdv 1 Ml IVP 2 mg Q6H PRN Administration PAIN Non-Formulary Medication 1 tab 02/15/23 09:00 02/15/23 09:26 Vit B,B-Mm-Vidb-Selen-Vit D3-E [Renaplex-D] PO Not Given DAILY ARTEM Pantoprazole Sodium 40 mg 02/15/23 09:00 02/15/23 09:[address] 40 Mg Tablet PO 40 mg DAILY ARTEM Administration Prasugrel 10 mg 02/15/23 09:00 02/15/23 09:23 Prasugrel 10 Mg Tablet PO 10 mg DAILY ARTEM Administration PFSH Acute PFSH: Medical History Abdominal ascites history of intermittent paracentesis, transudative fluid; prior work up has included negative biopsy, ceruloplasmin level normal, low iron, high f erritin, normal TIBC, negative HIV, hepatitis panel negative, JESÚS/SCL 70/double-stranded DNA antibodies negative, Alpha-fetoprotein level unremarkable, nonalcoholic by history, has hepatomegaly and splenomegaly Anemia chronic kidney disease Anxiety Arteriovenous fistula for hemodialysis in place, secondary Atherosclerosis of coronary artery Stent and balloon angioplasty to proximal 1 OM branch Chronic abdominal pain Chronic respiratory failure on home oxygen and bipap Congestive heart failure preserved ejection fraction COPD (chronic obstructive pulmonary disease) COVID 05/25 Degenerative disc disease, lumbar Depression Epididymitis 06/2022 ESRD on dialysis Generalized anxiety disorder with panic attacks History of cardiovascular stress test 07/2022 at [facility] perfusion imaging probably normal, no reversible defects, small fixed defect in apical anterior wall, EF 54%, nonischemic response to stress by EKG criteria History of coronary angiogram 11/2021 - patent stent History of home oxygen therapy Hypertension uncontrolled Hypertensive emergency recurrent episodes Hypertensive urgency Inguinal hernia Low back pain Nicotine dependence, cigarettes, with other nicotine-induced disorders Patient under care of multiple providers Pulmonary embolism 09/21 CTA inconclusive for very tiny peripheral LEFT lower lobe pulmonary artery sub segmental emboli versus poor opacification. Pulmonary hypertension Umbilical hernia Urethral stricture Uses bilevel positive airway pressure (BPAP) ventilation at home Surgical History H/O hand surgery Amputation right 2&3 fingers 2017 History of adenoidectomy Stented coronary artery Family History Other Hypertension Social History Smoking and tobacco/nicotine status: current every day tobacco/nicotine user cigarettes Packs smoked per day: 1.5 Years cigarettes smoked: 21 [ Other cigarette details: started age 20, currently 0.5ppd ] Alcohol intake: never Substance/Drug Use: never Number of children: 3 Current occupational status: disabled Do you think of yourself as: Straight/Heterosexual Vitals/I&O/Wt Last Vital Signs Temp 97.6 F 02/15/23 07:43 Pulse 89 02/15/23 08:04 Resp 18 02/15/23 09:22 BP 176/94 02/15/23 09:23 Pulse Ox 95 02/15/23 09:22 O2 Del Method Nasal Cannula 02/15/23 08:04 O2 Flow Rate 4 02/15/23 08:04 02/14/23 02/15/23 02/15/23 22:59 06:59 14:59 Intake Total 120 / 120 620 / 620 Balance 120 / 120 620 / 620 Weight last 48 hrs Weight 99.79 kg Physical Exam Narrative: Awake , alert no distress no edema Data 02/15/23 04:17 02/15/23 04:17 A&P Assessment and plan (1) End-stage renal disease on hemodialysis: Plan 1. End-stage renal disease on TTS schedule as outpatient 2. Hypertension: Controlled 3. Anemia: We will order TREY 4. History of CHF 5. History of liver cirrhosis and recurrent paracentesis 6. Noncompliance, Patient evaluated using audiovisual cart. Time spent 40 minutes. Consult Attestations Medical Necessity Statement: per mediicne team Coding Level of Care Code Acute Code for Chg Fwd Diagnoses End-stage renal disease on hemodialysis N18.6; Z99.2
[2023-02-15] MEDS: epoetin alfa 1000 Unit/0.05 mL (ESRD) 20000 UNIT SUBCUT (12:58)
[2023-02-15] MEDS: heparin, porcine 1,000 unit/mL INJ 10 mL 1000 UNIT IV (12:58)
[2023-02-15] MEDS: morphine 4 mg/mL SDV 1 mL 1 MG IVP (12:59)
--- NOTE | 2023-02-15 13:19 | PM.DCS ---
Discharge Providers Date of Admission: 02/14/23 21:01 Date of Discharge: February 15, 2023 Attending Provider at Admission: Lana Sawant MD Attending Provider at Discharge: Caden Constantino MD Consults: Nephrology Primary Care Provider: Mal Peres DO Diagnoses at Discharge Discharge Diagnosis (1) Acute and chronic respiratory failure with hypoxia: Status: Acute (2) Breath shortness: Status: Acute Reason for Visit Reason for Visit: DECREASED LOC Hospital Course Hospital Course Mal Gibbs is a 42 year old male with history of COPD, ESRD on HD, and anemia of ESRD who presented with shortness of breath, found to have hypoxia. Nephrology consulted and followed. Patient admitted to observation to facilitate additional hemodialysis treatment. Nephrology consulted and patient underwent additional dialysis. Symptoms improved. Patient discharged to home in stable condition. Physical Exam Narrative: General: Patient is awake. Head: EOM intact. Cardiovascular: RRR. No gallops. No murmurs. Lungs: Breath sounds are diminish in bilateral bases. No wheezing or rales. Skin: No jaundice. No rashes. Abdomen: Normal bowel sounds, abdomen soft and nontender. Extremities: No cyanosis or clubbing. Fistual present in upper extremity. Musculoskeletal: No erythematous joints. Neurological: Moves all 4 extremities. No myoclonus. Discharge Data Studies Completed and Pending Completed Studies During Hospitalization Category Date Time Status XR chest 1V portable [id number] Stat Exams 02/14/23 17:23 Completed Radiology Impressions Chest X-Ray 02/14/23 17:23 IMPRESSION: 1. Diffuse increased interstitial markings with peribronchial cuffing throughout both lungs is nonspecific but can be seen the setting bronchitis, pulmonary vascular congestion and viral infection. 2. No focal consolidation. Improved aeration in the right lung compared to the prior chest radiograph. 3. The heart is enlarged. Laboratory Results WBC 6.88 10^3/uL (3.29-11.43) 02/15/23 04:17 RBC 2.87 10^6/uL (3.85-5.65) L 02/15/23 04:17 Hgb 8.00 g/dL (11.27-16.99) L 02/15/23 04:17 Hct 24.8 % (37-53) L 02/15/23 04:17 MCV 86.4 fl (82-101) 02/15/23 04:17 MCH 27.9 pg (27-33) 02/15/23 04:17 MCHC 32.3 g/dL (30-55) 02/15/23 04:17 RDW 18.5 % (12.1-15.1) H 02/15/23 04:17 Plt Count 219 10^3/cmm (157-399) 02/15/23 04:17 MPV 9.6 fL (7.4-10.4) 02/15/23 04:17 Neut % (Auto) 88.2 % 02/15/23 04:17 Lymph % (Auto) 4.8 % 02/15/23 04:17 [facility] % (Auto) 5.7 % 02/15/23 04:17 Eos % (Auto) 0.0 % 02/15/23 04:17 Baso % (Auto) 0.1 % 02/15/23 04:17 Neut # (Auto) 6.07 10^3/uL (1.8-7.7) 02/15/23 04:17 Lymph # (Auto) 0.3 10^3/uL (0.8-4.8) L 02/15/23 04:17 [facility] # (Auto) 0.4 10^3/uL (0.2-0.9) 02/15/23 04:17 Eos # (Auto) 0.0 10^3/uL (0.0-0.8) 02/15/23 04:17 Baso # (Auto) 0.0 10^3/uL (0.0-0.1) 02/15/23 04:17 Nucleated RBC % (auto) 0 % 02/15/23 04:17 Nucleated RBCs # 0.0 /100WBC 02/15/23 04:17 Specimen Type Arterial 02/14/23 18:52 Sample Site Radial, right 02/14/23 18:52 ABG pH 7.45 (7.35-7.45) 02/14/23 18:52 ABG pCO2 51.8 mmHg (35-45) H 02/14/23 18:52 ABG pO2 70.9 mmHg (80.0-100.0) L 02/14/23 18:52 ABG HCO3 35.7 mmol/L (22-26) H 02/14/23 18:52 ABG O2 Saturation 96.3 10/14/23 18:52 ABG Base Excess 10.4 mmol/L (-2.0-2.0) H 02/14/23 18:52 Alexei Test Pos 02/14/23 18:52 A-a O2 Gradient 2.0 mmHg (5-10) L 02/14/23 18:52 Hematocrit 26.5 % (42-52) L 02/14/23 18:52 Hgb O2 Saturation 93.6 % (95-100) L 02/14/23 18:52 Carboxyhemoglobin 2.3 %THgb (0.4-20.1) 02/14/23 18:52 Methemoglobin 0.5 % (0.4-1.5) 02/14/23 18:52 Total Hemoglobin 8.7 g/dL (14-18) L 02/14/23 18:52 Sodium 137.0 mmol/L (131-143) 02/14/23 18:52 Potassium 3.8 mmol/L (3.5-5.0) 02/14/23 18:52 Glucose 112.0 mg/dL (70-115) 02/14/23 18:52 Ionized Calcium 1.2 mmol/L (1.1-1.4) 02/14/23 18:52 O2 Delivery Device Nc 02/14/23 18:52 O2 Liters/Min 4.0 % 02/14/23 18:52 Manager Valuation ID [id number] 02/14/23 18:52 Sodium 130 mmol/L (136-145) L 02/15/23 04:17 Potassium 4.0 mmol/L (3.5-5.1) 02/15/23 04:17 Chloride 88 mmol/L (98-107) L 02/15/23 04:17 Carbon Dioxide 33 mmol/L (22-29) H 02/15/23 04:17 Anion Gap 13.0 (5-19) 02/15/23 04:17 BUN 30 mg/dL (6-20) H 02/15/23 04:17 Creatinine 5.3 mg/dL (0.7-1.2) H 02/15/23 04:17 GFR Calculation 12.1 mL/min (90-130) L 02/15/23 04:17 Glucose 92 mg/dL (65-115) 02/15/23 04:17 Calculated Osmolality 276 mOsm/kg (285-295) L 02/15/23 04:17 Calcium 10.0 mg/dL (8.5-10.5) 02/15/23 04:17 Magnesium 2.1 mg/dL (1.7-2.3) 02/15/23 04:17 Total Bilirubin 0.4 mg/dL (0.15-1.2) 02/15/23 04:17 AST 13 U/L (0-40) 02/15/23 04:17 ALT 7 U/L (0-41) 02/15/23 04:17 Alkaline Phosphatase 94 U/L (40-130) 02/15/23 04:17 NT-Pro-B Natriuret Pep > 20534 pg/mL (0-125) H 02/14/23 17:32 Total Protein 7.1 g/dL (6.6-8.7) 02/15/23 04:17 Albumin 3.8 g/dL (3.5-5.2) 02/15/23 04:17 Globulin 3.3 g/dL (1.3-4.6) 02/15/23 04:17 Hep Bs Antigen Non-reactive (Nonreactive) 02/15/23 04:17 Hep Bs Antibody 50.5 (11.5-1000) 02/15/23 04:17 Vitals Last Vital Signs Temp 98.1 F 02/15/23 12:00 Pulse 82 02/15/23 13:09 Resp 18 02/15/23 13:09 BP 185/99 02/15/23 12:00 Pulse Ox 98 02/15/23 13:09 O2 Del Method Nasal Cannula 02/15/23 13:09 O2 Flow Rate 4 02/15/23 13:09 Discharge Plan Discharge Patient Disposition: Home Condition: Stable Prescriptions: Continued (DME) DME - BIPAP See Rx Instructions .Route .MEDSUPPLY Qty: 1 0RF Rx Instructions: Inspiratory Pressure: 16mmHg Expiratory Pressure: 8 mmHg Will need oxygen bled in to the machine to maintain sats >/= 90%. (DME) DME - Oxygen See Rx Instructions .Route .MEDSUPPLY Qty: 1 0RF Rx Instructions: Supplemental Oxygen bled into BIPAP at 2-3L to maintain oxygen sats at >/= 90%. Auryxia 210 mg iron Tablet See Rx Instructions .ROUTE .COMPLEX Rx Instructions: 420 mg (2 tabs) orally three times a day and 210mg (1 tab) with snacks aspirin 81 mg tablet,delayed release (DR/EC) 81 mg PO DAILY pantoprazole 40 mg tablet,delayed release (DR/EC) 40 mg PO DAILY isosorbide mononitrate 120 mg tablet extended release 24 hr 240 mg PO DAILY RenaPlex-D 800 mcg-12.5 mg -2,000 unit tablet 1 tab PO DAILY losartan 50 mg tablet 100 mg PO DAILY Qty: 60 0RF minoxidil 2.5 mg Tablet 5 mg PO BID Qty: 60 0RF carvedilol 25 mg tablet 37.5 mg PO Q12H clonidine 0.2 mg/24 hr patch weekly 0.2 mg topical Q7D atorvastatin 40 mg tablet 40 mg PO BEDTIME amlodipine 10 mg tablet 10 mg PO DAILY hydralazine 100 mg tablet 100 mg PO Q8H prasugrel 10 mg tablet 10 mg PO DAILY cyanocobalamin (vitamin B-12) 1,000 mcg capsule 1,000 mcg PO DAILY Qty: 30 0RF naloxone 4 mg/actuation spray,non-aerosol See Rx Instructions .ROUTE .COMPLEX Rx Instructions: ADMINISTER 1 SPRAY ( 4 MG ) IN ONE NOSTRIL ( ALTERNATE NOSTRIL WITH EACH DOSE ) EVERY 5 MINUTES NEEDED FOR OPIOID OVERDOSE SYMPTOMS gabapentin 100 mg capsule See Rx Instructions .ROUTE .COMPLEX Rx Instructions: 100 mg orally as directed doxycycline hyclate 100 mg tablet 100 mg PO BID Discharge Orders: Discharge Order (Routine); Ordered 02/15/23 Ordered By: Caden Constantino Referrals: Family Practice [Provider Group] - 4-7 days (Please call and make an appointment with your primary care provider.) Discharge Diet: Usual diet and Low Salt Discharge Activity: Increase activity as tolerated Patient Instructions: Chronic Hypertension (DC), End Stage Kidney Disease (DC), Shortness of Breath (DC), Opioid Safety Activity Restrictions/Additional Instructions: 1. Continue regular dialysis schedule. 2. Take medications as prescribed. 3. Follow up with PCP. Discharge Attestations Time Spent in Discharge Care*: greater than 30 min Status at Discharge: Cognitive status at discharge: cognitively intact, Behavioral status at discharge: cooperative, Quality Metrics Clinical Quality Measures [ No reported AMI, CVA or VTE this stay] Coding Level of Care Code Acute Code for Chg Fwd Diagnoses Acute and chronic respiratory failure with hypoxia J96.21 Breath shortness R06.02
--- NOTE | 2023-02-15 16:19 | PC.NURSE ---
Patient returned from Dialysis at this time. Makayla states that that he had the 3 liters taken off of him and did well.
--- NOTE | 2023-02-15 16:49 | PC.NURSE ---
Notified patient's mother at this time per his request that he will be discharged.
--- NOTE | 2023-02-15 19:05 | PC.NURSE ---
Patient resting comfortably in bed on left side, eyes closed, in no distress.
--- NOTE | 2023-02-15 19:52 | PC.NURSE ---
Patient sitting up in bed, IV removed and all belongings gathered. Patient assisted out with all belongings alongside family member via wheelchair.
== END 2023-02-15 19:50 | disposition home or self-care (01) ==
LOC: ER 21:00 → MEDSURG 21:02
PROVIDERS: Hospitalist; Admitting Provider Internal Medicine; Emergency Provider Family Medicine; PCP Family Medicine; Visit Provider Internal Medicine
DX: J96.21 Acute and chronic respiratory failure with hypoxia (principal); J44.9 Chronic obstructive pulmonary disease, unspecified; M18.9 Osteoarthritis of first carpometacarpal joint, unspecified; I12.0 Hypertensive chronic kidney disease with stage 5 chronic kidney disease or end stage renal disease; N18.6 End stage renal disease; D63.1 Anemia in chronic kidney disease; I50.9 Heart failure, unspecified; Z99.2 Dependence on renal dialysis; K74.60 Unspecified cirrhosis of liver; F41.9 Anxiety disorder, unspecified; Z86.16 Personal history of COVID-19; F17.210 Nicotine dependence, cigarettes, uncomplicated; Z91.199 Patient's noncompliance with other medical treatment and regimen due to unspecified reason
CPT/HCPCS: 36415; 36600; 71045; 80051; 80053; 82330; 82805; 83735; 83880; 85025; 86706; 87340; 90935; 94640; 94664; 96372; 96374; 96376; 99285; G0378; J1644; J2270; Q3014; Q4081

== ENCOUNTER → 2023-02-25 13:09 | Day surgery (SDC) | payer MEDICARE, MEDICAID, SELFPAY ==
[2023-02-25 13:20] VITALS: BP 131/60; PULSE 70; RESP 18; TEMP 36.8; O2SAT 90; BMI 26.4
--- NOTE | 2023-02-25 13:25 | US_ITS ---
WS: [id number] INDICATION: Paracentesis ascites TECHNIQUE: Four-quadrant ultrasound FINDINGS: Four-quadrant ultrasound demonstrates only mild ascites. Paracentesis not performed. IMPRESSION: See above
--- NOTE | 2023-02-25 14:06 | PC.NURSE ---
Procedure canceled upon evaluation of ultrasound, not enough fluid to proceed with procedure, per Grabiel Camacho, US tech.
== END ==
PROVIDERS: Radiology Neuroradiology; PCP Family Medicine; Visit Provider Internal Medicine Nephrology
PROC: (CPT 49082; principal; 2023-02-25 13:30)
DX: R18.8 Other ascites (principal)
CPT/HCPCS: 76705

== ENCOUNTER 2023-03-11 12:27 | Day surgery (SDC) | payer MEDICARE, MEDICAID, SELFPAY ==
--- NOTE | 2023-03-11 12:33 | US_ITS ---
WS: [email or web address] ULTRASOUND ABDOMEN LIMITED CLINICAL INFORMATION: Ascites COMPARISON: None. FINDINGS: Ascites: Four-quadrant ultrasound for paracentesis planning. Only mild ascites. Insufficient fluid fo r paracentesis today. IMPRESSION: See above
[2023-03-11 12:43] VITALS: BP 144/78; PULSE 73; RESP 18; TEMP 36.5; O2SAT 97
--- NOTE | 2023-03-11 13:12 | SUR.OPER ---
Pt to GI lab for paracentesis. Not enough fluid to drain per radiologist. Procedure aborted.
== END 2023-03-11 13:00 | disposition home or self-care (01) ==
PROVIDERS: Radiology Neuroradiology; PCP Family Medicine; Visit Provider Nurse Practitioner Family
DX: R18.8 Other ascites (principal)
CPT/HCPCS: 76705

== ENCOUNTER → 2023-03-25 12:43 | Day surgery (SDC) | payer MEDICARE, MEDICAID, SELFPAY ==
--- NOTE | 2023-03-25 12:47 | US_ITS ---
WS: [email or web address] ULTRASOUND-GUIDED PARACENTESIS CLINICAL INFORMATION: cirrhosis COMPARISON: None. Procedure Informed consent: The risks, benefits, and alternatives of the procedure were discussed with the mariah ent. Verbal and written consent was obtained. Timeout: A timeout was performed to confirm the correct patient, procedure, and site. Preparation: A suitable skin site was identified. The patient was prepped and draped in usual sterile fashion. Lidocaine 1% was used for local anesthesia. Catheter: 4 [place] One-step Yueh catheter. Side: LEFT lower quadrant. Fluid Volume: 2500 ml Color: Clear yellow DISPOSITION: Discarded safely. Complications: None. Patient disposition: Discharged from the department in stable condition. IMPRESSION: Uncomplicated ultrasound-guided paracentesis. Removal of 2500 cc
[2023-03-25 12:48] VITALS: BP 179/99; PULSE 80; RESP 20; TEMP 36.9; O2SAT 97
[2023-03-25] MEDS: albumin 50 G/200 ML BAG 60 G IV (13:52)
== END ==
PROVIDERS: Radiology Neuroradiology; PCP Family Medicine; Visit Provider Nurse Practitioner Family
PROC: (CPT 49082; principal; 2023-03-25 13:30)
DX: K74.60 Unspecified cirrhosis of liver (principal)
CPT/HCPCS: 49083; P9046

== ENCOUNTER 2023-04-10 01:57 | Emergency (ER) | payer MEDICARE, MEDICAID, SELFPAY ==
[2023-04-10 02:05] VITALS: BP 167/82; PULSE 102; RESP 18; TEMP 36.6; O2SAT 99; BMI 25.7
[2023-04-10 02:07] VITALS: PULSE 83; O2SAT 96
--- NOTE | 2023-04-10 03:23 | ED_ITS ---
HPI - Abdominal Pain 2 General: Chief Complaint: Abdominal Pain Stated Complaint: abdomen pain Time Seen by Provider: 04/10/23 01:58 History of Present Illness: Presents to the ER with complaints of having lower abdominal pain around his hernias. Patient had dialysis yesterday. Patient's states he pain woke him up about 1:00 this morning. Patient has had this pain before. Patient has no allergies to pain medicines. Patient denies any nausea vomiting diarrhea constipation fevers chills etc. PFSH ED 2 PFSH: Medical History Acute and chronic respiratory failure with hypoxia Patient under care of multiple providers Hypertensive urgency History of cardiovascular stress test 07/2022 at [facility] perfusion imaging probably normal, no reversible defects, small fixed defect in apical anterior wall, EF 54%, nonischemic response to stress by EKG criteria Depression Epididymitis 06/2022 Pulmonary hypertension Uses bilevel positive airway pressure (BPAP) ventilation at home Umbilical hernia History of home oxygen therapy History of coronary angiogram 11/2021 - patent stent Inguinal hernia Anxiety Chronic respiratory failure on home oxygen and bipap Low back pain Nicotine dependence, cigarettes, with other nicotine-induced disorders Generalized anxiety disorder with panic attacks ESRD on dialysis Atherosclerosis of coronary artery Stent and balloon angioplasty to proximal 1 OM branch Chronic abdominal pain COVID 05/25 Hypertensive emergency recurrent episodes Urethral stricture Abdominal ascites history of intermittent paracentesis, transudative fluid; prior work up has included negative biopsy, ceruloplasmin level normal, low iron, high ferritin, normal TIBC, negative HIV, hepatitis panel negative, JESÚS/SCL 70/double-stranded DNA antibodies negative, Alpha-fetoprotein level unremarkable, nonalcoholic by history, has hepatomegaly and splenomegaly Pulmonary embolism 09/21 CTA inconclusive for very tiny peripheral LEFT lower lobe pulmonary artery sub segmental emboli versus poor opacification. Anemia chronic kidney disease Congestive heart failure preserved ejection fraction COPD (chronic obstructive pulmonary disease) Arteriovenous fistula for hemodialysis in place, secondary Degenerative disc disease, lumbar Hypertension uncontrolled Surgical History Stented coronary artery H/O hand surgery Amputation right 2&3 fingers 2017 History of adenoidectomy Family History Other Hypertension Social History Smoking and tobacco/nicotine status: current every day tobacco/nicotine user cigarettes Packs smoked per day: 1.5 Years cigarettes smoked: 21 [ Other cigarette details: started age 20, currently 0.5ppd ] Alcohol intake: never Substance/Drug Use: never Number of children: 3 Current occupational status: disabled Do you think of yourself as: Straight/Heterosexual Physical Exam 2 Const: COMMON NORMALS: no acute distress, average body habitus, patient oriented x3, no limitations, healthy appearing, alert and well nourished HENMT: COMMON NORMALS: normocephalic, atraumatic, hearing grossly normal bilaterally, external ears normal, Normal external nose present, moist oral mucous membranes and oropharynx normal HEAD & SCALP: normocephalic and atraumatic NOSE: Normal external nose present EXTERNAL EAR: Yes external ears normal Neck/C-Spine: COMMON NORMALS: no JVD Chest: COMMONS NORMALS: normal inspection of the chest and normal palpation of entire chest wall Resp: COMMON NORMALS: normal respiratory effort, No retractions, No use of accessory muscles and clear to auscultation bilaterally AUSCULTATION: clear to auscultation bilaterally Cardio: COMMON NORMALS: no JVD, regular rate, regular rhythm, S1 normal heart sound present, S2 normal heart sound present, No gallops present (Cardio), No clicks present (Cardio), No murmurs present (Cardio) and No rub (Cardio) R ATE: regular rate RHYTHM: regular rhythm HEART SOUNDS: S1 normal heart sound present and S2 normal heart sound present GI: COMMON NORMALS: Normal to inspection, nondistended, normoactive bowel sounds present, Soft to palpation, No hepatosplenomegaly present and no masses; negative for non-tender PALPATION: Yes Soft to palpation and Yes No hepatosplenomegaly present Neuro: COMMON NORMALS: patient oriented x3 SENSORIUM/ORIENTATION: Yes alert Course 2 Vital Signs: Vital signs: Vital Signs Temperature 98 F 04/10/23 02:05 Pulse Rate 74 04/10/23 04:02 Respiratory Rate 17 04/10/23 03:30 Blood Pressure 167/97 04/10/23 04:02 Pulse Oximetry 93 04/10/23 04:02 Oxygen Delivery Me thod Room Air 04/10/23 04:02 MDM - Abdominal Pain Medical Decision Making Patient presents to the ER with lower abdominal pain. Patient does have an inguinal hernia that he knows about. Patient had blood work which revealed he is mildly anemic at hemoglobin 9.2, he is in end-stage renal disease on dialysis with a BUN/creatinine of 19 and 4.7. Magnesium was 2.0. Patient was given a total of 8 mg morphine and 4 mg Zofran which relieved his pain and nausea. Patient was discharged home and was instructed to follow-up with his family practice physician within the next 7 to 10 days for further evaluation and treatment. Differential Diagnosis Likely abdominal pain; Unlikely acute appendicitis, calculus of kidney, constipation, diverticulitis, endometriosis, gastroenteritis, pancreatitis or small bowel obstruction Medical Records I reviewed the patient's medical records. Lab Data I reviewed the patient's lab results. 04/10/23 03:30 04/10/23 03:30 Labs/Radiology: Laboratory Results WBC 4.78 10^3/uL (3.29-11.43) 04/10/23 03:30 RBC 3.43 10^6/uL (3.85-5.65) L 04/10/23 03:30 Hgb 9.20 g/dL (11.27-16.99) L 04/10/23 03:30 Hct 28.8 % (37-53) L 04/10/23 03:30 MCV 84.0 fl (82-101) 04/10/23 03:30 MCH 26.8 pg (27-33) L 04/10/23 03:30 MCHC 31.9 g/dL (30-55) 04/10/23 03:30 RDW 18.2 % (12.1-15.1) H 04/10/23 03:30 Plt Count 182 10^3/cmm (157-399) 04/10/23 03:30 MPV 9.4 fL (7.4-10.4) 04/10/23 03:30 Neut % (Auto) 69.0 % 04/10/23 03:30 Lymph % (Auto) 11.7 % 04/10/23 03:30 [place] % (Auto) 9.2 % 04/10/23 03:30 Eos % (Auto) 8.6 % 04/10/23 03:30 Baso % (Auto) 1.3 % 04/10/23 03:30 Neut # (Auto) 3.30 10^3/uL (1.8-7.7) 04/10/23 03:30 Lymph # (Auto) 0.6 10^3/uL (0.8-4.8) L 04/10/23 03:30 [place] # (Auto) 0.4 10^3/uL (0.2-0.9) 04/10/23 03:30 Eos # (Auto) 0.4 10^3/uL (0.0-0.8) 04/10/23 03:30 Baso # (Auto) 0.1 10^3/uL (0.0-0.1) 04/10/23 03:30 Nucleated RBC % (auto) 0 % 04/10/23 03:30 Nucleated RBCs # 0.0 /100WBC 04/10/23 03:30 Sodium 132 mmol/L (136-145) L 04/10/23 03:30 Potassium 4.0 mmol/L (3.5-5.1) 04/10/23 03:30 Chloride 89 mmol/L (98-107) L 04/10/23 03:30 Carbon Dioxide 33 mmol/L (22-29) H 04/10/23 03:30 Anion Gap 14.0 (5-19) 04/10/23 03:30 BUN 19 mg/dL (6-20) 04/10/23 03:30 Creatinine 4.7 mg/dL (0.7-1.2) H 04/10/23 03:30 GFR Calculation 13.9 mL/min (90-130) L 04/10/23 03:30 Glucose 99 mg/dL (65-115) 04/10/23 03:30 Calculated Osmolality 276 mOsm/kg (285-295) L 04/10/23 03:30 Calcium 10.9 mg/dL (8.5-10.5) H 04/10/23 03:30 Magnesium 2.0 mg/dL (1.7-2.3) 04/10/23 03:30 Total Bilirubin 0.7 mg/dL (0.15-1.2) 04/10/23 03:30 AST 17 U/L (0-40) 04/10/23 03:30 ALT 9 U/L (0-41) 04/10/23 03:30 Alkaline Phosphatase 136 U/L (40-130) H 04/10/23 03:30 Total Protein 8.3 g/dL (6.6-8.7) 04/10/23 03:30 Albumin 3.9 g/dL (3.5-5.2) 04/10/23 03:30 Globulin 4.4 g/dL (1.3-4.6) 04/10/23 03:30 All radiology interpretation(s) finalized by discharge Discharge Plan Discharge Patient Disposition: Home Clinical Impression: Abdominal pain Qualifiers: Abdominal location: lower abdomen, unspecified Qualified Code(s): R10.30 - Lower abdominal pain, unspecified Condition: Stable Prescriptions: No Action (DME) DME - BIPAP See Rx Instructions .Route .MEDSUPPLY Qty: 1 0RF Rx Instructions: Inspiratory Pressure: 16mmHg Expiratory Pressure: 8 mmHg Will need oxygen bled in to the machine to maintain sats >/= 90%. (DME) DME - Oxygen See Rx Instructions .Route .MEDSUPPLY Qty: 1 0RF Rx Instructions: Supplemental Oxygen bled into BIPAP at 2-3L to maintain oxygen sats at >/= 90%. Auryxia 210 mg iron Tablet See Rx Instructions .ROUTE .COMPLEX Rx Instructions: 420 mg (2 tabs) orally three times a day and 210mg (1 tab) with snacks aspirin 81 mg tablet,delayed release (DR/EC) 81 mg PO DAILY pantoprazole 40 mg tablet,delayed release (DR/EC) 40 mg PO DAILY isosorbide mononitrate 120 mg tablet extended release 24 hr 240 mg PO DAILY RenaPlex-D 800 mcg-12.5 mg -2,000 unit tablet 1 tab PO DAILY losartan 50 mg tablet 100 mg PO DAILY Qty: 60 0RF minoxidil 2.5 mg Tablet 5 mg PO BID Qty: 60 0RF carvedilol 25 mg tablet 37.5 mg PO Q12H clonidine 0.2 mg/24 hr patch weekly 0.2 mg topical Q7D atorvastatin 40 mg tablet 40 mg PO BEDTIME amlodipine 10 mg tablet 10 mg PO DAILY hydralazine 100 mg tablet 100 mg PO Q8H prasugrel 10 mg tablet 10 mg PO DAILY cyanocobalamin (vitamin B-12) 1,000 mcg capsule 1,000 mcg PO DAILY Qty: 30 0RF naloxone 4 mg/actuation spray,non-aerosol See Rx Instructions .ROUTE .COMPLEX Rx Instructions: ADMINISTER 1 SPRAY ( 4 MG ) IN ONE NOSTRIL ( ALTERNATE NOSTRIL WITH EACH DOSE ) EVERY 5 MINUTES NEEDED FOR OPIOID OVERDOSE SYMPTOMS gabapentin 100 mg capsule See Rx Instructions .ROUTE .COMPLEX Rx Instructions: 100 mg orally as directed doxycycline hyclate 100 mg tablet 100 mg PO BID Discharge Orders: Discharge ED (Routine); Ordered 04/10/23 Ordered By: Colton Child Referrals: Mal Junior [Primary Care Provider] - 1 week Patient Instructions: Abdominal Pain (ED) Activity Restrictions/Additional Instructions: Please follow-up with your family practice physician within next 7 to 10 days for further evaluation and treatment. If your pain worsens please feel free to return to the ER. Coding Level of Care Code ED Professor Of Historical Theology for Cristi Diane
[2023-04-10 03:30] VITALS: BP 152/89; PULSE 79; RESP 17; O2SAT 92
[2023-04-10 03:36] LABS: Basophils # 0.1 10^3/uL (0.0-0.1); Basophils % 1.3 %; Eosinophils # 0.4 10^3/uL (0.0-0.8); Eosinophils % 8.6 %; Hematocrit 28.8 % (37-53); Lymphocytes # 0.6 10^3/uL (0.8-4.8); Lymphocytes % 11.7 %; Mean Corpuscular HGB Conc 31.9 g/dL (30-55); Mean Corpuscular Hemoglobin 26.8 pg (27-33); Mean Platelet Volume 9.4 fL (7.4-10.4); Monocytes # 0.4 10^3/uL (0.2-0.9); Monocytes % 9.2 %; Nucleated Red Blood Cells % 0 %; Platelet Count 182 10^3/cmm (157-399); Red Blood Count 3.43 10^6/uL (3.85-5.65); Red Cell Distribution Width 18.2 % (12.1-15.1); White Blood Count 4.78 10^3/uL (3.29-11.43)
[2023-04-10 03:51] LABS: Alanine Aminotransferase 9 U/L (0-41); Albumin Level 3.9 g/dL (3.5-5.2); Alkaline Phosphatase 136 U/L (40-130); Aspartate Amino Transferase 17 U/L (0-40); Blood Urea Nitrogen 19 mg/dL (6-20); Calcium 10.9 mg/dL (8.5-10.5); Carbon Dioxide 33 mmol/L (22-29); Chloride 89 mmol/L (98-107); Globulin 4.4 g/dL (1.3-4.6); Glomerular Filtration Rate 13.9 mL/min (90-130); Glucose 99 mg/dL (65-115); Osmolality Calculated 276 mOsm/kg (285-295); Sodium 132 mmol/L (136-145); Total Bilirubin 0.7 mg/dL (0.15-1.2); Total Protein 8.3 g/dL (6.6-8.7)
[2023-04-10] MEDS: ketorolac 30 mg/mL INJ IVP (03:56)
[2023-04-10] MEDS: ondansetron 2 mg/ML SDV 2 mL 4 MG IVP (03:56)
[2023-04-10 04:02] VITALS: BP 167/97; PULSE 74; O2SAT 93
[2023-04-10] MEDS: morphine 4 mg/mL SDV 1 mL IVP ×2 (04:22→05:08)
[2023-04-10 05:14] VITALS: PULSE 105; RESP 20; O2SAT 92
== END 2023-04-10 05:16 | disposition home or self-care (01) ==
PROVIDERS: Emergency Provider Emergency Medicine; PCP Family Medicine
DX: F17.210 Nicotine dependence, cigarettes, uncomplicated; K40.90 Unilateral inguinal hernia, without obstruction or gangrene, not specified as recurrent; N18.6 End stage renal disease; Z99.2 Dependence on renal dialysis; D63.1 Anemia in chronic kidney disease; R10.30 Lower abdominal pain, unspecified
CPT/HCPCS: 80053; 83735; 85025; 96374; 96375; 96376; 99284; J1885; J2270; J2405

== ENCOUNTER 2023-04-11 23:37 | Emergency (ER) | payer MEDICARE, MEDICAID, SELFPAY ==
[2023-04-11 23:54] VITALS: BP 181/97; PULSE 77; RESP 17; TEMP 36.7; O2SAT 97; BMI 25.0
--- NOTE | 2023-04-12 01:40 | CTR_ITS ---
PROCEDURE INFORMATION: Exam: CT Abdomen And Pelvis With Contrast Exam date and time: 04/12/2023 2:05 AM Age: 42 years old Clinical indication: Abdominal pain; Localized; Lower; Prior surgery; Surgery date: 6+ months; Surgery type: Coronary stents; Patient HX: C/O RT inguinal groin pain. History of inguinal hernia. End stage renal disease with dialysis. ; Additional info: R inguinal hernia pain TECHNIQUE: Imaging protocol: Computed tomography of the abdomen and pelvis with contrast. Radiation optimization: All CT scans at this facility use at least one of these dose optimization techniques: automated exposure control; mA and/or kV adjustment per patient size (includes targeted exams where dose is matched to clinical indication); or iterative reconstruction. Contrast material: OMNI 350; Contrast volume: 100 ml; Contrast route: INTRAVENOUS (IV); REPORTING DATA: Count of CT and Cardiac NM exams in prior 12 months: This patient has received 5 known CTs and 0 known cardiac nuclear medicine studies in the 12 months prior to the current study. COMPARISON: CT abdomen pelvis wo con [id number] 10/02/2022 12:14 AM RADIATION DOSE METRICS: Total DLP (mGy-cm): 613.8 FINDINGS: Heart: Cardiomegaly. Liver: Liver is enlarged and diffusely heterogeneous with nodularity, most consistent with cirrhosis. Gallbladder and bile ducts: No calcified stones. No biliary ductal dilation. No pericholecystic fluid. Pancreas: Unremarkable. No duct dilation. Spleen: Splenomegaly measuring up to 15.7 cm. Adrenal glands: Unremarkable. Kidneys and ureters: Bilateral renal atrophy. Stomach and bowel: No bowel obstruction. Scattered colonic diverticula without CT evidence of acute diverticulitis. Appendix: No evidence of appendicitis. Intraperitoneal space: Moderate-large volume ascites. Vasculature: Moderate aortoiliac atherosclerotic calcifications. No aortic aneurysm. Possible filling defect in a right lower lobe subsegmental pulmonary artery branch, series 3, image 1. Lymph nodes: Scattered mildly enlarged retroperitoneal and pelvic lymph nodes, slightly increased from prior, with a architectural representative right pelvic sidewall node measuring 10 mm in short axis (series 3, image 67), previously 7 mm, and a left periaortic node measuring 9 mm in short axis (series 3, image 46), previously 7 mm. Bilateral inguinal adenopathy, also increased in prior, with nodes demonstrating ill-defined central hypoattenuation, which could represent central cystic change or necrosis. A architectural representative right inguinal node measures 21 mm in short axis, series 3, image 90, previously 17 mm. Urinary bladder: Bladder is mostly decompressed and not well evaluated. Reproductive: Unremarkable as visualized. Bones/joints: No acute fracture. Chronic bilateral L5 pars defects with grade 1 anterolisthesis of L5 on S1. Soft tissues: Small fat and fluid containing umbilical hernia, slightly increased in size from prior. Partially imaged large fluid containing right inguinal hernia, increased in size compared to prior. CT/CT abdomen pelvis w con* [id number] IMPRESSION: 1. Possible filling defect in a right lower lobe subsegmental pulmonary artery branch. Consider dedicated CT PE study for further evaluation. 2. Partially imaged large fluid containing right inguinal hernia, increased in size compared to prior. Slightly increased size of small fluid containing periumbilical hernia. 3. Bilateral inguinal adenopathy, slowly increasing in size since 07/27/2022 exam. Somewhat nonspecific, but raises suspicion for malignancy, recommend ultrasound-guided biopsy. Scattered mildly enlarged retroperitoneal and pelvic lymph nodes are also slightly increased in size compared to prior. 4. Cirrhotic morphology of the liver with sequela of portal hypertension, including splenomegaly, and moderate-large volume ascites. 5. Cardiomegaly.
[2023-04-12] MEDS: ondansetron 2 mg/ML SDV 2 mL 4 MG IVP (01:58)
[2023-04-12] MEDS: morphine 4 mg/mL SDV 1 mL IVP ×2 (02:00→05:09)
[2023-04-12] MEDS: iohexol 350 mg/mL 500 mL Btl (per mL) IV (02:07)
[2023-04-12 03:17] LABS: Basophils # 0.1 10^3/uL (0.0-0.1); Basophils % 1.7 %; Eosinophils # 0.4 10^3/uL (0.0-0.8); Eosinophils % 9.4 %; Hematocrit 25.8 % (37-53); Lymphocytes # 0.5 10^3/uL (0.8-4.8); Lymphocytes % 11.1 %; Mean Corpuscular HGB Conc 32.2 g/dL (30-55); Mean Corpuscular Hemoglobin 26.8 pg (27-33); Mean Corpuscular Volume 83.2 fl (82-101); Mean Platelet Volume 9.5 fL (7.4-10.4); Monocytes # 0.4 10^3/uL (0.2-0.9); Monocytes % 7.7 %; Neutrophils # 3.28 10^3/uL (1.8-7.7); Neutrophils % 69.9 %; Nucleated Red Blood Cells % 0 %; Platelet Count 154 10^3/cmm (157-399); Red Cell Distribution Width 17.8 % (12.1-15.1); White Blood Count 4.69 10^3/uL (3.29-11.43)
[2023-04-12 03:40] LABS: Lactic Sepsis W/Reflex 0.5 mmol/L (0.5-2.2)
[2023-04-12 03:47] LABS: Alanine Aminotransferase 7 U/L (0-41); Albumin Level 3.8 g/dL (3.5-5.2); Alkaline Phosphatase 130 U/L (40-130); Anion Gap 12.8 (5-19); Aspartate Amino Transferase 15 U/L (0-40); Blood Urea Nitrogen 18 mg/dL (6-20); C Reactive Protein 47.1 mg/L (0.0-4.9); Calcium 10.2 mg/dL (8.5-10.5); Carbon Dioxide 32 mmol/L (22-29); Chloride 87 mmol/L (98-107); Globulin 3.5 g/dL (1.3-4.6); Glomerular Filtration Rate 13.9 mL/min (90-130); Glucose 77 mg/dL (65-115); Osmolality Calculated 267 mOsm/kg (285-295); Potassium 3.8 mmol/L (3.5-5.1); Sodium 128 mmol/L (136-145); Total Bilirubin 0.6 mg/dL (0.15-1.2); Total Protein 7.3 g/dL (6.6-8.7)
[2023-04-12 05:09] VITALS: RESP 18
[2023-04-12 05:39] VITALS: BP 177/113; PULSE 81; O2SAT 97
--- NOTE | 2023-04-12 06:28 | W.ED.ABDPA2 ---
HPI - Abdominal Pain General: Chief Complaint: Abdominal Pain Stated Complaint: ABD Pain\Groin Pain Time Seen by Provider: 04/12/23 00:47 History of Present Illness: 42-year-old male well-known to the emergency department service. He presents with right inguinal/groin pain for the past couple of days. He says that he has a hernia in this area, and the swelling is worse to the area, causing more pain. The pain started at dialysis earlier in the day. No fever. No vomiting. No blood in the stool. Associated Symptoms: Reports nausea; Denies hematemesis and vomiting Review of Systems Card: Denies: chest pain Resp: Reports: dyspnea; Denies: productive cough or non-productive cough GI: Reports: abdominal pain and nausea; Denies: vomiting or hematemesis PFSH ED PFSH: Medical History Acute and chronic respiratory failure with hypoxia Patient under care of multiple providers Hypertensive urgency History of cardiovascular stress test 07/2022 at [facility] perfusion imaging probably normal, no reversible defects, small fixed defect in apical anterior wall, EF 54%, nonischemic response to stress by EKG criteria Depression Epididymitis 06/2022 Pulmonary hypertension Uses bilevel positive airway pressure (BPAP) ventilation at home Umbilical hernia History of home oxygen therapy History of coronary angiogram 11/2021 - patent stent Inguinal hernia Anxiety Chronic respiratory failure on home oxygen and bipap Low back pain Nicotine dependence, cigarettes, with other nicotine-induced disorders Generalized anxiety disorder with panic attacks ESRD on dialysis Atherosclerosis of coronary artery Stent and balloon angioplasty to proximal 1 OM branch Chronic abdominal pain COVID 05/25 Hypertensive emergency recurrent episodes Urethral stricture Abdominal ascites history of intermittent paracentesis, transudative fluid; prior work up has included negative biopsy, ceruloplasmin level normal, low iron, high ferritin, normal TIBC, negative HIV, hepatitis panel negative, JESÚS/SCL 70/double-stranded DNA antibodies negative, Alpha-fetoprotein level unremarkable, nonalcoholic by history, has hepatomegaly and splenomegaly Pulmonary embolism 09/21 CTA inconclusive for very tiny peripheral LEFT lower lobe pulmonary artery sub segmental emboli versus poor opacification. Anemia chronic kidney disease Congestive heart failure preserved ejection fraction COPD (chronic obstructive pulmonary disease) Arteriovenous fistula for hemodialysis in place, secondary Degenerative disc disease, lumbar Hypertension uncontrolled Surgical History Stented coronary artery H/O hand surgery Amputation right 2&3 fingers 2017 History of adenoidectomy Family History Other Hypertension Social History Smoking and tobacco/nicotine status: current every day tobacco/nicotine user cigarettes Packs smoked per day: 1.5 Years cigarettes smoked: 21 [ Other cigarette details: started age 20, currently 0.5ppd ] Alcohol intake: never Substance/Drug Use: never Number of children: 3 Current occupational status: disabled Do you think of yourself as: Straight/Heterosexual Physical Exam Const: GENERAL APPEARANCE: cooperative; not ill appearing and not frail appearing HENMT: COMMON NORMALS: normocephalic, atraumatic and Normal external nose present HEAD & SCALP: normocephalic and atraumatic FACE & SINUS: normal facial exam and face symmetric NOSE: Normal external nose present Eye: COMMON NORMALS: Equal, round and reactive pupils present and EOMs intact bilaterally PUPIL: Yes Equal, round and reactive pupils present Neck/C-Spine: GENERAL: Yes trachea midline Chest: CHEST: Yes Symmetrical chest wall rise Resp: COMMON NORMALS: normal respiratory effort, No retractions, No use of accessory muscles and clear to auscultation bilaterally AUSCULTATION: clear to auscultation bilaterally Cardio: COMMON NORMALS: regular rate and regular rhythm RATE: regular rate RHYTHM: regular rhythm GI: INSPECTION: Yes Abdominal wall edema and Yes abdominal distension PALPATION: No Guarding due to palpation present (GI) : COMMON NORMALS: Yes no CVA tenderness BLADDER/KIDNEY EXAM: Yes no CVA tenderness PENIS: normal penis SCROTUM: Yes scrotal swelling (Impressive) Scrotal swelling laterality: right Scrotal swelling consistent with: hydrocele Back/Pelvis: COMMON NORMALS: no CVA tenderness Extremity: COMMON NORMALS: no pedal edema Neuro: BUCK COMA SCALE: document GCS findings Martin coma scale eye opening: Spontaneous Martin coma scale verbal response: Orientated Buck coma scale motor response: Obey commands Martin coma scale total score: 15 SENSORY EXAM: Yes extremities (intact) Psych: COMMON NORMALS: speech normal SPEECH: Yes normal speech Skin: COMMON NORMALS: no rashes or lesions noted GENERAL SKIN EXAM: no rashes or lesions noted Course Vital Signs: Vital signs: Vital Signs Temperature 98.1 F 04/11/23 23:54 Pulse Rate 81 04/12/23 05:39 Respiratory Rate 18 04/12/23 05:09 Blood Pressure 177/113 04/12/23 05:39 Pulse Oximetry 97 04/12/23 05:39 MDM - Abdominal Pain Medical Decision Making This patient by CT has a large hydrocele in the right testicle full of ascitic fluid coming from the inguinal canal. There is no bowel strangulation, etc. He has not had an abdominal paracentesis for a couple of weeks. He is obviously swollen. We will see if we can schedule him for an outpatient ultrasound-guided paracentesis earlier this week, as this is his likely best therapeutic option to decrease the size of the hydrocele which is significant. Lab Data 04/12/23 03:05 04/12/23 03:05 Labs/Radiology: Radiology Impressions Abdomen/Pelvis CT 04/12/23 01:40 IMPRESSION: 1. Possible filling defect in a right lower lobe subsegmental pulmonary artery branch. Consider dedicated CT PE study for further evaluation. 2. Partially imaged large fluid containing right inguinal hernia, increased in size compared to prior. Slightly increased size of small fluid containing periumbilical hernia. 3. Bilateral inguinal adenopathy, slowly increasing in size since 07/27/2022 exam. Somewhat nonspecific, but raises suspicion for malignancy, recommend ultrasound-guided biopsy. Scattered mildly enlarged retroperitoneal and pelvic lymph nodes are also slightly increased in size compared to prior. 4. Cirrhotic morphology of the liver with sequela of portal hypertension, including splenomegaly, and moderate-large volume ascites. 5. Cardiomegaly. Laboratory Results WBC 4.69 10^3/uL (3.29-11.43) 04/12/23 03:05 RBC 3.10 10^6/uL (3.85-5.65) L 04/12/23 03:05 Hgb 8.30 g/dL (11.27-16.99) L 04/12/23 03:05 Hct 25.8 % (37-53) L 04/12/23 03:05 MCV 83.2 fl (82-101) 04/12/23 03:05 MCH 26.8 pg (27-33) L 04/12/23 03:05 MCHC 32.2 g/dL (30-55) 04/12/23 03:05 RDW 17.8 % (12.1-15.1) H 04/12/23 03:05 Plt Count 154 10^3/cmm (157-399) L 04/12/23 03:05 MPV 9.5 fL (7.4-10.4) 04/12/23 03:05 Neut % (Auto) 69.9 % 04/12/23 03:05 Lymph % (Auto) 11.1 % 04/12/23 03:05 [place] % (Auto) 7.7 % 04/12/23 03:05 Eos % (Auto) 9.4 % 04/12/23 03:05 Baso % (Auto) 1.7 % 04/12/23 03:05 Neut # (Auto) 3.28 10^3/uL (1.8-7.7) 04/12/23 03:05 Lymph # (Auto) 0.5 10^3/uL (0.8-4.8) L 04/12/23 03:05 [place] # (Auto) 0.4 10^3/uL (0.2-0.9) 04/12/23 03:05 Eos # (Auto) 0.4 10^3/uL (0.0-0.8) 04/12/23 03:05 Baso # (Auto) 0.1 10^3/uL (0.0-0.1) 04/12/23 03:05 Nucleated RBC % (auto) 0 % 04/12/23 03:05 Nucleated RBCs # 0.0 /100WBC 04/12/23 03:05 Sodium 128 mmol/L (136-145) L 04/12/23 03:05 Potassium 3.8 mmol/L (3.5-5.1) 04/12/23 03:05 Chloride 87 mmol/L (98-107) L 04/12/23 03:05 Carbon Dioxide 32 mmol/L (22-29) H 04/12/23 03:05 Anion Gap 12.8 (5-19) 04/12/23 03:05 BUN 18 mg/dL (6-20) 04/12/23 03:05 Creatinine 4.7 mg/dL (0.7-1.2) H 04/12/23 03:05 GFR Calculation 13.9 mL/min (90-130) L 04/12/23 03:05 Glucose 77 mg/dL (65-115) 04/12/23 03:05 Calculated Osmolality 267 mOsm/kg (285-295) L 04/12/23 03:05 Lactic Acid 0.5 mmol/L (0.5-2.2) 04/12/23 03:05 Calcium 10.2 mg/dL (8.5-10.5) 04/12/23 03:05 Total Bilirubin 0.6 mg/dL (0.15-1.2) 04/12/23 03:05 AST 15 U/L (0-40) 04/12/23 03:05 ALT 7 U/L (0-41) 04/12/23 03:05 Alkaline Phosphatase 130 U/L (40-130) 04/12/23 03:05 C-Reactive Protein 47.1 mg/L (0.0-4.9) H 04/12/23 03:05 Total Protein 7.3 g/dL (6.6-8.7) 04/12/23 03:05 Albumin 3.8 g/dL (3.5-5.2) 04/12/23 03:05 Globulin 3.5 g/dL (1.3-4.6) 04/12/23 03:05 All radiology interpretation(s) finalized by discharge Discharge Plan Discharge Patient Disposition: Home Clinical Impression: Right hydrocele, Acquired hydrocele Condition: Stable Prescriptions: New hydrocodone-acetaminophen 5-325 mg tablet 1 tab PO Q8H PRN (Reason: pain) Qty: 7 0RF No Action (DME) DME - BIPAP See Rx Instructions .Route .MEDSUPPLY Qty: 1 0RF Rx Instructions: Inspiratory Pressure: 16mmHg Expiratory Pressure: 8 mmHg Will need oxygen bled in to the machine to maintain sats >/= 90%. (DME) DME - Oxygen See Rx Instructions .Route .MEDSUPPLY Qty: 1 0RF Rx Instructions: Supplemental Oxygen bled into BIPAP at 2-3L to maintain oxygen sats at >/= 90%. Auryxia 210 mg iron Tablet See Rx Instructions .ROUTE .COMPLEX Rx Instructions: 420 mg (2 tabs) orally three times a day and 210mg (1 tab) with snacks aspirin 81 mg tablet,delayed release (DR/EC) 81 mg PO DAILY pantoprazole 40 mg tablet,delayed release (DR/EC) 40 mg PO DAILY isosorbide mononitrate 120 mg tablet extended release 24 hr 240 mg PO DAILY RenaPlex-D 800 mcg-12.5 mg -2,000 unit tablet 1 tab PO DAILY losartan 50 mg tablet 100 mg PO DAILY Qty: 60 0RF minoxidil 2.5 mg Tablet 5 mg PO BID Qty: 60 0RF carvedilol 25 mg tablet 37.5 mg PO Q12H clonidine 0.2 mg/24 hr patch weekly 0.2 mg topical Q7D atorvastatin 40 mg tablet 40 mg PO BEDTIME amlodipine 10 mg tablet 10 mg PO DAILY hydralazine 100 mg tablet 100 mg PO Q8H prasugrel 10 mg tablet 10 mg PO DAILY cyanocobalamin (vitamin B-12) 1,000 mcg capsule 1,000 mcg PO DAILY Qty: 30 0RF naloxone 4 mg/actuation spray,non-aerosol See Rx Instructions .ROUTE .COMPLEX Rx Instructions: ADMINISTER 1 SPRAY ( 4 MG ) IN ONE NOSTRIL ( ALTERNATE NOSTRIL WITH EACH DOSE ) EVERY 5 MINUTES NEEDED FOR OPIOID OVERDOSE SYMPTOMS gabapentin 100 mg capsule See Rx Instructions .ROUTE .COMPLEX Rx Instructions: 100 mg orally as directed doxycycline hyclate 100 mg tablet 100 mg PO BID Discharge Orders: Discharge ED (Routine); Ordered 04/12/23 Ordered By: Jose Ward Referrals: Mal Junior [Primary Care Provider] - 1-3 days Patient Instructions: Hydrocele (ED), Opioid Safety, Pain Management Activity Restrictions/Additional Instructions: You have a large hydrocele in your right testicle caused by the extra fluid on your belly. We will make an appointment for you as an outpatient to drain your belly this week. Until that time keep the area elevated. Taking off extra fluid and dialysis may help to some degree. Return for fever, vomiting, other concerning symptoms. You should get a call from the hospital regarding setting up the ultrasound-guided paracentesis early this week. Coding Level of Care Code ED Stem Lead Former for Cristi Diane
== END 2023-04-12 05:41 | disposition home or self-care (01) ==
PROVIDERS: Emergency Provider Emergency Medicine; PCP Family Medicine
DX: N43.3 Hydrocele, unspecified (principal); Z79.82 Long term (current) use of aspirin; F17.210 Nicotine dependence, cigarettes, uncomplicated; I13.2 Hypertensive heart and chronic kidney disease with heart failure and with stage 5 chronic kidney disease, or end stage renal disease; N18.6 End stage renal disease; I50.9 Heart failure, unspecified; Z99.2 Dependence on renal dialysis; J44.9 Chronic obstructive pulmonary disease, unspecified; Z99.81 Dependence on supplemental oxygen
CPT/HCPCS: 74177; 80053; 83605; 85025; 86140; 96374; 96375; 96376; 99285; J2270; J2405; Q9967

== ENCOUNTER 2023-04-22 12:26 | Day surgery (SDC) | payer MEDICARE, MEDICAID, SELFPAY ==
[2023-04-22 12:36] VITALS: BP 142/105; PULSE 81; RESP 18; TEMP 36.8; O2SAT 93
--- NOTE | 2023-04-22 12:38 | US_ITS ---
WS: [id number] ULTRASOUND-GUIDED THERAPEUTIC AND DIAGNOSTIC PARACENTESIS Procedure, risks, and complications have been explained to the patient. Consent is obtained. Utilizing aseptic technique and 1% buffered lidocaine, a small dermatome was made through which a 5 F rench Yueh catheter was inserted. Approximately 3900 ml of light red peritoneal fluid was obtained wi thout difficulty. No complications encountered. Specimen collected for analysis as requested. IMPRESSION: Uncomplicated paracentesis yielding 3900 ml of peritoneal fluid.
[2023-04-22 13:14] LABS: Cyto Order Verification Order Verified
[2023-04-22 13:39] LABS: Albumin Body Fluid 2.7 g/dL; Total Protein Body Fluid 4.8 g/dL
== END 2023-04-22 13:27 | disposition home or self-care (01) ==
PROVIDERS: Radiology Diagnostic Radiology; PCP Family Medicine; Visit Provider Nurse Practitioner Family
PROC: (CPT 49082; principal; 2023-04-22 13:30)
DX: K74.60 Unspecified cirrhosis of liver (principal)
CPT/HCPCS: 49083; 82042; 84157; 87070; 87075; 87205; 88112; 88305

== ENCOUNTER 2023-04-27 17:49 | Emergency (ER) | payer MEDICARE, MEDICAID, SELFPAY ==
[2023-04-27 18:10] VITALS: BP 135/72; PULSE 77; RESP 19; TEMP 36.5; O2SAT 100; BMI 22.4
[2023-04-27] MEDS: ondansetron 2 mg/ML SDV 2 mL 4 MG IVP (19:12)
[2023-04-27] MEDS: morphine 4 mg/mL SDV 1 mL IVP ×2 (19:14→20:32)
[2023-04-27 19:28] LABS: Basophils # 0.1 10^3/uL (0.0-0.1); Basophils % 1.7 %; Eosinophils # 0.4 10^3/uL (0.0-0.8); Eosinophils % 9.8 %; Lymphocytes # 0.6 10^3/uL (0.8-4.8); Lymphocytes % 14.4 %; Mean Corpuscular HGB Conc 32.8 g/dL (30-55); Mean Corpuscular Hemoglobin 26.8 pg (27-33); Mean Corpuscular Volume 81.7 fl (82-101); Mean Platelet Volume 9.7 fL (7.4-10.4); Monocytes # 0.3 10^3/uL (0.2-0.9); Monocytes % 7.3 %; Neutrophils # 2.72 10^3/uL (1.8-7.7); Neutrophils % 66.6 %; Nucleated Red Blood Cells % 0 %; Platelet Count 209 10^3/cmm (157-399); Red Blood Count 3.55 10^6/uL (3.85-5.65); Red Cell Distribution Width 18.4 % (12.1-15.1); White Blood Count 4.09 10^3/uL (3.29-11.43)
--- NOTE | 2023-04-27 19:40 | W.ED.ABDPA2 ---
HPI - Abdominal Pain General: Chief Complaint: Abdominal Pain Stated Complaint: Abd/Groin Pain Time Seen by Provider: 04/27/23 18:19 History of Present Illness: 42-year-old male gentleman with a history of end-stage renal disease on dialysis. He also has a history of a large hydrocele to his right scrotum. He presents after his dog struck him in the right side of the scrotum. He has increased pain in the area. He is nauseated. No fever. He had dialysis on Thursday, and plans to have dialysis again tomorrow morning. Other than increasing pain, he has been stable. MD elicited complaint: abdominal pain Associated Symptoms: Reports nausea; Denies chills, fever(s) and vomiting Review of Systems Const: Denies: fever(s) or chills ENMT: Denies: throat pain Card: Denies: chest pain Resp: Denies: dyspnea GI: Reports: nausea; Denies: abdominal pain or vomiting : Reports: testicular pain and scrotal swelling; Denies: flank pain or penile discharge Skin/Breast: Denies: rash PFSH ED PFSH: Medical History Acute and chronic respiratory failure with hypoxia Patient under care of multiple providers Hypertensive urgency History of cardiovascular stress test 07/2022 at [facility] perfusion imaging probably normal, no reversible defects, small fixed defect in apical anterior wall, EF 54%, nonischemic response to stress by EKG criteria Depression Epididymitis 06/2022 Pulmonary hypertension Uses bilevel positive airway pressure (BPAP) ventilation at home Umbilical hernia History of home oxygen therapy History of coronary angiogram 11/2021 - patent stent Inguinal hernia Anxiety Chronic respiratory failure on home oxygen and bipap Low back pain Nicotine dependence, cigarettes, with other nicotine-induced disorders Generalized anxiety disorder with panic attacks ESRD on dialysis Atherosclerosis of coronary artery Stent and balloon angioplasty to proximal 1 OM branch Chronic abdominal pain COVID 05/25 Hypertensive emergency recurrent episodes Urethral stricture Abdominal ascites history of intermittent paracentesis, transudative fluid; prior work up has included negative biopsy, ceruloplasmin level normal, low iron, high ferritin, normal TIBC, negative HIV, hepatitis panel negative, JESÚS/SCL 70/double-stranded DNA antibodies negative, Alpha-fetoprotein level unremarkable, nonalcoholic by history, has hepatomegaly and splenomegaly Pulmonary embolism 09/21 CTA inconclusive for very tiny peripheral LEFT lower lobe pulmonary artery sub segmental emboli versus poor opacification. Anemia chronic kidney disease Congestive heart failure preserved ejection fraction COPD (chronic obstructive pulmonary disease) Arteriovenous fistula for hemodialysis in place, secondary Degenerative disc disease, lumbar Hypertension uncontrolled Surgical History Stented coronary artery H/O hand surgery Amputation right 2&3 fingers 2017 History of adenoidectomy Family History Other Hypertension Social History Smoking and tobacco/nicotine status: current every day tobacco/nicotine user cigarettes Packs smoked per day: 1.5 Years cigarettes smoked: 21 [ Other cigarette details: started age 20, currently 0.5ppd ] Alcohol intake: never Substance/Drug Use: never Number of children: 3 Current occupational status: disabled Do you think of yourself as: Straight/Heterosexual Physical Exam Const: GENERAL APPEARANCE: cooperative and in distress (in pain) HENMT: COMMON NORMALS: normocephalic and Normal external nose present HEAD & SCALP: normocephalic FACE & SINUS: normal facial exam and face symmetric NOSE: Normal external nose present Eye: COMMON NORMALS: Equal, round and reactive pupils present and EOMs intact bilaterally PUPIL: Yes Equal, round and reactive pupils present Chest: CHEST: Yes Symmetrical chest wall rise Resp: COMMON NORMALS: clear to auscultation bilaterally AUSCULTATION: clear to auscultation bilaterally Cardio: COMMON NORMALS: regular rate and regular rhythm RATE: regular rate RHYTHM: regular rhythm GI: INSPECTION: Yes abdominal distension (Mild) : OTHER: Impressively large right scrotal sac with large hydrocele. No definite cellulitis. No drainage. It is tender to palpation. Neuro: BUCK COMA SCALE: document GCS findings Buck coma scale eye opening: Spontaneous Buck coma scale verbal response: Orientated Buck coma scale motor response: Obey commands [place] coma scale total score: 15 Course Vital Signs: Vital signs: Vital Signs Temperature 97.7 F 04/27/23 18:10 Pulse Rate 73 04/27/23 20:49 Respiratory Rate 18 04/27/23 20:49 Blood Pressure 135/72 04/27/23 18:10 Pulse Oximetry 97 04/27/23 20:49 Oxygen Delivery Me thod Room Air 04/27/23 18:10 MDM - Abdominal Pain Medical Decision Making White blood cell count is 4. Hemoglobin is 9.5. CRP is 20. His creatinine is 7 consistent with his history of dialysis. His sodium is gone down to 126, but will be corrected at dialysis tomorrow. He has a significant hydrocele that is very tender to touch on palpation on exam. No evidence of infection to the area. It is not hot. No ecchymosis. Will attempt to get this patient an outpatient urology follow-up to see if there are any surgical options, as the hydrocele is very large, and I am sure a cause of chronic pain in this patient. Pain medication for home. Dialysis tomorrow. Return for worsening. Lab Data 04/27/23 19:00 04/27/23 19:00 Labs/Radiology: Laboratory Results WBC 4.09 10^3/uL (3.29-11.43) 04/27/23 19:00 RBC 3.55 10^6/uL (3.85-5.65) L 04/27/23 19:00 Hgb 9.50 g/dL (11.27-16.99) L 04/27/23 19:00 Hct 29.0 % (37-53) L 04/27/23 19:00 MCV 81.7 fl (82-101) L 04/27/23 19:00 MCH 26.8 pg (27-33) L 04/27/23 19:00 MCHC 32.8 g/dL (30-55) 04/27/23 19:00 RDW 18.4 % (12.1-15.1) H 04/27/23 19:00 Plt Count 209 10^3/cmm (157-399) 04/27/23 19:00 MPV 9.7 fL (7.4-10.4) 04/27/23 19:00 Neut % (Auto) 66.6 % 04/27/23 19:00 Lymph % (Auto) 14.4 % 04/27/23 19:00 [place] % (Auto) 7.3 % 04/27/23 19:00 Eos % (Auto) 9.8 % 04/27/23 19:00 Baso % (Auto) 1.7 % 04/27/23 19:00 Neut # (Auto) 2.72 10^3/uL (1.8-7.7) 04/27/23 19:00 Lymph # (Auto) 0.6 10^3/uL (0.8-4.8) L 04/27/23 19:00 [place] # (Auto) 0.3 10^3/uL (0.2-0.9) 04/27/23 19:00 Eos # (Auto) 0.4 10^3/uL (0.0-0.8) 04/27/23 19:00 Baso # (Auto) 0.1 10^3/uL (0.0-0.1) 04/27/23 19:00 Nucleated RBC % (auto) 0 % 04/27/23 19:00 Nucleated RBCs # 0.0 /100WBC 04/27/23 19:00 Sodium 126 mmol/L (136-145) L 04/27/23 19:00 Potassium 3.9 mmol/L (3.5-5.1) 04/27/23 19:00 Chloride 86 mmol/L (98-107) L 04/27/23 19:00 Carbon Dioxide 30 mmol/L (22-29) H 04/27/23 19:00 Anion Gap 13.9 (5-19) 04/27/23 19:00 BUN 26 mg/dL (6-20) H 04/27/23 19:00 Creatinine 7.0 mg/dL (0.7-1.2) H* 04/27/23 19:00 GFR Calculation 8.8 mL/min (90-130) L 04/27/23 19:00 Glucose 83 mg/dL (65-115) 04/27/23 19:00 Calculated Osmolality 266 mOsm/kg (285-295) L 04/27/23 19:00 Calcium 10.1 mg/dL (8.5-10.5) 04/27/23 19:00 Total Bilirubin 0.4 mg/dL (0.15-1.2) 04/27/23 19:00 AST 13 U/L (0-40) 04/27/23 19:00 ALT < 5 U/L (0-41) 04/27/23 19:00 Alkaline Phosphatase 106 U/L (40-130) 04/27/23 19:00 C-Reactive Protein 20.4 mg/L (0.0-4.9) H 04/27/23 19:00 Total Protein 7.2 g/dL (6.6-8.7) 04/27/23 19:00 Albumin 3.6 g/dL (3.5-5.2) 04/27/23 19:00 Globulin 3.6 g/dL (1.3-4.6) 04/27/23 19:00 Lipase 31 U/L (13-60) 04/27/23 19:00 No radiology studies performed this visit Discharge Plan Discharge Patient Disposition: Home Clinical Impression: Right hydrocele, End-stage renal disease on hemodialysis Condition: Stable Prescriptions: Continued hydrocodone-acetaminophen 5-325 mg tablet 1 tab PO Q8H PRN (Reason: pain) Qty: 7 0RF No Action (DME) DME - BIPAP See Rx Instructions .Route .MEDSUPPLY Qty: 1 0RF Rx Instructions: Inspiratory Pressure: 16mmHg Expiratory Pressure: 8 mmHg Will need oxygen bled in to the machine to maintain sats >/= 90%. (DME) DME - Oxygen See Rx Instructions .Route .MEDSUPPLY Qty: 1 0RF Rx Instructions: Supplemental Oxygen bled into BIPAP at 2-3L to maintain oxygen sats at >/= 90%. Auryxia 210 mg iron Tablet See Rx Instructions .ROUTE .COMPLEX Rx Instructions: 420 mg (2 tabs) orally three times a day and 210mg (1 tab) with snacks aspirin 81 mg tablet,delayed release (DR/EC) 81 mg PO DAILY pantoprazole 40 mg tablet,delayed release (DR/EC) 40 mg PO DAILY isosorbide mononitrate 120 mg tablet extended release 24 hr 240 mg PO DAILY RenaPlex-D 800 mcg-12.5 mg -2,000 unit tablet 1 tab PO DAILY losartan 50 mg tablet 100 mg PO DAILY Qty: 60 0RF minoxidil 2.5 mg Tablet 5 mg PO BID Qty: 60 0RF carvedilol 25 mg tablet 37.5 mg PO Q12H clonidine 0.2 mg/24 hr patch weekly 0.2 mg topical Q7D atorvastatin 40 mg tablet 40 mg PO BEDTIME amlodipine 10 mg tablet 10 mg PO DAILY hydralazine 100 mg tablet 100 mg PO Q8H prasugrel 10 mg tablet 10 mg PO DAILY cyanocobalamin (vitamin B-12) 1,000 mcg capsule 1,000 mcg PO DAILY Qty: 30 0RF naloxone 4 mg/actuation spray,non-aerosol 4 mg intranasal PRN PRN (Reason: overdose) Rx Instructions: ADMINISTER 1 SPRAY ( 4 MG ) IN ONE NOSTRIL ( ALTERNATE NOSTRIL WITH EACH DOSE ) EVERY 5 MINUTES NEEDED FOR OPIOID OVERDOSE SYMPTOMS gabapentin 100 mg capsule 100 mg PO DAILY Rx Instructions: 100 mg orally as directed doxycycline hyclate 100 mg tablet 100 mg PO BID Discharge Orders: Discharge ED (Routine); Ordered 04/27/23 Ordered By: Jose Ward Referrals: Mal Junior [Primary Care Provider] - Patient Instructions: Hydrocele (ED), Testicle Pain (ED), Opioid Safety, Pain Management Activity Restrictions/Additional Instructions: Support, elevation, and gentle icing may help. Pain medication as needed. Case management has been asked to find a relative strength to see if any more definitive management options are available. Return for worsening symptoms despite treatment. Coding Level of Care Code ED Employee Relations Director for Cristi Diane
[2023-04-27 19:41] LABS: Alanine Aminotransferase < 5 U/L (0-41); Albumin Level 3.6 g/dL (3.5-5.2); Alkaline Phosphatase 106 U/L (40-130); Anion Gap 13.9 (5-19); Aspartate Amino Transferase 13 U/L (0-40); Blood Urea Nitrogen 26 mg/dL (6-20); C Reactive Protein 20.4 mg/L (0.0-4.9); Calcium 10.1 mg/dL (8.5-10.5); Carbon Dioxide 30 mmol/L (22-29); Chloride 86 mmol/L (98-107); Globulin 3.6 g/dL (1.3-4.6); Glomerular Filtration Rate 8.8 mL/min (90-130); Glucose 83 mg/dL (65-115); Lipase 31 U/L (13-60); Osmolality Calculated 266 mOsm/kg (285-295); Potassium 3.9 mmol/L (3.5-5.1); Sodium 126 mmol/L (136-145); Total Bilirubin 0.4 mg/dL (0.15-1.2); Total Protein 7.2 g/dL (6.6-8.7)
[2023-04-27 20:32] VITALS: RESP 18; O2SAT 97
[2023-04-27 20:49] VITALS: PULSE 73; RESP 18; O2SAT 97
--- NOTE | 2023-04-27 23:37 | PC.NURSE ---
Pt sent home with [address] [place] [address] Ward orders.
--- NOTE | 2023-05-05 10:36 | DCPLANNER ---
Attempted to call patient on 04/30/23at 1533 no voicemail. Calling to see where patient would like his urology referral to be sent
== END 2023-04-27 20:41 | disposition home or self-care (01) ==
PROVIDERS: Emergency Provider Emergency Medicine; PCP Family Medicine
DX: N43.3 Hydrocele, unspecified (principal); I13.2 Hypertensive heart and chronic kidney disease with heart failure and with stage 5 chronic kidney disease, or end stage renal disease; N18.6 End stage renal disease; I50.9 Heart failure, unspecified; Z99.2 Dependence on renal dialysis; Z99.81 Dependence on supplemental oxygen; I25.10 Atherosclerotic heart disease of native coronary artery without angina pectoris; J44.9 Chronic obstructive pulmonary disease, unspecified; F17.210 Nicotine dependence, cigarettes, uncomplicated
CPT/HCPCS: 80053; 83690; 85025; 86140; 96374; 96375; 96376; 99284; J2270; J2405

== ENCOUNTER 2023-05-02 19:24 | Emergency (ER) | payer MEDICARE, MEDICAID, SELFPAY ==
[2023-05-02 19:27] VITALS: BP 139/61; PULSE 71; RESP 20; TEMP 36.9; O2SAT 95
--- NOTE | 2023-05-02 20:40 | USR_ITS ---
PROCEDURE INFORMATION: Exam: US Scrotum and Artery or Vein of the Abdominal and/or Reproductive Organs, Limited Scrotum Exam date and time: 05/02/2023 9:42 PM Age: 42 years old Clinical indication: Scrotum pain; Additional info: Testicle pain TECHNIQUE: Imaging protocol: Real-time ultrasound of the scrotum. Real-time duplex ultrasound scan of the arterial or venous flow with silva scale, color Doppler flow and spectral waveform analysis with image documentation. Limited Duplex exam focused of the scrotum. Duplex exam was performed to evaluate for torsion and other vascular conditions. COMPARISON: 1. US scrotum [id number] 10/21/2022 3:[address] abdomen pelvis w con* [id number] 04/12/2023 2:05 AM FINDINGS: Right testicle: Normal echotexture. No mass. No torsion. Normal Duplex waveforms and color doppler. Measures 2.2 x 2.2 x 3.3 cm. Left testicle: Normal echotexture. No mass. No torsion. Normal Duplex waveforms and color doppler. Measures 1.9 x 1.8 x 3.3 cm. Epididymides: Questionable increased vascularity within both epididymides. Scrotum: Large fluid filled structure in the right scrotum. Bilateral hydroceles, [id number]. US/US scrotum [id number] IMPRESSION: 1. Questionable increased vascularity within both epididymides. Consider possibility of bilateral epididymitis. 2. Testicles appear within normal limits, with no evidence of torsion or definite orchitis. 3. Large fluid filled structure in the right scrotum. This corresponds to the large fluid-filled right inguinal hernia seen on prior CT scan, which did extend all the way down into the scrotum. 4. Bilateral hydroceles, [id number].
--- NOTE | 2023-05-02 20:43 | ED_ITS ---
HPI - Male Genitourinary General: Chief complaint: Urogenital-Male Stated complaint: hernia pain, foot pain Time Seen by Provider: 05/02/23 20:34 Source: patient Mode of arrival: ambulatory Limitations: no limitations History of Present Illness: 42-year-old male with a history of a rig ht inguinal hernia for quite some time he states that today's became more swollen he is having pain he rates his pain a 9 out of 10 denies any worsening proving factors has no other complaints at this time. Associated symptoms: Deny dysuria, nausea or vomiting Review of Systems Const: Denies: fever(s), chills, body aches or change in appetite ENMT: Denies: throat pain or dental pain Card: Denies: chest pain Resp: Denies: dyspnea GI: Denies: nausea, vomiting or diarrhea : Reports: testicular pain and scrotal swelling; Denies: dysuria Musc: Denies: neck pain or back pain Skin/Breast: Denies: rash Neuro: Denies: headache(s) PFSH ED PFSH: Medical History Acute and chronic respiratory failure with hypoxia Patient under care of multiple providers Hypertensive urgency History of cardiovascular stress test 07/2022 at [facility] perfusion imaging probably normal, no reversible defects, small fixed defect in apical anterior wall, EF 54%, nonischemic response to stress by EKG criteria Depression Epididymitis 06/2022 Pulmonary hypertension Uses bilevel positive airway pressure (BPAP) ventilation at home Umbilical hernia History of home oxygen therapy History of coronary angiogram 11/2021 - patent stent Inguinal hernia Anxiety Chronic respiratory failure on home oxygen and bipap Low back pain Nicotine dependence, cigarettes, with other nicotine-induced disorders Generalized anxiety disorder with panic attacks ESRD on dialysis Atherosclerosis of coronary artery Stent and balloon angioplasty to proximal 1 OM branch Chronic abdominal pain COVID 05/25 Hypertensive emergency recurrent episodes Urethral stricture Abdominal ascites history of intermittent paracentesis, transudative fluid; prior work up has included negative biopsy, ceruloplasmin level normal, low iron, high ferritin, normal TIBC, negative HIV, hepatitis panel negative, JESÚS/SCL 70/double-stranded DNA antibodies negative, Alpha-fetoprotein level unremarkable, nonalcoholic by history, has hepatomegaly and splenomegaly Pulmonary embolism 09/21 CTA inconclusive for very tiny peripheral LEFT lower lobe pulmonary artery sub segmental emboli versus poor opacification. Anemia chronic kidney disease Congestive heart failure preserved ejection fraction COPD (chronic obstructive pulmonary disease) Arteriovenous fistula for hemodialysis in place, secondary Degenerative disc disease, lumbar Hypertension uncontrolled Surgical History Stented coronary artery H/O hand surgery Amputation right 2&3 fingers 2017 History of adenoidectomy Family History Other Hypertension Social History Smoking and tobacco/nicotine status: current every day tobacco/nicotine user cigarettes Packs smoked per day: 1.5 Years cigarettes smoked: 21 [ Other cigarette details: started age 20, currently 0.5ppd ] Alcohol intake: never Substance/Drug Use: never Number of children: 3 Current occupational status: disabled Do you think of yourself as: Straight/Heterosexual Physical Exam Const: COMMON NORMALS: no acute distress, patient oriented x3 and healthy appearing HENMT: COMMON NORMALS: normocephalic and atraumatic HEAD & SCALP: normoce phalic and atraumatic Neck/C-Spine: COMMON NORMALS: full ROM and supple Chest: COMMONS NORMALS: normal inspection of the chest Resp: COMMON NORMALS: normal respiratory effort GI: COMMON NORMALS: Soft to palpation, non-tender and no masses PALPATION: Yes Soft to palpation : OTHER: Swelling noted to right testicle Extremity: COMMON NORMALS: normal to inspection and full ROM Neuro: COMMON NORMALS: patient oriented x3, moves all extremities and no focal motor deficits Psych: COMMON NORMALS: mental status grossly normal, Normal thought process present and cooperative THOUGHT PROCESS: Normal thought process present Skin: COMMON NORMALS: no rashes or lesions noted and no wounds GENERAL SKIN EXAM: no rashes or lesions noted Course Vital Signs: Vital signs: Vital Signs Temperature 98.4 F 05/02/23 19:27 Pulse Rate 71 05/02/23 19:27 Respiratory Rate 20 H 05/02/23 19:27 Blood Pressure 139/61 05/02/23 19:27 Pulse Oximetry 95 05/02/23 19:27 Oxygen Delivery Me thod Room Air 05/02/23 19:27 MDM - Male Medical Decision Making Patient presents here with right inguinal hernia along with possible epididymitis he has no signs of strangulation he is stable for discharge he is to follow-up with PCP will place him on doxycycline he is return if worsening. Medical Records I reviewed the patient's medical records. Lab Data I reviewed the patient's lab results. Radiology Impressions Scrotum Ultrasound 05/02/23 20:40 IMPRESSION: 1. Questionable increased vascularity within both epididymides. Consider possibility of bilateral epididymitis. 2. Testicles appear within normal limits, with no evidence of torsion or definite orchitis. 3. Large fluid filled structure in the right scrotum. This corresponds to the large fluid-filled right inguinal hernia seen on prior CT scan, which did extend all the way down into the scrotum. 4. Bilateral hydroceles, [id number]. All radiology interpretation(s) finalized by discharge Discharge Plan Discharge Patient Disposition: Home Clinical Impression: Inguinal hernia, Epididymitis Condition: Stable Prescriptions: New doxycycline hyclate 100 mg tablet 100 mg PO BID 7 Days Qty: 14 0RF No Action (DME) DME - BIPAP See Rx Instructions .Route .MEDSUPPLY Qty: 1 0RF Rx Instructions: Inspiratory Pressure: 16mmHg Expiratory Pressure: 8 mmHg Will need oxygen bled in to the machine to maintain sats >/= 90%. (DME) DME - Oxygen See Rx Instructions .Route .MEDSUPPLY Qty: 1 0RF Rx Instructions: Supplemental Oxygen bled into BIPAP at 2-3L to maintain oxygen sats at >/= 90%. Auryxia 210 mg iron Tablet See Rx Instructions .ROUTE .COMPLEX Rx Instructions: 420 mg (2 tabs) orally three times a day and 210mg (1 tab) with snacks aspirin 81 mg tablet,delayed release (DR/EC) 81 mg PO DAILY pantoprazole 40 mg tablet,delayed release (DR/EC) 40 mg PO DAILY isosorbide mononitrate 120 mg tablet extended release 24 hr 240 mg PO DAILY RenaPlex-D 800 mcg-12.5 mg -2,000 unit tablet 1 tab PO DAILY losartan 50 mg tablet 100 mg PO DAILY Qty: 60 0RF minoxidil 2.5 mg Tablet 5 mg PO BID Qty: 60 0RF carvedilol 25 mg tablet 37.5 mg PO Q12H clonidine 0.2 mg/24 hr patch weekly 0.2 mg topical Q7D atorvastatin 40 mg tablet 40 mg PO BEDTIME amlodipine 10 mg tablet 10 mg PO DAILY hydralazine 100 mg tablet 100 mg PO Q8H prasugrel 10 mg tablet 10 mg PO DAILY hydrocodone-acetaminophen 5-325 mg tablet 1 tab PO Q8H PRN (Reason: pain) Qty: 7 0RF cyanocobalamin (vitamin B-12) 1,000 mcg capsule 1,000 mcg PO DAILY Qty: 30 0RF naloxone 4 mg/actuation spray,non-aerosol 4 mg intranasal PRN PRN (Reason: overdose) Rx Instructions: ADMINISTER 1 SPRAY ( 4 MG ) IN ONE NOSTRIL ( ALTERNATE NOSTRIL WITH EACH DOSE ) EVERY 5 MINUTES NEEDED FOR OPIOID OVERDOSE SYMPTOMS gabapentin 100 mg capsule 100 mg PO DAILY Rx Instructions: 100 mg orally as directed doxycycline hyclate 100 mg tablet 100 mg PO BID Discharge Orders: Discharge ED (Routine); Ordered 05/02/23 Ordered By: Dayana Nunez Referrals: Mal Junior [Primary Care Provider] - 1-3 days Discharge Diet: Advance as tolerated Discharge Activity: Resume usual activity Patient Instructions: Epididymitis (ED), Inguinal Hernia (ED) Coding Level of Care Code ED Concrete Pointer for Cristi Diane
[2023-05-02] MEDS: HYDROcodone-acetaminophen 5-325 mg Tablet 1 TAB PO (20:47)
[2023-05-02 22:54] VITALS: BP 143/22; PULSE 78; RESP 18; O2SAT 97
== END 2023-05-02 22:54 | disposition home or self-care (01) ==
PROVIDERS: Emergency Provider Emergency Medicine; PCP Family Medicine
DX: K40.90 Unilateral inguinal hernia, without obstruction or gangrene, not specified as recurrent (principal); N45.1 Epididymitis; N43.3 Hydrocele, unspecified; Z79.82 Long term (current) use of aspirin; F17.210 Nicotine dependence, cigarettes, uncomplicated; I13.2 Hypertensive heart and chronic kidney disease with heart failure and with stage 5 chronic kidney disease, or end stage renal disease; N18.6 End stage renal disease; I50.9 Heart failure, unspecified; Z99.2 Dependence on renal dialysis; I25.10 Atherosclerotic heart disease of native coronary artery without angina pectoris; J44.9 Chronic obstructive pulmonary disease, unspecified
CPT/HCPCS: 76870; 99284

== ENCOUNTER 2023-05-04 21:05 | Emergency (ER) | payer MEDICARE, MEDICAID, SELFPAY ==
[2023-05-04 21:18] VITALS: PULSE 74; RESP 17; TEMP 36.8; O2SAT 95; BMI 25.0
--- NOTE | 2023-05-04 21:37 | ED_ITS ---
HPI - Abdominal Pain General: Chief Complaint: Abdominal Pain Stated Complaint: Stomach pain nausea hernia problems Time Seen by Provider: 05/04/23 21:07 Source: patient Mode of arrival: ambulatory Limitations: no limitations History of Present Illness: 42-year-old male he has chronic abdomina l pains along with a right inguinal hernia has been seen multiple times for this. He had recent ultrasound and CT states he is been having pain rates his pain a 5 out of 10 currently he denies any shortness of breath denies any worse improved factors. Associated Symptoms: Denies chills, diarrhea, dysuria, fever(s), nausea and vomiting Review of Systems Const: Denies: fever(s), chills, body aches or change in appetite ENMT: Denies: throat pain or dental pain Card: Denies: chest pain Resp: Denies: dyspnea GI: Reports: abdominal pain; Denies: nausea, vomiting or diarrhea : Denies: dysuria Musc: Denies: neck pain or back pain Skin/Breast: Denies: rash Neuro: Denies: headache(s) PFSH ED PFSH: Medical History Acute and chronic respiratory failure with hypoxia Patient under care of multiple providers Hypertensive urgency History of cardiovascular stress test 07/[address] [facility] perfusion imaging probably normal, no reversible defects, small fixed defect in apical anterior wall, EF 54%, nonischemic response to stress by EKG criteria Depression Epididymitis 06/2022 Pulmonary hypertension Uses bilevel positive airway pressure (BPAP) ventilation at home Umbilical hernia History of home oxygen therapy History of coronary angiogram 11/2021 - patent stent Inguinal hernia Anxiety Chronic respiratory failure on home oxygen and bipap Low back pain Nicotine dependence, cigarettes, with other nicotine-induced disorders Generalized anxiety disorder with panic attacks ESRD on dialysis Atherosclerosis of coronary artery Stent and balloon angioplasty to proximal 1 OM branch Chronic abdominal pain COVID 05/25 Hypertensive emergency recurrent episodes Urethral stricture Abdominal ascites history of intermittent paracentesis, transudative fluid; prior work up has included negative biopsy, ceruloplasmin level normal, low iron, high ferritin, normal TIBC, negative HIV, hepatitis panel negative, JESÚS/SCL 70/double-stranded DNA antibodies negative, Alpha-fetoprotein level unremarkable, nonalcoholic by history, has hepatomegaly and splenomegaly Pulmonary embolism 09/21 CTA inconclusive for very tiny peripheral LEFT lower lobe pulmonary artery sub segmental emboli versus poor opacification. Anemia chronic kidney disease Congestive heart failure preserved ejection fraction COPD (chronic obstructive pulmonary disease) Arteriovenous fistula for hemodialysis in place, secondary Degenerative disc disease, lumbar Hypertension uncontrolled Surgical History Stented coronary artery H/O hand surgery Amputation right 2&3 fingers 2017 History of adenoidectomy Family History Other Hypertension Social History Smoking and tobacco/nicotine status: current every day tobacco/nicotine user cigarettes Packs smoked per day: 1.5 Years cigarettes smoked: 21 [ Other cigarette details: started age 20, currently 0.5ppd ] Alcohol intake: never Substance/Drug Use: never Number of children: 3 Current occupational status: disabled Do you think of yourself as: Straight/Heterosexual Physical Exam Const: COMMON NORMALS: no acute distress and patient oriented x3 HENMT: COMMON NORMALS: atraumatic HEAD & SCALP: atraumatic Eye: COMMON NORMALS: conjunctivae normal CONJUNCTIVA: Yes conjunctivae normal Neck/C-Spine: COMMON NORMALS: supple Chest: COMMONS NORMALS: normal inspection of the chest Resp: COMMON NORMALS: normal respiratory effort GI: OTHER: Abdominal distention abdomen soft Extremity: COMMON NORMALS: normal to inspection Neuro: COMMON NORMALS: patient oriented x3 Psych: COMMON NORMALS: mental status grossly normal Skin: COMMON NORMALS: no rashes or lesions noted GENERAL SKIN EXAM: no rashes or lesions noted Course Vital Signs: Vital signs: Vital Signs Temperature 98.2 F 05/04/23 21:18 Pulse Rate 74 05/04/23 21:18 Respiratory Rate 17 05/04/23 21:18 Pulse Oximetry 95 05/04/23 21:18 Oxygen Delivery Me thod Room Air 05/04/23 21:18 MDM - Abdominal Pain Medical Decision Making Patient presents here with abdominal pain along with right inguinal hernia is chronic in nature he has had recent CTs and ultrasounds his exam here is benign he is stable for discharge follow-up with PCP and return if worsening. Medical Records I reviewed the patient's medical records. No radiology studies performed this visit Discharge Plan Discharge Patient Disposition: Home Clinical Impression: Abdominal pain, Inguinal hernia Condition: Stable Prescriptions: No Action (DME) DME - BIPAP See Rx Instructions .Route .MEDSUPPLY Qty: 1 0RF Rx Instructions: Inspiratory Pressure: 16mmHg Expiratory Pressure: 8 mmHg Will need oxygen bled in to the machine to maintain sats >/= 90%. (DME) DME - Oxygen See Rx Instructions .Route .MEDSUPPLY Qty: 1 0RF Rx Instructions: Supplemental Oxygen bled into BIPAP at 2-3L to maintain oxygen sats at >/= 90%. Auryxia 210 mg iron Tablet See Rx Instructions .ROUTE .COMPLEX Rx Instructions: 420 mg (2 tabs) orally three times a day and 210mg (1 tab) with snacks aspirin 81 mg tablet,delayed release (DR/EC) 81 mg PO DAILY pantoprazole 40 mg tablet,delayed release (DR/EC) 40 mg PO DAILY isosorbide mononitrate 120 mg tablet extended release 24 hr 240 mg PO DAILY RenaPlex-D 800 mcg-12.5 mg -2,000 unit tablet 1 tab PO DAILY losartan 50 mg tablet 100 mg PO DAILY Qty: 60 0RF minoxidil 2.5 mg Tablet 5 mg PO BID Qty: 60 0RF carvedilol 25 mg tablet 37.5 mg PO Q12H clonidine 0.2 mg/24 hr patch weekly 0.2 mg topical Q7D atorvastatin 40 mg tablet 40 mg PO BEDTIME amlodipine 10 mg tablet 10 mg PO DAILY hydralazine 100 mg tablet 100 mg PO Q8H prasugrel 10 mg tablet 10 mg PO DAILY hydrocodone-acetaminophen 5-325 mg tablet 1 tab PO Q8H PRN (Reason: pain) Qty: 7 0RF doxycycline hyclate 100 mg tablet 100 mg PO BID 7 Days Qty: 14 0RF cyanocobalamin (vitamin B-12) 1,000 mcg capsule 1,000 mcg PO DAILY Qty: 30 0RF naloxone 4 mg/actuation spray,non-aerosol 4 mg intranasal PRN PRN (Reason: overdose) Rx Instructions: ADMINISTER 1 SPRAY ( 4 MG ) IN ONE NOSTRIL ( ALTERNATE NOSTRIL WITH EACH DOSE ) EVERY 5 MINUTES NEEDED FOR OPIOID OVERDOSE SYMPTOMS gabapentin 100 mg capsule 100 mg PO DAILY Rx Instructions: 100 mg orally as directed doxycycline hyclate 100 mg tablet 100 mg PO BID Discharge Orders: Discharge ED (Routine); Ordered 05/04/23 Ordered By: Dayana Nunez Referrals: Mal Junior [Primary Care Provider] - 1-3 days Discharge Diet: Advance as tolerated Discharge Activity: Resume usual activity Patient Instructions: Abdominal Pain (ED) Coding Level of Care Code ED Systems Development Manager for Cristi Diane
[2023-05-04] MEDS: HYDROcodone-acetaminophen 5-325 mg Tablet 1 TAB PO (21:43)
== END 2023-05-04 21:45 | disposition home or self-care (01) ==
PROVIDERS: Emergency Provider Emergency Medicine; PCP Family Medicine
DX: K40.90 Unilateral inguinal hernia, without obstruction or gangrene, not specified as recurrent (principal); R10.9 Unspecified abdominal pain; Z79.82 Long term (current) use of aspirin; F17.210 Nicotine dependence, cigarettes, uncomplicated; I13.2 Hypertensive heart and chronic kidney disease with heart failure and with stage 5 chronic kidney disease, or end stage renal disease; N18.6 End stage renal disease; I50.9 Heart failure, unspecified; Z99.2 Dependence on renal dialysis; I25.10 Atherosclerotic heart disease of native coronary artery without angina pectoris; J44.9 Chronic obstructive pulmonary disease, unspecified
CPT/HCPCS: 99284

== ENCOUNTER 2023-05-07 00:23 | Emergency (ER) | payer MEDICARE, MEDICAID, SELFPAY ==
[2023-05-07 00:24] VITALS: BP 142/85; PULSE 78; RESP 20; TEMP 36.8; O2SAT 93; BMI 25.0
[2023-05-07] MEDS: metoclopramide 10 mg Tablet PO (00:38)
[2023-05-07 00:50] LABS: Basophils # 0.1 10^3/uL (0.0-0.1); Basophils % 1.9 %; Eosinophils # 0.4 10^3/uL (0.0-0.8); Eosinophils % 8.9 %; Hematocrit 30.1 % (37-53); Lymphocytes # 0.7 10^3/uL (0.8-4.8); Lymphocytes % 16.1 %; Mean Corpuscular HGB Conc 32.9 g/dL (30-55); Mean Corpuscular Hemoglobin 26.8 pg (27-33); Mean Corpuscular Volume 81.4 fl (82-101); Mean Platelet Volume 10.1 fL (7.4-10.4); Monocytes # 0.3 10^3/uL (0.2-0.9); Monocytes % 6.8 %; Neutrophils # 2.84 10^3/uL (1.8-7.7); Neutrophils % 66.1 %; Nucleated Red Blood Cells % 0 %; Platelet Count 188 10^3/cmm (157-399); Red Cell Distribution Width 19.5 % (12.1-15.1); White Blood Count 4.29 10^3/uL (3.29-11.43)
--- NOTE | 2023-05-07 00:58 | W.ED.ABDPA2 ---
HPI - Abdominal Pain General: Chief Complaint: Abdominal Pain Stated Complaint: adb pain Time Seen by Provider: 05/07/23 00:24 History of Present Illness: Patient presents to the ER complaining of abdominal pain and nausea with vomiting for the last few hours. Patient has known hernia and has been seen here multiple times for it and has multiple workups including CTs and ultrasounds. Patient says this is the same pain he normally has but this causing nausea vomiting. Review of Systems General: Reports: 10 or more systems reviewed and unremarkable except in HPI and below PFSH ED PFSH: Medical History Acute and chronic respiratory failure with hypoxia Patient under care of multiple providers Hypertensive urgency History of cardiovascular stress test 07/[address] [facility] perfusion imaging probably normal, no reversible defects, small fixed defect in apical anterior wall, EF 54%, nonischemic response to stress by EKG criteria Depression Epididymitis 06/2022 Pulmonary hypertension Uses bilevel positive airway pressure (BPAP) ventilation at home Umbilical hernia History of home oxygen therapy History of coronary angiogram 11/2021 - patent stent Inguinal hernia Anxiety Chronic respiratory failure on home oxygen and bipap Low back pain Nicotine dependence, cigarettes, with other nicotine-induced disorders Generalized anxiety disorder with panic attacks ESRD on dialysis Atherosclerosis of coronary artery Stent and balloon angioplasty to proximal 1 OM branch Chronic abdominal pain COVID 05/25 Hypertensive emergency recurrent episodes Urethral stricture Abdominal ascites history of intermittent paracentesis, transudative fluid; prior work up has included negative biopsy, ceruloplasmin level normal, low iron, high ferritin, normal TIBC, negative HIV, hepatitis panel negative, JESÚS/SCL 70/double-stranded DNA antibodies negative, Alpha-fetoprotein level unremarkable, nonalcoholic by history, has hepatomegaly and splenomegaly Pulmonary embolism 09/21 CTA inconclusive for very tiny peripheral LEFT lower lobe pulmonary artery sub segmental emboli versus poor opacification. Anemia chronic kidney disease Congestive heart failure preserved ejection fraction COPD (chronic obstructive pulmonary disease) Arteriovenous fistula for hemodialysis in place, secondary Degenerative disc disease, lumbar Hypertension uncontrolled Surgical History Stented coronary artery H/O hand surgery Amputation right 2&3 fingers 2017 History of adenoidectomy Family History Other Hypertension Social History Smoking and tobacco/nicotine status: current every day tobacco/nicotine user cigarettes Packs smoked per day: 1.5 Years cigarettes smoked: 21 [ Other cigarette details: started age 20, currently 0.5ppd ] Alcohol intake: never Substance/Drug Use: never Number of children: 3 Current occupational status: disabled Do you think of yourself as: Straight/Heterosexual Physical Exam Const: COMMON NORMALS: no acute distress, average body habitus, patient oriented x3, no limitations, healthy appearing, alert and well nourished HENMT: COMMON NORMALS: normocephalic, atraumatic, hearing grossly normal bilaterally, external ears normal, Normal external nose present, moist oral mucous membranes and oropharynx normal HEAD & SCALP: normocephalic and atraumatic NOSE: Normal external nose present EXTERNAL EAR: Yes external ears normal Neck/C-Spine: COMMON NORMALS: full ROM, no lymphadenopathy, supple, no meningeal signs, no JVD and Thyroid normal THYROID: Thyroid normal Chest: COMMONS NORMALS: normal inspection of the chest and normal palpation of entire chest wall Resp: COMMON NORMALS: normal respiratory effort, No retractions, No use of accessory muscles and clear to auscultation bilaterally AUSCULTATION: clear to auscultation bilaterally Cardio: COMMON NORMALS: no JVD, regular rate, regular rhythm, S1 normal heart sound present, S2 normal heart sound present, No gallops present (Cardio), No clicks present (Cardio), No murmurs present (Cardio) and No rub (Cardio) RATE: regular rate RHYTHM: regular rhythm HEART SOUNDS: S1 normal heart sound present and S2 normal heart sound present GI: COMMON NORMALS: Normal to inspection, nondistended, normoactive bowel sounds present, Soft to palpation, No hepatosplenomegaly present and no masses; negative for non-tender (Diffusely tender, umbilical hernia) PALPATION: Yes Soft to palpation and Yes No hepatosplenomegaly present Neuro: COMMON NORMALS: patient oriented x3 SENSORIUM/ORIENTATION: Yes alert MENINGEAL SIGNS: Yes no meningeal signs Course Vital Signs: Vital signs: Vital Signs Temperature 98.2 F 05/07/23 00:24 Pulse Rate 78 05/07/23 00:24 Respiratory Rate 17 05/07/23 01:28 Blood Pressure 144/83 05/07/23 02:29 Pulse Oximetry 93 05/07/23 02:29 MDM - Abdominal Pain Medical Decision Making Presents to the ER for abdominal pain. Patient was given morphine 4 mg Norflex 60 mg Toradol 60 mg. Lab work was obtained which was benign for the patient. Patient be discharged home with a diagnosis of abdominal hernia and inguinal hernia. Patient should follow-up with his PCP and/or surgeon within next 7 days for further evaluation and treatment. Differential Diagnosis Likely abdominal pain; Unlikely acute appendicitis, calculus of kidney, constipation, diverticulitis, endometriosis, gastroenteritis, pancreatitis or small bowel obstruction Medical Records I reviewed the patient's medical records. Lab Data I reviewed the patient's lab results. 05/07/23 00:45 05/07/23 00:45 Labs/Radiology: Laboratory Results WBC 4.29 10^3/uL (3.29-11.43) 05/07/23 00:45 RBC 3.70 10^6/uL (3.85-5.65) L 05/07/23 00:45 Hgb 9.90 g/dL (11.27-16.99) L 05/07/23 00:45 Hct 30.1 % (37-53) L 05/07/23 00:45 MCV 81.4 fl (82-101) L 05/07/23 00:45 MCH 26.8 pg (27-33) L 05/07/23 00:45 MCHC 32.9 g/dL (30-55) 05/07/23 00:45 RDW 19.5 % (12.1-15.1) H 05/07/23 00:45 Plt Count 188 10^3/cmm (157-399) 05/07/23 00:45 MPV 10.1 fL (7.4-10.4) 05/07/23 00:45 Neut % (Auto) 66.1 % 05/07/23 00:45 Lymph % (Auto) 16.1 % 05/07/23 00:45 Gilchrist % (Auto) 6.8 % 05/07/23 00:45 Eos % (Auto) 8.9 % 05/07/23 00:45 Baso % (Auto) 1.9 % 05/07/23 00:45 Neut # (Auto) 2.84 10^3/uL (1.8-7.7) 05/07/23 00:45 Lymph # (Auto) 0.7 10^3/uL (0.8-4.8) L 05/07/23 00:45 Gilchrist # (Auto) 0.3 10^3/uL (0.2-0.9) 05/07/23 00:45 Eos # (Auto) 0.4 10^3/uL (0.0-0.8) 05/07/23 00:45 Baso # (Auto) 0.1 10^3/uL (0.0-0.1) 05/07/23 00:45 Nucleated RBC % (auto) 0 % 05/07/23 00:45 Nucleated RBCs # 0.0 /100WBC 05/07/23 00:45 Sodium 129 mmol/L (136-145) L 05/07/23 00:45 Potassium 4.4 mmol/L (3.5-5.1) 05/07/23 00:45 Chloride 86 mmol/L (98-107) L 05/07/23 00:45 Carbon Dioxide 30 mmol/L (22-29) H 05/07/23 00:45 Anion Gap 17.4 (5-19) 05/07/23 00:45 BUN 19 mg/dL (6-20) 05/07/23 00:45 Creatinine 6.2 mg/dL (0.7-1.2) H* 05/07/23 00:45 GFR Calculation 10.1 mL/min (90-130) L 05/07/23 00:45 Glucose 91 mg/dL (65-115) 05/07/23 00:45 Calculated Osmolality 270 mOsm/kg (285-295) L 05/07/23 00:45 Calcium 11.1 mg/dL (8.5-10.5) H 05/07/23 00:45 Magnesium 1.8 mg/dL (1.7-2.3) 05/07/23 00:45 Total Bilirubin 0.4 mg/dL (0.15-1.2) 05/07/23 00:45 AST 24 U/L (0-40) 05/07/23 00:45 ALT 7 U/L (0-41) 05/07/23 00:45 Alkaline Phosphatase 128 U/L (40-130) 05/07/23 00:45 Total Protein 7.5 g/dL (6.6-8.7) 05/07/23 00:45 Albumin 3.7 g/dL (3.5-5.2) 05/07/23 00:45 Globulin 3.8 g/dL (1.3-4.6) 05/07/23 00:45 Lipase 23 U/L (13-60) 05/07/23 00:45 All radiology interpretation(s) finalized by discharge Discharge Plan Discharge Patient Disposition: Home Clinical Impression: Inguinal hernia Qualifiers: Obstruction and gangrene presence: without obstruction or gangrene Laterality: unilateral Recurrence: not specified as recurrent Qualified Code(s): K40.90 - Unilateral inguinal hernia, without obstruction or gangrene, not specified as recurrent Hernia, umbilical Qualifiers: Obstruction and gangrene presence: without obstruction or gangrene Qualified Code(s): K42.9 - Umbilical hernia without obstruction or gangrene Condition: Stable Prescriptions: No Action (DME) DME - BIPAP See Rx Instructions .Route .MEDSUPPLY Qty: 1 0RF Rx Instructions: Inspiratory Pressure: 16mmHg Expiratory Pressure: 8 mmHg Will need oxygen bled in to the machine to maintain sats >/= 90%. (DME) DME - Oxygen See Rx Instructions .Route .MEDSUPPLY Qty: 1 0RF Rx Instructions: Supplemental Oxygen bled into BIPAP at 2-3L to maintain oxygen sats at >/= 90%. Auryxia 210 mg iron Tablet See Rx Instructions .ROUTE .COMPLEX Rx Instructions: 420 mg (2 tabs) orally three times a day and 210mg (1 tab) with snacks aspirin 81 mg tablet,delayed release (DR/EC) 81 mg PO DAILY pantoprazole 40 mg tablet,delayed release (DR/EC) 40 mg PO DAILY isosorbide mononitrate 120 mg tablet extended release 24 hr 240 mg PO DAILY RenaPlex-D 800 mcg-12.5 mg -2,000 unit tablet 1 tab PO DAILY losartan 50 mg tablet 100 mg PO DAILY Qty: 60 0RF minoxidil 2.5 mg Tablet 5 mg PO BID Qty: 60 0RF carvedilol 25 mg tablet 37.5 mg PO Q12H clonidine 0.2 mg/24 hr patch weekly 0.2 mg topical Q7D atorvastatin 40 mg tablet 40 mg PO BEDTIME amlodipine 10 mg tablet 10 mg PO DAILY hydralazine 100 mg tablet 100 mg PO Q8H prasugrel 10 mg tablet 10 mg PO DAILY hydrocodone-acetaminophen 5-325 mg tablet 1 tab PO Q8H PRN (Reason: pain) Qty: 7 0RF doxycycline hyclate 100 mg tablet 100 mg PO BID 7 Days Qty: 14 0RF cyanocobalamin (vitamin B-12) 1,000 mcg capsule 1,000 mcg PO DAILY Qty: 30 0RF naloxone 4 mg/actuation spray,non-aerosol 4 mg intranasal PRN PRN (Reason: overdose) Rx Instructions: ADMINISTER 1 SPRAY ( 4 MG ) IN ONE NOSTRIL ( ALTERNATE NOSTRIL WITH EACH DOSE ) EVERY 5 MINUTES NEEDED FOR OPIOID OVERDOSE SYMPTOMS gabapentin 100 mg capsule 100 mg PO DAILY Rx Instructions: 100 mg orally as directed doxycycline hyclate 100 mg tablet 100 mg PO BID Discharge Orders: Discharge ED (Routine); Ordered 05/07/23 Ordered By: Colton Child Referrals: Mal Junior [Primary Care Provider] - 1 week Patient Instructions: Inguinal Hernia (ED), Umbilical Hernia (ED) Activity Restrictions/Additional Instructions: Please follow-up with your surgeon for definitive treatment for your hernias. Coding Level of Care Code ED Electrical Experimental Mechanic for Cristi Diane
[2023-05-07] MEDS: orphenadrine 30 mg/mL Inj 2 mL 60 MG IM (01:08)
[2023-05-07 01:18] LABS: Alanine Aminotransferase 7 U/L (0-41); Albumin Level 3.7 g/dL (3.5-5.2); Alkaline Phosphatase 128 U/L (40-130); Blood Urea Nitrogen 19 mg/dL (6-20); Calcium 11.1 mg/dL (8.5-10.5); Carbon Dioxide 30 mmol/L (22-29); Chloride 86 mmol/L (98-107); Globulin 3.8 g/dL (1.3-4.6); Glomerular Filtration Rate 10.1 mL/min (90-130); Glucose 91 mg/dL (65-115); Lipase 23 U/L (13-60); Magnesium 1.8 mg/dL (1.7-2.3); Osmolality Calculated 270 mOsm/kg (285-295); Sodium 129 mmol/L (136-145); Total Bilirubin 0.4 mg/dL (0.15-1.2); Total Protein 7.5 g/dL (6.6-8.7)
[2023-05-07 01:20] LABS: Anion Gap 17.4 (5-19); Aspartate Amino Transferase 24 U/L (0-40); Potassium 4.4 mmol/L (3.5-5.1)
[2023-05-07 01:28] VITALS: RESP 17
[2023-05-07] MEDS: morphine 4 mg/mL SDV 1 mL IM (01:28)
[2023-05-07 02:20] VITALS: BP 144/83
[2023-05-07 02:29] VITALS: BP 144/83; O2SAT 93
== END 2023-05-07 02:30 | disposition home or self-care (01) ==
PROVIDERS: Emergency Provider Emergency Medicine; PCP Family Medicine
DX: K42.9 Umbilical hernia without obstruction or gangrene (principal); Z79.82 Long term (current) use of aspirin; F17.210 Nicotine dependence, cigarettes, uncomplicated; I13.2 Hypertensive heart and chronic kidney disease with heart failure and with stage 5 chronic kidney disease, or end stage renal disease; N18.6 End stage renal disease; I50.9 Heart failure, unspecified; Z99.2 Dependence on renal dialysis; I25.10 Atherosclerotic heart disease of native coronary artery without angina pectoris; J44.9 Chronic obstructive pulmonary disease, unspecified
CPT/HCPCS: 80053; 83690; 83735; 85025; 96372; 99284; J2270; J2360; J8597

== ENCOUNTER 2023-05-10 16:56 | Emergency (ER) | payer MEDICARE, MEDICAID, SELFPAY ==
[2023-05-10 17:13] VITALS: BP 120/64; PULSE 60; RESP 14; TEMP 36.4; O2SAT 96; BMI 25.0
--- NOTE | 2023-05-10 17:29 | ED_ITS ---
HPI - Abdominal Pain General: Chief Complaint: Abdominal Pain Stated Complaint: groin pain Time Seen by Provider: 05/10/23 17:20 Source: patient Mode of arrival: ambulatory Limitations: no limitations History of Present Illness: 42-year-old male whose very well-known t o the ER he has had a chronic inguinal hernia has been causing the pain he states he has not been able to have anyone do surgery on it due to his multiple medical issues causing chronic pain has been seen multiple times for the pain states pain sharp in nature rates an 8 out of 10 denies any worsening proving factors. Associated Symptoms: Denies chills, diarrhea, dysuria, fever(s), nausea and vomiting Review of Systems Const: Denies: fever(s), chills, body aches or change in appetite ENMT: Denies: throat pain or dental pain Card: Denies: chest pain Resp: Denies: dyspnea GI: Reports: abdominal pain; Denies: nausea, vomiting or diarrhea : Reports: genital pain; Denies: dysuria Musc: Denies: neck pain or back pain Skin/Breast: Denies: rash Neuro: Denies: headache(s) PFSH ED PFSH: Medical History Acute and chronic respiratory failure with hypoxia Patient under care of multiple providers Hypertensive urgency History of cardiovascular stress test 07/2022 at [facility] perfusion imaging probably normal, no reversible defects, small fixed defect in apical anterior wall, EF 54%, nonischemic response to stress by EKG criteria Depression Epididymitis 06/2022 Pulmonary hypertension Uses bilevel positive airway pressure (BPAP) ventilation at home Umbilical hernia History of home oxygen therapy History of coronary angiogram 11/2021 - patent stent Inguinal hernia Anxiety Chronic respiratory failure on home oxygen and bipap Low back pain Nicotine dependence, cigarettes, with other nicotine-induced disorders Generalized anxiety disorder with panic attacks ESRD on dialysis Atherosclerosis of coronary artery Stent and balloon angioplasty to proximal 1 OM branch Chronic abdominal pain COVID 05/25 Hypertensive emergency recurrent episodes Urethral stricture Abdominal ascites history of intermittent paracentesis, transudative fluid; prior work up has included negative biopsy, ceruloplasmin level normal, low iron, high ferritin, normal TIBC, negative HIV, hepatitis panel negative, JESÚS/SCL 7 0/double-stranded DNA antibodies negative, Alpha-fetoprotein level unremarkable, nonalcoholic by history, has hepatomegaly and splenomegaly Pulmonary embolism 09/21 CTA inconclusive for very tiny peripheral LEFT lower lobe pulmonary artery sub segmental emboli versus poor opacification. Anemia chronic kidney disease Congestive heart failure preserved ejection fraction COPD (chronic obstructive pulmonary disease) Arteriovenous fistula for hemodialysis in place, secondary Degenerative disc disease, lumbar Hypertension uncontrolled Surgical History Stented coronary artery H/O hand surgery Amputation right 2&3 fingers 2017 History of adenoidectomy Family History Other Hypertension Social History Smoking and tobacco/nicotine status: current every day tobacco/nicotine user cigarettes Packs smoked per day: 1.5 Years cigarettes smoked: 21 [ Other cigarette details: started age 20, currently 0.5ppd ] Alcohol intake: never Substance/Drug Use: never Number of children: 3 Current occupational status: disabled Do you think of yourself as: Straight/Heterosexual Physical Exam Const: COMMON NORMALS: no acute distress, patient oriented x3 and healthy appearing HENMT: COMMON NORMALS: normocephalic and atraumatic HEAD & SCALP: normocephalic and atraumatic Neck/C-Spine: COMMON NORMALS: full ROM and supple Chest: COMMONS NORMALS: normal inspection of the chest Resp: COMMON NORMALS: normal respiratory effort Cardio: COMMON NORMALS: regular rate, regular rhythm and No murmurs present (Cardio) RATE: regular rate RHYTHM: regular rhythm GI: COMMON NORMALS: Normal to inspection, nondistended, normoactive bowel sounds present, Soft to palpation, non-tender and no masses PALPATION: Yes Soft to palpation : OTHER: large ingunal hernia Extremity: COMMON NORMALS: normal to inspection and full ROM Neuro: COMMON NORMALS: patient oriented x3, moves all extremities and no focal motor deficits Psych: COMMON NORMALS: mental status grossly normal, Normal thought process present and cooperative THOUGHT PROCESS: Normal thought process present Skin: COMMON NORMALS: no rashes or lesions noted and no wounds GENERAL SKIN EXAM: no rashes or lesions noted Course Vital Signs: Vital signs: Vital Signs Temperature 97.6 F 05/10/23 17:13 Pulse Rate 60 05/10/23 17:13 Respiratory Rate 14 01/07/24 17:13 Blood Pressure 120/64 05/10/23 17:13 Pulse Oximetry 96 05/10/23 17:13 Oxygen Delivery Me thod Room Air 05/10/23 17:13 MDM - Abdominal Pain Medical Decision Making Patient presents here with abdominal groin pain from an inguinal hernia been seen here multiple times for the past he is to follow-up with surgeon return if worsening he understands agrees to plan. No radiology studies performed this visit Discharge Plan Discharge Patient Disposition: Home Clinical Impression: Inguinal hernia Condition: Stable Prescriptions: No Action (DME) DME - BIPAP See Rx Instructions .Route .MEDSUPPLY Qty: 1 0RF Rx Instructions: Inspiratory Pressure: 16mmHg Expiratory Pressure: 8 mmHg Will need oxygen bled in to the machine to maintain sats >/= 90%. (DME) DME - Oxygen See Rx Instructions .Route .MEDSUPPLY Qty: 1 0RF Rx Instructions: Supplemental Oxygen bled into BIPAP at 2-3L to maintain oxygen sats at >/= 90%. Auryxia 210 mg iron Tablet See Rx Instructions .ROUTE .COMPLEX Rx Instructions: 420 mg (2 tabs) orally three times a day and 210mg (1 tab) with snacks aspirin 81 mg tablet,delayed release (DR/EC) 81 mg PO DAILY pantoprazole 40 mg tablet,delayed release (DR/EC) 40 mg PO DAILY isosorbide mononitrate 120 mg tablet extended release 24 hr 240 mg PO DAILY RenaPlex-D 800 mcg-12.5 mg -2,000 unit tablet 1 tab PO DAILY losartan 50 mg tablet 100 mg PO DAILY Qty: 60 0RF minoxidil 2.5 mg Tablet 5 mg PO BID Qty: 60 0RF carvedilol 25 mg tablet 37.5 mg PO Q12H clonidine 0.2 mg/24 hr patch weekly 0.2 mg topical Q7D atorvastatin 40 mg tablet 40 mg PO BEDTIME amlodipine 10 mg tablet 10 mg PO DAILY hydralazine 100 mg tablet 100 mg PO Q8H prasugrel 10 mg tablet 10 mg PO DAILY hydrocodone-acetaminophen 5-325 mg tablet 1 tab PO Q8H PRN (Reason: pain) Qty: 7 0RF cyanocobalamin (vitamin B-12) 1,000 mcg capsule 1,000 mcg PO DAILY Qty: 30 0RF naloxone 4 mg/actuation spray,non-aerosol 4 mg intranasal PRN PRN (Reason: overdose) Rx Instructions: ADMINISTER 1 SPRAY ( 4 MG ) IN ONE NOSTRIL ( ALTERNATE NOSTRIL WITH EACH DOSE ) EVERY 5 MINUTES NEEDED FOR OPIOID OVERDOSE SYMPTOMS gabapentin 100 mg capsule 100 mg PO DAILY Rx Instructions: 100 mg orally as directed doxycycline hyclate 100 mg tablet 100 mg PO BID Discharge Orders: Discharge ED (Routine); Ordered 05/10/23 Ordered By: Dayana Nunez Referrals: Mal Junior [Primary Care Provider] - Discharge Diet: Advance as tolerated Discharge Activity: Resume usual activity Patient Instructions: Inguinal Hernia (ED) Coding Level of Care Code ED Solvent Plant Treater for Cristi Diane
[2023-05-10] MEDS: HYDROcodone-acetaminophen 7.5-325 mg Tablet 1 TAB PO (17:32)
== END 2023-05-10 17:38 | disposition home or self-care (01) ==
PROVIDERS: Emergency Provider Emergency Medicine; PCP Family Medicine
DX: K40.90 Unilateral inguinal hernia, without obstruction or gangrene, not specified as recurrent (principal); Z79.82 Long term (current) use of aspirin; I13.2 Hypertensive heart and chronic kidney disease with heart failure and with stage 5 chronic kidney disease, or end stage renal disease; N18.6 End stage renal disease; I50.9 Heart failure, unspecified; Z99.2 Dependence on renal dialysis; J44.9 Chronic obstructive pulmonary disease, unspecified; F17.210 Nicotine dependence, cigarettes, uncomplicated
CPT/HCPCS: 99283

== ENCOUNTER → 2023-05-20 12:45 | Day surgery (SDC) | payer MEDICARE, MEDICAID, SELFPAY ==
[2023-05-20 12:50] VITALS: BP 137/83; PULSE 68; RESP 6; TEMP 36.6; O2SAT 93
--- NOTE | 2023-05-20 13:03 | US_ITS ---
WS: [id number] ULTRASOUND-GUIDED PARACENTESIS CLINICAL INFORMATION: cirrhosis of liver without ascites, unspecified hepatic COMPARISON: None. Procedure Informed consent: The risks, benefits, and alternatives of the procedure were discussed with the mariah ent. Verbal and written consent was obtained. Timeout: A timeout was performed to confirm the correct patient, procedure, and site. Preparation: A suitable skin site was identified. The patient was prepped and draped in usual sterile fashion. Lidocaine 1% was used for local anesthesia. Catheter: 4 Kazakh One-step Scalent Systemseh catheter. Side: LEFT lower quadrant. Fluid Volume: 4000 ml Color: Clear yellow DISPOSITION: Discarded safely. Complications: None. Patient disposition: Discharged from the department in stable condition. IMPRESSION: Uncomplicated ultrasound-guided paracentesis. Removal of 4000 cc
[2023-05-20 14:41] LABS: Cyto Order Verification Order Verified
[2023-05-20 15:15] LABS: Albumin Peritoneal Fluid 2.6 g/dL; Total Protein Body Fluid 4.7 g/dL
== END ==
LOC: GILAB 12:47
PROVIDERS: Radiology Neuroradiology; PCP Family Medicine; Visit Provider Nurse Practitioner Family
PROC: (CPT 49082; principal; 2023-05-20 13:30)
DX: K74.60 Unspecified cirrhosis of liver (principal); R18.8 Other ascites
CPT/HCPCS: 49083; 80503; 82042; 84157; 87070; 87075; 87205; 88112; 88305

== ENCOUNTER 2023-05-24 00:54 | Inpatient (IN) | payer MEDICARE, MEDICAID, SELFPAY ==
[2023-05-24] VITALS (20 sets, daily range): BP systolic 108–167; BP diastolic 51–89; PULSE 62–92; RESP 14–26; TEMP 36.4–37; O2SAT 90–97; BMI 25.0
[2023-05-24] MEDS: morphine 4 mg/mL SDV 1 mL IVP (01:18)
[2023-05-24] MEDS: ondansetron 2 mg/ML SDV 2 mL 4 MG IVP ×2 (01:18→21:55)
--- NOTE | 2023-05-24 01:18 | ED_ITS ---
HPI - Abdominal Pain 2 General: Chief Complaint: Abdominal Pain Stated Complaint: stomach and groin pain Time Seen by Provider: 05/24/23 00:58 Source: patient Mode of arrival: ambulatory Limitations: no limitations History of Present Illness: 42-year-old male that is very well-known to the ER has a history of chronic kidney disease he is on dialysis. He has chronic abdominal pain he states he has been having pain for weeks he has been seen here multiple times for that. States his pain is diffuse in nature he states he is also missed his dialysis today. Denies any vomiting or diarrhea. Associated Symptoms: Denies chills, diarrhea, fever(s), nausea and vomiting Review of Systems 2 Const: Denies: fever(s), chills, body aches or change in appetite Eyes: Denies: blurry vision or eye discomfort ENMT: Denies: throat pain or dental pain Card: Denies: chest pain Resp: Denies: dyspnea GI: Reports: abdominal pain; Denies: nausea, vomiting or diarrhea Musc: Denies: neck pain or back pain Skin/Breast: Denies: rash Neuro: Denies: headache(s) PFSH ED 2 PFSH: Medical History Acute and chronic respiratory failure with hypoxia Patient under care of multiple providers Hypertensive urgency History of cardiovascular stress test 07/2022 at [facility] perfusion imaging probably normal, no reversible defects, small fixed defect in apical anterior wall, EF 54%, nonischemic response to stress by EKG criteria Depression Epididymitis 06/2022 Pulmonary hypertension Uses bilevel positive airway pressure (BPAP) ventilation at home Umbilical hernia History of home oxygen therapy History of coronary angiogram 11/2021 - patent stent Inguinal hernia Anxiety Chronic respiratory failure on home oxygen and bipap Low back pain Nicotine dependence, cigarettes, with other nicotine-induced disorders Generalized anxiety disorder with panic attacks ESRD on dialysis Atherosclerosis of coronary artery Stent and balloon angioplasty to proximal 1 OM branch Chronic abdominal pain COVID 05/25 Hypertensive emergency recurrent episodes Urethral stricture Abdominal ascites history of intermittent paracentesis, transudative fluid; prior work up has included negative biopsy, ceruloplasmin level normal, low iron, high ferritin, normal TIBC, negative HIV, hepatitis panel negative, JESÚS/SCL 70/double-stranded DNA antibodies negative, Alpha-fetoprotein level unremarkable, nonalcoholic by history, has hepatomegaly and splenomegaly Pulmonary embolism 09/21 CTA inconclusive for very tiny peripheral LEFT lower lobe pulmonary artery sub segmental emboli versus poor opacification. Anemia chronic kidney disease Congestive heart failure preserved ejection fraction COPD (chronic obstructive pulmonary disease) Arteriovenous fistula for hemodialysis in place, secondary Degenerative disc disease, lumbar Hypertension uncontrolled Surgical History Stented coronary artery H/O hand surgery Amputation right 2&3 fingers 2017 History of adenoidectomy Family History Other Hypertension Social History Smoking and tobacco/nicotine status: current every day tobacco/nicotine user cigarettes Packs smoked per day: 1.5 Years cigarettes smoked: 21 [ Other cigarette details: started age 20, currently 0.5ppd ] Alcohol intake: never Substance/Drug Use: never Number of children: 3 Current occupational status: disabled Do you think of yourself as: Straight/Heterosexual Physical Exam 2 Const: COMMON NORMALS: no acute distress, patient oriented x3 and healthy appearing HENMT: COMMON NORMALS: normocephalic and atraumatic HEAD & SCALP: n ormocephalic and atraumatic Eye: COMMON NORMALS: Equal, round and reactive pupils present and EOMs intact bilaterally PUPIL: Yes Equal, round and reactive pupils present Neck/C-Spine: COMMON NORMALS: full ROM and supple Chest: COMMONS NORMALS: normal inspection of the chest and normal palpation of entire chest wall Resp: COMMON NORMALS: normal respiratory effort, No retractions, No use of accessory muscles and clear to auscultation bilaterally AUSCULTATION: clear to auscultation bilaterally Cardio: COMMON NORMALS: regular rate, regular rhythm and No murmurs present (Cardio) RATE: regular rate RHYTHM: regular rhythm GI: COMMON NORMALS: Normal to inspection, nondistended, normoactive bowel sounds present, Soft to palpation, non-tender and no masses PALPATION: Yes Soft to palpation Extremity: COMMON NORMALS: normal to inspection and full ROM Neuro: COMMON NORMALS: patient oriented x3, moves all extremities and no focal motor deficits Psych: COMMON NORMALS: mental status grossly normal, Normal thought process present and cooperative THOUGHT PROCESS: Normal thought process present Skin: COMMON NORMALS: no rashes or lesions noted and no wounds GENERAL SKIN EXAM: no rashes or lesions noted Course 2 Vital Signs: Vital signs: Vital Signs Temperature 97.6 F 05/24/23 01:03 Pulse Rate 70 05/24/23 01:03 Respiratory Rate 26 H 05/24/23 01:03 Blood Pressure 147/70 05/24/23 01:03 Pulse Oximetry 94 05/24/23 01:03 Oxygen Delivery Me thod Room Air 05/24/23 01:03 MDM - Abdominal Pain Medical Decision Making Patient presents here with hyperkalemia likely due to missed dialysis he has chronic abdominal pain he also has hyponatremia spoke to the hospitalist will admit at this time. Medical Records I reviewed the patient's medical records. Lab Data I reviewed the patient's lab results. 05/24/23 01:20 05/24/23 01:20 Labs/Radiology: Radiology Impressions Chest X-Ray 05/24/23 02:41 IMPRESSION: Suspect mild hazy pulmonary edema changes in the lungs similar to comparison imaging. Laboratory Results WBC 4.25 10^3/uL (3.29-11.43) 05/24/23 01:20 RBC 3.69 10^6/uL (3.85-5.65) L 05/24/23 01:20 Hgb 10.20 g/dL (11.27-16.99) L 05/24/23 01:20 Hct 30.5 % (37-53) L 05/24/23 01:20 MCV 82.7 fl (82-101) 05/24/23 01:20 MCH 27.6 pg (27-33) 05/24/23 01:20 MCHC 33.4 g/dL (30-55) 05/24/23 01:20 RDW 20.5 % (12.1-15.1) H 05/24/23 01:20 Plt Count 168 10^3/cmm (157-399) 05/24/23 01:20 MPV 9.9 fL (7.4-10.4) 05/24/23 01:20 Neut % (Auto) 71.3 % 05/24/23 01:20 Lymph % (Auto) 12.0 % 05/24/23 01:20 [place] % (Auto) 6.1 % 05/24/23 01:20 Eos % (Auto) 8.2 % 05/24/23 01:20 Baso % (Auto) 1.9 % 05/24/23 01:20 Neut # (Auto) 3.03 10^3/uL (1.8-7.7) 05/24/23 01:20 Lymph # (Auto) 0.5 10^3/uL (0.8-4.8) L 05/24/23 01:20 [place] # (Auto) 0.3 10^3/uL (0.2-0.9) 05/24/23 01:20 Eos # (Auto) 0.4 10^3/uL (0.0-0.8) 05/24/23 01:20 Baso # (Auto) 0.1 10^3/uL (0.0-0.1) 05/24/23 01:20 Nucleated RBC % (auto) 0 % 05/24/23 01:20 Nucleated RBCs # 0.0 /100WBC 05/24/23 01:20 PT 16.50 SECONDS (12.1-14.9) H 05/24/23 01:20 INR 1.29 (0.8-1.2) H 05/24/23 01:20 Sodium 125 mmol/L (136-145) L 05/24/23 01:20 Potassium 6.0 mmol/L (3.5-5.1) H 05/24/23 01:20 Chloride 87 mmol/L (98-107) L 05/24/23 01:20 Carbon Dioxide 24 mmol/L (22-29) 05/24/23 01:20 Anion Gap 20.0 (5-19) H 05/24/23 01:20 BUN 51 mg/dL (6-20) H 05/24/23 01:20 Creatinine 10.4 mg/dL (0.7-1.2) H* 05/24/23 01:20 GFR Calculation 5.5 mL/min (90-130) L 05/24/23 01:20 Glucose 58 mg/dL (65-115) L 05/24/23 01:20 Calculated Osmolality 271 mOsm/kg (285-295) L 05/24/23 01:20 Lactic Acid 0.5 mmol/L (0.5-2.2) 05/24/23 01:20 Calcium 10.5 mg/dL (8.5-10.5) 05/24/23 01:20 Total Bilirubin 0.5 mg/dL (0.15-1.2) 05/24/23 01:20 AST 19 U/L (0-40) 05/24/23 01:20 ALT 6 U/L (0-41) 05/24/23 01:20 Alkaline Phosphatase 98 U/L (40-130) 05/24/23 01:20 Total Protein 7.1 g/dL (6.6-8.7) 05/24/23 01:20 Albumin 3.4 g/dL (3.5-5.2) L 05/24/23 01:20 Globulin 3.7 g/dL (1.3-4.6) 05/24/23 01:20 Lipase 14 U/L (13-60) 05/24/23 01:20 XR interpretation done by ED provider, pending radiology final review Critical Care Time 2 Critical Care Time: Critical Care Time: Yes Total Critical Care Time: 40 Attestation: The high probability of a clinically significant, sudden or life threatening deterioration of the patient's renal system(s) required my full and direct attention, intervention and personal management. The critical care time is as shown. This time is in addition to time spent performing any reported procedures but includes the following: [x] Data and vital sign review and interpretation [x] Patient assessment, examination and intervention [x] Documentation [x] Medication orders and management Discharge Plan Discharge Patient Disposition: Admitted As Inpatient Clinical Impression: End-stage renal disease on hemodialysis, Abdominal ascites, Acute hyperkalemia, Acute hyponatremia Condition: Stable Prescriptions: No Action (DME) DME - BIPAP See Rx Instructions .Route .MEDSUPPLY Qty: 1 0RF Rx Instructions: Inspiratory Pressure: 16mmHg Expiratory Pressure: 8 mmHg Will need oxygen bled in to the machine to maintain sats >/= 90%. (DME) DME - Oxygen See Rx Instructions .Route .MEDSUPPLY Qty: 1 0RF Rx Instructions: Supplemental Oxygen bled into BIPAP at 2-3L to maintain oxygen sats at >/= 90%. Auryxia 210 mg iron Tablet See Rx Instructions .ROUTE .COMPLEX Rx Instructions: 420 mg (2 tabs) orally three times a day and 210mg (1 tab) with snacks aspirin 81 mg tablet,delayed release (DR/EC) 81 mg PO DAILY pantoprazole 40 mg tablet,delayed release (DR/EC) 40 mg PO DAILY isosorbide mononitrate 120 mg tablet extended release 24 hr 240 mg PO DAILY RenaPlex-D 800 mcg-12.5 mg -2,000 unit tablet 1 tab PO DAILY losartan 50 mg tablet 100 mg PO DAILY Qty: 60 0RF carvedilol 25 mg tablet 37.5 mg PO Q12H clonidine 0.2 mg/24 hr patch weekly 0.2 mg topical Q7D atorvastatin 40 mg tablet 40 mg PO BEDTIME amlodipine 10 mg tablet 10 mg PO DAILY hydralazine 100 mg tablet 100 mg PO Q8H prasugrel 10 mg tablet 10 mg PO DAILY cyanocobalamin (vitamin B-12) 1,000 mcg capsule 1,000 mcg PO DAILY Qty: 30 0RF naloxone 4 mg/actuation spray,non-aerosol 4 mg intranasal PRN PRN (Reason: overdose) Rx Instructions: ADMINISTER 1 SPRAY ( 4 MG ) IN ONE NOSTRIL ( ALTERNATE NOSTRIL WITH EACH DOSE ) EVERY 5 MINUTES NEEDED FOR OPIOID OVERDOSE SYMPTOMS doxycycline hyclate 100 mg tablet 100 mg PO BID Patient Comments: pt states he has not picked up this medication yet 05/20/23 ondansetron 4 mg tablet,disintegrating 4 mg translingual Q8H PRN (Reason: Nausea And Vomiting) minoxidil 2.5 mg tablet 10 mg PO TID Referrals: Mal Junior [Primary Care Provider] - Coding Level of Care Code ED Boat Deckhand for Cristi Diane
[2023-05-24 01:27] LABS: Basophils # 0.1 10^3/uL (0.0-0.1); Basophils % 1.9 %; Eosinophils # 0.4 10^3/uL (0.0-0.8); Eosinophils % 8.2 %; Hematocrit 30.5 % (37-53); Lymphocytes # 0.5 10^3/uL (0.8-4.8); Mean Corpuscular HGB Conc 33.4 g/dL (30-55); Mean Corpuscular Hemoglobin 27.6 pg (27-33); Mean Corpuscular Volume 82.7 fl (82-101); Mean Platelet Volume 9.9 fL (7.4-10.4); Monocytes # 0.3 10^3/uL (0.2-0.9); Monocytes % 6.1 %; Neutrophils # 3.03 10^3/uL (1.8-7.7); Neutrophils % 71.3 %; Nucleated Red Blood Cells % 0 %; Platelet Count 168 10^3/cmm (157-399); Red Blood Count 3.69 10^6/uL (3.85-5.65); Red Cell Distribution Width 20.5 % (12.1-15.1); White Blood Count 4.25 10^3/uL (3.29-11.43)
[2023-05-24 01:48] LABS: Alanine Aminotransferase 6 U/L (0-41); Albumin Level 3.4 g/dL (3.5-5.2); Alkaline Phosphatase 98 U/L (40-130); Blood Urea Nitrogen 51 mg/dL (6-20); Calcium 10.5 mg/dL (8.5-10.5); Carbon Dioxide 24 mmol/L (22-29); Chloride 87 mmol/L (98-107); Globulin 3.7 g/dL (1.3-4.6); Glomerular Filtration Rate 5.5 mL/min (90-130); Glucose 58 mg/dL (65-115); Lipase 14 U/L (13-60); Osmolality Calculated 271 mOsm/kg (285-295); Sodium 125 mmol/L (136-145); Total Bilirubin 0.5 mg/dL (0.15-1.2); Total Protein 7.1 g/dL (6.6-8.7)
[2023-05-24 01:57] LABS: Aspartate Amino Transferase 19 U/L (0-40)
--- NOTE | 2023-05-24 02:02 | ECG_ITS ---
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 Measurements Intervals [place] Rate: 59 P: 72 ND: 250 QRS: 91 QRSD: 137 T: 83 QT: 441 QTc: 439 Interpretive Statements SINUS BRADYCARDIA WITH FIRST DEGREE AV BLOCK BORDERLINE RIGHT AXIS DEVIATION [QRS AXIS > 90] INTRAVENTRICULAR CONDUCTION DELAY [130+ ms QRS DURATION] SEPTAL MYOCARDIAL INFARCTION , OF INDETERMINATE AGE [40+ ms Q WAVE IN V1/V2] Compared to ECG 01/12/2023 05:29:35 First degree AV block now present Myocardial infarct finding now present Sinus rhythm no longer present T-wave abnormality no longer present Prolonged QT interval no longer present Electronically Signed On 05-24-2023 8:33:35 MARKETING SERVICES MANAGER by Bharathi Markham M.D. [id number]
--- NOTE | 2023-05-24 02:36 | CTR_ITS ---
PROCEDURE INFORMATION: Exam: CT Abdomen And Pelvis Without Contrast Exam date and time: 05/24/2023 2:50 AM Age: 42 years old Clinical indication: Abdominal pain; Generalized; Prior surgery; Surgery date: 6+ months; Surgery type: Coronary stents; Patient HX: C/O diffuse abd and RT groin pain. PT is end stage renal disease with chronic ascities and RT hydrocele due to inguinal hernia. ; Additional info: Abdominal pain' TECHNIQUE: Imaging protocol: Computed tomography of the abdomen and pelvis without contrast. Radiation optimization: All CT scans at this facility use at least one of these dose optimization techniques: automated exposure control; mA and/or kV adjustment per patient size (includes targeted exams where dose is matched to clinical indication); or iterative reconstruction. COMPARISON: CT abdomen pelvis w con* [id number] 04/12/2023 2:05 AM RADIATION DOSE METRICS: Total DLP (mGy-cm): 777.03 FINDINGS: Heart: Multichamber cardiac dilation. Small volume pericardial effusion. Liver: Hepatomegaly. Gallbladder and bile ducts: Stones or sludge layer dependently in the gallbladder lumen. Negative wall thickening. Negative for biliary system dilation. Pancreas: Normal. No ductal dilation. Spleen: Mild severity splenomegaly stable in size from prior. Adrenal glands: Normal. No mass. Kidneys and ureters: End-stage renal atrophy changes. Stomach and bowel: Unremarkable. No obstruction. No mucosal thickening. Appendix: Unremarkable appendix. Intraperitoneal space: Large volume ascites. Vasculature: Diffuse calcified plaques throughout abdominal aorta. Negative for aneurysm. Lymph nodes: Unremarkable. No enlarged lymph nodes. Urinary bladder: Decompressed bladder. Reproductive: Large right scrotum hydrocele partially assessed. Bones/joints: Unremarkable. No acute fracture. Soft tissues: Umbilical hernia. Large right inguinal hernia. CT/CT abdomen pelvis wo con [id number] IMPRESSION: Negative for acute abdominopelvic pathology.
--- NOTE | 2023-05-24 02:36 | ECG_ITS ---
[facility] Test Date: 2023-05-24 Pat Name: Mal Gibbs Department: Room: Gender: Male Client Reporting Associate: : 1980 Requested By: Tunde Umana Order Number: [id number] Mohini MD: Bharathi Markham M.D. Measurements Intervals [place] Rate: 62 P: 78 DC: 248 QRS: 108 QRSD: 130 T: 67 QT: 432 QTc: 440 Interpretive Statements SINUS RHYTHM WITH FIRST DEGREE AV BLOCK RIGHT AXIS DEVIATION [QRS AXIS > 100] SEPTAL MYOCARDIAL INFARCTION , PROBABLY OLD [40+ ms Q WAVE IN V1/V2] Compared to ECG 05/24/2023 02:08:53 Sinus bradycardia no longer present Intraventricular conduction delay no longer present Myocardial infarct finding still present Electronically Signed On 05-24-2023 8:33:46 ROLL UP MACHINE OPERATOR by Bharathi Markham M.D. [id number]
--- NOTE | 2023-05-24 02:41 | XRR_ITS ---
PROCEDURE INFORMATION: Exam: XR Chest Exam date and time: 05/24/2023 2:44 AM Age: 42 years old Clinical indication: Shortness of breath; Prior surgery; Surgery date: 6+ months; Surgery type: Coronary stents; Patient HX: C/O SOB; Additional info: Fluid overload TECHNIQUE: Imaging protocol: Radiologic exam of the chest. Views: 1 view. COMPARISON: CR XR chest 1V portable [id number] 02/14/2023 5:46 PM FINDINGS: Lungs: Linear platelike subsegmental atelectasis changes in the upper left lung are new from comparison. Pleural spaces: Unremarkable. No pleural effusion. No pneumothorax. Heart/Mediastinum: Enlarged cardiomediastinal contour is unchanged from comparison imaging. There is generalized mild hazy pulmonary opacities bilaterally similar to the comparison. Bones/joints: Unremarkable. XR/XR chest 1V portable [id number] IMPRESSION: Suspect mild hazy pulmonary edema changes in the lungs similar to comparison imaging.
--- NOTE | 2023-05-24 02:48 | P.HP_ITS ---
Providers/Chief Complaint 2 Primary Care Provider: Mal Junior Chief Complaint: stomach and groin pain History of Present Illness Mal Gibbs is a 42 year old male with a past medical history of chronic respiratory failure, end-stage renal disease on dialysis, liver cirrhosis requiring recurrent paracentesis last paracentesis was Thursday with 4 L taken off, hypertension, hyperlipidemia, who presents to [facility] as he missed dialysis today, and abdominal pain. Patient tells me that he had a paracentesis on Thursday, took 4 L off and he continues to have abdominal distention, diffuse pain, no fevers, chills, nausea, vomiting, he is having adequate bowel movements no blood or black stools. He missed dialysis today, has generalized anasarca, currently on room air denies any shortness of breath, no chest pain, no palpitations, has a history of hypercarbic respiratory failure secondary to fluid overload, after missing dialysis. On examination his abdomen is distended, fluid wave present, has an umbilical hernia present, which was reducible, no overlying skin changes, diffusely tender, he was found to have hyperkalemia in the emergency room, given calcium, insulin, D50, EKG showing sinus bradycardia, first-degree AV block, T wave inversion in V6 Review of Systems 2 Const: Denies: fever(s) or chills Card: Denies: chest pain Resp: Denies: dyspnea GI: Reports: abdominal pain; Denies: nausea or vomiting Medications/Allergies Home Medications Medication Instructions Recorded Confirmed Last Taken Type ferric citrate 210 mg iron tablet See Rx Instructions .Route .COMPLEX 11/03/21 05/19/23 05/20/23 History (Auryxia) aspirin 81 mg tablet,delayed 81 mg PO DAILY 02/21/22 05/19/23 05/20/23 History release pantoprazole 40 mg tablet,delayed 40 mg PO DAILY 02/21/22 05/19/23 05/20/23 History release DME - BIPAP #1 ea 02/25/22 05/05/23 05/05/23 Rx DME - Oxygen #1 ea 02/25/22 05/05/23 05/05/23 Rx cyanocobalamin (vitamin B-12) 1,000 mcg PO DAILY #30 caps 08/07/22 05/20/23 05/20/23 Rx 1,000 mcg capsule isosorbide mononitrate 120 mg 240 mg PO DAILY 10/01/22 05/19/23 05/20/23 History tablet,extended release 24 hr vit B,C-folic ac 800 mcg-zinc 12.5 1 tab PO DAILY 10/01/22 05/19/23 05/20/23 History mg-selen-D3 2,000 unit-vit E tablet (RenaPlex-D) losartan 50 mg tablet 100 mg (2 x 50 mg) PO DAILY #60 10/04/22 05/20/23 05/19/23 Rx tabs amlodipine 10 mg tablet 10 mg PO DAILY 01/09/23 05/19/23 05/19/23 History atorvastatin 40 mg tablet 40 mg PO BEDTIME 01/09/23 05/19/23 05/19/23 History carvedilol 25 mg tablet 37.5 mg PO Q12H 01/09/23 05/19/23 05/20/23 History clonidine 0.2 mg/24 hr weekly 0.2 mg topical Q7D 01/09/23 05/20/23 04/20/23 History transdermal patch hydralazine 100 mg tablet 100 mg PO Q8H 01/09/23 05/19/23 05/20/23 History prasugrel 10 mg tablet 10 mg PO DAILY 01/09/23 05/19/23 05/20/23 History naloxone 4 mg/actuation nasal spray 4 mg intranasal PRN PRN overdose 01/12/23 05/19/23 03/10/23 History doxycycline hyclate 100 mg tablet 100 mg PO BID 02/15/23 05/20/23 05/05/23 History minoxidil 2.5 mg tablet 10 mg PO TID 05/19/23 05/19/23 05/20/23 History ondansetron 4 mg disintegrating 4 mg translingual Q8H PRN Nausea 05/19/23 05/20/23 05/19/23 History tablet And Vomiting Allergies Allergy/AdvReac Type Severity Reaction Status Date / Time spironolactone Allergy Intermediate facial Verified 05/20/23 13:02 swelling lisinopril Allergy ADR-Swelling Verified 05/20/23 13:02 of the Eye nifedipine Allergy ALGY-Swell Verified 05/20/23 13:02 Lip/Tongue/Throat PFSH Acute 2 PFSH: Medical History Acute and chronic respiratory failure with hypoxia Patient under care of multiple providers Hypertensive urgency History of cardiovascular stress test 07/2022 at [facility] perfusion imaging probably normal, no reversible defects, small fixed defect in apical anterior wall, EF 54%, nonischemic response to stress by EKG criteria Depression Epididymitis 06/2022 Pulmonary hypertension Uses bilevel positive airway pressure (BPAP) ventilation at home Umbilical hernia History of home oxygen therapy History of coronary angiogram 11/2021 - patent stent Inguinal hernia Anxiety Chronic respiratory failure on home oxygen and bipap Low back pain Nicotine dependence, cigarettes, with other nicotine-induced disorders Generalized anxiety disorder with panic attacks ESRD on dialysis Atherosclerosis of coronary artery Stent and balloon angioplasty to proximal 1 OM branch Chronic abdominal pain COVID 05/25 Hypertensive emergency recurrent episodes Urethral stricture Abdominal ascites history of intermittent paracentesis, transudative fluid; prior work up has included negative biopsy, ceruloplasmin level normal, low iron, high ferritin, normal TIBC, negative HIV, hepatitis panel negative, JESÚS/SCL 70/double-stranded DNA antibodies negative, Alpha-fetoprotein level unremarkable, nonalcoholic by history, has hepatomegaly and splenomegaly Pulmonary embolism 09/21 CTA inconclusive for very tiny peripheral LEFT lower lobe pulmonary artery sub segmental emboli versus poor opacification. Anemia chronic kidney disease Congestive heart failure preserved ejection fraction COPD (chronic obstructive pulmonary disease) Arteriovenous fistula for hemodialysis in place, secondary Degenerative disc disease, lumbar Hypertension uncontrolled Surgical History Stented coronary artery H/O hand surgery Amputation right 2&3 fingers 2017 History of adenoidectomy Family History Other Hypertension Social History Smoking and tobacco/nicotine status: current every day tobacco/nicotine user cigarettes Packs smoked per day: 1.5 Years cigarettes smoked: 21 [ Other cigarette details: started age 20, currently 0.5ppd ] Alcohol intake: never Substance/Drug Use: never Number of children: 3 Current occupational status: disabled Do you think of yourself as: Straight/Heterosexual Vitals/I&O/Wt Last Vital Signs Temp 97.6 F 05/24/23 01:03 Pulse 70 05/24/23 01:03 Resp 26 H 05/24/23 01:03 BP 147/70 05/24/23 01:03 Pulse Ox 94 05/24/23 01:03 O2 Del Method Room Air 05/24/23 01:03 Weight last 48 hrs Weight 86.183 kg Physical Exam 2 Const: COMMON NORMALS: no acute distress and patient oriented x3 HENMT: COMMON NORMALS: normocephalic HEAD & SCALP: normocephalic Eye: COMMON NORMALS: Equal, round and reactive pupils present and EOMs intact bilaterally Neck/C-Spine: COMMON NORMALS: no JVD Lymph: LYMPHATIC: no lymphadenopathy noted Chest: COMMONS NORMALS: normal inspection of the chest Resp: COMMON NORMALS: normal respiratory effort, No retractions, No use of accessory muscles and clear to auscultation bilaterally AUSCULTATION: clear to auscultation bilaterally Cardio: COMMON NORMALS: regular rate, regular rhythm, S1 normal heart sound present and S2 normal heart sound present RATE: regular rate RHYTHM: r egular rhythm HEART SOUNDS: S1 normal heart sound present and S2 normal heart sound present GI: OTHER: Abdomen soft, distended, fluid wave present, umbilical hernia present no overlying skin changes, reducible, no guarding, rebound, rigidity, does have diffuse tenderness to palpation, : COMMON NORMALS: Yes no CVA tenderness Neuro: COMMON NORMALS: patient oriented x3, CN's II-XII intact bilaterally and moves all extremities Psych: COMMON NORMALS: mental status grossly normal Data 05/24/23 01:20 05/24/23 01:20 A&P Assessment and plan (1) Abdominal pain: Qualifiers: Abdominal location: unspecified location Qualified Code(s): R10.9 - Unspecified abdominal pain (2) End-stage renal disease on hemodialysis: (3) Fluid overload: Plan Abdominal pain -Likely secondary to ascites -Will obtain CRP, Pro-Lonny, liver function studies, CT scan abdomen pelvis -Consult IR for paracentesis -Keep n.p.o. for now Fluid overload, anasarca, missed dialysis -Will consult nephrology for dialysis in the a.m. Hyperkalemia, 6.0 -Has received insulin, D50, calcium gluconate -Recheck BMP at 7 AM -Will hopefully get dialysis early in the morning -Telemetry monitoring Hypertension, continue blood pressure medications History of chronic respiratory failure, currently on room air, no shortness of breath complaints, will get dialysis in the morning Attestations 2 Medical Necessity Statement*: Patient requires hospitalization, inpatient, greater than 2 midnights, for fluid overload, missed dialysis, abdominal distention, ascites Diagnoses Abdominal pain, unspecified abdominal location R10.9 Abdominal location: unspecified location End-stage renal disease on hemodialysis N18.6; Z99.2 Fluid overload E87.70
[2023-05-24 03:01] LABS: INR 1.29 (0.8-1.2)
[2023-05-24] MEDS: pantoprazole 40 mg SDV IVP (03:01)
[2023-05-24] MEDS: heparin 5,000 unit/mL INJ 1 mL 5000 UNIT SUBCUT ×2 (03:03→15:35)
[2023-05-24 03:06] LABS: Lactic Sepsis W/Reflex 0.5 mmol/L (0.5-2.2)
[2023-05-24 03:14] LABS: Troponin(5th) Baseline 131 ng/L (0-15)
[2023-05-24] MEDS: dextrose 50% syringe 50 mL IVP (03:16)
[2023-05-24 03:17] LABS: Procalcitonin 0.34 ng/mL (0-0.5)
[2023-05-24] MEDS: insulin regular-human 100 units/1 mL 10 UNIT IVP (03:22)
[2023-05-24] MEDS: calcium gluconate 0.1 gm/mL 10% SDV 10mL 1 GM IVP (03:22)
[2023-05-24 03:23] LABS: ABG PCO2 45.9 mmHg (35-45); ABG PH Result 7.36 (7.35-7.45); Arterial Blood Gas Hematocrit 30.5 % (42-52); Base Excess ABG 0.1 mmol/L (-2.0-2.0); Blood Gas Allen Test Pos; Blood Gas Sample Site Radial, right; Blood Gas Sample Type Arterial; HCO3 ABG 25.9 mmol/L (22-26); PO2 ABG 68.1 mmHg (80.0-100.0); PO2 FiO2 Ratio Arterial Blood 0
[2023-05-24] MEDS: HYDROmorphone 1 mg/mL INJ 1 mL 0.5 MG IVP ×5 (03:27→21:52)
[2023-05-24 03:30] LABS: C Reactive Protein 26.3 mg/L (0.0-4.9); Creatine Phosphokinase 176 U/L (39-308)
[2023-05-24] MEDS: hyDRALAzine 50 mg Tablet 100 MG PO ×3 (03:46→21:02)
[2023-05-24 03:47] LABS: NT Pro B Type Natriuretic Pept > 70000 pg/mL (0-125)
[2023-05-24 04:03] LABS: Troponin 5 2HR Delta 3.8 ABS# (0-10)
[2023-05-24 04:04] LABS: Glucose Point of Care 66 mg/dL (70-110)
[2023-05-24 04:05] LABS: Troponin 5 2HR 134.8 ng/L (0-15)
--- NOTE | 2023-05-24 04:36 | ECG_ITS ---
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 Measurements Intervals [place] Rate: 71 P: 65 LA: 249 QRS: 96 QRSD: 138 T: 77 QT: 401 QTc: 437 Interpretive Statements SINUS RHYTHM WITH FIRST DEGREE AV BLOCK BORDERLINE RIGHT AXIS DEVIATION [QRS AXIS > 90] INTRAVENTRICULAR CONDUCTION DELAY [130+ ms QRS DURATION] POSSIBLE ANTERIOR MYOCARDIAL INFARCTION , PROBABLY OLD [30 ms Q WAVE IN V3/V4, OR R < 0.2 mV IN V4] Compared to ECG 05/24/2023 03:10:18 Intraventricular conduction delay now present Myocardial infarct finding still present Electronically Signed On 05-24-2023 8:38:33 IMPLEMENTATION SPECIALIST PAYROLL by Bharathi Markham M.D. [id number]
[2023-05-24 05:59] LABS: Hepatitis B Surface Antigen Non-Reactive (Nonreactive)
[2023-05-24 06:11] LABS: Blood Urea Nitrogen 52 mg/dL (6-20); Calcium 10.1 mg/dL (8.5-10.5); Carbon Dioxide 19 mmol/L (22-29); Chloride 85 mmol/L (98-107); Glomerular Filtration Rate 5.4 mL/min (90-130); Glucose 58 mg/dL (65-115); Osmolality Calculated 272 mOsm/kg (285-295); Sodium 125 mmol/L (136-145)
[2023-05-24 06:29] LABS: Hepatitis B Surface AB 38.2 (11.5-1000)
[2023-05-24 07:26] LABS: Anion Gap 27.4 (5-19); Potassium 6.4 mmol/L (3.5-5.1)
[2023-05-24 08:24] LABS: Troponin 5 6HR 128.4 ng/L (0-15); Troponin 5 6HR Delta -2.6 ng/L (0-12)
--- NOTE | 2023-05-24 08:36 | ECG_ITS ---
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 Measurements Intervals [place] Rate: 81 P: 70 MI: 242 QRS: 109 QRSD: 146 T: 83 QT: 399 QTc: 464 Interpretive Statements SINUS RHYTHM WITH FIRST DEGREE AV BLOCK POSSIBLE LEFT ATRIAL ENLARGEMENT [-0.1mV P-WAVE IN V1/V2] INTRAVENTRICULAR CONDUCTION DELAY [130+ ms QRS DURATION] LATERAL MYOCARDIAL INFARCTION , OF INDETERMINATE AGE [40+ ms Q WAVE AND/OR ST/T ABNORMALITY IN I/aVL/V5/V6] Compared to ECG 05/24/2023 04:51:12 No significant changes Electronically Signed On 05-25-2023 9:57:26 ROLL THREADER OPERATOR by Bharathi Markham M.D. [id number]
--- NOTE | 2023-05-24 09:29 | PC.PHAR ---
PT NOT IN ROOM WHEN WENT TO VERIFY MEDICATIONS-CALLED PTS SISTER LARISA [phone] VOICEMAIL NOT SETUP TO LEAVE MESSAGE-
--- NOTE | 2023-05-24 11:25 | P.PN_ITS ---
Subjective 2 Subjective: Having periumbilical pain. No vomiting. No diarrhea. Currently undergoing dialysis. Vitals/I&O/Wt Last Vital Signs Temp 97.7 F 05/24/23 05:00 Pulse 80 05/24/23 10:55 Resp 18 05/24/23 10:55 BP 159/82 05/24/23 05:00 Pulse Ox 95 05/24/23 10:55 O2 Del Method Room Air 05/24/23 10:55 FiO2 21 05/24/23 04:23 05/23/23 05/24/23 05/24/23 22:59 06:59 14:59 Output Total 0 / 0 Balance 0 / 0 Weight last 48 hrs Weight 89.358 kg Weight 89.358 kg Weight 86.183 kg Physical Exam 2 Const: COMMON NORMALS: patient oriented x3 and alert GENERAL APPEARANCE: c ooperative ORIENTATION/CONSCIOUSNESS: Yes awake HENMT: COMMON NORMALS: oropharynx normal Neck/C-Spine: COMMON NORMALS: no JVD Resp: COMMON NORMALS: normal respiratory effort and clear to auscultation bilaterally AUSCULTATION: clear to auscultation bilaterally Cardio: COMMON NORMALS: no JVD, regular rhythm, S1 normal heart sound present, S2 normal heart sound present and No murmurs present (Cardio) RHYTHM: regular rhythm HEART SOUNDS: S1 normal heart sound present and S2 normal heart sound present GI: COMMON NORMALS: Soft to palpation INSPECTION: Yes abdominal distension PALPATION: Yes Soft to palpation Extremity: COMMON NORMALS: no joint enlargement and no pedal edema Neuro: COMMON NORMALS: patient oriented x3 and moves all extremities S ENSORIUM/ORIENTATION: Yes alert Skin: COMMON NORMALS: no rashes or lesions noted GENERAL SKIN EXAM: no rashes or lesions noted Data 05/24/23 01:20 05/24/23 03:20 A&P Assessment and plan (1) Abdominal pain: Qualifiers: Abdominal location: unspecified location Qualified Code(s): R10.9 - Unspecified abdominal pain (2) End-stage renal disease on hemodialysis: (3) Fluid overload: Plan Abdominal pain: Nonrigid but very distended abdomen, reviewed vitals, reviewed CBC, ABG, CMP, troponins, CT abdomen pelvis. Large volume ascites noted on imaging. Has had planned for paracentesis, no IR available today as it is weekend. Requesting paracentesis, fluid analysis and Gram stain and culture. Anaerobic culture. Afebrile, without leukocytosis. No other GI symptoms. Secondary to distention likely than any infection/peritonitis. However, monitor symptoms, vitals, recheck CBC. Fluid overload, anasarca, missed dialysis: Undergoing dialysis. Discussed with rail switch operator. Might get additional dialysis tomorrow. Discussed that he will be scheduled for paracentesis. Hyperkalemia: Reviewed potassium, increased up to 6.4: Undergoing dialysis. Discussed with rail switch operator. -Telemetry monitoring due to risk of arrhythmia Hyponatremia: Sodium reviewed, 125. Undergoing dialysis currently. Follow-up sodium levels. Hypertension, continue blood pressure medications Moderate troponin elevation: Having some periumbilical discomfort, no chest pain. Troponin is chronically elevated. Suspect demand ischemia in setting of chronic renal failure. Monitor on telemetry. Monitor for any change in symptoms. History of chronic respiratory failure, currently on room air, no shortness of breath complaints, will get dialysis in the morning. Requesting to confirm home medications so that they can be reconciled. Attestations 2 Medical Necessity Statement*: Continue admission for assessment management of anasarca, fluid overload, multiple metabolic abnormalities, hyperkalemia, hyponatremia, large volume ascites. Diagnoses Abdominal pain, unspecified abdominal location R10.9 Abdominal location: unspecified location End-stage renal disease on hemodialysis N18.6; Z99.2 Fluid overload E87.70
[2023-05-24] MEDS: prasugrel 10 MG Tablet PO (12:39)
[2023-05-24] MEDS: carvedilol 25 mg Tablet 37.5 MG PO ×2 (12:39→21:02)
[2023-05-24] MEDS: losartan 50 mg Tablet 100 MG PO (12:40)
[2023-05-24] MEDS: isosorbide mononitrate ER 60 mg Tablet 240 MG PO (12:40)
[2023-05-24] MEDS: amlodipine 10 mg Tablet PO (12:41)
[2023-05-24] MEDS: aspirin 81 mg EC Tablet PO (12:41)
[2023-05-24] MEDS: epoetin alfa 1000 Unit/0.05 mL (ESRD) 20000 UNIT IVP (12:45)
[2023-05-24] MEDS: heparin, porcine 1,000 unit/mL INJ 10 mL 10000 UNIT INTRACATH (12:45)
--- NOTE | 2023-05-24 16:55 | P.CONIM_ITS ---
Providers/Reason For Consult 2 Consulting Physician/Specialty*: kommana/nephrology Reason for Consult*: ESRD Attending Physician: Bob Gonzalez Primary Care Provider: Mal Junior History of Present Illness History of Present Illness Mal Gibbs is a 42 year old male Patient is a 42-year-old male with past medical history of chronic respiratory failure, end-stage renal disease, liver cirrhosis requiring frequent paracentesis, hypertension dyslipidemia presented to the hospital due to abdominal pain and shortness of breath. Patient missed dialysis on Thursday. Patient also was noted to have anasarca. Lab data was significant for hyperkalemia with a potassium more than 6, received calcium and insulin and plasties 50% infusion,. Lab data chest x-ray showed pulmonary edema. Review of Systems 2 Narrative: other ROS negative Medications/Allergies Home Medications Medication Instructions Recorded Confirmed Last Taken Type ferric citrate 210 mg iron tablet See Rx Instructions .Route .COMPLEX 11/03/21 05/19/23 05/20/23 History (Auryxia) aspirin 81 mg tablet,delayed 81 mg PO DAILY 02/21/22 05/19/23 05/20/23 History release pantoprazole 40 mg tablet,delayed 40 mg PO DAILY 02/21/22 05/19/23 05/20/23 History release DME - BIPAP #1 ea 02/25/22 05/05/23 05/05/23 Rx DME - Oxygen #1 ea 02/25/22 05/05/23 05/05/23 Rx cyanocobalamin (vitamin B-12) 1,000 mcg PO DAILY #30 caps 08/07/22 05/20/23 05/20/23 Rx 1,000 mcg capsule isosorbide mononitrate 120 mg 240 mg PO DAILY 10/01/22 05/19/23 05/20/23 History tablet,extended release 24 hr vit B,C-folic ac 800 mcg-zinc 12.5 1 tab PO DAILY 10/01/22 05/19/23 05/20/23 History mg-selen-D3 2,000 unit-vit E tablet (RenaPlex-D) losartan 50 mg tablet 100 mg (2 x 50 mg) PO DAILY #60 10/04/22 05/20/23 05/19/23 Rx tabs amlodipine 10 mg tablet 10 mg PO DAILY 01/09/23 05/19/23 05/19/23 History atorvastatin 40 mg tablet 40 mg PO BEDTIME 01/09/23 05/19/23 05/19/23 History carvedilol 25 mg tablet 37.5 mg PO Q12H 01/09/23 05/19/23 05/20/23 History clonidine 0.2 mg/24 hr weekly 0.2 mg topical Q7D 01/09/23 05/20/23 04/20/23 History transdermal patch hydralazine 100 mg tablet 100 mg PO Q8H 01/09/23 05/19/23 05/20/23 History prasugrel 10 mg tablet 10 mg PO DAILY 01/09/23 05/19/23 05/20/23 History naloxone 4 mg/actuation nasal spray 4 mg intranasal PRN PRN overdose 01/12/23 05/19/23 03/10/23 History doxycycline hyclate 100 mg tablet 100 mg PO BID 02/15/23 05/20/23 05/05/23 History minoxidil 2.5 mg tablet 10 mg PO TID 05/19/23 05/19/23 05/20/23 History ondansetron 4 mg disintegrating 4 mg translingual Q8H PRN Nausea 05/19/23 05/20/23 05/19/23 History tablet And Vomiting Allergies Allergy/AdvReac Type Severity Reaction Status Date / Time spironolactone Allergy Intermediate facial Verified 05/20/23 13:02 swelling lisinopril Allergy ADR-Swelling Verified 05/20/23 13:02 of the Eye nifedipine Allergy ALGY-Swell Verified 05/20/23 13:02 Lip/Tongue/Throat Current Medications Generic Name Dose Route Start Last Admin Trade Name Freq PRN Reason Stop Dose Admin Amlodipine Besylate 10 mg 05/24/23 09:00 05/24/23 12:41 Amlodipine 10 Mg Tablet PO 10 mg DAILY ARTEM Administration Aspirin 81 mg 05/24/23 09:00 05/24/23 12:41 Aspirin 81 Mg Ec Tablet PO 81 mg DAILY ARTEM Administration Carvedilol 37.5 mg 05/24/23 09:00 05/24/23 12:39 Carvedilol 25 Mg Tablet PO 37.5 mg Q12H ARTEM Administration Heparin Sodium (Porcine) 5,000 unit 05/24/23 02:45 05/24/23 15:35 Heparin 5,000 Unit/Ml Inj 1 Ml SUBCUT 5,000 unit Q12H ARTEM Administration Hydralazine HCl 100 mg 05/24/23 03:45 05/24/23 12:39 Hydralazine 50 Mg Tablet PO 100 mg Q8H ARTEM Administration Hydromorphone HCl 0.5 mg 05/24/23 02:36 05/24/23 12:36 Hydromorphone 1 Mg/Ml Inj 1 Ml IVP 0.5 mg Q4H PRN Administration PAIN Isosorbide Mononitrate 240 mg 05/24/23 09:00 05/24/23 12:40 Isosorbide Mononitrate Er 60 Mg Tablet PO 240 mg DAILY ARTEM Administration Losartan Potassium 100 mg 05/24/23 09:00 05/24/23 12:40 Losartan 50 Mg Tablet PO 100 mg DAILY ARTEM Administration Minoxidil 10 mg 05/24/23 09:00 05/24/23 15:38 Minoxidil 10 Mg Tablet PO Not Given TID ARTEM Non-Formulary Medication 1 tab 05/24/23 09:00 05/24/23 12:42 Vit B,L-Bk-Gxqx-Selen-Vit D3-E [Renaplex-D] PO Not Given DAILY ARTEM Non-Formulary Medication 0 tab 05/24/23 09:00 05/24/23 15:38 Ferric Citrate [Auryxia] PO Not Given TID ARTEM Pantoprazole Sodium 40 mg 05/24/23 02:45 05/24/23 03:01 Pantoprazole 40 Mg Sdv IVP 40 mg Q24H ARTEM Administration Prasugrel 10 mg 05/24/23 09:00 05/24/23 12:39 Prasugrel 10 Mg Tablet PO 10 mg DAILY ARTEM Administration PFSH Acute 2 PFSH: Medical History Acute and chronic respiratory failure with hypoxia Patient under care of multiple providers Hypertensive urgency History of cardiovascular stress test 07/2022 at [facility] perfusion imaging probably normal, no reversible defects, small fixed defect in apical anterior wall, EF 54%, nonischemic response to stress by EKG criteria Depression Epididymitis 06/2022 Pulmonary hypertension Uses bilevel positive airway pressure (BPAP) ventilation at home Umbilical hernia History of home oxygen therapy History of coronary angiogram 11/2021 - patent stent Inguinal hernia Anxiety Chronic respiratory failure on home oxygen and bipap Low back pain Nicotine dependence, cigarettes, with other nicotine-induced disorders Generalized anxiety disorder with panic attacks ESRD on dialysis Atherosclerosis of coronary artery Stent and balloon angioplasty to proximal 1 OM branch Chronic abdominal pain COVID 05/25 Hypertensive emergency recurrent episodes Urethral stricture Abdominal ascites history of intermittent paracentesis, transudative fluid; prior work up has included negative biopsy, ceruloplasmin level normal, low iron, high ferritin, normal TIBC, negative HIV, hepatitis panel negative, JESÚS/SCL 70/double-stranded DNA antibodies negative, Alpha-fetoprotein level unremarkable, nonalcoholic by history, has hepatomegaly and splenomegaly Pulmonary embolism 09/21 CTA inconclusive for very tiny peripheral LEFT lower lobe pulmonary artery sub segmental emboli versus poor opacification. Anemia chronic kidney disease Congestive heart failure preserved ejection fraction COPD (chronic obstructive pulmonary disease) Arteriovenous fistula for hemodialysis in place, secondary Degenerative disc disease, lumbar Hypertension uncontrolled Surgical History Stented coronary artery H/O hand surgery Amputation right 2&3 fingers 2017 History of adenoidectomy Family History Other Hypertension Social History Smoking and tobacco/nicotine status: current every day tobacco/nicotine user cigarettes Packs smoked per day: 1.5 Years cigarettes smoked: 21 [ Other cigarette details: started age 20, currently 0.5ppd ] Alcohol intake: never Substance/Drug Use: never Number of children: 3 Current occupational status: disabled Do you think of yourself as: Straight/Heterosexual Vitals/I&O/Wt Last Vital Signs Temp 98.3 F 05/24/23 15:55 Pulse 92 05/24/23 15:55 Resp 14 05/24/23 15:55 BP 136/65 05/24/23 15:55 Pulse Ox 93 05/24/23 15:55 O2 Del Method Room Air 05/24/23 15:55 FiO2 21 05/24/23 04:23 05/24/23 05/24/23 05/24/23 06:59 14:59 22:59 Intake Total 240 / 240 Output Total 0 / 0 Balance 0 / 0 240 / 240 Weight last 48 hrs Weight 89.358 kg Weight 89.358 kg Weight 86.183 kg Physical Exam 2 Narrative: awake , alert no distress + edema Data 05/24/23 01:20 05/24/23 03:20 A&P Assessment and plan (1) End-stage renal disease on hemodialysis: Plan 1. End-stage renal disease: TTS schedule as outpatient, missed dialysis on Thursday HD today, ultrafiltration as tolerated 2. Hyperkalemia: Status post med management, low K diet, history as above 3. Anemia: Hemoglobin 10.2, monitor 4. History of liver cirrhosis, requiring frequent paracentesis 5. Anasarca, fluid overload Patient evaluated using audiovisual cart. Time spent 40 minutes. Consult Attestations 2 Medical Necessity Statement: per medicine Coding Level of Care Code Acute Code for Chg Fwd Diagnoses End-stage renal disease on hemodialysis N18.6; Z99.2
[2023-05-24] MEDS: heparin, porcine 1,000 unit/mL INJ 10 mL 1000 UNIT IV (17:40)
[2023-05-24] MEDS: atorvastatin 40 mg Tablet PO (21:02)
[2023-05-25] VITALS (15 sets, daily range): BP systolic 110–154; BP diastolic 60–77; PULSE 66–78; RESP 16–19; TEMP 36.6–37.2; O2SAT 91–94
[2023-05-25] MEDS: HYDROmorphone 1 mg/mL INJ 1 mL 0.5 MG IVP ×5 (02:01→20:51)
[2023-05-25] MEDS: pantoprazole 40 mg SDV IVP (02:01)
[2023-05-25] MEDS: hyDRALAzine 50 mg Tablet 100 MG PO ×3 (03:16→20:36)
[2023-05-25] MEDS: heparin 5,000 unit/mL INJ 1 mL 5000 UNIT SUBCUT ×2 (03:16→15:04)
[2023-05-25 04:49] LABS: Basophils # 0.1 10^3/uL (0.0-0.1); Basophils % 2.3 %; Eosinophils # 0.3 10^3/uL (0.0-0.8); Hematocrit 29.4 % (37-53); Lymphocytes # 0.6 10^3/uL (0.8-4.8); Lymphocytes % 17.5 %; Mean Corpuscular HGB Conc 31.6 g/dL (30-55); Mean Corpuscular Hemoglobin 26.9 pg (27-33); Mean Platelet Volume 10.6 fL (7.4-10.4); Monocytes # 0.4 10^3/uL (0.2-0.9); Monocytes % 12.3 %; Neutrophils # 2.07 10^3/uL (1.8-7.7); Neutrophils % 59.3 %; Nucleated Red Blood Cells % 0 %; Platelet Count 145 10^3/cmm (157-399); Red Blood Count 3.46 10^6/uL (3.85-5.65); White Blood Count 3.49 10^3/uL (3.29-11.43)
[2023-05-25 05:19] LABS: Anion Gap 18.9 (5-19); Blood Urea Nitrogen 35 mg/dL (6-20); Calcium 9.8 mg/dL (8.5-10.5); Carbon Dioxide 26 mmol/L (22-29); Chloride 93 mmol/L (98-107); Glomerular Filtration Rate 7.3 mL/min (90-130); Glucose 102 mg/dL (65-115); Osmolality Calculated 284 mOsm/kg (285-295); Potassium 4.9 mmol/L (3.5-5.1); Sodium 133 mmol/L (136-145)
--- NOTE | 2023-05-25 06:00 | US_ITS ---
WS: [id number] Abdominal ultrasound, limited. History: Evaluate for ascites. Comparison: None. All 4 quadrants are imaged by ultrasound to evaluate for ascites. Patient does have a small amount of fluid throughout the lower quadrants. Only a small amount of ascites is identified. IMPRESSION: Small amount of ascites. Patient also had a recent paracentesis less than 1 week ago and is not compl aining of any discomfort. No paracentesis will be performed today.
[2023-05-25] MEDS: diphenhydrAMINE 25 mg Capsule PO (07:29)
[2023-05-25] MEDS: prasugrel 10 MG Tablet PO (08:52)
[2023-05-25] MEDS: isosorbide mononitrate ER 60 mg Tablet 240 MG PO (08:52)
[2023-05-25] MEDS: carvedilol 25 mg Tablet 37.5 MG PO ×2 (08:52→20:35)
[2023-05-25] MEDS: aspirin 81 mg EC Tablet PO (08:52)
[2023-05-25] MEDS: amlodipine 10 mg Tablet PO (08:52)
[2023-05-25] MEDS: losartan 50 mg Tablet 100 MG PO (08:52)
--- NOTE | 2023-05-25 10:14 | P.PN_ITS ---
Subjective 2 Subjective: c/o abd distention Medications: Reviewed: Yes Vitals/I&O/Wt Last Vital Signs Temp 97.9 F 05/25/23 08:10 Pulse 73 05/25/23 08:10 Resp 17 05/25/23 08:10 BP 142/76 05/25/23 08:52 Pulse Ox 91 05/25/23 08:10 O2 Del Method Room Air 05/25/23 08:10 FiO2 21 05/24/23 04:23 05/24/23 05/25/23 05/25/23 22:59 06:59 14:59 Intake Total 480 / 720 480 / 1200 480 / 480 Balance 480 / 720 480 / 1200 480 / 480 Weight last 48 hrs Weight 89.358 kg Weight 89.358 kg Weight 89.358 kg Weight 86.183 kg Physical Exam 2 Narrative: awake , alert no distress + edema Data 05/25/23 04:03 05/25/23 04:03 A&P Assessment and plan (1) End-stage renal disease on hemodialysis: Plan 1. End-stage renal disease: TTS schedule as outpatient, missed dialysis on Thursday HD yesterday , ultrafiltration as tolerated Next HD tomorrow 2. Hyperkalemia: Status post med management, low K diet, history as above 3. Anemia: Hemoglobin 10.2, monitor 4. History of liver cirrhosis, requiring frequent paracentesis 5. Anasarca, fluid overload Patient evaluated using audiovisual cart. Time spent 40 minutes. Attestations 2 Medical Necessity Statement*: per howie Coding Level of Care Code Acute Code for Chg Fwd Diagnoses End-stage renal disease on hemodialysis N18.6; Z99.2
--- NOTE | 2023-05-25 16:24 | P.PN_ITS ---
Subjective 2 Subjective: Hospital course, labs appreciated. Examination patient sitting up in bed complaining of inguinal pain. He states his hernia is hurting. Denies any abdominal pain. Denies any nausea or vomiting. Has remained hemodynamically stable and afebrile. Last bowel movement was more than 36 hours ago, passing flatus. Vitals/I&O/Wt Last Vital Signs Temp 97.8 F 05/25/23 16:10 Pulse 69 05/25/23 16:10 Resp 18 05/25/23 16:10 BP 153/77 05/25/23 16:10 Pulse Ox 92 05/25/23 16:10 O2 Del Method Room Air 05/25/23 16:10 FiO2 21 05/24/23 04:23 05/25/23 05/25/23 05/25/23 06:59 14:59 22:59 Intake Total 480 / 1200 1040 / 1040 Balance 480 / 1200 1040 / 1040 Weight last 48 hrs Weight 89.358 kg Weight 89.358 kg Weight 89.358 kg Weight 86.183 kg Physical Exam 2 Const: COMMON NORMALS: no acute distress, patient oriented x3 and alert G ENERAL APPEARANCE: cooperative ORIENTATION/CONSCIOUSNESS: Yes awake HENMT: COMMON NORMALS: normocephalic and oropharynx normal HEAD & SCALP: n ormocephalic Eye: COMMON NORMALS: Equal, round and reactive pupils present and EOMs intact bilaterally PUPIL: Yes Equal, round and reactive pupils present Neck/C-Spine: COMMON NORMALS: no JVD Lymph: LYMPHATIC: no lymphadenopathy noted Chest: COMMONS NORMALS: normal inspection of the chest Resp: COMMON NORMALS: normal respiratory effort, No retractions, No use of accessory muscles and clear to auscultation bilaterally AUSCULTATION: clear to auscultation bilaterally Cardio: COMMON NORMALS: no JVD, regular rate, regular rhythm, S1 normal heart sound present, S2 normal heart sound present and No murmurs present (Cardio) RATE: regular rate RHYTHM: regular rhythm HEART SOUNDS: S1 normal heart sound present and S2 normal heart sound present GI: COMMON NORMALS: Soft to palpation INSPECTION: Yes abdominal distension PALPATION: Yes Soft to palpation OTHER: Abdomen soft, distended, fluid wave present, umbilical hernia present no overlying skin changes, reducible, no guarding, rebound, rigidity, does have diffuse tenderness to palpation, : COMMON NORMALS: Yes no CVA tenderness BLADDER/KIDNEY EXAM: Yes no CVA tenderness Back/Pelvis: COMMON NORMALS: no CVA tenderness Extremity: COMMON NORMALS: no joint enlargement and no pedal edema Neuro: COMMON NORMALS: patient oriented x3, CN's II-XII intact bilaterally and moves all extremities SENSORIUM/ORIENTATION: Yes alert Psych: COMMON NORMALS: mental status grossly normal Skin: COMMON NORMALS: no rashes or lesions noted GENERAL SKIN EXAM: no rashes or lesions noted Data 05/25/23 04:03 05/25/23 04:03 A&P Assessment and plan (1) Abdominal pain: Qualifiers: Abdominal location: unspecified location Qualified Code(s): R10.9 - Unspecified abdominal pain (2) End-stage renal disease on hemodialysis: (3) Fluid overload: (4) Abdominal ascites: (5) Acute hyponatremia: (6) Right hydrocele: (7) Hernia, inguinal, right: Plan Abdominal pain: Nonrigid but very distended abdomen, reviewed vitals, reviewed CBC, ABG, CMP, troponins, CT abdomen pelvis. Large volume ascites noted on imaging. Has had planned for paracentesis, no IR available today as it is weekend. Requesting paracentesis, fluid analysis and Gram stain and culture. Anaerobic culture. Afebrile, without leukocytosis. No other GI symptoms. Secondary to distention likely than any infection/peritonitis. However, monitor symptoms, vitals, recheck CBC. Fluid overload, anasarca, missed dialysis: Undergoing dialysis. Discussed with dobie man. Might get additional dialysis tomorrow. Discussed that he will be scheduled for paracentesis. Hyperkalemia: Reviewed potassium, increased up to 6.4: Undergoing dialysis. Discussed with dobie man. -Telemetry monitoring due to risk of arrhythmia Hyponatremia: Sodium reviewed, 125. Undergoing dialysis currently. Follow-up sodium levels. Hypertension, continue blood pressure medications Moderate troponin elevation: Having some periumbilical discomfort, no chest pain. Troponin is chronically elevated. Suspect demand ischemia in setting of chronic renal failure. Monitor on telemetry. Monitor for any change in symptoms. History of chronic respiratory failure, currently on room air, no shortness of breath complaints, will get dialysis in the morning. Plan for the day: Awaiting abdominal ultrasound for possible paracentesis. Appreciate nephrology recommendations for need of dialysis within next 24 hours. Continue with home antihypertensives. Appreciate CT abdomen pelvis. No concerns for incarceration inguinal hernia. Hyponatremia resolving. Hyperkalemia resolved. Care discussed in detail with surgeon on-call. He recommends patient to follow- up as an outpatient [facility] facility where they can take care of both inguinal hernia and hydrocele at the same time with a urologist. Unfortunately we do not have a urologist so it will be better for patient to follow-up as an outpatient at a higher center. Attestations 2 Medical Necessity Statement*: Requires further hospitalization for management of abdominal pain in setting of ascites needing possible paracentesis, right inguinal hernia in a patient with end-stage renal disease on hemodialysis, resolving hyponatremia and hyperkalemia Diagnoses Abdominal pain, unspecified abdominal location R10.9 Abdominal location: unspecified location End-stage renal disease on hemodialysis N18.6; Z99.2 Fluid overload E87.70 Abdominal ascites R18.8 Acute hyponatremia E87.1 Right hydrocele N43.3 Hernia, inguinal, right K40.90
[2023-05-25] MEDS: atorvastatin 40 mg Tablet PO (20:35)
[2023-05-25] MEDS: minoxidil 10 mg Tablet PO (20:46)
[2023-05-26] VITALS (8 sets, daily range): BP systolic 105–152; BP diastolic 58–80; PULSE 68–70; RESP 16–18; TEMP 36.6–37.3; O2SAT 93–95
[2023-05-26] MEDS: HYDROmorphone 1 mg/mL INJ 1 mL 0.5 MG IVP ×4 (01:05→14:19)
[2023-05-26] MEDS: heparin 5,000 unit/mL INJ 1 mL 5000 UNIT SUBCUT (02:32)
[2023-05-26] MEDS: pantoprazole 40 mg SDV IVP (02:33)
[2023-05-26] MEDS: hyDRALAzine 50 mg Tablet 100 MG PO ×3 (03:17→20:28)
[2023-05-26 04:44] LABS: Basophils # 0.1 10^3/uL (0.0-0.1); Basophils % 2.2 %; Eosinophils # 0.3 10^3/uL (0.0-0.8); Eosinophils % 7.4 %; Hematocrit 29.1 % (37-53); Lymphocytes # 0.5 10^3/uL (0.8-4.8); Lymphocytes % 14.2 %; Mean Corpuscular HGB Conc 32.3 g/dL (30-55); Mean Corpuscular Hemoglobin 26.9 pg (27-33); Mean Corpuscular Volume 83.1 fl (82-101); Mean Platelet Volume 9.8 fL (7.4-10.4); Monocytes # 0.4 10^3/uL (0.2-0.9); Monocytes % 10.1 %; Neutrophils % 65.6 %; Nucleated Red Blood Cells % 0 %; Platelet Count 140 10^3/cmm (157-399); Red Cell Distribution Width 20.5 % (12.1-15.1); White Blood Count 3.66 10^3/uL (3.29-11.43)
[2023-05-26 05:15] LABS: Blood Urea Nitrogen 45 mg/dL (6-20); Calcium 10.2 mg/dL (8.5-10.5); Carbon Dioxide 27 mmol/L (22-29); Chloride 92 mmol/L (98-107); Glomerular Filtration Rate 6.4 mL/min (90-130); Glucose 72 mg/dL (65-115); Osmolality Calculated 282 mOsm/kg (285-295); Sodium 131 mmol/L (136-145)
--- NOTE | 2023-05-26 09:22 | PC.PHAR ---
PT UNABLE TO VERIFY MEDICATIONS- UNABLE TO CONTACT PTS SISTER LARSIA [phone] OR LEAVE A MESSAGE (VOICE BOX IS FULL) MEDICATIONS VERIFIED USING EXTERNAL MED LIST AND CALLING PHARMACY
[2023-05-26] MEDS: isosorbide mononitrate ER 60 mg Tablet 240 MG PO (09:41)
[2023-05-26] MEDS: prasugrel 10 MG Tablet PO (09:41)
[2023-05-26] MEDS: carvedilol 25 mg Tablet 37.5 MG PO ×2 (09:41→20:28)
[2023-05-26] MEDS: amlodipine 10 mg Tablet PO (09:41)
[2023-05-26] MEDS: aspirin 81 mg EC Tablet PO (09:41)
[2023-05-26] MEDS: losartan 50 mg Tablet 100 MG PO (09:41)
[2023-05-26] MEDS: minoxidil 10 mg Tablet PO ×2 (10:18→20:28)
[2023-05-26] MEDS: calcium gluconate 0.1 gm/mL 10% SDV 10mL 1 GM IVP (10:59)
[2023-05-26] MEDS: HYDROcodone-acetaminophen 5-325 mg Tablet 1 TAB PO ×3 (13:14→23:31)
--- NOTE | 2023-05-26 13:53 | PM.PN ---
Subjective Subjective: No events overnight. Patient has remained hemodynamically stable. Today morning seen sitting in bed. Complaining of abdominal pain. Had 1 bowel movement yesterday. Denies any nausea or progress. Medications: Reviewed: Yes Vitals/I&O/Wt Last Vital Signs Temp 98.0 F 05/26/23 11:50 Pulse 69 05/26/23 11:50 Resp 16 05/26/23 11:50 BP 152/73 05/26/23 11:50 Pulse Ox 93 05/26/23 11:50 O2 Del Method Room Air 05/26/23 11:50 FiO2 21 05/24/23 04:23 05/25/23 05/26/23 05/26/23 22:59 06:59 14:59 Intake Total 1440 / 2480 800 / 3280 360 / 360 Output Total 0 / 0 0 / 0 Balance 1440 / 2480 800 / 3280 360 / 360 Weight last 48 hrs Weight 89.358 kg Weight 89.358 kg Physical Exam Const: COMMON NORMALS: no acute distress, patient oriented x3 and alert GENERAL APPEARANCE: cooperative ORIENTATION/CONSCIOUSNESS: Yes awake HENMT: COMMON NORMALS: normocephalic and oropharynx normal HEAD & SCALP: normocephalic Eye: COMMON NORMALS: Equal, round and reactive pupils present and EOMs intact bilaterally PUPIL: Yes Equal, round and reactive pupils present Neck/C-Spine: COMMON NORMALS: no JVD Lymph: LYMPHATIC: no lymphadenopathy noted Chest: COMMONS NORMALS: normal inspection of the chest Resp: COMMON NORMALS: normal respiratory effort, No retractions, No use of accessory muscles and clear to auscultation bilaterally AUSCULTATION: clear to auscultation bilaterally Cardio: COMMON NORMALS: no JVD, regular rate, regular rhythm, S1 normal heart sound present, S2 normal heart sound present and No murmurs present (Cardio) RATE: regular rate RHYTHM: regular rhythm HEART SOUNDS: S1 normal heart sound present and S2 normal heart sound present GI: COMMON NORMALS: Soft to palpation INSPECTION: Yes abdominal distension PALPATION: Yes Soft to palpation OTHER: Abdomen soft, distended, fluid wave present, umbilical hernia present no overlying skin changes, reducible, no guarding, rebound, rigidity, does have diffuse tenderness to palpation, : COMMON NORMALS: Yes no CVA tenderness BLADDER/KIDNEY EXAM: Yes no CVA tenderness Back/Pelvis: COMMON NORMALS: no CVA tenderness Extremity: COMMON NORMALS: no joint enlargement and no pedal edema Neuro: COMMON NORMALS: patient oriented x3, CN's II-XII intact bilaterally and moves all extremities SENSORIUM/ORIENTATION: Yes alert Psych: COMMON NORMALS: mental status grossly normal Skin: COMMON NORMALS: no rashes or lesions noted GENERAL SKIN EXAM: no rashes or lesions noted Data 05/26/23 04:14 05/26/23 04:14 A&P Assessment and plan (1) Abdominal pain: Qualifiers: Abdominal location: unspecified location Qualified Code(s): R10.9 - Unspecified abdominal pain (2) End-stage renal disease on hemodialysis: (3) Fluid overload: (4) Abdominal ascites: (5) Acute hyponatremia: (6) Right hydrocele: (7) Hernia, inguinal, right: Plan Abdominal pain: Nonrigid but very distended abdomen, reviewed vitals, reviewed CBC, ABG, CMP, troponins, CT abdomen pelvis. Large volume ascites noted on imaging. Has had planned for paracentesis, no IR available today as it is weekend. Requesting paracentesis, fluid analysis and Gram stain and culture. Anaerobic culture. Afebrile, without leukocytosis. No other GI symptoms. Secondary to distention likely than any infection/peritonitis. However, monitor symptoms, vitals, recheck CBC. Fluid overload, anasarca, missed dialysis: Undergoing dialysis. Discussed with fire apparatus sprinkler inspector. Might get additional dialysis tomorrow. Discussed that he will be scheduled for paracentesis. Hyperkalemia: Reviewed potassium, increased up to 6.4: Undergoing dialysis. Discussed with fire apparatus sprinkler inspector. -Telemetry monitoring due to risk of arrhythmia Hyponatremia: Sodium reviewed, 125. Undergoing dialysis currently. Follow-up sodium levels. Hypertension, continue blood pressure medications Moderate troponin elevation: Having some periumbilical discomfort, no chest pain. Troponin is chronically elevated. Suspect demand ischemia in setting of chronic renal failure. Monitor on telemetry. Monitor for any change in symptoms. History of chronic respiratory failure, currently on room air, no shortness of breath complaints, will get dialysis in the morning. Plan for the day: Complaining of abdominal pain. Continue with Dilaudid IV as needed. Add [place] as needed. IV Protonix. Discussed in detail with patient about surgical recommendations for anemia of both surgeries for hernia Hydrocele and need for urologist along with general surgeon. Patient has developed hyperkalemia today. Stressed the case in detail with urology. Patient requires dialysis though cannot be done as hospital out of dialysis fluid. Reached out to patient's outpatient dialysis center who would not accept patient today for dialysis. I have been told by the nursing insurance that we should have dialysis fluids completed with the day today. For now start patient on Kayexalate one-time along with IV calcium gluconate. If not able to get dialysis by afternoon we will plan for repeat BMP at around 4 PM. Hold off on discharge for now. Patient did not get dialysis to monitor electrolytes. Telemetry. Attestations Medical Necessity Statement*: Requires further hospitalization for management of hyperkalemia in a patient with end-stage renal disease on hemodialysis as he awaits dialysis, abdominal pain in setting of right inguinal hernia and hydrocele Diagnoses Abdominal pain, unspecified abdominal location R10.9 Abdominal location: unspecified location End-stage renal disease on hemodialysis N18.6; Z99.2 Fluid overload E87.70 Abdominal ascites R18.8 Acute hyponatremia E87.1 Right hydrocele N43.3 Hernia, inguinal, right K40.90
[2023-05-26] MEDS: heparin, porcine 1,000 unit/mL INJ 10 mL 1000 UNIT IV (14:19)
--- NOTE | 2023-05-26 17:13 | P.PN_ITS ---
Subjective 2 Subjective: getting HD Medications: Reviewed: Yes Vitals/I&O/Wt Last Vital Signs Temp 98.0 F 05/26/23 11:50 Pulse 69 05/26/23 11:50 Resp 16 05/26/23 11:50 BP 152/73 05/26/23 11:50 Pulse Ox 93 05/26/23 11:50 O2 Del Method Room Air 05/26/23 11:50 FiO2 21 05/24/23 04:23 05/26/23 05/26/23 05/26/23 06:59 14:59 22:59 Intake Total 800 / 3280 600 / 600 Output Total 0 / 0 Balance 800 / 3280 600 / 600 Weight last 48 hrs Weight 89.358 kg Weight 89.358 kg Physical Exam 2 Narrative: awake , alert no distress + edema Data 05/26/23 04:14 05/26/23 04:14 A&P Assessment and plan (1) End-stage renal disease on hemodialysis: Plan 1. End-stage renal disease: TTS schedule as outpatient, missed dialysis on Thursday HD yesterday , ultrafiltration as tolerated Next HD today 2. Hyperkalemia: Status post med management, low K diet, history as above 3. Anemia: Hemoglobin 10.2, monitor 4. History of liver cirrhosis, requiring frequent paracentesis 5. Anasarca, fluid overload Patient evaluated using audiovisual cart. Time spent 40 minutes. Attestations 2 Medical Necessity Statement*: per howie Coding Level of Care Code Acute Code for Chg Fwd Diagnoses End-stage renal disease on hemodialysis N18.6; Z99.2
[2023-05-26 17:53] LABS: Anion Gap 13.9 (5-19); Blood Urea Nitrogen 28 mg/dL (6-20); Calcium 9.2 mg/dL (8.5-10.5); Carbon Dioxide 30 mmol/L (22-29); Chloride 94 mmol/L (98-107); Glomerular Filtration Rate 10.9 mL/min (90-130); Glucose 88 mg/dL (65-115); Osmolality Calculated 283 mOsm/kg (285-295); Potassium 3.9 mmol/L (3.5-5.1); Sodium 134 mmol/L (136-145)
[2023-05-26] MEDS: atorvastatin 40 mg Tablet PO (20:28)
[2023-05-27] VITALS (10 sets, daily range): BP systolic 125–160; BP diastolic 63–82; PULSE 67–82; RESP 15–18; TEMP 36.4–36.8; O2SAT 92–95; BMI 27.6
[2023-05-27] MEDS: pantoprazole 40 mg SDV IVP (02:20)
[2023-05-27] MEDS: heparin 5,000 unit/mL INJ 1 mL 5000 UNIT SUBCUT ×2 (02:21→14:33)
[2023-05-27] MEDS: hyDRALAzine 50 mg Tablet 100 MG PO ×2 (03:28→11:59)
[2023-05-27] MEDS: HYDROcodone-acetaminophen 5-325 mg Tablet 1 TAB PO ×3 (03:29→15:11)
[2023-05-27 04:59] LABS: Basophils # 0.1 10^3/uL (0.0-0.1); Basophils % 2.3 %; Eosinophils # 0.3 10^3/uL (0.0-0.8); Eosinophils % 8.5 %; Hematocrit 30.1 % (37-53); Lymphocytes # 0.5 10^3/uL (0.8-4.8); Lymphocytes % 13.6 %; Mean Corpuscular HGB Conc 32.6 g/dL (30-55); Mean Corpuscular Hemoglobin 27.1 pg (27-33); Mean Corpuscular Volume 83.4 fl (82-101); Mean Platelet Volume 10.1 fL (7.4-10.4); Monocytes # 0.4 10^3/uL (0.2-0.9); Monocytes % 11.9 %; Neutrophils # 2.23 10^3/uL (1.8-7.7); Neutrophils % 63.4 %; Nucleated Red Blood Cells % 0 %; Platelet Count 156 10^3/cmm (157-399); Red Blood Count 3.61 10^6/uL (3.85-5.65); Red Cell Distribution Width 20.8 % (12.1-15.1); White Blood Count 3.52 10^3/uL (3.29-11.43)
[2023-05-27 05:21] LABS: Anion Gap 15.8 (5-19); Blood Urea Nitrogen 31 mg/dL (6-20); Calcium 10.3 mg/dL (8.5-10.5); Carbon Dioxide 29 mmol/L (22-29); Chloride 92 mmol/L (98-107); Glomerular Filtration Rate 8.2 mL/min (90-130); Glucose 95 mg/dL (65-115); Osmolality Calculated 280 mOsm/kg (285-295); Potassium 4.8 mmol/L (3.5-5.1); Sodium 132 mmol/L (136-145)
[2023-05-27] MEDS: amlodipine 10 mg Tablet PO (08:30)
[2023-05-27] MEDS: prasugrel 10 MG Tablet PO (08:31)
[2023-05-27] MEDS: isosorbide mononitrate ER 60 mg Tablet 240 MG PO (08:31)
[2023-05-27] MEDS: losartan 50 mg Tablet 100 MG PO (08:31)
[2023-05-27] MEDS: aspirin 81 mg EC Tablet PO (08:31)
[2023-05-27] MEDS: carvedilol 25 mg Tablet 37.5 MG PO (08:32)
[2023-05-27] MEDS: minoxidil 10 mg Tablet PO ×2 (08:34→15:11)
--- NOTE | 2023-05-27 10:52 | PM.DCS ---
Discharge Providers Date of Admission: 05/24/23 02:36 Date of Discharge: May 27, 2023 Attending Provider at Admission: Tunde Umana MD Attending Provider at Discharge: Kerwin Platt MD Primary Care Provider: Mal Junior Diagnoses at Discharge Discharge Diagnosis (1) End-stage renal disease on hemodialysis: Status: Acute Reason for Visit Reason for Visit: stomach and groin pain Brief History: History as per HPI: Mal Gibbs is a 42 year old male with a past medical history of chronic respiratory failure, end-stage renal disease on dialysis, liver cirrhosis requiring recurrent paracentesis last paracentesis was Thursday with 4 L taken off, hypertension, hyperlipidemia, who presents to [facility] as he missed dialysis today, and abdominal pain. Patient tells me that he had a paracentesis on Thursday, took 4 L off and he continues to have abdominal distention, diffuse pain, no fevers, chills, nausea, vomiting, he is having adequate bowel movements no blood or black stools. He missed dialysis today, has generalized anasarca, currently on room air denies any shortness of breath, no chest pain, no palpitations, has a history of hypercarbic respiratory failure secondary to fluid overload, after missing dialysis. On examination his abdomen is distended, fluid wave present, has an umbilical hernia present, which was reducible, no overlying skin changes, diffusely tender, he was found to have hyperkalemia in the emergency room, given calcium, insulin, D50, EKG showing sinus bradycardia, first-degree AV block, T wave inversion in V6 Hospital Course Hospital Course Patient was admitted to the hospital further evaluation and management of abdominal pain in setting of concerns for mild fluid overload and anasarca because of missed dialysis. Nephrology was consulted and he underwent dialysis. Ultrasound abdomen was done which ruled out significant ascites and paracentesis was not done. Patient's abdominal pain is most likely in setting of moderate to severe right inguinal hernia along with right hydrocele. Care were discussed in detail with inpatient surgical team who suggested patient to have surgical treatment both for right hydrocele and inguinal hernia at the same time for which a urologist is also needed and unfortunately our hospital do not have a urologist right now hence patient was asked to continue to follow-up with his outpatient surgeon. CT abdomen pelvis on admission did not show any concerns for incarceration or small bowel obstruction. He has been discharged in hemodynamically stable condition with advised to continue to follow-up with his outpatient dialysis and with his surgeon for definitive treatment for inguinal hernia and hydrocele. Physical Exam Const: COMMON NORMALS: no acute distress, patient oriented x3 and alert GENERAL APPEARANCE: cooperative ORIENTATION/CONSCIOUSNESS: Yes awake HENMT: COMMON NORMALS: normocephalic and oropharynx normal HEAD & SCALP: normocephalic Eye: COMMON NORMALS: Equal, round and reactive pupils present and EOMs intact bilaterally PUPIL: Yes Equal, round and reactive pupils present Neck/C-Spine: COMMON NORMALS: no JVD Lymph: LYMPHATIC: no lymphadenopathy noted Chest: COMMONS NORMALS: normal inspection of the chest Resp: COMMON NORMALS: normal respiratory effort, No retractions, No use of accessory muscles and clear to auscultation bilaterally AUSCULTATION: clear to auscultation bilaterally Cardio: COMMON NORMALS: no JVD, regular rate, regular rhythm, S1 normal heart sound present, S2 normal heart sound present and No murmurs present (Cardio) RATE: regular rate RHYTHM: regular rhythm HEART SOUNDS: S1 normal heart sound present and S2 normal heart sound present GI: COMMON NORMALS: Soft to palpation INSPECTION: Yes abdominal distension PALPATION: Yes Soft to palpation OTHER: Abdomen soft, distended, fluid wave present, umbilical hernia present no overlying skin changes, reducible, no guarding, rebound, rigidity, does have diffuse tenderness to palpation, : COMMON NORMALS: Yes no CVA tenderness BLADDER/KIDNEY EXAM: Yes no CVA tenderness Back/Pelvis: COMMON NORMALS: no CVA tenderness Extremity: COMMON NORMALS: no joint enlargement and no pedal edema Neuro: COMMON NORMALS: patient oriented x3, CN's II-XII intact bilaterally and moves all extremities SENSORIUM/ORIENTATION: Yes alert Psych: COMMON NORMALS: mental status grossly normal Skin: COMMON NORMALS: no rashes or lesions noted GENERAL SKIN EXAM: no rashes or lesions noted Discharge Data Studies Completed and Pending Completed Studies During Hospitalization Category Date Time Status CT abdomen pelvis wo con [id number] Stat Cat Scan 05/24/23 02:36 Completed XR chest 1V portable [id number] Stat Exams 05/24/23 02:41 Completed US abdomen lmt fluid [id number] Routine Ultrasound 05/25/23 06:00 Completed Radiology Impressions Abdomen/Pelvis CT 05/24/23 02:36 IMPRESSION: Negative for acute abdominopelvic pathology. Chest X-Ray 05/24/23 02:41 IMPRESSION: Suspect mild hazy pulmonary edema changes in the lungs similar to comparison imaging. Laboratory Results WBC 3.52 10^3/uL (3.29-11.43) 05/27/23 04:25 RBC 3.61 10^6/uL (3.85-5.65) L 05/27/23 04:25 Hgb 9.80 g/dL (11.27-16.99) L 05/27/23 04:25 Hct 30.1 % (37-53) L 05/27/23 04:25 MCV 83.4 fl (82-101) 05/27/23 04:25 MCH 27.1 pg (27-33) 05/27/23 04:25 MCHC 32.6 g/dL (30-55) 05/27/23 04:25 RDW 20.8 % (12.1-15.1) H 05/27/23 04:25 Plt Count 156 10^3/cmm (157-399) L 05/27/23 04:25 MPV 10.1 fL (7.4-10.4) 05/27/23 04:25 Neut % (Auto) 63.4 % 05/27/23 04:25 Lymph % (Auto) 13.6 % 05/27/23 04:25 [place] % (Auto) 11.9 % 05/27/23 04:25 Eos % (Auto) 8.5 % 05/27/23 04:25 Baso % (Auto) 2.3 % 05/27/23 04:25 Neut # (Auto) 2.23 10^3/uL (1.8-7.7) 05/27/23 04:25 Lymph # (Auto) 0.5 10^3/uL (0.8-4.8) L 05/27/23 04:25 [place] # (Auto) 0.4 10^3/uL (0.2-0.9) 05/27/23 04:25 Eos # (Auto) 0.3 10^3/uL (0.0-0.8) 05/27/23 04:25 Baso # (Auto) 0.1 10^3/uL (0.0-0.1) 05/27/23 04:25 Nucleated RBC % (auto) 0 % 05/27/23 04:25 Nucleated RBCs # 0.0 /100WBC 05/27/23 04:25 PT 16.50 SECONDS (12.1-14.9) H 05/24/23 01:20 INR 1.29 (0.8-1.2) H 05/24/23 01:20 Specimen Type Arterial 05/24/23 03:15 Sample Site Radial, right 05/24/23 03:15 ABG pH 7.36 (7.35-7.45) 05/24/23 03:15 ABG pCO2 45.9 mmHg (35-45) H 05/24/23 03:15 ABG pO2 68.1 mmHg (80.0-100.0) L 05/24/23 03:15 ABG PO2/FiO2 Ratio 0 05/24/23 03:15 ABG HCO3 25.9 mmol/L (22-26) 05/24/23 03:15 ABG Base Excess 0.1 mmol/L (-2.0-2.0) 05/24/23 03:15 Alexei Test Pos 05/24/23 03:15 Hematocrit 30.5 % (42-52) L 05/24/23 03:15 O2 Delivery Device roomair 05/24/23 03:15 O2 Liters/Min Not Reportable 05/24/23 03:15 FiO2 30.0 % 05/24/23 03:15 Specimen Drawn By [facility] 05/24/23 03:15 Bottoming Machine Operator ID [facility] 05/24/23 03:15 Blood Gas Notified Time 03105/24/23 03:15 Sodium 132 mmol/L (136-145) L 05/27/23 04:25 Potassium 4.8 mmol/L (3.5-5.1) 05/27/23 04:25 Chloride 92 mmol/L (98-107) L 05/27/23 04:25 Carbon Dioxide 29 mmol/L (22-29) 05/27/23 04:25 Anion Gap 15.8 (5-19) 05/27/23 04:25 BUN 31 mg/dL (6-20) H 05/27/23 04:25 Creatinine 7.4 mg/dL (0.7-1.2) H* 05/27/23 04:25 GFR Calculation 8.2 mL/min (90-130) L 05/27/23 04:25 Glucose 95 mg/dL (65-115) 05/27/23 04:25 POC Glucose 66 mg/dL (70-110) L 05/24/23 03:59 Calculated Osmolality 280 mOsm/kg (285-295) L 05/27/23 04:25 Lactic Acid 0.5 mmol/L (0.5-2.2) 05/24/23 01:20 Calcium 10.3 mg/dL (8.5-10.5) 05/27/23 04:25 Total Bilirubin 0.5 mg/dL (0.15-1.2) 05/24/23 01:20 AST 19 U/L (0-40) 05/24/23 01:20 ALT 6 U/L (0-41) 05/24/23 01:20 Alkaline Phosphatase 98 U/L (40-130) 05/24/23 01:20 Creatine Kinase 176 U/L (39-308) 05/24/23 01:20 Troponin T Baseline 131 ng/L (0-15) H* 05/24/23 01:20 Troponin T 120 Minute 134.8 ng/L (0-15) H 05/24/23 03:30 Delta Troponin T 3.8 ABS# (0-10) 05/24/23 03:30 Troponin T Hi Sens 6Hr 128.4 ng/L (0-15) H 05/24/23 07:26 Troponin T Hi Sens 6Hr Delta -2.6 ng/L (0-12) L 05/24/23 07:26 C-Reactive Protein 26.3 mg/L (0.0-4.9) H 05/24/23 01:20 NT-Pro-B Natriuret Pep > 09931 pg/mL (0-125) H 05/24/23 01:20 Total Protein 7.1 g/dL (6.6-8.7) 05/24/23 01:20 Albumin 3.4 g/dL (3.5-5.2) L 05/24/23 01:20 Globulin 3.7 g/dL (1.3-4.6) 05/24/23 01:20 Lipase 14 U/L (13-60) 01/21/24 01:20 Procalcitonin 0.34 ng/mL (0-0.5) 05/24/23 01:20 TSH 5.20 uIU/mL (0.27-4.20) H 05/24/23 01:20 Hep Bs Antigen Non-reactive (Nonreactive) 05/24/23 03:20 Hep Bs Antibody 38.2 (11.5-1000) 05/24/23 03:20 Vitals Last Vital Signs Temp 98.3 F 05/27/23 08:00 Pulse 80 05/27/23 08:00 Resp 15 05/27/23 08:00 BP 158/82 05/27/23 08:31 Pulse Ox 94 05/27/23 08:00 O2 Del Method Room Air 05/27/23 08:00 FiO2 21 05/24/23 04:23 Discharge Plan Discharge Patient Disposition: Home Condition: Stable Prescriptions: New hydrocodone-acetaminophen 5-325 mg Tablet 1 tab PO Q4H PRN (Reason: Moderate Pain) Qty: 10 0RF tramadol 50 mg tablet 50 mg PO Q8H PRN (Reason: pain) Qty: 14 0RF Continued (DME) DME - BIPAP See Rx Instructions .Route .MEDSUPPLY Qty: 1 0RF Rx Instructions: Inspiratory Pressure: 16mmHg Expiratory Pressure: 8 mmHg Will need oxygen bled in to the machine to maintain sats >/= 90%. (DME) DME - Oxygen See Rx Instructions .Route .MEDSUPPLY Qty: 1 0RF Rx Instructions: Supplemental Oxygen bled into BIPAP at 2-3L to maintain oxygen sats at >/= 90%. Auryxia 210 mg iron Tablet See Rx Instructions .ROUTE .COMPLEX Rx Instructions: 420 mg (2 tabs) orally three times a day and 210mg (1 tab) with snacks aspirin 81 mg tablet,delayed release (DR/EC) 81 mg PO DAILY pantoprazole 40 mg tablet,delayed release (DR/EC) 40 mg PO DAILY isosorbide mononitrate 120 mg tablet extended release 24 hr 240 mg PO DAILY RenaPlex-D 800 mcg-12.5 mg -2,000 unit tablet 1 tab PO DAILY losartan 50 mg tablet 100 mg PO DAILY Qty: 60 0RF carvedilol 25 mg tablet 37.5 mg PO Q12H clonidine 0.2 mg/24 hr patch weekly 0.2 mg topical Q7D atorvastatin 40 mg tablet 40 mg PO BEDTIME amlodipine 10 mg tablet 10 mg PO DAILY hydralazine 100 mg tablet 100 mg PO Q8H prasugrel 10 mg tablet 10 mg PO DAILY cyanocobalamin (vitamin B-12) 1,000 mcg capsule 1,000 mcg PO DAILY Qty: 30 0RF naloxone 4 mg/actuation spray,non-aerosol 4 mg intranasal PRN PRN (Reason: overdose) Rx Instructions: ADMINISTER 1 SPRAY ( 4 MG ) IN ONE NOSTRIL ( ALTERNATE NOSTRIL WITH EACH DOSE ) EVERY 5 MINUTES NEEDED FOR OPIOID OVERDOSE SYMPTOMS ondansetron 4 mg tablet,disintegrating 4 mg translingual Q8H PRN (Reason: Nausea And Vomiting) minoxidil 2.5 mg tablet 10 mg PO TID Discontinued doxycycline hyclate 100 mg tablet 100 mg PO BID Patient Comments: pt states he has not picked up this medication yet 05/20/23 Discharge Orders: Discharge Order (Routine); Ordered 05/27/23 Ordered By: Kerwin Platt Referrals: Mal Junior [Primary Care Provider] - 06/01/23 10:00 am Discharge Diet: Usual diet Discharge Activity: Resume usual activity and Increase activity as tolerated Patient Instructions: Dialysis Diet (GEN), Opioid Safety Activity Restrictions/Additional Instructions: Please follow-up with your outpatient surgeon for definitive treatment for right hydrocele and inguinal hernia. Discharge Attestations Time Spent in Discharge Care*: greater than 30 min Specific Discharge Activities: educating patient, discussing with pcp/other providers, discussing with continuous pillowcase cutter/social workers/dc planners, documenting/other paperwork and evaluating patient/reviewing data Status at Discharge: Cognitive status at discharge: cognitively intact, Behavioral status at discharge: cooperative, Functional status at discharge: uses cane/walker, Overall status at discharge: patient is back to baseline Quality Metrics Clinical Quality Measures [ No reported AMI, CVA or VTE this stay] Coding Level of Care Code 33049 Total time (in minutes) for Discharge: 60 Diagnoses End-stage renal disease on hemodialysis N18.6; Z99.2
--- NOTE | 2023-05-27 14:45 | PC.NURSE ---
Discussed discharge follow up appointments, new medications and stopped medications. Patient verbalized understanding and ask for a ride home. Notified Fitting Room Attendant of patient needing a ride. Fitting Room Attendant stated a medicaid ride would be set up. A three hour window is their protocol.
== END 2023-05-27 19:06 | disposition home or self-care (01) | DRG 682 ==
LOC: ER 03:17 → MEDSURG 04:17
PROVIDERS: Hospitalist; Internal Medicine; Admitting Provider Family Medicine; Emergency Provider Emergency Medicine; PCP Family Medicine; Visit Provider Student in an Organized Health Care Education/Training Program
DX: I12.0 Hypertensive chronic kidney disease with stage 5 chronic kidney disease or end stage renal disease (principal); N18.6 End stage renal disease; R18.8 Other ascites; J96.12 Chronic respiratory failure with hypercapnia; E87.1 Hypo-osmolality and hyponatremia; N43.3 Hydrocele, unspecified; K40.90 Unilateral inguinal hernia, without obstruction or gangrene, not specified as recurrent; K74.60 Unspecified cirrhosis of liver; E78.5 Hyperlipidemia, unspecified; E87.5 Hyperkalemia; I44.0 Atrioventricular block, first degree; F32.A Depression, unspecified; E87.70 Fluid overload, unspecified; J44.9 Chronic obstructive pulmonary disease, unspecified; F17.210 Nicotine dependence, cigarettes, uncomplicated; I25.10 Atherosclerotic heart disease of native coronary artery without angina pectoris; I27.20 Pulmonary hypertension, unspecified; K42.9 Umbilical hernia without obstruction or gangrene; D63.1 Anemia in chronic kidney disease; Z91.158 Patient's noncompliance with renal dialysis for other reason; Z86.711 Personal history of pulmonary embolism; Z95.5 Presence of coronary angioplasty implant and graft; Z86.14 Personal history of Methicillin resistant Staphylococcus aureus infection; Z99.2 Dependence on renal dialysis; Z79.82 Long term (current) use of aspirin
CPT/HCPCS: 36415; 36416; 36600; 71045; 74176; 76705; 80048; 80053; 82550; 82803; 82962; 83605; 83690; 83880; 84145; 84443; 84484; 85025; 85610; 86140; 86706; 87340; 93005; 94664; 96372; 96374; 96375; 99285; C9113; J0612; J1170; J1644; J1815; J2270; J2405; Q3014; Q4081

== ENCOUNTER 2023-05-30 12:00 | Observation (INO) | payer MEDICARE, MEDICAID, SELFPAY ==
[2023-05-30 12:18] VITALS: BP 155/86; PULSE 77; RESP 18; TEMP 36.8; O2SAT 93; BMI 24.4
--- NOTE | 2023-05-30 13:18 | ED_ITS ---
HPI - Nausea/Vomiting/Diarrhea 2 General: Chief complaint: Nausea/Vomiting/Diarrhea Stated complaint: vomiting Time Seen by Provider: 05/30/23 13:02 Source: patient Mode of arrival: ambulatory Limitations: no limitations History of Present Illness: Patient presents emergency department today for evaluation and treatment of new onset vomiting, diarrhea, and worsening pain of his right inguinal hernia. Patient reports he has had his hernias for quite some time. Chart review confirms this and indicates he is actually been seen for hernia pain a couple of times in the last few weeks. Chart review also shows that he is not a candidate for surgery as surgeons have declined to operate due to his underlying chronic health conditions-per patient report. Patient states that all night long he has been vomiting. He states he lost count, he times he vomited. He is vomiting only liquidy material that is yellow and green in color. No blood. Patient also reports loose stools but states he has not tried to count them and has not looked at color or consistency. Patient has multiple chronic health conditions including COPD with chronic respiratory failure. Patient is supposed to be on oxygen but left his oxygen in the car upon his arrival. He is currently on 2 L by nasal cannula in the room and oxygen saturation is 93%. Patient also has chronic renal failure for which she undergoes hemodialysis. Last hemodialysis was Thursday. He states he was at dialysis today and they sent him here due to his symptoms. Patient reports he took a Zofran prior to coming in. Abdominal pain is very generalized and vague and reports right inguinal hernia pain. He denies any size or color change to his right inguinal hernia. Patient denies any known direct ill contacts. He has had a little cough and congestion recently and suspects fever but has not taken his temperature at home. Review of Systems 2 General: Reports: 10 or more systems reviewed and unremarkable except in HPI and below PFSH ED 2 PFSH: Medical History Acute and chronic respiratory failure with hypoxia Patient under care of multiple providers Hypertensive urgency History of cardiovascular stress test 07/2022 at [facility] perfusion imaging probably normal, no reversible defects, small fixed defect in apical anterior wall, EF 54%, nonischemic response to stress by EKG criteria Depression Epididymitis 06/2022 Pulmonary hypertension Uses bilevel positive airway pressure (BPAP) ventilation at home Umbilical hernia History of home oxygen therapy History of coronary angiogram 11/2021 - patent stent Inguinal hernia Anxiety Chronic respiratory failure on home oxygen and bipap Low back pain Nicotine dependence, cigarettes, with other nicotine-induced disorders Generalized anxiety disorder with panic attacks ESRD on dialysis Atherosclerosis of coronary artery Stent and balloon angioplasty to proximal 1 OM branch Chronic abdominal pain COVID 05/25 Hypertensive emergency recurrent episodes Urethral stricture Abdominal ascites history of intermittent paracentesis, transudative fluid; prior work up has included negative biopsy, ceruloplasmin level normal, low iron, high ferritin, normal TIBC, negative HIV, hepatitis panel negative, JESÚS/SCL 70/double-stranded DNA antibodies negative, Alpha-fetoprotein level unremarkable, nonalcoholic by history, has hepatomegaly and splenomegaly Pulmonary embolism 09/21 CTA inconclusive for very tiny peripheral LEFT lower lobe pulmonary artery sub segmental emboli versus poor opacification. Anemia chronic kidney disease Congestive heart failure preserved ejection fraction COPD (chronic obstructive pulmonary disease) Arteriovenous fistula for hemodialysis in place, secondary Degenerative disc disease, lumbar Hypertension uncontrolled Surgical History Stented coronary artery H/O hand surgery Amputation right 2&3 fingers 2017 History of adenoidectomy Family History Other Hypertension Social History Smoking and tobacco/nicotine status: current every day tobacco/nicotine user cigarettes Packs smoked per day: 1.5 Years cigarettes smoked: 21 [ Other cigarette details: started age 20, currently 0.5ppd ] Alcohol intake: never Substance/Drug Use: never Number of children: 3 Current occupational status: disabled Do you think of yourself as: Straight/Heterosexual Physical Exam 2 Const: COMMON NORMALS: patient oriented x3 and alert OTHER: Patient answers his own history. He appears extremely fatigued and obviously does not feel well. He appears chronically cachectic. HENMT: COMMON NORMALS: normocephalic, atraumatic, hearing grossly normal bilaterally and moist oral mucous membranes HEAD & SCALP: normocephalic and atraumatic Eye: COMMON NORMALS: Equal, round and reactive pupils present, EOMs intact bilaterally and conjunctivae normal CONJUNCTIVA: Yes conjunctivae normal P UPIL: Yes Equal, round and reactive pupils present Neck/C-Spine: COMMON NORMALS: full ROM and no JVD Lymph: LYMPHATIC: no lymphadenopathy noted Resp: COMMON NORMALS: normal respiratory effort, No retractions, No use of accessory muscles and clear to auscultation bilaterally AUSCULTATION: clear to auscultation bilaterally Cardio: COMMON NORMALS: no JVD, regular rate and regular rhythm RATE: r egular rate RHYTHM: regular rhythm GI: OTHER: Abdomen is round. Patient has an umbilical hernia approximately 2 and half centimeters in diameter without discoloration noted. It is nontender. Patient has some bruising noted to the right lower abdominal skin without underlying induration. Abdomen is soft. Bowel sounds are diminished throughout. : OTHER: Patient has a very large right inguinal hernia extending down into the right side of the scrotum. No discoloration of the skin appreciated. Patient is able to tolerate movement and manipulation of the area for examination without severe discomfort. Otherwise, no specific tenderness on palpation to the abdomen noted. Back/Pelvis: COMMON NORMALS: no thoracic nor lumbar tenderness and thoraco- lumbar ROM normal Extremity: COMMON NORMALS: normal to inspection, full ROM and capillary refill normal OTHER: Patient is able to sit and stand independently. He is independently ambulatory and weightbearing. Patient has an obvious fistula to his left upper extremity. Neuro: COMMON NORMALS: patient oriented x3 SENSORIUM/ORIENTATION: Yes alert Psych: COMMON NORMALS: mental status grossly normal, Normal thought process present, cooperative, normal affect and activity/motor behavior normal T HOUGHT PROCESS: Normal thought process present Skin: COMMON NORMALS: no rashes or lesions noted and no wounds GENERAL SKIN EXAM: no rashes or lesions noted Course 2 Vital Signs: Vital signs: Vital Signs Temperature 98.3 F 05/30/23 12:18 Pulse Rate 77 05/30/23 12:18 Respiratory Rate 18 05/30/23 12:18 Blood Pressure 155/86 05/30/23 12:18 Pulse Oximetry 93 05/30/23 12:18 Oxygen Delivery Me thod Nasal Cannula 05/30/23 12:18 Oxygen Flow Rate 2 05/30/23 12:18 MDM - Nausea/Vomiting/Diarrhea Medical Decision Making Patient presents today for episodes of vomiting and overall ill feeling. Patient indicated he was told to come here by the dialysis nurse because of his symptoms instead of having his dialysis however, with his evaluation today, it is extremely obvious patient is in desperate need of having dialysis today. Patient is COVID and influenza negative. Considering his baseline and known chronic disease history, patient's labs do not indicate anything out of the ordinary. Patient has not had vomiting while he was here. I have been discussing the case regularly with Dr. Child. As patient does not appear to have anything contagious, we are attempting to find him dialysis. However, his typical dialysis provider indicated that they could not provide him dialysis today. For that reason, we did reach out to Dr. Villegas who, knowing this patient well, indicated that this is the patient's typical baseline and agrees that the patient just needs dialysis. After contacting the wash house worker a plan was made to have the patient taken upstairs, receive dialysis, and then be discharged home. Patient will leave this department under the care of Dr. Villegas for monitoring of his dialysis and determining if patient is appropriate for discharge at that time. Differential Diagnosis Unlikely traveler's diarrhea, food poisoning, gastroenteritis, clostridium difficile infection or drug-induced nausea and vomiting Lab Data 05/30/23 13:17 05/30/23 13:17 Laboratory Results WBC 4.17 10^3/uL (3.29-11.43) 05/30/23 13:17 RBC 3.75 10^6/uL (3.85-5.65) L 05/30/23 13:17 Hgb 10.30 g/dL (11.27-16.99) L 05/30/23 13:17 Hct 31.2 % (37-53) L 05/30/23 13:17 MCV 83.2 fl (82-101) 05/30/23 13:17 MCH 27.5 pg (27-33) 05/30/23 13:17 MCHC 33.0 g/dL (30-55) 05/30/23 13:17 RDW 20.6 % (12.1-15.1) H 05/30/23 13:17 Plt Count 154 10^3/cmm (157-399) L 05/30/23 13:17 MPV 9.3 fL (7.4-10.4) 05/30/23 13:17 Neut % (Auto) 70.8 % 05/30/23 13:17 Lymph % (Auto) 11.3 % 05/30/23 13:17 Kingfisher % (Auto) 6.7 % 05/30/23 13:17 Eos % (Auto) 9.1 % 05/30/23 13:17 Baso % (Auto) 1.9 % 05/30/23 13:17 Neut # (Auto) 2.95 10^3/uL (1.8-7.7) 05/30/23 13:17 Lymph # (Auto) 0.5 10^3/uL (0.8-4.8) L 05/30/23 13:17 Kingfisher # (Auto) 0.3 10^3/uL (0.2-0.9) 05/30/23 13:17 Eos # (Auto) 0.4 10^3/uL (0.0-0.8) 05/30/23 13:17 Baso # (Auto) 0.1 10^3/uL (0.0-0.1) 05/30/23 13:17 Nucleated RBC % (auto) 0 % 05/30/23 13:17 Nucleated RBCs # 0.0 /100WBC 05/30/23 13:17 Specimen Type Venous 05/30/23 13:08 Sample Site Na 05/30/23 13:08 Alexei Test N/a 05/30/23 13:08 VBG pH 7.38 (7.32-7.42) 05/30/23 13:08 VBG pCO2 48.0 mmHg (41-51) 05/30/23 13:08 VBG pO2 62.8 mmHg (25-40) H 05/30/23 13:08 VBG HCO3 28.2 mmol/L (24-28) H 05/30/23 13:08 VBG Base Excess 2.5 mmol/L (-3.0-3.0) 05/30/23 13:08 VBG Hematocrit 32.8 % (42-52) L 05/30/23 13:08 O2 Delivery Device None 05/30/23 13:08 Inspecting Machine Adjuster ID Cak 05/30/23 13:08 Sodium 130 mmol/L (136-145) L 05/30/23 13:17 Potassium 6.2 mmol/L (3.5-5.1) H 05/30/23 13:17 Chloride 87 mmol/L (98-107) L 05/30/23 13:17 Carbon Dioxide 26 mmol/L (22-29) 05/30/23 13:17 Anion Gap 23.2 (5-19) H 05/30/23 13:17 BUN 61 mg/dL (6-20) H 05/30/23 13:17 Creatinine 11.9 mg/dL (0.7-1.2) H* 05/30/23 13:17 GFR Calculation 4.7 mL/min (90-130) L 05/30/23 13:17 Glucose 59 mg/dL (65-115) L 05/30/23 13:17 Calculated Osmolality 285 mOsm/kg (285-295) 05/30/23 13:17 Lactic Acid 0.4 mmol/L (0.5-2.2) L 05/30/23 13:17 Calcium 10.9 mg/dL (8.5-10.5) H 05/30/23 13:17 Total Bilirubin 0.5 mg/dL (0.15-1.2) 05/30/23 13:17 AST 12 U/L (0-40) 05/30/23 13:17 ALT < 5 U/L (0-41) 05/30/23 13:17 Alkaline Phosphatase 110 U/L (40-130) 05/30/23 13:17 Total Protein 7.5 g/dL (6.6-8.7) 05/30/23 13:17 Albumin 3.7 g/dL (3.5-5.2) 05/30/23 13:17 Globulin 3.8 g/dL (1.3-4.6) 05/30/23 13:17 Lipase 12 U/L (13-60) L 05/30/23 13:17 Procalcitonin 0.54 ng/mL (0-0.5) H 05/30/23 13:17 Influenza Type A Ag negative (Negative) 05/30/23 13:30 Influenza Type B Ag negative (Negative) 05/30/23 13:30 SARS-CoV-2 Ag (Rapid) negative (Negative) 05/30/23 13:30 No radiology studies performed this visit Discharge Plan Discharge Patient Disposition: Placed in Observation Clinical Impression: End-stage renal disease on hemodialysis, Vomiting Condition: Stable Prescriptions: No Action (DME) DME - BIPAP See Rx Instructions .Route .MEDSUPPLY Qty: 1 0RF Rx Instructions: Inspiratory Pressure: 16mmHg Expiratory Pressure: 8 mmHg Will need oxygen bled in to the machine to maintain sats >/= 90%. (DME) DME - Oxygen See Rx Instructions .Route .MEDSUPPLY Qty: 1 0RF Rx Instructions: Supplemental Oxygen bled into BIPAP at 2-3L to maintain oxygen sats at >/= 90%. Auryxia 210 mg iron Tablet See Rx Instructions .ROUTE .COMPLEX Rx Instructions: 420 mg (2 tabs) orally three times a day and 210mg (1 tab) with snacks aspirin 81 mg tablet,delayed release (DR/EC) 81 mg PO DAILY pantoprazole 40 mg tablet,delayed release (DR/EC) 40 mg PO DAILY isosorbide mononitrate 120 mg tablet extended release 24 hr 240 mg PO DAILY RenaPlex-D 800 mcg-12.5 mg -2,000 unit tablet 1 tab PO DAILY carvedilol 25 mg tablet 37.5 mg PO Q12H clonidine 0.2 mg/24 hr patch weekly 0.2 mg topical Q7D atorvastatin 40 mg tablet 40 mg PO BEDTIME amlodipine 10 mg tablet 10 mg PO DAILY hydralazine 100 mg tablet 100 mg PO Q8H prasugrel 10 mg tablet 10 mg PO DAILY cyanocobalamin (vitamin B-12) 1,000 mcg capsule 1,000 mcg PO DAILY Qty: 30 0RF ondansetron 4 mg tablet,disintegrating 4 mg translingual Q8H PRN (Reason: Nausea And Vomiting) minoxidil 2.5 mg tablet 10 mg PO TID hydrocodone-acetaminophen 5-325 mg Tablet 1 tab PO Q4H PRN (Reason: Moderate Pain) Qty: 10 0RF tramadol 50 mg tablet 50 mg PO Q8H PRN (Reason: pain) Qty: 14 0RF ciprofloxacin HCl 500 mg tablet 500 mg PO DAILY Referrals: Mal Junior [Primary Care Provider] - Coding Level of Care Code ED Salesperson [employer] for Chg Roxi
[2023-05-30 13:21] LABS: Base Excess VBG 2.5 mmol/L (-3.0-3.0); Blood Gas Operator Identificat CAK; Blood Gas Sample Type Venous; HCO3 VBG 28.2 mmol/L (24-28); PO2 VBG 62.8 mmHg (25-40); Venous Blood Gas Hematocrit 32.8 % (42-52); pH VBG 7.38 (7.32-7.42)
[2023-05-30 13:22] LABS: Basophils # 0.1 10^3/uL (0.0-0.1); Basophils % 1.9 %; Eosinophils # 0.4 10^3/uL (0.0-0.8); Eosinophils % 9.1 %; Hematocrit 31.2 % (37-53); Lymphocytes # 0.5 10^3/uL (0.8-4.8); Lymphocytes % 11.3 %; Mean Corpuscular Hemoglobin 27.5 pg (27-33); Mean Corpuscular Volume 83.2 fl (82-101); Mean Platelet Volume 9.3 fL (7.4-10.4); Monocytes # 0.3 10^3/uL (0.2-0.9); Monocytes % 6.7 %; Neutrophils # 2.95 10^3/uL (1.8-7.7); Neutrophils % 70.8 %; Nucleated Red Blood Cells % 0 %; Platelet Count 154 10^3/cmm (157-399); Red Blood Count 3.75 10^6/uL (3.85-5.65); Red Cell Distribution Width 20.6 % (12.1-15.1); White Blood Count 4.17 10^3/uL (3.29-11.43)
[2023-05-30 13:40] LABS: Alanine Aminotransferase < 5 U/L (0-41); Albumin Level 3.7 g/dL (3.5-5.2); Alkaline Phosphatase 110 U/L (40-130); Anion Gap 23.2 (5-19); Aspartate Amino Transferase 12 U/L (0-40); Blood Urea Nitrogen 61 mg/dL (6-20); Calcium 10.9 mg/dL (8.5-10.5); Carbon Dioxide 26 mmol/L (22-29); Chloride 87 mmol/L (98-107); Globulin 3.8 g/dL (1.3-4.6); Glomerular Filtration Rate 4.7 mL/min (90-130); Glucose 59 mg/dL (65-115); Lipase 12 U/L (13-60); Osmolality Calculated 285 mOsm/kg (285-295); Potassium 6.2 mmol/L (3.5-5.1); Sodium 130 mmol/L (136-145); Total Bilirubin 0.5 mg/dL (0.15-1.2); Total Protein 7.5 g/dL (6.6-8.7)
[2023-05-30 13:41] LABS: Lactic Sepsis W/Reflex 0.4 mmol/L (0.5-2.2)
[2023-05-30 13:47] LABS: Procalcitonin 0.54 ng/mL (0-0.5)
--- NOTE | 2023-05-30 13:47 | PC.NURSE ---
creatinine 11.9, received by lab at 1344, by this nurse
[2023-05-30] MEDS: metoclopramide 5 mg/mL SDV 2 mL 10 MG IVP (13:50)
[2023-05-30 14:16] LABS: Influenza A by IFA negative (Negative); Influenza B by IFA negative (Negative); SARS Covid-2 Antigen negative (Negative)
[2023-05-30] MEDS: morphine 4 mg/mL SDV 1 mL IVP (14:23)
--- NOTE | 2023-05-30 14:34 | PC.PHAR ---
PTS' SISTER LARISA [phone] SETS UP PT MEDS. PHONE CALLS TODAY HAVE BEEN UNANSWERED WITH NO VOICE MAIL AVAILABLE. MED REC DONE FROM EXTERNAL MED LIST WITH LAST FILL DATES ADDED. PT STATES TOOK AM MEDS TODAY BUT THREW THEM ALL UP. 05/30/23
--- NOTE | 2023-05-30 15:40 | P.CONIM_ITS ---
Providers/Reason For Consult 2 Consulting Physician/Specialty*: kommana/nephrology Reason for Consult*: esrd Primary Care Provider: Mal Junior History of Present Illness History of Present Illness Mal Gibbs is a 42 year old male Patient is a 42-year-old male well- known to the service due to multiple prior admissions with past medical history of acute on chronic respiratory failure, liver cirrhosis with frequent paracentesis, hypertension, end-stage renal disease on dialysis per [facility] schedule and noncompliance with meds and dialysis often he presented to the emergency department today due to nausea and vomiting. Also complains of having loose stools. Patient missed dialysis yesterday. Lab data significant for potassium of 6.2, sodium 130, hemoglobin 10.3, creatinine of 11.9. Review of Systems 2 Narrative: negative Medications/Allergies Home Medications Medication Instructions Recorded Confirmed Last Taken Type ferric citrate 210 mg iron tablet See Rx Instructions .Route .COMPLEX 11/03/21 05/30/23 05/30/23 History (Auryxia) aspirin 81 mg tablet,delayed 81 mg PO DAILY 02/21/22 05/30/23 05/30/23 History release pantoprazole 40 mg tablet,delayed 40 mg PO DAILY 02/21/22 05/30/23 05/30/23 History release DME - BIPAP #1 ea 02/25/22 05/30/23 05/05/23 Rx DME - Oxygen #1 ea 02/25/22 05/30/23 05/05/23 Rx cyanocobalamin (vitamin B-12) 1,000 mcg PO DAILY #30 caps 08/07/22 05/30/23 05/20/23 Rx 1,000 mcg capsule isosorbide mononitrate 120 mg 240 mg PO DAILY 10/01/22 05/30/23 05/30/23 History tablet,extended release 24 hr vit B,C-folic ac 800 mcg-zinc 12.5 1 tab PO DAILY 10/01/22 05/30/23 05/30/23 History mg-selen-D3 2,000 unit-vit E tablet (RenaPlex-D) amlodipine 10 mg tablet 10 mg PO DAILY 01/09/23 05/30/23 05/30/23 History atorvastatin 40 mg tablet 40 mg PO BEDTIME 01/09/23 05/30/23 05/29/23 History carvedilol 25 mg tablet 37.5 mg PO Q12H 01/09/23 05/30/23 05/30/23 History clonidine 0.2 mg/24 hr weekly 0.2 mg topical Q7D 01/09/23 05/30/23 04/20/23 History transdermal patch hydralazine 100 mg tablet 100 mg PO Q8H 01/09/23 05/30/23 05/30/23 History prasugrel 10 mg tablet 10 mg PO DAILY 01/09/23 05/30/23 05/30/23 History minoxidil 2.5 mg tablet 10 mg PO TID 05/19/23 05/30/23 05/30/23 History ondansetron 4 mg disintegrating 4 mg translingual Q8H PRN Nausea 05/19/23 05/30/23 05/19/23 History tablet And Vomiting hydrocodone 5 mg-acetaminophen 325 1 tab PO Q4H PRN Moderate Pain #10 05/27/23 05/30/23 Unknown Rx mg tablet tabs tramadol 50 mg tablet 50 mg PO Q8H PRN pain #14 tabs 05/27/23 05/30/23 Unknown Rx ciprofloxacin HCl 500 mg tablet 500 mg PO DAILY 05/30/23 05/30/23 05/30/23 History Allergies Allergy/AdvReac Type Severity Reaction Status Date / Time spironolactone Allergy Intermediate facial Verified 05/26/23 09:24 swelling lisinopril Allergy ADR-Swelling Verified 05/26/23 09:24 of the Eye nifedipine Allergy ALGY-Swell Verified 05/26/23 09:24 Lip/Tongue/Throat PFSH Acute 2 PFSH: Medical History Acute and chronic respiratory failure with hypoxia Patient under care of multiple providers Hypertensive urgency History of cardiovascular stress test 07/2022 at [facility] perfusion imaging probably normal, no reversible defects, small fixed defect in apical anterior wall, EF 54%, nonischemic response to stress by EKG criteria Depression Epididymitis 06/2022 Pulmonary hypertension Uses bilevel positive airway pressure (BPAP) ventilation at home Umbilical hernia History of home oxygen therapy History of coronary angiogram 11/2021 - patent stent Inguinal hernia Anxiety Chronic respiratory failure on home oxygen and bipap Low back pain Nicotine dependence, cigarettes, with other nicotine-induced disorders Generalized anxiety disorder with panic attacks ESRD on dialysis Atherosclerosis of coronary artery Stent and balloon angioplasty to proximal 1 OM branch Chronic abdominal pain COVID 05/25 Hypertensive emergency recurrent episodes Urethral stricture Abdominal ascites history of intermittent paracentesis, transudative fluid; prior work up has included negative biopsy, ceruloplasmin level normal, low iron, high ferritin, normal TIBC, negative HIV, hepatitis panel negative, JESÚS/SCL 70/double-stranded DNA antibodies negative, Alpha-fetoprotein level unremarkable, nonalcoholic by history, has hepatomegaly and splenomegaly Pulmonary embolism 09/21 CTA inconclusive for very tiny peripheral LEFT lower lobe pulmonary artery sub segmental emboli versus poor opacification. Anemia chronic kidney disease Congestive heart failure preserved ejection fraction COPD (chronic obstructive pulmonary disease) Arteriovenous fistula for hemodialysis in place, secondary Degenerative disc disease, lumbar Hypertension uncontrolled Surgical History Stented coronary artery H/O hand surgery Amputation right 2&3 fingers 2017 History of adenoidectomy Family History Other Hypertension Social History Smoking and tobacco/nicotine status: current every day tobacco/nicotine user cigarettes Packs smoked per day: 1.5 Years cigarettes smoked: 21 [ Other cigarette details: started age 20, currently 0.5ppd ] Alcohol intake: never Substance/Drug Use: never Number of children: 3 Current occupational status: disabled Do you think of yourself as: Straight/Heterosexual Vitals/I&O/Wt Last Vital Signs Temp 98.3 F 05/30/23 12:18 Pulse 77 05/30/23 12:18 Resp 18 05/30/23 12:18 BP 155/86 05/30/23 12:18 Pulse Ox 93 05/30/23 12:18 O2 Del Method Nasal Cannula 05/30/23 12:18 O2 Flow Rate 2 05/30/23 12:18 Weight last 48 hrs Weight 83.915 kg Data 05/30/23 13:17 05/30/23 13:17 A&P Assessment and plan (1) End-stage renal disease on hemodialysis: Plan 1. End-stage renal disease, missed hemodialysis now presented with hyperkalemia. Plan for emergent HD today, run on 1K bath 2. History of hypertension- blood pressure 3. Anemia: TREY with HD 4. History of liver cirrhosis 5. Nausea vomiting and loose stools, management per primary team Patient evaluated using audiovisual cart. Time spent 40 minutes Consult Attestations 2 Medical Necessity Statement: per meditedne team Coding Level of Care Code Acute Code for Chg Fwd Diagnoses End-stage renal disease on hemodialysis N18.6; Z99.2
--- NOTE | 2023-05-30 17:57 | XRR_ITS ---
PROCEDURE INFORMATION: Exam: XR Abdomen Exam date and time: 05/30/2023 7:54 PM Age: 42 years old Clinical indication: Patient HX: Abdominal pain/distention; Eval for sbo; Recurrent ascites; Esrd; Cirrhosis; HX umbilical hernia TECHNIQUE: Imaging protocol: Radiologic exam of the abdomen. Views: Frontal supine view of the abdomen. 1 View. COMPARISON: CT abdomen pelvis wo con [id number] 05/24/2023 2:50 AM FINDINGS: Heart/Mediastinum: Stable marked enlargement of the cardiac silhouette. Lungs: Visualized lungs are clear. Gastrointestinal tract: No evidence for bowel obstruction or perforation. Medial displacement of bowel loops, likely from ascites. Intraperitoneal space: No free intraperitoneal air. Organs: No organomegaly. Bones/joints: Unremarkable. XR/XR abdomen 1V* [id number] IMPRESSION: 1. No evidence for bowel obstruction or perforation. 2. Medial displacement of bowel loops, likely from ascites.
--- NOTE | 2023-05-30 18:03 | P.HP_ITS ---
Providers/Chief Complaint 2 Admitting Physician: Tiarra Villegas MD Primary Care Provider: Mal Junior Chief Complaint: vomiting History of Present Illness Mal Gibbs is a 42 year old male with known end-stage renal disease, history of recurrent admissions here, chronic respiratory failure, liver cirrhosis with recurrent paracentesis, hypertension hyperlipidemia presented to the emergency room after having missed dialysis. Patient states that he had been experiencing some vomiting and dialysis center asked him to go to the hospital instead of coming to the HD center. He presented here complaining of abdominal pain nausea vomiting. Creatinine was higher than recent baseline at 11. He has hyperkalemia. He appears to be lethargic when seen however has also just received 4 mg iv morphine for pain. He has long standing abdominal hernia without signs of incarecration today, no recent changes in appearance. Judson check AXR ro assess for ileus Review of Systems 2 General: Reports: 10 or more systems reviewed and unremarkable except in HPI and below Const: Denies: fever(s), chills or body aches Eyes: Denies: change in vision, blurry vision or photophobia ENMT: Reports: hoarseness; Denies: throat pain, enlarged tonsils, odynophagia or nasal congestion Card: Denies: chest pain, palpitations, irregular heart rhythm, edema, swelling of feet/ankles, lightheadedness, pre-syncope, dyspnea on exertion or orthopnea Resp: Denies: dyspnea, productive cough, non-productive cough, wheezing, stridor, pain on inspiration, change in phlegm color, hemoptysis or chest congestion GI: Denies: abdominal pain, nausea, vomiting, hematemesis, coffee ground emesis, dysphagia, heartburn, diarrhea, constipation, GI cramping, change in stool character, hematochezia or melena : Denies: flank pain, dysuria, urinary frequency, urinary urgency, urinary hesitancy or hematuria Musc: Denies: neck pain, back pain, extremity pain, joint swelling, joint warmth or deformity Neuro: Denies: headache(s), numbness in extremities, weakness in extremities, sensory changes, difficulty walking, frequent falls, dizziness, vertigo, behavioral changes, Slurred speech present or seizure-like activity Psych: Denies: anxiety, depression, suicidal ideation or homicidal ideation Endo: Denies: polyuria, polydipsia, tired all the time, cold intolerance or hot flashes [place]/Lymph: Denies: easy bruising or easy bleeding Medications/Allergies Home Medications Medication Instructions Recorded Confirmed Last Taken Type ferric citrate 210 mg iron tablet See Rx Instructions .Route .COMPLEX 11/03/21 05/30/23 05/30/23 History (Auryxia) aspirin 81 mg tablet,delayed 81 mg PO DAILY 02/21/22 05/30/23 05/30/23 History release pantoprazole 40 mg tablet,delayed 40 mg PO DAILY 02/21/22 05/30/23 05/30/23 History release DME - BIPAP #1 ea 02/25/22 05/30/23 05/05/23 Rx DME - Oxygen #1 ea 02/25/22 05/30/23 05/05/23 Rx cyanocobalamin (vitamin B-12) 1,000 mcg PO DAILY #30 caps 08/07/22 05/30/23 05/20/23 Rx 1,000 mcg capsule isosorbide mononitrate 120 mg 240 mg PO DAILY 10/01/22 05/30/23 05/30/23 History tablet,extended release 24 hr vit B,C-folic ac 800 mcg-zinc 12.5 1 tab PO DAILY 10/01/22 05/30/23 05/30/23 History mg-selen-D3 2,000 unit-vit E tablet (RenaPlex-D) amlodipine 10 mg tablet 10 mg PO DAILY 01/09/23 05/30/23 05/30/23 History atorvastatin 40 mg tablet 40 mg PO BEDTIME 01/09/23 05/30/23 05/29/23 History carvedilol 25 mg tablet 37.5 mg PO Q12H 01/09/23 05/30/23 05/30/23 History clonidine 0.2 mg/24 hr weekly 0.2 mg topical Q7D 01/09/23 05/30/23 04/20/23 History transdermal patch hydralazine 100 mg tablet 100 mg PO Q8H 01/09/23 05/30/23 05/30/23 History prasugrel 10 mg tablet 10 mg PO DAILY 01/09/23 05/30/23 05/30/23 History minoxidil 2.5 mg tablet 10 mg PO TID 05/19/23 05/30/23 05/30/23 History ondansetron 4 mg disintegrating 4 mg translingual Q8H PRN Nausea 05/19/23 05/30/23 05/19/23 History tablet And Vomiting hydrocodone 5 mg-acetaminophen 325 1 tab PO Q4H PRN Moderate Pain #10 05/27/23 05/30/23 Unknown Rx mg tablet tabs tramadol 50 mg tablet 50 mg PO Q8H PRN pain #14 tabs 05/27/23 05/30/23 Unknown Rx ciprofloxacin HCl 500 mg tablet 500 mg PO DAILY 05/30/23 05/30/23 05/30/23 History Allergies Allergy/AdvReac Type Severity Reaction Status Date / Time spironolactone Allergy Intermediate facial Verified 05/26/23 09:24 swelling lisinopril Allergy ADR-Swelling Verified 05/26/23 09:24 of the Eye nifedipine Allergy ALGY-Swell Verified 05/26/23 09:24 Lip/Tongue/Throat PFSH Acute 2 PFSH: Medical History Acute and chronic respiratory failure with hypoxia Patient under care of multiple providers Hypertensive urgency History of cardiovascular stress test 07/2022 at [facility] perfusion imaging probably normal, no reversible defects, small fixed defect in apical anterior wall, EF 54%, nonischemic response to stress by EKG criteria Depression Epididymitis 06/2022 Pulmonary hypertension Uses bilevel positive airway pressure (BPAP) ventilation at home Umbilical hernia History of home oxygen therapy History of coronary angiogram 11/2021 - patent stent Inguinal hernia Anxiety Chronic respiratory failure on home oxygen and bipap Low back pain Nicotine dependence, cigarettes, with other nicotine-induced disorders Generalized anxiety disorder with panic attacks ESRD on dialysis Atherosclerosis of coronary artery Stent and balloon angioplasty to proximal 1 OM branch Chronic abdominal pain COVID 05/25 Hypertensive emergency recurrent episodes Urethral stricture Abdominal ascites history of intermittent paracentesis, transudative fluid; prior work up has included negative biopsy, ceruloplasmin level normal, low iron, high ferritin, normal TIBC, negative HIV, hepatitis panel negative, JESÚS/SCL 70/double-stranded DNA antibodies negative, Alpha-fetoprotein level unremarkable, nonalcoholic by history, has hepatomegaly and splenomegaly Pulmonary embolism 09/21 CTA inconclusive for very tiny peripheral LEFT lower lobe pulmonary artery sub segmental emboli versus poor opacification. Anemia chronic kidney disease Congestive heart failure preserved ejection fraction COPD (chronic obstructive pulmonary disease) Arteriovenous fistula for hemodialysis in place, secondary Degenerative disc disease, lumbar Hypertension uncontrolled Surgical History Stented coronary artery H/O hand surgery Amputation right 2&3 fingers 2017 History of adenoidectomy Family History Other Hypertension Social History Smoking and tobacco/nicotine status: current every day tobacco/nicotine user cigarettes Packs smoked per day: 1.5 Years cigarettes smoked: 21 [ Other cigarette details: started age 20, currently 0.5ppd ] Alcohol intake: never Substance/Drug Use: never Number of children: 3 Current occupational status: disabled Do you think of yourself as: Straight/Heterosexual Vitals/I&O/Wt Last Vital Signs Temp 98.3 F 05/30/23 12:18 Pulse 77 05/30/23 12:18 Resp 18 05/30/23 12:18 BP 155/86 05/30/23 12:18 Pulse Ox 93 05/30/23 12:18 O2 Del Method Nasal Cannula 05/30/23 12:18 O2 Flow Rate 2 05/30/23 12:18 Weight last 48 hrs Weight 83.915 kg Physical Exam 2 Narrative: General: No acute distress, AO x3, however lethargic, drifts back to sleep, seen on HD , wakes up easily to answer all questions HEENT: PERRLA, pupils bilaterally equal and reactive, pallors not present Chest: Normal vesicular breath sounds, no added sounds, equal good air entry bilaterally CVS: S1-S2 regular, no murmurs, no tachycardia, no gallops, no rubs Abdomen: Soft, nontender, no organomegaly, bowel sounds present Neuro: No focal deficits, no facial deformity, AO x3, power 5/5 in all limbs Data 05/31/23 05:01 05/31/23 05:01 A&P Assessment and plan (1) Noncompliance: (2) End-stage renal disease on hemodialysis: uremia, hyperkalemia, nausea, vomiting, hypervolemia and lethargy currently related to missed dialysis. Plan on dialysis session this evening. Will reassess afterwards to see if lethargy improves. Currently patient is also received 4 mg of morphine which may be contributing to his somnolence. Repeat labs in a.m. after dialysis and reassess. Attestations 2 Medical Necessity Statement*: less than 2 midnight stay anticipated Coding Level of Care Code Acute Code for Chg Fwd Diagnoses Noncompliance Z91.199 End-stage renal disease on hemodialysis N18.6; Z99.2
[2023-05-30 19:05] VITALS: BP 157/86; PULSE 70; RESP 18; TEMP 36.7
--- NOTE | 2023-05-30 19:07 | PC.HD ---
Heparin 1000 units loading dose administered at 1625 Heparin 500 units maintenance dose administered at 1730 Heparin 500 units maintenance dose administered at 1830 Per sales agent insurance's orders--unable to chart heparin administration on MAR at the current time.
[2023-05-30] MEDS: epoetin alfa 1000 Unit/0.05 mL (ESRD) 20000 UNIT IVP (19:19)
[2023-05-30 19:33] VITALS: BMI 23.5
--- NOTE | 2023-05-30 19:37 | PC.NURSE ---
pt still in dialysis at this time.
[2023-05-30 19:44] VITALS: BP 157/89; PULSE 77; RESP 16; TEMP 37
[2023-05-30 20:00] VITALS: BP 168/92; PULSE 79; RESP 16; TEMP 36.5; O2SAT 94
[2023-05-30] MEDS: hyDRALAzine 50 mg Tablet 100 MG PO (20:20)
[2023-05-30] MEDS: carvedilol 25 mg Tablet 37.5 MG PO (20:21)
[2023-05-30] MEDS: atorvastatin 40 mg Tablet PO (20:22)
[2023-05-30 23:45] VITALS: PULSE 75
[2023-05-31] VITALS (7 sets, daily range): BP systolic 116–156; BP diastolic 60–88; PULSE 74–89; RESP 16–18; TEMP 36.3–37.9; O2SAT 93–95; BMI 26.9
[2023-05-31] MEDS: hyDRALAzine 50 mg Tablet 100 MG PO (03:35)
[2023-05-31] MEDS: HYDROcodone-acetaminophen 5-325 mg Tablet 1 TAB PO (03:35)
[2023-05-31 05:27] LABS: Basophils # 0.1 10^3/uL (0.0-0.1); Basophils % 1.3 %; Eosinophils # 0.3 10^3/uL (0.0-0.8); Eosinophils % 4.8 %; Hematocrit 30.5 % (37-53); Lymphocytes # 0.3 10^3/uL (0.8-4.8); Lymphocytes % 5.6 %; Mean Corpuscular HGB Conc 32.1 g/dL (30-55); Mean Corpuscular Hemoglobin 27.4 pg (27-33); Mean Corpuscular Volume 85.2 fl (82-101); Monocytes # 0.3 10^3/uL (0.2-0.9); Monocytes % 4.8 %; Neutrophils # 4.63 10^3/uL (1.8-7.7); Neutrophils % 83.1 %; Nucleated Red Blood Cells % 0 %; Platelet Count 147 10^3/cmm (157-399); Red Blood Count 3.58 10^6/uL (3.85-5.65); Red Cell Distribution Width 20.7 % (12.1-15.1); White Blood Count 5.57 10^3/uL (3.29-11.43)
[2023-05-31 05:49] LABS: Alanine Aminotransferase < 5 U/L (0-41); Albumin Level 3.4 g/dL (3.5-5.2); Alkaline Phosphatase 103 U/L (40-130); Anion Gap 16.4 (5-19); Aspartate Amino Transferase 13 U/L (0-40); Blood Urea Nitrogen 36 mg/dL (6-20); Calcium 9.9 mg/dL (8.5-10.5); Carbon Dioxide 30 mmol/L (22-29); Chloride 92 mmol/L (98-107); Globulin 3.6 g/dL (1.3-4.6); Glomerular Filtration Rate 6.5 mL/min (90-130); Glucose 90 mg/dL (65-115); Osmolality Calculated 284 mOsm/kg (285-295); Potassium 5.4 mmol/L (3.5-5.1); Sodium 133 mmol/L (136-145); Total Bilirubin 0.5 mg/dL (0.15-1.2)
--- NOTE | 2023-05-31 07:53 | P.PN_ITS ---
Subjective 2 Subjective: s/p HD yesterday Medications: Reviewed: Yes Vitals/I&O/Wt Last Vital Signs Temp 97.4 F L 05/31/23 07:45 Pulse 76 05/31/23 07:45 Resp 16 05/31/23 07:45 BP 146/75 05/31/23 07:45 Pulse Ox 94 05/31/23 07:45 O2 Del Method Nasal Cannula 05/31/23 04:00 O2 Flow Rate 4 05/30/23 21:14 05/30/23 05/31/23 05/31/23 22:59 06:59 14:59 Intake Total 300 / 300 Output Total 3300 / 3300 Balance -3000 / -3000 Weight last 48 hrs Weight 92.805 kg Weight 80.9 kg Weight 80.9 kg Weight 83.915 kg Physical Exam 2 Narrative: awake , alert no distress + edema Data 05/31/23 05:01 05/31/23 05:01 A&P Assessment and plan (1) End-stage renal disease on hemodialysis: Plan 1. End-stage renal disease, missed hemodialysis now presented with hyperkalemia. s/p HD last nihght K still elevated , will run short course HD today 2. History of hypertension- blood pressure 3. Anemia: TREY with HD 4. History of liver cirrhosis 5. Nausea vomiting and loose stools, management per primary team Patient evaluated using audiovisual cart. Time spent 40 minutes Attestations 2 Medical Necessity Statement*: per howie Coding Level of Care Code Acute Code for Chg Fwd Diagnoses End-stage renal disease on hemodialysis N18.6; Z99.2
[2023-05-31] MEDS: acetaminophen 325 mg Tablet 650 MG PO (11:41)
--- NOTE | 2023-05-31 12:53 | PC.HD ---
Heparin 1000 units loading dose administered via venous needle at 10:00 per blade grinder's orders. Heparin 500 units maintenance dose was administered via HD circuit at 11:00 per blade grinder's orders.
--- NOTE | 2023-05-31 15:08 | P.DS_ITS ---
Discharge Providers Date of Admission: 05/30/23 19:00 Date of Discharge: May 31, 2023 Attending Provider at Admission: Tiarra Villegas MD Attending Provider at Discharge: Tiarra Villegas MD Primary Care Provider: Mal Junior Diagnoses at Discharge Discharge Diagnosis (1) End-stage renal disease on hemodialysis: Status: Acute Reason for Visit Reason for Visit: vomiting Hospital Course Hospital Course Mal Gibbs is a 42 year old male with known end-stage renal disease, history of recurrent admissions here, chronic respiratory failure, liver cirrhosis with recurrent paracentesis, hypertension hyperlipidemia presented to the emergency room after having missed dialysis. Patient states that he had been experiencing some vomiting and dialysis center asked him to go to the hospital instead of coming to the HD center. He presented here complaining of abdominal pain nausea vomiting. Creatinine was higher than recent baseline at 11. He had hyperkalemia. He has longstanding abdominal hernia which did not show any signs of incarceration or gangrene. AXR without abnormalities. He was hypervolemic and very lethargic initially upon admission. He underwent hemodialysis on May 30, 2019 4 in the evening. Mental status remained lethargic after dialysis and he underwent an additional round on the morning of May 31, 2023. After this most recent dialysis patient is alert awake oriented x 3. He is currently appearing to be euvolemic. He is discharged in a hemodynamically stable, improved condition. He is chronically ill and high risk of readmission. Physical Exam Narrative: General: No acute distress, AO x3 HEENT: PERRLA, pupils bilaterally equal and reactive, pallors + Chest: Normal vesicular breath sounds, no added sounds, equal good air entry bilaterally CVS: S1-S2 regular, no murmurs, no tachycardia, no gallops, no rubs Abdomen: Soft, nontender, no organomegaly, bowel sounds present Neuro: No focal deficits, no facial deformity, AO x3, power 5/5 in all limbs Discharge Data Studies Completed and Pending Completed Studies During Hospitalization Category Date Time Status XR abdomen 1V* [id number] Routine Exams 05/30/23 17:57 Completed Pending at discharge Category Date Time Status Urinalysis Stat Lab 05/30/23 13:06 Uncollected Radiology Impressions Abdomen X-Ray 05/30/23 17:57 IMPRESSION: 1. No evidence for bowel obstruction or perforation. 2. Medial displacement of bowel loops, likely from ascites. Laboratory Results WBC 5.57 10^3/uL (3.29-11.43) 05/31/23 05:01 RBC 3.58 10^6/uL (3.85-5.65) L 05/31/23 05:01 Hgb 9.80 g/dL (11.27-16.99) L 05/31/23 05:01 Hct 30.5 % (37-53) L 05/31/23 05:01 MCV 85.2 fl (82-101) 05/31/23 05:01 MCH 27.4 pg (27-33) 05/31/23 05:01 MCHC 32.1 g/dL (30-55) 05/31/23 05:01 RDW 20.7 % (12.1-15.1) H 05/31/23 05:01 Plt Count 147 10^3/cmm (157-399) L 05/31/23 05:01 MPV 10.0 fL (7.4-10.4) 05/31/23 05:01 Neut % (Auto) 83.1 % 05/31/23 05:01 Lymph % (Auto) 5.6 % 05/31/23 05:01 [place] % (Auto) 4.8 % 05/31/23 05:01 Eos % (Auto) 4.8 % 05/31/23 05:01 Baso % (Auto) 1.3 % 05/31/23 05:01 Neut # (Auto) 4.63 10^3/uL (1.8-7.7) 05/31/23 05:01 Lymph # (Auto) 0.3 10^3/uL (0.8-4.8) L 05/31/23 05:01 [place] # (Auto) 0.3 10^3/uL (0.2-0.9) 05/31/23 05:01 Eos # (Auto) 0.3 10^3/uL (0.0-0.8) 05/31/23 05:01 Baso # (Auto) 0.1 10^3/uL (0.0-0.1) 05/31/23 05:01 Nucleated RBC % (auto) 0 % 05/31/23 05:01 Nucleated RBCs # 0.0 /100WBC 05/31/23 05:01 Specimen Type Venous 05/30/23 13:08 Sample Site Na 05/30/23 13:08 Alexei Test N/a 05/30/23 13:08 VBG pH 7.38 (7.32-7.42) 05/30/23 13:08 VBG pCO2 48.0 mmHg (41-51) 05/30/23 13:08 VBG pO2 62.8 mmHg (25-40) H 05/30/23 13:08 VBG HCO3 28.2 mmol/L (24-28) H 05/30/23 13:08 VBG Base Excess 2.5 mmol/L (-3.0-3.0) 05/30/23 13:08 VBG Hematocrit 32.8 % (42-52) L 05/30/23 13:08 O2 Delivery Device None 05/30/23 13:08 Sql Server Consultant ID Cak 05/30/23 13:08 Sodium 133 mmol/L (136-145) L 05/31/23 05:01 Potassium 5.4 mmol/L (3.5-5.1) H 05/31/23 05:01 Chloride 92 mmol/L (98-107) L 05/31/23 05:01 Carbon Dioxide 30 mmol/L (22-29) H 05/31/23 05:01 Anion Gap 16.4 (5-19) 05/31/23 05:01 BUN 36 mg/dL (6-20) H 05/31/23 05:01 Creatinine 9.1 mg/dL (0.7-1.2) H* 05/31/23 05:01 GFR Calculation 6.5 mL/min (90-130) L 05/31/23 05:01 Glucose 90 mg/dL (65-115) 05/31/23 05:01 Calculated Osmolality 284 mOsm/kg (285-295) L 05/31/23 05:01 Lactic Acid 0.4 mmol/L (0.5-2.2) L 05/30/23 13:17 Calcium 9.9 mg/dL (8.5-10.5) 05/31/23 05:01 Magnesium 2.0 mg/dL (1.7-2.3) 05/31/23 05:01 Total Bilirubin 0.5 mg/dL (0.15-1.2) 05/31/23 05:01 AST 13 U/L (0-40) 05/31/23 05:01 ALT < 5 U/L (0-41) 05/31/23 05:01 Alkaline Phosphatase 103 U/L (40-130) 05/31/23 05:01 Total Protein 7.0 g/dL (6.6-8.7) 05/31/23 05:01 Albumin 3.4 g/dL (3.5-5.2) L 05/31/23 05:01 Globulin 3.6 g/dL (1.3-4.6) 05/31/23 05:01 Lipase 12 U/L (13-60) L 05/30/23 13:17 Procalcitonin 0.54 ng/mL (0-0.5) H 05/30/23 13:17 Influenza Type A Ag negative (Negative) 05/30/23 13:30 Influenza Type B Ag negative (Negative) 05/30/23 13:30 SARS-CoV-2 Ag (Rapid) negative (Negative) 05/30/23 13:30 Vitals Last Vital Signs Temp 98.6 F 05/31/23 12:52 Pulse 78 05/31/23 12:52 Resp 16 05/31/23 12:52 BP 151/88 05/31/23 12:52 Pulse Ox 95 05/31/23 09:08 O2 Del Method Nasal Cannula 05/31/23 09:08 O2 Flow Rate 4 05/31/23 09:08 Discharge Plan Discharge Patient Disposition: Home Condition: Stable Prescriptions: Continued (DME) DME - BIPAP See Rx Instructions .Route .MEDSUPPLY Qty: 1 0RF Rx Instructions: Inspiratory Pressure: 16mmHg Expiratory Pressure: 8 mmHg Will need oxygen bled in to the machine to maintain sats >/= 90%. (DME) DME - Oxygen See Rx Instructions .Route .MEDSUPPLY Qty: 1 0RF Rx Instructions: Supplemental Oxygen bled into BIPAP at 2-3L to maintain oxygen sats at >/= 90%. Auryxia 210 mg iron Tablet See Rx Instructions .ROUTE .COMPLEX Rx Instructions: 420 mg (2 tabs) orally three times a day and 210mg (1 tab) with snacks aspirin 81 mg tablet,delayed release (DR/EC) 81 mg PO DAILY pantoprazole 40 mg tablet,delayed release (DR/EC) 40 mg PO DAILY isosorbide mononitrate 120 mg tablet extended release 24 hr 240 mg PO DAILY RenaPlex-D 800 mcg-12.5 mg -2,000 unit tablet 1 tab PO DAILY carvedilol 25 mg tablet 37.5 mg PO Q12H clonidine 0.2 mg/24 hr patch weekly 0.2 mg topical Q7D atorvastatin 40 mg tablet 40 mg PO BEDTIME amlodipine 10 mg tablet 10 mg PO DAILY hydralazine 100 mg tablet 100 mg PO Q8H prasugrel 10 mg tablet 10 mg PO DAILY cyanocobalamin (vitamin B-12) 1,000 mcg capsule 1,000 mcg PO DAILY Qty: 30 0RF ondansetron 4 mg tablet,disintegrating 4 mg translingual Q8H PRN (Reason: Nausea And Vomiting) minoxidil 2.5 mg tablet 10 mg PO TID hydrocodone-acetaminophen 5-325 mg Tablet 1 tab PO Q4H PRN (Reason: Moderate Pain) Qty: 10 0RF tramadol 50 mg tablet 50 mg PO Q8H PRN (Reason: pain) Qty: 14 0RF ciprofloxacin HCl 500 mg tablet 500 mg PO DAILY Discharge Orders: Discharge Order (Routine); Ordered 05/31/23 Ordered By: Tiarra Villegas Referrals: Mal Junior [Primary Care Provider] - (We have notified your physician's clinic of the need for a follow-up appointment to be scheduled. If you have not heard from them within the next 2 business days, please call them directly. ) Discharge Diet: Usual diet Discharge Activity: Resume usual activity Patient Instructions: Opioid Safety Discharge Attestations Time Spent in Discharge Care*: greater than 30 min Status at Discharge: Cognitive status at discharge: cognitively intact , Behavioral status at discharge: cooperative , Quality Metrics Clinical Quality Measures [ No reported AMI, CVA or VTE this stay] Coding Level of Care Code Acute Code for Chg Fwd Diagnoses End-stage renal disease on hemodialysis N18.6; Z99.2
[2023-05-31] MEDS: heparin, porcine 1,000 unit/mL INJ 10 mL 1000 UNIT IV (15:26)
== END 2023-05-31 15:58 | disposition home or self-care (01) ==
LOC: ER 13:18 → MEDSURG 15:56 → ER 06-01 08:18 → MEDSURG 06-01 08:18
PROVIDERS: Admitting Provider Student in an Organized Health Care Education/Training Program; Emergency Provider Physician Assistant; PCP Family Medicine; Visit Provider Student in an Organized Health Care Education/Training Program
DX: I13.0 Hypertensive heart and chronic kidney disease with heart failure and stage 1 through stage 4 chronic kidney disease, or unspecified chronic kidney disease (principal); N18.6 End stage renal disease; I50.9 Heart failure, unspecified; Z99.2 Dependence on renal dialysis; J96.10 Chronic respiratory failure, unspecified whether with hypoxia or hypercapnia; D63.1 Anemia in chronic kidney disease; F17.210 Nicotine dependence, cigarettes, uncomplicated; Z91.199 Patient's noncompliance with other medical treatment and regimen due to unspecified reason; R11.2 Nausea with vomiting, unspecified; R19.4 Change in bowel habit
CPT/HCPCS: 36415; 74018; 80053; 82803; 83605; 83690; 83735; 84145; 85025; 87426; 87804; 90935; 96374; 96375; 99285; G0378; J1644; J2270; J2765; Q4081

== ENCOUNTER → 2023-06-03 12:58 | Day surgery (SDC) | payer MEDICARE, MEDICAID, SELFPAY ==
[2023-06-03 13:15] VITALS: BP 149/74; PULSE 68; RESP 18; TEMP 36.8; O2SAT 91
[2023-06-03 13:21] VITALS: BMI 26.4
--- NOTE | 2023-06-03 13:26 | US_ITS ---
WS: [id number] ULTRASOUND-GUIDED PARACENTESIS CLINICAL INFORMATION: cirrhosis of liver without ascites COMPARISON: None. Procedure Informed consent: The risks, benefits, and alternatives of the procedure were discussed with the mariah ent. Verbal and written consent was obtained. Timeout: A timeout was performed to confirm the correct patient, procedure, and site. Preparation: A suitable skin site was identified. The patient was prepped and draped in usual sterile fashion. Lidocaine 1% was used for local anesthesia. Catheter: 4 Romansh One-step [employer] catheter. Side: LEFT lower quadrant. Fluid Volume: 6800 ml Color: Clear yellow DISPOSITION: Discarded safely. Complications: None. Patient disposition: Discharged from the department in stable condition. IMPRESSION: Uncomplicated ultrasound-guided paracentesis. Removal of 6800 cc
[2023-06-03 14:43] LABS: Albumin Body Fluid 2.2 g/dL; Total Protein Body Fluid 3.9 g/dL
[2023-06-03 15:35] LABS: Cyto Order Verification Order Verified
== END ==
PROVIDERS: Radiology Neuroradiology; PCP Family Medicine; Visit Provider Nurse Practitioner Family
PROC: (CPT 49082; principal; 2023-06-03 13:30)
DX: K74.60 Unspecified cirrhosis of liver (principal); R18.8 Other ascites
CPT/HCPCS: 49083; 82042; 84157; 87070; 87075; 87205; 88112; 88305

== ENCOUNTER 2023-06-26 22:46 | Emergency (ER) | payer MEDICARE, MEDICAID, SELFPAY ==
[2023-06-26 22:49] VITALS: BP 135/77; PULSE 79; RESP 15; TEMP 36.8; O2SAT 98
--- NOTE | 2023-06-26 23:46 | CTR_ITS ---
PROCEDURE INFORMATION: Exam: CT Abdomen And Pelvis Without Contrast Exam date and time: 06/26/2023 11:57 PM Age: 42 years old Clinical indication: Abdominal pain; Generalized; Prior surgery; Surgery date: 6+ months; Surgery type: Coronary stents; Patient HX: Diffuse abd and groin pain. Chronic history of RT inguinal hernia with hydrocele. ; Additional info: Abdominal pain, scrotal swelling, known inguinal hernia TECHNIQUE: Imaging protocol: Computed tomography of the abdomen and pelvis without contrast. Radiation optimization: All CT scans at this facility use at least one of these dose optimization techniques: automated exposure control; mA and/or kV adjustment per patient size (includes targeted exams where dose is matched to clinical indication); or iterative reconstruction. COMPARISON: CT abdomen pelvis con [id number] 05/24/2023 2:50 AM RADIATION DOSE METRICS: Total DLP (mGy-cm): 830.96 FINDINGS: Coronary arteries: Severe calcified coronary artery disease. Liver: Nodular liver consistent with cirrhosis. Gallbladder and bile ducts: Normal. No calcified stones. No ductal dilation. Pancreas: Normal. No ductal dilation. Spleen: One or more accessory splenules. 14.0 cm mild splenomegaly. Adrenal glands: Normal. No mass. Kidneys and ureters: Normal. No hydronephrosis. Stomach and bowel: Unremarkable. No obstruction. No mucosal thickening. Appendix: No evidence of appendicitis. Intraperitoneal space: Grossly stable moderate to severe four-quadrant ascites. Vasculature: Unremarkable. No abdominal aortic aneurysm. Lymph nodes: Unremarkable. No enlarged lymph nodes. Urinary bladder: Unremarkable as visualized. Reproductive: Severe soft tissue swelling of the entire scrotum consistent with cellulitis versus hydrostatic edema from moderate to large ascites filling the peritoneal cavity and the right inguinal hernia. Bones/joints: Bilateral L5 pars defects. Soft tissues: Stable protruding umbilical hernia containing fat and ascites. Enlarged right inguinal hernia containing 16.5 x 9.4 x 9.3 cm collection of ascites within the hernia sac. CT/CT abdomen pelvis con [id number] IMPRESSION: 1. Grossly stable moderate to severe four-quadrant ascites. 2. Stable protruding umbilical hernia containing fat and ascites. 3. Enlarged right inguinal hernia containing 16.5 x 9.4 x 9.3 cm collection of ascites within the hernia sac. 4. Severe soft tissue swelling of the entire scrotum consistent with cellulitis versus hydrostatic edema from moderate to large ascites filling the peritoneal cavity and the right inguinal hernia. 5. Nodular liver consistent with cirrhosis. 6. 14.0 cm mild splenomegaly.
[2023-06-26] MEDS: HYDROcodone-acetaminophen 5-325 mg Tablet 1 TAB PO (23:51)
--- NOTE | 2023-06-26 23:53 | W.ED.ABDPA2 ---
HPI - Abdominal Pain General: Chief Complaint: Abdominal Pain Stated Complaint: ABD Pain\Groin Pain Time Seen by Provider: 06/26/23 23:02 History of Present Illness: Patient is a 42-year-old male with a past medical history significant for chronic kidney disease requiring dialysis, cirrhosis, chronic right inguinal hernia, congestive heart failure, COPD, and abdominal ascites who presents to the emergency department for evaluation of abdominal pain. Patient reports that this new episode started yesterday and has continued to progress since onset. Patient has been evaluated multiple times in the past and received both ultrasounds and CAT scans due to similar symptoms. Patient currently rates his pain as a 10 out of 10 in severity that he describes as a sharp/stabbing sensation. Pain is primarily periumbilical and located to the right inguinal area. Patient states that he has had 2 episodes of nausea and vomiting. Patient denies hematemesis. Patient states that he did have 1 episode of diarrhea. Patient denies fever, chills, chest pain, shortness of breath, palpitations, lightheadedness, dizziness, hematemesis, melena, hematochezia, constipation, or any other associated symptoms. No other complaints at this time. Associated Symptoms: Reports diarrhea, nausea and vomiting; Denies chills, constipation, dysuria and fever(s) Review of Systems General: Reports: 10 or more systems reviewed and unremarkable except in HPI and below Const: Denies: fever(s) or chills Eyes: Denies: change in vision, blurry vision, eye discharge or eye redness ENMT: Denies: throat pain, ear or mastoid pain, ear discharge, nasal discharge or nasal congestion Card: Denies: chest pain or palpitations Resp: Denies: dyspnea, productive cough, non-productive cough, wheezing, stridor or pain on inspiration GI: Reports: abdominal pain, nausea, vomiting and diarrhea; Denies: constipation : Reports: testicular pain; Denies: flank pain, difficulty urinating or dysuria Musc: Denies: neck pain Skin/Breast: Denies: rash Neuro: Denies: headache(s), numbness in extremities or weakness in extremities Psych: Denies: anxiety PFSH ED PFSH: Medical History Acute and chronic respiratory failure with hypoxia Patient under care of multiple providers Hypertensive urgency History of cardiovascular stress test 07/2022 at [facility] perfusion imaging probably normal, no reversible defects, small fixed defect in apical anterior wall, EF 54%, nonischemic response to stress by EKG criteria Depression Epididymitis 06/2022 Pulmonary hypertension Uses bilevel positive airway pressure (BPAP) ventilation at home Umbilical hernia History of home oxygen therapy History of coronary angiogram 11/2021 - patent stent Inguinal hernia Anxiety Chronic respiratory failure on home oxygen and bipap Low back pain Nicotine dependence, cigarettes, with other nicotine-induced disorders Generalized anxiety disorder with panic attacks ESRD on dialysis Atherosclerosis of coronary artery Stent and balloon angioplasty to proximal 1 OM branch Chronic abdominal pain COVID 05/25 Hypertensive emergency recurrent episodes Urethral stricture Abdominal ascites history of intermittent paracentesis, transudative fluid; prior work up has included negative biopsy, ceruloplasmin level normal, low iron, high ferritin, normal TIBC, negative HIV, hepatitis panel negative, JESÚS/SCL 70/double-stranded DNA antibodies negative, Alpha-fetoprotein level unremarkable, nonalcoholic by history, has hepatomegaly and splenomegaly Pulmonary embolism 09/21 CTA inconclusive for very tiny peripheral LEFT lower lobe pulmonary artery sub segmental emboli versus poor opacification. Anemia chronic kidney disease Congestive heart failure preserved ejection fraction COPD (chronic obstructive pulmonary disease) Arteriovenous fistula for hemodialysis in place, secondary Degenerative disc disease, lumbar Hypertension uncontrolled Surgical History Stented coronary artery H/O hand surgery Amputation right 2&3 fingers 2017 History of adenoidectomy Family History Other Hypertension Social History Smoking and tobacco/nicotine status: current every day tobacco/nicotine user cigarettes Packs smoked per day: 1.5 Years cigarettes smoked: 21 [ Other cigarette details: started age 20, currently 0.5ppd ] Alcohol intake: never Substance/Drug Use: never Number of children: 3 Current occupational status: disabled Do you think of yourself as: Straight/Heterosexual Physical Exam Const: COMMON NORMALS: no acute distress and patient oriented x3 HENMT: COMMON NORMALS: normocephalic, atraumatic, moist oral mucous membranes and oropharynx normal HEAD & SCALP: normocephalic and atraumatic Eye: COMMON NORMALS: Equal, round and reactive pupils present, EOMs intact bilaterally and conjunctivae normal CONJUNCTIVA: Yes conjunctivae normal PUPIL: Yes Equal, round and reactive pupils present Neck/C-Spine: COMMON NORMALS: full ROM, no lymphadenopathy and no JVD Resp: COMMON NORMALS: normal respiratory effort, No retractions, No use of accessory muscles and clear to auscultation bilaterally AUSCULTATION: clear to auscultation bilaterally Cardio: COMMON NORMALS: no JVD, regular rate, regular rhythm, S1 normal heart sound present, S2 normal heart sound present, No gallops present (Cardio), No clicks present (Cardio), No murmurs present (Cardio), No rub (Cardio) and Peripheral pulses 2+ throughout RATE: regular rate RHYTHM: regular rhythm HEART SOUNDS: S1 normal heart sound present and S2 normal heart sound present PERIPHERAL PULSES: Peripheral pulses 2+ throughout GI: OTHER: Abdominal ascites noted. The umbilicus is bulging outward. Is difficult to say whether or not this is from a umbilical hernia or his ascites. Periumbilical/suprapubic tenderness noted to palpation. A very large right inguinal hernia is noted which extends into the patient's scrotum. The area is tender to palpation. Hypoactive bowel sounds heard in all 4 quadrants. Positive fluid wave test Extremity: NARRATIVE EXTREMITY EXAM: Moving bilateral upper and lower extremities without weakness or deficit. Fistula is noted to the right forearm for dialysis. 2+ pitting edema in the bilateral lower extremities Neuro: COMMON NORMALS: patient oriented x3, CN's II-XII intact bilaterally, moves all extremities, no focal motor deficits and no sensory deficits noted Course Vital Signs: Vital signs: Vital Signs Temperature 98.2 F 06/26/23 22:49 Pulse Rate 79 06/26/23 22:49 Respiratory Rate 15 06/26/23 22:49 Blood Pressure 135/77 06/26/23 22:49 Pulse Oximetry 98 06/26/23 22:49 Oxygen Delivery Me thod Room Air 06/26/23 22:49 MDM - Abdominal Pain Medical Decision Making Patient is a 42-year-old male with a past medical history significant for chronic kidney disease requiring dialysis, cirrhosis, chronic right inguinal hernia, congestive heart failure, COPD, and abdominal ascites who presents to the emergency department for evaluation of abdominal pain. On physical examination patient is nontoxic and in no acute distress. Vital signs remain stable throughout the ED course. Ascites noted on examination. CBC showed no evidence of leukocytosis. Hemoglobin was 9.10. CBC on 05/31/2023 was 9.8. This is likely his baseline. CMP showed a creatinine of 5. Patient has a known history of chronic kidney disease and undergoes dialysis every other day. Patient is scheduled to have dialysis tomorrow. Patient reports that he is also scheduled to have a paracentesis next week. Lactic acid and lipase unremarkable. CT of the abdomen pelvis without contrast showed Grossly stable moderate to severe four-quadrant ascites. Stable protruding umbilical hernia containing fat and ascites. Enlarged right inguinal hernia containing 16.5 x 9.4 x 9.3 cm collection of ascites within the hernia sac. Severe soft tissue swelling of the entire scrotum consistent with cellulitis versus hydrostatic edema from moderate to large ascites filling the peritoneal cavity and the right inguinal hernia. Nodular liver consistent with cirrhosis. 14.0 cm mild splenomegaly. The skin around the scrotum is not erythematous or warm to palpation. There is no evidence of cellulitis. Soft tissue swelling of the scrotum is likely due to the ascites. Patient has been evaluated in the emergency department multiple times with similar complaints. All imaging and laboratory work has remained stable. No evidence of his incarceration, strangulation, or gangrene of the hernias are appreciated. Based off history and physical examination I do not believe the patient symptoms are emergent and warrant further emergent evaluation at this time. Patient has a paracentesis scheduled for next week and dialysis schedule tomorrow. Patient was instructed to ensure that he keeps both of these appointments. Patient was given morphine in the emergency department for the pain and patient stated improvement of symptoms after medication administration. Patient was given strict return precautions and directed to follow-up with his primary care provider for further management/evaluation. Patient stated understanding of all discharge instructions and was agreeable to plan of care. I discussed the patient's history, exam, and all findings with Dr. Love in the emergency department who agreed my assessment and plan. He did not feel the patient required admission or further evaluation at this time. Differential diagnosis includes but is not limited to bowel obstruction, incarceration, strangulation, appendicitis, pancreatitis, ascites, spontaneous bacterial peritonitis, drug-seeking behavior Lab Data 06/27/23 00:00 06/27/23 00:00 Labs/Radiology: Radiology Impressions Abdomen/Pelvis CT 06/26/23 23:46 IMPRESSION: 1. Grossly stable moderate to severe four-quadrant ascites. 2. Stable protruding umbilical hernia containing fat and ascites. 3. Enlarged right inguinal hernia containing 16.5 x 9.4 x 9.3 cm collection of ascites within the hernia sac. 4. Severe soft tissue swelling of the entire scrotum consistent with cellulitis versus hydrostatic edema from moderate to large ascites filling the peritoneal cavity and the right inguinal hernia. 5. Nodular liver consistent with cirrhosis. 6. 14.0 cm mild splenomegaly. Laboratory Results WBC 3.51 10^3/uL (3.29-11.43) 06/27/23 00:00 RBC 3.37 10^6/uL (3.85-5.65) L 06/27/23 00:00 Hgb 9.10 g/dL (11.27-16.99) L 06/27/23 00:00 Hct 28.1 % (37-53) L 06/27/23 00:00 MCV 83.4 fl (82-101) 06/27/23 00:00 MCH 27.0 pg (27-33) 06/27/23 00:00 MCHC 32.4 g/dL (30-55) 06/27/23 00:00 RDW 19.3 % (12.1-15.1) H 06/27/23 00:00 Plt Count 197 10^3/cmm (157-399) 06/27/23 00:00 MPV 10.0 fL (7.4-10.4) 06/27/23 00:00 Neut % (Auto) 65.0 % 06/27/23 00:00 Lymph % (Auto) 12.8 % 06/27/23 00:00 [place] % (Auto) 13.4 % 06/27/23 00:00 Eos % (Auto) 6.8 % 06/27/23 00:00 Baso % (Auto) 1.7 % 06/27/23 00:00 Neut # (Auto) 2.28 10^3/uL (1.8-7.7) 06/27/23 00:00 Lymph # (Auto) 0.5 10^3/uL (0.8-4.8) L 06/27/23 00:00 [place] # (Auto) 0.5 10^3/uL (0.2-0.9) 06/27/23 00:00 Eos # (Auto) 0.2 10^3/uL (0.0-0.8) 06/27/23 00:00 Baso # (Auto) 0.1 10^3/uL (0.0-0.1) 06/27/23 00:00 Nucleated RBC % (auto) 0 % 06/27/23 00:00 Nucleated RBCs # 0.0 /100WBC 06/27/23 00:00 Sodium 131 mmol/L (136-145) L 06/27/23 00:00 Potassium 3.6 mmol/L (3.5-5.1) 06/27/23 00:00 Chloride 87 mmol/L (98-107) L 06/27/23 00:00 Carbon Dioxide 33 mmol/L (22-29) H 06/27/23 00:00 Anion Gap 14.6 (5-19) 06/27/23 00:00 BUN 20 mg/dL (6-20) 06/27/23 00:00 Creatinine 5.4 mg/dL (0.7-1.2) H 06/27/23 00:00 GFR Calculation 11.8 mL/min (90-130) L 06/27/23 00:00 Glucose 89 mg/dL (65-115) 06/27/23 00:00 Calculated Osmolality 274 mOsm/kg (285-295) L 06/27/23 00:00 Lactic Acid 0.7 mmol/L (0.5-2.2) 06/27/23 00:00 Calcium 9.8 mg/dL (8.5-10.5) 06/27/23 00:00 Total Bilirubin 0.6 mg/dL (0.15-1.2) 06/27/23 00:00 AST 11 U/L (0-40) 06/27/23 00:00 ALT 6 U/L (0-41) 06/27/23 00:00 Alkaline Phosphatase 128 U/L (40-130) 06/27/23 00:00 Total Protein 7.4 g/dL (6.6-8.7) 06/27/23 00:00 Albumin 3.5 g/dL (3.5-5.2) 06/27/23 00:00 Globulin 3.9 g/dL (1.3-4.6) 06/27/23 00:00 Lipase 14 U/L (13-60) 06/27/23 00:00 All radiology interpretation(s) finalized by discharge Discharge Plan Discharge Patient Disposition: Home Clinical Impression: Abdominal pain, Inguinal hernia Condition: Stable Prescriptions: No Action (DME) DME - BIPAP See Rx Instructions .Route .MEDSUPPLY Qty: 1 0RF Rx Instructions: Inspiratory Pressure: 16mmHg Expiratory Pressure: 8 mmHg Will need oxygen bled in to the machine to maintain sats >/= 90%. (DME) DME - Oxygen See Rx Instructions .Route .MEDSUPPLY Qty: 1 0RF Rx Instructions: Supplemental Oxygen bled into BIPAP at 2-3L to maintain oxygen sats at >/= 90%. Auryxia 210 mg iron Tablet See Rx Instructions .ROUTE .COMPLEX Rx Instructions: 420 mg (2 tabs) orally three times a day and 210mg (1 tab) with snacks aspirin 81 mg tablet,delayed release (DR/EC) 81 mg PO DAILY pantoprazole 40 mg tablet,delayed release (DR/EC) 40 mg PO DAILY isosorbide mononitrate 120 mg tablet extended release 24 hr 240 mg PO DAILY RenaPlex-D 800 mcg-12.5 mg -2,000 unit tablet 1 tab PO DAILY carvedilol 25 mg tablet 37.5 mg PO Q12H clonidine 0.2 mg/24 hr patch weekly 0.2 mg topical Q7D atorvastatin 40 mg tablet 40 mg PO BEDTIME amlodipine 10 mg tablet 10 mg PO DAILY hydralazine 100 mg tablet 100 mg PO Q8H prasugrel 10 mg tablet 10 mg PO DAILY cyanocobalamin (vitamin B-12) 1,000 mcg capsule 1,000 mcg PO DAILY Qty: 30 0RF ondansetron 4 mg tablet,disintegrating 4 mg translingual Q8H PRN (Reason: Nausea And Vomiting) minoxidil 2.5 mg tablet 10 mg PO TID hydrocodone-acetaminophen 5-325 mg Tablet 1 tab PO Q4H PRN (Reason: Moderate Pain) Qty: 10 0RF tramadol 50 mg tablet 50 mg PO Q8H PRN (Reason: pain) Qty: 14 0RF ciprofloxacin HCl 500 mg tablet 500 mg PO DAILY Discharge Orders: Discharge ED (Routine); Ordered 06/27/23 Ordered By: Rayray Stephens Referrals: Mal Junior [Primary Care Provider] - Patient Instructions: Abdominal Pain (ED), Opioid Safety, Pain Management Activity Restrictions/Additional Instructions: Increase oral hydration. See handout over generalize instructions. Take all home medications as prescribed. Ensure that you go to dialysis tomorrow. Ensure that you keep the paracentesis next week. Call your primary care provider tomorrow with an update of your symptoms and to schedule appointment for further management/evaluation. Return to the emergency department for any rapid or worsening symptoms to include but not limited to worsening abdominal pain, fever, worsening vomiting, lightheadedness, dizziness, chest pain, shortness of breath, or as needed. Coding Level of Care Code ED Bilingual Social Worker for Cristi Diane
[2023-06-27 00:10] LABS: Basophils # 0.1 10^3/uL (0.0-0.1); Basophils % 1.7 %; Eosinophils # 0.2 10^3/uL (0.0-0.8); Eosinophils % 6.8 %; Hematocrit 28.1 % (37-53); Lymphocytes # 0.5 10^3/uL (0.8-4.8); Lymphocytes % 12.8 %; Mean Corpuscular HGB Conc 32.4 g/dL (30-55); Mean Corpuscular Volume 83.4 fl (82-101); Monocytes # 0.5 10^3/uL (0.2-0.9); Monocytes % 13.4 %; Neutrophils # 2.28 10^3/uL (1.8-7.7); Nucleated Red Blood Cells % 0 %; Platelet Count 197 10^3/cmm (157-399); Red Blood Count 3.37 10^6/uL (3.85-5.65); Red Cell Distribution Width 19.3 % (12.1-15.1); White Blood Count 3.51 10^3/uL (3.29-11.43)
[2023-06-27] MEDS: morphine 4 mg/mL SDV 1 mL IVP (00:27)
[2023-06-27] MEDS: ondansetron 2 mg/ML SDV 2 mL 4 MG IVP (00:28)
[2023-06-27 00:39] LABS: Lactic Sepsis W/Reflex 0.7 mmol/L (0.5-2.2)
[2023-06-27 00:40] LABS: Alanine Aminotransferase 6 U/L (0-41); Albumin Level 3.5 g/dL (3.5-5.2); Alkaline Phosphatase 128 U/L (40-130); Anion Gap 14.6 (5-19); Aspartate Amino Transferase 11 U/L (0-40); Blood Urea Nitrogen 20 mg/dL (6-20); Calcium 9.8 mg/dL (8.5-10.5); Carbon Dioxide 33 mmol/L (22-29); Chloride 87 mmol/L (98-107); Globulin 3.9 g/dL (1.3-4.6); Glomerular Filtration Rate 11.8 mL/min (90-130); Glucose 89 mg/dL (65-115); Lipase 14 U/L (13-60); Osmolality Calculated 274 mOsm/kg (285-295); Potassium 3.6 mmol/L (3.5-5.1); Sodium 131 mmol/L (136-145); Total Bilirubin 0.6 mg/dL (0.15-1.2); Total Protein 7.4 g/dL (6.6-8.7)
[2023-06-27 01:19] VITALS: BP 111/57; PULSE 80; RESP 18; O2SAT 96
== END 2023-06-27 01:21 | disposition home or self-care (01) ==
PROVIDERS: Emergency Provider Physician Assistant; PCP Family Medicine
DX: K40.90 Unilateral inguinal hernia, without obstruction or gangrene, not specified as recurrent (principal); R10.33 Periumbilical pain; I13.2 Hypertensive heart and chronic kidney disease with heart failure and with stage 5 chronic kidney disease, or end stage renal disease; N18.6 End stage renal disease; I50.9 Heart failure, unspecified; Z99.2 Dependence on renal dialysis; J44.9 Chronic obstructive pulmonary disease, unspecified; Z99.81 Dependence on supplemental oxygen; I25.10 Atherosclerotic heart disease of native coronary artery without angina pectoris; F17.210 Nicotine dependence, cigarettes, uncomplicated
CPT/HCPCS: 74176; 80053; 83605; 83690; 85025; 96374; 96375; 99285; J2270; J2405

== ENCOUNTER 2023-07-01 12:31 | Day surgery (SDC) | payer MEDICARE, MEDICAID, SELFPAY ==
[2023-07-01 12:44] VITALS: BP 146/77; PULSE 69; RESP 20; TEMP 36.2; O2SAT 95; BMI 25.0
--- NOTE | 2023-07-01 12:45 | US_ITS ---
WS: [id number] ULTRASOUND-GUIDED PARACENTESIS CLINICAL INFORMATION: cirrhosis of liver COMPARISON: None. Procedure Informed consent: The risks, benefits, and alternatives of the procedure were discussed with the mariah ent. Verbal and written consent was obtained. Timeout: A timeout was performed to confirm the correct patient, procedure, and site. Preparation: A suitable skin site was identified. The patient was prepped and draped in usual sterile fashion. Lidocaine 1% was used for local anesthesia. Catheter: 4 Qatari One-step Yueh catheter. Side: LEFT lower quadrant. Fluid Volume: 4500 ml Color: Clear yellow DISPOSITION: Discarded safely. Complications: None. Patient disposition: Discharged from the department in stable condition. IMPRESSION: Uncomplicated ultrasound-guided paracentesis. Removal of 4500 cc
[2023-07-01 14:37] LABS: Cyto Order Verification Order Verified
[2023-07-01 15:14] LABS: Albumin Body Fluid 2.5 g/dL; Total Protein Body Fluid 4.4 g/dL
== END 2023-07-01 14:35 | disposition home or self-care (01) ==
LOC: GILAB 12:32
PROVIDERS: Nurse Practitioner Family; Radiology Neuroradiology; PCP Family Medicine
PROC: (CPT 49082; principal; 2023-07-01 13:30)
DX: K74.60 Unspecified cirrhosis of liver (principal)
CPT/HCPCS: 49083; 82042; 84157; 87070; 87075; 87205; 88112; 89050

== ENCOUNTER 2023-07-14 22:48 | Emergency (ER) | payer MEDICARE, MEDICAID, SELFPAY ==
[2023-07-14 22:54] VITALS: BP 184/106; PULSE 88; RESP 16; TEMP 36.7; O2SAT 94; BMI 25.0
--- NOTE | 2023-07-14 23:28 | ED_ITS ---
HPI - General Adult 2 General: Chief complaint: General Medical Stated complaint: pain in groin up into back and left jaw Time Seen by Provider: 07/14/23 22:55 History of Present Illness: 42-year-old male presents emergency depa rtment with complaints of right groin pain. He also complains of back pain. He states he has been clenching his jaw because of the pain in his groin and his back is a 10 out of 10. He states he does do dialysis on Thursday and Thursday and missed dialysis today because of a doctor's appointment [facility]. He states he has had a longstanding right inguinal hernia and today was seen by cardiology to receive clearance for surgery. He was advised to wait on his surgery because he is currently taking anticoagulation for his stents. Patient states that his right inguinal hernia has not become any larger than previous but does have significant pain. He denies having any pain medications at home. He denies chest pain at present. Review of Systems 2 General: Reports: 10 or more systems reviewed and unremarkable except in HPI and below GI: Reports: other (Abdominal ascites) : Reports: scrotal swelling (Right inguinal hernia) [facility] ED 2 PFSH: Medical History Acute and chronic respiratory failure with hypoxia Patient under care of multiple providers Hypertensive urgency History of cardiovascular stress test 07/2022 at [facility] perfusion imaging probably normal, no reversible defects, small fixed defect in apical anterior wall, EF 54%, nonischemic response to stress by EKG criteria Depression Epididymitis 06/2022 Pulmonary hypertension Uses bilevel positive airway pressure (BPAP) ventilation at home Umbilical hernia History of home oxygen therapy History of coronary angiogram 11/2021 - patent stent Inguinal hernia Anxiety Chronic respiratory failure on home oxygen and bipap Low back pain Nicotine dependence, cigarettes, with other nicotine-induced disorders Generalized anxiety disorder with panic attacks ESRD on dialysis Atherosclerosis of coronary artery Stent and balloon angioplasty to proximal 1 OM branch Chronic abdominal pain COVID 05/25 Hypertensive emergency recurrent episodes Urethral stricture Abdominal ascites history of intermittent paracentesis, transudative fluid; prior work up has included negative biopsy, ceruloplasmin level normal, low iron, high ferritin, normal TIBC, negative HIV, hepatitis panel negative, JESÚS/SCL 70/double-stranded DNA antibodies negative, Alpha-fetoprotein level unremarkable, nonalcoholic by history, has hepatomegaly and splenomegaly Pulmonary embolism 09/21 CTA inconclusive for very tiny peripheral LEFT lower lobe pulmonary artery sub segmental emboli versus poor opacification. Anemia chronic kidney disease Congestive heart failure preserved ejection fraction COPD (chronic obstructive pulmonary disease) Arteriovenous fistula for hemodialysis in place, secondary Degenerative disc disease, lumbar Hypertension uncontrolled Surgical History Stented coronary artery H/O hand surgery Amputation right 2&3 fingers 2017 History of adenoidectomy Family History Other Hypertension Social History Smoking and tobacco/nicotine status: current every day tobacco/nicotine user cigarettes Packs smoked per day: 1.5 Years cigarettes smoked: 21 [ Other cigarette details: started age 20, currently 0.5ppd ] Alcohol intake: never Substance/Drug Use: never Number of children: 3 Current occupational status: disabled Do you think of yourself as: Straight/Heterosexual Physical Exam 2 Narrative: EXAM NARRATIVE: Constitutional: the patient appears well nourished and of normal development. Vital signs as documented. Mild pain.. Alert and oriented-to person, place, time and situation. Head, eyes, ears, nose, mouth, throat: Normocephalic, atraumatic. Pupils-equal, round, reactive to light. No scleral icterus. Normal-appearing external ears. Normal appearing nasal turbinates, no drainage. No obvious oral lesions, posterior oropharynx without erythema or exudates. Neck: Supple, trachea is midline, no lymphadenopathy, no jugular venous distension, thyromegaly, or carotid bruits. Carotid upstrokes are brisk bilaterally. Lungs: Coarse throughout, Symmetrical rise and fall of chest, no obvious signs of increased work of breathing at present. Cardiac: Regular rate and rhythm, positive S1, S2. No murmurs, rubs or gallops that I can appreciate Abdomen: Soft, non-tender to palpation, normal active bowel sounds to all quadrants. Moderate abdominal ascites, distended, Extremities: 2+ pulses in the upper extremities that are equal bilaterally, 2+ pulses in the lower extremities that are equal bilaterally. Left forearm with hemodialysis fistula positive thrill and bruit noted. Moves all extremities well, sensation to all extremities are noted. Genitourinary: Right inguinal hernia with extension into the scrotum, appears unchanged from previous. Skin: Warm, dry, intact. Course 2 Vital Signs: Vital signs: Vital Signs Temperature 98.1 F 07/14/23 22:54 Pulse Rate 100 07/15/23 02:12 Respiratory Rate 18 07/15/23 02:12 Blood Pressure 191/105 07/15/23 02:12 Pulse Oximetry 93 07/15/23 02:12 Oxygen Delivery Me thod Nasal Cannula 07/15/23 01:30 Oxygen Flow Rate 2 07/14/23 22:54 MDM - General Adult Medical Decision Making Physical exam completed and documented, I will obtain a CBC, CMP, lactic acid, procalcitonin and obtain IV access as well as provide the patient with morphine for pain medication and Zofran for nausea medication. Differential Diagnosis Chronic scrotal edema, inguinal hernia, cirrhosis with ascites, Medical Records I reviewed the patient's medical records. Lab Data I reviewed the patient's lab results. 07/14/23 23:33 07/14/23 23:33 Laboratory Results WBC 7.62 10^3/uL (3.29-11.43) 07/14/23 23:33 RBC 3.32 10^6/uL (3.85-5.65) L 07/14/23 23:33 Hgb 9.20 g/dL (11.27-16.99) L 07/14/23 23:33 Hct 28.1 % (37-53) L 07/14/23 23:33 MCV 84.6 fl (82-101) 07/14/23 23:33 MCH 27.7 pg (27-33) 07/14/23 23:33 MCHC 32.7 g/dL (30-55) 07/14/23 23:33 RDW 20.9 % (12.1-15.1) H 07/14/23 23:33 Plt Count 296 10^3/cmm (157-399) 07/14/23 23:33 MPV 8.8 fL (7.4-10.4) 07/14/23 23:33 Neut % (Auto) 76.5 % 07/14/23 23:33 Lymph % (Auto) 8.8 % 07/14/23 23:33 [place] % (Auto) 7.6 % 07/14/23 23:33 Eos % (Auto) 5.4 % 07/14/23 23:33 Baso % (Auto) 1.3 % 07/14/23 23:33 Neut # (Auto) 5.83 10^3/uL (1.8-7.7) 07/14/23 23:33 Lymph # (Auto) 0.7 10^3/uL (0.8-4.8) L 07/14/23 23:33 [place] # (Auto) 0.6 10^3/uL (0.2-0.9) 07/14/23 23:33 Eos # (Auto) 0.4 10^3/uL (0.0-0.8) 07/14/23 23: Baso # (Auto) 0.1 10^3/uL (0.0-0.1) 07/14/23 23:33 Nucleated RBC % (auto) 0.3 % 07/14/23 23: Nucleated RBCs # 0.0 /100WBC 07/14/23 23:33 Sodium 132 mmol/L (136-145) L 07/14/23 23:33 Potassium 5.1 mmol/L (3.5-5.1) 07/14/23 23:33 Chloride 89 mmol/L (98-107) L 07/14/23 23:33 Carbon Dioxide 29 mmol/L (22-29) 07/14/23 23:33 Anion Gap 19.1 (5-19) H 07/14/23 23:33 BUN 51 mg/dL (6-20) H 07/14/23 23:33 Creatinine 7.9 mg/dL (0.7-1.2) H* 07/14/23 23:33 GFR Calculation 7.6 mL/min (90-130) L 07/14/23 23:33 Glucose 71 mg/dL (65-115) 07/14/23 23:33 Calculated Osmolality 286 mOsm/kg (285-295) 07/14/23 23:33 Lactic Acid 0.5 mmol/L (0.5-2.2) 07/14/23 23:33 Calcium 10.0 mg/dL (8.5-10.5) 07/14/23 23:33 Total Bilirubin 0.4 mg/dL (0.15-1.2) 07/14/23 23:33 AST 11 U/L (0-40) 07/14/23 23:33 ALT 8 U/L (0-41) 07/14/23 23:33 Alkaline Phosphatase 119 U/L (40-130) 07/14/23 23:33 Total Protein 7.5 g/dL (6.6-8.7) 07/14/23 23:33 Albumin 3.5 g/dL (3.5-5.2) 07/14/23 23:33 Globulin 4.0 g/dL (1.3-4.6) 07/14/23 23:33 Procalcitonin 0.98 ng/mL (0-0.5) H 07/14/23 23:33 No radiology studies performed this visit Discharge Plan Discharge Patient Disposition: Home Clinical Impression: Inguinal hernia of right side without obstruction or gangrene, Hypertension, uncontrolled, End stage renal disease on dialysis Condition: Stable Prescriptions: No Action (DME) DME - BIPAP See Rx Instructions .Route .MEDSUPPLY Qty: 1 0RF Rx Instructions: Inspiratory Pressure: 16mmHg Expiratory Pressure: 8 mmHg Will need oxygen bled in to the machine to maintain sats >/= 90%. (DME) DME - Oxygen See Rx Instructions .Route .MEDSUPPLY Qty: 1 0RF Rx Instructions: Supplemental Oxygen bled into BIPAP at 2-3L to maintain oxygen sats at >/= 90%. Auryxia 210 mg iron Tablet See Rx Instructions .ROUTE .COMPLEX Rx Instructions: 420 mg (2 tabs) orally three times a day and 210mg (1 tab) with snacks aspirin 81 mg tablet,delayed release (DR/EC) 81 mg PO DAILY pantoprazole 40 mg tablet,delayed release (DR/EC) 40 mg PO DAILY isosorbide mononitrate 120 mg tablet extended release 24 hr 240 mg PO DAILY RenaPlex-D 800 mcg-12.5 mg -2,000 unit tablet 1 tab PO DAILY carvedilol 25 mg tablet 37.5 mg PO Q12H atorvastatin 40 mg tablet 40 mg PO BEDTIME amlodipine 10 mg tablet 10 mg PO DAILY hydralazine 100 mg tablet 100 mg PO Q8H prasugrel 10 mg tablet 10 mg PO DAILY cyanocobalamin (vitamin B-12) 1,000 mcg capsule 1,000 mcg PO DAILY Qty: 30 0RF ondansetron 4 mg tablet,disintegrating 4 mg translingual Q8H PRN (Reason: Nausea And Vomiting) minoxidil 2.5 mg tablet 10 mg PO TID hydrocodone-acetaminophen 5-325 mg Tablet 1 tab PO Q4H PRN (Reason: Moderate Pain) Qty: 10 0RF tramadol 50 mg tablet 50 mg PO Q8H PRN (Reason: pain) Qty: 14 0RF Discharge Orders: Discharge ED (Routine); Ordered 07/15/23 Ordered By: Heraclio Love Referrals: Mal Junior [Primary Care Provider] - Discharge Diet: Usual diet Discharge Activity: Resume usual activity Patient Instructions: Opioid Safety, Pain Management Activity Restrictions/Additional Instructions: Activity Restrictions/Additional Instructions: Thank you for choosing [facility] for your healthcare needs today. Please realize that you were seen in the Emergency Department and that we are providing you with an emergency medical screening exam and this may not be a complete and all inclusive of all the testing and or medical work-up that you may need to determine your ailment or severity of your illness. It is very important that you follow-up as instructed with your Primary care provider or Specialist for additional evaluation and to discuss your medical treatment plan. As you requested I have provided the contact information for [facility] pain management clinic which is located at [address] [place] [address] and their office number is [phone]. [facility] located at [address] [place], [place] [address], [place] [address] and their office number is [phone]. Coding Level of Care Code ED Plastic Surgery Assistant for Cristi Diane
[2023-07-14 23:38] LABS: Basophils # 0.1 10^3/uL (0.0-0.1); Basophils % 1.3 %; Eosinophils # 0.4 10^3/uL (0.0-0.8); Eosinophils % 5.4 %; Hematocrit 28.1 % (37-53); Lymphocytes # 0.7 10^3/uL (0.8-4.8); Lymphocytes % 8.8 %; Mean Corpuscular HGB Conc 32.7 g/dL (30-55); Mean Corpuscular Hemoglobin 27.7 pg (27-33); Mean Corpuscular Volume 84.6 fl (82-101); Mean Platelet Volume 8.8 fL (7.4-10.4); Monocytes # 0.6 10^3/uL (0.2-0.9); Monocytes % 7.6 %; Neutrophils # 5.83 10^3/uL (1.8-7.7); Neutrophils % 76.5 %; Nucleated Red Blood Cells % 0.3 %; Platelet Count 296 10^3/cmm (157-399); Red Blood Count 3.32 10^6/uL (3.85-5.65); Red Cell Distribution Width 20.9 % (12.1-15.1); White Blood Count 7.62 10^3/uL (3.29-11.43)
[2023-07-14] MEDS: ondansetron 2 mg/ML SDV 2 mL 4 MG IVP (23:42)
[2023-07-14] MEDS: hyDRALAzine 20 mg/mL INJ 1 mL 10 MG IVP (23:46)
[2023-07-14] MEDS: morphine 4 mg/mL SDV 1 mL IVP (23:52)
[2023-07-14 23:54] VITALS: BP 205/114; PULSE 87; RESP 18; O2SAT 96
[2023-07-15] VITALS (7 sets, daily range): BP systolic 191–216; BP diastolic 101–144; PULSE 92–102; RESP 18–27; O2SAT 93–97
[2023-07-15] LABS: Alanine Aminotransferase 8 U/L (0-41); Albumin Level 3.5 g/dL (3.5-5.2); Alkaline Phosphatase 119 U/L (40-130); Anion Gap 19.1 (5-19); Aspartate Amino Transferase 11 U/L (0-40); Blood Urea Nitrogen 51 mg/dL (6-20); Carbon Dioxide 29 mmol/L (22-29); Chloride 89 mmol/L (98-107); Glomerular Filtration Rate 7.6 mL/min (90-130); Glucose 71 mg/dL (65-115); Osmolality Calculated 286 mOsm/kg (285-295); Potassium 5.1 mmol/L (3.5-5.1); Sodium 132 mmol/L (136-145); Total Bilirubin 0.4 mg/dL (0.15-1.2); Total Protein 7.5 g/dL (6.6-8.7)
[2023-07-15 00:01] LABS: Lactic Sepsis W/Reflex 0.5 mmol/L (0.5-2.2)
[2023-07-15 00:05] LABS: Procalcitonin 0.98 ng/mL (0-0.5)
[2023-07-15] MEDS: morphine 4 mg/mL SDV 1 mL IVP (01:01)
[2023-07-15] MEDS: hyDRALAzine 20 mg/mL INJ 1 mL IVP (01:02)
[2023-07-15] MEDS: cloNIDine 0.1 mg Tablet 0.100000000000000006 MG PO (01:03)
[2023-07-15] MEDS: HYDROmorphone 1 mg/mL INJ 1 mL IVP (01:45)
== END 2023-07-15 02:15 | disposition home or self-care (01) ==
PROVIDERS: Emergency Provider Internal Medicine; PCP Family Medicine
DX: K40.90 Unilateral inguinal hernia, without obstruction or gangrene, not specified as recurrent (principal); I13.2 Hypertensive heart and chronic kidney disease with heart failure and with stage 5 chronic kidney disease, or end stage renal disease; N18.6 End stage renal disease; I50.9 Heart failure, unspecified; Z99.2 Dependence on renal dialysis; I25.10 Atherosclerotic heart disease of native coronary artery without angina pectoris; J44.9 Chronic obstructive pulmonary disease, unspecified; F17.210 Nicotine dependence, cigarettes, uncomplicated
CPT/HCPCS: 80053; 83605; 84145; 85025; 96374; 96375; 96376; 99284; J0360; J1170; J2270; J2405

== ENCOUNTER 2023-07-15 13:55 | Day surgery (SDC) | payer MEDICARE, MEDICAID, SELFPAY ==
--- NOTE | 2023-07-15 13:58 | US_ITS ---
WS: [id number] ULTRASOUND-GUIDED PARACENTESIS CLINICAL INFORMATION: Ascites COMPARISON: None. Procedure Informed consent: The risks, benefits, and alternatives of the procedure were discussed with the mariah ent. Verbal and written consent was obtained. Timeout: A timeout was performed to confirm the correct patient, procedure, and site. Preparation: A suitable skin site was identified. The patient was prepped and draped in usual sterile fashion. Lidocaine 1% was used for local anesthesia. Catheter: 4 Khmer One-step Yueh catheter. Side: LEFT lower quadrant. Fluid Volume: 3000 ml Color: Bloody DISPOSITION: Discarded safely. Complications: None. Patient disposition: Discharged from the department in stable condition. IMPRESSION: Uncomplicated ultrasound-guided paracentesis. Removal of 3000 cc
[2023-07-15 14:01] VITALS: BP 141/77; PULSE 76; RESP 18; TEMP 36.9; O2SAT 92
[2023-07-15 14:57] LABS: Cyto Order Verification Order Verified
[2023-07-15 15:48] LABS: Albumin Body Fluid 2.3 g/dL; Total Protein Body Fluid 4.3 g/dL
== END 2023-07-15 15:10 | disposition home or self-care (01) ==
LOC: GILAB 13:55
PROVIDERS: Radiology Neuroradiology; PCP Family Medicine; Visit Provider Nurse Practitioner Family
PROC: (CPT 49082; principal; 2023-07-15 13:30)
DX: R18.8 Other ascites (principal)
CPT/HCPCS: 49083; 80503; 82042; 84157; 87070; 87075; 87205; 88112; 89050

== ENCOUNTER 2023-07-19 13:16 | Inpatient (IN) | payer MEDICARE, MEDICAID, SELFPAY ==
[2023-07-19] VITALS (66 sets, daily range): BP systolic 123–189; BP diastolic 70–125; PULSE 64–92; RESP 12–29; TEMP 36.8–37.6; O2SAT 87–98; BMI 24.4; BMI 27.3
--- NOTE | 2023-07-19 13:32 | XRR_ITS ---
PROCEDURE INFORMATION: Exam: XR Chest Exam date and time: 07/19/2023 1:36 PM Age: 42 years old Clinical indication: Shortness of breath TECHNIQUE: Imaging protocol: Radiologic exam of the chest. Views: 1 view. COMPARISON: CR (CHEST, ) 05/24/2023 2:44 AM FINDINGS: Lungs: There is retrocardiac reticular opacities. No focal consolidation. Pleural spaces: Unremarkable. No pleural effusion. No pneumothorax. Heart/Mediastinum: There is cardiomegaly. Bones/joints: Old right 7th rib fracture. Mild degenerative of bilateral acromioclavicular joints. XR/XR chest 1V [id number] IMPRESSION: Retrocardiac atelectasis/early infiltrates.
--- NOTE | 2023-07-19 13:34 | W.ED.SOB ---
HPI - SOB/Dyspnea General: Chief Complaint: Shortness of Breath/Dyspnea Stated Complaint: sob Time Seen by Provider: 07/19/23 13:29 History of Present Illness: HPI Narrative: 42-year-old man with a history of end-stage renal disease on dialysis, cirrhosis, hypertension, hyperlipidemia, COPD and chronic hypoxemic respiratory failure and is on 4 L nasal cannula at all times who presents to the emergency room with worsening swelling and shortness of breath. He has diffuse swelling. He says he is ascites normally and this is worse. He also has a large hernia into his groin that is larger than usual. He has worsening swelling in his legs. He says he is very short of breath. He has had worsening cough. No known fevers. No nausea or vomiting. He says he was 20 minutes late for dialysis and they would not let him dialyzed. So he missed his last dialysis appointment. Review of Systems Narrative: Constitutional symptoms: Negative except as documented in HPI. Skin symptoms: Negative except as documented in HPI. Eye symptoms: Negative except as documented in HPI. ENMT symptoms: Negative except as documented in HPI. Respiratory symptoms: Negative except as documented in HPI. Cardiovascular symptoms: Negative except as documented in HPI. Gastrointestinal symptoms: Negative except as documented in HPI. Genitourinary symptoms: Negative except as documented in HPI. Musculoskeletal symptoms: Negative except as documented in HPI. Neurologic symptoms: Negative except as documented in HPI. Psychiatric symptoms: Negative except as documented in HPI. Endocrine symptoms: Negative except as documented in HPI. [facility] ED PFSH: Medical History Acute and chronic respiratory failure with hypoxia Patient under care of multiple providers Hypertensive urgency History of cardiovascular stress test 07/2022 at [facility] perfusion imaging probably normal, no reversible defects, small fixed defect in apical anterior wall, EF 54%, nonischemic response to stress by EKG criteria Depression Epididymitis 06/2022 Pulmonary hypertension Uses bilevel positive airway pressure (BPAP) ventilation at home Umbilical hernia History of home oxygen therapy History of coronary angiogram 11/2021 - patent stent Inguinal hernia Anxiety Chronic respiratory failure on home oxygen and bipap Low back pain Nicotine dependence, cigarettes, with other nicotine-induced disorders Generalized anxiety disorder with panic attacks ESRD on dialysis Atherosclerosis of coronary artery Stent and balloon angioplasty to proximal 1 OM branch Chronic abdominal pain COVID 05/25 Hypertensive emergency recurrent episodes Urethral stricture Abdominal ascites history of intermittent paracentesis, transudative fluid; prior work up has included negative biopsy, ceruloplasmin level normal, low iron, high ferritin, normal TIBC, negative HIV, hepatitis panel negative, JESÚS/SCL 70/double-stranded DNA antibodies negative, Alpha-fetoprotein level unremarkable, nonalcoholic by history, has hepatomegaly and splenomegaly Pulmonary embolism 09/21 CTA inconclusive for very tiny peripheral LEFT lower lobe pulmonary artery sub segmental emboli versus poor opacification. Anemia chronic kidney disease Congestive heart failure preserved ejection fraction COPD (chronic obstructive pulmonary disease) Arteriovenous fistula for hemodialysis in place, secondary Degenerative disc disease, lumbar Hypertension uncontrolled Surgical History Stented coronary artery H/O hand surgery Amputation right 2&3 fingers 2017 History of adenoidectomy Family History Other Hypertension Social History Smoking and tobacco/nicotine status: current every day tobacco/nicotine user cigarettes Packs smoked per day: 1.5 Years cigarettes smoked: 21 [ Other cigarette details: started age 20, currently 0.5ppd ] Alcohol intake: never Substance/Drug Use: never Number of children: 3 Current occupational status: disabled Do you think of yourself as: Straight/Heterosexual Physical Exam Narrative: EXAM NARRATIVE: General: Alert, appears ill. Skin: Warm, dry. Head: Normocephalic, atraumatic. Neck: Supple, trachea midline. Eye: Extraocular movements are intact. Ears, nose, mouth and throat: mucosa moist. Cardiovascular: Regular, Normal peripheral perfusion. 3+ pitting edema to the thighs. Abdominal wall edema. Respiratory: Coarse, scattered wheeze, tachypnea, moderate increased work of breathing,, breath sounds are equal, Symmetrical chest wall expansion. Gastrointestinal: Soft, distended and mild to moderate generalized nonfocal abdominal tenderness to palpation, Normal bowel sounds. Musculoskeletal: Normal ROM, no deformity. Neurological: Alert and oriented, No focal neurological deficit observed. Psychiatric: Cooperative, appropriate mood & affect. Course Vital Signs: Vital signs: Vital Signs Temperature 98.2 F 07/19/23 13:22 Pulse Rate 79 07/19/23 15:05 Respiratory Rate 16 07/19/23 15:05 Blood Pressure 187/125 07/19/23 15:05 Pulse Oximetry 93 07/19/23 15:05 Oxygen Delivery Me thod Nasal Cannula 07/19/23 15:05 Oxygen Flow Rate 4 07/19/23 15:05 MDM - SOB/Dyspnea Medical Decision Making Medical decision making: Differential diagnosis including but not limited to and based on the above HPI, review of systems and physical exam: This patient seems fairly obviously fluid overloaded. Concern for pulmonary edema. Also has large amount of ascites it appears. With his increased cough we will test him for flu and COVID. A chest x-ray has been obtained. Lab work is being obtained including hepatic panel. With him having cirrhosis a PT and INR been ordered. With him having end-stage renal disease on mag and Phos were ordered as well. EKG was ordered. Lab Review: Laboratory results were reviewed and interpreted by myself the emergency room physician. Patient has stable anemia with a hemoglobin of 9. BUN and creatinine are 62 and 10.2. His potassium is 4.9 here today. Chest x-ray: Cardiomegaly, early pulmonary edema versus a scattered infiltrate. This was reviewed and interpreted by myself the ER physician. Consultation: Spoke with Dr. Mckenna with virtual nephrology. She agrees with admission and dialysis in the ICU. Reexamination: Patient is fairly stable here in the emergency room. Stable for liter oxygen requirement. No altered mental status. No focal motor deficits. Lab Data 07/19/23 13:09 07/19/23 13:09 Labs/Radiology: Radiology Impressions Chest X-Ray 07/19/23 13:32 IMPRESSION: Retrocardiac atelectasis/early infiltrates. Laboratory Results WBC 6.63 10^3/uL (3.29-11.43) 07/19/23 13:09 RBC 3.33 10^6/uL (3.85-5.65) L 07/19/23 13:09 Hgb 9.20 g/dL (11.27-16.99) L 07/19/23 13:09 Hct 28.4 % (37-53) L 07/19/23 13:09 MCV 85.3 fl (82-101) 07/19/23 13:09 MCH 27.6 pg (27-33) 07/19/23 13:09 MCHC 32.4 g/dL (30-55) 07/19/23 13:09 RDW 20.8 % (12.1-15.1) H 07/19/23 13:09 Plt Count 221 10^3/cmm (157-399) 07/19/23 13:09 MPV 9.4 fL (7.4-10.4) 07/19/23 13:09 Neut % (Auto) 76.5 % 07/19/23 13:09 Lymph % (Auto) 8.6 % 07/19/23 13:09 [place] % (Auto) 8.3 % 07/19/23 13:09 Eos % (Auto) 5.0 % 07/19/23 13:09 Baso % (Auto) 1.1 % 07/19/23 13:09 Neut # (Auto) 5.08 10^3/uL (1.8-7.7) 07/19/23 13:09 Lymph # (Auto) 0.6 10^3/uL (0.8-4.8) L 07/19/23 13:09 [place] # (Auto) 0.6 10^3/uL (0.2-0.9) 07/19/23 13:09 Eos # (Auto) 0.3 10^3/uL (0.0-0.8) 07/19/23 13:09 Baso # (Auto) 0.1 10^3/uL (0.0-0.1) 07/19/23 13:09 Nucleated RBC % (auto) 0 % 07/19/23 13:09 Nucleated RBCs # 0.0 /100WBC 07/19/23 13:09 PT 15.20 SECONDS (12.1-14.9) H 07/19/23 13:09 INR 1.16 (0.8-1.2) 07/19/23 13:09 APTT 36.5 SECONDS (23.9-36.7) 07/19/23 13:09 Specimen Type Arterial 07/19/23 13:43 Sample Site Brachial, right 07/19/23 13:43 ABG pH 7.40 (7.35-7.45) 07/19/23 13:43 ABG pCO2 46.8 mmHg (35-45) H 07/19/23 13:43 ABG pO2 86.7 mmHg (80.0-100.0) 07/19/23 13:43 ABG PO2/FiO2 Ratio 0 07/19/23 13:43 ABG HCO3 28.8 mmol/L (22-26) H 07/19/23 13:43 ABG O2 Saturation 97.4 07/19/23 13:43 ABG Base Excess 3.5 mmol/L (-2.0-2.0) H 07/19/23 13:43 Alexei Test N/a 07/19/23 13:43 A-a O2 Gradient 14.5 mmHg (5-10) H 07/19/23 13:43 Hematocrit 28.5 % (42-52) L 07/19/23 13:43 Hgb O2 Saturation 94.4 % (95-100) L 07/19/23 13:43 Carboxyhemoglobin 2.4 %THgb (0.4-20.1) 07/19/23 13:43 Methemoglobin 0.7 % (0.4-1.5) 07/19/23 13:43 Total Hemoglobin 9.3 g/dL (14-18) L 07/19/23 13:43 Sodium 133.0 mmol/L (131-143) 07/19/23 13:43 Potassium 5.7 mmol/L (3.5-5.0) H 07/19/23 13:43 Glucose 76.0 mg/dL (70-115) 07/19/23 13:43 Ionized Calcium 1.3 mmol/L (1.1-1.4) 07/19/23 13:43 O2 Delivery Device Nc 07/19/23 13:43 O2 Liters/Min 4.0 % 07/19/23 13:43 FiO2 36.0 % 07/19/23 13:43 Release Manager ID Amh 07/19/23 13:43 Sodium 136 mmol/L (136-145) 07/19/23 13:09 Potassium 4.9 mmol/L (3.5-5.1) 07/19/23 13:09 Chloride 93 mmol/L (98-107) L 07/19/23 13:09 Carbon Dioxide 27 mmol/L (22-29) 07/19/23 13:09 Anion Gap 20.9 (5-19) H 07/19/23 13:09 BUN 62 mg/dL (6-20) H 07/19/23 13:09 Creatinine 10.2 mg/dL (0.7-1.2) H* 07/19/23 13:09 GFR Calculation 5.7 mL/min (90-130) L 07/19/23 13:09 Glucose 76 mg/dL (65-115) 07/19/23 13:09 Calculated Osmolality 298 mOsm/kg (285-295) H 07/19/23 13:09 Lactic Acid 0.4 mmol/L (0.5-2.2) L 07/19/23 13:09 Calcium 10.3 mg/dL (8.5-10.5) 07/19/23 13:09 Phosphorus 10.9 mg/dL (2.5-4.5) H* 07/19/23 13:09 Magnesium 2.0 mg/dL (1.7-2.3) 07/19/23 13:09 Total Bilirubin 0.5 mg/dL (0.15-1.2) 07/19/23 13:09 AST 14 U/L (0-40) 07/19/23 13:09 ALT 6 U/L (0-41) 07/19/23 13:09 Alkaline Phosphatase 123 U/L (40-130) 07/19/23 13:09 C-Reactive Protein 44.9 mg/L (0.0-4.9) H 07/19/23 13:09 Total Protein 7.1 g/dL (6.6-8.7) 07/19/23 13:09 Albumin 3.4 g/dL (3.5-5.2) L 07/19/23 13:09 Globulin 3.7 g/dL (1.3-4.6) 07/19/23 13:09 Influenza Type A Ag negative (Negative) 07/19/23 13:45 Influenza Type B Ag negative (Negative) 07/19/23 13:45 All radiology interpretation(s) finalized by discharge Other Data Assessment and plan: -Admission for urgent dialysis. -I discussed the patient with the hospitalist on-call who is admitting the patient. - Discussed findings and plan with patient. Answered any questions. - All laboratory values were reviewed and interpreted personally by myself, the ER physician - All imaging was reviewed and interpreted personally by myself, the ER physician. - Evaluation and treatment of this problem were appropriate in the emergency setting Discharge Plan Discharge Patient Disposition: Admitted As Inpatient Clinical Impression: End-stage renal disease needing dialysis, Anasarca, Volume overload Condition: Stable Coding Level of Care Code ED Dress Designer for Cristi Diane
[2023-07-19] MEDS: albuterol 2.5 mg/3 mL Neb INHALATION (13:44)
[2023-07-19] MEDS: ipratropium-albuterol 3 mL Neb INHALATION ×2 (13:44→21:33)
[2023-07-19 13:45] LABS: Basophils # 0.1 10^3/uL (0.0-0.1); Basophils % 1.1 %; Eosinophils # 0.3 10^3/uL (0.0-0.8); Hematocrit 28.4 % (37-53); Lymphocytes # 0.6 10^3/uL (0.8-4.8); Lymphocytes % 8.6 %; Mean Corpuscular HGB Conc 32.4 g/dL (30-55); Mean Corpuscular Hemoglobin 27.6 pg (27-33); Mean Corpuscular Volume 85.3 fl (82-101); Mean Platelet Volume 9.4 fL (7.4-10.4); Monocytes # 0.6 10^3/uL (0.2-0.9); Monocytes % 8.3 %; Neutrophils # 5.08 10^3/uL (1.8-7.7); Neutrophils % 76.5 %; Nucleated Red Blood Cells % 0 %; Platelet Count 221 10^3/cmm (157-399); Red Blood Count 3.33 10^6/uL (3.85-5.65); Red Cell Distribution Width 20.8 % (12.1-15.1); White Blood Count 6.63 10^3/uL (3.29-11.43)
[2023-07-19 13:54] LABS: ABG PCO2 46.8 mmHg (35-45); Alveolar-Arterial Oxygen Gradi 14.5 mmHg (5-10); Arterial Blood Gas Hematocrit 28.5 % (42-52); Base Excess ABG 3.5 mmol/L (-2.0-2.0); Blood Gas Operator Identificat AMH; Blood Gas Sample Site Brachial, right; Blood Gas Sample Type Arterial; Carboxyhemoglobin 2.4 %THgb (0.4-20.1); HCO3 ABG 28.8 mmol/L (22-26); HGB O2 Sat 94.4 % (95-100); Ionized Calcium Level - ABG 1.3 mmol/L (1.1-1.4); Methemoglobin 0.7 % (0.4-1.5); Oxygen Device NC; Oxygen Saturation ABG 97.4; PO2 ABG 86.7 mmHg (80.0-100.0); PO2 FiO2 Ratio Arterial Blood 0; Potassium Level - ABG 5.7 mmol/L (3.5-5.0); Total Hemoglobin 9.3 g/dL (14-18)
[2023-07-19 14:03] LABS: INR 1.16 (0.8-1.2)
[2023-07-19 14:04] LABS: Partial Thromboplastin Time 36.5 SECONDS (23.9-36.7)
[2023-07-19 14:09] LABS: Lactic Sepsis W/Reflex 0.4 mmol/L (0.5-2.2)
[2023-07-19 14:10] LABS: Alanine Aminotransferase 6 U/L (0-41); Albumin Level 3.4 g/dL (3.5-5.2); Alkaline Phosphatase 123 U/L (40-130); Anion Gap 20.9 (5-19); Aspartate Amino Transferase 14 U/L (0-40); Blood Urea Nitrogen 62 mg/dL (6-20); C Reactive Protein 44.9 mg/L (0.0-4.9); Calcium 10.3 mg/dL (8.5-10.5); Carbon Dioxide 27 mmol/L (22-29); Chloride 93 mmol/L (98-107); Globulin 3.7 g/dL (1.3-4.6); Glomerular Filtration Rate 5.7 mL/min (90-130); Glucose 76 mg/dL (65-115); Osmolality Calculated 298 mOsm/kg (285-295); Potassium 4.9 mmol/L (3.5-5.1); Sodium 136 mmol/L (136-145); Total Bilirubin 0.5 mg/dL (0.15-1.2); Total Protein 7.1 g/dL (6.6-8.7)
[2023-07-19 14:14] LABS: Influenza A by IFA negative (Negative); Influenza B by IFA negative (Negative)
[2023-07-19 14:20] LABS: Creatinine Clr Calc Pharmacy 11.0983; Phosphorus 10.9 mg/dL (2.5-4.5)
[2023-07-19] MEDS: HYDROcodone-acetaminophen 10-325 mg Tablet 1 TAB PO (14:25)
[2023-07-19 15:42] LABS: Coronavirus 229E,HKU1,NL63,OC4 Not Detected (NOT DETECT); SARS-COV-2 Not Detected (NOT DETECT)
--- NOTE | 2023-07-19 15:45 | ECG_ITS ---
[facility] Test Date: 2023-07-19 Pat Name: Mal Gibbs Department: Room: ICU12 Gender: Male Project Design Engineer: : 1980 Requested By: Tunde Umana Order Number: [id number] Mohini MD: Ruba Hussein M.D. Measurements Intervals [place] Rate: 79 P: 52 [place]: 226 QRS: 89 QRSD: 122 T: 79 QT: 383 QTc: 440 Interpretive Statements SINUS RHYTHM WITH FIRST DEGREE AV BLOCK POSSIBLE LEFT ATRIAL ENLARGEMENT [-0.1mV P-WAVE IN V1/V2] MODERATE INTRAVENTRICULAR CONDUCTION DELAY [110+ ms QRS DURATION] Compared to ECG 05/24/2023 10:18:02 Myocardial infarct finding no longer present Electronically Signed On 07-19-2023 21:42:51 CDT by Ruba Hussein M.D. [email or web address]
--- NOTE | 2023-07-19 15:51 | P.HP_ITS ---
Providers/Chief Complaint 2 Admitting Physician: Tunde Umana MD Primary Care Provider: Mal Junior Chief Complaint: sob History of Present Illness Mal Gibbs is a 42 year old male with a past medical history of chronic respiratory failure, current smoker, COPD, liver cirrhosis, requiring recurrent paracentesis, hypertension, hyperlipidemia, who presents [facility] due to increased shortness of breath increased abdominal distention, anasarca, after he missed dialysis. Patient tells me that he has been feeling increasingly short of breath, increased abdominal distention, anasarca, he had a paracentesis on Thursday, however today he missed his dialysis by few minutes. Denies any chest pain, no palpitations nonproductive cough he does report smoking does report wheezing, no lightheadedness, no dizziness, no nausea, no vomiting, Review of Systems 2 Const: Denies: fever(s) or chills Card: Denies: chest pain Resp: Reports: dyspnea GI: Denies: abdominal pain : Denies: flank pain Neuro: Denies: headache(s) Medications/Allergies Home Medications Medication Instructions Recorded Confirmed Last Taken Type ferric citrate 210 mg iron tablet See Rx Instructions .Route .COMPLEX 11/03/21 07/19/23 07/18/23 History (Auryxia) aspirin 81 mg tablet,delayed 81 mg PO DAILY 02/21/22 07/19/23 07/18/23 History release pantoprazole 40 mg tablet,delayed 40 mg PO DAILY 02/21/22 07/19/23 07/18/23 History release DME - BIPAP #1 ea 02/25/22 07/19/23 07/14/23 Rx DME - Oxygen #1 ea 02/25/22 07/19/23 07/14/23 Rx isosorbide mononitrate 120 mg 240 mg PO DAILY 10/01/22 07/19/23 07/18/23 History tablet,extended release 24 hr vit B,C-folic ac 800 mcg-zinc 12.5 1 tab PO DAILY 10/01/22 07/19/23 07/18/23 History mg-selen-D3 2,000 unit-vit E tablet (RenaPlex-D) amlodipine 10 mg tablet 10 mg PO DAILY 01/09/23 07/19/23 07/18/23 History atorvastatin 40 mg tablet 40 mg PO BEDTIME 01/09/23 07/19/23 07/18/23 History carvedilol 25 mg tablet 37.5 mg PO Q12H 01/09/23 07/19/23 07/18/23 History hydralazine 100 mg tablet 100 mg PO Q8H 01/09/23 07/19/23 07/18/23 History prasugrel 10 mg tablet 10 mg PO DAILY 01/09/23 07/19/23 07/18/23 History minoxidil 2.5 mg tablet 10 mg PO TID 05/19/23 07/19/23 07/18/23 History ondansetron 4 mg disintegrating 4 mg translingual Q8H PRN Nausea 05/19/23 07/19/23 07/14/23 History tablet And Vomiting Allergies Allergy/AdvReac Type Severity Reaction Status Date / Time spironolactone Allergy Intermediate facial Verified 07/19/23 13:28 swelling haloperidol [From Haldol] Allergy ADR-Irritab Verified 07/19/23 13:28 le lisinopril Allergy ADR-Swelling Verified 07/19/23 13:28 of the Eye nifedipine Allergy ALGY-Swell Verified 07/19/23 13:28 Lip/Tongue/Throat PFSH Acute 2 PFSH: Medical History Acute and chronic respiratory failure with hypoxia Patient under care of multiple providers Hypertensive urgency History of cardiovascular stress test 07/2022 at [facility] perfusion imaging probably normal, no reversible defects, small fixed defect in apical anterior wall, EF 54%, nonischemic response to stress by EKG criteria Depression Epididymitis 06/2022 Pulmonary hypertension Uses bilevel positive airway pressure (BPAP) ventilation at home Umbilical hernia History of home oxygen therapy History of coronary angiogram 11/2021 - patent stent Inguinal hernia Anxiety Chronic respiratory failure on home oxygen and bipap Low back pain Nicotine dependence, cigarettes, with other nicotine-induced disorders Generalized anxiety disorder with panic attacks ESRD on dialysis Atherosclerosis of coronary artery Stent and balloon angioplasty to proximal 1 OM branch Chronic abdominal pain COVID 05/25 Hypertensive emergency recurrent episodes Urethral stricture Abdominal ascites history of intermittent paracentesis, transudative fluid; prior work up has included negative biopsy, ceruloplasmin level normal, low iron, high ferritin, normal TIBC, negative HIV, hepatitis panel negative, JESÚS/SCL 70/double-stranded DNA antibodies negative, Alpha-fetoprotein level unremarkable, nonalcoholic by history, has hepatomegaly and splenomegaly Pulmonary embolism 09/21 CTA inconclusive for very tiny peripheral LEFT lower lobe pulmonary artery sub segmental emboli versus poor opacification. Anemia chronic kidney disease Congestive heart failure preserved ejection fraction COPD (chronic obstructive pulmonary disease) Arteriovenous fistula for hemodialysis in place, secondary Degenerative disc disease, lumbar Hypertension uncontrolled Surgical History Stented coronary artery H/O hand surgery Amputation right 2&3 fingers 2017 History of adenoidectomy Family History Other Hypertension Social History Smoking and tobacco/nicotine status: current every day tobacco/nicotine user cigarettes Packs smoked per day: 1.5 Years cigarettes smoked: 21 [ Other cigarette details: started age 20, currently 0.5ppd ] Alcohol intake: never Substance/Drug Use: never Number of children: 3 Current occupational status: disabled Do you think of yourself as: Straight/Heterosexual Vitals/I&O/Wt Last Vital Signs Temp 98.2 F 07/19/23 13:22 Pulse 79 07/19/23 15:05 Resp 16 07/19/23 15:05 BP 187/125 07/19/23 15:05 Pulse Ox 93 07/19/23 15:05 O2 Del Method Nasal Cannula 07/19/23 15:05 O2 Flow Rate 4 07/19/23 15:05 Weight last 48 hrs Weight 83.915 kg Physical Exam 2 Const: COMMON NORMALS: no acute distress and patient oriented x3 Eye: COMMON NORMALS: Equal, round and reactive pupils present and EOMs intact bilaterally Resp: COMMON NORMALS: normal respiratory effort, No retractions, No use of accessory muscles and clear to auscultation bilaterally AUSCULTATION: c rackles and wheezes Cardio: COMMON NORMALS: no JVD, regular rate, regular rhythm, S1 normal heart sound present and S2 normal heart sound present RATE: regular rate RHYTHM: regular rhythm HEART SOUNDS: S1 normal heart sound present and S2 normal heart sound present GI: COMMON NORMALS: Normal to inspection, nondistended, normoactive bowel sounds present, Soft to palpation and non-tender : OTHER: Abdomen soft, distended, fluid wave present, no rebound, no guarding, no rigidity, does have an umbilical hernia, which is reducible Extremity: COMMON NORMALS: no pedal edema Neuro: COMMON NORMALS: patient oriented x3, CN's II-XII intact bilaterally, moves all extremities and no focal motor deficits Psych: COMMON NORMALS: mental status grossly normal Data 07/19/23 13:09 07/19/23 13:09 A&P Assessment and plan (1) Acute respiratory failure with hypoxia: (2) CHF exacerbation: (3) CKD (chronic kidney disease) stage 5, GFR less than 15 ml/min: (4) COPD exacerbation: (5) Fluid overload: Plan Acute hypoxic respiratory failure ? Secondary to COPD exacerbation, fluid overload, missed dialysis, CHF exacerbation ? Plan ? Perform urgent dialysis ? BiPAP as needed ? Solu-Medrol 40 mg IV every 8 hours ? DuoNeb ? Monitor respiratory status closely ? Full code ? Heparin for DVT prophylaxis Liver cirrhosis, with abdominal ascites, status post paracentesis on Thursday will consider another session of paracentesis based on clinical progress Hypertension, resume home blood pressure medications Attestations 2 Medical Necessity Statement*: Patient requires hospitalization, inpatient, greater than 2 midnights, for acute hypoxic respiratory failure secondary to fluid overload, CHF exacerbation, missed dialysis, COPD exacerbation Diagnoses Acute respiratory failure with hypoxia J96.01 CHF exacerbation I50.9 CKD (chronic kidney disease) stage 5, GFR less than 15 ml/min N18.5 COPD exacerbation J44.1 Fluid overload E87.70
[2023-07-19] MEDS: morphine 4 mg/mL SDV 1 mL 2 MG IVP ×3 (15:59→23:48)
[2023-07-19 16:15] LABS: Troponin(5th) Baseline 113 ng/L (0-15)
[2023-07-19 16:16] LABS: Procalcitonin 0.53 ng/mL (0-0.5)
[2023-07-19] MEDS: carvedilol 25 mg Tablet 37.5 MG PO (16:18)
[2023-07-19 16:30] LABS: Adenovirus Not Detected (NOT DETECT); Human Metapneumovirus Not Detected (NOT DETECT); Human Rhinovirus/Enterovirus Not Detected (NOT DETECT); Influenza A Not Detected (NOT DETECT); Influenza A H1 Not Detected (NOT DETECT); Influenza A H1-2009 Not Detected (NOT DETECT); Influenza A H3 Not Detected (NOT DETECT); Influenza B Not Detected (NOT DETECT); Parainfluenza Virus Type 1 Not Detected (NOT DETECT); Parainfluenza Virus Type 2 Not Detected (NOT DETECT)
[2023-07-19 16:31] LABS: Chlamydia Pneumoniae Not Detected (NOT DETECT); Mycoplasma Pneumoniae Not Detected (NOT DETECT); Parainfluenza Virus Type 3 Not Detected (NOT DETECT); Parainfluenza Virus Type 4 Not Detected (NOT DETECT); Respiratory Syncytial Virus A Not Detected (NOT DETECT); Respiratory Syncytial Virus B Not Detected (NOT DETECT)
[2023-07-19 16:42] LABS: NT Pro B Type Natriuretic Pept > 70000 pg/mL (0-125)
[2023-07-19] MEDS: methylPREDNISolone sod succ 40 mg/mL INJ IVP ×2 (17:11→23:44)
[2023-07-19] MEDS: hyDRALAzine 50 mg Tablet 100 MG PO ×2 (17:11→23:44)
[2023-07-19] MEDS: heparin 5,000 unit/mL INJ 1 mL 5000 UNIT SUBCUT (17:11)
--- NOTE | 2023-07-19 17:16 | ECG_ITS ---
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 Measurements Intervals [place] Rate: 77 P: 65 AR: 225 QRS: 97 QRSD: 118 T: 89 QT: 386 QTc: 439 Interpretive Statements SINUS RHYTHM WITH FIRST DEGREE AV BLOCK POSSIBLE LEFT ATRIAL ENLARGEMENT [-0.1mV P-WAVE IN V1/V2] BORDERLINE RIGHT AXIS DEVIATION [QRS AXIS > 90] MODERATE INTRAVENTRICULAR CONDUCTION DELAY [110+ ms QRS DURATION] Compared to ECG 07/19/2023 16:05:09 No significant changes Electronically Signed On 07-20-2023 18:55:45 CDT by Ruba Hussein M.D. [id number]
[2023-07-19 18:45] LABS: Troponin 5 2HR Delta -4.9 ABS# (0-10)
[2023-07-19 18:46] LABS: Troponin 5 2HR 108.1 ng/L (0-15)
--- NOTE | 2023-07-19 18:58 | P.CONIM_ITS ---
Providers/Reason For Consult 2 Consulting Physician/Specialty*: kommana/nephrology Reason for Consult*: ESRD Attending Physician: Tunde Umana MD Primary Care Provider: Mal Junior History of Present Illness History of Present Illness Mal Gibbs is a 42 year old male Patient is a 50-year-old male with past medical history of end-stage renal disease on dialysis per TTS schedule, COPD, on home O2, liver cirrhosis requiring recurrent paracentesis, hypertension, dyslipidemia presented to the [facility] due to shortness of breath and abdominal distention. Patient missed dialysis on Thursday. Vital signs significant for hypoxia and was placed on 4 L nasal cannula, blood pressure elevated at 187/125, lab data significant for hemoglobin of 9.2 and. Potassium 4.9. Chest x-ray showed vascular congestion. s Review of Systems 2 Narrative: OTHER ros ENGATIVE Medications/Allergies Home Medications Medication Instructions Recorded Confirmed Last Taken Type ferric citrate 210 mg iron tablet See Rx Instructions .Route .COMPLEX 11/03/21 07/19/23 07/18/23 History (Auryxia) aspirin 81 mg tablet,delayed 81 mg PO DAILY 02/21/22 07/19/23 07/18/23 History release pantoprazole 40 mg tablet,delayed 40 mg PO DAILY 02/21/22 07/19/23 07/18/23 History release DME - BIPAP #1 ea 02/25/22 07/19/23 07/14/23 Rx DME - Oxygen #1 ea 02/25/22 07/19/23 07/14/23 Rx isosorbide mononitrate 120 mg 240 mg PO DAILY 10/01/22 07/19/23 07/18/23 History tablet,extended release 24 hr vit B,C-folic ac 800 mcg-zinc 12.5 1 tab PO DAILY 10/01/22 07/19/23 07/18/23 History mg-selen-D3 2,000 unit-vit E tablet (RenaPlex-D) amlodipine 10 mg tablet 10 mg PO DAILY 01/09/23 07/19/23 07/18/23 History atorvastatin 40 mg tablet 40 mg PO BEDTIME 01/09/23 07/19/23 07/18/23 History carvedilol 25 mg tablet 37.5 mg PO Q12H 01/09/23 07/19/23 07/18/23 History hydralazine 100 mg tablet 100 mg PO Q8H 01/09/23 07/19/23 07/18/23 History prasugrel 10 mg tablet 10 mg PO DAILY 01/09/23 07/19/23 07/18/23 History minoxidil 2.5 mg tablet 10 mg PO TID 05/19/23 07/19/23 07/18/23 History ondansetron 4 mg disintegrating 4 mg translingual Q8H PRN Nausea 05/19/23 07/19/23 07/14/23 History tablet And Vomiting Allergies Allergy/AdvReac Type Severity Reaction Status Date / Time spironolactone Allergy Intermediate facial Verified 07/19/23 13:28 swelling haloperidol [From Haldol] Allergy ADR-Irritab Verified 07/19/23 13:28 le lisinopril Allergy ADR-Swelling Verified 07/19/23 13:28 of the Eye nifedipine Allergy ALGY-Swell Verified 07/19/23 13:28 Lip/Tongue/Throat Current Medications Generic Name Dose Route Start Last Admin Trade Name Freq PRN Reason Stop Dose Admin Albuterol/Ipratropium 3 ml 07/19/23 16:00 07/19/23 18:41 Ipratropium-Albuterol 3 Ml Neb INHALATION Not Given QID.RESPIRATORY ARTEM Carvedilol 37.5 mg 07/19/23 15:53 07/19/23 16:18 Carvedilol 25 Mg Tablet PO 37.5 mg Q12H ARTEM Administration Heparin Sodium (Porcine) 5,000 unit 07/19/23 16:00 07/19/23 17:11 Heparin 5,000 Unit/Ml Inj 1 Ml SUBCUT 5,000 unit Q12H ARTEM Administration Hydralazine HCl 100 mg 07/19/23 16:00 07/19/23 17:11 Hydralazine 50 Mg Tablet PO 100 mg Q8H ARTEM Administration Methylprednisolone Sodium Succinate 40 mg 07/19/23 16:00 07/19/23 17:11 Methylprednisolone Sod Succ 40 Mg/Ml Inj IVP 40 mg Q8H ARTEM Administration Morphine Sulfate 2 mg 07/19/23 15:53 07/19/23 15:59 Morphine 4 Mg/Ml Sdv 1 Ml IVP 2 mg Q4H PRN Administration SEVERE PAIN PFSH Acute 2 PFSH: Medical History Acute and chronic respiratory failure with hypoxia Patient under care of multiple providers Hypertensive urgency History of cardiovascular stress test 07/2022 at [facility] perfusion imaging probably normal, no reversible defects, small fixed defect in apical anterior wall, EF 54%, nonischemic response to stress by EKG criteria Depression Epididymitis 06/2022 Pulmonary hypertension Uses bilevel positive airway pressure (BPAP) ventilation at home Umbilical hernia History of home oxygen therapy History of coronary angiogram 11/2021 - patent stent Inguinal hernia Anxiety Chronic respiratory failure on home oxygen and bipap Low back pain Nicotine dependence, cigarettes, with other nicotine-induced disorders Generalized anxiety disorder with panic attacks ESRD on dialysis Atherosclerosis of coronary artery Stent and balloon angioplasty to proximal 1 OM branch Chronic abdominal pain COVID 05/25 Hypertensive emergency recurrent episodes Urethral stricture Abdominal ascites history of intermittent paracentesis, transudative fluid; prior work up has included negative biopsy, ceruloplasmin level normal, low iron, high ferritin, normal TIBC, negative HIV, hepatitis panel negative, JESÚS/SCL 70/double-stranded DNA antibodies negative, Alpha-fetoprotein level unremarkable, nonalcoholic by history, has hepatomegaly and splenomegaly Pulmonary embolism 09/21 CTA inconclusive for very tiny peripheral LEFT lower lobe pulmonary artery sub segmental emboli versus poor opacification. Anemia chronic kidney disease Congestive heart failure preserved ejection fraction COPD (chronic obstructive pulmonary disease) Arteriovenous fistula for hemodialysis in place, secondary Degenerative disc disease, lumbar Hypertension uncontrolled Surgical History Stented coronary artery H/O hand surgery Amputation right 2&3 fingers 2017 History of adenoidectomy Family History Other Hypertension Social History Smoking and tobacco/nicotine status: current every day tobacco/nicotine user cigarettes Packs smoked per day: 1.5 Years cigarettes smoked: 21 [ Other cigarette details: started age 20, currently 0.5ppd ] Alcohol intake: never Substance/Drug Use: never Number of children: 3 Current occupational status: disabled Do you think of yourself as: Straight/Heterosexual Vitals/I&O/Wt Last Vital Signs Temp 98.2 F 07/19/23 13:22 Pulse 75 07/19/23 16:30 Resp 28 H 07/19/23 15:20 BP 189/108 07/19/23 16:30 Pulse Ox 94 07/19/23 16:15 O2 Del Method Nasal Cannula 07/19/23 18:42 O2 Flow Rate 4 07/19/23 16:10 Weight last 48 hrs Weight 93.894 kg Weight 83.915 kg Physical Exam 2 Narrative: awake , alert , no distress Data 07/19/23 13:09 07/19/23 13:09 A&P Assessment and plan (1) End stage renal disease on dialysis: Plan 1. End-stage renal disease: On TTS schedule as outpatient, missed HD on Thursday, now presented with volume overload and plan for dialysis today and ultrafiltration as tolerated. Will assess in a.m. for repeat HD 2. Volume overload: Multifactorial, history of COPD and pulmonary edema 3 liver cirrhosis 4. Anemia: Will order TREY with HD 5. History of CHF Patient evaluated using audiovisual cart. Time spent 40-minutes Consult Attestations 2 Medical Necessity Statement: per howie Coding Level of Care Code Acute Code for Chg Fwd Diagnoses End stage renal disease on dialysis N18.6; Z99.2
[2023-07-19 20:42] LABS: Troponin 5 6HR 108.9 ng/L (0-15); Troponin 5 6HR Delta -4.1 ng/L (0-12)
[2023-07-19] MEDS: minoxidil 10 mg Tablet PO (21:17)
[2023-07-19] MEDS: atorvastatin 40 mg Tablet PO (21:18)
--- NOTE | 2023-07-19 21:45 | ECG_ITS ---
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 Measurements Intervals [place] Rate: 91 P: 62 NH: 213 QRS: 100 QRSD: 118 T: 78 QT: 376 QTc: 463 Interpretive Statements SINUS RHYTHM WITH FIRST DEGREE AV BLOCK WITH OCCASIONAL VENTRICULAR PREMATURE COMPLEXES LEFT ATRIAL ENLARGEMENT [-0.15mV P-WAVE IN V1/V2] BORDERLINE RIGHT AXIS DEVIATION [QRS AXIS > 90] MODERATE INTRAVENTRICULAR CONDUCTION DELAY [110+ ms QRS DURATION] Compared to ECG 07/19/2023 17:16:51 Ventricular premature complex(es) now present Electronically Signed On 07-20-2023 18:56:15 CDT by Ruba Hussein M.D. [id number]
[2023-07-20] VITALS (35 sets, daily range): BP systolic 118–173; BP diastolic 73–100; PULSE 66–97; RESP 12–39; TEMP 36.4–36.8; O2SAT 90–98
[2023-07-20] MEDS: carvedilol 25 mg Tablet 37.5 MG PO ×2 (03:28→16:47)
[2023-07-20] MEDS: acetaminophen 325 mg Tablet 650 MG PO ×2 (03:28→16:48)
[2023-07-20] MEDS: heparin 5,000 unit/mL INJ 1 mL 5000 UNIT SUBCUT ×2 (03:29→16:47)
[2023-07-20] MEDS: morphine 4 mg/mL SDV 1 mL 2 MG IVP ×5 (04:22→22:02)
[2023-07-20 04:54] LABS: Basophils % 0.4 %; Hematocrit 31.3 % (37-53); Lymphocytes # 0.2 10^3/uL (0.8-4.8); Lymphocytes % 2.9 %; Mean Corpuscular HGB Conc 32.3 g/dL (30-55); Mean Corpuscular Hemoglobin 27.7 pg (27-33); Mean Corpuscular Volume 85.8 fl (82-101); Mean Platelet Volume 9.6 fL (7.4-10.4); Monocytes # 0.1 10^3/uL (0.2-0.9); Monocytes % 1.1 %; Neutrophils # 4.97 10^3/uL (1.8-7.7); Nucleated Red Blood Cells % 0 %; Platelet Count 226 10^3/cmm (157-399); Red Blood Count 3.65 10^6/uL (3.85-5.65); Red Cell Distribution Width 20.7 % (12.1-15.1); White Blood Count 5.23 10^3/uL (3.29-11.43)
[2023-07-20 05:20] LABS: Alanine Aminotransferase < 5 U/L (0-41); Albumin Level 3.4 g/dL (3.5-5.2); Alkaline Phosphatase 113 U/L (40-130); Anion Gap 17.3 (5-19); Aspartate Amino Transferase 11 U/L (0-40); Blood Urea Nitrogen 42 mg/dL (6-20); Calcium 10.5 mg/dL (8.5-10.5); Carbon Dioxide 28 mmol/L (22-29); Chloride 91 mmol/L (98-107); Creatinine Clr Calc Pharmacy 14.7222; Globulin 3.6 g/dL (1.3-4.6); Glomerular Filtration Rate 7.6 mL/min (90-130); Glucose 121 mg/dL (65-115); Osmolality Calculated 284 mOsm/kg (285-295); Potassium 5.3 mmol/L (3.5-5.1); Sodium 131 mmol/L (136-145); Total Bilirubin 0.5 mg/dL (0.15-1.2)
[2023-07-20 05:28] LABS: Phosphorus 8.4 mg/dL (2.5-4.5)
[2023-07-20 05:34] LABS: NT Pro B Type Natriuretic Pept > 35000 pg/mL (0-125)
--- NOTE | 2023-07-20 05:45 | P.PN_ITS ---
Subjective 2 Subjective: s/p HD yesterday Medications: Reviewed: Yes Vitals/I&O/Wt Last Vital Signs Temp 98.3 F 07/20/23 04:00 Pulse 69 07/20/23 05:41 Resp 18 07/20/23 04:22 BP 173/86 07/20/23 04:00 Pulse Ox 96 07/20/23 04:00 O2 Del Method Nasal Cannula 07/20/23 04:00 O2 Flow Rate 4 07/20/23 04:00 07/19/23 07/19/23 07/20/23 14:59 22:59 06:59 Intake Total 642 / 642 462 / 1104 Output Total 3300 / 3300 Balance -2658 / -2658 462 / -2196 Weight last 48 hrs Weight 89.993 kg Weight 89.5 kg Weight 93.894 kg Weight 83.915 kg Physical Exam 2 Narrative: awake , alert , no distress Data 07/21/23 04:50 07/21/23 04:50 A&P Assessment and plan (1) End stage renal disease on dialysis: Plan 1. End-stage renal disease: On TTS schedule as outpatient, missed HD on Thursday, presented with volume overload and s/p HD yesterday , 2. Volume overload: Multifactorial, history of COPD and pulmonary edema 3 liver cirrhosis 4. Anemia: Will order TREY with HD 5. History of CHF Patient evaluated using audiovisual cart. Time spent 20-minutes Attestations 2 Medical Necessity Statement*: per howie Coding Level of Care Code Acute Code for Chg Fwd Diagnoses End stage renal disease on dialysis N18.6; Z99.2
[2023-07-20] MEDS: ipratropium-albuterol 3 mL Neb INHALATION ×4 (07:28→19:22)
--- NOTE | 2023-07-20 08:23 | CT_ITS ---
WS: [id number] CT CHEST, ABDOMEN, AND PELVIS TECHNIQUE: Noncontrast CT of the chest, abdomen, and pelvis with coronal and sagittal reformatted pablo ges. CLINICAL INFORMATION: resp failure, abdominal distention, sbp vs pna COMPARISON: None. DLP: 1110.[address] scans at [facility] use at least one of these dose optimization techniques: automated e xposure control; mA and/or kV adjustment per patient size (includes targeted exams where dose is matc hed to clinical indication); or iterative reconstruction. CT CHEST: Patchy airspace infiltrates in both lower lobes and lingula with subsegmental atelectasis. Recommend correlation for pneumonia. Additional airspace infiltrates in the LEFT upper lobe posteriorly. Cardio megaly. Moderate pericardial effusion. Diffuse chest wall anasarca. Normal caliber thoracic aorta. Co ronary calcification. Prominent mediastinal and hilar lymph nodes likely reactive. Mild interstitial thickening in both lungs likely due to edema. CT ABDOMEN AND PELVIS: Hepatic cirrhosis. Moderate abdominal ascites stable compared to 06/26/2023. Protruding umbilical turner ia unchanged in appearance. Large RIGHT inguinal hernia containing ascites is unchanged in appearance . Fluid and food products in the stomach. Diffuse body wall anasarca. Noncontrast pancreas is normal. Atrophic kidneys bilaterally. Normal caliber abdominal aorta. Aortic calcification. Few sigmoid dive rticuli. No evidence of high-grade obstruction. Chronic spondylolysis L5-S1 with grade 1 anterolisthe sis. IMPRESSION: 1. Patchy airspace infiltrates in both lower lobes lingula and LEFT upper lobe posteriorly. Recommen d correlation for pneumonia. 2. Cardiomegaly with moderate pericardial effusion. 3. Moderate abdominal ascites unchanged compared to 06/26/2023. 4. Cirrhotic liver. 5. Diffuse body wall anasarca. 6. Atrophic kidneys. 7. RIGHT inguinal hernia containing ascites is unchanged. 8. Protruding umbilical hernia unchanged in appearance. 9. Chronic spondylolysis L5-S1 with grade 1 anterolisthesis.
[2023-07-20] MEDS: prasugrel 10 MG Tablet PO (08:24)
[2023-07-20] MEDS: amlodipine 10 mg Tablet PO (08:24)
[2023-07-20] MEDS: aspirin 81 mg EC Tablet PO (08:24)
[2023-07-20] MEDS: isosorbide mononitrate ER 60 mg Tablet 240 MG PO (08:24)
[2023-07-20] MEDS: pantoprazole DR 40 mg Tablet PO (08:24)
[2023-07-20] MEDS: hyDRALAzine 50 mg Tablet 100 MG PO ×3 (08:24→23:08)
[2023-07-20] MEDS: methylPREDNISolone sod succ 40 mg/mL INJ IVP ×3 (08:24→23:08)
[2023-07-20] MEDS: vancomycin 1,000 MG in sodium chloride 0.9% 250 ML 250 MG IV (10:17)
[2023-07-20] MEDS: minoxidil 10 mg Tablet PO ×3 (10:17→21:50)
[2023-07-20] MEDS: piperacillin-tazobactam 3.375 GM in sodium chloride 0.9% (plus) 50 ML IV ×2 (10:17→21:51)
--- NOTE | 2023-07-20 11:07 | PC.NURSE ---
Taken to CT via wheelchair on 4L NC. Tolerated well.
--- NOTE | 2023-07-20 12:04 | USCV_ITS ---
Mal Gibbs Age: 42 Gender: M : 1980 Exam Date: 07/20/2023 18:24 Ordering Phys: Tunde Umana MD Technologist: SUSIE [place]am [place] [facility] [place]ication: end-stage renal dz, on dialysis, HTN, HL, COPD, chronic hypoxemia, O2 dependent 4L. BP: 131 / 78 HR: 85 Rhythm: mostly sinus rhythm with some strings of Afib Technical Quality: Good MEASUREMENTS (Male / Female) Normal Values 2D ECHO LV Diastolic Diameter PLAX 5.3 cm 4.2 - 5.9 / 3.9 - 5.3 cm LV Systolic Diameter PLAX 3.8 cm IVS Diastolic Thickness 1.4 cm 0.6 - 1.0 / 0.6 - 0.9 cm IVS Systolic Thickness 1.7 cm LVPW Diastolic Thickness 1.8 cm 0.6 - 1.0 / 0.6 - 0.9 cm LVPW Systolic Thickness 2.3 cm LVOT Diameter 2.2 cm LV Ejection Fraction 2D Teich 54.5 % LV Ejection Fraction MOD 2C 63.6 % LV Ejection Fraction 2C AL 62.5 % LA Diameter 5.6 cm Aorta at Sinotubular Diameter 3.3 cm IVC Diameter 2.4 cm M-MODE LA Ao Ratio MM 2.0 AV Cusp Separation MM 2.0 cm DOPPLER AV Peak Velocity 232.0 cm/s LVOT Peak Velocity 159.0 cm/s AV Area Cont Eq vti 2.4 cm squared AV Area Cont Eq pk 2.6 cm squared MV Peak Velocity 238.0 cm/s MV Area PHT 3.6 cm squared Mitral E to A Ratio 1.3 TV Peak Velocity 331.7 cm/s TR Peak Velocity 348.0 cm/s TR Peak Gradient 48.4 mmHg TV Peak E Velocity 82.0 cm/s Right Atrial Pressure 10.0 mmHg Pulmonary Artery Systolic Pressu 58.4 mmHg PV Peak Velocity 150.0 cm/s FINDINGS Left Ventricle Left ventricle is normal size. LV systolic function is normal with EF of 60-65%. No regional wall motion abnormalities are seen. Moderate left ventricular hypertrophy. Right Ventricle Normal size and function Right Atrium Normal in size Left Atrium Dilated Mitral Valve Moderate mitral annular calcification. Moderate mitral stenosis with mean gradient of 7.2 mmHg. Mild mitral regurgitation. Aortic Valve Structurally normal aortic valve. Mild aortic stenosis with mean gradient of 10 mmHg and aortic valve area of 2.3 cm2 Tricuspid Valve Moderate tricuspid regurgitation. RVSP is 55 to 60 mmHg. Moderate pulmonary hypertension. Pulmonic Valve Grossly normal. Pericardium Small to medium sized pericardial effusion seen. Aorta Normal in size IVC Dilated CONCLUSIONS LV systolic function is normal with EF of 60 to 65%. Moderate left ventricular hypertrophy. Left atrial dilation. Moderate mitral stenosis. Mild mitral regurgitation Mild aortic stenosis. Moderate tricuspid regurgitation. Moderate pulmonary hypertension Small to medium sized pericardial effusion. IVC is dilated. Compared to prior echocardiogram from 2021, patient now has moderate mitral stenosis and mild aortic stenosis Brijesh King MD (Electronically Signed) Final Date: 21 July 2023 08:10 S
--- NOTE | 2023-07-20 12:05 | P.PN_ITS ---
Subjective 2 Subjective: Patient was seen this morning, he continues to complain of fatigue, malaise, shortness of breath, abdominal distention, no fevers overnight, does have a nonproductive cough, no chest pain, no palpitations, received dialysis yesterday, plan for dialysis today Vitals/I&O/Wt Last Vital Signs Temp 98.3 F 07/20/23 04:00 Pulse 83 07/20/23 11:35 Resp 16 07/20/23 11:25 BP 161/84 07/20/23 09:00 Pulse Ox 98 07/20/23 11:25 O2 Del Method Nasal Cannula 07/20/23 07:25 O2 Flow Rate 5 07/20/23 11:25 07/19/23 07/20/23 07/20/23 22:59 06:59 14:59 Intake Total 642 / 642 462 / 1104 360 / 360 Output Total 3300 / 3300 Balance -2658 / -2658 462 / -2196 360 / 360 Weight last 48 hrs Weight 89.993 kg Weight 89.5 kg Weight 93.894 kg Weight 83.915 kg Physical Exam 2 Const: COMMON NORMALS: no acute distress and patient oriented x3 Resp: COMMON NORMALS: normal respiratory effort, No retractions and No use of accessory muscles AUSCULTATION: crackles and wheezes Cardio: COMMON NORMALS: regular rate, regular rhythm, S1 normal heart sound present and S2 normal heart sound present RATE: regular rate RHYTHM: r egular rhythm HEART SOUNDS: S1 normal heart sound present and S2 normal heart sound present GI: COMMON NORMALS: Normal to inspection, nondistended, normoactive bowel sounds present and non-tender OTHER: Has umbilical hernia, reducible, Extremity: COMMON NORMALS: no pedal edema Neuro: COMMON NORMALS: patient oriented x3 Psych: COMMON NORMALS: mental status grossly normal Data 07/20/23 04:15 07/20/23 04:15 A&P Assessment and plan (1) Acute respiratory failure with hypoxia: (2) CHF exacerbation: (3) CKD (chronic kidney disease) stage 5, GFR less than 15 ml/min: (4) COPD exacerbation: (5) Fluid overload: (6) Pneumonia: Plan Acute hypoxic respiratory failure ? Secondary to COPD exacerbation, fluid overload, missed dialysis, CHF exacerbation, pneumonia ? Plan ? Patient will receive second round of dialysis as inpatient today ? BiPAP as needed ? Solu-Medrol 40 mg IV every 8 hours -CT chest show evidence of pneumonia, started vancomycin, Rocephin ? DuoNeb ? Monitor respiratory status closely ? Full code ? Heparin for DVT prophylaxis Pneumonia, seen on CT of the chest, ? started vancomycin, Zosyn ?sputum cultures, blood cultures Increased abdominal distention, with pain -With history of ascites,and liver cirrhosis, concern for possible spontaneous bacterial peritonitis -Start Zosyn -Order ultrasound paracentesis with studies Moderate pericardial effusion, no hemodynamic compromise order cardiac echo Liver cirrhosis, with abdominal ascites, status post paracentesis on Thursday will consider another session of paracentesis based on clinical progress Hypertension, resume home blood pressure medications Plan for today continue dialysis as inpatient, to help with fluid overload, ordered CT chest abdomen pelvis, which showed pneumonia, started on vancomycin, Zosyn, blood cultures, sputum cultures, patient was also found to have moderate pericardial effusion, ordered cardiac echo Attestations 2 Medical Necessity Statement*: Patient requires hospitalization, inpatient, greater than 2 midnights, for acute hypoxic respiratory failure secondary COPD, fluid overload, missed dialysis, CHF exacerbation, pneumonia, requiring inpatient dialysis, IV antibiotics, concerns for possible spontaneous bacterial peritonitis, paracentesis ordered Diagnoses Acute respiratory failure with hypoxia J96.01 CHF exacerbation I50.9 CKD (chronic kidney disease) stage 5, GFR less than 15 ml/min N18.5 COPD exacerbation J44.1 Fluid overload E87.70 Pneumonia J18.9
[2023-07-20] MEDS: heparin, porcine 1,000 unit/mL INJ 10 mL 1000 UNIT IV (12:34)
[2023-07-20] MEDS: atorvastatin 40 mg Tablet PO (21:51)
[2023-07-21] VITALS (16 sets, daily range): BP systolic 126–167; BP diastolic 68–84; PULSE 70–98; RESP 16–20; TEMP 36.3–36.4; O2SAT 94–97
[2023-07-21] MEDS: morphine 4 mg/mL SDV 1 mL 2 MG IVP ×5 (02:29→19:49)
[2023-07-21] MEDS: heparin 5,000 unit/mL INJ 1 mL 5000 UNIT SUBCUT ×2 (04:54→15:00)
[2023-07-21] MEDS: carvedilol 25 mg Tablet 37.5 MG PO ×2 (04:55→14:56)
[2023-07-21 05:09] LABS: Basophils % 0.1 %; Hematocrit 29.4 % (37-53); Lymphocytes # 0.2 10^3/uL (0.8-4.8); Lymphocytes % 2.1 %; Mean Corpuscular Hemoglobin 27.7 pg (27-33); Mean Corpuscular Volume 86.7 fl (82-101); Mean Platelet Volume 9.2 fL (7.4-10.4); Monocytes # 0.2 10^3/uL (0.2-0.9); Monocytes % 2.2 %; Neutrophils # 7.87 10^3/uL (1.8-7.7); Nucleated Red Blood Cells % 0 %; Platelet Count 245 10^3/cmm (157-399); Red Blood Count 3.39 10^6/uL (3.85-5.65); Red Cell Distribution Width 21.1 % (12.1-15.1); White Blood Count 8.28 10^3/uL (3.29-11.43)
[2023-07-21 05:40] LABS: C Reactive Protein 38.7 mg/L (0.0-4.9)
[2023-07-21 05:44] LABS: Alanine Aminotransferase < 5 U/L (0-41); Albumin Level 3.5 g/dL (3.5-5.2); Alkaline Phosphatase 103 U/L (40-130); Anion Gap 17.7 (5-19); Aspartate Amino Transferase 10 U/L (0-40); Blood Urea Nitrogen 39 mg/dL (6-20); Calcium 10.7 mg/dL (8.5-10.5); Carbon Dioxide 29 mmol/L (22-29); Chloride 94 mmol/L (98-107); Globulin 3.4 g/dL (1.3-4.6); Glomerular Filtration Rate 9.5 mL/min (90-130); Glucose 126 mg/dL (65-115); Magnesium 2.1 mg/dL (1.7-2.3); Osmolality Calculated 291 mOsm/kg (285-295); Potassium 5.7 mmol/L (3.5-5.1); Sodium 135 mmol/L (136-145); Total Bilirubin 0.4 mg/dL (0.15-1.2); Total Protein 6.9 g/dL (6.6-8.7)
[2023-07-21 05:47] LABS: Procalcitonin 0.43 ng/mL (0-0.5)
[2023-07-21] MEDS: ondansetron 2 mg/ML SDV 2 mL 4 MG IVP ×3 (05:58→19:50)
[2023-07-21 06:18] LABS: Creatinine Clr Calc Pharmacy 17.7491; Phosphorus 8.2 mg/dL (2.5-4.5)
--- NOTE | 2023-07-21 08:23 | US_ITS ---
WS: [id number] Abdominal ultrasound, limited. History: Evaluate for ascites. Comparison: None. All 4 quadrants are imaged by ultrasound to evaluate for ascites. Small amount of free fluid noted in all 4 quadrants. Insufficiency or paracentesis. IMPRESSION: Small amount of ascites. Insufficient for paracentesis at this time.
[2023-07-21] MEDS: ipratropium-albuterol 3 mL Neb INHALATION ×3 (08:46→20:34)
[2023-07-21] MEDS: hyDRALAzine 50 mg Tablet 100 MG PO ×3 (09:33→23:24)
[2023-07-21] MEDS: amlodipine 10 mg Tablet PO (09:33)
[2023-07-21] MEDS: methylPREDNISolone sod succ 40 mg/mL INJ IVP ×3 (09:33→23:24)
[2023-07-21] MEDS: pantoprazole DR 40 mg Tablet PO (09:33)
[2023-07-21] MEDS: aspirin 81 mg EC Tablet PO (09:34)
[2023-07-21] MEDS: isosorbide mononitrate ER 60 mg Tablet 240 MG PO (09:34)
[2023-07-21] MEDS: minoxidil 10 mg Tablet PO ×3 (09:34→19:59)
[2023-07-21] MEDS: piperacillin-tazobactam 3.375 GM in sodium chloride 0.9% (plus) 50 ML IV ×2 (09:34→19:49)
[2023-07-21] MEDS: prasugrel 10 MG Tablet PO (09:53)
[2023-07-21] MEDS: metoclopramide 5 mg/mL SDV 2 mL IVP (09:55)
--- NOTE | 2023-07-21 10:11 | P.PN_ITS ---
Subjective 2 Subjective: s/p HD yesterday Medications: Reviewed: Yes Vitals/I&O/Wt Last Vital Signs Temp 97.5 F L 07/21/23 09:39 Pulse 86 07/21/23 09:39 Resp 16 07/21/23 09:54 BP 167/84 07/21/23 09:39 Pulse Ox 97 07/21/23 09:39 O2 Del Method Nasal Cannula 07/21/23 08:00 O2 Flow Rate 4 07/21/23 08:00 07/20/23 07/21/23 07/21/23 22:59 06:59 14:59 Intake Total 960 / 1320 300 / 1620 Output Total 2800 / 2800 Balance -1840 / -1480 300 / -1180 Weight last 48 hrs Weight 87.815 kg Weight 88.3 kg Weight 89.993 kg Weight 89.5 kg Weight 93.894 kg Weight 83.915 kg Physical Exam 2 Narrative: awake , alert , no distress Data 07/21/23 04:50 07/21/23 04:50 Micro: Microbiology 07/20/23 15:43 Blood Culture - Preliminary Blood SPECIMEN COLLECTED 07/20/23 15:48 Blood Culture - Preliminary Blood SPECIMEN COLLECTED A&P Assessment and plan (1) End stage renal disease on dialysis: Plan 1. End-stage renal disease: On TTS schedule as outpatient, missed HD on Thursday, presented with volume overload and s/p HD yesterday , K remians high , ordered kayexylate , repeat bmp in the afternoon Low K diet 2. Volume overload: Multifactorial, history of COPD and pulmonary edema 3 liver cirrhosis 4. Anemia: Will order TREY with HD 5. History of CHF Patient evaluated using audiovisual cart. Time spent 20-minutes Attestations 2 Medical Necessity Statement*: per [facility] Coding Level of Care Code Acute Code for Chg Fwd Diagnoses End stage renal disease on dialysis N18.6; Z99.2
--- NOTE | 2023-07-21 11:40 | P.PN_ITS ---
Subjective 2 Subjective: Patient was seen this morning, he is sitting up in bed, we discussed his elevated potassium levels he refuses Kayexalate, will recheck it in the afternoon, denies any chest pain, no palpitations or shortness of breath Vitals/I&O/Wt Last Vital Signs Temp 97.5 F L 07/21/23 09:39 Pulse 86 07/21/23 09:39 Resp 16 07/21/23 09:54 BP 167/84 07/21/23 09:39 Pulse Ox 97 07/21/23 09:39 O2 Del Method Nasal Cannula 07/21/23 08:00 O2 Flow Rate 4 07/21/23 08:00 07/20/23 07/21/23 07/21/23 22:59 06:59 14:59 Intake Total 960 / 1320 300 / 1620 Output Total 2800 / 2800 Balance -1840 / -1480 300 / -1180 Weight last 48 hrs Weight 87.815 kg Weight 88.3 kg Weight 89.993 kg Weight 89.5 kg Weight 93.894 kg Weight 83.915 kg Physical Exam 2 Const: COMMON NORMALS: no acute distress and patient oriented x3 Resp: COMMON NORMALS: normal respiratory effort, No retractions, No use of accessory muscles and clear to auscultation bilaterally AUSCULTATION: clear to auscultation bilaterally Cardio: COMMON NORMALS: regular rate, regular rhythm, S1 normal heart sound present and S2 normal heart sound present RATE: regular rate RHYTHM: r egular rhythm HEART SOUNDS: S1 normal heart sound present and S2 normal heart sound present GI: COMMON NORMALS: Normal to inspection, nondistended, normoactive bowel sounds present and non-tender Extremity: COMMON NORMALS: no pedal edema Neuro: COMMON NORMALS: patient oriented x3 Psych: COMMON NORMALS: mental status grossly normal Data 07/21/23 04:50 07/21/23 04:50 Micro: Microbiology 07/20/23 15:43 Blood Culture - Preliminary Blood SPECIMEN COLLECTED 07/20/23 15:48 Blood Culture - Preliminary Blood SPECIMEN COLLECTED A&P Assessment and plan (1) Acute respiratory failure with hypoxia: (2) CHF exacerbation: (3) CKD (chronic kidney disease) stage 5, GFR less than 15 ml/min: (4) COPD exacerbation: (5) Fluid overload: (6) Pneumonia: Plan Acute hypoxic respiratory failure ? Secondary to COPD exacerbation, fluid overload, missed dialysis, CHF exacerbation, pneumonia ? Plan ? BiPAP as needed ? Solu-Medrol 40 mg IV every 8 hours -CT chest show evidence of pneumonia, vancomycin, Zosyn ? DuoNeb ? Monitor respiratory status closely ? Full code ? Heparin for DVT prophylaxis Pneumonia, seen on CT of the chest, ? started vancomycin, Zosyn ?sputum cultures, blood cultures Increased abdominal distention, with pain -With history of ascites,and liver cirrhosis, concern for possible spontaneous bacterial peritonitis -Zosyn -Order ultrasound paracentesis with studies Moderate pericardial effusion, no hemodynamic compromise order cardiac echo CONCLUSIONS LV systolic function is normal with EF of 60 to 65%. Moderate left ventricular hypertrophy. Left atrial dilation. Moderate mitral stenosis. Mild mitral regurgitation Mild aortic stenosis. Moderate tricuspid regurgitation. Moderate pulmonary hypertension Small to medium sized pericardial effusion. IVC is dilated. Compared to prior echocardiogram from 2021, patient now has moderate mitral stenosis and mild aortic stenosis Liver cirrhosis, with abdominal ascites, status post paracentesis on Thursday will consider another session of paracentesis based on clinical progress Hypertension, resume home blood pressure medications Hyperkalemia, potassium 5.7, recheck in the afternoon we will decide on insulin D50 patient refuses Kayexalate, understands morbidity and mortality associate with hyperkalemia Plan for today continue dialysis as inpatient, to help with fluid overload, continue IV antibiotics, monitor serum potassium levels Attestations 2 Medical Necessity Statement*: Patient requires hospitalization for respiratory failure secondary to pneumonia Diagnoses Acute respiratory failure with hypoxia J96.01 CHF exacerbation I50.9 CKD (chronic kidney disease) stage 5, GFR less than 15 ml/min N18.5 COPD exacerbation J44.1 Fluid overload E87.70 Pneumonia J18.9
[2023-07-21 16:12] LABS: Anion Gap 19.6 (5-19); Blood Urea Nitrogen 46 mg/dL (6-20); Calcium 10.7 mg/dL (8.5-10.5); Carbon Dioxide 27 mmol/L (22-29); Chloride 95 mmol/L (98-107); Creatinine Clr Calc Pharmacy 18.0265; Glomerular Filtration Rate 9.7 mL/min (90-130); Glucose 124 mg/dL (65-115); Osmolality Calculated 295 mOsm/kg (285-295); Potassium 5.6 mmol/L (3.5-5.1); Sodium 136 mmol/L (136-145)
[2023-07-21 18:08] LABS: Blood Urea Nitrogen 51 mg/dL (6-20); Calcium 10.4 mg/dL (8.5-10.5); Carbon Dioxide 23 mmol/L (22-29); Chloride 92 mmol/L (98-107); Creatinine Clr Calc Pharmacy 16.0235; Glomerular Filtration Rate 8.5 mL/min (90-130); Glucose 123 mg/dL (65-115); Osmolality Calculated 289 mOsm/kg (285-295); Sodium 132 mmol/L (136-145)
[2023-07-21 18:18] LABS: Anion Gap 23.1 (5-19); Potassium 6.1 mmol/L (3.5-5.1)
[2023-07-21] MEDS: atorvastatin 40 mg Tablet PO (19:59)
[2023-07-22] MEDS: morphine 4 mg/mL SDV 1 mL 2 MG IVP ×3 (00:16→10:42)
[2023-07-22] MEDS: ondansetron 2 mg/ML SDV 2 mL 4 MG IVP ×2 (00:16→05:28)
[2023-07-22 04:00] VITALS: BP 131/69; PULSE 86; RESP 17; TEMP 36.6; O2SAT 95
[2023-07-22 05:14] LABS: Hematocrit 28.4 % (37-53); Lymphocytes # 0.2 10^3/uL (0.8-4.8); Lymphocytes % 2.2 %; Mean Corpuscular Hemoglobin 27.8 pg (27-33); Mean Corpuscular Volume 86.9 fl (82-101); Mean Platelet Volume 9.3 fL (7.4-10.4); Monocytes # 0.2 10^3/uL (0.2-0.9); Monocytes % 2.1 %; Neutrophils # 7.73 10^3/uL (1.8-7.7); Neutrophils % 94.6 %; Nucleated Red Blood Cells % 0 %; Platelet Count 216 10^3/cmm (157-399); Red Blood Count 3.27 10^6/uL (3.85-5.65); Red Cell Distribution Width 20.9 % (12.1-15.1); White Blood Count 8.17 10^3/uL (3.29-11.43)
[2023-07-22 05:56] LABS: C Reactive Protein 25.9 mg/L (0.0-4.9)
[2023-07-22 05:57] LABS: Alanine Aminotransferase < 5 U/L (0-41); Albumin Level 3.6 g/dL (3.5-5.2); Alkaline Phosphatase 96 U/L (40-130); Anion Gap 19.5 (5-19); Aspartate Amino Transferase 9 U/L (0-40); Blood Urea Nitrogen 59 mg/dL (6-20); Calcium 10.7 mg/dL (8.5-10.5); Carbon Dioxide 27 mmol/L (22-29); Chloride 94 mmol/L (98-107); Globulin 3.5 g/dL (1.3-4.6); Glomerular Filtration Rate 7.7 mL/min (90-130); Glucose 118 mg/dL (65-115); Magnesium 2.1 mg/dL (1.7-2.3); Osmolality Calculated 296 mOsm/kg (285-295); Procalcitonin 0.39 ng/mL (0-0.5); Sodium 134 mmol/L (136-145); Total Bilirubin 0.3 mg/dL (0.15-1.2); Total Protein 7.1 g/dL (6.6-8.7)
[2023-07-22 06:26] LABS: Potassium 6.5 mmol/L (3.5-5.1)
[2023-07-22 06:27] LABS: Creatinine Clr Calc Pharmacy 15.0624; Phosphorus 9.9 mg/dL (2.5-4.5)
[2023-07-22 07:28] VITALS: BP 152/81; PULSE 79; RESP 16; TEMP 36.6; O2SAT 92
[2023-07-22 08:00] VITALS: PULSE 80; RESP 16; O2SAT 96
[2023-07-22] MEDS: ipratropium-albuterol 3 mL Neb INHALATION (08:09)
[2023-07-22] MEDS: heparin, porcine 1,000 unit/mL INJ 10 mL 1000 UNIT IV (08:26)
[2023-07-22] MEDS: insulin regular-human 10 UNIT in SYRINGE 1 EACH IVP (09:00)
[2023-07-22] MEDS: calcium gluconate 0.1 gm/mL 10% SDV 10mL 1 GM IVP (09:00)
[2023-07-22 09:22] VITALS: BP 130/72; PULSE 81; RESP 16; TEMP 36.6
--- NOTE | 2023-07-22 09:23 | PC.HD ---
Heparin 1000 units loading dose administered via venous needle of LAVF per refrigerator room clerk's orders at 0826.
--- NOTE | 2023-07-22 10:03 | PC.SOCIAL ---
IMM Update pg 2 of IMM updated and reviewed with patient. Copy provided and Copy dated, initialed and placed in chart.
--- NOTE | 2023-07-22 10:22 | PM.DCS ---
Discharge Providers Date of Admission: 07/19/23 15:35 Date of Discharge: July 22, 2023 Attending Provider at Admission: Tunde Umana MD Attending Provider at Discharge: Tunde Umana MD Primary Care Provider: Mal Junior Diagnoses at Discharge Discharge Diagnosis (1) End stage renal disease on dialysis: Status: Acute (2) Acute respiratory failure with hypoxia: Status: Resolved (3) Fluid overload: Status: Resolved (4) CKD (chronic kidney disease) stage 5, GFR less than 15 ml/min: Status: Inactive (5) Pneumonia: Status: Inactive (6) CHF exacerbation: Status: Resolved (7) COPD exacerbation: Status: Acute Reason for Visit Reason for Visit: sob Hospital Course Hospital Course Mal Gibbs is a 42 year old male with a past medical history of chronic respiratory failure, current smoker, COPD, liver cirrhosis, requiring recurrent paracentesis, hypertension, hyperlipidemia, who presents [facility] due to increased shortness of breath increased abdominal distention, anasarca, after he missed dialysis. Patient tells me that he has been feeling increasingly short of breath, increased abdominal distention, anasarca, he had a paracentesis on Thursday, however today he missed his dialysis by few minutes. Denies any chest pain, no palpitations nonproductive cough he does report smoking does report wheezing, no lightheadedness, no dizziness, no nausea, no vomiting, Patient was admitted to [facility] for acute hypoxic respiratory failure secondary to COPD exacerbation fluid overload missed dialysis CHF pneumonia patient was monitored as inpatient received inpatient dialysis broad-spectrum antibiotic therapy steroid therapy overall patient clinically improved. For his COPD exacerbation, discharged on a present on taper. For his pneumonia discharged on doxycycline. Patient was counseled on staying regular with his dialysis appointments Patient had hyperkalemia during his hospitalization, requiring dialysis, insulin, D50, patient was extensively counseled on morbidity and mortality associate with hyperkalemia, advised of compliance of dialysis appointments For his increased abdominal distention, has a history of ascites receives regular paracentesis, during his hospitalization he did not have enough fluid to tap, blood cultures from his prior tap on Thursday of last week within normal limits Physical Exam Const: COMMON NORMALS: no acute distress and patient oriented x3 Resp: COMMON NORMALS: normal respiratory effort, No retractions, No use of accessory muscles and clear to auscultation bilaterally AUSCULTATION: clear to auscultation bilaterally Cardio: COMMON NORMALS: regular rate, regular rhythm, S1 normal heart sound present and S2 normal heart sound present RATE: regular rate RHYTHM: regular rhythm HEART SOUNDS: S1 normal heart sound present and S2 normal heart sound present GI: COMMON NORMALS: Normal to inspection, nondistended, normoactive bowel sounds present and non-tender Extremity: COMMON NORMALS: no pedal edema Neuro: COMMON NORMALS: patient oriented x3 Psych: COMMON NORMALS: mental status grossly normal Discharge Data Studies Completed and Pending Completed Studies During Hospitalization Category Date Time Status CT chest abdomen pelvis [[place] [id number] Cat Scan 07/20/23 08:23 Completed ] Routine XR chest 1V [id number] Stat Exams 07/19/23 13:32 Completed CV. echo complete* [id number] Routine Ultrasound 07/20/23 12:04 Completed US abdomen lmt fluid [id number] Routine Ultrasound 07/21/23 08:23 Completed Pending at discharge Category Date Time Status Albumin Body Fluid Routine Lab 07/20/23 08:24 Ordered Amylase Body Fluid Routine Lab 07/20/23 08:24 Ordered Anaerobic Culture Routine Lab 07/20/23 08:24 Ordered BMP [Basic Metabolic Panel] Stat Lab 07/22/23 12:00 Ordered Blood Culture Stat Lab 07/20/23 15:43 Results Body Fluid Analysis Routine Lab 07/20/23 08:24 Ordered Body Fluid Culture & GS Routine Lab 07/20/23 08:24 Ordered Body Fluid Specific [place] Routine Lab 07/20/23 08:24 Ordered C Reactive Protein AM LABS Lab 07/23/23 04:00 Ordered Cholesterol Body Fluid Routine Lab 07/20/23 08:24 Ordered Cyto Order Verification Routine Lab 07/20/23 08:24 Ordered Fluid Alkaline Phos. Routine Lab 07/20/23 08:24 Ordered Glucose Body Fluid Routine Lab 07/20/23 08:24 Ordered LDH Body Fluid Routine Lab 07/20/23 08:24 Ordered Procalcitonin AM LABS Lab 07/23/23 04:00 Ordered Sputum Culture and Gram Stain Stat Lab 07/20/23 12:09 Uncollected Total Protein Body Fluid Routine Lab 07/20/23 08:24 Ordered Triglycerides Body Fluid Routine Lab 07/20/23 08:24 Ordered Uric Acid Body Fluid Routine Lab 07/20/23 08:24 Ordered pH Body Fluid Routine Lab 07/20/23 08:24 Ordered Cytology [PTH] Routine Pth 07/20/23 08:24 Ordered Radiology Impressions Chest X-Ray 07/19/23 13:32 IMPRESSION: Retrocardiac atelectasis/early infiltrates. Laboratory Results WBC 8.17 10^3/uL (3.29-11.43) 07/22/23 04:48 RBC 3.27 10^6/uL (3.85-5.65) L 07/22/23 04:48 Hgb 9.10 g/dL (11.27-16.99) L 07/22/23 04:48 Hct 28.4 % (37-53) L 07/22/23 04:48 MCV 86.9 fl (82-101) 07/22/23 04:48 MCH 27.8 pg (27-33) 07/22/23 04:48 MCHC 32.0 g/dL (30-55) 07/22/23 04:48 RDW 20.9 % (12.1-15.1) H 07/22/23 04:48 Plt Count 216 10^3/cmm (157-399) 07/22/23 04:48 MPV 9.3 fL (7.4-10.4) 07/22/23 04:48 Neut % (Auto) 94.6 % 07/22/23 04:48 Lymph % (Auto) 2.2 % 07/22/23 04:48 [place] % (Auto) 2.1 % 07/22/23 04:48 Eos % (Auto) 0.0 % 07/22/23 04:48 Baso % (Auto) 0.0 % 07/22/23 04:48 Neut # (Auto) 7.73 10^3/uL (1.8-7.7) H 07/22/23 04:48 Lymph # (Auto) 0.2 10^3/uL (0.8-4.8) L 07/22/23 04:48 [place] # (Auto) 0.2 10^3/uL (0.2-0.9) 07/22/23 04:48 Eos # (Auto) 0.0 10^3/uL (0.0-0.8) 07/22/23 04:48 Baso # (Auto) 0.0 10^3/uL (0.0-0.1) 07/22/23 04:48 Nucleated RBC % (auto) 0 % 07/22/23 04:48 Nucleated RBCs # 0.0 /100WBC 07/22/23 04:48 PT 15.20 SECONDS (12.1-14.9) H 07/19/23 13:09 INR 1.16 (0.8-1.2) 07/19/23 13:09 APTT 36.5 SECONDS (23.9-36.7) 07/19/23 13:09 Specimen Type Arterial 07/19/23 13:43 Sample Site Brachial, right 07/19/23 13:43 ABG pH 7.40 (7.35-7.45) 07/19/23 13:43 ABG pCO2 46.8 mmHg (35-45) H 07/19/23 13:43 ABG pO2 86.7 mmHg (80.0-100.0) 07/19/23 13:43 ABG PO2/FiO2 Ratio 0 07/19/23 13:43 ABG HCO3 28.8 mmol/L (22-26) H 07/19/23 13:43 ABG O2 Saturation 97.4 07/19/23 13:43 ABG Base Excess 3.5 mmol/L (-2.0-2.0) H 07/19/23 13:43 Alexei Test N/a 07/19/23 13:43 A-a O2 Gradient 14.5 mmHg (5-10) H 07/19/23 13:43 Hematocrit 28.5 % (42-52) L 07/19/23 13:43 Hgb O2 Saturation 94.4 % (95-100) L 07/19/23 13:43 Carboxyhemoglobin 2.4 %THgb (0.4-20.1) 07/19/23 13:43 Methemoglobin 0.7 % (0.4-1.5) 07/19/23 13:43 Total Hemoglobin 9.3 g/dL (14-18) L 07/19/23 13:43 Sodium 133.0 mmol/L (131-143) 07/19/23 13:43 Potassium 5.7 mmol/L (3.5-5.0) H 07/19/23 13:43 Glucose 76.0 mg/dL (70-115) 07/19/23 13:43 Ionized Calcium 1.3 mmol/L (1.1-1.4) 07/19/23 13:43 O2 Delivery Device Nc 07/19/23 13:43 O2 Liters/Min 4.0 % 07/19/23 13:43 FiO2 36.0 % 07/19/23 13:43 Financial Services Assistant ID Amh 07/19/23 13:43 Sodium 134 mmol/L (136-145) L 07/22/23 04:48 Potassium 6.5 mmol/L (3.5-5.1) H* 07/22/23 04:48 Chloride 94 mmol/L (98-107) L 07/22/23 04:48 Carbon Dioxide 27 mmol/L (22-29) 07/22/23 04:48 Anion Gap 19.5 (5-19) H 07/22/23 04:48 BUN 59 mg/dL (6-20) H 07/22/23 04:48 Creatinine 7.8 mg/dL (0.7-1.2) H* 07/22/23 04:48 GFR Calculation 7.7 mL/min (90-130) L 07/22/23 04:48 Glucose 118 mg/dL (65-115) H 07/22/23 04:48 Calculated Osmolality 296 mOsm/kg (285-295) H 07/22/23 04:48 Lactic Acid 0.4 mmol/L (0.5-2.2) L 07/19/23 13:09 Calcium 10.7 mg/dL (8.5-10.5) H 07/22/23 04:48 Phosphorus 9.9 mg/dL (2.5-4.5) H* D 07/22/23 04:48 Magnesium 2.1 mg/dL (1.7-2.3) 07/22/23 04:48 Total Bilirubin 0.3 mg/dL (0.15-1.2) 07/22/23 04:48 AST 9 U/L (0-40) 07/22/23 04:48 ALT < 5 U/L (0-41) 07/22/23 04:48 Alkaline Phosphatase 96 U/L (40-130) 07/22/23 04:48 Troponin T Baseline 113 ng/L (0-15) H* 07/19/23 13:29 Troponin T 120 Minute 108.1 ng/L (0-15) H 07/19/23 18:16 Delta Troponin T -4.9 ABS# (0-10) L 07/19/23 18:16 Troponin T Hi Sens 6Hr 108.9 ng/L (0-15) H 07/19/23 19:45 Troponin T Hi Sens 6Hr Delta -4.1 ng/L (0-12) L 07/19/23 19:45 C-Reactive Protein 25.9 mg/L (0.0-4.9) H 07/22/23 04:48 NT-Pro-B Natriuret Pep > 91832 pg/mL (0-125) H 07/20/23 04:15 Total Protein 7.1 g/dL (6.6-8.7) 07/22/23 04:48 Albumin 3.6 g/dL (3.5-5.2) 07/22/23 04:48 Globulin 3.5 g/dL (1.3-4.6) 07/22/23 04:48 Procalcitonin 0.39 ng/mL (0-0.5) 07/22/23 04:48 TSH 0.90 uIU/mL (0.27-4.20) 07/20/23 04:15 Adenovirus (PCR) Cancelled 07/19/23 16:08 C. pneumoniae DNA (PCR) Cancelled 07/19/23 16:08 Coronavirus 229E (PCR) Cancelled 07/19/23 16:08 Human Metapneumovir PCR Cancelled 07/19/23 16:08 Influenza A (H1) PCR Cancelled 07/19/23 16:08 Influ A (H1/09) PCR Cancelled 07/19/23 16:08 Influenza A (H3) PCR Cancelled 07/19/23 16:08 Influenza Type A Ag negative (Negative) 07/19/23 13:45 Influenza Type A (PCR) Cancelled 07/19/23 16:08 Influenza Type B Ag negative (Negative) 07/19/23 13:45 Influenza Type B (PCR) Cancelled 07/19/23 16:08 M. pneumoniae (PCR) Cancelled 07/19/23 16:08 Parainfluenza 1 (PCR) Cancelled 07/19/23 16:08 Parainfluenza 2 (PCR) Cancelled 07/19/23 16:08 Parainfluenza 3 (PCR) Cancelled 07/19/23 16:08 Parainfluenza 4 (PCR) Cancelled 07/19/23 16:08 RSV Type A (PCR) Cancelled 07/19/23 16:08 RSV Type B (PCR) Cancelled 07/19/23 16:08 Entero/Rhino (PCR) Cancelled 07/19/23 16:08 SARS-CoV-2 (PCR) Cancelled 07/19/23 16:08 Vitals Last Vital Signs Temp 97.9 F 07/22/23 09:22 Pulse 81 07/22/23 09:22 Resp 16 07/22/23 09:22 BP 130/72 07/22/23 09:22 Pulse Ox 96 07/22/23 08:00 O2 Del Method Nasal Cannula 07/22/23 08:00 O2 Flow Rate 3 07/22/23 08:00 Discharge Plan Discharge Patient Disposition: Home Condition: Stable Prescriptions: New prednisone 20 mg tablet 20 mg PO BID 5 Days Qty: 10 0RF doxycycline hyclate 100 mg tablet 100 mg PO BID 7 Days Qty: 14 0RF Continued (DME) DME - BIPAP See Rx Instructions .Route .MEDSUPPLY Qty: 1 0RF Rx Instructions: Inspiratory Pressure: 16mmHg Expiratory Pressure: 8 mmHg Will need oxygen bled in to the machine to maintain sats >/= 90%. (DME) DME - Oxygen See Rx Instructions .Route .MEDSUPPLY Qty: 1 0RF Rx Instructions: Supplemental Oxygen bled into BIPAP at 2-3L to maintain oxygen sats at >/= 90%. Auryxia 210 mg iron Tablet See Rx Instructions .ROUTE .COMPLEX Rx Instructions: 420 mg (2 tabs) orally three times a day and 210mg (1 tab) with snacks aspirin 81 mg tablet,delayed release (DR/EC) 81 mg PO DAILY pantoprazole 40 mg tablet,delayed release (DR/EC) 40 mg PO DAILY isosorbide mononitrate 120 mg tablet extended release 24 hr 240 mg PO DAILY RenaPlex-D 800 mcg-12.5 mg -2,000 unit tablet 1 tab PO DAILY carvedilol 25 mg tablet 37.5 mg PO Q12H atorvastatin 40 mg tablet 40 mg PO BEDTIME amlodipine 10 mg tablet 10 mg PO DAILY hydralazine 100 mg tablet 100 mg PO Q8H prasugrel 10 mg tablet 10 mg PO DAILY ondansetron 4 mg tablet,disintegrating 4 mg translingual Q8H PRN (Reason: Nausea And Vomiting) minoxidil 2.5 mg tablet 10 mg PO TID Discharge Orders: Discharge Order (Routine); Ordered 07/22/23 Ordered By: Tunde Umana Referrals: [facility] [Other] - 07/23/23 10:40 am (Your chair time is 10:40-15:30 on Tuesdays, , and Saturdays. ) Mal Junior [Primary Care Provider] - Discharge Diet: Cardiac Discharge Activity: Resume usual activity Patient Instructions: Dialysis Diet (DC), Hemodialysis (DC), Opioid Safety Activity Restrictions/Additional Instructions: - Please take antibiotics as prescribed, ? Please go to your regular scheduled dialysis appointments, ? Take antibiotics as prescribed ?if you have any fevers or chills or shortness of breath to go to emergency room Discharge Attestations Time Spent in Discharge Care*: greater than 30 min Status at Discharge: Cognitive status at discharge: cognitively intact, Behavioral status at discharge: cooperative, Quality Metrics Clinical Quality Measures [ No reported AMI, CVA or VTE this stay] Coding Level of Care Code 79757 Total time (in minutes) for Discharge: 45 Diagnoses End stage renal disease on dialysis N18.6; Z99.2 Acute respiratory failure with hypoxia J96.01 Fluid overload E87.70 CKD (chronic kidney disease) stage 5, GFR less than 15 ml/min N18.5 Pneumonia J18.9 CHF exacerbation I50.9 COPD exacerbation J44.1
[2023-07-22] MEDS: epoetin alfa 1000 Unit/0.05 mL (ESRD) 20000 UNIT IVP (10:54)
--- NOTE | 2023-07-22 11:12 | P.PN_ITS ---
Subjective 2 Subjective: getting HD Vitals/I&O/Wt Last Vital Signs Temp 97.9 F 07/22/23 09:22 Pulse 81 07/22/23 09:22 Resp 16 07/22/23 09:22 BP 130/72 07/22/23 09:22 Pulse Ox 96 07/22/23 08:00 O2 Del Method Nasal Cannula 07/22/23 08:00 O2 Flow Rate 3 07/22/23 08:00 07/21/23 07/22/23 07/22/23 22:59 06:59 14:59 Intake Total 480 / 530 530 / 1060 Balance 480 / 530 530 / 1060 Weight last 48 hrs Weight 91.626 kg Weight 87.815 kg Weight 88.3 kg Physical Exam 2 Narrative: awake , alert , no distress Data 07/22/23 04:48 07/22/23 04:48 Micro: Microbiology 07/20/23 15:48 Blood Culture - Preliminary Blood NEGATIVE TO DATE 07/20/23 15:43 Blood Culture - Preliminary Blood NEGATIVE TO DATE A&P Assessment and plan (1) End stage renal disease on dialysis: Plan 1. End-stage renal disease: On TTS schedule as outpatient, missed HD on Thursday, presented with volume overload and s/p HD yesterday , K remians high , HD today ordered kayexylate , repeat bmp in the afternoon Low K diet 2. Volume overload: Multifactorial, history of COPD and pulmonary edema 3 liver cirrhosis 4. Anemia: Will order TREY with HD 5. History of CHF Patient evaluated using audiovisual cart. Time spent 20-minutes Attestations 2 Medical Necessity Statement*: per medicine Coding Level of Care Code Acute Code for Chg Fwd Diagnoses End stage renal disease on dialysis N18.6; Z99.2
[2023-07-22 11:20] VITALS: BP 166/89; PULSE 97; RESP 16; TEMP 36.8
[2023-07-22 11:52] VITALS: BP 165/92; PULSE 92; RESP 14; TEMP 36.8; O2SAT 92
[2023-07-22 12:14] LABS: Anion Gap 18.7 (5-19); Blood Urea Nitrogen 40 mg/dL (6-20); Calcium 10.3 mg/dL (8.5-10.5); Carbon Dioxide 29 mmol/L (22-29); Chloride 94 mmol/L (98-107); Glomerular Filtration Rate 12.1 mL/min (90-130); Glucose 102 mg/dL (65-115); Osmolality Calculated 294 mOsm/kg (285-295); Potassium 4.7 mmol/L (3.5-5.1); Sodium 137 mmol/L (136-145)
--- NOTE | 2023-07-22 13:17 | PC.NURSE ---
dc pending funeral planner setting up ride for pt
== END 2023-07-22 13:56 | disposition home or self-care (01) | DRG 640 ==
LOC: ER 15:34 → ICU 15:49 → MEDSURG 07-20 21:09
PROVIDERS: Hospitalist; Admitting Provider Family Medicine; Emergency Provider Emergency Medicine; PCP Family Medicine; Visit Provider Family Medicine
DX: E87.70 Fluid overload, unspecified (principal); I50.33 Acute on chronic diastolic (congestive) heart failure; J18.9 Pneumonia, unspecified organism; N18.6 End stage renal disease; J96.21 Acute and chronic respiratory failure with hypoxia; J44.1 Chronic obstructive pulmonary disease with (acute) exacerbation; I13.2 Hypertensive heart and chronic kidney disease with heart failure and with stage 5 chronic kidney disease, or end stage renal disease; I31.39 Other pericardial effusion (noninflammatory); J44.0 Chronic obstructive pulmonary disease with (acute) lower respiratory infection; F17.210 Nicotine dependence, cigarettes, uncomplicated; Z99.2 Dependence on renal dialysis; D63.1 Anemia in chronic kidney disease; E87.5 Hyperkalemia; Z99.81 Dependence on supplemental oxygen; E78.5 Hyperlipidemia, unspecified; K74.60 Unspecified cirrhosis of liver
CPT/HCPCS: 36415; 36600; 49083; 71045; 71250; 74176; 76705; 80048; 80051; 80053; 82330; 82805; 83605; 83735; 83880; 84100; 84145; 84443; 84484; 85025; 85610; 85730; 86140; 87040; 87486; 87581; 87633; 87804; 90935; 93005; 93306; 94640; 94664; 96372; 99285; J0612; J1644; J1815; J2270; J2405; J2543; J2765; J2920; J3370; J7050; J7613; Q3014; Q4081

== ENCOUNTER 2023-07-27 23:04 | Emergency (ER) | payer MEDICARE, MEDICAID, SELFPAY ==
[2023-07-27 23:17] VITALS: BP 150/81; PULSE 84; RESP 15; TEMP 36.6; O2SAT 95
--- NOTE | 2023-07-27 23:43 | XRR_ITS ---
PROCEDURE INFORMATION: Exam: XR Chest Exam date and time: 07/27/2023 11:50 PM Age: 42 years old Clinical indication: Cough and shortness of breath; Prior surgery; Surgery date: 6+ months; Surgery type: Coronary stent; Patient HX: Cough with SOB TECHNIQUE: Imaging protocol: Radiologic exam of the chest. Views: 1 view. COMPARISON: [place] [id number] 07/20/2023 10:41 AM FINDINGS: Lungs: Patchy bibasilar retrocardiac opacities again demonstrated, slightly less pronounced since 07/19/2023 Scattered small calcified lung granulomas. Pleural spaces: Slight blunting of the left costophrenic angle may indicate trace effusion. Heart/Mediastinum: Moderate cardiomegaly. Very mild pulmonary vascular congestion without overt interstitial edema. Bones/joints: Mild deformity of the posterior right 7th rib likely due to chronic fracture. XR/XR chest 1V portable [id number] IMPRESSION: 1. Moderate cardiomegaly has increased slightly from 07/19/2023. Mild vascular congestion compatible with low-grade volume overload/CHF. Probable trace left effusion. 2. Subtle patchy bibasilar opacities due to atelectasis or pneumonitis appear mildly improved.
[2023-07-28 00:10] VITALS: BP 124/69; PULSE 79; O2SAT 98
[2023-07-28] MEDS: HYDROcodone-acetaminophen 5-325 mg Tablet 1 TAB PO (00:11)
--- NOTE | 2023-07-28 00:23 | ED_ITS ---
HPI - Back Pain/Injury General: Chief Complaint: Back Pain/Injury Stated Complaint: groin pain, sob, cough, chest pressure with cough Time Seen by Provider: 07/27/23 23:28 History of Present Illness: 42-year-old male presents to the emergen cy department with complaints of chronic back pain. He states his current pain is a 10 out of 10. He states he also has pain to his right groin as he has had a large right inguinal hernia that is not incarcerated for several months. He states he also feels short of breath and has had a nonproductive cough. His current oxygen saturation on room air is 95%. Patient states this is the same pain that he always has in his primary care provider has not provided him any pain medications or sent him to pain management. Patient does dialysis 3 times per week and was recently admitted here to the hospital for fluid volume excess, pneumonia and continued dialysis and was discharged on 07/22/23. Review of Systems General: Reports: 10 or more systems reviewed and unremarkable except in HPI and below Resp: Reports: non-productive cough Musc: Reports: back pain [facility] PFSH: Medical History Acute and chronic respiratory failure with hypoxia Patient under care of multiple providers Hypertensive urgency History of cardiovascular stress test 07/2022 at [facility] perfusion imaging probably normal, no reversible defects, small fixed defect in apical anterior wall, EF 54%, nonischemic response to stress by EKG criteria Depression Epididymitis 06/2022 Pulmonary hypertension Uses bilevel positive airway pressure (BPAP) ventilation at home Umbilical hernia History of home oxygen therapy History of coronary angiogram 11/2021 - patent stent Inguinal hernia Anxiety Chronic respiratory failure on home oxygen and bipap Low back pain Nicotine dependence, cigarettes, with other nicotine-induced disorders Generalized anxiety disorder with panic attacks ESRD on dialysis Atherosclerosis of coronary artery Stent and balloon angioplasty to proximal 1 OM branch Chronic abdominal pain COVID 05/25 Hypertensive emergency recurrent episodes Urethral stricture Abdominal ascites history of intermittent paracentesis, transudative fluid; prior work up has included negative biopsy, ceruloplasmin level normal, low iron, high ferritin, normal TIBC, negative HIV, hepatitis panel negative, JESÚS/SCL 70/double-stranded DNA antibodies negative, Alpha-fetoprotein level unremarkable, nonalcoholic by history, has hepatomegaly and splenomegaly Pulmonary embolism 09/21 CTA inconclusive for very tiny peripheral LEFT lower lobe pulmonary artery sub segmental emboli versus poor opacification. Anemia chronic kidney disease Congestive heart failure preserved ejection fraction COPD (chronic obstructive pulmonary disease) Arteriovenous fistula for hemodialysis in place, secondary Degenerative disc disease, lumbar Hypertension uncontrolled Surgical History Stented coronary artery H/O hand surgery Amputation right 2&3 fingers 2017 History of adenoidectomy Family History Other Hypertension Social History Smoking and tobacco/nicotine status: current every day tobacco/nicotine user cigarettes Packs smoked per day: 1.5 Years cigarettes smoked: 21 [ Other cigarette details: started age 20, currently 0.5ppd ] Alcohol intake: never Substance/Drug Use: never Number of children: 3 Current occupational status: disabled Do you think of yourself as: Straight/Heterosexual Physical Exam Narrative: EXAM NARRATIVE: Constitutional: the patient appears well nourished and of normal development. Vital signs as documented. No acute distress at present. Alert and oriented-to person, place, time and situation. Head, eyes, ears, nose, mouth, throat: Normocephalic, atraumatic. Pupils-equal, round, reactive to light. No scleral icterus. Normal-appearing external ears. Normal appearing nasal turbinates, no drainage. No obvious oral lesions, posterior oropharynx without erythema or exudates. Neck: Supple, trachea is midline, no lymphadenopathy, no jugular venous distension, thyromegaly, or carotid bruits. Carotid upstrokes are brisk bilaterally. Lungs: clear to auscultation to all lung cantu. Symmetrical rise and fall of chest, no obvious signs of increased work of breathing at present. Cardiac: Regular rate and rhythm, positive S1, S2. No murmurs, rubs or gallops that I can appreciate Abdomen: Soft, non-tender to palpation, normal active bowel sounds to all quadrants. No palpable masses, no organomegaly and abdominal bruits. Extremities: 2+ pulses in the upper extremities that are equal bilaterally, 2+ pulses in the lower extremities that are equal bilaterally. AV fistula to the left forearm. Moves all extremities well, sensation to all extremities are noted. Skin: Warm, dry, intact. : Right inguinal hernia, unchanged from previous Course Vital Signs: Vital signs: Vital Signs Temperature 97.8 F 07/27/23 23:17 Pulse Rate 79 07/28/23 00:46 Respiratory Rate 15 07/27/23 23:17 Blood Pressure 153/110 07/28/23 00:46 Pulse Oximetry 98 07/28/23 00:46 Oxygen Delivery Me thod Room Air 07/28/23 00:10 MDM - Back Pain/Injury Medical Decision Making Physical exam completed and documented reviewed the patient's previous hospital admission and discharge does not appear the patient was discharged on pain medication he presents today with back pain that he states is very similar to his previous he states that is currently uncontrolled and is requesting pain medication. He also states he is concerned that his pneumonia has not resolved and is requesting a chest x-ray. I have provided him a chest x-ray as he states he normally is on supplemental oxygen at home although his oxygen saturation on room air is 95% he has been placed on 2 L supplemental oxygen which is his home dose. I did provide the patient p.o. pain medication and will discharge the patient with recommended follow-up with the PCP to discuss additional evaluation and treatment for his chronic pain. Medical Records I reviewed the patient's medical records. Labs Radiology Impressions Chest X-Ray 07/27/23 23:43 IMPRESSION: 1. Moderate cardiomegaly has increased slightly from 07/19/2023. Mild vascular congestion compatible with low-grade volume overload/CHF. Probable trace left effusion. 2. Subtle patchy bibasilar opacities due to atelectasis or pneumonitis appear mildly improved. All radiology interpretation(s) finalized by discharge ED provider radiology interpretation(s): Improved from previous chest x-ray. Discharge Plan Discharge Patient Disposition: Home Clinical Impression: Chronic back pain Qualifiers: Back pain location: low back pain Back pain laterality: unspecified Sciatica presence: without sciatica Qualified Code(s): M54.50 - Low back pain, unspecified Cough Qualifiers: Cough type: chronic Qualified Code(s): R05.3 - Chronic cough Condition: Stable Prescriptions: No Action (DME) DME - BIPAP See Rx Instructions .Route .MEDSUPPLY Qty: 1 0RF Rx Instructions: Inspiratory Pressure: 16mmHg Expiratory Pressure: 8 mmHg Will need oxygen bled in to the machine to maintain sats >/= 90%. (DME) DME - Oxygen See Rx Instructions .Route .MEDSUPPLY Qty: 1 0RF Rx Instructions: Supplemental Oxygen bled into BIPAP at 2-3L to maintain oxygen sats at >/= 90%. Auryxia 210 mg iron Tablet See Rx Instructions .ROUTE .COMPLEX Rx Instructions: 420 mg (2 tabs) orally three times a day and 210mg (1 tab) with snacks aspirin 81 mg tablet,delayed release (DR/EC) 81 mg PO DAILY pantoprazole 40 mg tablet,delayed release (DR/EC) 40 mg PO DAILY isosorbide mononitrate 120 mg tablet extended release 24 hr 240 mg PO DAILY RenaPlex-D 800 mcg-12.5 mg -2,000 unit tablet 1 tab PO DAILY carvedilol 25 mg tablet 37.5 mg PO Q12H atorvastatin 40 mg tablet 40 mg PO BEDTIME amlodipine 10 mg tablet 10 mg PO DAILY hydralazine 100 mg tablet 100 mg PO Q8H prasugrel 10 mg tablet 10 mg PO DAILY ondansetron 4 mg tablet,disintegrating 4 mg translingual Q8H PRN (Reason: Nausea And Vomiting) minoxidil 2.5 mg tablet 10 mg PO TID doxycycline hyclate 100 mg tablet 100 mg PO BID 7 Days Qty: 14 0RF Discharge Orders: Discharge ED (Routine); Ordered 07/28/23 Ordered By: Heraclio Love Referrals: Mal Junior [Primary Care Provider] - Discharge Diet: Usual diet Discharge Activity: Resume usual activity Patient Instructions: Opioid Safety, Pain Management Coding Level of Care Code ED Temperature Control Inspector for Cristi Diane
[2023-07-28 00:46] VITALS: BP 153/110; PULSE 79; O2SAT 98
== END 2023-07-28 00:46 | disposition home or self-care (01) ==
PROVIDERS: Emergency Provider Internal Medicine; PCP Family Medicine
DX: G89.29 Other chronic pain (principal); M54.50 Low back pain, unspecified; R05.3 Chronic cough; Z79.82 Long term (current) use of aspirin; F17.210 Nicotine dependence, cigarettes, uncomplicated; I13.2 Hypertensive heart and chronic kidney disease with heart failure and with stage 5 chronic kidney disease, or end stage renal disease; N18.6 End stage renal disease; I50.9 Heart failure, unspecified; Z99.2 Dependence on renal dialysis; I25.10 Atherosclerotic heart disease of native coronary artery without angina pectoris; J44.9 Chronic obstructive pulmonary disease, unspecified
CPT/HCPCS: 71045; 99283

== ENCOUNTER 2023-07-29 12:24 | Day surgery (SDC) | payer MEDICARE, MEDICAID, SELFPAY ==
[2023-07-29 12:34] VITALS: BP 170/106; PULSE 82; RESP 18; TEMP 36.8; O2SAT 92
--- NOTE | 2023-07-29 12:36 | US_ITS ---
WS: [id number] Limited abdomen ultrasound. HISTORY: Ascites. Patient presents for paracentesis. Patient is experiencing chest pain with and significantly elevated blood pressure. Patient is also short of breath. No paracentesis will be performed at this time. Pat ient will be sent to the emergency department due to the acute symptomatology. IMPRESSION: Small amount of ascites is noted. Paracentesis not performed as the patient was experiencing acute ch est pain with some significantly elevated blood pressure. Patient is transported to the emergency dep artment.
--- NOTE | 2023-07-29 12:45 | PC.NURSE ---
Pt to GI lab for ultrasound guided paracentesis. Upon arrival, pt c/o generalized pain in back and groin 02/10. BP noted to be high at 203/113. Rechecked and noted 170/106. Pt c/o mild chest pain. Sao2 89% on RA. O2 at 3L via nasal cannula applied with sats increasing to 93%. Pt very agitated, stating he is having a hard time breathing. States he can't catch his breath. Complaints of nausea. Ultrasound at bedside and scanned patient abdomen for paracentesis. Due to pt c/o pain, increased BP, chest pain, and nausea, ER called. Amber, charge nurse, states patient can be brought to ER 10. Paracentesis deferred at this time until patient more stable. Pt transported via stretcher to ER 10. Pt sister and nephew at bedside. Pts coat given to nephew. Report given to JAGUAR Clark.
== END 2023-07-29 13:00 ==
LOC: GILAB 12:25
PROVIDERS: Radiology Diagnostic Radiology; PCP Family Medicine; Visit Provider Nurse Practitioner Family
DX: R18.8 Other ascites (principal)
CPT/HCPCS: 49083; 76705

== ENCOUNTER 2023-07-29 13:07 | Emergency (ER) | payer MEDICARE, MEDICAID, SELFPAY ==
--- NOTE | 2023-07-29 13:10 | ED_ITS ---
HPI - General Adult 2 General: Chief complaint: Chest Pain Stated complaint: Weakness, SOB Time Seen by Provider: 07/29/23 13:08 Source: patient Mode of arrival: ambulatory Limitations: no limitations History of Present Illness: 42-year-old male is very well-known to t he ER has a history of end-stage renal disease along with hypertension patient was getting a paracentesis outpatient GI lab and he is found to be hypertensive in the 200s. Patient also states that he is having all over body pain along with some shortness of breath. He is on oxygen at baseline. Denies any vomiting or diarrhea Associated symptoms: Reports chest pain and dyspnea; Deny headache(s), nausea, rash or vomiting Review of Systems 2 Const: Denies: fever(s), chills, body aches or change in appetite ENMT: Denies: throat pain or dental pain Card: Reports: chest pain Resp: Reports: dyspnea GI: Denies: abdominal pain, nausea, vomiting or diarrhea Musc: Reports: back pain; Denies: neck pain Skin/Breast: Denies: rash Neuro: Denies: headache(s) PFSH ED 2 PFSH: Medical History Acute and chronic respiratory failure with hypoxia Patient under care of multiple providers Hypertensive urgency History of cardiovascular stress test 07/2022 at [facility] perfusion imaging probably normal, no reversible defects, small fixed defect in apical anterior wall, EF 54%, nonischemic response to stress by EKG criteria Depression Epididymitis 06/2022 Pulmonary hypertension Uses bilevel positive airway pressure (BPAP) ventilation at home Umbilical hernia History of home oxygen therapy History of coronary angiogram 11/2021 - patent stent Inguinal hernia Anxiety Chronic respiratory failure on home oxygen and bipap Low back pain Nicotine dependence, cigarettes, with other nicotine-induced disorders Generalized anxiety disorder with panic attacks ESRD on dialysis Atherosclerosis of coronary artery Stent and balloon angioplasty to proximal 1 OM branch Chronic abdominal pain COVID 05/25 Hypertensive emergency recurrent episodes Urethral stricture Abdominal ascites history of intermittent paracentesis, transudative fluid; prior work up has included negative biopsy, ceruloplasmin level normal, low iron, high ferritin, normal TIBC, negative HIV, hepatitis panel negative, JESÚS/SCL 70/double-stranded DNA antibodies negative, Alpha-fetoprotein level unremarkable, nonalcoholic by history, has hepatomegaly and splenomegaly Pulmonary embolism 09/21 CTA inconclusive for very tiny peripheral LEFT lower lobe pulmonary artery sub segmental emboli versus poor opacification. Anemia chronic kidney disease Congestive heart failure preserved ejection fraction COPD (chronic obstructive pulmonary disease) Arteriovenous fistula for hemodialysis in place, secondary Degenerative disc disease, lumbar Hypertension uncontrolled Surgical History Stented coronary artery H/O hand surgery Amputation right 2&3 fingers 2017 History of adenoidectomy Family History Other Hypertension Social History Smoking and tobacco/nicotine status: current every day tobacco/nicotine user cigarettes Packs smoked per day: 1.5 Years cigarettes smoked: 21 [ Other cigarette details: started age 20, currently 0.5ppd ] Alcohol intake: never Substance/Drug Use: never Number of children: 3 Current occupational status: disabled Do you think of yourself as: Straight/Heterosexual Physical Exam 2 Const: COMMON NORMALS: patient oriented x3 HENMT: COMMON NORMALS: normocephalic and atraumatic HEAD & SCALP: n ormocephalic and atraumatic Eye: COMMON NORMALS: Equal, round and reactive pupils present and EOMs intact bilaterally PUPIL: Yes Equal, round and reactive pupils present Neck/C-Spine: COMMON NORMALS: full ROM and supple Chest: COMMONS NORMALS: normal inspection of the chest and normal palpation of entire chest wall Resp: COMMON NORMALS: normal respiratory effort, No retractions, No use of accessory muscles and clear to auscultation bilaterally AUSCULTATION: clear to auscultation bilaterally Cardio: COMMON NORMALS: regular rate, regular rhythm and No murmurs present (Cardio) RATE: regular rate RHYTHM: regular rhythm GI: COMMON NORMALS: Normal to inspection, nondistended, normoactive bowel sounds present, Soft to palpation, non-tender and no masses PALPATION: Yes Soft to palpation Extremity: COMMON NORMALS: normal to inspection and full ROM Neuro: COMMON NORMALS: patient oriented x3, moves all extremities and no focal motor deficits Psych: COMMON NORMALS: mental status grossly normal, Normal thought process present and cooperative THOUGHT PROCESS: Normal thought process present Skin: COMMON NORMALS: no rashes or lesions noted and no wounds GENERAL SKIN EXAM: no rashes or lesions noted Course 2 Vital Signs: Vital signs: Vital Signs Temperature 98.1 F 07/29/23 13:15 Pulse Rate 87 07/29/23 15:00 Respiratory Rate 13 07/29/23 15:00 Blood Pressure 215/110 07/29/23 15:00 Pulse Oximetry 90 07/29/23 15:00 Oxygen Delivery Me thod Nasal Cannula 07/29/23 13:15 Oxygen Flow Rate 3.5 07/29/23 13:15 MDM - General Adult Medical Decision Making Patient presents for chest pain is chronic in nature troponin here is at his baseline he has chronic hypertension as well he is stable for discharge scheduled for dialysis tomorrow return if worsening. Medical Records I reviewed the patient's medical records. Lab Data I reviewed the patient's lab results. 07/29/23 14:06 07/29/23 14:06 Laboratory Results WBC 10.90 10^3/uL (3.29-11.43) 07/29/23 14:06 RBC 3.49 10^6/uL (3.85-5.65) L 07/29/23 14:06 Hgb 10.10 g/dL (11.27-16.99) L 07/29/23 14:06 Hct 31.4 % (37-53) L 07/29/23 14:06 MCV 90.0 fl (82-101) 07/29/23 14:06 MCH 28.9 pg (27-33) 07/29/23 14:06 MCHC 32.2 g/dL (30-55) 07/29/23 14:06 RDW 23.8 % (12.1-15.1) H 07/29/23 14:06 Plt Count 201 10^3/cmm (157-399) 07/29/23 14:06 MPV 9.4 fL (7.4-10.4) 07/29/23 14:06 Neut % (Auto) 86.6 % 07/29/23 14:06 Lymph % (Auto) 2.2 % 07/29/23 14:06 [place] % (Auto) 6.1 % 07/29/23 14:06 Eos % (Auto) 0.0 % 07/29/23 14:06 Baso % (Auto) 0.1 % 07/29/23 14:06 Neut # (Auto) 9.44 10^3/uL (1.8-7.7) H 07/29/23 14:06 Lymph # (Auto) 0.2 10^3/uL (0.8-4.8) L 07/29/23 14:06 [place] # (Auto) 0.7 10^3/uL (0.2-0.9) 07/29/23 14:06 Eos # (Auto) 0.0 10^3/uL (0.0-0.8) 07/29/23 14:06 Baso # (Auto) 0.0 10^3/uL (0.0-0.1) 07/29/23 14:06 Nucleated RBC % (auto) 0.8 % 07/29/23 14:06 Nucleated RBCs # 0.1 /100WBC 07/29/23 14:06 Sodium 133 mmol/L (136-145) L 07/29/23 14:06 Potassium 6.0 mmol/L (3.5-5.1) H 07/29/23 14:06 Chloride 91 mmol/L (98-107) L 07/29/23 14:06 Carbon Dioxide 25 mmol/L (22-29) 07/29/23 14:06 Anion Gap 23.0 (5-19) H 07/29/23 14:06 BUN 91 mg/dL (6-20) H* D 07/29/23 14:06 Creatinine 8.8 mg/dL (0.7-1.2) H* 07/29/23 14:06 GFR Calculation 6.7 mL/min (90-130) L 07/29/23 14:06 Glucose 99 mg/dL (65-115) 07/29/23 14:06 Calculated Osmolality 304 mOsm/kg (285-295) H 07/29/23 14:06 Calcium 10.0 mg/dL (8.5-10.5) 07/29/23 14:06 Total Bilirubin 0.4 mg/dL (0.15-1.2) 07/29/23 14:06 AST 11 U/L (0-40) 07/29/23 14:06 ALT 9 U/L (0-41) 07/29/23 14:06 Alkaline Phosphatase 107 U/L (40-130) 07/29/23 14:06 Troponin T Baseline 72 ng/L (0-15) H 07/29/23 14:06 Total Protein 7.2 g/dL (6.6-8.7) 07/29/23 14:06 Albumin 4.0 g/dL (3.5-5.2) 07/29/23 14:06 Globulin 3.2 g/dL (1.3-4.6) 07/29/23 14:06 All radiology interpretation(s) finalized by discharge EKG Data EKG 1: I personally reviewed and interpreted this EKG as follows: EKG interpretation date: 07/29/23 EKG interpretation time: 13:13 Interpretation: nsr hr [address] or t wave abnormalities qrs 120 qtc 402 Discharge Plan Discharge Patient Disposition: Home Clinical Impression: Chest pain, Hypertension Prescriptions: No Action (DME) DME - BIPAP See Rx Instructions .Route .MEDSUPPLY Qty: 1 0RF Rx Instructions: Inspiratory Pressure: 16mmHg Expiratory Pressure: 8 mmHg Will need oxygen bled in to the machine to maintain sats >/= 90%. (DME) DME - Oxygen See Rx Instructions .Route .MEDSUPPLY Qty: 1 0RF Rx Instructions: Supplemental Oxygen bled into BIPAP at 2-3L to maintain oxygen sats at >/= 90%. Auryxia 210 mg iron Tablet See Rx Instructions .ROUTE .COMPLEX Rx Instructions: 420 mg (2 tabs) orally three times a day and 210mg (1 tab) with snacks aspirin 81 mg tablet,delayed release (DR/EC) 81 mg PO QAM pantoprazole 40 mg tablet,delayed release (DR/EC) 40 mg PO BEDTIME isosorbide mononitrate 120 mg tablet extended release 24 hr 240 mg PO QAM RenaPlex-D 800 mcg-12.5 mg -2,000 unit tablet 1 tab PO QAM carvedilol 25 mg tablet 37.5 mg PO Q12H atorvastatin 40 mg tablet 40 mg PO BEDTIME amlodipine 10 mg tablet 10 mg PO QAM hydralazine 100 mg tablet 100 mg PO Q8H prasugrel 10 mg tablet 10 mg PO QAM ondansetron 4 mg tablet,disintegrating 4 mg translingual Q8H PRN (Reason: Nausea And Vomiting) minoxidil 2.5 mg tablet 10 mg PO TID prednisone 20 mg tablet 20 mg PO BID Rx Instructions: for 5 days (rx filled 07/22/23) albuterol sulfate 90 mcg/actuation Hfa Aerosol Inhaler 2 puff INHALATION QID PRN (Reason: Shortness Of Breath) doxycycline hyclate 100 mg tablet 100 mg PO BID Rx Instructions: for 7 days (rx filled 07/22/23) Discharge Orders: Discharge ED (Routine); Ordered 07/29/23 Ordered By: Dayana Nunez Referrals: Mal Junior [Primary Care Provider] - Discharge Diet: Advance as tolerated Discharge Activity: Resume usual activity Patient Instructions: Hypertension (ED) Coding Level of Care Code ED Attending Radiologist for Cristi Diane
[2023-07-29 13:15] VITALS: BP 173/98; PULSE 95; RESP 16; TEMP 36.7; O2SAT 97
--- NOTE | 2023-07-29 13:21 | ECG_ITS ---
[facility] Test Date: 2023-07-29 Pat Name: Mal Gibbs Department: Room: Gender: Male Vocal Artist: : 1980 Requested By: Dayana Nunez Order Number: [id number] Mohini MD: Ruba Hussein M.D. Measurements Intervals [place] Rate: 88 P: 41 TX: 218 QRS: 90 QRSD: 120 T: 90 QT: 357 QTc: 432 Interpretive Statements Normal sinus rhythm with a first-degree AV block. Occasional PVCs. POSSIBLE LEFT ATRIAL ENLARGEMENT [-0.1mV P-WAVE IN V1/V2] POSSIBLE ANTERIOR MYOCARDIAL INFARCTION , OF INDETERMINATE AGE [30 ms Q WAVE IN V3/V4, OR R < 0.2 mV IN V4] Compared to ECG 07/19/2023 22:05:11 Myocardial infarct finding now present First degree AV block no longer present Intraventricular conduction delay no longer present Electronically Signed On 07-29-2023 23:56:05 CDT by Ruba Hussein M.D. [email or web address]
[2023-07-29] MEDS: ondansetron 2 mg/ML SDV 2 mL 4 MG IVP (13:24)
[2023-07-29] MEDS: HYDROmorphone 1 mg/mL INJ 1 mL IVP (13:24)
[2023-07-29 13:30] VITALS: BP 190/117; PULSE 88; RESP 17; O2SAT 96
--- NOTE | 2023-07-29 13:46 | PC.PHAR ---
pts sister lukas [phone] verified pts medications-lukas states the pts clonidine 0.2mg/24 hour patch was dced ext shows last filled 07/17/23 84d/s-pts sister states the pt has 2 days left of prednisone 20mg bid filled 07/22/23 5d/s and doxycycline hyclate 100mg bid filled 07/22/23 7d/s-pts sister states the pt takes auryxia 2 tabs tid and one tab with snack ext shows last filled 07/02/23 30d/s 3 tabs tid-notes are made in the pharmacy comments
--- NOTE | 2023-07-29 13:57 | XR_ITS ---
WS: [id number] Exam: XR chest 1V portable [id number] Date/Time of Exam: 07/29/2023 1:57 PM Reason For Exam: sob Comparison 07/27/2023. The lungs are fully expanded. Mild plaque atelectasis along the LEFT heart. No consolidated infiltrat es. The heart is enlarged but unchanged in size. No significant pleural effusion. Bony structures are intact. The mediastinum is normal in contour. IMPRESSION: 1. No acute cardiopulmonary finding.
[2023-07-29 14:21] LABS: Basophils % 0.1 %; Hematocrit 31.4 % (37-53); Lymphocytes # 0.2 10^3/uL (0.8-4.8); Lymphocytes % 2.2 %; Mean Corpuscular HGB Conc 32.2 g/dL (30-55); Mean Corpuscular Hemoglobin 28.9 pg (27-33); Mean Platelet Volume 9.4 fL (7.4-10.4); Monocytes # 0.7 10^3/uL (0.2-0.9); Monocytes % 6.1 %; Neutrophils # 9.44 10^3/uL (1.8-7.7); Neutrophils % 86.6 %; Nucleated Red Blood Cells # 0.1 /100WBC; Nucleated Red Blood Cells % 0.8 %; Platelet Count 201 10^3/cmm (157-399); Red Blood Count 3.49 10^6/uL (3.85-5.65); Red Cell Distribution Width 23.8 % (12.1-15.1)
[2023-07-29 14:30] VITALS: BP 183/106; PULSE 81; RESP 19; O2SAT 92
[2023-07-29 14:31] LABS: Troponin(5th) Baseline 72 ng/L (0-15)
[2023-07-29 14:43] LABS: Alanine Aminotransferase 9 U/L (0-41); Alkaline Phosphatase 107 U/L (40-130); Aspartate Amino Transferase 11 U/L (0-40); Carbon Dioxide 25 mmol/L (22-29); Chloride 91 mmol/L (98-107); Creatinine Clr Calc Pharmacy 13.8662; Globulin 3.2 g/dL (1.3-4.6); Glomerular Filtration Rate 6.7 mL/min (90-130); Glucose 99 mg/dL (65-115); Osmolality Calculated 304 mOsm/kg (285-295); Sodium 133 mmol/L (136-145); Total Bilirubin 0.4 mg/dL (0.15-1.2); Total Protein 7.2 g/dL (6.6-8.7)
[2023-07-29 14:51] LABS: Blood Urea Nitrogen 91 mg/dL (6-20)
[2023-07-29 15:00] VITALS: BP 215/110; PULSE 87; RESP 13; O2SAT 90
[2023-07-29] MEDS: HYDROcodone-acetaminophen 7.5-325 mg Tablet 1 TAB PO (15:01)
[2023-07-29 15:48] LABS: NT Pro B Type Natriuretic Pept 92691 pg/mL (0-125)
== END 2023-07-29 15:22 | disposition home or self-care (01) ==
PROVIDERS: Emergency Provider Emergency Medicine; PCP Family Medicine
DX: R07.9 Chest pain, unspecified (principal); Z79.82 Long term (current) use of aspirin; F17.210 Nicotine dependence, cigarettes, uncomplicated; I13.2 Hypertensive heart and chronic kidney disease with heart failure and with stage 5 chronic kidney disease, or end stage renal disease; N18.6 End stage renal disease; I50.9 Heart failure, unspecified; Z99.2 Dependence on renal dialysis; I25.10 Atherosclerotic heart disease of native coronary artery without angina pectoris; J44.9 Chronic obstructive pulmonary disease, unspecified; Z99.81 Dependence on supplemental oxygen
CPT/HCPCS: 36415; 71045; 76705; 80053; 83880; 84484; 85025; 93005; 96374; 96375; 99285; J1170; J2405

== ENCOUNTER 2023-08-03 01:12 | Emergency (ER) | payer MEDICARE, MEDICAID, SELFPAY ==
[2023-08-03 01:25] VITALS: BP 141/80; PULSE 81; RESP 18; TEMP 36.5; O2SAT 92; BMI 27.0
[2023-08-03 02:03] VITALS: BP 144/84; PULSE 79; RESP 22; O2SAT 93
--- NOTE | 2023-08-03 02:08 | XRR_ITS ---
PROCEDURE INFORMATION: Exam: XR Chest Exam date and time: 08/03/2023 2:15 AM Age: 42 years old Clinical indication: Shortness of breath; Prior surgery; Surgery date: 6+ months; Surgery type: Coronary stents; Patient HX: C/O SOB TECHNIQUE: Imaging protocol: Radiologic exam of the chest. Views: 1 view. COMPARISON: CR XR chest 1V portable [id number] 07/29/2023 2:26 PM FINDINGS: Lungs: Patchy hazy pulmonary opacities which may be seen with pulmonary edema. Pleural spaces: Unremarkable. No pleural effusion. No pneumothorax. Heart/Mediastinum: Cardiomegaly. Bones/joints: Chronic right rib fractures. XR/XR chest 1V portable [id number] IMPRESSION: Patchy hazy pulmonary opacities which may be seen with pulmonary edema. Differential includes pneumonia
[2023-08-03 02:13] LABS: Basophils % 0.4 %; Eosinophils # 0.4 10^3/uL (0.0-0.8); Eosinophils % 4.9 %; Hematocrit 29.8 % (37-53); Lymphocytes # 0.6 10^3/uL (0.8-4.8); Mean Corpuscular HGB Conc 32.9 g/dL (30-55); Mean Corpuscular Hemoglobin 29.2 pg (27-33); Mean Corpuscular Volume 88.7 fl (82-101); Mean Platelet Volume 9.8 fL (7.4-10.4); Monocytes # 0.7 10^3/uL (0.2-0.9); Monocytes % 9.1 %; Neutrophils # 5.62 10^3/uL (1.8-7.7); Neutrophils % 77.2 %; Nucleated Red Blood Cells % 0 %; Platelet Count 158 10^3/cmm (157-399); Red Blood Count 3.36 10^6/uL (3.85-5.65); Red Cell Distribution Width 23.1 % (12.1-15.1); White Blood Count 7.28 10^3/uL (3.29-11.43)
[2023-08-03 02:14] VITALS: RESP 14; O2SAT 94
[2023-08-03] MEDS: ondansetron 4 MG Tablet PO (02:14)
[2023-08-03] MEDS: HYDROmorphone 1 mg/mL INJ 1 mL IM (02:14)
[2023-08-03 02:24] LABS: Alanine Aminotransferase 7 U/L (0-41); Albumin Level 3.4 g/dL (3.5-5.2); Alkaline Phosphatase 91 U/L (40-130); Anion Gap 20.9 (5-19); Aspartate Amino Transferase 7 U/L (0-40); Blood Urea Nitrogen 64 mg/dL (6-20); C Reactive Protein 77.6 mg/L (0.0-4.9); Calcium 9.8 mg/dL (8.5-10.5); Carbon Dioxide 27 mmol/L (22-29); Chloride 89 mmol/L (98-107); Creatinine Clr Calc Pharmacy 15.1593; Globulin 3.3 g/dL (1.3-4.6); Glomerular Filtration Rate 7.7 mL/min (90-130); Glucose 93 mg/dL (65-115); Magnesium 1.9 mg/dL (1.7-2.3); Osmolality Calculated 290 mOsm/kg (285-295); Potassium 5.9 mmol/L (3.5-5.1); Sodium 131 mmol/L (136-145); Total Bilirubin 0.4 mg/dL (0.15-1.2); Total Protein 6.7 g/dL (6.6-8.7)
[2023-08-03 02:27] LABS: Phosphorus 9.2 mg/dL (2.5-4.5)
[2023-08-03 02:43] VITALS: BP 131/67; PULSE 77; RESP 16; O2SAT 91
--- NOTE | 2023-08-03 02:44 | ED_ITS ---
HPI - Abdominal Pain 2 General: Chief Complaint: Abdominal Pain Stated Complaint: ABD Pain\Back Pain Time Seen by Provider: 08/03/23 01:56 History of Present Illness: 42-year-old male well-known to the emerg ency department service. He presents this morning complaining of abdominal, and right-sided groin pain as well as back pain. He had a recent admission for hypoxic respiratory failure with fluid overload due to missed dialysis. He last received dialysis on Thursday as scheduled with no complications. The patient also has ascites requiring frequent paracentesis. He notes that during his hospitalization last week, there did not appear to be enough fluid to aspirate. He denies fever. He has had a bit of a cough. Associated Symptoms: Denies chills, diarrhea, fever(s) and vomiting Review of Systems 2 Const: Denies: fever(s), chills, body aches or change in appetite ENMT: Denies: throat pain or dental pain Resp: Reports: dyspnea GI: Denies: vomiting or diarrhea Musc: Reports: back pain; Denies: neck pain Skin/Breast: Denies: rash Neuro: Denies: headache(s) PFSH ED 2 PFSH: Medical History Acute and chronic respiratory failure with hypoxia Patient under care of multiple providers Hypertensive urgency History of cardiovascular stress test 07/2022 at [facility] perfusion imaging probably normal, no reversible defects, small fixed defect in apical anterior wall, EF 54%, nonischemic response to stress by EKG criteria Depression Epididymitis 06/2022 Pulmonary hypertension Uses bilevel positive airway pressure (BPAP) ventilation at home Umbilical hernia History of home oxygen therapy History of coronary angiogram 11/2021 - patent stent Inguinal hernia Anxiety Chronic respiratory failure on home oxygen and bipap Low back pain Nicotine dependence, cigarettes, with other nicotine-induced disorders Generalized anxiety disorder with panic attacks ESRD on dialysis Atherosclerosis of coronary artery Stent and balloon angioplasty to proximal 1 OM branch Chronic abdominal pain COVID 05/25 Hypertensive emergency recurrent episodes Urethral stricture Abdominal ascites history of intermittent paracentesis, transudative fluid; prior work up has included negative biopsy, ceruloplasmin level normal, low iron, high ferritin, normal TIBC, negative HIV, hepatitis panel negative, JESÚS/SCL 70/double-stranded DNA antibodies negative, Alpha-fetoprotein level unremarkable, nonalcoholic by history, has hepatomegaly and splenomegaly Pulmonary embolism 09/21 CTA inconclusive for very tiny peripheral LEFT lower lobe pulmonary artery sub segmental emboli versus poor opacification. Anemia chronic kidney disease Congestive heart failure preserved ejection fraction COPD (chronic obstructive pulmonary disease) Arteriovenous fistula for hemodialysis in place, secondary Degenerative disc disease, lumbar Hypertension uncontrolled Surgical History Stented coronary artery H/O hand surgery Amputation right 2&3 fingers 2017 History of adenoidectomy Family History Other Hypertension Social History Smoking and tobacco/nicotine status: current every day tobacco/nicotine user cigarettes Packs smoked per day: 1.5 Years cigarettes smoked: 21 [ Other cigarette details: started age 20, currently 0.5ppd ] Alcohol intake: never Substance/Drug Use: never Number of children: 3 Current occupational status: disabled Do you think of yourself as: Straight/Heterosexual Physical Exam 2 Const: COMMON NORMALS: no acute distress GENERAL APPEARANCE: cooperative and frail appearing; not well kempt HENMT: COMMON NORMALS: normocephalic, atraumatic and Normal external nose present HEAD & SCALP: normocephalic and atraumatic FACE & SINUS: normal facial exam and face symmetric NOSE: Normal external nose present Eye: COMMON NORMALS: Equal, round and reactive pupils present and EOMs intact bilaterally PUPIL: Yes Equal, round and reactive pupils present Neck/C-Spine: GENERAL: Yes trachea midline Chest: CHEST: Yes Symmetrical chest wall rise Resp: COMMON NORMALS: normal respiratory effort, No retractions, No use of accessory muscles and clear to auscultation bilaterally AUSCULTATION: clear to auscultation bilaterally Cardio: COMMON NORMALS: regular rate and regular rhythm RATE: regular rate RHYTHM: regular rhythm GI: INSPECTION: Yes Abdominal wall edema, Yes Anasarca and Yes abdominal distension PALPATION: Yes Firmness to palpation present (GI) and No Guarding due to palpation present (GI) PERCUSSION: dullness to percussion : PENIS: normal penis SCROTUM: No ecchymosis and Yes scrotal swelling Scrotal swelling laterality: right Neuro: BUCK COMA SCALE: document GCS findings Buck coma scale eye opening: Spontaneous Buck coma scale verbal response: Orientated Buck coma scale motor response: Obey commands [place] coma scale total score: 15 S ENSORY EXAM: Yes extremities (intact) Psych: COMMON NORMALS: speech normal APPEARANCE: No well kempt SPEECH: Y es normal speech Skin: COMMON NORMALS: no rashes or lesions noted GENERAL SKIN EXAM: no rashes or lesions noted Course 2 Vital Signs: Vital signs: Vital Signs Temperature 97.7 F 08/03/23 01:25 Pulse Rate 81 08/03/23 03:30 Respiratory Rate 20 H 08/03/23 03:30 Blood Pressure 158/104 08/03/23 03:30 Pulse Oximetry 96 08/03/23 03:30 Oxygen Delivery Me thod Room Air 08/03/23 02:03 MDM - Abdominal Pain Medical Decision Making Potassium is mildly elevated which is not abnormal for this patient. Creatinine is 7.8. Hemoglobin is stable. No leukocytosis. Pain is improved after morphine here. He is given Zofran. He is scheduled for dialysis tomorrow. Lab Data 08/03/23 01:37 08/03/23 01:37 Labs/Radiology: Radiology Impressions Chest X-Ray 08/03/23 02:08 IMPRESSION: Patchy hazy pulmonary opacities which may be seen with pulmonary edema. Differential includes pneumonia Laboratory Results WBC 7.28 10^3/uL (3.29-11.43) 08/03/23 01:37 RBC 3.36 10^6/uL (3.85-5.65) L 08/03/23 01:37 Hgb 9.80 g/dL (11.27-16.99) L 08/03/23 01:37 Hct 29.8 % (37-53) L 08/03/23 01:37 MCV 88.7 fl (82-101) 08/03/23 01:37 MCH 29.2 pg (27-33) 08/03/23 01:37 MCHC 32.9 g/dL (30-55) 08/03/23 01:37 RDW 23.1 % (12.1-15.1) H 08/03/23 01:37 Plt Count 158 10^3/cmm (157-399) 08/03/23 01:37 MPV 9.8 fL (7.4-10.4) 08/03/23 01:37 Neut % (Auto) 77.2 % 08/03/23 01:37 Lymph % (Auto) 8.0 % 08/03/23 01:37 [place] % (Auto) 9.1 % 08/03/23 01:37 Eos % (Auto) 4.9 % 08/03/23 01:37 Baso % (Auto) 0.4 % 08/03/23 01:37 Neut # (Auto) 5.62 10^3/uL (1.8-7.7) 08/03/23 01:37 Lymph # (Auto) 0.6 10^3/uL (0.8-4.8) L 08/03/23 01:37 [place] # (Auto) 0.7 10^3/uL (0.2-0.9) 08/03/23 01:37 Eos # (Auto) 0.4 10^3/uL (0.0-0.8) 08/03/23 01:37 Baso # (Auto) 0.0 10^3/uL (0.0-0.1) 08/03/23 01:37 Nucleated RBC % (auto) 0 % 08/03/23 01:37 Nucleated RBCs # 0.0 /100WBC 08/03/23 01:37 Sodium 131 mmol/L (136-145) L 08/03/23 01:37 Potassium 5.9 mmol/L (3.5-5.1) H 08/03/23 01:37 Chloride 89 mmol/L (98-107) L 08/03/23 01:37 Carbon Dioxide 27 mmol/L (22-29) 08/03/23 01:37 Anion Gap 20.9 (5-19) H 08/03/23 01:37 BUN 64 mg/dL (6-20) H 08/03/23 01:37 Creatinine 7.8 mg/dL (0.7-1.2) H* 08/03/23 01:37 GFR Calculation 7.7 mL/min (90-130) L 08/03/23 01:37 Glucose 93 mg/dL (65-115) 08/03/23 01:37 Calculated Osmolality 290 mOsm/kg (285-295) 08/03/23 01:37 Calcium 9.8 mg/dL (8.5-10.5) 08/03/23 01:37 Phosphorus 9.2 mg/dL (2.5-4.5) H* 08/03/23 01:37 Magnesium 1.9 mg/dL (1.7-2.3) 08/03/23 01:37 Total Bilirubin 0.4 mg/dL (0.15-1.2) 08/03/23 01:37 AST 7 U/L (0-40) 08/03/23 01:37 ALT 7 U/L (0-41) 08/03/23 01:37 Alkaline Phosphatase 91 U/L (40-130) 08/03/23 01:37 C-Reactive Protein 77.6 mg/L (0.0-4.9) H 08/03/23 01:37 Total Protein 6.7 g/dL (6.6-8.7) 08/03/23 01:37 Albumin 3.4 g/dL (3.5-5.2) L 08/03/23 01:37 Globulin 3.3 g/dL (1.3-4.6) 08/03/23 01:37 XR interpretation done by ED provider, pending radiology final review Discharge Plan Discharge Patient Disposition: Home Clinical Impression: End-stage renal disease on hemodialysis, Low back pain, Hernia, inguinal, right Condition: Stable Prescriptions: No Action (DME) DME - BIPAP See Rx Instructions .Route .MEDSUPPLY Qty: 1 0RF Rx Instructions: Inspiratory Pressure: 16mmHg Expiratory Pressure: 8 mmHg Will need oxygen bled in to the machine to maintain sats >/= 90%. (DME) DME - Oxygen See Rx Instructions .Route .MEDSUPPLY Qty: 1 0RF Rx Instructions: Supplemental Oxygen bled into BIPAP at 2-3L to maintain oxygen sats at >/= 90%. Auryxia 210 mg iron Tablet See Rx Instructions .ROUTE .COMPLEX Rx Instructions: 420 mg (2 tabs) orally three times a day and 210mg (1 tab) with snacks aspirin 81 mg tablet,delayed release (DR/EC) 81 mg PO QAM pantoprazole 40 mg tablet,delayed release (DR/EC) 40 mg PO BEDTIME isosorbide mononitrate 120 mg tablet extended release 24 hr 240 mg PO QAM RenaPlex-D 800 mcg-12.5 mg -2,000 unit tablet 1 tab PO QAM carvedilol 25 mg tablet 37.5 mg PO Q12H atorvastatin 40 mg tablet 40 mg PO BEDTIME amlodipine 10 mg tablet 10 mg PO QAM hydralazine 100 mg tablet 100 mg PO Q8H prasugrel 10 mg tablet 10 mg PO QAM ondansetron 4 mg tablet,disintegrating 4 mg translingual Q8H PRN (Reason: Nausea And Vomiting) minoxidil 2.5 mg tablet 10 mg PO TID prednisone 20 mg tablet 20 mg PO BID Rx Instructions: for 5 days (rx filled 07/22/23) albuterol sulfate 90 mcg/actuation Hfa Aerosol Inhaler 2 puff INHALATION QID PRN (Reason: Shortness Of Breath) doxycycline hyclate 100 mg tablet 100 mg PO BID Rx Instructions: for 7 days (rx filled 07/22/23) Discharge Orders: Discharge ED (Routine); Ordered 08/03/23 Ordered By: Jose Ward Referrals: Mal Junior [Primary Care Provider] - 1-3 days Patient Instructions: Inguinal Hernia (ED), Back Pain (ED), Opioid Safety, Pain Management Activity Restrictions/Additional Instructions: We currently do not have dialysis availability at this facility. You are encouraged to attend dialysis tomorrow as scheduled. See your doctor this week, as repeated paracentesis of your belly fluid may be indicated which could help your symptoms. Return for fever greater than 100, vomiting liquids or medications, other concerning symptoms. Coding Level of Care Code ED Animal Control Specialist for Cristi Diane
[2023-08-03 03:30] VITALS: BP 158/104; PULSE 81; RESP 20; O2SAT 96
== END 2023-08-03 03:39 | disposition home or self-care (01) ==
PROVIDERS: Emergency Provider Emergency Medicine; PCP Family Medicine
DX: M54.50 Low back pain, unspecified (principal); K40.90 Unilateral inguinal hernia, without obstruction or gangrene, not specified as recurrent; I13.2 Hypertensive heart and chronic kidney disease with heart failure and with stage 5 chronic kidney disease, or end stage renal disease; N18.6 End stage renal disease; I50.9 Heart failure, unspecified; Z99.2 Dependence on renal dialysis; Z79.82 Long term (current) use of aspirin; F17.210 Nicotine dependence, cigarettes, uncomplicated; J44.9 Chronic obstructive pulmonary disease, unspecified
CPT/HCPCS: 71045; 80053; 83735; 84100; 85025; 86140; 96372; 99284; J1170; Q0162

== ENCOUNTER → 2023-08-12 12:37 | Day surgery (SDC) | payer MEDICARE, MEDICAID, SELFPAY ==
--- NOTE | 2023-08-12 12:59 | US_ITS ---
WS: [id number] ULTRASOUND-GUIDED PARACENTESIS CLINICAL INFORMATION: CIRRHOSIS OF LIVER WITHOUT ASCITES Procedure Informed consent: The risks, benefits, and alternatives of the procedure were discussed with the mariah ent. Verbal and written consent was obtained. Timeout: A timeout was performed to confirm the correct patient, procedure, and site. Preparation: A suitable skin site was identified. The patient was prepped and draped in usual sterile fashion. Lidocaine 1% was used for local anesthesia. Catheter: 4 Irish One-step Yueh catheter. Side: LEFT lower quadrant. Fluid Volume: 6200 ml Color: Bloody serous DISPOSITION: Discarded safely. Complications: None. Patient disposition: Discharged from the department in stable condition. IMPRESSION: Uncomplicated ultrasound-guided paracentesis. Removal of 6200 cc
[2023-08-12 13:05] VITALS: BP 117/60; PULSE 72; RESP 14; TEMP 36.8; O2SAT 93
[2023-08-12 13:51] VITALS: BMI 27.0
[2023-08-12] MEDS: albumin 50 G/200 ML BAG 60 G IV (14:23)
[2023-08-12 15:44] LABS: Albumin Body Fluid 2.3 g/dL; Total Protein Body Fluid 3.9 g/dL
== END ==
LOC: GILAB 12:37
PROVIDERS: Radiology Neuroradiology; PCP Family Medicine; Visit Provider Nurse Practitioner Family
PROC: (CPT 49082; principal; 2023-08-12 13:30)
DX: K74.60 Unspecified cirrhosis of liver (principal)
CPT/HCPCS: 49083; 82042; 84157; 87070; 87075; 87205; 96365; P9046

== ENCOUNTER 2023-08-17 01:24 | Emergency (ER) | payer MEDICARE, MEDICAID, SELFPAY ==
[2023-08-17 01:30] VITALS: BP 148/57; PULSE 79; RESP 18; TEMP 37; O2SAT 94
--- NOTE | 2023-08-17 02:08 | ED_ITS ---
HPI - Abdominal Pain General: Chief Complaint: Abdominal Pain Stated Complaint: Groin Pain Time Seen by Provider: 08/17/23 01:52 History of Present Illness: 42-year-old male who complains of right- sided groin pain, and bilateral lower extremity pain. He has a history of a very large inguinal hernia on the right with testicular pain that is chronic. He is currently anticoagulated, and has to wait to come off of anticoagulants prior to surgery. He has end-stage renal disease, and is on dialysis. His last dialysis was Thursday. He is due again tomorrow. He had paracentesis last on Thursday. He denies fever. He denies significant shortness of breath. He has had nausea. Associated Symptoms: Reports nausea; Denies fever(s) and vomiting Review of Systems Const: Denies: fever(s) GI: Reports: abdominal pain and nausea; Denies: vomiting PFS ED PFSH: Medical History Acute and chronic respiratory failure with hypoxia Patient under care of multiple providers Hypertensive urgency History of cardiovascular stress test 07/2022 at [facility] perfusion imaging probably normal, no reversible defects, small fixed defect in apical anterior wall, EF 54%, nonischemic response to stress by EKG criteria Depression Epididymitis 06/2022 Pulmonary hypertension Uses bilevel positive airway pressure (BPAP) ventilation at home Umbilical hernia History of home oxygen therapy History of coronary angiogram 11/2021 - patent stent Inguinal hernia Anxiety Chronic respiratory failure on home oxygen and bipap Low back pain Nicotine dependence, cigarettes, with other nicotine-induced disorders Generalized anxiety disorder with panic attacks ESRD on dialysis Atherosclerosis of coronary artery Stent and balloon angioplasty to proximal 1 OM branch Chronic abdominal pain COVID 05/25 Hypertensive emergency recurrent episodes Urethral stricture Abdominal ascites history of intermittent paracentesis, transudative fluid; prior work up has included negative biopsy, ceruloplasmin level normal, low iron, high ferritin, normal TIBC, negative HIV, hepatitis panel negative, JESÚS/SCL 70/double-stranded DNA antibodies negative, Alpha-fetoprotein level unremarkable, nonalcoholic by history, has hepatomegaly and splenomegaly Pulmonary embolism 09/21 CTA inconclusive for very tiny peripheral LEFT lower lobe pulmonary artery sub segmental emboli versus poor opacification. Anemia chronic kidney disease Congestive heart failure preserved ejection fraction COPD (chronic obstructive pulmonary disease) Arteriovenous fistula for hemodialysis in place, secondary Degenerative disc disease, lumbar Hypertension uncontrolled Surgical History Stented coronary artery H/O hand surgery Amputation right 2&3 fingers 2017 History of adenoidectomy Family History Other Hypertension Social History Smoking and tobacco/nicotine status: current every day tobacco/nicotine user cigarettes Packs smoked per day: 1.5 Years cigarettes smoked: 21 [ Other cigarette details: started age 20, currently 0.5ppd ] Alcohol intake: never Substance/Drug Use: never Number of children: 3 Current occupational status: disabled Do you think of yourself as: Straight/Heterosexual Physical Exam Const: COMMON NORMALS: no acute distress GENERAL APPEARANCE: cooperative HENMT: COMMON NORMALS: normocephalic and atraumatic HEAD & SCALP: normocephalic and atraumatic Chest: CHEST: Yes Symmetrical chest wall rise Resp: COMMON NORMALS: normal respiratory effort, No use of accessory muscles and clear to auscultation bilaterally AUSCULTATION: clear to auscultation bilaterally Cardio: COMMON NORMALS: regular rate and regular rhythm RATE: regular rate RHYTHM: regular rhythm GI: INSPECTION: Yes abdominal distension PALPATION: Yes Firmness to palpat ion present (GI) : OTHER: Large right inguinal hernia with hydrocele. Tender to touch. No redness, or warmth. Course Vital Signs: Vital signs: Vital Signs Temperature 98.6 F 08/17/23 01:30 Pulse Rate 86 08/17/23 03:42 Respiratory Rate 18 08/17/23 03:42 Blood Pressure 152/87 08/17/23 03:42 Pulse Oximetry 97 08/17/23 03:42 Oxygen Delivery Me thod Room Air 08/17/23 01:30 MDM - Abdominal Pain Medical Decision Making Chronic inguinal pain in a patient with history of large inguinal hernia. He does have increased swelling. There is no significant redness or warmth. He is afebrile. He is given pain medication here with some improvement. He will be given a very short course of pain medication for home. He will attend dialysis tomorrow as scheduled. No radiology studies performed this visit Discharge Plan Discharge Patient Disposition: Home Clinical Impression: Hernia, inguinal, right, Right hydrocele Condition: Stable Prescriptions: New hydrocodone-acetaminophen 5-325 mg tablet 1 tab PO Q8H PRN (Reason: pain) Qty: 7 0RF No Action (DME) DME - BIPAP See Rx Instructions .Route .MEDSUPPLY Qty: 1 0RF Rx Instructions: Inspiratory Pressure: 16mmHg Expiratory Pressure: 8 mmHg Will need oxygen bled in to the machine to maintain sats >/= 90%. (DME) DME - Oxygen See Rx Instructions .Route .MEDSUPPLY Qty: 1 0RF Rx Instructions: Supplemental Oxygen bled into BIPAP at 2-3L to maintain oxygen sats at >/= 90%. Auryxia 210 mg iron Tablet See Rx Instructions .ROUTE .COMPLEX Rx Instructions: 420 mg (2 tabs) orally three times a day and 210mg (1 tab) with snacks aspirin 81 mg tablet,delayed release (DR/EC) 81 mg PO QAM pantoprazole 40 mg tablet,delayed release (DR/EC) 40 mg PO BEDTIME isosorbide mononitrate 120 mg tablet extended release 24 hr 240 mg PO QAM RenaPlex-D 800 mcg-12.5 mg -2,000 unit tablet 1 tab PO QAM carvedilol 25 mg tablet 37.5 mg PO Q12H atorvastatin 40 mg tablet 40 mg PO BEDTIME amlodipine 10 mg tablet 10 mg PO QAM hydralazine 100 mg tablet 100 mg PO Q8H prasugrel 10 mg tablet 10 mg PO QAM minoxidil 2.5 mg tablet 10 mg PO TID albuterol sulfate 90 mcg/actuation Hfa Aerosol Inhaler 2 puff INHALATION QID PRN (Reason: Shortness Of Breath) doxycycline hyclate 100 mg tablet 100 mg PO BID Rx Instructions: for 7 days (rx filled 07/22/23) Discharge Orders: Discharge ED (Routine); Ordered 08/17/23 Ordered By: Jose Ward Referrals: Mal Junior [Primary Care Provider] - 1-3 days Patient Instructions: Hydrocele (ED), Inguinal Hernia (ED), Opioid Safety, Pain Management Activity Restrictions/Additional Instructions: Use ice for swelling. Elevate is much as possible. Attend dialysis as tiffanie eduled. Use pain medication sparingly. Return for fever, vomiting, other concerning symptoms. Coding Level of Care Code ED Glycerin Operator for Cristi Diane
[2023-08-17 03:05] VITALS: RESP 20
[2023-08-17] MEDS: ondansetron 4 MG Tablet PO (03:05)
[2023-08-17] MEDS: HYDROmorphone 1 mg/mL INJ 1 mL IM (03:05)
[2023-08-17 03:42] VITALS: BP 152/87; PULSE 86; RESP 18; O2SAT 97
== END 2023-08-17 03:50 | disposition home or self-care (01) ==
PROVIDERS: Emergency Provider Emergency Medicine; PCP Family Medicine
DX: K40.90 Unilateral inguinal hernia, without obstruction or gangrene, not specified as recurrent (principal); N43.3 Hydrocele, unspecified; Z79.82 Long term (current) use of aspirin; F17.210 Nicotine dependence, cigarettes, uncomplicated; I13.2 Hypertensive heart and chronic kidney disease with heart failure and with stage 5 chronic kidney disease, or end stage renal disease; N18.6 End stage renal disease; I50.9 Heart failure, unspecified; Z99.2 Dependence on renal dialysis; J44.9 Chronic obstructive pulmonary disease, unspecified; I25.10 Atherosclerotic heart disease of native coronary artery without angina pectoris; Z95.5 Presence of coronary angioplasty implant and graft
CPT/HCPCS: 96372; 99284; J1170; Q0162

== ENCOUNTER 2023-08-26 12:28 | Day surgery (SDC) | payer MEDICARE, MEDICAID, SELFPAY ==
--- NOTE | 2023-08-26 12:29 | US_ITS ---
WS: [id number] ULTRASOUND-GUIDED PARACENTESIS CLINICAL INFORMATION: ascites COMPARISON: None. Procedure Informed consent: The risks, benefits, and alternatives of the procedure were discussed with the mariah ent. Verbal and written consent was obtained. Timeout: A timeout was performed to confirm the correct patient, procedure, and site. Preparation: A suitable skin site was identified. The patient was prepped and draped in usual sterile fashion. Lidocaine 1% was used for local anesthesia. Catheter: 4 Hebrew One-step Yueh catheter. Side: LEFT lower quadrant. Fluid Volume: 4200 ml Color: Light orange DISPOSITION: Discarded safely. Complications: None. Patient disposition: Discharged from the department in stable condition. IMPRESSION: Uncomplicated ultrasound-guided paracentesis. Removal of 4200
[2023-08-26 12:42] VITALS: BP 147/75; PULSE 77; RESP 16; TEMP 36.5; O2SAT 93; BMI 27.0
[2023-08-26 13:41] LABS: Cyto Order Verification Order Verified
[2023-08-26 14:04] LABS: Albumin Body Fluid 2.5 g/dL; Total Protein Body Fluid 4.3 g/dL
== END 2023-08-26 13:41 | disposition home or self-care (01) ==
PROVIDERS: Radiology Neuroradiology; PCP Family Medicine; Visit Provider Nurse Practitioner Family
PROC: (CPT 49082; principal; 2023-08-26 13:30)
DX: R18.8 Other ascites (principal)
CPT/HCPCS: 49083; 82042; 84157; 87070; 87075; 87205; 88112; 88305

== ENCOUNTER 2023-08-26 21:43 | Emergency (ER) | payer MEDICARE, MEDICAID, SELFPAY ==
[2023-08-26 21:47] VITALS: BP 127/62; PULSE 75; RESP 18; TEMP 36.4; O2SAT 94
--- NOTE | 2023-08-26 22:56 | W.ED.MALEGU ---
HPI - Male Genitourinary General: Chief complaint: Urogenital-Male Stated complaint: groin pain Time Seen by Provider: 08/26/23 22:22 History of Present Illness: Patient presents to the ER with complaints of right groin/hernia pain. Patient is a very large chronic right inguinal hernia. He stated today that he actually got it pinched in between a car door. He also said he went to [place] [facility] prior to coming here they gave him Tylenol and sent him home. Patient is having more pain than his normal pain. Patient denies any nausea vomiting diarrhea etc. Patient is lying on the bed in no acute appearing distress. Review of Systems General: Reports: 10 or more systems reviewed and unremarkable except in HPI and below PFSH ED PFSH: Medical History Acute and chronic respiratory failure with hypoxia Patient under care of multiple providers Hypertensive urgency History of cardiovascular stress test 07/2022 at [facility] perfusion imaging probably normal, no reversible defects, small fixed defect in apical anterior wall, EF 54%, nonischemic response to stress by EKG criteria Depression Epididymitis 06/2022 Pulmonary hypertension Uses bilevel positive airway pressure (BPAP) ventilation at home Umbilical hernia History of home oxygen therapy History of coronary angiogram 11/2021 - patent stent Inguinal hernia Anxiety Chronic respiratory failure on home oxygen and bipap Low back pain Nicotine dependence, cigarettes, with other nicotine-induced disorders Generalized anxiety disorder with panic attacks ESRD on dialysis Atherosclerosis of coronary artery Stent and balloon angioplasty to proximal 1 OM branch Chronic abdominal pain COVID 05/25 Hypertensive emergency recurrent episodes Urethral stricture Abdominal ascites history of intermittent paracentesis, transudative fluid; prior work up has included negative biopsy, ceruloplasmin level normal, low iron, high ferritin, normal TIBC, negative HIV, hepatitis panel negative, JESÚS/SCL 70/double-stranded DNA antibodies negative, Alpha-fetoprotein level unremarkable, nonalcoholic by history, has hepatomegaly and splenomegaly Pulmonary embolism 09/21 CTA inconclusive for very tiny peripheral LEFT lower lobe pulmonary artery sub segmental emboli versus poor opacification. Anemia chronic kidney disease Congestive heart failure preserved ejection fraction COPD (chronic obstructive pulmonary disease) Arteriovenous fistula for hemodialysis in place, secondary Degenerative disc disease, lumbar Hypertension uncontrolled Surgical History Stented coronary artery H/O hand surgery Amputation right 2&3 fingers 2017 History of adenoidectomy Family History Other Hypertension Social History Smoking and tobacco/nicotine status: current every day tobacco/nicotine user cigarettes Packs smoked per day: 1.5 Years cigarettes smoked: 21 [ Other cigarette details: started age 20, currently 0.5ppd ] Alcohol intake: never Substance/Drug Use: never Number of children: 3 Current occupational status: disabled Do you think of yourself as: Straight/Heterosexual Physical Exam Const: COMMON NORMALS: no acute distress, average body habitus, patient oriented x3, no limitations, healthy appearing, alert and well nourished Eye: OTHER: Left eye bloodshot and irritated consistent with conjunctivitis. Neck/C-Spine: COMMON NORMALS: no JVD Chest: COMMONS NORMALS: normal inspection of the chest and normal palpation of entire chest wall Resp: COMMON NORMALS: normal respiratory effort, No retractions, No use of accessory muscles and clear to auscultation bilaterally AUSCULTATION: clear to auscultation bilaterally Cardio: COMMON NORMALS: no JVD, regular rate, regular rhythm, S1 normal heart sound present, S2 normal heart sound present, No gallops present (Cardio), No clicks present (Cardio), No murmurs present (Cardio) and No rub (Cardio) RATE: regular rate RHYTHM: regular rhythm HEART SOUNDS: S1 normal heart sound present and S2 normal heart sound present GI: COMMON NORMALS: Normal to inspection, nondistended, normoactive bowel sounds present, Soft to palpation, non-tender, No hepatosplenomegaly present and no masses PALPATION: Yes Soft to palpation and Yes No hepatosplenomegaly present : OTHER: Prominent right-sided inguinal hernia all the way down to the scrotum tender to palpate no obvious signs of trauma, erythema, ecchymosis Neuro: COMMON NORMALS: patient oriented x3 SENSORIUM/ORIENTATION: Yes alert Course Vital Signs: Vital signs: Vital Signs Temperature 97.6 F 08/26/23 21:47 Pulse Rate 76 08/26/23 23:33 Respiratory Rate 15 08/26/23 23:33 Blood Pressure 141/73 08/26/23 23:33 Pulse Oximetry 92 08/26/23 23:33 Oxygen Delivery Me thod Room Air 08/26/23 23:33 MDM - Male Medical Decision Making Patient physical exam performed he was given 2 [place] fives. Patient complained of left eye pain and irritation this eye was examined. It we decided to place some gentamicin ophthalmic eyedrops and it for conjunctivitis. Patient be sent home to follow-up with his PCP. Differential Diagnosis Likely inguinal hernia; Unlikely urinary tract infection, priapism, urethritis, epididymitis, genital herpes simplex, prostatitis or acute retention of urine Medical Records I reviewed the patient's medical records. Lab Data I reviewed the patient's lab results. No radiology studies performed this visit Discharge Plan Discharge Patient Disposition: Home Clinical Impression: Inguinal hernia Qualifiers: Obstruction and gangrene presence: without obstruction or gangrene Laterality: unilateral Recurrence: recurrent Qualified Code(s): K40.91 - Unilateral inguinal hernia, without obstruction or gangrene, recurrent Conjunctivitis Qualifiers: Conjunctivitis type: acute Acute conjunctivitis type: unspecified Laterality: left Qualified Code(s): H10.32 - Unspecified acute conjunctivitis, left eye Condition: Stable Prescriptions: No Action (DME) DME - BIPAP See Rx Instructions .Route .MEDSUPPLY Qty: 1 0RF Rx Instructions: Inspiratory Pressure: 16mmHg Expiratory Pressure: 8 mmHg Will need oxygen bled in to the machine to maintain sats >/= 90%. (DME) DME - Oxygen See Rx Instructions .Route .MEDSUPPLY Qty: 1 0RF Rx Instructions: Supplemental Oxygen bled into BIPAP at 2-3L to maintain oxygen sats at >/= 90%. Auryxia 210 mg iron Tablet See Rx Instructions .ROUTE .COMPLEX Rx Instructions: 420 mg (2 tabs) orally three times a day and 210mg (1 tab) with snacks aspirin 81 mg tablet,delayed release (DR/EC) 81 mg PO QAM pantoprazole 40 mg tablet,delayed release (DR/EC) 40 mg PO BEDTIME isosorbide mononitrate 120 mg tablet extended release 24 hr 240 mg PO QAM RenaPlex-D 800 mcg-12.5 mg -2,000 unit tablet 1 tab PO QAM carvedilol 25 mg tablet 37.5 mg PO Q12H atorvastatin 40 mg tablet 40 mg PO BEDTIME amlodipine 10 mg tablet 10 mg PO QAM hydralazine 100 mg tablet 100 mg PO Q8H prasugrel 10 mg tablet 10 mg PO QAM clonidine 0.2 mg/24 hr patch weekly 1 patch topical .WKLY oxycodone 5 mg tablet 5 mg PO Q6H PRN (Reason: Pain) hydrocodone-acetaminophen 5-325 mg tablet 1 tab PO Q8H PRN (Reason: pain) Qty: 7 0RF minoxidil 2.5 mg tablet 10 mg PO TID albuterol sulfate 90 mcg/actuation Hfa Aerosol Inhaler 2 puff INHALATION QID PRN (Reason: Shortness Of Breath) Discharge Orders: Discharge ED (Routine); Ordered 08/27/23 Ordered By: Colton Child Referrals: Mal Junior [Primary Care Provider] - 1 week Patient Instructions: Inguinal Hernia (ED), Conjunctivitis (ED) Activity Restrictions/Additional Instructions: Continue the gentamicin eyedrops at 1 drop in your left eye 3 times a day for a week. Otherwise please follow-up with your family practice physician within next 7 days for further evaluation and treatment. Coding Level of Care Code ED Ground Service Equipment Mechanic for Cristi Diane
[2023-08-26] MEDS: HYDROcodone-acetaminophen 5-325 mg Tablet 1 TAB PO (23:28)
[2023-08-26 23:33] VITALS: BP 141/73; PULSE 76; RESP 15; O2SAT 92
[2023-08-27] VITALS: BP 193/98; PULSE 82; RESP 16; O2SAT 93
[2023-08-27] MEDS: HYDROcodone-acetaminophen 5-325 mg Tablet 1 TAB PO ×2 (00:30→01:41)
[2023-08-27] MEDS: ciprofloxacin 0.3% Op Soln 2.5 mL Btl 1 DROP EYE-LEFT (01:32)
[2023-08-27 01:47] VITALS: BP 147/77; PULSE 81; RESP 18; O2SAT 92
== END 2023-08-27 01:49 | disposition home or self-care (01) ==
PROVIDERS: Emergency Provider Emergency Medicine; PCP Family Medicine
DX: K40.91 Unilateral inguinal hernia, without obstruction or gangrene, recurrent (principal); H10.32 Unspecified acute conjunctivitis, left eye; Z79.82 Long term (current) use of aspirin; F17.210 Nicotine dependence, cigarettes, uncomplicated; I13.2 Hypertensive heart and chronic kidney disease with heart failure and with stage 5 chronic kidney disease, or end stage renal disease; N18.6 End stage renal disease; I50.9 Heart failure, unspecified; Z99.2 Dependence on renal dialysis; I25.10 Atherosclerotic heart disease of native coronary artery without angina pectoris; Z95.5 Presence of coronary angioplasty implant and graft; J44.9 Chronic obstructive pulmonary disease, unspecified
CPT/HCPCS: 99283

== ENCOUNTER 2023-09-05 17:15 | Emergency (ER) | payer MEDICARE, MEDICAID, SELFPAY ==
[2023-09-05 17:29] VITALS: BP 127/74; PULSE 77; RESP 20; TEMP 36.8; O2SAT 94; BMI 25.3
--- NOTE | 2023-09-05 17:38 | ED_ITS ---
HPI - Abdominal Pain General: Chief Complaint: Abdominal Pain Stated Complaint: abd pain, groin pain Time Seen by Provider: 09/05/23 17:34 History of Present Illness: 43-year-old male patient comes in today with umbilical hernia pain. Patient also has a large right inguinal hernia. Patient been seen multiple times in ER for this hernia pain. Patient is also on dialysis chronically. Patient appears chronically ill but not toxic. Patient ambulates well. Review of Systems General: Reports: 10 or more systems reviewed and unremarkable except in HPI and below GI: Reports: abdominal pain PFSH ED PFSH: Medical History Acute and chronic respiratory failure with hypoxia Patient under care of multiple providers Hypertensive urgency History of cardiovascular stress test 07/2022 at [facility] perfusion imaging probably normal, no reversible defects, small fixed defect in apical anterior wall, EF 54%, nonischemic response to stress by EKG criteria Depression Epididymitis 06/2022 Pulmonary hypertension Uses bilevel positive airway pressure (BPAP) ventilation at home Umbilical hernia History of home oxygen therapy History of coronary angiogram 11/2021 - patent stent Inguinal hernia Anxiety Chronic respiratory failure on home oxygen and bipap Low back pain Nicotine dependence, cigarettes, with other nicotine-induced disorders Generalized anxiety disorder with panic attacks ESRD on dialysis Atherosclerosis of coronary artery Stent and balloon angioplasty to proximal 1 OM branch Chronic abdominal pain COVID 05/25 Hypertensive emergency recurrent episodes Urethral stricture Abdominal ascites history of intermittent paracentesis, transudative fluid; prior work up has included negative biopsy, ceruloplasmin level normal, low iron, high ferritin, normal TIBC, negative HIV, hepatitis panel negative, JESÚS/SCL 70/double-stranded DNA antibodies negative, Alpha-fetoprotein level unremarkable, nonalcoholic by history, has hepatomegaly and splenomegaly Pulmonary embolism 09/21 CTA inconclusive for very tiny peripheral LEFT lower lobe pulmonary artery sub segmental emboli versus poor opacification. Anemia chronic kidney disease Congestive heart failure preserved ejection fraction COPD (chronic obstructive pulmonary disease) Arteriovenous fistula for hemodialysis in place, secondary Degenerative disc disease, lumbar Hypertension uncontrolled Surgical History Stented coronary artery H/O hand surgery Amputation right 2&3 fingers 2017 History of adenoidectomy Family History Other Hypertension Social History Smoking and tobacco/nicotine status: current every day tobacco/nicotine user cigarettes Packs smoked per day: 1.5 Years cigarettes smoked: 21 [ Other cigarette details: started age 20, currently 0.5ppd ] Alcohol intake: never Substance/Drug Use: never Number of children: 3 Current occupational status: disabled Do you think of yourself as: Straight/Heterosexual Physical Exam Const: COMMON NORMALS: alert HENMT: COMMON NORMALS: normocephalic HEAD & SCALP: normocephalic Neck/C-Spine: COMMON NORMALS: full ROM Resp: COMMON NORMALS: normal respiratory effort Cardio: COMMON NORMALS: regular rate RATE: regular rate GI: AUSCULTATION: Yes normoactive bowel sounds OTHER: Umbilical hernia is easily reduced without any signs of redness or induration surrounding it. Inguinal hernia is extremely large but no signs of redness or induration is noted to the skin. Back/Pelvis: COMMON NORMALS: thoracic and lumbar spine normal to inspection Extremity: COMMON NORMALS: full ROM Neuro: SENSORIUM/ORIENTATION: Yes alert Skin: COMMON NORMALS: turgor normal GENERAL SKIN EXAM: turgor normal Course Vital Signs: Vital signs: Vital Signs Temperature 98.2 F 09/05/23 17:29 Pulse Rate 77 09/05/23 17:29 Respiratory Rate 20 H 09/05/23 17:29 Blood Pressure 127/74 09/05/23 17:29 Pulse Oximetry 94 09/05/23 17:29 Oxygen Delivery Me thod Room Air 09/05/23 17:29 MDM - Abdominal Pain Medical Decision Making Patient comes in today for complaints of abdominal pain secondary to hernia. On exam patient has a umbilical hernia and a right inguinal hernia. The umbilical hernia is easily reduced. Patient has good bowel sounds throughout. No skin induration or redness is noted to either hernia sites. Vital signs are normal. Differential diagnosis includes not limited to unlikely bowel obstruction, unlikely incarcerated hernia, abdominal muscle strain, constipation. No signs of serious illness or injury is noted at this time. Patient be given some medication to help with nausea and pain. Recommended follow-up with primary care to discuss chronic pain management. Patient and reported understanding. No radiology studies performed this visit Discharge Plan Discharge Patient Disposition: Home Clinical Impression: Hernia, inguinal, right Abdominal pain Qualifiers: Abdominal location: unspecified location Qualified Code(s): R10.9 - Unspecified abdominal pain Umbilical hernia Qualifiers: Obstruction and gangrene presence: without obstruction or gangrene Qualified Code(s): K42.9 - Umbilical hernia without obstruction or gangrene Condition: Stable Prescriptions: New hydrocodone-acetaminophen 5-325 mg tablet 1 tab PO Q8H PRN (Reason: pain) Qty: 10 0RF ondansetron 4 mg tablet,disintegrating 4 mg PO Q8H PRN (Reason: nausea and vomiting) Qty: 10 0RF Discontinued oxycodone 5 mg tablet 5 mg PO Q6H PRN (Reason: Pain) hydrocodone-acetaminophen 5-325 mg tablet 1 tab PO Q8H PRN (Reason: pain) Qty: 7 0RF No Action (DME) DME - BIPAP See Rx Instructions .Route .MEDSUPPLY Qty: 1 0RF Rx Instructions: Inspiratory Pressure: 16mmHg Expiratory Pressure: 8 mmHg Will need oxygen bled in to the machine to maintain sats >/= 90%. (DME) DME - Oxygen See Rx Instructions .Route .MEDSUPPLY Qty: 1 0RF Rx Instructions: Supplemental Oxygen bled into BIPAP at 2-3L to maintain oxygen sats at >/= 90%. Auryxia 210 mg iron Tablet See Rx Instructions .ROUTE .COMPLEX Rx Instructions: 420 mg (2 tabs) orally three times a day and 210mg (1 tab) with snacks aspirin 81 mg tablet,delayed release (DR/EC) 81 mg PO QAM pantoprazole 40 mg tablet,delayed release (DR/EC) 40 mg PO BEDTIME isosorbide mononitrate 120 mg tablet extended release 24 hr 240 mg PO QAM RenaPlex-D 800 mcg-12.5 mg -2,000 unit tablet 1 tab PO QAM carvedilol 25 mg tablet 37.5 mg PO Q12H atorvastatin 40 mg tablet 40 mg PO BEDTIME amlodipine 10 mg tablet 10 mg PO QAM hydralazine 100 mg tablet 100 mg PO Q8H prasugrel 10 mg tablet 10 mg PO QAM clonidine 0.2 mg/24 hr patch weekly 1 patch topical .WKLY minoxidil 2.5 mg tablet 10 mg PO TID albuterol sulfate 90 mcg/actuation Hfa Aerosol Inhaler 2 puff INHALATION QID PRN (Reason: Shortness Of Breath) Discharge Orders: Discharge ED (Routine); Ordered 09/05/23 Ordered By: Zan Bailey Referrals: Mal Junior [Primary Care Provider] - Discharge Diet: Usual diet Discharge Activity: Increase activity as tolerated Patient Instructions: Abdominal Pain (ED) Activity Restrictions/Additional Instructions: Follow-up with primary care for further instructions. Return to ER for new concerns. Coding Level of Care Code ED Preassembler And Inspector for Cristi Diane
[2023-09-05] MEDS: ondansetron 4 MG Tablet PO (17:43)
[2023-09-05] MEDS: HYDROcodone-acetaminophen 5-325 mg Tablet 1 TAB PO (17:43)
[2023-09-05 17:57] VITALS: BP 127/74; PULSE 79; RESP 16; TEMP 36.8; O2SAT 95
--- NOTE | 2023-09-05 18:28 | DCPLANNER ---
Sent a followup to pain management 09/05/23 @[id number]
== END 2023-09-05 17:58 | disposition home or self-care (01) ==
PROVIDERS: Emergency Provider Nurse Practitioner Family; PCP Family Medicine
DX: K40.90 Unilateral inguinal hernia, without obstruction or gangrene, not specified as recurrent (principal); K42.9 Umbilical hernia without obstruction or gangrene; Z79.82 Long term (current) use of aspirin; F17.210 Nicotine dependence, cigarettes, uncomplicated; I13.2 Hypertensive heart and chronic kidney disease with heart failure and with stage 5 chronic kidney disease, or end stage renal disease; N18.6 End stage renal disease; I50.9 Heart failure, unspecified; Z99.2 Dependence on renal dialysis; Z99.81 Dependence on supplemental oxygen; I25.10 Atherosclerotic heart disease of native coronary artery without angina pectoris; J44.9 Chronic obstructive pulmonary disease, unspecified
CPT/HCPCS: 99283; Q0162

== ENCOUNTER 2023-09-08 23:14 | Emergency (ER) | payer MEDICARE, MEDICAID, SELFPAY ==
[2023-09-08 23:19] VITALS: BP 142/76; PULSE 83; RESP 16; TEMP 36.9; O2SAT 92
--- NOTE | 2023-09-09 00:08 | ED_ITS ---
HPI - Abdominal Pain General: Chief Complaint: Abdominal Pain Stated Complaint: hit his hernia and extreamly nauseous Time Seen by Provider: 09/08/23 23:42 History of Present Illness: Patient presents to the ER with complaints that he accidentally kicked himself in the right hernia and has been nauseated and had pain ever since. Patient says he does not have anything at home to use for pain or nausea. Patient does not look in acute distress or nontoxic. Patient is well-known to the ER. Review of Systems General: Reports: 10 or more systems reviewed and unremarkable except in HPI and below PFSH ED PFSH: Medical History Acute and chronic respiratory failure with hypoxia Patient under care of multiple providers Hypertensive urgency History of cardiovascular stress test 07/2022 at [facility] perfusion imaging probably normal, no reversible defects, small fixed defect in apical anterior wall, EF 54%, nonischemic response to stress by EKG criteria Depression Epididymitis 06/2022 Pulmonary hypertension Uses bilevel positive airway pressure (BPAP) ventilation at home Umbilical hernia History of home oxygen therapy History of coronary angiogram 11/2021 - patent stent Inguinal hernia Anxiety Chronic respiratory failure on home oxygen and bipap Low back pain Nicotine dependence, cigarettes, with other nicotine-induced disorders Generalized anxiety disorder with panic attacks ESRD on dialysis Atherosclerosis of coronary artery Stent and balloon angioplasty to proximal 1 OM branch Chronic abdominal pain COVID 05/25 Hypertensive emergency recurrent episodes Urethral stricture Abdominal ascites history of intermittent paracentesis, transudative fluid; prior work up has included negative biopsy, ceruloplasmin level normal, low iron, high ferritin, normal TIBC, negative HIV, hepatitis panel negative, JESÚS/SCL 70/double-stranded DNA antibodies negative, Alpha-fetoprotein level unremarkable, nonalcoholic by history, has hepatomegaly and splenomegaly Pulmonary embolism 09/21 CTA inconclusive for very tiny peripheral LEFT lower lobe pulmonary artery sub segmental emboli versus poor opacification. Anemia chronic kidney disease Congestive heart failure preserved ejection fraction COPD (chronic obstructive pulmonary disease) Arteriovenous fistula for hemodialysis in place, secondary Degenerative disc disease, lumbar Hypertension uncontrolled Surgical History Stented coronary artery H/O hand surgery Amputation right 2&3 fingers 2017 History of adenoidectomy Family History Other Hypertension Social History Smoking and tobacco/nicotine status: current every day tobacco/nicotine user cigarettes Packs smoked per day: 1.5 Years cigarettes smoked: 21 [ Other cigarette details: started age 20, currently 0.5ppd ] Alcohol intake: never Substance/Drug Use: never Number of children: 3 Current occupational status: disabled Do you think of yourself as: Straight/Heterosexual Physical Exam Const: COMMON NORMALS: no acute distress, average body habitus, no limitations, healthy appearing, alert and well nourished Neck/C-Spine: COMMON NORMALS: no JVD Chest: COMMONS NORMALS: normal inspection of the chest and normal palpation of entire chest wall Resp: COMMON NORMALS: normal respiratory effort, No retractions, No use of accessory muscles and clear to auscultation bilaterally AUSCULTATION: clear to auscultation bilaterally Cardio: COMMON NORMALS: no JVD, regular rate, regular rhythm, S1 normal heart sound present, S2 normal heart sound present, No gallops present (Cardio), No clicks present (Cardio), No murmurs present (Cardio) and No rub (Cardio) RATE: regular rate RHYTHM: regular rhythm HEART SOUNDS: S1 normal heart sound present and S2 normal heart sound present GI: COMMON NORMALS: Normal to inspection, nondistended, normoactive bowel sounds present, Soft to palpation, No hepatosplenomegaly present and no masses; negative for non-tender (Right inguinal hernia noted tender to palpate) PALPATION: Yes Soft to palpation and Yes No hepatosplenomegaly present Neuro: SENSORIUM/ORIENTATION: Yes alert Course Vital Signs: Vital signs: Vital Signs Temperature 98.4 F 09/08/23 23:19 Pulse Rate 83 09/08/23 23:19 Respiratory Rate 16 09/08/23 23:19 Blood Pressure 142/76 09/08/23 23:19 Pulse Oximetry 92 09/08/23 23:19 Oxygen Delivery Me thod Room Air 09/08/23 23:19 MDM - Abdominal Pain Medical Decision Making Patient was given 1 Belen 5 open 4 mg Zofran p.o. Patient does not appear in acute distress or toxic at this time. Patient's vital signs are stable. Patient be discharged home to follow-up with his PCP for further evaluation and treatment. Differential Diagnosis Unlikely abdominal pain, acute appendicitis, calculus of kidney, constipation, diverticulitis, endometriosis, gastroenteritis, pancreatitis or small bowel obstruction Medical Records I reviewed the patient's medical records. Lab Data I reviewed the patient's lab results. No radiology studies performed this visit Discharge Plan Discharge Patient Disposition: Home Clinical Impression: Hernia, inguinal, right Abdominal pain Qualifiers: Abdominal location: unspecified location Qualified Code(s): R10.9 - Unspecified abdominal pain Condition: Stable Prescriptions: No Action (DME) DME - BIPAP See Rx Instructions .Route .MEDSUPPLY Qty: 1 0RF Rx Instructions: Inspiratory Pressure: 16mmHg Expiratory Pressure: 8 mmHg Will need oxygen bled in to the machine to maintain sats >/= 90%. (DME) DME - Oxygen See Rx Instructions .Route .MEDSUPPLY Qty: 1 0RF Rx Instructions: Supplemental Oxygen bled into BIPAP at 2-3L to maintain oxygen sats at >/= 90%. Auryxia 210 mg iron Tablet See Rx Instructions .ROUTE .COMPLEX Rx Instructions: 420 mg (2 tabs) orally three times a day and 210mg (1 tab) with snacks aspirin 81 mg tablet,delayed release (DR/EC) 81 mg PO QAM pantoprazole 40 mg tablet,delayed release (DR/EC) 40 mg PO BEDTIME isosorbide mononitrate 120 mg tablet extended release 24 hr 240 mg PO QAM RenaPlex-D 800 mcg-12.5 mg -2,000 unit tablet 1 tab PO QAM carvedilol 25 mg tablet 37.5 mg PO Q12H atorvastatin 40 mg tablet 40 mg PO BEDTIME amlodipine 10 mg tablet 10 mg PO QAM hydralazine 100 mg tablet 100 mg PO Q8H prasugrel 10 mg tablet 10 mg PO QAM clonidine 0.2 mg/24 hr patch weekly 1 patch topical .WKLY minoxidil 2.5 mg tablet 10 mg PO TID albuterol sulfate 90 mcg/actuation Hfa Aerosol Inhaler 2 puff INHALATION QID PRN (Reason: Shortness Of Breath) hydrocodone-acetaminophen 5-325 mg tablet 1 tab PO Q8H PRN (Reason: pain) Qty: 10 0RF ondansetron 4 mg tablet,disintegrating 4 mg PO Q8H PRN (Reason: nausea and vomiting) Qty: 10 0RF Discharge Orders: Discharge ED (Routine); Ordered 09/09/23 Ordered By: Colton Child Referrals: Mal Junior [Primary Care Provider] - 1 week Patient Instructions: Abdominal Pain (ED) Activity Restrictions/Additional Instructions: Please be careful try not to injure your chronic inguinal hernia. Please follow-up with your family practice physician for further chronic pain management. Coding Level of Care Code ED Customer Strategy Manager for Cristi Diane
[2023-09-09] MEDS: HYDROcodone-acetaminophen 5-325 mg Tablet 1 TAB PO (00:17)
[2023-09-09] MEDS: ondansetron 4 MG Tablet PO (00:17)
[2023-09-09 00:25] VITALS: BP 142/76; PULSE 83; RESP 16; TEMP 36.9; O2SAT 92
== END 2023-09-09 00:26 | disposition home or self-care (01) ==
PROVIDERS: Emergency Provider Emergency Medicine; PCP Family Medicine
DX: K40.90 Unilateral inguinal hernia, without obstruction or gangrene, not specified as recurrent (principal); R10.9 Unspecified abdominal pain; Z79.82 Long term (current) use of aspirin; F17.210 Nicotine dependence, cigarettes, uncomplicated; I13.2 Hypertensive heart and chronic kidney disease with heart failure and with stage 5 chronic kidney disease, or end stage renal disease; N18.6 End stage renal disease; I50.9 Heart failure, unspecified; Z99.2 Dependence on renal dialysis; J44.9 Chronic obstructive pulmonary disease, unspecified; I25.10 Atherosclerotic heart disease of native coronary artery without angina pectoris; Z95.5 Presence of coronary angioplasty implant and graft; Z99.81 Dependence on supplemental oxygen
CPT/HCPCS: 99283; Q0162

== ENCOUNTER 2023-09-14 21:01 | Emergency (ER) | payer MEDICARE, MEDICAID, SELFPAY ==
[2023-09-14 21:08] VITALS: BP 151/83; PULSE 82; RESP 16; TEMP 36.7; O2SAT 94
--- NOTE | 2023-09-14 21:17 | W.ED.GENADLT ---
HPI - General Adult General: Chief complaint: General Medical Stated complaint: hernia pain Time Seen by Provider: 09/14/23 21:05 Source: patient Mode of arrival: ambulatory Limitations: no limitations History of Present Illness: 43-year-old male very well-known to the ER he states he is having some right lower quadrant pain where he has an inguinal hernia that he has had for quite some time has been seen here multiple times for it. States pain sharp in nature rates it a 5 out of 10 had some nausea denies any vomiting denies any fevers. Associated symptoms: Deny chest pain, dyspnea, headache(s), nausea, rash or vomiting Review of Systems Const: Denies: fever(s), chills, body aches or change in appetite Eyes: Denies: blurry vision or eye discomfort ENMT: Reports: throat pain; Denies: dental pain Card: Denies: chest pain Resp: Denies: dyspnea GI: Denies: abdominal pain, nausea, vomiting or diarrhea : Denies: dysuria Musc: Denies: neck pain or back pain Skin/Breast: Denies: rash Neuro: Denies: headache(s) PFSH ED PFSH: Medical History Acute and chronic respiratory failure with hypoxia Patient under care of multiple providers Hypertensive urgency History of cardiovascular stress test 07/2022 at [facility] perfusion imaging probably normal, no reversible defects, small fixed defect in apical anterior wall, EF 54%, nonischemic response to stress by EKG criteria Depression Epididymitis 06/2022 Pulmonary hypertension Uses bilevel positive airway pressure (BPAP) ventilation at home Umbilical hernia History of home oxygen therapy History of coronary angiogram 11/2021 - patent stent Inguinal hernia Anxiety Chronic respiratory failure on home oxygen and bipap Low back pain Nicotine dependence, cigarettes, with other nicotine-induced disorders Generalized anxiety disorder with panic attacks ESRD on dialysis Atherosclerosis of coronary artery Stent and balloon angioplasty to proximal 1 OM branch Chronic abdominal pain COVID 05/25 Hypertensive emergency recurrent episodes Urethral stricture Abdominal ascites history of intermittent paracentesis, transudative fluid; prior work up has included negative biopsy, ceruloplasmin level normal, low iron, high ferritin, normal TIBC, negative HIV, hepatitis panel negative, JESÚS/SCL 70/double-stranded DNA antibodies negative, Alpha-fetoprotein level unremarkable, nonalcoholic by history, has hepatomegaly and splenomegaly Pulmonary embolism 09/21 CTA inconclusive for very tiny peripheral LEFT lower lobe pulmonary artery sub segmental emboli versus poor opacification. Anemia chronic kidney disease Congestive heart failure preserved ejection fraction COPD (chronic obstructive pulmonary disease) Arteriovenous fistula for hemodialysis in place, secondary Degenerative disc disease, lumbar Hypertension uncontrolled Surgical History Stented coronary artery H/O hand surgery Amputation right 2&3 fingers 2017 History of adenoidectomy Family History Other Hypertension Social History Smoking and tobacco/nicotine status: current every day tobacco/nicotine user cigarettes Packs smoked per day: 1.5 Years cigarettes smoked: 21 [ Other cigarette details: started age 20, currently 0.5ppd ] Alcohol intake: never Substance/Drug Use: never Number of children: 3 Current occupational status: disabled Do you think of yourself as: Straight/Heterosexual Physical Exam Const: COMMON NORMALS: no acute distress, patient oriented x3 and healthy appearing HENMT: COMMON NORMALS: normocephalic and atraumatic HEAD & SCALP: normocephalic and atraumatic Eye: COMMON NORMALS: conjunctivae normal CONJUNCTIVA: Yes conjunctivae normal Neck/C-Spine: COMMON NORMALS: supple Chest: COMMONS NORMALS: normal inspection of the chest Resp: COMMON NORMALS: normal respiratory effort GI: OTHER: Large inguinal hernia noted some tenderness over the hernia no tenderness at McBurney's point Extremity: COMMON NORMALS: normal to inspection and full ROM Neuro: COMMON NORMALS: patient oriented x3, moves all extremities and no focal motor deficits Psych: COMMON NORMALS: mental status grossly normal, Normal thought process present and cooperative THOUGHT PROCESS: Normal thought process present Skin: COMMON NORMALS: no rashes or lesions noted and no wounds GENERAL SKIN EXAM: no rashes or lesions noted Course Vital Signs: Vital signs: Vital Signs Temperature 98.1 F 09/14/23 21:08 Pulse Rate 82 09/14/23 21:08 Respiratory Rate 16 09/14/23 21:08 Blood Pressure 151/83 09/14/23 21:08 Pulse Oximetry 94 09/14/23 21:08 Oxygen Delivery Me thod Room Air 09/14/23 21:08 MDM - General Adult Medical Decision Making Patient presents here with hernia pain has been chronic in nature his exam here is benign no signs appendicitis or strangulated hernia we will give him pain meds he stable for discharge follow-up PCP return if worsening. Medical Records I reviewed the patient's medical records. No radiology studies performed this visit Discharge Plan Discharge Patient Disposition: Home Clinical Impression: Hernia, inguinal, right, Abdominal pain Condition: Stable Prescriptions: No Action (DME) DME - BIPAP See Rx Instructions .Route .MEDSUPPLY Qty: 1 0RF Rx Instructions: Inspiratory Pressure: 16mmHg Expiratory Pressure: 8 mmHg Will need oxygen bled in to the machine to maintain sats >/= 90%. (DME) DME - Oxygen See Rx Instructions .Route .MEDSUPPLY Qty: 1 0RF Rx Instructions: Supplemental Oxygen bled into BIPAP at 2-3L to maintain oxygen sats at >/= 90%. Auryxia 210 mg iron Tablet See Rx Instructions .ROUTE .COMPLEX Rx Instructions: 420 mg (2 tabs) orally three times a day and 210mg (1 tab) with snacks aspirin 81 mg tablet,delayed release (DR/EC) 81 mg PO QAM pantoprazole 40 mg tablet,delayed release (DR/EC) 40 mg PO BEDTIME isosorbide mononitrate 120 mg tablet extended release 24 hr 240 mg PO QAM RenaPlex-D 800 mcg-12.5 mg -2,000 unit tablet 1 tab PO QAM carvedilol 25 mg tablet 37.5 mg PO Q12H atorvastatin 40 mg tablet 40 mg PO BEDTIME amlodipine 10 mg tablet 10 mg PO QAM hydralazine 100 mg tablet 100 mg PO Q8H prasugrel 10 mg tablet 10 mg PO QAM clonidine 0.2 mg/24 hr patch weekly 1 patch topical .WKLY minoxidil 2.5 mg tablet 10 mg PO TID albuterol sulfate 90 mcg/actuation Hfa Aerosol Inhaler 2 puff INHALATION QID PRN (Reason: Shortness Of Breath) hydrocodone-acetaminophen 5-325 mg tablet 1 tab PO Q8H PRN (Reason: pain) Qty: 10 0RF ondansetron 4 mg tablet,disintegrating 4 mg PO Q8H PRN (Reason: nausea and vomiting) Qty: 10 0RF Discharge Orders: Discharge ED (Routine); Ordered 09/14/23 Ordered By: Dayana Nunez Referrals: Mal Junior [Primary Care Provider] - 1-3 days Discharge Diet: Advance as tolerated Discharge Activity: Resume usual activity Patient Instructions: Abdominal Pain (ED) Coding Level of Care Code ED Mold Release Worker for Cristi Diane
[2023-09-14] MEDS: morphine 4 mg/mL SDV 1 mL IM (21:37)
[2023-09-14] MEDS: ondansetron 2 mg/ML SDV 2 mL 4 MG IM (21:38)
== END 2023-09-14 21:41 | disposition home or self-care (01) ==
PROVIDERS: Emergency Provider Emergency Medicine; PCP Family Medicine
DX: K40.90 Unilateral inguinal hernia, without obstruction or gangrene, not specified as recurrent (principal); Z79.82 Long term (current) use of aspirin; F17.210 Nicotine dependence, cigarettes, uncomplicated; Z99.81 Dependence on supplemental oxygen; I13.2 Hypertensive heart and chronic kidney disease with heart failure and with stage 5 chronic kidney disease, or end stage renal disease; N18.6 End stage renal disease; I50.9 Heart failure, unspecified; Z99.2 Dependence on renal dialysis; I25.10 Atherosclerotic heart disease of native coronary artery without angina pectoris; Z95.5 Presence of coronary angioplasty implant and graft; J44.9 Chronic obstructive pulmonary disease, unspecified
CPT/HCPCS: 96372; 99284; J2270; J2405

== ENCOUNTER 2023-09-15 23:36 | Emergency (ER) | payer MEDICARE, MEDICAID, SELFPAY ==
[2023-09-15 23:41] VITALS: BP 135/77; PULSE 79; RESP 16; TEMP 36.9; O2SAT 93
[2023-09-15 23:43] VITALS: BP 135/77; RESP 16; O2SAT 94
[2023-09-15 23:44] VITALS: RESP 16; O2SAT 96
[2023-09-15] MEDS: morphine 4 mg/mL SDV 1 mL IM (23:44)
[2023-09-15] MEDS: ondansetron 2 mg/ML SDV 2 mL 4 MG IM (23:44)
--- NOTE | 2023-09-15 23:47 | ED_ITS ---
HPI - Abdominal Pain 2 General: Chief Complaint: Abdominal Pain Stated Complaint: groin and stomach pain Time Seen by Provider: 09/15/23 23:40 Source: patient Mode of arrival: ambulatory Limitations: no limitations History of Present Illness: 43-year-old male is very well-known to [facility] ER history of end-stage renal disease along with ascites he also has had a chronic right inguinal hernia he had chronic pain from this states been having pain tonight he states he is scheduled to have a possible paracentesis tomorrow denies any fever denies any vomiting diarrhea he rates his pain an 8 out of 10 Associated Symptoms: Denies chills, diarrhea, fever(s), nausea and vomiting Review of Systems 2 Const: Denies: fever(s), chills, body aches or change in appetite ENMT: Denies: throat pain or dental pain Card: Denies: chest pain Resp: Denies: dyspnea GI: Reports: abdominal pain; Denies: nausea, vomiting or diarrhea Musc: Denies: neck pain or back pain Skin/Breast: Denies: rash Neuro: Denies: headache(s) PFSH ED 2 PFSH: Medical History Acute and chronic respiratory failure with hypoxia Patient under care of multiple providers Hypertensive urgency History of cardiovascular stress test 07/2022 at [facility] perfusion imaging probably normal, no reversible defects, small fixed defect in apical anterior wall, EF 54%, nonischemic response to stress by EKG criteria Depression Epididymitis 06/2022 Pulmonary hypertension Uses bilevel positive airway pressure (BPAP) ventilation at home Umbilical hernia History of home oxygen therapy History of coronary angiogram 11/2021 - patent stent Inguinal hernia Anxiety Chronic respiratory failure on home oxygen and bipap Low back pain Nicotine dependence, cigarettes, with other nicotine-induced disorders Generalized anxiety disorder with panic attacks ESRD on dialysis Atherosclerosis of coronary artery Stent and balloon angioplasty to proximal 1 OM branch Chronic abdominal pain COVID 05/25 Hypertensive emergency recurrent episodes Urethral stricture Abdominal ascites history of intermittent paracentesis, transudative fluid; prior work up has included negative biopsy, ceruloplasmin level normal, low iron, high ferritin, normal TIBC, negative HIV, hepatitis panel negative, JESÚS/SCL 70/double-stranded DNA antibodies negative, Alpha-fetoprotein level unremarkable, nonalcoholic by history, has hepatomegaly and splenomegaly Pulmonary embolism 09/21 CTA inconclusive for very tiny peripheral LEFT lower lobe pulmonary artery sub segmental emboli versus poor opacification. Anemia chronic kidney disease Congestive heart failure preserved ejection fraction COPD (chronic obstructive pulmonary disease) Arteriovenous fistula for hemodialysis in place, secondary Degenerative disc disease, lumbar Hypertension uncontrolled Surgical History Stented coronary artery H/O hand surgery Amputation right 2&3 fingers 2017 History of adenoidectomy Family History Other Hypertension Social History Smoking and tobacco/nicotine status: current every day tobacco/nicotine user cigarettes Packs smoked per day: 1.5 Years cigarettes smoked: 21 [ Other cigarette details: started age 20, currently 0.5ppd ] Alcohol intake: never Substance/Drug Use: never Number of children: 3 Current occupational status: disabled Do you think of yourself as: Straight/Heterosexual Physical Exam 2 Const: COMMON NORMALS: no acute distress, patient oriented x3 and healthy appearing HENMT: COMMON NORMALS: normocephalic and atraumatic HEAD & SCALP: n ormocephalic and atraumatic Neck/C-Spine: COMMON NORMALS: full ROM and supple Chest: COMMONS NORMALS: normal inspection of the chest Resp: COMMON NORMALS: normal respiratory effort, No retractions, No use of accessory muscles and clear to auscultation bilaterally AUSCULTATION: clear to auscultation bilaterally Cardio: COMMON NORMALS: regular rate, regular rhythm and No murmurs present (Cardio) RATE: regular rate RHYTHM: regular rhythm GI: COMMON NORMALS: Normal to inspection, nondistended, normoactive bowel sounds present, Soft to palpation and no masses PALPATION: Yes Soft to palpation OTHER: Right inguinal hernia some slight tenderness Extremity: COMMON NORMALS: normal to inspection and full ROM Neuro: COMMON NORMALS: patient oriented x3, moves all extremities and no focal motor deficits Psych: COMMON NORMALS: mental status grossly normal, Normal thought process present and cooperative THOUGHT PROCESS: Normal thought process present Skin: COMMON NORMALS: no rashes or lesions noted and no wounds GENERAL SKIN EXAM: no rashes or lesions noted Course 2 Vital Signs: Vital signs: Vital Signs Temperature 98.4 F 09/15/23 23:41 Pulse Rate 79 09/15/23 23:41 Respiratory Rate 16 09/15/23 23:44 Blood Pressure 135/77 09/15/23 23:43 Pulse Oximetry 93 09/16/23 00:47 Oxygen Delivery Me thod Room Air 09/16/23 00:47 MDM - Abdominal Pain Medical Decision Making Patient presents with abdominal pain is chronic in nature is blood work including white count here is normal he stable for discharge follow-up PCP return if worsening. Medical Records I reviewed the patient's medical records. Lab Data I reviewed the patient's lab results. 09/16/23 00:17 09/16/23 00:17 Labs/Radiology: Laboratory Results WBC 4.93 10^3/uL (3.29-11.43) 09/16/23 00:17 RBC 3.64 10^6/uL (3.85-5.65) L 09/16/23 00:17 Hgb 10.10 g/dL (11.27-16.99) L 09/16/23 00:17 Hct 31.4 % (37-53) L 09/16/23 00:17 MCV 86.3 fl (82-101) 09/16/23 00:17 MCH 27.7 pg (27-33) 09/16/23 00:17 MCHC 32.2 g/dL (30-55) 09/16/23 00:17 RDW 18.3 % (12.1-15.1) H 09/16/23 00:17 Plt Count 181 10^3/cmm (157-399) 09/16/23 00:17 MPV 8.8 fL (7.4-10.4) 09/16/23 00:17 Neut % (Auto) 69.2 % 09/16/23 00:17 Lymph % (Auto) 8.5 % 09/16/23 00:17 [place] % (Auto) 9.3 % 09/16/23 00:17 Eos % (Auto) 11.6 % 09/16/23 00:17 Baso % (Auto) 1.2 % 09/16/23 00:17 Neut # (Auto) 3.41 10^3/uL (1.8-7.7) 09/16/23 00:17 Lymph # (Auto) 0.4 10^3/uL (0.8-4.8) L 09/16/23 00:17 [place] # (Auto) 0.5 10^3/uL (0.2-0.9) 09/16/23 00:17 Eos # (Auto) 0.6 10^3/uL (0.0-0.8) 09/16/23 00:17 Baso # (Auto) 0.1 10^3/uL (0.0-0.1) 09/16/23 00:17 Nucleated RBC % (auto) 0 % 09/16/23 00:17 Nucleated RBCs # 0.0 /100WBC 09/16/23 00:17 Sodium 137 mmol/L (136-145) 09/16/23 00:17 Potassium 3.8 mmol/L (3.5-5.1) 09/16/23 00:17 Chloride 95 mmol/L (98-107) L 09/16/23 00:17 Carbon Dioxide 30 mmol/L (22-29) H 09/16/23 00:17 Anion Gap 15.8 (5-19) 09/16/23 00:17 BUN 17 mg/dL (6-20) 09/16/23 00:17 Creatinine 4.1 mg/dL (0.7-1.2) H 09/16/23 00:17 GFR Calculation 16.2 mL/min (90-130) L 09/16/23 00:17 Glucose 106 mg/dL (65-115) 09/16/23 00:17 Calculated Osmolality 286 mOsm/kg (285-295) 09/16/23 00:17 Calcium 10.1 mg/dL (8.5-10.5) 09/16/23 00:17 Total Bilirubin 0.6 mg/dL (0.15-1.2) 09/16/23 00:17 AST 19 U/L (0-40) 09/16/23 00:17 ALT 7 U/L (0-41) 09/16/23 00:17 Alkaline Phosphatase 133 U/L (40-130) H 09/16/23 00:17 Total Protein 7.1 g/dL (6.6-8.7) 09/16/23 00:17 Albumin 3.5 g/dL (3.5-5.2) 09/16/23 00:17 Globulin 3.6 g/dL (1.3-4.6) 09/16/23 00:17 No radiology studies performed this visit Discharge Plan Discharge Patient Disposition: Home Clinical Impression: Abdominal pain Qualifiers: Abdominal location: unspecified location Qualified Code(s): R10.9 - Unspecified abdominal pain Condition: Stable Prescriptions: No Action (DME) DME - BIPAP See Rx Instructions .Route .MEDSUPPLY Qty: 1 0RF Rx Instructions: Inspiratory Pressure: 16mmHg Expiratory Pressure: 8 mmHg Will need oxygen bled in to the machine to maintain sats >/= 90%. (DME) DME - Oxygen See Rx Instructions .Route .MEDSUPPLY Qty: 1 0RF Rx Instructions: Supplemental Oxygen bled into BIPAP at 2-3L to maintain oxygen sats at >/= 90%. Auryxia 210 mg iron Tablet See Rx Instructions .ROUTE .COMPLEX Rx Instructions: 420 mg (2 tabs) orally three times a day and 210mg (1 tab) with snacks aspirin 81 mg tablet,delayed release (DR/EC) 81 mg PO QAM pantoprazole 40 mg tablet,delayed release (DR/EC) 40 mg PO BEDTIME isosorbide mononitrate 120 mg tablet extended release 24 hr 240 mg PO QAM RenaPlex-D 800 mcg-12.5 mg -2,000 unit tablet 1 tab PO QAM carvedilol 25 mg tablet 37.5 mg PO Q12H atorvastatin 40 mg tablet 40 mg PO BEDTIME amlodipine 10 mg tablet 10 mg PO QAM hydralazine 100 mg tablet 100 mg PO Q8H prasugrel 10 mg tablet 10 mg PO QAM clonidine 0.2 mg/24 hr patch weekly 1 patch topical .WKLY minoxidil 2.5 mg tablet 10 mg PO TID albuterol sulfate 90 mcg/actuation Hfa Aerosol Inhaler 2 puff INHALATION QID PRN (Reason: Shortness Of Breath) hydrocodone-acetaminophen 5-325 mg tablet 1 tab PO Q8H PRN (Reason: pain) Qty: 10 0RF ondansetron 4 mg tablet,disintegrating 4 mg PO Q8H PRN (Reason: nausea and vomiting) Qty: 10 0RF Discharge Orders: Discharge ED (Routine); Ordered 09/16/23 Ordered By: Dayana Nunez Referrals: Mal Junior [Primary Care Provider] - Discharge Diet: Advance as tolerated Discharge Activity: Resume usual activity Patient Instructions: Abdominal Pain (ED) Coding Level of Care Code ED Transit Department Clerk for Cristi Diane
[2023-09-16 00:33] LABS: Basophils # 0.1 10^3/uL (0.0-0.1); Basophils % 1.2 %; Eosinophils # 0.6 10^3/uL (0.0-0.8); Eosinophils % 11.6 %; Hematocrit 31.4 % (37-53); Lymphocytes # 0.4 10^3/uL (0.8-4.8); Lymphocytes % 8.5 %; Mean Corpuscular HGB Conc 32.2 g/dL (30-55); Mean Corpuscular Hemoglobin 27.7 pg (27-33); Mean Corpuscular Volume 86.3 fl (82-101); Mean Platelet Volume 8.8 fL (7.4-10.4); Monocytes # 0.5 10^3/uL (0.2-0.9); Monocytes % 9.3 %; Neutrophils # 3.41 10^3/uL (1.8-7.7); Neutrophils % 69.2 %; Nucleated Red Blood Cells % 0 %; Platelet Count 181 10^3/cmm (157-399); Red Blood Count 3.64 10^6/uL (3.85-5.65); Red Cell Distribution Width 18.3 % (12.1-15.1); White Blood Count 4.93 10^3/uL (3.29-11.43)
[2023-09-16 00:47] VITALS: O2SAT 93
[2023-09-16 00:51] LABS: Alanine Aminotransferase 7 U/L (0-41); Albumin Level 3.5 g/dL (3.5-5.2); Alkaline Phosphatase 133 U/L (40-130); Anion Gap 15.8 (5-19); Aspartate Amino Transferase 19 U/L (0-40); Blood Urea Nitrogen 17 mg/dL (6-20); Calcium 10.1 mg/dL (8.5-10.5); Carbon Dioxide 30 mmol/L (22-29); Chloride 95 mmol/L (98-107); Globulin 3.6 g/dL (1.3-4.6); Glomerular Filtration Rate 16.2 mL/min (90-130); Glucose 106 mg/dL (65-115); Osmolality Calculated 286 mOsm/kg (285-295); Potassium 3.8 mmol/L (3.5-5.1); Sodium 137 mmol/L (136-145); Total Bilirubin 0.6 mg/dL (0.15-1.2); Total Protein 7.1 g/dL (6.6-8.7)
[2023-09-16 00:56] LABS: Creatinine Clr Calc Pharmacy 27.5777
[2023-09-16 01:13] VITALS: PULSE 79; RESP 18; O2SAT 79
== END 2023-09-16 01:16 | disposition home or self-care (01) ==
PROVIDERS: Emergency Provider Emergency Medicine; PCP Family Medicine
DX: G89.29 Other chronic pain (principal); R10.9 Unspecified abdominal pain; Z79.82 Long term (current) use of aspirin; K40.90 Unilateral inguinal hernia, without obstruction or gangrene, not specified as recurrent; F17.210 Nicotine dependence, cigarettes, uncomplicated; I13.2 Hypertensive heart and chronic kidney disease with heart failure and with stage 5 chronic kidney disease, or end stage renal disease; N18.6 End stage renal disease; I50.9 Heart failure, unspecified; Z99.2 Dependence on renal dialysis; I25.10 Atherosclerotic heart disease of native coronary artery without angina pectoris; Z95.5 Presence of coronary angioplasty implant and graft; J44.9 Chronic obstructive pulmonary disease, unspecified
CPT/HCPCS: 36415; 80053; 85025; 96372; 99284; J2270; J2405

== ENCOUNTER 2023-09-16 12:57 | Day surgery (SDC) | payer MEDICARE, MEDICAID, SELFPAY ==
--- NOTE | 2023-09-16 13:02 | US_ITS ---
WS: [id number] ULTRASOUND-GUIDED THERAPEUTIC AND DIAGNOSTIC PARACENTESIS Procedure, risks, and complications have been explained to the patient. Consent is obtained. Utilizing aseptic technique and 1% buffered lidocaine, a small dermatome was made through which a 5 F rench Yueh catheter was inserted. Approximately 2400 ml of clear peritoneal fluid was obtained witho ut difficulty. No complications encountered. Fluid collected for analysis as requested. US/US paracentesis abd w [id number] IMPRESSION: Uncomplicated paracentesis yielding 2400 ml of peritoneal fluid.
[2023-09-16 13:07] VITALS: BP 181/101; PULSE 88; RESP 18; TEMP 37.2; O2SAT 94
[2023-09-16 14:50] LABS: Albumin Body Fluid 2.5 g/dL; Total Protein Body Fluid 4.3 g/dL
[2023-09-16 14:51] LABS: Cyto Order Verification Order Verified
== END 2023-09-16 14:36 | disposition home or self-care (01) ==
PROVIDERS: Radiology Diagnostic Radiology; PCP Family Medicine; Visit Provider Internal Medicine
PROC: (CPT 49082; principal; 2023-09-16 13:30)
DX: R18.8 Other ascites (principal); K74.60 Unspecified cirrhosis of liver
CPT/HCPCS: 49083; 82042; 84157; 87070; 87075; 87205; 88112

== ENCOUNTER 2023-09-17 16:11 | Emergency (ER) | payer MEDICARE, MEDICAID, SELFPAY ==
[2023-09-17 16:21] VITALS: BP 137/75; PULSE 78; RESP 16; TEMP 36.9; O2SAT 91
--- NOTE | 2023-09-17 16:31 | XRR_ITS ---
PROCEDURE INFORMATION: Exam: XR Chest Exam date and time: 09/17/2023 4:39 PM Age: 43 years old Clinical indication: Cough and dyspnea; Additional info: Dyspnea/cough TECHNIQUE: Imaging protocol: Radiologic exam of the chest. Views: 1 view. COMPARISON: 1. CT abdomen pelvis wo con [id number] 09/18/2023 4:23 AM 2. CR XR chest 1V portable [id number] 08/03/2023 2:15 AM FINDINGS: Lungs: Minimal/subtle hazy interstitial pulmonary edema. No consolidation. Pleural spaces: No significant costophrenic angle blunting. No pneumothorax. Heart/Mediastinum: Enlarged cardiopericardial silhouette. Bones/joints: No acute osseous abnormality. XR/XR chest 1V portable [id number] IMPRESSION: 1. Enlarged cardiopericardial silhouette consistent with combination of cardiomegaly and pericardial effusion. 2. Minimal/subtle hazy interstitial pulmonary edema.
--- NOTE | 2023-09-17 17:12 | W.ED.ABDPA2 ---
HPI - Abdominal Pain General: Chief Complaint: Abdominal Pain Stated Complaint: groin pain Time Seen by Provider: 09/17/23 16:28 Source: patient Mode of arrival: ambulatory Limitations: no limitations History of Present Illness: 43-year-old male is very well-known to the ER is got chronic abdominal pain with a right inguinal hernia he has been seen here multiple times this week 40 states his pain is currently 6 out of 10 states he does not need pain meds at home and sees a new primary care doctor on Thursday he denies any fever denies any vomiting. Associated Symptoms: Denies chills, diarrhea, fever(s), nausea and vomiting Review of Systems Const: Denies: fever(s), chills, body aches or change in appetite ENMT: Denies: throat pain or dental pain Card: Denies: chest pain Resp: Denies: dyspnea GI: Reports: abdominal pain; Denies: nausea, vomiting or diarrhea Musc: Denies: neck pain or back pain Skin/Breast: Denies: rash Neuro: Denies: headache(s) PFSH ED PFSH: Medical History Acute and chronic respiratory failure with hypoxia Patient under care of multiple providers Hypertensive urgency History of cardiovascular stress test 07/2022 at [facility] perfusion imaging probably normal, no reversible defects, small fixed defect in apical anterior wall, EF 54%, nonischemic response to stress by EKG criteria Depression Epididymitis 06/2022 Pulmonary hypertension Uses bilevel positive airway pressure (BPAP) ventilation at home Umbilical hernia History of home oxygen therapy History of coronary angiogram 11/2021 - patent stent Inguinal hernia Anxiety Chronic respiratory failure on home oxygen and bipap Low back pain Nicotine dependence, cigarettes, with other nicotine-induced disorders Generalized anxiety disorder with panic attacks ESRD on dialysis Atherosclerosis of coronary artery Stent and balloon angioplasty to proximal 1 OM branch Chronic abdominal pain COVID 05/25 Hypertensive emergency recurrent episodes Urethral stricture Abdominal ascites history of intermittent paracentesis, transudative fluid; prior work up has included negative biopsy, ceruloplasmin level normal, low iron, high ferritin, normal TIBC, negative HIV, hepatitis panel negative, JESÚS/SCL 70/double-stranded DNA antibodies negative, Alpha-fetoprotein level unremarkable, nonalcoholic by history, has hepatomegaly and splenomegaly Pulmonary embolism 05/21 CTA inconclusive for very tiny peripheral LEFT lower lobe pulmonary artery sub segmental emboli versus poor opacification. Anemia chronic kidney disease Congestive heart failure preserved ejection fraction COPD (chronic obstructive pulmonary disease) Arteriovenous fistula for hemodialysis in place, secondary Degenerative disc disease, lumbar Hypertension uncontrolled Surgical History Stented coronary artery H/O hand surgery Amputation right 2&3 fingers 2017 History of adenoidectomy Family History Other Hypertension Social History Smoking and tobacco/nicotine status: current every day tobacco/nicotine user cigarettes Packs smoked per day: 1.5 Years cigarettes smoked: 21 [ Other cigarette details: started age 20, currently 0.5ppd ] Alcohol intake: never Substance/Drug Use: never Number of children: 3 Current occupational status: disabled Do you think of yourself as: Straight/Heterosexual Physical Exam Const: COMMON NORMALS: no acute distress, patient oriented x3 and healthy appearing HENMT: COMMON NORMALS: normocephalic and atraumatic HEAD & SCALP: normocephalic and atraumatic Neck/C-Spine: COMMON NORMALS: full ROM and supple Chest: COMMONS NORMALS: normal inspection of the chest Resp: COMMON NORMALS: normal respiratory effort Cardio: COMMON NORMALS: regular rate RATE: regular rate GI: COMMON NORMALS: Soft to palpation and no masses PALPATION: Yes Soft to palpation OTHER: Right inguinal hernia noted with tenderness no signs of strangulation Extremity: COMMON NORMALS: normal to inspection and full ROM Neuro: COMMON NORMALS: patient oriented x3, moves all extremities and no focal motor deficits Psych: COMMON NORMALS: mental status grossly normal, Normal thought process present and cooperative THOUGHT PROCESS: Normal thought process present Skin: COMMON NORMALS: no rashes or lesions noted and no wounds GENERAL SKIN EXAM: no rashes or lesions noted Course Vital Signs: Vital signs: Vital Signs Temperature 98.4 F 09/17/23 16:21 Pulse Rate 72 09/17/23 17:27 Respiratory Rate 16 09/17/23 16:21 Blood Pressure 130/73 09/17/23 17:27 Pulse Oximetry 97 09/17/23 17:27 Oxygen Delivery Me thod Room Air 09/17/23 16:21 MDM - Abdominal Pain Medical Decision Making Patient presents for abdominal pain is chronic in nature exam here is benign he had blood work drawn recently is normal he stable for discharge follow-up with PCP on Thursday as scheduled return if worsening Medical Records I reviewed the patient's medical records. No radiology studies performed this visit Discharge Plan Discharge Patient Disposition: Home Clinical Impression: Hernia, inguinal, right Abdominal pain Qualifiers: Abdominal location: unspecified location Qualified Code(s): R10.9 - Unspecified abdominal pain Condition: Stable Prescriptions: No Action (DME) DME - BIPAP See Rx Instructions .Route .MEDSUPPLY Qty: 1 0RF Rx Instructions: Inspiratory Pressure: 16mmHg Expiratory Pressure: 8 mmHg Will need oxygen bled in to the machine to maintain sats >/= 90%. (DME) DME - Oxygen See Rx Instructions .Route .MEDSUPPLY Qty: 1 0RF Rx Instructions: Supplemental Oxygen bled into BIPAP at 2-3L to maintain oxygen sats at >/= 90%. Auryxia 210 mg iron Tablet See Rx Instructions .ROUTE .COMPLEX Rx Instructions: 420 mg (2 tabs) orally three times a day and 210mg (1 tab) with snacks aspirin 81 mg tablet,delayed release (DR/EC) 81 mg PO QAM pantoprazole 40 mg tablet,delayed release (DR/EC) 40 mg PO BEDTIME isosorbide mononitrate 120 mg tablet extended release 24 hr 240 mg PO QAM RenaPlex-D 800 mcg-12.5 mg -2,000 unit tablet 1 tab PO QAM carvedilol 25 mg tablet 37.5 mg PO Q12H atorvastatin 40 mg tablet 40 mg PO BEDTIME amlodipine 10 mg tablet 10 mg PO QAM hydralazine 100 mg tablet 100 mg PO Q8H prasugrel 10 mg tablet 10 mg PO QAM clonidine 0.2 mg/24 hr patch weekly 1 patch topical .WKLY minoxidil 2.5 mg tablet 10 mg PO TID albuterol sulfate 90 mcg/actuation Hfa Aerosol Inhaler 2 puff INHALATION QID PRN (Reason: Shortness Of Breath) hydrocodone-acetaminophen 5-325 mg tablet 1 tab PO Q8H PRN (Reason: pain) Qty: 10 0RF ondansetron 4 mg tablet,disintegrating 4 mg PO Q8H PRN (Reason: nausea and vomiting) Qty: 10 0RF Discharge Orders: Discharge ED (Routine); Ordered 09/17/23 Ordered By: Dayana Nunez Referrals: Mal Junior [Primary Care Provider] - Discharge Diet: Advance as tolerated Discharge Activity: Resume usual activity Patient Instructions: Abdominal Pain (ED) Coding Level of Care Code ED [employer] Specialist for Cristi Diaen
[2023-09-17] MEDS: HYDROcodone-acetaminophen 7.5-325 mg Tablet 1 TAB PO (17:25)
[2023-09-17 17:27] VITALS: BP 130/73; PULSE 72; O2SAT 97
== END 2023-09-17 17:29 | disposition home or self-care (01) ==
PROVIDERS: Emergency Provider Emergency Medicine; PCP Family Medicine
DX: R10.9 Unspecified abdominal pain (principal); K40.90 Unilateral inguinal hernia, without obstruction or gangrene, not specified as recurrent; F17.210 Nicotine dependence, cigarettes, uncomplicated; I13.2 Hypertensive heart and chronic kidney disease with heart failure and with stage 5 chronic kidney disease, or end stage renal disease; N18.6 End stage renal disease; I50.9 Heart failure, unspecified; Z99.2 Dependence on renal dialysis; Z79.899 Other long term (current) drug therapy
CPT/HCPCS: 71045; 99283

== ENCOUNTER 2023-09-18 03:55 | Emergency (ER) | payer MEDICARE, MEDICAID, SELFPAY ==
[2023-09-18 04:00] VITALS: BP 167/88; PULSE 86; RESP 16; TEMP 36.8; O2SAT 94; BMI 25.7
[2023-09-18] MEDS: diphenhydrAMINE 50 mg/mL SDV 1mL IM (04:05)
[2023-09-18] MEDS: metoclopramide 5 mg/mL SDV 2 mL 10 MG IM (04:05)
--- NOTE | 2023-09-18 04:08 | CTR_ITS ---
PROCEDURE INFORMATION: Exam: CT Abdomen And Pelvis Without Contrast Exam date and time: 09/18/2023 4:23 AM Age: 43 years old Clinical indication: Abdominal pain; Additional info: Abd pain TECHNIQUE: Imaging protocol: Computed tomography of the abdomen and pelvis without contrast. Radiation optimization: All CT scans at this facility use at least one of these dose optimization techniques: automated exposure control; mA and/or kV adjustment per patient size (includes targeted exams where dose is matched to clinical indication); or iterative reconstruction. COMPARISON: [place] [id number] 07/20/2023 10:41 AM RADIATION DOSE METRICS: Total DLP (mGy-cm): 923.57 FINDINGS: Lungs: Mild interstitial pulmonary edema. Right lower lobe calcified granulomas. Pleural spaces: No significant pleural effusions. Heart: Cardiomegaly and pericardial effusion measuring up to 14 mm in thickness posteriorly. Calcified mitral annulus. Coronary arteries: Coronary artery calcifications. Liver: Prominent liver with diffusely nodular hepatic appearance and contour consistent with cirrhosis. Gallbladder and bile ducts: Small contracted gallbladder. No biliary ductal dilatation. Pancreas: No acute abnormality. No ductal dilation. Spleen: Prominent spleen measuring 15 cm in length. Adrenal glands: No significant or acute abnormality. Kidneys and ureters: Small atrophic kidneys consistent with chronic renal insufficiency. New 12 mm intermediate density right renal lower pole cortical lesion suspicious for possible small right renal mass. Stomach and bowel: Ingested contents within stomach. No significant or disproportionate large or small bowel distention. Moderate amount of stool within the colon. No evidence of diverticulitis. Appendix: Grossly normal nondilated visualized appendix. Intraperitoneal space: Very large diffuse ascites. No free air. Vasculature: Vascular patency cannot be assessed on noncontrast imaging. Prominent IVC and hepatic veins. Diffuse atherosclerotic vascular calcification. No aortic aneurysm. Lymph nodes: Bilateral inguinal lymphadenopathy and mild pelvic and retroperitoneal lymphadenopathy. Urinary bladder: Nondistended decompressed urinary bladder. Reproductive: Redemonstrated prominent right inguinal hernia containing fluid extending inferiorly into the right scrotum. Approximately 9 x 8 x 11 cm enlarged right testis with multiple septations and central fluid attenuation. Bilateral scrotal hydroceles and diffuse scrotal edema. Bones/joints: Bilateral L5 spondylolysis with mild anterolisthesis. Soft tissues: Approximately 4 cm protuberant umbilical hernia containing ascites and fat. Diffuse anasarca. CT/CT abdomen pelvis wo con [id number] IMPRESSION: 1. Cardiomegaly, pericardial effusion measuring up to 14 mm in thickness and mild interstitial pulmonary edema. 2. Hepatosplenomegaly and hepatic cirrhosis. A component of passive hepatic congestion may also be present. 3. Very large diffuse ascites. 4. Small atrophic kidneys consistent with chronic renal insufficiency. 5. New 12 mm intermediate density right renal lower pole cortical lesion suspicious for possible small right renal mass. 6. Redemonstrated prominent right inguinal hernia containing ascites fluid extending inferiorly into the right scrotum. 7. Approximately 9 x 8 x 11 cm enlarged right testis with multiple septations and central fluid attenuation. Differential diagnosis includes enlarged necrotic right testis secondary to chronic testicular torsion versus infiltrating necrotic testicular mass. 8. Bilateral scrotal hydroceles and diffuse scrotal edema. 9. Bilateral inguinal lymphadenopathy and mild pelvic and retroperitoneal lymphadenopathy. 10. Approximately 4 cm protuberant umbilical hernia containing ascites and fat as well as diffuse anasarca. 11. Atherosclerotic vascular disease including coronary artery disease.
--- NOTE | 2023-09-18 04:09 | ED.C_ITS ---
Documented by User: Ravindra Nunez MD 09/18/23 05:32 HPI - Psych 2 General: Chief Complaint: Abdominal Pain Stated Complaint: ABD Pain Time Seen by Provider: 09/18/23 03:58 Source: patient Mode of arrival: ambulatory Limitations: no limitations History of Present Illness: 43-year-old male has a history of chroni c abdominal pain from hernia along with ascites states he has been having increasing pain in his right groin and abdomen. Patient states pain sharp in nature he rates it a 7 out of 10 he states that he is also suicidal he does not want to live this anymore he states he does have a plan but will not tell me his plan. Associated symptoms: Reports depression and suicidal ideation Review of Systems 2 Const: Denies: fever(s), chills, body aches or change in appetite ENMT: Denies: throat pain or dental pain Card: Denies: chest pain Resp: Denies: dyspnea GI: Reports: abdominal pain; Denies: nausea, vomiting or diarrhea : Denies: dysuria Musc: Denies: neck pain or back pain Skin/Breast: Denies: rash Neuro: Denies: headache(s) Psych: Reports: depression and suicidal ideation PFSH ED 2 PFSH: Medical History Acute and chronic respiratory failure with hypoxia Patient under care of multiple providers Hypertensive urgency History of cardiovascular stress test 07/2022 at [facility] perfusion imaging probably normal, no reversible defects, small fixed defect in apical anterior wall, EF 54%, nonischemic response to stress by EKG criteria Depression Epididymitis 06/2022 Pulmonary hypertension Uses bilevel positive airway pressure (BPAP) ventilation at home Umbilical hernia History of home oxygen therapy History of coronary angiogram 11/2021 - patent stent Inguinal hernia Anxiety Chronic respiratory failure on home oxygen and bipap Low back pain Nicotine dependence, cigarettes, with other nicotine-induced disorders Generalized anxiety disorder with panic attacks ESRD on dialysis Atherosclerosis of coronary artery Stent and balloon angioplasty to proximal 1 OM branch Chronic abdominal pain COVID 05/25 Hypertensive emergency recurrent episodes Urethral stricture Abdominal ascites history of intermittent paracentesis, transudative fluid; prior work up has included negative biopsy, ceruloplasmin level normal, low iron, high ferritin, normal TIBC, negative HIV, hepatitis panel negative, JESÚS/SCL 70/double-stranded DNA antibodies negative, Alpha-fetoprotein level unremarkable, nonalcoholic by history, has hepatomegaly and splenomegaly Pulmonary embolism 09/21 CTA inconclusive for very tiny peripheral LEFT lower lobe pulmonary artery sub segmental emboli versus poor opacification. Anemia chronic kidney disease Congestive heart failure preserved ejection fraction COPD (chronic obstructive pulmonary disease) Arteriovenous fistula for hemodialysis in place, secondary Degenerative disc disease, lumbar Hypertension uncontrolled Surgical History Stented coronary artery H/O hand surgery Amputation right 2&3 fingers 2017 History of adenoidectomy Family History Other Hypertension Social History Smoking and tobacco/nicotine status: current every day tobacco/nicotine user cigarettes Packs smoked per day: 1.5 Years cigarettes smoked: 21 [ Other cigarette details: started age 20, currently 0.5ppd ] Alcohol intake: never Substance/Drug Use: never Number of children: 3 Current occupational status: disabled Do you think of yourself as: Straight/Heterosexual Physical Exam 2 Const: COMMON NORMALS: patient oriented x3 HENMT: COMMON NORMALS: normocephalic and atraumatic HEAD & SCALP: n ormocephalic and atraumatic Eye: COMMON NORMALS: conjunctivae normal CONJUNCTIVA: Yes conjunctivae normal Neck/C-Spine: COMMON NORMALS: full ROM and supple Chest: COMMONS NORMALS: normal inspection of the chest Resp: COMMON NORMALS: normal respiratory effort Cardio: COMMON NORMALS: regular rate, regular rhythm and No murmurs present (Cardio) RATE: regular rate RHYTHM: regular rhythm GI: OTHER: Distended abdomen with right inguinal hernia slight tenderness diffusely : OTHER: Large right inguinal hernia noted Extremity: COMMON NORMALS: normal to inspection and full ROM Neuro: COMMON NORMALS: patient oriented x3, moves all extremities and no focal motor deficits Psych: COMMON NORMALS: mental status grossly normal, Normal thought process present and cooperative THOUGHT PROCESS: Normal thought process present T HOUGHT CONTENT: Yes Suicidality present Skin: COMMON NORMALS: no rashes or lesions noted and no wounds GENERAL SKIN EXAM: no rashes or lesions noted Course 2 Vital Signs: Vital signs: Vital Signs Temperature 98.2 F 09/18/23 04:00 Pulse Rate 86 05/17/24 05:42 Respiratory Rate 20 H 09/18/23 05:42 Blood Pressure 167/88 09/18/23 04:00 Pulse Oximetry 96 09/18/23 05:42 Oxygen Delivery Me thod Nasal Cannula 09/18/23 05:42 Oxygen Flow Rate 4 09/18/23 05:42 MDM - Psych Lab Data 09/18/23 04:06 09/18/23 04:06 Radiology Impressions Abdomen/Pelvis CT 09/18/23 04:08 IMPRESSION: 1. Cardiomegaly, pericardial effusion measuring up to 14 mm in thickness and mild interstitial pulmonary edema. 2. Hepatosplenomegaly and hepatic cirrhosis. A component of passive hepatic congestion may also be present. 3. Very large diffuse ascites. 4. Small atrophic kidneys consistent with chronic renal insufficiency. 5. New 12 mm intermediate density right renal lower pole cortical lesion suspicious for possible small right renal mass. 6. Redemonstrated prominent right inguinal hernia containing ascites fluid extending inferiorly into the right scrotum. 7. Approximately 9 x 8 x 11 cm enlarged right testis with multiple septations and central fluid attenuation. Differential diagnosis includes enlarged necrotic right testis secondary to chronic testicular torsion versus infiltrating necrotic testicular mass. 8. Bilateral scrotal hydroceles and diffuse scrotal edema. 9. Bilateral inguinal lymphadenopathy and mild pelvic and retroperitoneal lymphadenopathy. 10. Approximately 4 cm protuberant umbilical hernia containing ascites and fat as well as diffuse anasarca. 11. Atherosclerotic vascular disease including coronary artery disease. ADDENDUM: 09/18/23 0523 THIS REPORT CONTAINS FINDINGS THAT MAY BE CRITICAL TO PATIENT CARE. The findings were verbally communicated via telephone conference with RAVINDRA Williamson at 5:16 AM CDT on 09/18/2023. The findings were acknowledged and understood. Laboratory Results WBC 5.29 10^3/uL (3.29-11.43) 09/18/23 04:06 RBC 3.78 10^6/uL (3.85-5.65) L 09/18/23 04:06 Hgb 10.40 g/dL (11.27-16.99) L 09/18/23 04:06 Hct 32.6 % (37-53) L 09/18/23 04:06 MCV 86.2 fl (82-101) 09/18/23 04:06 MCH 27.5 pg (27-33) 09/18/23 04:06 MCHC 31.9 g/dL (30-55) 09/18/23 04:06 RDW 18.0 % (12.1-15.1) H 09/18/23 04:06 Plt Count 208 10^3/cmm (157-399) 09/18/23 04:06 MPV 9.5 fL (7.4-10.4) 09/18/23 04:06 Neut % (Auto) 64.2 % 09/18/23 04:06 Lymph % (Auto) 11.0 % 09/18/23 04:06 Bonner % (Auto) 9.5 % 09/18/23 04:06 Eos % (Auto) 13.8 % 09/18/23 04:06 Baso % (Auto) 1.3 % 09/18/23 04:06 Neut # (Auto) 3.40 10^3/uL (1.8-7.7) 09/18/23 04:06 Lymph # (Auto) 0.6 10^3/uL (0.8-4.8) L 09/18/23 04:06 Bonner # (Auto) 0.5 10^3/uL (0.2-0.9) 09/18/23 04:06 Eos # (Auto) 0.7 10^3/uL (0.0-0.8) 09/18/23 04:06 Baso # (Auto) 0.1 10^3/uL (0.0-0.1) 09/18/23 04:06 Nucleated RBC % (auto) 0 % 09/18/23 04:06 Nucleated RBCs # 0.0 /100WBC 09/18/23 04:06 Sodium 134 mmol/L (136-145) L 09/18/23 04:06 Potassium 4.0 mmol/L (3.5-5.1) 09/18/23 04:06 Chloride 92 mmol/L (98-107) L 09/18/23 04:06 Carbon Dioxide 30 mmol/L (22-29) H 09/18/23 04:06 Anion Gap 16.0 (5-19) 09/18/23 04:06 BUN 20 mg/dL (6-20) 09/18/23 04:06 Creatinine 4.5 mg/dL (0.7-1.2) H 09/18/23 04:06 GFR Calculation 14.5 mL/min (90-130) L 09/18/23 04:06 Glucose 96 mg/dL (65-115) 09/18/23 04:06 Calculated Osmolality 280 mOsm/kg (285-295) L 09/18/23 04:06 Calcium 10.6 mg/dL (8.5-10.5) H 09/18/23 04:06 Total Bilirubin 0.5 mg/dL (0.15-1.2) 09/18/23 04:06 AST 15 U/L (0-40) 09/18/23 04:06 ALT 8 U/L (0-41) 09/18/23 04:06 Alkaline Phosphatase 156 U/L (40-130) H 09/18/23 04:06 Total Protein 7.7 g/dL (6.6-8.7) 09/18/23 04:06 Albumin 3.7 g/dL (3.5-5.2) 09/18/23 04:06 Globulin 4.0 g/dL (1.3-4.6) 09/18/23 04:06 Salicylates < 0.3 mg/dL (3-10) L 09/18/23 04:06 Acetaminophen < 5.0 ug/mL (10-30) L 09/18/23 04:06 Ethyl Alcohol < 10 mg/dL (0-10) 09/18/23 04:06 Discharge Plan Discharge Patient Disposition: Transfer to ED Clinical Impression: Abnormal radiologic findings on diagnostic imaging of right testicle, Abdominal pain, End-stage renal disease on hemodialysis, Suicidal ideation Condition: Stable Prescriptions: No Action (DME) DME - BIPAP See Rx Instructions .Route .MEDSUPPLY Qty: 1 0RF Rx Instructions: Inspiratory Pressure: 16mmHg Expiratory Pressure: 8 mmHg Will need oxygen bled in to the machine to maintain sats >/= 90%. (DME) DME - Oxygen See Rx Instructions .Route .MEDSUPPLY Qty: 1 0RF Rx Instructions: Supplemental Oxygen bled into BIPAP at 2-3L to maintain oxygen sats at >/= 90%. Auryxia 210 mg iron Tablet See Rx Instructions .ROUTE .COMPLEX Rx Instructions: 420 mg (2 tabs) orally three times a day and 210mg (1 tab) with snacks aspirin 81 mg tablet,delayed release (DR/EC) 81 mg PO QAM pantoprazole 40 mg tablet,delayed release (DR/EC) 40 mg PO BEDTIME isosorbide mononitrate 120 mg tablet extended release 24 hr 240 mg PO QAM RenaPlex-D 800 mcg-12.5 mg -2,000 unit tablet 1 tab PO QAM carvedilol 25 mg tablet 37.5 mg PO Q12H atorvastatin 40 mg tablet 40 mg PO BEDTIME amlodipine 10 mg tablet 10 mg PO QAM hydralazine 100 mg tablet 100 mg PO Q8H prasugrel 10 mg tablet 10 mg PO QAM clonidine 0.2 mg/24 hr patch weekly 1 patch topical .WKLY minoxidil 2.5 mg tablet 10 mg PO TID albuterol sulfate 90 mcg/actuation Hfa Aerosol Inhaler 2 puff INHALATION QID PRN (Reason: Shortness Of Breath) hydrocodone-acetaminophen 5-325 mg tablet 1 tab PO Q8H PRN (Reason: pain) Qty: 10 0RF ondansetron 4 mg tablet,disintegrating 4 mg PO Q8H PRN (Reason: nausea and vomiting) Qty: 10 0RF Referrals: Delio Salazar MD [Primary Care Provider] - Patient Instructions: Abdominal Pain (ED) Coding Level of Care Code ED Health Worker for Chg Fwd Documented by User: Pato Rivera DO 09/18/23 06:06 HPI - Psych 2 General: Chief Complaint: Abdominal Pain Stated Complaint: ABD Pain Time Seen by Provider: 09/18/23 03:58 PFSH ED 2 PFSH: Medical History Acute and chronic respiratory failure with hypoxia Patient under care of multiple providers Hypertensive urgency History of cardiovascular stress test 07/2022 at [facility] perfusion imaging probably normal, no reversible defects, small fixed defect in apical anterior wall, EF 54%, nonischemic response to stress by EKG criteria Depression Epididymitis 06/2022 Pulmonary hypertension Uses bilevel positive airway pressure (BPAP) ventilation at home Umbilical hernia History of home oxygen therapy History of coronary angiogram 11/2021 - patent stent Inguinal hernia Anxiety Chronic respiratory failure on home oxygen and bipap Low back pain Nicotine dependence, cigarettes, with other nicotine-induced disorders Generalized anxiety disorder with panic attacks ESRD on dialysis Atherosclerosis of coronary artery Stent and balloon angioplasty to proximal 1 OM branch Chronic abdominal pain COVID 05/25 Hypertensive emergency recurrent episodes Urethral stricture Abdominal ascites history of intermittent paracentesis, transudative fluid; prior work up has included negative biopsy, ceruloplasmin level normal, low iron, high ferritin, normal TIBC, negative HIV, hepatitis panel negative, JESÚS/SCL 70/double-stranded DNA antibodies negative, Alpha-fetoprotein level unremarkable, nonalcoholic by history, has hepatomegaly and splenomegaly Pulmonary embolism 09/21 CTA inconclusive for very tiny peripheral LEFT lower lobe pulmonary artery sub segmental emboli versus poor opacification. Anemia chronic kidney disease Congestive heart failure preserved ejection fraction COPD (chronic obstructive pulmonary disease) Arteriovenous fistula for hemodialysis in place, secondary Degenerative disc disease, lumbar Hypertension uncontrolled Surgical History Stented coronary artery H/O hand surgery Amputation right 2&3 fingers 2017 History of adenoidectomy Family History Other Hypertension Social History Smoking and tobacco/nicotine status: current every day tobacco/nicotine user cigarettes Packs smoked per day: 1.5 Years cigarettes smoked: 21 [ Other cigarette details: started age 20, currently 0.5ppd ] Alcohol intake: never Substance/Drug Use: never Number of children: 3 Current occupational status: disabled Do you think of yourself as: Straight/Heterosexual Course 2 Vital Signs: Vital signs: Vital Signs Temperature 98.2 F 09/18/23 04:00 Pulse Rate 86 09/18/23 05:42 Respiratory Rate 20 H 09/18/23 05:42 Blood Pressure 167/88 09/18/23 04:00 Pulse Oximetry 96 09/18/23 05:42 Oxygen Delivery Me thod Nasal Cannula 09/18/23 05:42 Oxygen Flow Rate 4 09/18/23 05:42 MDM - Psych Medical Decision Making Care assumed at change of shift. Reviewed chart. Dr. Weldon seen the patient earlier CT showed a abnormal right testicle. Transfer line called back and stated that Dr. Love would except is an ER to ER transfer. Medical Records I reviewed the patient's medical records. Lab Data I reviewed the patient's lab results. 09/18/23 04:06 09/18/23 04:06 Radiology Impressions Abdomen/Pelvis CT 09/18/23 04:08 IMPRESSION: 1. Cardiomegaly, pericardial effusion measuring up to 14 mm in thickness and mild interstitial pulmonary edema. 2. Hepatosplenomegaly and hepatic cirrhosis. A component of passive hepatic congestion may also be present. 3. Very large diffuse ascites. 4. Small atrophic kidneys consistent with chronic renal insufficiency. 5. New 12 mm intermediate density right renal lower pole cortical lesion suspicious for possible small right renal mass. 6. Redemonstrated prominent right inguinal hernia containing ascites fluid extending inferiorly into the right scrotum. 7. Approximately 9 x 8 x 11 cm enlarged right testis with multiple septations and central fluid attenuation. Differential diagnosis includes enlarged necrotic right testis secondary to chronic testicular torsion versus infiltrating necrotic testicular mass. 8. Bilateral scrotal hydroceles and diffuse scrotal edema. 9. Bilateral inguinal lymphadenopathy and mild pelvic and retroperitoneal lymphadenopathy. 10. Approximately 4 cm protuberant umbilical hernia containing ascites and fat as well as diffuse anasarca. 11. Atherosclerotic vascular disease including coronary artery disease. ADDENDUM: 09/18/23 0523 THIS REPORT CONTAINS FINDINGS THAT MAY BE CRITICAL TO PATIENT CARE. The findings were verbally communicated via telephone conference with RAVINDRA Williamson at 5:16 AM CDT on 09/18/2023. The findings were acknowledged and understood. Laboratory Results WBC 5.29 10^3/uL (3.29-11.43) 09/18/23 04:06 RBC 3.78 10^6/uL (3.85-5.65) L 09/18/23 04:06 Hgb 10.40 g/dL (11.27-16.99) L 09/18/23 04:06 Hct 32.6 % (37-53) L 09/18/23 04:06 MCV 86.2 fl (82-101) 09/18/23 04:06 MCH 27.5 pg (27-33) 09/18/23 04:06 MCHC 31.9 g/dL (30-55) 09/18/23 04:06 RDW 18.0 % (12.1-15.1) H 09/18/23 04:06 Plt Count 208 10^3/cmm (157-399) 09/18/23 04:06 MPV 9.5 fL (7.4-10.4) 09/18/23 04:06 Neut % (Auto) 64.2 % 09/18/23 04:06 Lymph % (Auto) 11.0 % 09/18/23 04:06 Bonner % (Auto) 9.5 % 09/18/23 04:06 Eos % (Auto) 13.8 % 09/18/23 04:06 Baso % (Auto) 1.3 % 09/18/23 04:06 Neut # (Auto) 3.40 10^3/uL (1.8-7.7) 09/18/23 04:06 Lymph # (Auto) 0.6 10^3/uL (0.8-4.8) L 09/18/23 04:06 Bonner # (Auto) 0.5 10^3/uL (0.2-0.9) 09/18/23 04:06 Eos # (Auto) 0.7 10^3/uL (0.0-0.8) 09/18/23 04:06 Baso # (Auto) 0.1 10^3/uL (0.0-0.1) 09/18/23 04:06 Nucleated RBC % (auto) 0 % 09/18/23 04:06 Nucleated RBCs # 0.0 /100WBC 09/18/23 04:06 Sodium 134 mmol/L (136-145) L 09/18/23 04:06 Potassium 4.0 mmol/L (3.5-5.1) 09/18/23 04:06 Chloride 92 mmol/L (98-107) L 09/18/23 04:06 Carbon Dioxide 30 mmol/L (22-29) H 09/18/23 04:06 Anion Gap 16.0 (5-19) 09/18/23 04:06 BUN 20 mg/dL (6-20) 09/18/23 04:06 Creatinine 4.5 mg/dL (0.7-1.2) H 09/18/23 04:06 GFR Calculation 14.5 mL/min (90-130) L 09/18/23 04:06 Glucose 96 mg/dL (65-115) 09/18/23 04:06 Calculated Osmolality 280 mOsm/kg (285-295) L 09/18/23 04:06 Calcium 10.6 mg/dL (8.5-10.5) H 09/18/23 04:06 Total Bilirubin 0.5 mg/dL (0.15-1.2) 09/18/23 04:06 AST 15 U/L (0-40) 09/18/23 04:06 ALT 8 U/L (0-41) 09/18/23 04:06 Alkaline Phosphatase 156 U/L (40-130) H 09/18/23 04:06 Total Protein 7.7 g/dL (6.6-8.7) 09/18/23 04:06 Albumin 3.7 g/dL (3.5-5.2) 09/18/23 04:06 Globulin 4.0 g/dL (1.3-4.6) 09/18/23 04:06 Salicylates < 0.3 mg/dL (3-10) L 09/18/23 04:06 Acetaminophen < 5.0 ug/mL (10-30) L 09/18/23 04:06 Ethyl Alcohol < 10 mg/dL (0-10) 09/18/23 04:06 All radiology interpretation(s) finalized by discharge Discharge Plan Discharge Patient Disposition: Transfer to ED Clinical Impression: Abnormal radiologic findings on diagnostic imaging of right testicle, Abdominal pain, End-stage renal disease on hemodialysis, Suicidal ideation Condition: Stable Prescriptions: No Action (DME) DME - BIPAP See Rx Instructions .Route .MEDSUPPLY Qty: 1 0RF Rx Instructions: Inspiratory Pressure: 16mmHg Expiratory Pressure: 8 mmHg Will need oxygen bled in to the machine to maintain sats >/= 90%. (DME) DME - Oxygen See Rx Instructions .Route .MEDSUPPLY Qty: 1 0RF Rx Instructions: Supplemental Oxygen bled into BIPAP at 2-3L to maintain oxygen sats at >/= 90%. Auryxia 210 mg iron Tablet See Rx Instructions .ROUTE .COMPLEX Rx Instructions: 420 mg (2 tabs) orally three times a day and 210mg (1 tab) with snacks aspirin 81 mg tablet,delayed release (DR/EC) 81 mg PO QAM pantoprazole 40 mg tablet,delayed release (DR/EC) 40 mg PO BEDTIME isosorbide mononitrate 120 mg tablet extended release 24 hr 240 mg PO QAM RenaPlex-D 800 mcg-12.5 mg -2,000 unit tablet 1 tab PO QAM carvedilol 25 mg tablet 37.5 mg PO Q12H atorvastatin 40 mg tablet 40 mg PO BEDTIME amlodipine 10 mg tablet 10 mg PO QAM hydralazine 100 mg tablet 100 mg PO Q8H prasugrel 10 mg tablet 10 mg PO QAM clonidine 0.2 mg/24 hr patch weekly 1 patch topical .WKLY minoxidil 2.5 mg tablet 10 mg PO TID albuterol sulfate 90 mcg/actuation Hfa Aerosol Inhaler 2 puff INHALATION QID PRN (Reason: Shortness Of Breath) hydrocodone-acetaminophen 5-325 mg tablet 1 tab PO Q8H PRN (Reason: pain) Qty: 10 0RF ondansetron 4 mg tablet,disintegrating 4 mg PO Q8H PRN (Reason: nausea and vomiting) Qty: 10 0RF Referrals: Delio Salazar MD [Primary Care Provider] - Patient Instructions: Abdominal Pain (ED) Coding Level of Care Code ED Health Worker for Cristi Diane
[2023-09-18 04:12] LABS: Basophils # 0.1 10^3/uL (0.0-0.1); Basophils % 1.3 %; Eosinophils # 0.7 10^3/uL (0.0-0.8); Eosinophils % 13.8 %; Hematocrit 32.6 % (37-53); Lymphocytes # 0.6 10^3/uL (0.8-4.8); Mean Corpuscular HGB Conc 31.9 g/dL (30-55); Mean Corpuscular Hemoglobin 27.5 pg (27-33); Mean Corpuscular Volume 86.2 fl (82-101); Mean Platelet Volume 9.5 fL (7.4-10.4); Monocytes # 0.5 10^3/uL (0.2-0.9); Monocytes % 9.5 %; Neutrophils % 64.2 %; Nucleated Red Blood Cells % 0 %; Platelet Count 208 10^3/cmm (157-399); Red Blood Count 3.78 10^6/uL (3.85-5.65); White Blood Count 5.29 10^3/uL (3.29-11.43)
[2023-09-18 04:32] LABS: Alanine Aminotransferase 8 U/L (0-41); Albumin Level 3.7 g/dL (3.5-5.2); Alkaline Phosphatase 156 U/L (40-130); Aspartate Amino Transferase 15 U/L (0-40); Blood Urea Nitrogen 20 mg/dL (6-20); Calcium 10.6 mg/dL (8.5-10.5); Carbon Dioxide 30 mmol/L (22-29); Chloride 92 mmol/L (98-107); Glomerular Filtration Rate 14.5 mL/min (90-130); Glucose 96 mg/dL (65-115); Osmolality Calculated 280 mOsm/kg (285-295); Sodium 134 mmol/L (136-145); Total Bilirubin 0.5 mg/dL (0.15-1.2); Total Protein 7.7 g/dL (6.6-8.7)
[2023-09-18 04:33] LABS: Acetaminophen < 5.0 ug/mL (10-30); Alcohol Level < 10 mg/dL (0-10); Salicylate < 0.3 mg/dL (3-10)
--- NOTE | 2023-09-18 04:41 | PC.NURSE ---
96 Hour Involuntary Hold Patient Rights have been read to the patient and a copy of the same has been given to him. Circulation Representative Ashli Healy was present at bedside at the time of presentation of Rights.
--- NOTE | 2023-09-18 05:23 | USR_ITS ---
PROCEDURE INFORMATION: Exam: US Scrotum Exam date and time: 09/18/2023 6:08 AM Age: 43 years old Clinical indication: Scrotum pain; Additional info: R testicle pain TECHNIQUE: Imaging protocol: Real-time ultrasound of the scrotum and contents with color Doppler and image documentation. COMPARISON: 1. CT abdomen pelvis wo con [id number] 09/18/2023 4:23 AM 2. US scrotum [id number] 05/02/2023 9:42 PM FINDINGS: Right testicle: Markedly enlarged complex cystic right testis or intrascrotal mass measuring approximately 9 x 9 x 10 cm containing multiple septations and varying degrees of internal echoes. No evidence of internal blood flow with some vascular flow demonstrated along the enlarged right testis or intrascrotal mass periphery. Left testicle: Left testis measures 3.9 x 1.8 x 2.2 cm and demonstrates vascular flow. Epididymides: Separate right epididymis not definitely visualized. Scrotum/soft tissues: Large right inguinal hernia containing fat and extensive ascites extending inferiorly into the right scrotum. Small left hydrocele. Extensive diffuse scrotal edema. US/US scrotum [id number] IMPRESSION: 1. Markedly enlarged complex cystic right testis or intrascrotal mass measuring approximately 9 x 9 x 10 cm containing multiple septations and varying degrees of internal echoes. Differential diagnosis includes large complex cystic intratesticular neoplasm including cystadenoma or cystadenocarcinoma of the rete testis versus rare intratesticular metastasis. A large complex complicated pyocele or hematocele with nonvisualized effaced testis along the periphery could have similar appearance. 2. Large right inguinal hernia containing fat and extensive ascites extending inferiorly into the right scrotum. 3. Small left hydrocele. 4. Extensive diffuse scrotal edema.
[2023-09-18 05:37] VITALS: RESP 20
[2023-09-18] MEDS: morphine 4 mg/mL SDV 1 mL IVP (05:37)
[2023-09-18 05:42] VITALS: PULSE 86; RESP 20; O2SAT 96
--- NOTE | 2023-09-18 05:47 | PC.NURSE ---
Patient admitted to , but refused to tell physician specific plan. Patient was changed out from street clothing and placed in green paper scrubs. All patient belongings were removed and placed in bag with patient ID label, then placed in filing cabinet by psych rooms. PSA present at bedside.
--- NOTE | 2023-09-18 06:17 | PC.NURSE ---
Patient report called to charge nurse JAGUAR Manriquez at [facility]. All questions and concerns were addressed at time of report.
[2023-09-18 06:44] VITALS: BP 167/101; PULSE 82; O2SAT 99
[2023-09-18 07:12] VITALS: BP 163/99; PULSE 81; O2SAT 98
== END 2023-09-18 08:10 ==
PROVIDERS: Emergency Medicine; Emergency Provider Family Medicine; PCP Family Medicine
DX: R45.851 Suicidal ideations (principal); R10.9 Unspecified abdominal pain; R93.811 Abnormal radiologic findings on diagnostic imaging of right testicle; I13.2 Hypertensive heart and chronic kidney disease with heart failure and with stage 5 chronic kidney disease, or end stage renal disease; N18.6 End stage renal disease; I50.9 Heart failure, unspecified; Z99.2 Dependence on renal dialysis; I25.10 Atherosclerotic heart disease of native coronary artery without angina pectoris; Z95.5 Presence of coronary angioplasty implant and graft; J44.9 Chronic obstructive pulmonary disease, unspecified; F17.210 Nicotine dependence, cigarettes, uncomplicated; Z79.82 Long term (current) use of aspirin; K40.90 Unilateral inguinal hernia, without obstruction or gangrene, not specified as recurrent
CPT/HCPCS: 74176; 76870; 80053; 80307; 85025; 96372; 96374; 99285; J1200; J2270; J2765

== ENCOUNTER → 2023-09-23 12:21 | Day surgery (SDC) | payer MEDICARE, MEDICAID, SELFPAY ==
--- NOTE | 2023-09-23 12:36 | US_ITS ---
WS: [id number] ULTRASOUND-GUIDED PARACENTESIS CLINICAL INFORMATION: ascites COMPARISON: None. Procedure Informed consent: The risks, benefits, and alternatives of the procedure were discussed with the mariah ent. Verbal and written consent was obtained. Timeout: A timeout was performed to confirm the correct patient, procedure, and site. Preparation: A suitable skin site was identified. The patient was prepped and draped in usual sterile fashion. Lidocaine 1% was used for local anesthesia. Catheter: 4 Indian One-step Yueh catheter. Side: RIGHT Lower quadrant. Fluid Volume: 4200 ml Color: Clear Yellow DISPOSITION: Discarded safely. Complications: None. Patient disposition: Discharged from the department in stable condition. US/US paracentesis abd w [id number] IMPRESSION: Uncomplicated ultrasound-guided paracentesis. Removal of 4200 cc
[2023-09-23 12:37] VITALS: BP 166/92; PULSE 83; RESP 20; TEMP 36.6; O2SAT 93; BMI 25.0
[2023-09-23 13:18] LABS: Cyto Order Verification Order Verified
[2023-09-23 14:30] LABS: Albumin Body Fluid 2.4 g/dL; Total Protein Body Fluid 4.3 g/dL
== END ==
LOC: GILAB 12:21
PROVIDERS: Radiology Neuroradiology; PCP Family Medicine; Visit Provider Internal Medicine
PROC: (CPT 49082; principal; 2023-09-23 13:30)
DX: R18.8 Other ascites (principal)
CPT/HCPCS: 49083; 82042; 84157; 87075; 88112

== ENCOUNTER → 2023-09-30 13:23 | Day surgery (SDC) | payer MEDICARE, MEDICAID, SELFPAY ==
[2023-09-30 13:33] VITALS: BP 166/94; PULSE 81; RESP 18; TEMP 36.6; O2SAT 92; BMI 25.7
--- NOTE | 2023-09-30 13:38 | US_ITS ---
WS: [id number] ULTRASOUND-GUIDED THERAPEUTIC AND DIAGNOSTIC PARACENTESIS Procedure, risks, and complications have been explained to the patient. Consent is obtained. Utilizing aseptic technique and 1% buffered lidocaine, a small dermatome was made through which a 5 F rench Yueh catheter was inserted. Approximately 3400 ml of clear peritoneal fluid was obtained witho ut difficulty. No complications encountered. US/US paracentesis abd w [id number] IMPRESSION: Uncomplicated paracentesis yielding 3400 ml of peritoneal fluid.
[2023-09-30 15:04] LABS: Body Fluid Polynuclear #Cells 0.018; Body Fluid WBC 288 /uL
[2023-09-30 15:15] LABS: Cyto Order Verification Order Verified
[2023-09-30 15:17] LABS: Apprearance, Body Fluid CLOUDY; Color, Body Fluid AMBER
[2023-09-30 15:18] LABS: Fluid Laterality PERITONEAL FLUID; PATH Referral YES
[2023-09-30 15:40] LABS: Albumin Body Fluid 2.1 g/dL; Total Protein Body Fluid 3.8 g/dL
== END ==
PROVIDERS: Radiology Diagnostic Radiology; PCP Family Medicine; Visit Provider Internal Medicine
PROC: (CPT 49082; principal; 2023-09-30 14:00)
DX: R18.8 Other ascites (principal)
CPT/HCPCS: 49083; 80503; 82042; 84157; 87075; 88112; 89050

== ENCOUNTER 2023-10-14 18:24 | Inpatient (IN) | payer MEDICARE, MEDICAID, SELFPAY ==
[2023-10-14] VITALS (19 sets, daily range): BP systolic 127–145; BP diastolic 70–94; PULSE 57–70; RESP 10–18; TEMP 36.8; O2SAT 91–96; BMI 25.7; BMI 25.9
--- NOTE | 2023-10-14 18:35 | XRR_ITS ---
PROCEDURE INFORMATION: Exam: XR Chest Exam date and time: 10/14/2023 6:56 PM Age: 43 years old Clinical indication: Cough and shortness of breath; Prior surgery; Surgery date: 6+ months; Surgery type: Stents TECHNIQUE: Imaging protocol: Radiologic exam of the chest. Views: 1 view. COMPARISON: CR XR chest 1V portable [id number] 09/17/2023 4:39 PM FINDINGS: Lungs: Calcified granulomas in the right lung. Mild atelectasis in the left lung base and peripheral left upper lobe. The lungs are otherwise clear. Pleural spaces: Unremarkable. No pleural effusion. No pneumothorax. Heart/Mediastinum: Cardiomegaly. Bones/joints: Old right rib fracture. No acute fracture. XR/XR chest 1V portable [id number] IMPRESSION: Cardiomegaly without pulmonary edema.
--- NOTE | 2023-10-14 18:35 | ECG_ITS ---
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 Measurements Intervals [place] Rate: 60 P: 0 IN: 0 QRS: 95 QRSD: 129 T: 69 QT: 404 QTc: 406 Interpretive Statements SINUS RHYTHM WITH FIRST DEGREE AV BLOCK BORDERLINE RIGHT AXIS DEVIATION [QRS AXIS > 90] ANTEROLATERAL MYOCARDIAL INFARCTION ,AGE INDETERMINATE Compared to ECG 07/29/2023 13:13:34 Sinus rhythm no longer present Ventricular premature complex(es) no longer present Myocardial infarct finding still present Electronically Signed On 10-15-2023 0:03:57 CDT by Brijesh King M.D. [id number]
--- NOTE | 2023-10-14 18:38 | ED_ITS ---
HPI - SOB/Dyspnea 2 General: Chief Complaint: Shortness of Breath/Dyspnea Stated Complaint: SOB Time Seen by Provider: 10/14/23 18:30 History of Present Illness: HPI Narrative: 43-year-old man with history of end-stag e renal disease on dialysis, chronic hypoxemic respiratory failure on 4 L nasal cannula at all times, hypertension, congestive heart failure, COPD, pulmonary embolism, cirrhosis and ascites who presents to the emergency room with shortness of breath by ambulance. He says his car broke down and he has not been dialysis at least on the last time and he thinks maybe not the last 2 times. He has more swelling. His abdomen is very swollen. Umbilical hernia is protruding. His scrotum is very swollen he says. On presentation he is 95% on his home 4 L nasal cannula. Review of Systems 2 Narrative: Constitutional symptoms: Negative except as documented in HPI. Skin symptoms: Negative except as documented in HPI. Eye symptoms: Negative except as documented in HPI. ENMT symptoms: Negative except as documented in HPI. Respiratory symptoms: Negative except as documented in HPI. Cardiovascular symptoms: Negative except as documented in HPI. Gastrointestinal symptoms: Negative except as documented in HPI. Genitourinary symptoms: Negative except as documented in HPI. Musculoskeletal symptoms: Negative except as documented in HPI. Neurologic symptoms: Negative except as documented in HPI. Psychiatric symptoms: Negative except as documented in HPI. Endocrine symptoms: Negative except as documented in HPI. PFSH ED 2 PFSH: Medical History Acute and chronic respiratory failure with hypoxia Patient under care of multiple providers Hypertensive urgency History of cardiovascular stress test 07/2022 at [facility] perfusion imaging probably normal, no reversible defects, small fixed defect in apical anterior wall, EF 54%, nonischemic response to stress by EKG criteria Depression Epididymitis 06/2022 Pulmonary hypertension Uses bilevel positive airway pressure (BPAP) ventilation at home Umbilical hernia History of home oxygen therapy History of coronary angiogram 11/2021 - patent stent Inguinal hernia Anxiety Chronic respiratory failure on home oxygen and bipap Low back pain Nicotine dependence, cigarettes, with other nicotine-induced disorders Generalized anxiety disorder with panic attacks ESRD on dialysis Atherosclerosis of coronary artery Stent and balloon angioplasty to proximal 1 OM branch Chronic abdominal pain COVID 05/25 Hypertensive emergency recurrent episodes Urethral stricture Abdominal ascites history of intermittent paracentesis, transudative fluid; prior work up has included negative biopsy, ceruloplasmin level normal, low iron, high ferritin, normal TIBC, negative HIV, hepatitis panel negative, JESÚS/SCL 70/double-stranded DNA antibodies negative, Alpha-fetoprotein level unremarkable, nonalcoholic by history, has hepatomegaly and splenomegaly Pulmonary embolism 09/21 CTA inconclusive for very tiny peripheral LEFT lower lobe pulmonary artery sub segmental emboli versus poor opacification. Anemia chronic kidney disease Congestive heart failure preserved ejection fraction COPD (chronic obstructive pulmonary disease) Arteriovenous fistula for hemodialysis in place, secondary Degenerative disc disease, lumbar Hypertension uncontrolled Surgical History Stented coronary artery H/O hand surgery Amputation right 2&3 fingers 2017 History of adenoidectomy Family History Other Hypertension Social History Smoking and tobacco/nicotine status: current every day tobacco/nicotine user cigarettes Packs smoked per day: 1.5 Years cigarettes smoked: 21 [ Other cigarette details: started age 20, currently 0.5ppd ] Alcohol intake: never Substance/Drug Use: never Number of children: 3 Current occupational status: disabled Do you think of yourself as: Straight/Heterosexual Physical Exam 2 Narrative: EXAM NARRATIVE: General: Alert, no acute distress. Skin: Warm, dry. Head: Normocephalic, atraumatic. Neck: Supple, trachea midline. Eye: Extraocular movements are intact. Ears, nose, mouth and throat: mucosa moist. Cardiovascular: Regular, Normal peripheral perfusion. 3+ pitting edema to the thighs. Scrotal edema. Respiratory: Coarse breath sounds, respirations are non-labored, breath sounds are equal, Symmetrical chest wall expansion. Gastrointestinal: Soft, Nontender, distended, fluid-filled/ascites, umbilical hernia is protruding with fluid, Normal bowel sounds. Musculoskeletal: Normal ROM, no deformity. Neurological: Alert and oriented, No focal neurological deficit observed. Psychiatric: Cooperative, appropriate mood & affect. Course 2 Vital Signs: Vital signs: Vital Signs Temperature 98.2 F 10/14/23 18:31 Pulse Rate 64 10/14/23 18:31 Respiratory Rate 18 10/14/23 18:31 Blood Pressure 127/70 10/14/23 18:31 Pulse Oximetry 95 10/14/23 18:31 Oxygen Delivery Me thod Nasal Cannula 10/14/23 18:31 Oxygen Flow Rate 4 10/14/23 18:31 MDM - SOB/Dyspnea Medical Decision Making Medical decision making: Differential diagnosis including but not limited to and based on the above HPI, review of systems and physical exam: In this end-stage renal patient with dialysis and noncompliance who presents the emergency room with shortness of breath and swelling likely has worsening renal failure. Checking kidney function, magnesium, phosphorus and potassium. Would have concerns for elevated potassium. Also chest x-ray to evaluate for fluid overload. Orders placed to evaluate differential diagnosis based on the above differential, HPI and physical exam Lab Review: Laboratory results were reviewed and interpreted by myself the emergency room physician. White count is 5.6. Hemoglobin is stable at 9.4. BUN and creatinine are elevated at 59 and 11.4. Most concerning is a potassium of 7.6. Glucose is 63. Chest x-ray: Slightly increased cardiomegaly. Perhaps some mild early fluid overload but no overt edema. No focal infiltrate. No pneumothorax. This was reviewed and interpreted by myself the ER physician. EKG: Time 1829. Rate 60. No peaked T waves. Normal sinus rhythm, No ST-T changes, no ectopy, normal AL & QRS intervals, This was reviewed and interpreted by myself the ER physician at 1835. I reviewed the patient's medical record. Reexamination: Patient remained stable on his 4 L nasal cannula. No increased work of breathing at rest. No focal motor deficits. No altered mental status. Consultation: I spoke with Dr. Platt with the hospitalist service who is admitting the patient. He request consultation with nephrology. ICU admission. Agrees with Kayexalate, insulin, D50 and calcium gluconate. There are no overt changes in the EKG. Consultation: I spoke with Dr. Sanders with nephrology. She is arranging for emergent dialysis. No other further recommendations at this time. Assessment and plan: End-stage renal disease on dialysis Medical noncompliance Fluid overload Hyperkalemia Hyperphosphatemia Chronic hypoxemic respiratory failure on 4 L nasal cannula at all times ?1 amp D50. 10 units IV insulin. 1 amp calcium gluconate. P.o. Kayexalate -Nephrology consulted and emergent dialysis is being arranged. -Patient is maintaining his oxygen saturations on his home 4 L nasal cannula. -I discussed the patient with the hospitalist on-call who is admitting the patient. - Discussed findings and plan with patient. Answered any questions. - All laboratory values were reviewed and interpreted personally by myself, the ER physician - All imaging was reviewed and interpreted personally by myself, the ER physician. - Evaluation and treatment of this problem were appropriate in the emergency setting Critical care: -I spent a total of >35 minutes of critical care time managing the patient, independent of any other practitioner. -The time involved in the performance of separately reportable procedures was not counted towards critical care time. Lab Data 10/14/23 18:53 10/14/23 18:53 Labs/Radiology: Radiology Impressions Chest X-Ray 10/14/23 18:35 IMPRESSION: Cardiomegaly without pulmonary edema. Laboratory Results WBC 5.65 10^3/uL (3.29-11.43) 10/14/23 18:53 RBC 3.49 10^6/uL (3.85-5.65) L 10/14/23 18:53 Hgb 9.40 g/dL (11.27-16.99) L 10/14/23 18:53 Hct 29.9 % (37-53) L 10/14/23 18:53 MCV 85.7 fl (82-101) 10/14/23 18:53 MCH 26.9 pg (27-33) L 10/14/23 18:53 MCHC 31.4 g/dL (30-55) 10/14/23 18:53 RDW 18.5 % (12.1-15.1) H 10/14/23 18:53 Plt Count 197 10^3/cmm (157-399) 10/14/23 18:53 MPV 9.7 fL (7.4-10.4) 10/14/23 18:53 Neut % (Auto) 69.4 % 10/14/23 18:53 Lymph % (Auto) 10.1 % 10/14/23 18:53 [place] % (Auto) 8.8 % 10/14/23 18:53 Eos % (Auto) 10.1 % 10/14/23 18:53 Baso % (Auto) 1.4 % 10/14/23 18:53 Neut # (Auto) 3.92 10^3/uL (1.8-7.7) 10/14/23 18:53 Lymph # (Auto) 0.6 10^3/uL (0.8-4.8) L 10/14/23 18:53 [place] # (Auto) 0.5 10^3/uL (0.2-0.9) 10/14/23 18:53 Eos # (Auto) 0.6 10^3/uL (0.0-0.8) 10/14/23 18:53 Baso # (Auto) 0.1 10^3/uL (0.0-0.1) 10/14/23 18:53 Nucleated RBC % (auto) 0 % 10/14/23 18:53 Nucleated RBCs # 0.0 /100WBC 10/14/23 18:53 Specimen Type Arterial 10/14/23 18:35 Sample Site Radial, right 10/14/23 18:35 ABG pH 7.33 (7.35-7.45) L 10/14/23 18:35 ABG pCO2 48.3 mmHg (35-45) H 10/14/23 18:35 ABG pO2 78.2 mmHg (80.0-100.0) L 10/14/23 18:35 ABG HCO3 25.4 mmol/L (22-26) 10/14/23 18:35 ABG O2 Saturation 95.1 10/14/23 18:35 ABG Base Excess -0.8 mmol/L (-2.0-2.0) 10/14/23 18:35 Alexei Test Pos 10/14/23 18:35 A-a O2 Gradient 1.5 mmHg (5-10) L 10/14/23 18:35 Hematocrit 29.3 % (42-52) L 10/14/23 18:35 Hgb O2 Saturation 92.0 % (95-100) L 10/14/23 18:35 Carboxyhemoglobin 2.5 %THgb (0.4-20.1) 10/14/23 18:35 Methemoglobin 0.7 % (0.4-1.5) 10/14/23 18:35 Total Hemoglobin 9.6 g/dL (14-18) L 10/14/23 18:35 Sodium 130.0 mmol/L (131-143) L 10/14/23 18:35 Potassium 7.1 mmol/L (3.5-5.0) H 10/14/23 18:35 Glucose 63.0 mg/dL (70-115) L 10/14/23 18:35 Ionized Calcium 1.3 mmol/L (1.1-1.4) 10/14/23 18:35 O2 Delivery Device Nc 10/14/23 18:35 O2 Liters/Min 4.0 % 10/14/23 18:35 Graphic Design Intern ID [place] 10/14/23 18:35 Sodium 131 mmol/L (136-145) L 10/14/23 18:53 Potassium 7.6 mmol/L (3.5-5.1) H* 10/14/23 18:53 Chloride 93 mmol/L (98-107) L 10/14/23 18:53 Carbon Dioxide 24 mmol/L (22-29) 10/14/23 18:53 Anion Gap 21.6 (5-19) H 10/14/23 18:53 BUN 59 mg/dL (6-20) H 10/14/23 18:53 Creatinine 11.4 mg/dL (0.7-1.2) H* 10/14/23 18:53 GFR Calculation 5.0 mL/min (90-130) L 10/14/23 18:53 Glucose 63 mg/dL (65-115) L 10/14/23 18:53 Calculated Osmolality 287 mOsm/kg (285-295) 10/14/23 18:53 Calcium 10.1 mg/dL (8.5-10.5) 10/14/23 18:53 Phosphorus 8.9 mg/dL (2.5-4.5) H* 10/14/23 18:53 Magnesium 1.8 mg/dL (1.7-2.3) 10/14/23 18:53 Total Bilirubin 0.4 mg/dL (0.15-1.2) 10/14/23 18:53 AST 10 U/L (0-40) 10/14/23 18:53 ALT < 5 U/L (0-41) 10/14/23 18:53 Alkaline Phosphatase 109 U/L (40-130) 10/14/23 18:53 Total Protein 6.7 g/dL (6.6-8.7) 10/14/23 18:53 Albumin 3.3 g/dL (3.5-5.2) L 10/14/23 18:53 Globulin 3.4 g/dL (1.3-4.6) 10/14/23 18:53 All radiology interpretation(s) finalized by discharge Discharge Plan Discharge Patient Disposition: Admitted As Inpatient Clinical Impression: End stage renal disease on dialysis, Medical non-compliance, Hyperkalemia, Hyperphosphatemia Fluid overload Qualifiers: Hypervolemia type: unspecified Qualified Code(s): E87.70 - Fluid overload, unspecified Dyspnea Qualifiers: Dyspnea type: unspecified Qualified Code(s): R06.00 - Dyspnea, unspecified Condition: Stable Coding Level of Care Code ED Aircraft Maintenance Manager for Cristi Diane
[2023-10-14 18:46] LABS: ABG PCO2 48.3 mmHg (35-45); ABG PH Result 7.33 (7.35-7.45); Alveolar-Arterial Oxygen Gradi 1.5 mmHg (5-10); Arterial Blood Gas Hematocrit 29.3 % (42-52); Base Excess ABG -0.8 mmol/L (-2.0-2.0); Blood Gas Allen Test Pos; Blood Gas Operator Identificat WALCI; Blood Gas Sample Site Radial, right; Blood Gas Sample Type Arterial; Carboxyhemoglobin 2.5 %THgb (0.4-20.1); HCO3 ABG 25.4 mmol/L (22-26); Ionized Calcium Level - ABG 1.3 mmol/L (1.1-1.4); Methemoglobin 0.7 % (0.4-1.5); Oxygen Device NC; Oxygen Saturation ABG 95.1; PO2 ABG 78.2 mmHg (80.0-100.0); Potassium Level - ABG 7.1 mmol/L (3.5-5.0); Total Hemoglobin 9.6 g/dL (14-18)
[2023-10-14 19:06] LABS: Basophils # 0.1 10^3/uL (0.0-0.1); Basophils % 1.4 %; Eosinophils # 0.6 10^3/uL (0.0-0.8); Eosinophils % 10.1 %; Hematocrit 29.9 % (37-53); Lymphocytes # 0.6 10^3/uL (0.8-4.8); Lymphocytes % 10.1 %; Mean Corpuscular HGB Conc 31.4 g/dL (30-55); Mean Corpuscular Hemoglobin 26.9 pg (27-33); Mean Corpuscular Volume 85.7 fl (82-101); Mean Platelet Volume 9.7 fL (7.4-10.4); Monocytes # 0.5 10^3/uL (0.2-0.9); Monocytes % 8.8 %; Neutrophils # 3.92 10^3/uL (1.8-7.7); Neutrophils % 69.4 %; Nucleated Red Blood Cells % 0 %; Platelet Count 197 10^3/cmm (157-399); Red Blood Count 3.49 10^6/uL (3.85-5.65); Red Cell Distribution Width 18.5 % (12.1-15.1); White Blood Count 5.65 10^3/uL (3.29-11.43)
[2023-10-14 19:17] LABS: Alanine Aminotransferase < 5 U/L (0-41); Albumin Level 3.3 g/dL (3.5-5.2); Alkaline Phosphatase 109 U/L (40-130); Anion Gap 21.6 (5-19); Aspartate Amino Transferase 10 U/L (0-40); Blood Urea Nitrogen 59 mg/dL (6-20); Calcium 10.1 mg/dL (8.5-10.5); Carbon Dioxide 24 mmol/L (22-29); Chloride 93 mmol/L (98-107); Creatinine Clr Calc Pharmacy 10.0496; Globulin 3.4 g/dL (1.3-4.6); Glucose 63 mg/dL (65-115); Magnesium 1.8 mg/dL (1.7-2.3); Osmolality Calculated 287 mOsm/kg (285-295); Sodium 131 mmol/L (136-145); Total Bilirubin 0.4 mg/dL (0.15-1.2); Total Protein 6.7 g/dL (6.6-8.7)
[2023-10-14 19:21] LABS: Potassium 7.6 mmol/L (3.5-5.1)
[2023-10-14 19:22] LABS: Phosphorus 8.9 mg/dL (2.5-4.5)
[2023-10-14] MEDS: calcium gluconate 0.1 gm/mL 10% SDV 10mL 1 GM IVP (19:41)
[2023-10-14] MEDS: sodium polystyrene sulfonate 15 gm/60 mL Btl PO (19:44)
[2023-10-14] MEDS: dextrose 50% syringe 50 mL IVP (19:47)
--- NOTE | 2023-10-14 19:48 | PC.NURSE ---
ALL IV PUSHES WERE ADMINISTERED BY PODIANNEE RN INCLUDING INSULIN, DEX 50CC, CALCIUM GLUCONATE.
[2023-10-14] MEDS: insulin regular-human 100 units/1 mL 10 UNIT IVP (19:51)
[2023-10-14 21:26] LABS: Procalcitonin 0.43 ng/mL (0-0.5)
--- NOTE | 2023-10-14 21:51 | PC.NURSE ---
Called ICU to give report, Cassie stated someone would call me back to take report.
[2023-10-14] MEDS: morphine 4 mg/mL SDV 1 mL IVP (22:14)
[2023-10-14 22:21] LABS: Hepatitis B Surface Antigen Non-Reactive (Nonreactive)
--- NOTE | 2023-10-14 23:03 | P.HP_ITS ---
Providers/Chief Complaint 2 Admitting Physician: Kerwin Platt MD Primary Care Provider: Delio Salazar MD Chief Complaint: SOB History of Present Illness Mal Gibbs is a 43 year old male with a past medical history of chronic renal failure on HD, current smoker, COPD, liver cirrhosis, requiring recurrent paracentesis, hypertension, hyperlipidemia, who presents [facility] due to increased shortness of breath increased abdominal distention, anasarca, after he missed dialysis the last two times. He has hyperkalemia and fluid overload, admitted for urgent HD now. h/o recurrent hospital admissions for the same. Review of Systems 2 General: Reports: 10 or more systems reviewed and unremarkable except in HPI and below Const: Denies: fever(s), chills or body aches Eyes: Denies: change in vision, blurry vision or photophobia ENMT: Reports: hoarseness; Denies: throat pain, enlarged tonsils, odynophagia or nasal congestion Card: Denies: chest pain, palpitations, irregular heart rhythm, edema, swelling of feet/ankles, lightheadedness, pre-syncope, dyspnea on exertion or orthopnea Resp: Reports: dyspnea and non-productive cough; Denies: productive cough, wheezing, stridor, pain on inspiration, change in phlegm color, hemoptysis or chest congestion GI: Reports: abdominal pain and nausea; Denies: vomiting, hematemesis, coffee ground emesis, dysphagia, heartburn, diarrhea, constipation, GI cramping, change in stool character, hematochezia or melena : Denies: flank pain, dysuria, urinary frequency, urinary urgency, urinary hesitancy or hematuria Musc: Denies: neck pain, back pain, extremity pain, joint swelling, joint warmth or deformity Neuro: Denies: headache(s), numbness in extremities, weakness in extremities, sensory changes, difficulty walking, frequent falls, dizziness, vertigo, behavioral changes, Slurred speech present or seizure-like activity Psych: Denies: anxiety, depression, suicidal ideation or homicidal ideation Endo: Denies: polyuria, polydipsia, tired all the time, cold intolerance or hot flashes [place]/Lymph: Denies: easy bruising or easy bleeding Medications/Allergies Home Medications Medication Instructions Recorded Confirmed Last Taken Type ferric citrate 210 mg iron tablet See Rx Instructions .Route .COMPLEX 11/03/21 09/30/23 09/29/23 History (Auryxia) aspirin 81 mg tablet,delayed 81 mg PO QAM 02/21/22 09/30/23 09/29/23 History release pantoprazole 40 mg tablet,delayed 40 mg PO BEDTIME 02/21/22 09/30/23 09/29/23 History release DME - BIPAP #1 ea 02/25/22 09/30/23 09/29/23 Rx DME - Oxygen #1 ea 02/25/22 09/30/23 09/29/23 Rx isosorbide mononitrate 120 mg 240 mg PO QAM 10/01/22 09/30/23 09/29/23 History tablet,extended release 24 hr vit B,C-folic ac 800 mcg-zinc 12.5 1 tab PO QAM 10/01/22 09/30/23 09/29/23 History mg-selen-D3 2,000 unit-vit E tablet (RenaPlex-D) amlodipine 10 mg tablet 10 mg PO QAM 01/09/23 09/30/23 09/29/23 History atorvastatin 40 mg tablet 40 mg PO BEDTIME 01/09/23 09/30/23 09/29/23 History carvedilol 25 mg tablet 37.5 mg PO Q12H 01/09/23 09/30/23 09/29/23 History hydralazine 100 mg tablet 100 mg PO Q8H 01/09/23 09/30/23 09/29/23 History prasugrel 10 mg tablet 10 mg PO QAM 01/09/23 09/30/23 09/29/23 History minoxidil 2.5 mg tablet 10 mg PO TID 05/19/23 09/30/23 09/29/23 History albuterol sulfate 90 mcg/actuation 2 puff inhalation QID PRN 07/29/23 09/30/23 09/15/23 History aerosol inhaler Shortness Of Breath clonidine 0.2 mg/24 hr weekly 1 patch topical .WKLY 08/25/23 09/30/23 09/29/23 History transdermal patch hydrocodone 5 mg-acetaminophen 325 1 tab PO Q8H PRN pain #10 tabs 09/05/23 09/30/23 09/15/23 Rx mg tablet ondansetron 4 mg disintegrating 4 mg PO Q8H PRN nausea and 09/05/23 09/30/23 09/15/23 Rx tablet vomiting #10 tabs Allergies Allergy/AdvReac Type Severity Reaction Status Date / Time spironolactone Allergy Intermediate facial Verified 09/15/23 23:43 swelling haloperidol [From Haldol] Allergy ADR-Irritab Verified 09/15/23 23:43 le lisinopril Allergy ADR-Swelling Verified 09/15/23 23:43 of the Eye nifedipine Allergy ALGY-Swell Verified 09/15/23 23:43 Lip/Tongue/Throat PFSH Acute 2 PFSH: Medical History Acute and chronic respiratory failure with hypoxia Patient under care of multiple providers Hypertensive urgency History of cardiovascular stress test 07/2022 at [facility] perfusion imaging probably normal, no reversible defects, small fixed defect in apical anterior wall, EF 54%, nonischemic response to stress by EKG criteria Depression Epididymitis 06/2022 Pulmonary hypertension Uses bilevel positive airway pressure (BPAP) ventilation at home Umbilical hernia History of home oxygen therapy History of coronary angiogram 11/2021 - patent stent Inguinal hernia Anxiety Chronic respiratory failure on home oxygen and bipap Low back pain Nicotine dependence, cigarettes, with other nicotine-induced disorders Generalized anxiety disorder with panic attacks ESRD on dialysis Atherosclerosis of coronary artery Stent and balloon angioplasty to proximal 1 OM branch Chronic abdominal pain COVID 05/25 Hypertensive emergency recurrent episodes Urethral stricture Abdominal ascites history of intermittent paracentesis, transudative fluid; prior work up has included negative biopsy, ceruloplasmin level normal, low iron, high ferritin, normal TIBC, negative HIV, hepatitis panel negative, JESÚS/SCL 70/double-stranded DNA antibodies negative, Alpha-fetoprotein level unremarkable, nonalcoholic by history, has hepatomegaly and splenomegaly Pulmonary embolism 09/21 CTA inconclusive for very tiny peripheral LEFT lower lobe pulmonary artery sub segmental emboli versus poor opacification. Anemia chronic kidney disease Congestive heart failure preserved ejection fraction COPD (chronic obstructive pulmonary disease) Arteriovenous fistula for hemodialysis in place, secondary Degenerative disc disease, lumbar Hypertension uncontrolled Surgical History Stented coronary artery H/O hand surgery Amputation right 2&3 fingers 2017 History of adenoidectomy Family History Other Hypertension Social History Smoking and tobacco/nicotine status: current every day tobacco/nicotine user cigarettes Packs smoked per day: 1.5 Years cigarettes smoked: 21 [ Other cigarette details: started age 20, currently 0.5ppd ] Alcohol intake: never Substance/Drug Use: never Number of children: 3 Current occupational status: disabled Do you think of yourself as: Straight/Heterosexual Vitals/I&O/Wt Last Vital Signs Temp 98.2 F 10/14/23 18:31 Pulse 67 10/14/23 20:30 Resp 18 10/14/23 18:31 BP 127/70 10/14/23 18:31 Pulse Ox 93 10/14/23 20:30 O2 Del Method Room Air 10/14/23 20:30 O2 Flow Rate 3.5 10/14/23 20:00 Weight last 48 hrs Weight 88.451 kg Physical Exam 2 Narrative: General: hypervolemic, c/o pain HEENT: PERRLA, pupils bilaterally equal and reactive, pallors not present Chest: Normal vesicular breath sounds, no added sounds, equal good air entry bilaterally CVS: S1-S2 regular, no murmurs, no tachycardia, no gallops, no rubs Abdomen: tense, distended Neuro: No focal deficits, no facial deformity, AO x3, power 5/5 in all limbs Data 10/14/23 18:53 10/14/23 18:53 Other Labs: Radiology Impressions Chest X-Ray 10/14/23 18:35 IMPRESSION: Cardiomegaly without pulmonary edema. Laboratory Results WBC 5.65 10^3/uL (3.29-11.43) 10/14/23 18:53 RBC 3.49 10^6/uL (3.85-5.65) L 10/14/23 18:53 Hgb 9.40 g/dL (11.27-16.99) L 10/14/23 18:53 Hct 29.9 % (37-53) L 10/14/23 18:53 MCV 85.7 fl (82-101) 10/14/23 18:53 MCH 26.9 pg (27-33) L 10/14/23 18:53 MCHC 31.4 g/dL (30-55) 10/14/23 18:53 RDW 18.5 % (12.1-15.1) H 10/14/23 18:53 Plt Count 197 10^3/cmm (157-399) 10/14/23 18:53 MPV 9.7 fL (7.4-10.4) 10/14/23 18:53 Neut % (Auto) 69.4 % 10/14/23 18:53 Lymph % (Auto) 10.1 % 10/14/23 18:53 [place] % (Auto) 8.8 % 10/14/23 18:53 Eos % (Auto) 10.1 % 10/14/23 18:53 Baso % (Auto) 1.4 % 10/14/23 18:53 Neut # (Auto) 3.92 10^3/uL (1.8-7.7) 10/14/23 18:53 Lymph # (Auto) 0.6 10^3/uL (0.8-4.8) L 10/14/23 18:53 [place] # (Auto) 0.5 10^3/uL (0.2-0.9) 10/14/23 18:53 Eos # (Auto) 0.6 10^3/uL (0.0-0.8) 10/14/23 18:53 Baso # (Auto) 0.1 10^3/uL (0.0-0.1) 10/14/23 18:53 Nucleated RBC % (auto) 0 % 10/14/23 18:53 Nucleated RBCs # 0.0 /100WBC 10/14/23 18:53 Specimen Type Arterial 10/14/23 18:35 Sample Site Radial, right 10/14/23 18:35 ABG pH 7.33 (7.35-7.45) L 10/14/23 18:35 ABG pCO2 48.3 mmHg (35-45) H 10/14/23 18:35 ABG pO2 78.2 mmHg (80.0-100.0) L 10/14/23 18:35 ABG HCO3 25.4 mmol/L (22-26) 10/14/23 18:35 ABG O2 Saturation 95.1 10/14/23 18:35 ABG Base Excess -0.8 mmol/L (-2.0-2.0) 10/14/23 18:35 Alexei Test Pos 10/14/23 18:35 A-a O2 Gradient 1.5 mmHg (5-10) L 10/14/23 18:35 Hematocrit 29.3 % (42-52) L 10/14/23 18:35 Hgb O2 Saturation 92.0 % (95-100) L 10/14/23 18:35 Carboxyhemoglobin 2.5 %THgb (0.4-20.1) 10/14/23 18:35 Methemoglobin 0.7 % (0.4-1.5) 10/14/23 18:35 Total Hemoglobin 9.6 g/dL (14-18) L 10/14/23 18:35 Sodium 130.0 mmol/L (131-143) L 10/14/23 18:35 Potassium 7.1 mmol/L (3.5-5.0) H 10/14/23 18:35 Glucose 63.0 mg/dL (70-115) L 10/14/23 18:35 Ionized Calcium 1.3 mmol/L (1.1-1.4) 10/14/23 18:35 O2 Delivery Device Nc 10/14/23 18:35 O2 Liters/Min 4.0 % 10/14/23 18:35 Transcript Clerk ID Walci 10/14/23 18:35 Sodium 131 mmol/L (136-145) L 10/14/23 18:53 Potassium 7.6 mmol/L (3.5-5.1) H* 10/14/23 18:53 Chloride 93 mmol/L (98-107) L 10/14/23 18:53 Carbon Dioxide 24 mmol/L (22-29) 10/14/23 18:53 Anion Gap 21.6 (5-19) H 10/14/23 18:53 BUN 59 mg/dL (6-20) H 10/14/23 18:53 Creatinine 11.4 mg/dL (0.7-1.2) H* 10/14/23 18:53 GFR Calculation 5.0 mL/min (90-130) L 10/14/23 18:53 Glucose 63 mg/dL (65-115) L 10/14/23 18:53 Calculated Osmolality 287 mOsm/kg (285-295) 10/14/23 18:53 Calcium 10.1 mg/dL (8.5-10.5) 10/14/23 18:53 Phosphorus 8.9 mg/dL (2.5-4.5) H* 10/14/23 18:53 Magnesium 1.8 mg/dL (1.7-2.3) 10/14/23 18:53 Total Bilirubin 0.4 mg/dL (0.15-1.2) 10/14/23 18:53 AST 10 U/L (0-40) 10/14/23 18:53 ALT < 5 U/L (0-41) 10/14/23 18:53 Alkaline Phosphatase 109 U/L (40-130) 10/14/23 18:53 Total Protein 6.7 g/dL (6.6-8.7) 10/14/23 18:53 Albumin 3.3 g/dL (3.5-5.2) L 10/14/23 18:53 Globulin 3.4 g/dL (1.3-4.6) 10/14/23 18:53 Procalcitonin 0.43 ng/mL (0-0.5) 10/14/23 18:53 Hep Bs Antigen Non-reactive (Nonreactive) 10/14/23 18:53 A&P Assessment and plan (1) Fluid overload: Qualifiers: Hypervolemia type: unspecified Qualified Code(s): E87.70 - Fluid overload, unspecified (2) End-stage renal disease needing dialysis: (3) Acute hyperkalemia: Plan 43-year-old male with known CKD on hemodialysis, presenting today after having missed 2 dialysis sessions. He has hyperkalemia, hypervolemic on exam Plan for hemodialysis this afternoon after admission to the intensive care unit. Nephrology consulted from the emergency room. Recheck labs after dialysis. History of hypertension which has been difficult to control in the past. Continuing home doses of amlodipine, carvedilol, hydralazine and Imdur for blood pressure management during hospital admission. DVT prophylaxis: Heparin subcutaneously Full code Attestations 2 Medical Necessity Statement*: Patient would need to be admitted for undergoing hemodialysis, acute hyperkalemia, volume overload. Coding Level of Care Code Acute Code for Chg Fwd High MDM includes number and complexity of problems actively addressed during encounter, amount and/or complexity of data reviewed/ordered and described risk of complication, morbidity or mortality of management as documented Diagnoses Fluid overload E87.70 Hypervolemia type: unspecified End-stage renal disease needing dialysis N18.6; Z99.2 Acute hyperkalemia E87.5
--- NOTE | 2023-10-14 23:40 | PM.CONSULT ---
Providers/Reason For Consult Consulting Physician/Specialty*: Imani Seo DO, telemedicine Reason for Consult*: ESRD, hyperkalemia Requesting Physician: ER physician Attending Physician: Tiarra Villegas MD Primary Care Provider: Delio Salazar MD History of Present Illness History of Present Illness Mal Gibbs is a 43 year old male presented to Er after missing HD. Last HD ThursdayOctober 09. States he feels like crap Medications/Allergies Home Medications Medication Instructions Recorded Confirmed Last Taken Type ferric citrate 210 mg iron tablet See Rx Instructions .Route .COMPLEX 11/03/21 09/30/23 09/29/23 History (Auryxia) aspirin 81 mg tablet,delayed 81 mg PO QAM 02/21/22 09/30/23 09/29/23 History release pantoprazole 40 mg tablet,delayed 40 mg PO BEDTIME 02/21/22 09/30/23 09/29/23 History release DME - BIPAP #1 ea 02/25/22 09/30/23 09/29/23 Rx DME - Oxygen #1 ea 02/25/22 09/30/23 09/29/23 Rx isosorbide mononitrate 120 mg 240 mg PO QAM 10/01/22 09/30/23 09/29/23 History tablet,extended release 24 hr vit B,C-folic ac 800 mcg-zinc 12.5 1 tab PO QAM 10/01/22 09/30/23 09/29/23 History mg-selen-D3 2,000 unit-vit E tablet (RenaPlex-D) amlodipine 10 mg tablet 10 mg PO QAM 01/09/23 09/30/23 09/29/23 History atorvastatin 40 mg tablet 40 mg PO BEDTIME 01/09/23 09/30/23 09/29/23 History carvedilol 25 mg tablet 37.5 mg PO Q12H 01/09/23 09/30/23 09/29/23 History hydralazine 100 mg tablet 100 mg PO Q8H 01/09/23 09/30/23 09/29/23 History prasugrel 10 mg tablet 10 mg PO QAM 01/09/23 09/30/23 09/29/23 History minoxidil 2.5 mg tablet 10 mg PO TID 05/19/23 09/30/23 09/29/23 History albuterol sulfate 90 mcg/actuation 2 puff inhalation QID PRN 07/29/23 09/30/23 09/15/23 History aerosol inhaler Shortness Of Breath clonidine 0.2 mg/24 hr weekly 1 patch topical .WKLY 08/25/23 09/30/23 09/29/23 History transdermal patch hydrocodone 5 mg-acetaminophen 325 1 tab PO Q8H PRN pain #10 tabs 09/05/23 09/30/23 09/15/23 Rx mg tablet ondansetron 4 mg disintegrating 4 mg PO Q8H PRN nausea and 09/05/23 09/30/23 09/15/23 Rx tablet vomiting #10 tabs Allergies Allergy/AdvReac Type Severity Reaction Status Date / Time spironolactone Allergy Intermediate facial Verified 09/15/23 23:43 swelling haloperidol [From Haldol] Allergy ADR-Irritab Verified 09/15/23 23:43 le lisinopril Allergy ADR-Swelling Verified 09/15/23 23:43 of the Eye nifedipine Allergy ALGY-Swell Verified 09/15/23 23:43 Lip/Tongue/Throat PFSH Acute PFSH: Medical History Acute and chronic respiratory failure with hypoxia Patient under care of multiple providers Hypertensive urgency History of cardiovascular stress test 07/2022 at [facility] perfusion imaging probably normal, no reversible defects, small fixed defect in apical anterior wall, EF 54%, nonischemic response to stress by EKG criteria Depression Epididymitis 06/2022 Pulmonary hypertension Uses bilevel positive airway pressure (BPAP) ventilation at home Umbilical hernia History of home oxygen therapy History of coronary angiogram 11/2021 - patent stent Inguinal hernia Anxiety Chronic respiratory failure on home oxygen and bipap Low back pain Nicotine dependence, cigarettes, with other nicotine-induced disorders Generalized anxiety disorder with panic attacks ESRD on dialysis Atherosclerosis of coronary artery Stent and balloon angioplasty to proximal 1 OM branch Chronic abdominal pain COVID 05/25 Hypertensive emergency recurrent episodes Urethral stricture Abdominal ascites history of intermittent paracentesis, transudative fluid; prior work up has included negative biopsy, ceruloplasmin level normal, low iron, high ferritin, normal TIBC, negative HIV, hepatitis panel negative, JESÚS/SCL 70/double-stranded DNA antibodies negative, Alpha-fetoprotein level unremarkable, nonalcoholic by history, has hepatomegaly and splenomegaly Pulmonary embolism 09/21 CTA inconclusive for very tiny peripheral LEFT lower lobe pulmonary artery sub segmental emboli versus poor opacification. Anemia chronic kidney disease Congestive heart failure preserved ejection fraction COPD (chronic obstructive pulmonary disease) Arteriovenous fistula for hemodialysis in place, secondary Degenerative disc disease, lumbar Hypertension uncontrolled Surgical History Stented coronary artery H/O hand surgery Amputation right 2&3 fingers 2017 History of adenoidectomy Family History Other Hypertension Social History Smoking and tobacco/nicotine status: current every day tobacco/nicotine user cigarettes Packs smoked per day: 1.5 Years cigarettes smoked: 21 [ Other cigarette details: started age 20, currently 0.5ppd ] Alcohol intake: never Substance/Drug Use: never Number of children: 3 Current occupational status: disabled Do you think of yourself as: Straight/Heterosexual Vitals/I&O/Wt Last Vital Signs Temp 98.2 F 10/14/23 18:31 Pulse 67 10/14/23 20:30 Resp 18 10/14/23 18:31 BP 127/70 10/14/23 18:31 Pulse Ox 93 10/14/23 20:30 O2 Del Method Room Air 10/14/23 20:30 O2 Flow Rate 3.5 10/14/23 20:00 Weight last 48 hrs Weight 88.451 kg Data 10/14/23 18:53 10/14/23 18:53 ABG Interpretation 1: 10/14/23 18:35 ABG pH 7.33 L ABG pCO2 48.3 H ABG pO2 78.2 L ABG HCO3 25.4 ABG O2 Saturation 95.1 ABG Base Excess -0.8 Other data: seen via telemedicine with assistance of RN at bedside A&P Assessment and plan (1) Hyperkalemia: Plan 1. ESRD 2. Hyperkalemia, missed HD yesterday, Last HD October 09 3. Anemia 4.Hypertension, blood pressure currently normal, reports he takes all medications on medication list. Would be cautious in administering them all. REcommend hold minoxidil, hydralazine until required for high BP Plan: Received kayexylate, insulin, D50, calcium gluconate in ER. HD tonight, 2K 4h, 2L UF HD again tomorrow. No IVs, blood draws, BPs left arm Consult Attestations Medical Necessity Statement: critically high potassium requires ICU Coding Level of Care Code Acute Code for Chg Fwd Diagnoses Hyperkalemia E87.5
[2023-10-15] VITALS (70 sets, daily range): BP systolic 91–164; BP diastolic 46–127; PULSE 68–91; RESP 10–26; TEMP 35.8–36.7; O2SAT 77–100; BMI 25.7
[2023-10-15] MEDS: heparin 5,000 unit/mL INJ 1 mL 5000 UNIT SUBCUT ×3 (00:02→23:15)
[2023-10-15] MEDS: pantoprazole 40 mg SDV IVP ×2 (00:02→23:15)
[2023-10-15 00:12] LABS: Thyroid Stimulating Hormone 3.03 uIU/mL (0.27-4.20)
[2023-10-15] MEDS: hyDRALAzine 50 mg Tablet 100 MG PO ×4 (00:20→23:13)
[2023-10-15] MEDS: aspirin 81 mg EC Tablet PO (05:20)
[2023-10-15] MEDS: amlodipine 10 mg Tablet PO (05:20)
[2023-10-15] MEDS: isosorbide mononitrate ER 60 mg Tablet 240 MG PO (05:20)
[2023-10-15] MEDS: morphine 4 mg/mL SDV 1 mL 2 MG IVP ×3 (05:37→09:42)
[2023-10-15 05:38] LABS: Basophils # 0.1 10^3/uL (0.0-0.1); Basophils % 1.7 %; Eosinophils # 0.4 10^3/uL (0.0-0.8); Eosinophils % 9.4 %; Hematocrit 30.8 % (37-53); Lymphocytes # 0.4 10^3/uL (0.8-4.8); Lymphocytes % 9.1 %; Mean Corpuscular HGB Conc 31.5 g/dL (30-55); Mean Corpuscular Hemoglobin 26.7 pg (27-33); Mean Corpuscular Volume 84.8 fl (82-101); Mean Platelet Volume 10.4 fL (7.4-10.4); Monocytes # 0.4 10^3/uL (0.2-0.9); Monocytes % 8.9 %; Neutrophils # 3.32 10^3/uL (1.8-7.7); Neutrophils % 70.7 %; Nucleated Red Blood Cells % 0 %; Platelet Count 193 10^3/cmm (157-399); Red Blood Count 3.63 10^6/uL (3.85-5.65); Red Cell Distribution Width 18.2 % (12.1-15.1)
[2023-10-15 06:05] LABS: Alanine Aminotransferase < 5 U/L (0-41); Alkaline Phosphatase 126 U/L (40-130); Anion Gap 13.6 (5-19); Aspartate Amino Transferase 10 U/L (0-40); Blood Urea Nitrogen 27 mg/dL (6-20); Carbon Dioxide 30 mmol/L (22-29); Chloride 99 mmol/L (98-107); Creatinine Clr Calc Pharmacy 18.1973; Globulin 2.8 g/dL (1.3-4.6); Glomerular Filtration Rate 9.8 mL/min (90-130); Glucose 109 mg/dL (65-115); Magnesium 1.8 mg/dL (1.7-2.3); Osmolality Calculated 292 mOsm/kg (285-295); Phosphorus 4.8 mg/dL (2.5-4.5); Potassium 4.6 mmol/L (3.5-5.1); Sodium 138 mmol/L (136-145); Total Bilirubin 0.4 mg/dL (0.15-1.2); Total Protein 5.8 g/dL (6.6-8.7)
[2023-10-15 06:06] LABS: Procalcitonin 0.36 ng/mL (0-0.5)
[2023-10-15 06:07] LABS: Chol HDL Ratio 2.17 mg/dL (1.0-5.00); Cholesterol 78 mg/dL (0-200); HDL Cholesterol 36 mg/dL (60-100); LDL Cholesterol Calculated 32 mg/dL (50-129); LDL HDL Ratio 0.89 RATIO (0.00-3.22); Triglycerides 50 mg/dL (0-150)
[2023-10-15 06:08] LABS: Estmated Average Glucose 77; Hemoglobin A1C 4.3 % (4.0-6.0)
[2023-10-15] MEDS: acetaminophen 325 mg Tablet 650 MG PO (07:29)
--- NOTE | 2023-10-15 07:33 | P.PN_ITS ---
Subjective 2 Subjective: feels better. He states that he missed dialysis yesterday as his car was not working. History includes ESRD on dialysis, tobacco use with COPD, liver cirrhosis, hypertension hyperlipidemia. The patient is less short of breath denies nausea vomiting or diarrhea or headaches. Medications: Reviewed: Yes Medication Review Details: Current Medications Acetaminophen (Acetaminophen 325 Mg Tablet) 650 mg PO Q6H PRN PRN Reason: Mild/Mod Pain Or Temp >/= 101 Last Admin: 10/15/23 07:29 Dose: 650 mg Albuterol Sulfate (Albuterol 2.5 Mg/3 Ml Neb) 2.5 mg INHALATION QID.RESPIRATORY PRN PRN Reason: Shortness Of Breath Amlodipine Besylate (A[facility]ipine 10 Mg Tablet) [facility] [place] Last Admin: 10/15/23 05:20 Dose: 10 mg Aspirin (Aspirin 81 Mg Ec Tablet) 81 [facility] [place] Last Admin: 10/15/23 05:20 Dose: 81 mg Atorvastatin Calcium (Atorvastatin 40 Mg Tablet) 40 mg PO BEDTIME [facility] Last Admin: 10/15/23 00:00 Dose: 40 mg Bisacodyl (Bisacodyl 5 Mg Tablet) 10 mg PO DAILY PRN; Protocol PRN Reason: Constipation (see protocol) Carvedilol (Carvedilol 25 Mg Tablet) 37.5 mg PO Q12H [facility] Last Admin: 10/15/23 00:00 Dose: 37.5 mg Clonidine HCl (Clonidine 0.2 Mg/24 Hr Patch) 1 patch TOPICAL .WKLY [facility] Heparin Sodium (Porcine) (Heparin 5,000 Unit/Ml Inj 1 Ml) 5,000 unit SUBCUT Q12H [facility] Last Admin: 10/15/23 00:02 Dose: 5,000 unit Hydralazine HCl (Hydralazine 50 Mg Tablet) 100 mg PO Q8H [facility] Last Admin: 10/15/23 07:28 Dose: 100 mg Isosorbide Mononitrate (Isosorbide Mononitrate Er 60 Mg Tablet) 240 [facility] [place] Last Admin: 10/15/23 05:20 Dose: 240 mg Lactulose (Lactulose Oral Liq 20 Gm/30 Ml Udc) 10 gm PO DAILY PRN; Protocol PRN Reason: Constipation (see protocol) Magnesium Hydroxide (Magnesium Hydroxide 30 Ml Udc) 30 ml PO DAILY PRN; Protocol PRN Reason: Constipation (see protocol) Morphine Sulfate (Morphine 4 Mg/Ml Sdv 1 Ml) 2 mg IVP Q4H PRN PRN Reason: SEVERE PAIN Last Admin: 10/15/23 05:37 Dose: 2 mg Morphine Sulfate (Morphine 4 Mg/Ml Sdv 1 Ml) 2 mg IVP ONCE ONE Stop: 10/15/23 07:25 Ondansetron HCl (Ondansetron 4 Mg Tablet) 4 mg PO Q8H PRN PRN Reason: nausea and vomiting Pantoprazole Sodium (Pantoprazole 40 Mg Sdv) 40 mg IVP Q24H [facility] Last Admin: 10/15/23 00:02 Dose: 40 mg Vitals/I&O/Wt Last Vital Signs Temp 97.7 F 10/15/23 04:23 Pulse 76 10/15/23 06:00 Resp 21 H 10/15/23 05:37 BP 131/68 10/15/23 04:23 Pulse Ox 92 10/15/23 05:37 O2 Del Method Nasal Cannula 10/15/23 04:00 O2 Flow Rate 4 10/15/23 00:25 10/14/23 10/15/23 10/15/23 22:59 06:59 14:59 Intake Total 740 / 740 Output Total 2554 / 2554 Balance -1814 / -1814 Weight last 48 hrs Weight 88.592 kg Weight 88.587 kg Weight 88.961 kg Weight 88.451 kg Physical Exam 2 Narrative: Vital signs noted and are normal. Patient sitting up uncomfortable no respiratory distress. Using nasal cannula oxygen HEENT normocephalic atraumatic. Neck is supple Lungs wheezes and rhonchi. Heart regular positive S1-S2. Abdomen soft positive bowel sounds. Extremities left upper extremity AV fistula with good thrill and bruit. Legs 1+ edema. Neuro awake alert oriented x 3 Data 10/15/23 04:37 10/15/23 04:37 A&P Assessment and plan (1) End stage renal disease on dialysis: 43-year-old gentleman ESRD, COPD, liver cirrhosis. Patient presented with shortness of breath and hyperkalemia after missing 2 dialysis sessions. Patient had dialysis last evening early this morning. Patient normally gets dialysis on a Thursday schedule. Will discuss with my nurse planning of dialysis for today or tomorrow. Phosphorus improved. Hemoglobin acceptable at 9.7. Patient may need Epogen. Blood pressure is normal I doubt that he takes all of these medications at home. If you are using clonidine patch that is fine we will stop hydralazine for now as it would be difficult for him to take a every 8 hour medication. Patient encouraged to take medications and not miss dialysis. Chart reviewed. Consent for hemodialysis and telehealth obtained from the patient. Patient was seen using audiovisual equipment with the help of the nurse as a telehealth visit. Plan See above. Attestations 2 Medical Necessity Statement*: Per hospitalist. Time Spent in Patient Care: 16 - 35 minutes (>than 50% of time sp ent in counselling and/or direct pt care on unit) . Coding Level of Care Code Acute Code for Chg Fwd Diagnoses End stage renal disease on dialysis N18.6; Z99.2
--- NOTE | 2023-10-15 09:07 | CT_ITS ---
WS: [id number] CT ABDOMEN PELVIS TECHNIQUE: Contrast-enhanced CT of the abdomen and pelvis with coronal and sagittal reformatted image s. CLINICAL INFORMATION: r inguinal hernuia, severe pain COMPARISON: None. DLP: 1098.[address] scans at [facility] use at least one of these dose optimization techniques: automated e xposure control; mA and/or kV adjustment per patient size (includes targeted exams where dose is matc hed to clinical indication); or iterative reconstruction. FINDINGS: Cardiomegaly. Moderate pericardial effusion. Patchy infiltrates with slight compressive atelectasis i n the lung bases. Recommend correlation for developing pneumonia. Hepatomegaly. Somewhat atrophic spl een. Adrenal glands appear normal. Scattered stool in the colon. Gaseous distention of the transverse colon likely due to ileus. RIGHT inguinal fluid containing hernia with large RIGHT hydrocele. Fluid along the RIGHT inguinal can al. Diffuse expansion of the inguinal canal with mass effect on the perineum. Enhancing multiseptated cystic lesion in the scrotum unchanged since the recent ultrasound measuring approximately 9 x 10 cm containing multiple septations with peripheral enhancement. Internal echogenicity on the prior ultra sound. Testicle is not well visualized and likely compressed peripherally or atrophic. Fluid along th e RIGHT inguinal canal appears slightly progressed since the recent CT 09/18/2023. Hepatic cirrhosis w ith evidence of portal venous hypertension. Diffuse hepatic congestion. Diffuse body wall anasarca. Moderate ascites. Diffuse scrotal edema. Protuberant umbilical hernia sim ilar in appearance to the prior examinations. Inguinal lymphadenopathy with pelvic and retroperitonea l lymphadenopathy similar to the prior study. Aortic calcification. Dense iliac calcification. Atroph ic kidneys bilaterally. Chronic spondylolysis L5 on S1 with grade 1 anterolisthesis. Gallbladder is contracted. Air-fluid lev el in the stomach. Normal GE junction. Thickening of the small bowel in the LEFT upper quadrant and m id abdomen likely reactive. Varices with evidence of portal venous hypertension in the upper abdomen. CT/CT abdomen pelvis w con* [id number] IMPRESSION: 1. RIGHT inguinal hernia with fluid along the RIGHT inguinal canal slightly pr ogressed compared to the prior CT with mass effect on the perineum and associat ed peripheral enhancement. Hernia sac measures approximately 9 x 9 cm with fred pheral enhancement. No herniated bowel. 2. Large RIGHT hydrocele with diffuse edema involving the scrotum. Cystic fred pheral enhancing intrascrotal lesion with multiple septations and central fluid attenuation. Testicle is not well visualized and appears to be either atrophic or compressed. Differential considerations are unchanged from the recent exami nations and include intratesticular neoplasm or possibly complex loculated pyoc elijah or hematocele. Cystic intrascrotal lesion measures 9 x 10 cm unchanged. Chr onic torsion with infarction is an additional consideration. 3. Increased fluid along the RIGHT inguinal canal likely due to peritoneal as cites. 4. Cirrhosis with hepatic congestion. 5. Moderate abdominal ascites with anasarca. 6. Atrophic kidneys. 7. Diffuse prominent inguinal lymphadenopathy with central low-attenuation bogdan nge. This is unchanged over multiple prior studies. 8. Bibasilar developing infiltrates with subsegmental atelectasis. 9. Moderate pericardial effusion.
--- NOTE | 2023-10-15 09:27 | PC.PHAR ---
HONG TAKES CARE OF PT MEDICATIONS. UNABLE TO CONTACT-MED REC DONE VIA MED LIST, FILL DATES, NOTES, AND PHARMACY VERIFICATION.
[2023-10-15] MEDS: iohexol 350 mg/mL 500 mL Btl (per mL) IV (10:26)
[2023-10-15] MEDS: carvedilol 25 mg Tablet 37.5 MG PO ×3 (12:29→23:13)
--- NOTE | 2023-10-15 12:40 | PC.NURSE ---
Report received from JAGUAR Eddy. Care assumed.
[2023-10-15] MEDS: HYDROmorphone 1 mg/mL INJ 1 mL 0.5 MG IVP ×3 (12:47→21:06)
--- NOTE | 2023-10-15 14:50 | PC.NURSE ---
Pt trasnported to Dialysis room om MEdusrg via W/C. Telemetry on. Amos Romero updated. Receiving Medsurg nurse, Trinity to call for report.
--- NOTE | 2023-10-15 14:55 | P.PN_ITS ---
Subjective 2 Subjective: Patient was seen this morning, denies any fevers, chills, no shortness of breath, no cough his complaint is right inguinal pain, he has a inguinal hernia he tells me that they do not want to operate on so it chronically hurts him he tells me, he tells me that the morphine does help, but the pain returns, denies any lack of stooling, no bloody or black stools, is passing gas, Vitals/I&O/Wt Last Vital Signs Temp 97.7 F 10/15/23 08:00 Pulse 78 10/15/23 13:00 Resp 15 10/15/23 13:00 BP 123/67 10/15/23 13:00 Pulse Ox 94 10/15/23 13:00 O2 Del Method Nasal Cannula 10/15/23 13:00 O2 Flow Rate 2 10/15/23 13:00 10/14/23 10/15/23 10/15/23 22:59 06:59 14:59 Intake Total 740 / 740 300 / 300 Output Total 2554 / 2554 Balance -1814 / -1814 300 / 300 Weight last 48 hrs Weight 88.592 kg Weight 88.587 kg Weight 88.961 kg Weight 88.451 kg Physical Exam 2 Const: COMMON NORMALS: no acute distress and patient oriented x3 Resp: COMMON NORMALS: normal respiratory effort, No retractions, No use of accessory muscles and clear to auscultation bilaterally AUSCULTATION: clear to auscultation bilaterally Cardio: COMMON NORMALS: regular rate, regular rhythm, S1 normal heart sound present and S2 normal heart sound present RATE: regular rate RHYTHM: r egular rhythm HEART SOUNDS: S1 normal heart sound present and S2 normal heart sound present GI: COMMON NORMALS: Normal to inspection, nondistended, normoactive bowel sounds present, non-tender and no bruits OTHER: Large right right hydrocele, right inguinal hernia Extremity: COMMON NORMALS: no pedal edema Neuro: COMMON NORMALS: patient oriented x3 Psych: COMMON NORMALS: mental status grossly normal Data 10/15/23 04:37 10/15/23 04:37 A&P Assessment and plan (1) Fluid overload: Qualifiers: Hypervolemia type: unspecified Qualified Code(s): E87.70 - Fluid overload, unspecified (2) End-stage renal disease needing dialysis: (3) Acute hyperkalemia: Plan 43-year-old male with known CKD on hemodialysis, presenting today after having missed 2 dialysis sessions. He has hyperkalemia, hypervolemic on exam Status post dialysis, will receive another session of dialysis today Nephrology consulted from the emergency room. Recheck labs History of hypertension which has been difficult to control in the past. Continuing home doses of amlodipine, carvedilol, hydralazine and Imdur for blood pressure management during hospital admission Right inguinal pain, right hydrocele CT scan abdomen pelvis Currently on 2 L, monitor ? Abdominal distention, with history of ascites liver cirrhosis DVT prophylaxis: Heparin subcutaneously Full code Attestations 2 Medical Necessity Statement*: Patient requires hospitalization for missing dialysis, right inguinal pain Diagnoses Fluid overload E87.70 Hypervolemia type: unspecified End-stage renal disease needing dialysis N18.6; Z99.2 Acute hyperkalemia E87.5
[2023-10-15] MEDS: heparin, porcine 1,000 unit/mL INJ 10 mL 1000 UNIT IV ×2 (15:00)
--- NOTE | 2023-10-15 15:17 | PC.NURSE ---
Report given via telephone to Amos Petersen on [facility] for room 259-2.
--- NOTE | 2023-10-15 21:23 | PC.NURSE ---
SCDs placed on patient. Approximately one hour later, patient asked them to be removed.
--- NOTE | 2023-10-15 21:24 | PC.NURSE ---
Patient given urinal to obtain urine sample, but patient says he does not make any urine.
[2023-10-15] MEDS: atorvastatin 40 mg Tablet PO ×2 (23:13)
--- NOTE | 2023-10-15 23:20 | PC.NURSE ---
Addendum entered by Berenice Giraldo RN 10/15/23 23:23: Dr. Vilelgas called back at 23:23 and ordered PRN Robitussin. Original Note: Upon rounding, patient asking for something for a cough. Voalte message sent to notify Dr. Villegas of this at 22:50 with [address] response. [address] Dr. Villegas through the router operator radial at 23:20. She did not answer and I left a voicemail asking for her to call me back.
[2023-10-15] MEDS: guaiFENesin-dextromethorphan UDC 10 mL PO (23:32)
[2023-10-16] VITALS (9 sets, daily range): BP systolic 140–156; BP diastolic 73–85; PULSE 75–84; RESP 14–21; TEMP 36.4–37; O2SAT 92–97
[2023-10-16] MEDS: HYDROmorphone 1 mg/mL INJ 1 mL 0.5 MG IVP ×3 (01:49→11:12)
[2023-10-16 06:09] LABS: Alanine Aminotransferase 7 U/L (0-41); Alkaline Phosphatase 125 U/L (40-130); Anion Gap 15.3 (5-19); Aspartate Amino Transferase 12 U/L (0-40); Blood Urea Nitrogen 22 mg/dL (6-20); Calcium 9.5 mg/dL (8.5-10.5); Carbon Dioxide 28 mmol/L (22-29); Chloride 99 mmol/L (98-107); Creatinine Clr Calc Pharmacy 19.8616; Globulin 3.4 g/dL (1.3-4.6); Glomerular Filtration Rate 10.8 mL/min (90-130); Glucose 84 mg/dL (65-115); Magnesium 1.8 mg/dL (1.7-2.3); Osmolality Calculated 287 mOsm/kg (285-295); Phosphorus 5.3 mg/dL (2.5-4.5); Potassium 5.3 mmol/L (3.5-5.1); Sodium 137 mmol/L (136-145); Total Bilirubin 0.4 mg/dL (0.15-1.2); Total Protein 6.4 g/dL (6.6-8.7)
[2023-10-16] MEDS: aspirin 81 mg EC Tablet PO (08:27)
[2023-10-16] MEDS: isosorbide mononitrate ER 60 mg Tablet 240 MG PO (08:27)
[2023-10-16] MEDS: amlodipine 10 mg Tablet PO (08:27)
[2023-10-16] MEDS: hyDRALAzine 50 mg Tablet 100 MG PO (08:27)
[2023-10-16] MEDS: guaiFENesin-dextromethorphan UDC 10 mL PO (08:28)
[2023-10-16] MEDS: carvedilol 25 mg Tablet 37.5 MG PO (08:28)
[2023-10-16] MEDS: heparin 5,000 unit/mL INJ 1 mL 5000 UNIT SUBCUT (08:28)
[2023-10-16] MEDS: acetaminophen 325 mg Tablet 650 MG PO (08:28)
--- NOTE | 2023-10-16 09:00 | PC.CHAP ---
Pastoral Care Encounter/Spiritual Assessment Type of Contact [] Declined lease administrator visit [] Patient/Family/Request visit [] Outpatient visit [] Follow-up visit [] Physician referral [] Code/Alert [] Routine visit [] Staff referral [] Actively dying [] Patient sleeping [] Family support [] [] Out of room [] Palliative care [] [x] Receiving care in room [] Pre-surgical visit [] Trauma [] Long length of stay [] ICU visit [] Other: Relational/Emotional Strength [] Patient feels connected with others/family/visitors/staff [] Distress [] Loneliness/isolation [] Abandonment Spirituality of Patient [] Person of Ct [] Attends Yazdanism of their Ct [] Believes in Prayer [] Reads Bible or Anabaptism materials [] There are Spiritual issues to be addressed Cable Splicer Apprentice Interventions [] Prayer [] Active listening [] Non-anxious presence [] Spiritual/emotional support [] Crisis/trauma care [] Spiritual counseling [] Bereavement support [] Provided bereavement packet [] Provided Bible/devotional materials [] Provided toy/stuffed animal, coloring book to patient or family member [] Provided Communion [] Anointing/[place] [] Salvation [] Completed spiritual assessment [] Other: Impact on Illness or Injury [] Angry [] Fearful [] Anxious [] Often cries [] Exhaustion [] Unable to work [] Unable to attend mandaen [] Unable to walk/stand [] Unable to read [] Unable to drive [] Unable to eat/drink [] Unable to sleep [] Unable to be with family [] Patient intubated [] Other: Summary Time spent with patient
--- NOTE | 2023-10-16 09:26 | PC.SOCIAL ---
IMM Update pg 2 of IMM updated and reviewed w/ patient. Copy provided and copy dated, initialed and placed in chart.
--- NOTE | 2023-10-16 09:45 | P.PN_ITS ---
Subjective 2 Subjective: on 2L NC Medications: Reviewed: Yes Vitals/I&O/Wt Last Vital Signs Temp 98.6 F 10/16/23 07:44 Pulse 79 10/16/23 08:28 Resp 19 H 10/16/23 08:28 BP 143/80 10/16/23 07:44 Pulse Ox 97 10/16/23 08:28 O2 Del Method Nasal Cannula 10/16/23 08:28 O2 Flow Rate 2 10/16/23 08:28 10/15/23 10/16/23 10/16/23 22:59 06:59 14:59 Intake Total 740 / 1440 1000 / 2440 360 / 360 Output Total 2501 / 2501 Balance -1761 / -1061 1000 / -61 360 / 360 Weight last 48 hrs Weight 92.578 kg Weight 89.6 kg Weight 87.997 kg Weight 88.592 kg Weight 88.587 kg Weight 88.961 kg Weight 88.451 kg Physical Exam 2 Narrative: Vital signs noted and are normal. Patient sitting up uncomfortable no respiratory distress. Using nasal cannula oxygen HEENT normocephalic atraumatic. Neck is supple Lungs wheezes and rhonchi.- PER EPORT Heart regular positive S1-S2.- PER REPORT Extremities left upper extremity AV fistula with good thrill and bruit.- PER REPORT Legs 1+ edema. Neuro awake alert oriented x 3 Data 10/15/23 04:37 10/16/23 05:26 A&P Assessment and plan (1) End stage renal disease on dialysis: 43-year-old gentleman ESRD, COPD, liver cirrhosis. Patient presented with shortness of breath and hyperkalemia after missing 2 dialysis sessions. . Patient normally gets dialysis on a Thursday schedule. s/p HD yesterday , Next HD tomorrow Phosphorus improved. 2. Anemia : Hemoglobin acceptable at 9.7. Patient may need Epogen. 3. HTN : bp controlled Patient encouraged to take medications and not miss dialysis. Consent for hemodialysis and telehealth obtained from the patient. Patient was seen using audiovisual equipment with the help of the nurse as a telehealth visit. Plan See above. Attestations 2 Medical Necessity Statement*: per medicine Coding Level of Care Code Acute Code for Chg Fwd Diagnoses End stage renal disease on dialysis N18.6; Z99.2
--- NOTE | 2023-10-16 11:42 | P.DS_ITS ---
Discharge Providers Date of Admission: 10/14/23 21:34 Date of Discharge: October 16, 2023 Attending Provider at Admission: Kerwin Platt MD Attending Provider at Discharge: Tunde Umana MD Primary Care Provider: Delio Salazar MD Diagnoses at Discharge Discharge Diagnosis (1) End stage renal disease on dialysis: Status: Acute Reason for Visit Reason for Visit: SOB Hospital Course Hospital Course Mal Gibbs is a 43 year old male with a past medical history of chronic renal failure on HD, current smoker, COPD, liver cirrhosis, requiring recurrent paracentesis, hypertension, hyperlipidemia, who presents [facility] due to increased shortness of breath increased abdominal distention, anasarca, after he missed dialysis the last two times. He has hyperkalemia and fluid overload, admitted for urgent HD now. h/o recurrent hospital admissions for the same. This is a 43-year-old male, who presents [facility] due to fluid overload, hyperkalemia hypervolemia secondary to missed dialysis session, received inpatient dialysis, overall clinically improved, discharged with instructions to resume regular dialysis days, remain compliant with dialysis, discussed morbidity and mortality associated with missed dialysis, he voiced understanding, all questions answered In terms of right inguinal pain, right testicular pain CT/CT abdomen pelvis w con* [id number] IMPRESSION: 1. RIGHT inguinal hernia with fluid along the RIGHT inguinal canal slightly progressed compared to the prior CT with mass effect on the perineum and associated peripheral enhancement. Hernia sac measures approximately 9 x 9 cm with peripheral enhancement. No herniated bowel. 2. Large RIGHT hydrocele with diffuse edema involving the scrotum. Cystic peripheral enhancing intrascrotal lesion with multiple septations and central fluid attenuation. Testicle is not well visualized and appears to be either atrophic or compressed. Differential considerations are unchanged from the recent examinations and include intratesticular neoplasm or possibly complex loculated pyocele or hematocele. Cystic intrascrotal lesion measures 9 x 10 cm unchanged. Chronic torsion with infarction is an additional consideration. 3. Increased fluid along the RIGHT inguinal canal likely due to peritoneal ascites. 4. Cirrhosis with hepatic congestion. 5. Moderate abdominal ascites with anasarca. 6. Atrophic kidneys. 7. Diffuse prominent inguinal lymphadenopathy with central low-attenuation change. This is unchanged over multiple prior studies. 8. Bibasilar developing infiltrates with subsegmental atelectasis. 9. Moderate pericardial effusion. -I had a detailed discussion with patient about his CT scan findings ? He tells me that he has seen multiple surgeons here in [place], and also at [facility], and that right now he is not a surgical candidate as per their discussion with him ? Currently he is having bowel movements, passing gas, pain is minimal, no sudden worsening of his pain, but he does tell me that intermittently does get worse at times ? We did discuss the possibility of bowel herniation with his right inguinal hernia, risk of bowel ischemia, morbidity and mortality associated -In addition I have also had a discussion with him about his large right hydrocele -For now he just wants to continue medical interventions, discussed pain control, I have discharged him on a short supply of oxycodone to be used sparingly for pain, do not drive or operate heavy machinery or drink while taking medication ? I did discuss with him that if suddenly that his right inguinal pain gets worse or unrelenting or he develops lack of stooling, or lack of flatus, he should go immediately to the emergency room as this could be an indicator of life-threatening condition, he voiced understanding, all questions answered -Referral sent to urology Physical Exam Const: COMMON NORMALS: no acute distress and patient oriented x3 Resp: COMMON NORMALS: normal respiratory effort, No retractions, No use of accessory muscles and clear to auscultation bilaterally AUSCULTATION: clear to auscultation bilaterally Cardio: COMMON NORMALS: regular rate, regular rhythm, S1 normal heart sound present and S2 normal heart sound present RATE: regular rate RHYTHM: regular rhythm HEART SOUNDS: S1 normal heart sound present and S2 normal heart sound present GI: COMMON NORMALS: Normal to inspection, nondistended, normoactive bowel sounds present and non-tender Extremity: COMMON NORMALS: no pedal edema Neuro: COMMON NORMALS: patient oriented x3 Psych: COMMON NORMALS: mental status grossly normal Discharge Data Studies Completed and Pending Completed Studies During Hospitalization Category Date Time Status CT abdomen pelvis w con* [id number] Stat Cat Scan 10/15/23 09:07 Completed XR chest 1V portable [id number] Stat Exams 10/14/23 18:35 Completed Pending at discharge Category Date Time Status Comprehensive Metabolic Panel AM LABS Lab 10/17/23 04:00 Ordered Comprehensive Metabolic Panel AM LABS Lab 10/18/23 04:00 Ordered Magnesium AM LABS Lab 10/17/23 04:00 Ordered Magnesium AM LABS Lab 10/18/23 04:00 Ordered Phosphorus AM LABS Lab 10/17/23 04:00 Ordered Phosphorus AM LABS Lab 10/18/23 04:00 Ordered Urinalysis Routine Lab 10/14/23 23:27 Uncollected Radiology Impressions Chest X-Ray 10/14/23 18:35 IMPRESSION: Cardiomegaly without pulmonary edema. Abdomen/Pelvis CT 10/15/23 09:07 IMPRESSION: 1. RIGHT inguinal hernia with fluid along the RIGHT inguinal canal slightly progressed compared to the prior CT with mass effect on the perineum and associated peripheral enhancement. Hernia sac measures approximately 9 x 9 cm with peripheral enhancement. No herniated bowel. 2. Large RIGHT hydrocele with diffuse edema involving the scrotum. Cystic peripheral enhancing intrascrotal lesion with multiple septations and central fluid attenuation. Testicle is not well visualized and appears to be either atrophic or compressed. Differential considerations are unchanged from the recent examinations and include intratesticular neoplasm or possibly complex loculated pyocele or hematocele. Cystic intrascrotal lesion measures 9 x 10 cm unchanged. Chronic torsion with infarction is an additional consideration. 3. Increased fluid along the RIGHT inguinal canal likely due to peritoneal ascites. 4. Cirrhosis with hepatic congestion. 5. Moderate abdominal ascites with anasarca. 6. Atrophic kidneys. 7. Diffuse prominent inguinal lymphadenopathy with central low-attenuation change. This is unchanged over multiple prior studies. 8. Bibasilar developing infiltrates with subsegmental atelectasis. 9. Moderate pericardial effusion. Laboratory Results WBC 4.70 10^3/uL (3.29-11.43) 10/15/23 04:37 RBC 3.63 10^6/uL (3.85-5.65) L 10/15/23 04:37 Hgb 9.70 g/dL (11.27-16.99) L 10/15/23 04:37 Hct 30.8 % (37-53) L 10/15/23 04:37 MCV 84.8 fl (82-101) 10/15/23 04:37 MCH 26.7 pg (27-33) L 10/15/23 04:37 MCHC 31.5 g/dL (30-55) 10/15/23 04:37 RDW 18.2 % (12.1-15.1) H 10/15/23 04:37 Plt Count 193 10^3/cmm (157-399) 10/15/23 04:37 MPV 10.4 fL (7.4-10.4) 10/15/23 04:37 Neut % (Auto) 70.7 % 10/15/23 04:37 Lymph % (Auto) 9.1 % 10/15/23 04:37 Mineral % (Auto) 8.9 % 10/15/23 04:37 Eos % (Auto) 9.4 % 10/15/23 04:37 Baso % (Auto) 1.7 % 10/15/23 04:37 Neut # (Auto) 3.32 10^3/uL (1.8-7.7) 10/15/23 04:37 Lymph # (Auto) 0.4 10^3/uL (0.8-4.8) L 10/15/23 04:37 Mineral # (Auto) 0.4 10^3/uL (0.2-0.9) 10/15/23 04:37 Eos # (Auto) 0.4 10^3/uL (0.0-0.8) 10/15/23 04:37 Baso # (Auto) 0.1 10^3/uL (0.0-0.1) 10/15/23 04:37 Nucleated RBC % (auto) 0 % 10/15/23 04:37 Nucleated RBCs # 0.0 /100WBC 10/15/23 04:37 Specimen Type Arterial 10/14/23 18:35 Sample Site Radial, right 10/14/23 18:35 ABG pH 7.33 (7.35-7.45) L 10/14/23 18:35 ABG pCO2 48.3 mmHg (35-45) H 10/14/23 18:35 ABG pO2 78.2 mmHg (80.0-100.0) L 10/14/23 18:35 ABG HCO3 25.4 mmol/L (22-26) 10/14/23 18:35 ABG O2 Saturation 95.1 10/14/23 18:35 ABG Base Excess -0.8 mmol/L (-2.0-2.0) 10/14/23 18:35 Alexei Test Pos 10/14/23 18:35 A-a O2 Gradient 1.5 mmHg (5-10) L 10/14/23 18:35 Hematocrit 29.3 % (42-52) L 10/14/23 18:35 Hgb O2 Saturation 92.0 % (95-100) L 10/14/23 18:35 Carboxyhemoglobin 2.5 %THgb (0.4-20.1) 10/14/23 18:35 Methemoglobin 0.7 % (0.4-1.5) 10/14/23 18:35 Total Hemoglobin 9.6 g/dL (14-18) L 10/14/23 18:35 Sodium 130.0 mmol/L (131-143) L 10/14/23 18:35 Potassium 7.1 mmol/L (3.5-5.0) H 10/14/23 18:35 Glucose 63.0 mg/dL (70-115) L 10/14/23 18:35 Ionized Calcium 1.3 mmol/L (1.1-1.4) 10/14/23 18:35 O2 Delivery Device Nc 10/14/23 18:35 O2 Liters/Min 4.0 % 10/14/23 18:35 Copyright Manager ID Walci 10/14/23 18:35 Sodium 137 mmol/L (136-145) 10/16/23 05:26 Potassium 5.3 mmol/L (3.5-5.1) H 10/16/23 05:26 Chloride 99 mmol/L (98-107) 10/16/23 05:26 Carbon Dioxide 28 mmol/L (22-29) 10/16/23 05:26 Anion Gap 15.3 (5-19) 10/16/23 05:26 BUN 22 mg/dL (6-20) H 10/16/23 05:26 Creatinine 5.8 mg/dL (0.7-1.2) H* 10/16/23 05:26 GFR Calculation 10.8 mL/min (90-130) L 10/16/23 05:26 Glucose 84 mg/dL (65-115) 10/16/23 05:26 Estimat Average Glucose 77 10/15/23 04:37 Hemoglobin A1c 4.3 % (4.0-6.0) 10/15/23 04:37 Calculated Osmolality 287 mOsm/kg (285-295) 10/16/23 05:26 Calcium 9.5 mg/dL (8.5-10.5) 10/16/23 05:26 Phosphorus 5.3 mg/dL (2.5-4.5) H 10/16/23 05:26 Magnesium 1.8 mg/dL (1.7-2.3) 10/16/23 05:26 Total Bilirubin 0.4 mg/dL (0.15-1.2) 10/16/23 05:26 AST 12 U/L (0-40) 10/16/23 05:26 ALT 7 U/L (0-41) 10/16/23 05:26 Alkaline Phosphatase 125 U/L (40-130) 10/16/23 05:26 Total Protein 6.4 g/dL (6.6-8.7) L 10/16/23 05:26 Albumin 3.0 g/dL (3.5-5.2) L 10/16/23 05:26 Globulin 3.4 g/dL (1.3-4.6) 10/16/23 05:26 Triglycerides 50 mg/dL (0-150) 10/15/23 04:37 Cholesterol 78 mg/dL (0-200) 10/15/23 04:37 LDL Cholesterol, Calc 32 mg/dL (50-129) L 10/15/23 04:37 HDL Cholesterol 36 mg/dL (60-100) L 10/15/23 04:37 LDL/HDL Ratio 0.89 RATIO (0.00-3.22) 10/15/23 04:37 Cholesterol/HDL Ratio 2.17 mg/dL (1.0-5.00) 10/15/23 04:37 Procalcitonin 0.36 ng/mL (0-0.5) 10/15/23 04:37 TSH 3.03 uIU/mL (0.27-4.20) 10/14/23 18:53 Hep Bs Antigen Non-reactive (Nonreactive) 10/14/23 18:53 Vitals Last Vital Signs Temp 98.6 F 10/16/23 07:44 Pulse 79 10/16/23 08:28 Resp 19 H 10/16/23 11:12 BP 143/80 10/16/23 07:44 Pulse Ox 97 10/16/23 11:12 O2 Del Method Nasal Cannula 10/16/23 08:28 O2 Flow Rate 2 10/16/23 08:28 Discharge Plan Discharge Patient Disposition: Home Condition: Stable Prescriptions: Continued (DME) DME - BIPAP See Rx Instructions .Route .MEDSUPPLY Qty: 1 0RF Rx Instructions: Inspiratory Pressure: 16mmHg Expiratory Pressure: 8 mmHg Will need oxygen bled in to the machine to maintain sats >/= 90%. (DME) DME - Oxygen See Rx Instructions .Route .MEDSUPPLY Qty: 1 0RF Rx Instructions: Supplemental Oxygen bled into BIPAP at 2-3L to maintain oxygen sats at >/= 90%. Auryxia 210 mg iron Tablet See Rx Instructions .ROUTE .COMPLEX Rx Instructions: 420 mg (2 tabs) orally three times a day and 210mg (1 tab) with snacks aspirin 81 mg tablet,delayed release (DR/EC) 81 mg PO QAM pantoprazole 40 mg tablet,delayed release (DR/EC) 40 mg PO BEDTIME isosorbide mononitrate 120 mg tablet extended release 24 hr 240 mg PO QAM RenaPlex-D 800 mcg-12.5 mg -2,000 unit tablet 1 tab PO QAM carvedilol 25 mg tablet 37.5 mg PO Q12H atorvastatin 40 mg tablet 40 mg PO BEDTIME amlodipine 10 mg tablet 10 mg PO QAM hydralazine 100 mg tablet 100 mg PO Q8H prasugrel 10 mg tablet 10 mg PO QAM cyclobenzaprine 10 mg tablet 10 mg PO BID PRN (Reason: Muscle Spasm) oxycodone 5 mg tablet 5 mg PO Q8H PRN (Reason: Pain, Severe) 5 Days Qty: 15 0RF albuterol sulfate 90 mcg/actuation Hfa Aerosol Inhaler 2 puff INHALATION QID PRN (Reason: Shortness Of Breath) ondansetron 4 mg tablet,disintegrating 4 mg PO Q8H PRN (Reason: nausea and vomiting) Qty: 10 0RF Discontinued clonidine 0.2 mg/24 hr patch weekly 1 patch topical .WKLY methocarbamol 500 mg tablet 500 mg PO BID minoxidil 2.5 mg tablet 10 mg PO TID Discharge Orders: Discharge Order (Routine); Ordered 10/16/23 Ordered By: Tunde Umana Referrals: Delio Salazar MD [Primary Care Provider] - 10/23/23 1:30 pm (Joycelyn OSBORNEP) Discharge Diet: Cardiac Discharge Activity: Resume usual activity Patient Instructions: Opioid Safety Activity Restrictions/Additional Instructions: -please use oxycodone sparingly for pain Discharge Attestations Time Spent in Discharge Care*: greater than 30 min Status at Discharge: Cognitive status at discharge: cognitively intact , Behavioral status at discharge: cooperative , Quality Metrics Clinical Quality Measures [ No reported AMI, CVA or VTE this stay] Coding Level of Care Code 92907 Total time (in minutes) for Discharge: 45 Diagnoses End stage renal disease on dialysis N18.6; Z99.2
== END 2023-10-16 14:30 | disposition home or self-care (01) | DRG 640 ==
LOC: ER 21:01 → ICU 21:34 → MEDSURG 10-15 15:32
PROVIDERS: Internal Medicine; Internal Medicine Nephrology; Admitting Provider Student in an Organized Health Care Education/Training Program; Emergency Provider Emergency Medicine; PCP Family Medicine; Visit Provider Family Medicine
DX: E87.70 Fluid overload, unspecified (principal); N18.6 End stage renal disease; I13.2 Hypertensive heart and chronic kidney disease with heart failure and with stage 5 chronic kidney disease, or end stage renal disease; J96.11 Chronic respiratory failure with hypoxia; I50.9 Heart failure, unspecified; F17.210 Nicotine dependence, cigarettes, uncomplicated; Z99.2 Dependence on renal dialysis; Z91.158 Patient's noncompliance with renal dialysis for other reason; Z99.81 Dependence on supplemental oxygen; J44.9 Chronic obstructive pulmonary disease, unspecified; Z86.711 Personal history of pulmonary embolism; Z86.16 Personal history of COVID-19; K74.60 Unspecified cirrhosis of liver; K42.9 Umbilical hernia without obstruction or gangrene; E78.5 Hyperlipidemia, unspecified; F32.A Depression, unspecified; I27.20 Pulmonary hypertension, unspecified; F41.9 Anxiety disorder, unspecified; I25.10 Atherosclerotic heart disease of native coronary artery without angina pectoris; Z95.5 Presence of coronary angioplasty implant and graft; E87.5 Hyperkalemia; E83.39 Other disorders of phosphorus metabolism; K40.90 Unilateral inguinal hernia, without obstruction or gangrene, not specified as recurrent; D63.1 Anemia in chronic kidney disease
CPT/HCPCS: 36415; 36600; 71045; 74177; 80051; 80053; 80061; 82330; 82805; 83036; 83735; 84100; 84145; 84443; 85025; 87340; 90935; 93005; 96372; 96374; 96375; 99285; C9113; J0612; J1170; J1644; J1815; J2270; Q3014; Q9967

== ENCOUNTER 2023-10-21 12:28 | Day surgery (SDC) | payer MEDICARE, MEDICAID, SELFPAY ==
[2023-10-21 12:43] VITALS: BP 148/71; PULSE 76; RESP 16; TEMP 37; O2SAT 90; BMI 25.7
--- NOTE | 2023-10-21 12:46 | US_ITS ---
WS: [id number] ULTRASOUND-GUIDED PARACENTESIS CLINICAL INFORMATION: cirrhosis of liver without ascites; hepatic cirrhosis COMPARISON: None. Procedure Informed consent: The risks, benefits, and alternatives of the procedure were discussed with the mariah ent. Verbal and written consent was obtained. Timeout: A timeout was performed to confirm the correct patient, procedure, and site. Preparation: A suitable skin site was identified. The patient was prepped and draped in usual sterile fashion. Lidocaine 1% was used for local anesthesia. Catheter: 4 Indonesian One-step SpaceListeh catheter. Side: LEFT lower quadrant. Fluid Volume: 2750 ml Color: Clear yellow DISPOSITION: Discarded safely. Complications: None. Patient disposition: Discharged from the department in stable condition. US/US paracentesis abd w [id number] IMPRESSION: Uncomplicated ultrasound-guided paracentesis. Removal of 2750 cc
[2023-10-21 15:03] LABS: Mononuclear #, Pertinoneal Fl 0.296 10^3/uL; Polynuclear # Cells, Perit 0.063 10^3/uL; RBC Pertioneal Fluid 23 10^3/uL; WBC Peritoneal Fluid 359 /uL
[2023-10-21 15:04] LABS: Appearance, Peritoneal Fluid Cloudy (Clear); Color, Peritoneal Fluid Amber (Pale Yellow); Cyto Order Verification Order Verified
[2023-10-21 15:28] LABS: Albumin Peritoneal Fluid 2.3 g/dL; Total Protein Peritoneal Fluid 4.2 g/dL
== END 2023-10-21 14:45 | disposition home or self-care (01) ==
LOC: GILAB 12:28
PROVIDERS: Radiology Neuroradiology; PCP Family Medicine; Visit Provider Internal Medicine
PROC: (CPT 49082; principal; 2023-10-21 13:30)
DX: K74.60 Unspecified cirrhosis of liver (principal)
CPT/HCPCS: 49083; 80503; 82042; 84157; 87070; 87075; 87205; 88112; 89050

== ENCOUNTER 2023-10-24 01:10 | Emergency (ER) | payer MEDICARE, MEDICAID, SELFPAY ==
[2023-10-24 01:41] VITALS: BP 113/66; PULSE 71; RESP 18; TEMP 36.6; O2SAT 94; BMI 25.7
--- NOTE | 2023-10-24 02:44 | W.ED.ABDPA2 ---
HPI - Abdominal Pain General: Chief Complaint: Abdominal Pain Stated Complaint: abd pain Time Seen by Provider: 10/24/23 02:30 History of Present Illness: The patient presents with a chief complaint of pain, specifically cramping, which started yesterday morning. The patient has a history of hernia, which has been ongoing for a while, and is not eligible for surgery. They are currently waiting to see pain management for the hernia. The patient reports that the cramping has been off and on since it started. The patient has a history of end-stage kidney failure and is on dialysis, which is scheduled for Tuesdays, , and Saturdays. They also have a functioning liver, but it is being affected by the kidney issues. The patient undergoes pericentesis every Thursday to remove fluid. The patient has been receiving heparin shots, with the last dose causing bruising. They have been given pain medication for the hernia in the past, including morphine and possibly Dilaudid. The patient has a reducible hernia in the abdomen and another one in the scrotum. Review of Systems General: Reports: 10 or more systems reviewed and unremarkable except in HPI and below PFSH ED PFSH: Medical History Acute and chronic respiratory failure with hypoxia Patient under care of multiple providers Hypertensive urgency History of cardiovascular stress test 07/2022 at [facility] perfusion imaging probably normal, no reversible defects, small fixed defect in apical anterior wall, EF 54%, nonischemic response to stress by EKG criteria Depression Epididymitis 06/2022 Pulmonary hypertension Uses bilevel positive airway pressure (BPAP) ventilation at home Umbilical hernia History of home oxygen therapy History of coronary angiogram 11/2021 - patent stent Inguinal hernia Anxiety Chronic respiratory failure on home oxygen and bipap Low back pain Nicotine dependence, cigarettes, with other nicotine-induced disorders Generalized anxiety disorder with panic attacks ESRD on dialysis Atherosclerosis of coronary artery Stent and balloon angioplasty to proximal 1 OM branch Chronic abdominal pain COVID 05/25 Hypertensive emergency recurrent episodes Urethral stricture Abdominal ascites history of intermittent paracentesis, transudative fluid; prior work up has included negative biopsy, ceruloplasmin level normal, low iron, high ferritin, normal TIBC, negative HIV, hepatitis panel negative, JESÚS/SCL 70/double-stranded DNA antibodies negative, Alpha-fetoprotein level unremarkable, nonalcoholic by history, has hepatomegaly and splenomegaly Pulmonary embolism 09/21 CTA inconclusive for very tiny peripheral LEFT lower lobe pulmonary artery sub segmental emboli versus poor opacification. Anemia chronic kidney disease Congestive heart failure preserved ejection fraction COPD (chronic obstructive pulmonary disease) Arteriovenous fistula for hemodialysis in place, secondary Degenerative disc disease, lumbar Hypertension uncontrolled Surgical History Stented coronary artery H/O hand surgery Amputation right 2&3 fingers 2017 History of adenoidectomy Family History Other Hypertension Social History Smoking and tobacco/nicotine status: current every day tobacco/nicotine user cigarettes Packs smoked per day: 1.5 Years cigarettes smoked: 21 [ Other cigarette details: started age 20, currently 0.5ppd ] Alcohol intake: never Substance/Drug Use: never Number of children: 3 Current occupational status: disabled Do you think of yourself as: Straight/Heterosexual Physical Exam Const: COMMON NORMALS: no acute distress, patient oriented x3 and healthy appearing HENMT: COMMON NORMALS: normocephalic and atraumatic HEAD & SCALP: normocephalic and atraumatic Neck/C-Spine: COMMON NORMALS: full ROM and supple Chest: COMMONS NORMALS: normal inspection of the chest Resp: COMMON NORMALS: normal respiratory effort Cardio: COMMON NORMALS: regular rate RATE: regular rate GI: COMMON NORMALS: Soft to palpation and no masses PALPATION: Yes Soft to palpation OTHER: Right inguinal hernia noted with tenderness no signs of strangulation. Significant distention of the scrotum. Easily reducible umbilical hernia. Extremity: COMMON NORMALS: normal to inspection and full ROM Neuro: COMMON NORMALS: patient oriented x3, moves all extremities and no focal motor deficits Psych: COMMON NORMALS: mental status grossly normal, Normal thought process present and cooperative THOUGHT PROCESS: Normal thought process present Skin: COMMON NORMALS: no rashes or lesions noted and no wounds GENERAL SKIN EXAM: no rashes or lesions noted Course Vital Signs: Vital signs: Vital Signs Temperature 98 F 10/24/23 01:41 Pulse Rate 71 10/24/23 01:41 Respiratory Rate 18 10/24/23 01:41 Blood Pressure 113/66 10/24/23 01:41 Pulse Oximetry 94 10/24/23 01:41 MDM - Abdominal Pain Medical Decision Making 43-year-old male with a past medical history of ESRD, inguinal hernia, abdominal hernia, and chronic abdominal pain. Patient is seen quite frequently in this emergency department for abdominal pain secondary to his inguinal hernia. Patient's vital signs are stable. Physical exam are consistent with patient's baseline. Patient's pain significantly reduced with opiate intervention. Patient agreed to follow-up next week with his primary care physician. Patient is due to be seen by dialysis tomorrow. Patient discharged home in improved condition. No radiology studies performed this visit Discharge Plan Discharge Condition: Stable Prescriptions: No Action (DME) DME - BIPAP See Rx Instructions .Route .MEDSUPPLY Qty: 1 0RF Rx Instructions: Inspiratory Pressure: 16mmHg Expiratory Pressure: 8 mmHg Will need oxygen bled in to the machine to maintain sats >/= 90%. (DME) DME - Oxygen See Rx Instructions .Route .MEDSUPPLY Qty: 1 0RF Rx Instructions: Supplemental Oxygen bled into BIPAP at 2-3L to maintain oxygen sats at >/= 90%. Auryxia 210 mg iron Tablet See Rx Instructions .ROUTE .COMPLEX Rx Instructions: 420 mg (2 tabs) orally three times a day and 210mg (1 tab) with snacks aspirin 81 mg tablet,delayed release (DR/EC) 81 mg PO QAM Patient Comments: pt takes qhs on wednesdays pantoprazole 40 mg tablet,delayed release (DR/EC) 40 mg PO BEDTIME isosorbide mononitrate 120 mg tablet extended release 24 hr 240 mg PO QAM RenaPlex-D 800 mcg-12.5 mg -2,000 unit tablet 1 tab PO QAM carvedilol 25 mg tablet 37.5 mg PO Q12H atorvastatin 40 mg tablet 40 mg PO BEDTIME amlodipine 10 mg tablet 10 mg PO QAM hydralazine 100 mg tablet 100 mg PO Q8H prasugrel 10 mg tablet 10 mg PO QAM cyclobenzaprine 10 mg tablet 10 mg PO BID PRN (Reason: Muscle Spasm) albuterol sulfate 90 mcg/actuation Hfa Aerosol Inhaler 2 puff INHALATION QID PRN (Reason: Shortness Of Breath) ondansetron 4 mg tablet,disintegrating 4 mg PO Q8H PRN (Reason: nausea and vomiting) Qty: 10 0RF Referrals: Delio Salazar MD [Primary Care Provider] - Coding Level of Care Code ED Condemnation Engineer for Chg Fwchloé
[2023-10-24] MEDS: morphine 4 mg/mL SDV 1 mL 2 MG IM (03:24)
[2023-10-24 03:42] VITALS: BP 154/85; PULSE 71; RESP 18; O2SAT 94
== END 2023-10-24 03:43 | disposition home or self-care (01) ==
PROVIDERS: Emergency Provider General Practice; PCP Family Medicine
DX: K40.90 Unilateral inguinal hernia, without obstruction or gangrene, not specified as recurrent (principal); K42.9 Umbilical hernia without obstruction or gangrene; I13.2 Hypertensive heart and chronic kidney disease with heart failure and with stage 5 chronic kidney disease, or end stage renal disease; N18.6 End stage renal disease; I50.9 Heart failure, unspecified; Z99.2 Dependence on renal dialysis; Z99.81 Dependence on supplemental oxygen; I25.10 Atherosclerotic heart disease of native coronary artery without angina pectoris; Z95.5 Presence of coronary angioplasty implant and graft; J44.9 Chronic obstructive pulmonary disease, unspecified; Z79.82 Long term (current) use of aspirin; F17.210 Nicotine dependence, cigarettes, uncomplicated
CPT/HCPCS: 96372; 99284; J2270

== ENCOUNTER → 2023-11-04 06:00 | Day surgery (SDC) | payer MEDICARE, MEDICAID, SELFPAY ==
--- NOTE | 2023-11-04 13:31 | US_ITS ---
WS: [id number] ULTRASOUND-GUIDED PARACENTESIS CLINICAL INFORMATION: ascites COMPARISON: None. Procedure Informed consent: The risks, benefits, and alternatives of the procedure were discussed with the mariah ent. Verbal and written consent was obtained. Timeout: A timeout was performed to confirm the correct patient, procedure, and site. Preparation: A suitable skin site was identified. The patient was prepped and draped in usual sterile fashion. Lidocaine 1% was used for local anesthesia. Catheter: 4 [place] Zealander One-step Yueh catheter. Side: LEFT lower quadrant. Fluid Volume: 6800 ml Color: Clear yellow DISPOSITION: Discarded safely. Complications: None. Patient disposition: Discharged from the department in stable condition. US/US paracentesis abd w [id number] IMPRESSION: Uncomplicated ultrasound-guided paracentesis. Removal of 6800 cc
[2023-11-04 13:36] VITALS: BP 156/78; PULSE 71; RESP 16; TEMP 36.9; O2SAT 93; BMI 25.7
[2023-11-04 14:22] LABS: Cyto Order Verification Order Verified
[2023-11-04] MEDS: albumin 50 G/200 ML BAG 60 G IV (14:41)
[2023-11-04 14:52] LABS: Total Protein Body Fluid 4.2 g/dL
== END ==
LOC: GILAB 01-20 08:03
PROVIDERS: Radiology Neuroradiology; PCP Family Medicine; Visit Provider Internal Medicine
PROC: (CPT 49082; principal; 2023-11-04 13:30)
DX: R18.8 Other ascites (principal)
CPT/HCPCS: 49083; 84157; 87075; 88112; 88305; 96365; P9046

== ENCOUNTER 2023-11-06 02:39 | Emergency (ER) | payer MEDICARE, MEDICAID, SELFPAY ==
[2023-11-06 02:48] VITALS: BP 147/70; PULSE 81; RESP 24; TEMP 36.6; O2SAT 92; BMI 25.7
[2023-11-06 03:21] LABS: Basophils # 0.1 10^3/uL (0.0-0.1); Basophils % 1.3 %; Eosinophils # 0.3 10^3/uL (0.0-0.8); Eosinophils % 7.1 %; Hematocrit 32.4 % (37-53); Lymphocytes # 0.6 10^3/uL (0.8-4.8); Lymphocytes % 12.1 %; Mean Corpuscular HGB Conc 32.1 g/dL (30-55); Mean Corpuscular Volume 84.2 fl (82-101); Mean Platelet Volume 9.7 fL (7.4-10.4); Monocytes # 0.5 10^3/uL (0.2-0.9); Monocytes % 10.1 %; Neutrophils # 3.21 10^3/uL (1.8-7.7); Neutrophils % 69.2 %; Nucleated Red Blood Cells % 0 %; Platelet Count 220 10^3/cmm (157-399); Red Blood Count 3.85 10^6/uL (3.85-5.65); Red Cell Distribution Width 19.2 % (12.1-15.1); White Blood Count 4.64 10^3/uL (3.29-11.43)
[2023-11-06 03:37] LABS: Alanine Aminotransferase 6 U/L (0-41); Albumin Level 3.4 g/dL (3.5-5.2); Alkaline Phosphatase 139 U/L (40-130); Anion Gap 14.5 (5-19); Aspartate Amino Transferase 13 U/L (0-40); Blood Urea Nitrogen 14 mg/dL (6-20); Calcium 9.5 mg/dL (8.5-10.5); Carbon Dioxide 29 mmol/L (22-29); Chloride 90 mmol/L (98-107); Creatinine Clr Calc Pharmacy 31.8238; Globulin 3.8 g/dL (1.3-4.6); Glomerular Filtration Rate 18.8 mL/min (90-130); Glucose 109 mg/dL (65-115); Lipase 29 U/L (13-60); Magnesium 1.8 mg/dL (1.7-2.3); Osmolality Calculated 271 mOsm/kg (285-295); Phosphorus 3.9 mg/dL (2.5-4.5); Potassium 3.5 mmol/L (3.5-5.1); Sodium 130 mmol/L (136-145); Total Bilirubin 0.3 mg/dL (0.15-1.2); Total Protein 7.2 g/dL (6.6-8.7)
[2023-11-06] MEDS: morphine 4 mg/mL SDV 1 mL 2 MG IVP (03:38)
[2023-11-06] MEDS: ondansetron 2 mg/ML SDV 2 mL 4 MG IVP (03:42)
--- NOTE | 2023-11-06 03:46 | W.ED.ABDPA2 ---
HPI - Abdominal Pain General: Chief Complaint: Abdominal Pain Stated Complaint: stomach and groin pain Time Seen by Provider: 11/06/23 02:40 History of Present Illness: Patient presents to the ER complaining of abdominal pain and groin pain. Patient is dialysis patient had dialysis on Thursday and has not missed any days. Patient states his pain is little bit worse than his normal pain. Patient is been evaluated for this multiple times. Patient also complaining of some nausea. Patient appears nontoxic in no acute distress. Review of Systems General: Reports: 10 or more systems reviewed and unremarkable except in HPI and below PFSH ED PFSH: Medical History Acute and chronic respiratory failure with hypoxia Patient under care of multiple providers Hypertensive urgency History of cardiovascular stress test 07/2022 at [facility] perfusion imaging probably normal, no reversible defects, small fixed defect in apical anterior wall, EF 54%, nonischemic response to stress by EKG criteria Depression Epididymitis 06/2022 Pulmonary hypertension Uses bilevel positive airway pressure (BPAP) ventilation at home Umbilical hernia History of home oxygen therapy History of coronary angiogram 11/2021 - patent stent Inguinal hernia Anxiety Chronic respiratory failure on home oxygen and bipap Low back pain Nicotine dependence, cigarettes, with other nicotine-induced disorders Generalized anxiety disorder with panic attacks ESRD on dialysis Atherosclerosis of coronary artery Stent and balloon angioplasty to proximal 1 OM branch Chronic abdominal pain COVID 05/25 Hypertensive emergency recurrent episodes Urethral stricture Abdominal ascites history of intermittent paracentesis, transudative fluid; prior work up has included negative biopsy, ceruloplasmin level normal, low iron, high ferritin, normal TIBC, negative HIV, hepatitis panel negative, JESÚS/SCL 70/double-stranded DNA antibodies negative, Alpha-fetoprotein level unremarkable, nonalcoholic by history, has hepatomegaly and splenomegaly Pulmonary embolism 09/21 CTA inconclusive for very tiny peripheral LEFT lower lobe pulmonary artery sub segmental emboli versus poor opacification. Anemia chronic kidney disease Congestive heart failure preserved ejection fraction COPD (chronic obstructive pulmonary disease) Arteriovenous fistula for hemodialysis in place, secondary Degenerative disc disease, lumbar Hypertension uncontrolled Surgical History Stented coronary artery H/O hand surgery Amputation right 2&3 fingers 2017 History of adenoidectomy Family History Other Hypertension Social History Smoking and tobacco/nicotine status: current every day tobacco/nicotine user cigarettes Packs smoked per day: 1.5 Years cigarettes smoked: 21 [ Other cigarette details: started age 20, currently 0.5ppd ] Alcohol intake: never Substance/Drug Use: never Number of children: 3 Current occupational status: disabled Do you think of yourself as: Straight/Heterosexual Physical Exam Const: COMMON NORMALS: no acute distress, average body habitus, patient oriented x3, no limitations, healthy appearing, alert and well nourished HENMT: COMMON NORMALS: normocephalic, atraumatic, hearing grossly normal bilaterally, external ears normal, Normal external nose present and moist oral mucous membranes HEAD & SCALP: normocephalic and atraumatic NOSE: Normal external nose present EXTERNAL EAR: Yes external ears normal Neck/C-Spine: COMMON NORMALS: no JVD Chest: COMMONS NORMALS: normal inspection of the chest and normal palpation of entire chest wall Resp: COMMON NORMALS: normal respiratory effort, No retractions, No use of accessory muscles and clear to auscultation bilaterally AUSCULTATION: clear to auscultation bilaterally Cardio: COMMON NORMALS: no JVD, regular rate, regular rhythm, S1 normal heart sound present, S2 normal heart sound present, No gallops present (Cardio), No clicks present (Cardio), No murmurs present (Cardio) and No rub (Cardio) RATE: regular rate RHYTHM: regular rhythm HEART SOUNDS: S1 normal heart sound present and S2 normal heart sound present GI: COMMON NORMALS: Normal to inspection, nondistended, normoactive bowel sounds present, Soft to palpation, No hepatosplenomegaly present and no masses; negative for non-tender (Mildly diffusely tender,) PALPATION: Yes Soft to palpation and Yes No hepatosplenomegaly present Neuro: COMMON NORMALS: patient oriented x3 SENSORIUM/ORIENTATION: Yes alert Course Vital Signs: Vital signs: Vital Signs Temperature 98 F 11/06/23 02:48 Pulse Rate 81 11/06/23 02:48 Respiratory Rate 24 H 11/06/23 02:48 Blood Pressure 147/70 11/06/23 02:48 Pulse Oximetry 92 11/06/23 02:48 MDM - Abdominal Pain Medical Decision Making Lab work was obtained and included CBC CMP lipase all which was benign for the patient. Patient was given 2 mg morphine which helped the pain. Patient be discharged home and should follow-up with his PCP. Differential Diagnosis Likely abdominal pain Medical Records I reviewed the patient's medical records. Lab Data I reviewed the patient's lab results. 11/06/23 03:14 11/06/23 03:14 Labs/Radiology: Laboratory Results WBC 4.64 10^3/uL (3.29-11.43) 11/06/23 03:14 RBC 3.85 10^6/uL (3.85-5.65) 11/06/23 03:14 Hgb 10.40 g/dL (11.27-16.99) L 11/06/23 03:14 Hct 32.4 % (37-53) L 11/06/23 03:14 MCV 84.2 fl (82-101) 11/06/23 03:14 MCH 27.0 pg (27-33) 11/06/23 03:14 MCHC 32.1 g/dL (30-55) 11/06/23 03:14 RDW 19.2 % (12.1-15.1) H 11/06/23 03:14 Plt Count 220 10^3/cmm (157-399) 11/06/23 03:14 MPV 9.7 fL (7.4-10.4) 11/06/23 03:14 Neut % (Auto) 69.2 % 11/06/23 03:14 Lymph % (Auto) 12.1 % 11/06/23 03:14 Callahan % (Auto) 10.1 % 11/06/23 03:14 Eos % (Auto) 7.1 % 11/06/23 03:14 Baso % (Auto) 1.3 % 11/06/23 03:14 Neut # (Auto) 3.21 10^3/uL (1.8-7.7) 11/06/23 03:14 Lymph # (Auto) 0.6 10^3/uL (0.8-4.8) L 11/06/23 03:14 Callahan # (Auto) 0.5 10^3/uL (0.2-0.9) 11/06/23 03:14 Eos # (Auto) 0.3 10^3/uL (0.0-0.8) 11/06/23 03:14 Baso # (Auto) 0.1 10^3/uL (0.0-0.1) 11/06/23 03:14 Nucleated RBC % (auto) 0 % 11/06/23 03:14 Nucleated RBCs # 0.0 /100WBC 11/06/23 03:14 Sodium 130 mmol/L (136-145) L 11/06/23 03:14 Potassium 3.5 mmol/L (3.5-5.1) 11/06/23 03:14 Chloride 90 mmol/L (98-107) L 11/06/23 03:14 Carbon Dioxide 29 mmol/L (22-29) 11/06/23 03:14 Anion Gap 14.5 (5-19) 11/06/23 03:14 BUN 14 mg/dL (6-20) 11/06/23 03:14 Creatinine 3.6 mg/dL (0.7-1.2) H 11/06/23 03:14 GFR Calculation 18.8 mL/min (90-130) L 11/06/23 03:14 Glucose 109 mg/dL (65-115) 11/06/23 03:14 Calculated Osmolality 271 mOsm/kg (285-295) L 11/06/23 03:14 Calcium 9.5 mg/dL (8.5-10.5) 11/06/23 03:14 Phosphorus 3.9 mg/dL (2.5-4.5) 11/06/23 03:14 Magnesium 1.8 mg/dL (1.7-2.3) 11/06/23 03:14 Total Bilirubin 0.3 mg/dL (0.15-1.2) 11/06/23 03:14 AST 13 U/L (0-40) 11/06/23 03:14 ALT 6 U/L (0-41) 11/06/23 03:14 Alkaline Phosphatase 139 U/L (40-130) H 11/06/23 03:14 Total Protein 7.2 g/dL (6.6-8.7) 11/06/23 03:14 Albumin 3.4 g/dL (3.5-5.2) L 11/06/23 03:14 Globulin 3.8 g/dL (1.3-4.6) 11/06/23 03:14 Lipase 29 U/L (13-60) 11/06/23 03:14 No radiology studies performed this visit Discharge Plan Discharge Patient Disposition: Home Clinical Impression: Abdominal pain Condition: Stable Prescriptions: No Action (DME) DME - BIPAP See Rx Instructions .Route .MEDSUPPLY Qty: 1 0RF Rx Instructions: Inspiratory Pressure: 16mmHg Expiratory Pressure: 8 mmHg Will need oxygen bled in to the machine to maintain sats >/= 90%. (DME) DME - Oxygen See Rx Instructions .Route .MEDSUPPLY Qty: 1 0RF Rx Instructions: Supplemental Oxygen bled into BIPAP at 2-3L to maintain oxygen sats at >/= 90%. Auryxia 210 mg iron Tablet See Rx Instructions .ROUTE .COMPLEX Rx Instructions: 420 mg (2 tabs) orally three times a day and 210mg (1 tab) with snacks aspirin 81 mg tablet,delayed release (DR/EC) 81 mg PO QAM Patient Comments: pt takes qhs on wednesdays pantoprazole 40 mg tablet,delayed release (DR/EC) 40 mg PO BEDTIME isosorbide mononitrate 120 mg tablet extended release 24 hr 240 mg PO QAM RenaPlex-D 800 mcg-12.5 mg -2,000 unit tablet 1 tab PO QAM carvedilol 25 mg tablet 37.5 mg PO Q12H atorvastatin 40 mg tablet 40 mg PO BEDTIME amlodipine 10 mg tablet 10 mg PO QAM hydralazine 100 mg tablet 100 mg PO Q8H prasugrel 10 mg tablet 10 mg PO QAM cyclobenzaprine 10 mg tablet 10 mg PO BID PRN (Reason: Muscle Spasm) albuterol sulfate 90 mcg/actuation Hfa Aerosol Inhaler 2 puff INHALATION QID PRN (Reason: Shortness Of Breath) ondansetron 4 mg tablet,disintegrating 4 mg PO Q8H PRN (Reason: nausea and vomiting) Qty: 10 0RF Discharge Orders: Discharge ED (Routine); Ordered 11/06/23 Ordered By: Colton Child Referrals: Delio Salazar MD [Primary Care Provider] - 1 week Patient Instructions: Abdominal Pain (ED) Activity Restrictions/Additional Instructions: Your lab work is stable and unremarkable. You are given pain medicine your IV. Please follow-up with your family practice physician for further evaluation and pain control. Coding Level of Care Code ED Customer Experience Strategist for Cristi Diane
[2023-11-06 04:10] VITALS: BP 147/70; PULSE 81; RESP 24; TEMP 36.6; O2SAT 92
== END 2023-11-06 04:11 | disposition home or self-care (01) ==
PROVIDERS: Emergency Provider Emergency Medicine; PCP Family Medicine
DX: R10.9 Unspecified abdominal pain (principal); I11.0 Hypertensive heart disease with heart failure; I50.9 Heart failure, unspecified; N18.6 End stage renal disease; J44.9 Chronic obstructive pulmonary disease, unspecified; I25.10 Atherosclerotic heart disease of native coronary artery without angina pectoris; Z86.16 Personal history of COVID-19; Z86.711 Personal history of pulmonary embolism; Z95.5 Presence of coronary angioplasty implant and graft; Z99.2 Dependence on renal dialysis
CPT/HCPCS: 80053; 83690; 83735; 84100; 85025; 96374; 96375; 99284; J2270; J2405

== ENCOUNTER 2023-11-11 00:46 | Emergency (ER) | payer MEDICARE, MEDICAID, SELFPAY ==
[2023-11-11 00:53] VITALS: BP 119/67; PULSE 77; RESP 18; TEMP 36.6; O2SAT 94; BMI 27.0
--- NOTE | 2023-11-11 01:00 | W.ED.ABDPA2 ---
HPI - Abdominal Pain General: Chief Complaint: Abdominal Pain Stated Complaint: Groin abd pain Time Seen by Provider: 11/11/23 00:48 History of Present Illness: 43-year-old man with a history of end-stage renal disease on dialysis and a chronic hernia and chronic abdominal pain who presents the emergency room with worsening abdominal pain. He had a workup for this just about 3 to 4 days ago[address] Had stable CT scan at that time. He says his pain is not different than and just worse and intolerable. He is not on any pain medications at this point but is supposed to have follow-up with pain clinic in the next few days. I discussed whether or not he needed another workup for the pain and we agreed that he did not since the pain is not different. He wants just some pain control Review of Systems Narrative: Constitutional symptoms: Negative except as documented in HPI. Skin symptoms: Negative except as documented in HPI. Eye symptoms: Negative except as documented in HPI. ENMT symptoms: Negative except as documented in HPI. Respiratory symptoms: Negative except as documented in HPI. Cardiovascular symptoms: Negative except as documented in HPI. Gastrointestinal symptoms: Negative except as documented in HPI. Genitourinary symptoms: Negative except as documented in HPI. Musculoskeletal symptoms: Negative except as documented in HPI. Neurologic symptoms: Negative except as documented in HPI. Psychiatric symptoms: Negative except as documented in HPI. Endocrine symptoms: Negative except as documented in HPI. [facility] ED PFSH: Medical History Acute and chronic respiratory failure with hypoxia Patient under care of multiple providers Hypertensive urgency History of cardiovascular stress test 07/2022 at [facility] perfusion imaging probably normal, no reversible defects, small fixed defect in apical anterior wall, EF 54%, nonischemic response to stress by EKG criteria Depression Epididymitis 06/2022 Pulmonary hypertension Uses bilevel positive airway pressure (BPAP) ventilation at home Umbilical hernia History of home oxygen therapy History of coronary angiogram 11/2021 - patent stent Inguinal hernia Anxiety Chronic respiratory failure on home oxygen and bipap Low back pain Nicotine dependence, cigarettes, with other nicotine-induced disorders Generalized anxiety disorder with panic attacks ESRD on dialysis Atherosclerosis of coronary artery Stent and balloon angioplasty to proximal 1 OM branch Chronic abdominal pain COVID 05/25 Hypertensive emergency recurrent episodes Urethral stricture Abdominal ascites history of intermittent paracentesis, transudative fluid; prior work up has included negative biopsy, ceruloplasmin level normal, low iron, high ferritin, normal TIBC, negative HIV, hepatitis panel negative, JESÚS/SCL 70/double-stranded DNA antibodies negative, Alpha-fetoprotein level unremarkable, nonalcoholic by history, has hepatomegaly and splenomegaly Pulmonary embolism 09/21 CTA inconclusive for very tiny peripheral LEFT lower lobe pulmonary artery sub segmental emboli versus poor opacification. Anemia chronic kidney disease Congestive heart failure preserved ejection fraction COPD (chronic obstructive pulmonary disease) Arteriovenous fistula for hemodialysis in place, secondary Degenerative disc disease, lumbar Hypertension uncontrolled Surgical History Stented coronary artery H/O hand surgery Amputation right 2&3 fingers 2017 History of adenoidectomy Family History Other Hypertension Social History Smoking and tobacco/nicotine status: current every day tobacco/nicotine user cigarettes Packs smoked per day: 1.5 Years cigarettes smoked: 21 [ Other cigarette details: started age 20, currently 0.5ppd ] Alcohol intake: never Substance/Drug Use: never Number of children: 3 Current occupational status: disabled Do you think of yourself as: Straight/Heterosexual Physical Exam Narrative: EXAM NARRATIVE: General: Alert, no acute distress. Skin: Warm, dry. Head: Normocephalic, atraumatic. Neck: Supple, trachea midline. Eye: Extraocular movements are intact. Ears, nose, mouth and throat: mucosa moist. Cardiovascular: Regular, Normal peripheral perfusion. Respiratory: Lungs are clear to auscultation, respirations are non-labored, breath sounds are equal, Symmetrical chest wall expansion. Gastrointestinal: Soft, patient has some pain in his groin, Non distended Musculoskeletal: Normal ROM, no deformity. Neurological: Alert and oriented, No focal neurological deficit observed. Psychiatric: Cooperative, appropriate mood & affect. Course Vital Signs: Vital signs: Vital Signs Temperature 97.9 F 11/11/23 00:53 Pulse Rate 77 11/11/23 00:53 Respiratory Rate 18 11/11/23 00:53 Blood Pressure 119/67 11/11/23 00:53 Pulse Oximetry 94 11/11/23 00:53 Oxygen Delivery Me thod Room Air 11/11/23 00:53 MDM - Abdominal Pain Medical Decision Making Assessment and plan: Chronic abdominal pain. -[place] for here and for home - Discharged home - Discussed plan with patient. Answered any questions. - Evaluation and treatment of this problem were appropriate in the emergency setting. No radiology studies performed this visit Discharge Plan Discharge Patient Disposition: Home Clinical Impression: Abdominal pain Condition: Stable Prescriptions: New hydrocodone-acetaminophen 5-325 mg tablet 1 tab PO Q6H PRN (Reason: pain) Qty: 20 0RF polyethylene glycol 3350 [Miralax] 17 gram/dose powder 17 g PO DAILY Qty: 510 0RF Rx Instructions: Take 1 scoop daily while taking pain medications. No Action (DME) DME - BIPAP See Rx Instructions .Route .MEDSUPPLY Qty: 1 0RF Rx Instructions: Inspiratory Pressure: 16mmHg Expiratory Pressure: 8 mmHg Will need oxygen bled in to the machine to maintain sats >/= 90%. (DME) DME - Oxygen See Rx Instructions .Route .MEDSUPPLY Qty: 1 0RF Rx Instructions: Supplemental Oxygen bled into BIPAP at 2-3L to maintain oxygen sats at >/= 90%. Auryxia 210 mg iron Tablet See Rx Instructions .ROUTE .COMPLEX Rx Instructions: 420 mg (2 tabs) orally three times a day and 210mg (1 tab) with snacks aspirin 81 mg tablet,delayed release (DR/EC) 81 mg PO QAM Patient Comments: pt takes qhs on wednesdays pantoprazole 40 mg tablet,delayed release (DR/EC) 40 mg PO BEDTIME isosorbide mononitrate 120 mg tablet extended release 24 hr 240 mg PO QAM RenaPlex-D 800 mcg-12.5 mg -2,000 unit tablet 1 tab PO QAM carvedilol 25 mg tablet 37.5 mg PO Q12H atorvastatin 40 mg tablet 40 mg PO BEDTIME amlodipine 10 mg tablet 10 mg PO QAM hydralazine 100 mg tablet 100 mg PO Q8H prasugrel 10 mg tablet 10 mg PO QAM cyclobenzaprine 10 mg tablet 10 mg PO BID PRN (Reason: Muscle Spasm) albuterol sulfate 90 mcg/actuation Hfa Aerosol Inhaler 2 puff INHALATION QID PRN (Reason: Shortness Of Breath) ondansetron 4 mg tablet,disintegrating 4 mg PO Q8H PRN (Reason: nausea and vomiting) Qty: 10 0RF Discharge Orders: Discharge ED (Routine); Ordered 11/11/23 Ordered By: Naomi Persaud Referrals: Delio Salazar MD [Primary Care Provider] - Discharge Diet: Usual diet Discharge Activity: Increase activity as tolerated Patient Instructions: Abdominal Pain (ED), Opioid Safety, Pain Management Activity Restrictions/Additional Instructions: Thank you for choosing [facility] for your healthcare needs today. Please realize this is an emergency room and that we are providing you with a medical screening exam and this may not be complete and all inclusive of all the testing and or work up that you may need to determine your ailment or severity of your illness. You have been screened and evaluated and felt safe for discharge. Health conditions do change or evolve sometimes and as such it is important that you follow up with your Primary Doctor to be re checked, 3-5 days is a general good time frame for follow up. 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
[2023-11-11 01:07] VITALS: BP 119/67; PULSE 74; RESP 18; TEMP 36.4; O2SAT 94
[2023-11-11] MEDS: HYDROcodone-acetaminophen 10-325 mg Tablet 2 TAB PO (01:09)
[2023-11-11 01:11] VITALS: BP 119/67; PULSE 74; RESP 18; TEMP 36.4; O2SAT 94
== END 2023-11-11 01:13 | disposition home or self-care (01) ==
PROVIDERS: Emergency Provider Emergency Medicine; PCP Family Medicine
DX: R10.30 Lower abdominal pain, unspecified (principal); G89.29 Other chronic pain; I12.0 Hypertensive chronic kidney disease with stage 5 chronic kidney disease or end stage renal disease; N18.6 End stage renal disease; Z99.2 Dependence on renal dialysis; F17.210 Nicotine dependence, cigarettes, uncomplicated
CPT/HCPCS: 99281

== ENCOUNTER 2023-11-17 23:46 | Emergency (ER) | payer MEDICARE, MEDICAID, SELFPAY ==
[2023-11-17 23:51] VITALS: BP 130/67; PULSE 81; RESP 18; TEMP 37.1; O2SAT 95
[2023-11-18 00:06] VITALS: BP 148/73; PULSE 82; RESP 16; TEMP 36.4; O2SAT 95
[2023-11-18 00:09] VITALS: RESP 16
[2023-11-18] MEDS: morphine 4 mg/mL SDV 1 mL IM (00:09)
--- NOTE | 2023-11-18 00:28 | W.ED.ABDPA2 ---
Documented by User: [email or web address] Arzate 11/20/23 09:06 HPI - Abdominal Pain General: Chief Complaint: Abdominal Pain Stated Complaint: stomach and groin pain Time Seen by Provider: 11/17/23 23:57 Source: patient Mode of arrival: ambulatory Limitations: no limitations History of Present Illness: Patient is a 43-year-old man with a history of end-stage renal disease on dialysis and a chronic hernia and chronic abdominal pain who presents the emergency room with worsening abdominal pain. Patient has multiple ED visits for the same complaint, has not been taking anything for pain. Was seen last 1 week ago with normal workup, was sent home with pain medications. There are no new symptoms to report, he is stating that the pain is worse with any ambulation. He has a very large right inguinal hernia, which is the primary site for his pain. States that it is so large that it is pulling down on his lower abdomen which is causing some periumbilical pain. He has an extensive past medical history, is currently a Thursday, , Thursday dialysis recipient. States he has been going to these is regular. No other symptoms reported this time. MD elicited complaint: abdominal pain Location: RLQ, LLQ and Groin Associated Symptoms: Denies bloating, change in stool character, chills, constipation, diarrhea, dysuria, fever(s), hematochezia, nausea and vomiting Review of Systems General: Reports: 10 or more systems reviewed and unremarkable except in HPI and below Const: Denies: fever(s), chills, change in appetite, change in weight or diaphoresis ENMT: Denies: throat pain or hoarseness Card: Denies: chest pain, palpitations or lightheadedness Resp: Denies: dyspnea, productive cough or wheezing GI: Reports: abdominal pain; Denies: nausea, vomiting, diarrhea, constipation, bloating, change in stool character or hematochezia : Reports: genital pain and scrotal swelling; Denies: flank pain, difficulty urinating, dysuria, urinary frequency or urinary urgency Musc: Denies: neck pain or back pain Skin/Breast: Denies: rash or new lesions Neuro: Denies: headache(s) or dizziness PFS ED PFSH: Medical History Acute and chronic respiratory failure with hypoxia Patient under care of multiple providers Hypertensive urgency History of cardiovascular stress test 07/2022 at [facility] perfusion imaging probably normal, no reversible defects, small fixed defect in apical anterior wall, EF 54%, nonischemic response to stress by EKG criteria Depression Epididymitis 06/2022 Pulmonary hypertension Uses bilevel positive airway pressure (BPAP) ventilation at home Umbilical hernia History of home oxygen therapy History of coronary angiogram 11/2021 - patent stent Inguinal hernia Anxiety Chronic respiratory failure on home oxygen and bipap Low back pain Nicotine dependence, cigarettes, with other nicotine-induced disorders Generalized anxiety disorder with panic attacks ESRD on dialysis Atherosclerosis of coronary artery Stent and balloon angioplasty to proximal 1 OM branch Chronic abdominal pain COVID 05/25 Hypertensive emergency recurrent episodes Urethral stricture Abdominal ascites history of intermittent paracentesis, transudative fluid; prior work up has included negative biopsy, ceruloplasmin level normal, low iron, high ferritin, normal TIBC, negative HIV, hepatitis panel negative, JESÚS/SCL 70/double-stranded DNA antibodies negative, Alpha-fetoprotein level unremarkable, nonalcoholic by history, has hepatomegaly and splenomegaly Pulmonary embolism 09/21 CTA inconclusive for very tiny peripheral LEFT lower lobe pulmonary artery sub segmental emboli versus poor opacification. Anemia chronic kidney disease Congestive heart failure preserved ejection fraction COPD (chronic obstructive pulmonary disease) Arteriovenous fistula for hemodialysis in place, secondary Degenerative disc disease, lumbar Hypertension uncontrolled Surgical History Stented coronary artery H/O hand surgery Amputation right 2&3 fingers 2017 History of adenoidectomy Family History Other Hypertension Social History Smoking and tobacco/nicotine status: current every day tobacco/nicotine user cigarettes Packs smoked per day: 1.5 Years cigarettes smoked: 21 [ Other cigarette details: started age 20, currently 0.5ppd ] Alcohol intake: never Substance/Drug Use: never Number of children: 3 Current occupational status: disabled Do you think of yourself as: Straight/Heterosexual Physical Exam Const: COMMON NORMALS: no acute distress, patient oriented x3, no limitations and alert GENERAL APPEARANCE: appears older than stated age HENMT: COMMON NORMALS: normocephalic, atraumatic and moist oral mucous membranes HEAD & SCALP: normocephalic and atraumatic Eye: COMMON NORMALS: EOMs intact bilaterally and conjunctivae normal CONJUNCTIVA: Yes conjunctivae normal Neck/C-Spine: COMMON NORMALS: full ROM and no meningeal signs Resp: COMMON NORMALS: normal respiratory effort, No use of accessory muscles and clear to auscultation bilaterally AUSCULTATION: clear to auscultation bilaterally Cardio: COMMON NORMALS: regular rate and regular rhythm RATE: regular rate RHYTHM: regular rhythm GI: INSPECTION: Yes abdominal distension PALPATION: Yes Firmness to palpation present (GI), Yes Tenderness to palpation present (GI) (Diffuse tenderness to palpation, lower quadrants worse) and No Guarding due to palpation present (GI) : OTHER: Very large right inguinal hernia, tender to palpation Extremity: COMMON NORMALS: normal to inspection and full ROM Neuro: COMMON NORMALS: patient oriented x3, moves all extremities, no focal motor deficits and no sensory deficits noted SENSORIUM/ORIENTATION: Yes alert MENINGEAL SIGNS: Yes no meningeal signs Skin: COMMON NORMALS: no rashes or lesions noted GENERAL SKIN EXAM: no rashes or lesions noted Course Vital Signs: Vital signs: Vital Signs Temperature 97.6 F 11/18/23 01:50 Pulse Rate 82 11/18/23 00:06 Respiratory Rate 16 11/18/23 01:50 Blood Pressure 148/73 11/18/23 01:50 Pulse Oximetry 91 11/18/23 01:50 Oxygen Delivery Me thod Room Air 11/18/23 00:06 MDM - Abdominal Pain Lab Data 11/18/23 00:47 11/18/23 00:47 Labs/Radiology: Laboratory Results WBC 4.91 10^3/uL (3.29-11.43) 11/18/23 00:47 RBC 4.09 10^6/uL (3.85-5.65) 11/18/23 00:47 Hgb 11.10 g/dL (11.27-16.99) L 11/18/23 00:47 Hct 34.6 % (37-53) L 11/18/23 00:47 MCV 84.6 fl (82-101) 11/18/23 00:47 MCH 27.1 pg (27-33) 11/18/23 00:47 MCHC 32.1 g/dL (30-55) 11/18/23 00:47 RDW 20.0 % (12.1-15.1) H 11/18/23 00:47 Plt Count 218 10^3/cmm (157-399) 11/18/23 00:47 MPV 9.2 fL (7.4-10.4) 11/18/23 00:47 Neut % (Auto) 77.3 % 11/18/23 00:47 Lymph % (Auto) 8.1 % 11/18/23 00:47 [place] % (Auto) 7.3 % 11/18/23 00:47 Eos % (Auto) 5.5 % 11/18/23 00:47 Baso % (Auto) 1.6 % 11/18/23 00:47 Neut # (Auto) 3.79 10^3/uL (1.8-7.7) 11/18/23 00:47 Lymph # (Auto) 0.4 10^3/uL (0.8-4.8) L 11/18/23 00:47 [place] # (Auto) 0.4 10^3/uL (0.2-0.9) 11/18/23 00:47 Eos # (Auto) 0.3 10^3/uL (0.0-0.8) 11/18/23 00:47 Baso # (Auto) 0.1 10^3/uL (0.0-0.1) 11/18/23 00:47 Nucleated RBC % (auto) 0 % 11/18/23 00:47 Nucleated RBCs # 0.0 /100WBC 11/18/23 00:47 Sodium 137 mmol/L (136-145) 11/18/23 00:47 Potassium 4.2 mmol/L (3.5-5.1) 11/18/23 00:47 Chloride 95 mmol/L (98-107) L 11/18/23 00:47 Carbon Dioxide 27 mmol/L (22-29) 11/18/23 00:47 Anion Gap 19.2 (5-19) H 11/18/23 00:47 BUN 21 mg/dL (6-20) H 11/18/23 00:47 Creatinine 5.1 mg/dL (0.7-1.2) H 11/18/23 00:47 GFR Calculation 12.6 mL/min (90-130) L 11/18/23 00:47 Glucose 104 mg/dL (65-115) 11/18/23 00:47 Calculated Osmolality 287 mOsm/kg (285-295) 11/18/23 00:47 Calcium 10.1 mg/dL (8.5-10.5) 11/18/23 00:47 Phosphorus 4.9 mg/dL (2.5-4.5) H 11/18/23 00:47 Magnesium 2.0 mg/dL (1.7-2.3) 11/18/23 00:47 Total Bilirubin 0.4 mg/dL (0.15-1.2) 11/18/23 00:47 AST 15 U/L (0-40) 11/18/23 00:47 ALT 8 U/L (0-41) 11/18/23 00:47 Alkaline Phosphatase 138 U/L (40-130) H 11/18/23 00:47 Total Protein 7.3 g/dL (6.6-8.7) 11/18/23 00:47 Albumin 3.5 g/dL (3.5-5.2) 11/18/23 00:47 Globulin 3.8 g/dL (1.3-4.6) 11/18/23 00:47 Lipase 23 U/L (13-60) 11/18/23 00:47 All radiology interpretation(s) finalized by discharge Discharge Plan Discharge Patient Disposition: Home Clinical Impression: Chronic abdominal pain Condition: Stable Prescriptions: No Action (DME) DME - BIPAP See Rx Instructions .Route .MEDSUPPLY Qty: 1 0RF Rx Instructions: Inspiratory Pressure: 16mmHg Expiratory Pressure: 8 mmHg Will need oxygen bled in to the machine to maintain sats >/= 90%. (DME) DME - Oxygen See Rx Instructions .Route .MEDSUPPLY Qty: 1 0RF Rx Instructions: Supplemental Oxygen bled into BIPAP at 2-3L to maintain oxygen sats at >/= 90%. Auryxia 210 mg iron Tablet See Rx Instructions .ROUTE .COMPLEX Rx Instructions: 420 mg (2 tabs) orally three times a day and 210mg (1 tab) with snacks aspirin 81 mg tablet,delayed release (DR/EC) 81 mg PO QAM Patient Comments: pt takes qhs on wednesdays pantoprazole 40 mg tablet,delayed release (DR/EC) 40 mg PO BEDTIME isosorbide mononitrate 120 mg tablet extended release 24 hr 240 mg PO QAM RenaPlex-D 800 mcg-12.5 mg -2,000 unit tablet 1 tab PO QAM carvedilol 25 mg tablet 37.5 mg PO Q12H atorvastatin 40 mg tablet 40 mg PO BEDTIME amlodipine 10 mg tablet 10 mg PO QAM hydralazine 100 mg tablet 100 mg PO Q8H prasugrel 10 mg tablet 10 mg PO QAM cyclobenzaprine 10 mg tablet 10 mg PO BID PRN (Reason: Muscle Spasm) albuterol sulfate 90 mcg/actuation Hfa Aerosol Inhaler 2 puff INHALATION QID PRN (Reason: Shortness Of Breath) ondansetron 4 mg tablet,disintegrating 4 mg PO Q8H PRN (Reason: nausea and vomiting) Qty: 10 0RF hydrocodone-acetaminophen 5-325 mg tablet 1 tab PO Q6H PRN (Reason: pain) Qty: 20 0RF Miralax 17 gram/dose powder 17 g PO DAILY Qty: 510 0RF Rx Instructions: Take 1 scoop daily while taking pain medications. Discharge Orders: Discharge ED (Routine); Ordered 11/18/23 Ordered By: Colton Child Referrals: Delio Salazar MD [Primary Care Provider] - 1 week Patient Instructions: Abdominal Pain (ED) Activity Restrictions/Additional Instructions: Please follow-up with your family practice physician for your chronic abdominal pain and hernia. Coding Level of Care Code ED Home Health Clinical Supervisor for Chg Fwd Documented by User: Colton Child DO 11/18/23 01:42 HPI - Abdominal Pain General: Chief Complaint: Abdominal Pain Stated Complaint: stomach and groin pain Time Seen by Provider: 11/17/23 23:57 PFSH ED PFSH: Medical History Acute and chronic respiratory failure with hypoxia Patient under care of multiple providers Hypertensive urgency History of cardiovascular stress test 07/2022 at [facility] perfusion imaging probably normal, no reversible defects, small fixed defect in apical anterior wall, EF 54%, nonischemic response to stress by EKG criteria Depression Epididymitis 06/2022 Pulmonary hypertension Uses bilevel positive airway pressure (BPAP) ventilation at home Umbilical hernia History of home oxygen therapy History of coronary angiogram 11/2021 - patent stent Inguinal hernia Anxiety Chronic respiratory failure on home oxygen and bipap Low back pain Nicotine dependence, cigarettes, with other nicotine-induced disorders Generalized anxiety disorder with panic attacks ESRD on dialysis Atherosclerosis of coronary artery Stent and balloon angioplasty to proximal 1 OM branch Chronic abdominal pain COVID 05/25 Hypertensive emergency recurrent episodes Urethral stricture Abdominal ascites history of intermittent paracentesis, transudative fluid; prior work up has included negative biopsy, ceruloplasmin level normal, low iron, high ferritin, normal TIBC, negative HIV, hepatitis panel negative, JESÚS/SCL 70/double-stranded DNA antibodies negative, Alpha-fetoprotein level unremarkable, nonalcoholic by history, has hepatomegaly and splenomegaly Pulmonary embolism 09/21 CTA inconclusive for very tiny peripheral LEFT lower lobe pulmonary artery sub segmental emboli versus poor opacification. Anemia chronic kidney disease Congestive heart failure preserved ejection fraction COPD (chronic obstructive pulmonary disease) Arteriovenous fistula for hemodialysis in place, secondary Degenerative disc disease, lumbar Hypertension uncontrolled Surgical History Stented coronary artery H/O hand surgery Amputation right 2&3 fingers 2017 History of adenoidectomy Family History Other Hypertension Social History Smoking and tobacco/nicotine status: current every day tobacco/nicotine user cigarettes Packs smoked per day: 1.5 Years cigarettes smoked: 21 [ Other cigarette details: started age 20, currently 0.5ppd ] Alcohol intake: never Substance/Drug Use: never Number of children: 3 Current occupational status: disabled Do you think of yourself as: Straight/Heterosexual Course Vital Signs: Vital signs: Vital Signs Temperature 97.6 F 11/18/23 01:50 Pulse Rate 82 11/18/23 00:06 Respiratory Rate 16 11/18/23 01:50 Blood Pressure 148/73 11/18/23 01:50 Pulse Oximetry 91 11/18/23 01:50 Oxygen Delivery Me thod Room Air 11/18/23 00:06 MDM - Abdominal Pain Medical Decision Making Patient transferred over to care shift change, reviewed lab work, patient was given 4 mg Zofran patient be discharged home. Lab Data 11/18/23 00:47 11/18/23 00:47 Labs/Radiology: Laboratory Results WBC 4.91 10^3/uL (3.29-11.43) 11/18/23 00:47 RBC 4.09 10^6/uL (3.85-5.65) 11/18/23 00:47 Hgb 11.10 g/dL (11.27-16.99) L 11/18/23 00:47 Hct 34.6 % (37-53) L 11/18/23 00:47 MCV 84.6 fl (82-101) 11/18/23 00:47 MCH 27.1 pg (27-33) 11/18/23 00:47 MCHC 32.1 g/dL (30-55) 11/18/23 00:47 RDW 20.0 % (12.1-15.1) H 11/18/23 00:47 Plt Count 218 10^3/cmm (157-399) 11/18/23 00:47 MPV 9.2 fL (7.4-10.4) 11/18/23 00:47 Neut % (Auto) 77.3 % 11/18/23 00:47 Lymph % (Auto) 8.1 % 11/18/23 00:47 [place] % (Auto) 7.3 % 11/18/23 00:47 Eos % (Auto) 5.5 % 11/18/23 00:47 Baso % (Auto) 1.6 % 11/18/23 00:47 Neut # (Auto) 3.79 10^3/uL (1.8-7.7) 11/18/23 00:47 Lymph # (Auto) 0.4 10^3/uL (0.8-4.8) L 11/18/23 00:47 [place] # (Auto) 0.4 10^3/uL (0.2-0.9) 11/18/23 00:47 Eos # (Auto) 0.3 10^3/uL (0.0-0.8) 11/18/23 00:47 Baso # (Auto) 0.1 10^3/uL (0.0-0.1) 11/18/23 00:47 Nucleated RBC % (auto) 0 % 11/18/23 00:47 Nucleated RBCs # 0.0 /100WBC 11/18/23 00:47 Sodium 137 mmol/L (136-145) 11/18/23 00:47 Potassium 4.2 mmol/L (3.5-5.1) 11/18/23 00:47 Chloride 95 mmol/L (98-107) L 11/18/23 00:47 Carbon Dioxide 27 mmol/L (22-29) 11/18/23 00:47 Anion Gap 19.2 (5-19) H 11/18/23 00:47 BUN 21 mg/dL (6-20) H 11/18/23 00:47 Creatinine 5.1 mg/dL (0.7-1.2) H 11/18/23 00:47 GFR Calculation 12.6 mL/min (90-130) L 11/18/23 00:47 Glucose 104 mg/dL (65-115) 11/18/23 00:47 Calculated Osmolality 287 mOsm/kg (285-295) 11/18/23 00:47 Calcium 10.1 mg/dL (8.5-10.5) 11/18/23 00:47 Phosphorus 4.9 mg/dL (2.5-4.5) H 11/18/23 00:47 Magnesium 2.0 mg/dL (1.7-2.3) 11/18/23 00:47 Total Bilirubin 0.4 mg/dL (0.15-1.2) 11/18/23 00:47 AST 15 U/L (0-40) 11/18/23 00:47 ALT 8 U/L (0-41) 11/18/23 00:47 Alkaline Phosphatase 138 U/L (40-130) H 11/18/23 00:47 Total Protein 7.3 g/dL (6.6-8.7) 11/18/23 00:47 Albumin 3.5 g/dL (3.5-5.2) 11/18/23 00:47 Globulin 3.8 g/dL (1.3-4.6) 11/18/23 00:47 Lipase 23 U/L (13-60) 11/18/23 00:47 Discharge Plan Discharge Patient Disposition: Home Clinical Impression: Chronic abdominal pain Condition: Stable Prescriptions: No Action (DME) DME - BIPAP See Rx Instructions .Route .MEDSUPPLY Qty: 1 0RF Rx Instructions: Inspiratory Pressure: 16mmHg Expiratory Pressure: 8 mmHg Will need oxygen bled in to the machine to maintain sats >/= 90%. (DME) DME - Oxygen See Rx Instructions .Route .MEDSUPPLY Qty: 1 0RF Rx Instructions: Supplemental Oxygen bled into BIPAP at 2-3L to maintain oxygen sats at >/= 90%. Auryxia 210 mg iron Tablet See Rx Instructions .ROUTE .COMPLEX Rx Instructions: 420 mg (2 tabs) orally three times a day and 210mg (1 tab) with snacks aspirin 81 mg tablet,delayed release (DR/EC) 81 mg PO QAM Patient Comments: pt takes qhs on wednesdays pantoprazole 40 mg tablet,delayed release (DR/EC) 40 mg PO BEDTIME isosorbide mononitrate 120 mg tablet extended release 24 hr 240 mg PO QAM RenaPlex-D 800 mcg-12.5 mg -2,000 unit tablet 1 tab PO QAM carvedilol 25 mg tablet 37.5 mg PO Q12H atorvastatin 40 mg tablet 40 mg PO BEDTIME amlodipine 10 mg tablet 10 mg PO QAM hydralazine 100 mg tablet 100 mg PO Q8H prasugrel 10 mg tablet 10 mg PO QAM cyclobenzaprine 10 mg tablet 10 mg PO BID PRN (Reason: Muscle Spasm) albuterol sulfate 90 mcg/actuation Hfa Aerosol Inhaler 2 puff INHALATION QID PRN (Reason: Shortness Of Breath) ondansetron 4 mg tablet,disintegrating 4 mg PO Q8H PRN (Reason: nausea and vomiting) Qty: 10 0RF hydrocodone-acetaminophen 5-325 mg tablet 1 tab PO Q6H PRN (Reason: pain) Qty: 20 0RF Miralax 17 gram/dose powder 17 g PO DAILY Qty: 510 0RF Rx Instructions: Take 1 scoop daily while taking pain medications. Discharge Orders: Discharge ED (Routine); Ordered 11/18/23 Ordered By: Colton Child Referrals: Delio Salazar MD [Primary Care Provider] - 1 week Patient Instructions: Abdominal Pain (ED) Activity Restrictions/Additional Instructions: Please follow-up with your family practice physician for your chronic abdominal pain and hernia. Coding Level of Care Code ED Home Health Clinical Supervisor for Cristi Diane
[2023-11-18 01:00] LABS: Basophils # 0.1 10^3/uL (0.0-0.1); Basophils % 1.6 %; Eosinophils # 0.3 10^3/uL (0.0-0.8); Eosinophils % 5.5 %; Hematocrit 34.6 % (37-53); Lymphocytes # 0.4 10^3/uL (0.8-4.8); Lymphocytes % 8.1 %; Mean Corpuscular HGB Conc 32.1 g/dL (30-55); Mean Corpuscular Hemoglobin 27.1 pg (27-33); Mean Corpuscular Volume 84.6 fl (82-101); Mean Platelet Volume 9.2 fL (7.4-10.4); Monocytes # 0.4 10^3/uL (0.2-0.9); Monocytes % 7.3 %; Neutrophils # 3.79 10^3/uL (1.8-7.7); Neutrophils % 77.3 %; Nucleated Red Blood Cells % 0 %; Platelet Count 218 10^3/cmm (157-399); Red Blood Count 4.09 10^6/uL (3.85-5.65); White Blood Count 4.91 10^3/uL (3.29-11.43)
[2023-11-18 01:09] LABS: Alanine Aminotransferase 8 U/L (0-41); Albumin Level 3.5 g/dL (3.5-5.2); Alkaline Phosphatase 138 U/L (40-130); Anion Gap 19.2 (5-19); Aspartate Amino Transferase 15 U/L (0-40); Blood Urea Nitrogen 21 mg/dL (6-20); Calcium 10.1 mg/dL (8.5-10.5); Carbon Dioxide 27 mmol/L (22-29); Chloride 95 mmol/L (98-107); Creatinine Clr Calc Pharmacy 22.4638; Globulin 3.8 g/dL (1.3-4.6); Glomerular Filtration Rate 12.6 mL/min (90-130); Glucose 104 mg/dL (65-115); Lipase 23 U/L (13-60); Osmolality Calculated 287 mOsm/kg (285-295); Phosphorus 4.9 mg/dL (2.5-4.5); Potassium 4.2 mmol/L (3.5-5.1); Sodium 137 mmol/L (136-145); Total Bilirubin 0.4 mg/dL (0.15-1.2); Total Protein 7.3 g/dL (6.6-8.7)
[2023-11-18 01:50] VITALS: BP 148/73; RESP 16; TEMP 36.4; O2SAT 91
== END 2023-11-18 01:52 | disposition home or self-care (01) ==
PROVIDERS: Emergency Provider Physician Assistant; PCP Family Medicine
DX: R10.33 Periumbilical pain (principal); I25.10 Atherosclerotic heart disease of native coronary artery without angina pectoris; J44.9 Chronic obstructive pulmonary disease, unspecified; Z79.82 Long term (current) use of aspirin; F17.210 Nicotine dependence, cigarettes, uncomplicated; Z86.16 Personal history of COVID-19; Z86.711 Personal history of pulmonary embolism; Z95.5 Presence of coronary angioplasty implant and graft
CPT/HCPCS: 36415; 80053; 83690; 83735; 84100; 85025; 96372; 99284; J2270

== ENCOUNTER 2023-11-18 12:39 | Day surgery (SDC) | payer MEDICARE, MEDICAID, SELFPAY ==
--- NOTE | 2023-11-18 12:42 | US_ITS ---
WS: [id number] ULTRASOUND-GUIDED THERAPEUTIC AND DIAGNOSTIC PARACENTESIS Procedure, risks, and complications have been explained to the patient. Consent is obtained. Utilizing aseptic technique and 1% buffered lidocaine, a small dermatome was made through which a 5 F rench Yueh catheter was inserted. Approximately 5600 ml of light red peritoneal fluid was obtained wi thout difficulty. No complications encountered. Specimen collected for analysis. US/US paracentesis [id number] [id number] IMPRESSION: Uncomplicated paracentesis yielding 5600 ml of peritoneal fluid.
[2023-11-18 12:45] VITALS: BP 146/81; PULSE 75; RESP 20; TEMP 36.6; O2SAT 94
[2023-11-18 12:46] VITALS: BMI 25.8
[2023-11-18] MEDS: albumin 50 G/200 ML BAG 60 G IV (14:07)
[2023-11-18 15:37] LABS: Albumin Peritoneal Fluid 2.3 g/dL; Total Protein Peritoneal Fluid 4.1 g/dL
[2023-11-18 15:38] LABS: Cyto Order Verification No Order
== END 2023-11-18 14:35 | disposition home or self-care (01) ==
LOC: GILAB 12:39
PROVIDERS: Radiology Diagnostic Radiology; PCP Family Medicine; Visit Provider Internal Medicine
PROC: (CPT 49082; principal; 2023-11-18 13:00)
DX: R18.8 Other ascites (principal)
CPT/HCPCS: 49083; 82042; 84157; 87075; 88112; 96365; P9046

== ENCOUNTER 2023-11-30 00:35 | Emergency (ER) | payer MEDICARE, MEDICAID, SELFPAY ==
[2023-11-30 00:39] VITALS: BP 168/86; PULSE 79; RESP 24; TEMP 37.1; O2SAT 94; BMI 25.7
[2023-11-30 01:34] VITALS: PULSE 72; RESP 22; O2SAT 96
[2023-11-30 03:40] VITALS: RESP 16; O2SAT 99
[2023-11-30] MEDS: ondansetron 4 MG Tablet 8 MG PO (03:40)
[2023-11-30] MEDS: HYDROmorphone 1 mg/mL INJ 1 mL IM (03:40)
--- NOTE | 2023-11-30 05:08 | ED_ITS ---
HPI - Male Genitourinary General: Chief complaint: Urogenital-Male Stated complaint: Groin Pain Time Seen by Provider: 11/30/23 02:59 History of Present Illness: 43-year-old male patient well-known to [facility] department. He has a history of end-stage renal disease on dialysis. He has chronic abdominal pain related to ascites. He has a right hydrocele that is very large, and causes him pain at times. He complains tonight of testicular pain, nausea, and vomiting. He last vomited around 20 hours ago. No fever. His next dialysis is Thursday. Review of Systems : Reports: testicular pain and scrotal swelling [facility] ED PFSH: Medical History Acute and chronic respiratory failure with hypoxia Patient under care of multiple providers Hypertensive urgency History of cardiovascular stress test 07/2022 at [facility] perfusion imaging probably normal, no reversible defects, small fixed defect in apical anterior wall, EF 54%, nonischemic response to stress by EKG criteria Depression Epididymitis 06/2022 Pulmonary hypertension Uses bilevel positive airway pressure (BPAP) ventilation at home Umbilical hernia History of home oxygen therapy History of coronary angiogram 11/2021 - patent stent Inguinal hernia Anxiety Chronic respiratory failure on home oxygen and bipap Low back pain Nicotine dependence, cigarettes, with other nicotine-induced disorders Generalized anxiety disorder with panic attacks ESRD on dialysis Atherosclerosis of coronary artery Stent and balloon angioplasty to proximal 1 OM branch Chronic abdominal pain COVID 05/25 Hypertensive emergency recurrent episodes Urethral stricture Abdominal ascites history of intermittent paracentesis, transudative fluid; prior work up has included negative biopsy, ceruloplasmin level normal, low iron, high ferritin, normal TIBC, negative HIV, hepatitis panel negative, JESÚS/SCL 70/double-stranded DNA antibodies negative, Alpha-fetoprotein level unremarkable, nonalcoholic by history, has hepatomegaly and splenomegaly Pulmonary embolism 09/21 CTA inconclusive for very tiny peripheral LEFT lower lobe pulmonary artery sub segmental emboli versus poor opacification. Anemia chronic kidney disease Congestive heart failure preserved ejection fraction COPD (chronic obstructive pulmonary disease) Arteriovenous fistula for hemodialysis in place, secondary Degenerative disc disease, lumbar Hypertension uncontrolled Surgical History Stented coronary artery H/O hand surgery Amputation right 2&3 fingers 2017 History of adenoidectomy Family History Other Hypertension Social History Smoking and tobacco/nicotine status: current every day tobacco/nicotine user cigarettes Packs smoked per day: 1.5 Years cigarettes smoked: 21 [ Other cigarette details: started age 20, currently 0.5ppd ] Alcohol intake: never Substance/Drug Use: never Number of children: 3 Current occupational status: disabled Do you think of yourself as: Straight/Heterosexual Physical Exam Const: COMMON NORMALS: no acute distress GENERAL APPEARANCE: cooperative ORIENTATION/CONSCIOUSNESS: Yes awake Resp: COMMON NORMALS: normal respiratory effort and No use of accessory muscles Cardio: COMMON NORMALS: regular rate and regular rhythm RATE: regular rate RHYTHM: regular rhythm GI: COMMON NORMALS: Soft to palpation INSPECTION: Yes abdominal distension PALPATION: Yes Soft to palpation : OTHER: Large hydrocele on the right, smaller hydrocele on the left. Mild redness. Tenderness to palpation. No streaking. No lymphadenopathy. Course Vital Signs: Vital signs: Vital Signs Temperature 98.7 F 11/30/23 00:39 Pulse Rate 72 11/30/23 01:34 Respiratory Rate 16 11/30/23 03:40 Blood Pressure 168/86 11/30/23 00:39 Pulse Oximetry 99 11/30/23 03:40 Oxygen Delivery Me thod Room Air 11/30/23 01:34 MDM - Male Medical Decision Making The patient says that the testicle stays similarly swollen despite dialysis or paracentesis which she gets weekly. Testicles not cellulitic. He is afebrile. He is given pain and nausea medication here with improvement. Short course of these for the next couple of days until he is able to get dialysis on Thursday and paracentesis on Thursday. No radiology studies performed this visit Discharge Plan Discharge Patient Disposition: Home Clinical Impression: Right hydrocele Abdominal pain Qualifiers: Abdominal location: unspecified location Qualified Code(s): R10.9 - Unspecified abdominal pain Condition: Stable Prescriptions: Continued ondansetron 4 mg tablet,disintegrating 4 mg PO Q8H PRN (Reason: nausea and vomiting) Qty: 10 0RF hydrocodone-acetaminophen 5-325 mg tablet 1 tab PO Q6H PRN (Reason: pain) Qty: 8 0RF No Action (DME) DME - BIPAP See Rx Instructions .Route .MEDSUPPLY Qty: 1 0RF Rx Instructions: Inspiratory Pressure: 16mmHg Expiratory Pressure: 8 mmHg Will need oxygen bled in to the machine to maintain sats >/= 90%. (DME) DME - Oxygen See Rx Instructions .Route .MEDSUPPLY Qty: 1 0RF Rx Instructions: Supplemental Oxygen bled into BIPAP at 2-3L to maintain oxygen sats at >/= 90%. Auryxia 210 mg iron Tablet See Rx Instructions .ROUTE .COMPLEX Rx Instructions: 420 mg (2 tabs) orally three times a day and 210mg (1 tab) with snacks aspirin 81 mg tablet,delayed release (DR/EC) 81 mg PO QAM Patient Comments: pt takes qhs on wednesdays pantoprazole 40 mg tablet,delayed release (DR/EC) 40 mg PO BEDTIME isosorbide mononitrate 120 mg tablet extended release 24 hr 240 mg PO QAM RenaPlex-D 800 mcg-12.5 mg -2,000 unit tablet 1 tab PO QAM carvedilol 25 mg tablet 37.5 mg PO Q12H atorvastatin 40 mg tablet 40 mg PO BEDTIME amlodipine 10 mg tablet 10 mg PO QAM hydralazine 100 mg tablet 100 mg PO Q8H prasugrel 10 mg tablet 10 mg PO QAM cyclobenzaprine 10 mg tablet 10 mg PO BID PRN (Reason: Muscle Spasm) albuterol sulfate 90 mcg/actuation Hfa Aerosol Inhaler 2 puff INHALATION QID PRN (Reason: Shortness Of Breath) Miralax 17 gram/dose powder 17 g PO DAILY Qty: 510 0RF Rx Instructions: Take 1 scoop daily while taking pain medications. Discharge Orders: Discharge ED (Routine); Ordered 11/30/23 Ordered By: Jose Ward Referrals: Delio Salazar MD [Primary Care Provider] - 1-3 days Patient Instructions: Abdominal Pain (ED), Opioid Safety, Pain Management Activity Restrictions/Additional Instructions: Return for fever greater than 100, vomiting liquids or medications, other concerning symptoms. Attend your dialysis as scheduled. Medications as directed. Ice may help as well. Coding Level of Care Code ED Balance Wheel Motion Inspector for Adriannag Roxi
== END 2023-11-30 04:12 | disposition home or self-care (01) ==
PROVIDERS: Emergency Provider Emergency Medicine; PCP Family Medicine
DX: N43.3 Hydrocele, unspecified (principal); Z79.82 Long term (current) use of aspirin; R10.9 Unspecified abdominal pain; F17.210 Nicotine dependence, cigarettes, uncomplicated; I13.2 Hypertensive heart and chronic kidney disease with heart failure and with stage 5 chronic kidney disease, or end stage renal disease; N18.6 End stage renal disease; I50.9 Heart failure, unspecified; Z99.2 Dependence on renal dialysis; J44.9 Chronic obstructive pulmonary disease, unspecified
CPT/HCPCS: 96372; 99284; J1170; Q0162

== ENCOUNTER → 2023-12-02 12:44 | Day surgery (SDC) | payer MEDICARE, MEDICAID, SELFPAY ==
--- NOTE | 2023-12-02 12:50 | US_ITS ---
WS: [id number] ULTRASOUND-GUIDED THERAPEUTIC PARACENTESIS Procedure, risks, and complications have been explained to the patient. Consent is obtained. Utilizing aseptic technique and 1% buffered lidocaine, a small dermatome was made through which a 5 F rench Yueh catheter was inserted. Approximately 5600 ml of clear peritoneal fluid was obtained witho ut difficulty. No complications encountered. US/US paracentesis abd w [id number] IMPRESSION: Uncomplicated paracentesis yielding 5600 ml of peritoneal fluid.
[2023-12-02 12:51] VITALS: BP 165/86; PULSE 74; RESP 16; TEMP 37.2; O2SAT 95
[2023-12-02] MEDS: albumin 50 G/200 ML BAG 60 G IV (14:21)
[2023-12-02 14:29] VITALS: BMI 26.4
[2023-12-02 14:48] LABS: Albumin Peritoneal Fluid 2.2 g/dL
[2023-12-02 20:26] LABS: Cyto Order Verification Order Verified
== END ==
LOC: GILAB 12:45
PROVIDERS: Radiology Diagnostic Radiology; PCP Family Medicine; Visit Provider Internal Medicine
PROC: (CPT 49082; principal; 2023-12-02 13:30)
DX: R18.8 Other ascites (principal)
CPT/HCPCS: 49083; 82042; 84157; 87075; 88112; 96365; P9046

== ENCOUNTER → 2023-12-09 12:43 | Day surgery (SDC) | payer MEDICARE, MEDICAID, SELFPAY ==
[2023-12-09 12:55] VITALS: BP 136/89; PULSE 72; RESP 16; TEMP 36.4; O2SAT 92
--- NOTE | 2023-12-09 13:07 | US_ITS ---
WS: [id number] ULTRASOUND-GUIDED PARACENTESIS CLINICAL INFORMATION: cirrhosis of liver without ascites COMPARISON: None. Procedure Informed consent: The risks, benefits, and alternatives of the procedure were discussed with the mariah ent. Verbal and written consent was obtained. Timeout: A timeout was performed to confirm the correct patient, procedure, and site. Preparation: A suitable skin site was identified. The patient was prepped and draped in usual sterile fashion. Lidocaine 1% was used for local anesthesia. Catheter: 4 German One-step Yueh catheter. Side: LEFT lower quadrant. Fluid Volume: 2600 ml Color: Light orange DISPOSITION: Discarded safely. Complications: None. Patient disposition: Discharged from the department in stable condition. US/US paracentesis abd w [id number] IMPRESSION: Uncomplicated ultrasound-guided paracentesis. Removal of 2600 cc
[2023-12-09 14:44] LABS: Mononuclear #, Pertinoneal Fl 0.186 10^3/uL; Polynuclear # Cells, Perit 0.008 10^3/uL; RBC Pertioneal Fluid 4 10^3/uL; WBC Peritoneal Fluid 194 /uL
[2023-12-09 14:45] LABS: Cyto Order Verification Order Verified
[2023-12-09 14:46] LABS: Appearance, Peritoneal Fluid Cloudy (Clear); Color, Peritoneal Fluid Yellow (Pale Yellow); Pathology Referral Yes
[2023-12-09 15:04] LABS: Total Protein Peritoneal Fluid 3.7 g/dL
== END ==
PROVIDERS: Radiology Neuroradiology; PCP Family Medicine; Visit Provider Internal Medicine
PROC: (CPT 49082; principal; 2023-12-09 13:30)
DX: K74.60 Unspecified cirrhosis of liver (principal)
CPT/HCPCS: 49083; 80503; 82042; 84157; 87075; 88112; 88305; 89050

== ENCOUNTER 2023-12-18 23:05 | Emergency (ER) | payer MEDICARE, MEDICAID, SELFPAY ==
[2023-12-18 23:13] VITALS: BP 159/84; PULSE 76; RESP 18; TEMP 36.2; O2SAT 93; BMI 26.0
[2023-12-18 23:17] VITALS: BP 131/62; O2SAT 93
--- NOTE | 2023-12-18 23:22 | XRR_ITS ---
PROCEDURE INFORMATION: Exam: XR Abdomen Exam date and time: 12/18/2023 11:39 PM Age: 43 years old Clinical indication: Abdominal pain; Generalized; Patient HX: C/O diffuse abd pain. Chronic history of ascites. TECHNIQUE: Imaging protocol: Radiologic exam of the abdomen. Views: Frontal supine view of the abdomen. 1 View. COMPARISON: CT abdomen pelvis w con* [id number] 10/15/2023 10:19 AM FINDINGS: Gastrointestinal tract: Nonobstructive bowel-gas pattern. Bones/joints: Unremarkable. XR/XR abdomen 1V* [id number] IMPRESSION: Nonobstructive bowel-gas pattern.
--- NOTE | 2023-12-18 23:23 | W.ED.MALEGU ---
HPI - Male Genitourinary General: Chief complaint: Urogenital-Male Stated complaint: Groin Pain Time Seen by Provider: 12/18/23 23:18 History of Present Illness: 43-year-old man with a history of end-stage renal disease on dialysis and a chronic hernia and chronic abdominal pain who presents the emergency room with abdominal pain. He says he thinks he overdid it lifting some logs and now he has worsening pain. Said some nausea but no vomiting. He has a large scrotal hernia that appears unchanged from previous visits. I have seen this patient before. No fevers. No altered mental status. Related Data Home Medications Medication Instructions Recorded Confirmed ferric citrate 210 mg iron tablet See Rx Instructions .Route .COMPLEX 11/03/21 12/09/23 (Auryxia) aspirin 81 mg tablet,delayed 81 mg PO QAM 02/21/22 12/09/23 release pantoprazole 40 mg tablet,delayed 40 mg PO BEDTIME 02/21/22 12/09/23 release isosorbide mononitrate 120 mg 240 mg PO QAM 10/01/22 12/09/23 tablet,extended release 24 hr vit B,C-folic ac 800 mcg-zinc 12.5 1 tab PO QAM 10/01/22 12/09/23 mg-selen-D3 2,000 unit-vit E tablet (RenaPlex-D) amlodipine 10 mg tablet 10 mg PO QAM 01/09/23 12/09/23 atorvastatin 40 mg tablet 40 mg PO BEDTIME 01/09/23 12/09/23 carvedilol 25 mg tablet 37.5 mg PO Q12H 01/09/23 12/09/23 hydralazine 100 mg tablet 100 mg PO Q8H 01/09/23 12/09/23 prasugrel 10 mg tablet 10 mg PO QAM 01/09/23 12/09/23 albuterol sulfate 90 mcg/actuation 2 puff inhalation QID PRN 07/29/23 12/09/23 aerosol inhaler Shortness Of Breath cyclobenzaprine 10 mg tablet 10 mg PO BID PRN Muscle Spasm 10/15/23 12/09/23 Previous Rx's Medication Instructions Recorded DME - BIPAP #1 ea 02/25/22 DME - Oxygen #1 ea 02/25/22 ondansetron 4 mg disintegrating 4 mg PO Q8H PRN nausea and 05/04/24 tablet vomiting #10 tabs polyethylene glycol 3350 17 17 g PO DAILY #510 grams 11/11/23 gram/dose oral powder (Miralax) hydrocodone 5 mg-acetaminophen 325 1 tab PO Q6H PRN pain #8 tabs 11/30/23 mg tablet Allergies Allergy/AdvReac Type Severity Reaction Status Date / Time spironolactone Allergy Intermediate facial Verified 12/09/23 12:59 swelling haloperidol [From Haldol] Allergy ADR-Irritab Verified 12/09/23 12:59 le lisinopril Allergy ADR-Swelling Verified 12/09/23 12:59 of the Eye nifedipine Allergy ALGY-Swell Verified 12/09/23 12:59 Lip/Tongue/Throat Review of Systems Narrative: Constitutional symptoms: Negative except as documented in HPI. Skin symptoms: Negative except as documented in HPI. Eye symptoms: Negative except as documented in HPI. ENMT symptoms: Negative except as documented in HPI. Respiratory symptoms: Negative except as documented in HPI. Cardiovascular symptoms: Negative except as documented in HPI. Gastrointestinal symptoms: Negative except as documented in HPI. Genitourinary symptoms: Negative except as documented in HPI. Musculoskeletal symptoms: Negative except as documented in HPI. Neurologic symptoms: Negative except as documented in HPI. Psychiatric symptoms: Negative except as documented in HPI. Endocrine symptoms: Negative except as documented in HPI. PFS ED PFSH: Medical History Acute and chronic respiratory failure with hypoxia Patient under care of multiple providers Hypertensive urgency History of cardiovascular stress test 07/2022 at [facility] perfusion imaging probably normal, no reversible defects, small fixed defect in apical anterior wall, EF 54%, nonischemic response to stress by EKG criteria Depression Epididymitis 06/2022 Pulmonary hypertension Uses bilevel positive airway pressure (BPAP) ventilation at home Umbilical hernia History of home oxygen therapy History of coronary angiogram 11/2021 - patent stent Inguinal hernia Anxiety Chronic respiratory failure on home oxygen and bipap Low back pain Nicotine dependence, cigarettes, with other nicotine-induced disorders Generalized anxiety disorder with panic attacks ESRD on dialysis Atherosclerosis of coronary artery Stent and balloon angioplasty to proximal 1 OM branch Chronic abdominal pain COVID 05/25 Hypertensive emergency recurrent episodes Urethral stricture Abdominal ascites history of intermittent paracentesis, transudative fluid; prior work up has included negative biopsy, ceruloplasmin level normal, low iron, high ferritin, normal TIBC, negative HIV, hepatitis panel negative, JESÚS/SCL 70/double-stranded DNA antibodies negative, Alpha-fetoprotein level unremarkable, nonalcoholic by history, has hepatomegaly and splenomegaly Pulmonary embolism 09/21 CTA inconclusive for very tiny peripheral LEFT lower lobe pulmonary artery sub segmental emboli versus poor opacification. Anemia chronic kidney disease Congestive heart failure preserved ejection fraction COPD (chronic obstructive pulmonary disease) Arteriovenous fistula for hemodialysis in place, secondary Degenerative disc disease, lumbar Hypertension uncontrolled Surgical History Stented coronary artery H/O hand surgery Amputation right 2&3 fingers 2017 History of adenoidectomy Family History Other Hypertension Social History Smoking and tobacco/nicotine status: current every day tobacco/nicotine user cigarettes Packs smoked per day: 1.5 Years cigarettes smoked: 21 [ Other cigarette details: started age 20, currently 0.5ppd ] Alcohol intake: never Substance/Drug Use: never Number of children: 3 Current occupational status: disabled Do you think of yourself as: Straight/Heterosexual Physical Exam Narrative: EXAM NARRATIVE: General: Alert, no acute distress. Skin: Warm, dry. Head: Normocephalic, atraumatic. Neck: Supple, trachea midline. Eye: Extraocular movements are intact. Ears, nose, mouth and throat: mucosa moist. Cardiovascular: Regular, Normal peripheral perfusion. Respiratory: Lungs are clear to auscultation, respirations are non-labored, breath sounds are equal, Symmetrical chest wall expansion. Gastrointestinal: Soft, Nontender, slightly distended, protruding umbilical hernia, large scrotal hernia Musculoskeletal: Normal ROM, no deformity. Neurological: Alert and oriented, No focal neurological deficit observed. Psychiatric: Cooperative, appropriate mood & affect. Course Vital Signs: Vital signs: Vital Signs Temperature 97.2 F L 12/18/23 23:13 Pulse Rate 76 12/18/23 23:13 Respiratory Rate 16 12/19/23 00:30 Blood Pressure 131/62 12/18/23 23:17 Pulse Oximetry 95 12/19/23 00:30 Oxygen Delivery Me thod Room Air 12/18/23 23:13 MDM - Male Medical Decision Making Abdomen x-ray: Nonspecific bowel gas pattern. No evidence of free air or obstruction. This was reviewed and interpreted by myself the emergency room physician. Assessment and plan: Chronic abdominal pain ? 1 p.o. Jenner and IM Toradol here. He is requesting IV narcotics. He has very frequent visits to the emergency room with request for pain medications. He displays drug-seeking behavior. I am not comfortable giving stronger narcotics or writing any prescriptions. - Discharged home - Discussed plan with patient. Answered any questions. - Evaluation and treatment of this problem were appropriate in the emergency setting. All radiology interpretation(s) finalized by discharge Discharge Plan Discharge Patient Disposition: Home Clinical Impression: Chronic abdominal pain Condition: Stable Prescriptions: No Action (DME) DME - BIPAP See Rx Instructions .Route .MEDSUPPLY Qty: 1 0RF Rx Instructions: Inspiratory Pressure: 16mmHg Expiratory Pressure: 8 mmHg Will need oxygen bled in to the machine to maintain sats >/= 90%. (DME) DME - Oxygen See Rx Instructions .Route .MEDSUPPLY Qty: 1 0RF Rx Instructions: Supplemental Oxygen bled into BIPAP at 2-3L to maintain oxygen sats at >/= 90%. Auryxia 210 mg iron Tablet See Rx Instructions .ROUTE .COMPLEX Rx Instructions: 420 mg (2 tabs) orally three times a day and 210mg (1 tab) with snacks aspirin 81 mg tablet,delayed release (DR/EC) 81 mg PO QAM Patient Comments: pt takes qhs on wednesdays pantoprazole 40 mg tablet,delayed release (DR/EC) 40 mg PO BEDTIME isosorbide mononitrate 120 mg tablet extended release 24 hr 240 mg PO QAM RenaPlex-D 800 mcg-12.5 mg -2,000 unit tablet 1 tab PO QAM carvedilol 25 mg tablet 37.5 mg PO Q12H atorvastatin 40 mg tablet 40 mg PO BEDTIME amlodipine 10 mg tablet 10 mg PO QAM hydralazine 100 mg tablet 100 mg PO Q8H prasugrel 10 mg tablet 10 mg PO QAM cyclobenzaprine 10 mg tablet 10 mg PO BID PRN (Reason: Muscle Spasm) albuterol sulfate 90 mcg/actuation Hfa Aerosol Inhaler 2 puff INHALATION QID PRN (Reason: Shortness Of Breath) ondansetron 4 mg tablet,disintegrating 4 mg PO Q8H PRN (Reason: nausea and vomiting) Qty: 10 0RF polyethylene glycol 3350 [Miralax] 17 gram/dose powder 17 g PO DAILY Qty: 510 0RF Rx Instructions: Take 1 scoop daily while taking pain medications. hydrocodone-acetaminophen 5-325 mg tablet 1 tab PO Q6H PRN (Reason: pain) Qty: 8 0RF Rx Instructions: pt states he is out of this med 12/09/23 Discharge Orders: Discharge ED (Routine); Ordered 12/19/23 Ordered By: Naomi Persaud Referrals: Delio Salazar MD [Primary Care Provider] - Discharge Diet: Usual diet Discharge Activity: Increase activity as tolerated Patient Instructions: Abdominal Pain (ED), Opioid Safety, Pain Management Activity Restrictions/Additional Instructions: Thank you for choosing [facility] for your healthcare needs today. Please realize this is an emergency room and that we are providing you with a medical screening exam and this may not be complete and all inclusive of all the testing and or work up that you may need to determine your ailment or severity of your illness. You have been screened and evaluated and felt safe for discharge. Health conditions do change or evolve sometimes and as such it is important that you follow up with your Primary Doctor to be re checked, 3-5 days is a general good time frame for follow up. You are always welcome to return to the ED for re assessment if your symptoms are worsening or you have new concerns Coding Level of Care Code ED Marine Safety Officer for Cristi Diane
[2023-12-18] MEDS: HYDROcodone-acetaminophen 5-325 mg Tablet 1 TAB PO (23:40)
[2023-12-19 00:30] VITALS: RESP 16; O2SAT 95
[2023-12-19 01:00] VITALS: BP 131/62; PULSE 76; RESP 16; TEMP 36.2; O2SAT 95
== END 2023-12-19 01:01 | disposition home or self-care (01) ==
PROVIDERS: Emergency Provider Emergency Medicine; PCP Family Medicine
DX: G89.29 Other chronic pain (principal); R10.9 Unspecified abdominal pain; I13.2 Hypertensive heart and chronic kidney disease with heart failure and with stage 5 chronic kidney disease, or end stage renal disease; N18.6 End stage renal disease; I50.9 Heart failure, unspecified; Z99.2 Dependence on renal dialysis; J44.9 Chronic obstructive pulmonary disease, unspecified; I25.10 Atherosclerotic heart disease of native coronary artery without angina pectoris; Z95.5 Presence of coronary angioplasty implant and graft; F17.210 Nicotine dependence, cigarettes, uncomplicated; Z79.82 Long term (current) use of aspirin
CPT/HCPCS: 74018; 99283

== ENCOUNTER → 2024-01-11 10:04 | Day surgery (SDC) | payer MEDICARE, MEDICAID, SELFPAY ==
[2024-01-11 10:40] VITALS: BP 133/64; PULSE 68; RESP 18; TEMP 36.6; O2SAT 93; BMI 25.9
--- NOTE | 2024-01-11 10:47 | US_ITS ---
WS: [id number] ULTRASOUND-GUIDED THERAPEUTIC AND DIAGNOSTIC PARACENTESIS Procedure, risks, and complications have been explained to the patient. Consent is obtained. Utilizing aseptic technique and 1% buffered lidocaine, a small dermatome was made through which a 5 F rench Yueh catheter was inserted. Approximately 7800 ml of clear peritoneal fluid was obtained witho ut difficulty. No complications encountered. Specimen collected for analysis. US/US paracentesis abd w [id number] IMPRESSION: Uncomplicated paracentesis yielding 7800 ml of peritoneal fluid.
[2024-01-11 11:42] LABS: Mononuclear #, Pertinoneal Fl 0.197 10^3/uL; RBC Pertioneal Fluid 1 10^3/uL; WBC Peritoneal Fluid 207 /uL
[2024-01-11 11:44] LABS: Cyto Order Verification Order Verified
[2024-01-11 12:08] LABS: Albumin Peritoneal Fluid 2.3 g/dL
[2024-01-11 12:09] LABS: Appearance, Peritoneal Fluid Hazy (Clear); Color, Peritoneal Fluid Pale Yellow (Pale Yellow); Total Protein Peritoneal Fluid 4.1 g/dL
[2024-01-11] MEDS: albumin 50 G/200 ML BAG 60 G IV (12:10)
== END ==
PROVIDERS: Radiology Diagnostic Radiology; PCP Family Medicine; Visit Provider Internal Medicine
PROC: (CPT 49082; principal; 2024-01-11 12:00)
DX: R18.8 Other ascites (principal)
CPT/HCPCS: 49083; 80503; 82042; 84157; 87070; 87075; 87205; 88112; 88305; 89050; 96365; P9046

== ENCOUNTER 2024-02-01 11:25 | Day surgery (SDC) | payer MEDICARE, MEDICAID, SELFPAY ==
--- NOTE | 2024-02-01 11:36 | US_ITS ---
WS: [id number] ULTRASOUND ABDOMEN LIMITED CLINICAL INFORMATION: cirrhosis of liver wihtout ascites COMPARISON: None. FINDINGS: Insufficient fluid to safely perform paracentesis today. US/US abdomen lmt fluid [id number] IMPRESSION: See above
[2024-02-01 11:42] VITALS: BP 127/86; PULSE 82; RESP 18; TEMP 36.4; O2SAT 91; BMI 25.9
== END 2024-02-01 12:34 | disposition home or self-care (01) ==
LOC: GILAB 11:25
PROVIDERS: Radiology Neuroradiology; PCP Family Medicine; Visit Provider Internal Medicine
DX: K74.60 Unspecified cirrhosis of liver (principal)
CPT/HCPCS: 49083; 76705

== ENCOUNTER 2024-02-15 11:43 | Day surgery (SDC) | payer MEDICARE, MEDICAID, SELFPAY ==
--- NOTE | 2024-02-15 11:54 | US_ITS ---
WS: [id number] ULTRASOUND-GUIDED PARACENTESIS CLINICAL INFORMATION: Ascites COMPARISON: None. Procedure Informed consent: The risks, benefits, and alternatives of the procedure were discussed with the mariah ent. Verbal and written consent was obtained. Timeout: A timeout was performed to confirm the correct patient, procedure, and site. Preparation: A suitable skin site was identified. The patient was prepped and draped in usual sterile fashion. Lidocaine 1% was used for local anesthesia. Catheter: 4 Guatemalan One-step Yueh catheter. Side: LEFT lower quadrant. Fluid Volume: 7250 ml Color: Clear yellow DISPOSITION: Discarded safely. Complications: None. Patient disposition: Discharged from the department in stable condition. US/US paracentesis abd w [id number] IMPRESSION: Uncomplicated ultrasound-guided paracentesis. Removal of 7250 cc
[2024-02-15 11:56] VITALS: BP 141/86; PULSE 81; RESP 18; TEMP 36.8; O2SAT 92
[2024-02-15 12:49] LABS: Cyto Order Verification No Order
[2024-02-15 12:56] LABS: Apprearance, Body Fluid CLOUDY; Color, Body Fluid PALE YELLOW; PATH Referral YES
[2024-02-15] MEDS: albumin 50 G/200 ML BAG 500 G IV (12:59)
[2024-02-15 13:06] LABS: Body Fluid Polynuclear #Cells 0.043; Body Fluid WBC 371 /uL; Monocytes # Body Fluid 0.328
[2024-02-15 13:14] LABS: Albumin Body Fluid 2.1 g/dL
[2024-02-15 13:25] LABS: Fluid Laterality PARACENTESIS LEFT AB
== END 2024-02-15 13:31 | disposition home or self-care (01) ==
PROVIDERS: Radiology Neuroradiology; PCP Family Medicine; Visit Provider Internal Medicine
PROC: (CPT 49082; principal; 2024-02-15 12:30)
DX: R18.8 Other ascites (principal)
CPT/HCPCS: 49083; 80503; 82042; 84157; 87070; 87075; 87205; 89050; 96365; P9046

== ENCOUNTER → 2024-02-29 11:35 | Day surgery (SDC) | payer MEDICARE, MEDICAID, SELFPAY ==
[2024-02-29 11:40] VITALS: BP 164/92; PULSE 71; RESP 16; TEMP 36.8; O2SAT 93
[2024-02-29 11:49] VITALS: BMI 25.0
--- NOTE | 2024-02-29 12:03 | US_ITS ---
WS: [id number] ULTRASOUND-GUIDED PARACENTESIS CLINICAL INFORMATION: cirrhosis of liver without ascites, hepatic cirrhosis type Procedure Informed consent: The risks, benefits, and alternatives of the procedure were discussed with the mariah ent. Verbal and written consent was obtained. Timeout: A timeout was performed to confirm the correct patient, procedure, and site. Preparation: A suitable skin site was identified. The patient was prepped and draped in usual sterile fashion. Lidocaine 1% was used for local anesthesia. Catheter: 4 Greek One-step In[place]eh catheter. Side: LEFT lower quadrant. Fluid Volume: 8600 ml Color: Clear yellow DISPOSITION: Discarded safely. Complications: None. Patient disposition: Discharged from the department in stable condition. US/US paracentesis abd w [id number] IMPRESSION: Uncomplicated ultrasound-guided paracentesis. Removal of 8600cc
[2024-02-29 12:56] LABS: Mononuclear #, Pertinoneal Fl 0.256 10^3/uL; Polynuclear # Cells, Perit 0.017 10^3/uL; RBC Pertioneal Fluid 1 10^3/uL; WBC Peritoneal Fluid 273 /uL
[2024-02-29] MEDS: albumin 50 G/200 ML BAG 60 G IV (13:12)
[2024-02-29 13:28] LABS: Appearance, Peritoneal Fluid Hazy (Clear); Color, Peritoneal Fluid Pale Yellow (Pale Yellow); Cyto Order Verification Order Verified
[2024-02-29 13:29] LABS: Pathology Referral Yes; Total Protein Peritoneal Fluid 3.8 g/dL
== END ==
PROVIDERS: Radiology Neuroradiology; PCP Family Medicine; Visit Provider Internal Medicine
PROC: (CPT 49082; principal; 2024-02-29 12:30)
DX: K74.60 Unspecified cirrhosis of liver (principal)
CPT/HCPCS: 49083; 80503; 82042; 84157; 87070; 87075; 87205; 88112; 89050; 96365; P9046

== ENCOUNTER 2024-03-20 01:05 | Emergency (ER) | payer MEDICARE, MEDICAID, SELFPAY ==
[2024-03-20 01:06] VITALS: BP 218/125; PULSE 68; RESP 15; TEMP 36.8; O2SAT 99; BMI 23.7
[2024-03-20] MEDS: doxycycline 100 mg Tablet PO (02:12)
[2024-03-20] MEDS: HYDROmorphone 1 mg/mL INJ 1 mL IM (02:13)
[2024-03-20] MEDS: ondansetron 4 MG Tablet PO (02:13)
--- NOTE | 2024-03-20 02:14 | ED_ITS ---
HPI - Abdominal Pain General: Chief Complaint: Abdominal Pain Stated Complaint: stomach and groin pain. infected wound Time Seen by Provider: 03/20/24 01:20 History of Present Illness: 43-year-old male patient well-known to [facility] service large right inguinal hernia and hydrocele. He had a drain placed into the hydrocele at [facility] in [place]. The drainage still present. There are some redness surrounding the drain insertion site, which the patient believes is infected. He has not had any fever. No vomiting. His last dialysis was on Related Data Home Medications Medication Instructions Recorded Confirmed ferric citrate 210 mg iron tablet See Rx Instructions .Route .COMPLEX 11/03/21 03/11/24 (Auryxia) aspirin 81 mg tablet,delayed 81 mg PO QAM 02/21/22 03/11/24 release pantoprazole 40 mg tablet,delayed 40 mg PO BEDTIME 02/21/22 03/11/24 release isosorbide mononitrate 120 mg 240 mg PO QAM 10/01/22 03/11/24 tablet,extended release 24 hr vit B,C-folic ac 800 mcg-zinc 12.5 1 tab PO QAM 10/01/22 03/11/24 mg-selen-D3 2,000 unit-vit E tablet (RenaPlex-D) amlodipine 10 mg tablet 10 mg PO QAM 01/09/23 03/11/24 atorvastatin 40 mg tablet 40 mg PO BEDTIME 01/09/23 03/11/24 carvedilol 25 mg tablet 37.5 mg PO Q12H 01/09/23 03/11/24 hydralazine 100 mg tablet 100 mg PO Q8H 01/09/23 03/11/24 prasugrel 10 mg tablet (Effient) 10 mg PO QAM 01/09/23 03/11/24 albuterol sulfate 90 mcg/actuation 2 puff inhalation QID PRN 07/29/23 03/11/24 aerosol inhaler Shortness Of Breath cyclobenzaprine 10 mg tablet 10 mg PO BID PRN Muscle Spasm 10/15/23 03/11/24 Previous Rx's Medication Instructions Recorded DME - BIPAP #1 ea 02/25/22 DME - Oxygen #1 ea 02/25/22 ondansetron 4 mg disintegrating 4 mg PO Q8H PRN nausea and 09/05/23 tablet vomiting #10 tabs doxycycline hyclate 100 mg tablet 100 mg PO BID 7 days #14 tabs 03/20/24 Allergies Allergy/AdvReac Type Severity Reaction Status Date / Time spironolactone Allergy Intermediate facial Verified 03/11/24 09:56 swelling haloperidol [From Haldol] Allergy ADR-Irritab Verified 03/11/24 09:56 le ketorolac Allergy Unknown Verified 03/11/24 09:56 lisinopril Allergy ADR-Swelling Verified 03/11/24 09:56 of the Eye nifedipine Allergy ALGY-Swell Verified 03/11/24 09:56 Lip/Tongue/Throat [facility] ED PFS: Medical History Acute and chronic respiratory failure with hypoxia Patient under care of multiple providers Hypertensive urgency History of cardiovascular stress test 07/2022 at [facility] perfusion imaging probably normal, no reversible defects, small fixed defect in apical anterior wall, EF 54%, nonischemic response to stress by EKG criteria Depression Epididymitis 06/2022 Pulmonary hypertension Uses bilevel positive airway pressure (BPAP) ventilation at home Umbilical hernia History of home oxygen therapy History of coronary angiogram 11/2021 - patent stent Inguinal hernia Anxiety Chronic respiratory failure on home oxygen and bipap Low back pain Nicotine dependence, cigarettes, with other nicotine-induced disorders Generalized anxiety disorder with panic attacks ESRD on dialysis Atherosclerosis of coronary artery Stent and balloon angioplasty to proximal 1 OM branch Chronic abdominal pain COVID 05/25 Hypertensive emergency recurrent episodes Urethral stricture Abdominal ascites history of intermittent paracentesis, transudative fluid; prior work up has included negative biopsy, ceruloplasmin level normal, low iron, high ferritin, normal TIBC, negative HIV, hepatitis panel negative, JESÚS/SCL 70/double-stranded DNA antibodies negative, Alpha-fetoprotein level unremarkable, nonalcoholic by history, has hepatomegaly and splenomegaly Pulmonary embolism 09/21 CTA inconclusive for very tiny peripheral LEFT lower lobe pulmonary artery sub segmental emboli versus poor opacification. Anemia chronic kidney disease Congestive heart failure preserved ejection fraction COPD (chronic obstructive pulmonary disease) Arteriovenous fistula for hemodialysis in place, secondary Degenerative disc disease, lumbar Hypertension uncontrolled Surgical History Stented coronary artery H/O hand surgery Amputation right 2&3 fingers 2017 History of adenoidectomy Family History Other Hypertension Social History Smoking and tobacco/nicotine status: current every day tobacco/nicotine user cigarettes Packs smoked per day: 1.5 Years cigarettes smoked: 21 [ Other cigarette details: started age 20, currently 0.5ppd ] Alcohol intake: never Substance/Drug Use: never Number of children: 3 Current occupational status: disabled Do you think of yourself as: Straight/Heterosexual Physical Exam Const: COMMON NORMALS: no acute distress GENERAL APPEARANCE: cooperative and ill appearing (He is chronically ill-appearing. At baseline); not in distress ORIENTATION/CONSCIOUSNESS: Yes awake Eye: COMMON NORMALS: Equal, round and reactive pupils present and EOMs intact bilaterally PUPIL: Yes Equal, round and reactive pupils present Neck/C-Spine: GENERAL: Yes trachea midline Resp: COMMON NORMALS: normal respiratory effort and clear to auscultation bilaterally AUSCULTATION: clear to auscultation bilaterally Cardio: COMMON NORMALS: regular rate and regular rhythm RATE: regular rate RHYTHM: regular rhythm GI: OTHER: Examination reveals some tenderness diffusely. He is more tender in the right abdomen than the left. There is scrotal swelling. There is a drain inserted in the skin in the right lower pelvis with a bulb drain present. Minimal surrounding beefy erythematous skin. No streaking. Skin is tender. Distention is present. Umbilical hernia is present, but soft. Course Vital Signs: Vital signs: Vital Signs Temperature 98.3 F 03/20/24 01:06 Pulse Rate 89 03/20/24 02:35 Respiratory Rate 15 03/20/24 01:06 Blood Pressure 210/119 03/20/24 02:35 Pulse Oximetry 97 03/20/24 02:35 Oxygen Delivery Me thod Room Air 03/20/24 01:06 MDM - Abdominal Pain Medical Decision Making Patient will need significant fluid taken off during dialysis. He is hypertensive here. There may be some minimal cellulitis surrounding the drain insertion site in the right pelvis. There is no leaking currently. Systemically, the patient does not appear ill. He is afebrile. He is nontachycardic. He will be discharged on doxycycline. No radiology studies performed this visit Discharge Plan Discharge Patient Disposition: Home Clinical Impression: End-stage renal disease on hemodialysis, Right hydrocele, Uncontrolled hypertension Cellulitis Qualifiers: Site of cellulitis: trunk Site of cellulitis of trunk: abdominal wall Qualified Code(s): L03.311 - Cellulitis of abdominal wall Condition: Stable Prescriptions: New doxycycline hyclate 100 mg tablet 100 mg PO BID 7 Days Qty: 14 0RF No Action (DME) DME - BIPAP See Rx Instructions .Route .MEDSUPPLY Qty: 1 0RF Rx Instructions: Inspiratory Pressure: 16mmHg Expiratory Pressure: 8 mmHg Will need oxygen bled in to the machine to maintain sats >/= 90%. (DME) DME - Oxygen See Rx Instructions .Route .MEDSUPPLY Qty: 1 0RF Rx Instructions: Supplemental Oxygen bled into BIPAP at 2-3L to maintain oxygen sats at >/= 90%. Auryxia 210 mg iron Tablet See Rx Instructions .ROUTE .COMPLEX Rx Instructions: 420 mg (2 tabs) orally three times a day and 210mg (1 tab) with snacks aspirin 81 mg tablet,delayed release (DR/EC) 81 mg PO QAM Patient Comments: pt takes qhs on wednesdays pantoprazole 40 mg tablet,delayed release (DR/EC) 40 mg PO BEDTIME isosorbide mononitrate 120 mg tablet extended release 24 hr 240 mg PO QAM RenaPlex-D 800 mcg-12.5 mg -2,000 unit tablet 1 tab PO QAM carvedilol 25 mg tablet 37.5 mg PO Q12H atorvastatin 40 mg tablet 40 mg PO BEDTIME amlodipine 10 mg tablet 10 mg PO QAM hydralazine 100 mg tablet 100 mg PO Q8H prasugrel [Effient] 10 mg tablet 10 mg PO QAM cyclobenzaprine 10 mg tablet 10 mg PO BID PRN (Reason: Muscle Spasm) albuterol sulfate 90 mcg/actuation Hfa Aerosol Inhaler 2 puff INHALATION QID PRN (Reason: Shortness Of Breath) ondansetron 4 mg tablet,disintegrating 4 mg PO Q8H PRN (Reason: nausea and vomiting) Qty: 10 0RF Discharge Orders: Discharge ED (Routine); Ordered 03/20/24 Ordered By: Jose Ward Referrals: Fl[place]own,Delio M, MD [Primary Care Provider] - 1-3 days (For wound check) Patient Instructions: Hydrocele, Cellulitis (ED), Testicle Pain (ED), Opioid Safety, Pain Management Activity Restrictions/Additional Instructions: Antibiotics as directed. Call your doctor on Thursday for a follow-up appointment for wound check. You should let your surgeon know that you were seen here with redness to your belly wall as well. Monitor for temperatures. Return for fever greater than 100 despite 2-3 more doses of antibiotics, increasing redness or streaking despite 2-3 more doses of antibiotics, vomiting liquids or medications, other concerning symptoms. Coding Level of Care Code ED [employer]er for Cristi Diane
[2024-03-20 02:35] VITALS: BP 210/119; PULSE 89; O2SAT 97
[2024-03-20] MEDS: oxyCODONE-APAP 5-325 mg Tablet 2 TAB PO (02:35)
== END 2024-03-20 02:36 | disposition home or self-care (01) ==
PROVIDERS: Emergency Provider Emergency Medicine; PCP Family Medicine
DX: I13.2 Hypertensive heart and chronic kidney disease with heart failure and with stage 5 chronic kidney disease, or end stage renal disease (principal); N18.6 End stage renal disease; I50.30 Unspecified diastolic (congestive) heart failure; Z99.2 Dependence on renal dialysis; J44.9 Chronic obstructive pulmonary disease, unspecified; N43.3 Hydrocele, unspecified; L03.311 Cellulitis of abdominal wall; Z79.82 Long term (current) use of aspirin; F17.210 Nicotine dependence, cigarettes, uncomplicated
CPT/HCPCS: 96372; 99284; J1171; Q0162

== ENCOUNTER 2024-04-18 11:47 | Day surgery (SDC) | payer MEDICARE, MEDICAID, SELFPAY ==
--- NOTE | 2024-04-18 12:01 | US_ITS ---
WS: [id number] ULTRASOUND-GUIDED THERAPEUTIC AND DIAGNOSTIC PARACENTESIS Procedure, risks, and complications have been explained to the patient. Consent is obtained. Utilizing aseptic technique and 1% buffered lidocaine, a small dermatome was made through which a 5 F rench Yueh catheter was inserted. Approximately 9000 ml of clear peritoneal fluid was obtained witho ut difficulty. No complications encountered. Fluid specimen collected for analysis. US/US paracentesis abd w [id number] IMPRESSION: Uncomplicated paracentesis yielding 9000 ml of peritoneal fluid.
[2024-04-18 12:11] VITALS: BP 178/116; PULSE 73; RESP 22; TEMP 37.2; O2SAT 96; BMI 25.7
[2024-04-18 13:06] VITALS: BP 145/104; PULSE 66; RESP 18; O2SAT 95
[2024-04-18] MEDS: albumin 50 G/200 ML BAG 60 G IV (13:21)
[2024-04-18 13:35] LABS: Color, Peritoneal Fluid Yellow (Pale Yellow)
[2024-04-18 13:36] LABS: Appearance, Peritoneal Fluid Cloudy (Clear); Cyto Order Verification Order Verified; Pathology Referral Yes
[2024-04-18 13:40] LABS: Polynuclear # Cells, Perit 0.011 10^3/uL; RBC Pertioneal Fluid 2 10^3/uL; WBC Peritoneal Fluid 251 /uL
[2024-04-18 13:52] LABS: Albumin Peritoneal Fluid 1.8 g/dL; Total Protein Peritoneal Fluid 3.5 g/dL
== END 2024-04-18 13:57 | disposition home or self-care (01) ==
LOC: GILAB 11:48
PROVIDERS: Radiology Diagnostic Radiology; PCP Family Medicine; Visit Provider Internal Medicine
PROC: (CPT 49082; principal; 2024-04-18 12:30)
DX: R18.8 Other ascites (principal)
CPT/HCPCS: 49083; 80503; 82042; 84157; 87075; 88112; 88305; 89050; 96365; P9046

== ENCOUNTER 2024-05-15 01:23 | Observation (INO) | payer MEDICARE, MEDICAID, SELFPAY ==
[2024-05-15] VITALS (17 sets, daily range): BP systolic 104–157; BP diastolic 61–95; PULSE 70–98; RESP 14–19; TEMP 36.6–36.7; O2SAT 92–99; BMI 25.7
--- NOTE | 2024-05-15 01:51 | XRR_ITS ---
PROCEDURE INFORMATION: Exam: XR Chest Exam date and time: 05/15/2024 1:58 AM Age: 43 years old Clinical indication: Shortness of breath; Prior surgery; Surgery date: 6+ months; Surgery type: Coronary stent; Patient HX: C/O SOB. History of chf and copd. TECHNIQUE: Imaging protocol: Radiologic exam of the chest. Views: 1 view. COMPARISON: CR XR chest 1V portable [id number] 10/14/2023 6:56 PM FINDINGS: Lungs: Unremarkable. No consolidation. Pleural spaces: Unremarkable. No pleural effusion. No pneumothorax. Heart/Mediastinum: Stable cardiomegaly. Bones/joints: Old right posterior 6th rib fracture present. XR/XR chest 1V portable [id number] IMPRESSION: No acute abnormality. Stable cardiomegaly.
[2024-05-15 02:01] LABS: Basophils % 0.7 %; Eosinophils # 0.2 10^3/uL (0.0-0.8); Eosinophils % 2.8 %; Hematocrit 31.7 % (37-53); Lymphocytes # 0.7 10^3/uL (0.8-4.8); Lymphocytes % 10.6 %; Mean Corpuscular HGB Conc 31.9 g/dL (30-55); Mean Corpuscular Hemoglobin 28.1 pg (27-33); Mean Corpuscular Volume 88.3 fl (82-101); Mean Platelet Volume 10.6 fL (7.4-10.4); Monocytes # 0.7 10^3/uL (0.2-0.9); Monocytes % 11.1 %; Neutrophils # 4.59 10^3/uL (1.8-7.7); Neutrophils % 74.6 %; Nucleated Red Blood Cells % 0 %; Platelet Count 181 10^3/cmm (157-399); Red Blood Count 3.59 10^6/uL (3.85-5.65); Red Cell Distribution Width 17.1 % (12.1-15.1); White Blood Count 6.14 10^3/uL (3.29-11.43)
[2024-05-15] MEDS: ondansetron 2 mg/ML SDV 2 mL 4 MG IVP ×5 (02:05→22:28)
[2024-05-15] MEDS: morphine 4 mg/mL SDV 1 mL IVP ×2 (02:07→04:25)
[2024-05-15 02:16] LABS: Alanine Aminotransferase < 5 U/L (0-41); Albumin Level 2.7 g/dL (3.5-5.2); Alkaline Phosphatase 93 U/L (40-130); Anion Gap 15.7 (5-19); Aspartate Amino Transferase 7 U/L (0-40); Blood Urea Nitrogen 33 mg/dL (6-20); C Reactive Protein 121.5 mg/L (0.0-4.9); Calcium 10.2 mg/dL (8.5-10.5); Carbon Dioxide 30 mmol/L (22-29); Chloride 93 mmol/L (98-107); Globulin 3.9 g/dL (1.3-4.6); Glomerular Filtration Rate 8.6 mL/min (90-130); Glucose 85 mg/dL (65-115); Magnesium 1.9 mg/dL (1.7-2.3); Osmolality Calculated 285 mOsm/kg (285-295); Phosphorus 4.4 mg/dL (2.5-4.5); Potassium 4.7 mmol/L (3.5-5.1); Sodium 134 mmol/L (136-145); Total Bilirubin 0.2 mg/dL (0.15-1.2); Total Protein 6.6 g/dL (6.6-8.7)
--- NOTE | 2024-05-15 03:15 | ECG_ITS ---
[facility] Test Date: 2024-05-15 Pat Name: Mal Gibbs Department: Room: Gender: Male Bender Machine: : 1980 Requested By: Jose Negrete Order Number: [id number] Mohini MD: Ruba Hussein M.D. Measurements Intervals [place] Rate: 77 P: 255 NE: 285 QRS: 98 QRSD: 115 T: 116 QT: 394 QTc: 448 Interpretive Statements SINUS RHYTHM WITH FIRST DEGREE AV BLOCK BORDERLINE RIGHT AXIS DEVIATION [QRS AXIS > 90] MODERATE INTRAVENTRICULAR CONDUCTION DELAY [110+ ms QRS DURATION] MARKED T-WAVE ABNORMALITY, CONSIDER LATERAL ISCHEMIA [-0.5+ mV T-WAVE IN I/aVL/V5/V6] Compared to ECG 10/14/2023 18:29:29 Intraventricular conduction delay now present T-wave abnormality now present Possible ischemia now present Myocardial infarct finding no longer present Electronically Signed On 05-17-2024 23:56:35 COMPUTER COMPOSITOR by Ruba Hussein M.D. [email or web address]
--- NOTE | 2024-05-15 03:40 | ED_ITS ---
HPI - SOB/Dyspnea 2 General: Chief Complaint: Shortness of Breath/Dyspnea Stated Complaint: SOB Time Seen by Provider: 05/15/24 01:51 History of Present Illness: HPI Narrative: 43-year-old male with end-stage renal di sease and multiple other medical problems well-known to the emergency department service. He presents with shortness of breath. He was scheduled for dialysis yesterday (Thursday) and could not make it there because of the ice and snow. Has progressively gotten more short of breath across last evening and this morning. He is having some mild chest discomfort. He states that his belly is more distended. He usually has paracentesis every Thursday at this facility. He denies fever. He has been coughing. Related Data Home Medications Medication Instructions Recorded Confirmed ferric citrate 210 mg iron tablet See Rx Instructions .Route .COMPLEX 11/03/21 04/22/24 (Auryxia) aspirin 81 mg tablet,delayed 81 mg PO QAM 02/21/22 04/22/24 release pantoprazole 40 mg tablet,delayed 40 mg PO BEDTIME 02/21/22 04/22/24 release isosorbide mononitrate 120 mg 240 mg PO QAM 10/01/22 04/22/24 tablet,extended release 24 hr vit B,C-folic ac 800 mcg-zinc 12.5 1 tab PO QAM 10/01/22 04/22/24 mg-selen-D3 2,000 unit-vit E tablet (RenaPlex-D) amlodipine 10 mg tablet 10 mg PO QAM 01/09/23 04/22/24 atorvastatin 40 mg tablet 40 mg PO BEDTIME 01/09/23 04/22/24 carvedilol 25 mg tablet 37.5 mg PO Q12H 01/09/23 04/22/24 hydralazine 100 mg tablet 100 mg PO Q8H 01/09/23 04/22/24 prasugrel 10 mg tablet (Effient) 10 mg PO QAM 01/09/23 04/22/24 albuterol sulfate 90 mcg/actuation 2 puff inhalation QID PRN 07/29/23 04/22/24 aerosol inhaler Shortness Of Breath cyclobenzaprine 10 mg tablet 10 mg PO BID PRN Muscle Spasm 10/15/23 04/22/24 Previous Rx's Medication Instructions Recorded DME - BIPAP #1 ea 02/25/22 DME - Oxygen #1 ea 02/25/22 ondansetron 4 mg disintegrating 4 mg PO Q8H PRN nausea and 09/05/23 tablet vomiting #10 tabs Allergies Allergy/AdvReac Type Severity Reaction Status Date / Time spironolactone Allergy Intermediate facial Verified 04/22/24 10:23 swelling haloperidol [From Haldol] Allergy ADR-Irritab Verified 04/22/24 10:23 le ketorolac Allergy Unknown Verified 04/22/24 10:23 lisinopril Allergy ADR-Swelling Verified 04/22/24 10:23 of the Eye nifedipine Allergy ALGY-Swell Verified 04/22/24 10:23 Lip/Tongue/Throat PFSH ED 2 PFSH: Medical History Acute and chronic respiratory failure with hypoxia Patient under care of multiple providers Hypertensive urgency History of cardiovascular stress test 07/2022 at [facility] perfusion imaging probably normal, no reversible defects, small fixed defect in apical anterior wall, EF 54%, nonischemic response to stress by EKG criteria Depression Epididymitis 06/2022 Pulmonary hypertension Uses bilevel positive airway pressure (BPAP) ventilation at home Umbilical hernia History of home oxygen therapy History of coronary angiogram 11/2021 - patent stent Inguinal hernia Anxiety Chronic respiratory failure on home oxygen and bipap Low back pain Nicotine dependence, cigarettes, with other nicotine-induced disorders Generalized anxiety disorder with panic attacks ESRD on dialysis Atherosclerosis of coronary artery Stent and balloon angioplasty to proximal 1 OM branch Chronic abdominal pain COVID 05/25 Hypertensive emergency recurrent episodes Urethral stricture Abdominal ascites history of intermittent paracentesis, transudative fluid; prior work up has included negative biopsy, ceruloplasmin level normal, low iron, high ferritin, normal TIBC, negative HIV, hepatitis panel negative, JESÚS/SCL 70/double-stranded DNA antibodies negative, Alpha-fetoprotein level unremarkable, nonalcoholic by history, has hepatomegaly and splenomegaly Pulmonary embolism 09/21 CTA inconclusive for very tiny peripheral LEFT lower lobe pulmonary artery sub segmental emboli versus poor opacification. Anemia chronic kidney disease Congestive heart failure preserved ejection fraction COPD (chronic obstructive pulmonary disease) Arteriovenous fistula for hemodialysis in place, secondary Degenerative disc disease, lumbar Hypertension uncontrolled Surgical History Stented coronary artery H/O hand surgery Amputation right 2&3 fingers 2017 History of adenoidectomy Family History Other Hypertension Social History Smoking and tobacco/nicotine status: current every day tobacco/nicotine user cigarettes Packs smoked per day: 1.5 Years cigarettes smoked: 21 [ Other cigarette details: started age 20, currently 0.5ppd ] Alcohol intake: never Substance/Drug Use: never Number of children: 3 Current occupational status: disabled Do you think of yourself as: Straight/Heterosexual Physical Exam 2 Const: GENERAL APPEARANCE: cooperative, ill appearing and appears older than stated age ORIENTATION/CONSCIOUSNESS: Yes awake, Yes oriented to person, Yes oriented to place and Yes oriented to time HENMT: COMMON NORMALS: normocephalic, atraumatic and Normal nasal mucous membranes and turbinates present HEAD & SCALP: normocephalic and atraumatic FACE & SINUS: normal facial exam NOSE: Normal nasal mucous membranes and turbinates present Eye: COMMON NORMALS: Equal, round and reactive pupils present and EOMs intact bilaterally PUPIL: Yes Equal, round and reactive pupils present Chest: CHEST: Yes Symmetrical chest wall rise Resp: EFFORT & INSPECTION: Yes tachypneic and Yes labored (Mildly) Cardio: COMMON NORMALS: regular rate and regular rhythm RATE: regular rate RHYTHM: regular rhythm GI: INSPECTION: Yes Abdominal wall edema, Yes abdominal distension and Yes other (Fluid-filled umbilical hernia) Neuro: SENSORIUM/ORIENTATION: Yes oriented to person, Yes oriented to place and Yes oriented to time Course 2 Vital Signs: Vital signs: Vital Signs Temperature 98.0 F 05/15/24 01:26 Pulse Rate 76 05/15/24 03:13 Respiratory Rate 18 05/15/24 02:07 Blood Pressure 112/65 05/15/24 03:13 Pulse Oximetry 92 05/15/24 03:13 Oxygen Delivery Me thod Room Air 05/15/24 03:13 MDM - SOB/Dyspnea Medical Decision Making Patient obviously has fluid retention. He is requiring oxygen which is not normal for him. He is normotensive. Afebrile. Hemoglobin is 10. Creatinine is 7.1. Potassium, magnesium, calcium and phosphorus are normal. Chest x-ray shows no acute abnormality. His CRP is elevated. As he is requiring oxygen, missed dialysis, and has limited access because of the weather, he will be observed. Will perform dialysis as an inpatient here, and if he stays until Thursday morning, can have paracentesis hopefully at that time as well. Lab Data 05/15/24 00:30 05/15/24 00:30 Labs/Radiology: Radiology Impressions Chest X-Ray 05/15/24 01:51 IMPRESSION: No acute abnormality. Stable cardiomegaly. Laboratory Results WBC 6.14 10^3/uL (3.29-11.43) 05/15/24 00:30 RBC 3.59 10^6/uL (3.85-5.65) L 05/15/24 00:30 Hgb 10.10 g/dL (11.27-16.99) L 05/15/24 00:30 Hct 31.7 % (37-53) L 05/15/24 00:30 MCV 88.3 fl (82-101) 05/15/24 00:30 MCH 28.1 pg (27-33) 05/15/24 00:30 MCHC 31.9 g/dL (30-55) 05/15/24 00:30 RDW 17.1 % (12.1-15.1) H 05/15/24 00:30 Plt Count 181 10^3/cmm (157-399) 05/15/24 00:30 MPV 10.6 fL (7.4-10.4) H 05/15/24 00:30 Neut % (Auto) 74.6 % 05/15/24 00:30 Lymph % (Auto) 10.6 % 05/15/24 00:30 [place] % (Auto) 11.1 % 05/15/24 00:30 Eos % (Auto) 2.8 % 05/15/24 00:30 Baso % (Auto) 0.7 % 05/15/24 00:30 Neut # (Auto) 4.59 10^3/uL (1.8-7.7) 05/15/24 00:30 Lymph # (Auto) 0.7 10^3/uL (0.8-4.8) L 05/15/24 00:30 [place] # (Auto) 0.7 10^3/uL (0.2-0.9) 05/15/24 00:30 Eos # (Auto) 0.2 10^3/uL (0.0-0.8) 05/15/24 00:30 Baso # (Auto) 0.0 10^3/uL (0.0-0.1) 05/15/24 00:30 Nucleated RBC % (auto) 0 % 05/15/24 00 Nucleated RBCs # 0.0 /100WBC 05/15/24 00:30 Sodium 134 mmol/L (136-145) L 05/15/24 00:30 Potassium 4.7 mmol/L (3.5-5.1) 05/15/24 00:30 Chloride 93 mmol/L (98-107) L 05/15/24 00: Carbon Dioxide 30 mmol/L (22-29) H 05/15/24 00:30 Anion Gap 15.7 (5-19) 05/15/24 00:30 BUN 33 mg/dL (6-20) H 05/15/24 00:30 Creatinine 7.1 mg/dL (0.7-1.2) H* 05/15/24 00:30 GFR Calculation 8.6 mL/min (90-130) L 05/15/24 00:30 Glucose 85 mg/dL (65-115) 05/15/24 00:30 Calculated Osmolality 285 mOsm/kg (285-295) 05/15/24 00:30 Lactic Acid 0.5 mmol/L (0.5-2.2) 05/15/24 03:21 Calcium 10.2 mg/dL (8.5-10.5) 05/15/24 00:30 Phosphorus 4.4 mg/dL (2.5-4.5) 05/15/24 00:30 Magnesium 1.9 mg/dL (1.7-2.3) 05/15/24 00:30 Total Bilirubin 0.2 mg/dL (0.15-1.2) 05/15/24 00:30 AST 7 U/L (0-40) 05/15/24 00:30 ALT < 5 U/L (0-41) 05/15/24 00:30 Alkaline Phosphatase 93 U/L (40-130) 05/15/24 00:30 C-Reactive Protein 121.5 mg/L (0.0-4.9) H 05/15/24 00:30 Total Protein 6.6 g/dL (6.6-8.7) 05/15/24 00:30 Albumin 2.7 g/dL (3.5-5.2) L 05/15/24 00:30 Globulin 3.9 g/dL (1.3-4.6) 05/15/24 00:30 All radiology interpretation(s) finalized by discharge Discharge Plan Discharge Patient Disposition: Placed in Observation Admit Provider: Emanuel Nation Clinical Impression: End-stage renal disease on hemodialysis, Right hydrocele Respiratory failure with hypoxia Qualifiers: Chronicity: acute on chronic Qualified Code(s): J96.21 - Acute and chronic respiratory failure with hypoxia Coding Level of Care Code ED [facility] for Cristi Diane
[2024-05-15 03:54] LABS: Lactic Sepsis W/Reflex 0.5 mmol/L (0.5-2.2)
[2024-05-15 06:46] LABS: Adenovirus Not Detected (NOT DETECT); Chlamydia Pneumoniae Not Detected (NOT DETECT); Coronavirus 229E,HKU1,NL63,OC4 Not Detected (NOT DETECT); Human Metapneumovirus Not Detected (NOT DETECT); Human Rhinovirus/Enterovirus Not Detected (NOT DETECT); Influenza A Not Detected (NOT DETECT); Influenza A H1 Not Detected (NOT DETECT); Influenza A H1-2009 Not Detected (NOT DETECT); Influenza A H3 Not Detected (NOT DETECT); Influenza B Not Detected (NOT DETECT); Mycoplasma Pneumoniae Not Detected (NOT DETECT); Parainfluenza Virus Type 1 Not Detected (NOT DETECT); Parainfluenza Virus Type 2 Not Detected (NOT DETECT); Parainfluenza Virus Type 3 Not Detected (NOT DETECT); Parainfluenza Virus Type 4 Not Detected (NOT DETECT); Respiratory Syncytial Virus A Not Detected (NOT DETECT); Respiratory Syncytial Virus B Not Detected (NOT DETECT); SARS-COV-2 Not Detected (NOT DETECT)
--- NOTE | 2024-05-15 07:31 | P.HP_ITS ---
Providers/Chief Complaint 2 Admitting Physician: Emanuel Nation MD Primary Care Provider: Delio Salazar MD Chief Complaint: SOB History of Present Illness regino Gibbs is a 43 year old male with a past medical history of chronic renal failure on HD, current smoker, COPD, liver cirrhosis, requiring recurrent paracentesis, hypertension, hyperlipidemia, who presents [facility] due to increased shortness of breath increased abdominal distention, anasarca, after he missed dialysis Patient is stating that he was getting short of breath, does not use oxygen at home anymore, in the ER was requiring 2 to 3 L, he missed dialysis secondary to increment weather. At the time of my evaluation, not complaining of chest pain. Consulted nephro. Hemoglobin is stable. Will place a consult for telemetry nephro Patient is stating that he needs recertification to get oxygen at home Review of Systems 2 Const: Denies: fever(s) Eyes: Denies: change in vision ENMT: Denies: throat pain Card: Denies: chest pain Resp: Reports: dyspnea GI: Denies: abdominal pain Medications/Allergies Home Medications Medication Instructions Recorded Confirmed Last Taken Type ferric citrate 210 mg iron tablet See Rx Instructions .Route .COMPLEX 11/03/21 04/22/24 03/03/24 History (Auryxia) aspirin 81 mg tablet,delayed 81 mg PO QAM 02/21/22 04/22/24 03/03/24 History release pantoprazole 40 mg tablet,delayed 40 mg PO BEDTIME 02/21/22 04/22/24 03/03/24 History release DME - BIPAP #1 ea 02/25/22 04/22/24 03/03/24 Rx DME - Oxygen #1 ea 02/25/22 04/22/24 03/03/24 Rx isosorbide mononitrate 120 mg 240 mg PO QAM 10/01/22 04/22/24 03/03/24 History tablet,extended release 24 hr vit B,C-folic ac 800 mcg-zinc 12.5 1 tab PO QAM 10/01/22 04/22/24 03/03/24 History mg-selen-D3 2,000 unit-vit E tablet (RenaPlex-D) amlodipine 10 mg tablet 10 mg PO QAM 01/09/23 04/22/24 03/03/24 History atorvastatin 40 mg tablet 40 mg PO BEDTIME 01/09/23 04/22/24 03/03/24 History carvedilol 25 mg tablet 37.5 mg PO Q12H 01/09/23 04/22/24 03/03/24 History hydralazine 100 mg tablet 100 mg PO Q8H 01/09/23 04/22/24 03/03/24 History prasugrel 10 mg tablet (Effient) 10 mg PO QAM 01/09/23 04/22/24 03/03/24 History albuterol sulfate 90 mcg/actuation 2 puff inhalation QID PRN 07/29/23 04/22/24 02/29/24 History aerosol inhaler Shortness Of Breath ondansetron 4 mg disintegrating 4 mg PO Q8H PRN nausea and 09/05/23 04/22/24 01/10/24 Rx tablet vomiting #10 tabs cyclobenzaprine 10 mg tablet 10 mg PO BID PRN Muscle Spasm 10/15/23 04/22/24 02/29/24 History Allergies Allergy/AdvReac Type Severity Reaction Status Date / Time spironolactone Allergy Intermediate facial Verified 04/22/24 10:23 swelling haloperidol [From Haldol] Allergy ADR-Irritab Verified 04/22/24 10:23 le ketorolac Allergy Unknown Verified 04/22/24 10:23 lisinopril Allergy ADR-Swelling Verified 04/22/24 10:23 of the Eye nifedipine Allergy ALGY-Swell Verified 04/22/24 10:23 Lip/Tongue/Throat PFSH Acute 2 PFSH: Medical History Acute and chronic respiratory failure with hypoxia Patient under care of multiple providers Hypertensive urgency History of cardiovascular stress test 07/2022 at [facility] perfusion imaging probably normal, no reversible defects, small fixed defect in apical anterior wall, EF 54%, nonischemic response to stress by EKG criteria Depression Epididymitis 06/2022 Pulmonary hypertension Uses bilevel positive airway pressure (BPAP) ventilation at home Umbilical hernia History of home oxygen therapy History of coronary angiogram 11/2021 - patent stent Inguinal hernia Anxiety Chronic respiratory failure on home oxygen and bipap Low back pain Nicotine dependence, cigarettes, with other nicotine-induced disorders Generalized anxiety disorder with panic attacks ESRD on dialysis Atherosclerosis of coronary artery Stent and balloon angioplasty to proximal 1 OM branch Chronic abdominal pain COVID 05/25 Hypertensive emergency recurrent episodes Urethral stricture Abdominal ascites history of intermittent paracentesis, transudative fluid; prior work up has included negative biopsy, ceruloplasmin level normal, low iron, high ferritin, normal TIBC, negative HIV, hepatitis panel negative, JESÚS/SCL 70/double-stranded DNA antibodies negative, Alpha-fetoprotein level unremarkable, nonalcoholic by history, has hepatomegaly and splenomegaly Pulmonary embolism 09/21 CTA inconclusive for very tiny peripheral LEFT lower lobe pulmonary artery sub segmental emboli versus poor opacification. Anemia chronic kidney disease Congestive heart failure preserved ejection fraction COPD (chronic obstructive pulmonary disease) Arteriovenous fistula for hemodialysis in place, secondary Degenerative disc disease, lumbar Hypertension uncontrolled Surgical History Stented coronary artery H/O hand surgery Amputation right 2&3 fingers 2016 History of adenoidectomy Family History Other Hypertension Social History Smoking and tobacco/nicotine status: current every day tobacco/nicotine user cigarettes Packs smoked per day: 1.5 Years cigarettes smoked: 21 [ Other cigarette details: started age 20, currently 0.5ppd ] Alcohol intake: never Substance/Drug Use: never Number of children: 3 Current occupational status: disabled Do you think of yourself as: Straight/Heterosexual Vitals/I&O/Wt Last Vital Signs Temp 97.9 F 05/15/24 04:38 Pulse 74 05/15/24 05:59 Resp 14 05/15/24 04:38 BP 143/87 05/15/24 04:38 Pulse Ox 95 05/15/24 04:38 O2 Del Method Nasal Cannula 05/15/24 04:38 05/14/24 05/15/24 05/15/24 22:59 06:59 14:59 Intake Total 0 / 0 Output Total 0 / 0 Balance 0 / 0 Weight last 48 hrs Weight 88.451 kg Weight 88.451 kg Weight 88.451 kg Physical Exam 2 Narrative: Anasarca Currently on 2 L Pleasant and cooperative Nonfocal neuroexam GCS 15 S1, S2 Blood pressure 143/87 mmHg No active shortness of breath Patient is in Semi-Sorto position 40 degrees Lower extremity significant swelling Data 05/15/24 00:30 05/15/24 00:30 A&P Assessment and plan (1) Noncompliance: (2) Adjustment disorder with mixed disturbance of emotions and conduct: (3) Uncontrolled hypertension: (4) Hernia, inguinal, right: (5) End-stage renal disease on hemodialysis: (6) Right hydrocele: (7) Respiratory failure with hypoxia: Qualifiers: Chronicity: acute on chronic Qualified Code(s): J96.21 - Acute and chronic respiratory failure with hypoxia Plan Hypoxia related to volume overload Anasarca End-stage renal disease Will need home oxygen evaluation before discharge Noncompliant Missed dialysis on Thursday secondary to increment weather I have placed a nephro consult Left voicemail to [facility] 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 Will start patient on renal diet with fluid restriction Continue dual antiplatelet therapy Requested respiratory panel Patient is afebrile hemodynamically stable Resistant hypertension continue antihypertensive regimen Chronic right-sided hydrocele: No active testicular pain Full code DVT prophylaxis heparin Renal diet Patient can be discharged today after dialysis Attestations 2 Medical Necessity Statement*: Anticipating discharge within 24 to 48 hours Diagnoses Noncompliance Z91.199 Adjustment disorder with mixed disturbance of emotions and conduct F43.25 Uncontrolled hypertension I10 Hernia, inguinal, right K40.90 End-stage renal disease on hemodialysis N18.6; Z99.2 Right hydrocele N43.3 Respiratory failure with hypoxia J96.21 Chronicity: acute on chronic
--- NOTE | 2024-05-15 09:56 | PM.CONSULT ---
Providers/Reason For Consult Consulting Physician/Specialty*: kommana/Nephrology Reason for Consult*: ESRD Attending Physician: Tiarra Villegas MD Primary Care Provider: Delio Salazar MD History of Present Illness History of Present Illness Mal Gibbs is a 43 year old male Patient is a 43-year-old male with past medical history of end-stage renal disease on dialysis per TTS schedule, liver cirrhosis with portal hypertension requires recurrent paracentesis, COPD, noncompliance with hemodialysis presented to the emergency department due to shortness of breath. Patient has missed dialysis. Patient currently is on 3 L oxygen and in no distress. Other vital signs are stable, lab data reviewed. Review of Systems Narrative: NEGATIVE Medications/Allergies Home Medications Medication Instructions Recorded Confirmed Last Taken Type ferric citrate 210 mg iron tablet See Rx Instructions .Route .COMPLEX 11/03/21 04/22/24 03/03/24 History (Auryxia) aspirin 81 mg tablet,delayed 81 mg PO QAM 02/21/22 04/22/24 03/03/24 History release pantoprazole 40 mg tablet,delayed 40 mg PO BEDTIME 02/21/22 04/22/24 03/03/24 History release DME - BIPAP #1 ea 02/25/22 04/22/24 03/03/24 Rx DME - Oxygen #1 ea 02/25/22 04/22/24 03/03/24 Rx isosorbide mononitrate 120 mg 240 mg PO QAM 10/01/22 04/22/24 03/03/24 History tablet,extended release 24 hr vit B,C-folic ac 800 mcg-zinc 12.5 1 tab PO QAM 10/01/22 04/22/24 03/03/24 History mg-selen-D3 2,000 unit-vit E tablet (RenaPlex-D) amlodipine 10 mg tablet 10 mg PO QAM 01/09/23 04/22/24 03/03/24 History atorvastatin 40 mg tablet 40 mg PO BEDTIME 01/09/23 04/22/24 03/03/24 History carvedilol 25 mg tablet 37.5 mg PO Q12H 01/09/23 04/22/24 03/03/24 History hydralazine 100 mg tablet 100 mg PO Q8H 01/09/23 04/22/24 03/03/24 History prasugrel 10 mg tablet (Effient) 10 mg PO QAM 01/09/23 04/22/24 03/03/24 History albuterol sulfate 90 mcg/actuation 2 puff inhalation QID PRN 07/29/23 04/22/24 02/29/24 History aerosol inhaler Shortness Of Breath ondansetron 4 mg disintegrating 4 mg PO Q8H PRN nausea and 09/05/23 04/22/24 01/10/24 Rx tablet vomiting #10 tabs cyclobenzaprine 10 mg tablet 10 mg PO BID PRN Muscle Spasm 10/15/23 04/22/24 02/29/24 History Allergies Allergy/AdvReac Type Severity Reaction Status Date / Time spironolactone Allergy Intermediate facial Verified 04/22/24 10:23 swelling haloperidol [From Haldol] Allergy ADR-Irritab Verified 04/22/24 10:23 le ketorolac Allergy Unknown Verified 04/22/24 10:23 lisinopril Allergy ADR-Swelling Verified 04/22/24 10:23 of the Eye nifedipine Allergy ALGY-Swell Verified 04/22/24 10:23 Lip/Tongue/Throat Current Medications Generic Name Dose Route Start Last Admin Trade Name Freq PRN Reason Stop Dose Admin Carvedilol 37.5 mg 05/15/24 08:00 05/15/24 08:21 Carvedilol 25 Mg Tablet PO Not Given Q12H [facility] Heparin Sodium (Porcine) 5,000 unit 05/15/24 08:00 05/15/24 09:32 Heparin 5,000 Unit/Ml Inj 1 Ml SUBCUT Not Given Q12H ARTEM Hydralazine HCl 100 mg 05/15/24 08:00 05/15/24 08:22 Hydralazine 50 Mg Tablet PO Not Given Q8H ARTEM Ondansetron HCl 4 mg 05/15/24 07:23 05/15/24 09:24 Ondansetron 2 Mg/Ml Sdv 2 Ml IVP 4 mg Q6H PRN Administration NAUSEA AND VOMITING PFSH Acute PFSH: Medical History Acute and chronic respiratory failure with hypoxia Patient under care of multiple providers Hypertensive urgency History of cardiovascular stress test 07/2022 at [facility] perfusion imaging probably normal, no reversible defects, small fixed defect in apical anterior wall, EF 54%, nonischemic response to stress by EKG criteria Depression Epididymitis 06/2022 Pulmonary hypertension Uses bilevel positive airway pressure (BPAP) ventilation at home Umbilical hernia History of home oxygen therapy History of coronary angiogram 11/2021 - patent stent Inguinal hernia Anxiety Chronic respiratory failure on home oxygen and bipap Low back pain Nicotine dependence, cigarettes, with other nicotine-induced disorders Generalized anxiety disorder with panic attacks ESRD on dialysis Atherosclerosis of coronary artery Stent and balloon angioplasty to proximal 1 OM branch Chronic abdominal pain COVID 05/25 Hypertensive emergency recurrent episodes Urethral stricture Abdominal ascites history of intermittent paracentesis, transudative fluid; prior work up has included negative biopsy, ceruloplasmin level normal, low iron, high ferritin, normal TIBC, negative HIV, hepatitis panel negative, JESÚS/SCL 70/double-stranded DNA antibodies negative, Alpha-fetoprotein level unremarkable, nonalcoholic by history, has hepatomegaly and splenomegaly Pulmonary embolism 09/21 CTA inconclusive for very tiny peripheral LEFT lower lobe pulmonary artery sub segmental emboli versus poor opacification. Anemia chronic kidney disease Congestive heart failure preserved ejection fraction COPD (chronic obstructive pulmonary disease) Arteriovenous fistula for hemodialysis in place, secondary Degenerative disc disease, lumbar Hypertension uncontrolled Surgical History Stented coronary artery H/O hand surgery Amputation right 2&3 fingers 2017 History of adenoidectomy Family History Other Hypertension Social History Smoking and tobacco/nicotine status: current every day tobacco/nicotine user cigarettes Packs smoked per day: 1.5 Years cigarettes smoked: 21 [ Other cigarette details: started age 20, currently 0.5ppd ] Alcohol intake: never Substance/Drug Use: never Number of children: 3 Current occupational status: disabled Do you think of yourself as: Straight/Heterosexual Vitals/I&O/Wt Last Vital Signs Temp 97.9 F 05/15/24 07:53 Pulse 76 05/15/24 07:53 Resp 18 05/15/24 07:53 BP 104/61 05/15/24 07:53 Pulse Ox 93 05/15/24 07:53 O2 Del Method Nasal Cannula 05/15/24 07:53 O2 Flow Rate 2 05/15/24 07:53 05/14/24 05/15/24 05/15/24 22:59 06:59 14:59 Intake Total 0 / 0 Output Total 0 / 0 Balance 0 / 0 Weight last 48 hrs Weight 88.451 kg Weight 88.451 kg Weight 88.451 kg Physical Exam Narrative: awake , alert , no distress PEERLA on 3L o2 by NC s1s2 RRR per report Lungs clear per report No edema Data 05/15/24 00:30 05/15/24 00:30 A&P Assessment and plan (1) End stage renal disease on dialysis: 43-year-old gentleman ESRD, COPD, liver cirrhosis. Patient presented with shortness of breath , missed HD . 1. ESRD : Patient normally gets dialysis on a Thursday schedule.HD later today or in AM , uf as tolerated 2. Anemia : Hemoglobin acceptable at 10.10 . Epogen as needed 3. HTN : bp controlled 4. Acute on chronic resp failure , o2 dep 5. Liver cirrhosis , plan for paracentesis in am Patient encouraged to take medications and not miss dialysis. Consent for hemodialysis and telehealth obtained from the patient. Patient was seen using audiovisual equipment with the help of the nurse as a telehealth visit. Plan See above. Consult Attestations Medical Necessity Statement: per howie team Coding Level of Care Code Acute Code for Chg Fwd Diagnoses End stage renal disease on dialysis N18.6; Z99.2
--- NOTE | 2024-05-15 10:28 | PM.MISC ---
Miscellaneous Note Purpose of Documentation: Patient missed dialysis due to bad weather. Plan to dialyze today. Patient was planned to be discharged after dialysis, however he states he has scheduled paracentesis here tomorrow. He has been having a rough time coming back and forth to the hospital due to inclement weather. Does not have reliable transportation. Therefore we will plan to perform paracentesis tomorrow and discharge him after.
[2024-05-15] MEDS: morphine 4 mg/mL SDV 1 mL 2 MG IVP ×3 (11:11→21:10)
--- NOTE | 2024-05-15 12:28 | PC.HD ---
Per Dr. Hilario ok to hold HD until tomorrow morning (05/16/2024). This abrasive grader helper will arrive early a.m. and coordinate HD with planned paracentesis, so patient may be discharged after both procedures.
[2024-05-15] MEDS: hyDRALAzine 50 mg Tablet 100 MG PO ×2 (15:18→23:50)
--- NOTE | 2024-05-15 17:17 | PC.NURSE ---
home meds Pt unable to verify if he is still taking imdur and norvasc, he said, his sister Ambar usually set up his meds at home. Attempted to call his sister but unable to answer. message left through voicemail.
[2024-05-15] MEDS: carvedilol 25 mg Tablet 37.5 MG PO (21:05)
[2024-05-16] VITALS (22 sets, daily range): BP systolic 92–139; BP diastolic 53–83; PULSE 54–89; RESP 16–19; TEMP 36.4–37; O2SAT 83–97
[2024-05-16] MEDS: morphine 4 mg/mL SDV 1 mL 2 MG IVP ×5 (01:15→22:37)
[2024-05-16] MEDS: saline nasal spray 44mL Btl 1 SPRAY NASAL (03:35)
[2024-05-16] MEDS: phenol oral Spray 177 mL 3 SPRAY MUCOUS MEM (03:35)
[2024-05-16 06:28] LABS: Basophils # 0.1 10^3/uL (0.0-0.1); Basophils % 1.2 %; Eosinophils # 0.3 10^3/uL (0.0-0.8); Eosinophils % 4.1 %; Hematocrit 27.5 % (37-53); Lymphocytes # 0.6 10^3/uL (0.8-4.8); Lymphocytes % 9.8 %; Mean Corpuscular HGB Conc 30.9 g/dL (30-55); Mean Corpuscular Hemoglobin 28.7 pg (27-33); Mean Corpuscular Volume 92.9 fl (82-101); Mean Platelet Volume 11.9 fL (7.4-10.4); Monocytes # 0.6 10^3/uL (0.2-0.9); Monocytes % 9.3 %; Neutrophils # 4.56 10^3/uL (1.8-7.7); Neutrophils % 75.3 %; Nucleated Red Blood Cells % 0 %; Platelet Count 199 10^3/cmm (157-399); Red Blood Count 2.96 10^6/uL (3.85-5.65); Red Cell Distribution Width 17.1 % (12.1-15.1); White Blood Count 6.05 10^3/uL (3.29-11.43)
[2024-05-16 06:40] LABS: INR 1.06 (0.8-1.2)
[2024-05-16] MEDS: isosorbide mononitrate ER 60 mg Tablet 240 MG PO (06:41)
[2024-05-16] MEDS: aspirin 81 mg EC Tablet PO (06:41)
[2024-05-16] MEDS: b-complex-vitamin c Tablet 1 EACH PO (06:41)
[2024-05-16] MEDS: amlodipine 10 mg Tablet PO (06:41)
--- NOTE | 2024-05-16 07:16 | PM.PN ---
Subjective Subjective: weak, sore, not feeling well. +SOB, nausea. Medications: Reviewed: Yes Medication Review Details: Current Medications Acetaminophen (Acetaminophen 500 Mg Tablet) 500 mg PO Q4H PRN PRN Reason: fever Albuterol/Ipratropium (Ipratropium-Albuterol 3 Ml Neb) 3 ml INHALATION Q6H PRN PRN Reason: SHORTNESS OF BREATH Amlodipine Besylate (Amlodipine 10 Mg Tablet) 10 mg PO [facility] Last Admin: 05/16/24 06:41 Dose: 10 mg Aspirin (Aspirin 81 Mg Ec Tablet) 81 mg PO [facility] Last Admin: 05/16/24 06:41 Dose: 81 mg Carvedilol (Carvedilol 25 Mg Tablet) 37.5 mg PO Q12H [facility] Last Admin: 05/15/24 21:05 Dose: 37.5 mg Heparin Sodium (Porcine) (Heparin 5,000 Unit/Ml Inj 1 Ml) 5,000 unit SUBCUT Q12H [facility] Last Admin: 05/15/24 09:32 Dose: Not Given Hydralazine HCl (Hydralazine 50 Mg Tablet) 100 mg PO Q8H [facility] Last Admin: 05/15/24 23:50 Dose: 100 mg Sodium Chloride (Sodium Chloride 0.9%) 1,000 mls @ 0 mls/hr IV .Q0M PRN PRN Reason: hypotension or symptomatic Albumin Human (Albumin) 12.5 gm in 50 mls @ 60 mls/hr IV PRN PRN PRN Reason: Hypotension and/or symptomatic Isosorbide Mononitrate (Isosorbide Mononitrate Er 60 Mg Tablet) 240 mg PO [facility] Last Admin: 05/16/24 06:41 Dose: 240 mg Morphine Sulfate (Morphine 4 Mg/Ml Sdv 1 Ml) 2 mg IVP Q4H PRN PRN Reason: SEVERE PAIN Last Admin: 05/16/24 01:15 Dose: 2 mg Multivitamins (L-Rmvtthz-Jxjimzn C Tablet) 1 each PO [facility] Last Admin: 05/16/24 06:41 Dose: 1 each Ondansetron HCl (Ondansetron 2 Mg/Ml Sdv 2 Ml) 4 mg IVP Q6H PRN PRN Reason: NAUSEA AND VOMITING Last Admin: 05/15/24 22:28 Dose: 4 mg Phenol (Phenol Oral Aneta 177 Ml) 3 spray MUCOUS MEM Q2H PRN PRN Reason: SORE THROAT Last Admin: 05/16/24 03:35 Dose: 3 spray Prasugrel (Prasugrel 10 Mg Tablet) 10 mg PO QAM ARTEM Sodium Chloride (Saline Nasal Aneta 44ml Btl) 1 spray NASAL PRN PRN PRN Reason: DRYNESS Last Admin: 05/16/24 03:35 Dose: 1 spray Vitals/I&O/Wt Last Vital Signs Temp 98.6 F 05/16/24 04:00 Pulse 89 05/16/24 06:48 Resp 19 H 05/16/24 04:00 BP 139/78 05/16/24 04:00 Pulse Ox 96 05/16/24 04:00 O2 Del Method Nasal Cannula 05/16/24 04:00 O2 Flow Rate 2 05/16/24 04:00 05/15/24 05/16/24 05/16/24 22:59 06:59 14:59 Intake Total 120 / 360 220 / 580 Balance 120 / 360 220 / 580 Weight last 48 hrs Weight 88.813 kg Weight 88.451 kg Weight 88.451 kg Weight 88.451 kg Physical Exam Narrative: comfortable in bed, NARD vs noted heent- nc/at, esther, anicteric neck supple lungs dull bases heart reg, +s1, s2 abdomen soft, nt, distended +BS ext no edema +LUE AVF w/ thrill and bruit neuro- a,a, o x 3 Data 05/16/24 05:37 05/15/24 00:30 A&P Assessment and plan (1) End stage renal disease on dialysis: 43 year old male with a past medical history of chronic renal failure on HD, current smoker, COPD, liver cirrhosis, requiring recurrent paracentesis, hypertension, hyperlipidemia, who presents [facility] due to increased shortness of breath increased abdominal distention, anasarca, after he missed dialysis 1. ESRD- HD today 2. anemia- monitor hgb. assess for bleed 3. Q paracentesis today 4. BP well controlled- dec meds seen and examined using Audio-visual equipment with the aid of a nurse pt consented to hemodialysis and telehealth Plan HD today Attestations Medical Necessity Statement*: per medicine Time Spent in Patient Care: 16 - 35 minutes (>than 50% of time spent in counselling and/or direct pt care on unit). Coding Level of Care Code Acute Code for Chg Fwd Diagnoses End stage renal disease on dialysis N18.6; Z99.2
--- NOTE | 2024-05-16 07:29 | PC.NURSE ---
Pt to dialysis
[2024-05-16 08:07] LABS: Iron 32 ug/dL (59-158); Percent Saturation 23.1 % (20-50); Total Iron Binding Capacity 138 mcg/dl; Unsaturated Iron Binding 106 ug/dL (112-347)
[2024-05-16 08:23] LABS: Ferritin 1618 ng/mL (30-400)
[2024-05-16 08:41] LABS: Anion Gap 16.6 (5-19); Blood Urea Nitrogen 31 mg/dL (6-20); Calcium 9.3 mg/dL (8.5-10.5); Carbon Dioxide 28 mmol/L (22-29); Chloride 98 mmol/L (98-107); Creatinine Clr Calc Pharmacy 17.6561; Glomerular Filtration Rate 9.5 mL/min (90-130); Glucose 82 mg/dL (65-115); Magnesium 1.9 mg/dL (1.7-2.3); Osmolality Calculated 290 mOsm/kg (285-295); Potassium 5.6 mmol/L (3.5-5.1); Sodium 137 mmol/L (136-145)
--- NOTE | 2024-05-16 09:34 | PC.CHAP ---
Pastoral Care Encounter/Spiritual Assessment Type of Contact [] Declined server support technician visit [] Patient/Family/Request visit [] Outpatient visit [] Follow-up visit [] Physician referral [] Code/Alert [x] Routine visit [] Staff referral [] Actively dying [] Patient sleeping [] Family support [] [] Out of room [] Palliative care [] [] Receiving care in room [] Pre-surgical visit [] Trauma [] Long length of stay [] ICU visit [] Other: Relational/Emotional Strength [] Patient feels connected with others/family/visitors/staff [] Distress [] Loneliness/isolation [] Abandonment Spirituality of Patient [x] Person of Ct [] Attends Mormonism of their Ct [x] Believes in Prayer [] Reads Bible or Moravian materials [] There are Spiritual issues to be addressed Bellstand Attendant Interventions [x] Prayer [x] Active listening [] Non-anxious presence [] Spiritual/emotional support [] Crisis/trauma care [] Spiritual counseling [] Bereavement support [] Provided bereavement packet [] Provided Bible/devotional materials [] Provided toy/stuffed animal, coloring book to patient or family member [] Provided Communion [] Anointing/[place] [] Salvation [x] Completed spiritual assessment [] Other: Impact on Illness or Injury [] Angry [] Fearful [] Anxious [] Often cries [] Exhaustion [] Unable to work [] Unable to attend samaritan [] Unable to walk/stand [] Unable to read [] Unable to drive [] Unable to eat/drink [] Unable to sleep [] Unable to be with family [] Patient intubated [] Other: Summary Time spent with patient 5 min
--- NOTE | 2024-05-16 10:29 | US_ITS ---
WS: [id number] ULTRASOUND-GUIDED THERAPEUTIC PARACENTESIS Procedure, risks, and complications have been explained to the patient. Consent is obtained. Utilizing aseptic technique and 1% buffered lidocaine, a small dermatome was made through which a 5 F rench Yueh catheter was inserted. Approximately 3000 ml of clear peritoneal fluid was obtained witho ut difficulty. No complications encountered. US/US paracentesis [id number] [id number] IMPRESSION: Uncomplicated paracentesis yielding 3000 ml of peritoneal fluid.
--- NOTE | 2024-05-16 11:27 | PC.NURSE ---
Pt back from dialysis
[2024-05-16] MEDS: prasugrel 10 MG Tablet PO (11:31)
[2024-05-16] MEDS: carvedilol 25 mg Tablet 37.5 MG PO ×2 (11:31→22:10)
[2024-05-16] MEDS: hyDRALAzine 50 mg Tablet PO ×2 (11:32→22:41)
--- NOTE | 2024-05-16 12:51 | P.DS_ITS ---
Discharge Providers Date of Admission: 05/15/24 03:45 Date of Discharge: May 16, 2024 Attending Provider at Admission: Emanuel Nation MD Attending Provider at Discharge: Brigitte Amin MD Primary Care Provider: Delio Salazar MD Diagnoses at Discharge Discharge Diagnosis (1) End stage renal disease on dialysis: Status: Acute Reason for Visit Reason for Visit: SOB Discharge Data Studies Completed and Pending Completed Studies During Hospitalization Category Date Time Status XR chest 1V portable [id number] Stat Exams 05/15/24 01:51 Completed Pending at discharge Category Date Time Status US paracentesis abd w [id number] Routine Ultrasound 05/16/24 10:29 Taken Radiology Impressions Chest X-Ray 05/15/24 01:51 IMPRESSION: No acute abnormality. Stable cardiomegaly. Laboratory Results WBC 6.05 10^3/uL (3.29-11.43) 05/16/24 05:37 RBC 2.96 10^6/uL (3.85-5.65) L 05/16/24 05:37 Hgb 8.50 g/dL (11.27-16.99) L 05/16/24 05:37 Hct 27.5 % (37-53) L 05/16/24 05:37 MCV 92.9 fl (82-101) 05/16/24 05:37 MCH 28.7 pg (27-33) 05/16/24 05:37 MCHC 30.9 g/dL (30-55) 05/16/24 05:37 RDW 17.1 % (12.1-15.1) H 05/16/24 05:37 Plt Count 199 10^3/cmm (157-399) 05/16/24 05:37 MPV 11.9 fL (7.4-10.4) H 05/16/24 05:37 Neut % (Auto) 75.3 % 05/16/24 05:37 Lymph % (Auto) 9.8 % 05/16/24 05:37 [place] % (Auto) 9.3 % 05/16/24 05:37 Eos % (Auto) 4.1 % 05/16/24 05:37 Baso % (Auto) 1.2 % 05/16/24 05:37 Neut # (Auto) 4.56 10^3/uL (1.8-7.7) 05/16/24 05:37 Lymph # (Auto) 0.6 10^3/uL (0.8-4.8) L 05/16/24 05:37 [place] # (Auto) 0.6 10^3/uL (0.2-0.9) 05/16/24 05:37 Eos # (Auto) 0.3 10^3/uL (0.0-0.8) 05/16/24 05:37 Baso # (Auto) 0.1 10^3/uL (0.0-0.1) 05/16/24 05:37 Nucleated RBC % (auto) 0 % 05/16/24 05:37 Nucleated RBCs # 0.0 /100WBC 05/16/24 05:37 PT 14.60 SECONDS (12.1-14.9) 05/16/24 05:37 INR 1.06 (0.8-1.2) 05/16/24 05:37 Sodium 137 mmol/L (136-145) 05/16/24 08:10 Potassium 5.6 mmol/L (3.5-5.1) H 05/16/24 08:10 Chloride 98 mmol/L (98-107) 05/16/24 08:10 Carbon Dioxide 28 mmol/L (22-29) 05/16/24 08:10 Anion Gap 16.6 (5-19) 05/16/24 08:10 BUN 31 mg/dL (6-20) H 05/16/24 08:10 Creatinine 6.5 mg/dL (0.7-1.2) H* 05/16/24 08:10 GFR Calculation 9.5 mL/min (90-130) L 05/16/24 08:10 Glucose 82 mg/dL (65-115) 05/16/24 08:10 Calculated Osmolality 290 mOsm/kg (285-295) 05/16/24 08:10 Lactic Acid 0.5 mmol/L (0.5-2.2) 05/15/24 03:21 Calcium 9.3 mg/dL (8.5-10.5) 05/16/24 08:10 Phosphorus 4.4 mg/dL (2.5-4.5) 05/15/24 00:30 Magnesium 1.9 mg/dL (1.7-2.3) 05/16/24 08:10 Iron Cancelled 05/16/24 08:10 TIBC Cancelled 05/16/24 08:10 % Saturation Cancelled 05/16/24 08:10 Unsat Iron Binding Cancelled 05/16/24 08:10 Ferritin Cancelled 05/16/24 08:10 Total Bilirubin 0.2 mg/dL (0.15-1.2) 05/15/24 00:30 AST 7 U/L (0-40) 05/15/24 00:30 ALT < 5 U/L (0-41) 05/15/24 00:30 Alkaline Phosphatase 93 U/L (40-130) 05/15/24 00:30 C-Reactive Protein 121.5 mg/L (0.0-4.9) H 05/15/24 00:30 Total Protein 6.6 g/dL (6.6-8.7) 05/15/24 00:30 Albumin 2.7 g/dL (3.5-5.2) L 05/15/24 00:30 Globulin 3.9 g/dL (1.3-4.6) 05/15/24 00:30 Adenovirus (PCR) Not detected (NOT DETECT) 05/15/24 04:08 C. pneumoniae DNA (PCR) Not detected (NOT DETECT) 05/15/24 04:08 Coronavirus 229E (PCR) Not detected (NOT DETECT) 05/15/24 04:08 Human Metapneumovir PCR Not detected (NOT DETECT) 05/15/24 04:08 Influenza A (H1) PCR Not detected (NOT DETECT) 05/15/24 04:08 Influ A (H1/09) PCR Not detected (NOT DETECT) 05/15/24 04:08 Influenza A (H3) PCR Not detected (NOT DETECT) 05/15/24 04:08 Influenza Type A (PCR) Not detected (NOT DETECT) 05/15/24 04:08 Influenza Type B (PCR) Not detected (NOT DETECT) 05/15/24 04:08 M. pneumoniae (PCR) Not detected (NOT DETECT) 05/15/24 04:08 Parainfluenza 1 (PCR) Not detected (NOT DETECT) 05/15/24 04:08 Parainfluenza 2 (PCR) Not detected (NOT DETECT) 05/15/24 04:08 Parainfluenza 3 (PCR) Not detected (NOT DETECT) 05/15/24 04:08 Parainfluenza 4 (PCR) Not detected (NOT DETECT) 05/15/24 04:08 RSV Type A (PCR) Not detected (NOT DETECT) 05/15/24 04:08 RSV Type B (PCR) Not detected (NOT DETECT) 05/15/24 04:08 Entero/Rhino (PCR) Not detected (NOT DETECT) 05/15/24 04:08 SARS-CoV-2 (PCR) Not detected (NOT DETECT) 05/15/24 04:08 Vitals Last Vital Signs Temp 98.2 F 05/16/24 12:11 Pulse 71 05/16/24 12:11 Resp 16 05/16/24 12:11 BP 135/69 05/16/24 12:11 Pulse Ox 93 05/16/24 11:39 O2 Del Method Nasal Cannula 05/16/24 11:39 O2 Flow Rate 2 05/16/24 11:27 Discharge Plan Discharge Patient Disposition: Home Condition: Stable Prescriptions: Continued (DME) DME - BIPAP See Rx Instructions .Route .MEDSUPPLY Qty: 1 0RF Rx Instructions: Inspiratory Pressure: 16mmHg Expiratory Pressure: 8 mmHg Will need oxygen bled in to the machine to maintain sats >/= 90%. (DME) DME - Oxygen See Rx Instructions .Route .MEDSUPPLY Qty: 1 0RF Rx Instructions: Supplemental Oxygen bled into BIPAP at 2-3L to maintain oxygen sats at >/= 90%. Auryxia 210 mg iron Tablet See Rx Instructions .ROUTE .COMPLEX Rx Instructions: 420 mg (2 tabs) orally three times a day and 210mg (1 tab) with snacks aspirin 81 mg tablet,delayed release (DR/EC) 81 mg PO QAM Patient Comments: pt takes qhs on wednesdays RenaPlex-D 800 mcg-12.5 mg -2,000 unit tablet 1 tab PO QAM carvedilol 25 mg tablet 37.5 mg PO Q12H atorvastatin 40 mg tablet 40 mg PO BEDTIME amlodipine 10 mg tablet 10 mg PO QAM hydralazine 100 mg tablet 100 mg PO Q8H cyclobenzaprine 10 mg tablet 10 mg PO BID PRN (Reason: Muscle Spasm) minoxidil 2.5 mg tablet 10 mg PO TID sevelamer carbonate 800 mg tablet 1,600 mg PO TID oxycodone 10 mg tablet 10 mg PO Q8H Referrals: Delio Salazar MD [Primary Care Provider] - 4-7 days Discharge Diet: Cardiac and Diabetic Discharge Activity: Resume usual activity Patient Instructions: Opioid Safety Discharge Attestations Status at Discharge: Cognitive status at discharge: cognitively intact , Behavioral status at discharge: cooperative , Coding Level of Care Code Acute Code for Chg Fwd Diagnoses End stage renal disease on dialysis N18.6; Z99.2
--- NOTE | 2024-05-16 13:44 | PC.NURSE ---
During paracentesis, after first bottle, BP 117/69. After second bottle, 102/55, after third bottle 93/56. Suction turned off and Dr. Merrill advised. Awaiting response.
--- NOTE | 2024-05-16 13:52 | PC.NURSE ---
Dr. Merrill texts back. Will order albumin. Stop paracentesis for now. Will reattempt tomorrow.
--- NOTE | 2024-05-16 13:54 | PM.PN ---
Subjective Subjective: Seen this morning. 3 L removed from dialysis this morning. Additional 3 L removed via paracentesis however patient became acutely hypotensive. He is dizzy and lethargic at this point. Albumin has been ordered. Normal saline bolus to 50 cc x 1 has been ordered as well. Vitals/I&O/Wt Last Vital Signs Temp 98.2 F 05/16/24 12:11 Pulse 71 05/16/24 12:11 Resp 16 05/16/24 12:11 BP 117/65 05/16/24 13:16 Pulse Ox 93 05/16/24 11:39 O2 Del Method Nasal Cannula 05/16/24 11:39 O2 Flow Rate 2 05/16/24 11:27 05/15/24 05/16/24 05/16/24 22:59 06:59 14:59 Intake Total 120 / 360 220 / 580 560 / 560 Output Total 6000 / 6000 Balance 120 / 360 220 / 580 -5440 / -5440 Weight last 48 hrs Weight 87.3 kg Weight 88.813 kg Weight 88.451 kg Weight 88.451 kg Weight 88.451 kg Physical Exam Narrative: Anasarca Currently on 2 L Pleasant and cooperative Nonfocal neuroexam GCS 15 S1, S2 Appears lethargic. No active shortness of breath Patient is in Semi-Sorto position 40 degrees Lower extremity significant swelling Data 05/16/24 05:37 05/16/24 08:10 A&P Assessment and plan (1) Noncompliance: (2) Adjustment disorder with mixed disturbance of emotions and conduct: (3) Uncontrolled hypertension: (4) Hernia, inguinal, right: (5) End-stage renal disease on hemodialysis: (6) Right hydrocele: (7) Respiratory failure with hypoxia: Qualifiers: Chronicity: acute on chronic Qualified Code(s): J96.21 - Acute and chronic respiratory failure with hypoxia Plan Hypoxia related to volume overload Anasarca End-stage renal disease Will need home oxygen evaluation before discharge Noncompliant Missed dialysis on Thursday secondary to increment weather I have placed a nephro consult Left voicemail to [facility] telemetry individualized education plan aide Will start patient on renal diet with fluid restriction Continue dual antiplatelet therapy Requested respiratory panel Patient is afebrile hemodynamically stable Resistant hypertension continue antihypertensive regimen Chronic right-sided hydrocele: No active testicular pain Full code DVT prophylaxis heparin Renal diet 05/16/2024 -Continue albumin 3 times daily x 4 doses total. ? Order normal saline to 50 cc bolus x 1. ? 3 L removed with dialysis, 3 L paracentesis. Patient is hypotensive and lethargic at this time. ? Will continue to monitor in the hospital. Will reattempt another paracentesis session in a.m. if patient is okay. Is okay. ? Continue to hospitalization patient today secondary to hypotension. Attestations Medical Necessity Statement*: Anticipating discharge within 24 hours Diagnoses Noncompliance Z91.199 Adjustment disorder with mixed disturbance of emotions and conduct F43.25 Uncontrolled hypertension I10 Hernia, inguinal, right K40.90 End-stage renal disease on hemodialysis N18.6; Z99.2 Right hydrocele N43.3 Respiratory failure with hypoxia J96.21 Chronicity: acute on chronic
[2024-05-16] MEDS: albumin 25 G/100 ML BAG 60 G IV ×2 (14:02→22:12)
[2024-05-16] MEDS: sodium chloride 0.9% 250 ML IV (14:02)
[2024-05-16] MEDS: ondansetron 2 mg/ML SDV 2 mL 4 MG IVP ×2 (15:05→22:37)
[2024-05-17] VITALS (10 sets, daily range): BP systolic 103–133; BP diastolic 43–78; PULSE 69–76; RESP 14–18; TEMP 36.4–37.6; O2SAT 93–97
[2024-05-17] MEDS: albumin 25 G/100 ML BAG 60 G IV (06:09)
[2024-05-17] MEDS: morphine 4 mg/mL SDV 1 mL 2 MG IVP (06:10)
[2024-05-17] MEDS: amlodipine 10 mg Tablet PO (06:11)
[2024-05-17] MEDS: b-complex-vitamin c Tablet 1 EACH PO (06:11)
[2024-05-17] MEDS: aspirin 81 mg EC Tablet PO (06:11)
[2024-05-17] MEDS: prasugrel 10 MG Tablet PO (06:11)
[2024-05-17] MEDS: isosorbide mononitrate ER 60 mg Tablet 240 MG PO (06:12)
[2024-05-17] MEDS: hyDRALAzine 50 mg Tablet PO (06:12)
[2024-05-17 06:13] LABS: Basophils # 0.1 10^3/uL (0.0-0.1); Basophils % 1.1 %; Eosinophils # 0.2 10^3/uL (0.0-0.8); Eosinophils % 3.4 %; Lymphocytes # 0.6 10^3/uL (0.8-4.8); Lymphocytes % 11.6 %; Mean Corpuscular HGB Conc 30.4 g/dL (30-55); Mean Corpuscular Hemoglobin 28.3 pg (27-33); Mean Platelet Volume 10.8 fL (7.4-10.4); Monocytes # 0.5 10^3/uL (0.2-0.9); Monocytes % 9.7 %; Nucleated Red Blood Cells % 0 %; Platelet Count 148 10^3/cmm (157-399); Red Blood Count 2.58 10^6/uL (3.85-5.65); Red Cell Distribution Width 16.8 % (12.1-15.1); White Blood Count 4.73 10^3/uL (3.29-11.43)
[2024-05-17 06:36] LABS: Anion Gap 13.2 (5-19); Blood Urea Nitrogen 26 mg/dL (6-20); Calcium 9.4 mg/dL (8.5-10.5); Carbon Dioxide 30 mmol/L (22-29); Chloride 97 mmol/L (98-107); Creatinine Clr Calc Pharmacy 18.3857; Glucose 78 mg/dL (65-115); Osmolality Calculated 284 mOsm/kg (285-295); Potassium 5.2 mmol/L (3.5-5.1); Sodium 135 mmol/L (136-145)
--- NOTE | 2024-05-17 08:40 | PM.PN ---
Subjective Subjective: was weak and lightheaded after paracentesis and dialysis yesterday Medications: Reviewed: Yes Medication Review Details: Current Medications Acetaminophen (Acetaminophen 500 Mg Tablet) 500 mg PO Q4H PRN PRN Reason: fever Albuterol/Ipratropium (Ipratropium-Albuterol 3 Ml Neb) 3 ml INHALATION Q6H PRN PRN Reason: SHORTNESS OF BREATH Amlodipine Besylate (Amlodipine 10 Mg Tablet) 5 mg PO [facility] Aspirin (Aspirin 81 Mg Ec Tablet) 81 mg PO [facility] Last Admin: 05/17/24 06:11 Dose: 81 mg Carvedilol (Carvedilol 25 Mg Tablet) 37.5 mg PO Q12H [facility] Last Admin: 05/16/24 22:10 Dose: 37.5 mg Heparin Sodium (Porcine) (Heparin 5,000 Unit/Ml Inj 1 Ml) 5,000 unit SUBCUT Q12H [facility] Last Admin: 05/15/24 09:32 Dose: Not Given Sodium Chloride (Sodium Chloride 0.9%) 1,000 mls @ 0 mls/hr IV .Q0M PRN PRN Reason: hypotension or symptomatic Albumin Human (Albumin) 12.5 gm in 50 mls @ 60 mls/hr IV PRN PRN PRN Reason: Hypotension and/or symptomatic Albumin Human (Albumin) 25 g in 100 mls @ 60 mls/hr IV Q8H [facility] Stop: 05/19/24 13:59 Last Admin: 05/17/24 06:09 Dose: 60 mls/hr Isosorbide Mononitrate (Isosorbide Mononitrate Er 60 Mg Tablet) 240 mg PO [facility] Last Admin: 05/17/24 06:12 Dose: 240 mg Morphine Sulfate (Morphine 4 Mg/Ml Sdv 1 Ml) 2 mg IVP Q4H PRN PRN Reason: SEVERE PAIN Last Admin: 05/17/24 06:10 Dose: 2 mg Multivitamins (H-Jpngnbz-Pcwqygn C Tablet) 1 each PO [facility] Last Admin: 05/17/24 06:11 Dose: 1 each Ondansetron HCl (Ondansetron 2 Mg/Ml Sdv 2 Ml) 4 mg IVP Q6H PRN PRN Reason: NAUSEA AND VOMITING Last Admin: 05/16/24 22:37 Dose: 4 mg Phenol (Phenol Oral Perry 177 Ml) 3 spray MUCOUS MEM Q2H PRN PRN Reason: SORE THROAT Last Admin: 05/16/24 03:35 Dose: 3 spray Prasugrel (Prasugrel 10 Mg Tablet) 10 mg PO QAM ART[facility] Last Admin: 05/17/24 06:11 Dose: 10 mg Sodium Chloride (Saline Nasal Perry 44ml Btl) 1 spray NASAL PRN PRN PRN Reason: DRYNESS Last Admin: 05/16/24 03:35 Dose: 1 spray Sodium Chloride (Sodium Chloride 0.9% 100 Ml Bag) 50 ml IV PRN PRN PRN Reason: Blood transfusion prime and flush Stop: 05/18/24 08:39 Vitals/I&O/Wt Last Vital Signs Temp 98.1 F 05/17/24 08:00 Pulse 76 05/17/24 08:00 Resp 16 05/17/24 08:00 BP 123/74 05/17/24 08:00 Pulse Ox 95 05/17/24 08:00 O2 Del Method Nasal Cannula 05/17/24 08:00 O2 Flow Rate 1.5 05/16/24 20:00 05/16/24 05/17/24 05/17/24 22:59 06:59 14:59 Intake Total 1470 / 2030 340 / 2370 Output Total 100 / 6100 Balance 1470 / -3970 240 / -3730 Weight last 48 hrs Weight 87.407 kg Weight 87.3 kg Weight 88.813 kg Physical Exam Narrative: comfortable in bed, NARD vs noted heent- nc/at, esther, anicteric neck supple lungs dull bases heart reg, +s1, s2 abdomen soft, nt, distended +BS ext no edema +LUE AVF w/ thrill and bruit neuro- a,a, o x 3 Data 05/17/24 05:28 05/17/24 05:28 A&P Assessment and plan (1) End stage renal disease on dialysis: 43 year old male with a past medical history of chronic renal failure on HD, current smoker, COPD, liver cirrhosis, requiring recurrent paracentesis, hypertension, hyperlipidemia, who presents [facility] due to increased shortness of breath increased abdominal distention, anasarca, after he missed dialysis 1. ESRD- HD yesterday. repeat HD today as k is 5.2 and he needs blood tx 2. anemia- monitor hgb. assess for bleed 3. BP well controlled- dec meds seen and examined using Audio-visual equipment with the aid of a nurse pt consented to hemodialysis and telehealth Plan HD and blood tx today Attestations Medical Necessity Statement*: anemia, hypotension Time Spent in Patient Care: 16 - 35 minutes (>than 50% of time spent in counselling and/or direct pt care on unit). Coding Level of Care Code Acute Code for Chg Fwd Diagnoses End stage renal disease on dialysis N18.6; Z99.2
--- NOTE | 2024-05-17 13:22 | PM.DCS ---
Discharge Providers Date of Admission: 05/15/24 03:45 Date of Discharge: May 17, 2024 Attending Provider at Admission: Emanuel Nation MD Attending Provider at Discharge: Brigitte Amin MD Primary Care Provider: Delio Salazar MD Diagnoses at Discharge Discharge Diagnosis (1) End stage renal disease on dialysis: Status: Acute Reason for Visit Reason for Visit: SOB Hospital Course Hospital Course Presented to the hospital for missed dialysis and abdominal pain. He has liver cirrhosis and large volume ascites. Typically gets paracentesis every Thursday. He was dialyzed in the hospital paracentesis was performed after which he became quite hypotensive. Albumin was given. Blood pressure was now stable. He was dialyzed on day of discharge. Appears well vitals are stable. He also required 1 unit of blood transfusion. Does have anemia of chronic disease. 1 unit of blood was given with dialysis. Denied any hematochezia hematemesis or hematuria. Discharged home in stable condition. Physical Exam Narrative: Anasarca Currently on 2 L Pleasant and cooperative Nonfocal neuroexam GCS 15 S1, S2 Laying in bed appearing comfortable at this time on dialysis. Awake alert and oriented. States he would like to go home after dialysis is complete. His mom will be coming to pick him up. No active shortness of breath Lower extremity significant swelling Discharge Data Studies Completed and Pending Completed Studies During Hospitalization Category Date Time Status XR chest 1V portable [id number] Stat Exams 05/15/24 01:51 Completed [place] abd w [id number] Routine Ultrasound 05/16/24 10:29 Completed Radiology Impressions Chest X-Ray 05/15/24 01:51 IMPRESSION: No acute abnormality. Stable cardiomegaly. Paracentesis Ultrasound 05/16/24 10:29 IMPRESSION: Uncomplicated paracentesis yielding 3000 ml of peritoneal fluid. Laboratory Results WBC 4.73 10^3/uL (3.29-11.43) 05/17/24 05:28 RBC 2.58 10^6/uL (3.85-5.65) L 05/17/24 05:28 Hgb 7.30 g/dL (11.27-16.99) L 05/17/24 05:28 Hct 24.0 % (37-53) L 05/17/24 05:28 MCV 93.0 fl (82-101) 05/17/24 05:28 MCH 28.3 pg (27-33) 05/17/24 05:28 MCHC 30.4 g/dL (30-55) 05/17/24 05:28 RDW 16.8 % (12.1-15.1) H 05/17/24 05:28 Plt Count 148 10^3/cmm (157-399) L 05/17/24 05:28 MPV 10.8 fL (7.4-10.4) H 05/17/24 05:28 Neut % (Auto) 74.0 % 05/17/24 05:28 Lymph % (Auto) 11.6 % 05/17/24 05:28 [place] % (Auto) 9.7 % 05/17/24 05:28 Eos % (Auto) 3.4 % 05/17/24 05:28 Baso % (Auto) 1.1 % 05/17/24 05:28 Neut # (Auto) 3.50 10^3/uL (1.8-7.7) 05/17/24 05:28 Lymph # (Auto) 0.6 10^3/uL (0.8-4.8) L 05/17/24 05:28 [place] # (Auto) 0.5 10^3/uL (0.2-0.9) 05/17/24 05:28 Eos # (Auto) 0.2 10^3/uL (0.0-0.8) 05/17/24 05:28 Baso # (Auto) 0.1 10^3/uL (0.0-0.1) 05/17/24 05:28 Nucleated RBC % (auto) 0 % 05/17/24 05:28 Nucleated RBCs # 0.0 /100WBC 05/17/24 05:28 PT 14.60 SECONDS (12.1-14.9) 05/16/24 05:37 INR 1.06 (0.8-1.2) 05/16/24 05:37 Sodium 135 mmol/L (136-145) L 05/17/24 05:28 Potassium 5.2 mmol/L (3.5-5.1) H 05/17/24 05:28 Chloride 97 mmol/L (98-107) L 05/17/24 05:28 Carbon Dioxide 30 mmol/L (22-29) H 05/17/24 05:28 Anion Gap 13.2 (5-19) 05/17/24 05:28 BUN 26 mg/dL (6-20) H 05/17/24 05:28 Creatinine 6.2 mg/dL (0.7-1.2) H* 05/17/24 05:28 GFR Calculation 10.0 mL/min (90-130) L 05/17/24 05:28 Glucose 78 mg/dL (65-115) 05/17/24 05:28 Calculated Osmolality 284 mOsm/kg (285-295) L 05/17/24 05:28 Lactic Acid 0.5 mmol/L (0.5-2.2) 05/15/24 03:21 Calcium 9.4 mg/dL (8.5-10.5) 05/17/24 05:28 Phosphorus 4.4 mg/dL (2.5-4.5) 05/15/24 00:30 Magnesium 2.0 mg/dL (1.7-2.3) 05/17/24 05:28 Iron Cancelled 05/16/24 08:10 TIBC Cancelled 05/16/24 08:10 % Saturation Cancelled 05/16/24 08:10 Unsat Iron Binding Cancelled 05/16/24 08:10 Ferritin Cancelled 05/16/24 08:10 Total Bilirubin 0.2 mg/dL (0.15-1.2) 05/15/24 00:30 AST 7 U/L (0-40) 05/15/24 00:30 ALT < 5 U/L (0-41) 05/15/24 00:30 Alkaline Phosphatase 93 U/L (40-130) 05/15/24 00:30 C-Reactive Protein 121.5 mg/L (0.0-4.9) H 05/15/24 00:30 Total Protein 6.6 g/dL (6.6-8.7) 05/15/24 00:30 Albumin 2.7 g/dL (3.5-5.2) L 05/15/24 00:30 Globulin 3.9 g/dL (1.3-4.6) 05/15/24 00:30 Adenovirus (PCR) Not detected (NOT DETECT) 05/15/24 04:08 C. pneumoniae DNA (PCR) Not detected (NOT DETECT) 05/15/24 04:08 Coronavirus 229E (PCR) Not detected (NOT DETECT) 05/15/24 04:08 Human Metapneumovir PCR Not detected (NOT DETECT) 05/15/24 04:08 Influenza A (H1) PCR Not detected (NOT DETECT) 05/15/24 04:08 Influ A (H1/09) PCR Not detected (NOT DETECT) 05/15/24 04:08 Influenza A (H3) PCR Not detected (NOT DETECT) 05/15/24 04:08 Influenza Type A (PCR) Not detected (NOT DETECT) 05/15/24 04:08 Influenza Type B (PCR) Not detected (NOT DETECT) 05/15/24 04:08 M. pneumoniae (PCR) Not detected (NOT DETECT) 05/15/24 04:08 Parainfluenza 1 (PCR) Not detected (NOT DETECT) 05/15/24 04:08 Parainfluenza 2 (PCR) Not detected (NOT DETECT) 05/15/24 04:08 Parainfluenza 3 (PCR) Not detected (NOT DETECT) 05/15/24 04:08 Parainfluenza 4 (PCR) Not detected (NOT DETECT) 05/15/24 04:08 RSV Type A (PCR) Not detected (NOT DETECT) 05/15/24 04:08 RSV Type B (PCR) Not detected (NOT DETECT) 05/15/24 04:08 Entero/Rhino (PCR) Not detected (NOT DETECT) 05/15/24 04:08 SARS-CoV-2 (PCR) Not detected (NOT DETECT) 05/15/24 04:08 Blood Type O Positive 05/17/24 09:11 Rho(D) Type Rh positive 05/17/24 09:11 Antibody Screen Negative 05/17/24 09:11 Crossmatch See Detail 05/17/24 09:11 Vitals Last Vital Signs Temp 97.6 F 05/17/24 12:00 Pulse 69 05/17/24 12:00 Resp 16 05/17/24 12:00 BP 124/78 05/17/24 12:00 Pulse Ox 97 05/17/24 12:00 O2 Del Method Nasal Cannula 05/17/24 12:00 O2 Flow Rate 2 05/17/24 10:00 Discharge Plan Discharge Patient Disposition: Home Condition: Stable Prescriptions: Continued (DME) DME - BIPAP See Rx Instructions .Route .MEDSUPPLY Qty: 1 0RF Rx Instructions: Inspiratory Pressure: 16mmHg Expiratory Pressure: 8 mmHg Will need oxygen bled in to the machine to maintain sats >/= 90%. (DME) DME - Oxygen See Rx Instructions .Route .MEDSUPPLY Qty: 1 0RF Rx Instructions: Supplemental Oxygen bled into BIPAP at 2-3L to maintain oxygen sats at >/= 90%. Auryxia 210 mg iron Tablet See Rx Instructions .ROUTE .COMPLEX Rx Instructions: 420 mg (2 tabs) orally three times a day and 210mg (1 tab) with snacks aspirin 81 mg tablet,delayed release (DR/EC) 81 mg PO QAM Patient Comments: pt takes qhs on wednesdays RenaPlex-D 800 mcg-12.5 mg -2,000 unit tablet 1 tab PO QAM carvedilol 25 mg tablet 37.5 mg PO Q12H atorvastatin 40 mg tablet 40 mg PO BEDTIME amlodipine 10 mg tablet 10 mg PO QAM hydralazine 100 mg tablet 100 mg PO Q8H cyclobenzaprine 10 mg tablet 10 mg PO BID PRN (Reason: Muscle Spasm) minoxidil 2.5 mg tablet 10 mg PO TID sevelamer carbonate 800 mg tablet 1,600 mg PO TID oxycodone 10 mg tablet 10 mg PO Q8H Discharge Orders: Discharge Order (Routine); Ordered 05/17/24 Ordered By: Brigitte Amin Other Ambulatory Orders: DME: Oxygen (Order) Location: None Selected Ordered By: Brigitte Amin Referrals: Delio Salazar MD [Primary Care Provider] - 05/23/24 1:30 pm Discharge Diet: Cardiac and Diabetic Discharge Activity: Resume usual activity Patient Instructions: Dialysis Nutrition Plan (GEN), Hemodialysis (GEN), Opioid Safety Discharge Attestations Time Spent in Discharge Care*: greater than 30 min Status at Discharge: Cognitive status at discharge: cognitively intact, Behavioral status at discharge: cooperative, Quality Metrics Clinical Quality Measures [ No reported AMI, CVA or VTE this stay] Coding Level of Care Code Acute Code for Chg Fwd Diagnoses End stage renal disease on dialysis N18.6; Z99.2
--- NOTE | 2024-05-17 13:27 | PC.HD ---
HD circuit clotted off with 7 min remaining of treatment. UF goal was 2000; removed 1834 (net).
== END 2024-05-17 15:00 | disposition home or self-care (01) ==
LOC: ER 03:45 → CSU 03:57 → MEDSURG 23:30
PROVIDERS: Student in an Organized Health Care Education/Training Program; Admitting Provider Internal Medicine; Emergency Provider Emergency Medicine; PCP Family Medicine; Visit Provider Internal Medicine
DX: I12.9 Hypertensive chronic kidney disease with stage 1 through stage 4 chronic kidney disease, or unspecified chronic kidney disease (principal); N18.6 End stage renal disease; Z99.2 Dependence on renal dialysis; D63.1 Anemia in chronic kidney disease; R18.8 Other ascites; Z91.199 Patient's noncompliance with other medical treatment and regimen due to unspecified reason; J96.21 Acute and chronic respiratory failure with hypoxia; F43.25 Adjustment disorder with mixed disturbance of emotions and conduct; N43.3 Hydrocele, unspecified; F17.210 Nicotine dependence, cigarettes, uncomplicated; Z95.5 Presence of coronary angioplasty implant and graft
CPT/HCPCS: 36415; 36430; 49083; 71045; 80048; 80053; 82728; 83540; 83550; 83605; 83735; 84100; 85025; 85610; 86140; 86850; 86900; 86920; 87486; 87581; 87633; 90935; 93005; 94760; 96372; 96374; 96375; 96376; 99285; G0378; J1644; J2270; J2405; J7050; P9016; P9046; Q3014

== ENCOUNTER 2024-05-30 11:50 | Day surgery (SDC) | payer MEDICARE, MEDICAID, SELFPAY ==
--- NOTE | 2024-05-30 11:56 | US_ITS ---
WS: [id number] ULTRASOUND-GUIDED THERAPEUTIC AND DIAGNOSTIC PARACENTESIS Procedure, risks, and complications have been explained to the patient. Consent is obtained. Utilizing aseptic technique and 1% buffered lidocaine, a small dermatome was made through which a 5 F rench Yueh catheter was inserted. Approximately 8000 ml of clear peritoneal fluid was obtained witho ut difficulty. No complications encountered. Specimen collected for analysis. US/US paracentesis abd w [id number] IMPRESSION: Uncomplicated paracentesis yielding 8000 ml of peritoneal fluid.
[2024-05-30 12:54] VITALS: BP 154/94; PULSE 67; RESP 20; TEMP 36.6; O2SAT 95
[2024-05-30] MEDS: albumin 50 G/200 ML BAG 60 G IV (13:01)
[2024-05-30 13:52] LABS: Appearance, Peritoneal Fluid Cloudy (Clear); Color, Peritoneal Fluid Yellow (Pale Yellow); Cyto Order Verification No Order
[2024-05-30 13:53] LABS: Mononuclear #, Pertinoneal Fl 0.192 10^3/uL; Polynuclear # Cells, Perit 0.015 10^3/uL; RBC Pertioneal Fluid 0 10^3/uL; WBC Peritoneal Fluid 207 /uL
[2024-05-30 14:18] LABS: Pathology Referral Yes
== END 2024-05-30 13:36 | disposition home or self-care (01) ==
PROVIDERS: Radiology Diagnostic Radiology; PCP Family Medicine; Visit Provider Internal Medicine
PROC: (CPT 49082; principal; 2024-05-30 12:30)
DX: K74.60 Unspecified cirrhosis of liver (principal)
CPT/HCPCS: 49083; 80503; 82042; 84157; 87075; 89050; 96365; P9046

== ENCOUNTER 2024-06-13 10:14 | Emergency (ER) | payer MEDICARE, MEDICAID, SELFPAY ==
[2024-06-13 10:30] VITALS: BP 174/93; PULSE 75; TEMP 36.8; O2SAT 95; BMI 25.7
--- NOTE | 2024-06-13 10:36 | ECG_ITS ---
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 Measurements Intervals [place] Rate: 75 P: 0 VA: 0 QRS: 96 QRSD: 119 T: 72 QT: 390 QTc: 436 Interpretive Statements possible sinus rhythm with PVCs BORDERLINE RIGHT AXIS DEVIATION [QRS AXIS > 90] LOW QRS VOLTAGE IN PRECORDIAL LEADS [QRS DEFLECTION < 1.0 mV IN CHEST LEADS] POSSIBLE ANTERIOR MYOCARDIAL INFARCTION , PROBABLY OLD [30 ms Q WAVE IN V3/V4, OR R < 0.2 mV IN V4] ABNORMAL RHYTHM ECG INTERPRETATION BASED ON A DEFAULT AGE OF 40 YEARS Compared to ECG 05/15/2024 03:15:35 Low QRS voltage now present.yocardial infarct finding now present ,Sinus rhythm no longer present. First degree AV block no longer present. Intraventricular conduction delay no longer present. T-wave abnormalit no longer present Possible ischemia no longer present Electronically Signed On 06-15-2024 18:10:47 MICROPHONE OPERATOR by Ruba Hussein M.D. [id number]
--- NOTE | 2024-06-13 10:50 | ECG_ITS ---
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 Measurements Intervals [place] Rate: 72 P: 206 ND: 117 QRS: 103 QRSD: 120 T: 95 QT: 437 QTc: 481 Interpretive Statements SINUS RHYTHM WITH first-degree AV block RIGHT AXIS DEVIATION [QRS AXIS > 100] PROBABLE LATERAL MYOCARDIAL INFARCTION , OF INDETERMINATE AGE [35 ms Q WAVE IN I/aVL/V5/V6] Compared to ECG 06/13/2024 10:36:06 Short ND interval now present Myocardial infarct finding still present Electronically Signed On 06-15-2024 18:08:24 PEST CONTROL TECHNICIAN by Ruba Hussein M.D. [id number]
--- NOTE | 2024-06-13 10:54 | XR_ITS ---
WS: [id number] PORTABLE CHEST HISTORY: sob COMPARISON: 05/15/2024 Mild interstitial edema has been present on prior studies. No focal mass or consolidation. No pleural effusion or pneumothorax. Cardiac size: Mildly enlarged cardiac silhouette. Mediastinum/Aorta: Mild atherosclerosis aorta. No osseous abnormality seen. XR/XR chest 1V portable [id number] IMPRESSION: 1. Minimal interstitial edema. No pneumonia. 2. Cardiomegaly, unchanged.
--- NOTE | 2024-06-13 10:55 | W.ED.SOB ---
HPI - SOB/Dyspnea General: Chief Complaint: Shortness of Breath/Dyspnea Stated Complaint: SOB Time Seen by Provider: 06/13/24 10:42 Source: patient Mode of arrival: EMS Limitations: no limitations History of Present Illness: HPI Narrative: Patient is a 43-year-old male who is well-known to our emergency department here complaining of shortness of breath. Patient has a history of end-stage renal disease receiving chronic dialysis on Tuesdays, , Saturdays. He did complete his dialysis on Thursday and is planning on completing dialysis tomorrow. He normally wears 3 L of oxygen. He has not had to increase this. He requires weekly paracenteses. He is actually scheduled for this procedure at 1130 today. Patient states over the past 2 weeks he has had cough and congestion with a few episodes of post-tussive vomiting. He has not been running fevers. MD elicited complaint: shortness of breath Pertinent past history: other (ESRD, liver cirrhosis ) Onset (ago): week(s) Timing: constant Severity: mild Associated symptoms: Reports abdominal pain, chest congestion, nausea and vomiting (post-tussive); Deny chest pain, dizziness or fever(s) Related Data Home Medications ?Medication ?Instructions ?Recorded ?Confirmed ferric citrate 210 mg iron tablet See Rx Instructions .Route .COMPLEX 11/03/21 06/13/24 (Auryxia) aspirin 81 mg tablet,delayed 81 mg PO QAM 02/21/22 06/13/24 release vit B,C-folic ac 800 mcg-zinc 12.5 1 tab PO QAM 10/01/22 06/13/24 mg-selen-D3 2,000 unit-vit E tablet (RenaPlex-D) atorvastatin 40 mg tablet 40 mg PO BEDTIME 01/09/23 06/13/24 carvedilol 25 mg tablet 37.5 mg PO Q12H 01/09/23 06/13/24 hydralazine 100 mg tablet 100 mg PO Q8H 01/09/23 06/13/24 cyclobenzaprine 10 mg tablet 10 mg PO BID PRN Muscle Spasm 10/15/23 06/13/24 minoxidil 2.5 mg tablet 10 mg PO TID 05/16/24 06/13/24 oxycodone 10 mg tablet 10 mg PO Q8H PRN Pain 05/16/24 06/13/24 sevelamer carbonate 800 mg tablet 1,600 mg PO TID 05/16/24 06/13/24 hydrocodone 5 mg-acetaminophen 325 1 tab PO Q4H PRN Pain 06/13/24 06/13/24 mg tablet ondansetron HCl 4 mg tablet 4 mg PO Q6H PRN Nausea And Vomiting 06/13/24 06/13/24 Previous Rx's ?Medication ?Instructions ?Recorded DME - BIPAP #1 ea 02/25/22 DME - Oxygen #1 ea 02/25/22 Allergies Allergy/AdvReac Type Severity Reaction Status Date / Time spironolactone Allergy Intermediate facial Verified 06/13/24 10:33 swelling haloperidol (From Haldol) Allergy ADR-Irritab Verified 06/13/24 10:33 le ketorolac Allergy Unknown Verified 06/13/24 10:33 lisinopril Allergy ADR-Swelling Verified 06/13/24 10:33 of the Eye nifedipine Allergy ALGY-Swell Verified 06/13/24 10:33 Lip/Tongue/Throat Review of Systems Const: Denies: fever(s), chills, body aches, fatigue or malaise Card: Denies: chest pain Resp: Reports: dyspnea, non-productive cough and chest congestion GI: Reports: abdominal pain, nausea and vomiting (post-tussive); Denies: diarrhea Neuro: Denies: headache(s) or dizziness [facility] ED PFSH: Medical History Acute and chronic respiratory failure with hypoxia Patient under care of multiple providers Hypertensive urgency History of cardiovascular stress test 07/2022 at [facility] perfusion imaging probably normal, no reversible defects, small fixed defect in apical anterior wall, EF 54%, nonischemic response to stress by EKG criteria Depression Epididymitis 06/2022 Pulmonary hypertension Uses bilevel positive airway pressure (BPAP) ventilation at home Umbilical hernia History of home oxygen therapy History of coronary angiogram 11/2021 - patent stent Inguinal hernia Anxiety Chronic respiratory failure on home oxygen and bipap Low back pain Nicotine dependence, cigarettes, with other nicotine-induced disorders Generalized anxiety disorder with panic attacks ESRD on dialysis Atherosclerosis of coronary artery Stent and balloon angioplasty to proximal 1 OM branch Chronic abdominal pain COVID 05/25 Hypertensive emergency recurrent episodes Urethral stricture Abdominal ascites history of intermittent paracentesis, transudative fluid; prior work up has included negative biopsy, ceruloplasmin level normal, low iron, high ferritin, normal TIBC, negative HIV, hepatitis panel negative, JESÚS/SCL 70/double-stranded DNA antibodies negative, Alpha-fetoprotein level unremarkable, nonalcoholic by history, has hepatomegaly and splenomegaly Pulmonary embolism 09/21 CTA inconclusive for very tiny peripheral LEFT lower lobe pulmonary artery sub segmental emboli versus poor opacification. Anemia chronic kidney disease Congestive heart failure preserved ejection fraction COPD (chronic obstructive pulmonary disease) Arteriovenous fistula for hemodialysis in place, secondary Degenerative disc disease, lumbar Hypertension uncontrolled Surgical History Stented coronary artery H/O hand surgery Amputation right 2&3 fingers 2017 History of adenoidectomy Family History Other Hypertension Social History Smoking and tobacco/nicotine status: current every day tobacco/nicotine user cigarettes Packs smoked per day: 1.5 Years cigarettes smoked: 21 [ Other cigarette details: started age 20, currently 0.5ppd ] Alcohol intake: never Substance/Drug Use: never Number of children: 3 Current occupational status: disabled Do you think of yourself as: Straight/Heterosexual Physical Exam Const: COMMON NORMALS: patient oriented x3, no limitations and alert GENERAL APPEARANCE: cooperative and appears older than stated age ORIENTATION/CONSCIOUSNESS: Yes awake, Yes oriented to person, Yes oriented to place and Yes oriented to time OTHER: chronically ill appearing Resp: COMMON NORMALS: normal respiratory effort and clear to auscultation bilaterally AUSCULTATION: clear to auscultation bilaterally OTHER: satting normal on his normal 3L Cardio: COMMON NORMALS: regular rate and regular rhythm RATE: regular rate RHYTHM: regular rhythm GI: OTHER: large volume ascities present Neuro: COMMON NORMALS: patient oriented x3 SENSORIUM/ORIENTATION: Yes alert, Yes oriented to person, Yes oriented to place and Yes oriented to time Course Vital Signs: Vital signs: Vital Signs Temperature 98.2 F 06/13/24 10:30 Pulse Rate 79 06/13/24 11:32 Respiratory Rate 18 06/13/24 11:32 Blood Pressure 189/113 06/13/24 11:32 Pulse Oximetry 98 06/13/24 11:32 Oxygen Delivery Me thod Nasal Cannula 06/13/24 11:19 Oxygen Flow Rate 3 06/13/24 11:19 MDM - SOB/Dyspnea Medical Decision Making Mal Gibbs is well-known to our emergency department here complaining of congestion, cough, and feeling short of breath. He is chronically on 3 L of oxygen. He has not had to increase this. Here he is satting at 98% on his normal 3 L. His CXR showing chronic findings. COVID/influenza/RSV swab was negative. He did attend his dialysis on Thursday and has plans to attend dialysis tomorrow. He is scheduled for a paracentesis here in our emergency department shortly. Ultimately this should help with his shortness of breath. From the emergency department, patient is cleared for discharge. He will be wheeled to outpatient surgery for his scheduled paracentesis appointment. Medical Records I reviewed the patient's medical records. Lab Data Labs/Radiology: Radiology Impressions Chest X-Ray 06/13/24 10:54 IMPRESSION: 1. Minimal interstitial edema. No pneumonia. 2. Cardiomegaly, unchanged. Laboratory Results Coronavirus (PCR) Negative (Negative) 06/13/24 10:54 Influenza A (PCR) Negative (Negative) 06/13/24 10:54 Influenza Type B (PCR) Negative (Negative) 06/13/24 10:54 RSV (PCR) Negative (Negative) 06/13/24 10:54 All radiology interpretation(s) finalized by discharge Discharge Plan Discharge Patient Disposition: Home Clinical Impression: End-stage renal disease needing dialysis Abdominal ascites Qualifiers: Ascites type: other type Qualified Code(s): R18.8 - Other ascites Condition: Stable Prescriptions: No Action (DME) DME - BIPAP See Rx Instructions .Route .MEDSUPPLY Qty: 1 0RF Rx Instructions: Inspiratory Pressure: 16mmHg Expiratory Pressure: 8 mmHg Will need oxygen bled in to the machine to maintain sats >/= 90%. (DME) DME - Oxygen See Rx Instructions .Route .MEDSUPPLY Qty: 1 0RF Rx Instructions: Supplemental Oxygen bled into BIPAP at 2-3L to maintain oxygen sats at >/= 90%. Auryxia 210 mg iron Tablet See Rx Instructions .ROUTE .COMPLEX Rx Instructions: Take 420 mg (2 tablets) by mouth three times a day and 210mg (1 tablet) with snacks. aspirin 81 mg tablet,delayed release (DR/EC) 81 mg PO QAM Patient Comments: pt takes qhs on wednesdays RenaPlex-D 800 mcg-12.5 mg -2,000 unit tablet 1 tab PO QAM carvedilol 25 mg tablet 37.5 mg PO Q12H atorvastatin 40 mg tablet 40 mg PO BEDTIME hydralazine 100 mg tablet 100 mg PO Q8H cyclobenzaprine 10 mg tablet 10 mg PO BID PRN (Reason: Muscle Spasm) minoxidil 2.5 mg tablet 10 mg PO TID sevelamer carbonate 800 mg tablet 1,600 mg PO TID oxycodone 10 mg tablet 10 mg PO Q8H PRN (Reason: Pain) hydrocodone-acetaminophen 5-325 mg tablet 1 tab PO Q4H PRN (Reason: Pain) ondansetron HCl 4 mg tablet 4 mg PO Q6H PRN (Reason: Nausea And Vomiting) Discharge Orders: Discharge ED (Routine); Ordered 06/13/24 Ordered By: Elizabeth Malave Referrals: Delio Salazar MD [Primary Care Provider] - Activity Restrictions/Additional Instructions: Please go straight to your paracentesis appointment that is currently scheduled at 1130. Print Language: Senegalese Coding Level of Care Code ED Dupligraph Operator for Cristi Diane
--- NOTE | 2024-06-13 11:12 | PC.PHAR ---
Pt states his sister-Amber takes care of him and his medications, he has no idea what he takes or when. Amber is does not answer when called. Verified medication list via pharmacies and last discharge med list on 05/17/24, along with last fill dates and day supply.
[2024-06-13 11:18] VITALS: RESP 16
[2024-06-13] MEDS: morphine 4 mg/mL SDV 1 mL IVP (11:18)
[2024-06-13] MEDS: ondansetron 2 mg/ML SDV 2 mL 4 MG IVP (11:18)
[2024-06-13 11:19] VITALS: BP 175/122; PULSE 71; RESP 18; O2SAT 98
[2024-06-13 11:32] VITALS: BP 189/113; PULSE 79; RESP 18; O2SAT 98
[2024-06-13 11:43] LABS: Covid PCR NEGATIVE (Negative); Influenza A NEGATIVE (Negative); Influenza B NEGATIVE (Negative); Respiratory Syncytial Virus Ce NEGATIVE (Negative)
== END 2024-06-13 11:28 | disposition home or self-care (01) ==
PROVIDERS: Emergency Provider Physician Assistant; PCP Family Medicine
DX: I13.2 Hypertensive heart and chronic kidney disease with heart failure and with stage 5 chronic kidney disease, or end stage renal disease (principal); N18.6 End stage renal disease; I50.9 Heart failure, unspecified; R18.8 Other ascites; Z99.2 Dependence on renal dialysis; Z99.81 Dependence on supplemental oxygen; J44.9 Chronic obstructive pulmonary disease, unspecified; Z11.52 Encounter for screening for COVID-19; Z79.82 Long term (current) use of aspirin; F17.210 Nicotine dependence, cigarettes, uncomplicated
CPT/HCPCS: 71045; 87637; 93005; 96374; 96375; 99285; J2270; J2405

== ENCOUNTER 2024-06-13 11:35 | Day surgery (SDC) | payer MEDICARE, MEDICAID, SELFPAY ==
[2024-06-13] VITALS (14 sets, daily range): BP systolic 163–207; BP diastolic 100–129; PULSE 72–111; RESP 18; TEMP 36.9; O2SAT 97
--- NOTE | 2024-06-13 11:47 | US_ITS ---
WS: [id number] ULTRASOUND-GUIDED THERAPEUTIC AND DIAGNOSTIC PARACENTESIS Procedure, risks, and complications have been explained to the patient. Consent is obtained. Utilizing aseptic technique and 1% buffered lidocaine, a small dermatome was made through which a 5 Cymraes Yueh catheter was inserted. Approximately 6800 ml of clear peritoneal fluid was obtained without difficulty. No complications encountered. Specimen collected for analysis. Patient is significant high blood pressure prior to beginning the paracentesis. Patient has not had his blood pressure medicine today. Patient was given IV blood pressure medicine this is documented. Patient will take his additional home medicines before he leaves. If blood pressure continues to increase patient will be sent to the emergency department. US/US paracentesis abd w [id number] IMPRESSION: Uncomplicated paracentesis yielding 6800 ml of peritoneal fluid.
--- NOTE | 2024-06-13 12:56 | PC.NURSE ---
SPOKE TO RADIOLOGIST HORACIO REGARDING PTS BP READING SINCE BEING IN GI. PT REPORTS NOT TAKING MEDICATIONS BEFORE COMING IN. WILL NOT GIVE ALBUMIN TODAY PER RADIOLOGIST BASED ON BP READINGS. PT WILL HAVE HIS MOTHER BRING HIS MEDICATIONS TO HIM WHEN HE IS PICKED UP SO THAT HE CAN TAKE HIS BLOOD PRESSURE MEDICATIONS.
[2024-06-13 13:06] LABS: Total Protein Body Fluid 3.9 g/dL
[2024-06-13] MEDS: hyDRALAzine 20 mg/mL INJ 1 mL 12.5 MG IVP ×2 (13:21→13:37)
--- NOTE | 2024-06-13 14:00 | PC.NURSE ---
1305-Called Dr Peter back about pts BP of 207/129 @1300 and 209/119 @1305. I asked about IV Hydralazine. She did not feel ok for him to go home with that high of a BP, but also did not feel that she should manage it. After discussing it, we agreed on giving Hydralazine 12.5mg and repeat in 15 min if BP still up to try to save pt from going to the ED again. Also, his mother is supposed to bring him his meds, as he has not had them this morning.
--- NOTE | 2024-06-13 14:15 | PC.NURSE ---
TRANSFERRING CARE TO BRYANT-JAGUAR, SHE HAS BEEN UPDATED AND INVOLVED WITH PT CARE. BP READINGS ENTERED IN WORKLIST FOLLOWING IV HYDRALAZINE. SPOKE WITH PT REGARDING BP READINGS STILL BEING ELEVATED, PT REPORTS HAVING ABDOMINAL PAIN THAT HE OFTEN HAS. IT WAS RECOMMENDED BY RADIOLOGIST THAT PT RETURN TO ER IF BP REMAINS ELEVATED- PT STATES THAT HE WANTS TO GO HOME, HE IS NOT WORRIED ABOUT HIS BP SINCE HE HAS SEEN IT HIGHER. RN ATTEMPTED EDUCATION REGARDING DANGERS OF ELEVATED BP DESPITE IV MEDICATIONS BEING GIVEN.
--- NOTE | 2024-06-13 15:14 | PC.NURSE ---
1512-Notified Dr Peter of pts last BP of 163/100 and that pts mom was there to pick him up. Pt to take his oral BP meds. We both thought that was appropriate as the pt did not want to go to the ED.
[2024-06-13 17:11] LABS: Cyto Order Verification Order Verified
== END 2024-06-13 15:15 | disposition home or self-care (01) ==
PROVIDERS: Radiology Diagnostic Radiology; PCP Family Medicine; Visit Provider Internal Medicine
PROC: (CPT 49082; principal; 2024-06-13 12:00)
DX: K74.60 Unspecified cirrhosis of liver (principal)
CPT/HCPCS: 49083; 82042; 84157; 87070; 87075; 87205; 88112; 88305; J0360

== ENCOUNTER 2024-06-24 01:33 | Emergency (ER) | payer MEDICARE, MEDICAID, SELFPAY ==
[2024-06-24 02:16] VITALS: BP 187/111; PULSE 97; RESP 20; TEMP 37.1; O2SAT 92
--- NOTE | 2024-06-24 02:22 | W.ED.ABDPA2 ---
HPI - Abdominal Pain General: Chief Complaint: Abdominal Pain Stated Complaint: stomach/ back pain . wheezing Time Seen by Provider: 06/24/24 02:15 History of Present Illness: Patient presents to the ER with complaints of worsening abdominal pain and overall malaise. Patient does have a protuberant abdomen. He said he is routine paracentesis within the next 1 coming up this Thursday in approximately 3 days. Patient denies any fevers or chills does see has nausea cough with congestion. Patient is on dialysis and went to dialysis yesterday. Related Data Home Medications ?Medication ?Instructions ?Recorded ?Confirmed ferric citrate 210 mg iron tablet See Rx Instructions .Route .COMPLEX 11/03/21 06/17/24 (Auryxia) aspirin 81 mg tablet,delayed 81 mg PO QAM 02/21/22 06/17/24 release vit B,C-folic ac 800 mcg-zinc 12.5 1 tab PO QAM 10/01/22 06/17/24 mg-selen-D3 2,000 unit-vit E tablet (RenaPlex-D) atorvastatin 40 mg tablet 40 mg PO BEDTIME 01/09/23 06/17/24 carvedilol 25 mg tablet 37.5 mg PO Q12H 01/09/23 06/17/24 hydralazine 100 mg tablet 100 mg PO Q8H 01/09/23 06/17/24 cyclobenzaprine 10 mg tablet 10 mg PO BID PRN Muscle Spasm 10/15/23 06/17/24 minoxidil 2.5 mg tablet 10 mg PO TID 05/16/24 06/17/24 oxycodone 10 mg tablet 10 mg PO Q8H PRN Pain 05/16/24 06/17/24 sevelamer carbonate 800 mg tablet 1,600 mg PO TID 05/16/24 06/17/24 hydrocodone 5 mg-acetaminophen 325 1 tab PO Q4H PRN Pain 06/13/24 06/17/24 mg tablet ondansetron HCl 4 mg tablet 4 mg PO Q6H PRN Nausea And Vomiting 06/13/24 06/17/24 Previous Rx's ?Medication ?Instructions ?Recorded DME - BIPAP #1 ea 02/25/22 DME - Oxygen #1 ea 02/25/22 Allergies Allergy/AdvReac Type Severity Reaction Status Date / Time spironolactone Allergy Intermediate facial Verified 02/14/25 13:00 swelling haloperidol (From Haldol) Allergy ADR-Irritab Verified 06/17/24 13:00 le ketorolac Allergy Unknown Verified 06/17/24 13:00 lisinopril Allergy ADR-Swelling Verified 06/17/24 13:00 of the Eye nifedipine Allergy ALGY-Swell Verified 06/17/24 13:00 Lip/Tongue/Throat Review of Systems General: Reports: 10 or more systems reviewed and unremarkable except in HPI and below PFSH ED PFSH: Medical History Acute and chronic respiratory failure with hypoxia Patient under care of multiple providers Hypertensive urgency History of cardiovascular stress test 07/2022 at [facility] perfusion imaging probably normal, no reversible defects, small fixed defect in apical anterior wall, EF 54%, nonischemic response to stress by EKG criteria Depression Epididymitis 06/2022 Pulmonary hypertension Uses bilevel positive airway pressure (BPAP) ventilation at home Umbilical hernia History of home oxygen therapy History of coronary angiogram 11/2021 - patent stent Inguinal hernia Anxiety Chronic respiratory failure on home oxygen and bipap Low back pain Nicotine dependence, cigarettes, with other nicotine-induced disorders Generalized anxiety disorder with panic attacks ESRD on dialysis Atherosclerosis of coronary artery Stent and balloon angioplasty to proximal 1 OM branch Chronic abdominal pain COVID 05/25 Hypertensive emergency recurrent episodes Urethral stricture Abdominal ascites history of intermittent paracentesis, transudative fluid; prior work up has included negative biopsy, ceruloplasmin level normal, low iron, high ferritin, normal TIBC, negative HIV, hepatitis panel negative, JESÚS/SCL 70/double-stranded DNA antibodies negative, Alpha-fetoprotein level unremarkable, nonalcoholic by history, has hepatomegaly and splenomegaly Pulmonary embolism 09/21 CTA inconclusive for very tiny peripheral LEFT lower lobe pulmonary artery sub segmental emboli versus poor opacification. Anemia chronic kidney disease Congestive heart failure preserved ejection fraction COPD (chronic obstructive pulmonary disease) Arteriovenous fistula for hemodialysis in place, secondary Degenerative disc disease, lumbar Hypertension uncontrolled Surgical History Stented coronary artery H/O hand surgery Amputation right 2&3 fingers 2017 History of adenoidectomy Family History Other Hypertension Social History Smoking and tobacco/nicotine status: current every day tobacco/nicotine user cigarettes Packs smoked per day: 1.5 Years cigarettes smoked: 21 [ Other cigarette details: started age 20, currently 0.5ppd ] Alcohol intake: never Substance/Drug Use: never Number of children: 3 Current occupational status: disabled Do you think of yourself as: Straight/Heterosexual Physical Exam Const: COMMON NORMALS: no acute distress, average body habitus, patient oriented x3, no limitations, healthy appearing, alert and well nourished HENMT: COMMON NORMALS: normocephalic, atraumatic, hearing grossly normal bilaterally, external ears normal, Normal external nose present, moist oral mucous membranes and oropharynx normal HEAD & SCALP: normocephalic and atraumatic NOSE: Normal external nose present EXTERNAL EAR: Yes external ears normal Neck/C-Spine: COMMON NORMALS: full ROM, no lymphadenopathy, supple, no meningeal signs, no JVD and Thyroid normal THYROID: Thyroid normal Chest: COMMONS NORMALS: normal inspection of the chest and normal palpation of entire chest wall Resp: COMMON NORMALS: normal respiratory effort, No retractions, No use of accessory muscles and clear to auscultation bilaterally AUSCULTATION: clear to auscultation bilaterally Cardio: COMMON NORMALS: no JVD, regular rate, regular rhythm, S1 normal heart sound present, S2 normal heart sound present, No gallops present (Cardio), No clicks present (Cardio), No murmurs present (Cardio) and No rub (Cardio) RATE: regular rate RHYTHM: regular rhythm HEART SOUNDS: S1 normal heart sound present and S2 normal heart sound present GI: OTHER: Soft protuberant mildly distended diffusely mildly tender, positive bowel sounds all 4 quadrants Neuro: COMMON NORMALS: patient oriented x3 SENSORIUM/ORIENTATION: Yes alert MENINGEAL SIGNS: Yes no meningeal signs Course Vital Signs: Vital signs: Vital Signs Temperature 98.7 F 06/24/24 02:16 Pulse Rate 103 H 06/24/24 02:30 Respiratory Rate 20 H 06/24/24 02:16 Blood Pressure 179/111 06/24/24 02:37 Pulse Oximetry 94 06/24/24 02:30 MDM - Abdominal Pain Medical Decision Making Lab work was reviewed which was stable for the patient. Chest x-ray showed cardiomegaly with central vascular prominence. Patient was given Zofran and Hixson. Patient is feeling much better. Patient wants to leave and will be discharged home. Medical Records I reviewed the patient's medical records. Lab Data I reviewed the patient's lab results. 06/24/24 02:50 06/24/24 02:50 Labs/Radiology: Radiology Impressions Chest X-Ray 06/24/24 02:25 IMPRESSION: Cardiomegaly with central vascular prominence Laboratory Results WBC 6.08 10^3/uL (3.29-11.43) 06/24/24 02:50 RBC 3.36 10^6/uL (3.85-5.65) L 06/24/24 02:50 Hgb 9.60 g/dL (11.27-16.99) L 06/24/24 02:50 Hct 30.1 % (37-53) L 06/24/24 02:50 MCV 89.6 fl (82-101) 06/24/24 02:50 MCH 28.6 pg (27-33) 06/24/24 02:50 MCHC 31.9 g/dL (30-55) 06/24/24 02:50 RDW 17.9 % (12.1-15.1) H 06/24/24 02:50 Plt Count 235 10^3/cmm (157-399) 06/24/24 02:50 MPV 9.4 fL (7.4-10.4) 06/24/24 02:50 Neut % (Auto) 73.5 % 06/24/24 02:50 Lymph % (Auto) 8.6 % 06/24/24 02:50 Cedar % (Auto) 8.7 % 06/24/24 02:50 Eos % (Auto) 7.7 % 06/24/24 02:50 Baso % (Auto) 1.2 % 06/24/24 02:50 Neut # (Auto) 4.47 10^3/uL (1.8-7.7) 06/24/24 02:50 Lymph # (Auto) 0.5 10^3/uL (0.8-4.8) L 06/24/24 02:50 Cedar # (Auto) 0.5 10^3/uL (0.2-0.9) 06/24/24 02:50 Eos # (Auto) 0.5 10^3/uL (0.0-0.8) 06/24/24 02:50 Baso # (Auto) 0.1 10^3/uL (0.0-0.1) 06/24/24 02:50 Nucleated RBC % (auto) 0 % 06/24/24 02:50 Nucleated RBCs # 0.0 /100WBC 06/24/24 02:50 Sodium 133 mmol/L (136-145) L 06/24/24 02:50 Potassium 4.3 mmol/L (3.5-5.1) 06/24/24 02:50 Chloride 93 mmol/L (98-107) L 06/24/24 02:50 Carbon Dioxide 28 mmol/L (22-29) 06/24/24 02:50 Anion Gap 16.3 (5-19) 06/24/24 02:50 BUN 23 mg/dL (6-20) H 06/24/24 02:50 Creatinine 3.9 mg/dL (0.7-1.2) H 06/24/24 02:50 GFR Calculation 17.1 mL/min (90-130) L 06/24/24 02:50 Glucose 101 mg/dL (65-115) 06/24/24 02:50 Calculated Osmolality 280 mOsm/kg (285-295) L 06/24/24 02:50 Calcium 10.3 mg/dL (8.5-10.5) 06/24/24 02:50 Phosphorus 5.1 mg/dL (2.5-4.5) H 06/24/24 02:50 Magnesium 1.9 mg/dL (1.7-2.3) 06/24/24 02:50 Total Bilirubin 0.3 mg/dL (0.15-1.2) 06/24/24 02:50 AST 15 U/L (0-40) 06/24/24 02:50 ALT 7 U/L (0-41) 06/24/24 02:50 Alkaline Phosphatase 138 U/L (40-130) H 06/24/24 02:50 Total Protein 6.7 g/dL (6.6-8.7) 06/24/24 02:50 Albumin 3.2 g/dL (3.5-5.2) L 06/24/24 02:50 Globulin 3.5 g/dL (1.3-4.6) 06/24/24 02:50 Lipase 20 U/L (13-60) 06/24/24 02:50 Influenza A (PCR) Negative (Negative) 06/24/24 02:40 Influenza Type B (PCR) Negative (Negative) 06/24/24 02:40 RSV (PCR) Negative (Negative) 06/24/24 02:40 SARS-CoV-2 (PCR) Negative (Negative) 06/24/24 02:40 All radiology interpretation(s) finalized by discharge Discharge Plan Discharge Patient Disposition: Home Clinical Impression: ESRD on dialysis Abdominal pain Qualifiers: Abdominal location: generalized Qualified Code(s): R10.84 - Generalized abdominal pain Condition: Stable Prescriptions: No Action (DME) DME - BIPAP See Rx Instructions .Route .MEDSUPPLY Qty: 1 0RF Rx Instructions: Inspiratory Pressure: 16mmHg Expiratory Pressure: 8 mmHg Will need oxygen bled in to the machine to maintain sats >/= 90%. (DME) DME - Oxygen See Rx Instructions .Route .MEDSUPPLY Qty: 1 0RF Rx Instructions: Supplemental Oxygen bled into BIPAP at 2-3L to maintain oxygen sats at >/= 90%. Auryxia 210 mg iron Tablet See Rx Instructions .ROUTE .COMPLEX Rx Instructions: Take 420 mg (2 tablets) by mouth three times a day and 210mg (1 tablet) with snacks. aspirin 81 mg tablet,delayed release (DR/EC) 81 mg PO QAM Patient Comments: pt takes qhs on wednesdays RenaPlex-D 800 mcg-12.5 mg -2,000 unit tablet 1 tab PO QAM carvedilol 25 mg tablet 37.5 mg PO Q12H atorvastatin 40 mg tablet 40 mg PO BEDTIME hydralazine 100 mg tablet 100 mg PO Q8H cyclobenzaprine 10 mg tablet 10 mg PO BID PRN (Reason: Muscle Spasm) minoxidil 2.5 mg tablet 10 mg PO TID sevelamer carbonate 800 mg tablet 1,600 mg PO TID oxycodone 10 mg tablet 10 mg PO Q8H PRN (Reason: Pain) hydrocodone-acetaminophen 5-325 mg tablet 1 tab PO Q4H PRN (Reason: Pain) ondansetron HCl 4 mg tablet 4 mg PO Q6H PRN (Reason: Nausea And Vomiting) Discharge Orders: Discharge ED (Routine); Ordered 06/24/24 Ordered By: Colton Child Referrals: Delio Salazar MD [Primary Care Provider] - 1 week Patient Instructions: Abdominal Pain (ED) Activity Restrictions/Additional Instructions: Activity restrictions/additional instructions: Thank you for choosing [facility] for your healthcare needs today. Please realize that you were seen in the emergency department and that we are providing you with an emergency medical screening exam and this may not be a complete and all exclusive of all testing and/or medical workup we may need to determine your element or severity of your illness. It is very important that you follow-up as instructed with your primary care provider or specialist for the additional evaluation and to discuss your medical treatment plan. You may return to the emergency department should you have concerns or if your condition changes or worsens in any way. Print Language: Nepali Coding Level of Care Code ED Cementer Machine Joiner for Cristi Diane
--- NOTE | 2024-06-24 02:25 | XRR_ITS ---
PROCEDURE INFORMATION: Exam: XR Chest Exam date and time: 06/24/2024 2:33 AM Age: 43 years old Clinical indication: Cough and shortness of breath; Smoker's cough; Additional info: Cough congestion TECHNIQUE: Imaging protocol: Radiologic exam of the chest. Views: 1 view. COMPARISON: CR (CHEST, ) 05/15/2024 1:58 AM FINDINGS: Lungs: Mild central vascular prominence . Lungs are free of consolidation. Pleural spaces: Unremarkable. No pleural effusion. No pneumothorax. Heart/Mediastinum: Stable cardiomegaly Bones/joints: Unremarkable. XR/XR chest 1V portable [id number] IMPRESSION: Cardiomegaly with central vascular prominence
[2024-06-24 02:30] VITALS: BP 125/65; PULSE 103; O2SAT 94
[2024-06-24 02:37] VITALS: BP 179/111
[2024-06-24] MEDS: cloNIDine 0.1 mg Tablet PO (02:37)
[2024-06-24 03:07] LABS: Basophils # 0.1 10^3/uL (0.0-0.1); Basophils % 1.2 %; Eosinophils # 0.5 10^3/uL (0.0-0.8); Eosinophils % 7.7 %; Hematocrit 30.1 % (37-53); Lymphocytes # 0.5 10^3/uL (0.8-4.8); Lymphocytes % 8.6 %; Mean Corpuscular HGB Conc 31.9 g/dL (30-55); Mean Corpuscular Hemoglobin 28.6 pg (27-33); Mean Corpuscular Volume 89.6 fl (82-101); Mean Platelet Volume 9.4 fL (7.4-10.4); Monocytes # 0.5 10^3/uL (0.2-0.9); Monocytes % 8.7 %; Neutrophils # 4.47 10^3/uL (1.8-7.7); Neutrophils % 73.5 %; Nucleated Red Blood Cells % 0 %; Platelet Count 235 10^3/cmm (157-399); Red Blood Count 3.36 10^6/uL (3.85-5.65); Red Cell Distribution Width 17.9 % (12.1-15.1); White Blood Count 6.08 10^3/uL (3.29-11.43)
[2024-06-24 03:22] LABS: Lipase 20 U/L (13-60); Magnesium 1.9 mg/dL (1.7-2.3); Phosphorus 5.1 mg/dL (2.5-4.5)
[2024-06-24 03:25] LABS: Influenza A NEGATIVE (Negative); Influenza B NEGATIVE (Negative); Respiratory Syncytial Virus Ce NEGATIVE (Negative); SARS-CoV-2 PCR NEGATIVE (Negative)
[2024-06-24] MEDS: HYDROcodone-acetaminophen 10-325 mg Tablet 1 TAB PO (04:07)
[2024-06-24] MEDS: ondansetron hcl ODT 4 mg Tab PO (04:07)
[2024-06-24 04:16] LABS: Alanine Aminotransferase 7 U/L (0-41); Albumin Level 3.2 g/dL (3.5-5.2); Alkaline Phosphatase 138 U/L (40-130); Anion Gap 16.3 (5-19); Aspartate Amino Transferase 15 U/L (0-40); Blood Urea Nitrogen 23 mg/dL (6-20); Calcium 10.3 mg/dL (8.5-10.5); Carbon Dioxide 28 mmol/L (22-29); Chloride 93 mmol/L (98-107); Globulin 3.5 g/dL (1.3-4.6); Glomerular Filtration Rate 17.1 mL/min (90-130); Glucose 101 mg/dL (65-115); Osmolality Calculated 280 mOsm/kg (285-295); Potassium 4.3 mmol/L (3.5-5.1); Sodium 133 mmol/L (136-145); Total Bilirubin 0.3 mg/dL (0.15-1.2); Total Protein 6.7 g/dL (6.6-8.7)
[2024-06-24 04:30] VITALS: BP 169/103; PULSE 84; RESP 16; O2SAT 97
[2024-06-24 04:48] VITALS: BP 189/125; PULSE 89; O2SAT 97
== END 2024-06-24 04:50 | disposition home or self-care (01) ==
PROVIDERS: Emergency Provider Emergency Medicine; PCP Family Medicine
DX: J44.9 Chronic obstructive pulmonary disease, unspecified (principal); I13.2 Hypertensive heart and chronic kidney disease with heart failure and with stage 5 chronic kidney disease, or end stage renal disease; N18.6 End stage renal disease; I50.9 Heart failure, unspecified; Z99.2 Dependence on renal dialysis; R10.84 Generalized abdominal pain; Z11.52 Encounter for screening for COVID-19; Z79.82 Long term (current) use of aspirin; F17.210 Nicotine dependence, cigarettes, uncomplicated; I25.10 Atherosclerotic heart disease of native coronary artery without angina pectoris
CPT/HCPCS: 71045; 80053; 83690; 83735; 84100; 85025; 87040; 87637; 99284; Q0162

== ENCOUNTER 2024-06-29 10:21 | Day surgery (SDC) | payer MEDICARE, MEDICAID, SELFPAY ==
--- NOTE | 2024-06-29 10:39 | US_ITS ---
WS: [id number] ULTRASOUND-GUIDED THERAPEUTIC AND DIAGNOSTIC PARACENTESIS Procedure, risks, and complications have been explained to the patient. Consent is obtained. Utilizing aseptic technique and 1% buffered lidocaine, a small dermatome was made through which a 5 Armenian Yueh catheter was inserted. Approximately 9500 ml of light yellow peritoneal fluid was obtained without difficulty. No complications encountered. Peritoneal fluid specimen collected for analysis as requested. US/US paracentesis abd w [id number] IMPRESSION: Uncomplicated paracentesis yielding 9500 ml of peritoneal fluid.
[2024-06-29 10:40] VITALS: BP 157/94; PULSE 78; RESP 20; TEMP 36.1; O2SAT 98; BMI 25.7
[2024-06-29] MEDS: albumin 50 G/200 ML BAG 60 G IV (11:41)
[2024-06-29 11:48] LABS: Mononuclear #, Pertinoneal Fl 0.198 10^3/uL; Polynuclear # Cells, Perit 0.009 10^3/uL; RBC Pertioneal Fluid 0 10^3/uL; WBC Peritoneal Fluid 207 /uL
[2024-06-29 12:01] LABS: Cyto Order Verification Order Verified
[2024-06-29 12:02] LABS: Appearance, Peritoneal Fluid Cloudy (Clear); Color, Peritoneal Fluid Pale Yellow (Pale Yellow); Pathology Referral Yes
== END 2024-06-29 12:23 | disposition home or self-care (01) ==
PROVIDERS: Radiology Diagnostic Radiology; PCP Family Medicine; Visit Provider Internal Medicine
PROC: (CPT 49082; principal; 2024-06-29 11:00)
DX: R18.8 Other ascites (principal)
CPT/HCPCS: 49083; 80503; 82042; 84157; 88112; 89050; 96365; P9046

== ENCOUNTER 2024-07-12 11:32 | Inpatient (IN) | payer MEDICARE, MEDICAID, SELFPAY ==
[2024-07-12] VITALS (11 sets, daily range): BP systolic 144–232; BP diastolic 88–131; PULSE 71–92; RESP 14–24; TEMP 36.8–37; O2SAT 95–99; BMI 22.4
--- NOTE | 2024-07-12 11:36 | XRR_ITS ---
PROCEDURE INFORMATION: Exam: XR Chest Exam date and time: 07/12/2024 11:58 AM Age: 43 years old Clinical indication: Other: Weakness TECHNIQUE: Imaging protocol: Radiologic exam of the chest. Views: 1 view. COMPARISON: CR (CHEST, ) 06/24/2024 2:33 AM FINDINGS: Lungs: Mild vascular congestion without definitive consolidations. Right lung calcified granuloma is benign. Pleural spaces: Unremarkable. No pleural effusion. No pneumothorax. Heart/Mediastinum: Stable moderate to severe cardiomegaly. Vasculature: Calcified aortic knob. Bones/joints: Unremarkable. XR/XR chest 1V portable [id number] IMPRESSION: Mild vascular congestion without definitive consolidations.
--- NOTE | 2024-07-12 11:37 | ECG_ITS ---
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 Measurements Intervals [place] Rate: 75 P: 105 TN: 257 QRS: 85 QRSD: 121 T: 66 QT: 373 QTc: 418 Interpretive Statements SINUS RHYTHM WITH FIRST DEGREE AV BLOCK MODERATE INTRAVENTRICULAR CONDUCTION DELAY [110+ ms QRS DURATION] MODERATE ST DEPRESSION [0.05+ mV ST DEPRESSION] Compared to ECG 06/13/2024 10:59:46 First degree AV block now present Intraventricular conduction delay now present ST (T wave) deviation now present Right-axis deviation no longer present Myocardial infarct finding no longer present Electronically Signed On 07-15-2024 19:15:36 CDT by Brijesh King M.D. [id number] [id number]
--- NOTE | 2024-07-12 11:47 | W.ED.WEAKNES ---
HPI - Weakness General: Chief complaint: Weakness Stated complaint: weakness Time Seen by Provider: 07/12/24 11:36 Source: patient Mode of arrival: ambulatory Limitations: no limitations History of Present Illness: 43-year-old male is very went on to ER for some multiple chronic diseases he has end-stage renal disease on dialysis he wears 3 L oxygen at baseline he states that he had a fistula revision and is missed his last 2 dialysis appointments. He states that he goes Thursday he states that he has been feeling weak and tired. He denies any fevers. PFSH ED PFSH: Medical History Acute and chronic respiratory failure with hypoxia Patient under care of multiple providers Hypertensive urgency History of cardiovascular stress test 07/2022 at [facility] perfusion imaging probably normal, no reversible defects, small fixed defect in apical anterior wall, EF 54%, nonischemic response to stress by EKG criteria Depression Epididymitis 06/2022 Pulmonary hypertension Uses bilevel positive airway pressure (BPAP) ventilation at home Umbilical hernia History of home oxygen therapy History of coronary angiogram 11/2021 - patent stent Inguinal hernia Anxiety Chronic respiratory failure on home oxygen and bipap Low back pain Nicotine dependence, cigarettes, with other nicotine-induced disorders Generalized anxiety disorder with panic attacks ESRD on dialysis Atherosclerosis of coronary artery Stent and balloon angioplasty to proximal 1 OM branch Chronic abdominal pain COVID 05/25 Hypertensive emergency recurrent episodes Urethral stricture Abdominal ascites history of intermittent paracentesis, transudative fluid; prior work up has included negative biopsy, ceruloplasmin level normal, low iron, high ferritin, normal TIBC, negative HIV, hepatitis panel negative, JESÚS/SCL 70/double-stranded DNA antibodies negative, Alpha-fetoprotein level unremarkable, nonalcoholic by history, has hepatomegaly and splenomegaly Pulmonary embolism 09/21 CTA inconclusive for very tiny peripheral LEFT lower lobe pulmonary artery sub segmental emboli versus poor opacification. Anemia chronic kidney disease Congestive heart failure preserved ejection fraction COPD (chronic obstructive pulmonary disease) Arteriovenous fistula for hemodialysis in place, secondary Degenerative disc disease, lumbar Hypertension uncontrolled Surgical History Stented coronary artery H/O hand surgery Amputation right 2&3 fingers 2017 History of adenoidectomy Family History Other Hypertension Social History Smoking and tobacco/nicotine status: current every day tobacco/nicotine user cigarettes Packs smoked per day: 1.5 Years cigarettes smoked: 21 [ Other cigarette details: started age 20, currently 0.5ppd ] Alcohol intake: never Substance/Drug Use: never Number of children: 3 Current occupational status: disabled Do you think of yourself as: Straight/Heterosexual Physical Exam Const: COMMON NORMALS: patient oriented x3 HENMT: COMMON NORMALS: normocephalic and atraumatic HEAD & SCALP: normocephalic and atraumatic Eye: COMMON NORMALS: Equal, round and reactive pupils present and EOMs intact bilaterally PUPIL: Yes Equal, round and reactive pupils present Neck/C-Spine: COMMON NORMALS: full ROM and supple Chest: COMMONS NORMALS: normal inspection of the chest and normal palpation of entire chest wall Resp: COMMON NORMALS: normal respiratory effort, No retractions, No use of accessory muscles and clear to auscultation bilaterally AUSCULTATION: clear to auscultation bilaterally Cardio: COMMON NORMALS: regular rate, regular rhythm and No murmurs present (Cardio) RATE: regular rate RHYTHM: regular rhythm GI: COMMON NORMALS: Normal to inspection, nondistended, normoactive bowel sounds present, Soft to palpation, non-tender and no masses PALPATION: Yes Soft to palpation Extremity: COMMON NORMALS: normal to inspection and full ROM Neuro: COMMON NORMALS: patient oriented x3, moves all extremities and no focal motor deficits Psych: COMMON NORMALS: mental status grossly normal, Normal thought process present and cooperative THOUGHT PROCESS: Normal thought process present Skin: COMMON NORMALS: no rashes or lesions noted and no wounds GENERAL SKIN EXAM: no rashes or lesions noted Course Vital Signs: Vital signs: Vital Signs Temperature 98.3 F 07/12/24 11:40 Pulse Rate 80 07/12/24 13:58 Respiratory Rate 22 H 07/12/24 13:58 Blood Pressure 187/102 07/12/24 13:58 Pulse Oximetry 95 07/12/24 13:58 Oxygen Delivery Me thod Nasal Cannula 07/12/24 13:58 Oxygen Flow Rate 3 07/12/24 13:58 MDM - Weakness Medical Decision Making Patient presents here with hyperkalemia due to missing dialysis he has no EKG changes did give him insulin D10 and calcium will admit for dialysis. Medical Records I reviewed the patient's medical records. Lab Data I reviewed the patient's lab results. 07/12/24 12:31 07/12/24 12:31 Radiology Impressions Chest X-Ray 07/12/24 11:36 IMPRESSION: Mild vascular congestion without definitive consolidations. Laboratory Results WBC 5.65 10^3/uL (3.29-11.43) 07/12/24 12:31 RBC 2.92 10^6/uL (3.85-5.65) L 07/12/24 12:31 Hgb 8.40 g/dL (11.27-16.99) L 07/12/24 12: Hct 26.9 % (37-53) L 07/12/24 12: MCV 92.1 fl (82-101) 07/12/24 12: MCH 28.8 pg (27-33) 07/12/24 12: MCHC 31.2 g/dL (30-55) 07/12/24 12: RDW 18.3 % (12.1-15.1) H 07/12/24 12:31 Plt Count 200 10^3/cmm (157-399) 07/12/24 12: MPV 10.1 fL (7.4-10.4) 07/12/24 12:31 Neut % (Auto) 76.2 % 07/12/24 12: Lymph % (Auto) 8.8 % 07/12/24 12:31 Union % (Auto) 11.2 % 07/12/24 12:31 Eos % (Auto) 1.1 % 07/12/24 12: Baso % (Auto) 0.2 % 07/12/24 12:31 Neut # (Auto) 4.31 10^3/uL (1.8-7.7) 07/12/24 12: Lymph # (Auto) 0.5 10^3/uL (0.8-4.8) L 07/12/24 12:31 Union # (Auto) 0.6 10^3/uL (0.2-0.9) 07/12/24 12:31 Eos # (Auto) 0.1 10^3/uL (0.0-0.8) 07/12/24 12:31 Baso # (Auto) 0.0 10^3/uL (0.0-0.1) 07/12/24 12:31 Nucleated RBC % (auto) 0.4 % 07/12/24 12:31 Nucleated RBCs # 0.0 /100WBC 07/12/24 12:31 PT 14.30 SECONDS (12.1-14.9) 07/12/24 12:31 INR 1.04 (0.8-1.2) 07/12/24 12:31 Sodium 130 mmol/L (136-145) L 07/12/24 12:31 Potassium 6.5 mmol/L (3.5-5.1) H* 07/12/24 12:31 Chloride 93 mmol/L (98-107) L 07/12/24 12:31 Carbon Dioxide 22 mmol/L (22-29) 07/12/24 12:31 Anion Gap 21.5 (5-19) H 07/12/24 12:31 BUN 71 mg/dL (6-20) H 07/12/24 12:31 Creatinine 8.4 mg/dL (0.7-1.2) H* 07/12/24 12:31 GFR Calculation 7.1 mL/min (90-130) L 07/12/24 12:31 Glucose 82 mg/dL (65-115) 07/12/24 12:31 POC Glucose 93 mg/dL (70-110) 07/12/24 13:58 Calculated Osmolality 290 mOsm/kg (285-295) 07/12/24 12:31 Calcium 10.0 mg/dL (8.5-10.5) 07/12/24 12:31 Total Bilirubin 0.2 mg/dL (0.15-1.2) 07/12/24 12:31 AST 14 U/L (0-40) 07/12/24 12:31 ALT < 5 U/L (0-41) 07/12/24 12:31 Alkaline Phosphatase 96 U/L (40-130) 07/12/24 12:31 Total Protein 6.3 g/dL (6.6-8.7) L 07/12/24 12:31 Albumin 2.9 g/dL (3.5-5.2) L 07/12/24 12:31 Globulin 3.4 g/dL (1.3-4.6) 07/12/24 12:31 All radiology interpretation(s) finalized by discharge EKG Data EKG 1: I personally reviewed and interpreted this EKG as follows: EKG interpretation date: 07/12/24 EKG interpretation time: 11:38 Interpretation: nsr hgr [address] elevation qrs 121 qtc 402 Discharge Plan Discharge Patient Disposition: Admitted As Inpatient Clinical Impression: End stage renal disease on dialysis, Acute hyperkalemia Condition: Stable Prescriptions: No Action Auryxia 210 mg iron Tablet See Rx Instructions .ROUTE .COMPLEX Rx Instructions: Take 420 mg (2 tablets) by mouth three times a day and 210mg (1 tablet) with snacks. aspirin 81 mg tablet,delayed release (DR/EC) 81 mg PO QAM Patient Comments: pt takes qhs on wednesdays RenaPlex-D 800 mcg-12.5 mg -2,000 unit tablet 1 tab PO QAM carvedilol 25 mg tablet 37.5 mg PO Q12H atorvastatin 40 mg tablet 40 mg PO BEDTIME hydralazine 100 mg tablet 100 mg PO Q8H minoxidil 2.5 mg tablet 10 mg PO TID sevelamer carbonate 800 mg tablet 1,600 mg PO TID Referrals: Delio Salazar MD [Primary Care Provider] - Print Language: Somali Coding Level of Care Code ED Mathematics Department Chair for Chg Fwd Related Data Home Medications ?Medication ?Instructions ?Recorded ?Confirmed ferric citrate 210 mg iron tablet See Rx Instructions .Route .COMPLEX 11/03/21 07/12/24 (Auryxia) aspirin 81 mg tablet,delayed 81 mg PO QAM 02/21/22 07/12/24 release vit B,C-folic ac 800 mcg-zinc 12.5 1 tab PO QAM 10/01/22 07/12/24 mg-selen-D3 2,000 unit-vit E tablet (RenaPlex-D) atorvastatin 40 mg tablet 40 mg PO BEDTIME 01/09/23 07/12/24 carvedilol 25 mg tablet 37.5 mg PO Q12H 01/09/23 07/12/24 hydralazine 100 mg tablet 100 mg PO Q8H 01/09/23 07/12/24 minoxidil 2.5 mg tablet 10 mg PO TID 05/16/24 07/12/24 sevelamer carbonate 800 mg tablet 1,600 mg PO TID 05/16/24 07/12/24 Allergies Allergy/AdvReac Type Severity Reaction Status Date / Time spironolactone Allergy Intermediate facial Verified 06/27/24 12:55 swelling haloperidol (From Haldol) Allergy ADR-Irritab Verified 06/27/24 12:55 le ketorolac Allergy Unknown Verified 06/27/24 12:55 lisinopril Allergy ADR-Swelling Verified 06/27/24 12:55 of the Eye nifedipine Allergy ALGY-Swell Verified 06/27/24 12:55 Lip/Tongue/Throat
--- NOTE | 2024-07-12 12:37 | PC.NURSE ---
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 PROVIDER NOTIFIED.
[2024-07-12 12:57] LABS: Basophils % 0.2 %; Eosinophils # 0.1 10^3/uL (0.0-0.8); Eosinophils % 1.1 %; Hematocrit 26.9 % (37-53); Lymphocytes # 0.5 10^3/uL (0.8-4.8); Lymphocytes % 8.8 %; Mean Corpuscular HGB Conc 31.2 g/dL (30-55); Mean Corpuscular Hemoglobin 28.8 pg (27-33); Mean Corpuscular Volume 92.1 fl (82-101); Mean Platelet Volume 10.1 fL (7.4-10.4); Monocytes # 0.6 10^3/uL (0.2-0.9); Monocytes % 11.2 %; Neutrophils # 4.31 10^3/uL (1.8-7.7); Neutrophils % 76.2 %; Nucleated Red Blood Cells % 0.4 %; Platelet Count 200 10^3/cmm (157-399); Red Blood Count 2.92 10^6/uL (3.85-5.65); Red Cell Distribution Width 18.3 % (12.1-15.1); White Blood Count 5.65 10^3/uL (3.29-11.43)
[2024-07-12] MEDS: albuterol 2.5 mg/3 mL Neb INHALATION (13:06)
[2024-07-12 13:12] LABS: INR 1.04 (0.8-1.2)
[2024-07-12 13:15] LABS: Alanine Aminotransferase < 5 U/L (0-41); Albumin Level 2.9 g/dL (3.5-5.2); Alkaline Phosphatase 96 U/L (40-130); Anion Gap 21.5 (5-19); Aspartate Amino Transferase 14 U/L (0-40); Blood Urea Nitrogen 71 mg/dL (6-20); Carbon Dioxide 22 mmol/L (22-29); Chloride 93 mmol/L (98-107); Creatinine Clr Calc Pharmacy 12.8963; Globulin 3.4 g/dL (1.3-4.6); Glomerular Filtration Rate 7.1 mL/min (90-130); Glucose 82 mg/dL (65-115); Osmolality Calculated 290 mOsm/kg (285-295); Sodium 130 mmol/L (136-145); Total Bilirubin 0.2 mg/dL (0.15-1.2); Total Protein 6.3 g/dL (6.6-8.7)
[2024-07-12 13:16] LABS: Potassium 6.5 mmol/L (3.5-5.1)
[2024-07-12] MEDS: calcium gluconate 0.1 gm/mL 10% SDV 10mL 1 GM IVP (13:55)
[2024-07-12] MEDS: insulin regular-human 100 units/1 mL 10 UNIT IVP (13:55)
[2024-07-12 14:01] LABS: Glucose Point of Care 93 mg/dL (70-110)
[2024-07-12] MEDS: dextrose 10% 250 ML 1000 ML IV ×2 (14:20→15:20)
--- NOTE | 2024-07-12 14:39 | PM.HP ---
Providers/Chief Complaint Admitting Physician: Anya Vargas MD Primary Care Provider: Delio Salazar MD Chief Complaint: weakness History of Present Illness Mal Gibbs is a 43 year old male with a history of end-stage renal disease on hemodialysis, liver cirrhosis with recurrent paracentesis, hypertension, hyperlipidemia, atherosclerotic heart disease who presented to the emergency room with chief complaint of weakness and not being able to get out of bed. He is not able to tell me when he last went to hemodialysis. Reports that his usual schedule is Tuesdays and Saturdays. Did not go today and did not go on Thursday and may not have gone on of last week but it is not clear at this point. He says he did have a procedure on his left upper extremity fistula on Thursday in [place], [facility]. Indicates this is why he missed his dialysis appointments. He says he had paracentesis Thursday as well but records here indicate his last paracentesis was on June 29 when he had 9.5 L removed. I do not have records from [place] however available to review. He has an appointment scheduled in our GI lab on July 18. Remains on home oxygen at 3 L by nasal cannula. No fever. General malaise. Describes hurting all over. Feels like he needs another paracentesis. He came in via EMS. Blood pressures 180s over 120s which is not unusual for him when he presents having missed dialysis. Workup showed potassium of 6.5. EKG with sinus rhythm and some nonspecific ST segment changes that have varied over time on review of several EKGs dating back to about a year ago. Given missed dialysis, anasarca, current blood pressures and chronic medical conditions is being admitted for emergent care. Has frequent admissions after missing dialysis and/or paracentesis. He has not had his usual home medications today. In the emergency room he received insulin and D10 x 2, calcium gluconate and albuterol. Review of Systems General: Reports: Other (ROS as per HPI or as otherwise noted here) Const: Reports: malaise; Denies: fever(s) Card: Denies: chest pain Resp: Reports: dyspnea GI: Reports: abdominal pain; Denies: diarrhea : Reports: other (no longer makes urine) Musc: Reports: other (Complains of some pain in the left fistula area) Skin/Breast: Reports: other (Dressing left fistula area intact) Neuro: Reports: other (Generalized weakness) Jefferson/Lymph: Reports: easy bruising; Denies: easy bleeding Medications/Allergies Home Medications ?Medication ?Instructions ?Recorded ?Confirmed ?Last Taken ?Type ferric citrate 210 mg iron tablet See Rx Instructions .Route .COMPLEX 11/03/21 07/12/24 06/28/24 History (Auryxia) aspirin 81 mg tablet,delayed 81 mg PO QAM 02/21/22 07/12/24 06/28/24 History release vit B,C-folic ac 800 mcg-zinc 12.5 1 tab PO QAM 10/01/22 07/12/24 06/28/24 History mg-selen-D3 2,000 unit-vit E tablet (RenaPlex-D) atorvastatin 40 mg tablet 40 mg PO BEDTIME 01/09/23 07/12/24 06/28/24 History carvedilol 25 mg tablet 37.5 mg PO Q12H 01/09/23 07/12/24 06/28/24 History hydralazine 100 mg tablet 100 mg PO Q8H 01/09/23 07/12/24 06/28/24 History minoxidil 2.5 mg tablet 10 mg PO TID 05/16/24 07/12/24 06/28/24 History sevelamer carbonate 800 mg tablet 1,600 mg PO TID 05/16/24 07/12/24 06/28/24 History Allergies Allergy/AdvReac Type Severity Reaction Status Date / Time spironolactone Allergy Intermediate facial Verified 06/27/24 12:55 swelling haloperidol (From Haldol) Allergy ADR-Irritab Verified 06/27/24 12:55 le ketorolac Allergy Unknown Verified 06/27/24 12:55 lisinopril Allergy ADR-Swelling Verified 06/27/24 12:55 of the Eye nifedipine Allergy ALGY-Swell Verified 06/27/24 12:55 Lip/Tongue/Throat PFSH Acute PFSH: Medical History (Updated 07/12/24 @ 16:06 by Anya Vargas MD) Dyslipidemia History of home oxygen therapy COPD (chronic obstructive pulmonary disease) Patient under care of multiple providers Umbilical hernia Atherosclerosis of coronary artery Stent and balloon angioplasty to proximal 1 OM branch Abdominal ascites history of intermittent paracentesis, transudative fluid; prior work up has included negative biopsy, ceruloplasmin level normal, low iron, high ferritin, normal TIBC, negative HIV, hepatitis panel negative, JESÚS/SCL 70/double-stranded DNA antibodies negative, Alpha-fetoprotein level unremarkable, nonalcoholic by history, has hepatomegaly and splenomegaly Congestive heart failure preserved ejection fraction History of cardiovascular stress test 07/2022 at [facility] perfusion imaging probably normal, no reversible defects, small fixed defect in apical anterior wall, EF 54%, nonischemic response to stress by EKG criteria Depression Epididymitis 06/2022 Pulmonary hypertension Uses bilevel positive airway pressure (BPAP) ventilation at home History of coronary angiogram 11/2021 - patent stent Inguinal hernia Chronic respiratory failure on home oxygen and bipap Nicotine dependence, cigarettes, with other nicotine-induced disorders Generalized anxiety disorder with panic attacks ESRD on dialysis Chronic abdominal pain COVID 05/25 Hypertensive emergency recurrent episodes Urethral stricture Pulmonary embolism 09/21 CTA inconclusive for very tiny peripheral LEFT lower lobe pulmonary artery sub segmental emboli versus poor opacification. Anemia chronic kidney disease Arteriovenous fistula for hemodialysis in place, secondary Degenerative disc disease, lumbar Hypertension uncontrolled Surgical History (Updated 07/12/24 @ 15:22 by Anya Vargas MD) History of arteriovenous graft left upper extremity fistula, revision 07/2024 in [place] Stented coronary artery H/O hand surgery Amputation right 2&3 fingers 2017 History of adenoidectomy Family History Other Hypertension Social History Smoking and tobacco/nicotine status: current every day tobacco/nicotine user cigarettes Packs smoked per day: 1.5 Years cigarettes smoked: 21 [ Other cigarette details: started age 20, currently 0.5ppd ] Alcohol intake: never Substance/Drug Use: never Number of children: 3 Current occupational status: disabled Do you think of yourself as: Straight/Heterosexual Vitals/I&O/Wt Last Vital Signs Temp 98.3 F 07/12/24 11:40 Pulse 80 07/12/24 13:58 Resp 22 H 07/12/24 13:58 BP 187/102 07/12/24 13:58 Pulse Ox 95 07/12/24 13:58 O2 Del Method Nasal Cannula 07/12/24 13:58 O2 Flow Rate 3 07/12/24 13:58 Weight last 48 hrs Weight 77.111 kg Physical Exam Narrative: Patient is asleep but easily arousable. Looks chronically ill. Extraocular movements are intact. Oral mucosa is dry. Neck is supple. Lungs are clear to auscultation anteriorly but decreased at both bases. Currently lying in a left lateral decubitus position with decreased left-sided respirations. Cardiovascular exam reveals a regular rate and rhythm, heart sounds are distant. Jugular venous distention is noted. Abdomen is soft though distended with fluid wave. Umbilical hernia noted and reducible. Some tenderness throughout but no guarding or rebound. Extremities with 4+ pitting edema. Left upper extremity with Reece wrap in place that I removed. Dressing underneath that is a postsurgical dressing is clean dry and intact. Able to wiggle fingers. Positive thrill noted to left upper extremity fistula. Extending from the dressed area there are no obvious signs of cellulitic changes those small bruises are noted and areas not unexpected after intervention. Speech is clear. Face is symmetric. Cooperative. Data 07/12/24 12:31 07/12/24 12:31 Other Labs: Radiology Impressions Chest X-Ray 07/12/24 11:36 IMPRESSION: Mild vascular congestion without definitive consolidations. Laboratory Results WBC 5.65 10^3/uL (3.29-11.43) 07/12/24 12:31 RBC 2.92 10^6/uL (3.85-5.65) L 07/12/24 12:31 Hgb 8.40 g/dL (11.27-16.99) L 07/12/24 12:31 Hct 26.9 % (37-53) L 07/12/24 12:31 MCV 92.1 fl (82-101) 07/12/24 12:31 MCH 28.8 pg (27-33) 07/12/24 12: MCHC 31.2 g/dL (30-55) 07/12/24 12: RDW 18.3 % (12.1-15.1) H 07/12/24 12:31 Plt Count 200 10^3/cmm (157-399) 07/12/24 12: MPV 10.1 fL (7.4-10.4) 07/12/24 12: Neut % (Auto) 76.2 % 07/12/24 12: Lymph % (Auto) 8.8 % 07/12/24 12:31 Evans % (Auto) 11.2 % 07/12/24 12: Eos % (Auto) 1.1 % 07/12/24 12:31 Baso % (Auto) 0.2 % 07/12/24 12:31 Neut # (Auto) 4.31 10^3/uL (1.8-7.7) 07/12/24 12: Lymph # (Auto) 0.5 10^3/uL (0.8-4.8) L 07/12/24 12: Evans # (Auto) 0.6 10^3/uL (0.2-0.9) 07/12/24 12: Eos # (Auto) 0.1 10^3/uL (0.0-0.8) 07/12/24 12: Baso # (Auto) 0.0 10^3/uL (0.0-0.1) 07/12/24 12: Nucleated RBC % (auto) 0.4 % 07/12/24 12: Nucleated RBCs # 0.0 /100WBC 07/12/24 12: PT 14.30 SECONDS (12.1-14.9) 07/12/24 12: INR 1.04 (0.8-1.2) 07/12/24 12:31 Sodium 130 mmol/L (136-145) L 07/12/24 12:31 Potassium 6.5 mmol/L (3.5-5.1) H* 07/12/24 12: Chloride 93 mmol/L (98-107) L 07/12/24 12:31 Carbon Dioxide 22 mmol/L (22-29) 07/12/24 12:31 Anion Gap 21.5 (5-19) H 07/12/24 12:31 BUN 71 mg/dL (6-20) H 07/12/24 12:31 Creatinine 8.4 mg/dL (0.7-1.2) H* 07/12/24 12:31 GFR Calculation 7.1 mL/min (90-130) L 07/12/24 12:31 Glucose 82 mg/dL (65-115) 07/12/24 12:31 POC Glucose 65 mg/dL (70-110) L 07/12/24 15:00 Calculated Osmolality 290 mOsm/kg (285-295) 07/12/24 12:31 Calcium 10.0 mg/dL (8.5-10.5) 07/12/24 12:31 Total Bilirubin 0.2 mg/dL (0.15-1.2) 07/12/24 12: AST 14 U/L (0-40) 07/12/24 12: ALT < 5 U/L (0-41) 07/12/24 12:31 Alkaline Phosphatase 96 U/L (40-130) 07/12/24 12: Total Protein 6.3 g/dL (6.6-8.7) L 07/12/24 12: Albumin 2.9 g/dL (3.5-5.2) L 07/12/24 12: Globulin 3.4 g/dL (1.3-4.6) 07/12/24 12:31 A&P Assessment and plan (1) Acute hyperkalemia: Related to missing hemodialysis times at least 2 sessions. No acute EKG changes. Does have associated weakness, malaise, shortness of breath and increased anasarca as expected in somebody who has missed a few dialysis sessions. - Hemodialysis in the acute care setting (2) Anasarca associated with disorder of kidney: Recurrent ascites/anasarca. Scheduled for regular paracentesis in the outpatient setting once a week. Last paracentesis here was on June 29. Reports that he had paracentesis last Thursday in [place] but I do not have records available. On examination has evidence of ascites with distention though not yet tense ascites. Currently without evidence of SBP with normal white count, mild pain on palpation, particularly reduction of umbilical hernia but no rebound or guarding, no fevers. - Will order ultrasound-guided paracentesis though anticipate it will not be able to be done until morning given need for hemodialysis this afternoon and time of day. If not able to do timely he does have an outpatient appointment scheduled for July 18 but I am not certain he will be able to wait that long before paracentesis is needed based on today's examination. (3) End stage renal disease on dialysis: Missed at least 2 episodes of dialysis. Potassium is at 6.5. No acute EKG changes. Has received pharmacological treatment in the emergency room. - Nephrology consulted for dialysis, discussed with Dr. Griffith - Patient's usual Auryxia and RenaPlex are nonformulary but I have continued Renvela (4) Noncompliance: Attributes noncompliance with dialysis and medication regimen to fistula revision last Thursday - Reviewed with patient that utilizing acute care services for chronic care needs is not optimal management as it exacerbates his chronic conditions and depletes his reserves. He does have issues with transportation previously documented and ongoing. And appears some confusion as to wether or not he can use his fistula for hemodialysis after revision. (5) Hypertensive urgency: In a patient who has not taken his usual medications today and has known severe hypertension, worse when he misses dialysis. - Continue home carvedilol and minoxidil - Monitor need for additional medication management (6) History of arteriovenous graft: Status post reported revision last Thursday in [place]. Dressing is clean dry and intact underneath Reece wrap with thrill noted. - Aware of recent intervention - Looks to have had 4-day supply of narcotics prescribed on July 09 I am presuming due to pain from fistula revision based on available information - At this point Tylenol with a max of 2 g/day ordered for pain control - Hemodialysis nurse confirmed with vascular surgeon that it is okay to use the fistula if accessed above where the revision/dressings are (7) Atherosclerosis of coronary artery: On chronic aspirin therapy, beta-blockade and statin. No reports of chest pain. - Continue home aspirin, statin and beta-blockade Qualifiers: Coronary Disease-Associated Artery/Lesion type: [place] artery [place] vs. transplanted heart: [place] heart Associated angina: without angina Qualified Code(s): I25.10 - Atherosclerotic heart disease of [place] coronary artery without angina pectoris (8) Dyslipidemia: Chronically on statin therapy. - Continue home atorvastatin (9) Anemia in chronic kidney disease, on chronic dialysis: Hemoglobin similar to prior values when misses hemodialysis. No gross bleeding. - Has script for Auryxia (10) COPD (chronic obstructive pulmonary disease): Not presently acute. - Supportive care Qualifiers: COPD type: chronic bronchitis Chronic bronchitis type: mixed simple and mucopurulent Qualified Code(s): J41.8 - Mixed simple and mucopurulent chronic bronchitis Plan Observation admission VTE prophylaxis: scds Antibiotics: none Pending studies: none except am labs Telemetry: on due to hyperkalemia, after hemodialysis can be removed Guzman: not indicated, makes no urine Line(s): peripheral IVs Disposition plan: Home with outpatient follow up to usual hemodualysis regimen and pcp Code Status: Full Code Supportive care otherwise Findings, concerns and plans were discussed with patient and they were given an opportunity to ask questions PDMP PDMP Reviewed: Last Reviewed 07/12/24 15:58 by Anya Vargas MD Attestations Medical Necessity Statement*: Currently anticipate a stay less than two midnights in this gentleman with hyperkalemia and hypertensive urgency and weakness/malaise related to missing hemodialysis for at least 2 sessions. Should feel closer to baseline after hemodialysis and paracentesis. Diagnoses Acute hyperkalemia E87.5 Anasarca associated with disorder of kidney N04.9 End stage renal disease on dialysis N18.6; Z99.2 Noncompliance Z91.199 Hypertensive urgency I16.0 History of arteriovenous graft Z98.890 Atherosclerosis of [place] coronary artery of [place] heart without angina pectoris I25.10 Coronary Disease-Associated Artery/Lesion type: [place] artery [place] vs. transplanted heart: [place] heart Associated angina: without angina Dyslipidemia E78.5 Anemia in chronic kidney disease, on chronic dialysis N18.6; D63.1; Z99.2 Mixed simple and mucopurulent chronic bronchitis J41.8 COPD type: chronic bronchitis Chronic bronchitis type: mixed simple and mucopurulent
[2024-07-12 15:02] LABS: Glucose Point of Care 65 mg/dL (70-110)
--- NOTE | 2024-07-12 15:06 | US_ITS ---
WS: [id number] ULTRASOUND-GUIDED THERAPEUTIC PARACENTESIS Procedure, risks, and complications have been explained to the patient. Consent is obtained. Utilizing aseptic technique and 1% buffered lidocaine, a small dermatome was made through which a 5 [place] Yueh catheter was inserted. Approximately 4000 ml of clear peritoneal fluid was obtained without difficulty. No complications encountered. US/US paracentesis abd w [id number] IMPRESSION: Uncomplicated paracentesis yielding 4000 ml of peritoneal fluid.
--- NOTE | 2024-07-12 15:23 | PM.CONSULT ---
Providers/Reason For Consult Consulting Physician/Specialty*: nephrology Reason for Consult*: hyperkalemia, esrd Requesting Physician: Dr Vargas Attending Physician: Anya Vargas MD Primary Care Provider: Delio Salazar MD History of Present Illness History of Present Illness Mal Gibbs is a 43 year old male, with a history of esrd, liver cirrhosis, htn, cad, who presented to the er on 07/12/2024 complaining of generalized weakness and sob. he notes that he last had a full hd treatment on thursday, 07/05. He ended his hd treatment early on 07/07 because he was having a fistula revision. he notes that he had fistula revision on thursday, 07/08 at [facility] and also missed his hd treatment on 07/09. He subsequently became more edematous with worsening sob and generalized weakness. On presentatoon, his cxr revealed pulmonary edema. Further woek-up was significant for a potassium of 6.5. Nephrology was consulted for urgent hemodialysis Review of Systems General: Reports: 10 or more systems reviewed and unremarkable except in HPI and below Medications/Allergies Home Medications ?Medication ?Instructions ?Recorded ?Confirmed ?Last Taken ?Type ferric citrate 210 mg iron tablet See Rx Instructions .Route .COMPLEX 11/03/21 07/12/24 06/28/24 History (Auryxia) aspirin 81 mg tablet,delayed 81 mg PO QAM 02/21/22 07/12/24 06/28/24 History release vit B,C-folic ac 800 mcg-zinc 12.5 1 tab PO QAM 10/01/22 07/12/24 06/28/24 History mg-selen-D3 2,000 unit-vit E tablet (RenaPlex-D) atorvastatin 40 mg tablet 40 mg PO BEDTIME 01/09/23 07/12/24 06/28/24 History carvedilol 25 mg tablet 37.5 mg PO Q12H 01/09/23 07/12/24 06/28/24 History hydralazine 100 mg tablet 100 mg PO Q8H 01/09/23 07/12/24 06/28/24 History minoxidil 2.5 mg tablet 10 mg PO TID 05/16/24 07/12/24 06/28/24 History sevelamer carbonate 800 mg tablet 1,600 mg PO TID 0107/12/24 06/28/24 History Allergies Allergy/AdvReac Type Severity Reaction Status Date / Time spironolactone Allergy Intermediate facial Verified 06/27/24 12:55 swelling haloperidol (From Haldol) Allergy ADR-Irritab Verified 06/27/24 12:55 le ketorolac Allergy Unknown Verified 06/27/24 12:55 lisinopril Allergy ADR-Swelling Verified 06/27/24 12:55 of the Eye nifedipine Allergy ALGY-Swell Verified 06/27/24 12:55 Lip/Tongue/Throat PFSH Acute PFSH: Medical History (Updated 07/12/24 @ 15:47 by Anya Vargas MD) Dyslipidemia History of home oxygen therapy COPD (chronic obstructive pulmonary disease) Patient under care of multiple providers Umbilical hernia Atherosclerosis of coronary artery Stent and balloon angioplasty to proximal 1 OM branch Abdominal ascites history of intermittent paracentesis, transudative fluid; prior work up has included negative biopsy, ceruloplasmin level normal, low iron, high ferritin, normal TIBC, negative HIV, hepatitis panel negative, JESÚS/SCL 70/double-stranded DNA antibodies negative, Alpha-fetoprotein level unremarkable, nonalcoholic by history, has hepatomegaly and splenomegaly Congestive heart failure preserved ejection fraction History of cardiovascular stress test 07/2022 at [facility] perfusion imaging probably normal, no reversible defects, small fixed defect in apical anterior wall, EF 54%, nonischemic response to stress by EKG criteria Depression Epididymitis 06/2022 Pulmonary hypertension Uses bilevel positive airway pressure (BPAP) ventilation at home History of coronary angiogram 11/2021 - patent stent Inguinal hernia Chronic respiratory failure on home oxygen and bipap Nicotine dependence, cigarettes, with other nicotine-induced disorders Generalized anxiety disorder with panic attacks ESRD on dialysis Chronic abdominal pain COVID 05/25 Hypertensive emergency recurrent episodes Urethral stricture Pulmonary embolism 09/21 CTA inconclusive for very tiny peripheral LEFT lower lobe pulmonary artery sub segmental emboli versus poor opacification. Anemia chronic kidney disease Arteriovenous fistula for hemodialysis in place, secondary Degenerative disc disease, lumbar Hypertension uncontrolled Surgical History (Updated 07/12/24 @ 15:22 by Anya Vargas MD) History of arteriovenous graft left upper extremity fistula, revision 07/2024 in [place] Stented coronary artery H/O hand surgery Amputation right 2&3 fingers 2017 History of adenoidectomy Family History Other Hypertension Social History Smoking and tobacco/nicotine status: current every day tobacco/nicotine user cigarettes Packs smoked per day: 1.5 Years cigarettes smoked: 21 [ Other cigarette details: started age 20, currently 0.5ppd ] Alcohol intake: never Substance/Drug Use: never Number of children: 3 Current occupational status: disabled Do you think of yourself as: Straight/Heterosexual Vitals/I&O/Wt Last Vital Signs Temp 98.3 F 07/12/24 11:40 Pulse 80 07/12/24 13:58 Resp 22 H 07/12/24 13:58 BP 187/102 07/12/24 13:58 Pulse Ox 95 07/12/24 13:58 O2 Del Method Nasal Cannula 07/12/24 13:58 O2 Flow Rate 3 07/12/24 13:58 07/12/24 07/12/24 07/12/24 06:59 14:59 22:59 Intake Total 250 / 250 Balance 250 / 250 Weight last 48 hrs Weight 77.111 kg Physical Exam Narrative: GEN: nad, alert, conversant HEAD: normocephalic, atraumatic EYES: eomi, anicteric sclera HEENT: MMM NECK: +ve jvd LUNGS: Bilateral expiratory wheezing with bibasilar crackles ABD: soft, distended, +fluid wave EXT: +2-3 LE edema to hips, +ve pre-sacral edema, +ve abdominal wall edema SKIN: no rash NEURO: grossly normal Data 07/12/24 12:31 07/12/24 12:31 A&P Assessment and plan (1) End stage renal disease on dialysis: esrd- He is on maintenance HD on a tts schedule, but last had a complete hd treatment on 07/05. he had a fistula revision on 07/08 and is unaware if his fistula may be used for HD. We will need to confirm with his vascular surgeon if/when his access may be used. If his avf is unable to be accessed, he will need a catheter placed for urgent HD or he will need to be transferred hyperkalemia- severe- i will use a low k dialysate anemia in ckd- he is on an outpatient morro and iron protocol. cont to monitor hgb essential hypertension- his bp is elevated, but i expect his bp control to improve with uf with hd cirrhosis- he has significant ascites. PDMP PDMP Reviewed: Not Reviewed Consult Attestations Medical Necessity Statement: esrd, cirrhosis, hyperkalemia Time Spent in Patient Care: 50 minutes Coding Level of Care Code Acute Code for Chg Fwd Diagnoses End stage renal disease on dialysis N18.6; Z99.2
[2024-07-12] MEDS: calcium carbonate 500 mg Chew Tablet 1000 MG PO (15:58)
[2024-07-12] MEDS: oxyCODONE 5 mg IR Tab/Cap PO (16:22)
[2024-07-12] MEDS: heparin, porcine 1,000 unit/mL INJ 10 mL 1000 UNIT IV (17:30)
--- NOTE | 2024-07-12 18:25 | PC.HD ---
Pt [facility] in ED with Dr Jordan [facility] Pt had fistula revision 07/08/[address] Gonzalez, vascular surgeon at [facility]. Reece wrap that patient had applied to forearm removed revealing surgical dressings to lower 2/3 (appx) of AVF, 1+ edema to forearm with ecchymosis along most of the length of the fistula. Pt complains that it is very painful, making his entire arm hurt. When asked, he says he doesn't know whether the surgeon wants it used but he doesn't want it used due to pain. Contacted the vascular surgery clinic to ask and was initially told that AVF is not to be used. When asked what the plan is for him to receive dialysis she called the surgeon who said that the AVF may be used but must be cannulated above the sutured areas. Dr Vargas ordered 1x dose of pain med to be given prior to dialysis treatment. Medication given in ED @16:22 and when pt arrived in dialysis room at 17:40 he was asleep, arousable, denies improvement in pain but quickly falls back to sleep. AVF cannulated without difficulty above surgical dressings, needles draw and flush easily and secured, treatment started. Ice applied to surgical area for pt comfort.
--- NOTE | 2024-07-12 21:34 | PM.DCS ---
Discharge Providers Date of Admission: 07/12/24 14:43 Date of Discharge: July 12, 2024 Attending Provider at Admission: Anya Vargas MD Attending Provider at Discharge: Anya Vargas MD Consults: Nephrology Primary Care Provider: Delio Salazar MD Diagnoses at Discharge Discharge Diagnosis (1) Acute hyperkalemia: Details from hospital stay: Treated with hemodialysis Status: Acute (2) Anasarca associated with disorder of kidney: Details from hospital stay: Status post ultrasound-guided paracentesis Status: Chronic (3) Hypertensive urgency: Details from hospital stay: Improved blood pressures after dialysis and volume removal Status: Acute (4) End stage renal disease on dialysis: Status: Acute (5) Noncompliance: Status: Acute (6) History of arteriovenous graft: Status: Chronic Permanent problem details: left upper extremity fistula, revision 07/2024 in [place] (7) Atherosclerosis of coronary artery: Status: Chronic Qualifiers: Associated angina: without angina Coronary Disease-Associated Artery/Lesion type: [place] artery [place] vs. transplanted heart: [place] heart Qualified Code(s): I25.10 - Atherosclerotic heart disease of [place] coronary artery without angina pectoris Permanent problem details: Stent and balloon angioplasty to proximal 1 OM branch (8) Dyslipidemia: Status: Chronic (9) Anemia in chronic kidney disease, on chronic dialysis: Status: Chronic (10) COPD (chronic obstructive pulmonary disease): Status: Chronic Qualifiers: COPD type: chronic bronchitis Chronic bronchitis type: mixed simple and mucopurulent Qualified Code(s): J41.8 - Mixed simple and mucopurulent chronic bronchitis Reason for Visit Reason for Visit: weakness Brief History: Mal Gibbs is a 43 year old male with a history of end-stage renal disease on hemodialysis, liver cirrhosis with recurrent paracentesis, hypertension, hyperlipidemia, atherosclerotic heart disease who presented to the emergency room with chief complaint of weakness and not being able to get out of bed. He is not able to tell me when he last went to hemodialysis. Reports that his usual schedule is Tuesdays and Saturdays. Did not go today and did not go on Thursday and may not have gone on of last week but it is not clear at this point. He says he did have a procedure on his left upper extremity fistula on Thursday in [place], [facility]. Indicates this is why he missed his dialysis appointments. He says he had paracentesis Thursday as well but records here indicate his last paracentesis was on June 29 when he had 9.5 L removed. I do not have records from [place] however available to review. He has an appointment scheduled in our GI lab on July 18. Remains on home oxygen at 3 L by nasal cannula. No fever. General malaise. Describes hurting all over. Feels like he needs another paracentesis. He came in via EMS. Blood pressures 180s over 120s which is not unusual for him when he presents having missed dialysis. Workup showed potassium of 6.5. EKG with sinus rhythm and some nonspecific ST segment changes that have varied over time on review of several EKGs dating back to about a year ago. Given missed dialysis, anasarca, current blood pressures and chronic medical conditions is being admitted for emergent care. Has frequent admissions after missing dialysis and/or paracentesis. He has not had his usual home medications today. In the emergency room he received insulin and D10 x 2, calcium gluconate and albuterol. Hospital Course Hospital Course Mr. Gibbs was admitted to observation status. Arrangements were made for ultrasound-guided paracentesis. 4 L of fluid was removed without complication. Subsequently we were able to arrange dialysis. Blood pressures improved at 148/96 with stable heart rate and maintenance of usual oxygenation. Patient was deemed clinically stable for discharge home with outpatient follow-up. He needs to keep his regular dialysis and paracentesis scheduled. Here at [facility] we have him scheduled already on July 18 for next paracentesis. His AV fistula was recently revised in [place] and will need to keep follow-up with them in addition to nephrology and primary care provider. Patient was encouraged not to miss scheduled appointments for usual care as when he gets acutely decompensated as he was today it can exacerbate his chronic conditions and deplete bodily reserves even further.Towards the end of dialysis patient's color and respiratory status were much improved from presentation. He was resting comfortably. Discharge Data Studies Completed and Pending Completed Studies During Hospitalization Category Date Time Status XR chest 1V portable [id number] Stat Exams 07/12/24 11:36 Completed Pending at discharge Category Date Time Status Basic Metabolic Panel AM LABS Lab 07/13/24 04:00 Ordered Complete Blood Count w/Auto AM LABS Lab 07/13/24 04:00 Ordered Hepatitis B Surface AB Stat Lab 07/12/24 18:30 Received Hepatitis B Surface Antigen Stat Lab 07/12/24 18:30 Received Hepatitis C Virus Antibody Stat Lab 07/12/24 18:30 Received Magnesium AM LABS Lab 07/13/24 04:00 Ordered Phosphorus AM LABS Lab 07/13/24 04:00 Ordered US paracentesis abdomen [US paracentesis abd w [id number]] Ultrasound 07/12/24 15:06 Taken Routine - performed Radiology Impressions Chest X-Ray 07/12/24 11:36 IMPRESSION: Mild vascular congestion without definitive consolidations. Laboratory Results WBC 5.65 10^3/uL (3.29-11.43) 07/12/24 12:31 RBC 2.92 10^6/uL (3.85-5.65) L 07/12/24 12:31 Hgb 8.40 g/dL (11.27-16.99) L 07/12/24 12:31 Hct 26.9 % (37-53) L 07/12/24 12:31 MCV 92.1 fl (82-101) 07/12/24 12:31 MCH 28.8 pg (27-33) 07/12/24 12:31 MCHC 31.2 g/dL (30-55) 07/12/24 12:31 RDW 18.3 % (12.1-15.1) H 07/12/24 12:31 Plt Count 200 10^3/cmm (157-399) 07/12/24 12:31 MPV 10.1 fL (7.4-10.4) 07/12/24 12:31 Neut % (Auto) 76.2 % 07/12/24 12:31 Lymph % (Auto) 8.8 % 07/12/24 12:31 [place] % (Auto) 11.2 % 07/12/24 12:31 Eos % (Auto) 1.1 % 07/12/24 12:31 Baso % (Auto) 0.2 % 07/12/24 12:31 Neut # (Auto) 4.31 10^3/uL (1.8-7.7) 07/12/24 12:31 Lymph # (Auto) 0.5 10^3/uL (0.8-4.8) L 07/12/24 12:31 [place] # (Auto) 0.6 10^3/uL (0.2-0.9) 07/12/24 12:31 Eos # (Auto) 0.1 10^3/uL (0.0-0.8) 07/12/24 12:31 Baso # (Auto) 0.0 10^3/uL (0.0-0.1) 07/12/24 12:31 Nucleated RBC % (auto) 0.4 % 07/12/24 12: Nucleated RBCs # 0.0 /100WBC 07/12/24 12: PT 14.30 SECONDS (12.1-14.9) 07/12/24 12: INR 1.04 (0.8-1.2) 07/12/24 12:31 Sodium 130 mmol/L (136-145) L 07/12/24 12:31 Potassium 6.5 mmol/L (3.5-5.1) H* 07/12/24 12: Chloride 93 mmol/L (98-107) L 07/12/24 12:31 Carbon Dioxide 22 mmol/L (22-29) 07/12/24 12:31 Anion Gap 21.5 (5-19) H 07/12/24 12:31 BUN 71 mg/dL (6-20) H 07/12/24 12:31 Creatinine 8.4 mg/dL (0.7-1.2) H* 07/12/24 12:31 GFR Calculation 7.1 mL/min (90-130) L 07/12/24 12:31 Glucose 82 mg/dL (65-115) 07/12/24 12: POC Glucose 65 mg/dL (70-110) L 07/12/24 15:00 Calculated Osmolality 290 mOsm/kg (285-295) 07/12/24 12: Calcium 10.0 mg/dL (8.5-10.5) 07/12/24 12:31 Total Bilirubin 0.2 mg/dL (0.15-1.2) 07/12/24 12:31 AST 14 U/L (0-40) 07/12/24 12:31 ALT < 5 U/L (0-41) 07/12/24 12:31 Alkaline Phosphatase 96 U/L (40-130) 07/12/24 12:31 Total Protein 6.3 g/dL (6.6-8.7) L 07/12/24 12:31 Albumin 2.9 g/dL (3.5-5.2) L 07/12/24 12:31 Globulin 3.4 g/dL (1.3-4.6) 07/12/24 12:31 Laboratory Tests 07/12/24 18:30 Hep Bs Antigen Non-reactive Hep Bs Antibody 76.4 Hepatitis C Antibody Non-reactive Procedures Performed Ultrasound-guided paracentesis Hemodialysis Vitals Last Vital Signs Temp 98.6 F 07/12/24 20:45 Pulse 85 07/12/24 20:45 Resp 18 07/12/24 20:45 BP 144/88 07/12/24 20:45 Pulse Ox 96 07/12/24 20:45 O2 Del Method Nasal Cannula 07/12/24 17:50 O2 Flow Rate 3 07/12/24 13:58 Discharge Plan Discharge Patient Disposition: Home Condition: Stable Prescriptions: Continued Auryxia 210 mg iron Tablet See Rx Instructions .ROUTE .COMPLEX Rx Instructions: Take 420 mg (2 tablets) by mouth three times a day and 210mg (1 tablet) with snacks. aspirin 81 mg tablet,delayed release (DR/EC) 81 mg PO QAM Patient Comments: pt takes qhs on wednesdays RenaPlex-D 800 mcg-12.5 mg -2,000 unit tablet 1 tab PO QAM carvedilol 25 mg tablet 37.5 mg PO Q12H atorvastatin 40 mg tablet 40 mg PO BEDTIME hydralazine 100 mg tablet 100 mg PO Q8H minoxidil 2.5 mg tablet 10 mg PO TID sevelamer carbonate 800 mg tablet 1,600 mg PO TID Discharge Orders: Discharge Order (Routine); Ordered 07/12/24 Ordered By: Anya Vargas Referrals: hemodialysis [Other] - 1-3 days (as scheduled) paracentesis [Other] - 07/18/24 12:00 pm (as already scheduled) Delio Salazar MD [Primary Care Provider] - 4-7 days Discharge Diet: Advance as tolerated Discharge Activity: Resume usual activity Patient Instructions: End Stage Kidney Disease (DC), Edema (DC), Opioid Safety Activity Restrictions/Additional Instructions: Keep appointments for usual hemodialysis schedule Keep appointment for vascular follow-up after fistula revision as scheduled or previously instructed Keep appointments for usual paracentesis, next is 07/18/24 at noon See PCP regularly Take medications as prescribed While here you had hemodialysis and paracentesis. 4 liters or 4000 milliliters of fluid was removed during paracentesis. Discharge Attestations Time Spent in Discharge Care*: greater than 30 min Specific Discharge Activities: educating patient, documenting/other paperwork and evaluating patient/reviewing data Status at Discharge: Cognitive status at discharge: cognitively intact, Behavioral status at discharge: cooperative, Quality Metrics Clinical Quality Measures [ No reported AMI, CVA or VTE this stay] Coding Level of Care Code Acute Code for Chg Fwd Diagnoses Acute hyperkalemia E87.5 Anasarca associated with disorder of kidney N04.9 Hypertensive urgency I16.0 End stage renal disease on dialysis N18.6; Z99.2 Noncompliance Z91.199 History of arteriovenous graft Z98.890 Atherosclerosis of [place] coronary artery of [place] heart without angina pectoris I25.10 Associated angina: without angina Coronary Disease-Associated Artery/Lesion type: [place] artery [place] vs. transplanted heart: [place] heart Dyslipidemia E78.5 Anemia in chronic kidney disease, on chronic dialysis N18.6; D63.1; Z99.2 Mixed simple and mucopurulent chronic bronchitis J41.8 COPD type: chronic bronchitis Chronic bronchitis type: mixed simple and mucopurulent Comment [id number]
[2024-07-12 21:47] LABS: Hepatitis B Surface AB 76.4 (11.5-1000); Hepatitis B Surface Antigen Non-Reactive (Nonreactive); Hepatitis C Virus Antibody Non-Reactive (Nonreactive)
[2024-07-12] MEDS: ipratropium-albuterol 3 mL Neb INHALATION (22:17)
[2024-07-12] MEDS: atorvastatin 40 mg Tablet PO (22:23)
[2024-07-12] MEDS: carvedilol 25 mg Tablet 37.5 MG PO (22:23)
[2024-07-12] MEDS: hyDRALAzine 50 mg Tablet 100 MG PO (22:23)
[2024-07-12] MEDS: minoxidil 10 mg Tablet PO (22:24)
--- NOTE | 2024-07-13 10:33 | PC.NURSE ---
Dr Vargas asked if automotive service writer could call and get pcp follow up and then call the patient to let him know about appointment and to just check on him this am. Educator Senior Clinical called and made patient aware of appointment date and time with Dr Salazar. Patient verbalized understanding and said he is feeling better today.
== END 2024-07-12 22:00 | disposition home or self-care (01) | DRG 682 ==
LOC: ER 14:26 → ER IP 14:43 → MEDSURG 15:10
PROVIDERS: Internal Medicine Nephrology; Admitting Provider Hospitalist; Emergency Provider Emergency Medicine; PCP Family Medicine; Visit Provider Hospitalist
DX: I12.0 Hypertensive chronic kidney disease with stage 5 chronic kidney disease or end stage renal disease (principal); N18.6 End stage renal disease; J96.11 Chronic respiratory failure with hypoxia; R18.8 Other ascites; Z99.2 Dependence on renal dialysis; Z91.158 Patient's noncompliance with renal dialysis for other reason; I16.0 Hypertensive urgency; E87.5 Hyperkalemia; I25.10 Atherosclerotic heart disease of native coronary artery without angina pectoris; Z95.5 Presence of coronary angioplasty implant and graft; E78.5 Hyperlipidemia, unspecified; D63.1 Anemia in chronic kidney disease; J41.8 Mixed simple and mucopurulent chronic bronchitis; K74.60 Unspecified cirrhosis of liver; Z79.82 Long term (current) use of aspirin; Z99.81 Dependence on supplemental oxygen; F32.A Depression, unspecified; F17.210 Nicotine dependence, cigarettes, uncomplicated; F41.1 Generalized anxiety disorder; Z86.16 Personal history of COVID-19
CPT/HCPCS: 36415; 36416; 49083; 71045; 80053; 82962; 85025; 85610; 86706; 86803; 87340; 90935; 93005; 94640; 96374; 96375; 99285; J0612; J1644; J1815; J7613; J7799; J9999

== ENCOUNTER 2024-07-18 12:01 | Day surgery (SDC) | payer MEDICARE, MEDICAID, SELFPAY ==
--- NOTE | 2024-07-18 12:05 | US_ITS ---
WS: [id number] ULTRASOUND-GUIDED PARACENTESIS CLINICAL INFORMATION: cirrhosis of liver with ascites COMPARISON: None. Procedure Informed consent: The risks, benefits, and alternatives of the procedure were discussed with the patient. Verbal and written consent was obtained. Timeout: A timeout was performed to confirm the correct patient, procedure, and site. Preparation: A suitable skin site was identified. The patient was prepped and draped in usual sterile fashion. Lidocaine 1% was used for local anesthesia. Catheter: 4 [place] One-step [place] catheter. Side: LEFT lower quadrant. Fluid Volume: 4600 ml Color: Clear yellow DISPOSITION: Discarded safely. Complications: None. Patient disposition: Discharged from the department in stable condition. US/US paracentesis abd w [id number] IMPRESSION: Uncomplicated ultrasound-guided paracentesis. Removal of 4600 cc
[2024-07-18 12:11] VITALS: BP 151/84; PULSE 68; RESP 19; TEMP 36.7; O2SAT 98
[2024-07-18 12:13] VITALS: BMI 27.0
[2024-07-18 12:59] LABS: Cyto Order Verification Order Verified
[2024-07-18 13:46] LABS: Albumin Peritoneal Fluid 1.6 g/dL; Total Protein Peritoneal Fluid 3.2 g/dL
== END 2024-07-18 13:15 | disposition home or self-care (01) ==
PROVIDERS: Radiology Neuroradiology; PCP Family Medicine; Visit Provider Internal Medicine
PROC: (CPT 49082; principal; 2024-07-18 12:00)
DX: R18.8 Other ascites (principal); K74.60 Unspecified cirrhosis of liver
CPT/HCPCS: 49083; 82042; 84157; 87070; 87075; 87205; 88112; 88305

== ENCOUNTER 2024-07-25 11:38 | Day surgery (SDC) | payer MEDICARE, MEDICAID, SELFPAY ==
--- NOTE | 2024-07-25 11:44 | US_ITS ---
WS: [id number] Abdominal ultrasound, limited. History: Evaluate for ascites. Comparison: None. All 4 quadrants are imaged by ultrasound to evaluate for ascites. Small to moderate amount of ascites in all 4 quadrants. Patient has elected to wait an additional week as he is not particularly uncomfortable. US/US abdomen lmt fluid [id number] IMPRESSION: No paracentesis will be performed today as patient has elected to wait an addit ional week.
[2024-07-25 11:45] VITALS: BP 112/64; PULSE 71; RESP 18; TEMP 36.4; O2SAT 93; BMI 26.4
== END 2024-07-25 12:13 | disposition home or self-care (01) ==
LOC: GILAB 11:38
PROVIDERS: Radiology Diagnostic Radiology; PCP Family Medicine; Visit Provider Internal Medicine
DX: R18.8 Other ascites (principal)
CPT/HCPCS: 49083; 76705

== ENCOUNTER 2024-08-13 13:58 | Observation (INO) | payer MEDICARE, MEDICAID, SELFPAY ==
[2024-08-13] VITALS (10 sets, daily range): BP systolic 121–151; BP diastolic 62–111; PULSE 63–81; RESP 11–19; TEMP 36.4–36.6; O2SAT 92–97; BMI 27.0
--- NOTE | 2024-08-13 14:03 | XRR_ITS ---
PROCEDURE INFORMATION: Exam: XR Chest Exam date and time: 08/13/2024 2:23 PM Age: 43 years old Clinical indication: Other: Weakness TECHNIQUE: Imaging protocol: Radiologic exam of the chest. Views: 1 view. COMPARISON: CR XR chest 1V portable [id number] 07/12/2024 11:58 AM FINDINGS: Lungs: Chronic granulomatous changes. Lungs are free of acute disease. Pleural spaces: Unremarkable. No pleural effusion. No pneumothorax. Heart/Mediastinum: There is moderate cardiomegaly. Bones/joints: Unremarkable. XR/XR chest 1V portable [id number] IMPRESSION: No acute findings.
--- NOTE | 2024-08-13 14:03 | CTR_ITS ---
PROCEDURE INFORMATION: Exam: CT Head Without Contrast Exam date and time: 08/13/2024 2:28 PM Age: 43 years old Clinical indication: Altered mental status/memory loss; Additional info: Encephalopathy, altered mental status TECHNIQUE: Imaging protocol: Computed tomography of the head without contrast. Radiation optimization: All CT scans at this facility use at least one of these dose optimization techniques: automated exposure control; mA and/or kV adjustment per patient size (includes targeted exams where dose is matched to clinical indication); or iterative reconstruction. COMPARISON: CT head wo con* [id number] 03/14/2022 4:45 PM RADIATION DOSE METRICS: Total DLP (mGy-cm): 1130.34 FINDINGS: Brain: Normal. No hemorrhage. Unremarkable white matter. No mass effect. Cerebral ventricles: No ventriculomegaly. Paranasal sinuses: Slight mucosal thickening in the right maxillary sinus. Mastoid air cells: Visualized mastoid air cells are well aerated. Bones: Unremarkable. No acute fracture. Soft tissues: Unremarkable. CT/CT head wo con* [id number] IMPRESSION: No acute intracranial abnormality.
[2024-08-13 14:26] LABS: Basophils # 0.1 10^3/uL (0.0-0.1); Basophils % 1.5 %; Eosinophils # 0.2 10^3/uL (0.0-0.8); Eosinophils % 4.4 %; Hematocrit 29.5 % (37-53); Lymphocytes # 0.5 10^3/uL (0.8-4.8); Lymphocytes % 11.4 %; Mean Corpuscular HGB Conc 31.5 g/dL (30-55); Mean Corpuscular Volume 88.9 fl (82-101); Mean Platelet Volume 9.8 fL (7.4-10.4); Monocytes # 0.5 10^3/uL (0.2-0.9); Monocytes % 10.8 %; Neutrophils # 3.26 10^3/uL (1.8-7.7); Neutrophils % 71.7 %; Nucleated Red Blood Cells % 0 %; Platelet Count 244 10^3/cmm (157-399); Red Blood Count 3.32 10^6/uL (3.85-5.65); Red Cell Distribution Width 16.2 % (12.1-15.1); White Blood Count 4.55 10^3/uL (3.29-11.43)
--- NOTE | 2024-08-13 14:29 | W.ED.AMS ---
HPI - Altered Mental Status General: Chief Complaint: Altered Mental Status Stated Complaint: ams Time Seen by Provider: 08/13/24 14:00 History of Present Illness: 43-year-old man with a history of hyperlipidemia, COPD, chronic hypoxemic respiratory failure on home oxygen, coronary artery disease, congestive heart failure, end-stage renal disease on dialysis, pulmonary hypertension, pulmonary embolism, chronic abdominal pain and tobacco dependence who presents emergency room with confusion. His abdomen appears distended. Apparently he has not been dialysis in almost 2 weeks now. He says he does have paracentesis but he does not have cirrhosis. He is somnolent. No focal motor deficits. He does wake up he often falls asleep in the middle of answering question. He says this is because he does not sleep well at night. Related Data Home Medications ?Medication ?Instructions ?Recorded ?Confirmed ferric citrate 210 mg iron tablet See Rx Instructions .Route .COMPLEX 11/03/21 08/13/24 (Auryxia) aspirin 81 mg tablet,delayed 81 mg PO QAM 02/21/22 08/13/24 release vit B,C-folic ac 800 mcg-zinc 12.5 1 tab PO QAM 10/01/22 08/13/24 mg-selen-D3 2,000 unit-vit E tablet (RenaPlex-D) atorvastatin 40 mg tablet 40 mg PO BEDTIME 01/09/23 08/13/24 carvedilol 25 mg tablet 37.5 mg PO Q12H 01/09/23 08/13/24 hydralazine 100 mg tablet 100 mg PO Q8H 01/09/23 08/13/24 minoxidil 2.5 mg tablet 10 mg PO TID 05/16/24 08/13/24 sevelamer carbonate 800 mg tablet 1,600 mg PO TID 05/16/24 08/13/24 Allergies Allergy/AdvReac Type Severity Reaction Status Date / Time spironolactone Allergy Intermediate facial Verified 08/12/24 11:38 swelling haloperidol (From Haldol) Allergy ADR-Irritab Verified 08/12/24 11:38 le ketorolac Allergy Unknown Verified 08/12/24 11:38 lisinopril Allergy ADR-Swelling Verified 08/12/24 11:38 of the Eye nifedipine Allergy KATERINY-Swell Verified 08/12/24 11:38 Lip/Tongue/Throat Review of Systems General: Reports: 10 or more systems reviewed and unremarkable except in HPI and below Narrative: Constitutional symptoms: Negative except as documented in HPI. Skin symptoms: Negative except as documented in HPI. Eye symptoms: Negative except as documented in HPI. ENMT symptoms: Negative except as documented in HPI. Respiratory symptoms: Negative except as documented in HPI. Cardiovascular symptoms: Negative except as documented in HPI. Gastrointestinal symptoms: Negative except as documented in HPI. Genitourinary symptoms: Negative except as documented in HPI. Musculoskeletal symptoms: Negative except as documented in HPI. Neurologic symptoms: Negative except as documented in HPI. Psychiatric symptoms: Negative except as documented in HPI. Endocrine symptoms: Negative except as documented in HPI. PFS ED PFSH: Medical History (Updated 08/13/24 @ 16:12 by Naomi Persuad MD) Dyslipidemia History of home oxygen therapy COPD (chronic obstructive pulmonary disease) Patient under care of multiple providers Umbilical hernia Atherosclerosis of coronary artery Stent and balloon angioplasty to proximal 1 OM branch Abdominal ascites history of intermittent paracentesis, transudative fluid; prior work up has included negative biopsy, ceruloplasmin level normal, low iron, high ferritin, normal TIBC, negative HIV, hepatitis panel negative, JESÚS/SCL 70/double-stranded DNA antibodies negative, Alpha-fetoprotein level unremarkable, nonalcoholic by history, has hepatomegaly and splenomegaly Congestive heart failure preserved ejection fraction History of cardiovascular stress test 07/2022 at [facility] perfusion imaging probably normal, no reversible defects, small fixed defect in apical anterior wall, EF 54%, nonischemic response to stress by EKG criteria Depression Epididymitis 06/2022 Pulmonary hypertension Uses bilevel positive airway pressure (BPAP) ventilation at home History of coronary angiogram 11/2021 - patent stent Inguinal hernia Chronic respiratory failure on home oxygen and bipap Nicotine dependence, cigarettes, with other nicotine-induced disorders Generalized anxiety disorder with panic attacks ESRD on dialysis Chronic abdominal pain COVID 05/25 Hypertensive emergency recurrent episodes Urethral stricture Pulmonary embolism 09/21 CTA inconclusive for very tiny peripheral LEFT lower lobe pulmonary artery sub segmental emboli versus poor opacification. Anemia chronic kidney disease Arteriovenous fistula for hemodialysis in place, secondary Degenerative disc disease, lumbar Hypertension uncontrolled Surgical History (Updated 07/13/24 @ 00:01 by HALEIGH Chan) History of arteriovenous graft left upper extremity fistula, revision 07/2024 in [place] Stented coronary artery H/O hand surgery Amputation right 2&3 fingers 2017 History of adenoidectomy Family History Other Hypertension Social History Smoking and tobacco/nicotine status: current every day tobacco/nicotine user cigarettes Packs smoked per day: 1.5 Years cigarettes smoked: 21 [ Other cigarette details: started age 20, currently 0.5ppd ] Alcohol intake: never Substance/Drug Use: never Number of children: 3 Current occupational status: disabled Do you think of yourself as: Straight/Heterosexual Physical Exam Narrative: General: Somnolent but arousable Skin: Warm, dry Head: Normocephalic, atraumatic. Neck: Supple, trachea midline. Eye: Extraocular movements are intact. Ears, nose, mouth and throat: Dry oral mucosa. Cardiovascular: Regular rate and rhythm, Normal peripheral perfusion. Respiratory: Lungs are clear to auscultation, respirations are non-labored, breath sounds are equal, Symmetrical chest wall expansion. Gastrointestinal: Soft, Nontender, Non distended, Normal bowel sounds. Musculoskeletal: no deformity. Neurological: Somnolent but oriented when awakened, No obvious focal neurological deficit observed. Psychiatric: unable to assess. Course Vital Signs: Vital signs: Vital Signs Temperature 97.8 F 08/13/24 13:58 Pulse Rate 69 08/13/24 13:58 Respiratory Rate 19 H 08/13/24 13:58 Blood Pressure 136/77 08/13/24 13:58 Pulse Oximetry 97 08/13/24 13:58 Oxygen Delivery Me thod Room Air 08/13/24 13:58 MDM - Altered Mental Status Medical Decision Making Medical decision making: Differential diagnosis including but not limited to and based on the above HPI, review of systems and physical exam: In this patient with altered mental status: Stroke. Hypoglycemia. Metabolic encephalopathy. Infections such as pneumonia, urinary tract infection, Covid-19, Influenza. Electrolyte abnormalities such as hypernatremia. Renal failure / uremia. Hepatic encephalopathy. Hypoxemia. Hypercapnic respiratory failure. Psychosis. Drug or alcohol intoxication. Medication overdose. Orders placed to evaluate differential diagnosis based on the above differential, HPI and physical exam Chest x-ray: Stable cardiomegaly. No acute process. No infiltrate. No pneumothorax. This was reviewed and interpreted by myself the emergency room physician. I also reviewed the radiology report. Lab Review: Laboratory results were reviewed and interpreted by myself the emergency room physician. No leukocytosis. Stable anemia. Glucose is low at 59. Recheck with Accu-Chek showed at 60. He was given orange juice and has improved into the 70s. I reviewed the patient's medical record. Reexamination: Patient remains fairly somnolent. Now when asking why he is here he says it was not because of his sleepiness but rather because of they are concerned about his access being read where he had stitches. And also because he was late and they did not have time to dialyze him today. He has remained somnolent but will wake up. He continues to tell me its because he does not sleep well. He says he is not taking any drugs. His BUN is not particularly elevated and he does not have an elevated ammonia. His sodium is a little low but this is not uncommon for him. He does have some erythema to his distal venous fistula but he says they have been doing dialysis proximal to the area where he had the procedure done to it. Consultation: I spoke Dr. Constantino who is on-call for the hospitalist service who agrees to admission. Consultation: I spoke with Dr. Kearns who is on-call for nephrology via telemedicine and she will evaluate the patient and direct dialysis. Assessment and plan: End-stage renal disease on dialysis Hyperkalemia Hypoglycemia Somnolence ?Patient has been somnolent but is received some orange juice and this is improved sugars. -I discussed the patient with the hospitalist on-call who is admitting the patient. - Discussed findings and plan with patient. Answered any questions. - All laboratory values were reviewed and interpreted personally by myself, the ER physician - All imaging was reviewed and interpreted personally by myself, the ER physician. - Evaluation and treatment of this problem were appropriate in the emergency setting Lab Data 08/13/24 14:14 08/13/24 14:14 Radiology Impressions Chest X-Ray 08/13/24 14:03 IMPRESSION: No acute findings. Head CT 08/13/24 14:03 IMPRESSION: No acute intracranial abnormality. Laboratory Results WBC 4.55 10^3/uL (3.29-11.43) 08/13/24 14:14 RBC 3.32 10^6/uL (3.85-5.65) L 08/13/24 14:14 Hgb 9.30 g/dL (11.27-16.99) L 08/13/24 14:14 Hct 29.5 % (37-53) L 08/13/24 14:14 MCV 88.9 fl (82-101) 08/13/24 14:14 MCH 28.0 pg (27-33) 08/13/24 14:14 MCHC 31.5 g/dL (30-55) 08/13/24 14:14 RDW 16.2 % (12.1-15.1) H 08/13/24 14:14 Plt Count 244 10^3/cmm (157-399) 08/13/24 14:14 MPV 9.8 fL (7.4-10.4) 08/13/24 14:14 Neut % (Auto) 71.7 % 08/13/24 14:14 Lymph % (Auto) 11.4 % 08/13/24 14:14 Humphreys % (Auto) 10.8 % 08/13/24 14:14 Eos % (Auto) 4.4 % 08/13/24 14:14 Baso % (Auto) 1.5 % 08/13/24 14:14 Neut # (Auto) 3.26 10^3/uL (1.8-7.7) 08/13/24 14:14 Lymph # (Auto) 0.5 10^3/uL (0.8-4.8) L 08/13/24 14:14 Humphreys # (Auto) 0.5 10^3/uL (0.2-0.9) 08/13/24 14:14 Eos # (Auto) 0.2 10^3/uL (0.0-0.8) 08/13/24 14:14 Baso # (Auto) 0.1 10^3/uL (0.0-0.1) 08/13/24 14:14 Nucleated RBC % (auto) 0 % 08/13/24 14:14 Nucleated RBCs # 0.0 /100WBC 08/13/24 14:14 PT 15.70 SECONDS (12.1-14.9) H 08/13/24 14:14 INR 1.17 (0.8-1.2) 08/13/24 14:14 APTT 45.9 SECONDS (23.9-36.7) H 08/13/24 14:14 Specimen Type Arterial 08/13/24 15:50 Sample Site Brachial, right 08/13/24 15:50 ABG pH 7.37 (7.35-7.45) 08/13/24 15:50 ABG pCO2 44.9 mmHg (35-45) 08/13/24 15:50 ABG pO2 64.9 mmHg (80.0-100.0) L 08/13/24 15:50 ABG HCO3 25.9 mmol/L (22-26) 08/13/24 15:50 ABG O2 Saturation 92.0 08/13/24 15:50 ABG Base Excess 0.4 mmol/L (-2.0-2.0) 08/13/24 15:50 Alexei Test N/a 08/13/24 15:50 A-a O2 Gradient 3.9 mmHg (5-10) L 08/13/24 15:50 Hematocrit 29.5 % (42-52) L 08/13/24 15:50 Hgb O2 Saturation 88.8 % (95-100) L 08/13/24 15:50 Carboxyhemoglobin 2.3 %THgb (0.4-20.1) 08/13/24 15:50 Methemoglobin 1.2 % (0.4-1.5) 08/13/24 15:50 Total Hemoglobin 9.6 g/dL (14-18) L 08/13/24 15:50 Sodium 126.0 mmol/L (131-143) L 08/13/24 15:50 Potassium 5.2 mmol/L (3.5-5.0) H 08/13/24 15:50 Glucose 57.0 mg/dL (70-115) L 08/13/24 15:50 Ionized Calcium 1.3 mmol/L (1.1-1.4) 08/13/24 15:50 O2 Delivery Device Room air 08/13/24 15:50 Diesel Service Apprentice ID Broma 08/13/24 15:50 Sodium 127 mmol/L (136-145) L 08/13/24 14:14 Potassium 5.4 mmol/L (3.5-5.1) H 08/13/24 14:14 Chloride 90 mmol/L (98-107) L 08/13/24 14:14 Carbon Dioxide 24 mmol/L (22-29) 08/13/24 14:14 Anion Gap 18.4 (5-19) 08/13/24 14:14 BUN 43 mg/dL (6-20) H 08/13/24 14:14 Creatinine 11.8 mg/dL (0.7-1.2) H* 08/13/24 14:14 GFR Calculation 4.8 mL/min (90-130) L 08/13/24 14:14 Glucose 59 mg/dL (65-115) L 08/13/24 14:14 POC Glucose 67 mg/dL (70-110) L 08/13/24 16:13 Calculated Osmolality 273 mOsm/kg (285-295) L 08/13/24 14:14 Lactic Acid 0.6 mmol/L (0.5-2.2) 08/13/24 14:14 Calcium 9.2 mg/dL (8.5-10.5) 08/13/24 14:14 Phosphorus 6.8 mg/dL (2.5-4.5) H 08/13/24 14:14 Magnesium 2.1 mg/dL (1.7-2.3) 08/13/24 14:14 Total Bilirubin 0.2 mg/dL (0.15-1.2) 08/13/24 14:14 AST 72 U/L (0-40) H 08/13/24 14:14 ALT 49 U/L (0-41) H 08/13/24 14:14 Alkaline Phosphatase 150 U/L (40-130) H 08/13/24 14:14 Ammonia 15 umol/L (16-60) L 08/13/24 14:14 Total Protein 6.1 g/dL (6.6-8.7) L 08/13/24 14:14 Albumin 2.3 g/dL (3.5-5.2) L 08/13/24 14:14 Globulin 3.8 g/dL (1.3-4.6) 08/13/24 14:14 Ethyl Alcohol < 10 mg/dL (0-10) 08/13/24 14:14 All radiology interpretation(s) finalized by discharge Discharge Plan Discharge Patient Disposition: Placed in Observation Clinical Impression: End stage renal disease on dialysis, Hypoglycemia, Somnolence, Hyperkalemia Coding Level of Care Code ED Corporate Counsel for Cristi Diane
[2024-08-13 14:43] LABS: INR 1.17 (0.8-1.2)
[2024-08-13 14:45] LABS: Partial Thromboplastin Time 45.9 SECONDS (23.9-36.7)
--- NOTE | 2024-08-13 14:45 | ECG_ITS ---
[facility] Test Date: 2024-08-13 Pat Name: Mal Gibbs Department: Room: Gender: Male [facility] Author: : 1980 Requested By: Naomi Spencer Order Number: [id number] Rajan MD: Ruba Hussein M.D. Measurements Intervals [place] Rate: 72 P: 73 ND: 317 QRS: 109 QRSD: 126 T: 94 QT: 413 QTc: 455 Interpretive Statements SINUS RHYTHM WITH FIRST DEGREE AV BLOCK RIGHT AXIS DEVIATION [QRS AXIS > 100] MODERATE INTRAVENTRICULAR CONDUCTION DELAY [110+ ms QRS DURATION] ST DEVIATION AND MODERATE T-WAVE ABNORMALITY, CONSIDER LATERAL ISCHEMIA [-0.1+ mV T-WAVE IN I/aVL/V5/V6] Compared to ECG 07/12/2024 11:38:30 Right-axis deviation now present T-wave abnormality now present Possible ischemia now present ST (T wave) deviation no longer present Electronically Signed On 08-14-2024 21:16:24 CDT by Ruba Hussein M.D. [email or web address]
[2024-08-13 14:49] LABS: Alanine Aminotransferase 49 U/L (0-41); Albumin Level 2.3 g/dL (3.5-5.2); Alkaline Phosphatase 150 U/L (40-130); Anion Gap 18.4 (5-19); Aspartate Amino Transferase 72 U/L (0-40); Blood Urea Nitrogen 43 mg/dL (6-20); Calcium 9.2 mg/dL (8.5-10.5); Carbon Dioxide 24 mmol/L (22-29); Chloride 90 mmol/L (98-107); Creatinine Clr Calc Pharmacy 9.9203; Globulin 3.8 g/dL (1.3-4.6); Glomerular Filtration Rate 4.8 mL/min (90-130); Glucose 59 mg/dL (65-115); Magnesium 2.1 mg/dL (1.7-2.3); Osmolality Calculated 273 mOsm/kg (285-295); Phosphorus 6.8 mg/dL (2.5-4.5); Potassium 5.4 mmol/L (3.5-5.1); Sodium 127 mmol/L (136-145); Total Bilirubin 0.2 mg/dL (0.15-1.2); Total Protein 6.1 g/dL (6.6-8.7)
[2024-08-13 14:50] LABS: Lactic Sepsis W/Reflex 0.6 mmol/L (0.5-2.2)
[2024-08-13 14:52] LABS: Alcohol Level < 10 mg/dL (0-10)
[2024-08-13 15:02] LABS: Ammonia 15 umol/L (16-60)
[2024-08-13 15:30] LABS: Glucose Point of Care 60 mg/dL (70-110)
[2024-08-13 15:54] LABS: Glucose Point of Care 78 mg/dL (70-110)
[2024-08-13 16:03] LABS: ABG PCO2 44.9 mmHg (35-45); ABG PH Result 7.37 (7.35-7.45); Alveolar-Arterial Oxygen Gradi 3.9 mmHg (5-10); Arterial Blood Gas Hematocrit 29.5 % (42-52); Base Excess ABG 0.4 mmol/L (-2.0-2.0); Blood Gas Operator Identificat BROMA; Blood Gas Sample Site Brachial, right; Blood Gas Sample Type Arterial; Carboxyhemoglobin 2.3 %THgb (0.4-20.1); HCO3 ABG 25.9 mmol/L (22-26); HGB O2 Sat 88.8 % (95-100); Ionized Calcium Level - ABG 1.3 mmol/L (1.1-1.4); Methemoglobin 1.2 % (0.4-1.5); Oxygen Device ROOM AIR; PO2 ABG 64.9 mmHg (80.0-100.0); Potassium Level - ABG 5.2 mmol/L (3.5-5.0); Total Hemoglobin 9.6 g/dL (14-18)
--- NOTE | 2024-08-13 16:08 | PM.HP ---
Providers/Chief Complaint Primary Care Provider: Delio Salazar MD Chief Complaint: ams History of Present Illness Mal Gibbs is a 43 year old male with a past medical history significant for multiple comorbidities including ESRD, hypertension, COPD, pulmonary hypertension, dyslipidemia, and anemia of ESRD who presents to the emergency department from dialysis clinic with increased lethargy. Patient reports he was recently hospitalized in [facility] where his fistula required intervention. He currently has stitches in his fistula. He reportedly arrived at the dialysis center late today and dialysis was not performed. He was instead sent to the emergency department. Reports he has not received dialysis in around 2 weeks. In the emergency department, he was found to be very lethargic, nearly somnolent. He was found to have some hypoglycemia which was treated. Labs consistent with sequela of ESRD. Review of Systems Narrative: A complete review of systems was obtained and is negative except as stated in HPI. Medications/Allergies Home Medications ?Medication ?Instructions ?Recorded ?Confirmed ?Last Taken ?Type ferric citrate 210 mg iron tablet See Rx Instructions .Route .COMPLEX 11/03/21 08/13/24 08/13/24 History (Auryxia) aspirin 81 mg tablet,delayed 81 mg PO QAM 02/21/22 08/13/24 08/13/24 History release vit B,C-folic ac 800 mcg-zinc 12.5 1 tab PO QAM 10/01/22 08/13/24 08/13/24 History mg-selen-D3 2,000 unit-vit E tablet (RenaPlex-D) atorvastatin 40 mg tablet 40 mg PO BEDTIME 01/09/23 08/13/24 08/13/24 History carvedilol 25 mg tablet 37.5 mg PO Q12H 01/09/23 08/13/24 08/13/24 History hydralazine 100 mg tablet 100 mg PO Q8H 01/09/23 08/13/24 08/13/24 History minoxidil 2.5 mg tablet 10 mg PO TID 05/16/24 08/13/24 08/13/24 History sevelamer carbonate 800 mg tablet 1,600 mg PO TID 05/16/24 08/13/24 08/13/24 History Allergies Allergy/AdvReac Type Severity Reaction Status Date / Time spironolactone Allergy Intermediate facial Verified 08/12/24 11:38 swelling haloperidol (From Haldol) Allergy ADR-Irritab Verified 08/12/24 11:38 le ketorolac Allergy Unknown Verified 08/12/24 11:38 lisinopril Allergy ADR-Swelling Verified 08/12/24 11:38 of the Eye nifedipine Allergy KATERINY-Swell Verified 08/12/24 11:38 Lip/Tongue/Throat PFSH Acute PFSH: Medical History Dyslipidemia History of home oxygen therapy COPD (chronic obstructive pulmonary disease) Patient under care of multiple providers Umbilical hernia Atherosclerosis of coronary artery Stent and balloon angioplasty to proximal 1 OM branch Abdominal ascites history of intermittent paracentesis, transudative fluid; prior work up has included negative biopsy, ceruloplasmin level normal, low iron, high ferritin, normal TIBC, negative HIV, hepatitis panel negative, JESÚS/SCL 70/double-stranded DNA antibodies negative, Alpha-fetoprotein level unremarkable, nonalcoholic by history, has hepatomegaly and splenomegaly Congestive heart failure preserved ejection fraction History of cardiovascular stress test 07/2022 at [facility] perfusion imaging probably normal, no reversible defects, small fixed defect in apical anterior wall, EF 54%, nonischemic response to stress by EKG criteria Depression Epididymitis 06/2022 Pulmonary hypertension Uses bilevel positive airway pressure (BPAP) ventilation at home History of coronary angiogram 11/2021 - patent stent Inguinal hernia Chronic respiratory failure on home oxygen and bipap Nicotine dependence, cigarettes, with other nicotine-induced disorders Generalized anxiety disorder with panic attacks ESRD on dialysis Chronic abdominal pain COVID 05/25 Hypertensive emergency recurrent episodes Urethral stricture Pulmonary embolism 09/21 CTA inconclusive for very tiny peripheral LEFT lower lobe pulmonary artery sub segmental emboli versus poor opacification. Anemia chronic kidney disease Arteriovenous fistula for hemodialysis in place, secondary Degenerative disc disease, lumbar Hypertension uncontrolled Surgical History History of arteriovenous graft left upper extremity fistula, revision 07/2024 in [place] Stented coronary artery H/O hand surgery Amputation right 2&3 fingers 2017 History of adenoidectomy Family History Other Hypertension Social History Smoking and tobacco/nicotine status: current every day tobacco/nicotine user cigarettes Packs smoked per day: 1.5 Years cigarettes smoked: 21 [ Other cigarette details: started age 20, currently 0.5ppd ] Alcohol intake: never Substance/Drug Use: never Number of children: 3 Current occupational status: disabled Do you think of yourself as: Straight/Heterosexual Vitals/I&O/Wt Last Vital Signs Temp 97.8 F 08/13/24 13:58 Pulse 69 08/13/24 13:58 Resp 19 H 08/13/24 13:58 BP 136/77 08/13/24 13:58 Pulse Ox 97 08/13/24 13:58 O2 Del Method Room Air 08/13/24 13:58 Weight last 48 hrs Weight 92.986 kg Physical Exam Narrative: General: Patient is very lethargic but awakens. He is appropriate when wake. Head: Normocephalic. Atraumatic. EOM intact. Neck: No JVD. Cardiovascular: RRR. No gallops. No murmurs. Bilateral lower extremity edema present. Lungs: Breath sounds are slightly manage bilateral bases. No use of accessory muscles, no crackles or wheezes. Skin: No jaundice. No rashes. Fistula left arm with multiple stitches. There is some mild erythema. No sign of gross infection. Abdomen: Abdomen slightly distended. Not tender. Bowel sounds present. Extremities: No cyanosis or clubbing. Musculoskeletal: No swollen or erythematous joints. Neurological: Moves all 4 extremities. No myoclonus. Data 08/13/24 14:14 08/13/24 14:14 A&P Assessment and plan (1) Severe hypertension: (2) Congestive heart failure: (3) COPD (chronic obstructive pulmonary disease): Qualifiers: COPD type: chronic bronchitis Chronic bronchitis type: mixed simple and mucopurulent Qualified Code(s): J41.8 - Mixed simple and mucopurulent chronic bronchitis (4) Anemia in chronic kidney disease, on chronic dialysis: (5) Hyperkalemia: (6) End stage renal disease on dialysis: (7) Pulmonary hypertension: (8) History of arteriovenous graft: Plan Fluid overload End-stage renal disease Dialysis noncompliance Renal osteodystrophy Anemia of end-stage renal disease Hypervolemic hyponatremia Hyperkalemia - Strict I's and O's - Daily weights - Nephro consult for dialysis - Repeat labs in a.m. Hypoglycemia - Initiate hypoglycemia protocol Hypertension - Continue home medications Coronary artery disease - Continue statin and aspirin DVT prophylaxis: Heparin CODE STATUS: Full code PDMP PDMP Reviewed: Not Reviewed Attestations Medical Necessity Statement*: Patient presents with fluid overload in the setting of dialysis noncompliance with expected hospitalization not to cross 2 midnights for dialysis. Coding Level of Care Code Acute Code for Chg Fwd Diagnoses Severe hypertension I10 Congestive heart failure I50.9 Mixed simple and mucopurulent chronic bronchitis J41.8 COPD type: chronic bronchitis Chronic bronchitis type: mixed simple and mucopurulent Anemia in chronic kidney disease, on chronic dialysis N18.6; D63.1; Z99.2 Hyperkalemia E87.5 End stage renal disease on dialysis N18.6; Z99.2 Pulmonary hypertension I27.20 History of arteriovenous graft Z98.890
[2024-08-13 16:16] LABS: Glucose Point of Care 67 mg/dL (70-110)
[2024-08-13 16:38] LABS: Glucose Point of Care 65 mg/dL (70-110)
[2024-08-13 17:18] LABS: Glucose Point of Care 75 mg/dL (70-110)
[2024-08-13 18:01] LABS: Glucose Point of Care 93 mg/dL (70-110)
[2024-08-13] MEDS: carvedilol 25 mg Tablet 37.5 MG PO (18:37)
[2024-08-13] MEDS: hyDRALAzine 50 mg Tablet 100 MG PO (18:37)
[2024-08-13] MEDS: heparin 5,000 unit/mL INJ 1 mL 5000 UNIT SUBCUT (18:37)
[2024-08-13 20:17] LABS: Glucose Point of Care 90 mg/dL (70-110)
[2024-08-13] MEDS: atorvastatin 40 mg Tablet PO (20:32)
[2024-08-13] MEDS: minoxidil 10 mg Tablet PO (20:32)
[2024-08-13] MEDS: sevelamer 800 mg Tablet 1600 MG PO (20:32)
[2024-08-13 21:19] LABS: Glucose Point of Care 86 mg/dL (70-110)
[2024-08-13 21:59] LABS: Glucose Point of Care 87 mg/dL (70-110)
[2024-08-13] MEDS: dextrose 10% 1,000 ML 20 ML IV (22:00)
[2024-08-13 23:04] LABS: Glucose Point of Care 122 mg/dL (70-110)
[2024-08-13 23:58] LABS: Glucose Point of Care 84 mg/dL (70-110)
[2024-08-14] VITALS (8 sets, daily range): BP systolic 92–134; BP diastolic 47–69; PULSE 59–70; RESP 14–18; TEMP 36.3–36.8; O2SAT 92–97
[2024-08-14 01:01] LABS: Glucose Point of Care 83 mg/dL (70-110)
[2024-08-14] MEDS: hyDRALAzine 50 mg Tablet 100 MG PO ×2 (02:01→17:22)
[2024-08-14 02:05] LABS: Glucose Point of Care 80 mg/dL (70-110)
[2024-08-14] MEDS: acetaminophen 325 mg Tablet 650 MG PO (02:06)
[2024-08-14 03:09] LABS: Glucose Point of Care 99 mg/dL (70-110)
[2024-08-14 04:03] LABS: Glucose Point of Care 104 mg/dL (70-110)
[2024-08-14 04:21] LABS: Basophils # 0.1 10^3/uL (0.0-0.1); Basophils % 2.1 %; Eosinophils # 0.2 10^3/uL (0.0-0.8); Eosinophils % 4.6 %; Hematocrit 27.8 % (37-53); Lymphocytes # 0.5 10^3/uL (0.8-4.8); Lymphocytes % 9.5 %; Mean Corpuscular HGB Conc 31.3 g/dL (30-55); Mean Corpuscular Hemoglobin 27.8 pg (27-33); Mean Corpuscular Volume 88.8 fl (82-101); Mean Platelet Volume 10.5 fL (7.4-10.4); Monocytes # 0.5 10^3/uL (0.2-0.9); Monocytes % 10.5 %; Neutrophils # 3.47 10^3/uL (1.8-7.7); Neutrophils % 72.9 %; Nucleated Red Blood Cells % 0 %; Platelet Count 249 10^3/cmm (157-399); Red Blood Count 3.13 10^6/uL (3.85-5.65); Red Cell Distribution Width 16.6 % (12.1-15.1); White Blood Count 4.76 10^3/uL (3.29-11.43)
[2024-08-14 04:40] LABS: Alanine Aminotransferase 39 U/L (0-41); Albumin Level 2.2 g/dL (3.5-5.2); Alkaline Phosphatase 140 U/L (40-130); Anion Gap 19.7 (5-19); Aspartate Amino Transferase 57 U/L (0-40); Blood Urea Nitrogen 50 mg/dL (6-20); Carbon Dioxide 23 mmol/L (22-29); Chloride 92 mmol/L (98-107); Creatinine Clr Calc Pharmacy 10.0571; Globulin 3.6 g/dL (1.3-4.6); Glomerular Filtration Rate 4.7 mL/min (90-130); Glucose 95 mg/dL (65-115); Magnesium 2.2 mg/dL (1.7-2.3); Osmolality Calculated 281 mOsm/kg (285-295); Phosphorus 7.1 mg/dL (2.5-4.5); Potassium 5.7 mmol/L (3.5-5.1); Sodium 129 mmol/L (136-145); Total Bilirubin 0.2 mg/dL (0.15-1.2); Total Protein 5.8 g/dL (6.6-8.7)
[2024-08-14 05:06] LABS: Glucose Point of Care 100 mg/dL (70-110)
[2024-08-14] MEDS: carvedilol 25 mg Tablet 37.5 MG PO ×2 (05:21→17:22)
[2024-08-14] MEDS: aspirin 81 mg EC Tablet PO (05:21)
[2024-08-14 06:05] LABS: Glucose Point of Care 112 mg/dL (70-110)
[2024-08-14 06:14] LABS: Hepatitis C Virus Antibody Non-Reactive (Nonreactive)
[2024-08-14 06:24] LABS: Hepatitis B Core AB, Total Non-Reactive (Nonreactive); Hepatitis B Surface AB 46.8 (11.5-1000); Hepatitis B Surface Antigen Non-Reactive (Nonreactive)
[2024-08-14] MEDS: albumin 12.5 GM/50 ML VIAL IV ×3 (07:30→08:28)
[2024-08-14 07:35] LABS: Glucose Point of Care 93 mg/dL (70-110)
[2024-08-14 08:28] LABS: Glucose Point of Care 93 mg/dL (70-110)
--- NOTE | 2024-08-14 09:36 | PM.CONSULT ---
Providers/Reason For Consult Consulting Physician/Specialty*: kommana/Nephrology Reason for Consult*: ESRD Attending Physician: Caden Constantino MD Primary Care Provider: Delio Salazar MD History of Present Illness History of Present Illness Mal Gibbs is a 43 year old male Patient is a 43-year-old male with past medical history of multiple comorbidities including end-stage renal disease on TTS schedule, hypertension, COPD, pulmonary hypertension dyslipidemia anemia, CHF presented from the dialysis clinic due to increased lethargy. Recently he underwent fistulogram/revision at [facility]. Lab data reviewed, currently on 2 L O2 by nasal cannula. Review of Systems Narrative: negative Medications/Allergies Home Medications ?Medication ?Instructions ?Recorded ?Confirmed ?Last Taken ?Type ferric citrate 210 mg iron tablet See Rx Instructions .Route .COMPLEX 11/03/21 08/13/24 08/13/24 History (Auryxia) aspirin 81 mg tablet,delayed 81 mg PO QAM 02/21/22 08/13/24 08/13/24 History release vit B,C-folic ac 800 mcg-zinc 12.5 1 tab PO QAM 10/01/22 08/13/24 08/13/24 History mg-selen-D3 2,000 unit-vit E tablet (RenaPlex-D) atorvastatin 40 mg tablet 40 mg PO BEDTIME 01/09/23 08/13/24 08/13/24 History carvedilol 25 mg tablet 37.5 mg PO Q12H 01/09/23 08/13/24 08/13/24 History hydralazine 100 mg tablet 100 mg PO Q8H 01/09/23 08/13/24 08/13/24 History minoxidil 2.5 mg tablet 10 mg PO TID 05/16/24 08/13/24 08/13/24 History sevelamer carbonate 800 mg tablet 1,600 mg PO TID 05/16/24 08/13/24 08/13/24 History Allergies Allergy/AdvReac Type Severity Reaction Status Date / Time spironolactone Allergy Intermediate facial Verified 08/12/24 11:38 swelling haloperidol (From Haldol) Allergy ADR-Irritab Verified 08/12/24 11:38 le ketorolac Allergy Unknown Verified 08/12/24 11:38 lisinopril Allergy ADR-Swelling Verified 08/12/24 11:38 of the Eye nifedipine Allergy Seth Verified 08/12/24 11:38 Lip/Tongue/Throat Current Medications Generic Name Dose Route Start Last Admin Trade Name Freq PRN Reason Stop Dose Admin Acetaminophen 650 mg 08/13/24 17:49 08/14/24 02:06 Acetaminophen 325 Mg Tablet PO 650 mg Q6H PRN Administration Mild/Mod Pain Or Temp >/= 101 Aspirin 81 mg 08/14/24 06:00 08/14/24 05:21 Aspirin 81 Mg Ec Tablet PO 81 mg QAM ARTEM Administration Atorvastatin Calcium 40 mg 08/13/24 21:00 08/13/24 20:32 Atorvastatin 40 Mg Tablet PO 40 mg BEDTIME ARTEM Administration Carvedilol 37.5 mg 08/13/24 17:49 08/14/24 05:21 Carvedilol 25 Mg Tablet PO 37.5 mg Q12H ARTEM Administration Heparin Sodium (Porcine) 5,000 unit 08/13/24 17:49 08/14/24 05:26 Heparin 5,000 Unit/Ml Inj 1 Ml SUBCUT Not Given Q12H ARTEM Hydralazine HCl 100 mg 08/13/24 18:00 08/14/24 02:01 Hydralazine 50 Mg Tablet PO 100 mg Q8H ARTEM Administration Albumin Human 12.5 gm in 50 mls @ 60 mls/hr 08/13/24 18:56 08/14/24 08:28 Albumin IV 120 mls/hr PRN PRN Administration Hypotension and/or symptomatic Dextrose 1,000 mls @ 20 mls/hr 08/13/24 22:00 08/14/24 00:03 D10w IV 20 mls/hr .Q24H ARTEM Infusion Minoxidil 10 mg 08/13/24 21:00 08/13/24 20:32 Minoxidil 10 Mg Tablet PO 10 mg TID ARTEM Administration Sevelamer Carbonate 1,600 mg 08/13/24 21:00 08/13/24 20:32 Sevelamer 800 Mg Tablet PO 1,600 mg TID ARTEM Administration PFSH Acute PFSH: Medical History Dyslipidemia History of home oxygen therapy COPD (chronic obstructive pulmonary disease) Patient under care of multiple providers Umbilical hernia Atherosclerosis of coronary artery Stent and balloon angioplasty to proximal 1 OM branch Abdominal ascites history of intermittent paracentesis, transudative fluid; prior work up has included negative biopsy, ceruloplasmin level normal, low iron, high ferritin, normal TIBC, negative HIV, hepatitis panel negative, JESÚS/SCL 70/double-stranded DNA antibodies negative, Alpha-fetoprotein level unremarkable, nonalcoholic by history, has hepatomegaly and splenomegaly Congestive heart failure preserved ejection fraction History of cardiovascular stress test 07/2022 at [facility] perfusion imaging probably normal, no reversible defects, small fixed defect in apical anterior wall, EF 54%, nonischemic response to stress by EKG criteria Depression Epididymitis 06/2022 Pulmonary hypertension Uses bilevel positive airway pressure (BPAP) ventilation at home History of coronary angiogram 11/2021 - patent stent Inguinal hernia Chronic respiratory failure on home oxygen and bipap Nicotine dependence, cigarettes, with other nicotine-induced disorders Generalized anxiety disorder with panic attacks ESRD on dialysis Chronic abdominal pain COVID 05/25 Hypertensive emergency recurrent episodes Urethral stricture Pulmonary embolism 09/21 CTA inconclusive for very tiny peripheral LEFT lower lobe pulmonary artery sub segmental emboli versus poor opacification. Anemia chronic kidney disease Arteriovenous fistula for hemodialysis in place, secondary Degenerative disc disease, lumbar Hypertension uncontrolled Surgical History History of arteriovenous graft left upper extremity fistula, revision 07/2024 in [place] Stented coronary artery H/O hand surgery Amputation right 2&3 fingers 2017 History of adenoidectomy Family History Other Hypertension Social History Smoking and tobacco/nicotine status: current every day tobacco/nicotine user cigarettes Packs smoked per day: 1.5 Years cigarettes smoked: 21 [ Other cigarette details: started age 20, currently 0.5ppd ] Alcohol intake: never Substance/Drug Use: never Number of children: 3 Current occupational status: disabled Do you think of yourself as: Straight/Heterosexual Vitals/I&O/Wt Last Vital Signs Temp 98.2 F 08/14/24 07:38 Pulse 59 L 08/14/24 07:38 Resp 18 08/14/24 07:38 BP 92/47 08/14/24 07:38 Pulse Ox 97 08/14/24 07:37 O2 Del Method Nasal Cannula 08/14/24 07:37 O2 Flow Rate 2 08/14/24 08:00 08/13/24 08/14/24 08/14/24 22:59 06:59 14:59 Intake Total 260.667 / 260.667 100 / 100 Balance 260.667 / 260.667 100 / 100 Weight last 48 hrs Weight 97.749 kg Weight 97.976 kg Weight 92.986 kg Physical Exam Narrative: lethargic PEERLA S1S2 RRR per report Lungs clear per report Abd - soft , no tender no edema Data 08/14/24 04:07 08/14/24 04:07 A&P Assessment and plan (1) End stage renal disease on dialysis: Plan 1. End-stage renal disease: On TTS schedule, missed HD yesterday, plan for HD today and ultrafiltration as tolerated 2. Recent AVF revision, 3.Acute on chronic resp failure - multifactorial , HD as above 4. Anemia : TREY with HD 5. Hyperkalemia , Low K dialysate with HD , Pt evaluated using audiovisual cart. Time spwnt 45 min PDMP PDMP Reviewed: Not Reviewed Consult Attestations Medical Necessity Statement: per howie Coding Level of Care Code Acute Code for Chg Fwd Diagnoses End stage renal disease on dialysis N18.6; Z99.2
[2024-08-14 10:13] LABS: Glucose Point of Care 89 mg/dL (70-110)
[2024-08-14 11:25] LABS: Glucose Point of Care 96 mg/dL (70-110)
[2024-08-14 12:44] LABS: Glucose Point of Care 88 mg/dL (70-110)
[2024-08-14 14:17] LABS: Glucose Point of Care 87 mg/dL (70-110)
[2024-08-14] MEDS: minoxidil 10 mg Tablet PO (15:28)
[2024-08-14] MEDS: sevelamer 800 mg Tablet 1600 MG PO (15:28)
[2024-08-14 16:03] LABS: Glucose Point of Care 123 mg/dL (70-110)
[2024-08-14 16:49] LABS: Glucose Point of Care 118 mg/dL (70-110)
--- NOTE | 2024-08-14 16:53 | PM.DCS ---
Discharge Providers Date of Admission: 08/13/24 16:10 Date of Discharge: August 14, 2024 Attending Provider at Admission: Caden Constantino MD Attending Provider at Discharge: Caden Constantino MD Primary Care Provider: Delio Salazar MD Diagnoses at Discharge Discharge Diagnosis (1) End stage renal disease on dialysis: Status: Acute Reason for Visit Reason for Visit: [facility] Hospital Course Hospital Course Mal Gibbs is a 43-year-old male with past medical history significant for multiple comorbidities who presented from dialysis clinic with volume overload, found to have hypervolemia in the setting of dialysis noncompliance and hypoglycemia. Nephrology was consulted and underwent dialysis. His hypoglycemia resolved. He was discharged home in stable condition. He is to continue his regularly scheduled dialysis and follow-up with his primary provider within 1 week. Physical Exam Narrative: General: Patient is awake. Undergoing dialysis. Conversational. Neck: No JVD. Cardiovascular: RRR. No gallops. No murmurs. 2+ pitting edema bilateral lower extremities. Lungs: Clear to auscultation. Nonlabored. Skin: No jaundice. No rashes. Abdomen: Normal bowel sounds, abdomen soft and nontender. Extremities: No cyanosis or clubbing. Old finger amputations. Musculoskeletal: No erythematous joints. Neurological: Moves all 4 extremities. No myoclonus. Discharge Data Studies Completed and Pending Completed Studies During Hospitalization Category Date Time Status CT head wo con* [id number] Stat Cat Scan 08/13/24 14:03 Completed XR chest 1V portable [id number] Stat Exams 08/13/24 14:03 Completed Radiology Impressions Chest X-Ray 08/13/24 14:03 IMPRESSION: No acute findings. Head CT 08/13/24 14:03 IMPRESSION: No acute intracranial abnormality. Laboratory Results WBC 4.76 10^3/uL (3.29-11.43) 08/14/24 04:07 RBC 3.13 10^6/uL (3.85-5.65) L 08/14/24 04:07 Hgb 8.70 g/dL (11.27-16.99) L 08/14/24 04:07 Hct 27.8 % (37-53) L 08/14/24 04:07 MCV 88.8 fl (82-101) 08/14/24 04:07 MCH 27.8 pg (27-33) 08/14/24 04:07 MCHC 31.3 g/dL (30-55) 08/14/24 04:07 RDW 16.6 % (12.1-15.1) H 08/14/24 04:07 Plt Count 249 10^3/cmm (157-399) 08/14/24 04:07 MPV 10.5 fL (7.4-10.4) H 08/14/24 04:07 Neut % (Auto) 72.9 % 08/14/24 04:07 Lymph % (Auto) 9.5 % 08/14/24 04:07 Bradford % (Auto) 10.5 % 08/14/24 04:07 Eos % (Auto) 4.6 % 08/14/24 04:07 Baso % (Auto) 2.1 % 08/14/24 04:07 Neut # (Auto) 3.47 10^3/uL (1.8-7.7) 08/14/24 04:07 Lymph # (Auto) 0.5 10^3/uL (0.8-4.8) L 08/14/24 04:07 Bradford # (Auto) 0.5 10^3/uL (0.2-0.9) 08/14/24 04:07 Eos # (Auto) 0.2 10^3/uL (0.0-0.8) 08/14/24 04:07 Baso # (Auto) 0.1 10^3/uL (0.0-0.1) 08/14/24 04:07 Nucleated RBC % (auto) 0 % 08/14/24 04:07 Nucleated RBCs # 0.0 /100WBC 08/14/24 04:07 PT 15.70 SECONDS (12.1-14.9) H 08/13/24 14:14 INR 1.17 (0.8-1.2) 08/13/24 14:14 APTT 45.9 SECONDS (23.9-36.7) H 08/13/24 14:14 Specimen Type Arterial 08/13/24 15:50 Sample Site Brachial, right 08/13/24 15:50 ABG pH 7.37 (7.35-7.45) 08/13/24 15:50 ABG pCO2 44.9 mmHg (35-45) 08/13/24 15:50 ABG pO2 64.9 mmHg (80.0-100.0) L 08/13/24 15:50 ABG HCO3 25.9 mmol/L (22-26) 08/13/24 15:50 ABG O2 Saturation 92.0 08/13/24 15:50 ABG Base Excess 0.4 mmol/L (-2.0-2.0) 08/13/24 15:50 Alexei Test N/a 08/13/24 15:50 A-a O2 Gradient 3.9 mmHg (5-10) L 08/13/24 15:50 Hematocrit 29.5 % (42-52) L 08/13/24 15:50 Hgb O2 Saturation 88.8 % (95-100) L 08/13/24 15:50 Carboxyhemoglobin 2.3 %THgb (0.4-20.1) 08/13/24 15:50 Methemoglobin 1.2 % (0.4-1.5) 08/13/24 15:50 Total Hemoglobin 9.6 g/dL (14-18) L 08/13/24 15:50 Sodium 126.0 mmol/L (131-143) L 08/13/24 15:50 Potassium 5.2 mmol/L (3.5-5.0) H 08/13/24 15:50 Glucose 57.0 mg/dL (70-115) L 08/13/24 15:50 Ionized Calcium 1.3 mmol/L (1.1-1.4) 08/13/24 15:50 O2 Delivery Device Room air 08/13/24 15:50 Felt Hat Pouncing Operator Hand ID Broma 08/13/24 15:50 Sodium 129 mmol/L (136-145) L 08/14/24 04:07 Potassium 5.7 mmol/L (3.5-5.1) H 08/14/24 04:07 Chloride 92 mmol/L (98-107) L 08/14/24 04:07 Carbon Dioxide 23 mmol/L (22-29) 08/14/24 04:07 Anion Gap 19.7 (5-19) H 08/14/24 04:07 BUN 50 mg/dL (6-20) H 08/14/24 04:07 Creatinine 11.9 mg/dL (0.7-1.2) H* 08/14/24 04:07 GFR Calculation 4.7 mL/min (90-130) L 08/14/24 04:07 Glucose 95 mg/dL (65-115) 08/14/24 04:07 POC Glucose 118 mg/dL (70-110) H 08/14/24 16:46 Calculated Osmolality 281 mOsm/kg (285-295) L 08/14/24 04:07 Lactic Acid 0.6 mmol/L (0.5-2.2) 08/13/24 14:14 Calcium 9.0 mg/dL (8.5-10.5) 08/14/24 04:07 Phosphorus 7.1 mg/dL (2.5-4.5) H 08/14/24 04:07 Magnesium 2.2 mg/dL (1.7-2.3) 08/14/24 04:07 Total Bilirubin 0.2 mg/dL (0.15-1.2) 08/14/24 04:07 AST 57 U/L (0-40) H 08/14/24 04:07 ALT 39 U/L (0-41) 08/14/24 04:07 Alkaline Phosphatase 140 U/L (40-130) H 08/14/24 04:07 Ammonia 15 umol/L (16-60) L 08/13/24 14:14 Total Protein 5.8 g/dL (6.6-8.7) L 08/14/24 04:07 Albumin 2.2 g/dL (3.5-5.2) L 08/14/24 04:07 Globulin 3.6 g/dL (1.3-4.6) 08/14/24 04:07 Ethyl Alcohol < 10 mg/dL (0-10) 08/13/24 14:14 Hep Bs Antigen Non-reactive (Nonreactive) 08/14/24 04:07 Hep Bs Antibody 46.8 (11.5-1000) 08/14/24 04:07 Hep B Core Total Ab Non-reactive (Nonreactive) 08/14/24 04:07 Hepatitis C Antibody Non-reactive (Nonreactive) 08/14/24 04:07 Vitals Last Vital Signs Temp 97.9 F 08/14/24 15:38 Pulse 63 08/14/24 15:38 Resp 16 08/14/24 15:38 BP 127/69 08/14/24 15:38 Pulse Ox 92 08/14/24 15:38 O2 Del Method Nasal Cannula 08/14/24 15:38 O2 Flow Rate 2 08/14/24 08:00 Discharge Plan Discharge Patient Disposition: Home Condition: Stable Prescriptions: Continued Auryxia 210 mg iron Tablet See Rx Instructions .ROUTE .COMPLEX Rx Instructions: Take 420 mg (2 tablets) by mouth three times a day and 210mg (1 tablet) with snacks. aspirin 81 mg tablet,delayed release (DR/EC) 81 mg PO QAM Patient Comments: pt takes qhs on wednesdays RenaPlex-D 800 mcg-12.5 mg -2,000 unit tablet 1 tab PO QAM carvedilol 25 mg tablet 37.5 mg PO Q12H atorvastatin 40 mg tablet 40 mg PO BEDTIME hydralazine 100 mg tablet 100 mg PO Q8H minoxidil 2.5 mg tablet 10 mg PO TID sevelamer carbonate 800 mg tablet 1,600 mg PO TID Discharge Orders: Discharge Order (Routine); Ordered 08/14/24 Ordered By: Caden Constantino Referrals: [facility] [place] - [Outside] Delio Salazar MD [Primary Care Provider] - 4-7 days (We have notified your physician's clinic of the need for a follow-up appointment to be scheduled. If you have not heard from them within the next 2 business days, please call them directly. ) Discharge Diet: Advance as tolerated and Usual diet Discharge Activity: Resume usual activity and Increase activity as tolerated Patient Instructions: Dialysis Nutrition Plan (GEN), Hyperkalemia (GEN) Activity Restrictions/Additional Instructions: 1. Take medications as prescribed. 2. Continue regularly scheduled dialysis. Discharge Attestations Time Spent in Discharge Care*: greater than 30 min Status at Discharge: Cognitive status at discharge: cognitively intact, Behavioral status at discharge: cooperative, Quality Metrics Clinical Quality Measures [ No reported AMI, CVA or VTE this stay] Coding Level of Care Code Acute Code for Chg Fwd Diagnoses End stage renal disease on dialysis N18.6; Z99.2
== END 2024-08-14 18:00 | disposition home or self-care (01) ==
LOC: ER 16:12 → MEDSURG 16:37
PROVIDERS: Hospitalist; Admitting Provider Internal Medicine; Emergency Provider Emergency Medicine; PCP Family Medicine; Visit Provider Internal Medicine
DX: I13.11 Hypertensive heart and chronic kidney disease without heart failure, with stage 5 chronic kidney disease, or end stage renal disease (principal); N18.6 End stage renal disease; I50.30 Unspecified diastolic (congestive) heart failure; Z99.2 Dependence on renal dialysis; D63.1 Anemia in chronic kidney disease; J44.9 Chronic obstructive pulmonary disease, unspecified; I27.20 Pulmonary hypertension, unspecified; Z79.82 Long term (current) use of aspirin; I25.10 Atherosclerotic heart disease of native coronary artery without angina pectoris; F17.210 Nicotine dependence, cigarettes, uncomplicated; Z99.81 Dependence on supplemental oxygen; G47.33 Obstructive sleep apnea (adult) (pediatric); J96.10 Chronic respiratory failure, unspecified whether with hypoxia or hypercapnia; E87.5 Hyperkalemia; E78.5 Hyperlipidemia, unspecified; Z86.711 Personal history of pulmonary embolism; J96.20 Acute and chronic respiratory failure, unspecified whether with hypoxia or hypercapnia
CPT/HCPCS: 36415; 36416; 70450; 71045; 80051; 80053; 80307; 82140; 82330; 82805; 82962; 83605; 83735; 84100; 85025; 85610; 85730; 86704; 86706; 86803; 87340; 90935; 93005; 96360; 96372; 99285; G0378; J1644; J9999; P9047; Q3014

== ENCOUNTER 2024-08-21 20:02 | Inpatient (IN) | payer MEDICARE, MEDICAID, SELFPAY ==
[2024-08-21 20:15] VITALS: BP 119/60; PULSE 67; RESP 20; TEMP 36.6; O2SAT 97
[2024-08-21 20:18] LABS: Glucose Point of Care 66 mg/dL (70-110)
[2024-08-21 20:25] VITALS: PULSE 66
--- NOTE | 2024-08-21 20:25 | XRR_ITS ---
PROCEDURE INFORMATION: Exam: XR Chest Exam date and time: 08/21/2024 9:09 PM Age: 43 years old Clinical indication: Shortness of breath; Prior surgery; Surgery date: 6+ months; Surgery type: Cardiac stent; Additional info: SOB TECHNIQUE: Imaging protocol: Radiologic exam of the chest. Views: 1 view. COMPARISON: CR (CHEST, ) 08/13/2024 2:23 PM FINDINGS: Lungs: Cardiac silhouette size, and vascularity are somewhat accentuated, likely related to poor inspiration/expansion however clinical correlation for mild CHF should be obtained. Upper lungs are clear. Lung bases are suboptimally assessed however there is a small new patchy opacity in lateral right lung base. Increasing retrocardiac opacity with silhouetting of left hemidiaphragm is also noted. Findings are suspicious for bibasilar pneumonia. Calcified pulmonary granulomas are again noted.. Pleural spaces: Probable small left pleural effusion. No pneumothorax. Heart/Mediastinum: As above. Bones/joints: No acute osseous findings. Soft tissues: Multiple discrete high-density foci projecting over the right shoulder/axillary region may represent soft tissue contaminants or other artifacts and clinical correlation is needed. Other findings: Single view was submitted. XR/XR chest 1V portable [id number] IMPRESSION: 1. Accentuated cardiac silhouette size and vascularity. See discussion above. 2. New bilateral basilar patchy opacities. Probable small left pleural effusion. See discussion above. Clinical correlation follow-up exam should be obtained. 3. Scattered high-density foci projecting over the right shoulder/axillary region as described.
--- NOTE | 2024-08-21 20:42 | CTR_ITS ---
PROCEDURE INFORMATION: Exam: CT Left Lower Extremity With Contrast, Knee Exam date and time: 08/21/2024 9:06 PM Age: 43 years old Clinical indication: Swelling or effusion of joint; Left; C/O knee pain with diffuse swelling and skin thickening. ; Additional info: Concerns for joint space infection TECHNIQUE: Imaging protocol: CT of the left lower extremity with intravenous contrast was performed. Exam focused on the knee. Radiation optimization: All CT scans at this facility use at least one of these dose optimization techniques: automated exposure control; mA and/or kV adjustment per patient size (includes targeted exams where dose is matched to clinical indication); or iterative reconstruction. Contrast material: OMNI 350; Contrast volume: 70 ml; Contrast route: INTRAVENOUS (IV); COMPARISON: CR XR knee LT 3V* [id number] 12/01/2021 12:04 PM RADIATION DOSE METRICS: Total DLP (mGy-cm): 367.62 FINDINGS: Bones/joints: Images were obtained from the left distal femur through the proximal tibia fibula. No acute fracture or dislocation. No bony erosions or periosteal changes to suggest acute osteomyelitis. Well maintained joint spaces. No significant joint effusion. No obvious increased synovial enhancement/thickening. Soft tissues: Extensive subcutaneous soft tissue edema. No soft tissue gas or discrete drainable fluid collection/abscess. Small amount of superficial fascial fluid is present. No deep intramuscular collection/hematoma or deep fascial plane fluid to suggest aggressive process such as necrotizing fasciitis. However clinical correlation and follow-up should be obtained. No Yeager's cyst. Vasculature: Extensive arterial calcifications with no obvious large branch arterial occlusion. Deep venous luminal assessment could not be obtained due to early bolus timing. Early enhancement of subcutaneous venous varicosities could be seen in the setting of hyperemia. CT/CT knee LT w con [id number] IMPRESSION: 1. Subcutaneous soft tissue edema, likely on the basis of cellulitis. Third spacing/anasarca and lymphedema may also be considered. No soft tissue gas, obvious drainable fluid collections or acute osseous findings. 2. No significant knee joint effusion or osseous regional erosions and therefore septic arthritis is highly unlikely.
--- NOTE | 2024-08-21 20:43 | PM.HP ---
Providers/Chief Complaint Admitting Physician: Tiarra Villegas MD Primary Care Provider: Delio Salazar MD Chief Complaint: fluid volume overload Room 259 History of Present Illness Mal Gibbs is a 43 year old male with a past medical history of end-stage renal disease on dialysis, history of COPD, diastolic CHF, pulm hypertension, hypertension, history of smoking, anemia, noncompliance, who presents to [facility] due to shortness of breath, edema, anasarca, left knee pain. Patient was transferred from [facility], patient tells me that he missed dialysis on Thursday, he has been developing shortness of breath, increased edema bilateral extremities, abdominal edema, scrotal edema, feeling short of breath, denies any fevers, no chills, no nausea, no vomiting, no chest pain, no cough, he is gained about 16 pounds he tells me, he is also due for a paracentesis tomorrow he tells me. He tells me also his left knee has been bothering him, he was admitted in [place], he tells me he had arthrocentesis and they told him he had a joint space infection so they put him on oral antibiotics? He does complain of severe left knee pain, does have a umbilical hernia, no pain complaints, reducible, during our conversation he appears to be in mild to moderate respiratory distress, he sitting up leaning forward, with tachypnea, crackles in all lung cantu, nasal flaring, intercostal retractions suprasternal retractions, uncomfortable due to anasarca, abdominal wall edema, Review of Systems Const: Reports: fatigue and malaise; Denies: fever(s) or chills Card: Denies: chest pain Resp: Reports: dyspnea; Denies: non-productive cough GI: Denies: abdominal pain : Denies: flank pain Neuro: Denies: headache(s), numbness in extremities, weakness in extremities or dizziness Medications/Allergies Home Medications ?Medication ?Instructions ?Recorded ?Confirmed ?Last Taken ?Type ferric citrate 210 mg iron tablet See Rx Instructions .Route .COMPLEX 11/03/21 08/13/24 08/13/24 History (Auryxia) aspirin 81 mg tablet,delayed 81 mg PO QAM 02/21/22 08/13/24 08/13/24 History release vit B,C-folic ac 800 mcg-zinc 12.5 1 tab PO QAM 10/01/22 08/13/24 08/13/24 History mg-selen-D3 2,000 unit-vit E tablet (RenaPlex-D) atorvastatin 40 mg tablet 40 mg PO BEDTIME 01/09/23 08/13/24 08/13/24 History carvedilol 25 mg tablet 37.5 mg PO Q12H 01/09/23 08/13/24 08/13/24 History hydralazine 100 mg tablet 100 mg PO Q8H 01/09/23 08/13/24 08/13/24 History minoxidil 2.5 mg tablet 10 mg PO TID 05/16/24 08/13/24 08/13/24 History sevelamer carbonate 800 mg tablet 1,600 mg PO TID 05/16/24 08/13/24 08/13/24 History Allergies Allergy/AdvReac Type Severity Reaction Status Date / Time spironolactone Allergy Intermediate facial Verified 08/12/24 11:38 swelling haloperidol (From Haldol) Allergy ADR-Irritab Verified 08/12/24 11:38 le ketorolac Allergy Unknown Verified 08/12/24 11:38 lisinopril Allergy ADR-Swelling Verified 08/12/24 11:38 of the Eye nifedipine Allergy ALGY-Swell Verified 08/12/24 11:38 Lip/Tongue/Throat PFSH Acute PFSH: Medical History Dyslipidemia History of home oxygen therapy COPD (chronic obstructive pulmonary disease) Patient under care of multiple providers Umbilical hernia Atherosclerosis of coronary artery Stent and balloon angioplasty to proximal 1 OM branch Abdominal ascites history of intermittent paracentesis, transudative fluid; prior work up has included negative biopsy, ceruloplasmin level normal, low iron, high ferritin, normal TIBC, negative HIV, hepatitis panel negative, JESÚS/SCL 70/double-stranded DNA antibodies negative, Alpha-fetoprotein level unremarkable, nonalcoholic by history, has hepatomegaly and splenomegaly Congestive heart failure preserved ejection fraction History of cardiovascular stress test 07/[address] [facility] perfusion imaging probably normal, no reversible defects, small fixed defect in apical anterior wall, EF 54%, nonischemic response to stress by EKG criteria Depression Epididymitis 06/2022 Pulmonary hypertension Uses bilevel positive airway pressure (BPAP) ventilation at home History of coronary angiogram 11/2021 - patent stent Inguinal hernia Chronic respiratory failure on home oxygen and bipap Nicotine dependence, cigarettes, with other nicotine-induced disorders Generalized anxiety disorder with panic attacks ESRD on dialysis Chronic abdominal pain COVID 05/25 Hypertensive emergency recurrent episodes Urethral stricture Pulmonary embolism 09/21 CTA inconclusive for very tiny peripheral LEFT lower lobe pulmonary artery sub segmental emboli versus poor opacification. Anemia chronic kidney disease Arteriovenous fistula for hemodialysis in place, secondary Degenerative disc disease, lumbar Hypertension uncontrolled Surgical History History of arteriovenous graft left upper extremity fistula, revision 07/2024 in [place] Stented coronary artery H/O hand surgery Amputation right 2&3 fingers 2017 History of adenoidectomy Family History Other Hypertension Social History Smoking and tobacco/nicotine status: current every day tobacco/nicotine user cigarettes Packs smoked per day: 1.5 Years cigarettes smoked: 21 [ Other cigarette details: started age 20, currently 0.5ppd ] Alcohol intake: never Substance/Drug Use: never Number of children: 3 Current occupational status: disabled Do you think of yourself as: Straight/Heterosexual Vitals/I&O/Wt Last Vital Signs Temp 97.8 F 08/21/24 20:15 Pulse 67 08/21/24 20:15 Resp 20 H 08/21/24 20:15 BP 119/60 08/21/24 20:15 Pulse Ox 97 08/21/24 20:15 O2 Del Method Nasal Cannula 08/21/24 20:15 O2 Flow Rate 3 08/21/24 20:15 Physical Exam Const: COMMON NORMALS: no acute distress and patient oriented x3 GENERAL APPEARANCE: frail appearing HENMT: COMMON NORMALS: normocephalic HEAD & SCALP: normocephalic Eye: COMMON NORMALS: Equal, round and reactive pupils present Neck/C-Spine: COMMON NORMALS: no JVD Resp: AUSCULTATION: crackles OTHER: Appears to be in mild to moderate respiratory distress, short breath with a few words, nasal flaring, intercostal retractions, tachypnea Cardio: COMMON NORMALS: no JVD, regular rate, regular rhythm, S1 normal heart sound present and S2 normal heart sound present RATE: regular rate RHYTHM: regular rhythm HEART SOUNDS: S1 normal heart sound present and S2 normal heart sound present GI: COMMON NORMALS: Normal to inspection, nondistended, normoactive bowel sounds present, Soft to palpation and non-tender OTHER: Generalized anasarca, abdominal wall edema, scrotal edema Extremity: COMMON NORMALS: no pedal edema NARRATIVE EXTREMITY EXAM: 3+ pitting edema Left knee, swelling, erythema, tenderness, pain with range of motion Neuro: COMMON NORMALS: patient oriented x3, CN's II-XII intact bilaterally and moves all extremities Psych: COMMON NORMALS: mental status grossly normal Sepsis: Is patient septic: No Focused sepsis exam performed: Yes Focused sepsis exam: DP PT pulses are palpable, no mottling lower extremities, cap refill less than 2 seconds Date exam was performed: 08/21/24 Time exam was performed: 20:52 Data 08/21/24 20:37 08/21/24 20:37 A&P Assessment and plan (1) Severe hypertension: (2) Congestive heart failure: (3) Atherosclerosis of coronary artery: Qualifiers: Associated angina: without angina Coronary Disease-Associated Artery/Lesion type: [place] artery [place] vs. transplanted heart: [place] heart Qualified Code(s): I25.10 - Atherosclerotic heart disease of [place] coronary artery without angina pectoris (4) History of arteriovenous graft: (5) Dyslipidemia: (6) Umbilical hernia: (7) Abdominal ascites: Qualifiers: Ascites type: other type Qualified Code(s): R18.8 - Other ascites (8) End stage renal disease on dialysis: (9) Anemia in chronic kidney disease, on chronic dialysis: (10) COPD (chronic obstructive pulmonary disease): Qualifiers: COPD type: chronic bronchitis Chronic bronchitis type: mixed simple and mucopurulent Qualified Code(s): J41.8 - Mixed simple and mucopurulent chronic bronchitis (11) Noncompliance: (12) Acute respiratory failure with hypoxia: (13) Fluid overload: Plan Acute hypoxic respiratory failure - Secondary to fluid overload, generalized anasarca, diastolic CHF exacerbation, missed dialysis -Evidence of acute respiratory distress due to fluid overload, requiring urgent dialysis -Plan - Nephrology consulted for dialysis tonight -Fluid restrictions of 1000 cc - CBC, CMP, TSH, BMP, troponin series History of abdominal ascites, consult IR tomorrow for paracentesis Hypertension - Resume patient's hydralazine, Coreg, minoxidil Acute on chronic anemia - Monitor hemoglobin, iron studies Hypoglycemia - Hypoglycemia protocol History of noncompliance, encourage compliance Complaints of left knee pain? - Patient apparently had a workup in [place], with arthrocentesis with evidence of infection - However was discharged on p.o. antibiotics? - Complaints of left knee pain - ESR, CRP, Pro-Lonny, blood cultures, CT left knee with IV contrast Full code Heparin for DVT prophylaxis PDMP PDMP Reviewed: Not Reviewed Attestations Medical Necessity Statement*: Patient requires hospitalization, inpatient, greater than 2 midnights for acute hypoxic respiratory failure sec to fluid overload requiring urgent dialysis, hyperglycemia, hypertension Diagnoses Severe hypertension I10 Congestive heart failure I50.9 Atherosclerosis of [place] coronary artery of [place] heart without angina pectoris I25.10 Associated angina: without angina Coronary Disease-Associated Artery/Lesion type: [place] artery [place] vs. transplanted heart: [place] heart History of arteriovenous graft Z98.890 Dyslipidemia E78.5 Umbilical hernia K42.9 Other ascites R18.8 Ascites type: other type End stage renal disease on dialysis N18.6; Z99.2 Anemia in chronic kidney disease, on chronic dialysis N18.6; D63.1; Z99.2 Mixed simple and mucopurulent chronic bronchitis J41.8 COPD type: chronic bronchitis Chronic bronchitis type: mixed simple and mucopurulent Noncompliance Z91.199 Acute respiratory failure with hypoxia J96.01 Fluid overload E87.70
[2024-08-21 20:45] VITALS: O2SAT 99
[2024-08-21 20:47] LABS: Basophils # 0.1 10^3/uL (0.0-0.1); Eosinophils # 0.4 10^3/uL (0.0-0.8); Eosinophils % 9.2 %; Hematocrit 28.7 % (37-53); Lymphocytes # 0.7 10^3/uL (0.8-4.8); Lymphocytes % 17.1 %; Mean Corpuscular HGB Conc 30.3 g/dL (30-55); Mean Corpuscular Hemoglobin 27.8 pg (27-33); Mean Corpuscular Volume 91.7 fl (82-101); Mean Platelet Volume 9.8 fL (7.4-10.4); Monocytes # 0.4 10^3/uL (0.2-0.9); Monocytes % 10.2 %; Neutrophils # 2.47 10^3/uL (1.8-7.7); Neutrophils % 61.3 %; Nucleated Red Blood Cells % 0 %; Platelet Count 261 10^3/cmm (157-399); Red Blood Count 3.13 10^6/uL (3.85-5.65); Red Cell Distribution Width 18.4 % (12.1-15.1); White Blood Count 4.03 10^3/uL (3.29-11.43)
[2024-08-21 20:49] LABS: Erythrocyte Sedimentation Rate 58 mm/hr (0-10)
[2024-08-21] MEDS: morphine 4 mg/mL SDV 1 mL 2 MG IVP (20:50)
[2024-08-21] MEDS: pantoprazole 40 mg SDV IVP (20:50)
--- NOTE | 2024-08-21 20:51 | ECG_ITS ---
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 Measurements Intervals [place] Rate: 69 P: 0 MD: 0 QRS: 104 QRSD: 120 T: 111 QT: 399 QTc: 430 Interpretive Statements UNCERTAIN REGULAR RHYTHM RIGHT AXIS DEVIATION [QRS AXIS > 100] ANTEROSEPTAL MYOCARDIAL INFARCTION , OF INDETERMINATE AGE [40+ ms Q WAVE IN V1-V4] Compared to ECG 08/13/2024 14:45:30 Myocardial infarct finding now present Sinus rhythm no longer present First degree AV block no longer present Intraventricular conduction delay no longer present T-wave abnormality no longer present Possible ischemia no longer present Electronically Signed On 08-22-2024 16:47:20 CDT by Ruba Hussein M.D. [id number]
[2024-08-21] MEDS: atorvastatin 40 mg Tablet PO (20:55)
[2024-08-21] MEDS: sevelamer 800 mg Tablet 1600 MG PO (20:55)
--- NOTE | 2024-08-21 21:00 | PM.CONSULT ---
Providers/Reason For Consult Consulting Physician/Specialty*: kommana/Nephrology Reason for Consult*: esrd Attending Physician: Tunde Umana MD Primary Care Provider: Delio Salazar MD History of Present Illness History of Present Illness Mal Gibbs is a 43 year old male Patient is a 43-year-old male with past medical history significant for end-stage renal disease, COPD, CHF, pulmonary hypertension chronic anemia, hypertension,, history of noncompliance with dialysis presented to the [facility] due to shortness of breath and worsening lower extremity edema. Patient missed dialysis on Thursday. Also complained of having knee pain. Lab data reviewed. Patient has pulmonary edema . Review of Systems Narrative: Other ROS negative Medications/Allergies Home Medications ?Medication ?Instructions ?Recorded ?Confirmed ?Last Taken ?Type ferric citrate 210 mg iron tablet See Rx Instructions .Route .COMPLEX 11/03/21 08/22/24 08/13/24 History (Auryxia) aspirin 81 mg tablet,delayed 81 mg PO QAM 02/21/22 08/22/24 08/13/24 History release vit B,C-folic ac 800 mcg-zinc 12.5 1 tab PO QAM 10/01/22 08/22/24 08/13/24 History mg-selen-D3 2,000 unit-vit E tablet (RenaPlex-D) atorvastatin 40 mg tablet 40 mg PO BEDTIME 01/09/23 08/22/24 08/13/24 History carvedilol 25 mg tablet 37.5 mg PO Q12H 01/09/23 08/22/24 08/13/24 History hydralazine 100 mg tablet 100 mg PO Q8H 01/09/23 08/22/24 08/13/24 History minoxidil 2.5 mg tablet 10 mg PO TID 05/16/24 08/22/24 08/13/24 History sevelamer carbonate 800 mg tablet 1,600 mg PO TID 05/16/24 08/22/24 08/13/24 History Allergies Allergy/AdvReac Type Severity Reaction Status Date / Time spironolactone Allergy Intermediate facial Verified 08/12/24 11:38 swelling haloperidol (From Haldol) Allergy ADR-Irritab Verified 08/12/24 11:38 le ketorolac Allergy Unknown Verified 08/12/24 11:38 lisinopril Allergy ADR-Swelling Verified 08/12/24 11:38 of the Eye nifedipine Allergy ALGY-Swell Verified 08/12/24 11:38 Lip/Tongue/Throat Current Medications Generic Name Dose Route Start Last Admin Trade Name Freq PRN Reason Stop Dose Admin Atorvastatin Calcium 40 mg 08/21/24 21:00 08/21/24 20:55 Atorvastatin 40 Mg Tablet PO 40 mg BEDTIME ARTEM Administration Morphine Sulfate 2 mg 08/21/24 20:25 08/21/24 20:50 Morphine 4 Mg/Ml Sdv 1 Ml IVP 2 mg Q4H PRN Administration SEVERE PAIN Pantoprazole Sodium 40 mg 08/21/24 20:30 08/21/24 20:50 Pantoprazole 40 Mg Sdv IVP 40 mg Q24H ARTEM Administration Sevelamer Carbonate 1,600 mg 08/21/24 21:00 08/21/24 20:55 Sevelamer 800 Mg Tablet PO 1,600 mg TID ARTEM Administration PFSH Acute PFSH: Medical History Dyslipidemia History of home oxygen therapy COPD (chronic obstructive pulmonary disease) Patient under care of multiple providers Umbilical hernia Atherosclerosis of coronary artery Stent and balloon angioplasty to proximal 1 OM branch Abdominal ascites history of intermittent paracentesis, transudative fluid; prior work up has included negative biopsy, ceruloplasmin level normal, low iron, high ferritin, normal TIBC, negative HIV, hepatitis panel negative, JESÚS/SCL 70/double-stranded DNA antibodies negative, Alpha-fetoprotein level unremarkable, nonalcoholic by history, has hepatomegaly and splenomegaly Congestive heart failure preserved ejection fraction History of cardiovascular stress test 07/2022 at [facility] perfusion imaging probably normal, no reversible defects, small fixed defect in apical anterior wall, EF 54%, nonischemic response to stress by EKG criteria Depression Epididymitis 06/2022 Pulmonary hypertension Uses bilevel positive airway pressure (BPAP) ventilation at home History of coronary angiogram 11/2021 - patent stent Inguinal hernia Chronic respiratory failure on home oxygen and bipap Nicotine dependence, cigarettes, with other nicotine-induced disorders Generalized anxiety disorder with panic attacks ESRD on dialysis Chronic abdominal pain COVID 05/25 Hypertensive emergency recurrent episodes Urethral stricture Pulmonary embolism 09/21 CTA inconclusive for very tiny peripheral LEFT lower lobe pulmonary artery sub segmental emboli versus poor opacification. Anemia chronic kidney disease Arteriovenous fistula for hemodialysis in place, secondary Degenerative disc disease, lumbar Hypertension uncontrolled Surgical History History of arteriovenous graft left upper extremity fistula, revision 07/2024 in [place] Stented coronary artery H/O hand surgery Amputation right 2&3 fingers 2017 History of adenoidectomy Family History Other Hypertension Social History Smoking and tobacco/nicotine status: current every day tobacco/nicotine user cigarettes Packs smoked per day: 1.5 Years cigarettes smoked: 21 [ Other cigarette details: started age 20, currently 0.5ppd ] Alcohol intake: never Substance/Drug Use: never Number of children: 3 Current occupational status: disabled Do you think of yourself as: Straight/Heterosexual Vitals/I&O/Wt Last Vital Signs Temp 97.8 F 08/21/24 20:15 Pulse 67 08/21/24 20:15 Resp 20 H 08/21/24 20:15 BP 119/60 08/21/24 20:15 Pulse Ox 97 08/21/24 20:15 O2 Del Method Nasal Cannula 08/21/24 20:15 O2 Flow Rate 3 08/21/24 20:15 Physical Exam Narrative: awake , alert PEERLA S1S2 RRR per report Lungs with radha crackles per report Abd soft , non tender + edema Data 08/22/24 02:29 08/22/24 02:29 A&P Assessment and plan (1) End stage renal disease on dialysis: Plan 1. End-stage renal disease: Emergent HD tonight dated respiratory distress and pulmonary edema, ultrafiltration as tolerated up to 4 L, may repeat HD tomorrow. Advised low-sodium diet and 1500 mL fluid restriction 2. Hypertension: Resumed home meds 3. Anemia: TREY with HD 4. History of diastolic CHF, now with anasarca and pulmonary edema, aggressive HD as above Patient evaluated using audiovisual cart. Time spent 40 minutes PDMP PDMP Reviewed: Not Reviewed Consult Attestations Medical Necessity Statement: per howie Coding Level of Care Code Acute Code for Chg Fwd Diagnoses End stage renal disease on dialysis N18.6; Z99.2
[2024-08-21 21:02] LABS: ABG PCO2 46.7 mmHg (35-45); Arterial Blood Gas Hematocrit 28.7 % (42-52); Base Excess ABG 3.4 mmol/L (-2.0-2.0); Blood Gas Allen Test Pos; Blood Gas Operator Identificat JDB; Blood Gas Sample Site Radial, right; Blood Gas Sample Type Arterial; HCO3 ABG 28.7 mmol/L (22-26); Oxygen Device NC
[2024-08-21 21:14] LABS: Procalcitonin 0.77 ng/mL (0-0.5); Thyroid Stimulating Hormone 5.26 uIU/mL (0.27-4.20)
[2024-08-21] MEDS: iohexol 350 mg/mL 500 mL Btl (per mL) IV (21:14)
[2024-08-21 21:28] LABS: Alanine Aminotransferase 11 U/L (0-41); Albumin Level 2.6 g/dL (3.5-5.2); Alkaline Phosphatase 116 U/L (40-130); Anion Gap 18.3 (5-19); Aspartate Amino Transferase 13 U/L (0-40); Blood Urea Nitrogen 23 mg/dL (6-20); C Reactive Protein 48.4 mg/L (0.0-4.9); Calcium 9.1 mg/dL (8.5-10.5); Carbon Dioxide 23 mmol/L (22-29); Chloride 94 mmol/L (98-107); Cholesterol 102 mg/dL (0-200); Globulin 3.2 g/dL (1.3-4.6); Glomerular Filtration Rate 8.7 mL/min (90-130); Glucose 63 mg/dL (65-115); HDL Cholesterol 30 mg/dL (60-100); LDL Cholesterol Calculated 54 mg/dL (50-129); Osmolality Calculated 272 mOsm/kg (285-295); Potassium 5.3 mmol/L (3.5-5.1); Sodium 130 mmol/L (136-145); Total Bilirubin 0.2 mg/dL (0.15-1.2); Total Protein 5.8 g/dL (6.6-8.7); Triglycerides 88 mg/dL (0-150)
[2024-08-21 21:31] LABS: Troponin(5th) Baseline 296 ng/L (0-15)
[2024-08-21 21:36] LABS: NT Pro B Type Natriuretic Pept > 70000 pg/mL (0-125)
[2024-08-21 22:00] VITALS: PULSE 66
[2024-08-21] MEDS: heparin 5,000 unit/mL INJ 1 mL IVP (22:03)
[2024-08-21] MEDS: heparin drip 25,000 UNIT/500 ML PREMIX 28 UNIT IV (22:04)
--- NOTE | 2024-08-21 22:14 | PC.NURSE ---
Patient had scheduled Sub Heparin 5000 units and Aspirin 81mg order for base Trop of 296. Patient refused both and was educated about the complications and high risk morbidity and mortality of not comply with our instructions. Patient understands and still refused. Dr. Umana was notified.
--- NOTE | 2024-08-21 22:27 | ECG_ITS ---
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 Measurements Intervals [place] Rate: 68 P: 0 RI: 0 QRS: 104 QRSD: 129 T: 123 QT: 440 QTc: 469 Interpretive Statements sinus rhythm with first-degreeAV block POSSIBLE RIGHT VENTRICULAR HYPERTROPHY [SOME/ALL OF: PROMINENT R IN V1, LATE TRANSITION, RAD, YULIYA, SSS] POSSIBLE ANTERIOR MYOCARDIAL INFARCTION , PROBABLY OLD [30 ms Q WAVE IN V3/V4, OR R < 0.2 mV IN V4] Compared to ECG 08/21/2024 20:51:45 Right-axis deviation no longer present Myocardial infarct finding still present Electronically Signed On 08-24-2024 20:00:24 CDT by Ruba Hussein M.D. [email or web address] [id number]
[2024-08-21 22:45] LABS: Lactic Sepsis W/Reflex 0.5 mmol/L (0.5-2.2)
[2024-08-21 22:47] LABS: Troponin 5 2HR Delta -8.5 ABS# (0-10)
[2024-08-21 22:48] LABS: Troponin 5 2HR 287.5 ng/L (0-15)
[2024-08-21 22:55] LABS: Partial Thromboplastin Time > 250.0 SECONDS (23.9-36.7)
[2024-08-21 23:52] VITALS: BP 151/77; PULSE 70; RESP 20; TEMP 36.8
[2024-08-22] VITALS (10 sets, daily range): BP systolic 113–129; BP diastolic 58–73; PULSE 63–91; RESP 16–20; TEMP 36.7–37.2; O2SAT 93–97
[2024-08-22] MEDS: morphine 4 mg/mL SDV 1 mL 2 MG IVP ×4 (00:34→19:46)
--- NOTE | 2024-08-22 02:27 | ECG_ITS ---
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 Measurements Intervals [place] Rate: 71 P: 0 ME: 0 QRS: 107 QRSD: 122 T: 107 QT: 473 QTc: 514 Interpretive Statements sinus rhythm with a first-degree AV block POSSIBLE RIGHT VENTRICULAR HYPERTROPHY [SOME/ALL OF: PROMINENT R IN V1, LATE TRANSITION, RAD, YULIYA, SSS] ANTEROSEPTAL MYOCARDIAL INFARCTION , OF INDETERMINATE AGE [40+ ms Q WAVE IN V1-V4] Compared to ECG 08/21/2024 23:42:35 No significant changes Electronically Signed On 08-24-2024 19:57:54 CDT by Ruba Hussein M.D. [email or web address] [id number]
[2024-08-22 02:54] LABS: Basophils # 0.1 10^3/uL (0.0-0.1); Eosinophils # 0.3 10^3/uL (0.0-0.8); Eosinophils % 10.6 %; Hematocrit 27.5 % (37-53); Lymphocytes # 0.5 10^3/uL (0.8-4.8); Lymphocytes % 16.6 %; Mean Corpuscular HGB Conc 30.9 g/dL (30-55); Mean Corpuscular Volume 90.5 fl (82-101); Monocytes # 0.5 10^3/uL (0.2-0.9); Monocytes % 15.2 %; Neutrophils # 1.67 10^3/uL (1.8-7.7); Neutrophils % 55.3 %; Nucleated Red Blood Cells % 0 %; Platelet Count 258 10^3/cmm (157-399); Red Blood Count 3.04 10^6/uL (3.85-5.65); Red Cell Distribution Width 18.3 % (12.1-15.1); White Blood Count 3.02 10^3/uL (3.29-11.43)
[2024-08-22 03:11] LABS: Partial Thromboplastin Time 41.9 SECONDS (23.9-36.7)
[2024-08-22 03:22] LABS: Alanine Aminotransferase 10 U/L (0-41); Albumin Level 2.6 g/dL (3.5-5.2); Alkaline Phosphatase 122 U/L (40-130); Anion Gap 13.5 (5-19); Aspartate Amino Transferase 12 U/L (0-40); Blood Urea Nitrogen 14 mg/dL (6-20); Calcium 8.8 mg/dL (8.5-10.5); Carbon Dioxide 28 mmol/L (22-29); Chloride 97 mmol/L (98-107); Creatinine Clr Calc Pharmacy 25.4891; Globulin 3.1 g/dL (1.3-4.6); Glomerular Filtration Rate 13.5 mL/min (90-130); Glucose 78 mg/dL (65-115); Osmolality Calculated 277 mOsm/kg (285-295); Potassium 4.5 mmol/L (3.5-5.1); Sodium 134 mmol/L (136-145); Total Bilirubin 0.2 mg/dL (0.15-1.2); Total Protein 5.7 g/dL (6.6-8.7)
[2024-08-22 03:24] LABS: Troponin 5 6HR Delta 1.6 ng/L (0-12)
[2024-08-22 03:26] LABS: Troponin 5 6HR 297.6 ng/L (0-15)
[2024-08-22 06:39] LABS: Glucose Point of Care 90 mg/dL (70-110)
[2024-08-22 09:00] LABS: Partial Thromboplastin Time 50.2 SECONDS (23.9-36.7)
--- NOTE | 2024-08-22 09:26 | US_ITS ---
WS: [id number] Exam: US scrotum [id number] Date/Time of Exam: 08/22/2024 10:32 AM Reason For Exam: pain Evaluation of the LEFT testicle shows no sign of mass or nodule. Normal echotexture. The LEFT testicle demonstrates normal vascularity without sign of torsion. The LEFT epididymis is enlarged and heterogeneous which might reflect epididymitis. No RIGHT testicle could be localized with the degree of certainty. The RIGHT scrotal compartment is filled with heterogeneous solid debris. Thick walled enlarged scrotum noted. US/US scrotum [id number] IMPRESSION: 1. The LEFT testicle is identified and shows no evidence of mass or torsion. 2. Findings in the LEFT epididymis that suggest epididymitis. 3. No normal RIGHT testicle identified. The RIGHT scrotal compartment is virtua lly filled with heterogeneous masslike density. Considerations would include la rge complex cystic intratesticular neoplasm, chronic hematocele or pyocele or h erniated mass into the RIGHT compartment. Similar findings identified on the pr ior study 09/18/2023. 4. Extensive scrotal enlargement with scrotal wall edema.
[2024-08-22] MEDS: minoxidil 10 mg Tablet PO ×3 (09:35→20:53)
[2024-08-22] MEDS: sevelamer 800 mg Tablet 1600 MG PO ×3 (09:35→20:53)
[2024-08-22] MEDS: hyDRALAzine 50 mg Tablet 100 MG PO ×2 (09:35→16:46)
[2024-08-22] MEDS: carvedilol 25 mg Tablet 37.5 MG PO ×2 (09:35→20:53)
--- NOTE | 2024-08-22 10:39 | P.PN_ITS ---
Subjective 2 Subjective: s/p HD last night Medications: Reviewed: Yes Vitals/I&O/Wt Last Vital Signs Temp 98.9 F 08/22/24 07:13 Pulse 91 08/22/24 07:13 Resp 17 08/22/24 07:13 BP 117/65 08/22/24 07:13 Pulse Ox 94 08/22/24 07:13 O2 Del Method Nasal Cannula 08/22/24 07:13 O2 Flow Rate 3 08/22/24 03:50 08/21/24 08/22/24 08/22/24 22:59 06:59 14:59 Intake Total 1006.6 / 1006.6 240 / 240 Output Total 4500 / 4500 Balance -3493.4 / -3493.4 240 / 240 Weight last 48 hrs Weight 99.609 kg Weight 102.6 kg Weight 99.609 kg Physical Exam 2 Narrative: awake , alert PEERLA S1S2 RRR per report Lungs with radha crackles per report Abd soft , non tender + edema Data 08/23/24 05:28 08/23/24 05:28 Micro: Microbiology 08/21/24 22:19 Blood Culture - Preliminary Blood SPECIMEN COLLECTED 08/21/24 22:14 Blood Culture - Preliminary Blood SPECIMEN COLLECTED A&P Assessment and plan (1) End stage renal disease on dialysis: Plan 1. End-stage renal disease: Emergent HD last night due to respiratory distress and pulmonary edema, ultrafiltration as tolerated up to 4 L, Advised low- sodium diet and 1500 mL fluid restriction 2. Hypertension: Resumed home meds 3. Anemia: TREY with HD 4. History of diastolic CHF, now with anasarca and pulmonary edema, aggressive HD as above Patient evaluated using audiovisual cart. Time spent 40 minutes PDMP PDMP Reviewed: Not Reviewed Attestations 2 Medical Necessity Statement*: per medicine Coding Level of Care Code Acute Code for Chg Fwd Diagnoses End stage renal disease on dialysis N18.6; Z99.2
[2024-08-22 11:14] LABS: Glucose Point of Care 92 mg/dL (70-110)
--- NOTE | 2024-08-22 11:58 | PM.PN ---
Vitals/I&O/Wt Last Vital Signs Temp 98.3 F 08/22/24 11:07 Pulse 68 08/22/24 11:07 Resp 17 08/22/24 11:07 BP 113/63 08/22/24 11:07 Pulse Ox 96 08/22/24 11:07 O2 Del Method Nasal Cannula 08/22/24 11:07 O2 Flow Rate 3 08/22/24 03:50 08/21/24 08/22/24 08/22/24 22:59 06:59 14:59 Intake Total 1006.6 / 1006.6 240 / 240 Output Total 4500 / 4500 Balance -3493.4 / -3493.4 240 / 240 Weight last 48 hrs Weight 99.609 kg Weight 102.6 kg Weight 99.609 kg Physical Exam Const: COMMON NORMALS: no acute distress and patient oriented x3 Resp: COMMON NORMALS: normal respiratory effort, No retractions and No use of accessory muscles AUSCULTATION: crackles and wheezes Cardio: COMMON NORMALS: regular rate, regular rhythm, S1 normal heart sound present and S2 normal heart sound present RATE: regular rate RHYTHM: regular rhythm HEART SOUNDS: S1 normal heart sound present and S2 normal heart sound present GI: COMMON NORMALS: Normal to inspection, nondistended, normoactive bowel sounds present and non-tender Extremity: NARRATIVE EXTREMITY EXAM: 2+ edema Neuro: COMMON NORMALS: patient oriented x3, CN's II-XII intact bilaterally and moves all extremities Psych: COMMON NORMALS: mental status grossly normal Data 08/22/24 02:29 08/22/24 02:29 Micro: Microbiology 08/21/24 22:19 Blood Culture - Preliminary Blood SPECIMEN COLLECTED 08/21/24 22:14 Blood Culture - Preliminary Blood SPECIMEN COLLECTED A&P Assessment and plan (1) Severe hypertension: (2) Congestive heart failure: (3) Atherosclerosis of coronary artery: Qualifiers: Associated angina: without angina Coronary Disease-Associated Artery/Lesion type: [place] artery [place] vs. transplanted heart: [place] heart Qualified Code(s): I25.10 - Atherosclerotic heart disease of [place] coronary artery without angina pectoris (4) History of arteriovenous graft: (5) Dyslipidemia: (6) Umbilical hernia: (7) Abdominal ascites: Qualifiers: Ascites type: other type Qualified Code(s): R18.8 - Other ascites (8) End stage renal disease on dialysis: (9) Anemia in chronic kidney disease, on chronic dialysis: (10) COPD (chronic obstructive pulmonary disease): Qualifiers: COPD type: chronic bronchitis Chronic bronchitis type: mixed simple and mucopurulent Qualified Code(s): J41.8 - Mixed simple and mucopurulent chronic bronchitis (11) Noncompliance: (12) Acute respiratory failure with hypoxia: (13) Fluid overload: Plan Acute hypoxic respiratory failure - Secondary to fluid overload, generalized anasarca, diastolic CHF exacerbation, missed dialysis -Evidence of acute respiratory distress due to fluid overload, requiring urgent dialysis -Plan - Nephrology consulted for dialysis - Continues to be fluid overloaded, continue dialysis NSTEMI - No chest pain complaints - Aspirin, statin, beta-patricia - Heparin drip - Cardiac echo - Cardiology consulted elevated crp, procal, WBC -blood culture - Does complain of scrotal pain, scrotal ultrasound - Will place on broad-spectrum antibiotic therapy History of abdominal ascites, consult IR tomorrow for paracentesis Hypertension - Resume patient's hydralazine, Coreg, minoxidil Acute on chronic anemia - Monitor hemoglobin, iron studies Hypoglycemia - Hypoglycemia protocol History of noncompliance, encourage compliance Complaints of left knee pain? Possible cellulitis left lower extremity - Patient apparently had a workup in [place], with arthrocentesis with evidence of infection - However was discharged on p.o. antibiotics? - Complaints of left knee pain -Does have erythema, left leg, possible cellulitis - CT knee CT/CT knee LT w con [id number] IMPRESSION: 1. Subcutaneous soft tissue edema, likely on the basis of cellulitis. Third spacing/anasarca and lymphedema may also be considered. No soft tissue gas, obvious drainable fluid collections or acute osseous findings. 2. No significant knee joint effusion or osseous regional erosions and therefore septic arthritis is highly unlikely. - Start IV antibiotics Full code Heparin for DVT prophylaxis PDMP PDMP Reviewed: Not Reviewed Attestations Medical Necessity Statement*: Patient requires hospitalization, for cellulitis, acute hypoxic respiratory failure from fluid overload, NSTEMI Diagnoses Severe hypertension I10 Congestive heart failure I50.9 Atherosclerosis of [place] coronary artery of [place] heart without angina pectoris I25.10 Associated angina: without angina Coronary Disease-Associated Artery/Lesion type: [place] artery [place] vs. transplanted heart: [place] heart History of arteriovenous graft Z98.890 Dyslipidemia E78.5 Umbilical hernia K42.9 Other ascites R18.8 Ascites type: other type End stage renal disease on dialysis N18.6; Z99.2 Anemia in chronic kidney disease, on chronic dialysis N18.6; D63.1; Z99.2 Mixed simple and mucopurulent chronic bronchitis J41.8 COPD type: chronic bronchitis Chronic bronchitis type: mixed simple and mucopurulent Noncompliance Z91.199 Acute respiratory failure with hypoxia J96.01 Fluid overload E87.70
--- NOTE | 2024-08-22 12:03 | CTR_ITS ---
PROCEDURE INFORMATION: Exam: CT Pelvis With Contrast Exam date and time: 08/22/2024 3:22 PM Age: 43 years old Clinical indication: Mass, lump, or swelling; Other: Bilateral testes; Additional info: Right testicular mass TECHNIQUE: Imaging protocol: Computed tomography of the pelvis with contrast. Radiation optimization: All CT scans at this facility use at least one of these dose optimization techniques: automated exposure control; mA and/or kV adjustment per patient size (includes targeted exams where dose is matched to clinical indication); or iterative reconstruction. Contrast material: OMNI 350; Contrast volume: 100 ml; Contrast route: INTRAVENOUS (IV); COMPARISON: CT abdomen pelvis w con* [id number] 10/15/2023 10:19 AM RADIATION DOSE METRICS: Total DLP (mGy-cm): 640.2 FINDINGS: Intestine: Visualized small and large intestine are unremarkable. Appendix: No evidence of appendicitis. Intraperitoneal space: Large volume ascites. Lymph nodes: Moderate bilateral inguinal adenopathy. The appearance is unchanged over several recent studies. Reproductive: See Soft tissues finding. Urinary bladder: Normal. No mass. Bones/joints: Diffusely increased bone density. Soft tissues: Umbilical hernia containing fluid. Large soft tissue calcification just posterior to the left hip. Moderate anasarca. Marked scrotal swelling. Only a left testicle visible. CT/CT pelvis w con* [id number] IMPRESSION: 1. Marked ascites and moderate anasarca. 2. Stable inguinal adenopathy.
--- NOTE | 2024-08-22 12:07 | PHA.VACGOAL ---
Vancomycin Goal - Goal Vancomycin Goal:: 10-15 mg/L Vancomycin Indication:: SSTI - Therapy Current therapy:: Pip/Tazo Day of therpy:: Day []of [] . Actual body weight (kg): 219 lb 9.6 oz - Data Labs: WBC 3.02 10^3/uL (3.29-11.43) L 08/22/24 02:29 RBC 3.04 10^6/uL (3.85-5.65) L 08/22/24 02:29 Hgb 8.50 g/dL (11.27-16.99) L 08/22/24 02:29 Hct 27.5 % (37-53) L 08/22/24 02:29 MCV 90.5 fl (82-101) 08/22/24 02:29 MCH 28.0 pg (27-33) 08/22/24 02: MCHC 30.9 g/dL (30-55) 08/22/24 02:29 RDW 18.3 % (12.1-15.1) H 08/22/24 02:29 Sodium 134 mmol/L (136-145) L 08/22/24 02:29 Potassium 4.5 mmol/L (3.5-5.1) 08/22/24 02:29 Chloride 97 mmol/L (98-107) L 08/22/24 02:29 Carbon Dioxide 28 mmol/L (22-29) 08/22/24 02:29 Anion Gap 13.5 (5-19) 08/22/24 02:29 BUN 14 mg/dL (6-20) 08/22/24 02:29 Creatinine 4.8 mg/dL (0.7-1.2) H 08/22/24 02:29 GFR Calculation 13.5 mL/min (90-130) L 08/22/24 02:29 Last dialysis session:: Last session (08/21/24) Treatment plan:: new consult Regimen:: LOADING DOSE OF 1500 MG X 1 PER DOSING PROTOCOL. PLAN FOR HD TOMORRW 08/22. WILL GET A LEVEL WITH [facility]. Follow up:: RANDOM LEVEL WITH [facility] BEFORE HD.
--- NOTE | 2024-08-22 13:22 | PICC.NOTE ---
Vascular access nurse consulted for US guided IV x 2. 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 20 gauge IVs started to right wrist and right forearm. Good blood return noted. Flushed without difficutly. Pt care nurse, Kelby notified.
[2024-08-22 13:55] LABS: INR 1.16 (0.8-1.2)
--- NOTE | 2024-08-22 14:35 | PC.NURSE ---
pt lost iv access, resumed heparin gtt @ 1323, ptt ordered for 193. dr notified and okayed
[2024-08-22] MEDS: iohexol 350 mg/mL 500 mL Btl (per mL) IV (15:37)
[2024-08-22] MEDS: vancomycin 1,500 MG/300 ML PIGGYBACK 200 MG IV (16:40)
[2024-08-22 16:55] LABS: Glucose Point of Care 91 mg/dL (70-110)
[2024-08-22 19:39] LABS: Partial Thromboplastin Time 62.6 SECONDS (23.9-36.7)
--- NOTE | 2024-08-22 19:43 | PM.CONSULT ---
Providers/Reason For Consult Consulting Physician/Specialty*: ANGELINE Hussein MD/cardiology Reason for Consult*: Patient with a congestive heart failure and elevated troponin T Requesting Physician: Dr. Umana Attending Physician: Tunde Umana MD Primary Care Provider: Delio Salazar MD History of Present Illness History of Present Illness This is a 43-year-old white male with a history of end-stage renal disease, on hemodialysis, he is admitted to the hospital with complaints of progressive shortness of breath, pain in the right groin and in the leg. He was found to have elevated BNP and troponin T. Cardiology consult is requested for further cardiac evaluation and recommendations. This patient is on hemodialysis for the last 8 years or so. He is being followed by the nephrology service in [place]. He also has a history of atherosclerotic heart diseas and had myocardial infarction x 2 followed by stent placements. Details are not available. Patient does not recall as to when these events occurred. He currently has no chest pain. His heart shortness of breath is somewhat better since the hospital admission. Denies any fever or chills. He has a history of uncontrolled blood pressure and dyslipidemia. According to him, the kidney failure was secondary to the uncontrolled blood pressure. No history for diabetes, CVA or peripheral artery disease. He also has a history of ascites and had multiple paracentesis in the past. He has a umbilical hernia. Also has markedly enlarged scrotum. He is known to have cirrhosis of the liver. But he denies any alcohol abuse. Has a history of smoking abuse, smokes half pack a day for the last 25 years or so. No other substance abuse He is getting hemodialysis 3 times a week. Scheduled for the next dialysis tomorrow. Review of Systems Narrative: CONSTITUTIONAL: No fever or chills. EYES: No blurring of vision or other visual disturbances lately. ENT: No hoarseness of voice, auditory disturbances or sore throat. CARDIOVASCULAR: As mentioned above. RESPIRATORY: No significant cough. GASTROINTESTINAL: Ascites, status post multiple paracentesis GENITOURINARY: Hemodialysis as mentioned above INTEGUMENTARY: No skin rashes or history of skin cancer. NEURO: No transient ischemic attacks or amaurosis. PSYCHIATRIC: No history of psychosis or major depression. HEMATOLOGIC: Chronic anemia ENDOCRINE: No history of polyuria or polydipsia. MUSCULOSKELETAL: No recent joint pain or swelling. ALLERGY/IMMUNOLOGY: As mentioned above. Medications/Allergies Home Medications ?Medication ?Instructions ?Recorded ?Confirmed ?Last Taken ?Type ferric citrate 210 mg iron tablet See Rx Instructions .Route .COMPLEX 11/03/21 08/22/24 08/13/24 History (Auryxia) aspirin 81 mg tablet,delayed 81 mg PO QAM 02/21/22 08/22/24 08/13/24 History release vit B,C-folic ac 800 mcg-zinc 12.5 1 tab PO QAM 10/01/22 08/22/24 08/13/24 History mg-selen-D3 2,000 unit-vit E tablet (RenaPlex-D) atorvastatin 40 mg tablet 40 mg PO BEDTIME 01/09/23 08/22/24 08/13/24 History carvedilol 25 mg tablet 37.5 mg PO Q12H 01/09/23 08/22/24 08/13/24 History hydralazine 100 mg tablet 100 mg PO Q8H 01/09/23 08/22/24 08/13/24 History minoxidil 2.5 mg tablet 10 mg PO TID 05/16/24 08/22/24 08/13/24 History sevelamer carbonate 800 mg tablet 1,600 mg PO TID 05/16/24 08/22/24 08/13/24 History Allergies Allergy/AdvReac Type Severity Reaction Status Date / Time spironolactone Allergy Intermediate facial Verified 08/12/24 11:38 swelling haloperidol (From Haldol) Allergy ADR-Irritab Verified 08/12/24 11:38 le ketorolac Allergy Unknown Verified 08/12/24 11:38 lisinopril Allergy ADR-Swelling Verified 08/12/24 11:38 of the Eye nifedipine Allergy ALGY-Swell Verified 08/12/24 11:38 Lip/Tongue/Throat Current Medications Generic Name Dose Route Start Last Admin Trade Name Freq PRN Reason Stop Dose Admin Aspirin 81 mg 08/21/24 21:35 08/22/24 05:12 Aspirin 81 Mg Ec Tablet PO Not Given QAM ARTEM Atorvastatin Calcium 40 mg 08/21/24 21:00 08/21/24 20:55 Atorvastatin 40 Mg Tablet PO 40 mg BEDTIME ARTEM Administration Carvedilol 37.5 mg 08/22/24 09:00 08/22/24 09:35 Carvedilol 25 Mg Tablet PO 37.5 mg Q12H ARTEM Administration Hydralazine HCl 100 mg 08/22/24 09:00 08/22/24 16:46 Hydralazine 50 Mg Tablet PO 100 mg Q8H ARTEM Administration Heparin Sodium/Sodium Chloride 25,000 unit in 500 mls @ 0 mls/hr 08/21/24 21:45 08/22/24 03:41 Heparin Drip IV 14.05 unit/kg/hr CONT ARTEM 28 mls/hr Titration Protocol Per Protocol Minoxidil 10 mg 08/22/24 09:00 08/22/24 16:39 Minoxidil 10 Mg Tablet PO 10 mg TID ARTEM Administration Morphine Sulfate 2 mg 08/21/24 20:25 08/22/24 13:24 Morphine 4 Mg/Ml Sdv 1 Ml IVP 2 mg Q4H PRN Administration SEVERE PAIN Pantoprazole Sodium 40 mg 08/21/24 20:30 08/21/24 20:50 Pantoprazole 40 Mg Sdv IVP 40 mg Q24H ARTEM Administration Sevelamer Carbonate 1,600 mg 08/21/24 21:00 08/22/24 16:39 Sevelamer 800 Mg Tablet PO 1,600 mg TID ARTEM Administration PFSH Acute PFSH: Medical History Dyslipidemia History of home oxygen therapy COPD (chronic obstructive pulmonary disease) Patient under care of multiple providers Umbilical hernia Atherosclerosis of coronary artery Stent and balloon angioplasty to proximal 1 OM branch Abdominal ascites history of intermittent paracentesis, transudative fluid; prior work up has included negative biopsy, ceruloplasmin level normal, low iron, high ferritin, normal TIBC, negative HIV, hepatitis panel negative, JESÚS/SCL 70/double-stranded DNA antibodies negative, Alpha-fetoprotein level unremarkable, nonalcoholic by history, has hepatomegaly and splenomegaly Congestive heart failure preserved ejection fraction History of cardiovascular stress test 07/2022 at [facility] perfusion imaging probably normal, no reversible defects, small fixed defect in apical anterior wall, EF 54%, nonischemic response to stress by EKG criteria Depression Epididymitis 06/2022 Pulmonary hypertension Uses bilevel positive airway pressure (BPAP) ventilation at home History of coronary angiogram 11/2021 - patent stent Inguinal hernia Chronic respiratory failure on home oxygen and bipap Nicotine dependence, cigarettes, with other nicotine-induced disorders Generalized anxiety disorder with panic attacks ESRD on dialysis Chronic abdominal pain COVID 05/25 Hypertensive emergency recurrent episodes Urethral stricture Pulmonary embolism 09/21 CTA inconclusive for very tiny peripheral LEFT lower lobe pulmonary artery sub segmental emboli versus poor opacification. Anemia chronic kidney disease Arteriovenous fistula for hemodialysis in place, secondary Degenerative disc disease, lumbar Hypertension uncontrolled Surgical History History of arteriovenous graft left upper extremity fistula, revision 07/2024 in [place] Stented coronary artery H/O hand surgery Amputation right 2&3 fingers 2017 History of adenoidectomy Family History Other Hypertension Social History Smoking and tobacco/nicotine status: current every day tobacco/nicotine user cigarettes Packs smoked per day: 1.5 Years cigarettes smoked: 21 [ Other cigarette details: started age 20, currently 0.5ppd ] Alcohol intake: never Substance/Drug Use: never Number of children: 3 Current occupational status: disabled Do you think of yourself as: Straight/Heterosexual Vitals/I&O/Wt Last Vital Signs Temp 98.2 F 08/22/24 16:00 Pulse 74 08/22/24 16:00 Resp 18 08/22/24 16:00 BP 122/71 08/22/24 16:00 Pulse Ox 93 08/22/24 16:00 O2 Del Method Nasal Cannula 08/22/24 16:00 O2 Flow Rate 3 08/22/24 03:50 08/22/24 08/22/24 08/22/24 06:59 14:59 22:59 Intake Total 1006.6 / 1006.6 600 / 600 540 / 1140 Output Total 4500 / 4500 Balance -3493.4 / -3493.4 600 / 600 540 / 1140 Weight last 48 hrs Weight 219 lb 9.6 oz Weight 226 lb 3.108 oz Weight 219 lb 9.6 oz Physical Exam Narrative: GENERAL: The patient is alert and oriented times three. Not in any acute distress. Chronically ill looking, somewhat emaciated HEENT: No significant pallor, icterus or lymphadenopathy.Oral cavity: There are no mucous membrane lesions. NECK: Trachea appears to be central. No masses noted. No JVD or thyromegaly appreciated. RESPIRATORY: Chest is symmetrical. No intercostals muscle retraction or any accessory muscle activation. There is no chest wall tenderness. Breath sounds are heard bilaterally. No rales or rhonchi heard. No evidence of any consolidation. BREASTS: Deferred. HEART: The heart sounds are normal. No S3 or S4. Short systolic murmur in the lower sternal border. No diastolic murmurs. No pericardial rub ABDOMEN: Abdomen is distended with a number ankle hernia. No tenderness. No organomegaly appreciated. Bowel sounds are normally heard. Markedly enlarged scrotum : Deferred. RECTAL: Deferred. LYMPHATIC: No lymphadenopathy noted in the neck. EXTREMITIES: 3+ edema both lower extremities. MUSCULOSKELETAL: No acute joint deformities or swelling SKIN: There are no significant rashes or ecchymosis NEUROPSYCHIATRIC: The patient is alert and oriented x3. Appears to be in a good mood. No tremors or rigidity noted. Data 08/23/24 17:58 08/23/24 05:28 Other Labs: Laboratory Last Values WBC 3.02 10^3/uL (3.29-11.43) L 08/22/24 02:29 RBC 3.04 10^6/uL (3.85-5.65) L 08/22/24 02:29 Hgb 8.50 g/dL (11.27-16.99) L 08/22/24 02:29 Hct 27.5 % (37-53) L 08/22/24 02:29 MCV 90.5 fl (82-101) 08/22/24 02:29 MCH 28.0 pg (27-33) 08/22/24 02:29 MCHC 30.9 g/dL (30-55) 08/22/24 02:29 RDW 18.3 % (12.1-15.1) H 08/22/24 02:29 Plt Count 258 10^3/cmm (157-399) 08/22/24 02:29 MPV 10.0 fL (7.4-10.4) 08/22/24 02:29 Neut % (Auto) 55.3 % 08/22/24 02:29 Lymph % (Auto) 16.6 % 08/22/24 02:29 Lane % (Auto) 15.2 % 08/22/24 02: Eos % (Auto) 10.6 % 08/22/24 02: Baso % (Auto) 2.0 % 08/22/24 02: Neut # (Auto) 1.67 10^3/uL (1.8-7.7) L 08/22/24 02: Lymph # (Auto) 0.5 10^3/uL (0.8-4.8) L 08/22/24 02: Lane # (Auto) 0.5 10^3/uL (0.2-0.9) 08/22/24 02: Eos # (Auto) 0.3 10^3/uL (0.0-0.8) 08/22/24 02: Baso # (Auto) 0.1 10^3/uL (0.0-0.1) 08/22/24 02: Nucleated RBC % (auto) 0 % 08/22/24 02: Nucleated RBCs # 0.0 /100WBC 08/22/24 02: ESR 58 mm/hr (0-10) H 08/21/24 20:37 PT 15.70 SECONDS (12.1-14.9) H 08/22/24 13:36 INR 1.16 (0.8-1.2) 08/22/24 13:36 APTT 62.6 SECONDS (23.9-36.7) H 08/22/24 19:21 Specimen Type Arterial 08/21/24 20:48 Sample Site Radial, right 08/21/24 20:48 ABG pH 7.40 (7.35-7.45) 08/21/24 20:48 ABG pCO2 46.7 mmHg (35-45) H 08/21/24 20:48 ABG pO2 104.0 mmHg (80.0-100.0) H 08/21/24 20:48 ABG HCO3 28.7 mmol/L (22-26) H 08/21/24 20:48 ABG Base Excess 3.4 mmol/L (-2.0-2.0) H 08/21/24 20:48 Alexei Test Pos 08/21/24 20:48 Hematocrit 28.7 % (42-52) L 08/21/24 20:48 O2 Delivery Device Nc 08/21/24 20:48 O2 Liters/Min 3.0 % 08/21/24 20:48 Metal [employer]ing [employer]ades Worker ID [id number] 08/21/24 20:48 Sodium 134 mmol/L (136-145) L 08/22/24 02:29 Potassium 4.5 mmol/L (3.5-5.1) 08/22/24 02:29 Chloride 97 mmol/L (98-107) L 08/22/24 02:29 Carbon Dioxide 28 mmol/L (22-29) 08/22/24 02:29 Anion Gap 13.5 (5-19) 08/22/24 02:29 BUN 14 mg/dL (6-20) 08/22/24 02:29 Creatinine 4.8 mg/dL (0.7-1.2) H 08/22/24 02:29 GFR Calculation 13.5 mL/min (90-130) L 08/22/24 02:29 Glucose 78 mg/dL (65-115) 08/22/24 02:29 POC Glucose 90 mg/dL (70-110) 08/22/24 20:42 Calculated Osmolality 277 mOsm/kg (285-295) L 08/22/24 02:29 Lactic Acid 0.5 mmol/L (0.5-2.2) 08/21/24 22:14 Calcium 8.8 mg/dL (8.5-10.5) 08/22/24 02:29 Total Bilirubin 0.2 mg/dL (0.15-1.2) 08/22/24 02:29 AST 12 U/L (0-40) 08/22/24 02:29 ALT 10 U/L (0-41) 08/22/24 02:29 Alkaline Phosphatase 122 U/L (40-130) 08/22/24 02:29 Troponin T Baseline 296 ng/L (0-15) H* 08/21/24 20:37 Troponin T 120 Minute 287.5 ng/L (0-15) H 08/21/24 22:14 Delta Troponin T -8.5 ABS# (0-10) L 08/21/24 22:14 Troponin T Hi Sens 6Hr 297.6 ng/L (0-15) H 08/22/24 02:29 Troponin T Hi Sens 6Hr Delta 1.6 ng/L (0-12) 08/22/24 02:29 C-Reactive Protein 48.4 mg/L (0.0-4.9) H 08/21/24 20:37 NT-Pro-B Natriuret Pep > 05359 pg/mL (0-125) H 08/21/24 20:37 Total Protein 5.7 g/dL (6.6-8.7) L 08/22/24 02:29 Albumin 2.6 g/dL (3.5-5.2) L 08/22/24 02:29 Globulin 3.1 g/dL (1.3-4.6) 08/22/24 02:29 Triglycerides 88 mg/dL (0-150) 08/21/24 20: Cholesterol 102 mg/dL (0-200) 08/21/24 20:37 LDL Cholesterol, Calc 54 mg/dL (50-129) 08/21/24 20: HDL Cholesterol 30 mg/dL (60-100) L 08/21/24 20:37 LDL/HDL Ratio 1.80 RATIO (0.00-3.22) 08/21/24 20:37 Cholesterol/HDL Ratio 3.40 mg/dL (1.0-5.00) 08/21/24 20:37 Procalcitonin 0.77 ng/mL (0-0.5) H 08/21/24 20:37 TSH 5.26 uIU/mL (0.27-4.20) H 08/21/24 20:37 Micro: Microbiology 08/21/24 22:19 Blood Culture - Preliminary Blood SPECIMEN COLLECTED 08/21/24 22:14 Blood Culture - Preliminary Blood SPECIMEN COLLECTED Other data: Echocardiogram from 07/20/2023 LV systolic function is normal with EF of 60 to 65%. Moderate left ventricular hypertrophy. Left atrial dilation. Moderate mitral stenosis. Mild mitral regurgitation Mild aortic stenosis. Moderate tricuspid regurgitation. Moderate pulmonary hypertension Small to medium sized pericardial effusion. IVC is dilated. Compared to prior echocardiogram from 2021, patient now has moderate mitral stenosis and mild aortic stenosis Cardiac regularization on 11/24/2021 * The left main is extremely short vessel which appears to bifurcate to theLAD and circumflex artery. No significant stenotic lesions were noted. * The left anterior descending artery is a medium to large caliber vesselwhich appears to wrap around the LV apex inimally. It gives off a large diagonal branch which then trifurcates at the mid segment. Mild diffuse disease intimal irregularities were noted in the proximal to mid LAD.. * The left circumflex artery is a medium caliber orthopedic use of a high obtuse marginal branch. The proximal stented segment of this artery is widely patent. No significant obstructive lesions were noted. The circumflex artery was found to have minimal intimal irregularities.. * The right coronary artery is a medium caliber dominant vessel which is found to have around 20 to 30% irregular narrowing of the mid segment. The distal segment of the artery also was found to have minimal irregular narrowing. No significant stenotic lesions were noted. The right coronary artery is the dominant vessel.. A&P Assessment and plan (1) Severe hypertension: (2) Congestive heart failure: Patient seems to have heart failure with a preserved LV ejection fraction. Severe LV diastolic dysfunction and the renal failure are contributing factors. Coronary ischemia causing this cannot be excluded. But my clinical suspicion may be low. Qualifiers: Heart failure chronicity: unspecified Heart failure type: unspecified Qualified Code(s): I50.9 - Heart failure, unspecified (3) Atherosclerosis of coronary artery: Had a PCI of the obtuse marginal artery in the past. Coronary angiogram in 2021 revealed only mild diffuse coronary disease with a patent stent in the OM branch. Qualifiers: Associated angina: without angina Coronary Disease-Associated Artery/Lesion type: [place] artery [place] vs. transplanted heart: [place] heart Qualified Code(s): I25.10 - Atherosclerotic heart disease of [place] coronary artery without angina pectoris (4) History of arteriovenous graft: Appears to be patent. In the left upper extremity. (5) Dyslipidemia: May continue on the current medication (6) Abdominal ascites: Appears to be from cirrhosis of the liver Qualifiers: Ascites type: other type Qualified Code(s): R18.8 - Other ascites (7) End stage renal disease on dialysis: (8) Anemia in chronic kidney disease, on chronic dialysis: Most likely anemia of chronic kidney disease (9) COPD (chronic obstructive pulmonary disease): Clinically seems to be stable. May continue on the current management. Qualifiers: COPD type: chronic bronchitis Chronic bronchitis type: mixed simple and mucopurulent Qualified Code(s): J41.8 - Mixed simple and mucopurulent chronic bronchitis (10) Acute respiratory failure with hypoxia: Most likely related with heart failure. The respiratory status seems to be fairly stable at this time. Plan Based on the patient's clinical progress, further recommendations will be made. Once the heart failure is properly treated, we may consider doing a Myocardial perfusion imaging to evaluate for underlying coronary ischemia. Since the patient has no chest pain or any significant EKG changes, the heart failure could very well be related to fluid overload Thank you for the opportunity to evaluate this patient and make these recommendations PDMP PDMP Reviewed: Not Reviewed Consult Attestations Medical Necessity Statement: Patient requires continued hospital stay for close monitoring and further management Coding Level of Care Code 50280 Diagnoses Severe hypertension I10 Congestive heart failure, unspecified HF chronicity, unspecified heart failure type I50.9 Heart failure chronicity: unspecified Heart failure type: unspecified Atherosclerosis of [place] coronary artery of [place] heart without angina pectoris I25.10 Associated angina: without angina Coronary Disease-Associated Artery/Lesion type: [place] artery [place] vs. transplanted heart: [place] heart History of arteriovenous graft Z98.890 Dyslipidemia E78.5 Other ascites R18.8 Ascites type: other type End stage renal disease on dialysis N18.6; Z99.2 Anemia in chronic kidney disease, on chronic dialysis N18.6; D63.1; Z99.2 Mixed simple and mucopurulent chronic bronchitis J41.8 COPD type: chronic bronchitis Chronic bronchitis type: mixed simple and mucopurulent Acute respiratory failure with hypoxia J96.01
[2024-08-22 20:47] LABS: Glucose Point of Care 90 mg/dL (70-110)
[2024-08-22] MEDS: atorvastatin 40 mg Tablet PO (20:53)
[2024-08-22] MEDS: pantoprazole 40 mg SDV IVP (20:54)
[2024-08-22] MEDS: piperacillin-tazobactam 3.375 GM in sodium chloride 0.9% (plus) 50 ML IV (20:54)
--- NOTE | 2024-08-22 21:34 | USCV_ITS ---
Mal Gibbs Age: 43 Gender: M : 1980 Exam Date: 08/22/2024 10:23 Ordering Phys: Tunde Umana MD Technologist: ISRA Exam Location: [facility] [place] Indication: Nstemi BP: 117 / 65 HR: 67 Rhythm: Sinus Technical Quality: Adequate MEASUREMENTS (Male / Female) Normal Values 2D ECHO LV Diastolic Diameter PLAX 4.5 cm 4.2 - 5.9 / 3.9 - 5.3 cm IVS Diastolic Thickness 1.9 cm 0.6 - 1.0 / 0.6 - 0.9 cm IVS Systolic Thickness 2.4 cm LVPW Diastolic Thickness 1.7 cm 0.6 - 1.0 / 0.6 - 0.9 cm LVPW Systolic Thickness 2.6 cm LVOT Diameter 1.9 cm LV Ejection Fraction 2D Teich 59.7 % LV Ejection Fraction MOD 4C 65.3 % LV Ejection Fraction MOD 2C 69.3 % LV Ejection Fraction 2C AL 70.6 % LA Diameter 5.5 cm RA Systolic Volume 4C AL 120.1 ml RA Systolic Volume 4C MOD 118.3 ml LA Sys Volume AL 93.6 cm cubed LA Sys Volume Index AL 41.0 cm cubed/m squared Aorta at Sinotubular Diameter 2.8 cm IVC Diameter 2.6 cm M-MODE LA Ao Ratio MM 1.8 AV Cusp Separation MM 1.3 cm DOPPLER AV Peak Velocity 179.0 cm/s LVOT Peak Velocity 142.0 cm/s AV Area Cont Eq vti 2.4 cm squared AV Area Cont Eq pk 2.2 cm squared MV Peak Velocity 271.0 cm/s MV Area PHT 4.5 cm squared Mitral E to A Ratio 0.4 TR Peak Velocity 236.0 cm/s TR Peak Gradient 22.3 mmHg TV Peak E Velocity 168.0 cm/s PV Peak Velocity 101.0 cm/s FINDINGS Left Ventricle Moderate left ventricular hypertrophy. The LV ejection fraction around 65%. No gross wall motion abnormality Right Ventricle Appears to be of normal size and ejection fraction Right Atrium Moderately increased right atrial size. Left Atrium Moderately increased left atrial size. Mitral Valve Severe mitral annular calcification. Trace to mild mitral regurgitation Aortic Valve Minimally thickened aortic valve with features of aortic valve sclerosis Tricuspid Valve No gross abnormalities noted Pulmonic Valve No gross abnormalities noted Pericardium Small to moderate echo-free space posteriorly and minimal echo- free space anteriorly Aorta Normal aortic annulus size. IVC Normal inferior vena cava. CONCLUSIONS Moderate left ventricular hypertrophy. The LV ejection fraction around 65%. No gross wall motion abnormality. Moderate biatrial enlargement. Minimally thickened aortic valve with features of aortic valve sclerosis Severe mitral annular calcification. Trace to mild mitral regurgitation. Features of small to moderate pericardial effusion mostly on the posterolateral aspect of the ventricle There are no intracardiac masses. Compared to the study from 07/20/2023, no significant change in the pericardial effusion/ejection fraction Dr Ruba Hussein MD FAC (Electronically Signed) Final Date: 23 August 2024 08:00 S
[2024-08-22] MEDS: oxyCODONE-APAP 5-325 mg Tablet 1 TAB PO (22:55)
[2024-08-22] MEDS: heparin drip 25,000 UNIT/500 ML PREMIX 28 UNIT IV (22:57)
[2024-08-23] VITALS (14 sets, daily range): BP systolic 104–144; BP diastolic 54–74; PULSE 60–77; RESP 16–18; TEMP 36.5–37.2; O2SAT 95–100
[2024-08-23] MEDS: morphine 4 mg/mL SDV 1 mL 2 MG IVP ×5 (00:20→20:12)
[2024-08-23] MEDS: hyDRALAzine 50 mg Tablet 100 MG PO ×2 (01:30→11:38)
[2024-08-23] MEDS: piperacillin-tazobactam 3.375 GM in sodium chloride 0.9% (plus) 50 ML IV ×2 (05:06→16:58)
[2024-08-23] MEDS: aspirin 81 mg EC Tablet PO (05:07)
[2024-08-23 05:59] LABS: Basophils # 0.1 10^3/uL (0.0-0.1); Basophils % 1.6 %; Eosinophils # 0.3 10^3/uL (0.0-0.8); Eosinophils % 8.5 %; Hematocrit 24.9 % (37-53); Lymphocytes # 0.6 10^3/uL (0.8-4.8); Mean Corpuscular HGB Conc 30.5 g/dL (30-55); Mean Corpuscular Hemoglobin 28.4 pg (27-33); Mean Corpuscular Volume 92.9 fl (82-101); Mean Platelet Volume 9.8 fL (7.4-10.4); Monocytes # 0.5 10^3/uL (0.2-0.9); Neutrophils # 2.29 10^3/uL (1.8-7.7); Neutrophils % 60.9 %; Nucleated Red Blood Cells % 0 %; Platelet Count 225 10^3/cmm (157-399); Red Blood Count 2.68 10^6/uL (3.85-5.65); Red Cell Distribution Width 18.3 % (12.1-15.1); White Blood Count 3.76 10^3/uL (3.29-11.43)
[2024-08-23 06:22] LABS: Glucose Point of Care 78 mg/dL (70-110)
[2024-08-23 06:26] LABS: Alanine Aminotransferase 9 U/L (0-41); Albumin Level 2.3 g/dL (3.5-5.2); Alkaline Phosphatase 99 U/L (40-130); Anion Gap 16.3 (5-19); Aspartate Amino Transferase 9 U/L (0-40); Blood Urea Nitrogen 19 mg/dL (6-20); Calcium 9.2 mg/dL (8.5-10.5); Carbon Dioxide 26 mmol/L (22-29); Chloride 96 mmol/L (98-107); Creatinine Clr Calc Pharmacy 19.6895; Globulin 3.7 g/dL (1.3-4.6); Glucose 71 mg/dL (65-115); Magnesium 1.9 mg/dL (1.7-2.3); Osmolality Calculated 277 mOsm/kg (285-295); Phosphorus 6.3 mg/dL (2.5-4.5); Potassium 5.3 mmol/L (3.5-5.1); Sodium 133 mmol/L (136-145); Total Bilirubin 0.2 mg/dL (0.15-1.2)
[2024-08-23 06:29] LABS: Procalcitonin 0.59 ng/mL (0-0.5)
--- NOTE | 2024-08-23 07:35 | PC.HD ---
Heparin 1000 units loading dose administered via venous HD needle at 0725 prior to HD treatment initiation per labor relations analyst's orders.
--- NOTE | 2024-08-23 10:08 | P.PN_ITS ---
Subjective 2 Subjective: getting hd Medications: Reviewed: Yes Vitals/I&O/Wt Last Vital Signs Temp 97.9 F 08/23/24 07:34 Pulse 62 08/23/24 07:34 Resp 18 08/23/24 07:34 BP 111/62 08/23/24 07:34 Pulse Ox 97 08/23/24 07:15 O2 Del Method Nasal Cannula 08/23/24 07:15 O2 Flow Rate 2.5 08/23/24 07:15 08/22/24 08/23/24 08/23/24 22:59 06:59 14:59 Intake Total 1013.400 / 1613.400 208.733 / 1822.133 Output Total 0 / 0 Balance 1013.400 / 1613.400 208.733 / 1822.133 Weight last 48 hrs Weight 102.104 kg Weight 102.104 kg Weight 99.609 kg Weight 102.6 kg Weight 99.609 kg Physical Exam 2 Narrative: awake , alert PEERLA S1S2 RRR per report Lungs with radha crackles per report Abd soft , non tender + edema Data 08/23/24 05:28 08/23/24 05:28 Micro: Microbiology 08/21/24 22:14 Blood Culture - Preliminary Blood NEGATIVE TO DATE 08/21/24 22:19 Blood Culture - Preliminary Blood NEGATIVE TO DATE A&P Assessment and plan (1) End stage renal disease on dialysis: Plan 1. End-stage renal disease:HD today , on TTS schedule as out pt , Advised low- sodium diet and 1500 mL fluid restriction 2. Hypertension: Resumed home meds 3. Anemia: TREY with HD 4. History of diastolic CHF, now with anasarca and pulmonary edema, aggressive HD as above Patient evaluated using audiovisual cart. Time spent 40 minutes PDMP PDMP Reviewed: Not Reviewed Attestations 2 Medical Necessity Statement*: per jamee Coding Level of Care Code Acute Code for Chg Fwd Diagnoses End stage renal disease on dialysis N18.6; Z99.2
[2024-08-23 10:42] LABS: Glucose Point of Care 79 mg/dL (70-110)
--- NOTE | 2024-08-23 10:53 | PC.CHAP ---
Pastoral Care Encounter/Spiritual Assessment Type of Contact [] Declined software quality tester visit [] Patient/Family/Request visit [] Outpatient visit [] Follow-up visit [] Physician referral [] Code/Alert [] Routine visit [] Staff referral [] Actively dying [] Patient sleeping [] Family support [] [x] Out of room [] Palliative care [] [] Receiving care in room [] Pre-surgical visit [] Trauma [] Long length of stay [] ICU visit [] Other: Relational/Emotional Strength [] Patient feels connected with others/family/visitors/staff [] Distress [] Loneliness/isolation [] Abandonment Spirituality of Patient [] Person of Ct [] Attends Mandaen of their Ct [] Believes in Prayer [] Reads Bible or Sikh materials [] There are Spiritual issues to be addressed Basket Weaver Interventions [] Prayer [] Active listening [] Non-anxious presence [] Spiritual/emotional support [] Crisis/trauma care [] Spiritual counseling [] Bereavement support [] Provided bereavement packet [] Provided Bible/devotional materials [] Provided toy/stuffed animal, coloring book to patient or family member [] Provided Communion [] Anointing/[place] [] Salvation [] Completed spiritual assessment [] Other: Impact on Illness or Injury [] Angry [] Fearful [] Anxious [] Often cries [] Exhaustion [] Unable to work [] Unable to attend sikhism [] Unable to walk/stand [] Unable to read [] Unable to drive [] Unable to eat/drink [] Unable to sleep [] Unable to be with family [] Patient intubated [] Other: Summary Time spent with patient
[2024-08-23] MEDS: carvedilol 25 mg Tablet 37.5 MG PO ×2 (11:38→20:14)
[2024-08-23] MEDS: minoxidil 10 mg Tablet PO ×3 (11:38→20:15)
--- NOTE | 2024-08-23 12:03 | US_ITS ---
WS: [id number] ULTRASOUND-GUIDED THERAPEUTIC PARACENTESIS Procedure, risks, and complications have been explained to the patient. Consent is obtained. Utilizing aseptic technique and 1% buffered lidocaine, a small dermatome was made through which a 5 Greek Yueh catheter was inserted. Approximately 4500 ml of clear peritoneal fluid was obtained without difficulty. No complications encountered. US/US paracentesis abd w [id number] IMPRESSION: Uncomplicated paracentesis yielding 4500 ml of peritoneal fluid.
[2024-08-23] MEDS: sevelamer 800 mg Tablet 1600 MG PO ×2 (15:05→20:14)
[2024-08-23 15:19] LABS: PATH Referral YES; pH Body Fluid 7.5
[2024-08-23 15:20] LABS: Body Fluid Polynuclear #Cells 0.004; Body Fluid WBC 124 /uL
[2024-08-23 15:41] LABS: Apprearance, Body Fluid CLOUDY; Color, Body Fluid PALE YELLOW; Cyto Order Verification Order Verified; Fluid Laterality ASCITIES
[2024-08-23 15:43] LABS: Albumin Body Fluid 1.4 g/dL; Cholesterol Body Fluid 43 mg/dL (0-200); Fluid Alkaline Phos. 27 IU/L; LDH Body Fluid 99 U/L; Triglycerides Body Fluid 20 mg/dL (0-150); Uric Acid Body Fluid 4 mg/dL
[2024-08-23 15:52] LABS: Body Fluid Specific Gravity 1.023
--- NOTE | 2024-08-23 16:47 | P.PN_ITS ---
Subjective 2 Subjective: Patient was seen this morning, he is alert oriented x 3, following all commands, denies any fevers, chills, no cough does report weakness and fatigue, does report edema, we discussed his scrotal ultrasound, we will have to have him follow-up with urology as outpatient, he is never seen a urologist for this, Vitals/I&O/Wt Last Vital Signs Temp 98.9 F 08/23/24 15:30 Pulse 63 08/23/24 15:30 Resp 17 08/23/24 15:30 BP 110/54 08/23/24 15:30 Pulse Ox 100 08/23/24 15:30 O2 Del Method Nasal Cannula 08/23/24 15:30 O2 Flow Rate 2.5 08/23/24 15:30 08/23/24 08/23/24 08/23/24 06:59 14:59 22:59 Intake Total 208.733 / 1822.133 668 / 668 Output Total 0 / 0 4500 / 4500 Balance 208.733 / 1822.133 -3832 / -3832 Weight last 48 hrs Weight 100.9 kg Weight 102.104 kg Weight 102.104 kg Weight 99.609 kg Weight 102.6 kg Weight 99.609 kg Physical Exam 2 Const: COMMON NORMALS: no acute distress and patient oriented x3 Resp: COMMON NORMALS: normal respiratory effort, No retractions and No use of accessory muscles OTHER: Diffuse wheezing and crackles Cardio: COMMON NORMALS: regular rate, regular rhythm, S1 normal heart sound present and S2 normal heart sound present RATE: regular rate RHYTHM: r egular rhythm HEART SOUNDS: S1 normal heart sound present and S2 normal heart sound present GI: COMMON NORMALS: Normal to inspection, nondistended, normoactive bowel sounds present and non-tender Extremity: NARRATIVE EXTREMITY EXAM: 2+ pitting edema Neuro: COMMON NORMALS: patient oriented x3 Psych: COMMON NORMALS: mental status grossly normal Data 08/23/24 05:28 08/23/24 05:28 Micro: Microbiology 08/21/24 22:14 Blood Culture - Preliminary Blood NEGATIVE TO DATE 08/21/24 22:19 Blood Culture - Preliminary Blood NEGATIVE TO DATE A&P Assessment and plan (1) Severe hypertension: (2) Congestive heart failure: Qualifiers: Heart failure chronicity: unspecified Heart failure type: unspecified Qualified Code(s): I50.9 - Heart failure, unspecified (3) Atherosclerosis of coronary artery: Qualifiers: Associated angina: without angina Coronary Disease-Associated Artery/Lesion type: [place] artery [place] vs. transplanted heart: [place] heart Qualified Code(s): I25.10 - Atherosclerotic heart disease of [place] coronary artery without angina pectoris (4) History of arteriovenous graft: (5) Dyslipidemia: (6) Umbilical hernia: (7) Abdominal ascites: Qualifiers: Ascites type: other type Qualified Code(s): R18.8 - Other ascites (8) End stage renal disease on dialysis: (9) Anemia in chronic kidney disease, on chronic dialysis: (10) COPD (chronic obstructive pulmonary disease): Qualifiers: COPD type: chronic bronchitis Chronic bronchitis type: mixed simple and mucopurulent Qualified Code(s): J41.8 - Mixed simple and mucopurulent chronic bronchitis (11) Noncompliance: (12) Acute respiratory failure with hypoxia: (13) Fluid overload: Plan Acute hypoxic respiratory failure - Secondary to fluid overload, generalized anasarca, diastolic CHF exacerbation, missed dialysis -Evidence of acute respiratory distress due to fluid overload, requiring urgent dialysis -Plan - Nephrology consulted for dialysis - Continues to be fluid overloaded, continue dialysis NSTEMI - No chest pain complaints - Aspirin, statin, beta-patricia - Heparin drip for 24 hours - Cardiac echo CONCLUSIONS Moderate left ventricular hypertrophy. The LV ejection fraction around 65%. No gross wall motion abnormality. Moderate biatrial enlargement. Minimally thickened aortic valve with features of aortic valve sclerosis Severe mitral annular calcification. Trace to mild mitral regurgitation. Features of small to moderate pericardial effusion mostly on the posterolateral aspect of the ventricle There are no intracardiac masses. Compared to the study from 07/20/2023, no significant change in the pericardial effusion/ejection fraction - Cardiology consulted elevated crp, procal, WBC -blood culture - Does complain of scrotal pain, scrotal ultrasound shows evidence of epididymitis - Will place on broad-spectrum antibiotic therapy Right scrotal mass? / scrotum [id number] IMPRESSION: 1. The LEFT testicle is identified and shows no evidence of mass or torsion. 2. Findings in the LEFT epididymis that suggest epididymitis. 3. No normal RIGHT testicle identified. The RIGHT scrotal compartment is virtually filled with heterogeneous masslike density. Considerations would include large complex cystic intratesticular neoplasm, chronic hematocele or pyocele or herniated mass into the RIGHT compartment. Similar findings identified on the prior study 09/18/2023. 4. Extensive scrotal enlargement with scrotal wall edema. - Discussed with radiology this might just be a fluid collection from his heart failure, end-stage renal disease -Nonetheless we will have him follow-up with urology as outpatient History of abdominal ascites, consult will receive paracentesis today Hypertension - Resume patient's hydralazine, Coreg, minoxidil Acute on chronic anemia - Monitor hemoglobin, iron studies Hypoglycemia - Hypoglycemia protocol History of noncompliance, encourage compliance Complaints of left knee pain? Possible cellulitis left lower extremity - Patient apparently had a workup in [place], with arthrocentesis with evidence of infection - However was discharged on p.o. antibiotics? - Complaints of left knee pain -Does have erythema, left leg, possible cellulitis - CT knee CT/CT knee LT w con [id number] IMPRESSION: 1. Subcutaneous soft tissue edema, likely on the basis of cellulitis. Third spacing/anasarca and lymphedema may also be considered. No soft tissue gas, obvious drainable fluid collections or acute osseous findings. 2. No significant knee joint effusion or osseous regional erosions and therefore septic arthritis is highly unlikely. -Unlikely to be septic arthritis - Start IV antibiotics for overlying cellulitis Full code Heparin for DVT prophylaxis PDMP PDMP Reviewed: Not Reviewed Attestations 2 Medical Necessity Statement*: Patient requires hospitalization for fluid overload, NSTEMI, cellulitis, abdominal ascites Diagnoses Severe hypertension I10 Congestive heart failure, unspecified HF chronicity, unspecified heart failure type I50.9 Heart failure chronicity: unspecified Heart failure type: unspecified Atherosclerosis of [place] coronary artery of [place] heart without angina pectoris I25.10 Associated angina: without angina Coronary Disease-Associated Artery/Lesion type: [place] artery [place] vs. transplanted heart: [place] heart History of arteriovenous graft Z98.890 Dyslipidemia E78.5 Umbilical hernia K42.9 Other ascites R18.8 Ascites type: other type End stage renal disease on dialysis N18.6; Z99.2 Anemia in chronic kidney disease, on chronic dialysis N18.6; D63.1; Z99.2 Mixed simple and mucopurulent chronic bronchitis J41.8 COPD type: chronic bronchitis Chronic bronchitis type: mixed simple and mucopurulent Noncompliance Z91.199 Acute respiratory failure with hypoxia J96.01 Fluid overload E87.70
--- NOTE | 2024-08-23 17:09 | PC.NURSE ---
dr. castrejon gave order to restart heparin gtt over and no bolus pts wght 211.4
[2024-08-23 17:22] LABS: Glucose Point of Care 103 mg/dL (70-110)
[2024-08-23] MEDS: heparin drip 25,000 UNIT/500 ML PREMIX 27 UNIT IV (18:11)
[2024-08-23 18:17] LABS: Basophils # 0.1 10^3/uL (0.0-0.1); Basophils % 1.4 %; Eosinophils # 0.3 10^3/uL (0.0-0.8); Eosinophils % 9.3 %; Hematocrit 26.4 % (37-53); Lymphocytes # 0.5 10^3/uL (0.8-4.8); Lymphocytes % 12.7 %; Mean Corpuscular HGB Conc 30.7 g/dL (30-55); Mean Corpuscular Hemoglobin 28.3 pg (27-33); Mean Corpuscular Volume 92.3 fl (82-101); Mean Platelet Volume 10.7 fL (7.4-10.4); Monocytes # 0.4 10^3/uL (0.2-0.9); Monocytes % 10.4 %; Neutrophils # 2.34 10^3/uL (1.8-7.7); Neutrophils % 65.9 %; Nucleated Red Blood Cells % 0 %; Platelet Count 229 10^3/cmm (157-399); Red Blood Count 2.86 10^6/uL (3.85-5.65); Red Cell Distribution Width 18.1 % (12.1-15.1); White Blood Count 3.55 10^3/uL (3.29-11.43)
--- NOTE | 2024-08-23 18:38 | PM.PN ---
Subjective Subjective: Patient has a hemodialysis today. He feels very tired and worn out. No chest pain. No shortness of breath. No significant improvement of the leg swelling. Medications: Medication Review Details: Current Medications Acetaminophen (Acetaminophen 325 Mg Tablet) 650 mg PO Q6H PRN PRN Reason: Mild/Mod Pain Or Temp >/= 101 Albuterol/Ipratropium (Ipratropium-Albuterol 3 Ml Neb) 3 ml INHALATION Q4H PRN PRN Reason: SHORTNESS OF BREATH Aspirin (Aspirin 81 Mg Ec Tablet) 81 mg PO QAM [facility] Last Admin: 08/23/24 05:07 Dose: 81 mg Atorvastatin Calcium (Atorvastatin 40 Mg Tablet) 40 mg PO BEDTIME [facility] Last Admin: 08/22/24 20:53 Dose: 40 mg Carvedilol (Carvedilol 25 Mg Tablet) 37.5 mg PO Q12H [facility] Last Admin: 08/23/24 11:38 Dose: 37.5 mg Glucagon (Glucagon 1 Mg/Ml Kit 1 Ml) 1 mg IM ONCE PRN; Protocol PRN Reason: Adult Acute Hypoglycemia Nursing Prot. Heparin Sodium (Porcine) (Heparin 5,000 Unit/Ml Inj 1 Ml) 0 unit IVP PRN PRN; Protocol PRN Reason: Heparin Weight Based Protocol -Subsequent Bolus Hydralazine HCl (Hydralazine 50 Mg Tablet) 100 mg PO Q8H [facility] Last Admin: 08/23/24 17:31 Dose: Not Given Dextrose (D5w) 500 mls @ 0 mls/hr IV ONCE PRN; Protocol PRN Reason: Adult Acute Hypoglycemia Prot Dextrose (D10w) 125 mls @ 750 mls/hr IV PRN PRN; Protocol PRN Reason: Adult Acute Hypoglycemia Nursing Protocol Dextrose (D10w) 250 mls @ 1,000 mls/hr IV PRN PRN; Protocol PRN Reason: Adult Acute Hypoglycemia Nursing Protocol Heparin Sodium/Sodium Chloride (Heparin Drip) 25,000 unit in 500 mls @ 0 mls/hr IV CONT ARTEM; Protocol Last Admin: 08/23/24 18:11 Dose: 13.55 unit/kg/hr, 27 mls/hr Sodium Chloride (Sodium Chloride 0.9%) 1,000 mls @ 0 mls/hr IV .Q0M PRN PRN Reason: hypotension or symptomatic Albumin Human (Albumin) 12.5 gm in 50 mls @ 60 mls/hr IV PRN PRN PRN Reason: Hypotension and/or symptomatic Vancomycin HCl 1,000 mg/ (Sodium Chloride) 250 mls @ 250 mls/hr IV ONCE ONE Stop: 08/23/24 21:59 Piperacillin Sod/Tazobactam (Sod 3.375 gm/ Sodium Chloride) 50 mls @ 12.5 mls/hr IV Q12H [facility] Last Admin: 08/23/24 16:58 Dose: 12.5 mls/hr Minoxidil (Minoxidil 10 Mg Tablet) 10 mg PO TID [facility] Last Admin: 08/23/24 15:05 Dose: 10 mg Morphine Sulfate (Morphine 4 Mg/Ml Sdv 1 Ml) 2 mg IVP Q4H PRN PRN Reason: SEVERE PAIN Last Admin: 08/23/24 15:05 Dose: 2 mg Naloxone HCl (Naloxone 0.4 Mg/Ml Sdv) 0.1 mg IVP Q2M PRN PRN Reason: OPIATERV Non-Formulary Medication (Ferric Citrate [Auryxia]) 0 tab .ROUTE .COMPLEX ARTEM Non-Formulary Medication (Vit B,V-Sv-Evnr-Selen-Vit D3-E [Renaplex-D]) 1 tab PO QAM ARTEM Ondansetron HCl (Ondansetron 2 Mg/Ml Sdv 2 Ml) 4 mg IVP Q8H PRN PRN Reason: vomiting, or N/V if npo Pantoprazole Sodium (Pantoprazole 40 Mg Sdv) 40 mg IVP Q24H [facility] Last Admin: 08/22/24 20:54 Dose: 40 mg Sevelamer Carbonate (Sevelamer 800 Mg Tablet) 1,600 mg PO TID [facility] Last Admin: 08/23/24 15:05 Dose: 1,600 mg Vancomycin HCl (Vancomycin 1,000 Mg Sdv (Pharmacy Mix)) 0 mg XX PRN PRN PRN Reason: Pharmacy to Dose Vitals/I&O/Wt Last Vital Signs Temp 98.9 F 08/23/24 15:30 Pulse 63 08/23/24 15:30 Resp 17 08/23/24 15:30 BP 110/54 08/23/24 15:30 Pulse Ox 100 08/23/24 15:30 O2 Del Method Nasal Cannula 08/23/24 15:30 O2 Flow Rate 2.5 08/23/24 15:30 08/23/24 08/23/24 08/23/24 06:59 14:59 22:59 Intake Total 208.733 / 1822.133 668 / 668 240 / 908 Output Total 0 / 0 4500 / 4500 Balance 208.733 / 1822.133 -3832 / -3832 240 / -3592 Weight last 48 hrs Weight 211 lb 6.4 oz Weight 222 lb 7.143 oz Weight 225 lb 1.6 oz Weight 225 lb 1.6 oz Weight 219 lb 9.6 oz Weight 226 lb 3.108 oz Weight 219 lb 9.6 oz Physical Exam Narrative: GENERAL: The patient is alert and oriented times three. Not in any acute distress. Chronically ill looking, somewhat emaciated HEENT: No significant pallor, icterus or lymphadenopathy.Oral cavity: There are no mucous membrane lesions. NECK: Trachea appears to be central. No masses noted. No JVD or thyromegaly appreciated. RESPIRATORY: Chest is symmetrical. No intercostals muscle retraction or any accessory muscle activation. There is no chest wall tenderness. Breath sounds are heard bilaterally. No rales or rhonchi heard. No evidence of any consolidation. BREASTS: Deferred. HEART: The heart sounds are normal. No S3 or S4. Short systolic murmur in the lower sternal border. No diastolic murmurs. No pericardial rub ABDOMEN: Abdomen is distended with a number ankle hernia. No tenderness. No organomegaly appreciated. Bowel sounds are normally heard. Markedly enlarged scrotum : Deferred. RECTAL: Deferred. LYMPHATIC: No lymphadenopathy noted in the neck. EXTREMITIES: 3+ edema both lower extremities. Features of chronic venous stasis and stasis dermatitis MUSCULOSKELETAL: No acute joint deformities or swelling SKIN: There are no significant rashes or ecchymosis NEUROPSYCHIATRIC: The patient is alert and oriented x3. Appears to be in a good mood. No tremors or rigidity noted. Data 08/23/24 17:58 08/23/24 05:28 Other Labs: Laboratory Last Values WBC 3.55 10^3/uL (3.29-11.43) 08/23/24 17:58 RBC 2.86 10^6/uL (3.85-5.65) L 08/23/24 17:58 Hgb 8.10 g/dL (11.27-16.99) L 08/23/24 17:58 Hct 26.4 % (37-53) L 08/23/24 17:58 MCV 92.3 fl (82-101) 08/23/24 17:58 MCH 28.3 pg (27-33) 08/23/24 17:58 MCHC 30.7 g/dL (30-55) 08/23/24 17:58 RDW 18.1 % (12.1-15.1) H 08/23/24 17:58 Plt Count 229 10^3/cmm (157-399) 08/23/24 17:58 MPV 10.7 fL (7.4-10.4) H 08/23/24 17:58 Neut % (Auto) 65.9 % 08/23/24 17:58 Lymph % (Auto) 12.7 % 08/23/24 17:58 [place] % (Auto) 10.4 % 08/23/24 17:58 Eos % (Auto) 9.3 % 08/23/24 17:58 Baso % (Auto) 1.4 % 08/23/24 17:58 Neut # (Auto) 2.34 10^3/uL (1.8-7.7) 08/23/24 17:58 Lymph # (Auto) 0.5 10^3/uL (0.8-4.8) L 08/23/24 17:58 [place] # (Auto) 0.4 10^3/uL (0.2-0.9) 08/23/24 17:58 Eos # (Auto) 0.3 10^3/uL (0.0-0.8) 08/23/24 17:58 Baso # (Auto) 0.1 10^3/uL (0.0-0.1) 08/23/24 17:58 Nucleated RBC % (auto) 0 % 08/23/24 17:58 Nucleated RBCs # 0.0 /100WBC 08/23/24 17:58 Differential Comment Yes 08/23/24 14:30 ESR 58 mm/hr (0-10) H 08/21/24 20:37 PT 15.70 SECONDS (12.1-14.9) H 08/22/24 13:36 INR 1.16 (0.8-1.2) 08/22/24 13:36 APTT 62.6 SECONDS (23.9-36.7) H 08/22/24 19:21 Specimen Type Arterial 08/21/24 20:48 Sample Site Radial, right 08/21/24 20:48 ABG pH 7.40 (7.35-7.45) 08/21/24 20:48 ABG pCO2 46.7 mmHg (35-45) H 08/21/24 20:48 ABG pO2 104.0 mmHg (80.0-100.0) H 08/21/24 20:48 ABG HCO3 28.7 mmol/L (22-26) H 08/21/24 20:48 ABG Base Excess 3.4 mmol/L (-2.0-2.0) H 08/21/24 20:48 Alexei Test Pos 08/21/24 20:48 Hematocrit 28.7 % (42-52) L 08/21/24 20:48 O2 Delivery Device Nc 08/21/24 20:48 O2 Liters/Min 3.0 % 08/21/24 20:48 Forging Die Sinker ID Jdb 08/21/24 20:48 Sodium 133 mmol/L (136-145) L 08/23/24 05:28 Potassium 5.3 mmol/L (3.5-5.1) H 08/23/24 05:28 Chloride 96 mmol/L (98-107) L 08/23/24 05:28 Carbon Dioxide 26 mmol/L (22-29) 08/23/24 05:28 Anion Gap 16.3 (5-19) 08/23/24 05:28 BUN 19 mg/dL (6-20) 08/23/24 05:28 Creatinine 6.2 mg/dL (0.7-1.2) H* 08/23/24 05:28 GFR Calculation 10.0 mL/min (90-130) L 08/23/24 05:28 Glucose 71 mg/dL (65-115) 08/23/24 05:28 POC Glucose 103 mg/dL (70-110) 08/23/24 17:19 Calculated Osmolality 277 mOsm/kg (285-295) L 08/23/24 05:28 Lactic Acid 0.5 mmol/L (0.5-2.2) 08/21/24 22:14 Calcium 9.2 mg/dL (8.5-10.5) 08/23/24 05:28 Phosphorus 6.3 mg/dL (2.5-4.5) H 08/23/24 05:28 Magnesium 1.9 mg/dL (1.7-2.3) 08/23/24 05:28 Total Bilirubin 0.2 mg/dL (0.15-1.2) 08/23/24 05:28 AST 9 U/L (0-40) 08/23/24 05:28 ALT 9 U/L (0-41) 08/23/24 05:28 Alkaline Phosphatase 99 U/L (40-130) 08/23/24 05:28 Troponin T Baseline 296 ng/L (0-15) H* 08/21/24 20:37 Troponin T 120 Minute 287.5 ng/L (0-15) H 08/21/24 22:14 Delta Troponin T -8.5 ABS# (0-10) L 08/21/24 22:14 Troponin T Hi Sens 6Hr 297.6 ng/L (0-15) H 08/22/24 02:29 Troponin T Hi Sens 6Hr Delta 1.6 ng/L (0-12) 08/22/24 02:29 C-Reactive Protein 45.0 mg/L (0.0-4.9) H 08/23/24 05:28 NT-Pro-B Natriuret Pep > 73209 pg/mL (0-125) H 08/21/24 20:37 Total Protein 6.0 g/dL (6.6-8.7) L 08/23/24 05:28 Albumin 2.3 g/dL (3.5-5.2) L 08/23/24 05:28 Globulin 3.7 g/dL (1.3-4.6) 08/23/24 05:28 Triglycerides 88 mg/dL (0-150) 08/21/24 20:37 Cholesterol 102 mg/dL (0-200) 08/21/24 20:37 LDL Cholesterol, Calc 54 mg/dL (50-129) 08/21/24 20:37 HDL Cholesterol 30 mg/dL (60-100) L 08/21/24 20:37 LDL/HDL Ratio 1.80 RATIO (0.00-3.22) 08/21/24 20:37 Cholesterol/HDL Ratio 3.40 mg/dL (1.0-5.00) 08/21/24 20:37 Procalcitonin 0.59 ng/mL (0-0.5) H 08/23/24 05:28 TSH 5.26 uIU/mL (0.27-4.20) H 08/21/24 20:37 Fluid Color Pale yellow 08/23/24 14:30 Fluid Appearance Cloudy 08/23/24 14:30 Fluid Specific Grav 1.023 08/23/24 14:30 Fluid pH 7.5 08/23/24 14:30 Fluid WBC 124 /uL 08/23/24 14:30 Fluid RBC 1.000 10^3/uL 08/23/24 14:30 Fld Polynuclear WBCs # 0.004 08/23/24 14:30 Fld Polynuclear WBCs % 3.200 % 08/23/24 14:30 Fl Mononucl WBCs #(Auto) 0.120 08/23/24 14:30 Fl Mononuclear % Auto 96.800 % 08/23/24 14:30 Fld Crystal Laterality Ascities 08/23/24 14:30 Fluid Glucose 72.0 mg/dL 08/23/24 14:30 Fluid Total Protein 3.0 g/dL 08/23/24 14:30 Fluid Albumin 1.4 g/dL 08/23/24 14:30 Fluid LDH 99 U/L 08/23/24 14:30 Fluid Alk Phosphatase 27 IU/L 08/23/24 14:30 Fluid Cholesterol 43 mg/dL (0-200) 08/23/24 14:30 Fluid Triglycerides 20 mg/dL (0-150) 08/23/24 14:30 Fluid Uric Acid 4 mg/dL 08/23/24 14:30 Random Vancomycin 14.0 ug/mL (20.0-40.0) L 08/23/24 05:28 Micro: Microbiology 08/21/24 22:14 Blood Culture - Preliminary Blood NEGATIVE TO DATE 08/21/24 22:19 Blood Culture - Preliminary Blood NEGATIVE TO DATE Other data: Echocardiogram from 08/22/2024 moderate left ventricular hypertrophy. The LV ejection fraction around 65%. No gross wall motion abnormality. Moderate biatrial enlargement. Minimally thickened aortic valve with features of aortic valve sclerosis Severe mitral annular calcification. Trace to mild mitral regurgitation. Features of small to moderate pericardial effusion mostly on the posterolateral aspect of the ventricle There are no intracardiac masses. Compared to the study from 07/20/2023, no significant change in the pericardial effusion/ejection fraction A&P Assessment and plan (1) Congestive heart failure: Patient seems to have heart failure with a preserved LV ejection fraction. Severe LV diastolic dysfunction and the renal failure are contributing factors. Coronary ischemia causing this cannot be excluded. But my clinical suspicion may be low. Apparently had no significant coronary lesions by angiogram in 2021. Normal LV size ejection fraction of 60%. No gross wall motion Qualifiers: Heart failure chronicity: unspecified Heart failure type: unspecified Qualified Code(s): I50.9 - Heart failure, unspecified (2) Atherosclerosis of coronary artery: Had a PCI of the obtuse marginal artery in the past. Coronary angiogram in 2021 revealed only mild diffuse coronary disease with a patent stent in the OM branch. this patient never had any chest pain. the troponin T did not have any significant delta Qualifiers: Associated angina: without angina Coronary Disease-Associated Artery/Lesion type: [place] artery [place] vs. transplanted heart: [place] heart Qualified Code(s): I25.10 - Atherosclerotic heart disease of [place] coronary artery without angina pectoris (3) History of arteriovenous graft: Appears to be patent. In the left upper extremity. (4) Dyslipidemia: May continue on the current medication (5) Abdominal ascites: Appears to be from cirrhosis of the liver. Currently the abdominal girth is coming down Qualifiers: Ascites type: other type Qualified Code(s): R18.8 - Other ascites (6) End stage renal disease on dialysis: (7) Anemia in chronic kidney disease, on chronic dialysis: Most likely anemia of chronic kidney disease (8) COPD (chronic obstructive pulmonary disease): Clinically seems to be stable. May continue on the current management. Qualifiers: COPD type: chronic bronchitis Chronic bronchitis type: mixed simple and mucopurulent Qualified Code(s): J41.8 - Mixed simple and mucopurulent chronic bronchitis (9) Acute respiratory failure with hypoxia: Most likely related with heart failure. The respiratory status seems to be fairly stable at this time. (10) Benign hypertension: The blood pressure is fairly under control. May continue the current medications Plan I discussed with the patient in detail about the management options. Most likely his heart failure is from the fluid overload. We can do a Myocardial perfusion imaging to look for any evidence of ischemia. The patient is not interested in doing any stress test or angiogram at this time. According him, he has no chest pain and is feeling okay since the dialysis with regard to his shortness of breath. so a shared decision was made to hold off on any further ischemic workup at this point PDMP PDMP Reviewed: Not Reviewed Attestations Medical Necessity Statement*: deferred to the primary Coding Level of Care Code 10268 Diagnoses Congestive heart failure, unspecified HF chronicity, unspecified heart failure type I50.9 Heart failure chronicity: unspecified Heart failure type: unspecified Atherosclerosis of [place] coronary artery of [place] heart without angina pectoris I25.10 Associated angina: without angina Coronary Disease-Associated Artery/Lesion type: [place] artery [place] vs. transplanted heart: [place] heart History of arteriovenous graft Z98.890 Dyslipidemia E78.5 Other ascites R18.8 Ascites type: other type End stage renal disease on dialysis N18.6; Z99.2 Anemia in chronic kidney disease, on chronic dialysis N18.6; D63.1; Z99.2 Mixed simple and mucopurulent chronic bronchitis J41.8 COPD type: chronic bronchitis Chronic bronchitis type: mixed simple and mucopurulent Acute respiratory failure with hypoxia J96.01 Benign hypertension I10
[2024-08-23] MEDS: pantoprazole 40 mg SDV IVP (20:12)
[2024-08-23] MEDS: VANCOMYCIN ADD-Vantage 1,000 MG in 0.9% NaCl ADD-Vantage 250 ML 250 MG IV (20:12)
[2024-08-23] MEDS: atorvastatin 40 mg Tablet PO (20:14)
[2024-08-23 20:48] LABS: Glucose Point of Care 98 mg/dL (70-110)
[2024-08-23] MEDS: ipratropium-albuterol 3 mL Neb INHALATION (22:49)
[2024-08-24] VITALS (12 sets, daily range): BP systolic 107–129; BP diastolic 49–73; PULSE 58–69; RESP 16–18; TEMP 36.3–37.2; O2SAT 95–99
[2024-08-24] MEDS: hyDRALAzine 50 mg Tablet 100 MG PO ×3 (00:34→16:57)
[2024-08-24] MEDS: morphine 4 mg/mL SDV 1 mL 2 MG IVP ×2 (00:37→04:34)
[2024-08-24] MEDS: piperacillin-tazobactam 3.375 GM in sodium chloride 0.9% (plus) 50 ML IV ×2 (04:33→16:57)
[2024-08-24 06:38] LABS: Basophils # 0.1 10^3/uL (0.0-0.1); Basophils % 2.2 %; Eosinophils # 0.4 10^3/uL (0.0-0.8); Eosinophils % 8.9 %; Lymphocytes # 0.7 10^3/uL (0.8-4.8); Lymphocytes % 16.4 %; Mean Corpuscular HGB Conc 29.6 g/dL (30-55); Mean Corpuscular Hemoglobin 27.8 pg (27-33); Mean Corpuscular Volume 93.8 fl (82-101); Monocytes # 0.4 10^3/uL (0.2-0.9); Monocytes % 10.6 %; Neutrophils # 2.56 10^3/uL (1.8-7.7); Neutrophils % 61.7 %; Nucleated Red Blood Cells % 0 %; Platelet Count 199 10^3/cmm (157-399); Red Blood Count 2.88 10^6/uL (3.85-5.65); Red Cell Distribution Width 18.2 % (12.1-15.1); White Blood Count 4.15 10^3/uL (3.29-11.43)
[2024-08-24 06:41] LABS: Glucose Point of Care 82 mg/dL (70-110)
[2024-08-24 07:02] LABS: Alanine Aminotransferase 7 U/L (0-41); Albumin Level 2.4 g/dL (3.5-5.2); Alkaline Phosphatase 103 U/L (40-130); Anion Gap 12.2 (5-19); Aspartate Amino Transferase 10 U/L (0-40); Blood Urea Nitrogen 14 mg/dL (6-20); C Reactive Protein 34.3 mg/L (0.0-4.9); Calcium 9.4 mg/dL (8.5-10.5); Carbon Dioxide 28 mmol/L (22-29); Chloride 99 mmol/L (98-107); Creatinine Clr Calc Pharmacy 23.2366; Globulin 3.6 g/dL (1.3-4.6); Glomerular Filtration Rate 12.6 mL/min (90-130); Glucose 75 mg/dL (65-115); Magnesium 1.9 mg/dL (1.7-2.3); Osmolality Calculated 277 mOsm/kg (285-295); Phosphorus 5.7 mg/dL (2.5-4.5); Potassium 5.2 mmol/L (3.5-5.1); Sodium 134 mmol/L (136-145); Total Bilirubin 0.2 mg/dL (0.15-1.2)
[2024-08-24 07:44] LABS: Partial Thromboplastin Time 44.4 SECONDS (23.9-36.7)
--- NOTE | 2024-08-24 07:53 | P.PN_ITS ---
Subjective 2 Subjective: s/p HD yesterday Medications: Reviewed: Yes Vitals/I&O/Wt Last Vital Signs Temp 97.5 F L 08/24/24 07:16 Pulse 62 08/24/24 07:16 Resp 17 08/24/24 07:16 BP 112/63 08/24/24 07:16 Pulse Ox 97 08/24/24 07:16 O2 Del Method Room Air 08/24/24 07:16 O2 Flow Rate 3 08/24/24 04:00 08/23/24 08/24/24 08/24/24 22:59 06:59 14:59 Intake Total 540 / 1208 Balance 540 / -3292 Weight last 48 hrs Weight 95.617 kg Weight 95.889 kg Weight 100.9 kg Weight 102.104 kg Weight 102.104 kg Weight 99.609 kg Physical Exam 2 Narrative: awake , alert PEERLA S1S2 RRR per report Lungs with radha crackles per report Abd soft , non tender + edema Data 08/24/24 06:23 08/24/24 06:23 A&P Assessment and plan (1) End stage renal disease on dialysis: Plan 1. End-stage renal disease:HD yesterday , on TTS schedule as out pt , Advised low-sodium diet and 1500 mL fluid restriction 2. Hypertension: Resumed home meds 3. Anemia: TREY with HD 4. History of diastolic CHF, now with anasarca and pulmonary edema, aggressive HD as above 5. hyperkalemia , low k diet , k 5.2 today , will give a dose of kayexylate Patient evaluated using audiovisual cart. Time spent 40 minutes PDMP PDMP Reviewed: Not Reviewed Attestations 2 Medical Necessity Statement*: per medicine Coding Level of Care Code Acute Code for Chg Fwd Diagnoses End stage renal disease on dialysis N18.6; Z99.2
[2024-08-24 08:18] LABS: Procalcitonin 0.54 ng/mL (0-0.5)
[2024-08-24] MEDS: sevelamer 800 mg Tablet 1600 MG PO ×3 (08:51→20:31)
[2024-08-24] MEDS: minoxidil 10 mg Tablet PO ×3 (08:51→20:30)
[2024-08-24] MEDS: carvedilol 25 mg Tablet 37.5 MG PO ×2 (08:51→20:30)
--- NOTE | 2024-08-24 09:04 | P.PN_ITS ---
Subjective 2 Subjective: The patient seems to doing okay with no chest pain or any shortness of breath at this time. He is mainly complaining about generalized weakness/fatigue Medications: Medication Review Details: Current Medications Acetaminophen (Acetaminophen 325 Mg Tablet) 650 mg PO Q6H PRN PRN Reason: Mild/Mod Pain Or Temp >/= 101 Hydrocodone Bitart/Acetaminophen (Hydrocodone-Acetaminophen 5-325 Mg Tablet) 1 tab PO Q8H PRN PRN Reason: MODERATE PAIN Albuterol/Ipratropium (Ipratropium-Albuterol 3 Ml Neb) 3 ml INHALATION Q4H PRN PRN Reason: SHORTNESS OF BREATH Last Admin: 08/23/24 22:49 Dose: 3 ml Aspirin (Aspirin 81 Mg Ec Tablet) 81 mg PO QAM [facility] Last Admin: 08/24/24 04:40 Dose: Not Given Atorvastatin Calcium (Atorvastatin 40 Mg Tablet) 40 mg PO BEDTIME [facility] Last Admin: 08/23/24 20:14 Dose: 40 mg Carvedilol (Carvedilol 25 Mg Tablet) 37.5 mg PO Q12H [facility] Last Admin: 08/24/24 08:51 Dose: 37.5 mg Glucagon (Glucagon 1 Mg/Ml Kit 1 Ml) 1 mg IM ONCE PRN; Protocol PRN Reason: Adult Acute Hypoglycemia Nursing Prot. Hydralazine HCl (Hydralazine 50 Mg Tablet) 100 mg PO Q8H [facility] Last Admin: 08/24/24 08:51 Dose: 100 mg Dextrose (D5w) 500 mls @ 0 mls/hr IV ONCE PRN; Protocol PRN Reason: Adult Acute Hypoglycemia Prot Dextrose (D10w) 125 mls @ 750 mls/hr IV PRN PRN; Protocol PRN Reason: Adult Acute Hypoglycemia Nursing Protocol Dextrose (D10w) 250 mls @ 1,000 mls/hr IV PRN PRN; Protocol PRN Reason: Adult Acute Hypoglycemia Nursing Protocol Sodium Chloride (Sodium Chloride 0.9%) 1,000 mls @ 0 mls/hr IV .Q0M PRN PRN Reason: hypotension or symptomatic Albumin Human (Albumin) 12.5 gm in 50 mls @ 60 mls/hr IV PRN PRN PRN Reason: Hypotension and/or symptomatic Piperacillin Sod/Tazobactam (Sod 3.375 gm/ Sodium Chloride) 50 mls @ 12.5 mls/hr IV Q12H [facility] Last Admin: 08/24/24 04:33 Dose: 12.5 mls/hr Minoxidil (Minoxidil 10 Mg Tablet) 10 mg PO TID [facility] Last Admin: 08/24/24 08:51 Dose: 10 mg Naloxone HCl (Naloxone 0.4 Mg/Ml Sdv) 0.1 mg IVP Q2M PRN PRN Reason: OPIATERV Non-Formulary Medication (Ferric Citrate [Auryxia]) 0 tab .ROUTE .COMPLEX ARTEM Non-Formulary Medication (Vit B,M-Cr-Yhkt-Selen-Vit D3-E [Renaplex-D]) 1 tab PO QAM ARTEM Ondansetron HCl (Ondansetron 2 Mg/Ml Sdv 2 Ml) 4 mg IVP Q8H PRN PRN Reason: vomiting, or N/V if npo Pantoprazole Sodium (Pantoprazole 40 Mg Sdv) 40 mg IVP Q24H [facility] Last Admin: 08/23/24 20:12 Dose: 40 mg Sevelamer Carbonate (Sevelamer 800 Mg Tablet) 1,600 mg PO TID [facility] Last Admin: 08/24/24 08:51 Dose: 1,600 mg Vancomycin HCl (Vancomycin 1,000 Mg Sdv (Pharmacy Mix)) 0 mg XX PRN PRN PRN Reason: Pharmacy to Dose Vitals/I&O/Wt Last Vital Signs Temp 97.5 F L 08/24/24 07:16 Pulse 68 08/24/24 08:33 Resp 18 08/24/24 08:33 BP 112/63 08/24/24 07:16 Pulse Ox 98 08/24/24 08:33 O2 Del Method Nasal Cannula 08/24/24 08:33 O2 Flow Rate 3 08/24/24 08:33 08/23/24 08/24/24 08/24/24 22:59 06:59 14:59 Intake Total 540 / 1208 621.15 / 621.15 Balance 540 / -3292 621.15 / 621.15 Weight last 48 hrs Weight 210 lb 12.8 oz Weight 211 lb 6.4 oz Weight 222 lb 7.143 oz Weight 225 lb 1.6 oz Weight 225 lb 1.6 oz Physical Exam 2 Narrative: GENERAL: The patient is alert and oriented times three. Not in any acute distress. Chronically ill looking, somewhat emaciated HEENT: No significant pallor, icterus or lymphadenopathy.Oral cavity: There are no mucous membrane lesions. NECK: Trachea appears to be central. No masses noted. No JVD or thyromegaly appreciated. RESPIRATORY: Chest is symmetrical. No intercostals muscle retraction or any accessory muscle activation. There is no chest wall tenderness. Breath sounds are heard bilaterally. No rales or rhonchi heard. No evidence of any consolidation. BREASTS: Deferred. HEART: The heart sounds are normal. No S3 or S4. Short systolic murmur in the lower sternal border. No diastolic murmurs. No pericardial rub ABDOMEN: Abdomen is distended with a number ankle hernia. No tenderness. No organomegaly appreciated. Bowel sounds are normally heard. Markedly enlarged scrotum : Deferred. RECTAL: Deferred. LYMPHATIC: No lymphadenopathy noted in the neck. EXTREMITIES: 3+ edema both lower extremities. Features of chronic venous stasis and stasis dermatitis MUSCULOSKELETAL: No acute joint deformities or swelling SKIN: There are no significant rashes or ecchymosis NEUROPSYCHIATRIC: The patient is alert and oriented x3. Appears to be in a good mood. No tremors or rigidity noted. Data 08/25/24 05:37 08/25/24 05:37 Other Labs: Laboratory Last Values WBC 4.15 10^3/uL (3.29-11.43) 08/24/24 06: RBC 2.88 10^6/uL (3.85-5.65) L 08/24/24 06:23 Hgb 8.00 g/dL (11.27-16.99) L 08/24/24 06:23 Hct 27.0 % (37-53) L 08/24/24 06:23 MCV 93.8 fl (82-101) 08/24/24 06:23 MCH 27.8 pg (27-33) 08/24/24 06: MCHC 29.6 g/dL (30-55) L 08/24/24 06:23 RDW 18.2 % (12.1-15.1) H 08/24/24 06:23 Plt Count 199 10^3/cmm (157-399) 08/24/24 06:23 MPV 10.0 fL (7.4-10.4) 08/24/24 06:23 Neut % (Auto) 61.7 % 08/24/24 06:23 Lymph % (Auto) 16.4 % 08/24/24 06:23 Ray % (Auto) 10.6 % 08/24/24 06:23 Eos % (Auto) 8.9 % 08/24/24 06:23 Baso % (Auto) 2.2 % 08/24/24 06:23 Neut # (Auto) 2.56 10^3/uL (1.8-7.7) 08/24/24 06:23 Lymph # (Auto) 0.7 10^3/uL (0.8-4.8) L 08/24/24 06: Ray # (Auto) 0.4 10^3/uL (0.2-0.9) 08/24/24 06: Eos # (Auto) 0.4 10^3/uL (0.0-0.8) 08/24/24 06: Baso # (Auto) 0.1 10^3/uL (0.0-0.1) 08/24/24 06: Nucleated RBC % (auto) 0 % 08/24/24 06: Nucleated RBCs # 0.0 /100WBC 08/24/24 06:23 Differential Comment Yes 08/23/24 14:30 ESR 58 mm/hr (0-10) H 08/21/24 20:37 PT 15.70 SECONDS (12.1-14.9) H 08/22/24 13:36 INR 1.16 (0.8-1.2) 08/22/24 13:36 APTT 44.4 SECONDS (23.9-36.7) H 08/24/24 07:25 Specimen Type Arterial 08/21/24 20:48 Sample Site Radial, right 08/21/24 20:48 ABG pH 7.40 (7.35-7.45) 08/21/24 20:48 ABG pCO2 46.7 mmHg (35-45) H 08/21/24 20:48 ABG pO2 104.0 mmHg (80.0-100.0) H 08/21/24 20:48 ABG HCO3 28.7 mmol/L (22-26) H 08/21/24 20:48 ABG Base Excess 3.4 mmol/L (-2.0-2.0) H 08/21/24 20:48 Alexei Test Pos 08/21/24 20:48 Hematocrit 28.7 % (42-52) L 08/21/24 20:48 O2 Delivery Device Nc 08/21/24 20:48 O2 Liters/Min 3.0 % 08/21/24 20:48 Auto Adjudication Specialist ID [id number] 08/21/24 20:48 Sodium 134 mmol/L (136-145) L 08/24/24 06:23 Potassium 5.2 mmol/L (3.5-5.1) H 08/24/24 06:23 Chloride 99 mmol/L (98-107) 08/24/24 06:23 Carbon Dioxide 28 mmol/L (22-29) 08/24/24 06:23 Anion Gap 12.2 (5-19) 08/24/24 06:23 BUN 14 mg/dL (6-20) 08/24/24 06:23 Creatinine 5.1 mg/dL (0.7-1.2) H 08/24/24 06:23 GFR Calculation 12.6 mL/min (90-130) L 08/24/24 06:23 Glucose 75 mg/dL (65-115) 08/24/24 06:23 POC Glucose 82 mg/dL (70-110) 08/24/24 06:37 Calculated Osmolality 277 mOsm/kg (285-295) L 08/24/24 06:23 Lactic Acid 0.5 mmol/L (0.5-2.2) 08/21/24 22:14 Calcium 9.4 mg/dL (8.5-10.5) 08/24/24 06:23 Phosphorus 5.7 mg/dL (2.5-4.5) H 08/24/24 06:23 Magnesium 1.9 mg/dL (1.7-2.3) 08/24/24 06:23 Total Bilirubin 0.2 mg/dL (0.15-1.2) 08/24/24 06:23 AST 10 U/L (0-40) 08/24/24 06:23 ALT 7 U/L (0-41) 08/24/24 06:23 Alkaline Phosphatase 103 U/L (40-130) 08/24/24 06:23 Troponin T Baseline 296 ng/L (0-15) H* 08/21/24 20:37 Troponin T 120 Minute 287.5 ng/L (0-15) H 08/21/24 22:14 Delta Troponin T -8.5 ABS# (0-10) L 08/21/24 22:14 Troponin T Hi Sens 6Hr 297.6 ng/L (0-15) H 08/22/24 02:29 Troponin T Hi Sens 6Hr Delta 1.6 ng/L (0-12) 08/22/24 02:29 C-Reactive Protein 34.3 mg/L (0.0-4.9) H 08/24/24 06:23 NT-Pro-B Natriuret Pep > 25873 pg/mL (0-125) H 08/21/24 20:37 Total Protein 6.0 g/dL (6.6-8.7) L 08/24/24 06:23 Albumin 2.4 g/dL (3.5-5.2) L 08/24/24 06:23 Globulin 3.6 g/dL (1.3-4.6) 08/24/24 06:23 Triglycerides 88 mg/dL (0-150) 08/21/24 20:37 Cholesterol 102 mg/dL (0-200) 08/21/24 20:37 LDL Cholesterol, Calc 54 mg/dL (50-129) 08/21/24 20:37 HDL Cholesterol 30 mg/dL (60-100) L 08/21/24 20:37 LDL/HDL Ratio 1.80 RATIO (0.00-3.22) 08/21/24 20:37 Cholesterol/HDL Ratio 3.40 mg/dL (1.0-5.00) 08/21/24 20:37 Procalcitonin 0.54 ng/mL (0-0.5) H 08/24/24 06:23 TSH 5.26 uIU/mL (0.27-4.20) H 08/21/24 20:37 Fluid Color Pale yellow 08/23/24 14:30 Fluid Appearance Cloudy 08/23/24 14:30 Fluid Specific Grav 1.023 08/23/24 14:30 Fluid pH 7.5 08/23/24 14:30 Fluid WBC 124 /uL 08/23/24 14:30 Fluid RBC 1.000 10^3/uL 08/23/24 14:30 Fld Polynuclear WBCs # 0.004 08/23/24 14:30 Fld Polynuclear WBCs % 3.200 % 08/23/24 14:30 Fl Mononucl WBCs #(Auto) 0.120 08/23/24 14:30 Fl Mononuclear % Auto 96.800 % 08/23/24 14:30 Fld Crystal Laterality Ascities 08/23/24 14:30 Fluid Glucose 72.0 mg/dL 08/23/24 14:30 Fluid Total Protein 3.0 g/dL 08/23/24 14:30 Fluid Albumin 1.4 g/dL 08/23/24 14:30 Fluid LDH 99 U/L 08/23/24 14:30 Fluid Alk Phosphatase 27 IU/L 08/23/24 14:30 Fluid Cholesterol 43 mg/dL (0-200) 08/23/24 14:30 Fluid Triglycerides 20 mg/dL (0-150) 08/23/24 14:30 Fluid Uric Acid 4 mg/dL 08/23/24 14:30 Random Vancomycin 14.0 ug/mL (20.0-40.0) L 08/23/24 05:28 A&P Assessment and plan (1) Congestive heart failure: Patient seems to have heart failure with a preserved LV ejection fraction. Severe LV diastolic dysfunction and the renal failure are contributing factors. Coronary ischemia causing this cannot be excluded. But my clinical suspicion may be low. Currently the heart failure seems to be compensated. Qualifiers: Heart failure chronicity: unspecified Heart failure type: unspecified Qualified Code(s): I50.9 - Heart failure, unspecified (2) Atherosclerosis of coronary artery: Had a PCI of the obtuse marginal artery in the past. Coronary angiogram in 2021 revealed only mild diffuse coronary disease with a patent stent in the OM branch. this patient never had any chest pain. the troponin T did not have any significant delta. Discussed about doing a stress test to further evaluate. Patient is not wanting to go for this. He seems to understand implications. Qualifiers: Associated angina: without angina Coronary Disease-Associated Artery/Lesion type: [place] artery [place] vs. transplanted heart: [place] heart Qualified Code(s): I25.10 - Atherosclerotic heart disease of [place] coronary artery without angina pectoris (3) History of arteriovenous graft: Appears to be patent. In the left upper extremity. (4) Dyslipidemia: May continue on the current medication (5) Abdominal ascites: Appears to be from cirrhosis of the liver. The ascites is improving. Qualifiers: Ascites type: other type Qualified Code(s): R18.8 - Other ascites (6) End stage renal disease on dialysis: Patient seems to respond to the dialysis. Continue on the current management. (7) Anemia in chronic kidney disease, on chronic dialysis: The hemoglobin seems to be remaining stable. May continue on the current measures. (8) COPD (chronic obstructive pulmonary disease): Clinically seems to be stable. May continue on the current management. Qualifiers: COPD type: chronic bronchitis Chronic bronchitis type: mixed simple and mucopurulent Qualified Code(s): J41.8 - Mixed simple and mucopurulent chronic bronchitis (9) Acute respiratory failure with hypoxia: Most likely related with heart failure. The respiratory status seems to be fairly stable at this time. (10) Benign hypertension: The blood pressure is fairly under control. May continue the current medications Plan I discussed with the patient in detail about the management options. Most likely his heart failure is from the fluid overload. We can do a Myocardial perfusion imaging to look for any evidence of ischemia. The patient is not interested in doing any stress test or angiogram at this time. According him, he has no chest pain and is feeling okay since the dialysis with regard to his shortness of breath. so a shared decision was made to hold off on any further ischemic workup at this point May continue on the current management PDMP PDMP Reviewed: Not Reviewed Attestations 2 Medical Necessity Statement*: Deferred to the primary Coding Level of Care Code 55440 Diagnoses Congestive heart failure, unspecified HF chronicity, unspecified heart failure type I50.9 Heart failure chronicity: unspecified Heart failure type: unspecified Atherosclerosis of [place] coronary artery of [place] heart without angina pectoris I25.10 Associated angina: without angina Coronary Disease-Associated Artery/Lesion type: [place] artery [place] vs. transplanted heart: [place] heart History of arteriovenous graft Z98.890 Dyslipidemia E78.5 Other ascites R18.8 Ascites type: other type End stage renal disease on dialysis N18.6; Z99.2 Anemia in chronic kidney disease, on chronic dialysis N18.6; D63.1; Z99.2 Mixed simple and mucopurulent chronic bronchitis J41.8 COPD type: chronic bronchitis Chronic bronchitis type: mixed simple and mucopurulent Acute respiratory failure with hypoxia J96.01 Benign hypertension I10
[2024-08-24 10:40] LABS: Glucose Point of Care 78 mg/dL (70-110)
[2024-08-24] MEDS: HYDROcodone-acetaminophen 5-325 mg Tablet 1 TAB PO (11:30)
--- NOTE | 2024-08-24 16:07 | PM.PN ---
Subjective Subjective: Patient was seen this fluid he continues to complain of shortness of breath fluid overload no chest pain, rotations, abdominal distention Vitals/I&O/Wt Last Vital Signs Temp 97.6 F 08/24/24 15:39 Pulse 58 L 08/24/24 15:39 Resp 16 08/24/24 15:39 BP 126/67 08/24/24 15:39 Pulse Ox 99 08/24/24 15:39 O2 Del Method Nasal Cannula 08/24/24 15:39 O2 Flow Rate 2 08/24/24 15:39 08/24/24 08/24/24 08/24/24 06:59 14:59 22:59 Intake Total 911.15 / 911.15 Balance 911.15 / 911.15 Weight last 48 hrs Weight 95.617 kg Weight 95.889 kg Weight 100.9 kg Weight 102.104 kg Weight 102.104 kg Physical Exam Const: COMMON NORMALS: no acute distress and patient oriented x3 Resp: COMMON NORMALS: normal respiratory effort, No retractions and No use of accessory muscles AUSCULTATION: crackles and wheezes Cardio: COMMON NORMALS: regular rate, regular rhythm, S1 normal heart sound present and S2 normal heart sound present RATE: regular rate RHYTHM: regular rhythm HEART SOUNDS: S1 normal heart sound present and S2 normal heart sound present GI: COMMON NORMALS: Normal to inspection, nondistended, normoactive bowel sounds present and non-tender Extremity: NARRATIVE EXTREMITY EXAM: 2+ edema Neuro: COMMON NORMALS: patient oriented x3 Data 08/24/24 06:23 08/24/24 06:23 Micro: Microbiology 08/23/24 14:30 Gram Stain - Final Peritoneal Fluid Anaerobic Culture - Preliminary A&P Assessment and plan (1) Severe hypertension: (2) Congestive heart failure: Qualifiers: Heart failure chronicity: unspecified Heart failure type: unspecified Qualified Code(s): I50.9 - Heart failure, unspecified (3) Atherosclerosis of coronary artery: Qualifiers: Associated angina: without angina Coronary Disease-Associated Artery/Lesion type: [place] artery [place] vs. transplanted heart: [place] heart Qualified Code(s): I25.10 - Atherosclerotic heart disease of [place] coronary artery without angina pectoris (4) History of arteriovenous graft: (5) Dyslipidemia: (6) Umbilical hernia: (7) Abdominal ascites: Qualifiers: Ascites type: other type Qualified Code(s): R18.8 - Other ascites (8) End stage renal disease on dialysis: (9) Anemia in chronic kidney disease, on chronic dialysis: (10) COPD (chronic obstructive pulmonary disease): Qualifiers: COPD type: chronic bronchitis Chronic bronchitis type: mixed simple and mucopurulent Qualified Code(s): J41.8 - Mixed simple and mucopurulent chronic bronchitis (11) Noncompliance: (12) Acute respiratory failure with hypoxia: (13) Fluid overload: Plan Acute hypoxic respiratory failure - Secondary to fluid overload, generalized anasarca, diastolic CHF exacerbation, missed dialysis -Evidence of acute respiratory distress due to fluid overload, requiring urgent dialysis -Plan - Nephrology consulted for dialysis - Continues to be fluid overloaded, continue dialysis Abdominal distention, status post paracentesis NSTEMI - No chest pain complaints - Aspirin, statin, beta-patricia - Heparin drip for 24 hours - Cardiac echo CONCLUSIONS Moderate left ventricular hypertrophy. The LV ejection fraction around 65%. No gross wall motion abnormality. Moderate biatrial enlargement. Minimally thickened aortic valve with features of aortic valve sclerosis Severe mitral annular calcification. Trace to mild mitral regurgitation. Features of small to moderate pericardial effusion mostly on the posterolateral aspect of the ventricle There are no intracardiac masses. Compared to the study from 07/20/2023, no significant change in the pericardial effusion/ejection fraction - Cardiology consulted, medical managment elevated crp, procal, WBC -blood culture - Does complain of scrotal pain, scrotal ultrasound shows evidence of epididymitis - Will place on broad-spectrum antibiotic therapy Right scrotal mass? / scrotum [id number] IMPRESSION: 1. The LEFT testicle is identified and shows no evidence of mass or torsion. 2. Findings in the LEFT epididymis that suggest epididymitis. 3. No normal RIGHT testicle identified. The RIGHT scrotal compartment is virtually filled with heterogeneous masslike density. Considerations would include large complex cystic intratesticular neoplasm, chronic hematocele or pyocele or herniated mass into the RIGHT compartment. Similar findings identified on the prior study 09/18/2023. 4. Extensive scrotal enlargement with scrotal wall edema. - Discussed with radiology this might just be a fluid collection from his heart failure, end-stage renal disease -Nonetheless we will have him follow-up with urology as outpatient History of abdominal ascites, 4 L paracentesis Hypertension - Resume patient's hydralazine, Coreg, minoxidil Acute on chronic anemia - Monitor hemoglobin, iron studies Hypoglycemia - Hypoglycemia protocol History of noncompliance, encourage compliance Complaints of left knee pain? Possible cellulitis left lower extremity - Patient apparently had a workup in [place], with arthrocentesis with evidence of infection - However was discharged on p.o. antibiotics? - Complaints of left knee pain -Does have erythema, left leg, possible cellulitis - CT knee CT/CT knee LT w con [id number] IMPRESSION: 1. Subcutaneous soft tissue edema, likely on the basis of cellulitis. Third spacing/anasarca and lymphedema may also be considered. No soft tissue gas, obvious drainable fluid collections or acute osseous findings. 2. No significant knee joint effusion or osseous regional erosions and therefore septic arthritis is highly unlikely. -Unlikely to be septic arthritis - Start IV antibiotics for overlying cellulitis Full code Heparin for DVT prophylaxis plan for today stop heparin drip, coutinue ivabx, nstemi, fluid overload PDMP PDMP Reviewed: Not Reviewed Attestations Medical Necessity Statement*: Patient requires hospitalization fluid overload, requiring dialysis, Diagnoses Severe hypertension I10 Congestive heart failure, unspecified HF chronicity, unspecified heart failure type I50.9 Heart failure chronicity: unspecified Heart failure type: unspecified Atherosclerosis of [place] coronary artery of [place] heart without angina pectoris I25.10 Associated angina: without angina Coronary Disease-Associated Artery/Lesion type: [place] artery [place] vs. transplanted heart: [place] heart History of arteriovenous graft Z98.890 Dyslipidemia E78.5 Umbilical hernia K42.9 Other ascites R18.8 Ascites type: other type End stage renal disease on dialysis N18.6; Z99.2 Anemia in chronic kidney disease, on chronic dialysis N18.6; D63.1; Z99.2 Mixed simple and mucopurulent chronic bronchitis J41.8 COPD type: chronic bronchitis Chronic bronchitis type: mixed simple and mucopurulent Noncompliance Z91.199 Acute respiratory failure with hypoxia J96.01 Fluid overload E87.70
[2024-08-24 16:35] LABS: Glucose Point of Care 96 mg/dL (70-110)
[2024-08-24 20:07] LABS: Glucose Point of Care 113 mg/dL (70-110)
[2024-08-24] MEDS: atorvastatin 40 mg Tablet PO (20:31)
[2024-08-24] MEDS: oxyCODONE 5 mg IR Tab/Cap 7.5 MG PO (20:31)
[2024-08-24] MEDS: pantoprazole 40 mg SDV IVP (21:55)
[2024-08-25] VITALS (10 sets, daily range): BP systolic 103–150; BP diastolic 50–79; PULSE 59–72; RESP 16–20; TEMP 36.4–36.9; O2SAT 96–97
[2024-08-25] MEDS: hyDRALAzine 50 mg Tablet 100 MG PO (01:33)
[2024-08-25] MEDS: oxyCODONE 5 mg IR Tab/Cap 7.5 MG PO ×2 (03:29→12:07)
[2024-08-25] MEDS: piperacillin-tazobactam 3.375 GM in sodium chloride 0.9% (plus) 50 ML IV (04:25)
[2024-08-25 06:22] LABS: Glucose Point of Care 86 mg/dL (70-110)
[2024-08-25 06:22] LABS: Basophils # 0.1 10^3/uL (0.0-0.1); Basophils % 1.8 %; Eosinophils # 0.4 10^3/uL (0.0-0.8); Eosinophils % 8.5 %; Hematocrit 26.4 % (37-53); Lymphocytes # 0.6 10^3/uL (0.8-4.8); Lymphocytes % 14.1 %; Mean Corpuscular HGB Conc 29.9 g/dL (30-55); Mean Corpuscular Hemoglobin 28.1 pg (27-33); Mean Platelet Volume 10.5 fL (7.4-10.4); Monocytes # 0.5 10^3/uL (0.2-0.9); Monocytes % 10.4 %; Neutrophils # 2.81 10^3/uL (1.8-7.7); Nucleated Red Blood Cells % 0 %; Platelet Count 206 10^3/cmm (157-399); Red Blood Count 2.81 10^6/uL (3.85-5.65); Red Cell Distribution Width 18.3 % (12.1-15.1); White Blood Count 4.33 10^3/uL (3.29-11.43)
[2024-08-25 06:41] LABS: Vancomycin Random 20.4 ug/mL (20.0-40.0)
[2024-08-25 06:47] LABS: Alanine Aminotransferase 6 U/L (0-41); Albumin Level 2.3 g/dL (3.5-5.2); Alkaline Phosphatase 107 U/L (40-130); Anion Gap 15.5 (5-19); Aspartate Amino Transferase 10 U/L (0-40); Blood Urea Nitrogen 18 mg/dL (6-20); C Reactive Protein 32.4 mg/L (0.0-4.9); Calcium 9.1 mg/dL (8.5-10.5); Carbon Dioxide 27 mmol/L (22-29); Chloride 97 mmol/L (98-107); Creatinine Clr Calc Pharmacy 19.3393; Globulin 3.7 g/dL (1.3-4.6); Glucose 72 mg/dL (65-115); Osmolality Calculated 278 mOsm/kg (285-295); Phosphorus 6.4 mg/dL (2.5-4.5); Potassium 5.5 mmol/L (3.5-5.1); Sodium 134 mmol/L (136-145); Total Bilirubin 0.2 mg/dL (0.15-1.2)
[2024-08-25 07:59] LABS: Procalcitonin 0.44 ng/mL (0-0.5)
--- NOTE | 2024-08-25 11:09 | P.PN_ITS ---
Subjective 2 Subjective: getting hD Medications: Reviewed: Yes Vitals/I&O/Wt Last Vital Signs Temp 98.1 F 08/25/24 09:05 Pulse 69 08/25/24 10:00 Resp 17 08/25/24 10:00 BP 142/71 08/25/24 09:05 Pulse Ox 97 08/25/24 10:00 O2 Del Method Nasal Cannula 08/25/24 10:00 O2 Flow Rate 3 08/25/24 10:00 08/24/24 08/25/24 08/25/24 22:59 06:59 14:59 Intake Total 708.85 / 1620.00 0 / 1620.00 50 / 50 Balance 708.85 / 1620.00 0 / 1620.00 50 / 50 Weight last 48 hrs Weight 98.157 kg Weight 95.617 kg Weight 95.889 kg Weight 100.9 kg Physical Exam 2 Narrative: awake , alert PEERLA S1S2 RRR per report Lungs with radha crackles per report Abd soft , non tender + edema Data 08/25/24 05:37 08/25/24 05:37 Micro: Microbiology 08/23/24 14:30 Gram Stain - Final Peritoneal Fluid Anaerobic Culture - Preliminary A&P Assessment and plan (1) End stage renal disease on dialysis: Plan 1. End-stage renal disease:HD today, on TTS schedule as out pt , Advised low- sodium diet and 1500 mL fluid restriction 2. Hypertension: Resumed home meds 3. Anemia: TREY with HD 4. History of diastolic CHF, now with anasarca and pulmonary edema, aggressive HD as above 5. hyperkalemia , low k diet , h as above Patient evaluated using audiovisual cart. Time spent 40 minutes PDMP PDMP Reviewed: Not Reviewed Attestations 2 Medical Necessity Statement*: per howie Coding Level of Care Code Acute Code for Chg Fwd Diagnoses End stage renal disease on dialysis N18.6; Z99.2
[2024-08-25 11:39] LABS: Glucose Point of Care 81 mg/dL (70-110)
--- NOTE | 2024-08-25 13:00 | P.DS_ITS ---
Discharge Providers Date of Admission: 08/21/24 20:02 Date of Discharge: August 25, 2024 Attending Provider at Admission: Tiarra Villegas MD Attending Provider at Discharge: Tunde Umana MD Primary Care Provider: Delio Salazar MD Diagnoses at Discharge Discharge Diagnosis (1) End stage renal disease on dialysis: Status: Acute Reason for Visit Reason for Visit: fluid volume overload Room 259 Hospital Course Hospital Course Mal Gibbs is a 43 year old male with a past medical history of end- stage renal disease on dialysis, history of COPD, diastolic CHF, pulm hypertension, hypertension, history of smoking, anemia, noncompliance, who presents to [facility] due to shortness of breath, edema, anasarca, left knee pain. Patient was transferred from [facility], patient tells me that he missed dialysis on Thursday, he has been developing shortness of breath, increased edema bilateral extremities, abdominal edema, scrotal edema, feeling short of breath, denies any fevers, no chills, no nausea, no vomiting, no chest pain, no cough, he is gained about 16 pounds he tells me, he is also due for a paracentesis tomorrow he tells me. He tells me also his left knee has been bothering him, he was admitted in [place], he tells me he had arthrocentesis and they told him he had a joint space infection so they put him on oral antibiotics? He does complain of severe left knee pain, does have a umbilical hernia, no pain complaints, reducible, during our conversation he appears to be in mild to moderate respiratory distress, he sitting up leaning forward, with tachypnea, crackles in all lung cantu, nasal flaring, intercostal retractions suprasternal retractions, uncomfortable due to anasarca, abdominal wall edema, Patient presented to [facility] for Patient mated to [facility] acute hypoxic respiratory failure sec to fluid overload, generalized anasarca, diastolic CHF missed dialysis required urgent inpatient dialysis, overall clinically improved For his abdominal distention, recurrent ascites required inpatient paracentesis NSTEMI, no chest pain complaints, cardiology was consulted received heparin drip for 48 hours, overall clinically improved, follow-up with cardiology as outpatient For epididymitis received IV antibiotics during hospitalization, discharged on p.o. antibiotics For right scrotal mass, follow-up with urology as outpatient On discharge a detailed discussion with him about compliance, compliance with discharge, fluid restrictions -please your sexual partners be tested for gonorrhea and chlamydia - Please abstain from sexual activity until your symptoms resolve, you complete your 10-day course of doxycycline - Please have your sexual partners be evaluated and treated - For your right testicular swelling, mass, please follow-up with urology in 1 week - Please follow-up with your primary care provider in 1 week - Follow-up with cardiology Physical Exam Const: COMMON NORMALS: no acute distress and patient oriented x3 Resp: COMMON NORMALS: normal respiratory effort, No retractions, No use of accessory muscles and clear to auscultation bilaterally AUSCULTATION: clear to auscultation bilaterally Cardio: COMMON NORMALS: regular rate, regular rhythm, S1 normal heart sound present and S2 normal heart sound present RATE: regular rate RHYTHM: regular rhythm HEART SOUNDS: S1 normal heart sound present and S2 normal heart sound present GI: COMMON NORMALS: Normal to inspection, nondistended, normoactive bowel sounds present and non-tender Extremity: COMMON NORMALS: no pedal edema Neuro: COMMON NORMALS: patient oriented x3 Psych: COMMON NORMALS: mental status grossly normal Discharge Data Studies Completed and Pending Completed Studies During Hospitalization Category Date Time Status CT knee LT w con [id number] Routine Cat Scan 08/21/24 20:[address] pelvis w con* [id number] Routine Cat Scan 08/22/24 12:03 Completed XR chest 1V portable [id number] Routine Exams 08/21/24 20:25 Completed CV. echo complete* [id number] Routine Ultrasound 08/22/24 21:34 [place] w [id number] Routine Ultrasound 08/23/24 12:03 Completed US scrotum [id number] Routine Ultrasound 08/22/24 09:26 Completed Pending at discharge Category Date Time Status Amylase, Peritoneal Fluid Routine Lab 08/22/24 12:04 Received Anaerobic Culture Routine Lab 08/22/24 12:04 Results Blood Culture Routine Lab 08/21/24 22:19 Results Body Fluid Culture & GS Routine Lab 08/22/24 12:04 Results Chlamydia / Gonorrhea OZH Stat Lab 08/25/24 12:50 Uncollected HEP ACUTE [Hepatitis Acute Panel] Routine Lab 08/25/24 12:50 Ordered HIV 1&2 Antigen & Antibody Stat Lab 08/25/24 12:50 Ordered Mycobacteria, Culture w/Fluor Routine Lab 08/22/24 12:04 Results Urinalysis Routine Lab 08/21/24 20:25 Uncollected Vancomycin Trough Timed Lab 08/26/24 08:00 Ordered Cytology [PTH] Routine Pth 08/22/24 14:30 Received Radiology Impressions Chest X-Ray 08/21/24 20:25 IMPRESSION: 1. Accentuated cardiac silhouette size and vascularity. See discussion above. 2. New bilateral basilar patchy opacities. Probable small left pleural effusion. See discussion above. Clinical correlation follow-up exam should be obtained. 3. Scattered high-density foci projecting over the right shoulder/axillary region as described. Knee CT 08/21/24 20:42 IMPRESSION: 1. Subcutaneous soft tissue edema, likely on the basis of cellulitis. Third spacing/anasarca and lymphedema may also be considered. No soft tissue gas, obvious drainable fluid collections or acute osseous findings. 2. No significant knee joint effusion or osseous regional erosions and therefore septic arthritis is highly unlikely. Scrotum Ultrasound 08/22/24 09:26 IMPRESSION: 1. The LEFT testicle is identified and shows no evidence of mass or torsion. 2. Findings in the LEFT epididymis that suggest epididymitis. 3. No normal RIGHT testicle identified. The RIGHT scrotal compartment is virtually filled with heterogeneous masslike density. Considerations would include large complex cystic intratesticular neoplasm, chronic hematocele or pyocele or herniated mass into the RIGHT compartment. Similar findings identif ied on the prior study 09/18/2023. 4. Extensive scrotal enlargement with scrotal wall edema. Pelvis CT 08/22/24 12:03 IMPRESSION: 1. Marked ascites and moderate anasarca. 2. Stable inguinal adenopathy. Paracentesis Ultrasound 08/23/24 12:03 IMPRESSION: Uncomplicated paracentesis yielding 4500 ml of peritoneal fluid. Laboratory Results WBC 4.33 10^3/uL (3.29-11.43) 08/25/24 05:37 RBC 2.81 10^6/uL (3.85-5.65) L 08/25/24 05:37 Hgb 7.90 g/dL (11.27-16.99) L 08/25/24 05:37 Hct 26.4 % (37-53) L 08/25/24 05:37 MCV 94.0 fl (82-101) 08/25/24 05:37 MCH 28.1 pg (27-33) 08/25/24 05:37 MCHC 29.9 g/dL (30-55) L 08/25/24 05:37 RDW 18.3 % (12.1-15.1) H 08/25/24 05:37 Plt Count 206 10^3/cmm (157-399) 08/25/24 05:37 MPV 10.5 fL (7.4-10.4) H 08/25/24 05:37 Neut % (Auto) 65.0 % 08/25/24 05:37 Lymph % (Auto) 14.1 % 08/25/24 05:37 [place] % (Auto) 10.4 % 08/25/24 05:37 Eos % (Auto) 8.5 % 08/25/24 05:37 Baso % (Auto) 1.8 % 08/25/24 05:37 Neut # (Auto) 2.81 10^3/uL (1.8-7.7) 08/25/24 05:37 Lymph # (Auto) 0.6 10^3/uL (0.8-4.8) L 08/25/24 05:37 [place] # (Auto) 0.5 10^3/uL (0.2-0.9) 08/25/24 05:37 Eos # (Auto) 0.4 10^3/uL (0.0-0.8) 08/25/24 05:37 Baso # (Auto) 0.1 10^3/uL (0.0-0.1) 08/25/24 05:37 Nucleated RBC % (auto) 0 % 08/25/24 05:37 Nucleated RBCs # 0.0 /100WBC 08/25/24 05:37 Differential Comment Yes 08/23/24 14:30 ESR 58 mm/hr (0-10) H 08/21/24 20:37 PT 15.70 SECONDS (12.1-14.9) H 08/22/24 13:36 INR 1.16 (0.8-1.2) 08/22/24 13:36 APTT 44.4 SECONDS (23.9-36.7) H 08/24/24 07:25 Specimen Type Arterial 08/21/24 20:48 Sample Site Radial, right 08/21/24 20:48 ABG pH 7.40 (7.35-7.45) 08/21/24 20:48 ABG pCO2 46.7 mmHg (35-45) H 08/21/24 20:48 ABG pO2 104.0 mmHg (80.0-100.0) H 08/21/24 20:48 ABG HCO3 28.7 mmol/L (22-26) H 08/21/24 20:48 ABG Base Excess 3.4 mmol/L (-2.0-2.0) H 08/21/24 20:48 Alexei Test Pos 08/21/24 20:48 Hematocrit 28.7 % (42-52) L 08/21/24 20:48 O2 Delivery Device Nc 08/21/24 20:48 O2 Liters/Min 3.0 % 08/21/24 20:48 Home Care Manager ID [id number] 08/21/24 20:48 Sodium 134 mmol/L (136-145) L 08/25/24 05:37 Potassium 5.5 mmol/L (3.5-5.1) H 08/25/24 05:37 Chloride 97 mmol/L (98-107) L 08/25/24 05:37 Carbon Dioxide 27 mmol/L (22-29) 08/25/24 05:37 Anion Gap 15.5 (5-19) 08/25/24 05:37 BUN 18 mg/dL (6-20) 08/25/24 05:37 Creatinine 6.2 mg/dL (0.7-1.2) H* 08/25/24 05:37 GFR Calculation 10.0 mL/min (90-130) L 08/25/24 05:37 Glucose 72 mg/dL (65-115) 08/25/24 05:37 POC Glucose 81 mg/dL (70-110) 08/25/24 11:27 Calculated Osmolality 278 mOsm/kg (285-295) L 08/25/24 05:37 Lactic Acid 0.5 mmol/L (0.5-2.2) 08/21/24 22:14 Calcium 9.1 mg/dL (8.5-10.5) 08/25/24 05:37 Phosphorus 6.4 mg/dL (2.5-4.5) H 08/25/24 05:37 Magnesium 2.0 mg/dL (1.7-2.3) 08/25/24 05:37 Total Bilirubin 0.2 mg/dL (0.15-1.2) 08/25/24 05:37 AST 10 U/L (0-40) 08/25/24 05:37 ALT 6 U/L (0-41) 08/25/24 05:37 Alkaline Phosphatase 107 U/L (40-130) 08/25/24 05:37 Troponin T Baseline 296 ng/L (0-15) H* 08/21/24 20:37 Troponin T 120 Minute 287.5 ng/L (0-15) H 08/21/24 22:14 Delta Troponin T -8.5 ABS# (0-10) L 08/21/24 22:14 Troponin T Hi Sens 6Hr 297.6 ng/L (0-15) H 08/22/24 02:29 Troponin T Hi Sens 6Hr Delta 1.6 ng/L (0-12) 08/22/24 02:29 C-Reactive Protein 32.4 mg/L (0.0-4.9) H 08/25/24 05:37 NT-Pro-B Natriuret Pep > 99459 pg/mL (0-125) H 08/21/24 20:37 Total Protein 6.0 g/dL (6.6-8.7) L 08/25/24 05:37 Albumin 2.3 g/dL (3.5-5.2) L 08/25/24 05:37 Globulin 3.7 g/dL (1.3-4.6) 08/25/24 05:37 Triglycerides 88 mg/dL (0-150) 08/21/24 20:37 Cholesterol 102 mg/dL (0-200) 08/21/24 20:37 LDL Cholesterol, Calc 54 mg/dL (50-129) 08/21/24 20:37 HDL Cholesterol 30 mg/dL (60-100) L 08/21/24 20:37 LDL/HDL Ratio 1.80 RATIO (0.00-3.22) 08/21/24 20:37 Cholesterol/HDL Ratio 3.40 mg/dL (1.0-5.00) 08/21/24 20:37 Procalcitonin 0.44 ng/mL (0-0.5) 08/25/24 05:37 TSH 5.26 uIU/mL (0.27-4.20) H 08/21/24 20:37 Fluid Color Pale yellow 08/23/24 14:30 Fluid Appearance Cloudy 08/23/24 14:30 Fluid Specific Grav 1.023 08/23/24 14:30 Fluid pH 7.5 08/23/24 14:30 Fluid WBC 124 /uL 08/23/24 14:30 Fluid RBC 1.000 10^3/uL 08/23/24 14:30 Fld Polynuclear WBCs # 0.004 08/23/24 14:30 Fld Polynuclear WBCs % 3.200 % 08/23/24 14:30 Fl Mononucl WBCs #(Auto) 0.120 08/23/24 14:30 Fl Mononuclear % Auto 96.800 % 08/23/24 14:30 Fld Crystal Laterality Ascities 08/23/24 14:30 Fluid Glucose 72.0 mg/dL 08/23/24 14:30 Fluid Total Protein 3.0 g/dL 08/23/24 14:30 Fluid Albumin 1.4 g/dL 08/23/24 14:30 Fluid LDH 99 U/L 08/23/24 14:30 Fluid Alk Phosphatase 27 IU/L 08/23/24 14:30 Fluid Cholesterol 43 mg/dL (0-200) 08/23/24 14:30 Fluid Triglycerides 20 mg/dL (0-150) 08/23/24 14:30 Fluid Uric Acid 4 mg/dL 08/23/24 14:30 Random Vancomycin 20.4 ug/mL (20.0-40.0) 08/25/24 05:37 Vitals Last Vital Signs Temp 98.1 F 08/25/24 09:05 Pulse 71 08/25/24 11:15 Resp 17 08/25/24 12:07 BP 150/71 08/25/24 11:15 Pulse Ox 97 08/25/24 10:00 O2 Del Method Nasal Cannula 08/25/24 10:00 O2 Flow Rate 3 08/25/24 10:00 Discharge Plan Discharge Patient Disposition: Home Condition: Stable Prescriptions: Continued Auryxia 210 mg iron Tablet See Rx Instructions .ROUTE .COMPLEX Rx Instructions: Take 420 mg (2 tablets) by mouth three times a day and 210mg (1 tablet) with snacks. aspirin 81 mg tablet,delayed release (DR/EC) 81 mg PO QAM Patient Comments: pt takes qhs on wednesdays RenaPlex-D 800 mcg-12.5 mg -2,000 unit tablet 1 tab PO QAM carvedilol 25 mg tablet 37.5 mg PO Q12H atorvastatin 40 mg tablet 40 mg PO BEDTIME hydralazine 100 mg tablet 100 mg PO Q8H minoxidil 2.5 mg tablet 10 mg PO TID sevelamer carbonate 800 mg tablet 1,600 mg PO TID Discharge Orders: Discharge Order (Routine); Ordered 08/25/24 Ordered By: Tunde Umana Referrals: Delio Salazar MD [Primary Care Provider, Family Practice] - 08/29/24 1:30 pm Referral Note: Ruba Hussein MD [Physician, Cardiology] Referral Note: Jay Conley MD [Referring, Urology] - 1 week Referral Note: right testicular mass Discharge Diet: Cardiac Discharge Activity: Resume usual activity Patient Instructions: Doxycycline (By mouth), Chlamydia (ED), Sexually Transmitted Diseases (ED), Epididymitis (ED), Gonorrhea (ED), Opioid Safety Activity Restrictions/Additional Instructions: -please your sexual partners be tested for gonorrhea and chlamydia - Please abstain from sexual activity until your symptoms resolve, you complete your 10-day course of doxycycline - Please have your sexual partners be evaluated and treated - For your right testicular swelling, mass, please follow-up with urology in 1 week - Please follow-up with your primary care provider in 1 week - Follow-up with cardiology Discharge Attestations Time Spent in Discharge Care*: greater than 30 min Status at Discharge: Cognitive status at discharge: cognitively intact , Behavioral status at discharge: cooperative , Quality Metrics Clinical Quality Measures [ No reported AMI, CVA or VTE this stay] Coding Level of Care Code 92261 Total time (in minutes) for Discharge: 45 Diagnoses End stage renal disease on dialysis N18.6; Z99.2
[2024-08-25 13:46] LABS: HIV 1 & 2 Antibody Non-Reactive (Non-Reactiv); HIV 1 & 2 Antigen Non-Reactive (Non-Reactiv)
[2024-08-25 13:49] LABS: Hepatitis A Antibody IgM Non-Reactive (Nonreactive); Hepatitis B Core IgM Non-Reactive (Nonreactive); Hepatitis B Surface Antigen Non-Reactive (Nonreactive); Hepatitis C Virus Antibody Non-Reactive (Nonreactive)
[2024-08-25] MEDS: sevelamer 800 mg Tablet 1600 MG PO (14:44)
[2024-08-25] MEDS: minoxidil 10 mg Tablet PO (14:44)
[2024-08-26 14:20] LABS: Amylase, Peritoneal Fluid <10 U/L
== END 2024-08-25 15:46 | disposition home or self-care (01) | DRG 280 ==
PROVIDERS: Admitting Provider Student in an Organized Health Care Education/Training Program; PCP Family Medicine; Visit Provider Family Medicine
DX: I13.2 Hypertensive heart and chronic kidney disease with heart failure and with stage 5 chronic kidney disease, or end stage renal disease (principal); I50.33 Acute on chronic diastolic (congestive) heart failure; I21.4 Non-ST elevation (NSTEMI) myocardial infarction; N18.6 End stage renal disease; J96.01 Acute respiratory failure with hypoxia; R18.8 Other ascites; L03.116 Cellulitis of left lower limb; Z99.2 Dependence on renal dialysis; Z91.158 Patient's noncompliance with renal dialysis for other reason; J41.8 Mixed simple and mucopurulent chronic bronchitis; I27.20 Pulmonary hypertension, unspecified; D63.1 Anemia in chronic kidney disease; M25.562 Pain in left knee; K42.9 Umbilical hernia without obstruction or gangrene; K74.60 Unspecified cirrhosis of liver; N45.1 Epididymitis; E16.2 Hypoglycemia, unspecified; M51.369 Other intervertebral disc degeneration, lumbar region without mention of lumbar back pain or lower extremity pain; F41.1 Generalized anxiety disorder; F41.0 Panic disorder [episodic paroxysmal anxiety]; F32.A Depression, unspecified; I25.10 Atherosclerotic heart disease of native coronary artery without angina pectoris; E78.5 Hyperlipidemia, unspecified; N50.89 Other specified disorders of the male genital organs; Z79.82 Long term (current) use of aspirin; Z99.81 Dependence on supplemental oxygen; Z86.711 Personal history of pulmonary embolism; Z87.891 Personal history of nicotine dependence; Z98.61 Coronary angioplasty status; Z86.16 Personal history of COVID-19
CPT/HCPCS: 36415; 36416; 36600; 49083; 71045; 72193; 73701; 76870; 80053; 80061; 80074; 80202; 80503; 82042; 82150; 82465; 82803; 82945; 82962; 83605; 83615; 83735; 83880; 83986; 84075; 84100; 84145; 84157; 84315; 84443; 84478; 84484; 84560; 85025; 85610; 85651; 85730; 86140; 87015; 87040; 87070; 87075; 87116; 87205; 87206; 87801; 87806; 88112; 89050; 90935; 93005; 93306; 94640; 94664; 96372; G0379; J1644; J2270; J2470; J2543; J3370; J7050; J9999; Q3014

== ENCOUNTER → 2024-09-12 11:49 | Day surgery (SDC) | payer MEDICARE, MEDICAID, SELFPAY ==
[2024-09-12 12:02] VITALS: BP 142/97; PULSE 65; RESP 18; TEMP 36.9; O2SAT 98; BMI 30.3
--- NOTE | 2024-09-12 12:05 | US_ITS ---
WS: [id number] ULTRASOUND-GUIDED PARACENTESIS CLINICAL INFORMATION: [facility] COMPARISON: None. Procedure Informed consent: The risks, benefits, and alternatives of the procedure were discussed with the patient. Verbal and written consent was obtained. Timeout: A timeout was performed to confirm the correct patient, procedure, and site. Preparation: A suitable skin site was identified. The patient was prepped and draped in usual sterile fashion. Lidocaine 1% was used for local anesthesia. Catheter: 4 Syriac One-step Yueh catheter. Side: LEFT lower quadrant. Fluid Volume: 5750 ml Color: Clear yellow DISPOSITION: Discarded safely. Complications: None. Patient disposition: Discharged from the department in stable condition. US/US paracentesis abd w [id number] IMPRESSION: Uncomplicated ultrasound-guided paracentesis. Removal of 5750cc
[2024-09-12 13:20] VITALS: BP 152/94; PULSE 61; RESP 18; TEMP 36.6; O2SAT 95
[2024-09-12 13:23] LABS: Cyto Order Verification Order Verified
[2024-09-12 13:29] LABS: Mononuclear #, Pertinoneal Fl 0.145 10^3/uL; Polynuclear # Cells, Perit 0.004 10^3/uL; RBC Pertioneal Fluid 2 10^3/uL; WBC Peritoneal Fluid 149 /uL
[2024-09-12 13:39] LABS: Appearance, Peritoneal Fluid Cloudy (Clear); Color, Peritoneal Fluid Pale Yellow (Pale Yellow); Pathology Referral Yes
[2024-09-12 13:57] LABS: Albumin Peritoneal Fluid 1.4 g/dL; Total Protein Peritoneal Fluid 3.3 g/dL
== END ==
LOC: GILAB 11:49
PROVIDERS: Internal Medicine; Radiology Neuroradiology; PCP Family Medicine
PROC: (CPT 49082; principal; 2024-09-12 12:00)
DX: R18.8 Other ascites (principal)
CPT/HCPCS: 49083; 80503; 82042; 84157; 87070; 87075; 87205; 88112; 88305; 89050

== ENCOUNTER 2024-09-18 17:48 | Inpatient (IN) | payer OTHER, MEDICAID, SELFPAY ==
[2024-09-18] VITALS (9 sets, daily range): BP systolic 164–206; BP diastolic 128–142; PULSE 87–120; RESP 18–22; TEMP 36.6; O2SAT 91–98; BMI 23.7
--- NOTE | 2024-09-18 18:02 | XRR_ITS ---
PROCEDURE INFORMATION: Exam: XR Chest Exam date and time: 09/18/2024 6:19 PM Age: 44 years old Clinical indication: Shortness of breath; C/O SOB. History of chf. TECHNIQUE: Imaging protocol: Radiologic exam of the chest. Views: 1 view. COMPARISON: CR (CHEST, ) 08/21/2024 9:09 PM FINDINGS: Lungs: Bibasilar scarring. No consolidation. Pleural spaces: Unremarkable. No pleural effusion. No pneumothorax. Heart/Mediastinum: Similar mild cardiomegaly. Bones/joints: Unremarkable. XR/XR chest 1V portable [id number] IMPRESSION: Similar mild cardiomegaly. No acute findings.
--- NOTE | 2024-09-18 18:09 | W.ED.SOB ---
HPI - SOB/Dyspnea General: Chief Complaint: Shortness of Breath/Dyspnea Stated Complaint: sob Time Seen by Provider: 09/18/24 18:02 History of Present Illness: HPI Narrative: Mr. Resendez presents to the emergency department with multiple complaints, including pain and breathing difficulties. He is a dialysis patient who was seen in the ED yesterday for similar issues. The patient reports ongoing pain, which he describes as a whole separate thing from his other symptoms. This pain appears to be a new development, as he states it's not this when asked if it's something he's been dealing with for quite some time. The specific location, character, and severity of the pain are not detailed in the transcript. Regarding his breathing, Mr. Resendez received a breathing treatment from EMS prior to arrival, which he confirms helped him quite a bit. His breathing appears to have improved since yesterday, as the clinician notes he sounds way less crackly compared to the previous day. The patient underwent dialysis yesterday, with 3 liters of fluid removed. Despite this, he continues to have significant edema, particularly in his groin area. The scrotum is described as still pretty bad, and there's concern about possible cellulitis developing due to increased redness compared to yesterday. The penis is noted to be way less swollen than it was yesterday. Mr. Resendez uses oxygen at home, typically at a dose of 4 liters. In the ED, he is on 3.5 liters of oxygen. He mentions being tired of being a pain, suggesting ongoing discomfort and possibly frustration with his medical situation. The patient reports being out of pain medication that was previously prescribed by Palliative Care during a hospital stay. He has an upcoming appointment with Palliative Care next month but is not currently their patient. Related Data Home Medications ?Medication ?Instructions ?Recorded ?Confirmed ferric citrate 210 mg iron tablet See Rx Instructions .Route .COMPLEX 11/03/21 09/16/24 (Auryxia) aspirin 81 mg tablet,delayed 81 mg PO QAM 02/21/22 09/16/24 release vit B,C-folic ac 800 mcg-zinc 12.5 1 tab PO QAM 10/01/22 09/16/24 mg-selen-D3 2,000 unit-vit E tablet (RenaPlex-D) atorvastatin 40 mg tablet 40 mg PO BEDTIME 01/09/23 09/16/24 carvedilol 25 mg tablet 37.5 mg PO Q12H 01/09/23 09/16/24 hydralazine 100 mg tablet 100 mg PO Q8H 01/09/23 09/16/24 minoxidil 2.5 mg tablet 10 mg PO TID 05/16/24 09/16/24 sevelamer carbonate 800 mg tablet 1,600 mg PO TID 05/16/24 09/16/24 Allergies Allergy/AdvReac Type Severity Reaction Status Date / Time spironolactone Allergy Intermediate facial Verified 09/16/24 12:16 swelling haloperidol (From Haldol) Allergy ADR-Irritab Verified 09/16/24 12:16 le ketorolac Allergy Unknown Verified 09/16/24 12:16 lisinopril Allergy ADR-Swelling Verified 09/16/24 12:16 of the Eye nifedipine Allergy ALGY-Swell Verified 09/16/24 12:16 Lip/Tongue/Throat Review of Systems General: Reports: 10 or more systems reviewed and unremarkable except in HPI and below PFSH ED PFSH: Medical History Dyslipidemia History of home oxygen therapy COPD (chronic obstructive pulmonary disease) Patient under care of multiple providers Umbilical hernia Atherosclerosis of coronary artery Stent and balloon angioplasty to proximal 1 OM branch Abdominal ascites history of intermittent paracentesis, transudative fluid; prior work up has included negative biopsy, ceruloplasmin level normal, low iron, high ferritin, normal TIBC, negative HIV, hepatitis panel negative, JESÚS/SCL 70/double-stranded DNA antibodies negative, Alpha-fetoprotein level unremarkable, nonalcoholic by history, has hepatomegaly and splenomegaly Congestive heart failure preserved ejection fraction History of cardiovascular stress test 07/[address] [facility] perfusion imaging probably normal, no reversible defects, small fixed defect in apical anterior wall, EF 54%, nonischemic response to stress by EKG criteria Depression Epididymitis 06/2022 Pulmonary hypertension Uses bilevel positive airway pressure (BPAP) ventilation at home History of coronary angiogram 11/2021 - patent stent Inguinal hernia Chronic respiratory failure on home oxygen and bipap Nicotine dependence, cigarettes, with other nicotine-induced disorders Generalized anxiety disorder with panic attacks ESRD on dialysis Chronic abdominal pain COVID 05/25 Hypertensive emergency recurrent episodes Urethral stricture Pulmonary embolism 09/21 CTA inconclusive for very tiny peripheral LEFT lower lobe pulmonary artery sub segmental emboli versus poor opacification. Anemia chronic kidney disease Arteriovenous fistula for hemodialysis in place, secondary Degenerative disc disease, lumbar Hypertension uncontrolled Surgical History History of arteriovenous graft left upper extremity fistula, revision 07/2024 in [place] Stented coronary artery H/O hand surgery Amputation right 2&3 fingers 2017 History of adenoidectomy Family History Other Hypertension Social History Smoking and tobacco/nicotine status: current every day tobacco/nicotine user cigarettes Packs smoked per day: 1.5 Years cigarettes smoked: 21 [ Other cigarette details: started age 20, currently 0.5ppd ] Alcohol intake: never Substance/Drug Use: never Number of children: 3 Current occupational status: disabled Do you think of yourself as: Straight/Heterosexual Physical Exam Const: COMMON NORMALS: no acute distress, patient oriented x3, healthy appearing, alert and well nourished HENMT: COMMON NORMALS: normocephalic HEAD & SCALP: normocephalic Eye: COMMON NORMALS: EOMs intact bilaterally Neck/C-Spine: COMMON NORMALS: full ROM and supple Resp: COMMON NORMALS: normal respiratory effort, No retractions and clear to auscultation bilaterally AUSCULTATION: clear to auscultation bilaterally Cardio: COMMON NORMALS: regular rate, regular rhythm, No gallops present (Cardio) and No murmurs present (Cardio) RATE: regular rate RHYTHM: regular rhythm GI: COMMON NORMALS: Soft to palpation and non-tender PALPATION: Yes Soft to palpation : PENIS: normal penis and circumcised SCROTUM: Yes Scrotal tenderness present, Yes erythematous and Yes scrotal swelling (Significant scrotal swelling) Scrotal swelling laterality: bilateral Extremity: GENERAL: Yes normal exam except as noted Neuro: COMMON NORMALS: patient oriented x3 SENSORIUM/ORIENTATION: Yes alert Skin: COMMON NORMALS: no rashes or lesions noted GENERAL SKIN EXAM: no rashes or lesions noted Course Vital Signs: Vital signs: Vital Signs Temperature 97.9 F 09/18/24 17:56 Pulse Rate 123 H 09/19/24 01:00 Respiratory Rate 23 H 09/19/24 01:00 Blood Pressure 204/174 09/19/24 01:00 Pulse Oximetry 98 09/19/24 01:00 Oxygen Delivery Me thod Nasal Cannula 09/18/24 23:24 Oxygen Flow Rate 4 09/18/24 23:24 MDM - SOB/Dyspnea Medical Decision Making 44-year-old male with end-stage renal disease, CHF, and COPD presents to the emergency department for evaluation of shortness of breath and scrotal pain. These are both chronic problems for him. He was evaluated at [facility] in [place] yesterday and diagnosed with CHF exacerbation and sent for dialysis. Patient went for dialysis yesterday. His initial evaluation demonstrated baseline kidney function, anemia of chronic disease, and a significantly elevated proBNP, though at baseline. On physical exam he is ill-appearing with significant swelling in his upper and lower extremities. Lung exam was normal. He still has scrotal swelling though improved from yesterday's exam. While in the emergency department he started to feel worse and his blood sugar was found to be in the low 40s. He received oral glucose and glucagon. An IV was started and D5NS was ordered. Prior to him getting his fluids the patient's heart rate jumped up and he was in SVT briefly. He then converted to sinus tachycardia. He received metoprolol and his heart rate returned to normal. Because of the delay in getting D5 the patient received an amp of D50 and his blood sugar rebounded. Case was discussed with the hospitalist who agreed to admit the patient. Patient was agreeable to this plan. Lab Data 09/18/24 18:19 09/18/24 18:19 Labs/Radiology: Radiology Impressions Chest X-Ray 09/18/24 18:02 IMPRESSION: Similar mild cardiomegaly. No acute findings. Laboratory Results WBC 5.13 10^3/uL (3.29-11.43) 09/18/24 18: RBC 3.20 10^6/uL (3.85-5.65) L 09/18/24 18: Hgb 8.70 g/dL (11.27-16.99) L 09/18/24 18: Hct 28.6 % (37-53) L 09/18/24 18: MCV 89.4 fl (82-101) 09/18/24 18:19 MCH 27.2 pg (27-33) 09/18/24 18:19 MCHC 30.4 g/dL (30-55) 09/18/24 18:19 RDW 17.6 % (12.1-15.1) H 09/18/24 18:19 Plt Count 215 10^3/cmm (157-399) 09/18/24 18:19 MPV 9.6 fL (7.4-10.4) 09/18/24 18:19 Neut % (Auto) 76.6 % 09/18/24 18:19 Lymph % (Auto) 8.2 % 09/18/24 18:19 [place] % (Auto) 9.7 % 09/18/24 18:19 Eos % (Auto) 3.7 % 09/18/24 18:19 Baso % (Auto) 1.4 % 09/18/24 18:19 Neut # (Auto) 3.93 10^3/uL (1.8-7.7) 09/18/24 18:19 Lymph # (Auto) 0.4 10^3/uL (0.8-4.8) L 09/18/24 18:19 [place] # (Auto) 0.5 10^3/uL (0.2-0.9) 09/18/24 18:19 Eos # (Auto) 0.2 10^3/uL (0.0-0.8) 09/18/24 18:19 Baso # (Auto) 0.1 10^3/uL (0.0-0.1) 09/18/24 18:19 Nucleated RBC % (auto) 0 % 09/18/24 18:19 Nucleated RBCs # 0.0 /100WBC 09/18/24 18:19 Sodium 136 mmol/L (136-145) 09/18/24 18:19 Potassium 5.2 mmol/L (3.5-5.1) H 09/18/24 18:19 Chloride 97 mmol/L (98-107) L 09/18/24 18:19 Carbon Dioxide 23 mmol/L (22-29) 09/18/24 18:19 Anion Gap 21.2 (5-19) H 09/18/24 18:19 BUN 25 mg/dL (6-20) H 09/18/24 18:19 Creatinine 6.1 mg/dL (0.7-1.2) H* 09/18/24 18:19 GFR Calculation 10.2 mL/min (90-130) L 09/18/24 18:19 Glucose 51 mg/dL (65-115) L 09/18/24 18:19 Calculated Osmolality 284 mOsm/kg (285-295) L 09/18/24 18:19 Calcium 9.7 mg/dL (8.5-10.5) 09/18/24 18:19 Total Bilirubin 0.4 mg/dL (0.15-1.2) 09/18/24 18:19 AST 15 U/L (0-40) 09/18/24 18:19 ALT < 5 U/L (0-41) 09/18/24 18:19 Alkaline Phosphatase 138 U/L (40-130) H 09/18/24 18:19 NT-Pro-B Natriuret Pep > 36021 pg/mL (0-125) H 09/18/24 18:19 Total Protein 6.7 g/dL (6.6-8.7) 09/18/24 18:19 Albumin 2.7 g/dL (3.5-5.2) L 09/18/24 18:19 Globulin 4.0 g/dL (1.3-4.6) 09/18/24 18:19 All radiology interpretation(s) finalized by discharge EKG Data EKG 1: Interpretation: Sinus rhythm with a second-degree AV block with a rate of 80, QRS duration 122, QTc of 462, no ST segment elevation or depression. EKG 2: Interpretation: Supraventricular tachycardia with a rate of 128, QRS duration of 112, QTc of 357 EKG 3: Interpretation: Sinus tachycardia with a rate of 127, TN 193, QRS 139, QTc 374, ST segment depression in V5 and V6 without reciprocal changes EKG 4: Interpretation: Normal sinus rhythm with a rate of 93, QRS 128, QTc of 408, no ST segment elevation or depression. Discharge Plan Discharge Patient Disposition: Admitted As Inpatient Clinical Impression: SVT (supraventricular tachycardia), Hypoglycemia Congestive heart failure Qualifiers: Heart failure type: unspecified Heart failure chronicity: unspecified Qualified Code(s): I50.9 - Heart failure, unspecified Condition: Stable Coding Level of Care Code ED Perfume Maker for Cristi Diane
--- NOTE | 2024-09-18 18:18 | ECG_ITS ---
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 Measurements Intervals [place] Rate: 80 P: 0 PA: 0 QRS: 73 QRSD: 122 T: 78 QT: 427 QTc: 493 Interpretive Statements SINUS RHYTHM WITH 2ND DEGREE AV BLOCK, 2:1 OR MOBITZ TYPE II ANTEROSEPTAL MYOCARDIAL INFARCTION , OF INDETERMINATE AGE [40+ ms Q WAVE IN V1-V4] Compared to ECG 08/22/2024 03:15:21 No significant changes Electronically Signed On 09-18-2024 19:52:04 CDT by Mitesh Woodall M.D. [id number]
[2024-09-18 18:25] LABS: Basophils # 0.1 10^3/uL (0.0-0.1); Basophils % 1.4 %; Eosinophils # 0.2 10^3/uL (0.0-0.8); Eosinophils % 3.7 %; Hematocrit 28.6 % (37-53); Lymphocytes # 0.4 10^3/uL (0.8-4.8); Lymphocytes % 8.2 %; Mean Corpuscular HGB Conc 30.4 g/dL (30-55); Mean Corpuscular Hemoglobin 27.2 pg (27-33); Mean Corpuscular Volume 89.4 fl (82-101); Mean Platelet Volume 9.6 fL (7.4-10.4); Monocytes # 0.5 10^3/uL (0.2-0.9); Monocytes % 9.7 %; Neutrophils # 3.93 10^3/uL (1.8-7.7); Neutrophils % 76.6 %; Nucleated Red Blood Cells % 0 %; Platelet Count 215 10^3/cmm (157-399); Red Cell Distribution Width 17.6 % (12.1-15.1); White Blood Count 5.13 10^3/uL (3.29-11.43)
[2024-09-18 18:54] LABS: Alanine Aminotransferase < 5 U/L (0-41); Albumin Level 2.7 g/dL (3.5-5.2); Alkaline Phosphatase 138 U/L (40-130); Anion Gap 21.2 (5-19); Aspartate Amino Transferase 15 U/L (0-40); Blood Urea Nitrogen 25 mg/dL (6-20); Calcium 9.7 mg/dL (8.5-10.5); Carbon Dioxide 23 mmol/L (22-29); Chloride 97 mmol/L (98-107); Creatinine Clr Calc Pharmacy 17.9842; Glomerular Filtration Rate 10.2 mL/min (90-130); Glucose 51 mg/dL (65-115); Osmolality Calculated 284 mOsm/kg (285-295); Potassium 5.2 mmol/L (3.5-5.1); Sodium 136 mmol/L (136-145); Total Bilirubin 0.4 mg/dL (0.15-1.2); Total Protein 6.7 g/dL (6.6-8.7)
[2024-09-18 19:22] LABS: NT Pro B Type Natriuretic Pept > 70000 pg/mL (0-125)
[2024-09-18] MEDS: ipratropium-albuterol 3 mL Neb INHALATION ×2 (20:26→23:20)
[2024-09-18] MEDS: glucagon 1 mg/mL KIT 1 mL IM (23:07)
[2024-09-18] MEDS: glucose 40% Gel 15 gm UDC PO (23:10)
--- NOTE | 2024-09-18 23:45 | ECG_ITS ---
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 Measurements Intervals [place] Rate: 128 P: 0 NV: 0 QRS: 99 QRSD: 112 T: 92 QT: 281 QTc: 411 Interpretive Statements atrial fibrillation with rapid ventricular rate BORDERLINE RIGHT AXIS DEVIATION [QRS AXIS > 90] LOW QRS VOLTAGE IN EXTREMITY LEADS [QRS DEFLECTION < 0.5 mV IN LIMB LEADS] POSSIBLE ANTERIOR MYOCARDIAL INFARCTION , OF INDETERMINATE AGE [30 ms Q WAVE IN V3/V4, OR R < 0.2 mV IN V4] Compared to ECG 09/18/2024 18:18:53 Low QRS voltage now present Sinus rhythm no longer present Myocardial infarct finding still present Electronically Signed On 09-20-2024 17:55:13 CDT by Ruba Hussein M.D. [id number]
[2024-09-19] VITALS (60 sets, daily range): BP systolic 118–204; BP diastolic 54–174; PULSE 57–138; RESP 15–31; TEMP 37.5–38.7; O2SAT 87–100; BMI 26.4
[2024-09-19] MEDS: dextrose 10% 250 ML 1000 ML IV ×2 (00:05→03:00)
--- NOTE | 2024-09-19 00:36 | ECG_ITS ---
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 Measurements Intervals [place] Rate: 93 P: 0 ME: 0 QRS: 97 QRSD: 128 T: 83 QT: 357 QTc: 445 Interpretive Statements possible atrial fibrillation with a controlled ventricular response rate nonspecific IVCD BORDERLINE RIGHT AXIS DEVIATION [QRS AXIS > 90] SEPTAL MYOCARDIAL INFARCTION , OF INDETERMINATE AGE [40+ ms Q WAVE IN V1/V2] Compared to ECG 09/18/2024 18:18:53 Sinus rhythm no longer present Myocardial infarct finding still present Baseline artifacts, need to repeat Electronically Signed On 09-20-2024 06:33:42 CDT by Ruba Hussein M.D. [email or web address]
[2024-09-19] MEDS: metoprolol tartrate 1 mg/1 mL SDV 5 mL 5 MG IVP (00:41)
[2024-09-19] MEDS: dextrose 50% syringe 50 mL (00:42)
--- NOTE | 2024-09-19 01:07 | PC.NURSE ---
nurse at bedside at 23:00. Patient stated he felt like he was going to pass out. Nurse got the glucometer and ekg and returned. POC came back at 45. Patient was diaphoretic. Nurse notified Dr Ward. Orders were given got glucagon im and dextrose gel. Glucose was given first im in left deltoid. Charge nurse went to OB to optain glucose gel. Nurse gave 2 sugar packets to patient at 23:10. rechecked sugar 10 min later. poc was 47. Patient recieved gel at 23:20. poc 49. Dextrose 10 250 ml was given at 00:05. nurse did a repeat ekg and gave it to provider. Rechecked sugar at 00:30 and it dropped to 37. Provider ordered d-50. rechecked at 01:00 poc was 132. Patient was alert and oriented x 4 at this time.
--- NOTE | 2024-09-19 01:18 | PM.HP ---
Providers/Chief Complaint Admitting Physician: Thi Nuno MD Primary Care Provider: Delio Salazar MD Chief Complaint: sob History of Present Illness History was obtained primarily from the ED physician signout. Mal Gibbs is a 44 yo man w/ anuric ESRD on TTS HD via a L. AVF, hx of non-compliance, pulmonary hypertension, HTN, HLD, COPD, chronic hypoxic respiratory failure on 4L NC, who presented to the ED on 09/18/2024 with complaints of dyspnea and scrotal pain. Per ED physician, the patient had gone to dialysis on Thursday, and 3L had been removed, but the patient had a history of noncompliance, so it was unclear whether he went to dialysis earlier in the week. According to the ED physician, patient had been evaluated, and his volume overload appeared less than it was in the past. The ED physician was set to discharge the patient from the ED, when the patient became hypoglycemic, and was administered glucagon, and oral glucose. According to the nurse, the patient declined food. The patient subsequently went into SVT and self converted before adenosine could be administered. He also was hypertensive and became extremely tachypneic, so he was admitted for CHF exacerbation, SVT and hypoglycemia. On admission to the ICU, he was administered 250 cc bolus of D10 forBG of 75. His tachypnea worsened with respirations in the 30s bpm. An ABG was done while he was on oxymask was 7.25/50/2. He developed respiratory distress and was placed on BiPAP and although the O2 saturations on the monitor showed that he was in the 80s, it was clearly not accurate, because on oxy mask his PaO2 was more than appropriate. He was also given DuoNebs x 1. He remained hypertensive and tachycardic on admission, and was initially given 10 mg of Labetalol IVP x 1, which improved his heart rate, but he remained hypertensive. He was administered hydralazine 10 mg IVP x 1 and started on q4h prn hydralazine that was ordered with parameters. Nephrology was emergently consulted, who immediately initiated dialysis on the patient. Given his elevated blood pressures, that remained unresponsive to as needed hydralazine, he was started on a nicardipine drip. Furthermore, he also became febrile to Tmax of 101.7F. Given concern for sepsis of unclear source, blood cultures were ordered and a lactic acid was ordered. Review of the patient's micro studies suggested that he has had a history of K. pneumoniae SBP, and bedside abdominal ultrasound evaluation showed that the o Ceftriaxone 2g IVP q24h was ordered. Per later discussion with the engineering faculty member, there is a concern for history of epididymitis. Review of the patient's imaging showed that he just had a scrotal ultrasound on 08/22/2024, which not only showed an absent left testicle, but also showed findings concerning for epididymitis. A scrotal ultrasound was ordered and vancomycin was ordered for broader coverage. Review of Systems General: Reports: ROS unobtainable due to medical condition Medications/Allergies Home Medications ?Medication ?Instructions ?Recorded ?Confirmed ?Last Taken ?Type ferric citrate 210 mg iron tablet See Rx Instructions .Route .COMPLEX 11/03/21 09/16/24 08/13/24 History (Auryxia) aspirin 81 mg tablet,delayed 81 mg PO QAM 02/21/22 09/16/24 08/13/24 History release vit B,C-folic ac 800 mcg-zinc 12.5 1 tab PO QAM 10/01/22 09/16/24 08/13/24 History mg-selen-D3 2,000 unit-vit E tablet (RenaPlex-D) atorvastatin 40 mg tablet 40 mg PO BEDTIME 01/09/23 09/16/24 08/13/24 History carvedilol 25 mg tablet 37.5 mg PO Q12H 01/09/23 09/16/24 08/13/24 History hydralazine 100 mg tablet 100 mg PO Q8H 01/09/23 09/16/24 08/13/24 History minoxidil 2.5 mg tablet 10 mg PO TID 05/16/24 09/16/24 08/13/24 History sevelamer carbonate 800 mg tablet 1,600 mg PO TID 05/16/24 09/16/24 08/13/24 History Allergies Allergy/AdvReac Type Severity Reaction Status Date / Time spironolactone Allergy Intermediate facial Verified 09/16/24 12:16 swelling nifedipine Allergy Unknown ALGY-Swell Verified 09/19/24 08:36 Lip/Tongue/Throat haloperidol (From Haldol) Allergy ADR-Irritab Verified 09/16/24 12:16 le ketorolac Allergy Unknown Verified 09/16/24 12:16 lisinopril Allergy ADR-Swelling Verified 09/16/24 12:16 of the Eye PFSH Acute PFSH: Medical History (Updated 09/19/24 @ 08:19 by Thi Nuno MD) Abdominal ascites history of intermittent paracentesis, transudative fluid; prior work up has included negative biopsy, ceruloplasmin level normal, low iron, high ferritin, normal TIBC, negative HIV, hepatitis panel negative, JESÚS/SCL 70/double-stranded DNA antibodies negative, Alpha-fetoprotein level unremarkable, nonalcoholic by history, has hepatomegaly and splenomegaly Epididymitis 06/2022 Dyslipidemia History of home oxygen therapy COPD (chronic obstructive pulmonary disease) Patient under care of multiple providers Umbilical hernia Atherosclerosis of coronary artery Stent and balloon angioplasty to proximal 1 OM branch Congestive heart failure preserved ejection fraction History of cardiovascular stress test 07/2022 at [facility] perfusion imaging probably normal, no reversible defects, small fixed defect in apical anterior wall, EF 54%, nonischemic response to stress by EKG criteria Depression Pulmonary hypertension Uses bilevel positive airway pressure (BPAP) ventilation at home History of coronary angiogram 11/2021 - patent stent Inguinal hernia Chronic respiratory failure on home oxygen and bipap Nicotine dependence, cigarettes, with other nicotine-induced disorders Generalized anxiety disorder with panic attacks ESRD on dialysis Chronic abdominal pain COVID 05/25 Hypertensive emergency recurrent episodes Urethral stricture Pulmonary embolism 09/21 CTA inconclusive for very tiny peripheral LEFT lower lobe pulmonary artery sub segmental emboli versus poor opacification. Anemia chronic kidney disease Arteriovenous fistula for hemodialysis in place, secondary Degenerative disc disease, lumbar Hypertension uncontrolled Surgical History (Updated 08/26/24 @ 00:00 by HALEIGH Chan) History of arteriovenous graft left upper extremity fistula, revision 07/2024 in [place] Stented coronary artery H/O hand surgery Amputation right 2&3 fingers 2017 History of adenoidectomy Family History Other Hypertension Social History Smoking and tobacco/nicotine status: current every day tobacco/nicotine user cigarettes Packs smoked per day: 1.5 Years cigarettes smoked: 21 [ Other cigarette details: started age 20, currently 0.5ppd ] Alcohol intake: never Substance/Drug Use: never Number of children: 3 Current occupational status: disabled Do you think of yourself as: Straight/Heterosexual Vitals/I&O/Wt Last Vital Signs Temp 97.9 F 09/18/24 17:56 Pulse 123 H 09/19/24 01:00 Resp 23 H 09/19/24 01:00 BP 204/174 09/19/24 01:00 Pulse Ox 98 09/19/24 01:00 O2 Del Method Nasal Cannula 09/18/24 23:24 O2 Flow Rate 4 09/18/24 23:24 Weight last 48 hrs Weight 81.647 kg Physical Exam Narrative: Patient's exam was limited by his dyspnea and tachypnea Const: GENERAL APPEARANCE: in distress and ill appearing (He looks silva, ashen.); not comfortable ORIENTATION/CONSCIOUSNESS: Yes awake, Yes oriented to person, Yes oriented to place and Yes oriented to time HENMT: HEAD & SCALP: normocephalic and atraumatic NOSE: Normal external nose present EXTERNAL EAR: Yes external ears normal OTHER: Unable to assess oropharynx given BiPAP. Neck/C-Spine: CERVICAL SPINE: Yes cervical ROM normal OTHER: Distended neck veins. Unable to appreciate carotid bruit due to the BiPAP. Also unable to appreciate thyroid due to BiPAP. Lymph: OTHER: No cervical or supraclavicular LAD Resp: OTHER: Bilateral lower lung lobe crackles. Cardio: OTHER: RRR, no m/r/g or clicks. No GI: OTHER: BS positive, distended, nontender, no guarding, no rebound tenderness, no hepatosplenomegaly. : OTHER: Enlarged swollen scrotum bilaterally Extremity: NARRATIVE EXTREMITY EXAM: 3+ pitting edema to the b/l thighs. pitting edema. Neuro: BUCK COMA SCALE: document GCS findings [place] coma scale eye opening: Spontaneous [place] coma scale verbal response: Orientated [place] coma scale motor response: Obey commands Buck coma scale total score: 15 Psych: OTHER: Unable to assess given medical condition -respiratory distress Skin: GENERAL SKIN EXAM: no rashes or lesions noted Data 09/19/24 06:44 09/19/24 06:44 A&P Assessment and plan (1) Severe sepsis: (2) Epididymitis: (3) Acute on chronic heart failure with preserved ejection fraction (HFpEF): (4) Acute and chronic respiratory failure, unspecified whether with hypoxia or hypercapnia: (5) High anion gap metabolic acidosis: Plan Mal Gibbs is a 44 yo man w/ anuric ESRD on TTS HD via a L. AVF, hx of non-compliance, pulmonary hypertension, HTN, HLD, COPD, chronic hypoxic respiratory failure on 4L NC, who presented to the ED on 09/18/2024 with complaints of dyspnea and scrotal pain. He was admitted for CHF exacerbation, SVT and hypoglycemia. #Severe Sepsis - Possibly due to SBP, Epididymitis - F/u BCx. Paracentesis ordered. Scrotal US ordered - On Vanc, Ceftriaxone #Abdominal distention - Concern for Spontaneous bacterial peritonitis - Paracentesis ordered. #Epididymitis Scrotal US ordered #Acute on chronic HFpEF w/ mild mitral regurgitation #Vol overload #ESRD on HD - Nephrology consulted for HD #Hyperkalemia -Nephrology consulted for HD #High AGAP Metabolic acidosis - Multifactorial including ESRD and lactate. Monitor #HTN urgency - On Nicardipine drip and hydralazine prn. #Acute on chronic hypoxic hypercapneic respiratory failure - On BiPAP. repeat ABG ordered for noon. #COPD - unclear that he is in exacerbation. #DM2. - Monitor BG #Hypoglycemia - Hypoglycemia protocol ordered. q1h bg checks. #SVT: no acute issues. He self converted almost immediately. DVT ppx: subq heparin PPI: Pantoprazole. PDMP PDMP Reviewed: Not Reviewed Attestations Medical Necessity Statement*: The patient needs to be hospitalized for severe sepsis due to SBP and possible epididymitis, acute on chronic HFpEF, hyperkalemia, hypoglycemia, and acute on chronic HFpEF with mild mitral regurgitation. Critical Care Time: The high probability of a clinically significant, sudden or life threatening deterioration of the patient's [] system(s) required my full and direct attention, intervention and personal management. The critical care time is as shown. This time is in addition to time spent performing any reported procedures but includes the following: [x] Data and vital sign review and interpretation [x] Patient assessment, examination and intervention [x] Documentation [x] Medication orders and management Critical Care Time (min): 90 Coding Level of Care Code Critical Care >/= 30 minutes Critical care time (in minutes): 90 The high probability of a clinically significant, sudden or life threatening deterioration, as referenced in this documentation, required my full and direct attention, intervention and personal management. The critical care time shown is in addition to time spent performing any reported separately billable procedures and includes the following: [x] Data and vital sign review and interpretation [x] Patient assessment, examination and intervention [x] Medication orders and management [x] Patient/Family updates as able [x] Care Coordination and Documentation. Other Coding Information Focused coding review requested Diagnoses Severe sepsis A41.9; R65.20 Epididymitis N45.1 Acute on chronic heart failure with preserved ejection fraction (HFpEF) I50.33 Acute and chronic respiratory failure, unspecified whether with hypoxia or hypercapnia J96.20 High anion gap metabolic acidosis E87.29
[2024-09-19 01:41] LABS: Troponin(5th) Baseline 178 ng/L (0-15)
[2024-09-19 02:57] LABS: Glucose Point of Care 66 mg/dL (70-110)
[2024-09-19 03:04] LABS: Troponin 5 2HR 200.2 ng/L (0-15); Troponin 5 2HR Delta 22.2 ABS# (0-10)
[2024-09-19 03:31] LABS: Glucose Point of Care 127 mg/dL (70-110)
[2024-09-19] MEDS: labetalol 5 mg/mL SDV 20mL 10 MG IVP (03:36)
[2024-09-19 04:08] LABS: ABG PCO2 50.1 mmHg (35-45); ABG PH Result 7.25 (7.35-7.45); Base Excess ABG -5.3 mmol/L (-2.0-2.0); Blood Gas Allen Test Pos; Blood Gas Operator Identificat SAM; Blood Gas Sample Site Radial, right; Blood Gas Sample Type Arterial; Oxygen Device OXY MASK
[2024-09-19 04:24] LABS: Glucose Point of Care 79 mg/dL (70-110)
[2024-09-19] MEDS: hyDRALAzine 20 mg/mL INJ 1 mL 10 MG IVP (04:35)
--- NOTE | 2024-09-19 05:47 | PM.CONSULT ---
Providers/Reason For Consult Consulting Physician/Specialty*: tona rosario md/ telenephrology Reason for Consult*: esrd care, volume overloaded Requesting Physician: Dr Belen Nuno Attending Physician: Thi Nuno MD Primary Care Provider: Delio Salazar MD History of Present Illness History of Present Illness Mal Gibbs is a 44 year old male with a past medical history of end-stage renal disease on dialysis, COPD, diastolic CHF, pulm hypertension, hypertension, history of smoking, anemia, and severe edema/ ascites/ anasarca. Recent admission w/ epididymitis The Patient presented to [facility] for edema, sob, scrotal pain. While in the emergency department he started to feel worse and his blood sugar was found to be in the low 40s. He received oral glucose and glucagon. An IV was started and D5NS was ordered. Prior to him getting his fluids the patient's heart rate jumped up and he was in SVT briefly. He then converted to sinus tachycardia. He received metoprolol and his heart rate returned to normal. Because of the delay in getting D5 the patient received an amp of D50 and his blood sugar rebounded. renal called for ESRD care Review of Systems Narrative: weak, swollen, nausea, SOB, headaches, poor vision, cp, nausea, abd pain, scrotal pain, edema. Medications/Allergies Home Medications ?Medication ?Instructions ?Recorded ?Confirmed ?Last Taken ?Type ferric citrate 210 mg iron tablet See Rx Instructions .Route .COMPLEX 11/03/21 09/16/24 08/13/24 History (Auryxia) aspirin 81 mg tablet,delayed 81 mg PO QAM 02/21/22 09/16/24 08/13/24 History release vit B,C-folic ac 800 mcg-zinc 12.5 1 tab PO QAM 10/01/22 09/16/24 08/13/24 History mg-selen-D3 2,000 unit-vit E tablet (RenaPlex-D) atorvastatin 40 mg tablet 40 mg PO BEDTIME 01/09/23 09/16/24 08/13/24 History carvedilol 25 mg tablet 37.5 mg PO Q12H 01/09/23 09/16/24 08/13/24 History hydralazine 100 mg tablet 100 mg PO Q8H 09/12/2409/16/24 08/13/24 History minoxidil 2.5 mg tablet 10 mg PO TID 05/16/24 09/16/24 08/13/24 History sevelamer carbonate 800 mg tablet 1,600 mg PO TID 05/16/24 09/16/24 08/13/24 History Allergies Allergy/AdvReac Type Severity Reaction Status Date / Time spironolactone Allergy Intermediate facial Verified 09/16/24 12:16 swelling haloperidol (From Haldol) Allergy ADR-Irritab Verified 09/16/24 12:16 le ketorolac Allergy Unknown Verified 09/16/24 12:16 lisinopril Allergy ADR-Swelling Verified 09/16/24 12:16 of the Eye nifedipine Allergy ALGY-Swell Verified 09/16/24 12:16 Lip/Tongue/Throat PFSH Acute PFSH: Medical History Dyslipidemia History of home oxygen therapy COPD (chronic obstructive pulmonary disease) Patient under care of multiple providers Umbilical hernia Atherosclerosis of coronary artery Stent and balloon angioplasty to proximal 1 OM branch Abdominal ascites history of intermittent paracentesis, transudative fluid; prior work up has included negative biopsy, ceruloplasmin level normal, low iron, high ferritin, normal TIBC, negative HIV, hepatitis panel negative, JESÚS/SCL 70/double-stranded DNA antibodies negative, Alpha-fetoprotein level unremarkable, nonalcoholic by history, has hepatomegaly and splenomegaly Congestive heart failure preserved ejection fraction History of cardiovascular stress test 07/2022 at [facility] perfusion imaging probably normal, no reversible defects, small fixed defect in apical anterior wall, EF 54%, nonischemic response to stress by EKG criteria Depression Epididymitis 06/2022 Pulmonary hypertension Uses bilevel positive airway pressure (BPAP) ventilation at home History of coronary angiogram 11/2021 - patent stent Inguinal hernia Chronic respiratory failure on home oxygen and bipap Nicotine dependence, cigarettes, with other nicotine-induced disorders Generalized anxiety disorder with panic attacks ESRD on dialysis Chronic abdominal pain COVID 05/25 Hypertensive emergency recurrent episodes Urethral stricture Pulmonary embolism 09/21 CTA inconclusive for very tiny peripheral LEFT lower lobe pulmonary artery sub segmental emboli versus poor opacification. Anemia chronic kidney disease Arteriovenous fistula for hemodialysis in place, secondary Degenerative disc disease, lumbar Hypertension uncontrolled Surgical History History of arteriovenous graft left upper extremity fistula, revision 07/2024 in [place] Stented coronary artery H/O hand surgery Amputation right 2&3 fingers 2017 History of adenoidectomy Family History Other Hypertension Social History Smoking and tobacco/nicotine status: current every day tobacco/nicotine user cigarettes Packs smoked per day: 1.5 Years cigarettes smoked: 21 [ Other cigarette details: started age 20, currently 0.5ppd ] Alcohol intake: never Substance/Drug Use: never Number of children: 3 Current occupational status: disabled Do you think of yourself as: Straight/Heterosexual Vitals/I&O/Wt Last Vital Signs Temp 101.7 F H 09/19/24 05:00 Pulse 85 09/19/24 05:00 Resp 29 H 09/19/24 05:00 BP 139/119 09/19/24 04:30 Pulse Ox 87 L 09/19/24 05:00 O2 Del Method BiPAP 09/19/24 05:00 O2 Flow Rate 6 09/19/24 03:30 FiO2 60 09/19/24 05:00 09/18/24 09/18/24 09/19/24 14:59 22:59 06:59 Intake Total 500 / 500 Output Total 0 / 0 Balance 500 / 500 Weight last 48 hrs Weight 90.718 kg Weight 81.647 kg Physical Exam Narrative: febrile, hypertensive, tachypneic on bipap, uncomfortable heent- nc/at, eomi neck supple, +JVP lungs dull bases and crackles heart regular abdomen ++ ascites, + umbilical hernia, distended, +BS significant scrotal edema and tenderness extremities 2+ edema + left Arm AVG neuro- lethargic, moves, responsive seen and examine dw/ aide of a nurse using A/V equipmeny Data 09/18/24 18:19 09/18/24 18:19 Micro: Microbiology 09/19/24 00:38 Blood Culture - Preliminary Blood SPECIMEN COLLECTED 09/19/24 00:40 Blood Culture - Preliminary Blood SPECIMEN COLLECTED A&P Assessment and plan (1) End stage renal disease on dialysis: 44 year old man 1. ESRD- volume overloaded and gtn- HD today, and assess for extra dialysis daily 2. fevers and recent paracentesis w/ klebsiella- please send blood cx, u/a and cx. repeat paracentesis and send cx. then please start abx 3. dm- monitor glucose 4. anemia- has h/o high ferritin. check iron studies. will not give iv iron if bacteremia. no epogen till bP improves 5.resp distress- HD today 6. please consider large volume paracentesis recent echo last month EF 65%, no severe valvular disease seen and examined w/ RN using A/ V equipment. pt consents o HD and telehealth visits Plan see above PDMP PDMP Reviewed: Not Reviewed Consult Attestations Medical Necessity Statement: esrd, volume overload, severe respiratory distress Time Spent in Patient Care: Greater than 35 minutes (>than 50% of time spent in counselling and/or direct pt care on unit). Coding Level of Care Code Acute Code for g Fwd Diagnoses End stage renal disease on dialysis N18.6; Z99.2
[2024-09-19] MEDS: pantoprazole 40 mg SDV IVP (05:49)
[2024-09-19] MEDS: cefTRIAXone 2,000 mg SDV 2000 MG IVP (05:49)
[2024-09-19] MEDS: nicardipine 20 MG/200 ML PREMIX 50 MG IV (06:17)
--- NOTE | 2024-09-19 06:39 | US_ITS ---
WS: [id number] ULTRASOUND-GUIDED THERAPEUTIC AND DIAGNOSTIC PARACENTESIS Procedure, risks, and complications have been explained to the patient. Consent is obtained. Utilizing aseptic technique and 1% buffered lidocaine, a small dermatome was made through which a 5 [place] Yueh catheter was inserted. Approximately 4000 ml of clear peritoneal fluid was obtained without difficulty. No complications encountered. US/US paracentesis abd w [id number] IMPRESSION: Uncomplicated paracentesis yielding 4000 ml of peritoneal fluid.
[2024-09-19 06:41] LABS: Glucose Point of Care 55 mg/dL (70-110)
[2024-09-19] MEDS: glucagon 1 mg/mL KIT 1 mL IM (06:47)
[2024-09-19 07:08] LABS: Basophils % 0.4 %; Eosinophils % 0.4 %; Hematocrit 32.7 % (37-53); Lymphocytes # 0.6 10^3/uL (0.8-4.8); Lymphocytes % 11.4 %; Mean Corpuscular Hemoglobin 27.5 pg (27-33); Mean Corpuscular Volume 91.9 fl (82-101); Mean Platelet Volume 9.7 fL (7.4-10.4); Monocytes # 0.4 10^3/uL (0.2-0.9); Neutrophils # 4.05 10^3/uL (1.8-7.7); Neutrophils % 79.4 %; Nucleated Red Blood Cells # 0.1 /100WBC; Nucleated Red Blood Cells % 1.4 %; Platelet Count 114 10^3/cmm (157-399); Red Blood Count 3.56 10^6/uL (3.85-5.65); Red Cell Distribution Width 17.4 % (12.1-15.1)
[2024-09-19 07:18] LABS: INR 2.12 (0.8-1.2)
[2024-09-19 07:19] LABS: Partial Thromboplastin Time 49.9 SECONDS (23.9-36.7)
[2024-09-19 07:24] LABS: Adenovirus Not Detected (NOT DETECT); Chlamydia Pneumoniae Not Detected (NOT DETECT); Coronavirus 229E,HKU1,NL63,OC4 Not Detected (NOT DETECT); Human Metapneumovirus Not Detected (NOT DETECT); Human Rhinovirus/Enterovirus Detected (NOT DETECT); Influenza A Not Detected (NOT DETECT); Influenza A H1 Not Detected (NOT DETECT); Influenza A H1-2009 Not Detected (NOT DETECT); Influenza A H3 Not Detected (NOT DETECT); Influenza B Not Detected (NOT DETECT); Mycoplasma Pneumoniae Not Detected (NOT DETECT); Parainfluenza Virus Type 1 Not Detected (NOT DETECT); Parainfluenza Virus Type 2 Not Detected (NOT DETECT); Parainfluenza Virus Type 3 Not Detected (NOT DETECT); Parainfluenza Virus Type 4 Not Detected (NOT DETECT); Respiratory Syncytial Virus A Not Detected (NOT DETECT); Respiratory Syncytial Virus B Not Detected (NOT DETECT); SARS-COV-2 Not Detected (NOT DETECT)
[2024-09-19 07:29] LABS: Alanine Aminotransferase 187 U/L (0-41); Albumin Level 2.7 g/dL (3.5-5.2); Alkaline Phosphatase 151 U/L (40-130); Blood Urea Nitrogen 31 mg/dL (6-20); Calcium 9.3 mg/dL (8.5-10.5); Carbon Dioxide 22 mmol/L (22-29); Chloride 96 mmol/L (98-107); Creatinine Clr Calc Pharmacy 16.3775; Globulin 3.9 g/dL (1.3-4.6); Glomerular Filtration Rate 8.7 mL/min (90-130); Glucose 59 mg/dL (65-115); Magnesium 2.2 mg/dL (1.7-2.3); Osmolality Calculated 284 mOsm/kg (285-295); Sodium 135 mmol/L (136-145); Total Bilirubin 0.9 mg/dL (0.15-1.2); Total Protein 6.6 g/dL (6.6-8.7)
[2024-09-19 07:30] LABS: Lactate (Lactic Acid level) 3.2 mmol/L (0.5-2.2)
[2024-09-19 07:33] LABS: Procalcitonin 24.29 ng/mL (0-0.5); Troponin 5 6HR 268.2 ng/L (0-15); Troponin 5 6HR Delta 90.2 ng/L (0-12)
[2024-09-19 07:34] LABS: Anion Gap 22.9 (5-19); Potassium 5.9 mmol/L (3.5-5.1)
--- NOTE | 2024-09-19 07:48 | USR_ITS ---
PROCEDURE INFORMATION: Exam: US Scrotum Exam date and time: 09/19/2024 5:42 PM Age: 44 years old Clinical indication: Scrotum pain; Additional info: Concern for epididymitis TECHNIQUE: Imaging protocol: Real-time ultrasound of the scrotum and contents with color Doppler and image documentation. COMPARISON: US scrotum [id number] 09/18/2023 6:08 AM FINDINGS: Right testicle: Not visualized due to extensive scrotal edema Left testicle: Normal. No mass. Normal color Doppler and arterial waveforms. No torsion. Left testicle measures 3.1 x 2.8 x 2.4 cm (10.9 mL) Epididymides: Normal on the left. Right epididymis not visualized. Scrotum/soft tissues: Extensive scrotal edema throughout. US/US scrotum [id number] IMPRESSION: 1. Extensive scrotal edema could be due to cellulitis or acute idiopathic scrotal edema. Right epididymitis not excluded which can also be a cause of an acute scrotum. 2. Right testicle and epididymis not visualized due to extensive scrotal edema.
[2024-09-19 08:00] LABS: Aspartate Amino Transferase 1302 U/L (0-40)
[2024-09-19] MEDS: ipratropium-albuterol 3 mL Neb INHALATION ×3 (08:05→20:04)
[2024-09-19] MEDS: heparin, porcine 1,000 unit/mL INJ 10 mL 1000 UNIT IV (08:19)
[2024-09-19 08:21] LABS: Hepatitis B Surface AB 92.7 (11.5-1000); Hepatitis B Surface Antigen Non-Reactive (Nonreactive)
[2024-09-19] MEDS: heparin 5,000 unit/mL INJ 1 mL 5000 UNIT SUBCUT (08:34)
[2024-09-19 08:56] LABS: Hepatitis C Virus Antibody Non-Reactive (Nonreactive)
--- NOTE | 2024-09-19 09:19 | PC.PHAR ---
Pharmacy is faxing current med list 5 9:19am
[2024-09-19] MEDS: nicardipine 20 MG/200 ML PREMIX 75 MG IV (11:07)
[2024-09-19 12:17] LABS: Blood Gas Allen Test Pos; Blood Gas Operator Identificat GD; Blood Gas Sample Site Radial, right; Blood Gas Sample Type Arterial; Carboxyhemoglobin 0.8 %THgb (0.4-20.1); Ionized Calcium Level - ABG 1.2 mmol/L (1.1-1.4); Oxygen Device BIPAP
[2024-09-19 12:19] LABS: ABG PCO2 41.9 mmHg (35-45); ABG PH Result 7.46 (7.35-7.45); Alveolar-Arterial Oxygen Gradi 22.3 mmHg (5-10); Arterial Blood Gas Hematocrit 30.9 % (42-52); HCO3 ABG 29.4 mmol/L (22-26); HGB O2 Sat 97.9 % (95-100); Methemoglobin 0.6 % (0.4-1.5); Oxygen Saturation ABG > 99.1; PO2 FiO2 Ratio Arterial Blood 258; Total Hemoglobin 10.1 g/dL (14-18)
[2024-09-19] MEDS: vancomycin 2,000 MG/400 ML PIGGYBACK 200 MG IV (12:21)
[2024-09-19 12:27] LABS: Glucose Point of Care 57 mg/dL (70-110)
--- NOTE | 2024-09-19 13:28 | PC.NURSE ---
Dr. Bailey inserted paracentesis line and advised this nurse to not pull more than 8000 ml but expects around 4 to 5000 to be what comes out, this nurse notifed dr bailey that patient had 3,000 ml taken off with dialysis
--- NOTE | 2024-09-19 13:32 | PC.NURSE ---
blood sugar 57 patient AO and follows commands, given to juices to drink patient refused to eat lunch
--- NOTE | 2024-09-19 13:45 | PHA.VACGOAL ---
Vancomycin Goal - Goal Vancomycin Goal:: 15-20 mg/L Vancomycin Indication:: Pneumonia - Therapy Day of therpy:: Day []of [] . Actual body weight (kg): 200 lb - Data Labs: WBC 5.10 10^3/uL (3.29-11.43) 09/19/24 06:44 RBC 3.56 10^6/uL (3.85-5.65) L 09/19/24 06:44 Hgb 9.80 g/dL (11.27-16.99) L 09/19/24 06:44 Hct 32.7 % (37-53) L 09/19/24 06:44 MCV 91.9 fl (82-101) 09/19/24 06:44 MCH 27.5 pg (27-33) 09/19/24 06:44 MCHC 30.0 g/dL (30-55) 09/19/24 06:44 RDW 17.4 % (12.1-15.1) H 09/19/24 06:44 Sodium 135 mmol/L (136-145) L 09/19/24 06:44 Potassium 5.9 mmol/L (3.5-5.1) H 09/19/24 06:44 Chloride 96 mmol/L (98-107) L 09/19/24 06:44 Carbon Dioxide 22 mmol/L (22-29) 09/19/24 06:44 Anion Gap 22.9 (5-19) H 09/19/24 06:44 BUN 31 mg/dL (6-20) H 09/19/24 06:44 Creatinine 7.0 mg/dL (0.7-1.2) H* 09/19/24 06:44 GFR Calculation 8.7 mL/min (90-130) L 09/19/24 06:44 Treatment plan:: new consult Regimen:: PT HAS DIALYSIS TODAY, GIVE 2000 MG AFTER DIALYSIS
--- NOTE | 2024-09-19 13:59 | PC.NURSE ---
4L pulled off in paracentesis
[2024-09-19 15:26] LABS: Glucose Point of Care 64 mg/dL (70-110)
--- NOTE | 2024-09-19 16:18 | P.PN_ITS ---
Subjective 2 Subjective: He is not feeling much better. Vitals/I&O/Wt Last Vital Signs Temp 100.9 F H 09/19/24 13:48 Pulse 93 09/19/24 13:48 Resp 20 H 09/19/24 13:48 BP 132/83 09/19/24 13:48 Pulse Ox 98 09/19/24 13:15 O2 Del Method BiPAP 09/19/24 08:05 O2 Flow Rate 6 09/19/24 03:30 FiO2 40 09/19/24 13:15 09/19/24 09/19/24 09/19/24 06:59 14:59 22:59 Intake Total 517.5 / 517.5 682.5 / 682.5 Output Total 0 / 0 7500 / 7500 Balance 517.5 / 517.5 -6817.5 / -6817.5 Weight last 48 hrs Weight 93 kg Weight 90.718 kg Weight 90.718 kg Weight 81.647 kg Physical Exam 2 Const: COMMON NORMALS: patient oriented x3 and alert GENERAL APPEARANCE: c ooperative ORIENTATION/CONSCIOUSNESS: Yes awake OTHER: NIPPV HENMT: COMMON NORMALS: oropharynx normal Neck/C-Spine: COMMON NORMALS: no JVD Resp: COMMON NORMALS: normal respiratory effort and clear to auscultation bilaterally AUSCULTATION: clear to auscultation bilaterally Cardio: COMMON NORMALS: no JVD, regular rhythm, S1 normal heart sound present, S2 normal heart sound present and No murmurs present (Cardio) RHYTHM: regular rhythm HEART SOUNDS: S1 normal heart sound present and S2 normal heart sound present GI: COMMON NORMALS: Normal to inspection, nondistended, normoactive bowel sounds present, Soft to palpation and non-tender PALPATION: Yes Soft to palpation Extremity: COMMON NORMALS: no joint enlargement NARRATIVE EXTREMITY EXAM: Anasarca with severe scrotal edema GENERAL: Yes edema OTHER: Without appreciable swelling of left knee, no erythema, no warmth compared to the right side. Neuro: COMMON NORMALS: patient oriented x3 and moves all extremities S ENSORIUM/ORIENTATION: Yes alert Skin: COMMON NORMALS: no rashes or lesions noted GENERAL SKIN EXAM: no rashes or lesions noted Data 09/19/24 06:44 09/19/24 06:44 Micro: Microbiology 09/19/24 00:38 Blood Culture - Preliminary Blood SPECIMEN COLLECTED 09/19/24 00:40 Blood Culture - Preliminary Blood SPECIMEN COLLECTED A&P Assessment and plan (1) Severe sepsis: (2) Epididymitis: (3) Acute on chronic heart failure with preserved ejection fraction (HFpEF): (4) Acute and chronic respiratory failure, unspecified whether with hypoxia or hypercapnia: (5) High anion gap metabolic acidosis: Plan Mal Gibbs is a 44 yo man w/ anuric ESRD on TTS HD via a L. AVF, hx of non-compliance, pulmonary hypertension, HTN, HLD, COPD, chronic hypoxic respiratory failure on 4L NC, who presented to the ED on 09/18/2024 with complaints of dyspnea and scrotal pain. He was admitted for CHF exacerbation, SVT and hypoglycemia. #Severe Sepsis Status post paracentesis, lab studies ordered. Follow-up. Continue empiric antibiotic coverage with ceftriaxone and vancomycin. - Possibly due to SBP, Epididymitis. Recently treated for septic arthritis of left knee without appearance of flare or acute infection in the left knee. Follow-up scrotal US ordered - On Vanc, Ceftriaxone Reviewed vitals, CBC, INR, ABG, CMP, troponin series, NT proBNP, respiratory viral panel. Entero-/rhinovirus infection. Continue isolation. Supportive measures. #Abdominal distention - Concern for Spontaneous bacterial peritonitis - Paracentesis, follow-up studies #Epididymitis. Continue ceftriaxone. Add ciprofloxacin. Monitor for risk of C. difficile. SJS. Scrotal US pending Hypoglycemia: Blood glucose dipping down to the 60s. Will start D10 for now. #Acute on chronic HFpEF w/ mild mitral regurgitation. Hemodialysis this morning. Reassess volume status. With anasarca, bilateral lower extremity swelling, severe scrotal edema. Elevate scrotum. #Vol overload #ESRD on HD - Appreciate nephrology consultation. Reviewed note. #Hyperkalemia: Underwent hemodialysis. Recheck chemistry #High AGAP Metabolic acidosis - Multifactorial including ESRD and lactate. Monitor #HTN urgency: Blood pressure with improvement. - On Nicardipine drip and hydralazine prn. #Acute on chronic hypoxic hypercapneic respiratory failure -Improved on BiPAP. repeat ABG reviewed, with improvement. Weaned off BiPAP as tolerating. #COPD - unclear that he is in exacerbation. #DM2. Currently hypoglycemic. - Monitor BG #SVT: no acute issues. He self converted almost immediately. Reviewed chemistry, potassium, magnesium. Underwent hemodialysis. Monitor on telemetry. DVT ppx: subq heparin PPI: Pantoprazole. PDMP PDMP Reviewed: Not Reviewed Attestations 2 Medical Necessity Statement*: Continue admission for assessment management of sepsis, possible SBP, epididymitis, hypoglycemia, CHF with anasarca, fluid overload, severe scrotal edema in a gentleman with underlying ESRD. Coding Level of Care Code 81909 Diagnoses Severe sepsis A41.9; R65.20 Epididymitis N45.1 Acute on chronic heart failure with preserved ejection fraction (HFpEF) I50.33 Acute and chronic respiratory failure, unspecified whether with hypoxia or hypercapnia J96.20 High anion gap metabolic acidosis E87.29
[2024-09-19] MEDS: HYDROcodone-acetaminophen 5-325 mg Tablet 1 TAB PO ×2 (16:48→21:34)
[2024-09-19] MEDS: carvedilol 25 mg Tablet 37.5 MG PO (16:48)
[2024-09-19] MEDS: dextrose 10% 1,000 ML 30 ML IV (16:49)
[2024-09-19] MEDS: hyDRALAzine 50 mg Tablet 100 MG PO (16:49)
[2024-09-19 16:54] LABS: Glucose Point of Care 66 mg/dL (70-110)
--- NOTE | 2024-09-19 17:04 | PC.NURSE ---
Blood glucose still in 60s, Dayanara Bravo gave order for d10 at 30/hr
[2024-09-19] MEDS: ciprofloxacin 400 MG/200 ML PREMIX 200 MG IV (17:44)
[2024-09-19 19:09] LABS: Glucose Point of Care 47 mg/dL (70-110)
[2024-09-19 19:09] LABS: Glucose Point of Care 37 mg/dL (70-110)
[2024-09-19 19:09] LABS: Glucose Point of Care 239 mg/dL (70-110)
[2024-09-19 19:09] LABS: Glucose Point of Care 132 mg/dL (70-110)
[2024-09-19 19:09] LABS: Glucose Point of Care 45 mg/dL (70-110)
[2024-09-19 19:09] LABS: Glucose Point of Care 49 mg/dL (70-110)
[2024-09-19 19:32] LABS: Color, Body Fluid YELLOW
[2024-09-19 19:33] LABS: Apprearance, Body Fluid CLEAR; Cyto Order Verification Order Verified; PATH Referral YES
[2024-09-19 19:35] LABS: Body Fluid Polynuclear #Cells 0.001; Body Fluid WBC 4 /uL; Monocytes # Body Fluid 0.003; RBC, Body Fluid 0 10^3/uL
[2024-09-19 19:49] LABS: Body Fluid Specific Gravity 1.022
[2024-09-19 20:17] LABS: Glucose Point of Care 75 mg/dL (70-110)
[2024-09-19 20:28] LABS: Albumin Body Fluid 1.3 g/dL; Cholesterol Body Fluid 36 mg/dL (0-200); Fluid Alkaline Phos. 37 IU/L; LDH Body Fluid 111 U/L; Total Protein Body Fluid 3.1 g/dL; Triglycerides Body Fluid 30 mg/dL (0-150); Uric Acid Body Fluid 5 mg/dL
[2024-09-19] MEDS: minoxidil 10 mg Tablet PO (21:34)
--- NOTE | 2024-09-19 23:14 | PC.NURSE ---
Pt reported ongoing pain following PRN norco administered at 1700. Spoke with Dr. Combs regarding same and made aware of blood sugars in 70's but trending up. New order received for 2mg Morphine q6 hours prn x4 doses, and administer d50 if blood sugar continues to drop. Has continued to trend up and medication has not been administered. Contacted lab regarding order for chlamydia/gonorrhea screen. Pt has not voided for specimin and is oliguric, pt has refused catheter, per lab instruction unable to obtain via swab. Pt also refused evening heparin injection. Pt able to state it is for blood clot prevention, but stated I get stuck enough every day, I don't want to be stuck again for that.
[2024-09-20] VITALS (28 sets, daily range): BP systolic 103–139; BP diastolic 53–83; PULSE 60–69; RESP 12–20; TEMP 34.7–37.1; O2SAT 92–99
[2024-09-20] MEDS: ipratropium-albuterol 3 mL Neb INHALATION ×4 (01:23→20:20)
[2024-09-20 02:23] LABS: Glucose Point of Care 84 mg/dL (70-110)
[2024-09-20 02:23] LABS: Glucose Point of Care 74 mg/dL (70-110)
[2024-09-20 02:23] LABS: Glucose Point of Care 89 mg/dL (70-110)
[2024-09-20 02:23] LABS: Glucose Point of Care 70 mg/dL (70-110)
[2024-09-20 02:23] LABS: Glucose Point of Care 85 mg/dL (70-110)
[2024-09-20] MEDS: hyDRALAzine 50 mg Tablet 100 MG PO ×2 (02:24→09:01)
[2024-09-20 03:42] LABS: Glucose Point of Care 78 mg/dL (70-110)
[2024-09-20] MEDS: morphine 4 mg/mL SDV 1 mL 2 MG IVP ×4 (03:45→23:31)
[2024-09-20] MEDS: cefTRIAXone 2,000 mg SDV 2000 MG IVP (05:04)
[2024-09-20] MEDS: carvedilol 25 mg Tablet 37.5 MG PO ×2 (05:04→16:04)
[2024-09-20] MEDS: pantoprazole 40 mg SDV IVP (05:04)
[2024-09-20 05:18] LABS: Basophils % 0.8 %; Eosinophils # 0.2 10^3/uL (0.0-0.8); Eosinophils % 4.5 %; Hematocrit 30.9 % (37-53); Lymphocytes # 0.4 10^3/uL (0.8-4.8); Mean Corpuscular HGB Conc 31.4 g/dL (30-55); Mean Corpuscular Hemoglobin 27.7 pg (27-33); Mean Corpuscular Volume 88.3 fl (82-101); Mean Platelet Volume 11.1 fL (7.4-10.4); Monocytes # 0.2 10^3/uL (0.2-0.9); Monocytes % 3.5 %; Neutrophils # 4.21 10^3/uL (1.8-7.7); Neutrophils % 82.6 %; Nucleated Red Blood Cells # 0.1 /100WBC; Nucleated Red Blood Cells % 1.2 %; Platelet Count 81 10^3/cmm (157-399); Red Cell Distribution Width 17.8 % (12.1-15.1)
[2024-09-20 05:51] LABS: Albumin Level 2.2 g/dL (3.5-5.2); Alkaline Phosphatase 140 U/L (40-130); Anion Gap 13.4 (5-19); Blood Urea Nitrogen 23 mg/dL (6-20); Calcium 8.8 mg/dL (8.5-10.5); Carbon Dioxide 27 mmol/L (22-29); Chloride 98 mmol/L (98-107); Creatinine Clr Calc Pharmacy 20.2286; Globulin 3.7 g/dL (1.3-4.6); Glomerular Filtration Rate 11.5 mL/min (90-130); Glucose 85 mg/dL (65-115); Osmolality Calculated 281 mOsm/kg (285-295); Phosphorus 5.2 mg/dL (2.5-4.5); Potassium 4.4 mmol/L (3.5-5.1); Sodium 134 mmol/L (136-145); Total Bilirubin 0.8 mg/dL (0.15-1.2); Total Protein 5.9 g/dL (6.6-8.7)
[2024-09-20 05:54] LABS: Slide Review Slide Review Perform
[2024-09-20 06:06] LABS: Alanine Aminotransferase 780 U/L (0-41)
[2024-09-20 06:17] LABS: Aspartate Amino Transferase 4550 U/L (0-40)
[2024-09-20 06:28] LABS: Glucose Point of Care 75 mg/dL (70-110)
[2024-09-20 07:50] LABS: Glucose Point of Care 81 mg/dL (70-110)
[2024-09-20] MEDS: minoxidil 10 mg Tablet PO (09:01)
--- NOTE | 2024-09-20 10:05 | P.PN_ITS ---
Subjective 2 Subjective: weak, but feels better then yesterday. very weak, nausea, swollen, scrotal pain Medications: Reviewed: Yes Medication Review Details: Current Medications Acetaminophen (Acetaminophen 325 Mg Tablet) 650 mg PO Q6H PRN PRN Reason: Mild/Mod Pain Or Temp >/= 101 Hydrocodone Bitart/Acetaminophen (Hydrocodone-Acetaminophen 5-325 Mg Tablet) 1 tab PO Q4H PRN PRN Reason: MODERATE TO SEVERE PAIN Last Admin: 09/19/24 21:34 Dose: 1 tab Albuterol/Ipratropium (Ipratropium-Albuterol 3 Ml Neb) 3 ml INHALATION Q6H.RESP [facility] Last Admin: 09/20/24 08:17 Dose: 3 ml Carvedilol (Carvedilol 25 Mg Tablet) 37.5 mg PO Q12H [facility] Last Admin: 09/20/24 05:04 Dose: 37.5 mg Ceftriaxone Sodium (Ceftriaxone 2,000 Mg Sdv) 2,000 mg IVP Q24H [facility]; Protocol Last Admin: 09/20/24 05:04 Dose: 2,000 mg Heparin Sodium (Porcine) (Heparin 5,000 Unit/Ml Inj 1 Ml) 5,000 unit SUBCUT Q12H [facility] Last Admin: 09/20/24 09:14 Dose: Not Given Hydralazine HCl (Hydralazine 20 Mg/Ml Inj 1 Ml) 10 mg IVP Q4H PRN PRN Reason: HYPERTENSION Hydralazine HCl (Hydralazine 50 Mg Tablet) 100 mg PO Q8H [facility] Last Admin: 09/20/24 09:01 Dose: 100 mg Nicardipine/Sodium Chloride (Cardene) 20 mg in 200 mls @ 0 mls/hr IV .Q0M [facility]; Protocol On Hold: 09/19/24 16:31 Last Admin: 09/19/24 11:07 Dose: 7.5 mg/hr, 75 mls/hr Dextrose (D5w) 500 mls @ 0 mls/hr IV ONCE PRN; Protocol PRN Reason: Adult Acute Hypoglycemia Prot Dextrose (D10w) 125 mls @ 750 mls/hr IV PRN PRN; Protocol PRN Reason: Adult Acute Hypoglycemia Nursing Protocol Dextrose (D10w) 250 mls @ 1,000 mls/hr IV PRN PRN; Protocol PRN Reason: Adult Acute Hypoglycemia Nursing Protocol Dextrose (D10w) 1,000 mls @ 30 mls/hr IV .Q24H [facility] Last Admin: 09/19/24 16:49 Dose: 30 mls/hr Ciprofloxacin/Dextrose (Cipro) 400 mg in 200 mls @ 200 mls/hr IV Q24H [facility]; Protocol Last Infusion: 09/20/24 01:07 Dose: Infused Minoxidil (Minoxidil 10 Mg Tablet) 10 mg PO TID [facility] Last Admin: 09/20/24 09:01 Dose: 10 mg Morphine Sulfate (Morphine 4 Mg/Ml Sdv 1 Ml) 2 mg IVP Q6H PRN PRN Reason: SEVERE PAIN Last Admin: 09/20/24 09:05 Dose: 2 mg Naloxone HCl (Naloxone 0.4 Mg/Ml Sdv) 0.1 mg IVP Q2M PRN PRN Reason: OPIATERV Ondansetron HCl (Ondansetron 4 Mg Tablet) 4 mg PO Q6H PRN PRN Reason: NAUSEA Ondansetron HCl (Ondansetron 2 Mg/Ml Sdv 2 Ml) 4 mg IVP Q6H PRN PRN Reason: vomiting, or N/V if npo Pantoprazole Sodium (Pantoprazole 40 Mg Sdv) 40 mg IVP Q24H [facility] Last Admin: 09/20/24 05:04 Dose: 40 mg Vancomycin HCl (Vancomycin 1,000 Mg Sdv (Pharmacy Mix)) 0 mg XX PRN PRN PRN Reason: Pharmacy to Dose Vitals/I&O/Wt Last Vital Signs Temp 98.8 F 09/20/24 00:30 Pulse 64 09/20/24 09:00 Resp 14 09/20/24 09:05 BP 119/72 09/20/24 09:00 Pulse Ox 96 09/20/24 09:05 O2 Del Method Nasal Cannula 09/20/24 08:19 O2 Flow Rate 4 09/20/24 08:19 FiO2 40 09/20/24 01:25 09/19/24 09/20/24 09/20/24 22:59 06:59 14:59 Intake Total 120 / 802.5 320 / 1122.5 Balance 120 / -6697.5 320 / -6377.5 Weight last 48 hrs Weight 84.5 kg Weight 93 kg Weight 90.718 kg Weight 90.718 kg Weight 81.647 kg Physical Exam 2 Narrative: Very ill-appearing cachectic sitting up using oxygen uncomfortable heent- nc/at, eomi neck supple, +JVP lungs dull bases and crackles heart regular abdomen + decreased ascites, + umbilical hernia, distended, +BS significant scrotal edema and tenderness extremities 2+ edema + left Arm AVG neuro-awake alert and appropriate following commands seen and examined w/ aide of a nurse using A/V equipment Data 09/20/24 04:48 09/20/24 04:48 Micro: Microbiology 09/19/24 00:40 Blood Culture - Preliminary Blood NEGATIVE TO DATE 09/19/24 00:38 Blood Culture - Preliminary Blood NEGATIVE TO DATE A&P Assessment and plan (1) End stage renal disease on dialysis: 44 year old man 1. ESRD- volume overloaded and Htn-patient had hemodialysis and large-volume for liter paracentesis yesterday. Patient is feeling better however request for further fluid removal. Will repeat ultrafiltration today and assess for full dialysis tomorrow. 2. fevers and recent paracentesis w/ klebsiella-patient had repeat paracentesis. There was yellow fluid only for white cells does not appear to have a peritonitis. Antibiotics as per house doctor 3. dm- monitor glucose 4. anemia- has h/o high ferritin. check iron studies. will not give iv iron if bacteremia. no epogen till bP improves 5.severe cachexia 6. recent echo last month EF 65%, no severe valvular disease 7. Blood pressure much improved with volume removed. As patient is on many medications which I am not sure if he is taking at home I will decrease hydralazine to 25 mg every 8 hours and decrease minoxidil to daily may need to taper down medications to allow for fluid removal on dialysis. Scrotal ultrasound reviewed extensive scrotal edema with right epididymitis not excluded right testicle and epididymis not visualized due to significant edema. seen and examined w/ RN using A/ V equipment. pt consents o HD and telehealth visits Plan see above PDMP PDMP Reviewed: Not Reviewed Attestations 2 Medical Necessity Statement*: ESRD, infection cachexia, anemia Time Spent in Patient Care: Greater than 35 minutes (>than 50% of time spent in counselling and/or direct pt care on unit) . Coding Level of Care Code Acute Code for Chg Fwd Diagnoses End stage renal disease on dialysis N18.6; Z99.2
--- NOTE | 2024-09-20 10:23 | PC.NURSE ---
This nurse took report from JAGUAR Barber in ICU at 1022.
--- NOTE | 2024-09-20 10:23 | PC.NURSE ---
patient refused sq heparin
--- NOTE | 2024-09-20 11:26 | PC.NURSE ---
This nurse assumed care of pt at this time.
[2024-09-20] MEDS: dextrose 10% 1,000 ML 30 ML IV (11:37)
[2024-09-20 11:48] LABS: Glucose Point of Care 75 mg/dL (70-110)
--- NOTE | 2024-09-20 12:41 | PC.NURSE ---
Update given to [facility].
[2024-09-20] MEDS: HYDROcodone-acetaminophen 5-325 mg Tablet 1 TAB PO ×2 (16:04→20:27)
[2024-09-20] MEDS: ciprofloxacin 400 MG/200 ML PREMIX 200 MG IV (16:05)
--- NOTE | 2024-09-20 16:38 | USR_ITS ---
PROCEDURE INFORMATION: Exam: US Abdomen, Limited; Right Upper Quadrant Exam date and time: 09/20/2024 4:49 PM Age: 44 years old Clinical indication: Condition or disease; Liver condition; Cirrhosis; Additional info: Transaminitis, assess duplex portal and hepatic veins for any thrombus TECHNIQUE: Imaging protocol: Real time ultrasound of the abdomen with image documentation. Limited exam focused on the right upper quadrant. COMPARISON: [place] paracentesis abd w [id number] 09/19/2024 7:01 AM FINDINGS: Liver: Hepatomegaly. Nodular hepatic contour. Coarse parenchyma. Gallbladder: Gallbladder is partially distended and demonstrates significant wall thickening. Gallbladder wall measures up to 0.4 cm. No gallstones visualized. Biliary ducts: Normal. No stones. No dilation. Pancreas: Visualized pancreas is unremarkable. Right kidney: Right kidney is not visualized. Aorta: Visualized portions of aorta are patent. Inferior vena cava: Visualized portions of IVC patent. Portal venous: Main portal vein is patent and demonstrates hepatopetal flow. Hepatic veins: Visualized hepatic veins appear patent. Intraperitoneal space: Per technologist limited exam due to ascites. US/US liver [id number] IMPRESSION: 1. Limited exam due to large ascites. 2. Hepatomegaly with cirrhotic liver morphology. 3. Main portal vein and visualized hepatic veins are patent. 4. Significant gallbladder wall thickening without cholelithiasis. Findings are likely reactive due to extensive ascites. If there is clinical concern for acute or chronic cholecystitis further evaluation with HIDA scan might be helpful.
--- NOTE | 2024-09-20 16:40 | P.PN_ITS ---
Subjective 2 Subjective: Feels slightly better compared to admission, but overall unimproved. Bothered by pain in scrotum. Vitals/I&O/Wt Last Vital Signs Temp 98.2 F 09/20/24 16:00 Pulse 67 09/20/24 16:00 Resp 17 09/20/24 16:00 BP 112/67 09/20/24 16:00 Pulse Ox 96 09/20/24 16:00 O2 Del Method Nasal Cannula 09/20/24 16:00 O2 Flow Rate 4 09/20/24 16:00 FiO2 40 09/20/24 01:25 09/20/24 09/20/24 09/20/24 06:59 14:59 22:59 Intake Total 320 / 1122.5 2100 / 2100 Output Total 2500 / 2500 Balance 320 / -6377.5 -400 / -400 Weight last 48 hrs Weight 97 kg Weight 84.5 kg Weight 93 kg Weight 90.718 kg Weight 90.718 kg Weight 81.647 kg Physical Exam 2 Const: COMMON NORMALS: patient oriented x3 and alert GENERAL APPEARANCE: c ooperative ORIENTATION/CONSCIOUSNESS: Yes awake OTHER: NC HENMT: COMMON NORMALS: oropharynx normal Neck/C-Spine: COMMON NORMALS: no JVD Resp: COMMON NORMALS: normal respiratory effort and clear to auscultation bilaterally AUSCULTATION: clear to auscultation bilaterally Cardio: COMMON NORMALS: no JVD, regular rhythm, S1 normal heart sound present, S2 normal heart sound present and No murmurs present (Cardio) RHYTHM: regular rhythm HEART SOUNDS: S1 normal heart sound present and S2 normal heart sound present GI: COMMON NORMALS: Normal to inspection, nondistended, normoactive bowel sounds present, Soft to palpation and non-tender PALPATION: Yes Soft to palpation Extremity: COMMON NORMALS: no joint enlargement NARRATIVE EXTREMITY EXAM: Anasarca with severe scrotal edema GENERAL: Yes edema OTHER: Without appreciable swelling of left knee, no erythema, no warmth compared to the right side. Neuro: COMMON NORMALS: patient oriented x3 and moves all extremities S ENSORIUM/ORIENTATION: Yes alert Skin: COMMON NORMALS: no rashes or lesions noted GENERAL SKIN EXAM: no rashes or lesions noted Data 09/20/24 04:48 09/20/24 04:48 Micro: Microbiology 09/19/24 13:25 Gram Stain - Final Peritoneal Fluid Body Fluid Culture - Preliminary 09/19/24 00:40 Blood Culture - Preliminary Blood NEGATIVE TO DATE 09/19/24 00:38 Blood Culture - Preliminary Blood NEGATIVE TO DATE A&P Assessment and plan (1) Severe sepsis: (2) Epididymitis: (3) Acute on chronic heart failure with preserved ejection fraction (HFpEF): (4) Acute and chronic respiratory failure, unspecified whether with hypoxia or hypercapnia: (5) High anion gap metabolic acidosis: Plan Mal Gibbs is a 44 yo man w/ anuric ESRD on TTS HD via a L. AVF, hx of non-compliance, pulmonary hypertension, HTN, HLD, COPD, chronic hypoxic respiratory failure on 4L NC, who presented to the ED on 09/18/2024 with complaints of dyspnea and scrotal pain. He was admitted for CHF exacerbation, SVT and hypoglycemia. Transaminitis: Having a significant elevation of transaminase 15 - 1302 - 4550 today. ALT up to 780. Check CK for possible rhabdo. Check US liver, including duplex portal and hepatic veins for any thrombosis. He has not had abdominal pain. Reviewed hepatitis panel. Moderate to severe transaminase elevation, possible medication toxicity. With hypoglycemia, monitor for possible acute liver failure. Reassess mental status. Hold ceftriaxone and hydralazine which may cause hepatotoxicity. With PLT decrease. Reassess chemistry. Check INR. CBC. Acutely decompensated liver cirrhosis on presentation with ascites, INR elevated higher than usual. Thrombocytopenia. #Severe Sepsis: resolved. With noted transaminitis, AST up to 4550, ALT up to 780. Hold ceftriaxone. With possible epididymitis. Appears less likely SBP, culture reviewed, no growth. Reviewed blood culture, negative. Recent possible septic arthritis? Will request records from [place]. Status post paracentesis, lab studies ordered. Follow-up. Continue empiric antibiotic coverage with ceftriaxone and vancomycin. - Possibly due to SBP, Epididymitis. Recently treated for septic arthritis of left knee without appearance of flare or acute infection in the left knee. Follow-up scrotal US ordered Thrombocytopenia: Platelets down to 81,000. Requesting peripheral smear, LDH, haptoglobin. Repeat blood counts. Hold ceftriaxone, hydralazine. PPI. Possible medication effect. Possibly secondary to his viral illness. Entero-/rhinovirus infection. Continue isolation. Supportive measures. #Abdominal distention - Concern for Spontaneous bacterial peritonitis less likely. Without organisms on Gram stain or culture. Status post paracentesis. #Epididymitis. Continue ciprofloxacin. Hold ceftriaxone. Reassess transaminitis. Monitor for risk of C. difficile. SJS. Scrotal US reviewed with him. Scrotal elevation. Hypoglycemia: Improved but still on D10. Reduced frequency of Accu-Cheks. Reassess POC glucose. #Acute on chronic HFpEF w/ mild mitral regurgitation. Hemodialysis this morning. Reassess volume status. With anasarca, bilateral lower extremity swelling, severe scrotal edema. Elevate scrotum. #Vol overload #ESRD on HD - Appreciate nephrology consultation. Reviewed note. #Hyperkalemia: Underwent hemodialysis. Recheck chemistry #High AGAP Metabolic acidosis - Multifactorial including ESRD and lactate. Monitor #HTN urgency: Blood pressure with improvement. - On Nicardipine drip and hydralazine prn. #Acute on chronic hypoxic hypercapneic respiratory failure -Improved on BiPAP. repeat ABG reviewed, with improvement. Weaned off BiPAP as tolerating. #COPD - unclear that he is in exacerbation. #DM2. Currently hypoglycemic. - Monitor BG #SVT: no acute issues. He self converted almost immediately. Reviewed chemistry, potassium, magnesium. Underwent hemodialysis. Monitor on telemetry. DVT ppx: subq heparin PPI: Pantoprazole. PDMP PDMP Reviewed: Not Reviewed Attestations 2 Medical Necessity Statement*: Continue admission for assessment management of hepatic decompepnsation, possible SBP, epididymitis, hypoglycemia, CHF with anasarca, fluid overload, severe scrotal edema in a gentleman with underlying ESRD. and High MDM includes number and complexity of problems actively addressed during encounter and described risk of complication, morbidity or mortality of management as documented Diagnoses Severe sepsis A41.9; R65.20 Epididymitis N45.1 Acute on chronic heart failure with preserved ejection fraction (HFpEF) I50.33 Acute and chronic respiratory failure, unspecified whether with hypoxia or hypercapnia J96.20 High anion gap metabolic acidosis E87.29
[2024-09-20 16:42] LABS: Glucose Point of Care 89 mg/dL (70-110)
[2024-09-20 16:59] LABS: LAB Peripheral Smear Sent for Review
[2024-09-20 17:24] LABS: Creatine Phosphokinase 159 U/L (39-308)
[2024-09-20 17:38] LABS: Lactate Dehydrogenase 1765 U/L (135-225)
[2024-09-20 20:15] LABS: Glucose Point of Care 112 mg/dL (70-110)
[2024-09-20 22:22] LABS: Glucose Point of Care 88 mg/dL (70-110)
[2024-09-21] VITALS (12 sets, daily range): BP systolic 107–124; BP diastolic 58–78; PULSE 60–68; RESP 16–18; TEMP 36.3–36.7; O2SAT 92–99
[2024-09-21] MEDS: ipratropium-albuterol 3 mL Neb INHALATION ×4 (01:52→19:37)
[2024-09-21 02:07] LABS: Glucose Point of Care 93 mg/dL (70-110)
[2024-09-21] MEDS: carvedilol 25 mg Tablet 37.5 MG PO ×2 (04:09→17:44)
[2024-09-21] MEDS: HYDROcodone-acetaminophen 5-325 mg Tablet 1 TAB PO ×2 (05:31→11:26)
[2024-09-21 06:01] LABS: Basophils # 0.1 10^3/uL (0.0-0.1); Basophils % 1.2 %; Eosinophils # 0.6 10^3/uL (0.0-0.8); Eosinophils % 11.7 %; Hematocrit 29.3 % (37-53); Lymphocytes # 0.5 10^3/uL (0.8-4.8); Lymphocytes % 8.8 %; Mean Corpuscular HGB Conc 31.1 g/dL (30-55); Mean Corpuscular Volume 86.9 fl (82-101); Mean Platelet Volume 11.6 fL (7.4-10.4); Monocytes # 0.2 10^3/uL (0.2-0.9); Monocytes % 2.9 %; Neutrophils # 3.84 10^3/uL (1.8-7.7); Nucleated Red Blood Cells # 0.1 /100WBC; Platelet Count 96 10^3/cmm (157-399); Red Blood Count 3.37 10^6/uL (3.85-5.65); Red Cell Distribution Width 17.3 % (12.1-15.1); White Blood Count 5.12 10^3/uL (3.29-11.43)
[2024-09-21 06:08] LABS: INR 1.67 (0.8-1.2)
[2024-09-21 06:22] LABS: Alanine Aminotransferase 487 U/L (0-41); Alkaline Phosphatase 193 U/L (40-130); Anion Gap 14.5 (5-19); Blood Urea Nitrogen 32 mg/dL (6-20); Carbon Dioxide 26 mmol/L (22-29); Chloride 97 mmol/L (98-107); Creatinine Clr Calc Pharmacy 18.2988; Globulin 3.7 g/dL (1.3-4.6); Glomerular Filtration Rate 9.6 mL/min (90-130); Glucose 93 mg/dL (65-115); Osmolality Calculated 283 mOsm/kg (285-295); Phosphorus 5.2 mg/dL (2.5-4.5); Potassium 4.5 mmol/L (3.5-5.1); Sodium 133 mmol/L (136-145); Total Bilirubin 0.5 mg/dL (0.15-1.2); Total Protein 5.7 g/dL (6.6-8.7)
[2024-09-21 06:36] LABS: Slide Review Slide Review Perform
[2024-09-21 06:41] LABS: Aspartate Amino Transferase 1628 U/L (0-40)
[2024-09-21 06:58] LABS: Glucose Point of Care 94 mg/dL (70-110)
[2024-09-21] MEDS: minoxidil 10 mg Tablet PO (08:49)
--- NOTE | 2024-09-21 08:52 | PC.NURSE ---
pt refused Heparin injection after this nurse had it pulled up. Pt requested pain medication and was informed it was not time until 0931am and he asked about his Morphine PRN. Informed patient the order was only for a max of 4 doses and he received his 4 doses. He got upset and said the [facility] does not work. Instructed patient to speak with his hospitalist.
--- NOTE | 2024-09-21 11:41 | P.PN_ITS ---
Subjective 2 Subjective: Scrotal edema and pain making it difficult for him to lay on his back. Has gotten up to the chair. Vitals/I&O/Wt Last Vital Signs Temp 97.6 F 09/21/24 08:00 Pulse 60 09/21/24 08:20 Resp 18 09/21/24 08:16 BP 122/71 09/21/24 08:00 Pulse Ox 99 09/21/24 08:16 O2 Del Method Nasal Cannula 09/21/24 08:16 O2 Flow Rate 4 09/21/24 08:16 FiO2 40 09/20/24 18:27 09/20/24 09/21/24 09/21/24 22:59 06:59 14:59 Intake Total 680 / 2780 600 / 600 Balance 680 / 280 600 / 600 Weight last 48 hrs Weight 95.254 kg Weight 97 kg Weight 84.5 kg Weight 93 kg Physical Exam 2 Const: COMMON NORMALS: patient oriented x3 and alert GENERAL APPEARANCE: c ooperative ORIENTATION/CONSCIOUSNESS: Yes awake OTHER: NC HENMT: COMMON NORMALS: oropharynx normal Neck/C-Spine: COMMON NORMALS: no JVD Resp: COMMON NORMALS: normal respiratory effort and clear to auscultation bilaterally AUSCULTATION: clear to auscultation bilaterally Cardio: COMMON NORMALS: no JVD, regular rhythm, S1 normal heart sound present, S2 normal heart sound present and No murmurs present (Cardio) RHYTHM: regular rhythm HEART SOUNDS: S1 normal heart sound present and S2 normal heart sound present GI: COMMON NORMALS: Normal to inspection, nondistended, normoactive bowel sounds present, Soft to palpation and non-tender PALPATION: Yes Soft to palpation Extremity: COMMON NORMALS: no joint enlargement NARRATIVE EXTREMITY EXAM: Anasarca with severe scrotal edema Persistent lower extremity edema GENERAL: Yes edema OTHER: Without appreciable swelling of left knee, no erythema, no warmth compared to the right side. Neuro: COMMON NORMALS: patient oriented x3 and moves all extremities S ENSORIUM/ORIENTATION: Yes alert Skin: COMMON NORMALS: no rashes or lesions noted GENERAL SKIN EXAM: no rashes or lesions noted Data 09/21/24 05:33 09/21/24 05:33 Micro: Microbiology 09/19/24 13:25 Gram Stain - Final Peritoneal Fluid Anaerobic Culture - Preliminary Body Fluid Culture - Preliminary A&P Assessment and plan (1) Severe sepsis: (2) Epididymitis: (3) Acute on chronic heart failure with preserved ejection fraction (HFpEF): (4) Acute and chronic respiratory failure, unspecified whether with hypoxia or hypercapnia: (5) High anion gap metabolic acidosis: Plan Mal Gibbs is a 44 yo man w/ anuric ESRD on TTS HD via a L. AVF, hx of non-compliance, pulmonary hypertension, HTN, HLD, COPD, chronic hypoxic respiratory failure on 4L NC, who presented to the ED on 09/18/2024 with complaints of dyspnea and scrotal pain. He was admitted for CHF exacerbation, SVT and hypoglycemia. Transaminitis: Having a significant elevation of transaminase 15 - 1302 - 4550 today. Reviewed CMP. Today AST with improvement down to 1628, ALT down to 487. T. bili is normal. Alk phos 193. CK reviewed, normal. Reviewed US liver, no portal and hepatic veins for any thrombosis. He has not had abdominal pain. Reviewed hepatitis panel. Moderate to severe transaminase elevation, possible medication toxicity. With hypoglycemia, monitor for possible acute liver failure. Reassess mental status. Hold ceftriaxone and hydralazine which may cause hepatotoxicity. With PLT decrease. CBC reviewed, platelets better today at 96,000. Acutely decompensated liver cirrhosis on presentation with ascites, INR elevated higher than usual. Thrombocytopenia. Reviewed INR. With improvement to 1.67. Discussed with him regarding prior consideration of evaluation of candidacy for organ transplant, he states on last testicular swelling can improve and resolve he will not consider liver and/for kidney transplantation. #Acute on chronic HFpEF w/ mild mitral regurgitation. Continue hemodialysis. Reassess volume status. #Anasarca with severe scrotal edema: He states he had been previously evaluated by urology at [facility]. He states that he was told that the testicle enlargement involved solid tissue per the urologist. Discussed with him on ultrasound imaging here he seemed to have edema. Consideration of scrotal wrap to shrink down the size, however, requesting records from [facility] to review urology assessment. He states that he also discussed with urology regarding surgical excision of the edematous scrotum due to persistent enlargement and pain, however, the surgeon did not think this was something they could offer. He will need to follow-up with urology. Discussed with nursing. Discussed with [employer]. #Epididymitis. Continue ciprofloxacin. Received ceftriaxone which was held due to rapidly rising transaminitis. Noted improvement today AST down to 1628. Reassess transaminitis. Monitor for risk of C. difficile. SJS. Reviewed chlamydia/gonorrhea panel, negative. Continue ciprofloxacin for now. Monitor for risk of C. difficile. #Severe Sepsis: resolved. With possible epididymitis not excluded due to difficulty with visualization due to scrotal edema. Appears less likely SBP, culture reviewed, no growth. Reviewed blood culture, negative. Recent possible septic arthritis? He states that the effusion was drained and he received antibiotics, was not found to be a surgical candidate due to his comorbidities. Requesting records from [place]. Status post paracentesis, lab studies ordered. Follow-up. Continue empiric antibiotic coverage with ceftriaxone and vancomycin. - Possibly due to SBP, Epididymitis. Recently treated for septic arthritis? of left knee without appearance of flare or acute infection in the left knee. Thrombocytopenia: Improving. Reviewed platelets, with improvement to 96,000. Haptoglobin nonsuggestive hemolysis. Peripheral smear pending. Repeat blood counts. Hold ceftriaxone, hydralazine. PPI. Possible medication effect. Possibly secondary to his viral illness. Entero-/rhinovirus infection. Continue isolation. Supportive measures. #Abdominal distention - Concern for Spontaneous bacterial peritonitis less likely. Without organisms on Gram stain or culture. Status post paracentesis. Hypoglycemia: Improved but still on D10. Reduced frequency of Accu-Cheks. Reassess POC glucose. #ESRD on HD: - Appreciate nephrology consultation. Reviewed note. #Hyperkalemia: Underwent hemodialysis. Recheck chemistry #High AGAP Metabolic acidosis - Multifactorial including ESRD and lactate. Monitor #HTN urgency: Blood pressure with improvement. - On Nicardipine drip and hydralazine prn. #Acute on chronic hypoxic hypercapneic respiratory failure -Improved on BiPAP. repeat ABG reviewed, with improvement. Weaned off BiPAP as tolerating. #COPD - unclear that he is in exacerbation. #DM2. Currently hypoglycemic. - Monitor BG #SVT: no acute issues. He self converted almost immediately. Reviewed chemistry, potassium, magnesium. Underwent hemodialysis. Monitor on telemetry. DVT ppx: subq heparin PDMP PDMP Reviewed: Not Reviewed Attestations 2 Medical Necessity Statement*: Continue admission for assessment management of hepatic decompepnsation, possible SBP, epididymitis, hypoglycemia, CHF with anasarca, fluid overload, severe scrotal edema in a gentleman with underlying ESRD. and High MDM includes amount and/or complexity of data reviewed/ordered [ resulted lab(s)/test(s), ordered lab(s)/test(s) and other healthcare professional discussion] and described risk of complication, morbidity or mortality of management as documented Diagnoses Severe sepsis A41.9; R65.20 Epididymitis N45.1 Acute on chronic heart failure with preserved ejection fraction (HFpEF) I50.33 Acute and chronic respiratory failure, unspecified whether with hypoxia or hypercapnia J96.20 High anion gap metabolic acidosis E87.29
--- NOTE | 2024-09-21 13:14 | P.PN_ITS ---
Subjective 2 Subjective: no new c/0 Medications: Reviewed: Yes Vitals/I&O/Wt Last Vital Signs Temp 97.5 F L 09/21/24 11:55 Pulse 62 09/21/24 11:55 Resp 18 09/21/24 11:55 BP 107/58 09/21/24 11:55 Pulse Ox 98 09/21/24 11:55 O2 Del Method Nasal Cannula 09/21/24 11:55 O2 Flow Rate 4 09/21/24 08:16 FiO2 40 09/20/24 18:27 09/20/24 09/21/24 09/21/24 22:59 06:59 14:59 Intake Total 680 / 2780 1200 / 1200 Balance 680 / 280 1200 / 1200 Weight last 48 hrs Weight 95.254 kg Weight 97 kg Weight 84.5 kg Weight 93 kg Physical Exam 2 Narrative: Very ill-appearing cachectic sitting up using oxygen uncomfortable heent- nc/at, eomi neck supple, +JVP lungs dull bases and crackles heart regular abdomen + decreased ascites, + umbilical hernia, distended, +BS significant scrotal edema and tenderness extremities 2+ edema + left Arm AVG neuro-awake alert and appropriate following commands seen and examined w/ aide of a nurse using A/V equipment Data 09/21/24 05:33 09/21/24 05:33 Micro: Microbiology 09/19/24 13:25 Gram Stain - Final Peritoneal Fluid Anaerobic Culture - Preliminary Body Fluid Culture - Preliminary A&P Assessment and plan (1) End stage renal disease on dialysis: 44 year old man 1. ESRD- volume overloaded and Htn-patient had hemodialysis and large-volume for liter paracentesis . HD tomororw 2. fevers and recent paracentesis w/ klebsiella-patient had repeat paracentesis. There was yellow fluid only for white cells does not appear to have a peritonitis. Antibiotics as per house doctor 3. dm- monitor glucose 4. anemia- has h/o high ferritin. check iron studies. will not give iv iron if bacteremia. no epogen till bP improves 5.severe cachexia 6. recent echo last month EF 65%, no severe valvular disease 7. Blood pressure much improved with volume removed. 8. Scrotal ultrasound reviewed extensive scrotal edema with right epididymitis not excluded right testicle and epididymis not visualized due to significant edema. seen and examined w/ RN using A/ V equipment. pt consents o HD and telehealth visits Plan see above PDMP PDMP Reviewed: Not Reviewed Attestations 2 Medical Necessity Statement*: per howie Coding Level of Care Code Acute Code for Chg Fwd Diagnoses End stage renal disease on dialysis N18.6; Z99.2
--- NOTE | 2024-09-21 13:43 | PC.SOCIAL ---
IMM updated IMM dated and initialed, Copy given to patient and copy placed in chart
[2024-09-21] MEDS: HYDROmorphone tab 2 MG TABLET PO ×2 (14:04→21:03)
[2024-09-21] MEDS: ciprofloxacin 400 MG/200 ML PREMIX 200 MG IV (17:43)
[2024-09-21] MEDS: dextrose 10% 1,000 ML 30 ML IV (17:46)
[2024-09-21 21:14] LABS: Glucose Point of Care 94 mg/dL (70-110)
[2024-09-21 21:14] LABS: Glucose Point of Care 112 mg/dL (70-110)
[2024-09-21 21:14] LABS: Glucose Point of Care 93 mg/dL (70-110)
[2024-09-21 22:10] LABS: Glucose Point of Care 93 mg/dL (70-110)
--- NOTE | 2024-09-21 22:56 | PC.NURSE ---
this nurse in room for 2100 meds and nursing shift assessment. patient sitting on bed with legs crossed has complaints of pain, 2mg po dilaudid given, patient refused his 2100 heparin injection. patient has plus 3 pitting edema to left lower extremity, plus 4 pitting edema to right lower extremity, patients scrotum is 4 plus edema, patients bowel sounds are hypoactive to all 4 quadrants, patient has bilateral crackles to right and left upper and lower lungs, patient has a medial umbilical hernia, and finally patient has a fistula to left forearm. patient is alert and orientated to person place and birthday. patient very lethargic at this time. patient does not make any urine due to him being in stage 4 renal failure.
[2024-09-22] VITALS (15 sets, daily range): BP systolic 92–152; BP diastolic 50–118; PULSE 63–70; RESP 15–20; TEMP 36.5–36.7; O2SAT 94–99
[2024-09-22] MEDS: ipratropium-albuterol 3 mL Neb INHALATION ×4 (01:53→20:22)
[2024-09-22 02:56] LABS: Glucose Point of Care 86 mg/dL (70-110)
[2024-09-22] MEDS: HYDROmorphone tab 2 MG TABLET PO ×4 (03:00→21:46)
[2024-09-22] MEDS: carvedilol 25 mg Tablet 37.5 MG PO ×2 (05:19→17:39)
[2024-09-22 06:04] LABS: Basophils # 0.1 10^3/uL (0.0-0.1); Basophils % 1.1 %; Eosinophils # 0.8 10^3/uL (0.0-0.8); Eosinophils % 13.9 %; Hematocrit 30.2 % (37-53); Lymphocytes # 0.6 10^3/uL (0.8-4.8); Lymphocytes % 9.9 %; Mean Corpuscular HGB Conc 31.1 g/dL (30-55); Mean Corpuscular Volume 86.8 fl (82-101); Mean Platelet Volume 10.9 fL (7.4-10.4); Monocytes # 0.3 10^3/uL (0.2-0.9); Monocytes % 5.5 %; Neutrophils # 3.92 10^3/uL (1.8-7.7); Neutrophils % 68.9 %; Nucleated Red Blood Cells # 0.1 /100WBC; Nucleated Red Blood Cells % 1.1 %; Platelet Count 93 10^3/cmm (157-399); Red Blood Count 3.48 10^6/uL (3.85-5.65); Red Cell Distribution Width 17.4 % (12.1-15.1); White Blood Count 5.68 10^3/uL (3.29-11.43)
[2024-09-22 06:29] LABS: Alanine Aminotransferase 401 U/L (0-41); Albumin Level 2.1 g/dL (3.5-5.2); Alkaline Phosphatase 289 U/L (40-130); Anion Gap 17.9 (5-19); Blood Urea Nitrogen 41 mg/dL (6-20); Calcium 8.9 mg/dL (8.5-10.5); Carbon Dioxide 24 mmol/L (22-29); Chloride 95 mmol/L (98-107); Creatinine Clr Calc Pharmacy 16.0428; Globulin 3.7 g/dL (1.3-4.6); Glomerular Filtration Rate 8.3 mL/min (90-130); Glucose 78 mg/dL (65-115); Osmolality Calculated 283 mOsm/kg (285-295); Phosphorus 4.9 mg/dL (2.5-4.5); Potassium 4.9 mmol/L (3.5-5.1); Sodium 132 mmol/L (136-145); Total Bilirubin 0.5 mg/dL (0.15-1.2); Total Protein 5.8 g/dL (6.6-8.7)
[2024-09-22 06:34] LABS: Glucose Point of Care 87 mg/dL (70-110)
[2024-09-22 06:51] LABS: Aspartate Amino Transferase 794 U/L (0-40)
[2024-09-22] MEDS: minoxidil 10 mg Tablet PO (08:01)
[2024-09-22 10:13] LABS: Glucose Point of Care 90 mg/dL (70-110)
[2024-09-22] MEDS: albumin 12.5 GM/50 ML VIAL IV (10:22)
[2024-09-22 14:36] LABS: Glucose Point of Care 87 mg/dL (70-110)
--- NOTE | 2024-09-22 14:37 | P.PN_ITS ---
Subjective 2 Subjective: getting HD Medications: Reviewed: Yes Vitals/I&O/Wt Last Vital Signs Temp 98.1 F 09/22/24 13:43 Pulse 70 09/22/24 14:20 Resp 20 H 09/22/24 14:00 BP 119/70 09/22/24 13:43 Pulse Ox 97 09/22/24 14:00 O2 Del Method Nasal Cannula 09/22/24 14:00 O2 Flow Rate 3 09/22/24 14:00 FiO2 40 09/20/24 18:27 09/21/24 09/22/24 09/22/24 22:59 06:59 14:59 Intake Total 2003.5 / 3204.5 600 / 3804.5 1510 / 1510 Output Total 2901 / 2901 Balance 2003.5 / 3204.5 600 / 3804.5 -1391 / -1391 Weight last 48 hrs Weight 93.3 kg Weight 94.489 kg Weight 95.254 kg Weight 97 kg Physical Exam 2 Narrative: Very ill-appearing cachectic sitting up using oxygen uncomfortable heent- nc/at, eomi neck supple, +JVP lungs dull bases and crackles heart regular abdomen + decreased ascites, + umbilical hernia, distended, +BS significant scrotal edema and tenderness extremities 2+ edema + left Arm AVG neuro-awake alert and appropriate following commands seen and examined w/ aide of a nurse using A/V equipment Data 09/22/24 05:00 09/22/24 05:00 Micro: Microbiology 09/19/24 13:25 Gram Stain - Final Peritoneal Fluid Anaerobic Culture - Preliminary Body Fluid Culture - Preliminary 09/19/24 13:25 Mycobacterial Smear - Preliminary Body Fluids - Peritoneal A&P Assessment and plan (1) End stage renal disease on dialysis: 44 year old man 1. ESRD- volume overloaded and Htn-patient had hemodialysis and large-volume for liter paracentesis . HD today 2. fevers and recent paracentesis w/ klebsiella-patient had repeat paracentesis. 3. DM 4. anemia- has h/o high ferritin. check iron studies. 5.severe cachexia 6. recent echo last month EF 65%, no severe valvular disease 7. Blood pressure much improved with volume removed. 8. Scrotal ultrasound reviewed extensive scrotal edema with right epididymitis not excluded right testicle and epididymis not visualized due to significant edema. seen and examined w/ RN using A/ V equipment. pt consents o HD and telehealth visits Plan see above PDMP PDMP Reviewed: Not Reviewed Attestations 2 Medical Necessity Statement*: per howie Coding Level of Care Code Acute Code for Chg Fwd Diagnoses End stage renal disease on dialysis N18.6; Z99.2
--- NOTE | 2024-09-22 16:39 | P.PN_ITS ---
Subjective 2 Subjective: And improved with scrotal edema. Tenderness. Declines scrotal wraps. Earlier today had a nosebleed and heparin had to be held. Vitals/I&O/Wt Last Vital Signs Temp 98.1 F 09/22/24 15:47 Pulse 67 09/22/24 15:47 Resp 19 H 09/22/24 15:47 BP 108/66 09/22/24 15:47 Pulse Ox 97 09/22/24 15:47 O2 Del Method Nasal Cannula 09/22/24 15:47 O2 Flow Rate 3 09/22/24 14:00 FiO2 40 09/20/24 18:27 09/22/24 09/22/24 09/22/24 06:59 14:59 22:59 Intake Total 600 / 3804.5 1510 / 1510 Output Total 2901 / 2901 Balance 600 / 3804.5 -1391 / -1391 Weight last 48 hrs Weight 93.3 kg Weight 94.489 kg Weight 95.254 kg Physical Exam 2 Const: COMMON NORMALS: patient oriented x3 and alert GENERAL APPEARANCE: c ooperative ORIENTATION/CONSCIOUSNESS: Yes awake OTHER: NC HENMT: COMMON NORMALS: oropharynx normal Neck/C-Spine: COMMON NORMALS: no JVD Resp: COMMON NORMALS: normal respiratory effort and clear to auscultation bilaterally AUSCULTATION: clear to auscultation bilaterally Cardio: COMMON NORMALS: no JVD, regular rhythm, S1 normal heart sound present, S2 normal heart sound present and No murmurs present (Cardio) RHYTHM: regular rhythm HEART SOUNDS: S1 normal heart sound present and S2 normal heart sound present GI: COMMON NORMALS: Normal to inspection, nondistended, normoactive bowel sounds present, Soft to palpation and non-tender PALPATION: Yes Soft to palpation Extremity: COMMON NORMALS: no joint enlargement NARRATIVE EXTREMITY EXAM: Anasarca with severe scrotal edema Persistent lower extremity edema GENERAL: Yes edema OTHER: Without appreciable swelling of left knee, no erythema, no warmth compared to the right side. Neuro: COMMON NORMALS: patient oriented x3 and moves all extremities S ENSORIUM/ORIENTATION: Yes alert Skin: COMMON NORMALS: no rashes or lesions noted GENERAL SKIN EXAM: no rashes or lesions noted Data 09/22/24 05:00 09/22/24 05:00 Micro: Microbiology 09/19/24 13:25 Gram Stain - Final Peritoneal Fluid Anaerobic Culture - Preliminary Body Fluid Culture - Preliminary 09/19/24 13:25 Mycobacterial Smear - Preliminary Body Fluids - Peritoneal A&P Assessment and plan (1) Severe sepsis: (2) Epididymitis: (3) Acute on chronic heart failure with preserved ejection fraction (HFpEF): (4) Acute and chronic respiratory failure, unspecified whether with hypoxia or hypercapnia: (5) High anion gap metabolic acidosis: Plan Mal Gibbs is a 44 yo man w/ anuric ESRD on TTS HD via a L. AVF, hx of non-compliance, pulmonary hypertension, HTN, HLD, COPD, chronic hypoxic respiratory failure on 4L NC, who presented to the ED on 09/18/2024 with complaints of dyspnea and scrotal pain. He was admitted for CHF exacerbation, SVT and hypoglycemia. Transaminitis: Reviewed CMP, so far improving transaminitis, AST down to 794, ALT down to 401. Down from as high as 4550. T. bili is normal. Alk phos 283. CK normal. US liver, wwith no portal and hepatic veins for any thrombosis. He has not had abdominal pain. Reviewed hepatitis panel. Moderate to severe transaminase elevation, possible medication toxicity. With hypoglycemia, monitor for possible acute liver failure. Reassess mental status. Hold ceftriaxone and hydralazine which may cause hepatotoxicity. Discussed with nursing, briefcase sewer. Acutely decompensated liver cirrhosis on presentation with ascites, INR elevated higher than usual. Thrombocytopenia. Reviewed INR. With improvement to 1.67. Discussed with him regarding prior consideration of evaluation of candidacy for organ transplant, he states on last testicular swelling can improve and resolve he will not consider liver and/for kidney transplantation. #Acute on chronic HFpEF w/ mild mitral regurgitation. Continue hemodialysis. Reassess volume status. #Anasarca with severe scrotal edema: Declined scrotal wraps on discussion. Pending record request from [facility] including urology notes. He states he had been previously evaluated by urology at [facility]. He states that he was told that the testicle enlargement involved solid tissue per the urologist. Discussed with him on ultrasound imaging here he seemed to have edema. Consideration of scrotal wrap to shrink down the size, however, requesting records from [facility] to review urology assessment. He states that he also discussed with urology regarding surgical excision of the edematous scrotum due to persistent enlargement and pain, however, the surgeon did not think this was something they could offer. He will need to follow-up with urology. Discussed with nursing. Discussed with briefcase sewer. #Epididymitis. Continue ciprofloxacin. Received ceftriaxone which was held due to rapidly rising transaminitis. Noted improvement today AST down to 1628. Reassess transaminitis. Monitor for risk of C. difficile. SJS. Reviewed chlamydia/gonorrhea panel, negative. Continue ciprofloxacin for now. Monitor for risk of C. difficile. #Severe Sepsis: resolved. With possible epididymitis not excluded due to difficulty with visualization due to scrotal edema. Appears less likely SBP, culture reviewed, no growth. Reviewed blood culture, negative. Recent possible septic arthritis? He states that the effusion was drained and he received antibiotics, was not found to be a surgical candidate due to his comorbidities. Requesting records from [place]. Status post paracentesis, lab studies ordered. Follow-up. Continue empiric antibiotic coverage with ceftriaxone and vancomycin. - Possibly due to SBP, Epididymitis. Recently treated for septic arthritis? of left knee without appearance of flare or acute infection in the left knee. Thrombocytopenia: With improvement, although today about the same 93,000. Reviewed platelets, with improvement to 96,000. Haptoglobin nonsuggestive hemolysis. Peripheral smear pending. Repeat blood counts. Hold ceftriaxone, hydralazine. PPI. Possible medication effect. Possibly secondary to his viral illness. Epistaxis: Resolved. Heparin was held. Reviewed platelets, 93,000. Reassess blood counts. Continue dialysis. Entero-/rhinovirus infection. Continue isolation. Supportive measures. #Abdominal distention - Reviewed peritoneal fluid culture, without growth. Prior culture from 09/12 with Klebsiella pneumonia. Continue ciprofloxacin. Hypoglycemia: Cut down D10. Attempt to wean. Continue Accu-Cheks. #ESRD on HD: Reviewed nephrology note. #Hyperkalemia: Underwent hemodialysis. Resolved on recheck chemistry #High AGAP Metabolic acidosis -Resolved #HTN urgency: Blood pressure with improvement. - On Nicardipine drip and hydralazine prn. #Acute on chronic hypoxic hypercapneic respiratory failure -Improved on BiPAP. repeat ABG reviewed, with improvement. Weaned off BiPAP as tolerating. #COPD -Not in exacerbation. #DM2. Complicated by hypoglycemia and requiring dextrose infusion. - Monitor BG #SVT: no acute issues. He self converted almost immediately. Reassess chemistry. Monitor on telemetry. DVT ppx: subq heparin held due to epistaxis PDMP PDMP Reviewed: Not Reviewed Attestations 2 Medical Necessity Statement*: Continue admission for assessment management of anasarca, severe scrotal edema, hepatic decompepnsation, possible epididymitis, hypoglycemia, CHF, fluid overload in a gentleman with underlying ESRD. and High MDM includes amount and/or complexity of data reviewed/ordered [ previous or external records, resulted lab(s)/test(s), ordered lab(s)/test(s) and other healthcare professional discussion] and described risk of complication, morbidity or mortality of management as documented Diagnoses Severe sepsis A41.9; R65.20 Epididymitis N45.1 Acute on chronic heart failure with preserved ejection fraction (HFpEF) I50.33 Acute and chronic respiratory failure, unspecified whether with hypoxia or hypercapnia J96.20 High anion gap metabolic acidosis E87.29
[2024-09-22] MEDS: ciprofloxacin 400 MG/200 ML PREMIX 200 MG IV (17:39)
[2024-09-22 18:14] LABS: Glucose Point of Care 110 mg/dL (70-110)
[2024-09-22 21:43] LABS: Glucose Point of Care 93 mg/dL (70-110)
[2024-09-22] MEDS: vancomycin 500 MG in sodium chloride 0.9% (plus) 100 ML 200 MG IV (21:46)
[2024-09-22] MEDS: dextrose 10% 1,000 ML 30 ML IV (22:34)
[2024-09-23] VITALS (13 sets, daily range): BP systolic 109–130; BP diastolic 50–68; PULSE 62–83; RESP 14–22; TEMP 36.5–36.9; O2SAT 93–100
[2024-09-23] MEDS: ipratropium-albuterol 3 mL Neb INHALATION ×4 (01:04→20:05)
[2024-09-23 01:54] LABS: Glucose Point of Care 89 mg/dL (70-110)
[2024-09-23] MEDS: carvedilol 25 mg Tablet 37.5 MG PO ×2 (04:15→16:36)
[2024-09-23] MEDS: HYDROmorphone tab 2 MG TABLET PO ×4 (04:15→23:32)
[2024-09-23 05:58] LABS: Glucose Point of Care 88 mg/dL (70-110)
[2024-09-23 07:20] LABS: Basophils # 0.1 10^3/uL (0.0-0.1); Basophils % 1.4 %; Eosinophils # 0.8 10^3/uL (0.0-0.8); Eosinophils % 13.8 %; Hematocrit 29.8 % (37-53); Lymphocytes # 0.8 10^3/uL (0.8-4.8); Lymphocytes % 14.1 %; Mean Corpuscular HGB Conc 31.2 g/dL (30-55); Mean Corpuscular Hemoglobin 27.4 pg (27-33); Mean Corpuscular Volume 87.6 fl (82-101); Mean Platelet Volume 10.6 fL (7.4-10.4); Monocytes # 0.6 10^3/uL (0.2-0.9); Monocytes % 11.1 %; Neutrophils # 3.28 10^3/uL (1.8-7.7); Neutrophils % 58.7 %; Nucleated Red Blood Cells # 0.1 /100WBC; Nucleated Red Blood Cells % 0.9 %; Platelet Count 85 10^3/cmm (157-399); Red Cell Distribution Width 17.8 % (12.1-15.1); White Blood Count 5.59 10^3/uL (3.29-11.43)
[2024-09-23 07:38] LABS: Alanine Aminotransferase 282 U/L (0-41); Albumin Level 2.3 g/dL (3.5-5.2); Alkaline Phosphatase 331 U/L (40-130); Aspartate Amino Transferase 486 U/L (0-40); Blood Urea Nitrogen 33 mg/dL (6-20); Calcium 8.8 mg/dL (8.5-10.5); Carbon Dioxide 27 mmol/L (22-29); Chloride 94 mmol/L (98-107); Creatinine Clr Calc Pharmacy 20.4278; Globulin 3.7 g/dL (1.3-4.6); Glomerular Filtration Rate 11.2 mL/min (90-130); Glucose 78 mg/dL (65-115); Osmolality Calculated 276 mOsm/kg (285-295); Sodium 130 mmol/L (136-145); Total Bilirubin 0.5 mg/dL (0.15-1.2)
[2024-09-23 07:39] LABS: Magnesium 1.8 mg/dL (1.7-2.3)
[2024-09-23] MEDS: minoxidil 10 mg Tablet PO (07:56)
[2024-09-23 08:11] LABS: Anion Gap 14.1 (5-19); Potassium 5.1 mmol/L (3.5-5.1)
--- NOTE | 2024-09-23 10:07 | P.PN_ITS ---
Subjective 2 Subjective: s/p HD yesterday Medications: Reviewed: Yes Vitals/I&O/Wt Last Vital Signs Temp 98.1 F 09/23/24 07:38 Pulse 65 09/23/24 08:14 Resp 16 09/23/24 08:14 BP 110/60 09/23/24 07:38 Pulse Ox 97 09/23/24 08:14 O2 Del Method Nasal Cannula 09/23/24 08:14 O2 Flow Rate 4 09/23/24 08:14 FiO2 45 09/23/24 00:01 09/22/24 09/23/24 09/23/24 22:59 06:59 14:59 Intake Total 1694 / 3204 720 / 3924 240 / 240 Balance 1694 / 303 720 / 1023 240 / 240 Weight last 48 hrs Weight 90.265 kg Weight 93.3 kg Weight 94.489 kg Physical Exam 2 Narrative: awake , alert heent- nc/at, eomi neck supple, +JVP lungs dull bases and crackles heart regular abdomen + decreased ascites, + umbilical hernia, distended, +BS significant scrotal edema and tenderness extremities 2+ edema + left Arm AVG neuro-awake alert and appropriate following commands seen and examined w/ aide of a nurse using A/V equipment Data 09/24/24 02:56 09/24/24 02:56 Micro: Microbiology 09/19/24 13:25 Gram Stain - Final Peritoneal Fluid Anaerobic Culture - Preliminary Body Fluid Culture - Final A&P Assessment and plan (1) End stage renal disease on dialysis: 44 year old man 1. ESRD- volume overloaded and Htn-patient had hemodialysis and large-volume for liter paracentesis . HD tomorrow 2. fevers and recent paracentesis w/ klebsiella-patient had repeat paracentesis. 3. DM 4. anemia- has h/o high ferritin. check iron studies. 5.severe cachexia 6. recent echo last month EF 65%, no severe valvular disease 7. Blood pressure much improved with volume removed. 8. Scrotal ultrasound reviewed extensive scrotal edema with right epididymitis not excluded right testicle and epididymis not visualized due to significant edema. seen and examined w/ RN using A/ V equipment. pt consents o HD and telehealth visits Plan see above PDMP PDMP Reviewed: Not Reviewed Attestations 2 Medical Necessity Statement*: per [facility] Coding Level of Care Code Acute Code for Chg Fwd Diagnoses End stage renal disease on dialysis N18.6; Z99.2
[2024-09-23 10:33] LABS: Glucose Point of Care 86 mg/dL (70-110)
--- NOTE | 2024-09-23 14:18 | PC.SOCIAL ---
IMM Updated Updated pt on IMM. No questions voiced. Provided pt a copy. Initialed, dated, & timed a copy & placed in chart.
[2024-09-23 14:54] LABS: Glucose Point of Care 98 mg/dL (70-110)
[2024-09-23] MEDS: ciprofloxacin 400 MG/200 ML PREMIX 200 MG IV (17:17)
[2024-09-23] MEDS: cetylpyridinium Lozenge 1 EACH MUCOUS MEM (17:26)
[2024-09-23 18:10] LABS: Glucose Point of Care 105 mg/dL (70-110)
--- NOTE | 2024-09-23 18:13 | PM.PN ---
Subjective Subjective: Symptoms unimproved so far. Persistent anasarca and bothersome/painful scrotal edema. Vitals/I&O/Wt Last Vital Signs Temp 98.0 F 09/23/24 15:43 Pulse 67 09/23/24 15:43 Resp 16 09/23/24 15:43 BP 117/50 09/23/24 15:43 Pulse Ox 97 09/23/24 15:43 O2 Del Method Nasal Cannula 09/23/24 15:43 O2 Flow Rate 4 09/23/24 13:38 FiO2 45 09/23/24 00:01 09/23/24 09/23/24 09/23/24 06:59 14:59 22:59 Intake Total 720 / 3924 360 / 360 240 / 600 Balance 720 / 1023 360 / 360 240 / 600 Weight last 48 hrs Weight 90.265 kg Weight 93.3 kg Weight 94.489 kg Physical Exam Narrative: Sitting up in a chair. Const: COMMON NORMALS: patient oriented x3 and alert GENERAL APPEARANCE: cooperative ORIENTATION/CONSCIOUSNESS: Yes awake OTHER: NC HENMT: COMMON NORMALS: oropharynx normal Neck/C-Spine: COMMON NORMALS: no JVD Resp: COMMON NORMALS: normal respiratory effort and clear to auscultation bilaterally AUSCULTATION: clear to auscultation bilaterally Cardio: COMMON NORMALS: no JVD, regular rhythm, S1 normal heart sound present, S2 normal heart sound present and No murmurs present (Cardio) RHYTHM: regular rhythm HEART SOUNDS: S1 normal heart sound present and S2 normal heart sound present GI: COMMON NORMALS: Normal to inspection, nondistended, normoactive bowel sounds present, Soft to palpation and non-tender PALPATION: Yes Soft to palpation Extremity: COMMON NORMALS: no joint enlargement NARRATIVE EXTREMITY EXAM: Anasarca with severe scrotal edema Persistent lower extremity edema GENERAL: Yes edema OTHER: Without appreciable swelling of left knee, no erythema, no warmth compared to the right side. Neuro: COMMON NORMALS: patient oriented x3 and moves all extremities SENSORIUM/ORIENTATION: Yes alert Skin: COMMON NORMALS: no rashes or lesions noted GENERAL SKIN EXAM: no rashes or lesions noted Data 09/23/24 07:08 09/23/24 07:08 Micro: Microbiology 09/19/24 13:25 Gram Stain - Final Peritoneal Fluid Anaerobic Culture - Preliminary Body Fluid Culture - Final A&P Assessment and plan (1) Severe sepsis: (2) Epididymitis: (3) Acute on chronic heart failure with preserved ejection fraction (HFpEF): (4) Acute and chronic respiratory failure, unspecified whether with hypoxia or hypercapnia: (5) High anion gap metabolic acidosis: Anne-Marie Gibbs is a 44 yo man w/ anuric ESRD on TTS HD via a L. AVF, hx of non-compliance, pulmonary hypertension, HTN, HLD, COPD, chronic hypoxic respiratory failure on 4L NC, who presented to the ED on 09/18/2024 with complaints of dyspnea and scrotal pain. He was admitted for CHF exacerbation, SVT and hypoglycemia. #Acute on chronic HFpEF w/ mild mitral regurgitation. Continue increased frequency of hemodialysis for anasarca. Reassess volume status. Discussed with nursing. Discussed with disability case manager. #Anasarca with severe scrotal edema: Declined scrotal wraps on discussion. Pending record request from [facility] including urology notes. He states he had been previously evaluated by urology at [facility]. He states that he was told that the testicle enlargement involved solid tissue per the urologist. Discussed with him on ultrasound imaging here he seemed to have edema. Consideration of scrotal wrap to shrink down the size, however, requesting records from [facility] to review urology assessment. He states that he also discussed with urology regarding surgical excision of the edematous scrotum due to persistent enlargement and pain, however, the surgeon did not think this was something they could offer. He will need to follow-up with urology. Has been needing pain medication for symptoms. Having difficulty laying down flat. Transaminitis: Continue to improve. Reviewed CMP. Down from as high as 4550. T. bili is normal. Alk phos with increase up to 231. Suspect lagging behind the other parameters. Chemistry. CK normal. US liver, with no portal and hepatic veins for any thrombosis. He has not had abdominal pain. Reviewed hepatitis panel. Moderate to severe transaminase elevation, possible medication toxicity. With hypoglycemia, monitor for possible acute liver failure. Reassess mental status. Hold ceftriaxone and hydralazine which may cause hepatotoxicity. Acutely decompensated liver cirrhosis on presentation with ascites, INR elevated higher than usual. Thrombocytopenia. Reviewed INR. With improvement to 1.67. Discussed with him regarding prior consideration of evaluation of candidacy for organ transplant, he states on last testicular swelling can improve and resolve he will not consider liver and/for kidney transplantation. #Epididymitis. Continue ciprofloxacin. Received ceftriaxone initially which was held due to rapidly rising transaminitis. Noted improvement today AST down to 1628. Reassess transaminitis. Monitor for risk of C. difficile. SJS. Reviewed chlamydia/gonorrhea panel, negative. Continue ciprofloxacin for now. Monitor for risk of C. difficile. #Severe Sepsis: resolved. With possible epididymitis not excluded due to difficulty with visualization due to scrotal edema. Appears less likely SBP, culture reviewed, no growth. Reviewed blood culture, negative. Recent possible septic arthritis? He states that the effusion was drained and he received antibiotics, was not found to be a surgical candidate due to his comorbidities. Requesting records from [place]. Status post paracentesis, cultures without growth. Possibly due to SBP, Epididymitis. Thrombocytopenia: Reviewed platelets, with improvement to 83,000. Haptoglobin nonsuggestive hemolysis. Peripheral smear reviewed, unremarkable. Repeat blood counts. Hold ceftriaxone, hydralazine. PPI. Possible medication effect. Possibly secondary to his viral illness. Epistaxis: Mild epistaxis. Heparin was held. Mod thrombocytopenia. Reassess blood counts. Continue dialysis. Entero-/rhinovirus infection. Continue isolation. Supportive measures. #Abdominal distention - With liver cirrhosis, recurrent ascites. Status post paracentesis. Continue hemodialysis for anasarca. Hypoglycemia: Hypoglycemia has so far improved. Will try to hold D10. Reassess blood glucose. Continue Accu-Cheks. Regular diet. #ESRD on HD: Reviewed nephrology note. Continue additional dialysis. #Hyperkalemia: Improved with dialysis. Resolved on recheck chemistry #High anion gap metabolic acidosis -Resolved #HTN urgency: Blood pressure with improvement. #Acute on chronic hypoxic hypercapneic respiratory failure -Improved on BiPAP. Weaned off BiPAP #COPD -Not in exacerbation. #DM2. Complicated by hypoglycemia and requiring dextrose infusion. - Monitor BG #SVT: no acute issues. He self converted almost immediately. Reassess chemistry. Monitor on telemetry. DVT ppx: subq heparin held due to epistaxis PDMP PDMP Reviewed: Not Reviewed Attestations Medical Necessity Statement*: Continue admission for assessment management of anasarca, severe scrotal edema, hepatic decompepnsation, possible epididymitis, hypoglycemia, CHF, fluid overload in a gentleman with underlying ESRD. Diagnoses Severe sepsis A41.9; R65.20 Epididymitis N45.1 Acute on chronic heart failure with preserved ejection fraction (HFpEF) I50.33 Acute and chronic respiratory failure, unspecified whether with hypoxia or hypercapnia J96.20 High anion gap metabolic acidosis E87.29
--- NOTE | 2024-09-23 20:56 | PC.NURSE ---
D10 infusion turned off per orders reflected in patient MAR; 600 mL left in bag at time of discontinuation
[2024-09-23 22:01] LABS: Glucose Point of Care 92 mg/dL (70-110)
[2024-09-24] VITALS (13 sets, daily range): BP systolic 107–131; BP diastolic 58–74; PULSE 61–76; RESP 15–24; TEMP 35.9–36.8; O2SAT 98–100
[2024-09-24 02:04] LABS: Glucose Point of Care 86 mg/dL (70-110)
[2024-09-24] MEDS: ipratropium-albuterol 3 mL Neb INHALATION ×4 (02:44→20:22)
[2024-09-24 03:19] LABS: Basophils # 0.1 10^3/uL (0.0-0.1); Basophils % 1.6 %; Eosinophils # 0.8 10^3/uL (0.0-0.8); Lymphocytes # 0.7 10^3/uL (0.8-4.8); Lymphocytes % 14.2 %; Mean Corpuscular HGB Conc 31.7 g/dL (30-55); Mean Corpuscular Hemoglobin 27.6 pg (27-33); Mean Corpuscular Volume 87.1 fl (82-101); Mean Platelet Volume 12.4 fL (7.4-10.4); Monocytes # 0.7 10^3/uL (0.2-0.9); Monocytes % 12.6 %; Neutrophils # 2.87 10^3/uL (1.8-7.7); Neutrophils % 55.8 %; Nucleated Red Blood Cells % 0.6 %; Platelet Count 89 10^3/cmm (157-399); Red Blood Count 3.33 10^6/uL (3.85-5.65); White Blood Count 5.14 10^3/uL (3.29-11.43)
[2024-09-24 03:31] LABS: Alanine Aminotransferase 220 U/L (0-41); Albumin Level 2.4 g/dL (3.5-5.2); Alkaline Phosphatase 328 U/L (40-130); Blood Urea Nitrogen 39 mg/dL (6-20); Calcium 9.1 mg/dL (8.5-10.5); Carbon Dioxide 27 mmol/L (22-29); Chloride 94 mmol/L (98-107); Creatinine Clr Calc Pharmacy 18.1581; Globulin 3.3 g/dL (1.3-4.6); Glomerular Filtration Rate 9.8 mL/min (90-130); Glucose 81 mg/dL (65-115); Osmolality Calculated 278 mOsm/kg (285-295); Sodium 130 mmol/L (136-145); Total Bilirubin 0.4 mg/dL (0.15-1.2); Total Protein 5.7 g/dL (6.6-8.7)
[2024-09-24 03:34] LABS: Vancomycin Random 15.2 ug/mL (20.0-40.0)
[2024-09-24 03:35] LABS: Anion Gap 14.8 (5-19); Aspartate Amino Transferase 282 U/L (0-40); Potassium 5.8 mmol/L (3.5-5.1)
[2024-09-24] MEDS: carvedilol 25 mg Tablet 37.5 MG PO ×2 (04:01→18:37)
[2024-09-24] MEDS: HYDROmorphone tab 2 MG TABLET PO (06:13)
[2024-09-24 06:17] LABS: Glucose Point of Care 81 mg/dL (70-110)
[2024-09-24] MEDS: minoxidil 10 mg Tablet PO (09:04)
[2024-09-24 10:13] LABS: Glucose Point of Care 90 mg/dL (70-110)
[2024-09-24] MEDS: heparin, porcine 1,000 unit/mL INJ 10 mL 1000 UNIT IV (10:15)
[2024-09-24] MEDS: benzonatate 100 mg Capsule PO ×2 (12:19→19:46)
--- NOTE | 2024-09-24 13:04 | P.PN_ITS ---
Subjective 2 Subjective: getting hd Medications: Reviewed: Yes Vitals/I&O/Wt Last Vital Signs Temp 97.7 F 09/24/24 11:41 Pulse 70 09/24/24 12:42 Resp 24 H 09/24/24 12:42 BP 129/69 09/24/24 11:41 Pulse Ox 100 09/24/24 12:42 O2 Del Method Nasal Cannula 09/24/24 12:42 O2 Flow Rate 4 09/24/24 12:42 FiO2 45 09/23/24 00:01 09/23/24 09/24/24 09/24/24 22:59 06:59 14:59 Intake Total 440 / 800 360 / 360 Balance 440 / 800 360 / 360 Weight last 48 hrs Weight 94.03 kg Weight 90.265 kg Weight 93.3 kg Physical Exam 2 Narrative: awake , alert heent- nc/at, eomi neck supple, +JVP lungs dull bases and crackles heart regular abdomen + decreased ascites, + umbilical hernia, distended, +BS significant scrotal edema and tenderness extremities 2+ edema + left Arm AVG neuro-awake alert and appropriate following commands seen and examined w/ aide of a nurse using A/V equipment Data 09/24/24 02:56 09/24/24 02:56 Micro: Microbiology 09/19/24 13:25 Gram Stain - Final Peritoneal Fluid Anaerobic Culture - Preliminary Body Fluid Culture - Final 09/19/24 00:40 Blood Culture - Final Blood NO GROWTH AFTER 5 DAYS 09/19/24 00:38 Blood Culture - Final Blood NO GROWTH AFTER 5 DAYS A&P Assessment and plan (1) End stage renal disease on dialysis: 44 year old man 1. ESRD- volume overloaded and Htn-patient had hemodialysis and large-volume for liter paracentesis . HD today 2. fevers and recent paracentesis w/ klebsiella-patient had repeat paracentesis. 3. DM 4. anemia- has h/o high ferritin. check iron studies. 5.severe cachexia 6. recent echo last month EF 65%, no severe valvular disease 7. Blood pressure much improved with volume removed. 8. Scrotal ultrasound reviewed extensive scrotal edema with right epididymitis not excluded right testicle and epididymis not visualized due to significant edema. seen and examined w/ RN using A/ V equipment. pt consents o HD and telehealth visits Plan see above PDMP PDMP Reviewed: Not Reviewed Attestations 2 Medical Necessity Statement*: per medicine Coding Level of Care Code Acute Code for Chg Fwd Diagnoses End stage renal disease on dialysis N18.6; Z99.2
--- NOTE | 2024-09-24 13:53 | P.PN_ITS ---
Subjective 2 Subjective: Patient was seen this morning, complains of shortness of breath, fluid overload, edema, scrotal edema Vitals/I&O/Wt Last Vital Signs Temp 97.7 F 09/24/24 11:41 Pulse 70 09/24/24 12:42 Resp 24 H 09/24/24 12:42 BP 129/69 09/24/24 11:41 Pulse Ox 100 09/24/24 12:42 O2 Del Method Nasal Cannula 09/24/24 12:42 O2 Flow Rate 4 09/24/24 12:42 FiO2 45 09/23/24 00:01 09/23/24 09/24/24 09/24/24 22:59 06:59 14:59 Intake Total 440 / 800 600 / 600 Balance 440 / 800 600 / 600 Weight last 48 hrs Weight 94.03 kg Weight 90.265 kg Physical Exam 2 Const: COMMON NORMALS: no acute distress and patient oriented x3 Resp: COMMON NORMALS: normal respiratory effort, No retractions and No use of accessory muscles AUSCULTATION: crackles and wheezes Cardio: COMMON NORMALS: regular rate, regular rhythm, S1 normal heart sound present and S2 normal heart sound present RATE: regular rate RHYTHM: r egular rhythm HEART SOUNDS: S1 normal heart sound present and S2 normal heart sound present GI: COMMON NORMALS: Normal to inspection, nondistended, normoactive bowel sounds present and non-tender OTHER: Umbilical hernia in place Extremity: NARRATIVE EXTREMITY EXAM: 2+ pitting edema, anasarca Neuro: COMMON NORMALS: patient oriented x3 Psych: COMMON NORMALS: mental status grossly normal Data 09/24/24 02:56 09/24/24 02:56 Micro: Microbiology 09/19/24 13:25 Gram Stain - Final Peritoneal Fluid Anaerobic Culture - Preliminary Body Fluid Culture - Final 09/19/24 00:40 Blood Culture - Final Blood NO GROWTH AFTER 5 DAYS 09/19/24 00:38 Blood Culture - Final Blood NO GROWTH AFTER 5 DAYS A&P Assessment and plan (1) Severe sepsis: (2) Epididymitis: (3) Acute on chronic heart failure with preserved ejection fraction (HFpEF): (4) Acute and chronic respiratory failure, unspecified whether with hypoxia or hypercapnia: (5) High anion gap metabolic acidosis: Plan Mal Gibbs is a 44 yo man w/ anuric ESRD on TTS HD via a L. AVF, hx of non-compliance, pulmonary hypertension, HTN, HLD, COPD, chronic hypoxic respiratory failure on 4L NC, who presented to the ED on 09/18/2024 with complaints of dyspnea and scrotal pain. He was admitted for CHF exacerbation, SVT and hypoglycemia. #Acute on chronic HFpEF w/ mild mitral regurgitation, -fluid overload -anasarca - Continue hemodialysis #Anasarca with severe scrotal edema: -Declined scrotal wraps on discussion -record request from [facility] including urology notes. #Transaminitis: - Continue to improve -Will monitor -CPK within normal limits -Ultrasound liver no acute findings #Acutely decompensated liver cirrhosis on presentation with ascites, INR , Thrombocytopenia - Monitor #Epididymitis - Continue ciprofloxacin #Severe Sepsis: resolved. # History of spontaneous bacterial peritonitis, peritoneal study in the past 2024 showing Klebsiella pneumonia - Continue ciprofloxacin Thrombocytopenia: - Monitor Epistaxis: Resolved Entero-/rhinovirus infection. Monitor #Abdominal distention -will consider paracentesis Hypoglycemia: Monitor #ESRD on HD: On dialysis #Hyperkalemia: On dialysis #High anion gap metabolic acidosis -Resolved #HTN urgency: Blood pressure with improvement. #Acute on chronic hypoxic hypercapneic respiratory failure Off BiPAP #COPD -Not in exacerbation. #DM2. Complicated by hypoglycemia and requiring dextrose infusion. - Monitor BG #SVT: Telemetry monitoring DVT ppx: subq heparin held due to epistaxis PDMP PDMP Reviewed: Last Reviewed 09/24/24 08:37 by Tunde Umana MD Attestations 2 Medical Necessity Statement*: Patient requires hospitalization for acute fluid overload, requiring dialysis Diagnoses Severe sepsis A41.9; R65.20 Epididymitis N45.1 Acute on chronic heart failure with preserved ejection fraction (HFpEF) I50.33 Acute and chronic respiratory failure, unspecified whether with hypoxia or hypercapnia J96.20 High anion gap metabolic acidosis E87.29
[2024-09-24] MEDS: HYDROmorphone tab 2 MG TABLET 1 MG PO ×2 (14:24→22:31)
[2024-09-24 14:26] LABS: Glucose Point of Care 93 mg/dL (70-110)
[2024-09-24 17:19] LABS: Amylase, Peritoneal Fluid <10 U/L
[2024-09-24 18:00] LABS: Glucose Point of Care 98 mg/dL (70-110)
[2024-09-24] MEDS: ciprofloxacin 400 MG/200 ML PREMIX 200 MG IV (18:36)
[2024-09-24] MEDS: vancomycin 500 MG in sodium chloride 0.9% (plus) 100 ML 200 MG IV (20:39)
[2024-09-24 22:10] LABS: Glucose Point of Care 91 mg/dL (70-110)
[2024-09-25] VITALS (14 sets, daily range): BP systolic 107–148; BP diastolic 58–85; PULSE 61–77; RESP 12–20; TEMP 36.5–36.8; O2SAT 96–100
[2024-09-25] MEDS: ipratropium-albuterol 3 mL Neb INHALATION ×4 (01:10→23:46)
[2024-09-25 02:18] LABS: Glucose Point of Care 88 mg/dL (70-110)
[2024-09-25 04:04] LABS: Basophils % 0.9 %; Eosinophils # 0.5 10^3/uL (0.0-0.8); Eosinophils % 10.3 %; Hematocrit 29.6 % (37-53); Lymphocytes # 0.7 10^3/uL (0.8-4.8); Lymphocytes % 15.4 %; Mean Corpuscular HGB Conc 30.7 g/dL (30-55); Mean Corpuscular Hemoglobin 27.4 pg (27-33); Mean Corpuscular Volume 89.2 fl (82-101); Mean Platelet Volume 11.1 fL (7.4-10.4); Monocytes # 0.7 10^3/uL (0.2-0.9); Monocytes % 14.6 %; Neutrophils # 2.73 10^3/uL (1.8-7.7); Neutrophils % 58.4 %; Nucleated Red Blood Cells % 0 %; Platelet Count 76 10^3/cmm (157-399); Red Blood Count 3.32 10^6/uL (3.85-5.65); Red Cell Distribution Width 18.6 % (12.1-15.1); White Blood Count 4.67 10^3/uL (3.29-11.43)
[2024-09-25 04:37] LABS: Alanine Aminotransferase 159 U/L (0-41); Albumin Level 2.3 g/dL (3.5-5.2); Alkaline Phosphatase 294 U/L (40-130); Anion Gap 14.5 (5-19); Aspartate Amino Transferase 146 U/L (0-40); Blood Urea Nitrogen 35 mg/dL (6-20); Calcium 9.4 mg/dL (8.5-10.5); Carbon Dioxide 29 mmol/L (22-29); Chloride 96 mmol/L (98-107); Creatinine Clr Calc Pharmacy 21.7829; Globulin 3.8 g/dL (1.3-4.6); Glucose 75 mg/dL (65-115); Magnesium 1.7 mg/dL (1.7-2.3); Osmolality Calculated 285 mOsm/kg (285-295); Phosphorus 4.4 mg/dL (2.5-4.5); Potassium 5.5 mmol/L (3.5-5.1); Sodium 134 mmol/L (136-145); Total Bilirubin 0.4 mg/dL (0.15-1.2); Total Protein 6.1 g/dL (6.6-8.7)
[2024-09-25] MEDS: carvedilol 25 mg Tablet 37.5 MG PO ×2 (05:29→21:10)
[2024-09-25 06:35] LABS: Glucose Point of Care 94 mg/dL (70-110)
[2024-09-25] MEDS: minoxidil 10 mg Tablet PO (09:08)
[2024-09-25] MEDS: HYDROmorphone tab 2 MG TABLET 1 MG PO ×2 (09:11→17:07)
[2024-09-25] MEDS: sodium polystyrene sulfonate 15 gm/60 mL Btl PO (11:07)
[2024-09-25] MEDS: insulin regular-human 100 units/1 mL 10 UNIT IVP (11:07)
[2024-09-25] MEDS: dextrose 10% 125 ML 750 ML IV (11:07)
[2024-09-25 11:15] LABS: Glucose Point of Care 87 mg/dL (70-110)
--- NOTE | 2024-09-25 11:28 | P.DS_ITS ---
Discharge Providers Date of Admission: 09/19/24 01:23 Date of Discharge: September 25, 2024 Attending Provider at Admission: Thi Nuno MD Attending Provider at Discharge: Tunde Umana MD Primary Care Provider: Delio Salazar MD Diagnoses at Discharge Discharge Diagnosis (1) Severe sepsis: Status: Acute (2) Epididymitis: Status: Inactive Permanent problem details: 06/2022 (3) Acute on chronic heart failure with preserved ejection fraction (HFpEF): Status: Acute (4) Acute and chronic respiratory failure, unspecified whether with hypoxia or hypercapnia: Status: Acute (5) High anion gap metabolic acidosis: Status: Acute Reason for Visit Reason for Visit: sob Hospital Course Hospital Course This is a 44-year-old male with a past medical history of end-stage renal disease on hemodialysis, left arm AV fistula, noncompliance, pulm hypertension, hypertension, hyperlipidemia, COPD chronic hypoxic respiratory failure 4 L, who presents to [facility] for shortness of breath and scrotal swelling For patient's acute hypoxic respiratory failure secondary to fluid overload, requiring ICU admission, BiPAP therapy, urgent and inpatient dialysis. Patient on discharge remains volume overloaded, has 2+ pitting edema, crackles in lung cantu, is on his home 4 L, but is adamant about going home, I have strongly recommended for him to stay as inpatient received further courses of inpatient dialysis to help with his fluid overload and respiratory failure. I had a detailed discussion with patient about morbidity and mortality associated with fluid overload, respiratory failure, and complications associated, and his history of noncompliance. Patient voiced understanding, all questions answered, declined further inpatient admission and wants to go home. Discussed with patient I have a high concern of his morbidity or mortality when he goes home, high risk of rehospitalization, high risk of complications associated, he voiced understanding, all questions answered declined further inpatient admission Patient on admission was found to have hypoglycemia, improved with D10, blood sugars have been reasonable during this hospitalization History of SVT in the emergency room, converted to normal sinus rhythm before adenosine to be given, no recurrent episodes of SVT during his hospitalization Patient has a history of spontaneous bacterial peritonitis, with ascites cultur es growing Klebsiella pneumonia, during his hospitalization he had a recurrent paracentesis, so far repeat paracentesis cultures have been negative. As per the records, patient had a paracentesis done 09/12/2024 showing heavy growth of Klebsiella pneumonia, this was done as outpatient, and I cannot see any records of him being treated for this as outpatient. Nonetheless as inpatient treated with IV antibiotics as inpatient, will be discharged on ciprofloxacin 250 mg daily for SBP prophylaxis as outpatient In terms for liver cirrhosis - Has evidence of anemia, thrombocytopenia, transaminitis - Liver ultrasound shows hepatomegaly with cirrhotic liver morphology - Patient referral has been made to [facility] in [place] Patient is hospitalization was complicated by recurrent abdominal ascites, he does have ascites on 09/25/2024 I have strongly recommended for him to stay as inpatient so he can have a paracentesis tomorrow however he declines, he has one set up for Thursday of this week Patient's hospitalization was complicated by transaminitis, AST is as high as 4550, ALT as high as 780, perhaps a component of SBP, perhaps adverse reaction to ceftriaxone? Nonetheless LFTs have improved on discharge which need to be monitored as outpatient Patient's hospitalization was complicated with concerns for epididymitis, scrotal pain, will be discharged on ciprofloxacin as above For patient's severe scrotal edema, patient has declined conservative interventions including scrotal wraps, elevation, according to patient he has been seen by urologist in [place], recommendation of medical management, continues to have scrotal edema during his hospitalization. Will have him follow-up with urology as outpatient, discharged on a short course of oxycodone to be used sparingly for pain, do not drive or operate machinery or drink while taking medication On discharge I strongly discussed with patient about compliance, compliance with dialysis, fluid restrictions, compliance with antibiotics, following up with GI in [place], urology in [place]. Discussed morbidity and mortality associated with his acute and chronic medical problems, he voiced understanding, all questions answered Physical Exam Const: COMMON NORMALS: no acute distress and patient oriented x3 Resp: COMMON NORMALS: normal respiratory effort, No retractions and No use of accessory muscles AUSCULTATION: crackles and wheezes Cardio: COMMON NORMALS: regular rate, regular rhythm, S1 normal heart sound present and S2 normal heart sound present RATE: regular rate RHYTHM: regular rhythm HEART SOUNDS: S1 normal heart sound present and S2 normal heart sound present GI: OTHER: Abdomen soft, distended, fluid wave present, umbilical hernia reducible found, easily prolapsed Extremity: OTHER: 2+ pitting edema Neuro: COMMON NORMALS: patient oriented x3 Psych: COMMON NORMALS: mental status grossly normal Discharge Data Studies Completed and Pending Completed Studies During Hospitalization Category Date Time Status XR chest 1V portable [id number] Stat Exams 09/18/24 18:02 Completed Cytology [PTH] Routine Pth 09/19/24 06:38 [place] liver [id number] Routine Ultrasound 09/20/24 16:38 [place]d w [id number] Urgent Ultrasound 09/19/24 06:39 Completed US scrotum [id number] Routine Ultrasound 09/19/24 07:48 Completed Pending at discharge Category Date Time Status Anaerobic Culture Routine Lab 09/19/24 13:25 Results BMP [Basic Metabolic Panel] Routine Lab 09/25/24 13:00 Ordered Body Fluid Culture & GS Routine Lab 09/19/24 13:25 Results Chlamydia / Gonorrhea OZH Routine Lab 09/19/24 16:36 Uncollected Complete Blood Count w/Auto AM LABS Lab 09/26/24 04:00 Ordered Complete Blood Count w/Auto AM LABS Lab 09/27/24 04:00 Ordered Comprehensive Metabolic Panel AM LABS Lab 09/26/24 04:00 Ordered Comprehensive Metabolic Panel AM LABS Lab 09/27/24 04:00 Ordered Magnesium AM LABS Lab 09/26/24 04:00 Ordered Magnesium AM LABS Lab 09/27/24 04:00 Ordered Mycobacteria, Culture w/Fluor Routine Lab 09/19/24 13:25 Results Phosphorus AM LABS Lab 09/26/24 04:00 Ordered Phosphorus AM LABS Lab 09/27/24 04:00 Ordered Vancomycin Random Routine Lab 09/25/24 22:00 Ordered Radiology Impressions Chest X-Ray 09/18/24 18:02 IMPRESSION: Similar mild cardiomegaly. No acute findings. Paracentesis Ultrasound 09/19/24 06:39 IMPRESSION: Uncomplicated paracentesis yielding 4000 ml of peritoneal fluid. Scrotum Ultrasound 09/19/24 07:48 IMPRESSION: 1. Extensive scrotal edema could be due to cellulitis or acute idiopathic scrotal edema. Right epididymitis not excluded which can also be a cause of an acute scrotum. 2. Right testicle and epididymis not visualized due to extensive scrotal edema. Liver Ultrasound 09/20/24 16:38 IMPRESSION: 1. Limited exam due to large ascites. 2. Hepatomegaly with cirrhotic liver morphology. 3. Main portal vein and visualized hepatic veins are patent. 4. Significant gallbladder wall thickening without cholelithiasis. Findings are likely reactive due to extensive ascites. If there is clinical concern for acute or chronic cholecystitis further evaluation with HIDA scan might be helpful. Laboratory Results WBC 4.67 10^3/uL (3.29-11.43) 09/25/24 03: RBC 3.32 10^6/uL (3.85-5.65) L 09/25/24 03: Hgb 9.10 g/dL (11.27-16.99) L 09/25/24 03: Hct 29.6 % (37-53) L 09/25/24 03: MCV 89.2 fl (82-101) 09/25/24 03: MCH 27.4 pg (27-33) 09/25/24 03: MCHC 30.7 g/dL (30-55) 09/25/24 03: RDW 18.6 % (12.1-15.1) H 09/25/24 03: Plt Count 76 10^3/cmm (157-399) L 09/25/24 03: MPV 11.1 fL (7.4-10.4) H 09/25/24 03: Neut % (Auto) 58.4 % 09/25/24 03: Lymph % (Auto) 15.4 % 09/25/24 03:29 [place] % (Auto) 14.6 % 09/25/24 03: Eos % (Auto) 10.3 % 09/25/24 03: Baso % (Auto) 0.9 % 09/25/24 03: Neut # (Auto) 2.73 10^3/uL (1.8-7.7) 09/25/24 03: Lymph # (Auto) 0.7 10^3/uL (0.8-4.8) L 09/25/24 03: [place] # (Auto) 0.7 10^3/uL (0.2-0.9) 09/25/24 03: Eos # (Auto) 0.5 10^3/uL (0.0-0.8) 09/25/24 03:29 Baso # (Auto) 0.0 10^3/uL (0.0-0.1) 09/25/24 03:29 Nucleated RBC % (auto) 0 % 09/25/24 03:29 Nucleated RBCs # 0.0 /100WBC 09/25/24 03:29 Differential Comment Yes 09/19/24 13:25 Peripher Smr Path Cons Sent for review 09/20/24 04:48 Haptoglobin 248.0 mg/L (30-200) H 09/20/24 04:48 PT 20.80 SECONDS (12.1-14.9) H 09/21/24 05:33 INR 1.67 (0.8-1.2) H 09/21/24 05:33 APTT 49.9 SECONDS (23.9-36.7) H 09/19/24 06:44 Specimen Type Arterial 09/19/24 12:00 Sample Site Radial, right 09/19/24 12:00 ABG pH 7.46 (7.35-7.45) H 09/19/24 12:00 ABG pCO2 41.9 mmHg (35-45) 09/19/24 12:00 ABG pO2 129.0 mmHg (80.0-100.0) H 09/19/24 12:00 ABG PO2/FiO2 Ratio 258 09/19/24 12:00 ABG HCO3 29.4 mmol/L (22-26) H 09/19/24 12:00 ABG O2 Saturation > 99.1 09/19/24 12:00 ABG Base Excess 5.0 mmol/L (-2.0-2.0) H 09/19/24 12:00 Alexei Test Pos 09/19/24 12:00 A-a O2 Gradient 22.3 mmHg (5-10) H 09/19/24 12:00 Hematocrit 30.9 % (42-52) L 09/19/24 12:00 Hgb O2 Saturation 97.9 % (95-100) 09/19/24 12:00 Carboxyhemoglobin 0.8 %THgb (0.4-20.1) 09/19/24 12:00 Methemoglobin 0.6 % (0.4-1.5) 09/19/24 12:00 Total Hemoglobin 10.1 g/dL (14-18) L 09/19/24 12:00 Sodium 138.0 mmol/L (131-143) 09/19/24 12:00 Potassium 4.0 mmol/L (3.5-5.0) 09/19/24 12:00 Glucose 62.0 mg/dL (70-115) L 09/19/24 12:00 Ionized Calcium 1.2 mmol/L (1.1-1.4) 09/19/24 12:00 O2 Delivery Device Bipap 09/19/24 12:00 O2 Liters/Min 15.0 % 09/19/24 03:57 FiO2 50.0 % 09/19/24 12:00 Soccer Ball As[employer]er ID Gd 09/19/24 12:00 Sodium 134 mmol/L (136-145) L 09/25/24 03:29 Potassium 5.5 mmol/L (3.5-5.1) H 09/25/24 03:29 Chloride 96 mmol/L (98-107) L 09/25/24 03:29 Carbon Dioxide 29 mmol/L (22-29) 09/25/24 03:29 Anion Gap 14.5 (5-19) 09/25/24 03:29 BUN 35 mg/dL (6-20) H 09/25/24 03:29 Creatinine 5.3 mg/dL (0.7-1.2) H 09/25/24 03:29 GFR Calculation 12.0 mL/min (90-130) L 09/25/24 03:29 Glucose 75 mg/dL (65-115) 09/25/24 03:29 POC Glucose 87 mg/dL (70-110) 09/25/24 11:03 Calculated Osmolality 285 mOsm/kg (285-295) 09/25/24 03:29 Lactate 3.2 mmol/L (0.5-2.2) H 09/19/24 06:44 Calcium 9.4 mg/dL (8.5-10.5) 09/25/24 03:29 Phosphorus 4.4 mg/dL (2.5-4.5) 09/25/24 03:29 Magnesium 1.7 mg/dL (1.7-2.3) 09/25/24 03:29 Total Bilirubin 0.4 mg/dL (0.15-1.2) 09/25/24 03:29 AST 146 U/L (0-40) H 09/25/24 03:29 ALT 159 U/L (0-41) H 09/25/24 03:29 Alkaline Phosphatase 294 U/L (40-130) H 09/25/24 03:29 Lactate Dehydrogenase 1765 U/L (135-225) H 09/20/24 04:48 Creatine Kinase 159 U/L (39-308) 09/20/24 04:48 Troponin T Baseline 178 ng/L (0-15) H* 09/19/24 00:38 Troponin T 120 Minute 200.2 ng/L (0-15) H 09/19/24 02:23 Delta Troponin T 22.2 ABS# (0-10) H* 09/19/24 02:23 Troponin T Hi Sens 6Hr 268.2 ng/L (0-15) H 09/19/24 06:44 Troponin T Hi Sens 6Hr Delta 90.2 ng/L (0-12) H* 09/19/24 06:44 NT-Pro-B Natriuret Pep > 19715 pg/mL (0-125) H 09/18/24 18:19 Total Protein 6.1 g/dL (6.6-8.7) L 09/25/24 03:29 Albumin 2.3 g/dL (3.5-5.2) L 09/25/24 03:29 Globulin 3.8 g/dL (1.3-4.6) 09/25/24 03:29 Procalcitonin 24.29 ng/mL (0-0.5) H 09/19/24 06:44 Fluid Color Yellow 09/19/24 13:25 Fluid Appearance Clear 09/19/24 13:25 Fluid Specific Grav 1.022 09/19/24 13:25 Fluid pH 7.0 09/19/24 13:25 Fluid WBC 4 /uL 09/19/24 13:25 Fluid RBC 0 10^3/uL 09/19/24 13:25 Fld Polynuclear WBCs # 0.001 09/19/24 13:25 Fld Polynuclear WBCs % 25.000 % 09/19/24 13:25 Fl Mononucl WBCs #(Auto) 0.003 09/19/24 13:25 Fl Mononuclear % Auto 75.000 % 09/19/24 13:25 Fld Crystal Laterality Not Reportable 09/19/24 13:25 Fluid Glucose 47.0 mg/dL 09/19/24 13:25 Fluid Total Protein 3.1 g/dL 09/19/24 13:25 Fluid Albumin 1.3 g/dL 09/19/24 13:25 Fluid LDH 111 U/L 09/19/24 13:25 Fluid Alk Phosphatase 37 IU/L 09/19/24 13:25 Fluid Cholesterol 36 mg/dL (0-200) 09/19/24 13:25 Fluid Triglycerides 30 mg/dL (0-150) 09/19/24 13:25 Fluid Uric Acid 5 mg/dL 09/19/24 13:25 Peritoneal Amylase <10 U/L 09/19/24 13:25 Random Vancomycin 15.2 ug/mL (20.0-40.0) L 09/24/24 02:56 Adenovirus (PCR) Not detected (NOT DETECT) 09/19/24 04:45 C. pneumoniae DNA (PCR) Not detected (NOT DETECT) 09/19/24 04:45 Coronavirus 229E (PCR) Not detected (NOT DETECT) 09/19/24 04:45 Hep Bs Antigen Non-reactive (Nonreactive) 09/19/24 06:44 Hep Bs Antibody 92.7 (11.5-1000) 09/19/24 06:44 Hepatitis C Antibody Non-reactive (Nonreactive) 09/19/24 06:44 Human Metapneumovir PCR Not detected (NOT DETECT) 09/19/24 04:45 Influenza A (H1) PCR Not detected (NOT DETECT) 09/19/24 04:45 Influ A (H1/09) PCR Not detected (NOT DETECT) 09/19/24 04:45 Influenza A (H3) PCR Not detected (NOT DETECT) 09/19/24 04:45 Influenza Type A (PCR) Not detected (NOT DETECT) 09/19/24 04:45 Influenza Type B (PCR) Not detected (NOT DETECT) 09/19/24 04:45 M. pneumoniae (PCR) Not detected (NOT DETECT) 09/19/24 04:45 Parainfluenza 1 (PCR) Not detected (NOT DETECT) 09/19/24 04:45 Parainfluenza 2 (PCR) Not detected (NOT DETECT) 09/19/24 04:45 Parainfluenza 3 (PCR) Not detected (NOT DETECT) 09/19/24 04:45 Parainfluenza 4 (PCR) Not detected (NOT DETECT) 09/19/24 04:45 RSV Type A (PCR) Not detected (NOT DETECT) 09/19/24 04:45 RSV Type B (PCR) Not detected (NOT DETECT) 09/19/24 04:45 Entero/Rhino (PCR) Detected (NOT DETECT) A 09/19/24 04:45 SARS-CoV-2 (PCR) Not detected (NOT DETECT) 09/19/24 04:45 Vitals Last Vital Signs Temp 98.1 F 09/25/24 09:18 Pulse 65 09/25/24 09:18 Resp 19 H 09/25/24 09:18 BP 148/85 09/25/24 09:18 Pulse Ox 96 09/25/24 09:18 O2 Del Method Nasal Cannula 09/25/24 09:18 O2 Flow Rate 4 09/25/24 09:10 FiO2 45 09/25/24 01:10 Discharge Plan Discharge Patient Disposition: Home Condition: Stable Prescriptions: New oxycodone 5 mg tablet 5 mg PO Q12H PRN (Reason: pain) 3 Days Qty: 6 0RF ciprofloxacin HCl 250 mg tablet 250 mg PO DAILY 30 Days Qty: 30 0RF Continued ferric citrate [Auryxia] 210 mg iron Tablet See Rx Instructions .ROUTE .COMPLEX Rx Instructions: Take 420 mg (2 tablets) by mouth three times a day and 210mg (1 tablet) with snacks. aspirin 81 mg tablet,delayed release (DR/EC) 81 mg PO BEDTIME Rx Instructions: Wednesdays RenaPlex-D 800 mcg-12.5 mg -2,000 unit tablet 1 tab PO QAM carvedilol 25 mg tablet 37.5 mg PO Q12H minoxidil 2.5 mg tablet 10 mg PO TID sevelamer carbonate 800 mg tablet 1,600 mg PO TID albuterol sulfate 90 mcg/actuation HFA aerosol inhaler 1 puff INHALATION Q6H PRN (Reason: Shortness Of Breath) Incruse Ellipta 62.5 mcg/actuation blister with device 1 inh INHALATION DAILY Discontinued hydralazine 100 mg tablet 100 mg PO Q8H sulfamethoxazole-trimethoprim 400-80 mg tablet See Rx Instructions .ROUTE .COMPLEX Rx Instructions: TAKE 1 TABLET BY MOUTH ON THURSDAY, THURSDAY AND THURSDAY. hydromorphone 2 mg tablet 2 mg PO Q4H PRN (Reason: Pain) Discharge Orders: Discharge Order (Routine); Ordered 09/25/24 Ordered By: Tunde Umana Referrals: Jerry Park MD [Referring, Internal Medicine] - 1 month Referral Note: We have faxed your infromation to Dr. Park's clinic of the need for a follow-up appointment to be scheduled. If you have not heard from them within the next 2 business days, please call them directly. Delio Salazar MD [Primary Care Provider, [facility]] - 7-10 days Referral Note: You will need to contact your primary care provider tomorrow to make a hospital discharge appointment in 7-10 days. Discharge Diet: Cardiac Discharge Activity: Resume usual activity Patient Instructions: Ciprofloxacin (By mouth), Oxycodone, Rapid Release (By mouth), Ascites (GEN), Acute Respiratory Failure (GEN), Opioid Safety Activity Restrictions/Additional Instructions: -PLEASE FOLLOW UP WITH DIALYSIS -FOLLOW UP WITH UROLOGY -Outpatient paracentesis ThursdaySeptember 27 at 12:30 -Please use oxycodone sparingly, do not drive or operate machinery or drink while taking medication or use with any other controlled substances Discharge Attestations Time Spent in Discharge Care*: greater than 30 min Status at Discharge: Cognitive status at discharge: cognitively intact , Behavioral status at discharge: cooperative , Quality Metrics Clinical Quality Measures [ No reported AMI, CVA or VTE this stay] Coding Level of Care Code 03517 Total time (in minutes) for Discharge: 45 Diagnoses Severe sepsis A41.9; R65.20 Epididymitis N45.1 Acute on chronic heart failure with preserved ejection fraction (HFpEF) I50.33 Acute and chronic respiratory failure, unspecified whether with hypoxia or hypercapnia J96.20 High anion gap metabolic acidosis E87.29
[2024-09-25 13:29] LABS: Anion Gap 14.6 (5-19); Blood Urea Nitrogen 37 mg/dL (6-20); Calcium 9.7 mg/dL (8.5-10.5); Carbon Dioxide 28 mmol/L (22-29); Chloride 95 mmol/L (98-107); Creatinine Clr Calc Pharmacy 20.3338; Osmolality Calculated 279 mOsm/kg (285-295); Potassium 5.6 mmol/L (3.5-5.1); Sodium 132 mmol/L (136-145)
[2024-09-25 13:31] LABS: Glucose 39 mg/dL (65-115)
[2024-09-25 13:38] LABS: Glucose Point of Care 64 mg/dL (70-110)
[2024-09-25] MEDS: dextrose 10% 250 ML 1000 ML IV (13:49)
--- NOTE | 2024-09-25 14:52 | P.PN_ITS ---
Subjective 2 Subjective: No new complaints, Medications: Reviewed: Yes Vitals/I&O/Wt Last Vital Signs Temp 97.9 F 09/25/24 12:10 Pulse 71 09/25/24 14:06 Resp 20 H 09/25/24 14:06 BP 143/78 09/25/24 12:10 Pulse Ox 97 09/25/24 14:06 O2 Del Method Nasal Cannula 09/25/24 14:06 O2 Flow Rate 4 09/25/24 14:06 FiO2 45 09/25/24 01:10 09/24/24 09/25/24 09/25/24 22:59 06:59 14:59 Intake Total 1440 / 2040 855 / 855 Output Total 4008 / 4008 Balance -2568 / -1968 855 / 855 Weight last 48 hrs Weight 93.032 kg Weight 92.2 kg Weight 94.03 kg Physical Exam 2 Narrative: awake , alert heent- nc/at, eomi neck supple, +JVP lungs dull bases and crackles heart regular abdomen + decreased ascites, + umbilical hernia, distended, +BS significant scrotal edema and tenderness extremities 2+ edema + left Arm AVG neuro-awake alert and appropriate following commands seen and examined w/ aide of a nurse using A/V equipment Data 09/25/24 03:29 09/25/24 13:02 Micro: Microbiology 09/19/24 13:25 Gram Stain - Final Peritoneal Fluid Anaerobic Culture - Preliminary Body Fluid Culture - Final A&P Assessment and plan (1) End stage renal disease on dialysis: 44 year old man 1. ESRD-HD per TTS schedule 2. fevers and recent paracentesis w/ klebsiella-patient had repeat paracentesis. 3. DM 4. anemia- has h/o high ferritin. check iron studies. 5.severe cachexia 6. recent echo last month EF 65%, no severe valvular disease 7. Blood pressure much improved with volume removed. 8. Scrotal ultrasound reviewed extensive scrotal edema with right epididymitis not excluded right testicle and epididymis not visualized due to significant edema. seen and examined w/ RN using A/ V equipment. pt consents o HD and telehealth visits Plan see above PDMP PDMP Reviewed: Not Reviewed Attestations 2 Medical Necessity Statement*: Per medicine team Coding Level of Care Code Acute Code for Chg Fwd Diagnoses End stage renal disease on dialysis N18.6; Z99.2
[2024-09-25 15:19] LABS: Glucose Point of Care 109 mg/dL (70-110)
[2024-09-25 16:05] LABS: Glucose Point of Care 111 mg/dL (70-110)
[2024-09-25] MEDS: heparin, porcine 1,000 unit/mL INJ 10 mL 10000 UNIT HE (17:08)
--- NOTE | 2024-09-25 17:33 | PM.PN ---
Subjective Subjective: Patient was examined this morning, discussed possibly discharging him home today, however I recommended for him to spend another night in the hospital potentially get dialysis later on today or even tomorrow morning as tomorrow is a holiday it is next planned dialysis on Thursday, he still fluid overloaded, he also has hyperkalemia, discussed trial of insulin/D10/calcium gluconate, rechecking his BMP this afternoon. Patient was quite agitated he wanted to go home, but I recommended for further workup and evaluation of his respiratory status before he were to go home, - Recheck potassium remains 5.6 - He did have episode of hypoglycemia blood sugar down to 39, given D10 bolus, orange juice, blood sugars improved to 111, is alert oriented x 3 - Reexamined he has crackles in all lung cantu, he is in a chair slumped over, appears short of breath has 2+ pitting edema - Initially I had planned on discharging him however as his potassium remains high at 5.6, continues to have evidence of respiratory failure I have strongly recommended for him to stay in the hospital as inpatient, to receive inpatient dialysis to help with fluid overload hyperkalemia I recommend against discharge - Patient was quite upset about this, discussed with him the morbidity and mortality of his current condition, he voiced understanding, all questions answered -He denies any chest pain, no palpitations, no lightheadedness, dizziness - I advised him that I recommend for him to stay here in the hospital or he can leave AGAINST MEDICAL ADVICE - But he has a high risk of morbidity and mortality, high risk of rehospitalization - He voiced understanding, all questions answered, initially he wanted to go home, but now is agreeable to stay - Spoke to nephrology about potentially dialyzing him today, will see if he can work him into the schedule or potentially tomorrow morning Vitals/I&O/Wt Last Vital Signs Temp 98.3 F 09/25/24 16:59 Pulse 68 09/25/24 16:59 Resp 18 09/25/24 16:59 BP 145/78 09/25/24 16:59 Pulse Ox 99 09/25/24 16:59 O2 Del Method Nasal Cannula 09/25/24 16:59 O2 Flow Rate 4 09/25/24 14:06 FiO2 45 09/25/24 01:10 05/09/25/24 09/25/24 06:59 14:59 22:59 Intake Total 855 / 855 Balance 855 / 855 Weight last 48 hrs Weight 93.032 kg Weight 92.2 kg Weight 94.03 kg Physical Exam Const: COMMON NORMALS: no acute distress and patient oriented x3 Resp: COMMON NORMALS: normal respiratory effort, No retractions and No use of accessory muscles AUSCULTATION: crackles and wheezes Cardio: COMMON NORMALS: regular rate, regular rhythm, S1 normal heart sound present and S2 normal heart sound present RATE: regular rate RHYTHM: regular rhythm HEART SOUNDS: S1 normal heart sound present and S2 normal heart sound present GI: COMMON NORMALS: Normal to inspection, nondistended, normoactive bowel sounds present and non-tender OTHER: Abdomen distended, fluid wave present, umbilical hernia present Extremity: NARRATIVE EXTREMITY EXAM: 2+ edema OTHER: Diffuse anasarca Neuro: COMMON NORMALS: patient oriented x3 Psych: COMMON NORMALS: mental status grossly normal Data 09/25/24 03:29 09/25/24 13:02 Micro: Microbiology 09/19/24 13:25 Gram Stain - Final Peritoneal Fluid Anaerobic Culture - Preliminary Body Fluid Culture - Final A&P Assessment and plan (1) Severe sepsis: (2) Epididymitis: (3) Acute on chronic heart failure with preserved ejection fraction (HFpEF): (4) Acute and chronic respiratory failure, unspecified whether with hypoxia or hypercapnia: (5) High anion gap metabolic acidosis: Plan Mal Gibbs is a 44 yo man w/ anuric ESRD on TTS HD via a L. AVF, hx of non-compliance, pulmonary hypertension, HTN, HLD, COPD, chronic hypoxic respiratory failure on 4L NC, who presented to the ED on 09/18/2024 with complaints of dyspnea and scrotal pain. He was admitted for CHF exacerbation, SVT and hypoglycemia. #Acute on chronic HFpEF w/ mild mitral regurgitation, -Evidence of persistent respiratory failure, fluid overload, - Continues to be fluid overloaded -anasarca - Will discuss with nephrology about potentially performing hemodialysis later on today or potentially tomorrow morning Hyperkalemia with hypoglycemia - Status post insulin, D10, Kayexalate - Continues to have potassium of 5.6 - Blood sugar improved to 111, currently alert oriented x 3 - Monitor potassium consider dialysis #Anasarca with severe scrotal edema: -Declined scrotal wraps on discussion -record request from [facility] including urology notes. #Transaminitis: - Continue to improve -Will monitor -CPK within normal limits -Ultrasound liver no acute findings #Acutely decompensated liver cirrhosis on presentation with ascites, INR , Thrombocytopenia - Monitor - Will need to follow-up with GI as outpatient #Epididymitis - Continue ciprofloxacin #Severe Sepsis: resolved. # History of spontaneous bacterial peritonitis, peritoneal study in the past 2024 showing Klebsiella pneumonia - Continue ciprofloxacin - Will need to be discharged on ciprofloxacin for prophylaxis Thrombocytopenia: - Monitor Epistaxis: Resolved Entero-/rhinovirus infection. Monitor #Abdominal distention -will consider paracentesis Hypoglycemia: Monitor #ESRD on HD: On dialysis #Hyperkalemia: On dialysis #High anion gap metabolic acidosis -Resolved #HTN urgency: Blood pressure with improvement. #Acute on chronic hypoxic hypercapneic respiratory failure Off BiPAP #COPD -Not in exacerbation. #DM2. Complicated by hypoglycemia and requiring dextrose infusion. - Monitor BG #SVT: Telemetry monitoring DVT ppx: subq heparin held due to epistaxis PDMP PDMP Reviewed: Last Reviewed 09/25/24 12:26 EDT by Tunde Umana MD Attestations Medical Necessity Statement*: Patient requires hospitalization acute CHF exacerbation, requiring inpatient dialysis, hyperkalemia Diagnoses Severe sepsis A41.9; R65.20 Epididymitis N45.1 Acute on chronic heart failure with preserved ejection fraction (HFpEF) I50.33 Acute and chronic respiratory failure, unspecified whether with hypoxia or hypercapnia J96.20 High anion gap metabolic acidosis E87.29
[2024-09-25] MEDS: benzonatate 100 mg Capsule PO (18:30)
[2024-09-25 18:37] LABS: Glucose Point of Care 100 mg/dL (70-110)
[2024-09-25] MEDS: ondansetron 2 mg/ML SDV 2 mL 4 MG IVP (19:26)
[2024-09-25] MEDS: ciprofloxacin 400 MG/200 ML PREMIX 200 MG IV (21:09)
[2024-09-25 21:34] LABS: Glucose Point of Care 116 mg/dL (70-110)
[2024-09-25 22:16] LABS: Vancomycin Random 12.3 ug/mL (20.0-40.0)
[2024-09-26] VITALS (7 sets, daily range): BP systolic 119–151; BP diastolic 66–84; PULSE 67–73; RESP 13–22; TEMP 36.6–37; O2SAT 96–100
[2024-09-26] MEDS: HYDROmorphone tab 2 MG TABLET 1 MG PO (02:39)
[2024-09-26 03:56] LABS: Basophils # 0.1 10^3/uL (0.0-0.1); Basophils % 1.4 %; Eosinophils # 0.5 10^3/uL (0.0-0.8); Eosinophils % 9.6 %; Hematocrit 27.8 % (37-53); Lymphocytes # 0.8 10^3/uL (0.8-4.8); Lymphocytes % 15.5 %; Mean Corpuscular HGB Conc 30.9 g/dL (30-55); Mean Corpuscular Hemoglobin 27.3 pg (27-33); Mean Corpuscular Volume 88.3 fl (82-101); Mean Platelet Volume 11.1 fL (7.4-10.4); Monocytes # 0.7 10^3/uL (0.2-0.9); Monocytes % 14.7 %; Neutrophils # 2.84 10^3/uL (1.8-7.7); Neutrophils % 58.2 %; Nucleated Red Blood Cells % 0 %; Platelet Count 87 10^3/cmm (157-399); Red Blood Count 3.15 10^6/uL (3.85-5.65); White Blood Count 4.89 10^3/uL (3.29-11.43)
[2024-09-26 04:13] LABS: Alanine Aminotransferase 135 U/L (0-41); Albumin Level 2.5 g/dL (3.5-5.2); Alkaline Phosphatase 290 U/L (40-130); Anion Gap 13.1 (5-19); Aspartate Amino Transferase 94 U/L (0-40); Blood Urea Nitrogen 27 mg/dL (6-20); Calcium 9.2 mg/dL (8.5-10.5); Carbon Dioxide 29 mmol/L (22-29); Chloride 98 mmol/L (98-107); Creatinine Clr Calc Pharmacy 24.2675; Globulin 3.7 g/dL (1.3-4.6); Glomerular Filtration Rate 13.4 mL/min (90-130); Glucose 85 mg/dL (65-115); Magnesium 1.8 mg/dL (1.7-2.3); Osmolality Calculated 284 mOsm/kg (285-295); Phosphorus 4.1 mg/dL (2.5-4.5); Potassium 5.1 mmol/L (3.5-5.1); Sodium 135 mmol/L (136-145); Total Bilirubin 0.4 mg/dL (0.15-1.2); Total Protein 6.2 g/dL (6.6-8.7)
[2024-09-26] MEDS: carvedilol 25 mg Tablet 37.5 MG PO (05:10)
--- NOTE | 2024-09-26 05:26 | PC.NURSE ---
patient said he is upset the doors shut we explained he is o droplet precautions its to help keep everyone safe and to not spread anything we can prevent. said the door being closed is his only way to the people outside i assured him if he needs anything to use the call light and we would help him, seemed to ease him.
--- NOTE | 2024-09-26 05:32 | PC.NURSE ---
Patient had placed call light for assistance. This DISTRIBUTOR SALES CONSULTANT answered the call light and asked what i could help him with Pt stated that he wanted the door open after explaining to the patient that was not an accomidation that could be offered do to him being on [place] precautions due to the risk of infecting other patients and staff pt stated go get the nurse. Patient stated that he didnt want this applications scientist back into his room
[2024-09-26 06:31] LABS: Glucose Point of Care 81 mg/dL (70-110)
--- NOTE | 2024-09-26 08:39 | PC.SOCIAL ---
IMM Update Pg. 2 of IMM updated. Copy provided at bedside.
[2024-09-26] MEDS: ipratropium-albuterol 3 mL Neb INHALATION (09:00)
[2024-09-26 09:12] LABS: Vancomycin Random 12.3 ug/mL (20.0-40.0)
[2024-09-26] MEDS: minoxidil 10 mg Tablet PO (10:00)
[2024-09-26] MEDS: benzonatate 100 mg Capsule PO (10:00)
[2024-09-26 10:38] LABS: Glucose Point of Care 73 mg/dL (70-110)
--- NOTE | 2024-09-26 11:45 | P.PN_ITS ---
Subjective 2 Subjective: no new c/o Medications: Reviewed: Yes Vitals/I&O/Wt Last Vital Signs Temp 98.6 F 09/26/24 11:25 Pulse 69 09/26/24 11:25 Resp 18 09/26/24 11:25 BP 151/84 09/26/24 11:25 Pulse Ox 98 09/26/24 11:25 O2 Del Method Nasal Cannula 09/26/24 11:25 O2 Flow Rate 4 09/26/24 09:04 FiO2 45 09/25/24 01:10 09/25/24 09/26/24 09/26/24 22:59 06:59 14:59 Intake Total 980 / 1835 440 / 2275 Output Total 3500 / 3500 Balance -2520 / -1665 440 / -1225 Weight last 48 hrs Weight 94.1 kg Weight 93.032 kg Weight 92.2 kg Physical Exam 2 Narrative: awake , alert heent- nc/at, eomi neck supple, +JVP lungs dull bases and crackles heart regular abdomen + decreased ascites, + umbilical hernia, distended, +BS significant scrotal edema and tenderness extremities 2+ edema + left Arm AVG neuro-awake alert and appropriate following commands seen and examined w/ aide of a nurse using A/V equipment Data 09/26/24 03:16 09/26/24 03:16 Micro: Microbiology 09/19/24 13:25 Gram Stain - Final Peritoneal Fluid Anaerobic Culture - Preliminary Body Fluid Culture - Final A&P Assessment and plan (1) End stage renal disease on dialysis: 44 year old man 1. ESRD-HD per TTS schedule 2. fevers and recent paracentesis w/ klebsiella-patient had repeat paracentesis. 3. DM 4. anemia- has h/o high ferritin. check iron studies. 5.severe cachexia 6. recent echo last month EF 65%, no severe valvular disease 7. Blood pressure much improved with volume removed. 8. Scrotal ultrasound reviewed extensive scrotal edema with right epididymitis not excluded right testicle and epididymis not visualized due to significant edema. seen and examined w/ RN using A/ V equipment. pt consents o HD and telehealth visits Plan see above PDMP PDMP Reviewed: Not Reviewed Attestations 2 Medical Necessity Statement*: per howie Coding Level of Care Code Acute Code for Chg Fwd Diagnoses End stage renal disease on dialysis N18.6; Z99.2
--- NOTE | 2024-09-26 12:39 | PC.NURSE ---
Pt refuses to wear oxygen for discharge home. States, my tanks are always empty anyway.
== END 2024-09-26 12:41 | disposition home or self-care (01) | DRG 871 ==
LOC: ER 09-19 01:23 → ICU 09-19 01:34 → MEDSURG 09-20 11:08
PROVIDERS: Internal Medicine; Internal Medicine Nephrology; Admitting Provider Internal Medicine; Emergency Provider General Practice; PCP Family Medicine; Visit Provider Family Medicine
DX: A41.9 Sepsis, unspecified organism (principal); I50.33 Acute on chronic diastolic (congestive) heart failure; N18.6 End stage renal disease; J96.22 Acute and chronic respiratory failure with hypercapnia; J96.21 Acute and chronic respiratory failure with hypoxia; I13.2 Hypertensive heart and chronic kidney disease with heart failure and with stage 5 chronic kidney disease, or end stage renal disease; E87.20 Acidosis, unspecified; I47.10 Supraventricular tachycardia, unspecified; R18.8 Other ascites; R65.20 Severe sepsis without septic shock; N45.1 Epididymitis; E11.22 Type 2 diabetes mellitus with diabetic chronic kidney disease; E88.A Wasting disease (syndrome) due to underlying condition; Z68.27 Body mass index [BMI] 27.0-27.9, adult; I27.20 Pulmonary hypertension, unspecified; E78.5 Hyperlipidemia, unspecified; E87.5 Hyperkalemia; I16.0 Hypertensive urgency; J44.9 Chronic obstructive pulmonary disease, unspecified; E11.649 Type 2 diabetes mellitus with hypoglycemia without coma; I34.0 Nonrheumatic mitral (valve) insufficiency; F17.210 Nicotine dependence, cigarettes, uncomplicated; D64.9 Anemia, unspecified; D69.6 Thrombocytopenia, unspecified; B34.8 Other viral infections of unspecified site; B34.1 Enterovirus infection, unspecified; K72.90 Hepatic failure, unspecified without coma; Z79.82 Long term (current) use of aspirin
CPT/HCPCS: 36415; 36416; 36600; 49083; 51798; 71045; 76705; 76870; 80048; 80051; 80053; 80202; 80503; 82042; 82150; 82330; 82465; 82550; 82803; 82805; 82945; 82962; 83010; 83605; 83615; 83735; 83880; 83986; 84075; 84100; 84145; 84157; 84315; 84478; 84484; 84560; 85025; 85610; 85730; 86706; 86803; 87015; 87040; 87070; 87075; 87116; 87205; 87206; 87340; 87486; 87581; 87633; 87801; 88112; 88305; 89050; 90935; 93005; 94640; 94660; 96372; 96374; 96375; 96376; 99285; J0360; J0696; J0744; J1610; J1644; J1815; J2270; J2405; J2470; J3370; J3372; J3490; J7799; J9999; P9047; Q3014

== ENCOUNTER 2024-09-30 11:39 | Emergency (ER) | payer MEDICARE, MEDICAID, SELFPAY ==
[2024-09-30] VITALS (11 sets, daily range): BP systolic 114–138; BP diastolic 59–81; PULSE 63–67; RESP 15–21; O2SAT 95–100; BMI 27.0
--- NOTE | 2024-09-30 11:42 | XR_ITS ---
WS: [id number] Portable AP upright chest, 09/30/2024 Clinical Data: dyspnea Comparison: Portable chest, 09/18/2024 Findings: No nodules or masses are seen. The costophrenic angles show mild blunting and there may be small pleural effusions. The heart is enlarged. The pulmonary vascularity is is slightly increased. No pneumonia or pneumothorax is seen. The aortic arch shows calcification. XR/XR chest 1V portable [id number] Impression: 1. Cardiomegaly with mild pulmonary vascular congestion. 2. Atherosclerosis and possible small pleural effusions.
--- NOTE | 2024-09-30 11:42 | ECG_ITS ---
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 Measurements Intervals [place] Rate: 65 P: 66 ND: 332 QRS: 101 QRSD: 113 T: 147 QT: 426 QTc: 444 Interpretive Statements SINUS RHYTHM WITH FIRST DEGREE AV BLOCK RIGHT AXIS DEVIATION [QRS AXIS > 100] SEPTAL MYOCARDIAL INFARCTION , OF INDETERMINATE AGE [40+ ms Q WAVE IN V1/V2] MODERATE T-WAVE ABNORMALITY, CONSIDER ANTEROLATERAL ISCHEMIA [-0.1+ mV T-WAVE IN V3-V6] Compared to ECG 09/19/2024 00:36:57 First degree AV block now present T-wave abnormality now present Possible ischemia now present Intraventricular conduction delay no longer present Myocardial infarct finding still present Electronically Signed On 10-04-2024 11:46:11 CDT by Brijesh King M.D. [email or web address]
[2024-09-30 11:52] LABS: Glucose Point of Care 89 mg/dL (70-110)
--- NOTE | 2024-09-30 11:59 | W.ED.SOB ---
HPI - SOB/Dyspnea General: Chief Complaint: Shortness of Breath/Dyspnea Stated Complaint: SOB, weakness Time Seen by Provider: 09/30/24 11:40 Source: patient and EMS Mode of arrival: EMS Limitations: no limitations History of Present Illness: HPI Narrative: 44-year-old male who is very well-known to the ER history end-stage renal disease called EMS because having some shortness of breath he is scheduled for dialysis today glucose was low with family did give him D50 is 89 currently denies any pain or fever. He wears oxygen at baseline. Associated symptoms: Deny abdominal pain, chest pain, fever(s), nausea or vomiting Related Data Home Medications ?Medication ?Instructions ?Recorded ?Confirmed ferric citrate 210 mg iron tablet See Rx Instructions .Route .COMPLEX 11/03/21 09/30/24 (Auryxia) aspirin 81 mg tablet,delayed 81 mg PO BEDTIME 02/21/22 09/30/24 release vit B,C-folic ac 800 mcg-zinc 12.5 1 tab PO QAM 10/01/22 09/30/24 mg-selen-D3 2,000 unit-vit E tablet (RenaPlex-D) carvedilol 25 mg tablet 37.5 mg PO Q12H 01/09/23 09/30/24 minoxidil 2.5 mg tablet 10 mg PO TID 05/16/24 09/30/24 sevelamer carbonate 800 mg tablet 1,600 mg PO TID 05/16/24 09/30/24 albuterol sulfate 90 mcg/actuation 1 puff inhalation Q6H PRN 09/19/24 09/30/24 aerosol inhaler Shortness Of Breath umeclidinium 62.5 mcg/actuation 1 inh inhalation DAILY 09/19/24 09/30/24 blister powder for inhalation (Incruse Ellipta) hydromorphone 2 mg tablet 2 mg PO Q4H PRN Pain 09/30/24 09/30/24 sulfamethoxazole 400 See Rx Instructions .Route .COMPLEX 09/30/24 09/30/24 mg-trimethoprim 80 mg tablet Previous Rx's ?Medication ?Instructions ?Recorded ciprofloxacin HCl 250 mg tablet 250 mg PO DAILY 30 days #30 tabs 09/25/24 benzonatate 100 mg capsule 100 mg PO TID PRN cough 5 days #15 09/26/24 caps Allergies Allergy/AdvReac Type Severity Reaction Status Date / Time spironolactone Allergy Intermediate facial Verified 09/30/24 11:58 swelling nifedipine Allergy Unknown ALGY-Swell Verified 09/30/24 11:58 Lip/Tongue/Throat haloperidol (From Haldol) Allergy ADR-Irritab Verified 09/30/24 11:58 le ketorolac Allergy Unknown Verified 09/30/24 11:58 lisinopril Allergy ADR-Swelling Verified 09/30/24 11:58 of the Eye Review of Systems Const: Denies: fever(s), chills, body aches or change in appetite ENMT: Denies: throat pain or dental pain Card: Denies: chest pain Resp: Reports: dyspnea GI: Denies: abdominal pain, nausea, vomiting or diarrhea : Denies: dysuria Musc: Denies: neck pain or back pain Skin/Breast: Denies: rash Neuro: Denies: headache(s) PFSH ED PFSH: Medical History Abdominal ascites history of intermittent paracentesis, transudative fluid; prior work up has included negative biopsy, ceruloplasmin level normal, low iron, high ferritin, normal TIBC, negative HIV, hepatitis panel negative, JESÚS/SCL 70/double-stranded DNA antibodies negative, Alpha-fetoprotein level unremarkable, nonalcoholic by history, has hepatomegaly and splenomegaly Epididymitis 06/2022 Dyslipidemia History of home oxygen therapy COPD (chronic obstructive pulmonary disease) Patient under care of multiple providers Umbilical hernia Atherosclerosis of coronary artery Stent and balloon angioplasty to proximal 1 OM branch Congestive heart failure preserved ejection fraction History of cardiovascular stress test 07/2022 at [facility] perfusion imaging probably normal, no reversible defects, small fixed defect in apical anterior wall, EF 54%, nonischemic response to stress by EKG criteria Depression Pulmonary hypertension Uses bilevel positive airway pressure (BPAP) ventilation at home History of coronary angiogram 11/2021 - patent stent Inguinal hernia Chronic respiratory failure on home oxygen and bipap Nicotine dependence, cigarettes, with other nicotine-induced disorders Generalized anxiety disorder with panic attacks ESRD on dialysis Chronic abdominal pain COVID 05/25 Hypertensive emergency recurrent episodes Urethral stricture Pulmonary embolism 09/21 CTA inconclusive for very tiny peripheral LEFT lower lobe pulmonary artery sub segmental emboli versus poor opacification. Anemia chronic kidney disease Arteriovenous fistula for hemodialysis in place, secondary Degenerative disc disease, lumbar Hypertension uncontrolled Surgical History (Updated 09/27/24 @ 00:00 by HALEIGH Chan) History of arteriovenous graft left upper extremity fistula, revision 07/2024 in [place] Stented coronary artery H/O hand surgery Amputation right 2&3 fingers 2017 History of adenoidectomy Family History Other Hypertension Social History Smoking and tobacco/nicotine status: current every day tobacco/nicotine user cigarettes Packs smoked per day: 1.5 Years cigarettes smoked: 21 [ Other cigarette details: started age 20, currently 0.5ppd ] Alcohol intake: never Substance/Drug Use: never Number of children: 3 Current occupational status: disabled Do you think of yourself as: Straight/Heterosexual Physical Exam Const: COMMON NORMALS: no acute distress, patient oriented x3 and healthy appearing HENMT: COMMON NORMALS: normocephalic and atraumatic HEAD & SCALP: normocephalic and atraumatic Eye: COMMON NORMALS: conjunctivae normal CONJUNCTIVA: Yes conjunctivae normal Neck/C-Spine: COMMON NORMALS: full ROM and supple Chest: COMMONS NORMALS: normal inspection of the chest and normal palpation of entire chest wall Resp: COMMON NORMALS: normal respiratory effort, No retractions, No use of accessory muscles and clear to auscultation bilaterally AUSCULTATION: clear to auscultation bilaterally Cardio: COMMON NORMALS: regular rate, regular rhythm and No murmurs present (Cardio) RATE: regular rate RHYTHM: regular rhythm Extremity: COMMON NORMALS: normal to inspection and full ROM Neuro: COMMON NORMALS: patient oriented x3, moves all extremities and no focal motor deficits Psych: COMMON NORMALS: mental status grossly normal, Normal thought process present and cooperative THOUGHT PROCESS: Normal thought process present Skin: COMMON NORMALS: no rashes or lesions noted and no wounds GENERAL SKIN EXAM: no rashes or lesions noted Course Vital Signs: Vital signs: Vital Signs Pulse Rate 67 09/30/24 15:30 Respiratory Rate 20 H 09/30/24 15:30 Blood Pressure 138/79 09/30/24 15:30 Pulse Oximetry 100 09/30/24 15:30 MDM - SOB/Dyspnea Medical Decision Making Mal presents for dyspnea he also had some hypoglycemia his hyperglycemia improved he is received dialysis his labs here at his baseline he stable for discharge return if worsening Medical Records I reviewed the patient's medical records. Lab Data I reviewed the patient's lab results. 09/30/24 12:00 09/30/24 12:00 Labs/Radiology: Radiology Impressions Chest X-Ray 09/30/24 11:42 Impression: 1. Cardiomegaly with mild pulmonary vascular congestion. 2. Atherosclerosis and possible small pleural effusions. Laboratory Results WBC 4.40 10^3/uL (3.29-11.43) 09/30/24 12:00 RBC 3.07 10^6/uL (3.85-5.65) L 09/30/24 12:00 Hgb 8.40 g/dL (11.27-16.99) L 09/30/24 12:00 Hct 27.2 % (37-53) L 09/30/24 12:00 MCV 88.6 fl (82-101) 09/30/24 12:00 MCH 27.4 pg (27-33) 09/30/24 12:00 MCHC 30.9 g/dL (30-55) 09/30/24 12:00 RDW 19.1 % (12.1-15.1) H 09/30/24 12:00 Plt Count 181 10^3/cmm (157-399) 09/30/24 12:00 MPV 11.3 fL (7.4-10.4) H 09/30/24 12:00 Neut % (Auto) 58.0 % 09/30/24 12:00 Lymph % (Auto) 17.3 % 09/30/24 12:00 [place] % (Auto) 14.3 % 09/30/24 12:00 Eos % (Auto) 7.7 % 09/30/24 12:00 Baso % (Auto) 2.5 % 09/30/24 12:00 Neut # (Auto) 2.55 10^3/uL (1.8-7.7) 09/30/24 12:00 Lymph # (Auto) 0.8 10^3/uL (0.8-4.8) 09/30/24 12:00 [place] # (Auto) 0.6 10^3/uL (0.2-0.9) 09/30/24 12:00 Eos # (Auto) 0.3 10^3/uL (0.0-0.8) 09/30/24 12:00 Baso # (Auto) 0.1 10^3/uL (0.0-0.1) 09/30/24 12:00 Nucleated RBC % (auto) 0 % 09/30/24 12:00 Nucleated RBCs # 0.0 /100WBC 09/30/24 12:00 Sodium 130 mmol/L (136-145) L 09/30/24 12:00 Potassium 5.9 mmol/L (3.5-5.1) H 09/30/24 12:00 Chloride 94 mmol/L (98-107) L 09/30/24 12:00 Carbon Dioxide 27 mmol/L (22-29) 09/30/24 12:00 Anion Gap 14.9 (5-19) 09/30/24 12:00 BUN 37 mg/dL (6-20) H 09/30/24 12:00 Creatinine 6.2 mg/dL (0.7-1.2) H* 09/30/24 12:00 GFR Calculation 10.0 mL/min (90-130) L 09/30/24 12:00 Glucose 72 mg/dL (65-115) 09/30/24 12:00 POC Glucose 58 mg/dL (70-110) L 09/30/24 15:04 Calculated Osmolality 277 mOsm/kg (285-295) L 09/30/24 12:00 Calcium 9.5 mg/dL (8.5-10.5) 09/30/24 12:00 Total Bilirubin 0.5 mg/dL (0.15-1.2) 09/30/24 12:00 AST 34 U/L (0-40) 09/30/24 12:00 ALT 50 U/L (0-41) H 09/30/24 12:00 Alkaline Phosphatase 235 U/L (40-130) H 09/30/24 12:00 NT-Pro-B Natriuret Pep > 80904 pg/mL (0-125) H 09/30/24 12:00 Total Protein 6.7 g/dL (6.6-8.7) 09/30/24 12:00 Albumin 2.5 g/dL (3.5-5.2) L 09/30/24 12:00 Globulin 4.2 g/dL (1.3-4.6) 09/30/24 12:00 All radiology interpretation(s) finalized by discharge EKG Data EKG 1: I personally reviewed and interpreted this EKG as follows: EKG Interpretation Date: 09/30/24 EKG interpretation time: 12:05 Interpretation: nsr hr [address] elevation qrs 113 qtc 437 Discharge Plan Discharge Patient Disposition: Home Clinical Impression: End stage renal disease on dialysis, Shortness of breath Condition: Stable Prescriptions: No Action ferric citrate [Auryxia] 210 mg iron Tablet See Rx Instructions .ROUTE .COMPLEX Rx Instructions: Take 420 mg (2 tablets) by mouth three times a day and 210mg (1 tablet) with snacks. aspirin 81 mg tablet,delayed release (DR/EC) 81 mg PO BEDTIME RenaPlex-D 800 mcg-12.5 mg -2,000 unit tablet 1 tab PO QAM carvedilol 25 mg tablet 37.5 mg PO Q12H sulfamethoxazole-trimethoprim 400-80 mg tablet See Rx Instructions .ROUTE .COMPLEX Rx Instructions: TAKE 1 TABLET BY MOUTH ON THURSDAY, THURSDAY AND THURSDAY. hydromorphone 2 mg tablet 2 mg PO Q4H PRN (Reason: Pain) minoxidil 2.5 mg tablet 10 mg PO TID sevelamer carbonate 800 mg tablet 1,600 mg PO TID albuterol sulfate 90 mcg/actuation HFA aerosol inhaler 1 puff INHALATION Q6H PRN (Reason: Shortness Of Breath) Incruse Ellipta 62.5 mcg/actuation blister with device 1 inh INHALATION DAILY ciprofloxacin HCl 250 mg tablet 250 mg PO DAILY 30 Days Qty: 30 0RF benzonatate 100 mg capsule 100 mg PO TID PRN (Reason: cough) 5 Days Qty: 15 0RF Discharge Orders: Discharge ED (Routine); Ordered 09/30/24 Ordered By: Dayana Nunez Referrals: Delio Salazar MD [Primary Care Provider, Family Practice] - 4-7 days Discharge Diet: Advance as tolerated Discharge Activity: Resume usual activity Patient Instructions: Shortness of Breath (ED) Print Language: British Coding Level of Care Code ED Parts Person for Chg Fwd
[2024-09-30 12:06] LABS: Basophils # 0.1 10^3/uL (0.0-0.1); Basophils % 2.5 %; Eosinophils # 0.3 10^3/uL (0.0-0.8); Eosinophils % 7.7 %; Hematocrit 27.2 % (37-53); Lymphocytes # 0.8 10^3/uL (0.8-4.8); Lymphocytes % 17.3 %; Mean Corpuscular HGB Conc 30.9 g/dL (30-55); Mean Corpuscular Hemoglobin 27.4 pg (27-33); Mean Corpuscular Volume 88.6 fl (82-101); Mean Platelet Volume 11.3 fL (7.4-10.4); Monocytes # 0.6 10^3/uL (0.2-0.9); Monocytes % 14.3 %; Neutrophils # 2.55 10^3/uL (1.8-7.7); Nucleated Red Blood Cells % 0 %; Platelet Count 181 10^3/cmm (157-399); Red Blood Count 3.07 10^6/uL (3.85-5.65); Red Cell Distribution Width 19.1 % (12.1-15.1)
[2024-09-30 12:28] LABS: Glucose Point of Care 72 mg/dL (70-110)
[2024-09-30 12:35] LABS: Alanine Aminotransferase 50 U/L (0-41); Albumin Level 2.5 g/dL (3.5-5.2); Alkaline Phosphatase 235 U/L (40-130); Anion Gap 14.9 (5-19); Aspartate Amino Transferase 34 U/L (0-40); Blood Urea Nitrogen 37 mg/dL (6-20); Calcium 9.5 mg/dL (8.5-10.5); Carbon Dioxide 27 mmol/L (22-29); Chloride 94 mmol/L (98-107); Creatinine Clr Calc Pharmacy 18.6899; Globulin 4.2 g/dL (1.3-4.6); Glucose 72 mg/dL (65-115); Osmolality Calculated 277 mOsm/kg (285-295); Potassium 5.9 mmol/L (3.5-5.1); Sodium 130 mmol/L (136-145); Total Bilirubin 0.5 mg/dL (0.15-1.2); Total Protein 6.7 g/dL (6.6-8.7)
[2024-09-30 13:00] LABS: NT Pro B Type Natriuretic Pept > 70000 pg/mL (0-125)
[2024-09-30 13:04] LABS: Glucose Point of Care 69 mg/dL (70-110)
[2024-09-30] MEDS: ondansetron 2 mg/ML SDV 2 mL 4 MG IVP ×2 (13:13→17:13)
[2024-09-30] MEDS: morphine 4 mg/mL SDV 1 mL IVP ×2 (13:13→17:15)
[2024-09-30 13:38] LABS: Glucose Point of Care 72 mg/dL (70-110)
--- NOTE | 2024-09-30 14:42 | PC.PHAR ---
[id number]-[id number]-xzeky care of pts medications.
[2024-09-30 15:12] LABS: Glucose Point of Care 58 mg/dL (70-110)
== END 2024-09-30 18:08 | disposition home or self-care (01) ==
PROVIDERS: Emergency Provider Emergency Medicine; PCP Family Medicine
DX: R06.02 Shortness of breath (principal); Z79.82 Long term (current) use of aspirin; I13.2 Hypertensive heart and chronic kidney disease with heart failure and with stage 5 chronic kidney disease, or end stage renal disease; N18.6 End stage renal disease; I50.30 Unspecified diastolic (congestive) heart failure; Z99.2 Dependence on renal dialysis; J44.9 Chronic obstructive pulmonary disease, unspecified; E78.5 Hyperlipidemia, unspecified; F17.210 Nicotine dependence, cigarettes, uncomplicated
CPT/HCPCS: 36415; 36416; 71045; 80053; 82962; 83880; 85025; 93005; 96374; 96375; 96376; 99285; J2270; J2405

== ENCOUNTER 2024-10-03 11:42 | Day surgery (SDC) | payer MEDICAID, OTHER, SELFPAY ==
[2024-10-03 11:50] VITALS: BP 110/65; PULSE 70; RESP 18; TEMP 36.8; O2SAT 96; BMI 27.9
--- NOTE | 2024-10-03 12:01 | US_ITS ---
WS: [id number] ULTRASOUND-GUIDED THERAPEUTIC AND DIAGNOSTIC PARACENTESIS Procedure, risks, and complications have been explained to the patient. Consent is obtained. Utilizing aseptic technique and 1% buffered lidocaine, a small dermatome was made through which a 5 [place] Yueh catheter was inserted. Approximately 3200 ml of clear peritoneal fluid was obtained without difficulty. No complications encountered. US/US paracentesis abd w [id number] IMPRESSION: Uncomplicated paracentesis yielding 3200 ml of peritoneal fluid.
[2024-10-03 13:46] LABS: Appearance, Peritoneal Fluid Cloudy (Clear); Color, Peritoneal Fluid Pale Yellow (Pale Yellow); Pathology Referral Yes
[2024-10-03 13:47] LABS: Cyto Order Verification Order Verified
[2024-10-03 13:52] LABS: Mononuclear #, Pertinoneal Fl 0.145 10^3/uL; RBC Pertioneal Fluid 1 10^3/uL; WBC Peritoneal Fluid 155 /uL
[2024-10-03 14:28] LABS: Albumin Peritoneal Fluid 1.5 g/dL; Total Protein Peritoneal Fluid 3.2 g/dL
== END 2024-10-03 13:11 | disposition home or self-care (01) ==
LOC: GILAB 11:43
PROVIDERS: Radiology Diagnostic Radiology; PCP Family Medicine; Visit Provider Internal Medicine
PROC: (CPT 49082; principal; 2024-10-03 12:00)
DX: R18.8 Other ascites (principal); K74.60 Unspecified cirrhosis of liver
CPT/HCPCS: 49083; 80503; 82042; 84157; 87070; 87075; 87205; 88112; 88305; 89050

== ENCOUNTER 2024-10-30 20:20 | Observation (INO) | payer OTHER, MEDICAID, SELFPAY ==
--- OUTSIDE RECORDS SUMMARY | 2024-10-28 13:00 | XMS_ITS | Encounter Summary ---
Author Organization [facility] Address [address] [place] [address] Care Team Providers Care Checker Bakery Products Name Role Phone Delio Salazar MD Primary Care Provider + Reason for Referral * Eval and Treat (Routine) - Open Specialty Diagnoses / Procedures Referred By Liz santana Referred To Contact Diagnoses Other specified counseling Procedures MS OFFICE/OUTPATIENT ESTABLISHED MOD MDM 30 MIN MS OFFICE/OUTPATIENT NEW MODERATE MDM 45 MINUTES Freddie Cruz Jr., MD [address] [place] [address] Phone: tel: fax: [address] [address] Phone: tel: fax: Referral ID Status Reason Start Date Expiration Date Visits Re quested Visits Authorized [id number] Open 10/28/2024 10/28/2025 1 1 Reason for Visit * Reason Comments Follow Up Encounter Details Date Type Department Care Team (Latest Contact Info) Description 10/28/2024 1:00 PM CDT Clinical Support [facility] [place] [address] [place] [address] Saskia Slaughter MSW [address] [place] [address] Other specified counseling (Primary Dx) Social History Tobacco Use Types Packs/Day Years Used Date Smoking Tobacco: Every Day Cigarettes 0.8 1.5 Started: 2023 Smokeless Tobacco: Never Comments:Quit smokin cig s/day Alcohol Use Standard Drinks/Week Comments No 0 (1 standard drink = 0.6 oz pur e alcohol) Financial Resource Strain Answer Date R ecorded How hard is it for you to pa y for the very basics like food, housing, medical care, and heating? Somewhat hard 05/29/2020 Food Insecurity Answer Date Recorded Within the past 12 months, y ou worried that your food would run out before you got the money to buy more. Sometimes true Within the past 12 months, t he food you bought just didn't last and you didn't have money to get more. Sometimes true Transportation Needs Answer Date Record ed In the past 12 months, has l ack of transportation kept you from medical appointments or from getting medications? Yes 05/29/2020 Lack of Transportation (Non-Medical) Not on file 05/29/2020 Feeling Safe Answer Date Recorded Do you worry about feeling s afe and happy with the people in your life? No 10/14/2024 Food Insecurity Answer Date Recorded Do you find you are eating l ess than you should because you can t pay for food? No 10/14/2024 Transportation Needs Answer Date Record ed Have you gone without health care because you didn t have a way to get there? Or worry about transportation for future doctor visits, flower picker medication, etc.? No 2024 Housing Stability Answer Date Recorded Do you worry you won t have a steady place to sleep or struggle to pay rent or mortgage? No 10/14/2024 Utility Needs Answer Date Recorded Do you have difficulty payin g for utility costs (electric, water or gas bills)? No 10/14/2024 Medication Needs Answer Date Recorded Have you skipped taking medi cation due to cost or worry you can t afford new medications? No 10/14/2024 Feeling Safe Answer Date Recorded Are you in a relationship wi th someone who hurts you emotionally and/or physically? 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 Housing 1. Are you worried or concerned that in the next two months you may not have stable housing that you own, rent, or stay in as a part of a household? no 2. Think about the place you live. Do you have problems with any of the following? (check all that apply) None of the above Food 3. Within the past 12 months, you worried that your food would run out before you got money to buy more Sometimes True 4. Within the past 12 months, the food you bought just didn???t last and you didn???t have money to get more. Never True Transportation 5. Do you put off or neglect going to the doctor because of distance or transportation? yes Utilities 6. In the past 12 months has the electric, gas, oil, or water company threatened to shut off services in your home? No Research Microbiologist 7. Do problems getting child care specialist make it difficult for you to work or study? no Employment 8.Do you have a job? no Education 9. Do you have a high school degree? yes Finances 10. How often does this describe you? I don???t have enough money to pay my bills? Sometimes Personal Safety 11. How often does anyone, including family, physically hurt you? Never (1) 12. How often does anyone, including family, insult or talk down to you? Never (1) 13. How often does anyone, including family, threaten you with harm? Never (1) 14. How often does anyone, including family, scream or curse at you? Never (1) Assistance 15. Would you like help with any of these needs? no SCORING INSTRUCTIONS: For the housing, food, transportation, utilities, child care specialist, employment, education, and finances questions: Underlined answers indicate a positive response for a social need for that category. For the personal safety questions: A value greater than 10, when the numerical values are summed for answers to these questions, indicates a positive response for a social need for personal safety. Sum of questions 11-14: __4 Greater than 10 equals positive screen for personal safety References 1. https://www.va.gov/HOMELESS/Universal_Screener_to_Identify_Veterans_ Experiencing_Housing_Instability_2013.pdf 2. Kwabena N, Hardeep M, Bossman K, Zeferino DP. Making the social determinants of health a routine part of medical Care. J Health Care Poor Underserved. 2015;26(2):321-327. 3. Cole ER, Eladia AM, Sohail MM, et al. Development and validity of a 2-item screen to identify families at risk for food insecurity. Pediatrics. 2010;126(1):e26-e32. 4. René JT, Maurice DA, Joaquin PH, et al. A brief indicator of household energy security: associations with food security, child health, and child development in [place] infants and toddlers. Pediatrics. 2008;122(4):q921-c504. 5. Children???s HealthWatch. Final: 2012 Children???s Healthwatch survey. http://www. childrenshealthwatch.org/methods/our-survey/. Accessed February 03, 2018. 6. Joselito Miguel, Amado AM, Dax PH, Av RA, Ascencion RE, Vineet JR. Improving the management of family psychosocial problems at lowincome children???s well-child care specialist visits: the WE CARE project. Pediatrics. 2007;120(3):547-558. 7. Victor Hugo PHOENIX, Deb W. Validity and reliability of a financial strain survey. J Financ Couns Plan. 1998;9(2):11-19. 8. Gail KM, Charlene JM, Marcy XQ, Johana RE, Jonathan Miguel. HITS: a short domestic violence screening tool for use in a family practice setting. Fam Med. 1998;30(7):508-512. Supportive and Palliative Care Social Work Consult Note PATIENT: Mal Gibbs AGE: 44 y.o. Date of : 1980 Primary Care Physician: Delio Salazar MD Reason for Referral: Introduce Palliative Care philosophies, assist with advance directives and care planning, assist with financial concerns, assess needs and provide resources, provide supportive listening and counseling, explain the role of the delinquency prevention social worker in Supportive Care Advance Directive Power of Hobber: to be completed at subsequent visits Health Care Agent: N/A Advance Directive Living Will: to be completed at subsequent visits Patient: Assessment and Needs: New patient visit: 10/14/[address] Cruz Family Support: Mal lives in [place] with his mom, Joycelyn, sister Kayla, 16 year old son and nephews. He has a daughter, age 14, that comes to visit. He also has an 18 year old daughter that lives on her own. Other Support: None Transportation: patient's mom brings him to appointments Financial: Payor: [facility] MEDICARE ADVANTAGE / Plan: [facility] DUAL COMPLETE HMO DSNP [facility] [id number]/ Product Type: HMO / Medicaid Does not have food stamps - discussed that he could apply for that, also he says he knows where thefood pantries close to him are [facility] Financial Assistance Program: has medicare and medicaid that covers medical bills Occupation: not employed and on disability Home Services: N/A Assistive Device: Walker outside the home Disability placard: already has one Spirituality: Referral made to pastoral care Next visit: 12/21/24 with Emerita Urban NP Barriers to Care: food insecurity Recommendation/Plan: We discussed him applying for food stamps and he said he knows where the food pantries are close to him. SHUTTLE REPAIRER will continue to monitor and assist as needed. I spent a total of 60 minutes reviewing the chart, completing two assessments, discussing advance care planning, discussing needs and resources, putting in orders and documenting notes in the patient's chart. BOBBY Aguilar, 10/28/2024 documented in this encounter Plan of Treatment Upcoming Encounters Date Type Department Care Team (Late st Contact Info) Description 12/21/2024 11:45 AM CDT Office Visit [facility] [address] [place] [address] Emerita Urban ANP [address] [place] [address] 12/21/2024 2:20 PM CDT Office Visit [facility] [address] [place] [address] Brittani Mcdonnell, CAROL [address] [place] [address] Scheduled Referrals Name Type Priority Associated Diagnoses Orde r Schedule AMB REFERRAL TO PASTORAL CARE OP Referral No Cosign Routine Other specified counseling Ordered: 10/28/2024 documented as of this encounter Visit Diagnoses Diagnosis Other specified counseling- Primary documented in this encounter Additional Health Concerns Assessment Noted Time PHQ-9 Depression Total Score: 2 10/22/19 25 1:00 PM CDT documented as of this encounter Care Teams Checker Bakery Products Relationship Specialty Start Date End Date Delio Salazar MD [address] [place] [phone] PCP - General Family Practice 01/30/24 documented as of this encounter
--- OUTSIDE RECORDS SUMMARY | 2024-10-28 13:00 | XMS_ITS | Encounter Summary ---
Author Organization [facility] Address [address] [place] [address] Care Team Providers Care Circuit Board Repair Technician Name Role Phone Delio Salazar MD Primary Care Provider + Reason for Referral * Eval and Treat (Routine) - Open Specialty Diagnoses / Procedures Referred By Liz santana Referred To Contact Diagnoses Other specified counseling Procedures FL OFFICE/OUTPATIENT ESTABLISHED MOD MDM 30 MIN FL OFFICE/OUTPATIENT NEW MODERATE MDM 45 MINUTES Freddie Cruz Jr., MD [address] [place] [address] Phone: tel: fax: [address] [address] Phone: tel: fax: Referral ID Status Reason Start Date Expiration Date Visits Re quested Visits Authorized [id number] Open 10/28/2024 10/28/2025 1 1 Reason for Visit * Reason Comments Follow Up Encounter Details Date Type Department Care Team (Latest Contact Info) Description 10/28/2024 1:00 PM CDT Clinical Support [facility] [place] [address] [place] [address] Saskia Slaughter MSW [address] [place] [address] Other specified counseling (Primary Dx) Social History [...] worry about transportation for future doctor visits, curing pickling packer medication, etc.? 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 No Mechanic/Welder 7. Do problems getting childcare administrator make it difficult for you to work [...] INSTRUCTIONS: For the housing, food, transportation, utilities, childcare administrator, employment, education, and finances questions: Underlined answers [...] development in [place] infants and toddlers. Pediatrics. 2008;122(4):b154-v277. 5. Children???s HealthWatch. Final: 2012 Children???s Healthwatch survey. http://www. childrenshealthwatch.org/methods/our-survey/. Accessed February 03, 2018. 6. Joselito Miguel, Amado AM, Dax PH, Av RA, Ascencion RE, Vineet JR. Improving the management of family psychosocial problems at lowincome children???s well-childcare administrator visits: the WE CARE project. Pediatrics. 2007;120(3):547-558. [...] and counseling, explain the role of the social insurance analyst in Supportive Care Advance Directive Power of Aluminum Siding Applicator: to be completed at subsequent visits Health Care Agent: N/A Advance Directive Living Will: to be completed at subsequent visits Patient: Assessment and Needs: New patient visit: 10/14/[address] Cruz Family Support: Mal lives in [place] with his mom, Joycelyn, sister Kayla, 16 year old son and nephews. He has a daughter, age 14, that comes to visit. He also has an 18 year old daughter that lives on her own. Other Support: None Transportation: patient's mom brings him to appointments Financial: Payor: [facility] MEDICARE ADVANTAGE / Plan: [facility] DUAL COMPLETE HMO DSNP [facility] [id number]/ Product Type: HMO / Medicaid Does not [...] the food pantries are close to him. BOBBIN WASHER will continue to monitor and assist as [...] Description 12/21/2024 11:45 AM CDT Office Visit [facility] [address] [place] [address] Emerita Urban ANP [address] [place] [address] 12/21/2024 2:20 PM CDT Office Visit [facility] [address] [place] [address] Brittani Mcdonnell, CAROL [address] [place] [address] Scheduled Referrals Name Type Priority [...] documented as of this encounter Care Teams Circuit Board Repair Technician Relationship Specialty Start Date End Date Delio Salazar MD [address] [place] [phone] PCP - General Family Practice 01/30/24 documented as of this encounter
[2024-10-30] VITALS (13 sets, daily range): BP systolic 148–179; BP diastolic 95–109; PULSE 60–72; RESP 17–20; TEMP 36.5; O2SAT 94–99; BMI 25.6
--- NOTE | 2024-10-30 20:25 | ECG_ITS ---
[employer] things you bake Test Date: 2024-10-30 Pat Name: Mal Gibbs Department: Room: 254 Gender: Male Senior Integration Architect: : 1980 Requested By: Jose Negrete Order Number: [id number] Rajan MD: Brijesh King M.D. Measurements Intervals Story Rate: 69 P: 0 DE: 0 QRS: 85 QRSD: 128 T: 169 QT: 378 QTc: 405 Interpretive Statements SUPRAVENTRICULAR RHYTHM MODERATE INTRAVENTRICULAR CONDUCTION DELAY [105+ ms QRS DURATION, 80+ ms Q/S IN V1/V2, NO Q AND 60+ ms R IN I/aVL/V5/V6] ST DEVIATION AND MODERATE T-WAVE ABNORMALITY, CONSIDER LATERAL ISCHEMIA [-0.1+ mV T-WAVE IN I/aVL/V5/V6] Compared to ECG 09/30/2024 12:05:23 Intraventricular conduction delay now present Sinus rhythm no longer present First degree AV block no longer present Possible ischemia still present Electronically Signed On 11-03-2024 09:36:31 CDT by Brijesh King M.D. [email or web address] [id number]
--- OUTSIDE RECORDS SUMMARY | 2024-10-30 20:30 | XMS_ITS | Clinical Summary ---
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 30 Tablet 5 03/05/20 21 Active naloxone (NARCAN) 4 mg/spray [facility], Non-Aerosol EMERGENCY USE ONLY: Administer 1 spray (4 mg) in one nostril one time. May repeat in alternating nostrils every 2-3 min until responsive or EMS arrives. 2 Each 3 09/26/19 23 Active portable oxygenIndication s:Chronic respiratory failure with hypoxia and hypercapnia (CMS/HCC),Chroni c obstructive pulmonary disease with acute exacerbation (CMS/HCC),Chroni c diastolic heart failure (CMS/HCC) Inogen Face to Face completed within 30 days: yes Length of Need: 99 months By: Nasal Cannula Continuously at 4 L/min. 1 Each 02/13/20 23 Active MINOXIDIL ORAL Take 10 mg by mouth 3 times daily. Active Miscellaneous Medical SupplyIndication s:Right inguinal hernia Hernia belt/truss 1 Each 04/20/20 23 Active amLODIPine (NORVASC) 10 mg tabletIndication s:Essential hypertension Take 1 tablet by mouth once daily 100 Tablet 1 10/19/19 24 Active hydrALAZINE (APRESOLINE) 100 mg Tablet tabletIndication s:Essential hypertension take 1 tablet by mouth every 8 hours 300 Tablet 1 10/19/19 24 Active aspirin (ECOTRIN EC) 81 mg Tablet, Delayed Release (E.C.)Indication s:Coronary artery disease involving [place] coronary artery of [place] heart without angina pectoris Take 1 tablet by mouth once daily 100 Tablet 1 10/19/19 24 Active atorvastatin (LIPITOR) 40 mg tabletIndication s:Coronary artery disease involving [place] coronary artery of [place] heart without angina pectoris take 1 tablet by mouth once daily at bedtime 100 Tablet 1 10/22/19 24 Active carvediloL (COREG) 25 mg tabletIndication s:Essential hypertension,Cor onary artery disease involving [place] coronary artery of [place] heart without angina pectoris TAKE 1 & 1/2 (ONE & ONE-HALF) TABLETS BY MOUTH TWICE DAILY WITH MEALS 180 Tablet 07/05/19 25 Active Additional Information Patient taking differently: 50 mg Oral TWO TIMES DAILY WITH MEALS, TAKE 1 & 1/2 (ONE & ONE-HALF) TABLETS BY MOUTH TWICE DAILY WITH MEALS, Reported on 10/08/2024 calcium ACETATE (PHOSLO) 667 mg Capsule Take 667 mg by mouth post-proc every 8 hours. 12/09/19 23 Active nitroglycerin (NITROSTAT) 0.4 mg Tablet, Sublingual Place 1 Tablet under tongue. 08/22/19 22 Active albuterol sulfate HFA 90 mcg/actuation aerosol inhaler Take 1 Puff by inhalation every 6 hours. 8.5 Gram 2 08/19/19 25 Active umeclidinium (INCRUSE ELLIPTA) 62.5 mcg/actuation Disk with Device Take 1 Puff by inhalation daily. 30 Each 2 08/19/19 25 026 Active diclofenac sodium (VOLTAREN) 1 % gel Apply 2 Grams to affected area 4 times daily. 100 Gram 08/19/19 25 Active HYDROmorphone (DILAUDID) 4 mg tabletIndication s:ESRD (end stage renal disease) on dialysis (CMS/HCC),Hepati c cirrhosis, unspecified hepatic cirrhosis type, unspecified whether ascites present (CMS/HCC),Scrota l swelling Take 1 Tablet (4 mg) by mouth every 6 hours as needed for Pain. 10/21/24-11/18/24 Max Daily Amount: 4 Tablets 112 Tablet 10/22/19 25 025 Active HYDROmorphone (DILAUDID) 4 mg tabletIndication s:Palliative care by specialist Take 1 Tablet (4 mg) by mouth every 6 hours as needed for Pain. 11/18/24-12/16/24 Max Daily Amount: 4 Tablets 112 Tablet 11/19/19 25 025 Active HYDROmorphone (DILAUDID) 4 mg tabletIndication s:ESRD (end stage renal disease) on dialysis (CMS/HCC),Hepati c cirrhosis, unspecified hepatic cirrhosis type, unspecified whether ascites present (CMS/HCC),Scrota l swelling,Palliat iron care by specialist Take 1 Tablet (4 mg) by mouth every 6 hours as needed for Pain. 12/16/24-01/13/25 Max Daily Amount: 4 Tablets 112 Tablet 12/17/19 25 025 Active metoclopramide HCl (REGLAN) 10 mg tablet Take 1 Tablet (10 mg) by mouth 3 times daily as needed for Nausea/Emesis. 20 Tablet 10/10/19 25 025 Discontinu ed(Alterna te therapy prescribed ) HYDROmorphone (DILAUDID) 4 mg tabletIndication s:ESRD (end stage renal disease) on dialysis (CMS/HCC),Hepati c cirrhosis, unspecified hepatic cirrhosis type, unspecified whether ascites present (CMS/HCC) Take 0.5-1 Tablets (2-4 mg) by mouth every 6 hours as needed for Pain. Max Daily Amount: 16 mg 28 Tablet 10/15/19 25 025 Discontinu ed(Reorder ) Active Problems Problem Noted Date Diagnosed Date Lower abdominal pain, unspecified 10/12/2024 Cirrhosis of liver with ascites 10/10/2024 Palliative care by specialist 09/08/2024 SBP (spontaneous bacterial peritonitis) 09/06/19 Scrotal edema 09/05/2024 Hydrocele in adult 08/30/2024 Scrotal swelling 08/30/2024 Obesity (BMI 30.0-34.9) 08/30/2024 Tobacco abuse counseling 08/30/2024 Pneumonia of left lower lobe due to infectious o rganism 07/09/2024 S/P arteriovenous (AV) fistula repair 07/09/2024 Community acquired pneumonia 07/01/2024 S/P abdominal paracentesis 06/15/2024 Generalized abdominal pain 06/15/2024 Fall from standing 06/15/2024 Pain of left hip 06/01/2024 HLD (hyperlipidemia) 05/01/2024 GERD (gastroesophageal reflux disease) CHF (congestive heart failure) 05/01/2024 Mood disorder 05/01/2024 Ascites 05/01/2024 Hypoglycemia 05/01/2024 Pancytopenia 05/01/2024 Acute hypoxic respiratory failure 04/30/2024 COVID-19 virus infection 04/30/2024 Tobacco use 04/30/2024 LLQ abdominal pain 04/19/2024 Inadequate pain control 04/19/2024 Left testicular pain 04/15/2024 Disruption of tissue around surgical drain, initial encounter 03/21/2024 Postoperative generalized abdominal pain Acute postoperative abdominal pain 01/25/2024 Small bowel obstruction 01/18/2024 Nonrheumatic tricuspid valve regurgitation 11/15 Melena 10/30/2023 Chronic cor pulmonale 10/09/2023 Hypervolemia 10/06/2023 Dyspnea 10/06/2023 Hemoptysis 10/06/2023 Chronic anticoagulation 10/06/2023 Fluid overload 10/06/2023 Elevated troponin 10/06/2023 QT prolongation 10/06/2023 Hyperkalemia 10/06/2023 Anemia 10/06/2023 Acute heart failure with preserved ejection frac tion 10/06/2023 History of right coronary artery stent placement 10/06/2023 Scrotal pain 09/20/2023 Other ascites 08/31/2023 Constipation 08/31/2023 Inguinal pain 07/28/2023 Pericardial effusion 07/13/2023 Pulmonary hypertension 07/13/2023 Unilateral recurrent inguina l hernia without obstruction or gangrene 07/03/2023 Community acquired pneumonia of left lower lobe of lung 07/02/2023 Incarcerated hernia 05/11/2023 Herniation descends to scrotum 05/11/2023 Right groin pain 03/30/2023 Postoperative lower abdominal pain 03/30/2023 S/P drug eluting coronary stent placement 2022 Heart failure, diastolic, with acute decompensat ion 11/07/2022 Moderate protein-calorie malnutrition 11/07/2022 Noncompliance with renal dialysis 11/04/2022 Essential hypertension 10/13/2022 Inguinal hernia of right anastasia e without obstruction or gangrene 09/25/2022 Right inguinal hernia 09/22/2022 Protein-calorie malnutrition, moderate ESRD (end stage renal disease) on dialysis 09/19 Overview (09/19/2022): On HD Anemia, chronic renal failure 09/19/2022 Overview (09/19/2022): ESRD Coronary atherosclerosis 09/01/2022 Panic attack 08/30/2022 Coronary artery disease due to calcified coronar y lesion 07/15/2022 Chronic diastolic heart failure 07/15/2022 Elevated troponin level not due to acute coronar y syndrome 07/15/2022 History of pulmonary embolism 05/21/2022 Chronic hypoxic respiratory failure 01/23/2021 Chronic pulmonary embolism 10/11/2020 Hepatic cirrhosis 10/09/2020 Neuroforaminal stenosis of lumbar spine 10/10/19 Bilateral renal artery stenosis 10/09/2020 Medical non-compliance 10/09/2020 Chronic obstructive pulmonary disease 05/25/2020 Chronic bilateral low back pain with bilateral s ciatica 05/25/2020 Gastroesophageal reflux disease without esophagi tis 05/25/2020 Pars defect with spondylolisthesis 05/23/2020 Recurrent major depressive disorder, in partial remission 05/23/2020 End-stage renal disease on hemodialysis 04/05/20 20 Focal segmental glomerulosclerosis 01/17/2018 Pain and swelling of knee, left 10/22/2016 Instability of left knee joint 10/22/2016 Tobacco dependence 03/19/2016 Resolved Problems Problem Noted Date Diagnosed Date Resolved Date Gastroenteritis 07/02/2023 07/05/2023 Shortness of breath 01/09/2023 02/10/20 Mild intermittent asthma with exacerbation 01/03/2023 02/09/2023 Chronic bilateral low back p ain without sciatica 12/30/2022 02/09/2023 Hyponatremia 12/23/2022 02/09/2023 ESRD (end stage renal disease) 12/23/2022 02/09/2023 Abdominal pain 11/22/2022 02/09/2023 Pericardial effusion 11/22/2022 023 Pneumonia of both lungs due to infectious organism 11/22/2022 02/09/2023 Acute blood loss anemia 11/07/2022 1001/2023 NSTEMI (non-ST elevated myoc ardial infarction) 11/05/2022 02/09/2023 Acute respiratory failure wi th hypoxia and hypercapnia 11/04/2022 02/09/2023 Endotracheally intubated 11/04/202201/2023 Dependence on renal dialysis 11/04/2022 02/09/2023 Benign hypertension 11/04/2022 02/10/20 23 End stage kidney disease 11/04/202201/2023 Acute respiratory distress 10/27/2022 1 Acute respiratory failure with hypoxia 10/27/2022 02/09/2023 Traumatic hematoma of lower back 10/26/2022 02/09/2023 Acute right-sided back pain 10/26/2022 02/09/2023 Muscle spasm of back 10/07/2022 023 Crush injury of hand, left, initial encounter 09/29/1902/09/2023 Hematuria 09/28/2022 02/09/2023 Dysuria 09/28/2022 02/09/2023 Acute metabolic encephalopathy 09/19/2022 02/09/2023 Depression with suicidal ideation 09/01/2022 02/09/2023 Hypertensive urgency 08/03/2022 023 Abnormal EKG 07/16/2022 02/09/2023 Troponin level elevated 07/14/2022 10/01/2023 Bilateral pulmonary infiltrates on CXR 07/14/2022 02/09/2023 Inguinal hernia 07/14/2022 02/09/2023 Orchitis, epididymitis, and epididymo-orchitis 06/05/2022 02/09/2023 Fever 05/20/2022 02/09/2023 End stage renal disease on dialysis 05/09/2022 02/09/2023 Hypertensive emergency 05/09/202202/09 Hypoxia 04/20/2021 04/23/2021 Hypertensive emergency 01/22/202105/02 Acute pulmonary edema 01/22/20212022 Constipation 05/25/2020 03/06/2021 Bilateral lower extremity edema 01/17/2018 02/09/2023 Proteinuria 01/17/2018 02/09/2023 Perinephric hematoma 12/09/2017 023 Malignant hypertension 12/06/201402/09 Hyperkalemia 02/09/2023 Volume overload 02/09/2023 Acute otitis media Encounters Date Type Department Care Team Description 10/28/2024 1:00 PM CDT Clinical Support [facility] Supportive Care [place] [address] [place] [phone] Saskia Slaughter MSW Other specified counseling (Primary Dx) 10/21/2024 2:00 PM CDT Video Visit [facility] Care [place] [address] [place] [phone] Freddie Cruz Jr., MD Scrotal swelling (Primary Dx); ESRD (end stage renal disease) on dialysis (CMS/HCC); Hepatic cirrhosis, unspecified hepatic cirrhosis type, unspecified whether ascites present (CMS/HCC); Palliative care by specialist 10/14/2024 1:00 PM CDT Office Visit [facility] Supportive Care [place] [address] [place] [address] Freddie Cruz Jr., MD ESRD (end stage renal disease) on dialysis (CMS/HCC) (Primary Dx); Hepatic cirrhosis, unspecified hepatic cirrhosis type, unspecified whether ascites present (CMS/HCC) 10/10/2024 1:12 AM CDT - 10/11/2024 9:27 PM CDT Hospital Encounter [facility] 3A Surgical [address] [place] [address] Rossi Love, Lenka Truong MD Kaur, Harinderjeet, MD Cirrhosis of liver with ascites (CMS/HCC) Discharge Disposition: Home or Self Care 10/08/2024 10:16 PM CDT - 10/09/2024 11:36 PM CDT Emergency [facility] [address] [address] Vincent Bustillos MD Hennon, Marcus, DO Anasarca (Primary Dx); Cirrhosis of liver with ascites, unspecified hepatic cirrhosis type (CMS/HCC); Pericardial effusion; Pleural effusion Discharge Disposition: [facility] 10/08/2024 - 10/08/2024 11:59 PM CDT Hospital Encounter [address] [address] [facility]position: [facility] 10/08/2024 Travel 10/03/2024 12:43 AM CDT - 10/03/2024 3:20 AM CDT [facility] [address] [address] Vincent Bustillos MD Dizziness (Primary Dx); Malaise; Chronic pain syndrome Discharge Disposition: Home or Self Care 10/02/2024 12:37 AM CDT - 10/02/2024 1:41 AM CDT Emergency [facility] [address] [address] Jose Galindo MD Chronic abdominal pain (Primary Dx) Discharge Disposition: Home or Self Care 10/02/2024 Travel 09/30/2024 - 09/30/2024 11:59 PM CDT Hospital Encounter [facility] [address] [address] [facility]: [facility] 09/29/2024 Chart Note [facility] Pulmonology [address] [place] [address] [place] [phone] Darinel Toney FNP 09/28/2024 3:06 PM CDT - 09/28/2024 6:00 PM CDT Emergency [facility] Emergency Medicine [address] [place] [phone] Vincent Bustillos MD Periumbilical abdominal pain (Primary Dx); Inguinal pain, unspecified laterality; Hyperkalemia; ESRD on hemodialysis (CMS/HCC) Discharge Disposition: Home or Self Care 09/28/2024 Travel 09/27/2024 Orders Only [facility] Gastroenterology- [place] [address] [place] [phone] Tunde Umana MD Hepatic cirrhosis, unspecified hepatic cirrhosis type, unspecified whether ascites present (CMS/HCC) (Primary Dx) 09/19/2024 Results Follow-Up [facility] Emergency Medicine [address] [place] [address], [place] [phone] Vivian Motta RN BLOOD CULTURE, BLOOD CULTURE 09/18/2024 4:10 PM CDT - 09/18/2024 11:59 PM CDT Hospital Encounter [facility] [address] [phone] Ambulance, [facility] Discharge Disposition: [facility] 09/17/2024 10:11 AM CDT - 09/17/2024 12:41 PM CDT Emergency [facility] Emergency Medicine [address] [phone] Ifeanyi Sheppard, Shortness of breath (Primary Dx); Scrotum pain; Hypertensive kidney disease with end stage chronic kidney disease on dialysis ([facility]/HCC) Discharge Disposition: Home or Self Care 09/17/2024 8:15 AM CDT - 09/17/2024 11:59 PM CDT Hospital Encounter [facility] [address] [address] Ambulance, [facility] Discharge Disposition: [facility] 09/13/2024 7:36 PM CDT - 09/13/2024 9:03 PM CDT Emergency [facility] Emergency Medicine [address] [facility] [address] [place] [address] Jose Galindo MD ESRD on hemodialysis (CMS/HCC) (Primary Dx); Cirrhosis of liver with ascites, unspecified hepatic cirrhosis type (CMS/HCC); Palliative care by specialist; Scrotal edema Discharge Disposition: Home or Self Care 09/13/2024 Travel 09/12/2024 Telephone [facility] [address] [place] [phone] Chidi Hein Follow Up (Mal was recently evaluated by the Behavioral Health Intake team on 09/08/2024. This it operations manager spoke to the PT/LG/POA if we could provide additional resources. Pt denied the need and this financial underwriter asked them to reach out if we can help.) 09/05/2024 Telephone [facility] [address] [place] [address] Chidi Hein Follow Up (Mal was recently evaluated by the Behavioral Health Intake team on 09/01/1024. This it operations manager did not contact the PT/LG/POA to offer additional BH resources as the pt is currently admitted to [facility].) 08/30/2024 2:12 PM CDT - 09/08/2024 7:35 PM CDT Hospital Encounter [facility] 6B Medical Surgical [address] [place] [address] Emanuel Worthy MD Patel, Taksh, MD Fariza, Tasnuva Tarannum, MD Mady, Mohamed Hamdy Ahmed Mohamed, MD Scrotal swelling Discharge Disposition: Home or Self Care 08/30/2024 1:05 AM CDT - 08/30/2024 11:59 PM CDT Hospital Encounter [facility] Emergency Medical Services [place] [address] [place] [phone] Vincent Bustillos MD Ambulance, [facility] Discharge Disposition: [facility] 08/30/2024 Travel 08/29/2024 11:57 PM CDT - 08/30/2024 12:15 PM CDT Emergency [facility] Emergency Medicine [address] [facility] [address] [place] [address] Vincent Bustillos MD , Barrington Rojas MD Scrotal swelling (Primary Dx); Ascites due to alcoholic cirrhosis (CMS/HCC) Discharge Disposition: [facility] 08/29/2024 - 08/29/2024 11:59 PM CDT Hospital Encounter [facility] Emergency [address] [address] Ambulance, [facility] Discharge Disposition: [facility] 08/21/2024 4:32 PM CDT - 08/21/2024 7:25 PM CDT Emergency [facility] [address] [facility] [address] [place] [address] Jose Galindo MD ESRD on hemodialysis (CMS/HCC) (Primary Dx); S/P abdominal paracentesis Discharge Disposition: [facility] 08/21/2024 1:00 AM CDT - 08/21/2024 11:59 PM CDT Hospital Encounter [facility] [address] [place] [address] Jose Galindo MD Ambulance, [facility] Discharge Disposition: [facility] 08/21/2024 - 08/21/2024 11:59 PM CDT Hospital Encounter [facility] [address] [place] [address] Ambulance, [facility] Discharge Disposition: [facility] 08/21/2024 Travel 08/18/2024 4:53 PM CDT - 08/18/2024 6:04 PM CDT Emergency [facility] [address] [facility] [address] [place] [address] Jose Galindo MD Left knee pain, unspecified chronicity (Primary Dx); Simple chronic bronchitis ([facility]) Discharge Disposition: Home or Self Care 08/18/2024 Travel 08/17/2024 3:30 PM CDT Office Visit [facility] Vascular Surgery [address] [place] [phone] Dre Gonzalez MD End stage renal disease on dialysis ([facility]) (Primary Dx) 08/17/2024 2:30 PM CDT Ancillary Procedure [facility] Vascular Lab and [facility]in [facility]- [address] [place] [phone] Dre Gonzalez MD End stage renal disease on dialysis ([facility]) 08/15/2024 Telephone [facility] Vascular Surgery [address] [place] [phone] Dre Gonzalez MD Appointment Verification 08/08/2024 Results Follow-Up [facility] Gastroenterology- [address] [place] [phone] Jason Perera MD CELL COUNT WITH DIFFERENTIAL, BODY FLUID, PROTEIN, BODY FLUID 08/02/2024 External Device Data [facility] Provider, Abstract 07/31/2024 2:41 AM CDT - 08/08/2024 8:00 PM CDT Hospital Encounter [facility] 3C Ortho Neuro [address] [place] [phone] Charlie Fall DO Melton, Gregory A, DO Sigdel, Supriya, MD Shaffer, Elizabeth Anne, MD Pain and swelling of knee, left Discharge Disposition: Home or Self Care 07/30/2024 6:06 PM CDT - 07/30/2024 10:41 PM CDT Emergency [facility] Emergency Medicine [address] [place] [phone] Barrington Quarles MD Haskin, Theodore William, DO Pyogenic arthritis of left knee joint, due to unspecified organism ([facility]) (Primary Dx) Discharge Disposition: [facility] 07/30/2024 Travel from Last 3 Months Immunizations Immunization Administration Dates Next Due (ADACEL/BOOSTRIX)(10 YR UP) TDAP VACCINE, 0.5ML, IM 03/11/2017,07/15/2016,09/10/2015 (PFIZER)(12 YR UP) COVID-19 VACCINE - EMERGENCY USE AUTHORIZATION, MRNA, [id number](PF) 30 MCG/0.3 ML IM SUSP 12/29/2020,11/28/2020 (PNEUMOVAX 23)(50 YRS UP) PN EUMOCOCCAL POLYSACCHARIDE (PPV23) 0.5 ML, IM 12/10/2017 INFLUENZA VACCINE QUADRIVALE NT 6 MOS UP PF IM 01/29/2022 INFLUENZA VACCINE QUADRIVALE NT RECOMB 18 YR UP PF IM 02/10/2023 Influenza Vaccine Tri Rcmb 18+ PF IM 02/18/2024 Family History Medical History Relation Name Comments Healthy Mother Relation Name Status Comments Mother Alive Social History Tobacco Use Types Packs/Day Years Used Date Smoking Tobacco: Every Day Cigarettes 0.8 1.5 Started: 2023 Smokeless Tobacco: Never Tobacco Cessation:Ready to Q uit: Not Asked; Counseling Given: Not Answered Comments:Quit smokin cigs/day Alcohol Use Standard Drinks/Week Comments No 0 [...] worry about transportation for future doctor visits, merchandise pickup/receiving associate medication, etc.? 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 Gender Identity Not on file Sexual Orientation Not on file Last Filed Vital Signs Vital Sign Reading Time Taken Comments Blood Pressure 152/84 10/14/2024 1:00 PM CDT Pulse 80 10/14/2024 1:00 PM CDT Temperature 37.6 C (99.7 F) 10/14/2024 1:00 PM CDT Respiratory Rate 16 10/11/2024 3:02 PM CDT Oxygen Saturation 99% 10/14/2024 1:00 PM CDT Inhaled Oxygen Concentration - - Weight 93.9 kg (207 lb) 10/14/2024 1:00 PM CDT Height 185.4 cm (6' 1 ) 10/14/2024 1:00 PM CDT Body Mass Index 27.31 10/14/2024 1:00 PM CDT Plan of Treatment Upcoming Encounters Date Type Department Care Team (Late st Contact Info) Description 12/21/2024 11:45 AM CDT Office Visit [facility] Supportive Care [facility] [address] [place] [address] Emerita Urban ANP [address] [place] [address] 12/21/2024 2:20 PM CDT Office Visit [facility] [address] [facility] [address] [place] [address] Brittani Mcdonnell, COMPUTER ASSEMBLER [address] [place] [address] Health Maintenance Due Date Last Done Comments HEPATITIS B VACCINES (1 of 3 - Risk Dialysis 4-dose series) 2002 COVID-19 Vaccine ( season) 2024 12/29/2020, 11/28/2020 Pre-Diabetes and Diabetes Screening 07/21/2024 07/21/2021 DTAP/TDAP/TD VACCINES (4 - Td or Tdap) 03/11/2027 03/11/2017, 07/15/2016, 09/10/2015 INFLUENZA VACCINE Completed 02/18/2024, , 01/29/2022, Additional history exists Abdominal Aortic Aneurysm (AAA) Screening Completed 10/09/2024, 08/30/2024, 05/02/2024, Additional history exists HPV VACCINES Aged Out No longer eligi ble based on patient's age to complete this topic Medical Devices Implanted Type Area Workers' Compensation Mediator Device Identifier Shelf Expiration Date Model / Serial / Lot Cath Dyls Glidepath 23cm [id number] Implanted:Qty : 1 on 07/26/2018 by Miguel Monzon MD Catheter Right: Chest CR BARD- [employer] 08/02/2019 [id number] / / [id number] Clip Ligating Horizon Red [id number] - Csc - [id number] Implanted:Qty : 1 on 07/08/2024 by Dre Gonzalez MD at [facility] Clip Left: Arm [employer] [id number] 03/26/2029 [id number] / / [id number] Clip Ligating Horizon Med Ti [id number] - Csc - [id number] Implanted:Qty : 1 on 07/08/2024 by Dre Gonzalez MD at [facility] Clip Left: Arm [employer]- [employer] [id number] 02/08/2029 [id number] / / [id number] Dev Closure Angioseal 6fr Vip [id number] - [id number] Implanted:Qty : 1 on 11/06/2022 by Betty Day MD at [facility] Closure Device Right: Groin [facility] 05/03/2023 [id number] / / [id number] Dev Vasc Closure Vascade 6-7fr [id number]-[id number] - [id number] Implanted:Qty : 1 on 11/06/2022 at [facility] Closure Device Right: Groin [employer] 12/27/2023 [id number] / / [id number] Agent Hemostat Surgicel 3x4in 1943s - [id number] Implanted:Qty : 1 on 07/08/2024 by Dre Gonzalez MD at [facility] Hemostatic Left: Arm [employer] 03/03/2029 1943S / / [id number] Stent Synergy Xd 3.5x24mm Evrlms Elut [id number] - [id number] Implanted:Qty : 1 on 11/06/2022 by Betty Day MD at [facility] Stent Right: Coronary [employer] 06/09/2024 [id number] / / [id number] Procedures Procedure Name Priority Date/Time Associated Diagnosis Comments COMPREHENSIVE METABOLIC PANEL Routine 10/11/2024 6:56 AM CDT CELL COUNT WITH DIFFERENTIAL, BODY FLUID Routine 10/10/2024 9:21 AM CDT ANAEROBIC/AEROBIC CULTURE W GRAM STAIN Routine 10/10/2024 9:21 AM CDT US ASPIRATION ABDOMEN Routine 10/10/2024 9:19 AM CDT EKG 12-LEAD Routine 10/10/2024 5:58 AM CDT AMMONIA LEVEL Routine 10/10/2024 4:36 AM CDT PTT Routine 10/10/2024 4:36 AM CDT PROTIME-INR Routine 10/10/2024 4:36 AM CDT PHOSPHORUS Routine 10/10/2024 4:36 AM CDT MAGNESIUM LEVEL Routine 10/10/2024 4:36 AM CDT COMPREHENSIVE METABOLIC PANEL Routine 10/10/2024 4:36 AM CDT CBC WITH DIFFERENTIAL Routine 10/10/2024 4:36 AM CDT COVID-19 ANTIGEN Stat 10/09/2024 12:2 7 AM CDT INFLUENZA VIRUS A AND B, ANTIGEN DETECTION Stat 10/09/2024 12:[address] ABDOMEN PELVIS WO CONTRAST Stat 10/09/2024 12:00 AM CDT XR CHEST PA OR AP 1 VW Stat 11:59 PM CDT LIPASE Stat 10/08/2024 10:30 PM CDT COMPREHENSIVE METABOLIC PANEL Stat 10/08/2024 10:30 PM CDT CBC WITH DIFFERENTIAL Stat 10/08/2024 10:30 PM CDT XR CHEST PA OR AP 1 VW Stat 1:15 AM CDT COMPREHENSIVE METABOLIC PANEL Stat 10/03/2024 12:43 AM CDT CBC WITH DIFFERENTIAL Stat 10/03/2024 12:43 AM CDT COMPREHENSIVE METABOLIC PANEL Stat 09/28/2024 3:49 PM CDT CBC WITH DIFFERENTIAL Stat 09/28/2024 3:49 PM CDT XR CHEST PA OR AP 1 VW Stat 10:52 AM CDT BLOOD CULTURE Stat 09/17/2024 10:30 AM CDT BLOOD CULTURE Stat 09/17/2024 10:30 AM CDT COVID-19 ANTIGEN Stat 09/17/2024 10:2 8 AM CDT INFLUENZA VIRUS A AND B, ANTIGEN DETECTION Stat 09/17/2024 10:28 AM CDT RT ASSESS AND TREAT Stat 09/17/2024 1 0:27 AM CDT OXYGEN VIA DEVICE TO KEEP O2 SAT ABOVE Stat 09/17/2024 10:27 AM CDT CAPNOGRAPHY Stat 09/17/2024 10:27 AM CDT PULSE OXIMETRY, CONTINUOUS Stat 09/17/2024 10:27 AM CDT LACTIC ACID Stat 09/17/2024 10:25 AM CDT BRAIN NATRIURETIC PEPTIDE, BNP OR PROBNP Stat 09/17/2024 10:25 AM CDT COMPREHENSIVE METABOLIC PANEL Stat 09/17/2024 10:25 AM CDT CBC WITH DIFFERENTIAL Stat 09/17/2024 10:25 AM CDT BLOOD CULTURE Stat 09/17/2024 10:25 AM CDT BLOOD CULTURE Stat 09/17/2024 10:25 AM CDT BASIC METABOLIC PANEL Stat 09/13/2024 7:54 PM CDT CBC WITH DIFFERENTIAL Stat 09/13/2024 7:54 PM CDT CBC WITH DIFFERENTIAL Routine 09/08/2024 5:39 AM CDT COMPREHENSIVE METABOLIC PANEL Routine 09/08/2024 5:39 AM CDT COMPREHENSIVE METABOLIC PANEL Routine 09/07/2024 6:01 AM CDT CBC WITH DIFFERENTIAL Routine 09/07/2024 6:01 AM CDT COMPREHENSIVE METABOLIC PANEL Routine 09/06/2024 4:19 AM CDT CBC WITH DIFFERENTIAL Routine 09/06/2024 4:19 AM CDT COMPREHENSIVE METABOLIC PANEL Routine 09/05/2024 5:41 AM CDT CBC WITH DIFFERENTIAL Routine 09/05/2024 5:41 AM CDT LACTIC ACID Stat 09/04/2024 2:03 PM CDT US TESTES W SCROTAL DOPPLER LTD Routine 09/04/2024 11:54 AM CDT COMPREHENSIVE METABOLIC PANEL Routine 09/04/2024 5:40 AM CDT CBC WITH DIFFERENTIAL Routine 09/04/2024 5:40 AM CDT POC GLUCOSE Routine 09/03/2024 8:19 AM CDT COMPREHENSIVE METABOLIC PANEL Routine 09/03/2024 6:11 AM CDT CBC WITH DIFFERENTIAL Routine 09/03/2024 6:11 AM CDT COMPREHENSIVE METABOLIC PANEL Routine 09/02/2024 5:29 AM CDT CBC WITH DIFFERENTIAL Routine 09/02/2024 5:29 AM CDT PROTIME-INR Routine 09/01/2024 7:58 PM CDT US ABDOMEN LIMITED Routine 09/01/2024 7: 00 PM CDT COMPREHENSIVE METABOLIC PANEL Routine 09/01/2024 4:13 AM CDT CBC WITH DIFFERENTIAL Routine 09/01/2024 4:13 AM CDT US TESTES W SCROTAL [employer]OP[employer]TD Routine 08/31/2024 12:12 PM CDT US ASPIRATION ABDOMEN Routine 08/31/2024 8:38 AM CDT CYTOLOGY, NON GYNE Pathology 08/31/2024 8: 20 AM CDT PROTEIN, BODY FLUID Routine 08/31/2024 8 :20 AM CDT CELL COUNT WITH DIFFERENTIAL, BODY FLUID Routine 08/31/2024 8:20 AM CDT ALBUMIN LEVEL, BODY FLUID Routine 08/31/2024 8:20 AM CDT AMYLASE, BODY FLUID Routine 08/31/2024 8 :20 AM CDT ANAEROBIC/AEROBIC CULTURE W GRAM STAIN Routine 08/31/2024 8:20 AM CDT ALBUMIN LEVEL Routine 08/31/2024 6:58 AM CDT IRON, TIBC, AND PERCENT SATURATION Routine 08/31/2024 6:58 AM CDT FERRITIN Routine 08/31/2024 6:58 AM CDT BASIC METABOLIC PANEL Routine 08/31/2024 6:58 AM CDT CBC WITH DIFFERENTIAL Routine 08/31/2024 6:[address] ABDOMEN PELVIS WO CONTRAST Stat 08/30/2024 1:21 AM CDT XR CHEST PA OR AP 1 VW Stat 1:20 AM CDT C-REACTIVE PROTEIN Stat 08/30/2024 12 :37 AM CDT BRAIN NATRIURETIC PEPTIDE, BNP OR PROBNP Stat 08/30/2024 12:37 AM CDT COMPREHENSIVE METABOLIC PANEL Stat 08/30/2024 12:37 AM CDT CBC WITH DIFFERENTIAL Stat 08/30/2024 12:37 AM CDT XR CHEST PA OR AP 1 VW Stat 5:01 PM CDT LACTIC ACID Stat 08/21/2024 4:48 PM CDT COMPREHENSIVE METABOLIC PANEL Stat 08/21/2024 4:37 PM CDT CBC WITH DIFFERENTIAL Stat 08/21/2024 4:37 PM CDT XR KNEE 3 VW LEFT Stat 08/18/2024 5:2 2 PM CDT XR CHEST PA OR AP 1 VW Stat 5:09 PM CDT COVID-19 ANTIGEN Stat 08/18/2024 4:57 PM CDT INFLUENZA VIRUS A AND B, ANTIGEN DETECTION Stat 08/18/2024 4:57 PM CDT MAGNESIUM LEVEL Stat 08/18/2024 4:56 PM CDT COMPREHENSIVE METABOLIC PANEL Stat 08/18/2024 4:56 PM CDT CBC WITH DIFFERENTIAL Stat 08/18/2024 4:56 PM CDT US DIALYSIS ACCESS IMAGING Routine 08/17/2024 2:48 PM CDT End stage renal disease on dialysis (CMS/HCC) TELEMETRY REPORT 08/09/2024 4:00 PM CDT US ASPIRATION ABDOMEN Routine 08/08/2024 8:22 AM CDT CYTOLOGY, NON GYNE Routine 08/08/2024 7: 54 AM CDT Cirrhosis of liver without ascites, unspecified hepatic cirrhosis type (CMS/HCC) PROTEIN, BODY FLUID Routine 08/08/2024 7 :54 AM CDT Cirrhosis of liver without ascites, unspecified hepatic cirrhosis type (CMS/HCC) CELL COUNT WITH DIFFERENTIAL, BODY FLUID Routine 08/08/2024 7:54 AM CDT Cirrhosis of liver without ascites, unspecified hepatic cirrhosis type (CMS/HCC) CBC WITH DIFFERENTIAL Routine 08/06/2024 11:06 AM CDT RENAL FUNCTION PANEL Routine 08/06/2024 11:06 AM CDT COMPREHENSIVE METABOLIC PANEL Routine 08/04/2024 5:45 PM CDT CBC WITH DIFFERENTIAL Routine 08/04/2024 5:45 PM CDT US ASPIRATION ABDOMEN Routine 08/03/2024 12:05 PM CDT CELL COUNT WITH DIFFERENTIAL, BODY FLUID Routine 08/03/2024 11:38 AM CDT CBC WITH DIFFERENTIAL Routine 08/03/2024 1:50 AM CDT CK Routine 08/03/2024 1:50 AM CDT ACUTE HEPATITIS PANEL Routine 08/03/2024 1:50 AM CDT COMPREHENSIVE METABOLIC PANEL Routine 08/03/2024 1:50 AM CDT HIV DETECTION W/REFLX CONFIRMATION Routine 08/02/2024 5:26 PM CDT RESPIRATORY PATHOGEN PCR PANEL Routine 08/02/2024 1:20 PM CDT MRSA PCR RAPID SCREEN Routine 08/02/2024 1:20 PM CDT CRYSTAL IDENTIFICATION Stat 1:10 PM CDT CELL COUNT WITH DIFFERENTIAL, BODY FLUID Stat 08/02/2024 1:10 PM CDT JOINT INFECTION PATHOGEN PCR PANEL Routine 08/02/2024 1:10 PM CDT ANAEROBIC/AEROBIC CULTURE W GRAM STAIN Stat 08/02/2024 1:10 PM CDT XR FLUORO NEEDLE PLACEMENT Routine 08/02/2024 1:08 PM CDT HEMODIALYSIS Routine 08/02/2024 7:25 AM CDT PHOSPHORUS Routine 08/02/2024 5:25 AM CDT BASIC METABOLIC PANEL Routine 08/02/2024 5:25 AM CDT CBC WITH DIFFERENTIAL Routine 08/02/2024 5:25 AM CDT PROTIME-INR Stat 08/01/2024 7:39 AM CDT BASIC METABOLIC PANEL Routine 08/01/2024 1:50 AM CDT CBC WITH DIFFERENTIAL Routine 08/01/2024 1:50 AM CDT MRI KNEE WO CONTRAST LEFT Stat 07/31/2024 1:57 PM CDT RT ASSESS AND TREAT Routine 07/31/2024 1 1:10 AM CDT DRAIN/INJECT JOINT Routine 07/31/2024 4: 19 AM CDT LACTIC ACID Stat 07/31/2024 3:28 AM CDT BLOOD CULTURE Stat 07/31/2024 3:28 AM CDT BLOOD CULTURE Stat 07/31/2024 3:28 AM CDT BLOOD CULTURE Stat 07/31/2024 3:28 AM CDT BLOOD CULTURE Stat 07/31/2024 3:28 AM CDT XR CHEST PA OR AP 1 VW Stat 7:00 PM CDT XR KNEE 3 VW LEFT Stat 07/30/2024 7:0 0 PM CDT C-REACTIVE PROTEIN Stat 07/30/2024 6: 30 PM CDT COMPREHENSIVE METABOLIC PANEL Stat 07/30/2024 6:30 PM CDT SEDIMENTATION RATE Stat 07/30/2024 6: 30 PM CDT CBC WITH DIFFERENTIAL Stat 07/30/2024 6:30 PM CDT HEMOGLOBIN A1C Routine 07/21/2021 from Last 3 Months or Most Recently Relevant to Health Maintenance Results * (ABNORMAL) COMPREHENSIVE METABOLIC PANEL (10/11/2024 6:56 AM CDT) Only the most recent of20 resultswithin the time period is included. [facility] Signature SODIUM 134(L) 136 - 145 mmol/L 10/11/2024 7:38 AM CDT [facility] POTASSIUM 5.9(H) 3.5 - 5.1 mmol/L 10/11/2024 7:38 AM CDT [facility] CHLORIDE 98 98 - 107 mmol/L 10/11/2024 7:38 AM [facility] CO2 27 22 - 29 mmol/L 10/11/2024 7:38 AM [facility] CALCIUM 9.2 8.6 - 10.0 mg/dL 10/11/2024 7:38 AM [facility] BUN 26(H) 6 - 20 mg/dL 10/11/2024 7:38 AM [facility] CREATININE 5.50(H) 0.67 - 1.17 mg/dL 10/11/2024 7:38 AM [facility] GLUCOSE 81 74 - 99 mg/dL 10/11/2024 7:38 AM [facility] TOTAL PROTEIN 6.1(L) 6.4 - 8.3 g/dL 10/11/2024 7:38 AM [facility] ALBUMIN 2.3(L) 3.5 - 5.2 g/dL 10/11/2024 7:38 AM [facility] BILIRUBIN TOTAL 0.3 0.0 - 1.0 mg/dL 10/11/2024 7:38 AM [facility] ALKALINE PHOSPHATASE 129 40 - 129 U/L 10/11/2024 7:38 AM [facility] AST 12 10 - 50 U/L 10/11/2024 7:38 AM [facility] ALT 7 <=50 U/L 10/11/2024 7:38 AM [facility] GFR 12(L) >=60 mL/min/1. 73 sq meter 10/11/2024 7:38 AM [facility] Comment:eGFR calculated with 2020 CKD-EPI equation. Vegetarian diet, extremely high or low muscle mass, and may affect results. Cystatin C with Glomerular Filtration Rate is a suitable alternative for these patients. ANION GAP 9 9 - 20 mmol/L 10/11/2024 7:38 AM [facility] Blood Collection / Unknown 10/11/2024 6:56 AM CDT 10/11/2024 6:59 AM CDT us Lenka Spears MD CHEMISTRY ORDERABLES Final Resul t Performing Organization Address [facility] Co de Phone Number [facility] CLIA # [id number] [address] [address] * ANAEROBIC/AEROBIC CULTURE W GRAM STAIN (10/10/2024 9:21 AM CDT) Only the most recent of3 resultswithin the time period is included. CULTURE No aerobic or anaerobic growth 10/13/2024 8:26 AM CDT [facility] GRAM STAIN No organisms observed 10/13/2024 8:26 AM CDT [facility] GRAM STAIN No Polymorphonuclear WBC 10/13/2024 8:26 AM CDT [facility] Body fluid ENTIRE SEROUS MEMBRANE OF PERITONEUM / Unknown Collection / Unknown 10/10/2024 9:21 AM CDT 10/10/2024 11:02 AM CDT Rossi Love DO MICROBIOLOGY - GENERAL ORDER RENE Final Result Performing Organization Address [facility] de Phone Number [facility] CLIA # [id number] [facility] [address] [address] * CELL COUNT WITH DIFFERENTIAL, BODY FLUID (10/10/2024 9:21 AM CDT) Only the most recent of5 resultswithin the time period is included. APPEARANCE, BODY FLUID Clear 10/10/2024 11:44 AM CDT [facility] COLOR, FLD Yellow 10/10/2024 11:44 AM CDT [facility] TOTAL NUCLEATED CELLS, FLD (AUTO) 140 No Ref Range Estab /ul 10/10/2024 11:44 AM CDT [facility] TOTAL RBC'S, FLD (AUTO) <3,000 No Ref Range Estab /ul 10/10/2024 11:44 AM CDT [facility] LYMPHOCYTE, FLD 21 No Ref Range Estab % 10/10/2024 11:44 AM CDT [facility] EOSINOPHIL, FLD 2 No Ref Range Estab % 10/10/2024 11:44 AM CDT [facility] MONOCYTE/MACRO PHAGE, FLD 77 No Ref Range Estab % 10/10/2024 11:44 AM CDT [facility] Body fluid ENTIRE SEROUS MEMBRANE OF PERITONEUM / Unknown Collection / Unknown 10/10/2024 9:21 AM CDT 10/10/2024 11:02 AM CDT Rossi Love DO BODY FLUIDS AND STOOLS Final Result [facility] CLIA # [id number] [address] [place] [address] * US ASPIRATION ABDOMEN (10/10/2024 9:19 AM CDT) Only the most recent of4 resultswithin the time period is included. Anatomical Region Laterality Modality Abdomen Ultrasound 10/10/2024 9:19 AM CDT Addenda Addendum by Ino Sevilla MD on 10/10/2024 1:57 PM CDT 7400 ml was drained, rather than 1400. Impressions 10/10/2024 11:59 AM CDT IMPRESSION: Please see below. Exam: US ASPIRATION ABDOMEN Date/Time of Exam: 10/10/2024 9:19 AM Reason For Exam: Ascites. This procedure was performed and preliminary findings dictated by Diaz Ryan PA-C. Supervision and final interpretation by Dr. Sevilla. CONSENT: Risks, benefits, and alternatives of the procedure were discussed with the patient. Specific risks of paracentesis to include, but not limited to: bleeding, infection, pain, injury to bowel, damage to adjacent tissue/organs, . Procedure may need to be repeated if the fluid sample obtained is non-diagnostic. Written informed consent was obtained from the patient. Description of Procedure: A time out was performed to verify the patient and procedure. The patient was placed in a supine position, and ultrasound was utilized to evaluate the abdomen for the largest pocket of free fluid. The left lower quadrant was selected. The area was marked, prepped, and draped in the usual sterile fashion. All elements of maximal sterile barrier technique, including hand hygiene and cutaneous antisepsis with an antisepsis agent, were used. Local anesthesia was achieved with 1% lidocaine overlying the proposed needle course. A 10-cm 5 Urdu Yueh centesis catheter was inserted. 1400 ml of a clear, yellow ascites was then drained via suction. The centesis catheter was removed in its entirety, the chlorhexidine cleansed from the skin, and a sterile dressing placed. The patient tolerated the procedure without complications. Estimated Blood Loss: None Narrative Procedure Note Ino Sevilla MD - 10/10/2024 IMPRESSION: Please see below. Exam: US ASPIRATION ABDOMEN Date/Time of Exam: 10/10/2024 9:19 AM Reason For Exam: Ascites. This procedure was performed and preliminary findings dictated by Diaz Ryan PA-C. Supervision and final interpretation by Dr. Sevilla. CONSENT: Risks, benefits, and alternatives of the procedure were discussed with the patient. Specific risks of paracentesis to include, but not limited to: bleeding, infection, pain, injury to bowel, damage to adjacent tissue/organs, . Procedure may need to be repeated if the fluid sample obtained is non-diagnostic. Written informed consent was obtained from the patient. Description of Procedure: A time out was performed to verify the patient and procedure. The patient was placed in a supine position, and ultrasound was utilized to evaluate the abdomen for the largest pocket of free fluid. The left lower quadrant was selected. The area was marked, prepped, and draped in the usual sterile fashion. All elements of maximal sterile barrier technique, including hand hygiene and cutaneous antisepsis with an antisepsis agent, were used. Local anesthesia was achieved with 1% lidocaine overlying the proposed needle course. A 10-cm 5 Urdu Yueh centesis catheter was inserted. 1400 ml of a clear, yellow ascites was then drained via suction. The centesis catheter was removed in its entirety, the chlorhexidine cleansed from the skin, and a sterile dressing placed. The patient tolerated the procedure without complications. Estimated Blood Loss: None us Rossi Love DO US ORDERABLES Edited Resul t - Final * EKG 12-LEAD (10/10/2024 5:58 AM CDT) 10/10/2024 5:58 AM CDT Narrative INTERFACE SYSTEM - 10/10/2024 6:58 [place] [address] Test Date: 2024-10-10 Pat Name: [facility] Department: 12 Room: [address] [place] [address] Gender: Male Jack Frame Tender: [id number] : 1980 Requested By: Order Number: [id number] Reading MD: Tess Cuellar Measurements Intervals [place] Rate: 66 P: 52 NV: 364 QRS: 81 QRSD: 108 T: 129 QT: 412 QTc: 431 Interpretive Statements Sinus rhythm with 1st degree AV block with occasional premature ventricular complexes Septal infarct, age undetermined T wave abnormality, consider lateral ischemia Abnormal ECG Electronically Signed On 10-10-2024 6:58:15 CDT by Tess Cuellar Procedure Note Provider, Historical - 10/10/[address] [address] Test Date: 2024-10-10 Pat Name: [facility] Department: 12 Room: [address] [place] [address] Gender: Male Jack Frame Tender: [id number] : 1980 Requested By: Order Number: [id number] Reading : Tess Cuellar Measurements Intervals [place] Rate: 66 P: 52 NV: 364 QRS: 81 QRSD: 108 T: 129 QT: 412 QTc: 431 Interpretive Statements Sinus rhythm with 1st degree AV block with occasional prematureventricular complexes Septal infarct, age undetermined T wave abnormality, consider lateral ischemia Abnormal ECG Electronically Signed On 10-10-2024 6:58:15 CDT by Tess Cuellar us Rossi Love DO ECG ORDERABLES Final Result INTERFACE SYSTEM Refer to clinic/hospital department * (ABNORMAL) CBC WITH DIFFERENTIAL (10/10/2024 4:36 AM CDT) Only the most recent of24 resultswithin the time period is included. Pathologist [facility] WBC 3.7(L) 4.5 - 11.0 K/uL 10/10/2024 4:55 AM [facility] RBC 3.33(L) 4.60 - 6.20 M/uL 10/10/2024 4:55 AM CDT [facility] HEMOGLOBIN 9.1(L) 14.0 - 18.0 g/dL 10/10/2024 4:55 AM [facility] HEMATOCRIT 30.3(L) 41.0 - 53.0 % 10/10/2024 4:55 AM [facility] MCV 91.0 84.0 - 103.0 fL 10/10/2024 4:55 AM [facility] MCH 27.3 27.0 - 34.0 pg 10/10/2024 4:55 AM [facility] MCHC 30.0 30.0 - 35.0 g/dL 10/10/2024 4:55 AM [facility] PLATELETS 287 140 - 440 K/uL 10/10/2024 4:55 AM [facility] MPV 9.8 8.9 - 12.8 fL 10/10/2024 4:55 AM [facility] RDW 18.4(H) 11.0 - 14.5 % 10/10/2024 4:55 AM [facility] RDW-STDEV 60.9(H) 37.0 - 54.0 fL 10/10/2024 4:55 AM [facility] NEUTROPHILS 61 42 - 75 % 10/10/2024 4:55 AM [facility] LYMPHOCYTES 15(L) 24 - 44 % 10/10/2024 4:55 AM [facility] MONOCYTES 8 2 - 10 % 10/10/2024 4:55 AM [facility] EOSINOPHILS 13(H) 0 - 7 % 10/10/2024 4:55 AM [facility] BASOPHILS 3(H) 0 - 1 % 10/10/2024 4:55 AM [facility] IMMATURE GRANULOCYTES 0 0 - 2 % 10/10/2024 4:55 AM T [facility] NEUTROPHIL ABSOLUTE 2.25 2.00 - 8.00 K/uL 10/10/2024 4:55 AM T [facility] LYMPHOCYTE ABSOLUTE 0.54(L) 1.20 - 4.00 K/uL 10/10/2024 4:55 AM T [facility] MONOCYTE ABSOLUTE 0.31 0.10 - 0.60 K/uL 10/10/2024 4:55 AM T [facility] EOSINOPHIL ABSOLUTE 0.46 0.00 - 0.70 K/uL 10/10/2024 4:55 AM [facility] BASOPHILS ABSOLUTE 0.11 0.00 - 0.20 K/uL 10/10/2024 4:55 AM [facility] IMMATURE GRANULOCYTES ABSOLUTE 0.00 0.00 - 0.10 K/uL 10/10/2024 4:55 AM [facility] SMEAR REVIEWED: NA - Not Applicable 10/10/2024 4:55 AM [facility] Blood Venipuncture / Unknown 10/10/2024 4:36 AM CDT 10/10/2024 4:47 AM CDT Rossi Love DO HEMATOLOGY ORDERABLES Final Result [facility] CLIA # [id number] [address] [place] [address] * (ABNORMAL) PTT (10/10/2024 4:36 AM CDT) PTT 42.5(H) 24.8 - 37.2 seconds 10/10/2024 5:01 AM CDT [facility] Blood Venipuncture / Unknown 10/10/2024 4:36 AM CDT 10/10/2024 4:47 AM CDT Narrative [facility] - 10/10/2024 5:01 AM CDT Therapeutic Range: Hi-level PE/DVT heparin protocol 80.1 - 95.0 sec Lo-level PE/DVT heparin protocol 70.1 - 85.0 sec Cardiac Heparin Protocol 70.1 - 100.0 sec Rossi Love DO HEMATOLOGY ORDERABLES Final Result [facility] CLIA # [id number] [address] [place] [id number] * (ABNORMAL) PROTIME-INR (10/10/2024 4:36 AM CDT) Only the most recent of3 resultswithin the time period is included. PROTIME 16.9(H) 12.7 - 14.9 Seconds 10/10/2024 5:01 AM CDT [facility] INR 1.3(H) 0.8 - 1.2 10/10/2024 5:01 AM CDT [facility] Blood Venipuncture / Unknown 10/10/2024 4:36 AM CDT 10/10/2024 4:47 AM CDT Narrative [facility] - 10/10/2024 5:01 AM CDT Expected Values for INR: DVT/PE Goal INR 2.5; range 2.0 - 3.0 Valve Replacement Tissue Goal INR 2.5; range 2.0 - 3.0 Valve Replacement Mechanical Goal INR 3.0; range 2.5 - 3.5 POST-[place] Goal INR 2.5; range 2.0 - 3.0 or Goal INR 3.0; range 2.5 - 3.5 Atrial Fibrillation Goal INR 2.5; range 2.0 - 3.0 Ischemic Stroke Goal INR 2.5; range 2.0 - 3.0 Rossi Love DO HEMATOLOGY ORDERABLES Final Result Performing Organization Address City/[facility]/ZIP Co de Phone Number [facility] CLIA # [id number] [address] [address] [place] [address] * (ABNORMAL) PHOSPHORUS (10/10/2024 4:36 AM CDT) Only the most recent of2 resultswithin the time period is included. PHOSPHORUS 7.1(H) 2.5 - 4.5 mg/dL 10/10/2024 5:35 AM CDT [facility] Blood Venipuncture / Unknown 10/10/2024 4:36 AM CDT 10/10/2024 4:49 AM CDT Rossi Love DO CHEMISTRY ORDERABLES Final R esult Performing Organization Address [facility] Co de Phone Number [facility] CLIA # [id number] [address] [address] [place] [address] * MAGNESIUM LEVEL (10/10/2024 4:36 AM CDT) Only the most recent of2 resultswithin the time period is included. MAGNESIUM 2.3 1.6 - 2.6 mg/dL 10/10/2024 5:35 AM CDT [facility] Blood Venipuncture / Unknown 10/10/2024 4:36 AM CDT 10/10/2024 4:49 AM CDT Rossi Love DO CHEMISTRY ORDERABLES Final R esult Performing Organization Address [facility] Co de Phone Number [facility] CLIA # [id number] [address] [address] [place] [address] * AMMONIA LEVEL (10/10/2024 4:36 AM CDT) AMMONIA 42.9 16.0 - 60.0 umol/L 10/10/2024 5:20 AM CDT [facility] Blood, venous 10/10/2024 4:3 6 AM CDT 10/10/2024 4:47 AM CDT us Rossi Love DO CHEMISTRY ORDERABLES Final R esult [facility] CLIA # [id number] [address] [place] [id number] * COVID-19 ANTIGEN (10/09/2024 12:27 AM CDT) Only the most recent of3 resultswithin the time period is included. Pathologist [facility] COVID-19 ANTIGEN Presumptive Negative Presumptive Negative 10/09/2024 12:57 AM CDT [facility] Upper Respiratory ANTERIOR NARES SWAB / Unknown Collection / Unknown 10/09/2024 12:27 AM CDT 10/09/2024 12:37 AM CDT Narrative [facility] - 10/09/2024 12:57 AM CDT Erma SARS antigen test has been authorized by FDA under an emergency use authorization (EUA) and has been authorized only for the detection of proteins from SARS-CoV-2 and influenza, not for any other viruses or pathogens. Erma SARS Antigen PHILLIP is intended for the simultaneous qualitative detection and differentiation of nucleocapsid protein antigen from SARS-CoV-2 directly from nasopharyngeal (COMPUTER ASSEMBLER) and nasal (NS) swab specimens collected from individuals who are suspected of respiratory viral infection consistent with COVID-19 by their healthcare provider within the first five (5) days of symptom onset when tested at least twice over three days with at least 48 hours between tests, or from individuals without symptoms or other epidemiological reasons to suspect COVID-19 when tested at least three times over five days with at least 48 hours between tests. This test is only authorized for the duration of the declaration that circumstances exist justifying the authorization of emergency use of in vitro diagnostics for detection and/or diagnosis of the virus that causes COVID-19 under Section 564(b)(1) of the Act, 21 U.S.C. 360bbb-3(b)(1), unless the authorization is terminated or revoked sooner. Negative results should be treated as presumptive and confirmed with a molecular assay, if necessary for patient care. Serial testing should be performed in individuals with negative results at least twice over three days (with 48 hours between tests) for symptomatic individuals or from individuals without symptoms or other epidemiological reasons to suspect COVID-19 when tested at least three times over five days with at least 48 hours between tests. Vincent Bustillos MD MICROBIOLOGY - GENERAL ORDER RENE Final Result Performing Organization Address City/[facility]/ZIP Co de Phone Number [facility] CLIA # [id number] [address] [place] [address] * INFLUENZA VIRUS A AND B, ANTIGEN DETECTION (10/09/2024 12:27 AM CDT) Only the most recent of3 resultswithin the time period is included. INFLUENZA A AG NOT DETECTED Not Detected 10/09/2024 12:57 AM CDT [facility] INFLUENZA B AG NOT DETECTED Not Detected 10/09/2024 12:57 AM CDT [facility] Upper Respiratory ENTIRE NASOPHARYNX / Unknown Collection / Unknown 10/09/2024 12:27 AM CDT 10/09/2024 12:37 AM CDT [facility] - 10/09/2024 12:57 AM CDT Negative results do not rule out infection. If clinically indicated, consider PCR testing which is more sensitive than antigen testing. If PCR testing is desired, consult with your local laboratory as sample recollection may be required. Vincent Bustillos MD MICROBIOLOGY - GENERAL ORDER RENE Final Result Performing Organization Address City/[facility]/ZIP Co de Phone Number [facility] CLIA # [id number] [address] [place] [address] * CT ABDOMEN PELVIS WO CONTRAST (10/09/2024 12:00 AM CDT) Only the most recent of2 resultswithin the time period is included. Anatomical Region Laterality Modality Abdomen Computed Tomogra phy 10/08/2024 11:3 6 PM CDT Impressions 10/09/2024 9:04 AM CDT IMPRESSION: Please see below. Exam: CT ABDOMEN PELVIS WO CONTRAST Date/Time of Exam: 10/09/2024 12:00 AM Reason For Exam: lower abdominal pain. Diagnosis: See Reason for Exam. Technique: Axial tomograms obtained through the abdomen and pelvis without IV contrast. Findings: Imaged lower thorax with small bilateral pleural effusions and mild dependent atelectasis. Large volume ascites. No free air. Bladder decompressed. No obstructive pattern of bowel. Appendix grossly within normal limits. No aneurysm of abdominal aorta or central retroperitoneal lymphadenopathy by size criteria. Parenchymal detail of solid abdominal organs limited by absent IV contrast. Cirrhotic configuration of liver. Mild splenomegaly. No radiopaque gallstone. Atrophied kidneys. No hydronephrosis. Pancreas and adrenals grossly within normal limits. Marked subcutaneous anasarca. No concerning skeletal pathology. IMPRESSION: 1. Small bilateral pleural effusions, large volume ascites and marked subcutaneous anasarca. 2. Cirrhotic configuration of liver with mild splenomegaly. Narrative Procedure Note Martha Mann MD - 10/09/2024 IMPRESSION: Please see below. Exam: CT ABDOMEN PELVIS WO CONTRAST Date/Time of Exam: 10/09/2024 12:00 AM Reason For Exam: lower abdominal pain. Diagnosis: See Reason for Exam. Technique: Axial tomograms obtained through the abdomen and pelvis without IV contrast. Findings: Imaged lower thorax with small bilateral pleural effusions and mild dependent atelectasis. Large volume ascites. No free air. Bladder decompressed. No obstructive pattern of bowel. Appendix grossly within normal limits. No aneurysm of abdominal aorta or central retroperitoneal lymphadenopathy by size criteria. Parenchymal detail of solid abdominal organs limited by absent IV contrast. Cirrhotic configuration of liver. Mild splenomegaly. No radiopaque gallstone. Atrophied kidneys. No hydronephrosis. Pancreas and adrenals grossly within normal limits. Marked subcutaneous anasarca. No concerning skeletal pathology. IMPRESSION: 1. Small bilateral pleural effusions, large volume ascites and marked subcutaneous anasarca. 2. Cirrhotic configuration of liver with mild splenomegaly. us Vincent Bustillos MD CT ORDERABLES Final Result * XR CHEST PA OR AP 1 VW (10/08/2024 11:59 PM CDT) Only the most recent of7 resultswithin the time period is included. Anatomical Region Laterality Modality Chest Computed Radiogr aphy 10/08/2024 11:4 9 PM CDT Impressions 10/09/2024 12:56 PM CDT IMPRESSION: Pulmonary venous hypertension. Small bilateral calcified granulomas. Remainder the chest is unremarkable. Narrative 10/09/2024 12:56 PM CDT Exam: Radiographs: XR CHEST PA OR AP 1 VW Indication: Cough Comparison: Chest x-ray dated 10/03/2024 Procedure Note Fransico Frey MD - 10/09/2024 Exam: Radiographs: XR CHEST PA OR AP 1 VW Indication: Cough Comparison: Chest x-ray dated 10/03/2024 IMPRESSION: Pulmonary venous hypertension. Small bilateral calcified granulomas. Remainder the chest is unremarkable. us Vincent Bustillos MD DIAGNOSTIC IMAGING ORDERABLE S Final Result * LIPASE (10/08/2024 10:30 PM CDT) LIPASE 22 13 - 60 U/L 10/09/2024 12:24 AM CDT [facility] Blood BLOOD SPECIMEN / Unknown Collection / Unknown 10/08/2024 10:30 PM CDT 10/09/2024 12:06 AM CDT us Vincent Bustillos MD CHEMISTRY ORDERABLES Final R esult [facility] CLIA # [id number] [address] [place] [address] * BLOOD CULTURE (09/17/2024 10:30 AM CDT) Only the most recent of4 resultswithin the time period is included. BLOOD CULTURE No growth 09/24/2024 12:50 PM CDT [facility] Blood (Peripheral) Venipuncture / Unknown 09/17/2024 10:30 AM CDT 09/17/2024 10:52 AM CDT Ifeanyi Sheppard DO MICROBIOLOGY - GENERAL ORDERAB LES Final Result Performing Organization Address City/[facility]/ZIP Co de Phone Number [facility] CLIA # [id number] [facility] [address] * LACTIC ACID (09/17/2024 10:25 AM CDT) Only the most recent of4 resultswithin the time period is included. LACTIC ACID 0.9 <=2.0 mmol/L 09/17/2024 11:01 AM CDT [facility] Blood BLOOD SPECIMEN / Unknown Venipuncture / Unknown 09/17/2024 10:25 AM CDT 09/17/2024 10:45 AM CDT Ifeanyi Sheppard DO CHEMISTRY ORDERABLES Final Res ult Performing Organization Address City/[facility]/ZIP Co de Phone Number [facility] CLIA # [id number] [address] [place] [address] * (ABNORMAL) BRAIN NATRIURETIC PEPTIDE, BNP OR PROBNP (09/17/2024 10:25 AM CDT) Only the most recent of2 resultswithin the time period is included. PROBNP, N TERMINAL >70,000(H ) 0 - 125 pg/mL 09/17/2024 11:14 AM CDT [facility] Comment: INTERPRETIVE COMMENT based on diagnosis: Diagnostic NT pro-BNP cutoffs for Heart Failure in the absence of renal failure is suggested for the following ranges <75 years: <125 pg/mL >=75 years: <450 pg/mL Exclusionary rule out cut-point for Acute Decompensated Heart Failure(ADHF) All ages: <300 pg/mL Diagnostic NT pro-BNP cutoffs for Acute Decompensated Heart Failure(ADHF) in the absence of renal failure is suggested for the following ages <50 years: > 450 pg/mL 50-75 years: > 900 pg/mL >75 years: >1800 pg/mL Blood Venipuncture / Unknown 09/17/2024 10:25 AM CDT 09/17/2024 10:40 AM CDT us Ifeanyi Foley Law DO CHEMISTRY ORDERABLES Final Res ult [facility] CLIA # [id number] [address] [place] [address] * (ABNORMAL) BASIC METABOLIC PANEL (09/13/2024 7:54 PM CDT) Only the most recent of4 resultswithin the time period is included. SODIUM 130(L) 136 - 145 mmol/L 09/13/2024 8:16 PM [facility] POTASSIUM 5.4(H) 3.5 - 5.1 mmol/L 09/13/2024 8:16 PM [facility] CHLORIDE 96(L) 98 - 107 mmol/L 09/13/2024 8:16 PM [facility] CO2 22 22 - 29 mmol/L 09/13/2024 8:16 PM [facility] CALCIUM 9.6 8.6 - 10.0 mg/dL 09/13/2024 8:16 PM [facility] BUN 49(H) 6 - 20 mg/dL 09/13/2024 8:16 PM [facility] CREATININE 8.83(H) 0.67 - 1.17 mg/dL 09/13/2024 8:16 PM [facility] GLUCOSE 69(L) 74 - 99 mg/dL 09/13/2024 8:16 PM [facility] GFR 7(L) >=60 mL/min/1.7 3 sq meter 09/13/2024 8:16 PM CDT [facility] Comment:eGFR calculated with 2020 CKD-EPI equation. Vegetarian diet, extremely high or low muscle mass, and may affect results. Cystatin C with Glomerular Filtration Rate is a suitable alternative for these patients. ANION GAP 12 5 - 20 mmol/L 09/13/2024 8:16 PM CDT [facility] Blood BLOOD SPECIMEN / Unknown Collection / Unknown 09/13/2024 7:54 PM CDT 09/13/2024 7:59 PM CDT us Jose Galindo MD CHEMISTRY ORDERABLES Final Result [facility] CLIA # [id number] [address] [place] [address] * US TESTES W SCROTAL DOPPLER LTD (09/04/2024 11:54 AM CDT) Only the most recent of2 resultswithin the time period is included. Anatomical Region Laterality Modality Pelvis Ultrasound 09/04/2024 11:5 4 AM CDT Impressions 09/04/2024 12:00 PM CDT IMPRESSION: Please see below. Exam: US TESTES W SCROTAL DOPPLER LTD Date/Time of Exam: 09/04/2024 11:54 AM Reason For Exam: Hydrocele;Pain and Swelling;Swelling;Pain. Diagnosis: See Reason for Exam. Findings: Comparison to scrotal ultrasound study of 08/31/2024. Surgically absent right testicle. Left testicle within normal limits with volume of 11.5 mL. Adequate perfusion to left testicle by Doppler. No hydrocele. No varicocele. No significant change of heterogeneously enlarged left testicle compatible with chronic epididymitis. IMPRESSION: Chronic left-sided epididymitis. Narrative Procedure Note Martha Mann MD - 09/04/2024 IMPRESSION: Please see below. Exam: US TESTES W SCROTAL DOPPLER LTD Date/Time of Exam: 09/04/2024 11:54 AM Reason For Exam: Hydrocele;Pain and Swelling;Swelling;Pain. Diagnosis: See Reason for Exam. Findings: Comparison to scrotal ultrasound study of 08/31/2024. Surgically absent right testicle. Left testicle within normal limits with volume of 11.5 mL. Adequate perfusion to left testicle by Doppler. No hydrocele. No varicocele. No significant change of heterogeneously enlarged left testicle compatible with chronic epididymitis. IMPRESSION: Chronic left-sided epididymitis. Giovanny Key MD US ORDERABLES Final Result * POC GLUCOSE (09/03/2024 8:19 AM CDT) GLUCOSE POC 86 74 - 99 mg/dL 09/03/2024 8:19 AM CDT [facility] SPECIMEN SOURCE, GLUCOSE POC Venous 09/03/2024 8:19 AM CDT [facility] Blood, whole 09/03/2024 8:19 AM CDT 09/03/2024 8:26 AM CDT Giovanny Key MD POINT OF CARE TESTING Final Result [facility] CLIA # [id number] [address] [place] [address] * US ABDOMEN LIMITED (09/01/2024 7:00 PM CDT) Anatomical Region Laterality Modality Abdomen Ultrasound 09/01/2024 7:00 PM CDT Impressions 09/01/2024 9:52 PM CDT IMPRESSION: See below. Exam: US ABDOMEN LIMITED Date/Time of Exam: 09/01/2024 7:00 PM Reason For Exam: Other - Please see comments. Diagnosis: See Reason for Exam Findings: Comparison is made to the CT of 08/30/2024. Pancreas: The pancreas is largely obscured by bowel gas.. No gross abnormality of the visualized portions is noted. Liver: Remarkable. The liver is normal in size. The liver is mildly nodular in contour. The liver is mildly heterogeneous and slightly hyperechoic. No focal liver abnormality is noted. The intrahepatic bile ducts are not dilated. Common bile duct: The common bile duct is normal measuring 4.5 mm. Gallbladder: Remarkable. The gallbladder is normal in size. No gallstones or sludge are noted. The gallbladder wall thickness is abnormal measuring 5.2 mm. Positive Hemphill's sign: No Right kidney: Remarkable. The right kidney measures 5.7 cm in length. The right kidney is very small with severe thinning of the cortex. There are 2 possible right renal cysts one measuring 6 mm and the other 8 mm. Ascites: There is mild right upper quadrant ascites. There is a probably small right pleural effusion. IMPRESSION: 1. The liver is mildly nodular in contour, mildly heterogeneous in appearance and slightly hyperechoic. These findings are suspicious for cirrhosis. 2. Mild right upper quadrant ascites. 3. Probable small right pleural effusion. 4. There is gallbladder wall thickening probably secondary to the ascites. 5. Severe right renal atrophy. 6. Poor visualization of the pancreas. Narrative Procedure Note Trinity Morton MD - 09/01/2024 IMPRESSION: See below. Exam: US ABDOMEN LIMITED Date/Time of Exam: 09/01/2024 7:00 PM Reason For Exam: Other - Please see comments. Diagnosis: See Reason for Exam Findings: Comparison is made to the CT of 08/30/2024. Pancreas: The pancreas is largely obscured by bowel gas.. No gross abnormality of the visualized portions is noted. Liver: Remarkable. The liver is normal in size. The liver is mildly nodular in contour. The liver is mildly heterogeneous and slightly hyperechoic. No focal liver abnormality is noted. The intrahepatic bile ducts are not dilated. Common bile duct: The common bile duct is normal measuring 4.5 mm. Gallbladder: Remarkable. The gallbladder is normal in size. No gallstones or sludge are noted. The gallbladder wall thickness is abnormal measuring 5.2 mm. Positive Hemphill's sign: No Right kidney: Remarkable. The right kidney measures 5.7 cm in length. The right kidney is very small with severe thinning of the cortex. There are 2 possible right renal cysts one measuring 6 mm and the other 8 mm. Ascites: There is mild right upper quadrant ascites. There is a probably small right pleural effusion. IMPRESSION: 1. The liver is mildly nodular in contour, mildly heterogeneous in appearance and slightly hyperechoic. These findings are suspicious for cirrhosis. 2. Mild right upper quadrant ascites. 3. Probable small right pleural effusion. 4. There is gallbladder wall thickening probably secondary to the ascites. 5. Severe right renal atrophy. 6. Poor visualization of the pancreas. Jaylene FELIX US ORDERABLES Final Result * PROTEIN, BODY FLUID (08/31/2024 8:20 AM CDT) Only the most recent of2 resultswithin the time period is included. PROTEIN, FLD 3.1 g/dL 08/31/2024 9:11 AM CDT [facility] Body fluid ENTIRE SEROUS MEMBRANE OF PERITONEUM / Unknown Collection / Unknown 08/31/2024 8:20 AM CDT 08/31/2024 8:31 AM CDT Narrative [facility] - 08/31/2024 9:11 AM CDT Interpretive Criteria: Transudate: <2.0 g/dL Exudate: >2.0 g/dL The reference range and other method performance specifications are unavailable for this body fluid. Comparison of this result with the concentration in the blood, serum, or plasma is recommended. Katheryn Williamson MD BODY FLUIDS AND STOOLS Final Res ult [facility] [id number] [address] [place] [address] * AMYLASE, BODY FLUID (08/31/2024 8:20 AM CDT) AMYLASE, FLD 5 U/L 08/31/2024 9:11 AM CDT [facility] Comment: Interpretive Criteria: Amylase Fluid Normal (U/L): </= Serum Amylase The reference range and other method performance specifications are unavailable for this body fluid. Comparison of this result with the concentration in the blood, serum, or plasma is recommended. Body fluid ENTIRE SEROUS MEMBRANE OF PERITONEUM / Unknown Collection / Unknown 08/31/2024 8:20 AM CDT 08/31/2024 8:31 AM CDT Katheryn Williamson MD BODY FLUIDS AND STOOLS Final Res ult Performing Organization Address [facility] Co de Phone Number [facility] CLIA # [id number] [address] [address] [place] [address] * ALBUMIN LEVEL, BODY FLUID (08/31/2024 8:20 AM CDT) ALBUMIN, FLD 1.3 g/dL 08/31/2024 9:11 AM CDT [facility] Body fluid ENTIRE SEROUS MEMBRANE OF PERITONEUM / Unknown Collection / Unknown 08/31/2024 8:20 AM CDT 08/31/2024 8:31 AM CDT Narrative [facility] - 08/31/2024 9:11 AM CDT Interpretive Criteria: Transudate: Serum-Ascites gradient >1.1 g/dL Exudate: Serum-Ascites gradient <1.1 g/dL The reference range and other method performance specifications are unavailable for this body fluid. Comparison of this result with the concentration in the blood, serum or plasma is recommended. Katheryn Williamson MD BODY FLUIDS AND STOOLS Final Res ult Performing Organization Address [facility] Co de Phone Number [facility] CLIA # [id number] [address] [address] [place] [address] * CYTOLOGY, NON GYNE (08/31/2024 8:20 AM CDT) Only the most recent of2 resultswithin the time period is included. CASE REPORT Medical Cytology Report Case: [id number] Authorizing Provider: Katheryn Williamson MD Collected: 08/31/2024 08:20 AM Ordering Location: [facility] Received: 08/31/2024 10:09 AM 6B Medical Surgical Pathologist: Symone Schneider MD Specimen: Peritoneal (ascitic) fluid 12:21 PM CDT [facility] FINAL DIAGNOSIS A. Ascitic fluid, ThinPrep and cell block - No malignant cells identified - Mesothelial cells and histiocytes present Symone Schneider MD [id number] 12:21 PM CDT [facility] at 1221 CDT GROSS DESCRIPTION A. Peritoneal (ascitic) fluid - 50 ml cloudy yellow fluid processed for ThinPrep and cell block A2. 12:21 PM CDT [facility] CLINICAL INFORMATION No Dx found. 12:21 PM CDT [facility] COMMENT The [employer] voice-activated dictation system may have been used in the creation of this report. Inherent to this system is the possibility of errors in syntax, grammar, punctuation, or other areas that could impact interpretation. If there are interpretive questions about the report, please contact the performing pathologist. Unless gross only is specified in the diagnosis, the microscopic examination substantiates the above cited diagnosis. The performance characteristics of all immunohistochemical stains cited in this report (if any) were determined by the Diagnostic Immunohistochemistry Laboratory of [facility] in compliance with CLIA'88 regulations. Some of these tests rely on the use of analyte specific reagents and are subject to specific labeling requirements by the FDA. All controls show appropriate reactivity. This testing was developed by the Diagnostic Immunohistochemistry [facility] of [facility]. It has not been cleared or approved by the FDA. The FDA has determined that such clearance or approval is not necessary. 12:21 PM CDT [facility] Body fluid ASCITIC FLUID SPECIMEN / Unknown Collection / Unknown 08/31/2024 8:20 AM CDT 08/31/2024 10:09 AM CDT us Kahteryn Williamson MD PATHOLOGY/CYTOLOGY ORDERABLES Fi nal Result [facility] CLIA # [id number] [address] [place] [address] * (ABNORMAL) IRON, TIBC, AND PERCENT SATURATION (08/31/2024 6:58 AM CDT) [facility] IRON 28(L) 59 - 158 ug/dL 08/31/2024 2:17 PM CDT [facility] TIBC 129(L) 250 - 450 ug/dL 08/31/2024 2:17 PM CDT [facility] IRON % SATURATION 22 15 - 60 % 08/31/2024 2:17 PM CDT [facility] Blood Venipuncture / Unknown 08/31/2024 6:58 AM CDT 08/31/2024 7:15 AM CDT Venkat Dawn COMPUTER ASSEMBLER CHEMISTRY ORDERABLES Final R esult Performing Organization Address City/[facility]/ZIP Co de Phone Number [facility] CLIA # [id number] [address] [place] [address] * (ABNORMAL) FERRITIN (08/31/2024 6:58 AM CDT) [facility] FERRITIN 983.7(H) 30.0 - 400.0 ng/mL 08/31/2024 2:17 PM CDT [facility] Blood Venipuncture / Unknown 08/31/2024 6:58 AM CDT 08/31/2024 7:15 AM CDT us Venkat Dawn COMPUTER ASSEMBLER CHEMISTRY ORDERABLES Final R esult [facility] CLIA # [id number] [address] [place] [address] * (ABNORMAL) ALBUMIN LEVEL (08/31/2024 6:58 AM CDT) ALBUMIN 2.4(L) 3.5 - 5.2 g/dL 09/01/2024 2:56 PM CDT [facility] Blood Venipuncture / Unknown 08/31/2024 6:58 AM CDT 08/31/2024 7:15 AM CDT us Jaylene FELIX CHEMISTRY ORDERABLES Final Resul t Performing Organization Address City/[facility] Co de Phone Number [facility] CLIA # [id number] [address] [address] * (ABNORMAL) C-REACTIVE PROTEIN (08/30/2024 12:37 AM CDT) Only the most recent of2 resultswithin the time period is included. CRP 55.8(H) <5.0 mg/L 08/30/2024 3:13 AM CDT [facility] Blood BLOOD SPECIMEN / Unknown Collection / Unknown 08/30/2024 12:37 AM CDT 08/30/2024 12:41 AM CDT us Vincent Bustillos MD CHEMISTRY ORDERABLES Final R esult Performing Organization Address City/[facility] Co de Phone Number [facility] CLIA # [id number] [address] [place] [address] * XR KNEE 3 VW LEFT (08/18/2024 5:22 PM CDT) Only the most recent of2 resultswithin the time period is included. Anatomical Region Laterality Modality Lower Extremity Computed Radiogr aphy 08/18/2024 5:22 PM CDT Impressions 08/18/2024 5:37 PM CDT IMPRESSION: 1. No acute osseous abnormalities or significant degenerative changes of the left knee. 2. Peripheral artery disease of the left lower extremity. Narrative 08/18/2024 5:37 PM CDT EXAM: XR KNEE 3 VW LEFT DIAGNOSIS/REASON FOR EXAM: Injury. DATE AND TIME: 08/18/2024, 5:22 PM. COMPARISON: Radiographs of the left knee obtained on 07/30/2024. TECHNIQUE: AP, oblique, and lateral views of the left knee. FINDINGS: No fracture or dislocation is identified. No osteoblastic or osteolytic lesions are seen. The joint spaces are maintained. No significant joint effusion is seen. The arteries of the left lower extremity contain a [id number] amount of calcified plaque. Procedure Note Victor Hugo Murillo MD - 08/18/2024 EXAM: XR KNEE 3 VW LEFT DIAGNOSIS/REASON FOR EXAM: Injury. DATE AND TIME: 08/18/2024, 5:22 PM. COMPARISON: Radiographs of the left knee obtained on 07/30/2024. TECHNIQUE: AP, oblique, and lateral views of the left knee. FINDINGS: No fracture or dislocation is identified. No osteoblastic or osteolytic lesions are seen. The joint spaces are maintained. No significant joint effusion is seen. The arteries of the left lower extremity contain a [id number] amount of calcified plaque. IMPRESSION: 1. No acute osseous abnormalities or significant degenerative changes of the left knee. 2. Peripheral artery disease of the left lower extremity. Jose Galindo MD DIAGNOSTIC IMAGING OR DERABLES Final Result * US DIALYSIS ACCESS IMAGING (08/17/2024 2:48 PM CDT) Anatomical Region Laterality Modality Upper Extremity Ultrasound 08/17/2024 2:31 PM CDT Narrative 08/17/2024 2:55 PM CDT [facility] [address] [place] [address] Noninvasive Vascular Lab Upper Extremity Hemodialysis Access Follow-up Evaluation Patient: Mal Solis Study ID: US DIALYSIS ACCE Gender: M : 1980 Age: 43 Room: Height: Weight: BSA: Pt status: Outpatient Study Date: 08/17/2024 Study Time: 02:31:17 PM BSA: Ordering: Dre Gonzalez Interpreting:Dre Gonzalez Manager Immunology: Ana Dorado Summary Impression: 1. Normal arterial inflow, involving the left upper extremity. 2. Patent left fistula. 3. See scanned worksheet for vessel depths and diameters. Study data: Upper extremity hemodialysis access followup evaluation. Duplex scan. Patient status: Outpatient. Study status: Routine. Procedure: A vascular evaluation was performed with the patient in the supine position. Image quality was good. Peripheral grafts: Fistula from the left radial artery to the left cephalic vein: [facility] is accredited with the Intersocietal Commission for the Accreditation of Vascular Laboratories (ICAVL) Prepared and Electronically Authenticated Dre Gonzalez Confirmed 08/17/2024 14:55 Procedure Note Dre Gonzalez MD - 08/17/2024 [facility] [address] [place] [id number] Noninvasive Vascular Lab Upper Extremity Hemodialysis Access Follow-up Evaluation Patient: Mal Solis Study ID: US DIALYSIS ACCE Gender: M : 1980 Age: 43 Room: Height: Weight: BSA: Pt status: Outpatient Study Date: 08/17/2024 Study Time: 02:31:17 PM BSA: Ordering: Dre Gonzalez Interpreting:Dre Gonzalez Manager Immunology: Ana Dorado Summary Impression: 1. Normal arterial inflow, involving the left upper extremity. 2. Patent left fistula. 3. See scanned worksheet for vessel depths and diameters. Study data: Upper extremity hemodialysis access followup evaluation. Duplex scan. Patient status: Outpatient. Study status: Routine. Procedure: A vascular evaluation was performed with the patient in thesupine position. Image quality was good. Peripheral grafts: Fistula from the left radial artery to the left cephalic vein: [facility] is accredited withthe Intersocietal Commission for the Accreditation of Vascular Laboratories (ICAVL) Prepared and Electronically Authenticated Dre Gonzalez Confirmed 08/17/2024 14:55 Dre Gonzalez MD ORDERABLES Final Result * TELEMETRY REPORT (08/09/2024 4:00 PM CDT) Provider Scanning ECG ORDERABLES Final Result * (ABNORMAL) RENAL FUNCTION PANEL (08/06/2024 11:06 AM CDT) SODIUM 136 136 - 145 mmol/L 08/06/2024 11:44 AM [facility] POTASSIUM 4.1 3.5 - 5.1 mmol/L 08/06/2024 11:44 AM [facility] CHLORIDE 100 98 - 107 mmol/L 08/06/2024 11:44 AM [facility] CO2 27 22 - 29 mmol/L 08/06/2024 11:44 AM [facility] CALCIUM 9.3 8.6 - 10.0 mg/dL 08/06/2024 11:44 AM [facility] BUN 19 6 - 20 mg/dL 08/06/2024 11:44 AM [facility] CREATININE 4.81(H) 0.67 - 1.17 mg/dL 08/06/2024 11:44 AM [facility] GLUCOSE 80 74 - 99 mg/dL 08/06/2024 11:44 AM [facility] ALBUMIN 2.6(L) 3.5 - 5.2 g/dL 08/06/2024 11:44 AM [facility] PHOSPHORUS 4.6(H) 2.5 - 4.5 mg/dL 08/06/2024 11:44 AM [facility] GFR 15(L) >=60 mL/min/1. 73 sq meter 08/06/2024 11:44 AM CDT [facility] Comment:eGFR calculated with 2020 CKD-EPI equation. Vegetarian diet, extremely high or low muscle mass, and may affect results. Cystatin C with Glomerular Filtration Rate is a suitable alternative for these patients. ANION GAP 9 9 - 20 mmol/L 08/06/2024 11:44 AM CDT [facility] Blood Venipuncture / Unknown 08/06/2024 11:06 AM CDT 08/06/2024 11:12 AM CDT us Zari Hobbs DO CHEMISTRY ORDERABLES Final Resu lt [facility] CLIA # [id number] [facility] [address] * ACUTE HEPATITIS PANEL (08/03/2024 1:50 AM CDT) HEPATITIS B SURFACE AG NON-REACT IRON Non-react iron 08/03/2024 3:00 AM T [facility] Comment:A non-reactive test result does not exclude the possibility of exposure to or infection with hepatitis B. HEPATITIS B CORE IGM NON-REACT IRON Non-react iron 08/03/2024 3:00 AM T [facility] Comment:IgM antibodies to HB c were not detected; does not exclude the possibility of exposure to HBV. HEPATITIS A IGM Non-react iron Non-react iron 08/03/2024 3:00 AM CDT [facility] Comment:A negative test resu lt does not exclude the possibility of exposure to Hepatitis A virus. HEPATITIS C AB NON-REACT IRON Non-react iron 08/03/2024 3:00 AM CDT [facility] Comment:Antibodies to HCV we re not detected, does not exclude the possibility of exposure to HCV. Blood Venipuncture / Unknown 08/03/2024 1:50 AM CDT 08/03/2024 2:06 AM CDT us Zan Bailey MD CHEMISTRY ORDERABLES Final Result Performing Organization Address City/[facility]/ZIP Co de Phone Number [facility] CLIA # [id number] [address] [place], [place] [address] * (ABNORMAL) CK (08/03/2024 1:50 AM CDT) Pathologist [facility] CK 25(L) 39 - 308 U/L 08/03/2024 3:00 AM CDT [facility] Blood Venipuncture / Unknown 08/03/2024 1:50 AM CDT 08/03/2024 2:06 AM CDT us Zan Bailey MD CHEMISTRY ORDERABLES Final Result Performing Organization Address [facility] Co de Phone Number [facility] CLIA # [id number] [address] [facility] [place] [address] * HIV DETECTION W/REFLX CONFIRMATION (08/02/2024 5:26 PM CDT) [facility] HIV-1 AND 2 ABS AND HIV-1 AG Non-reacti ve Non-React iron 08/02/2024 6:42 PM CDT [facility] Blood Venipuncture / Unknown 08/02/2024 5:26 PM CDT 08/02/2024 5:42 PM CDT us Zan Bailey MD CHEMISTRY ORDERABLES Final Result [facility] CLIA # [id number] [address] [place], [place] [address] * MRSA PCR RAPID SCREEN (08/02/2024 1:20 PM CDT) [facility] MRSA PCR RESULT MRSA not detected MRSA not detected 08/02/2024 3:03 PM CDT [facility] Surveillance ANTERIOR NARES SWAB / Unknown Collection / Unknown 08/02/2024 1:20 PM CDT 08/02/2024 1:30 PM CDT [facility] - 08/02/2024 3:03 PM CDT This assay is used to detect Methicillin-Resistant S. aureus (MRSA) colonization of the nares. PLEASE NOTE: This test has not been approved to monitor effectiveness of MRSA decolonization. Residual DNA may temporarily be present after successful decolonization. This test was performed using an FDA approved screening methodology. Zan Bailey MD MICROBIOLOGY - GENERAL ORD ERABLES Final Result [facility] [id number] [address] [place] [address] * RESPIRATORY PATHOGEN PCR PANEL (08/02/2024 1:20 PM CDT) [facility] Respiratory Pathogen PCR Panel NOT DETECTED No respiratory pathogen nucleic acids detected. 08/02/2024 2:54 PM CDT [facility] COVID-19 PCR NOT DETECTED Not Detected 08/02/2024 2:54 PM CDT [facility] Upper Respiratory ENTIRE NASOPHARYNX / Unknown Collection / Unknown 08/02/2024 1:20 PM CDT 08/02/2024 1:30 PM CDT [facility] - 08/02/2024 2:54 PM CDT The Film Array Respiratory Panel (RP2.1) is a multiplex nucleic acid detection test for 22 targets. Viruses: Adenovirus Coronavirus HKU1, NL63, 229E, and OC43 COVID-19/Severe Acute Respiratory Syndrome Coronavirus 2 Influenza A with the following subtypes: H1, H1-2009, and H3 Influenza B Human Metapneumovirus Parainfluenza virus 1, 2, 3, and 4 Respiratory Syncytial virus (RSV) Rhinovirus/Enterovirus (cannot differentiate due to genetic similarities) Bacteria: Bordetella pertussis Bordetella parapertussis Chlamydophila pneumoniae Mycoplasma pneumoniae Zan Bailey MD MICROBIOLOGY - GENERAL ORD ERABLES Final Result [facility] CLME # [id number] [address] [place] [address] [place] [address] * JOINT INFECTION PATHOGEN PCR PANEL (08/02/2024 1:10 PM CDT) [facility] Joint Infection Pathogen PCR Panel No nucleic acids detected. No nucleic acids detected. 08/03/2024 9:22 AM CDT [facility] Synovial fluid ENTIRE KNEE JOINT / Unknown Collection / Unknown 08/02/2024 1:10 PM CDT 08/02/2024 2:18 PM CDT Narrative [facility] - 08/03/2024 9:22 AM CDT The Film Array Joint infection PCR Panel is a multiplexed nucleic acid detection test for the simultaneous qualitative detection and identification of multiple bacterial and yeast nucleic acids from synovial fluid obtained from individuals suspected to have a joint infection. It also detects genetic determinants of resistance to methicillin (mecA/C and MREJ), vancomycin (Jorge L and vanB), carbapenems (IMP, KPC, NDM, OXA-48 like and VIM), and ESBL (CTX-M). A negative result does not exclude the possibility of infection. This panel does not distinguish between nucleic acid from live or organisms. Culture is needed for recovery of isolates and antimicrobial susceptibility testing. The [employer] International JI Panel is indicated as an aid in the diagnosis of specific agents of joint infection and results should be used in conjunction with other clinical and laboratory findings. Negative results may be due to infection with pathogens that are not detected by this test, pathogens present below the limit of detection of the assay, or infection that may not be detected in a synovial fluid specimen. Positive results do not rule out co-infection with other organisms. The [employer] JI Panel is not intended to monitor treatment for joint infections. The following organisms are identified using the IZI-collecte JIP Panel: Gram Positive Bacteria: Anaerococcus prevotii/vaginalis Clostridium perfringens Cutibacterium avidum/granulosum Enterococcus faecalis Enterococcus faecium Finegoldia magna Parvimonas micra Peptoniphilus spp. Peptostreptococcus anaerobius Staphylococcus aureus Staphylococcus lugdunensis Streptococcus spp. Streptococcus agalactiae Streptococcus pneumoniae Streptococcus pyogenes Gram Negative Bacteria Bacteroides fragilis Citrobacter spp. Enterobacter cloacae complex Escherichia coli Haemophilus influenzae Kingella kingae Klebsiella aerogenes Klebsiella pneumoniae group Morganella morganii Neisseria gonorrhoeae Proteus spp. Pseudomonas aeruginosa Salmonella spp. Serratia marcescens Yeast: Radha spp. Radha albicans Jimmy Perez MD MICROBIOLOGY - GENERAL O RDERABLES Final Result Performing Organization Address [facility] Co de Phone Number [facility] CLIA # [id number] [facility] [address] * CRYSTAL IDENTIFICATION (08/02/2024 1:10 PM CDT) JOINT FLD CRYSTAL TYPE No crystals polarized No crystals polarized 08/02/2024 2:23 PM CDT [facility] Synovial fluid ENTIRE KNEE JOINT / Unknown Collection / Unknown 08/02/2024 1:10 PM CDT 08/02/2024 2:18 PM CDT Jimmy Perez MD BODY FLUIDS AND STOOLS F inal Result Performing Organization Address [facility] Co de Phone Number [facility] CLIA # [id number] [address] [address] * XR FLUORO NEEDLE PLACEMENT (08/02/2024 1:08 PM CDT) Anatomical Region Laterality Modality Computed Radiogr aphy 08/02/2024 1:08 PM CDT Impressions 08/02/2024 1:50 PM CDT IMPRESSION: Please see below. Exam: XR FLUORO NEEDLE PLACEMENT Date/Time of Exam: 08/02/2024 1:08 PM Reason For Exam: See Diagnosis. This procedure was performed and preliminary findings dictated by Abraham Vyas PA-C. Supervision and final interpretation by Dr. Fitch. CONSENT: Risks, benefits, and alternatives of the procedure were discussed with the patient. Specific risks of arthrocentesis to include, but not limited to: infection, bleeding, and damage to surrounding tissue. Written informed consent was obtained from the patient. DESCRIPTION OF PROCEDURE: A time out was performed to verify the patient and procedure. The patient was placed in the supine position. The [left] posterior lateral patellar space was marked, prepped, and draped in the usual sterile fashion. All elements of maximal sterile barrier technique, including hand hygiene and cutaneous antisepsis with an antisepsis agent, were used. Local anesthesia was achieved with 1% lidocaine overlying the proposed needle course. Under fluoroscopic guidance, a 22-gauge needle was guided into the [left] posterior-lateral patellofemoral joint. 24 cc of serosanguineous joint fluid was aspirated. The needle was withdrawn, the Chlorhexidine cleansed from the skin, and a sterile dressing placed. Estimated Blood Loss: None Narrative Procedure Note Meir Fitch MD - 08/02/2024 IMPRESSION: Please see below. Exam: XR FLUORO NEEDLE PLACEMENT Date/Time of Exam: 08/02/2024 1:08 PM Reason For Exam: See Diagnosis. This procedure was performed and preliminary findings dictated by Abraham Vyas PA-C. Supervision and final interpretation by Dr. Fitch. CONSENT: Risks, benefits, and alternatives of the procedure were discussed with the patient. Specific risks of arthrocentesis to include, but not limited to: infection, bleeding, and damage to surrounding tissue. Written informed consent was obtained from the patient. DESCRIPTION OF PROCEDURE: A time out was performed to verify the patient and procedure. The patient was placed in the supine position. The [left] posterior lateral patellar space was marked, prepped, and draped in the usual sterile fashion. All elements of maximal sterile barrier technique, including hand hygiene and cutaneous antisepsis with an antisepsis agent, were used. Local anesthesia was achieved with 1% lidocaine overlying the proposed needle course. Under fluoroscopic guidance, a 22-gauge needle was guided into the [left] posterior-lateral patellofemoral joint. 24 cc of serosanguineous joint fluid was aspirated. The needle was withdrawn, the Chlorhexidine cleansed from the skin, and a sterile dressing placed. Estimated Blood Loss: None Jessica Mix MD DIAGNOSTIC IMAGING ORDERABLES Final Result * HEMODIALYSIS (08/02/2024 7:25 AM CDT) Peace Dent MD - 08/02/2024 7:25 AM CDT Peace Bingham MD 08/02/2024 7:30 AM PROCEDURE: Intermittent Hemodialysis INDICATION: ESRD Procedure: Utilizing the patient's as a vascular access, the patient was initiated on hemodialysis. Dialysis is planned for 4 hours. Blood flow of 400 ml per minute and Dialysate flow of 600 ml per minute were prescribed. The bath used was 2 mEq/L potassium, 3 mEq/L calcium, 140 mEq/L sodium and 35 mEq/L bicarbonate. UF goal: 3, BP stable. No complications have been encountered to this point. I was present during dialysis, and was available for the entirety of the dialysis treatment. Review of Systems Musculoskeletal: Positive for joint pain (Left knee pain). Medications Reviewed in [facility] Physical Exam: BP (!) 140/67 Pulse 68 Temp 99.7 F (37.6 C) Resp 15 Ht 6' 1 (1.854 m) Wt 104.1 kg (229 lb 8 oz) SpO2 98% BMI 30.28 kg/m Physical Exam Labs: Reviewed in [facility] Lab Results Component Value Date/Time NA 133 (L) 08/02/2024 05:25 AM K 5.5 (H) 08/02/2024 05:25 AM CL 98 08/02/2024 05:25 AM CO2 28 08/02/2024 05:25 AM CA 9.4 08/02/2024 05:25 AM BUN 19 08/02/2024 05:25 AM CREAT 5.43 (H) 08/02/2024 05:25 AM GLUCOSE 83 08/02/2024 05:25 AM ANIONGAP 7 (L) 08/02/2024 05:25 AM BCRATIO 6 09/07/2023 03:03 PM Lab Results Component Value Date/Time WBC 3.4 (L) 08/02/2024 05:25 AM HGB 7.9 (L) 08/02/2024 05:25 AM HGBPOC 10.8 (L) 11/09/2022 08:33 AM HCT 26.1 (L) 08/02/2024 05:25 AM HCTPOC 32 (L) 11/09/2022 08:33 AM PLT 223 08/02/2024 05:25 AM MCV 97.4 08/02/2024 05:25 AM Lab Results Component Value Date/Time PTHI 114.6 (H) 07/21/2018 01:17 PM CA 9.4 08/02/2024 05:25 AM PO4 4.0 05/06/2024 05:57 AM Lab Results Component Value Date/Time TOTALPROTEIN 6.5 (L) 07/30/2024 06:30 PM ALBUMIN 3.0 (L) 07/30/2024 06:30 PM Assessment and Plan: ESRD: On hemodialysis TTS at [facility] dialysis unit. He was seen and evaluated on hemodialysis today. On 2 K bath and ultrafiltration 3 L. Will continue to see on dialysis days on TTS Renal dose medications. Continue supportive care. Check phosphorous level. 2. Anemia of ESRD: Historically ferritin has been very high. Hgb is < 10 Will add epogen stimulating agent while in the hospital. # compliant with frequency and duration of dialysis: yes Peace Bingham MD [facility] 08/02/24, 7:26 AM Zari Hobbs DO DIALYSIS ORDERABLES Final Resul t * MRI KNEE WO CONTRAST LEFT (07/31/2024 1:57 PM CDT) Anatomical Region Laterality Modality Lower Extremity Magnetic Resonan ce 07/31/2024 12:4 0 PM CDT Impressions 07/31/2024 5:26 PM CDT IMPRESSION: Please see below. Exam: MRI KNEE WO CONTRAST LEFT Date/Time of Exam: 07/31/2024 1:57 PM Reason For Exam: fall with knee pain. Diagnosis: Pain and swelling of knee, left; Pain and swelling of knee, left. Comparison: Left knee radiographs 07/30/2024. Findings: Images to greater by signal starvation. LIGAMENTS: ACL: Intact. PCL: Intact. MCL: Intact. LCL COMPLEX: Intact. Effusion: Moderate. Popliteal Cyst: None. ANTERIOR COMPARTMENT: Quadriceps tendon: Normal, Patellar tendon: Normal. Retinaculum: Medial Normal. Lateral Normal. Patellar cartilage: Normal. Trochlea: Normal. Trochlea cartilage: Normal. Plica: Medial plica not significantly thickened. Hoffa fat pad: Unremarkable. MEDIAL COMPARTMENT: Medial meniscus: Normal. Medial femoral condyle cartilage: Normal. Medial tibial plateau cartilage: Normal. LATERAL COMPARTMENT: Lateral meniscus: Normal. Lateral femoral condyle cartilage: Normal. Lateral tibial plateau cartilage: Normal. Bones (other than subarticular marrow): Normal. Muscles: Normal. Vessels: Normal. Nerves: Normal. Soft tissues: Extensive circumferential subcutaneous edema about the knee is present. Impression: 1. Negative for internal derangement. 2. Moderate effusion of the suprapatellar pouch. 3. Extensive, nonspecific, circumferential subcutaneous edema about the knee. Narrative Procedure Note Meir Fitch MD - 07/31/2024 IMPRESSION: Please see below. Exam: MRI KNEE WO CONTRAST LEFT Date/Time of Exam: 07/31/2024 1:57 PM Reason For Exam: fall with knee pain. Diagnosis: Pain and swelling of knee, left; Pain and swelling of knee, left. Comparison: Left knee radiographs 07/30/2024. Findings: Images to greater by signal starvation. LIGAMENTS: ACL: Intact. PCL: Intact. MCL: Intact. LCL COMPLEX: Intact. Effusion: Moderate. Popliteal Cyst: None. ANTERIOR COMPARTMENT: Quadriceps tendon: Normal, Patellar tendon: Normal. Retinaculum: Medial Normal. Lateral Normal. Patellar cartilage: Normal. Trochlea: Normal. Trochlea cartilage: Normal. Plica: Medial plica not significantly thickened. Hoffa fat pad: Unremarkable. MEDIAL COMPARTMENT: Medial meniscus: Normal. Medial femoral condyle cartilage: Normal. Medial tibial plateau cartilage: Normal. LATERAL COMPARTMENT: Lateral meniscus: Normal. Lateral femoral condyle cartilage: Normal. Lateral tibial plateau cartilage: Normal. Bones (other than subarticular marrow): Normal. Muscles: Normal. Vessels: Normal. Nerves: Normal. Soft tissues: Extensive circumferential subcutaneous edema about the knee is present. Impression: 1. Negative for internal derangement. 2. Moderate effusion of the suprapatellar pouch. 3. Extensive, nonspecific, circumferential subcutaneous edema about the knee. Jimmy Perez MD MR ORDERABLES Final Re sult * Joint Aspiration (07/31/2024 4:19 AM CDT) Narrative Charlie Fall DO - 07/31/2024 4:19 AM CDT Charlie Fall DO 07/31/2024 5:05 AM Joint Aspiration Date/Time: 07/31/2024 4:19 AM Performed by: Charlie Fall DO Authorized by: Charlie Fall DO Consent: Consent obtained: Verbal Consent given by: Patient Risks, benefits, and alternatives were discussed: yes Risks discussed: Bleeding, infection, pain and incomplete drainage Alternatives discussed: Referral and no treatment [place] protocol: Procedure explained and questions answered to patient or proxy's satisfaction: yes Relevant documents present and verified: yes Test results available: yes Imaging studies available: yes Required blood products, implants, devices, and special equipment available: yes Site/side marked: yes Immediately prior to procedure, a time out was called: yes Patient identity confirmed: Verbally with patient Location: Location: Knee Knee: L knee Anesthesia: Anesthesia method: Local infiltration Local anesthetic: Lidocaine 1% w/o epi Procedure details: Preparation: Patient was prepped and draped in usual sterile fashion Needle gauge: 18 G Ultrasound guidance: no Approach: Superior Aspirate amount: No aspirate Aspirate characteristics: Bloody Post-procedure details: Dressing: Sterile dressing Procedure completion: Tolerated well, no immediate complications Comments: Second attempt was made on the medial aspect of the knee after once again cleaning the area and anesthetizing with 1% lidocaine, a spinal needle was used due to concern with the patient's edema that I was unable to get into the joint space, however I was unable to obtain any aspirate despite multiple attempts. I did try to avoid areas of significant redness or possible infection Charlie Fall DO PROCEDURE/MINOR SURGICAL ORDERABLES Final Result * (ABNORMAL) SEDIMENTATION RATE (07/30/2024 6:30 PM CDT) ESR (SEDIMENTATION RATE) 132(H) 0 - 15 mm/Hr 07/30/2024 6:43 PM CDT [facility] Blood Venipuncture / Unknown 07/30/2024 6:30 PM CDT 07/30/2024 6:35 PM CDT Narrative [facility] - 07/30/2024 6:43 PM CDT Tube Lot: #[id number] Exp Date: 12/01/2025 SR 0125-1 EXP. 11/05/24 SR 0125-2 EXP. 11/05/24 us Barrington Quarles MD HEMATOLOGY ORDERABLES Final Res ult [facility] CLIA # [id number] [address] [place] [address] * HEMOGLOBIN A1C (07/21/2021) ABSTRACTED HGB A1C 4.0 Blood 07/21/2021 us Abstract Provider CHEMISTRY ORDERABLES Final Res ult from Last 3 Months or Most Recently Relevant to Health Maintenance Insurance MEDICAID [place] [employer] Medicare Part D RX INFOCROSSING Medicaid RX HAYS PLANS (INTERNAL) [facility] Internal Plans WORKERS COMP MEDICAID [place] Advance Directives For more information, please contact: [phone] * Full Code (Latest Code Status on File) Date Activated Date Inactivated Comments 10/10/2024 3:58 AM 10/11/2024 11:27 PM * Default Full Code - Needs Discussion Date Activated Date Inactivated Comments 10/10/2024 2:01 AM 10/10/2024 3:58 AM * Full Code Date Activated Date Inactivated Comments 08/30/2024 3:08 PM 09/08/2024 9:44 PM * Full Code Date Activated Date Inactivated Comments 07/31/2024 7:32 AM 08/08/2024 10:44 PM * Full Code Date Activated Date Inactivated Comments 04/30/2024 4:49 PM 05/06/2024 4:08 PM Care Teams Graining Press Operator Relationship Specialty Start Date End Date Delio Salazar MD [facility] [place] [address] PCP - General Family Practice 01/30/24
--- OUTSIDE RECORDS SUMMARY | 2024-10-30 20:30 | XMS_ITS | Clinical Summary ---
Author Organization [facility] Address [address] [place] [address] Phone Care Team Providers Care Power Line Installer And Repairer Name Role Phone Mal Junior MD Primary Care Provider [phone] [phone] Allergies Active Allergy Reactions Criticality Noted Date Comments Nifedipine Swelling Low 04/11/2020 Medications calcium acetate,phosphat bind, (PHOSLO) 667 mg Capsule Take 667 mg by mouth 3 times daily with meals. Active lactulose (ENULOSE) 10 gram/15 mL 10 gram/15 mL solution TAKE 45 ML BY MOUTH EVERY 12 HOURS FOR 15 DAYS. 0 Active Incruse Ellipta 62.5 mcg/actuation Disk with DeviceIndications :Chronic obstructive pulmonary disease, unspecified COPD type (CMS/HCC) Take 1 Puff by inhalation daily. 30 Each 11 1 Active cloNIDine HCL (CATAPRES) 0.2 mg tablet TAKE 1 TABLET BY MOUTH TWICE DAILY FOR SYSTOLIC BLOOD PRESSURE GREATER THAN 180 OR DIASTOLIC GREATER THAN 110 180 Tablet 1 1 Active terazosin (HYTRIN) 10 mg capsuleIndication s:Benign hypertension TAKE ONE CAPSULE BY MOUTH AT BEDTIME 90 Capsule 1 1 Active sennosides-docusa te sodium (SENNA-S) 8.6-50 mg tabletIndications :Constipation, unspecified constipation type Take 1 Tablet by mouth 2 times daily. 180 Tablet 1 1 Active bisacodyL (DULCOLAX) 5 mg Delayed Release tabletIndications :Constipation, unspecified constipation type Take 1 Tablet (5 mg) by mouth 1 time daily as needed for Constipation. 90 Tablet 1 1 Active ondansetron (ZOFRAN) 4 mg Tablet Take 1 Tablet (4 mg) by mouth every 8 hours as needed for Nausea/Emesis. 10 Tablet 2 1 Active lisinopriL (PRINIVIL) 20 mg tabletIndications :Benign hypertension TAKE 1 TABLET(20 MG) BY MOUTH DAILY 90 Tablet 1 1 Active pantoprazole (PROTONIX) 40 mg Tablet, Delayed Release (E.C.) TAKE 1 TABLET(40 MG) BY MOUTH DAILY 90 Tablet 1 1 Active isosorbide mononitrate (IMDUR) 60 mg Extended Release 24 hour tabletIndications :Benign hypertension TAKE 1 TABLET(60 MG) BY MOUTH DAILY 90 Tablet 1 1 Active spironolactone (ALDACTONE) 50 mg tabletIndications :ESRD on hemodialysis (CMS/HCC),Benign hypertension Take 1 Tablet (50 mg) by mouth daily. 90 Tablet 1 1 Active carvediloL (COREG) 25 mg tabletIndications :Benign hypertension TAKE 1 TABLET(25 MG) BY MOUTH TWICE DAILY WITH MEALS 180 Tablet 1 1 Active minoxidiL (LONITEN) 2.5 mg tabletIndications :Benign hypertension TAKE 8 TABLETS BY MOUTH TWICE DAILY 480 Tablet 1 Active amLODIPine (NORVASC) 10 mg tablet Refill(s) 0 9 Active albuterol HFA 90 mcg inhaler 2 puff, Inhalation, QID, as needed for wheezing, Refill(s) 0 8 Active HYDROcodone-aceta minophen (NORCO) 5-325 mg tabletIndications :Neuroforaminal stenosis of lumbar spine,Chronic bilateral low back pain with bilateral sciatica Take 1 Tablet by mouth every 8 hours as needed for Pain, Moderate. Max Daily Amount: 3 Tablets 21 Tablet 1 Active cyclobenzaprine (FLEXERIL) 5 mg TabletIndications :Neuroforaminal stenosis of lumbar spine,Chronic bilateral low back pain with bilateral sciatica Take 1 Tablet (5 mg) by mouth 2 times daily as needed for Spasm. Use with caution, may cause drowsiness 30 Tablet 1 Active apixaban (Eliquis) 5 mg tablet Take by mouth 2 times daily. Active Active Problems Problem Noted Date Diagnosed Date Chronic pulmonary embolism 10/11/2020 Cirrhosis of liver with ascites 10/09/2020 Neuroforaminal stenosis of lumbar spine 10/10/19 Bilateral renal artery stenosis 10/09/2020 Medical non-compliance 10/09/2020 COPD (chronic obstructive pulmonary disease) Chronic bilateral low back pain with bilateral s ciatica 05/25/2020 Gastroesophageal reflux disease without esophagi tis 05/25/2020 Constipation 05/25/2020 Pars defect with spondylolisthesis 05/23/2020 Recurrent major depressive disorder, in partial remission 05/23/2020 ESRD on hemodialysis 04/05/2020 Bilateral lower extremity edema 01/17/2018 Focal segmental glomerulosclerosis 01/17/2018 Proteinuria 01/17/2018 Protein-calorie malnutrition, moderate 8 Perinephric hematoma 12/09/2017 Chronic pain of left knee 10/22/2016 Instability of left knee joint 10/22/2016 Cigarette dependence 03/19/2016 Benign hypertension 12/06/2014 Resolved Problems Problem Noted Date Diagnosed Date Resolved Date ESRD on peritoneal dialysis 04/06/2020 05/25/2020 ALIVIA (acute kidney injury) 01/17/2018 CKD (chronic kidney disease) stage 4, GFR 15-29 ml/min 12/17/2017 04/05/2020 Immunizations Immunization Administration Dates Next Due (ADACEL/BOOSTRIX)(10 YR UP) TDAP VACCINE, 0.5ML, IM 03/11/2017,07/15/2016,09/10/2015 (PNEUMOVAX 23)(50 YRS UP) PN EUMOCOCCAL POLYSACCHARIDE (PPV23) 0.5 ML, IM 12/10/2017 Family History Medical History Relation Name Comments Healthy Mother Relation Name Status Comments Mother Alive Social History Tobacco Use Types Packs/Day Years Used Date Smoking Tobacco: Every Day Cigarettes 0.3 10 Smokeless Tobacco: Never Tobacco Cessation:Ready to Q uit: No; Counseling Given: No Comments:5 cigs/day Alcohol Use Standard Drinks/Week Comments No [...] of Transportation (Non-Medical) Not on file 05/29/2020 Sex and Gender Information Value Date Recorded Sex Assigned at Not on file Legal Sex Male 10:56 PM CDT Gender Identity Not on file Sexual Orientation Not on file Last Filed Vital Signs Vital Sign Reading Time Taken Comments Blood Pressure 170/110 10/16/2020 11:49 AM CDT Pulse 96 10/16/2020 11:49 AM CDT Temperature 37 C (98.6 F) 10/16/2020 11:49 AM CDT Respiratory Rate 16 10/16/2020 11:49 AM CDT Oxygen Saturation 96% 10/16/2020 11:49 AM CDT Inhaled Oxygen Concentration - - Weight 85.3 kg (188 lb) 10/16/2020 11:49 AM CDT Height 185.4 cm (6' 1 ) 10/16/2020 11:49 AM CDT Body Mass Index 24.8 10/16/2020 11:49 AM CDT Plan of Treatment Health Maintenance Due Date Last Done Comments Pre-Diabetes and Diabetes Screening 1982 HEPATITIS B VACCINES (1 of 3 - Risk Dialysis 4-dose series) 2002 Traditional Medicare (O) Annual Wellness Visit 05/30/2021 05/29/2020 INFLUENZA VACCINE (#1) 2023 , 04/05/2020, 07/08/2018 DTAP/TDAP/TD VACCINES (4 - Td or Tdap) 03/11/2027 03/11/2017, 07/15/2016, 09/10/2015 HPV VACCINES Aged Out No longer eligi ble based on patient's age to complete this topic Medical Devices Implanted Type Area Meteorology Teacher Device Identifier Shelf Expiration Date Model / Serial / Lot Cath Dyls Glidepath 23cm [id number] Implanted:Qty : 1 on 07/26/2018 by Miguel Monzon MD Catheter Right: Chest CR [employer] 08/02/2019 [id number] / / [id number] Insurance MEDICAID [place] MEDICARE PART A AND B Advance Directives For more information, please contact: [phone] * Full Code (Latest Code Status on File) Date Activated Date Inactivated Comments 01/17/2018 7:14 AM 01/19/2018 4:38 PM * Full Code Date Activated Date Inactivated Comments 12/09/2017 5:16 PM 12/10/2017 5:45 PM Care Teams Power Line Installer And Repairer Relationship Specialty Start Date End Date Mal Junior MD [address] [facility] [address] [place] [id number] PCP - General Family Practice 12/10/17
--- OUTSIDE RECORDS SUMMARY | 2024-10-30 20:30 | XMS_ITS | Encounter Summary ---
Author Organization [facility] Address [address] [place] [address] Care Team Providers Care Customer Service And Sales Consultant Name Role Phone Delio Salazar MD Primary Care Provider + Encounter Details Date Type Department Care Team (Late st Contact Info) Description 09/19/2024 Results Follow-Up [facility] Emergency Medicine [address] [place] [address] Vivian Motta, RN BLOOD CULTURE, BLOOD CULTURE Social History Tobacco Use Types Packs/Day Years [...] file 05/29/2020 Feeling Safe Answer Date Recorded Are you in a relationship wi th someone who hurts you emotionally and/or physically? No 09/17/2024 Food Insecurity Answer Date Recorded Patient needs follow up regardin 08/30/2024 Transportation Needs Answer Date Record ed Patient needs follow up regardin 09/01/2024 Housing Stability Answer Date Recorded Social/Environmental Concerns No concerns Utility Needs Answer Date Recorded Patient needs follow up regardin 08/30/2024 Sex and Gender Information Value Date Recorded Sex Assigned at Not on file Legal Sex Male 7:[address] Gender Identity Not on file Sexual Orientation Not on file documented as of this encounter Plan of Treatment Upcoming Encounters Date Type Department Care Team (Late st Contact Info) Description 12/21/2024 11:45 AM CDT Office Visit [facility] Supportive Care [facility] [address] [place] [id number] Emerita Urban ANP [address] [place] [id number] 12/21/2024 2:20 PM CDT Office Visit [facility] [address] [facility] [address] [place] [address] Brittani Mcdonnell, CAROL [address] [facility] [address] [place] [address] documented as of this encounter Visit Diagnoses Not on filedocumented in this encounter Additional Health Concerns Infection Onset Date Last Indicated Resolved Time R/O COVID-19 10/09/2024 10/09/2024 10/09/2024 12:5 7 AM CDT documented as of this encounter Care Teams Customer Service And Sales Consultant Relationship Specialty Start Date End Date Delio Salazar MD [address] [place] [phone] PCP - General Family Practice 01/30/24 documented as of this encounter
--- OUTSIDE RECORDS SUMMARY | 2024-10-30 20:30 | XMS_ITS | Encounter Summary ---
Author Organization [facility] Address [address] [place] [address] Care Team Providers Care Under Cutting Machine Operator Name Role Phone Mal Junior MD Primary Care Provider [phone] Reason for Referral * Outpatient Services (Routine) - Closed Specialty Diagnoses / Procedures Referred By Liz santana Referred To Contact Diagnoses CKD (chronic kidney disease), stage IV (CMS/HCC) Essential hypertension, benign Procedures US BIOPSY ABDOMEN Hank Cruz MD Referral ID Status Reason Start Date Expiration Date Visits Re quested Visits Authorized [id number] Closed 12/01/2017 01/01/2019 1 1 Encounter Details Date Type Department Care Team (Latest Contact Info) Description 12/01/2017 Ancillary Orders [facility] Ultrasound [address] [place] [phone] Hank Cruz MD NO ADDRESS ON FILE CKD (chronic kidney disease), stage IV (CMS/HCC); Essential hypertension, benign Social History Tobacco Use Types Packs/Day Years Used Date Smoking Tobacco: Every Day Cigarettes 0.5 10 Smokeless Tobacco: Never Alcohol Use Standard Drinks/Week Comments No 0 (1 standard drink = 0.6 oz pur e alcohol) Sex and Gender Information Value Date Recorded Sex Assigned at Not on file Legal Sex Male 10:56 PM CDT Gender Identity Not on file Sexual Orientation Not on file documented as of this encounter Plan of Treatment Not on file documented as of this encounter Results * US BIOPSY ABDOMEN (12/09/2017 2:53 PM CDT) Anatomical Region Laterality Modality Abdomen Ultrasound 12/09/2017 2:53 PM CDT Impressions 12/09/2017 6:31 PM CDT IMPRESSION: Please see below. Exam: Ultrasound guided right renal biopsy for glomeruli Date/Time of Exam: 12/09/2017 2:53 PM Reason For Exam: This is a 37-year-old male with difficult to control hypertension and renal insufficiency.. Findings: The procedure and its risks and complications were explained to the patient and written consent was obtained. Monitored IV conscious sedation was performed. The patient was placed prone on the ultrasound gurney. Renal ultrasound was performed in the lower pole the right kidney was chosen for biopsy. It is noted that the renal cortices are moderately hyperechoic. Following sterile preparation, drape, and adequate local anesthesia, real-time ultrasound guidance was utilized to direct a 17-gauge introducer needle to the lower pole of the right kidney. Through this an 18-gauge biopsy gun was advanced and 4 core biopsy samples were obtained and submitted to pathology in saline. Preliminary microscopic evaluation indicated sufficient numbers of glomeruli for electron microscopy. The needle was removed. No immediate convocations were encountered. Blood loss was negligible. IMPRESSION: Right renal biopsy for glomeruli. Narrative Procedure Note Miguel Monzon MD - 12/09/2017 IMPRESSION: Please see below. Exam: Ultrasound guided right renal biopsy for glomeruli Date/Time of Exam: 12/09/2017 2:53 PM Reason For Exam: This is a 37-year-old male with difficult to control hypertension and renal insufficiency.. Findings: The procedure and its risks and complications were explained to the patient and written consent was obtained. Monitored IV conscious sedation was performed. The patient was placed prone on the ultrasound gurney. Renal ultrasound was performed in the lower pole the right kidney was chosen for biopsy. It is noted that the renal cortices are moderately hyperechoic. Following sterile preparation, drape, and adequate local anesthesia, real-time ultrasound guidance was utilized to direct a 17-gauge introducer needle to the lower pole of the right kidney. Through this an 18-gauge biopsy gun was advanced and 4 core biopsy samples were obtained and submitted to pathology in saline. Preliminary microscopic evaluation indicated sufficient numbers of glomeruli for electron microscopy. The needle was removed. No immediate convocations were encountered. Blood loss was negligible. IMPRESSION: Right renal biopsy for glomeruli. 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
--- OUTSIDE RECORDS SUMMARY | 2024-10-30 20:30 | XMS_ITS | Encounter Summary ---
Author Organization [facility] Address [address] [place] [address] Care Team Providers Care Sterile Processing Technician Name Role Phone Mal Junior MD Primary Care Provider [phone] [phone] Reason for Referral * Radiology Services (Routine) - Closed Specialty Diagnoses / Procedures Referred By Liz t Referred To Contact Radiology Diagnoses Chronic kidney disease, stage V (CMS/HCC) Procedures IR VENOUS ACCESS Hank Cruz MD [facility] Interventional Radiology [address] [place] [address] Phone: tel: fax: Referral ID Status Reason Start Date Expiration Date Visits Re quested Visits Authorized [id number] Closed 07/22/2018 08/22/2019 1 1 Encounter Details Date Type Department Care Team (Latest Contact Info) Description 07/22/2018 Ancillary Orders [facility] Interventional Radiology [address] [facility] [address] [place] [address] Hank Cruz MD NO ADDRESS ON FILE Chronic kidney disease, stage V (CMS/HCC) Social History Tobacco Use Types Packs/Day Years Used Date Smoking Tobacco: Every Day Cigarettes 0.3 10 Smokeless Tobacco: Never Comments:5 cigs/day Alcohol Use Standard Drinks/Week Comments [...] documented as of this encounter Results * IR VENOUS ACCESS (07/26/2018 10:08 AM CDT) Anatomical Region Laterality Modality X-Ray Angiograph y 07/26/2018 10:0 9 AM CDT Impressions 07/26/2018 1:51 PM CDT IMPRESSION: Please see below. Exam: Tunneled dialysis catheter insertion Date/Time of Exam: 07/26/2018 10:08 AM Reason For Exam: See Diagnosis. Diagnosis: Chronic kidney disease, stage V. Findings: The procedure and its risks and complications were explained to the patient and written consent was obtained. Monitored IV conscious sedation was performed. Following sterile preparation, drape, and adequate local anesthesia, real-time ultrasound guidance was utilized to puncture the patent right internal jugular vein. A hardcopy ultrasound image was performed for documentation. A J guidewire was advanced under fluoroscopic guidance into the IVC. A 5 Trinidadian dilator was placed over the guidewire to maintain access. Subsequently lidocaine 1% with epinephrine was used to anesthetize the anterior right chest wall. A stab wound was made and a GlidePath catheter was tunneled subcutaneously to the venous access site. The 5 Trinidadian dilator was replaced over the guidewire with a peel-away sheath. The catheter was inserted and its tip positioned in the right atrium of the heart. The peel-away sheath was removed. Both ports of the catheter proved to flush and aspirate freely with saline. The hub of the catheter was anchored to the skin using 2-0 nylon suture material. Estimated blood loss was minimal. IMPRESSION: Tunneled dialysis catheter insertion. Narrative Procedure Note Migule Monzon MD - 07/26/2018 IMPRESSION: Please see below. Exam: Tunneled dialysis catheter insertion Date/Time of Exam: 07/26/2018 10:08 AM Reason For Exam: See Diagnosis. Diagnosis: Chronic kidney disease, stage V. Findings: The procedure and its risks and complications were explained to the patient and written consent was obtained. Monitored IV conscious sedation was performed. Following sterile preparation, drape, and adequate local anesthesia, real-time ultrasound guidance was utilized to puncture the patent right internal jugular vein. A hardcopy ultrasound image was performed for documentation. A J guidewire was advanced under fluoroscopic guidance into the IVC. A 5 Trinidadian dilator was placed over the guidewire to maintain access. Subsequently lidocaine 1% with epinephrine was used to anesthetize the anterior right chest wall. A stab wound was made and a GlidePath catheter was tunneled subcutaneously to the venous access site. The 5 Trinidadian dilator was replaced over the guidewire with a peel-away sheath. The catheter was inserted and its tip positioned in the right atrium of the heart. The peel-away sheath was removed. Both ports of the catheter proved to flush and aspirate freely with saline. The hub of the catheter was anchored to the skin using 2-0 nylon suture material. Estimated blood loss was minimal. IMPRESSION: Tunneled dialysis catheter insertion. 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
--- NOTE | 2024-10-30 20:45 | XRR_ITS ---
PROCEDURE INFORMATION: Exam: XR Chest Exam date and time: 10/30/2024 8:59 PM Age: 44 years old Clinical indication: Shortness of breath; Additional info: SOB TECHNIQUE: Imaging protocol: Radiologic exam of the chest. Views: 1 view. COMPARISON: CR (CHEST, ) 09/18/2024 6:19 PM FINDINGS: Lungs: Diffuse bilateral lung central interstitial coarsening. Central vascular congestion. Pleural spaces: Unremarkable. No pleural effusion. No pneumothorax. Heart/Mediastinum: Unchanged cardiomegaly. Bones/joints: Unremarkable. XR/XR chest 1V portable [id number] IMPRESSION: Unchanged cardiomegaly. CHF with pulmonary edema.
[2024-10-30 20:55] LABS: Hematocrit 31.8 % (37-53); Hemoglobin 9.90 g/dL (11.27-16.99); Mean Corpuscular HGB Conc 31.1 g/dL (30-55); Mean Corpuscular Hemoglobin 27.0 pg (27-33); Mean Corpuscular Volume 86.6 fl (82-101); Nucleated Red Blood Cells % 0 %; Platelet Count 225 10^3/cmm (157-399); Red Blood Count 3.67 10^6/uL (3.85-5.65); White Blood Count 3.42 10^3/uL (3.29-11.43)
[2024-10-30] MEDS: methylPREDNISolone sod succ 125 mg/2 mL INJ 80 MG IVP (20:57)
--- NOTE | 2024-10-30 21:07 | ED_ITS ---
HPI - SOB/Dyspnea 2 General: Chief Complaint: Shortness of Breath/Dyspnea Stated Complaint: SOB Time Seen by Provider: 10/30/24 20:24 History of Present Illness: HPI Narrative: 44-year-old male patient with end-stage renal disease on dialysis. He presents with shortness of breath, cough. No fever. Some increased leg swelling. He had dialysis yesterday. He notes that he was not the short of breath yesterday, but began to get shortness of breath overnight last night. Worsened across the day today. Minimal to no sputum production. Chest discomfort only with cough. He continues to complain of chronic groin pain as well. Related Data Home Medications ?Medication ?Instructions ?Recorded ?Confirmed ferric citrate 210 mg iron tablet 210 mg PO TID 10/21/24 (Auryxia) aspirin 81 mg tablet,delayed 81 mg PO BEDTIME 02/21/22 10/21/24 release vit B,C-folic ac 800 mcg-zinc 12.5 1 tab PO QAM 10/21/24 mg-selen-D3 2,000 unit-vit E tablet (RenaPlex-D) carvedilol 25 mg tablet 37.5 mg PO Q12H 01/09/23 minoxidil 2.5 mg tablet 10 mg PO TID 05/16/24 sevelamer carbonate 800 mg tablet 1,600 mg PO TID 05/0410/21/24 albuterol sulfate 90 mcg/actuation 1 puff inhalation Q 6H PRN 09/19/24 10/21/24 aerosol inhaler Shortness Of Breath umeclidinium 62.5 mcg/actuation 1 inh inhalation DAILY 09/19/24 10/21/24 blister powder for inhalation (Incruse Ellipta) hydromorphone 2 mg tablet 2 mg PO Q4H PRN Pain 5 10/21/24 sulfamethoxazole 400 40 - 80 tab PO QMWF 09/30/24 10/21/24 mg-trimethoprim 80 mg tablet Allergies Allergy/AdvReac Type Severity Reaction Status Date / Time spironolactone Allergy Intermediate facial Verified 10/21/24 08:13 swelling nifedipine Allergy Unknown ALGY-Swell Verified 10/21/24 08:13 Lip/Tongue/Throat haloperidol (From Haldol) Allergy ADR-Irritab Verified 10/21/24 08:13 le ketorolac Allergy Unknown Verified 10/21/24 08:13 lisinopril Allergy ADR-Swelling Verified 10/21/24 08:13 of the Eye [facility] ED 2 [facility]: Medical History (Updated 10/31/24 @ 02:56 by Saurabh Mann MD) Abdominal ascites history of intermittent paracentesis, transudative fluid; prior work up has included negative biopsy, ceruloplasmin level normal, low iron, high ferritin, normal TIBC, negative HIV, hepatitis panel negative, JESÚS/SCL 70/double-stranded DNA antibodies negative, Alpha-fetoprotein level unremarkable, nonalcoholic by history, has hepatomegaly and splenomegaly Cirrhosis of liver Epididymitis 06/2022 Dyslipidemia History of home oxygen therapy COPD (chronic obstructive pulmonary disease) Patient under care of multiple providers Umbilical hernia Atherosclerosis of coronary artery Stent and balloon angioplasty to proximal 1 OM branch Congestive heart failure preserved ejection fraction History of cardiovascular stress test 07/2022 at [facility] perfusion imaging probably normal, no reversible defects, small fixed defect in apical anterior wall, EF 54%, nonischemic response to stress by EKG criteria Depression Pulmonary hypertension Uses bilevel positive airway pressure (BPAP) ventilation at home History of coronary angiogram 11/2021 - patent stent Inguinal hernia Chronic respiratory failure on home oxygen and bipap Nicotine dependence, cigarettes, with other nicotine-induced disorders Generalized anxiety disorder with panic attacks ESRD on dialysis Chronic abdominal pain COVID 05/25 Hypertensive emergency recurrent episodes Urethral stricture Pulmonary embolism 09/21 CTA inconclusive for very tiny peripheral LEFT lower lobe pulmonary artery sub segmental emboli versus poor opacification. Anemia chronic kidney disease Arteriovenous fistula for hemodialysis in place, secondary Degenerative disc disease, lumbar Hypertension uncontrolled Surgical History History of arteriovenous graft left upper extremity fistula, revision 07/2024 in [place] Stented coronary artery H/O hand surgery Amputation right 2&3 fingers 2017 History of adenoidectomy Family History Other Hypertension Social History (Updated 10/31/24 @ 02:53 by Saurabh Mann MD) Smoking and tobacco/nicotine status: current every day tobacco/nicotine user cigarettes Years cigarettes smoked: 21 Number of cigarettes per day: 1-5 [ Other cigarette details: started age 20, currently 0.5ppd ] Quit status (tobacco/nicotine): considering quitting Alcohol intake: never Substance/Drug Use: never Additional social history: Lives with his mother his sister and one of his kids. Patient wants full CODE STATUS as discussed on 10/31/2024 Household members: family Number of children: 3 Current occupational status: disabled Do you think of yourself as: Straight/Heterosexual Physical Exam 2 Const: GENERAL APPEARANCE: cooperative and ill appearing O RIENTATION/CONSCIOUSNESS: Yes awake, Yes oriented to person, Yes oriented to place and Yes oriented to time HENMT: COMMON NORMALS: normocephalic and atraumatic HEAD & SCALP: n ormocephalic and atraumatic FACE & SINUS: face symmetric Eye: COMMON NORMALS: Equal, round and reactive pupils present and EOMs intact bilaterally PUPIL: Yes Equal, round and reactive pupils present Neck/C-Spine: GENERAL: Yes trachea midline Chest: CHEST: Yes Symmetrical chest wall rise Resp: EFFORT & INSPECTION: Yes tachypneic and Yes labored AUSCULTATION: r ales and wheezes Cardio: COMMON NORMALS: regular rate and regular rhythm RATE: regular rate RHYTHM: regular rhythm GI: INSPECTION: Yes Abdominal wall edema and Yes abdominal distension P ALPATION: Yes Firmness to palpation present (GI) and No Guarding due to palpation present (GI) Extremity: NARRATIVE EXTREMITY EXAM: Bilateral pitting edema Neuro: SENSORIUM/ORIENTATION: Yes oriented to person, Yes oriented to place and Yes oriented to time Course 2 Vital Signs: Vital signs: Vital Signs Temperature 97.7 F 10/30/24 20:22 Pulse Rate 68 10/31/24 01:00 Respiratory Rate 18 10/31/24 00:02 Blood Pressure 156/99 10/31/24 01:00 Pulse Oximetry 99 10/31/24 01:00 Oxygen Delivery Me thod Oxymask 10/31/24 01:32 Oxygen Flow Rate 4 10/31/24 00:02 MDM - SOB/Dyspnea Medical Decision Making 44-year-old male well-known to the emergency department service. He is somewhat improved after 2 DuoNeb treatments, Solu-Medrol. Sugar was low initially, stabilized now. He is hungry and wanting to eat. Still breathing on OxyMask. Oxygen saturations 92%. Blood pressure is now 156/99. He has dialysis scheduled on Thursday. Chest x-ray shows pulmonary edema. Electrolytes are stable. Creatinine is 3.5. With pulmonary edema on chest x-ray, shortness of breath requiring oxygen, he will likely not make it until Thursday for dialysis. Will admit, for dialysis tomorrow. Spoke with hospitalist who agrees. Will consult nephrology in the morning. Lab Data 10/30/24 20:40 10/30/24 20:40 Labs/Radiology: Radiology Impressions Chest X-Ray 10/30/24 20:45 IMPRESSION: Unchanged cardiomegaly. CHF with pulmonary edema. Laboratory Results WBC 3.42 10^3/uL (3.29-11.43) 10/30/24 20:40 RBC 3.67 10^6/uL (3.85-5.65) L 10/30/24 20:40 Hgb 9.90 g/dL (11.27-16.99) L 10/30/24 20:40 Hct 31.8 % (37-53) L 10/30/24 20:40 MCV 86.6 fl (82-101) 10/30/24 20:40 MCH 27.0 pg (27-33) 10/30/24 20:40 MCHC 31.1 g/dL (30-55) 10/30/24 20:40 RDW 17.7 % (12.1-15.1) H 10/30/24 20:40 Plt Count 225 10^3/cmm (157-399) 10/30/24 20:40 MPV 9.8 fL (7.4-10.4) 10/30/24 20:40 Neut % (Auto) 58.8 % 10/30/24 20:40 Lymph % (Auto) 20.2 % 10/30/24 20:40 [place] % (Auto) 9.9 % 10/30/24 20:40 Eos % (Auto) 8.8 % 10/30/24 20:40 Baso % (Auto) 2.3 % 10/30/24 20:40 Neut # (Auto) 2.01 10^3/uL (1.8-7.7) 10/30/24 20:40 Lymph # (Auto) 0.7 10^3/uL (0.8-4.8) L 10/30/24 20:40 [place] # (Auto) 0.3 10^3/uL (0.2-0.9) 10/30/24 20:40 Eos # (Auto) 0.3 10^3/uL (0.0-0.8) 10/30/24 20:40 Baso # (Auto) 0.1 10^3/uL (0.0-0.1) 10/30/24 20:40 Nucleated RBC % (auto) 0 % 10/30/24 20:40 Nucleated RBCs # 0.0 /100WBC 10/30/24 20:40 Sodium 134 mmol/L (136-145) L 10/30/24 20:40 Potassium 4.4 mmol/L (3.5-5.1) 10/30/24 20:40 Chloride 99 mmol/L (98-107) 10/30/24 20:40 Carbon Dioxide 26 mmol/L (22-29) 10/30/24 20:40 Anion Gap 13.4 (5-19) 10/30/24 20:40 BUN 10 mg/dL (6-20) 10/30/24 20:40 Creatinine 3.5 mg/dL (0.7-1.2) H 10/30/24 20:40 GFR Calculation 19.3 mL/min (90-130) L 10/30/24 20:40 Glucose 54 mg/dL (65-115) L 10/30/24 20:40 POC Glucose 80 mg/dL (70-110) 10/31/24 00:02 Calculated Osmolality 275 mOsm/kg (285-295) L 10/30/24 20:40 Lactic Acid 0.6 mmol/L (0.5-2.2) 10/30/24 20:40 Calcium 11.0 mg/dL (8.5-10.5) H 10/30/24 20:40 Phosphorus 4.9 mg/dL (2.5-4.5) H 10/30/24 20:40 Magnesium 2.1 mg/dL (1.7-2.3) 10/30/24 20:40 Total Bilirubin 0.4 mg/dL (0.15-1.2) 10/30/24 20:40 AST 12 U/L (0-40) 10/30/24 20:40 ALT < 5 U/L (0-41) 10/30/24 20:40 Alkaline Phosphatase 134 U/L (40-130) H 10/30/24 20:40 C-Reactive Protein 52.7 mg/L (0.0-4.9) H 10/30/24 20:40 Total Protein 6.8 g/dL (6.6-8.7) 10/30/24 20:40 Albumin 2.4 g/dL (3.5-5.2) L 10/30/24 20:40 Globulin 4.4 g/dL (1.3-4.6) 10/30/24 20:40 All radiology interpretation(s) finalized by discharge Discharge Plan Discharge Patient Disposition: Admitted As Inpatient Admit Provider: Saurabh Mann Clinical Impression: Pulmonary edema, ESRD (end stage renal disease) on dialysis Condition: Stable Coding Level of Care Code ED [employer] Manager for Cristi Diane
[2024-10-30 21:13] LABS: Lactic Sepsis W/Reflex 0.6 mmol/L (0.5-2.2)
[2024-10-30 21:14] LABS: Alanine Aminotransferase < 5 U/L (0-41); Albumin Level 2.4 g/dL (3.5-5.2); Alkaline Phosphatase 134 U/L (40-130); Anion Gap 13.4 (5-19); Aspartate Amino Transferase 12 U/L (0-40); Blood Urea Nitrogen 10 mg/dL (6-20); Calcium 11.0 mg/dL (8.5-10.5); Carbon Dioxide 26 mmol/L (22-29); Chloride 99 mmol/L (98-107); Creatinine Clr Calc Pharmacy 32.3318; Globulin 4.4 g/dL (1.3-4.6); Glucose 54 mg/dL (65-115); Magnesium 2.1 mg/dL (1.7-2.3); Osmolality Calculated 275 mOsm/kg (285-295); Potassium 4.4 mmol/L (3.5-5.1); Sodium 134 mmol/L (136-145); Total Protein 6.8 g/dL (6.6-8.7)
[2024-10-30] MEDS: ondansetron 2 mg/ML SDV 2 mL 4 MG IVP (21:21)
[2024-10-30] MEDS: morphine 4 mg/mL SDV 1 mL IVP (21:22)
[2024-10-31] VITALS (26 sets, daily range): BP systolic 122–156; BP diastolic 62–99; PULSE 64–79; RESP 16–18; TEMP 36.2–36.8; O2SAT 92–99
[2024-10-31] MEDS: morphine 4 mg/mL SDV 1 mL IVP (01:07)
--- NOTE | 2024-10-31 02:46 | PM.HP ---
Providers/Chief Complaint Admitting Physician: Saurabh Mann MD Primary Care Provider: Delio Salazar MD Chief Complaint: SOB History of Present Illness Mal Gibbs is a 44 year old male with end-stage liver disease and end-stage kidney disease receiving dialysis 3 days a week last performed Thursday patient states he was orthopneic and dyspneic today. He was seen in the emergency department with pulmonary vascular congestion and LV enlargement by chest x-ray. He is referred for admission for in hospital dialysis. Notably the patient also has end-stage liver disease receiving paracentesis often i.e. August 23, 2024 had 4500 cc drawn off, september 1204/2025 had 5750 cc drawn off on September 19, 2024 4000 cc and most recently October 03, 2024 3200 cc drawn off. Patient states his blood pressure does sometimes go low during dialysis but he thinks they have not had trouble getting fluid off. Patient tells me he is on a fluid restriction and says he drinks under 32 ounces a day. For insensible losses this does not totally make sense because he is gaining about a kilogram a day. Review of Systems Narrative: General weight is up and down with dialysis and fluid intake Cardiovascular no chest pain no history of coronary disease Respiratory has had some shortness of breath and cough productive of brown and yellow phlegm. He is trying to quit smoking down to 4 to 5 cigarettes a day GI positive for nausea vomiting last Thursday no blood does not make any urine for 6 years Neuro no seizures or stroke symptoms Hematologic he has had a blood clot in the right leg before was on anticoagulation for a year Malignancy history negative Medications/Allergies Home Medications ?Medication ?Instructions ?Recorded ?Confirmed ?Last Taken ?Type ferric citrate 210 mg iron tablet 210 mg PO TID 11/03/21 10/21/24 10/13/24 History (Auryxia) aspirin 81 mg tablet,delayed 81 mg PO BEDTIME 02/21/22 10/21/24 10/13/24 History release vit B,C-folic ac 800 mcg-zinc 12.5 1 tab PO QAM 10/01/22 10/21/24 10/13/24 History mg-selen-D3 2,000 unit-vit E tablet (RenaPlex-D) carvedilol 25 mg tablet 37.5 mg PO Q12H 01/09/23 10/21/24 10/13/24 History minoxidil 2.5 mg tablet 10 mg PO TID 05/16/24 10/21/24 10/13/24 History sevelamer carbonate 800 mg tablet 1,600 mg PO TID 05/16/24 10/21/24 10/13/24 History albuterol sulfate 90 mcg/actuation 1 puff inhalation Q6H PRN 09/19/24 10/21/24 10/03/24 History aerosol inhaler Shortness Of Breath umeclidinium 62.5 mcg/actuation 1 inh inhalation DAILY 09/19/24 10/21/24 10/13/24 History blister powder for inhalation (Incruse Ellipta) hydromorphone 2 mg tablet 2 mg PO Q4H PRN Pain 09/30/24 10/21/24 10/03/24 History sulfamethoxazole 400 40 - 80 tab PO QMWF 09/30/24 10/21/24 10/12/24 History mg-trimethoprim 80 mg tablet Allergies Allergy/AdvReac Type Severity Reaction Status Date / Time spironolactone Allergy Intermediate facial Verified 10/21/24 08:13 swelling nifedipine Allergy Unknown ALGY-Swell Verified 10/21/24 08:13 Lip/Tongue/Throat haloperidol (From Haldol) Allergy ADR-Irritab Verified 10/21/24 08:13 le ketorolac Allergy Unknown Verified 10/21/24 08:13 lisinopril Allergy ADR-Swelling Verified 10/21/24 08:13 of the Eye PFSH Acute PFSH: Medical History (Updated 10/31/24 @ 02:56 by Saurabh Mann MD) Abdominal ascites history of intermittent paracentesis, transudative fluid; prior work up has included negative biopsy, ceruloplasmin level normal, low iron, high ferritin, normal TIBC, negative HIV, hepatitis panel negative, JESÚS/SCL 70/double-stranded DNA antibodies negative, Alpha-fetoprotein level unremarkable, nonalcoholic by history, has hepatomegaly and splenomegaly Cirrhosis of liver Epididymitis 06/2022 Dyslipidemia History of home oxygen therapy COPD (chronic obstructive pulmonary disease) Patient under care of multiple providers Umbilical hernia Atherosclerosis of coronary artery Stent and balloon angioplasty to proximal 1 OM branch Congestive heart failure preserved ejection fraction History of cardiovascular stress test 07/2022 at [facility] perfusion imaging probably normal, no reversible defects, small fixed defect in apical anterior wall, EF 54%, nonischemic response to stress by EKG criteria Depression Pulmonary hypertension Uses bilevel positive airway pressure (BPAP) ventilation at home History of coronary angiogram 11/2021 - patent stent Inguinal hernia Chronic respiratory failure on home oxygen and bipap Nicotine dependence, cigarettes, with other nicotine-induced disorders Generalized anxiety disorder with panic attacks ESRD on dialysis Chronic abdominal pain COVID 05/25 Hypertensive emergency recurrent episodes Urethral stricture Pulmonary embolism 09/21 CTA inconclusive for very tiny peripheral LEFT lower lobe pulmonary artery sub segmental emboli versus poor opacification. Anemia chronic kidney disease Arteriovenous fistula for hemodialysis in place, secondary Degenerative disc disease, lumbar Hypertension uncontrolled Surgical History History of arteriovenous graft left upper extremity fistula, revision 07/2024 in [place] Stented coronary artery H/O hand surgery Amputation right 2&3 fingers 2017 History of adenoidectomy Family History Other Hypertension Social History (Updated 10/31/24 @ 02:53 by Saurabh Mann MD) Smoking and tobacco/nicotine status: current every day tobacco/nicotine user cigarettes Years cigarettes smoked: 21 Number of cigarettes per day: 1-5 [ Other cigarette details: started age 20, currently 0.5ppd ] Quit status (tobacco/nicotine): considering quitting Alcohol intake: never Substance/Drug Use: never Additional social history: Lives with his mother his sister and one of his kids. Patient wants full CODE STATUS as discussed on 10/31/2024 Household members: family Number of children: 3 Current occupational status: disabled Do you think of yourself as: Straight/Heterosexual Vitals/I&O/Wt Last Vital Signs Temp 97.7 F 10/30/24 20:22 Pulse 68 10/31/24 01:00 Resp 18 10/31/24 00:02 BP 156/99 10/31/24 01:00 Pulse Ox 99 10/31/24 01:00 O2 Del Method Oxymask 10/31/24 01:32 O2 Flow Rate 4 10/31/24 00:02 10/30/24 10/30/24 10/31/24 14:59 22:59 06:59 Intake Total 250 / 250 Balance 250 / 250 Weight last 48 hrs Weight 87.997 kg Weight 87.997 kg Physical Exam Narrative: General well-developed chronically ill-appearing male in no acute cardiopulmonary distress he has protuberant abdomen and a pallor but not jaundice CV regular rate and rhythm with a 4/6 systolic ejection murmur best heard at the right upper sternal border Lungs basilar crackles poor air movement in the mid lung cantu clear in the upper lung cantu Abdomen diminished bowel sounds he has a umbilical hernia not strangulated he has a fluid wave in the abdomen but is not particularly tender Calves 4+ right lower extremity edema 3+ left lower extremity edema Sclera nonicteric Data 10/30/24 20:40 10/30/24 20:40 Micro: Microbiology 10/30/24 21:46 Blood Culture - Preliminary Blood SPECIMEN COLLECTED 10/30/24 20:40 Blood Culture - Preliminary Blood SPECIMEN COLLECTED A&P Assessment and plan (1) Pulmonary edema: Patient is admitted to hospital with oxy mask and will be referred for consultation with Dr. Betancourt patient patient will need dialysis during this hospitalization (2) ESRD (end stage renal disease) on dialysis: As above patient states he makes no urine (3) Cirrhosis of liver: He has paracentesis ordered by his fine sander in [place]. He is supposed to have his next paracentesis tomorrow (4) Abdominal ascites: As above PDMP PDMP Reviewed: Not Reviewed Attestations Medical Necessity Statement*: Patient is admitted to hospital pulmonary edema and ascites and will undergo dialysis and paracentesis and expected to be hospitalized forGreater than 2 midnights greater than 2 midnights Coding Level of Care Code Acute Code for [facility] Diagnoses Pulmonary edema J81.1 ESRD (end stage renal disease) on dialysis N18.6; Z99.2 Cirrhosis of liver K74.60 Other ascites R18.8 Ascites type: other type Time Spent (min) 55
[2024-10-31] MEDS: HYDROmorphone tab 2 MG TABLET PO ×4 (03:19→22:05)
--- NOTE | 2024-10-31 03:23 | PC.NURSE ---
pt refused heparin shot
--- NOTE | 2024-10-31 09:02 | PM.CONSULT ---
Providers/Reason For Consult Consulting Physician/Specialty*: tona rosario md / telenephrology Reason for Consult*: ESRD care Requesting Physician: DR Aponte and Dr Mann Attending Physician: Bob Gonzalez Primary Care Provider: Delio Salazar MD History of Present Illness History of Present Illness Mal Gibbs is a 44 year old male history of ESRD on dialysis Thursday and Thursday, heart failure preserved EF, pulmonary hypertension, COPD, hypertension, tobacco use, anemia, severe edema ascites anasarca. Patient was last admitted approximately 6 weeks ago with severe volume overload hypertensive urgency. And patient improved with paracentesis and extra dialysis. The patient was admitted last night early this morning with orthopnea and dyspnea volume overload and hypertension. The patient is set for paracentesis today. The patient does not want extra dialysis. He is requesting to have his paracentesis and to go home. He has nausea weakness some abdominal pain and swelling. Review of Systems Narrative: Headaches. Denies visual complaints. Positive shortness of breath positive orthopnea positive dyspnea. Positive leg pains positive abdominal pain and swelling positive edema. Not feeling well. Poor appetite. Positive itching. Positive vomiting Medications/Allergies Home Medications ?Medication ?Instructions ?Recorded ?Confirmed ?Last Taken ?Type ferric citrate 210 mg iron tablet 210 mg PO TID 11/03/21 10/21/24 10/13/24 History (Auryxia) aspirin 81 mg tablet,delayed 81 mg PO BEDTIME 02/21/22 10/21/24 10/13/24 History release vit B,C-folic ac 800 mcg-zinc 12.5 1 tab PO QAM 10/01/22 10/21/24 10/13/24 History mg-selen-D3 2,000 unit-vit E tablet (RenaPlex-D) carvedilol 25 mg tablet 37.5 mg PO Q12H 01/09/23 10/21/24 10/13/24 History minoxidil 2.5 mg tablet 10 mg PO TID 05/16/24 10/21/24 10/13/24 History sevelamer carbonate 800 mg tablet 1,600 mg PO TID 05/16/24 10/21/24 10/13/24 History albuterol sulfate 90 mcg/actuation 1 puff inhalation Q6H PRN 0510/21/24 10/03/24 History aerosol inhaler Shortness Of Breath umeclidinium 62.5 mcg/actuation 1 inh inhalation DAILY 09/19/24 10/21/24 10/13/24 History blister powder for inhalation (Incruse Ellipta) hydromorphone 2 mg tablet 2 mg PO Q4H PRN Pain 09/30/24 10/21/24 10/03/24 History sulfamethoxazole 400 40 - 80 tab PO QMWF 09/30/24 10/21/24 10/12/24 History mg-trimethoprim 80 mg tablet Allergies Allergy/AdvReac Type Severity Reaction Status Date / Time spironolactone Allergy Intermediate facial Verified 10/21/24 08:13 swelling nifedipine Allergy Unknown ALGY-Swell Verified 10/21/24 08:13 Lip/Tongue/Throat haloperidol (From Haldol) Allergy ADR-Irritab Verified 10/21/24 08:13 le ketorolac Allergy Unknown Verified 10/21/24 08:13 lisinopril Allergy ADR-Swelling Verified 10/21/24 08:13 of the Eye Current Medications Generic Name Dose Route Start Last Admin Trade Name Freq PRN Reason Stop Dose Admin Albuterol Sulfate 2.5 mg 10/31/24 03:02 10/31/24 07:10 Albuterol 2.5 Mg/0.5 Ml Neb INHALATION 2.5 mg Q6H.RESP PRN Administration SHORTNESS OF BREATH Heparin Sodium (Porcine) 5,000 unit 10/31/24 02:53 10/31/24 03:20 Heparin 5,000 Unit/Ml Inj 1 Ml SUBCUT Not Given Q12H ARTEM Hydromorphone HCl 2 mg 10/31/24 02:53 10/31/24 03:19 Hydromorphone Tab 2 Mg Tablet PO 2 mg Q4H PRN Administration PAIN Ipratropium [place] 0.5 mg 10/31/24 08:00 10/31/24 07:10 Ipratropium 0.5 Mg/2.5 Ml Neb INHALATION 0.5 mg QID.RESPIRATORY ARTEM Administration PFSH Acute PFSH: Medical History (Updated 10/31/24 @ 02:56 by Saurabh Mann MD) Abdominal ascites history of intermittent paracentesis, transudative fluid; prior work up has included negative biopsy, ceruloplasmin level normal, low iron, high ferritin, normal TIBC, negative HIV, hepatitis panel negative, JESÚS/SCL 70/double-stranded DNA antibodies negative, Alpha-fetoprotein level unremarkable, nonalcoholic by history, has hepatomegaly and splenomegaly Cirrhosis of liver Epididymitis 06/2022 Dyslipidemia History of home oxygen therapy COPD (chronic obstructive pulmonary disease) Patient under care of multiple providers Umbilical hernia Atherosclerosis of coronary artery Stent and balloon angioplasty to proximal 1 OM branch Congestive heart failure preserved ejection fraction History of cardiovascular stress test 07/[address] [facility] perfusion imaging probably normal, no reversible defects, small fixed defect in apical anterior wall, EF 54%, nonischemic response to stress by EKG criteria Depression Pulmonary hypertension Uses bilevel positive airway pressure (BPAP) ventilation at home History of coronary angiogram 11/2021 - patent stent Inguinal hernia Chronic respiratory failure on home oxygen and bipap Nicotine dependence, cigarettes, with other nicotine-induced disorders Generalized anxiety disorder with panic attacks ESRD on dialysis Chronic abdominal pain COVID 05/25 Hypertensive emergency recurrent episodes Urethral stricture Pulmonary embolism 09/21 CTA inconclusive for very tiny peripheral LEFT lower lobe pulmonary artery sub segmental emboli versus poor opacification. Anemia chronic kidney disease Arteriovenous fistula for hemodialysis in place, secondary Degenerative disc disease, lumbar Hypertension uncontrolled Surgical History History of arteriovenous graft left upper extremity fistula, revision 07/2024 in [place] Stented coronary artery H/O hand surgery Amputation right 2&3 fingers 2017 History of adenoidectomy Family History Other Hypertension Social History (Updated 10/31/24 @ 02:53 by Saurabh Mann MD) Smoking and tobacco/nicotine status: current every day tobacco/nicotine user cigarettes Years cigarettes smoked: 21 Number of cigarettes per day: 1-5 [ Other cigarette details: started age 20, currently 0.5ppd ] Quit status (tobacco/nicotine): considering quitting Alcohol intake: never Substance/Drug Use: never Additional social history: Lives with his mother his sister and one of his kids. Patient wants full CODE STATUS as discussed on 10/31/2024 Household members: family Number of children: 3 Current occupational status: disabled Do you think of yourself as: Straight/Heterosexual Vitals/I&O/Wt Last Vital Signs Temp 97.2 F L 10/31/24 07:35 Pulse 72 10/31/24 07:35 Resp 18 10/31/24 07:10 BP 145/79 10/31/24 07:35 Pulse Ox 95 10/31/24 07:35 O2 Del Method Nasal Cannula 10/31/24 07:35 O2 Flow Rate 4 10/31/24 07:35 10/30/24 10/31/24 10/31/24 22:59 06:59 14:59 Intake Total 250 / 250 Output Total 0 / 0 Balance 250 / 250 0 / 250 Weight last 48 hrs Weight 89.811 kg Weight 87.997 kg Weight 87.997 kg Physical Exam Narrative: Vital signs noted and stable. Patient appears ill with muscle wasting temporal wasting. Patient requiring facemask oxygen. HEENT is normocephalic atraumatic. Neck is supple lungs have dull bases and crackles. Heart regular Abdomen soft positive bowel sounds distended positive ascites. Extremities bilateral edema. Left upper extremity AV graft with good thrill and bruit. Neuro awake alert oriented x 3 Data 10/30/24 20:40 10/30/24 20:40 Micro: Microbiology 10/30/24 21:46 Blood Culture - Preliminary Blood SPECIMEN COLLECTED 10/30/24 20:40 Blood Culture - Preliminary Blood SPECIMEN COLLECTED A&P Assessment and plan (1) ESRD (end stage renal disease) on dialysis: 44-year-old gentleman 1. Severe ascites for paracentesis today 2. Volume overload and ESRD- I offered the patient extra dialysis. The patient as of now is not excepting. He is hoping to get dialysis as an outpatient tomorrow and he would like to go home tonight if possible. We left that that we will see how he feels after paracentesis. 3. Hypertension monitor with volume removal With paracentesis. Will also increase volume removal on dialysis. 4. Hemoglobin of 9.9 is good for the patient. Will monitor 5. Mild hyponatremia from ESRD and volume overload Potassium is stable bicarbonate stable. Monitor glucose. 6. Patient has hypercalcemia please ensure he is not taking any calcium or vitamin D analogs as an outpatient. Will check PTH and vitamin D levels. Patient was seen and examined using A/V equipment with the aid of a nurse. The patient consented to telehealth. The patient consents to dialysis on a Thursday schedule. If the patient still is short of breath post paracentesis then he will consent to dialysis today. Plan See above monitor for infection plan for paracentesis today. Hemodialysis if patient accepts. PDMP PDMP Reviewed: Not Reviewed Consult Attestations Medical Necessity Statement: Volume overload, ascites, short of breath, hypercalcemia, ESRD Time Spent in Patient Care: Greater than 35 minutes (>than 50% of time spent in counselling and/or direct pt care on unit). Coding Level of Care Code Acute Code for Chg Fwd Diagnoses ESRD (end stage renal disease) on dialysis N18.6; Z99.2
[2024-10-31] MEDS: b-complex-vitamin c Tablet 1 EACH PO (09:09)
--- NOTE | 2024-10-31 10:00 | US_ITS ---
WS: [id number] ULTRASOUND-GUIDED PARACENTESIS CLINICAL INFORMATION: ascites COMPARISON: None. Procedure Informed consent: The risks, benefits, and alternatives of the procedure were discussed with the patient. Verbal and written consent was obtained. Timeout: A timeout was performed to confirm the correct patient, procedure, and site. Preparation: A suitable skin site was identified. The patient was prepped and draped in usual sterile fashion. Lidocaine 1% was used for local anesthesia. Catheter: 4 Kinyarwanda One-step Yueh catheter. Side: RIGHT lower quadrant. Fluid Volume: 6000 ml Color: Clear yellow DISPOSITION: Discarded safely. Complications: None. US/US paracentesis abd w [id number] IMPRESSION: Uncomplicated ultrasound-guided paracentesis. Removal of 6000 cc
--- NOTE | 2024-10-31 10:02 | P.PN_ITS ---
Subjective 2 Subjective: Having peripheral edema, abdominal distention. Reports awaiting paracentesis. Vitals/I&O/Wt Last Vital Signs Temp 97.2 F L 10/31/24 07:35 Pulse 72 10/31/24 07:35 Resp 18 10/31/24 07:10 BP 145/79 10/31/24 07:35 Pulse Ox 95 10/31/24 07:35 O2 Del Method Nasal Cannula 10/31/24 07:35 O2 Flow Rate 4 10/31/24 08:00 10/30/24 10/31/24 10/31/24 22:59 06:59 14:59 Intake Total 250 / 250 Output Total 0 / 0 Balance 250 / 250 0 / 250 Weight last 48 hrs Weight 89.811 kg Weight 87.997 kg Weight 87.997 kg Physical Exam 2 Const: COMMON NORMALS: patient oriented x3 and alert GENERAL APPEARANCE: c ooperative ORIENTATION/CONSCIOUSNESS: Yes awake HENMT: COMMON NORMALS: oropharynx normal Neck/C-Spine: COMMON NORMALS: no JVD Resp: COMMON NORMALS: normal respiratory effort and clear to auscultation bilaterally AUSCULTATION: clear to auscultation bilaterally Cardio: COMMON NORMALS: no JVD, regular rhythm, S1 normal heart sound present, S2 normal heart sound present and No murmurs present (Cardio) RHYTHM: regular rhythm HEART SOUNDS: S1 normal heart sound present and S2 normal heart sound present GI: COMMON NORMALS: Soft to palpation and non-tender INSPECTION: Yes abdominal distension PALPATION: Yes Soft to palpation Extremity: GENERAL: Yes edema Neuro: COMMON NORMALS: patient oriented x3 and moves all extremities S ENSORIUM/ORIENTATION: Yes alert Skin: COMMON NORMALS: no rashes or lesions noted GENERAL SKIN EXAM: no rashes or lesions noted Data 10/30/24 20:40 10/30/24 20:40 Micro: Microbiology 10/30/24 21:46 Blood Culture - Preliminary Blood SPECIMEN COLLECTED 10/30/24 20:40 Blood Culture - Preliminary Blood SPECIMEN COLLECTED A&P Assessment and plan (1) Pulmonary edema: Reviewed vitals, CBC, CMP, nephrology note. He declines dialysis here unless unimproved with paracentesis. Plans have been for paracentesis first. Requested paracentesis. 6 L removed. Requested fluid analysis, Gram stain and culture. Albumin infusion. Pending nephrology reassessment for consideration of additional dialysis. Does have quite significant lower extremity edema. Reassess oxygenation, blood pressure. Monitor for risk of hypotension. Reassess volume status and fluid overload. Discussed with nursing, case preparer and liner. (2) ESRD (end stage renal disease) on dialysis: As above patient states he makes no urine. Pending reassessment for dialysis. (3) Cirrhosis of liver: He has paracentesis ordered by his dicer operator in [place]. Performed here. Requested albumin. Follow-up fluid studies. (4) Abdominal ascites: As above Plan Recent epididymitis: Had previously been treated for chronic epididymitis. Currently on Bactrim. Previously evaluated by urology at [facility] with no intervention recommended apart from management of ascites, keep scrotum elevated for chronic epididymitis. Requesting to confirm home medications. PDMP PDMP Reviewed: Not Reviewed Attestations 2 Medical Necessity Statement*: Continue admission for assessment management of fluid overload, pulmonary edema and ascites and gentleman with ESRD not producing urine, as well as underlying liver cirrhosis. and High MDM includes amount and/or complexity of data reviewed/ordered [ previous or external records, resulted lab(s)/test(s), ordered lab(s)/test(s) and other healthcare professional discussion] and described risk of complication, morbidity or mortality of management as documented Diagnoses Pulmonary edema J81.1 ESRD (end stage renal disease) on dialysis N18.6; Z99.2 Cirrhosis of liver K74.60 Other ascites R18.8 Ascites type: other type
[2024-10-31 10:03] LABS: Calcium 10.7 mg/dL (8.5-10.5)
[2024-10-31] MEDS: ondansetron 2 mg/ML SDV 2 mL 4 MG IVP (10:33)
[2024-10-31 11:23] LABS: Hepatitis B Surface Antigen Non-Reactive (Nonreactive)
[2024-10-31] MEDS: sulfamethoxazole-trimeth DS 160-800 mg Tablet 0.5 TAB PO (13:41)
[2024-10-31 15:09] LABS: Appearance, Peritoneal Fluid Hazy (Clear); Color, Peritoneal Fluid Yellow (Pale Yellow); Cyto Order Verification No Order; Pathology Referral Yes
[2024-10-31 15:12] LABS: Mononuclear #, Pertinoneal Fl 0.080 10^3/uL; Mononuclear %, Pertinoneal Fl 96.400 %; Polynuclear # Cells, Perit 0.003 10^3/uL; Polynuclear % Cells,Perit 3.600 %; RBC Pertioneal Fluid 1 10^3/uL; WBC Peritoneal Fluid 83 /uL
[2024-10-31] MEDS: albumin 25 G/100 ML BAG 60 G IV (17:14)
[2024-11-01] VITALS (8 sets, daily range): BP systolic 99–130; BP diastolic 59–79; PULSE 62–68; RESP 16–20; TEMP 36.3–36.6; O2SAT 92–99
[2024-11-01] MEDS: ondansetron 2 mg/ML SDV 2 mL 4 MG IVP (05:02)
[2024-11-01 06:02] LABS: Alanine Aminotransferase < 5 U/L (0-41); Albumin Level 2.2 g/dL (3.5-5.2); Alkaline Phosphatase 106 U/L (40-130); Anion Gap 14.2 (5-19); Aspartate Amino Transferase 8 U/L (0-40); Blood Urea Nitrogen 19 mg/dL (6-20); Calcium 11.1 mg/dL (8.5-10.5); Carbon Dioxide 29 mmol/L (22-29); Chloride 97 mmol/L (98-107); Creatinine Clr Calc Pharmacy 23.8325; Globulin 4.1 g/dL (1.3-4.6); Glucose 101 mg/dL (65-115); Magnesium 2.3 mg/dL (1.7-2.3); Osmolality Calculated 282 mOsm/kg (285-295); Potassium 5.2 mmol/L (3.5-5.1); Sodium 135 mmol/L (136-145); Total Protein 6.3 g/dL (6.6-8.7)
[2024-11-01 07:45] LABS: Hepatitis B Surface Antigen Non-Reactive (Nonreactive)
[2024-11-01] MEDS: b-complex-vitamin c Tablet 1 EACH PO (07:53)
[2024-11-01] MEDS: HYDROmorphone tab 2 MG TABLET PO (07:57)
--- NOTE | 2024-11-01 08:25 | PM.PN ---
Subjective Subjective: The patient was to go home. He is still short of breath status post 6 L paracentesis yesterday. Patient has swelling and cachexia. Medications: Reviewed: Yes Medication Review Details: Current Medications Acetaminophen (Acetaminophen 325 Mg Tablet) 650 mg PO Q6H PRN PRN Reason: Mild/Mod Pain Or Temp >/= 101 Albuterol Sulfate (Albuterol 2.5 Mg/0.5 Ml Neb) 2.5 mg INHALATION Q6H.RESP PRN PRN Reason: SHORTNESS OF BREATH Last Admin: 10/31/24 20:18 Dose: 2.5 mg Aspirin (Aspirin 81 Mg Ec Tablet) 81 mg PO BEDTIME ARTEM Last Admin: 10/31/24 22:03 Dose: 81 mg Carvedilol (Carvedilol 25 Mg Tablet) 37.5 mg PO BID ARTEM Last Admin: 11/01/24 07:53 Dose: 37.5 mg Docusate Sodium (Docusate Sodium 100 Mg Capsule) 100 mg PO BID ARTEM Last Admin: 11/01/24 07:53 Dose: Not Given Heparin Sodium (Porcine) (Heparin 5,000 Unit/Ml Inj 1 Ml) 5,000 unit SUBCUT Q12H ARTEM Last Admin: 11/01/24 03:52 Dose: Not Given Hydromorphone HCl (Hydromorphone Tab 2 Mg Tablet) 2 mg PO Q4H PRN PRN Reason: PAIN Last Admin: 11/01/24 07:57 Dose: 2 mg Albumin Human (Albumin) 12.5 gm in 50 mls @ 60 mls/hr IV PRN PRN PRN Reason: Hypotension and/or symptomatic Ipratropium [place] (Ipratropium 0.5 Mg/2.5 Ml Neb) 0.5 mg INHALATION QID.RESPIRATORY [facility] Last Admin: 11/01/24 08:02 Dose: 0.5 mg Lactulose (Lactulose Oral Liq 20 Gm/30 Ml Udc) 10 gm PO DAILY PRN; Protocol PRN Reason: Constipation (see protocol) Minoxidil (Minoxidil 10 Mg Tablet) 10 mg PO DAILY [facility] Last Admin: 11/01/24 07:53 Dose: 10 mg Multivitamins (C-Xhamjqf-Uomnvnf C Tablet) 1 each PO DAILY ARTEM Last Admin: 11/01/24 07:53 Dose: 1 each Non-Formulary Medication (Ferric Citrate [Auryxia]) 210 mg PO TID [facility] Ondansetron HCl (Ondansetron 2 Mg/Ml Sdv 2 Ml) 4 mg IVP Q8H PRN PRN Reason: vomiting, or N/V if npo Last Admin: 11/01/24 05:02 Dose: 4 mg Prochlorperazine (Prochlorperazine 10 Mg Tablet) 5 mg PO Q8H PRN PRN Reason: N/V Sevelamer Carbonate (Sevelamer 800 Mg Tablet) 1,600 mg PO TID [facility] Last Admin: 11/01/24 07:53 Dose: 1,600 mg Trimethoprim/Sulfamethoxazole (Sulfamethoxazole-Trimeth Ds 160-800 Mg Tablet) 0.5 tab PO QMWF [facility] Last Admin: 10/31/24 13:41 Dose: 0.5 tab Vitals/I&O/Wt Last Vital Signs Temp 97.9 F 11/01/24 03:59 Pulse 68 11/01/24 08:06 Resp 16 11/01/24 08:00 BP 99/59 11/01/24 07:55 Pulse Ox 92 11/01/24 08:00 O2 Del Method Room Air 11/01/24 08:00 O2 Flow Rate 4 11/01/24 08:00 10/31/24 11/01/24 11/01/24 22:59 06:59 14:59 Intake Total 1024 / 1264 1200 / 1200 Output Total 0 / 0 0 / 0 Balance 1024 / 1264 0 / 1264 1200 / 1200 Weight last 48 hrs Weight 90.265 kg Weight 89.811 kg Weight 87.997 kg Weight 87.997 kg Physical Exam Narrative: Vital signs noted and blood pressure is on the low side Patient appears ill with muscle wasting temporal wasting. Patient requiring facemask oxygen. HEENT is normocephalic atraumatic. Neck is supple lungs have dull bases and crackles. Heart regular Abdomen soft positive bowel sounds distended positive ascites. Extremities bilateral edema. Left upper extremity AV graft with good thrill and bruit. Neuro awake alert oriented x 3 Data 10/30/24 20:40 11/01/24 05:28 Micro: Microbiology 10/30/24 21:46 Blood Culture - Preliminary Blood NEGATIVE TO DATE 10/30/24 20:40 Blood Culture - Preliminary Blood NEGATIVE TO DATE A&P Assessment and plan (1) ESRD (end stage renal disease) on dialysis: 44-year-old gentleman 1. Severe ascites even after paracentesis yesterday 2. End-stage renal disease patient is for dialysis today he is hoping to get to his outpatient center if not we will do the dialysis now. 3. Hypertension blood pressures dropped. May be difficult to remove more fluid on dialysis. Will decrease Coreg 4. Hemoglobin of 9.9 is good for the patient. Will monitor 5. Mild hyponatremia from ESRD and volume overload Monitor glucose. 6. Patient has hypercalcemia we will stop any vitamin D3 analogs however give regular ergocalciferol. Vitamin D level is very low PTH is low for dialysis. Patient was seen and examined using A/V equipment with the aid of a nurse. The patient consented to telehealth. Plan As above PDMP PDMP Reviewed: Not Reviewed Attestations Medical Necessity Statement*: Low blood pressure anasarca, ESRD muscle wasting cirrhosis. Time Spent in Patient Care: 16 - 35 minutes (>than 50% of time spent in counselling and/or direct pt care on unit). Coding Level of Care Code Acute Code for Chg Fwd Diagnoses ESRD (end stage renal disease) on dialysis N18.6; Z99.2
--- NOTE | 2024-11-01 10:48 | PC.CHAP ---
Pastoral Care Encounter/Spiritual Assessment Type of Contact [] Declined butcher helper visit [] Patient/Family/Request visit [] Outpatient visit [] Follow-up visit [] Physician referral [] Code/Alert [x] Routine visit [] Staff referral [] Actively dying [] Patient sleeping [] Family support [] [] Out of room [] Palliative care [] [] Receiving care in room [] Pre-surgical visit [] Trauma [] Long length of stay [] ICU visit [] Other: Relational/Emotional Strength [x] Patient feels connected with others/family/visitors/staff [] Distress [] Loneliness/isolation [] Abandonment Spirituality of Patient [x] Person of Ct [] Attends Zoroastrian of their Ct [x] Believes in Prayer [] Reads Bible or Advent materials [] There are Spiritual issues to be addressed Wall Steamer Interventions [x] Prayer [x] Active listening [] Non-anxious presence [x] Spiritual/emotional support [] Crisis/trauma care [] Spiritual counseling [] Bereavement support [] Provided bereavement packet [] Provided Bible/devotional materials [] Provided toy/stuffed animal, coloring book to patient or family member [] Provided Communion [] Anointing/Balsam [] Salvation [x] Completed spiritual assessment [] Other: Impact on Illness or Injury [] Angry [] Fearful [] Anxious [] Often cries [] Exhaustion [] Unable to work [] Unable to attend baptist [] Unable to walk/stand [] Unable to read [] Unable to drive [] Unable to eat/drink [] Unable to sleep [] Unable to be with family [] Patient intubated [] Other: Summary Time spent with patient 5 min
--- NOTE | 2024-11-01 11:59 | PM.DCS ---
Discharge Providers Date of Admission: 10/31/24 00:38 Date of Discharge: November 01, 2024 Attending Provider at Admission: Saurabh Mann MD Attending Provider at Discharge: Bob Gonzalez Primary Care Provider: Delio Salazar MD Diagnoses at Discharge Discharge Diagnosis (1) ESRD (end stage renal disease) on dialysis: Status: Acute Reason for Visit Reason for Visit: SOB Brief History: Mal Gibbs is a 44 year old male with end-stage liver disease and end-stage kidney disease receiving dialysis 3 days a week last performed Thursday patient states he was orthopneic and dyspneic today. He was seen in the emergency department with pulmonary vascular congestion and LV enlargement by chest x-ray. He is referred for admission for in hospital dialysis. Notably the patient also has end-stage liver disease receiving paracentesis often i.e. August 23, 2024 had 4500 cc drawn off, september 1204/2025 had 5750 cc drawn off on September 19, 2024 4000 cc and most recently October 03, 2024 3200 cc drawn off. Patient states his blood pressure does sometimes go low during dialysis but he thinks they have not had trouble getting fluid off. Patient tells me he is on a fluid restriction and says he drinks under 32 ounces a day. For insensible losses this does not totally make sense because he is gaining about a kilogram a day. Hospital Course Hospital Course She underwent paracentesis, studies not suggestive of SBP, 6 L removed with reported improvement. Given albumin infusion, blood pressures monitored. Respiratory status with improvement, on baseline oxygen. Today he is undergoing dialysis and would like to discharge afterwards to continue outpatient follow-up. As per prior urology instructions with regards to chronic scrotal edema, chronic epididymitis, continue management of ascites, fluid overload, ESRD, elevate scrotum for relief from edema and discomfort. Some discomfort in the right nare this morning, looks like some hardened mucus, and he did cause some irritation trying to get to it. Requested some nasal saline. Please follow-up and reassess. Physical Exam Const: COMMON NORMALS: patient oriented x3 and alert GENERAL APPEARANCE: cooperative ORIENTATION/CONSCIOUSNESS: Yes awake HENMT: COMMON NORMALS: oropharynx normal Neck/C-Spine: COMMON NORMALS: no JVD Resp: COMMON NORMALS: normal respiratory effort and clear to auscultation bilaterally AUSCULTATION: clear to auscultation bilaterally Cardio: COMMON NORMALS: no JVD, regular rhythm, S1 normal heart sound present, S2 normal heart sound present and No murmurs present (Cardio) RHYTHM: regular rhythm HEART SOUNDS: S1 normal heart sound present and S2 normal heart sound present GI: COMMON NORMALS: Normal to inspection, nondistended, normoactive bowel sounds present, Soft to palpation and non-tender PALPATION: Yes Soft to palpation OTHER: Abdomen large, smaller in size Extremity: COMMON NORMALS: no joint enlargement and no pedal edema GENERAL: Yes edema (1+) Neuro: COMMON NORMALS: patient oriented x3 and moves all extremities SENSORIUM/ORIENTATION: Yes alert Skin: COMMON NORMALS: no rashes or lesions noted GENERAL SKIN EXAM: no rashes or lesions noted Discharge Data Studies Completed and Pending Completed Studies During Hospitalization Category Date Time Status XR chest 1V portable [id number] Stat Exams 10/30/24 20:45 [place] [id number] Routine Ultrasound 10/31/24 10:00 Completed Pending at discharge Category Date Time Status Basic Metabolic Panel AM LABS Lab 11/02/24 04:00 Ordered Basic Metabolic Panel AM LABS Lab 11/03/24 04:00 Ordered Blood Culture Stat Lab 10/30/24 21:46 Results Body Fluid Culture & GS Routine Lab 10/31/24 14:30 Results Comprehensive Metabolic Panel AM LABS Lab 11/02/24 04:00 Ordered Comprehensive Metabolic Panel AM LABS Lab 11/03/24 04:00 Ordered Magnesium AM LABS Lab 11/02/24 04:00 Ordered Magnesium AM LABS Lab 11/03/24 04:00 Ordered Phosphorus AM LABS Lab 11/02/24 04:00 Ordered Phosphorus AM LABS Lab 11/03/24 04:00 Ordered Radiology Impressions Chest X-Ray 10/30/24 20:45 IMPRESSION: Unchanged cardiomegaly. CHF with pulmonary edema. Paracentesis Ultrasound 10/31/24 10:00 IMPRESSION: Uncomplicated ultrasound-guided paracentesis. Removal of 6000 cc Laboratory Results WBC 3.42 10^3/uL (3.29-11.43) 10/30/24 20:40 RBC 3.67 10^6/uL (3.85-5.65) L 10/30/24 20:40 Hgb 9.90 g/dL (11.27-16.99) L 10/30/24 20:40 Hct 31.8 % (37-53) L 10/30/24 20:40 MCV 86.6 fl (82-101) 10/30/24 20:40 MCH 27.0 pg (27-33) 10/30/24 20:40 MCHC 31.1 g/dL (30-55) 10/30/24 20:40 RDW 17.7 % (12.1-15.1) H 10/30/24 20:40 Plt Count 225 10^3/cmm (157-399) 10/30/24 20:40 MPV 9.8 fL (7.4-10.4) 10/30/24 20:40 Neut % (Auto) 58.8 % 10/30/24 20:40 Lymph % (Auto) 20.2 % 10/30/24 20:40 Kane % (Auto) 9.9 % 10/30/24 20:40 Eos % (Auto) 8.8 % 10/30/24 20:40 Baso % (Auto) 2.3 % 10/30/24 20:40 Neut # (Auto) 2.01 10^3/uL (1.8-7.7) 10/30/24 20:40 Lymph # (Auto) 0.7 10^3/uL (0.8-4.8) L 10/30/24 20:40 Kane # (Auto) 0.3 10^3/uL (0.2-0.9) 10/30/24 20:40 Eos # (Auto) 0.3 10^3/uL (0.0-0.8) 10/30/24 20:40 Baso # (Auto) 0.1 10^3/uL (0.0-0.1) 10/30/24 20:40 Nucleated RBC % (auto) 0 % 10/30/24 20:40 Nucleated RBCs # 0.0 /100WBC 10/30/24 20:40 Sodium 135 mmol/L (136-145) L 11/01/24 05:28 Potassium 5.2 mmol/L (3.5-5.1) H 11/01/24 05:28 Chloride 97 mmol/L (98-107) L 11/01/24 05:28 Carbon Dioxide 29 mmol/L (22-29) 11/01/24 05:28 Anion Gap 14.2 (5-19) 11/01/24 05:28 BUN 19 mg/dL (6-20) 11/01/24 05:28 Creatinine 4.8 mg/dL (0.7-1.2) H 11/01/24 05:28 GFR Calculation 13.4 mL/min (90-130) L 11/01/24 05:28 Glucose 101 mg/dL (65-115) 11/01/24 05:28 POC Glucose 116 mg/dL (70-110) H 11/01/24 06:24 Calculated Osmolality 282 mOsm/kg (285-295) L 11/01/24 05:28 Lactic Acid 0.6 mmol/L (0.5-2.2) 10/30/24 20:40 Calcium 11.1 mg/dL (8.5-10.5) H 11/01/24 05:28 Phosphorus 6.8 mg/dL (2.5-4.5) H 11/01/24 05:28 Magnesium 2.3 mg/dL (1.7-2.3) 11/01/24 05:28 Total Bilirubin 0.3 mg/dL (0.15-1.2) 11/01/24 05:28 AST 8 U/L (0-40) 11/01/24 05:28 ALT < 5 U/L (0-41) 11/01/24 05:28 Alkaline Phosphatase 106 U/L (40-130) 11/01/24 05:28 C-Reactive Protein 52.7 mg/L (0.0-4.9) H 10/30/24 20:40 Total Protein 6.3 g/dL (6.6-8.7) L 11/01/24 05:28 Albumin 2.2 g/dL (3.5-5.2) L 11/01/24 05:28 Globulin 4.1 g/dL (1.3-4.6) 11/01/24 05:28 25-OH Vitamin D Total 6 ng/mL (30-100) L 10/30/24 20:40 PTH Intact 124.4 pg/mL (15-65) H 10/30/24 20:40 Calcium (PTH Intact) 10.7 mg/dL (8.5-10.5) H 10/30/24 20:40 Peritoneal Color Yellow (Pale Yellow) 10/31/24 14:30 Peritoneal Appearance Hazy (Clear) 10/31/24 14:30 Peritoneal WBC 83 /uL 10/31/24 14:30 Peritoneal RBC 1 10^3/uL 10/31/24 14:30 Periton Mononu # Auto 0.080 10^3/uL 10/31/24 14:30 Mononuclear WBCs % 96.400 % 10/31/24 14:30 Polynuclear WBCs % 3.600 % 10/31/24 14:30 Perit Polynuc WBCs # 0.003 10^3/uL 10/31/24 14:30 Peritoneal Diff Commnt Yes 10/31/24 14:30 Hep Bs Antigen Non-reactive (Nonreactive) 11/01/24 05:28 Hep Bs Antibody 69.8 (11.5-1000) 11/01/24 05:28 Hepatitis C Antibody Non-reactive (Nonreactive) 11/01/24 05:28 Vitals Last Vital Signs Temp 97.9 F 11/01/24 03:59 Pulse 68 11/01/24 08:06 Resp 16 11/01/24 08:00 BP 99/59 11/01/24 07:55 Pulse Ox 92 11/01/24 08:00 O2 Del Method Room Air 11/01/24 08:00 O2 Flow Rate 4 11/01/24 08:00 Discharge Plan Discharge Patient Disposition: Home Condition: Stable Prescriptions: Continued ferric citrate [Auryxia] 210 mg iron Tablet 630 mg PO TID aspirin 81 mg tablet,delayed release (DR/EC) 81 mg PO BEDTIME RenaPlex-D 800 mcg-12.5 mg -2,000 unit tablet 1 tab PO QAM carvedilol 25 mg tablet 50 mg PO Q12H minoxidil 2.5 mg tablet 10 mg PO TID sevelamer carbonate 800 mg tablet 1,600 mg PO TID albuterol sulfate 90 mcg/actuation HFA aerosol inhaler 1 puff INHALATION Q6H PRN (Reason: Shortness Of Breath) Incruse Ellipta 62.5 mcg/actuation blister with device 1 inh INHALATION DAILY hydromorphone 4 mg tablet 4 mg PO Q6H PRN (Reason: Pain) Discharge Orders: Discharge Order (Routine); Ordered 11/01/24 Ordered By: Bbo Gonzalez Referrals: [facility] [Outside] Delio Salazar MD [Primary Care Provider, [facility]] - 4-7 days Referral Note: We have notified your physician's clinic of the need for a follow-up appointment to be scheduled. If you have not heard from them within the next 2 business days, please call them directly. Patient Instructions: Ascites (DC), End Stage Kidney Disease (DC), Opioid Safety, Patient Portal & Elizabeth Instructions Activity Restrictions/Additional Instructions: Follow-up with your primary provider for reassessment of fluid overload, ascites, scrotal edema and chronic epididymitis. Continue scrotal elevation for comfort and to reduce edema. Continue with regular hemodialysis. Paracentesis as needed. Seek medical attention in case of any worsening or new concerning symptoms. Discharge Attestations Time Spent in Discharge Care*: greater than 30 min Status at Discharge: Cognitive status at discharge: cognitively intact, Behavioral status at discharge: cooperative, Quality Metrics Clinical Quality Measures [ No reported AMI, CVA or VTE this stay] Coding Level of Care Code 06246 Total time (in minutes) for Discharge: 35 Diagnoses ESRD (end stage renal disease) on dialysis N18.6; Z99.2
--- OUTSIDE RECORDS SUMMARY | 2024-11-04 05:28 | XMS_ITS | Encounter Summary ---
Author Organization [facility] Address [address] [place] [address] Care Team Providers Care General Road Production Manager Name Role Phone Delio Salazar MD Primary Care Provider + Reason for Visit * Reason Comments Cough Encounter Details Date Type Department Care Team (Late st Contact Info) Description 11/04/2024 5:28 AM CDT - 11/04/2024 7:55 AM CDT Emergency [facility] Emergency Medicine [address] [address] [facility] [address] [place] [address] Evan [place] MD [address] [place] [address] [place] [address] Pneumonia of right lower lobe due to infectious organism (Primary Dx); Chronic pulmonary edema; Hyperkalemia Discharge Disposition: Home or Self Care Social History Tobacco Use Types Packs/Day Years [...] worry about transportation for future doctor visits, 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 No 2024 Housing Stability Answer [...] who hurts you emotionally and/or physically? 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 Gender Identity Not on file Sexual Orientation Not on file documented as of this encounter Last Filed Vital Signs Vital Sign Reading Time Taken Comments Blood Pressure 137/84 11/04/2024 7:45 AM CDT Pulse 68 11/04/2024 7:45 AM CDT Temperature 36.7 C (98.1 F) 11/04/2024 5:23 AM CDT Respiratory Rate 22 11/04/2024 7:45 AM CDT Oxygen Saturation 99% 11/04/2024 7:45 AM CDT Inhaled Oxygen Concentration - - Weight 86.2 kg (190 lb) 11/04/2024 5:23 AM CDT Height 185.4 cm (6' 1 ) 11/04/2024 5:23 AM CDT Body Mass Index 25.07 11/04/2024 5:23 AM CDT documented in this encounter Discharge Instructions * Discharge Instructions* Evan [place] MD - 11/04/2024 7:52 AM CDT Be sure to complete your dialysis on Thursday as scheduled, tomorrow. * Attachments The following attachments cannot be sent through Care Everywhere. * Pulmonary Edema (Bruneian) * Hyperkalemia (Bruneian) * Pneumonia (Bruneian) * Levofloxacin (Bruneian) * Albuterol and Ipratropium Oral Inhalation (Bruneian) documented in this encounter Medications at Time of Discharge levoFLOXacin (LEVAQUIN) 250 mg tablet Take 1 Tablet (250 mg) by mouth every other day for 5 doses. 5 Tablet 11/04/2024 5 ipratropium-albut Jose A (DUONEB) 0.5 mg-3 mg(2.5 mg base)/3 mL Solution for Nebulization Take 3 mL by inhalation every 6 hours as needed for Shortness of Breath. Dispense 1 box 1 Each 11/04/2024 HYDROmorphone (DILAUDID) 4 mg tabletIndications :ESRD (end stage renal disease) on dialysis (CMS/HCC),Hepatic cirrhosis, unspecified hepatic cirrhosis type, unspecified whether ascites present (CMS/HCC),Scrotal swelling Take 1 Tablet (4 mg) by mouth every 6 hours as needed for Pain. 10/21/24-11/18/24 Max Daily Amount: 4 Tablets 112 Tablet 10/21/2024 5 HYDROmorphone (DILAUDID) 4 mg tabletIndications :Palliative care by specialist Take 1 Tablet (4 mg) by mouth every 6 hours as needed for Pain. 11/18/24-12/16/24 Max Daily Amount: 4 Tablets 112 Tablet 11/18/2024 5 HYDROmorphone (DILAUDID) 4 mg tabletIndications :ESRD (end stage renal disease) on dialysis (CMS/HCC),Hepatic cirrhosis, unspecified hepatic cirrhosis type, unspecified whether ascites present (CMS/HCC),Scrotal swelling,Palliati ve care by specialist Take 1 Tablet (4 mg) by mouth every 6 hours as needed for Pain. 12/16/24-01/13/25 Max Daily Amount: 4 Tablets 112 Tablet 12/16/2024 5 albuterol sulfate HFA 90 mcg/actuation aerosol inhaler Take 1 Puff by inhalation every 6 hours. 8.5 Gram 2 08/18/2024 umeclidinium (INCRUSE ELLIPTA) 62.5 mcg/actuation Disk with Device Take 1 Puff by inhalation daily. 30 Each 2 08/18/2024 diclofenac sodium (VOLTAREN) 1 % gel Apply 2 Grams to affected area 4 times daily. 100 Gram 08/18/2024 calcium ACETATE (PHOSLO) 667 mg Capsule Take 667 mg by mouth post-proc every 8 hours. 12/08/2022 nitroglycerin (NITROSTAT) 0.4 mg Tablet, Sublingual Place 1 Tablet under tongue. 08/21/2021 carvediloL (COREG) 25 mg tabletIndications :Essential hypertension,Chris nary artery disease involving morongo coronary artery of morongo heart without angina pectoris TAKE 1 & 1/2 (ONE & ONE-HALF) TABLETS BY MOUTH TWICE DAILY WITH MEALS 180 Tablet 07/04/2024 atorvastatin (LIPITOR) 40 mg tabletIndications :Coronary artery disease involving morongo coronary artery of morongo heart without angina pectoris take 1 tablet by mouth once daily at bedtime 100 Tablet 1 10/22/2023 amLODIPine (NORVASC) 10 mg tabletIndications :Essential hypertension Take 1 tablet by mouth once daily 100 Tablet 1 10/19/2023 hydrALAZINE (APRESOLINE) 100 mg Tablet tabletIndications :Essential hypertension take 1 tablet by mouth every 8 hours 300 Tablet 1 10/19/2023 aspirin (ECOTRIN EC) 81 mg Tablet, Delayed Release (E.C.)Indications :Coronary artery disease involving morongo coronary artery of morongo heart without angina pectoris Take 1 tablet by mouth once daily 100 Tablet 1 10/19/2023 MINOXIDIL ORAL Take 10 mg by mouth 3 times daily. Miscellaneous Medical SupplyIndications :Right inguinal hernia Hernia belt/truss 1 Each 04/20/2023 portable oxygenIndications :Chronic respiratory failure with hypoxia and hypercapnia (CMS/HCC),Chronic obstructive pulmonary disease with acute exacerbation (CMS/HCC),Chronic diastolic heart failure (CMS/HCC) Inogen Face to Face completed within 30 days: yes Length of Need: 99 months By: Nasal Cannula Continuously at 4 L/min. 1 Each 02/12/2023 naloxone (NARCAN) 4 mg/spray [place], Non-Aerosol EMERGENCY USE ONLY: Administer 1 spray (4 mg) in one nostril one time. May repeat in alternating nostrils every 2-3 min until responsive or EMS arrives. 2 Each 3 09/25/2022 pantoprazole (PROTONIX) 40 mg Tablet, Delayed Release (E.C.) Take 1 Tablet (40 mg) by mouth daily. 30 Tablet 5 03/05/2021 documented as of this encounter ED Notes * Lizzy Park RN - 11/04/2024 5:31 AM CDT Patient arrives POV via wheelchair for c/o cough that started yesterday afternoon. Patient receiveddialysis yesterday and had a paracentesis Thursday. Patient is on 3L oxygen continuously via nasal canula. documented in this encounter Plan of Treatment Upcoming Encounters Date Type Department Care Team (Late st Contact Info) Description 12/21/2024 11:45 AM CDT Office Visit [facility] [address] [place] [address] Emerita Urban ANP [address] [place] [address] 12/21/2024 2:20 PM CDT Office Visit [facility] [address] [place] [address] [place] Brittani Jacquie, AUTHORIZER [address] [place] [address] Pending Results Name Type Priority Associated Diagnoses Date /Time XR CHEST PA OR AP 1 VW Imaging Stat 5:57 AM CDT Scheduled Orders Name Type Priority Associated Diagnoses Orde r Schedule XR CHEST PA OR AP 1 VW Imaging Routine Rad Once for 1 Occurrences starting 11/04/2024 until 11/04/2024 RT ASSESS AND TREAT IN ED Respiratory Care Stat ONE TIME for 1 Occurrences starting 11/04/2024 until 11/04/2024 documented as of this encounter Procedures Procedure Name Priority Date/Time Associated Diagnosis Comments COVID-19 ANTIGEN Stat 11/04/2024 6:01 AM CDT INFLUENZA VIRUS A AND B, ANTIGEN DETECTION Stat 11/04/2024 6:01 AM CDT CBC WITH DIFFERENTIAL Stat 11/04/2024 6:01 AM CDT BASIC METABOLIC PANEL Stat 11/04/2024 6:01 AM CDT documented in this encounter Results * COVID-19 ANTIGEN (11/04/2024 6:01 AM CDT) COVID-19 ANTIGEN Presumptive Negative Presumptive Negative 11/04/2024 6:28 AM CDT [facility] Upper Respiratory ANTERIOR NARES SWAB / Unknown Collection / Unknown 11/04/2024 6:01 AM CDT 11/04/2024 6:05 AM CDT Narrative [facility] - 11/04/2024 6:28 AM CDT Erma SARS antigen test has been authorized by FDA under an emergency use authorization (EUA) and has been authorized only for the detection of proteins from SARS-CoV-2 and influenza, not for any other viruses or pathogens. Erma SARS Antigen PHILLIP is intended for the simultaneous qualitative detection and differentiation of nucleocapsid protein antigen from SARS-CoV-2 directly from nasopharyngeal (AUTHORIZER) and nasal (NS) swab specimens collected from [...] with at least 48 hours between tests. Evan [place] MD MICROBIOLOGY - GENERAL O ALFREDERACHACORTA Final Result [id number] [address] [place] [phone] * INFLUENZA VIRUS A AND B, ANTIGEN DETECTION (11/04/2024 6:01 AM CDT) Pathologist [facility] INFLUENZA A AG NOT DETECTED Not Detected 11/04/2024 6:28 AM CDT [facility] INFLUENZA B AG NOT DETECTED Not Detected 11/04/2024 6:28 AM CDT [facility] Upper Respiratory ENTIRE NASOPHARYNX / Unknown Collection / Unknown 11/04/2024 6:01 AM CDT 11/04/2024 6:05 AM CDT [facility] - 11/04/2024 6:28 AM CDT Negative results do not rule out infection. If clinically indicated, consider PCR testing which is more sensitive than antigen testing. If PCR testing is desired, consult with your local laboratory as sample recollection may be required. Evan [place] MD MICROBIOLOGY - GENERAL O RDERABLES Final Result [facility] CLIA # [id number] [address] [place] [id number] * (ABNORMAL) BASIC METABOLIC PANEL (11/04/2024 6:01 AM CDT) SODIUM 132(L) 136 - 145 mmol/L 11/04/2024 6:24 AM [facility] POTASSIUM 6.0(H) 3.5 - 5.1 mmol/L 11/04/2024 6:24 AM [facility] Comment:Moderate hemolysis p resent. Can cause significant falsely elevated result. Redraw if indicated. CHLORIDE 98 98 - 107 mmol/L 11/04/2024 6:24 AM [facility] CO2 28 22 - 29 mmol/L 11/04/2024 6:24 AM [facility] CALCIUM 10.1(H) 8.6 - 10.0 mg/dL 11/04/2024 6:24 AM [facility] BUN 17 6 - 20 mg/dL 11/04/2024 6:24 AM [facility] CREATININE 3.59(H) 0.67 - 1.17 mg/dL 11/04/2024 6:24 AM [facility] GLUCOSE 91 74 - 99 mg/dL 11/04/2024 6:24 AM [facility] GFR 21(L) >=60 mL/min/1.7 3 sq meter 11/04/2024 6:24 AM [facility] Comment:eGFR calculated with 2020 CKD-EPI equation. Vegetarian diet, extremely high or low muscle mass, and may affect results. Cystatin C with Glomerular Filtration Rate is a suitable alternative for these patients. ANION GAP 6 5 - 20 mmol/L 11/04/2024 6:24 AM [facility] Blood BLOOD SPECIMEN / Unknown Venipuncture / Unknown 11/04/2024 6:01 AM CDT 11/04/2024 6:05 AM CDT Evan [place] MD CHEMISTRY ORDERABLES Fin al Result [facility] CLIA # [id number] [address] [place] [phone] * (ABNORMAL) CBC WITH DIFFERENTIAL (11/04/2024 6:01 AM CDT) WBC 4.6 4.2 - 9.1 K/uL 11/04/2024 6:11 AM [facility] RBC 3.65(L) 4.63 - 6.08 M/uL 11/04/2024 6:11 AM [facility] HEMOGLOBIN 9.8(L) 13.7 - 17.5 g/dL 11/04/2024 6:11 AM [facility] HEMATOCRIT 31.2(L) 40.1 - 51.0 % 11/04/2024 6:11 AM [facility] MCV 85.5 79.0 - 92.2 fL 11/04/2024 6:11 AM [facility] MCH 26.8 25.7 - 32.2 pg 11/04/2024 6:11 AM [facility] MCHC 31.4(L) 32.3 - 36.5 g/dL 11/04/2024 6:11 AM [facility] RDW 18.6(H) 11.0 - 14.5 % 11/04/2024 6:11 AM [facility] RDW-STDEV 57.7(H) 36.9 - 56.9 fL 11/04/2024 6:11 AM [facility] PLATELETS 187 130 - 400 K/uL 11/04/2024 6:11 AM [facility] MPV 10.1 10.0 - 14.8 fL 11/04/2024 6:11 AM [facility] NEUTROPHILS 63 34 - 68 % 11/04/2024 6:11 AM [facility] LYMPHOCYTES 15(L) 22 - 53 % 11/04/2024 6:11 AM [facility] MONOCYTES 11 5 - 12 % 11/04/2024 6:11 AM [facility] EOSINOPHILS 9(H) 1 - 7 % 11/04/2024 6:11 AM [facility] BASOPHILS 2(H) 0 - 1 % 11/04/2024 6:11 AM [facility] IMMATURE GRANULOCYTES 0 % 11/04/2024 6:11 AM [facility] NEUTROPHIL ABSOLUTE 2.94 1.78 - 5.38 K/uL 11/04/2024 6:11 AM [facility] LYMPHOCYTE ABSOLUTE 0.70(L) 1.20 - 3.40 K/uL 11/04/2024 6:11 AM [facility] MONOCYTE ABSOLUTE 0.49 0.30 - 0.82 K/uL 11/04/2024 6:11 AM [facility] EOSINOPHIL ABSOLUTE 0.43 0.04 - 0.54 K/uL 11/04/2024 6:11 AM [facility] BASOPHILS ABSOLUTE 0.07 0.01 - 0.08 K/uL 11/04/2024 6:11 AM [facility] IMMATURE GRANULOCYTES ABSOLUTE 0.01 K/uL 11/04/2024 6:11 AM [facility] Blood BLOOD SPECIMEN / Unknown Venipuncture / Unknown 11/04/2024 6:01 AM CDT 11/04/2024 6:05 AM T us Evan [place] MD HEMATOLOGY ORDERABLES Fi nal Result [facility] CLIA # [id number] [address] [place] [phone] documented in this encounter Visit Diagnoses Diagnosis Pneumonia of right lower lobe due to infectious organism- Primary Chronic pulmonary edema Pulmonary congestion and hypostasis Hyperkalemia Hyperpotassemia documented in this encounter Administered Medications Inactive Administered Medications - up to 3 most recent administrations Medication Order MAR Action Action Date Dose Rate Site IPRATROPIUM 0.5 MG-ALBUTEROL 3 MG (2.5 MG BASE)/3 ML NEBULIZATION SOLN (CABINET OVERRIDE) 1 dose, Starting on Thu11/04/24 at 0702, Until Thu11/04/24 at 0711, Nancy Rizzo L: cabinet override Given 11/04/2024 7:11 AM CDT 3 mL levoFLOXacin (LEVAQUIN) tablet 500 mg 500 mg, Oral, ONE TIME ONLY, 1 dose, On Thu11/04/24 at 0800, Routine, Antibiotic Indication: Pneumonia - Community-acquired(CAP) Given 11/04/2024 7:49 AM CDT 500 mg ondansetron (ZOFRAN) 4 mg/2 mL injection 4 mg 4 mg, IV, ONE TIME ONLY, 1 dose, On Thu11/04/24 at 0715, Routine Given 11/04/2024 7:18 AM CDT 4 mg documented in this encounter Active and Recently Administered Medications Times are shown in CDT. Scheduled Medication Order 11/02/2024 11/03/2024 11/04/2024 ipratropium-albuteroL (DUONEB) 0.5 mg-3 mg(2.5 mg base)/3 mL inhalation solution 3 mL 3 mL, Inhalation, ONE TIME ONLY RESPIRATORY, 1 dose, On Thu11/04/24 at 0715, Routine levoFLOXacin (LEVAQUIN) tablet 500 mg (COMPLETED) 500 mg, Oral, ONE TIME ONLY, 1 dose, On Thu11/04/24 at 0800, Routine, Antibiotic Indication: Pneumonia - Community-acquired(CAP) 0749 (Given - Provid er: Magda Daley, JAGUAR) ondansetron (ZOFRAN) 4 mg/2 mL injection 4 mg (COMPLETED) 4 mg, IV, ONE TIME ONLY, 1 dose, On Thu11/04/24 at 0715, Routine 0718 (Given - Provid er: Magda Daley RN) No Frequency Medication Order 11/02/2024 11/03/2024 11/04/2024 IPRATROPIUM 0.5 MG-ALBUTEROL 3 MG (2.5 MG BASE)/3 ML NEBULIZATION SOLN (CABINET OVERRIDE) (COMPLETED) 1 dose, Starting on Thu11/04/24 at 0702, Until Thu11/04/24 at 0711, Nancy Rizzo: cabinet override 0711 (Given - Provid er: Nancy Rizzo RCP) documented in this encounter Additional Health Concerns Infection Onset Date Last Indicated Resolved Time R/O COVID-11/04/2024 11/04/2024 11/04/2024 5:45 AM CDT R/O COVID-19 11/04/2024 11/04/2024 11/04/2024 6:28 AM CDT Assessment Noted Time PHQ-9 Depression Total Score: 2 10/22/19 1:00 PM CDT documented as of this encounter Care Teams General Road Production Manager Relationship Specialty Start Date End Date Delio [place] MD [address] [place] [phone] PCP - General Family Practice 01/30/24 documented as of this encounter
--- OUTSIDE RECORDS SUMMARY | 2024-11-04 09:25 | XMS_ITS | Clinical Summary ---
Author Organization [facility] Address [address] [place] [address] Phone Care Team Providers Care Matrix Inspector Name Role Phone Delio Salazar MD Primary [...] 03/05/20 21 Active naloxone (NARCAN) 4 mg/spray [place], Non-Aerosol EMERGENCY USE ONLY: Administer 1 spray [...] Delayed Release (E.C.)Indication s:Coronary artery disease involving [place]ok coronary artery of [place]kw[place] heart without angina pectoris Take 1 tablet by mouth once daily 100 Tablet 1 10/19/19 24 Active atorvastatin (LIPITOR) 40 mg tabletIndication s:Coronary artery disease involving ekwok coronary artery of [place] heart without angina pectoris take 1 tablet by mouth once daily at bedtime 100 Tablet 1 10/22/19 24 Active carvediloL (COREG) 25 mg tabletIndication s:Essential hypertension,Cor onary artery disease involving ekw[place] coronary artery of [place] heart without angina pectoris TAKE 1 & [...] unspecified whether ascites present (CMS/HCC),Scrota l swelling,Palliat swapnil care by specialist Take 1 Tablet (4 mg) by mouth every 6 hours as needed for Pain. 12/16/24-01/13/25 Max Daily Amount: 4 Tablets 112 Tablet 12/17/19 25 025 Active levoFLOXacin (LEVAQUIN) 250 mg tablet Take 1 Tablet (250 mg) by mouth every other day for 5 doses. 5 Tablet 11/05/19 25 025 Active ipratropium-albu teroL (DUONEB) 0.5 mg-3 mg(2.5 mg base)/3 mL Solution for Nebulization Take 3 mL by inhalation every 6 hours as needed for Shortness of Breath. Dispense 1 box 1 Each 11/05/19 25 Active metoclopramide HCl (REGLAN) 10 mg tablet [...] initial encounter 03/21/2024 Postoperative generalized abdominal pain 024 Acute postoperative abdominal pain 01/25/2024 Small bowel [...] 10/09/2020 Neuroforaminal stenosis of lumbar spine 10/10/19 21 Bilateral renal artery stenosis 10/09/2020 Medical non-compliance [...] 07/02/2023 07/05/2023 Shortness of breath 01/09/2023 02/10/20 23 Mild intermittent asthma with exacerbation 01/03/2023 02/09/2023 Chronic bilateral low back p ain without sciatica 12/30/2022 02/09/2023 Hyponatremia 12/23/2022 02/09/2023 ESRD (end stage renal disease) 12/23/2022 02/09/2023 Abdominal pain 11/22/2022 02/09/2023 Pericardial effusion 11/22/2022 023 Pneumonia of both lungs due to infectious organism 11/22/2022 02/09/2023 Acute blood loss anemia 11/07/2022 10/0 01/2023 NSTEMI (non-ST elevated myoc ardial infarction) 11/05/2022 [...] Crush injury of hand, left, initial encounter 09/29/19 23 02/09/2023 Hematuria 09/28/2022 02/09/2023 Dysuria 09/28/2022 02/09/2023 Acute metabolic encephalopathy 09/19/2022 02/09/2023 Depression with suicidal ideation 09/01/2022 02/09/2023 Hypertensive urgency 08/03/2022 023 Abnormal EKG 07/16/2022 02/09/2023 Troponin level elevated 07/14/2022 10/0 01/2023 Bilateral pulmonary infiltrates on CXR 07/14/2022 02/09/2023 [...] Encounters Date Type Department Care Team Description 11/04/2024 5:28 AM CDT - 11/04/2024 7:55 AM CDT Emergency [facility] Emergency Medicine [address] [place] [address] Evan Taylor MD Pneumonia of right lower lobe due to infectious organism (Primary Dx); Chronic pulmonary edema; Hyperkalemia Discharge Disposition: Home or Self Care 10/28/2024 1:00 PM CDT Clinical Support [facility] [address] [place] [phone] Saskia Slaughter MSW Other specified counseling (Primary Dx) 10/21/2024 2:00 PM CDT Video Visit [facility] [address] [place] [address] Freddie Cruz Jr., MD Scrotal swelling (Primary Dx); ESRD (end stage renal disease) on dialysis (CMS/HCC); Hepatic cirrhosis, unspecified hepatic cirrhosis type, unspecified whether ascites present (CMS/HCC); Palliative care by specialist 10/14/2024 1:00 PM CDT Office Visit [facility] [address] [place] [address] Freddie Cruz Jr., MD ESRD (end stage renal disease) on dialysis (CMS/HCC) (Primary Dx); Hepatic cirrhosis, unspecified hepatic cirrhosis type, unspecified whether ascites present (CMS/HCC) 10/10/2024 1:12 AM CDT - 10/11/2024 9:27 PM CDT Hospital Encounter [facility] 3[facility] Surgical [address] [place] [address] Rossi Love DO Ovens, Lisa K, MD Kaur, Harinderjeet, MD Cirrhosis of liver with ascites (CMS/HCC) Discharge Disposition: Home or Self Care 10/09/2024 12:30 AM CDT - 10/09/2024 11:59 PM CDT Hospital Encounter [facility] Emergency Medical Services [place] [address] [phone] Jose Galindo MD Ambulance, [facility] Discharge Disposition: [facility] 10/08/2024 10:16 PM CDT - 10/09/2024 11:36 PM CDT Emergency [facility] Emergency Medicine [address] [phone] Vincent Bustillos MD Hennon, Marcus, DO Anasarca (Primary Dx); Cirrhosis of liver with ascites, unspecified hepatic cirrhosis type (CMS/HCC); Pericardial effusion; Pleural effusion Discharge Disposition: Acute Care Hospital 10/08/2024 - 10/08/2024 11:59 PM CDT Hospital Encounter [facility] Emergency Medical [place] [address] [place] [address] Ambulance, [facility] Discharge Disposition: [facility] 10/08/2024 Travel 10/03/2024 12:43 AM CDT - 10/03/2024 3:20 AM CDT Emergency [facility] Emergency Medicine [address] [facility] [address] [place] [address] Vincent Bustillos MD Dizziness (Primary Dx); Malaise; Chronic pain syndrome Discharge Disposition: Home or Self Care 10/02/2024 12:37 AM CDT - 10/02/2024 1:41 AM CDT Emergency [facility] Medicine [address] [facility] [address] [place] [address] Jose Galindo MD Chronic abdominal pain (Primary Dx) Discharge Disposition: Home or Self Care 10/02/2024 Travel 09/30/2024 - 09/30/2024 11:59 PM CDT Hospital Encounter [facility] Emergency Medical Services [place] [address] [facility] [address] [place] [address] Ambulance, [facility] Discharge Disposition: [facility] 09/29/2024 Chart Note [facility] [address] [place] [address] Darinel Toney FNP 09/28/2024 3:06 PM CDT - 09/28/2024 6:00 PM CDT [facility] [address] [address] Vincent Bustillos MD Periumbilical abdominal pain (Primary Dx); Inguinal pain, unspecified laterality; Hyperkalemia; ESRD on hemodialysis (CMS/HCC) Discharge Disposition: Home or Self Care 09/28/2024 Travel 09/27/2024 Orders Only [facility] G[facility]- [place] [address] [place] [phone] Tunde Umana MD Hepatic cirrhosis, unspecified hepatic cirrhosis type, unspecified whether ascites present (CMS/HCC) (Primary Dx) 09/19/2024 Results Follow-Up [facility] Emergency [facility] [address] [facility] [address] [place] [address] Vivian Motta, RN BLOOD CULTURE, BLOOD CULTURE 09/18/2024 4:10 PM CDT - 09/18/2024 11:59 PM CDT Hospital Encounter [facility] [address] [place] [address] Ambulance, [facility] Discharge Disposition: [facility] 09/17/2024 10:11 AM CDT - 09/17/2024 12:41 PM CDT [facility] [address] [place] [phone] Ifeanyi Sheppard DO Shortness of breath (Primary Dx); Scrotum pain; Hypertensive kidney disease with end stage chronic kidney disease on dialysis (CMS/HCC) Discharge Disposition: Home or Self Care 09/17/2024 8:15 AM CDT - 09/17/2024 11:59 PM CDT Hospital Encounter [facility] [address] [place] [address] Ambulance, [facility] Discharge Disposition: [facility] 09/13/2024 7:36 PM CDT - 09/13/2024 9:03 PM CDT [facility] [address] [place] [phone] Jose Galindo MD ESRD on hemodialysis (CMS/HCC) (Primary Dx); Cirrhosis of liver with ascites, unspecified hepatic cirrhosis type (CMS/HCC); Palliative care by specialist; Scrotal edema Discharge Disposition: Home or Self Care 09/13/2024 Travel 09/12/2024 Telephone [facility] [email or web address] [facility] [address] [place] [address] Chidi Hein Follow Up (Mal was recently evaluated by the Behavioral Health Intake team on 09/08/2024. This outreach librarian spoke to the PT/LG/POA if we could provide additional resources. Pt denied the need and this proposal lead writer asked them to reach out if we can help.) 09/05/2024 Telephone [facility] [address] [place] [address] Chidi Hein Follow Up (Mal was recently evaluated by the Behavioral Health Intake team on 09/01/1024. This outreach librarian did not contact the PT/LG/POA to offer additional resources as the pt is currently admitted to [facility].) 08/30/2024 2:12 PM CDT - 09/08/2024 7:35 PM CDT Hospital Encounter [facility] 6B Medical Surgical [address] [place] [address] Emanuel Worthy MD Patel, Taksh, MD Fariza, Tasnuva Tarannum, MD Mady, iLa Fitzgerald MD Scrotal swelling Discharge Disposition: Home or Self Care 08/30/2024 1:05 AM CDT - 08/30/2024 11:59 PM CDT Hospital Encounter [facility] Emergency Medical Services [place] [address] [phone] Vincent Bustillos MD Ambulance, [facility] Discharge Disposition: [facility] 08/30/2024 Travel 08/29/2024 11:57 PM CDT - 08/30/2024 12:15 PM CDT Emergency [facility] Emergency Medicine [address] [address] Vincent Bustillos MD Day, Shamuel M, MD Scrotal swelling (Primary Dx); Ascites due to alcoholic cirrhosis (CMS/HCC) Discharge Disposition: Acute Care Hospital 08/29/2024 - 08/29/2024 11:59 PM CDT Hospital Encounter [facility] Emergency Medical Services [place] [id number] [address] Ambulance, [facility] Discharge Disposition: [facility] 08/21/2024 4:32 PM CDT - 08/21/2024 7:25 PM CDT Emergency [facility] Emergency Medicine [address] [facility] [address] [place] [address] Jose Galindo MD ESRD on hemodialysis ([facility]) (Primary Dx); S/P abdominal paracentesis Discharge Disposition: [facility] 08/21/2024 1:00 AM CDT - 08/21/2024 11:59 PM CDT Hospital Encounter [facility] Medical [facility] [address] [place] [address] Jose Galindo MD Ambulance, [facility] Discharge Disposition: [facility] 08/21/2024 - 08/21/2024 11:59 PM CDT Hospital Encounter [facility] [address] [place] [address] Ambulance, [facility] Discharge Disposition: [facility] 08/21/2024 Travel 08/18/2024 4:53 PM CDT - 08/18/2024 6:04 PM CDT Emergency [facility] Emergency Medicine [address] [facility] [address] [place] [address] Jose Galindo MD Left knee pain, unspecified chronicity (Primary Dx); Simple chronic bronchitis ([facility]) Discharge Disposition: Home or Self Care 08/18/2024 Travel 08/17/2024 3:30 PM CDT Office Visit [facility] V[facility] [address] [address] Dre Gonzalez MD End stage renal disease on dialysis ([facility]) (Primary Dx) 08/17/2024 2:30 PM CDT Ancillary Procedure [facility] [place] [address] Dre Gonzalez MD End stage renal disease on dialysis ([facility]/HCC) 08/15/2024 Telephone [facility] [address] [place] [address] Dre Gonzalez MD Appointment Verification 08/08/2024 Results Follow-Up [facility]- [place] [address] [place] [address] Jason Perera MD CELL COUNT WITH DIFFERENTIAL, BODY FLUID, PROTEIN, BODY FLUID 07/31/2024 2:41 AM CDT - 08/08/2024 8:00 PM CDT Hospital Encounter [facility] 3[facility] Ortho Neuro [address] [place] [address] Charlie Fall, Luis Angel Almeida, Jessica Jaime MD Shaffer, Elizabeth Anne, MD Pain and swelling of knee, left Discharge Disposition: Home or Self Care from Last 3 Months Immunizations Immunization Administration Dates Next Due (ADACEL/BOOSTRIX)(10 YR UP) TDAP VACCINE, 0.5ML, IM 03/11/2017,07/15/2016,09/10/2015 (PFIZER)(12 YR UP) COVID-19 VACCINE - EMERGENCY USE AUTHORIZATION, MRNA, [id number](PF) 30 MCG/0.3 ML IM SUSP 12/29/2020,11/28/2020 (PNEUMOVAX [...] worry about transportation for future doctor visits, brick picker medication, etc.? 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 Gender Identity Not on file Sexual Orientation [...] Mass Index 25.07 11/04/2024 5:23 AM CDT Plan of Treatment Upcoming Encounters Date Type Department Care Team (Late st Contact Info) Description 12/21/2024 11:45 AM CDT Office Visit [facility] [address] [place] [address] Emerita Urban ANP [address] [place] [address] 12/21/2024 2:20 PM CDT Office Visit [facility] [address] [facility] [address] [place] [address] Brittani Mcdonnell, FLARE MAN [address] [facility] [address] [place] [address] Health Maintenance Due Date Last Done Comments HEPATITIS B VACCINES (1 of 3 - Risk Dialysis 4-dose series) 2002 COVID-19 Vaccine ( season) 2024 12/29/2020, 11/28/2020 Pre-Diabetes and Diabetes Screening 07/21/2024 07/21/2021 INFLUENZA VACCINE (#1) 2024 , 02/10/2023, 01/29/2022, Additional history exists DTAP/TDAP/TD VACCINES (4 - Td or Tdap) 03/11/2027 03/11/2017, 07/15/2016, 09/10/2015 Abdominal Aortic Aneurysm (AAA) Screening Completed 10/09/2024, 08/30/2024, 05/02/2024, Additional history exists HPV VACCINES Aged Out No longer eligi ble based on patient's age to complete this topic Medical Devices Implanted Type Area Silver Solderer Device Identifier Shelf Expiration Date Model / Serial / Lot Shama Knight 23cm [id number] Implanted:Qty : 1 on 07/26/2018 by Miguel Monzon MD Catheter Right: Chest CR BARD- [employer] 08/02/2019 [id number] / / [id number] Clip Ligating Horizon Red [id number] - Csc - [id number] Implanted:Qty : 1 on 07/08/2024 by Dre Gonzalez MD at [facility] Clip Left: Arm [employer] [id number] 03/26/2029 [id number] / / [id number] Clip Ligating Horizon Med Ti [id number] - Csc - [id number] Implanted:Qty : 1 on 07/08/2024 by Dre Gonzalez MD at [facility] Clip Left: Arm TELEFLEX- WECK CLOSURE SYS [id number] 02/08/2029 [id number] / / [id number] Dev Closure Angioseal 6fr Vip 000759 - [id number] Implanted:Qty : 1 on 11/06/2022 by Betty Day MD at [facility] Closure Device Right: Groin [facility] [employer] 05/03/2023 [id number] / / [id number] Dev Vasc Closure Vascade 6-7fr [id number] - [id number] Implanted:Qty : 1 on 11/06/2022 at [facility] Closure Device Right: Groin [employer] 12/27/2023 [id number] / / [id number] Agent Hemostat Surgicel 3x4in 1942s - [id number] Implanted:Qty : 1 on 07/08/2024 by Dre Gonzalez MD at [facility] Hemostatic Left: Arm J[employer]J- [employer] 03/03/2029 [id number] / / [id number] Stent Synergy Xd 3.5x24mm Evrlms Elut [id number] - [id number] Implanted:Qty : 1 on 11/06/2022 by Betty Day MD at [facility] Stent Right: Coronary [employer] 06/09/2024 [id number] / / [id number] Procedures Procedure Name Priority Date/Time Associated Diagnosis Comments COVID-19 ANTIGEN Stat 11/04/2024 6:01 AM CDT BASIC METABOLIC PANEL Stat 11/04/2024 6:01 AM CDT CBC WITH DIFFERENTIAL Stat 11/04/2024 6:01 AM CDT INFLUENZA VIRUS A AND B, ANTIGEN DETECTION Stat 11/04/2024 6:01 AM CDT COMPREHENSIVE METABOLIC PANEL Routine 10/11/2024 6:56 AM [...] CHEST PA OR AP 1 VW Stat 10/08/2024 11:59 PM CDT LIPASE Stat 10/08/2024 10:30 PM CDT COMPREHENSIVE METABOLIC PANEL Stat 10/08/2024 10:30 PM CDT CBC WITH DIFFERENTIAL Stat 10/08/2024 10:30 PM CDT XR CHEST PA OR AP 1 VW Stat 10/03/2024 1:15 AM CDT COMPREHENSIVE METABOLIC PANEL Stat 10/03/2024 12:43 AM CDT CBC WITH DIFFERENTIAL Stat 10/03/2024 12:43 AM CDT COMPREHENSIVE METABOLIC PANEL Stat 09/28/2024 3:49 PM CDT CBC WITH DIFFERENTIAL Stat 09/28/2024 3:49 PM CDT XR CHEST PA OR AP 1 VW Stat 09/17/2024 10:52 AM CDT BLOOD CULTURE Stat 09/17/2024 [...] CHEST PA OR AP 1 VW Stat 08/30/2024 1:20 AM CDT C-REACTIVE PROTEIN Stat 08/30/2024 12 :37 AM CDT BRAIN NATRIURETIC PEPTIDE, BNP OR PROBNP Stat 08/30/2024 12:37 AM CDT COMPREHENSIVE METABOLIC PANEL Stat 08/30/2024 12:37 AM CDT CBC WITH DIFFERENTIAL Stat 08/30/2024 12:37 AM CDT XR CHEST PA OR AP 1 VW Stat 08/21/2024 5:01 PM CDT LACTIC ACID Stat 08/21/2024 4:48 PM CDT COMPREHENSIVE METABOLIC PANEL Stat 08/21/2024 4:37 PM CDT CBC WITH DIFFERENTIAL Stat 08/21/2024 4:37 PM CDT XR KNEE 3 VW LEFT Stat 08/18/2024 5:2 2 PM CDT XR CHEST PA OR AP 1 VW Stat 08/18/2024 5:09 PM CDT COVID-19 ANTIGEN Stat 08/18/2024 [...] FUNCTION PANEL Routine 08/06/2024 11:06 AM CDT HEMOGLOBIN A1C Routine 07/21/2021 from Last 3 Months or Most Recently Relevant to Health Maintenance Results * COVID-19 ANTIGEN (11/04/2024 6:01 AM CDT) Only the most recent of4 resultswithin the time period is included. COVID-19 ANTIGEN Presumptive Negative Presumptive Negative 11/04/2024 6:28 AM CDT [facility] Upper Respiratory ANTERIOR NARES SWAB / Unknown Collection / Unknown 11/04/2024 6:01 AM CDT 11/04/2024 6:05 AM CDT [facility] - 11/04/2024 6:28 AM CDT Erma SARS antigen test has been authorized by FDA under an emergency use authorization (EUA) and has been authorized only for the detection of proteins from SARS-CoV-2 and influenza, not for any other viruses or pathogens. Erma SARS Antigen PHILLIP is intended for the simultaneous qualitative detection and differentiation of nucleocapsid protein antigen from SARS-CoV-2 directly from nasopharyngeal (FLARE MAN) and nasal (NS) swab specimens collected from [...] O RDERABLES Final Result Performing Organization Address City/[facility]/ZIP Co de Phone Number [facility] CLIA # [id number] [address] [place] [id number] * INFLUENZA VIRUS A AND B, ANTIGEN DETECTION (11/04/2024 6:01 AM CDT) Only the most recent of4 resultswithin the time period is included. Pathologist [facility] INFLUENZA A AG NOT DETECTED Not Detected 11/04/2024 6:28 AM CDT [facility] INFLUENZA B AG NOT DETECTED Not Detected 11/04/2024 6:28 AM CDT [facility] Upper Respiratory ENTIRE NASOPHARYNX / Unknown Collection / Unknown 11/04/2024 6:01 AM CDT 11/04/2024 6:05 AM CDT [facility] - 11/04/2024 6:28 AM CDT Negative results do not rule out infection. If clinically indicated, consider PCR testing which is more sensitive than antigen testing. If PCR testing is desired, consult with your local laboratory as sample recollection may be required. Evan Taylor MD MICROBIOLOGY GENERAL O RDERABLES Final Result Performing Organization Address City/[facility] Co de Phone Number [facility] CLIA # [id number] [address] [place] [address] * (ABNORMAL) CBC WITH DIFFERENTIAL (11/04/2024 6:01 AM CDT) Only the most recent of20 resultswithin the time period is included. Pathologist [facility] WBC 4.6 4.2 - 9.1 K/uL 11/04/2024 6:11 AM [facility] RBC 3.65(L) 4.63 - 6.08 M/uL 11/04/2024 6:11 AM [facility] HEMOGLOBIN 9.8(L) 13.7 - 17.5 g/dL 11/04/2024 6:11 AM [facility] HEMATOCRIT 31.2(L) 40.1 - 51.0 % 11/04/2024 6:11 AM [facility] MCV 85.5 79.0 - 92.2 fL 11/04/2024 6:11 AM [facility] MCH 26.8 25.7 - 32.2 pg 11/04/2024 6:11 AM [facility] MCHC 31.4(L) 32.3 - 36.5 g/dL 11/04/2024 6:11 AM [facility] RDW 18.6(H) 11.0 - 14.5 % 11/04/2024 6:11 AM [facility] RDW-STDEV 57.7(H) 36.9 - 56.9 fL 11/04/2024 6:11 AM [facility] PLATELETS 187 130 - 400 K/uL 11/04/2024 6:11 AM [facility] MPV 10.1 10.0 - 14.8 fL 11/04/2024 6:11 AM [facility] NEUTROPHILS 63 34 - 68 % 11/04/2024 6:11 AM [facility] LYMPHOCYTES 15(L) 22 - 53 % 11/04/2024 6:11 AM [facility] MONOCYTES 11 5 - 12 % 11/04/2024 6:11 AM [facility] EOSINOPHILS 9(H) 1 - 7 % 11/04/2024 6:11 AM [facility] BASOPHILS 2(H) 0 - 1 % 11/04/2024 6:11 AM [facility] IMMATURE GRANULOCYTES 0 % 11/04/2024 6:11 AM CDT [facility] NEUTROPHIL ABSOLUTE 2.94 1.78 - 5.38 K/uL 11/04/2024 6:11 AM T [facility] LYMPHOCYTE ABSOLUTE 0.70(L) 1.20 - 3.40 K/uL 11/04/2024 6:11 AM [facility] MONOCYTE ABSOLUTE 0.49 0.30 - 0.82 K/uL 11/04/2024 6:11 AM T [facility] EOSINOPHIL ABSOLUTE 0.43 0.04 - 0.54 K/uL 11/04/2024 6:11 AM [facility] BASOPHILS ABSOLUTE 0.07 0.01 - 0.08 K/uL 11/04/2024 6:11 AM [facility] IMMATURE GRANULOCYTES ABSOLUTE 0.01 K/uL 11/04/2024 6:11 AM [facility] Blood BLOOD SPECIMEN / Unknown Venipuncture / Unknown 11/04/2024 6:01 AM CDT 11/04/2024 6:05 AM CDT us Evan Taylor MD HEMATOLOGY ORDERABLES Fi nal Result [facility] # [id number] [address] [place] [address] * (ABNORMAL) BASIC METABOLIC PANEL (11/04/2024 6:01 AM CDT) Only the most recent of3 resultswithin the time period is included. SODIUM 132(L) 136 - 145 mmol/L 11/04/2024 6:24 AM [facility] POTASSIUM 6.0(H) 3.5 - 5.1 mmol/L 11/04/2024 6:24 AM [facility] Comment:Moderate hemolysis p resent. Can cause significant falsely elevated result. Redraw if indicated. CHLORIDE 98 98 - 107 mmol/L 11/04/2024 6:24 AM [facility] CO2 28 22 - 29 mmol/L 11/04/2024 6:24 AM [facility] CALCIUM 10.1(H) 8.6 - 10.0 mg/dL 11/04/2024 6:24 AM [facility] BUN 17 6 - 20 mg/dL 11/04/2024 6:24 AM [facility] CREATININE 3.59(H) 0.67 - 1.17 mg/dL 11/04/2024 6:24 AM [facility] GLUCOSE 91 74 - 99 mg/dL 11/04/2024 6:24 AM [facility] GFR 21(L) >=60 mL/min/1.7 3 sq meter 11/04/2024 6:24 AM [facility] Comment:eGFR calculated with 2020 CKD-EPI equation. Vegetarian diet, extremely high or low muscle mass, and may affect results. Cystatin C with Glomerular Filtration Rate is a suitable alternative for these patients. ANION GAP 6 5 - 20 mmol/L 11/04/2024 6:24 AM [facility] Blood BLOOD SPECIMEN / Unknown Venipuncture / Unknown 11/04/2024 6:01 AM CDT 11/04/2024 6:05 AM CDT Evan Taylor MD CHEMISTRY ORDERABLES Fin al Result [facility] # [id number] [address] [place] [address] * (ABNORMAL) COMPREHENSIVE METABOLIC PANEL (10/11/2024 6:56 AM CDT) Only the most recent of17 resultswithin the time period is included. SODIUM 134(L) 136 - 145 mmol/L 10/11/2024 7:38 AM COUNTS INCLUDE 234 BEDS AT [facility] POTASSIUM 5.9(H) 3.5 - 5.1 mmol/L 10/11/2024 7:38 AM [facility] CHLORIDE 98 98 - 107 mmol/L 10/11/2024 7:38 AM COUNTS INCLUDE 234 BEDS AT THE [facility] CO2 27 22 - 29 mmol/L 10/11/2024 7:38 AM [facility] CALCIUM 9.2 8.6 - 10.0 mg/dL 10/11/2024 7:38 AM [facility] BUN 26(H) 6 - 20 mg/dL 10/11/2024 7:38 AM [facility] CREATININE 5.50(H) 0.67 - 1.17 mg/dL 10/11/2024 7:38 AM [facility] GLUCOSE 81 74 - 99 mg/dL 10/11/2024 7:38 AM [facility] TOTAL PROTEIN 6.1(L) 6.4 - 8.3 g/dL 10/11/2024 7:38 AM [facility] ALBUMIN 2.3(L) 3.5 - 5.2 g/dL 10/11/2024 7:38 AM [facility] HEALTH SERVICES BILIRUBIN TOTAL 0.3 0.0 - 1.0 mg/dL 10/11/2024 7:38 AM [facility] ALKALINE PHOSPHATASE 129 40 - 129 U/L 10/11/2024 7:38 AM [facility] AST 12 10 - 50 U/L 10/11/2024 7:38 AM [facility] ALT 7 <=50 U/L 10/11/2024 7:38 AM [facility] GFR 12(L) >=60 mL/min/1. 73 sq meter 10/11/2024 7:38 AM [facility] Comment:eGFR calculated with 2020 CKD-EPI equation. Vegetarian diet, extremely high or low muscle mass, and may affect results. Cystatin C with Glomerular Filtration Rate is a suitable alternative for these patients. ANION GAP 9 9 - 20 mmol/L 10/11/2024 7:38 AM [facility] Blood Collection / Unknown 10/11/2024 6:56 AM CDT 10/11/2024 6:59 AM T us Lenka Spears MD CHEMISTRY ORDERABLES Final Resul t Performing Organization Address [facility] Co de Phone Number [facility] CLIA # [id number] [address] [place] [address] * ANAEROBIC/AEROBIC CULTURE W GRAM STAIN (10/10/2024 9:21 AM CDT) Only the most recent of2 resultswithin the time period is included. CULTURE No aerobic or anaerobic growth 10/13/2024 8:26 AM CDT [facility] GRAM STAIN No organisms observed 10/13/2024 8:26 AM CDT [facility] GRAM STAIN No Polymorphonuclear WBC 10/13/2024 8:26 AM CDT [facility] Body fluid ENTIRE SEROUS MEMBRANE OF PERITONEUM / Unknown Collection / Unknown 10/10/2024 9:21 AM CDT 10/10/2024 11:02 AM CDT Rossi Love DO MICROBIOLOGY - GENERAL ORDER RENE Final Result Performing Organization Address [facility] Co de Phone Number [facility] CLIA # [id number] [address] [place] [address] * CELL COUNT WITH DIFFERENTIAL, BODY FLUID (10/10/2024 9:21 AM CDT) Only the most recent of3 resultswithin the time period is included. APPEARANCE, BODY FLUID Clear 10/10/2024 11:44 AM CDT [facility] COLOR, FLD Yellow 10/10/2024 11:44 AM CDT [facility] TOTAL NUCLEATED CELLS, FLD (AUTO) 140 No Ref Range Estab /ul 10/10/2024 11:44 AM CDT [facility] TOTAL RBC'S, FLD (AUTO) <3,000 No Ref Range Estab /ul 10/10/2024 11:44 AM CDT [facility] LYMPHOCYTE, FLD 21 No Ref Range Estab % 10/10/2024 11:44 AM CDT [facility] EOSINOPHIL, FLD 2 No Ref Range Estab % 10/10/2024 11:44 AM CDT [facility] MONOCYTE/MACRO PHAGE, FLD 77 No Ref Range Estab % 10/10/2024 11:44 AM CDT [facility] Body fluid ENTIRE SEROUS MEMBRANE OF PERITONEUM / Unknown Collection / Unknown 10/10/2024 9:21 AM CDT 10/10/2024 11:02 AM CDT us Rossi Love DO BODY FLUIDS AND STOOLS Final Result [facility] CLIA # [id number] [address] [place] [address] * US ASPIRATION ABDOMEN (10/10/2024 9:19 AM CDT) Only the most recent of3 resultswithin the time period is included. Anatomical [...] the proposed needle course. A 10-cm 5 Canadian Yueh centesis catheter was inserted. 1400 ml [...] the proposed needle course. A 10-cm 5 [place] Yueh centesis catheter was inserted. 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: [id number] : 1980 Requested By: Order Number: [id number] Reading : Tess Cuellar Measurements Intervals [place] Rate: 66 P: 52 AR: 364 QRS: 81 QRSD: 108 T: 129 QT: 412 QTc: 431 Interpretive Statements Sinus rhythm with 1st degree AV block with occasional premature ventricular complexes Septal infarct, age undetermined T wave abnormality, consider lateral ischemia Abnormal ECG Electronically Signed On 10-10-2024 6:58:15 CDT by Tess Cuellar Procedure Note Provider, Historical - 10/10/[address] [address] Test Date: 2024-10-10 Pat Name: [facility] Department: 12 Room: [address] [place] [address] Gender: Male 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: [id number] : 1980 Requested By: Order Number: [id number] Reading : Tess Cuellar Measurements Intervals [place] Rate: 66 P: 52 AR: 364 QRS: 81 QRSD: 108 T: 129 QT: 412 QTc: 431 Interpretive Statements Sinus rhythm with 1st degree AV block with occasional prematureventricular complexes Septal infarct, age undetermined T wave abnormality, consider lateral ischemia Abnormal ECG Electronically Signed On 10-10-2024 6:58:15 CDT by Tess Cuellar us Rossi Love DO ECG ORDERABLES Final Result INTERFACE SYSTEM Refer to clinic/hospital department * (ABNORMAL) PTT (10/10/2024 4:36 AM CDT) PTT 42.5(H) 24.8 - 37.2 seconds 10/10/2024 5:01 AM CDT [facility] Blood Venipuncture / Unknown 10/10/2024 4:36 AM CDT 10/10/2024 4:47 AM CDT Narrative [facility] - 10/10/2024 5:01 AM CDT Therapeutic Range: Hi-level PE/DVT heparin protocol 80.1 - 95.0 sec Lo-level PE/DVT heparin protocol 70.1 - 85.0 sec Cardiac Heparin Protocol 70.1 - 100.0 sec Rossi Love DO HEMATOLOGY ORDERABLES Final Result [facility] CLIA # [id number] [address] [place] [address] * (ABNORMAL) PROTIME-INR (10/10/2024 4:36 AM CDT) Only the most recent of2 resultswithin the time period is included. Pathologist [facility] PROTIME 16.9(H) 12.7 - 14.9 Seconds 10/10/2024 5:01 AM T [facility] INR 1.3(H) 0.8 - 1.2 10/10/2024 5:01 AM T [facility] Blood Venipuncture / Unknown 10/10/2024 4:36 AM CDT 10/10/2024 4:47 AM CDT Narrative [facility] - 10/10/2024 5:01 AM CDT Expected Values for INR: DVT/PE Goal INR 2.5; range 2.0 - 3.0 Valve Replacement Tissue Goal INR 2.5; range 2.0 - 3.0 Valve Replacement Mechanical Goal INR 3.0; range 2.5 - 3.5 POST-OR Goal INR 2.5; range 2.0 - 3.0 or Goal INR 3.0; range 2.5 - 3.5 Atrial Fibrillation Goal INR 2.5; range 2.0 - 3.0 Ischemic Stroke Goal INR 2.5; range 2.0 - 3.0 Rossi Love DO HEMATOLOGY ORDERABLES Final Result [facility] CLIA # [id number] [address] [place] [address] * (ABNORMAL) PHOSPHORUS (10/10/2024 4:36 AM CDT) PHOSPHORUS 7.1(H) 2.5 - 4.5 mg/dL 10/10/2024 5:35 AM CDT [facility] Blood Venipuncture / Unknown 10/10/2024 4:36 AM CDT 10/10/2024 4:49 AM CDT Rossi Love DO CHEMISTRY ORDERABLES Final R esult Performing Organization Address [facility] de Phone Number [facility] CLIA # [id number] [address] [address] * MAGNESIUM LEVEL (10/10/2024 4:36 AM CDT) Only the most recent of2 resultswithin the time period is included. MAGNESIUM 2.3 1.6 - 2.6 mg/dL 10/10/2024 5:35 AM CDT [facility] Blood Venipuncture / Unknown 10/10/2024 4:36 AM CDT 10/10/2024 4:49 AM CDT Rossi Love DO CHEMISTRY ORDERABLES Final R esult Performing Organization Address [facility] Co de Phone Number [facility] CLIA # [id number] [address] [place] [address] * AMMONIA LEVEL (10/10/2024 4:36 AM CDT) AMMONIA 42.9 16.0 - 60.0 umol/L 10/10/2024 5:20 AM CDT [facility] Blood, venous 10/10/2024 4:3 6 AM CDT 10/10/2024 4:47 AM CDT us Rossi Love DO CHEMISTRY ORDERABLES Final R esult [facility] CLIA # [id number] [address] [facility] [place] [address] * CT ABDOMEN PELVIS WO CONTRAST (10/09/2024 [...] Cirrhotic configuration of liver with mild splenomegaly. Vincent Bustillos MD CT ORDERABLES Final Result * XR CHEST PA OR AP 1 VW (10/08/2024 11:59 PM CDT) Only the most recent of6 resultswithin the time period is included. Anatomical [...] calcified granulomas. Remainder the chest is unremarkable. Vincent Bustillos MD DIAGNOSTIC IMAGING ORDERABLE S Final Result * LIPASE (10/08/2024 10:30 PM CDT) LIPASE 22 13 - 60 U/L 10/09/2024 12:24 AM CDT [facility] Blood BLOOD SPECIMEN / Unknown Collection / Unknown 10/08/2024 10:30 PM CDT 10/09/2024 12:06 AM CDT us Vincent Bustillos MD CHEMISTRY ORDERABLES Final R esult [facility] CLIA # [id number] [address] [place] [address] * BLOOD CULTURE (09/17/2024 10:30 AM CDT) Only the most recent of2 resultswithin the time period is included. BLOOD CULTURE No growth 09/24/2024 12:50 PM CDT [facility] Blood (Peripheral) Venipuncture / Unknown 09/17/2024 10:30 AM CDT 09/17/2024 10:52 AM CDT Ifeanyi Sheppard DO MICROBIOLOGY - GENERAL ORDERAB LES Final Result [facility] CLIA # [id number] [address] [place] [address] * LACTIC ACID (09/17/2024 10:25 AM CDT) Only the most recent of3 resultswithin the time period is included. LACTIC ACID 0.9 <=2.0 mmol/L 09/17/2024 11:01 AM CDT [facility] Blood BLOOD SPECIMEN / Unknown Venipuncture / Unknown 09/17/2024 10:25 AM CDT 09/17/2024 10:45 AM CDT [employer] DO CHEMISTRY ORDERABLES Final Res ult Performing Organization Address [facility] Co de Phone Number [facility] CLIA # [id number] [address] [place] [address] * (ABNORMAL) BRAIN NATRIURETIC PEPTIDE, BNP OR PROBNP (09/17/2024 10:25 AM CDT) Only the most recent of2 resultswithin the time period is included. PROBNP, N TERMINAL >70,000(H ) 0 - 125 pg/mL 09/17/2024 11:14 AM CDT [facility] Comment: INTERPRETIVE COMMENT based on diagnosis: Diagnostic [...] 10:25 AM CDT 09/17/2024 10:40 AM CDT [employer] DO CHEMISTRY ORDERABLES Final Res ult Performing Organization Address [facility]/ZIP Co de Phone Number [facility] CLIA # [id number] [address] [place] [address] * US TESTES W SCROTAL DOPPLER LTD [...] - 99 mg/dL 09/03/2024 8:19 AM CDT [facility] SPECIMEN SOURCE, GLUCOSE POC Venous 09/03/2024 8:19 AM CDT [facility] Blood, whole 09/03/2024 8:19 AM CDT 09/03/2024 8:26 AM CDT Giovanny Key MD POINT OF CARE TESTING Final Result [facility] CLIA # [id number] [facility] [address] [place] [address] * US ABDOMEN LIMITED (09/01/2024 7:00 PM [...] Poor visualization of the pancreas. Jaylene FELIX ORDERABLES Final Result * PROTEIN, BODY FLUID (08/31/2024 8:20 AM CDT) Only the most recent of2 resultswithin the time period is included. PROTEIN, FLD 3.1 g/dL 08/31/2024 9:11 AM CDT [facility] Body fluid ENTIRE SEROUS MEMBRANE OF PERITONEUM / Unknown Collection / Unknown 08/31/2024 8:20 AM CDT 08/31/2024 8:31 AM CDT Narrative [facility] - 08/31/2024 9:11 AM CDT Interpretive Criteria: Transudate: <2.0 g/dL Exudate: >2.0 g/dL The reference range and other method performance specifications are unavailable for this body fluid. Comparison of this result with the concentration in the blood, serum, or plasma is recommended. us Katheryn Williamson MD BODY FLUIDS AND STOOLS Final Res ult [facility] CLIA # [id number] [address] [address] * AMYLASE, BODY FLUID (08/31/2024 8:20 AM CDT) AMYLASE, FLD 5 U/L 08/31/2024 9:11 AM CDT [facility] Comment: Interpretive Criteria: Amylase Fluid Normal (U/L): [...] BODY FLUIDS AND STOOLS Final Res ult [facility] CLIA # [id number] [address] [place] [address] * ALBUMIN LEVEL, BODY FLUID (08/31/2024 8:20 AM CDT) ALBUMIN, FLD 1.3 g/dL 08/31/2024 9:11 AM CDT [facility] Body fluid ENTIRE SEROUS MEMBRANE OF PERITONEUM / Unknown Collection / Unknown 08/31/2024 8:20 AM CDT 08/31/2024 8:31 AM CDT Narrative [facility] - 08/31/2024 9:11 AM CDT Interpretive Criteria: Transudate: Serum-Ascites gradient >1.1 g/dL Exudate: Serum-Ascites gradient <1.1 g/dL The reference range and other method performance specifications are unavailable for this body fluid. Comparison of this result with the concentration in the blood, serum or plasma is recommended. Katheryn Williamson MD BODY FLUIDS AND STOOLS Final Res ult [facility] CLIA # [id number] [address] [place] [address] [place] [address] * CYTOLOGY, NON GYNE (08/31/2024 8:20 AM CDT) Only the most recent of2 resultswithin the time period is included. CASE REPORT Medical Cytology Report Case: [id number] Authorizing Provider: Katheryn Williamson MD Collected: 08/31/2024 08:20 AM Ordering Location: [facility] Received: 08/31/2024 10:09 AM 6B Medical Surgical Pathologist: Symone Schneider MD Specimen: Peritoneal (ascitic) fluid 12:21 PM CDT [facility] FINAL DIAGNOSIS A. Ascitic fluid, ThinPrep and cell block - No malignant cells identified - Mesothelial cells and histiocytes present Symone Schneider MD [id number] 12:21 PM CDT [facility] at 1221 CDT GROSS DESCRIPTION A. Peritoneal (ascitic) fluid - 50 ml cloudy yellow fluid processed for ThinPrep and cell block A2. 12:21 PM CDT [facility] CLINICAL INFORMATION No Dx found. 12:21 PM CDT [facility] COMMENT The [employer] voice-activated dictation system may have been used [...] determined by the Diagnostic Immunohist[facility] Laboratory of [facility] in compliance with CLIA'88 regulations. Some of these tests rely on the use of analyte specific reagents and are subject to specific labeling requirements by the FDA. All controls show appropriate reactivity. This testing was developed by the [facility]ohist[facility] of [facility]. It has not been cleared or approved by the FDA. The FDA has determined that such clearance or approval is not necessary. 12:21 PM CDT [facility] Body fluid ASCITIC FLUID SPECIMEN / Unknown Collection / Unknown 08/31/2024 8:20 AM CDT 08/31/2024 10:09 AM CDT Katheryn Williamson MD PATHOLOGY/CYTOLOGY ORDERABLES Fi nal Result Performing Organization Address City/[facility]/ZIP Co de Phone Number [facility] CLIA # [id number] [address] [place] [id number] * (ABNORMAL) IRON, TIBC, AND PERCENT SATURATION (08/31/2024 6:58 AM CDT) IRON 28(L) 59 - 158 ug/dL 08/31/2024 2:17 PM CDT [facility] TIBC 129(L) 250 - 450 ug/dL 08/31/2024 2:17 PM CDT [facility] IRON % SATURATION 22 15 - 60 % 08/31/2024 2:17 PM CDT [facility] Blood Venipuncture / Unknown 08/31/2024 6:58 AM CDT 08/31/2024 7:15 AM CDT Venkat Dawn NP CHEMISTRY ORDERABLES Final R esult [facility] CLIA # [id number] [address] [place] [address] * (ABNORMAL) FERRITIN (08/31/2024 6:58 AM CDT) FERRITIN 983.7(H) 30.0 - 400.0 ng/mL 08/31/2024 2:17 PM CDT [facility] Blood Venipuncture / Unknown 08/31/2024 6:58 AM CDT 08/31/2024 7:15 AM CDT us Venkat Dawn NP CHEMISTRY ORDERABLES Final R esult Performing Organization Address [facility] Co de Phone Number [facility] CLIA # [id number] [address] [address] * (ABNORMAL) ALBUMIN LEVEL (08/31/2024 6:58 AM CDT) ALBUMIN 2.4(L) 3.5 - 5.2 g/dL 09/01/2024 2:56 PM CDT [facility] Blood Venipuncture / Unknown 08/31/2024 6:58 AM CDT 08/31/2024 7:15 AM CDT us Jaylene Vera PA CHEMISTRY ORDERABLES Final Resul t Performing Organization Address [facility] de Phone Number [facility] CLIA # [id number] [facility] [address] * (ABNORMAL) C-REACTIVE PROTEIN (08/30/2024 12:37 AM CDT) CRP 55.8(H) <5.0 mg/L 08/30/2024 3:13 AM CDT [facility] Blood BLOOD SPECIMEN / Unknown Collection / Unknown 08/30/2024 12:37 AM CDT 08/30/2024 12:41 AM CDT us Vincent Bustillos MD CHEMISTRY ORDERABLES Final R esult Performing Organization Address City/[facility]/ZIP Co de Phone Number [facility] CLIA # [id number] [address] [place] [address] * XR KNEE 3 VW LEFT (08/18/2024 5:22 PM CDT) Anatomical Region Laterality Modality Lower Extremity Computed [...] of the left lower extremity contain a [id number] amount of calcified plaque. Procedure Note Victor [...] of the left lower extremity contain a iwxoq-uv-[id number] amount of calcified plaque. IMPRESSION: 1. No acute osseous abnormalities or significant degenerative changes of the left knee. 2. Peripheral artery disease of the left lower extremity. Jose Galindo MD DIAGNOSTIC IMAGING OR DERABLES Final Result * US DIALYSIS ACCESS IMAGING (08/17/2024 2:48 PM CDT) Anatomical Region Laterality Modality Upper Extremity Ultrasound 08/17/2024 2:31 PM CDT Narrative 08/17/2024 2:55 PM CDT [facility] [address] [place] [address] [place] [address] Noninvasive Vascular Lab Upper Extremity Hemodialysis Access Follow-up Evaluation Patient: Mal Solis Study ID: US DIALYSIS ACCJean Gender: Crystal : 1980 Age: 43 Room: Height: Weight: BSA: Pt status: Outpatient Study Date: 08/17/2024 Study Time: 02:31:17 PM BSA: Ordering: Dre Gonzalez Interpreting:Dre Gonzalez Care Partner: Ana Dorado Summary Impression: 1. Normal arterial [...] radial artery to the left cephalic vein: [facility] is accredited with the Intersocietal Commission for the Accreditation of Vascular Laboratories (ICAVL) Prepared and Electronically Authenticated Dre Gonzalez Confirmed 08/17/2024 14:55 Procedure Note Dre Gonzalez MD - 08/17/2024 [facility] [address] [place] [address] Noninvasive Vascular Lab Upper Extremity Hemodialysis Access Follow-up Evaluation Patient: Mal Solis Study ID: US DIALYSIS ACCJean Gender: M : 1980 Age: 43 Room: Height: Weight: BSA: Pt status: Outpatient Study Date: 08/17/2024 Study Time: 02:31:17 PM BSA: Ordering: Dre Gonzalez Interpreting:Dre Gonzalez Care Partner: Ana Dorado Summary Impression: 1. Normal arterial [...] radial artery to the left cephalic vein: [facility] is accredited withthe [facility] Commission for the Accreditation of Vascular Laboratories (ICAVL) Prepared and Electronically Authenticated Dre Gonzalez Confirmed 08/17/2024 14:55 Dre Gonzalez MD US ORDERABLES Final Result * TELEMETRY REPORT (08/09/2024 4:00 PM CDT) Provider Scanning ECG ORDERABLES Final Result * (ABNORMAL) RENAL FUNCTION PANEL (08/06/2024 11:06 AM CDT) SODIUM 136 136 - 145 mmol/L 08/06/2024 11:44 AM T [facility] POTASSIUM 4.1 3.5 - 5.1 mmol/L 08/06/2024 11:44 AM T [facility] CHLORIDE 100 98 - 107 mmol/L 08/06/2024 11:44 AM T [facility] CO2 27 22 - 29 mmol/L 08/06/2024 11:44 AM T [facility] CALCIUM 9.3 8.6 - 10.0 mg/dL 08/06/2024 11:44 AM [facility] BUN 19 6 - 20 mg/dL 08/06/2024 11:44 AM [facility] CREATININE 4.81(H) 0.67 - 1.17 mg/dL 08/06/2024 11:44 AM [facility] GLUCOSE 80 74 - 99 mg/dL 08/06/2024 11:44 AM [facility] ALBUMIN 2.6(L) 3.5 - 5.2 g/dL 08/06/2024 11:44 AM [facility] PHOSPHORUS 4.6(H) 2.5 - 4.5 mg/dL 08/06/2024 11:44 AM [facility] GFR 15(L) >=60 mL/min/1. 73 sq meter 08/06/2024 11:44 AM [facility] Comment:eGFR calculated with 2020 CKD-EPI equation. Vegetarian diet, extremely high or low muscle mass, and may affect results. Cystatin C with Glomerular Filtration Rate is a suitable alternative for these patients. ANION GAP 9 9 - 20 mmol/L 08/06/2024 11:44 AM [facility] Blood Venipuncture / Unknown 08/06/2024 11:06 AM CDT 08/06/2024 11:12 AM CDT Zari Hobbs DO CHEMISTRY ORDERABLES Final Resu lt [facility] CLIA # [id number] [address] [place] [address] * HEMOGLOBIN A1C (07/21/2021) ABSTRACTED HGB A1C 4.0 Blood 07/21/2021 Abstract Provider CHEMISTRY ORDERABLES Final Res ult from Last 3 Months or Most Recently Relevant to Health Maintenance Insurance [place] RX [employer] Medicare Part D RX INFOCROSSING Medicaid RX HAYS PLANS (INTERNAL) [facility] [employer] [place] [address] [place] Advance Directives For more information, please contact: [phone] * Full Code (Latest Code Status on [...] 4:49 PM 05/06/2024 4:08 PM Care Teams Matrix Inspector Relationship Specialty Start Date End Date Martin, Delio Gadiel, MD [address] [place] [phone] PCP - General Family Practice 01/30/24
--- OUTSIDE RECORDS SUMMARY | 2024-11-04 09:25 | XMS_ITS | Encounter Summary ---
Author Organization [facility] Address [address] [place] [address] Care Team Providers Care Note Taker Name Role Phone Mal Junior MD Primary Care Provider [phone] Reason for Referral * Outpatient Services (Routine) - Closed Specialty Diagnoses / Procedures Referred By Liz santana Referred To Contact Diagnoses CKD (chronic kidney disease), stage IV (CMS/HCC) Essential hypertension, benign Procedures US BIOPSY ABDOMEN Hank Cruz MD Referral ID Status Reason Start Date Expiration Date Visits Re quested Visits Authorized [id number] Closed 12/01/2017 01/01/2019 1 1 Encounter Details Date Type Department Care Team (Latest Contact Info) Description 12/01/2017 Ancillary Orders [facility] Ultrasound [address] [place] [phone] Hank Cruz MD NO ADDRESS ON FILE [...] COVID-19 03/29/2020 03/29/2020 03/29/2020 11:5 5 PM [employer] documented as of this encounter Care Teams Note Taker Relationship Specialty Start Date End Date Mal Junior MD [address] [phone] PCP - General Family Practice 12/10/17 documented as of this encounter
--- OUTSIDE RECORDS SUMMARY | 2024-11-04 09:25 | XMS_ITS | Encounter Summary ---
Author Organization [facility] Address [address] [place] [address] Care Team Providers Care Rag Willow Operator Name Role Phone Mal Junior MD Primary Care Provider [phone] Reason for Referral * Radiology Services (Routine) - Closed Specialty Diagnoses / Procedures Referred By Liz t Referred To Contact Radiology Diagnoses Chronic kidney disease, stage V (CMS/HCC) Procedures IR VENOUS ACCESS Hank Cruz MD [facility] Interventional Radiology [address] [place] [address] Phone: tel: fax: Referral ID Status Reason Start Date Expiration Date Visits Re quested Visits Authorized [id number] Closed 07/22/2018 08/22/2019 1 1 Encounter Details Date Type Department Care Team (Latest Contact Info) Description 07/22/2018 Ancillary Orders [facility] Interventional Radiology [address] [place] [address] Hank Cruz MD NO ADDRESS [...] fluoroscopic guidance into the IVC. A 5 Slovak dilator was placed over the guidewire to maintain access. Subsequently lidocaine 1% with epinephrine was used to anesthetize the anterior right chest wall. A stab wound was made and a GlidePath catheter was tunneled subcutaneously to the venous access site. The 5 Slovak dilator was replaced over the guidewire with [...] Tunneled dialysis catheter insertion. Narrative Procedure Note Miguel Monzon MD - 07/26/2018 IMPRESSION: Please see [...] fluoroscopic guidance into the IVC. A 5 Slovak dilator was placed over the guidewire to maintain access. Subsequently lidocaine 1% with epinephrine was used to anesthetize the anterior right chest wall. A stab wound was made and a GlidePath catheter was tunneled subcutaneously to the venous access site. The 5 Slovak dilator was replaced over the guidewire with [...] was minimal. IMPRESSION: Tunneled dialysis catheter insertion. 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
--- OUTSIDE RECORDS SUMMARY | 2024-11-04 09:25 | XMS_ITS | Clinical Summary ---
Author Organization [facility] Address [address] [place] [address] Phone Care Team Providers Care Automated Cutting Machine Operator Name Role Phone Mal Junior MD Primary Care Provider [phone] Allergies Active Allergy Reactions Criticality Noted Date [...] this topic Medical Devices Implanted Type Area Plant General Manager Device Identifier Shelf Expiration Date Model / Serial / Lot Cath Dyls Glidepath 23cm [id number] Implanted:Qty : 1 on 07/26/2018 by Miguel Monzon MD Catheter Right: Chest CR [employer] 08/02/2019 [id number] / / [id number] Insurance MEDICAID [place] MED[place]ARE PART A AND B Advance Directives For more information, please contact: [phone] * Full Code (Latest Code Status on File) Date Activated Date Inactivated Comments 01/17/2018 7:14 AM 01/19/2018 4:38 PM * Full Code Date Activated Date Inactivated Comments 12/09/2017 5:16 PM 12/10/2017 5:45 PM Care Teams Automated Cutting Machine Operator Relationship Specialty Start Date End Date Mal Junior MD [address] [facility] [address] [place] [id number] PCP - General Family Practice 12/10/17
--- OUTSIDE RECORDS SUMMARY | 2024-11-04 09:25 | XMS_ITS | Encounter Summary ---
Author Organization [facility] Address 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 Gender Identity Not on file Sexual Orientation Not on file documented as of this encounter Plan of Treatment Upcoming Encounters Date Type Department Care Team (Late st Contact Info) Description 12/21/2024 11:45 AM CDT Office Visit [facility] Supportive Care [facility] [address] [place] [phone] Emerita Urban, ANP [address] [place] [address] 12/21/2024 2:20 PM CDT Office Visit [facility] [address] [place] [address] Brittani Mcdonnell, CAROL [address] [place] [address] documented as of this encounter Visit Diagnoses Not on filedocumented in this encounter Additional Health Concerns Infection Onset Date Last Indicated Resolved Time R/O COVID-19 10/09/2024 10/09/2024 10/09/2024 12:5 7 AM CDT R/O COVID-19 11/04/2024 11/04/2024 11/04/2024 5:45 AM CDT R/O COVID-19 11/04/2024 11/04/2024 11/04/2024 6:28 AM CDT documented as of this encounter Care Teams In Home Nanny Relationship Specialty Start Date End Date Delio Salazar MD [address] [place] [id number] PCP - General Family Practice 01/30/24 documented as of this encounter
== END 2024-11-01 15:47 | disposition home or self-care (01) ==
LOC: ER 10-31 00:46 → MEDSURG 10-31 02:13
PROVIDERS: Internal Medicine Nephrology; Admitting Provider Internal Medicine; Emergency Provider Emergency Medicine; PCP Family Medicine; Visit Provider Internal Medicine
DX: J81.1 Chronic pulmonary edema (principal); I12.0 Hypertensive chronic kidney disease with stage 5 chronic kidney disease or end stage renal disease; N18.6 End stage renal disease; Z99.2 Dependence on renal dialysis; Z79.82 Long term (current) use of aspirin; K74.60 Unspecified cirrhosis of liver; R18.8 Other ascites; I27.20 Pulmonary hypertension, unspecified; J44.9 Chronic obstructive pulmonary disease, unspecified; D64.9 Anemia, unspecified; F17.210 Nicotine dependence, cigarettes, uncomplicated; I50.30 Unspecified diastolic (congestive) heart failure; F32.A Depression, unspecified; Z95.5 Presence of coronary angioplasty implant and graft; Z99.81 Dependence on supplemental oxygen
CPT/HCPCS: 36415; 36416; 49083; 71045; 80053; 80503; 82306; 82310; 82962; 83605; 83735; 83970; 84100; 85025; 86140; 86706; 86803; 87040; 87070; 87075; 87205; 87340; 89050; 90935; 93005; 94640; 94664; 96374; 96375; 96376; 99285; G0378; J2270; J2405; J2919; J7611; J7644; J7799; J9999; P9046

== ENCOUNTER → 2024-11-28 12:48 | Day surgery (SDC) | payer MEDICARE, MEDICAID, SELFPAY ==
--- NOTE | 2024-11-28 12:53 | US_ITS ---
WS: [id number] ULTRASOUND-GUIDED THERAPEUTIC AND DIAGNOSTIC PARACENTESIS Procedure, risks, and complications have been explained to the patient. Consent is obtained. Utilizing aseptic technique and 1% buffered lidocaine, a small dermatome was made through which a 5 Citizen [place] Yueh catheter was inserted. Approximately 4800 ml of clear peritoneal fluid was obtained without difficulty. No complications encountered. US/US paracentesis abd w [id number] IMPRESSION: Uncomplicated paracentesis yielding 4800 ml of peritoneal fluid.
[2024-11-28 13:01] VITALS: BP 132/71; PULSE 68; RESP 18; TEMP 36.8; O2SAT 92
[2024-11-28 13:16] VITALS: BMI 26.4
[2024-11-28 13:35] VITALS: BP 121/70; PULSE 64; RESP 18; O2SAT 97
[2024-11-28 13:51] LABS: Albumin Peritoneal Fluid 1.8 g/dL; Color, Peritoneal Fluid Yellow (Pale Yellow)
[2024-11-28 13:52] LABS: Mononuclear #, Pertinoneal Fl 0.060 10^3/uL; Mononuclear %, Pertinoneal Fl 93.700 %; Polynuclear # Cells, Perit 0.004 10^3/uL; Polynuclear % Cells,Perit 6.300 %; RBC Pertioneal Fluid 0 10^3/uL; WBC Peritoneal Fluid 64 /uL
[2024-11-28 13:53] LABS: Cyto Order Verification Order Verified
[2024-11-28 13:54] LABS: Appearance, Peritoneal Fluid Cloudy (Clear); Pathology Referral Yes
== END | disposition home or self-care (01) ==
PROVIDERS: Radiology Diagnostic Radiology; PCP Family Medicine; Visit Provider Internal Medicine
PROC: (CPT 49082; principal; 2024-11-28 12:00)
DX: K74.60 Unspecified cirrhosis of liver (principal)
CPT/HCPCS: 49083; 80503; 82042; 84157; 87070; 87075; 87205; 88112; 88305; 89050

== ENCOUNTER 2024-12-05 11:30 | Day surgery (SDC) | payer MEDICARE, MEDICAID, SELFPAY ==
--- NOTE | 2024-12-05 11:35 | US_ITS ---
WS: [id number] ULTRASOUND-GUIDED PARACENTESIS CLINICAL INFORMATION: cirrhosis of liver with ascites COMPARISON: None. Procedure Informed consent: The risks, benefits, and alternatives of the procedure were discussed with the patient. Verbal and written consent was obtained. Timeout: A timeout was performed to confirm the correct patient, procedure, and site. Preparation: A suitable skin site was identified. The patient was prepped and draped in usual sterile fashion. Lidocaine 1% was used for local anesthesia. Catheter: 4 Bhut[place] One-step Mobile Sorceryeh catheter. Side: RIGHT lower quadrant. Fluid Volume: 8000 ml Color: Clear yellow DISPOSITION: Discarded safely. Complications: None. Patient disposition: Discharged from the department in stable condition. US/US paracentesis abd w [id number] IMPRESSION: Uncomplicated ultrasound-guided paracentesis. Removal of 8000 cc
[2024-12-05 11:41] VITALS: BP 176/102; PULSE 94; RESP 18; TEMP 36.6; O2SAT 96
[2024-12-05] MEDS: ondansetron 2 mg/ML SDV 2 mL 4 MG IVP (12:33)
[2024-12-05] MEDS: albumin 50 G/200 ML BAG 60 G IV (12:40)
[2024-12-05 12:48] LABS: Appearance, Peritoneal Fluid Cloudy (Clear); Color, Peritoneal Fluid Pale Yellow (Pale Yellow); Cyto Order Verification No Order
[2024-12-05 12:52] LABS: Mononuclear #, Pertinoneal Fl 0.117 10^3/uL; Mononuclear %, Pertinoneal Fl 97.500 %; Polynuclear # Cells, Perit 0.003 10^3/uL; Polynuclear % Cells,Perit 2.500 %; RBC Pertioneal Fluid 1 10^3/uL; WBC Peritoneal Fluid 120 /uL
[2024-12-05 14:24] LABS: Albumin Peritoneal Fluid 1.5 g/dL
== END 2024-12-05 13:10 | disposition home or self-care (01) ==
LOC: GILAB 11:30
PROVIDERS: Radiology Neuroradiology; PCP Family Medicine; Visit Provider Internal Medicine
PROC: (CPT 49082; principal; 2024-12-05 12:00)
DX: K74.69 Other cirrhosis of liver (principal); R18.8 Other ascites
CPT/HCPCS: 49083; 80503; 82042; 84157; 87070; 87075; 87205; 89050; 96365; J2405; P9046

== ENCOUNTER 2024-12-19 12:23 | Day surgery (SDC) | payer MEDICARE, MEDICAID, SELFPAY ==
[2024-12-19 12:35] VITALS: BP 138/86; PULSE 67; RESP 18; O2SAT 97
--- NOTE | 2024-12-19 12:39 | US_ITS ---
WS: [id number] ULTRASOUND-GUIDED PARACENTESIS CLINICAL INFORMATION: cirrhosisof liver with ascites COMPARISON: None. Procedure Informed consent: The risks, benefits, and alternatives of the procedure were discussed with the patient. Verbal and written consent was obtained. Timeout: A timeout was performed to confirm the correct patient, procedure, and site. Preparation: A suitable skin site was identified. The patient was prepped and draped in usual sterile fashion. Lidocaine 1% was used for local anesthesia. Catheter: 4 Yakut One-step 99testseh catheter. Side: LEFT lower quadrant. Fluid Volume: 6000 ml Color: Bloody yellow DISPOSITION: Discarded safely. Complications: None. Patient disposition: Discharged from the department in stable condition. US/US paracentesis abd w [id number] IMPRESSION: Uncomplicated ultrasound-guided paracentesis. Removal of 6000 cc
[2024-12-19 14:18] LABS: Albumin Peritoneal Fluid 1.7 g/dL
[2024-12-19 14:40] LABS: Cyto Order Verification Order Verified
== END 2024-12-19 13:50 | disposition home or self-care (01) ==
LOC: GILAB 12:24
PROVIDERS: PCP Family Medicine; Visit Provider Internal Medicine
PROC: (CPT 49082; principal; 2024-12-19 12:00)
DX: K74.69 Other cirrhosis of liver (principal); R18.8 Other ascites
CPT/HCPCS: 49083; 82042; 84157; 87070; 87075; 87205; 88112; 88305

== ENCOUNTER → 2024-12-26 11:22 | Day surgery (SDC) | payer MEDICARE, MEDICAID, SELFPAY ==
[2024-12-26 11:31] VITALS: BMI 27.0
--- NOTE | 2024-12-26 11:37 | US_ITS ---
WS: [id number] ULTRASOUND-GUIDED THERAPEUTIC AND DIAGNOSTIC PARACENTESIS Procedure, risks, and complications have been explained to the patient. Consent is obtained. Utilizing aseptic technique and 1% buffered lidocaine, a small dermatome was made through which a 5 [place] Yueh catheter was inserted. Approximately 8500 ml of light red peritoneal fluid was obtained without difficulty. No complications encountered. US/US paracentesis abd w [id number] IMPRESSION: Uncomplicated paracentesis yielding 8500 ml of peritoneal fluid.
[2024-12-26 11:38] VITALS: BP 148/84; PULSE 70; RESP 20; TEMP 36.7; O2SAT 95
[2024-12-26 13:35] LABS: Body Fluid Polynuclear #Cells 0.046; Monocytes # Body Fluid 0.164; Mononuclear WBC Body Fluid % 78.100 %; Polynuclear WBC Body Fluid % 21.900 %
[2024-12-26 13:53] LABS: Cyto Order Verification No Order
[2024-12-26 13:54] LABS: Albumin Peritoneal Fluid 1.5 g/dL
[2024-12-26 13:56] LABS: Color, Body Fluid YELLOW
[2024-12-26 13:57] LABS: Apprearance, Body Fluid BLOODY; PATH Referral YES
== END ==
LOC: GILAB 11:22
PROVIDERS: Radiology Diagnostic Radiology; PCP Family Medicine; Visit Provider Internal Medicine
PROC: (CPT 49082; principal; 2024-12-26 12:00)
DX: K74.60 Unspecified cirrhosis of liver (principal); R18.8 Other ascites
CPT/HCPCS: 49083; 80503; 82042; 84157; 87070; 87075; 87205; 89050

== ENCOUNTER 2025-01-11 17:05 | Emergency (ER) | payer OTHER, MEDICAID, SELFPAY ==
--- OUTSIDE RECORDS SUMMARY | 2025-01-11 17:11 | XMS_ITS ---
Author Organization [facility] Address [address] [place] [address] Care Team Providers Care Terminal Clerk Name Role Phone Hank Cruz MD Unavailable [phone] Delio Salazar MD Primary Care Provider + Dialysis Access Sites Type Status Location Placement Date Removal Da te Hemodialysis AV Access Forearm Active Left Forearm - Anterior Procedures Procedure Name Priority Date/Time Associated Diagnosis Comments SERUM HEPATITIS PANEL Routine 01/22/2014 4:31 PM CDT from Last 3 Months or Most Recently Relevant to Health Maintenance Allergies Active Allergy Reactions Criticality Noted Date Comments Haloperidol Other (See comments) Low 09/19/2023 Pt states he gets mean and screams all night Lisinopril Swelling Medium 07/16/2022 Nifedipine Hives,Swelling Medium 04/11/2020 Spironolactone Eye irritation Medium 07/16/2022 Medications albuterol HFA (ProAir HFA) 90 mcg/actuation inhaler Inhale 1 puff every 6 hours 02/26/20 18 Active amLODIPine (NORVASC) 10 mg tablet Take 1 tablet (10 mg total) by mouth 06/03/19 19 Active aspirin 81 mg enteric coated tablet Take 1 tablet (81 mg total) by mouth daily Active atorvastatin (LIPITOR) 40 mg tablet Take 1 tablet (40 mg total) by mouth nightly Active RenaPlex-D 800 mcg-12.5 mg -2,000 unit tablet Take 1 tablet by mouth every evening 09/22/19 23 Active fluticasone propionate (FLONASE) 50 mcg/actuation nasal spray Administer 2 sprays into affected nostril(s) daily 05/02/20 21 Active hydrALAZINE (APRESOLINE) 100 mg tablet Take 1 tablet (100 mg total) by mouth every 8 (eight) hours Active losartan (COZAAR) 50 mg tablet Take 2 tablets (100 mg total) by mouth daily 11/18/19 23 Active naloxone (NARCAN) 4 mg/actuation spray,non-aerosol EMERGENCY USE ONLY ADMINISTER ONE SPRAY ( 4 MG ) IN ONE NOSTIL ONE TIME. MAY REPEAT IN ALTERNATING NOSTRILS EVERY 2-3 MINUTES UNTIL RESPONSIVE OR EMS ARRIVES 09/27/[address] (PROTONIX) 40 mg EC tablet Take 1 tablet (40 mg total) by mouth daily 07/20/19 21 Active cyclobenzaprine (FLEXERIL) 10 mg tablet Take 1 tablet (10 mg total) by mouth 2 (two) times a day as needed for muscle spasms 20 tablet 09/19/19 24 Active umeclidinium (INCRUSE ELLIPTA) 62.5 mcg/actuation blister with device Inhale 1 puff (62.5 mcg total) daily 01/25/20 24 Active carvediloL (COREG) 25 mg tablet Take 1 tablet (25 mg total) by mouth 2 (two) times a day with meals 01/24/20 24 025 Active minoxidiL (LONITEN) 2.5 mg tablet Take 1 tablet (2.5 mg total) by mouth daily 03/24/20 24 Active isosorbide mononitrate ER (IMDUR) 120 mg 24 hr tablet Take 1 tablet (120 mg total) by mouth daily 04/02/20 24 Active acetaminophen (TYLENOL) 325 mg tabletIndications:Fev er,Pain Take 2 tablets (650 mg total) by mouth every 6 (six) hours as needed for pain 04/02/20 24 Active polyethylene glycol (MIRALAX) 17 gram/dose bulk powderIndications:con stipation Take 17 g by mouth daily as needed (constipation) 04/02/20 24 Active sevelamer (RENVELA) 800 mg tabletIndications:Adriel al Osteodystrophy with Hyperphosphatemia Take 2 tablets (1,600 mg total) by mouth 3 (three) times a day with meals 180 tablet 1 04/02/20 24 Active oxyCODONE (ROXICODONE) 5 mg immediate release tabletIndications:Fozia n Take 1 tablet (5 mg total) by mouth every 6 (six) hours as needed for pain 30 tablet 04/02/20 24 Active Active Problems Problem Noted Date Diagnosed Date Scrotal pain 04/01/2024 Assessment & Plan (04/02/2024 10:16 AM MOTOR ANALYST): This is the reason pt was sent to our hospital. Seen by urology in ED and no further acute evaluation warranted. Likely component of scar tissue related to prior infarction/orchiectomy. This is exacerbated by persistent pressure related to anasarca/ascites. - pt wishes to follow up with a urologist in [place] given distance to [place] - plan home today if able to arrange ride home I have personally spent 40 minutes today including time with the patient, time reviewing data, time discussing with other providers, and time on discharge planning and documentation. Anasarca 04/01/2024 Assessment & Plan (04/02/2024 10:11 AM MOTOR ANALYST): HD and DUF as tolerated. Pt wishes to return home and go to usual dialysis center - s/p LVP and will need LVP's prn Abdominal pain 03/24/2024 Assessment & Plan (03/24/2024 1:20 PM MOTOR ANALYST): Suspect baseline given cirrhosis, hernia repair and ongoing umbilical hernia (reducible). Patient had BM 03/24, encouraged to keep this up as outpatient. - ok to discharge with some pain medications Cellulitis of drainage site following surgery Assessment & Plan (03/25/2024 9:57 AM MOTOR ANALYST): Erythema around FRANK drain, reportedly with purulent drainage from FRANK drain site and keflex not helping with symptoms. Difficult to assess as patient has erythema around drain but no other involvement; unclear if responded to antibiotics. No concern for sepsis at this time. Will provide linezolid alone. - surg c/s: plan to remove FRANK drain after paracentesis, possibly late 03/23. Pt may be stable to discharge after - zosyn (03/21), linezolid (03/21- ) for 5d course. Meds delivered 03/24 but pt needs transportation to discharge 03/25, may have extra dose of linezolid. - BCx (03/21): ngtd Mitral valve stenosis, severe 01/23/2024 Assessment & Plan (04/02/2024 10:14 AM MOTOR ANALYST): TTE (01/21): EF 74%, G2DD, mod calcified mitral valve annulus + severe mitral stenosis, PASP 33mHg Outpatient follow up with Cardiology in [facility] Assessment & Plan (03/22/2024 5:27 PM MOTOR ANALYST): Noted on TTE 01/2024 - To be managed outpatient per last cardiology consult note (prior admission) Assessment & Plan (01/23/2024 10:13 AM CDT): 01/21 noted per ECHO, cardiology consulted - mitral stenosis can be addressed as an outpatient Discharge planning issues 01/19/2024 Assessment & Plan (01/24/2024 9:43 AM CDT): 01/18 direct admission overnight; medically complex, multiple consulting services; PT/OT evaluation, not medically stable, ADD >1wk 01/20 POD1, added Linezolid to abx regimen 01/21 POD2, continue IV abx 01/22 erythema improving, continue IV abx, started PO diet,will likely DC Tuesday 01/23 Patient is medically stable for discharge, SW/CM updated. 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 TTE 01/22/24: LVEF 74%, G2DD, mildly dilated RV, calcified mitral annulus with severe mitral stenosis, mild AR/TR, PASP 33. - Continue ASA, atorva 40, Coreg 25 BID, Imdur 240 daily Assessment & Plan (01/23/2024 1:22 PM CDT): -H/o STEMI s/p PCI/MARYAM to RCA 11/06/22 at OSH -No antiplatelet medication at home per patient, ?daily ASA 81, hold 01/20 Cardiology consulted, started home ASA 01/21 Ok to continue aspirin monotherapy. Prasugrel was discontinued by his outpatient supervisor claims Pulmonary HTN 01/19/2024 Assessment & Plan (03/21/2024 11:03 PM MOTOR ANALYST): Evaluated by pHTN service at [facility] - felt to be Group 5 (2/2 ESRD) and Group 1 (cirrhosis), though likely also has Group 2/3 component in the context of severe mitral stenosis and pulmonary emphysema. - Per [facility] pHTN group, it is very unlikely the patient is going to be a candidate ofr pulmonary vasodilator therapy - Baseline chronic hypoxemia requiring 3-4 L O2 Assessment & Plan (01/24/2024 9:42 AM CDT): -Follows with OSH ([facility]) Pulmonology --From most recent OSH Pulm note 12/26/23, noted most recent R side heart pressure documented from 07/2023, 65 (bl 20) -Repeat TTE ordered this admission 01/21 TTE results pending 01/22 Cardiology s/o follow up outpatient, ascites could be related to congestion, though volume should be managed by his dialysis Follow up with cardiology outpatient Pulmonary emphysema 01/19/2024 Assessment & Plan (04/02/2024 10:14 AM MOTOR ANALYST): On home O2 at times though pt states he doesn't actually use it. Outpt f/u with pulmonary in [facility] Assessment & Plan (03/21/2024 11:03 PM MOTOR ANALYST): Continue incruse ellipta, PRN albuterol Assessment & Plan (01/19/2024 10:28 AM CDT): -?Follows with OSH Pulmonology -Home regimen: Incruse ellipta, albuterol > continued -Home 4L NC O2, continued -Goal SpO2 >88% -No PFTs on file to review Chronic pain 01/19/2024 Assessment & Plan (01/24/2024 9:44 AM CDT): Chronic pain on home narcotics; home med: norco 5-325mg TID PRN -Hold while inpatient -IV dilaudid for pain control while NPO, NGT 01/21 transition to PO pain medication Continue home regimen Encounter for medication review 01/19/2024 Assessment & Plan (01/19/2024 10:13 AM CDT): -01/18 med list updated in [facility] History of pulmonary embolism 01/19/2024 Assessment & Plan (03/21/2024 10:56 PM MOTOR ANALYST): Unable to find records of PE, but noted RUE DVT 05/10/22 ([facility]). - No longer on anticoagulation Assessment & Plan (01/23/2024 1:22 PM CDT): -Per chart review, h/o PE previously on DOAC -Currently not on any home anticoagulation medication -Unable to find any imaging in chart -LED ordered this admission- no evidence of DVT -VTE ppx orders only SBO (small bowel obstruction) 01/18/2024 Assessment & Plan (01/24/2024 9:42 AM CDT): #SBO 2/2 incarcerated R inguinal hernia - SEE INCARCERATED INGUINAL HERNIA AND UMBILICAL HERNIA -Transfer from OSH, arrives as direct admission with NGT in place -CT A/P repeated at [facility] on arrival - Large right inguinal hernia containing multiple loops of non-obstructed bowel resulting in high grade small bowel obstruction proximal to this hernia. Within the hernia sac, there is mesenteric stranding and edema. The bowel loops are mildly thickened although they are decompressed. large volume ascites and anasarca -NGT dark, feculent output > confirmed in gastric body on KUB -IV PPI for SUP -NPO, NGT to LIWS -mIVF, low rate given ESRD -Both umbilical and inguinal hernias unable to be reduced at bedside given large amount of ascites 01/19 ([facility]): OR for RIHR, mesh, R orchiectomy (Urology), FRANK drain 01/20 POD1 Dermabond intact to right groin transverse incision, incision is reddened and warm to touch, started Linezolid, FRANK drain with 128 mL/ bloody output, will resume home ASA, trend Hgb, likely restart home anticoagulation tomorrow 01/21 POD2, dermabond intact to right groin, redness improving, continue IV abx, FRANK serosanginous 95 mL/24h, NGT removed yesterday, started CLD, and home medications 01/22 POD3, dermabond remains intact, redness improving, FRANK 60 mL/24h serosanginous, +BM advanced to a regular diet 01/23 POD4, erythema continues to improve, will discharge with FRANK drain 100mL/ serosanginous output on the day of discharge, will empty daily and log output, bring the log to the follow up appointment, prescribed Bactrim DS x7 days ( MRSA colonization history) Cultures 01/18 Ascites - No Growth Final Antibiotics Ceftriaxone 01/18 - (SPB ppx) Linezolid 01/20- 01/23 Bactrim DS 01/23-01/30 Pathology 01/19 pending Coronary artery disease 01/18/2024 Assessment & Plan (01/23/2024 1:31 PM CDT): - h/o STEMI s/p PCI/MARYAM (RCA 11/06/22) > admission at OSH -Per patient, no current antiplatelet or anticoagulation, ?daily ASA 81 -Home meds: lipitor, imdur, ?ASA 81 > held -Repeat TTE ordered this admission 01/20 restarted home ASA 01/21 Cardiology consulted. EKG - biatrial enlargement, sinus rhythm 1st degree AV block, hx of lateral infarct, LV hypertrophy Cardiology recommendations:continue aspirin monotherapy. Prasugrel was discontinued by his outpatient supervisor claims Cirrhosis of liver with ascites 01/18/2024 Assessment & Plan (04/02/2024 10:13 AM MOTOR ANALYST): Follows with GI in [facility]. Per chart review, unclear if has actual cirrhosis or just hepatic fibrosis. Gets weekly LVPs. No prior EV's or PSE though ?SBP in the past. - interestingly, ascites fluid has been exudative on last few zac here. Cell count low and cultures negative. Could be related to prior surgery in 01/25 though unclear why exudative. Formal cytology not sent though senior staff review by the lab without obvious malignancy - will need continued outpt f/u - would consider evaluation for unusual infections or malignancy with next para - as pt wants to leave here [facility], no plan for further acute evaluation Assessment & Plan (03/23/2024 6:12 PM MOTOR ANALYST): History of pwkzswjbi-ky-wsohsro ascites. Poor candidate for TIPS based on consult documentation from 01/2024 due concern for pulmonary HTN/right-sided heart disease, ?history of hepatic encephalopathy. Low SAAG on prior ascites studies argues against portal HTN. Has hx SBP. S/p LVP at [facility] on 03/19 with 7L removed. - para (03/23): 118 nucleated cells, 4L off - OSH para (03/19): 154 nucleated cells - Continue lactulose, titrate to 3-5 BM/day Assessment & Plan (01/24/2024 9:44 AM CDT): -Unknown etiology of cirrhosis -Follows with OS ([facility]) Gastroenterology in [place], [place] -Last clinic visit 09/07/23 > referred to [facility] Hepatology for TIPS evaluation, no [facility] documentation -Most recent EGD 11/07/22, negative for varices -Unable to start diuretics d/t ESRD on HD -Home meds: lactulose, low Na diet, ?PPI -Weekly paracentesis, Mondays, per patient 2-4L removal per session, last 01/10 -MELD Na 23 on admission (01/18) -Hepatology consult -Starting IV rocephin while NPO for SBP ppx -01/18 Procedure team consult for LVP, RUQ US ordered per recs ---8.25L ascites removed, albumin replacement ordered 01/19 GI recommending Liver US with doppler- likely ascites NOT due to cirrhosis, more likely cardiac in nature, recommend Vitamin Kx3 for elevated INR (1.6) 01/20 consulted cardiology, TTE pending 01/21 reached out to procedure team for paracentesis, patient has an outpatient paracentesis scheduled for Wednesday 01/24 Continue scheduled Paracentesis Incarcerated inguinal hernia 01/18/2024 Assessment & Plan (01/21/2024 10:25 AM CDT): -Per patient RIGHT inguinal hernia present for approx 8mths -Has seen prior OSH providers and deemed poor surgical candidate d/t other commodities -Urology consult for possible intra-op assistance if orchiectomy needed > updated on canceled case 01/18, available for intra-op assistance if needed -01/18 R inguinal hernia, containing bowel on CT on arrival, scrotum erythematous, painful, unable to reduce d/t ascites overload. No concern for acute bowel ischemia at this time, hold on OR -01/19 OR today for hernia repair SEE SBO ESRD (end stage renal disease) on dialysis 01/17 Assessment & Plan (04/02/2024 10:14 AM MOTOR ANALYST): HD per renal Assessment & Plan (03/24/2024 1:21 PM MOTOR ANALYST): Anuric, HD TTS via LUE AVF. Received dialysis 03/24 - renal c/s: iHD T//Thu - has chart prescriptions of both phoslo + renvela. Phoslo now, consider renvela if I-nikos high Assessment & Plan (01/23/2024 1:23 PM CDT): -Per patient ESRD on HD x approx 7yrs -ESRD 2/2 HTN; T/Th/Sat schedule, no UOP at baseline -Last HD 01/15 -Nephro consulted -AVF in LUE -01/18 likely plan for HD session today; would prefer patient get LVP with procedure team prior to HD session today -01/20 fistula present to left wrist, dialysis today -01/22 continue dialysis per outpatient schedule T/R/S Hypertension Assessment & Plan (04/02/2024 10:14 AM MOTOR ANALYST): Home meds; outpt f/u Assessment & Plan (03/23/2024 6:15 PM MOTOR ANALYST): Patient does not recall the bulk of his medications. Medications reconciled through review of his latest available dialysis center documentation. Favor adjusting at discharge, including limiting hydralazine as able. - Continue amlodipine 10 daily, Coreg 25 BID, hydralazine 100 TID, Imdur 240 daily, minoxidil 2.5 TID (down from 10 TID at last [facility] discharge) - resume losartan 03/24 - Does not seem to be on Clonidine anymore, d/c at discharge Assessment & Plan (01/24/2024 9:43 AM CDT): -Home regimen: amlodipine, coreg, clonidine, hydral, losartan, minoxidil -Hold all PO meds while NPO/NGT -Uncontrolled HTN c/b ESRD on HD -Nephro following -IV metoprolol and hydral while NPO 01/20 continue IV Hydralazine and Metoprolol- BP 160-150s\100s 01/21 started PO diet, restarted Amlodipine, Minoxidil and Hydralazine 01/22 BP 170s/90-100s restarted remainder home home medications: Losartan, Clonidine and Coreg Continue home medications, follow up with PCP and cardiology outpatient Social History Tobacco Use Types Packs/Day Years Used Date Smoking Tobacco: Every Day Cigarettes 0.5 20 Tobacco Cessation:Ready to Q uit: Not Asked; Counseling Given: Not Answered [facility] Utilities Answer Date Recorded In the past 12 months has Mobile Fuel, Coin, or water [employer] threatened to shut off services in your home? No 03/25/2024 Social Connection and Isolation Panel Answer Date Recorded In a typical week, how many times do you talk on the phone with family, friends, or neighbors? Once a week 03/25/2024 How often do you get together with friends or re latives? Once a week 03/25/2024 How often do you attend sabianist or confucianist serv ices? Never 03/25/2024 Do you belong to any clubs o r organizations such as sabianist groups, unions, fraternal or athletic groups, or school groups? No 03/25/2024 How often do you attend meet ings of the clubs or organizations you belong to? Never 03/25/2024 Are you , , di vorced, , never , or living with a partner? 03/25/2024 AUDIT-C Answer Date Recorded Q1: How often do you have a drink containing alcohol? Never 01/20/2024 Q2: How many drinks containi ng alcohol do you have on a typical day when you are drinking? Patient does not drink Q3: How often do you have si x or more drinks on one occasion? Never 01/20/2024 Overall Financial Resource Strain (CARDIA) Answe r Date Recorded How hard is it for you to pa y for the very basics like food, housing, medical care, and heating? Not hard at all 03/25/2024 PHQ-2 Answer Date Recorded PHQ-2 Total Score 6 03/25/2024 Hunger Vital Sign Answer Date Recorded Within the past 12 months, y ou worried that your food would run out before you got the money to buy more. Never true 03/25/20 24 Within the past 12 months, t he food you bought just didn't last and you didn't have money to get more. Never true 03/25/2024 PRAPARE - Transportation Answer Date Re corded In the past 12 months, has l ack of transportation kept you from medical appointments or from getting medications? No 03/05 In the past 12 months, has l ack of transportation kept you from meetings, work, or from getting things needed for daily living? No 03/25/2024 PHQ-9 Answer Date Recorded PHQ-9 Total Score 19 03/25/2024 Housing Stability Vital Sign Answer Ezio e Recorded In the last 12 months, was t here a time when you were not able to pay the mortgage or rent on time? No 03/25/2024 In the past 12 months, how m any times have you moved where you were living? 0 03/25/2024 At any time in the past 12 m [facility], were you homeless or living in a detention (including now)? No 03/25/2024 Personal Safety Answer Date Recorded Have you ever been in or are you currently in a harmful physical or emotional relationship or is someone making you feel afraid or unsafe? Denies 04/01/2024 Sex and Gender Information Value Date Recorded Sex Assigned at Not on file Legal Sex Male 7:34 PM MOTOR ANALYST Gender Identity Not on file Sexual Orientation Not on file Last Filed Vital Signs Vital Sign Reading Time Taken Comments Blood Pressure 159/92 04/02/2024 10:10 AM MOTOR ANALYST Pulse 71 04/02/2024 10:10 AM MOTOR ANALYST Temperature 36.3 C (97.3 F) 04/02/2024 10:10 AM MOTOR ANALYST Respiratory Rate 18 04/02/2024 10:10 AM MOTOR ANALYST Oxygen Saturation 95% 04/02/2024 10:10 AM MOTOR ANALYST Inhaled Oxygen Concentration - - Weight 79.8 kg (176 lb) 04/02/2024 5:40 AM MOTOR ANALYST Height 185.4 cm (6' 1 ) 04/01/2024 6:10 AM MOTOR ANALYST Body Mass Index 23.22 04/01/2024 6:10 AM MOTOR ANALYST Results * Serum Hepatitis panel (01/22/2014 4:31 PM CDT) HCV ab Non-Reacti ve Non-Reacti ve HISTORICAL RESULTS HBV surface ag Non-Reacti ve Non-Reacti ve HISTORICAL RESULTS HBV core ab, IgM Non-Reacti ve Non-Reacti ve HISTORICAL RESULTS HAV ab, IgM Non-Reacti ve Non-Reacti ve HISTORICAL RESULTS Serum 01/22/2014 4:31 PM CDT us Roshni Bynum MD LAB BLOOD ORDERABLES Final Resu lt HISTORICAL RESULTS from Last 3 Months or Most Recently Relevant to Health Maintenance
--- OUTSIDE RECORDS SUMMARY | 2025-01-11 17:11 | XMS_ITS | Clinical Summary ---
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 Cook Name Role Phone Delio Salazar MD Primary [...] 03/05/20 21 Active naloxone (NARCAN) 4 mg/spray [place], Non-Aerosol EMERGENCY USE ONLY: Administer 1 spray [...] Delayed Release (E.C.)Indication s:Coronary artery disease involving levelock coronary artery of levelock heart without angina pectoris Take 1 tablet by mouth once daily 100 Tablet 1 10/19/19 24 Active atorvastatin (LIPITOR) 40 mg tabletIndication s:Coronary artery disease involving levelock coronary artery of levelock heart without angina pectoris take 1 tablet by mouth once daily at bedtime 100 Tablet 1 10/22/19 24 Active carvediloL (COREG) 25 mg tabletIndication s:Essential hypertension,Cor onary artery disease involving levelock coronary artery of levelock heart without angina pectoris TAKE 1 & 1/2 (ONE & ONE-HALF) TABLETS BY MOUTH TWICE DAILY WITH MEALS 180 Tablet 07/05/19 25 Active calcium ACETATE (PHOSLO) 667 mg Capsule Take 667 mg by mouth post-proc every 8 hours. 12/09/19 23 Active nitroglycerin (NITROSTAT) 0.4 mg Tablet, Sublingual Place 1 Tablet under tongue. 08/22/19 22 Active diclofenac sodium (VOLTAREN) 1 % gel [...] Tablets 112 Tablet 12/17/19 25 025 Active famotidine (PEPCID) 20 mg tabletIndication s:Gastroesophage al reflux disease without esophagitis Take 1 Tablet (20 mg) by mouth 2 times daily. 60 Tablet 3 12/22/19 25 Active umeclidinium (INCRUSE ELLIPTA) 62.5 mcg/actuation Disk with DeviceIndication s:Chronic obstructive pulmonary disease, unspecified COPD type (CMS/HCC) Take 1 Puff by inhalation daily. 30 Each 2 12/22/19 25 026 Active ipratropium-albu teroL (DUONEB) 0.5 mg-3 mg(2.5 mg base)/3 mL Solution for NebulizationIndi cations:Chronic obstructive pulmonary disease, unspecified COPD type (CMS/HCC) Take 3 mL by inhalation every 6 hours as needed for Shortness of Breath. Dispense 1 box 1 Each 2 12/22/19 25 Active albuterol sulfate HFA 90 mcg/actuation aerosol inhalerIndicatio ns:Chronic obstructive pulmonary disease, unspecified COPD type (CMS/HCC) Take 1 Puff by inhalation every 6 hours. 8.5 Gram 2 12/22/19 25 Active Blood Pressure Monitor (Blood Pressure Kit) KitIndications:E ssential hypertension Use daily 1 Kit 1 12/22/19 25 Active nebulizerIndicat ions:Chronic obstructive pulmonary disease, unspecified COPD type (CMS/HCC) Length of need 99 months Nebulizer with compressor, Kit: Disposable Nebulizer Kit, 2 per month, filters , areosol mask: Yes. Name of Medication duoneb 1 Each 12/22/19 25 Active metoclopramide HCl (REGLAN) 5 mg tablet Take 1 Tablet (5 mg) by mouth 3 times daily as needed for Nausea/Emesis. 15 Tablet 12/22/19 25 Active HYDROmorphone (DILAUDID) 4 mg tabletIndication s:Palliative care by specialist,ESRD (end stage renal disease) on dialysis (CMS/HCC),Hepati c cirrhosis, unspecified hepatic cirrhosis type, unspecified whether ascites present (CMS/HCC) Take 1 Tablet (4 mg) by mouth every 6 hours as needed for Pain. 01/24-02/21 Max Daily Amount: 4 Tablets 100 Tablet 01/25/20 25 02/21/ 025 Active sertraline (ZOLOFT) 25 mg tablet Take 1 Tablet (25 mg) by mouth daily. 30 Tablet 1 12/22/19 25 Active HYDROmorphone (DILAUDID) 4 mg tabletIndication s:Palliative care by specialist,ESRD (end stage renal disease) on dialysis (CMS/HCC),Hepati c cirrhosis, unspecified hepatic cirrhosis type, unspecified whether ascites present (CMS/HCC) Take 1 Tablet (4 mg) by mouth every 6 hours as needed for Pain. 12/27-01/24 Max Daily Amount: 4 Tablets 100 Tablet 12/31/19 25 025 Active albuterol sulfate HFA 90 mcg/actuation aerosol inhaler Take 1 Puff by inhalation every 6 hours. 8.5 Gram 2 08/19/19 25 025 Discontinu ed(Reorder ) umeclidinium (INCRUSE ELLIPTA) 62.5 mcg/actuation Disk with Device Take 1 Puff by inhalation daily. 30 Each 2 08/19/19 25 025 Discontinu ed(Reorder ) HYDROmorphone (DILAUDID) 4 mg tabletIndication s:Palliative care by specialist Take 1 Tablet (4 mg) by mouth every 6 hours as needed for Pain. 11/18/24-12/16/24 Max Daily Amount: 4 Tablets 112 Tablet 11/19/19 25 025 ipratropium-albu teroL (DUONEB) 0.5 mg-3 mg(2.5 mg base)/3 mL Solution for Nebulization Take 3 mL by inhalation every 6 hours as needed for Shortness of Breath. Dispense 1 box 1 Each 11/05/19 25 025 Discontinu ed(Reorder ) HYDROmorphone (DILAUDID) 4 mg tabletIndication s:Palliative care by specialist,ESRD (end stage renal disease) on dialysis (CMS/HCC),Hepati c cirrhosis, unspecified hepatic cirrhosis type, unspecified whether ascites present (CMS/HCC) Take 1 Tablet (4 mg) by mouth every 6 hours as needed for Pain. 12/27-01/24 Max Daily Amount: 4 Tablets 100 Tablet 12/28/19 25 025 Discontinu ed(Other) Active Problems Problem Noted Date Diagnosed Date [...] organism 11/22/2022 02/09/2023 Acute blood loss anemia 11/07/202201/2023 NSTEMI (non-ST elevated myoc ardial infarction) 11/05/2022 [...] Encounters Date Type Department Care Team Description [facility] [address] [id number] Freddie Cruz Jr., MD Palliative care by specialist; ESRD (end stage renal disease) on dialysis (CMS/HCC); Hepatic cirrhosis, unspecified hepatic cirrhosis type, unspecified whether ascites present (CMS/HCC) 12/29/2024 [facility] Supportive Care [facility] [address] [phone] Freddie Cruz Jr., MD Palliative care by specialist; ESRD (end stage renal disease) on dialysis (CMS/HCC); Hepatic cirrhosis, unspecified hepatic cirrhosis type, unspecified whether ascites present (CMS/HCC) 12/28/2024 External Device Data ST[facility] ABSTRACTION Provider, Abstract 12/28/2024 [place] [id number] [place] [phone] Macario Perales Cancer (Spiritual care) 12/27/2024 External Device Data [facility] ABSTRACTION Provider, Abstract 12/26/2024 [facility] [address] [place] [address] Macario Perales Spiritual Distress (Spiritual care) 12/23/2024 Telephone [facility] Spiritual Care [address] [place] [address] Reva Mtz Referral (Palliative Care Spiritual Assessment) 12/21/2024 3:30 PM CDT Office Visit [facility] Vascular Surgery [place] [address] [place] [address] Dre Gonzalez MD ESRD (end stage renal disease) ([facility]/HCC) (Primary Dx) 12/21/2024 2:20 PM CDT Office Visit [facility] [address] [facility] [address] [place] [address] Brittani Mcdonnell NP Mitral valve stenosis, unspecified etiology (Primary Dx); ASHD (arteriosclerotic heart disease); NSTEMI (non-ST elevated myocardial infarction) ([facility]); S/P drug eluting coronary stent placement; ESRD on hemodialysis ([facility]/HCC); Severe pulmonary hypertension ([facility]/HCC); Cirrhosis of liver without ascites, unspecified hepatic cirrhosis type ([facility]/HCC); Nonrheumatic tricuspid valve regurgitation 12/21/2024 11:45 AM CDT Office Visit [facility] Supportive Care [facility] [address] [place] [address] Emerita Urban ANP Palliative care by specialist (Primary Dx); Essential hypertension; Coronary artery disease involving levelock coronary artery of levelock heart without angina pectoris; Chronic obstructive pulmonary disease, unspecified COPD type ([facility]/HCC); Gastroesophageal reflux disease without esophagitis; Cirrhosis of liver with ascites, unspecified hepatic cirrhosis type ([facility]/HCC); ESRD (end stage renal disease) on dialysis ([facility]/HCC); Recurrent major depressive disorder, in partial remission; Depression screen; Other specified counseling; Chronic diastolic heart failure ([facility]/HCC) 12/21/2024 Refill [facility] Supportive Care [facility] [address] [place] [address] Emerita Urban ANP Palliative care by specialist (Primary Dx); ESRD (end stage renal disease) on dialysis (CMS/HCC); Hepatic cirrhosis, unspecified hepatic cirrhosis type, unspecified whether ascites present (CMS/HCC) 12/19/2024 [facility] [address] [phone] Mal Junior MD Essential hypertension 12/19/2024 Telephone [facility] Vascular Surgery [address] [place] [address] Lily Luna MD Needs Appointment 12/09/2024 1:30 PM CDT Office Visit [facility] Vascular Surgery [address] [address] Lily Luna MD ESRD (end stage renal disease) (CMS/HCC) (Primary Dx); Pseudoaneurysm of arteriovenous dialysis fistula, initial encounter 12/09/2024 [facility] [address] [address] Mal Junior MD Essential hypertension 12/07/2024 Orders Only [facility] Gastroenterology- [address] [place] [address] Jason Perera MD Cirrhosis of liver with ascites, unspecified hepatic cirrhosis type (CMS/HCC) (Primary Dx) 11/29/2024 Telephone [facility] Vascular Surgery [address] [place] [address] Lily Luna MD Appointment Notification 11/25/2024 2:49 PM CDT - 11/25/2024 8:14 PM CDT Emergency [facility] Emergency Department [address] [place] [address] Vernon Young, Ino Paz DO Dependence on renal dialysis (Primary Dx); Problem with dialysis access, initial encounter Discharge Disposition: Home or Self Care 11/25/2024 Travel 11/23/2024 Telephone [facility] Vascular Surgery [place] [address] [place] [phone] Dre Gonzalez MD Needs Appointment 11/04/2024 5:28 AM CDT - 11/04/2024 7:55 AM CDT Emergency [facility] Emergency Medicine [address] [facility] [address] [place] [phone] Evan Taylor MD Pneumonia of right lower lobe due to infectious organism (Primary Dx); Chronic pulmonary edema; Hyperkalemia Discharge Disposition: Home or Self Care 10/30/2024 4:15 PM CDT - 10/30/2024 11:59 PM CDT Hospital Encounter [facility] Emergency Medical Services [place] [address] [place] [address] Ambulance[facility] [place] [facility] Discharge Disposition: [facility] 10/28/2024 1:00 PM CDT Clinical Support [facility] Supportive Care [facility] [address] [place] [address] Saskia Slaughter MSW Other specified counseling (Primary Dx) 10/21/2024 2:00 PM CDT Video Visit [facility] Supportive Care [facility] [address] [place] [address] Freddie Cruz Jr., MD Scrotal swelling (Primary Dx); ESRD (end stage renal disease) on dialysis (CMS/HCC); Hepatic cirrhosis, unspecified hepatic cirrhosis type, unspecified whether ascites present (CMS/HCC); Palliative care by specialist 10/14/2024 1:00 PM CDT Office Visit [facility] Supportive Care [facility] [address] [place] [address] Freddie Cruz Jr., MD ESRD (end stage renal disease) on dialysis (CMS/HCC) (Primary Dx); Hepatic cirrhosis, unspecified hepatic cirrhosis type, unspecified whether ascites present (CMS/HCC) 10/10/2024 1:12 AM CDT - 10/11/2024 9:27 PM CDT Hospital Encounter [facility] 3A Surgical [address] [place] [address] Rossi Love DO Ovens, Lisa K, MD Kaur, Harinderjeet, MD Cirrhosis of liver with ascites (CMS/HCC) Discharge Disposition: Home or Self Care from Last 3 Months Immunizations Immunization Administration Dates Next Due (ADACEL/BOOSTRIX)(10 YR UP) TDAP VACCINE, 0.5ML, IM 03/11/2017,07/15/2016,09/10/2015 (PFIZER)(12 YR UP) COVID-19 VACCINE - EMERGENCY USE AUTHORIZATION, MRNA, [id number]) 30 MCG/0.3 ML IM SUSP 12/29/2020,11/28/2020 (PNEUMOVAX [...] Date Smoking Tobacco: Every Day Cigarettes 0.8 1.7 Started: 2023 Smokeless Tobacco: Never Tobacco Cessation:Ready [...] worry about transportation for future doctor visits, cone picker medication, etc.? No 2024 Housing Stability [...] who hurts you emotionally and/or physically? 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 Gender Identity Not on file Sexual Orientation Not on file Last Filed Vital Signs Vital Sign Reading Time Taken Comments Blood Pressure 122/72 12/21/2024 2:53 PM CDT Pulse 65 12/21/2024 2:53 PM CDT Temperature 37.1 C (98.8 F) 12/21/2024 11:35 AM CDT Respiratory Rate 20 11/25/2024 6:55 PM CDT Oxygen Saturation 98% 12/21/2024 2:53 PM CDT Inhaled Oxygen Concentration - - Weight 92.5 kg (204 lb) 12/21/2024 2:53 PM CDT Height 185.4 cm (6' 1 ) 12/21/2024 2:53 PM CDT Body Mass Index 26.91 12/21/2024 2:53 PM CDT Plan of Treatment Upcoming Encounters Date Type Department Care Team (Late st Contact Info) Description 02/06/2025 1:15 PM CDT Office Visit [facility] Supportive Care [facility] [address] [place] [address] Gayathri Stubbs MD [address] [facility] [address] [place] [address] 03/08/2025 11:30 AM ELECTORAL OFFICER Office Visit [facility] Gastroenterology- [place] [address] [place] [address] Jason Perera MD [address] [facility] [address] [place] [address] 06/28/2025 2:00 PM ELECTORAL OFFICER Office Visit [facility] [address] [facility] [address] [place] [address] Gilberto Hurtado MD [address] [facility] [address] [place] [address] Health Maintenance Due Date Last Done Comments HEPATITIS B VACCINES (1 of 3 - Risk Dialysis 4-dose series) 2002 HPV VACCINES (1 - 3-dose SCD M series) 2009 Pre-Diabetes and Diabetes Screening 07/21/2024 07/21/2021 INFLUENZA VACCINE (#1) 2024 , 02/10/2023, 01/29/2022, Additional history exists COVID-19 Vaccine (3 - 2024-2 6 season) 2025 12/29/2020, 11/28/2020 DTAP/TDAP/TD VACCINES (4 - T d or Tdap) 03/11/2027 03/11/2017, 07/15/2016, 09/10/2015 Abdominal Aortic Aneurysm (A AA) Screening Completed 10/09/2024, 08/30/2024, 05/02/2024, Additional history exists Medical Devices Implanted Type Area Iron Worker Apprentice Device Identifier Shelf Expiration Date Model / Serial / Lot Cath Dyls Glidepath 23cm [id number] Implanted:Qty : 1 on 07/26/2018 by Miguel Monzon MD Catheter Right: Chest CR BARD- [employer] 08/02/2019 [id number] / / [id number] Cath Dialysis Glidepath 14.5fr 24cm Std [id number] - [id number] Implanted:Qty : 1 on 11/25/2024 by Fransico Frey MD at [facility] Catheter Right: Chest Wall BARD AMINAH VASC [id number] 04/02/2026 [id number] / / [id number] Clip Ligating Horizon Red [id number] - Csc - [id number] Implanted:Qty : 1 on 07/08/2024 by Dre Gonzalez MD at [facility] Clip Left: Arm [employer] [id number] 03/26/2029 [id number] / / [id number] Clip Ligating Horizon Med Ti [id number] - Csc - [id number] Implanted:Qty : 1 on 07/08/2024 by Dre Gonzalez MD at [facility] Clip Left: Arm TELE[employer]LEX- WECK CLOSURE SYS [id number] 02/08/2029 [id number] / / [id number] Dev Closure Angioseal 6fr Vip [id number] - [id number] Implanted:Qty : 1 on 11/06/2022 by Betty Day MD at [facility] Closure Device Right: Groin [facility] 05/03/2023 [id number] / / [id number] Dev Vasc Closure Vascade 6-7fr [id number] - [id number] Implanted:Qty : 1 on 11/06/2022 at [facility] Closure Device Right: Groin [employer] 12/27/2023 [id number] / / [id number] Agent Hemostat Surgicel 3x4in 1943s - [id number] Implanted:Qty : 1 on 07/08/2024 by Dre Gonzalez MD at [facility] Hemostatic Left: Arm [employer] 03/03/2029 [id number] / / [id number] Stent Synergy Xd 3.5x24mm Evrlms Elut [id number] - [id number] Implanted:Qty : 1 on 11/06/2022 by Betty Day MD at [facility] Stent Right: Coronary [employer] 06/09/2024 [id number] / / [id number] Procedures Procedure Name Priority Date/Time Associated Diagnosis Comments HEMODIALYSIS Stat 11/25/2024 7:11 PM CDT IR VENOUS ACCESS Stat 11/25/2024 4:02 PM CDT COMPREHENSIVE METABOLIC PANEL Stat 11/25/2024 3:08 PM CDT CBC WITH DIFFERENTIAL Stat 11/25/2024 3:08 PM CDT COVID-19 ANTIGEN Stat 11/04/2024 6:01 AM CDT BASIC METABOLIC PANEL Stat 11/04/2024 6:01 AM CDT CBC WITH DIFFERENTIAL Stat 11/04/2024 6:01 AM CDT INFLUENZA VIRUS A AND B, ANTIGEN DETECTION Stat 11/04/2024 6:01 AM CDT XR CHEST PA OR AP 1 VW Stat 5:57 AM CDT COMPREHENSIVE METABOLIC PANEL Routine 10/11/2024 6:[address] ABDOMEN PELVIS WO CONTRAST Stat 10/09/2024 12:00 AM CDT HEMOGLOBIN A1C Routine 07/21/2021 from Last 3 Months or Most Recently Relevant to Health Maintenance Results * HEMODIALYSIS (11/25/2024 7:11 PM CDT) Narrative Zan Mullins RN - 11/25/2024 7:11 PM CDT Zan Mullins RN 11/25/2024 7:14 PM Renal Replacement Therapy Summary Procedure: Hemodialysis in 3F Dialyzer: RVC Access: Right IJ Blood Flow: 400 ml/min Procedure Time: 2.5 hours Blood Volume Processed: 60 liters Ultrafiltration Volume: 3500 ml with 500 ml rinse back Anticoagulation: none (ordered) PostWeight: On ER cart Post VS: BP:118/74 Pulse: 65 Temp:97 SpO2: 99 Dialyzer Cleared(%): 95% with mild clotting Complications: none Report sent to: Haleigh PERALES and Carlotta MONTESINOS in ED by secure chat us Corrie Whitney MD DIALYSIS ORDERABLES Fin al Result * IR VENOUS ACCESS (11/25/2024 4:02 PM CDT) Anatomical Region Laterality Modality X-Ray Angiograph y 11/25/2024 4:02 PM CDT Impressions 11/25/2024 4:23 PM CDT IMPRESSION: Successful placement of a right IJ approach tunneled dialysis catheter. PLAN: The new tunneled dialysis catheter is cleared for use as needed. Please note that the catheter's lumens have been loaded with heparin. I, Dr. Fransico Frey, certify that I was present for the procedure. Narrative 11/25/2024 4:23 PM CDT PROCEDURES: Ultrasound-guided access of the right internal jugular vein. Placement of a right internal jugular vein approach dual-lumen tunneled catheter. Moderate conscious sedation. HISTORY: Needs dialysis access. OPERATORS: Dr. Fransico Frey. BARRIER PRECAUTIONS: Maximum sterile barrier with operators fully gowned with mask, gowns and gloves. A full sterile drape was placed on the patient. Hand hygiene was performed with alcohol-based and rub antiseptic. Sterile single use ultrasound gel was used for the procedure during ultrasound guidance. ESTIMATED BLOOD LOSS: 5 mL PROCEDURE DETAILS: Patient's right neck and upper chest were prepped and draped in the usual sterile fashion with 2% chlorhexidine. Preprocedural timeout was performed. Versed and fentanyl were given IV by a radiology nurse who is a trained independent observer dedicated to patient monitoring during moderate sedation under my supervision. 1% lidocaine was infiltrated over the right internal jugular vein for local anesthesia. Ultrasound was used and the right internal jugular vein was found to be patent. Next, under direct ultrasound visualization, the right internal jugular vein was accessed with a 21 gauge micropuncture needle and a 0.018 wire, a respective image was saved. The needle was then exchanged for a micropuncture sheath. Next a suitable position for the subcutaneous tunnel tract was identified and anesthetized with 2% lidocaine with epinephrine. A skin luis fernando was made at the exit site on the right upper chest and a blunt-tipped tunneler was used to tunnel through the subcutaneous tissue to the venous access site. The 14.5 Grenadian, 19 cm (tip to cuff), dual-lumen dialysis catheter was then pulled through the tunnel with dacron cuff within the subcutaneous tunnel. Next, the 0.018 inch wire and 3 Fr dilator within the micropuncture sheath were removed and a 0.035 J-wire was then advanced into the IVC under direct fluoroscopic visualization. The micropuncture sheath was removed and serial dilation was performed over the wire. Next the peel-away sheath in the tunneled catheter kit was advanced over the wire into the SVC under direct fluoroscopic visualization and the wire and peel-away inner dilator were removed. The 14.5 Grenadian dialysis catheter was advanced through the peel-away sheath with final tip position in the right atrium. Both of the lumens flush and aspirate briskly and are loaded with heparin. The new tunneled dialysis catheter was anchored to the skin with suture and dressed with a Biopatch, sterile gauze and a Tegaderm. The neck access site was closed with a buried absorbable suture and skin glue. The patient tolerated the procedure well with no immediate complications and was in stable condition at the completion of the procedure. Procedure Note Fransico Frey MD - 11/25/2024 PROCEDURES: Ultrasound-guided access of the right internal jugular vein. Placement of a right internal jugular vein approach dual-lumen tunneled catheter. Moderate conscious sedation. HISTORY: Needs dialysis access. OPERATORS: Dr. Farnsico Frey. BARRIER PRECAUTIONS: Maximum sterile barrier with operators fully gowned with mask, gowns and gloves. A full sterile drape was placed on the patient. Hand hygiene was performed with alcohol-based and rub antiseptic. Sterile single use ultrasound gel was used for the procedure during ultrasound guidance. ESTIMATED BLOOD LOSS: 5 mL PROCEDURE DETAILS: Patient's right neck and upper chest were prepped and draped in the usual sterile fashion with 2% chlorhexidine. Preprocedural timeout was performed. Versed and fentanyl were given IV by a radiology nurse who is a trained independent observer dedicated to patient monitoring during moderate sedation under my supervision. 1% lidocaine was infiltrated over the right internal jugular vein for local anesthesia. Ultrasound was used and the right internal jugular vein was found to be patent. Next, under direct ultrasound visualization, the right internal jugular vein was accessed with a 21 gauge micropuncture needle and a 0.018 wire, a respective image was saved. The needle was then exchanged for a micropuncture sheath. Next a suitable position for the subcutaneous tunnel tract was identified and anesthetized with 2% lidocaine with epinephrine. A skin luis fernando was made at the exit site on the right upper chest and a blunt-tipped tunneler was used to tunnel through the subcutaneous tissue to the venous access site. The 14.5 Grenadian, 19 cm (tip to cuff), dual-lumen dialysis catheter was then pulled through the tunnel with dacron cuff within the subcutaneous tunnel. Next, the 0.018 inch wire and 3 Fr dilator within the micropuncture sheath were removed and a 0.035 J-wire was then advanced into the IVC under direct fluoroscopic visualization. The micropuncture sheath was removed and serial dilation was performed over the wire. Next the peel-away sheath in the tunneled catheter kit was advanced over the wire into the SVC under direct fluoroscopic visualization and the wire and peel-away inner dilator were removed. The 14.5 Grenadian dialysis catheter was advanced through the peel-away sheath with final tip position in the right atrium. Both of the lumens flush and aspirate briskly and are loaded with heparin. The new tunneled dialysis catheter was anchored to the skin with suture and dressed with a Biopatch, sterile gauze and a Tegaderm. The neck access site was closed with a buried absorbable suture and skin glue. The patient tolerated the procedure well with no immediate complications and was in stable condition at the completion of the procedure. IMPRESSION: Successful placement of a right IJ approach tunneled dialysis catheter. PLAN: The new tunneled dialysis catheter is cleared for use as needed. Please note that the catheter's lumens have been loaded with heparin. I, Dr. Fransico Frey, certify that I was present for the procedure. us Corrie Whitney MD IR ORDERABLES Final R esult * (ABNORMAL) CBC WITH DIFFERENTIAL (11/25/2024 3:08 PM CDT) Only the most recent of2 resultswithin the time period is included. WBC 3.3(L) 4.5 - 11.0 K/uL 11/25/2024 3:[address] [facility] RBC 3.54(L) 4.60 - 6.20 M/uL 11/25/2024 3:24 PM [facility] HEMOGLOBIN 9.6(L) 14.0 - 18.0 g/dL 11/25/2024 3:24 PM [facility] HEMATOCRIT 31.0(L) 41.0 - 53.0 % 11/25/2024 3:[address] [facility] MCV 87.6 84.0 - 103.0 fL 11/25/2024 3:24 PM [facility] MCH 27.1 27.0 - 34.0 pg 11/25/2024 3:24 PM [facility] MCHC 31.0 30.0 - 35.0 g/dL 11/25/2024 3:24 PM [facility] PLATELETS 178 140 - 440 K/uL 11/25/2024 3:24 PM [facility] MPV 10.2 8.9 - 12.8 fL 11/25/2024 3:24 PM [facility] RDW 18.5(H) 11.0 - 14.5 % 11/25/2024 3:24 PM [facility] RDW-STDEV 59.3(H) 37.0 - 54.0 fL 11/25/2024 3:24 PM [facility] NEUTROPHILS 54 42 - 75 % 11/25/2024 3:24 PM [facility] LYMPHOCYTES 18(L) 24 - 44 % 11/25/2024 3:[address] [facility] MONOCYTES 13(H) 2 - 10 % 11/25/2024 3:[address] [facility] EOSINOPHILS 15(H) 0 - 7 % 11/25/2024 3:[address] [facility] BASOPHILS 1 0 - 1 % 11/25/2024 3:[address] [facility] IMMATURE GRANULOCYTES 0 0 - 2 % 11/25/2024 3:[address] [facility] NEUTROPHIL ABSOLUTE 1.78(L) 2.00 - 8.00 K/uL 11/25/2024 3:[address] [facility] LYMPHOCYTE ABSOLUTE 0.58(L) 1.20 - 4.00 K/uL 11/25/2024 3:[address] [facility] MONOCYTE ABSOLUTE 0.43 0.10 - 0.60 K/uL 11/25/2024 3:[address] [facility] EOSINOPHIL ABSOLUTE 0.48 0.00 - 0.70 K/uL 11/25/2024 3:[address] [facility] BASOPHILS ABSOLUTE 0.04 0.00 - 0.20 K/uL 11/25/2024 3:[address] [facility] IMMATURE GRANULOCYTES ABSOLUTE 0.01 0.00 - 0.10 K/uL 11/25/2024 3:[address] [facility] SMEAR REVIEWED: NA - Not Applicable 11/25/2024 3:[address] [facility] Blood Venipuncture / Unknown 11/25/2024 3:08 PM CDT 11/25/2024 3:12 PM CDT us Vernon Young DO HEMATOLOGY ORDERABLES Final Result [facility] CLIA # [id number] Formerly [facility] [address] * (ABNORMAL) COMPREHENSIVE METABOLIC PANEL (11/25/2024 3:08 PM CDT) Only the most recent of2 resultswithin the time period is included. SODIUM 132(L) 136 - 145 mmol/L 11/25/2024 3:[address] [facility] POTASSIUM 4.6 3.5 - 5.1 mmol/L 11/25/2024 3:[address] [facility] CHLORIDE 98 98 - 107 mmol/L 11/25/2024 3:[address] [facility] CO2 23 22 - 29 mmol/L 11/25/2024 3:[address] [facility] CALCIUM 10.5(H) 8.6 - 10.0 mg/dL 11/25/2024 3:[address] [facility] BUN 19 6 - 20 mg/dL 11/25/2024 3:[address] [facility] CREATININE 4.80(H) 0.67 - 1.17 mg/dL 11/25/2024 3:[address] [facility] GLUCOSE 90 74 - 99 mg/dL 11/25/2024 3:[address] [facility] TOTAL PROTEIN 7.2 6.4 - 8.3 g/dL 11/25/2024 3:59 PM [facility] ALBUMIN 2.7(L) 3.5 - 5.2 g/dL 11/25/2024 3:[address] [facility] BILIRUBIN TOTAL 0.4 0.0 - 1.0 mg/dL 11/25/2024 3:59 PM [facility] ALKALINE PHOSPHATASE 121 40 - 129 U/L 11/25/2024 3:59 PM [facility] AST 11 10 - 50 U/L 11/25/2024 3:59 PM [facility] ALT <5 <=50 U/L 11/25/2024 3:59 PM [facility] GFR 15(L) >=60 mL/min/1. 73 sq meter 11/25/2024 3:[address] [facility] Comment:eGFR calculated with 2020 CKD-EPI equation. Vegetarian diet, extremely high or low muscle mass, and may affect results. Cystatin C with Glomerular Filtration Rate is a suitable alternative for these patients. ANION GAP 11 9 - 20 mmol/L 11/25/2024 3:[address] [facility] Blood Venipuncture / Unknown 11/25/2024 3:08 PM CDT 11/25/2024 3:12 PM CDT us Vernon Young DO CHEMISTRY ORDERABLES Final Result [facility] CLIA # [id number] [address] [place] [id number] * COVID-19 ANTIGEN (11/04/2024 6:01 AM CDT) Pathologist [facility] COVID-19 ANTIGEN Presumptive Negative Presumptive Negative 11/04/2024 6:28 AM CDT [facility] Upper Respiratory ANTERIOR NARES SWAB / Unknown Collection / Unknown 11/04/2024 6:01 AM CDT 11/04/2024 6:05 AM CDT Narrative [facility] - 11/04/2024 6:28 AM CDT Erma SARS antigen test has been authorized by FDA under an emergency use authorization (EUA) and has been authorized only for the detection of proteins from SARS-CoV-2 and influenza, not for any other viruses or pathogens. Erma SARS Antigen PHILLIP is intended for the simultaneous qualitative detection and differentiation of nucleocapsid protein antigen from SARS-CoV-2 directly from nasopharyngeal (LOW VOLTAGE TECHNICIAN) and nasal (NS) swab specimens collected from [...] O RDERABLES Final Result Performing Organization Address [facility] Co de Phone Number [facility] CLIA # [id number] [address] [place] [address] * INFLUENZA VIRUS A AND B, ANTIGEN DETECTION (11/04/2024 6:01 AM CDT) [facility] INFLUENZA A AG NOT DETECTED Not Detected 11/04/2024 6:28 AM CDT [facility] INFLUENZA B AG NOT DETECTED Not Detected 11/04/2024 6:28 AM CDT [facility] Upper Respiratory ENTIRE NASOPHARYNX / Unknown Collection / Unknown 11/04/2024 6:01 AM CDT 11/04/2024 6:05 AM CDT [facility] - 11/04/2024 6:28 AM CDT Negative results do not rule out infection. If clinically indicated, consider PCR testing which is more sensitive than antigen testing. If PCR testing is desired, consult with your local laboratory as sample recollection may be required. Evan Taylor MD MICROBIOLOGY - GENERAL O RDERABLES Final Result Performing Organization Address [facility] Co de Phone Number [facility] CLIA # [id number] [address] [place] [address] * (ABNORMAL) BASIC METABOLIC PANEL (11/04/2024 6:01 AM CDT) SODIUM 132(L) 136 - 145 mmol/L 11/04/2024 6:24 AM [facility] POTASSIUM 6.0(H) 3.5 - 5.1 mmol/L 11/04/2024 6:24 AM [facility] Comment:Moderate hemolysis p resent. Can cause significant falsely elevated result. Redraw if indicated. CHLORIDE 98 98 - 107 mmol/L 11/04/2024 6:24 AM [facility] CO2 28 22 - 29 mmol/L 11/04/2024 6:24 AM [facility] CALCIUM 10.1(H) 8.6 - 10.0 mg/dL 11/04/2024 6:24 AM [facility] BUN 17 6 - 20 mg/dL 11/04/2024 6:24 AM [facility] CREATININE 3.59(H) 0.67 - 1.17 mg/dL 11/04/2024 6:24 AM [facility] GLUCOSE 91 74 - 99 mg/dL 11/04/2024 6:24 AM [facility] GFR 21(L) >=60 mL/min/1.7 3 sq meter 11/04/2024 6:24 AM [facility] Comment:eGFR calculated with 2020 CKD-EPI equation. Vegetarian diet, extremely high or low muscle mass, and may affect results. Cystatin C with Glomerular Filtration Rate is a suitable alternative for these patients. ANION GAP 6 5 - 20 mmol/L 11/04/2024 6:24 AM [facility] Blood BLOOD SPECIMEN / Unknown Venipuncture / Unknown 11/04/2024 6:01 AM CDT 11/04/2024 6:05 AM CDT us Evan Taylor MD CHEMISTRY ORDERABLES Fin al Result [facility] CLIA # [id number] [address] [place] [address] * XR CHEST PA OR AP 1 VW (11/04/2024 5:57 AM CDT) Anatomical Region Laterality Modality Chest Computed Radiogr aphy 11/04/2024 5:47 AM CDT Impressions 11/04/2024 12:04 PM CDT IMPRESSION: Findings are present consistent with congestive failure with pulmonary edema. Narrative 11/04/2024 12:04 PM CDT Exam: XR CHEST PA OR AP 1 VW Date/Time of Exam: 11/04/2024 5:57 AM Reason For Exam: Chronic Cough Diagnosis: See Reason for Exam The heart is enlarged. Pulmonary vascular redistribution is present. Diffuse consolidation is seen throughout the lungs bilaterally with numerous curly B lines present, consistent with pulmonary edema. No pneumothorax is seen. Procedure Note Justo Card MD - 11/04/2024 Exam: XR CHEST PA OR AP 1 VW Date/Time of Exam: 11/04/2024 5:57 AM Reason For Exam: Chronic Cough Diagnosis: See Reason for Exam The heart is enlarged. Pulmonary vascular redistribution is present. Diffuse consolidation is seen throughout the lungs bilaterally with numerous curly B lines present, consistent with pulmonary edema. No pneumothorax is seen. IMPRESSION: Findings are present consistent with congestive failure with pulmonary edema. Evan Taylor MD DIAGNOSTIC IMAGING ORDER RENE Final Result * CT ABDOMEN PELVIS WO CONTRAST (10/09/2024 12:00 AM CDT) Anatomical Region Laterality Modality Abdomen Computed Tomogra [...] Bustillos MD CT ORDERABLES Final Result * HEMOGLOBIN A1C (07/21/2021) ABSTRACTED HGB A1C 4.0 Blood 07/21/2021 Abstract Provider CHEMISTRY ORDERABLES Final Res ult from Last 3 Months or Most Recently Relevant to Health Maintenance Insurance MEDICAID [facility] DUAL COMPLETE HMO NP [facility] [id number] RX [employer] Medicare Part D RX INFOCROSSING Medicaid WORKERS COMP [place]ID [place] Advance Directives For more information, please contact: [phone] * Full Code (Latest Code Status on [...] 4:49 PM 05/06/2024 4:08 PM Care Teams Military Cook Relationship Specialty Start Date End Date Delio Salazar MD [address] [place] [id number] PCP - General Family Practice 01/30/24
--- OUTSIDE RECORDS SUMMARY | 2025-01-11 17:11 | XMS_ITS | Clinical Summary ---
Author Organization [facility] Address [address] [place] [id number] Care Team Providers Care Telephone Clerk Name Role Phone Hank Cruz MD Unavailable [phone] Delio Salazar MD Primary Care Provider + [...] 04/01/2024 Assessment & Plan (04/02/2024 10:16 AM HORSEBACK EXCAVATOR): This is the reason pt was sent to our hospital. Seen by urology in ED and no further acute evaluation warranted. Likely component of scar tissue related to prior infarction/orchiectomy. This is exacerbated by persistent pressure related to anasarca/ascites. - pt wishes to follow up with a urologist in [place] given distance to [place] - plan home today if able to arrange ride home I have personally spent 40 minutes today including time with the patient, time reviewing data, time discussing with other providers, and time on discharge planning and documentation. Anasarca 04/01/2024 Assessment & Plan (04/02/2024 10:11 AM HORSEBACK EXCAVATOR): HD and DUF as tolerated. Pt wishes to return home and go to usual dialysis center - s/p LVP and will need LVP's prn Abdominal pain 03/24/2024 Assessment & Plan (03/24/2024 1:20 PM HORSEBACK EXCAVATOR): Suspect baseline given cirrhosis, hernia repair and ongoing umbilical hernia (reducible). Patient had BM 03/24, encouraged to keep this up as outpatient. - ok to discharge with some pain medications Cellulitis of drainage site following surgery Assessment & Plan (03/25/2024 9:57 AM HORSEBACK EXCAVATOR): Erythema around FRANK drain, reportedly with purulent [...] 01/23/2024 Assessment & Plan (04/02/2024 10:14 AM HORSEBACK EXCAVATOR): TTE (01/21): EF 74%, G2DD, mod calcified mitral valve annulus + severe mitral stenosis, PASP 33mHg Outpatient follow up with Cardiology in [facility] Assessment & Plan (03/22/2024 5:27 PM HORSEBACK EXCAVATOR): Noted on TTE 01/2024 - To be [...] discharge, SW/CM updated. Discharge pending family to pickle maker CAD (coronary artery disease) 01/19/2024 Assessment & Plan (04/02/2024 10:10 AM HORSEBACK EXCAVATOR): ASA, statin; outpt cardiology f/u at [facility] Assessment & Plan (03/21/2024 10:54 PM HORSEBACK EXCAVATOR): S/p PCI/MARYAM to RCA 11/06/22. TTE 01/22/24: [...] monotherapy. 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 - Per [facility] pHTN group, it is very unlikely the patient is going to be a candidate ofr pulmonary vasodilator therapy - Baseline chronic hypoxemia requiring 3-4 L O2 Assessment & Plan (01/24/2024 9:42 AM CDT): -Follows with OSH ([facility]) Pulmonology --From most recent OSH Pulm note [...] 01/19/2024 Assessment & Plan (04/02/2024 10:14 AM HORSEBACK EXCAVATOR): On home O2 at times though pt states he doesn't actually use it. Outpt f/u with pulmonary in [facility] Assessment & Plan (03/21/2024 11:03 PM HORSEBACK EXCAVATOR): Continue incruse ellipta, PRN albuterol Assessment & [...] AM CDT): -01/18 med list updated in [facility] History of pulmonary embolism 01/19/2024 Assessment & Plan (03/21/2024 10:56 PM HORSEBACK EXCAVATOR): Unable to find records of PE, but noted RUE DVT 05/10/22 ([facility] [place]). - No longer on anticoagulation Assessment & [...] NGT in place -CT A/P repeated at [facility] on arrival - Large right [...] monotherapy. 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 Per chart review, unclear if has actual cirrhosis or just hepatic fibrosis. Gets weekly LVPs. No prior EV's or PSE though ?SBP in the past. - interestingly, ascites fluid has been exudative on last few zac here. Cell count low and cultures negative. Could be related to prior surgery in 9/24 though unclear why exudative. Formal cytology not sent though senior staff review by the lab without obvious malignancy - will need continued outpt f/u - would consider evaluation for unusual infections or malignancy with next para - as pt wants to leave here [facility], no plan for further acute evaluation Assessment & Plan (03/23/2024 6:12 PM HORSEBACK EXCAVATOR): History of [id number] ascites. Poor candidate for TIPS based on consult documentation from 01/2024 due concern for pulmonary HTN/right-sided heart disease, ?history of hepatic encephalopathy. Low SAAG on prior ascites studies argues against portal HTN. Has hx SBP. S/p LVP at [facility] on 03/19 with 7L removed. - para (03/23): 118 nucleated cells, 4L off - OSH para (03/19): 154 nucleated cells - Continue lactulose, titrate to 3-5 BM/day Assessment & Plan (01/24/2024 9:44 AM CDT): -Unknown etiology of cirrhosis -Follows with OS ([facility]) Gastroenterology in [place], [place] -Last clinic visit 09/07/23 > referred to [facility] Hepatology for TIPS evaluation, no [facility] documentation -Most recent EGD 11/07/22, negative for [...] 01/17 Assessment & Plan (04/02/2024 10:14 AM HORSEBACK EXCAVATOR): HD per renal Assessment & Plan (03/24/2024 1:21 PM HORSEBACK EXCAVATOR): Anuric, HD TTS via LUE AVF. Received dialysis 03/24 - renal c/s: iHD T//Sat - has chart prescriptions of both phoslo + renvela. Phoslo now, consider renvela if I-nikos high Assessment & Plan (01/23/2024 1:23 PM CDT): -Per patient ESRD on HD x approx 7yrs -ESRD 2/2 HTN; T/Th/Sat schedule, no UOP at baseline -Last HD 01/15 -Nephro consulted -AVF in E -01/18 likely plan for HD session today; would prefer patient get LVP with procedure team prior to HD session today -01/20 fistula present to left wrist, dialysis today -01/22 continue dialysis per outpatient schedule T/R/S Hypertension Assessment & Plan (04/02/2024 10:14 AM HORSEBACK EXCAVATOR): Home meds; outpt f/u Assessment & Plan (03/23/2024 6:15 PM HORSEBACK EXCAVATOR): Patient does not recall the bulk of his medications. Medications reconciled through review of his latest available dialysis center documentation. Favor adjusting at discharge, including limiting hydralazine as able. - Continue amlodipine 10 daily, Coreg 25 BID, hydralazine 100 TID, Imdur 240 daily, minoxidil 2.5 TID (down from 10 TID at last [facility] discharge) - resume losartan 03/24 [...] follow up with PCP and cardiology outpatient Resolved Problems Problem Noted Date Diagnosed Date Resolved Date Electrolyte abnormality 03/23/202403/06 Assessment & Plan (04/01/2024 6:54 AM HORSEBACK EXCAVATOR): Mild hyperkalemia at 5.2; nephrology recommended Lokelma 10 mg while waiting for dialysis (has history of recent admission with hyperkalemia) Hold losartan given recurrent hyperkalemia Monitor potassium level closely Monitor with daily BMP while inpatient, if potassium rising again consider b.i.d. labs quality assurance monitor body Hyperphosphatemia Per Nephrology, monitor phosphorus 2 to 3 times a week while inpatient and substituting PhosLo with sevelamer 1600 t.i.d. Assessment & Plan (03/23/2024 7:30 PM HORSEBACK EXCAVATOR): Abnormal Na, K likely hypervolemic hyponatremia from ESRD with possible SIADH in setting of cirrhosis. - problem added per billing, manage per ESRD and cirrhosis Umbilical hernia 01/19/2024 04/02/2024 Assessment & Plan (04/01/2024 7:14 AM HORSEBACK EXCAVATOR): History of inguinal hernia s/p repair (Dr. Cardenas) on 01/2024. Currently has umbilical hernia in the setting of ascites Per ED note, hernia appeared slightly dusky was difficult to reduce but ED physician was able to reduce it easily afterwards, patient not cooperative to exam due to pain and feeling sleepy; reassess when the patient is more awake CT scan showed normal caliber bowel without evidence of obstruction Consider paracentesis while inpatient if the patient is agreeable Assessment & Plan (01/24/2024 9:35 AM CDT): -Noted on imaging and exam, filled with ascites -01/18 no overlying skin changes, no leakage of ascites out of umbo defect -01/20 present, no skin color changes noted, easily reducible -01/21 soft, nontender, no skin color changes noted -01/22 remains stable Present, reducible no skin color changes noted Surgical History Surgery Date Site/Laterality Comments PERITONEAL CATHETER INSERTION TUNNELED PERITONEAL CATHETER REMOVAL US GUIDED PARACENTESIS 03/23/2024 N/A US GUIDED PARACENTESIS 04/01/2024 N/A Medical History Medical History Date Comments Renal disorder Peritoneal dialysis status Hypertension Social History Tobacco Use Types Packs/Day Years Used Date Smoking Tobacco: Every Day Cigarettes 0.5 20 Tobacco Cessation:Ready to Q uit: Not Asked; Counseling Given: Not Answered [facility] [employer] Answer Date Recorded In the past 12 months has e electric, gas, oil, or water company threatened [...] week 03/25/2024 How often do you attend episcopalian or congregational serv ices? Never 03/25/2024 Do you belong to any clubs o r organizations such as episcopalian groups, unions, fraternal or athletic groups, or [...] any time in the past 12 m [facility], were you homeless or living in a intermediate (including now)? No 03/25/2024 Personal Safety Answer Date Recorded Have you ever been in or are you currently in a harmful physical or emotional relationship or is someone making you feel afraid or unsafe? Denies 04/01/2024 Sex and Gender Information Value Date Recorded Sex Assigned at Not on file Legal Sex Male 7:34 PM HORSEBACK EXCAVATOR Gender Identity Not on file Sexual Orientation Not on file Obstetrics History Last Filed Vital Signs Vital Sign Reading Time Taken Comments Blood Pressure 159/92 04/02/2024 10:10 AM HORSEBACK EXCAVATOR Pulse 71 04/02/2024 10:10 AM HORSEBACK EXCAVATOR Temperature 36.3 C (97.3 F) 04/02/2024 10:10 AM HORSEBACK EXCAVATOR Respiratory Rate 18 04/02/2024 10:10 AM HORSEBACK EXCAVATOR Oxygen Saturation 95% 04/02/2024 10:10 AM HORSEBACK EXCAVATOR Inhaled Oxygen Concentration - - Weight 79.8 kg (176 lb) 04/02/2024 5:40 AM HORSEBACK EXCAVATOR Height 185.4 cm (6' 1 ) 04/01/2024 6:10 AM HORSEBACK EXCAVATOR Body Mass Index 23.22 04/01/2024 6:10 AM HORSEBACK EXCAVATOR Plan of Treatment Health Maintenance Due Date Last Done Comments Varicella Vaccines (1 of 2 - 13+ 2-dose series) 08/29/1995 Hepatitis B Screening 2000 Regular Well Visit/Exam 18-64 2000 HPV Vaccines (1 - 3-dose SCD M series) 2009 Influenza Vaccine (#1) 2025 , 02/10/2023, 01/29/2022, Additional history exists Depression Screening 03/21/2025 03/21/2024, 03/21/20 24 DTaP/Tdap/Td Vaccine (4 - Td or Tdap) 03/11/2027 03/11/2017, 07/15/2016, 09/10/2015 Pneumococcal vaccine <65 (3 of 3 - PCV20 or PCV21) 2032 10/31/2020, 10/06/2018, 12/10/2017 Hepatitis C Screening Completed 01/22/2014 Medical Devices Implanted Type Area Electric Power Machine Operator Device Identifier Shelf Expiration Date Model / Serial / Lot [employer] 6x3in Large Pore Knit Monofilament Smooth [place] [id number] - [id number] Implanted:Qty: 1 on 01/20/2024 by Joey Cardenas MD at [facility] Mesh Right: Inguinal [employer] [id number] 11/29/2027 [id number] / / [id number] Procedures Procedure Name Priority Date/Time Associated Diagnosis Comments SERUM HEPATITIS PANEL Routine 01/22/2014 4:31 PM CDT from Last 3 Months or Most Recently Relevant to Health Maintenance Results * Serum Hepatitis panel (01/22/2014 4:31 [...] Most Recently Relevant to Health Maintenance Insurance [place] [facility] DUAL COMPLETE [id number] [facility] PRIVATE [address] [address] [facility] HEALTH [facility]AN [place] [facility] [facility] MEDICARE Advance Directives For more information, please contact: [phone] * Full Code (Latest Code Status on File) Date Activated Date Inactivated Comments 04/01/2024 6:45 AM 04/02/2024 8:07 PM * Full Code Date Activated Date Inactivated Comments 03/21/2024 10:43 PM 03/26/2024 1:47 AM * Full Code Date Activated Date Inactivated Comments 01/18/2024 11:21 PM 01/24/2024 6:51 PM Care Teams Telephone Clerk Relationship Specialty Start Date End Date Delio Salazar MD [address] [place] [address] PCP - General Family Medicine 09/19/23 Hank Cruz MD Referring Physician Nephrology 02/18/18
--- OUTSIDE RECORDS SUMMARY | 2025-01-11 17:11 | XMS_ITS | Encounter Summary ---
Author Organization [facility] Address [address] [place] [address] Phone Care Team Providers Care Land Conservation Specialist Name Role Phone Hank Cruz MD Unavailable Mal Junior MD Primary Care Provider [phone] Delio Salazar MD Primary Care Provider + Savanah iVllafana CHECKROOM CHIEF Unavailable [phone] Encounter Details Date Type Department Care Team (Late st Contact Info) Description 08/29/2021 Ophth Exam 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 Gender Identity Not on file Sexual Orientation Not on file documented as of this encounter Plan of Treatment Not on file documented as of this encounter Visit Diagnoses Not on filedocumented in this encounter Additional Health Concerns Infection Onset Date Last Indicated Resolved Time COVID: Suspected 04/01/2024 04/01/2024 04/01/2024 3:05 AM PROJECT CONTROL OFFICER documented as of this encounter Eye Exam Visual Acuity Right eye Left eye Near sc 20/20-1 20/20-1 Tonometry (Tonopen, 4:53 PM) Right eye Left eye Pressure 16 17 Pupils Dark Light Shape React APD Right eye 5 3 Round Brisk None Left eye 5 3 Round Brisk None Visual Toro (Counting fingers) Right eye Left eye Full Full Extraocular Movement Right eye Left eye Full Full Dilation Both eyes: 1.0% Mydriacyl, 2 .5% Phenylephrine @ 4:54 PM External Exam Right eye Left eye External Normal periorbital ecch ymoses Slit Lamp Exam Right eye Left eye Lids/Lashes Normal reactive ptosis Conjunctiva/Sclera White and quiet bullous ARTEM i nferiorly Cornea Clear mild SPEE Anterior Chamber Deep and quiet rare cell Iris Round and reactive Round and merari ctive Lens Clear pigment nasally on anterior capsule Vitreous Normal Normal, no Shafe r's sign Fundus Exam Right eye Left eye Disc Normal Normal C/D Ratio 0.2 0.3 Macula Normal Normal Vessels Normal Normal Periphery Normal Normal Care Teams Land Conservation Specialist Relationship Specialty Start Date End Date Mal Junior MD [address] [phone] PCP - General Family Medicine 02/18/18 09/18/23 Delio Salazar MD [address] [place] [address] PCP - General Family Medicine 09/19/23 Hank Cruz MD Referring Physician Nephrology 02/18/18 Savanah Villafana, CHECKROOM CHIEF [address] [facility] ([facility] Mailstop [phone] [place] [address] SHOP Outpatient Triage Assistant 03/28/24 03/29/24 documented as of this encounter
--- OUTSIDE RECORDS SUMMARY | 2025-01-11 17:11 | XMS_ITS | Encounter Summary ---
Author Organization [facility] Address [address] [place] [address] Care Team Providers Care Lubricating Machine Tender Name Role Phone Delio Salazar MD Primary Care Provider + Reason for Visit * Reason Onset Date Comments Medication Refill 12/29/2024 Encounter Details Date Type Department Care Team (Late st Contact Info) Description 12/29/2024 Refill [facility] Supportive Care [facility] [address] [place] [address] Freddie Cruz Jr., MD [address] [place] [address] Palliative care by specialist; ESRD (end stage renal disease) on dialysis (CMS/HCC); Hepatic cirrhosis, unspecified hepatic cirrhosis type, unspecified whether ascites present (CMS/HCC) Social History Tobacco Use Types Packs/Day Years Used Date Smoking Tobacco: Every Day Cigarettes 0.8 1.7 Started: 2023 Smokeless Tobacco: Never Comments:Quit smokin [...] worry about transportation for future doctor visits, fiber picker medication, etc.? 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 ([place] [place] [address] [place] [address] Gayathri Stubbs MD [address] [place] [phone] 03/08/2025 11:30 AM MATH AND SCIENCE INSTRUCTOR Office Visit [facility]- [place] [address] [address] [facility] [address] [place] [address] Jason Perera MD [address] [place] [address] 06/28/2025 2:00 PM MATH AND SCIENCE INSTRUCTOR Office Visit [facility] [address] [facility] [address] [place] [address] Gilberto Hurtado MD [address] [facility] [address] [place] [address] documented as of this encounter Visit Diagnoses Diagnosis Palliative care by specialist ESRD (end stage renal disease) on dialysis (CMS/HCC) End stage renal disease Hepatic cirrhosis, unspecified hepatic cirrhosis type, unspecified whether ascites present (CMS/HCC) documented in this encounter Additional Health Concerns Assessment Noted Time PHQ-9 Depression Total Score: 3 12/22/19 25 11:00 AM CDT documented as of this encounter Care Teams Lubricating Machine Tender Relationship Specialty Start Date End Date Delio Salazar MD [address] [place] [phone] PCP - General Family Practice 01/30/24 documented as of this encounter
[2025-01-11 17:13] VITALS: BP 130/72; PULSE 59; RESP 18; TEMP 36.5; O2SAT 96
[2025-01-11 17:58] VITALS: BP 125/83; PULSE 62; O2SAT 98
--- NOTE | 2025-01-11 17:58 | CTR_ITS ---
PROCEDURE INFORMATION: Exam: CT Maxillofacial Without Contrast Exam date and time: 01/11/2025 6:12 PM Age: 44 years old Clinical indication: Face pain; Additional info: Mass on cheek TECHNIQUE: Imaging protocol: Computed tomography of the face without contrast. 834 image(s) are submitted. Radiation optimization: All CT scans at this facility use at least one of these dose optimization techniques: automated exposure control; mA and/or kV adjustment per patient size (includes targeted exams where dose is matched to clinical indication); or iterative reconstruction. COMPARISON: CT facial bones wo con* [id number] 08/28/2021 5:29 PM RADIATION DOSE METRICS: Total DLP (mGy-cm): 618.28 FINDINGS: Paranasal sinuses: See Teeth finding. Orbital cavities: Orbits are normal. Globes are unremarkable. Teeth: Patient is edentulous. No evidence of paranasal sinus disease. 2.2 x 2.5 cm fluid collection in the subcutaneous tissue of the right face seen on image number 39/5, new since prior study, concerning for subcutaneous abscess formation. There is extensive adjacent cellulitis. It is located slightly inferior to the right-sided anterior zygomatic arch. Bones: See Teeth finding. Soft tissues: See Teeth finding. CT/CT facial bones wo con* [id number] IMPRESSION: Patient is edentulous. No evidence of paranasal sinus disease. 2.2 x 2.5 cm fluid collection in the subcutaneous tissue of the right face seen on image number 39/5, new since prior study, concerning for subcutaneous abscess formation. There is extensive adjacent cellulitis. It is located slightly inferior to the right-sided anterior zygomatic arch. Degenerative changes of bilateral temporomandibular joints.
[2025-01-11] MEDS: HYDROmorphone 0.5 MG/0.5 ML INJ IVP ×2 (18:02→19:18)
--- NOTE | 2025-01-11 18:05 | W.ED.SKABFB ---
HPI - Skin/Abscess/Foreign Bdy General: Chief complaint: Skin/Abscess/Foreign Body Stated complaint: bump on face causing pain in the face Time Seen by Provider: 01/11/25 17:11 Source: patient Mode of arrival: ambulatory Limitations: no limitations History of Present Illness: Patient is a 44-year-old male who presents the emergency department complaining of a lump to his right cheek that has been going on for months. Has been seen here multiple times in the past, has extensive past medical history including end-stage renal disease on dialysis, fistula from hemodialysis, COPD, and liver cirrhosis. States he has been attending dialysis as usual. Notes that the pain and the swelling to his right face is what brings him into the emergency department, no difficulty swallowing but states it is starting to hurt to swallow. Is not reporting any nausea vomiting diarrhea. No other new symptoms at this time. Vital stable. MD complaint: lesion (lesion cheek) Onset (ago): month(s) Associated symptoms: Deny chills, fever(s), nausea or vomiting Related Data Home Medications ?Medication ?Instructions ?Recorded ?Confirmed ferric citrate 210 mg iron tablet 630 mg PO TID 11/03/21 01/06/25 (Auryxia) aspirin 81 mg tablet,delayed 81 mg PO BEDTIME 02/21/22 01/06/25 release vit B,C-folic ac 800 mcg-zinc 12.5 1 tab PO QAM 10/01/22 01/06/25 mg-selen-D3 2,000 unit-vit E tablet (RenaPlex-D) carvedilol 25 mg tablet 50 mg PO Q12H 01/09/23 01/06/25 minoxidil 2.5 mg tablet 10 mg PO TID 05/16/24 01/06/25 sevelamer carbonate 800 mg tablet 1,600 mg PO TID 05/16/24 01/06/25 albuterol sulfate 90 mcg/actuation 1 puff inhalation Q6H PRN 09/19/24 01/06/25 aerosol inhaler Shortness Of Breath umeclidinium 62.5 mcg/actuation 1 inh inhalation DAILY 09/19/24 01/06/25 blister powder for inhalation (Incruse Ellipta) hydromorphone 4 mg tablet 4 mg PO Q6H PRN Pain 10/31/24 01/06/25 Allergies Allergy/AdvReac Type Severity Reaction Status Date / Time spironolactone Allergy Intermediate facial Verified 01/06/25 12:16 swelling nifedipine Allergy Unknown ALGY-Swell Verified 01/06/25 12:16 Lip/Tongue/Throat haloperidol (From Haldol) Allergy ADR-Irritab Verified 01/06/25 12:16 le ketorolac Allergy Unknown Verified 01/06/25 12:16 lisinopril Allergy ADR-Swelling Verified 01/06/25 12:16 of the Eye Review of Systems General: Reports: 10 or more systems reviewed and unremarkable except in HPI and below Const: Denies: fever(s), chills or fatigue Eyes: Denies: change in vision ENMT: Reports: odynophagia; Denies: throat pain, ear or mastoid pain or nasal discharge Card: Denies: chest pain, palpitations, swelling of feet/ankles or lightheadedness Resp: Denies: dyspnea, productive cough or wheezing GI: Denies: abdominal pain, nausea, vomiting, diarrhea or constipation : Denies: flank pain, difficulty urinating, dysuria or urinary frequency Musc: Denies: neck pain, back pain or joint pain Skin/Breast: Reports: new lesions (lesion/swelling to cheek); Denies: rash Neuro: Denies: headache(s), numbness in extremities or weakness in extremities PFSH ED PFSH: Medical History Abdominal ascites history of intermittent paracentesis, transudative fluid; prior work up has included negative biopsy, ceruloplasmin level normal, low iron, high ferritin, normal TIBC, negative HIV, hepatitis panel negative, JESÚS/SCL 70/double-stranded DNA antibodies negative, Alpha-fetoprotein level unremarkable, nonalcoholic by history, has hepatomegaly and splenomegaly Cirrhosis of liver Epididymitis 06/2022 Dyslipidemia History of home oxygen therapy COPD (chronic obstructive pulmonary disease) Patient under care of multiple providers Umbilical hernia Atherosclerosis of coronary artery Stent and balloon angioplasty to proximal 1 OM branch Congestive heart failure preserved ejection fraction History of cardiovascular stress test 07/2022 at [facility] perfusion imaging probably normal, no reversible defects, small fixed defect in apical anterior wall, EF 54%, nonischemic response to stress by EKG criteria Depression Pulmonary hypertension Uses bilevel positive airway pressure (BPAP) ventilation at home History of coronary angiogram 11/2021 - patent stent Inguinal hernia Chronic respiratory failure on home oxygen and bipap Nicotine dependence, cigarettes, with other nicotine-induced disorders Generalized anxiety disorder with panic attacks ESRD on dialysis Chronic abdominal pain COVID 05/25 Hypertensive emergency recurrent episodes Urethral stricture Pulmonary embolism 09/21 CTA inconclusive for very tiny peripheral LEFT lower lobe pulmonary artery sub segmental emboli versus poor opacification. Anemia chronic kidney disease Arteriovenous fistula for hemodialysis in place, secondary Degenerative disc disease, lumbar Hypertension uncontrolled Surgical History History of arteriovenous graft left upper extremity fistula, revision 07/2024 in [place] Stented coronary artery H/O hand surgery Amputation right 2&3 fingers 2017 History of adenoidectomy Family History Other Hypertension Social History Smoking and tobacco/nicotine status: current every day tobacco/nicotine user cigarettes Years cigarettes smoked: 21 [ Other cigarette details: started age 20, currently 0.5ppd ] Quit status (tobacco/nicotine): considering quitting Alcohol intake: never Substance/Drug Use: never Additional social history: Lives with his mother his sister and one of his kids. Patient wants full CODE STATUS as discussed on 10/31/2024 Household members: family Number of children: 3 Current occupational status: disabled Do you think of yourself as: Straight/Heterosexual Physical Exam Const: COMMON NORMALS: patient oriented x3 and alert GENERAL APPEARANCE: cooperative ORIENTATION/CONSCIOUSNESS: Yes awake OTHER: Chronically ill-appearing HENMT: OTHER: Large masslike lesion to patient's right cheek, with no significant warmth or erythema. No drainage. Eye: COMMON NORMALS: Equal, round and reactive pupils present and EOMs intact bilaterally PUPIL: Yes Equal, round and reactive pupils present Neck/C-Spine: COMMON NORMALS: full ROM CERVICAL SPINE: Yes cervical ROM normal Resp: COMMON NORMALS: normal respiratory effort, No retractions, No use of accessory muscles and clear to auscultation bilaterally AUSCULTATION: clear to auscultation bilaterally Cardio: COMMON NORMALS: regular rate and regular rhythm RATE: regular rate RHYTHM: regular rhythm Extremity: COMMON NORMALS: full ROM NARRATIVE EXTREMITY EXAM: Large fistula to left forearm Neuro: COMMON NORMALS: patient oriented x3, moves all extremities, no focal motor deficits and no sensory deficits noted SENSORIUM/ORIENTATION: Yes alert Course Vital Signs: Vital signs: Vital Signs Temperature 97.7 F 01/11/25 17:13 Pulse Rate 60 01/11/25 19:41 Respiratory Rate 18 01/11/25 17:13 Blood Pressure 122/80 01/11/25 19:41 Pulse Oximetry 98 01/11/25 19:41 Oxygen Delivery Me thod Room Air 01/11/25 17:13 MDM - Skin/Abscess/Foreign Bdy Medicial Decision Making Patient presenting with mass lesion to right cheek that has been going on for months. Multiple medical issues, specifically he is on dialysis for end-stage renal disease has been attending these appointments as usual. No erythema, red streaking, or infectious concerns on exam, though there is a large palpable mass to the right cheek. Facial CT without contrast showing concerns of subcutaneous abscess, though I suspect this is more of a cystic lesion and we will refer him to general surgery for further evaluation. With its chronicity and lack of infectious findings, do not think this would benefit from any bedside incision and drainage at this time, but did inform her to return if it starts to grow even more in size, becomes more erythematous, if he starts running fevers, or any other symptoms of general illness. All of his labs obtained show improvement from baseline, including his creatinine of 4.5 and hemoglobin of 10. Will refer him to general surgery and he will be discharged at this time. Pain controlled here with IV Dilaudid. Dr. Persaud examined this patient as well in the emergency department and agrees with disposition. Lab Data 01/11/25 17:56 01/11/25 17:[address] 01/11/25 17:58 IMPRESSION: Patient is edentulous. No evidence of paranasal sinus disease. 2.2 x 2.5 cm fluid collection in the subcutaneous tissue of the right face seen on image number 39/5, new since prior study, concerning for subcutaneous abscess formation. There is extensive adjacent cellulitis. It is located slightly inferior to the right-sided anterior zygomatic arch. Degenerative changes of bilateral temporomandibular joints. Laboratory Results WBC 3.24 10^3/uL (3.29-11.43) L 01/11/25 17:56 RBC 3.80 10^6/uL (3.85-5.65) L 01/11/25 17:56 Hgb 10.00 g/dL (11.27-16.99) L 01/11/25 17:56 Hct 32.4 % (37-53) L 01/11/25 17:56 MCV 85.3 fl (82-101) 01/11/25 17:56 MCH 26.3 pg (27-33) L 01/11/25 17:56 MCHC 30.9 g/dL (30-55) 01/11/25 17:56 RDW 18.5 % (12.1-15.1) H 01/11/25 17:56 Plt Count 178 10^3/cmm (157-399) 01/11/25 17:56 MPV 10.2 fL (7.4-10.4) 01/11/25 17:56 Neut % (Auto) 56.8 % 01/11/25 17:56 Lymph % (Auto) 18.5 % 01/11/25 17:56 [place] % (Auto) 11.4 % 01/11/25 17:56 Eos % (Auto) 10.8 % 01/11/25 17:56 Baso % (Auto) 2.5 % 01/11/25 17:56 Neut # (Auto) 1.84 10^3/uL (1.8-7.7) 01/11/25 17:56 Lymph # (Auto) 0.6 10^3/uL (0.8-4.8) L 01/11/25 17:56 [place] # (Auto) 0.4 10^3/uL (0.2-0.9) 01/11/25 17:56 Eos # (Auto) 0.4 10^3/uL (0.0-0.8) 01/11/25 17:56 Baso # (Auto) 0.1 10^3/uL (0.0-0.1) 01/11/25 17:56 Nucleated RBC % (auto) 0 % 01/11/25 17:56 Nucleated RBCs # 0.0 /100WBC 01/11/25 17:56 Sodium 132 mmol/L (136-145) L 01/11/25 17:56 Potassium 4.1 mmol/L (3.5-5.1) 01/11/25 17:56 Chloride 99 mmol/L (98-107) 01/11/25 17:56 Carbon Dioxide 24 mmol/L (22-29) 01/11/25 17:56 Anion Gap 13.1 (5-19) 01/11/25 17:56 BUN 19 mg/dL (6-20) 01/11/25 17:56 Creatinine 4.5 mg/dL (0.7-1.2) H 01/11/25 17:56 GFR Calculation 14.4 mL/min (90-130) L 01/11/25 17:56 Glucose 86 mg/dL (65-115) 01/11/25 17:56 Calculated Osmolality 276 mOsm/kg (285-295) L 01/11/25 17:56 Calcium 10.3 mg/dL (8.5-10.5) 01/11/25 17:56 Total Bilirubin 0.4 mg/dL (0.15-1.2) 01/11/25 17:56 AST 12 U/L (0-40) 01/11/25 17:56 ALT < 5 U/L (0-41) 01/11/25 17:56 Alkaline Phosphatase 124 U/L (40-130) 01/11/25 17:56 Total Protein 6.8 g/dL (6.6-8.7) 01/11/25 17:56 Albumin 2.4 g/dL (3.5-5.2) L 01/11/25 17:56 Globulin 4.4 g/dL (1.3-4.6) 01/11/25 17:56 All radiology interpretation(s) finalized by discharge Discharge Plan Discharge Patient Disposition: Home Clinical Impression: Cyst of face Condition: Stable Prescriptions: No Action ferric citrate [Auryxia] 210 mg iron Tablet 630 mg PO TID aspirin 81 mg tablet,delayed release (DR/EC) 81 mg PO BEDTIME RenaPlex-D 800 mcg-12.5 mg -2,000 unit tablet 1 tab PO QAM carvedilol 25 mg tablet 50 mg PO Q12H minoxidil 2.5 mg tablet 10 mg PO TID sevelamer carbonate 800 mg tablet 1,600 mg PO TID albuterol sulfate 90 mcg/actuation HFA aerosol inhaler 1 puff INHALATION Q6H PRN (Reason: Shortness Of Breath) Incruse Ellipta 62.5 mcg/actuation blister with device 1 inh INHALATION DAILY hydromorphone 4 mg tablet 4 mg PO Q6H PRN (Reason: Pain) Discharge Orders: Discharge ED (Routine); Ordered 01/11/25 Ordered By: Og Rey Referrals: Delio Salazar MD [Primary Care Provider, [facility]] Patient Instructions: Patient Portal & Elizabeth Instructions Activity Restrictions/Additional Instructions: Please follow-up with general surgery as we discussed, await a call in the coming days to schedule this appointment. Continue your dialysis. Please return with any trouble swallowing, high fever, spreading of redness, or any severe worsening of symptoms. Print Language: Cook Islander Coding Level of Care Code ED Middle School Band Teacher for Cristi Diane
[2025-01-11 18:06] LABS: Hematocrit 32.4 % (37-53); Hemoglobin 10.00 g/dL (11.27-16.99); Mean Corpuscular HGB Conc 30.9 g/dL (30-55); Mean Corpuscular Hemoglobin 26.3 pg (27-33); Mean Corpuscular Volume 85.3 fl (82-101); Nucleated Red Blood Cells % 0 %; Platelet Count 178 10^3/cmm (157-399); Red Blood Count 3.80 10^6/uL (3.85-5.65); White Blood Count 3.24 10^3/uL (3.29-11.43)
[2025-01-11 18:18] LABS: Alanine Aminotransferase < 5 U/L (0-41); Albumin Level 2.4 g/dL (3.5-5.2); Alkaline Phosphatase 124 U/L (40-130); Anion Gap 13.1 (5-19); Aspartate Amino Transferase 12 U/L (0-40); Blood Urea Nitrogen 19 mg/dL (6-20); Calcium 10.3 mg/dL (8.5-10.5); Carbon Dioxide 24 mmol/L (22-29); Chloride 99 mmol/L (98-107); Creatinine Clr Calc Pharmacy 25.4761; Globulin 4.4 g/dL (1.3-4.6); Glucose 86 mg/dL (65-115); Osmolality Calculated 276 mOsm/kg (285-295); Potassium 4.1 mmol/L (3.5-5.1); Sodium 132 mmol/L (136-145); Total Protein 6.8 g/dL (6.6-8.7)
[2025-01-11 18:34] LABS: Slide Review Slide Review Perform
[2025-01-11 19:18] VITALS: BP 136/86; PULSE 57; O2SAT 100
[2025-01-11 19:41] VITALS: BP 122/80; PULSE 60; O2SAT 98
--- NOTE | 2025-01-12 07:33 | DCPLANNER ---
messaged gen surg for er f/u
== END 2025-01-11 19:40 | disposition home or self-care (01) ==
PROVIDERS: Emergency Provider Physician Assistant; PCP Family Medicine
DX: L72.9 Follicular cyst of the skin and subcutaneous tissue, unspecified (principal); Z79.82 Long term (current) use of aspirin; F17.210 Nicotine dependence, cigarettes, uncomplicated; E78.5 Hyperlipidemia, unspecified; J44.9 Chronic obstructive pulmonary disease, unspecified; I25.10 Atherosclerotic heart disease of native coronary artery without angina pectoris; I11.0 Hypertensive heart disease with heart failure; I50.30 Unspecified diastolic (congestive) heart failure
CPT/HCPCS: 36415; 70486; 80053; 85025; 96374; 96376; 99285; J1171

== ENCOUNTER 2025-01-13 17:31 | Emergency (ER) | payer OTHER, MEDICAID, SELFPAY ==
[2025-01-13 17:35] VITALS: BP 111/71; PULSE 58; RESP 17; TEMP 36.2; O2SAT 96; BMI 26.4
--- OUTSIDE RECORDS SUMMARY | 2025-01-13 17:37 | XMS_ITS | Encounter Summary ---
Author Organization [facility] Address [address] [place] [address] Phone Care Team Providers Care Elevated Motorman Name Role Phone Hank Cruz MD Unavailable Mal Junior MD Primary Care Provider [phone] Delio Salazar MD Primary Care Provider + Savanah Villafana FINISHER TAILOR APPRENTICE Unavailable [phone] Encounter Details Date Type Department Care Team (Late st Contact Info) Description 08/29/2021 Ophth Exam [facility] Medicine Ophthalmology [address] [place] [address] [place] [address] Perico Garcia MD PhD [address] [facility] [phone] [place], [place] [id number] Social History Tobacco Use Types Packs/Day Years Used Date Smoking Tobacco: Former Sex and Gender Information Value Date Recorded Sex Assigned at Not on file 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 Gender Identity Not on file Sexual Orientation Not on file documented as of this encounter Plan of Treatment Not on file documented as of this encounter Visit Diagnoses Not on filedocumented in this encounter Additional Health Concerns Infection Onset Date Last Indicated Resolved Time COVID: Suspected 04/01/2024 04/01/2024 04/01/2024 3:05 AM CANOE INSPECTOR documented as of this encounter Eye Exam [...] Normal Normal Periphery Normal Normal Care Teams Elevated Motorman Relationship Specialty Start Date End Date Mal Junior MD [address] [phone] PCP - General Family Medicine 02/18/18 09/18/23 Delio Salazar MD [address] [place] [address] PCP - General Family Medicine 09/19/23 Hank Cruz MD Referring Physician Nephrology 02/18/18 Savanah Villafana, FINISHER TAILOR APPRENTICE [address] [facility] ([facility]) Mailstop [phone] [place] [address] SHOP Outpatient Wire Inspector 03/28/24 03/29/24 documented as of this encounter
--- OUTSIDE RECORDS SUMMARY | 2025-01-13 17:37 | XMS_ITS | Clinical Summary ---
Author Organization [facility] Address [address] [place] [id number] Care Team Providers Care Him Assistant Name Role Phone Hank Cruz MD Unavailable [phone] Delio Salazar MD Primary Care Provider + [...] 04/01/2024 Assessment & Plan (04/02/2024 10:16 AM FACILITY ATTENDANT): This is the reason pt was sent to our hospital. Seen by urology in ED and no further acute evaluation warranted. Likely component of scar tissue related to prior infarction/orchiectomy. This is exacerbated by persistent pressure related to anasarca/ascites. - pt wishes to follow up with a urologist in [place] given distance to [place] - plan home today if able to arrange ride home I have personally spent 40 minutes today including time with the patient, time reviewing data, time discussing with other providers, and time on discharge planning and documentation. Anasarca 04/01/2024 Assessment & Plan (04/02/2024 10:11 AM FACILITY ATTENDANT): HD and DUF as tolerated. Pt wishes to return home and go to usual dialysis center - s/p LVP and will need LVP's prn Abdominal pain 03/24/2024 Assessment & Plan (03/24/2024 1:20 PM FACILITY ATTENDANT): Suspect baseline given cirrhosis, hernia repair and ongoing umbilical hernia (reducible). Patient had BM 03/24, encouraged to keep this up as outpatient. - ok to discharge with some pain medications Cellulitis of drainage site following surgery Assessment & Plan (03/25/2024 9:57 AM FACILITY ATTENDANT): Erythema around FRANK drain, reportedly with purulent [...] 01/23/2024 Assessment & Plan (04/02/2024 10:14 AM FACILITY ATTENDANT): TTE (01/21): EF 74%, G2DD, mod calcified mitral valve annulus + severe mitral stenosis, PASP 33mHg Outpatient follow up with Cardiology in [facility] Assessment & Plan (03/22/2024 5:27 PM FACILITY ATTENDANT): Noted on TTE 01/2024 - To be [...] discharge, SW/CM updated. 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 TTE 01/22/24: [...] monotherapy. Prasugrel was discontinued by his outpatient underwriter mortgage loan Pulmonary HTN 01/19/2024 Assessment & Plan (03/21/2024 11:03 PM FACILITY ATTENDANT): Evaluated by pHTN service at [facility] - felt to be Group 5 (2/2 ESRD) and Group 1 (cirrhosis), though likely also has Group 2/3 component in the context of severe mitral stenosis and pulmonary emphysema. - Per [facility] pHTN group, it is very unlikely the patient is going to be a candidate ofr pulmonary vasodilator therapy - Baseline chronic hypoxemia requiring 3-4 L O2 Assessment & Plan (01/24/2024 9:42 AM CDT): -Follows with OSH ([facility]) Pulmonology --From most recent OSH [...] 01/19/2024 Assessment & Plan (04/02/2024 10:14 AM FACILITY ATTENDANT): On home O2 at times though pt states he doesn't actually use it. Outpt f/u with pulmonary in [facility] Assessment & Plan (03/21/2024 11:03 PM FACILITY ATTENDANT): Continue incruse ellipta, PRN albuterol Assessment & [...] AM CDT): -01/18 med list updated in [facility] History of pulmonary embolism 01/19/2024 Assessment & Plan (03/21/2024 10:56 PM FACILITY ATTENDANT): Unable to find records of PE, but noted RUE DVT 05/10/22 ([facility] [place]). - No longer on anticoagulation Assessment & [...] NGT in place -CT A/P repeated at [facility] on arrival - Large right inguinal hernia [...] monotherapy. Prasugrel was discontinued by his outpatient underwriter mortgage loan Cirrhosis of liver with ascites 01/18/2024 Assessment & Plan (04/02/2024 10:13 AM FACILITY ATTENDANT): Follows with GI in [facility]. [...] evaluation Assessment & Plan (03/23/2024 6:12 PM FACILITY ATTENDANT): History of hykuvfsws-og-aqhjalc ascites. Poor candidate for TIPS based on consult documentation from 01/2024 due concern for pulmonary HTN/right-sided heart disease, ?history of hepatic encephalopathy. Low SAAG on prior ascites studies argues against portal HTN. Has hx SBP. S/p LVP at [facility] on 03/19 with 7L removed. - para (03/23): 118 nucleated cells, 4L off - OSH para (03/19): 154 nucleated cells - Continue lactulose, titrate to 3-5 BM/day Assessment & Plan (01/24/2024 9:44 AM CDT): -Unknown etiology of cirrhosis -Follows with OS ([facility]) Gastroenterology in [place], [place] -Last clinic visit 09/07/23 > referred to [facility] Hepatology for TIPS evaluation, no [facility] documentation -Most recent EGD 11/07/22, negative [...] 01/17 Assessment & Plan (04/02/2024 10:14 AM FACILITY ATTENDANT): HD per renal Assessment & Plan (03/24/2024 1:21 PM FACILITY ATTENDANT): Anuric, HD TTS via LUE AVF. Received [...] Hypertension Assessment & Plan (04/02/2024 10:14 AM FACILITY ATTENDANT): Home meds; outpt f/u Assessment & Plan (03/23/2024 6:15 PM FACILITY ATTENDANT): Patient does not recall the bulk of his medications. Medications reconciled through review of his latest available dialysis center documentation. Favor adjusting at discharge, including limiting hydralazine as able. - Continue amlodipine 10 daily, Coreg 25 BID, hydralazine 100 TID, Imdur 240 daily, minoxidil 2.5 TID (down from 10 TID at last [facility] discharge) - resume losartan 03/24 - Does [...] 03/23/202403/06 Assessment & Plan (04/01/2024 6:54 AM FACILITY ATTENDANT): Mild hyperkalemia at 5.2; nephrology recommended Lokelma 10 mg while waiting for dialysis (has history of recent admission with hyperkalemia) Hold losartan given recurrent hyperkalemia Monitor potassium level closely Monitor with daily BMP while inpatient, if potassium rising again consider b.i.d. labs campaign consultant Hyperphosphatemia Per Nephrology, monitor phosphorus 2 to 3 times a week while inpatient and substituting PhosLo with sevelamer 1600 t.i.d. 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 - problem added per billing, manage per ESRD and cirrhosis Umbilical hernia 01/19/2024 04/02/2024 Assessment & Plan (04/01/2024 7:14 AM FACILITY ATTENDANT): History of inguinal hernia s/p repair (Dr. [...] uit: Not Asked; Counseling Given: Not Answered [facility] [employer] Answer Date Recorded In the past 12 [...] week 03/25/2024 How often do you attend jain or congregational serv ices? Never 03/25/2024 Do you belong to any clubs o r organizations such as jain groups, unions, fraternal or athletic groups, or [...] [facility] in the [facility] were you homeless or living in a long-term (including now)? No 03/25/2024 Personal Safety Answer Date Recorded Have you ever been in or are you currently in a harmful physical or emotional relationship or is someone making you feel afraid or unsafe? Denies 04/01/2024 Sex and Gender Information Value Date Recorded Sex Assigned at Not on file Legal Sex Male 7:34 PM FACILITY ATTENDANT Gender Identity Not on file Sexual Orientation Not on file Obstetrics History Last Filed Vital Signs Vital Sign Reading Time Taken Comments Blood Pressure 159/92 04/02/2024 10:10 AM FACILITY ATTENDANT Pulse 71 04/02/2024 10:10 AM FACILITY ATTENDANT Temperature 36.3 C (97.3 F) 04/02/2024 10:10 AM FACILITY ATTENDANT Respiratory Rate 18 04/02/2024 10:10 AM FACILITY ATTENDANT Oxygen Saturation 95% 04/02/2024 10:10 AM FACILITY ATTENDANT Inhaled Oxygen Concentration - - Weight 79.8 kg (176 lb) 04/02/2024 5:40 AM FACILITY ATTENDANT Height 185.4 cm (6' 1 ) 04/01/2024 6:10 AM FACILITY ATTENDANT Body Mass Index 23.22 04/01/2024 6:10 AM FACILITY ATTENDANT Plan of Treatment Health Maintenance Due Date [...] Completed 01/22/2014 Medical Devices Implanted Type Area Route Sales Delivery Driver Device Identifier Shelf Expiration Date Model / Serial / Lot [employer] 6x3in Large Pore Knit Monofilament Smooth [place] [id number] - [id number] Implanted:Qty: 1 on 01/20/2024 by Joey Cardenas MD at [facility] Mesh Right: Inguinal [employer] [id number] 11/29/2027 [id number] / / [id number] Procedures Procedure Name Priority Date/Time Associated Diagnosis [...] Most Recently Relevant to Health Maintenance [place] [facility] DUAL COMPLETE [id number] [facility] PRIVATE [address] [id number] [facility] HEALTH [facility] MEDICARE [facility]IC[facility] Advance Directives For more information, please contact: [phone] * Full Code (Latest Code Status on File) Date Activated Date Inactivated Comments 04/01/2024 6:45 AM 04/02/2024 8:07 PM * Full Code Date Activated Date Inactivated Comments 03/21/2024 10:43 PM 03/26/2024 1:47 AM * Full Code Date Activated Date Inactivated Comments 01/18/2024 11:21 PM 01/24/2024 6:51 PM Care Teams Him Assistant Relationship Specialty Start Date End Date Delio Salazar MD [address] [place] [address] PCP - General Family Medicine 09/19/23 Hank Cruz MD Referring Physician Nephrology 02/18/18
--- OUTSIDE RECORDS SUMMARY | 2025-01-13 17:37 | XMS_ITS | Clinical Summary ---
Author Organization [facility] Address [address] [place] [address] Phone Care Team Providers Care Oracle Bpm Developer Name Role Phone Delio Salazar MD Primary [...] 03/05/20 21 Active naloxone (NARCAN) 4 mg/spray [place], Non-Aerosol EMERGENCY USE ONLY: Administer 1 spray [...] Delayed Release (E.C.)Indication s:Coronary artery disease involving chipewwa coronary artery of chipewwa heart without angina pectoris Take 1 tablet by mouth once daily 100 Tablet 1 10/19/19 24 Active atorvastatin (LIPITOR) 40 mg tabletIndication s:Coronary artery disease involving chipewwa coronary artery of chipewwa heart without angina pectoris take 1 tablet by mouth once daily at bedtime 100 Tablet 1 10/22/19 24 Active carvediloL (COREG) 25 mg tabletIndication s:Essential hypertension,Cor onary artery disease involving chipewwa coronary artery of chipewwa heart without angina pectoris TAKE 1 & [...] Date Type Department Care Team Description [facility] [address] [phone] Freddie Cruz Jr., MD Palliative care by specialist; ESRD (end stage renal disease) on dialysis (CMS/HCC); Hepatic cirrhosis, unspecified hepatic cirrhosis type, unspecified whether ascites present (CMS/HCC) 12/29/2024 [facility] Supportive Care [facility] [address] [phone] Freddie Cruz Jr., MD Palliative care by specialist; ESRD (end stage renal disease) on dialysis (CMS/HCC); Hepatic cirrhosis, unspecified hepatic cirrhosis type, unspecified whether ascites present (CMS/HCC) 12/28/2024 External Device Data STL ABSTRACTION Provider, Abstract 12/28/2024 [id number] [place] [phone] Macario Perales Cancer (Spiritual care) 12/27/2024 External Device Data STL ABSTRACTION Provider, Abstract 12/26/2024 [facility] [address] [place] [address] Macario Perales Spiritual Distress (Spiritual care) 12/23/2024 Telephone [facility] Spiritual Care [address] [place] [address] Reva Mtz Referral (Palliative Care Spiritual Assessment) 12/21/2024 3:30 PM CDT Office Visit [facility] Vascular Surgery [place] [address] [place] [address] Dre Gonzalez MD ESRD (end stage renal disease) ([facility]/HCC) (Primary Dx) 12/21/2024 2:20 PM CDT Office Visit [facility] [address] [facility] [address] [place] [address] Brittani Mcdonnell NP Mitral valve stenosis, unspecified etiology (Primary Dx); ASHD (arteriosclerotic heart disease); NSTEMI (non-ST elevated myocardial infarction) ([facility]); S/P drug eluting coronary stent placement; ESRD on hemodialysis ([facility]/HCC); Severe pulmonary hypertension ([facility]/HCC); Cirrhosis of liver without ascites, unspecified hepatic cirrhosis type ([facility]/HCC); Nonrheumatic tricuspid valve regurgitation 12/21/2024 11:45 AM CDT Office Visit [facility] Supportive Care [facility] [address] [place] [address] Emerita Urban ANP Palliative care by specialist (Primary Dx); Essential hypertension; Coronary artery disease involving chipewwa coronary artery of chipewwa heart without angina pectoris; Chronic obstructive pulmonary disease, unspecified COPD type ([facility]/HCC); Gastroesophageal reflux disease without esophagitis; Cirrhosis of liver with ascites, unspecified hepatic cirrhosis type ([facility]/HCC); ESRD (end stage renal disease) on dialysis ([facility]/HCC); Recurrent major depressive disorder, in partial remission; Depression screen; Other specified counseling; Chronic diastolic heart failure ([facility]/HCC) 12/21/2024 Refill [facility] Supportive Care [facility] [address] [place] [address] Emerita Urban ANP Palliative care by specialist (Primary Dx); ESRD (end stage renal disease) on dialysis (CMS/HCC); Hepatic cirrhosis, unspecified hepatic cirrhosis type, unspecified whether ascites present (CMS/HCC) 12/19/2024 [facility] [address] [phone] Mal Junior MD Essential hypertension 12/19/2024 Telephone [facility] Vascular Surgery [address] [place] [address] Lily Luna MD Needs Appointment 12/09/2024 1:30 PM CDT Office Visit [facility] Vascular Surgery [address] [address] Lily Luna MD ESRD (end stage renal disease) (CMS/HCC) (Primary Dx); Pseudoaneurysm of arteriovenous dialysis fistula, initial encounter 12/09/2024 [facility] [address] [address] Mal Junior MD Essential hypertension 12/07/2024 Orders Only [facility] Gastroenterology- [address] [place] [address] Jason Perera MD Cirrhosis of liver with ascites, unspecified hepatic cirrhosis type (CMS/HCC) (Primary Dx) 11/29/2024 Telephone [facility] Vascular Surgery [address] [place] [address] Lily Luna MD Appointment Notification 11/25/2024 2:49 PM CDT - 11/25/2024 8:14 PM CDT Emergency [facility] Emergency Department [address] [place] [address] Vernon Young, Ino Paz DO Dependence on renal dialysis (Primary Dx); Problem with dialysis access, initial encounter Discharge Disposition: Home or Self Care 11/25/2024 Travel 11/23/2024 Telephone [facility] Vascular Surgery [place] [address] [place] [phone] Dre Gonzalez MD Needs Appointment 11/04/2024 5:28 AM CDT - 11/04/2024 7:55 AM CDT Emergency [facility] Emergency Medicine [address] [facility] [address] [place] [phone] Evan Taylor MD Pneumonia of right lower lobe due to infectious organism (Primary Dx); Chronic pulmonary edema; Hyperkalemia Discharge Disposition: Home or Self Care 10/30/2024 4:15 PM CDT - 10/30/2024 11:59 PM CDT Hospital Encounter [facility] Emergency Medical Services [place] [address] [place] [address] Ambulance, [facility] Discharge Disposition: [facility] 10/28/2024 1:00 PM CDT Clinical Support [facility] Supportive Care [facility] [address] [place] [address] Saskia Slaughter MSW Other specified counseling (Primary Dx) 10/21/2024 2:00 PM CDT Video Visit [facility] Supportive Care [facility] [address] [place] [address] Freddie Cruz Jr., MD Scrotal swelling (Primary Dx); ESRD (end stage renal disease) on dialysis (CMS/HCC); Hepatic cirrhosis, unspecified hepatic cirrhosis type, unspecified whether ascites present (CMS/HCC); Palliative care by specialist 10/14/2024 1:00 PM CDT Office Visit [facility] Supportive Care [facility] [address] [place] [address] Freddie Cruz Jr., MD ESRD (end stage renal disease) on dialysis (CMS/HCC) (Primary Dx); Hepatic cirrhosis, unspecified hepatic cirrhosis type, unspecified whether ascites present (CMS/HCC) from Last 3 Months Immunizations Immunization Administration Dates Next Due (ADACEL/BOOSTRIX)(10 YR UP) TDAP VACCINE, 0.5ML, IM 03/11/2017,07/15/2016,09/10/2015 (PFIZER)(12 YR UP) COVID-19 VACCINE - EMERGENCY USE AUTHORIZATION, MRNA, [id number](PF) 30 MCG/0.3 ML IM SUSP 12/29/2020,11/28/2020 (PNEUMOVAX [...] on file Legal Sex Male 7:12 AM PATIENT CARE ASSOCIATE Gender Identity Not on file Sexual Orientation [...] Description 02/06/2025 1:15 PM CDT Office Visit [facility] Supportive Care [facility] [address] [facility] [address] [place] [address] Gayathri Stubbs MD [address] [facility] [address] [place] [phone] 03/08/2025 11:30 AM PATIENT CARE ASSOCIATE Office Visit [facility] Gastroenterology- [place] [address] [facility] [address] [place] [address] Jason Perera MD [address] [facility] [address] [place] [address] 06/28/2025 2:00 PM PATIENT CARE ASSOCIATE Office Visit [facility] [address] [facility] [address] [place] [address] Gilberto Hurtado MD [address] [facility] [address] [place] [address] Health Maintenance Due Date Last [...] history exists Medical Devices Implanted Type Area Apartment Community Manager Device Identifier Shelf Expiration Date Model / Serial / Lot Cath Dyls Glidepath 23cm [id number] Implanted:Qty : 1 on 07/26/2018 by Miguel Monzon MD Catheter Right: Chest CR BARD- [employer] 08/02/2019 [id number] / / [id number] Cath Dialysis Glidepath 14.5fr 24cm Std [id number] - [id number] Implanted:Qty : 1 on 11/25/2024 by Fransico Frey MD at [facility] Catheter Right: Chest Wall BARD AMINAH VASC [id number] 04/02/2026 [id number] / / [id number] Clip Ligating Horizon Red 666653 - Csc - [id number] Implanted:Qty : 1 on 07/08/2024 by Dre Gonzalez MD at [facility] Clip Left: Arm [employer] [id number] 03/26/2029 [id number] / / [id number] Clip Ligating Horizon Med Ti 585153 - Csc - [id number] Implanted:Qty : 1 on 07/08/2024 by Dre Gonzalez MD at [facility] Clip Left: Arm TELE[employer]LEX- WECK CLOSURE SYS [id number] 02/08/2029 [id number] / / [id number] Dev Closure Angioseal 6fr Vip [id number] - [id number] Implanted:Qty : 1 on 11/06/2022 by Betty Day MD at [facility] Closure Device Right: Groin [facility] 05/03/2023 [id number] / / [id number] Dev Vasc Closure Vascade 6-7fr [id number] - [id number] Implanted:Qty : 1 on 11/06/2022 at [facility] Closure Device Right: Groin [employer] 12/27/2023 [id number] / / [id number] Agent Hemostat Surgicel 3x4in 1943s - [id number] Implanted:Qty : 1 on 07/08/2024 by Dre Gonzalez MD at [facility] Hemostatic Left: Arm [employer] 03/03/2029 [id number] / / [id number] Stent Synergy Xd 3.5x24mm Evrlms Elut [id number] - [id number] Implanted:Qty : 1 on 11/06/2022 by Betty Day MD at [facility] Stent Right: Coronary [employer] 06/09/2024 [id number] / / [id number] Procedures Procedure Name Priority Date/Time Associated Diagnosis [...] AP 1 VW Stat 5:[address] ABDOMEN PELVIS WO CONTRAST Stat 10/09/2024 12:00 AM CDT HEMOGLOBIN A1C Routine 07/21/2021 from Last 3 Months or Most Recently Relevant to Health Maintenance Results * HEMODIALYSIS (11/25/2024 7:11 PM CDT) Narrative Zan Mullins RN - 11/25/2024 7:11 PM CDT Zan Mullins, RN 11/25/2024 7:14 PM Renal Replacement Therapy [...] to the venous access site. The 14.5 Jamaican, 19 cm (tip to cuff), dual-lumen dialysis [...] peel-away inner dilator were removed. The 14.5 Jamaican dialysis catheter was advanced through the peel-away [...] to the venous access site. The 14.5 Jamaican, 19 cm (tip to cuff), dual-lumen dialysis [...] peel-away inner dilator were removed. The 14.5 Jamaican dialysis catheter was advanced through the peel-away [...] 4.5 - 11.0 K/uL 11/25/2024 3:24 PM [facility] RBC 3.54(L) 4.60 - 6.20 M/uL 11/25/2024 3:24 PM [facility] HEMOGLOBIN 9.6(L) 14.0 - 18.0 g/dL 11/25/2024 3:24 PM [facility] HEMATOCRIT 31.0(L) 41.0 - 53.0 % 11/25/2024 3:24 PM [facility] MCV 87.6 84.0 - 103.0 fL 11/25/2024 3:24 PM [facility] MCH 27.1 27.0 - 34.0 pg 11/25/2024 3:24 PM [facility] MCHC 31.0 30.0 - 35.0 g/dL 11/25/2024 3:24 PM [facility] PLATELETS 178 140 - 440 K/uL 11/25/2024 3:24 PM [facility] MPV 10.2 8.9 - 12.8 fL 11/25/2024 3:24 PM [facility] RDW 18.5(H) 11.0 - 14.5 % 11/25/2024 3:24 PM [facility] RDW-STDEV 59.3(H) 37.0 - 54.0 fL 11/25/2024 3:24 PM [facility] NEUTROPHILS 54 42 - 75 % 11/25/2024 3:24 PM [facility] LYMPHOCYTES 18(L) 24 - 44 % 11/25/2024 3:24 PM [facility] MONOCYTES 13(H) 2 - 10 % 11/25/2024 3:24 PM [facility] EOSINOPHILS 15(H) 0 - 7 % 11/25/2024 3:24 PM [facility] BASOPHILS 1 0 - 1 % 11/25/2024 3:24 PM [facility] IMMATURE GRANULOCYTES 0 0 - 2 % 11/25/2024 3:24 PM [facility] NEUTROPHIL ABSOLUTE 1.78(L) 2.00 - 8.00 K/uL 11/25/2024 3:24 PM CDT [facility] LYMPHOCYTE ABSOLUTE 0.58(L) 1.20 - 4.00 K/uL 11/25/2024 3:24 PM CDT [facility] MONOCYTE ABSOLUTE 0.43 0.10 - 0.60 K/uL 11/25/2024 3:24 PM CDT [facility] EOSINOPHIL ABSOLUTE 0.48 0.00 - 0.70 K/uL 11/25/2024 3:24 PM CDT [facility] BASOPHILS ABSOLUTE 0.04 0.00 - 0.20 K/uL 11/25/2024 3:24 PM CDT [facility] IMMATURE GRANULOCYTES ABSOLUTE 0.01 0.00 - 0.10 K/uL 11/25/2024 3:24 PM CDT [facility] SMEAR REVIEWED: NA - Not Applicable 11/25/2024 3:24 PM CDT [facility] Blood Venipuncture / Unknown 11/25/2024 3:08 PM CDT 11/25/2024 3:12 PM CDT us Vernon Young DO HEMATOLOGY ORDERABLES Final Result [facility] [id number] [address] [place] [address] * (ABNORMAL) COMPREHENSIVE METABOLIC PANEL (11/25/2024 3:08 PM CDT) SODIUM 132(L) 136 - 145 mmol/L 11/25/2024 3:59 PM CDT [facility] POTASSIUM 4.6 3.5 - 5.1 mmol/L 11/25/2024 3:59 PM CDT [facility] CHLORIDE 98 98 - 107 mmol/L 11/25/2024 3:59 PM CDT [facility] CO2 23 22 - 29 mmol/L 11/25/2024 3:59 PM CDT [facility] CALCIUM 10.5(H) 8.6 - 10.0 mg/dL 11/25/2024 3:59 PM T [facility] BUN 19 6 - 20 mg/dL 11/25/2024 3:59 PM T [facility] CREATININE 4.80(H) 0.67 - 1.17 mg/dL 11/25/2024 3:59 PM T [facility] GLUCOSE 90 74 - 99 mg/dL 11/25/2024 3:59 PM T [facility] TOTAL PROTEIN 7.2 6.4 - 8.3 g/dL 11/25/2024 3:59 PM T [facility] ALBUMIN 2.7(L) 3.5 - 5.2 g/dL 11/25/2024 3:59 PM T [facility] BILIRUBIN TOTAL 0.4 0.0 - 1.0 mg/dL 11/25/2024 3:59 PM [facility] ALKALINE PHOSPHATASE 121 40 - 129 U/L 11/25/2024 3:59 PM [facility] AST 11 10 - 50 U/L 11/25/2024 3:59 PM [facility] ALT <5 <=50 U/L 11/25/2024 3:59 PM [facility] GFR 15(L) >=60 mL/min/1. 73 sq meter 11/25/2024 3:59 PM [facility] Comment:eGFR calculated with 2020 CKD-EPI equation. Vegetarian diet, extremely high or low muscle mass, and may affect results. Cystatin C with Glomerular Filtration Rate is a suitable alternative for these patients. ANION GAP 11 9 - 20 mmol/L 11/25/2024 3:59 PM [facility] Blood Venipuncture / Unknown 11/25/2024 3:08 PM CDT 11/25/2024 3:12 PM CDT us Vernon Young DO CHEMISTRY ORDERABLES Final Result [facility] # [id number] [facility] [address] [place] [address] * COVID-19 ANTIGEN (11/04/2024 6:01 AM CDT) COVID-19 ANTIGEN Presumptive Negative Presumptive Negative 11/04/2024 6:28 AM CDT [facility] Upper Respiratory ANTERIOR NARES SWAB / Unknown Collection / Unknown 11/04/2024 6:01 AM CDT 11/04/2024 6:05 AM CDT [facility] - 11/04/2024 6:28 AM CDT Erma SARS antigen test has been authorized by FDA under an emergency use authorization (EUA) and has been authorized only for the detection of proteins from SARS-CoV-2 and influenza, not for any other viruses or pathogens. Erma SARS Antigen PHILLIP is intended for the simultaneous qualitative detection and differentiation of nucleocapsid protein antigen from SARS-CoV-2 directly from nasopharyngeal (COMMUNITY RELATIONS ASSISTANT) and nasal (NS) swab specimens collected from [...] O RDERABLES Final Result Performing Organization Address [facility]/ZIP Co de Phone Number [facility] [id number] [address] [place] [address] * INFLUENZA VIRUS A AND B, ANTIGEN DETECTION (11/04/2024 6:01 AM CDT) Pathologist [facility] INFLUENZA A AG NOT DETECTED Not Detected 11/04/2024 6:28 AM CDT [facility] INFLUENZA B AG NOT DETECTED Not Detected 11/04/2024 6:28 AM CDT [facility] Upper Respiratory ENTIRE NASOPHARYNX / Unknown Collection / Unknown 11/04/2024 6:01 AM CDT 11/04/2024 6:05 AM CDT [facility] - 11/04/2024 6:28 AM CDT Negative results do not rule out infection. If clinically indicated, consider PCR testing which is more sensitive than antigen testing. If PCR testing is desired, consult with your local laboratory as sample recollection may be required. vEan Taylor MD MICROBIOLOGY - GENERAL O RDERABLES Final Result Performing Organization Address [facility] Co de Phone Number [facility] # [id number] [address] [place] [phone] * (ABNORMAL) BASIC METABOLIC PANEL (11/04/2024 6:01 AM CDT) Pathologist [facility] SODIUM 132(L) 136 - 145 mmol/L 11/04/2024 6:24 AM CDT [facility] POTASSIUM 6.0(H) 3.5 - 5.1 mmol/L 11/04/2024 6:24 AM T [facility] Comment:Moderate hemolysis p resent. Can cause significant falsely elevated result. Redraw if indicated. CHLORIDE 98 98 - 107 mmol/L 11/04/2024 6:24 AM [facility] 28 22 - 29 mmol/L 11/04/2024 6:24 AM [facility] CALCIUM 10.1(H) 8.6 - 10.0 mg/dL 11/04/2024 6:24 AM T [facility] BUN 17 6 - 20 mg/dL 11/04/2024 6:24 AM [facility] CREATININE 3.59(H) 0.67 - 1.17 mg/dL 11/04/2024 6:24 AM [facility] GLUCOSE 91 74 - 99 mg/dL 11/04/2024 6:24 AM [facility] GFR 21(L) >=60 mL/min/1.7 3 sq meter 11/04/2024 6:24 AM [facility] Comment:eGFR calculated with 2020 CKD-EPI equation. Vegetarian diet, extremely high or low muscle mass, and may affect results. Cystatin C with Glomerular Filtration Rate is a suitable alternative for these patients. ANION GAP 6 5 - 20 mmol/L 11/04/2024 6:24 AM [facility] Blood BLOOD SPECIMEN / Unknown Venipuncture / Unknown 11/04/2024 6:01 AM CDT 11/04/2024 6:05 AM CDT us Evan Taylor MD CHEMISTRY ORDERABLES Fin al Result [facility] # [id number] [address] [place] [address] * XR CHEST PA OR AP 1 [...] consistent with congestive failure with pulmonary edema. us Evan Taylor MD DIAGNOSTIC IMAGING ORDER RENE [...] Most Recently Relevant to Health Maintenance Insurance [address] [place] [address] [id number] [place] DUAL COMPLETE HMO [facility] [id number] RX [employer] Medicare Part D RX INFOCROSSING [place] [address] MEDICAID [place] Advance Directives For more information, please contact: [phone] * Full Code (Latest Code Status on [...] 4:49 PM 05/06/2024 4:08 PM Care Teams Oracle Bpm Developer Relationship Specialty Start Date End Date Delio Salazar MD [address] [place] [phone] PCP - General Family Practice 01/30/24
--- OUTSIDE RECORDS SUMMARY | 2025-01-13 17:37 | XMS_ITS ---
Author Organization [facility] Address [address] [place] [address] Care Team Providers Care Surface Boss Name Role Phone Hank Cruz MD Unavailable [phone] Delio Salazar MD Primary Care Provider + [...] 04/01/2024 Assessment & Plan (04/02/2024 10:16 AM STRAIGHTENER AND ALIGNER): This is the reason pt was sent to our hospital. Seen by urology in ED and no further acute evaluation warranted. Likely component of scar tissue related to prior infarction/orchiectomy. This is exacerbated by persistent pressure related to anasarca/ascites. - pt wishes to follow up with a urologist in [place] given distance to [place] - plan home today if able to arrange ride home I have personally spent 40 minutes today including time with the patient, time reviewing data, time discussing with other providers, and time on discharge planning and documentation. Anasarca 04/01/2024 Assessment & Plan (04/02/2024 10:11 AM STRAIGHTENER AND ALIGNER): HD and DUF as tolerated. Pt wishes to return home and go to usual dialysis center - s/p LVP and will need LVP's prn Abdominal pain 03/24/2024 Assessment & Plan (03/24/2024 1:20 PM STRAIGHTENER AND ALIGNER): Suspect baseline given cirrhosis, hernia repair and ongoing umbilical hernia (reducible). Patient had BM 03/24, encouraged to keep this up as outpatient. - ok to discharge with some pain medications Cellulitis of drainage site following surgery Assessment & Plan (03/25/2024 9:57 AM STRAIGHTENER AND ALIGNER): Erythema around FRANK drain, reportedly with purulent [...] 01/23/2024 Assessment & Plan (04/02/2024 10:14 AM STRAIGHTENER AND ALIGNER): TTE (01/21): EF 74%, G2DD, mod calcified mitral valve annulus + severe mitral stenosis, PASP 33mHg Outpatient follow up with Cardiology in [facility] Assessment & Plan (03/22/2024 5:27 PM STRAIGHTENER AND ALIGNER): Noted on TTE 01/2024 - To be [...] discharge, SW/CM updated. 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 TTE 01/22/24: [...] monotherapy. Prasugrel was discontinued by his outpatient labor service representative Pulmonary HTN 01/19/2024 Assessment & Plan (03/21/2024 11:03 PM STRAIGHTENER AND ALIGNER): Evaluated by pHTN service at [facility] - felt to be Group 5 (2/2 ESRD) and Group 1 (cirrhosis), though likely also has Group 2/3 component in the context of severe mitral stenosis and pulmonary emphysema. - Per [facility] pHTN group, it is very unlikely the patient is going to be a candidate ofr pulmonary vasodilator therapy - Baseline chronic hypoxemia requiring 3-4 L O2 Assessment & Plan (01/24/2024 9:42 AM CDT): -Follows with OSH ([facility]) Pulmonology --From most recent OSH Pulm note [...] 01/19/2024 Assessment & Plan (04/02/2024 10:14 AM STRAIGHTENER AND ALIGNER): On home O2 at times though pt states he doesn't actually use it. Outpt f/u with pulmonary in [facility] Assessment & Plan (03/21/2024 11:03 PM STRAIGHTENER AND ALIGNER): Continue incruse ellipta, PRN albuterol Assessment & [...] AM CDT): -01/18 med list updated in [facility] History of pulmonary embolism 01/19/2024 Assessment & Plan (03/21/2024 10:56 PM STRAIGHTENER AND ALIGNER): Unable to find records of PE, but noted RUE DVT 05/10/22 ([facility]). - No longer on anticoagulation Assessment & [...] NGT in place -CT A/P repeated at [facility] on arrival - Large right inguinal hernia [...] monotherapy. Prasugrel was discontinued by his outpatient labor service representative Cirrhosis of liver with ascites 01/18/2024 Assessment & Plan (04/02/2024 10:13 AM STRAIGHTENER AND ALIGNER): Follows with GI in [facility]. Per chart review, unclear if has actual [...] evaluation Assessment & Plan (03/23/2024 6:12 PM STRAIGHTENER AND ALIGNER): History of [id number]-bt-sscyozh ascites. Poor candidate for TIPS based on consult documentation from 01/2024 due concern for pulmonary HTN/right-sided heart disease, ?history of hepatic encephalopathy. Low SAAG on prior ascites studies argues against portal HTN. Has hx SBP. S/p LVP at [facility] on 03/19 with 7L removed. - para (03/23): 118 nucleated cells, 4L off - OSH para (03/19): 154 nucleated cells - Continue lactulose, titrate to 3-5 BM/day Assessment & Plan (01/24/2024 9:44 AM CDT): -Unknown etiology of cirrhosis -Follows with OS ([facility]) Gastroenterology in [place], [place] -Last clinic visit 09/07/23 > referred to [facility] Hepatology for TIPS evaluation, no [facility] documentation -Most recent EGD 11/07/22, negative [...] 01/17 Assessment & Plan (04/02/2024 10:14 AM STRAIGHTENER AND ALIGNER): HD per renal Assessment & Plan (03/24/2024 1:21 PM STRAIGHTENER AND ALIGNER): Anuric, HD TTS via LUE AVF. Received [...] Hypertension Assessment & Plan (04/02/2024 10:14 AM STRAIGHTENER AND ALIGNER): Home meds; outpt f/u Assessment & Plan (03/23/2024 6:15 PM STRAIGHTENER AND ALIGNER): Patient does not recall the bulk of his medications. Medications reconciled through review of his latest available dialysis center documentation. Favor adjusting at discharge, including limiting hydralazine as able. - Continue amlodipine 10 daily, Coreg 25 BID, hydralazine 100 TID, Imdur 240 daily, minoxidil 2.5 TID (down from 10 TID at last [facility] discharge) - resume losartan 03/24 - Does [...] uit: Not Asked; Counseling Given: Not Answered [facility] Utilities Answer Date Recorded In the past 12 months has [employer], or water [employer] threatened to shut off services in your home? No 03/25/2024 Social Connection and Isolation Panel Answer Date Recorded In a typical week, how many times do you talk on the phone with family, friends, or neighbors? Once a week 03/25/2024 How often do you get together with friends or re latives? Once a week 03/25/2024 How often do you attend mosque or yazidism serv ices? Never 03/25/2024 Do you belong to any clubs o r organizations such as mosque groups, unions, fraternal or athletic groups, or [...] any time in the past 12 m [facility], were you homeless or living in a skilled nursing (including now)? No 03/25/2024 Personal Safety Answer Date Recorded Have you ever been in or are you currently in a harmful physical or emotional relationship or is someone making you feel afraid or unsafe? Denies 04/01/2024 Sex and Gender Information Value Date Recorded Sex Assigned at Not on file Legal Sex Male 7:34 PM STRAIGHTENER AND ALIGNER Gender Identity Not on file Sexual Orientation Not on file Last Filed Vital Signs Vital Sign Reading Time Taken Comments Blood Pressure 159/92 04/02/2024 10:10 AM STRAIGHTENER AND ALIGNER Pulse 71 04/02/2024 10:10 AM STRAIGHTENER AND ALIGNER Temperature 36.3 C (97.3 F) 04/02/2024 10:10 AM STRAIGHTENER AND ALIGNER Respiratory Rate 18 04/02/2024 10:10 AM STRAIGHTENER AND ALIGNER Oxygen Saturation 95% 04/02/2024 10:10 AM STRAIGHTENER AND ALIGNER Inhaled Oxygen Concentration - - Weight 79.8 kg (176 lb) 04/02/2024 5:40 AM STRAIGHTENER AND ALIGNER Height 185.4 cm (6' 1 ) 04/01/2024 6:10 AM STRAIGHTENER AND ALIGNER Body Mass Index 23.22 04/01/2024 6:10 AM STRAIGHTENER AND ALIGNER Results * Serum Hepatitis panel (01/22/2014 4:31 [...]
--- OUTSIDE RECORDS SUMMARY | 2025-01-13 17:37 | XMS_ITS | Encounter Summary ---
Author Organization [facility] Address 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 Gender Identity Not on file Sexual Orientation Not on file documented as of this encounter Plan of Treatment Upcoming Encounters Date Type Department Care Team (Dana st Contact Info) Description 02/06/2025 1:15 PM CDT Office Visit [facility] Supportive Care [facility] [address] [facility] [address] [place] [address] Gayathri Stubbs MD [address] [place] [phone] 03/08/2025 11:30 AM DESIGN ENGINEER Office Visit [facility] Gastroenterology- [place] [address] [place] [address] Jason Perera MD [address] [place] [address] 06/28/2025 2:00 PM DESIGN ENGINEER Office Visit [facility] [address] [place] [address] Gilberto Hurtado MD [address] [facility] [address] [place] [address] documented as of this encounter [...] documented as of this encounter Care Teams Welding Technician Relationship Specialty Start Date End Date Delio Salazar MD [address] [place] [phone] PCP - General Family Practice 01/30/24 documented as of this encounter
[2025-01-13 18:29] LABS: Hematocrit 31.2 % (37-53); Hemoglobin 9.60 g/dL (11.27-16.99); Mean Corpuscular HGB Conc 30.8 g/dL (30-55); Mean Corpuscular Hemoglobin 26.4 pg (27-33); Mean Corpuscular Volume 86.0 fl (82-101); Platelet Count 166 10^3/cmm (157-399); Red Blood Count 3.63 10^6/uL (3.85-5.65); White Blood Count 3.30 10^3/uL (3.29-11.43)
[2025-01-13 18:55] LABS: Alanine Aminotransferase < 5 U/L (0-41); Albumin Level 2.3 g/dL (3.5-5.2); Alkaline Phosphatase 129 U/L (40-130); Anion Gap 11.8 (5-19); Aspartate Amino Transferase 12 U/L (0-40); Blood Urea Nitrogen 16 mg/dL (6-20); Calcium 10.1 mg/dL (8.5-10.5); Carbon Dioxide 23 mmol/L (22-29); Chloride 100 mmol/L (98-107); Globulin 4.0 g/dL (1.3-4.6); Glucose 84 mg/dL (65-115); Osmolality Calculated 272 mOsm/kg (285-295); Potassium 3.8 mmol/L (3.5-5.1); Sodium 131 mmol/L (136-145); Total Protein 6.3 g/dL (6.6-8.7)
[2025-01-13 19:09] LABS: Absolute Segmented Neutrophil 2.0 10/cmm (1.6-7.1); Atypical Lymphs 3.0 % (0-5); Band Neutrophils Absolute 0.0 10^3/cmm (0.0-1.2); Slide Review Slide Review Perform; Total Cells Counted 100 (0-100)
[2025-01-13 19:11] LABS: Creatinine Clr Calc Pharmacy 27.2959
== END 2025-01-13 19:08 | disposition left against medical advice (07) ==
PROVIDERS: Family Medicine; Emergency Provider Emergency Medicine; PCP Family Medicine
DX: Z01.89 Encounter for other specified special examinations (principal); Z53.21 Procedure and treatment not carried out due to patient leaving prior to being seen by health care provider
CPT/HCPCS: 36415; 80053; 85007; 85025

== ENCOUNTER 2025-01-13 23:09 | Emergency (ER) | payer OTHER, MEDICAID, SELFPAY ==
[2025-01-13 23:15] VITALS: BP 134/81; PULSE 64; RESP 16; TEMP 36.8; O2SAT 96; BMI 26.4
[2025-01-14] MEDS: fentaNYL 50 mcg/mL INJ 2mL 75 MCG IVP ×2 (03:47→04:40)
[2025-01-14] MEDS: ondansetron 2 mg/ML SDV 2 mL 4 MG IVP (03:47)
[2025-01-14] MEDS: lidocaine-epi 2% 20 mL INJ INJECTION (04:23)
[2025-01-14 04:43] VITALS: PULSE 61; RESP 16; O2SAT 98
--- NOTE | 2025-01-14 05:08 | W.ED.SKABFB ---
HPI - Skin/Abscess/Foreign Bdy General: Chief complaint: Skin/Abscess/Foreign Body Stated complaint: ABSCESS Time Seen by Provider: 01/14/25 03:12 History of Present Illness: 44-year-old male patient with a history of end-stage renal disease. He presents with 2 swollen tender areas, 1 on the right side of his face, and 1 on the right lower abdominal wall. These have increased in size over the last few days. They have increased in pain and redness as well. His right facial cyst is a chronic condition, but pain and redness have worsened over the past couple of days. He has a surgery appointment in 2 weeks to be evaluated for this facial cyst, but is worried he may not make it. As for abdominal wall, abscess started to drain, he denies fever, but reports feeling cold, especially yesterday. No vomiting Related Data Home Medications ?Medication ?Instructions ?Recorded ?Confirmed ferric citrate 210 mg iron tablet 630 mg PO TID 11/03/21 01/12/25 (Auryxia) aspirin 81 mg tablet,delayed 81 mg PO BEDTIME 02/21/22 01/12/25 release vit B,C-folic ac 800 mcg-zinc 12.5 1 tab PO QAM 10/01/22 01/12/25 mg-selen-D3 2,000 unit-vit E tablet (RenaPlex-D) carvedilol 25 mg tablet 50 mg PO Q12H 01/09/23 01/12/25 minoxidil 2.5 mg tablet 10 mg PO TID 05/16/24 01/12/25 sevelamer carbonate 800 mg tablet 1,600 mg PO TID 05/16/24 01/12/25 albuterol sulfate 90 mcg/actuation 1 puff inhalation Q6H PRN 09/19/24 01/12/25 aerosol inhaler Shortness Of Breath umeclidinium 62.5 mcg/actuation 1 inh inhalation DAILY 09/19/24 01/12/25 blister powder for inhalation (Incruse Ellipta) hydromorphone 4 mg tablet 4 mg PO Q6H PRN Pain 10/31/24 01/12/25 Previous Rx's ?Medication ?Instructions ?Recorded clindamycin HCl 300 mg capsule 300 mg PO Q6H 10 days #40 caps 01/14/25 (Cleocin HCl) Allergies Allergy/AdvReac Type Severity Reaction Status Date / Time spironolactone Allergy Intermediate facial Verified 01/06/25 12:16 swelling nifedipine Allergy Unknown ALGY-Swell Verified 01/06/25 12:16 Lip/Tongue/Throat haloperidol (From Haldol) Allergy ADR-Irritab Verified 01/06/25 12:16 le ketorolac Allergy Unknown Verified 01/06/25 12:16 lisinopril Allergy ADR-Swelling Verified 01/06/25 12:16 of the Eye [facility] ED PFS: Medical History (Updated 01/14/25 @ 05:19 by Jose Ward DO) Abdominal ascites history of intermittent paracentesis, transudative fluid; prior work up has included negative biopsy, ceruloplasmin level normal, low iron, high ferritin, normal TIBC, negative HIV, hepatitis panel negative, JESÚS/SCL 70/double-stranded DNA antibodies negative, Alpha-fetoprotein level unremarkable, nonalcoholic by history, has hepatomegaly and splenomegaly Cirrhosis of liver Epididymitis 06/2022 Dyslipidemia History of home oxygen therapy COPD (chronic obstructive pulmonary disease) Patient under care of multiple providers Umbilical hernia Atherosclerosis of coronary artery Stent and balloon angioplasty to proximal 1 OM branch Congestive heart failure preserved ejection fraction History of cardiovascular stress test 07/2022 at [facility] perfusion imaging probably normal, no reversible defects, small fixed defect in apical anterior wall, EF 54%, nonischemic response to stress by EKG criteria Depression Pulmonary hypertension Uses bilevel positive airway pressure (BPAP) ventilation at home History of coronary angiogram 11/2021 - patent stent Inguinal hernia Chronic respiratory failure on home oxygen and bipap Nicotine dependence, cigarettes, with other nicotine-induced disorders Generalized anxiety disorder with panic attacks ESRD on dialysis Chronic abdominal pain COVID 05/25 Hypertensive emergency recurrent episodes Urethral stricture Pulmonary embolism 09/21 CTA inconclusive for very tiny peripheral LEFT lower lobe pulmonary artery sub segmental emboli versus poor opacification. Anemia chronic kidney disease Arteriovenous fistula for hemodialysis in place, secondary Degenerative disc disease, lumbar Hypertension uncontrolled Surgical History History of arteriovenous graft left upper extremity fistula, revision 07/2024 in [place] Stented coronary artery H/O hand surgery Amputation right 2&3 fingers 2017 History of adenoidectomy Family History Other Hypertension Social History Smoking and tobacco/nicotine status: current every day tobacco/nicotine user cigarettes Years cigarettes smoked: 21 [ Other cigarette details: started age 20, currently 0.5ppd ] Quit status (tobacco/nicotine): considering quitting Alcohol intake: never Substance/Drug Use: never Additional social history: Lives with his mother his sister and one of his kids. Patient wants full CODE STATUS as discussed on 10/31/2024 Household members: family Number of children: 3 Current occupational status: disabled Do you think of yourself as: Straight/Heterosexual Physical Exam Const: COMMON NORMALS: no acute distress GENERAL APPEARANCE: cooperative HENMT: OTHER: See skin exam Resp: COMMON NORMALS: normal respiratory effort, No retractions and clear to auscultation bilaterally AUSCULTATION: clear to auscultation bilaterally : PENIS: circumcised and edematous (Edematous shaft. Fully retracted foreskin no cellulitis) Skin: NARRATIVE SKIN EXAM: Examination of the face reveals a right sided maxillary sebaceous cyst in the subcutaneous tissues. There is overlying redness and warmth. There is tenderness. There is no streaking. Exam of the abdominal wall reveals a 3 cm tender, beefy erythematous, swollen and indurated area in the right lower abdominal wall. It is partially opened, and has some minimal drainage that appears to be old blood. Course Vital Signs: Vital signs: Vital Signs Temperature 98.2 F 01/13/25 23:15 Pulse Rate 61 01/14/25 04:43 Respiratory Rate 16 01/14/25 04:43 Blood Pressure 134/81 01/13/25 23:15 Pulse Oximetry 98 01/14/25 04:43 Oxygen Delivery Me thod Nasal Cannula 01/13/25 23:15 Oxygen Flow Rate 3 01/13/25 23:15 MDM - Skin/Abscess/Foreign Bdy Medicial Decision Making No signs of acute decompensated pulmonary edema. He does have an erythematous tender sebaceous cyst on the face. This was incised and drained with copious amounts of sebum and some purulent fluid extracted. He will follow-up with surgery regarding this. As for the abdominal wall abscess, small amount of purulent fluid, and some old blood were removed. Deemed not worth packing. Clindamycin here and at home. He has pain medication at home. Return for worsening symptoms or fever. No radiology studies performed this visit Discharge Plan Discharge Patient Disposition: Home Clinical Impression: Abscess of skin or subcutaneous tissue, Sebaceous cyst, Cellulitis Condition: Stable Prescriptions: New clindamycin HCl [Cleocin HCl] 300 mg capsule 300 mg PO Q6H 10 Days Qty: 40 0RF No Action ferric citrate [Auryxia] 210 mg iron Tablet 630 mg PO TID aspirin 81 mg tablet,delayed release (DR/EC) 81 mg PO BEDTIME RenaPlex-D 800 mcg-12.5 mg -2,000 unit tablet 1 tab PO QAM carvedilol 25 mg tablet 50 mg PO Q12H minoxidil 2.5 mg tablet 10 mg PO TID sevelamer carbonate 800 mg tablet 1,600 mg PO TID albuterol sulfate 90 mcg/actuation HFA aerosol inhaler 1 puff INHALATION Q6H PRN (Reason: Shortness Of Breath) Incruse Ellipta 62.5 mcg/actuation blister with device 1 inh INHALATION DAILY hydromorphone 4 mg tablet 4 mg PO Q6H PRN (Reason: Pain) Discharge Orders: Discharge ED (Routine); Ordered 01/14/25 Ordered By: Jose Ward Referrals: Delio Salazar MD [Primary Care Provider, [facility]] - 1-3 days Patient Instructions: Abscess (ED), Cyst (ED), Opioid Safety, Pain Management, Patient Portal & Elizabeth Instructions Activity Restrictions/Additional Instructions: Keep areas covered and change bandages twice daily. You may use antibiotic ointment. Antibiotics as directed. Warm moist heat may draw out infection as well. Return for fever despite 2-3 more doses of antibiotics, vomiting liquids or medications, worsening spreading redness or streaking despite antibiotics, other concerning symptoms. Follow-up with your doctor early next week for a wound check. Print Language: Czech Coding Level of Care Code ED Kerfer Machine Operator for Cristi Diane
== END 2025-01-14 04:45 | disposition home or self-care (01) ==
PROVIDERS: Emergency Provider Emergency Medicine; PCP Family Medicine
DX: L03.211 Cellulitis of face (principal); L03.311 Cellulitis of abdominal wall; Z79.82 Long term (current) use of aspirin; F17.210 Nicotine dependence, cigarettes, uncomplicated; E78.5 Hyperlipidemia, unspecified; J44.9 Chronic obstructive pulmonary disease, unspecified; I25.10 Atherosclerotic heart disease of native coronary artery without angina pectoris; I13.2 Hypertensive heart and chronic kidney disease with heart failure and with stage 5 chronic kidney disease, or end stage renal disease; N18.6 End stage renal disease; I50.30 Unspecified diastolic (congestive) heart failure
CPT/HCPCS: 96374; 96375; 96376; 99284; J2405; J3010; J9999

== ENCOUNTER 2025-01-18 10:12 | Emergency (ER) | payer OTHER, MEDICAID, SELFPAY ==
--- OUTSIDE RECORDS SUMMARY | 2025-01-18 10:18 | XMS_ITS | Clinical Summary ---
Author Organization [facility] Address [address] [place] [id number] Care Team Providers Care Meteorological Equipment Repairer Name Role Phone Hank Cruz MD Unavailable [phone] Delio Salazar MD Primary Care Provider + [...] 04/01/2024 Assessment & Plan (04/02/2024 10:16 AM TALENT ACQUISITION ADMINISTRATOR): This is the reason pt was sent to our hospital. Seen by urology in ED and no further acute evaluation warranted. Likely component of scar tissue related to prior infarction/orchiectomy. This is exacerbated by persistent pressure related to anasarca/ascites. - pt wishes to follow up with a urologist in [place] given distance to [place] - plan home today if able to arrange ride home I have personally spent 40 minutes today including time with the patient, time reviewing data, time discussing with other providers, and time on discharge planning and documentation. Anasarca 04/01/2024 Assessment & Plan (04/02/2024 10:11 AM TALENT ACQUISITION ADMINISTRATOR): HD and DUF as tolerated. Pt wishes to return home and go to usual dialysis center - s/p LVP and will need LVP's prn Abdominal pain 03/24/2024 Assessment & Plan (03/24/2024 1:20 PM TALENT ACQUISITION ADMINISTRATOR): Suspect baseline given cirrhosis, hernia repair and ongoing umbilical hernia (reducible). Patient had BM 03/24, encouraged to keep this up as outpatient. - ok to discharge with some pain medications Cellulitis of drainage site following surgery Assessment & Plan (03/25/2024 9:57 AM TALENT ACQUISITION ADMINISTRATOR): Erythema around FRANK drain, reportedly with purulent [...] 01/23/2024 Assessment & Plan (04/02/2024 10:14 AM TALENT ACQUISITION ADMINISTRATOR): TTE (01/21): EF 74%, G2DD, mod calcified mitral valve annulus + severe mitral stenosis, PASP 33mHg Outpatient follow up with Cardiology in [facility] Assessment & Plan (03/22/2024 5:27 PM TALENT ACQUISITION ADMINISTRATOR): Noted on TTE 01/2024 - To be [...] discharge, SW/CM updated. 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 TTE 01/22/24: [...] monotherapy. Prasugrel was discontinued by his outpatient core cutter and reamer Pulmonary HTN 01/19/2024 Assessment & Plan (03/21/2024 11:03 PM TALENT ACQUISITION ADMINISTRATOR): Evaluated by pHTN service at [facility] - felt to be Group 5 (2/2 ESRD) and Group 1 (cirrhosis), though likely also has Group 2/3 component in the context of severe mitral stenosis and pulmonary emphysema. - Per [facility] pHTN group, it is very unlikely the patient is going to be a candidate ofr pulmonary vasodilator therapy - Baseline chronic hypoxemia requiring 3-4 L O2 Assessment & Plan (01/24/2024 9:42 AM CDT): -Follows with OSH ([facility]) Pulmonology --From most recent OSH Pulm note [...] 01/19/2024 Assessment & Plan (04/02/2024 10:14 AM TALENT ACQUISITION ADMINISTRATOR): On home O2 at times though pt states he doesn't actually use it. Outpt f/u with pulmonary in [facility] Assessment & Plan (03/21/2024 11:03 PM TALENT ACQUISITION ADMINISTRATOR): Continue incruse ellipta, PRN albuterol Assessment & [...] AM CDT): -01/18 med list updated in [facility] History of pulmonary embolism 01/19/2024 Assessment & Plan (03/21/2024 10:56 PM TALENT ACQUISITION ADMINISTRATOR): Unable to find records of PE, but noted RUE DVT 05/10/22 ([facility] [place]). - No longer on anticoagulation Assessment & [...] NGT in place -CT A/P repeated at [facility] on arrival - Large right inguinal hernia [...] monotherapy. Prasugrel was discontinued by his outpatient core cutter and reamer Cirrhosis of liver with ascites 01/18/2024 Assessment & Plan (04/02/2024 10:13 AM TALENT ACQUISITION ADMINISTRATOR): Follows with GI in [facility]. Per chart review, unclear if has [...] evaluation Assessment & Plan (03/23/2024 6:12 PM TALENT ACQUISITION ADMINISTRATOR): History of wvimbnjod-pe-dsmateg ascites. Poor candidate for TIPS based on consult documentation from 01/2024 due concern for pulmonary HTN/right-sided heart disease, ?history of hepatic encephalopathy. Low SAAG on prior ascites studies argues against portal HTN. Has hx SBP. S/p LVP at [facility] on 03/19 with 7L removed. - para (03/23): 118 nucleated cells, 4L off - OSH para (03/19): 154 nucleated cells - Continue lactulose, titrate to 3-5 BM/day Assessment & Plan (01/24/2024 9:44 AM CDT): -Unknown etiology of cirrhosis -Follows with OS ([facility]) Gastroenterology in [place], [place] -Last clinic visit 09/07/23 > referred [...] 01/17 Assessment & Plan (04/02/2024 10:14 AM TALENT ACQUISITION ADMINISTRATOR): HD per renal Assessment & Plan (03/24/2024 1:21 PM TALENT ACQUISITION ADMINISTRATOR): Anuric, HD TTS via LUE AVF. Received [...] Hypertension Assessment & Plan (04/02/2024 10:14 AM TALENT ACQUISITION ADMINISTRATOR): Home meds; outpt f/u Assessment & Plan (03/23/2024 6:15 PM TALENT ACQUISITION ADMINISTRATOR): Patient does not recall the bulk of his medications. Medications reconciled through review of his latest available dialysis center documentation. Favor adjusting at discharge, including limiting hydralazine as able. - Continue amlodipine 10 daily, Coreg 25 BID, hydralazine 100 TID, Imdur 240 daily, minoxidil 2.5 TID (down from 10 TID at last [facility] discharge) - resume losartan 03/24 - Does [...] 03/23/202403/06 Assessment & Plan (04/01/2024 6:54 AM TALENT ACQUISITION ADMINISTRATOR): Mild hyperkalemia at 5.2; nephrology recommended Lokelma 10 mg while waiting for dialysis (has history of recent admission with hyperkalemia) Hold losartan given recurrent hyperkalemia Monitor potassium level closely Monitor with daily BMP while inpatient, if potassium rising again consider b.i.d. labs case resolution specialist Hyperphosphatemia Per Nephrology, monitor phosphorus 2 to 3 times a week while inpatient and substituting PhosLo with sevelamer 1600 t.i.d. Assessment & Plan (03/23/2024 7:30 PM TALENT ACQUISITION ADMINISTRATOR): Abnormal Na, K likely hypervolemic hyponatremia from ESRD with possible SIADH in setting of cirrhosis. - problem added per billing, manage per ESRD and cirrhosis Umbilical hernia 01/19/2024 04/02/2024 Assessment & Plan (04/01/2024 7:14 AM TALENT ACQUISITION ADMINISTRATOR): History of inguinal hernia s/p repair (Dr. [...] uit: Not Asked; Counseling Given: Not Answered [facility] EPSities Answer Date Recorded In the past 12 [...] week 03/25/2024 How often do you attend jainism or anglican serv ices? Never 03/25/2024 Do you belong to any clubs o r organizations such as jainism groups, unions, fraternal or athletic groups, or [...] any time in the past 12 m [facility], were you homeless or living in a intermediate (including now)? No 03/25/2024 Personal Safety Answer Date Recorded Have you ever been in or are you currently in a harmful physical or emotional relationship or is someone making you feel afraid or unsafe? Denies 04/01/2024 Sex and Gender Information Value Date Recorded Sex Assigned at Not on file Legal Sex Male 7:34 PM TALENT ACQUISITION ADMINISTRATOR Gender Identity Not on file Sexual Orientation Not on file Obstetrics History Last Filed Vital Signs Vital Sign Reading Time Taken Comments Blood Pressure 159/92 04/02/2024 10:10 AM TALENT ACQUISITION ADMINISTRATOR Pulse 71 04/02/2024 10:10 AM TALENT ACQUISITION ADMINISTRATOR Temperature 36.3 C (97.3 F) 04/02/2024 10:10 AM TALENT ACQUISITION ADMINISTRATOR Respiratory Rate 18 04/02/2024 10:10 AM TALENT ACQUISITION ADMINISTRATOR Oxygen Saturation 95% 04/02/2024 10:10 AM TALENT ACQUISITION ADMINISTRATOR Inhaled Oxygen Concentration - - Weight 79.8 kg (176 lb) 04/02/2024 5:40 AM TALENT ACQUISITION ADMINISTRATOR Height 185.4 cm (6' 1 ) 04/01/2024 6:10 AM TALENT ACQUISITION ADMINISTRATOR Body Mass Index 23.22 04/01/2024 6:10 AM TALENT ACQUISITION ADMINISTRATOR Plan of Treatment Health Maintenance Due Date [...] Completed 01/22/2014 Medical Devices Implanted Type Area Corrections Sergeant Device Identifier Shelf Expiration Date Model / Serial / Lot [employer] 6x3in Large Pore Knit Monofilament Smooth [place] [id number] - [id number] Implanted:Qty: 1 on 01/20/2024 by Joey Cardenas MD at [facility] Mesh Right: Inguinal [employer] [id number] 11/29/2027 [id number] / / [id number] Procedures Procedure Name Priority Date/Time Associated Diagnosis [...] Most Recently Relevant to Health Maintenance Insurance [place] [employer] [facility] DUAL COMPLETE [id number] [facility] PRIVATE [address] [address] [facility] HEALTH PLAN MEDICARE [place] [facility] MEDIC[facility] Advance Directives For more information, please contact: [phone] * Full Code (Latest Code Status on File) Date Activated Date Inactivated Comments 04/01/2024 6:45 AM 04/02/2024 8:07 PM * Full Code Date Activated Date Inactivated Comments 03/21/2024 10:43 PM 03/26/2024 1:47 AM * Full Code Date Activated Date Inactivated Comments 01/18/2024 11:21 PM 01/24/2024 6:51 PM Care Teams Meteorological Equipment Repairer Relationship Specialty Start Date End Date Delio Salazar MD [address] [place] [address] PCP - General Family Medicine 09/19/23 Hank Cruz MD Referring Physician Nephrology 02/18/18
--- OUTSIDE RECORDS SUMMARY | 2025-01-18 10:18 | XMS_ITS ---
Author Organization [facility] Address [address] [place] [address] Care Team Providers Care Floor Polisher Name Role Phone Hank Cruz MD Unavailable [phone] Delio Salazar MD Primary Care Provider + [...] 04/01/2024 Assessment & Plan (04/02/2024 10:16 AM TRACKWALKER): This is the reason pt was sent to our hospital. Seen by urology in ED and no further acute evaluation warranted. Likely component of scar tissue related to prior infarction/orchiectomy. This is exacerbated by persistent pressure related to anasarca/ascites. - pt wishes to follow up with a urologist in [place] given distance to [place] - plan home today if able to arrange ride home I have personally spent 40 minutes today including time with the patient, time reviewing data, time discussing with other providers, and time on discharge planning and documentation. Anasarca 04/01/2024 Assessment & Plan (04/02/2024 10:11 AM TRACKWALKER): HD and DUF as tolerated. Pt wishes to return home and go to usual dialysis center - s/p LVP and will need LVP's prn Abdominal pain 03/24/2024 Assessment & Plan (03/24/2024 1:20 PM TRACKWALKER): Suspect baseline given cirrhosis, hernia repair and ongoing umbilical hernia (reducible). Patient had BM 03/24, encouraged to keep this up as outpatient. - ok to discharge with some pain medications Cellulitis of drainage site following surgery Assessment & Plan (03/25/2024 9:57 AM TRACKWALKER): Erythema around FRANK drain, reportedly with purulent [...] 01/23/2024 Assessment & Plan (04/02/2024 10:14 AM TRACKWALKER): TTE (01/21): EF 74%, G2DD, mod calcified mitral valve annulus + severe mitral stenosis, PASP 33mHg Outpatient follow up with Cardiology in [facility] Assessment & Plan (03/22/2024 5:27 PM TRACKWALKER): Noted on TTE 01/2024 - To be [...] discharge, SW/CM updated. 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 TTE 01/22/24: [...] monotherapy. Prasugrel was discontinued by his outpatient charge rn Pulmonary HTN 01/19/2024 Assessment & Plan (03/21/2024 11:03 PM TRACKWALKER): Evaluated by pHTN service at [facility] - felt to be Group 5 (2/2 ESRD) and Group 1 (cirrhosis), though likely also has Group 2/3 component in the context of severe mitral stenosis and pulmonary emphysema. - Per [facility] pHTN group, it is very unlikely the patient is going to be a candidate ofr pulmonary vasodilator therapy - Baseline chronic hypoxemia requiring 3-4 L O2 Assessment & Plan (01/24/2024 9:42 AM CDT): -Follows with OSH ([facility]) Pulmonology --From most recent OSH [...] 01/19/2024 Assessment & Plan (04/02/2024 10:14 AM TRACKWALKER): On home O2 at times though pt states he doesn't actually use it. Outpt f/u with pulmonary in [facility] Assessment & Plan (03/21/2024 11:03 PM TRACKWALKER): Continue incruse ellipta, PRN albuterol Assessment & [...] AM CDT): -01/18 med list updated in [facility] History of pulmonary embolism 01/19/2024 Assessment & Plan (03/21/2024 10:56 PM TRACKWALKER): Unable to find records of PE, but noted RUE DVT 05/10/22 ([facility]). - No longer on anticoagulation Assessment & [...] NGT in place -CT A/P repeated at [facility] on arrival - Large right inguinal [...] monotherapy. Prasugrel was discontinued by his outpatient charge rn Cirrhosis of liver with ascites 01/18/2024 Assessment & Plan (04/02/2024 10:13 AM TRACKWALKER): Follows with GI in [facility]. Per chart review, unclear if has actual [...] evaluation Assessment & Plan (03/23/2024 6:12 PM TRACKWALKER): History of pekcihbxt-ib-yxrgepz ascites. Poor candidate for TIPS based on consult documentation from 01/2024 due concern for pulmonary HTN/right-sided heart disease, ?history of hepatic encephalopathy. Low SAAG on prior ascites studies argues against portal HTN. Has hx SBP. S/p LVP at [facility] on 03/19 with 7L removed. - para (03/23): 118 nucleated cells, 4L off - OSH para (03/19): 154 nucleated cells - Continue lactulose, titrate to 3-5 BM/day Assessment & Plan (01/24/2024 9:44 AM CDT): -Unknown etiology of cirrhosis -Follows with OS ([facility]) Gastroenterology in [place], [place] -Last clinic visit 09/07/23 > referred to [facility] Hepatology for TIPS evaluation, no [facility] documentation -Most recent EGD 11/07/22, negative [...] 01/17 Assessment & Plan (04/02/2024 10:14 AM TRACKWALKER): HD per renal Assessment & Plan (03/24/2024 1:21 PM TRACKWALKER): Anuric, HD TTS via LUE AVF. Received dialysis 03/24 - renal c/s: iHD T//Thu - has chart prescriptions of both phoslo + renvela. Phoslo now, consider renvela if I-nikso high Assessment & Plan (01/23/2024 1:23 PM [...] Hypertension Assessment & Plan (04/02/2024 10:14 AM TRACKWALKER): Home meds; outpt f/u Assessment & Plan (03/23/2024 6:15 PM TRACKWALKER): Patient does not recall the bulk of his medications. Medications reconciled through review of his latest available dialysis center documentation. Favor adjusting at discharge, including limiting hydralazine as able. - Continue amlodipine 10 daily, Coreg 25 BID, hydralazine 100 TID, Imdur 240 daily, minoxidil 2.5 TID (down from 10 TID at last [facility] discharge) - resume losartan 03/24 - [...] Not Asked; Counseling Given: Not Answered [facility] Utilities Answer Date Recorded In the past 12 months has [email or web address], [employer], or water [employer] threatened to shut off services in your home? No 03/25/2024 Social Connection and Isolation Panel Answer Date Recorded In a typical week, how many times do you talk on the phone with family, friends, or neighbors? Once a week 03/25/2024 How often do you get together with friends or re latives? Once a week 03/25/2024 How often do you attend presybeterian or pentecostalism serv ices? Never 03/25/2024 Do you belong to any clubs o r organizations such as presybeterian groups, unions, fraternal or athletic groups, or [...] any time in the past 12 m [facility], were you homeless or living in a group home (including now)? No 03/25/2024 Personal Safety Answer Date Recorded Have you ever been in or are you currently in a harmful physical or emotional relationship or is someone making you feel afraid or unsafe? Denies 04/01/2024 Sex and Gender Information Value Date Recorded Sex Assigned at Not on file Legal Sex Male 7:34 PM TRACKWALKER Gender Identity Not on file Sexual Orientation Not on file Last Filed Vital Signs Vital Sign Reading Time Taken Comments Blood Pressure 159/92 04/02/2024 10:10 AM TRACKWALKER Pulse 71 04/02/2024 10:10 AM TRACKWALKER Temperature 36.3 C (97.3 F) 04/02/2024 10:10 AM TRACKWALKER Respiratory Rate 18 04/02/2024 10:10 AM TRACKWALKER Oxygen Saturation 95% 04/02/2024 10:10 AM TRACKWALKER Inhaled Oxygen Concentration - - Weight 79.8 kg (176 lb) 04/02/2024 5:40 AM TRACKWALKER Height 185.4 cm (6' 1 ) 04/01/2024 6:10 AM TRACKWALKER Body Mass Index 23.22 04/01/2024 6:10 AM TRACKWALKER Results * Serum Hepatitis panel (01/22/2014 4:31 [...]
--- OUTSIDE RECORDS SUMMARY | 2025-01-18 10:18 | XMS_ITS | Encounter Summary ---
Author Organization [facility] Address [address] [place] [address] Phone Care Team Providers Care Network Security Engineer Name Role Phone Hank Cruz MD Unavailable [phone] Mal Junior MD Primary Care Provider [phone] Delio Salazar MD Primary Care Provider + Savanah Villafana DIRECTORY OPERATOR Unavailable [phone] Encounter Details Date Type Department Care Team (Late st Contact Info) Description 08/29/2021 Ophth Exam [facility] Medicine Ophthalmology [address] [place] [phone] Perico Garcia MD PhD [address] [facility] [phone] [place], [place] [id number] Social History Tobacco Use Types Packs/Day Years Used Date Smoking Tobacco: Former Sex and Gender Information Value Date Recorded Sex Assigned at Not on file Legal Sex Male 7:34 PM HR SHARED SERVICES CONSULTANT Gender Identity Not on file Sexual Orientation Not on file documented as of this encounter Plan of Treatment Not on file documented as of this encounter Visit Diagnoses Not on filedocumented in this encounter Additional Health Concerns Infection Onset Date Last Indicated Resolved Time COVID: Suspected 04/01/2024 04/01/2024 04/01/2024 3:05 AM HR SHARED SERVICES CONSULTANT documented as of this encounter Eye Exam [...] Normal Normal Periphery Normal Normal Care Teams Network Security Engineer Relationship Specialty Start Date End Date Mal Junior MD [address] [phone] PCP - General Family Medicine 02/18/18 09/18/23 Delio Salazar MD [address] [place] [address] PCP - General Family Medicine 09/19/23 Hank Cruz MD Referring Physician Nephrology 02/18/18 Savanah Villafana, DIRECTORY OPERATOR [address] ([facility] Mail[address] [phone] [place] [address] [facility] 03/28/24 03/29/24 documented as of this encounter
--- OUTSIDE RECORDS SUMMARY | 2025-01-18 10:19 | XMS_ITS | Clinical Summary ---
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 Name Role Phone Delio Salazar MD [...] 03/05/20 21 Active naloxone (NARCAN) 4 mg/spray [place], Non-Aerosol EMERGENCY USE ONLY: Administer 1 spray [...] Delayed Release (E.C.)Indication s:Coronary artery disease involving huslia coronary artery of huslia heart without angina pectoris Take 1 tablet by mouth once daily 100 Tablet 1 10/19/19 24 Active atorvastatin (LIPITOR) 40 mg tabletIndication s:Coronary artery disease involving huslia coronary artery of huslia heart without angina pectoris take 1 tablet by mouth once daily at bedtime 100 Tablet 1 10/22/19 24 Active carvediloL (COREG) 25 mg tabletIndication s:Essential hypertension,Cor onary artery disease involving huslia coronary artery of huslia heart without angina pectoris TAKE 1 & [...] times daily. 100 Gram 08/19/19 25 Active famotidine (PEPCID) 20 mg tabletIndication s:Gastroesophage [...] Amount: 4 Tablets 100 Tablet 01/25/20 25 025 Active sertraline (ZOLOFT) 25 mg tablet [...] ed(Reorder ) HYDROmorphone (DILAUDID) 4 mg tabletIndication s:ESRD (end stage renal disease) on dialysis (CMS/HCC),Hepati c cirrhosis, unspecified hepatic cirrhosis type, unspecified whether ascites present (CMS/HCC),Scrota l swelling,Palliat swapnil care by specialist Take 1 Tablet (4 mg) by mouth every 6 hours as needed for Pain. 12/16/24-01/13/25 Max Daily Amount: 4 Tablets 112 Tablet 12/17/19 25 025 ipratropium-albu teroL (DUONEB) 0.5 mg-3 [...] 11/22/2022 02/09/2023 Acute blood loss anemia 11/07/2022 10/01/2023 NSTEMI (non-ST elevated myoc ardial infarction) 11/05/2022 [...] Date Type Department Care Team Description 12/30/2024 Refill [facility] Supportive Care [facility] [address] [place] [address] Freddie Cruz Jr., MD Palliative care by specialist; ESRD (end stage renal disease) on dialysis (CMS/HCC); Hepatic cirrhosis, unspecified hepatic cirrhosis type, unspecified whether ascites present (CMS/HCC) 12/29/2024 Refill [facility] Supportive Care [facility] [address] [place] [phone] Freddie Cruz Jr., MD Palliative care by specialist; ESRD (end stage renal disease) on dialysis (CMS/HCC); Hepatic cirrhosis, unspecified hepatic cirrhosis type, unspecified whether ascites present (CMS/HCC) 12/28/2024 External Device Data STL ABSTRACTION Provider, Abstract 12/28/2024 [facility] Spiritual Care [facility] [place] [phone] Macario Perales Cancer (Spiritual care) 12/27/2024 External Device Data STL ABSTRACTION Provider, Abstract 12/26/2024 [facility] Spiritual Care [facility] [place] [phone] Macario Perales Spiritual Distress (Spiritual care) 12/23/2024 [facility] Spiritual Care [address] [place] [phone] Reva Mtz Referral (Palliative Care Spiritual Assessment) 12/21/2024 3:30 PM CDT Office Visit [facility] Vascular Surgery [place] [address] [place] [address] Dre Gonzalez MD ESRD (end stage renal disease) (CMS/HCC) (Primary Dx) 12/21/2024 2:20 PM CDT Office Visit [facility] [address] [place] [address] Brittani Mcdonnell NP Mitral valve stenosis, unspecified etiology (Primary Dx); ASHD (arteriosclerotic heart disease); NSTEMI (non-ST elevated myocardial infarction) ([facility]/HCC); S/P drug eluting coronary stent placement; ESRD on hemodialysis ([facility]/HCC); Severe pulmonary hypertension ([facility]/HCC); Cirrhosis of liver without ascites, unspecified hepatic cirrhosis type ([facility]/HCC); Nonrheumatic tricuspid valve regurgitation 12/21/2024 11:45 AM CDT Office Visit [facility] Supportive Care [facility] [address] [place] [address] Emerita Urban ANP Palliative care by specialist (Primary Dx); Essential hypertension; Coronary artery disease involving huslia coronary artery of huslia heart without angina pectoris; Chronic obstructive pulmonary disease, unspecified COPD type ([facility]/HCC); Gastroesophageal reflux disease without esophagitis; Cirrhosis of liver with ascites, unspecified hepatic cirrhosis type ([facility]/HCC); ESRD (end stage renal disease) on dialysis ([facility]/HCC); Recurrent major depressive disorder, in partial remission; Depression screen; Other specified counseling; Chronic diastolic heart failure (CMS/HCC) 12/21/2024 Refill [facility] Supportive Care [facility] [address] [place] [address] Emerita Urban ANP Palliative care by specialist (Primary Dx); ESRD (end stage renal disease) on dialysis (CMS/HCC); Hepatic cirrhosis, unspecified hepatic cirrhosis type, unspecified whether ascites present (CMS/HCC) 12/19/2024 [facility] [address] [phone] Mal Junior MD Essential hypertension 12/19/2024 Telephone [facility] Vascular Surgery [address] [phone] Lily Luna MD Needs Appointment 12/09/2024 1:30 PM CDT Office Visit [facility] Vascular Surgery [address] [phone] Lily Luna MD ESRD (end stage renal disease) (CMS/HCC) (Primary Dx); Pseudoaneurysm of arteriovenous dialysis fistula, initial encounter 12/09/2024 [facility] [address] [phone] Mal Junior MD Essential hypertension 12/07/2024 Orders Only [facility] Gastroenterology- [address] [place] [phone] Jason Perera MD Cirrhosis of liver with ascites, unspecified hepatic cirrhosis type (CMS/HCC) (Primary Dx) 11/29/2024 Telephone [facility] Vascular [address] [phone] Lily Luna MD Appointment Notification 11/25/2024 2:49 PM CDT - 11/25/2024 8:14 PM CDT Emergency [facility] Emergency Department [address] [place] [phone] Vernon Young DO Roberts, Jacob A, DO Dependence on renal dialysis (Primary Dx); Problem with dialysis access, initial encounter Discharge Disposition: Home or Self Care 11/25/2024 Travel 11/23/2024 Telephone [facility] Vascular Surgery [address] [phone] Dre Gonzalez MD Needs Appointment 11/04/2024 5:28 AM CDT - 11/04/2024 7:55 AM CDT Emergency [facility] Emergency Medicine [address] [place] [phone] Evan Taylor MD Pneumonia of right lower lobe due to infectious organism (Primary Dx); Chronic pulmonary edema; Hyperkalemia Discharge Disposition: Home or Self Care 10/30/2024 4:15 PM CDT - 10/30/2024 11:59 PM CDT Hospital Encounter [facility] Emergency Medical Services [place] [address] [place] [phone] [facility] Discharge Disposition: [facility] 10/28/2024 1:00 PM CDT Clinical Support [facility] Care [facility] [address] [place] [address] Saskia Slaughter MSW Other specified counseling (Primary Dx) 10/21/2024 2:00 PM CDT Video Visit [facility] Care [facility] [address] [place] [address] Freddie Cruz Jr., MD Scrotal swelling (Primary Dx); ESRD (end stage renal disease) on dialysis (CMS/HCC); Hepatic cirrhosis, unspecified hepatic cirrhosis type, unspecified whether ascites present (CMS/HCC); Palliative care by specialist from Last 3 Months Immunizations Immunization Administration Dates Next Due (ADACEL/BOOSTRIX)(10 YR UP) TDAP VACCINE, 0.5ML, IM 03/11/2017,07/15/2016,09/10/2015 (PFIZER)(12 YR UP) COVID-19 VACCINE - EMERGENCY USE AUTHORIZATION, MRNA, [id number]) 30 MCG/0.3 ML IM SUSP 12/29/2020,11/28/2020 (PNEUMOVAX [...] worry about transportation for future doctor visits, black pickler medication, etc.? 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 [place] [address] Jason Perera MD [address] [place] [address] 06/28/2025 2:00 PM STRATEGIC ACCOUNT EXECUTIVE Office Visit [facility] [address] [facility] [address] [place] [phone] Gilberto Hurtado MD [address] [facility] [address] [place] [address] Health Maintenance Due Date Last [...] history exists Medical Devices Implanted Type Area Slot Editor Device Identifier Shelf Expiration Date Model / Serial / Lot Cath Dyls Glidepath 23cm [id number] Implanted:Qty : 1 on 07/26/2018 by Miguel Monzon MD Catheter Right: Chest CR BARD- [employer]IN[employer] 08/02/2019 [id number] / / [id number] Cath Dialysis Glidepath 14.5fr 24cm [facility] [id number] - [id number] Implanted:Qty : 1 on 11/25/2024 by Fransico Frey MD at [facility] Catheter Right: Chest Wall BARD AMINAH VASC [id number] 04/02/2026 [id number] / / [id number] Clip Ligating Horizon Red [id number] - [facility] - [id number] Implanted:Qty : 1 on 07/08/2024 by Dre Gonzalez MD at [facility] Clip Left: Arm [employer] [id number] 03/26/2029 [id number] / / [id number] Clip Ligating Horizon Med Ti [id number] - Csc - [id number] Implanted:Qty : 1 on 07/08/2024 by Dre Gonzalez MD at [facility] Clip Left: Arm TELE[employer]LEX- WECK CLOSURE SYS [id number] 02/08/2029 [id number] / / [id number] Dev Closure Angioseal 6fr Vip [id number] - [id number] Implanted:Qty : 1 on 11/06/2022 by Betty Day MD at [facility] Closure Device Right: Groin [facility] 05/03/2023 [id number] / / [id number] Dev Vasc Closure Vascade 6-7fr [id number] - [id number] Implanted:Qty : 1 on 11/06/2022 at [facility] Closure Device Right: Groin [employer] 12/27/2023 [id number] / / [id number] Agent Hemostat Surgicel 3x4in 1943s - [id number] Implanted:Qty : 1 on 07/08/2024 by Dre Gonzalez MD at [facility] Hemostatic Left: Arm [employer] 03/03/2029 [id number] / / [id number] Stent Synergy Xd 3.5x24mm Evrlms Elut [id number] - [id number] Implanted:Qty : 1 on 11/06/2022 by Betty Day MD at [facility] Stent Right: Coronary [employer] 06/09/2024 [id number] / / [id number] Procedures Procedure Name Priority Date/Time Associated Diagnosis [...] to the venous access site. The 14.5 [place], 19 cm (tip to cuff), dual-lumen dialysis [...] peel-away inner dilator were removed. The 14.5 [place] dialysis catheter was advanced through the peel-away [...] to the venous access site. The 14.5 [place], 19 cm (tip to cuff), dual-lumen dialysis [...] peel-away inner dilator were removed. The 14.5 [place] dialysis catheter was advanced through the peel-away [...] - 11.0 K/uL 11/25/2024 3:[address] PM [address] [facility] RBC 3.54(L) 4.60 - 6.20 M/uL 11/25/2024 3:[address] [facility] HEMOGLOBIN 9.6(L) 14.0 - 18.0 g/dL 11/25/2024 3:[address] [facility] HEMATOCRIT 31.0(L) 41.0 - 53.0 % 11/25/2024 3:[address] [facility] MCV 87.6 84.0 - 103.0 fL 11/25/2024 3:[address] [facility] MCH 27.1 27.0 - 34.0 pg 11/25/2024 3:24 PM [facility] MCHC 31.0 30.0 - 35.0 g/dL 11/25/2024 3:24 PM [facility] PLATELETS 178 140 - 440 K/uL 11/25/2024 3:24 PM [facility] MPV 10.2 8.9 - 12.8 fL 11/25/2024 3:24 PM [facility] RDW 18.5(H) 11.0 - 14.5 % 11/25/2024 3:24 PM [facility] RDW-STDEV 59.3(H) 37.0 - 54.0 fL 11/25/2024 3:24 PM [facility] NEUTROPHILS 54 42 - 75 % 11/25/2024 3:24 PM [facility] LYMPHOCYTES 18(L) 24 - 44 % 11/25/2024 3:24 PM [facility] MONOCYTES 13(H) 2 - 10 % 11/25/2024 3:24 PM [facility] EOSINOPHILS 15(H) 0 - 7 % 11/25/2024 3:24 PM [facility] BASOPHILS 1 0 - 1 % 11/25/2024 3:24 PM [facility] IMMATURE GRANULOCYTES 0 0 - 2 % 11/25/2024 3:24 PM [facility] NEUTROPHIL ABSOLUTE 1.78(L) 2.00 - 8.00 K/uL 11/25/2024 3:24 PM [facility] LYMPHOCYTE ABSOLUTE 0.58(L) 1.20 - 4.00 K/uL 11/25/2024 3:24 PM [facility] MONOCYTE ABSOLUTE 0.43 0.10 - 0.60 K/uL 11/25/2024 3:24 PM [facility] EOSINOPHIL ABSOLUTE 0.48 0.00 - 0.70 K/uL 11/25/2024 3:24 PM [facility] BASOPHILS ABSOLUTE 0.04 0.00 - 0.20 K/uL 11/25/2024 3:24 PM CDT [facility] IMMATURE GRANULOCYTES ABSOLUTE 0.01 0.00 - 0.10 K/uL 11/25/2024 3:24 PM CDT [facility] SMEAR REVIEWED: NA - Not Applicable 11/25/2024 3:24 PM CDT [facility] Blood Venipuncture / Unknown 11/25/2024 3:08 PM CDT 11/25/2024 3:12 PM CDT us Vernon Young DO HEMATOLOGY ORDERABLES Final Result [facility] CLIA # [id number] [address] [place] [id number] * (ABNORMAL) COMPREHENSIVE METABOLIC PANEL (11/25/2024 3:08 PM CDT) SODIUM 132(L) 136 - 145 mmol/L 11/25/2024 3:59 PM CDT [facility] POTASSIUM 4.6 3.5 - 5.1 mmol/L 11/25/2024 3:59 PM CDT [facility] CHLORIDE 98 98 - 107 mmol/L 11/25/2024 3:59 PM CDT [facility] CO2 23 22 - 29 mmol/L 11/25/2024 3:59 PM CDT [facility] CALCIUM 10.5(H) 8.6 - 10.0 mg/dL 11/25/2024 3:59 PM CDT [facility] BUN 19 6 - 20 mg/dL 11/25/2024 3:59 PM CDT [facility] CREATININE 4.80(H) 0.67 - 1.17 mg/dL 11/25/2024 3:59 PM CDT [facility] GLUCOSE 90 74 - 99 mg/dL 11/25/2024 3:59 PM CDT [facility] TOTAL PROTEIN 7.2 6.4 - 8.3 g/dL 11/25/2024 3:59 PM CDT [facility] ALBUMIN 2.7(L) 3.5 - 5.2 g/dL 11/25/2024 3:59 PM CDT [facility] BILIRUBIN TOTAL 0.4 0.0 - 1.0 mg/dL 11/25/2024 3:59 PM CDT [facility] ALKALINE PHOSPHATASE 121 40 - 129 U/L 11/25/2024 3:59 PM CDT [facility] AST 11 10 - 50 U/L 11/25/2024 3:59 PM CDT [facility] ALT <5 <=50 U/L 11/25/2024 3:59 PM T [facility] GFR 15(L) >=60 mL/min/1. 73 sq meter 11/25/2024 3:59 PM T [facility] Comment:eGFR calculated with 2020 CKD-EPI equation. Vegetarian diet, extremely high or low muscle mass, and may affect results. Cystatin C with Glomerular Filtration Rate is a suitable alternative for these patients. ANION GAP 11 9 - 20 mmol/L 11/25/2024 3:59 PM T [facility] Blood Venipuncture / Unknown 11/25/2024 3:08 PM CDT 11/25/2024 3:12 PM CDT us Vernon Young DO CHEMISTRY ORDERABLES Final Result [facility] CLIA # [id number] [address] [place] [id number] * COVID-19 ANTIGEN (11/04/2024 6:01 AM CDT) Pathologist [facility] COVID-19 ANTIGEN Presumptive Negative Presumptive Negative 11/04/2024 6:28 AM CDT [facility] Upper Respiratory ANTERIOR NARES SWAB / Unknown Collection / Unknown 11/04/2024 6:01 AM CDT 11/04/2024 6:05 AM CDT Narrative [facility] - 11/04/2024 6:28 AM CDT Erma SARS antigen test has been authorized by FDA under an emergency use authorization (EUA) and has been authorized only for the detection of proteins from SARS-CoV-2 and influenza, not for any other viruses or pathogens. Erma SARS Antigen PHILLIP is intended for the simultaneous qualitative detection and differentiation of nucleocapsid protein antigen from SARS-CoV-2 directly from nasopharyngeal (DOCK PUMPER) and nasal (NS) swab specimens collected from [...] MICROBIOLOGY - GENERAL O RDERABLES Final Result [facility] CLIA # [id number] [address] [place] [id number] * INFLUENZA VIRUS A AND B, ANTIGEN DETECTION (11/04/2024 6:01 AM CDT) [facility] INFLUENZA A AG NOT DETECTED Not Detected 11/04/2024 6:28 AM CDT [facility] INFLUENZA B AG NOT DETECTED Not Detected 11/04/2024 6:28 AM [facility] Upper Respiratory ENTIRE NASOPHARYNX / Unknown Collection / Unknown 11/04/2024 6:01 AM CDT 11/04/2024 6:05 AM CDT Narrative [facility] - 11/04/2024 6:28 AM CDT Negative results do not rule out infection. If clinically indicated, consider PCR testing which is more sensitive than antigen testing. If PCR testing is desired, consult with your local laboratory as sample recollection may be required. us Evan Taylor MD MICROBIOLOGY - GENERAL O RDERABLES Final Result [facility] CLIA # [id number] [address] [place] [id number] * (ABNORMAL) BASIC METABOLIC PANEL (11/04/2024 6:01 AM CDT) SODIUM 132(L) 136 - 145 mmol/L 11/04/2024 6:24 AM [facility] POTASSIUM 6.0(H) 3.5 - 5.1 mmol/L 11/04/2024 6:24 AM [facility] Comment:Moderate hemolysis p resent. Can cause significant falsely elevated result. Redraw if indicated. CHLORIDE 98 98 - 107 mmol/L 11/04/2024 6:24 AM [facility] CO2 28 22 - 29 mmol/L 11/04/2024 6:24 AM [facility] CALCIUM 10.1(H) 8.6 - 10.0 mg/dL 11/04/2024 6:24 AM [facility] BUN 17 6 - 20 mg/dL 11/04/2024 6:24 AM [facility] CREATININE 3.59(H) 0.67 - 1.17 mg/dL 11/04/2024 6:24 AM [facility] GLUCOSE 91 74 - 99 mg/dL 11/04/2024 6:24 AM [facility] GFR 21(L) >=60 mL/min/1.7 3 sq meter 11/04/2024 6:24 AM CDT [facility] Comment:eGFR calculated with 2020 CKD-EPI equation. Vegetarian diet, extremely high or low muscle mass, and may affect results. Cystatin C with Glomerular Filtration Rate is a suitable alternative for these patients. ANION GAP 6 5 - 20 mmol/L 11/04/2024 6:24 AM CDT [facility] Blood BLOOD SPECIMEN / Unknown Venipuncture / Unknown 11/04/2024 6:01 AM CDT 11/04/2024 6:05 AM CDT us Evan Taylor MD CHEMISTRY ORDERABLES Fin al Result [facility] CLIA # [id number] [address] [place] [id number] * XR CHEST PA OR AP 1 [...] D RX INFOCROSSING Medicaid WORKERS COMP MEDICAID [place] Advance Directives For more information, please contact: [phone] * Full Code (Latest Code Status on [...] 4:49 PM 05/06/2024 4:08 PM Care Teams Multiple Cut Off Saw Operator Relationship Specialty Start Date End Date Delio Salazar MD [address] [place] [phone] PCP - General Family Practice 01/30/24
[2025-01-18 10:21] VITALS: BP 117/64; PULSE 62; TEMP 36.7; O2SAT 94
[2025-01-18 11:56] VITALS: BP 124/76; PULSE 57; RESP 16; O2SAT 100
[2025-01-18 12:09] LABS: Hematocrit 32.1 % (37-53); Hemoglobin 9.90 g/dL (11.27-16.99); Mean Corpuscular HGB Conc 30.8 g/dL (30-55); Mean Corpuscular Hemoglobin 26.5 pg (27-33); Mean Corpuscular Volume 86.1 fl (82-101); Nucleated Red Blood Cells % 0 %; Platelet Count 173 10^3/cmm (157-399); Red Blood Count 3.73 10^6/uL (3.85-5.65); White Blood Count 3.91 10^3/uL (3.29-11.43)
[2025-01-18 12:26] LABS: INR 1.33 (0.8-1.2); Prothrombin Time 17.40 SECONDS (12.1-14.9)
[2025-01-18 12:29] LABS: Alanine Aminotransferase < 5 U/L (0-41); Albumin Level 2.5 g/dL (3.5-5.2); Alkaline Phosphatase 127 U/L (40-130); Anion Gap 13.1 (5-19); Aspartate Amino Transferase 13 U/L (0-40); Blood Urea Nitrogen 21 mg/dL (6-20); Calcium 10.1 mg/dL (8.5-10.5); Carbon Dioxide 24 mmol/L (22-29); Chloride 98 mmol/L (98-107); Creatinine Clr Calc Pharmacy 21.8637; Globulin 4.3 g/dL (1.3-4.6); Glucose 53 mg/dL (65-115); Osmolality Calculated 272 mOsm/kg (285-295); Potassium 4.1 mmol/L (3.5-5.1); Sodium 131 mmol/L (136-145); Total Protein 6.8 g/dL (6.6-8.7)
[2025-01-18 12:31] VITALS: BP 104/72; PULSE 57; RESP 16; O2SAT 97
--- NOTE | 2025-01-18 12:48 | W.ED.MALEGU ---
HPI - Male Genitourinary General: Chief complaint: Urogenital-Male Stated complaint: Private is Swollen twisted purple and green Time Seen by Provider: 01/18/25 11:47 History of Present Illness: 44-year-old male presents emergency room complaining of swelling to scrotum and penis. He has some skin breakdown around the rush of the penis. He has chronically had swelling in his scrotum. He has end-stage renal disease and anasarca related to his end-stage renal disease. He denies any fever sweats or chills. He does not make any urine anymore at this point. Associated symptoms: Deny dysuria Related Data Home Medications ?Medication ?Instructions ?Recorded ?Confirmed ferric citrate 210 mg iron tablet 630 mg PO TID 11/03/21 01/12/25 (Auryxia) aspirin 81 mg tablet,delayed 81 mg PO BEDTIME 02/21/22 01/12/25 release vit B,C-folic ac 800 mcg-zinc 12.5 1 tab PO QAM 10/01/22 01/12/25 mg-selen-D3 2,000 unit-vit E tablet (RenaPlex-D) carvedilol 25 mg tablet 50 mg PO Q12H 01/09/23 01/12/25 minoxidil 2.5 mg tablet 10 mg PO TID 05/16/24 01/12/25 sevelamer carbonate 800 mg tablet 1,600 mg PO TID 05/16/24 01/12/25 albuterol sulfate 90 mcg/actuation 1 puff inhalation Q6H PRN 09/19/24 01/12/25 aerosol inhaler Shortness Of Breath umeclidinium 62.5 mcg/actuation 1 inh inhalation DAILY 09/19/24 01/12/25 blister powder for inhalation (Incruse Ellipta) hydromorphone 4 mg tablet 4 mg PO Q6H PRN Pain 10/31/24 01/12/25 Previous Rx's ?Medication ?Instructions ?Recorded clindamycin HCl 300 mg capsule 300 mg PO Q6H 10 days #40 caps 01/14/25 (Cleocin HCl) mupirocin 2 % topical ointment 1 applic topical BID #22 grams 01/18/25 (Centany) Allergies Allergy/AdvReac Type Severity Reaction Status Date / Time spironolactone Allergy Intermediate facial Verified 01/18/25 10:28 swelling nifedipine Allergy Unknown ALGY-Swell Verified 01/18/25 10:28 Lip/Tongue/Throat haloperidol (From Haldol) Allergy ADR-Irritab Verified 01/18/25 10:28 le ketorolac Allergy Unknown Verified 01/18/25 10:28 lisinopril Allergy ADR-Swelling Verified 01/18/25 10:28 of the Eye Review of Systems Const: Denies: fever(s) or chills Card: Reports: edema and swelling of feet/ankles; Denies: chest pain Resp: Denies: dyspnea GI: Denies: abdominal pain : Denies: dysuria, urinary frequency or urinary urgency Musc: Denies: neck pain or back pain Skin/Breast: Denies: rash PFSH ED PFSH: Medical History Abdominal ascites history of intermittent paracentesis, transudative fluid; prior work up has included negative biopsy, ceruloplasmin level normal, low iron, high ferritin, normal TIBC, negative HIV, hepatitis panel negative, JESÚS/SCL 70/double-stranded DNA antibodies negative, Alpha-fetoprotein level unremarkable, nonalcoholic by history, has hepatomegaly and splenomegaly Cirrhosis of liver Epididymitis 06/2022 Dyslipidemia History of home oxygen therapy COPD (chronic obstructive pulmonary disease) Patient under care of multiple providers Umbilical hernia Atherosclerosis of coronary artery Stent and balloon angioplasty to proximal 1 OM branch Congestive heart failure preserved ejection fraction History of cardiovascular stress test 07/2022 at [facility] perfusion imaging probably normal, no reversible defects, small fixed defect in apical anterior wall, EF 54%, nonischemic response to stress by EKG criteria Depression Pulmonary hypertension Uses bilevel positive airway pressure (BPAP) ventilation at home History of coronary angiogram 11/2021 - patent stent Inguinal hernia Chronic respiratory failure on home oxygen and bipap Nicotine dependence, cigarettes, with other nicotine-induced disorders Generalized anxiety disorder with panic attacks ESRD on dialysis Chronic abdominal pain COVID 05/25 Hypertensive emergency recurrent episodes Urethral stricture Pulmonary embolism 09/21 CTA inconclusive for very tiny peripheral LEFT lower lobe pulmonary artery sub segmental emboli versus poor opacification. Anemia chronic kidney disease Arteriovenous fistula for hemodialysis in place, secondary Degenerative disc disease, lumbar Hypertension uncontrolled Surgical History History of arteriovenous graft left upper extremity fistula, revision 07/2024 in [place] Stented coronary artery H/O hand surgery Amputation right 2&3 fingers 2017 History of adenoidectomy Family History Other Hypertension Social History Smoking and tobacco/nicotine status: current every day tobacco/nicotine user cigarettes Years cigarettes smoked: 21 [ Other cigarette details: started age 20, currently 0.5ppd ] Quit status (tobacco/nicotine): considering quitting Alcohol intake: never Substance/Drug Use: never Additional social history: Lives with his mother his sister and one of his kids. Patient wants full CODE STATUS as discussed on 10/31/2024 Household members: family Number of children: 3 Current occupational status: disabled Do you think of yourself as: Straight/Heterosexual Physical Exam Const: GENERAL APPEARANCE: cooperative ORIENTATION/CONSCIOUSNESS: Yes awake, Yes oriented to person, Yes oriented to place and Yes oriented to time HENMT: COMMON NORMALS: normocephalic, atraumatic and hearing grossly normal bilaterally HEAD & SCALP: normocephalic and atraumatic Resp: COMMON NORMALS: normal respiratory effort, No retractions, No use of accessory muscles and clear to auscultation bilaterally AUSCULTATION: clear to auscultation bilaterally Cardio: COMMON NORMALS: regular rate, regular rhythm and No murmurs present (Cardio) RATE: regular rate RHYTHM: regular rhythm GI: COMMON NORMALS: Soft to palpation and No hepatosplenomegaly present AUSCULTATION: Yes normoactive bowel sounds PALPATION: Yes Soft to palpation, No Tenderness to palpation present (GI), No Guarding due to palpation present (GI) and Yes No hepatosplenomegaly present : OTHER: Significant edema to the scrotum and penis rush has a little bit of skin breakdown under the edge at the 9 o'clock position. There is no redness no induration no signs of cellulitis. Extremity: NARRATIVE EXTREMITY EXAM: 3+ edema to lower extremities extending to the buttocks and to the lower abdomen Neuro: SENSORIUM/ORIENTATION: Yes oriented to person, Yes oriented to place and Yes oriented to time Skin: COMMON NORMALS: no rashes or lesions noted GENERAL SKIN EXAM: no rashes or lesions noted Course Vital Signs: Vital signs: Vital Signs Temperature 98.1 F 01/18/25 10:21 Pulse Rate 58 L 01/18/25 13:42 Respiratory Rate 16 01/18/25 12:31 Blood Pressure 113/66 01/18/25 13:42 Pulse Oximetry 95 01/18/25 13:42 Oxygen Delivery Me thod Room Air 01/18/25 12:31 MDM - Male Medical Decision Making Apply mupirocin to the skin breakdown areas. White count was normal. Believe he needs more fluid taken off by dialysis. We have contacted [facility] made arrangements for him to have a short run today they are contemplating doing a extra run on Thursday as well normally he is to stay Thursday. He will have regular round of dialysis tomorrow. Medical Records I reviewed the patient's medical records. Lab Data I reviewed the patient's lab results. 01/18/25 12:02 01/18/25 12:02 Laboratory Results WBC 3.91 10^3/uL (3.29-11.43) 01/18/25 12:02 RBC 3.73 10^6/uL (3.85-5.65) L 01/18/25 12:02 Hgb 9.90 g/dL (11.27-16.99) L 01/18/25 12:02 Hct 32.1 % (37-53) L 01/18/25 12:02 MCV 86.1 fl (82-101) 01/18/25 12:02 MCH 26.5 pg (27-33) L 01/18/25 12:02 MCHC 30.8 g/dL (30-55) 01/18/25 12:02 RDW 18.1 % (12.1-15.1) H 01/18/25 12:02 Plt Count 173 10^3/cmm (157-399) 01/18/25 12:02 MPV 9.6 fL (7.4-10.4) 01/18/25 12:02 Neut % (Auto) 66.5 % 01/18/25 12:02 Lymph % (Auto) 14.1 % 01/18/25 12:02 [place] % (Auto) 10.7 % 01/18/25 12:02 Eos % (Auto) 6.6 % 01/18/25 12:02 Baso % (Auto) 1.8 % 01/18/25 12:02 Neut # (Auto) 2.60 10^3/uL (1.8-7.7) 01/18/25 12:02 Lymph # (Auto) 0.6 10^3/uL (0.8-4.8) L 01/18/25 12:02 [place] # (Auto) 0.4 10^3/uL (0.2-0.9) 01/18/25 12:02 Eos # (Auto) 0.3 10^3/uL (0.0-0.8) 01/18/25 12:02 Baso # (Auto) 0.1 10^3/uL (0.0-0.1) 01/18/25 12:02 Nucleated RBC % (auto) 0 % 01/18/25 12:02 Nucleated RBCs # 0.0 /100WBC 01/18/25 12:02 PT 17.40 SECONDS (12.1-14.9) H 01/18/25 12:02 INR 1.33 (0.8-1.2) H 01/18/25 12:02 Sodium 131 mmol/L (136-145) L 01/18/25 12:02 Potassium 4.1 mmol/L (3.5-5.1) 01/18/25 12:02 Chloride 98 mmol/L (98-107) 01/18/25 12:02 Carbon Dioxide 24 mmol/L (22-29) 01/18/25 12:02 Anion Gap 13.1 (5-19) 01/18/25 12:02 BUN 21 mg/dL (6-20) H 01/18/25 12:02 Creatinine 5.3 mg/dL (0.7-1.2) H 01/18/25 12:02 GFR Calculation 12.0 mL/min (90-130) L 01/18/25 12:02 Glucose 53 mg/dL (65-115) L 01/18/25 12:02 Calculated Osmolality 272 mOsm/kg (285-295) L 01/18/25 12:02 Calcium 10.1 mg/dL (8.5-10.5) 01/18/25 12:02 Total Bilirubin 0.4 mg/dL (0.15-1.2) 01/18/25 12:02 AST 13 U/L (0-40) 01/18/25 12:02 ALT < 5 U/L (0-41) 01/18/25 12:02 Alkaline Phosphatase 127 U/L (40-130) 01/18/25 12:02 Total Protein 6.8 g/dL (6.6-8.7) 01/18/25 12:02 Albumin 2.5 g/dL (3.5-5.2) L 01/18/25 12:02 Globulin 4.3 g/dL (1.3-4.6) 01/18/25 12:02 No radiology studies performed this visit Discharge Plan Discharge Patient Disposition: Home Clinical Impression: End stage renal disease on dialysis, Anasarca associated with disorder of kidney Condition: Stable Prescriptions: New mupirocin [Centany] 2 % ointment 1 applic topical BID Qty: 22 0RF No Action ferric citrate [Auryxia] 210 mg iron Tablet 630 mg PO TID aspirin 81 mg tablet,delayed release (DR/EC) 81 mg PO BEDTIME RenaPlex-D 800 mcg-12.5 mg -2,000 unit tablet 1 tab PO QAM carvedilol 25 mg tablet 50 mg PO Q12H minoxidil 2.5 mg tablet 10 mg PO TID sevelamer carbonate 800 mg tablet 1,600 mg PO TID albuterol sulfate 90 mcg/actuation HFA aerosol inhaler 1 puff INHALATION Q6H PRN (Reason: Shortness Of Breath) Incruse Ellipta 62.5 mcg/actuation blister with device 1 inh INHALATION DAILY hydromorphone 4 mg tablet 4 mg PO Q6H PRN (Reason: Pain) clindamycin HCl [Cleocin HCl] 300 mg capsule 300 mg PO Q6H 10 Days Qty: 40 0RF Discharge Orders: Discharge ED (Routine); Ordered 01/18/25 Ordered By: Pato Rivera Referrals: Delio Salazar MD [Primary Care Provider, Family Practice] Discharge Diet: Usual diet Discharge Activity: Resume usual activity Patient Instructions: Opioid Safety, Pain Management, Patient Portal & Elizabeth Instructions Activity Restrictions/Additional Instructions: Thank you for choosing [facility] for your healthcare needs today. It is very important that you follow up as instructed or that you return to the Emergency Department should you have concerns or if your condition changes or worsens in any way. Emergency department visits are focused on emergent conditions, in some cases you may require further evaluation on an outpatient basis. You are seen in the emergency room with swelling of the scrotum and penis. The swelling in the penis is more than what you had previously described having had there is a little bit of skin breakdown around the rush of the penis apply topical antibiotic ointment to this area. Will discharge you home apply topical antibiotic ointment to the end of the penis twice a day. You should have an extra run of dialysis this week to decrease the amount of fluid your body is retaining. (Please note that included in your discharge packet is information concerning opioid safety and pain management. This information is given to all patients were discharged from the ER regardless of their discharge diagnosis or the medicines they usually take or are prescribed.) Print Language: Guatemalan Coding Level of Care Code ED Backhaul Driver for Cristi Diane
[2025-01-18] MEDS: morphine 4 mg/mL SDV 1 mL 2 MG IVP (13:37)
[2025-01-18] MEDS: mupirocin oint 22 gm 1 APPLIC TOPICAL (13:37)
[2025-01-18 13:42] VITALS: BP 113/66; PULSE 58; O2SAT 95
== END 2025-01-18 13:43 | disposition home or self-care (01) ==
PROVIDERS: Emergency Provider Family Medicine; PCP Family Medicine
DX: N04.9 Nephrotic syndrome with unspecified morphologic changes (principal); N18.6 End stage renal disease; Z99.2 Dependence on renal dialysis; J44.9 Chronic obstructive pulmonary disease, unspecified; I25.10 Atherosclerotic heart disease of native coronary artery without angina pectoris; E78.5 Hyperlipidemia, unspecified; I13.2 Hypertensive heart and chronic kidney disease with heart failure and with stage 5 chronic kidney disease, or end stage renal disease; I50.30 Unspecified diastolic (congestive) heart failure; F17.210 Nicotine dependence, cigarettes, uncomplicated; Z79.82 Long term (current) use of aspirin
CPT/HCPCS: 36415; 80053; 85025; 85610; 96374; 99284; J2270; J9999

== ENCOUNTER 2025-01-23 11:06 | Day surgery (SDC) | payer OTHER, MEDICAID, SELFPAY ==
--- NOTE | 2025-01-23 11:21 | US_ITS ---
WS: [id number] ULTRASOUND-GUIDED THERAPEUTIC AND DIAGNOSTIC PARACENTESIS Procedure, risks, and complications have been explained to the patient. Consent is obtained. Utilizing aseptic technique and 1% buffered lidocaine, a small dermatome was made through which a 5 [place] Yueh catheter was inserted. Approximately 6950 ml of clear peritoneal fluid was obtained without difficulty. No complications encountered. US/US paracentesis abd w [id number] IMPRESSION: Uncomplicated paracentesis yielding 6950 ml of peritoneal fluid.
[2025-01-23 11:32] VITALS: BP 134/77; PULSE 55; RESP 16; TEMP 36.6; O2SAT 98; BMI 27.7
[2025-01-23] MEDS: albumin 50 G/200 ML BAG 60 G IV (13:10)
[2025-01-23 13:24] LABS: Cyto Order Verification Order Verified; Mononuclear #, Pertinoneal Fl 0.096 10^3/uL; Mononuclear %, Pertinoneal Fl 83.500 %; Polynuclear # Cells, Perit 0.019 10^3/uL; Polynuclear % Cells,Perit 16.500 %; RBC Pertioneal Fluid 11 10^3/uL; WBC Peritoneal Fluid 115 /uL
[2025-01-23 13:32] LABS: Appearance, Peritoneal Fluid Cloudy (Clear)
[2025-01-23 13:33] LABS: Pathology Referral Yes
[2025-01-23 13:34] LABS: Color, Peritoneal Fluid Yellow (Pale Yellow)
[2025-01-23 13:52] LABS: Albumin Peritoneal Fluid 1.4 g/dL
== END 2025-01-23 13:34 | disposition home or self-care (01) ==
LOC: GILAB 11:07
PROVIDERS: Radiology Diagnostic Radiology; PCP Family Medicine; Visit Provider Internal Medicine
PROC: (CPT 49082; principal; 2025-01-23 12:30)
DX: K74.60 Unspecified cirrhosis of liver (principal)
CPT/HCPCS: 49083; 80503; 82042; 84157; 87070; 87075; 87205; 88112; 89050; 96365; P9046

== ENCOUNTER 2025-02-20 11:45 | Emergency (ER) | payer OTHER, MEDICAID, SELFPAY ==
--- OUTSIDE RECORDS SUMMARY | 2025-02-14 13:15 | XMS_ITS | Encounter Summary ---
Author Organization [facility] Address [address] [place] [address] Care Team Providers Care Phy Therapist Name Role Phone Delio Salazar MD Primary Care Provider + Reason for Visit * Reason Comments COPD Encounter Details Date Type Department Care Team (Late st Contact Info) Description 02/14/2025 1:15 PM CDT Office Visit [facility] [address] [place] [phone] Gayathri Stubbs MD [address] [place] [address] Situational mixed anxiety and depressive disorder (Primary Dx); Palliative care by specialist; ESRD (end stage renal disease) on dialysis (CMS/HCC); Hepatic cirrhosis, unspecified hepatic cirrhosis type, unspecified whether ascites present Social History Tobacco Use Types Packs/Day Years Used Date Smoking Tobacco: Every Day Cigarettes 0.8 1.8 Started: 2023 Smokeless Tobacco: Never Comments:Quit smokin [...] worry about transportation for future doctor visits, worm picker medication, etc.? 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 Gender Identity Not on file Sexual Orientation Not on file documented as of this encounter Last Filed Vital Signs Vital Sign Reading Time Taken Comments Blood Pressure 168/82 02/14/2025 1:37 PM CDT Pulse 65 02/14/2025 1:37 PM CDT Temperature 37 C (98.6 F) 02/14/2025 1:37 PM CDT Respiratory Rate - - Oxygen Saturation 94% 02/14/2025 1:37 PM CDT Inhaled Oxygen Concentration - - Weight 117 kg (258 lb) 02/14/2025 1:37 PM CDT Height 185.4 cm (6' 1 ) 02/14/2025 1:37 PM CDT Body Mass Index 34.04 02/14/2025 1:37 PM CDT documented in this encounter Miscellaneous Notes * Patient Instructions - Gayathri Stubbs MD - 02/14/2025 2:01 PM CDT Continue hydromorphone 4mg as needed, limit 3-4 tabs/day Increase Sertraline to 50mg once daily. New prescription at your pharmacy Discussed importance of follow-up with your scheduled visits. Paracentesis on Mondays, Dialysis on [id number]-[id number]-[id number] Plan for office visits with us only on to avoid missing HD Discussed signs and symptoms to watch out for if needing to be evaluated in the ER We also discussed Urology referral. You shared that your kidney team is sending you to [place] instead. Notify if you would like a local referral Follow-up in 8 wks. Sooner if needed documented in this encounter Plan of Treatment Upcoming Encounters Date Type Department Care Team (Late st Contact Info) Description 03/08/2025 11:30 AM QA AUTOMATION DEVELOPER Office Visit [facility] [place] [address] [place] [address] Jason Perera MD [address] [place] [phone] 04/07/2025 10:00 AM QA AUTOMATION DEVELOPER Office Visit [facility] [address] [place] [address] Freddie Cruz Jr., MD [address] [place] [address] 06/28/2025 2:00 PM QA AUTOMATION DEVELOPER Office Visit [facility] [address] [place] [address] Gilberto Hurtado MD [address] [place] [address] documented as of this encounter Visit Diagnoses Diagnosis Situational mixed anxiety and depressive disorder- Primary Adjustment disorder with mixed anxiety and depressed mood Palliative care by specialist ESRD (end stage renal disease) on dialysis (CMS/HCC) End stage renal disease Hepatic cirrhosis, unspecified hepatic cirrhosis type, unspecified whether ascites present documented in this encounter Additional Health Concerns Assessment Noted Time PHQ-9 Depression Total Score: 3 02/15/20 25 1:00 PM CDT documented as of this encounter Care Teams Phy Therapist Relationship Specialty Start Date End Date Delio Salazar MD [address] [place] [phone] PCP - General Family Practice 01/30/24 documented as of this encounter
[2025-02-20 11:45] VITALS: BP 210/128; PULSE 92; TEMP 36.7; O2SAT 99
--- NOTE | 2025-02-20 12:02 | ECG_ITS ---
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 Measurements Intervals [place] Rate: 79 P: 0 MO: 0 QRS: 109 QRSD: 125 T: 97 QT: 370 QTc: 426 Interpretive Statements ATRIAL FIBRILLATION RIGHT AXIS DEVIATION [QRS AXIS > 100] ANTEROLATERAL MYOCARDIAL INFARCTION , OF INDETERMINATE AGE [40+ ms Q WAVE IN I/aVL/V3-V6] Compared to ECG 10/30/2024 20:25:54 Right-axis deviation now present Myocardial infarct finding now present Supraventricular rhythm no longer present Intraventricular conduction delay no longer present T-wave abnormality no longer present Possible ischemia no longer present Electronically Signed On 02-21-2025 19:21:05 CDT by Ruba Hussein M.D. [email or web address]
--- NOTE | 2025-02-20 12:17 | XRR_ITS ---
PROCEDURE INFORMATION: Exam: XR Chest Exam date and time: 02/20/2025 12:22 PM Age: 44 years old Clinical indication: Pain; Angina pectoris; Prior surgery; Surgery date: 6+ months; Surgery type: Dialysis cath; Additional info: Chest pain TECHNIQUE: Imaging protocol: Radiologic exam of the chest. Views: 1 view. COMPARISON: CR XR chest 1V portable [id number] 10/14/2023 6:56 PM FINDINGS: Tubes, catheters and devices: There is a dual lumen right-sided dialysis catheter in place. Lungs: Atelectasis at the lung bases. Pleural spaces: Small bilateral pleural effusions. Heart/Mediastinum: Cardiomegaly. Bones/joints: Unremarkable. Other findings: Mild congestive changes. XR/XR chest 1V portable [id number] IMPRESSION: As above.
[2025-02-20 12:28] VITALS: BP 210/128; PULSE 80
[2025-02-20] MEDS: nitroglycerin 1 gm/inch oint Pkt 1 INCH TOPICAL (12:28)
--- OUTSIDE RECORDS SUMMARY | 2025-02-20 12:31 | XMS_ITS | Clinical Summary ---
Author Organization [facility] Address [address] [place] [address] Phone Care Team Providers Care Head Of Business Development Name Role Phone Delio Salazar MD Primary [...] mg) by mouth daily. 30 Tablet 5 021 Active naloxone (NARCAN) 4 mg/spray [place], Non-Aerosol EMERGENCY USE ONLY: Administer 1 spray (4 mg) in one nostril one time. May repeat in alternating nostrils every 2-3 min until responsive or EMS arrives. 2 Each 3 023 Active portable oxygenIndicatio ns:Chronic respiratory failure with hypoxia and hypercapnia,Chr onic obstructive pulmonary disease with acute exacerbation (CMS/HCC),Chron ic diastolic heart failure Inogen Face to Face completed within 30 days: yes Length of Need: 99 months By: Nasal Cannula Continuously at 4 L/min. 1 Each 023 Active MINOXIDIL ORAL Take 10 mg by mouth 3 times daily. Active Miscellaneous Medical SupplyIndicatio ns:Right inguinal hernia Hernia belt/truss 1 Each 023 Active amLODIPine (NORVASC) 10 mg tabletIndicatio ns:Essential hypertension Take 1 tablet by mouth once daily 100 Tablet 1 024 Active hydrALAZINE (APRESOLINE) 100 mg Tablet tabletIndicatio ns:Essential hypertension take 1 tablet by mouth every 8 hours 300 Tablet 1 024 Active aspirin (ECOTRIN EC) 81 mg Tablet, Delayed Release (E.C.)Indicatio ns:Coronary artery disease involving telida coronary artery of telida heart without angina pectoris Take 1 tablet by mouth once daily 100 Tablet 1 024 Active atorvastatin (LIPITOR) 40 mg tabletIndicatio ns:Coronary artery disease involving telida coronary artery of telida heart without angina pectoris take 1 tablet by mouth once daily at bedtime 100 Tablet 1 024 Active carvediloL (COREG) 25 mg tabletIndicatio ns:Essential hypertension,Co ronary artery disease involving telida coronary artery of telida heart without angina pectoris TAKE 1 & 1/2 (ONE & ONE-HALF) TABLETS BY MOUTH TWICE DAILY WITH MEALS 180 Tablet 025 Active calcium ACETATE (PHOSLO) 667 mg Capsule Take 667 mg by mouth post-proc every 8 hours. 023 Active nitroglycerin (NITROSTAT) 0.4 mg Tablet, Sublingual Place 1 Tablet under tongue. 022 Active diclofenac sodium (VOLTAREN) 1 % gel Apply 2 Grams to affected area 4 times daily. 100 Gram 025 Active famotidine (PEPCID) 20 mg tabletIndicatio ns:Gastroesopha geal reflux disease without esophagitis Take 1 Tablet (20 mg) by mouth 2 times daily. 60 Tablet 3 025 Active umeclidinium (INCRUSE ELLIPTA) 62.5 mcg/actuation Disk with DeviceIndicatio ns:Chronic obstructive pulmonary disease, unspecified COPD type (CMS/HCC) Take 1 Puff by inhalation daily. 30 Each 2 025 2025 Active ipratropium-alb uteroL (DUONEB) 0.5 mg-3 mg(2.5 mg base)/3 mL Solution for NebulizationInd ications:Chroni c obstructive pulmonary disease, unspecified COPD type (CMS/HCC) Take 3 mL by inhalation every 6 hours as needed for Shortness of Breath. Dispense 1 box 1 Each 2 Active albuterol sulfate HFA 90 mcg/actuation aerosol inhalerIndicati ons:Chronic obstructive pulmonary disease, unspecified COPD type (CMS/HCC) Take 1 Puff by inhalation every 6 hours. 8.5 Gram 2 Active Blood Pressure Monitor (Blood Pressure Kit) KitIndications: Essential hypertension Use daily 1 Kit 1 Active nebulizerIndica tions:Chronic obstructive pulmonary disease, unspecified COPD type (CMS/HCC) Length of need 99 months Nebulizer with compressor, Kit: Disposable Nebulizer Kit, 2 per month, filters , areosol mask: Yes. Name of Medication duoneb 1 Each Active metoclopramide HCl (REGLAN) 5 mg tablet Take 1 Tablet (5 mg) by mouth 3 times daily as needed for Nausea/Emesis. 15 Tablet Active HYDROmorphone (DILAUDID) 4 mg tabletIndicatio ns:Palliative care by specialist,ESRD (end stage renal disease) on dialysis (CMS/HCC),Hepat ic cirrhosis, unspecified hepatic cirrhosis type, unspecified whether ascites present Take 1 Tablet (4 mg) by mouth every 6 hours as needed for Pain. 01/24-02/21 Max Daily Amount: 4 Tablets 100 Tablet 2024 Active HYDROmorphone (DILAUDID) 4 mg tabletIndicatio ns:Palliative care by specialist,ESRD (end stage renal disease) on dialysis (CMS/HCC),Hepat ic cirrhosis, unspecified hepatic cirrhosis type, unspecified whether ascites present Take 1 Tablet (4 mg) by mouth every 6 hours as needed for Pain. 02/16-03/16 Max Daily Amount: 16 mg 100 Tablet 025 2024 Active HYDROmorphone (DILAUDID) 4 mg tabletIndicatio ns:Palliative care by specialist,ESRD (end stage renal disease) on dialysis (CMS/HCC),Hepat ic cirrhosis, unspecified hepatic cirrhosis type, unspecified whether ascites present Take 1 Tablet (4 mg) by mouth every 6 hours as needed for Pain. 03/16-04/13 Max Daily Amount: 4 Tablets 100 Tablet 025 2024 Active sertraline (ZOLOFT) 50 mg tabletIndicatio ns:Situational mixed anxiety and depressive disorder Take 1 Tablet (50 mg) by mouth daily. 30 Tablet 2 Active HYDROmorphone (DILAUDID) 4 mg tabletIndicatio ns:Palliative care by specialist Take 1 Tablet (4 mg) by mouth every 6 hours as needed for Pain. 11/18/24-12/16/24 Max Daily Amount: 4 Tablets 112 Tablet 025 2024 Discontinued HYDROmorphone (DILAUDID) 4 mg tabletIndicatio ns:Palliative care by specialist,ESRD (end stage renal disease) on dialysis (CMS/HCC),Hepat ic cirrhosis, unspecified hepatic cirrhosis type, unspecified whether ascites present Take 1 Tablet (4 mg) by mouth every 6 hours as needed for Pain. 01/24-02/21 Max Daily Amount: 4 Tablets 100 Tablet 025 2024 Discontinued(O ther) sertraline (ZOLOFT) 25 mg tablet Take 1 Tablet (25 mg) by mouth daily. 30 Tablet 1 025 2024 Discontinued(R eorder) HYDROmorphone (DILAUDID) 4 mg tabletIndicatio ns:Palliative care by specialist,ESRD (end stage renal disease) on dialysis (CMS/HCC),Hepat ic cirrhosis, unspecified hepatic cirrhosis type, unspecified whether ascites present Take 1 Tablet (4 mg) by mouth every 6 hours as needed for Pain. 12/27-01/24 Max Daily Amount: 4 Tablets 100 Tablet 025 2024 Discontinued(O ther) HYDROmorphone (DILAUDID) 4 mg tabletIndicatio ns:Palliative care by specialist,ESRD (end stage renal disease) on dialysis (CMS/HCC),Hepat ic cirrhosis, unspecified hepatic cirrhosis type, unspecified whether ascites present Take 1 Tablet (4 mg) by mouth every 6 hours as needed for Pain. Max Daily Amount: 16 mg 13 Tablet 025 2024 Discontinued Active Problems Problem Noted Date Diagnosed Date [...] Encounters Date Type Department Care Team Description 02/14/2025 1:15 PM CDT Office Visit [facility] Supportive Care [facility] [address] [address] Gayathri Stubbs MD Situational mixed anxiety and depressive disorder (Primary Dx); Palliative care by specialist; ESRD (end stage renal disease) on dialysis (CMS/HCC); Hepatic cirrhosis, unspecified hepatic cirrhosis type, unspecified whether ascites present 01/26/2025 Refill [facility] Supportive Care [facility] [address] [place] [address] Freddie Cruz Jr., MD Palliative care by specialist; ESRD (end stage renal disease) on dialysis (CMS/HCC); Hepatic cirrhosis, unspecified hepatic cirrhosis type, unspecified whether ascites present (CMS/HCC) 01/24/2025 External Device Data STL ABSTRACTION Provider, Abstract 01/23/2025 Refill [facility] Supportive Care [facility] [address] [facility] [address] [place] [address] Freddie Cruz Jr., MD Palliative care by specialist; ESRD (end stage renal disease) on dialysis (CMS/HCC); Hepatic cirrhosis, unspecified hepatic cirrhosis type, unspecified whether ascites present (CMS/HCC) 12/30/2024 Refill [facility] Supportive Care [facility] [address] [facility] [address] [place] [phone] Freddie Cruz Jr., MD Palliative care by specialist; ESRD (end stage renal disease) on dialysis ([facility]/HCC); Hepatic cirrhosis, unspecified hepatic cirrhosis type, unspecified whether ascites present ([facility]/HCC) 12/29/2024 Refill [facility] Supportive Care [facility] [address] [facility] [address] [place] [phone] Freddie Cruz Jr., MD Palliative care by specialist; ESRD (end stage renal disease) on dialysis ([facility]/HCC); Hepatic cirrhosis, unspecified hepatic cirrhosis type, unspecified whether ascites present ([facility]/HCC) 12/28/2024 External Device Data STL ABSTRACTION Provider, Abstract 12/28/2024 Telephone [facility] Spiritual Care [address] [place] [phone] Macario Perales Cancer (Spiritual care) 12/27/2024 External Device Data STL ABSTRACTION Provider, Abstract 12/26/2024 Telephone [facility] Spiritual Care [address] [place] [phone] Macario Perales Spiritual Distress (Spiritual care) 12/23/2024 Telephone [facility] Spiritual Care [address] [place] [phone] Reva Mtz Referral (Palliative Care Spiritual Assessment) 12/21/2024 3:30 PM CDT Office Visit [facility] Vascular Surgery [place] [address] [place] [phone] Dre Gonzalez MD ESRD (end stage renal disease) ([facility]/HCC) (Primary Dx) 12/21/2024 2:20 PM CDT Office Visit [facility] [address] [place] [address] Brittani Mcdonnell NP Mitral valve stenosis, unspecified etiology (Primary Dx); ASHD (arteriosclerotic heart disease); NSTEMI (non-ST elevated myocardial infarction) ([facility]); S/P drug eluting coronary stent placement; ESRD on hemodialysis ([facility]/HCC); Severe pulmonary hypertension ([facility]/HCC); Cirrhosis of liver without ascites, unspecified hepatic cirrhosis type ([facility]/HCC); Nonrheumatic tricuspid valve regurgitation 12/21/2024 11:45 AM CDT Office Visit [facility] Supportive Care [facility] [address] [place] [address] Emerita Urban ANP Palliative care by specialist (Primary Dx); Essential hypertension; Coronary artery disease involving telida coronary artery of telida heart without angina pectoris; Chronic obstructive pulmonary disease, unspecified COPD type ([facility]/HCC); Gastroesophageal reflux disease without esophagitis; Cirrhosis of liver with ascites, unspecified hepatic cirrhosis type ([facility]/HCC); ESRD (end stage renal disease) on dialysis ([facility]/HCC); Recurrent major depressive disorder, in partial remission; Depression screen; Other specified counseling; Chronic diastolic heart failure ([facility]/HCC) 12/21/2024 Refill [facility] Supportive Care [facility] [address] [place] [address] Emerita Urban ANP Palliative care by specialist (Primary Dx); ESRD (end stage renal disease) on dialysis ([facility]/HCC); Hepatic cirrhosis, unspecified hepatic cirrhosis type, unspecified whether ascites present ([facility]) 12/19/2024 Refill [facility] Family Medicine [place] [address] [facility] [address] [place] [address] Mal Junior MD Essential hypertension 12/19/2024 Telephone [facility] Vascular Surgery [place] [address] [place] [address] Lily Luna MD Needs Appointment 12/09/2024 1:30 PM CDT Office Visit [facility] Vascular Surgery [address] [place] [address] Lily Luna MD ESRD (end stage renal disease) (CMS/HCC) (Primary Dx); Pseudoaneurysm of arteriovenous dialysis fistula, initial encounter 12/09/2024 Refill [facility] Family Medicine [place] [address] [place] [address] Mal Junior MD Essential hypertension 12/07/2024 Orders Only [facility] Gastroenterology- [address] [place] [address] Jason Perera MD Cirrhosis of liver with ascites, unspecified hepatic cirrhosis type (CMS/HCC) (Primary Dx) 11/29/2024 Telephone [facility] Vascular Surgery [address] [address] Lily Luna MD Appointment Notification 11/25/2024 2:49 PM CDT - 11/25/2024 8:14 PM CDT Emergency [facility] Emergency Department [address] [place] [phone] Vernon Young DO Roberts, Jacob A, DO Dependence on renal dialysis (Primary Dx); Problem with dialysis access, initial encounter Discharge Disposition: Home or Self Care 11/25/2024 Travel 11/23/2024 Telephone [facility] Vascular Surgery [address] [phone] Dre Gonzalez MD Needs Appointment from Last 3 Months Immunizations Immunization Administration Dates Next Due (ADACEL/BOOSTRIX)(10 YR UP) TDAP VACCINE, 0.5ML, IM 03/11/2017,07/15/2016,09/10/2015 (PFIZER)(12 YR UP) COVID-19 VACCINE - EMERGENCY USE AUTHORIZATION, MRNA, [id number](PF) 30 MCG/0.3 ML IM SUSP 12/29/2020,11/28/2020 (PNEUMOVAX [...] 0.8 1.8 Started: 2023 Smokeless Tobacco: Never Tobacco Cessation:Ready [...] worry about transportation for future doctor visits, knot picker cloth medication, etc.? 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 Gender Identity Not on file Sexual Orientation Not on file Last Filed Vital Signs Vital Sign Reading Time Taken Comments Blood Pressure 168/82 02/14/2025 1:37 PM CDT Pulse 65 02/14/2025 1:37 PM CDT Temperature 37 C (98.6 F) 02/14/2025 1:37 PM CDT Respiratory Rate 20 11/25/2024 6:55 PM CDT Oxygen Saturation 94% 02/14/2025 1:37 PM CDT Inhaled Oxygen Concentration - - Weight 117 kg (258 lb) 02/14/2025 1:37 PM CDT Height 185.4 cm (6' 1 ) 02/14/2025 1:37 PM CDT Body Mass Index 34.04 02/14/2025 1:37 PM CDT Plan of Treatment Upcoming Encounters Date Type Department Care Team (Late st Contact Info) Description 03/08/2025 11:30 AM SALES REPRESENTATIVE SALES MANAGER Office Visit [facility] G[facility]ology- [place] [address] [facility] [address] [place] [address] Jason Perera MD [address] [facility] [address] [place] [address] 04/07/2025 10:00 AM SALES REPRESENTATIVE SALES MANAGER Office Visit [facility] Supportive Care [facility] [address] [facility] [address] [place] [address] Freddie Cruz Jr., MD [address] [place] [address] 06/28/2025 2:00 PM SALES REPRESENTATIVE SALES MANAGER Office Visit [facility] [address] [facility] [address] [place] [address] Gilberto Hurtado MD [address] [facility] [address] [place] [address] Health Maintenance Due Date Last [...] history exists Medical Devices Implanted Type Area Tug Hand Device Identifier Shelf Expiration Date Model / Serial / Lot Cath Dyls Glidepath 23cm [id number] Implanted:Qty : 1 on 07/26/2018 by Miguel Monzon MD Catheter Right: Chest CR BARD- [employer]IN[employer] 08/02/2019 [id number] / / [id number] Cath Dialysis Glidepath 14.5fr 24cm Std [id number] - [id number] Implanted:Qty : 1 on 11/25/2024 by Fransico Frey MD at [facility] Catheter Right: Chest Wall BARD [employer]IN[employer] VASC [id number] 04/02/2026 [id number] / / [id number] Clip Ligating Horizon Red 394486 - Csc - [id number] Implanted:Qty : 1 on 07/08/2024 by Dre Gonzalez MD at [facility] Clip Left: Arm [employer] [id number] 03/26/2029 [id number] / / [id number] Clip Ligating Horizon Med Ti 248995 - Csc - [id number] Implanted:Qty : 1 on 07/08/2024 by Dre Gonzalez MD at [facility] Clip Left: Arm TELE[employer]LEX- WECK CLOSURE SYS [id number] 02/08/2029232864 / / [id number] Dev Closure Angioseal 6fr Vip 240490 - [id number] Implanted:Qty : 1 on 11/06/2022 by Betty Day MD at [facility] Closure Device Right: Groin [facility] [employer] 05/03/2023 [id number] / / [id number] Dev Vasc Closure Vascade 6-7fr [id number] - [id number] Implanted:Qty : 1 on 11/06/2022 at [facility] Closure Device Right: Groin [employer] 12/27/2023 [id number] / / [id number] Agent Hemostat Surgicel 3x4in 3s - [id number] Implanted:Qty : 1 on 07/08/2024 by Dre Gonzalez MD at [facility] Hemostatic Left: Arm [employer] 03/03/2029 [id number] / / [id number] Stent Synergy Xd 3.5x24mm Evrlms Elut [id number] - [id number] Implanted:Qty : 1 on 11/06/2022 by Betty Day MD at [facility] Stent Right: Coronary [employer] 06/09/2024 [id number] / / [id number] Procedures Procedure Name Priority Date/Time Associated Diagnosis Comments HEMODIALYSIS Stat 11/25/2024 7:11 PM CDT IR VENOUS ACCESS Stat 11/25/2024 4:02 PM CDT COMPREHENSIVE METABOLIC PANEL Stat 11/25/2024 3:08 PM CDT CBC WITH DIFFERENTIAL Stat 11/25/2024 3:[address] ABDOMEN PELVIS WO CONTRAST Stat [...] to the venous access site. The 14.5 Persian, 19 cm (tip to cuff), dual-lumen dialysis [...] peel-away inner dilator were removed. The 14.5 Persian dialysis catheter was advanced through the peel-away [...] to the venous access site. The 14.5 Persian, 19 cm (tip to cuff), dual-lumen dialysis [...] peel-away inner dilator were removed. The 14.5 Persian dialysis catheter was advanced through the peel-away [...] CBC WITH DIFFERENTIAL (11/25/2024 3:08 PM CDT) Pathologist [facility] WBC 3.3(L) 4.5 - 11.0 K/uL 11/25/2024 3:24 PM CDT [facility] RBC 3.54(L) 4.60 - 6.20 M/uL 11/25/2024 3:24 PM CDT [facility] HEMOGLOBIN 9.6(L) 14.0 - 18.0 g/dL 11/25/2024 3:24 PM CDT [facility] HEMATOCRIT 31.0(L) 41.0 - 53.0 % 11/25/2024 3:24 PM CDT [facility] MCV 87.6 84.0 - 103.0 fL 11/25/2024 3:24 PM CDT [facility] MCH 27.1 27.0 - 34.0 pg 11/25/2024 3:24 PM CDT [facility] MCHC 31.0 30.0 - 35.0 g/dL 11/25/2024 3:24 PM CDT [facility] PLATELETS 178 140 - 440 K/uL 11/25/2024 3:24 PM CDT [facility] MPV 10.2 8.9 - 12.8 fL 11/25/2024 3:24 PM [facility] RDW 18.5(H) 11.0 - 14.5 % 11/25/2024 3:24 PM [facility] RDW-STDEV 59.3(H) 37.0 - 54.0 fL 11/25/2024 3:24 PM [facility] NEUTROPHILS 54 42 - 75 % 11/25/2024 3:24 PM [facility] LYMPHOCYTES 18(L) 24 - 44 % 11/25/2024 3:24 PM [facility] MONOCYTES 13(H) 2 - 10 % 11/25/2024 3:24 PM [facility] EOSINOPHILS 15(H) 0 - 7 % 11/25/2024 3:24 PM [facility] BASOPHILS 1 0 - 1 % 11/25/2024 3:24 PM [facility] IMMATURE GRANULOCYTES 0 0 - 2 % 11/25/2024 3:24 PM [facility] NEUTROPHIL ABSOLUTE 1.78(L) 2.00 - 8.00 K/uL 11/25/2024 3:24 PM [facility] LYMPHOCYTE ABSOLUTE 0.58(L) 1.20 - 4.00 K/uL 11/25/2024 3:24 PM [facility] MONOCYTE ABSOLUTE 0.43 0.10 - 0.60 K/uL 11/25/2024 3:24 PM [facility] EOSINOPHIL ABSOLUTE 0.48 0.00 - 0.70 K/uL 11/25/2024 3:24 PM [facility] BASOPHILS ABSOLUTE 0.04 0.00 - 0.20 K/uL 11/25/2024 3:24 PM [facility] IMMATURE GRANULOCYTES ABSOLUTE 0.01 0.00 - 0.10 K/uL 11/25/2024 3:24 PM [facility] SMEAR REVIEWED: NA - Not Applicable 11/25/2024 3:24 PM [facility] Blood Venipuncture / Unknown 11/25/2024 3:08 PM CDT 11/25/2024 3:12 PM CDT us Vernon Young DO HEMATOLOGY ORDERABLES Final Result [facility] CLIA # [id number] [facility] [address] [address] [place] [address] * (ABNORMAL) COMPREHENSIVE METABOLIC PANEL (11/25/2024 3:08 PM CDT) SODIUM 132(L) 136 - 145 mmol/L 11/25/2024 3:59 PM CDT [facility] POTASSIUM 4.6 3.5 - 5.1 mmol/L 11/25/2024 3:59 PM CDT [facility] CHLORIDE 98 98 - 107 mmol/L 11/25/2024 3:59 PM CDT [facility] CO2 23 22 - 29 mmol/L 11/25/2024 3:59 PM CDT [facility] CALCIUM 10.5(H) 8.6 - 10.0 mg/dL 11/25/2024 3:59 PM CDT [facility] BUN 19 6 - 20 mg/dL 11/25/2024 3:59 PM CDT [facility] CREATININE 4.80(H) 0.67 - 1.17 mg/dL 11/25/2024 3:59 PM CDT [facility] GLUCOSE 90 74 - 99 mg/dL 11/25/2024 3:59 PM CDT [facility] TOTAL PROTEIN 7.2 6.4 - 8.3 g/dL 11/25/2024 3:59 PM CDT [facility] ALBUMIN 2.7(L) 3.5 - 5.2 g/dL 11/25/2024 3:59 PM CDT [facility] BILIRUBIN TOTAL 0.4 0.0 - 1.0 mg/dL 11/25/2024 3:59 PM CDT [facility] ALKALINE PHOSPHATASE 121 40 - 129 U/L 11/25/2024 3:59 PM CDT [facility] AST 11 10 - 50 U/L 11/25/2024 3:59 PM CDT [facility] ALT <5 <=50 U/L 11/25/2024 3:59 PM CDT [facility] GFR 15(L) >=60 mL/min/1. 73 sq meter 11/25/2024 3:59 PM CDT [facility] Comment:eGFR calculated with 2020 CKD-EPI equation. Vegetarian diet, extremely high or low muscle mass, and may affect results. Cystatin C with Glomerular Filtration Rate is a suitable alternative for these patients. ANION GAP 11 9 - 20 mmol/L 11/25/2024 3:59 PM CDT [facility] Blood Venipuncture / Unknown 11/25/2024 3:08 PM CDT 11/25/2024 3:12 PM CDT us Vernon Young DO CHEMISTRY ORDERABLES Final Result [facility] CLIA # [id number] [address] [place] [address] * CT ABDOMEN PELVIS WO CONTRAST (10/09/2024 [...] Recently Relevant to Health Maintenance Insurance [address] [place] [id number] MEDICAID [facility] DUAL COMPLETE HMO [facility] [id number] [facility] [address] RX [employer] Medicare Part D RX [employer] Medicaid [place] [address] Advance Directives For more information, please contact: [phone] * Full Code (Latest Code Status on [...] 4:49 PM 05/06/2024 4:08 PM Care Teams Head Of Business Development Relationship Specialty Start Date End Date Delio Salazar MD [address] [place] [phone] PCP - General Family Practice 01/30/24
--- OUTSIDE RECORDS SUMMARY | 2025-02-20 12:31 | XMS_ITS | Clinical Summary ---
Author Organization [facility] Address [address] [place] [id number] Care Team Providers Care Auto Parts Manager Name Role Phone Hank Crzu MD Unavailable [phone] Delio Salazar MD Primary Care Provider + [...] times a day with meals 01/24/20 24 Active minoxidiL (LONITEN) 2.5 mg tablet Take [...] 04/01/2024 Assessment & Plan (04/02/2024 10:16 AM NET C DEVELOPER): This is the reason pt was sent to our hospital. Seen by urology in ED and no further acute evaluation warranted. Likely component of scar tissue related to prior infarction/orchiectomy. This is exacerbated by persistent pressure related to anasarca/ascites. - pt wishes to follow up with a urologist in [place] given distance to [place] - plan home today if able to arrange ride home I have personally spent 40 minutes today including time with the patient, time reviewing data, time discussing with other providers, and time on discharge planning and documentation. Anasarca 04/01/2024 Assessment & Plan (04/02/2024 10:11 AM NET C DEVELOPER): HD and DUF as tolerated. Pt wishes to return home and go to usual dialysis center - s/p LVP and will need LVP's prn Abdominal pain 03/24/2024 Assessment & Plan (03/24/2024 1:20 PM NET C DEVELOPER): Suspect baseline given cirrhosis, hernia repair and ongoing umbilical hernia (reducible). Patient had BM 03/24, encouraged to keep this up as outpatient. - ok to discharge with some pain medications Cellulitis of drainage site following surgery Assessment & Plan (03/25/2024 9:57 AM NET C DEVELOPER): Erythema around FRANK drain, reportedly with purulent [...] 01/23/2024 Assessment & Plan (04/02/2024 10:14 AM NET C DEVELOPER): TTE (01/21): EF 74%, G2DD, mod calcified mitral valve annulus + severe mitral stenosis, PASP 33mHg Outpatient follow up with Cardiology in [facility] Assessment & Plan (03/22/2024 5:27 PM NET C DEVELOPER): Noted on TTE 01/2024 - To be [...] discharge, SW/CM updated. Discharge pending family to chart picker CAD (coronary artery disease) 01/19/2024 Assessment & Plan (04/02/2024 10:10 AM NET C DEVELOPER): ASA, statin; outpt cardiology f/u at [facility] Assessment & Plan (03/21/2024 10:54 PM NET C DEVELOPER): S/p PCI/MARYAM to RCA 11/06/22. TTE 01/22/24: [...] monotherapy. Prasugrel was discontinued by his outpatient line haul truck driver Pulmonary HTN 01/19/2024 Assessment & Plan (03/21/2024 11:03 PM NET C DEVELOPER): Evaluated by pHTN service at [facility] - felt to be Group 5 (2/2 ESRD) and Group 1 (cirrhosis), though likely also has Group 2/3 component in the context of severe mitral stenosis and pulmonary emphysema. - Per [facility] pHTN group, it is very unlikely the patient is going to be a candidate ofr pulmonary vasodilator therapy - Baseline chronic hypoxemia requiring 3-4 L O2 Assessment & Plan (01/24/2024 9:42 AM CDT): -Follows with OSH ([facility]) Pulmonology --From most recent OSH Pulm [...] 01/19/2024 Assessment & Plan (04/02/2024 10:14 AM NET C DEVELOPER): On home O2 at times though pt states he doesn't actually use it. Outpt f/u with pulmonary in [facility] Assessment & Plan (03/21/2024 11:03 PM NET C DEVELOPER): Continue incruse ellipta, PRN albuterol Assessment & [...] AM CDT): -01/18 med list updated in Epic History of pulmonary embolism 01/19/2024 Assessment & Plan (03/21/2024 10:56 PM NET C DEVELOPER): Unable to find records of PE, but noted RUE DVT 05/10/22 ([facility]). - No longer on [...] NGT in place -CT A/P repeated at [facility] on arrival - Large right inguinal [...] monotherapy. Prasugrel was discontinued by his outpatient line haul truck driver Cirrhosis of liver with ascites 01/18/2024 Assessment & Plan (04/02/2024 10:13 AM NET C DEVELOPER): Follows with GI in [facility]. Per chart review, unclear [...] evaluation Assessment & Plan (03/23/2024 6:12 PM NET C DEVELOPER): History of avlwtgana-eg-maklrbt ascites. Poor candidate for TIPS based on consult documentation from 01/2024 due concern for pulmonary HTN/right-sided heart disease, ?history of hepatic encephalopathy. Low SAAG on prior ascites studies argues against portal HTN. Has hx SBP. S/p LVP at [facility] on 03/19 with 7L removed. - para (03/23): 118 nucleated cells, 4L off - OSH para (03/19): 154 nucleated cells - Continue lactulose, titrate to 3-5 BM/day Assessment & Plan (01/24/2024 9:44 AM CDT): -Unknown etiology of cirrhosis -Follows with OS ([facility]) Gastroenterology in [place], [place] -Last clinic visit 09/07/23 > referred to [facility] Hepatology for TIPS evaluation, no [facility] documentation -Most recent EGD 11/07/22, negative [...] 01/17 Assessment & Plan (04/02/2024 10:14 AM NET C DEVELOPER): HD per renal Assessment & Plan (03/24/2024 1:21 PM NET C DEVELOPER): Anuric, HD TTS via LUE AVF. Received [...] Hypertension Assessment & Plan (04/02/2024 10:14 AM NET C DEVELOPER): Home meds; outpt f/u Assessment & Plan (03/23/2024 6:15 PM NET C DEVELOPER): Patient does not recall the bulk of his medications. Medications reconciled through review of his latest available dialysis center documentation. Favor adjusting at discharge, including limiting hydralazine as able. - Continue amlodipine 10 daily, Coreg 25 BID, hydralazine 100 TID, Imdur 240 daily, minoxidil 2.5 TID (down from 10 TID at last [facility] discharge) - resume losartan 03/24 - [...] 03/23/202403/06 Assessment & Plan (04/01/2024 6:54 AM NET C DEVELOPER): Mild hyperkalemia at 5.2; nephrology recommended Lokelma 10 mg while waiting for dialysis (has history of recent admission with hyperkalemia) Hold losartan given recurrent hyperkalemia Monitor potassium level closely Monitor with daily BMP while inpatient, if potassium rising again consider b.i.d. labs environmental monitoring technician Hyperphosphatemia Per Nephrology, monitor phosphorus 2 to 3 times a week while inpatient and substituting PhosLo with sevelamer 1600 t.i.d. 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 - problem added per billing, manage per ESRD and cirrhosis Umbilical hernia 01/19/2024 04/02/2024 Assessment & Plan (04/01/2024 7:14 AM NET C DEVELOPER): History of inguinal hernia s/p repair (Dr. [...] uit: Not Asked; Counseling Given: Not Answered [facility] Utilities Answer Date Recorded In the past 12 months has [employer], gas, oil, or water [employer] threatened to shut off services in your home? No 03/25/2024 Social Connection and Isolation Panel Answer Date Recorded In a typical week, how many times do you talk on the phone with family, friends, or neighbors? Once a week 03/25/2024 How often do you get together with friends or re latives? Once a week 03/25/2024 How often do you attend oriental orthodox or christianity serv ices? Never 03/25/2024 Do you belong to any clubs o r organizations such as oriental orthodox groups, unions, fraternal or athletic groups, or [...] any time in the past 12 m [place], were you homeless or living in a assisted (including now)? No 03/25/2024 Personal Safety Answer Date Recorded Have you ever been in or are you currently in a harmful physical or emotional relationship or is someone making you feel afraid or unsafe? Denies 04/01/2024 Sex and Gender Information Value Date Recorded Sex Assigned at Not on file Legal Sex Male 7:34 PM NET C DEVELOPER Gender Identity Not on file Sexual Orientation Not on file Obstetrics History Last Filed Vital Signs Vital Sign Reading Time Taken Comments Blood Pressure 159/92 04/02/2024 10:10 AM NET C DEVELOPER Pulse 71 04/02/2024 10:10 AM NET C DEVELOPER Temperature 36.3 C (97.3 F) 04/02/2024 10:10 AM NET C DEVELOPER Respiratory Rate 18 04/02/2024 10:10 AM NET C DEVELOPER Oxygen Saturation 95% 04/02/2024 10:10 AM NET C DEVELOPER Inhaled Oxygen Concentration - - Weight 79.8 kg (176 lb) 04/02/2024 5:40 AM NET C DEVELOPER Height 185.4 cm (6' 1 ) 04/01/2024 6:10 AM NET C DEVELOPER Body Mass Index 23.22 04/01/2024 6:10 AM NET C DEVELOPER Plan of Treatment Health Maintenance Due Date [...] Completed 01/22/2014 Medical Devices Implanted Type Area Molded Goods Spot Picker Device Identifier Shelf Expiration Date Model / Serial / Lot [employer]/C R Bard 6x3in Large Pore Knit Monofilament Smooth [place] [id number] - [id number] Implanted:Qty: 1 on 01/20/2024 by Joey Cardenas MD at [facility] Mesh Right: Inguinal [employer] [id number] 11/29/2027 [id number] / / [id number] Procedures Procedure Name Priority Date/Time Associated Diagnosis [...] Most Recently Relevant to Health Maintenance Insurance [place] [employer] [facility] DUAL COMPLETE [id number] [facility] PRIVATE [address] [id number] [facility] HE[facility] MEDICARE [place] [facility] MEDIC[facility] Advance Directives For more information, please contact: [phone] * Full Code (Latest Code Status on File) Date Activated Date Inactivated Comments 04/01/2024 6:45 AM 04/02/2024 8:07 PM * Full Code Date Activated Date Inactivated Comments 03/21/2024 10:43 PM 03/26/2024 1:47 AM * Full Code Date Activated Date Inactivated Comments 01/18/2024 11:21 PM 01/24/2024 6:51 PM Care Teams Auto Parts Manager Relationship Specialty Start Date End Date Delio Salazar MD [address] [place] [address] PCP - General Family Medicine 09/19/23 Hank Cruz MD Referring Physician Nephrology 02/18/18
--- OUTSIDE RECORDS SUMMARY | 2025-02-20 12:31 | XMS_ITS ---
Author Organization [facility] Address [address] [place] [address] Care Team Providers Care Coagulating Bath Mixer Name Role Phone Hank Cruz MD Unavailable [phone] Delio Salazar MD Primary Care Provider + [...] 04/01/2024 Assessment & Plan (04/02/2024 10:16 AM SLURRY TANK OPERATOR): This is the reason pt was sent to our hospital. Seen by urology in ED and no further acute evaluation warranted. Likely component of scar tissue related to prior infarction/orchiectomy. This is exacerbated by persistent pressure related to anasarca/ascites. - pt wishes to follow up with a urologist in [place] given distance to [place] - plan home today if able to arrange ride home I have personally spent 40 minutes today including time with the patient, time reviewing data, time discussing with other providers, and time on discharge planning and documentation. Anasarca 04/01/2024 Assessment & Plan (04/02/2024 10:11 AM SLURRY TANK OPERATOR): HD and DUF as tolerated. Pt wishes to return home and go to usual dialysis center - s/p LVP and will need LVP's prn Abdominal pain 03/24/2024 Assessment & Plan (03/24/2024 1:20 PM SLURRY TANK OPERATOR): Suspect baseline given cirrhosis, hernia repair and ongoing umbilical hernia (reducible). Patient had BM 03/24, encouraged to keep this up as outpatient. - ok to discharge with some pain medications Cellulitis of drainage site following surgery Assessment & Plan (03/25/2024 9:57 AM SLURRY TANK OPERATOR): Erythema around FRANK drain, reportedly with purulent [...] 01/23/2024 Assessment & Plan (04/02/2024 10:14 AM SLURRY TANK OPERATOR): TTE (01/21): EF 74%, G2DD, mod calcified mitral valve annulus + severe mitral stenosis, PASP 33mHg Outpatient follow up with Cardiology in [facility] Assessment & Plan (03/22/2024 5:27 PM SLURRY TANK OPERATOR): Noted on TTE 01/2024 - To be [...] discharge, SW/CM updated. Discharge pending family to picker box operator CAD (coronary artery disease) 01/19/2024 Assessment & Plan (04/02/2024 10:10 AM SLURRY TANK OPERATOR): ASA, statin; outpt cardiology f/u at [facility] Assessment & Plan (03/21/2024 10:54 PM SLURRY TANK OPERATOR): S/p PCI/MARYAM to RCA 11/06/22. TTE 01/22/24: [...] monotherapy. 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 - Per [facility] pHTN group, it is very unlikely the patient is going to be a candidate ofr pulmonary vasodilator therapy - Baseline chronic hypoxemia requiring 3-4 L O2 Assessment & Plan (01/24/2024 9:42 AM CDT): -Follows with OSH ([facility]) Pulmonology --From most recent OSH Pulm note [...] 01/19/2024 Assessment & Plan (04/02/2024 10:14 AM SLURRY TANK OPERATOR): On home O2 at times though pt states he doesn't actually use it. Outpt f/u with pulmonary in [facility] Assessment & Plan (03/21/2024 11:03 PM SLURRY TANK OPERATOR): Continue incruse ellipta, PRN albuterol Assessment & [...] CDT): -01/18 med list updated in [facility] History of pulmonary embolism 01/19/2024 Assessment & Plan (03/21/2024 10:56 PM SLURRY TANK OPERATOR): Unable to find records of PE, but noted RUE DVT 05/10/22 ([facility]). - No longer on anticoagulation [...] NGT in place -CT A/P repeated at [facility] on arrival - Large right inguinal [...] monotherapy. Prasugrel was discontinued by his outpatient glue mixer Cirrhosis of liver with ascites 01/18/2024 Assessment & Plan (04/02/2024 10:13 AM SLURRY TANK OPERATOR): Follows with GI in [facility]. Per chart review, unclear if [...] evaluation Assessment & Plan (03/23/2024 6:12 PM SLURRY TANK OPERATOR): History of qrkjzvjgh-iw-ueyiyif ascites. Poor candidate for TIPS based on consult documentation from 01/2024 due concern for pulmonary HTN/right-sided heart disease, ?history of hepatic encephalopathy. Low SAAG on prior ascites studies argues against portal HTN. Has hx SBP. S/p LVP at [facility] on 03/19 with 7L removed. - para (03/23): 118 nucleated cells, 4L off - OSH para (03/19): 154 nucleated cells - Continue lactulose, titrate to 3-5 BM/day Assessment & Plan (01/24/2024 9:44 AM CDT): -Unknown etiology of cirrhosis -Follows with OS ([facility]) Gastroenterology in [place], [place] -Last clinic visit 09/07/23 > referred to [facility] Hepatology for TIPS evaluation, no [facility] documentation -Most recent EGD 11/07/22, [...] 01/17 Assessment & Plan (04/02/2024 10:14 AM SLURRY TANK OPERATOR): HD per renal Assessment & Plan (03/24/2024 1:21 PM SLURRY TANK OPERATOR): Anuric, HD TTS via LUE AVF. Received [...] Hypertension Assessment & Plan (04/02/2024 10:14 AM SLURRY TANK OPERATOR): Home meds; outpt f/u Assessment & Plan (03/23/2024 6:15 PM SLURRY TANK OPERATOR): Patient does not recall the bulk of his medications. Medications reconciled through review of his latest available dialysis center documentation. Favor adjusting at discharge, including limiting hydralazine as able. - Continue amlodipine 10 daily, Coreg 25 BID, hydralazine 100 TID, Imdur 240 daily, minoxidil 2.5 TID (down from 10 TID at last [facility] discharge) - resume losartan 03/24 - [...] uit: Not Asked; Counseling Given: Not Answered [facility] Utilities Answer Date Recorded In the past 12 months has e [employer], or water [employer] threatened to shut off services in your home? No 03/25/2024 Social Connection and Isolation Panel Answer Date Recorded In a typical week, how many times do you talk on the phone with family, friends, or neighbors? Once a week 03/25/2024 How often do you get together with friends or re latives? Once a week 03/25/2024 How often do you attend jew or spiritism serv ices? Never 03/25/2024 Do you belong to any clubs o r organizations such as jew groups, unions, fraternal or athletic groups, or [...] time in the past 12 m [facility], were you homeless or living in a penitentiary (including now)? No 03/25/2024 Personal Safety Answer Date Recorded Have you ever been in or are you currently in a harmful physical or emotional relationship or is someone making you feel afraid or unsafe? Denies 04/01/2024 Sex and Gender Information Value Date Recorded Sex Assigned at Not on file Legal Sex Male 7:34 PM SLURRY TANK OPERATOR Gender Identity Not on file Sexual Orientation Not on file Last Filed Vital Signs Vital Sign Reading Time Taken Comments Blood Pressure 159/92 04/02/2024 10:10 AM SLURRY TANK OPERATOR Pulse 71 04/02/2024 10:10 AM SLURRY TANK OPERATOR Temperature 36.3 C (97.3 F) 04/02/2024 10:10 AM SLURRY TANK OPERATOR Respiratory Rate 18 04/02/2024 10:10 AM SLURRY TANK OPERATOR Oxygen Saturation 95% 04/02/2024 10:10 AM SLURRY TANK OPERATOR Inhaled Oxygen Concentration - - Weight 79.8 kg (176 lb) 04/02/2024 5:40 AM SLURRY TANK OPERATOR Height 185.4 cm (6' 1 ) 04/01/2024 6:10 AM SLURRY TANK OPERATOR Body Mass Index 23.22 04/01/2024 6:10 AM SLURRY TANK OPERATOR Results * Serum Hepatitis panel (01/22/2014 4:31 [...]
--- OUTSIDE RECORDS SUMMARY | 2025-02-20 12:31 | XMS_ITS | Encounter Summary ---
Author Organization [facility] Address [address] [place] [address] Phone Care Team Providers Care Manager Home Name Role Phone Hank Cruz MD Unavailable [phone] Mal Junior MD Primary Care Provider [phone] Delio Salazar MD Primary Care Provider + Savanah Villafana DATA PROCESSING MANAGER Unavailable [phone] Encounter Details Date Type Department Care Team (Late st Contact Info) Description 08/29/[address] [facility] Medicine Ophthalmology [address] [place] [id number] Perico Garcia MD PhD [address] [place] [address] [facility] [phone] [place], [place] [id number] Social History Tobacco Use Types Packs/Day Years Used Date Smoking Tobacco: Former Sex and Gender Information Value Date Recorded Sex Assigned at Not on file Legal Sex Male 7:34 PM COMPUTATIONAL SCIENCES PROFESSOR Gender Identity Not on file Sexual Orientation Not on file documented as of this encounter Plan of Treatment Not on file documented as of this encounter Visit Diagnoses Not on filedocumented in this encounter Additional Health Concerns Infection Onset Date Last Indicated Resolved Time COVID: Suspected 04/01/2024 04/01/2024 04/01/2024 3:05 AM COMPUTATIONAL SCIENCES PROFESSOR documented as of this encounter Eye Exam [...] Normal Normal Periphery Normal Normal Care Teams Manager Home Relationship Specialty Start Date End Date Mal Junior MD [address] [phone] PCP - General Family Medicine 02/18/18 09/18/23 Delio Salazar MD [address] [place] [address] PCP - General Family Medicine 09/19/23 Hank Cruz MD Referring Physician Nephrology 02/18/18 Savanah Villafana, DATA PROCESSING MANAGER [address] [facility] ([facility] Mailstop [phone] [place] [address] [facility]OP Outpatient Ross Lift Operator 03/28/24 03/29/24 documented as of this encounter
[2025-02-20 12:46] LABS: Hematocrit 37.1 % (37-53); Hemoglobin 11.80 g/dL (11.27-16.99); Mean Corpuscular HGB Conc 31.8 g/dL (30-55); Mean Corpuscular Hemoglobin 27.4 pg (27-33); Mean Corpuscular Volume 86.3 fl (82-101); Nucleated Red Blood Cells % 0 %; Platelet Count 215 10^3/cmm (157-399); Red Blood Count 4.30 10^6/uL (3.85-5.65); White Blood Count 3.99 10^3/uL (3.29-11.43)
[2025-02-20 13:06] LABS: Troponin(5th) Baseline 100 ng/L (0-15)
[2025-02-20 13:09] LABS: Alanine Aminotransferase 6 U/L (0-41); Albumin Level 3.5 g/dL (3.5-5.2); Alkaline Phosphatase 154 U/L (40-130); Anion Gap 16.1 (5-19); Aspartate Amino Transferase 16 U/L (0-40); Blood Urea Nitrogen 21 mg/dL (6-20); Calcium 12.0 mg/dL (8.5-10.5); Carbon Dioxide 23 mmol/L (22-29); Chloride 93 mmol/L (98-107); Globulin 5.0 g/dL (1.3-4.6); Glucose 76 mg/dL (65-115); Lipase 37 U/L (13-60); Osmolality Calculated 268 mOsm/kg (285-295); Potassium 4.1 mmol/L (3.5-5.1); Sodium 128 mmol/L (136-145); Total Protein 8.5 g/dL (6.6-8.7)
[2025-02-20 13:35] VITALS: PULSE 71; RESP 18; O2SAT 98
[2025-02-20] MEDS: methylPREDNISolone sod succ 125 mg/2 mL INJ 80 MG IVP (13:51)
[2025-02-20 14:43] LABS: Respiratory Syncytial Virus Ce NEGATIVE (Negative); SARS-CoV-2 PCR NEGATIVE (Negative)
[2025-02-20 14:45] LABS: Troponin 5 2HR 94.38 ng/L (0-15)
[2025-02-20 14:46] LABS: Troponin 5 2HR Delta -5.62 ABS# (0-10)
[2025-02-20] MEDS: HYDROmorphone 0.5 MG/0.5 ML INJ 2 MG IVP (14:58)
[2025-02-20 16:00] VITALS: BP 157/121; PULSE 83; RESP 14; O2SAT 90
[2025-02-20 17:15] VITALS: BP 176/118; PULSE 99; RESP 14; O2SAT 93
--- NOTE | 2025-02-20 21:32 | W.ED.URI ---
HPI - URI/Sore Throat General: Chief Complaint: Upper Respiratory Infection Stated Complaint: chest pain - SOB Time Seen by Provider: 02/20/25 12:02 History of Present Illness: 44-year-old male with history of end-stage renal disease on hemodialysis (/Thu, last session Thursday), congestive heart failure, and COPD, current smoker, presents for chest pain with associated shortness of breath. Patient uses home oxygen at 3 L continuously. Reports bilateral leg swelling not worse than usual. Recent steroid use and recent hospitalization for COPD exacerbation were queried; timing [Unclear]. Sick contacts were queried; none at home. Fluid intake adherence was queried; states he is compliant with water intake goals. Patient is requesting pain control and breathing treatments. Review of systems notable for wheezing and dyspnea; denies worsening leg swelling beyond baseline. Related Data Home Medications ?Medication ?Instructions ?Recorded ?Confirmed ferric citrate 210 mg iron tablet 630 mg PO TID 11/03/21 02/17/25 (Auryxia) aspirin 81 mg tablet,delayed 81 mg PO BEDTIME 02/21/22 02/17/25 release vit B,C-folic ac 800 mcg-zinc 12.5 1 tab PO QAM 10/01/22 02/17/25 mg-selen-D3 2,000 unit-vit E tablet (RenaPlex-D) carvedilol 25 mg tablet 50 mg PO Q12H 01/09/23 02/17/25 minoxidil 2.5 mg tablet 10 mg PO TID 05/16/24 02/17/25 sevelamer carbonate 800 mg tablet 1,600 mg PO TID 05/16/24 02/17/25 albuterol sulfate 90 mcg/actuation 1 puff inhalation Q6H PRN 09/19/24 02/17/25 aerosol inhaler Shortness Of Breath umeclidinium 62.5 mcg/actuation 1 inh inhalation DAILY 09/19/24 02/17/25 blister powder for inhalation (Incruse Ellipta) hydromorphone 4 mg tablet 4 mg PO Q6H PRN Pain 10/31/24 02/17/25 Previous Rx's ?Medication ?Instructions ?Recorded mupirocin 2 % topical ointment 1 applic topical BID #22 grams 01/18/25 (Centany) prednisone 10 mg tablet 40 mg (4 x 10 mg) PO DAILY #16 tabs 02/20/25 Allergies Allergy/AdvReac Type Severity Reaction Status Date / Time spironolactone Allergy Intermediate facial Verified 02/17/25 10:23 swelling nifedipine Allergy Unknown ALGY-Swell Verified 02/17/25 10:23 Lip/Tongue/Throat haloperidol (From Haldol) Allergy ADR-Irritab Verified 02/17/25 10:23 le ketorolac Allergy Unknown Verified 02/17/25 10:23 lisinopril Allergy ADR-Swelling Verified 02/17/25 10:23 of the Eye [facility] ED [facility]: Medical History (Updated 02/20/25 @ 16:26 by Mal Bingham DO) Abdominal ascites history of intermittent paracentesis, transudative fluid; prior work up has included negative biopsy, ceruloplasmin level normal, low iron, high ferritin, normal TIBC, negative HIV, hepatitis panel negative, JESÚS/SCL 70/double-stranded DNA antibodies negative, Alpha-fetoprotein level unremarkable, nonalcoholic by history, has hepatomegaly and splenomegaly Cirrhosis of liver Epididymitis 06/2022 Dyslipidemia History of home oxygen therapy COPD (chronic obstructive pulmonary disease) Patient under care of multiple providers Umbilical hernia Atherosclerosis of coronary artery Stent and balloon angioplasty to proximal 1 OM branch Congestive heart failure preserved ejection fraction History of cardiovascular stress test 07/2022 at [facility] perfusion imaging probably normal, no reversible defects, small fixed defect in apical anterior wall, EF 54%, nonischemic response to stress by EKG criteria Depression Pulmonary hypertension Uses bilevel positive airway pressure (BPAP) ventilation at home History of coronary angiogram 11/2021 - patent stent Inguinal hernia Chronic respiratory failure on home oxygen and bipap Nicotine dependence, cigarettes, with other nicotine-induced disorders Generalized anxiety disorder with panic attacks ESRD on dialysis Chronic abdominal pain COVID 05/25 Hypertensive emergency recurrent episodes Urethral stricture Pulmonary embolism 09/21 CTA inconclusive for very tiny peripheral LEFT lower lobe pulmonary artery sub segmental emboli versus poor opacification. Anemia chronic kidney disease Arteriovenous fistula for hemodialysis in place, secondary Degenerative disc disease, lumbar Hypertension uncontrolled Surgical History History of arteriovenous graft left upper extremity fistula, revision 07/2024 in [place] Stented coronary artery H/O hand surgery Amputation right 2&3 fingers 2017 History of adenoidectomy Family History Other Hypertension Social History Smoking and tobacco/nicotine status: current every day tobacco/nicotine user cigarettes Years cigarettes smoked: 21 [ Other cigarette details: started age 20, currently 0.5ppd ] Quit status (tobacco/nicotine): considering quitting Alcohol intake: never Substance/Drug Use: never Additional social history: Lives with his mother his sister and one of his kids. Patient wants full CODE STATUS as discussed on 10/31/2024 Household members: family Number of children: 3 Current occupational status: disabled Do you think of yourself as: Straight/Heterosexual Physical Exam Narrative: EXAM NARRATIVE: Mild respiratory distress Const: COMMON NORMALS: patient oriented x3 and alert HENMT: COMMON NORMALS: normocephalic and atraumatic HEAD & SCALP: normocephalic and atraumatic Eye: COMMON NORMALS: Equal, round and reactive pupils present, EOMs intact bilaterally and no scleral icterus PUPIL: Yes Equal, round and reactive pupils present Chest: OTHER: Chest pain is worse with deep inspiration Resp: OTHER: Mild respiratory distress, mild to moderate wheezes in all lung cantu, prolonged expiratory phase Cardio: COMMON NORMALS: regular rhythm and No murmurs present (Cardio) RHYTHM: regular rhythm OTHER: Tachycardic GI: COMMON NORMALS: Normal to inspection, nondistended, normoactive bowel sounds present, Soft to palpation and non-tender PALPATION: Yes Soft to palpation Extremity: OTHER: Stable pitting edema of the bilateral lower extremities, 2+, Neuro: COMMON NORMALS: patient oriented x3 SENSORIUM/ORIENTATION: Yes alert Skin: OTHER: Salo, dusky skin from head to toe. No evidence of infection. Course Vital Signs: Vital signs: Vital Signs Temperature 98.1 F 02/20/25 11:45 Pulse Rate 99 02/20/25 17:15 Respiratory Rate 14 02/20/25 17:15 Blood Pressure 176/118 02/20/25 17:15 Pulse Oximetry 93 02/20/25 17:15 Oxygen Delivery Me thod Nasal Cannula 02/20/25 16:00 Oxygen Flow Rate 0.5 02/20/25 16:00 MDM - URI/Sore Throat Medical Decision Making 44-year-old male with end-stage renal disease on hemodialysis, congestive heart failure, COPD, active smoker presents with chest pain and shortness of breath. Baseline leg edema not worse than usual; uses home oxygen 3 L continuously. Vital signs show severe hypertension; SpO2 99% on 4 L nasal cannula. Exam with pursed-lip breathing, prolonged expiratory phase, diffuse wheezes, 3+ bilateral leg edema, dusky appearance, sitting upright suggesting volume overload. EKG: sinus rhythm rate 79, no ST elevation/depression, no T-wave inversions, QTc 405. Machine read atrial fibrillation, but P waves visible in V4?V6; motion artifact noted. COPD exacerbation considered given wheezes and expiratory phase findings. Volume overload contributing to shortness of breath is probable given ESRD/CHF, orthopnea, edema, and dusky appearance. Infectious etiology to be assessed. After receiving breathing treatments and Solu-Medrol, work of breathing is decreased significantly. X-ray of the chest shows nothing acute. EKG similarly shows nothing acute. Labs are stable. He plans to have dialysis tomorrow and I think that will help. Work of breathing is decreased significantly with breathing treatments I do suspect COPD exacerbation. COVID-19, influenza, RSV testing is all negative. I suspect some other viral process exacerbating his COPD and will prescribe a 5-day course of prednisone. He shows good understanding and agrees to plan Lab Data 02/20/25 12:35 02/20/25 12:35 Radiology Impressions Chest X-Ray 02/20/25 12:17 IMPRESSION: As above. Laboratory Results WBC 3.99 10^3/uL (3.29-11.43) 02/20/25 12:35 RBC 4.30 10^6/uL (3.85-5.65) 02/20/25 12:35 Hgb 11.80 g/dL (11.27-16.99) 02/20/25 12:35 Hct 37.1 % (37-53) 02/20/25 12:35 MCV 86.3 fl (82-101) 02/20/25 12:35 MCH 27.4 pg (27-33) 02/20/25 12:35 MCHC 31.8 g/dL (30-55) 02/20/25 12:35 RDW 19.7 % (12.1-15.1) H 02/20/25 12:35 Plt Count 215 10^3/cmm (157-399) 02/20/25 12:35 MPV 9.8 fL (7.4-10.4) 02/20/25 12:35 Neut % (Auto) 60.1 % 02/20/25 12:35 Lymph % (Auto) 17.3 % 02/20/25 12:35 [place] % (Auto) 9.5 % 02/20/25 12:35 Eos % (Auto) 9.8 % 02/20/25 12:35 Baso % (Auto) 3.0 % 02/20/25 12:35 Neut # (Auto) 2.40 10^3/uL (1.8-7.7) 02/20/25 12:35 Lymph # (Auto) 0.7 10^3/uL (0.8-4.8) L 02/20/25 12:35 [place] # (Auto) 0.4 10^3/uL (0.2-0.9) 02/20/25 12:35 Eos # (Auto) 0.4 10^3/uL (0.0-0.8) 02/20/25 12:35 Baso # (Auto) 0.1 10^3/uL (0.0-0.1) 02/20/25 12:35 Nucleated RBC % (auto) 0 % 02/20/25 12:35 Nucleated RBCs # 0.0 /100WBC 02/20/25 12:35 Sodium 128 mmol/L (136-145) L 02/20/25 12:35 Potassium 4.1 mmol/L (3.5-5.1) 02/20/25 12:35 Chloride 93 mmol/L (98-107) L 02/20/25 12:35 Carbon Dioxide 23 mmol/L (22-29) 02/20/25 12:35 Anion Gap 16.1 (5-19) 02/20/25 12:35 BUN 21 mg/dL (6-20) H 02/20/25 12:35 Creatinine 3.3 mg/dL (0.7-1.2) H 02/20/25 12:35 GFR Calculation 20.7 mL/min (90-130) L 02/20/25 12:35 Glucose 76 mg/dL (65-115) 02/20/25 12:35 Calculated Osmolality 268 mOsm/kg (285-295) L 02/20/25 12:35 Calcium 12.0 mg/dL (8.5-10.5) H 02/20/25 12:35 Total Bilirubin 0.9 mg/dL (0.15-1.2) 02/20/25 12:35 AST 16 U/L (0-40) 02/20/25 12:35 ALT 6 U/L (0-41) 02/20/25 12:35 Alkaline Phosphatase 154 U/L (40-130) H 02/20/25 12:35 Troponin T Baseline 100 ng/L (0-15) H 02/20/25 12:35 Troponin T 120 Minute 94.38 ng/L (0-15) H 02/20/25 14:20 Delta Troponin T -5.62 ABS# (0-10) L 02/20/25 14:20 Total Protein 8.5 g/dL (6.6-8.7) 02/20/25 12:35 Albumin 3.5 g/dL (3.5-5.2) 02/20/25 12:35 Globulin 5.0 g/dL (1.3-4.6) H 02/20/25 12:35 Lipase 37 U/L (13-60) 02/20/25 12:35 Influenza A (PCR) Negative (Negative) 02/20/25 13:50 Influenza Type B (PCR) Negative (Negative) 02/20/25 13:50 RSV (PCR) Negative (Negative) 02/20/25 13:50 SARS-CoV-2 (PCR) Negative (Negative) 02/20/25 13:50 All radiology interpretation(s) finalized by discharge Discharge Plan Discharge Patient Disposition: Home Clinical Impression: Shortness of breath, Acute exacerbation of chronic obstructive pulmonary disease Condition: Stable Prescriptions: New prednisone 10 mg tablet 40 mg PO DAILY Qty: 16 0RF No Action ferric citrate [Auryxia] 210 mg iron Tablet 630 mg PO TID aspirin 81 mg tablet,delayed release (DR/EC) 81 mg PO BEDTIME RenaPlex-D 800 mcg-12.5 mg -2,000 unit tablet 1 tab PO QAM carvedilol 25 mg tablet 50 mg PO Q12H mupirocin [Centany] 2 % ointment 1 applic topical BID Qty: 22 0RF minoxidil 2.5 mg tablet 10 mg PO TID sevelamer carbonate 800 mg tablet 1,600 mg PO TID albuterol sulfate 90 mcg/actuation HFA aerosol inhaler 1 puff INHALATION Q6H PRN (Reason: Shortness Of Breath) Incruse Ellipta 62.5 mcg/actuation blister with device 1 inh INHALATION DAILY hydromorphone 4 mg tablet 4 mg PO Q6H PRN (Reason: Pain) Discharge Orders: Discharge ED (Routine); Ordered 02/20/25 Ordered By: Mal Bingham Referrals: Delio Salazar MD [Primary Care Provider, [facility]] Discharge Diet: Usual diet Discharge Activity: Increase activity as tolerated Patient Instructions: COPD (Chronic Obstructive Pulmonary Disease) (ED), Patient Portal & Elizabeth Instructions Activity Restrictions/Additional Instructions: Your blood test, EKG, chest x-ray, are reassuring. There is no evidence of COVID-19 or other infection requiring antibiotics. You likely suffering from upper respiratory infection causing COPD to exacerbate. Please use your albuterol liberally and take the prescribed steroids to keep your work of breathing decreased. Please make sure to get your dialysis on schedule as planned. Print Language: Andorran Coding Level of Care Code ED Power Checker for Cristi Diane
== END 2025-02-20 17:17 | disposition home or self-care (01) ==
PROVIDERS: Emergency Provider Student in an Organized Health Care Education/Training Program; PCP Family Medicine
DX: R06.02 Shortness of breath (principal); J44.1 Chronic obstructive pulmonary disease with (acute) exacerbation; Z11.52 Encounter for screening for COVID-19; Z79.82 Long term (current) use of aspirin; F17.210 Nicotine dependence, cigarettes, uncomplicated; E78.5 Hyperlipidemia, unspecified; I25.10 Atherosclerotic heart disease of native coronary artery without angina pectoris; I13.2 Hypertensive heart and chronic kidney disease with heart failure and with stage 5 chronic kidney disease, or end stage renal disease; N18.6 End stage renal disease; I50.30 Unspecified diastolic (congestive) heart failure; Z99.2 Dependence on renal dialysis
CPT/HCPCS: 36415; 71045; 80053; 83690; 84484; 85025; 87637; 93005; 94640; 96374; 96375; 99285; J1171; J2919; J9999

== ENCOUNTER 2025-02-27 11:35 | Day surgery (SDC) | payer OTHER, MEDICAID, SELFPAY ==
--- NOTE | 2025-02-27 11:41 | US_ITS ---
WS: [id number] ULTRASOUND-GUIDED PARACENTESIS CLINICAL INFORMATION: ascites Procedure Informed consent: The risks, benefits, and alternatives of the procedure were discussed with the patient. Verbal and written consent was obtained. Timeout: A timeout was performed to confirm the correct patient, procedure, and site. Preparation: A suitable skin site was identified. The patient was prepped and draped in usual sterile fashion. Lidocaine 1% was used for local anesthesia. Catheter: 4 Occitan One-step Yueh catheter. Side: LEFT Lower quadrant. Fluid Volume: 6300 ml Color: blood tinged yellow DISPOSITION: Discarded safely. Complications: None. Patient disposition: Discharged from the department in stable condition. US/US paracentesis abd w [id number] IMPRESSION: Uncomplicated ultrasound-guided paracentesis. Removal of 6300cc
[2025-02-27 11:49] VITALS: BP 203/130; PULSE 76; RESP 20; TEMP 36.7; O2SAT 96; BMI 29.7
[2025-02-27] MEDS: albumin 50 G/200 ML BAG 400 G IV (12:45)
[2025-02-27 12:55] LABS: Cyto Order Verification Order Verified
[2025-02-27 13:21] LABS: Albumin Peritoneal Fluid 1.6 g/dL
== END 2025-02-27 13:10 | disposition home or self-care (01) ==
LOC: GILAB 11:36
PROVIDERS: Internal Medicine; Radiology Neuroradiology; PCP Family Medicine
PROC: (CPT 49082; principal; 2025-02-27 12:00)
DX: R18.8 Other ascites (principal)
CPT/HCPCS: 49083; 82042; 84157; 87070; 87075; 87205; 88112; 96365; P9046

== ENCOUNTER 2025-03-13 11:31 | Day surgery (SDC) | payer OTHER, MEDICAID, SELFPAY ==
--- NOTE | 2025-03-13 11:37 | US_ITS ---
WS: [id number] ULTRASOUND-GUIDED PARACENTESIS CLINICAL INFORMATION: ascites COMPARISON: None. Procedure Informed consent: The risks, benefits, and alternatives of the procedure were discussed with the patient. Verbal and written consent was obtained. Timeout: A timeout was performed to confirm the correct patient, procedure, and site. Preparation: A suitable skin site was identified. The patient was prepped and draped in usual sterile fashion. Lidocaine 1% was used for local anesthesia. Catheter: 4 [place] One-step Yueh catheter. Side: RIGHT lower quadrant. Fluid Volume: 4750 ml Color: Bloody yellow DISPOSITION: Discarded safely. Complications: None. Patient disposition: Discharged from the department in stable condition. US/US paracentesis abd w [id number] IMPRESSION: Uncomplicated ultrasound-guided paracentesis. Removal of 4750 cc
[2025-03-13 11:50] VITALS: BP 165/107; PULSE 74; RESP 18; TEMP 36.6; O2SAT 96
[2025-03-13 12:36] LABS: Body Fluid Polynuclear #Cells 0.009; Monocytes # Body Fluid 0.145; Mononuclear WBC Body Fluid % 94.200 %; Polynuclear WBC Body Fluid % 5.800 %
[2025-03-13 12:52] LABS: Apprearance, Body Fluid CLOUDY; Color, Body Fluid RED; Cyto Order Verification No Order; PATH Referral YES
== END 2025-03-13 12:42 | disposition home or self-care (01) ==
LOC: GILAB 11:31
PROVIDERS: Radiology Neuroradiology; PCP Family Medicine; Visit Provider Internal Medicine
PROC: (CPT 49082; principal; 2025-03-13 12:00)
DX: R18.8 Other ascites (principal); K74.60 Unspecified cirrhosis of liver
CPT/HCPCS: 49083; 80503; 82042; 84157; 87070; 87075; 87205; 89050

== ENCOUNTER 2025-04-03 11:19 | Day surgery (SDC) | payer OTHER, MEDICAID, SELFPAY ==
--- NOTE | 2025-04-03 11:50 | US_ITS ---
WS: [id number] ULTRASOUND-GUIDED THERAPEUTIC AND DIAGNOSTIC PARACENTESIS Procedure, risks, and complications have been explained to the patient. Consent is obtained. Utilizing aseptic technique and 1% buffered lidocaine, a small dermatome was made through which a 5 [place]orese Yueh catheter was inserted. Approximately 5225 ml of clear light brown peritoneal fluid was obtained without difficulty. No complications encountered. US/US paracentesis abd w [id number] IMPRESSION: Uncomplicated paracentesis yielding 5225 ml of peritoneal fluid.
[2025-04-03 11:57] VITALS: BP 186/131; PULSE 96; RESP 18; TEMP 36.3; O2SAT 99; BMI 27.0
[2025-04-03 12:49] VITALS: BP 175/128; PULSE 93; RESP 18; O2SAT 99
[2025-04-03 12:54] LABS: Appearance, Peritoneal Fluid Turbid (Clear); Color, Peritoneal Fluid Red (Pale Yellow); Cyto Order Verification Order Verified
[2025-04-03 12:55] LABS: Pathology Referral Yes
[2025-04-03 13:01] LABS: Mononuclear #, Pertinoneal Fl 0.131 10^3/uL; Mononuclear %, Pertinoneal Fl 91.600 %; Polynuclear # Cells, Perit 0.012 10^3/uL; Polynuclear % Cells,Perit 8.400 %; RBC Pertioneal Fluid 31 10^3/uL; WBC Peritoneal Fluid 143 /uL
[2025-04-03 13:21] LABS: Albumin Peritoneal Fluid 1.6 g/dL
== END 2025-04-03 13:02 | disposition home or self-care (01) ==
PROVIDERS: Radiology Diagnostic Radiology; PCP Family Medicine; Visit Provider Internal Medicine
PROC: (CPT 49082; principal; 2025-04-03 12:00)
DX: R18.8 Other ascites (principal)
CPT/HCPCS: 49083; 80503; 82042; 84157; 87075; 88112; 88305; 89050

== ENCOUNTER 2025-04-12 13:29 | Inpatient (IN) | payer MEDICARE, MEDICAID, SELFPAY ==
[2025-04-12] VITALS (40 sets, daily range): BP systolic 135–192; BP diastolic 86–150; PULSE 74–132; RESP 18–40; TEMP 33.1–36.7; O2SAT 90–95; BMI 15.8
--- NOTE | 2025-04-12 13:31 | XR_ITS ---
WS: [id number] XR chest 1V portable [id number] REASON FOR EXAM: ams FINDINGS: Large bore right IJ catheter. Moderate tortuosity and ectasia of the thoracic aorta. Significant cardiomegaly. Moderate central pulmonary venous congestion. Diffuse reticular interstitial lung opacities with peribronchial cuffing in the right lung field. Likely chronic and acute/subacute. Moderate to large right pleural effusion with right lower lobe atelectasis. Lower and mid left hemithorax is opacified due to large left pleural effusion and left lower lobe atelectasis. There are central air bronchograms in the left lung indicating airspace consolidation. Only a small amount of normally aerated left lung remains. XR/XR chest 1V portable [id number] IMPRESSION: Abnormal chest as above likely secondary to congestive heart failure.
--- NOTE | 2025-04-12 13:32 | ECG_ITS ---
[facility]12 Pat Name: Mal Gibbs Department: Room: Gender: Male Ip Counsel: : 1980 Requested By: Dayana Nunez Order Number: [id number] Mohini MD: Ruba Hussein M.D. Measurements Intervals [place] Rate: 84 P: 0 GA: 0 QRS: 116 QRSD: 144 T: 148 QT: 402 QTc: 476 Interpretive Statements ATRIAL FIBRILLATION INTRAVENTRICULAR CONDUCTION DELAY [130+ ms QRS DURATION] LATERAL MYOCARDIAL INFARCTION , PROBABLY RECENT [40+ ms Q WAVE AND/OR ST/T ABNORMALITY IN I/aVL/V5/V6] ACUTE MD Compared to ECG 02/20/2025 12:02:46 Intraventricular conduction delay now present Right-axis deviation no longer present Myocardial infarct finding still present Electronically Signed On 04-13-2025 17:28:10 [employer] L[employer] INTERPRETER by Ruba Hussein M.D. [email or web address]
[2025-04-12 13:50] LABS: ABG PCO2 51.9 mmHg (35-45); ABG PH Result 7.20 (7.35-7.45); Arterial Blood Gas Hematocrit 32.6 % (42-52); Blood Gas Allen Test Pos; Blood Gas LPM 6.0 %; Blood Gas Operator Identificat WALCI; Blood Gas Sample Site Radial, right; Blood Gas Sample Type Arterial; Carboxyhemoglobin 1.5 %THgb (0.4-20.1); HCO3 ABG 20.3 mmol/L (22-26); Methemoglobin 0.3 % (0.4-1.5); PO2 ABG 68.0 mmHg (80.0-100.0)
[2025-04-12 13:55] LABS: Hematocrit 34.9 % (37-53); Hemoglobin 10.80 g/dL (11.27-16.99); Mean Corpuscular HGB Conc 30.9 g/dL (30-55); Mean Corpuscular Hemoglobin 28.3 pg (27-33); Mean Corpuscular Volume 91.4 fl (82-101); Nucleated Red Blood Cells % 0 %; Platelet Count 110 10^3/cmm (157-399); Red Blood Count 3.82 10^6/uL (3.85-5.65); White Blood Count 6.46 10^3/uL (3.29-11.43)
--- NOTE | 2025-04-12 13:58 | W.ED.GENADLT ---
HPI - General Adult General: Chief complaint: Altered Mental Status Stated complaint: AMS Time Seen by Provider: 04/12/25 13:29 Source: EMS Mode of arrival: EMS Limitations: altered mental status History of Present Illness: 44-year-old male well-known to the ER and has multiple medical issues including CHF end-stage renal disease per EMS patient had missed his last dialysis appointment and was found unresponsive per EMS his glucose was 20 they not able to get an IV they did give glucagon patient's glucose here is 12 and he is unresponsive. Related Data Home Medications ?Medication ?Instructions ?Recorded ?Confirmed ferric citrate 210 mg iron tablet 630 mg PO TID 11/03/21 04/12/25 (Auryxia) aspirin 81 mg tablet,delayed 81 mg PO BEDTIME 02/21/22 04/12/25 release vit B,C-folic ac 800 mcg-zinc 12.5 1 tab PO QAM 10/01/22 04/12/25 mg-selen-D3 2,000 unit-vit E tablet (RenaPlex-D) carvedilol 25 mg tablet 50 mg PO Q12H 01/09/23 04/12/25 sevelamer carbonate 800 mg tablet 1,600 mg PO TID 05/16/24 04/12/25 albuterol sulfate 90 mcg/actuation 1 puff inhalation Q6H PRN 09/19/24 04/12/25 aerosol inhaler Shortness Of Breath umeclidinium 62.5 mcg/actuation 1 inh inhalation DAILY 09/19/24 04/12/25 blister powder for inhalation (Incruse Ellipta) hydromorphone 4 mg tablet 4 mg PO Q6H PRN Pain 10/31/24 04/12/25 amlodipine 10 mg tablet 10 mg PO DAILY 04/12/25 04/12/25 famotidine 20 mg tablet 20 mg PO BID 04/12/25 04/12/25 hydralazine 100 mg tablet 100 mg PO Q8H 04/12/25 04/12/25 pantoprazole 40 mg tablet,delayed 40 mg PO DAILY 04/12/25 04/12/25 release sertraline 50 mg tablet 50 mg PO DAILY 04/12/25 04/12/25 Previous Rx's ?Medication ?Instructions ?Recorded mupirocin 2 % topical ointment 1 applic topical BID #22 grams 01/18/25 (Centany) prednisone 10 mg tablet 40 mg (4 x 10 mg) PO DAILY #16 tabs 02/20/25 Allergies Allergy/AdvReac Type Severity Reaction Status Date / Time spironolactone Allergy Intermediate facial Verified 03/10/25 08:21 swelling nifedipine Allergy Unknown ALGY-Swell Verified 03/10/25 08:21 Lip/Tongue/Throat haloperidol (From Haldol) Allergy ADR-Irritab Verified 03/10/25 08:21 le ketorolac Allergy Unknown Verified 03/10/25 08:21 lisinopril Allergy ADR-Swelling Verified 03/10/25 08:21 of the Eye Review of Systems General: Reports: ROS unobtainable due to mental status PFSH ED PFSH: Medical History (Updated 04/12/25 @ 18:42 by Ravindra Irvin MD) Abdominal ascites history of intermittent paracentesis, transudative fluid; prior work up has included negative biopsy, ceruloplasmin level normal, low iron, high ferritin, normal TIBC, negative HIV, hepatitis panel negative, JESÚS/SCL 70/double-stranded DNA antibodies negative, Alpha-fetoprotein level unremarkable, nonalcoholic by history, has hepatomegaly and splenomegaly Cirrhosis of liver Epididymitis 06/2022 Dyslipidemia History of home oxygen therapy COPD (chronic obstructive pulmonary disease) Patient under care of multiple providers Umbilical hernia Atherosclerosis of coronary artery Stent and balloon angioplasty to proximal 1 OM branch Congestive heart failure preserved ejection fraction History of cardiovascular stress test 07/2022 at [facility] perfusion imaging probably normal, no reversible defects, small fixed defect in apical anterior wall, EF 54%, nonischemic response to stress by EKG criteria Depression Pulmonary hypertension Uses bilevel positive airway pressure (BPAP) ventilation at home History of coronary angiogram 11/2021 - patent stent Inguinal hernia Chronic respiratory failure on home oxygen and bipap Nicotine dependence, cigarettes, with other nicotine-induced disorders Generalized anxiety disorder with panic attacks ESRD on dialysis Chronic abdominal pain COVID 05/25 Hypertensive emergency recurrent episodes Urethral stricture Pulmonary embolism 09/21 CTA inconclusive for very tiny peripheral LEFT lower lobe pulmonary artery sub segmental emboli versus poor opacification. Anemia chronic kidney disease Arteriovenous fistula for hemodialysis in place, secondary Degenerative disc disease, lumbar Hypertension uncontrolled Surgical History History of arteriovenous graft left upper extremity fistula, revision 07/2024 in [place] Stented coronary artery H/O hand surgery Amputation right 2&3 fingers 2017 History of adenoidectomy Family History Other Hypertension Social History Smoking and tobacco/nicotine status: current every day tobacco/nicotine user cigarettes Years cigarettes smoked: 21 [ Other cigarette details: started age 20, currently 0.5ppd ] Quit status (tobacco/nicotine): considering quitting Alcohol intake: never Substance/Drug Use: never Additional social history: Lives with his mother his sister and one of his kids. Patient wants full CODE STATUS as discussed on 10/31/2024 Household members: family Number of children: 3 Current occupational status: disabled Do you think of yourself as: Straight/Heterosexual Physical Exam Const: COMMON NORMALS: negative for patient oriented x3 GENERAL APPEARANCE: ill appearing HENMT: COMMON NORMALS: normocephalic and atraumatic HEAD & SCALP: normocephalic and atraumatic Eye: COMMON NORMALS: Equal, round and reactive pupils present and EOMs intact bilaterally PUPIL: Yes Equal, round and reactive pupils present Neck/C-Spine: COMMON NORMALS: full ROM and supple Chest: COMMONS NORMALS: normal inspection of the chest Resp: COMMON NORMALS: normal respiratory effort, No retractions, No use of accessory muscles and clear to auscultation bilaterally AUSCULTATION: clear to auscultation bilaterally Cardio: COMMON NORMALS: regular rate, regular rhythm and No murmurs present (Cardio) RATE: regular rate RHYTHM: regular rhythm GI: COMMON NORMALS: Normal to inspection, nondistended, normoactive bowel sounds present, Soft to palpation, non-tender and no masses PALPATION: Yes Soft to palpation Extremity: COMMON NORMALS: normal to inspection and full ROM Neuro: COMMON NORMALS: negative for patient oriented x3 Psych: COMMON NORMALS: negative for mental status grossly normal Skin: COMMON NORMALS: no rashes or lesions noted and no wounds GENERAL SKIN EXAM: no rashes or lesions noted Course Vital Signs: Vital signs: Vital Signs Temperature 93.1 F L 04/12/25 17:47 Pulse Rate 92 04/12/25 17:15 Respiratory Rate 22 H 04/12/25 15:40 Blood Pressure 156/126 04/12/25 17:15 Pulse Oximetry 95 04/12/25 17:15 Oxygen Delivery Me thod Nasal Cannula 04/12/25 17:15 Oxygen Flow Rate 6 04/12/25 16:44 MDM - General Adult Medical Decision Making 44-year-old male with multiple comorbidities and complications including congestive heart failure end-stage renal disease on dialysis cirrhosis history of being noncompliant. Patient presented here with altered mental status he is found to be hypoglycemic his blood sugar was 11 did give him multiple boluses along with starting him on D10 drip as he had had persistent hypoglycemia. He is also hypothermic here as well did apply a [place] hugger's temp improved. X-ray shows large amount of likely pulmonary edema did get blood cultures IV antibiotics for possible pneumonia. He is continue to be altered here concerning for other etiologies considered a possible stroke CT did show abnormalities. Unknown how long patient's been altered he is not a lytic candidate. I did speak to the hospitalist will admit the ICU on this time. critical care time 55 minutes The high probability of a clinically significant, sudden or life threatening deterioration of the patient's resp/renal system(s) required my full and direct attention, intervention and personal management. The critical care time is as shown. This time is in addition to time spent performing any reported procedures but includes the following: [x] Data and vital sign review and interpretation [x] Patient assessment, examination and intervention [x] Documentation [x] Medication orders and management EKG interpreted by me at 1346 A-fib heart rate [address] elevation QRS 144 QTc 443 Medical Records I reviewed the patient's medical records. Lab Data I reviewed the patient's lab results. 04/12/25 13:30 04/12/25 13:30 Radiology Impressions Chest X-Ray 04/12/25 13:31 IMPRESSION: Abnormal chest as above likely secondary to congestive heart failure. Head CT 04/12/25 14:09 IMPRESSION: 1. Conspicuous hypoattenuation within the brainstem; brain MRI is recommended to exclude an underlying lesion or process. 2. Left caudate volume loss with calcification and surrounding hypoattenuation which could be related to remote insult, not seen on the 01/11/[address] THIS REPORT CONTAINS FINDINGS THAT MAY BE CRITICAL TO PATIENT CARE. The findings were verbally communicated via telephone conference with RAVINDRA IRVIN at 5:32 PM MORNING NEWS PRODUCER on 04/12/2025. The findings were acknowledged and understood. Laboratory Results WBC 6.46 10^3/uL (3.29-11.43) 04/12/25 13:30 RBC 3.82 10^6/uL (3.85-5.65) L 04/12/25 13:30 Hgb 10.80 g/dL (11.27-16.99) L 04/12/25 13:30 Hct 34.9 % (37-53) L 04/12/25 13:30 MCV 91.4 fl (82-101) 04/12/25 13: MCH 28.3 pg (27-33) 04/12/25 13: MCHC 30.9 g/dL (30-55) 04/12/25 13: RDW 17.3 % (12.1-15.1) H 04/12/25 13:30 Plt Count 110 10^3/cmm (157-399) L 04/12/25 13: MPV 11.1 fL (7.4-10.4) H 04/12/25 13:30 Neut % (Auto) 86.9 % 04/12/25 13:30 Lymph % (Auto) 6.2 % 04/12/25 13:30 [place]uming % (Auto) 5.4 % 04/12/25 13:30 Eos % (Auto) 0.6 % 04/12/25 13: Baso % (Auto) 0.3 % 04/12/25 13:30 Neut # (Auto) 5.61 10^3/uL (1.8-7.7) 04/12/25 13:30 Lymph # (Auto) 0.4 10^3/uL (0.8-4.8) L 04/12/25 13:30 Cuming # (Auto) 0.4 10^3/uL (0.2-0.9) 04/12/25 13:30 Eos # (Auto) 0.0 10^3/uL (0.0-0.8) 04/12/25 13:30 Baso # (Auto) 0.0 10^3/uL (0.0-0.1) 04/12/25 13:30 Nucleated RBC % (auto) 0 % 04/12/25 13:30 Nucleated RBCs # 0.0 /100WBC 04/12/25 13:30 PT 20.90 SECONDS (12.1-14.9) H 04/12/25 13:30 INR 1.69 (0.8-1.2) H 04/12/25 13:30 Specimen Type Arterial 04/12/25 13:39 Sample Site Radial, right 04/12/25 13:39 ABG pH 7.20 (7.35-7.45) L 04/12/25 13:39 ABG pCO2 51.9 mmHg (35-45) H 04/12/25 13:39 ABG pO2 68.0 mmHg (80.0-100.0) L 04/12/25 13:39 ABG HCO3 20.3 mmol/L (22-26) L 04/12/25 13:39 ABG Base Excess -7.7 mmol/L (-2.0-2.0) L 04/12/25 13:39 Alexei Test Pos 04/12/25 13:39 Hematocrit 32.6 % (42-52) L 04/12/25 13:39 Hgb O2 Saturation 86.3 % (95-100) L 04/12/25 13:39 Carboxyhemoglobin 1.5 %THgb (0.4-20.1) 04/12/25 13:39 Methemoglobin 0.3 % (0.4-1.5) L 04/12/25 13:39 Total Hemoglobin 10.6 g/dL (14-18) L 04/12/25 13:39 O2 Delivery Device Nc 04/12/25 13:39 O2 Liters/Min 6.0 % 04/12/25 13:39 Independent Film Maker ID [place] 04/12/25 13:39 Sodium 133 mmol/L (136-145) L 04/12/25 13:30 Potassium 5.5 mmol/L (3.5-5.1) H 04/12/25 13:30 Chloride 97 mmol/L (98-107) L 04/12/25 13:30 Carbon Dioxide 19 mmol/L (22-29) L 04/12/25 13:30 Anion Gap 22.5 (5-19) H 04/12/25 13:30 BUN 57 mg/dL (6-20) H 04/12/25 13:30 Creatinine 6.2 mg/dL (0.7-1.2) H* 04/12/25 13:30 GFR Calculation 10.0 mL/min (90-130) L 04/12/25 13:30 Glucose 11 mg/dL (65-115) L* 04/12/25 13:30 POC Glucose 75 mg/dL (70-110) 04/12/25 16:01 Calculated Osmolality 287 mOsm/kg (285-295) 04/12/25 13:30 Lactic Acid 1.1 mmol/L (0.5-2.2) 04/12/25 13:30 Calcium 9.6 mg/dL (8.5-10.5) 04/12/25 13:30 Total Bilirubin 1.2 mg/dL (0.15-1.2) 04/12/25 13:30 AST 63 U/L (0-40) H 04/12/25 13:30 ALT 21 U/L (0-41) 04/12/25 13:30 Alkaline Phosphatase 281 U/L (40-130) H 04/12/25 13:30 NT-Pro-B Natriuret Pep > 91096 pg/mL (0-125) H 04/12/25 13:30 Total Protein 7.2 g/dL (6.6-8.7) 04/12/25 13:30 Albumin 2.7 g/dL (3.5-5.2) L 04/12/25 13:30 Globulin 4.5 g/dL (1.3-4.6) 04/12/25 13:30 Procalcitonin 0.10 ng/mL (0-0.5) 04/12/25 13:30 TSH 5.23 uIU/mL (0.27-4.20) H 04/12/25 13:30 All radiology interpretation(s) finalized by discharge Critical Care Time Critical Care Time: Critical Care Time: Yes Total Critical Care Time: 55 Attestation: The high probability of a clinically significant, sudden or life threatening deterioration of the patient's resp/renal system(s) required my full and direct attention, intervention and personal management. The critical care time is as shown. This time is in addition to time spent performing any reported procedures but includes the following: [x] Data and vital sign review and interpretation [x] Patient assessment, examination and intervention [x] Documentation [x] Medication orders and management Discharge Plan Discharge Patient Disposition: Admitted As Inpatient Admit Provider: Kerwin Platt Clinical Impression: End stage renal disease on dialysis, Hypoglycemia, Altered mental status Congestive heart failure Qualifiers: Heart failure type: unspecified Heart failure chronicity: unspecified Qualified Code(s): I50.9 - Heart failure, unspecified Condition: Stable Coding Level of Care Code ED Aco Coordinator for Cristi Diane
[2025-04-12 14:09] LABS: INR 1.69 (0.8-1.2); Prothrombin Time 20.90 SECONDS (12.1-14.9)
--- NOTE | 2025-04-12 14:09 | CTR_ITS ---
PROCEDURE INFORMATION: Exam: CT Head Without Contrast Exam date and time: 04/12/2025 4:54 PM Age: 44 years old Clinical indication: Altered mental status/memory loss; Additional info: AMS TECHNIQUE: Imaging protocol: Computed tomography of the head without contrast. Radiation optimization: All CT scans at this facility use at least one of these dose optimization techniques: automated exposure control; mA and/or kV adjustment per patient size (includes targeted exams where dose is matched to clinical indication); or iterative reconstruction. COMPARISON: CT head wo con* [id number] 08/28/2021 5:23 PM ; head CT dated 08/13/2024; facial CT dated 01/11/2025 RADIATION DOSE METRICS: Total DLP (mGy-cm): 803.72 FINDINGS: Brain: Calcification with some volume loss in the left caudate. Additional surrounding hypoattenuation is seen. These findings could reflect gliosis from prior insult such as prior ischemic or hemorrhagic infarct. Somewhat conspicuous hypoattenuation is seen within the brainstem, some of which is artifactual due to streak artifact although some edema may be present. In particular, the midbrain appears hypoattenuating with more normal-appearing periaqueductal tissue/canaliculi on image 24 of series 4 Cerebral ventricles: Within normal limits for age. Paranasal sinuses: Visualized sinuses are unremarkable. Mastoid air cells: Visualized mastoid air cells are well aerated. Bones: Unremarkable. Soft tissues: Possible gas due to injection along the superior aspect of the left orbit. CT/CT head wo con* [id number] IMPRESSION: 1. Conspicuous hypoattenuation within the brainstem; brain MRI is recommended to exclude an underlying lesion or process. 2. Left caudate volume loss with calcification and surrounding hypoattenuation which could be related to remote insult, not seen on the 01/11/[address] THIS REPORT CONTAINS FINDINGS THAT MAY BE CRITICAL TO PATIENT CARE. The findings were verbally communicated via telephone conference with RAVINDRA IRVIN at 5:32 PM MATERIAL YARD CLERK on 04/12/2025. The findings were acknowledged and understood.
[2025-04-12 14:23] LABS: Alanine Aminotransferase 21 U/L (0-41); Albumin Level 2.7 g/dL (3.5-5.2); Alkaline Phosphatase 281 U/L (40-130); Anion Gap 22.5 (5-19); Aspartate Amino Transferase 63 U/L (0-40); Blood Urea Nitrogen 57 mg/dL (6-20); Calcium 9.6 mg/dL (8.5-10.5); Carbon Dioxide 19 mmol/L (22-29); Chloride 97 mmol/L (98-107); Globulin 4.5 g/dL (1.3-4.6); Potassium 5.5 mmol/L (3.5-5.1); Sodium 133 mmol/L (136-145); Thyroid Stimulating Hormone 5.23 uIU/mL (0.27-4.20); Total Protein 7.2 g/dL (6.6-8.7)
[2025-04-12] MEDS: piperacillin-tazobactam 3.375 GM in sodium chloride 0.9% (plus) 50 ML IV (14:29)
[2025-04-12 14:31] LABS: Osmolality Calculated 287 mOsm/kg (285-295)
[2025-04-12 14:32] LABS: Glucose 11 mg/dL (65-115)
[2025-04-12 14:55] LABS: Lactic Sepsis W/Reflex 1.1 mmol/L (0.5-2.2)
--- NOTE | 2025-04-12 15:36 | PC.NURSE ---
patient temp obtained after getting patient stable and cleaned from soiling himself. patient restrained due to patient pulling cords and amspatients temp 91.6 at time of temp check. placed bear hugger on patient to high temp.
[2025-04-12] MEDS: hydrocortisone 100 mg/2 mL SDV 54.43 MG IVP ×2 (16:44→22:21)
[2025-04-12] MEDS: glucagon 1 mg/mL KIT 1 mL IVP (16:44)
[2025-04-12 16:45] LABS: NT Pro B Type Natriuretic Pept > 70000 pg/mL (0-125)
[2025-04-12] MEDS: LORazepam 2 mg/mL INJ 1 mL 1 MG IVP (17:22)
--- NOTE | 2025-04-12 17:24 | PM.CONSULT ---
Providers/Reason For Consult Consulting Physician/Specialty*: tona rosario md/ telenephrology Reason for Consult*: ESRD care Requesting Physician: Dr Roddy Platt Attending Physician: Kerwin Platt MD Primary Care Provider: Delio Salazar MD History of Present Illness History of Present Illness Mal Gibbs is a 44 year old male history of ESRD on dialysis Thursday and Thursday, heart failure preserved EF, pulmonary hypertension, COPD, hypertension, tobacco use, anemia, severe edema, ascites ,anasarca. Patient missed dialysis. patient was found with AMS and severe hypoglycemia. patient has AMS. renal was called for dialysis. I can not get any further history. Review of Systems Narrative: unable to obtain due to poor MS Medications/Allergies Home Medications ?Medication ?Instructions ?Recorded ?Confirmed ?Last Taken ?Type ferric citrate 210 mg iron tablet 630 mg PO TID 11/03/21 04/12/25 03/24/25 History (Auryxia) aspirin 81 mg tablet,delayed 81 mg PO BEDTIME 02/21/22 04/12/25 03/24/25 History release vit B,C-folic ac 800 mcg-zinc 12.5 1 tab PO QAM 10/01/22 04/12/25 03/24/25 History mg-selen-D3 2,000 unit-vit E tablet (RenaPlex-D) carvedilol 25 mg tablet 50 mg PO Q12H 01/09/23 04/12/25 03/24/25 History sevelamer carbonate 800 mg tablet 1,600 mg PO TID 05/16/24 04/12/25 03/24/25 History albuterol sulfate 90 mcg/actuation 1 puff inhalation Q6H PRN 09/19/24 04/12/25 03/24/25 History aerosol inhaler Shortness Of Breath umeclidinium 62.5 mcg/actuation 1 inh inhalation DAILY 09/19/24 04/12/25 03/24/25 History blister powder for inhalation (Incruse Ellipta) hydromorphone 4 mg tablet 4 mg PO Q6H PRN Pain 10/31/24 04/12/25 03/24/25 History mupirocin 2 % topical ointment 1 applic topical BID #22 grams 01/18/25 04/12/25 03/24/25 Rx (Centany) prednisone 10 mg tablet 40 mg (4 x 10 mg) PO DAILY #16 tabs 02/20/25 04/12/25 03/24/25 Rx amlodipine 10 mg tablet 10 mg PO DAILY 04/12/25 04/12/25 Unknown History famotidine 20 mg tablet 20 mg PO BID 04/12/25 04/12/25 Unknown History hydralazine 100 mg tablet 100 mg PO Q8H 04/12/25 04/12/25 Unknown History pantoprazole 40 mg tablet,delayed 40 mg PO DAILY 04/12/25 04/12/25 Unknown History release sertraline 50 mg tablet 50 mg PO DAILY 04/12/25 04/12/25 Unknown History Allergies Allergy/AdvReac Type Severity Reaction Status Date / Time spironolactone Allergy Intermediate facial Verified 03/10/25 08:21 swelling nifedipine Allergy Unknown ALGY-Swell Verified 03/10/25 08:21 Lip/Tongue/Throat haloperidol (From Haldol) Allergy ADR-Irritab Verified 03/10/25 08:21 le ketorolac Allergy Unknown Verified 03/10/25 08:21 lisinopril Allergy ADR-Swelling Verified 03/10/25 08:21 of the Eye Current Medications Generic Name Dose Route Start Last Admin Trade Name Freq PRN Reason Stop Dose Admin Hydrocortisone Sodium Succinate 54.43 mg 04/12/25 16:45 04/12/25 16:44 Hydrocortisone 100 Mg/2 Ml Sdv 1 mg/kg (54.43 mg) 54.43 mg IVP Administration Q6H ARTEM Dextrose 1,000 mls @ 125 mls/hr 04/12/25 15:00 04/12/25 15:34 D10w IV 125 mls/hr .Q8H ARTEM Administration PFSH Acute PFSH: Medical History (Updated 02/28/25 @ 00:01 by HALEIGH Chan) Abdominal ascites history of intermittent paracentesis, transudative fluid; prior work up has included negative biopsy, ceruloplasmin level normal, low iron, high ferritin, normal TIBC, negative HIV, hepatitis panel negative, JESÚS/SCL 70/double-stranded DNA antibodies negative, Alpha-fetoprotein level unremarkable, nonalcoholic by history, has hepatomegaly and splenomegaly Cirrhosis of liver Epididymitis 06/2022 Dyslipidemia History of home oxygen therapy COPD (chronic obstructive pulmonary disease) Patient under care of multiple providers Umbilical hernia Atherosclerosis of coronary artery Stent and balloon angioplasty to proximal 1 OM branch Congestive heart failure preserved ejection fraction History of cardiovascular stress test 07/[address] [facility] perfusion imaging probably normal, no reversible defects, small fixed defect in apical anterior wall, EF 54%, nonischemic response to stress by EKG criteria Depression Pulmonary hypertension Uses bilevel positive airway pressure (BPAP) ventilation at home History of coronary angiogram 11/2021 - patent stent Inguinal hernia Chronic respiratory failure on home oxygen and bipap Nicotine dependence, cigarettes, with other nicotine-induced disorders Generalized anxiety disorder with panic attacks ESRD on dialysis Chronic abdominal pain COVID 05/25 Hypertensive emergency recurrent episodes Urethral stricture Pulmonary embolism 09/21 CTA inconclusive for very tiny peripheral LEFT lower lobe pulmonary artery sub segmental emboli versus poor opacification. Anemia chronic kidney disease Arteriovenous fistula for hemodialysis in place, secondary Degenerative disc disease, lumbar Hypertension uncontrolled Surgical History History of arteriovenous graft left upper extremity fistula, revision 07/2024 in [place] Stented coronary artery H/O hand surgery Amputation right 2&3 fingers 2017 History of adenoidectomy Family History Other Hypertension Social History Smoking and tobacco/nicotine status: current every day tobacco/nicotine user cigarettes Years cigarettes smoked: 21 [ Other cigarette details: started age 20, currently 0.5ppd ] Quit status (tobacco/nicotine): considering quitting Alcohol intake: never Substance/Drug Use: never Additional social history: Lives with his mother his sister and one of his kids. Patient wants full CODE STATUS as discussed on 10/31/2024 Household members: family Number of children: 3 Current occupational status: disabled Do you think of yourself as: Straight/Heterosexual Vitals/I&O/Wt Last Vital Signs Temp 91.6 F L 04/12/25 14:21 Pulse 92 04/12/25 17:15 Resp 22 H 04/12/25 15:40 BP 156/126 04/12/25 17:15 Pulse Ox 95 04/12/25 17:15 O2 Del Method Nasal Cannula 04/12/25 17:15 O2 Flow Rate 6 04/12/25 16:44 04/12/25 04/12/25 04/12/25 06:59 14:59 22:59 Intake Total 50 / 50 Balance 50 / 50 Weight last 48 hrs Weight 54.431 kg Physical Exam Narrative: VS noted. in bed -hypothermic, using a warming blanket. heent- nc/at neck supple lungs wheezes b/l heart tachycardic abdomen soft, + be extremities + edema examined by RN using A/V equipement Data 04/12/25 13:30 04/12/25 13:30 Micro: Microbiology 04/12/25 14:28 Blood Culture - Preliminary Blood SPECIMEN COLLECTED 04/12/25 14:27 Blood Culture - Preliminary Blood SPECIMEN COLLECTED A&P Assessment and plan 1. ESRD (end stage renal disease) on dialysis: 44 year old male history of ESRD on dialysis Thursday and Thursday, heart failure preserved EF, pulmonary hypertension, COPD, hypertension, tobacco use, anemia, severe edema, ascites ,anasarca. Patient missed dialysis. patient was found with AMS and severe hypoglycemia. patient has AMS. he was found to have a glucose of 11 1. Please check if he is taking insulin 2. ESRD and AMS and severe hypoglycemia- we will perform emergency HD to see if helps w/ glucose and MS 3. respiratory acidosis- monitor after dialysis- hopefully he will have a better respiratory drive -consider BIPAP if hypercapneia does not improve 4. thrombocytopenia- pltsndown to 110- no heparin w/ dilaysis today 5, hyperkalemia- monitor w/ HD 6. elevated BNP- HD now 7. renal dose abx 8. monitor BP- i am concerned that it may drop, as he misses medications at home. seen and examined w/ the aide of METAL TEMPLATE MAKER using A/V equipement -pt is lethargic and confused- unable to consent. we are performing emegency dialysis Plan: see above PDMP PDMP Reviewed: Not Reviewed Consult Attestations Medical Necessity Statement: hypoglycemia, hyperkalemia, AMS, ESRD Time Spent in Patient Care: Greater than 35 minutes (>than 50% of time spent in counselling and/or direct pt care on unit). Coding Level of Care Code Acute Code for Chg Fwd Diagnoses ESRD (end stage renal disease) on dialysis N18.6; Z99.2
--- NOTE | 2025-04-12 17:34 | PM.HP ---
Providers/Chief Complaint Admitting Physician: Kerwin Platt MD Primary Care Provider: Delio Salazar MD Chief Complaint: AMS History of Present Illness Mal Gibbs is a 44 year old male With past medical history of end-stage renal disease on hemodialysis with history of multiple missed dialysis with last dialysis on Thursday. Today is Thursday. He missed his dialysis yesterday. PAST medical history of ascites requiring multiple paracentesis, hypertension, cirrhosis of liver, COPD, congestive heart failure with preserved action fraction, pulmonary hypertension, BiPAP nightly at home, PE was brought to the ER today via EMS because of altered mental status. As per ED staff she was at bedside even complaining of chest pain for last 2 to 3 days but has refused to come to the hospital. Refused to go for his paracentesis earlier this week and dialysis yesterday. Today he was found to be somnolent hence he was brought to the ER. When he came to the ER he was found to have persistent hypoglycemia with blood glucose of 11. He was given multiple doses of dextrose. After which his blood glucose did drop and eventually he was started on dextrose drip. He is currently on 4 L of oxygen supplementation, moaning in pain, incoherent. Chest x-ray on examination concerning for fluid overload with congestive heart failure, possible left upper lobe consolidation. Review of Systems General: Reports: ROS unobtainable due to mental status Medications/Allergies Home Medications ?Medication ?Instructions ?Recorded ?Confirmed ?Last Taken ?Type ferric citrate 210 mg iron tablet 630 mg PO TID 11/03/21 04/12/25 03/24/25 History (Auryxia) aspirin 81 mg tablet,delayed 81 mg PO BEDTIME 02/21/22 04/12/25 03/24/25 History release vit B,C-folic ac 800 mcg-zinc 12.5 1 tab PO QAM 10/01/22 04/12/25 03/24/25 History mg-selen-D3 2,000 unit-vit E tablet (RenaPlex-D) carvedilol 25 mg tablet 50 mg PO Q12H 01/09/23 04/12/25 03/24/25 History sevelamer carbonate 800 mg tablet 1,600 mg PO TID 05/16/24 04/12/25 03/24/25 History albuterol sulfate 90 mcg/actuation 1 puff inhalation Q6H PRN 09/19/24 04/12/25 03/24/25 History aerosol inhaler Shortness Of Breath umeclidinium 62.5 mcg/actuation 1 inh inhalation DAILY 09/19/24 04/12/25 03/24/25 History blister powder for inhalation (Incruse Ellipta) hydromorphone 4 mg tablet 4 mg PO Q6H PRN Pain 10/31/24 04/12/25 03/24/25 History mupirocin 2 % topical ointment 1 applic topical BID #22 grams 01/18/25 04/12/25 03/24/25 Rx ([facility]) prednisone 10 mg tablet 40 mg (4 x 10 mg) PO DAILY #16 tabs 02/20/25 04/12/25 03/24/25 Rx amlodipine 10 mg tablet 10 mg PO DAILY 04/12/25 04/12/25 Unknown History famotidine 20 mg tablet 20 mg PO BID 04/12/25 04/12/25 Unknown History hydralazine 100 mg tablet 100 mg PO Q8H 04/12/25 04/12/25 Unknown History pantoprazole 40 mg tablet,delayed 40 mg PO DAILY 04/12/25 04/12/25 Unknown History release sertraline 50 mg tablet 50 mg PO DAILY 04/12/25 04/12/25 Unknown History Allergies Allergy/AdvReac Type Severity Reaction Status Date / Time spironolactone Allergy Intermediate facial Verified 03/10/25 08:21 swelling nifedipine Allergy Unknown ALGY-Swell Verified 03/10/25 08:21 Lip/Tongue/Throat haloperidol (From Haldol) Allergy ADR-Irritab Verified 03/10/25 08:21 le ketorolac Allergy Unknown Verified 03/10/25 08:21 lisinopril Allergy ADR-Swelling Verified 03/10/25 08:21 of the Eye PFSH Acute PFSH: Medical History (Updated 04/12/25 @ 18:42 by Dayana Nunez MD) Abdominal ascites history of intermittent paracentesis, transudative fluid; prior work up has included negative biopsy, ceruloplasmin level normal, low iron, high ferritin, normal TIBC, negative HIV, hepatitis panel negative, JESÚS/SCL 70/double-stranded DNA antibodies negative, Alpha-fetoprotein level unremarkable, nonalcoholic by history, has hepatomegaly and splenomegaly Cirrhosis of liver Epididymitis 06/2022 Dyslipidemia History of home oxygen therapy COPD (chronic obstructive pulmonary disease) Patient under care of multiple providers Umbilical hernia Atherosclerosis of coronary artery Stent and balloon angioplasty to proximal 1 OM branch Congestive heart failure preserved ejection fraction History of cardiovascular stress test 07/2022 at [facility] perfusion imaging probably normal, no reversible defects, small fixed defect in apical anterior wall, EF 54%, nonischemic response to stress by EKG criteria Depression Pulmonary hypertension Uses bilevel positive airway pressure (BPAP) ventilation at home History of coronary angiogram 11/2021 - patent stent Inguinal hernia Chronic respiratory failure on home oxygen and bipap Nicotine dependence, cigarettes, with other nicotine-induced disorders Generalized anxiety disorder with panic attacks ESRD on dialysis Chronic abdominal pain COVID 05/25 Hypertensive emergency recurrent episodes Urethral stricture Pulmonary embolism 09/21 CTA inconclusive for very tiny peripheral LEFT lower lobe pulmonary artery sub segmental emboli versus poor opacification. Anemia chronic kidney disease Arteriovenous fistula for hemodialysis in place, secondary Degenerative disc disease, lumbar Hypertension uncontrolled Surgical History History of arteriovenous graft left upper extremity fistula, revision 07/2024 in [place] Stented coronary artery H/O hand surgery Amputation right 2&3 fingers 2017 History of adenoidectomy Family History Other Hypertension Social History Smoking and tobacco/nicotine status: current every day tobacco/nicotine user cigarettes Years cigarettes smoked: 21 [ Other cigarette details: started age 20, currently 0.5ppd ] Quit status (tobacco/nicotine): considering quitting Alcohol intake: never Substance/Drug Use: never Additional social history: Lives with his mother his sister and one of his kids. Patient wants full CODE STATUS as discussed on 10/31/2024 Household members: family Number of children: 3 Current occupational status: disabled Do you think of yourself as: Straight/Heterosexual Vitals/I&O/Wt Last Vital Signs Temp 91.6 F L 04/12/25 14:21 Pulse 92 04/12/25 17:15 Resp 22 H 04/12/25 15:40 BP 156/126 04/12/25 17:15 Pulse Ox 95 12/10/25 17:15 O2 Del Method Nasal Cannula 04/12/25 17:15 O2 Flow Rate 6 04/12/25 16:44 04/12/25 04/12/25 04/12/25 06:59 14:59 22:59 Intake Total 50 / 50 Balance 50 / 50 Weight last 48 hrs Weight 54.431 kg Physical Exam Narrative: General: Moaning in pain, altered, GCS: E1, M1, levo 1, maintaining airway HEENT: PERRLA, pupils bilaterally equal and reactive Chest: Bilateral bronchial breath sounds all occasionally lung cantu, coarse crackles all over lung cantu left more than right, upper more than lower CVS: S1-S2 regular, no murmurs, no tachycardia, no gallops, no rubs Abdomen: Soft, nontender, no organomegaly, bowel sounds present Neuro: No focal deficits, no facial deformity, moving all limbs Data 04/13/25 07:57 04/13/25 07:57 Micro: Microbiology 04/12/25 14:28 Blood Culture - Preliminary Blood SPECIMEN COLLECTED 04/12/25 14:27 Blood Culture - Preliminary Blood SPECIMEN COLLECTED A&P Assessment and plan 1. End stage renal disease on dialysis: 2. Hypoglycemia: 3. Hypothermia: 4. Acidosis: 5. Acute on chronic heart failure with preserved ejection fraction (HFpEF): 6. Benign hypertension: 7. Cirrhosis of liver: 8. Abdominal ascites: 9. Sepsis: 10. Pneumonia: 11. Hyperkalemia: Plan: Sepsis: SIRS: Tachycardic, hypothermia, Leukocytosis Source: Possible pneumonia End organ damage: Acute infectious encephalopathy, persistent hypoglycemia Lactic acid within normal limits Cannot give excessive fluid given concerns for fluid overload Monitor blood pressures. Keep mean artery pressure 65 mmHg. Blood culture, urine culture, MRSA swab, trend procalcitonin, check bacterial antigen. Empirically start IV vancomycin and Zosyn for now. End-stage renal disease on hemodialysis: Nephrology consulted. Saturated with metabolic acidosis, hyperkalemia, uremia. Plan for emergent dialysis. Persistent hypoglycemia: Could be in setting of sepsis. Cannot rule out excessive insulin intake. Check drug screen, C-peptide. Dextrose at 75 cc/h. Cannot give higher dose given concern for fluid overload. Glucagon 1 dose. Start on hydrocortisone 1 mg/kg body weight Q6 hourly. Check blood glucose every 1 hour. Hypoglycemia protocol. Ascites: Cannot rule out SBP. Will consult for paracentesis and follow-up on fluid studies. History of PE. Chest pain: As per family ember has been having chest pain for last 3 days. History of CAD. Troponin cycled. Depending on troponin cycle can plan to start on heparin drip. History of chronic pain medication: Takes hydromorphone 1 mg every 4 hours as needed at home. More frequently as per family member. Start on Dilaudid 0.5 every 6 hours as needed for now. Hypothermia: Warm blanket for now. Hypertension plan goal blood pressure less than 140/90 mmHg. IV hydralazine 10 mg every 6 hours as needed for systolic of more than 160 Nuha. Plan plan for clonidine patch. Altered mental status: Could be in setting of severe hypoglycemia, sepsis, hypothermia. Patient was severely hypoglycemic on admission. Cannot rule out anoxic brain injury. CT head awaited. Given concern for sepsis, chest pain will plan for CTA chest, CT abdomen pelvis with contrast. Echo status: Discussed in detail with patient's DPOA/daughter at bedside. He had wished to daughter for no chest compressions or mechanical ventilation. DNR/DNI. NPO. Heparin 5012 hourly for DVT prophylaxis Protonix for PUD prophylaxis PDMP PDMP Reviewed: Not Reviewed Attestations Medical Necessity Statement*: Admission for more than 2 midnights for management of sepsis, persistent hypoglycemia, end-stage disease on hemodialysis, missed dialysis, somnolence Critical Care Time: The high probability of a clinically significant, sudden or life threatening deterioration of the patient's [endocrine, ID, renal] system(s) required my full and direct attention, intervention and personal management. The critical care time is as shown. This time is in addition to time spent performing any reported procedures but includes the following: [x] Data and vital sign review and interpretation [x] Patient assessment, examination and intervention [x] Documentation [x] Medication orders and management Critical Care Time (min): 70 Diagnoses End stage renal disease on dialysis N18.6; Z99.2 Hypoglycemia E16.2 Hypothermia T68.XXXA Acidosis E87.20 Acute on chronic heart failure with preserved ejection fraction (HFpEF) I50.33 Benign hypertension I10 Cirrhosis of liver K74.60 Abdominal ascites R18.8 Sepsis A41.9 Pneumonia J18.9 Hyperkalemia E87.5
--- NOTE | 2025-04-12 17:37 | CTR_ITS ---
PROCEDURE INFORMATION: Exam: CTA Chest With Contrast Exam date and time: 04/12/2025 6:28 PM Age: 44 years old Clinical indication: Other: Resp failure, h/o pe TECHNIQUE: Imaging protocol: Computed tomographic angiography of the chest with contrast. Exam focused on the arteries. 3D rendering (Not supervised by radiologist): MIP and/or 3D reconstructed images were created by the technologist. Radiation optimization: All CT scans at this facility use at least one of these dose optimization techniques: automated exposure control; mA and/or kV adjustment per patient size (includes targeted exams where dose is matched to clinical indication); or iterative reconstruction. Contrast material: [id number]; Contrast volume: 100 ml; Contrast route: INTRAVENOUS (IV); COMPARISON: CT angio chest PE protcl [id number] 03/14/2022 5:29 PM RADIATION DOSE METRICS: Total DLP (mGy-cm): 513.5 FINDINGS: Pulmonary arteries: No pulmonary emboli. Dilated main pulmonary artery which can be seen in the setting of pulmonary arterial hypertension. Aorta: Nonaneurysmal ascending thoracic aorta with systemic aortic and coronary artery plaque. Right IJ central venous catheter with the tip in the lower SVC near the cavoatrial junction. Perhaps severe narrowing of the lower right brachiocephalic vein. Lungs: Bilateral atelectasis. Pulmonary calcifications are seen. Mild septal lines with ground-glass opacities and attenuation suggesting a component of pulmonary edema. Pulmonary calcifications. Pleural spaces: Moderate bilateral pleural effusions. Heart: Cardiomegaly.Mitral annular calcification. Moderate pericardial effusion. Thrombus in the left atrial appendage is not excluded. Lymph nodes: Some prominent likely reactive thoracic lymph nodes are seen. Additionally, some calcified thoracic lymph nodes are suggested. Bones/joints: Unremarkable. No acute fracture. Calcific focus is again seen adjacent to the lower thoracic spine on image 455 of series 5. Soft tissues: Anasarca. Gynecomastia. CT/CT angio chest PE protcl [id number] IMPRESSION: No pulmonary embolus. Pleural effusions with atelectasis and pulmonary edema. Cardiomegaly. Thrombus in the left atrial appendage may be present. Pericardial effusion.
--- NOTE | 2025-04-12 17:38 | CTR_ITS ---
PROCEDURE INFORMATION: Exam: CT Abdomen And Pelvis With Contrast Exam date and time: 04/12/2025 6:28 PM Age: 44 years old Clinical indication: Other: Sepsis; Additional info: Septic TECHNIQUE: Imaging protocol: Computed tomography of the abdomen and pelvis with contrast. Radiation optimization: All CT scans at this facility use at least one of these dose optimization techniques: automated exposure control; mA and/or kV adjustment per patient size (includes targeted exams where dose is matched to clinical indication); or iterative reconstruction. Contrast material: [id number]; Contrast volume: 100 ml; Contrast route: INTRAVENOUS (IV); COMPARISON: CT abdomen pelvis w con* [id number] 10/15/2023 10:19 AM RADIATION DOSE METRICS: Total DLP (mGy-cm): 842 FINDINGS: Lungs: Moderate effusions at the lung bases with associated compressive atelectasis in the lower lobes with superimposed infection not excluded. Heart: Moderate to severe pericardial effusion. Liver: Nodular appearance of the liver, nonspecific although compatible with cirrhosis. Gallbladder and biliary ducts: No definite radiopaque gallstones. Pancreas: Normal. No ductal dilation. Spleen: Normal. No splenomegaly. Adrenal glands: Normal. No mass. Kidneys and ureters: Bilateral renal atrophy. Stomach and bowel: Unremarkable. No obstruction. No mucosal thickening. Appendix: No evidence of appendicitis. Intraperitoneal space: Moderate to severe ascites. Can not exclude SBP. Vasculature: Aortic and coronary atherosclerosis. Recanalized umbilical vein. Lymph nodes: Unremarkable. No enlarged lymph nodes. Urinary bladder: Unremarkable as visualized. Reproductive: Unremarkable as visualized. Bones/joints: Unremarkable. No acute fracture. Soft tissues: Umbilical hernia protruding outward with ascitic fluid. CT/CT abdomen pelvis w con* [id number] IMPRESSION: 1. Moderate effusions at the lung bases with associated compressive atelectasis in the lower lobes with superimposed infection not excluded. 2. Moderate to severe pericardial effusion. 3. Moderate to severe ascites. Can not exclude SBP.
--- NOTE | 2025-04-12 17:51 | ECG_ITS ---
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 Measurements Intervals [place] Rate: 94 P: 0 IL: 0 QRS: 113 QRSD: 133 T: 122 QT: 376 QTc: 472 Interpretive Statements ATRIAL FIBRILLATION INTRAVENTRICULAR CONDUCTION DELAY [130+ ms QRS DURATION] POSSIBLE RIGHT VENTRICULAR HYPERTROPHY [SOME/ALL OF: PROMINENT R IN V1, LATE TRANSITION, RAD, YULIYA, SSS] LATERAL MYOCARDIAL INFARCTION , OF INDETERMINATE AGE [40+ ms Q WAVE AND/OR ST/T ABNORMALITY IN I/aVL/V5/V6] Compared to ECG 04/12/2025 13:46:08 No significant changes Electronically Signed On 04-13-2025 17:27:01 ENGINEERING LABORATORY TECHNICIAN by Ruba Hussein M.D. [id number]
[2025-04-12 18:08] LABS: Lactic Sepsis W/Reflex 1.8 mmol/L (0.5-2.2)
[2025-04-12] MEDS: iohexol 350 mg/mL 500 mL Btl (per mL) IV (18:43)
--- NOTE | 2025-04-12 18:53 | ECG_ITS ---
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 Measurements Intervals [place] Rate: 102 P: 0 MS: 0 QRS: 102 QRSD: 139 T: 196 QT: 420 QTc: 549 Interpretive Statements ATRIAL FIBRILLATION WITH RAPID VENTRICULAR RESPONSE WITH ABERRANT CONDUCTION OR VENTRICULAR PREMATURE COMPLEXES RIGHT AXIS DEVIATION [QRS AXIS > 100] INTRAVENTRICULAR CONDUCTION DELAY [130+ ms QRS DURATION] Compared to ECG 04/12/2025 17:51:58 Ventricular premature complex(es) now present Aberrant conduction of supraventricular beat(s) now present Right-axis deviation now present Myocardial infarct finding no longer present Baseline artifacts, need to repeat Electronically Signed On 04-13-2025 17:43:36 IT MANAGER by Ruba Hussein M.D. [id number] [id number]
[2025-04-12] MEDS: HYDROmorphone 0.5 MG/0.5 ML INJ 0.4 MG IVP (18:58)
--- NOTE | 2025-04-12 19:03 | PHA.VACGOAL ---
Vancomycin Goal - Goal Vancomycin Goal:: 15-20 mg/L Vancomycin Indication:: Pneumonia - Therapy Current therapy:: Pip/Tazo Day of therpy:: Day []of [] . Actual body weight (kg): 120 lb - Data Labs: WBC 6.46 10^3/uL (3.29-11.43) 04/12/25 13:30 RBC 3.82 10^6/uL (3.85-5.65) L 04/12/25 13:30 Hgb 10.80 g/dL (11.27-16.99) L 04/12/25 13:30 Hct 34.9 % (37-53) L 04/12/25 13:30 MCV 91.4 fl (82-101) 04/12/25 13:30 MCH 28.3 pg (27-33) 04/12/25 13:30 MCHC 30.9 g/dL (30-55) 04/12/25 13:30 RDW 17.3 % (12.1-15.1) H 04/12/25 13:30 Sodium 133 mmol/L (136-145) L 04/12/25 13:30 Potassium 5.5 mmol/L (3.5-5.1) H 04/12/25 13:30 Chloride 97 mmol/L (98-107) L 04/12/25 13:30 Carbon Dioxide 19 mmol/L (22-29) L 04/12/25 13:30 Anion Gap 22.5 (5-19) H 04/12/25 13:30 BUN 57 mg/dL (6-20) H 04/12/25 13:30 Creatinine 6.2 mg/dL (0.7-1.2) H* 04/12/25 13:30 GFR Calculation 10.0 mL/min (90-130) L 04/12/25 13:30 Last dialysis session:: Last session (planning emergent dialysis tonight) Treatment plan:: new consult Regimen:: PATIENT PLANNED TO RECEIVE EMERGENT DIALYSIS TONIGHT. 1000 MG VANCOMYCIN WAS GIVEN IN ER. WILL PLAN TO DRAW AM TROUGH TO DETERMINE LEVEL IS THERAPEUTIC. CURRENT DIALYSIS SCHEDULE UNKNOWN. WILL CONTINUE TO MONITOR DAILY.
[2025-04-12] MEDS: hyDRALAzine 20 mg/mL INJ 1 mL 10 MG IVP ×2 (19:15→23:04)
[2025-04-12] MEDS: pantoprazole 40 mg SDV IVP (19:16)
[2025-04-12] MEDS: heparin 5,000 unit/mL INJ 1 mL 5000 UNIT SUBCUT (19:18)
[2025-04-12 19:41] LABS: Troponin(5th) Baseline 105 ng/L (0-15)
[2025-04-12 19:42] LABS: Acetaminophen < 5.0 ug/mL (10-30); Alcohol Level < 10 mg/dL (0-10); Salicylate < 0.3 mg/dL (3-10)
[2025-04-12 20:09] LABS: Procalcitonin 57.25 ng/mL (0-0.5)
[2025-04-12] MEDS: heparin, porcine 1,000 unit/mL INJ 10 mL 2000 UNIT HE (20:10)
[2025-04-12 21:15] LABS: Estmated Average Glucose 71; Hemoglobin A1C 4.1 % (4.0-6.0)
[2025-04-12 21:25] LABS: MRSA PCR OZH (swab) NOT DETECTED (Negative)
[2025-04-12] MEDS: metoprolol tartrate 1 mg/1 mL SDV 5 mL 5 MG IVP (22:15)
[2025-04-12 22:55] LABS: ABG PCO2 42.1 mmHg (35-45); ABG PH Result 7.36 (7.35-7.45); Alveolar-Arterial Oxygen Gradi 21.8 mmHg (5-10); Arterial Blood Gas Hematocrit 35.1 % (42-52); Blood Gas Allen Test Pos; Blood Gas LPM 5.0 %; Blood Gas Operator Identificat BD; Blood Gas Sample Site Brachial, right; Blood Gas Sample Type Arterial; Carboxyhemoglobin 1.0 %THgb (0.4-20.1); Glucose Level-ABG 86.0 mg/dL (70-115); HCO3 ABG 23.5 mmol/L (22-26); Ionized Calcium Level - ABG 1.3 mmol/L (1.1-1.4); Methemoglobin 1.1 % (0.4-1.5); Oxygen Saturation ABG 92.2; PO2 ABG 66.1 mmHg (80.0-100.0); PO2 FiO2 Ratio Arterial Blood 165; Potassium Level - ABG 4.8 mmol/L (3.5-5.0); Sodium Level - ABG 134.0 mmol/L (131-143)
[2025-04-12 23:16] LABS: Anion Gap 18.9 (5-19); Blood Urea Nitrogen 39 mg/dL (6-20); Calcium 9.5 mg/dL (8.5-10.5); Carbon Dioxide 22 mmol/L (22-29); Chloride 98 mmol/L (98-107); Glucose 81 mg/dL (65-115); Magnesium 1.9 mg/dL (1.7-2.3); Osmolality Calculated 286 mOsm/kg (285-295); Potassium 4.9 mmol/L (3.5-5.1); Sodium 134 mmol/L (136-145)
[2025-04-12] MEDS: labetalol 5 mg/mL SDV 20mL 40 MG IVP (23:33)
--- NOTE | 2025-04-12 23:33 | ECG_ITS ---
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 Measurements Intervals [place] Rate: 83 P: 0 SC: 0 QRS: 109 QRSD: 133 T: 121 QT: 469 QTc: 554 Interpretive Statements ATRIAL FIBRILLATION RIGHT AXIS DEVIATION [QRS AXIS > 100] INTRAVENTRICULAR CONDUCTION DELAY [130+ ms QRS DURATION] SEPTAL MYOCARDIAL INFARCTION , OF INDETERMINATE AGE [40+ ms Q WAVE IN V1/V2] LATERAL MYOCARDIAL INFARCTION , PROBABLY RECENT [40+ ms Q WAVE AND/OR ST/T ABNORMALITY IN I/aVL/V5/V6] ACUTE OR Compared to ECG 04/12/2025 19:40:52 Myocardial infarct finding now present Ventricular premature complex(es) no longer present Aberrant conduction of supraventricular beat(s) no longer present Electronically Signed On 04-13-2025 17:40:53 SHOP ESTIMATOR by Ruba Hussein M.D. [id number] [id number]
[2025-04-13] VITALS (78 sets, daily range): BP systolic 119–254; BP diastolic 57–197; PULSE 70–118; RESP 8–31; TEMP 36.1; O2SAT 81–99; BMI 21.7
[2025-04-13 00:17] LABS: Troponin 5 6HR Delta -4.4 ng/L (0-12)
[2025-04-13 00:18] LABS: Troponin 5 6HR 100.6 ng/L (0-15)
[2025-04-13 00:36] LABS: Hepatitis B Surface Antigen Non-Reactive (Nonreactive)
--- NOTE | 2025-04-13 02:19 | PM.ACPR ---
Procedure/Consent Consent: Consent for Procedure: Consent obtained from other (indicate) (Jo Michaels mother), Risks & Benefits reviewed and Agrees to proceed with procedure (altered mental status possible infection) Acute Procedures Paracentesis: Time out performed: Yes Indication: possible spontaneous bacterial peritonitis (diagnostic and therapeutic. antibiotics started already. avoid delay) Procedure: therapeutic paracentesis Location: LLQ Local anesthetic used: lidocaine 1% Amount of anesthesia used (ml): 3 Bedside ultrasound used: yes, Ascites confirmed and location marked Preparation: sterile prep and drape and 11 blade used to make luis fernando in skin Amount of fluid obtained (ml): 4,917 Fluid: bloody Size of needle used: 23 (and 6 estonian thoracath) Post procedure exam: normal BP, normal HR and other (cv irregular lungs clear but diminished left base) Patient tolerated procedure: well and no complications Complications: none Additional comments: fluid thin red tinged. sent to lab for chemistry, cell count and gram stain culture x 17 cc in 3 tubes the 4900 cc in vacutaners discarded. Did not send for cytology abd prep with chloraprep x 2 then procedure then after drainage catheter pulled and bandage in place no air returned. No bowel injury
[2025-04-13 02:48] LABS: Body Fluid Polynuclear #Cells 0.015; Monocytes # Body Fluid 0.087; Mononuclear WBC Body Fluid % 85.300 %; Polynuclear WBC Body Fluid % 14.700 %
[2025-04-13] MEDS: piperacillin-tazobactam 2.25 GM in sodium chloride 0.9% (plus) 50 ML IV ×2 (02:51→13:59)
[2025-04-13 02:53] LABS: Apprearance, Body Fluid CLOUDY; Color, Body Fluid OTHER
[2025-04-13 03:02] LABS: pH Peritoneal Fluid 8.0
[2025-04-13 03:04] LABS: Fluid Laterality Left Lower
[2025-04-13] MEDS: norepinephrine 4 MG/250 ML BAG 7.5 MG IV (03:39)
--- NOTE | 2025-04-13 03:55 | PC.NURSE ---
Addendum entered by Eloisa Cordova RN 04/13/25 05:45: Patch was 0.3 mg, not 0.4. Original Note: Clonidine 0.4 mg patch removed at 0350 on 04/13/25 due to hypotension per Dr Mann. Patient does NOT have clonidine patch on at this time.
[2025-04-13] MEDS: hyDRALAzine 20 mg/mL INJ 1 mL 10 MG IVP (04:35)
[2025-04-13] MEDS: HYDROmorphone 0.5 MG/0.5 ML INJ IVP ×2 (04:36→16:54)
[2025-04-13] MEDS: hydrocortisone 100 mg/2 mL SDV 54.43 MG IVP ×3 (05:00→16:30)
[2025-04-13] MEDS: DILTIAZEM HCL/D5W 125 MG/125 ML BAG IV (05:56)
[2025-04-13] MEDS: heparin 5,000 unit/mL INJ 1 mL 5000 UNIT SUBCUT (06:00)
[2025-04-13 08:26] LABS: Hematocrit 29.6 % (37-53); Hemoglobin 9.50 g/dL (11.27-16.99); Mean Corpuscular HGB Conc 32.1 g/dL (30-55); Mean Corpuscular Hemoglobin 28.6 pg (27-33); Mean Corpuscular Volume 89.2 fl (82-101); Nucleated Red Blood Cells % 0 %; Platelet Count 121 10^3/cmm (157-399); Red Blood Count 3.32 10^6/uL (3.85-5.65); White Blood Count 10.50 10^3/uL (3.29-11.43)
--- NOTE | 2025-04-13 08:42 | PC.NURSE ---
check pt no purposeful verbal response mumbling noted at this time any stimuli by withdrawing , remains on bipap and warming blanket on at this time lab work pending ,
[2025-04-13 08:50] LABS: INR 1.96 (0.8-1.2); Prothrombin Time 23.50 SECONDS (12.1-14.9)
[2025-04-13 08:55] LABS: Alanine Aminotransferase 23 U/L (0-41); Albumin Level 2.6 g/dL (3.5-5.2); Alkaline Phosphatase 194 U/L (40-130); Anion Gap 18.7 (5-19); Aspartate Amino Transferase 70 U/L (0-40); Blood Urea Nitrogen 44 mg/dL (6-20); Calcium 9.2 mg/dL (8.5-10.5); Carbon Dioxide 22 mmol/L (22-29); Chloride 95 mmol/L (98-107); Globulin 3.1 g/dL (1.3-4.6); Glucose 105 mg/dL (65-115); Magnesium 1.8 mg/dL (1.7-2.3); Osmolality Calculated 282 mOsm/kg (285-295); Potassium 5.7 mmol/L (3.5-5.1); Sodium 130 mmol/L (136-145); Total Protein 5.7 g/dL (6.6-8.7)
[2025-04-13 09:12] LABS: ABG PCO2 34.5 mmHg (35-45); ABG PH Result 7.42 (7.35-7.45); Alveolar-Arterial Oxygen Gradi 19.5 mmHg (5-10); Arterial Blood Gas Hematocrit 32.1 % (42-52); Blood Gas Allen Test Pos; Blood Gas Operator Identificat GD; Blood Gas Sample Site Radial, right; Blood Gas Sample Type Arterial; Carboxyhemoglobin 1.2 %THgb (0.4-20.1); Glucose Level-ABG 99.0 mg/dL (70-115); HCO3 ABG 22.5 mmol/L (22-26); Ionized Calcium Level - ABG 1.3 mmol/L (1.1-1.4); Methemoglobin 0.5 % (0.4-1.5); Oxygen Saturation ABG 97.7; PO2 ABG 91.2 mmHg (80.0-100.0); PO2 FiO2 Ratio Arterial Blood 228; Potassium Level - ABG 5.4 mmol/L (3.5-5.0); Sodium Level - ABG 131.0 mmol/L (131-143)
[2025-04-13 09:19] LABS: Procalcitonin > 100.00 ng/mL (0-0.5)
[2025-04-13] MEDS: glucagon 1 mg/mL KIT 1 mL IM (09:19)
[2025-04-13] MEDS: metoprolol tartrate 1 mg/1 mL SDV 5 mL 5 MG IVP ×2 (09:31→15:34)
--- NOTE | 2025-04-13 10:00 | CT_ITS ---
WS: [id number] CT head wo con* [id number] REASON FOR EXAM: cocern for anoxic brain injury, AMS IV CONTRAST ADMINISTERED: None. TECHNIQUE: Multiple axial images without intravenous contrast enhancement. Coronal and sagittal reconstructions. COMPARISON: CT brain 04/12/2025 at 4:[address] brain 08/13/2024 TOTAL EXAM DLP: 1197.[address] scans at [facility] use at least one of these dose optimization techniques: automated exposure control; mA and/or kV adjustment per patient size (includes targeted exams where dose is matched to clinical indication); or iterative reconstruction. FINDINGS: The examination is unchanged compared to the previous study of 4:55 p.m. 04/12/2025. Calcification in the left caudate nucleus with presumed adjacent gliosis. No form of intracranial hemorrhage. Pronounced diffuse low-attenuation of the ki with relatively normal-appearing medulla. CT/CT head wo con* [id number] IMPRESSION: Stable abnormal brain as above. The supratentorial findings are considered silver miner kyle and stable. The abnormality in the ki is of uncertain chronicity but most likely, based on the clinical history, is acute or subacute. The abnormality in the ki can be associated with an encephalopathy syndrome s uch as posterior reversible encephalopathy, central pontine myelolysis, or hype rtensive encephalopathy.
--- NOTE | 2025-04-13 10:02 | P.PN_ITS ---
Subjective 2 Subjective: Patient was seen and examined. Still confused altered not following commands. Not able to get a history. Medications: Reviewed: Yes Medication Review Details: Current Medications Acetaminophen (Acetaminophen 325 Mg Tablet) 650 mg PO Q6H PRN PRN Reason: Mild/Mod Pain Or Temp >/= 101 Clonidine HCl (Clonidine 0.1 Mg/24 Hr Patch) 1 patch TRANSDERMA Q7D [facility] Last Admin: 04/13/25 08:14 Dose: 1 patch Docusate Sodium (Docusate Sodium 100 Mg Capsule) 100 mg PO BID [facility] Last Admin: 04/13/25 03:27 Dose: Not Given Heparin Sodium (Porcine) (Heparin 5,000 Unit/Ml Inj 1 Ml) 0 unit IVP PRN PRN; Protocol PRN Reason: Heparin Weight Based Protocol -Subsequent Bolus Hydralazine HCl (Hydralazine 20 Mg/Ml Inj 1 Ml) 10 mg IVP Q4H PRN PRN Reason: SBP More than 160 mmhg Last Admin: 04/13/25 04:35 Dose: 10 mg Hydrocortisone Sodium Succinate (Hydrocortisone 100 Mg/2 Ml Sdv) 54.43 mg 1 mg/kg (54.43 mg) IVP Q6H [facility] Last Admin: 04/13/25 05:00 Dose: 54.43 mg Hydromorphone HCl (Hydromorphone 0.5 Mg/0.5 Ml Inj) 0.5 mg IVP Q4H PRN PRN Reason: pain scale 6-10 Last Admin: 04/13/25 04:36 Dose: 0.5 mg Dextrose (D10w) 250 mls @ 1,000 mls/hr IV PRN PRN PRN Reason: HYPOGLYCEMIA Dextrose (D10w) 250 mls @ 1,000 mls/hr IV PRN PRN PRN Reason: HYPOGLYCEMIA Dextrose (D10w) 1,000 mls @ 125 mls/hr IV .Q8H [facility] Last Admin: 04/13/25 05:39 Dose: 125 mls/hr Dextrose (D10w) 250 mls @ 1,000 mls/hr IV PRN PRN PRN Reason: HYPOGLYCEMIA Dextrose (D5w) 500 mls @ 0 mls/hr IV ONCE PRN; Protocol PRN Reason: Adult Acute Hypoglycemia Prot Dextrose (D10w) 125 mls @ 750 mls/hr IV PRN PRN; Protocol PRN Reason: Adult Acute Hypoglycemia Nursing Protocol Dextrose (D10w) 250 mls @ 1,000 mls/hr IV PRN PRN; Protocol PRN Reason: Adult Acute Hypoglycemia Nursing Protocol Piperacillin Sod/Tazobactam (Sod 2.25 gm/ Sodium Chloride) 50 mls @ 100 mls/hr IV Q12H [facility] Last Infusion: 04/13/25 03:26 Dose: Infused Norepinephrine Bitartrate (Levophed) 4 mg in 250 mls @ 0 mls/hr IV .Q0M [facility]; Protocol Last Titration: 04/13/25 04:45 Dose: 0 mcg/min, 0 mls/hr DILTIAZEM HCL/D5W (Cardizem) 125 mg in 125 mls @ 0 mls/hr IV .Q0M [facility]; Protocol Last Admin: 04/13/25 05:56 Dose: 5 mg/hr, 5 mls/hr Heparin Sodium/Sodium Chloride (Heparin Drip) 25,000 unit in 500 mls @ 17.952 mls/hr IV CONT ARTEM; Protocol Lactulose (Lactulose Oral Liq 20 Gm/30 Ml Udc) 10 gm PO DAILY PRN; Protocol PRN Reason: Constipation (see protocol) Magnesium Hydroxide (Magnesium Hydroxide 30 Ml Udc) 30 ml PO DAILY PRN; Protocol PRN Reason: Constipation (see protocol) Metoprolol Tartrate (Metoprolol Tartrate 1 Mg/1 Ml Sdv 5 Ml) 5 mg IVP Q6H [facility] Last Admin: 04/13/25 09:31 Dose: 5 mg Ondansetron HCl (Ondansetron 2 Mg/Ml Sdv 2 Ml) 4 mg IVP Q6H PRN PRN Reason: vomiting, or N/V if npo Pantoprazole Sodium (Pantoprazole 40 Mg Sdv) 40 mg IVP Q24H [facility] Last Admin: 04/12/25 19:16 Dose: 40 mg Vancomycin HCl (Vancomycin 1,000 Mg Sdv (Pharmacy Mix)) 0 mg XX PRN PRN PRN Reason: Pharmacy to Dose Vitals/I&O/Wt Last Vital Signs Temp 97.0 F L 04/13/25 05:01 Pulse 96 04/13/25 09:00 Resp 23 H 04/13/25 09:00 BP 137/112 04/13/25 09:00 Pulse Ox 97 04/13/25 08:03 O2 Del Method Nasal Cannula 04/12/25 18:55 O2 Flow Rate 6 04/12/25 16:44 FiO2 40 04/13/25 08:03 04/12/25 04/13/25 04/13/25 22:59 06:59 14:59 Intake Total 1654.167 / 1654.167 964.50 / 2618.667 Output Total 2513 / 2513 Balance -858.833 / -858.833 964.50 / 105.667 Weight last 48 hrs Weight 74.843 kg Weight 80.5 kg Weight 54.567 kg Weight 54.431 kg Physical Exam 2 Narrative: VS noted. in bed. heent- nc/at neck supple lungs wheezes b/l heart regular positive murmur abdomen soft, + bs, nontender extremities + edema Please note the patient has an upper extremity fistula and a right anterior chest wall permacath. examined by RN using A/V equipement Urinary Catheter Management: Guzman: Cath Placed During This Visit: yes Reason for Continuing Indwelling Catheter: Accurate Measurement of Urinary Output in Critically Ill Patients Urinary Catheter Date of Insertion: 04/12/25 Urinary Catheter Time of Insertion: 20:45 Data 04/13/25 07:57 04/13/25 07:57 Micro: Microbiology 04/12/25 14:28 Blood Culture - Preliminary Blood SPECIMEN COLLECTED 04/12/25 14:27 Blood Culture - Preliminary Blood SPECIMEN COLLECTED A&P Assessment and plan 1. ESRD (end stage renal disease) on dialysis: 44 year old male history of ESRD on dialysis Thursday and Thursday, heart failure preserved EF, pulmonary hypertension, COPD, hypertension, tobacco use, anemia, severe edema, ascites ,anasarca. Patient missed dialysis. patient was found with AMS and severe hypoglycemia. patient has AMS. he was found to have a glucose of 11 1. Hypoglycemia glucose improving however still low. Question if the patient developed hypoglycemic induced brain damage. 2. ESRD and AMS -repeat dialysis today for 3 hours on a 2K bath. If patient is eating please give a phosphorus binder. 4. thrombocytopenia- plts improved to 121-can use low-dose heparin with dialysis 5, hyperkalemia- monitor w/ HD 6. Metabolic acidosis and respiratory acidosis have improved. Patient currently has a mild respiratory alkalosis with a pH of 742 pCO2 34. Bicarbonate is 23. 7. Volume overload and hypertension remove fluids on dialysis 8. renal dose abx 9. monitor BP- i am concerned that it may drop, as he misses medications at home. seen and examined w/ the aide of LE[employer]IST using A/V equipement -pt remains lethargic and confused. Plan: see above PDMP PDMP Reviewed: Not Reviewed Attestations 2 Medical Necessity Statement*: End-stage renal disease altered mental status hypoglycemia hyperkalemia. Time Spent in Patient Care: Greater than 35 minutes (>than 50% of time spent in counselling and/or direct pt care on unit) . Coding Level of Care Code Acute Code for [facility] Fwd Diagnoses ESRD (end stage renal disease) on dialysis N18.6; Z99.2
[2025-04-13] MEDS: heparin drip 25,000 UNIT/500 ML PREMIX 17.95 UNIT IV (10:20)
[2025-04-13] MEDS: heparin 5,000 unit/mL INJ 1 mL IVP (10:21)
--- NOTE | 2025-04-13 13:27 | P.PN_ITS ---
Vitals/I&O/Wt Last Vital Signs Temp 97.0 F L 04/13/25 05:01 Pulse 87 04/13/25 12:00 Resp 15 04/13/25 12:00 BP 144/107 04/13/25 12:00 Pulse Ox 96 04/13/25 12:00 O2 Del Method Nasal Cannula 04/12/25 18:55 O2 Flow Rate 6 04/12/25 16:44 FiO2 40 04/13/25 08:03 04/12/25 04/13/25 04/13/25 22:59 06:59 14:59 Intake Total 1654.167 / 1654.167 964.50 / 2618.667 59.715 / 59.715 Output Total 2513 / 2513 Balance -858.833 / -858.833 964.50 / 105.667 59.715 / 59.715 Weight last 48 hrs Weight 74.843 kg Weight 80.5 kg Weight 54.567 kg Weight 54.431 kg Physical Exam 2 Narrative: General: Moaning in pain, altered, GCS: E1, M1, levo 1, maintaining airway HEENT: PERRLA, pupils bilaterally equal and reactive Chest: Bilateral bronchial breath sounds all occasionally lung cantu, coarse crackles all over lung cantu left more than right, upper more than lower CVS: S1-S2 regular, no murmurs, no tachycardia, no gallops, no rubs Abdomen: Soft, nontender, no organomegaly, bowel sounds present Neuro: No focal deficits, no facial deformity, moving all limbs Urinary Catheter Management: Guzman: Cath Placed During This Visit: yes Reason for Continuing Indwelling Catheter: Accurate Measurement of Urinary Output in Critically Ill Patients Urinary Catheter Date of Insertion: 04/12/25 Urinary Catheter Time of Insertion: 20:45 Data 04/13/25 07:57 04/13/25 07:57 Micro: Microbiology 04/13/25 01:45 Gram Stain - Final Peritoneal Fluid 04/12/25 14:28 Blood Culture - Preliminary Blood SPECIMEN COLLECTED 04/12/25 14:27 Blood Culture - Preliminary Blood SPECIMEN COLLECTED A&P Assessment and plan 1. End stage renal disease on dialysis: 2. Hypoglycemia: 3. Hypothermia: 4. Acidosis: 5. Acute on chronic heart failure with preserved ejection fraction (HFpEF): 6. Benign hypertension: 7. Cirrhosis of liver: 8. Other ascites: 9. Sepsis: 10. Pneumonia: 11. Hyperkalemia: 12. Pulmonary hypertension: 13. Buck coma scale total score 3-8, at arrival to emergency department: 14. Goals of care, counseling/discussion: Plan: Sepsis: SIRS: Tachycardic, hypothermia, Leukocytosis Source: Left upper lobe End organ damage: Acute infectious encephalopathy, persistent hypoglycemia Lactic acid within normal limits Cannot give excessive fluid given concerns for fluid overload Monitor blood pressures. Keep mean artery pressure 65 mmHg. Follow-up blood culture, negative MRSA swab, appreciate trend procalcitonin, pending bacterial antigen, ascites tap culture. Continue with empirical IV vancomycin and Zosyn for now. End-stage renal disease on hemodialysis: Appreciate nephrology recommendations. Dialysis as per nephrology. Persistent hypoglycemia: Could be in setting of sepsis. Cannot rule out excessive insulin intake. Follow-up drug screen, C-peptide. Continue D10 at 125 cc/h. Cannot give higher dose given concern for fluid overload. Repeat dose of glucagon. Continue with hydrocortisone 1 mg/kg body weight Q6 hourly. Check blood glucose every 1 hour. Hypoglycemia protocol. Ascites: Appreciate fluid studies. Follow-up culture results. Low concern for SBP for now. History of PE/ Chest pain: As per family ember has been having chest pain for last 3 days. History of CAD. Negative troponin cycled appreciated. Elevated in setting of type II AL versus CKD. CTA ruled out PE. A-fib with RVR: Most likely in setting of sepsis. Currently on Cardizem drip. Can wean off. Patient takes Coreg at home. Start on IV metoprolol 5 mg every 6 hours. Will start on heparin drip if persistently in A-fib with RVR in next 24 hours. Hypertension: Goal blood pressure less than 140/90 mmHg. Continue with clonidine patch, metoprolol as above. IV hydralazine as needed for systolic of more than 160 mmHg. Altered mental status: High concern for anoxic brain injury versus press syndrome. CT head showing attenuation at brainstem area. Cannot rule out small bleed. Discussed with neurology. Can plan for repeat CT head. Will consult neurology for further recommendations given concern for anoxic brain injury. Chronic pain management: Takes hydromorphone 1 mg every 4 hours as needed at home. More frequently as per family member. Continue with Dilaudid 0.5 every 6 hours as needed for now. Hypothermia: Warm blanket for now. Echocardiogram awaited. Goals of care discussion: Discussed in detail with patient's daughter/next of kin Ms. Diana Gibbs at bedside. We discussed Mal is significantly sick. Discussed there is a high concern for anoxic brain injury because of prolonged hypoglycemia prior to coming to the hospital. Even after being on D10, steroid and glucagon his blood sugars are barely being maintained. There is a concern for severe sepsis. Given his baseline health, quality of life there is a high chance of mortality, even if he survives high chance of significant deterioration of quality of life due to concerns for anoxic brain injury. Daughter verbalized understanding. Would like to continue with DNR/DNI. Would like to see how patient does in next 24 hours and if he does not improve or wake up she would consider hospice. Code status: Discussed in detail with patient's DPOA/daughter at bedside. He had wished to daughter for no chest compressions or mechanical ventilation. DNR/DNI. NPO. Heparin 5000 q12 hourly for DVT prophylaxis Protonix for PUD prophylaxis PDMP PDMP Reviewed: Not Reviewed Attestations 2 Medical Necessity Statement*: Requires further hospitalization for management of altered mental status with concern for poor GCS, persistent hypoglycemia, concern for anoxic brain injury sepsis, end-stage renal disease on hemodialysis Diagnoses End stage renal disease on dialysis N18.6; Z99.2 Hypoglycemia E16.2 Hypothermia T68.XXXA Acidosis E87.20 Acute on chronic heart failure with preserved ejection fraction (HFpEF) I50.33 Benign hypertension I10 Cirrhosis of liver K74.60 Other ascites R18.8 Ascites type: other type Sepsis A41.9 Pneumonia J18.9 Hyperkalemia E87.5 Pulmonary hypertension I27.20 [place] coma scale total score 3-8, at arrival to emergency department R40.2432 Altered mental status type: coma Coma depth: Buck coma 3-8 Coma timing: at arrival to emergency department Goals of care, counseling/discussion Z71.89
--- NOTE | 2025-04-13 13:43 | PC.NURSE ---
to ct and back family in for visit at this time , daughter requesting no information be given to anyone but herself , verified not even his mother, doctor talked with them about status and prognosis nuro consult done
[2025-04-13 13:52] LABS: Glucose Urine UA Trace (Normal); Nitrate Urine Negative (Negative); Specific Gravity, Urine 1.013 (1.005-1.030)
[2025-04-13 13:54] LABS: Add Urine Microscopic? YES; Universal Test for UA Present (0)
--- NOTE | 2025-04-13 15:06 | PC.NURSE ---
in room to assess pt , unable to obtain blood pressure cuff changed color dusky with agonal resp noted unable to place on bipap unable to protect airway at this time. decreased status , update to daughter who is to call other family and then decide about care moving forward or comfort
--- NOTE | 2025-04-13 15:36 | PC.HD ---
This RN was in patient's room preparing to initiate dialysis. Patient began exhibiting agonal respirations and skin color turned dusky. Per primary RN, EDGARDO, family was gathering to discuss possible comfort measures. Requested I move on to another dialysis patient while family had discussions.
--- NOTE | 2025-04-13 17:36 | PC.NURSE ---
pt daughter here related all family here that need to bed Dr Jasso called and transition to comfort care ivf stopped ect
--- NOTE | 2025-04-13 17:44 | PM.CONSULT ---
Providers/Reason For Consult Consulting Physician/Specialty*: Dr. Liane Prasad Reason for Consult*: Anoxic brain injury Attending Physician: Kerwin Platt MD Primary Care Provider: Delio Salazar MD History of Present Illness History of Present Illness Mal Gibbs is a 44 year old male with end-stage renal disease congestive heart failure and hepatic ascites. He is on dialysis and requires frequent paracentesis. He was last known to be normal 24 hours before he was found unresponsive with a glucose of 20. He was hypothermic. He arrived in the emergency department yesterday at 1358 and had no symptoms to suggest stroke but was severely acidotic. His glucose was 11 in the emergency department. Lactate was not elevated. The patient had been complaining of chest pain for several days and refused to go to the emergency room. He also skipped his dialysis on Thursday the (arrived here on the ). The radiologist commented on reduced signal in the brainstem on his initial CT scan of the head. The patient has been obtunded since arrival. He has been able to maintain his own airway. He was taken for dialysis today but the family is beginning to recognize the futility of further treatment. The patient was in atrial fibrillation with RVR and had other signs of sepsis. He has pneumonia. Acute on chronic heart failure and many overwhelming medical problems that are well discussed by Dr. Smith and his very thorough note. I spoke with Dr. Jasso numerous times and reviewed his CAT scans with Dr. Jasso. Review of Systems Narrative: See Dr. Jasso history and physical 04/12 and today. Medications/Allergies Home Medications ?Medication ?Instructions ?Recorded ?Confirmed ?Last Taken ?Type ferric citrate 210 mg iron tablet 630 mg PO TID 11/03/21 04/12/25 03/24/25 History (Auryxia) aspirin 81 mg tablet,delayed 81 mg PO BEDTIME 02/21/22 04/12/25 03/24/25 History release vit B,C-folic ac 800 mcg-zinc 12.5 1 tab PO QAM 10/01/22 04/12/25 03/24/25 History mg-selen-D3 2,000 unit-vit E tablet (RenaPlex-D) carvedilol 25 mg tablet 50 mg PO Q12H 01/09/23 04/12/25 03/24/25 History sevelamer carbonate 800 mg tablet 1,600 mg PO TID 05/16/24 04/12/25 03/24/25 History albuterol sulfate 90 mcg/actuation 1 puff inhalation Q6H PRN 09/19/24 04/12/25 03/24/25 History aerosol inhaler Shortness Of Breath umeclidinium 62.5 mcg/actuation 1 inh inhalation DAILY 09/19/24 04/12/25 03/24/25 History blister powder for inhalation (Incruse Ellipta) hydromorphone 4 mg tablet 4 mg PO Q6H PRN Pain 10/31/24 04/12/25 03/24/25 History mupirocin 2 % topical ointment 1 applic topical BID #22 grams 01/18/25 04/12/25 03/24/25 Rx ([facility]) prednisone 10 mg tablet 40 mg (4 x 10 mg) PO DAILY #16 tabs 02/20/25 04/12/25 03/24/25 Rx amlodipine 10 mg tablet 10 mg PO DAILY 04/12/25 04/12/25 Unknown History famotidine 20 mg tablet 20 mg PO BID 04/12/25 04/12/25 Unknown History hydralazine 100 mg tablet 100 mg PO Q8H 04/12/25 04/12/25 Unknown History pantoprazole 40 mg tablet,delayed 40 mg PO DAILY 04/12/25 04/12/25 Unknown History release sertraline 50 mg tablet 50 mg PO DAILY 04/12/25 04/12/25 Unknown History Allergies Allergy/AdvReac Type Severity Reaction Status Date / Time spironolactone Allergy Intermediate facial Verified 03/10/25 08:21 swelling nifedipine Allergy Unknown ALGY-Swell Verified 03/10/25 08:21 Lip/Tongue/Throat haloperidol (From Haldol) Allergy ADR-Irritab Verified 03/10/25 08:21 le ketorolac Allergy Unknown Verified 03/10/25 08:21 lisinopril Allergy ADR-Swelling Verified 03/10/25 08:21 of the Eye Current Medications Generic Name Dose Route Start Last Admin Trade Name Freq PRN Reason Stop Dose Admin Docusate Sodium 100 mg 04/12/25 18:53 04/13/25 16:18 Docusate Sodium 100 Mg Capsule PO Not Given BID [facility] Hydralazine HCl 10 mg 04/12/25 17:22 04/13/25 04:35 Hydralazine 20 Mg/Ml Inj 1 Ml IVP 10 mg Q4H PRN Administration SBP More than 160 mmhg Hydromorphone HCl 0.5 mg 04/12/25 19:00 04/13/25 16:54 Hydromorphone 0.5 Mg/0.5 Ml Inj IVP 0.5 mg Q4H PRN Administration pain scale 6-10 Pantoprazole Sodium 40 mg 04/12/25 18:53 04/12/25 19:16 Pantoprazole 40 Mg Sdv IVP 40 mg Q24H [facility] Administration Senna/Docusate Sodium 1 tab 04/13/25 17:00 04/13/25 17:04 Sennosides-Docusate Tablet PO Not Given BID [facility] PFSH Acute PFSH: Medical History Abdominal ascites history of intermittent paracentesis, transudative fluid; prior work up has included negative biopsy, ceruloplasmin level normal, low iron, high ferritin, normal TIBC, negative HIV, hepatitis panel negative, JESÚS/SCL 70/double-stranded DNA antibodies negative, Alpha-fetoprotein level unremarkable, nonalcoholic by history, has hepatomegaly and splenomegaly Cirrhosis of liver Epididymitis 06/2022 Dyslipidemia History of home oxygen therapy COPD (chronic obstructive pulmonary disease) Patient under care of multiple providers Umbilical hernia Atherosclerosis of coronary artery Stent and balloon angioplasty to proximal 1 OM branch Congestive heart failure preserved ejection fraction History of cardiovascular stress test 07/2022 at [facility] perfusion imaging probably normal, no reversible defects, small fixed defect in apical anterior wall, EF 54%, nonischemic response to stress by EKG criteria Depression Pulmonary hypertension Uses bilevel positive airway pressure (BPAP) ventilation at home History of coronary angiogram 11/2021 - patent stent Inguinal hernia Chronic respiratory failure on home oxygen and bipap Nicotine dependence, cigarettes, with other nicotine-induced disorders Generalized anxiety disorder with panic attacks ESRD on dialysis Chronic abdominal pain COVID 05/25 Hypertensive emergency recurrent episodes Urethral stricture Pulmonary embolism 09/21 CTA inconclusive for very tiny peripheral LEFT lower lobe pulmonary artery sub segmental emboli versus poor opacification. Anemia chronic kidney disease Arteriovenous fistula for hemodialysis in place, secondary Degenerative disc disease, lumbar Hypertension uncontrolled Surgical History History of arteriovenous graft left upper extremity fistula, revision 07/2024 in [place] Stented coronary artery H/O hand surgery Amputation right 2&3 fingers 2017 History of adenoidectomy Family History Other Hypertension Social History Smoking and tobacco/nicotine status: current every day tobacco/nicotine user cigarettes Years cigarettes smoked: 21 [ Other cigarette details: started age 20, currently 0.5ppd ] Quit status (tobacco/nicotine): considering quitting Alcohol intake: never Substance/Drug Use: never Additional social history: Lives with his mother his sister and one of his kids. Patient wants full CODE STATUS as discussed on 10/31/2024 Household members: family Number of children: 3 Current occupational status: disabled Do you think of yourself as: Straight/Heterosexual Vitals/I&O/Wt Last Vital Signs Temp 97.0 F L 04/13/25 05:01 Pulse 79 04/13/25 16:00 Resp 8 L 04/13/25 16:00 BP 131/101 04/13/25 16:00 Pulse Ox 96 04/13/25 16:00 O2 Del Method Nasal Cannula 04/12/25 18:55 O2 Flow Rate 6 04/12/25 16:44 FiO2 40 04/13/25 08:03 04/13/25 04/13/25 04/13/25 06:59 14:59 22:59 Intake Total 964.50 / 2618.667 1059.715 / 1059.715 50 / 1109.715 Balance 964.50 / 797.955 8551.715 / 1059.715 50 / 1109.715 Weight last 48 hrs Weight 165 lb Weight 177 lb 7.554 oz Weight 120 lb 4.8 oz Weight 120 lb Physical Exam Narrative: Exam not performed Urinary Catheter Management: Guzman: Cath Placed During This Visit: yes Reason for Continuing Indwelling Catheter: Accurate Measurement of Urinary Output in Critically Ill Patients Urinary Catheter Date of Insertion: 04/12/25 Urinary Catheter Time of Insertion: 20:45 Data 04/13/25 07:57 04/13/25 07:57 Micro: Microbiology 04/13/25 01:45 Gram Stain - Final Peritoneal Fluid Body Fluid Culture - Preliminary 04/12/25 14:27 Blood Culture - Preliminary Blood NEGATIVE TO DATE 04/12/25 14:28 Blood Culture - Preliminary Blood NEGATIVE TO DATE A&P Assessment and plan 1. Hypoglycemia: 44-year-old unfortunate man with multisystem disease at baseline who presents with sustained hypoglycemia and profound encephalopathy secondary to hypoglycemia. I talked with Dr. Jasso numerous times today. I came to see the patient and the family had just declared comfort care only so I did not see the patient 2. Cirrhosis of liver: 3. End stage renal disease on dialysis: 4. Acidosis: PDMP PDMP Reviewed: Not Reviewed Coding Level of Care Code Acute Code for [facility] Fwd Diagnoses Hypoglycemia E16.2 Cirrhosis of liver K74.60 End stage renal disease on dialysis N18.6; Z99.2 Acidosis E87.20
[2025-04-13] MEDS: morphine 4 mg/mL SDV 1 mL IVP ×3 (19:23→23:52)
[2025-04-13] MEDS: LORazepam 2 mg/mL INJ 1 mL IVP ×2 (19:23→22:26)
--- NOTE | 2025-04-13 19:27 | USCV_ITS ---
Mal Gibbs Age: 44 Gender: M : 1980 Exam Date: 04/13/2025 03:36 Ordering Phys: Kerwin Platt MD Technologist: SUSIE Exam Location: [facility] [place] Indication: pericardial effusion, possible DELANEY, end-stage renal on dial, ascites s/p para, 6L, hx pulm HTN. BP: 179 / 129 HR: 95 Rhythm: Atrial fibrillation Technical Quality: Adequate MEASUREMENTS (Male / Female) Normal Values 2D ECHO LV Diastolic Diameter PLAX 5.1 cm 4.2 - 5.9 / 3.9 - 5.3 cm IVS Diastolic Thickness 1.7 cm 0.6 - 1.0 / 0.6 - 0.9 cm IVS Systolic Thickness 2.0 cm LVPW Diastolic Thickness 1.8 cm 0.6 - 1.0 / 0.6 - 0.9 cm LVPW Systolic Thickness 1.9 cm LVOT Diameter 2.1 cm LV Ejection Fraction 2D Teich 28.6 % LV Ejection Fraction MOD 4C 32.7 % LV Ejection Fraction MOD 2C 10.5 % LV Ejection Fraction 2C AL 12.4 % LA Diameter 5.7 cm Aorta at Sinotubular Diameter 2.6 cm IVC Diameter 2.8 cm M-MODE LA Ao Ratio MM 1.5 AV Cusp Separation MM 2.4 cm DOPPLER AV Peak Velocity 122.0 cm/s LVOT Peak Velocity 77.0 cm/s AV Area Cont Eq vti 3.2 cm squared AV Area Cont Eq pk 2.2 cm squared MV Peak Velocity 190.0 cm/s MV Area PHT 4.8 cm squared Mitral E to A Ratio 0.0 TV Peak Velocity 352.5 cm/s TR Peak Velocity 380.0 cm/s TR Peak Gradient 57.8 mmHg TV Peak E Velocity 38.0 cm/s PV Peak Velocity 69.0 cm/s FINDINGS Left Ventricle Normal left ventricular cavity size. Severe global left ventricular hypokinesis with severely reduced ejection fraction of 29%. Moderate concentric left ventricular hypertrophy. Unable to assess left ventricular diastolic function due to severe mitral annular calcification. Right Ventricle Moderate right ventricular enlargement. No right ventricular hypertrophy. Moderately reduced right ventricular systolic function. Septal flattening consistent with right ventricular volume and right ventricular pressure overload. Right Atrium Severe right atrial enlargement Left Atrium Severe left atrial enlargement IA Septum The atrial septum appearance is normal Mitral Valve Severe mitral annular calcification. Mild to moderate mitral valve regurgitation with an eccentric anteriorly directed jet. Mild to moderate mitral valve stenosis with a mean pressure gradient of 5.7 mmHg at a heart rate of 77 bpm. Aortic Valve Trileaflet aortic valve with sclerosis or stenosis. Mild aortic valve regurgitation Tricuspid Valve Moderate tricuspid valve regurgitation. Severe pulmonary artery systolic pressure hypertension with PASP of 78 mmHg. Pulmonic Valve Mild pulmonic valve regurgitation Pericardium Moderate concentric pericardial effusion with no right ventricular or right atrial collapse and no significant respiratory variation of the mitral and tricuspid valve inflow velocities to suggest tamponade. Large left pleural effusion Aorta Normal aortic root and ascending aorta size IVC Dilated IVC with less than 50% collapse with inspiration. CONCLUSIONS 1. Severely reduced left ventricular systolic function with global hypokinesis and ejection fraction of 29%. 2. Moderate concentric left ventricular hypertrophy 3. Moderate right ventricular enlargement and moderate right ventricular hypokinesis. 4. Mild to moderate mitral valve regurgitation and mild to moderate mitral valve stenosis 5. Mild aortic valve regurgitation 6. Severe pulmonary hypertension with ventricular septal flattening due to right ventricular pressure and volume overload. 7. Moderate concentric pericardial effusion without signs of tamponade 8. Moderate tricuspid valve regurgitation 9. Large left pleural effusion 10. Severe biatrial enlargement 11. Compared to echocardiogram 08/22/2024, the left ventricular systolic function is new and the left ventricular ejection fraction has decreased from 65% to 28%, the right ventricular enlargement and systolic dysfunction is new, the valvular regurgitation is new, the pericardial effusion has increased in size, the pulmonary hypertension is new, and the pleural effusion is new. Devan Reid MD, FACC (Electronically Signed) Final Date: 13 April 2025 17:26 S
[2025-04-13] MEDS: atropine 1% op soln 2 mL Btl 3 DROP SUBLINGUAL (19:35)
--- NOTE | 2025-04-14 00:20 | PC.NURSE ---
Report called to Judie on [facility], patient transferred to room 266 at [id number]. Family at bedside.
--- NOTE | 2025-04-14 02:27 | PC.PHAR ---
daughter requested for vitals to be taken occasionally when pt arrived on [facility] floor @ 2300
[2025-04-14 05:13] VITALS: PULSE 97; RESP 18; TEMP 36.2; O2SAT 92
[2025-04-14 08:26] VITALS: BP 127/90; PULSE 99; O2SAT 91
[2025-04-14 11:10] VITALS: BP 123/78; PULSE 100; O2SAT 91
--- NOTE | 2025-04-14 11:15 | PM.DDS ---
Discharge Providers DDS Date of Admission: 04/12/25 17:04 Date Summary Completed: 04/14/25 Attending Provider at Admission: Kerwin Platt MD Time of : 10:41 Attending Provider at Discharge: Kerwin Platt MD Consults: Telemetry nephrology Primary Care Provider: Delio Salazar MD DS Diagnoses Hospital Diagnoses 1. Hypoglycemia: 2. Cirrhosis of liver: 3. End stage renal disease on dialysis: 4. Acidosis: Reason for Visit Reason for Visit AMS Summary Date and Time of Date of : 04/14/25 Time of : 10:41 Summary Summary: Mal Gibbs is a 44 year old male With past medical history of end-stage renal disease on hemodialysis with history of multiple missed dialysis with last dialysis on Thursday. Today is Thursday. He missed his dialysis yesterday. PAST medical history of ascites requiring multiple paracentesis, hypertension, cirrhosis of liver, COPD, congestive heart failure with preserved action fraction, pulmonary hypertension, BiPAP nightly at home, HASMUKH was brought to the ER today via EMS because of altered mental status. As per ED staff she was at bedside even complaining of chest pain for last 2 to 3 days but has refused to come to the hospital. Refused to go for his paracentesis earlier this week and dialysis yesterday. Today he was found to be somnolent hence he was brought to the ER. When he came to the ER he was found to have persistent hypoglycemia with blood glucose of 11. He was given multiple doses of dextrose. After which his blood glucose did drop and eventually he was started on dextrose drip. He is currently on 4 L of oxygen supplementation, moaning in pain, incoherent. Chest x-ray on examination concerning for fluid overload with congestive heart failure, possible left upper lobe consolidation. Patient was roomed to the hospital further evaluation and management of significantly dangerous persistent hypoglycemia which was treated with D10 infusion along with steroids and multiple doses of glucagon. Nephrology was consulted and any underwent emergent dialysis. He did have episode of A-fib with RVR for which he was started on Cardizem drip. Echocardiogram was done which showed a new EF of 25% with severe LV and RV hypokinesia. Given altered mental status CT head was done which was concerning for possible anoxic brain injury. Goals of care discussions were done with family/patient's DPOA daughter at bedside who eventually made patient comfort care on 04/13. Patient in comfortable state on 04/14 with family at bedside at 10:41 AM. Additional Data Confirmation of as documented by pronouncing clinician: no pulse, no respirations and no heart sounds Family: at bedside Additional persons at bedside: nursing staff and nephrology social worker Attending/PCP notified?: I am attending Was code activated?: No Autopsy requested?: No Advance directives?: No Hospice patient?: Yes Discharge Plan Discharge Patient Disposition: Condition: Stable Probable Cause of Probable cause of : Hypoglycemia without diagnosis of diabetes mellitus DS Attestations Time Spent in /Discharge Care*: less than 30 min Quality - AMI: AMI present?: No Quality - Stroke: CVA present?: No Quality - VTE: VTE present?: No Coding Level of Care Code 83835 Total time (in minutes) for Discharge: 30 Diagnoses Hypoglycemia E16.2 Cirrhosis of liver K74.60 End stage renal disease on dialysis N18.6; Z99.2 Acidosis E87.20
--- NOTE | 2025-04-14 11:16 | PC.NURSE ---
MTS contacted at this time. MTS will be reaching out to the family. Pt can go to the morgue when family is gone
--- NOTE | 2025-04-14 11:25 | PC.NURSE ---
Patient at 1041 on 04/14/25 with family present.
[2025-04-14 13:53] VITALS: BP 0/0; PULSE 0; RESP 0; TEMP -17.7; TEMP 0; O2SAT 0
--- NOTE | 2025-04-14 15:17 | PC.NURSE ---
[place] [facility] [place] [facility]TS arranging for transport
--- NOTE | 2025-04-14 18:09 | PC.NURSE ---
The pts body was retrieved by ESTHER at 0973
== END 2025-04-14 15:30 | disposition expired | DRG 871 ==
LOC: ER 15:28 → ICU 17:04 → MEDSURG 04-13 23:48
PROVIDERS: Internal Medicine; Internal Medicine Nephrology; Admitting Provider Student in an Organized Health Care Education/Training Program; Emergency Provider Emergency Medicine; PCP Family Medicine; Visit Provider Student in an Organized Health Care Education/Training Program
DX: A41.9 Sepsis, unspecified organism (principal); I50.33 Acute on chronic diastolic (congestive) heart failure; N18.6 End stage renal disease; J18.9 Pneumonia, unspecified organism; I13.2 Hypertensive heart and chronic kidney disease with heart failure and with stage 5 chronic kidney disease, or end stage renal disease; R18.8 Other ascites; G93.49 Other encephalopathy; J96.10 Chronic respiratory failure, unspecified whether with hypoxia or hypercapnia; G93.1 Anoxic brain damage, not elsewhere classified; E87.4 Mixed disorder of acid-base balance; E87.70 Fluid overload, unspecified; E16.2 Hypoglycemia, unspecified; R65.20 Severe sepsis without septic shock; Z66 Do not resuscitate; Z51.5 Encounter for palliative care; E78.5 Hyperlipidemia, unspecified; Z99.2 Dependence on renal dialysis; I25.10 Atherosclerotic heart disease of native coronary artery without angina pectoris; D63.1 Anemia in chronic kidney disease; F17.210 Nicotine dependence, cigarettes, uncomplicated; I48.91 Unspecified atrial fibrillation; F41.1 Generalized anxiety disorder; F32.A Depression, unspecified; J44.9 Chronic obstructive pulmonary disease, unspecified; I27.20 Pulmonary hypertension, unspecified; G89.29 Other chronic pain; R68.0 Hypothermia, not associated with low environmental temperature; K74.60 Unspecified cirrhosis of liver; D69.6 Thrombocytopenia, unspecified; E87.5 Hyperkalemia; Z91.158 Patient's noncompliance with renal dialysis for other reason; Z79.82 Long term (current) use of aspirin; Z79.899 Other long term (current) drug therapy; Z88.8 Allergy status to other drugs, medicaments and biological substances; Z99.81 Dependence on supplemental oxygen; Z95.5 Presence of coronary angioplasty implant and graft; Z86.711 Personal history of pulmonary embolism; Z89.021 Acquired absence of right finger(s)
CPT/HCPCS: 36415; 36416; 36600; 51702; 70450; 71045; 71275; 74177; 80048; 80051; 80053; 80202; 80307; 80503; 81001; 82330; 82693; 82805; 82945; 82962; 83036; 83605; 83615; 83735; 83880; 83986; 84100; 84145; 84157; 84443; 84484; 84681; 85025; 85610; 86706; 86803; 87040; 87070; 87075; 87086; 87205; 87340; 89050; 90935; 93005; 93306; 94660; 96365; 96367; 96372; 99285; 99291; 99292; J0360; J1171; J1610; J1644; J1720; J2060; J2270; J2470; J2543; J3373; J3490; J7050; J7799; J9999